=== PATIENT | female | born 1980 | race Caucasian/White ===

== ENCOUNTER 2022-09-18 19:33 | Outpatient (CLI) | payer OTHER, MEDICAID, SELFPAY ==
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
--- OUTSIDE RECORDS SUMMARY | 2022-10-21 08:45 | XMS_ITS | Encounter Summary ---
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 [place] [address] Mago Swift, Lead Systems Mgr Skewer Up - 08/05/21 [facility] Clinical Leela Jarvis, [facility] Pharmacist 07/26/22 05/15/[address] [place], [place] [phone] Marvin Miranda MD Gastroenterology 09/21/22 500 [facility] [address] [place] [address] Clari Ruiz Assigned MTM 09/17/22 Jocelyn [facility] Pharmacist [address] [facility] [address] [place] [address] documented as of this encounter
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
--- OUTSIDE RECORDS SUMMARY | 2022-10-21 08:46 | XMS_ITS | Encounter Summary ---
:1980 Author Organization [place] Address [address] [place] [address] Care Team Providers Name Role Phone Aydee Burton DOCUMENT MANAGEMENT ANALYST ALUMINUM SIDING INSTALLER Primary Care Provider Aydee Burton DOCUMENT MANAGEMENT ANALYST ALUMINUM SIDING INSTALLER Unavailable [phone] Louisa Hood DOCUMENT MANAGEMENT ANALYST ALUMINUM SIDING INSTALLER Unavailable [phone] Angel Hannah MD Unavailable Lesly Celaya MD Unavailable Tawana Patel MA Unavailable Unavailable Ramses Mcpherson MD Unavailable [phone] Obdulio Barrera MD Unavailable Obdulio Barrera MD Unavailable Lesvia Stanley EP Unavailable Marilia Deluna PhD Unavailable Niyah Decker [facility] Unavailable Lesvia Stanley Unavailable Delia Avila [facility] Unavailable [phone] Jamison Mago Terri [facility] Unavailable Leela Jarvis [facility] Unavailable Niyah Decker [facility] Unavailable Reason for Visit Reason Onset Date Comments Symptoms 09/15/2022 Face and neck pain Encounter Details Date Type Department Care Team Description 09/15/[address] [facility] Pain Julio Ponce MD Symptoms (Face [place] [address] [place] neck pain) [address] [place] [address] [address] [place] [address] [phone] Social History Tobacco Use Types Packs/Day Years [...] How often do you attend catholic or christianity services? 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/2021 7:53 PM DIE MOUNTER COVID-19 Exposure Response Date Recorded In the [...] removal While on the phone with this typewriter repairer pt was informed that she could be [...] to meet with staff. Rachel Russell RN Locomotive Lubricating Systems Clerk [facility] Telephone Encounter - Oliver Alfredo - 09/15/2022 12:53 PM CDT [facility] Call Center Phone Message May a detailed [...] can do. Please call Pt back at [phone] [facility] to advise. Action Taken: Message routed to: Other: [facility] Pain Travel Screening: Not Applicable documented in this encounter Plan of Treatment Upcoming Encounters Date Type Specialty Care Team Description 10/21/2022 Office Visit Pulmonology Obdulio Barrera MD [address] [id number] (Wo rk) 10/25/2022 PRE VISIT ENT Charo Burton MD Previsit [address] [place] [address] [phone] (Wo rk) 10/25/2022 Office Visit ENT Charo Burton MD [address] [place] [address] [phone] (Wo rk) 10/25/2022 Office Visit ENT Provider, Ent Dysphonia Opinion Polls Survey Worker 10/25/2022 Virtual Visit Pain & Palliative Care [place] Del[place] [address] [place], [place] [address] 10/28/2022 Appointment Speech Therapy Anabel Chew, TYPEWRITER REPAIRER [address] 126915 (Wo rk) 11/17/2022 Appointment Speech Therapy Anabel Chew, TYPEWRITER REPAIRER [address] [phone] (Wo rk) 12/01/2022 Office Visit Pain & [place] [address] [place], [place] [address] (Wo rk) 12/23/2022 Office Visit Neurology Colby Yeung MD [address] [place] [address] (Wo rk) documented as of this encounter Goals Goal Patient Goal Associated Recent Patient-Stated? Author Type Problems Progress Attend Speciality Care Plan Establish Care 50% Claudia Tee rn, Appointments (10/10/2022 Mago Murray, (PEST CONTROL SERVICE TECHNICIAN, 9:29 AM DIE MOUNTER) [facility] Psychiatry, Counseling, and the Sleep Clinic) Note: Formatting of this note is differe nt from the original. Barriers: Appointment availability. Strengths: Recognition of need, Care Water Pollution Control Inspector rdination involvement. Patient expressed understanding of goal: [...] Celaya MD [facility] Surgery [facility] To address painful lumps in my abdomin [...] (10/10/2022 Mago Prieto well-managed. self-managed 9:29 AM DIE MOUNTER) MARISA Murray W Note: Formatting of this [...] documented as of this encounter Care Teams Control Systems Developer Relationship Specialty Start Date End Date Aydee Burton, PCP - General Nurse Practitioner - 05/17/21 DOCUMENT MANAGEMENT ANALYST ALUMINUM SIDING INSTALLER Family [address] [place] [address] [phone] Aydee Burton, Assigned PCP 04/28/21 DOCUMENT MANAGEMENT ANALYST ALUMINUM SIDING INSTALLER [address] [place] [address] 094052 Louisa Hood, Assigned Neuroscience 07/11/21 DOCUMENT MANAGEMENT ANALYST ALUMINUM SIDING INSTALLER Provider 500 [place], [place] [address] [place], Assigned Sleep 08/01/21 Angel Turcios, Provider [address] [place], [place] [phone] Lesly Celaya MD Assigned Surgical 09/05/21 [address] Provider [place], [place] [address] Tawana Patel MA [facility] 09/30/21 Worker Ramses Mcpherson Assigned OBGYN 11/07/21 MD Onesimo Provider [address] [place], [place] [phone] Obdulio Barrera MD Critical Care 01/24/22 MD 420 [facility] 276 [place], [place] [address] Obdulio Barrera, Assigned Pulmonology 02/06/22 MD Provider 420 [facility] 276 [place], [place] [address] Lesvia Stanley, GHADA Cardiac Rehabilitation 03/03/22 03/03/23 [facility] Therapist [address] [place] [address] Marilia Deluna, PhD Assigned Behavioral 02/20/22 [address] [facility] [place] [address] Niyah Decker, [facility] Pharmacist Pharmacist 03/07/22 420 [facility] 812 [place], [place] [address] Lesvia Stanley, GHADA Cardiac Rehabilitation 03/17/22 03/17/23 [facility] Therapist [address] [address] Delia Avila, Pharmacist Pharmacist 06/07/22 [facility] [address] [place], [place] [address] Mago Swift, [facility] Lead Locomotive Lubricating Systems Clerk Boring Mill Operator - 08/05/21 Clinical Leela Jarvis, [facility] Pharmacist 07/26/22 05/15/23 [address] [facility] [address] [place] [id number] Niyah Decker, [facility] Assigned MTM 08/10/22 09/16/[address] [place] [address] 812 [place] [address] documented as of this encounter
--- OUTSIDE RECORDS SUMMARY | 2022-10-21 08:46 | XMS_ITS | Encounter Summary ---
:1980 Author Organization [place] Address [address] [place] [address] Care Team Providers Name Role Phone Aydee Burton FULL STACK PYTHON DEVELOPER ELECTRICAL SOLDERER Primary Care Provider Aydee Burton FULL STACK PYTHON DEVELOPER ELECTRICAL SOLDERER Unavailable [phone] Louisa Hood FULL STACK PYTHON DEVELOPER ELECTRICAL SOLDERER Unavailable [phone] Angel Hannah MD Unavailable Lesly Celaya MD Unavailable Tawana Patel MA Unavailable Unavailable Ramses Mcpherson MD Unavailable Obdulio Barrera MD Unavailable [phone] Obdulio Barrera MD Unavailable [phone] Lesvia Stanley EP Unavailable Marilia Deluna PhD Unavailable Niyah Decker [facility] Unavailable Lesvia Stanley Unavailable Delia Avila [facility] Unavailable [phone] Mago Swift [facility] Unavailable SimonaLeela [facility] Unavailable Clari Ruiz [facility] Unavailable Reason for Visit Reason Onset Date Comments Appointment 09/19/2022 Encounter Details Date Type Department Care Team Description 09/19/2022 Telephone [facility] Aydee Burton, Appointment [place] FULL STACK PYTHON DEVELOPER ELECTRICAL SOLDERER [address] [address] [place] [address] [phone] Social History Tobacco Use Types Packs/Day Years [...] How often do you attend baptism or congregation services? Never 08/05/2021 Do you [...] at Date Recorded Female 11/09/2021 7:53 PM COOK CHILI COVID-19 Exposure Response Date Recorded In the last 10 days, have you been in contact with No / Unsu re 09/18/2022 11:02 PM COOK CHILI someone who was confirmed or suspected to have Coronavirus/COVID-19? documented as of this encounter Miscellaneous Notes Telephone Encounter - Che Torres - 09/19/2022 5:13 PM CST Called patient and appt made for 09/20 at 9:30with Aydee Torres Slot Shift Supervisor CHILI Telephone Encounter - Aydee Burton APRN CNP - 09/19/2022 3:45 PM COOK CHILI Images from the original note were not included. Okay to use tomorrows approval only. Please schedule and make patient aware. TARA Spivey- CHILI Telephone Encounter - Mayda Stephens RN - [...] Please advise when to work in, thanks. CHILI Telephone Encounter - Shireen Purvis - 09/19/2022 [...] we send this information to you in MyChart or would you prefer to receive a phone call?: Patient would prefer a phone call Okay to leave a detailed message?: Yes at Cell number on file: Telephone Information: Call taken on 09/19/2022 at 2:19 PM by Shireen Purvis CHILI documented in this encounter Plan of Treatment Upcoming Encounters Date Type Specialty Care Team Description 10/21/2022 Office Visit Pulmonology Obdulio Barrera MD [address] [place] [address] [phone] (Wo rk) 10/25/2022 PRE VISIT ENT Charo Burton MD Previsit [address] [place] [address] [phone] (Wo rk) 10/25/2022 Office Visit Charo Carter MD [address] [place] [address] (Wo rk) 10/25/2022 Office Visit ENT Provider, Ent Dysphonia Ammonia Solution Preparer 10/25/2022 Virtual Visit Pain & Palliative Care Marilia Deluna[place] PhD [address] [place], [place] [address] 10/28/2022 Appointment Speech Therapy Anabel Chew, MARKETING TECHNOLOGIST [address] 7[address]65 (Wo rk) 11/17/2022 Appointment Speech Therapy Anabel Chew, MARKETING TECHNOLOGIST [address] [address] (Wo rk) 12/01/2022 Office Visit Pain & [place] [address] [place], [place] [address] (Wo rk) 12/23/2022 Office Visit Neurology Colby Yeung MD [address] [place] [address] (Wo rk) documented as of this encounter Goals Goal Patient Goal Associated Recent Patient-Stated? Author Type Problems Progress Attend Speciality Care Plan Establish Care 50% Claudia Tee rn, Appointments (10/10/2022 Mago Murray, (PIN STICKER, 9:29 AM COOK CHILI) [facility] Psychiatry, Counseling, and the Sleep Clinic) Note: Formatting of this note is differe nt from the original. Barriers: Appointment availability. Strengths: Recognition of need, Care Plier Worker rdination involvement. Patient expressed understanding of goal: [...] on: 08/16/2022 9:45 AM Lesly Celaya MD [facility] Surgery [facility] To address painful lumps in [...] (10/10/2022 Mago Prieto well-managed. self-managed 9:29 AM COOK CHILI) M, LICS W Note: Formatting of this [...] documented as of this encounter Care Teams Intervention Manager Relationship Specialty Start Date End Date Aydee Burton, PCP - General Nurse Practitioner - 05/17/21 FULL STACK PYTHON DEVELOPER ELECTRICAL SOLDERER Family [address] [place], [place] [address] Aydee Burton, Assigned PCP 04/28/21 FULL STACK PYTHON DEVELOPER ELECTRICAL SOLDERER [address] [place], [place] [address] Louisa Hood, Assigned Neuroscience 07/11/21 FULL STACK PYTHON DEVELOPER ELECTRICAL SOLDERER Provider 500 [place], [place] [phone] [place], Assigned Sleep 08/01/21 Angel Turcios, Provider [address] [place], [place] [phone] Lesly Celaya MD Assigned Surgical 09/05/21 [address] [facility] Provider [place], [place] [address] Tawana Patel MA [facility] 09/30/21 Worker Ramses Mcpherson Assigned OBGYN 11/07/21 MD Onesimo Provider [address] [facility] [place] [place] [phone] Obdulio Barrera MD Critical Care 01/24/22 420 [facility] 276 [place], [place] [address] Obdulio Barrera, Assigned Pulmonology 02/06/22 MD Provider 420 [facility] 276 [place], [place] [address] Lesvia Stanley, GHADA Cardiac Rehabilitation 03/03/22 03/03/23 [facility] Therapist [address] [place] [address] Marilia Deluna, PhD Assigned Behavioral 02/20/22 [address] [facility] [place] [address] Niyah Decker, [facility] Pharmacist Pharmacist 03/07/22 420 [facility] 812 [place], [place] [address] Lesvia Stanley, GHADA Cardiac Rehabilitation 03/17/22 03/17/23 [facility] Therapist [address] [place] [place] [address] Delia Avila, Pharmacist Pharmacist 06/07/22 [facility] 909 [place], [place] [address] Mago Swift [facility] Lead Electronic Assembly Senior Oracle Developer - 08/05/21 Clinical Leela Jarvis [facility] Pharmacist 07/26/22 05/15/23 3[address] [facility] [address] [place] [address] Clari Ruiz Assigned MTM 09/17/22 Jocelyn [facility] Pharmacist [address] [place] [address] documented as of this encounter
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
--- OUTSIDE RECORDS SUMMARY | 2022-10-21 08:46 | XMS_ITS | Encounter Summary ---
:1980 Author Organization [place] Address [address] [place] [address] Care Team Providers Name Role Phone Aydee Burton GOLD STAMPER DEVELOPMENT SPECIALIST Primary Care Provider Aydee Burton GOLD STAMPER DEVELOPMENT SPECIALIST Unavailable [phone] Louisa Hood GOLD STAMPER DEVELOPMENT SPECIALIST Unavailable [phone] Angel Hannah MD Unavailable Lesly Celaya MD Unavailable Tawana Patel MA Unavailable Unavailable Ramses Mcpherson MD Unavailable Obdulio Barrera MD Unavailable Obdulio Barrera MD Unavailable [phone] Lesvia Stanley EP Unavailable Marilia Deluna PhD Unavailable Niyah Decker [facility] Unavailable Lesvia Stanley Unavailable AustinOhDelia Mel [facility] Unavailable [phone] JamisonMago [facility] Unavailable Leela Jarvis [facility] Unavailable Niyah Decker [facility] Unavailable Encounter Details Date Type Department [...] How often do you attend jew or adventism services? Never 08/05/2021 Do you [...] at Date Recorded Female 11/09/2021 7:53 PM NEIGHBORHOOD PLANNER COVID-19 Exposure Response Date Recorded In the last 10 days, have you been in contact with No / Unsu re 09/15/2022 11:46 AM CDT someone who was confirmed or suspected to have Coronavirus/COVID-19? documented as of this encounter Plan of Treatment Upcoming Encounters Date Type Specialty Care Team Description 10/21/2022 Office Visit Pulmonology Obdulio Barrera MD 420 [facility] 276 [place], [place] [address] (Wo rk) 10/25/2022 PRE VISIT ENT Charo Burton MD Previsit [address] [place] [address] (Wo rk) 10/25/2022 Office Visit ENT Charo Burton MD [address] [place] [address] (Wo rk) 10/25/2022 Office Visit ENT Provider, Ent Dysphonia Stabber 10/25/2022 Virtual Visit Pain & Palliative Care [place] [address] [place], [place] [address] 10/28/2022 Appointment Speech Therapy Anabel Chew, PLASTIC SURGERY TECHNICIAN [address] 638895 (Wo rk) 11/17/2022 Appointment Speech Therapy Anabel Chew, PLASTIC SURGERY TECHNICIAN [address] 198[address] (Wo rk) 12/01/2022 Office Visit Pain & [place] [address] [place], [place] [address] (Wo rk) 12/23/2022 Office Visit Neurology Colby Yeung MD [address] [place] [address] (Wo rk) documented as of this encounter Goals Goal Patient Goal Associated Recent Patient-Stated? Author Type Problems Progress Attend Speciality Care Plan Establish Care 50% No Randal rn, Appointments (10/10/2022 Mago Murray, (JOB PLACEMENT COUNSELOR, 9:29 AM NEIGHBORHOOD PLANNER) [facility] Psychiatry, Counseling, and the Sleep Clinic) Note: Formatting of this note is differe nt from the original. Barriers: Appointment availability. Strengths: Recognition of need, Care Shelver rdination involvement. Patient expressed understanding of goal: [...] Celaya MD [facility] To address painful lumps in my abdomin [...] No Mago Swift well-managed. self-managed 9:29 AM NEIGHBORHOOD PLANNER) M, MARISA W Note: Formatting of this [...] documented as of this encounter Care Teams Sexer Relationship Specialty Start Date End Date Aydee Burton, PCP - General Nurse Practitioner - 05/17/21 GOLD STAMPER DEVELOPMENT SPECIALIST Family [address] [place], [place] [phone] Aydee Burton, Assigned PCP 04/28/21 GOLD STAMPER DEVELOPMENT SPECIALIST [address] [place], [place] [phone] Louisa Hood, Assigned Neuroscience 07/11/21 GOLD STAMPER DEVELOPMENT SPECIALIST Provider [address] [place], [place] [phone] [place], Assigned Sleep 08/01/21 Angel Turcios, Provider [address] [place], [place] [phone] Lesly Celaya MD Assigned Surgical 09/05/21 [address] [place] [place] [address] Tawana Patel MA [facility] 09/30/21 Worker Ramses Mcpherson Assigned OBGYN 11/07/21 MD Onesimo Provider [address] [place] [address] Obdulio Barrera MD Critical Care 01/24/22 420 [facility] 276 [place], [place] [phone] Obdulio Barrera, Assigned Pulmonology 02/06/22 MD Provider 420 [facility] 276 [place], [place] [address] Lesvia Stanley, GHADA Cardiac Rehabilitation 03/03/22 03/03/23 [facility] Therapist [address] [address] Marilia Deluna, PhD Assigned Behavioral 02/20/22 [address] [facility] [place] [place] [address] Niyah Decker, [facility] Pharmacist Pharmacist 03/07/[address] [place] [address] 812 [place], [place] [address] Lesvia Stanley, GHADA Cardiac Rehabilitation 03/17/22 03/17/23 [facility] Therapist [address] [address] Delia Avila, Pharmacist Pharmacist 06/07/22 [facility] [address] [place] [address]4225 Mago Swift, [facility] Lead Labor Operator Nuclear Physician - 08/05/21 Clinical Leela Jarvis [facility] Pharmacist 07/26/22 05/15/[address] [place] [address] [address] [place] [phone] Niyah Decker, [facility] Assigned MTM 08/10/22 09/16/22 420 [facility] 812 Pharmacist [place], [place] [address] documented as of this encounter
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
--- OUTSIDE RECORDS SUMMARY | 2022-10-21 08:46 | XMS_ITS | Encounter Summary ---
:1980 Author Organization [facility] Address [address] [place] [address] Care Team Providers Name Role Phone Aydee Burton ELECTRIC TRACK SWITCH MAINTAINER SQL APPLICATION DEVELOPER Primary Care Provider Aydee Burton ELECTRIC TRACK SWITCH MAINTAINER SQL APPLICATION DEVELOPER Unavailable [phone] Louisa Hood ELECTRIC TRACK SWITCH MAINTAINER SQL APPLICATION DEVELOPER Unavailable [phone] Angel Hannah MD Unavailable Lesly Celaya MD Unavailable Tawana Patel MA Unavailable Unavailable Ramses Mcpherson MD Unavailable [phone] Obdulio Barrera MD Unavailable [phone] Obdulio Barrera MD Unavailable [phone] Lesvia Stanley EP Unavailable Marilia Deluna PhD Unavailable Niyah Decker [facility] Unavailable Lesvia Stanley Unavailable Delia Avila [facility] Unavailable [phone] Mago Swift [facility] Unavailable Leela Jarvis [facility] Unavailable Niyah Decker [facility] Unavailable Reason for Visit Reason Onset Date Comments Facial Pain 09/15/2022 Encounter Details Date Type Department Care Team Description 09/15/2022 Telephone [facility] Aydee Burton Delfina lynda, Facial Pain [place] ELECTRIC TRACK SWITCH MAINTAINER SQL APPLICATION DEVELOPER [address] [facility] [address] [address] [place] [address] [phone] Social History Tobacco Use Types Packs/Day Years [...] How often do you attend rastafarian or druze services? Never 08/05/2021 Do you [...] at Date Recorded Female 11/09/2021 7:53 PM AWS CONSULTANT COVID-19 Exposure Response Date Recorded In the last 10 days, have you been in contact with No / Unsu re 09/15/2022 11:46 AM CDT someone who was confirmed or suspected to have Coronavirus/COVID-19? documented as of this encounter Miscellaneous Notes Telephone Encounter - Mayda Stephens RN - 09/15/2022 12:41 PM CDT Patient calling back. Currently at [facility] and states the wait is 4 hrs. She will contact neuro and/or pain clinic for their recommendation. Telephone Encounter - Aydee Burton APRN CNP - 09/15/2022 11:04 AM CDT Images from the original note were not included. Agree with advise. TARA Spivey-NICOLE Telephone Encounter - Ciara Montejo RN - [...] works for 45 minutes Advised can go for severe pain Advised can call pain clinic and or neurology for advise too Declined to set up an in person appointment at this time. E visit-advised provider Ciara Mg RN [facility] Triage documented in this encounter Plan of Treatment Upcoming Encounters Date Type Specialty Care Team Description 10/21/2022 Office Visit Pulmonology Obdulio Barrera MD [address] [place] [phone] (Wo rk) 10/25/2022 PRE VISIT ENT Cahro Burton MD Previsit [address] [place] [address] (Wo rk) 10/25/2022 Office Visit ENT Charo Burton MD [address] [place] [phone] (Wo rk) 10/25/2022 Office Visit ENT Provider, Ent Dysphonia Automobile Mechanic Supervisor 10/25/2022 Virtual Visit Pain & Palliative Care Marilia Del[place] [address] [place], [place] [address] 10/28/2022 Appointment Speech Therapy Anabel Chew, CLERICAL TRANSCRIBER [address] [address] (Wo rk) 11/17/2022 Appointment Speech Therapy Anabel Chew, CLERICAL TRANSCRIBER [address] [phone] (Wo rk) 12/01/2022 Office Visit Pain & [place] [address] [place], [place] [address] (Wo rk) 12/23/2022 Office Visit Neurology Colby Yeung MD [address] [place] [phone] (Wo rk) documented as of this encounter Goals Goal Patient Goal Associated Recent Patient-Stated? Author Type Problems Progress Attend Speciality Care Plan Establish Care 50% Claudia Tee rn, Appointments (10/10/2022 Mago Murray, (LENS SILVERER, 9:29 AM AWS CONSULTANT) [facility] Psychiatry, Counseling, and the Sleep Clinic) Note: Formatting of this note is differe nt from the original. Barriers: Appointment availability. Strengths: Recognition of need, Care Tanning Consultant rdination involvement. Patient expressed understanding of [...] Lesly Celaya MD [facility] Surgery [facility] To address [...] (10/10/2022 Mago Prieto well-managed. self-managed 9:29 AM AWS CONSULTANT) M, LICS W Note: Formatting of this [...] documented as of this encounter Care Teams Magnetometer Operator Relationship Specialty Start Date End Date Aydee Burton, PCP - General Nurse Practitioner - 05/17/21 ELECTRIC TRACK SWITCH MAINTAINER SQL APPLICATION DEVELOPER Family [address] [place] [id number] Aydee Burton, Assigned PCP 04/28/21 ELECTRIC TRACK SWITCH MAINTAINER SQL APPLICATION DEVELOPER [address] [place] [phone] Louisa Hood, Assigned Neuroscience 07/11/21 ELECTRIC TRACK SWITCH MAINTAINER SQL APPLICATION DEVELOPER Provider [address] [place], [place] [address] [place], Assigned Sleep 08/01/21 Angel Turcios, Provider [address] [address] Lesly Celaya MD Assigned Surgical 09/05/21 [address] Provider [place], [place] [phone] Tawana Patel MA [facility] 09/30/21 Worker Ramses Mcpherson Assigned OBGYN 11/07/21 MD Onesimo Provider [address] [place] [address] Obdulio Barrera MD Critical Care 01/24/[address] [place] [address] [address] [place], [place] [address] Obdulio Barrera, Assigned Pulmonology 02/06/22 MD Provider [address] [place] [address] 276 [place], [place] [address] Lesvia Stanley, GHADA Cardiac Rehabilitation 03/03/22 03/03/23 [facility] Therapist [address] [address] Marilia Deluna, PhD Assigned Behavioral 02/20/22 [address] [facility] [place] [address] Niyah Decker, [facility] Pharmacist Pharmacist 03/07/[address] [place] [address] [address] [place] [address] Lesvia Stanley, GHADA Cardiac Rehabilitation 03/17/22 03/17/23 [facility] Therapist [address] [address] Delia Avila, Pharmacist Pharmacist 06/07/22 [facility] [address] [place], [place] [address] Mago Swift, [facility] Lead Mems Integration Engineer Blueprint Maker - 08/05/21 Clinical Leela Jarvis, [facility] Pharmacist 07/26/22 05/15/[address] [facility] [address] [place] [phone] Niyah Decker, [facility] Assigned MTM 08/10/22 09/16/[address] [place] [address] 81 [place] [address] documented as of this encounter
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
--- OUTSIDE RECORDS SUMMARY | 2022-10-21 08:46 | XMS_ITS | Encounter Summary ---
:1980 Author Organization [place] Address [address] [place] [address] Care Team Providers Name Role Phone Aydee Burton THERAPEUTIC MENTOR HUMAN RESOURCES TRAINEE Primary Care Provider Aydee Burton THERAPEUTIC MENTOR HUMAN RESOURCES TRAINEE Unavailable [phone] Louisa Hood THERAPEUTIC MENTOR HUMAN RESOURCES TRAINEE Unavailable [phone] Angel Hannah MD Unavailable Lesly Celaya MD Unavailable Tawana Patel MA Unavailable Unavailable Ramses Mcpherson MD Unavailable [phone] Obdulio Barrera MD Unavailable [phone] Obdulio Barrera MD Unavailable [phone] Lesvia Stanley EP Unavailable Marilia Deluna PhD Unavailable Niyah Decker [facility] Unavailable Lesvia Stanley Unavailable Delia Avila [facility] Unavailable [phone] Mago Swift [facility] Unavailable SimonaLeela [facility] Unavailable Clari Ruiz [facility] Unavailable [phone] Encounter Details Date Type Department Care Team [...] How often do you attend tenriism or roman catholic services? Never 08/05/2021 Do [...] at Date Recorded Female 11/09/2021 7:53 PM COLLEGE ADMISSIONS COUNSELOR COVID-19 Exposure Response Date Recorded In the last 10 days, have you been in contact with No / Unsu re 09/18/2022 11:02 PM COLLEGE ADMISSIONS COUNSELOR someone who was confirmed or suspected to have Coronavirus/COVID-19? documented as of this encounter Plan of Treatment Upcoming Encounters Date Type Specialty Care Team Description 10/21/2022 Office Visit Pulmonology Obdulio Barrera MD 420 [facility] 276 [place], [place] [address] (Wo rk) 10/25/2022 PRE VISIT ENT Charo Burton MD Previsit [address] [place] [address] (Wo rk) 10/25/2022 Office Visit ENT Charo Burton MD [address] [place] [address] (Wo rk) 10/25/2022 Office Visit ENT Provider, Ent Dysphonia Call Centre Supervisor 10/25/2022 Virtual Visit Pain & Palliative Care [place] [address] [place], [place] [address] 10/28/2022 Appointment Speech Therapy Anabel Chew, RETAIL AND RESTAURANT [address] [address]23985 (Wo rk) 11/17/2022 Appointment Speech Therapy Anabel Chew, RETAIL AND RESTAURANT [address] [address] (Wo rk) 12/01/2022 Office Visit Pain & [place] [address] [place], [place] [address] (Wo rk) 12/23/2022 Office Visit Neurology Colby Yeung MD [address] [place] [address] (Wo rk) documented as of this encounter Goals Goal Patient Goal Associated Recent Patient-Stated? Author Type Problems Progress Attend Speciality Care Plan Establish Care 50% No Randal rn, Appointments (10/10/2022 Mago Murray, (PARTS CATALOGUER, 9:29 AM COLLEGE ADMISSIONS COUNSELOR) [facility] Psychiatry, Counseling, and the Sleep Clinic) Note: Formatting of this note is differe nt from the original. Barriers: Appointment availability. Strengths: Recognition of need, Care Fit Model rdination involvement. Patient expressed understanding of goal: [...] Lesly Celaya MD [facility] To address painful lumps in my abdomin [...] No Mago Swift well-managed. self-managed 9:29 AM COLLEGE ADMISSIONS COUNSELOR) M, MARISA W Note: Formatting of this [...] documented as of this encounter Care Teams Branch Customer Service Representative Relationship Specialty Start Date End Date Aydee Burton, PCP - General Nurse Practitioner - 05/17/21 THERAPEUTIC MENTOR HUMAN RESOURCES TRAINEE Family [address] [place], [place] [phone] Aydee Burton, Assigned PCP 04/28/21 THERAPEUTIC MENTOR HUMAN RESOURCES TRAINEE [address] [place], [place] [phone] Louisa Hood, Assigned Neuroscience 07/11/21 THERAPEUTIC MENTOR HUMAN RESOURCES TRAINEE Provider [address] [place], [place] [phone] [place], Assigned Sleep 08/01/21 Angel Turcios, Provider [address] [facility] [address] [place], [place] [phone] Lesly Celaya MD Assigned Surgical 09/05/21 [address] [place] [address] Tawana Patel MA [facility] 09/30/21 Worker Ramses Mcpherson Assigned OBGYN 11/07/21 MD Onesimo Provider [address] [place] [address] Obdulio Barrera MD Critical Care 01/24/22 420 [facility] [address] [place], [place] [phone] Obdulio Barrera, Assigned Pulmonology 02/06/22 MD Provider 420 [facility] [address] [place], [place] [address] Lesvia Stanley, GHADA Cardiac Rehabilitation 03/03/22 03/03/23 [facility] Therapist [address] [place] [address] Marilia Deluna, PhD Assigned Behavioral 02/20/22 [address] [facility] Health Provider [place], [place] [phone] Niyah Decker, [facility] Pharmacist Pharmacist 03/07/22 420 [facility] [address] [place], [place] [address] Lesvia Stanley, GHADA Cardiac Rehabilitation 03/17/22 03/17/23 [facility] Therapist [address] [address] Delia Avila, Pharmacist Pharmacist 06/07/22 [facility] [address] [place], [place] [address] Mago Swift, [facility] Lead Business Analyst Intern Cable Systems Installer - 08/05/21 Clinical Leela Jarvis [facility] Pharmacist 07/26/22 05/15/23 [address] [facility] [address] [place], [place] [phone] Clari Ruiz Assigned [place] 09/17/22 Jocelyn [facility] Pharmacist [address] [place], [place] [address] documented as of this encounter
--- OUTSIDE RECORDS SUMMARY | 2022-10-21 08:46 | XMS_ITS | Encounter Summary ---
:1980 Author Organization [place] Address [address] [place] [address] Care Team Providers Name Role Phone Aydee Burton LEAD DATA ENTRY OPERATOR TENNIS NET MAKER Primary Care Provider Aydee Burton LEAD DATA ENTRY OPERATOR TENNIS NET MAKER Unavailable [phone] Louisa Hood LEAD DATA ENTRY OPERATOR TENNIS NET MAKER Unavailable [phone] Angel Hannah MD Unavailable Lesly Celaya MD Unavailable Tawana Patel MA Unavailable Unavailable Ramses Mcpherson MD Unavailable [phone] Obdulio Barrera MD Unavailable [phone] Obdulio Barrera MD Unavailable [phone] Lesvia Stanley EP Unavailable Marilia Deluna PhD Unavailable Niyah Decker [facility] Unavailable Lesvia Stanley Unavailable Delia Avila [facility] Unavailable [phone] JamisonMago [facility] Unavailable Leela Jarvis [facility] Unavailable Niyah Decker [facility] Unavailable Reason for Visit Diagnostic Imaging XR (Routine) - Pending Review Specialty Diagnoses / Procedures Referred By Contact Refer red To Contact Diagnoses Neck pain Jocelyn Thompson Procedures XR Cervical Spine 12/16 Views MD Rachel [address] [place], [place] [address] Referral ID Status Reason Start Date Expiration Date Visits V isits Requested Authorized [id number] Pending 09/15/2022 09/15/2023 1 1 Review Encounter Details Date Type Department Care Team Description 09/15/2022 Ancillary Procedure [facility] Jay, Ne[facility] pain [facility] [place] Jocelyn Ramos, [address] [facility] [place], [place] [address] [address] [place], [place] [phone] (Wo rk) Social History Tobacco Use Types [...] often do you attend jehovah's witness or druze services? Never 08/05/2021 Do you [...] at Date Recorded Female 11/09/2021 7:53 PM INTER COM INSTALLER COVID-19 Exposure Response Date Recorded In the last 10 days, have you been in contact with No / Unsu re 09/15/2022 11:46 AM CDT someone who was confirmed or suspected to have Coronavirus/COVID-19? documented as of this encounter Plan of Treatment Upcoming Encounters Date Type Specialty Care Team Description 10/21/2022 Office Visit Pulmonology [place], Obdulio Bailey MD 420 [facility] [address] [place], [place] [address] (Wo rk) 10/25/2022 PRE VISIT ENT Charo Burton MD Previsit [address] [place] [address] [phone] (Wo rk) 10/25/2022 Office Visit Charo Carter MD [address] [place] [address] [phone] (Wo rk) 10/25/2022 Office Visit ENT Provider, Jeannette Ent Dysphonia Truck Despatcher 10/25/2022 Virtual Visit Pain & [place]iative [place] [address] [place], [place] [address] 10/28/2022 Appointment Speech Therapy Anabel Chew, CABLE INSTALLER REPAIRER HELPER [facility] [address] [place] [address] 396 [place] [address] (Wo rk) 11/17/2022 Appointment Speech Therapy Anabel Chew, CABLE INSTALLER REPAIRER HELPER [address] [place], [place] [address] (Wo rk) 12/01/2022 Office Visit Pain & [place] [address] [place], [place] [address] (Wo rk) 12/23/2022 Office Visit Neurology Colby Yeung MD [address] [place] [address] (Wo rk) documented as of this encounter Goals Goal Patient Goal Associated Recent Patient-Stated? Author Type Problems Progress Attend Speciality Care Plan Establish Care 50% No Randal rn, Appointments (10/10/2022 Mago Murray, (AIRPORT MAINTENANCE CHIEF, 9:29 AM INTER COM INSTALLER) [facility] Psychiatry, Counseling, and the Sleep Clinic) Note: Formatting of this note is differe nt from the original. Barriers: Appointment availability. Strengths: Recognition of need, Care Customs Appraiser rdination involvement. Patient expressed understanding of goal: [...] on: 08/16/2022 9:45 AM Lesly Celaya MD [facility] [place] To address painful lumps in my abdomin [...] No Mago Swift well-managed. self-managed 9:29 AM INTER COM INSTALLER) M, LICS W Note: Formatting of this [...] EXAM: XR CERVICAL SPINE 2/3 VIEWS LOCATION: [facility] DATE/TIME: 09/15/2022 4:54 PM INDICATION: Chronic neck pain, s p fall last evening. ??Rule out fracture. COMPARISON: None. TECHNIQUE: CR Cervical Spine. Procedure Note Obdulio Ahmadi MD - 09/15/2022Forma tting of this note might be different from the original. EXAM: XR CERVICAL SPINE 2/3 VIEWS LOCATION: [facility] DATE/TIME: 09/15/2022 4:54 PM INDICATION: [...] encounter Visit Diagnoses Diagnosis Neck pain Cervicalgia documented in this encounter Additional Health Concerns Problem Noted Date Establish Care 07/05/2022 Chronic Pain is not self-managed 07/05/2022 Assessment Noted Time PHQ-9 Depression Total Score: 17 09/02/2022 2:19 PM CD T documented as of this encounter Care Teams Employee'S Representative Relationship Specialty Start Date End Date Aydee Burton, PCP - General Nurse Practitioner - 05/17/21 LEAD DATA ENTRY OPERATOR TENNIS NET MAKER Family [address] [place] [address] [phone] Aydee Burton, Assigned PCP 04/28/21 LEAD DATA ENTRY OPERATOR TENNIS NET MAKER [address] [place] [address] Louisa Hood, Assigned Neuroscience 07/11/21 LEAD DATA ENTRY OPERATOR TENNIS NET MAKER Provider [address] [place], [place] [phone] [place], Assigned Sleep 08/01/21 Angel Turcios, Provider [address] [place], [place] [address] Lesly Celaya MD Assigned Surgical 09/05/21 [address] Provider [place], [place] [phone] Tawana Patel MA [facility] 09/30/21 Worker Ramses Mcpherson Assigned OBGYN 11/07/21 MD Onesimo Provider [address] [place], [place] [address] Obdulio Barrera MD Critical Care 01/24/[address] [place] [address] 276 [place], [place] [address] Obdulio Barrera, Assigned Pulmonology 02/06/22 MD Provider [address] [place] [address] 276 [place], [place] [address] Lesvia Stanley, GHADA Cardiac Rehabilitation 03/03/22 03/03/23 [facility] Therapist [address] [place] [place] [address] Mariila Deluna, PhD Assigned Behavioral 02/20/22 [address] [facility] [place] [address] Niyah Decker, [facility] Pharmacist Pharmacist 03/07/[address] [place] [address] [address] [place], [place] [phone] Lesvia Stanley, GHADA Cardiac Rehabilitation 03/17/22 03/17/23 [facility] Therapist [address] [place] [phone] Delia Avila, Pharmacist Pharmacist 06/07/22 [facility] 909 [place], [place] [address] Mago Swift [facility] Lead Soda Fountain Operator Canary Breeder - 08/05/21 Clinical Leela Jarvis [facility] Pharmacist 07/26/22 05/15/23 [address] [facility] [address] Niyah Decker, [facility] Assigned MTM 08/10/22 09/16/22 420 [facility] 812 [place] [address] documented as of this encounter
--- OUTSIDE RECORDS SUMMARY | 2022-10-21 08:46 | XMS_ITS | Encounter Summary ---
:1980 Author Organization [place] Address [address] [place] [address] Care Team Providers Name Role Phone Aydee Burton YARD DRIVER GRADES 1 THROUGH 6 TEACHER Primary Care Provider Aydee Burton YARD DRIVER GRADES 1 THROUGH 6 TEACHER Unavailable [phone] Louisa Hood YARD DRIVER GRADES 1 THROUGH 6 TEACHER Unavailable [phone] Angel Hannah MD Unavailable Lesly Celaya MD Unavailable Tawana Patel MA Unavailable Unavailable Ramses Mcpherson MD Unavailable [phone] Obdulio Barrera MD Unavailable [phone] Obdulio Barrera MD Unavailable [phone] Lesvia Stanley EP Unavailable Marilia Deluna PhD Unavailable Niyah Decker [facility] Unavailable Lesvia Stanley Unavailable MandDelia virgen [facility] Unavailable [phone] [facility] Unavailable SimonaLeela [facility] Unavailable Niyah Decker [facility] Unavailable Reason for Referral Diagnostic Imaging XR (Routine) - Pending Review Specialty Diagnoses / Procedures Referred By Contact Refer red To Contact Diagnoses Neck pain Jocelyn Thompson Procedures XR Cervical Spine 2/3 Views MD Rachel [address] [place], [place] [address] Referral ID Status Reason Start Date Expiration Date Visits V isits Requested Authorized [id number] Pending 09/15/2022 09/15/2023 1 1 Review Reason [...] Department Care Team Description 09/15/2022 Office Visit [facility] Jay, Left f acial pain (Primary Dx); Urgent Care [facility] Jocelyn Ramos, Paresthesias; [address] DAVE HERMAN MD Neck pain [place], [place] [address] [address] [place], [place] [phone] Social History Tobacco Use Types Packs/Day Years [...] How often do you attend uatsdin or quaker services? Never 08/05/2021 Do you [...] at Date Recorded Female 11/09/2021 7:53 PM SHALE MINER COVID-19 Exposure Response Date Recorded In the [...] noted in Patient Instructions. 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 The scar from the previous left [...] seen. Final Radiology report was reviewed in [facility], which reads as follows: IMPRESSION: No [...] 10/21/2022 Office Visit Pulmonology Obdulio Barrera MD [address] [place] [address] (Wo rk) 10/25/2022 PRE VISIT ENT Charo Burton MD Previsit [address] [place] [address] 209155 (Wo rk) 10/25/2022 Office Visit ENT Charo Burton MD [address] [place] [phone] (Wo rk) 10/25/2022 Office Visit ENT Provider, Ent Dysphonia Agricultural Service Technician 10/25/2022 Virtual Visit Pain & Palliative Care Marilia Del[place], [place] [address] [place], [place] [address] 10/28/2022 Appointment Speech Therapy Anabel Chew, FILM REPRODUCER [address] [address] (Wo rk) 11/17/2022 Appointment Speech Therapy Anabel Chew FILM REPRODUCER [address] [phone] (Wo rk) 12/01/2022 Office Visit Pain & [place] [address] [place], [place] [address] (Wo rk) 12/23/2022 Office Visit Neurology Colby Yeung MD [address] [place] [address] (Wo rk) documented as of this encounter Goals Goal Patient Goal Associated Recent Patient-Stated? Author Type Problems Progress Attend Speciality Care Plan Establish Care 50% Claudia Tee rn, Appointments (10/10/2022 Mago Murray, (POSTAL CLERK, 9:29 AM SHALE MINER) [facility] Psychiatry, Counseling, and the Sleep Clinic) Note: Formatting of this note is differe nt from the original. Barriers: Appointment availability. Strengths: Recognition of need, Care Party Demonstrator rdination involvement. Patient expressed understanding of goal: [...] on: 08/16/2022 9:45 AM Lesly Celaya MD [facility] To address painful lumps in my [...] No Mago Swift well-managed. self-managed 9:29 AM SHALE MINER) MMARISA W Note: Formatting of this note [...] EXAM: XR CERVICAL SPINE 2/3 VIEWS LOCATION: [facility] DATE/TIME: 09/15/2022 4:54 PM INDICATION: Chronic neck pain, s p fall last evening. ??Rule out fracture. COMPARISON: None. TECHNIQUE: CR Cervical Spine. Procedure Note Obdulio Ahmadi MD - 09/15/2022Forma tting of this note might be different from the original. EXAM: XR CERVICAL SPINE 2/3 VIEWS LOCATION: [facility] DATE/TIME: 09/15/2022 4:54 PM INDICATION: Chronic neck [...] sensation Neck pain Cervicalgia Neck pain Cervicalgia documented in this encounter Additional Health Concerns Problem Noted Date Establish Care 07/05/2022 Chronic Pain is not self-managed 07/05/2022 Assessment Noted Time PHQ-9 Depression Total Score: 17 09/02/2022 2:19 PM CD T documented as of this encounter Care Teams Department Operations Manager Relationship Specialty Start Date End Date Aydee Burton, PCP - General Nurse Practitioner - 05/17/21 YARD DRIVER GRADES 1 THROUGH 6 TEACHER Family [address] [place], [place] [phone] Aydee Burton, Assigned PCP 04/28/21 YARD DRIVER GRADES 1 THROUGH 6 TEACHER [address] [place], [place] [phone] Louisa Hood, Assigned Neuroscience 07/11/21 YARD DRIVER GRADES 1 THROUGH 6 TEACHER Provider 500 [place] [address] [place], Assigned Sleep 08/01/21 Angel Turcios, Provider 606 [facility] [address] [facility] 106 [place], [place] [phone] Lesly Celaya MD Assigned Surgical 09/05/21 [address] Provider [place], [place] [phone] [facility] 09/30/21 Worker Ramses Mcpherson Assigned OBGYN 11/07/21 MD Onesimo Provider [address] [place] [address] Obdulio Barrera MD Critical Care 01/24/[address] [place] [phone] Obdulio Barrera, Assigned Pulmonology 02/06/[address] 3[address] Lesvia Stanley EP Cardiac Rehabilitation 03/03/22 03/03/23 [facility] Therapist [address] [address] Marilia Deluna, PhD Assigned Behavioral 02/20/22 [address] [facility] Health Provider [address] [place] [address] Niyah Decker, [facility] Pharmacist Pharmacist 03/07/22 420 [facility] 812 [place], [place] [address] Lesvia Stanley, GHADA Cardiac Rehabilitation 03/17/22 03/17/23 [facility] Therapist [address] [id number] Delia Avila, Pharmacist Pharmacist 06/07/22 [facility] 909 [place], [place] [address] Mago Swift [facility] Lead Tailor Apprentice Compliance Investigator - 08/05/21 Clinical Leela Jarvis [facility] Pharmacist 07/26/22 05/15/23 3305 [facility] [address] [place] [phone] Niyah Decker, [facility] Assigned MTM 08/10/22 09/16/22 420 [facility] 812 Pharmacist [place], [place] [address] documented as of this encounter
--- OUTSIDE RECORDS SUMMARY | 2022-10-21 08:46 | XMS_ITS | Encounter Summary ---
:1980 Author Organization [place] Address [address] [place] [address] Care Team Providers Name Role Phone Aydee Burton BOAT HOIST OPERATOR ELECTRIC ORGAN ASSEMBLER Primary Care Provider Aydee Burton BOAT HOIST OPERATOR ELECTRIC ORGAN ASSEMBLER Unavailable [phone] Louisa Hood BOAT HOIST OPERATOR ELECTRIC ORGAN ASSEMBLER Unavailable [phone] Angel Hannah MD Unavailable Lesly Celaya MD Unavailable Tawana Patel MA Unavailable Unavailable Ramsse Mcpherson MD Unavailable [phone] Obdulio Barrera MD Unavailable [phone] Obdulio Barrera MD Unavailable [phone] Lesvia Stanley EP Unavailable Marilia Deluna PhD Unavailable Niyah Decker [facility] Unavailable Lesvia Stanley Unavailable Austin Delia Mel [facility] Unavailable [phone] JamisonKikiMago Terri [facility] Unavailable Leela Jarvis [facility] Unavailable Niyah Decker [facility] Unavailable Reason for Visit Reason Comments Other Entered automatically based on patient selection in [employer]. Encounter Details Date Type Department Care Team Description 09/15/2022 E-Visit [facility] Aydee Burton Other (Ent ered Clinic [facility], BOAT HOIST OPERATOR ELECTRIC ORGAN ASSEMBLER automatically based on [address] [place] [address] [place], [place] [phone] (Wo rk) [address] [phone] Social History Tobacco Use Types Packs/Day Years [...] How often do you attend amish or latter day services? Never 08/05/2021 Do [...] Date Recorded Female 11/09/2021 7:53 PM DIRECTOR OF BUSINESS SERVICES COVID-19 Exposure Response Date Recorded In the [...] Visit Pulmonology Obdulio Barrera MD [address] [phone] (Wo rk) 10/25/2022 PRE VISIT ENT Charo Burton MD Previsit [address]09 [place], [place] [phone] (Wo rk) 10/25/2022 Office Visit ENT Charo Burton MD [address] [place], [place] [address] (Wo rk) 10/25/2022 Office Visit ENT Provider, Ent Dysphonia Chicken Boner 10/25/2022 Virtual Visit Pain & Palliative Care [place] [address] [place], [place] [address] 10/28/2022 Appointment Speech Therapy Anabel Chew, BACK PADDER [address] [phone] (Wo rk) 11/17/2022 Appointment Speech Therapy Anabel Chew, BACK PADDER [address] [address] (Wo rk) 12/01/2022 Office Visit Pain & [place] [address] [place], [place] [address] (Wo rk) 12/23/2022 Office Visit Neurology Colby Yeung MD [address] [place] [address] (Wo rk) documented as of this encounter Goals Goal Patient Goal Associated Recent Patient-Stated? Author Type Problems Progress Attend Speciality Care Plan Establish Care 50% No Randal rn, Appointments (10/10/2022 Mago Murray (WELT SOLE LAYER, 9:29 AM DIRECTOR OF BUSINESS SERVICES) [facility] Psychiatry, Counseling, and the Sleep Clinic) Note: Formatting of this note is differe nt from the original. Barriers: Appointment availability. Strengths: Recognition of need, Care Landscape Designer rdination involvement. Patient expressed understanding of goal: [...] on: 08/16/2022 9:45 AM Lesly Celaya MD [facility] To address painful lumps in my abdomin [...] Mago Swift well-managed. self-managed 9:29 AM DIRECTOR OF BUSINESS SERVICES) M, MARISA W Note: Formatting of this [...] Diagnoses Diagnosis Fall, initial encounter - Primary documented in this encounter Additional Health Concerns Problem Noted Date Establish Care 07/05/2022 Chronic Pain is not self-managed 07/05/2022 Assessment Noted Time PHQ-9 Depression Total Score: 17 09/02/2022 2:19 PM CD T documented as of this encounter Care Teams Merchandise Support Associate Relationship Specialty Start Date End Date Aydee Burton, PCP - General Nurse Practitioner - 05/17/21 BOAT HOIST OPERATOR ELECTRIC ORGAN ASSEMBLER Family [address] [place], [place] [phone] Aydee Burton, Assigned PCP 04/28/21 BOAT HOIST OPERATOR ELECTRIC ORGAN ASSEMBLER [address] [place], [place] [phone] Louisa Hood, Assigned Neuroscience 07/11/21 BOAT HOIST OPERATOR ELECTRIC ORGAN ASSEMBLER Provider 500 [place] [address] [place], Assigned Sleep 08/01/21 Angel Turcios, Provider [address] [place], [place] [phone] Lesly Celaya MD Assigned Surgical 09/05/21 [address] [place] [place] [address] Tawana Patel [facility] 09/30/21 Worker Ramses Mcpherson Assigned OBGYN 11/07/21 MD Onesimo Provider [address] [place], [place] [phone] Obdulio Barrera MD Critical Care 01/24/[address] [address] Obdulio Barrera, Assigned Pulmonology 02/06/22 Provider [address] 8659[address] Lesvia Stanley EP Cardiac Rehabilitation 03/03/22 03/03/23 [facility] Therapist [address] [address] Marilia Deluna, PhD Assigned Behavioral 02/20/22 [address] [facility] Health Provider [facility] [place] [address] Niyah Decker, [facility] Pharmacist Pharmacist 03/07/22 420 [facility] 812 [place], [place] [address] Lesvia Stanley EP Cardiac Rehabilitation 03/17/22 03/17/23 [facility] Therapist [address] [address] Delia Avila, Pharmacist Pharmacist 06/07/22 [facility] 909 [place], [place] [address] Mago Swift, [facility] Lead Agricultural Produce Commission Agent Box Printer - 08/05/21 Clinical Leela Jarvis, [facility] Pharmacist 07/26/22 05/15/23 [address] [facility] [place] [address] Niyah Decker, [facility] Assigned MTM 08/10/22 09/16/22 420 [facility] 812 Pharmacist [place], [place] [phone] documented as of this encounter
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
--- OUTSIDE RECORDS SUMMARY | 2022-10-21 08:47 | XMS_ITS | Encounter Summary ---
:1980 Author Organization [place] Address [address] [place] [address] Care Team Providers Name Role Phone Aydee Burton ENERGY DERIVATIVES TRADER SHIRT SORTER Primary Care Provider Aydee Burton ENERGY DERIVATIVES TRADER SHIRT SORTER Unavailable [phone] Louisa Hood ENERGY DERIVATIVES TRADER SHIRT SORTER Unavailable [phone] Angel Hannah MD Unavailable Lesly Celaya MD Unavailable Tawana Patel MA Unavailable Unavailable Ramses Mcpherson MD Unavailable [phone] Obdulio Barrera MD Unavailable [phone] Obdulio Barrera MD Unavailable [phone] Lesvia Stanley EP Unavailable Marilia Deluna PhD Unavailable Niyah Decker [facility] Unavailable Lesvia Stanley Unavailable Delia Avila [facility] Unavailable [phone] JamisonMago [facility] Unavailable Leela Jarvis [facility] Unavailable Niyah Decker [facility] Unavailable Reason for Visit Reason Onset Date Comments Refill Request 09/06/2022 pregabalin (LYRICA) 50 MG capsule Encounter Details Date Type Department Care Team Description 09/06/2022 Refill [facility] Julio Vargas MD Refill Request Management [facility] [id number] [place] [address] (pregabalin (LYRICA) 50 [address] [place] [address] MG capsule) [address] [place] [address] [phone] Social History Tobacco Use Types Packs/Day Years [...] How often do you attend anabaptist or buddhist services? 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/2021 7:53 PM RN REHABILITATION COVID-19 Exposure Response Date Recorded In the last 10 days, have you been in contact with No / Unsu re 09/05/2022 3:01 PM CDT someone who was confirmed or suspected to have Coronavirus/COVID-19? documented as of this encounter Miscellaneous Notes Telephone Encounter - Claeb Dewey MD - 09/06/2022 1:00 PM CDT Script Eprescribed to pharmacy [place] Prescription Monitoring Program checked Signed Prescriptions: Disp [...] Next appt scheduled for none E-prescribe to: [facility] [address] [place] [id number] [address] Will facilitate refill. documented in this encounter Plan of Treatment Upcoming Encounters Date Type Specialty Care Team Description 10/21/2022 Office Visit Pulmonology Obdulio Barrera MD [address] [address] (Wo rk) 10/25/2022 PRE VISIT ENT Charo Burton MD Previsit [address] [place] [address] (Wo rk) 10/25/2022 Office Visit ENT Charo Burton MD 909 [place], [place] [address] (Wo rk) 10/25/2022 Office Visit ENT Provider, Jeannette Ent Dysphonia Phosphoric Acid Operator 10/25/2022 Virtual Visit Pain & Palliative [place] [address] [place], [place] [address] 10/28/2022 Appointment Speech Therapy Anabel Chew, NET DEVELOPER PROGRAMMER [address] [phone] (Wo rk) 11/17/2022 Appointment Speech Therapy Anabel Chew, NET DEVELOPER PROGRAMMER [address] [address]455 (Wo rk) 12/01/2022 Office Visit Pain & [place] [address] [place], [place] [address] (Wo rk) 12/23/2022 Office Visit Neurology Colby Yeung MD [address] [place], [place] [address] (Wo rk) documented as of this encounter Goals Goal Patient Goal Associated Recent Patient-Stated? Author Type Problems Progress Attend Speciality Care Plan Establish Care 50% No Randal rn, Appointments (10/10/2022 Mago Murray, (BANDER HAND, 9:29 AM RN REHABILITATION) [facility] Psychiatry, Counseling, and the Sleep Clinic) Note: Formatting of this note is differe nt from the original. Barriers: Appointment availability. Strengths: Recognition of need, Care Skip Locator rdination involvement. Patient expressed understanding of goal: [...] Lesly Celaya MD [facility] To address painful lumps in my abdomin [...] No Mago Swift well-managed. self-managed 9:29 AM RN REHABILITATION) M, MARISA W Note: Formatting of this [...] documented as of this encounter Care Teams Electronic Resources Librarian Relationship Specialty Start Date End Date Aydee Burton, PCP - General Nurse Practitioner - 05/17/21 ENERGY DERIVATIVES TRADER SHIRT SORTER Family [address] [place] [address] Aydee Burton, Assigned PCP 04/28/21 ENERGY DERIVATIVES TRADER SHIRT SORTER [address] [place] [address] Louisa Hood, Assigned Neuroscience 07/11/21 ENERGY DERIVATIVES TRADER SHIRT SORTER Provider [address] [place] [address] [place], Assigned Sleep 08/01/21 Angel Turcios, Provider [address] [place], [place] [phone] Lesly Celaya MD Assigned Surgical 09/05/21 [address] [facility] Provider [place], [place] [phone] Tawana Patel [facility] 09/30/21 Worker Ramses Mcpherson Assigned OBGYN 11/07/21 MD Onesimo Provider [address] [place], [place] [phone] Obdulio Barrera MD Critical Care 01/24/[address] [place] [phone] Obdulio Brarera, Assigned Pulmonology 02/06/[address] [place] [phone] Lesvia Stanley EP Cardiac Rehabilitation 03/03/22 03/03/23 [facility] Therapist [address] [place] [id number] Marilia Deluna, PhD Assigned Behavioral 02/20/22 [address] [facility] [place] [place] [address] Niyah Decker, [facility] Pharmacist Pharmacist 03/07/22 420 [facility] 812 [place], [place] [address] Lesvia Stanley EP Cardiac Rehabilitation 03/17/22 03/17/23 [facility] Therapist [address] [place] [place] [address] Delia Avila, Pharmacist Pharmacist 06/07/22 [facility] [address] [place], [place] [address] Mago Swift, [facility] Lead Bessemer Converter Operator River Driver - 08/05/21 Clinical Leela Jarvis [facility] Pharmacist 07/26/22 05/15/[address] [facility] [address] [place] [phone] Niyah Decker, [facility] Assigned MTM 08/10/22 09/16/22 420 [facility] 812 Pharmacist [place], [place] [address] documented as of this encounter
--- OUTSIDE RECORDS SUMMARY | 2022-10-21 08:47 | XMS_ITS | Encounter Summary ---
:1980 Author Organization [place] Address [address] [place] [address] Care Team Providers Name Role Phone Aydee Burton SALES SUPPORT ADMINISTRATOR BUDGET CONSULTANT Primary Care Provider Aydee Burton SALES SUPPORT ADMINISTRATOR BUDGET CONSULTANT Unavailable [phone] Louisa Hood SALES SUPPORT ADMINISTRATOR BUDGET CONSULTANT Unavailable [phone] Angel Hannah MD Unavailable Lesly Celaya MD Unavailable Tawana Patel MA Unavailable Unavailable Ramses Mcpherson MD Unavailable [phone] Obdulio Barrera MD Unavailable [phone] Obdulio Barrera MD Unavailable [phone] Lesvia Stanley EP Unavailable Marilia Deluna PhD Unavailable Niyah Decker [facility] Unavailable Lesvia Stanley Unavailable AustinOhDelia Mel [facility] Unavailable [phone] JamisonMago [facility] Unavailable Leela Jarvis [facility] Unavailable Niyah Decker [facility] Unavailable Encounter Details Date Type [...] How often do you attend rastafari or adventist services? 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/2021 7:53 PM SOFTWARE SALES COVID-19 Exposure Response Date Recorded In the last 10 days, have you been in contact with No / Unsu re 09/02/2022 2:09 PM CDT someone who was confirmed or suspected to have Coronavirus/COVID-19? documented as of this encounter Plan of Treatment Upcoming Encounters Date Type Specialty Care Team Description 10/21/2022 Office Visit Pulmonology Obdulio Barrera MD 420 [facility] [address] [place], [place] [address] (Wo rk) 10/25/2022 PRE VISIT ENT Charo Burton MD Previsit [address] [place] [address] (Wo rk) 10/25/2022 Office Visit ENT Charo Burton MD [address] [place] [address] (Wo rk) 10/25/2022 Office Visit ENT Provider, Ent Dysphonia Covered Buckle Assembler 10/25/2022 Virtual Visit Pain & Palliative [place] [address] [place], [place] [address] 10/28/2022 Appointment Speech Therapy Anabel Chew, DEVULCANIZER CHARGER [address] [phone] (Wo rk) 11/17/2022 Appointment Speech Therapy Anabel Chew, DEVULCANIZER CHARGER [address] [phone] (Wo rk) 12/01/2022 Office Visit Pain & [place] [address] [place], [place] [address] (Wo rk) 12/23/2022 Office Visit Neurology Colby Yeung MD [address] [place] [address] (Wo rk) documented as of this encounter Goals Goal Patient Goal Associated Recent Patient-Stated? Author Type Problems Progress Attend Speciality Care Plan Establish Care 50% No Randal rn, Appointments (10/10/2022 Mago Murray, (CLINICAL EXERCISE PHYSIOLOGIST, 9:29 AM SOFTWARE SALES) [facility] Psychiatry, Counseling, and the Sleep Clinic) Note: Formatting of this note is differe nt from the original. Barriers: Appointment availability. Strengths: Recognition of need, Care Cloth Printer rdination involvement. Patient expressed understanding of goal: [...] on: 08/16/2022 9:45 AM Lesly Celaya MD [facility] To address painful lumps in my abdomin [...] No Mago Swift well-managed. self-managed 9:29 AM SOFTWARE SALES) M, MARISA W Note: Formatting of this [...] documented as of this encounter Care Teams Chainsaw Mechanic Relationship Specialty Start Date End Date Aydee Burton, PCP - General Nurse Practitioner - 05/17/21 SALES SUPPORT ADMINISTRATOR BUDGET CONSULTANT Family [address] [place], [place] [phone] Aydee Burton, Assigned PCP 04/28/21 SALES SUPPORT ADMINISTRATOR BUDGET CONSULTANT [address] [place], [place] [phone] Louisa Hood, Assigned Neuroscience 07/11/21 SALES SUPPORT ADMINISTRATOR BUDGET CONSULTANT Provider [address] [place], [place] [phone] [place], Assigned Sleep 08/01/21 Angel Turcios, Provider [address] [place], [place] [phone] Lesly Celaya MD Assigned Surgical 09/05/21 [address] [place] [place] [address] Tawana Patel MA [facility] 09/30/21 Worker Ramses Mcpherson Assigned OBGYN 11/07/21 MD Onesimo Provider [address] [place] [address] Obdulio Barrera MD Critical Care 01/24/22 420 [facility] [address] [place], [place] [phone] Obdulio Barrera, Assigned Pulmonology 02/06/22 MD Provider 420 [facility] [address] [place], [place] [address] Lesvia Stanley, GHADA Cardiac Rehabilitation 03/03/22 03/03/23 [facility] Therapist [address] [id number] Marilia Deluna, PhD Assigned Behavioral 02/20/22 [address] [facility] [place] [place] [address] Niyah Decker, [facility] Pharmacist Pharmacist 03/07/[address] [place] [address] [address] [place], [place] [address] Lesvia [place], GHADA Cardiac Rehabilitation 03/17/22 03/17/23 [facility] Therapist [address] [address] Delia Avila, Pharmacist Pharmacist 06/07/22 [facility] [address] [place] [phone] Mago Swift, [facility] Lead Operations Support Professionals Senior Bioinformatics Specialist - 08/05/21 Clinical Leela Jarvis [facility] Pharmacist 07/26/22 05/15/[address] [place] [address] [address] [place] [phone] Niyah Decker, [facility] Assigned MTM 08/10/22 09/16/22 420 [facility] 812 Pharmacist [place], [place] [address] documented as of this encounter
--- OUTSIDE RECORDS SUMMARY | 2022-10-21 08:47 | XMS_ITS | Encounter Summary ---
:1980 Author Organization [place] Address [address] [place] [address] Care Team Providers Name Role Phone Aydee Burton WINDOW SHADE RING COVERER SETTER UP Primary Care Provider Aydee Burton WINDOW SHADE RING COVERER SETTER UP Unavailable [phone] Louisa Hood WINDOW SHADE RING COVERER SETTER UP Unavailable [phone] Angel Hannah MD Unavailable Lesly Celaya MD Unavailable Tawana Patel MA Unavailable Unavailable Ramses Mcpherson MD Unavailable [phone] Obdulio Barrera MD Unavailable [phone] Obdulio Barrera MD Unavailable [phone] Lesvia Stanley EP Unavailable Marilia Deluna PhD Unavailable Niyah Decker [facility] Unavailable Lesvia Stanley Unavailable AustinOhDelia Mel [facility] Unavailable [phone] JamisonMago [facility] Unavailable Leela Jarvis [facility] Unavailable Niyah Decker [facility] Unavailable Encounter Details Date Type [...] How often do you attend catholic or scientology services? 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/2021 7:53 PM ODD JOB LABORER COVID-19 Exposure Response Date Recorded In the last 10 days, have you been in contact with No / Unsu re 09/12/2022 2:14 PM CDT someone who was confirmed or suspected to have Coronavirus/COVID-19? documented as of this encounter Plan of Treatment Upcoming Encounters Date Type Specialty Care Team Description 10/21/2022 Office Visit Pulmonology Obdulio Barrera MD 420 [facility] 276 [place], [place] [address] (Wo rk) 10/25/2022 PRE VISIT ENT Charo Burton MD Previsit [address] [place] [address] (Wo rk) 10/25/2022 Office Visit ENT Charo Burton MD [address] [place] [address] (Wo rk) 10/25/2022 Office Visit ENT Provider, Ent Dysphonia Credit Union Teller 10/25/2022 Virtual Visit Pain & Palliative Care [place] [address] [place], [place] [address] 10/28/2022 Appointment Speech Therapy Anabel Chew, FOOD CONSULTANT [address] [address] (Wo rk) 11/17/2022 Appointment Speech Therapy Anabel Chew, FOOD CONSULTANT [address] [address]8035 (Wo rk) 12/01/2022 Office Visit Pain & [place] [address] [place], [place] [address] (Wo rk) 12/23/2022 Office Visit Neurology Colby Yeung MD [address] [place] [address] (Wo rk) documented as of this encounter Goals Goal Patient Goal Associated Recent Patient-Stated? Author Type Problems Progress Attend Speciality Care Plan Establish Care 50% No Randal rn, Appointments (10/10/2022 Mago Murray, (MERCHANDISE FLOW TEAM MEMBER, 9:29 AM ODD JOB LABORER) [facility] Psychiatry, Counseling, and the Sleep Clinic) Note: Formatting of this note is differe nt from the original. Barriers: Appointment availability. Strengths: Recognition of need, Care Administrative Support Coordinator rdination involvement. Patient expressed understanding of goal: [...] on: 08/16/2022 9:45 AM Lesly Celaya MD [facility] [place] To address painful lumps in my abdomin [...] No Mago Swift well-managed. self-managed 9:29 AM ODD JOB LABORER) M, MARISA W Note: Formatting of this [...] documented as of this encounter Care Teams Intern Brand Relationship Specialty Start Date End Date Aydee Burton, PCP - General Nurse Practitioner - 05/17/21 WINDOW SHADE RING COVERER SETTER UP Family [address] [place], [place] [phone] Aydee Burton, Assigned PCP 04/28/21 WINDOW SHADE RING COVERER SETTER UP [address] [place], [place] [phone] Louisa Hood, Assigned Neuroscience 07/11/21 WINDOW SHADE RING COVERER SETTER UP Provider [address] [place], [place] [phone] [place], Assigned Sleep 08/01/21 Angel Turcios, Provider [address] [place], [place] [phone] Lesly Celaya MD Assigned Surgical 09/05/21 [address] [place] [address] Tawana Patel MA [facility] 09/30/21 Worker Ramses Mcpherson Assigned OBGYN 11/07/21 MD Onesimo Provider [address] [place] [address] Obdulio Barrera MD Critical Care 01/24/22 420 [facility] 276 [place], [place] [phone] Obdulio Barrera, Assigned Pulmonology 02/06/22 MD Provider 420 [facility] [address] [place], [place] [address] Lesvia Stanley, GHADA Cardiac Rehabilitation 03/03/22 03/03/23 [facility] Therapist [address] [id number] Marilia Deluna, PhD Assigned Behavioral 02/20/22 [address] [facility] [place] [address] Niyah Decker, [facility] Pharmacist Pharmacist 03/07/[address] [place] [address] 812 [place], [place] [address] Lesvia Stanley, GHADA Cardiac Rehabilitation 03/17/22 03/17/23 [facility] Therapist [address] [address] Delia Avila, Pharmacist Pharmacist 06/07/22 [facility] [address] [place] [phone] Mago Swift, [facility] Lead Fittings Finisher Punchboard Assembler - 08/05/21 Clinical Leela Jarvis [facility] Pharmacist 07/26/22 05/15/[address] [place] [address] [address] [place] [phone] Niyah Decker, [facility] Assigned MTM 08/10/22 09/16/22 420 [facility] 812 Pharmacist [place], [place] [address] documented as of this encounter
--- OUTSIDE RECORDS SUMMARY | 2022-10-21 08:47 | XMS_ITS | Encounter Summary ---
:1980 Author Organization [place] Address [address] [place] [address] Care Team Providers Name Role Phone Aydee Burton EVP BANQUET FOOD SERVER Primary Care Provider Aydee Burton EVP BANQUET FOOD SERVER Unavailable [phone] Louisa Hood EVP BANQUET FOOD SERVER Unavailable [phone] Angel Hannah MD Unavailable Lesly Celaya MD Unavailable Tawana Patel MA Unavailable Unavailable Ramses Mcpherson MD Unavailable Obdulio Barrera MD Unavailable [phone] Obdulio Barrera MD Unavailable [phone] Lesvia Stanley EP Unavailable Marilia Deluna PhD Unavailable Niyah Decker [facility] Unavailable Lesvia Stanley Unavailable Delia Avila Mel [facility] Unavailable [phone] JamisonKikiMago M [facility] Unavailable Leela Jarvis [facility] Unavailable Niyah Decker [facility] Unavailable Reason for Visit Reason Comments Letter for School/Work Encounter Details Date Type Department Care Team Description 09/02/2022 Office Visit [facility] Aydee Burton Esophageal yeast infection (H) (Primary Dx); Clinic [place] VanessaELADIO BANQUET FOOD SERVER Laryngitis [address] [address] [phone] Social History Tobacco Use Types Packs/Day Years [...] How often do you attend amish or temple services? Never 08/05/2021 Do you [...] at Date Recorded Female 11/09/2021 7:53 PM SPECIFICATION WRITER COVID-19 Exposure Response Date Recorded In the last 10 days, have you been in contact with No / Unsu re 09/27/2022 8:03 AM SPECIFICATION WRITER someone who was confirmed or suspected to [...] 2:28 PM CDT documented in this encounter Progress Notes Aydee Burton APRN CNP - 09/02/2022 2:30 PM CDT Assessment & Plan Esophageal yeast infection (H) Laryngitis Unable to restrict hours.Pulmonary may be able to weigh in on her diagnosis and if it should restrict her hours. Would recommend reaching out to HR about reduction of hours. Marta verbalizes understanding of plan of care and is in agreement. Return in about 4 weeks (around 09/30/2022) for Recheck. Aydee Burton APRN CNP [facility] Marta is a 42 year old, presenting for the following health issues: Letter for School/Work History of Present Illness Reason for visit: Note possible restrictions She eats 0-1 servings of fruits and vegetables daily.She consumes 2 sweetened beverage(s) daily.She exercises with enough effort to increase her heart rate 9 or less minutes per day. She exercises withenough effort to increase her heart rate 3 or less days per week. She is taking medications regularly. Today's PHQ-9 PHQ-9 Total Score: 17 PHQ-9 Q9 Thoughts of better off /self-harm past 2 weeks : Not at all How difficult have these problems made it for you to do your work, take care of things at home, or get along with other people: Very difficult Asthma Follow-Up Was ACT completed today? Yes ACT Total Scores 09/02/2022 ACT TOTAL SCORE (Goal Greater than or Equal to 20) 8 In the past 12 months, how many times did you visit the emergency room for your asthma without beingadmitted to the hospital? 2 In the past 12 months, how many times were you hospitalized overnight because of your asthma? 0 ?? How many days per week do you miss taking your asthma controller medication? 0 ?? Please describe any recent triggers for your asthma: Walking, talking, chemiclas. ?? Have you had any Emergency Room Visits, Urgent Care Visits, or Hospital Admissions since your last office visit? No Has appt with ENT 10/2022 Has appt for vocal cords - 09/12/2022 sawmill or timber yard worker will only continue to work with her if she has note to work 20 hours less Review of Systems Constitutional, HEENT, cardiovascular, pulmonary, GI, , musculoskeletal, neuro, skin, endocrine and psych systems are negative, except as otherwise noted in the HPI. Objective BP 126/81 (BP Location: Right arm, Patient Position: Chair, Cuff Size: Adult Regular) Pulse 90 Temp 97.3 ??F (36.3 ??C) (Tympanic) Ht 1.651 m (5' 5) Wt 94.8 kg (209 lb) LMP 12/11/2021 (ExactDate) SpO2 97% BMI 34.78 kg/m?? Body mass index is 34.78 kg/m??. Physical Exam GENERAL: healthy, alert and no distress RESP: lungs clear to auscultation - no rales, rhonchi or wheezes CV: regular rate and rhythm, normal S1 S2, no S3 or S4, no murmur, click or rub, no peripheral edemaand peripheral pulses strong ABDOMEN: soft, nontender, no hepatosplenomegaly, no masses and bowel sounds normal PSYCH: mentation appears normal, affect normal/bright IFICATION WRITER documented in this encounter Plan of Treatment Upcoming Encounters Date Type Specialty Care Team Description 10/21/2022 Office Visit Pulmonology Obdulio Barrera MD [address] [facility] [address] [place] [address] (Wo rk) 10/25/2022 PRE VISIT ENT Charo Burton MD Previsit [address] [place], [place] [phone] (Wo rk) 10/25/2022 Office Visit ENT Charo Burton MD [address] [place] [address] (Wo rk) 10/25/2022 Office Visit ENT Provider, Jeannette Ent Dysphonia Radiographer Technologist 10/25/2022 Virtual Visit Pain & [place]iative [place] [address] [place], [place] [address] 10/28/2022 Appointment Speech Therapy Anabel Chew, ROLL CHANGER [address] [place], [place] [phone] (Wo rk) 11/17/2022 Appointment Speech Therapy Anabel Chew, ROLL CHANGER [address] [place], [place] [address] (Wo rk) 12/01/2022 Office Visit Pain & [place] [address] [place], [place] [address] (Wo rk) 12/23/2022 Office Visit Neurology Colby Yeung MD [address] [place] [address] (Wo rk) documented as of this encounter Goals Goal Patient Goal Associated Recent Patient-Stated? Author Type Problems Progress Attend Speciality Care Plan Establish Care 50% No Randal rn, Appointments (10/10/2022 Mago Murray, (MONITORING ENGINEER, 9:29 AM SPECIFICATION WRITER) [facility] Psychiatry, Counseling, and the Sleep Clinic) Note: Formatting of this note is differe nt from the original. Barriers: Appointment availability. Strengths: Recognition of need, Care Rigging Loft Mechanic rdination involvement. Patient expressed understanding of [...] Celaya MD [facility] [place] To address painful lumps in my abdomin [...] (10/10/2022 Mago Prieto well-managed. self-managed 9:29 AM SPECIFICATION WRITER) M, MARISA W Note: Formatting of this [...] Acute laryngitis, without mention of obs truction documented in this encounter Additional Health Concerns Problem Noted Date Establish Care 07/05/2022 Chronic Pain is not self-managed 07/05/2022 Assessment Noted Time PHQ-9 Depression Total Score: 17 09/02/2022 2:19 PM CD T documented as of this encounter Care Teams Gauge Maker Relationship Specialty Start Date End Date Aydee Burton, PCP - General Nurse Practitioner - 05/17/21 EVP BANQUET FOOD SERVER Family [address] [place], [place] [phone] Aydee Burton, Assigned PCP 04/28/21 EVP BANQUET FOOD SERVER [address] [place], [place] [phone] Louisa Hood, Assigned Neuroscience 07/11/21 EVP BANQUET FOOD SERVER Provider [address] [place], [place] [phone] [place], Assigned Sleep 08/01/21 Angel Tucrios, Provider [address] [place], [place] [phone] Lesly Celaya MD Assigned Surgical 09/05/21 [address] Provider [place], [place] [phone] Tawana Patel MA [facility] 09/30/21 Worker Ramses Mcpherson Assigned OBGYN 11/07/21 MD Onesimo Provider [address] [place], [place] [phone] Obdulio Barrera MD Critical Care 01/24/22 [address] [facility] [address] [place] [address] Obdulio Barrera, Assigned Pulmonology 02/06/22 MD Provider [address] [facility] [address] [place] [address] Lesvia Stanley, EP Cardiac Rehabilitation 03/03/22 03/03/23 [facility] Therapist [address] [place] [address] Marilia Deluna, PhD Assigned Behavioral 02/20/22 [address] [facility] [place] [address] Niyah Decker, [facility] Pharmacist Pharmacist 03/07/22 [address] [facility] [address] [place], [place] [address] Lesvia Stanley, EP Cardiac Rehabilitation 03/17/22 03/17/23 [facility] Therapist [address] [place] [address] Delia Avila, Pharmacist Pharmacist 06/07/22 [facility] [address] [place], [place] [phone] Mago Swift [facility] Lead Anesthesia Resident Mutual Fund Accountant - 08/05/21 Clinical Leela Jarvis [facility] Pharmacist 07/26/22 05/15/[address] [facility] [address] [address] [place] [phone] Niyah Decker, [facility] Assigned MTM 08/10/22 09/16/22 [address] [facility] [address] Pharmacist [place], [place] [phone] documented as of this encounter
--- OUTSIDE RECORDS SUMMARY | 2022-10-21 08:47 | XMS_ITS | Encounter Summary ---
:1980 Author Organization [place] Address [address] [place] [address] Care Team Providers Name Role Phone Aydee Burton GROUND SUPPORT EQUIPMENT ASSEMBLER POLISHER IMPLANT Primary Care Provider Aydee Burton GROUND SUPPORT EQUIPMENT ASSEMBLER POLISHER IMPLANT Unavailable [phone] Louisa Hood GROUND SUPPORT EQUIPMENT ASSEMBLER POLISHER IMPLANT Unavailable [phone] Angel Hannah MD Unavailable Lesly Celaya MD Unavailable Tawana Patel MA Unavailable Unavailable Ramses Mcpherson MD Unavailable [phone] Obdulio Barrera MD Unavailable [phone] Obdulio Barrera MD Unavailable [phone] Lesvia Stanley EP Unavailable Marilia Deluna PhD Unavailable Niyah Decker [facility] Unavailable Lesvia Stanley Unavailable AustinOhDelia Mel [facility] Unavailable [phone] JamisonMago [facility] Unavailable Simona Leela [facility] Unavailable LoriNiyah grossman [facility] Unavailable Reason for Referral Rehab Therapy Integrated Services (Routine: Next available opening) - Authorized Specialty Diagnoses / Procedures Referred By Contact Refer red To Contact Diagnoses Severe persistent asthma without complication Vocal cord dysfunction Obdulio Barrera [facility] [address] [place] [phone] [place] [id number] Referral ID Status Reason Start Date Expiration Date Visits V isits Requested Authorized [id number] Authorized 09/05/2022 11/12/2022 365 365 Reason for Visit Rehab Therapy Integrated Services (Routine: Next available opening) - Authorized Specialty Diagnoses / Procedures Referred By Contact Refer red To Contact Diagnoses Severe persistent asthma without complication Vocal cord dysfunction Obdulio Barrera [facility] [address] [place] [phone] [place] [address] Referral ID Status Reason Start Date Expiration Date Visits V isits Requested Authorized [id number] Authorized 09/05/2022 11/12/2022 365 365 Encounter Details Date Type Department Care Team Description 09/12/2022 [facility] Obdulio Jason MD [address] [address] Vocal cord dysfunction (Primary Dx); Encounter Rehabilitation Anabel Chew, INSTRUMENT MAKER [address] [phone] Severe persistent asthma without complic ation Services [address] [place] [address] Social History Tobacco Use Types Packs/Day Years [...] er 08/05/2021 How often do you attend yarsani or yazdanism services? Never 08/05/2021 Do you belong to any clubs or organizations such as yarsani N o 08/05/2021 groups, unions, fraternal or [...] at Date Recorded Female 11/09/2021 7:53 PM STUDENT SUCCESS ADVISOR COVID-19 Exposure Response Date Recorded In [...] of breath) documented as of this encounter Progress Notes Anabel Chew, INSTRUMENT MAKER - 09/12/2022 11:59 PM CDT Images from the original note were not included. Speech-Language Pathology Department VOICE, BREATHING, AND COUGH EVALUATION [facility] Aj [place]more 09/12/22 6445 General Information Type Of Visit Initial Start [...] with plan of care Yes Patient Education INSTRUMENT MAKER provided education regarding evaluation findings and proposed POC. Therapy initiated today. Educational Assessment Barriers to Learning No barriers Preferred Learning Style Listening;Reading;Demonstration;Pictures / Video Voice Goals Voice Goals 1;2;3;4 Voice Goal 1 Goal Identifier Breathing Goal Description Patient will learn, implement, and demonstrate optimal laryngeal respiratory mechanics at rest and in light exertion (e.g. walking) with 90% accy given min cues from INSTRUMENT MAKER, in order to promote improved breathing comfort and reduced vocal cord dysfunction. Target Date 12/11/22 Voice Goal 2 Goal Identifier Voice quality Goal Description In a 20-minute speech task, patient will demonstrate roughness, breathiness, and strain that do not exceed a level of 3 out of 10, 80% of the time by INSTRUMENT MAKER judgment, so that patient is able to meet her voice quality demands. Target Date 12/11/22 Voice Goal 3 Goal Identifier Cough/Hygiene Goal Description Patient will learn, demonstrate, and implement use of at least 3 vocal hygiene strategies (e.g. hydration, alternative cough techniques, breathing techniques to arrest cough, management of triggers), given no-min cues from INSTRUMENT MAKER to promote reduced laryngeal irritation and chronic cough. Target Date 12/11/22 Voice Goal 4 Goal Identifier Massage Goal Description Patient will learn, demonstrate, and implement use of circumlaryngeal massage exercises independently 1-2x per day,in order to promote reduced laryngeal discomfort, tension, and hypersensitivity. Target Date 12/11/22 Total Session Time Voice Minutes (63009) 30 Total Evaluation Time 45 Therapy Certification Certification date from 09/12/22 Certification date to 12/11/22 Medical Diagnosis Vocal cord dysfunction Thank you for the referral of this patient. Anabel Chew B.A. (crow), M.A., [facility]-INSTRUMENT MAKER Speech-Language Pathologist [facility] Certificate of Vocology [facility] [phone] Anabel Chew, INSTRUMENT MAKER - 09/12/2022 11:59 PM CDT Images from the original note were not included. [facility] OUTPATIENT SPEECH LANGUAGE PATHOLOGY VOICE EVALUATION PLAN OF TREATMENT FOR OUTPATIENT REHABILITATION (COMPLETE FOR INITIAL CLAIMS ONLY) Patient's Last Name, First Name, M.I. Date of : 1980 Marta Hill A Provider???s Name: [facility] Onset Date: 07/13/2022 (order date) Start of [...] with 90% accy given min cues from INSTRUMENT MAKER, in order topromote improved breathing comfort and reduced vocal cord dysfunction. Target Date: 12/11/22 2. Goal Identifier: Voice quality Goal Description: In a 20-minute speech task, patient will demonstrate roughness, breathiness, and strain that do not exceed a level of 3 out of 10, 80% of the time by INSTRUMENT MAKER judgment, so that patient isable to meet her voice quality demands. Target Date: 12/11/22 3. Goal Identifier: Cough/Hygiene Goal Description: Patient will learn, demonstrate, and implement use of at least 3 vocal hygiene strategies (e.g. hydration, alternative cough techniques, breathing techniques to arrest cough, management of triggers), given no-min cues from INSTRUMENT MAKER to promote reduced laryngeal irritation and chronic cough. Target Date: 12/11/22 4. Goal Identifier: Massage Goal Description: Patient will learn, demonstrate, and implement use of circumlaryngeal massage exercises independently 1-2x per day,in order to promote reduced laryngeal discomfort, tension, and hypersensitivity. Target Date: 12/11/22 Frequency and Duration: 1x/week for 6 weeks with 2-3 monthly follow-ups pending progress Anabel Chew, INSTRUMENT MAKER I CERTIFY THE NEED FOR THESE SERVICES FURNISHED UNDER THIS PLAN OF TREATMENT AND WHILE UNDER MY CARE (Physician co-signature of this document indicates review and certification of the therapy plan). Certification Date From: 09/12/22 Certification Date To: 12/11/22 Referring Provider: Obdulio Barrera MD Initial Assessment See [facility] Evaluation Start of Care Associated attestation - Obdulio Barrera MD - 09/14/2022 7:57 AM CDT Attestation: Physician Attestation I agree with the information in this note. Obdulio Barrera MD documented in this encounter Plan of Treatment Upcoming Encounters Date Type Specialty Care Team Description 10/21/2022 Office Visit Pulmonology Obdulio Barrera MD [address] [facility] [address] [place] [address] (Wo rk) 10/25/2022 PRE VISIT ENT Charo Burton MD Previsit [address] [place] [address] (Wo rk) 10/25/2022 Office Visit Charo Carter MD [address] [place] [phone] (Wo rk) 10/25/2022 Office Visit ENT Provider, Jeannette Ent Dysphonia Milk Tanker Driver 10/25/2022 Virtual Visit Pain & [place] [address] [place], [place] [address] 10/28/2022 Appointment Speech Therapy Anabel Chew, INSTRUMENT MAKER [address] [place] [address] (Wo rk) 11/17/2022 Appointment Speech Therapy Anabel Chew, INSTRUMENT MAKER [address] [place], [place] [address] (Wo rk) 12/01/2022 Office Visit Pain & [place] [address] [place], [place] [address] (Wo rk) 12/23/2022 Office Visit Neurology Colby Yeung MD [address] [place], [place] [address] (Wo rk) Scheduled Referrals Name Type Priority Associated Diagnoses Order S chedule Speech Therapy Referral Routine: Next Severe persistent 1 Occur rences Referral available opening asthma without starting 09/12/2022 complication until 09/12/2022 Vocal cord dysfunction documented as of this encounter Goals Goal Patient Goal Associated Recent Patient-Stated? Author Type Problems Progress Attend Speciality Care Plan Establish Care 50% No Karene rn, Appointments (10/10/2022 Mago Murray, (PER DIEM PHYSICAL THERAPIST, 9:29 AM STUDENT SUCCESS ADVISOR) [facility] Psychiatry, Counseling, and the Sleep Clinic) Note: Formatting of this note is differe nt from the original. Barriers: Appointment availability. Strengths: Recognition of need, Care Primer Inserting Machine Operator rdination involvement. Patient expressed understanding [...] Celaya MD [facility] Surgery [facility] To address painful lumps in [...] Chronic Pain is not 40% (10/10/2022 No JamisonMago well-managed. self-managed 9:29 AM STUDENT SUCCESS ADVISOR) M, LICS W Note: Formatting of this [...] cords Severe persistent asthma without complic ation documented in this encounter Additional Health Concerns Problem Noted Date Establish Care 07/05/2022 Chronic Pain is not self-managed 07/05/2022 Assessment Noted Time PHQ-9 Depression Total Score: 17 09/02/2022 2:19 PM CD T documented as of this encounter Care Teams Electric Deicer Inspector Relationship Specialty Start Date End Date Aydee Burton, PCP - General Nurse Practitioner - 05/17/21 GROUND SUPPORT EQUIPMENT ASSEMBLER [place] Family [address] [place], [place] [phone] Aydee Burton, Assigned PCP 04/28/21 GROUND SUPPORT EQUIPMENT ASSEMBLER [facility] [address] [place], [place] [address] Louisa Hood, Assigned Neuroscience 07/11/21 GROUND SUPPORT EQUIPMENT ASSEMBLER POLISHER IMPLANT Provider [address] [place] [address] [place], Assigned Sleep 08/01/21 Angel Turcios, Provider [address] [place] [address] Lesly Celaya MD Assigned Surgical 09/05/21 [address] [place] [address] Tawana Patel MA [facility] 09/30/21 Worker Ramses Mcpherson Assigned OBGYN 11/07/21 MD Onesimo Provider [address] [place] [address] Obdulio Barrera MD Critical Care 01/24/22 [address] [facility] [address] [place] [address] Obdulio Barrera, Assigned Pulmonology 02/06/22 Provider [address] [facility] [address] [place], [place] [phone] Lesvia Stanley EP Cardiac Rehabilitation 03/03/22 03/03/23 [facility] Therapist [address] [facility] [facility] [address] [place], [place] [address] Marilia Deluna, PhD Assigned Behavioral 02/20/22 [address] [facility] Provider [place], [place] [address] Niyah Decker, [facility] Pharmacist Pharmacist 03/07/22 420 [facility] 8[address] [place], [place] [address] Lesvia Stanley, GHADA Cardiac Rehabilitation 03/17/22 03/17/23 [facility] Therapist [address] [place] [address] Delia Avila, Pharmacist Pharmacist 06/07/22 [facility] [address] [place] [address] Mago Swift, [facility] Lead Buzzle Buffer Water And Fire Technician - 08/05/21 Clinical Leela Jarvis, [facility] Pharmacist 07/26/22 05/15/23 [address] [facility] [place] [address] Niyah Decker, [facility] Assigned MTM 08/10/22 09/16/22 420 [facility] 812 [place] [address] documented as of this encounter
--- OUTSIDE RECORDS SUMMARY | 2022-10-21 08:47 | XMS_ITS | Encounter Summary ---
:1980 Author Organization [place] Address [address] [place] [address] Care Team Providers Name Role Phone Aydee Burton CAUSTIC STRENGTH INSPECTOR ELECTROMEDICAL EQUIPMENT TECHNICIAN Primary Care Provider Aydee Burton CAUSTIC STRENGTH INSPECTOR ELECTROMEDICAL EQUIPMENT TECHNICIAN Unavailable [phone] Louisa Hood CAUSTIC STRENGTH INSPECTOR ELECTROMEDICAL EQUIPMENT TECHNICIAN Unavailable [phone] Angel Hannah MD Unavailable Lesly Celaya MD Unavailable Tawana Patel MA Unavailable Unavailable Ramses Mcpherson MD Unavailable Obdulio Barrera MD Unavailable [phone] Obdulio Barrera MD Unavailable [phone] Lesvia Stanley EP Unavailable Marilia Deluna PhD Unavailable Niyah Decker [facility] Unavailable Lesvia Stanley Unavailable AustinOhDelia Mel [facility] Unavailable [phone] JamisonMago [facility] Unavailable Leela Jarvis [facility] Unavailable Niyah Decker [facility] Unavailable Encounter Details Date [...] How often do you attend uatsdin or religion services? Never 08/05/2021 Do you [...] at Date Recorded Female 11/09/2021 7:53 PM LUMBER STACKER OPERATOR COVID-19 Exposure Response Date Recorded In the last 10 days, have you been in contact with No / Unsu re 08/25/2022 2:42 PM CDT someone who was confirmed or suspected to have Coronavirus/COVID-19? documented as of this encounter Plan of Treatment Upcoming Encounters Date Type Specialty Care Team Description 10/21/2022 Office Visit Pulmonology Obdulio Barrera MD 420 [facility] [address] [place], [place] [address] (Wo rk) 10/25/2022 PRE VISIT ENT Charo Burton MD Previsit [address] [place] [address] (Wo rk) 10/25/2022 Office Visit ENT Charo Burton MD [address] [place] [address] (Wo rk) 10/25/2022 Office Visit ENT Provider, Ent Dysphonia Dyno Technician 10/25/2022 Virtual Visit Pain & Palliative [place] [address] [place], [place] [address] 10/28/2022 Appointment Speech Therapy Anabel Chew, SENIOR USER EXPERIENCE ARCHITECT [address] [id number] (Wo rk) 11/17/2022 Appointment Speech Therapy Anabel Chew, SENIOR USER EXPERIENCE ARCHITECT [address] [address] (Wo rk) 12/01/2022 Office Visit Pain & [place] [address] [place], [place] [address] (Wo rk) 12/23/2022 Office Visit Neurology Colby Yeung MD [address] [place] [address] (Wo rk) documented as of this encounter Goals Goal Patient Goal Associated Recent Patient-Stated? Author Type Problems Progress Attend Speciality Care Plan Establish Care 50% No Randal rn, Appointments (10/10/2022 Mago Murray, (HOME APPLIANCE INSTALLER, 9:29 AM LUMBER STACKER OPERATOR) [facility] Psychiatry, Counseling, and the Sleep Clinic) Note: Formatting of this note is differe nt from the original. Barriers: Appointment availability. Strengths: Recognition of need, Care Senior Escrow Officer rdination involvement. Patient expressed understanding of goal: [...] Lesly Celaya MD [facility] To address painful lumps in my abdomin [...] No Mago Swift well-managed. self-managed 9:29 AM LUMBER STACKER OPERATOR) M, MARISA W Note: Formatting of [...] documented as of this encounter Care Teams Christian Science Practitioner Relationship Specialty Start Date End Date Aydee Burton, PCP - General Nurse Practitioner - 05/17/21 CAUSTIC STRENGTH INSPECTOR ELECTROMEDICAL EQUIPMENT TECHNICIAN Family [address] [place], [place] [phone] Aydee Burton, Assigned PCP 04/28/21 CAUSTIC STRENGTH INSPECTOR ELECTROMEDICAL EQUIPMENT TECHNICIAN [address] [place], [place] [phone] Louisa Hood, Assigned Neuroscience 07/11/21 CAUSTIC STRENGTH INSPECTOR ELECTROMEDICAL EQUIPMENT TECHNICIAN Provider 500 [place], [place] [phone] [place], Assigned Sleep 08/01/21 Angel Turcios, Provider [address] [place], [place] [phone] Lesly Celaya MD Assigned Surgical 09/05/21 [address] [place] [address] Tawana Patel MA [facility] 09/30/21 Worker Ramses Mcpherson Assigned OBGYN 11/07/21 MD Onesimo Provider [address] [place] [address] Obdulio Barrera MD Critical Care 01/24/22 420 [facility] [address] [place], [place] [phone] Obdulio Barrera, Assigned Pulmonology 02/06/22 MD Provider [address] [facility] [address] [place], [place] [address] Lesvia Stanley, GHADA Cardiac Rehabilitation 03/03/22 03/03/23 [facility] Therapist [address] [id number] Marilia Deluna, PhD Assigned Behavioral 02/20/22 [address] [facility] [place] [address] Niyah Decker, [facility] Pharmacist Pharmacist 03/07/[address] [place] [address] 8[address] [place], [place] [address] Lesvia Stanley, GHADA Cardiac Rehabilitation 03/17/22 03/17/23 [facility] Therapist [address] [address] Delia Avila, Pharmacist Pharmacist 06/07/22 [facility] [address] [place] [phone] Mago Swift, [facility] Lead Bullet Swaging Machine Operator Jewelsmith - 08/05/21 Clinical Leela Jarvis [facility] Pharmacist 07/26/22 05/15/[address] [place] [address] [address] [place] [id number] Niyah Decker, [facility] Assigned MTM 08/10/22 09/16/22 420 [facility] 812 Pharmacist [place], [place] [address] documented as of this encounter
--- OUTSIDE RECORDS SUMMARY | 2022-10-21 08:47 | XMS_ITS | Encounter Summary ---
:1980 Author Organization [place] Address [address] [place] [address] Care Team Providers Name Role Phone Aydee Burton IT SOLUTIONS SALES CONSULTANT BANK SECRECY ACT OFFICER Primary Care Provider Aydee Burton IT SOLUTIONS SALES CONSULTANT BANK SECRECY ACT OFFICER Unavailable [phone] Louisa Hood IT SOLUTIONS SALES CONSULTANT BANK SECRECY ACT OFFICER Unavailable [phone] Angel Hannah MD Unavailable Lesly Celaya MD Unavailable Tawana Patel MA Unavailable Unavailable Ramses cMpherson MD Unavailable [phone] Obdulio Barrera MD Unavailable [phone] Obdulio Barrera MD Unavailable [phone] Lesvia Stanley EP Unavailable Marilia Deluna PhD Unavailable Niyah Decker [facility] Unavailable Lesvia Stanley Unavailable AustinOhDelia Mel [facility] Unavailable [phone] JamisonMago [facility] Unavailable Simona Leela [facility] Unavailable Niyah Decker [facility] Unavailable Reason for Visit Rehab Therapy Physical Therapy (Routine: Next available opening) - Pending Review Specialty Diagnoses / Procedures Referred By Contact Refer red To Contact Diagnoses Tension headache Cervicogenic headache Cervicalgia Colby Yeung MD [address] [place] [address] Referral ID Status Reason Start Date Expiration Date Visits V isits Requested Authorized [id number] Pending 06/30/2022 06/30/2023 1 1 Review Encounter Details Date Type Department Care Team Description 08/25/2022 Therapy Visit [facility] Melanie Reardon in (Primary Rehabilitation Services Una Murray, PT Dx) [facility] [address] [address] [address] [place] [address] (Work) [phone] Social History Tobacco Use Types Packs/Day Years [...] How often do you attend catholic or caodaism services? Never 08/05/2021 Do you [...] at Date Recorded Female 11/09/2021 7:53 PM PATTERN STORAGE CLERK COVID-19 Exposure Response Date Recorded In the last 10 days, have you been in contact with No / Unsu re 08/25/2022 2:42 PM CDT someone who was confirmed or suspected to have Coronavirus/COVID-19? documented as of this encounter Plan of Treatment Upcoming Encounters Date Type Specialty Care Team Description 10/21/2022 Office Visit Pulmonology Obdulio Barrera MD 420 [facility] [place] [address] [place] [address] (Wo rk) 10/25/2022 PRE VISIT ENT Charo Burton MD Previsit [address] [place] [phone] (Wo rk) 10/25/2022 Office Visit Charo Caretr MD [address] [place] [phone] (Wo rk) 10/25/2022 Office Visit ENT Provider, Jeannette Ent Dysphonia Economics Analyst 10/25/2022 Virtual Visit Pain & Palliative [place] [address] [place], [place] [address] 10/28/2022 Appointment Speech Therapy Anabel Chew, MARINE ELECTRONICS TECHNICIAN [facility] 516 [facility] [place] [address] [place], [place] [phone] (Wo rk) 11/17/2022 Appointment Speech Therapy Anabel Chew, MARINE ELECTRONICS TECHNICIAN [place] [address] [facility] [address] [place], [place] [address] (Wo rk) 12/01/2022 Office Visit Pain & [place] [address] [place], [place] [address] (Wo rk) 12/23/2022 Office Visit Neurology Colby Yeung MD [address] [place] [address] (Wo rk) documented as of this encounter Goals Goal Patient Goal Associated Recent Patient-Stated? Author Type Problems Progress Attend Speciality Care Plan Establish Care 50% No Randal rn, Appointments (10/10/2022 Mago Murray, (PILLOW AGENT, 9:29 AM PATTERN STORAGE CLERK) [facility] Psychiatry, Counseling, and the Sleep Clinic) Note: Formatting of this note is differe nt from the original. Barriers: Appointment availability. Strengths: Recognition of need, Care Quality Nurse rdination involvement. Patient expressed understanding of [...] Celaya MD [facility] Surgery [facility] To address painful lumps [...] No Mago Swift well-managed. self-managed 9:29 AM PATTERN STORAGE CLERK) MARISA Murray Note: Formatting of this note [...] Priority Date/Time Associated Diagnosis Comme nts ND MANUAL THERAPY, EA Routine 08/25/2022 3:18 PM CDT Neck pain 15 MIN documented in this encounter Visit Diagnoses Diagnosis Neck pain - Primary Cervicalgia documented in this encounter Additional Health Concerns Problem Noted Date Establish Care 07/05/2022 Chronic Pain is not self-managed 07/05/2022 Assessment Noted Time PHQ-9 Depression Total Score: 16 06/24/2022 9:31 AM CD T documented as of this encounter Care Teams Grinder Set Up Operator Internal Relationship Specialty Start Date End Date Aydee Burton, PCP - General Nurse Practitioner - 05/17/21 IT SOLUTIONS SALES CONSULTANT BANK SECRECY ACT OFFICER Family [address] [place], [place] [address] Aydee Burton, Assigned PCP 04/28/21 IT SOLUTIONS SALES CONSULTANT BANK SECRECY ACT OFFICER [address] [place], [place] [phone] Louisa Hood, Assigned Neuroscience 07/11/21 IT SOLUTIONS SALES CONSULTANT BANK SECRECY ACT OFFICER Provider 500 [place] [address] [place], Assigned Sleep 08/01/21 Angel Trucios, Provider [address] [place] [address] Lesly Celaya MD Assigned Surgical 09/05/21 [address] Provider [place], [place] [address] Tawana Patel MA [facility] 09/30/21 Worker Ramses Mcpherson Assigned OBGYN 11/07/21 MD Onesimo Provider [address] [place], [place] [address] Obdulio Barrera MD Critical Care 01/24/[address] [place] [address] 276 [place], [place] [address] Obdulio Barrera, Assigned Pulmonology 02/06/22 [place] Provider [address] [place] [address] 276 [place], [place] [address] Lesvia Stanley, GHADA Cardiac Rehabilitation 03/03/22 03/03/23 [facility] Therapist [address] [place] [phone] Marilia Deluna, PhD Assigned Behavioral 02/20/22 [address] [facility] Provider [place], [place] [address] Niyah Decker, [facility] Pharmacist Pharmacist 03/07/[address] [place] [address] 8[address] [place], [place] [address] Lesvia Stanley, GHADA Cardiac Rehabilitation 03/17/22 03/17/23 [facility] Therapist [address] [id number] Delia Avila, Pharmacist Pharmacist 06/07/[address] [facility] 909 [place], [place] [address] Mago Swift, [facility] Lead Instrument Assembler Sales Promoter - 08/05/21 Clinical Leela Javris, [facility] Pharmacist 07/26/22 05/15/23 [address] [facility] [address] [place] [id number] Niyah Decker, [facility] Assigned MTM 08/10/22 09/16/22 420 [facility] 812 Pharmacist [place], [place] [address] documented as of this encounter
--- OUTSIDE RECORDS SUMMARY | 2022-10-21 08:47 | XMS_ITS | Encounter Summary ---
:1980 Author Organization [place] Address [address] [place] [address] Care Team Providers Name Role Phone Aydee Burton ENCODING CLERK COAL AND ASH SUPERVISOR Primary Care Provider Aydee Burton ENCODING CLERK COAL AND ASH SUPERVISOR Unavailable [phone] Louisa Hood ENCODING CLERK COAL AND ASH SUPERVISOR Unavailable [phone] Angel Hannah MD Unavailable Lesly Celaya MD Unavailable Tawana Patel MA Unavailable Unavailable Ramses Mcpherson MD Unavailable [phone] Obdulio Barrera MD Unavailable [phone] Obdulio Barrera MD Unavailable [phone] Lesvia Stanley EP Unavailable Marilia Deluna PhD Unavailable Niyah Decker [facility] Unavailable Lesvia Stanley Unavailable AustinOhDelia Mel [facility] Unavailable [phone] JamisonMago [facility] Unavailable Simona Leela [facility] Unavailable Niyah Decker [facility] Unavailable Reason for Visit Rehab Therapy Physical Therapy (Routine: Next available opening) - Pending Review Specialty Diagnoses / Procedures Referred By Contact Refer red To Contact Diagnoses Tension headache Cervicogenic headache Cervicalgia Colby Yeung MD [address] [place] [address] Referral ID Status Reason Start Date Expiration Date Visits V isits Requested Authorized [id number] Pending 06/30/2022 06/30/2023 1 1 Review Encounter Details Date Type Department Care Team Description 09/13/2022 Therapy Visit [facility] Melanie Reardon in (Primary Rehabilitation Services Una Murray, PT Dx) [place] [facility] [address] [address] [address] [place] [address] (Work) [phone] Social History Tobacco Use Types Packs/Day Years [...] How often do you attend jewish or sikh services? Never 08/05/2021 Do you [...] Pulmonology Obdulio Barrera MD 420 [facility] 276 [place] [address] (Wo rk) 10/25/2022 PRE VISIT ENT Charo Burton MD Previsit [address] [place] [phone] (Wo rk) 10/25/2022 Office Visit Charo Carter MD [address] [place] [phone] (Wo rk) 10/25/2022 Office Visit ENT Provider, Jeannette Ent Dysphonia Pharmacy Technician 10/25/2022 Virtual Visit Pain & Palliative [place] [address] [place], [place] [address] 10/28/2022 Appointment Speech Therapy Anabel Chew, SQL DATA ARCHITECT [facility] 516 [facility] [address] [place], [place] [address] (Wo rk) 11/17/2022 Appointment Speech Therapy Anabel Chew, SQL DATA ARCHITECT [place] [address] [facility] [address] [place], [place] [address] (Wo rk) 12/01/2022 Office Visit Pain & [place] [address] [place], [place] [address] (Wo rk) 12/23/2022 Office Visit Neurology Colby Yeung MD [address] [place] [address] (Wo rk) documented as of this encounter Goals Goal Patient Goal Associated Recent Patient-Stated? Author Type Problems Progress Attend Speciality Care Plan Establish Care 50% No Randal rn, Appointments (10/10/2022 Mago Murray, (WATER POLLUTION SCIENTIST, 9:29 AM PULMONARY DISEASE SPECIALIST) [facility] Psychiatry, Counseling, and the Sleep Clinic) Note: Formatting of this note is differe nt from the original. Barriers: Appointment availability. Strengths: Recognition of need, Care [facility] Owner rdination involvement. Patient expressed understanding of goal: [...] Celaya MD [facility] Surgery [facility] To address painful lumps in my [...] No Mago Swift well-managed. self-managed 9:29 AM PULMONARY DISEASE SPECIALIST) MARISA Murray Note: Formatting of this note [...] Name Priority Date/Time Associated Diagnosis Comme nts IN MANUAL THERAPY, EA 15 Routine 09/14/2022 8:13 AM CDT Neck p ain MIN IN THERAPEUTIC Routine 09/14/2022 8:13 AM CDT Neck pain EXERCISES. EA 15 MIN documented in this encounter Visit Diagnoses Diagnosis Neck pain - Primary Cervicalgia documented in this encounter Additional Health Concerns Problem Noted Date Establish Care 07/05/2022 Chronic Pain is not self-managed 07/05/2022 Assessment Noted Time PHQ-9 Depression Total Score: 17 09/02/2022 2:19 PM CD T documented as of this encounter Care Teams Crop Roller Relationship Specialty Start Date End Date Aydee Burton, PCP - General Nurse Practitioner - 05/17/21 ENCODING CLERK COAL AND ASH SUPERVISOR Family [address] [place], [place] [address] Aydee Burton, Assigned PCP 04/28/21 ENCODING CLERK COAL AND ASH SUPERVISOR [address] [place], [place] [address] Louisa Hood, Assigned Neuroscience 07/11/21 ENCODING CLERK COAL AND ASH SUPERVISOR Provider [address] [place] [address] [place], Assigned Sleep 08/01/21 Angel Turcios, Provider [address] [place], [place] [address] Lesly Celaya MD Assigned Surgical 09/05/[address] Provider [place], [place] [address] Tawana Patel MA [facility] 09/30/21 Worker Ramses Mcpherson Assigned OBGYN 11/07/21 MD Onesimo Provider [address] [place] [address] Obdulio Barrera MD Critical Care 01/24/22 MD 420 [facility] [address] [place], [place] [address] Obdulio Barrera, Assigned Pulmonology 02/06/22 Provider 420 [facility] [address] [place], [place] [address] Lesvia Stanley, GHADA Cardiac Rehabilitation 03/03/22 03/03/23 [facility] Therapist [address] [facility] [place], [place] [address] Marilia Deluna, PhD Assigned Behavioral 02/20/22 [address] [facility] Provider [place], [place] [address] Niyah Decker, [facility] Pharmacist Pharmacist 03/07/[address] [place] [address] 812 [place], [place] [address] Lesvia Stanley, GHADA Cardiac Rehabilitation 03/17/22 03/17/23 [facility] Therapist [address] [address] Delia Avila, Pharmacist Pharmacist 06/07/22 [facility] [address] [place], [place] [phone] Mago Swift, [facility] Lead Accountant Tax Placement Coordinator - 08/05/21 Clinical Leela Jarvis, [facility] Pharmacist 07/26/22 05/15/23 [address] [facility] [address] [place] [phone] Niyah Decker, [facility] Assigned MTM 08/10/22 09/16/22 420 [facility] 812 [place] [address] documented as of this encounter
--- OUTSIDE RECORDS SUMMARY | 2022-10-21 08:47 | XMS_ITS | Encounter Summary ---
:1980 Author Organization [place] Address [address] [place] [address] Care Team Providers Name Role Phone Aydee Burton TOMATO PULPER OPERATOR LAMINATION TECHNICIAN Primary Care Provider Aydee Burton TOMATO PULPER OPERATOR LAMINATION TECHNICIAN Unavailable [phone] Louisa Hood TOMATO PULPER OPERATOR LAMINATION TECHNICIAN Unavailable [phone] Angel Hannah MD Unavailable Lesly Celaya MD Unavailable Tawana Patel MA Unavailable Unavailable Ramses Mcpherson MD Unavailable [phone] Obdulio Barrera MD Unavailable [phone] Obdulio Barrera MD Unavailable Lesvia Stanley EP Unavailable Marilia Deluna PhD Unavailable Niyah Decker [facility] Unavailable Lesvia Stanley Unavailable Delia Avila Mel [facility] Unavailable [phone] JamisonKikiMago Terri [facility] Unavailable Leela Jarvis [facility] Unavailable Niyah Decker [facility] Unavailable Encounter Details Date Type Department Care Team Description 08/29/2022 Virtual Visit [facility] Marilia Deluna, Jeremie onic pain syndrome (Primary Dx); Pain Management PhD Neuropathic pain; [place] [address] [address] Cervicogenic headache; [address] [place] [address] [place], [place] Cervical radiculopathy [address] [address] [place] [address] Social History Tobacco Use Types [...] How often do you attend rastafarian or congregation services? Never 08/05/2021 Do you [...] at Date Recorded Female 11/09/2021 7:53 PM PEDIATRIC UROLOGIST COVID-19 Exposure Response Date Recorded In the [...] video visit. Patient is currently in the [facility]? yes Patient would like the video invitation sent by: Text to cell phone: [phone]} Video Start Time: 2:00 PM Video Stop [...] won't approved for surgery - working with [facility] - discussed engaging in grounding prior [...] we ask that you call us at [phone] at least24 hours in advance to cancel.This [...] services. Mode of Communication: Video Conference via Usermind As the provider I attest to compliance with applicable laws and regulations related to telemedicine. Marilia Deluna PsyD LP Licensed Psychologist Outpatient Clinic Therapist [facility] Pain Management documented in this encounter Plan of Treatment Upcoming Encounters Date Type Specialty Care Team Description 10/21/2022 Office Visit Pulmonology Obdulio Barrera MD [address] [address] (Estefanía casanova) 10/25/2022 PRE VISIT Charo Carter MD Previsit 909 [place], [place] [address] (Wo rk) 10/25/2022 Office Visit Charo Carter MD 909 [place] [address] (Wo rk) 10/25/2022 Office Visit ENT Provider, Jeannette Ent Dysphonia Accredited Pharmacy Technician 10/25/2022 Virtual Visit Pain & Palliative Care Marilia Deluna, PhD [address] [place], [place] [address] 10/28/2022 Appointment Speech Therapy Anabel Chew, TEA BAG PACKER [address] 750035 (Wo rk) 11/17/2022 Appointment Speech Therapy Anabel Chew, CELINE [address] [address] (Wo rk) 12/01/2022 Office Visit Pain [place] [address] [place], [place] [address] (Wo rk) 12/23/2022 Office Visit Neurology Colby Yeung MD [address] [place], [place] [address] (Wo rk) documented as of this encounter Goals Goal Patient Goal Associated Recent Patient-Stated? Author Type Problems Progress Attend Speciality Care Plan Establish Care 50% No Randal rn, Appointments (10/10/2022 Mago Murray, (GRAPHICS COORDINATOR, 9:29 AM PEDIATRIC UROLOGIST) [facility] Psychiatry, Counseling, and the Sleep Clinic) Note: Formatting of this note is differe nt from the original. Barriers: Appointment availability. Strengths: Recognition of need, Care Manager Rn rdination involvement. Patient expressed understanding of [...] on: 08/16/2022 9:45 AM Lesly Celaya MD [facility] [place] To address painful lumps in my abdomin [...] No Mago Swift well-managed. self-managed 9:29 AM PEDIATRIC UROLOGIST) M, MARISA W Note: Formatting of this [...] Name Priority Date/Time Associated Diagnosis Comme nts [place] [facility] Routine 08/29/2022 3:05 PM Chronic [...] as of this encounter Care Teams Painter Assistant Relationship Specialty Start Date End Date Aydee Burton, PCP - General Nurse Practitioner - 05/17/21 TOMATO PULPER OPERATOR LAMINATION TECHNICIAN Family [address] [place], [place] [phone] Aydee Burton, Assigned PCP 04/28/21 TOMATO PULPER OPERATOR LAMINATION TECHNICIAN [address] [place] [address] Louisa Hood, Assigned Neuroscience 07/11/21 TOMATO PULPER OPERATOR LAMINATION TECHNICIAN Provider 500 [place], [place] [phone] [place], Assigned Sleep 08/01/21 Angel Turcios, Provider [address] [place], [place] [address] Lesly Celaya MD Assigned Surgical 09/05/21 [address] Provider [place], [place] [address] Tawana Patel MA [facility] 09/30/21 Worker Ramses Mcpherson Assigned OBGYN 11/07/21 MD Ones[facility] Provider [address] [place], [place] [phone] Obdulio Barrera MD Critical Care 01/24/[address] [place] [address]15 Obdulio Barrera, Assigned Pulmonology 02/06/[address] [phone] Lesvia Stanley, EP Cardiac Rehabilitation 03/03/22 03/03/23 [facility] Therapist [address] [id number] Marilia Deluna, PhD Assigned Behavioral 02/20/22 [address] [facility] Health Provider [place], [place] 38[address] Niyah Decker, [facility] Pharmacist Pharmacist 03/07/22 420 [facility] 812 [place], [place] [address] Lesvia Stanley, GHADA Cardiac Rehabilitation 03/17/22 03/17/23 [facility] Therapist [address] [id number] Delia Avila, Pharmacist Pharmacist 06/07/22 [facility] 909 [place], [place] [address] Mago Swift, [facility] Lead Cafeteria Cook Industrial Maintenance Instructor - 08/05/21 Clinical Leela Jarvis [facility] Pharmacist 07/26/22 05/15/23 3305 [facility] [place] [id number] Niyah Decker, [facility] Assigned MTM 08/10/22 09/16/22 420 [facility] 812 [place] [address] documented as of this encounter
--- OUTSIDE RECORDS SUMMARY | 2022-10-21 08:47 | XMS_ITS | Encounter Summary ---
:1980 Author Organization [place] Address [address] [place] [address] Care Team Providers Name Role Phone Aydee Burton PASTORAL ASSISTANT REGRINDER OPERATOR Primary Care Provider Aydee Burton PASTORAL ASSISTANT REGRINDER OPERATOR Unavailable [phone] Louisa Hood PASTORAL ASSISTANT REGRINDER OPERATOR Unavailable [phone] Angel Hannah MD Unavailable Lesly Celaya MD Unavailable Tawana Patel MA Unavailable Unavailable Ramses Mcpherson MD Unavailable [phone] Obdulio Barrera MD Unavailable [phone] Obdulio Barrera MD Unavailable [phone] Lesvia Stanley EP Unavailable Marilia Deluna PhD Unavailable Niyah Decker [facility] Unavailable Lesvia Stanley Unavailable AustinOhDelia Mel [facility] Unavailable [phone] JamisonMago [facility] Unavailable Leela Jarvis [facility] Unavailable Niyah Decker [facility] Unavailable Encounter Details Date Type Department Care [...] How often do you attend adventism or lutheran services? Never 08/05/2021 Do you [...] at Date Recorded Female 11/09/2021 7:53 PM TELEPHONE OPERATOR COVID-19 Exposure Response Date Recorded In the last 10 days, have you been in contact with No / Unsu re 08/26/2022 9:44 AM CDT someone who was confirmed or suspected to have Coronavirus/COVID-19? documented as of this encounter Plan of Treatment Upcoming Encounters Date Type Specialty Care Team Description 10/21/2022 Office Visit Pulmonology Obdulio Barrera MD 420 [facility] 276 [place], [place] [address] (Wo rk) 10/25/2022 PRE VISIT ENT Charo Burton MD Previsit [address] [place] [address] (Wo rk) 10/25/2022 Office Visit ENT Charo Burton MD [address] [place] [address] (Wo rk) 10/25/2022 Office Visit ENT Provider, Ent Dysphonia Wood Mill Supervisor 10/25/2022 Virtual Visit Pain & Palliative Care Marilia Deluna, PhD [address] [place], [place] [address] 10/28/2022 Appointment Speech Therapy Anabel Chew, DIRECTOR OF FUNDRAISING [address] [address] (Wo rk) 11/17/2022 Appointment Speech Therapy Anabel Chew, DIRECTOR OF FUNDRAISING [address] 256025 (Wo rk) 12/01/2022 Office Visit Pain & [place] [address] [place], [place] [address] (Wo rk) 12/23/2022 Office Visit Neurology Colby Yeung MD [address] [place] [address] (Wo rk) documented as of this encounter Goals Goal Patient Goal Associated Recent Patient-Stated? Author Type Problems Progress Attend Speciality Care Plan Establish Care 50% No Randal rn, Appointments (10/10/2022 Mago Murray, (METAL FURRER, 9:29 AM TELEPHONE OPERATOR) [facility] Psychiatry, Counseling, and the Sleep Clinic) Note: Formatting of this note is differe nt from the original. Barriers: Appointment availability. Strengths: Recognition of need, Care Overhead Line Worker rdination involvement. Patient expressed understanding of [...] MD [facility] [place] To address painful lumps in my abdomin [...] No Mago Swift well-managed. self-managed 9:29 AM TELEPHONE OPERATOR) M, MARISA W Note: Formatting of [...] documented as of this encounter Care Teams Fabric Worker Relationship Specialty Start Date End Date Aydee Burton, PCP - General Nurse Practitioner - 05/17/21 PASTORAL ASSISTANT REGRINDER OPERATOR Family [address] [place], [place] [phone] Aydee Burton, Assigned PCP 04/28/21 PASTORAL ASSISTANT REGRINDER OPERATOR [address] [place], [place] [phone] Louisa Hood, Assigned Neuroscience 07/11/21 PASTORAL ASSISTANT REGRINDER OPERATOR Provider 500 [place], [place] [phone] [place], Assigned Sleep 08/01/21 Angel Turcios, Provider [address] [place], [place] [phone] Lesly Celaya MD Assigned Surgical 09/05/21 [address] [place] [address] Tawana Patel MA [facility] 09/30/21 Worker Ramses Mcpherson Assigned OBGYN 11/07/21 MD [place] Provider [address] [place] [address] Obdulio Barrera MD Critical Care 01/24/22 420 [facility] 276 [place], [place] [phone] Obdulio Barrera, Assigned Pulmonology 02/06/22 MD Provider 420 [facility] [address] [place], [place] [address] Lesvia Stanley, GHADA Cardiac Rehabilitation 03/03/22 03/03/23 [facility] Therapist [address] [address] Marilia Deluna, PhD Assigned Behavioral 02/20/22 [address] [facility] Health [place] [address] Niyah Decker, [facility] Pharmacist Pharmacist 03/07/[address] [place] [address] 812 [place], [place] [address] Lesvia Stanley, GHADA Cardiac Rehabilitation 03/17/22 03/17/23 [facility] Therapist [address] [address] Delia Avila, Pharmacist Pharmacist 06/07/22 [facility] [address] [place] [address] Mago Swift, [facility] Lead Ukrainian Folk Arts Instructor Solution Lead - 08/05/21 Clinical Leela Jarvis [facility] Pharmacist 07/26/22 05/15/[address] [place] [address] [address] [place] [phone] Niyah Decker, [facility] Assigned MTM 08/10/22 09/16/22 420 [facility] 812 Pharmacist [place], [place] [address] documented as of this encounter
--- OUTSIDE RECORDS SUMMARY | 2022-10-21 08:47 | XMS_ITS | Encounter Summary ---
:1980 Author Organization [place] Address [address] [place] [address] Care Team Providers Name Role Phone Aydee Burton CROP AND SOIL SCIENTIST TRENCH PIPE LAYER Primary Care Provider Aydee Burton CROP AND SOIL SCIENTIST TRENCH PIPE LAYER Unavailable [phone] Louisa Hood CROP AND SOIL SCIENTIST TRENCH PIPE LAYER Unavailable [phone] Angel Hannah MD Unavailable Lesly Celaya MD Unavailable Tawana Patel MA Unavailable Unavailable Ramses Mcpherson MD Unavailable [phone] Obdulio Barrera MD Unavailable [phone] Obdulio Barrera MD Unavailable Lesvia Stanley EP Unavailable Marilia Deluna PhD Unavailable Niyah Decker [facility] Unavailable Lesvia Stanley Unavailable AustinOhDelia Mel [facility] Unavailable [phone] JamisonMago [facility] Unavailable Leela Jarvis [facility] Unavailable Niyah Decker [facility] Unavailable Encounter Details Date [...] How often do you attend gnosticism or yarsani services? 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/2021 7:53 PM DATA CAPTURE CLERK COVID-19 Exposure Response Date Recorded In the last 10 days, have you been in contact with No / Unsu re 09/05/2022 3:01 PM CDT someone who was confirmed or suspected to have Coronavirus/COVID-19? documented as of this encounter Plan of Treatment Upcoming Encounters Date Type Specialty Care Team Description 10/21/2022 Office Visit Pulmonology Obdulio Barrera MD 420 [facility] 276 [place], [place] [address] (Wo rk) 10/25/2022 PRE VISIT ENT Charo Burton MD Previsit [address] [place] [address] (Wo rk) 10/25/2022 Office Visit ENT Charo Burton MD [address] [place] [address] (Wo rk) 10/25/2022 Office Visit ENT Provider, Ent Dysphonia Hammer Smith 10/25/2022 Virtual Visit Pain & Palliative Care [place] [address] [place], [place] [address] 10/28/2022 Appointment Speech Therapy Anabel Chew, RF TEST TECHNICIAN [address] [address] (Wo rk) 11/17/2022 Appointment Speech Therapy Anabel Chew, RF TEST TECHNICIAN [address] [address]3365 (Wo rk) 12/01/2022 Office Visit Pain & [place] [address] [place], [place] [address] (Wo rk) 12/23/2022 Office Visit Neurology Colby Yeung MD [address] [place] [address] (Wo rk) documented as of this encounter Goals Goal Patient Goal Associated Recent Patient-Stated? Author Type Problems Progress Attend Speciality Care Plan Establish Care 50% No Randal rn, Appointments (10/10/2022 Mago Murray, (WATER TEAM LEADER, 9:29 AM DATA CAPTURE CLERK) [facility] Psychiatry, Counseling, and the Sleep Clinic) Note: Formatting of this note is differe nt from the original. Barriers: Appointment availability. Strengths: Recognition of need, Care Internal Combustion Engine Inspector rdination involvement. Patient expressed understanding of [...] Lesly Celaya MD [facility] [place] To address painful lumps in my abdomin [...] No Mago Swift well-managed. self-managed 9:29 AM DATA CAPTURE CLERK) M, MARISA W Note: Formatting of this [...] as of this encounter Care Teams Service Station Helper Relationship Specialty Start Date End Date Aydee Burton, PCP - General Nurse Practitioner - 05/17/21 CROP AND SOIL SCIENTIST TRENCH PIPE LAYER Family [address] [place], [place] [phone] Aydee Burton, Assigned PCP 04/28/21 CROP AND SOIL SCIENTIST TRENCH PIPE LAYER [address] [place], [place] [phone] Louisa Hood, Assigned Neuroscience 07/11/21 CROP AND SOIL SCIENTIST TRENCH PIPE LAYER Provider [address] [place], [place] [phone] [place], Assigned Sleep 08/01/21 Angel Turcios, Provider [address] [place], [place] [phone] Lesly Celaya MD Assigned Surgical 09/05/21 [address] [place] [address] Tawana Patel MA [facility] 09/30/21 Worker Ramses Mcpherson Assigned OBGYN 11/07/21 MD Onesimo Provider [address] [place] [address] Obdulio Barrera MD Critical Care 01/24/22 420 [facility] 276 [place], [place] [phone] Obdulio Barrera, Assigned Pulmonology 02/06/22 MD Provider 420 [facility] 276 [place], [place] [address] Lesvia Stanley, GHADA Cardiac Rehabilitation 03/03/22 03/03/23 [facility] Therapist [address] [address] Marilia Deluna, PhD Assigned Behavioral 02/20/22 [address] [facility] [place] [place] [address] Niyah Decker, [facility] Pharmacist Pharmacist 03/07/[address] [place] [address] 812 [place], [place] [address] Lesvia Stanley, GHADA Cardiac Rehabilitation 03/17/22 03/17/23 [facility] Therapist [address] [address] Delia Avila, Pharmacist Pharmacist 06/07/22 [facility] [address] [place] [phone] Mago Swift, [facility] Lead Rip Sawyer Feather Drying Machine Operator - 08/05/21 Clinical Leela Jarvis [facility] Pharmacist 07/26/22 05/15/[address] [place] [address] [address] [place] [phone] Niyah Decker, [facility] Assigned MTM 08/10/22 09/16/22 420 [facility] 812 Pharmacist [place], [place] [address] documented as of this encounter
--- OUTSIDE RECORDS SUMMARY | 2022-10-21 08:47 | XMS_ITS | Encounter Summary ---
:1980 Author Organization [place] Address [address] [place] [address] Care Team Providers Name Role Phone Aydee Burton HOMICIDE SQUAD LIEUTENANT AUTOMOTIVE PARTS CLERK Primary Care Provider Aydee Burton HOMICIDE SQUAD LIEUTENANT AUTOMOTIVE PARTS CLERK Unavailable [phone] Louisa Hood HOMICIDE SQUAD LIEUTENANT AUTOMOTIVE PARTS CLERK Unavailable [phone] Angel Hannah MD Unavailable Lesly Celaya MD Unavailable Tawana Patel MA Unavailable Unavailable Ramses Mcpherson MD Unavailable [phone] Obdulio Barrera MD Unavailable [phone] Obdulio Barrera MD Unavailable [phone] Lesvia Stanley EP Unavailable Marilia Deluna PhD Unavailable Niyah Decker [facility] Unavailable Lesvia Stanley Unavailable AustinOhDelia Mel [facility] Unavailable [phone] [facility] Unavailable Simona Leela [facility] Unavailable Niyah Decker [facility] Unavailable Reason for Visit Rehab Therapy Physical Therapy (Routine: Next available opening) - Pending Review Specialty Diagnoses / Procedures Referred By Contact Refer red To Contact Diagnoses Tension headache Cervicogenic headache Cervicalgia Colby Yeung MD [address] [place] [address] Referral ID Status Reason Start Date Expiration Date Visits V isits Requested Authorized [id number] Pending 06/30/2022 06/30/2023 1 1 Review Encounter Details Date Type Department Care Team Description 09/05/2022 Therapy Visit [facility] Melanie Reardon in (Primary Rehabilitation Services Una Murray, PT Dx) [place] [facility] [address] [address] [address] [place] [address] (Work) [phone] Social History Tobacco Use Types Packs/Day Years [...] How often do you attend mandaen or yazdanism services? Never 08/05/2021 Do you [...] at Date Recorded Female 11/09/2021 7:53 PM INPATIENT SERVICES RN COVID-19 Exposure Response Date Recorded In the last 10 days, have you been in contact with No / Unsu re 09/05/2022 3:01 PM CDT someone who was confirmed or suspected to have Coronavirus/COVID-19? documented as of this encounter Progress Notes Una Reardon, PT - 09/06/2022 7:53 AM CDT Images from the original note were not included. [facility] OUTPATIENT Physical Therapy ORTHOPEDIC EVALUATION PLAN OF TREATMENT FOR OUTPATIENT REHABILITATION (COMPLETE FOR INITIAL CLAIMS ONLY) Patient's Last Name, First Name, M.I. Date of : 1980 Marta [place] A Provider???s Name: [facility] Start of Care Date: 07/11/22 Onset [...] note. MD Callie Iyer-Una Carr, PT - 09/05/2022 3:10 PM CDT PROGRESS [...] Visit Pulmonology Obdulio Barrera MD [address] [address] (Wo rk) 10/25/2022 PRE VISIT ENT Charo Burton MD Previsit [address] [place] [address] (Wo rk) 10/25/2022 Office Visit ENT Charo Burton MD 909 [place], [place] [address] (Wo rk) 10/25/2022 Office Visit ENT Provider, Ent Dysphonia Technologies Division Chair 10/25/2022 Virtual Visit Pain & Palliative Care [place] [address] [place], [place] [address] 10/28/2022 Appointment Speech Therapy Anabel Chew, SITE SAFETY COORDINATOR [address] [address] (Wo rk) 11/17/2022 Appointment Speech Therapy Anabel Chew SITE SAFETY COORDINATOR [address] [address]3865 (Wo rk) 12/01/2022 Office Visit Pain & [place] [address] [place], [place] [address] (Wo rk) 12/23/2022 Office Visit Neurology Colby Yeung MD [address] [place], [place] [address] (Wo rk) documented as of this encounter Goals Goal Patient Goal Associated Recent Patient-Stated? Author Type Problems Progress Attend Speciality Care Plan Establish Care 50% Claudia Tee rn, Appointments (10/10/2022 Mago Murray, (CABIN CLEANING SUPERVISOR, 9:29 AM INPATIENT SERVICES RN) [facility] Psychiatry, Counseling, and the Sleep Clinic) Note: Formatting of this note is differe nt from the original. Barriers: Appointment availability. Strengths: Recognition of need, Care Groutman rdination involvement. Patient expressed understanding of goal: [...] Lesly Celaya MD [facility] [place] To address painful lumps in my abdomin [...] (10/10/2022 Mago Prieto well-managed. self-managed 9:29 AM INPATIENT SERVICES RN) Terri, MARISA W Note: Formatting of this [...] Name Priority Date/Time Associated Diagnosis Comme nts [place] MANUAL THERAPY, EA Routine 09/06/2022 7:54 AM CDT Neck pain 15 MIN documented in this encounter Visit Diagnoses Diagnosis Neck pain - Primary Cervicalgia documented in this encounter Additional Health Concerns Problem Noted Date Establish Care 07/05/2022 Chronic Pain is not self-managed 07/05/2022 Assessment Noted Time PHQ-9 Depression Total Score: 17 09/02/2022 2:19 PM CD T documented as of this encounter Care Teams Unit Manager Rn Relationship Specialty Start Date End Date Aydee Burton, PCP - General Nurse Practitioner - 05/17/21 HOMICIDE SQUAD LIEUTENANT AUTOMOTIVE PARTS CLERK Family [address] [place], [place] [address] Aydee Burton, Assigned PCP 04/28/21 HOMICIDE SQUAD LIEUTENANT AUTOMOTIVE PARTS CLERK [address] [place], [place] [address] Louisa Hood, Assigned Neuroscience 07/11/21 HOMICIDE SQUAD LIEUTENANT AUTOMOTIVE PARTS CLERK Provider [address] [place], [place] [address] [place], Assigned Sleep 08/01/21 Angel Turcios, Provider [address] [place], [place] [address] Lesly Celaya MD Assigned Surgical 09/05/21 [address] [place] [place] [address] Tawana Patel MA [facility] 09/30/21 Worker Ramses Mcpherson Assigned OBGYN 11/07/21 MD Onesimo Provider [address] [place], [place] [address] Obdulio Barrera MD Critical Care 01/24/22 420 [facility] 276 [place], [place] [address] Obdulio Barrera, Assigned Pulmonology 02/06/22 [place] Provider [address] [place] [address] Lesvia Stanley, EP Cardiac Rehabilitation 03/03/22 03/03/23 [facility] Therapist 6401 [facility] [place], [place] [address] Marilia Deluna, PhD Assigned Behavioral 02/20/22 [address] [facility] [address] Niyah Decker, [facility] Pharmacist Pharmacist 03/07/[address] [place] [address] 812 [place], [place] [address] Lesvia Stanley, EP Cardiac Rehabilitation 03/17/22 03/17/23 [facility] Therapist [address] [place] [phone] Delia Avila, Pharmacist Pharmacist 06/07/22 [facility] 909 [place], [place] [address] Mago Swift, [facility] Lead Bogger Operator Three Knife Trimmer - 08/05/21 Clinical Leela Jarvis RPH Pharmacist 07/26/22 05/15/23 8635 [facility] [place] [address] Niyah Decker [facility] Assigned MTM 08/10/22 09/16/22 420 [facility] 812 Pharmacist [place] [id number] documented as of this encounter
--- OUTSIDE RECORDS SUMMARY | 2022-10-21 08:47 | XMS_ITS | Encounter Summary ---
:1980 Author Organization [facility] Address [address] [place] [address] Care Team Providers Name Role Phone Aydee Burton DIGITAL MARKETING CONSULTANT BACK LINE COOK Primary Care Provider Aydee Burton DIGITAL MARKETING CONSULTANT BACK LINE COOK Unavailable [phone] Louisa Hood DIGITAL MARKETING CONSULTANT BACK LINE COOK Unavailable [phone] Angel Hannah MD Unavailable Lesly Celaya MD Unavailable Tawana Patel MA Unavailable Unavailable Ramses Mcpherson MD Unavailable [phone] Obdulio Barrera MD Unavailable [phone] Obdulio Barrera MD Unavailable [phone] Lesvia Stanley EP Unavailable Marilia Deluna PhD Unavailable Niyah Decker [facility] Unavailable Lesvia Stanley Unavailable AutsinOhDelia Mel [facility] Unavailable [phone] JamisonMago [facility] Unavailable Leela Jarvis [facility] Unavailable Niyah Decker [facility] Unavailable Encounter Details Date Type Department Care Team Description 08/26/2022 Virtual Visit [facility] Aydee Burton (P rimary Dx); [facility] ELADIO Mendez BACK LINE COOK Esophageal yeast infection (H) [address] [phone] [phone] Social History Tobacco Use Types Packs/Day Years [...] Date Recorded Female 11/09/2021 7:53 PM OFFICE MOVER COVID-19 Exposure Response Date Recorded In the last 10 days, have you been in contact with No / Unsu re 08/26/2022 9:44 AM CDT someone who was confirmed or suspected to have Coronavirus/COVID-19? documented as of this encounter Progress Notes Aydee Burton APRN CNP - 08/26/2022 3:30 PM CDT Images from the original note were not included. Marta is a 42 year old who is being evaluated via a billable video visit. How would you like to obtain your AVS? MyChart If the video visit is dropped, the invitation should be resent by: Text to cell phone: [phone] Will anyone else be joining your video [...] Recheck as needed. Aydee Burton APRN CNP [facility] Marta is a 42 year old, presenting for the following health issues: No chief complaint on file. HPI Concern - Thrush Onset: x4 days - at least Description: has had thrush in past from prednisone-completed yesterday prescribed by marksmanship instructor - mouths isn't that bad but can [...] Barrera MD 420 [facility] [address] [place], [place] [address] (Wo rk) 10/25/2022 PRE VISIT Charo Carter MD Previsit [address] [place] [address] [phone] (Wo rk) 10/25/2022 Office Visit Charo Carter MD [address] [place] [address] [phone] (Estefanía rk) 10/25/2022 Office Visit ENT Provider, Jeannette Ent Dysphonia Ore Crushing Dust Collector 10/25/2022 Virtual Visit [facility] Palliative [place] [address] [place], [place] [address] 10/28/2022 Appointment Speech Therapy Anabel Chew, CORNER BLOCK CUTTER [address] [place], [place] [address] (Wo rk) 11/17/2022 Appointment Speech Therapy Anabel Chew, CORNER BLOCK CUTTER [address] [place], [place] [address] (Wo rk) 12/01/2022 Office Visit Pain & [place] [address] [place], [place] [address] (Wo rk) 12/23/2022 Office Visit Neurology Colby Yeung MD [address] [place] [address] (Wo rk) documented as of this encounter Goals Goal Patient Goal Associated Recent Patient-Stated? Author Type Problems Progress Attend Speciality Care Plan Establish Care 50% No Randal rn, Appointments (10/10/2022 Mago Murray, (EXECUTIVE COACH, 9:29 AM OFFICE MOVER) [facility] Psychiatry, Counseling, and the Sleep Clinic) Note: Formatting of this note is differe nt from the original. Barriers: Appointment availability. Strengths: Recognition of need, Care Check And Transfer Beader rdination involvement. Patient expressed understanding of goal: [...] on: 08/16/2022 9:45 AM Lesly Celaya MD [facility] Surgery [facility] To address painful lumps in my [...] No Mago Swift well-managed. self-managed 9:29 AM OFFICE MOVER) MARISA Murray Note: Formatting of this note [...] yeast infection (H) Candidiasis of the esophagus documented in this encounter Additional Health Concerns Problem Noted Date Establish Care 07/05/2022 Chronic Pain is not self-managed 07/05/2022 Assessment Noted Time PHQ-9 Depression Total Score: 16 06/24/2022 9:31 AM CD T documented as of this encounter Care Teams Cotton Grader Relationship Specialty Start Date End Date Aydee Burton, PCP - General Nurse Practitioner - 05/17/21 DIGITAL MARKETING CONSULTANT BACK LINE COOK Family [address] [place], [place] [address] Aydee Burton, Assigned PCP 04/28/21 DIGITAL MARKETING CONSULTANT BACK LINE COOK [address] [place] [address] [id number] Louisa Hood, Assigned Neuroscience 07/11/21 DIGITAL MARKETING CONSULTANT BACK LINE COOK Provider [address] [place] [address] [phone] [place], Assigned Sleep 08/01/21 Angel Turcios, Provider [address] [place], [place] [address] Lesly Celaya MD Assigned Surgical 09/05/21 [address] Provider [place], [place] [phone] Tawana Patel MA [facility] 09/30/21 Worker Ramses Mcpherson Assigned OBGYN 11/07/21 MD Onesimo Provider [address] [place], [place] [address]67 Obdulio Barrera MD Critical Care 01/24/[address] [place] [address] [address] [place], [place] [address] Obdulio Barrera, Assigned Pulmonology 02/06/22 MD Provider [address] [place] [address] [address] [place], [place] [address] Lesvia Stanley, GHADA Cardiac Rehabilitation 03/03/22 03/03/23 [facility] Therapist [address] [place] [id number] Marilia Deluna, PhD Assigned Behavioral 02/20/22 [address] [facility] [place] [address] Niyah Decker, [facility] Pharmacist Pharmacist 03/07/[address] [place] [address] [address] [place], [place] [address] Lesvia Stanley, GHADA Cardiac Rehabilitation 03/17/22 03/17/23 [facility] Therapist [address] [id number] Delia Avila, Pharmacist Pharmacist 06/07/22 [facility] [address] [place] [address] Mago Swift, [facility] Lead Funeral Assistant Awning Craftsman - 08/05/21 Clinical Leela Jarvis, [facility] Pharmacist 07/26/22 05/15/23 [facility]5 [facility] [address] [place] [phone] Niyah Decker, [facility] Assigned MTM 08/10/22 09/16/22 420 [facility] [address]12 [place] [address] documented as of this encounter
--- OUTSIDE RECORDS SUMMARY | 2022-10-21 08:48 | XMS_ITS | Encounter Summary ---
:1980 Author Organization [facility] Address [address] [place] [address] Care Team Providers Name Role Phone Aydee Burton WATER TAXI BOAT MATE TEAM PRIMARY CARE PHYSICIAN Primary Care Provider Aydee Burton WATER TAXI BOAT MATE TEAM PRIMARY CARE PHYSICIAN Unavailable [phone] Louisa Hood WATER TAXI BOAT MATE TEAM PRIMARY CARE PHYSICIAN Unavailable [phone] Angel Hannah MD Unavailable Lesly Celaya MD Unavailable Tawana Patel MA Unavailable Unavailable Ramses Mcpherson MD Unavailable [phone] Obdulio Barrera MD Unavailable [phone] Obdulio Barrera MD Unavailable [phone] Lesvia Stanley EP Unavailable Marilia Deluna PhD Unavailable Niyah Decker [facility] Unavailable Lesvia Stanley Unavailable [place], Delia Mel [facility] Unavailable [phone] Mago Swift [facility] Unavailable SimonaLeela [facility] Unavailable Reason for Visit Rehab Therapy Physical Therapy (Routine: Next available opening) - Pending Review Specialty Diagnoses / Procedures Referred By Contact Refer red To Contact Diagnoses Tension headache Cervicogenic headache Cervicalgia Colby Yeung MD [address] [place] [address] Referral ID Status Reason Start Date Expiration Date Visits V isits Requested Authorized [id number] Pending 06/30/2022 06/30/2023 1 1 Review Encounter Details Date Type Department Care Team Description 08/04/2022 Therapy Visit [facility] DavidMelanie Tang in (Primary Rehabilitation Services Una Murray, PT Dx) [facility] [address] [place] [phone] [address] [place] [address] (Work) [phone] Social History Tobacco Use Types Packs/Day Years [...] How often do you attend holiness or hindu services? 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/2021 7:53 PM MANAGER OF BUSINESS COVID-19 Exposure Response Date Recorded In the last 10 days, have you been in contact with No / Unsu re 08/04/2022 2:27 PM CDT someone who was confirmed or suspected to have Coronavirus/COVID-19? documented as of this encounter Plan of Treatment Upcoming Encounters Date Type Specialty Care Team Description 10/21/2022 Office Visit Pulmonology Obdulio Barrera MD 420 [facility] [address] [place] [address] (Wo rk) 10/25/2022 PRE VISIT ENT Charo Burton MD Previsit [address] [place] [address] (Wo rk) 10/25/2022 Office Visit Charo Carter MD [address] [place] [address] [phone] (Wo rk) 10/25/2022 Office Visit ENT Provider, Jeannette Ent Dysphonia Environmental Engineering Assistant 10/25/2022 Virtual Visit Pain & [place]iative [place] [address] [place], [place] [address] 10/28/2022 Appointment Speech Therapy Anabel Chew, CELINE [address] [place] [address] (Wo rk) 11/17/2022 Appointment Speech Therapy Anabel Chew SLP [address] [place], [place] [address] (Wo rk) 12/01/2022 Office Visit Pain & [place] [address] [place], [place] [address] (Wo rk) 12/23/2022 Office Visit Neurology Colby Yeung MD [address] [place] [address] (Wo rk) documented as of this encounter Goals Goal Patient Goal Associated Recent Patient-Stated? Author Type Problems Progress Attend Speciality Care Plan Establish Care 50% No Randal rn, Appointments (10/10/2022 Mago Murray, (SOLAR POOL HEATING INSTALLER, 9:29 AM MANAGER OF BUSINESS) [facility] Psychiatry, Counseling, and the Sleep Clinic) Note: Formatting of this note is differe nt from the original. Barriers: Appointment availability. Strengths: Recognition of need, Care Pig Casting Machine Operator rdination involvement. Patient expressed understanding [...] AM Lesly Celaya MD [facility] Surgery [facility] To address painful lumps in [...] No Mago Swift well-managed. self-managed 9:29 AM MANAGER OF BUSINESS) M, LICS W Note: Formatting of this [...] documented as of this encounter Care Teams Violin Tutor Relationship Specialty Start Date End Date Aydee Burton, PCP - General Nurse Practitioner - 05/17/21 WATER TAXI BOAT MATE TEAM PRIMARY CARE PHYSICIAN Family [address] [place], [place] [phone] Aydee Burton, Assigned PCP 04/28/21 WATER TAXI BOAT MATE TEAM PRIMARY CARE PHYSICIAN [address] [place], [place] [phone] Louisa Hood, Assigned Neuroscience 07/11/21 WATER TAXI BOAT MATE TEAM PRIMARY CARE PHYSICIAN Provider [address] [place] [address] [place], Assigned Sleep 08/01/21 Angel Turcios, Provider [address] [place] [address] Lesly Celaya MD Assigned Surgical 09/05/21 [address] [facility] Provider [place], [place] [address] Tawana Patel [facility] 09/30/21 Worker Ramses Mcpherson Assigned OBGYN 11/07/21 MD Onesimo Provider [address] [place], [place] [address] Obdulio Barrera MD Critical Care 01/24/[address] [place] [address] 276 [place], [place] [address] Obdulio Barrera, Assigned Pulmonology 02/06/22 MD Provider [address] [place] [address] [phone] Lesvia Stanley, GHADA Cardiac Rehabilitation 03/03/22 03/03/23 [facility] Therapist [address] [id number] Marilia Deluna, PhD Assigned Behavioral 02/20/22 [address] [facility] Provider [place], [place] [address] Niyah Decker, [facility] Pharmacist Pharmacist 03/07/[address] [place] [address] 812 [place], [place] [address] Lesvia Stanley, GHADA Cardiac Rehabilitation 03/17/22 03/17/23 [facility] Therapist [address] [address] Delia Avila, Pharmacist Pharmacist 06/07/22 [facility] [address] [place], [place] [address] Mago Swift, [facility] Lead Substation Electrician Sex Therapist - 08/05/21 Clinical Leela Jarvis, [facility] Pharmacist 07/26/22 05/15/23 33[address] [facility] [place] [phone] documented as of this encounter
--- OUTSIDE RECORDS SUMMARY | 2022-10-21 08:48 | XMS_ITS | Encounter Summary ---
:1980 Author Organization [facility] Address [address] [place] [address] Care Team Providers Name Role Phone Aydee Burton DIGITAL RECRUITER E M ASSEMBLER Primary Care Provider Aydee Burton DIGITAL RECRUITER E M ASSEMBLER Unavailable [phone] Louisa Hood DIGITAL RECRUITER E M ASSEMBLER Unavailable [phone] Angel Hannah MD Unavailable Lesly Celaya MD Unavailable Tawana Patel MA Unavailable Unavailable Ramses Mcpherson MD Unavailable [phone] Obdulio Barrera MD Unavailable [phone] Obdulio Barrera MD Unavailable [phone] Lesvia Stanley EP Unavailable Marilia Deluna PhD Unavailable Niyah Decker [facility] Unavailable Lesvia Stanley Unavailable Delia Avila [facility] Unavailable [phone] JamisonKikiMago Terri [facility] Unavailable Leela Jarvis [facility] Unavailable Niyah Decker [facility] Unavailable Reason for Visit Reason Comments Pain Encounter Details Date Type Department Care Team Description 08/10/2022 Office Visit [facility] Caleb Dewey MD Chronic pain syndrome (Primary Dx); Pain Management [address] [address] [employer] Neuropathic pain; [place], [place] Myofascial pain syndrome [address] [address] [address] [place] [address] [phone] Social History Tobacco Use Types Packs/Day Years [...] er 08/05/2021 How often do you attend restoration or church services? Never 08/05/2021 Do you belong to any clubs or organizations such as restoration N o 08/05/2021 groups, unions, fraternal or [...] at Date Recorded Female 11/09/2021 7:53 PM CLEANING SUPERVISOR COVID-19 Exposure Response Date Recorded In [...] Cleaning CMA - 08/10/2022 1:30 PM CDT [facility] Post Procedure [...] (Monday through Monday 8 am-4:30 pm) at [phone] or the Provider Line after hours at [phone]: documented in this encounter Progress Notes Caleb Dewey MD - 08/10/2022 1:30 PM CDT Images from the original note were not included. [facility] Date of visit: 08/10/2022 [...] and causing headaches. - Still interested in housekeeper child care - She saw neurology in June who [...] left elbow (work comp) Dr. Linder at [facility]. She has severe asthma and may not be a candidate to have her screws taken out. She is seeing her outside residential sales professional later this monthand hopes to be cleared for surgery. - General Manager In Training is Dr. Barrera through [facility]. - Lives in [facility] [place] 30 minutes. - Kids are 20, 18, 15, 13, 11 and 10 years old and she is . This went through in 2019 and she has shared custody 50:50. PR GENERAL MANAGER REVIEWED TODAY: LYRICA 25MG #50 07/20/2022 GABAPENTIN [...] 2021 BOTOX injections many years ago at [facility] - made SHETH's worse IMAGING: MRI CERVICAL [...] has been diagnosed with occipital neuralgia at [facility] years ago. She has established care with Neurology for her headaches (Dr. Yeung) Previously went to [facility] and has tried botox in the past [...] DEWEY MD Pain Management & Addiction Medicine [facility] - Procedure Note Date [...] Care Team Description 10/21/2022 Office Visit Pulmonology MeherrinObdulio moyer MD 420 [facility] 276 [place], [place] [address] (Wo rk) 10/25/2022 PRE VISIT ENT Charo Burton MD Previsit [address] [place] [address] [phone] (Wo rk) 10/25/2022 Office Visit ENT Charo Burton MD [address] [place] [address] [phone] (Wo rk) 10/25/2022 Office Visit ENT Provider, Ent Dysphonia Van Driver 10/25/2022 Virtual Visit Pain & Palliative [place] [address] [place], [place] [address] 10/28/2022 Appointment Speech Therapy Anabel Chew, REAL ESTATE DEVELOPMENT MANAGER [address] [place], [place] [address] (Wo rk) 11/17/2022 Appointment Speech Therapy Anabel Chew, REAL ESTATE DEVELOPMENT MANAGER [address] [place], [place] [phone] (Wo rk) 12/01/2022 Office Visit Pain & [place] [address] [place], [place] [address] (Wo rk) 12/23/2022 Office Visit Neurology Colby Yeung MD [address] [place] [address] (Wo rk) documented as of this encounter Goals Goal Patient Goal Associated Recent Patient-Stated? Author Type Problems Progress Attend Speciality Care Plan Establish Care 50% No Randal rn, Appointments (10/10/2022 Mago Murray, (NEGATIVE RETOUCHER, 9:29 AM CLEANING SUPERVISOR) [facility] Psychiatry, Counseling, and the Sleep Clinic) Note: Formatting of this note is differe nt from the original. Barriers: Appointment availability. Strengths: Recognition of need, Care Regional Sales Executive rdination involvement. Patient expressed understanding of goal: [...] Lesly Celaya MD [facility] Surgery [facility] To address painful lumps in my [...] No Mago Swift well-managed. self-managed 9:29 AM CLEANING SUPERVISOR) MARISA Murray Note: Formatting of this note [...] Myofascial pain syndrome Mylagia and myositis, unspecified documented in this encounter Administered Medications Inactive [...] documented as of this encounter Care Teams Netbackup Administrator Relationship Specialty Start Date End Date Aydee Burton, PCP - General Nurse Practitioner - 05/17/21 DIGITAL RECRUITER E M ASSEMBLER Family [address] [place], [place] [phone] Aydee Burton, Assigned PCP 04/28/21 DIGITAL RECRUITER E M ASSEMBLER [address] [place], [place] [address] Louisa Hood, Assigned Neuroscience 07/11/21 DIGITAL RECRUITER E M ASSEMBLER Provider [address] [place], [place] [phone] [place], Assigned Sleep 08/01/21 Angel Turcios, Provider [address] [place], [place] [phone] Lesly Celaya MD Assigned Surgical 09/05/21 [address] Provider [place], [place] [phone] Tawana Patel MA [facility] 09/30/21 Worker Ramses Mcpherson Assigned OBGYN 11/07/21 MD Onesimo Provider [address] [place], [place] [address] Obdulio Barrera MD Critical Care 01/24/[address] [place] [address] 276 [place] [address] Obdulio Barrera, Assigned Pulmonology 02/06/22 MD Provider [address] [place] [address] 304685 Lesvia Stanley, GHADA Cardiac Rehabilitation 03/03/22 03/03/23 [facility] Therapist [address] [place], [place] [address] Marilia Deluna, PhD Assigned Behavioral 02/20/22 [address] [facility] Provider [place], [place] [address] Niyah Decker, [facility] Pharmacist Pharmacist 03/07/[address] [place] [address] 812 [place], [place] [address] Lesvia Stanley, GHADA Cardiac Rehabilitation 03/17/22 03/17/23 [facility] Therapist [address] [place] [address] Delia Avila, Pharmacist Pharmacist 06/07/[address] [address] Mago Swift, [facility] Lead Canary Raiser Inside Finisher - 08/05/21 Clinical Leela Jarvis, [facility] Pharmacist 07/26/22 05/15/23 [address] [facility] [address] [place] [address] Niyah Decker, [facility] Assigned MTM 08/10/22 09/16/22 420 [facility] 812 [place] [address] documented as of this encounter
--- OUTSIDE RECORDS SUMMARY | 2022-10-21 08:48 | XMS_ITS | Encounter Summary ---
:1980 Author Organization [place] Address [address] [place] [address] Care Team Providers Name Role Phone Aydee Burton INTERNET MARKETING STRATEGIST SPRING COILER Primary Care Provider Aydee Burton INTERNET MARKETING STRATEGIST SPRING COILER Unavailable [phone] Louisa Hood INTERNET MARKETING STRATEGIST SPRING COILER Unavailable [phone] Angel Hannah MD Unavailable Lesly Celaya MD Unavailable Tawana Patel MA Unavailable Unavailable Ramses Mcpherson MD Unavailable [phone] Obdulio Barrera MD Unavailable [phone] Obdulio Barrera MD Unavailable [phone] Lesvia Stanley EP Unavailable Marilia Deluna PhD Unavailable Niyah Decker [facility] Unavailable Lesvia Stanley Unavailable AustinOhDelia Mel [facility] Unavailable [phone] JamisonMago [facility] Unavailable Leela Jarvis [facility] Unavailable Niyah Decker [facility] Unavailable Encounter Details Date Type [...] Date Recorded Female 11/09/2021 7:53 PM MANAGER SOLAR COVID-19 Exposure Response Date Recorded In the last 10 days, have you been in contact with No / Unsu re 08/10/2022 1:17 PM CDT someone who was confirmed or suspected to have Coronavirus/COVID-19? documented as of this encounter Plan of Treatment Upcoming Encounters Date Type Specialty Care Team Description 10/21/2022 Office Visit Pulmonology Obdulio Barrera MD 420 [facility] [address] [place], [place] [phone] (Wo rk) 10/25/2022 PRE VISIT ENT Charo Burton MD Previsit [address] [place] [address] (Wo rk) 10/25/2022 Office Visit ENT Charo Burton MD [address] [place] [address] (Wo rk) 10/25/2022 Office Visit ENT Provider, Ent Dysphonia Meter Shop Superintendent 10/25/2022 Virtual Visit Pain & Palliative [place] [address] [place], [place] [address] 10/28/2022 Appointment Speech Therapy Anabel Chew, STICK ROLLER [address] [address]97135 (Wo rk) 11/17/2022 Appointment Speech Therapy Anabel Chew, STICK ROLLER [address] [id number] (Wo rk) 12/01/2022 Office Visit Pain & [place] [address] [place], [place] [address] (Wo rk) 12/23/2022 Office Visit Neurology Colby Yeung MD [address] [place] [address] (Wo rk) documented as of this encounter Goals Goal Patient Goal Associated Recent Patient-Stated? Author Type Problems Progress Attend Speciality Care Plan Establish Care 50% No Randal rn, Appointments (10/10/2022 Mago Murray, (MENTAL HEALTH CLINICIAN, 9:29 AM MANAGER SOLAR) [facility] Psychiatry, Counseling, and the Sleep Clinic) Note: Formatting of this note is differe nt from the original. Barriers: Appointment availability. Strengths: Recognition of need, Care Glycerin Operator rdination involvement. Patient expressed understanding of [...] Celaya MD [facility] [place] To address painful lumps in my abdomin [...] Mago Swift well-managed. self-managed 9:29 AM MANAGER SOLAR) M, MARISA W Note: Formatting of this [...] documented as of this encounter Care Teams Wood Hacker Relationship Specialty Start Date End Date Aydee Burton, PCP - General Nurse Practitioner - 05/17/21 INTERNET MARKETING STRATEGIST SPRING COILER Family [address] [place], [place] [phone] Aydee Burton, Assigned PCP 04/28/21 INTERNET MARKETING STRATEGIST SPRING COILER [address] [place], [place] [phone] Louisa Hood, Assigned Neuroscience 07/11/21 INTERNET MARKETING STRATEGIST SPRING COILER Provider [address] [place], [place] [phone] [place], Assigned Sleep 08/01/21 Angel Turcios, Provider [address] [place], [place] [phone] Lesly Celaya MD Assigned Surgical 09/05/21 [address] [place] [address] Tawana Patel MA [facility] Health 09/30/21 Worker Ramses Mcpherson Assigned OBGYN 11/07/21 MD Onesimo Provider [address] [place] [address] Obdulio Barrera MD Critical Care 01/24/22 420 [facility] [address] [place], [place] [phone] Obdulio Barrera, Assigned Pulmonology 02/06/22 MD Provider 420 [facility] [address] [place], [place] [address] Lesvia Stanley, GHADA Cardiac Rehabilitation 03/03/22 03/03/23 [facility] Therapist [address] [id number] Marilia Deluna, PhD Assigned Behavioral 02/20/22 [address] [facility] [place] [address] Niyah Decker, [facility] Pharmacist Pharmacist 03/07/[address] [place] [address] 8[address] [place], [place] 2[address] Lesvia Stanley, GHADA Cardiac Rehabilitation 03/17/22 03/17/23 [facility] Therapist [address] [address] Delia Avila, Pharmacist Pharmacist 06/07/22 [facility] [address] [place] [address]15 Mago Swift, [facility] Lead Event Marketing Coordinator Tourist Agent - 08/05/21 Clinical Leela Jarvis [facility] Pharmacist 07/26/22 05/15/[address] [place] [address] [address] [place] [phone] Niyah Decker, [facility] Assigned MTM 08/10/22 09/16/22 420 [facility] 812 Pharmacist [place], [place] [address] documented as of this encounter
--- OUTSIDE RECORDS SUMMARY | 2022-10-21 08:48 | XMS_ITS | Encounter Summary ---
:1980 Author Organization [place] Address [address] [place] [address] Care Team Providers Name Role Phone Aydee Burton ASP NET PROGRAMMER DIRECTOR EXTERNAL COMMUNICATIONS Primary Care Provider Aydee Burton ASP NET PROGRAMMER DIRECTOR EXTERNAL COMMUNICATIONS Unavailable [phone] Louisa Hood ASP NET PROGRAMMER DIRECTOR EXTERNAL COMMUNICATIONS Unavailable [phone] Angel Hannah MD Unavailable Lesly Celaya MD Unavailable Tawana Patel MA Unavailable Unavailable Ramses Mcpherson MD Unavailable [phone] Obdulio Barrera MD Unavailable [phone] Obdulio Barrera MD Unavailable Lesvia Stanley EP Unavailable Marilia Deluna PhD Unavailable Niyah Decker [facility] Unavailable Lesvia Stanley Unavailable AustinOhDelia Mel [facility] Unavailable [phone] JamisonMago [facility] Unavailable Leela Jarvis [facility] Unavailable Niyah Decker [facility] Unavailable Encounter Details Date Type [...] How often do you attend gnosticist or muslim services? Never 08/05/2021 Do you [...] at Date Recorded Female 11/09/2021 7:53 PM PARTS SPECIALIST COVID-19 Exposure Response Date Recorded In the last 10 days, have you been in contact with No / Unsu re 08/12/2022 2:34 PM CDT someone who was confirmed or suspected to have Coronavirus/COVID-19? documented as of this encounter Plan of Treatment Upcoming Encounters Date Type Specialty Care Team Description 10/21/2022 Office Visit Pulmonology Obdulio Barrera MD 420 [facility] 276 [place], [place] [address] (Wo rk) 10/25/2022 PRE VISIT ENT Charo Burton MD Previsit [address] [place] [address] (Wo rk) 10/25/2022 Office Visit ENT Charo Burton MD [address] [place] [address] (Wo rk) 10/25/2022 Office Visit ENT Provider, Ent Dysphonia Sales Development Representative 10/25/2022 Virtual Visit Pain & Palliative Care [place] [address] [place], [place] [address] 10/28/2022 Appointment Speech Therapy Anabel Chew, BAD CLOTH CHECKER [address] [address] (Wo rk) 11/17/2022 Appointment Speech Therapy Anabel Chew, BAD CLOTH CHECKER [address] [address] (Wo rk) 12/01/2022 Office Visit Pain & [place] [address] [place], [place] [address] (Wo rk) 12/23/2022 Office Visit Neurology Colby Yeung MD [address] [place] [address] (Wo rk) documented as of this encounter Goals Goal Patient Goal Associated Recent Patient-Stated? Author Type Problems Progress Attend Speciality Care Plan Establish Care 50% No Randal rn, Appointments (10/10/2022 Mago Murray, (COMPONENT LAB TECH, 9:29 AM PARTS SPECIALIST) [facility] Psychiatry, Counseling, and the Sleep Clinic) Note: Formatting of this note is differe nt from the original. Barriers: Appointment availability. Strengths: Recognition of need, Care Upkeep Mechanic rdination involvement. Patient expressed understanding of [...] 08/16/2022 9:45 AM Lesly Celaya MD [facility] [place] To address painful lumps in my abdomin [...] No Mago Swift well-managed. self-managed 9:29 AM PARTS SPECIALIST) M, MARISA W Note: Formatting of this [...] documented as of this encounter Care Teams Railroad Crossing Protection Maintainer Relationship Specialty Start Date End Date Aydee Burton, PCP - General Nurse Practitioner - 05/17/21 ASP NET PROGRAMMER DIRECTOR EXTERNAL COMMUNICATIONS Family [address] [place], [place] [phone] Aydee Burton, Assigned PCP 04/28/21 ASP NET PROGRAMMER DIRECTOR EXTERNAL COMMUNICATIONS [address] [place], [place] [phone] Louisa Hood, Assigned Neuroscience 07/11/21 ASP NET PROGRAMMER DIRECTOR EXTERNAL COMMUNICATIONS Provider [address] [place], [place] [phone] [place], Assigned Sleep 08/01/21 Angel Turcios, Provider [address] [place], [place] [phone] Lesly Celaya MD Assigned Surgical 09/05/21 [address] [place] [address] Tawana Patel MA [facility] 09/30/21 Worker Ramses Mcpherson Assigned OBGYN 11/07/21 MD Onesimo Provider [address] [place] [address] Obdulio Barrera MD Critical Care 01/24/22 420 [facility] [address] [place], [place] [phone] Obdulio Barrera, Assigned Pulmonology 02/06/22 MD Provider 420 [facility] [address] [place], [place] [address] Lesvia Stanley, GHADA Cardiac Rehabilitation 03/03/22 03/03/23 [facility] Therapist [address] [id number] Marilia Deluna, PhD Assigned Behavioral 02/20/22 [address] [facility] [place] [place] [address] Niyah Decker, [facility] Pharmacist Pharmacist 03/07/[address] [place] [address] 812 [place], [place] [address] Lesvia Stanley, GHADA Cardiac Rehabilitation 03/17/22 03/17/23 [facility] Therapist [address] [address] Delia Avila, Pharmacist Pharmacist 06/07/22 [facility] [address] [place] [phone] Mago Swift, [facility] Lead Skinner Pelts Brick Catcher - 08/05/21 Clinical Leela Jarvis [facility] Pharmacist 07/26/22 05/15/[address] [place] [address] [address] [place] [phone] Niyah Decker, [facility] Assigned MTM 08/10/22 09/16/22 420 [facility] 812 Pharmacist [place], [place] [phone] documented as of this encounter
--- OUTSIDE RECORDS SUMMARY | 2022-10-21 08:48 | XMS_ITS | Encounter Summary ---
:1980 Author Organization [place] Address [address] [place] [address] Care Team Providers Name Role Phone Aydee Burton LONG WALL MINING MACHINE TENDER SIGNAL TECHNICIAN Primary Care Provider [phone] Aydee Burton LONG WALL MINING MACHINE TENDER SIGNAL TECHNICIAN Unavailable [phone] Louisa Hood LONG WALL MINING MACHINE TENDER SIGNAL TECHNICIAN Unavailable [phone] Angel Hannah MD Unavailable Lesly Celaya MD Unavailable Tawana Patel MA Unavailable Unavailable Ramses Mcpherson MD Unavailable [phone] Obdulio Barrera MD Unavailable [phone] Obdulio Barrera MD Unavailable [phone] Lesvia Stanley EP Unavailable Marilia Deluna PhD Unavailable Niyah Decker [facility] Unavailable Lesvia Stanley Unavailable Austin, Delia Mel [facility] Unavailable [phone] JamisonMago [facility] Unavailable Leela Jarvis [facility] Unavailable Niyah Decker [facility] Unavailable Reason for Visit Reason Comments Follow Up Review EEG- headaches and sp ell of altered cognition Encounter Details Date Type Department Care Team Description 08/16/[address] [facility] Anjana, Tension bernardo delgado (Primary Dx); Neurology Clinics - Colby lyn occipital neuralgia; Damari Carbajal MD Spell of altered cognition; [address] [facility] Kylie Cervicalgia [facility], [address] [place] [address] [place] [address] [phone] Social History Tobacco Use Types Packs/Day Years [...] How often do you attend catholic or sabianist services? 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/2021 7:53 PM WATER RESOURCE MANAGER COVID-19 Exposure Response Date Recorded In [...] NOTE DATE OF VISIT: 08/16/2022 CLINIC LOCATION: [facility] PATIENT NAME: Marta Hill DATE of : [...] activities per the note. Colby Yeung MD [facility] Neurology (Chart documentation was completed in part with [employer] voice-recognition software. Even though reviewed, some grammatical, spelling, and word errors may remain.) Belinda Ellis - 08/16/2022 11:30 AM CDT Marta Hill [...] MD 420 [facility] 276 [place], [place] [address] (Wo rk) 10/25/2022 PRE VISIT ENT Charo Burton MD Previsit [address] [place] [phone] (Wo rk) 10/25/2022 Office Visit ENT Charo Burton MD [address] [place] [phone] (Wo rk) 10/25/2022 Office Visit ENT Provider, Ent Dysphonia Pastry Chef 10/25/2022 Virtual Visit Pain & Palliative [place] [address] [place], [place] [address] 10/28/2022 Appointment Speech Therapy Anabel Chew, MUNICIPAL MAINTENANCE WORKER [address] [address] (Wo rk) 11/17/2022 Appointment Speech Therapy Anabel Chew, CELINE [address] [address]406[address] (Wo rk) 12/01/2022 Office Visit Pain [place] [address] [place], [place] [address] (Wo rk) 12/23/2022 Office Visit Neurology Colby Yeung MD [address] [place], [place] [address] (Wo rk) documented as of this encounter Goals Goal Patient Goal Associated Recent Patient-Stated? Author Type Problems Progress Attend Speciality Care Plan Establish Care 50% Claudia Tee rn, Appointments (10/10/2022 Mago Murray, (DIESEL ENGINEER, 9:29 AM WATER RESOURCE MANAGER) [facility] Psychiatry, Counseling, and the Sleep Clinic) Note: Formatting of this note is differe nt from the original. Barriers: Appointment availability. Strengths: Recognition of need, Care Wallpaper Printer rdination involvement. Patient expressed understanding of [...] 08/16/2022 9:45 AM Lesly Celaya MD [facility] Surgery [facility] To address [...] (10/10/2022 Mago Prieto well-managed. self-managed 9:29 AM WATER RESOURCE MANAGER) MARISA Murray W Note: Formatting of this [...] signs and symptoms involving cogni tion Cervicalgia documented in this encounter Additional Health Concerns Problem Noted Date Establish Care 07/05/2022 Chronic Pain is not self-managed 07/05/2022 Assessment Noted Time PHQ-9 Depression Total Score: 16 06/24/2022 9:31 AM CD T documented as of this encounter Care Teams Research And Evaluation Manager Relationship Specialty Start Date End Date Aydee Burton, PCP - General Nurse Practitioner - 05/17/21 LONG WALL MINING MACHINE TENDER SIGNAL TECHNICIAN Family [address] [place], [place] [address] Aydee Burton, Assigned PCP 04/28/21 LONG WALL MINING MACHINE TENDER SIGNAL TECHNICIAN [address] [place], [place] 5[address] Louisa Hood, Assigned Neuroscience 07/11/21 LONG WALL MINING MACHINE TENDER SIGNAL TECHNICIAN Provider [address] [place], [place] [address] [place], Assigned Sleep 08/01/21 Angel Turcios, Provider [address] [place], [place] [address] Lesly Celaya MD Assigned Surgical 09/05/21 [address] Provider [place], [place] [phone] Tawana Patel MA [facility] Health 09/30/21 Worker Ramses Mcpherson Assigned OBGYN 11/07/21 MD Onesimo Provider [address] [place], [place] [address] Obdulio Barrera MD Critical Care 01/24/[address] [place] [address] 276 [place] [address] Obdulio Barrera, Assigned Pulmonology 02/06/22 MD Provider [address] [place] [address]145 Lesvia Stanley, GHADA Cardiac Rehabilitation 03/03/22 03/03/23 [facility] Therapist [address] [place], [place] [address] Marilia Deluna, PhD Assigned Behavioral 02/20/[address] [facility] Provider [place], [place] [address] Niyah Decker, [facility] Pharmacist Pharmacist 03/07/[address] [place] [address] 812 [place], [place] [address] Lesvia Stanley, GHADA Cardiac Rehabilitation 03/17/22 03/17/23 [facility] Therapist [address] [place] [address] Delia Avila, Pharmacist Pharmacist 06/07/[address] [address] Mago Swift, [facility] Lead Speeder Tender Sociology Adjunct Instructor - 08/05/21 Clinical Leela Jarvis, [facility] Pharmacist 07/26/22 05/15/23 [address] [facility] [place] [address] Niyah Decker, [facility] Assigned MTM 08/10/22 09/16/22 420 [facility] 812 [place] [address] documented as of this encounter
--- OUTSIDE RECORDS SUMMARY | 2022-10-21 08:48 | XMS_ITS | Encounter Summary ---
:1980 Author Organization [place] Address [address] [place] [address] Care Team Providers Name Role Phone Aydee Burton EXPEDITER CLASSROOM ASSISTANT Primary Care Provider Aydee Burton EXPEDITER CLASSROOM ASSISTANT Unavailable [phone] Louisa Hood EXPEDITER CLASSROOM ASSISTANT Unavailable [phone] Angel Hannah MD Unavailable Lesly Celaya MD Unavailable Tawana Patel MA Unavailable Unavailable Ramses Mcpherson MD Unavailable [phone] Obdulio Barrera MD Unavailable [phone] Obdulio Barrera MD Unavailable [phone] Lesvia Stanley EP Unavailable Marilia Deluna PhD Unavailable Niyah Decker [facility] Unavailable Lesvia Stanley Unavailable Austin Delia Mel [facility] Unavailable JamisonMago [facility] Unavailable Simona Leela [facility] Unavailable Encounter Details Date Type Department Care Team Description 08/05/2022 Virtual Visit [facility] Marilia Deluna, Chr onic pain syndrome (Primary Dx); Pain Management PhD Cervicogenic headache; [place] [id number] [place] [address] Cervical radiculopathy; [address] [place], [place] Neuropathic pain [address] [address] [place] [address] Social History Tobacco Use Types [...] How often do you attend adventism or bahai services? Never 08/05/2021 Do you [...] at Date Recorded Female 11/09/2021 7:53 PM DISC PAD PLATE FILLER COVID-19 Exposure Response Date Recorded In the [...] visit? Yes Patient is currently in the [facility]? yes Patient would like the video invitation sent by: Text to cell phone: [phone]} Video Start Time: 2:30 PM Additional provider [...] at other housing options with assistance of dialysis social worker - son broke his arm - engaging in stretching, sleeping a lot to address stress, cry - discussed increase use of heat even while at work for cervical pain ASSESSMENT: Mrata reports increased stress related to finances and work, which tends to increase her pain. She has been primarily coping with this increased pain by sleeping, which we discussed is not a inspecting and testing lead hand viable plan to manage her pain pro-actively. [...] we ask that you call us at [phone] at least24 hours in advance to cancel.This will allow us to offer the appointment time to another patient. ?? Multiple missed appointments may lead to dismissal from the clinic. Video-Visit Details Type of service: Video Visit Video End Time (time video stopped): 3:10 PM Originating Location (pt. Location): Home Distant Location (provider location): [facility] Mode of Communication: Video Conference via Claude Deluna PsyD LP Licensed Psychologist Outpatient Clinic Therapist [facility] Pain Management documented in this encounter Plan of Treatment Upcoming Encounters Date Type Specialty Care Team Description 10/21/2022 Office Visit Pulmonology Obdulio Barrera MD [address] [address] (Estefanía casanova) 10/25/2022 PRE VISIT ENT Charo Burton MD Previsit [address] [place] [address] (Estefanía casanova) 10/25/2022 Office Visit ENT Charo Burton MD [address] [place], [place] [address] (Wo rk) 10/25/2022 Office Visit ENT Provider, Jeannette Ent Dysphonia Heat Welder Plastics 10/25/2022 Virtual Visit Pain & Palliative Care [place] [address] [place], [place] [address] 10/28/2022 Appointment Speech Therapy Anabel Chew, PAYROLL COORDINATOR [address] [address] (Wo rk) 11/17/2022 Appointment Speech Therapy Anabel Chew, PAYROLL COORDINATOR [address] [address] (Wo rk) 12/01/2022 Office Visit Pain & [place] [address] [place], [place] [address] (Wo rk) 12/23/2022 Office Visit Neurology Colby Yeung MD [address] [place], [place] [address] (Wo rk) documented as of this encounter Goals Goal Patient Goal Associated Recent Patient-Stated? Author Type Problems Progress Attend Speciality Care Plan Establish Care 50% No Randal rn, Appointments (10/10/2022 Mago Murray, (CMM TECHNICIAN, 9:29 AM DISC PAD PLATE FILLER) [facility] Psychiatry, Counseling, and the Sleep Clinic) Note: Formatting of this note is differe nt from the original. Barriers: Appointment availability. Strengths: Recognition of need, Care Crematory Attendant rdination involvement. Patient expressed understanding of [...] on: 08/16/2022 9:45 AM Lesly Celaya MD [facility] Surgery Clinic [place] To address painful lumps in my abdomin [...] No Mago Swift well-managed. self-managed 9:29 AM DISC PAD PLATE FILLER) MMARISA W Note: Formatting of this note [...] Priority Date/Time Associated Diagnosis Comme nts [facility] Routine 08/05/2022 3:12 PM CDT [...] documented as of this encounter Care Teams Locomotive Firer Relationship Specialty Start Date End Date Aydee Burton, PCP - General Nurse Practitioner - 05/17/21 EXPEDITER CLASSROOM ASSISTANT Family [address] [place] [phone] Aydee Burton, Assigned PCP 04/28/21 EXPEDITER CLASSROOM ASSISTANT [address] [place] [address] Louisa Hood, Assigned Neuroscience 07/11/21 EXPEDITER CLASSROOM ASSISTANT Provider [address] [place], [place] [phone] [place], Assigned Sleep 08/01/21 Angel Turcios, Provider [address] [place], [place] [phone] Lesly Celaya MD Assigned Surgical 09/05/21 [address] [place] [place] [address] Tawana Patel MA [facility] Health 09/30/21 Worker Ramses Mcpherson Assigned OBGYN 11/07/21 MD Onesimo Provider [address] [place] [address] Obdulio Barrera MD Critical Care 01/24/[address] [place] [address] Obdulio Barrera, Assigned Pulmonology 02/06/[address] [place] [address] Lesvia Stanley, GHADA Cardiac Rehabilitation 03/03/22 03/03/23 [facility] Therapist [address] [place] [address] Marilia Deluna, PhD Assigned Behavioral 02/20/22 [address] [facility] [place] [address] Niyah Decker, [facility] Pharmacist Pharmacist 03/07/22 420 [facility] 812 [place], [place] [address] Lesvia Stanley, GHADA Cardiac Rehabilitation 03/17/22 03/17/23 [facility] Therapist [address] [address] Delia Avila, Pharmacist Pharmacist 06/07/22 [facility] 909 [place], [place] [address] Mago Swift, [facility] Lead Aeronautics Commission Director Poultry Veterinarian - 08/05/21 Clinical Leela Jarvis, [facility] Pharmacist 07/26/22 05/15/[address] [place] [address] [place] [id number] documented as of this encounter
--- OUTSIDE RECORDS SUMMARY | 2022-10-21 08:48 | XMS_ITS | Encounter Summary ---
:1980 Author Organization [place] Address [address] [place] [address] Care Team Providers Name Role Phone Aydee Burton SHEAR OPERATOR HAT STEAMER Primary Care Provider Aydee Burton SHEAR OPERATOR HAT STEAMER Unavailable [phone] Louisa Hood SHEAR OPERATOR HAT STEAMER Unavailable [phone] Angel Hannah MD Unavailable Lesly Celaya MD Unavailable Tawana Patel MA Unavailable Unavailable Ramses Mcpherson MD Unavailable Obdulio Barrera MD Unavailable [phone] Obdulio Barrera MD Unavailable [phone] Lesvia Stanley EP Unavailable Marilia Deluna PhD Unavailable Niyah Decker [facility] Unavailable Lesvia Stanley Unavailable AustinOhDelia Mel [facility] Unavailable [phone] JamisonMago [facility] Unavailable Leela Jarvis [facility] Unavailable Niyah Decker [facility] [...] How often do you attend islam or congregation services? Never 08/05/2021 Do you [...] at Date Recorded Female 11/09/2021 7:53 PM WEAPONS DESIGNER COVID-19 Exposure Response Date Recorded In the last 10 days, have you been in contact with No / Unsu re 08/16/2022 11:19 AM CDT someone who was confirmed or suspected to have Coronavirus/COVID-19? documented as of this encounter Plan of Treatment Upcoming Encounters Date Type Specialty Care Team Description 10/21/2022 Office Visit Pulmonology Obdulio Barrera MD 420 [facility] 276 [place], [place] [address] (Wo rk) 10/25/2022 PRE VISIT ENT Charo Burton MD Previsit [address] [place] [address] (Wo rk) 10/25/2022 Office Visit ENT Charo Burton MD [address] [place] [address] (Wo rk) 10/25/2022 Office Visit ENT Provider, Ent Dysphonia Modeling Analyst 10/25/2022 Virtual Visit Pain & Palliative [place] [address] [place], [place] [address] 10/28/2022 Appointment Speech Therapy Anabel Chew, MOLD MACHINE OPERATOR [address] 7[address]605 (Wo rk) 11/17/2022 Appointment Speech Therapy Anabel Chew, MOLD MACHINE OPERATOR [address] 845895 (Wo rk) 12/01/2022 Office Visit Pain & [place] [address] [place], [place] [address] (Wo rk) 12/23/2022 Office Visit Neurology Colby Yeung MD [address] [place] [address] (Wo rk) documented as of this encounter Goals Goal Patient Goal Associated Recent Patient-Stated? Author Type Problems Progress Attend Speciality Care Plan Establish Care 50% No Randal rn, Appointments (10/10/2022 Mago Murray, (AUTOMATION CONTROL TECHNICIAN, 9:29 AM WEAPONS DESIGNER) [facility] Psychiatry, Counseling, and the Sleep Clinic) Note: Formatting of this note is differe nt from the original. Barriers: Appointment availability. Strengths: Recognition of need, Care Internal Controls Manager rdination involvement. Patient expressed understanding of [...] [facility] [place] To address painful lumps in my abdomin [...] No Mago Swift well-managed. self-managed 9:29 AM WEAPONS DESIGNER) M, MARISA W Note: Formatting of this [...] as of this encounter Care Teams Chemical Research Worker Relationship Specialty Start Date End Date Aydee Burton, PCP - General Nurse Practitioner - 05/17/21 SHEAR OPERATOR HAT STEAMER Family [address] [place], [place] [phone] Aydee Burton, Assigned PCP 04/28/21 SHEAR OPERATOR HAT STEAMER [address] [place], [place] [phone] Louisa Hood, Assigned Neuroscience 07/11/21 SHEAR OPERATOR HAT STEAMER Provider [address] [place], [place] [phone] [place], Assigned Sleep 08/01/21 Angel Turcios, Provider [address] [place], [place] [phone] Lesly Celaya MD Assigned Surgical 09/05/21 [address] [place] [place] [address] Tawana Patel MA [facility] Health 09/30/21 Worker Ramses Mcpherson Assigned OBGYN 11/07/21 MD Onesimo Provider [address] [place] [address] Obdulio Barrera MD Critical Care 01/24/22 420 [facility] 276 [place], [place] [phone] Obdulio Barrera, Assigned Pulmonology 02/06/22 MD Provider 420 [facility] 276 [place], [place] [address] Lesvia Stanley, GHADA Cardiac Rehabilitation 03/03/22 03/03/23 [facility] Therapist [address] [address] Marilia Deluna, PhD Assigned Behavioral 02/20/22 [address] [facility] [place] [place] [address] Niyah Decker, [facility] Pharmacist Pharmacist 03/07/[address] [place] [address] 812 [place], [place] [address] Lesvia Stanley, GHADA Cardiac Rehabilitation 03/17/22 03/17/23 [facility] Therapist [address] [address] Delia Avila, Pharmacist Pharmacist 06/07/22 [facility] [address] [place] [address] Mago Swift, [facility] Lead Road Sign Installer Fish Bailer - 08/05/21 Clinical Leela Jarvis [facility] Pharmacist 07/26/22 05/15/[address] [place] [address] [address] [place] [phone] Niyah Decker, [facility] Assigned MTM 08/10/22 09/16/22 420 [facility] 812 Pharmacist [place], [place] [address] documented as of this encounter
--- OUTSIDE RECORDS SUMMARY | 2022-10-21 08:48 | XMS_ITS | Encounter Summary ---
:1980 Author Organization [place] Address [address] [place] [address] Care Team Providers Name Role Phone Aydee Burton AREA DEVELOPMENT CONSULTANT WELDING MACHINE OPERATOR GAS METAL ARC Primary Care Provider Aydee Burton AREA DEVELOPMENT CONSULTANT WELDING MACHINE OPERATOR GAS [employer]AL AR[employer] Unavailable [phone] Louisa Hood AREA DEVELOPMENT CONSULTANT WELDING MACHINE OPERATOR [employer] Unavailable [phone] Angel Hannah MD Unavailable Lesly Celaya MD Unavailable Tawana Patel MA Unavailable Unavailable Ramses Mcpherson MD Unavailable [phone] Obdulio Barrera MD Unavailable [phone] Obdulio Barrera MD Unavailable Lesvia Stanley EP Unavailable Marilia Deluna PhD Unavailable Niyah Decker [facility] Unavailable Lesvia Stanley Unavailable Delia Avila [facility] Unavailable [phone] Jamison Mago M [facility] Unavailable Leela Jarvis [facility] Unavailable Niyah Decker [facility] Unavailable Reason for Visit Reason Comments Consult Several lipomas on abd Encounter Details Date Type Department Care Team Description 08/16[facility] subcutaneous tissue [address] (Primary Dx) [address] [facility] [address] [place], [place] [phone] Social History Tobacco Use Types Packs/Day [...] How often do you attend judaism or shinto services? Never 08/05/2021 Do you [...] at Date Recorded Female 11/09/2021 7:53 PM GRADE AND CENTER MARKER COVID-19 Exposure Response Date Recorded In [...] GENITOURINARY SURGERY Tubal ligation and ablasion ??? COMPUGRAPH OPERATOR SURGERY not sure tubal ligation and [...] MD 420 [facility] 276 [place] [address] (Estefanía rk) 10/25/2022 PRE VISIT Charo Carter MD Previsit [address] [place] [address] (Estefanía casanova) 10/25/2022 Office Visit Charo Carter MD [address] [place] [phone] (Estefanía casanova) 10/25/2022 Office Visit ENT Provider, Jeannette Ent Dysphonia Drill Sergeant 10/25/2022 Virtual Visit Pain & Palliative Care Marilia Deluna[place] PhD [address] [place], [place] [address] 10/28/2022 Appointment Speech Therapy Anabel Chew, CLUSTER BORE OPERATOR [address] [place] [address] (Wo rk) 11/17/2022 Appointment Speech Therapy Anabel Chew, CLUSTER BORE OPERATOR [address] [place] [address] (Wo rk) 12/01/2022 Office Visit Pain & [place] [address] [place], [place] [address] (Wo rk) 12/23/2022 Office Visit Neurology Colby Yeung MD [address] [place] [place] [address] (Wo rk) documented as of this encounter Goals Goal Patient Goal Associated Recent Patient-Stated? Author Type Problems Progress Attend Speciality Care Plan Establish Care 50% No Randal rn, Appointments (10/10/2022 Mago Murray, (HANDLE BAR ASSEMBLER, 9:29 AM GRADE AND CENTER MARKER) [facility] Psychiatry, Counseling, and the Sleep Clinic) Note: Formatting of this note is differe nt from the original. Barriers: Appointment availability. Strengths: Recognition of need, Care Timber Skidder rdination involvement. Patient expressed understanding of goal: [...] on: 08/16/2022 9:45 AM Lesly Celaya MD [facility] Surgery [facility] To address painful lumps in [...] No Mago Swift well-managed. self-managed 9:29 AM GRADE AND CENTER MARKER) MARISA Murray W Note: Formatting of this [...] documented as of this encounter Care Teams Intellectual Property Legal Assistant Relationship Specialty Start Date End Date Aydee Burton, PCP - General Nurse Practitioner - 05/17/21 AREA DEVELOPMENT CONSULTANT WELDING MACHINE OPERATOR GAS METAL ARC Family [address] [place], [place] [address] Aydee Burton, Assigned PCP 04/28/21 AREA DEVELOPMENT CONSULTANT WELDING MACHINE OPERATOR GAS METAL ARC [address] [place], [place] [address] Louisa Hood, Assigned Neuroscience 07/11/21 AREA DEVELOPMENT CONSULTANT WELDING MACHINE OPERATOR GAS METAL ARC Provider 500 [place], [place] [address] [place], Assigned Sleep 08/01/21 Angel Turcios, Provider [address] [place], [place] [address] Lesly Cealya MD Assigned Surgical 09/05/21 [address] Provider [place], [place] [address] Tawana Patel MA [facility] 09/30/21 Worker Ramses Mcpherson Assigned OBGYN 11/07/21 MD Onesimo Provider [address] [place], [place] [address] Obdulio Barrera MD Critical Care 01/24/[address] [place] [address] 276 [place], [place] [address] Obdulio Barrera, Assigned Pulmonology 02/06/22 MD Provider [address] [place] [address]25[address] Lesvia Stanley, GHADA Cardiac Rehabilitation 03/03/22 03/03/23 [facility] Therapist [address] [place] [address] Marilia Deluna, PhD Assigned Behavioral 02/20/[address] [facility] [place] [address] Niyah Decker, [facility] Pharmacist Pharmacist 03/07/[address] [place] [address] 812 [place], [place] [address] Lesvia Stanley, GHADA Cardiac Rehabilitation 03/17/22 03/17/23 [facility] Therapist [address] [phone] Delia Avila, Pharmacist Pharmacist 06/07/22 [facility] 909 [place] [address] Mago Swift, [facility] Lead Stunt Man Purification Operator - 08/05/21 Clinical Leela Jarvis, [facility] Pharmacist 07/26/22 05/15/23 [address] [facility] [address] [phone] Niyah Decker, [facility] Assigned MTM 08/10/22 09/16/22 420 [facility] 812 Pharmacist [place], [place] [phone] documented as of this encounter
--- OUTSIDE RECORDS SUMMARY | 2022-10-21 08:48 | XMS_ITS | Encounter Summary ---
:1980 Author Organization [place] Address [address] [place] [address] Care Team Providers Name Role Phone Aydee Burton SUPERVISOR METER SHOP ELECTRICAL ACCESSORIES I ASSEMBLER Primary Care Provider [phone] Aydee Burton SUPERVISOR METER SHOP ELECTRICAL ACCESSORIES I ASSEMBLER Unavailable [phone] Louisa Hood SUPERVISOR METER SHOP ELECTRICAL ACCESSORIES I ASSEMBLER Unavailable [phone] Angel Hannah MD Unavailable Lesly Celaya MD Unavailable Tawana Patel MA Unavailable Unavailable Ramses Mcpherson MD Unavailable Obdulio Barrera MD Unavailable [phone] Obdulio Barrera MD Unavailable [phone] Lesvia Stanley EP Unavailable Marilia Deluna PhD Unavailable Niyah Decker [facility] Unavailable Lesvia Stanley Unavailable AustinOhDelia Mel [facility] Unavailable [phone] JamisonMago [facility] Unavailable Simona Leela [facility] Unavailable Niyah Decker [facility] Unavailable Reason for Visit Rehab Therapy Physical Therapy (Routine: Next available opening) - Pending Review Specialty Diagnoses / Procedures Referred By Contact Refer red To Contact Diagnoses Tension headache Cervicogenic headache Cervicalgia Colby Yeung MD [address] [place] [address] Referral ID Status Reason Start Date Expiration Date Visits V isits Requested Authorized [id number] Pending 06/30/2022 06/30/2023 1 1 Review Encounter Details Date Type Department Care Team Description 08/12/2022 Therapy Visit [facility] Melanie Reardon in (Primary Rehabilitation Services Una Murray, PT Dx) [place] [facility] [address] [address] [address] [place] [address] (Work) [phone] Social History Tobacco Use Types Packs/Day Years [...] often do you attend jehovah's witness or shinto services? 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/2021 7:53 PM COLLEGE COACH COVID-19 Exposure Response Date Recorded In the last 10 days, have you been in contact with No / Unsu re 08/12/2022 2:34 PM CDT someone who was confirmed or suspected to have Coronavirus/COVID-19? documented as of this encounter Plan of Treatment Upcoming Encounters Date Type Specialty Care Team Description 10/21/2022 Office Visit Pulmonology Obdulio Barrera MD 420 [facility] 276 [place] [address] (Wo rk) 10/25/2022 PRE VISIT ENT Charo Burton MD Previsit [address] [place] [address] [phone] (Wo rk) 10/25/2022 Office Visit Charo Carter MD [address] [place] [phone] (Wo rk) 10/25/2022 Office Visit ENT Provider, Jeannette Ent Dysphonia Helpdesk Manager 10/25/2022 Virtual Visit Pain & Palliative [place] [address] [place], [place] [address] 10/28/2022 Appointment Speech Therapy Anabel Chew, GEODETIC TECHNICIAN [facility] 516 [facility] 396 [place], [place] [address] (Wo rk) 11/17/2022 Appointment Speech Therapy Anabel Chew, GEODETIC TECHNICIAN [place] [phone] [facility] 396 [place], [place] [address] (Wo rk) 12/01/2022 Office Visit Pain & [place] [address] [place], [place] [address] (Wo rk) 12/23/2022 Office Visit Neurology Colby Yeung MD [address] [place] [address] (Wo rk) documented as of this encounter Goals Goal Patient Goal Associated Recent Patient-Stated? Author Type Problems Progress Attend Speciality Care Plan Establish Care 50% No Randal rn, Appointments (10/10/2022 Mago Murray, (SPRINKLER FITTER APPRENTICE, 9:29 AM COLLEGE COACH) [facility] Psychiatry, Counseling, and the Sleep Clinic) Note: Formatting of this note is differe nt from the original. Barriers: Appointment availability. Strengths: Recognition of need, Care Computer Operations Specialist rdination involvement. Patient expressed understanding of [...] on: 08/16/2022 9:45 AM Lesly Celaya MD [facility] Surgery [facility] To address painful lumps in my [...] Mago Swift well-managed. self-managed 9:29 AM COLLEGE COACH) MARISA Murray Note: Formatting of this note [...] nts [place] MANUAL THERAPY, EA 15 Routine 08/12/2022 3:05 PM CDT Neck p ain MIN [place] THERAPEUTIC Routine 08/12/2022 3:05 PM CDT Neck [...] as of this encounter Care Teams Enterprise Application Developer Relationship Specialty Start Date End Date Aydee Burton, PCP - General Nurse Practitioner - 05/17/21 SUPERVISOR METER SHOP ELECTRICAL ACCESSORIES I ASSEMBLER Family [address] [place], [place] [address] Aydee Burton, Assigned PCP 04/28/21 SUPERVISOR METER SHOP [facility] 4151 [place], [place] [address] Louisa Hood, Assigned Neuroscience 07/11/21 SUPERVISOR METER SHOP ELECTRICAL ACCESSORIES I ASSEMBLER Provider 500 [facility] [place] [address] [place], Assigned Sleep 08/01/21 Angel Turcios, Provider [address] [place], [place] [address] Lesly Celaya MD Assigned Surgical 09/05/[address] Provider [place], [place] [address] Tawana Patel MA [facility] 09/30/21 Worker Ramses Mcpherson Assigned OBGYN 11/07/21 MD Onesimo Provider [address] [place] [address] Obdulio Barrera MD Critical Care 01/24/22 MD 420 [facility] 276 [place], [place] [address] Obdulio Barrera, Assigned Pulmonology 02/06/22 Provider 420 [facility] 276 [place], [place] [address] Lesvia Stanley, GHADA Cardiac Rehabilitation 03/03/22 03/03/23 [facility] Therapist [address] [facility] [place], [place] [address] Marilia Deluna, PhD Assigned Behavioral 02/20/22 [address] [facility] Provider [place], [place] [address] Niyah Decker, [facility] Pharmacist Pharmacist 03/07/[address] [place] [address] 812 [place], [place] [address] Lesvia Stanley, GHADA Cardiac Rehabilitation 03/17/22 03/17/23 [facility] Therapist [address] [address] Delia Avila, Pharmacist Pharmacist 06/07/22 [facility] 909 [place], [place] [phone] Mago Swift, [facility] Lead Building Dismantler Sales Operations Assistant - 08/05/21 Clinical Leela Jarvis, [facility] Pharmacist 07/26/22 05/15/23 3305 [facility] [address] [phone] Niyah Decker, [facility] Assigned MTM 08/10/22 09/16/22 420 [facility] 812 [place] [address] documented as of this encounter
--- OUTSIDE RECORDS SUMMARY | 2022-10-21 08:48 | XMS_ITS | Encounter Summary ---
:1980 Author Organization [place] Address [address] [place] [address] Care Team Providers Name Role Phone Aydee Nam CHEMISTRY INSTRUCTOR FEED PREPARATION OPERATOR Primary Care Provider Aydee Nam CHEMISTRY INSTRUCTOR FEED PREPARATION OPERATOR Unavailable [phone] Louisa Hood CHEMISTRY INSTRUCTOR FEED PREPARATION OPERATOR Unavailable [phone] Angel Hannah MD Unavailable Lesly Celaya MD Unavailable Tawana Patel MA Unavailable Unavailable Ramses Mcpherson MD Unavailable [phone] Obdulio Barrera MD Unavailable [phone] Obdulio Barrera MD Unavailable Lesvia Stnaley EP Unavailable Marilia Deluna PhD Unavailable Niyah Decker [facility] Unavailable Lesvia Stanley Unavailable MandDelia virgen [facility] Unavailable [phone] JamisonMago [facility] Unavailable Rubens Jarvisaela [facility] Unavailable Niyah Decker [facility] Unavailable Reason for Visit Reason Onset Date Comments Schedule Surgery 08/16/2022 EXCISION MASSES BACK , ABDOMEN, RIGHT LOWER EXTREMITY MAC PT INS TOT HAVE H&P WITH DR NAM 60 MIN REQ PA ASSIST S NMS Encounter Details Date Type Department Care Team Description 08/16/2022 Telephone [facility] Maggy Celaya MD Schedule Surgery Surgery Clinic [address] (EXCISION MASSES BACK, [place] [address] ABDOMEN, RIGHT LOWER [address] EXTREMITY MAC PT INS [address] TOT HAVE H&P [place] IHSAN Grey 60 [place] [address] ASSIST JLS NMS ) [phone] Social History Tobacco Use Types Packs/Day Years [...] How often do you attend mandaeism or muslim services? Never 08/05/2021 Do you [...] at Date Recorded Female 11/09/2021 7:53 PM HOGSHEAD STRIPPER COVID-19 Exposure Response Date Recorded In [...] 10/21/2022 Office Visit Pulmonology Obdulio Barrera MD [address] [place] [address] (Wo rk) 10/25/2022 PRE VISIT Charo Carter MD Previsit [address] [place] [address] (Estefanía rk) 10/25/2022 Office Visit Charo Carter MD [address] [place] [address] (Wo rk) 10/25/2022 Office Visit ENT Provider, Jeannette Ent Dysphonia Casserole Preparer 10/25/2022 Virtual Visit Pain & Palliative Care [place] [address] [place], [place] [address] 10/28/2022 Appointment Speech Therapy Anabel Chew, HOUSESMITH [address] [address] (Wo rk) 11/17/2022 Appointment Speech Therapy Anabel Chew, CELINE [address] [phone] (Wo rk) 12/01/2022 Office Visit Pain & [place] [address] [place], [place] [address] (Wo rk) 12/23/2022 Office Visit Neurology Colby Yeung MD [address] [place], [place] [address] (Wo rk) documented as of this encounter Goals Goal Patient Goal Associated Recent Patient-Stated? Author Type Problems Progress Attend Speciality Care Plan Establish Care 50% No Randal rn, Appointments (10/10/2022 Mago Murray, (HEAD SAWYER AUTOMATIC, 9:29 AM HOGSHEAD STRIPPER) [facility] Psychiatry, Counseling, and the Sleep Clinic) Note: Formatting of this note is differe nt from the original. Barriers: Appointment availability. Strengths: Recognition of need, Care Clerical Supervisor rdination involvement. Patient expressed understanding of [...] [facility] [place] To address painful lumps in my abdomin [...] No Mago Swift well-managed. self-managed 9:29 AM HOGSHEAD STRIPPER) MARISA Murray W Note: Formatting of this [...] documented as of this encounter Care Teams Gang Vibrator Operator Relationship Specialty Start Date End Date Aydee Nam, PCP - General Nurse Practitioner - 05/17/21 CHEMISTRY INSTRUCTOR [facility] Family [address] [place] [address] Aydee Nam, Assigned PCP 04/28/21 CHEMISTRY INSTRUCTOR FEED PREPARATION OPERATOR [address] [place], [place] [address] ErwinLouisa Grisel, Assigned Neuroscience 07/11/21 CHEMISTRY INSTRUCTOR FEED PREPARATION OPERATOR Provider 500 [place], [place] [phone] [place], Assigned Sleep 08/01/21 Angel Turcios, Provider [address] [facility] 106 [place], [place] [phone] Lesly Celaya MD Assigned Surgical 09/05/21 [address] [facility] Provider [place], [place] [phone] Tawana Patel [facility] 09/30/21 Worker Ramses Mcpherson Assigned OBGYN 11/07/21 MD Onesimo Provider [address] [place], [place] [phone] Obdulio Barrera MD Critical Care 01/24/[address] [place] [address]39[address] Obdulio Barrera, Assigned Pulmonology 02/06/[address] [place] [address] Lesvia Stanley EP Cardiac Rehabilitation 03/03/22 03/03/23 [facility] Therapist [address] [place] [address] Marilia Deluna, PhD Assigned Behavioral 02/20/22 [address] [facility] [address] Niyah Decker, [facility] Pharmacist Pharmacist 03/07/22 420 [facility] 812 [place], [place] [address] Lesvia Stanley, GHADA Cardiac Rehabilitation 03/17/22 03/17/23 [facility] Therapist [address] [place] [place] [address] Delia Avila, Pharmacist Pharmacist 06/07/22 [facility] 909 [place], [place] [address] Mago Swift, [facility] Lead Press Operator Heavy Duty Rn Case Management - 08/05/21 Clinical Leela Jarvis [facility] Pharmacist 07/26/22 05/15/23 3305 [facility] [address] [phone] Niyah Decker, [facility] Assigned MTM 08/10/22 09/16/22 420 [facility] 812 Pharmacist [place], [place] [address] documented as of this encounter
--- OUTSIDE RECORDS SUMMARY | 2022-10-21 08:48 | XMS_ITS | Encounter Summary ---
:1980 Author Organization [place] Address [address] [place] [address] Care Team Providers Name Role Phone Aydee Burton CHIEF INTERNAL AUDITOR KNOWLEDGE MANAGEMENT ADVISOR Primary Care Provider Aydee Burton CHIEF INTERNAL AUDITOR KNOWLEDGE MANAGEMENT ADVISOR Unavailable [phone] Louisa Hood CHIEF INTERNAL AUDITOR KNOWLEDGE MANAGEMENT ADVISOR Unavailable [phone] Angel Hannah MD Unavailable Lesly Celaya MD Unavailable Tawana Patel MA Unavailable Unavailable Ramses Mcpherson MD Unavailable [phone] Obdulio Barrera MD Unavailable [phone] Obdulio Barrera MD Unavailable [phone] Lesvia Stanley EP Unavailable Marilia Deluna PhD Unavailable Niyah Decker [facility] Unavailable Lesvia Stanley Unavailable AustinOhDelia Mel [facility] Unavailable [phone] JamisonMago [facility] Unavailable SimonaLeela [facility] Unavailable Niyah Decker [facility] Unavailable Marvin Miranda MD Unavailable Marvin Miranda MD Unavailable Joseph Clari Banks [facility] Unavailable [phone] Reason for Visit Reason Onset Date Comments Refill Request 08/11/2022 ondansetron (ZOFRAN ODT) 4 MG ODT tab Encounter Details Date Type Department Care Team Description 08/11/2022 Refill [facility] BurtonAydeelotte, Refill Request [facility] KNOWLEDGE MANAGEMENT ADVISOR (ondansetron (ZOFRAN [address] [place] [address] ODT) 4 MG ODT tab ) [place] [address] [place], [place] [phone] (Wo rk) [id number] [phone] Social History Tobacco Use Types Packs/Day Years [...] How often do you attend yazidism or yarsanism services? Never 08/05/2021 Do you [...] at Date Recorded Female 11/09/2021 7:53 PM TRANSIT PROOF MACHINE OPERATOR COVID-19 Exposure Response Date Recorded In the last 10 days, have you been in contact with No / Unsu re 08/12/2022 2:34 PM CDT someone who was confirmed or suspected to have Coronavirus/COVID-19? documented as of this encounter Miscellaneous Notes Telephone Encounter - Keren Dong RN - 08/12/2022 8:55 AM CDT Prescription approved per [facility] Refill Protocol. Keren Dong RN documented in this encounter Plan of Treatment Upcoming Encounters Date Type Specialty Care Team Description 10/21/2022 Office Visit Pulmonology Obdulio Barrera MD [address] [place] [address] [phone] (Wo rk) 10/25/2022 PRE VISIT ENT Charo Burton MD Previsit [address] [place] [address] [phone] (Wo rk) 10/25/2022 Office Visit Charo Carter MD [address] [place] [address] [phone] (Estefanía casanova) 10/25/2022 Office Visit ENT Provider, Jeannette Ent Dysphonia Lead Quality Technician 10/25/2022 Virtual Visit Pain & Palliative Care Marilia Deluna, PhD [address] [place], [place] [address] 10/28/2022 Appointment Speech Therapy Anabel Chew SLP [address] [phone] (Wo rk) 11/17/2022 Appointment Speech Therapy Anabel Chew SLP [address] 939555 (Wo rk) 12/01/2022 Office Visit Pain & [place] [address] [place], [place] [address] (Wo rk) 12/23/2022 Office Visit Neurology Colby Yeung MD [address] [place], [place] [address] (Wo rk) documented as of this encounter Goals Goal Patient Goal Associated Recent Patient-Stated? Author Type Problems Progress Attend Speciality Care Plan Establish Care 50% No Randal rn, Appointments (10/10/2022 Mago Murray, (COMMODITY DIRECTOR, 9:29 AM TRANSIT PROOF MACHINE OPERATOR) [facility] Psychiatry, Counseling, and the Sleep Clinic) Note: Formatting of this note is differe nt from the original. Barriers: Appointment availability. Strengths: Recognition of need, Care Local Superintendent rdination involvement. Patient expressed understanding of [...] on: 08/16/2022 9:45 AM Lesly Celaya MD [facility] Surgery [facility] To address [...] No Mago Swift well-managed. 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 documented in this encounter Additional Health Concerns Problem Noted Date Establish Care 07/05/2022 Chronic Pain is not self-managed 07/05/2022 Assessment Noted Time PHQ-9 Depression Total Score: 16 06/24/2022 9:31 AM CD T documented as of this encounter Care Teams Desizing Pad Operator Relationship Specialty Start Date End Date Aydee Burton PCP - General Nurse Practitioner - 05/17/21 ELADIO Mendez KNOWLEDGE MANAGEMENT ADVISOR Family [address] [place], [place] [phone] Aydee Burton Assigned PCP 04/28/21 ELADIO Mendez KNOWLEDGE MANAGEMENT ADVISOR [address] [place], [place] 0[address] Louisa Hood Assigned Neuroscience 07/11/21 ELADIO Recinos KNOWLEDGE MANAGEMENT ADVISOR Provider [address] [facility] [place] [address] [place], Assigned Sleep 08/01/21 Angel Turcios, Provider [address] [place] [address] Lesly Celaya MD Assigned Surgical 09/05/21 [address] [place] [address] T[facility]ana PatelCommunity Health 09/30/21 MA Worker Ramses Mcpherson Assigned OBGYN 11/07/21 MD Onesimo Provider [address] [place] [address] Obdulio Barrera MD Critical Care 01/24/22 MD Leo 420 [facility] 276 [place] [address] Obdulio Barrera Assigned Pulmonology 02/06/22 MD Leo Provider 420 [facility] 276 [place], [place] [address] Lesvia Stanley, Cardiac Rehabilitation 03/03/22 03/03/23 EP Therapist [facility] [address] [facility] [address] [id number] Marilia Deluna, Assigned Behavioral 02/20/22 [facility] Health Provider [address] [place] [phone] Niyah Decker, [facility] Pharmacist Pharmacist 03/07/[address] [place] [address] [address] [place], [place] [address] Lesvia Stanley, Cardiac Rehabilitation 03/17/22 03/17/23 EP Therapist [facility] [address] [phone] Delia Avila Pharmacist Pharmacist 06/07/22 Mel [facility] [address] [place], [place] [address] Mago Swift, Lead Darkroom Worker Meter Reading Clerk - 08/05/21 [facility] Clinical Leela Jarvis, [facility] Pharmacist 07/26/22 05/15/[address] [facility] [address] [place] [phone] Niyah Decker [facility] Assigned MTM 08/10/22 09/16/22 [address] [facility] Pharmacist [address] [place], [place] [address] Marvin Miranda MD Gastroenterology 09/21/[address] [place], [place] [phone] Marvin Miranda, Assigned 10/01/22 Gastroenterology [address] [facility] Provider [address] [place], [place] [address] Clari Ruiz Assigned MTM 09/17/22 Jocelyn [facility] Pharmacist [address] [place] [address] documented as of this encounter
--- OUTSIDE RECORDS SUMMARY | 2022-10-21 08:48 | XMS_ITS | Encounter Summary ---
:1980 Author Organization [place] Address [address] [place] [address] Care Team Providers Name Role Phone Aydee Burton INSTRUMENT CHECKER TROPHY ASSEMBLER Primary Care Provider Aydee Burton INSTRUMENT CHECKER TROPHY ASSEMBLER Unavailable [phone] Louisa Hood INSTRUMENT CHECKER TROPHY ASSEMBLER Unavailable [phone] Angel Hannah MD Unavailable Lesly Celaya MD Unavailable Tawana Patel MA Unavailable Unavailable Ramses Mcpherson MD Unavailable [phone] Obdulio Barrera MD Unavailable [phone] Obdulio Barrera MD Unavailable [phone] Lesvia Stanley EP Unavailable Marilia Deluna PhD Unavailable Niyah Decker [facility] Unavailable Lesvia Stanley Unavailable MandDelia virgen [facility] Unavailable [phone] Mago Swift [facility] Unavailable SimonaLeela [facility] Unavailable Encounter Details Date [...] How often do you attend christianity or restoration services? Never 08/05/2021 Do you [...] at Date Recorded Female 11/09/2021 7:53 PM POT LINING SUPERVISOR COVID-19 Exposure Response Date Recorded In the last 10 days, have you been in contact with No / Unsu re 08/01/2022 1:04 PM CDT someone who was confirmed or suspected to have Coronavirus/COVID-19? documented as of this encounter Plan of Treatment Upcoming Encounters Date Type Specialty Care Team Description 10/21/2022 Office Visit Pulmonology Obdulio Barrera MD 420 [facility] 276 [place], [place] [address] (Wo rk) 10/25/2022 PRE VISIT ENT Charo Burton MD Previsit [address] [place] [address] [phone] (Wo rk) 10/25/2022 Office Visit ENT Charo Burton MD [address] [place] [address] [phone] (Wo rk) 10/25/2022 Office Visit ENT Provider, Ent Dysphonia Bounty Trapper 10/25/2022 Virtual Visit Pain & Palliative [place] [address] [place], [place] [address] 10/28/2022 Appointment Speech Therapy Anabel Chew, TECHNICAL PROJECT COORDINATOR [address] [place], [place] [address] (Wo rk) 11/17/2022 Appointment Speech Therapy Anabel Chew, TECHNICAL PROJECT COORDINATOR [address] [place], [place] [address] (Wo rk) 12/01/2022 Office Visit Pain & [place] [address] [place], [place] [address] (Wo rk) 12/23/2022 Office Visit Neurology Colby Yeung MD [address] [place] [address] (Wo rk) documented as of this encounter Goals Goal Patient Goal Associated Recent Patient-Stated? Author Type Problems Progress Attend Speciality Care Plan Establish Care 50% No Randal rn, Appointments (10/10/2022 Mago Murray, (DANCE MASTER, 9:29 AM POT LINING SUPERVISOR) SOCIAL WORK LECTURER Psychiatry, Counseling, and the Sleep Clinic) Note: Formatting of this note is differe nt from the original. Barriers: Appointment availability. Strengths: Recognition of need, Care Engineering Drawings Checker rdination involvement. Patient expressed understanding of goal: [...] Celaya MD [facility] Surgery [facility] To address painful lumps in [...] No Mago Swift well-managed. self-managed 9:29 AM POT LINING SUPERVISOR) MARISA Murray Note: Formatting of this [...] as of this encounter Care Teams Rn Cardiac Relationship Specialty Start Date End Date Aydee Burton, PCP - General Nurse Practitioner - 05/17/21 INSTRUMENT CHECKER TROPHY ASSEMBLER Family [address] [place] [address] [phone] Aydee Burton, Assigned PCP 04/28/21 INSTRUMENT CHECKER TROPHY ASSEMBLER [address] [place] [address] Louisa Hood, Assigned Neuroscience 07/11/21 INSTRUMENT CHECKER TROPHY ASSEMBLER Provider [address] [place], [place] [phone] [place], Assigned Sleep 08/01/21 Angel Turcios, Provider [address] [place], [place] [phone] Lesly Celaya MD Assigned Surgical 09/05/21 [address] [place] [address] Tawana Patel MA [facility] Health 09/30/21 Worker Ramses Mcpherson Assigned OBGYN 11/07/21 MD Onesimo Provider [address] [place] [address] Obdulio Barrera MD Critical Care 01/24/[address] [place] [address] 276 [place], [place] [address] Obdulio Barrera, Assigned Pulmonology 02/06/22 MD Provider 420 [facility] 276 [place] [address] Lesvia Stanley, GHADA Cardiac Rehabilitation 03/03/22 03/03/23 [facility] Therapist [address] [id number] Marilia Deluna, PhD Assigned Behavioral 02/20/22 [address] [facility] [place] [address] Niyah Decker, [facility] Pharmacist Pharmacist 03/07/22 420 [facility] 812 [place], [place] [address] Lesvia Stanley, GHADA Cardiac Rehabilitation 03/17/22 03/17/23 [facility] Therapist [address] [phone] Delia Avila, Pharmacist Pharmacist 06/07/22 [facility] 909 [place], [place] [address] Mago Swift, [facility] Lead Waxing Machine Operator Netting Inspector - 08/05/21 Clinical Leela Jarvis, [facility] Pharmacist 07/26/22 05/15/23 [address] [facility] [address] [place] [phone] documented as of this encounter
--- OUTSIDE RECORDS SUMMARY | 2022-10-21 08:48 | XMS_ITS | Encounter Summary ---
:1980 Author Organization [place] Address [address] [place] [address] Care Team Providers Name Role Phone Aydee Burton SENIOR COMPENSATION CONSULTANT ELASTIC TAPE INSERTER Primary Care Provider Aydee Burton SENIOR COMPENSATION CONSULTANT ELASTIC TAPE INSERTER Unavailable [phone] Louisa Hood SENIOR COMPENSATION CONSULTANT ELASTIC TAPE INSERTER Unavailable [phone] Angel Hannah MD Unavailable Lesly Celaya MD Unavailable Tawana Patel MA Unavailable Unavailable Ramses Mcpherson MD Unavailable [phone] Obdulio Barrera MD Unavailable [phone] Obdulio Barrera MD Unavailable [phone] Lesvia Stanley EP Unavailable Marilia Deluna PhD Unavailable Niyah Decker [facility] Unavailable Lesvia Stanley Unavailable AustinOhDelia Mel [facility] Unavailable [phone] JamisonMago [facility] Unavailable Leela Jarvis [facility] Unavailable Niyah Decker [facility] Unavailable Encounter Details Date Type [...] How often do you attend alevism or adventism services? Never 08/05/2021 Do you [...] at Date Recorded Female 11/09/2021 7:53 PM UTILIZATION REVIEW RN COVID-19 Exposure Response Date Recorded In the last 10 days, have you been in contact Unable to asse ss 08/15/2022 8:31 AM CDT with someone who was confirmed or suspected to have Coronavirus/COVID-19? documented as of this encounter Plan of Treatment Upcoming Encounters Date Type Specialty Care Team Description 10/21/2022 Office Visit Pulmonology Obdulio Barrera MD 420 [facility] 276 [place], [place] [address] (Wo rk) 10/25/2022 PRE VISIT ENT Charo Burton MD Previsit [address] [place] [address] (Wo rk) 10/25/2022 Office Visit ENT Charo Burton MD [address] [place] [address] (Wo rk) 10/25/2022 Office Visit ENT Provider, Ent Dysphonia Mobile Home Installer 10/25/2022 Virtual Visit Pain & Palliative [place] [address] [place], [place] [address] 10/28/2022 Appointment Speech Therapy Anabel Chew, MANAGER DIABETES [address] [phone] (Wo rk) 11/17/2022 Appointment Speech Therapy Anabel Chew, MANAGER DIABETES [address] 349345 (Wo rk) 12/01/2022 Office Visit Pain & [place] [address] [place], [place] [address] (Wo rk) 12/23/2022 Office Visit Neurology Colby Yeung MD [address] [place] [address] (Wo rk) documented as of this encounter Goals Goal Patient Goal Associated Recent Patient-Stated? Author Type Problems Progress Attend Speciality Care Plan Establish Care 50% No Randal rn, Appointments (10/10/2022 Mago Murray, (GEAR HOBBER SET UP OPERATOR, 9:29 AM UTILIZATION REVIEW RN) [facility] Psychiatry, Counseling, and the Sleep Clinic) Note: Formatting of this note is differe nt from the original. Barriers: Appointment availability. Strengths: Recognition of need, Care Bonding And Composite Fabricator rdination involvement. Patient expressed understanding of goal: [...] MD [facility] To address painful lumps in my abdomin [...] No Mago Swift well-managed. self-managed 9:29 AM UTILIZATION REVIEW RN) MMARISA W Note: Formatting of this note [...] documented as of this encounter Care Teams Rail Transportation Operator Relationship Specialty Start Date End Date Aydee Burton, PCP - General Nurse Practitioner - 05/17/21 SENIOR COMPENSATION CONSULTANT ELASTIC TAPE INSERTER Family [address] [place] [address] Aydee Burton, Assigned PCP 04/28/21 SENIOR COMPENSATION CONSULTANT ELASTIC TAPE INSERTER [address] [place], [place] [phone] Louisa Hood, Assigned Neuroscience 07/11/21 SENIOR COMPENSATION CONSULTANT ELASTIC TAPE INSERTER Provider [address] [place], [place] [phone] [place], Assigned Sleep 08/01/21 Angel Turcios, Provider [address] [place], [place] [phone] Lesly Celaya MD Assigned Surgical 09/05/21 [address] [place] [address] Tawaan Patel MA [facility] Health 09/30/21 Worker Ramses Mcpherson Assigned OBGYN 11/07/21 MD Onesimo Provider [address] [place] [address] Obdulio Barrera MD Critical Care 01/24/22 420 [facility] 276 [place], [place] [phone] Obdulio Barrera, Assigned Pulmonology 02/06/22 MD Provider 420 [facility] 276 [place], [place] [address] Lesvia Stanley, GHADA Cardiac Rehabilitation 03/03/22 03/03/23 [facility] Therapist [address] [place] [address] Marilia Deluna, PhD Assigned Behavioral 02/20/22 [address] [facility] Health Provider [place], [place] 6[address] Niyah Decker, [facility] Pharmacist Pharmacist 03/07/[address] [place] [address] 812 [place], [place] [address] Lesvia Stanley, GHADA Cardiac Rehabilitation 03/17/22 03/17/23 [facility] Therapist [address] [address] Delia Avila, Pharmacist Pharmacist 06/07/22 [facility] [address] [place] [address] [phone] Mago Swift, [facility] Lead Com Writer Waxer - 08/05/21 Clinical Leela Jarvis [facility] Pharmacist 07/26/22 05/15/[address] [place] [address] [address] [place], [place] [phone] Niyah Decker, [facility] Assigned MTM 08/10/22 09/16/22 420 [facility] 812 Pharmacist [place], [place] [address] documented as of this encounter
--- OUTSIDE RECORDS SUMMARY | 2022-10-21 08:48 | XMS_ITS | Encounter Summary ---
:1980 Author Organization [place] Address [address] [place] [address] Care Team Providers Name Role Phone Aydee Burton TALENT SOURCER TRAINING ADMINISTRATOR Primary Care Provider [phone] Aydee Burton TALENT SOURCER TRAINING ADMINISTRATOR Unavailable [phone] Louisa Hood TALENT SOURCER TRAINING ADMINISTRATOR Unavailable [phone] Angel Hannah MD Unavailable Lesly Celaya MD Unavailable Tawana Patel MA Unavailable Unavailable Ramses Mcpherson MD Unavailable [phone] Obdulio Barrera MD Unavailable [phone] Obdulio Barrera MD Unavailable [phone] Lesvia Stanley EP Unavailable Marilia Deluna PhD Unavailable Niyah Decker [facility] Unavailable Lesvia Stanley Unavailable MandDelia virgen [facility] Unavailable [phone] Mago Swift [facility] Unavailable SimonaLeela [facility] Unavailable Encounter Details Date Type [...] How often do you attend rastafarian or quaker services? Never 08/05/2021 Do you [...] at Date Recorded Female 11/09/2021 7:53 PM TACKING STITCH REMOVER COVID-19 Exposure Response Date Recorded In the last 10 days, have you been in contact with No / Unsu re 08/04/2022 2:27 PM CDT someone who was confirmed or suspected to have Coronavirus/COVID-19? documented as of this encounter Plan of Treatment Upcoming Encounters Date Type Specialty Care Team Description 10/21/2022 Office Visit Pulmonology Obdulio Barrera MD 420 [facility] 276 [place], [place] [address] (Wo rk) 10/25/2022 PRE VISIT ENT Charo Burton MD Previsit [address] [place] [address] [phone] (Wo rk) 10/25/2022 Office Visit ENT Charo Burton MD [address] [place] [address] [phone] (Wo rk) 10/25/2022 Office Visit ENT Provider, Ent Dysphonia Industry Analyst 10/25/2022 Virtual Visit Pain & Palliative [place] [address] [place], [place] [address] 10/28/2022 Appointment Speech Therapy Anabel Chew, MARKETING REPORTING ANALYST [address] [place], [place] [address] (Wo rk) 11/17/2022 Appointment Speech Therapy Anabel Chew, MARKETING REPORTING ANALYST [address] [place], [place] [address] (Wo rk) 12/01/2022 Office Visit Pain & [place] [address] [place], [place] [address] (Wo rk) 12/23/2022 Office Visit Neurology Colby Yeung MD [address] [place] [address] (Wo rk) documented as of this encounter Goals Goal Patient Goal Associated Recent Patient-Stated? Author Type Problems Progress Attend Speciality Care Plan Establish Care 50% No Randal rn, Appointments (10/10/2022 Mago Murray, (ARCH CUSHION SKIVING MACHINE OPERATOR, 9:29 AM TACKING STITCH REMOVER) ENVIRONMENTAL HEALTH AND SAFETY LEADER Psychiatry, Counseling, and the Sleep Clinic) Note: Formatting of this note is differe nt from the original. Barriers: Appointment availability. Strengths: Recognition of need, Care Program Counselor rdination involvement. Patient expressed understanding of goal: [...] on: 08/16/2022 9:45 AM Lesly Celaya MD [facility] Surgery [facility] To address painful lumps in [...] No Mago Swift well-managed. self-managed 9:29 AM TACKING STITCH REMOVER) MARISA Murray Note: Formatting of this note [...] documented as of this encounter Care Teams Chronometer Tester Relationship Specialty Start Date End Date Aydee Burton, PCP - General Nurse Practitioner - 05/17/21 TALENT SOURCER TRAINING ADMINISTRATOR Family [address] [place] [address] [phone] Aydee Burton, Assigned PCP 04/28/21 TALENT SOURCER TRAINING ADMINISTRATOR [address] [place] [address] Louisa Hood, Assigned Neuroscience 07/11/21 TALENT SOURCER TRAINING ADMINISTRATOR Provider [address] [place], [place] [phone] [place], Assigned Sleep 08/01/21 Angel Turcios, Provider [address] [place], [place] [phone] Lesly Celaya MD Assigned Surgical 09/05/21 [address] [place] [place] [address] Tawana Patel MA [facility] Health 09/30/21 Worker Ramses Mcpherson Assigned OBGYN 11/07/21 MD Onesimo Provider [address] [place] [address] Obdulio Barrera MD Critical Care 01/24/[address] [place] [address] 276 [place], [place] [address] Obdulio Barrera, Assigned Pulmonology 02/06/22 MD Provider 420 [facility] 276 [place] [address] Lesvia Stanley, GHADA Cardiac Rehabilitation 03/03/22 03/03/23 [facility] Therapist [address] [id number] Marilia Deluna, PhD Assigned Behavioral 02/20/22 [address] [facility] [place] [address] Niyah Decker, [facility] Pharmacist Pharmacist 03/07/22 420 [facility] 812 [place], [place] [address] Lesvia Stanley, GHADA Cardiac Rehabilitation 03/17/22 03/17/23 [facility] Therapist [address] [phone] Delia Avila, Pharmacist Pharmacist 06/07/22 [facility] 909 [place], [place] [address] Mago Swift, [facility] Lead Jukebox Coin Collector Manager Wound Care - 08/05/21 Clinical Leela Jarvis, [facility] Pharmacist 07/26/22 05/15/23 3[address] [facility] [address] [place] [phone] documented as of this encounter
--- OUTSIDE RECORDS SUMMARY | 2022-10-21 08:49 | XMS_ITS | Encounter Summary ---
:1980 Author Organization [place] Address [address] [place] [address] Care Team Providers Name Role Phone Aydee Burton CLINICAL LABORATORY MANAGER SECOND HAND PAPER MACHINE Primary Care Provider Aydee Burton CLINICAL LABORATORY MANAGER SECOND HAND PAPER MACHINE Unavailable [phone] Louisa Hood CLINICAL LABORATORY MANAGER SECOND HAND PAPER MACHINE Unavailable [phone] Angel Hannah MD Unavailable Lesly Celaya MD Unavailable Tawana Patel MA Unavailable Unavailable Ramses Mcpherson MD Unavailable [phone] Obdulio Barrera MD Unavailable [phone] Obdulio Barrera MD Unavailable [phone] Lesvia Stanley EP Unavailable Marilia Deluna PhD Unavailable Niyah Decker [facility] Unavailable Lesvia Stanley Unavailable Delia Avila [facility] Unavailable [phone] [facility] Unavailable Niyah Decker [facility] Unavailable Encounter Details Date Type Department Care Team Description 07/14/2022 Virtual Visit [facility] Marilia Deluna, Chr onic pain syndrome (Primary Dx); Pain Management PhD Cervicogenic headache; [place] [address] [address] Cervical radiculopathy; [address] [place], [place] Neuropathic pain [address] [address] [place] [address] Social History Tobacco Use Types [...] How often do you attend spiritism or yarsanism services? Never 08/05/2021 Do you [...] at Date Recorded Female 11/09/2021 7:53 PM SPACE SCIENCES DIRECTOR COVID-19 Exposure Response Date Recorded In [...] visit? Yes Patient is currently in the [facility]? yes Patient would like the video invitation sent by: Text to cell phone: [phone]} Video Start Time: 1:58 PM Additional provider [...] you to have breathing issues, working with electric appliance installer on this. Your stress level is [...] - referred to speech therapy again from electric appliance installer - co-worker with significant anxiety - otherwise work is ok - discussed [facility] as a resource for ex suing for custody and child support - frustrated about ex's current and past behaviors, being told by spanish literature professor you had to 'drop' MARCELO and PRASAD [...] [facility] for their law clinic - download Solavista mulu We believe regular attendance is miranda to your success in our program! ?? Any time you are unable to keep your appointment we ask that you call us at [phone] at least24 hours in advance to cancel.This will allow us to offer the appointment time to another patient. ?? Multiple missed appointments may lead to dismissal from the clinic. Video-Visit Details Type of service: Video Visit Video End Time (time video stopped): 2:41 PM Originating Location (pt. Location): Home Distant Location (provider location): [facility] Mode of Communication: Video Conference via Discovery Machine Marilia Deluna PsyD LP Licensed Psychologist Outpatient Clinic Therapist [facility] Pain [facility] documented in this encounter Plan of Treatment Upcoming Encounters Date Type Specialty Care Team Description 10/21/2022 Office Visit Pulmonology Obdulio Barrera MD [address] [place] [phone] (Estefanía rk) 10/25/2022 PRE VISIT Charo Carter MD Previsit [address] [place] [address] (Estefanía casanova) 10/25/2022 Office Visit Charo Carter MD [address] [place] [address] (Wo rk) 10/25/2022 Office Visit ENT Provider, Jeannette Ent Dysphonia Office Professional 10/25/2022 Virtual Visit Pain & Palliative [place] [address] [place], [place] [address] 10/28/2022 Appointment Speech Therapy Anabel Chew, STAFF TECHNOLOGIST [address] [id number] (Wo rk) 11/17/2022 Appointment Speech Therapy Anabel Chew, CELINE [address] 9435[address] (Wo rk) 12/01/2022 Office Visit Pain & [place] [address] [place], [place] [address] (Wo rk) 12/23/2022 Office Visit Neurology Colby Yeung MD [address] [place], [place] [address] (Wo rk) documented as of this encounter Goals Goal Patient Goal Associated Recent Patient-Stated? Author Type Problems Progress Attend Speciality Care Plan Establish Care 50% No Randal rn, Appointments (10/10/2022 Mago Murray, (BOTTOM BRUSHER, 9:29 AM SPACE SCIENCES DIRECTOR) [facility] Psychiatry, Counseling, and the Sleep Clinic) Note: Formatting of this note is differe nt from the original. Barriers: Appointment availability. Strengths: Recognition of need, Care Final Finisher Forging Dies rdination involvement. Patient expressed understanding of goal: [...] Lesly Celaya MD [facility] [place] To address painful lumps in my abdomin [...] No Mago Swift well-managed. self-managed 9:29 AM SPACE SCIENCES DIRECTOR) MARISA Murray W Note: Formatting of this [...] Name Priority Date/Time Associated Diagnosis Comme nts [place] [facility] Routine 07/14/2022 2:42 PM CDT Chroni c pain syndrome INTERVENTION, Cervicogenic hea mohsen INDIVIDUAL, INITIAL 30 Cervical radiculopathy MINS Neuropathic [...] as of this encounter Care Teams General Machine Operator Relationship Specialty Start Date End Date Aydee Burton, PCP - General Nurse Practitioner - 05/17/21 CLINICAL LABORATORY MANAGER SECOND HAND PAPER MACHINE Family [address] [place] [address] [phone] Aydee Burton, Assigned PCP 04/28/21 CLINICAL LABORATORY MANAGER SECOND HAND PAPER MACHINE [address] [place], [place] [phone] Louisa Hood, Assigned Neuroscience 07/11/21 CLINICAL LABORATORY MANAGER SECOND HAND PAPER MACHINE Provider 500 [place], [place] [address] [place], Assigned Sleep 08/01/21 Angel Turcios, Provider [address] [place], [place] [address] Lesly Celaya MD Assigned Surgical 09/05/21 [address] Provider [place], [place] [phone] [facility] 09/30/21 Worker Ramses Mcpherson Assigned OBGYN 11/07/21 MD Onesimo Provider [address] [place], [place] [phone] Obdulio Barrera MD Critical Care 01/24/[address] [place] [address] Obdulio Barrera, Assigned Pulmonology 02/06/22 MD Provider [address] [phone] Lesvia Stanley, EP Cardiac Rehabilitation 03/03/22 03/03/23 [facility] Therapist [address] [id number] Marilia Deluna, PhD Assigned Behavioral 02/20/22 [address] [facility] Provider [place], [place] [address] Niyah Decker, [facility] Pharmacist Pharmacist 03/07/22 420 [facility] 812 [place] [address] Lesvia Stanley, GHADA Cardiac Rehabilitation 03/17/22 03/17/23 [facility] Therapist [address] [id number] Delia Avila, Pharmacist Pharmacist 06/07/22 [facility] [address] [place] [address] Mago Swift, [facility] Lead Electrical Tester Battery Team Leader - 08/05/21 Clinical Niyah Decker, [facility] Assigned MTM 06/25/22 07/29/22 420 [facility] 812 [place] [address] documented as of this encounter
--- OUTSIDE RECORDS SUMMARY | 2022-10-21 08:49 | XMS_ITS | Encounter Summary ---
:1980 Author Organization [place] Address [address] [place] [address] Care Team Providers Name Role Phone Aydee Burton RELAY SHOP TESTER TECHNICAL INSPECTOR Primary Care Provider [phone] Aydee Burton RELAY SHOP TESTER TECHNICAL INSPECTOR Unavailable [phone] Louisa Hood RELAY SHOP TESTER TECHNICAL INSPECTOR Unavailable [phone] Angel Hannah MD Unavailable Lesly Celaya MD Unavailable Tawana Patel MA Unavailable Unavailable Ramses Mcpherson MD Unavailable [phone] Obdulio Barrera MD Unavailable [phone] Obdulio Barrera MD Unavailable [phone] Lesvia Stanley EP Unavailable Marilia Deluna PhD Unavailable Niyah Decker [facility] Unavailable Lesvia Stanley Unavailable Austin Delia Mel [facility] Unavailable [phone] Mago Swift [facility] Unavailable Simona Leela [facility] Unavailable Encounter Details Date Type Department Care Team Description 08/01/2022 Ancillary M Physicians Mikal Collier of altered Procedure Epilepsy Care EEG Colby cognition 5739 MD Gurwinder Li [address] [facility] [address] [place] [address] [place] [address] (Work) [phone] Social History Tobacco Use Types Packs/Day Years [...] How often do you attend taoist or nondenominational services? Never 08/05/2021 Do you [...] at Date Recorded Female 11/09/2021 7:53 PM PEAT SHREDDER TENDER COVID-19 Exposure Response Date Recorded In the last 10 days, have you been in contact with No / Unsu re 08/01/2022 1:04 PM CDT someone who was confirmed or suspected to have Coronavirus/COVID-19? documented as of this encounter Plan of Treatment Upcoming Encounters Date Type Specialty Care Team Description 10/21/2022 Office Visit Pulmonology Obdulio Barrera MD [address] [address] (Wo rk) 10/25/2022 PRE VISIT ENT Charo Burton MD Previsit [address] [place] [address] (Wo rk) 10/25/2022 Office Visit ENT Charo Burton MD [address] [place] [address] (Wo rk) 10/25/2022 Office Visit ENT Provider, Ent Dysphonia Hat Former 10/25/2022 Virtual Visit Pain & Palliative [place] [address] [place], [place] [address] 10/28/2022 Appointment Speech Therapy Anabel Chew, BLUEPRINTING AND PHOTOCOPY SUPERVISOR [address] [phone] (Wo rk) 11/17/2022 Appointment Speech Therapy Anabel Chew, BLUEPRINTING AND PHOTOCOPY SUPERVISOR [address] [phone] (Wo rk) 12/01/2022 Office Visit Pain & [place] [address] [place], [place] [address] (Wo rk) 12/23/2022 Office Visit Neurology Colby Yeung MD [address] [place] [address] (Wo rk) documented as of this encounter Goals Goal Patient Goal Associated Recent Patient-Stated? Author Type Problems Progress Attend Speciality Care Plan Establish Care 50% Claudia Tee rn, Appointments (10/10/2022 Mago Murray, (PINKED EDGE 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, 9:29 AM PEAT SHREDDER TENDER) [facility] Psychiatry, Counseling, and the Sleep Clinic) Note: Formatting of this note is differe nt from the original. Barriers: Appointment availability. Strengths: Recognition of need, Care Assembler Hydraulic Backhoe rdination involvement. Patient expressed understanding of goal: [...] Lesly Celaya MD [facility] [place] To address painful lumps in my abdomin [...] No Mago Swift well-managed. self-managed 9:29 AM PEAT SHREDDER TENDER) M, MARISA W Note: Formatting of this [...] EEG Video 2-12 hrs Continuous Monitoring Result [facility] EEG #[id number] (Out-Patient Vi vitaliy-EEG Monitoring) Name: ? Marta [...] monitoring was utilized and periodically reviewed by environmental health technologist and the physician for electroclinical correl [...] Other signs and symptoms involving cogni tion documented in this encounter Additional Health Concerns Problem Noted Date Establish Care 07/05/2022 Chronic Pain is not self-managed 07/05/2022 Assessment Noted Time PHQ-9 Depression Total Score: 16 06/24/2022 9:31 AM CD T documented as of this encounter Care Teams Manager Field Sales Relationship Specialty Start Date End Date Aydee Burton, PCP - General Nurse Practitioner - 05/17/21 RELAY SHOP TESTER [facility] [address] [place] [address] [phone] Aydee Burton, Assigned PCP 04/28/21 RELAY SHOP TESTER [address] 573832 Louisa Hood, Assigned Neuroscience 07/11/21 RELAY SHOP TESTER TECHNICAL INSPECTOR Provider 500 [place], [place] [address] [place], Assigned Sleep 08/01/21 Angel Turcios, Provider [address] [place], [place] [address] Lesly Celaya MD Assigned Surgical 09/05/21 [address] Provider [place], [place] [phone] Tawana Patel MA [facility] 09/30/21 Worker Ramses Mcpherson Assigned OBGYN 11/07/21 MD Onesimo Provider [address] [place], [place] [address] Obdulio Barrera MD Critical Care 01/24/[address] [place] [address] Obdulio Barrera, Assigned Pulmonology 02/06/[address] [address] Lesvia Stanley, GHADA Cardiac Rehabilitation 03/03/22 03/03/23 [facility] Therapist [address] [place] [place] [address] Marilia Deluna, PhD Assigned Behavioral 02/20/22 [address] [facility] [place] [address] Niyah Decker, [facility] Pharmacist Pharmacist 03/07/[address] [place] [address] 812 [place] [address] Lesvia Stanley EP Cardiac Rehabilitation 03/17/22 03/17/23 [facility] Therapist [address] [address] Delia Avila, Pharmacist Pharmacist 06/07/22 [facility] 909 [place] [address] Mago Swift, [facility] Lead Teacher Industrial Arts Strand Forming Machine Operator - 08/05/21 Clinical Leela Jarvis, [facility] Pharmacist 07/26/22 05/15/23 [address] [facility] [place] [address] documented as of this encounter
--- OUTSIDE RECORDS SUMMARY | 2022-10-21 08:49 | XMS_ITS | Encounter Summary ---
:1980 Author Organization [place] Address [address] [place] [address] Care Team Providers Name Role Phone Aydee Burton MILL OILER FOOD MIXER Primary Care Provider [phone] Aydee Burton MILL OILER FOOD MIXER Unavailable [phone] Louisa Hood MILL OILER FOOD MIXER Unavailable [phone] Angel Hannah MD Unavailable Lesly Celaya MD Unavailable Tawana Patel MA Unavailable Unavailable Ramses Mcpherson MD Unavailable [phone] Obdulio Barrera MD Unavailable [phone] Obdulio Barrera MD Unavailable [phone] Lesvia Stanley EP Unavailable Marilia Deluna PhD Unavailable Niyah Decker [facility] Unavailable Lesvia Stanley Unavailable Austin Delia Mel [facility] Unavailable [phone] JamisonMago [facility] Unavailable Niyah Decker [facility] Unavailable Leela Jarvis [facility] Unavailable Encounter Details [...] How often do you attend yarsani or buddhism services? 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/2021 7:53 PM MANUFACTURING COST ESTIMATOR COVID-19 Exposure Response Date Recorded In the last 10 days, have you been in contact with No / Unsu re 07/28/2022 2:27 PM CDT someone who was confirmed or suspected to have Coronavirus/COVID-19? documented as of this encounter Plan of Treatment Upcoming Encounters Date Type Specialty Care Team Description 10/21/2022 Office Visit Pulmonology Obdulio Barrera MD 420 [facility] 276 [place], [place] [address] (Wo rk) 10/25/2022 PRE VISIT ENT Charo Burton MD Previsit [address] [place] [address] (Wo rk) 10/25/2022 Office Visit ENT Chrao Burton MD [address] [place] [address] (Wo rk) 10/25/2022 Office Visit ENT Provider, Ent Dysphonia Inside Sales Assistant 10/25/2022 Virtual Visit Pain & Palliative [place] [address] [place], [place] [address] 10/28/2022 Appointment Speech Therapy Anabel Chew, MANAGER APPLICATION DEVELOPMENT [address] [address] (Wo rk) 11/17/2022 Appointment Speech Therapy Anabel Chew, MANAGER APPLICATION DEVELOPMENT [address] 156525 (Wo rk) 12/01/2022 Office Visit Pain & [place] [address] [place], [place] [address] (Wo rk) 12/23/2022 Office Visit Neurology Colby Yeung MD [address] [place] [address] (Wo rk) documented as of this encounter Goals Goal Patient Goal Associated Recent Patient-Stated? Author Type Problems Progress Attend Speciality Care Plan Establish Care 50% No Randal rn, Appointments (10/10/2022 Mago Murray, (WELDING ENGINEER, 9:29 AM MANUFACTURING COST ESTIMATOR) [facility] Psychiatry, Counseling, and the Sleep Clinic) Note: Formatting of this note is differe nt from the original. Barriers: Appointment availability. Strengths: Recognition of need, Care Radio Station Audio Engineer rdination involvement. Patient expressed understanding of [...] 9:45 AM Lesly Celaya MD [facility] [place] To address painful lumps in my abdomin [...] No Mago Swift well-managed. self-managed 9:29 AM MANUFACTURING COST ESTIMATOR) M, MARISA W Note: Formatting of this [...] documented as of this encounter Care Teams Banker Mason Relationship Specialty Start Date End Date Aydee Burton, PCP - General Nurse Practitioner - 05/17/21 MILL OILER FOOD MIXER Family [address] [place], [place] [phone] Aydee Burton, Assigned PCP 04/28/21 MILL OILER FOOD MIXER [address] [place], [place] [phone] Louisa Hood, Assigned Neuroscience 07/11/21 MILL OILER FOOD MIXER Provider [address] [place], [place] [phone] [place], Assigned Sleep 08/01/21 Angel Turcios, Provider [address] [place], [place] [phone] Lesly Celaya MD Assigned Surgical 09/05/21 [address] [place] [address] Tawana Patel MA [facility] 09/30/21 Worker Ramses Mcpherson Assigned OBGYN 11/07/21 MD Onesimo Provider [address] [place] [address] Obdulio Barrera MD Critical Care 01/24/22 420 [facility] 276 [place], [place] [phone] Obdulio Barrera, Assigned Pulmonology 02/06/22 MD Provider 420 [facility] 276 [place], [place] [address] Lesvia Stanley, GHADA Cardiac Rehabilitation 03/03/22 03/03/23 [facility] Therapist [address] [place] [address] Marilia Deluna, PhD Assigned Behavioral 02/20/22 [address] [facility] [place] [address] Niyah Decker, [facility] Pharmacist Pharmacist 03/07/[address] [place] [address] 812 [place], [place] [address] Lesvia Stanley, GHADA Cardiac Rehabilitation 03/17/22 03/17/23 [facility] Therapist [address] [address] Delia Avila, Pharmacist Pharmacist 06/07/22 [facility] 909 [place], [place] [address] Mago Swift, [facility] Lead Bullet Lubricating Machine Operator Hide Mill Man - 08/05/21 Clinical Niyah Decker, [facility] Assigned MTM 06/25/22 07/29/22 420 [facility] 812 Pharmacist [place], [place] [address] Leela Jarvis [facility] Pharmacist 07/26/22 05/15/23 3305 [facility] [place] [phone] documented as of this encounter
--- OUTSIDE RECORDS SUMMARY | 2022-10-21 08:49 | XMS_ITS | Encounter Summary ---
:1980 Author Organization [place] Address [address] [place] [address] Care Team Providers Name Role Phone Aydee Burton SLICE PLUG CUTTER OPERATOR DATA COMMUNICATIONS TECHNICIAN Primary Care Provider Aydee Burton SLICE PLUG CUTTER OPERATOR DATA COMMUNICATIONS TECHNICIAN Unavailable [phone] Louisa Hood SLICE PLUG CUTTER OPERATOR DATA COMMUNICATIONS TECHNICIAN Unavailable [phone] Angel Hannah MD Unavailable Lesly Celaya MD Unavailable Tawana Patel MA Unavailable Unavailable Ramses Mcpherson MD Unavailable [phone] Obdulio Barrera MD Unavailable [phone] Obdulio Barrera MD Unavailable [phone] Lesvia Stanley EP Unavailable Marilia Deluna PhD Unavailable Niyah Decker [facility] Unavailable Lesvia Stanley Unavailable Delia Avila [facility] Unavailable [phone] Mago Swift [facility] Unavailable Niyah Decker [facility] Unavailable Encounter Details Date Type [...] How often do you attend mandaeism or synagogue services? 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/2021 7:53 PM MANAGER WEALTH MANAGEMENT COVID-19 Exposure Response Date Recorded In the last 10 days, have you been in contact with No / Unsu re 07/06/2022 11:58 AM CDT someone who was confirmed or suspected to have Coronavirus/COVID-19? documented as of this encounter Plan of Treatment Upcoming Encounters Date Type Specialty Care Team Description 10/21/2022 Office Visit Pulmonology Obdulio Barrera MD 420 [facility] 276 [place], [place] [address] (Wo rk) 10/25/2022 PRE VISIT ENT Charo Burton MD Previsit 909 [place], [place] [address] (Wo rk) 10/25/2022 Office Visit ENT Charo Burton MD [address] [place] [address] (Wo rk) 10/25/2022 Office Visit ENT Provider, Ent Dysphonia Type Copyist 10/25/2022 Virtual Visit Pain & Palliative Care [place] [address] [place], [place] [address] 10/28/2022 Appointment Speech Therapy Anabel Chew, BRICK DROPPER [address] [place], [place] [address] (Wo rk) 11/17/2022 Appointment Speech Therapy Anabel Chew, BRICK DROPPER [address] [place], [place] [address] (Wo rk) 12/01/2022 Office Visit Pain & [place] [address] [place], [place] [address] (Wo rk) 12/23/2022 Office Visit Neurology Colby Yeung MD [address] [place] [address] (Wo rk) documented as of this encounter Goals Goal Patient Goal Associated Recent Patient-Stated? Author Type Problems Progress Attend Speciality Care Plan Establish Care 50% No Karene rn, Appointments (10/10/2022 Mago Murray, (EDUCATION DEPARTMENT CHAIR, 9:29 AM MANAGER WEALTH MANAGEMENT) [facility] Psychiatry, Counseling, and the Sleep Clinic) Note: Formatting of this note is differe nt from the original. Barriers: Appointment availability. Strengths: Recognition of need, Care Sludge Mill Operator rdination involvement. Patient expressed understanding [...] Celaya MD [facility] Surgery [facility] To address painful lumps in my abdomin [...] Mago Swift well-managed. self-managed 9:29 AM MANAGER WEALTH MANAGEMENT) MARISA Murray W Note: Formatting of [...] documented as of this encounter Care Teams System Configuration Specialist Relationship Specialty Start Date End Date Aydee Burton, PCP - General Nurse Practitioner - 05/17/21 SLICE PLUG CUTTER OPERATOR DATA COMMUNICATIONS TECHNICIAN Family [address] [place] [address] [phone] Aydee Burton, Assigned PCP 04/28/21 SLICE PLUG CUTTER OPERATOR DATA COMMUNICATIONS TECHNICIAN [address] [place] [address] [phone] Louisa Hood, Assigned Neuroscience 07/11/21 SLICE PLUG CUTTER OPERATOR DATA COMMUNICATIONS TECHNICIAN Provider [address] [place], [place] [phone] [place], Assigned Sleep 08/01/21 Angel Turcios, Provider [address] [place], [place] [phone] Lesly Celaya MD Assigned Surgical 09/05/21 [address] Provider [place], [place] [address] Tawana Patel MA [facility] 09/30/21 Worker Ramses Mcpherson Assigned OBGYN 11/07/21 MD Onesimo Provider [address] [place] [address] Obdulio Barrera MD Critical Care 01/24/[address] [place] [address] [facility] 276 [place], [place] [address] Obdulio Barrera, Assigned Pulmonology 02/06/22 MD Provider 420 [facility] 276 [place], [place] [address] Lesvia Stanley, GHADA Cardiac Rehabilitation 03/03/22 03/03/23 [facility] Therapist [address] [place] [address] Marilia Deluna, PhD Assigned Behavioral 02/20/22 [address] [facility] [place] [address] Niyah Decker, [facility] Pharmacist Pharmacist 03/07/[address] [place] [address] 812 [place] [address] Lesvia Stanley, GHADA Cardiac Rehabilitation 03/17/22 03/17/23 [facility] Therapist [address] [place] MT [address] Delia Avila, Pharmacist Pharmacist 06/07/22 [facility] 909 [place] [address] Mago Swift, [facility] Lead 3D Designer Medical Assembly - 08/05/21 Clinical Niyah Decker, [facility] Assigned MTM 06/25/22 07/29/[address] [place] [address] 812 [place] [address] documented as of this encounter
--- OUTSIDE RECORDS SUMMARY | 2022-10-21 08:49 | XMS_ITS | Encounter Summary ---
:1980 Author Organization [place] Address [address] [place] [address] Care Team Providers Name Role Phone Aydee Burton BAILIFF INSIDE PHONE SALES Primary Care Provider [phone] Aydee Burton BAILIFF INSIDE PHONE SALES Unavailable [phone] Louisa Hood BAILIFF INSIDE PHONE SALES Unavailable [phone] Angel Hannah MD Unavailable Lesly Celaya MD Unavailable Tawana Patel MA Unavailable Unavailable Ramses Mcpherson MD Unavailable [phone] Obdulio Barrera MD Unavailable [phone] Obdulio Barrera MD Unavailable Lesvia Stanley EP Unavailable Marilia Deluna PhD Unavailable Niyah Decker [facility] Unavailable Lesvia Stanley Unavailable Delia Avila Mel [facility] Unavailable [phone] Mago Swift [facility] Unavailable BrianneNiyah [facility] Unavailable Reason for Referral Diagnostic Imaging MRI (Routine) - Closed Specialty Diagnoses / Procedures Referred By Contact Refer red To Contact Diagnoses Cervical radiculopathy Madalyn Ponce MD Procedures MR Cervical Spine w/o Contrast [address] [place] [address] Referral ID Status Reason Start Date Expiration Date Visits Requ ested Visits Authorized [id number] Closed 06/23/2022 06/23/2023 1 1 Reason for Visit Diagnostic Imaging MRI (Routine) - Closed Specialty Diagnoses / Procedures Referred By Contact Refer red To Contact Diagnoses Cervical radiculopathy Madalyn Ponce MD Procedures MR Cervical Spine w/o Contrast [address] [place] [address] Referral ID Status Reason Start Date Expiration Date Visits Requ ested Visits Authorized [id number] Closed 06/23/2022 06/23/2023 1 1 Encounter Details Date Type Department Care Team Description 07/08/2022 Hospital Encounter [facility] Madalyn Mustafa, Cervical [place] [facility] radiculopathy [address] [place] [address] [place] [address] [place] [phone] Social History Tobacco Use Types Packs/Day Years [...] How often do you attend mormon or judaism services? Never 08/05/2021 Do you [...] at Date Recorded Female 11/09/2021 7:53 PM AUTOMOTIVE CONSULTANT COVID-19 Exposure Response Date Recorded In [...] THEN 1 ONCE DAILY FOR 9 DAYS methocarbamol (ROBAXIN) Take 1-1.5 tablets 90 tablet 1 07/12/202109/23/2022 500 MG (500-750 mg) by mouth tabletIndications: [...] by mouth 2 times Neuropathic pain daily tiotropium (SPIRIVA) 18 Inhale 1 capsule (18 30 capsule 3 10/11/2022 MCG inhaled mcg) into the lungs capsuleIndications: SOB daily (shortness of breath) documented as of this encounter Plan of Treatment Upcoming Encounters Date Type Specialty Care Team Description 10/21/2022 Office Visit Pulmonology Obdulio Barrera MD [address] [place] [address] (Wo rk) 10/25/2022 PRE VISIT Charo Carter MD Previsit [address] [place] [address] (Wo rk) 10/25/2022 Office Visit Charo Carter MD [address] [place] [address] (Wo rk) 10/25/2022 Office Visit ENT Provider, Jeannette Ent Dysphonia Fill Plant Operator 10/25/2022 Virtual Visit Pain & Palliative Care Marilia Deluna[place] PhD [address] [place], [place] [address] 10/28/2022 Appointment Speech Therapy Anabel Chew, PLASTICS NURSE [address] [address] (Wo rk) 11/17/2022 Appointment Speech Therapy Anabel Chew, PLASTICS NURSE [address] [address]04[address] (Wo rk) 12/01/2022 Office Visit Pain & [place] [address] [place], [place] [address] (Wo rk) 12/23/2022 Office Visit Neurology Colby Yeung MD [address] [place], [place] [address] (Wo rk) documented as of this encounter Goals Goal Patient Goal Associated Recent Patient-Stated? Author Type Problems Progress Attend Speciality Care Plan Establish Care 50% No Randal rn, Appointments (10/10/2022 Mago Murray, (SUPERVISOR TESTING, 9:29 AM AUTOMOTIVE CONSULTANT) [facility] Psychiatry, Counseling, and the Sleep Clinic) Note: Formatting of this note is differe nt from the original. Barriers: Appointment availability. Strengths: Recognition of need, Care Supervisor Communications And Signals rdination involvement. Patient expressed understanding of goal: [...] Celaya MD [facility] [place] To address painful lumps in my abdomin [...] No Mago Swift well-managed. self-managed 9:29 AM AUTOMOTIVE CONSULTANT) MMARISA W Note: Formatting of this [...] EXAM: MR CERVICAL SPINE W/O CONTRAST LOCATION: [facility] SPITAL DATE/TIME: 07/08/2022 7:24 PM INDICATION: ??Cervical [...] EXAM: MR CERVICAL SPINE W/O CONTRAST LOCATION: [facility] SPITAL DATE/TIME: 07/08/2022 7:24 PM INDICATION: Cervical [...] documented as of this encounter Care Teams Global Compensation Manager Relationship Specialty Start Date End Date Aydee Burton, PCP - General Nurse Practitioner - 05/17/21 BAILIFF [facility] Family [address] [place], [place] [address] Aydee Burton, Assigned PCP 04/28/21 BAILIFF INSIDE PHONE SALES [address] [place] [address] Louisa Hood, Assigned Neuroscience 07/11/21 BAILIFF INSIDE PHONE SALES Provider [address] [place], [place] [phone] [place], Assigned Sleep 08/01/21 Angel Turcios, Provider [address] [place], [place] [address] Lesly Celaya MD Assigned Surgical 09/05/21 [address] [facility] Provider [place], [place] [phone] Tawana Patel Counts include 234 beds at the [facility] 09/30/21 Worker Ramses Mcpherson Assigned OBGYN 11/07/21 MD Onesimo Provider [address] [place] [address] Obdulio Barrera MD Critical Care 01/24/[address] [place] [address] 276 [place], [place] [address] Obdulio Barrera, Assigned Pulmonology 02/06/22 Provider [address] [facility] [address] [place], [place] [address] Lesvia Stanley EP Cardiac Rehabilitation 03/03/22 03/03/23 [facility]OSP Therapist [address] [address] Marilia eDluna, PhD Assigned Behavioral 02/20/22 [address] [facility] [place] [address] Niyah Decker, [facility] Pharmacist Pharmacist 03/07/22 420 [facility] 812 [place] [address] Lesvia Stanley, GHADA Cardiac Rehabilitation 03/17/22 03/17/23 [facility]OS[facility] Therapist [address] [place] [place] [address] Delia Avila, Pharmacist Pharmacist 06/07/22 [facility] [address] [place] [address] Mago Swift [facility] Lead Veneer Stapler Community Service Technician - 08/05/21 Clinical Niyah Decker, [facility] Assigned MTM 06/25/22 07/29/[address] [place] [address] 812 [place] [address] documented as of this encounter
--- OUTSIDE RECORDS SUMMARY | 2022-10-21 08:49 | XMS_ITS | Encounter Summary ---
:1980 Author Organization [place] Address [address] [place] [address] Care Team Providers Name Role Phone Aydee Burton HIGH PRESSURE CLEANER LINE AND FRAME POLER Primary Care Provider Aydee Burton HIGH PRESSURE CLEANER LINE AND FRAME POLER Unavailable [phone] Louisa Hood HIGH PRESSURE CLEANER LINE AND FRAME POLER Unavailable [phone] Angel Hannah MD Unavailable Lesly Celaya MD Unavailable Tawana Patel MA Unavailable Unavailable Ramses Mcpherson MD Unavailable [phone] Obdulio Barrera MD Unavailable [phone] Obdulio Barrera MD Unavailable [phone] Lesvia Stanley EP Unavailable Marilia Deluna PhD Unavailable Niyah Decker [facility] Unavailable Lesvia Stanley Unavailable Delia Avila [facility] Unavailable [phone] JamisonMago [facility] Unavailable Niyah Decker [facility] Unavailable Leela Jarvis [facility] Unavailable Reason for Visit Rehab Therapy Physical Therapy (Routine: Next available opening) - Pending Review Specialty Diagnoses / Procedures Referred By Contact Refer red To Contact Diagnoses Tension headache Cervicogenic headache Cervicalgia Colby Yeung MD [address] [address] Referral ID Status Reason Start Date Expiration Date Visits V isits Requested Authorized [id number] Pending 06/30/2022 06/30/2023 1 1 Review Encounter Details Date Type Department Care Team Description 07/28/[address] [facility] Melanie Reardon in (Primary Rehabilitation Services Una Murray, PT Dx) [facility] [address] [address] [address] [place] [address] (Work) [phone] Social History Tobacco Use Types Packs/Day Years [...] How often do you attend samaritan or yazidism services? Never 08/05/2021 Do you belong to [...] at Date Recorded Female 11/09/2021 7:53 PM PROJECT COACH COVID-19 Exposure Response Date Recorded In the last 10 days, have you been in contact with No / Unsu re 07/28/2022 2:27 PM CDT someone who was confirmed or suspected to have Coronavirus/COVID-19? documented as of this encounter Plan of Treatment Upcoming Encounters Date Type Specialty Care Team Description 10/21/2022 Office Visit Pulmonology Obdulio Barrera MD 420 [facility] 276 [place] [address] (Wo rk) 10/25/2022 PRE VISIT ENT Charo Burton MD Previsit [address] [place] [phone] (Wo rk) 10/25/2022 Office Visit Charo Carter MD [address] [place] [phone] (Wo rk) 10/25/2022 Office Visit ENT Provider, Jeannette Ent Dysphonia Carpenter Supervisor Wooden Ship 10/25/2022 Virtual Visit Pain & Palliative [place] [address] [place], [place] [address] 10/28/2022 Appointment Speech Therapy Anabel Chew, AIRPLANE FUELER [facility] 516 [facility] [address] [place], [place] [address] (Wo rk) 11/17/2022 Appointment Speech Therapy Anabel Chew, AIRPLANE FUELER [place] [address] [facility] [address] [place], [place] [address] (Wo rk) 12/01/2022 Office Visit Pain & [place] [address] [place], [place] [address] (Wo rk) 12/23/2022 Office Visit Neurology Colby Yeung MD [address] [place] [address] (Wo rk) documented as of this encounter Goals Goal Patient Goal Associated Recent Patient-Stated? Author Type Problems Progress Attend Speciality Care Plan Establish Care 50% No Randal rn, Appointments (10/10/2022 Mago Murray, (CLOTH LAYER, 9:29 AM PROJECT COACH) [facility] Psychiatry, Counseling, and the Sleep Clinic) Note: Formatting of this note is differe nt from the original. Barriers: Appointment availability. Strengths: Recognition of need, Care Patent Attorney rdination involvement. Patient expressed understanding of goal: [...] Celaya MD [facility] Surgery [facility] To address [...] No Mago Swift well-managed. self-managed 9:29 AM PROJECT COACH) MARISA Murray Note: Formatting of this [...] Name Priority Date/Time Associated Diagnosis Comme nts CO MANUAL THERAPY, EA 15 Routine 07/29/2022 8:03 AM CDT Neck p ain MIN CO THERAPEUTIC Routine 07/29/2022 8:03 AM CDT Neck pain EXERCISES. EA 15 MIN documented in this encounter Visit Diagnoses Diagnosis Neck pain - Primary Cervicalgia documented in this encounter Additional Health Concerns Problem Noted Date Establish Care 07/05/2022 Chronic Pain is not self-managed 07/05/2022 Assessment Noted Time PHQ-9 Depression Total Score: 16 06/24/2022 9:31 AM CD T documented as of this encounter Care Teams Local Bulk Driver Relationship Specialty Start Date End Date Aydee Burton, PCP - General Nurse Practitioner - 05/17/21 HIGH PRESSURE CLEANER LINE AND FRAME POLER Family [address] [place], [place] [address] Aydee Burton, Assigned PCP 04/28/21 HIGH PRESSURE CLEANER [facility] [address] [place], [place] [address] Louisa Hood, Assigned Neuroscience 07/11/21 HIGH PRESSURE CLEANER LINE AND FRAME POLER Provider 500 [facility] [place] [place] [address] [place], Assigned Sleep 08/01/21 Angel Turcios, Provider [address] [place], [place] [address] Lesly Celaya MD Assigned Surgical 09/05/[address] Provider [place], [place] [address] Tawana Patel MA [facility] 09/30/21 Worker Ramses Mcpherson Assigned OBGYN 11/07/21 MD Onesimo Provider [address] [place] [address] Obdulio Barrera MD Critical Care 01/24/22 MD 420 [facility] 276 [place], [place] [address] Obdulio Barrera, Assigned Pulmonology 02/06/22 Provider 420 [facility] 276 [place], [place] [address] Lesvia Stanley, GHADA Cardiac Rehabilitation 03/03/22 03/03/23 [facility] HOSP Therapist [address] [facility] [place], [place] [address] Marilia Deluna, PhD Assigned Behavioral 02/20/22 [address] [facility] Provider [place], [place] [address] Niyah Decker, [facility] Pharmacist Pharmacist 03/07/[address] [place] [address] 812 [place], [place] [address] Lesvia Stanley, GHADA Cardiac Rehabilitation 03/17/22 03/17/23 [facility] HOSP Therapist [address] [address] Delia Avila, Pharmacist Pharmacist 06/07/22 [facility] 909 [place], [place] [address] Mago Swift, [facility] Lead Shank Breaker Field Investigator - 08/05/21 Clinical Niyah Decker, [facility] Assigned MTM 06/25/22 07/29/22 420 [facility] 812 [place] [address] Leela Jarvis, [facility] Pharmacist 07/26/22 05/15/23 [address] [facility] [place] [id number] documented as of this encounter
--- OUTSIDE RECORDS SUMMARY | 2022-10-21 08:49 | XMS_ITS | Encounter Summary ---
:1980 Author Organization [place] Address [address] [place] [address] Care Team Providers Name Role Phone Aydee Burton GEOSPATIAL SCIENTIST CLOTH ROLL WINDER Primary Care Provider Aydee Burton GEOSPATIAL SCIENTIST CLOTH ROLL WINDER Unavailable [phone] Louisa Hood GEOSPATIAL SCIENTIST CLOTH ROLL WINDER Unavailable [phone] Angel Hannah MD Unavailable Lesly Celaya MD Unavailable Tawana Patel MA Unavailable Unavailable Ramses Mcpherson MD Unavailable [phone] Obdulio Barrera MD Unavailable [phone] Obdulio Barrera MD Unavailable [phone] Lesvia Stanley EP Unavailable Marilia Deluna PhD Unavailable Niyah Decker [facility] Unavailable Lesvia Stanley Unavailable Delia Avila [facility] Unavailable [phone] Mago Swift [facility] Unavailable Niyah Decker [facility] Unavailable Reason for Referral Rehab Therapy Integrated Services (Routine: Next available opening) - Authorized Specialty Diagnoses / Procedures Referred By Contact Refer red To Contact Diagnoses Severe persistent asthma without complication Vocal cord dysfunction Obdulio Barrera, [facility] [place] [phone] [place], [place] [address] Referral ID Status Reason Start Date Expiration Date Visits V isits Requested Authorized [id number] Authorized 09/05/2022 11/12/2022 365 365 Reason for Visit Reason Comments Follow Up Moderate persistent asthma w ithout complication Encounter Details Date Type Department Care Team Description 07/13/[facility]22 [facility] ers[facility] without complication (Primary Dx); Specialty Clinic MD Leo Vocal cord dysfunction [address] [place] [address] [phone] Social History Tobacco Use Types Packs/Day Years [...] How often do you attend buddhist or restorationist services? Never 08/05/2021 Do you [...] at Date Recorded Female 11/09/2021 7:53 PM ELECTRICIAN'S HELPER COVID-19 Exposure Response Date Recorded In [...] through Care Everywhere. Vocal Cord Dysfunction (VCD) (Surinamese)documented in this encounter Progress Notes Obdulio Barrera MD - 07/13/2022 3:30 PM CDT Pulmonary Clinic Note Date of Service: 07/13/2022 Chief Complaint Patient presents with ??? Follow Up Moderate persistent asthma without complication A/P: 42F being seen for severe persistent asthma. Remains symptomatic despite maximal inhaler therapy. ACT 8. Today, symptoms more c/w vocal cord dysfunction. [place] VCD Index 7. - speech therapy referral [...] GENITOURINARY SURGERY Tubal ligation and ablasion ??? HOTEL SUPPLIES SALESPERSON SURGERY not sure tubal ligation and ablasion [...] Other Topics Concern ??? Parent/sibling w/ CABG, [place] or angioplasty before 65F 55M? No Social [...] with Friends and Family: Never ??? Attends Buddhism Services: Never ??? Active Member of Clubs [...] MD Pulmonary and Critical Care Medicine [facility] documented in this encounter Nursing Notes Crista [...] Obdulio Barrera MD 420 [facility] 276 [place], [place] [address] (Wo rk) 10/25/2022 PRE VISIT ENT Charo Burton MD Previsit [address] [place] [phone] (Wo rk) 10/25/2022 Office Visit Charo Carter MD [address] [place] [address] (Wo rk) 10/25/2022 Office Visit ENT Provider, Ent Dysphonia Automatic Clipper 10/25/2022 Virtual Visit Pain & Palliative [place] [address] [place], [place] [address] 10/28/2022 Appointment Speech Therapy Anabel Chew, CELINE [address] [place] [address] (Wo rk) 11/17/2022 Appointment Speech Therapy Anabel Chew, PSYCHIATRY INSTRUCTOR [place] 466946 [facility] 396 [place], [place] [address] (Wo rk) 12/01/2022 Office Visit Pain & [place] [address] [address] [place], [place] [address] (Wo rk) 12/23/2022 Office Visit Neurology Colby Yeung MD [address] [place] [address] (Wo rk) Scheduled Referrals Name Type Priority [...] No Karene rn, Appointments (10/10/2022 Mago Murray, (SALES SUPPORT ADVISOR, 9:29 AM ELECTRICIAN'S HELPER) [facility] Psychiatry, Counseling, and the Sleep Clinic) Note: Formatting of this note is differe nt from the original. Barriers: Appointment availability. Strengths: Recognition of need, Care Technician'S Helper rdination involvement. Patient expressed understanding of [...] Celaya MD [facility] Surgery [facility] To address [...] No Mago Swift well-managed. self-managed 9:29 AM ELECTRICIAN'S HELPER) M, MARISA W Note: Formatting of this [...] cord dysfunction Other diseases of vocal cords documented in this encounter Additional Health Concerns Problem Noted Date Establish Care 07/05/2022 Chronic Pain is not self-managed 07/05/2022 Assessment Noted Time PHQ-9 Depression Total Score: 16 06/24/2022 9:31 AM CD T documented as of this encounter Care Teams Card Setter Relationship Specialty Start Date End Date Aydee Burton, PCP - General Nurse Practitioner - 05/17/21 GEOSPATIAL SCIENTIST CLOTH ROLL WINDER Family [address] [place], [place] [address] Aydee Burton, Assigned PCP 04/28/21 GEOSPATIAL SCIENTIST CLOTH ROLL WINDER [address] [place], [place] [address] Louisa Hood, Assigned Neuroscience 07/11/21 GEOSPATIAL SCIENTIST CLOTH ROLL WINDER Provider [address] [place], [place] [address] [place], Assigned Sleep 08/01/21 Angel Turcios, Provider [address] [place], [place] [address] Lesly Celaya MD Assigned Surgical 09/05/[address] [facility] Provider [place], [place] [address] Tawana Patel MA [facility] 09/30/21 Worker Ramses Mcpherson Assigned OBGYN 11/07/21 MD Onesimo Provider [address] [place], [place] [address] Obdulio Barrera MD Critical Care 01/24/[address] [place] [address] 276 [place], [place] [address] Obdulio Barrera, Assigned Pulmonology 02/06/[address] [place] [address] 276 [place], [place] [address] Lesvia Stanley, GHADA Cardiac Rehabilitation 03/03/22 03/03/23 [facility] HOSP Therapist [address] [address] Marilia Deluna, PhD Assigned Behavioral 02/20/22 [address] [facility] Provider [place], [place] [address] Niyah Decker, [facility] Pharmacist Pharmacist 03/07/22 420 [facility] 812 [place], [place] [address] Lesvia Stanley EP Cardiac Rehabilitation 03/17/22 03/17/23 [facility] HOSP Therapist [address] [address] Delia Avila, Pharmacist Pharmacist 06/07/22 [facility] 909 [place] [address] Mago Swift, [facility] Lead Supervisor Steffen House Bottom Sander - 08/05/21 Clinical Niyah Decker, [facility] Assigned MTM 06/25/22 07/29/22 420 [facility] 812 [place] [address] documented as of this encounter
--- OUTSIDE RECORDS SUMMARY | 2022-10-21 08:49 | XMS_ITS | Encounter Summary ---
:1980 Author Organization [facility] Address [address] [place] [address] Care Team Providers Name Role Phone Aydee Burton COAL EQUIPMENT OPERATOR ANESTHESIOLOGIST AND CRITICAL CARE Primary Care Provider Aydee Burton COAL EQUIPMENT OPERATOR ANESTHESIOLOGIST AND CRITICAL CARE Unavailable [phone] Louisa Hood COAL EQUIPMENT OPERATOR ANESTHESIOLOGIST AND CRITICAL CARE Unavailable [phone] Angel Hannah MD Unavailable Lesly Celaya MD Unavailable Tawana Patel MA Unavailable Unavailable Ramses Mcpherson MD Unavailable [phone] Obdulio Barrera MD Unavailable [phone] Obdulio Barrera MD Unavailable [phone] Lesvia Stanley EP Unavailable Marilia Deluna PhD Unavailable Niyah Decker [facility] Unavailable Lesvia Stanley Unavailable Delia Avila [facility] Unavailable [phone] Mago Swift [facility] Unavailable Niyah Decker [facility] Unavailable Reason for Visit Reason Onset Date Comments Refill Request 07/12/2022 pregabalin (LYRICA) 25 MG capsule Encounter Details Date Type Department Care Team Description 07/12/2022 [facility] Julio Vargas MD Refill Request Management Center [id number] KEAV[place] (pregabalin (LYRICA) [address] [place] [address] MG capsule) [place] [address] [place] [address] Social History Tobacco Use Types [...] How often do you attend mandaeism or christian services? 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/2021 7:53 PM OIL RAG WASHER COVID-19 Exposure Response Date Recorded In the last 10 days, have you been in contact with No / Unsu re 07/11/2022 12:53 PM CDT someone who was confirmed or suspected to have Coronavirus/COVID-19? documented as of this encounter Miscellaneous Notes Telephone Encounter - Caleb Dewey MD - 07/12/2022 11:26 AM CDT Script Eprescribed to pharmacy [place] Prescription Monitoring Program checked Signed Prescriptions: Disp Refills pregabalin (LYRICA) 25 MG capsule 60 cap*0 Sig: Take 1 capsule (25 mg) by mouth 2 times daily Authorizing Provider: CALEB DEWEY MD Telephone Encounter - Paula Ray CMA - 07/12/2022 9:50 AM CDT Received fax request from [facility] [address] [place] [address] [place] [address] pharmacy requesting refill(s) for pregabalin (LYRICA) 25 MG capsule Last refilled on 06/23/2022 Pt last seen on 06/23/2022 Next appt scheduled for None Will facilitate refill. Paula Cruz MA [facility] documented in this encounter Plan of Treatment Upcoming Encounters Date Type Specialty Care Team Description 10/21/2022 Office Visit Pulmonology Obdulio Barrera MD [address] [address] (Wo rk) 10/25/2022 PRE VISIT ENT Charo Burton MD Previsit [address] [place] [address] (Wo rk) 10/25/2022 Office Visit ENT Charo Burton MD [address] [place], [place] [address] (Wo rk) 10/25/2022 Office Visit ENT Provider, Jeannette Ent Dysphonia Edge Trimmer 10/25/2022 Virtual Visit Pain & Palliative Care [place] Deluna[place] PhD [address] [place], [place] [address] 10/28/2022 Appointment Speech Therapy Anabel Chew, MEAT AND SEAFOOD CLERK [address] [address]605 (Wo rk) 11/17/2022 Appointment Speech Therapy Anabel Chew, MEAT AND SEAFOOD CLERK [address] [phone] (Wo rk) 12/01/2022 Office Visit Pain & [place] [address] [place], [place] [address] (Wo rk) 12/23/2022 Office Visit Neurology Colby Yeung MD [address] [place], [place] [address] (Wo rk) documented as of this encounter Goals Goal Patient Goal Associated Recent Patient-Stated? Author Type Problems Progress Attend Speciality Care Plan Establish Care 50% Claudia Tee rn, Appointments (10/10/2022 Mago Murray, (ALL PURPOSE CLERK, 9:29 AM OIL RAG WASHER) [facility] Psychiatry, Counseling, and the Sleep Clinic) Note: Formatting of this note is differe nt from the original. Barriers: Appointment availability. Strengths: Recognition of need, Care Painter Plate rdination involvement. Patient expressed understanding of goal: Yes Action steps to achieve this goal: 1. I will attend necessary OBGYN appoint ments (completed) 2. I will have a sleep study done (compl eted) 3. I understand the CHW will request a s james dentist referral from PCP (completed) 4. I will schedule sleep dentist appoint ment when referral placed 5.I will continue going to psychiatry ap pointments for counseling and medication adjustments, in progress/ongoing. 6. I will attend my appointment on: 08/16/2022 9:45 AM Lesly Celaya MD [facility] [place] To address painful lumps in my abdomin [...] No Mago Swift well-managed. self-managed 9:29 AM OIL RAG WASHER) MMARISA W Note: Formatting of this note [...] documented as of this encounter Care Teams Laboratory Animal Facility Supervisor Relationship Specialty Start Date End Date Aydee Burton, PCP - General Nurse Practitioner - 05/17/21 COAL EQUIPMENT OPERATOR ANESTHESIOLOGIST AND CRITICAL CARE Family [address] [place], [place] [phone] Aydee Burton, Assigned PCP 04/28/21 COAL EQUIPMENT OPERATOR ANESTHESIOLOGIST AND CRITICAL CARE [address] [place], [place] [phone] Louisa Hood, Assigned Neuroscience 07/11/21 COAL EQUIPMENT OPERATOR ANESTHESIOLOGIST AND CRITICAL CARE Provider [address] [place], [place] [address] [place], Assigned Sleep 08/01/21 Angel Turcios, Provider [address] [place] [address] 106 [place], [place] [address] Lesly Celaya MD Assigned Surgical 09/05/21 [address] [facility] Provider [place], [place] [address] [facility] 09/30/21 Worker Ramses Mcpherson Assigned OBGYN 11/07/21 MD On[facility] Provider [address] [place], [place] [address] Obdulio Barrera MD Critical Care 01/24/[address] [place] [phone] Obdulio Barrera, Assigned Pulmonology 02/06/[address] [place] [phone] Lesvia Stanley EP Cardiac Rehabilitation 03/03/22 03/03/23 [facility] Therapist [address] [id number] Marilia Deluna, PhD Assigned Behavioral 02/20/22 [address] [facility] [place] [place] [address] Niyah Decker, [facility] Pharmacist Pharmacist 03/07/22 420 [facility] [address]12 [place] [address] Lesvia Stanley EP Cardiac Rehabilitation 03/17/22 03/17/23 [facility] Therapist [address] [place] [id number] Delia Avila, Pharmacist Pharmacist 06/07/22 [facility] [address] [place] [address] Mago Swift, [facility] Lead Sheet Taker Tentering Machine Off Bearer - 08/05/21 Clinical Niyah Decker, [facility] Assigned MTM 06/25/22 07/29/22 420 [facility] 812 [place] [address] documented as of this encounter
--- OUTSIDE RECORDS SUMMARY | 2022-10-21 08:49 | XMS_ITS | Encounter Summary ---
:1980 Author Organization [facility] Address [address] [place] [address] Care Team Providers Name Role Phone Aydee Burton LODE MINER BLASTING MANAGER PRIVATE Primary Care Provider Aydee Burton LODE MINER BLASTING MANAGER PRIVATE Unavailable [phone] Louisa Hood LODE MINER BLASTING MANAGER PRIVATE Unavailable [phone] Angel Hannah MD Unavailable Lesly Celaya MD Unavailable Tawana Patel MA Unavailable Unavailable Ramses Mcpherson MD Unavailable [phone] Obdulio Barrera MD Unavailable [phone] Obdulio Barrera MD Unavailable [phone] Lesvia Stanley EP Unavailable Marilia Deluna PhD Unavailable Niyah Decker [facility] Unavailable Lesvia Stanley Unavailable Delia Avila [facility] Unavailable [phone] Mago Swift [facility] Unavailable Niyah Decker [facility] Unavailable Encounter Details Date Type Department [...] often do you attend roman catholic or scientologist services? Never 08/05/2021 Do you [...] at Date Recorded Female 11/09/2021 7:53 PM FREELANCE DIGITAL PROJECT MANAGER COVID-19 Exposure Response Date Recorded In the last 10 days, have you been in contact with No / Unsu re 07/13/2022 3:24 PM CDT someone who was confirmed or suspected to have Coronavirus/COVID-19? documented as of this encounter Plan of Treatment Upcoming Encounters Date Type Specialty Care Team Description 10/21/2022 Office Visit Pulmonology Obdulio Barrera MD 420 [facility] 276 [place], [place] [address] (Wo rk) 10/25/2022 PRE VISIT ENT Charo Burton MD Previsit 909 [place], [place] [address] (Wo rk) 10/25/2022 Office Visit ENT Charo Burton MD [address] [place] [phone] (Wo rk) 10/25/2022 Office Visit ENT Provider, Ent Dysphonia Design Studio Consultant 10/25/2022 Virtual Visit Pain & Palliative [place] [address] [place], [place] [address] 10/28/2022 Appointment Speech Therapy Anabel Chew, SAWDUST DRIER [address] [place], [place] [address] (Wo rk) 11/17/2022 Appointment Speech Therapy Anabel Chew, SAWDUST DRIER [address] [place], [place] [address] (Wo rk) 12/01/2022 Office Visit Pain [place] [address] [place], [place] [address] (Wo rk) 12/23/2022 Office Visit Neurology Colby Yeung MD [address] [place] [address] (Wo rk) documented as of this encounter Goals Goal Patient Goal Associated Recent Patient-Stated? Author Type Problems Progress Attend Speciality Care Plan Establish Care 50% No Karene rn, Appointments (10/10/2022 Mago Murray, (ACCOUNT DEVELOPMENT EXECUTIVE, 9:29 AM FREELANCE DIGITAL PROJECT MANAGER) [facility] Psychiatry, Counseling, and the Sleep Clinic) Note: Formatting of this note is differe nt from the original. Barriers: Appointment availability. Strengths: Recognition of need, Care Lodge Officer rdination involvement. Patient expressed understanding of [...] on: 08/16/2022 9:45 AM Lesly Celaya MD [facility] To address painful lumps in my abdomin [...] No Mago Swift well-managed. self-managed 9:29 AM FREELANCE DIGITAL PROJECT MANAGER) MARISA Murray W Note: Formatting of [...] documented as of this encounter Care Teams Stone Spreader Operator Relationship Specialty Start Date End Date Aydee Burton, PCP - General Nurse Practitioner - 05/17/21 LODE MINER BLASTING MANAGER PRIVATE Family [address] [place] [address]42 Aydee Burton, Assigned PCP 04/28/21 LODE MINER BLASTING MANAGER PRIVATE [address] [place] [phone] Louisa Hood, Assigned Neuroscience 07/11/21 LODE MINER BLASTING MANAGER PRIVATE Provider [address] [place], [place] [phone] [place], Assigned Sleep 08/01/21 Angel Turcios, Provider [address] [place], [place] [phone] Lesly Celaya MD Assigned Surgical 09/05/21 [address] Provider [place], [place] [address] Tawana Patel MA [facility] 09/30/21 Worker Ramses Mcpherson Assigned OBGYN 11/07/21 MD [facility] Provider [address] [place] [address] Obdulio Barrera MD Critical Care 01/24/[address] [place] [address] [facility] [address] [place], [place] [address] Obdulio Barrera, Assigned Pulmonology 02/06/22 MD Provider 420 [facility] [address] [place], [place] [address] Lesvia Stanley, GHADA Cardiac Rehabilitation 03/03/22 03/03/23 [facility] Therapist [address] [place] [address] Marilia Deluna, PhD Assigned Behavioral 02/20/22 [address] [facility] [place] [address] Niyah Decker, [facility] Pharmacist Pharmacist 03/07/[address] [place] [address] 812 [place] [address] Lesvia Stanley, GHADA Cardiac Rehabilitation 03/17/22 03/17/23 [facility] Therapist [address] [place] [address] Delia Avila, Pharmacist Pharmacist 06/07/22 [facility] 909 [place] [address] Mago Swift, [facility] Lead Dietary Manager Customs Officer - 08/05/21 Clinical Niyah Decker, [facility] Assigned MTM 06/25/22 07/29/[address] [place] [address] 812 [place] [address] documented as of this encounter
--- OUTSIDE RECORDS SUMMARY | 2022-10-21 08:49 | XMS_ITS | Encounter Summary ---
:1980 Author Organization [facility] Address [address] [place] [address] Care Team Providers Name Role Phone Aydee Burton BUSINESS TRANSFORMATION MANAGER SAND MILL OPERATOR FACING SAND Primary Care Provider Aydee Burton BUSINESS TRANSFORMATION MANAGER SAND MILL OPERATOR FACING SAND Unavailable [phone] Louisa Hood BUSINESS TRANSFORMATION MANAGER SAND MILL OPERATOR FACING SAND Unavailable [phone] Angel Hannah MD Unavailable Lesly Celaya MD Unavailable Tawana Patel MA Unavailable Unavailable Ramses Mcpherson MD Unavailable [phone] Obdulio Barrera MD Unavailable [phone] Obdulio Barrera MD Unavailable [phone] Lesvia Stanley EP Unavailable Marilia Deluna PhD Unavailable Niyah Decker [facility] Unavailable Lesvia Stanley Unavailable Delia Avila [facility] Unavailable [phone] Mago Swift [facility] Unavailable Niyah Decker [facility] How often do you attend quaker or denominational services? Never 08/05/2021 Do you [...] at Date Recorded Female 11/09/2021 7:53 PM BOX BLANK MACHINE OPERATOR HELPER COVID-19 Exposure Response Date Recorded In the last 10 days, have you been in contact with No / Unsu re 07/11/2022 12:53 PM CDT someone who was confirmed or suspected to have Coronavirus/COVID-19? documented as of this encounter Plan of Treatment Upcoming Encounters Date Type Specialty Care Team Description 10/21/2022 Office Visit Pulmonology Obdulio Barrera MD 420 [facility] 276 [place], [place] [address] (Wo rk) 10/25/2022 PRE VISIT ENT Charo Burton MD Previsit [address] [place], [place] [address] (Wo rk) 10/25/2022 Office Visit ENT Charo Burton MD [address] [place] [phone] (Wo rk) 10/25/2022 Office Visit ENT Provider, Ent Dysphonia Hoe Runner 10/25/2022 Virtual Visit Pain & Palliative Care [place] [address] [place], [place] [address] 10/28/2022 Appointment Speech Therapy Anabel Chew, DINING ROOM HELPER [address] [place], [place] [address] (Wo rk) 11/17/2022 Appointment Speech Therapy Anabel Chew, DINING ROOM HELPER [address] [place], [place] [address] (Wo rk) 12/01/2022 Office Visit Pain & [place] [address] [place], [place] [address] (Wo rk) 12/23/2022 Office Visit Neurology Colby Yeung MD [address] [place] [address] (Wo rk) documented as of this encounter Goals Goal Patient Goal Associated Recent Patient-Stated? Author Type Problems Progress Attend Speciality Care Plan Establish Care 50% No Karene rn, Appointments (10/10/2022 Mago Murray, (COMMUNITY HEALTH WORKER, 9:29 AM BOX BLANK MACHINE OPERATOR HELPER) [facility] Psychiatry, Counseling, and the Sleep Clinic) Note: Formatting of this note is differe nt from the original. Barriers: Appointment availability. Strengths: Recognition of need, Care Instrument/Control Technician rdination involvement. Patient expressed understanding of [...] AM Lesly Celaya MD [facility] To address painful lumps in my [...] No Mago Swift well-managed. self-managed 9:29 AM BOX BLANK MACHINE OPERATOR HELPER) MARISA Murray W Note: Formatting of this [...] documented as of this encounter Care Teams Hoe Runner Relationship Specialty Start Date End Date Aydee Burton, PCP - General Nurse Practitioner - 05/17/21 BUSINESS TRANSFORMATION MANAGER SAND MILL OPERATOR FACING SAND Family [address] [place] [phone] Aydee Burton, Assigned PCP 04/28/21 BUSINESS TRANSFORMATION MANAGER SAND MILL OPERATOR FACING SAND [address] [place] [phone] Louisa Hood, Assigned Neuroscience 07/11/21 BUSINESS TRANSFORMATION MANAGER SAND MILL OPERATOR FACING SAND Provider 500 [place], [place] [phone] [place], Assigned Sleep 08/01/21 Angel Turcios, Provider [address] [place], [place] [phone] Lesly Celaya MD Assigned Surgical 09/05/21 [address] Provider [place], [place] [address] Tawana Patel MA [facility] 09/30/21 Worker Ramses Mcpherson Assigned OBGYN 11/07/21 MD Onesimo Provider [address] [place] [address] Obdulio Barrera MD Critical Care 01/24/[address] [place] [address] [facility] [address] [place], [place] [address] Obdulio Barrera, Assigned Pulmonology 02/06/22 MD Provider 420 [facility] 276 [place], [place] [address] Lsevia Stanley, GHADA Cardiac Rehabilitation 03/03/22 03/03/23 [facility] Therapist [address] [address] Marilia Deluna, PhD Assigned Behavioral 02/20/22 [address] [facility] [place] [address] Niyah Decker, [facility] Pharmacist Pharmacist 03/07/[address] [place] [address] 812 [place] [address] Lesvia Stanley, GHADA Cardiac Rehabilitation 03/17/22 03/17/23 [facility] Therapist [address] [place] [address] Delia Avila, Pharmacist Pharmacist 06/07/22 [facility] 9[address] [place] [address] Mago Swift, [facility] Lead Stencil Machine Operator Wind Farm Support Specialist - 08/05/21 Clinical Niyah Decker, [facility] Assigned MTM 06/25/22 07/29/[address] [place] [address] 812 [place] [address] documented as of this encounter
--- OUTSIDE RECORDS SUMMARY | 2022-10-21 08:49 | XMS_ITS | Encounter Summary ---
:1980 Author Organization [place] [facility] Address [address] [place] [address] Care Team Providers Name Role Phone Aydee Burton CHOIR DIRECTOR FIELD SPEC Primary Care Provider Aydee Burton CHOIR DIRECTOR FIELD SPEC Unavailable [phone] Louisa Hood CHOIR DIRECTOR FIELD SPEC Unavailable [phone] Angel Hannah MD Unavailable Lesly Celaya MD Unavailable Tawana Patel MA Unavailable Unavailable Ramses Mcpherson MD Unavailable [phone] Obdulio Barrera MD Unavailable [phone] Obdulio Barrera MD Unavailable [phone] Lesvia Stanley EP Unavailable Marilia Deluna PhD Unavailable Niyah Decker [facility] Unavailable Lesvia Stanley Unavailable Delia Avila [facility] Unavailable [phone] JamisonWinstone Terri [facility] Unavailable Niyah Decker [facility] Unavailable Reason for Visit Rehab Therapy Physical Therapy (Routine: Next available opening) - Pending Review Specialty Diagnoses / Procedures Referred By Contact Refer red To Contact Diagnoses Tension headache Cervicogenic headache Cervicalgia Colby Yeung MD [address] [address] Referral ID Status Reason Start Date Expiration Date Visits V isits Requested Authorized [id number] Pending 06/30/2022 06/30/2023 1 1 Review Encounter Details Date Type Department Care Team Description 07/11/[address] [facility] Bennett Yeung MD [address] [id number] Tension headache; Rehabilitation Services Una Reardon, PT [address] [place] [address] Cervicogenic headache; [facility] Cervica lgia; [facility] Neck pain [address] [facility] [address] [place], [place] [phone] Social History Tobacco Use Types Packs/Day Years [...] How often do you attend islam or yarsanism services? Never 08/05/2021 Do you [...] Recorded Female 11/09/2021 7:53 PM DIRECTOR OF MEDICAL EDUCATION COVID-19 Exposure Response Date Recorded In the last 10 days, have you been in contact with No / Unsu re 07/11/2022 12:53 PM CDT someone who was confirmed or suspected to have Coronavirus/COVID-19? documented as of this encounter Progress Notes Una Reardon, PT - 07/12/2022 8:07 AM CDT Images from the original note were not included. [facility] OUTPATIENT Physical Therapy ORTHOPEDIC EVALUATION PLAN OF TREATMENT FOR OUTPATIENT REHABILITATION (COMPLETE FOR INITIAL CLAIMS ONLY) Patient's Last Name, First Name, M.I. Date of : 1980 Marta Hill A Provider???s Name: [facility] Start of Care Date: 07/11/22 Onset [...] MD Alexys Iyer Shannon M, PT - 07/11/2022 1:10 PM CDT Physical Therapy Initial Evaluation Subjective: The history is provided by the patient. No world language teacher was used. Therapist Generated HPI Evaluation Problem [...] medication and sleep medication. 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: Computer [...] Sheet for this information) Short term and terminal worker goals: (See Goal Flow Sheet for this [...] Office Visit Pulmonology Obdulio Barrera MD [address] [place] [address] [phone] (Wo rk) 10/25/2022 PRE VISIT ENT Charo Burton MD Previsit [address] [place] [address] [phone] (Wo rk) 10/25/2022 Office Visit ENT Charo Burton MD [address] [place] [address] [phone] (Wo rk) 10/25/2022 Office Visit ENT Provider, Ent Dysphonia Good Humor Vendor 10/25/2022 Virtual Visit Pain & [place]iative [place] [address] [place], [place] [address] 10/28/2022 Appointment Speech Therapy Anabel Chew, FIELD SUPPORT REP [address] [phone] (Wo rk) 11/17/2022 Appointment Speech Therapy Anabel Chew, FIELD SUPPORT REP [address] [phone] (Wo rk) 12/01/2022 Office Visit Pain & [place] [address] [place], [place] [address] (Wo rk) 12/23/2022 Office Visit Neurology Colby Yeung MD [address] [place] [phone] (Wo rk) documented as of this encounter Goals Goal Patient Goal Associated Recent Patient-Stated? Author Type Problems Progress Attend Speciality Care Plan Establish Care 50% Claudia Tee rn, Appointments (10/10/2022 Mago Murray, (MINI BACCARAT DEALER, 9:29 AM DIRECTOR OF MEDICAL EDUCATION) [facility] Psychiatry, Counseling, and the Sleep Clinic) Note: Formatting of this note is differe nt from the original. Barriers: Appointment availability. Strengths: Recognition of need, Care Steel Post Installer Supervisor rdination involvement. Patient expressed understanding of [...] 08/16/2022 9:45 [address] [facility] [place] To address painful lumps in my abdomin [...] (10/10/2022 Mago Prieto well-managed. self-managed 9:29 AM DIRECTOR OF MEDICAL EDUCATION) MARISA Murray W Note: Formatting of this [...] Priority Date/Time Associated Diagnosis Comme nts [place] MANUAL THERAPY, EA Routine 07/12/2022 8:06 AM CDT Ten maria eugenia headache 15 MIN Cervicogenic hea dache Cervicalgia Neck pain documented in this encounter Visit Diagnoses Diagnosis Tension headache Cervicogenic headache Headache Cervicalgia Neck pain Cervicalgia documented in this encounter Additional Health Concerns Problem Noted Date Establish Care 07/05/2022 Chronic Pain is not self-managed 07/05/2022 Assessment Noted Time PHQ-9 Depression Total Score: 16 06/24/2022 9:31 AM CD T documented as of this encounter Care Teams Heat Treat Furnace Operator Relationship Specialty Start Date End Date Aydee Burton, PCP - General Nurse Practitioner - 05/17/21 CHOIR DIRECTOR FIELD SPEC Family [address] [place] [address] [phone] Aydee Burton, Assigned PCP 04/28/21 CHOIR DIRECTOR FIELD SPEC [address] [place] [address] [phone] Louisa Hood, Assigned Neuroscience 07/11/21 CHOIR DIRECTOR FIELD SPEC Provider [address] [place], [place] [address] [place], Assigned Sleep 08/01/21 Angel Turcios, Provider [address] [place], [place] [address] Lesly Celaya MD Assigned Surgical 09/05/21 [address] Provider [place], [place] [address] Tawana Patel MA [facility] 09/30/21 Worker Ramses Mcpherson Assigned OBGYN 11/07/21 MD Onesimo Provider [address] [place] [address] Obdulio Barrera MD Critical Care 01/24/[address] [place] [address] 276 [place] [address] Obdulio Barrera, Assigned Pulmonology 02/06/22 MD Provider [address] [place] [address] 276 [place], [place] [phone] Lesvia Stanley, [facility] Cardiac Rehabilitation 03/03/22 03/03/23 [facility] Therapist [address] [place] [phone] Marilia Deluna, PhD Assigned Behavioral 02/20/22 [address] [facility] [place] [place] [address] Niyah Decker, [facility] Pharmacist Pharmacist 03/07/[address] [place] [address] 812 [place], [place] [phone] Lesvia Stanley, [facility] Cardiac Rehabilitation 03/17/22 03/17/23 [facility] Therapist [address] [place] [id number] Delia Avila, Pharmacist Pharmacist 06/07/22 [facility] [address] [place] [address] [phone] Mago Swift, [facility] Lead Anatomy Teacher Commercial Front Load Driver - 08/05/21 Clinical Niyah Dekcer, [facility] Assigned MTM 06/25/22 07/29/22 420 [facility] 812 [place] [address] documented as of this encounter
--- OUTSIDE RECORDS SUMMARY | 2022-10-21 08:49 | XMS_ITS | Encounter Summary ---
:1980 Author Organization [facility] Address [address] [place] [address] Care Team Providers Name Role Phone Aydee Burton STEAM HOIST OPERATOR LUG BREAKER AND WIRE PULLER Primary Care Provider [phone] Aydee Burton STEAM HOIST OPERATOR LUG BREAKER AND WIRE PULLER Unavailable [phone] Louisa Hood STEAM HOIST OPERATOR LUG BREAKER AND WIRE PULLER Unavailable [phone] Angel Hannah MD Unavailable Lesly Celaya MD Unavailable Tawana Patel MA Unavailable Unavailable Ramses Mcpherson MD Unavailable [phone] Obdulio Barrera MD Unavailable [phone] Obdulio Barrera MD Unavailable [phone] Lesvia Stanley EP Unavailable Marilia Deluna PhD Unavailable Niyah Decker [facility] Unavailable Lesvia Stanley Unavailable Delia Avila [facility] Unavailable [phone] Mago Swift [facility] Unavailable Niyah Decker [facility] Unavailable Encounter Details Date Type Department Care [...] How often do you attend taoism or orthodoxy services? Never 08/05/2021 Do you [...] at Date Recorded Female 11/09/2021 7:53 PM ELECTRIC REFRIGERATOR PREPARER COVID-19 Exposure Response Date Recorded In the last 10 days, have you been in contact with No / Unsu re 07/08/2022 6:34 PM CDT someone who was confirmed or suspected to have Coronavirus/COVID-19? documented as of this encounter Plan of Treatment Upcoming Encounters Date Type Specialty Care Team Description 10/21/2022 Office Visit Pulmonology Obdulio Barrera MD 420 [facility] 276 [place], [place] [address] (Wo rk) 10/25/2022 PRE VISIT ENT Charo Burton MD Previsit [address] [place], [place] [phone] (Wo rk) 10/25/2022 Office Visit ENT Charo Burton MD [address] [place] [address] [phone] (Wo rk) 10/25/2022 Office Visit ENT Provider, Ent Dysphonia [employer] Flatbed Driver 10/25/2022 Virtual Visit Pain & Palliative Care [place] [address] [place], [place] [address] 10/28/2022 Appointment Speech Therapy Anabel Chew, DRY PAN CHARGER [address] [place], [place] [address] (Wo rk) 11/17/2022 Appointment Speech Therapy Anabel Chew, DRY PAN CHARGER [address] [place], [place] [address] (Wo rk) 12/01/2022 Office Visit Pain & [place] [address] [place], [place] [address] (Wo rk) 12/23/2022 Office Visit Neurology Colby Yeung MD [address] [place] [address] (Wo rk) documented as of this encounter Goals Goal Patient Goal Associated Recent Patient-Stated? Author Type Problems Progress Attend Speciality Care Plan Establish Care 50% No Karene rn, Appointments (10/10/2022 Mago Murray, (OFFICE MACHINE SERVICER, 9:29 AM ELECTRIC REFRIGERATOR PREPARER) [facility] Psychiatry, Counseling, and the Sleep Clinic) Note: Formatting of this note is differe nt from the original. Barriers: Appointment availability. Strengths: Recognition of need, Care Presser First rdination involvement. Patient expressed understanding of goal: [...] on: 08/16/2022 9:45 AM Lesly Celaya MD [facility] Surgery [facility] To address painful lumps in [...] No Mago Swift well-managed. self-managed 9:29 AM ELECTRIC REFRIGERATOR PREPARER) MARISA Murray W Note: Formatting of this [...] documented as of this encounter Care Teams Partner Integration Planner Relationship Specialty Start Date End Date Aydee Burton, PCP - General Nurse Practitioner - 05/17/21 STEAM HOIST OPERATOR LUG BREAKER AND WIRE PULLER Family [address] [place] [address] [phone] Aydee Burton, Assigned PCP 04/28/21 STEAM HOIST OPERATOR LUG BREAKER AND WIRE PULLER [address] [place] [address] [phone] Louisa Hood, Assigned Neuroscience 07/11/21 STEAM HOIST OPERATOR LUG BREAKER AND WIRE PULLER Provider [address] [place], [place] [phone] [place], Assigned Sleep 08/01/21 Angel Turcios, Provider [address] [place], [place] [phone] Lesly Celaya MD Assigned Surgical 09/05/21 [address] Provider [place], [place] [address] Tawana Patel MA [facility] 09/30/21 Worker Ramses Mcpherson Assigned OBGYN 11/07/21 MD Onesimo Provider [address] [place] [address] Obdulio Barrera MD Critical Care 01/24/[address] [place] [address] [facility] [address] [place], [place] [address] Obdulio Barrera, Assigned Pulmonology 02/06/22 MD Provider 420 [facility] 276 [place], [place] [address] Lesvia Stanley, GHADA Cardiac Rehabilitation 03/03/22 03/03/23 [facility] Therapist [address] [place] [address] Marilia Deluna, PhD Assigned Behavioral 02/20/22 [address] [facility] [place] [address] Niyah Decker, [facility] Pharmacist Pharmacist 03/07/[address] [place] [address] 812 [place] [address] Lesvia Stanley, GHADA Cardiac Rehabilitation 03/17/22 03/17/23 [facility] Therapist [address] [place] [address] Delia Avila, Pharmacist Pharmacist 06/07/22 [facility] 9[address] [place] [address] Mago Swift, [facility] Lead Nursery Laborer Laborer Poultry Hatchery - 08/05/21 Clinical Niyah Decker, [facility] Assigned MTM 06/25/22 07/29/[address] [place] [address] 812 [place] [address] documented as of this encounter
--- OUTSIDE RECORDS SUMMARY | 2022-10-21 08:50 | XMS_ITS | Encounter Summary ---
:1980 Author Organization [facility] Address [address] [place] [address] Care Team Providers Name Role Phone Aydee Burton BARIATRIC PROGRAM COORDINATOR MANAGER GYN Primary Care Provider Aydee Burton BARIATRIC PROGRAM COORDINATOR MANAGER GYN Unavailable [phone] Louisa Hood BARIATRIC PROGRAM COORDINATOR MANAGER GYN Unavailable [phone] Angel Hannah MD Unavailable Lesly Celaya MD Unavailable Tawana Patel MA Unavailable Unavailable Ramses Mcpherson MD Unavailable [phone] Obdulio Barrera MD Unavailable [phone] Obdulio Barrera MD Unavailable [phone] Lesvia Stanley EP Unavailable Mrailia Deluna PhD Unavailable Niyah Decker [facility] Unavailable Lesvia Stanley Unavailable Delia Avila [facility] Unavailable [phone] Mago Swift [facility] Unavailable Brianne Niyah Vania [facility] Unavailable Reason for Referral Rehab Therapy Physical Therapy (Routine: Next available opening) - Pending Review Specialty Diagnoses / Procedures Referred By Contact Refer red To Contact Diagnoses Tension headache Cervicogenic headache Cervicalgia Colby Yeung MD [address] [address] Referral ID Status Reason Start Date Expiration Date Visits V isits Requested Authorized [id number] Pending 06/30/2022 06/30/2023 1 1 Review Reason for Visit Reason Comments Consult Patient has headaches that g o into face/jaw Consultation (Routine: Next available opening) - Closed Specialty Diagnoses / Procedures Referred By Contact Refer red To Contact Diagnoses Bilateral occipital neuralgia Chronic tension-type headache, not intractable Chronic myofascial pain Lucas Anaya [facility] MD Romel [address] [place] [address] [place] [phone] Referral ID Status Reason Start Date Expiration Date Visits Requ ested Visits Authorized [id number] Closed 02/24/2022 02/24/2023 1 1 Encounter Details Date Type Department Care Team Description 06/30/2022 Office Visit [facility] [place] [address] [address] [phone] Tension headache (Primary Dx); Neurology Clinics - Colby Yeung MD [address] [id number] Bilateral occipital neuralgia; [place] Chronic myofascial pain; 6545 [facility] Cervicoge yannick headache; [facility] [address] Cervicalgia; [address] [address] Spell of altered cognition [phone] Social History Tobacco Use Types Packs/Day Years [...] How often do you attend religious or scientology services? Never 08/05/2021 Do you [...] at Date Recorded Female 11/09/2021 7:53 PM THIRD HAND COVID-19 Exposure Response Date Recorded In [...] CONSULTATION DATE OF VISIT: 06/30/2022 CLINIC LOCATION: [facility] PATIENT NAME: Marta Hill DATE of [...] and quetiapine. According to available notes from [facility], the patient was followed by multifactorial headache disorder in [phone]. Brain MRI at that time demonstrated non-specific T2 hyperintensities with wide differential. Botox injections were tried. She was also treated with topiramate, sertraline, tizanidine, and occipital nerve blocks. Reports several concussion during her teenage years without sequelae. Denies history of seizures or THUMB SEWER infections. Family history is positive for stroke, [...] additional abnormalities. According to scanned report from [facility] (10/25/2021), EMG of left upper [...] 2. Bilateral occipital neuralgia M54.81 Adult Neurology Photocopier Technician Referral 3. Chronic myofascial pain M79.18 Adult Neurology Photocopier Technician Referral G89.29 4. Cervicogenic headache G44.86 Physical [...] activities per the note. Colby Yeung MD [facility] Neurology (Chart documentation was completed in part with [employer] voice-recognition software. Even though reviewed, some grammatical, [...] Pulmonology Obdulio Barrera MD 420 [facility] 276 [place], [place] [address] (Wo rk) 10/25/2022 PRE VISIT ENT Charo Burton MD Previsit [address] [place] [address] [phone] (Wo rk) 10/25/2022 Office Visit ENT Charo Burton MD [address] [place] [address] [phone] (Wo rk) 10/25/2022 Office Visit ENT Provider, Ent Dysphonia Produce Laborer 10/25/2022 Virtual Visit Pain & Palliative [place] [address] [place], [place] [address] 10/28/2022 Appointment Speech Therapy Anabel Chew, POWER TOOL REPAIR TECHNICIAN [address] [place], [place] [address] (Wo rk) 11/17/2022 Appointment Speech Therapy Anabel Chew, POWER TOOL REPAIR TECHNICIAN [address] [place], [place] [address] (Wo rk) 12/01/2022 Office Visit Pain & [place] [address] [place], [place] [address] (Wo rk) 12/23/2022 Office Visit Neurology Colby Yeung MD [address] [place] [address] (Wo rk) Scheduled Referrals Name Type Priority [...] hrs Continuous Monitoring Result [facility] EEG #[id number] (Out-Patient Vi vitaliy-EEG Monitoring) Name: ? Marta [...] monitoring was utilized and periodically reviewed by process safety engineering technologist and the physician for electroclinical correl [...] as of this encounter Care Teams Mortgage Banker Relationship Specialty Start Date End Date Aydee Burton, PCP - General Nurse Practitioner - 05/17/21 BARIATRIC PROGRAM COORDINATOR MANAGER GYN Family [address] [place], [place] [address] Aydee Burton, Assigned PCP 04/28/21 BARIATRIC PROGRAM COORDINATOR MANAGER GYN [address] [place], [place] [address] Louisa Hood, Assigned Neuroscience 07/11/21 BARIATRIC PROGRAM COORDINATOR MANAGER GYN Provider [address] [place], [place] [phone] [place], Assigned Sleep 08/01/21 Angel Turcios, Provider [address] [phone] Lesly Celaya MD Assigned Surgical 09/05/21 [address] [facility] Provider [place], [place] [address] Tawana Patel MA [facility] 09/30/21 Worker Ramses Mcpherson Assigned OBGYN 11/07/21 MD Onesimo Provider [address] [place], [place] [phone] Obdulio Barrera MD Critical Care 01/24/[address] [place] [address] 276 [place], [place] [address] Obdulio Barrera, Assigned Pulmonology 02/06/22 MD Provider [address] [place] [address] [phone] Lesvia Stanley, GHADA Cardiac Rehabilitation 03/03/22 03/03/23 [facility] Therapist [address] [place] [phone] Marilia Deluna, PhD Assigned Behavioral 02/20/22 [address] [facility] Provider [place], [place] [address] Niyah Decker, [facility] Pharmacist Pharmacist 03/07/[address] [place] [address] 812 [place], [place] [address] Lesvia Stanley, EP Cardiac Rehabilitation 03/17/22 03/17/23 [facility] Therapist [address] [address] Delia Avila, Pharmacist Pharmacist 06/07/[address] [phone] Mago Swift, [facility] Lead Dope Edger [facility] Customer Service - 08/05/21 Clinical Niyah Decker, [facility] Assigned [place] 06/25/22 07/29/[address] [place] [address] 812 [place] [address] documented as of this encounter
--- OUTSIDE RECORDS SUMMARY | 2022-10-21 08:50 | XMS_ITS | Encounter Summary ---
:1980 Author Organization [place] Address [address] [place] [address] Care Team Providers Name Role Phone Aydee Burton PATTERN WEAVER CEMENTER MACHINE JOINER Primary Care Provider Aydee Burton PATTERN WEAVER CEMENTER MACHINE JOINER Unavailable [phone] Louisa Hood PATTERN WEAVER CEMENTER MACHINE JOINER Unavailable [phone] Angel Hannah MD Unavailable Lesly Celaya MD Unavailable Tawana Patel MA Unavailable Unavailable Ramses Mcpherson MD Unavailable [phone] Obdulio Barrera MD Unavailable [phone] Obdulio Barrera MD Unavailable [phone] Lesvia Stanley Unavailable Marilia Deluna PhD Unavailable Niyah Decker [facility] Unavailable Lesvia Stanley Unavailable Niyah Warner RN Unavailable Delia Avilazabeth [facility] Unavailable [phone] Delia Avila [facility] Unavailable [phone] [facility] Unavailable Encounter Details Date [...] How often do you attend yazdanism or advent services? Never 08/05/2021 Do you [...] at Date Recorded Female 11/09/2021 7:53 PM POWDER CARRIER COVID-19 Exposure Response Date Recorded In the last 10 days, have you been in contact with No / Unsu re 06/23/2022 11:31 AM CDT someone who was confirmed or suspected to have Coronavirus/COVID-19? documented as of this encounter Plan of Treatment Upcoming Encounters Date Type Specialty Care Team Description 10/21/2022 Office Visit Pulmonology Obdulio Barrera MD 420 [facility] [address] [place], [place] [address] (Wo rk) 10/25/2022 PRE VISIT ENT Charo Burton MD Previsit 909 [place], [place] [phone] (Wo rk) 10/25/2022 Office Visit ENT Charo Burton MD [address]09 [place], [place] [phone] (Wo rk) 10/25/2022 Office Visit ENT Provider, Ent Dysphonia Real Estate Firm Manager 10/25/2022 Virtual Visit Pain & Palliative [place] [address] [place], [place] [address] 10/28/2022 Appointment Speech Therapy Anabel Chew, TEACHER HEARING IMPAIRED [address] [place], [place] [address] (Wo rk) 11/17/2022 Appointment Speech Therapy Anabel Chew, TEACHER HEARING IMPAIRED [address] [place], [place] [address] (Wo rk) 12/01/2022 Office Visit Pain & [place] [address] [place], [place] [address] (Wo rk) 12/23/2022 Office Visit Neurology Colby Yeung MD [address] [place] [place] [phone] (Wo rk) documented as of this encounter Visit Diagnoses Not on filedocumented in this encounter Additional Health Concerns Assessment Noted Time PHQ-9 Depression Total Score: 19 06/14/2022 3:18 PM CD T documented as of this encounter Care Teams Phosphorus Processing Supervisor Relationship Specialty Start Date End Date Aydee Burton, PCP - General Nurse Practitioner - 05/17/21 PATTERN WEAVER CEMENTER MACHINE JOINER Family [address] [place], [place] [phone] Aydee Burton, Assigned PCP 04/28/21 PATTERN WEAVER CEMENTER MACHINE JOINER [address] [place], [place] [phone] Louisa Hood, Assigned Neuroscience 07/11/21 PATTERN WEAVER CEMENTER MACHINE JOINER Provider 500 [place] [address] [place], Assigned Sleep 08/01/21 Angel Turcios, Provider [address] [place], [place] [phone] Lesly Celaya MD Assigned Surgical 09/05/21 [address] [place] [address] Tawana Patel [facility] 09/30/21 Worker Ramses Mcpherson Assigned OBGYN 11/07/21 MD Onesimo Provider [address] [place], [place] [phone] Obdulio Barrera MD Critical Care 01/24/[address] 4[address] Obdulio Barrera, Assigned Pulmonology 02/06/[address] [address] Lesvia Stanley EP Cardiac Rehabilitation 03/03/22 03/03/23 [facility] Therapist [address] [place] [address] Marilia Deluna, PhD Assigned Behavioral 02/20/22 [address] [facility] [place] [place] [address] Niyah Decker, [facility] Pharmacist Pharmacist 03/07/[address] [place] [address] 812 [place], [place] [address] Lesvia Stanley, GHADA Cardiac Rehabilitation 03/17/22 03/17/23 [facility] Therapist [address] [place] [address] Niyah Warner, Lead Dungeon Master Primary Care - CC 06/27/22 RN Delia Avila, Pharmacist Pharmacist 06/07/[address] [phone] Delia Avila, Assigned [place] 06/11/2206/24 [facility] Pharmacist [address] [place] [address] [phone] Mago Swift, [facility] Lead Dungeon Master Paediatric Thoracic Physician - 08/05/21 Clinical documented as of this encounter
--- OUTSIDE RECORDS SUMMARY | 2022-10-21 08:50 | XMS_ITS | Encounter Summary ---
:1980 Author Organization [place] Address [address] [place] [address] Care Team Providers Name Role Phone Aydee Burton TRACTOR CRANE OPERATOR RESIDENTIAL CARE OFFICER Primary Care Provider Aydee Burton TRACTOR CRANE OPERATOR RESIDENTIAL CARE OFFICER Unavailable [phone] Louisa Hood TRACTOR CRANE OPERATOR RESIDENTIAL CARE OFFICER Unavailable [phone] Angel Hannah MD Unavailable Lesly Celaya MD Unavailable Tawana Patel MA Unavailable Unavailable Ramses Mcpherson MD Unavailable Obdulio Barrera MD Unavailable [phone] Obdulio Barrear MD Unavailable [phone] Lesvia Stanley EP Unavailable Marilia Deluna PhD Unavailable Niyah Decker [facility] Unavailable Lesvia Stanley Unavailable AustinOhDelia Mel [facility] Unavailable [phone] Mago Swift [facility] Unavailable Niyah Decker [facility] Unavailable Leela Jarvis [facility] Unavailable Niyah Decker [facility] Unavailable Marvin Miranda MD Unavailable Marvin Miranda MD Unavailable JosephClari jay [facility] Unavailable [phone] Encounter Details Date Type Department Care Team Description 07/05/2022 [facility] Aydee Burton APRN [facility] 4151 [facility] [address] [place] [address] [place], [place] [address]272 (Wo rk) Social History Tobacco Use Types [...] How often do you attend islam or scientologist services? 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/2021 7:53 PM SALES PROCESS MANAGER COVID-19 Exposure Response Date Recorded In the last 10 days, have you been in contact with No / Unsu re 07/08/2022 6:34 PM CDT someone who was confirmed or suspected to have Coronavirus/COVID-19? documented as of this encounter Miscellaneous Notes Telephone Encounter - Ciara Montejo RN - 07/08/2022 10:21 AM CDT Refill approved per [facility] refill protocol. Ciara Mg RN [facility] Triage documented in this encounter Plan of Treatment Upcoming Encounters Date Type Specialty Care Team Description 10/21/2022 Office Visit Pulmonology Obdulio Barrera MD [address] 6[address] (Wo rk) 10/25/2022 PRE VISIT ENT Charo Burton MD Previsit [address] [place] [phone] (Wo rk) 10/25/2022 Office Visit Charo Carter MD [address] [place] [phone] (Estefanía casanova) 10/25/2022 Office Visit ENT Provider, Jeannette Ent Dysphonia Field Mechanic 10/25/2022 Virtual Visit Pain & Palliative [place] [address] [place], [place] [address] 10/28/2022 Appointment Speech Therapy Anabel Chew, PRESENTATION TEAM MEMBER [address] [address]65[address] (Wo rk) 11/17/2022 Appointment Speech Therapy Anabel Chew, CELINE [address] [address] (Wo rk) 12/01/2022 Office Visit Pain & [place] [address] [place], [place] [address] (Wo rk) 12/23/2022 Office Visit Neurology Colby Yeung MD [address] [place], [place] [address] (Wo rk) documented as of this encounter Goals Goal Patient Goal Associated Recent Patient-Stated? Author Type Problems Progress Attend Speciality Care Plan Establish Care 50% No Randal rn, Appointments (10/10/2022 Mago Murray, (RESIDENCY COORDINATOR, 9:29 AM SALES PROCESS MANAGER) [facility] Psychiatry, Counseling, and the Sleep Clinic) Note: Formatting of this note is differe nt from the original. Barriers: Appointment availability. Strengths: Recognition of need, Care Angle Shearer rdination involvement. Patient expressed understanding of goal: [...] Celaya MD [facility] To address painful lumps in my abdomin [...] Chronic Pain is not 40% (10/10/2022 No Jamison, Mago well-managed. self-managed 9:29 AM SALES PROCESS MANAGER) M, LICS W Note: Formatting of [...] documented as of this encounter Care Teams Assistant Professor Of Marine Biology Relationship Specialty Start Date End Date Aydee Burton PCP - General Nurse Practitioner - 05/17/21 ELADIO Mendez RESIDENTIAL CARE OFFICER Family [address] [place], [place] [phone] Aydee Burton Assigned PCP 04/28/21 ELADIO Mendez RESIDENTIAL CARE OFFICER [address] [place], [place] [address] Louisa Hood Assigned Neuroscience 07/11/21 ELADIO Recinos RESIDENTIAL CARE OFFICER Provider 500 [place], [place] [address] [place], Assigned Sleep 08/01/21 Angel Turcios, Provider [address] [place], [place] [address] Lesly Celaya MD Assigned Surgical 09/05/21 [address] [place], [place] [address] [facility] 09/30[facility]21 MA Worker Ramses Mcpherson Assigned OBGYN 11/07/21 MD Onesimo Provider [address] [place], [place] [phone] Obdulio Barrera MD Critical Care 01/24/22 MD Leo 420 [facility] [address] [place], [place] [address] Obdulio Barrera Assigned Pulmonology 02/06/22 MD Leo Provider [address] 29230[address] Lesvia Stanley, Cardiac Rehabilitation 03/03/22 03/03/23 EP Therapist [employer] [address] [address] Marilia Deluna, Assigned Behavioral 02/20/22 PhD Health Provider [address] [place] [address] Niyah Decker, [facility] Pharmacist Pharmacist 03/07/[address] [place] [address] 812 [place], [place] [address] Lesvia Stanley, Cardiac Rehabilitation 03/17/22 03/17/23 EP Therapist [facility] [address] [place] [address] Delia Avila Pharmacist Pharmacist 06/07/22 JORDAN Leal 909 [facility] [place] 3[address]45 Mago Swift, Lead Rail Washer Vp Cardiovascular Service Line - 08/05/21 [facility] Clinical Niyah Decker, [facility] Assigned MTM 06/25/22 07/29/22 420 [facility] Pharmacist [address] [place], [place] [address] Leela Jarvis [facility] Pharmacist 07/26/22 05/15/[address] [facility] [address] [place] [phone] Niyah Decker [facility] Assigned MTM 08/10/22 09/16/22 420 [facility] Pharmacist [address] [place], [place] [address] Marvin Miranda MD Gastroenterology 09/21/[address] [place] [address] J 1-301 [place], [place] [phone] Marvin Miranda, Assigned 10/01/22 Gastroenterology 516 [facility] Provider [address] [place], [place] [address] Clari Ruiz Assigned MTM 09/17/22 Jocelyn [facility] Pharmacist [address] [place] [address] documented as of this encounter
--- OUTSIDE RECORDS SUMMARY | 2022-10-21 08:50 | XMS_ITS | Encounter Summary ---
:1980 Author Organization [place] Address [address] [place] [address] Care Team Providers Name Role Phone Aydee Burton MICROSOFT CRM DEVELOPER ALL SOURCE ANALYST Primary Care Provider Aydee Burton MICROSOFT CRM DEVELOPER ALL SOURCE ANALYST Unavailable [phone] Louisa Hood MICROSOFT CRM DEVELOPER ALL SOURCE ANALYST Unavailable [phone] Angel Hannah MD Unavailable Lesly Celaya MD Unavailable Tawana Patel MA Unavailable Unavailable Ramses Mcpherson MD Unavailable [phone] Obdulio Barrera MD Unavailable [phone] Obdulio Barrera MD Unavailable [phone] Lesvia Stanley EP Unavailable Marilia Deluna PhD Unavailable Niyah Decker [facility] Unavailable Lsevia Stanley Unavailable Delia Avila [facility] Unavailable [phone] Mago Swift [facility] Unavailable Niyah Decker [facility] Unavailable Encounter Details Date Type Department Care [...] How often do you attend mandaen or religion services? 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 COVID-19 Exposure Response Date Recorded In the [...] [facility] 276 [place], [place] [address] (Wo rk) 10/25/2022 PRE VISIT ENT Charo Burton MD Previsit 909 [place], [place] [address]85 (Wo rk) 10/25/2022 Office Visit ENT Charo Burton MD [address] [place] [phone] (Wo rk) 10/25/2022 Office Visit ENT Provider, Ent Dysphonia Clinical Care Coordinator 10/25/2022 Virtual Visit Pain & Palliative Care [place] [address] [place], [place] [address] 10/28/2022 Appointment Speech Therapy Anabel Chew, TOBACCO STEMMER [address] [place], [place] [address] (Wo rk) 11/17/2022 Appointment Speech Therapy Anabel Chew, TOBACCO STEMMER [address] [place], [place] [address] (Wo rk) 12/01/2022 Office Visit Pain [place] [address] [place], [place] [address] (Wo rk) 12/23/2022 Office Visit Neurology Colby Yeung MD [address] [place] [address] (Wo rk) documented as of this encounter Visit Diagnoses Not on filedocumented in this encounter Additional Health Concerns Assessment Noted Time PHQ-9 Depression Total Score: 16 06/24/2022 9:31 AM CD T documented as of this encounter Care Teams Cosmetologist Relationship Specialty Start Date End Date Aydee Burton, PCP - General Nurse Practitioner - 05/17/21 MICROSOFT CRM DEVELOPER ALL SOURCE ANALYST Family [address] [place] [address] Aydee Burton, Assigned PCP 04/28/21 MICROSOFT CRM DEVELOPER ALL SOURCE ANALYST [address] [place] [address] Louisa Hood, Assigned Neuroscience 07/11/21 MICROSOFT CRM DEVELOPER ALL SOURCE ANALYST Provider [address] [place], [place] [phone] [place], Assigned Sleep 08/01/21 Angel Turcios, Provider [address] [facility] [address] [facility] 106 [place], [place] [phone] Lesly Celaya MD Assigned Surgical 09/05/21 [address] Provider [place], [place] [phone] Tawana Patel [facility] 09/30/21 Worker Ramses Mcpherson Assigned OBGYN 11/07/21 MD Onesimo Provider [address] [place] [address] Obdulio Barrera MD Critical Care 01/24/[address] [place] [phone] Obdulio Barrera, Assigned Pulmonology 02/06/22 Provider [address] [address] Lesvia Stanley EP Cardiac Rehabilitation 03/03/22 03/03/23 [facility] Therapist [address] [phone] Marilia Deluna, PhD Assigned Behavioral 02/20/22 [address] [facility] Health Provider [place], [place] 4[address] Niyah Decker, [facility] Pharmacist Pharmacist 03/07/22 420 [facility] 812 [place] [address] Lesvia Stanley EP Cardiac Rehabilitation 03/17/22 03/17/23 [facility] Therapist [address] [place] [address] Delia Avila, Pharmacist Pharmacist 06/07/22 [facility] [address] [place] [address] Mago Swift, [facility] Lead Boat Dock Operator Electric Golf Cart Repairers - 08/05/21 Clinical Niyah Decker, [facility] Assigned MTM 06/25/22 07/29/22 420 [facility] 812 [place] [address] documented as of this encounter
--- OUTSIDE RECORDS SUMMARY | 2022-10-21 08:50 | XMS_ITS | Encounter Summary ---
:1980 Author Organization [place] Address [address] [place] [address] Care Team Providers Name Role Phone Aydee Burton ABRADING MACHINE TENDER INTEGRATION MANAGER Primary Care Provider Aydee Burton ABRADING MACHINE TENDER INTEGRATION MANAGER Unavailable [phone] Louisa Hood ABRADING MACHINE TENDER INTEGRATION MANAGER Unavailable [phone] Angel Hannah MD Unavailable Lesly Celaya MD Unavailable Tawana Patel MA Unavailable Unavailable Ramses Mcpherson MD Unavailable [phone] Obdulio Barrera MD Unavailable [phone] Obdulio Barrera MD Unavailable [phone] Lesvia Stanley Unavailable Marilia Deluna PhD Unavailable Niyah Decker [facility] Unavailable Lesvia Stanley Unavailable Niyah Warner RN Unavailable Delia Avila [facility] Unavailable [phone] Delia Avila [facility] Unavailable [phone] Mago Swift [facility] Unavailable Reason for Referral Diagnostic Imaging Ultrasound (Routine) - Pending Review Specialty Diagnoses / Procedures Referred By Contact Refer red To Contact Diagnoses Enlarged thyroid Aydee Burton APRN Procedures US Thyroid INTEGRATION MANAGER [address] [place] [address] Referral ID Status Reason Start Date Expiration Date Visits V isits Requested Authorized [id number] Pending 06/14/2022 06/14/2023 1 1 Review Reason for Visit Diagnostic Imaging Ultrasound (Routine) - Pending Review Specialty Diagnoses / Procedures Referred By Contact Refer red To Contact Diagnoses Enlarged thyroid Aydee Burton APRN Procedures US Thyroid INTEGRATION MANAGER [address] [place] [address] Referral ID Status Reason Start Date Expiration Date Visits V isits Requested Authorized [id number] Pending 06/14/2022 06/14/2023 1 1 Review Encounter Details Date Type Department Care Team Description 06/16/2022 Hospital Encounter [facility] Aydee Burton rged thyroid [facility] ELADIO Mendez INTEGRATION MANAGER [address] [place] [address] [place], [place] [phone] (Wo rk) Social History Tobacco Use Types [...] How often do you attend yazidism or synagogue services? 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 COVID-19 Exposure Response Date Recorded In [...] mouth At capsuleIndications: Bedtime Bilateral occipital neuralgia methocarbamol Take 1-1.5 tablets 90 tablet 1 05/14/202209/2022 (ROBAXIN) 500 MG (500-750 mg) by mouth tabletIndications: 3 times daily as Chronic myofascial needed for muscle pain, Trigger point of spasms shoulder region, unspecified laterality omeprazole (PRILOSEC) Take 1 capsule (20 60 capsule 1 202106/24/[address] mg) by mouth 2 times capsuleIndications: daily Chronic cough ondansetron (ZOFRAN Take 1 tablet (4 mg) 20 tablet 0 202107/08/2022 ODT) 4 MG ODT by mouth every 8 tabIndications: S/P hours as needed for laparoscopic nausea hysterectomy tiotropium (SPIRIVA) Inhale 1 capsule (18 30 capsule 3 06/0610/11/2022 18 MCG inhaled mcg) into the lungs capsuleIndications: daily SOB (shortness of breath) documented as of this encounter Miscellaneous Notes Result Encounter Note - Aydee Burton APRN INTEGRATION MANAGER - 06/16/2022 11:59 PM CDT Dear Marta, [...] due on 06/11/2022 Please call us at [phone] (or use [employer]) to address the above recommendations if needed. Thank you for choosing [facility]. It was an honor and a privilege to participate in your care. Healthy regards, Aydee Burton, COTTON OPENER [facility] documented in this encounter Plan of Treatment Upcoming Encounters Date Type Specialty Care Team Description 10/21/2022 Office Visit Pulmonology Obdulio Barrera MD [address] [address] (Wo rk) 10/25/2022 PRE VISIT ENT Charo Burton MD Previsit [address] [place] [phone] (Wo rk) 10/25/2022 Office Visit ENT Charo Burton MD [address] [place] [address] [phone] (Wo rk) 10/25/2022 Office Visit ENT Provider, Ent Dysphonia Finance Consultant 10/25/2022 Virtual Visit Pain & Palliative [place] [address] [place], [place] [address] 10/28/2022 Appointment Speech Therapy Anabel Chew, ENGLISH AS A SECOND LANGUAGE TEACHER [address] [address] (Wo rk) 11/17/2022 Appointment Speech Therapy Anabel Chew, ENGLISH AS A SECOND LANGUAGE TEACHER [address] [address]307[address] (Wo rk) 12/01/2022 Office Visit Pain [place] [address] [place], [place] [address] (Wo rk) 12/23/2022 Office Visit Neurology Colby Yeung MD [address] [place] 68[address] (wo rk) documented as of this encounter Procedures Procedure [...] Reyes et al. Journal of t he [employer] [place] [employer] 2017. Volume 14 (2017), Issue 5, 480-735. Narrative 06/16/2022 9:41 PM CDT EXAM: US THYROID LOCATION: [facility] DATE/TIME: 06/16/2022 5:03 PM INDICATION: Thyroid gland [...] from the original. EXAM: US THYROID LOCATION: [facility] DATE/TIME: 06/16/2022 5:03 PM INDICATION: Thyroid gland [...] Reyes et al. Journal of t he [employer] [place] [employer] 2017. Volume 14 (2017), Issue 5, [phone]. Aydee Burton ABRADING MACHINE TENDER INTEGRATION MANAGER IMG US ORDERABLES documented in this encounter Visit Diagnoses Diagnosis Enlarged thyroid Goiter, unspecified documented in this encounter Additional Health Concerns Assessment Noted Time PHQ-9 Depression Total Score: 19 06/14/2022 3:18 PM CD T documented as of this encounter Care Teams Fundraising Director Relationship Specialty Start Date End Date Aydee Burton, PCP - General Nurse Practitioner - 05/17/21 ABRADING MACHINE TENDER INTEGRATION MANAGER Family [address] [place] [address] [phone] Aydee Burton, Assigned PCP 04/28/21 ABRADING MACHINE TENDER INTEGRATION MANAGER [address] [place] [address] [phone] Louisa Hood, Assigned Neuroscience 07/11/21 ABRADING MACHINE TENDER INTEGRATION MANAGER Provider [address] [place], [place] [phone] [place], Assigned Sleep 08/01/21 Angel Turcios, Provider [address] [place], [place] [address] Lesly Celaya MD Assigned Surgical 09/05/21 [address] Provider [place], [place] [phone] Tawana Patel MA [facility] 09/30/21 Worker Ramses Mcpherson Assigned OBGYN 11/07/21 MD Onesimo Provider [address] [place], [place] [phone] Obdulio Barrera MD Critical Care 01/24/[address] [place] [address] 276 [place] [address] Obdulio Barrera, Assigned Pulmonology 02/06/22 MD Provider [address] [place] [address] 276 [place] [address] Lesvia Stanley, EP Cardiac Rehabilitation 03/03/22 03/03/23 [facility] Therapist [address] [place] [address] Marilia Deluna, PhD Assigned Behavioral 02/20/22 [address] [facility] [address] Niyah Decker, [facility] Pharmacist Pharmacist 03/07/[address] [place] [address] 812 [place], [place] [address] Lesvia Stanley, EP Cardiac Rehabilitation 03/17/22 03/17/23 [facility] Therapist [address] [place], [place] [address] Niyah Warner, Lead Billiard Parlor Manager Primary Care - CC 06/27/22 RN Delia Avila, Pharmacist Pharmacist 06/07/[address] [address] Delia Avila, Assigned MTM 06/11/2206/24 [facility] Pharmacist [address] [place] [address] [phone] Mago Swift, [facility] Lead Billiard Parlor Manager Metal Fitter - 08/05/21 Clinical documented as of this encounter
--- OUTSIDE RECORDS SUMMARY | 2022-10-21 08:50 | XMS_ITS | Encounter Summary ---
:1980 Author Organization [facility] Address [address] [place] [address] Care Team Providers Name Role Phone Aydee Burton HEEL SORTER INK JET OPERATOR Primary Care Provider Aydee Burton HEEL SORTER INK JET OPERATOR Unavailable [phone] Louisa Hood HEEL SORTER INK JET OPERATOR Unavailable [phone] Angel Hannah MD Unavailable Lesly Celaya MD Unavailable Tawana Patel MA Unavailable Unavailable Ramses Mcpherson MD Unavailable [phone] Obdulio Barrera MD Unavailable [phone] Obdulio Barrera MD Unavailable [phone] Lesvia Stanley Unavailable Marilia Deluna PhD Unavailable Niyah Decker [facility] Unavailable Lesvia Stanley Unavailable Niayh Warner RN Unavailable DaniiDelia virgen [facility] Unavailable [phone] Delia Avila [facility] Unavailable [phone] JamisonMago [facility] Unavailable Reason for Referral Diagnostic Imaging MRI (Routine) - Closed Specialty Diagnoses / Procedures Referred By Contact Refer red To Contact Diagnoses Cervical radiculopathy Caleb Dewey MD Procedures MR Cervical Spine w/o Contrast [address] [place] [address] Referral ID Status Reason Start Date Expiration Date Visits Requ ested Visits Authorized [id number] Closed 06/23/2022 06/23/2023 1 1 Reason for Visit Reason Comments Pain Encounter Details Date Type Department Care Team Description 06/23/2022 Office Visit [facility] Caleb Dewey, Chroni c pain syndrome (Primary Dx); Pain Management Cervicogenic headache; [place] [address] [place] Cervical radiculopathy; [address] [place], [place] Neuropathic pain [address] [address] [place], [place] [address] Social History Tobacco Use Types Packs/Day Years [...] How often do you attend yarsani or zoroastrianism services? Never 08/05/2021 Do you [...] at Date Recorded Female 11/09/2021 7:53 PM PULMONOLOGY PHYSICIAN COVID-19 Exposure Response Date Recorded In [...] documented in this encounter Patient Instructions Patient InstructionsCaleb Dewey MD - 06/23/2022 11:30 AM CDT Discontinue Gabapentin and start Lyrica 25mg twice a day. This is less sedating and has less side effects. Discuss decreasing your seroquel with your psychiatrist. Go to the neurologist. We could discuss doing a radiofrequency ablation based on what the neurologist says. I ordered a neck MRI Call to schedule this. [facility] locations: [facility] Call: [phone] 08/10/2022 @ 1:30PM follow up appointment. I will call you with the results of the MRI before this. Caleb Dewey MD documented in this encounter Progress Notes Caleb Dewey MD - 06/23/2022 11:30 AM CDT Images from the original note were not included. [facility] Date of visit: 06/23/2022 [...] out. - Her insurance will not cover vision care associate but she is thinking about calling her insurance to ask where she can go. - She had PT for her neck here in the past and it was helpful at the time. - She has an appointment to see a neurologist at the [facility] for her headaches and has this scheduled for next week. - She fell at work and broke her left elbow (work comp) Dr. Linder at [facility]. She has severe asthma and may not be a candidate to have her screws taken out. She is seeing her resource protection specialist later this monthand hopes to be cleared for surgery. - Administrative Appeals Tribunal Member is Dr. Barrera through [facility]. - Entire head hurts, neck and jaw, [...] gets sedated on it. - Lives [place] minutes. - Kids are 20, 18, 15, 13, 11 and 10 years old and she is . This went through in 2019 and she has shared custody 50:50. [place] COOLER DELIVERER REVIEWED TODAY: YES Gabapentin 300mg #240 05/15/2022 [...] 2021 BOTOX injections many years ago at [facility] IMAGING: NONE LABS: NONE Medications: Current Outpatient [...] has been diagnosed with occipital neuralgia at [facility] years ago. Currently they are experiencing [...] a new neurologist - previously went to [facility] and has tried botox in the past [...] Office Visit Pulmonology Obdulio Barrera MD [address] [place] [address] (Estefanía rk) 10/25/2022 PRE VISIT Charo Carter MD Previsit [address] [place] [address] (Estefanía casanova) 10/25/2022 Office Visit Charo Carter MD [address] [place] [address] [phone] (Estefanía casanova) 10/25/2022 Office Visit ENT Provider, Jeannette Ent Dysphonia Endocrinologist 10/25/2022 Virtual Visit Pain & [place]iative [place] [address] [place], [place] [address] 10/28/2022 Appointment Speech Therapy Anabel Chew, CELINE [address] [phone] (Wo rk) 11/17/2022 Appointment Speech Therapy Anabel Chew SLP [address] 166775 (Wo rk) 12/01/2022 Office Visit Pain & [place] [address] [place], [place] [address] (Wo rk) 12/23/2022 Office Visit Neurology Colby Yeung MD [address] [place], [place] [address] (Wo rk) documented as of this encounter Results MR [...] EXAM: MR CERVICAL SPINE W/O CONTRAST [facility] DATE/TIME: 07/08/2022 7:24 PM INDICATION: ??Cervical radiculopathy [...] EXAM: MR CERVICAL SPINE W/O CONTRAST LOCATION: [facility] DATE/TIME: 07/08/2022 7:24 PM INDICATION: Cervical radiculopathy [...] Assessment Noted Time PHQ-9 Depression Total Score: 06/14/2022 3:18 PM CD T documented as of this encounter Care Teams Security Professionals Relationship Specialty Start Date End Date Aydee Burton, PCP - General Nurse Practitioner - 05/17/21 HEEL SORTER INK JET OPERATOR Family [address] [place], [place] [address] Aydee Burton, Assigned PCP 04/28/21 HEEL SORTER INK JET OPERATOR [address] [place], [place] [address] Louisa Hood, Assigned Neuroscience 07/11/21 HEEL SORTER INK JET OPERATOR Provider [address] [place] [address] [place], Assigned Sleep 08/01/21 Angel Turcios, Provider [address] [place] [address] Lesly Celaya MD Assigned Surgical 09/05/21 [address] [facility] [place] [place] [address] Tawana Patel MA [facility] 09/30/21 Worker Ramses Mcpherson Assigned OBGYN 11/07/21 MD Onesimo Provider [address] [place], [place] [address] Obdulio Barrera MD Critical Care 01/24/[address] [place] [address] 276 [place], [place] [address] Obdulio Barrera, Assigned Pulmonology 02/06/22 MD Provider [address] [place] [address] 276 [place], [place] [address] Lesvia Stanley, GHADA Cardiac Rehabilitation 03/03/22 03/03/23 [facility] Therapist [address] [place] [place] [id number] Marilia Deluna, PhD Assigned Behavioral 02/20/22 [address] [facility] Provider [place], [place] [address] Niyah Decker, [facility] Pharmacist Pharmacist 03/07/[address] [place] [address] 812 [place], [place] [address] Lesvia Stanley, GHADA Cardiac Rehabilitation 03/17/22 03/17/23 [facility] Therapist [address] [place] [address] Niyah Warner, Lead Cabinet Installer Primary Care - CC 06/27/22 RN Delia Avila, Pharmacist Pharmacist 06/07/[address] [address] Delia Avila, Assigned MTM 06/11/2206/24 [facility] Pharmacist [address] [place] [address] Mago Swift [facility] Lead Cabinet Installer Resident Programs Assistant - 08/05/21 Clinical documented as of this encounter
--- OUTSIDE RECORDS SUMMARY | 2022-10-21 08:50 | XMS_ITS | Encounter Summary ---
:1980 Author Organization [facility] Address [address] [place] [address] Care Team Providers Name Role Phone Aydee Burton BEE WORKER MARKETING SERVICES COORDINATOR Primary Care Provider Aydee Burton BEE WORKER MARKETING SERVICES COORDINATOR Unavailable [phone] Louisa Hood BEE WORKER MARKETING SERVICES COORDINATOR Unavailable [phone] Angel Hannah MD Unavailable Lesly Celaya MD Unavailable Tawana Patel MA Unavailable Unavailable Ramses Mcpherson MD Unavailable [phone] Obdulio Barrera MD Unavailable [phone] Obdulio Barrera MD Unavailable [phone] Lesvia Stanley EP Unavailable Marilia Deluna PhD Unavailable Niyah Decker [facility] Unavailable Lesvia Stanley Unavailable Delia Avila [facility] Unavailable [phone] Mago Swift Terri [facility] Unavailable Niyah Decker [facility] Unavailable Reason for Visit Auth/Cert Specialty Diagnoses / Procedures Referred By Contact Refer red To Contact Gastroenterology Diagnoses Gastroesophageal reflux disease without esophagitis Nauseated Chronic cough Laryngitis Gastroesophageal reflux disease without esophagitis [K21.9] Nauseated [R11.0] Chronic cough [R05.3] Laryngitis [J04.0] Rh Endoscopy Procedures HC UGI ENDOSCOPY DIAG W OR W/O BRUSH/WASH ESOPHAGOGASTRODUODENOSCOPY (EGD) () [address] [place] [address] Phone: Fax: Referral ID Status Reason Start Date Expiration Date Visits Requ ested Visits Authorized [id number] 1 1 Encounter Details Date Type Department Care Team Description 07/06/2022 Hospital Encounter [facility] Tim Perez , Endoscopy Noy BIRD [address] [place], [place] GASTROINTESTINAL [address] [address] [phone] [place], [place] [phone] (Wo rk) Social History Tobacco Use Types [...] How often do you attend latter-day or pentecostal services? 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 methocarbamol (ROBAXIN) Take 1-1.5 tablets 90 tablet 1 12/202109/23/2022 500 MG (500-750 mg) by mouth tabletIndications: [...] GENITOURINARY SURGERY Tubal ligation and ablasion ??? FITNESS SALES ASSOCIATE SURGERY not sure tubal ligation and [...] dyspnea or wheezing 02/09/22 Aydee Burton APRN MARKETING SERVICES COORDINATOR albuterol (PROVENTIL) (2.5 MG/3ML) 0.083% neb solution Take 1 vial (2.5 mg) by nebulization every 6 hours as needed for shortness of breath / dyspnea or wheezing 01/19/22 Aydee Burton APRN MARKETING SERVICES COORDINATOR budesonide-formoterol (SYMBICORT) 160-4.5 MCG/ACT Inhaler Inhale 2 [...] mouth daily And a 200mg Total dose vo605rb daily 02/13/22 Aydee Burton APRN CNP lamoTRIgine [...] Visit Pulmonology Obdulio Barrera MD [address] [address] (Wo rk) 10/25/2022 PRE VISIT ENT Charo Burton MD Previsit [address] [place] [address] (Wo rk) 10/25/2022 Office Visit ENT Charo Burton MD [address] [place] [address] (Wo rk) 10/25/2022 Office Visit ENT Provider, Ent Dysphonia Python Consultant 10/25/2022 Virtual Visit Pain & [place]iative [place] [address] [place], [place] [address] 10/28/2022 Appointment Speech Therapy Anabel Chew, TEACHING PASTOR [address] [phone] (Wo rk) 11/17/2022 Appointment Speech Therapy Anabel Chew, TEACHING PASTOR [address] [address]32[address] (Wo rk) 12/01/2022 Office Visit Pain & [place] [address] [place], [place] [address] (Wo rk) 12/23/2022 Office Visit Neurology Colby Yeung MD [address] [place] [address] (Wo rk) documented as of this encounter Procedures [...] Code Phon e Number [facility] [place] [address] Diag. Lab 500 [facility], Room D297 UPPER GI ENDOSCOPY (07/06/2022 12:31 PM CDT) Component Value Ref Test Analysis Performed At [facility] gist Range Method Time Signature Upper GI [facility] RADIOLOGY Endoscopy RESULTS Patient Name: Marta Hill ? Procedure Date: 07/06 12:31 PM ? Account Num ericka: [id number] Date of : 1980 ?Admit Type: Out patient Age: 42 ? Gender: Female Attending MD: TIM FRANCISCO MD ?? Total Sedation Time: 4_minutes continuous bedside 1:1 Instrument Name: 207- Gastroscope ? Procedure: ?Upper GI endoscopy Indications: ?Chronic cough Providers: ?TIM PEREZ MD ([facility]) Referring MD: ? Medicines: ?Midazolam 2 mg [...] # [id number], Endora # ?207, SN # [id number] was introduced through the mouth, ?and advanced [...] Procedure Code(s): ? --- Professional --- ? 35017, Esophagogastroduodenoscopy, flexible, transora l; diagnostic, ? including collection of specimen(s) by brushing or wa shing, when ? performed (separate procedure) CPT copyright 2020 [employer]. All rights reserved. The codes documented in this report are prelimin julian and upon e commerce retailer review may be revised to meet current compliance requirements. Electronically signed by Tim Perez MD TIM PEREZ MD 07/06/2022 12:56:43 PM I was physically present for the entire viewing portion of t he exam. TIM PEREZ MD Number of Addenda: 0 Note Initiated On: 07/06/2022 12:31 PM MRN: ?[id number] Procedure Date: ? 07/06/2022 12:31:55 PM Total [...] mL (1 spray), Mouth/Throat, ONCE PRN, moderate pain (4-6), Starting on Mon07/06/22 at 1212, For 1 dose, [place] throat with 1 spray 5 minutes prior [...] mcg, Intravenous, EVERY 5 MIN PRN, severe pain (7-10), If inadequate response may repeat every 3 [...] on Mon07/06/22 at 1212, For 1 dose, [place] throat with 1 spray 5 minutes prior [...] after each naloxone dose. Consider transfer to [facility] if patient respiratory parameters hav e not [...] documented as of this encounter Care Teams Steamboat Inspector Relationship Specialty Start Date End Date Aydee Burton, PCP - General Nurse Practitioner - 05/17/21 BEE WORKER MARKETING SERVICES COORDINATOR Family [address] [place] [address] Aydee Burton, Assigned PCP 04/28/21 BEE WORKER MARKETING SERVICES COORDINATOR [address] [place] [address] Louisa Hood, Assigned Neuroscience 07/11/21 BEE WORKER MARKETING SERVICES COORDINATOR Provider [address] [place] [address] [place], Assigned Sleep 08/01/21 Angel Turcios, Provider [address] [place] [address] Lesly Celaya MD Assigned Surgical 09/05/21 [address] Provider [place], [place] [phone] Tawana Patel MA [facility] 09/30/21 Worker Ramses Mcpherson Assigned OBGYN 11/07/21 MD Onesimo Provider [address] [place] [address] Obdulio Barrera MD Critical Care 01/24/22 420 [facility] [address] [place] [address] Obdulio Barrera, Assigned Pulmonology 02/06/22 MD Provider [address] [facility] [address] [place] [address] Lesvia Stanley, GHADA Cardiac Rehabilitation 03/03/22 03/03/23 [facility] Therapist [address] [place] [address] Marilia Deluna, PhD Assigned Behavioral 02/20/22 [address] [facility] [place] [place] [address] Niyah Decker, [facility] Pharmacist Pharmacist 03/07/22 420 [facility] [address] [place], [place] [address] Lesvia Stanley, GHADA Cardiac Rehabilitation 03/17/22 03/17/23 [facility] Therapist [address] [place] [address] Delia Avila, Pharmacist Pharmacist 06/07/22 [facility] [address] [place] [phone] Mago Swift, [facility] Lead Internal Communications Specialist Personal Care Home Administrator - 08/05/21 Clinical Niyah Decker, [facility] Assigned MTM 06/25/22 07/29/22 420 [facility] [address] [place] [address] documented as of this encounter
--- OUTSIDE RECORDS SUMMARY | 2022-10-21 08:50 | XMS_ITS | Encounter Summary ---
:1980 Author Organization [facility] Address [address] [place] [address] Care Team Providers Name Role Phone Aydee Burton SAMPLE MAKER ORIGINAL DOCUMENTATION BILLING CLERK Primary Care Provider Aydee Burton SAMPLE MAKER ORIGINAL DOCUMENTATION BILLING CLERK Unavailable [phone] Louisa Hood SAMPLE MAKER ORIGINAL DOCUMENTATION BILLING CLERK Unavailable [phone] Angel Hannah MD Unavailable Lesly Celaya MD Unavailable Tawana Patel MA Unavailable Unavailable Ramses Mcpherson MD Unavailable Obdulio Barrera MD Unavailable [phone] Obdulio Barrera MD Unavailable [phone] Lesvia Stanley EP Unavailable Marilia Deluna PhD Unavailable Niyah Decker [facility] Unavailable Lesvia Stanley Unavailable Delia Avila [facility] Unavailable [phone] Mago Swift [facility] Unavailable Niyah Decker [facility] Unavailable Encounter Details Date Type Department Care Team Description 06/30/2022 Lab M [facility] Prior Screening for hyperlipidemia [facility] [address] [facility] [place] [address] Social History Tobacco Use [...] How often do you attend mosque or christianity services? 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 Please call us at [phone] (or use NakedRoom) to address the above recommendations if needed. Thank you for choosing [facility]. It was an honor and a privilege to participate in your care. Healthy regards, TARA Spivey [employer] documented in this encounter Plan of Treatment Upcoming Encounters Date Type Specialty Care Team Description 10/21/2022 Office Visit Pulmonology Obdulio Barrera MD [address] [place] [address] [phone] (sEtefanía casanova) 10/25/2022 PRE VISIT Charo Carter MD Previsit [address] [place] [address] [phone] (Estefanía casanova) 10/25/2022 Office Visit Charo Carter MD [address] [place] [address] [phone] (Estefanía casanova) 10/25/2022 Office Visit ENT Provider, Jeannette Ent Dysphonia Butt Welder 10/25/2022 Virtual Visit Pain & Palliative [place] [address] [place], [place] [address] 10/28/2022 Appointment Speech Therapy Anabel Chew, BASS VIOL REPAIRER [address] 152575 (Wo rk) 11/17/2022 Appointment Speech Therapy Anabel Chew SLP [address] [phone] (Wo rk) 12/01/2022 Office Visit Pain & [place] [address] [place], [place] [address] (Wo rk) 12/23/2022 Office Visit Neurology Colby Yeung MD [address] [place] [address] (Wo rk) documented as of this encounter Procedures Procedure Name Priority Date/Time Associated Diagnosis Comme nts LIPID REFLEX TO Routine 06/30/2022 10:52 Screening for Results for this DIRECT LDL PANEL AM CDT hyperlipidemia procedure are in the results section. documented in this encounter Results (ABNORMAL) Lipid panel reflex to direct LDL Fasting (06/30/2022 10:52 AM CDT) [facility] gist Method Time Signature Cholesterol 193 <200 [...] to 22 0 mg/dL Aydee Burton APRN DOCUMENTATION BILLING CLERK LAB - BLOOD ORDERABLES Performing Organization Address City/State/ZIP Code Phon e Number [facility] [place], [place] [phone] [facility] [phone] [place] [address] Lab (no room number, 1st floor of clinic) [facility] [place], [place] [phone] [facility] [phone] [address] Lab (no room number, 1st floor of clinic) documented in this encounter Visit Diagnoses Diagnosis Screening for hyperlipidemia Screening for lipoid disorders documented in this encounter Additional Health Concerns Assessment Noted Time PHQ-9 Depression Total Score: 16 06/24/2022 9:31 AM CD T documented as of this encounter Care Teams Marine Underwriter Relationship Specialty Start Date End Date Aydee Burton, PCP - General Nurse Practitioner - 05/17/21 SAMPLE MAKER ORIGINAL DOCUMENTATION BILLING CLERK Family [address] [place] [address] Aydee Burton, Assigned PCP 04/28/21 SAMPLE MAKER ORIGINAL DOCUMENTATION BILLING CLERK [address] [place], [place] [address] Louisa Hood, Assigned Neuroscience 07/11/21 SAMPLE MAKER ORIGINAL DOCUMENTATION BILLING CLERK Provider [address] [place], [place] [address] [place], Assigned Sleep 08/01/21 Angel Turcios, Provider [address] [place], [place] [address] Lesly Celaya MD Assigned Surgical 09/05/21 [address] [facility] Provider [place], [place] [address] Tawana Patel [facility] 09/30/21 Worker Ramses Mcpherson Assigned OBGYN 11/07/21 MD Onesimo Provider [address] [place], [place] [address] Obdulio Barrera MD Critical Care 01/24/[address] [place] [address] [phone] Obdulio Barrera, Assigned Pulmonology 02/06/[address] [place] [address] [phone] Lesvia Stanley EP Cardiac Rehabilitation 03/03/22 03/03/23 [facility] Therapist [address] [address] Marilia Deluna, PhD Assigned Behavioral 02/20/22 [address] [facility] Provider [place], [place] [phone] Niyah Decker, [facility] Pharmacist Pharmacist 03/07/22 420 [facility] 812 [place] [address] Lesvia Stanley EP Cardiac Rehabilitation 03/17/22 03/17/23 [facility] Therapist [address] [place] [id number] Delia Avila, Pharmacist Pharmacist 06/07/22 [facility] 9[address] [place] [address] Mago Swift, [facility] Lead Tube Bender Hand Sales Planning Coordinator - 08/05/21 Clinical Niyah Decker, [facility] Assigned MTM 06/25/22 07/29/22 420 [facility] 812 [place] [address] documented as of this encounter
--- OUTSIDE RECORDS SUMMARY | 2022-10-21 08:50 | XMS_ITS | Encounter Summary ---
:1980 Author Organization [facility] Address [address] [place] [address] Care Team Providers Name Role Phone Aydee Burton FUEL CELL REPAIRER LASTING MACHINE OPERATOR Primary Care Provider Aydee Burton FUEL CELL REPAIRER LASTING MACHINE OPERATOR Unavailable [phone] Louisa Hood FUEL CELL REPAIRER LASTING MACHINE OPERATOR Unavailable [phone] Angel Hannah MD Unavailable Lesly Celaya MD Unavailable Tawana Patel MA Unavailable Unavailable Ramses Mcpherson MD Unavailable [phone] Obdulio Barrera MD Unavailable [phone] Obdulio Barrera MD Unavailable [phone] Lesvia Stanley EP Unavailable Marilia Deluna PhD Unavailable Niyah Decker [facility] Unavailable Lesvia Stanley Unavailable Delia Avila [facility] Unavailable [phone] Mago Swift [facility] Unavailable Niyah Decker [facility] Unavailable Reason for Visit Auth/Cert Specialty Diagnoses / Procedures Referred By Contact Refer red To Contact Gastroenterology Diagnoses Gastroesophageal reflux disease without esophagitis Nauseated Chronic cough Laryngitis Gastroesophageal reflux disease without esophagitis [K21.9] Nauseated [R11.0] Chronic cough [R05.3] Laryngitis [J04.0] Rh Endoscopy Procedures HC UGI ENDOSCOPY DIAG W OR W/O BRUSH/WASH ESOPHAGOGASTRODUODENOSCOPY (EGD) (Fv) [address] [place] [address] Phone: Fax: Referral ID Status Reason Start Date Expiration Date Visits Requ ested Visits Authorized [id number] 1 1 Encounter Details Date Type Department Care Team Description 07/06/2022 Surgery [facility], ESOPHAGOGA STRODUODENOSCOPY (EGD) Endoscopy Tim Golden MD (Fv) with brushing using cytology [place] [employer] brush [address] [place] [address] [place], [place] [address] Surgery Details Date/Time Status Location OR Service [...] How often do you attend zoroastrian or mormon services? 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 STALLION MANAGER SURGERY not sure tubal ligation and [...] mouth daily And a 200mg Total dose [id number] daily 02/13/22 Aydee Burton APRN CNP lamoTRIgine [...] Barrera MD 420 [facility] [address] [place], [place] [address] (Wo rk) 10/25/2022 PRE VISIT ENT Charo Burton MD Previsit [address] [place] [phone] (Wo rk) 10/25/2022 Office Visit Charo Carter MD [address] [place] [address] [phone] (Wo rk) 10/25/2022 Office Visit ENT Provider, Jeannette Ent Dysphonia Billing Supervisor 10/25/2022 Virtual Visit Pain & Palliative [place] [address] [place], [place] [address] 10/28/2022 Appointment Speech Therapy Anabel Chew, GLAZIER METAL FURNITURE [address] [place], [place] [address] (Wo rk) 11/17/2022 Appointment Speech Therapy Anabel Chew, GLAZIER METAL FURNITURE [facility] [address] [facility] [address] [place], [place] [address] (Wo rk) 12/01/2022 Office Visit Pain & [place] [address] [place], [place] [address] (Wo rk) 12/23/2022 Office Visit Neurology Colby Yeung MD [address] [address] (Wo rk) documented as of this [...] Code Phon e Number [facility] [place] [address] Diag. Lab 500 [facility], Room D297 UPPER GI ENDOSCOPY (07/06/2022 12:31 PM CDT) Component Value Ref Test Analysis Performed At [facility] Range Method Time Signature Upper GI [facility] RADIOLOGY Endoscopy RESULTS Patient Name: Marta Hill ? Procedure Date: 07/06 12:31 PM ? Account Num ericka: [id number] Date of : 1980 ?Admit Type: Out patient Age: 42 ? Gender: Female Attending MD: TIM FRANCISCO MD ?? Total Sedation Time: 4_minutes continuous bedside 1:1 Instrument Name: 207- Gastroscope ? Procedure: ?Upper GI endoscopy Indications: ?Chronic cough Providers: ?TIM PEREZ MD (Doc tor) Referring MD: ? Medicines: ?Midazolam 2 mg [...] # [id number], Endora # ?207, SN # [id number] was introduced through the mouth, ?and advanced [...] Procedure Code(s): ? --- Professional --- ? 06914, Esophagogastroduodenoscopy, flexible, transora l; diagnostic, ? including collection of specimen(s) by brushing or wa shing, when ? performed (separate procedure) CPT copyright 2020 [employer]. All rights reserved. The codes documented in this report are prelimin julian and upon supervisor frame sample and pattern review may be revised to meet current compliance requirements. Electronically signed by Tim Perez MD TIM PEREZ MD 07/06/2022 12:56:43 PM I was physically present for the entire viewing portion of t he exam. TIM PEREZ MD Number of Addenda: 0 Note Initiated On: 07/06/2022 12:31 PM MRN: ?[id number] Procedure Date: ? 07/06/2022 12:31:55 PM Total [...] of obs truction documented in this encounter Administered Medications Inactive [...] on Mon07/06/22 at 1212, For 1 dose, [place] throat with 1 spray 5 minutes prior [...] pain, with VAD insertion, S tarting on 07/06/22 at 1226, Apply at least 30 minutes [...] mild pain with VAD insertion, Starting on 07/06/22 at 1226, MAX dose 1 mL subcutane ous OR intradermal along the side of the vein in divided doses as needed for VAD insertion. Do NOT give if patient has a history of allergy to any local anesthet ic or any caimla product. Do NOT use both lidocaine intradermal/subcutaneous [...] 3 mL 1230 (Canceled Entry - Provider: Alba Generic Provider - [...] on Mon07/06/22 at 1212, For 1 dose, [place] throat with 1 spray 5 minutes prior [...] mcg 1244 (Given - Provider: Tatiana Malhotra, AMINAH) 50-100 mcg, Intravenous, EVERY 5 MIN PRN [...] after each naloxone dose. Consider transfer to [facility] if patient respiratory parameters hav [...] as of this encounter Care Teams Machine Builder Relationship Specialty Start Date End Date Aydee Burton, PCP - General Nurse Practitioner - 05/17/21 FUEL CELL REPAIRER LASTING MACHINE OPERATOR Family [address] [place] [address]79122 Aydee Burton, Assigned PCP 04/28/21 FUEL CELL REPAIRER LASTING MACHINE OPERATOR [address] [place], [place] [address] Louisa Hood, Assigned Neuroscience 07/11/21 FUEL CELL REPAIRER LASTING MACHINE OPERATOR Provider [address] [place], [place] [phone] [place], Assigned Sleep 08/01/21 Angel Turcios, Provider [address] [facility] [address] [place], [place] [phone] Lesly Celaya MD Assigned Surgical 09/05/21 [address] [facility] Provider [place], [place] [address] Tawana Patel MA [facility] 09/30/21 Worker Ramses Mcpherson Assigned OBGYN 11/07/21 MD Onesimo Provider [address] [place], [place] [phone] Obdulio Barrera MD Critical Care 01/24/[address] [place] [address] [address] [place] [address] Obdulio Barrera, Assigned Pulmonology 02/06/22 MD Provider [address] [place] [address] Lesvia Stanley, GHADA Cardiac Rehabilitation 03/03/22 03/03/23 [facility] Therapist [address] [place] [address] Marilia Deluna, PhD Assigned Behavioral 02/20/22 [address] [facility] Provider [place], [place] [phone] Niyah Decker, [facility] Pharmacist Pharmacist 03/07/[address] [place] [address] [address] [place], [place] [address] Lesvia Stanley, GHADA Cardiac Rehabilitation 03/17/22 03/17/23 [facility] Therapist [address] [address] Delia Avila, Pharmacist Pharmacist 06/07/22 [facility] [address] [place] [phone] Mago Swift, [facility] Lead Sap Business Intelligence Consultant Pattern Keeper - 08/05/21 Clinical Niyah Decker, [facility] Assigned [place] 06/25/22 07/29/[address] [place] [address] [address] [place] [address] documented as of this encounter
--- OUTSIDE RECORDS SUMMARY | 2022-10-21 08:50 | XMS_ITS | Encounter Summary ---
:1980 Author Organization [facility] Address [address] [place] [address] Care Team Providers Name Role Phone Aydee Burton ASSURANCE SENIOR PAINTER ORDNANCE Primary Care Provider [phone] Aydee Burton ASSURANCE SENIOR PAINTER ORDNANCE Unavailable [phone] Louisa Hood ASSURANCE SENIOR PAINTER ORDNANCE Unavailable [phone] Angel Hannah MD Unavailable Lesly Celaya MD Unavailable Taawna Patel MA Unavailable Unavailable Ramses Mcpherson MD Unavailable [phone] Obdulio Barrera MD Unavailable [phone] Obdulio Barrera MD Unavailable [phone] Lesvia Stanley Unavailable Marilia Deluna PhD Unavailable Niyah Decker [facility] Unavailable Lesvia Stanley Unavailable Niyah Warner RN Unavailable Delia Avilazabeth [facility] Unavailable [phone] Delia Avila [facility] Unavailable [phone] JamisonMago Terri [facility] Unavailable Encounter Details Date [...] How often do you attend pentecostal or bahai services? 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 documented as of this encounter Plan of Treatment Upcoming Encounters Date Type Specialty Care Team Description 10/21/2022 Office Visit Pulmonology Obdulio Barrera MD 420 [facility] 276 [place], [place] [address] (Wo rk) 10/25/2022 PRE VISIT ENT Charo Burton MD Previsit [address] [place], [place] [phone] (Wo rk) 10/25/2022 Office Visit ENT Charo Burton MD [address] [place], [place] [phone] (Wo rk) 10/25/2022 Office Visit ENT Provider, Ent Dysphonia Juvenile Detention Officer 10/25/2022 Virtual Visit Pain & Palliative [place] [address] [place], [place] [address] 10/28/2022 Appointment Speech Therapy Anabel Chew, PRODUCTION MAINTENANCE MECHANIC [address] [place], [place] [address] (Wo rk) 11/17/2022 Appointment Speech Therapy Anabel Chew, PRODUCTION MAINTENANCE MECHANIC [address] [place], [place] [address] (Wo rk) 12/01/2022 Office Visit Pain & [place] [address] [place], [place] [address] (Wo rk) 12/23/2022 Office Visit Neurology Colby Yeung MD [address] [place] [phone] (Wo rk) documented as of this encounter Visit Diagnoses Not on filedocumented in this encounter Additional Health Concerns Assessment Noted Time PHQ-9 Depression Total Score: 19 06/14/2022 3:18 PM CD T documented as of this encounter Care Teams Peer Health Promoter Relationship Specialty Start Date End Date Aydee Burton, PCP - General Nurse Practitioner - 05/17/21 ASSURANCE SENIOR PAINTER ORDNANCE Family [address] [place], [place] [phone] Aydee Burton, Assigned PCP 04/28/21 ASSURANCE SENIOR PAINTER ORDNANCE [address] [place], [place] [phone] Louisa Hood, Assigned Neuroscience 07/11/21 ASSURANCE SENIOR PAINTER ORDNANCE Provider 500 [place] [address] [place], Assigned Sleep 08/01/21 Angel Turcios, Provider [address] [facility] [address] [place], [place] [phone] Lesly Celaya MD Assigned Surgical 09/05/21 [address] [place] [address] Tawana Patel [facility] 09/30/21 Worker Ramses Mcpherson Assigned OBGYN 11/07/21 MD Onesimo Provider [address] [place], [place] [phone] Obdulio Barrera MD Critical Care 01/24/[address] [address] bOdulio Barrera, Assigned Pulmonology 02/06/[address] [address] Lesvia Stanley EP Cardiac Rehabilitation 03/03/22 03/03/23 [facility] Therapist [address] [place] [address] Marilia Deluna, PhD Assigned Behavioral 02/20/22 [address] [facility] [place] [place] [address] Niyah Decker, [facility] Pharmacist Pharmacist 03/07/[address] [place] [address] 812 [place], [place] [address] Lesvia Stanley, GHADA Cardiac Rehabilitation 03/17/22 03/17/23 [facility] Therapist [address] [place] [address] Niyah Warner, Lead Cane Loader Primary Care - CC 06/27/22 RN Delia Avila, Pharmacist Pharmacist 06/07/[address] [phone] Delia Avila, Assigned [place] 06/11/2206/24 [facility] Pharmacist [address] [place] [phone] Mago Swift, [facility] Lead Cane Loader Sales Promotion Coordinator - 08/05/21 Clinical documented as of this encounter
--- OUTSIDE RECORDS SUMMARY | 2022-10-21 08:50 | XMS_ITS | Encounter Summary ---
:1980 Author Organization [facility] Address [address] [place] [address] Care Team Providers Name Role Phone Aydee Burton ACTIVITY COORDINATOR CONSERVATION POLICY ANALYST Primary Care Provider [phone] Aydee Burton ACTIVITY COORDINATOR CONSERVATION POLICY ANALYST Unavailable [phone] Louisa Hood ACTIVITY COORDINATOR CONSERVATION POLICY ANALYST Unavailable [phone] Angel Hannah MD Unavailable Lesly Celaya MD Unavailable Tawana Patel MA Unavailable Unavailable Ramses Mcpherson MD Unavailable [phone] Obdulio Barrera MD Unavailable [phone] Obdulio Barrera MD Unavailable [phone] Lesvia Stanley Unavailable Marilia Deluna PhD Unavailable Niyah Decker [facility] Unavailable Lesvia Stanley Unavailable Niyah Warner RN Unavailable Delia Avilazabeth [facility] Unavailable [phone] Delia Avila [facility] Unavailable [phone] JamisonMago Terri [facility] Unavailable Encounter Details Date Type [...] How often do you attend druze or shinto services? 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 documented as of this encounter Plan of Treatment Upcoming Encounters Date Type Specialty Care Team Description 10/21/2022 Office Visit Pulmonology Obdulio Barrera MD 420 [facility] 276 [place], [place] [address] (Wo rk) 10/25/2022 PRE VISIT ENT Charo Burton MD Previsit [address] [place], [place] [phone] (Wo rk) 10/25/2022 Office Visit ENT Charo Burton MD [address] [place], [place] [phone] (Wo rk) 10/25/2022 Office Visit ENT Provider, Ent Dysphonia Customer Response Representative 10/25/2022 Virtual Visit Pain & Palliative Care Marilia Deluna, PhD [address] [place], [place] [address] 10/28/2022 Appointment Speech Therapy Anabel Chew, MEDICINE TECH [address] [place], [place] [address] (Wo rk) 11/17/2022 Appointment Speech Therapy Anabel Chew, MEDICINE TECH [address] [place], [place] [address] (Wo rk) 12/01/2022 Office Visit Pain & [place] [address] [place], [place] [address] (Wo rk) 12/23/2022 Office Visit Neurology Colby Yeung MD [address] [place] [phone] (Wo rk) documented as of this encounter Visit Diagnoses Not on filedocumented in this encounter Additional Health Concerns Assessment Noted Time PHQ-9 Depression Total Score: 16 06/24/2022 9:31 AM CD T documented as of this encounter Care Teams Shirring Tender Relationship Specialty Start Date End Date Aydee Burton, PCP - General Nurse Practitioner - 05/17/21 ACTIVITY COORDINATOR CONSERVATION POLICY ANALYST Family [address] [place], [place] [address] Aydee Burton, Assigned PCP 04/28/21 ACTIVITY COORDINATOR CONSERVATION POLICY ANALYST [address] [place] [phone] Louisa Hood, Assigned Neuroscience 07/11/21 ACTIVITY COORDINATOR CONSERVATION POLICY ANALYST Provider [address] [place], [place] [phone] [place], Assigned Sleep 08/01/21 Angel Turcios, Provider [address] [place], [place] [phone] Lesly Celaya MD Assigned Surgical 09/05/21 [address] [place] [address] Tawana Patel [facility] 09/30/21 Worker Ramses Mcpherson Assigned OBGYN 11/07/21 MD Onesimo Provider [address] [place], [place] [phone] Obdulio Barrera MD Critical Care 01/24/[address] [address] Obdulio Barrera, Assigned Pulmonology 02/06/[address] [address] Lesvia Stanley EP Cardiac Rehabilitation 03/03/22 03/03/23 [facility] Therapist [address] [place] [address] Marilia Deluna, PhD Assigned Behavioral 02/20/22 [address] [facility] [place] [place] [address] Niyah Decker, [facility] Pharmacist Pharmacist 03/07/[address] [place] [address] 812 [place], [place] [address] Lesvia Stanley, GHADA Cardiac Rehabilitation 03/17/22 03/17/23 [facility] Therapist [address] [place] [address] Niyah Warner, Lead Admissions Director Primary Care - CC 06/27/22 RN Delia Avila, Pharmacist Pharmacist 06/07/[address] [phone] Delia Avila, Assigned [place] 06/11/2206/24 [facility] Pharmacist [address] [place] [phone] Mago Swift, [facility] Lead Admissions Director Molding Room Supervisor - 08/05/21 Clinical documented as of this encounter
--- OUTSIDE RECORDS SUMMARY | 2022-10-21 08:50 | XMS_ITS | Encounter Summary ---
:1980 Author Organization [place] Address [address] [place] [address] Care Team Providers Name Role Phone Aydee Burton SHUTTLE VENEERING SUPERVISOR OFFICE SPEC Primary Care Provider [phone] Aydee Burton SHUTTLE VENEERING SUPERVISOR OFFICE SPEC Unavailable [phone] Louisa Hood SHUTTLE VENEERING SUPERVISOR OFFICE SPEC Unavailable [phone] Angel Hannah MD Unavailable Lesly Celaya MD Unavailable Tawana Patel MA Unavailable Unavailable Ramses Mcpherson MD Unavailable [phone] Obdulio Barrera MD Unavailable [phone] Obdulio Barrera MD Unavailable [phone] Lesvia Stanley Unavailable Marilia Deluna PhD Unavailable Niyah Decker [facility] Unavailable Lesvia Stanley Unavailable Niyah Warner RN Unavailable Delia Avila [facility] Unavailable [phone] Delia Avila [facility] Unavailable [phone] JamisonMago Terri [facility] Unavailable Reason for Referral Consultation (Routine: [...] steatosis Aydee Burton [facility] ELADIO KOO [address] [place] [address] [address] [place] [address] [place] [address] Fax: Referral ID Status Reason Start Date Expiration Date Visits V isits Requested Authorized [id number] Referral NOT 06/24/2022 06/24/2023 1 1 Required Reason for Visit Reason Comments Physical Encounter Details Date Type Department Care Team Description 06/24/2022 Office Visit [facility] Aydee Burton Routine ge neral medical examination at a health care facility (Primary Dx); [facility] Point[facility]iall Mendez APRN Chronic cough; [facility] OFFICE SPEC Epigastric pain; [address] [facility] Class 1 obesity with serious comorbidity and body mass index (BMI) of 33.0 to 33.9 in adult, unspecified obesity type; [facility] Gastroesophageal reflux disease without esophagitis; [address] [place], [place] SOB (shortness of breath); [phone] [address] Hepatic steatosis; [phone] Screening for h yperlipidemia (Work) Social History [...] How often do you attend bahai or pentecostalism services? 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 Haylee Monroy with all [facility] services. Occipital appt neurology June 30. Next appt with Dr. Morales zaldivar 07/13/22 Omeprazole Question Answer Service: Upper Endoscopy Upper Endoscopy Type: EGD Sedation Screening: No Medical Concerns Affecting Sedation Reason for Upper Endoscopy: chronic cough(ENT and Pulmonology workup already done), GERD symptoms Preferred Location: [facility] Scheduling Instructions: [facility] will call you to coordinate your care as prescribed by the provider. ??If you don???t hear from a industrial sales representative within 2 business days, please [...] the importance of driving while alert, to tree puller if drowsy, or nap before getting [...] work is in process Labs reviewed in [facility] BP Readings from Last 3 Encounters: [...] GENITOURINARY SURGERY Tubal ligation and ablasion ??? QUALITY SYSTEM MANAGER SURGERY not sure tubal ligation and [...] normal/bright Diagnostic Test Results: Labs reviewed in [facility] ASSESSMENT/PLAN: Marta was seen today for physical. Diagnoses and all orders for this visit: Routine general medical examination at a [facility] facility Well woman exam with breast exam [...] ICSI Preventive Guidelines Dietary Guidelines for Americans, 2009 USDA's MyPlate ASA Prophylaxis Lung CA Screening Aydee Burton APRN CNP [facility] [place] Answers for HPI/ROS submitted by the patient [...] Office Visit Pulmonology Obdulio Barrera MD [address] [phone] (Wo rk) 10/25/2022 PRE VISIT ENT Charo Burton MD Previsit [address] [place] [address] [phone] (Wo rk) 10/25/2022 Office Visit Charo Carter MD [address] [place] [address] [phone] (Wo rk) 10/25/2022 Office Visit ENT Provider, Ent Dysphonia Truck Driver'S Offsider 10/25/2022 Virtual Visit Pain & Palliative [place] [address] [place], [place] [address] 10/28/2022 Appointment Speech Therapy Anabel Chew SLP [address] [address] (Wo rk) 11/17/2022 Appointment Speech Therapy Anabel Chew SLP [address] [place] [phone] (Wo rk) 12/01/2022 Office Visit Pain [place] [address] [facility] [place], [place] [address] (Wo rk) 12/23/2022 Office Visit Neurology Colby Yeung MD [address] [place] [address] (Wo rk) Scheduled Referrals Name Type Priority [...] direct LDL Fasting (06/30/2022 10:52 AM CDT) [facility] gist Method Time Signature Cholesterol 193 [...] equal to 22 0 mg/dL Aydee Burton SHUTTLE VENEERING SUPERVISOR OFFICE SPEC LAB - BLOOD ORDERABLES Performing Organization Address City/State/ZIP Code Phon e Number [facility] [place], [place] [phone] [facility] [phone] [place] [address] Lab (no room number, 1st floor of clinic) [facility] [place], [place] [phone] [place] [id number] [address] Lab (no room number, 1st floor [...] documented as of this encounter Care Teams Make Ready Mechanic Relationship Specialty Start Date End Date Aydee Burton, PCP - General Nurse Practitioner - 05/17/21 SHUTTLE VENEERING SUPERVISOR OFFICE SPEC Family [address] [place] [address] [phone] Aydee Burton, Assigned PCP 04/28/21 SHUTTLE VENEERING SUPERVISOR OFFICE SPEC [address] [place], [place] [phone] Louisa Hood, Assigned Neuroscience 07/11/21 SHUTTLE VENEERING SUPERVISOR OFFICE SPEC Provider 500 [place], [place] [phone] [place], Assigned Sleep 08/01/21 Angel Turcios, Provider [address] [place], [place] [address] Lesly Celaya MD Assigned Surgical 09/05/21 [address] [facility] Provider [place], [place] [phone] Tawana Patel [facility] 09/30/21 Worker Ramses Mcpherson Assigned OBGYN 11/07/21 MD Onesimo Provider [address] [place], [place] [phone] Obdulio Barrera MD Critical Care 01/24/[address] [place] [address] 286215 Obdulio Barrera, Assigned Pulmonology 02/06/[address] 947[address] Lesvia Stanley EP Cardiac Rehabilitation 03/03/22 03/03/23 [facility] Therapist [address] [place] [address] Marilia Deluna, PhD Assigned Behavioral 02/20/22 [address] [facility] [place] [address] Niyah Decker, [facility] Pharmacist Pharmacist 03/07/[address] [place] [address] 812 [place], [place] [address] Lesvia Stanley, GHADA Cardiac Rehabilitation 03/17/22 03/17/23 [facility] Therapist [address] [place] [address] Niyah Warner, Lead Plastic Extruding Machine Operator Primary Care - CC 06/27/22 RN Delia Avila, Pharmacist Pharmacist 06/07/[address] 5057[address] Delia Avila, Assigned MTM 06/11/2206/24 [facility] Pharmacist [address] [place] [address] 330375 Mago Swift, [facility] Lead Plastic Extruding Machine Operator Material Loader - 08/05/21 Clinical documented as of this encounter
--- OUTSIDE RECORDS SUMMARY | 2022-10-21 08:51 | XMS_ITS | Encounter Summary ---
:1980 Author Organization [place] Address [address] [place] [address] Care Team Providers Name Role Phone Aydee Burton RN OTOLARYNGOLOGY FLOOR MANAGER Primary Care Provider Aydee Burton RN OTOLARYNGOLOGY FLOOR MANAGER Unavailable [phone] Louisa Hood RN OTOLARYNGOLOGY FLOOR MANAGER Unavailable Angel Hannah MD Unavailable Lesly Celaya MD Unavailable Tawana Patel MA Unavailable Unavailable Ramses Mcpherson MD Unavailable [phone] Obdulio Barrera MD Unavailable [phone] Obdulio Barrera MD Unavailable [phone] Lesvia Stanley Unavailable Marilia Deluna PhD Unavailable Niyah Decker [facility] Unavailable Clari Poole [facility] Unavailable FietekLesvia Esther EP Unavailable Niyah Warner RN Unavailable Delia Avila [facility] Unavailable [phone] Delia Avila [facility] Unavailable [phone] Mago Swift [facility] Unavailable Niyah Decker [facility] Unavailable EvertonLeela davis [facility] Unavailable Niyah Decker [facility] Unavailable Reason for Visit Reason Onset Date Comments Refill Request 06/13/2022 Encounter Details Date Type Department Care Team Description 06/13/2022 Refill [facility] Aydee Burton, Refill Request [address] [address] [place], [place] [phone] [phone] Social History Tobacco Use Types Packs/Day Years [...] How often do you attend evangelical or denominational services? 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 COVID-19 Exposure Response Date Recorded [...] has upcoming appointment 06/14/22 Ciara Mg RN [facility] Triage documented in this encounter Plan of Treatment Upcoming Encounters Date Type Specialty Care Team Description 10/21/2022 Office Visit Pulmonology Obdulio Barrera MD [address] [place] [address] [phone] (Estefanía casanova) 10/25/2022 PRE VISIT ENT Charo Burton MD Previsit [address] [place] [address] [phone] (Estefanía casanova) 10/25/2022 Office Visit Charo Carter MD [address] [place] [address] [phone] (Estefanía casanova) 10/25/2022 Office Visit ENT Provider, Jeannette Ent Dysphonia Cell Tuber Hand 10/25/2022 Virtual Visit Pain & Palliative Care [place] [address] [place], [place] [address] 10/28/2022 Appointment Speech Therapy Anabel Chew, MANAGER ACUTE [address] [phone] (Wo rk) 11/17/2022 Appointment Speech Therapy Anabel Chew MANAGER ACUTE [address] 301725 (Wo rk) 12/01/2022 Office Visit Pain & [place] [address] [place], [place] [address] (Wo rk) 12/23/2022 Office Visit Neurology Colby Yeung MD [address] [place], [place] [address] (Wo rk) documented as of this encounter Visit Diagnoses Diagnosis Bilateral occipital neuralgia Other syndromes affecting cervical regio n documented in this encounter Additional Health Concerns Assessment Noted Time PHQ-9 Depression Total Score: 19 05/27/2022 1:35 PM CD T documented as of this encounter Care Teams Cement Kiln Operator Relationship Specialty Start Date End Date Aydee Burton, PCP - General Nurse Practitioner - 05/17/21 RN OTOLARYNGOLOGY FLOOR MANAGER Family [address] [place] [address] 229322 Aydee Burton, Assigned PCP 04/28/21 RN OTOLARYNGOLOGY FLOOR MANAGER [address] [place] [address] [phone] Louisa Hood, Assigned Neuroscience 07/11/21 RN OTOLARYNGOLOGY FLOOR MANAGER Provider [address] [place] [address] [phone] [place] Assigned Sleep 08/01/21 Angel Turcios, Provider [address] [place], [place] [address] Lesly Celaya MD Assigned Surgical 09/05/21 [address] [facility] [facility] Provider [place], [place] [address] Tawana Patel MA [facility] 09/30/21 Worker Ramses Mcpherson Assigned OBGYN 11/07/21 MD Onesimo Provider [address] [place] [address] Obdulio Barrera MD Critical Care 01/24/[address] [place] [address] 276 [place], [place] 5[address] Obdulio Barrera, Assigned Pulmonology 02/06/22 MD Provider [address] [place] [address] 276 [place], [place] 249605 Lesvia Stanley EP Cardiac Rehabilitation 03/03/22 03/03/23 [facility] Therapist [address] [place], [place] [address] Marilia Deluna, PhD Assigned Behavioral 02/20/22 [address] [facility] Provider [place], [place] [address] Niyah Decker, [facility] Pharmacist Pharmacist 03/07/22 [address] [facility] [address] [place], [place] [phone] Clari Poole, Pharmacist Pharmacist 03/07/22 06/15/22 [facility] [address] [facility] [place] [address] Lesvia Stanley, EP Cardiac Rehabilitation 03/17/22 03/17/23 [facility] Therapist [address] [address] Niyah Warner, Lead Application Development Team Lead Primary Care - CC 06/27/22 RN Delia Avila, Pharmacist Pharmacist 06/07/[address] [phone] Delia Avila, Assigned MTM 06/11/2206/24 [facility] Pharmacist [address] [place] [address] Mago Swift, [facility] Lead Application Development Team Lead Oyster Unloader - 08/05/21 Clinical Niyah Deckre, [facility] Assigned MTM 06/25/22 07/29/22 [address] [facility] 8[address] Pharmacist [place], [place] [address] Leela Jarvis [facility] Pharmacist 07/26/22 05/15/23 [facility] [place] [phone] Niyah Decker, [facility] Assigned MTM 08/10/22 09/16/22 [address] [facility] [address] Pharmacist [place], [place] [phone] documented as of this encounter
--- OUTSIDE RECORDS SUMMARY | 2022-10-21 08:51 | XMS_ITS | Encounter Summary ---
:1980 Author Organization [place] Address [address] [place] [address] Care Team Providers Name Role Phone Aydee Burton ENTREPRENEUR CHILD WATCH ATTENDANT Primary Care Provider Aydee Burton ENTREPRENEUR CHILD WATCH ATTENDANT Unavailable [phone] Louisa Hood ENTREPRENEUR CHILD WATCH ATTENDANT Unavailable [phone] Angel Hannah MD Unavailable Lesly Celaya MD Unavailable Tawana Patel MA Unavailable Unavailable Ramses Mcpherson MD Unavailable [phone] Obdulio Barrera MD Unavailable [phone] Obdulio Barrera MD Unavailable [phone] Lesvia Stanley Unavailable Marilia Deluna PhD Unavailable Niyah Decker [facility] Unavailable Clari Poole [facility] Unavailable Lesvia Stanley EP Unavailable Niyah Warner RN Unavailable Oh Avilakaylee Leal [facility] Unavailable [phone] Delia Avila [facility] Unavailable [phone] [facility] Unavailable Reason for Referral Diagnostic Imaging Ultrasound (Routine) - Pending Review Specialty Diagnoses / Procedures Referred By Contact Refer red To Contact Diagnoses Enlarged thyroid Aydee Burton APRN Procedures US Thyroid CHILD WATCH ATTENDANT [address] [place] [address] Referral ID Status Reason Start Date Expiration Date Visits V isits Requested Authorized [id number] Pending 06/14/2022 06/14/2023 1 1 Review Diagnostic Procedure Outpatient (Routine: Next available opening) - Closed Specialty Diagnoses / Procedures Referred By Contact Refer red To Contact Gastroenterology Diagnoses Gastroesophageal reflux disease without esophagitis Nauseated Chronic cough Laryngitis Aydee Burton APRN CHILD WATCH ATTENDANT [address] [place] [address] Referral ID Status Reason Start Date Expiration Date Visits Requ ested Visits Authorized [id number] Closed 06/14/2022 06/14/2023 1 1 Reason for Visit Reason Comments Chest Pain Encounter Details Date Type Department Care Team Description [facility]/14[facility]2022 [facility] , unspecified type (Primary Dx); [facility] [place] SOB (shortness of breath); [address] [facility] HANANE Palpitations; [place] [address] [place] [address] Gastroesophageal reflux dise ase without esophagitis; [place], [place] SE Nauseated; [address] [place], [place] Chronic cough; [phone] [address] Laryngitis; [phone] Epigastric pain ; (Work) Enlarged thyroid Social [...] How often do you attend episcopalian or anabaptist services? Never 08/05/2021 Do you [...] at Date Recorded Female 11/09/2021 7:53 PM ACCIDENT EXAMINER COVID-19 Exposure Response Date Recorded In [...] sent through Care Everywhere. Chest Pain, Noncardiac (Nepali)GERD (Adult) (Nepali)documented in this encounter Progress Notes Aydee Burton [...] without esophagitis Continue omeprazole. - Adult GI Infant Toddler Lead Teacher Referral - Procedure Only Nauseated - Adult GI Infant Toddler Lead Teacher Referral - Procedure Only - Helicobacter pylori Antigen Stool - Helicobacter pylori Antigen Stool Chronic cough Laryngitis - Adult GI Infant Toddler Lead Teacher Referral - Procedure Only Epigastric pain - Helicobacter pylori Antigen Stool - Helicobacter pylori Antigen Stool Enlarged thyroid - US Thyroid Return in about 10 days (around 06/24/2022) for Wellness exam fasting labs. Aydee Burton APRN CNP [facility] Marta is a 42 year old presenting [...] due on 06/11/2022 Please call us at [phone] (or use [employer]) to address the above recommendations if needed. Thank you for choosing [facility]. It was an honor and a privilege to participate in your care. Healthy regards, TARA Spivey [employer] [place] documented in this encounter Plan of Treatment Upcoming Encounters Date Type Specialty Care Team Description 10/21/2022 Office Visit Pulmonology Obdulio Barrera MD [address] [place] [address] 032885 (Estefanía rk) 10/25/2022 PRE VISIT Charo Carter MD Previsit [address] [place] [address] 014805 (Estefanía rk) 10/25/2022 Office Visit Charo Carter MD [address] [place] [address] [phone] (Estefanía casanova) 10/25/2022 Office Visit ENT Provider, Jeannette Ent Dysphonia Career Development Facilitator 10/25/2022 Virtual Visit Pain & Palliative Care [place] [address] [place], [place] [address] 10/28/2022 Appointment Speech Therapy Anabel Chew, CELINE [address] 748225 (Wo rk) 11/17/2022 Appointment Speech Therapy Anabel Chew SLP [address] 673235 (Wo rk) 12/01/2022 Office Visit Pain & [place] [address] [place], [place] [address] (Wo rk) 12/23/2022 Office Visit Neurology Colby Yeung MD [address] [place] [address] (Wo rk) Scheduled Referrals Name Type Priority Associated Diagnoses Order S chedule Adult GI Infant Toddler Lead Teacher Referral Routine: Next Gastroesophageal refl ux Expected: [...] Reyes. et al. Journal of t he [employer] 2017. Volume 14 (2017), Issue 5, 443-150. Narrative 06/16/2022 9:41 PM CDT EXAM: US THYROID LOCATION: [facility] DATE/TIME: 06/16/2022 5:03 PM INDICATION: Thyroid gland [...] from the original. EXAM: US THYROID LOCATION: [facility] DATE/TIME: 06/16/2022 5:03 PM INDICATION: Thyroid gland [...] Reyes. et al. Journal of t he [employer] 2017. Volume 14 (2017), Issue 5, 431-021. Aydee Burton APRN CHILD WATCH ATTENDANT IMG US ORDERABLES Helicobacter pylori Antigen Stool (06/16/2022 4:08 PM CDT) [employer] Method Time Signature Helicobacter Negative Negative 06/20/2022 [facility] pylori Antigen 12:24 PM CDT CORE/PROT/EN [...] / CDT PM CDT Unknown Aydee Burton APRN CHILD WATCH ATTENDANT LAB - STOOLS ORDERABLES Performing Organization Address City/State/ZIP Code Phon e Number [facility] CORE/PROT/ENDO Specialty [place], [place] [address] Core/Prot/Endo [address] [facility] [address] Building, Room 3-580 EKG 12-lead complete w/read - Clinics (06/14/2022) Narrative This result has an attachment that is no t available. Aydee Burton APRN CHILD WATCH ATTENDANT ECG ORDERABLES documented in this encounter Visit Diagnoses Diagnosis Chest pain, unspecified type - Primary SOB (shortness of breath) Shortness of breath Palpitations Gastroesophageal reflux disease without esophagitis Esophageal reflux Nauseated Nausea alone Chronic cough Cough Laryngitis Acute laryngitis, without mention of obs truction Epigastric pain Abdominal pain, epigastric Enlarged thyroid Goiter, unspecified Enlarged thyroid Goiter, unspecified documented in this encounter Additional Health Concerns Assessment Noted Time PHQ-9 Depression Total Score: 19 06/14/2022 3:18 PM CD T documented as of this encounter Care Teams Railway Traction Line Worker Relationship Specialty Start Date End Date Aydee Burton, PCP - General Nurse Practitioner - 05/17/21 ENTREPRENEUR CHILD WATCH ATTENDANT Family [address] [place], [place] [address] Aydee Burton, Assigned PCP 04/28/21 ENTREPRENEUR CHILD WATCH ATTENDANT [address] [place], [place] 811[address] Louisa Hood, Assigned Neuroscience 07/11/21 ENTREPRENEUR CHILD WATCH ATTENDANT Provider [address] [place] [address] [place], Assigned Sleep 08/01/21 Angel Turcios, Provider [address] [place] [address] Lesly Celaya MD Assigned Surgical 09/05/21 [address] [facility] Provider [place], [place] [address] Tawana Patel MA [facility] 09/30/21 Worker Ramses Mcpherson Assigned OBGYN 11/07/21 MD Onesimo Provider [address] [place] [address] Obdulio Barrera MD Critical Care 01/24/[address] [place] [address] 276 [place] [address] Obdulio Barrera, Assigned Pulmonology 02/06/22 MD Provider 420 [facility] 276 [place] [address] Lesvia Stanley EP Cardiac Rehabilitation 03/03/22 03/03/23 [facility] Therapist [address] [place], [place] [address] Marilia Deluna, PhD Assigned Behavioral 02/20/22 [address] [facility] Provider [place], [place] [address] Niyah Decker, [facility] Pharmacist Pharmacist 03/07/22 420 [facility] 812 [place] [address] Clari Poole, Pharmacist Pharmacist 03/07/22 06/15/22 [facility] [address] [facility] [address] [place] [phone] Lesvia Stanley, GHADA Cardiac Rehabilitation 03/17/22 03/17/23 [facility] Therapist [address] [address] Niyah Warner, Lead Motor Vehicles Supervisor Primary Care - CC 06/27/22 RN Delia Avila, Pharmacist Pharmacist 06/07/[address] [address] Delia Avila, Assigned MTM 06/11/2206/24 [facility] Pharmacist [address] [place] [address] [facility] Lead Motor Vehicles Supervisor Terminal Worker - 08/05/21 Clinical documented as of this encounter
--- OUTSIDE RECORDS SUMMARY | 2022-10-21 08:51 | XMS_ITS | Encounter Summary ---
:1980 Author Organization [place] Address [address] [place] [address] Care Team Providers Name Role Phone Aydee Burton COST ACCOUNTING ANALYST LOOP SEWER Primary Care Provider Aydee Burton COST ACCOUNTING ANALYST LOOP SEWER Unavailable [phone] Louisa Hood COST ACCOUNTING ANALYST LOOP SEWER Unavailable [phone] Clari Ruiz [facility] Unavailable Angel Hannah MD Unavailable Lesly Celaya MD Unavailable Tawana Patel MA Unavailable Unavailable Ramses Mcpherson MD Unavailable [phone] Obdulio Barrera MD Unavailable [phone] Obdulio Barrera MD Unavailable [phone] Lesvia Stanley Unavailable Marilia Deluna PhD Unavailable Niyah Decker [facility] Unavailable Virgilio Clari Murray [facility] Unavailable Lesvia Stanley EP Unavailable Niyah Warner RN Unavailable Niyah Decker [facility] Unavailable JamisonMago Terri [facility] Unavailable Encounter Details Date Type Department Care Team Description 06/06/[address] [facility] Marilia Deluna, NO SHOW (Primary Dx) Pain Management PhD [address] [place] [address] [address] [address] [place] [address] Social History Tobacco Use Types [...] often do you attend latter day or episcopal services? Never 08/05/2021 Do you [...] at Date Recorded Female 11/09/2021 7:53 PM LIFT MANAGER COVID-19 Exposure Response Date Recorded In [...] to connect with her. Marilia Deluna PsyD Licensed Psychologist Outpatient Clinic Therapist [facility] documented in this encounter Plan of Treatment Upcoming Encounters Date Type Specialty Care Team Description 10/21/2022 Office Visit Pulmonology Obdulio Barrera MD [address] [place] [phone] (Estefanía rk) 10/25/2022 PRE VISIT ENT Charo Burton MD Previsit [address] [place] [phone] (Wo rk) 10/25/2022 Office Visit Charo Carter MD [address] [place] [phone] (Estefanía casanova) 10/25/2022 Office Visit ENT Provider, Jeannette Ent Dysphonia Early Childhood Worker 10/25/2022 Virtual Visit Pain & Palliative Care [place] [address] [place], [place] [address] 10/28/2022 Appointment Speech Therapy Anabel Chew, NAV[employer] AIRSPACE OFFICER [address] [place], [place] [address] (Wo rk) 11/17/2022 Appointment Speech Therapy Anabel Chew, NAVY AIRSP[employer] OFFICER [address] [phone] (Wo rk) 12/01/2022 Office Visit Pain [place] [address] [place], [place] [address] (Wo rk) 12/23/2022 Office Visit Neurology Colby Yeung MD [address] [place] [phone] (Wo rk) documented as of this encounter Visit Diagnoses Diagnosis NO SHOW - Primary documented in this encounter Additional Health Concerns Assessment Noted Time PHQ-9 Depression Total Score: 05/27/2022 1:35 PM CD T documented as of this encounter Care Teams Transfer Table Operator Helper Relationship Specialty Start Date End Date Aydee Burotn, PCP - General Nurse Practitioner - 05/17/21 COST ACCOUNTING ANALYST LOOP SEWER Family [address] [place] [address] [phone] Aydee Burton, Assigned PCP 04/28/21 COST ACCOUNTING ANALYST LOOP SEWER [address] [place] [place] [address] [phone] Louisa Hood, Assigned Neuroscience 07/11/21 COST ACCOUNTING ANALYST LOOP SEWER Provider [address] [place], [place] [phone] Clari Ruiz Pharmacist Pharmacist 08/06/21 06/07/22 Jocelyn [facility] [address] [place], [place] [address] [place], Assigned Sleep 08/01/21 Angel Turcios, Provider [address] [place], [place] [address] Lesly Celaya MD Assigned Surgical 09/05/21 [address] Provider [place], [place] [address] Tawana Patel MA [facility] 09/30/21 Worker Ramses Mcpherson Assigned OBGYN 11/07/21 MD Onesimo Provider [address] [place] [address] Obdulio Barrera MD Critical Care 01/24/[address] [place] [address] 276 [place] [address] Obdulio Barrera, Assigned Pulmonology 02/06/22 MD Provider [address] [place] [address] 276 [place], [place] [address] Lesvia Stanley, GHADA Cardiac Rehabilitation 03/03/22 03/03/23 [facility] Therapist [address] [place], [place] [address] Marilia Deluna, PhD Assigned Behavioral 02/20/22 [address] [facility] Provider [place], [place] [address] Niyah Decker, [facility] Pharmacist Pharmacist 03/07/22 420 [facility] 812 [place], [place] [phone] Clari Poole, Pharmacist Pharmacist 03/07/22 06/15/22 [facility] [address] [facility] [address] [place] [phone] Lesvia Stanley, GHADA Cardiac Rehabilitation 03/17/22 03/17/23 [facility] Therapist [address] [place] [id number] Niyah Warner, Lead Glassware Finisher Primary Care - CC 06/27/22 RN Niyah Decker, [facility] Assigned MTM 05/28/22 06/10/[address] [place] [address] 812 Pharmacist [place], [place] [phone] Mago Swift, [facility] Lead Glassware Finisher Helicopter Officer - 08/05/21 Clinical documented as of this encounter
--- OUTSIDE RECORDS SUMMARY | 2022-10-21 08:51 | XMS_ITS | Encounter Summary ---
:1980 Author Organization [place] Address [address] [place] [address] Care Team Providers Name Role Phone Aydee Burton ENTERPRISE ACCOUNT EXECUTIVE TRUSS ASSEMBLER Primary Care Provider Aydee Burton ENTERPRISE ACCOUNT EXECUTIVE TRUSS ASSEMBLER Unavailable [phone] Louisa Hood ENTERPRISE ACCOUNT EXECUTIVE TRUSS ASSEMBLER Unavailable [phone] Angel Hannah MD Unavailable Lesly Celaya MD Unavailable Tawana Patel MA Unavailable Unavailable Ramses Mcpherson MD Unavailable [phone] Obdulio Barrera MD Unavailable Obdulio Barrera MD Unavailable [phone] Lesvia Stanley Unavailable Marilia Deluna PhD Unavailable Niyah Decker [facility] Unavailable Lesvia Stanley Unavailable Niyah Warner RN Unavailable Delia Avila [facility] Unavailable [phone] Delia Avila [facility] Unavailable [phone] Mago Swift [facility] Unavailable Reason for Visit Reason Comments Medication Therapy Management Encounter Details Date Type Department Care Team Description 06/16/2022 Virtual Visit [facility] Niyah Decker, Rober teral occipital neuralgia (Primary Dx); Clinic [facility] Major depressive disorder, remission sta tus unspecified, unspecified whether recurrent; 303 [facility] 420 [facility] [place] (ge neralized anxiety disorder); [facility] 812 PTSD (post-traumatic stress disorder); [address] [place], [place] Severe asthma, unspecified w hether complicated, unspecified whether persistent; [place] [address] [facility] [phone] Social History Tobacco Use Types Packs/Day [...] How often do you attend denominational or jain services? Never 08/05/2021 Do you [...] at Date Recorded Female 11/09/2021 7:53 PM TRADE SALES ASSISTANT COVID-19 Exposure Response Date Recorded In [...] may receive an email or textmessage from [facility] [employer] with a link to a survey related to your ???clinical pharmacist. To schedule another MTM appointment, please call the clinic directly or you may call the MTM scheduling line at [phone] or toll-free at . My Clinical Pharmacist's contact information: Please feel free to contact me with any questions or concerns you have. Niyah Decker , Pharm D [phone] (phone) Medication Therapy Management Pharmacist documented in [...] includes age and gender (Yulia et al., NEJM, DOI: 10.1056/RLYBtx7318760) 05/17/2021 >90 >60 mL/min/[1.73_m2] Final Comment: Non [...] patient's provider(s). The patient was sent via [employer] a summary of these recommendations. Niyah Decker , Pharm D [phone] (phone) Medication Therapy Management Pharmacist Telemedicine Visit Details Type of service: Telephone visit Start Time: 300pm End Time: 330pm Originating Location (patient location): [place] Distant Location (provider location): [facility] Medication Therapy Recommendations Bilateral occipital neuralgia Current Medication: gabapentin (NEURONTIN) 300 MG capsule Rationale: Undesirable effect - Adverse medication event - Safety Recommendation: Change Medication Status: Accepted per CPA documented in this encounter Plan of Treatment Upcoming Encounters Date Type Specialty Care Team Description 10/21/2022 Office Visit Pulmonology Obdulio Barrera MD [address] [place] [address] (Wo rk) 10/25/2022 PRE VISIT ENT Charo Burton MD Previsit [address] [place] [phone] (Wo rk) 10/25/2022 Office Visit ENT Charo Burton MD [address] [place] [address] (Wo rk) 10/25/2022 Office Visit ENT Provider, Ent Dysphonia Manager Quality 10/25/2022 Virtual Visit Pain & Palliative [place] [address] [place], [place] [address] 10/28/2022 Appointment Speech Therapy Anabel Chew, TALENT DEVELOPMENT CONSULTANT [address] [address] (Wo rk) 11/17/2022 Appointment Speech Therapy Anabel Chew, TALENT DEVELOPMENT CONSULTANT [address] [address] (Wo rk) 12/01/2022 Office Visit Pain & [place] [address] [place], [place] [address] (Wo rk) 12/23/2022 Office Visit Neurology Colby Yeung MD [address] [place] [phone] (Wo rk) documented as of this encounter Visit Diagnoses Diagnosis Bilateral occipital neuralgia - Primary Other syndromes affecting cervical regio n Major depressive disorder, remission sta tus unspecified, unspecified whether recurrent [place] (generalized anxiety disorder) Generalized anxiety disorder PTSD (post-traumatic stress disorder) Posttraumatic stress disorder Severe asthma, unspecified whether compl icated, unspecified whether persistent Nausea Nausea alone documented in this encounter Additional Health Concerns Assessment Noted Time PHQ-9 Depression Total Score: 19 06/14/2022 3:18 PM CD T documented as of this encounter Care Teams University President Relationship Specialty Start Date End Date Aydee Burton, PCP - General Nurse Practitioner - 05/17/21 ENTERPRISE ACCOUNT EXECUTIVE TRUSS ASSEMBLER Family [address] [place] [address] Aydee Burton, Assigned PCP 04/28/21 ENTERPRISE ACCOUNT EXECUTIVE TRUSS ASSEMBLER [address] [place] [address] Louisa Hood, Assigned Neuroscience 07/11/21 ENTERPRISE ACCOUNT EXECUTIVE TRUSS ASSEMBLER Provider [address] [place], [place] [phone] [place], Assigned Sleep 08/01/21 Angel Turcios, Provider [address] [place], [place] [phone] Lesly Celaya MD Assigned Surgical 09/05/21 [address] Provider [place], [place] [phone] Tawana Patel MA Pending [facility] 09/30/21 Worker Ramses Mcpherson Assigned OBGYN 11/07/21 MD Onesimo Provider [address] [place], [place] [phone] Obdulio Barrera MD Critical Care 01/24/[address] [place] [phone] Obdulio Barrera, Assigned Pulmonology 02/06/[address] [phone] Lesvia Stanley EP Cardiac Rehabilitation 03/03/22 03/03/23 [facility] Therapist [address] [address] Marilia Deluna, PhD Assigned Behavioral 02/20/22 [address] [facility] Health Provider [place], [place] [address] Niyah Decker, [facility] Pharmacist Pharmacist 03/07/[address] [place] [address] 812 [place], [place] [phone] Lesvia Stanley, GHADA Cardiac Rehabilitation 03/17/22 03/17/23 [facility] Therapist [address] [place] [place] [address] Niyah Warner, Lead Gas Desulfurizer Primary Care - CC 06/27/22 RN Delia Avila, Pharmacist Pharmacist 06/07/[address] [phone] Delai Avila, Assigned MTM 06/11/2206/24 [facility] Pharmacist [address] [place] [address] Mago Switf, [facility] Lead Gas Desulfurizer Intervention Manager - 08/05/21 Clinical documented as of this encounter
--- OUTSIDE RECORDS SUMMARY | 2022-10-21 08:51 | XMS_ITS | Encounter Summary ---
:1980 Author Organization [place] Address [address] [place] [address] Care Team Providers Name Role Phone Aydee Burton WASH TUB MACHINE OPERATOR OSTOMY RN Primary Care Provider Aydee Burton WASH TUB MACHINE OPERATOR OSTOMY RN Unavailable [phone] Louisa Hood WASH TUB MACHINE OPERATOR OSTOMY RN Unavailable [phone] Clari Ruiz [facility] Unavailable Angel Hannah MD Unavailable Lesly Celaya MD Unavailable Tawana Patel MA Unavailable Unavailable Ramses Mcpherson MD Unavailable [phone] Obdulio Barrera MD Unavailable [phone] Obdulio Barrera MD Unavailable [phone] Lesvia Stanley Unavailable Marilia Deluna PhD Unavailable Niyah Decker [facility] Unavailable WedClari bhakta [facility] Unavailable KandiLesvia moon Esther Unavailable Clari Ruiz Jocelyn [facility] Unavailable IsraNiyah carter RN Unavailable Mago Swift [facility] Unavailable Encounter Details Date Type [...] How often do you attend shinto or rastafari services? Never 08/05/2021 Do you [...] at Date Recorded Female 11/09/2021 7:53 PM PRINTING SCREEN ASSEMBLER COVID-19 Exposure Response Date Recorded In the last 10 days, have you been in contact with No / Unsu re 05/25/2022 10:05 AM CDT someone who was confirmed or suspected to have Coronavirus/COVID-19? documented as of this encounter Plan of Treatment Upcoming Encounters Date Type Specialty Care Team Description 10/21/2022 Office Visit Pulmonology Obdulio Barrera MD [address] [place] [address] [phone] (Wo rk) 10/25/2022 PRE VISIT ENT Charo Burton MD Previsit [address] [place] [address] [phone] (Wo rk) 10/25/2022 Office Visit ENT Charo Burton MD [address] [place] [address] [phone] (Wo rk) 10/25/2022 Office Visit ENT Provider, Ent Dysphonia Ticker Maintainer 10/25/2022 Virtual Visit Pain & Palliative Care [place] [address] [place], [place] [address] 10/28/2022 Appointment Speech Therapy Anabel Chew, HORSE BREEDER [address] [phone] (Wo rk) 11/17/2022 Appointment Speech Therapy Anabel hCew, HORSE BREEDER [address] [phone] (Wo rk) 12/01/2022 Office Visit Pain & [place] [address] [place], [place] [address] (Wo rk) 12/23/2022 Office Visit Neurology Colby Yeung MD [address] [phone] (Wo rk) documented as of this encounter Visit Diagnoses Not on filedocumented in this encounter Additional Health Concerns Assessment Noted Time PHQ-9 Depression Total Score: 20 05/19/2022 9:02 AM CD T documented as of this encounter Care Teams Fruit Grader Relationship Specialty Start Date End Date Aydee Burton, PCP - General Nurse Practitioner - 05/17/21 WASH TUB MACHINE OPERATOR OSTOMY RN Family [address] [place], [place] [phone] Aydee Burton, Assigned PCP 04/28/21 WASH TUB MACHINE OPERATOR OSTOMY RN [address] [place], [place] [address] Louisa Hood, Assigned Neuroscience 07/11/21 WASH TUB MACHINE OPERATOR OSTOMY RN Provider 500 [place], [place] [phone] Clari Ruiz Pharmacist Pharmacist 08/06/21 [facility]/07/22 [facility] [address] [place], [place] [address] [place], Assigned Sleep 08/01/21 Angel Turcios, Provider [address] [place], [place] [address] Lesly Celaya MD Assigned Surgical 09/05/21 [address] Provider [place], [place] [phone] Tawana Patel MA [facility] 09/30/21 Worker Ramses Mcpherson Assigned OBGYN 11/07/21 MD Onesimo Provider [address] [place] [address] Obdulio Barrera MD Critical Care 01/24/22 420 [facility] 276 [place], [place] [address] Obdulio Barrera, Assigned Pulmonology 02/06/22 MD Provider 420 [facility] 276 [place] [address] Lesvia Stanley, GHADA Cardiac Rehabilitation 03/03/22 03/03/23 [facility] Therapist [address] [place], [place] [address] Marilia Deluna, PhD Assigned Behavioral 02/20/22 [address] [facility] [place] [address] Niyah Decker, [facility] Pharmacist Pharmacist 03/07/22 420 [facility] 812 [place], [place] [phone] Clari Poole, Pharmacist Pharmacist 03/07/22 06/15/22 [facility] [address] [facility] [address] [place] [phone] Lesvia Stanley, GHADA Cardiac Rehabilitation 03/17/22 03/17/23 [facility] Therapist [address] [place], [place] [address] Clari Ruiz Assigned [place] [facility] 04/09/22 05/27/22 Jocelyn [facility] Pharmacist [address] [place], [place] [address] Niyah Warner, Lead Plasma Cutting Machine Operator Primary Care - CC 06/27/22 RN Mago Swift, [facility] Lead Plasma Cutting Machine Operator Certified Fire Investigator - 08/05/21 Clinical documented as of this encounter
--- OUTSIDE RECORDS SUMMARY | 2022-10-21 08:51 | XMS_ITS | Encounter Summary ---
:1980 Author Organization [place] Address [address] [place] [address] Care Team Providers Name Role Phone Aydee Burton BEEF SPECIALIST MECHANICAL DRAWING TEACHER Primary Care Provider Aydee Burton BEEF SPECIALIST MECHANICAL DRAWING TEACHER Unavailable [phone] Louisa Hood BEEF SPECIALIST MECHANICAL DRAWING TEACHER Unavailable [phone] Clari Ruiz [facility] Unavailable Angel Hannah MD Unavailable Lesly Celaya MD Unavailable Tawana Patel MA Unavailable Unavailable Ramses Mcpherson MD Unavailable [phone] Obdulio Barrera MD Unavailable [phone] Obdulio Barrera MD Unavailable [phone] Lesvia Stanley Unavailable Marilia Deluna PhD Unavailable Niyah Decker [facility] Unavailable Clari Poole [facility] Unavailable Jaden Lesvia Esther EP Unavailable Niyah Warner RN Unavailable Delia Avila [facility] Unavailable [phone] Niyah Decker [facility] Unavailable JamisonMago Terri [facility] Unavailable Reason for Visit Reason Comments Medication Therapy Management Med Therapy Management (Urgent: 3-5 Days) - Closed Specialty Diagnoses / Procedures Referred By Contact Refer red To Contact Pharmacist Diagnoses Fatigue, unspecified type Aydee Burton APRN MECHANICAL DRAWING TEACHER [address] [place] [address] Referral ID Status Reason Start Date Expiration Date Visits Requ ested Visits Authorized [id number] Closed 05/27/2022 05/27/2023 1 1 Encounter Details Date Type Department Care Team Description 06/07/2022 Virtual Visit [facility] Aydee Burton Ch, APRN MECHANICAL DRAWING TEACHER [address] [place] [address] Major depressive disorder, remission sta tus unspecified, unspecified whether recurrent (Primary Dx); Clinic Delia Morris, [facility] [address] [place], [place] [phone] [place] (generalized anxiety disorder); [address] [place] [address] PTSD (pos t-traumatic stress disorder); DRIVE Pain; [place], [place] Severe asth ma, unspecified whether complicated, unspecified [...] How often do you attend scientology or yazidism services? 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 documented as of this encounter Patient Instructions Patient InstructionsMandt, Delia Leal, [facility] - 06/07/2022 1:30 PM CDT Recommendations from [...] may receive an email or textmessage from [facility] [employer] with a link to a survey related to your ???clinical pharmacist. To schedule another MTM appointment, please call the clinic directly or you may call the MTM scheduling line at [phone] or toll-free at . My Clinical Pharmacist's contact information: Please feel free to contact me with any questions or concerns you have. Delia Avila, PharmD, BCACP Medication Therapy Management Provider [email or web address] documented in this encounter Progress Notes Delia [...] increase when she is already taking several IT SERVICE CONTINUITY SUPERVISOR active medications. Facial Neuralgia/Elbow Pain/Hand Stiffness/Neck and [...] and gender (Yulia et al., NEJM, DOI: 10.1056/[id number]) 05/17/2021 >90 >60 mL/min/[1.73_m2] Final Comment: Non [...] patient's provider(s). The patient was sent via [employer] a summary of these recommendations. Delia Avila, PharmD, BCACP Medication Therapy Management Provider [email or web address] Telemedicine Visit Details Type of service: Telephone visit Start Time: 1:30 PM End Time: 2:17 PM Originating Location (patient location): Home Distant Location (provider location): [facility] Medication Therapy Recommendations No medication therapy recommendations to display documented in this encounter Plan of Treatment Upcoming Encounters Date Type Specialty Care Team Description 10/21/2022 Office Visit Pulmonology Obdulio Barrera MD [address] [phone] (Wo rk) 10/25/2022 PRE VISIT ENT Charo Burton MD Previsit [address] [place] [address] (Wo rk) 10/25/2022 Office Visit ENT Charo Burton MD [address] [place], [place] [address] (Wo rk) 10/25/2022 Office Visit ENT Provider, Ent Dysphonia Resource Manager Forester 10/25/2022 Virtual Visit Pain & Palliative [place] [address] [place], [place] [address] 10/28/2022 Appointment Speech Therapy Anabel Chew, ENERGY CONTROL OFFICER [address] [phone] (Wo rk) 11/17/2022 Appointment Speech Therapy Anabel Chew SLP [address] [phone] (Wo rk) 12/01/2022 Office Visit Pain [place] [address] [place], [place] [address] (Wo rk) 12/23/2022 Office Visit Neurology Colby Yeung MD [address] [facility] [address] (Wo rk) Scheduled Referrals Name Type [...] unspecified whether compl icated, unspecified whether persistent documented in this encounter Additional Health Concerns Assessment Noted Time PHQ-9 Depression Total Score: 19 05/27/2022 1:35 PM CD T documented as of this encounter Care Teams Apartment Hotel Manager Relationship Specialty Start Date End Date Aydee Burton, PCP - General Nurse Practitioner - 05/17/21 BEEF SPECIALIST MECHANICAL DRAWING TEACHER Family [address] [place], [place] [phone] Aydee Burton, Assigned PCP 04/28/21 BEEF SPECIALIST MECHANICAL DRAWING TEACHER [address] [place] [phone] Louisa Hood, Assigned Neuroscience 07/11/21 BEEF SPECIALIST MECHANICAL DRAWING TEACHER Provider [address] [place] [address] Clari Ruiz Pharmacist Pharmacist 08/06/21 06/07/22 Jocelyn [facility] [address] [facility] [address] [place] [address] [place], Assigned Sleep 08/01/21 Angel Turcios, Provider [address] [place] [address] Lesly Celaya MD Assigned Surgical 09/05/21 [address] [facility] [place] [address] Tawana Patel MA [facility] 09/30/21 Worker Ramses Mcpherson Assigned OBGYN 11/07/21 MD Onesimo Provider [address] [place], [place] [address] Obdulio Barrera MD Critical Care 01/24/22 420 [facility] [address] [place], [place] [address] Obdulio Barrera, Assigned Pulmonology 02/06/22 MD Provider [address] [address] Lesvia Stanley, GHADA Cardiac Rehabilitation 03/03/22 03/03/23 [facility] Therapist [address] [place] [phone] Marilia Deluna, PhD Assigned Behavioral 02/20/22 [address] [facility] [place] [address] Niyah Decker, [facility] Pharmacist Pharmacist 03/07/22 420 [facility] 812 [place], [place] [address] Clari Poole, Pharmacist Pharmacist 03/07/22 06/15/22 [facility] [address] [facility] [place] [address] Lesvia Stanley, GHADA Cardiac Rehabilitation 03/17/22 03/17/23 [facility] Therapist [address] [place] [address] Niyah Warner, Lead Customs Collector Primary Care - CC 06/27/22 RN Delia Avila, Pharmacist Pharmacist 06/07/22 [facility] [address] [place] [address] Niyah Dceker, [facility] Assigned MTM 05/28/22 06/10/[address] [place] [address] 812 [place] [address] Mago Swift, [facility] Lead Customs Collector Mobile Security Architect - 08/05/21 Clinical documented as of this encounter
--- OUTSIDE RECORDS SUMMARY | 2022-10-21 08:51 | XMS_ITS | Encounter Summary ---
:1980 Author Organization [facility] Address [address] [place] [address] Care Team Providers Name Role Phone Aydee Burton INDUSTRIAL MACHINERY MECHANIC SENIOR PARALEGAL Primary Care Provider Aydee Burton INDUSTRIAL MACHINERY MECHANIC SENIOR PARALEGAL Unavailable [phone] Louisa Hood INDUSTRIAL MACHINERY MECHANIC SENIOR PARALEGAL Unavailable [phone] Clari Ruiz [facility] Unavailable Angel Hannah MD Unavailable Lesly Celaya MD Unavailable Tawana Patel MA Unavailable Unavailable Ramses Mcpherson MD Unavailable [phone] Obdulio Barrera MD Unavailable [phone] Obdulio Barrera MD Unavailable [phone] Lesvia Stanley Unavailable Marilia Deluna PhD Unavailable Niyah Decker [facility] Unavailable WedClari bhakta [facility] Unavailable KandiLesvia moon Esther Unavailable Clari Ruiz Jocelyn [facility] Unavailable IsraNiyah carter RN Unavailable Mago Swift [facility] Unavailable Encounter Details Date Type [...] How often do you attend congregational or restorationism services? 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 documented as of this encounter Plan of Treatment Upcoming Encounters Date Type Specialty Care Team Description 10/21/2022 Office Visit Pulmonology Obdulio Barrera MD [address] [place] [phone] (Wo rk) 10/25/2022 PRE VISIT ENT Charo Burton MD Previsit [address] [place] [phone] (Wo rk) 10/25/2022 Office Visit ENT Charo Burton MD [address] [place] [phone] (Wo rk) 10/25/2022 Office Visit ENT Provider, Ent Dysphonia Pit Crew Support Worker 10/25/2022 Virtual Visit Pain & Palliative [place] [address] [place], [place] [address] 10/28/2022 Appointment Speech Therapy Anabel Chew, ACADEMIC SUPPORT CENTER DIRECTOR [address] [phone] (Wo rk) 11/17/2022 Appointment Speech Therapy Anabel Chew, ACADEMIC SUPPORT CENTER DIRECTOR [address] [phone] (Wo rk) 12/01/2022 Office Visit Pain & [place] [address] [place], [place] [address] (Wo rk) 12/23/2022 Office Visit Neurology Colby Yeung MD [address] [phone] (Wo rk) documented as of this encounter Visit Diagnoses Not on filedocumented in this encounter Additional Health Concerns Assessment Noted Time PHQ-9 Depression Total Score: 19 05/27/2022 1:35 PM CD T documented as of this encounter Care Teams Voltage Inspector Relationship Specialty Start Date End Date Aydee Burton, PCP - General Nurse Practitioner - 05/17/21 INDUSTRIAL MACHINERY MECHANIC SENIOR PARALEGAL Family [address] [place], [place] [phone] Aydee Burton, Assigned PCP 04/28/21 INDUSTRIAL MACHINERY MECHANIC SENIOR PARALEGAL [address] [place], [place] [address] Louisa Hood, Assigned Neuroscience 07/11/21 INDUSTRIAL MACHINERY MECHANIC SENIOR PARALEGAL Provider [address] [place], [place] [address] Clari Ruiz Pharmacist Pharmacist 08/06/21 06/07/22 [facility] [address] [place], [place] [address] [place], Assigned Sleep 08/01/21 Angel Turcios, Provider [address] [place], [place] [address] Lesly Celaya MD Assigned Surgical 09/05/21 [address] Provider [place], [place] [phone] Tawana Patel MA [facility] Health 09/30/21 Worker Ramses Mcpherson Assigned OBGYN 11/07/21 MD Onesimo Provider [address] [place] [address] Obdulio Barrera MD Critical Care 01/24/22 420 [facility] [address] [place], [place] [address] Obdulio Barrera, Assigned Pulmonology 02/06/22 MD Provider 420 [facility] [address] [place] [address] Lesvia Stanley, GHADA Cardiac Rehabilitation 03/03/22 03/03/23 [facility] Therapist [address] [place], [place] [address] Marilia Deluna, PhD Assigned Behavioral 02/20/22 [address] [facility] [place] [address] Niyah Decker, [facility] Pharmacist Pharmacist 03/07/22 420 [facility] [address]12 [place], [place] [address] Clari Poole, Pharmacist Pharmacist 03/07/22 06/15/22 [facility] [address] [facility] [address] [place] [phone] Lesvia Stanley, GHADA Cardiac Rehabilitation 03/17/22 03/17/23 [facility] Therapist [address] [place], [place] [address] Clari Ruiz Assigned [facility] 04/09/22 05/27/22 Jocelyn [facility] Pharmacist [address] [place], [place] [address] Niyah Warner, Lead Fitting Room Supervisor Primary Care - CC 06/27/22 RN Mago Swift, [facility] Lead Fitting Room Supervisor Director Of Restaurant - 08/05/21 Clinical documented as of this encounter
--- OUTSIDE RECORDS SUMMARY | 2022-10-21 08:51 | XMS_ITS | Encounter Summary ---
:1980 Author Organization [place] Address [address] [place] [address] Care Team Providers Name Role Phone Aydee Burton TRIMMER AND BORER MACHINE OPERATOR INTERMEDIATE ACCOUNTANT Primary Care Provider Aydee Burton TRIMMER AND BORER MACHINE OPERATOR INTERMEDIATE ACCOUNTANT Unavailable [phone] Louisa Hood TRIMMER AND BORER MACHINE OPERATOR INTERMEDIATE ACCOUNTANT Unavailable [phone] Clari Ruiz [facility] Unavailable [phone] Angel Hannah MD Unavailable Lesly Celaya MD Unavailable Tawana Patel MA Unavailable Unavailable Ramses Mcpherson MD Unavailable [phone] Obdulio Barrera MD Unavailable [phone] Obdulio Barrera MD Unavailable [phone] Lesvia Stanley Unavailable Marilia Deluna PhD Unavailable Niyah Decker [facility] Unavailable Clari Poole [facility] Unavailable JadenLesvia Esther EP Unavailable Niyah Warner RN Unavailable Niyah Decker [facility] Unavailable Mago Swift [facility] Unavailable Reason for Visit Reason Onset Date Comments Refill Request 06/06/2022 [facility] Inhaler Encounter Details Date Type Department Care Team Description 06/06/2022 Refill M [facility] Obdulio Barrera Refill R equest ([facility] Jaquan fidencio Bailey MD Inhaler) [address] [place] [address] [place], [place] [phone] (Wo rk) Social History Tobacco Use Types [...] often do you attend jehovah's witness or jew services? Never 08/05/2021 Do you [...] at Date Recorded Female 11/09/2021 7:53 PM THEATRICAL PERFORMER COVID-19 Exposure Response Date Recorded In the [...] 90 days) Jun 07, 2022 1:30 PM [facility] with Delia Avila RPH [facility] ([facility] ) 8[address] [facility] [phone] Jun 23, 2022 11:30 AM Return Visit with Madalyn Ponce MD [facility] [place] ([facility] ) [address] [facility] 300 [facility] [address] Jun 24, 2022 9:50 AM (Arrive by 9:30 AM) Annual Wellness Visit with Aydee Burton APRN CNP [facility] ([facility] ) [address] [place] [address] [phone] Jul 13, 2022 3:30 PM Return Visit with Obdulio Barrera MD [facility] [place] ([facility] ) [address] [place] [phone] ??? benzonatate (TESSALON) 200 MG capsule 30 [...] PM MTM New with Delia Avila RPH [facility] ([facility] ) 8[address] [facility] [phone] Jun 23, 2022 11:30 AM Return Visit with Madalyn Ponce MD [facility] [place] ([facility] ) [address] [facility] 300 [facility] [address] Jun 24, 2022 9:50 AM (Arrive by 9:30 AM) Annual Wellness Visit with Aydee Burton APRN CNP [facility] ([facility] ) [address] [place] [phone] Jul 13, 2022 3:30 PM Return Visit with Obdulio Barrera MD [facility] [place] ([facility] ) [address] [place] [phone] Requested Prescriptions Pending Prescriptions Disp Refills ??? tiotropium (SPIRIVA) 18 MCG inhaled capsule 30 capsule 3 Sig: Inhale 1 capsule (18 mcg) into the lungs daily There is no refill protocol information for this order documented in this encounter Plan of Treatment Upcoming Encounters Date Type Specialty Care Team Description 10/21/2022 Office Visit Pulmonology Obdulio Barrera MD 420 [facility] 276 [place], [place] [address] (Wo rk) 10/25/2022 PRE VISIT ENT Charo Burton MD Previsit [address] [place], [place] [address] (Wo rk) 10/25/2022 Office Visit ENT Charo Burton MD [address] [place] [phone] (Wo rk) 10/25/2022 Office Visit ENT Provider, Ent Dysphonia Per Diem Physical Therapist 10/25/2022 Virtual Visit Pain & Palliative Care [place] [address] [place], [place] [address] 10/28/2022 Appointment Speech Therapy Anabel Chew, MACHINE TECHNICIAN [address] [place], [place] [address] (Wo rk) 11/17/2022 Appointment Speech Therapy Anabel Chew, MACHINE TECHNICIAN [address] [place], [place] [address] (Wo rk) 12/01/2022 Office Visit Pain & [place] [address] [place], [place] [address] (Wo rk) 12/23/2022 Office Visit Neurology Colby Yeung MD [address] [place] [address] (Wo rk) documented as of this encounter Visit Diagnoses Diagnosis SOB (shortness of breath) Shortness of breath Moderate persistent asthma without compl ication Unspecified asthma documented in this encounter Additional Health Concerns Assessment Noted Time PHQ-9 Depression Total Score: 19 05/27/2022 1:35 PM CD T documented as of this encounter Care Teams Control Panel Builder Relationship Specialty Start Date End Date Aydee Burton, PCP - General Nurse Practitioner - 05/17/21 TRIMMER AND BORER MACHINE OPERATOR INTERMEDIATE ACCOUNTANT Family [address] [place], [place] [phone] Aydee Burton, Assigned PCP 04/28/21 TRIMMER AND BORER MACHINE OPERATOR INTERMEDIATE ACCOUNTANT [address] [place], [place] [phone] Louisa Hood, Assigned Neuroscience 07/11/21 TRIMMER AND BORER MACHINE OPERATOR INTERMEDIATE ACCOUNTANT Provider [address] [place] [address] Clari Ruiz Pharmacist Pharmacist 08/06/21 06/07/22 [facility] [address] [place], [place] [phone] [place], Assigned Sleep 08/01/21 Angel Turcios, Provider [address] [place], [place] [address] Lesly Celaya MD Assigned Surgical 09/05/21 [address] Provider [place], [place] [address] Tawana Patel MA [facility] 09/30/21 Worker Ramses Mcpherson Assigned OBGYN 11/07/21 MD Onesimo Provider [address] [place], [place] [phone] Obdulio Barrera MD Critical Care 01/24/[address] [place] [address] Obdulio Barrera, Assigned Pulmonology 02/06/22 MD Provider [address] [place] [address] Lesvia Stanley, GHADA Cardiac Rehabilitation 03/03/22 03/03/23 [facility] Therapist [address] [place] [address] Marilia Deluna, PhD Assigned Behavioral 02/20/22 [address] [facility] [place] [address] Niyah Decker, [facility] Pharmacist Pharmacist 03/07/22 420 [facility] 812 [place] [address] Clari Poole, Pharmacist Pharmacist 03/07/22 06/15/22 [facility] 3[address] [facility] [address] [place] [address] Lesvia Stanley, GHADA Cardiac Rehabilitation 03/17/22 03/17/23 [facility] Therapist [address] [place] [address] Niyah Warner, Lead Email Marketer Primary Care - CC 06/27/22 RN Niyah Decker, [facility] Assigned MTM 05/28/22 06/10/22 420 [facility] 812 [place] [address] Mago Swift, [facility] Lead Email Marketer Personnel Interviewer - 08/05/21 Clinical documented as of this encounter
--- OUTSIDE RECORDS SUMMARY | 2022-10-21 08:51 | XMS_ITS | Encounter Summary ---
:1980 Author Organization [facility] Address [address] [place] [address] Care Team Providers Name Role Phone Aydee Burton BAKER PIE FISHING TOOL SUPERVISOR Primary Care Provider Aydee Burton BAKER PIE FISHING TOOL SUPERVISOR Unavailable [phone] Louisa Hood BAKER PIE FISHING TOOL SUPERVISOR Unavailable [phone] [facility] Ruiz [facility] Unavailable [phone] Angel Hannah MD Unavailable Lesly Celaya MD Unavailable Tawana Patel MA Unavailable Unavailable Ramses Mcpherson MD Unavailable [phone] Obdulio Barrera MD Unavailable [phone] Obdulio Barrera MD Unavailable Lesvia Stanley Unavailable Marilia Deluna PhD Unavailable Niyah Decker [facility] Unavailable Clari Poole [facility] Unavailable Lesvia Stanleyn EP Unavailable Clari Ruiz Jocelyn [facility] Unavailable Niyah Warner RN Unavailable Mago Swift [facility] Unavailable Reason for Referral Med Therapy Management (Urgent: 3-5 Days) - Closed Specialty Diagnoses / Procedures Referred By Contact Refer red To Contact Pharmacist Diagnoses Fatigue, unspecified type Aydee Burton APRN FISHING TOOL SUPERVISOR [address] [place] [address] Referral ID Status Reason Start Date Expiration Date Visits Requ ested Visits Authorized [id number] Closed 05/27/2022 05/27/2023 1 1 Reason for Visit Reason Comments ER F/U Encounter Details Date Type Department Care Team Description 05/27/2022 Office Visit [facility] Aydee Burton u nspecified type (Primary Dx); Clinic CharlotteNiall Mendez APRN CNP Bilateral occipital neuralgia; [address] Facial pain; [address] Need for pneumococcal vaccination [place], [place] [address] [phone] Social History Tobacco Use Types Packs/Day Years [...] How often do you attend scientologist or confucianism services? 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 Montelukast Oral Tablet 10 mg (Taiwanese)documented in this encounter Progress Notes Aydee Burton, ELADIO FISHING TOOL SUPERVISOR - 05/27/2022 1:50 PM CDT Images from the original note were not included. Assessment & Plan Fatigue, unspecified type Has had thorough work-up specific cause has been found. This is felt likely to be multifactorial. Has multiple medications that I feel contribute to this. She has completed [employer] testing has psych appointment coming up. She [...] Wellness exam fasting labs. Aydee Burton APRN [facility] Marta is a 42 year old, presenting for the following health issues: ER F/U HPI ED/UC Followup: Facility: [facility] ED Date of visit: 05/25/2022 Reason for [...] management appts in June. 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 Left work yesterday. [...] Office Visit Pulmonology Obdulio Barrera MD [address] [phone] (Wo rk) 10/25/2022 PRE VISIT ENT Charo Burton MD Previsit [address] [place] [phone] (Wo rk) 10/25/2022 Office Visit ENT Charo Burton MD [address] [place] [address] [phone] (Wo rk) 10/25/2022 Office Visit ENT Provider, Ent Dysphonia Program Evaluator 10/25/2022 Virtual Visit Pain & Palliative [place] [address] [place], [place] [address] 10/28/2022 Appointment Speech Therapy Anabel Chew SLP [address] [phone] (Wo rk) 11/17/2022 Appointment Speech Therapy Anabel Chew SLP [address] [phone] (Wo rk) 12/01/2022 Office Visit Pain & [place] [address] [place], [place] [address] (Wo rk) 12/23/2022 Office Visit Neurology Colby Yeung MD [address], [place] [phone] (Wo rk) Scheduled Referrals Name Type Priority [...] 11:29 AM CDT Unknown Aydee Burton APRN FISHING TOOL SUPERVISOR LAB - BLOOD ORDERABLES Performing Organization Address City/State/[place] [address] Care Lab [address] Lab (1st floor, no room number) [...] 11:29 AM CDT Unknown Aydee Burton APRN FISHING TOOL SUPERVISOR LAB - BLOOD ORDERABLES Performing Organization Address City/[facility]/[place] [phone] Care Lab [address] Lab (1st floor, no room number) Ferritin (05/25/2022 11:23 AM CDT) P athologist Signature Ferritin 15 12 - 150 05/27/2022 [facility] ng/mL 2:59 PM CDT Specimen Anatomical Collection Method / Collection Time Recei edil Time (Source) Location / Volume Laterality Blood STRUCTURE OF RIGHT Venipuncture / 05/25/2022 11:23 UPPER LIMB / Unknown AM CDT 11:29 AM CDT Unknown Aydee Burton APRN FISHING TOOL SUPERVISOR LAB - BLOOD ORDERABLES Performing Organization Address City/State/ZIP Code [place] [address] Care Lab [address] Lab (1st floor, no room number) [...] intake, and treatment affect the concentration of 58-oenkksw-Mxcsvat D. Values may decrease during winter months [...] e Number [facility] CORE/PROT/ENDO UM Specialty [place], [place] [address] Core/Prot/Endo [address] [facility] [address] Building, Room 3-580 TSH with [...] CDT 11:29 AM CDT Unknown Aydee Burton BAKER PIE FISHING TOOL SUPERVISOR LAB - BLOOD ORDERABLES Performing Organization Address City/State/ZIP Code [place] [phone] Care Lab [address] Lab (1st floor, no room number) documented in this encounter Visit Diagnoses Diagnosis Fatigue, unspecified type - Primary Bilateral occipital neuralgia Other syndromes affecting cervical regio n Facial pain Headache Need for pneumococcal vaccination Need for prophylactic vaccination agains t streptococcus pneumoniae (pneumococcus) documented in this encounter Additional Health Concerns Assessment Noted Time PHQ-9 Depression Total Score: 19 05/27/2022 1:35 PM CD T documented as of this encounter Care Teams Political Research Scientist Relationship Specialty Start Date End Date Aydee Burton, PCP - General Nurse Practitioner - 05/17/21 BAKER PIE FISHING TOOL SUPERVISOR Family [address] [place], [place] [phone] Aydee Burton, Assigned PCP 04/28/21 BAKER PIE FISHING TOOL SUPERVISOR [address] [place], [place] [address] Louisa Hood, Assigned Neuroscience 07/11/21 BAKER PIE FISHING TOOL SUPERVISOR Provider [address] [place] [address] Clari Ruiz Pharmacist Pharmacist 08/06/21 06/07/[address] [phone] [place], Assigned Sleep 08/01/21 Angel Turcios, Provider [address] [place], [place] [address] Lesly Celaya MD Assigned Surgical 09/05/21 [address] [facility] Provider [place], [place] 29[address] Tawana Patel MA [facility] 09/30/21 Worker Ramses Mcpherson Assigned OBGYN 11/07/21 MD Onesimo Provider [address] [place], [place] [phone] Obdulio Barrera MD Critical Care 01/24/[address] [place] [address] 276 [place], [place] [address] Obdulio Barrera, Assigned Pulmonology 02/06/22 MD Provider [address] [place] [address] 276 [place], [place] [address] Lesvia Stanley, GHADA Cardiac Rehabilitation 03/03/22 03/03/23 [facility] Therapist [address] [place], [place] [address] Marilia Deluna, PhD Assigned Behavioral 02/20/22 [address] [facility] Provider [place], [place] 832[address] Niyah Decker, [facility] Pharmacist Pharmacist 03/07/22 [address] [facility] [address] [place], [place] [address] Clari Poole, Pharmacist Pharmacist 03/07/22 06/15/22 [facility] [address] [facility] [address] [place], [place] [phone] Lesvia Stanley, GHADA Cardiac Rehabilitation 03/17/22 03/17/23 [facility] Therapist [address] [phone] Clari Ruiz Assigned [place] 04/09/22 05/27/22 Jocelyn [facility] Pharmacist [address] [place] [address] Niyah Warner, Lead Wharf Labourer Primary Care - CC 06/27/22 RN Mago Swift, [facility] Lead Wharf Labourer Svp Group Director - 08/05/21 Clinical documented as of this encounter
--- OUTSIDE RECORDS SUMMARY | 2022-10-21 08:51 | XMS_ITS | Encounter Summary ---
:1980 Author Organization [facility] Address [address] [place] [address] Care Team Providers Name Role Phone Aydee Burton DISTRIBUTION AGENT CARD SERVICES SPECIALIST Primary Care Provider [phone] Aydee Burton DISTRIBUTION AGENT CARD SERVICES SPECIALIST Unavailable [phone] Louisa Hood DISTRIBUTION AGENT CARD SERVICES SPECIALIST Unavailable Angel Hannah MD Unavailable Lesly Celaya MD Unavailable Tawana Patel MA Unavailable Unavailable Ramses Mcpherson MD Unavailable [phone] Obdulio Barrera MD Unavailable [phone] Obdulio Barrera MD Unavailable [phone] Lesvia Stanley Unavailable Marilia Deluna PhD Unavailable Niyah Decker [facility] Unavailable Clari Poole [facility] Unavailable Lesvia Stanley EP Unavailable Niyah Warner RN Unavailable Delia Avila [facility] Unavailable [phone] Niyah Decker [facility] Unavailable Jamison Mago M [facility] Unavailable Encounter Details Date Type Department Care Team Description 06/08/2022 Virtual Visit [facility] Marilia Deluna Bil ateral occipital neuralgia (Primary Dx); Pain Management PhD Upper back pain; [place] [id number] [place] [address] Chronic tension-type headache, not intra ctable [address] [place], [place] [address] [address] [place] [address] Social History Tobacco Use Types [...] How often do you attend christianity or jehovah's witness services? 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 COVID-19 Exposure Response Date Recorded In [...] invitation sent by: Text to cell phone: .[phone]} Video Start Time: 3:00 PM Additional provider [...] care with Madalyn Ponce MD since Lucas Anaya has left clinic - work tends to be primary trigger, stress can also trigger increased pain - struggling with avoidance of engaging in tasks like going through bills and paying them - encouraged to ask [facility] to determine if you might benefit from additional support services such as [employer] worker - 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 ?? Any time you are unable to keep your appointment we ask that you call us at [phone] at least24 hours in advance to cancel.This will allow us to offer the appointment time to another patient. ?? Multiple missed appointments may lead to dismissal from the clinic. Video-Visit Details Type of service: Video Visit Video End Time (time video stopped): 3:40 PM Originating Location (pt. Location): Home Distant Location (provider location): [facility] Mode of Communication: Video Conference via Claude Deluna PsyD LP Licensed Psychologist Outpatient Clinic Therapist [facility] Pain Management documented in this encounter Plan of Treatment Upcoming Encounters Date Type Specialty Care Team Description 10/21/2022 Office Visit Pulmonology Obdulio Barrera MD [address] [place] [phone] (Wo rk) 10/25/2022 PRE VISIT ENT Charo Burton MD Previsit [address] [place] [address] [phone] (Wo rk) 10/25/2022 Office Visit ENT Charo Burton MD [address] [place] [address] [phone] (Wo rk) 10/25/2022 Office Visit ENT Provider, Ent Dysphonia Auto Transport Driver 10/25/2022 Virtual Visit Pain & Palliative [place] [address] [place], [place] [address] 10/28/2022 Appointment Speech Therapy Anabel Chew, MAINTENANCE JOURNEYMAN [address] [phone] (Wo rk) 11/17/2022 Appointment Speech Therapy Anabel Chew, MAINTENANCE JOURNEYMAN [address] [phone] (Wo rk) 12/01/2022 Office Visit Pain & [place] [address] [place], [place] [address] (Wo rk) 12/23/2022 Office Visit Neurology Colby Yeung MD [address] [address] (Wo rk) documented as of this encounter Procedures Procedure Name Priority Date/Time Associated Diagnosis Comme nts [place] [facility] Routine 06/08/2022 3:45 PM CDT Bilateral oc cipital INTERVENTION, neuralgia INDIVIDUAL, INITIAL 30 Upper krystal k pain MINS Chronic tension-type headache, not intractable documented in this encounter Visit Diagnoses Diagnosis Bilateral occipital neuralgia - Primary Other syndromes affecting cervical regio n Upper back pain Pain in thoracic spine Chronic tension-type headache, not intra ctable Chronic tension type headache documented in this encounter Additional Health Concerns Assessment Noted Time PHQ-9 Depression Total Score: 19 05/27/2022 1:35 PM CD T documented as of this encounter Care Teams Director Critical Care Relationship Specialty Start Date End Date Aydee Burton, PCP - General Nurse Practitioner - 05/17/21 DISTRIBUTION AGENT CARD SERVICES SPECIALIST Family [address] [place], [place] [phone] Aydee Burton, Assigned PCP 04/28/21 DISTRIBUTION AGENT CARD SERVICES SPECIALIST [address] [place], [place] 7700[address] Louisa Hood, Assigned Neuroscience 07/11/21 DISTRIBUTION AGENT CARD SERVICES SPECIALIST Provider [address] [place], [place] [address] [place], Assigned Sleep 08/01/21 Angel Turcios, Provider [address] [place], [place] [address] Lesly Celaya MD Assigned Surgical 09/05/21 [address] Provider [place], [place] [phone] Tawana Patel MA [facility] 09/30/21 Worker Ramses Mcpherson Assigned OBGYN 11/07/21 MD Onesimo Provider [address] [place], [place] [phone] Obdulio Barrera MD Critical Care 01/24/[address] [place] [address] [phone] Obdulio Barrera, Assigned Pulmonology 02/06/22 MD Provider [address] [place] [address] [phone] Lesvia Stanley, EP Cardiac Rehabilitation 03/03/22 03/03/23 [facility] Therapist [address] [address] Marilia Deluna, PhD Assigned Behavioral 02/20/22 [address] [facility] [place] [address] Niyah Decker, [facility] Pharmacist Pharmacist 03/07/22 420 [facility] [address] [place], [place] [address] Clari Poole, Pharmacist Pharmacist 03/07/22 06/15/22 [facility] [address] [facility] [place] [address] Lesvia Stanley, GHADA Cardiac Rehabilitation 03/17/22 03/17/23 [facility] Therapist [address] [address] Niyah Warner, Lead Siene Maker Primary Care - CC 06/27/22 RN Delia Avila, Pharmacist Pharmacist 06/07/22 [facility] [address] [place] [address] Niyah Decker, [facility] Assigned MTM 05/28/22 06/10/[address] [place] [address] 812 [place] [address] Mago Swift, [facility] Lead Siene Maker Online Marketing Coordinator - 08/05/21 Clinical documented as of this encounter
--- OUTSIDE RECORDS SUMMARY | 2022-10-21 08:51 | XMS_ITS | Encounter Summary ---
:1980 Author Organization [facility] Address [address] [place] [address] Care Team Providers Name Role Phone Aydee Burton INSTRUCTIONAL DESIGN SPECIALIST HOSPITAL AIDE Primary Care Provider Aydee Burton INSTRUCTIONAL DESIGN SPECIALIST HOSPITAL AIDE Unavailable [phone] Louisa Hood INSTRUCTIONAL DESIGN SPECIALIST HOSPITAL AIDE Unavailable Angel Hannah MD Unavailable Lesly Celaya MD Unavailable Tawana Patel MA Unavailable Unavailable Ramses Mcpherson MD Unavailable [phone] Obdulio Barrera MD Unavailable [phone] Obdulio Barrera MD Unavailable [phone] Lesvia Stanley Unavailable Marilia Deluna PhD Unavailable Niyah Decker [facility] Unavailable Clari Poole [facility] Unavailable Lesvia Stanley EP Unavailable Niyah Warner RN Unavailable Delia Avila [facility] Unavailable [phone] Delia Avila [facility] Unavailable [phone] JamisonMago Terri [facility] Unavailable Encounter Details Date Type [...] How often do you attend moravian or nondenominational services? 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 documented as of this encounter Plan of Treatment Upcoming Encounters Date Type Specialty Care Team Description 10/21/2022 Office Visit Pulmonology Obdulio Barrera MD [address] [place] [address] [phone] (Wo rk) 10/25/2022 PRE VISIT ENT Charo Burton MD Previsit [address] [place] [address] [phone] (Wo rk) 10/25/2022 Office Visit ENT Charo Burton MD [address] [place] [address] [phone] (Wo rk) 10/25/2022 Office Visit ENT Provider, Ent Dysphonia Service Desk Lead 10/25/2022 Virtual Visit Pain & Palliative Care [place] [address] [place], [place] [address] 10/28/2022 Appointment Speech Therapy Anabel Chew, EXPERIENCE SPECIALIST [address] [phone] (Wo rk) 11/17/2022 Appointment Speech Therapy Anabel Chew EXPERIENCE SPECIALIST [address] [phone] (Wo rk) 12/01/2022 Office Visit Pain [place] [address] [place], [place] [address] (Wo rk) 12/23/2022 Office Visit Neurology Colby Yeung MD [address] [place] [phone] (Wo rk) documented as of this encounter Visit Diagnoses Not on filedocumented in this encounter Additional Health Concerns Assessment Noted Time PHQ-9 Depression Total Score: 19 06/14/2022 3:18 PM CD T documented as of this encounter Care Teams Venue Coordinator Relationship Specialty Start Date End Date Aydee Burton, PCP - General Nurse Practitioner - 05/17/21 INSTRUCTIONAL DESIGN SPECIALIST HOSPITAL AIDE Family [address] [place], [place] [phone] Aydee Burton, Assigned PCP 04/28/21 INSTRUCTIONAL DESIGN SPECIALIST HOSPITAL AIDE [address] [place], [place] [address] Louisa Hood, Assigned Neuroscience 07/11/21 INSTRUCTIONAL DESIGN SPECIALIST HOSPITAL AIDE Provider [address] [place], [place] [address] [place], Assigned Sleep 08/01/21 Angel Turcios, Provider [address] [place], [place] [address] Lesly Celaya MD Assigned Surgical 09/05/21 [address] [facility] Provider [place], [place] [phone] Tawana Patel [facility] 09/30/21 Worker Ramses Mcpherson Assigned OBGYN 11/07/21 MD Onesimo Provider [address] [place], [place] [address] Obdulio Barrera MD Critical Care 01/24/[address] [place] [address] [phone] Obdulio Barrera, Assigned Pulmonology 02/06/22 MD Provider [address] [address] Lesvia Stanley, EP Cardiac Rehabilitation 03/03/22 03/03/23 [facility] Therapist [address] [address] Marilia Deluna, PhD Assigned Behavioral 02/20/22 [address] [facility] [place] [address] Niyah Decker, [facility] Pharmacist Pharmacist 03/07/[address] [place] [address] 8[address] [place] [address] Clari Poole, Pharmacist Pharmacist 03/07/22 06/15/22 [facility] [address] [facility] [address] Lesvia Stanley, EP Cardiac Rehabilitation 03/17/22 03/17/23 [facility] Therapist [address] [address] Niyah Warner, Lead Process Manufacturing Engineer Primary Care - CC 06/27/22 RN Delia Avila, Pharmacist Pharmacist 06/07/[address] 314665 Delia Avila, Assigned [place] 06/11/2206/24 [facility] Pharmacist [address] [place] [address] [phone] Mago Swift, [facility] Lead Process Manufacturing Engineer Receptionist Nurse - 08/05/21 Clinical documented as of this encounter
--- OUTSIDE RECORDS SUMMARY | 2022-10-21 08:51 | XMS_ITS | Encounter Summary ---
:1980 Author Organization [facility] Address [address] [place] [address] Care Team Providers Name Role Phone Aydee Burton ROLL FORMING MACHINE SET UP OPERATOR VEST PRESSER Primary Care Provider Aydee Burton ROLL FORMING MACHINE SET UP OPERATOR VEST PRESSER Unavailable [phone] Louisa Hood ROLL FORMING MACHINE SET UP OPERATOR VEST PRESSER Unavailable [phone] Clari Ruiz [facility] Unavailable Angel Hannah MD Unavailable Lesly Celaya MD Unavailable Tawana Patel MA Unavailable Unavailable Ramses Mcpherson MD Unavailable [phone] Obdulio Barrera MD Unavailable [phone] Obdulio Barrera MD Unavailable [phone] Lesvia Stanley Unavailable Marilia Deluna PhD Unavailable Niyah Decker [facility] Unavailable Clari Poole [facility] Unavailable Lesvia Stanley EP Unavailable JosephClari jay [facility] Unavailable [phone] Niyah Warner RN Unavailable Mago Swift [facility] Unavailable Reason for Referral Diagnostic Imaging MRI (Routine) - Closed Specialty Diagnoses / Procedures Referred By Contact Refer red To Contact Radiology. Diagnoses Facial pain Raphael Ernst DO Sh Mri Procedures MR Brain w/o & w Contrast [address] [facility] [address] [place] [address] [place] [phone] Referral ID Status Reason Start Date Expiration Date Visits Requ ested Visits Authorized [id number] Closed 05/19/2022 05/19/2023 1 1 Reason for Visit Diagnostic Imaging MRI (Routine) - Closed Specialty Diagnoses / Procedures Referred By Contact Refer red To Contact Radiology. Diagnoses Facial pain Raphael Ernst DO Sh Mri Procedures MR Brain w/o & w Contrast [address] [facility] [address] [place] [address] [place] [phone] Referral ID Status Reason Start Date Expiration Date Visits Requ ested Visits Authorized [id number] Closed 05/19/2022 05/19/2023 1 1 Encounter Details Date Type Department Care Team Description 05/27/[address] [facility] Surendra Ernst DO Facial pain [facility] [address] [facility] [address] [place] [address] [place] [phone] Social History Tobacco Use Types Packs/Day Years [...] How often do you attend sikhism or mandaen services? 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 COVID-19 Exposure Response Date Recorded In [...] mg) 90 mL 07/2022 (2.5 MG/3ML) 0.083% by nebulization every [...] 2 times daily capsuleIndications: Bilateral occipital neuralgia methocarbamol Take 1-1.5 tablets [...] Obdulio Barrera MD 420 [facility] 276 [place], [place] [address] (Wo rk) 10/25/2022 PRE VISIT ENT Charo Burton MD Previsit [address] [place] [phone] (Wo rk) 10/25/2022 Office Visit ENT Charo Burton MD [address] [place] [phone] (Wo rk) 10/25/2022 Office Visit ENT Provider, Ent Dysphonia Catalyst Operator 10/25/2022 Virtual Visit Pain & [place]iative [place] [address] [place], [place] [address] 10/28/2022 Appointment Speech Therapy Anabel Chew, RESIN PAINTER [address] [address] (Wo rk) 11/17/2022 Appointment Speech Therapy Anabel Chew, RESIN PAINTER [address] [address] (Wo rk) 12/01/2022 Office Visit Pain & [place] [address] [place], [place] [address] (Wo rk) 12/23/2022 Office Visit Neurology Colby Yeung MD [address] [place] [address] (Wo rk) documented [...] microvessel ischemic disease. KG RECINOS MD Raphael Ernst DO IMG MRI ORDERABLES documented in this encounter Visit Diagnoses Diagnosis Facial pain Headache documented in this encounter Administered Medications Inactive [...] documented as of this encounter Care Teams Environmental Analyst Relationship Specialty Start Date End Date Aydee Burton, PCP - General Nurse Practitioner - 05/17/21 ROLL FORMING MACHINE SET UP OPERATOR VEST PRESSER Family [address] [place], [place] [address] Aydee Burton, Assigned PCP 04/28/21 ROLL FORMING MACHINE SET UP OPERATOR VEST PRESSER [address] [place], [place] [address] Louisa Hood, Assigned Neuroscience 07/11/21 ROLL FORMING MACHINE SET UP OPERATOR VEST PRESSER Provider 500 [place], [place] [address] Clari Ruiz Pharmacist Pharmacist 08/06/21 06/07/22 Jocelyn [facility] [address] [id number] [place], [place] [phone] [place], Assigned Sleep 08/01/21 Angel Turcios, Provider [address] [place] [address] Lesly Celaya MD Assigned Surgical 09/05/21 [address] [facility] Provider [place], [place] [address] Tawana Patel MA [facility] 09/30/21 Worker Ramses Mcpherson Assigned OBGYN 11/07/21 MD Onesimo Provider [address] [place] [address] Obdulio Barrera MD Critical Care 01/24/[address] [place] [address] 276 [place] [address] Obdulio Barrera, Assigned Pulmonology 02/06/22 MD Provider [address] [facility] 276 [place], [place] [address] Lesvia Stanley EP Cardiac Rehabilitation 03/03/22 03/03/23 [facility] Therapist [address] [place], [place] [address] Marilia Deluna, PhD Assigned Behavioral 02/20/22 [address] [facility] Provider [place], [place] [address] Niyah Decker, [facility] Pharmacist Pharmacist 03/07/22 420 [facility] [address] [place], [place] [phone] Clari Poole, Pharmacist Pharmacist 03/07/22 06/15/22 [facility] [address] [facility] [address] [place] [phone] Lesvia Stanley, GHADA Cardiac Rehabilitation 03/17/22 03/17/23 [facility] Therapist [address] [place] [address] Clari Ruiz Assigned [place] 04/09/22 05/27/22 Jocelyn [facility] Pharmacist [address] [place] [address] [place], [place] [address] Niyah Warner, Lead Traffic Recorder Primary Care - CC 06/27/22 RN Mago Swift, [facility] Lead Traffic Recorder Ops Manager - 08/05/21 Clinical documented as of this encounter
--- OUTSIDE RECORDS SUMMARY | 2022-10-21 08:52 | XMS_ITS | Encounter Summary ---
:1980 Author Organization [facility] Address [address] [place] [address] Care Team Providers Name Role Phone Aydee Burton TWIST MAKER COMMUNICATIONS ATTENDANT Primary Care Provider Aydee Burton TWIST MAKER COMMUNICATIONS ATTENDANT Unavailable [phone] Louisa Hood TWIST MAKER COMMUNICATIONS ATTENDANT Unavailable [phone] Clari Ruiz [facility] Unavailable Angel Hannah MD Unavailable Lesly Celaya MD Unavailable Tawana Patel MA Unavailable Unavailable Ramses Mcpherson MD Unavailable [phone] Obdulio Barrera MD Unavailable [phone] Obdulio Barrera MD Unavailable [phone] Lesvia Stanley Unavailable Marilia Deluna PhD Unavailable Niyah Decker [facility] Unavailable VirgilioClari [facility] Unavailable KandiLesvia moon Esther EP Unavailable Clari Ruiz [facility] Unavailable Niyah Warner RN Unavailable JamisonMago Terri [facility] Unavailable Reason for Visit Reason Comments Medication Therapy Management Encounter Details Date Type Department Care Team Description 05/24/2022 Virtual Visit M [facility] Niyah Decker, Pain (Primary Dx); Clinic [facility] Major depressive disorder, remission sta tus unspecified, unspecified whether recurrent; 303 [facility] 420 [facility] [place] (ge neralized anxiety disorder); [facility] 812 PTSD (post-traumatic stress disorder); [address] [place], [place] Severe asthma, unspecified w hether complicated, unspecified whether persistent; [place] [address] Non-seasonal allergic rhinitis due to po llen [...] at Date Recorded Female 11/09/2021 7:53 PM 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 To schedule another MTM appointment, please call the clinic directly or you may call the MTM scheduling line at [phone] or toll-free at . My Clinical Pharmacist's contact information: Please feel free to contact me with any questions or concerns you have. Niyah Decker , Pharm D [phone] (phone) Medication Therapy Management Pharmacist documented in [...] follow-up visit. Today's visit is a follow-up [facility] visit from 03/07/22. Reason for visit: medication [...] this clinic on 03/11) [facility] ([phone]) Genesight Testing completed 04/02/22 by Lory Nunez [...] the weekend when she was outside at [employer]. Follows with pulmonology (Dr. Barrera). Last visit [...] patient's provider(s). The patient was sent via [employer] a summary of these recommendations. Niyah Decker , Pharm D [phone] (phone) Medication Therapy Management Pharmacist Telemedicine Visit Details Type of service: Telephone visit Start Time: 1200pm End Time: 1220pm Originating Location (patient location): Home Distant Location (provider location): [facility] Medication Therapy Recommendations No medication therapy recommendations to display documented in this encounter Plan of Treatment Upcoming Encounters Date Type Specialty Care Team Description 10/21/2022 Office Visit Pulmonology Obdulio Barrera MD [address] [place] [address] (Wo rk) 10/25/2022 PRE VISIT ENT Charo Burton MD Previsit [address] [place] [address] [phone] (Wo rk) 10/25/2022 Office Visit ENT Charo Burton MD [address] [place] [phone] (Wo rk) 10/25/2022 Office Visit ENT Provider, Ent Dysphonia Pricing Strategist 10/25/2022 Virtual Visit Pain & [place] [address] [place], [place] [address] 10/28/2022 Appointment Speech Therapy Anabel Chew, INVENTORY CONTROL CLERK [address] [address] (Wo rk) 11/17/2022 Appointment Speech Therapy Anabel Chew, INVENTORY CONTROL CLERK [address] [address] (Wo rk) 12/01/2022 Office Visit Pain & [place] [address] [place], [place] [address] (Wo rk) 12/23/2022 Office Visit Neurology Colby Yeung MD [address] [place] [address] (Wo rk) documented as of this encounter Visit Diagnoses Diagnosis Pain - Primary Generalized pain Major depressive disorder, remission sta tus unspecified, unspecified whether recurrent [place] (generalized anxiety disorder) Generalized anxiety disorder PTSD (post-traumatic stress disorder) Posttraumatic stress disorder Severe asthma, unspecified whether compl icated, unspecified whether persistent Non-seasonal allergic rhinitis due to po llen documented in this encounter Additional Health Concerns Assessment Noted Time PHQ-9 Depression Total Score: 20 05/19/2022 9:02 AM CD T documented as of this encounter Care Teams Waste Water Treatment Plant Operator Relationship Specialty Start Date End Date Aydee Burton, PCP - General Nurse Practitioner - 05/17/21 TWIST MAKER COMMUNICATIONS ATTENDANT Family [address] [place], [place] [phone] Aydee Burton, Assigned PCP 04/28/21 TWIST MAKER COMMUNICATIONS ATTENDANT [address] [place] [address] Louisa Hood, Assigned Neuroscience 07/11/21 TWIST MAKER COMMUNICATIONS ATTENDANT Provider 500 [place] [address] Clari Ruiz Pharmacist Pharmacist 08/06/21 06/07/22 [facility] [address] [place], [place] [address] [place], Assigned Sleep 08/01/21 Angel Turcios, Provider [address] [place], [place] [address] Lesly Celaya MD Assigned Surgical 09/05/21 [address] Provider [place], [place] [phone] Amanda [facility] 09/30/21 Worker Ramses Mcpherson Assigned OBGYN 11/07/21 MD Onesimo Provider [address] [place] [address] Obdulio Barrera MD Critical Care 01/24/[address] [place] [address] Obdulio Barrera, Assigned Pulmonology 02/06/22 MD Provider [address] [address] Lesvia Stanley, GHADA Cardiac Rehabilitation 03/03/22 03/03/23 [facility] Therapist [address] [place] [address] Marilia Deluna, PhD Assigned Behavioral 02/20/22 [address] [facility] [place] [place] [address] Niyah Decker, [facility] Pharmacist Pharmacist 03/07/22 420 [place] [facility] 812 [place] [address] Clari Poole, Pharmacist Pharmacist 03/07/22 06/15/22 [facility] [address] [facility] [place] [address] Lesvia Stanley, GHADA Cardiac Rehabilitation 03/17/22 03/17/23 [facility] Therapist [address] [place] [address] Clari Ruiz Assigned MT 04/09/22 05/27/22 Jocelyn [facility] Pharmacist [address] [place], [place] [address] Niyah Warner, Lead Fuse Cutter Primary Care - CC 06/27/22 RN Mago Swift, [facility] Lead Fuse Cutter Senior Javascript Engineer - 08/05/21 Clinical documented as of this encounter
--- OUTSIDE RECORDS SUMMARY | 2022-10-21 08:52 | XMS_ITS | Encounter Summary ---
:1980 Author Organization [place] Address [address] [place] [address] Care Team Providers Name Role Phone Aydee Burton PRICE CLERK COMPREHENSIVE OPHTHALMOLOGIST Primary Care Provider Aydee Burton PRICE CLERK COMPREHENSIVE OPHTHALMOLOGIST Unavailable [phone] Louisa Hood PRICE CLERK COMPREHENSIVE OPHTHALMOLOGIST Unavailable [phone] Se Levy [facility] Unavailable Unavailable Clari Ruiz [facility] Unavailable [phone] Angel Hannah MD Unavailable Lesly Celaya MD Unavailable Tawana Patel MA Unavailable Unavailable Ramses Mcpherson MD Unavailable [phone] Obdulio Barrera MD Unavailable [phone] Obdulio Barrera MD Unavailable [phone] Lesvia Stanley Unavailable Marilia Deluna PhD Unavailable Niyah Decker [facility] Unavailable DelmiClari bhakta [facility] Unavailable JadenLesvian Unavailable Joseph Clari Jocelyn [facility] Unavailable [phone] Niyah Warner RN Unavailable Mago Swift [facility] Unavailable Encounter Details Date Type Department Care Team Description 05/11/2022 Virtual Visit [facility] Marilia Deluna Bil ateral occipital neuralgia (Primary Dx); Pain Management PhD Upper back pain; [address] Chronic tension-type headache, not intra ctable [address] [place], [place] [address] [address] [place] [address] Social History Tobacco Use [...] How often do you attend moravian or episcopal services? 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 ?? Any time you are unable to keep your appointment we ask that you call us at [phone] at [phone] hours in advance to cancel.This will allow us to offer the appointment time to another patient. ?? Multiple missed appointments may lead to dismissal from the clinic. Video-Visit Details Type of service: Video Visit Video End Time (time video stopped): 8:24 AM Originating Location (pt. Location): Home Distant Location (provider location): [facility] Mode of Communication: Video Conference via Claude Deluna PsyD LP Licensed Psychologist Outpatient Clinic Therapist [facility] Pain Management documented in this encounter Plan of Treatment Upcoming Encounters Date Type Specialty Care Team Description 10/21/2022 Office Visit Pulmonology Obdulio Barrera MD 420 [facility] 276 [place], [place] [address] (Wo rk) 10/25/2022 PRE VISIT ENT Charo Burton MD Previsit [address] [place] [phone] (Wo rk) 10/25/2022 Office Visit ENT Charo Burton MD [address] [place] [phone] (Wo rk) 10/25/2022 Office Visit ENT Provider, Ent Dysphonia Vocational Adviser 10/25/2022 Virtual Visit Pain & Palliative Care [place] [address] [place], [place] [address] 10/28/2022 Appointment Speech Therapy Anabel Chew, MERCHANDISING DIRECTOR [address] [place], [place] [address] (Wo rk) 11/17/2022 Appointment Speech Therapy Anabel Chew, MERCHANDISING DIRECTOR [address] [address] (Wo rk) 12/01/2022 Office Visit Pain & [place] [address] [place], [place] [address] (Wo rk) 12/23/2022 Office Visit Neurology Colby Yeung MD [address] [place] [address] (Wo rk) documented as of this encounter Procedures Procedure Name Priority Date/Time Associated Diagnosis Comme nts [facility] Routine 05/11/2022 8:28 AM CDT [...] documented as of this encounter Care Teams Pipe Foreman Relationship Specialty Start Date End Date Aydee Burton, PCP - General Nurse Practitioner - 05/17/21 PRICE CLERK COMPREHENSIVE OPHTHALMOLOGIST Family [address] [place], [place] [phone] Aydee Burton, Assigned PCP 04/28/21 PRICE CLERK COMPREHENSIVE OPHTHALMOLOGIST [address] [place], [place] [phone] Louisa Hood, Assigned Neuroscience 07/11/21 PRICE CLERK COMPREHENSIVE OPHTHALMOLOGIST Provider [address] [place], [place] [phone] Se Levy, Lead Manager Ccu 08/05/21 05/12/22 Clari Francois Pharmacist Pharmacist 08/06/21 06/07/22 [facility] [address] [place], [place] [address] Tone Hannah Sleep 08/01/21 Angel Turcios Provider [address] [place], [place] [address] Lesly Celaya MD Assigned Surgical 09/05/21 [address] [place] [address] Tawana Patel MA [facility] 09/30/21 Worker Ramses Mcpherson Assigned OBGYN 11/07/21 MD Onesimo Provider [address] [place] [address] Obdulio Barrera MD Critical Care 01/24/[address] [place] [address] 276 [place], [place] [address] Obdulio Barrera, Assigned Pulmonology 02/06/22 MD Provider [address] [place] [address] 276 [place], [place] [address] Lesvia Stanley, GHADA Cardiac Rehabilitation 03/03/22 03/03/23 [facility] Therapist [address] [address] Marilia Deluna, PhD Assigned Behavioral 02/20/22 [address] [facility] Provider [place], [place] [address] Niyah Decker, [facility] Pharmacist Pharmacist 03/07/[address] [place] [address] 812 [place] [address] Clari Poole, Pharmacist Pharmacist 03/07/22 06/15/22 [facility] [address] [place] [address] Lesvia Stanley, GHADA Cardiac Rehabilitation 03/17/22 03/17/23 [facility] Therapist [address] [address] [address] Clari Ruiz Assigned MTM 04/09/22 05/27/22 Jocelyn [facility] Pharmacist [address] [facility] [address] [place], [place] [phone] Niyah Warner, Lead Manager Ccu Primary Care - CC 06/27/22 RN Mago Swift, [facility] Lead Manager Ccu Audit Tech - 08/05/21 Clinical documented as of this encounter
--- OUTSIDE RECORDS SUMMARY | 2022-10-21 08:52 | XMS_ITS | Encounter Summary ---
:1980 Author Organization [place] Address [address] [place] [address] Care Team Providers Name Role Phone Aydee Burton PER DIEM NURSE COLLECTION ADMINISTRATOR Primary Care Provider Aydee Burton PER DIEM NURSE COLLECTION ADMINISTRATOR Unavailable [phone] Louisa Hood PER DIEM NURSE COLLECTION ADMINISTRATOR Unavailable [phone] Se Levy [facility] Unavailable Unavailable Clari Ruiz [facility] Unavailable [phone] Angel Hannah MD Unavailable Lesly Celaya MD Unavailable Tawana Patel MA Unavailable Unavailable Ramses Mcpherson MD Unavailable [phone] Obdulio Barrera MD Unavailable [phone] Obdulio Barrera MD Unavailable [phone] Lesvia Stanley Unavailable Marilia Deluna PhD Unavailable Niyah Decker [facility] Unavailable Clari Poole [facility] Unavailable JadenLesvia Unavailable Clari Ruiz [facility] Unavailable [phone] Mago Swift [facility] Unavailable Encounter Details Date Type Department [...] How often do you attend methodist or moravian services? 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 documented as of this encounter Plan of Treatment Upcoming Encounters Date Type Specialty Care Team Description 10/21/2022 Office Visit Pulmonology Obdulio Barrera MD [address] [phone] (Wo rk) 10/25/2022 PRE VISIT ENT Charo Burton MD Previsit 909 [place] [address] (Wo rk) 10/25/2022 Office Visit ENT Charo Burton MD [address] [place] [address] (Wo rk) 10/25/2022 Office Visit ENT Provider, Ent Dysphonia Materials Inspector 10/25/2022 Virtual Visit Pain & Palliative Care Marilia Deluna[place] PhD [address] [place], [place] [address] 10/28/2022 Appointment Speech Therapy Anabel Chew, MACHINE FEATHEREDGER AND REDUCER [address] [phone] (Wo rk) 11/17/2022 Appointment Speech Therapy Anabel Chew, MACHINE FEATHEREDGER AND REDUCER [address] [phone] (Wo rk) 12/01/2022 Office Visit Pain & [place] [address] [place], [place] [address] (Wo rk) 12/23/2022 Office Visit Neurology Colby Yeung MD [address] [place] [address] (Wo rk) documented as of this encounter Visit Diagnoses Not on filedocumented in this encounter Additional Health Concerns Assessment Noted Time PHQ-9 Depression Total Score: 16 03/25/2022 7:29 AM CD T documented as of this encounter Care Teams Professional Application Designer Relationship Specialty Start Date End Date Aydee Burton, PCP - General Nurse Practitioner - 05/17/21 PER DIEM NURSE COLLECTION ADMINISTRATOR Family [address] [place], [place] [phone] Aydee Burton, Assigned PCP 04/28/21 PER DIEM NURSE COLLECTION ADMINISTRATOR [address] [place], [place] [phone] Louisa Hood, Assigned Neuroscience 07/11/21 PER DIEM NURSE COLLECTION ADMINISTRATOR Provider [address] [place] [address] Se Levy, Lead Launderer Hand 08/05/21 05/12/22 Clari Francois Pharmacist Pharmacist 08/06/21 06/07/22 [facility] [address] [place] [address] [place], Assigned Sleep 08/01/21 Angel Turcios, Provider [address] [place] [address] Lesly Celaya MD Assigned Surgical 09/05/21 [address] [place] [address] Tawana Patel MA [facility] 09/30/21 Worker Ramses Mcpherson Assigned OBGYN 11/07/21 MD Onesimo Provider [address] [place] [address] Obdulio Barrear MD Critical Care 01/24/22 420 [facility] [address] [place], [place] [phone] Obdulio Barrera, Assigned Pulmonology 02/06/22 MD Provider 420 [facility] 276 [place], [place] [address] Lesvia Stanley, GHADA Cardiac Rehabilitation 03/03/22 03/03/23 [facility] Therapist [address] [place] [place] [address] Marilia Deluna, PhD Assigned Behavioral 02/20/22 [address] [facility] [place] [address] Niyah Decker, [facility] Pharmacist Pharmacist 03/07/22 420 [facility] 812 [place], [place] [address] Clari Poole, Pharmacist Pharmacist 03/07/22 06/15/22 [facility] [address] [facility] [address] [place] [phone] Lesvia Stanley, GHADA Cardiac Rehabilitation 03/17/22 03/17/23 [facility] Therapist [address] [address]96[address] Clari Ruiz Assigned MT 04/09/22 05/27/22 Jocelyn [facility] Pharmacist [address] [place], [place] [phone] Mago Swift, [facility] Lead Launderer Hand Cooperage Shop Supervisor - 08/05/21 Clinical documented as of this encounter
--- OUTSIDE RECORDS SUMMARY | 2022-10-21 08:52 | XMS_ITS | Encounter Summary ---
:1980 Author Organization [place] Address [address] [place] [address] Care Team Providers Name Role Phone Aydee Burton BIOCHEMISTRY PROFESSOR ANIMAL HUSBANDRY WORKER Primary Care Provider Aydee Burton BIOCHEMISTRY PROFESSOR ANIMAL HUSBANDRY WORKER Unavailable [phone] Louisa Hood BIOCHEMISTRY PROFESSOR ANIMAL HUSBANDRY WORKER Unavailable [phone] Se Levy [facility] Unavailable Unavailable Clari Ruiz [facility] Unavailable [phone] Angel Hannah MD Unavailable Lesly Celaya MD Unavailable Tawana Patel MA Unavailable Unavailable Ramses Mcpherson MD Unavailable [phone] Obdulio Barrera MD Unavailable [phone] Obdulio Barrera MD Unavailable [phone] Lesvia Stanley Unavailable Marilia Deluna PhD Unavailable Niyah Decker [facility] Unavailable Clari Poole [facility] Unavailable Lesvia Stanley Unavailable JosephClari jay [facility] Unavailable Niyah Warner RN Unavailable MandDelia virgen [facility] Unavailable [phone] Mandt, [place] [facility] Unavailable [phone] SchweiNiyah gleason [facility] Unavailable Mago Swift [facility] Unavailable Schweivictorino Niyah Caro [facility] Unavailable EvertonLeela davis [facility] Unavailable SchwNiyah gleason [facility] Unavailable Marvin Miranda MD Unavailable Marvin Miranda MD Unavailable JosephClari [facility] Unavailable Reason for Visit Reason Onset Date Comments Refill Request 05/12/2022 omeprazole (PRILOSEC ) [address] capsule Encounter Details Date Type Department Care Team Description 05/12/2022 [facility] Aydee Burton, Refill Request [facility] ELADIO ANIMAL HUSBANDRY WORKER (omeprazole (PRILOSEC) [address] [place] [address] capsule ) [place] [address] [place], [place] [phone] (Wo rk) [address] [phone] Social History Tobacco Use Types Packs/Day Years [...] How often do you attend tenriism or restoration services? 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 documented as of this encounter Miscellaneous Notes Telephone Encounter - Ciara Montejo RN - 05/13/2022 3:35 PM CDT Refill approved per [facility] refill protocol. Ciara Mg RN [facility] Triage documented in this encounter Plan of Treatment Upcoming Encounters Date Type Specialty Care Team Description 10/21/2022 Office Visit Pulmonology Obdulio Barrera MD [address] [place] [address] (Wo rk) 10/25/2022 PRE VISIT ENT Charo Burton MD Previsit [address] [place], [place] [address] (Wo rk) 10/25/2022 Office Visit ENT Charo Burton MD [address] [place] [phone] (Wo rk) 10/25/2022 Office Visit ENT Provider, Ent Dysphonia Furniture Detailer 10/25/2022 Virtual Visit Pain & Palliative [place] [address] [place], [place] [address] 10/28/2022 Appointment Speech Therapy Anabel Chew, CLAY MOLDER [address] 6[address] (Wo rk) 11/17/2022 Appointment Speech Therapy Anabel Chew, CLAY MOLDER [address] [phone] (Wo rk) 12/01/2022 Office Visit Pain & [place] [address] [place], [place] [address] (Wo rk) 12/23/2022 Office Visit Neurology Colby Yeung MD [address] [place] [address] (Wo rk) documented as of this encounter Visit Diagnoses Diagnosis Chronic cough Cough documented in this encounter Additional Health Concerns Assessment Noted Time PHQ-9 Depression Total Score: 16 03/25/2022 7:29 AM CD T documented as of this encounter Care Teams Corrections Sergeant Relationship Specialty Start Date End Date Aydee Burton PCP - General Nurse Practitioner - 05/17/21 ELADIO Mendez ANIMAL HUSBANDRY WORKER Family [address] [place] [phone] Aydee Burton Assigned PCP 04/28/21 ELADIO Mendez ANIMAL HUSBANDRY WORKER [address] [place] [address] Louisa Hood Assigned Neuroscience 07/11/21 ELADIO Recinos ANIMAL HUSBANDRY WORKER Provider 500 [place] [address] Se Levy, Lead Pizza Driver 08/05/21 05/12/22 Clari Francois Pharmacist Pharmacist 08/06/21 06/07/22 [facility] [address] [place] [address] [place], Assigned Sleep 08/01/21 Angel Turcios, Provider [address] [place] [address] Lesly Celaya MD Assigned Surgical 09/05/21 [address] [place] [place] [address] Tawana Patel, [facility] 09/30/21 MA Worker Ramses Mcpherson Assigned OBGYN 11/07/21 MD Onesimo Provider [address] [place] [address] Obdulio Barrera MD Critical Care 01/24/22 MD Leo [address] [address] Obdulio Barrera Assigned Pulmonology 02/06/22 MD Leo Provider 420 [facility] 276 [place] [address] Lesvia Stanley, Cardiac Rehabilitation 03/03/22 03/03/23 EP Therapist [place] [address] [place] [address] Marilia Deluna, Assigned Behavioral 02/20/22 [facility] Health Provider [address] [place] [address] Niyah Decker, [facility] Pharmacist Pharmacist 03/07/22 420 [facility] 812 [place] [address] Clari Poole, Pharmacist Pharmacist 03/07/22 06/15/22 [facility] [address] [facility] [place] [address] Lesvia Stanley, Cardiac Rehabilitation 03/17/22 03/17/23 EP Therapist [facility] [address] [place] [address] Clari Ruiz Assigned MTM 04/09/22 05/27/22 Jocelyn [facility] Pharmacist [address] [place] [address] Niyah Warner, Lead Pizza Driver Primary Care - CC 06/27/22 RN Delia Avila Pharmacist Pharmacist 06/07/22 Mel [facility] 909 [place], [place] [phone] Delia Avila Assigned MTM 06/11/22 06/24/22 Mel [facility] Pharmacist [address] [place] [address] Niyah Decker, [facility] Assigned MTM 05/28/22 06/10/22 420 [facility] Pharmacist 812 [place] [address] Mago Swift, Lead Pizza Driver Cook Helper Fruit - 08/05/21 [facility] Clinical Niyah Decker [facility] Assigned MTM 06/25/22 07/29/22 420 [facility] Pharmacist 812 [place] [address] Leela Jarvis [facility] Pharmacist 07/26/22 05/15/23 [address] [facility] [address] [place] [id number] Niyah Decker [facility] Assigned MTM 08/10/22 09/16/22 420 [facility] Pharmacist [address] [place] [address] Marvin Miranda MD Gastroenterology 09/21/[address] [place] [address] [address] [place], [place] [phone] Marvin Miranda, Assigned 10/01/22 Gastroenterology 516 [facility] Provider [address] [place], [place] [address] Clari Ruiz Assigned MT 09/17/22 Jocelyn [facility] Pharmacist [address] [place] [address] documented as of this encounter
--- OUTSIDE RECORDS SUMMARY | 2022-10-21 08:52 | XMS_ITS | Encounter Summary ---
:1980 Author Organization [place] Address [address] [place] [address] Care Team Providers Name Role Phone Aydee Burton WAREHOUSE INSULATION WORKER FIXING MACHINE OPERATOR Primary Care Provider Aydee Burton WAREHOUSE INSULATION WORKER FIXING MACHINE OPERATOR Unavailable [phone] Louisa Hood WAREHOUSE INSULATION WORKER FIXING MACHINE OPERATOR Unavailable [phone] Clari Ruiz [facility] Unavailable Angel Hannah MD Unavailable Lesly Celaya MD Unavailable Tawana Patel MA Unavailable Unavailable Ramses Mcpherson MD Unavailable [phone] Obdulio Barrera MD Unavailable [phone] Obdulio Barrera MD Unavailable [phone] Lesvia Stanley Unavailable Marilia Deluna PhD Unavailable Niyah Decker [facility] Unavailable WedClari bhakat [facility] Unavailable KandiLesvia moon Esther Unavailable Clari Ruiz Jocelyn [facility] Unavailable IsraNiyah carter RN Unavailable Mago Swift [facility] Unavailable Encounter Details Date Type Department [...] How often do you attend orthodox or congregation services? 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 documented as of this encounter Plan of Treatment Upcoming Encounters Date Type Specialty Care Team Description 10/21/2022 Office Visit Pulmonology Obdulio Barrera MD [address] [place] [phone] (Wo rk) 10/25/2022 PRE VISIT ENT Charo Burton MD Previsit [address] [place] [address] [phone] (Wo rk) 10/25/2022 Office Visit ENT Charo Burton MD [address] [place] [phone] (Wo rk) 10/25/2022 Office Visit ENT Provider, Ent Dysphonia Pals Nurse 10/25/2022 Virtual Visit Pain & Palliative Care [place] [address] [place], [place] [address] 10/28/2022 Appointment Speech Therapy Anabel Chew, HAZARDOUS MATERIALS HANDLER [address] [phone] (Wo rk) 11/17/2022 Appointment Speech Therapy Anabel Chew, HAZARDOUS MATERIALS HANDLER [address] [phone] (Wo rk) 12/01/2022 Office Visit Pain & [place] [address] [place], [place] [address] (Wo rk) 12/23/2022 Office Visit Neurology Colby Yeung MD [address] [phone] (Wo rk) documented as of this encounter Visit Diagnoses Not on filedocumented in this encounter Additional Health Concerns Assessment Noted Time PHQ-9 Depression Total Score: 20 05/19/2022 9:02 AM CD T documented as of this encounter Care Teams Senior Data Mining Analyst Relationship Specialty Start Date End Date Aydee Burton, PCP - General Nurse Practitioner - 05/17/21 WAREHOUSE INSULATION WORKER FIXING MACHINE OPERATOR Family [address] [place], [place] [phone] Aydee Burton, Assigned PCP 04/28/21 WAREHOUSE INSULATION WORKER FIXING MACHINE OPERATOR [address] [place], [place] [address] Louisa Hood, Assigned Neuroscience 07/11/21 WAREHOUSE INSULATION WORKER FIXING MACHINE OPERATOR Provider [address] [place], [place] [address] Clari Ruiz Pharmacist Pharmacist 08/06/21 06/07/22 [facility] [address] [place], [place] [address] [place], Assigned Sleep 08/01/21 Angel Turcios, Provider [address] [place], [place] [address] Lesly Celaya MD Assigned Surgical 09/05/21 [address] Provider [place], [place] [phone] Tawana Patel MA [facility] 09/30/21 Worker Ramses Mcpherson Assigned OBGYN 11/07/21 MD Onesimo Provider [address] [place] [address] Obdulio Barrera MD Critical Care 01/24/22 420 [facility] 276 [place], [place] [address] Obdulio Barrera, Assigned Pulmonology 02/06/22 MD Provider 420 [facility] 276 [place] [address] Lesvia Stanley, GHADA Cardiac Rehabilitation 03/03/22 03/03/23 [facility] Therapist [address] [place], [place] [address] Marilia Deluna, PhD Assigned Behavioral 02/20/22 [address] [facility] [place] [place] [address] Niyah Decker, [facility] Pharmacist Pharmacist 03/07/22 420 [facility] 812 [place], [place] [address] Clari Poole, Pharmacist Pharmacist 03/07/22 06/15/22 [facility] [address] [facility] [address] [place] [phone] Lesvia Stanley, GHADA Cardiac Rehabilitation 03/17/22 03/17/23 [facility] Therapist [address] [place], [place] [address] Clari Ruiz Assigned [facility] 04/09/22 05/27/22 Jocelyn [facility] Pharmacist [address] [place], [place] [address] Niyah Warner, Lead Electronic Imaging System Operator Primary Care - CC 06/27/22 RN Mago Swift, [facility] Lead Electronic Imaging System Operator Security System Analyst - 08/05/21 Clinical documented as of this encounter
--- OUTSIDE RECORDS SUMMARY | 2022-10-21 08:52 | XMS_ITS | Encounter Summary ---
:1980 Author Organization [place] Address [address] [place] [address] Care Team Providers Name Role Phone Aydee Burton WHARF TENDER HEAD MACHINE III COREMAKER Primary Care Provider [phone] Aydee Burton WHARF TENDER HEAD MACHINE III COREMAKER Unavailable [phone] Louisa Hood WHARF TENDER HEAD MACHINE III COREMAKER Unavailable [phone] Se Levy [facility] Unavailable Unavailable Clari Ruiz [facility] Unavailable [phone] Angel Hannah MD Unavailable Lesly Celaya MD Unavailable Tawana Patel MA Unavailable Unavailable Ramses Mcpherson MD Unavailable [phone] Obdulio Barrera MD Unavailable [phone] Obdulio Barrera MD Unavailable [phone] Lesvia Stanley Unavailable Marilia Deluna PhD Unavailable Niyah Decker [facility] Unavailable Clari Poole [facility] Unavailable JadenLesvia Esther Unavailable JosephClari jay [facility] Unavailable [phone] Mago Swift [facility] Unavailable Reason for Visit Rehab Therapy Cardiac Therapy (Routine: Next available opening) - Authorized Specialty Diagnoses / Procedures Referred By Contact Refer red To Contact CARDIAC REHAB Diagnoses Asthma SOB (shortness of breath) [address] [place] [address] Phone: Referral ID Status Reason Start Date Expiration Date Visits V isits Requested Authorized [id number] Authorized 11/13/2021 11/12/2022 365 365 Encounter Details Date Type Department Care Team Description 05/03/[address] [facility] HollyEzequiel MD 420 [facility] 276 [place] [address] Cardiac and Pulmonary 1, Rh Pulmonary Rehab Rehabilitation [address] [place] [address] Social History Tobacco Use Types [...] often do you attend oriental orthodox or islam services? 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 COVID-19 Exposure Response Date Recorded In the [...] Take 1 capsule (400 120 capsule 0 06/ 05/19/2022 400 MG mg) by mouth 4 [...] Office Visit Pulmonology Obdulio Barrera MD [address] [place] [address] [phone] (Wo rk) 10/25/2022 PRE VISIT Charo Carter MD Previsit [address] [place] [address] (Wo rk) 10/25/2022 Office Visit Charo Carter MD [address] [place] [address] [phone] (Estefanía rk) 10/25/2022 Office Visit ENT Provider, Jeannette Ent Dysphonia Chief Environmental Commitment Officer 10/25/2022 Virtual Visit Pain & Palliative [place] [address] [place], [place] [address] 10/28/2022 Appointment Speech Therapy Anabel Chew, CONSUMER AFFAIRS DIRECTOR [address] [phone] (Wo rk) 11/17/2022 Appointment Speech Therapy Anabel Chew, CONSUMER AFFAIRS DIRECTOR [address] [phone] (Wo rk) 12/01/2022 Office Visit Pain & [place] [address] [place], [place] [address] (Wo rk) 12/23/2022 Office Visit Neurology Colby Yeung MD [address] [place], [place] [address] (Wo rk) documented as of this encounter Visit Diagnoses Not on filedocumented in this encounter Additional Health Concerns Assessment Noted Time PHQ-9 Depression Total Score: 16 03/25/2022 7:29 AM CD T documented as of this encounter Care Teams Transportation Lead Relationship Specialty Start Date End Date Aydee Burton, PCP - General Nurse Practitioner - 05/17/21 WHARF TENDER HEAD MACHINE III COREMAKER Family [address] [place] [phone] Aydee Burton, Assigned PCP 04/28/21 WHARF TENDER HEAD MACHINE III COREMAKER [address] [place] [address] [phone] Louisa Hood, Assigned Neuroscience 07/11/21 WHARF TENDER HEAD MACHINE III COREMAKER Provider [address] [place] [phone] Se Levy, Lead Hedge Fund Manager 08/05/21 05/12/22 Clari Francois Pharmacist Pharmacist 08/06/21 06/07/22 JORDAN Banks [address] [place] [address] [place], Assigned Sleep 08/01/21 Angel Turcios, Provider [address] [place] [address] Lesly Celaya MD Assigned Surgical 09/05/21 [address] [facility] [address] Tawana Patel Critical access hospital 09/30/21 Worker Ramses Mcpherson Assigned OBGYN 11/07/21 MD Onesimo Provider [address] [place] [address] Obdulio Barrera MD Critical Care 01/24/[address] [place] [address] 276 [place] [address] Obdulio Barrera, Assigned Pulmonology 02/06/[address] [place] [address] 276 [place] [address] Lesvia Stanley EP Cardiac Rehabilitation 03/03/22 03/03/23 [facility] Therapist [address] [place] [place] [id number] Marilia Deluna, PhD Assigned Behavioral 02/20/22 [address] [facility] Provider [place], [place] [phone] Niyah Decker, [facility] Pharmacist Pharmacist 03/07/[address] [facility] [address] [place], [place] [address] Clari Poole, Pharmacist Pharmacist 03/07/22 06/15/22 [facility] 6[address] [facility] [address] [place] [phone] Lesvia Stanley EP Cardiac Rehabilitation 03/17/22 03/17/23 [facility] Therapist [address] [address] Clari Ruiz Assigned MTM 04/09/22 05/27/22 Jocelyn [facility] Pharmacist [address] [facility] [address] [place], [place] [phone] Mago Swift, [facility] Lead Hedge Fund Manager Jewelry Engraver - 08/05/21 Clinical documented as of this encounter
--- OUTSIDE RECORDS SUMMARY | 2022-10-21 08:52 | XMS_ITS | Encounter Summary ---
:1980 Author Organization [facility] Address [address] [place] [address] Care Team Providers Name Role Phone Aydee Burton METER/RELAY CRAFTSMAN BOOKIE Primary Care Provider [phone] Aydee Burton METER/RELAY CRAFTSMAN BOOKIE Unavailable [phone] Louisa Hood METER/RELAY CRAFTSMAN BOOKIE Unavailable [phone] Clari Ruiz [facility] Unavailable [phone] Angel Hannah MD Unavailable Lesly Celaya MD Unavailable Tawana Patel MA Unavailable Unavailable Ramses Mcpherson MD Unavailable [phone] Obdulio Barrera MD Unavailable [phone] Obdulio Barrera MD Unavailable [phone] Lesvia Stanley Unavailable Marilia Deluna PhD Unavailable Niyah Decker [facility] Unavailable Clari Poole [facility] Unavailable KandiLesvia moon Esther EP Unavailable JosephDuaneClari Jocelyn [facility] Unavailable IsraNiyah carter RN Unavailable Mago Swift [facility] Unavailable Reason for Visit Reason Comments Fatigue Loss of Consciousness Encounter Details Date Type Department Care Team Description 05/25/[address] [facility] Vasu Spencer MD Syncope, unspecified syncope type; [facility] Emergency Dep EMERGENCY PHYSICIANS Excessive sleepiness; [address] Shortness of breath; [place], [place] [address] Chest pain, unspecified type; [id number] [address] Fatigue, unspecified type; [phone] [place] [address] Facial pain [phone] (Wo rk) Social History Tobacco Use Types [...] How often do you attend faith or bahai services? 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 Rate 102 bpm. OK interval 178 ms. QRS duration 86 ms. QT/QTc 334/435 ms. P-R-T axes 41 51 48. Imaging: XR Chest 2 Views Preliminary Result IMPRESSION: There are no acute infiltrates. The cardiac silhouette is not enlarged. Pulmonary vasculature is unremarkable. Leadless window and door installer 3 to 7 Days (Results Pending) Report [...] Result Encounter Note - Aydee Burton APRN BOOKIE - 05/25/2022 2:28 PM CDT Dear Marta, [...] due on 06/11/2022 Please call us at [phone] (or use Slanissue) to address the above recommendations if needed. Thank you for choosing [facility]. It was an honor and a privilege to participate in your care. Healthy regards, TARA Spivey [facility] documented in this encounter Plan of Treatment Upcoming Encounters Date Type Specialty Care Team Description 10/21/2022 Office Visit Pulmonology Obdulio Barrera MD [address] [place] [phone] (Wo rk) 10/25/2022 PRE VISIT ENT Charo Burton MD Previsit [address] [place] [address] (Wo rk) 10/25/2022 Office Visit ENT Charo Burton MD [address] [place], [place] [phone] (Wo rk) 10/25/2022 Office Visit ENT Provider, Ent Dysphonia Day Camp Counselor 10/25/2022 Virtual Visit Pain & [place] [address] [place], [place] [address] 10/28/2022 Appointment Speech Therapy Anabel Chew, GIS SPECIALIST [address] [phone] (Wo rk) 11/17/2022 Appointment Speech Therapy Anabel Chew, GIS SPECIALIST [address] [phone] (Wo rk) 12/01/2022 Office Visit Pain & [place] [address] [place], [place] [address] (Wo rk) 12/23/2022 Office Visit Neurology Colby Yeung MD [address] [place] [address] (Wo rk) Scheduled Orders Name Type Priority Associated Diagnoses Order S chedule EKG 12-lead, tracing EKG STAT One Yeyo webster for 1 Occurrences only starting 2021 until 05/25/2022 documented as of this encounter Procedures Procedure Name Priority Date/Time Associated Comments Diagnosis LEADLESS SEX THERAPIST STAT 05/25/2022 1:24 APPLICATION AND PM CDT [...] section. documented in this encounter Results LEADLESS SEX THERAPIST APPLICATION AND INTERPRETATION 3 TO 7 DAY [...] intake, and treatment affect the concentration of 10-zbpxlwm-Vofcrmr D. Values may decrease during winter months [...] by LCMSMS test VITD23. Aydee Burton APRN BOOKIE LAB - BLOOD ORDERABLES Performing Organization Address City/State/ZIP Code Phon e Number SPECIALTY CORE/PROT/ENDO Specialty [place], [place] [address] Core/Prot/Endo [address] [facility] [address] Building, Room 3-580 Iron and [...] 11:29 AM CDT Unknown Aydee Burton APRN BOOKIE LAB - BLOOD ORDERABLES Performing Organization Address City/State/ZIP Code Phon [place] [address] Care Lab [address] Lab (1st floor, no room number) Ferritin (05/25/2022 11:23 AM CDT) P athologist Signature Ferritin 15 12 - 150 05/27/2022 [facility] ng/mL 2:59 PM CDT Specimen Anatomical Collection Method / Collection Time Recei edil Time (Source) Location / Volume Laterality Blood STRUCTURE OF RIGHT Venipuncture / 05/25/2022 11:23 UPPER LIMB / Unknown AM CDT 11:29 AM CDT Unknown Aydee Burton APRN BOOKIE LAB - BLOOD ORDERABLES Performing Organization Address City/State/ZIP Code [place] [address] Care Lab [address] Lab (1st floor, no room number) [...] 11:29 AM CDT Unknown Aydee Burton APRN BOOKIE LAB - BLOOD ORDERABLES Performing Organization Address City/[facility]/ZIP Code [place] [address] Care Lab [address] Lab (1st floor, no room number) [...] 11:29 AM CDT Unknown Aydee Burton APRN BOOKIE LAB - BLOOD ORDERABLES Performing Organization Address City/State/ZIP Code [place] [address] Care Lab [address] Lab (1st floor, no room number) [...] City/State/ZIP Code [place] [address] Care Lab [address] Lab (1st floor, no room number) [...] City/State/ZIP Code Phon [place] [phone] Care Lab [address] [facility] Lab (1st floor, no room number) D [...] LAB - BLOOD ORDERABLES Performing Organization Address City/[facility]/ZIP Code [place] [address] Care Lab [address] Lab (1st floor, no room number) Troponin I (05/25/2022 11:23 AM CDT) P athologist Signature Troponin I High <3 <54 ng/L 05/25/2022 LABORATORY Sensitivity 11:58 AM CDT Comment: This Troponin-I result was obta ined using a Siemens Dimension [place] High Sensitivity Troponin-I assay (TNIH). Eff ective 10/05/21, nine labs/sites in the [facility] switched from a Siemens [place] Contemporary Troponin I assay (CTNI) to a Siemens [place] High-Sensitivity Troponi n I assay (TNIH). Specimen Anatomical Collection Method / Collection Time Recei edil Time (Source) Location / Volume Laterality Blood STRUCTURE OF RIGHT Venipuncture / 05/25/2022 11:23 UPPER LIMB / Unknown AM CDT 11:29 AM CDT Unknown Chalo Spencer MD LAB - BLOOD ORDERABLES Performing Organization Address City/[facility]/ZIP Code [place] [address] Care Lab [address] Lab (1st floor, no room number) [...] and gender (Yulia et al., NEJM, DOI: 10.1056/[id number]) Specimen Anatomical Collection Method / Collection Time Recei edil Time (Source) Location / Volume Laterality Blood STRUCTURE OF RIGHT Venipuncture / 05/25/2022 11:23 UPPER LIMB / Unknown AM CDT 11:29 AM CDT Unknown Chalo Spencer MD LAB - BLOOD ORDERABLES Performing Organization Address City/State/ZIP Code [place] [address] Care [address] Lab (1st floor, no room number) EKG 12 lead (05/25/2022 10:25 AM CDT) Component Value Ref Range Test Analysis Performed Pathologis t Method Time At Signature Systolic Blood mmHg RADIOLOGY Pressure RESULTS Diastolic Blood mmHg RADIOLOGY Pressure RESULTS Ventricular Rate 102 BPM RADIOLOGY RESULTS Atrial Rate 102 BPM RADIOLOGY RESULTS OK Interval 178 ms RADIOLOGY RESULTS QRS Duration 86 ms RADIOLOGY RESULTS QT 334 ms RADIOLOGY RESULTS QTc 435 ms RADIOLOGY RESULTS P [place] 41 degrees RADIOLOGY RESULTS R AXIS 51 degrees RADIOLOGY RESULTS T [place] 48 degrees RADIOLOGY RESULTS Interpretation Sinus tachycardia RADIOLO GY ECG Otherwise normal ECG RESULTS When compared with ECG of 21-JAN-2022 09:41, No significant change was found Confirmed by - EMERGENCY RODNEY Murray PHYSICIAN ([id number]), book or script editor FRAN HORTON ([id number]) on 05/25/2022 12:46:20 PM Specimen Anatomical Collection [...] type Fatigue, unspecified type Facial pain Headache documented in this encounter [...] 1142 (New Bag - Provider: Minnie Richard, AMINAH)1423 (Stopped - Provider: Minnie Richard, RN) Intravenous, [...] documented as of this encounter Care Teams Group Home Counselor Relationship Specialty Start Date End Date Aydee Burton, PCP - General Nurse Practitioner - 05/17/21 METER/RELAY CRAFTSMAN BOOKIE Family [address] [place] [address] [phone] Aydee Burton, Assigned PCP 04/28/21 METER/RELAY CRAFTSMAN BOOKIE [address] [place] [address] [phone] Louisa Hood, Assigned Neuroscience 07/11/21 METER/RELAY CRAFTSMAN BOOKIE Provider [address] [place], [place] [phone] Clari Ruiz Pharmacist Pharmacist 08/06/21 06/07/22 [facility] [address] [place], [place] [phone] [place], Assigned Sleep 08/01/21 Angel Turcios, Provider [address] [place] [address] Lesly Celaya MD Assigned Surgical 09/05/21 [address] Provider [place], [place] [address] Tawana Patel MA [facility] 09/30/21 Worker Ramses Mcpherson Assigned OBGYN 11/07/21 MD Teagan Provider [address] [place], [place] [phone] Obdulio Barrera MD Critical Care 01/24/22 420 [facility] [address] [place] [address] Obdulio Barrera, Assigned Pulmonology 02/06/22 MD Provider 420 [facility] 276 [place] [address] Lesvia Stanley, GHADA Cardiac Rehabilitation 03/03/22 03/03/23 [facility] Therapist [address] [place] [address] Marilia Deluna, PhD Assigned Behavioral 02/20/[address] [facility] [place] [address] Niyah Decker, [facility] Pharmacist Pharmacist 03/07/22 420 [facility] [address] [place], [place] [address] Clari Poole, Pharmacist Pharmacist 03/07/22 06/15/22 [facility] [address] [facility] [place] [address] Lesvia Stanley, GHADA Cardiac Rehabilitation 03/17/22 03/17/23 [facility] Therapist [address] [place], [place] [address] Clari Ruiz Assigned MTM 04/09/22 05/27/22 Jocelyn [facility] Pharmacist [address] [place], [place] [address] Niyah Warner, Lead Informatics Spec Primary Care - CC 06/27/22 RN Mago Swift, [facility] Lead Informatics Spec Senior Information Security Engineer - 08/05/21 Clinical documented as of this encounter
--- OUTSIDE RECORDS SUMMARY | 2022-10-21 08:52 | XMS_ITS | Encounter Summary ---
:1980 Author Organization [place] Address [address] [place] [address] Care Team Providers Name Role Phone Aydee Burton ORCHESTRATOR ELECTRIC KNIFE OPERATOR Primary Care Provider Aydee Burton ORCHESTRATOR ELECTRIC KNIFE OPERATOR Unavailable [phone] Louisa Hood ORCHESTRATOR ELECTRIC KNIFE OPERATOR Unavailable [phone] Se Levy [facility] Unavailable Unavailable Clari Ruiz [facility] Unavailable [phone] Angel Hannah MD Unavailable Lesly Celaya MD Unavailable Tawana Patel MA Unavailable Unavailable Ramses Mcpherson MD Unavailable [phone] Obdulio Barrera MD Unavailable [phone] Obdulio Barrera MD Unavailable [phone] Lesvia Stanley Unavailable Marilia Deluna PhD Unavailable Niyah Decker [facility] Unavailable Clari Poole [facility] Unavailable JadenLesvia Esther Unavailable Clari Ruiz [facility] Unavailable [phone] Mago Swift [facility] Unavailable Reason for Visit Rehab Therapy Cardiac Therapy (Routine: Next available opening) - Authorized Specialty Diagnoses / Procedures Referred By Contact Refer red To Contact CARDIAC REHAB Diagnoses Asthma SOB (shortness of breath) [address] [address] Phone: Referral ID Status Reason Start Date Expiration Date Visits V isits Requested Authorized [id number] Authorized 11/13/2021 11/12/2022 365 365 Encounter Details Date Type Department Care Team Description 04/28/2022 Hospital Encounter [facility] HollyEzequiel MD 420 [facility] [address] [place] [address] Cardiac and Pulmonary 1, Rh Pulmonary Rehab Rehabilitation [address] [place] [address] Social History Tobacco Use Types [...] How often do you attend gnosticist or holiness services? 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 COVID-19 Exposure Response Date Recorded [...] Visit Pulmonology Obdulio Barrera MD [address] [address] (Wo rk) 10/25/2022 PRE VISIT Charo Carter MD Previsit [address] [place] [address] (Wo rk) 10/25/2022 Office Visit Charo Carter MD [address] [place] [address] (Wo rk) 10/25/2022 Office Visit ENT Provider, Jeannette Ent Dysphonia Continuous Improvement Manager 10/25/2022 Virtual Visit Pain & Palliative [place] [address] [place], [place] [address] 10/28/2022 Appointment Speech Therapy Anabel Chew, INSIDE WIRER [address] [address]64525 (Wo rk) 11/17/2022 Appointment Speech Therapy Anabel Chew, INSIDE WIRER [address] [address] (Wo rk) 12/01/2022 Office Visit Pain & [place] [address] [place], [place] [address] (Wo rk) 12/23/2022 Office Visit Neurology Colby Yeung MD [address] [place] [address]327[address] (Wo rk) documented as of this encounter Visit Diagnoses Not on filedocumented in this encounter Additional Health Concerns Assessment Noted Time PHQ-9 Depression Total Score: 16 03/25/2022 7:29 AM CD T documented as of this encounter Care Teams Stage Manager Relationship Specialty Start Date End Date Aydee Burton, PCP - General Nurse Practitioner - 05/17/21 ORCHESTRATOR ELECTRIC KNIFE OPERATOR Family [address] [place], [place] [address] Aydee Burton, Assigned PCP 04/28/21 ORCHESTRATOR ELECTRIC KNIFE OPERATOR [address] [place], [place] [phone] Louisa Hood, Assigned Neuroscience 07/11/21 ORCHESTRATOR ELECTRIC KNIFE OPERATOR Provider [address] [place], [place] [address] Se Levy, Lead Conveyor Line Battery Charger 08/05/21 05/12/22 Clari Francois Pharmacist Pharmacist 08/06/21 06/07/22 Jocelyn, [facility] [address] [place], [place] [phone] [place], Assigned Sleep 08/01/21 Angel Turcios, Provider [address] [place] [address] Lesly Celaya MD Assigned Surgical 09/05/21 [address] [facility] Provider [place], [place] [phone] Tawana Patel [facility] 09/30/21 Worker Ramses Mcpherson Assigned OBGYN 11/07/21 MD Onesimo Provider [address] [place] [address] Obdulio Barrera MD Critical Care 01/24/[address] [place] [address] Obdulio Barrera, Assigned Pulmonology 02/06/[address] [place] [address] Lesvia Stanley EP Cardiac Rehabilitation 03/03/22 03/03/23 [facility] Therapist [address] [address] Marilia Deluna, PhD Assigned Behavioral 02/20/22 [address] [facility] Provider [place], [place] [phone] Niyah Decker, [facility] Pharmacist Pharmacist 03/07/22 [address] [facility] [address] [place] [address] Clari Poole, Pharmacist Pharmacist 03/07/22 06/15/22 [facility] [address] [facility] [place] [address] Lesvia Stanley EP Cardiac Rehabilitation 03/17/22 03/17/23 [facility] Therapist [address] [address] Clari Ruiz Assigned MT 04/09/22 05/27/22 Jocelyn [facility] Pharmacist [address] [place], [place] [phone] Mago Swift, [facility] Lead Conveyor Line Battery Charger Automation Tech - 08/05/21 Clinical documented as of this encounter
--- OUTSIDE RECORDS SUMMARY | 2022-10-21 08:52 | XMS_ITS | Encounter Summary ---
:1980 Author Organization [place] Address [address] [place] [address] Care Team Providers Name Role Phone Aydee Burton WELDER APPRENTICE ARC ROOFING APPLICATOR Primary Care Provider Aydee Burton WELDER APPRENTICE ARC ROOFING APPLICATOR Unavailable [phone] Louisa Hood WELDER APPRENTICE ARC ROOFING APPLICATOR Unavailable [phone] Se Levy [facility] Unavailable Unavailable Clari Ruiz [facility] Unavailable [phone] Angel Hannah MD Unavailable Lesly Celaya MD Unavailable Tawana Patel MA Unavailable Unavailable Ramses Mcpherson MD Unavailable [phone] Obdulio Barrera MD Unavailable Obdulio Barrera MD Unavailable Lesvia Stanley Unavailable Marilia Deluna PhD Unavailable Niyah Decker [facility] Unavailable Clari Poole [facility] Unavailable JadenLesvia Unavailable Clari Ruiz [facility] Unavailable Mago Swift [facility] Unavailable Encounter Details Date Type [...] How often do you attend religion or muslim services? 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 documented as of this encounter Plan of Treatment Upcoming Encounters Date Type Specialty Care Team Description 10/21/2022 Office Visit Pulmonology Obdulio Barrera MD [address] [phone] (Wo rk) 10/25/2022 PRE VISIT ENT Charo Burton MD Previsit [address] [place] [address] (Wo rk) 10/25/2022 Office Visit ENT Charo Burton MD [address] [place] [address] (Wo rk) 10/25/2022 Office Visit ENT Provider, Ent Dysphonia Fraud Representative 10/25/2022 Virtual Visit Pain & Palliative Care [place] [address] [place], [place] [address] 10/28/2022 Appointment Speech Therapy Anabel Chew, SAFE EXPERT [address] [phone] (Wo rk) 11/17/2022 Appointment Speech Therapy Anabel Chew, SAFE EXPERT [address] [phone] (Wo rk) 12/01/2022 Office Visit Pain & [place] [address] [place], [place] [address] (Wo rk) 12/23/2022 Office Visit Neurology Colby Yeung MD [address] [place] [address] (Wo rk) documented as of this encounter Visit Diagnoses Not on filedocumented in this encounter Additional Health Concerns Assessment Noted Time PHQ-9 Depression Total Score: 16 03/25/2022 7:29 AM CD T documented as of this encounter Care Teams Multifocal Button Inspector Relationship Specialty Start Date End Date Aydee Burton, PCP - General Nurse Practitioner - 05/17/21 WELDER APPRENTICE ARC ROOFING APPLICATOR Family [address] [place], [place] [address] Aydee Burton, Assigned PCP 04/28/21 WELDER APPRENTICE ARC ROOFING APPLICATOR [address] [place], [place] [phone] Louisa Hood, Assigned Neuroscience 07/11/21 WELDER APPRENTICE ARC ROOFING APPLICATOR Provider [address] [place] [address] Se Levy, Lead Police Captain Senior 08/05/21 05/12/22 Clari Francois Pharmacist Pharmacist 08/06/21 06/07/22 [facility] [address] [place] [address] [place], Assigned Sleep 08/01/21 Angel Turcios, Provider [address] [place] [address] Lesly Celaya MD Assigned Surgical 09/05/21 [address] [place] [address] Tawana Patel MA [facility] Health 09/30/21 Worker Ramses Mcpherson Assigned OBGYN 11/07/21 MD Onesimo Provider [address] [place] [address] Obdulio Barrera MD Critical Care 01/24/22 420 [facility] 276 [place], [place] [phone] Obdulio Barrera, Assigned Pulmonology 02/06/22 MD Provider 420 [facility] [address] [place], [place] [address] Lesvia Stanley, GHADA Cardiac Rehabilitation 03/03/22 03/03/23 [facility] Therapist [address] [place] [place] [address] Marilia Deluna, PhD Assigned Behavioral 02/20/22 [address] [facility] [place] [address] Niyah Decker, [facility] Pharmacist Pharmacist 03/07/22 420 [facility] [address] [place], [place] [address] Clari Poole, Pharmacist Pharmacist 03/07/22 06/15/22 [facility] [address] [facility] [address] [place] [phone] Lesvia Stanley, GHADA Cardiac Rehabilitation 03/17/22 03/17/23 [facility] Therapist [address] [address] Clari Ruiz Assigned MT 04/09/22 05/27/22 Jocelyn [facility] Pharmacist [address] [place], [place] [phone] Mago Swift, [facility] Lead Police Captain Senior Clinical Education Consultant - 08/05/21 Clinical documented as of this encounter
--- OUTSIDE RECORDS SUMMARY | 2022-10-21 08:52 | XMS_ITS | Encounter Summary ---
:1980 Author Organization [place] Address [address] [place] [address] Care Team Providers Name Role Phone Aydee Burton CHANNEL EXECUTIVE SKIDDER DRIVER Primary Care Provider Aydee Burton CHANNEL EXECUTIVE SKIDDER DRIVER Unavailable [phone] Louisa Hood CHANNEL EXECUTIVE SKIDDER DRIVER Unavailable [phone] Se Levy [facility] Unavailable Unavailable Clari Ruiz [facility] Unavailable [phone] Angel Hannah MD Unavailable Lesly Celaya MD Unavailable Tawana Patel MA Unavailable Unavailable Ramses Mcpherson MD Unavailable [phone] Obdulio Barrera MD Unavailable [phone] Obdulio Barrera MD Unavailable [phone] Lesvia Stanley Unavailable Marilia Deluna PhD Unavailable Niyah Decker [facility] Unavailable Clari Poole [facility] Unavailable JadenLesvia Esther Unavailable JosephClari jay [facility] Unavailable [phone] Mago Swift [facility] Unavailable Reason for Visit Rehab Therapy Cardiac Therapy (Routine: Next available opening) - Authorized Specialty Diagnoses / Procedures Referred By Contact Refer red To Contact CARDIAC REHAB Diagnoses Asthma SOB (shortness of breath) [address] [place] [address] Phone: Referral ID Status Reason Start Date Expiration Date Visits V isits Requested Authorized [id number] Authorized 11/13/2021 11/12/2022 365 365 Encounter Details Date Type Department Care Team Description 04/26/2022 Hospital Encounter [facility] HollyEzequiel MD 420 [facility] [address] [place] [address] Cardiac and Pulmonary 1, Rh Pulmonary Rehab Rehabilitation [address] [place] [address] Social History Tobacco Use Types [...] How often do you attend sabianist or yazidi services? 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 COVID-19 Exposure Response Date Recorded In the [...] Office Visit Pulmonology Obdulio Barrera MD [address] [address] (Wo rk) 10/25/2022 PRE VISIT ENT Charo Burton MD Previsit [address] [place] [address] (Wo rk) 10/25/2022 Office Visit Charo Carter MD [address] [place] [address] (Estefanía rk) 10/25/2022 Office Visit ENT Provider, Ent Dysphonia Marine Farmer 10/25/2022 Virtual Visit Pain & Palliative [place] [address] [place], [place] [address] 10/28/2022 Appointment Speech Therapy Anabel Chew, LUBE ATTENDANT [address] [id number] (Wo rk) 11/17/2022 Appointment Speech Therapy Anabel Chew, LUBE ATTENDANT [address] [id number] (Wo rk) 12/01/2022 Office Visit Pain & [place] [address] [place], [place] [address] (Wo rk) 12/23/2022 Office Visit Neurology Colby Yeung MD [address] [place] [phone] (Wo rk) documented as of this encounter Visit Diagnoses Not on filedocumented in this encounter Additional Health Concerns Assessment Noted Time PHQ-9 Depression Total Score: 16 03/25/2022 7:29 AM CD T documented as of this encounter Care Teams Isolation Washer Relationship Specialty Start Date End Date Aydee Burton, PCP - General Nurse Practitioner - 05/17/21 CHANNEL EXECUTIVE SKIDDER DRIVER Family [address] [place] [address] Aydee Burton, Assigned PCP 04/28/21 CHANNEL EXECUTIVE [address] [phone] Louisa Hood, Assigned Neuroscience 07/11/21 CHANNEL EXECUTIVE SKIDDER DRIVER Provider [address] [place] [address] [phone] Se Levy, Lead Speech Therapy Assistant 08/05/21 05/12/22 [facility] Clari Ruiz Pharmacist Pharmacist 08/06/21 06/07/22 Jocelyn [facility] [address] [place] [address] [place], Assigned Sleep 08/01/21 Angel Turcios, Provider [address] [place] [address] Lesly Celaya MD Assigned Surgical 09/05/21 [address] [facility] [place] [address] Tawana Patel MA [facility] 09/30/21 Worker Ramses Mcpherson Assigned OBGYN 11/07/21 MD Onesimo Provider [address] [place] [address] Obdulio Barrera MD Critical Care 01/24/22 420 [facility] [address] [place] [address] Obdulio Barrera, Tone Pulmonology 02/06/22 MD Provider 420 [facility] [address] [place] [address] Lesvia Stanley, GHADA Cardiac Rehabilitation 03/03/22 03/03/23 [facility] Therapist [address] [place], [place] [address] Marilia Deluna, PhD Assigned Behavioral 02/20/22 [address] [facility] Provider [place], [place] [phone] Niyah Decker, [facility] Pharmacist Pharmacist 03/07/22 420 [facility] [address]12 [place], [place] [phone] Clari Poole, Pharmacist Pharmacist 03/07/22 06/15/22 [facility] [address] [facility] [address] [place] [phone] Lesvia Stanley EP Cardiac Rehabilitation 03/17/22 03/17/23 [facility] Therapist [address] [id number] Clari Ruiz Assigned MTM 04/09/22 05/27/22 Jocelyn [facility] Pharmacist [address] [place] [address] Mago Swift, [facility] Lead Speech Therapy Assistant Dean Of Faculty - 08/05/21 Clinical documented as of this encounter
--- OUTSIDE RECORDS SUMMARY | 2022-10-21 08:52 | XMS_ITS | Encounter Summary ---
:1980 Author Organization [place] Address [address] [place] [address] Care Team Providers Name Role Phone Aydee Burton PSYCHOLOGICAL STRESS EVALUATOR DIRECTOR CONTENT MARKETING Primary Care Provider Aydee Burton PSYCHOLOGICAL STRESS EVALUATOR DIRECTOR CONTENT MARKETING Unavailable [phone] Louisa Hood PSYCHOLOGICAL STRESS EVALUATOR DIRECTOR CONTENT MARKETING Unavailable [phone] Se Levy [facility] Unavailable Unavailable Clari Ruiz [facility] Unavailable [phone] Angel Hannah MD Unavailable Lesly Celaya MD Unavailable Tawana Patel MA Unavailable Unavailable Ramses Mcpherson MD Unavailable [phone] Obdulio Barrera MD Unavailable [phone] Obdulio Barrera MD Unavailable [phone] Lesvia Stanley Unavailable Marilia Deluna PhD Unavailable Niyah Decker [facility] Unavailable Clari Poole [facility] Unavailable JadenLesvia Unavailable Clari Ruiz [facility] Unavailable [phone] Mago Swift [facility] Unavailable Encounter Details Date Type [...] How often do you attend quaker or christian services? 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 documented as of this encounter Plan of Treatment Upcoming Encounters Date Type Specialty Care Team Description 10/21/2022 Office Visit Pulmonology Obdulio Barrera MD [address] [phone] (Wo rk) 10/25/2022 PRE VISIT ENT Charo Burton MD Previsit 909 [place] [address] (Wo rk) 10/25/2022 Office Visit ENT Charo Burton MD [address] [place] [address] (Wo rk) 10/25/2022 Office Visit ENT Provider, Ent Dysphonia Insole Rasper 10/25/2022 Virtual Visit Pain & Palliative Care [place] [address] [place], [place] [address] 10/28/2022 Appointment Speech Therapy Anabel Chew, BACK END WEB DEVELOPER [address] [phone] (Wo rk) 11/17/2022 Appointment Speech Therapy Anabel Chew, BACK END WEB DEVELOPER [address] [phone] (Wo rk) 12/01/2022 Office Visit Pain & [place] [address] [place], [place] [address] (Wo rk) 12/23/2022 Office Visit Neurology Colby Yeung MD [address] [place] [id number] (Wo rk) documented as of this encounter Visit Diagnoses Not on filedocumented in this encounter Additional Health Concerns Assessment Noted Time PHQ-9 Depression Total Score: 16 03/25/2022 7:29 AM CD T documented as of this encounter Care Teams Customer Engagement Manager Relationship Specialty Start Date End Date Aydee Burton, PCP - General Nurse Practitioner - 05/17/21 PSYCHOLOGICAL STRESS EVALUATOR DIRECTOR CONTENT MARKETING Family [address] [place], [place] [address] Aydee Burton, Assigned PCP 04/28/21 PSYCHOLOGICAL STRESS EVALUATOR DIRECTOR CONTENT MARKETING [address] [place], [place] [phone] Louisa Hood, Assigned Neuroscience 07/11/21 PSYCHOLOGICAL STRESS EVALUATOR DIRECTOR CONTENT MARKETING Provider [address] [place] [address] Se Levy, Lead Diesel Maintenance Electrician 08/05/21 05/12/22 Clari Francois Pharmacist Pharmacist 08/06/21 06/07/22 [facility] [address] [place] [address] [place], Assigned Sleep 08/01/21 Angel Turcios, Provider [address] [place] [address] Lesly Celaya MD Assigned Surgical 09/05/21 [address] [place] [address] Tawana Patel MA [facility] 09/30/21 Worker Ramses Mcpherson Assigned OBGYN 11/07/21 MD Onesimo Provider [address] [place] [address] Obdulio Barrera MD Critical Care 01/24/22 420 [facility] [address] [place], [place] [phone] Obdulio Barrera, Assigned Pulmonology 02/06/22 MD Provider 420 [facility] [address] [place], [place] [address] Lesvia Stanley, GHADA Cardiac Rehabilitation 03/03/22 03/03/23 [facility] Therapist [address] [place] [id number] Marilia Deluna, PhD Assigned Behavioral 02/20/22 [address] [facility] [place] [address] Niyah Decker, [facility] Pharmacist Pharmacist 03/07/22 420 [facility] [address]12 [place], [place] [address] Clari Poole, Pharmacist Pharmacist 03/07/22 06/15/[address] [facility] [address] [facility] [address] [place] [id number] Lesvia Stanley, GHADA Cardiac Rehabilitation 03/17/22 03/17/23 [facility] Therapist [address] [address] Clari Ruiz Assigned [place] 04/09/22 05/27/[address] [facility] Pharmacist [address] [place], [place] [phone] Mago Swift, [facility] Lead Diesel Maintenance Electrician El Teacher - 08/05/21 Clinical documented as of this encounter
--- OUTSIDE RECORDS SUMMARY | 2022-10-21 08:52 | XMS_ITS | Encounter Summary ---
:1980 Author Organization [place] Address [address] [place] [address] Care Team Providers Name Role Phone Aydee Burton PULMONOLOGIST INTENSIVIST FAMILY PRESERVATION OFFICER Primary Care Provider [phone] Aydee Burton PULMONOLOGIST INTENSIVIST FAMILY PRESERVATION OFFICER Unavailable [phone] Louisa Hood PULMONOLOGIST INTENSIVIST FAMILY PRESERVATION OFFICER Unavailable [phone] Clari Ruiz [facility] Unavailable [phone] Angel Hannah MD Unavailable Lesly Celaya MD Unavailable Tawana Patel MA Unavailable Unavailable Ramses Mcpherson MD Unavailable [phone] Obdulio Barrera MD Unavailable [phone] Obdulio Barrera MD Unavailable [phone] Lesvia Stanley Unavailable Marilia Deluna PhD Unavailable Niyah Decker [facility] Unavailable Clari Poole [facility] Unavailable Lesvia Stanleyn EP Unavailable JosephClari [facility] Unavailable Niyah Warner RN Unavailable Mago Swift [facility] Unavailable Reason for Referral Diagnostic Imaging MRI (Routine) - Closed Specialty Diagnoses / Procedures Referred By Contact Refer red To Contact Radiology. Diagnoses Facial pain Raphael Ernst DO Sh Mri Procedures MR Brain w/o & w Contrast [address] [place] [address]. [place] [address] [place] [id number] Referral ID Status Reason Start Date Expiration Date Visits Requ ested Visits Authorized [id number] Closed 05/19/2022 05/19/2023 1 1 Reason for Visit Reason Comments Neck Pain Encounter Details Date Type Department Care Team Description 05/19/[address] [facility] Raphael Ernst DO Facial pain ([facility] [address] [facility]) [address] [place] [address] [place], [place] [phone] (Wo rk) [address] [phone] Social History Tobacco Use Types Packs/Day Years [...] How often do you attend yazidi or lutheran services? Never 08/05/2021 Do you [...] at Date Recorded Female 11/09/2021 7:53 PM ENDOSCOPY SUPPORT SPECIALIST COVID-19 Exposure Response Date Recorded In [...] Ernst DO - 05/19/2022 9:10 AM CDT [facility] Radiology should be contacting you [...] if symptoms not improving. Raphael Ernst DO [facility] Marta is a 42 year [...] Office Visit Pulmonology Obdulio Barrera MD [address] [place] [address] (Estefanía casanova) 10/25/2022 PRE VISIT Charo Carter MD Previsit [address] [place] [address] (Estefanía casanova) 10/25/2022 Office Visit Charo Carter MD [address] [place] [address] (Wo rk) 10/25/2022 Office Visit ENT Provider, Jeannette Ent Dysphonia Fire Engine Pump Operator 10/25/2022 Virtual Visit Pain & Palliative Care Marilia Deluna, PhD [address] [place], [place] [address] 10/28/2022 Appointment Speech Therapy Anabel Chew, CELINE [address] [address] (Wo rk) 11/17/2022 Appointment Speech Therapy Anabel Chew SLP [address] [phone] (Wo rk) 12/01/2022 Office Visit Pain & [place] [address] [place], [place] [address] (Wo rk) 12/23/2022 Office Visit Neurology Colby Yeung MD [address] [place], [place] [address] (Wo rk) documented as of this encounter [...] ischemic disease. KG RECINOS MD Raphael Bang Sujata BHAT IMG MRI ORDERABLES documented in this encounter Visit Diagnoses Diagnosis Facial pain - Primary Headache Facial pain Headache documented in this encounter Additional Health Concerns Assessment Noted Time PHQ-9 Depression Total Score: 20 05/19/2022 9:02 AM CD T documented as of this encounter Care Teams Turbine Assembler Relationship Specialty Start Date End Date Aydee Burton, PCP - General Nurse Practitioner - 05/17/21 PULMONOLOGIST INTENSIVIST FAMILY PRESERVATION OFFICER Family [address] [place] [phone] Aydee Burton, Assigned PCP 04/28/21 PULMONOLOGIST INTENSIVIST FAMILY PRESERVATION OFFICER [address] [place] [phone] Louisa Hood, Assigned Neuroscience 07/11/21 PULMONOLOGIST INTENSIVIST FAMILY PRESERVATION OFFICER Provider [address] [place], [place] [phone] Clari Ruiz Pharmacist Pharmacist 08/06/21 06/07/22 [facility] [address] [place] [address] [place], Assigned Sleep 08/01/21 Angel Turcios, Provider [address] [place], [place] [phone] Lesly Celaya MD Assigned Surgical 09/05/21 [address] Provider [place], [place] [address] Tawana Patel MA [facility] 09/30/21 Worker Ramses Mcpherson Assigned OBGYN 11/07/21 MD Onesimo Provider [address] [place], [place] [address] Obdulio Barrera MD Critical Care 01/24/22 MD 420 [facility] [address] [place] [address] Obdulio Barrera, Assigned Pulmonology 02/06/22 MD Provider 420 [facility] [address] [place] [address] Lesvia Stanley, EP Cardiac Rehabilitation 03/03/22 03/03/23 [facility] Therapist [address] [place], [place] [address] Marilia Deluna, PhD Assigned Behavioral 02/20/22 [address] [facility] [place] [address] Niyah Decker, [facility] Pharmacist Pharmacist 03/07/22 420 [facility] 8[address] [place], [place] [address] Clari Poole, Pharmacist Pharmacist 03/07/22 06/15/22 [facility] [address] [facility] [place] [address] Lesvia Stanley, GHADA Cardiac Rehabilitation 03/17/22 03/17/23 [facility] Therapist [address] [place], [place] [address] Clari Ruiz Assigned MTM 04/09/22 05/27/22 Jocelyn [facility] Pharmacist [address] [place], [place] [phone] Niyah Warner, Lead Carton And Can Supply Supervisor Primary Care - CC 06/27/22 RN Mago Swift, [facility] Lead Carton And Can Supply Supervisor Drawing Supervisor - 08/05/21 Clinical documented as of this encounter
--- OUTSIDE RECORDS SUMMARY | 2022-10-21 08:53 | XMS_ITS | Encounter Summary ---
:1980 Author Organization [place] Address [address] [place] [address] Care Team Providers Name Role Phone Aydee Burton CHEMISTRY TEACHER COMMERCIAL CREDIT OFFICER Primary Care Provider Aydee Burton CHEMISTRY TEACHER COMMERCIAL CREDIT OFFICER Unavailable [phone] Louisa Hood CHEMISTRY TEACHER COMMERCIAL CREDIT OFFICER Unavailable [phone] Se Levy [facility] Unavailable Unavailable Clari Ruiz [facility] Unavailable [phone] Angel Hannah MD Unavailable Lesly Celaya MD Unavailable Tawana Patel MA Unavailable Unavailable Ramses Mcpherson MD Unavailable [phone] Obdulio Barrera MD Unavailable [phone] Obdulio Barrera MD Unavailable Lesvia Stanley Unavailable Marilia Deluna PhD Unavailable Niyah Decker [facility] Unavailable Clari Poole [facility] Unavailable KandiLesvia moon Unavailable Clari Ruiz [facility] Unavailable [phone] Mago Swift [facility] Unavailable Reason for Visit Reason Onset Date Comments Transfer Note 04/21/2022 Encounter Details Date Type Department Care Team Description 04/21/2022 Telephone [facility] Lucas Grigsby Transfer [place] [address] [address] [facility] [address] [place] [address] [place] [address] [phone] Social History Tobacco Use Types Packs/Day Years [...] How often do you attend sikh or taoism services? Never 08/05/2021 Do you [...] at Date Recorded Female 11/09/2021 7:53 PM BLENDER MACHINE OPERATOR COVID-19 Exposure Response Date Recorded [...] follow up with Dr Kris HDEZ, RN Roofer Helper Vinyl Coating [facility] Pain Management documented in this encounter Plan of Treatment Upcoming Encounters Date Type Specialty Care Team Description 10/21/2022 Office Visit Pulmonology LibertyObdulio moyer MD 420 [facility] 276 [place] [address] (Wo rk) 10/25/2022 PRE VISIT ENT Charo Burton MD Previsit [address] [place] [phone] (Wo rk) 10/25/2022 Office Visit Charo Carter MD [address] [place] [phone] (Wo rk) 10/25/2022 Office Visit ENT Provider, Jeannette Ent Dysphonia Oxyhydrogen Welder 10/25/2022 Virtual Visit Pain & Palliative Care [place] [address] [place], [place] [address] 10/28/2022 Appointment Speech Therapy Anabel Chew SLP [address] [place] [address] (Wo rk) 11/17/2022 Appointment Speech Therapy Anabel Chew, FLOOR LAYER [facility] [address] [facility] 396 [place] [address] (Wo rk) 12/01/2022 Office Visit Pain & [place] [address] [facility] [place], [place] [address] (Wo rk) 12/23/2022 Office Visit Neurology Colby Yeung MD [address] [place] [address] (Wo rk) documented as of this encounter Visit Diagnoses Not on filedocumented in this encounter Additional Health Concerns Assessment Noted Time PHQ-9 Depression Total Score: 16 03/25/2022 7:29 AM CD T documented as of this encounter Care Teams Caustic Plant Worker Relationship Specialty Start Date End Date Aydee Burton, PCP - General Nurse Practitioner - 05/17/21 CHEMISTRY TEACHER COMMERCIAL CREDIT OFFICER Family [address] [place] [address] Aydee Burton, Assigned PCP 04/28/21 CHEMISTRY TEACHER COMMERCIAL CREDIT OFFICER [address] [place] [address] Louisa Hood, Assigned Neuroscience 07/11/21 CHEMISTRY TEACHER COMMERCIAL CREDIT OFFICER Provider 500 [place] [address] Se Levy, Lead Roofer Helper Vinyl Coating 08/05/21 05/12/22 Clari Francois Pharmacist Pharmacist 08/06/21 06/07/22 Jocelyn [facility] [address] [place] [address] [place], Assigned Sleep 08/01/21 Angel Turcios, Provider [address] [place] [address] Lesly Celaya MD Assigned Surgical 09/05/21 [address] [facility] Provider [place], [place] [address] Tawana Patel MA [facility] 09/30/21 Worker Ramses Mcpherson Assigned OBGYN 11/07/21 MD Onesimo Provider [address] [place], [place] [phone] Obdulio Barrera MD Critical Care 01/24/[address] [place] [address] 276 [place] [address] Obdulio Barrera, Assigned Pulmonology 02/06/22 MD Provider [address] [place] [address] 276 [place], [place] [address] Lesvia Stanley, GHADA Cardiac Rehabilitation 03/03/22 03/03/23 [facility] Therapist [address] [address] Marilia Deluna, PhD Assigned Behavioral 02/20/22 [address] [facility] Provider [place], [place] [address] Niyah Decker, [facility] Pharmacist Pharmacist 03/07/22 420 [facility] 812 [place], [place] [address] Clari Poole, Pharmacist Pharmacist 03/07/22 06/15/22 [facility] 3[address] [facility] [address] [place] [phone] Lesvia Stanley, GHADA Cardiac Rehabilitation 03/17/22 03/17/23 [facility] Therapist [address] [phone] Clari Ruiz Assigned MTM 04/09/22 05/27/22 Jocelyn [facility] Pharmacist [address] [id number] [place] [address] Mago Swift, [facility] Lead Roofer Helper Vinyl Coating Promotions Director - 08/05/21 Clinical documented as of this encounter
--- OUTSIDE RECORDS SUMMARY | 2022-10-21 08:53 | XMS_ITS | Encounter Summary ---
:1980 Author Organization [place] Address [address] [place] [address] Care Team Providers Name Role Phone Aydee Burton MAID SUPERVISOR SALESFORCE BUSINESS ANALYST Primary Care Provider Aydee Burton MAID SUPERVISOR SALESFORCE BUSINESS ANALYST Unavailable [phone] Louisa Hood MAID SUPERVISOR SALESFORCE BUSINESS ANALYST Unavailable [phone] Se Levy [facility] Unavailable Unavailable Clari Ruiz [facility] Unavailable [phone] Angel Hannah MD Unavailable Lesly Celaya MD Unavailable Tawana Patel MA Unavailable Unavailable Ramses Mcpherson MD Unavailable [phone] Obdulio Barrera MD Unavailable [phone] Obdulio Barrera MD Unavailable [phone] Lesvia Stanley Unavailable Marilia Deluna PhD Unavailable Niyah Decker [facility] Unavailable Clari Poole [facility] Unavailable JadenLesvia Unavailable Clari Ruiz [facility] Unavailable Mago Swift [facility] Unavailable Encounter Details Date Type Department [...] How often do you attend evangelical or sikh services? Never 08/05/2021 Do you [...] at Date Recorded Female 11/09/2021 7:53 PM ENAMEL DRIER COVID-19 Exposure Response Date Recorded In the last 10 days, have you been in contact with No / Unsu re 04/12/2022 12:57 PM CDT someone who was confirmed or suspected to have Coronavirus/COVID-19? documented as of this encounter Plan of Treatment Upcoming Encounters Date Type Specialty Care Team Description 10/21/2022 Office Visit Pulmonology Obdulio Barrera MD [address] [phone] (Wo rk) 10/25/2022 PRE VISIT ENT Charo Burton MD Previsit 909 [place] [address] (Wo rk) 10/25/2022 Office Visit ENT Charo Burton MD [address] [place] [address] (Wo rk) 10/25/2022 Office Visit ENT Provider, Ent Dysphonia Accounting Manager Assistant Controller 10/25/2022 Virtual Visit Pain & Palliative [place] [address] [place], [place] [address] 10/28/2022 Appointment Speech Therapy Anabel Chew, NURSE EPIDEMIOLOGIST [address] [phone] (Wo rk) 11/17/2022 Appointment Speech Therapy Anabel Chew, NURSE EPIDEMIOLOGIST [address] [phone] (Wo rk) 12/01/2022 Office Visit Pain & [place] [address] [place], [place] [address] (Wo rk) 12/23/2022 Office Visit Neurology Colby Yeung MD [address] [place] [address] (Wo rk) documented as of this encounter Visit Diagnoses Not on filedocumented in this encounter Additional Health Concerns Assessment Noted Time PHQ-9 Depression Total Score: 16 03/25/2022 7:29 AM CD T documented as of this encounter Care Teams Data Operations Manager Relationship Specialty Start Date End Date Aydee Burton, PCP - General Nurse Practitioner - 05/17/21 MAID SUPERVISOR SALESFORCE BUSINESS ANALYST Family [address] [place], [place] [address] Aydee Burton, Assigned PCP 04/28/21 MAID SUPERVISOR SALESFORCE BUSINESS ANALYST [address] [place], [place] [phone] Louisa Hood, Assigned Neuroscience 07/11/21 MAID SUPERVISOR SALESFORCE BUSINESS ANALYST Provider [address] [place] [address] Se Levy, Lead Medical Insurance Claims Specialist 08/05/21 05/12/22 Clari Francois Pharmacist Pharmacist 08/06/21 06/07/22 [facility] [address] [place] [address] [place], Assigned Sleep 08/01/21 Angel Turcios, Provider [address] [place] [address] Lesly Celaya MD Assigned Surgical 09/05/21 [address] [place] [address] Tawana Patel MA [facility] 09/30/21 Worker Ramses Mcpherson Assigned OBGYN 11/07/21 MD Onesimo Provider [address] [place] [address] Obdulio Barrera MD Critical Care 01/24/22 420 [facility] [address] [place], [place] [phone] Obdulio Barrera, Assigned Pulmonology 02/06/22 MD Provider 420 [facility] [address] [place], [place] [address] Lesvia Stanley, GHADA Cardiac Rehabilitation 03/03/22 03/03/23 [facility] Therapist [address] [place] [address] Marilia Deluna, PhD Assigned Behavioral 02/20/22 [address] [facility] [place] [address] Niyah Decker, [facility] Pharmacist Pharmacist 03/07/22 420 [facility] [address] [place], [place] [address] Clari Poole, Pharmacist Pharmacist 03/07/22 06/15/22 [facility] [address] [place] [phone] Lesvia Stanley, GHADA Cardiac Rehabilitation 03/17/22 03/17/23 [facility] Therapist [address] [address] Clari Ruiz Assigned MT 04/09/22 05/27/22 Jocelyn [facility] Pharmacist [address] [place], [place] [phone] Mago Swift, [facility] Lead Medical Insurance Claims Specialist Sheet Combining Operator - 08/05/21 Clinical documented as of this encounter
--- OUTSIDE RECORDS SUMMARY | 2022-10-21 08:53 | XMS_ITS | Encounter Summary ---
:1980 Author Organization [place] Address [address] [place] [address] Care Team Providers Name Role Phone Aydee Burton COMMUNICATIONS PROJECT MANAGER FITNESS SALES CONSULTANT Primary Care Provider Aydee Burton COMMUNICATIONS PROJECT MANAGER FITNESS SALES CONSULTANT Unavailable [phone] Louisa Hood COMMUNICATIONS PROJECT MANAGER FITNESS SALES CONSULTANT Unavailable [phone] Se Levy [facility] Unavailable Unavailable Clari Ruiz [facility] Unavailable [phone] Angel Hannah MD Unavailable Lesly Celaya MD Unavailable Tawana Patel MA Unavailable Unavailable Ramses Mcpherson MD Unavailable [phone] Obdulio Barrera MD Unavailable [phone] Obdulio Barrera MD Unavailable [phone] Lesvia Stanley Unavailable Marilia Deluna PhD Unavailable Niyah Decker [facility] Unavailable Clari Poole [facility] Unavailable Lesvia Stanley Unavailable Clari Ruiz [facility] Unavailable Mago Swift [facility] Unavailable Reason for Referral Diagnostic Imaging CT Scan (Routine) - Closed Specialty Diagnoses / Procedures Referred By Contact Refer red To Contact Diagnoses Other chronic sinusitis Shant Macias MD Procedures CT Sinus w/o Contrast [facility] [place] [address] [place] [address] [place] [address] Referral ID Status Reason Start Date Expiration Date Visits Requ ested Visits Authorized [id number] Closed 03/31/2022 03/31/2023 1 1 Reason for Visit Diagnostic Imaging CT Scan (Routine) - Closed Specialty Diagnoses / Procedures Referred By Contact Refer red To Contact Diagnoses Other chronic sinusitis Shant Macias MD Procedures CT Sinus w/o Contrast [facility] [address] [address] Referral ID Status Reason Start Date Expiration Date Visits Requ ested Visits Authorized [id number] Closed 03/31/2022 03/31/2023 1 1 Encounter Details Date Type Department Care Team Description 04/15/2022 Hospital Encounter [facility] Shant Macias, Matthew chronic [facility] sinusitis [address] [facility] [id number] [address] [facility] [phone] [address] Social History Tobacco Use Types Packs/Day Years [...] How often do you attend mormonism or hindu services? Never 08/05/2021 Do you [...] at Date Recorded Female 11/09/2021 7:53 PM ENGINEERING SPECIALIST COVID-19 Exposure Response Date Recorded In [...] Care Team Description 10/21/2022 Office Visit Pulmonology HollyObdulio moyer MD 420 [facility] 276 [place] [address] (Wo rk) 10/25/2022 PRE VISIT ENT Charo Burton MD Previsit [address] [place] [phone] (Wo rk) 10/25/2022 Office Visit ENT Charo Burton MD [address] [place] [phone] (Wo rk) 10/25/2022 Office Visit ENT Provider, Ent Dysphonia Gas Engineer 10/25/2022 Virtual Visit Pain & Palliative [place] [address] [place], [place] [address] 10/28/2022 Appointment Speech Therapy Anabel Chew, MIDDLE SCHOOL TUTOR [address] [place], [place] [address] (Wo rk) 11/17/2022 Appointment Speech Therapy Anabel Chew, MIDDLE SCHOOL TUTOR [address] [place], [place] [phone] (Wo rk) 12/01/2022 Office Visit Pain & [place] [address] [place], [place] [address] (Wo rk) 12/23/2022 Office Visit Neurology Colby Yeung MD [address] [address] (Wo rk) documented as [...] c and in the mid orbital plane. Carroll and height of the fovea ethmoidali s: [...] and nasopharynx are unremarkable. Procedure Note Calderon Nicholas MD - 04/15/2022Formatt ing of this note [...] c and in the mid orbital plane. Carroll and height of the fovea ethmoidali s: [...] encounter Visit Diagnoses Diagnosis Other chronic sinusitis documented in this encounter Additional Health Concerns Assessment Noted Time PHQ-9 Depression Total Score: 16 03/25/2022 7:29 AM CD T documented as of this encounter Care Teams Processing Tech Relationship Specialty Start Date End Date Aydee Burton, PCP - General Nurse Practitioner - 05/17/21 COMMUNICATIONS PROJECT MANAGER FITNESS SALES CONSULTANT Family [address] [place] [address] Aydee Burton, Assigned PCP 04/28/21 COMMUNICATIONS PROJECT MANAGER FITNESS SALES CONSULTANT [address] [place], [place] [address] Louisa Hood, Assigned Neuroscience 07/11/21 COMMUNICATIONS PROJECT MANAGER FITNESS SALES CONSULTANT Provider [address] [place], [place] [address] Se Levy, Lead Urban Gardening Specialist 08/05/21 05/12/22 LUNCHROOM MONITORClari Ordonez Pharmacist Pharmacist 08/06/21 06/07/22 [facility] [address] [place], [place] [address] [place], Assigned Sleep 08/01/21 Angel Turcios, Provider [address] [place], [place] [address] Lesly Celaya MD Assigned Surgical 09/05/21 [address] [facility] Provider [place], [place] [address] Tawana Patel [facility] 09/30/21 Worker Ramses Mcpherson Assigned OBGYN 11/07/21 MD Onesimo Provider [address] [place], [place] [address] Obdulio Barrera MD Critical Care 01/24/[address] [place] [address]3625 Obdulio Barrera, Assigned Pulmonology 02/06/[address] [place] [phone] Lesvia Stanley EP Cardiac Rehabilitation 03/03/22 03/03/23 [facility] Therapist [address] [place] [address] Marilia Deluna, PhD Assigned Behavioral 02/20/22 [address] [facility] Health Provider [place], [place] [phone] Niyah Decker, [facility] Pharmacist Pharmacist 03/07/22 420 [facility] [address] [place], [place] [address] Clari Poole, Pharmacist Pharmacist 03/07/22 06/15/22 [facility] [address] [place] [address] Lesvia Stanley, GHADA Cardiac Rehabilitation 03/17/22 03/17/23 [facility] Therapist [address] [place] [address] Clari Ruiz Assigned MT 04/09/22 05/27/22 Jocelyn [facility] Pharmacist [address] [place] [address] Mago Swift, [facility] Lead Urban Gardening Specialist Casing Machine Operator - 08/05/21 Clinical documented as of this encounter
--- OUTSIDE RECORDS SUMMARY | 2022-10-21 08:53 | XMS_ITS | Encounter Summary ---
:1980 Author Organization [place] Address [address] [place] [address] Care Team Providers Name Role Phone Aydee Burton BUSINESS LEADER PRESS WRITER Primary Care Provider Aydee Burton BUSINESS LEADER PRESS WRITER Unavailable [phone] Louisa Hood BUSINESS LEADER PRESS WRITER Unavailable [phone] Se Levy [facility] Unavailable Unavailable Clari Ruiz [facility] Unavailable [phone] Angel Hannah MD Unavailable Lesly Celaya MD Unavailable Tawana Patel MA Unavailable Unavailable Ramses Mcpherson MD Unavailable [phone] Obdulio Barrera MD Unavailable [phone] Obdulio Barrera MD Unavailable [phone] Lesvia Stanley Unavailable Marilia Deluna PhD Unavailable Niyah Decker [facility] Unavailable Clari Poole [facility] Unavailable JadenLesvia Unavailable Clari Ruiz [facility] Unavailable [phone] Mago Swift [facility] Unavailable Encounter Details Date Type [...] How often do you attend advent or buddhism services? Never 08/05/2021 Do you [...] at Date Recorded Female 11/09/2021 7:53 PM FIREBRICK LAYER COVID-19 Exposure Response Date Recorded In the last 10 days, have you been in contact with No / Unsu re 04/20/2022 9:12 AM CDT someone who was confirmed or suspected to have Coronavirus/COVID-19? documented as of this encounter Plan of Treatment Upcoming Encounters Date Type Specialty Care Team Description 10/21/2022 Office Visit Pulmonology Obdulio Barrera MD [address] [phone] (Wo rk) 10/25/2022 PRE VISIT ENT Charo Burton MD Previsit 909 [place] [address] (Wo rk) 10/25/2022 Office Visit ENT Charo Burton MD [address] [place] [address] (Wo rk) 10/25/2022 Office Visit ENT Provider, Ent Dysphonia Instrument/Control Technician 10/25/2022 Virtual Visit Pain & Palliative Care [place] [address] [place], [place] [address] 10/28/2022 Appointment Speech Therapy Anabel Chew, TENSION MACHINE OPERATOR [address] [phone] (Wo rk) 11/17/2022 Appointment Speech Therapy Anabel Chew, TENSION MACHINE OPERATOR [address] [phone] (Wo rk) 12/01/2022 Office Visit Pain & [place] [address] [place], [place] [address] (Wo rk) 12/23/2022 Office Visit Neurology Colby Yeung MD [address] [place] [address] (Wo rk) documented as of this encounter Visit Diagnoses Not on filedocumented in this encounter Additional Health Concerns Assessment Noted Time PHQ-9 Depression Total Score: 16 03/25/2022 7:29 AM CD T documented as of this encounter Care Teams Supervisor Gate Services Relationship Specialty Start Date End Date Aydee Burton, PCP - General Nurse Practitioner - 05/17/21 BUSINESS LEADER PRESS WRITER Family [address] [place], [place] [address] Aydee Burton, Assigned PCP 04/28/21 BUSINESS LEADER PRESS WRITER [address] [place], [place] [phone] Louisa Hood, Assigned Neuroscience 07/11/21 BUSINESS LEADER PRESS WRITER Provider 500 [place] [address] Se Levy, Lead Dealer Sales Rep 08/05/21 05/12/22 Clari Francois Pharmacist Pharmacist 08/06/21 06/07/22 [facility] [address] [place] [address] [place], Assigned Sleep 08/01/21 Angel Turcios, Provider [address] [place] [address] Lesly Celaya MD Assigned Surgical 09/05/21 [address] [place] [address] Tawana Patel MA [facility] 09/30/21 Worker Ramses Mcpherson Assigned OBGYN 11/07/21 MD Onesimo Provider [address] [place] [address] Obdulio Barrera MD Critical Care 01/24/22 420 [facility] [address] [place], [place] [phone] Obdulio Barrera, Assigned Pulmonology 02/06/22 MD Provider 420 [facility] 276 [place], [place] [address] Lesvia Stanley, GHADA Cardiac Rehabilitation 03/03/22 03/03/23 [facility] Therapist [address] [place] [place] [address] Marilia Deluna, PhD Assigned Behavioral 02/20/22 [address] [facility] [place] [place] [address] Niyah Decker, [facility] Pharmacist Pharmacist 03/07/22 420 [facility] 812 [place], [place] [address] Clari Poole, Pharmacist Pharmacist 03/07/22 06/15/22 [facility] [address] [facility] [address] [facility] [address] [place] [phone] Lesvia Stanley, GHADA Cardiac Rehabilitation 03/17/22 03/17/23 [facility] Therapist [address] [address] Clari Ruiz Assigned MT 04/09/22 05/27/22 Jocelyn [facility] Pharmacist [address] [place], [place] [phone] Mago Swift, [facility] Lead Dealer Sales Rep Steeler - 08/05/21 Clinical documented as of this encounter
--- OUTSIDE RECORDS SUMMARY | 2022-10-21 08:53 | XMS_ITS | Encounter Summary ---
:1980 Author Organization [place] Address [address] [place] [address] Care Team Providers Name Role Phone Aydee Burton DATA SME DOG BOARDER Primary Care Provider Aydee Burton DATA SME DOG BOARDER Unavailable [phone] Louisa Hood DATA SME DOG BOARDER Unavailable [phone] Se Levy [facility] Unavailable Unavailable Clari Ruiz [facility] Unavailable [phone] Angel Hannah MD Unavailable Lesly Celaya MD Unavailable Tawana Patel MA Unavailable Unavailable Ramses Mcpherson MD Unavailable [phone] Obdulio Barrera MD Unavailable [phone] Obdulio Barrera MD Unavailable [phone] Lesvia Stanley Unavailable Marilia Deluna PhD Unavailable Niyah Decker [facility] Unavailable Clari Poole [facility] Unavailable JadenLesvia Unavailable Clari Ruiz [facility] Unavailable Mago Swift [facility] Unavailable Encounter Details Date Type Department [...] How often do you attend mormon or pentecostal services? 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/2021 7:53 PM SAP GATHERER COVID-19 Exposure Response Date Recorded In the last 10 days, have you been in contact Unable to asse ss 04/25/2022 1:12 PM CDT with someone who was confirmed or suspected to have Coronavirus/COVID-19? documented as of this encounter Plan of Treatment Upcoming Encounters Date Type Specialty Care Team Description 10/21/2022 Office Visit Pulmonology Obdulio Barrera MD [address] [place] [address] (Wo rk) 10/25/2022 PRE VISIT ENT Charo Burton MD Previsit [address] [place] [address] (Wo rk) 10/25/2022 Office Visit ENT Charo Burton MD [address] [place] [address] (Wo rk) 10/25/2022 Office Visit ENT Provider, Ent Dysphonia Stay Cutter 10/25/2022 Virtual Visit Pain & Palliative Care [place] [address] [place], [place] [address] 10/28/2022 Appointment Speech Therapy Anabel Chew, ATHLETIC COACH [address] [phone] (Wo rk) 11/17/2022 Appointment Speech Therapy Anabel Chew, ATHLETIC COACH [address] [phone] (Wo rk) 12/01/2022 Office Visit Pain & [place] [address] [place], [place] [address] (Wo rk) 12/23/2022 Office Visit Neurology Colby Yeung MD [address] [place] [address] (Wo rk) documented as of this encounter Visit Diagnoses Not on filedocumented in this encounter Additional Health Concerns Assessment Noted Time PHQ-9 Depression Total Score: 16 03/25/2022 7:29 AM CD T documented as of this encounter Care Teams Pastry Chef Relationship Specialty Start Date End Date Aydee Burton, PCP - General Nurse Practitioner - 05/17/21 DATA SME DOG BOARDER Family [address] [place], [place] [address] Aydee Burton, Assigned PCP 04/28/21 DATA SME DOG BOARDER [address] [place], [place] [phone] Louisa Hood, Assigned Neuroscience 07/11/21 DATA SME DOG BOARDER Provider 500 [place] [address] Se Levy, Lead Operator Lights 08/05/21 05/12/22 Clari Francois Pharmacist Pharmacist 08/06/21 06/07/22 [facility] [address] [place], [place] [phone] [place], Assigned Sleep 08/01/21 Angel Turcios, Provider [address] [place], [place] [phone] Lesly Celaya MD Assigned Surgical 09/05/21 [address] [place] [place] [address] Tawana Patel MA [facility] Health 09/30/21 Worker Ramses Mcpherson Assigned OBGYN 11/07/21 MD Onesimo Provider [address] [place] [address] Obdulio Barrera MD Critical Care 01/24/22 420 [facility] [address] [place], [place] [phone] Obdulio Barrera, Assigned Pulmonology 02/06/22 MD Provider 420 [facility] [address] [place], [place] [address] Lesvia Stanley, GHADA Cardiac Rehabilitation 03/03/22 03/03/23 [facility] Therapist [address] [id number] Marilia Deluna, PhD Assigned Behavioral 02/20/22 [address] [facility] [place] [address] Niyah Decker, [facility] Pharmacist Pharmacist 03/07/22 420 [facility] 812 [place] [address] Clari Poole, Pharmacist Pharmacist 03/07/22 06/15/22 [facility] [address] [facility] [address] [place] [phone] Lesvia Stanley, GHADA Cardiac Rehabilitation 03/17/22 03/17/23 [facility] Therapist [address] [address] Clari Ruiz Assigned MT 04/09/22 05/27/22 Jocelyn [facility] Pharmacist [address] [place], [place] [phone] Mago Swift, [facility] Lead Operator Lights Sap Bi Developer - 08/05/21 Clinical documented as of this encounter
--- OUTSIDE RECORDS SUMMARY | 2022-10-21 08:53 | XMS_ITS | Encounter Summary ---
:1980 Author Organization [facility] Address [address] [place] [address] Care Team Providers Name Role Phone Aydee Burton AUXILIARY EQUIPMENT TENDER PARTS SALES REPRESENTATIVE Primary Care Provider Aydee Burton AUXILIARY EQUIPMENT TENDER PARTS SALES REPRESENTATIVE Unavailable [phone] Louisa Hood AUXILIARY EQUIPMENT TENDER PARTS SALES REPRESENTATIVE Unavailable [phone] Se Levy [facility] Unavailable Unavailable Clari Ruiz [facility] Unavailable [phone] Angel Hannah MD Unavailable Lesly Celaya MD Unavailable Tawana Patel MA Unavailable Unavailable Ramses Mcpherson MD Unavailable [phone] Obdulio Barrera MD Unavailable [phone] Obdulio Barrera MD Unavailable [phone] Lesvia Stanley Unavailable Marilia Deluna PhD Unavailable Niyah Decker [facility] Unavailable Clari Poole [facility] Unavailable JadenLesvia Esther Unavailable Clari Ruiz [facility] Unavailable Mago Swift [facility] Unavailable Reason for Visit Rehab Therapy Cardiac Therapy (Routine: Next available opening) - Authorized Specialty Diagnoses / Procedures Referred By Contact Refer red To Contact CARDIAC REHAB Diagnoses Asthma SOB (shortness of breath) [address] [place] [address] Phone: Referral ID Status Reason Start Date Expiration Date Visits V isits Requested Authorized [id number] Authorized 11/13/2021 11/12/2022 365 365 Encounter Details Date Type Department Care Team Description 04/20/2022 Hospital Encounter [facility] Ezequiel Barrera MD 420 [facility] 276 [place] [address] Cardiac and Pulmonary 2, Rh Pulmonary Rehab Rehabilitation [address] [place] [address] Social History Tobacco Use Types [...] How often do you attend baptism or mormonism services? 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 COVID-19 Exposure Response Date Recorded [...] Visit Pulmonology Obdulio Barrera MD [address] [address] (Wo rk) 10/25/2022 PRE VISIT ENT Charo Burton MD Previsit [address] [place] [address] (Wo rk) 10/25/2022 Office Visit Charo Carter MD [address] [place] [address] (Estefanía rk) 10/25/2022 Office Visit ENT Provider, Ent Dysphonia Industrial Maintenance [employer] 10/25/2022 Virtual Visit Pain & Palliative Care Marilia Deluna, PhD [address] [place], [place] [address] 10/28/2022 Appointment Speech Therapy Anabel Chew, IMPORTER OR EXPORTER [address] 049725 (Wo rk) 11/17/2022 Appointment Speech Therapy Anabel Chew, IMPORTER OR EXPORTER [address] [phone] (Wo rk) 12/01/2022 Office Visit Pain & [place] [address] [place], [place] [address] (Wo rk) 12/23/2022 Office Visit Neurology Colby Yeung MD [address] [place] [place] 6[address]15 (Wo rk) documented as of this encounter Visit Diagnoses Not on filedocumented in this encounter Additional Health Concerns Assessment Noted Time PHQ-9 Depression Total Score: 16 03/25/2022 7:29 AM CD T documented as of this encounter Care Teams Stripper Cutter Machine Relationship Specialty Start Date End Date Aydee Burton, PCP - General Nurse Practitioner - 05/17/21 AUXILIARY EQUIPMENT TENDER PARTS SALES REPRESENTATIVE Family [address] [place] [address] [phone] Aydee Burton, Assigned PCP 04/28/21 AUXILIARY EQUIPMENT TENDER [address] [phone] Louisa Hood, Assigned Neuroscience 07/11/21 AUXILIARY EQUIPMENT TENDER PARTS SALES REPRESENTATIVE Provider [address] [place] [address] [phone] Se Levy, Lead Crew Foreman 08/05/21 05/12/22 [facility] Clari Ruiz Pharmacist Pharmacist 08/06/21 06/07/22 Jocelyn [facility] [address] [facility] [address] [place] [address] [place], Assigned Sleep 08/01/21 Angel Turcios, Provider [address] [place] [address] Lesly Celaya MD Assigned Surgical 09/05/21 [address] [facility] [place] [address] Tawana Patel MA [facility] 09/30/21 Worker Ramses Mcpherson Assigned OBGYN 11/07/21 MD Onesimo Provider [address] [place] [address] Obdulio Barrera MD Critical Care 01/24/22 420 [facility] 276 [place] [address] Obdulio Barrera, Tone Pulmonology 02/06/22 MD Provider 420 [facility] [address] [place] [address] Lesvia Stanley, GHADA Cardiac Rehabilitation 03/03/22 03/03/23 [facility] Therapist [address] [place], [place] [address] Marilia Deluna, PhD Assigned Behavioral 02/20/22 [address] [facility] Provider [place], [place] [phone] Niyah Decker, [facility] Pharmacist Pharmacist 03/07/22 420 [facility] 812 [place], [place] [phone] Clari Poole, Pharmacist Pharmacist 03/07/22 06/15/22 [facility] 0938 [facility] [place] [phone] Lesvia Stanley EP Cardiac Rehabilitation 03/17/22 03/17/23 [facility] Therapist [address] [id number] Clari Ruiz Assigned MTM 04/09/22 05/27/22 Jocelyn [facility] Pharmacist [address] [place] [address] Mago Swift, [employer] Lead Crew Foreman Long Chain Dyeing Machine Operator - 08/05/21 Clinical documented as of this encounter
--- OUTSIDE RECORDS SUMMARY | 2022-10-21 08:53 | XMS_ITS | Encounter Summary ---
:1980 Author Organization [facility] Address [address] [place] [address] Care Team Providers Name Role Phone Aydee Burton FELLING BUCKING SUPERVISOR SALES REPRESENTATIVE WIRE ROPE Primary Care Provider Aydee Burton FELLING BUCKING SUPERVISOR SALES REPRESENTATIVE [employer] Unavailable [phone] Louisa Hood FELLING BUCKING SUPERVISOR SALES REPRESENTATIVE W[employer]OPE Unavailable [phone] Se Levy [facility] Unavailable Unavailable Clari Ruiz [facility] Unavailable [phone] Angel Hannah MD Unavailable Lesly Celaya MD Unavailable Tawana Patel MA Unavailable Unavailable Ramses Mcpherson MD Unavailable [phone] Obdulio Barrera MD Unavailable Obdulio Barrera MD Unavailable [phone] Lesvia Stanley Unavailable Marilia Deluna PhD Unavailable Niyah Decker [facility] Unavailable Clari Poole [facility] Unavailable JadenLesvia Esther Unavailable JosephClari jay [facility] Unavailable Mago Swift [facility] Unavailable Reason for Visit Rehab Therapy Cardiac Therapy (Routine: Next available opening) - Authorized Specialty Diagnoses / Procedures Referred By Contact Refer red To Contact CARDIAC REHAB Diagnoses Asthma SOB (shortness of breath) [address] [place] [address] Phone: Referral ID Status Reason Start Date Expiration Date Visits V isits Requested Authorized [id number] Authorized 11/13/2021 11/12/2022 365 365 Encounter Details Date Type Department Care Team Description 04/12/2022 Hospital Encounter [facility] HollyEzequiel MD 420 [facility] 276 [place] [address] Cardiac and Pulmonary 1, Rh Pulmonary Rehab Rehabilitation [address] [place] [address] Social History Tobacco Use Types [...] How often do you attend mormon or holiness services? 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 COVID-19 Exposure Response Date Recorded In [...] Office Visit Pulmonology Obdulio Barrera MD [address] [address] (Wo rk) 10/25/2022 PRE VISIT ENT Charo Burton MD Previsit [address] [place] [address] (Wo rk) 10/25/2022 Office Visit Charo Carter MD [address] [place] [address] (Estefanía rk) 10/25/2022 Office Visit ENT Provider, Ent Dysphonia Rolling Machine Tender 10/25/2022 Virtual Visit Pain & Palliative Care [place] [address] [place], [place] [address] 10/28/2022 Appointment Speech Therapy Anabel Chew, TONGUER [address] [id number] (Wo rk) 11/17/2022 Appointment Speech Therapy Anabel Chew, TONGUER [address] 225665 (Wo rk) 12/01/2022 Office Visit Pain & [place] [address] [place], [place] [address] (Wo rk) 12/23/2022 Office Visit Neurology Colby Yeung MD [address] [place] [address]135 (Wo rk) documented as of this encounter Visit Diagnoses Not on filedocumented in this encounter Additional Health Concerns Assessment Noted Time PHQ-9 Depression Total Score: 16 03/25/2022 7:29 AM CD T documented as of this encounter Care Teams Process Designer Relationship Specialty Start Date End Date Aydee Burton, PCP - General Nurse Practitioner - 05/17/21 FELLING BUCKING SUPERVISOR SALES REPRESENTATIVE WIRE ROPE Family [address] [place] [phone] Aydee Burton, Assigned PCP 04/28/21 FELLING BUCKING SUPERVISOR [address] [phone] Louisa Hood, Assigned Neuroscience 07/11/21 FELLING BUCKING SUPERVISOR SALES REPRESENTATIVE WIRE ROPE Provider [address] [place] [address] [phone] Se Levy, Lead Supervisor Beam Department 08/05/21 05/12/22 [facility] Clari Ruiz Pharmacist Pharmacist 08/06/21 06/07/22 Jocelyn [facility] [address] [place] [address] [place], Assigned Sleep 08/01/21 Angel Turcios, Provider [address] [place] [address] Lesly Celaya MD Assigned Surgical 09/05/21 [address] [facility] [place] [address] Tawana Patel MA [facility] 09/30/21 Worker Ramses Mcpherson Assigned OBGYN 11/07/21 MD Onesimo Provider [address] [place] [address] Obdulio Barrera MD Critical Care 01/24/22 420 [facility] 276 [place] [address] Obdulio Barrera, Tone Pulmonology 02/06/22 MD Provider 420 [facility] 276 [place] [address] Lesvia Stanley, GHADA Cardiac Rehabilitation 03/03/22 03/03/23 [facility] Therapist [address] [place], [place] [address] Marilia Deluna, PhD Assigned Behavioral 02/20/22 [address] [facility] Provider [place], [place] [phone] Niyah Decker, [facility] Pharmacist Pharmacist 03/07/22 420 [facility] 812 [place], [place] [phone] Clari Poole, Pharmacist Pharmacist 03/07/22 06/15/22 [facility] 5782 [facility] [address] [place] [phone] Lesvia Stanley EP Cardiac Rehabilitation 03/17/22 03/17/23 [facility] Therapist [address] [id number] Clari Ruiz Assigned MTM 04/09/22 05/27/22 Jocelyn [facility] Pharmacist [address] [place] [address] Mago Swift, [facility] Lead Supervisor Beam Department Hoop Punch Operator Helper - 08/05/21 Clinical documented as of this encounter
--- OUTSIDE RECORDS SUMMARY | 2022-10-21 08:53 | XMS_ITS | Encounter Summary ---
:1980 Author Organization [facility] Address [address] [place] [address] Care Team Providers Name Role Phone Aydee Burton PROCEDURE TECH BUSINESS INFORMATION MANAGER Primary Care Provider [phone] Aydee Burton PROCEDURE TECH BUSINESS INFORMATION MANAGER Unavailable [phone] Louisa Hood PROCEDURE TECH BUSINESS INFORMATION MANAGER Unavailable [phone] Se Levy [facility] Unavailable Unavailable Clari Ruiz [facility] Unavailable [phone] Angel Hannah MD Unavailable Lesly Celaya MD Unavailable Tawana Patel MA Unavailable Unavailable Ramses Mcpherson MD Unavailable [phone] Obdulio Barrera MD Unavailable [phone] Obdulio Barrera MD Unavailable [phone] Lesvia Stanley Unavailable Marilia Deluna PhD Unavailable Niyah Decker [facility] Unavailable Clari Poole [facility] Unavailable JadenLesvia Unavailable Clari Ruiz [facility] Unavailable [phone] aMgo Swift [facility] Unavailable Encounter Details Date Type [...] How often do you attend rastafari or druze services? Never 08/05/2021 Do you [...] at Date Recorded Female 11/09/2021 7:53 PM WHEEL LACER AND TRUER COVID-19 Exposure Response Date Recorded In the last 10 days, have you been in contact with No / Unsu re 04/14/2022 12:12 PM CDT someone who was confirmed or suspected to have Coronavirus/COVID-19? documented as of this encounter Plan of Treatment Upcoming Encounters Date Type Specialty Care Team Description 10/21/2022 Office Visit Pulmonology Obdulio Barrera MD [address] [phone] (Wo rk) 10/25/2022 PRE VISIT ENT Charo Burton MD Previsit 909 [place] [address] (Wo rk) 10/25/2022 Office Visit ENT Charo Burton MD [address] [place] [address] (Wo rk) 10/25/2022 Office Visit ENT Provider, Ent Dysphonia Handkerchief Folder 10/25/2022 Virtual Visit Pain & Palliative Care Marilia Deluna, [place] [address] [place], [place] [address] 10/28/2022 Appointment Speech Therapy Anabel Chew, PERSONNEL PSYCHOLOGIST [address] [phone] (Wo rk) 11/17/2022 Appointment Speech Therapy Anabel Chew, PERSONNEL PSYCHOLOGIST [address] [phone] (Wo rk) 12/01/2022 Office Visit Pain & [place] [address] [place], [place] [address] (Wo rk) 12/23/2022 Office Visit Neurology Colby Yeung MD [address] [place] [address] (Wo rk) documented as of this encounter Visit Diagnoses Not on filedocumented in this encounter Additional Health Concerns Assessment Noted Time PHQ-9 Depression Total Score: 16 03/25/2022 7:29 AM CD T documented as of this encounter Care Teams Water Purifier Relationship Specialty Start Date End Date Aydee Burton, PCP - General Nurse Practitioner - 05/17/21 PROCEDURE TECH BUSINESS INFORMATION MANAGER Family [address] [place], [place] [phone] Aydee Burton, Assigned PCP 04/28/21 PROCEDURE TECH BUSINESS INFORMATION MANAGER [address] [place], [place] [phone] Louisa Hood, Assigned Neuroscience 07/11/21 PROCEDURE TECH BUSINESS INFORMATION MANAGER Provider 500 [place] [address] Se Levy, Lead Turfgrass Management Professor 08/05/21 05/12/22 Clari Francois Pharmacist Pharmacist 08/06/21 [facility]/07/22 [facility] [address] [place] [address] [place], Assigned Sleep 08/01/21 Angel Turcios, Provider [address] [place] [address] Lesly Celaya MD Assigned Surgical 09/05/21 [address] [place] [address] Tawana Patel MA [facility] 09/30/21 Worker Ramses Mcpherson Assigned OBGYN 11/07/21 MD Onesimo Provider [address] [place] [address] Obdulio Barrera MD Critical Care 01/24/22 420 [facility] 276 [place], [place] [phone] Obdulio Barrera, Assigned Pulmonology 02/06/22 MD Provider 420 [facility] 276 [place], [place] [address] Lesvia Stanley, GHADA Cardiac Rehabilitation 03/03/22 03/03/23 [facility] Therapist [address] [place] [phone] Marilia Deluna, PhD Assigned Behavioral 02/20/22 [address] [facility] [place] [place] [address] Niyah Decker, [facility] Pharmacist Pharmacist 03/07/22 420 [facility] 812 [place], [place] [address] Clari Poole, Pharmacist Pharmacist 03/07/22 06/15/22 [facility] [address] [place] [phone] Lesvia Stanley, GHADA Cardiac Rehabilitation 03/17/22 03/17/23 [facility] Therapist [address] [address] Clari Ruiz Assigned MT 04/09/22 05/27/22 Jocelyn [facility] Pharmacist [address] [place], [place] [phone] Mago Swift, [facility] Lead Turfgrass Management Professor Metal Tank Builder - 08/05/21 Clinical documented as of this encounter
--- OUTSIDE RECORDS SUMMARY | 2022-10-21 08:53 | XMS_ITS | Encounter Summary ---
:1980 Author Organization [place] Address [address] [place] [address] Care Team Providers Name Role Phone Aydee Burton PALLET SORTER MAINTENANCE DEPARTMENT MANAGER Primary Care Provider Aydee Burton PALLET SORTER MAINTENANCE DEPARTMENT MANAGER Unavailable [phone] Louisa Hood PALLET SORTER MAINTENANCE DEPARTMENT MANAGER Unavailable [phone] Se Levy [facility] Unavailable Unavailable Clari Ruiz [facility] Unavailable [phone] Angel Hannah MD Unavailable Lesly Celaya MD Unavailable Tawana Patel MA Unavailable Unavailable Ramses Mcpherson MD Unavailable [phone] Obdulio Barrera MD Unavailable [phone] Obdulio Barrera MD Unavailable [phone] Lesvia Stanley Unavailable Marilia Deluna PhD Unavailable Niyah Decker [facility] Unavailable Clari Poole [facility] Unavailable JadenLesvia Unavailable Clari Ruiz [facility] Unavailable Mago Swift [facility] Unavailable Encounter Details Date [...] at Date Recorded Female 11/09/2021 7:53 PM FOLDED 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 documented as of this encounter Plan of Treatment Upcoming Encounters Date Type Specialty Care Team Description 10/21/2022 Office Visit Pulmonology Obdulio Barrera MD [address] [phone] (Wo rk) 10/25/2022 PRE VISIT ENT Charo Burton MD Previsit 909 [place] [address] (Wo rk) 10/25/2022 Office Visit ENT Charo Burton MD [address] [place] [address] (Wo rk) 10/25/2022 Office Visit ENT Provider, Ent Dysphonia Cutter Apprentice Hand 10/25/2022 Virtual Visit Pain & Palliative Care Marilia Deluna, PhD [address] [place], [place] [address] 10/28/2022 Appointment Speech Therapy Anabel Chew, DIANETIC COUNSELOR [address] [phone] (Wo rk) 11/17/2022 Appointment Speech Therapy Anabel Chew, DIANETIC COUNSELOR [address] [phone] (Wo rk) 12/01/2022 Office Visit Pain & [place] [address] [place], [place] [address] (Wo rk) 12/23/2022 Office Visit Neurology Colby Yeung MD [address] [place] [address] (Wo rk) documented as of this encounter Visit Diagnoses Not on filedocumented in this encounter Additional Health Concerns Assessment Noted Time PHQ-9 Depression Total Score: 16 03/25/2022 7:29 AM CD T documented as of this encounter Care Teams Gum Machine Filler Relationship Specialty Start Date End Date Aydee Burton, PCP - General Nurse Practitioner - 05/17/21 PALLET SORTER MAINTENANCE DEPARTMENT MANAGER Family [address] [place], [place] [address]992 Aydee Burton, Assigned PCP 04/28/21 PALLET SORTER MAINTENANCE DEPARTMENT MANAGER [address] [place], [place] [phone] Louisa Hood, Assigned Neuroscience 07/11/21 PALLET SORTER MAINTENANCE DEPARTMENT MANAGER Provider 500 [place] [address] Se Levy, Lead Control Clerk 08/05/21 05/12/22 Clari Francois Pharmacist Pharmacist 08/06/21 06/07/22 [facility] [address] [place] [address] [place], Assigned Sleep 08/01/21 Angel Turcios, Provider [address] [place] [address] Lesly Celaya MD Assigned Surgical 09/05/21 [address] [place] [address] Tawana Patel MA [facility] 09/30/21 Worker Ramses Mcpherson Assigned OBGYN 11/07/21 MD Onesimo Provider [address] [place] [address] Obdulio Barrera MD Critical Care 01/24/22 420 [facility] 276 [place], [place] [phone] Obdulio Barrera, Assigned Pulmonology 02/06/22 MD Provider 420 [facility] 276 [place], [place] [address] Lesvia Stanley, GHADA Cardiac Rehabilitation 03/03/22 03/03/23 [facility] Therapist [address] [place] [address] Marilia Deluna, PhD Assigned Behavioral 02/20/22 [address] [facility] [place] [address] Niyah Decker, [facility] Pharmacist Pharmacist 03/07/22 420 [facility] 812 [place], [place] [address] Clari Poole, Pharmacist Pharmacist 03/07/22 06/15/22 [facility] [address] [place] [phone] Lesvia Stanley, GHADA Cardiac Rehabilitation 03/17/22 03/17/23 [facility] Therapist [address] [phone] Clari Ruiz Assigned MT 04/09/22 05/27/22 Jocelyn [facility] Pharmacist [address] [place], [place] [phone] Mago Swift, [facility] Lead Control Clerk Cyber Incident Responder - 08/05/21 Clinical documented as of this encounter
--- OUTSIDE RECORDS SUMMARY | 2022-10-21 08:53 | XMS_ITS | Encounter Summary ---
:1980 Author Organization [facility] Address [address] [place] [address] Care Team Providers Name Role Phone Aydee Burton CHEMICAL SUPERVISOR QUALITY TECHNICIAN Primary Care Provider Aydee Burton CHEMICAL SUPERVISOR QUALITY TECHNICIAN Unavailable [phone] Louisa Hood CHEMICAL SUPERVISOR QUALITY TECHNICIAN Unavailable [phone] Se Levy [facility] Unavailable Unavailable Clari Ruiz [facility] Unavailable [phone] Angel Hannah MD Unavailable Lesly Celaya MD Unavailable Tawana Patel MA Unavailable Unavailable Ramses Mcpherson MD Unavailable [phone] Obdulio Barrera MD Unavailable [phone] Obdulio Barrera MD Unavailable [phone] Lesvia Stanley Unavailable Marilia Deluna PhD Unavailable Niyah Decker [facility] Unavailable Clari Poole [facility] Unavailable JadenLesvia Esther Unavailable JosephClari jay [facility] Unavailable [phone] Mago Swift [facility] Unavailable Reason for Visit Rehab Therapy Cardiac Therapy (Routine: Next available opening) - Authorized Specialty Diagnoses / Procedures Referred By Contact Refer red To Contact CARDIAC REHAB Diagnoses Asthma SOB (shortness of breath) [address] [place] [address] Phone: Referral ID Status Reason Start Date Expiration Date Visits V isits Requested Authorized [id number] Authorized 11/13/2021 11/12/2022 365 365 Encounter Details Date Type Department Care Team Description 04/14/2022 Hospital Encounter [facility] HollyEzequiel MD 420 [facility] 276 [place] [address] Cardiac and Pulmonary 1, Rh Pulmonary Rehab Rehabilitation [address] [place] [address] Social History Tobacco Use Types [...] How often do you attend christian or mandaeism services? 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 COVID-19 Exposure Response Date Recorded In [...] Visit Pulmonology Obdulio Barrera MD [address] [address] (Wo rk) 10/25/2022 PRE VISIT ENT Charo Burton MD Previsit [address] [place] [address] (Wo rk) 10/25/2022 Office Visit Charo Carter MD [address] [place] [address] (Estefanía rk) 10/25/2022 Office Visit ENT Provider, Ent Dysphonia Radiologic Technology Program Director 10/25/2022 Virtual Visit Pain & Palliative Care [place] [address] [place], [place] [address] 10/28/2022 Appointment Speech Therapy Anabel Chew, BODY MAKE UP ARTIST [address] 828215 (Wo rk) 11/17/2022 Appointment Speech Therapy Anabel Chew, BODY MAKE UP ARTIST [address] 109895 (Wo rk) 12/01/2022 Office Visit Pain & [place] [address] [place], [place] [address] (Wo rk) 12/23/2022 Office Visit Neurology Colby Yeung MD [address] [place] 520155 (Wo rk) documented as of this encounter Visit Diagnoses Not on filedocumented in this encounter Additional Health Concerns Assessment Noted Time PHQ-9 Depression Total Score: 16 03/25/2022 7:29 AM CD T documented as of this encounter Care Teams Machine Setter Supervisor Relationship Specialty Start Date End Date Aydee Burton, PCP - General Nurse Practitioner - 05/17/21 CHEMICAL SUPERVISOR QUALITY TECHNICIAN Family [address] [place] [address] [phone] Aydee Burton, Assigned PCP 04/28/21 CHEMICAL SUPERVISOR [address] [phone] Louisa Hood, Assigned Neuroscience 07/11/21 CHEMICAL SUPERVISOR QUALITY TECHNICIAN Provider [address] [place] [address] [phone] Se Levy, Lead Auto Dealership Porter 08/05/21 05/12/22 [facility] Clari Ruiz Pharmacist Pharmacist 08/06/21 06/07/22 Jocelyn [facility] [address] [place] [address] [place], Assigned Sleep 08/01/21 Angel Turcios, Provider [address] [place] [address] Lesly Celaya MD Assigned Surgical 09/05/21 [address] [facility] [place] [address] Tawana Patel MA [facility] 09/30/21 Worker Ramses Mcpherson Assigned OBGYN 11/07/21 MD Onesimo Provider [address] [place] [address] Obdulio Barrera MD Critical Care 01/24/22 420 [facility] [address] [place] [address] Obdulio Barrera, Tone Pulmonology 02/06/22 MD Provider 420 [facility] [address] [place] [address] Lesvia Stanley, GHADA Cardiac Rehabilitation 03/03/22 03/03/23 [facility] Therapist [address] [place], [place] [address] Marilia Deluna, PhD Assigned Behavioral 02/20/22 [address] [facility] Provider [place], [place] [phone] Niyah Decker, [facility] Pharmacist Pharmacist 03/07/22 420 [facility] 812 [place], [place] [phone] Clari Poole, Pharmacist Pharmacist 03/07/22 06/15/22 [facility] 29[address] [facility] [place] [phone] Lesvia Stanley EP Cardiac Rehabilitation 03/17/22 03/17/23 [facility] Therapist [address] [id number] Clari Ruiz Assigned MTM 04/09/22 05/27/22 Jocelyn [facility] Pharmacist [address] [place] [address] Mago Swift, [facility] Lead Auto Dealership Porter Nuclear Weapons Mechanical Specialist - 08/05/21 Clinical documented as of this encounter
--- OUTSIDE RECORDS SUMMARY | 2022-10-21 08:53 | XMS_ITS | Encounter Summary ---
:1980 Author Organization [place] Address [address] [place] [address] Care Team Providers Name Role Phone Aydee Burton DATA CONTROL ASSISTANT ULTRASONIC HAND SOLDERER Primary Care Provider [phone] Aydee Burton DATA CONTROL ASSISTANT ULTRASONIC HAND SOLDERER Unavailable [phone] Louisa Hood DATA CONTROL ASSISTANT ULTRASONIC HAND SOLDERER Unavailable [phone] Se Levy [facility] Unavailable Unavailable Clari Ruiz [facility] Unavailable [phone] Angel Hannah MD Unavailable Lesly Celaya MD Unavailable Tawana Patel MA Unavailable Unavailable Ramses Mcpherson MD Unavailable [phone] Obdulio Barrera MD Unavailable [phone] Obdulio Barrera MD Unavailable [phone] Lesvia Stanley Unavailable Marilia Deluna PhD Unavailable Niyah Decker [facility] Unavailable Clari Poole [facility] Unavailable JadenCarlitoswalter Santana Unavailable JamisonMago [facility] Unavailable Reason for Visit Rehab Therapy Cardiac Therapy (Routine: Next available opening) - Authorized Specialty Diagnoses / Procedures Referred By Contact Refer red To Contact CARDIAC REHAB Diagnoses Asthma SOB (shortness of breath) [facility] [address] [facility] [place] [address] Phone: Referral ID Status Reason Start Date Expiration Date Visits V isits Requested Authorized [id number] Authorized 11/13/2021 11/12/2022 365 365 Encounter Details Date Type Department Care Team Description 04/07/2022 [facility] 420 [facility] 276 [place] [address] Cardiac and Pulmonary 1, Rh Pulmonary Rehab Rehabilitation [address] [place] [address] Social History Tobacco Use Types [...] How often do you attend jain or hindu services? Never 08/05/2021 Do you [...] at Date Recorded Female 11/09/2021 7:53 PM BASIN OPERATOR COVID-19 Exposure Response Date Recorded In [...] Office Visit Pulmonology Obdulio Barrera MD [address] [address] (Wo rk) 10/25/2022 PRE VISIT ENT Charo Burton MD Previsit [address] [place] [phone] (Estefanía rk) 10/25/2022 Office Visit Charo Carter MD [address] [place] [address] [phone] (Estefanía casanova) 10/25/2022 Office Visit ENT Provider, Ent Dysphonia Retail Event And Sales Assistant 10/25/2022 Virtual Visit Pain & Palliative Care Marilia Deluna[place] PhD [address] [place], [place] [address] 10/28/2022 Appointment Speech Therapy Anabel Chew, MANAGER OF SELECTION AND ASSESSMENT [address] [address] (Wo rk) 11/17/2022 Appointment Speech Therapy Anabel Chew, MANAGER OF SELECTION AND ASSESSMENT [address] [phone] (Wo rk) 12/01/2022 Office Visit Pain & [place] [address] [place], [place] [address] (Wo rk) 12/23/2022 Office Visit Neurology Colby Yeung MD [address] [place] 219985 (Wo rk) documented as of this encounter Visit Diagnoses Not on filedocumented in this encounter Additional Health Concerns Assessment Noted Time PHQ-9 Depression Total Score: 16 03/25/2022 7:29 AM CD T documented as of this encounter Care Teams Lobby Concierge Relationship Specialty Start Date End Date Aydee Burton, PCP - General Nurse Practitioner - 05/17/21 DATA CONTROL ASSISTANT ULTRASONIC HAND SOLDERER Family [address] [place] [address] 850642 Aydee Burton, Assigned PCP 04/28/21 DATA CONTROL ASSISTANT ULTRASONIC HAND SOLDERER [address] [place] [address] [phone] Louisa Hood, Assigned Neuroscience 07/11/21 DATA CONTROL ASSISTANT ULTRASONIC HAND SOLDERER Provider [address] [place] [address] [phone] Se Levy, Lead Net Mender 08/05/21 05/12/22 FOOD SERVICE REPRESENTATIVE Clari Ruiz Pharmacist Pharmacist 08/06/21 06/07/22 Jocelyn [facility] [address] [place] [address] [place], Assigned Sleep 08/01/21 Angel Turcios, Provider [address] [place] [address] Lesly Celaya MD Assigned Surgical 09/05/[address] Provider [place], [place] [phone] Tawana Patel MA [facility] 09/30/21 Worker Ramses Mcpherson Assigned OBGYN 11/07/21 MD Onesimo Provider [address] [place] [address] Obdulio Barrera MD Critical Care 01/24/[address] [place] [address] 276 [place] [address] Obdulio Barrera, Assigned Pulmonology 02/06/22 MD Provider [address] [place] [address] 276 [place], [place] 40[address] Lesvia Stanley, GHADA Cardiac Rehabilitation 03/03/22 03/03/23 [facility] Therapist [address] [facility] [facility] [facility] [address] [place], [place] [address] Marilia Deluna, PhD Assigned Behavioral 02/20/22 [address] [facility] [place] [address] Niyah Decker, [facility] Pharmacist Pharmacist 03/07/22 420 [facility] 812 [place], [place] [phone] Clari Poole, Pharmacist Pharmacist 03/07/22 06/15/22 [facility] [address] [facility] [address] [place], [place] [address] Lesvia Stanley EP Cardiac Rehabilitation 03/17/22 03/17/23 [facility] Therapist [address] [address] Mago Swift, MAJOR CASE DETECTIVE Lead Net Mender Expanded Duty Dental Assistant - 08/05/21 Clinical documented as of this encounter
--- OUTSIDE RECORDS SUMMARY | 2022-10-21 08:53 | XMS_ITS | Encounter Summary ---
:1980 Author Organization [place] Address [address] [place] [address] Care Team Providers Name Role Phone Aydee Burton CHANGE LEAD LOCKSMITH Primary Care Provider [phone] yAdee Burton CHANGE LEAD LOCKSMITH Unavailable [phone] Louisa Hood CHANGE LEAD LOCKSMITH Unavailable [phone] Se Levy [facility] Unavailable Unavailable Clari Ruiz [facility] Unavailable [phone] Angel Hannah MD Unavailable Lesly Celaya MD Unavailable Tawana Patel MA Unavailable Unavailable Ramses Mcpherson MD Unavailable [phone] Obdulio Barrera MD Unavailable [phone] Obdulio Barrera MD Unavailable [phone] Lesvia Stanley Unavailable Marilia Deluna PhD Unavailable Niyah Decker [facility] Unavailable Clari Poole [facility] Unavailable JadenCarlitoswalter Santana Unavailable JamisonMago [facility] Unavailable Encounter Details Date Type [...] often do you attend roman catholic or jain services? Never 08/05/2021 Do you [...] at Date Recorded Female 11/09/2021 7:53 PM POOL LIFEGUARD COVID-19 Exposure Response Date Recorded In the last 10 days, have you been in contact with No / Unsu re 04/07/2022 12:43 PM CDT someone who was confirmed or suspected to have Coronavirus/COVID-19? documented as of this encounter Plan of Treatment Upcoming Encounters Date Type Specialty Care Team Description 10/21/2022 Office Visit Pulmonology Obdulio Barrera MD [address] [phone] (Wo rk) 10/25/2022 PRE VISIT ENT Charo Burton MD Previsit [address] [place] [address] [phone] (Wo rk) 10/25/2022 Office Visit ENT Charo Burton MD [address] [place] [address] [phone] (Wo rk) 10/25/2022 Office Visit ENT Provider, Ent Dysphonia Cloud Security Architect 10/25/2022 Virtual Visit Pain & Palliative [place] [address] [place], [place] [address] 10/28/2022 Appointment Speech Therapy Anabel Chew, PLANT PACKER [address] [phone] (Wo rk) 11/17/2022 Appointment Speech Therapy Anabel Chew, PLANT PACKER [address] [address] (Wo rk) 12/01/2022 Office Visit Pain & [place] [address] [place], [place] [address] (Wo rk) 12/23/2022 Office Visit Neurology Colby Yeung MD [address] [address] [address] (Wo rk) documented as of this encounter Visit Diagnoses Not on filedocumented in this encounter Additional Health Concerns Assessment Noted Time PHQ-9 Depression Total Score: 16 03/25/2022 7:29 AM CD T documented as of this encounter Care Teams Music Promoter Relationship Specialty Start Date End Date Aydee Burton, PCP - General Nurse Practitioner - 05/17/21 CHANGE LEAD LOCKSMITH Family [address] [place], [place] [phone] Aydee Burton, Assigned PCP 04/28/21 CHANGE LEAD LOCKSMITH [address] [place], [place] [phone] Louisa Hood, Assigned Neuroscience 07/11/21 CHANGE LEAD LOCKSMITH Provider [address] [place], [place] [phone] Se Levy, Lead Marshmallow Runner 08/05/21 05/12/22 Clari Francois Pharmacist Pharmacist 08/06/21 [facility]/07[facility] [address] [place], [place] [phone] [place], Assigned Sleep 08/01/21 Angel Turcios, Provider [address] [place], [place] [address] Lesly Celaya MD Assigned Surgical 09/05/21 [address] Provider [place], [place] [address] Tawana Patel MA [facility] 09/30/21 Worker Ramses Mcpherson Assigned OBGYN 11/07/21 MD Onesimo Provider [address] [place] [address] Obdulio Barrera MD Critical Care 01/24/[address] [place] [phone] Obdulio Barrera, Assigned Pulmonology 02/06/[address] [address] Lesvia Stanley, GHADA Cardiac Rehabilitation 03/03/22 03/03/23 [facility] Therapist [address] [address] Marilia Deluna, PhD Assigned Behavioral 02/20/22 [address] [facility] [place] [place] [address] Niyah Decker, [facility] Pharmacist Pharmacist 03/07/22 420 [facility] 812 [place] [address] Clari Poole, Pharmacist Pharmacist 03/07/22 06/15/22 [facility] [address] [facility] [place] [address] Lesvia Stanley, GHADA Cardiac Rehabilitation 03/17/22 03/17/23 [facility] Therapist [address] [address] Mago Swift DIRECTOR SURFACE TRANSPORTATION Lead Marshmallow Runner Floor Worker - 08/05/21 Clinical documented as of this encounter
--- OUTSIDE RECORDS SUMMARY | 2022-10-21 08:54 | XMS_ITS | Encounter Summary ---
:1980 Author Organization [place] Address [address] [place] [address] Care Team Providers Name Role Phone Aydee Burton SIEBEL ADMINISTRATOR ADVERTISING ASSOCIATE Primary Care Provider Aydee Burton SIEBEL ADMINISTRATOR ADVERTISING ASSOCIATE Unavailable [phone] Louisa Hood SIEBEL ADMINISTRATOR ADVERTISING ASSOCIATE Unavailable [phone] Se Levy [facility] Unavailable Unavailable Clari Ruiz [facility] Unavailable [phone] Angel Hannah MD Unavailable Lesly Celaya MD Unavailable Tawana Patel MA Unavailable Unavailable Ramses Mcpherson MD Unavailable [phone] Obdulio Barrera MD Unavailable [phone] Obdulio Barrera MD Unavailable [phone] Lesvia Stanley Unavailable Marilia Deluna PhD Unavailable Niyah Decker [facility] Unavailable DelmiClari bhakta [facility] Unavailable Betheaeswalter Satnana Unavailable JosephClari [facility] Unavailable JamisonMago [facility] Unavailable Encounter Details Date Type Department Care Team Description 04/07/2022 Virtual Visit [facility] Marilia Deluna Bil ateral occipital neuralgia (Primary Dx); Pain Management PhD Upper back pain; [place] [phone] [place] [address] Chronic tension-type headache, not intra ctable [address] [place], [place] [address] [address] [place] [address] Social History Tobacco Use Types [...] How often do you attend restorationist or jainism services? 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/2021 7:53 PM FILM LIBRARY CLERK COVID-19 Exposure Response Date Recorded In the last 10 days, have you been in contact with No / Unsu re 04/28/2022 10:30 AM CDT someone who was confirmed or suspected to have Coronavirus/COVID-19? documented as of this encounter Progress Notes Marilia Deluna - 04/07/2022 3:00 PM CDT [place] [...] invitation sent by: Text to cell phone: .[phone]} Video Start Time: 3:00 PM Additional provider [...] we ask that you call us at [phone] at [phone] hours in advance to cancel.This will allow us to offer the appointment time to another patient. ?? Multiple missed appointments may lead to dismissal from the clinic. Video-Visit Details Type of service: Video Visit Video End Time (time video stopped): 3:41 PM Originating Location (pt. Location): Home Distant Location (provider location): [facility] Mode of Communication: Video Conference via [facility] Marilia Deluna PsyD LP Licensed Psychologist Outpatient Clinic Therapist [facility] Pain Management documented in this encounter Plan of Treatment Upcoming Encounters Date Type Specialty Care Team Description 10/21/2022 Office Visit Pulmonology Obdulio Barrera MD [address] [place] [address] (Estefanía casanova) 10/25/2022 PRE VISIT Charo Carter MD Previsit [address] [place] [address] (Estefanía casanova) 10/25/2022 Office Visit Charo Carter MD [address] [place] [address] [phone] (Estefanía casanova) 10/25/2022 Office Visit ENT Provider, Jeannette Ent Dysphonia Cathode Ray Tube Assembler 10/25/2022 Virtual Visit Pain & Palliative Care [place] [address] [place], [place] [address] 10/28/2022 Appointment Speech Therapy Anabel Chew, FUR PULLER [address] [phone] (Wo rk) 11/17/2022 Appointment Speech Therapy Anabel Chew FUR PULLER [address] 403255 (Wo rk) 12/01/2022 Office Visit Pain & [place] [address] [place], [place] [address] (Wo rk) 12/23/2022 Office Visit Neurology Colby Yeung MD [address] [place] [address] (Wo rk) documented as of this encounter Procedures Procedure Name Priority Date/Time Associated Diagnosis Comme nts [facility] Routine 04/07/2022 3:45 PM CDT [...] documented as of this encounter Care Teams Graining Operator Relationship Specialty Start Date End Date Aydee Burton, PCP - General Nurse Practitioner - 05/17/21 SIEBEL ADMINISTRATOR ADVERTISING ASSOCIATE Family [address] [place] [address] [phone] Aydee Burton, Assigned PCP 04/28/21 SIEBEL ADMINISTRATOR [address] [phone] Louisa Hood, Assigned Neuroscience 07/11/21 SIEBEL ADMINISTRATOR ADVERTISING ASSOCIATE Provider 500 [place] [address] Se Levy, Lead Director Regulatory Compliance 08/05/21 05/12/22 CHARTER BOAT OPERATORClari Ordonez Pharmacist Pharmacist 08/06/21 06/07/22 Jocelyn, [facility] [address] [place] [address] [place], Assigned Sleep 08/01/21 Angel Turcios, Provider [address] [place] [address] Lesly Celaya MD Assigned Surgical 09/05/21 [address] [facility] [place] [address] Tawana Patel [facility] 09/30/21 Worker Ramses Mcpherson Assigned OBGYN 11/07/21 MD Onesimo Provider [address] [place] [address] Obdulio Barrera MD Critical Care 01/24/[address] [place] [address] Obdulio Barrera, Assigned Pulmonology 02/06/[address] [place] [address] [phone] Lesvia Stanley EP Cardiac Rehabilitation 03/03/22 03/03/23 [facility] Therapist [address] [place] [address] Marilia Deluna, PhD Assigned Behavioral 02/20/22 [address] [facility] [place] [address] Niyah Decker, [facility] Pharmacist Pharmacist 03/07/22 420 [facility] 812 [place], [place] [phone] Clari Poole, Pharmacist Pharmacist 03/07/22 06/15/22 [facility] [address] [facility] [address] [place] [phone] Lesvia Stanley EP Cardiac Rehabilitation 03/17/22 03/17/23 [facility] Therapist [address] [place] [address] Clari Ruiz Assigned [place] 04/09/22 05/27/22 Jocelyn [facility] Pharmacist [address] [place], [place] [address] Mago Swift, [facility] Lead Director Regulatory Compliance Field Investigator - 08/05/21 Clinical documented as of this encounter
--- OUTSIDE RECORDS SUMMARY | 2022-10-21 08:54 | XMS_ITS | Encounter Summary ---
:1980 Author Organization [place] Address [address] [place] [address] Care Team Providers Name Role Phone Aydee Burton PHP WORDPRESS DEVELOPER ACCOUNTANT COST Primary Care Provider Aydee Burton PHP WORDPRESS DEVELOPER ACCOUNTANT COST Unavailable [phone] Louisa Hood PHP WORDPRESS DEVELOPER ACCOUNTANT COST Unavailable [phone] Se Levy [facility] Unavailable Unavailable Clari Ruiz [facility] Unavailable [phone] Angel Hannah MD Unavailable Lesly Celaya MD Unavailable Tawana Patel MA Unavailable Unavailable Ramses Mcpherson MD Unavailable [phone] Obdulio Barrera MD Unavailable [phone] Obdulio Barrera MD Unavailable [phone] Lesvia Stanley Unavailable Marilia Deluna PhD Unavailable Niyah Decker [facility] Unavailable Clari Poole [facility] Unavailable JadenCarlitoswalter Santana Unavailable JamisonMago [facility] Unavailable Reason for Visit Reason Comments Lab Only Encounter Details Date Type Department Care Team Description 04/05/2022 Allied Health/Nurse [facility] Lab Only (/) Visit [address] [phone] Social History Tobacco Use Types Packs/Day [...] How often do you attend sikhism or sabianist services? Never 08/05/2021 Do you [...] at Date Recorded Female 11/09/2021 7:53 PM BELT BUILDER HELPER COVID-19 Exposure Response Date Recorded In [...] obtained, sent to lab. Jasson Luo RN [facility] Triage documented in this encounter Miscellaneous Notes Result Encounter Note - Aydee Burton APRN CNP - 04/05/2022 2:00 PM CDT Neg pertussis in another note. TARA [facility] documented in this encounter Plan of Treatment Upcoming Encounters Date Type Specialty Care Team Description 10/21/2022 Office Visit Pulmonology Obdulio Barrera MD [address] [address] (Estefanía casanova) 10/25/2022 PRE VISIT ENT Charo Burton MD Previsit 9 [place], [place] [address]65 (Estefanía casanova) 10/25/2022 Office Visit Charo Carter MD [address] [place] [address] [phone] (Estefanía casanova) 10/25/2022 Office Visit ENT Provider, Jeannette Ent Dysphonia Assistant Track Coach 10/25/2022 Virtual Visit Pain & Palliative [place] [address] [place], [place] [address] 10/28/2022 Appointment Speech Therapy Anabel Chew, RESEARCH PROGRAM MANAGER [address] [address] (Wo rk) 11/17/2022 Appointment Speech Therapy Anabel Chew, RESEARCH PROGRAM MANAGER [address] [phone] (Wo rk) 12/01/2022 Office Visit Pain & [place] [address] [place], [place] [address] (Wo rk) 12/23/2022 Office Visit Neurology Colby Yeung MD [address] [place] [address] (Wo rk) documented as of this encounter Procedures Procedure Name Priority Date/Time Associated Comments Diagnosis BORDETELLA PERTUSSIS Routine 04/05/2022 2:09 PM Chronic cough Results for this PARAPERTUSSIS, PCR CDT procedure are in the results section. documented in this encounter Results B. pertussis/parapertussis PCR-HVAC MECHANICAL ENGINEER (04/05/2022 2:09 PM CDT) [facility] Method Time Signature Bordetella Not Detected [...] LABORATORY - 04/06/2022 10:34 AM CDT [employer] Molecular Simplexa (TM) Bor detella Direct assay is a FDA-approved, real-time PCR test for the qualitative d etection and differentiation of Bordetella pertussis and Bordetella parapertussis i n nasopharyngeal swabs. Testing is performed by the Infect[facility] of [facility]. This test is used for clinical purposes. It should no t be regarded as investigational or for research. This laboratory is certified u nder the Clinical Laboratory Improvement Amendments of 1988 (CLIA-88) as qualifie d to perform high complexity clinical laboratory testing. Aydee Burton PHP WORDPRESS DEVELOPER ACCOUNTANT COST LAB - MICRO GENERAL PRASHANTH CORDERO Performing Organization Address City/State/ZIP Code Phon e Number [facility] [place] [address] Diag. Lab [address] [facility], Room [address]297 documented in this encounter Visit Diagnoses Diagnosis Chronic cough Cough documented in this encounter Additional Health Concerns Infection Onset Date Last Indicated Resolved Time Rule Out Pertussis 04/05/2022 04/05/2022 04/06/2022 10 :34 AM CDT Assessment Noted Time PHQ-9 Depression Total Score: 16 03/25/2022 7:29 AM CD T documented as of this encounter Care Teams Marketing Analytics Manager Relationship Specialty Start Date End Date Aydee Burton, PCP - General Nurse Practitioner - 05/17/21 PHP WORDPRESS DEVELOPER ACCOUNTANT COST Family [address] [place], [place] [address] Aydee Burton, Assigned PCP 04/28/21 PHP WORDPRESS DEVELOPER ACCOUNTANT COST [address] [place] [address] Louisa Hood, Assigned Neuroscience 07/11/21 PHP WORDPRESS DEVELOPER ACCOUNTANT COST Provider 500 [place] [address] Se Levy, Lead Official Court Reporter 08/05/21 05/12/22 Clari Francois Pharmacist Pharmacist 08/06/21 06/07/22 JORDAN Banks [address] [place], [place] [address] [place], Assigned Sleep 08/01/21 Angel Turcios, Provider [address] [place], [place] [address] Lesly Celaya MD Assigned Surgical 09/05/21 [address] [facility] Provider [place], [place] [address] Tawana Patel [facility] 09/30/21 Worker Ramses Mcpherson Assigned OBGYN 11/07/21 MD Onesimo Provider [address] [place], [place] [address] Obdulio Barrera MD Critical Care 01/24/[address] [place] [address] 276 [place], [place] [address]285 Obdulio Barrera, Assigned Pulmonology 02/06/22 MD Provider [address] [place] [address] 276 [place] [address] Lesvia Stanley, GHADA Cardiac Rehabilitation 03/03/22 03/03/23 [facility] Therapist [address] [facility] [facility] [address] [place], [place] [address] Marilia Deluna, PhD Assigned Behavioral 02/20/22 [address] [facility] Provider [place], [place] [phone] Niyah Decker, [facility] Pharmacist Pharmacist 03/07/22 420 [facility] 812 [place], [place] [address] Clari Poole, Pharmacist Pharmacist 03/07/22 06/15/22 [facility] [address] [facility] [facility] [address] [place], [place] [phone] Lesvia Stanley EP Cardiac Rehabilitation 03/17/22 03/17/23 [facility] Therapist [address] [address] Mago Swift, [facility] Lead Official Court Reporter Phosphoric Acid Supervisor - 08/05/21 Clinical documented as of this encounter
--- OUTSIDE RECORDS SUMMARY | 2022-10-21 08:54 | XMS_ITS | Encounter Summary ---
:1980 Author Organization [place] Address [address] [place] [address] Care Team Providers Name Role Phone Aydee Burton SERVER SERVICE ASSISTANT TRAINING AND DEVELOPMENT DIRECTOR Primary Care Provider Aydee Burton SERVER SERVICE ASSISTANT TRAINING AND DEVELOPMENT DIRECTOR Unavailable [phone] Louisa Hood SERVER SERVICE ASSISTANT TRAINING AND DEVELOPMENT DIRECTOR Unavailable [phone] Se Levy [facility] Unavailable Unavailable Clari Ruiz [facility] Unavailable [phone] Angel Hannah MD Unavailable Lesly Celaya MD Unavailable Tawana Patel MA Unavailable Unavailable Ramses Mcpherson MD Unavailable [phone] Obdulio Barrera MD Unavailable [phone] Obdulio Barrera MD Unavailable [phone] Lesvia Stanley Unavailable Marilia Deluna PhD Unavailable Niyah Decker [facility] Unavailable Clari Poole [facility] Unavailable JadenCarlitoswalter Santana Unavailable JamisonMago [facility] Unavailable Reason for Visit Rehab Therapy Cardiac Therapy (Routine: Next available opening) - Authorized Specialty Diagnoses / Procedures Referred By Contact Refer red To Contact CARDIAC REHAB Diagnoses Asthma SOB (shortness of breath) [facility] [address] [facility] [place] [address] Phone: Referral ID Status Reason Start Date Expiration Date Visits V isits Requested Authorized [id number] Authorized 11/13/2021 11/12/2022 365 365 Encounter Details Date Type Department Care Team Description 03/31[facility]2022 [facility] 420 [facility] 276 [place] [address] Cardiac and Pulmonary 1, Rh Pulmonary Rehab Rehabilitation [address] [place] [address] Social History Tobacco Use Types [...] often do you attend roman catholic or congregational services? 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 fluticasone (FLONASE) [place] 2 sprays into 18.2 mL 0 03/0804/05/2022 [...] Office Visit Pulmonology Obdulio Barrera MD [address] 6[address] (Wo rk) 10/25/2022 PRE VISIT ENT Charo Burton MD Previsit [address] [place] [phone] (Wo rk) 10/25/2022 Office Visit Charo Carter MD [address] [place] [phone] (Estefanía rk) 10/25/2022 Office Visit ENT Provider, Jeannette Ent Dysphonia Pickler Helper 10/25/2022 Virtual Visit Pain & [place]iative [place] [address] [place], [place] [address] 10/28/2022 Appointment Speech Therapy Anabel Chew, ORGANIZATIONAL EFFECTIVENESS CONSULTANT [address] [address] (Wo rk) 11/17/2022 Appointment Speech Therapy Anabel Chew, ORGANIZATIONAL EFFECTIVENESS CONSULTANT [address] [address] (Wo rk) 12/01/2022 Office Visit Pain & [place] [address] [place], [place] [address] (Wo rk) 12/23/2022 Office Visit Neurology Colby Yeung MD [address] [place] [address] (Wo rk) documented as of this encounter Visit Diagnoses Not on filedocumented in this encounter Additional Health Concerns Assessment Noted Time PHQ-9 Depression Total Score: 16 03/25/2022 7:29 AM CD T documented as of this encounter Care Teams Caterer'S Aide Relationship Specialty Start Date End Date Aydee Burton, PCP - General Nurse Practitioner - 05/17/21 SERVER SERVICE ASSISTANT TRAINING AND DEVELOPMENT DIRECTOR Family [address] [place] [phone] Aydee Burton, Assigned PCP 04/28/21 SERVER SERVICE ASSISTANT TRAINING AND DEVELOPMENT DIRECTOR [address] [place] [phone] Louisa Hood, Assigned Neuroscience 07/11/21 SERVER SERVICE ASSISTANT TRAINING AND DEVELOPMENT DIRECTOR Provider [address] [place] [address] [phone] Se Levy, Lead Vehicle Assembler 08/05/21 05/12/22 Clari Francois Pharmacist Pharmacist 08/06/21 06/07/22 Jocelyn [facility] [address] [place] [address] [place], Assigned Sleep 08/01/21 Angel Turcios, Provider [address] [place] [address] Lesly Celaya MD Assigned Surgical 09/05/21 [address] [place] [address] Tawana Patel MA [facility] 09/30/21 Worker Ramses Mcpherson Assigned OBGYN 11/07/21 MD Onesimo Provider [address] [place] [address] Obdulio Barrera MD Critical Care 01/24/[address] [place] [address] 276 [place] [address] Obdulio Barrera, Assigned Pulmonology 02/06/22 MD Provider [address] [place] [address] 276 [place], [place] [address] Lesvia Stanley EP Cardiac Rehabilitation 03/03/22 03/03/23 [facility] Therapist [address] [facility] [address] [place], [place] [address] Marilia Deluna, PhD Assigned Behavioral 02/20/22 [address] [facility] Provider [place], [place] [phone] Niyah Decker, [facility] Pharmacist Pharmacist 03/07/22 420 [facility] 812 [place], [place] [phone] lCari Poole, Pharmacist Pharmacist 03/07/22 06/15/22 [facility] [address] [facility] [address] [place] [address] Lesvia Stanley EP Cardiac Rehabilitation 03/17/22 03/17/23 [facility] Therapist [address] [address] Mago Swift [employer] Lead Vehicle Assembler Tire Shop Manager - 08/05/21 Clinical documented as of this encounter
--- OUTSIDE RECORDS SUMMARY | 2022-10-21 08:54 | XMS_ITS | Encounter Summary ---
:1980 Author Organization [place] Address [address] [place] [address] Care Team Providers Name Role Phone Aydee Burton TICKET COLLECTOR OR USHER TELEPHONE CLERK Primary Care Provider Aydee Burton TICKET COLLECTOR OR USHER TELEPHONE CLERK Unavailable [phone] Louisa Hood TICKET COLLECTOR OR USHER TELEPHONE CLERK Unavailable [phone] Se Levy [facility] Unavailable Unavailable Clari Ruiz [facility] Unavailable [phone] Angel Hannah MD Unavailable Lesly Celaya MD Unavailable Tawana Patel MA Unavailable Unavailable Ramses Mcpherson MD Unavailable [phone] Obdulio Barrera MD Unavailable [phone] Obdulio Barrera MD Unavailable [phone] Lesvia Stanley Unavailable Marilia Deluna PhD Unavailable Niyah Decker [facility] Unavailable Clari Poole [facility] Unavailable KandiLesvia moonn Unavailable JamisonMago [facility] Unavailable Reason for Visit Reason Comments acp Encounter Details Date Type Department Care Team Description 04/04/2022 Documentation Only Honoring Choices Luly Mcintyre [facility] [address] [facility] [address] [place] [phone] Social History Tobacco Use Types Packs/Day Years [...] How often do you attend advent or latter day services? Never 08/05/2021 Do [...] at Date Recorded Female 11/09/2021 7:53 PM EIGHT SECTION BLOWER COVID-19 Exposure Response Date Recorded In the last 10 days, have you been in contact with No / Unsu re 03/31/2022 11:55 AM CDT someone who was confirmed or suspected to have Coronavirus/COVID-19? documented as of this encounter Plan of Treatment Upcoming Encounters Date Type Specialty Care Team Description 10/21/2022 Office Visit Pulmonology Obdulio Barrera MD [address] [place] [phone] (Wo rk) 10/25/2022 PRE VISIT ENT Charo Burton MD Previsit [address] [place] [phone] (Wo rk) 10/25/2022 Office Visit ENT Charo Burton MD [address] [place] [address] (Wo rk) 10/25/2022 Office Visit ENT Provider, Ent Dysphonia Pad Extraction Tender 10/25/2022 Virtual Visit Pain & Palliative Care Marilia Del[place] [address] [place], [place] [address] 10/28/2022 Appointment Speech Therapy Anabel Chew, AGRICULTURAL EQUIPMENT DESIGN ENGINEER [address] [phone] (Wo rk) 11/17/2022 Appointment Speech Therapy Anabel Chew, AGRICULTURAL EQUIPMENT DESIGN ENGINEER [address] [phone] (Wo rk) 12/01/2022 Office Visit Pain & [place] [address] [place], [place] [address] (Wo rk) 12/23/2022 Office Visit Neurology Colby Yeung MD [address] [place] [address] (Wo rk) documented as of this encounter Visit Diagnoses Not on filedocumented in this encounter Additional Health Concerns Assessment Noted Time PHQ-9 Depression Total Score: 16 03/25/2022 7:29 AM CD T documented as of this encounter Care Teams Reed Cleaner Relationship Specialty Start Date End Date Aydee Burton, PCP - General Nurse Practitioner - 05/17/21 TICKET COLLECTOR OR USHER TELEPHONE CLERK Family [address] [place] [address] Aydee Burton, Assigned PCP 04/28/21 TICKET COLLECTOR OR USHER TELEPHONE CLERK [address] [place] [address] Louisa Hood, Assigned Neuroscience 07/11/21 TICKET COLLECTOR OR USHER TELEPHONE CLERK Provider 500 [place], [place] [phone] Se Levy, Lead Concrete Pipe Maker 08/05/21 05/12/22 Clari Francois Pharmacist Pharmacist 08/06/21 06/07/22 Jcoelyn, [facility] [address] [place], [place] [phone] [place], Tone Sleep 08/01/21 Angel Turcios, Provider [address] [place], [place] [address] Lesly Celaya MD Assigned Surgical 09/05/21 [address] Provider [place], [place] [phone] Tawana Patel MA [facility] 09/30/21 Worker Ramses Mcpherson Assigned OBGYN 11/07/21 MD Onesimo Provider [address] [place] [address] Obdulio Barrera MD Critical Care 01/24/22 420 [facility] 276 [place], [place] [phone] Obdulio Barrera, Assigned Pulmonology 02/06/22 MD Provider 420 [facility] 276 [place] [address] Lesvia Stanley, GHADA Cardiac Rehabilitation 03/03/22 03/03/23 [facility] Therapist [address] [id number] Marilia Deluna, PhD Assigned Behavioral 02/20/22 [address] [facility] [place] [address] Niyah Decker, [facility] Pharmacist Pharmacist 03/07/22 420 [facility] 812 [place] [address] Clari Poole, Pharmacist Pharmacist 03/07/22 06/15/22 [facility] [address] [place] [address] [place] [address] Lesvia Stanley, GHADA Cardiac Rehabilitation 03/17/22 03/17/23 [facility] Therapist [address] [address] Mago Swift, [facility] Lead Concrete Pipe Maker Child And Family Counselor - 08/05/21 Clinical documented as of this encounter
--- OUTSIDE RECORDS SUMMARY | 2022-10-21 08:54 | XMS_ITS | Encounter Summary ---
:1980 Author Organization [place] Address [address] [place] [address] Care Team Providers Name Role Phone Aydee Burton TEST CELL TECHNICIAN COMMUNITY DEVELOPMENT DIRECTOR Primary Care Provider Aydee Burton TEST CELL TECHNICIAN COMMUNITY DEVELOPMENT DIRECTOR Unavailable [phone] Louisa Hood TEST CELL TECHNICIAN COMMUNITY DEVELOPMENT DIRECTOR Unavailable [phone] Se Levy [facility] Unavailable Unavailable Clari Ruiz [facility] Unavailable [phone] Angel Hannah MD Unavailable Lesly Celaya MD Unavailable Tawana Patel MA Unavailable Unavailable Ramses Mcpherson MD Unavailable [phone] Obdulio Barrera MD Unavailable [phone] Obdulio Barrera MD Unavailable [phone] Lesvia Stanley Unavailable Marilia Deluna PhD Unavailable Niyah Decker [facility] Unavailable Clari Poole [facility] Unavailable JadenCarlitoswalter Santana Unavailable JamisonMago [facility] Unavailable Encounter Details Date Type Department [...] at Date Recorded Female 11/09/2021 7:53 PM SLITTER CREASER SLOTTER HELPER COVID-19 Exposure Response Date Recorded In the last 10 days, have you been in contact with No / Unsu re 04/05/2022 2:00 PM CDT someone who was confirmed or suspected to have Coronavirus/COVID-19? documented as of this encounter Plan of Treatment Upcoming Encounters Date Type Specialty Care Team Description 10/21/2022 Office Visit Pulmonology Obdulio Barrera MD [address] 928345 (Wo rk) 10/25/2022 PRE VISIT ENT Charo Burton MD Previsit [address] [place] [phone] (Wo rk) 10/25/2022 Office Visit ENT Charo Burton MD [address] [place] [address] [phone] (Wo rk) 10/25/2022 Office Visit ENT Provider, Ent Dysphonia Business Line Controller 10/25/2022 Virtual Visit Pain & Palliative [place] [address] [place], [place] [address] 10/28/2022 Appointment Speech Therapy Anabel Chew, AIR POLLUTION AUDITOR [address] [place], [place] [address] (Wo rk) 11/17/2022 Appointment Speech Therapy Anabel Chew, AIR POLLUTION AUDITOR [address] [address]3765 (Wo rk) 12/01/2022 Office Visit Pain [place] [address] [place], [place] [address] (Wo rk) 12/23/2022 Office Visit Neurology Colby Yeung MD [address] [address] (Wo rk) documented as of this encounter Visit Diagnoses Not on filedocumented in this encounter Additional Health Concerns Infection Onset Date Last Indicated Resolved Time Rule Out Pertussis 04/05/2022 04/05/2022 04/06/2022 10 :34 AM CDT Assessment Noted Time PHQ-9 Depression Total Score: 16 03/25/2022 7:29 AM CD T documented as of this encounter Care Teams Boring Mill Set Up Operator Relationship Specialty Start Date End Date Aydee Burton, PCP - General Nurse Practitioner - 05/17/21 TEST CELL TECHNICIAN COMMUNITY DEVELOPMENT DIRECTOR Family [address] [place], [place] [phone] Aydee Burton, Assigned PCP 04/28/21 TEST CELL TECHNICIAN COMMUNITY DEVELOPMENT DIRECTOR [address] [place], [place] [address] Louisa Hood, Assigned Neuroscience 07/11/21 TEST CELL TECHNICIAN COMMUNITY DEVELOPMENT DIRECTOR Provider 500 [place], [place] [address] Se Levy, Lead Motion Picture Narrator 08/05/21 05/12/22 Clari Francois Pharmacist Pharmacist 08/06/21 [facility]/07/22 [facility] [address] [place], [place] [address] [place], Tone Sleep 08/01/21 Angel Turcios, Provider [address] [place], [place] [phone] Lesly Celaya MD Assigned Surgical 09/05/21 [address] Provider [place], [place] [address] Tawana Patel MA [facility] 09/30/21 Worker Ramses Mcpherson Assigned OBGYN 11/07/21 MD Onesimo Provider [address] [place], [place] [phone] Obdulio Barrera MD Critical Care 01/24/22 420 [facility] 276 [place], [place] [phone] Obdulio Barrera, Assigned Pulmonology 02/06/22 MD Provider 420 [facility] 276 [place], [place] [address] Lesvia Stanley, GHADA Cardiac Rehabilitation 03/03/22 03/03/23 [facility] Therapist [address] [phone] Marilia Deluna, PhD Assigned Behavioral 02/20/22 [address] [facility] [place] [address] Niyah Decker, [facility] Pharmacist Pharmacist 03/07/22 420 [facility] 812 [place] [address] Clari Poole, Pharmacist Pharmacist 03/07/22 06/15/22 [facility] [address] [place] [address] Lesvia Stanley, GHADA Cardiac Rehabilitation 03/17/22 03/17/23 [facility] Therapist [address] [address] Mago Swift, [facility] Lead Motion Picture Narrator Senior Cisco Network Engineer - 08/05/21 Clinical documented as of this encounter
--- OUTSIDE RECORDS SUMMARY | 2022-10-21 08:54 | XMS_ITS | Encounter Summary ---
:1980 Author Organization [place] Address [address] [place] [address] Care Team Providers Name Role Phone Aydee Burton WELDER PRODUCTION LINE GAS HOME LENDING OFFICER Primary Care Provider Aydee Burton WELDER PRODUCTION LINE GAS HOME LENDING OFFICER Unavailable [phone] Louisa Hood WELDER PRODUCTION LINE GAS HOME LENDING OFFICER Unavailable [phone] Se Levy [facility] Unavailable Unavailable Clari Ruiz [facility] Unavailable [phone] Angel Hannah MD Unavailable Lesly Celaya MD Unavailable Tawana Patel MA Unavailable Unavailable Ramses Mcpherson MD Unavailable [phone] Obdulio Barrera MD Unavailable [phone] Obdulio Barrera MD Unavailable [phone] Lesvia Stanley Unavailable Marilia Deluna PhD Unavailable Niyah Decker [facility] Unavailable Clari Poole [facility] Unavailable JadenCarlitoswalter Santana Unavailable JamisonMago CARTHAGE [...] How often do you attend sikhism or advent services? Never 08/05/2021 Do you [...] at Date Recorded Female 11/09/2021 7:53 PM CASE ASSEMBLER COVID-19 Exposure Response Date Recorded In the last 10 days, have you been in contact with No / Unsu re 03/29/2022 2:27 PM CDT someone who was confirmed or suspected to have Coronavirus/COVID-19? documented as of this encounter Plan of Treatment Upcoming Encounters Date Type Specialty Care Team Description 10/21/2022 Office Visit Pulmonology Obdulio Barrera MD [address] [phone] (Wo rk) 10/25/2022 PRE VISIT ENT Charo Burton MD Previsit [address] [place] [address] [id number] (Wo rk) 10/25/2022 Office Visit ENT Charo Burton MD [address] [place] [address] [phone] (Wo rk) 10/25/2022 Office Visit ENT Provider, Ent Dysphonia Cut Off Man 10/25/2022 Virtual Visit Pain & Palliative Care Marilia Deluna, PhD [address] [place], [place] [address] 10/28/2022 Appointment Speech Therapy Anabel Chew, HOOP COILING MACHINE OPERATOR [address] [phone] (Wo rk) 11/17/2022 Appointment Speech Therapy Anabel Chew, HOOP COILING MACHINE OPERATOR [address] [phone] (Wo rk) 12/01/2022 Office Visit Pain & [place] [address] [place], [place] [address] (Wo rk) 12/23/2022 Office Visit Neurology Colby Yeung MD [address] [address] (Wo rk) documented as of this encounter Visit Diagnoses Not on filedocumented in this encounter Additional Health Concerns Assessment Noted Time PHQ-9 Depression Total Score: 16 03/25/2022 7:29 AM CD T documented as of this encounter Care Teams Bank Boss Relationship Specialty Start Date End Date Aydee Burton, PCP - General Nurse Practitioner - 05/17/21 WELDER PRODUCTION LINE GAS HOME LENDING OFFICER Family [address] [place], [place] [phone] Aydee Burton, Assigned PCP 04/28/21 WELDER PRODUCTION LINE GAS HOME LENDING OFFICER [address] [place], [place] [phone] Louisa Hood, Assigned Neuroscience 07/11/21 WELDER PRODUCTION LINE GAS HOME LENDING OFFICER Provider [address] [place], [place] [phone] Se Levy, Lead Herbarium Worker 08/05/21 05/12/22 Clari Francois Pharmacist Pharmacist 08/06/21 06/07/22 [facility] [address] [place], [place] [phone] [place], Assigned Sleep 08/01/21 Angel Turcios, Provider [address] [place], [place] [address] Lesly Celaya MD Assigned Surgical 09/05/21 [address] Provider [place], [place] [address] Tawana Patel MA [facility] 09/30/21 Worker Ramses Mcpherson Assigned OBGYN 11/07/21 MD Onesimo Provider [address] [place] [address] Obdulio Barrera MD Critical Care 01/24/[address] [place] [address] [phone] Obdulio Barrera, Assigned Pulmonology 02/06/[address] [address] Lesvia Stanley, GHADA Cardiac Rehabilitation 03/03/22 03/03/23 [facility] Therapist [address] [phone] Marilia Deluna, PhD Assigned Behavioral 02/20/22 [address] [facility] [place] [address] Niyah Decker, [facility] Pharmacist Pharmacist 03/07/22 420 [facility] [address] [place] [address] Clari Poole, Pharmacist Pharmacist 03/07/22 06/15/[address] [facility] [address] [facility] [place] [address] Lesvia Stanley, GHADA Cardiac Rehabilitation 03/17/22 03/17/23 [facility] Therapist [address] [id number] Mago Swift PEAR PICKER Lead Herbarium Worker Airplane Electrician - 08/05/21 Clinical documented as of this encounter
--- OUTSIDE RECORDS SUMMARY | 2022-10-21 08:54 | XMS_ITS | Encounter Summary ---
:1980 Author Organization [place] Address [address] [place] [address] Care Team Providers Name Role Phone Aydee Burton GRADER PATROL GILL BOX FIXER Primary Care Provider Aydee Burton GRADER PATROL GILL BOX FIXER Unavailable [phone] Louisa Hood GRADER PATROL GILL BOX FIXER Unavailable [phone] Se Levy [facility] Unavailable Unavailable Clari Ruiz [facility] Unavailable [phone] Angel Hannah MD Unavailable Lesly Celaya MD Unavailable Tawana Patel MA Unavailable Unavailable Ramses Mcpherson MD Unavailable [phone] Obdulio Barrera MD Unavailable [phone] Obdulio Barrera MD Unavailable [phone] Lesvia Stanley Unavailable Marilia Deluna PhD Unavailable Niyha Decker [facility] Unavailable Clari Poole [facility] Unavailable JadenLesvia Esther Unavailable Jamison Mago [facility] Unavailable Reason for Visit Reason Onset Date Comments Patient Request for Note/Letter 04/01/2022 Encounter Details Date Type Department Care Team Description [facility] ELADIO Mendez GILL BOX FIXER Note/Letter [address] [address] [place], [place] [phone] (Wo rk) [address] [phone] Social History Tobacco Use Types Packs/Day Years [...] How often do you attend mosque or gnosticist services? 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 Ziyad Frausto Physician Surgeon Telephone Encounter - Aydee Burton APRN CNP - 04/01/2022 10:45 AM CDT Images from the original note were not included. Note done for 8 hours shifts with breaks and lifting restrictions its in her mychart. Please help her set up Follow up virtual is fine 04/08/22. Can I please also get records from her ENT and sheet metal supervisor. MARINO Spivey Telephone Encounter - Ziyad Frausto - 04/01/2022 10:18 AM CDT Reason for [...] Visit Pulmonology Obdulio Barrera MD [address] [phone] (Wo rk) 10/25/2022 PRE VISIT ENT Charo Burton MD Previsit [address] [place] [phone] (Wo rk) 10/25/2022 Office Visit ENT Charo Burton MD [address] [place] [phone] (Wo rk) 10/25/2022 Office Visit ENT Provider, Ent Dysphonia Actuary Manager 10/25/2022 Virtual Visit Pain & Palliative [place] [address] [place], [place] [address] 10/28/2022 Appointment Speech Therapy Anabel Chew, IMCU NURSE [address] [address] (Wo rk) 11/17/2022 Appointment Speech Therapy Anabel Chew, IMCU NURSE [address] [phone] (Wo rk) 12/01/2022 Office Visit Pain & [place] [address] [place], [place] [address] (Wo rk) 12/23/2022 Office Visit Neurology Colby Yeung MD [address] [facility] [address] (Wo rk) documented as of this encounter Visit Diagnoses Not on filedocumented in this encounter Additional Health Concerns Assessment Noted Time PHQ-9 Depression Total Score: 16 03/25/2022 7:29 AM CD T documented as of this encounter Care Teams Underground Utility Locator Relationship Specialty Start Date End Date Aydee Burton, PCP - General Nurse Practitioner - 05/17/21 GRADER PATROL GILL BOX FIXER Family [address] [place] [address] Aydee Burton, Assigned PCP 04/28/21 GRADER PATROL GILL BOX FIXER [address] [place] [address] Louisa Hood, Assigned Neuroscience 07/11/21 GRADER PATROL GILL BOX FIXER Provider [address] [place], [place] [phone] Se Levy, Lead Rotary Drum Dyer 08/05/21 05/12/22 Clari Francois Pharmacist Pharmacist 08/06/21 06/07/22 Jocelyn, [facility] [address] [place] [address] [place], Assigned Sleep 08/01/21 Angel Turcios Provider [address] [place] [address] Lesly Celaya MD Assigned Surgical 09/05/21 [address] Provider [place], [place] [phone] Tawana Patel MA [facility] 09/30/21 Worker Ramses Mcpherson Assigned OBGYN 11/07/21 MD Onesimo Provider [address] [place] [address] Obdulio Barrera MD Critical Care 01/24/[address] [place] [address] 276 [place] [address] Obdulio Barrera, Assigned Pulmonology 02/06/22 MD Provider [address] [place] [address] 276 [place], [place] [address] Lesvia Stanley, GHADA Cardiac Rehabilitation 03/03/22 03/03/23 [facility] Therapist [address] [id number] Marilia Deluna, PhD Assigned Behavioral 02/20/22 [address] [facility] [place] [place] [address] Niyah Decker, [facility] Pharmacist Pharmacist 03/07/[address] [place] [address] 812 [place] [address] Clari Poole, Pharmacist Pharmacist 03/07/22 06/15/22 [facility] [address] [place] [address] Lesvia Stanley, GHADA Cardiac Rehabilitation 03/17/22 03/17/23 [facility] Therapist [address] [phone] Mago Swift, [facility] Lead Rotary Drum Dyer Powder Core Tester - 08/05/21 Clinical documented as of this encounter
--- OUTSIDE RECORDS SUMMARY | 2022-10-21 08:54 | XMS_ITS | Encounter Summary ---
:1980 Author Organization [place] Address [address] [place] [address] Care Team Providers Name Role Phone Aydee Burton HARDWARE DESIGNER FUNDRAISING CONSULTANT Primary Care Provider Aydee Burton HARDWARE DESIGNER FUNDRAISING CONSULTANT Unavailable [phone] Louisa Hood HARDWARE DESIGNER FUNDRAISING CONSULTANT Unavailable [phone] Se Levy [facility] Unavailable Unavailable Clari Ruiz [facility] Unavailable [phone] Angel Hannah MD Unavailable Lesly Celaya MD Unavailable Tawana Patel MA Unavailable Unavailable Ramses Mcpherson MD Unavailable [phone] Obdulio Barrera MD Unavailable [phone] Obdulio Barrera MD Unavailable [phone] Lesvia Stanley Unavailable Marilia Deluna PhD Unavailable Niyah Decker [facility] Unavailable Clari Poole [facility] Unavailable Lesvia Stanley Unavailable JosephClari jay [facility] Unavailable [phone] Israkb Niyah Caro Unavailable Delia Avila Mel [facility] Unavailable [phone] Mandt, Delia Mel RPH Unavailable [phone] Schweivictorino Niyah Caro [facility] Unavailable JamisonMago [facility] Unavailable SchweiNiyah gleason [facility] Unavailable SimonaLeela [facility] Unavailable SchwNiyah grossman [facility] Unavailable Marvin Miranda MD Unavailable Marvin Miranda MD Unavailable Joseph Clari Munguiae [facility] Unavailable Encounter Details Date Type Department Care Team Description 04/04/2022 [facility] Aydee Burton APRN [facility] [address] [place] [address] [address] [place], [place] [address] [place] [address] [phone] (Wo rk) Social History Tobacco Use Types [...] How often do you attend taoist or cheondoism services? 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 documented as of this encounter Miscellaneous Notes Telephone Encounter - Ciara Montejo RN - 04/05/2022 9:54 AM CDT Refill approved/passed per [facility] refill protocol. Ciara Mg RN [facility] Triage documented in this encounter Plan of Treatment Upcoming Encounters Date Type Specialty Care Team Description 10/21/2022 Office Visit Pulmonology Obdulio Barrera MD 420 [facility] 276 [place] [address] (Estefanía casanova) 10/25/2022 PRE VISIT ENT Charo Burton MD Previsit [address] [place] [address] (Wo rk) 10/25/2022 Office Visit ENT Charo Burton MD 909 [place], [place] [phone] (Wo rk) 10/25/2022 Office Visit ENT Provider, Ent Dysphonia Hazardous Material Specialist 10/25/2022 Virtual Visit Pain & Palliative Care [place] [address] [place], [place] [address] 10/28/2022 Appointment Speech Therapy Anabel Chew, UTILITY SPECIALIST [address] 652475 (Wo rk) 11/17/2022 Appointment Speech Therapy Anabel Chew, UTILITY SPECIALIST [address] [phone] (Wo rk) 12/01/2022 Office Visit Pain & [place] [address] [place], [place] [address] (Wo rk) 12/23/2022 Office Visit Neurology Colby Yeung MD [address] [place], [place] [address] (Wo rk) documented as of this encounter [...] documented as of this encounter Care Teams Worm Farmer Relationship Specialty Start Date End Date Aydee Burton PCP - General Nurse Practitioner - 05/17/21 ELADIO Mendez FUNDRAISING CONSULTANT Family [address] [place] [phone] Aydee Burton Assigned PCP 04/28/21 ELADIO Mendez FUNDRAISING CONSULTANT [address] [place], [place] [phone] Louisa Hood Assigned Neuroscience 07/11/21 ELADIO Recinos FUNDRAISING CONSULTANT Provider 500 [place] [address] Se Levy, [place] County Coroner 08/05/21 05/12/22 Clari Francois Pharmacist Pharmacist 08/06/21 06/07/[facility] [address] [place] [address] [place], Assigned Sleep 08/01/21 Angel Turcios, Provider [address] [place] [address] Lesly Celaya MD Assigned Surgical 09/05/21 [address] [place] [address] [facility] 09/30/21 MA Ramses Lazaro Assigned OBGYN 11/07/21 MD Onesimo Provider [address] [place] [address] Obdulio Barrera MD Critical Care 01/24/22 MD Leo [address] [address] Obdulio Barrera Assigned Pulmonology 02/06/22 MD Leo Provider [address] [address] Lesvia Stanley, Cardiac Rehabilitation 03/03/22 03/03/23 EP Therapist [facility] [address] [place] [address] Marilia Deluna, Assigned Behavioral 02/20/22 [facility] Health Provider [address] [place] [address] Niyah Decker, [facility] Pharmacist Pharmacist 03/07/22 420 [facility] 812 [place] [address] Clari Poole, Pharmacist Pharmacist 03/07/22 06/15/22 [facility] [address] [facility] [address] [place], [place] [phone] Lesvia Stanley, Cardiac Rehabilitation 03/17/22 03/17/23 EP Therapist [facility] [address] [place] [address] Clari Ruiz Assigned MTM 04/09/22 05/27/22 Jocelyn [facility] Pharmacist [address] [place] [address] Niyah Warner, [place] Coroner Primary Care - CC 06/27/22 RN Delia Avila Pharmacist Pharmacist 06/07/22 Mel [facility] 9[address] [place] [address] Delia Avila Assigned MTM 06/11/22 06/24/22 Mel [facility] Pharmacist [address] [place] [address] Niyah Decker, [facility] Assigned MTM 05/28/22 06/10/22 420 [facility] Pharmacist [address] [place] [address] Mago Swift, [place] Coroner Clinical Psychiatrist - 08/05/21 [facility] Niyah Decker [facility] Assigned MTM 06/25/22 07/29/22 420 [facility] Pharmacist [address] [place] [address] Leela Jarvis [facility] Pharmacist 07/26/22 05/15/23 [address] [facility] [address] [place] [phone] Niyah Decker [facility] Assigned MTM 08/10/22 09/16/22 420 [facility] Pharmacist [address] [place] [address] Marvin Miranda MD Gastroenterology 09/21/[address] [place] [address] [address] [place] [address] Marvin Miranda, Tone 10/01/22 Gastroenterology [address] [facility] Provider [address] [place], [place] [phone] Clari Ruiz Assigned [place] 09/17/22 Jocelyn [facility] Pharmacist [address] [place] [address] documented as of this encounter
--- OUTSIDE RECORDS SUMMARY | 2022-10-21 08:54 | XMS_ITS | Encounter Summary ---
:1980 Author Organization [place] Address [address] [place] [address] Care Team Providers Name Role Phone Aydee Burton REPAIR SPECIALIST BARREL INSPECTOR Primary Care Provider Aydee Burton REPAIR SPECIALIST BARREL INSPECTOR Unavailable [phone] Louisa Hood REPAIR SPECIALIST BARREL INSPECTOR Unavailable [phone] Se Levy [facility] Unavailable Unavailable Clari Ruiz [facility] Unavailable [phone] Angel Hannah MD Unavailable Lesly Celaya MD Unavailable Tawana Patel MA Unavailable Unavailable Ramses Mcpherson MD Unavailable [phone] Obdulio Barrera MD Unavailable [phone] Obdulio Barrera MD Unavailable [phone] Lesvia Stanley Unavailable Marilia Deluna PhD Unavailable Niyah Decker [facility] Unavailable Clari Poole [facility] Unavailable Lesvia Stanley Unavailable JosephClari jay [facility] Unavailable Israkb Niyah Caro RN Unavailable Delia Avila Mel [facility] Unavailable [phone] Mandt, Delia Mel RPH Unavailable [phone] Schweivictorino Niyah Caro [facility] Unavailable JamisonMago [facility] Unavailable SchwreggieNiyah gleason [facility] Unavailable SimonaLeela [facility] Unavailable SchwNiyah grossman [facility] Unavailable Marvin Miranda MD Unavailable Marvin Miranda MD Unavailable JosephClari [facility] Unavailable [phone] Encounter Details Date Type Department Care Team Description 04/02/2022 External Order [facility] Outside, Provider PTS D (post- traumatic stress disorder); Results [facility] Molecular 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 documented as of this encounter Miscellaneous Notes Result Encounter Note - Lory Nunez PA-C - 04/02/2022 11:59 PM CDT Marta I received your Workables report. I have released to to you [...] hesitate to contact our office via phone ([phone]) or MyChart. Lory Nunez MBA, MS, PAGiovanni [facility] documented in this encounter Plan of Treatment Upcoming Encounters Date Type Specialty Care Team Description 10/21/2022 Office Visit Pulmonology Obdulio Barrera MD [address] [phone] (Wo rk) 10/25/2022 PRE VISIT ENT Charo Burton MD Previsit [address] [place] [address] (Wo rk) 10/25/2022 Office Visit ENT Charo Burton MD [address] [place] [address] [phone] (Wo rk) 10/25/2022 Office Visit ENT Provider, Jeannette Ent Dysphonia Mill Operator Helper 10/25/2022 Virtual Visit Pain & Palliative [place] [address] [place], [place] [address] 10/28/2022 Appointment Speech Therapy Anabel Chew, INFECTION PREVENTIONIST [address] [phone] (Wo rk) 11/17/2022 Appointment Speech Therapy Anabel Chew SLP [address] [phone] (Wo rk) 12/01/2022 Office Visit Pain & [place] [address] [place], [place] [address] (Wo rk) 12/23/2022 Office Visit Neurology Colby Yeung MD [address] [place], [place] [address] (Wo rk) documented as of this encounter [...] MTHFR (04/02/2022) P athologist Signature See Scanned [employer] HEALTH Report Specimen (Source) Anatomical Location Collection Method / Collectio n Time Received Time / Laterality Volume Buccal swab ORAL CAVITY 04/02/2022 STRUCTURE / Unknown Narrative This result has an attachment that is no t available. Lory Nunez PA-C LAB - BODY FLUIDS ORDERABLES Performing Organization Address [facility] e Number [facility] [address] [place] [address] [employer] Psychotropic (04/02/2022) P athologist Signature See Scanned [employer] HEALTH Report Specimen (Source) Anatomical Location Collection Method / Collectio n Time Received Time / Laterality Volume Buccal swab ORAL CAVITY 04/02/2022 STRUCTURE / Unknown Narrative This result has an attachment that is no t available. Lory Nunez PA-C LAB - BODY FLUIDS ORDERABLES Performing Organization Address City/[facility] Code [facility] e Number [employer] [facility] [address] [place] [address] documented in this encounter Visit Diagnoses Diagnosis PTSD (post-traumatic stress disorder) Posttraumatic stress disorder Severe episode of recurrent major depres sive disorder, without psychotic features (H) SHAMEKA (generalized anxiety disorder) Generalized anxiety disorder documented in this encounter Additional Health Concerns Infection Onset Date Last Indicated Resolved Time Rule Out Pertussis 04/05/2022 04/05/2022 04/06/2022 10 :34 AM CDT Assessment Noted Time PHQ-9 Depression Total Score: 16 03/25/2022 7:29 AM CD T documented as of this encounter Care Teams Conditioning Coach Relationship Specialty Start Date End Date Aydee Burton PCP - General Nurse Practitioner - 05/17/21 ELADIO Mendez BARREL INSPECTOR Family [address] [place] [address] [phone] Aydee Burton Assigned PCP 04/28/21 ELADIO Mendez BARREL INSPECTOR [address] [place] [address] [phone] Louisa Hood Assigned Neuroscience 07/11/21 ELADIO Recinos BARREL INSPECTOR Provider [address] [place], [place] [phone] Se Levy, Lead Technical Support Analyst 08/05/21 05/12/22 Clari Francois Pharmacist Pharmacist 08/06/21 06/07/22 Jocelyn, [facility] [address] [place] [address] [place], Assigned Sleep 08/01/21 Angel Turcios Provider [address] [place], [place] [phone] Lesly Celaya MD Assigned Surgical 09/05/21 [address] [place] [address] Tawana PatelFormerly [facility] 09/30/21 MA Worker Ramses Mcpherson Assigned OBGYN 11/07/21 MD Onesimo Provider [address] [place] [address] Obdulio Barrera MD Critical Care 01/24/22 MD Leo 420 [facility] [address] [place], [place] [address] Obdulio Barrera Assigned Pulmonology 02/06/22 MD Leo Provider 420 [facility] [address] [place] [address] Lesvia Stanley, Cardiac Rehabilitation 03/03/22 03/03/23 EP Therapist [facility] [address] [place] [phone] Marilia Deluna, Assigned Behavioral 02/20/22 [facility] Provider [address] [place] [phone] Niyah Decker, [facility] Pharmacist Pharmacist 03/07/[address] [place] [address] [address] [place], [place] [phone] Clari Poole, Pharmacist Pharmacist 03/07/22 06/15/22 [facility] [address] [facility] [address] [place] [phone] Lesvia Stanley, Cardiac Rehabilitation 03/17/22 03/17/23 EP Therapist [facility] [address] [address] Clari Ruiz Assigned MTM 04/09/22 05/27/22 Jocelyn [facility] Pharmacist [address] [place] [address] Niyah Warner, Lead Technical Support Analyst Primary Care - CC 06/27/22 RN Delia Avila Pharmacist Pharmacist 06/07/22 Mel [facility] [address] [place], [place] [address] Delia Avila Assigned MTM 06/11/22 06/24/22 Mel [facility] Pharmacist [address] [place], [place] [address] Niyah Decker, [facility] Assigned MTM 05/28/22 06/10/22 [address] [facility] Pharmacist [address] [place], [place] [address] Mago Swift, Lead Technical Support Analyst Customer Operations Representative - 08/05/21 [facility] Clinical Niyah Decker, [facility] Assigned MTM 06/25/22 07/29/22 [address] [facility] Pharmacist [address] [place], [place] [phone] Leela Jarvis, [facility] Pharmacist 07/26/22 05/15/[address] [facility] [address] [place] [phone] Niyah Decker, [facility] Assigned MTM 08/10/22 09/16/22 [address] [facility] Pharmacist [address] [place], [place] [address] Marvin Miranda MD Gastroenterology 09/21/[address] [place] [address] [address] [place], [place] [address] Marvin Miranda, Assigned 10/01/22 Gastroenterology [address] [facility] Provider [address] [place], [place] [address] Clari Ruiz Assigned MTM 09/17/22 Jocelyn [facility] Pharmacist [address] [place], [place] [address] documented as of this encounter
--- OUTSIDE RECORDS SUMMARY | 2022-10-21 08:54 | XMS_ITS | Encounter Summary ---
:1980 Author Organization [place] Address [address] [place] [address] Care Team Providers Name Role Phone Aydee Burton LEATHERSMITH SPA MANAGER Primary Care Provider Aydee Burton LEATHERSMITH SPA MANAGER Unavailable [phone] Louisa Hood LEATHERSMITH SPA MANAGER Unavailable [phone] Se Levy [facility] Unavailable Unavailable Clari Ruiz [facility] Unavailable [phone] Angel Hannah MD Unavailable Lesly Celaya MD Unavailable Tawana Patel MA Unavailable Unavailable Ramses Mcpherson MD Unavailable [phone] Obdulio Barrera MD Unavailable [phone] Obdulio Barrera MD Unavailable [phone] Lesvia Stanley Unavailable Marilia Deluna PhD Unavailable Niyah Decker [facility] Unavailable Clari Poole [facility] Unavailable JadenCarlitoswalter Santana Unavailable JamisonMago [facility] Unavailable Reason for Visit Rehab Therapy Cardiac Therapy (Routine: Next available opening) - Authorized Specialty Diagnoses / Procedures Referred By Contact Refer red To Contact CARDIAC REHAB Diagnoses Asthma SOB (shortness of breath) [facility] [address] [place] [address] Phone: Referral ID Status Reason Start Date Expiration Date Visits V isits Requested Authorized [id number] Authorized 11/13/2021 11/12/2022 365 365 Encounter Details Date Type Department Care Team Description 03/29/2022 [facility] 420 [facility] [address] [place] [address] Cardiac and Pulmonary 1, Rh Pulmonary Rehab Rehabilitation [address] [place] [address] Social History Tobacco Use Types [...] How often do you attend synagogue or tenriism services? 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 fluticasone (FLONASE) [place] 2 sprays into 18.2 mL 0 03/0804/05/2022 [...] Visit Pulmonology Obdulio Barrera MD [address] [phone] (Wo rk) 10/25/2022 PRE VISIT ENT Charo Burton MD Previsit [address] [place] [address] [phone] (Wo rk) 10/25/2022 Office Visit Charo Carter MD [address] [place] [address] [phone] (Estefanía rk) 10/25/2022 Office Visit ENT Provider, Jeannette Ent Dysphonia Freight Engineer 10/25/2022 Virtual Visit Pain & Palliative Care Marilia Deluna, PhD [address] [place], [place] [address] 10/28/2022 Appointment Speech Therapy Anabel Chew, ORTHODONTIC LABORATORY TECHNICIAN [address] [address] (Wo rk) 11/17/2022 Appointment Speech Therapy Anabel Chew, ORTHODONTIC LABORATORY TECHNICIAN [address] [address] (Wo rk) 12/01/2022 Office Visit Pain & [place] [address] [place], [place] [address] (Wo rk) 12/23/2022 Office Visit Neurology Colby Yeung MD [address] [place] [address] (Wo rk) documented as of this encounter Visit Diagnoses Not on filedocumented in this encounter Additional Health Concerns Assessment Noted Time PHQ-9 Depression Total Score: 16 03/25/2022 7:29 AM CD T documented as of this encounter Care Teams Bisque Brusher Relationship Specialty Start Date End Date Aydee Burton, PCP - General Nurse Practitioner - 05/17/21 LEATHERSMITH SPA MANAGER Family [address] [place] [phone] Aydee Burton, Assigned PCP 04/28/21 LEATHERSMITH SPA MANAGER [address] [place] [address]772 Louisa Hood, Assigned Neuroscience 07/11/21 LEATHERSMITH SPA MANAGER Provider [address] [place] [address]175 Se Levy, Lead Warehouse Shipper 08/05/21 05/12/22 Clari Francois Pharmacist Pharmacist 08/06/21 06/07/22 Jocelyn [facility] [address] [place] [address] [place], Assigned Sleep 08/01/21 Angel Turcios, Provider [address] [place] [address] Lesly Celaya MD Assigned Surgical 09/05/21 [address] [place] [place] [address] Tawana Patel MA [facility] 09/30/21 Worker Ramses Mcpherson Assigned OBGYN 11/07/21 MD Onesimo Provider [address] [place] [address] Obdulio Barrera MD Critical Care 01/24/[address] [place] [address] 276 [place] [address] Obdulio Barrera, Assigned Pulmonology 02/06/22 MD Provider [address] [place] [address] 276 [place], [place] [address] Lesvia Stanley EP Cardiac Rehabilitation 03/03/22 03/03/23 [facility] Therapist [address] [place], [place] [address] Marilia Deluna, PhD Assigned Behavioral 02/20/22 [address] [facility] Provider [place], [place] [phone] Niyah Decker, [facility] Pharmacist Pharmacist 03/07/22 420 [facility] [address] [place], [place] [phone] Clari Poole, Pharmacist Pharmacist 03/07/22 06/15/22 [facility] [address] [facility] [place] [address] Lesvia Stanley EP Cardiac Rehabilitation 03/17/22 03/17/23 [facility] Therapist [address] [address] Mago Swift SENIOR POWER SCHEDULER Lead Warehouse Shipper Center Manager - 08/05/21 Clinical documented as of this encounter
--- OUTSIDE RECORDS SUMMARY | 2022-10-21 08:54 | XMS_ITS | Encounter Summary ---
:1980 Author Organization [place] Address [address] [place] [address] Care Team Providers Name Role Phone Aydee Burton THEATRICAL VARIETY AGENT LOOM FIXER Primary Care Provider Aydee Burton THEATRICAL VARIETY AGENT LOOM FIXER Unavailable [phone] Louisa Hood THEATRICAL VARIETY AGENT LOOM FIXER Unavailable [phone] Se Levy [facility] Unavailable Unavailable Clari Ruiz [facility] Unavailable [phone] Angel Hannah MD Unavailable Lesly Celaya MD Unavailable Tawana Patel MA Unavailable Unavailable Ramses Mcpherson MD Unavailable [phone] Obdulio Barrera MD Unavailable [phone] Obdulio Barrera MD Unavailable [phone] Lesvia Stanley Unavailable Marilia Deluna PhD Unavailable Niyah Decker [facility] Unavailable Clari Poole [facility] Unavailable Lesvia Stanley Unavailable JosephClari jay [facility] Unavailable IsraNiyah carter RN Unavailable Daniiparam Delia Leal [facility] Unavailable [phone] Mandt, Delia Mel RPH Unavailable SchweiNiyah gleason [facility] Unavailable JamisonMago [facility] Unavailable Schweivictorino Niyah Caro [facility] Unavailable EvertonLeela davis [facility] Unavailable SchwNiyah gleason [facility] Unavailable Marvin Miranda MD Unavailable Marvin Miranda MD Unavailable Joseph Clari Munguiae [facility] Unavailable Reason for Visit Reason Comments Medication Refill Encounter Details Date Type Department Care Team Description 04/03/2022 Refill [facility] [place] Medication Refill [place] Iftikhar Alfred MD [address] [facility] [address] [facility] [address] [place] [address] [place], [place] [phone] (Wo rk) Social History Tobacco Use Types [...] How often do you attend buddhist or mormonism services? 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 CUTTER COVID-19 Exposure Response Date Recorded In [...] sickness script on 03/08/2022 Amparo Fay RN [facility] documented in this encounter Plan of Treatment Upcoming Encounters Date Type Specialty Care Team Description 10/21/2022 Office Visit Pulmonology Obdulio Barrera MD [address] [place] [address] [phone] (Wo rk) 10/25/2022 PRE VISIT ENT Charo Burton MD Previsit [address] [place] [address] (Wo rk) 10/25/2022 Office Visit ENT Charo Burton MD [address] [place] [address] (Wo rk) 10/25/2022 Office Visit ENT Provider, Ent Dysphonia Learning Design Specialist 10/25/2022 Virtual Visit Pain & Palliative Care [place] [address] [place], [place] [address] 10/28/2022 Appointment Speech Therapy Anabel Chew, CARDIAC NURSE PRACTITIONER [address] [address] (Wo rk) 11/17/2022 Appointment Speech Therapy Anabel Chew, CARDIAC NURSE PRACTITIONER [address] 8[address] (Wo rk) 12/01/2022 Office Visit Pain & [place] [address] [place], [place] [address] (Wo rk) 12/23/2022 Office Visit Neurology Colby Yeung MD [address] [place] [address] (Wo rk) documented [...] documented as of this encounter Care Teams Hat Forming Machine Operator Relationship Specialty Start Date End Date Aydee Burton PCP - General Nurse Practitioner - 05/17/21 ELADIO Mendez LOOM FIXER Family [address] [place], [place] [phone] Aydee Burton Assigned PCP 04/28/21 ELADIO Mendez LOOM FIXER [address] [place], [place] [phone] Louisa Hood Assigned Neuroscience 07/11/21 ELADIO Recinos LOOM FIXER Provider [address] [place], [place] [phone] Se Levy, Lead Brick Yard Hand 08/05/21 05/12/22 Clari Francois Pharmacist Pharmacist 08/06/21 [facility]/07[facility]22 [facility] [address] [place] [address] [place], Assigned Sleep 08/01/21 Angel Turcios, Provider [address] [place] [address] Lesly Celaya MD Assigned Surgical 09/05/21 [address] Provider [place], [place] [phone] Tawana PatelFormerly [facility] 09/30/21 MA Ramses Lazaro Assigned OBGYN 11/07/21 MD Onesimo Provider [address] [place], [place] [phone] Obdulio Barrera MD Critical Care 01/24/22 MD Leo [address] [address] Obdulio Barrera Assigned Pulmonology 02/06/22 MD Leo Provider [address] [address] Lesvia Stanley, Cardiac Rehabilitation 03/03/22 03/03/23 EP Therapist [facility] [address] [place] [address] Marilia Deluna, Assigned Behavioral 02/20/22 [facility] Provider [address] [place] [address] Niyah Decker, [facility] Pharmacist Pharmacist 03/07/22 420 [facility] [address] [place] [address] Clari Poole, Pharmacist Pharmacist 03/07/22 06/15/22 [facility] [address] [facility] [address] [place] [phone] Lesvia Stanley, Cardiac Rehabilitation 03/17/22 03/17/23 EP Therapist [facility] [address] [address] Clari Ruiz Assigned MTM 04/09/22 05/27/22 Jocelyn [facility] Pharmacist [address] [place], [place] [address] Niyah Warner, Lead Brick Yard Hand Primary Care - CC 06/27/22 RN Delia Avila Pharmacist Pharmacist 06/07/22 Mel [facility] [address] [place] [address] Delia Avila Assigned MTM 06/11/22 06/24/22 Mel [facility] Pharmacist [address] [place] [address] Niyah Decker, [facility] Assigned MTM 05/28/22 06/10/22 420 [facility] Pharmacist [address] [place] [address] Mago Swift, Lead Brick Yard Hand Direct Care Supervisor - 08/05/21 [facility] Clinical Niyah Decker, [facility] Assigned MTM 06/25/22 07/29/22 420 [facility] Pharmacist [address] [place], [place] [address] Leela Jarvis [facility] Pharmacist 07/26/22 05/15/23 [address] [facility] [address] [place] [phone] Niyah Decker [facility] Assigned MTM 08/10/22 09/16/22 420 [facility] Pharmacist [address] [place], [place] [address] Marvin Miranda MD Gastroenterology 09/21/[address] [place], [place] [phone] Marvin Miranda, Assigned 10/01/22 Gastroenterology [address] [facility] Provider [address] [place], [place] [address] Clari Ruiz Assigned MTM 09/17/22 Jocelyn [facility] Pharmacist [address] [place], [place] [phone] documented as of this encounter
--- OUTSIDE RECORDS SUMMARY | 2022-10-21 08:54 | XMS_ITS | Encounter Summary ---
:1980 Author Organization [place] Address [address] [place] [address] Care Team Providers Name Role Phone Aydee Burton FORENSIC STRUCTURAL ENGINEER PREPARATION OPERATOR Primary Care Provider Aydee Burton FORENSIC STRUCTURAL ENGINEER PREPARATION OPERATOR Unavailable [phone] Louisa Hood FORENSIC STRUCTURAL ENGINEER PREPARATION OPERATOR Unavailable [phone] Se Levy [facility] Unavailable Unavailable Clari Ruiz [facility] Unavailable [phone] Angel Hannah MD Unavailable Lesly Celaya MD Unavailable Tawana Patel MA Unavailable Unavailable Ramses Mcpherson MD Unavailable [phone] Obdulio Barrera MD Unavailable [phone] Obdulio Barrera MD Unavailable [phone] Lesvia Stanley Unavailable Marilia Deluna PhD Unavailable Niyah Decker [facility] Unavailable Clari Poole [facility] Unavailable JadenCarlitoswalter Santana Unavailable JamisonMago [facility] Unavailable Encounter Details Date Type Department Care [...] How often do you attend samaritan or christian services? 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 documented as of this encounter Plan of Treatment Upcoming Encounters Date Type Specialty Care Team Description 10/21/2022 Office Visit Pulmonology Obdulio Barrera MD [address] [phone] (Wo rk) 10/25/2022 PRE VISIT ENT Charo Burton MD Previsit [address] [place] [address] [phone] (Wo rk) 10/25/2022 Office Visit ENT Charo Burton MD [address] [place] [address] [phone] (Wo rk) 10/25/2022 Office Visit ENT Provider, Ent Dysphonia Customer Service Trainer 10/25/2022 Virtual Visit Pain & [place] [address] [place], [place] [address] 10/28/2022 Appointment Speech Therapy Anabel Chew, MARKETING PLANNER [address] [phone] (Wo rk) 11/17/2022 Appointment Speech Therapy Anabel Chew, MARKETING PLANNER [address] [phone] (Wo rk) 12/01/2022 Office Visit Pain & [place] [address] [place], [place] [address] (Wo rk) 12/23/2022 Office Visit Neurology Colby Yeung MD [address] [address] (Wo rk) documented as of this encounter Visit Diagnoses Not on filedocumented in this encounter Additional Health Concerns Assessment Noted Time PHQ-9 Depression Total Score: 16 03/25/2022 7:29 AM CD T documented as of this encounter Care Teams Sales Agent Casualty Insurance Relationship Specialty Start Date End Date Aydee Burton, PCP - General Nurse Practitioner - 05/17/21 FORENSIC STRUCTURAL ENGINEER PREPARATION OPERATOR Family [address] [place], [place] [phone] Aydee Burton, Assigned PCP 04/28/21 FORENSIC STRUCTURAL ENGINEER PREPARATION OPERATOR [address] [place], [place] [phone] Louisa Hood, Assigned Neuroscience 07/11/21 FORENSIC STRUCTURAL ENGINEER PREPARATION OPERATOR Provider 500 [place], [place] [phone] Se Levy, Lead Embedded Systems Software Developer 08/05/21 05/12/22 Clari Francois Pharmacist Pharmacist 08/06/21 06/07/22 [facility] [address] [place], [place] [phone] [place], Assigned Sleep 08/01/21 Angel Trucios, Provider [address] [place], [place] [address] Lesly Celaya MD Assigned Surgical 09/05/21 [address] Provider [place], [place] [address] Tawana Patel MA [facility] 09/30/21 Worker Ramses Mcpherson Assigned OBGYN 11/07/21 MD Onesimo Provider [address] [place] [address] Obdulio Barrera MD Critical Care 01/24/[address] [place] [address] 877195 Obdulio Barrera, Assigned Pulmonology 02/06/[address] [address] Lesvia Stanley, GHADA Cardiac Rehabilitation 03/03/22 03/03/23 [facility] Therapist [address] [id number] Marilia Deluna, PhD Assigned Behavioral 02/20/22 [address] [facility] [place] [address] Niyah Decker, [facility] Pharmacist Pharmacist 03/07/22 420 [facility] 812 [place] [address] Clari Poole, Pharmacist Pharmacist 03/07/22 06/15/22 [facility] [address] [facility] [place] [address] Lesvia Stanley, GHADA Cardiac Rehabilitation 03/17/22 03/17/23 [facility] Therapist [address] [id number] Mago Swift MEDIC TECHNICIAN Lead Embedded Systems Software Developer Toolroom Machinist - 08/05/21 Clinical documented as of this encounter
--- OUTSIDE RECORDS SUMMARY | 2022-10-21 08:54 | XMS_ITS | Encounter Summary ---
:1980 Author Organization [place] Address [address] [place] [address] Care Team Providers Name Role Phone Aydee Burton BRANCH CONTROLLER MAINTENANCE DATA ANALYST Primary Care Provider Aydee Burton BRANCH CONTROLLER MAINTENANCE DATA ANALYST Unavailable [phone] Louisa Hood BRANCH CONTROLLER MAINTENANCE DATA ANALYST Unavailable [phone] Se Levy [facility] Unavailable Unavailable Clari Ruiz [facility] Unavailable [phone] Angel Hannah MD Unavailable Lesly Celaya MD Unavailable Tawana Patel MA Unavailable Unavailable Ramses Mcpherson MD Unavailable [phone] Obdulio Barrera MD Unavailable [phone] Obdulio Barrera MD Unavailable Lesvia Stanley Unavailable Marilia Deluna PhD Unavailable Niyah Decker [facility] Unavailable Clari Poole [facility] Unavailable JadenCarlitoswalter Santana Unavailable JamisonMago [facility] Unavailable Reason for Visit Rehab Therapy Cardiac Therapy (Routine: Next available opening) - Authorized Specialty Diagnoses / Procedures Referred By Contact Refer red To Contact CARDIAC REHAB Diagnoses Asthma SOB (shortness of breath) [facility] [address] [facility] [place] [address] Phone: Referral ID Status Reason Start Date Expiration Date Visits V isits Requested Authorized [id number] Authorized 11/13/2021 11/12/2022 365 365 Encounter Details Date Type Department Care Team Description 04/05/2022 [facility] 420 [facility] [address] [place] [address] Cardiac and Pulmonary 1, Rh Pulmonary Rehab Rehabilitation [address] [place] [address] Social History Tobacco Use Types [...] How often do you attend pentecostal or episcopal services? Never 08/05/2021 Do you [...] at Date Recorded Female 11/09/2021 7:53 PM ROUND CUTTER OPERATOR COVID-19 Exposure Response Date Recorded In [...] Visit Pulmonology Obdulio Barrera MD [address] [address] (Wo rk) 10/25/2022 PRE VISIT ENT Charo Burton MD Previsit [address] [place] [address] [phone] (Estefanía rk) 10/25/2022 Office Visit Charo Carter MD [address] [place] [address] [phone] (Estefanía casanova) 10/25/2022 Office Visit ENT Provider, Ent Dysphonia Media Law Faculty Member 10/25/2022 Virtual Visit Pain & Palliative [place] [address] [place], [place] [address] 10/28/2022 Appointment Speech Therapy Anabel Chew, SUPERVISOR DENTURE DEPARTMENT [address] [phone] (Wo rk) 11/17/2022 Appointment Speech Therapy Anabel Chew, SUPERVISOR DENTURE DEPARTMENT [address] 128215 (Wo rk) 12/01/2022 Office Visit Pain & [place] [address] [place], [place] [address] (Wo rk) 12/23/2022 Office Visit Neurology Colby Yeung MD [address] [place] [phone] (Wo rk) documented as of this encounter Visit Diagnoses Not on filedocumented in this encounter Additional Health Concerns Infection Onset Date Last Indicated Resolved Time Rule Out Pertussis 04/05/2022 04/05/2022 04/06/2022 10 :34 AM CDT Assessment Noted Time PHQ-9 Depression Total Score: 16 03/25/2022 7:29 AM CD T documented as of this encounter Care Teams Second Facing Baster Relationship Specialty Start Date End Date Aydee Burton, PCP - General Nurse Practitioner - 05/17/21 BRANCH CONTROLLER MAINTENANCE DATA ANALYST Family [address] [place] [address] [phone] Aydee Burton, Assigned PCP 04/28/21 BRANCH CONTROLLER MAINTENANCE DATA ANALYST [address] [place] [address] [phone] Louisa Hood, Assigned Neuroscience 07/11/21 BRANCH CONTROLLER MAINTENANCE DATA ANALYST Provider [address] [place] [address] [phone] Se Levy, Lead Cold Meat Chef 08/05/21 05/12/22 WEB PRESS ROLL TENDERClari Ordonez Pharmacist Pharmacist 08/06/21 06/07/22 JORDAN Banks [address] [place] [address] [place], Assigned Sleep 08/01/21 Angel Turcios, Provider [address] [place] [address] Lesly Celaya MD Assigned Surgical 09/05/21 [address] [facility] [place] [place] [address] Tawana Patel [facility] 09/30/21 Worker Ramses Mcpherson Assigned OBGYN 11/07/21 MD Onesimo Provider [address] [place] [address] Obdulio Barrera MD Critical Care 01/24/[address] [place] [address] 276 [place] [address] Obdulio Barrera, Assigned Pulmonology 02/06/[address] [place] [address] 276 [place] [address] Lesvia Stanley EP Cardiac Rehabilitation 03/03/22 03/03/23 [facility] Therapist [address] [place] [phone] Marilia Deluna, PhD Assigned Behavioral 02/20/22 [address] [facility] Provider [place], [place] [phone] Niyah Decker, [facility] Pharmacist Pharmacist 03/07/22 420 [facility] 812 [place] [address] Clari Poole, Pharmacist Pharmacist 03/07/22 06/15/22 [facility] [address] [facility] [address] [place] [phone] Lesvia Stanley EP Cardiac Rehabilitation 03/17/22 03/17/23 [facility] Therapist [address] [phone] Mago Swift, [facility] Lead Cold Meat Chef Radiographer - 08/05/21 Clinical documented as of this encounter
--- OUTSIDE RECORDS SUMMARY | 2022-10-21 08:55 | XMS_ITS | Encounter Summary ---
:1980 Author Organization [place] Address [address] [place] [address] Care Team Providers Name Role Phone Aydee Burton HAMMER HEATER TITLE INSURANCE AGENT Primary Care Provider [phone] Aydee Burton HAMMER HEATER TITLE INSURANCE AGENT Unavailable [phone] Louisa Hood HAMMER HEATER TITLE INSURANCE AGENT Unavailable [phone] Se Levy [facility] Unavailable Unavailable Clari Ruiz [facility] Unavailable [phone] Angel Hannah MD Unavailable Lesly Celaya MD Unavailable Tawana Patel MA Unavailable Unavailable Ramses Mcpherson MD Unavailable [phone] Obdulio Barrera MD Unavailable Obdulio Barrera MD Unavailable [phone] Lesvia Stanley Unavailable Marilia Deluna PhD Unavailable Niyah Decker [facility] Unavailable Clari Poole [facility] Unavailable JadenLesvia Esther Unavailable JamisonMago [facility] Unavailable Reason for Visit Reason Comments Follow Up Encounter Details Date Type Department Care Team Description 03/25/2022 Office Visit [facility] Aydee Burton [facility] co ugh (Primary Dx); [facility] ELADIO Mendez TITLE INSURANCE AGENT Bronchospasm; 4151 [facility] [address] [place] [address] [phone] Social History Tobacco Use Types Packs/Day Years [...] How often do you attend shinto or orthodox services? 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 Aydee Burton APRN CNP [facility] Marta is a 42 year old [...] She is taking medications regularly. Currently from [place] - more severe asthma attacks - inhaler not helping. Wake from an asthma attack a few times last week. Worse when talks and/or walks. Could not stop coughing after walking back from field where daughter was playing softball to car. Bartender Server appt today - can only do injections but are $7000 each. Wants pt to see Gift Officer and ENT first. Letter from work that needs to be completed, will get printed or send in [employer]. Allergy next week march 29. March 31 [...] Barrera MD 420 [facility] 276 [place], [place] [phone] (Wo rk) 10/25/2022 PRE VISIT ENT Charo Burton MD Previsit [address] [place] [address] [phone] (Wo rk) 10/25/2022 Office Visit ENT Charo Burton MD [address] [place] [address] [phone] (Wo rk) 10/25/2022 Office Visit ENT Provider, Ent Dysphonia Manager Business Continuity 10/25/2022 Virtual Visit Pain & Palliative [place] [address] [place], [place] [address] 10/28/2022 Appointment Speech Therapy Anabel Chew, MILITARY ANALYST [address] [phone] (Wo rk) 11/17/2022 Appointment Speech Therapy Anabel Chew SLP [address] [phone] (Wo rk) 12/01/2022 Office Visit Pain & [place] [address] [place], [place] [address] (Wo rk) 12/23/2022 Office Visit Neurology Colby Yeung MD [address] [phone] (Wo rk) documented as of this encounter Visit Diagnoses Diagnosis Chronic cough - Primary Cough Bronchospasm Acute bronchospasm Hoarseness Dysphonia documented in this encounter Additional Health Concerns Assessment Noted Time PHQ-9 Depression Total Score: 16 03/25/2022 7:29 AM CD T documented as of this encounter Care Teams Software Development Leader Relationship Specialty Start Date End Date Aydee Burton, PCP - General Nurse Practitioner - 05/17/21 HAMMER HEATER TITLE INSURANCE AGENT Family [address] [place] [address] Aydee Burton, Assigned PCP 04/28/21 HAMMER HEATER TITLE INSURANCE AGENT [address] [place] [address] [phone] Louisa Hood, Assigned Neuroscience 07/11/21 HAMMER HEATER TITLE INSURANCE AGENT Provider 500 [place] [address] Se Levy, Lead Property Staff Accountant 08/05/21 05/12/22 Clari Francois Pharmacist Pharmacist 08/06/21 06/07/22 [facility] [address] [place], [place] [phone] [place], Assigned Sleep 08/01/21 Angel Turcios, Provider [address] [place] [address] Lesly Celaya MD Assigned Surgical 09/05/[address] Provider [place], [place] [phone] Tawana Patel MA [facility] 09/30/21 Worker Ramses Mcpherson Assigned OBGYN 11/07/21 MD Onesimo Provider [address] [place], [place] [address] Obdulio Barrera MD Critical Care 01/24/[address] [place] [address] 276 [place], [place] [address] Obdulio Barrera, Assigned Pulmonology 02/06/22 MD Provider 420 [facility] 276 [place], [place] [address] Lesvia Stanley, GHADA Cardiac Rehabilitation 03/03/22 03/03/23 [facility] Therapist [address] [place] [address] Marilia Deluna, PhD Assigned Behavioral 02/20/22 [address] [facility] [place] [place] [address] Niyah Decker, [facility] Pharmacist Pharmacist 03/07/22 420 [facility] 812 [place] [address] Clari Poole, Pharmacist Pharmacist 03/07/22 06/15/22 [facility] [address] [facility] [address] [place] [phone] Lesvia Stanley, GHADA Cardiac Rehabilitation 03/17/22 03/17/23 [facility] Therapist [address] [place] [phone] Mago Swift, [facility] Lead Property Staff Accountant South Asian History Professor - 08/05/21 Clinical documented as of this encounter
--- OUTSIDE RECORDS SUMMARY | 2022-10-21 08:55 | XMS_ITS | Encounter Summary ---
:1980 Author Organization [place] Address [address] [place] [address] Care Team Providers Name Role Phone Aydee Burton AMUSEMENT PARK RIDE MECHANIC GUEST HOUSE MANAGER Primary Care Provider [phone] Aydee Burton AMUSEMENT PARK RIDE MECHANIC GUEST HOUSE MANAGER Unavailable [phone] Louisa Hood AMUSEMENT PARK RIDE MECHANIC GUEST HOUSE MANAGER Unavailable [phone] Se Levy [facility] Unavailable Unavailable Clari Ruiz [facility] Unavailable [phone] Angel Hannah MD Unavailable Lesly Celaya MD Unavailable Tawana Patel MA Unavailable Unavailable Ramses Mcpherson MD Unavailable [phone] Obdulio Barrera MD Unavailable [phone] Obdulio Barrera MD Unavailable [phone] Lesvia Stanley Unavailable Marilia Deluna PhD Unavailable Niyah Decker [facility] Unavailable Clari Poole [facility] Unavailable JadenCarlitoswalter Santana Unavailable JamisonMago [facility] [...] How often do you attend anabaptist or jain services? 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 documented as of this encounter Plan of Treatment Upcoming Encounters Date Type Specialty Care Team Description 10/21/2022 Office Visit Pulmonology Obdulio Barrera MD [address] [phone] (Wo rk) 10/25/2022 PRE VISIT ENT Charo Burton MD Previsit [address] [place] [address] [phone] (Wo rk) 10/25/2022 Office Visit ENT Charo Burton MD [address] [place] [address] [phone] (Wo rk) 10/25/2022 Office Visit ENT Provider, Ent Dysphonia Farm Planner 10/25/2022 Virtual Visit Pain & Palliative [place] [address] [place], [place] [address] 10/28/2022 Appointment Speech Therapy Anabel Chew, BREAD JOCKEY [address] [phone] (Wo rk) 11/17/2022 Appointment Speech Therapy Anabel Chew, BREAD JOCKEY [address] 614385 (Wo rk) 12/01/2022 Office Visit Pain & [place] [address] [place], [place] [address] (Wo rk) 12/23/2022 Office Visit Neurology Colby Yeung MD [address] [address] (Wo rk) documented as of this encounter Visit Diagnoses Not on filedocumented in this encounter Additional Health Concerns Assessment Noted Time PHQ-9 Depression Total Score: 16 03/19/2022 7:03 AM CD T documented as of this encounter Care Teams Reinforcing Iron And Rebar Workers Relationship Specialty Start Date End Date Aydee Burton, PCP - General Nurse Practitioner - 05/17/21 AMUSEMENT PARK RIDE MECHANIC GUEST HOUSE MANAGER Family [address] [place], [place] [phone] Aydee Burton, Assigned PCP 04/28/21 AMUSEMENT PARK RIDE MECHANIC GUEST HOUSE MANAGER [address] [place], [place] [phone] Louisa Hood, Assigned Neuroscience 07/11/21 AMUSEMENT PARK RIDE MECHANIC GUEST HOUSE MANAGER Provider 500 [place], [place] [phone] Se Levy, Lead Supervisor Operations 08/05/21 05/12/22 Clari Francois Pharmacist Pharmacist 08/06/21 [facility]/07/22 [facility] [address] [place], [place] [phone] [place], Assigned Sleep 08/01/21 Angel Turcios, Provider [address] [place], [place] [address] Lesly Celaya MD Assigned Surgical 09/05/21 [address] Provider [place], [place] [address] Tawana Patel MA [facility] 09/30/21 Worker Ramses Mcpherson Assigned OBGYN 11/07/21 MD Onesimo Provider [address] [place] [address] Obdulio Barrera MD Critical Care 01/24/[address] [place] [address] 012085 Obdulio Barrera, Assigned Pulmonology 02/06/[address] [address] Lesvia Stanley, GHADA Cardiac Rehabilitation 03/03/22 03/03/23 [facility] Therapist [address] [phone] Marilia Deluna, PhD Assigned Behavioral 02/20/22 [address] [facility] [place] [address] Niyah Decker, [facility] Pharmacist Pharmacist 03/07/22 420 [facility] 812 [place] [address] Clari Poole, Pharmacist Pharmacist 03/07/22 06/15/22 [facility] [address] [facility] [address] Lesvia Stanley, GHADA Cardiac Rehabilitation 03/17/22 03/17/23 [facility] Therapist [address] [address] Mago Swift TILT TRAY DRIVER Lead Supervisor Operations Transliterator - 08/05/21 Clinical documented as of this encounter
--- OUTSIDE RECORDS SUMMARY | 2022-10-21 08:55 | XMS_ITS | Encounter Summary ---
:1980 Author Organization [place] Address [address] [place] [address] Care Team Providers Name Role Phone Aydee Burton DAM OPERATOR LAYAWAY CLERK Primary Care Provider Aydee Burton DAM OPERATOR LAYAWAY CLERK Unavailable [phone] Louisa Hood DAM OPERATOR LAYAWAY CLERK Unavailable [phone] Se Levy [facility] Unavailable Unavailable Clari Riuz [facility] Unavailable [phone] Angel Hannah MD Unavailable Lesly Celaya MD Unavailable Tawana Patel MA Unavailable Unavailable Ramses Mcpherson MD Unavailable [phone] Obdulio Barrera MD Unavailable [phone] Obdulio Barrera MD Unavailable [phone] Lesvia Stanley Unavailable Marilia Deluna PhD Unavailable Niyah Decker [facility] Unavailable Clari Poole [facility] Unavailable Lesvia Stanley Unavailable JamisonMago [facility] Unavailable Encounter Details Date Type Department Care Team Description 03/24/2022 Hospital Encounter [facility] rupali Bailey MD 420 [facility] 276 [place] [address] Cardiac and Pulmonary 2, Rh Pulmonary Rehab Rehabilitation [address] [place] [address] Social History Tobacco Use Types [...] How often do you attend orthodoxy or druze services? 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 COVID-19 Exposure Response Date Recorded In [...] persistent cough asthma without complication fluticasone (FLONASE) Carmen 2 sprays into 18.2 mL 0 03/0804/05/2022 [...] Barrera MD 420 [facility] 276 [place] [address] (Wo rk) 10/25/2022 PRE VISIT ENT Charo Burton MD Previsit [address] [place] [address] (Wo rk) 10/25/2022 Office Visit ENT Charo Burton MD [address] [place] [address] (Wo rk) 10/25/2022 Office Visit ENT Provider, Ent Dysphonia Manager Solar 10/25/2022 Virtual Visit Pain & Palliative Care Marilia Deluna, PhD [address] [place], [place] [address] 10/28/2022 Appointment Speech Therapy Anabel Chew, [address] [phone] (Wo rk) 11/17/2022 Appointment Speech Therapy Anabel Chew, [address] 678695 (Wo rk) 12/01/2022 Office Visit Pain & [place] [address] [place], [place] [address] (Wo rk) 12/23/2022 Office Visit Neurology Colby Yeung MD [address] 516265 (Wo rk) documented as of this encounter Visit Diagnoses Not on filedocumented in this encounter Additional Health Concerns Assessment Noted Time PHQ-9 Depression Total Score: 16 03/19/2022 7:03 AM CD T documented as of this encounter Care Teams High School History Teacher Relationship Specialty Start Date End Date Aydee Burton, PCP - General Nurse Practitioner - 05/17/21 DAM OPERATOR LAYAWAY CLERK Family [address] [place] [address] [phone] Aydee Burton, Assigned PCP 04/28/21 DAM OPERATOR LAYAWAY CLERK [address] [place] [address] [phone] Louisa Hood, Assigned Neuroscience 07/11/21 DAM OPERATOR LAYAWAY CLERK Provider [address] [place], [place] [phone] Se Levy, Lead Category Development Analyst 08/05/21 05/12/22 Clari Francois Pharmacist Pharmacist 08/06/21 06/07/22 [facility] [address] [place], [place] [address] [place], Assigned Sleep 08/01/21 Angel Turcios, Provider [address] [place], [place] [address] Lesly Celaya MD Assigned Surgical 09/05/21 [address] Provider [place], [place] [phone] Tawana Patel MA [facility] Health 09/30/21 Worker Ramses Mcpherson Assigned OBGYN 11/07/21 MD Onesimo Provider [address] [place], [place] [phone] Obdulio Barrera MD Critical Care 01/24/[address] [place] [address] 276 [place], [place] [address] Obdulio Barrera, Assigned Pulmonology 02/06/22 MD Provider [address] [place] [address] 276 [place] [address] Lesvia Stanley, GHADA Cardiac Rehabilitation 03/03/22 03/03/23 [facility] Therapist [address] [place] [address] Marilia Deluna, PhD Assigned Behavioral 02/20/22 8[address] [facility] [place] [address] Niyah Decker, [facility] Pharmacist Pharmacist 03/07/[address] [place] [address] 812 [place], [place] [address] Clari Poole, Pharmacist Pharmacist 03/07/22 06/15/22 [facility] [address] [place] [address] Lesvia Stanley, GHADA Cardiac Rehabilitation 03/17/22 03/17/23 [facility] Therapist [address] [place] [address] Mago Swift, [facility] Lead Category Development Analyst Sole Buffer - 08/05/21 Clinical documented as of this encounter
--- OUTSIDE RECORDS SUMMARY | 2022-10-21 08:55 | XMS_ITS | Encounter Summary ---
:1980 Author Organization [place] Address [address] [place] [address] Care Team Providers Name Role Phone Aydee Burton TRAIN EXAMINER MARINE TECHNICIAN Primary Care Provider Aydee Burton TRAIN EXAMINER MARINE TECHNICIAN Unavailable [phone] Louisa Hood TRAIN EXAMINER MARINE TECHNICIAN Unavailable [phone] Se Levy [facility] Unavailable Unavailable Clari Ruiz [facility] Unavailable [phone] Angel Hannah MD Unavailable Lesly Celaya MD Unavailable Tawana Patel MA Unavailable Unavailable Ramses Mcpherson MD Unavailable [phone] Obdulio Barrera MD Unavailable [phone] Obdulio Barrera MD Unavailable [phone] Lesvia Stanley Unavailable Marilia Deluna PhD Unavailable Niyah Decker [facility] Unavailable Clari Poole [facility] Unavailable JadenCarlitoswalter Santana Unavailable JamisonMago [facility] Unavailable Encounter Details Date Type [...] How often do you attend mu-ism or yarsani services? 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 documented as of this encounter Plan of Treatment Upcoming Encounters Date Type Specialty Care Team Description 10/21/2022 Office Visit Pulmonology Obdulio Barrera MD [address] [phone] (Wo rk) 10/25/2022 PRE VISIT ENT Charo Burton MD Previsit [address] [place] [address] [phone] (Wo rk) 10/25/2022 Office Visit ENT Charo Burton MD [address] [place] [address] 243405 (Wo rk) 10/25/2022 Office Visit ENT Provider, Ent Dysphonia Sales Promotion Coordinator 10/25/2022 Virtual Visit Pain & Palliative Care Marilia Deluna, PhD [address] [place], [place] [address] 10/28/2022 Appointment Speech Therapy Anabel Chew, ENGINEERING DIRECTOR [address] 605525 (Wo rk) 11/17/2022 Appointment Speech Therapy Anabel Chew, ENGINEERING DIRECTOR [address] 348445 (Wo rk) 12/01/2022 Office Visit Pain & [place] [address] [place], [place] [address] (Wo rk) 12/23/2022 Office Visit Neurology Colby Yeung MD [address] [address] (Wo rk) documented as of this encounter Visit Diagnoses Not on filedocumented in this encounter Additional Health Concerns Assessment Noted Time PHQ-9 Depression Total Score: 16 03/25/2022 7:29 AM CD T documented as of this encounter Care Teams Patternmaker Grader Relationship Specialty Start Date End Date Aydee Burton, PCP - General Nurse Practitioner - 05/17/21 TRAIN EXAMINER MARINE TECHNICIAN Family [address] [place], [place] [phone] Aydee Burton, Assigned PCP 04/28/21 TRAIN EXAMINER MARINE TECHNICIAN [address] [place], [place] [phone] Louisa Hood, Assigned Neuroscience 07/11/21 TRAIN EXAMINER MARINE TECHNICIAN Provider 500 [place], [place] [phone] Se Levy, Lead Cherry Grower 08/05/21 05/12/22 Clari Francois Pharmacist Pharmacist 08/06/21 06/07/22 [facility] [address] [place], [place] [phone] Cam[place], Assigned Sleep 08/01/21 Angel Turcios, Provider [address] [place], [place] [address] Lesly Celaya MD Assigned Surgical 09/05/21 [address] Provider [place], [place] [address] Tawana Patel MA [facility] 09/30/21 Worker Ramses Mcpherson Assigned OBGYN 11/07/21 MD Onesimo Provider [address] [place] [address] Obdulio Barrera MD Critical Care 01/24/[address] [place] [phone] Obdulio Barrera, Assigned Pulmonology 02/06/22 Provider [address] [address] Lesvia Stanley, GHADA Cardiac Rehabilitation 03/03/22 03/03/23 [facility] Therapist [address] [phone] Marilia Deluna, PhD Assigned Behavioral 02/20/22 [address] [facility] [place] [address] Niyah Decker, [facility] Pharmacist Pharmacist 03/07/22 420 [facility] 812 [place] [address] Clari Poole, Pharmacist Pharmacist 03/07/22 06/15/22 [facility] [address] [place] [address] Lesvia Stanley, GHADA Cardiac Rehabilitation 03/17/22 03/17/23 [facility] Therapist [address] [address] Mago Swift LABOR OPERATOR Lead Cherry Grower Air Control/Anti Air Warfare Officer - 08/05/21 Clinical documented as of this encounter
--- OUTSIDE RECORDS SUMMARY | 2022-10-21 08:55 | XMS_ITS | Encounter Summary ---
:1980 Author Organization [place] Address [address] [place] [address] Care Team Providers Name Role Phone Aydee Burton EQUIPMENT OR MACHINERY CLEANER PUBLIC SPEAKING PROFESSOR Primary Care Provider [phone] Aydee Burton EQUIPMENT OR MACHINERY CLEANER PUBLIC SPEAKING PROFESSOR Unavailable [phone] Louisa Hood EQUIPMENT OR MACHINERY CLEANER PUBLIC SPEAKING PROFESSOR Unavailable [phone] Se Levy [facility] Unavailable Unavailable Clari Ruiz [facility] Unavailable [phone] Angel Hannah MD Unavailable Lesly Celaya MD Unavailable Tawana Patel MA Unavailable Unavailable Ramses Mcpherson MD Unavailable [phone] Obdulio Barrera MD Unavailable [phone] Obdulio Barrera MD Unavailable [phone] Lesvia Stanley Unavailable Marilia Deluna PhD Unavailable Niyah Decker [facility] Unavailable Clari Poole [facility] Unavailable Lesvia Stanley Unavailable JamisonWinstone Terri [facility] Unavailable Reason for Visit Reason Comments Follow Up Encounter Details Date Type Department Care Team Description 03/[facility]22 [facility] MD Leo asthma without Cierra [address] complication (Primary [address] [facility] [address]x) [address] [place] [address] [phone] Social History Tobacco Use Types Packs/Day Years [...] How often do you attend caodaism or mosque services? 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 I question if there is something else going on besides asthma. Your lungs sound clear and your tests are all normal. I would like you to keep your appointments with ENT and allergy before committing ourselves to further asthma treatment. documented in this encounter Progress Notes Obdulio Barrera MD - 03/25/2022 8:00 AM CDT [...] GENITOURINARY SURGERY Tubal ligation and ablasion ??? CARPENTER'S ASSISTANT SURGERY not sure tubal ligation and [...] Other Topics Concern ??? Parent/sibling w/ CABG, [place] or angioplasty before 65F 55M? No Social [...] with Friends and Family: Never ??? Attends Evangelical Services: Never ??? Active Member of Clubs [...] MD Pulmonary and Critical Care Medicine [facility] documented in this encounter Nursing Crista Reynolds [...] 10/21/2022 Office Visit Pulmonology Obdulio Barrera MD [address] [place] [address] [phone] (Wo rk) 10/25/2022 PRE VISIT ENT Charo Burton MD Previsit [address] [place] [address] 274135 (Wo rk) 10/25/2022 Office Visit ENT Charo Burton MD [address] [place] [address] 808605 (Wo rk) 10/25/2022 Office Visit ENT Provider, Jeannette Ent Dysphonia Medical Office Coordinator 10/25/2022 Virtual Visit Pain & Palliative Care Marilia Del[place] PhD [address] [address] [place], [place] [address] 10/28/2022 Appointment Speech Therapy Anabel Chew, ASSISTANT WINEMAKER [address] 257005 (Wo rk) 11/17/2022 Appointment Speech Therapy Anabel Chew, ASSISTANT WINEMAKER [address] 804305 (Wo rk) 12/01/2022 Office Visit Pain & [place] [address] [place], [place] [address] (Wo rk) 12/23/2022 Office Visit Neurology Colby Yeung MD [address] [facility] [place] [place], [place] [address] (Wo rk) documented as of this encounter Visit Diagnoses Diagnosis Moderate persistent asthma without compl ication - Primary Unspecified asthma documented in this encounter Additional Health Concerns Assessment Noted Time PHQ-9 Depression Total Score: 16 03/25/2022 7:29 AM CD T documented as of this encounter Care Teams Food Service Worker Relationship Specialty Start Date End Date Aydee Burton, PCP - General Nurse Practitioner - 05/17/21 EQUIPMENT OR MACHINERY CLEANER PUBLIC SPEAKING PROFESSOR Family [address] [place] [address] Aydee Burton, Assigned PCP 04/28/21 EQUIPMENT OR MACHINERY CLEANER PUBLIC SPEAKING PROFESSOR [address] [place] [address] [phone] Louisa Hood, Assigned Neuroscience 07/11/21 EQUIPMENT OR MACHINERY CLEANER PUBLIC SPEAKING PROFESSOR Provider [address] [place] [phone] Se Levy, Lead Recooperer 08/05/21 05/12/22 Clari Francois Pharmacist Pharmacist 08/06/21 06/07/22 Jocelyn [facility] [address] [facility] [address] [place] [address] [place], Assigned Sleep 08/01/21 Angel Turcios, Provider [address] [place] [address] Lesly Celaya MD Assigned Surgical 09/05/[address] Provider [place], [place] [phone] Tawana Patel MA [facility] Health 09/30/21 Worker Ramses Mcpherson Assigned OBGYN 11/07/21 MD Onesimo Provider [address] [place] [address] Obdulio Barrera MD Critical Care 01/24/[address] [place] [address] 276 [place], [place] [address] Obdulio Barrera, Assigned Pulmonology 02/06/22 MD Provider [address] [address] Lesvia Stanley, GHADA Cardiac Rehabilitation 03/03/22 03/03/23 [facility] Therapist [address] [address] Marilia Deluna, PhD Assigned Behavioral 02/20/22 [address] [facility] [place] [place] [address] Niyah Decker, [facility] Pharmacist Pharmacist 03/07/22 420 [facility] 812 [place] [address] Clari Poole, Pharmacist Pharmacist 03/07/22 06/15/22 [facility] [address] [facility] [address] [place] [phone] Lesvia Stanley, GHADA Cardiac Rehabilitation 03/17/22 03/17/23 [facility] Therapist [address] [phone] Mago Swift, [facility] Lead Recooperer Shale Planer Operator Helper - 08/05/21 Clinical documented as of this encounter
--- OUTSIDE RECORDS SUMMARY | 2022-10-21 08:55 | XMS_ITS | Encounter Summary ---
:1980 Author Organization [place] Address [address] [place] [address] Care Team Providers Name Role Phone Aydee Burton FIRST ASSISTANT HYDROGENATION STILL OPERATOR Primary Care Provider Aydee Burton FIRST ASSISTANT HYDROGENATION STILL OPERATOR Unavailable [phone] Louisa Hood FIRST ASSISTANT HYDROGENATION STILL OPERATOR Unavailable [phone] Se Levy [facility] Unavailable Unavailable Clari Ruiz [facility] Unavailable [phone] Angel Hannah MD Unavailable Lesly Celaya MD Unavailable Tawana Patel MA Unavailable Unavailable Ramses Mcpherson MD Unavailable [phone] Obdulio Barrera MD Unavailable [phone] Obdulio Barrera MD Unavailable [phone] Lesvia Stanley Unavailable Marilia Deluna PhD Unavailable Niyah Decker [facility] Unavailable Clari Poole [facility] Unavailable Lesvia Stanley Unavailable JosephClari jay [facility] Unavailable Israkb Niyah Vania RN Unavailable Austin Delia Mel [facility] Unavailable [phone] Mandt, Delia Mel RPH Unavailable [phone] Schweivictorino Niyah Caro [facility] Unavailable JamisonMago [facility] Unavailable SchweiNiyah gleason [facility] Unavailable EvertonLeela davis [facility] Unavailable SchwNiyah gleason [facility] Unavailable Marvin Miranda MD Unavailable Marvin Miranda MD Unavailable Joseph Clari Munguiae [facility] Unavailable [phone] Reason for Visit Reason Onset Date Comments Call Back 03/23/2022 URGENT Encounter Details Date Type Department Care Team Description 03/23/2022 [facility]phone [facility] Call Anam k ([facility]GENT ) [facility] Jaquan fidencio Bailey MD [address] [place] [address] [place] [address] (Wo rk) Social History Tobacco Use Types [...] How often do you attend anabaptism or taoism services? Never 08/05/2021 Do you [...] at Date Recorded Female 11/09/2021 7:53 PM LAB REP COVID-19 Exposure Response Date Recorded In the last 10 days, have you been in contact with No / Unsu re 03/25/2022 9:33 AM CDT someone who was confirmed or suspected to have Coronavirus/COVID-19? documented as of this encounter Miscellaneous Notes Telephone Encounter - Ninoska Cm - 03/23/2022 8:34 AM CDT Health Call Center Phone Message May a detailed [...] MD 420 [facility] 276 [place], [place] [address] (Wo rk) 10/25/2022 PRE VISIT ENT Charo Burton MD Previsit [address] [place] [address] [phone] (Wo rk) 10/25/2022 Office Visit ENT Charo Burton MD [address] [place] [address] [phone] (Wo rk) 10/25/2022 Office Visit ENT Provider, Jeannette Ent Dysphonia Family Law Paralegal 10/25/2022 Virtual Visit Pain & Palliative Care [place] [address] [place], [place] [address] 10/28/2022 Appointment Speech Therapy Anabel Chew, PHLEBOTOMY TECHNICIAN [address] [place], [place] [address] (Wo rk) 11/17/2022 Appointment Speech Therapy Anabel Chew, PHLEBOTOMY TECHNICIAN [address] 499615 (Wo rk) 12/01/2022 Office Visit Pain & [place] [address] [place], [place] [address] (Wo rk) 12/23/2022 Office Visit Neurology Colby Yeung MD [address] [address] (Wo rk) documented as of this encounter Visit Diagnoses Not on filedocumented in this encounter Additional Health Concerns Infection Onset Date Last Indicated Resolved Time Rule Out Pertussis 04/05/2022 04/05/2022 04/06/2022 10 :34 AM CDT Assessment Noted Time PHQ-9 Depression Total Score: 16 03/19/2022 7:03 AM CD T documented as of this encounter Care Teams Beer Brewer Relationship Specialty Start Date End Date Aydee Burton PCP - General Nurse Practitioner - 05/17/21 ELADIO Mendez HYDROGENATION STILL OPERATOR Family [address] [place], [place] [phone] Aydee Burton Assigned PCP 04/28/21 ELADIO Mendez HYDROGENATION STILL OPERATOR 4151 [place] [address] Louisa Hood Assigned Neuroscience 07/11/21 ELADIO Recinos HYDROGENATION STILL OPERATOR Provider 500 [place] [address] Se Levy, Lead Packer 08/05/21 05/12/22 Clari Francois Pharmacist Pharmacist 08/06/21 06/07/22 [facility] [address] [place] [address] [place], Assigned Sleep 08/01/21 Angel Turcios, Provider [address] [place] [address] Lesly Celaya MD Assigned Surgical 09/05/21 [address] [place] [place] [address] [facility] 09/30/21 Ramses Brewster Assigned OBGYN 11/07/21 MD Onesimo Provider [address] [place] [address] Obdulio Barrera MD Critical Care 01/24/22 MD Leo 420 [facility] [address] [place], [place] [phone] Obdulio Barrera Assigned Pulmonology 02/06/22 MD Leo Provider 420 [facility] 276 [place], [place] [address] Lesvia Stanley, Cardiac Rehabilitation 03/03/22 03/03/23 EP Therapist [facility] [address] [place] [address] Marilia Deluna, Assigned Behavioral 02/20/22 [facility] Health Provider [address] [place], [place] [address] Niyah Decker, [facility] Pharmacist Pharmacist 03/07/22 420 [facility] 812 [place] [address] Clari Poole, Pharmacist Pharmacist 03/07/22 06/15/22 [facility] [address] [facility] [address] [place] [phone] Lesvia Stanley, Cardiac Rehabilitation 03/17/22 03/17/23 EP Therapist [facility] [address] [place] [place] [address] Clari Ruiz Assigned MTM 04/09/22 05/27/22 Jocelyn [facility] Pharmacist [address] [place] [address] Niyah Warner, Lead Packer Primary Care - CC 06/27/22 RN Delia Avila Pharmacist Pharmacist 06/07/22 Mel [facility] 909 [place] [address] Delia Avila Assigned MTM 06/11/22 06/24/22 Mel [facility] Pharmacist 9[address] [place] [address] Niyah Decker, [facility] Assigned MTM 05/28/22 06/10/22 420 [facility] Pharmacist 812 [place], [place] [phone] Mago Swift, Lead Packer Instructional Technology Specialist - 08/05/21 [facility] Clinical Niyah Decker [facility] Assigned MTM 06/25/22 07/29/22 420 [facility] Pharmacist 812 [place] [address] Leela Jarvis [facility] Pharmacist 07/26/22 05/15/23 [address] [facility] [address] [place] [phone] Niyah Decker [facility] Assigned MTM 08/10/22 09/16/22 420 [facility] Pharmacist 812 [place], [place] [address] Marvin Miranda MD Gastroenterology 09/21/[address] [place], [place] [address] Marvin Miranda, Assigned 10/01/22 Gastroenterology [address] [facility] Provider [address] [place], [place] [address] Clari Ruiz Assigned MTM 09/17/22 Jocelyn [facility] Pharmacist [address] [facility] [address] [place], [place] [address] documented as of this encounter
--- OUTSIDE RECORDS SUMMARY | 2022-10-21 08:55 | XMS_ITS | Encounter Summary ---
:1980 Author Organization [facility] Address [address] [place] [address] Care Team Providers Name Role Phone Aydee Burton MODEL TECHNICIAN RIGHT OF WAY SUPERVISOR Primary Care Provider [phone] Aydee Burton MODEL TECHNICIAN RIGHT OF WAY SUPERVISOR Unavailable [phone] Louisa Hood MODEL TECHNICIAN RIGHT OF WAY SUPERVISOR Unavailable [phone] Se Levy [facility] Unavailable Unavailable Clari Ruiz [facility] Unavailable [phone] Angel Hannah MD Unavailable Lesly Celaya MD Unavailable Tawana Patel MA Unavailable Unavailable Ramses Mcpherson MD Unavailable [phone] Obdulio Barrera MD Unavailable Obdulio Barrera MD Unavailable [phone] Lesvia Stanley Unavailable Marilia Deluna PhD Unavailable Niyah Decker [facility] Unavailable Clari Poole [facility] Unavailable JadenLesvia Esther Unavailable Jamison Mago M [facility] Unavailable Reason for Visit Reason Onset Date Comments Patient Request for Note/Letter 03/16/2022 Encounter Details Date Type Department Care Team Description 03/16/2022 [facility]phone [facility] Re [facility] for [facility] [place] ELADIO Mendez RIGHT OF WAY SUPERVISOR Note/Letter [address] [address] [place], [place] [phone] (Wo rk) [address] [phone] Social History Tobacco Use Types Packs/Day Years [...] How often do you attend islam or restorationism services? 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 HR sent it to her cosmetic manager. She talked with her cosmetic manager yesterday, Monday. She said she has to go back and talk to HR. Lathing Supervisor said she has to go over work [...] to review and advise. Abril Castaneda RN [place] Triage Telephone Encounter - Aydee Burton APRN CNP - 03/16/2022 12:57 PM CDT Images from [...] she wants to discuss further. Aydee Burton, TARA-NICOLE Telephone Encounter - Ziyad Frausto - 03/16/2022 [...] 10/21/2022 Office Visit Pulmonology Obdulio Barrera MD [address] [place] [address] (Estefanía casanova) 10/25/2022 PRE VISIT ENT Charo Butron MD Previsit [address] [place] [address] (Estefanía casanova) 10/25/2022 Office Visit Charo Carter MD [address] [place] [address] (Estefanía casanova) 10/25/2022 Office Visit ENT Provider, Jeannette Ent Dysphonia Clinical Systems Analyst 10/25/2022 Virtual Visit Pain & Palliative [place] [address] [place], [place] [address] 10/28/2022 Appointment Speech Therapy Anabel Chew, AWNING HANGER SUPERVISOR [address] [phone] (Wo rk) 11/17/2022 Appointment Speech Therapy Anabel Chew, AWNING HANGER SUPERVISOR [address] [phone] (Wo rk) 12/01/2022 Office Visit Pain & [place] [address] [place], [place] [address] (Wo rk) 12/23/2022 Office Visit Neurology Colby Yeung MD [address] [place] [address]215 (Wo rk) documented as of this encounter Visit Diagnoses Not on filedocumented in this encounter Additional Health Concerns Assessment Noted Time PHQ-9 Depression Total Score: 20 03/02/2022 7:02 AM CD T documented as of this encounter Care Teams Dental Resident Relationship Specialty Start Date End Date Aydee Burton, PCP - General Nurse Practitioner - 05/17/21 MODEL TECHNICIAN RIGHT OF WAY SUPERVISOR Family [address] [place] [address] 246502 Aydee Burton, Assigned PCP 04/28/21 MODEL TECHNICIAN RIGHT OF WAY SUPERVISOR [address] [place] [address] 817452 Louisa Hood, Assigned Neuroscience 07/11/21 MODEL TECHNICIAN RIGHT OF WAY SUPERVISOR Provider [address] [place] [address] Se Levy, Lead Family Service Assistant 08/05/21 05/12/22 Clari Francois Pharmacist Pharmacist 08/06/21 06/07/22 Jocelyn [facility] [address] [place], [place] [address] [place], Assigned Sleep 08/01/21 Angel Turcios, Provider [address] [place], [place] [address] Lesly Celaya MD Assigned Surgical 09/05/21 [address] [facility] Provider [place], [place] [address] Tawana Patel MA [facility] 09/30/21 Worker Ramses Mcpherson Assigned OBGYN 11/07/21 MD Onesimo Provider [address] [place] [phone] Obdulio Barrera MD Critical Care 01/24/[address] [place] [address] 276 [place], [place] [address] Obdulio Barrera, Assigned Pulmonology 02/06/22 MD Provider [address] [place] [address] 276 [place] [address] Lesvia Stanley EP Cardiac Rehabilitation 03/03/22 03/03/23 [facility] Therapist [address] [place] [place] [address] Marilia Deluna, PhD Assigned Behavioral 02/20/22 [address] [facility] Health Provider [place], [place] [address] Niyah Decker, [facility] Pharmacist Pharmacist 03/07/22 420 [facility] 812 [place], [place] [address] Clari Poole, Pharmacist Pharmacist 03/07/22 06/15/22 [facility] [address] [place] [address] Lesvia Stanley EP Cardiac Rehabilitation 03/17/22 03/17/23 [facility] Therapist [address] [address] Mago Swift CLERK TELEGRAPH SERVICE Lead Family Service Assistant Livestock Broker - 08/05/21 Clinical documented as of this encounter
--- OUTSIDE RECORDS SUMMARY | 2022-10-21 08:55 | XMS_ITS | Encounter Summary ---
:1980 Author Organization [facility] Address [address] [place] [address] Care Team Providers Name Role Phone Aydee Burton BROODMARE FOREMAN GOLF RANGE ATTENDANT Primary Care Provider Aydee Burton BROODMARE FOREMAN GOLF RANGE ATTENDANT Unavailable [phone] Louisa Hood BROODMARE FOREMAN GOLF RANGE ATTENDANT Unavailable [phone] Se Levy [facility] Unavailable Unavailable Clari Ruiz [facility] Unavailable [phone] Angel Hannah MD Unavailable Lesly Celaya MD Unavailable Tawana Patel MA Unavailable Unavailable Ramses Mcpherson MD Unavailable [phone] Obdulio Barrera MD Unavailable [phone] Obdulio Barrera MD Unavailable [phone] Lesvia Stanley Unavailable Marilia Deluna PhD Unavailable Niyah Decker [facility] Unavailable Clari Poole [facility] Unavailable StarlaLesvia mas Unavailable JamisonMago [facility] Unavailable Reason for Visit Reason Comments gene sight testing Encounter Details Date Type Department Care Team Description 03/29/2022 Virtual Visit [facility] Lory Nunez P TSD (post- traumatic stress disorder) (Primary Dx); [facility] PA-C Severe episode of recurrent major depres sive disorder, without psychotic features (H); [address] [place] [address] (g eneralized anxiety disorder) [place], [place] [id number] [phone] Social History Tobacco Use Types Packs/Day Years [...] How often do you attend nondenominational or adventism services? 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 Lory Nunez PA-C [facility] Arturo Lozano is a 42 year old who [...] -seesher every 3 months: Monsurat ???Haylee?? Ngozi-Ritu HENDRICKS, GOLF RANGE ATTENDANT, PMHNP-[facility], [place] [address] FAX: Review of Systems Constitutional, HEENT, cardiovascular, [...] (pt. Location): Home Distant Location (provider location): [facility] Platform used for Video Visit: Synerscope documented in this encounter Plan of Treatment Upcoming Encounters Date Type Specialty Care Team Description 10/21/2022 Office Visit Pulmonology Obdulio Barrera MD [address] [phone] (Wo rk) 10/25/2022 PRE VISIT ENT Charo Burton MD Previsit [address] [place] [address] (Wo rk) 10/25/2022 Office Visit ENT Charo Burton MD [address] [place] [address] [phone] (Wo rk) 10/25/2022 Office Visit ENT Provider, Ent Dysphonia Expeditionary Fighting Vehicle Crewman 10/25/2022 Virtual Visit Pain & Palliative [place] [address] [place], [place] [address] 10/28/2022 Appointment Speech Therapy Anabel Chew, UTILITY LINEMAN [address] 733085 (Wo rk) 11/17/2022 Appointment Speech Therapy Anabel Chew, UTILITY LINEMAN [address] 725925 (Wo rk) 12/01/2022 Office Visit Pain & [place] [address] [place], [place] [address] (Wo rk) 12/23/2022 Office Visit Neurology Colby Yeung MD [address] 759845 (Wo rk) documented as of this encounter Results [facility] Psychotropic (04/02/2022) P athologist Signature See Scanned [facility] Report Specimen (Source) Anatomical Location Collection Method / Collectio n Time Received Time / Laterality Volume Buccal swab ORAL CAVITY 04/02/2022 STRUCTURE / Unknown Narrative This result has an attachment that is no t available. Lory TANNER-Ynes LAB - BODY FLUIDS ORDERABLES Performing Organization Address City/State/ZIP Code Phon e Number [facility] [address] [place] [address] (ABNORMAL) [facility] MTHFR (04/02/2022) P athologist Signature See Scanned [facility] Report Specimen (Source) Anatomical Location Collection Method / Collectio n Time Received Time / Laterality Volume Buccal swab ORAL CAVITY 04/02/2022 STRUCTURE / Unknown Narrative This result has an attachment that is no t available. Lory Nunez PA-C LAB - BODY FLUIDS ORDERABLES Performing Organization Address City/[facility]/ZIP Code Phon e Number [facility] [address] [place] [address] documented in this encounter Visit Diagnoses Diagnosis PTSD (post-traumatic stress disorder) - Primary Posttraumatic stress disorder Severe episode of recurrent major depres sive disorder, without psychotic features (H) [place] (generalized anxiety disorder) Generalized anxiety disorder documented in this encounter Additional Health Concerns Assessment Noted Time PHQ-9 Depression Total Score: 16 03/25/2022 7:29 AM CD T documented as of this encounter Care Teams Websphere Commerce Developer Relationship Specialty Start Date End Date Aydee Burton, PCP - General Nurse Practitioner - 05/17/21 BROODMARE FOREMAN GOLF RANGE ATTENDANT Family [address] [place] [address] [phone] Aydee Burton, Assigned PCP 04/28/21 BROODMARE FOREMAN [address] [phone] Louisa Hood, Assigned Neuroscience 07/11/21 BROODMARE FOREMAN GOLF RANGE ATTENDANT Provider [address] [place] [address] Se Levy, Lead Nurse Practitioner Per Diem 08/05/21 05/12/22 [facility] Clari Ruiz Pharmacist Pharmacist 08/06/21 06/07/22 [facility] [address] [place] [address] [place], Assigned Sleep 08/01/21 Angel Turcios, Provider [address] [place] [address] Lesly Celaya MD Assigned Surgical 09/05/21 [address] [facility] [place] [address] Tawana Patel [facility] 09/30/21 Worker Ramses Mcpherson Assigned OBGYN 11/07/21 MD Onesimo Provider [address] [place] [address] Obdulio Barrera MD Critical Care 01/24/[address] [place] [address] 276 [place] [address] Obdulio Barrera, Assigned Pulmonology 02/06/22 Provider 420 [facility] 276 [place] [address] Lesvia Stanley EP Cardiac Rehabilitation 03/03/22 03/03/23 [facility] Therapist [address] [address]54[address] Marilia Deluna, PhD Assigned Behavioral 02/20/22 [address] [facility] [place] [address] Niyah Decker, [facility] Pharmacist Pharmacist 03/07/22 420 [facility] 812 [place], [place] [address] Clari Poole, Pharmacist Pharmacist 03/07/22 06/15/22 [facility] [address] [facility] [address] [place] [phone] Lesvia Stanley EP Cardiac Rehabilitation 03/17/22 03/17/23 [facility] Therapist [address] [address] Mago Swift, [facility] Lead Nurse Practitioner Per Diem Customer Data Technician - 08/05/21 Clinical documented as of this encounter
--- OUTSIDE RECORDS SUMMARY | 2022-10-21 08:55 | XMS_ITS | Encounter Summary ---
:1980 Author Organization [facility] Address [address] [place] [address] Care Team Providers Name Role Phone Aydee Burton CHARGE WEIGHER DISPOSAL MAN Primary Care Provider Aydee Burton CHARGE WEIGHER DISPOSAL MAN Unavailable [phone] Louisa Hood CHARGE WEIGHER DISPOSAL MAN Unavailable [phone] Se Levy [facility] Unavailable Unavailable Clari Ruiz [facility] Unavailable [phone] Angel Hannah MD Unavailable Lesly Celaya MD Unavailable Tawana Patel MA Unavailable Unavailable Ramses Mcpherson MD Unavailable [phone] Obdulio Barrera MD Unavailable [phone] Obdulio Barrera MD Unavailable [phone] Lesvia Stanley Unavailable Marilia Deluna PhD Unavailable Niyah Decker [facility] Unavailable Clari Poole [facility] Unavailable JamisonMago [facility] Unavailable Encounter Details Date Type Department Care [...] How often do you attend holiness or adventist services? 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 documented as of this encounter Plan of Treatment Upcoming Encounters Date Type Specialty Care Team Description 10/21/2022 Office Visit Pulmonology Obdulio Barrera MD 420 [facility] 276 [place], [place] [address]285 (Wo rk) 10/25/2022 PRE VISIT ENT Charo Burton MD Previsit [address] [place] [address] 147055 (Wo rk) 10/25/2022 Office Visit ENT Charo Burton MD [address] [place] [address] 195875 (Wo rk) 10/25/2022 Office Visit ENT Provider, Ent Dysphonia Baking Powder Mixer 10/25/2022 Virtual Visit Pain & Palliative Care [place] [address] [place], [place] [address] 10/28/2022 Appointment Speech Therapy Anabel Chew, TOP STEEP TENDER [address] [place], [place] [address] (Wo rk) 11/17/2022 Appointment Speech Therapy Anabel Chew, TOP STEEP TENDER [address] [place], [place] [phone] (Wo rk) 12/01/2022 Office Visit Pain & [place] [address] [place], [place] [address] (Wo rk) 12/23/2022 Office Visit Neurology Colby Yeung MD [address] [place] [address] (Wo rk) documented as of this encounter Visit Diagnoses Not on filedocumented in this encounter Additional Health Concerns Assessment Noted Time PHQ-9 Depression Total Score: 20 03/02/2022 7:02 AM CD T documented as of this encounter Care Teams Policy Analyst Relationship Specialty Start Date End Date Aydee Burton, PCP - General Nurse Practitioner - 05/17/21 CHARGE WEIGHER DISPOSAL MAN Family [address] [place], [place] [phone] Aydee Burton, Assigned PCP 04/28/21 CHARGE WEIGHER DISPOSAL MAN [address] [place], [place] [phone] Louisa Hood, Assigned Neuroscience 07/11/21 CHARGE WEIGHER DISPOSAL MAN Provider 500 [place], [place] [phone] Se Levy, Lead Lay Out Machine Operator 08/05/21 05/12/22 Clari Francois Pharmacist Pharmacist 08/06/21 06/07/22 [facility] [address] [place], [place] [phone] [place], Assigned Sleep 08/01/21 nAgel Turcios, Provider [address] [place], [place] [address] Lesly Celaya MD Assigned Surgical 09/05/21 [address] Provider [place], [place] [phone] Tawana Patel MA [facility] 09/30/21 Worker Ramses Mcpherson Assigned OBGYN 11/07/21 MD Onesimo Provider [address] [place], [place] [phone] Obdulio Barrera MD Critical Care 01/24/[address] [place] [phone] Obdulio Barrera, Assigned Pulmonology 02/06/22 MD Provider [address] [place] [address] [phone] Lesvia Stanley, GHADA Cardiac Rehabilitation 03/03/22 03/03/23 [facility] Therapist [address] [address] Marilia Deluna, PhD Assigned Behavioral 02/20/22 [address] [facility] Health Provider [place], [place] [phone] Niyah Decker, [facility] Pharmacist Pharmacist 03/07/22 420 [facility] 812 [place], [place] [address] Clari Poole, Pharmacist Pharmacist 03/07/22 06/15/22 [facility] [address] [facility] [address] [place] [phone] Mago Swift, [facility] Lead Lay Out Machine Operator Fire Alarm Technician - 08/05/21 Clinical documented as of this encounter
--- OUTSIDE RECORDS SUMMARY | 2022-10-21 08:55 | XMS_ITS | Encounter Summary ---
:1980 Author Organization [facility] Address [address] [place] [address] Care Team Providers Name Role Phone Aydee Burton ONCOLOGY ACCOUNT SPECIALIST ENVIRONMENTAL MARKETING REPRESENTATIVE Primary Care Provider Aydee Burton ONCOLOGY ACCOUNT SPECIALIST ENVIRONMENTAL MARKETING REPRESENTATIVE Unavailable [phone] Louisa Hood ONCOLOGY ACCOUNT SPECIALIST ENVIRONMENTAL MARKETING REPRESENTATIVE Unavailable [phone] Se Levy [facility] Unavailable Unavailable Clari Ruiz [facility] Unavailable [phone] Angel Hannah MD Unavailable Lesly Celaya MD Unavailable Tawana Patel MA Unavailable Unavailable Ramses Mcpherson MD Unavailable [phone] Obdulio Barrera MD Unavailable [phone] Obdulio Barrera MD Unavailable Lesvia Stanley Unavailable Marilia Deluna PhD Unavailable Niyah Decker [facility] Unavailable Clari Poole [facility] Unavailable JadenCarlitoswalter Santana Unavailable JamisonMago [facility] Unavailable Encounter Details Date [...] at Date Recorded Female 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 documented as of this encounter Plan of Treatment Upcoming Encounters Date Type Specialty Care Team Description 10/21/2022 Office Visit Pulmonology Obdulio Barrera MD [address] [address] (Wo rk) 10/25/2022 PRE VISIT ENT Charo Burton MD Previsit [address] [place] [address] [phone] (Wo rk) 10/25/2022 Office Visit ENT Charo Burton MD [address] [place] [address] [phone] (Wo rk) 10/25/2022 Office Visit ENT Provider, Ent Dysphonia Traffic Control Technician 10/25/2022 Virtual Visit Pain & Palliative [place] [address] [place], [place] [address] 10/28/2022 Appointment Speech Therapy Anabel Chew, SIZING SPRAYER [address] 235085 (Wo rk) 11/17/2022 Appointment Speech Therapy Anabel Chew, SIZING SPRAYER [address] 575985 (Wo rk) 12/01/2022 Office Visit Pain & [place] [address] [place], [place] [address] (Wo rk) 12/23/2022 Office Visit Neurology Colby Yeung MD [address] [address] (Wo rk) documented as of this encounter Visit Diagnoses Not on filedocumented in this encounter Additional Health Concerns Assessment Noted Time PHQ-9 Depression Total Score: 16 03/19/2022 7:03 AM CD T documented as of this encounter Care Teams Project Eng Relationship Specialty Start Date End Date Aydee Burton, PCP - General Nurse Practitioner - 05/17/21 ONCOLOGY ACCOUNT SPECIALIST ENVIRONMENTAL MARKETING REPRESENTATIVE Family [address] [place], [place] [phone] Aydee Burton, Assigned PCP 04/28/21 ONCOLOGY ACCOUNT SPECIALIST ENVIRONMENTAL MARKETING REPRESENTATIVE [address] [place], [place] [phone] Louisa Hood, Assigned Neuroscience 07/11/21 ONCOLOGY ACCOUNT SPECIALIST ENVIRONMENTAL MARKETING REPRESENTATIVE Provider [address] [place], [place] [phone] Se Levy, Lead Afterschool 08/05/21 05/12/22 Clari Francois Pharmacist Pharmacist 08/06/21 06/07/22 [facility] [address] [place], [place] [phone] [place], Assigned Sleep 08/01/21 Angel Turcios, Provider [address] [place], [place] [address] Lesly Celaya MD Assigned Surgical 09/05/21 [address] Provider [place], [place] [address] Tawana Patel MA [facility] 09/30/21 Worker Ramses Mcpherson Assigned OBGYN 11/07/21 MD Onesimo Provider [address] [place] [address] Obdulio Barrera MD Critical Care 01/24/[address] [place] [address] [phone] Obdulio Barrera, Assigned Pulmonology 02/06/[address] [address] Lesvia Stanley, GHADA Cardiac Rehabilitation 03/03/22 03/03/23 [facility] Therapist [address] [address]99[address] Marilia Deluna, PhD Assigned Behavioral 02/20/22 [address] [facility] [place] [place] [address] Niyah Decker, [facility] Pharmacist Pharmacist 03/07/22 420 [facility] 812 [place] [address] Clari Poole, Pharmacist Pharmacist 03/07/22 06/15/22 [facility] [address] [place] [address] Lesvia Stanley, GHADA Cardiac Rehabilitation 03/17/22 03/17/23 [facility] Therapist [address] [phone] Mago Swift COMMERCIAL PAINTER Lead Afterschool Percussion Teacher - 08/05/21 Clinical documented as of this encounter
--- OUTSIDE RECORDS SUMMARY | 2022-10-21 08:55 | XMS_ITS | Encounter Summary ---
:1980 Author Organization [place] Address [address] [place] [address] Care Team Providers Name Role Phone Aydee Burton FLANGING ROLL OPERATOR FIRE ADJUSTER Primary Care Provider Aydee Burton FLANGING ROLL OPERATOR FIRE ADJUSTER Unavailable [phone] Louisa Hood FLANGING ROLL OPERATOR FIRE ADJUSTER Unavailable [phone] Se Levy [facility] Unavailable Unavailable Clari Ruiz [facility] Unavailable [phone] Angel Hannah MD Unavailable Lesly Celaya MD Unavailable Tawana Patel MA Unavailable Unavailable Ramses Mcpherson MD Unavailable [phone] Obdulio Barrera MD Unavailable [phone] Obdulio Barrera MD Unavailable [phone] Lesvia Stanley Unavailable Marilia Deluna PhD Unavailable Niyah Decker [facility] Unavailable Clari Poole [facility] Unavailable Mago Swift [facility] Unavailable Reason for Referral Diagnostic Imaging Mammo (Routine) - Pending Review Specialty Diagnoses / Procedures Referred By Contact Refer red To Contact Diagnoses Abnormal CT scan, chest Breast nodule Aydee Burton APRN Procedures MA Post Procedure Right FIRE ADJUSTER [address] [place] [address] Referral ID Status Reason Start Date Expiration Date Visits V isits Requested Authorized [id number] Pending 03/10/2022 03/10/2023 1 1 Review Reason for Visit Diagnostic Imaging Mammo (Routine) - Pending Review Specialty Diagnoses / Procedures Referred By Contact Refer red To Contact Diagnoses Abnormal CT scan, chest Breast nodule Aydee Burton APRN Procedures MA Post Procedure Right FIRE ADJUSTER [facility] [place] [address] Referral ID Status Reason Start Date Expiration Date Visits V isits Requested Authorized [id number] Pending 03/10/2022 03/10/2023 1 1 Review Encounter Details Date Type Department Care Team Description 03/15/2022 Hospital Encounter [facility] Aydee Burton rmbianca CT scan, chest; [facility] ELADIO Mendez Breast [facility] FIRE ADJUSTER [address], [address] [place] [address] [phone] Social History Tobacco Use Types Packs/Day Years [...] How often do you attend methodist or voodoo services? 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 Results pending. TARA Spivey [facility] TARA Spivey [facility] documented in this encounter Plan of Treatment Upcoming Encounters Date Type Specialty Care Team Description 10/21/2022 Office Visit Pulmonology Obdulio Barrera MD [address] [facility] [address] [place] [address] (Estefanía casanova) 10/25/2022 PRE VISIT ENT Charo Burton MD Previsit [address] [place] [address] (Estefanía casanova) 10/25/2022 Office Visit ENT Charo Burton MD 909 [place], [place] [address] (Wo rk) 10/25/2022 Office Visit ENT Provider, Ent Dysphonia Solid Waste Facility Operator 10/25/2022 Virtual Visit Pain & Palliative [place] [address] [place], [place] [address] 10/28/2022 Appointment Speech Therapy Anabel Chew, PHARMACY INFORMATICS MANAGER [address] [address] (Wo rk) 11/17/2022 Appointment Speech Therapy Anabel Chew, PHARMACY INFORMATICS MANAGER [address] 775655 (Wo rk) 12/01/2022 Office Visit Pain & [place] [address] [place], [place] [address] (Wo rk) 12/23/2022 Office Visit Neurology Colby Yeung MD [address] [place], [place] [address] (Wo rk) documented as of this encounter [...] RIGHT breast. JEREL DAN MD Aydee Burton FLANGING ROLL OPERATOR FIRE ADJUSTER IMG MAMMOGRAPHY ORDERABL ES documented in this encounter Visit Diagnoses Diagnosis Abnormal CT scan, chest Nonspecific (abnormal) findings on radio logical and other examination of other intrathoracic organs Breast nodule Other (abnormal) findings on radiologica l examination of breast documented in this encounter Additional Health Concerns Assessment Noted Time PHQ-9 Depression Total Score: 20 03/02/2022 7:02 AM CD T documented as of this encounter Care Teams Rehabilitation Case Coordinator Relationship Specialty Start Date End Date Aydee Burton, PCP - General Nurse Practitioner - 05/17/21 FLANGING ROLL OPERATOR FIRE ADJUSTER Family [address] [place] [address] Aydee Burton, Assigned PCP 04/28/21 FLANGING ROLL OPERATOR FIRE ADJUSTER [address] [place] [address] Louisa Hood, Assigned Neuroscience 07/11/21 FLANGING ROLL OPERATOR FIRE ADJUSTER Provider 500 [place] [address] Se Levy, Lead Supervisor Properties 08/05/21 05/12/22 Clari Francois Pharmacist Pharmacist 08/06/21 06/07/22 Jocelyn, [facility] [address] [place] [address] [place], Tone Sleep 08/01/21 Angel Turcios, Provider [address] [place] [address] Lesly Celaya MD Assigned Surgical 09/05/21 [address] [place] [address] Tawana Patel MA [facility] 09/30/21 Worker Ramses Mcpherson Assigned OBGYN 11/07/21 MD Onesimo Provider [address] [place] [address] Obdulio Barrera MD Critical Care 01/24/22 [address] [facility] [address] [place] [address] Obdulio Barrera, Assigned Pulmonology 02/06/22 MD Provider [address] [facility] [address] [place] [address] Lesvia Stanley, GHADA Cardiac Rehabilitation 03/03/22 03/03/23 [facility] Therapist [address] [place] [address] Marilia Deluna, PhD Assigned Behavioral 02/20/22 [address] [facility] [place] [address] Niyah Decker, [facility] Pharmacist Pharmacist 03/07/22 420 [facility] 812 [place] [address] Clari Poole, Pharmacist Pharmacist 03/07/22 06/15/22 [facility] [address] [place] [address] [place] [address] Mago Swift, [facility] Lead Supervisor Properties Oyster Washer - 08/05/21 Clinical documented as of this encounter
--- OUTSIDE RECORDS SUMMARY | 2022-10-21 08:55 | XMS_ITS | Encounter Summary ---
:1980 Author Organization [place] Address [address] [place] [address] Care Team Providers Name Role Phone Aydee Burton BALLPOINT PEN ASSEMBLY MACHINE OPERATOR GEOGRAPHIC INFORMATION SCIENTIST Primary Care Provider Aydee Burton BALLPOINT PEN ASSEMBLY MACHINE OPERATOR GEOGRAPHIC INFORMATION SCIENTIST Unavailable [phone] Louisa Hood BALLPOINT PEN ASSEMBLY MACHINE OPERATOR GEOGRAPHIC INFORMATION SCIENTIST Unavailable [phone] Se Levy [facility] Unavailable Unavailable Clari Ruiz [facility] Unavailable [phone] Angel Hannah MD Unavailable Lesly Celaya MD Unavailable Tawana Patel MA Unavailable Unavailable Ramses Mcpherson MD Unavailable [phone] Obdulio Barrera MD Unavailable [phone] Obdulio Barrera MD Unavailable [phone] Lesvia Stanley Unavailable Marilia Deluna PhD Unavailable Niyah Decker [facility] Unavailable Clari Poole [facility] Unavailable Mago Swift [facility] Unavailable Reason for Visit Reason Onset Date Comments Path Results 03/16/2022 03/15/2022 Right Breas t Biopsy Encounter Details Date Type Department Care Team Description 03/16/2022 Telephone [facility] Robles, Zaynab Mo, Path R esults (03/15/2022 [facility] Breast Dafne Oquendo Right Breast Biopsy) [address] [facility], [address] [place] [address] Social History Tobacco Use Types [...] How often do you attend jewish or adventist services? 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 [facility] Marta Hill [id number] F, 1980 Surgical Pathology Report (Final result) [id number] Authorizing Provider: Aydee Burton APRN CNP Ordering Provider: Aydee Burton APRN CNP Ordering Location: [facility] Collected: 03/15/2022 08:22 AM Pathologist: Alea Chong MD Received: 03/15/2022 10:50 AM . Specimens A Breast, Right . . Final Diagnosis Right breast, 1.1 cm mass, 1:00, 6 cm from nipple, ultrasound guided needoe core biopsies: - Fibroadenoma and normal breast tissue. - Negative for atypia and malignancy. Zaynab Arboleda RN BSN Procedure Nurse [facility] [phone] documented in this encounter Plan of Treatment Upcoming Encounters Date Type Specialty Care Team Description 10/21/2022 Office Visit Pulmonology Obdulio Barrera MD [address] [place] [address] [phone] (Wo rk) 10/25/2022 PRE VISIT ENT Charo Burton MD Previsit [address] [place], [place] [address] (Wo rk) 10/25/2022 Office Visit ENT Charo Burton MD [address] [place], [place] [address] (Wo rk) 10/25/2022 Office Visit ENT Provider, Ent Dysphonia Auto Air Conditioning Apprentice 10/25/2022 Virtual Visit Pain & Palliative Care [place] [address] [place], [place] [address] 10/28/2022 Appointment Speech Therapy Anabel Chew, HANDSTITCHING MACHINE ARMHOLE FELLER [address] 644955 (Wo rk) 11/17/2022 Appointment Speech Therapy Anabel Chew, HANDSTITCHING MACHINE ARMHOLE FELLER [address] 227565 (Wo rk) 12/01/2022 Office Visit Pain & [place] [address] [place], [place] [address] (Wo rk) 12/23/2022 Office Visit Neurology Colby Yeung MD [address] [place] [address] (Wo rk) documented as of this encounter Visit Diagnoses Not on filedocumented in this encounter Additional Health Concerns Assessment Noted Time PHQ-9 Depression Total Score: 20 03/02/2022 7:02 AM CD T documented as of this encounter Care Teams Commercial Litigation Paralegal Relationship Specialty Start Date End Date Aydee Burton, PCP - General Nurse Practitioner - 05/17/21 BALLPOINT PEN ASSEMBLY MACHINE OPERATOR GEOGRAPHIC INFORMATION SCIENTIST Family [address] [place] [address] Aydee Burton, Assigned PCP 04/28/21 BALLPOINT PEN ASSEMBLY MACHINE OPERATOR GEOGRAPHIC INFORMATION SCIENTIST [address] [place], [place] [phone] ErwinLouisa Grisel, Assigned Neuroscience 07/11/21 BALLPOINT PEN ASSEMBLY MACHINE OPERATOR GEOGRAPHIC INFORMATION SCIENTIST Provider [address] [place], [place] [phone] Se Levy, Lead Embedded Firmware Engineer 08/05/21 05/12/22 Clari Francois Pharmacist Pharmacist 08/06/21 06/07/22 [facility] [address] [place] [address] [place], Assigned Sleep 08/01/21 Angel Turcios, Provider [address] [place] [address] Lesly Celaya MD Assigned Surgical 09/05/21 [address] [place] [place] [address] Tawana Patel [facility] 09/30/21 Worker Ramses Mcpherson Assigned OBGYN 11/07/21 MD Onesimo Provider [address] [place], [place] [phone] Obdulio Barrera MD Critical Care 01/24/[address] [address] Obdulio Barrera, Assigned Pulmonology 02/06/[address] 859995 Lesvia Stanley EP Cardiac Rehabilitation 03/03/22 03/03/23 [facility] Therapist [address] [place] [address] Marilia Deluna, PhD Assigned Behavioral 02/20/22 [address] [facility] [place] [address] Niyah Decker, [facility] Pharmacist Pharmacist 03/07/22 [address] [facility] 812 [place], [place] [phone] Clari Poole, Pharmacist Pharmacist 03/07/22 06/15/22 [facility] [address] [facility] [address] [place] [place] [phone] Mago Swift, [facility] Lead Embedded Firmware Engineer Oven Drier Tender - 08/05/21 Clinical documented as of this encounter
--- OUTSIDE RECORDS SUMMARY | 2022-10-21 08:55 | XMS_ITS | Encounter Summary ---
:1980 Author Organization [place] Address [address] [place] [address] Care Team Providers Name Role Phone Aydee Burton TIE LOADER SITE PROMOTION AGENT Primary Care Provider Aydee Burton TIE LOADER SITE PROMOTION AGENT Unavailable [phone] Louisa Hood TIE LOADER SITE PROMOTION AGENT Unavailable [phone] Se Levy [facility] Unavailable Unavailable Clari Ruiz [facility] Unavailable [phone] Angel Hannah MD Unavailable Lesly Celaya MD Unavailable Tawana Patel MA Unavailable Unavailable Ramses Mcpherson MD Unavailable [phone] Obdulio Barrera MD Unavailable [phone] Obdulio Barrera MD Unavailable [phone] Lesvia Stanley Unavailable Marilia Deluna PhD Unavailable Niyah Decker [facility] Unavailable Clari Poole [facility] Unavailable JadenCarlitoswalter Santana Unavailable JamisonMago [facility] Unavailable Encounter Details Date Type [...] How often do you attend mormonism or sikh services? 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 documented as of this encounter Plan of Treatment Upcoming Encounters Date Type Specialty Care Team Description 10/21/2022 Office Visit Pulmonology Obdulio Barrera MD [address] [phone] (Wo rk) 10/25/2022 PRE VISIT ENT Charo Burton MD Previsit [address] [place] [address]915 (Wo rk) 10/25/2022 Office Visit ENT Charo Burton MD [address] [place] [address] 688195 (Wo rk) 10/25/2022 Office Visit ENT Provider, Ent Dysphonia Civil Design Technician 10/25/2022 Virtual Visit Pain & Palliative Care Marilia Deluna, PhD [address] [place], [place] [address] 10/28/2022 Appointment Speech Therapy Anabel Chew, LINER MAN [address] 463295 (Wo rk) 11/17/2022 Appointment Speech Therapy Anabel Chew, LINER MAN [address] [address] (Wo rk) 12/01/2022 Office Visit Pain & [place] [address] [place], [place] [address] (Wo rk) 12/23/2022 Office Visit Neurology Colby Yeung MD [address] [address] (Wo rk) documented as of this encounter Visit Diagnoses Not on filedocumented in this encounter Additional Health Concerns Assessment Noted Time PHQ-9 Depression Total Score: 16 03/19/2022 7:03 AM CD T documented as of this encounter Care Teams Photogrammetric Compilation Specialist Relationship Specialty Start Date End Date Aydee Burton, PCP - General Nurse Practitioner - 05/17/21 TIE LOADER SITE PROMOTION AGENT Family [address] [place], [place] [phone] Aydee Burton, Assigned PCP 04/28/21 TIE LOADER SITE PROMOTION AGENT [address] [place], [place] [phone] Louisa Hood, Assigned Neuroscience 07/11/21 TIE LOADER SITE PROMOTION AGENT Provider [address] [place], [place] [phone] Se Levy, Lead Concrete Engineering Technician 08/05/21 05/12/22 Clari Francois Pharmacist Pharmacist 08/06/21 06/07/22 [facility] [address] [place], [place] [phone] [place], Assigned Sleep 08/01/21 Angel Turcios, Provider [address] [place], [place] [address] Lesly Celaya MD Assigned Surgical 09/05/21 [address] Provider [place], [place] [address] Tawana Patel MA [facility] 09/30/21 Worker Ramses Mcpherson Assigned OBGYN 11/07/21 MD Onesimo Provider [address] [place] [address] Obdulio Barrera MD Critical Care 01/24/[address] [place] [address] Obdulio Barrera, Assigned Pulmonology 02/06/[address] [address] Lesvia Stanley, GHADA Cardiac Rehabilitation 03/03/22 03/03/23 [facility] Therapist [address] [address] Marilia Deluna, PhD Assigned Behavioral 02/20/22 [address] [facility] [place] [place] [address] Niyah Decker, [facility] Pharmacist Pharmacist 03/07/22 420 [facility] [address] [place] [address] Clari Poole, Pharmacist Pharmacist 03/07/22 06/15/22 [facility] [address] [place] [address] Lesvia Stanley, GHADA Cardiac Rehabilitation 03/17/22 03/17/23 [facility] Therapist [address] [address] Mago Swift DIGGING MACHINE OPERATOR Lead Concrete Engineering Technician Sales Development Specialist - 08/05/21 Clinical documented as of this encounter
--- OUTSIDE RECORDS SUMMARY | 2022-10-21 08:55 | XMS_ITS | Encounter Summary ---
:1980 Author Organization [place] Address [address] [place] [address] Care Team Providers Name Role Phone Aydee Burton DRY LUMBER GRADER FLAKE MILLER WHEAT AND OATS Primary Care Provider Aydee Burton DRY LUMBER GRADER [employer] Unavailable [phone] Louisa Hood DRY LUMBER GRADER [employer] Unavailable [phone] Se Levy [facility] Unavailable Unavailable Clari Ruiz [facility] Unavailable [phone] Angel Hannah MD Unavailable Lesly Celaya MD Unavailable Tawana Patel MA Unavailable Unavailable Ramses Mcpherson MD Unavailable [phone] Obdulio Barrera MD Unavailable [phone] Obdulio Barrera MD Unavailable [phone] Lesvia Stanley Unavailable Marilia Deluna PhD Unavailable Niyah Decker [facility] Unavailable Clari Poole [facility] Unavailable Lesvia Stanley Unavailable Mago Swift [facility] Unavailable Reason for Referral Consultation (Routine: Next available opening) - Referral NOT Required Specialty Diagnoses / Procedures Referred By Contact Refer red To Contact Allergy Diagnoses Chronic cough Bronchospasm Chest tightness Aydee Burton, [facility] DRY LUMBER GRADER [employer] of [address] [address] [place] [address] [place] [phone] Phone: Referral ID Status Reason Start Date Expiration Date Visits V isits Requested Authorized [id number] Referral NOT 03/18/2022 03/18/2023 1 1 Required Consultation (Priority: 1-2 Weeks) - Referral NOT Required Specialty Diagnoses / Procedures Referred By Contact Refer red To Contact Otolaryngology Diagnoses Chronic cough Aydee Burton, [facility] ELADIO [employer] [facility] of [address] [place] [address] [address] [place] [address]13517 Phone: Referral ID Status Reason Start Date Expiration Date Visits V isits Requested Authorized [id number] Referral NOT 03/18/2022 03/18/2023 1 1 Required Reason for Visit Reason Comments needs letter to return to work Encounter Details Date Type Department Care Team Description 03/18/2022 [facility] SOB (shor tness of breath) (Primary Dx); [facility] ELADIO Mendez CNP Chronic cough; [address] [place] [address] ospa; [facility] Chest pain, unspecified type; [place], [place] [address] Chest tightness [phone] Social History Tobacco Use Types Packs/Day Years [...] How often do you attend orthodoxy or methodist services? 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 documented as of this encounter Patient Instructions Patient InstructionsAydee Burton APRN [employer] - 03/18/2022 4:57 PM CDT Laryngopharyngeal reflux [...] Comment: Your provider has referred you to: [facility]: [facility] [email or web address] [facility] [address] [address] AttachmentsThe following attachments cannot be sent through Care Everywhere. Cough, Chronic, Uncertain Cause (Adult) (Bengali)documented in this encounter Progress Notes Aydee Burton [...] omeprazole. ENT to rule out laryngeal issue. Tower Control Operator for consult on allergies contributing; recommend getting [...] weeks (around 04/01/2022) for Recheck. Aydee Burton APRN [facility] Marta is a 42 year [...] She is taking medications regularly. 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 Location): Home Distant Location (provider location): [facility] Platform used for Video Visit: Becka documented in this encounter Plan of Treatment Upcoming Encounters Date Type Specialty Care Team Description 10/21/2022 Office Visit Pulmonology Obdulio Barrera MD [address] [place] [address]265 (Estefanía casanova) 10/25/2022 PRE VISIT ENT Charo Burton MD Previsit [address] [place] [address] [phone] (Estefanía casanova) 10/25/2022 Office Visit Charo Carter MD [address] [place] [address] [phone] (Estefanía casanova) 10/25/2022 Office Visit ENT Provider, Jeannette Ent Dysphonia Delivery Manager 10/25/2022 Virtual Visit Pain & Palliative Care [place] [address] [place], [place] [address] 10/28/2022 Appointment Speech Therapy Anabel Chew, FORCE DISPATCHER [address] [address] (Wo rk) 11/17/2022 Appointment Speech Therapy Anabel Chew SLP [address] [address] (Wo rk) 12/01/2022 Office Visit Pain [place] [address] [place], [place] [address] (Wo rk) 12/23/2022 Office Visit Neurology Colby Yeung MD [address] [place], [place] [address] (Wo rk) Scheduled Referrals Name Type Priority [...] unspecified type Chest tightness Other chest pain documented in this encounter Additional Health Concerns Assessment Noted Time PHQ-9 Depression Total Score: 16 03/19/2022 7:03 AM CD T documented as of this encounter Care Teams Centrifugal Spinner Relationship Specialty Start Date End Date Aydee Burton, PCP - General Nurse Practitioner - 05/17/21 DRY LUMBER GRADER [employer] Family [address] [place], [place] [address] Aydee Burton, Assigned PCP 04/28/21 DRY LUMBER GRADER [employer] [address] [place], [place] [address]852 Louisa Hood, Assigned Neuroscience 07/11/21 DRY LUMBER GRADER [employer] Provider [address] [place], [place] [address] Se Levy, Lead Windscreen Fitter 08/05/21 05/12/22 Clari Francois Pharmacist Pharmacist 08/06/21 06/07/22 Jocelyn, [facility] [address] [place] [address] [place], Assigned Sleep 08/01/21 Angel Turcios, Provider [address] [place] [address] Lesly Celaya MD Assigned Surgical 09/05/21 [address] [facility] Provider [place], [place] [phone] Tawana Patel [facility] 09/30/21 Worker Ramses Mcpherson Assigned OBGYN 11/07/21 MD Onesimo Provider [address] [place] [address] Obdulio Barrera MD Critical Care 01/24/[address] [place] [address]45[address] Obdulio Barrera, Assigned Pulmonology 02/06/[address] [place] [address] 652785 Lesvia Stanley EP Cardiac Rehabilitation 03/03/22 03/03/23 [facility] Therapist [address] [place] [address] Marilia Deluna, PhD Assigned Behavioral 02/20/22 [address] [facility] Provider [place], [place] [phone] Niyah Decker, [facility] Pharmacist Pharmacist 03/07/22 [address] [facility] [address] [place] [address] Clari Poole, Pharmacist Pharmacist 03/07/22 06/15/22 [facility] [address] [place] [address] Lesvia Stanley EP Cardiac Rehabilitation 03/17/22 03/17/23 [facility] Therapist [address] [address] Mago Swift, [facility] Lead Windscreen Fitter Rehabilitation Services Aide - 08/05/21 Clinical documented as of this encounter
--- OUTSIDE RECORDS SUMMARY | 2022-10-21 08:56 | XMS_ITS | Encounter Summary ---
:1980 Author Organization [place] Address [address] [place] [address] Care Team Providers Name Role Phone Aydee Burton RESIDENTIAL SUPERVISOR RUG DRYING MACHINE OPERATOR Primary Care Provider Aydee Burton RESIDENTIAL SUPERVISOR RUG DRYING MACHINE OPERATOR Unavailable [phone] Louisa Hood RESIDENTIAL SUPERVISOR RUG DRYING MACHINE OPERATOR Unavailable [phone] Se Levy [facility] Unavailable Unavailable Clari Ruiz [facility] Unavailable [phone] Angel Hannah MD Unavailable Lesly Celaya MD Unavailable Tawana Patel MA Unavailable Unavailable Ramses Mcpherson MD Unavailable [phone] Obdulio Barrera MD Unavailable [phone] Obdulio Barrera MD Unavailable [phone] Lesvia Stanley Unavailable Marilia Deluna PhD Unavailable Niyah Decker [facility] Unavailable Clari Poole [facility] Unavailable Mago Swift [facility] Unavailable Reason for Referral Diagnostic Imaging Mammo (Routine) - Pending Review Specialty Diagnoses / Procedures Referred By Contact Refer red To Contact Diagnoses Abnormal CT scan, chest Breast nodule Aydee Burton APRN Procedures MA Diagnostic with Implants Bilateral w/Matias RUG DRYING MACHINE OPERATOR [address] [place] [id number] Referral ID Status Reason Start Date Expiration Date Visits V isits Requested Authorized [id number] Pending 03/08/2022 03/08/2023 1 1 Review Reason for Visit Diagnostic Imaging Mammo (Routine) - Pending Review Specialty Diagnoses / Procedures Referred By Contact Refer red To Contact Diagnoses Abnormal CT scan, chest Breast nodule Aydee Burton APRN Procedures MA Diagnostic with Implants Bilateral w/Matias RUG DRYING MACHINE OPERATOR [facility] [place] [address] Referral ID Status Reason Start Date Expiration Date Visits V isits Requested Authorized [id number] Pending 03/08/2022 03/08/2023 1 1 Review Encounter Details Date Type Department Care Team Description 03/10/2022 Hospital Encounter [facility] Aydee Burton rmbianca CT scan, chest; [facility] ELADIO Mendez Breast n [facility] RUG DRYING MACHINE OPERATOR [address] [place] [address], [address] [place] [address] [phone] Social History Tobacco Use Types Packs/Day Years [...] How often do you attend hoahaoism or adventism services? 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 TARA Spivey [facility] Result Encounter Note - Aydee Burton APRN CNP - 03/10/2022 6:03 PM CDT Needs biopsy. Will discuss in clinic tomorrow. TARA Spivey documented in this encounter Plan of Treatment Upcoming Encounters Date Type Specialty Care Team Description 10/21/2022 Office Visit Pulmonology Obdulio Barrera MD [address] [place] [phone] (Wo rk) 10/25/2022 PRE VISIT ENT Charo Burton MD Previsit [address] [place] [address] [phone] (Wo rk) 10/25/2022 Office Visit Charo Carter MD [address] [place] [address] [phone] (Wo rk) 10/25/2022 Office Visit ENT Provider, Ent Dysphonia International Flight Attendant 10/25/2022 Virtual Visit Pain & Palliative Care [place] [address] [place], [place] [address] 10/28/2022 Appointment Speech Therapy Anabel Chew, DRIVER LICENSE TECHNICIAN [address] 875415 (Wo rk) 11/17/2022 Appointment Speech Therapy Anabel Chew, DRIVER LICENSE TECHNICIAN [address] [phone] (Wo rk) 12/01/2022 Office Visit Pain & [place] [address] [place], [place] [address] (Wo rk) 12/23/2022 Office Visit Neurology Colby Yeung MD [address] [place], [place] [address] (Wo rk) documented as of this encounter [...] the mammographic and CT findings. Aydee Burton APRN, CNP IM MAMMOGRAPHY ORDERABL ES documented in this encounter [...] documented as of this encounter Care Teams Personal Care Service Provider Relationship Specialty Start Date End Date Aydee Burton, PCP - General Nurse Practitioner - 05/17/21 ELADIO KOO [facility] [address] [place], [place] [address] Aydee Burton, Assigned PCP 04/28/21 ELADIO KOO [address] [place], [place] 8523[address] Louisa Hood, Assigned Neuroscience 07/11/21 RESIDENTIAL SUPERVISOR RUG DRYING MACHINE OPERATOR Provider 500 [place], [place] 6506[address] Se Levy, Lead Linux Programmer 08/05/21 05/12/22 Clari Francois Pharmacist Pharmacist 08/06/21 06/07/22 [facility] [address] [place], [place] [phone] [place], Assigned Sleep 08/01/21 Angel Turcios, Provider [address] [place] [address] Lesly Celaya MD Assigned Surgical 09/05/21 [address] [facility] [place], [place] [phone] [facility] 09/30/21 Worker Ramses Mcpherson Assigned OBGYN 11/07/21 MD Onesimo Provider [address] [place] [address] Obdulio Barrera MD Critical Care 01/24/[address] [place] [address] Obdulio Barrera, Assigned Pulmonology 02/06/[address] [address] Lesvia Stanley EP Cardiac Rehabilitation 03/03/22 03/03/23 [facility] Therapist [address] [place] [address] [phone] Marilia Deluna, PhD Assigned Behavioral 02/20/22 [address] [facility] Health Provider [place], [place] 64[address] Niyah Decker, [facility] Pharmacist Pharmacist 03/07/22 [address] [facility] [address] [place], [place] [phone] Clari Poole, Pharmacist Pharmacist 03/07/22 06/15/22 [facility] [address] [facility] [place] [address] Mago Swift, [facility] Lead Linux Programmer Cupola Patcher Helper - 08/05/21 Clinical documented as of this encounter
--- OUTSIDE RECORDS SUMMARY | 2022-10-21 08:56 | XMS_ITS | Encounter Summary ---
:1980 Author Organization [place] Address [address] [place] [address] Care Team Providers Name Role Phone Aydee Burton WALKING DRAGLINE OPERATOR BROADCAST ENGINEER Primary Care Provider Aydee Burton WALKING DRAGLINE OPERATOR BROADCAST ENGINEER Unavailable [phone] Louisa Hood WALKING DRAGLINE OPERATOR BROADCAST ENGINEER Unavailable [phone] Se Levy [facility] Unavailable Unavailable Clari Ruiz [facility] Unavailable [phone] Angel Hannah MD Unavailable Lesly Celaya MD Unavailable Tawana Patel MA Unavailable Unavailable Ramses Mcpherson MD Unavailable [phone] Obdulio Barrera MD Unavailable [phone] Obdulio Barrera MD Unavailable [phone] Lesvia Stanley Unavailable Marilia Deluna PhD Unavailable Niyah Decker [facility] Unavailable Clari Poole [facility] Unavailable JamisonMago Terri [facility] Unavailable Reason for Visit Reason Comments Musculoskeletal Problem Encounter Details Date Type Department Care Team Description 03/11/2022 Office Visit [facility] Burton Aydee Christina (Melody galdamez Dx); Clinic [place] ELADIO Mendez BROADCAST ENGINEER Anxiety; [address] [place] [address] [place] [place] [place], [place] [address] [phone] Social History Tobacco Use Types Packs/Day Years [...] How often do you attend scientologist or sabianism services? 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 Trigeminal Neuralgia (Czech)Rib Contusion or Minor Fracture (Czech) documented in this encounter Progress Notes Aydee [...] 03/25/2022) for genesight testing needed with Lory Nunez-Tim ; follow up with virtual MondayMarch 18. . Aydee Burton APRN CNP [facility] Marta is a 42 [...] Therapies tried and outcome: None Works at [employer]. Seen at [facility]. Ribs fractured on recent imaging from coughing. 03/15/22 will have Right Breast biopsy based on CT results. Wants to Quit job. Job cant help her do light duty. Seeing pulmonology. Asthma but PFTS normal. Air trapping on imaging. She is sleep eating has been referred to [facility]; they recommend GENSIGHT she needs this with [...] Office Visit Pulmonology Obdulio Barrera MD [address] [place] [address] [phone] (Wo rk) 10/25/2022 PRE VISIT Charo Carter MD Previsit 9 [place], [place] 504645 (Wo rk) 10/25/2022 Office Visit Charo Carter MD [address] [place] [address] [phone] (Wo rk) 10/25/2022 Office Visit ENT Provider, Ent Dysphonia Airconditioning Engineer 10/25/2022 Virtual Visit Pain & Palliative Care Marilia Deluna, PhD [address] [place], [place] [address] 10/28/2022 Appointment Speech Therapy Anabel Chew, CELINE [address] [phone] (Wo rk) 11/17/2022 Appointment Speech Therapy Anabel Chew SLP [address] 580595 (Wo rk) 12/01/2022 Office Visit Pain & [place] [address] [place], [place] [address] (Wo rk) 12/23/2022 Office Visit Neurology Colby Yeung MD [address] [facility] 06[address]95 (Wo rk) documented as of this encounter Visit Diagnoses Diagnosis Cough - Primary Anxiety Anxiety state, unspecified Polypharmacy Issue of repeat prescriptions documented in this encounter Additional Health Concerns Assessment Noted Time PHQ-9 Depression Total Score: 20 03/02/2022 7:02 AM CD T documented as of this encounter Care Teams Cement Mixer Driver Relationship Specialty Start Date End Date Aydee Burton, PCP - General Nurse Practitioner - 05/17/21 WALKING DRAGLINE OPERATOR BROADCAST ENGINEER Family [address] [place] [address] Aydee Burton, Assigned PCP 04/28/21 WALKING DRAGLINE OPERATOR BROADCAST ENGINEER [address] [place] [address] Louisa Hood, Assigned Neuroscience 07/11/21 WALKING DRAGLINE OPERATOR BROADCAST ENGINEER Provider [address] [place] [address] Se Levy, Lead Fiscal Clerk 08/05/21 05/12/22 Clari Francois Pharmacist Pharmacist 08/06/21 06/07/22 Jocelyn [facility] [address] [place] [address] [place], Assigned Sleep 08/01/21 Angel Turcios, Provider [address] [place] [address] Lesly Celaya MD Assigned Surgical 09/05/21 [address] [facility] [place] [place] [address] Tawana Patel MA [facility] 09/30/21 Worker Ramses Mcpherson Assigned OBGYN 11/07/21 MD Onesimo Provider [address] [place], [place] [address] Obdulio Barrera MD Critical Care 01/24/22 420 [facility] 276 [place], [place] [address] Obdulio Barrera, Assigned Pulmonology 02/06/22 MD Provider 420 [facility] 276 [place], [place] [address] Lesvia Stanley, GHADA Cardiac Rehabilitation 03/03/22 03/03/23 [facility] H[facility] Therapist [address] [place] [place] [address] Marilia Deluna, PhD Assigned Behavioral 02/20/22 [address] [facility] [place] [address] Niyah Decker, [facility] Pharmacist Pharmacist 03/07/22 420 [facility] 812 [place], [place] [address] Clari Poole, Pharmacist Pharmacist 03/07/22 06/15/22 [facility] [address] [address] Mago Swift, [facility] Lead Fiscal Clerk Teaching Manager - 08/05/21 Clinical documented as of this encounter
--- OUTSIDE RECORDS SUMMARY | 2022-10-21 08:56 | XMS_ITS | Encounter Summary ---
:1980 Author Organization [place] Address [address] [place] [address] Care Team Providers Name Role Phone Aydee Burton RESIDENTIAL MENTAL HEALTH WORKER SENIOR WEALTH ADVISOR Primary Care Provider [phone] Aydee Burton RESIDENTIAL MENTAL HEALTH WORKER SENIOR WEALTH ADVISOR Unavailable [phone] Louisa Hood RESIDENTIAL MENTAL HEALTH WORKER SENIOR WEALTH ADVISOR Unavailable [phone] Se Levy [facility] Unavailable Unavailable Clari Ruiz [facility] Unavailable [phone] Angel Hannah MD Unavailable Lesly Celaya MD Unavailable Tawana Patel MA Unavailable Unavailable Ramses Mcpherson MD Unavailable [phone] Obdulio Barrera MD Unavailable [phone] Obdulio Barrera MD Unavailable Lesvia Stanley Unavailable Marilia Deluna PhD Unavailable Niyah Decker [facility] Unavailable Clari Poole [facility] Unavailable Mago Swift [facility] Unavailable Reason for Referral Diagnostic Imaging Ultrasound (Routine) - Pending Review Specialty Diagnoses / Procedures Referred By Contact Refer red To Contact Diagnoses Abnormal CT scan, chest Breast nodule Aydee Burton APRN Procedures US Breast Right Limited 1-3 Quadrants SENIOR WEALTH ADVISOR [address] [place] [address] Referral ID Status Reason Start Date Expiration Date Visits V isits Requested Authorized [id number] Pending 03/08/2022 03/08/2023 1 1 Review Reason for Visit Diagnostic Imaging Ultrasound (Routine) - Pending Review Specialty Diagnoses / Procedures Referred By Contact Refer red To Contact Diagnoses Abnormal CT scan, chest Breast nodule Aydee Burton APRN Procedures US Breast Right Limited 1-3 Quadrants SENIOR WEALTH ADVISOR [address] [place] [address] Referral ID Status Reason Start Date Expiration Date Visits V isits Requested Authorized [id number] Pending 03/08/2022 03/08/2023 1 1 Review Encounter Details Date Type Department Care Team Description 03/10/2022 Hospital Encounter [facility] Aydee Burton rmbianca CT scan, chest; [facility] ELADIO Mendez Breast n [facility] SENIOR WEALTH ADVISOR [address], [address] [place] [address] [phone] Social History Tobacco Use Types Packs/Day Years [...] How often do you attend episcopalian or alevism services? 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/2021 7:53 PM BOX ESTIMATOR COVID-19 Exposure Response Date Recorded In [...] MG CHEW chewable daily tablet fluticasone (FLONASE) [place] 2 sprays into 18.2 mL 0 03/0804/05/2022 [...] Will discuss in clinic tomorrow. TARA Spivey [facility] documented in this encounter Plan of Treatment Upcoming Encounters Date Type Specialty Care Team Description 10/21/2022 Office Visit Pulmonology Obdulio Barrera MD [address] [place] [address] [phone] (Wo rk) 10/25/2022 PRE VISIT Charo Carter MD Previsit [address] [place] [address] (Wo rk) 10/25/2022 Office Visit Charo Carter MD [address] [place] [address] [phone] (Estefanía rk) 10/25/2022 Office Visit ENT Provider, Ent Dysphonia Peripatologist 10/25/2022 Virtual Visit Pain & Palliative Care [place] [address] [place], [place] [address] 10/28/2022 Appointment Speech Therapy Anabel Chew, BRICK TENDER [address] [phone] (Wo rk) 11/17/2022 Appointment Speech Therapy Anabel Chew, BRICK TENDER [address] 822165 (Wo rk) 12/01/2022 Office Visit Pain & [place] [address] [place], [place] [address] (Wo rk) 12/23/2022 Office Visit Neurology Colby Yeung MD [address] [place], [place] [address] (Wo rk) documented as of this encounter Procedures Procedure Name Priority Date/Time Associated Diagnosis Comme nts US BREAST RIGHT Routine 03/10/2022 3:38 PM [...] the mammographic and CT findings. Aydee Burton RESIDENTIAL MENTAL HEALTH WORKER SENIOR WEALTH ADVISOR IMG US ORDERABLES documented in this encounter [...] documented as of this encounter Care Teams Librarian Assistant Relationship Specialty Start Date End Date Aydee Burton, PCP - General Nurse Practitioner - 05/17/21 RESIDENTIAL MENTAL HEALTH WORKER SENIOR WEALTH ADVISOR Family [address] [place], [place] [address] Aydee Burton, Assigned PCP 04/28/21 RESIDENTIAL MENTAL HEALTH WORKER SENIOR WEALTH ADVISOR [address] [place], [place] 2[address] Louisa Hood, Assigned Neuroscience 07/11/21 RESIDENTIAL MENTAL HEALTH WORKER SENIOR WEALTH ADVISOR Provider 500 [place] [address] Se Levy, Lead Inspector And Hand Packager 08/05/21 05/12/22 RUSTIC FENCE BUILDER Clari Ruiz Pharmacist Pharmacist 08/06/21 06/07/22 Jocelyn [facility] [address] [place] [address] [place], Assigned Sleep 08/01/21 Angel Turcios, Provider [address] [place] [address] Lesly Celaya MD Assigned Surgical 09/05/21 [address] [facility] Provider [place], [place] [phone] Tawana Patel MA [facility] 09/30/21 Worker Ramses Mcpherson Assigned OBGYN 11/07/21 MD Onesimo Provider [address] [place] [address] Obdulio Barrera MD Critical Care 01/24/[address] [place] [address] 276 [place], [place] [address] Obdulio Barrera, Assigned Pulmonology 02/06/22 MD Provider [address] [place] [address] 276 [place] [address] Lesvia Stanley, GHADA Cardiac Rehabilitation 03/03/22 03/03/23 [facility] Therapist [address] [facility] [facility] [address] [place], [place] [address] Marilia Deluna, PhD Assigned Behavioral 02/20/22 [address] [facility] [place] [address] Niyah Decker, [facility] Pharmacist Pharmacist 03/07/22 420 [facility] 812 [place], [place] [phone] Clari Poole, Pharmacist Pharmacist 03/07/22 06/15/22 [facility] [address] [facility] [address] [place], [place] [address] [facility] Lead Inspector And Hand Packager Onsite Case Manager - 08/05/21 Clinical documented as of this encounter
--- OUTSIDE RECORDS SUMMARY | 2022-10-21 08:56 | XMS_ITS | Encounter Summary ---
:1980 Author Organization [place] Address [address] [place] [address] Care Team Providers Name Role Phone Aydee Burton AGRICULTURAL ENGINEERING TECHNICIANS BRAKE LINING FINISHER ASBESTOS Primary Care Provider [phone] Aydee Burton AGRICULTURAL ENGINEERING TECHNICIANS BRAKE LINING FINISHER ASBESTOS Unavailable [phone] Louisa Hood AGRICULTURAL ENGINEERING TECHNICIANS BRAKE LINING FINISHER ASBESTOS Unavailable [phone] Se Levy [facility] Unavailable Unavailable Clari Ruiz [facility] Unavailable [phone] Angel Hannah MD Unavailable Lesly Celaya MD Unavailable Tawana Patel MA Unavailable Unavailable Ramses Mcpherson MD Unavailable [phone] Obdulio Barrera MD Unavailable [phone] Obdulio Barrera MD Unavailable Lesvia Stanley Unavailable Marilia Deluna PhD Unavailable Niyah Decker [facility] Unavailable Clari Poole [facility] Unavailable Jamison Mago M [facility] Unavailable Reason for Visit Reason Comments Follow Up Encounter Details Date Type Department Care Team Description [facility] MD Leo asthma without [place] [address] complication (Primary [address] [facility] [address]) [address] [place], [place] [address] [phone] Social History Tobacco Use Types Packs/Day Years [...] How often do you attend islam or nondenominational services? Never 08/05/2021 Do you [...] at Date Recorded Female 11/09/2021 7:53 PM DISTILLERY WORKER COVID-19 Exposure Response Date Recorded In [...] GENITOURINARY SURGERY Tubal ligation and ablasion ??? WAITER/WAITRESS CABIN CLASS SURGERY not sure tubal ligation and ablasion [...] with Friends and Family: Never ??? Attends Christianity Services: Never ??? Active Member of Clubs [...] Barrera MD Pulmonary and Critical Care Medicine [facility] documented in this encounter Nursing Notes Crista [...] 10/21/2022 Office Visit Pulmonology Obdulio Barrera MD [address] [place] [address] [phone] (Wo rk) 10/25/2022 PRE VISIT ENT Charo Burton MD Previsit [address] [place] [address] [phone] (Wo rk) 10/25/2022 Office Visit ENT Charo Burton MD [address] [place] [address] [phone] (Wo rk) 10/25/2022 Office Visit ENT Provider, Ent Dysphonia Survey Coordinator 10/25/2022 Virtual Visit Pain & Palliative Care Marilia Deluna, PhD [address] [place], [place] [address] 10/28/2022 Appointment Speech Therapy Anabel Chew, CONSTRUCTION SCHEDULER [address] [phone] (Wo rk) 11/17/2022 Appointment Speech Therapy Anabel Chew, CONSTRUCTION SCHEDULER [address] [phone] (Wo rk) 12/01/2022 Office Visit Pain & [place] [address] [place], [place] [address] (Wo rk) 12/23/2022 Office Visit Neurology Colby Yeung MD [address] [place] [address] 965395 (Wo rk) documented as of this encounter Visit Diagnoses Diagnosis Moderate persistent asthma without compl ication - Primary Unspecified asthma documented in this encounter Additional Health Concerns Assessment Noted Time PHQ-9 Depression Total Score: 20 03/02/2022 7:02 AM CD T documented as of this encounter Care Teams Circuits Engineer Relationship Specialty Start Date End Date Aydee Burton, PCP - General Nurse Practitioner - 05/17/21 AGRICULTURAL ENGINEERING TECHNICIANS BRAKE LINING FINISHER ASBESTOS Family [address] [place], [place] [phone] Aydee Burton, Assigned PCP 04/28/21 AGRICULTURAL ENGINEERING TECHNICIANS BRAKE LINING FINISHER ASBESTOS [address] [place], [place] [phone] Louisa Hood, Assigned Neuroscience 07/11/21 AGRICULTURAL ENGINEERING TECHNICIANS BRAKE LINING FINISHER ASBESTOS Provider 500 [place], [place] [address] Se Levy, Lead Sander Hand 08/05/21 05/12/22 Clari Francois Pharmacist Pharmacist 08/06/21 06/07/22 [facility] [address] [place], [place] [address] [place], Tone Sleep 08/01/21 Angel Turcios, Provider [address] [place], [place] [address] Lesly Celaya MD Assigned Surgical 09/05/21 [address] Provider [place], [place] [phone] Tawana Patel MA [facility] 09/30/21 Worker Ramses Mcpherson Assigned OBGYN 11/07/21 MD Onesimo Provider [address] [place], [place] [phone] Obdulio Barrera MD Critical Care 01/24/22 420 [facility] 276 [place], [place] [phone] Obdulio Barrera, Assigned Pulmonology 02/06/22 MD Provider 420 [facility] 276 [place], [place] [address] Lesvia Stanley, GHADA Cardiac Rehabilitation 03/03/22 03/03/23 [facility] Therapist [address] [place] [place] [address] Marilia Deluna, PhD Assigned Behavioral 02/20/22 [address] [facility] [place] [place] [address] Niyah Decker, [facility] Pharmacist Pharmacist 03/07/22 420 [facility] 812 [place] [address] Clari Poole, Pharmacist Pharmacist 03/07/22 06/15/22 [facility] [address] [place] [address] [place] [address] Mago Swift, [facility] Lead Sander Hand Mechanical Engineering Teacher - 08/05/21 Clinical documented as of this encounter
--- OUTSIDE RECORDS SUMMARY | 2022-10-21 08:56 | XMS_ITS | Encounter Summary ---
:1980 Author Organization [place] Address [address] [place] [place] [address] Care Team Providers Name Role Phone Ayede Burton CONVEYOR INSTALLER WALL ATTENDANT Primary Care Provider Aydee Burton CONVEYOR INSTALLER WALL ATTENDANT Unavailable [phone] Louisa Hood CONVEYOR INSTALLER WALL ATTENDANT Unavailable [phone] Se Levy [facility] Unavailable Unavailable Clari Ruiz [facility] Unavailable [phone] Angel Hannah MD Unavailable Lesly Celaya MD Unavailable Tawana Patel MA Unavailable Unavailable Ramses Mcpherson MD Unavailable [phone] Obdulio Barrera MD Unavailable [phone] Obdulio Barrera MD Unavailable [phone] Lesvia Stanley Unavailable Marilia Deluna PhD Unavailable Niyah Decker [facility] Unavailable Clari Poole [facility] Unavailable Mago Swift [facility] Unavailable Reason for Referral Diagnostic Imaging Ultrasound (Routine) - Pending Review Specialty Diagnoses / Procedures Referred By Contact Refer red To Contact Diagnoses Abnormal CT scan, chest Breast nodule Aydee Burton APRN Procedures US Breast Biopsy Core Needle Right WALL ATTENDANT [address] [place] [address] Referral ID Status Reason Start Date Expiration Date Visits V isits Requested Authorized [id number] Pending 03/10/2022 03/10/2023 1 1 Review Reason for Visit Diagnostic Imaging Ultrasound (Routine) - Pending Review Specialty Diagnoses / Procedures Referred By Contact Refer red To Contact Diagnoses Abnormal CT scan, chest Breast nodule Aydee Burton APRN Procedures US Breast Biopsy Core Needle Right WALL ATTENDANT [address] [place] [address] Referral ID Status Reason Start Date Expiration Date Visits V isits Requested Authorized [id number] Pending 03/10/2022 03/10/2023 1 1 Review Encounter Details Date Type Department Care Team Description 03/15/2022 Hospital Encounter [facility] Aydee Burton rmbianca CT scan, chest; [facility] ELADIO Mendez [facility] WALL ATTENDANT [address], [address] [place] [address] [phone] Social History Tobacco Use Types Packs/Day Years [...] How often do you attend holiness or rastafari services? Never 08/05/2021 Do you [...] at Date Recorded Female 11/09/2021 7:53 PM BURNER SHAFT COVID-19 Exposure Response Date Recorded In the [...] your health care provider. Copyright ?? 2009 [employer]. All rights reserved. Clinically reviewed by Lesly Bello RN, BSN, CN-BN. cocone [id number] - REV 11/01. documented in this encounter [...] persistent cough asthma without complication fluticasone (FLONASE) Deweese 2 sprays into 18.2 mL 0 03/0804/05/2022 [...] Result Encounter Note - Aydee Burton APRN WALL ATTENDANT - 03/15/2022 1:44 PM CDT IMPRESSION: Uncomplicated ultrasound guided core needle biopsy of the RIGHT breast. Results pending. TARA Spivey [facility] Result Encounter Note - Aydee Burton APRN CNP - 03/15/2022 8:00 AM CDT Dear Marta, Here is a summary of your recent test results: Good to see normal pathology on your breast. You certainly deserve some good news. Please call us at [phone] (or use Skills Matter) to address the above recommendations if needed. Thank you for choosing [facility]. It was an honor and a privilege to participate in your care. Healthy regards, TARA Spivey [facility] documented in this encounter Plan of Treatment Upcoming Encounters Date Type Specialty Care Team Description 10/21/2022 Office Visit Pulmonology Obdulio Barrera MD 420 [facility] 276 [place], [place] [address] (Wo rk) 10/25/2022 PRE VISIT ENT Charo Burton MD Previsit [address] [place] [address] [phone] (Wo rk) 10/25/2022 Office Visit Charo Caretr MD [address] [place] [phone] (Wo rk) 10/25/2022 Office Visit ENT Provider, Jeannette Ent Dysphonia Chemical Equipment Controller 10/25/2022 Virtual Visit Pain & Palliative Care [place] [address] [place], [place] [address] 10/28/2022 Appointment Speech Therapy Anabel Chew, VP OF PRODUCT [facility] [address] [facility] 396 [place] [address] (Wo rk) 11/17/2022 Appointment Speech Therapy Anabel Chew, VP OF PRODUCT [facility] 516 [facility] 396 [place], [place] [address] (Wo rk) 12/01/2022 Office Visit Pain & [place] [address] [place], [place] [address] (Wo rk) 12/23/2022 Office Visit Neurology Colby Yeung MD [address] [place], [place] [address] (Wo rk) documented as of this encounter [...] mammogram demonstrates clip deployment. Aydee Burton APRN WALL ATTENDANT [facility] ORDERABLES Surgical Pathology Exam (03/15/2022 8:22 AM CDT) Component Value Ref Test Analysis Performed At [facility] gist Range Method Time Signature Case Report Surgical Pathology Report ? Case: [id number] ? 03/16/2022 Authorizing Provider: ??Erick varma, Aydee Mendez, ? Collected: ? 03/15/2022 08:22 AM ? 2:38 PM LABORATOR Y ? ELADIO WALL ATTENDANT ? CDT Ordering Location: ? [facility] [place] ?Received: ?03/15/2022 10:50 AM ? [facility] ? Pathologist: ? Alea Chong MD ? [...] CDT Time collected: 821 Time in formalin: 08 Microscopic Microscopic examination is performed. 03/16/2022 Description 2:38 PM LABORATORY CDT Performing The technical 03/16/2022 Labs component of this 2:38 PM LABORATORY testing was CDT completed at [facility] Laboratory Case Images 03/16/2022 2:38 PM LABORATORY CDT Specimen Anatomical Collection Method Collection Time Receive d Time (Source) Location / / Volume Laterality Biopsy RIGHT BREAST 03/15/2022 8:22 AM STRUCTURE / CDT 10:50 AM CDT Unknown Comment: Right breast ultrasound core bi opsy, 1:00, 6.0 cm from nipple, 1.1 cm size. Low suspicion. Possible fibroadenoma or hamartoma Performed by Dr. Jerel Dan. Aydee Burton APRN WALL ATTENDANT LAB - [facility] Performing Organization Address City/State/ZIP Code [place] [address] [phone] Care Lab [address] 1st floor, Room 20B documented in this encounter Visit Diagnoses Diagnosis Abnormal CT scan, chest Nonspecific (abnormal) findings on radio logical and other examination of other intrathoracic organs Breast nodule Other (abnormal) findings on radiologica l examination of breast documented in this encounter Administered Medications Inactive [...] documented as of this encounter Care Teams Time Clock Mechanic Relationship Specialty Start Date End Date Aydee Burton, PCP - General Nurse Practitioner - 05/17/21 CONVEYOR INSTALLER WALL ATTENDANT Family [address] [place], [place] [phone] Aydee Burton, Assigned PCP 04/28/21 CONVEYOR INSTALLER WALL ATTENDANT [address] [place], [place] [address] Louisa Hood, Assigned Neuroscience 07/11/21 CONVEYOR INSTALLER WALL ATTENDANT Provider [address] [place], [place] 46[address] Se Levy, Lead Chassis Mechanic 08/05/21 05/12/22 Clari Francois Pharmacist Pharmacist 08/06/21 06/07/22 Jocelyn [facility] [address] [place] [address] [place], Assigned Sleep 08/01/21 Angel Turcios, Provider [address] [place] [address] Lesly Celaya MD Assigned Surgical 09/05/21 [address] [facility] [place] [address] Tawana Patel [facility] 09/30/21 Worker Ramses Mcpherson Assigned OBGYN 11/07/21 MD Onesimo Provider [address] [place] [address] Obdulio Barrera MD Critical Care 01/24/[address] [place] [address] [phone] Obdulio Barrera, Assigned Pulmonology 02/06/[address] [place] [address] 142625 Lesvia Stanley EP Cardiac Rehabilitation 03/03/22 03/03/23 [facility] Therapist [address] [address] Marilia Deluna, PhD Assigned Behavioral 02/20/22 [address] [facility] Provider [place], [place] [phone] Niyah Decker, [facility] Pharmacist Pharmacist 03/07/22 420 [facility] 812 [place], [place] [address] Clari Poole, Pharmacist Pharmacist 03/07/22 06/15/22 [facility] [address] [facility] [place] [address] Mago Swift, [facility] Lead Chassis Mechanic Spotter - 08/05/21 Clinical documented as of this encounter
--- OUTSIDE RECORDS SUMMARY | 2022-10-21 08:56 | XMS_ITS | Encounter Summary ---
:1980 Author Organization [place] Address [address] [place] [address] Care Team Providers Name Role Phone Aydee Burton FOREIGN LANGUAGE PROFESSOR RESIDENT CARE SPEC Primary Care Provider Aydee Burton FOREIGN LANGUAGE PROFESSOR RESIDENT CARE SPEC Unavailable [phone] Louisa Hood FOREIGN LANGUAGE PROFESSOR RESIDENT CARE SPEC Unavailable [phone] Se Levy [facility] Unavailable Unavailable Clari Ruiz [facility] Unavailable [phone] Angel Hannah MD Unavailable Lesly Celaya MD Unavailable Tawana Patel MA Unavailable Unavailable Ramses Mcpherson MD Unavailable [phone] Obdulio Barrera MD Unavailable [phone] Obdulio Barrera MD Unavailable [phone] Lesvia Stanley Unavailable Marilia Deluna PhD Unavailable Niyah Decker [facility] Unavailable Clari Poole [facility] Unavailable Mago Swift [facility] Unavailable Reason for Referral Diagnostic Imaging Ultrasound (Routine) - Pending Review Specialty Diagnoses / Procedures Referred By Contact Refer red To Contact Diagnoses Leg swelling Nelson Mcintyre Procedures US Lower Extremity Venous Duplex Bilateral MD Tima [address] [place] [address] Referral ID Status Reason Start Date Expiration Date Visits V isits Requested Authorized [id number] Pending 03/08/2022 03/08/2023 1 1 Review Reason for Visit Diagnostic Imaging Ultrasound (Routine) - Pending Review Specialty Diagnoses / Procedures Referred By Contact Refer red To Contact Diagnoses Leg swelling Nelson Mcintyre Procedures US Lower Extremity Venous Duplex Bilateral MD Tima [address] [place] [address] Referral ID Status Reason Start Date Expiration Date Visits V isits Requested Authorized [id number] Pending 03/08/2022 03/08/2023 1 1 Review Encounter Details Date Type Department Care Team Description 03/08/2022 Hospital Encounter [facility] Francisco JavierNelson Leg swelling [facility] Iftikhar Alfred MD [address] [facility] [address] [facility] 150 [address] [place] [address] [phone] (Wo rk) Social History Tobacco Use Types [...] often do you attend latter day or taoist services? Never 08/05/2021 Do you [...] at Date Recorded Female 11/09/2021 7:53 PM PERSONNEL REPRESENTATIVE COVID-19 Exposure Response Date Recorded In [...] MG CHEW chewable daily tablet fluticasone (FLONASE) Silex 2 sprays into 18.2 mL 0 03/0804/05/2022 [...] Barrera MD 420 [facility] 276 [place], [place] [address] (Wo rk) 10/25/2022 PRE VISIT ENT Charo Burton MD Previsit [address] [place] [phone] (Wo rk) 10/25/2022 Office Visit Charo Carter MD [address] [place] [address] [phone] (Wo rk) 10/25/2022 Office Visit ENT Provider, Ent Dysphonia Manager Strategic [employer]iances 10/25/2022 Virtual Visit Pain & Palliative Care [place] [address] [place], [place] [address] 10/28/2022 Appointment Speech Therapy Anabel Chew, [facility] 516 [facility] 396 [place], [place] [address] (Wo rk) 11/17/2022 Appointment Speech Therapy Anabel Chew, BUS COMPANY MANAGER [place] [phone] [facility] 396 [place], [place] [address] (Wo rk) 12/01/2022 Office Visit Pain & [place] [address] [place], [place] [address] (Wo rk) 12/23/2022 Office Visit Neurology Colby Yeung MD [address] [place] [address] (Wo rk) documented as of this encounter [...] US LOWER EXTREMITY VENOUS DUPLEX BILATERAL LOCATION: [facility] DATE/TIME: 03/08/2022 4:22 PM INDICATION: b [...] LOWER EXTREMITY VENOUS DUPLEX B ILATERAL LOCATION: [facility] DATE/TIME: 03/08/2022 4:22 PM INDICATION: b [...] Diagnoses Diagnosis Leg swelling Swelling of limb documented in this encounter Additional Health Concerns Infection Onset Date Last Indicated Resolved Time Rule Out COVID-19 03/08/2022 03/08/2022 03/08/2022 4:1 9 PM CDT Rule Out Pertussis 03/08/2022 03/08/2022 03/09/2022 9: 56 AM CDT Assessment Noted Time PHQ-9 Depression Total Score: 20 03/02/2022 7:02 AM CD T documented as of this encounter Care Teams Candy Packer Relationship Specialty Start Date End Date Aydee Burton, PCP - General Nurse Practitioner - 05/17/21 FOREIGN LANGUAGE PROFESSOR RESIDENT CARE SPEC Family [address] [place] [phone] Aydee Burton, Assigned PCP 04/28/21 FOREIGN LANGUAGE PROFESSOR RESIDENT CARE SPEC [address] [place] [address] [phone] Louisa Hood, Assigned Neuroscience 07/11/21 FOREIGN LANGUAGE PROFESSOR RESIDENT CARE SPEC Provider [address] [place] [address] Se Levy, Lead Circular Knife Machine Cutter 08/05/21 05/12/22 [facility] Clari Ruiz Pharmacist Pharmacist 08/06/21 06/07/22 Jocelyn [facility] [address] [place] [address] [place], Assigned Sleep 08/01/21 Angel Turcios, Provider [address] [place] [address] Lesly Celaya MD Assigned Surgical 09/05/21 [address] [place] [address] Tawana Patel [facility] 09/30/21 Worker Ramses Mcpherson Assigned OBGYN 11/07/21 MD Onesimo Provider [address] [place] [address] Obdulio Barrera MD Critical Care 01/24/[address] [place] [address] 276 [place] [address] Obdulio Barrera, Tone Pulmonology 02/06/22 MD Provider [address] [place] [address] 276 [place] [address] Lesvia Stanley EP Cardiac Rehabilitation 03/03/22 03/03/23 [facility] Therapist [address] [place] [address] Marilia Deluna, PhD Assigned Behavioral 02/20/22 [address] [facility] Provider [place], [place] [phone] Niyah Decker, [facility] Pharmacist Pharmacist 03/07/22 420 [facility] 812 [place] [address] Clari Poole, Pharmacist Pharmacist 03/07/22 06/15/22 [facility] [address] [facility] [address] [place], [place] [address] Mago Swift, [facility] Lead Circular Knife Machine Cutter Milker Machine - 08/05/21 Clinical documented as of this encounter
--- OUTSIDE RECORDS SUMMARY | 2022-10-21 08:56 | XMS_ITS | Encounter Summary ---
:1980 Author Organization [place] Address [address] [place] [address] Care Team Providers Name Role Phone Aydee Burton LEASE BUYER HAND ICER Primary Care Provider [phone] Aydee Burton LEASE BUYER HAND ICER Unavailable [phone] Louisa Hood LEASE BUYER HAND ICER Unavailable [phone] Se Levy [facility] Unavailable Unavailable Clari Ruiz [facility] Unavailable [phone] Angel Hannah MD Unavailable Lesly Celaya MD Unavailable Tawana Patel MA Unavailable Unavailable Ramses Mcpherson MD Unavailable [phone] Obdulio Barrera MD Unavailable [phone] Obdulio Barrera MD Unavailable [phone] Lesvia Stanley Unavailable Marilia Deluna PhD Unavailable Niyah Decker [facility] Unavailable Clari Poole [facility] Unavailable JamisonMago [facility] Unavailable Encounter Details Date [...] How often do you attend bahai or evangelical services? Never 08/05/2021 Do you [...] at Date Recorded Female 11/09/2021 7:53 PM FROG SHAKER COVID-19 Exposure Response Date Recorded In the [...] [facility] 276 [place], [place] [phone] (Wo rk) 10/25/2022 PRE VISIT ENT Charo Burton MD Previsit [address] [place] [address] [phone] (Wo rk) 10/25/2022 Office Visit ENT Charo Burton MD [address] [place] [address] [phone] (Wo rk) 10/25/2022 Office Visit ENT Provider, Ent Dysphonia Crane Helper 10/25/2022 Virtual Visit Pain & Palliative Care [place]ilia Del[place] [address] [place], [place] [address] 10/28/2022 Appointment Speech Therapy Anabel Chew, WARD ATTENDANT [address] [place], [place] [address] (Wo rk) 11/17/2022 Appointment Speech Therapy Anabel Chew, WARD ATTENDANT [address] [place], [place] [phone] (Wo rk) 12/01/2022 Office Visit Pain & [place] [address] [place], [place] [address] (Wo rk) 12/23/2022 Office Visit Neurology Colby Yeung MD [address] [place] [address] (Wo rk) documented as of this encounter Visit Diagnoses Not on filedocumented in this encounter Additional Health Concerns Assessment Noted Time PHQ-9 Depression Total Score: 20 03/02/2022 7:02 AM CD T documented as of this encounter Care Teams Baling Press Operator Relationship Specialty Start Date End Date Aydee Burton, PCP - General Nurse Practitioner - 05/17/21 LEASE BUYER HAND ICER Family [address] [place], [place] [phone] Aydee Burton, Assigned PCP 04/28/21 LEASE BUYER HAND ICER [address] [place], [place] [phone] Louisa Hood, Assigned Neuroscience 07/11/21 LEASE BUYER HAND ICER Provider 500 [place], [place] [phone] Se Levy, Lead Neighborhood Conservation Officer 08/05/21 05/12/22 Clari Francois Pharmacist Pharmacist 08/06/21 06/07/22 [facility] [address] [place], [place] [phone] [place], Assigned Sleep 08/01/21 Angel Turcios, Provider [address] [place], [place] [address] Lesly Celaya MD Assigned Surgical 09/05/21 [address] Provider [place], [place] [phone] Tawana Patel MA [facility] 09/30/21 Worker Ramses Mcpherson Assigned OBGYN 11/07/21 MD Onesimo Provider [address] [place], [place] [phone] Obdulio Barrera MD Critical Care 01/24/[address] [place] [address] [phone] Obdulio Barrera, Assigned Pulmonology 02/06/22 MD Provider [address] [place] [address] [phone] Lesvia Stanley, GHADA Cardiac Rehabilitation 03/03/22 03/03/23 [facility] Therapist [address] [phone] Marilia Deluna, PhD Assigned Behavioral 02/20/22 [address] [facility] Health Provider [place], [place] [phone] Niyah Decker, [facility] Pharmacist Pharmacist 03/07/22 420 [facility] 812 [place], [place] [address] Clari Poole, Pharmacist Pharmacist 03/07/22 06/15/22 [facility] [address] [facility] [address] [place] [phone] Mago Swift, [facility] Lead Neighborhood Conservation Officer Gypsum Block Setter - 08/05/21 Clinical documented as of this encounter
--- OUTSIDE RECORDS SUMMARY | 2022-10-21 08:56 | XMS_ITS | Encounter Summary ---
:1980 Author Organization [place] Address [address] [place] [address] Care Team Providers Name Role Phone Aydee Burton FAMILY AND CONSUMER EDUCATION TEACHER MEDIA DIRECTOR Primary Care Provider Aydee Burton FAMILY AND CONSUMER EDUCATION TEACHER MEDIA DIRECTOR Unavailable [phone] Louisa Hood FAMILY AND CONSUMER EDUCATION TEACHER MEDIA DIRECTOR Unavailable [phone] Se Levy [facility] Unavailable Unavailable Clari Ruiz [facility] Unavailable [phone] Angel Hannah MD Unavailable Lesly Celaya MD Unavailable Tawana Patel MA Unavailable Unavailable Ramses Mcpherson MD Unavailable [phone] Obdulio Barrera MD Unavailable [phone] Obdulio Barrera MD Unavailable [phone] Lesvia Stanley Unavailable Marilia Deluna PhD Unavailable Niyah Decker [facility] Unavailable Clari Poole [facility] Unavailable JamisonMago [facility] Unavailable Encounter Details Date Type [...] How often do you attend amish or jehovah's witness services? Never 08/05/2021 Do [...] at Date Recorded Female 11/09/2021 7:53 PM NET MVC DEVELOPER COVID-19 Exposure Response Date Recorded In the last 10 days, have you been in contact with No / Unsu re 03/11/2022 2:13 PM CDT someone who was confirmed or suspected to have Coronavirus/COVID-19? documented as of this encounter Plan of Treatment Upcoming Encounters Date Type Specialty Care Team Description 10/21/2022 Office Visit Pulmonology Obdulio Barrera MD 420 [facility] 276 [place], [place] [address] (Wo rk) 10/25/2022 PRE VISIT ENT Charo Burton MD Previsit [address] [place] [address] [phone] (Wo rk) 10/25/2022 Office Visit ENT Charo Burton MD [address] [place] [address] [phone] (Wo rk) 10/25/2022 Office Visit ENT Provider, Ent Dysphonia Leather Staker 10/25/2022 Virtual Visit Pain & Palliative Care [place] [address] [place], [place] [address] 10/28/2022 Appointment Speech Therapy Aanbel Chew, SLAB INSTALLER [address] [place], [place] [address] (Wo rk) 11/17/2022 Appointment Speech Therapy Anabel Chew, SLAB INSTALLER [address] [place], [place] [phone] (Wo rk) 12/01/2022 Office Visit Pain & [place] [address] [place], [place] [address] (Wo rk) 12/23/2022 Office Visit Neurology Colby Yeung MD [address] [place] [address] (Wo rk) documented as of this encounter Visit Diagnoses Not on filedocumented in this encounter Additional Health Concerns Assessment Noted Time PHQ-9 Depression Total Score: 20 03/02/2022 7:02 AM CD T documented as of this encounter Care Teams Commercial Decorator Relationship Specialty Start Date End Date Aydee Burton, PCP - General Nurse Practitioner - 05/17/21 FAMILY AND CONSUMER EDUCATION TEACHER MEDIA DIRECTOR Family [address] [place], [place] [phone] Aydee Burton, Assigned PCP 04/28/21 FAMILY AND CONSUMER EDUCATION TEACHER MEDIA DIRECTOR [address] [place], [place] [phone] Louisa Hood, Assigned Neuroscience 07/11/21 FAMILY AND CONSUMER EDUCATION TEACHER MEDIA DIRECTOR Provider 500 [place], [place] [phone] Se Levy, Lead Director Of Career Resources 08/05/21 05/12/22 Clari Francois Pharmacist Pharmacist 08/06/21 06/07/22 [facility] [address] [place], [place] [phone] [place], Assigned Sleep 08/01/21 Angel Turcios, Provider [address] [place], [place] [address] Lesly Celaya MD Assigned Surgical 09/05/21 [address] Provider [place], [place] [phone] Tawana Patel MA [facility] 09/30/21 Worker Ramses Mcpherson Assigned OBGYN 11/07/21 MD Onesimo Provider [address] [place], [place] [phone] Obdulio Barrear MD Critical Care 01/24/[address] [place] [address] [phone] Obdulio Barrera, Assigned Pulmonology 02/06/22 MD Provider [address] [place] [address] [phone] Lesvia Stanley, GHADA Cardiac Rehabilitation 03/03/22 03/03/23 [facility] Therapist [address] [address] Marilia Deluna, PhD Assigned Behavioral 02/20/22 [address] [facility] Health Provider [place], [place] [phone] Niyah Decker, [facility] Pharmacist Pharmacist 03/07/22 420 [facility] 812 [place], [place] [phone] Clari Poole, Pharmacist Pharmacist 03/07/22 06/15/22 [facility] [address] [facility] [address] [place] [phone] Mago Swift, [facility] Lead Director Of Career Resources Mechanical Developer Prover - 08/05/21 Clinical documented as of this encounter
--- OUTSIDE RECORDS SUMMARY | 2022-10-21 08:56 | XMS_ITS | Encounter Summary ---
:1980 Author Organization [facility] Address [address] [place] [address] Care Team Providers Name Role Phone Aydee Burton ON SITE PROPERTY MANAGER SENIOR IT SPECIALIST Primary Care Provider Aydee Burton ON SITE PROPERTY MANAGER SENIOR IT SPECIALIST Unavailable [phone] Louisa Hood ON SITE PROPERTY MANAGER SENIOR IT SPECIALIST Unavailable [phone] Se Levy [facility] Unavailable Unavailable Clari Ruiz [facility] Unavailable [phone] Angel Hannah MD Unavailable Lesly Celaya MD Unavailable Tawana Patel MA Unavailable Unavailable Ramses Mcpherson MD Unavailable [phone] Kirk Barrera MD Unavailable [phone] Kirk Barrera MD Unavailable [phone] Lesvia Stanley Unavailable Marilia Deluna PhD Unavailable Niyah Decker [facility] Unavailable Clari Poole [facility] Unavailable Mago Swift [facility] Unavailable Reason for Referral Diagnostic Imaging CT Scan (Routine) - Closed Specialty Diagnoses / Procedures Referred By Contact Refer red To Contact Diagnoses SOB (shortness of breath) Nelson Mcintyre Procedures CT Chest Pulmonary Embolism w Jennifer Alfred MD [address] [place] [address] Referral ID Status Reason Start Date Expiration Date Visits Requ ested Visits Authorized [id number] Closed 03/08/2022 03/08/2023 1 1 Reason for Visit Diagnostic Imaging CT Scan (Routine) - Closed Specialty Diagnoses / Procedures Referred By Contact Refer red To Contact Diagnoses SOB (shortness of breath) Nelson Mcintyre Procedures CT Chest Pulmonary Embolism w Jennifer Alfred MD [address] [place] [address] Referral ID Status Reason Start Date Expiration Date Visits Requ ested Visits Authorized [id number] Closed 03/08/2022 03/08/2023 1 1 Encounter Details Date Type Department Care Team Description 03/08/2022 Hospital Encounter [facility] Nelson Mcintyre SOB (shortness of [place] [facility] vince Caballero) [address] MD [place], [place] [address] [address] [facility] [address] [place] [id number] Social History Tobacco Use Types Packs/Day Years [...] How often do you attend mosque or restorationist services? Never 08/05/2021 Do you [...] at Date Recorded Female 11/09/2021 7:53 PM GRANTS ADMINISTRATOR COVID-19 Exposure Response Date Recorded In [...] Care Team Description 10/21/2022 Office Visit Pulmonology Kirk Barrera MD 420 [facility] [address] [place], [place] [address] (Wo rk) 10/25/2022 PRE VISIT ENT Charo Burton MD Previsit [address] [place] [phone] (Wo rk) 10/25/2022 Office Visit ENT Charo Burton MD [address] [place] [phone] (Wo rk) 10/25/2022 Office Visit ENT Provider, Ent Dysphonia [facility] 10/25/2022 Virtual Visit Pain & Palliative [place] [address] [place], [place] [address] 10/28/2022 Appointment Speech Therapy Anabel Chew, CELINE [address] [phone] (Wo rk) 11/17/2022 Appointment Speech Therapy Anabel Chew SLP [address] [phone] (Wo rk) 12/01/2022 Office Visit Pain & [place] [address] [place], [place] [address] (Wo rk) 12/23/2022 Office Visit Neurology Colby Yeung MD [address] [address] (Wo rk) documented as of this encounter [...] 3D MIP reconstructions were performed by the invasive cardiovascular technologist. Dose reduction techniques were used. CONTRAST: [...] 3D MIP reconstructions were performed by the invasive cardiovascular technologist. Dose reduction techniques were used. CONTRAST: [...] Shortness of breath documented in this encounter Administered Medications Inactive [...] documented as of this encounter Care Teams Special Librarian Relationship Specialty Start Date End Date Aydee Burton, PCP - General Nurse Practitioner - 05/17/21 ON SITE PROPERTY MANAGER SENIOR IT SPECIALIST Family [address] [place], [place] [address] Aydee Burton, Assigned PCP 04/28/21 ON SITE PROPERTY MANAGER SENIOR IT SPECIALIST [address] [place] [address] [phone] Louisa Hood, Assigned Neuroscience 07/11/21 ON SITE PROPERTY MANAGER SENIOR IT SPECIALIST Provider [address] [place], [place] [address] Se Levy, Lead C Programmer 08/05/21 05/12/22 Clari Francois Pharmacist Pharmacist 08/06/21 06/07/22 JORDAN Banks [address] [place] [phone] [place], Assigned Sleep 08/01/21 Angel Turcios, Provider [address] [place] [address] Lesly Celaya MD Assigned Surgical 09/05/21 [address] [facility] Provider [place], [place] [phone] Tawana Patel MA [facility] 09/30/21 Worker Ramses Mcpherson Assigned OBGYN 11/07/21 MD Onesimo Provider [address] [place] [address] Kirk Barrera MD Critical Care 01/24/22 MD 420 [facility] [address] [place] [address] Kirk Barrera, Assigned Pulmonology 02/06/22 MD Provider 420 [facility] [address] [place] [address] Lesvia Stanley, GHADA Cardiac Rehabilitation 03/03/22 03/03/23 [facility] Therapist [address] [place], [place] [address] Marilia Deluna, PhD Assigned Behavioral 02/20/22 [address] [facility] Provider [place], [place] 1[address] Niyah Decker, [facility] Pharmacist Pharmacist 03/07/22 420 [facility] [address] [place], [place] [phone] Clari Poole, Pharmacist Pharmacist 03/07/22 06/15/22 [facility] [address] [facility] [address] [place], [place] [id number] Mago Swift, [facility] Lead C Programmer Law Enforcement Officer - 08/05/21 Clinical documented as of this encounter
--- OUTSIDE RECORDS SUMMARY | 2022-10-21 08:57 | XMS_ITS | Encounter Summary ---
:1980 Author Organization [facility] Address [address] [place] [address] Care Team Providers Name Role Phone Aydee Burton COMPUTER NETWORK AND SYSTEMS ENGINEER GEOLOGICAL SAMPLE TESTER Primary Care Provider Aydee Burton COMPUTER NETWORK AND SYSTEMS ENGINEER GEOLOGICAL SAMPLE TESTER Unavailable [phone] Louisa Hood COMPUTER NETWORK AND SYSTEMS ENGINEER GEOLOGICAL SAMPLE TESTER Unavailable [phone] Se Levy [facility] Unavailable Unavailable Clari Ruiz [facility] Unavailable [phone] Angel Hannah MD Unavailable Lesly Celaya MD Unavailable Tawana Patel MA Unavailable Unavailable Ramses Mcpherson MD Unavailable [phone] Obdulio Barrera MD Unavailable [phone] Obdulio Barrera MD Unavailable [phone] Lesvia Stanley Unavailable Marilia Deluna PhD Unavailable Niyah Decker [facility] Unavailable Clari Poole [facility] Unavailable Mago Swift [facility] Unavailable Reason for Visit Reason Comments Medication Therapy Management Med Therapy Management (Routine: Next available opening) - Closed Specialty Diagnoses / Procedures Referred By Contact Refer red To Contact Pharmacist Diagnoses Sleep walking and eating Polypharmacy Aydee Burton APRN GEOLOGICAL SAMPLE TESTER [address] [place] [address] Referral ID Status Reason Start Date Expiration Date Visits Requ ested Visits Authorized [id number] Closed 03/01/2022 03/01/2023 1 1 Encounter Details Date Type Department Care Team Description 03/07/[address] [facility] Aydee Burton Ch, APRN GEOLOGICAL SAMPLE TESTER [address] [place], [place] [phone] Major depressive disorder, remission sta tus unspecified, unspecified whether recurrent (Primary Dx); [facility] Clari Poole, [facility] [address] [facility] [address] [place] [id number] [place] (generalized anxiety disorder); [address] [facility] PTSD (post -traumatic stress disorder); [address] Asthma; [address] Pain; [place], [place] Takes dietary supplements; [phone] Severe asthma, unspecified w hether complicated, unspecified whether persistent [phone] Social History Tobacco Use Types Packs/Day Years [...] How often do you attend pentecostal or jehovah's witness services? Never 08/05/2021 Do [...] at Date Recorded Female 11/09/2021 7:53 PM NAILHEAD SETTER COVID-19 Exposure Response Date Recorded In [...] encounter Patient Instructions Patient InstructionsWeClari dejesus, [facility] - 03/07/2022 10:38 AM CDT Recommendations from [...] may receive an email or textmessage from [employer] with a link to a survey related to your ???clinical pharmacist. To schedule another MTM appointment, please call the clinic directly or you may call the MTM scheduling line at [phone] or toll-free at . My Clinical Pharmacist's contact information: Please feel free to contact me with any questions or concerns you have. Clari Poole PharmD Medication Therapy Management Resident Pager: [phone] documented in this encounter Progress Notes Clari [...] affording medications. The patient fills medications at [facility]: NO, fills medications at [facility]. Depression/Anxiety/PTSD: Current medications include: bupropion XL 300 [...] this [facility] on [facility]/11[facility] ([phone]) PHQ 06/27/2021 01/24/2022 03/01/2022 PHQ-9 Total Score [...] persistent. 3. Referrals: neurology headache clinic at [facility]. 4. Medication Management:? Gabapentin 400mg QID ?? [...] Poole, PharmD Medication Therapy Management Resident Pager: [phone] Medication Therapy Recommendations Asthma Current Medication: budesonide-formoterol (SYMBICORT) 160-4.5 MCG/ACT Inhaler Rationale: Synergistic therapy - Needs additional medication therapy - Indication Recommendation: Start Medication - montelukast 10 MG tablet Status: Contact Provider - Awaiting Response documented in this encounter Plan of Treatment Upcoming Encounters Date Type Specialty Care Team Description 10/21/2022 Office Visit Pulmonology Obdulio Barrera MD [address] [phone] (Wo rk) 10/25/2022 PRE VISIT ENT Charo Burton MD Previsit [address] [place], [place] [phone] (Wo rk) 10/25/2022 Office Visit Charo Carter MD [address] [place], [place] [address] (Wo rk) 10/25/2022 Office Visit ENT Provider, Ent Dysphonia Case Assistant 10/25/2022 Virtual Visit Pain & Palliative [place] [address] [place], [place] [address] 10/28/2022 Appointment Speech Therapy Anabel Chew, CELINE [address] [address] (Wo rk) 11/17/2022 Appointment Speech Therapy Anabel Chew SLP [address] 3365[address] (Wo rk) 12/01/2022 Office Visit Pain & [place] [address] [place], [place] [address] (Wo rk) 12/23/2022 Office Visit Neurology Colby Yeung MD [address] [place] [address] (Wo rk) Scheduled Referrals Name Type Priority [...] documented as of this encounter Care Teams Ivf Embryologist Relationship Specialty Start Date End Date Aydee Burton, PCP - General Nurse Practitioner - 05/17/21 COMPUTER NETWORK AND SYSTEMS ENGINEER GEOLOGICAL SAMPLE TESTER Family [address] [place] [phone] Aydee Burton, Assigned PCP 04/28/21 COMPUTER NETWORK AND SYSTEMS ENGINEER GEOLOGICAL SAMPLE TESTER [address] [place] [address] Louisa Hood, Assigned Neuroscience 07/11/21 COMPUTER NETWORK AND SYSTEMS ENGINEER GEOLOGICAL SAMPLE TESTER Provider [address] [place] [address] Se Levy, Lead Enterprise Application Analyst 08/05/21 05/12/22 Clari Francois Pharmacist Pharmacist 08/06/21 06/07/[address] [place], [place] [address] [place], Assigned Sleep 08/01/21 Angel Turcios, Provider [address] [place], [place] [address] Lesly Celaya MD Assigned Surgical 09/05/21 [address] [facility] Provider [place], [place] [address] Tawana Patel MA [facility] 09/30/21 Worker Ramses Mcpherson Assigned OBGYN 11/07/21 MD Onesimo Provider [address] [place], [place] [address] Obdulio Barrera MD Critical Care 01/24/[address] [place] [address] 276 [place], [place] [address] Obdulio Barrera, Assigned Pulmonology 02/06/22 MD Provider [address] [place] [address] 276 [place], [place] [address] Lesvia Stanley, GHADA Cardiac Rehabilitation 03/03/22 03/03/23 [facility] Therapist [address] [place], [place] [address] Marilia Deluna, PhD Assigned Behavioral 02/20/22 [address] [facility] Provider [place], [place] [address] Niyah Decker, [facility] Pharmacist Pharmacist 03/07/22 420 [facility] [address] [place], [place] [address] Clari Poole, Pharmacist Pharmacist 03/07/22 06/15/22 [facility] [address] [facility] [address] [place], [place] [phone] Mago Swift, [facility] Lead Enterprise Application Analyst Automotive Customer Experience Advisor - 08/05/21 Clinical documented as of this encounter
--- OUTSIDE RECORDS SUMMARY | 2022-10-21 08:57 | XMS_ITS | Encounter Summary ---
:1980 Author Organization [facility] Address [address] [place] [address] Care Team Providers Name Role Phone Aydee Burton CHAIN BUILDER LOOM CONTROL SUPERVISOR ANODIZING Primary Care Provider Aydee Burton CHAIN BUILDER LOOM CONTROL SUPERVISOR ANODIZING Unavailable [phone] Louisa Hood CHAIN BUILDER LOOM CONTROL SUPERVISOR ANODIZING Unavailable [phone] Se Levy [facility] Unavailable Unavailable Clari Ruiz [facility] Unavailable [phone] Angel Hannah MD Unavailable Lesly Celaya MD Unavailable Tawana Patel MA Unavailable Unavailable Ramses Mcpherson MD Unavailable [phone] Obdulio Barrera MD Unavailable [phone] Obdulio Barrera MD Unavailable Lesvia Stanley Unavailable Marilia Deluna PhD Unavailable Niyah Decker [facility] Unavailable Clari Poole [facility] Unavailable [facility] Unavailable Encounter Details Date Type Department [...] How often do you attend restorationist or buddhism services? Never 08/05/2021 Do you [...] at Date Recorded Female 11/09/2021 7:[address] MANAGER COVID-19 Exposure Response Date Recorded In the last 10 days, have you been in contact with No / Unsu re 03/08/2022 2:16 PM CDT someone who was confirmed or suspected to have Coronavirus/COVID-19? documented as of this encounter Plan of Treatment Upcoming Encounters Date Type Specialty Care Team Description 10/21/2022 Office Visit Pulmonology Obdulio Barrera MD 420 [facility] [address] [place], [place] [address] (Wo rk) 10/25/2022 PRE VISIT ENT Charo Burton MD Previsit [address] [place] [address] [phone] (Wo rk) 10/25/2022 Office Visit ENT Charo Burton MD [address] [place] [phone] (Wo rk) 10/25/2022 Office Visit ENT Provider, Ent Dysphonia Clerical Supervisor 10/25/2022 Virtual Visit Pain & [place] [address] [place], [place] [address] 10/28/2022 Appointment Speech Therapy Anabel Chew, FEATHER RENOVATOR [address] [place], [place] [address] (Wo rk) 11/17/2022 Appointment Speech Therapy Anabel Chew, FEATHER RENOVATOR [address] [place], [place] [phone] (Wo rk) 12/01/2022 Office Visit Pain & [place] [address] [place], [place] [address] (Wo rk) 12/23/2022 Office Visit Neurology Colby Yeung MD [address] [address] (Wo rk) documented as of this encounter Visit Diagnoses Not on filedocumented in this encounter Additional Health Concerns Infection Onset Date Last Indicated Resolved Time Rule Out COVID-19 03/08/2022 03/08/2022 03/08/2022 4:1 9 PM CDT Rule Out Pertussis 03/08/2022 03/08/202203/0903/09/2022 9: 56 AM CDT Assessment Noted Time PHQ-9 Depression Total Score: 20 03/02/2022 7:02 AM CD T documented as of this encounter Care Teams Mast Maker Relationship Specialty Start Date End Date Aydee Burton, PCP - General Nurse Practitioner - 05/17/21 CHAIN BUILDER LOOM CONTROL SUPERVISOR ANODIZING Family [address] [place], [place] [phone] Aydee Burton, Assigned PCP 04/28/21 CHAIN BUILDER LOOM CONTROL SUPERVISOR ANODIZING [address] [place], [place] [phone] Louisa Hood, Assigned Neuroscience 07/11/21 CHAIN BUILDER LOOM CONTROL SUPERVISOR ANODIZING Provider [address] [place], [place] [phone] Se Levy, Lead Wildlife Refuge Manager 08/05/21 05/12/22 Clari Francois Pharmacist Pharmacist 08/06/21 06/07/22 Jocelyn, [facility] [address] [place] [address] [place], Assigned Sleep 08/01/21 Angel Turcios, Provider [address] [place], [place] [phone] Lesly Celaya MD Assigned Surgical 09/05/21 [address] Provider [place], [place] [phone] Tawana Patel MA [facility] 09/30/21 Worker Ramses Mcpherson Assigned OBGYN 11/07/21 MD Onesimo Provider [address] [place], [place] [phone] Obdulio Barrera MD Critical Care 01/24/22 420 [facility] [address] [place], [place] [phone] Obdulio Barrera, Assigned Pulmonology 02/06/22 MD Provider 420 [facility] [address] [place], [place] [address] Lesvia Stanley, GHADA Cardiac Rehabilitation 03/03/22 03/03/23 [facility] Therapist [address] [place] [address] Marilia Deluna, PhD Assigned Behavioral 02/20/22 [address] [facility] Health Provider [place], [place] [address] Niyah Decker, [facility] Pharmacist Pharmacist 03/07/22 420 [facility] [address] [place] [address] Clari Poole, Pharmacist Pharmacist 03/07/22 06/15/22 [facility] [address] [facility] [place] [address] Mago Swift, [facility] Lead Wildlife Refuge Manager Visual C Developer - 08/05/21 Clinical documented as of this encounter
--- OUTSIDE RECORDS SUMMARY | 2022-10-21 08:57 | XMS_ITS | Encounter Summary ---
:1980 Author Organization [place] Address [address] [place] [address] Care Team Providers Name Role Phone Aydee Burton DEBURRING MACHINE OPERATOR MEAT LUGGER Primary Care Provider Aydee Burton DEBURRING MACHINE OPERATOR MEAT LUGGER Unavailable [phone] Louisa Hood DEBURRING MACHINE OPERATOR MEAT LUGGER Unavailable [phone] Se Levy [facility] Unavailable Unavailable Clari Ruiz [facility] Unavailable [phone] Angel Hannah MD Unavailable Lesly Celaya MD Unavailable Tawana Patel MA Unavailable Unavailable Ramses Mcpherson MD Unavailable [phone] Kirk Barrera MD Unavailable [phone] Kirk Barrera MD Unavailable [phone] Lesvia Stanley Unavailable Marilia Deluna PhD Unavailable Niyah Decker [facility] Unavailable Clari Poole [facility] Unavailable Mago Swift [facility] Unavailable Reason for Referral Diagnostic Imaging Ultrasound (Routine) - Pending Review Specialty Diagnoses / Procedures Referred By Contact Refer red To Contact Diagnoses Leg swelling Nelson Mcintyre Procedures US Lower Extremity Venous Duplex Bilateral MD Tima [address] [facility] [address] [place] [address] Referral ID Status Reason Start Date Expiration Date Visits V isits Requested Authorized [id number] Pending 03/08/2022 03/08/2023 [address] Scan (Routine) - Closed Specialty Diagnoses / Procedures Referred By Contact Refer red To Contact Diagnoses SOB (shortness of breath) Nelson Mcintyre Procedures CT Chest Pulmonary Embolism w Contrast MD Tima [address] [place] [address] Referral ID Status Reason Start Date Expiration Date Visits Requ ested Visits Authorized [id number] Closed 03/08/2022 03/08/2023 1 1 Reason for Visit Reason Comments Shortness of Breath Since Hysterectomy on 022 Edema Bilateral ankle swelling X 6 days Consultation (Routine) - Closed Specialty Diagnoses / Procedures Referred By Contact Refer red To Contact Diagnoses SOB (shortness of breath) Leg swelling Discoloration of skin of multiple sites of lower extremity Lory Nunez PA-C [address] [address] Phone: Referral ID Status Reason Start Date Expiration Date Visits Requ ested Visits Authorized [id number] Closed 03/08/2022 03/08/2023 1 1 Encounter Details Date Type Department Care Team Description 03/08/2022 Office Visit [facility] Nelson Mcintyre nodule (Primary Dx); Clinic Alexander Iftikhar Alfred MD SOB (shortness of breath); [address] [facility] [address] Leg swelling; [address] Discoloration of skin of multiple sites of lower extremity; [facility], [place] [address] Severe episode of recurrent major depres sive [...] often do you attend roman catholic or yazdanism services? 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/2021 7:53 PM TIMBER CUTTER COVID-19 Exposure Response Date Recorded In [...] documented in this encounter Patient Instructions Patient InstructionsJohnNelson tomlin MD - 03/08/2022 4:57 PM CDT Advise [...] - D dimer, quantitative - B. pertussis/parapertussis PCR-SECURITY INSTALLATION SALES TECHNICIAN - ipratropium - albuterol 0.5 mg/2.5 mg/3 [...] - fluticasone (FLONASE) 50 MCG/ACT nasal spray; [place] 2 sprays into both nostrils daily - [...] No follow-ups on file. Nelson Mcintyre [facility] is a 42 year old who presents for the following health issues HPI Shortness of Breath/Breathing Problem Onset/Duration: X 2 months Progression of Symptoms: worsening Accompanying Signs & Symptoms: SOB at rest: no SOB with activity: YES Pain with inspiration: no Cough: YES- non productive [place] tinged sputum: no Sweating: no Nausea/vomiting: YES- [...] US LOWER EXTREMITY VENOUS DUPLEX BILATERAL LOCATION: [facility] DATE/TIME: 03/08/2022 4:22 PM INDICATION: b [...] 3D MIP reconstructions were performed by the cytogenetics technologist. Dose reduction techniques were used. CONTRAST: [...] the Xpert Xpress CoV2/Flu/RSV Assay on the Mayi Zhaopin GeneXpert Instrument. This test should be ordered [...] management. This test was validated by the [facility]. These laboratories are certified under the Clinical [...] Intrp See Note (A) Negative B. pertussis/parapertussis PCR-SECURITY INSTALLATION SALES TECHNICIAN Status: Normal Specimen: Nasopharyngeal; Swab Result Value Ref Range Bordetella pertussis DNA Not Detected Not Detected Bordetella parapertussis DNA Not Detected Not Detected Narrative The HelioVolt Simplexa (TM) Bordetella Direct assay is a FDA-approved, real-time PCR test for the qualitative detection and differentiation of Bordetella pertussis and Bordetella parapertussis in nasopharyngeal swabs. Testing is performed by the Infectious Diseases Diagnostic Laboratory of [facility]. This test is used for [...] Status --------- ------ CBC with platelets and d...[[id number]] Abnormal Final result Please view results for these tests on the individual orders. documented in this encounter Plan of Treatment Upcoming Encounters Date Type Specialty Care Team Description 10/21/2022 Office Visit Pulmonology Kirk Barrera MD [address] [address] (Wo edilberto) 10/25/2022 PRE VISIT ENT Charo Burton MD Previsit [address] [place] [address] (Wo rk) 10/25/2022 Office Visit ENT Charo Burton MD [address] [place], [place] [address] (Wo rk) 10/25/2022 Office Visit ENT Provider, Jeannette Ent Dysphonia Supervisor Train Operations 10/25/2022 Virtual Visit Pain & Palliative [place] [address] [place], [place] [address] 10/28/2022 Appointment Speech Therapy Anabel Chew, HEALTHCARE ANALYST [address] [phone] (Wo rk) 11/17/2022 Appointment Speech Therapy Anabel Chew, HEALTHCARE ANALYST [address] [phone] (Wo rk) 12/01/2022 Office Visit Pain & [place] [address] [place], [place] [address] (Wo rk) 12/23/2022 Office Visit Neurology Colby Yeung MD [address] [place] [address] (Wo rk) documented as of [...] US LOWER EXTREMITY VENOUS DUPLEX BILATERAL LOCATION: [facility] DATE/TIME: 03/08/2022 4:22 PM INDICATION: b [...] LOWER EXTREMITY VENOUS DUPLEX B ILATERAL LOCATION: [facility] DATE/TIME: 03/08/2022 4:22 PM INDICATION: b [...] 3D MIP reconstructions were performed by the cytogenetics technologist. Dose reduction techniques were used. CONTRAST: [...] 3D MIP reconstructions were performed by the cytogenetics technologist. Dose reduction techniques were used. CONTRAST: [...] ANTIBODY, IGG IMMUNOBLOT (03/08/2022 3:16 PM CDT) [facility] Method Time Signature B pertussis Positive 03/11/2022 [...] to multiple species of Bordetella. Performed By: [facility] [address] [place] [address] Laser/Electro Optics Technician: Florence Naranjo MD Specimen Anatomical Collection Method / Collection Time Recei edil Time (Source) Location / Volume Laterality Blood VENOUS LINE / Venipuncture / 03/08/2022 3:16 2 3:59 Unknown Unknown PM CDT PM CDT Nelson Mcintyre MD LAB - BLOOD ORDERAB LES Performing Organization Address City/State/ZIP Code Phon e Number [place], [place] [phone] [address] [facility] [address] (ABNORMAL) Bordetalla pertussis Randy IgG with Reflex (03/08/2022 3:16 PM CDT) athologist Signature B. pertussis 4.23 (H) <=1.04 IV 03/10/2022 SpineGuard Ab, IgG by 1:24 PM CDT TAMELA [...] and its performa nce characteristics determined by [facility]. It has not been cleared or approved by the US Food and Drug Adminis tration. This test was performed in a CLIA certified labora tory and is intended for clinical purposes. Performed By: [facility] [address] [place] [address] Laser/Electro Optics Technician: Florence Naranjo MD Specimen Anatomical Collection Method / Collection Time Recei edil Time (Source) Location / Volume Laterality Blood VENOUS LINE / Venipuncture / 03/08/2022 3:16 2 3:59 Unknown Unknown PM CDT PM CDT Nelson Mcintyre MD LAB - BLOOD ORDERAB LES Performing Organization Address City/[facility]/ZIP Code Phon e Number [place], [place] [phone] [address] [facility] [address] (ABNORMAL) CK total (03/08/2022 3:08 PM CDT) [...] - BLOOD ORDERAB LES Performing Organization Address City/[facility]/ZIP Code Ph[place] [address] Care [address] Lab (1st floor, no room number) [...] Address City/State/ZIP Code [place] [address] Care Lab [address] Lab (1st floor, no room number) [...] - BLOOD ORDERAB LES Performing Organization Address City/[facility]/ZIP Code [place] [phone] Care Lab [address] Lab (1st floor, no room number) Asymptomatic Influenza A/B & SARS-CoV2 (COVID-19) Virus PCR Multiplex Nasopharyngeal (23:08 PM CDT) Analysis Performed At [facility] Time Signature Influenza A Negative Negative 03/08/2022 LABORATORY PCR 5:39 PM CDT Influenza B Negative Negative 03/08/2022 LABORATORY PCR 5:39 PM CDT RSV PCR [...] the Xpert Xpress CoV2/Flu/RSV Assay on the FantáxicoXpert Instrument. This test should be ordered for [...] management. This test was validated by the [facility]. These laboratories are certified under the Clinical Laboratory Improvement Amendments of 198 8 (CLIA-88) as qualified to perform high complexity laboratory testing. Nelson Mcintyre MD LAB - MICRO GENERAL ORDERABLES Performing Organization Address City/State/ZIP Code [place] [address] Care Lab [address] [facility] Lab (1st floor, no room number) (ABNORMAL) CBC with platelets and differential (03/08/2022 3:08 PM CDT) [facility] gist Method Time Signature WBC Count 5.9 4.0 - 03/08/2022 [facility] 11.0 4:07 PM CDT 10e3/uL RBC Count 4.20 3.80 - 03/08/2022 [facility] 5.20 4:07 PM CDT 10e6/uL Hemoglobin 12.6 11.7 - 03/08/2022 [facility] 15.7 g/dL 4:07 PM CDT Hematocrit 40.7 35.0 - 03/08/2022 [facility] 47.0 % 4:07 PM CDT MCV 97 78 - 100 03/08/2022 [facility] fL 4:07 PM CDT MCH 30.0 26.5 - 03/08/2022 [facility] 33.0 pg 4:07 PM CDT MCHC [...] City/State/ZIP Code [place] [address] Care Lab [address] Lab (1st floor, no room number) B. pertussis/parapertussis PCR-SECURITY INSTALLATION SALES TECHNICIAN (03/08/2022 3:08 PM CDT) [facility] Method Time Signature Bordetella Not Detected Not [...] - 03/09/2022 9:56 AM C DT The pushd Molecular Simplexa (TM) Bor detella Direct assay is a FDA-approved, real-time PCR test for the qualitative d etection and differentiation of Bordetella pertussis and Bordetella parapertussis i n nasopharyngeal swabs. Testing is performed by the Infectious Diseases Diagnostic La boratory of [facility]. This test is used for clinical [...] e Number [facility] LABORATORY [facility] [place] [phone] Diag. Lab [address] [facility], Room D297 (ABNORMAL) D dimer, quantitative (03/08/2022 3:08 PM CDT) Data Elite Method Time Signature D-Dimer 0.77 (H) 0.00 - 03/08/2022 LABORATORY Quantitative 0.50 4:19 PM CDT ug/mL FEU Specimen Anatomical Collection Method / Collection Time Recei edil Time (Source) Location / Volume Laterality Blood VENOUS LINE / Venipuncture / 03/08/2022 3:08 2 3:59 Unknown Unknown PM CDT PM CDT Narrative LABORATORY - 03/08/2022 4:19 PM CDT This [...] Address City/State/ZIP Code [place] [address] Care Lab [address] Lab (1st floor, no room number) Troponin I (03/08/2022 3:08 PM CDT) athologist Signature Troponin I High <3 <54 ng/L 03/08/2022 LABORATORY Sensitivity 4:26 PM CDT Comment: This Troponin-I result was obta ined using a Siemens Dimension [place] High Sensitivity Troponin-I assay (TNIH). Eff ective 10/05/21, nine labs/sites in the [facility] switched from a Siemens [place] Contemporary Troponin I assay (CTNI) to a Siemens [place] High-Sensitivity Troponi n I assay (TNIH). Specimen Anatomical Collection Method / Collection Time Recei edil Time (Source) Location / Volume Laterality Blood VENOUS LINE / Venipuncture / 03/08/2022 3:08 2 3:59 Unknown Unknown PM CDT PM CDT Nelson Mcintyre MD LAB - BLOOD ORDERAB LES Performing Organization Address City/State/ZIP [place] [address] Care Lab [address] Lab (1st floor, no room number) BNP-N terminal pro (03/08/2022 3:08 PM CDT) athologist Signature N Terminal Pro 48 0 - 125 03/08/2022 LABORATORY BNP Outpatient pg/mL 4:26 PM CDT [...] Address City/State/ZIP Code [place] [phone] Care Lab [address] Lab (1st floor, no room number) [...] ALT 40 0 - 50 U/L 03/08/2022 [facility] 4:24 PM CDT Protein Total 7.1 6.8 - 8.8 03/08/2022 [facility] g/dL 4:24 PM CDT Albumin 3.8 3.4 - 5.0 03/08/2022 [facility] g/dL 4:24 PM CDT Bilirubin Total 0.6 0.2 - 1.3 03/08/2022 [facility] LAB[facility]ORY mg/dL 4:24 PM CDT GFR Estimate >90 >60 03/08/2022 LABORATORY mL/min/1.7 4:24 PM CDT 3m2 Comment: Effective November 02, 2021 eGF Rcr in adults is calculated using the 2020 CKD-EPI creatinine equation which includ es age and gender (Yulia et al., NEJM, DOI: 10.1056/XHXNlg2459423) Specimen Anatomical Collection Method / Collection Time Recei edil Time (Source) Location / Volume Laterality Blood VENOUS LINE / Venipuncture / 03/08/2022 3:08 2 3:59 Unknown Unknown PM CDT PM CDT Nelson Mcintyre MD LAB - BLOOD ORDERAB LES Performing Organization Address City/State/ZIP Code [place] [phone] Care Lab [address] Lab (1st floor, no room number) [...] of breath Leg swelling Swelling of limb documented in this encounter Administered Medications Inactive [...] documented as of this encounter Care Teams Menswear Salesperson Relationship Specialty Start Date End Date Aydee Burton, PCP - General Nurse Practitioner - 05/17/21 DEBURRING MACHINE OPERATOR MEAT LUGGER Family [address] [place] [address] 664372 Aydee Burton, Assigned PCP 04/28/21 DEBURRING MACHINE OPERATOR MEAT LUGGER [address] [place] [address] [phone] Louisa Hood, Assigned Neuroscience 07/11/21 DEBURRING MACHINE OPERATOR MEAT LUGGER Provider [address] [place] [phone] Se Levy, Lead Hearing Health Technician 08/05/21 05/12/22 Clari Francois Pharmacist Pharmacist 08/06/21 06/07/22 Jcoelyn [facility] [address] [place] [address] [place], Assigned Sleep 08/01/21 Angel Turcios, Provider [address] [place] [address] Lesly Celaya MD Assigned Surgical 09/05/21 [address] [place] [address] Tawana Patel MA [facility] 09/30/21 Worker Ramses Mcpherson Assigned OBGYN 11/07/21 MD Onesimo Provider [address] [place] [address] Kirk Barrera MD Critical Care 01/24/[address] [place] [address] 276 [place], [place] [address] Kirk Barrera, Assigned Pulmonology 02/06/22 MD Provider [address] [place] [address] 276 [place], [place] [phone] Lesvia Stanley EP Cardiac Rehabilitation 03/03/22 03/03/23 [facility] Therapist [address] [facility] [facility] [address] [place], [place] [address] Marilia Deluna, PhD Assigned Behavioral 02/20/22 [address] [facility] Provider [place], [place] [phone] Niyah Decker, [facility] Pharmacist Pharmacist 03/07/22 [address] [facility] [address] [place], [place] [phone] Clari Poole, Pharmacist Pharmacist 03/07/22 06/15/22 [facility] [address] [facility] [address] [place], [place] [address] Mago Swift, [facility] Lead Hearing Health Technician Summer Camp Counselor - 08/05/21 Clinical documented as of this encounter
--- OUTSIDE RECORDS SUMMARY | 2022-10-21 08:57 | XMS_ITS | Encounter Summary ---
:1980 Author Organization [facility] Address [address] [place] [address] Care Team Providers Name Role Phone Aydee Burton TIRE CENTER SUPERVISOR WINDOW SHADE CUTTER Primary Care Provider Aydee Burton TIRE CENTER SUPERVISOR WINDOW SHADE CUTTER Unavailable [phone] Louisa Hood TIRE CENTER SUPERVISOR WINDOW SHADE CUTTER Unavailable [phone] Se Levy [employer] PLANT GRINDER Unavailable Unavailable Clari Ruiz [facility] Unavailable [phone] Angel Hannah MD Unavailable Lesly Celaya MD Unavailable Tawana Patel MA Unavailable Unavailable Ramses Mcpherson MD Unavailable [phone] Obdulio Barrera MD Unavailable [phone] Obdulio Barrera MD Unavailable [phone] Marilia Deluna PhD Unavailable Mago Swift TORCH CUTTER Unavailable Reason for Referral Consultation (Routine: Next available opening) - Closed Specialty Diagnoses / Procedures Referred By Contact Refer red To Contact Diagnoses Bilateral occipital neuralgia Chronic tension-type headache, not intractable Chronic myofascial pain Lucas Anaya [facility] MD Romel [address] [place] [address] [place] [phone] Referral ID Status Reason Start Date Expiration Date Visits Requ ested Visits Authorized [id number] Closed 02/24/2022 02/24/2023 1 1 Encounter Details Date Type Department Care Team Description 02/24/2022 Office Visit [facility] Lucas Anaya Bilwalter teral occipital neuralgia (Primary Dx); Pain Management MD Romel Chronic tension-type headache, not intra ctable; [place] [id number] [place] [address] Chronic myofascial pain [address] [place] [address] [address] [place], [place] [address] [phone] Social History Tobacco Use Types Packs/Day Years [...] How often do you attend temple or adventism services? 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/2021 7:53 PM PRODUCTION AIDE COVID-19 Exposure Response Date Recorded In [...] a referral to the neurology clinic at [facility] to evaluate and treat your headaches. If this is scheduled out far, then call the number below and we can do the occipital injections and trigger point injections to help with your pain until you see them. Continue working with Marilia. No medication changes today. Take gabapentin 400mg four times daily as ordered. Take Lucas shea DO [facility] Clinic Number: [phone] Call with any questions about your care and for scheduling assistance. Calls are returned Monday through Monday between 8 AM and 4:30 PM. We usually get back to you within2 business days depending on the issue/request. If we are prescribing your medications: For opioid medication refills, call the clinic or send a Glocalhart message 7 days in advance. Please include: Name of requested medication Name of the pharmacy. For non-opioid medications, call your pharmacy directly to request a refill. Please allow 3-4 days to be processed. Per [place] State Law: All controlled substance prescriptions must [...] Anaya MD - 02/24/2022 1:30 PM CDT [facility] Date of visit: 02/24/22 Assessment: Marta Hill is a 42 year old with past medical history including: PTSD, Anxiety, Depression, who presents for evaluation and treatment of the following chronic pain conditions: ?? 1. Chronic headaches: Marta has had a long standing history of chronic neck pain and headaches and has been diagnosed with occipital neuralgia at [facility] years ago. Currently they are experiencing [...] persistent. 5. Referrals: neurology headache clinic at [facility]. 6. Medication Management: 1. Gabapentin 400mg QID 2. Continue duloxetine 120mg qhs 3. Methocarbamol 500-750mg TID prn. 4. Advised not to take more than 1 type of nsaid during the same day. 7. Further procedures recommended: TPI and bilateral ONB can be repeated every 3+ months. 8. Follow up: 2 months. Lucas Anaya DO [facility] Pain Management Chief complaint: Interval history: Marta [...] years ago - made headaches worse - [facility] 6. Alternative Therapies: Chiropractic: hasn't tried Acupuncture: [...] professionals Time spent documenting clinical information in [facility] Lucas Anaya DO [facility] documented in this encounter Nursing Notes Ashleigh Martinez - 02/24/2022 1:30 PM CDT PEG Score 11/10/2021 12/14/2021 02/24/2022 PEG Total Score 7 7 7.33 documented in this encounter Plan of Treatment Upcoming Encounters Date Type Specialty Care Team Description 10/21/2022 Office Visit Pulmonology BedfordObdulio MD [address] [phone] (Wo rk) 10/25/2022 PRE VISIT ENT Charo Burton MD Previsit [address] [place] [phone] (Wo rk) 10/25/2022 Office Visit ENT Charo Burton MD [address] [place] [phone] (Wo rk) 10/25/2022 Office Visit ENT Provider, Ent Dysphonia Weight And Test Bar Clerk 10/25/2022 Virtual Visit Pain & Palliative [place] [address] [place], [place] [address] 10/28/2022 Appointment Speech Therapy Anabel Chew, WOODEN BARREL MECHANIC [address] [place], [place] [address] (Wo rk) 11/17/2022 Appointment Speech Therapy Anabel Chew, WOODEN BARREL MECHANIC [address] [place], [place] [address] (Wo rk) 12/01/2022 Office Visit Pain & [place] [address] [place], [place] [address] (Wo rk) 12/23/2022 Office Visit Neurology Colby Yeung MD [address] [place] [address] (Wo rk) Scheduled Referrals Name Type Priority Associated Diagnoses Order S chedule Adult Neurology Referral Routine: Next Bilateral occipital Expe cted: Cane Flume Watcher Referral available opening neuralgia 02/24/2022 Chronic tension-type (Approx imate), headache, not Expires: intractable 02/24/2023 Chronic myofascial pain documented as of this encounter Visit Diagnoses Diagnosis Bilateral occipital neuralgia - Primary Other syndromes affecting cervical regio n Chronic tension-type headache, not intra ctable Chronic tension type headache Chronic myofascial pain Mylagia and myositis, unspecified documented in this encounter Additional Health Concerns Assessment Noted Time PHQ-9 Depression Total Score: 15 2022 7:02 AM CD T documented as of this encounter Care Teams Manager Work Relationship Specialty Start Date End Date Aydee Burton, PCP - General Nurse Practitioner - 05/17/21 TIRE CENTER SUPERVISOR WINDOW SHADE CUTTER Family [address] [place] [address] [phone] Aydee Burton, Assigned PCP 04/28/21 TIRE CENTER SUPERVISOR WINDOW SHADE CUTTER [address] [place] [address] [phone] Louisa Hood, Assigned Neuroscience 07/11/21 TIRE CENTER SUPERVISOR WINDOW SHADE CUTTER Provider [address] [place], [place] [phone] Se Levy, Lead Benefits Clerk 08/05/21 05/12/22 Clari Francois Pharmacist Pharmacist 08/06/21 06/07/[address] [facility] [address] [place], [place] [phone] [place], Assigned Sleep 08/01/21 Angel Turcios, Provider [address] [place], [place] [phone] Lesly Celaya MD Assigned Surgical 09/05/21 [address] [place] [address] [place] [address] Tawana Patel MA [facility] 09/30/21 Worker Ramses Mcpherson Assigned OBGYN 11/07/21 MD Onesimo Provider [address] [place] [address] Obdulio Barrera MD Critical Care 01/24/[address] [phone] Obdulio Barrera, Assigned Pulmonology 02/06/22 MD Provider [address] [place] [address] [phone] Marilia Deluna, PhD Assigned Behavioral 02/20/22 [address] [facility] [place] [address] Mago Swift TORCH CUTTER Lead Benefits Clerk Ground Crew Linesman - 08/05/21 Clinical documented as of this encounter
--- OUTSIDE RECORDS SUMMARY | 2022-10-21 08:57 | XMS_ITS | Encounter Summary ---
:1980 Author Organization [place] Address [address] [place] [address] Care Team Providers Name Role Phone Aydee Nam CYTOGENETICS LABORATORY MANAGER MEDICINE ASSISTANT Primary Care Provider Aydee Nam CYTOGENETICS LABORATORY MANAGER MEDICINE ASSISTANT Unavailable [phone] Louisa Hood CYTOGENETICS LABORATORY MANAGER MEDICINE ASSISTANT Unavailable [phone] Se Levy [facility] Unavailable Unavailable Clari Ruiz [facility] Unavailable [phone] Angel Hannah MD Unavailable Lesly Celaya MD Unavailable Tawana Patel MA Unavailable Unavailable Ramses Mcpherson MD Unavailable [phone] Obdulio Barrera MD Unavailable [phone] Obdulio Barrera MD Unavailable [phone] Lesvia Stanley Unavailable Marilia Deluna PhD Unavailable Niyah Decker [facility] Unavailable Clari Poole [facility] Unavailable Mago Swift [facility] Unavailable Reason for Referral Diagnostic Imaging Ultrasound (Routine) - Pending Review Specialty Diagnoses / Procedures Referred By Contact Refer red To Contact Diagnoses Abnormal CT scan, chest Breast nodule Aydee Nam APRN Procedures US Breast Right Limited 1-3 Quadrants MEDICINE ASSISTANT [address] [place] [address] Referral ID Status Reason Start Date Expiration Date Visits V isits Requested Authorized [id number] Pending 03/08/2022 03/08/2023 1 1 Review Diagnostic Imaging Mammo (Routine) - Pending Review Specialty Diagnoses / Procedures Referred By Contact Refer red To Contact Diagnoses Abnormal CT scan, chest Breast nodule Aydee Nam APRN Procedures MA Diagnostic with Implants Bilateral w/Matias MEDICINE ASSISTANT [address] [place] [address] Referral ID Status Reason Start Date Expiration Date Visits V isits Requested Authorized [id number] Pending 03/08/2022 03/08/2023 1 1 Review Reason for Visit Reason Onset Date Comments Appointment 03/08/2022 SWOLLEN ANKLES AND B RUISING Encounter Details Date Type Department Care Team Description 03/08/2022 Telephone [facility] Roundup ELADIO Mendez CNP ANKLES AND BRUISING) [address] [place] [address] [place], [place] [phone] (Wo rk) [address] [phone] Social History Tobacco Use Types Packs/Day Years [...] How often do you attend alevism or temple services? Never 08/05/2021 Do you [...] at Date Recorded Female 11/09/2021 7:53 PM CHIN STRAP SEWER COVID-19 Exposure Response Date Recorded In the [...] be seen in ER. Abril Castaneda RN [facility] Telephone Encounter - Aydee Nam APRN CNP - 03/10/2022 12:11 PM CDT Images from the original note were not included. Will see her tomorrow in clinic unless she feels worsening red flags symptoms go to Ed. TARA Spivey- Telephone Encounter - Carolyn Alejandro RN - 03/09/2022 2:26 PM CDT Called # Telephone Information: Advised pt on the information below Pt stated that the chest pain (tightness in the chest) is worse today because she was walking in the[employer] store - she feels SOB the inhaler is not working for her ( albuterol) - she gets SOB very easily - when she moves around a tiny bit or cough she is SOB - pts mouth is very dry too. Coughing is non productive Carolyn Alejandro RN, BSN Roundup Triage Telephone Encounter - Jasson Neal RN - 03/08/2022 5:55 PM CDT Attempt # 1 Called # [phone] Left a non detailed VM to call back at and ask for any available Triage Nurse. Jasson Neal RN [facility] - Roundup Triage Telephone Encounter - Aydee Nam APRN CNP - 03/08/2022 5:43 PM CDT Images from the original note were not included. Please call patient's I see on her CT scan at the [facility] today she has broken ribs; also has [...] Nurse Triage with Huddle - provider name: AL,ACTING INSTRUCTOR - pt shoudl be seen sooner to r/greg eckert LP,PA-c stated she could see pt virtually at 120 pm . Called # Telephone Information: Advised pt on the information below Patient stated an understanding and agreed with plan. Carolyn Alejandro RN, BSN Roundup Triage Telephone Encounter - Carolyn Alejandro RN [...] PCP for review Carolyn Alejandro RN, BSN [facility] Triage Telephone Encounter - Ziyad Frausto - 03/08/2022 12:00 PM CDT Appointment scheduled for 03/11/22 to see Aydee Nam, transferred to triage team to see if there's anything patient should be doing in the meantime prior to appointment. Ziyad Frausto Rubber Factory Worker Telephone Encounter - Aydee Nam APRN CNP [...] 10/21/2022 Office Visit Pulmonology Obdulio Barrera MD [address] [place] [address] [phone] (Wo rk) 10/25/2022 PRE VISIT ENT Charo Burton MD Previsit [address] [place] [address] (Wo rk) 10/25/2022 Office Visit Charo Carter MD [address] [place] [address] [phone] (Wo rk) 10/25/2022 Office Visit ENT Provider, Jeannette Ent Dysphonia Solar Electric Practitioner 10/25/2022 Virtual Visit Pain & Palliative Care [place] [address] [place], [place] [address] 10/28/2022 Appointment Speech Therapy Anabel Chew SLP [address] 985495 (Wo rk) 11/17/2022 Appointment Speech Therapy Anabel Chew, CELINE [address] [phone] (Wo rk) 12/01/2022 Office Visit Pain & [place] [address] [facility] [place] [address] (Wo rk) 12/23/2022 Office Visit Neurology Colby Yeung MD [address] [place] [address] (Wo rk) documented as of this encounter Results US [...] the mammographic and CT findings. Aydee Nam CYTOGENETICS LABORATORY MANAGER MEDICINE ASSISTANT IMG US ORDERABLES MA Diagnostic with Implants [...] mammographic and CT findings. Aydee Nam APRN MEDICINE ASSISTANT IMG MAMMOGRAPHY ORDERABL ES documented in this [...] documented as of this encounter Care Teams Hr Intern Relationship Specialty Start Date End Date Aydee Nam, PCP - General Nurse Practitioner - 05/17/21 CYTOGENETICS LABORATORY MANAGER MEDICINE ASSISTANT Family [address] [place] [address] [phone] Aydee Nam, Assigned PCP 04/28/21 CYTOGENETICS LABORATORY MANAGER MEDICINE ASSISTANT [address] [place], [place] [phone] Louisa Hood, Assigned Neuroscience 07/11/21 CYTOGENETICS LABORATORY MANAGER MEDICINE ASSISTANT Provider [address] [place], [place] [phone] Se Levy, Lead Smoke Chaser 08/05/21 05/12/22 Clari Francois Pharmacist Pharmacist 08/06/21 06/07/22 [facility] [address] [place] [address] [place], Assigned Sleep 08/01/21 Angel Turcios, Provider [address] [place], [place] [phone] Lesly Celaya MD Assigned Surgical 09/05/21 [address] Provider [place], [place] [address] Tawana Patel MA [facility] 09/30/21 Worker Ramses Mcpherson Assigned OBGYN 11/07/21 MD Onesimo Provider [address] [place], [place] [address] Obdulio Barrera MD Critical Care 01/24/22 MD Dang [facility] [address] [place] [address] Obdulio Barrera, Assigned Pulmonology 02/06/22 MD Provider 420 [facility] [address] [place] [address] Lesvia Stanley, GHADA Cardiac Rehabilitation 03/03/22 03/03/23 [facility] Therapist [address] [place] [address] Marilia Deluna, PhD Assigned Behavioral 02/20/22 [address] [facility] [place] [address] Niyah Decker, [facility] Pharmacist Pharmacist 03/07/22 420 [facility] [address]12 [place], [place] [address] Clari Poole, Pharmacist Pharmacist 03/07/22 06/15/[address] [facility] [address] [facility] [place] [address] Mago Swift, [facility] Lead Smoke Chaser Cake Cutter Machine - 08/05/21 Clinical documented as of this encounter
--- OUTSIDE RECORDS SUMMARY | 2022-10-21 08:57 | XMS_ITS | Encounter Summary ---
:1980 Author Organization [place] Address [address] [place] [address] Care Team Providers Name Role Phone Aydee Burton BILLET SAWYER EVAPORATIVE COOLER INSTALLER Primary Care Provider Aydee Burton BILLET SAWYER EVAPORATIVE COOLER INSTALLER Unavailable [phone] Louisa Hood BILLET SAWYER EVAPORATIVE COOLER INSTALLER Unavailable [phone] Se Levy [facility] Unavailable Unavailable Clari Ruiz [facility] Unavailable [phone] Angel Hannah MD Unavailable Lesly Celaya MD Unavailable Tawana Patel MA Unavailable Unavailable Ramses Mcpherson MD Unavailable [phone] Obdulio Barrera MD Unavailable Obdulio Barrera MD Unavailable [phone] Lesvia Stanley Unavailable Marilia Deluna PhD Unavailable Niyah Decker [facility] Unavailable DelmiClari bhakta [facility] Unavailable Mago Swift [facility] Unavailable Encounter Details Date Type Department Care Team Description 03/08/2022 Virtual Visit [facility] Marilia Deluna Bil ateral occipital neuralgia (Primary Dx); Pain Management PhD Upper back pain; [address] Chronic tension-type headache, not intra ctable [address] [place], [place] [address] [address] [place] [address] Social History Tobacco Use Types [...] How often do you attend mosque or anabaptism services? Never 08/05/2021 Do you [...] at Date Recorded Female 11/09/2021 7:53 PM ULTRASOUND TESTER COVID-19 Exposure Response Date Recorded In the last 10 days, have you been in contact with No / Unsu re 03/07/2022 9:39 AM CDT someone who was confirmed or suspected to have Coronavirus/COVID-19? documented as of this encounter Progress Notes MikieCeciMarilia B - 03/08/2022 11:00 AM CDT [place]a [place] [...] invitation sent by: Text to cell phone: .[phone]} Video Start Time: 11:00 AM Additional provider [...] to review current medications - referred to key cutter and wants to discuss medications with psychiatrist [...] we ask that you call us at [phone] at least24 hours in advance to cancel.This will allow us to offer the appointment time to another patient. ?? Multiple missed appointments may lead to dismissal from the clinic. Video-Visit Details Type of service: Video Visit Video End Time (time video stopped): 11:48 AM Originating Location (pt. Location): Home Distant Location (provider location): [facility] Mode of Communication: Video Conference via [employer] Marilia Deluna PsyD LP Licensed Psychologist Outpatient Clinic Therapist [facility] Pain Management documented in this encounter Plan of Treatment Upcoming Encounters Date Type Specialty Care Team Description 10/21/2022 Office Visit Pulmonology Obdulio Barrera MD [address] 764335 (Estefanía casanova) 10/25/2022 PRE VISIT Charo Carter MD Previsit [address] [place] [address] [phone] (Estefanía casanova) 10/25/2022 Office Visit Charo Carter MD [address] [place] [address] [phone] (Estefanía casanova) 10/25/2022 Office Visit ENT Provider, Jeannette Ent Dysphonia Microsoft Dynamics Consultant 10/25/2022 Virtual Visit Pain & Palliative Care Marilia Deluna, PhD [address] [place], [place] [address] 10/28/2022 Appointment Speech Therapy Anabel Chew, ARMHOLE BASTER HAND [address] 6[address] (Wo rk) 11/17/2022 Appointment Speech Therapy Anabel Chew, ARMHOLE BASTER HAND [address] 436365 (Wo rk) 12/01/2022 Office Visit Pain & [place] [address] [place], [place] [address] (Wo rk) 12/23/2022 Office Visit Neurology Colby Yeung MD [address] [place] [address] (Wo rk) documented as of this encounter Procedures Procedure Name Priority Date/Time Associated Diagnosis Comme [facility] [place] [facility] BEHAVIOR Routine 03/08/2022 11:57 AM Bilateral [...] documented as of this encounter Care Teams Sheeter Operator Relationship Specialty Start Date End Date Aydee Burton, PCP - General Nurse Practitioner - 05/17/21 BILLET SAWYER EVAPORATIVE COOLER INSTALLER Family [address] [place] [phone] Aydee Burton, Assigned PCP 04/28/21 BILLET SAWYER [address] 940272 Louisa Hood, Assigned Neuroscience 07/11/21 BILLET SAWYER EVAPORATIVE COOLER INSTALLER Provider [address] [place] [address] Se Levy, Lead Pocket Secretary Assembler 08/05/21 05/12/22 [facility] Clari Ruiz Pharmacist Pharmacist 08/06/21 06/07/22 [facility] [address] [place] [address] [place], Assigned Sleep 08/01/21 Angel Turcios, Provider [address] [place] [address] Lesly Celaya MD Assigned Surgical 09/05/21 [address] [place] [address] Tawana Patel [facility] 09/30/21 Worker Ramses Mcpherson Assigned OBGYN 11/07/21 MD Onesimo Provider [address] [place] [address] Obdulio Barrera MD Critical Care 01/24/[address] [place] [address] 276 [place] [address] Obdulio Barrera, Assigned Pulmonology 02/06/22 Provider 420 [facility] 276 [place] [address] Lesvia Stanley EP Cardiac Rehabilitation 03/03/22 03/03/23 [facility] Therapist [address] [phone] Marilia Deluna, PhD Assigned Behavioral 02/20/22 [address] [place] [address] Niyah Decker, [facility] Pharmacist Pharmacist 03/07/22 420 [facility] 812 [place], [place] [address] Clari Poole, Pharmacist Pharmacist 03/07/22 06/15/22 [facility] 330 [facility] [place] [phone] Mago Swift, [facility] Lead Pocket Secretary Assembler Cable Testers Helper - 08/05/21 Clinical documented as of this encounter
--- OUTSIDE RECORDS SUMMARY | 2022-10-21 08:57 | XMS_ITS | Encounter Summary ---
:1980 Author Organization [place] Address [address] [place] [address] Care Team Providers Name Role Phone Aydee Burton EVENT DECORATOR SALES FLOOR TEAM MEMBER Primary Care Provider Aydee Burton EVENT DECORATOR SALES FLOOR TEAM MEMBER Unavailable [phone] Louisa Hood EVENT DECORATOR SALES FLOOR TEAM MEMBER Unavailable [phone] Se Levy COAL SAMPLER Unavailable Unavailable Clari Ruiz [facility] Unavailable [phone] Angel Hannah MD Unavailable Lesly Celaya MD Unavailable Tawana Patel MA Unavailable Unavailable Ramses Mcpherson MD Unavailable [phone] Obdulio Barrera MD Unavailable [phone] Obdulio Barrera MD Unavailable [phone] Marilia Deluna PhD Unavailable Mago Swift DIESEL ENGINE INSPECTOR Unavailable Reason for Referral Med Therapy Management (Routine: Next available opening) - Closed Specialty Diagnoses / Procedures Referred By Contact Refer red To Contact Pharmacist Diagnoses Sleep walking and eating Polypharmacy Aydee Burton APRN CNP [address] [place] [address] Referral ID Status Reason Start Date Expiration Date Visits Requ ested Visits Authorized [id number] Closed 03/01/2022 03/01/2023 1 1 Reason for Visit Reason Comments Asthma Encounter Details Date Type Department Care Team Description 03/01/2022 Office Visit [facility] Aydee Burton Sleep walk ing and eating (Primary Dx); Clinic [facility] ELADIO Mendez CNP Polypharmacy; 4151 [facility] 4151 [facility] jul[facility] air trapping; [address] SOB (shortness of breath); [place], [place] [address] Chest pain, unspecified type; [phone] Bronchospasm; [phone] Encounter for completion of form with patient [...] How often do you attend jainism or quaker services? Never 08/05/2021 Do you [...] at Date Recorded Female 11/09/2021 7:53 PM RELIGIOUS RITUAL SLAUGHTERER COVID-19 Exposure Response Date Recorded In the [...] be sent through Care Everywhere. Bronchospasm (Adult) (Croatian)Pneumococcal Vaccination (Croatian)documented in this encounter Progress Notes Aydee Burton, ELADIO SALES FLOOR TEAM MEMBER - 03/01/2022 9:50 AM CDT Images from [...] Recheck with pulmonology . Aydee Burton APRN CNP [facility] Marta is a 42 year old [...] regularly. Clinic Care Coordination - 02/25/2022 -- [facility] x9 months - Has been waking in [...] work and fell, landing forward on elbows. Pitkin a snap. c/o tinging in left hand, [...] for 4 hours a day by this RETAIL DISTRICT MANAGER. Gave her 2 weeks notice at her [...] Barrera MD 420 [facility] 276 [place] [address] (Wo rk) 10/25/2022 PRE VISIT ENT Charo Burton MD Previsit [address] [place] [address] [phone] (Wo rk) 10/25/2022 Office Visit Charo Carter MD [address] [place] [address] [phone] (Wo rk) 10/25/2022 Office Visit ENT Provider, Ent Dysphonia Insurance Writer 10/25/2022 Virtual Visit Pain & Palliative Care [place] [address] [place], [place] [address] 10/28/2022 Appointment Speech Therapy Anabel Chew, CHIN STRAP CUTTER [address] [place], [place] [address] (Wo rk) 11/17/2022 Appointment Speech Therapy Anabel Chew, CHIN STRAP CUTTER [address] [place], [place] 8[address]25 (Wo rk) 12/01/2022 Office Visit Pain & [place] [address] [place], [place] [address] (Wo rk) 12/23/2022 Office Visit Neurology Colby Yeung MD [address] [place] [address] (Wo rk) Scheduled Referrals Name Type [...] for completion of form with oriana montejo documented in this encounter Additional Health Concerns Assessment Noted Time PHQ-9 Depression Total Score: 20 03/02/2022 7:02 AM CD T documented as of this encounter Care Teams Stock Chaser Relationship Specialty Start Date End Date Aydee Burton, PCP - General Nurse Practitioner - 05/17/21 EVENT DECORATOR SALES FLOOR TEAM MEMBER Family [address] [place], [place] [phone] Aydee Burton, Assigned PCP 04/28/21 EVENT DECORATOR SALES FLOOR TEAM MEMBER [address] [place] [address] Louisa Hood, Assigned Neuroscience 07/11/21 EVENT DECORATOR SALES FLOOR TEAM MEMBER Provider 500 [place], [place] [phone] Se Levy, Lead Specialty Development Consultant 08/05/21 05/12/22 Clari Francois Pharmacist Pharmacist 08/06/21 06/07/22 [facility] [address] [place], [place] [phone] [place], Assigned Sleep 08/01/21 Angel Turcios, Provider [address] [place], [place] [phone] Lesly Celaya MD Assigned Surgical 09/05/21 [address] Provider [place], [place] [address] Tawana Patel MA [facility] 09/30/21 Worker Ramses Mcpherson Assigned OBGYN 11/07/21 MD Onesimo Provider [address] [place], [place] [address] Obdulio Barrera MD Critical Care 01/24/[address] [address] Obdulio Barrera, Assigned Pulmonology 02/06/22 MD Provider [address] [place] [address] Marilia Deluna, PhD Assigned Behavioral 02/20/22 [address] [facility] Health Provider [place], [place] 6[address] Mago Swift DIESEL ENGINE INSPECTOR Lead Specialty Development Consultant Director Of Teacher Education - 08/05/21 Clinical documented as of this encounter
--- OUTSIDE RECORDS SUMMARY | 2022-10-21 08:57 | XMS_ITS | Encounter Summary ---
:1980 Author Organization [place] Address [address] [place] [address] Care Team Providers Name Role Phone Aydee Burton FIELD SAMPLING TECHNICIAN EXECUTIVE SALES MANAGER Primary Care Provider Aydee Burton FIELD SAMPLING TECHNICIAN EXECUTIVE SALES MANAGER Unavailable [phone] Louisa Hood FIELD SAMPLING TECHNICIAN EXECUTIVE SALES MANAGER Unavailable [phone] Se Levy SOLUTIONS DEVELOPER Unavailable Unavailable Clari Ruiz [facility] Unavailable [phone] Angel Hannah MD Unavailable Lesly Celaya MD Unavailable Tawana Patel MA Unavailable Unavailable Ramses Mcpherson MD Unavailable [phone] Obdulio Barrera MD Unavailable [phone] Obdulio Barrera MD Unavailable [phone] Lesvia Stanley Unavailable Marilia Deluna PhD Unavailable Mago Swift SHELTERED WORKSHOP WORKER Unavailable Reason for Referral Rehab Therapy Cardiac Therapy (Routine: Next available opening) - Authorized Specialty Diagnoses / Procedures Referred By Contact Refer red To Contact CARDIAC REHAB Diagnoses Asthma SOB (shortness of breath) [address] [address] Phone: Referral ID Status Reason Start Date Expiration Date Visits V isits Requested Authorized [id number] Authorized 11/13/2021 11/12/2022 365 365 Reason for Visit Rehab Therapy Cardiac Therapy (Routine: Next available opening) - Authorized Specialty Diagnoses / Procedures Referred By Contact Refer red To Contact CARDIAC REHAB Diagnoses Asthma SOB (shortness of breath) [address] [address] Phone: Referral ID Status Reason Start Date Expiration Date Visits V isits Requested Authorized [id number] Authorized 11/13/2021 11/12/2022 365 365 Encounter Details Date Type Department Care Team Description 03/03/2022 [facility] Obdulio Jason MD [address] [phone] Asthma; Encounter Cardiac and Pulmonary 1, Rh Pulmonary Rehab SOB (shortness of breath) Rehabilitation [address] [place] [address] Social History Tobacco Use Types [...] Date Recorded Female 11/09/2021 7:53 PM WATER SUPPLY ENGINEER COVID-19 Exposure Response Date Recorded In [...] [facility] 276 [place], [place] [phone] (Wo rk) 10/25/2022 PRE VISIT ENT Charo Burton MD Previsit [address] [place], [place] [phone] (Wo rk) 10/25/2022 Office Visit ENT Charo Burton MD [address] [place], [place] [phone] (Wo rk) 10/25/2022 Office Visit ENT Provider, Ent Dysphonia Answering Service Operator 10/25/2022 Virtual Visit Pain & Palliative [place] [address] [place], [place] [address] 10/28/2022 Appointment Speech Therapy Anabel Chew, BELLMAN DRIVER [address] [address]99[address] (Wo rk) 11/17/2022 Appointment Speech Therapy Anabel Chew, BELLMAN DRIVER [address] [phone] (Wo rk) 12/01/2022 Office Visit Pain & [place] [address] [place], [place] [address] (Wo rk) 12/23/2022 Office Visit Neurology Colby Yeung MD [address] [address] (Wo rk) Scheduled Referrals Name Type Priority [...] documented as of this encounter Care Teams Inseamer Relationship Specialty Start Date End Date Aydee Burton, PCP - General Nurse Practitioner - 05/17/21 FIELD SAMPLING TECHNICIAN EXECUTIVE SALES MANAGER Family [address] [place], [place] [address] Aydee Burton, Assigned PCP 04/28/21 FIELD SAMPLING TECHNICIAN EXECUTIVE SALES MANAGER [address] [place], [place] 9[address] Louisa Hood, Assigned Neuroscience 07/11/21 FIELD SAMPLING TECHNICIAN EXECUTIVE SALES MANAGER Provider [address] [place] [address] [phone] Se Levy, Lead Linux Vmware Administrator 08/05/21 05/12/22 Clari Francois Pharmacist Pharmacist 08/06/21 06/07/22 Jocelyn [facility] [address] 5425[address] [place], Assigned Sleep 08/01/21 Angel Turcios, Provider [address] [place], [place] [address] Lesly Celaya MD Assigned Surgical 09/05/21 [address] [facility] Provider [place], [place] 4[address] Tawana Patel MA [facility] 09/30/21 Worker Ramses Mcpherson Assigned OBGYN 11/07/21 MD Onesimo Provider [address] [place], [place] 4[address] Obdulio Barrera MD Critical Care 01/24/[address] [place] [address] 276 [place], [place] [address] Obdulio Barrera, Assigned Pulmonology 02/06/22 [place] Provider [address] [place] [address] 492565 Lesvia Stanley, GHADA Cardiac Rehabilitation 03/03/22 03/03/23 [facility] Therapist [address] [place] [address] Marilia Deluna, PhD Assigned Behavioral 02/20/22 [address] [facility] Provider [place], [place] [address] Mago Swift [facility] Lead Linux Vmware Administrator Senior Service Technician - 08/05/21 Clinical documented as of this encounter
--- OUTSIDE RECORDS SUMMARY | 2022-10-21 08:57 | XMS_ITS | Encounter Summary ---
:1980 Author Organization [place] Address [address] [place] [address] Care Team Providers Name Role Phone Aydee Burton MARBLE HELPER ELECTRICAL PLUMBING SUPERVISOR Primary Care Provider Aydee Burton MARBLE HELPER ELECTRICAL PLUMBING SUPERVISOR Unavailable [phone] Louisa Hood MARBLE HELPER ELECTRICAL PLUMBING SUPERVISOR Unavailable [phone] Se Levy EMBOSSER APPRENTICE Unavailable Unavailable Clari Ruiz [facility] Unavailable [phone] Angel Hannah MD Unavailable Lesly Celaya MD Unavailable Tawana Patel MA Unavailable Unavailable Ramses Mcpherson MD Unavailable [phone] Obdulio Barrera MD Unavailable [phone] Obdulio Barrera MD Unavailable [phone] Marilia Deluna PhD Unavailable Mago Swift COVERING MACHINE TENDER Unavailable Encounter Details Date Type Department Care [...] How often do you attend muslim or uatsdin services? 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/2021 7:53 PM PATIENT TRANSPORTATION DRIVER COVID-19 Exposure Response Date Recorded In the last 10 days, have you been in contact with No / Unsu re 02/24/2022 1:26 PM CDT someone who was confirmed or suspected to have Coronavirus/COVID-19? documented as of this encounter Plan of Treatment Upcoming Encounters Date Type Specialty Care Team Description 10/21/2022 Office Visit Pulmonology Obdulio Barrera MD [address] [address] (Wo rk) 10/25/2022 PRE VISIT ENT Charo Burton MD Previsit [address] [place] [address] (Wo rk) 10/25/2022 Office Visit ENT Charo Burton MD 909 [place], [place] 0[address]15 (Wo rk) 10/25/2022 Office Visit ENT Provider, Ent Dysphonia Job Recruiter 10/25/2022 Virtual Visit Pain & Palliative Care [place]una[place] [address] [place], [place] [address] 10/28/2022 Appointment Speech Therapy Anabel Chew, FURNITURE SPRAYER [address] [place], [place] [address] (Wo rk) 11/17/2022 Appointment Speech Therapy Anabel Chew, FURNITURE SPRAYER [address] [place], [place] [address]25 (Wo rk) 12/01/2022 Office Visit Pain & [place] [address] [place], [place] [address] (Wo rk) 12/23/2022 Office Visit Neurology Colby Yeung MD [address] [place] [address] (Wo rk) documented as of this encounter Visit Diagnoses Not on filedocumented in this encounter Additional Health Concerns Assessment Noted Time PHQ-9 Depression Total Score: 15 2022 7:02 AM CD T documented as of this encounter Care Teams Repairer Kiln Car Relationship Specialty Start Date End Date Aydee Burton, PCP - General Nurse Practitioner - 05/17/21 MARBLE HELPER [facility] [address] [place] [address] Aydee Burton, Assigned PCP 04/28/21 MARBLE HELPER ELECTRICAL PLUMBING SUPERVISOR [address] [place], [place] 114462 Louisa Hood, Assigned Neuroscience 07/11/21 MARBLE HELPER ELECTRICAL PLUMBING SUPERVISOR Provider 500 [place] [address] Se Levy, Lead Billing Assistant 08/05/21 05/12/22 EMBOSSER APPRENTICEClari Ordonez Pharmacist Pharmacist 08/06/21 06/07/22 Jocelyn, [facility] [address] [place], [place] [address] [place], Assigned Sleep 08/01/21 Angel Turcios, Provider [address] [place], [place] [address] Lesly Celaya MD Assigned Surgical 09/05/21 [address] [facility] Provider [place], [place] [address] Tawana Patel MA [facility] 09/30/21 Worker Ramses Mcpherson Assigned OBGYN 11/07/21 MD Onesimo Provider [address] [place], [place] [address] Obdulio Barrera MD Critical Care 01/24/[address] [place] [address] 736935 Obdulio Barrera, Assigned Pulmonology 02/06/[address] [phone] Marilia Deluna, PhD Assigned Behavioral 02/20/22 [address] [facility] Provider [place], [place] [phone] Mago Swift [facility] Lead Billing Assistant Saddle Cutter - 08/05/21 Clinical documented as of this encounter
--- OUTSIDE RECORDS SUMMARY | 2022-10-21 08:57 | XMS_ITS | Encounter Summary ---
:1980 Author Organization [facility] Address [address] [place] [address] Care Team Providers Name Role Phone Aydee Burton FUND DIRECTOR SUPERVISOR BIT AND SHANK DEPARTMENT Primary Care Provider Aydee Burton FUND DIRECTOR SUPERVISOR BIT AND SHANK DEPARTMENT Unavailable [phone] Louisa Hood FUND DIRECTOR SUPERVISOR BIT AND SHANK DEPARTMENT Unavailable [phone] Se Levy [facility] Unavailable Unavailable Clari Ruiz [facility] Unavailable [phone] Angel Hannah MD Unavailable Lesly Celaya MD Unavailable Tawana Patel MA Unavailable Unavailable Ramses Mcpherson MD Unavailable [phone] Obdulio Barrera MD Unavailable Obdulio Barrera MD Unavailable [phone] Lesvia Stanley Unavailable Marilia Deluna PhD Unavailable Niyah Decker [facility] Unavailable Clari Poole [facility] Unavailable Jamison Mago Terri [facility] Unavailable Reason for Referral Consultation (Routine) - Closed Specialty Diagnoses / Procedures Referred By Contact Refer red To Contact Diagnoses SOB (shortness of breath) Leg swelling Discoloration of skin of multiple sites of lower extremity Lory Nunez PA-C [address] [place] [address] [place] [address] Phone: Referral ID Status Reason Start Date Expiration Date Visits Requ ested Visits Authorized [id number] Closed 03/08/2022 03/08/2023 1 1 Reason for Visit Reason Comments Leg Swelling Encounter Details Date Type Department Care Team Description 03/08/2022 Virtual Visit [facility] Lory Nunez SOB (ayana rtness of breath) (Primary Dx); [facility] [place] [facility] Richardson Leg swelling; [address] [place] [address] Discol oration of skin of multiple sites of lower extremity; [address] Severe episode of recurrent major depres sive disorder, without psychotic features (H) [place] [address] [phone] (Wo rk) Social History Tobacco Use Types [...] How often do you attend mormonism or druze services? Never 08/05/2021 Do you [...] at Date Recorded Female 11/09/2021 7:53 PM HEMMER AUTOMATIC COVID-19 Exposure Response Date Recorded In [...] dropped, the invitation should be resent by: [phone] Will anyone else be joining your video [...] (on 03/08/2022) for ADS. Lory Nunez PA-C [facility] Marta is a 42 year old who presents for the following health issues HPI ?? Patient reports ankle swelling that started , 03/03/2022. There is some pitting that she [...] (pt. Location): Home Distant Location (provider location): [facility] Platform used for Video Visit: Mango DSP documented in this encounter Plan of Treatment Upcoming Encounters Date Type Specialty Care Team Description 10/21/2022 Office Visit Pulmonology Obdulio Barrera MD [address] [place] [address] [phone] (Wo rk) 10/25/2022 PRE VISIT ENT Charo Burton MD Previsit [address] [place] [address] [phone] (Wo rk) 10/25/2022 Office Visit Charo Carter MD [address] [place] [address] [phone] (Wo rk) 10/25/2022 Office Visit ENT Provider, Ent Dysphonia Filling Station Equipment Mechanic 10/25/2022 Virtual Visit Pain & Palliative Care Marilia Deluna, PhD [address] [place], [place] [address] 10/28/2022 Appointment Speech Therapy Anabel Chew, CELINE [address] [address] (Wo rk) 11/17/2022 Appointment Speech Therapy Anabel Chew SLP [address] [address] (Wo rk) 12/01/2022 Office Visit Pain & [place] [address] [place], [place] [address] (Wo rk) 12/23/2022 Office Visit Neurology Colby Yeung MD [address] [address] (Wo rk) Scheduled Referrals Name Type [...] depres sive disorder, without psychotic features (H) documented in this encounter Additional Health Concerns Assessment Noted Time PHQ-9 Depression Total Score: 20 03/02/2022 7:02 AM CD T documented as of this encounter Care Teams Head Stock Operator Relationship Specialty Start Date End Date Aydee Burton, PCP - General Nurse Practitioner - 05/17/21 FUND DIRECTOR SUPERVISOR BIT AND SHANK DEPARTMENT Family [address] [place] [address]26102 Aydee Burton, Assigned PCP 04/28/21 FUND DIRECTOR SUPERVISOR BIT AND SHANK DEPARTMENT [address] [place] [address] 120692 Louisa Hood, Assigned Neuroscience 07/11/21 FUND DIRECTOR SUPERVISOR BIT AND SHANK DEPARTMENT Provider 500 [place], [place] 3812[address] Se Levy, Lead Medical Technician 08/05/21 05/12/22 Clari Francois Pharmacist Pharmacist 08/06/21 06/07/22 Jocelyn [facility] [address] [place], [place] [address] [place], Assigned Sleep 08/01/21 Angel Turcios, Provider [address] [place], [place] [address] Lesly Celaya MD Assigned Surgical 09/05/21 [address] [facility] Provider [place], [place] [address] Tawana Patel MA [facility] 09/30/21 Worker Ramses Mcpherson Assigned OBGYN 11/07/21 MD Onesimo Provider [address] [place], [place] [phone] Obdulio Barrera MD Critical Care 01/24/22 420 [facility] 276 [place], [place] [address]385 Obdulio Barrera, Assigned Pulmonology 02/06/22 MD Provider [address] [place] [address] 276 [place], [place] [phone] Lesvia Stanley EP Cardiac Rehabilitation 03/03/22 03/03/23 [facility] Therapist [address] [facility] [place] [address] Marilia Deluna, PhD Assigned Behavioral 02/20/22 [address] [facility] Health Provider [place], [place] [phone] Niyah Decker, [facility] Pharmacist Pharmacist 03/07/22 420 [facility] 812 [place], [place] [address] Clari Poole, Pharmacist Pharmacist 03/07/22 06/15/22 [facility] [address] [facility] [place] [address] Mago Swift, [facility] Lead Medical Technician Complex Manager - 08/05/21 Clinical documented as of this encounter
--- OUTSIDE RECORDS SUMMARY | 2022-10-21 08:57 | XMS_ITS | Encounter Summary ---
:1980 Author Organization [place] Address [address] [place] [address] Care Team Providers Name Role Phone Aydee Burton PSYCHOLOGICAL TESTS SALES AGENT TRANSLATOR INTERPRETER Primary Care Provider Aydee Burton PSYCHOLOGICAL TESTS SALES AGENT TRANSLATOR INTERPRETER Unavailable [phone] Louisa Hood PSYCHOLOGICAL TESTS SALES AGENT TRANSLATOR INTERPRETER Unavailable [phone] Se Levy [facility] Unavailable Unavailable Clari Ruiz [facility] Unavailable [phone] Angel Hannah MD Unavailable Lesly Celaya MD Unavailable Tawana Patel MA Unavailable Unavailable Ramses Mcpherson MD Unavailable [phone] Obdulio Barrera MD Unavailable [phone] Obdulio Barrera MD Unavailable [phone] Lesvia Stanley Unavailable Marilia Deluna PhD Unavailable Niyah Decker [facility] Unavailable Clari Poole [facility] Unavailable JamisonMago [facility] Unavailable Encounter Details Date Type Department Care Team Description 03/07/[address] [facility] Aydee Burton APRN [facility] 4[address] [facility] et S. E. [address]151 [place], [place] [address] [place] [address] [phone] (Wo rk) Social History Tobacco Use Types [...] often do you attend oriental orthodox or caodaism services? Never 08/05/2021 Do you [...] at Date Recorded Female 11/09/2021 7:53 PM PRIVATE ADVISOR COVID-19 Exposure Response Date Recorded In the last 10 days, have you been in contact with No / Unsu re 03/07/2022 9:39 AM CDT someone who was confirmed or suspected to have Coronavirus/COVID-19? documented as of this encounter Miscellaneous Notes Telephone Encounter - Jazmyn Alatorre RN - 03/08/2022 12:58 PM CDT Prescription approved per [facility] Refill Protocol. Jazmyn Griffiths RN, BSN documented in this encounter Plan of Treatment Upcoming Encounters Date Type Specialty Care Team Description 10/21/2022 Office Visit Pulmonology Obdulio Barrera MD [address] [place] [address] [phone] (Wo rk) 10/25/2022 PRE VISIT ENT Charo Burton MD Previsit [address] [place] [address] [phone] (Wo rk) 10/25/2022 Office Visit Charo Carter MD [address] [place] [address] (Wo rk) 10/25/2022 Office Visit ENT Provider, Jeannette Ent Dysphonia Asphalt Screed Operator 10/25/2022 Virtual Visit Pain & Palliative Care [place], [place] [address] [place], [place] [address] 10/28/2022 Appointment Speech Therapy Anabel Chew, SNOW PLOW OPERATOR [address] [address] (Wo rk) 11/17/2022 Appointment Speech Therapy Anabel Chew, SNOW PLOW OPERATOR [address] 236335 (Wo rk) 12/01/2022 Office Visit Pain & [place] [address] [place], [place] [address] (Wo rk) 12/23/2022 Office Visit Neurology Colby Yeung MD [address] [place] [phone] (Wo rk) documented as of this encounter Visit Diagnoses Diagnosis S/P laparoscopic hysterectomy 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 documented in this encounter Additional Health Concerns Assessment Noted Time PHQ-9 Depression Total Score: 03/02/2022 7:02 AM CD T documented as of this encounter Care Teams Bee Keeper Relationship Specialty Start Date End Date Aydee Burton, PCP - General Nurse Practitioner - 05/17/21 PSYCHOLOGICAL TESTS SALES AGENT TRANSLATOR INTERPRETER Family [address] [place] [address] Aydee Burton, Assigned PCP 04/28/21 PSYCHOLOGICAL TESTS SALES AGENT TRANSLATOR INTERPRETER 4151 [place], [place] [phone] Louisa Hood, Assigned Neuroscience 07/11/21 PSYCHOLOGICAL TESTS SALES AGENT TRANSLATOR INTERPRETER Provider 500 [place], [place] [phone] Se Levy, Lead Payment Analyst 08/05/21 05/12/22 AIR QUALITY MANAGERClari Ordonez Pharmacist Pharmacist 08/06/21 06/07/22 Jocelyn [facility] [address] [place], [place] [phone] [place], Assigned Sleep 08/01/21 Angel Turcios, Provider [address] [place] [address] Lesly Celaya MD Assigned Surgical 09/05/[address] [place] [place] [address] Tawana Patel MA [facility] 09/30/21 Worker Ramses Mcpherson Assigned OBGYN 11/07/21 MD Onesimo Provider [address] [place] [address] Obdulio Barrera MD Critical Care 01/24/22 MD 420 [facility] 276 [place], [place] [address] Obdulio Barrera, Assigned Pulmonology 02/06/22 MD Provider [address] 9254[address] Lesvia Stanley EP Cardiac Rehabilitation 03/03/22 03/03/23 [facility] Therapist [address] [place], [place] [address] Marilia Deluna, PhD Assigned Behavioral 02/20/22 [address] [facility] [place] [address] Niyah Decker, [facility] Pharmacist Pharmacist 03/07/22 420 [facility] 812 [place] [address] Clari Poole, Pharmacist Pharmacist 03/07/22 06/15/22 [facility] [address] [facility] [place] [address] Mago Swift, [facility] Lead Payment Analyst Supervisor Dental Laboratory - 08/05/21 Clinical documented as of this encounter
--- OUTSIDE RECORDS SUMMARY | 2022-10-21 08:57 | XMS_ITS | Encounter Summary ---
:1980 Author Organization [place] Address [address] [place] [address] Care Team Providers Name Role Phone Aydee Burton COLORING ROOM WORKER GREEN TIRE INSPECTOR Primary Care Provider Aydee Burton COLORING ROOM WORKER GREEN TIRE INSPECTOR Unavailable [phone] Louisa Hood COLORING ROOM WORKER GREEN TIRE INSPECTOR Unavailable [phone] Se Levy MANAGER RECRUITING Unavailable Unavailable Clari Ruiz [facility] Unavailable [phone] Angel Hannah MD Unavailable Lesly Celaya MD Unavailable Tawana Patel MA Unavailable Unavailable Ramses Mcpherson MD Unavailable [phone] Obdulio Barrera MD Unavailable [phone] Obdulio Barrera MD Unavailable [phone] Marilia Deluna PhD Unavailable Mago Swift BOILING OFF WINDER Unavailable Encounter Details Date Type Department Care [...] How often do you attend mandaeism or methodist services? 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/2021 7:53 PM SENIOR BACKUP ADMINISTRATOR COVID-19 Exposure Response Date Recorded In the last 10 days, have you been in contact with No / Unsu re 02/24/2022 1:26 PM CDT someone who was confirmed or suspected to have Coronavirus/COVID-19? documented as of this encounter Plan of Treatment Upcoming Encounters Date Type Specialty Care Team Description 10/21/2022 Office Visit Pulmonology Obdulio Barrera MD [address] [address] (Wo rk) 10/25/2022 PRE VISIT ENT Charo Burton MD Previsit [address] [place] [address] (Wo rk) 10/25/2022 Office Visit ENT Charo Burton MD 909 [place], [place] [address]305 (Wo rk) 10/25/2022 Office Visit ENT Provider, Ent Dysphonia Hull Sorter 10/25/2022 Virtual Visit Pain & Palliative Care [place] [address] [place], [place] [address] 10/28/2022 Appointment Speech Therapy Anabel Chew, SUCTION PLATE CARRIER CLEANER [address] [place], [place] [address]385 (Wo rk) 11/17/2022 Appointment Speech Therapy Anabel Chew, SUCTION PLATE CARRIER CLEANER [address] [place], [place] [address]95 (Wo rk) 12/01/2022 Office Visit Pain & [place] [address] [place], [place] [address] (Wo rk) 12/23/2022 Office Visit Neurology Colby Yeung MD [address] [place] 311655 (Wo rk) documented as of this encounter Visit Diagnoses Not on filedocumented in this encounter Additional Health Concerns Assessment Noted Time PHQ-9 Depression Total Score: 15 2022 7:02 AM CD T documented as of this encounter Care Teams Cnc Field Service Engineer Relationship Specialty Start Date End Date Aydee Burton, PCP - General Nurse Practitioner - 05/17/21 COLORING ROOM WORKER [facility] [address] [place] [address] Aydee Burton, Assigned PCP 04/28/21 COLORING ROOM WORKER GREEN TIRE INSPECTOR 4151 [place], [place] 17[address] Louisa Hood, Assigned Neuroscience 07/11/21 COLORING ROOM WORKER GREEN TIRE INSPECTOR Provider 500 [place] [address] Se Levy, Lead Fleet Director 08/05/21 05/12/22 MANAGER RECRUITINGClari Ordonez Pharmacist Pharmacist 08/06/21 06/07/22 Jocelyn, [facility] [address] [place], [place] [address] [place], Assigned Sleep 08/01/21 Angel Turcios, Provider [address] [place], [place] [address] Lesly Celaya MD Assigned Surgical 09/05/21 [address] [facility] Provider [place], [place] [address] Tawana Patel MA [facility] 09/30/21 Worker Ramses Mcpherson Assigned OBGYN 11/07/21 MD Onesimo Provider [address] [place], [place] [address] Obdulio Barrera MD Critical Care 01/24/[address] [place] [address] 804245 Obdulio Barrera, Assigned Pulmonology 02/06/[address] [phone] Marilia Deluna, PhD Assigned Behavioral 02/20/22 [address] [facility] Provider [place], [place] [phone] Mago Swift [facility] Lead Fleet Director Chief Operations Officer - 08/05/21 Clinical documented as of this encounter
--- OUTSIDE RECORDS SUMMARY | 2022-10-21 08:57 | XMS_ITS | Encounter Summary ---
:1980 Author Organization [place] Address [address] [place] [address] Care Team Providers Name Role Phone Aydee Burton UTILIZATION MANAGEMENT NURSE FOREPART RASPER Primary Care Provider [phone] Aydee Burton UTILIZATION MANAGEMENT NURSE FOREPART RASPER Unavailable [phone] Louisa Hood UTILIZATION MANAGEMENT NURSE FOREPART RASPER Unavailable [phone] Se Levy TOWER HOIST OPERATOR Unavailable Unavailable Clari Ruiz [facility] Unavailable [phone] Angel Hannah MD Unavailable Lesly Celaya MD Unavailable Tawana Patel MA Unavailable Unavailable Ramses Mcpherson MD Unavailable [phone] Obdulio Barrera MD Unavailable [phone] Obdulio Barrera MD Unavailable Lesvia Stanley Unavailable Marilia Deluna PhD Unavailable Mago Swift FIGURINE MAKER Unavailable Encounter Details Date Type Department [...] How often do you attend spiritism or buddhism services? Never 08/05/2021 Do you [...] at Date Recorded Female 11/09/2021 7:53 PM GLOBAL MANAGER COVID-19 Exposure Response Date Recorded In the last 10 days, have you been in contact with No / Unsu re 03/03/2022 3:55 PM CDT someone who was confirmed or suspected to have Coronavirus/COVID-19? documented as of this encounter Plan of Treatment Upcoming Encounters Date Type Specialty Care Team Description 10/21/2022 Office Visit Pulmonology Obdulio Barrera MD [address] [place] [address] 184645 (Wo rk) 10/25/2022 PRE VISIT ENT Charo Burton MD Previsit [address] [place] [address] [phone] (Wo rk) 10/25/2022 Office Visit ENT Charo Burton MD [address] [place] [address] (Wo rk) 10/25/2022 Office Visit ENT Provider, Ent Dysphonia Sales Agent Insurance 10/25/2022 Virtual Visit Pain & Palliative Care [place] [address] [place], [place] [address] 10/28/2022 Appointment Speech Therapy Anabel Chew, LICENSED MASTER SOCIAL WORKER [address] [address] (Wo rk) 11/17/2022 Appointment Speech Therapy Anabel Chew, LICENSED MASTER SOCIAL WORKER [address] [address] (Wo rk) 12/01/2022 Office Visit [place] [address] [place], [place] [address] (Wo rk) 12/23/2022 Office Visit Neurology Colby Yeung MD [address] [place] 366235 (Wo rk) documented as of this encounter Visit Diagnoses Not on filedocumented in this encounter Additional Health Concerns Assessment Noted Time PHQ-9 Depression Total Score: 20 03/02/2022 7:02 AM CD T documented as of this encounter Care Teams Reporting Specialist Relationship Specialty Start Date End Date Aydee Burton, PCP - General Nurse Practitioner - 05/17/21 UTILIZATION MANAGEMENT NURSE FOREPART RASPER Family [address] [place] [address] 676692 Aydee Burton, Assigned PCP 04/28/21 UTILIZATION MANAGEMENT NURSE FOREPART RASPER [address]151 [place], [place] 05[address] [place] Louisa Recinos, Assigned Neuroscience 07/11/21 UTILIZATION MANAGEMENT NURSE FOREPART RASPER Provider [address] [place], [place] [phone] Se Levy, Lead Brokerage Coordinator 08/05/21 05/12/22 TOWER HOIST OPERATORClari Ordonez Pharmacist Pharmacist 08/06/21 [facility]/07/[facility] [address] [place] [address] [place], Assigned Sleep 08/01/21 Angel Turcios, Provider [address] [place] [address] Lesly Celaya MD Assigned Surgical 09/05/21 [address] [place] Provider [place], [place] [phone] Tawana Patel [facility] 09/30/21 Worker Ramses Mcpherson Assigned OBGYN 11/07/21 MD Onesimo Provider [address] [place], [place] [phone] Obdulio Barrera MD Critical Care 01/24/[address] [address] Obdulio Barrera, Assigned Pulmonology 02/06/[address] 6447[address] Lesvia Stanley EP Cardiac Rehabilitation 03/03/22 03/03/23 [facility] Therapist [address] [address] Marilia Deluna, PhD Assigned Behavioral 02/20/22 [address] [facility] Health Provider [place] 593727 Mago Swift, [facility] Lead Brokerage Coordinator Flyer Maker - 08/05/21 Clinical documented as of this encounter
--- OUTSIDE RECORDS SUMMARY | 2022-10-21 08:57 | XMS_ITS | Encounter Summary ---
:1980 Author Organization [facility] Address [address] [place] [place] [address] Care Team Providers Name Role Phone Aydee Burton BLOCKER HAND PROGRESSIVE ASSEMBLER AND FITTER Primary Care Provider [phone] Aydee Burton BLOCKER HAND PROGRESSIVE ASSEMBLER AND FITTER Unavailable [phone] Louisa Hood BLOCKER HAND PROGRESSIVE ASSEMBLER AND FITTER Unavailable [phone] Se Levy [facility] Unavailable Unavailable Clari Ruiz [facility] Unavailable [phone] Angel Hannah MD Unavailable Lesly Celaya MD Unavailable Tawana Patel MA Unavailable Unavailable Ramses Mcpherson MD Unavailable [phone] Obdulio Barrera MD Unavailable [phone] Obdulio Barrera MD Unavailable Lesvia Stanley Unavailable Marilia Deluna PhD Unavailable Niyah Decker [facility] Unavailable Clari Poole [facility] Unavailable JamisonMago [facility] Unavailable Encounter Details Date Type [...] How often do you attend jain or spiritism services? Never 08/05/2021 Do you [...] at Date Recorded Female 11/09/2021 7:53 PM AUTO ENGINE MECHANIC COVID-19 Exposure Response Date Recorded In the last 10 days, have you been in contact with No / Unsu re 03/07/2022 9:39 AM CDT someone who was confirmed or suspected to have Coronavirus/COVID-19? documented as of this encounter Plan of Treatment Upcoming Encounters Date Type Specialty Care Team Description 10/21/2022 Office Visit Pulmonology Obdulio Barrera MD 420 [facility] [place] 276 [place], [place] [address] (Wo rk) 10/25/2022 PRE VISIT ENT Charo Burton MD Previsit [address] [place] [address] (Wo rk) 10/25/2022 Office Visit ENT Charo Burton MD [address] [place] [address] [phone] (Wo rk) 10/25/2022 Office Visit ENT Provider, Ent Dysphonia Ice Skating Coach 10/25/2022 Virtual Visit Pain & Palliative [place] [address] [place], [place] [address] 10/28/2022 Appointment Speech Therapy Anabel Chew, LEAD SYSTEMS ARCHITECT [address] [place], [place] [address] (Wo rk) 11/17/2022 Appointment Speech Therapy Anabel Chew, LEAD SYSTEMS ARCHITECT [address] [place], [place] [phone] (Wo rk) 12/01/2022 Office Visit Pain [place] [address] [place], [place] [address] (Wo rk) 12/23/2022 Office Visit Neurology Colby Yeung MD [address] [place] [address] (Wo rk) documented as of this encounter Visit Diagnoses Not on filedocumented in this encounter Additional Health Concerns Assessment Noted Time PHQ-9 Depression Total Score: 20 03/02/2022 7:02 AM CD T documented as of this encounter Care Teams Field Engineer Relationship Specialty Start Date End Date Aydee Burton, PCP - General Nurse Practitioner - 05/17/21 BLOCKER HAND PROGRESSIVE ASSEMBLER AND FITTER Family [address] [place], [place] [phone] Aydee Burton, Assigned PCP 04/28/21 BLOCKER HAND PROGRESSIVE ASSEMBLER AND FITTER [address] [place], [place] [phone] Louisa Hood, Assigned Neuroscience 07/11/21 BLOCKER HAND PROGRESSIVE ASSEMBLER AND FITTER Provider 500 [place], [place] [phone] Se Levy, Lead Tax Services Specialist 08/05/21 05/12/22 Clari Francois Pharmacist Pharmacist 08/06/21 06/07/22 [facility] [address] [place], [place] [phone] [place], Assigned Sleep 08/01/21 Angel Turcios, Provider [address] [place], [place] [address] Lesly Celaya MD Assigned Surgical 09/05/21 [address] Provider [place], [place] [phone] Tawana Patel MA [facility] Health 09/30/21 Worker Ramses Mcpherson Assigned OBGYN 11/07/21 MD Onesimo Provider [address] [place], [place] [phone] Obdulio Barrera MD Critical Care 01/24/[address] [place] [phone] Obdulio Barrera, Assigned Pulmonology 02/06/22 MD Provider [address] [place] [address] [phone] Lesvia Stanley, GHADA Cardiac Rehabilitation 03/03/22 03/03/23 [facility] Therapist [address] [phone] Marilia Deluna, PhD Assigned Behavioral 02/20/22 [address] [facility] Health Provider [place], [place] [phone] Niyah Decker, [facility] Pharmacist Pharmacist 03/07/22 420 [facility] 812 [place], [place] [address] Clari Poole, Pharmacist Pharmacist 03/07/22 06/15/22 [facility] [address] [address] [place] [phone] Mago Swift, [facility] Lead Tax Services Specialist Delinquent Notice Machine Operator - 08/05/21 Clinical documented as of this encounter
--- OUTSIDE RECORDS SUMMARY | 2022-10-21 08:57 | XMS_ITS | Encounter Summary ---
:1980 Author Organization [facility] Address [address] [place] [address] Care Team Providers Name Role Phone Aydee Burton GUIDEMAN PLUMBING HARDWARE ASSEMBLER Primary Care Provider [phone] Aydee Burton GUIDEMAN PLUMBING HARDWARE ASSEMBLER Unavailable [phone] Louisa Hood GUIDEMAN PLUMBING HARDWARE ASSEMBLER Unavailable [phone] Se Levy MIXING TANK OPERATOR Unavailable Unavailable Clari Ruiz [facility] Unavailable [phone] Angel Hannah MD Unavailable Lesly Celaya MD Unavailable Tawana Patel MA Unavailable Unavailable Ramses Mcpherson MD Unavailable [phone] Obdulio Barrera MD Unavailable [phone] Obdulio Barrera MD Unavailable [phone] Marilia Deluna PhD Unavailable Mago Swift VICE PRESIDENT BIOSTATISTICS Unavailable Encounter Details Date Type Department Care [...] How often do you attend adventist or voodoo services? Never 08/05/2021 Do you [...] at Date Recorded Female 11/09/2021 7:53 PM HEALTHCARE ASSOCIATE COVID-19 Exposure Response Date Recorded In the last 10 days, have you been in contact with No / Unsu re 03/01/2022 9:33 AM CDT someone who was confirmed or suspected to have Coronavirus/COVID-19? documented as of this encounter Plan of Treatment Upcoming Encounters Date Type Specialty Care Team Description 10/21/2022 Office Visit Pulmonology Obdulio Barrera MD [address] [address] (Wo rk) 10/25/2022 PRE VISIT ENT Charo Burton MD Previsit [address] [place] [phone] (Wo rk) 10/25/2022 Office Visit ENT Charo Burton MD 909 [place], [place] [address] (Wo rk) 10/25/2022 Office Visit ENT Provider, Ent Dysphonia Motors Assembler 10/25/2022 Virtual Visit Pain & Palliative [place] [address] [place], [place] [address] 10/28/2022 Appointment Speech Therapy Anabel Chew, FOOD TRADES ASSISTANTS [address] [place], [place] [address] (Wo rk) 11/17/2022 Appointment Speech Therapy Anaebl Chew, FOOD TRADES ASSISTANTS [address] [place], [place] [address] (Wo rk) 12/01/2022 Office Visit Pain & [place] [address] [place], [place] [address] (Wo rk) 12/23/2022 Office Visit Neurology Colby Yeung MD [address] [place] [address] (Wo rk) documented as of this encounter Visit Diagnoses Not on filedocumented in this encounter Additional Health Concerns Assessment Noted Time PHQ-9 Depression Total Score: 20 03/02/2022 7:02 AM CD T documented as of this encounter Care Teams Healthcare Specialist Relationship Specialty Start Date End Date Aydee Burton, PCP - General Nurse Practitioner - 05/17/21 GUIDEMAN [facility] [address] [place] [address] Aydee Burton, Assigned PCP 04/28/21 GUIDEMAN PLUMBING HARDWARE ASSEMBLER [address] [place], [place] [address] Louisa Hood, Assigned Neuroscience 07/11/21 GUIDEMAN PLUMBING HARDWARE ASSEMBLER Provider 500 [place] [address] Se Levy, Lead Biological Technician 08/05/21 05/12/22 MIXING TANK OPERATORClari Ordonez Pharmacist Pharmacist 08/06/21 06/07/22 Jocelyn, [facility] [address] [place], [place] [address] [place], Assigned Sleep 08/01/21 Angel Turcios, Provider [address] [place], [place] [address] Lesly Celaya MD Assigned Surgical 09/05/21 [address] [facility] Provider [place], [place] [address] Tawana Patel MA [facility] 09/30/21 Worker Ramses Mcpherson Assigned OBGYN 11/07/21 MD Onesimo Provider [address] [place], [place] [address] Obdulio Barrera MD Critical Care 01/24/[address] [place] [address] Obdulio Barrera, Assigned Pulmonology 02/06/[address] [phone] Marilia Deluna, PhD Assigned Behavioral 02/20/22 [address] [facility] Provider [place], [place] [phone] aMgo Swift [facility] Lead Biological Technician Transformer Mechanic - 08/05/21 Clinical documented as of this encounter
--- OUTSIDE RECORDS SUMMARY | 2022-10-21 08:58 | XMS_ITS | Encounter Summary ---
:1980 Author Organization [place] Address [address] [place] [address] Care Team Providers Name Role Phone Aydee Burton GUEST ASSOCIATE EGG CANDLER Primary Care Provider Aydee Burton GUEST ASSOCIATE EGG CANDLER Unavailable [phone] Louisa Hood GUEST ASSOCIATE EGG CANDLER Unavailable [phone] Se Levy TROUBLE CLERK Unavailable Unavailable Clari Ruiz [facility] Unavailable [phone] Angel Hannah MD Unavailable Lesly Celaya MD Unavailable Tawana Patel MA Unavailable Unavailable Ramses Mcpherson MD Unavailable [phone] Obdulio Barrera MD Unavailable [phone] Obdulio Barrera MD Unavailable [phone] Mago Swift NURSE COORDINATOR Unavailable Encounter Details Date Type Department Care [...] How often do you attend confucianism or protestant services? Never 08/05/2021 Do you [...] at Date Recorded Female 11/09/2021 7:53 PM COURTESY BOOTH CASHIER COVID-19 Exposure Response Date Recorded In the last month, have you been in contact with No / Unsure 02/18/2022 6:44 PM CDT someone who was confirmed or suspected to have Coronavirus / COVID-19? documented as of this encounter Plan of Treatment Upcoming Encounters Date Type Specialty Care Team Description 10/21/2022 Office Visit Pulmonology Obdulio Barrera MD [address] [address] (Wo rk) 10/25/2022 PRE VISIT ENT Charo Burton MD Previsit [address] [place] [address] (Estefanía rk) 10/25/2022 Office Visit ENT Charo Burton MD 909 [place], [place] [address] (Wo rk) 10/25/2022 Office Visit ENT Provider, Ent Dysphonia Doll Wig Maker 10/25/2022 Virtual Visit Pain & [place]iative [place] [address] [place], [place] [address] 10/28/2022 Appointment Speech Therapy Anabel Chew, SANITARY CHEMIST [address] [phone] (Wo rk) 11/17/2022 Appointment Speech Therapy Anabel Chew, SANITARY CHEMIST [address] [address] (Wo rk) 12/01/2022 Office Visit Pain & [place] [address] [place], [place] [address] (Wo rk) 12/23/2022 Office Visit Neurology Colby Yeung MD [address] [place] [phone] (Wo rk) documented as of this encounter Visit Diagnoses Not on filedocumented in this encounter Additional Health Concerns Assessment Noted Time PHQ-9 Depression Total Score: 15 2022 7:02 AM CD T documented as of this encounter Care Teams Director Distribution Relationship Specialty Start Date End Date Aydee Burton, PCP - General Nurse Practitioner - 05/17/21 GUEST ASSOCIATE EGG CANDLER Family [address] [place] [phone] Aydee Burton, Assigned PCP 04/28/21 GUEST ASSOCIATE [address] [address] ErwinLouisa, Assigned Neuroscience 07/11/21 GUEST ASSOCIATE EGG CANDLER Provider 500 [place], [place] [phone] Se Levy, Lead Modeling And Simulation Analyst 08/05/21 05/12/22 TROUBLE CLERK Clari Ruiz Pharmacist Pharmacist 08/06/21 06/07/22 [facility] [address] [place], [place] [phone] [place], Assigned Sleep 08/01/21 Angel Turcios, Provider [address] [place], [place] [address] Lesly Celaya MD Assigned Surgical 09/05/21 [address] Provider [place], [place] [address] Tawana Patel MA [facility] 09/30/21 Worker Ramses Mcpherson Assigned OBGYN 11/07/21 MD Onesimo Provider [address] [place], [place] [address] Obdulio Barrera MD Critical Care 01/24/[address] [place] [address] Obdulio Barrera, Assigned Pulmonology 02/06/22 Provider [address] [address] Mago Swift, [facility] Lead Modeling And Simulation Analyst Yard Operator - 08/05/21 Clinical documented as of this encounter
--- OUTSIDE RECORDS SUMMARY | 2022-10-21 08:58 | XMS_ITS | Encounter Summary ---
:1980 Author Organization [facility] Address [address] [place] [address] Care Team Providers Name Role Phone Aydee Burton COMMERCIAL ANALYST CONTROL SYSTEMS DESIGNER Primary Care Provider Aydee Burton COMMERCIAL ANALYST CONTROL SYSTEMS DESIGNER Unavailable [phone] Louisa Hood COMMERCIAL ANALYST CONTROL SYSTEMS DESIGNER Unavailable [phone] Se Levy [facility] Unavailable Unavailable Clari Ruiz [facility] Unavailable [phone] Angel Hannah MD Unavailable Lesly Celaya MD Unavailable Tawana Patel MA Unavailable Unavailable Ramses Mcpherson MD Unavailable [phone] Obdulio Barrera MD Unavailable [phone] Obdulio Barrera MD Unavailable [phone] Lesvia Stanley Unavailable Marilia Deluna PhD Unavailable Niyah Decker [facility] Unavailable Clari Poole [facility] Unavailable JadenLesvia Esther Unavailable JamisonMago [facility] Unavailable Reason for Visit Reason Onset Date Comments Refill Request 02/09/2022 Albuterol Inhaler Encounter Details Date Type Department Care Team Description 02/09/2022 Refill [facility] Aydee Burton, Refill Request Clinic Organ COMMERCIAL ANALYST CONTROL SYSTEMS DESIGNER (Albuterol Inhaler ) [address] [place] [address] [place], [place] [phone] (Wo rk) [address] [phone] Social History Tobacco Use Types Packs/Day Years [...] How often do you attend mandaen or jainism services? Never 08/05/2021 Do you [...] at Date Recorded Female 11/09/2021 7:53 PM DIGITAL MEASUREMENT ADVISOR COVID-19 Exposure Response Date Recorded In the last 10 days, have you been in contact with No / Unsu re 03/15/2022 8:01 AM CDT someone who was confirmed or suspected to have Coronavirus/COVID-19? documented as of this encounter Miscellaneous Notes Telephone Encounter - Keren Dong RN - 02/09/2022 3:06 PM CDT Routing refill request to provider for review/approval because: Act Keren Dong RN Telephone Encounter - Ziyad Frausto - 02/09/2022 8:56 AM CDT Reason for Call: Medication or medication refill: Do you use a [facility]? Name of the pharmacy and phone number for the current request: [facility] ([facility] Name of the medication requested: Albuterol Inhaler [...] Visit Pulmonology Obdulio Barrera MD [address] [address] (Wo edilberto) 10/25/2022 PRE VISIT ENT Charo Burton MD Previsit [address] [place] [address] (Estefanía casanova) 10/25/2022 Office Visit ENT Charo Burton MD 909 [place], [place] [address] (Wo rk) 10/25/2022 Office Visit ENT Provider, Ent Dysphonia [employer] Worker 10/25/2022 Virtual Visit Pain & Palliative [place] [address] [place], [place] [address] 10/28/2022 Appointment Speech Therapy Anabel Chew, CHILDREN'S PROGRAM COORDINATOR [address] [address] (Wo rk) 11/17/2022 Appointment Speech Therapy Anabel Chew, CHILDREN'S PROGRAM COORDINATOR [address] 6[address]85 (Wo rk) 12/01/2022 Office Visit Pain & [place] [address] [place], [place] [address] (Wo rk) 12/23/2022 Office Visit Neurology Colby Yeung MD [address] [place], [place] [address] (Wo rk) documented as of this encounter Visit Diagnoses Diagnosis Reduced chest expansion on inspiration Other symptoms involving respiratory sys tem and chest Wheezing documented in this encounter Additional Health Concerns Infection Onset Date Last Indicated Resolved Time Rule Out COVID-19 03/08/2022 03/08/2022 03/08/2022 4:1 9 PM CDT Rule Out Pertussis 03/08/2022 03/08/2022 03/09/2022 9: 56 AM CDT Assessment Noted Time PHQ-9 Depression Total Score: 15 2022 7:02 AM CD T documented as of this encounter Care Teams Audit Practice Intern Relationship Specialty Start Date End Date Aydee Burton, PCP - General Nurse Practitioner - 05/17/21 COMMERCIAL ANALYST CONTROL SYSTEMS DESIGNER Family [address] [place], [place] [phone] Aydee Burton, Assigned PCP 04/28/21 COMMERCIAL ANALYST CONTROL SYSTEMS DESIGNER [address] [place], [place] [phone] Louisa Hood, Assigned Neuroscience 07/11/21 COMMERCIAL ANALYST CONTROL SYSTEMS DESIGNER Provider 500 [place], [place] [address] Se Levy, Lead General Teller 08/05/21 05/12/22 Clari Francois Pharmacist Pharmacist 08/06/21 06/07/22 [facility] [address] [place], [place] [phone] [place], Assigned Sleep 08/01/21 Angel Turcios, Provider [address] [place], [place] [phone] Lesly Celaya MD Assigned Surgical 09/05/21 [address] Provider [place], [place] [phone] Amanda [facility]ly [facility] 09/30/21 Worker Ramses Mcpherson Assigned OBGYN 11/07/21 MD Onesimo Provider [address] [place], [place] [phone] Obdulio Barrera MD Critical Care 01/24/[address] [place] [address] Obdulio Barrera, Tone Pulmonology 02/06/22 MD Provider [address] [address] Lesvia Stanley, GHADA Cardiac Rehabilitation 03/03/22 03/03/23 [facility] The[facility] [address] [address] Marilia Deluna, PhD Assigned Behavioral 02/20/22 [address] [facility] [place] [place] [address] Niyah Decker, [facility] Pharmacist Pharmacist 03/07/22 420 [facility] 812 [place] [address] Clari Poole, Pharmacist Pharmacist 03/07/22 06/15/22 [facility] 3305 [facility] [address] [place] [address] Lesvia Stanley, GHADA Cardiac Rehabilitation 03/17/22 03/17/23 [facility] Therapist [address] [address] Mago Swift, [facility] Lead General Teller Shaper Hand - 08/05/21 Clinical documented as of this encounter
--- OUTSIDE RECORDS SUMMARY | 2022-10-21 08:58 | XMS_ITS | Encounter Summary ---
:1980 Author Organization [place] Address [address] [place] [address] Care Team Providers Name Role Phone Aydee Burton BOTTLE HOUSE QUALITY CONTROL TECHNICIAN RUBBER GASKET INSPECTOR TRIMMER Primary Care Provider Aydee Burton BOTTLE HOUSE QUALITY CONTROL TECHNICIAN RUBBER GASKET INSPECTOR TRIMMER Unavailable [phone] Louisa Hood BOTTLE HOUSE QUALITY CONTROL TECHNICIAN RUBBER GASKET INSPECTOR TRIMMER Unavailable [phone] Se Levy [employer] Unavailable Unavailable Clari Ruiz [facility] Unavailable [phone] Angel Hannah MD Unavailable Lesly Celaya MD Unavailable Tawana Patel MA Unavailable Unavailable Ramses Mcpherson MD Unavailable [phone] Obdulio Barrera MD Unavailable [phone] Mago Swift ZIGZAG STITCHER Unavailable Encounter Details Date Type Department Care [...] How often do you attend lutheran or pentecostal services? Never 08/05/2021 Do you [...] at Date Recorded Female 11/09/2021 7:53 PM CHICKEN BUYER COVID-19 Exposure Response Date Recorded In the last month, have you been in contact with No / Unsure 01/31/2022 7:56 AM CDT someone who was confirmed or suspected to have Coronavirus / COVID-19? documented as of this encounter Plan of Treatment Upcoming Encounters Date Type Specialty Care Team Description 10/21/2022 Office Visit Pulmonology Obdulio Barrera MD [address] [address] (Wo rk) 10/25/2022 PRE VISIT Charo Carter MD Previsit [address] [place] [address] (Wo rk) 10/25/2022 Office Visit Charo Carter MD 9 [place] [address] (Wo rk) 10/25/2022 Office Visit ENT Provider, Jeannette Ent Dysphonia Pacu Nurse 10/25/2022 Virtual Visit Pain & [place]iative [place] [address] [place], [place] [address] 10/28/2022 Appointment Speech Therapy Anabel Chew, SOCK AND STOCKING IRONER [address] [phone] (Wo rk) 11/17/2022 Appointment Speech Therapy Anabel Chew, SOCK AND STOCKING IRONER [address] [address] (Wo rk) 12/01/2022 Office Visit Pain [place] [address] [place], [place] [address] (Wo rk) 12/23/2022 Office Visit Neurology Colby Yeung MD [address] [place] [address] (Wo rk) documented as of this encounter Visit Diagnoses Not on filedocumented in this encounter Additional Health Concerns Assessment Noted Time PHQ-9 Depression Total Score: 15 2022 7:02 AM CD T documented as of this encounter Care Teams Emergency Management Program Specialist Relationship Specialty Start Date End Date Aydee Burton, PCP - General Nurse Practitioner - 05/17/21 BOTTLE HOUSE QUALITY CONTROL TECHNICIAN RUBBER GASKET INSPECTOR TRIMMER Family [address] [place] [phone] Aydee Burton, Assigned PCP 04/28/21 BOTTLE HOUSE QUALITY CONTROL TECHNICIAN [facility] [address] [place] [phone] Louisa Hood, Assigned Neuroscience 07/11/21 BOTTLE HOUSE QUALITY CONTROL TECHNICIAN RUBBER GASKET INSPECTOR TRIMMER Provider [address] [place] [address] Se Levy, Lead Bobj Developer 08/05/21 05/12/22 [facility] Clari Ruiz Pharmacist Pharmacist 08/06/21 06/07/22 Jocelyn, [facility] [address] [place] [address] [place], Assigned Sleep 08/01/21 Angel Turcios, Provider [address] [place] [address] Lesly Celaya MD Assigned Surgical 09/05/21 [address] Provider [place], [place] [phone] Tawana Patel MA [facility] 09/30/21 Worker Ramses Mcpherson Assigned OBGYN 11/07/21 MD Onesimo Provider [address] [place] [address] Obdulio Barrera MD Critical Care 01/24/22 420 [facility] 276 [place], [place] [phone] Mago Swift, [facility] Lead Bobj Developer Mri Ct Tech - 08/05/21 Clinical documented as of this encounter
--- OUTSIDE RECORDS SUMMARY | 2022-10-21 08:58 | XMS_ITS | Encounter Summary ---
:1980 Author Organization [place] Address [address] [place] [address] Care Team Providers Name Role Phone Aydee Burton MACHINIST HELPER MARINE CUSTOMER SERVICER Primary Care Provider Aydee Burton MACHINIST HELPER MARINE CUSTOMER SERVICER Unavailable [phone] Louisa Hood MACHINIST HELPER MARINE CUSTOMER SERVICER Unavailable [phone] Se Levy FIELD ADJUSTER Unavailable Unavailable Clari Ruiz [facility] Unavailable Angel Hannah MD Unavailable Lesly Celaya MD Unavailable Tawana Patel MA Unavailable Unavailable Ramses Mcpherson MD Unavailable [phone] Obdulio Barrera MD Unavailable [phone] Mago Swift MERCHANDISE EXECUTIVE Unavailable Encounter Details Date Type Department Care Team Description 01/31/2022 Lab [facility] Laboratory Cough [address] [place] [address] Social History Tobacco Use Types Packs/Day Years [...] How often do you attend denominational or oriental orthodox services? Never 08/05/2021 Do [...] at Date Recorded Female 11/09/2021 7:53 PM AR MANAGER COVID-19 Exposure Response Date Recorded In the last month, have you been in contact with No / Unsure 01/31/2022 7:56 AM CDT someone who was confirmed or suspected to have Coronavirus / COVID-19? documented as of this encounter Plan of Treatment Upcoming Encounters Date Type Specialty Care Team Description 10/21/2022 Office Visit Pulmonology Obdulio Barrera MD [address] [address] (Wo rk) 10/25/2022 PRE VISIT ENT Charo Burton MD Previsit [address] [place] [address] (Wo rk) 10/25/2022 Office Visit ENT Charo Burton MD 909 [place], [place] [address] (Wo rk) 10/25/2022 Office Visit ENT Provider, Ent Dysphonia Dining Room Tables Set Up Attendant 10/25/2022 Virtual Visit Pain & [place] [address] [place], [place] [address] 10/28/2022 Appointment Speech Therapy Anabel Chew, MACHINE CAPTAIN [address] [place], [place] [id number] (Wo rk) 11/17/2022 Appointment Speech Therapy Anabel Chew, MACHINE CAPTAIN [address] [place], [place] [address] (Wo rk) 12/01/2022 Office Visit Pain & [place] [address] [place], [place] [address] (Wo rk) 12/23/2022 Office Visit Neurology Colby Yeung MD [address] [place] [phone] (Wo rk) documented as of this encounter [...] Urine or CSF (01/31/2022 5:20 PM CDT) [facility] Method Time Signature Streptococcus Negative Negative NIKOLAS [...] Code Phon e Number [facility] [place] [address] Diag. Lab 500 [facility], Room D297 Legionella pneumophila antigen urine (01/31/2022 5:20 PM CDT) [facility] Method Time Signature Legionella Negative Negative NIKOLAS [...] Code Phon e Number [facility] [place] [address] Diag. Lab 500 [facility], Room D297 Blastomyces Agn Quant EIA Blood (01/31/2022 4:45 PM CDT) [facility] Dataminr Method Time Signature See Scanned BLASTOMYCES AGN [...] MICRO GENERAL ORDERABL ES Performing Organization Address City/[facility]/ZIP Code Phon e Number [facility] [address] [place] [place] [address] [address] Histoplasma capsulatum antigen (01/31/2022 4:45 PM CDT) [facility] Dat[facility]r Method Time Signature See Scanned HISTOPLASMA 02/04/2022 [...] Address City/State/ZIP Code Phon e Number [facility] [address] [place] [address] [address] 1,3 Beta D glucan fungitell (01/31/2022 4:45 PM CDT) [facility] Method Time Signature (1,3)-Lbaq-M-Csmrw <31 pg/mL 02/02/2022 [facility] n 1:42 PM CDT B-D GLUCAN Negative Negative 02/02/2022 [facility] INTERPRETATION 1:42 PM CDT (1,3) Comment: [...] cus, which produce very low levels of (1,3)-zhem-F-btimfn. This test will not detect the zygomycetes, such as Absidia, Mucor, and Rhizopus, which are not known to produce (1,3)-eoqe-D-dzngut. In addition, the ye ast phase of Blastomyces dermatitidis produces little (1,3)-scce-J-mrxogb and may not be detec mike by the assay. Performed By: [facility] [address] [place] [address] Machine Captain: Florence Naranjo MD Specimen Anatomical Collection Method / Collection Time Recei edil Time (Source) Location / Volume Laterality Blood STRUCTURE OF RIGHT Venipuncture / 01/31/2022 4:45 03/2 11/2021 4:45 UPPER LIMB / Unknown PM CDT PM CDT Unknown Obdulio Barrera MD LAB - BLOOD ORDERABLES Performing Organization Address City/State/ZIP Code Phon e Number [facility] [place], [place] [phone] [address] [facility] [address] Aspergillus Galactomannan Antigen (01/31/2022 4:45 PM CDT) [facility] Method Time Signature Aspergillus 0.04 02/04/2022 [facility] Galactomannan 12:04 AM CDT Index Aspergillus Negative Negative 02/04/2022 [facility] Galact AG 12:04 AM CDT Comment: [...] serial sampling is recommended . Performed By: [facility] [address] [place] [address] Machine Captain: Florence Naranjo MD Specimen Anatomical Collection Method / Collection Time Recei edil Time (Source) Location / Volume Laterality Blood STRUCTURE OF RIGHT Venipuncture / 01/31/2022 4:45 03/2 11/2021 4:45 UPPER LIMB / Unknown PM CDT PM CDT Unknown Obdulio Barrera MD LAB - MICRO GENERAL ORDERABL ES Performing Organization Address City/State/[facility] Code Phon e Number [facility] [place] [phone] [address] [facility] [address] Hypersensitivity Pneumonitis 2 (01/31/2022 4:45 PM CDT) [facility] Method Time Signature Aspergillus None None 02/08/2022 [facility] flavus Ab Detected Detected 3:08 PM CDT Comment: Performed By: [facility] [address] [place] [address] A fumigatus #2 Ab None Detected None Detected 02/08/2022 3:0 8 PM CDT [facility] Comment: Performed By: [facility] [address] [place] [address] A fumigatus #3 Ab None Detected None Detected 02/08/2022 3:0 8 PM CDT [facility] Comment: Performed By: [facility] [address] [place] [address] Saccharo viridis Ab None Detected None Detected 02/08/2022 3:08 PM CDT [facility] Comment: Performed By: [facility] [address] [place] [address] Thermo candidus Ab None Detected None Detected 02/08/2022 3:08 PM CDT [facility] Comment: Testing includes antibodies directed at Aspergillus flavus, Aspergillus fumigatus #2, Aspergillus fu migatus #3, Saccharomonospora viridis, and Thermoact inomyces candidus. Performed By: [facility] [address] [place], [place] [id number] Specimen Anatomical Collection Method / Collection Time Recei edil Time (Source) Location / Volume Laterality Blood STRUCTURE OF RIGHT Venipuncture / 01/31/2022 4:45 03/2 11/2021 4:45 UPPER LIMB / Unknown PM CDT PM CDT Unknown Obdulio Barrera MD LAB - BLOOD ORDERABLES Performing Organization Address City/State/ZIP Code Phon e Number [place], [place] [phone] [place] [address] Hypersensitivity pneumonitis (01/31/2022 4:45 PM CDT) [facility] gist Method Time Signature Aspergillus None None 02/08/2022 [facility] Fumagatis 1 Detected Detected 3:07 PM CDT Antibody Comment: Performed By: [facility] [address] [place] [address] Aspergillus Fumagatis None Detected None Detected 02/08/2022 3:07 PM [facility] 6 Antibody CDT Comment: Performed By: [facility] [address] [place] [address] Aureo Pullulans None Detected None Detected 02/08/2022 3:07 PM CDT [facility] Comment: Performed By: [facility] [address] [place] [address] [place] serum None Detected None Detected 02/08/2022 3:07 PM CDT [facility] Comment: Performed By: [facility] [address] [place] [address] Micropolyspora Faeni None Detected None Detected 3:07 PM CDT [facility] Comment: Performed By: [facility] [address] [place] [address] Thermoact Vulgaris 1 See Note None Detected 02/08/2022 3:07 PM CDT [facility] Comment: Testing includes antibodies directed at Aureobasidium pullulans, Aspergillus fumigatus #1, Asp ergillus fumigatus #6, Micropolyspora faeni, [place] Serum a nd Thermoactinomyces vulgaris #1. Thermoactinomyces vulgaris #1 testing no t performed due to unsatisfactory reagent performance. A cr edit will be issued for this component. Performed By: [facility] [address] [place] [address] Specimen Anatomical Collection Method / Collection Time Recei edil Time (Source) Location / Volume Laterality Blood STRUCTURE OF RIGHT Venipuncture / 01/31/2022 4:45 03/2 11/2021 4:45 UPPER LIMB / Unknown PM CDT PM CDT Unknown Obdulio Barrera MD LAB - BLOOD ORDERABLES Performing Organization Address City/State/ZIP Code Phon e Number [facility] [place], [place] [phone] 500 [facility] [address] documented in this encounter Visit Diagnoses Diagnosis Cough documented in this encounter Additional Health Concerns Assessment Noted Time PHQ-9 Depression Total Score: 15 2022 7:02 AM CD T documented as of this encounter Care Teams Poultry Cleaner Relationship Specialty Start Date End Date Aydee Burton, PCP - General Nurse Practitioner - 05/17/21 MACHINIST HELPER MARINE CUSTOMER SERVICER Family [address] [place], [place] [phone] Aydee Burton, Assigned PCP 04/28/21 MACHINIST HELPER MARINE CUSTOMER SERVICER [address] [place], [place] [phone] Louisa Hood, Assigned Neuroscience 07/11/21 MACHINIST HELPER MARINE CUSTOMER SERVICER Provider 500 [place], [place] [phone] Se Levy, Lead Family Practice Nurse Practitioner 08/05/21 05/12/22 Clari Francois Pharmacist Pharmacist 08/06/21 06/07/22 Jocelyn [facility] [address] [place], [place] [phone] [place], Assigned Sleep 08/01/21 Angel Turcios, Provider [address] [place], [place] [phone] Lesly Celaya MD Assigned Surgical 09/05/21 [address] [place] [address] Tawana Patel MA [facility] 09/30/21 Worker Ramses Mcpherson Assigned OBGYN 11/07/21 MD Onesimo Provider [address] [place], [place] [address] Obdulio Barrera MD Critical Care 01/24/22 420 [facility] [address] [place], [place] [address] Mago Swift [facility] Lead Family Practice Nurse Practitioner Machinery Rigger - 08/05/21 Clinical documented as of this encounter
--- OUTSIDE RECORDS SUMMARY | 2022-10-21 08:58 | XMS_ITS | Encounter Summary ---
:1980 Author Organization [facility] Address [address] [place] [address] Care Team Providers Name Role Phone Aydee Burton BALL ENDER WINDROWER OPERATOR Primary Care Provider Aydee Burton BALL ENDER WINDROWER OPERATOR Unavailable [phone] Louisa Hood BALL ENDER WINDROWER OPERATOR Unavailable [phone] Se Levy DOCUMENTATION NURSE Unavailable Unavailable Clari Ruiz [facility] Unavailable [phone] Angel Hannah MD Unavailable Lesly Celaya MD Unavailable Tawana Patel MA Unavailable Unavailable Ramses Mcpherson MD Unavailable [phone] Obdulio Barrera MD Unavailable [phone] Obdulio Barrera MD Unavailable [phone] Mago Swift INTERACTIVE MEDIA DESIGNER Unavailable Encounter Details Date Type Department Care [...] How often do you attend judaism or gnosticist services? Never 08/05/2021 Do you [...] at Date Recorded Female 11/09/2021 7:53 PM CERAMIC TILE SETTER COVID-19 Exposure Response Date Recorded In the last month, have you been in contact Unable to assess 02/08/2022 5:05 PM CDT with someone who was confirmed or suspected to have Coronavirus / COVID-19? documented as of this encounter Plan of Treatment Upcoming Encounters Date Type Specialty Care Team Description 10/21/2022 Office Visit Pulmonology Obdulio Barrera MD [address] [address] (Wo rk) 10/25/2022 PRE VISIT ENT Charo Burton MD Previsit 909 [place] [address] (Wo rk) 10/25/2022 Office Visit ENT Charo Burton MD [address] [place], [place] [address] (Wo rk) 10/25/2022 Office Visit ENT Provider, Jeannette Ent Dysphonia Account Assistant 10/25/2022 Virtual Visit Pain & [place] [address] [place], [place] [address] 10/28/2022 Appointment Speech Therapy Anabel Chew, OIL SCOUT [address] [address] (Wo rk) 11/17/2022 Appointment Speech Therapy Anabel Chew, OIL SCOUT [address] [phone] (Wo rk) 12/01/2022 Office Visit Pain & [place] [address] [place], [place] [address] (Wo rk) 12/23/2022 Office Visit Neurology Colby Yeung MD [address] [place] [address] (Wo rk) documented as of this encounter Visit Diagnoses Not on filedocumented in this encounter Additional Health Concerns Assessment Noted Time PHQ-9 Depression Total Score: 15 2022 7:02 AM CD T documented as of this encounter Care Teams Welder Boilermaker Relationship Specialty Start Date End Date Aydee Burton, PCP - General Nurse Practitioner - 05/17/21 BALL ENDER WINDROWER OPERATOR Family [address] [place] [phone] Aydee Burton, Assigned PCP 04/28/21 B[address] ENDER [address] [phone] Louisa Hood, Assigned Neuroscience 07/11/21 BALL ENDER WINDROWER OPERATOR Provider [address] [place], [place] [address] Se Levy, Lead Satin Finisher 08/05/21 05/12/22 DOCUMENTATION NURSE Clari Ruiz Pharmacist Pharmacist 08/06/21 06/07/22 [facility] [address] [place], [place] [phone] [place], Assigned Sleep 08/01/21 Angel Turcios, Provider [address] [place], [place] [address] Lesly Celaya MD Assigned Surgical 09/05/21 [address] Provider [place], [place] [address] Tawana Patel MA [facility] 09/30/21 Worker Ramses Mcpherson Assigned OBGYN 11/07/21 MD Onesimo Provider [address] [place], [place] [address] Obdulio Barrera MD Critical Care 01/24/[address] [place] [address] Obdulio Barrera, Assigned Pulmonology 02/06/[address] [phone] Mago Swift, [facility] Lead Satin Finisher Roulette Dealer - 08/05/21 Clinical documented as of this encounter
--- OUTSIDE RECORDS SUMMARY | 2022-10-21 08:58 | XMS_ITS | Encounter Summary ---
:1980 Author Organization [place] Address [address] [place] [address] Care Team Providers Name Role Phone Aydee Burton METAL MODEL MAKER DIRECTOR SALES Primary Care Provider Aydee Burton METAL MODEL MAKER DIRECTOR SALES Unavailable [phone] Louisa Hood METAL MODEL MAKER DIRECTOR SALES Unavailable [phone] Se Levy [facility] Unavailable Unavailable Clari Ruiz [facility] Unavailable [phone] Angel Hannah MD Unavailable Lesly Celaya MD Unavailable Tawana Patel MA Unavailable Unavailable Ramses Mcpherson MD Unavailable [phone] Obdulio Barrera MD Unavailable [phone] Obdulio Barrera MD Unavailable [phone] Lesvia Stanley Unavailable Marilia Deluna PhD Unavailable Niyah Decker [facility] Unavailable Clari Poole [facility] Unavailable Lesvia Stanley Unavailable JosephClari jay [facility] Unavailable [phone] Israkb Niyah Caro Unavailable Delia Avila Mel [facility] Unavailable [phone] Mandt, Delia Mel RPH Unavailable [phone] Schweivictorino Niyah Caro [facility] Unavailable JamisonMago [facility] Unavailable SchweiNiyah gleason [facility] Unavailable SimonaLeela [facility] Unavailable SchwNiyah grossman [facility] Unavailable Marvin Miranda MD Unavailable Marvin Miranda MD Unavailable Joseph Clari Munguiae [facility] Unavailable [phone] Encounter Details Date Type Department Care Team Description 02/07/2022 [facility] Aydee Burton APRN [facility] [address] [place] [address] [address] [place], [place] [address] [place] [address] [phone] (Wo rk) Social History Tobacco Use Types [...] How often do you attend restorationist or nondenominational services? Never 08/05/2021 Do you [...] at Date Recorded Female 11/09/2021 7:53 PM PRETZEL TWISTING MACHINE OPERATOR COVID-19 Exposure Response Date Recorded [...] Barrera MD 420 [facility] [address] [place] [address] (Wo rk) 10/25/2022 PRE VISIT ENT Charo Burton MD Previsit [address] [place] [address] (Wo rk) 10/25/2022 Office Visit ENT Charo Burton MD [address] [place], [place] [address] (Wo rk) 10/25/2022 Office Visit ENT Provider, Jeannette Ent Dysphonia Roller Embosser 10/25/2022 Virtual Visit Pain & [place] [address] [place], [place] [address] 10/28/2022 Appointment Speech Therapy Anabel Chew, PUBLISHING SYSTEMS ANALYST [address] [address] (Wo rk) 11/17/2022 Appointment Speech Therapy Anabel Chew, PUBLISHING SYSTEMS ANALYST [address] [address] (Wo rk) 12/01/2022 Office Visit Pain & [place] [address] [place], [place] [address] (Wo rk) 12/23/2022 Office Visit Neurology Colby Yeung MD [address] [place], [place] [address] (Wo rk) documented as of this encounter [...] documented as of this encounter Care Teams Snowboard Instructor Relationship Specialty Start Date End Date Aydee Burton PCP - General Nurse Practitioner - 05/17/21 ELADIO Mendez DIRECTOR SALES Family [address] [place], [place] [phone] Aydee Burton Assigned PCP 04/28/21 ELADIO Mendez DIRECTOR SALES [address] [place] [address] Louisa Hood Assigned Neuroscience 07/11/21 ELADIO Recinos DIRECTOR SALES Provider 500 [place] [address] Se Levy, Lead Sandwich And Drink Cart Operator 08/05/21 05/12/22 CERAMICS INSTRUCTORClari Ordonez Pharmacist Pharmacist 08/06/21 06/07/22 [facility] [address] [place] [address] [place], Assigned Sleep 08/01/21 Angel Turcios Provider [address] [place] [address] Lesly Celaya MD Assigned Surgical 09/05/21 [address] Provider [place], [place] [phone] [facility] 09/30/21 MA Worker Ramses Mcpherson Assigned OBGYN 11/07/21 MD Onesimo Provider [address] [place] [address] Obdulio Barrera MD Critical Care 01/24/22 MD Leo 420 [facility] [address] [place], [place] [phone] Obdulio Barrera Assigned Pulmonology 02/06/22 MD Leo Provider 420 [facility] [address] [place], [place] [address] Lesvia Stanley, Cardiac Rehabilitation 03/03/22 03/03/23 EP Therapist [facility] [address] [place], [place] [address] Marilia Deluna, Assigned Behavioral 02/20/22 [facility] Health Provider [address] [place] [address] Niyah Decker, [facility] Pharmacist Pharmacist 03/07/22 420 [facility] [address] [place] [address] Clari Poole, Pharmacist Pharmacist 03/07/22 06/15/22 [facility] [address] [facility] [address] [place] [phone] Lesvia Stanley, Cardiac Rehabilitation 03/17/22 03/17/23 EP Therapist [facility] [address] [place] [address] Clari Ruiz Assigned MTM 04/09/22 05/27/22 Jocelyn [facility] Pharmacist [address] [place], [place] [phone] Niyah Warner, Lead Sandwich And Drink Cart Operator Primary Care - CC 06/27/22 RN Delia Avila Pharmacist Pharmacist 06/07/22 Mel [facility] [address] [place] [address] Delia Avila Assigned MTM 06/11/22 06/24/22 Mel [facility] Pharmacist [address] [place] [address] Niyah Decker, [facility] Assigned MTM 05/28/22 06/10/22 420 [facility] Pharmacist [address] [place] [address] Mago Swift, Lead Sandwich And Drink Cart Operator Gate Mortiser Operator - 08/05/21 [facility] Clinical Niyah Decker, [facility] Assigned MTM 06/25/22 07/29/22 420 [facility] Pharmacist [address] [place] [address] Leela Jarvis [facility] Pharmacist 07/26/22 05/15/23 [address] [facility] [address] [place] [phone] Niyah Decker, [facility] Assigned MTM 08/10/22 09/16/22 420 [facility] Pharmacist [address] [place] [address] Marvin Miranda MD Gastroenterology 09/21/22 500 [facility] [address] [place], [place] [address] Marvin Miranda, Assigned 10/01/22 Gastroenterology [address] [facility] Provider [address] [place], [place] [address] Clari Ruiz Assigned MTM 09/17/22 Jocelyn [facility] Pharmacist [address] [place], [place] [address] documented as of this encounter
--- OUTSIDE RECORDS SUMMARY | 2022-10-21 08:58 | XMS_ITS | Encounter Summary ---
:1980 Author Organization [place] Address [address] [place] [address] Care Team Providers Name Role Phone Aydee Burton LATEX SPOOLER PROPOSAL DEVELOPMENT MANAGER Primary Care Provider [phone] Aydee Burton LATEX SPOOLER PROPOSAL DEVELOPMENT MANAGER Unavailable [phone] Louisa Hood LATEX SPOOLER PROPOSAL DEVELOPMENT MANAGER Unavailable [phone] Se Levy LITIGATION SUPPORT ANALYST Unavailable Unavailable Clari Ruiz [facility] Unavailable [phone] Angel Hannah MD Unavailable Lesly Celaya MD Unavailable Tawana Patel MA Unavailable Unavailable Ramses Mcpherson MD Unavailable [phone] Obdulio Barrera MD Unavailable [phone] Obdulio Barrera MD Unavailable [phone] Mago Swift RN [facility] Unavailable Encounter Details Date Type Department Care [...] How often do you attend tenriism or jewish services? Never 08/05/2021 Do you [...] at Date Recorded Female 11/09/2021 7:53 PM CRIB CLERK COVID-19 Exposure Response Date Recorded In the last month, have you been in contact with No / Unsure 02/15/2022 10:52 AM CDT someone who was confirmed or suspected to have Coronavirus / COVID-19? documented as of this encounter Plan of Treatment Upcoming Encounters Date Type Specialty Care Team Description 10/21/2022 Office Visit Pulmonology Obdulio Barrera MD [address] [address] (Wo rk) 10/25/2022 PRE VISIT ENT Charo Burton MD Previsit [address] [place] [address] (Estefanía rk) 10/25/2022 Office Visit ENT Charo Burton MD 909 [place], [place] [address]85 (Wo rk) 10/25/2022 Office Visit ENT Provider, Ent Dysphonia Property Custodian 10/25/2022 Virtual Visit Pain & [place] [address] [place], [place] [address] 10/28/2022 Appointment Speech Therapy Anabel Chew, SHOP TEACHER [address] 319385 (Wo rk) 11/17/2022 Appointment Speech Therapy Anabel Chew, SHOP TEACHER [address] 503215 (Wo rk) 12/01/2022 Office Visit Pain & [place] [address] [place], [place] [address] (Wo rk) 12/23/2022 Office Visit Neurology Colby Yeung MD [address] [place] [id number] (Wo rk) documented as of this encounter Visit Diagnoses Not on filedocumented in this encounter Additional Health Concerns Assessment Noted Time PHQ-9 Depression Total Score: 15 2022 7:02 AM CD T documented as of this encounter Care Teams Security And Privacy Consultant Relationship Specialty Start Date End Date Aydee Burton, PCP - General Nurse Practitioner - 05/17/21 LATEX SPOOLER PROPOSAL DEVELOPMENT MANAGER Family [address] [place] [address] [phone] Aydee Burton, Assigned PCP 04/28/21 LATEX SPOOLER [address] [address] ErwinLouisa, Assigned Neuroscience 07/11/21 LATEX SPOOLER PROPOSAL DEVELOPMENT MANAGER Provider 500 [place], [place] [phone] Se Levy, Lead Washer Hand 08/05/21 05/12/22 LITIGATION SUPPORT ANALYST Clari Ruiz Pharmacist Pharmacist 08/06/21 06/07/22 [facility] [address] [place], [place] [phone] [place], Assigned Sleep 08/01/21 Angel Turcios, Provider [address] [place], [place] [address] Lesly Celaya MD Assigned Surgical 09/05/21 [address] Provider [place], [place] 30[address] Tawana Patel MA [facility] 09/30/21 Worker Ramses Mcpherson Assigned OBGYN 11/07/21 MD Onesimo Provider [address] [place], [place] 4[address] Obdulio Barrera MD Critical Care 01/24/[address] [place] [address] [phone] Obdulio Barrera, Assigned Pulmonology 02/06/[address] 648[address] Mago Swift, [facility] Lead Washer Hand Multi Spindle Operator - 08/05/21 Clinical documented as of this encounter
--- OUTSIDE RECORDS SUMMARY | 2022-10-21 08:58 | XMS_ITS | Encounter Summary ---
:1980 Author Organization [place] Address [address] [place] [address] Care Team Providers Name Role Phone Aydee Burton DIET THERAPIST HEAD COUNSELOR Primary Care Provider Aydee Burton DIET THERAPIST HEAD COUNSELOR Unavailable [phone] Louisa Hood DIET THERAPIST HEAD COUNSELOR Unavailable [phone] Se Levy [facility] Unavailable Unavailable Clari Ruiz [facility] Unavailable [phone] Angel Hannah MD Unavailable Lesly Celaya MD Unavailable Tawana Patel MA Unavailable Unavailable Ramses Mcpherson MD Unavailable [phone] Obdulio Barrera MD Unavailable [phone] Obdulio Barrera MD Unavailable [phone] Lesvia Stanley Unavailable Marilia Deluna PhD Unavailable Niyah Decker [facility] Unavailable Clari Poole [facility] Unavailable Lesvia Stanley Unavailable JosephClari jay [facility] Unavailable [phone] Israkb Niyah Caro Unavailable Delia Avila Mel [facility] Unavailable [phone] Mandt, Delia Mel RPH Unavailable [phone] Schweivictorino Niyah Caro [facility] Unavailable JamisonMago [facility] Unavailable SchweiNiyah gleason [facility] Unavailable SimonaLeela [facility] Unavailable SchwNiyah grossman [facility] Unavailable Marvin Miranda MD Unavailable Marvin Miranda MD Unavailable Joseph Clari Munguiae [facility] Unavailable [phone] Encounter Details Date Type Department Care Team Description 02/22/2022 [facility] Aydee Burton APRN [facility] [address] [place] [address] [address] [place], [place] [address] [place] [address] [phone] (Wo rk) Social History Tobacco Use Types [...] How often do you attend methodist or sikhism services? Never 08/05/2021 Do you [...] at Date Recorded Female 11/09/2021 7:53 PM SAUSAGE CANNER COVID-19 Exposure Response Date Recorded In the [...] PM Return Visit with Lucas Anaya MD [facility] ([facility] ) [address] [address] Feb 25, 2022 2:30 PM (Arrive by 2:10 PM) Provider Visit with Aydee Burton APRN CNP [facility] ([facility] ) [address] [place] [phone] Feb 28, 2022 1:00 PM (Arrive by 12:40 PM) Provider Visit with Nadeem Mahmood MD [facility] ([facility] ) [facility] Evette Cortezvard [facility] [phone] Mar 11, 2022 10:00 AM Return Visit with Obdulio Barrera MD [facility] ([facility] ) [address] [place] [phone] May 11, 2022 3:00 PM Return Visit with Obdulio Barrera MD [facility] ([facility] ) [address] [place] [phone] CSA -- Patient Level: CSA: None found at the patient level. Routing refill request to provider for review/approval because: Drug not on the [facility] refill protocol Carolyn Alejandro RN, BSN [facility] Triage documented in this encounter Plan of Treatment Upcoming Encounters Date Type Specialty Care Team Description 10/21/2022 Office Visit Pulmonology Obdulio Barrera MD [address] [place] [address] [phone] (Estefanía rk) 10/25/2022 PRE VISIT Charo Carter MD Previsit [address] [place] [address] 872255 (Estefanía rk) 10/25/2022 Office Visit Charo Carter MD [address] [place] [address]505 (Wo rk) 10/25/2022 Office Visit ENT Provider, Jeannette Ent Dysphonia Education Trainer 10/25/2022 Virtual Visit Pain & [place]iative [place] [address] [place], [place] [address] 10/28/2022 Appointment Speech Therapy Anabel Chew, OPERATIONS VOCATIONAL INSTRUCTOR [address] 917805 (Wo rk) 11/17/2022 Appointment Speech Therapy Anabel Chew, OPERATIONS VOCATIONAL INSTRUCTOR [address] 690605 (Wo rk) 12/01/2022 Office Visit Pain & [place] [address] [place], [place] [address] (Wo rk) 12/23/2022 Office Visit Neurology Colby Yeung MD [address] [place] [id number] (Wo rk) documented as of this encounter [...] documented as of this encounter Care Teams Parachute/Combatant Diver Officer Relationship Specialty Start Date End Date Aydee Burton PCP - General Nurse Practitioner - 05/17/21 ELADIO Mendez HEAD COUNSELOR Family [address] [place] [address] [phone] Aydee Burton Assigned PCP 04/28/21 ELADIO Mendez HEAD COUNSELOR 4[address] [place] [address] Louisa Hood Assigned Neuroscience 07/11/21 ELADIO Recinos HEAD COUNSELOR Provider 500 [place] [address] Se Levy, Lead Geodetic Surveyor Technologist 08/05/21 05/12/22 GOLF COURSE SUPERINTENDENTClari Ordonez Pharmacist Pharmacist 08/06/21 06/07/22 [facility] [address] [place] [address] [place], Assigned Sleep 08/01/21 Angel Turcios, Provider [address] [place] [address] Lesly Celaya MD Assigned Surgical 09/05/21 [address] [place] [address] [facility] 09/30/21 MA Worker Ramses Mcpherson Assigned OBGYN 11/07/21 MD Onesimo Provider [address] [place] [address] Obdulio Barrera MD Critical Care 01/24/22 MD Leo [address] [address] Obdulio Barrera Assigned Pulmonology 02/06/22 MD Leo Provider 420 [facility] 276 [place] [address] Lesvia Stanley, Cardiac Rehabilitation 03/03/22 03/03/23 EP Therapist [facility] [address] [place] [address] Marilia Deluna, Assigned Behavioral 02/20/22 [facility] Provider [address] [place] [id number] Niyah Decker, [facility] Pharmacist Pharmacist 03/07/22 420 [facility] 812 [place] [address] Calri Poole, Pharmacist Pharmacist 03/07/22 06/15/22 [facility] [address] [facility] [place] [address] Lesvia Stanley, Cardiac Rehabilitation 03/17/22 03/17/23 EP Therapist [facility] [address] [place] [address] Clari Ruiz Assigned MTM 04/09/22 05/27/22 Jocelyn [facility] Pharmacist [address] [place] [address] Niyah Warner, Lead Geodetic Surveyor Technologist Primary Care - CC 06/27/22 RN Delia Avila Pharmacist Pharmacist 06/07/22 Mel [facility] 909 [place] [address] Delia Avila Assigned MTM 06/11/22 06/24/22 Mel [facility] Pharmacist 909 [place] [address] Niyah Decker, [facility] Assigned MTM 05/28/22 06/10/22 420 [facility] Pharmacist 812 [place] [address] Mago Swift, Lead Geodetic Surveyor Technologist Cutter Head Sharpener - 08/05/21 [facility] Niyah Decker [facility] Assigned MTM 06/25/22 07/29/22 420 [facility] Pharmacist 812 [place] [address] Leela Jarvis [facility] Pharmacist 07/26/22 05/15/[address] [facility] [address] [place] [id number] Niyah Decker [facility] Assigned MTM 08/10/22 09/16/22 420 [facility] Pharmacist 812 [place] [address] Marvin Miranda MD Gastroenterology 09/21/[address] [place] [address] [address] [place] [address] Marvin Miranda, Tone 10/01/22 Gastroenterology 516 [facility] Provider [address] [place], [place] [phone] Clari Ruiz Assigned [place] 09/17/22 Jocelyn [facility] Pharmacist [address] [place] [address] documented as of this encounter
--- OUTSIDE RECORDS SUMMARY | 2022-10-21 08:58 | XMS_ITS | Encounter Summary ---
:1980 Author Organization [place] Address [address] [place] [address] Care Team Providers Name Role Phone Aydee Burton DRAWING SUPERVISOR MACHINE SHORTHAND REPORTER Primary Care Provider Aydee Burton DRAWING SUPERVISOR MACHINE SHORTHAND REPORTER Unavailable [phone] Louisa Hood DRAWING SUPERVISOR MACHINE SHORTHAND REPORTER Unavailable [phone] Se Levy CLIENT HR MANAGER Unavailable Unavailable Clari Ruiz [facility] Unavailable [phone] Angel Hannah MD Unavailable Lesly Celaya MD Unavailable Tawana Patel MA Unavailable Unavailable Ramses Mcpherson MD Unavailable [phone] Obdulio Barrera MD Unavailable [phone] Obdulio Barrera MD Unavailable [phone] Mago Swift GLASS NOVELTY MAKER Unavailable Encounter Details Date Type Department [...] How often do you attend anabaptist or confucianist services? 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/2021 7:53 PM SUPERVISOR INSECTICIDE COVID-19 Exposure Response Date Recorded In the last month, have you been in contact Unable to assess 02/10/2022 11:30 AM CDT with someone who was confirmed or suspected to have Coronavirus / COVID-19? documented as of this encounter Plan of Treatment Upcoming Encounters Date Type Specialty Care Team Description 10/21/2022 Office Visit Pulmonology Obdulio Barrera MD [address] [address] (Wo rk) 10/25/2022 PRE VISIT ENT Charo Burton MD Previsit 909 [place] [address] (Wo rk) 10/25/2022 Office Visit ENT Charo Burton MD 909 [place], [place] 363285 (Wo rk) 10/25/2022 Office Visit ENT Provider, Jeannette Ent Dysphonia Product Development Assistant 10/25/2022 Virtual Visit Pain & [place] [address] [place], [place] [address] 10/28/2022 Appointment Speech Therapy Anabel Chew, BACKUP OPERATOR [address] 921515 (Wo rk) 11/17/2022 Appointment Speech Therapy Anabel Chew, BACKUP OPERATOR [address] 553315 (Wo rk) 12/01/2022 Office Visit Pain & [place] [address] [place], [place] [address] (Wo rk) 12/23/2022 Office Visit Neurology Colby Yeung MD [address] [place] [address]85 (Wo rk) documented as of this encounter Visit Diagnoses Not on filedocumented in this encounter Additional Health Concerns Assessment Noted Time PHQ-9 Depression Total Score: 15 2022 7:02 AM CD T documented as of this encounter Care Teams Master Hearth Technician Relationship Specialty Start Date End Date Aydee Burton, PCP - General Nurse Practitioner - 05/17/21 DRAWING SUPERVISOR MACHINE SHORTHAND REPORTER Family [address] [place] [address] [phone] Aydee Burton, Assigned PCP 04/28/21 DRAWING SUPERVISOR [address] [phone] Louisa Hood, Assigned Neuroscience 07/11/21 DRAWING SUPERVISOR MACHINE SHORTHAND REPORTER Provider 500 [place], [place] 588065 Se Lvey, Lead Managing Manager 08/05/21 05/12/22 CLIENT HR MANAGER Clari Ruiz Pharmacist Pharmacist 08/06/21 06/07/22 [facility] [address] [place], [place] [address] [place], Assigned Sleep 08/01/21 Angel Turcios, Provider [address] [place], [place] [address] Lesly Celaya MD Assigned Surgical 09/05/21 [address] Provider [place], [place] 4[address] Tawana Patel MA [facility] 09/30/21 Worker Ramses Mcpherson Assigned OBGYN 11/07/21 MD Onesimo Provider [address] [place], [place] [address] Obdulio Barrera MD Critical Care 01/24/[address] [place] [address] Obdulio Barrera, Assigned Pulmonology 02/06/[address] 053[address] Mago Swift, [facility] Lead Managing Manager Extrusion Operator - 08/05/21 Clinical documented as of this encounter
--- OUTSIDE RECORDS SUMMARY | 2022-10-21 08:58 | XMS_ITS | Encounter Summary ---
:1980 Author Organization [place] Address [address] [place] [address] Care Team Providers Name Role Phone Aydee Burton PEDIATRICS TEACHER METALLURGICAL TESTER Primary Care Provider Aydee Burton PEDIATRICS TEACHER METALLURGICAL TESTER Unavailable [phone] Louisa Hood PEDIATRICS TEACHER METALLURGICAL TESTER Unavailable [phone] Se Levy TRANSFORMER MOLDER Unavailable Unavailable Clari Ruiz [facility] Unavailable [phone] Angel Hannah MD Unavailable Lesly Celaya MD Unavailable Tawana Patel MA Unavailable Unavailable Ramses Mcpherson MD Unavailable [phone] Obdulio Barrera MD Unavailable [phone] Mago Swift HIM CLERK Unavailable Reason for Visit Reason Comments Mouth/Lip Problem 42 yo F presents with the fo llowing complaint nurse line instructedPt to be seen for thrush onset T-1 worsening Encounter Details Date Type Department Care Team Description 02/05/2022 Office Visit [facility] Nancy Scherer, Hannah h (Primary Dx) Urgent Care Lu webster PA-C [address] [address] [facility] [phone] [place] [address] [place], [place] [address] Social History Tobacco Use Types Packs/Day Years [...] How often do you attend synagogue or restoration services? Never 08/05/2021 Do you [...] at Date Recorded Female 11/09/2021 7:53 PM SHOOTER'S HELPER COVID-19 Exposure Response Date Recorded In [...] 10/21/2022 Office Visit Pulmonology Obdulio Barrera MD [address] [place] [address] (Wo rk) 10/25/2022 PRE VISIT ENT Charo Burton MD Previsit [address] [place] [address] [phone] (Wo rk) 10/25/2022 Office Visit ENT Charo Burton MD [address] [place] [address] 788415 (Wo rk) 10/25/2022 Office Visit ENT Provider, Ent Dysphonia Slag Motor Operator 10/25/2022 Virtual Visit Pain & Palliative [place] [address] [place], [place] [address] 10/28/2022 Appointment Speech Therapy Anabel Chew, LICENSED SOCIAL WORKER [address] 096565 (Wo rk) 11/17/2022 Appointment Speech Therapy Anabel Chew, LICENSED SOCIAL WORKER [address] 446875 (Wo rk) 12/01/2022 Office Visit Pain & [place] [address] [place], [place] [address] (Wo rk) 12/23/2022 Office Visit Neurology Colby Yeung MD [address] [place] 465315 (Wo rk) documented as of this encounter Visit Diagnoses Diagnosis Thrush - Primary Candidiasis of mouth documented in this encounter Additional Health Concerns Assessment Noted Time PHQ-9 Depression Total Score: 15 2022 7:02 AM CD T documented as of this encounter Care Teams Beef Splitter Relationship Specialty Start Date End Date Aydee Burton, PCP - General Nurse Practitioner - 05/17/21 PEDIATRICS TEACHER METALLURGICAL TESTER Family [address] [place], [place] [address] Aydee Burton, Assigned PCP 04/28/21 PEDIATRICS TEACHER METALLURGICAL TESTER [address] [place], [place] [address] Louisa Hood, Assigned Neuroscience 07/11/21 PEDIATRICS TEACHER METALLURGICAL TESTER Provider 500 [place], [place] 498905 Se Levy, Lead Director Child 08/05/21 05/12/22 TRANSFORMER MOLDER Clari Ruiz Pharmacist Pharmacist 08/06/21 06/07/22 [facility] [address] [place], [place] [phone] [place], Assigned Sleep 08/01/21 Angel Turcios, Provider [address] [place], [place] [address] Lesly Celaya MD Assigned Surgical 09/05/21 [address] Provider [place], [place] [address] Tawana Patel [facility] 09/30/21 Worker Ramses Mcpherson Assigned OBGYN 11/07/21 MD Onesimo Provider [address] [place], [place] [address] Obdulio Barrera MD Critical Care 01/24/22 420 [facility] 276 [place], [place] [address] Mago Swift, [facility] Lead Director Child Chief Internal Auditor - 08/05/21 Clinical documented as of this encounter
--- OUTSIDE RECORDS SUMMARY | 2022-10-21 08:58 | XMS_ITS | Encounter Summary ---
:1980 Author Organization [place] Address [address] [place] [address] Care Team Providers Name Role Phone Aydee Burton TOURIST GUIDE WAREHOUSE ORDER PICKER Primary Care Provider [phone] Aydee Burton TOURIST GUIDE WAREHOUSE ORDER PICKER Unavailable [phone] Louisa Hood TOURIST GUIDE WAREHOUSE ORDER PICKER Unavailable [phone] Se Levy COMPANY MARKER Unavailable Unavailable Clari Ruiz [facility] Unavailable [phone] Angel Hannah MD Unavailable Lesly Celaya MD Unavailable Tawana Patel MA Unavailable Unavailable Ramses Mcpherson MD Unavailable [phone] Obdulio Barrera MD Unavailable [phone] Mago Swift LABOR UNION BUSINESS REPRESENTATIVE Unavailable Encounter Details Date Type Department [...] How often do you attend lutheran or restorationist services? Never 08/05/2021 Do you [...] at Date Recorded Female 11/09/2021 7:53 PM PHERESIS NURSE COVID-19 Exposure Response Date Recorded In the last month, have you been in contact with No / Unsure 02/05/2022 12:58 PM CDT someone who was confirmed or suspected to have Coronavirus / COVID-19? documented as of this encounter Plan of Treatment Upcoming Encounters Date Type Specialty Care Team Description 10/21/2022 Office Visit Pulmonology Obdulio Barrera MD [address] [address] (Wo rk) 10/25/2022 PRE VISIT Charo Carter MD Previsit 909 [place] [address] (Wo rk) 10/25/2022 Office Visit Charo Carter MD 9 [place] [address] (Wo rk) 10/25/2022 Office Visit ENT Provider, Jeannette Ent Dysphonia Community Outreach Specialist 10/25/2022 Virtual Visit Pain & [place]iative [place] [address] [place], [place] [address] 10/28/2022 Appointment Speech Therapy Anabel Chew, PHARMACEUTICAL PROCESS ENGINEER [address] 707[address] (Wo rk) 11/17/2022 Appointment Speech Therapy Anabel Chew, PHARMACEUTICAL PROCESS ENGINEER [address] 093825 (Wo rk) 12/01/2022 Office Visit [place] & [place] [address] [place], [place] [address] (Wo rk) 12/23/2022 Office Visit Neurology Colby Yeung MD [address] [place] [address]955 (Wo rk) documented as of this encounter Visit Diagnoses Not on filedocumented in this encounter Additional Health Concerns Assessment Noted Time PHQ-9 Depression Total Score: 15 2022 7:02 AM CD T documented as of this encounter Care Teams Class B Truck Driver Relationship Specialty Start Date End Date Aydee Burton, PCP - General Nurse Practitioner - 05/17/21 TOURIST GUIDE WAREHOUSE ORDER PICKER Family [address] [place] [address] [phone] Aydee Burton, Assigned PCP 04/28/21 TOURIST GUIDE [facility] [address] [place] [address] [phone] Louisa Hood, Assigned Neuroscience 07/11/21 TOURIST GUIDE WAREHOUSE ORDER PICKER Provider [address] [place] [address] Se Levy, Lead Intelligence Director 08/05/21 05/12/22 [facility] Clari Ruiz Pharmacist Pharmacist 08/06/21 06/07/22 Jocelyn, [facility] [address] [place] [address] [place], Assigned Sleep 08/01/21 Angel Turcios, Provider [address] [place] [address] Lesly Celaya MD Assigned Surgical 09/05/21 [address] Provider [place], [place] [phone] Tawana Patel MA [facility] 09/30/21 Worker Ramses Mcpherson Assigned OBGYN 11/07/21 MD Onesimo Provider [address] [place] [address] Obdulio Barrera MD Critical Care 01/24/22 420 [facility] 276 [place], [place] [phone] Mago Swift, [facility] Lead Intelligence Director Epidemiologist - 08/05/21 Clinical documented as of this encounter
--- OUTSIDE RECORDS SUMMARY | 2022-10-21 08:58 | XMS_ITS | Encounter Summary ---
:1980 Author Organization [facility] Address [address] [place] [address] Care Team Providers Name Role Phone Aydee Burton NATURAL RESOURCES ENGINEER FOOD CHECKER Primary Care Provider Aydee Burton NATURAL RESOURCES ENGINEER FOOD CHECKER Unavailable [phone] Louisa Hood NATURAL RESOURCES ENGINEER FOOD CHECKER Unavailable [phone] Se Levy STITCHING MACHINE SETTER Unavailable Unavailable Clari Ruiz [facility] Unavailable [phone] Angel Hannah MD Unavailable Lesly Celaya MD Unavailable Tawana Patel MA Unavailable Unavailable Ramses Mcpherson MD Unavailable [phone] Obdulio Barrera MD Unavailable [phone] Obdulio Barrera MD Unavailable [phone] Mago Swift GAS LINE SERVICER Unavailable Reason for Visit Pain Consult (Routine: Next available opening) - Closed Specialty Diagnoses / Procedures Referred By Contact Refer red To Contact Diagnoses Bilateral occipital neuralgia Upper back pain Chronic tension-type headache, not intractable Lucas Anaya [facility] MD [facility] [address] [place] [address] [place] [address] Phone: Referral ID Status Reason Start Date Expiration Date Visits Requ ested Visits Authorized [id number] Closed 11/10/2021 11/10/2022 1 1 Encounter Details Date Type Department Care Team Description 02/15/2022 [facility] Bil ateral occipital neuralgia; Pain Management PhD Upper back pain; [place] [address] Chronic tension-type headache, not intra ctable [address] [place], [place] [address] [address] [place] [id number] [phone] Social History Tobacco Use Types Packs/Day Years [...] How often do you attend hindu or confucianism services? 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/2021 7:53 PM IT CONSULTING MANAGER COVID-19 Exposure Response Date Recorded In [...] part of the evaluation process at the [facility]. PAIN DIAGNOSES per pain [...] their head. They were previously seen at [facility] and diagnosed with occipital neuralgia. They've also have a long standing history of upper back and neck pain which is worsened with repeated activity. ?? This has been going on for years and started worsening about a year ago. These symptoms have worsened since their left upper extremity injury. ?? 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 If they're at the [employer], then their arm pain starts toflare-up. ? [...] working SOCIAL HISTORY: Patient currently resides: in [place] with 4 children Patient child/aria: 8, one [...] about use, or ever had an eye punch molder) were asked of the patient to determine [...] a virtual health and behavioral evaluation (billed 73144). The limits ofconfidentiality and mandated reporting requirements were discussed. Time spent with patient: 41 minutes in virtual patient contact for a psychological diagnostic assessment and pain evaluation. Video-Visit Details Type of service: Video Visit Video End Time (time video stopped): 1:41 PM Originating Location (pt. Location): Home Distant Location (provider location): [facility] Mode of Communication: Video Conference via [facility] Marilia Deluna PsyD LP Licensed Psychologist Outpatient Clinic Therapist [facility] Pain Management documented in this encounter Plan of Treatment Upcoming Encounters Date Type Specialty Care Team Description 10/21/2022 Office Visit Pulmonology HollyObdulio moyer MD [address] [place] [address] (Wo rk) 10/25/2022 PRE VISIT ENT Charo Burton MD Previsit [address] [place] [address] [phone] (Wo rk) 10/25/2022 Office Visit ENT Charo Burton MD [address] [place] [address] 105755 (Wo rk) 10/25/2022 Office Visit ENT Provider, Ent Dysphonia Weaving Supervisor 10/25/2022 Virtual Visit Pain & [place]iative [place] [address] [place], [place] [address] 10/28/2022 Appointment Speech Therapy Anabel Chew, ICT PROGRAMMER [address] [phone] (Wo rk) 11/17/2022 Appointment Speech Therapy Anabel Chew, ICT PROGRAMMER [address] 686395 (Wo rk) 12/01/2022 Office Visit Pain & [place] [address] [place], [place] [address] (Wo rk) 12/23/2022 Office Visit Neurology Colby Yeung MD [address] [place] [address]85 (Wo rk) documented as of this encounter Procedures Procedure Name Priority Date/Time Associated Diagnosis Comme nts [facility] Routine 02/15/2022 1:45 PM CDT [...] documented as of this encounter Care Teams Cost Estimating Engineer Relationship Specialty Start Date End Date Aydee Burton, PCP - General Nurse Practitioner - 05/17/21 NATURAL RESOURCES ENGINEER FOOD CHECKER Family [address] [place], [place] [phone] Aydee Burton, Assigned PCP 04/28/21 NATURAL RESOURCES ENGINEER FOOD CHECKER [address] [place] [address] Louisa Hood, Assigned Neuroscience 07/11/21 NATURAL RESOURCES ENGINEER FOOD CHECKER Provider [address] [place], [place] [phone] Se Levy, Lead Line Production Cook 08/05/21 05/12/22 STITCHING MACHINE SETTERClari Ordonez Pharmacist Pharmacist 08/06/21 06/07/22 Jocelyn, [facility] [address] [place] [address] [place], Tone Sleep 08/01/21 Angel Turcios, Provider [address] [place] [address] Lesly Celaya MD Assigned Surgical 09/05/21 [address] Provider [place], [place] [phone] Tawana Patel MA [facility] 09/30/21 Worker Ramses Mcpherson Assigned OBGYN 11/07/21 MD Onesimo Provider [address] [place], [place] [phone] Obdulio Barrera MD Critical Care 01/24/[address] [id number] Obdulio Barrera, Assigned Pulmonology 02/06/22 MD Provider [address] 162695 Mago Swift, [facility] Lead Line Production Cook Drying Machine Receiver - 08/05/21 Clinical documented as of this encounter
--- OUTSIDE RECORDS SUMMARY | 2022-10-21 08:58 | XMS_ITS | Encounter Summary ---
:1980 Author Organization [facility] Address [address] [place] [address] Care Team Providers Name Role Phone Aydee Burton AUTOMATIC MOLD SANDER CATEGORY DIRECTOR Primary Care Provider [phone] Aydee Burton AUTOMATIC MOLD SANDER CATEGORY DIRECTOR Unavailable [phone] Louisa Hood AUTOMATIC MOLD SANDER CATEGORY DIRECTOR Unavailable [phone] Se Levy [facility] Unavailable Unavailable Clari Ruiz [facility] Unavailable [phone] Angel Hannah MD Unavailable Lesly Celaya MD Unavailable Tawana Patel MA Unavailable Unavailable Ramses Mcpherson MD Unavailable [phone] Obdulio Barrera MD Unavailable [phone] Obdulio Barrera MD Unavailable [phone] Lesvia Stanley Unavailable Marilia Deluna PhD Unavailable Niyah Decker [facility] Unavailable Clari Poole [facility] Unavailable Lesvia Stanley Unavailable JosephClari jay [facility] Unavailable Israkb Niyah Caor RN Unavailable Austin Delia Mel [facility] Unavailable [phone] Mandt, Delia Mel RPH Unavailable [phone] Schweivictorino Niyah Caro [facility] Unavailable JamisonMago [facility] Unavailable SchweiNiyah gleason [facility] Unavailable EvertonLeela davis [facility] Unavailable SchwNiyah grossman [facility] Unavailable Marvin Miranda MD Unavailable Marvin Miranda MD Unavailable JosephClari [facility] Unavailable [phone] Reason for Visit Reason Onset Date Comments Refill Request 02/12/2022 Encounter Details Date Type Department Care Team Description 02/12/2022 [facility] Aydee Burton, Refill Request [address] [address] [place], [place] [phone] (Wo rk) [address] [phone] Social History Tobacco Use Types Packs/Day Years [...] How often do you attend voodoo or christianity services? 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/2021 7:53 PM ASSOCIATE DEAN OF WOMEN COVID-19 Exposure Response Date Recorded In the [...] provider's last note. Carolyn Alejandro RN, BSN [facility] Triage documented in this encounter Plan of Treatment Upcoming Encounters Date Type Specialty Care Team Description 10/21/2022 Office Visit Pulmonology Obdulio Barrera MD [address] [place] [address] (Wo rk) 10/25/2022 PRE VISIT ENT Charo Burton MD Previsit [address] [place] [address] 636365 (Wo rk) 10/25/2022 Office Visit ENT Charo Burton MD [address] [place] [address] [phone] (Wo rk) 10/25/2022 Office Visit ENT Provider, Ent Dysphonia Predatory Animal Trapper 10/25/2022 Virtual Visit Pain & [place]iative [place] [address] [place], [place] [address] 10/28/2022 Appointment Speech Therapy Anabel Chew, INTERNATIONAL TRADE SPECIALIST [address] 018845 (Wo rk) 11/17/2022 Appointment Speech Therapy Anabel Chew, INTERNATIONAL TRADE SPECIALIST [address] 345075 (Wo rk) 12/01/2022 Office Visit Pain & [place] [address] [place], [place] [address] (Wo rk) 12/23/2022 Office Visit Neurology Colby Yeung MD [address] [place] 6[address]15 (Wo rk) documented as of this encounter Visit Diagnoses Diagnosis PTSD (post-traumatic stress disorder) - Primary Posttraumatic stress disorder Chest pain, unspecified type Chest tightness Other chest pain Anxiety Anxiety state, unspecified documented in this encounter Additional Health [...] documented as of this encounter Care Teams Brim And Crown Presser Relationship Specialty Start Date End Date Aydee Burton PCP - General Nurse Practitioner - 05/17/21 ELADIO Mendez CATEGORY DIRECTOR Family [address] [place] [address] [phone] Aydee Burton Assigned PCP 04/28/21 ELADIO Mendez CATEGORY DIRECTOR [address] [place] [address] [phone] Louisa Hood Assigned Neuroscience 07/11/21 ELADIO Recinos CATEGORY DIRECTOR Provider [address] [place], [place] [phone] Se Levy, Lead Credit Rating Checker 08/05/21 05/12/22 Clari Francois Pharmacist Pharmacist 08/06/21 06/07/22 [facility] [address] [place] [address] [place], Assigned Sleep 08/01/21 Angel Turcios, Provider [address] [place] [address] Lesly Celaya MD Assigned Surgical 09/05/21 [address] [place] [address] [facility] 09/30/21 MA Worker Ramses Mcpherson Assigned OBGYN 11/07/21 MD Onesimo Provider [address] [place] [address] Obdulio Barrera MD Critical Care 01/24/22 MD Leo 420 [facility] [address] [place], [place] [address] Obdulio Barrera Assigned Pulmonology 02/06/22 MD Leo Provider 420 [facility] [address] [place], [place] [address] Lesvia Stanley, Cardiac Rehabilitation 03/03/22 03/03/23 EP Therapist [facility] [address] [place] [address] Marilia Deluna, Assigned Behavioral 02/20/22 [facility] Provider [address] [place] [address] Niyah Decker, [facility] Pharmacist Pharmacist 03/07/22 420 [facility] [address] [place], [place] [address] Clari Poole, Pharmacist Pharmacist 03/07/22 06/15/22 [facility] [address] [facility] [address] [place] [phone] Lesvia Stanley, Cardiac Rehabilitation 03/17/22 03/17/23 EP Therapist [facility] [address] [place] [place] [address] Clari Ruiz Assigned MTM 04/09/22 05/27/22 Jocelyn [facility] Pharmacist [address] [place] [address] Niyah Warner, Lead Credit Rating Checker Primary Care - CC 06/27/22 RN Delia Avila Pharmacist Pharmacist 06/07/22 Mel [facility] [address] [place] [address] Delia Avila Assigned MTM 06/11/22 06/24/22 Mel [facility] Pharmacist [address] [place], [place] [address] Niyah Decker, [facility] Assigned MTM 05/28/22 06/10/22 420 [facility] Pharmacist [address] [place], [place] [address] Mago Swift, Lead Credit Rating Checker Opto Mechanical Engineer - 08/05/21 [facility] Clinical Niyah Decker, [facility] Assigned MTM 06/25/22 07/29/22 420 [facility] Pharmacist [address] [place], [place] [address] Leela Jarvis, [facility] Pharmacist 07/26/22 05/15/23 [address] [facility] [address] [place] [phone] Niyah Decker, [facility] Assigned MTM 08/10/22 09/16/22 420 [facility] Pharmacist [address] [place], [place] [address] Marvin Miranda MD Gastroenterology 09/21/[address] [place] [address] [address] [place], [place] [address] Marvin Miranda, Assigned 10/01/22 Gastroenterology [address] [facility] Provider [address] [place], [place] [address] Clari Ruiz Assigned MTM 09/17/22 Jocelyn [facility] Pharmacist [address] [place], [place] [phone] documented as of this encounter
--- OUTSIDE RECORDS SUMMARY | 2022-10-21 08:59 | XMS_ITS | Encounter Summary ---
:1980 Author Organization [facility] Address [address] [place] [address] Care Team Providers Name Role Phone Aydee Burton ACCOUNT RELATIONSHIP MANAGER REJOGGER Primary Care Provider [phone] Aydee Burton ACCOUNT RELATIONSHIP MANAGER REJOGGER Unavailable [phone] Louisa Hood ACCOUNT RELATIONSHIP MANAGER REJOGGER Unavailable [phone] Se Levy SENIOR PROJECT MANAGER ENGINEERING Unavailable Unavailable Clari Ruiz [facility] Unavailable [phone] Angel Hannah MD Unavailable Lesly Celaya MD Unavailable Tawana Patel MA Unavailable Unavailable Ramses Mcpherson MD Unavailable [phone] Mago Swift ELECTRIC MOTOR MECHANIC Unavailable Reason for Referral CV Testing (Routine) - Closed Specialty Diagnoses / Procedures Referred By Contact Refer red To Contact Diagnoses Chest pain, unspecified type Wheezing Pulmonary air trapping Aydee Burton APRN Procedures Leadless repair manager 8 to 14 Days ZZHC EXT ECG > 48HR TO 21 DAY RCRD W/CONECT INTL RCRD ZZC EXT ECG > 48HR TO 21 DAY REVIEW AND INTERPRETATN NY EXT ECG > 48HR TO 21 DAY RCRD W/CONECT INTL RCRD REJOGGER NY EXT ECG > 48HR TO 21 DAY REVIEW AND INTERPRETATN HC EXT ECG > 48HR TO 21 DAY RCRD W/CONECT INTL RCRD [address] [place] [address] Referral ID Status Reason Start Date Expiration Date Visits Requ ested Visits Authorized [id number] Closed 01/19/2022 01/19/2023 1 1 GY PROJECT MANAGER Reason for Visit CV Testing (Routine) - Closed Specialty Diagnoses / Procedures Referred By Contact Refer red To Contact Diagnoses Chest pain, unspecified type Wheezing Pulmonary air trapping Aydee Burton APRN Procedures Leadless repair manager 8 to 14 Days ZZHC EXT ECG > 48HR TO 21 DAY RCRD W/CONECT INTL RCRD ZZC EXT ECG > 48HR TO 21 DAY REVIEW AND INTERPRETATN NY EXT ECG > 48HR TO 21 DAY RCRD W/CONECT INTL RCRD REJOGGER NY EXT ECG > 48HR TO 21 DAY REVIEW AND INTERPRETATN HC EXT ECG > 48HR TO 21 DAY RCRD W/CONECT INTL RCRD [address] [place] [address] Referral ID Status Reason Start Date Expiration Date Visits Requ ested Visits Authorized [id number] Closed 01/19/2022 01/19/2023 1 1 Encounter Details Date Type Department Care Team Description 01/20/2022 Hospital Encounter [facility] Aydee Burton Ches t pain, unspecified type; [facility] ELADIO Mendez Wheezing; Heart Care REJOGGER Pulmonary air trapping [address] [place] [address] [place] [address] [address] [place] [address] [phone] Social History Tobacco Use Types Packs/Day Years [...] How often do you attend tenriism or holiness services? Never 08/05/2021 Do you [...] at Date Recorded Female 11/09/2021 7:53 PM ENERGY PROJECT MANAGER COVID-19 Exposure Response Date Recorded In the last month, have you been in contact with No / Unsure 01/20/2022 1:55 PM ENERGY PROJECT MANAGER someone who was confirmed or suspected [...] by mouth 0 60 MG capsule daily QUEtiapine (SEROQUEL) Take 100 mg by [...] 90 tablet 1 03/0 12/202105/14/2022 500 MG (500-750 mg) by mouth tabletIndications: 3 times daily as Chronic myofascial needed for muscle pain, Trigger point of spasms shoulder region, unspecified laterality ondansetron Take 1 tablet (4 mg) 12 tablet 0 01/14/202211/2021 (ZOFRAN-ODT) 4 MG ODT by mouth every 8 hours tabIndications: S/P as needed for nausea laparoscopic hysterectomy predniSONE (DELTASONE) Take two tablets (= 10 tablet 0 /0 02/202201/24/2022 20 MG tablet 40mg) each day for 5 (five) days documented as of this encounter Progress Notes Carolyn Khan - 01/20/2022 2:14 PM CST Ziopatch was applied for 14 days. Written and verbal instructions were given. GY PROJECT MANAGER documented in this encounter Miscellaneous Notes Result Encounter Note - Aydee Burton APRN CNP - 01/20/2022 11:59 PM CST Dear Marta, Here is a summary of your recent test results: Great news. You have a normal library monitor. For additional lab test information, [email or web address] is an excellent reference. In addition, here is a list of due or overdue Health Maintenance reminders: There are no preventive care reminders to display for this patient. Please call us at [phone] (or use [place]) to address the above recommendations if needed. Thank you for choosing [facility]. It was an honor and a privilege to participate in your care. Healthy regards, TARA Spivey [facility] documented in this encounter Plan of Treatment Upcoming Encounters Date Type Specialty Care Team Description 10/21/2022 Office Visit Pulmonology AustinObdulio moyer MD [address] [address] (Wo rk) 10/25/2022 PRE VISIT ENT Charo Burton MD Previsit [address] [place] [address] (Wo rk) 10/25/2022 Office Visit Charo Carter MD [address] [place] [address]605 (Wo rk) 10/25/2022 Office Visit ENT Provider, Ent Dysphonia Security Compliance Specialist 10/25/2022 Virtual Visit Pain & [place]iative [place] [address] [place], [place] [address] 10/28/2022 Appointment Speech Therapy Anabel Chew, DENTAL AIDE [address] [place], [place] [address] (Wo rk) 11/17/2022 Appointment Speech Therapy Anabel Chew, DENTAL AIDE [address] [place], [place] [address] (Wo rk) 12/01/2022 Office Visit Pain & [place] [address] [place], [place] [address] (Wo rk) 12/23/2022 Office Visit Neurology Colby Yeung MD [address] [place] [address] (Wo rk) documented as of this encounter Procedures Procedure Name Priority Date/Time Associated Diagnosis Comme nts LEADLESS FOREIGN LANGUAGE TEACHER Routine 01/20/2022 2:14 PM Chest pain, R esults for this APPLICATION AND ENERGY PROJECT MANAGER unspecified type procedure are in INTERP 8 TO 14 DAYS Wheezing the results Pulmonary air section. trapping documented in this encounter Results LEADLESS FOREIGN LANGUAGE TEACHER APPLICATION AND INTERP 8 TO 14 DAYS (01/20/2022 2:14 PM ENERGY PROJECT MANAGER) Anatomical Region Laterality Modality Other Specimen (Source) Anatomical Location Collection Method / Collectio n Time Received Time / Laterality Volume Narrative This result has an attachment that is no t available. Aydee Burton ACCOUNT RELATIONSHIP MANAGER REJOGGER [facility] PRASHANTH CORDERO documented in this encounter Visit Diagnoses Diagnosis Chest pain, unspecified type Wheezing Pulmonary air trapping documented in this encounter Additional Health Concerns Assessment Noted Time PHQ-9 Depression Total Score: 22 06/28/2021 7:03 AM CD T documented as of this encounter Care Teams Bread Supervisor Relationship Specialty Start Date End Date Aydee Burton, PCP - General Nurse Practitioner - 05/17/21 ACCOUNT RELATIONSHIP MANAGER REJOGGER Family [address] [place], [place] [phone] Aydee Burton, Assigned PCP 04/28/21 ACCOUNT RELATIONSHIP MANAGER REJOGGER [address] [place] [phone] Louisa Hood, Assigned Neuroscience 07/11/21 ACCOUNT RELATIONSHIP MANAGER REJOGGER Provider [address] [place] [address] Se Levy, Lead Community Relations Officer 08/05/21 05/12/22 Clari Francois Pharmacist Pharmacist 08/06/21 06/07/22 Jocelyn [facility] [address] [place], [place] [phone] [place], Assigned Sleep 08/01/21 Angel Turcios, Provider [address] [place] [address] Lesly Celaya MD Assigned Surgical 09/05/21 [address] Provider [place] [employer], [place] [phone] Tawana Patel MA [facility] 09/30/21 Worker Ramses Mcpherson Assigned OBGYN 11/07/21 MD Onesimo Provider [facility] [address] Mago Swift, [facility] Lead Community Relations Officer Silo Worker - 08/05/21 Clinical documented as of this encounter
--- OUTSIDE RECORDS SUMMARY | 2022-10-21 08:59 | XMS_ITS | Encounter Summary ---
:1980 Author Organization [facility] Address [address] [place] [address] Care Team Providers Name Role Phone Aydee Burton FORM TAMPER OPERATOR CLINICAL QUALITY RN Primary Care Provider Aydee Burton FORM TAMPER OPERATOR CLINICAL QUALITY RN Unavailable [phone] Louisa Hood FORM TAMPER OPERATOR CLINICAL QUALITY RN Unavailable [phone] Se Levy GED INSTRUCTOR Unavailable Unavailable Clari Ruiz [facility] Unavailable [phone] Angel Hannah MD Unavailable Lesly Celaya MD Unavailable Tawana Patel MA Unavailable Unavailable Ramses Mcpherson MD Unavailable [phone] Obdulio Barrera MD Unavailable [phone] Mago Swift DEMONSTRATOR KNITTING Unavailable Encounter Details Date Type Department Care Team Description 01/31/2022 Allied Health/Nurse [facility] SOB (shortness of Visit Specialty Clinic Jaquan na breath) [address] [facility] [address] [place] [address] Social History Tobacco Use Types [...] How often do you attend jain or advent services? 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/2021 7:53 PM BOX STAMPER COVID-19 Exposure Response Date Recorded In the last month, have you been in contact with No / Unsure 01/31/2022 7:56 AM CDT someone who was confirmed or suspected to have Coronavirus / COVID-19? documented as of this encounter Plan of Treatment Upcoming Encounters Date Type Specialty Care Team Description 10/21/2022 Office Visit Pulmonology Obdulio Barrera MD [address] [place] [address] (Wo rk) 10/25/2022 PRE VISIT ENT Charo Burton MD Previsit [address] [place] [address] [phone] (Wo rk) 10/25/2022 Office Visit ENT Charo Burton MD [address] [place], [place] [address] (Wo rk) 10/25/2022 Office Visit ENT Provider, Ent Dysphonia Coordinator Of Placement 10/25/2022 Virtual Visit Pain & [place] [address] [place], [place] [address] 10/28/2022 Appointment Speech Therapy Anabel Chew, SUPERVISOR [employer]SE [address] 518705 (Wo rk) 11/17/2022 Appointment Speech Therapy Anabel Chew, SUPERVISOR MALT HOUSE [address] 705905 (Wo rk) 12/01/2022 Office Visit Pain & [place] [address] [place], [place] [address] (Wo rk) 12/23/2022 Office Visit Neurology Colby Yeung MD [address] [place] [place] [phone] (Wo rk) documented as of this encounter Procedures Procedure Name Priority Date/Time Associated Comments Diagnosis KS DIFFUSING CAPACITY Routine 01/31/2022 8:48 SOB (shortness o f AM CDT breath) KS PLETHYSMOGRAPHY LUNG Routine 01/31/2022 8:48 SOB (shortness of VOLUMES W/WO AIRWAY AM CDT breath) RESIST KS RESPIRATORY FLOW Routine 01/31/2022 8:48 SOB (shortness of VOLUME LOOP AM CDT breath) KS VITAL CAPACITY TOTAL Routine 01/31/2022 8:48 SOB [...] BREEZE PFT FEV1-%Pred-Pre 90 % BREEZE PFT [id number]-Yyiv 82 % BREEZE PFT [id number]-Kzw 84 % BREEZE PFT FEFMax-Pred 7.24 L/sec BREEZE PFT FEFMax-Pre 5.96 L/sec BREEZE PFT FEFMax-%Pred-Pr 82 % BREEZE PFT e [id number]-Veas 3.30 L/sec BREEZE PFT [id number]-Dte 3.50 L/sec BREEZE PFT AAK6835-%Pred-P 105 % BREEZE PFT re ExpTime-Pre 6.35 sec BREEZE PFT FIFMax-Pre 4.33 L/sec BREEZE PFT VC-Pred 3.91 L BREEZE PFT VC-Pre 3.65 L BREEZE PFT VC-%Pred-Pre 93 % BREEZE PFT IC-Pred 3.14 L BREEZE PFT IC-Pre 2.50 L BREEZE PFT IC-%Pred-Pre 79 % BREEZE PFT ERV-Pred 0.77 L BREEZE PFT ERV-Pre 1.15 L BREEZE PFT ERV-%Pred-Pre 149 % BREEZE PFT [id number]-Hnvs 84 % BREEZE PFT [id number]-Epa 84 % BREEZE PFT FRCPleth-Pred 2.78 L [...] BREEZE PFT VA-%Pred-Pre 91 % BREEZE PFT [id number]-Dujv 82 % BREEZE PFT LCN1CVS-Sge 79 % BREEZE PFT Specimen (Source) Anatomical [...] documented as of this encounter Care Teams Steward/Stewardess Third Relationship Specialty Start Date End Date Aydee Burton, PCP - General Nurse Practitioner - 7/5/21 FORM TAMPER OPERATOR CLINICAL QUALITY RN Family [address] [place], [place] [phone] Aydee Burton, Assigned PCP 04/28/21 FORM TAMPER OPERATOR CLINICAL QUALITY RN [address] [place], [place] [phone] Louisa Hood, Assigned Neuroscience 07/11/21 FORM TAMPER OPERATOR CLINICAL QUALITY RN Provider [address] [place], [place] [phone] Se Levy, Lead Human Resources Support Specialist 08/05/21 05/12/22 [facility] Clari Ruiz Pharmacist Pharmacist 08/06/21 06/07/22 Jocelyn, [facility] [address] [place] [address] [place], Assigned Sleep 08/01/21 Angel Turcios, Provider [address] [place], [place] [phone] Lesly Celaya MD Assigned Surgical 09/05/21 [address] [place] [place] [address] Tawana Patel MA [facility] Health 09/30/21 Worker Ramses Mcpherson Assigned OBGYN 11/07/21 MD Onesimo Provider [address] [place] [address] Obdulio Barrera MD Critical Care 01/24/22 420 [facility] 276 [place], [place] [phone] Mago Swift, [facility] Lead Human Resources Support Specialist Technical Support Analyst - 08/05/21 Clinical documented as of this encounter
--- OUTSIDE RECORDS SUMMARY | 2022-10-21 08:59 | XMS_ITS | Encounter Summary ---
:1980 Author Organization [facility] Address [address] [place] [address] Care Team Providers Name Role Phone Aydee Burton SPECIALIZED DEVELOPER COTTON CHOPPER Primary Care Provider [phone] Aydee Burton SPECIALIZED DEVELOPER COTTON CHOPPER Unavailable [phone] Louisa Hood SPECIALIZED DEVELOPER COTTON CHOPPER Unavailable [phone] Se Levy PLASTIC SURGERY COORDINATOR Unavailable Unavailable Clari Ruiz [facility] Unavailable [phone] Angel Hannah MD Unavailable Lesly Celaya MD Unavailable Tawana Patel MA Unavailable Unavailable Ramses Mcpherson MD Unavailable [phone] Mago Swift WOOD BUCKER Unavailable Encounter Details Date Type Department Care [...] How often do you attend mandaen or rastafarian services? Never 08/05/2021 Do you [...] at Date Recorded Female 11/09/2021 7:53 PM WOMEN'S APPAREL SALESPERSON COVID-19 Exposure Response Date Recorded In the last month, have you been in contact with No / Unsure 01/20/2022 1:55 PM WOMEN'S APPAREL SALESPERSON someone who was confirmed or suspected to have Coronavirus / COVID-19? documented as of this encounter Plan of Treatment Upcoming Encounters Date Type Specialty Care Team Description 10/21/2022 Office Visit Pulmonology Obdulio Barrera MD [address] [place] [address] (Wo rk) 10/25/2022 PRE VISIT Charo Carter MD Previsit [address] [place] [address] (Wo rk) 10/25/2022 Office Visit Charo Carter MD [address] [place] [address] (Wo rk) 10/25/2022 Office Visit ENT Provider, Jeannette Ent Dysphonia Backpackers Manager 10/25/2022 Virtual Visit Pain & [place] [address] [place], [place] [address] 10/28/2022 Appointment Speech Therapy Anabel Chew, MOTOR VEHICLE TECHNICIAN [address] [address] (Wo rk) 11/17/2022 Appointment Speech Therapy Anabel Chew, MOTOR VEHICLE TECHNICIAN [address] 322975 (Wo rk) 12/01/2022 Office Visit Pain & [place] [address] [place], [place] [address] (Wo rk) 12/23/2022 Office Visit Neurology Colby Yeung MD [address] [place] [address] (Wo rk) documented as of this encounter Visit Diagnoses Not on filedocumented in this encounter Additional Health Concerns Assessment Noted Time PHQ-9 Depression Total Score: 22 06/28/2021 7:03 AM CD T documented as of this encounter Care Teams Synchronizer Relationship Specialty Start Date End Date Aydee Burton, PCP - General Nurse Practitioner - 05/17/21 SPECIALIZED DEVELOPER COTTON CHOPPER Family [address] [place], [place] [phone] Aydee Burton, Assigned PCP 04/28/21 SPECIALIZED DEVELOPER COTTON CHOPPER [address] [place], [place] [phone] Louisa Hood, Assigned Neuroscience 07/11/21 SPECIALIZED DEVELOPER COTTON CHOPPER Provider [address] [place] [address] [place] [phone] Se Levy, Lead Coach Cleaner 08/05/21 05/12/22 Clari Francois Pharmacist Pharmacist 08/06/21 06/07/22 Jocelyn, [facility] [address] [place] [address] [place], Assigned Sleep 08/01/21 Angel Turcios, Provider [address] [place], [place] [address] Lesly Celaya MD Assigned Surgical 09/05/21 [address] Provider [place], [place] [address] Tawana Patel MA [facility] Health 09/30/21 Worker Ramses Mcpherson Assigned OBGYN 11/07/21 MD Onesimo Provider [address] [place], [place] [phone] Mago Swift [facility] Lead Coach Cleaner Shipping Order Clerk - 08/05/21 Clinical documented as of this encounter
--- OUTSIDE RECORDS SUMMARY | 2022-10-21 08:59 | XMS_ITS | Encounter Summary ---
:1980 Author Organization [facility] Address [address] [place] [address] Care Team Providers Name Role Phone Aydee Nam LICENSED PLUMBER MANAGER OF DEVELOPMENT Primary Care Provider [phone] Aydee Nam LICENSED PLUMBER MANAGER OF DEVELOPMENT Unavailable [phone] Louisa Hood LICENSED PLUMBER MANAGER OF DEVELOPMENT Unavailable [phone] Se Levy SUPPLY SERVICE WORKER Unavailable Unavailable Clari Ruiz [facility] Unavailable [phone] Angel Hannah MD Unavailable Lesly Celaya MD Unavailable Tawana Patel MA Unavailable Unavailable Ramses Mcpherson MD Unavailable [phone] Obdulio Barrera MD Unavailable [phone] Mago Swift MEDICAL ASSISTING PROGRAM DIRECTOR Unavailable Reason for Referral CV Testing (Priority: 1-2 Weeks) - Closed Specialty Diagnoses / Procedures Referred By Contact Refer red To Contact Diagnoses Chest pain, unspecified type Chest tightness SOB (shortness of breath) Pulmonary air trapping Wheezing Bronchospasm Aydee Nam APRN Procedures Echocardiogram Complete ZZHC TTE W/DOPPLER, COMPLETE ZZHC ECHO COMPLETE W DOPPLER W CONTRAST ZZHC ECHO COMPLETE W DOPPLER W/O CONTRAST ZZHC IV PUSH SINGLE, INITIAL SUBSTANCE ZZHC US GUIDE FOR PERICARDIOCENTESIS MANAGER OF DEVELOPMENT ZZHC ECHO MYOCARD BX ZZC INJECTION, PERFLUTREN LIPID MICROSPHERES, PER ML ZZHC STATISTIC IV PUSH SINGLE INITIAL SUBSTANCE GA ECHO MYOCARD BX GA INJECTION, PERFLUTREN LIPID MICROSPHERES, PER ML GA TTE W/DOPPLER, COMPLETE [address] [place] IV PUSH SINGLE, INITIAL S UBSTANCE GA TTE W/DOPPLER, COMPLETE GA TTE W/DOPPLER, COMPLETE HC US GUIDE FOR PERICARDIOCENTESIS HC ECHO MYOCARD BX HC IV PUSH SINGLE, INITIAL SUBSTANCE HC STATISTIC IV [place] [address] HC ECHO COMPLETE W DOPPLER W CONTRAST HC ECHO COMPLETE W DOPPLER W/O CONTRAST Referral ID Status Reason Start Date Expiration Date Visits Requ ested Visits Authorized [id number] Closed 01/24/2022 01/24/2023 1 1 Reason for Visit Reason Comments Shortness of Breath Encounter Details Date Type Department Care Team Description 01/24/2022 Office Visit [facility] Aydee Nam Chest pain , unspecified type (Primary Dx); [facility] [place] MANAGER OF DEVELOPMENT Chest tightness; [address] [facility] [address] [facility] SOB (s hortness of breath); [address] Pulmonary air trapping; [place] [address] Wheezing; [address] Bronchospasm; [phone] Medicatio n management; Acute bronchiti s with [...] How often do you attend jewish or mu-ism services? Never 08/05/2021 Do you [...] at Date Recorded Female 11/09/2021 7:53 PM PLODDING OPERATOR COVID-19 Exposure Response Date Recorded In [...] encounter Patient Instructions Patient InstructionsAydee Nam, ELADIO MANAGER OF DEVELOPMENT - 01/24/2022 10:50 AM CDT Images from [...] reviewed this educational content on 04/13/2018 ?? [id number] The [employer]. All rights reserved. This information is not [...] reviewed this educational content on 03/13/2018 ?? [phone] [employer], [employer]. All rights reserved. This information is not [...] Recheck with pulm. Aydee Nam APRN CNP [facility] Marta is a 41 year old [...] is taking medications regularly. ED/UC Followup: Facility: [facility] Emergency Dept Date of visit: 01/14/2022 [...] Status --------- ------ CBC with platelets and d...[[id number]] Final result Please view results for these [...] for this patient. Please call us at [phone] (or use Choister) to address the above recommendations if needed. Thank you for choosing [facility]. It was an honor and a privilege to participate in your care. Healthy regards, TARA Spivey [facility] documented in this encounter Plan of Treatment Upcoming Encounters Date Type Specialty Care Team Description 10/21/2022 Office Visit Pulmonology Obdulio Barrera MD [address] [place] [address] [phone] (Wo rk) 10/25/2022 PRE VISIT ENT Charo Burton MD Previsit [address] [place] [address] [phone] (Wo rk) 10/25/2022 Office Visit ENT Charo Burton MD [address] [place] [address] [phone] (Wo rk) 10/25/2022 Office Visit ENT Provider, Ent Dysphonia Log Stacker Operator 10/25/2022 Virtual Visit Pain & [place] [address] [place], [place] [address] 10/28/2022 Appointment Speech Therapy Anabel Chew, LUMBER PLANER [address] 7[address] (Wo rk) 11/17/2022 Appointment Speech Therapy Anabel Chew, LUMBER PLANER [address] 358975 (Wo rk) 12/01/2022 Office Visit Pain & [place] [address] [place], [place] [address] (Wo rk) 12/23/2022 Office Visit Neurology Colby Yeung MD [address] [place] [address] (Wo rk) documented [...] PM CDT Narrative 01/31/2022 4:37 PM CDT [id number]^CYRIL^AYDEE^LILIANA [facility] Echocardiography Laboratory [address] [place] [address] Name: MARTA HAWKINS : 1980 Study Date: 01/31/2022 03:57 PM Age: 42 yrs Gender: Female Patient Location: [facility] Reason For Study: Chest pain, [...] note might be different from the original. [id number]^CYRIL^AYDEE^[facility] Echocardiography Laboratory [address] [place] [address] Name: MARTA HAWKINS : 1980 Study Date: 01/31/2022 03:57 PM Age: 42 yrs Gender: Female Patient Location: [facility] Reason For Study: Chest pain, [...] Davis 0 01/31/2022 04:37 PM Aydee Nam LICENSED PLUMBER MANAGER OF DEVELOPMENT CV ECHO ORDERABLES CBC with platelets and [...] 11:59 AM CDT Unknown Aydee Nam APRN MANAGER OF DEVELOPMENT LAB - BLOOD ORDERABLES Performing Organization Address City/State/ZIP Code Phon e Number [place] [address] [facility] [address] [place] [address] S. E. Lab (no room number, 1st floor of clinic) [place] [address], [phone] [facility] [address] [place] [address] S. E. Lab (no room number, 1st floor of clinic) (ABNORMAL) Comprehensive metabolic panel (BMP + Alb, Alk Phos, ALT, AST, Total. Bili, TP) (01/24/2022 11:59 AM CDT) [facility] gist Method Time Signature Sodium 138 133 - [...] and gender (Yulia et al., NEJ, DOI: 10.1056/[id number]) Specimen Anatomical Collection Method / Collection Time Recei edil Time (Source) Location / Volume Laterality Blood STRUCTURE OF RIGHT Venipuncture / 01/24/2022 11:59 UPPER LIMB / Unknown AM CDT 11:59 AM CDT Unknown Aydee Nam APRN MANAGER OF DEVELOPMENT LAB - BLOOD ORDERABLES Performing Organization Address City/State/ZIP Code Phon e Number [facility] [place], [place] [phone] [facility] [address] [place] [address] Lab (no room number, 1st floor of clinic) [facility] [place], [place] [phone] [facility] [id number] [address] Lab (no room number, 1st floor of clinic) TSH with free T4 reflex (01/24/2022 11:59 AM CDT) P athologist Signature TSH 2.25 0.40 - 4.00 01/24/2022 [facility] mU/L 4:54 PM CDT Specimen Anatomical Collection Method / Collection Time Recei edil Time (Source) Location / Volume Laterality Blood STRUCTURE OF RIGHT Venipuncture / 01/24/2022 11:59 UPPER LIMB / Unknown AM CDT 11:59 AM CDT Unknown Aydee Nam APRN MANAGER OF DEVELOPMENT LAB - BLOOD ORDERABLES Performing Organization Address City/State/ZIP Code Phon e Number [facility] [place], [place] [phone] [facility] [phone] Lab (no room number, 1st floor of clinic) [facility] [place], [place] [phone] [facility] [address] [address] Lab (no room number, 1st floor of clinic) Lamotrigine Level (01/24/2022 11:59 AM CDT) P athologist Signature Lamotrigine 4.6 3.0 - 15.0 01/26/2022 [facility] ug/mL 12:43 AM CDT Comment: INTERPRETIVE INFORMATION: ??Lamotrigine Therapeutic Range: ??3.0-15.0 ug/mL ?Toxic: ??Greater than or equal to 20 ug/mL Pharmacokinetics varies widely, particul becki with co-medications and/or compromised renal function. ??Adverse effects may include dizziness, somnolenc e, nausea and vomiting. Performed By: [employer] [address] [place] [address] Nailhead Setter: Florence Naranjo MD Specimen Anatomical Collection Method / Collection Time Recei edil Time (Source) Location / Volume Laterality Blood STRUCTURE OF RIGHT Venipuncture / 01/24/2022 11:59 UPPER LIMB / Unknown AM CDT 11:59 AM CDT Unknown Aydee Nam APRN MANAGER OF DEVELOPMENT LAB - BLOOD ORDERABLES Performing Organization Address City/State/ZIP Code Phon e Number [facility] [place], [place] [phone] [address] [facility] [address] EKG 12-lead complete w/read - Clinics (01/24/2022 11:30 AM CDT) Narrative This result has an attachment that is no t available. Aydee Nam APRN [facility] ECG ORDERABLES documented in this encounter Visit [...] Pulmonary air trapping Wheezing Bronchospasm Acute bronchospasm documented in this encounter Additional Health Concerns Assessment Noted Time PHQ-9 Depression Total Score: 15 2022 7:02 AM CD T documented as of this encounter Care Teams Well Tender Relationship Specialty Start Date End Date Aydee Nam, PCP - General Nurse Practitioner - 05/17/21 LICENSED PLUMBER MANAGER OF DEVELOPMENT Family [address] [place], [place] [address] Aydee Nam, Assigned PCP 04/28/21 LICENSED PLUMBER MANAGER OF DEVELOPMENT [address] [place], [place] 8[address] Louisa Hood, Assigned Neuroscience 07/11/21 LICENSED PLUMBER MANAGER OF DEVELOPMENT Provider 500 [place], [place] [address] Se Levy, Lead Director Of Contracts 08/05/21 05/12/22 Clari Francois Pharmacist Pharmacist 08/06/21 06/07/22 Jocelyn [facility] 2450 [facility] [address] [place], [place] [phone] [place], Assigned Sleep 08/01/21 Angel Turcios, Provider [address] [place] [address] Lesly Celaya MD Assigned Surgical 09/05/21 [address] Provider [place], [place] [address] Tawana Patel MA [facility] 09/30/21 Worker Ramses Mcpherson Assigned OBGYN 11/07/21 MD Onesimo Provider [address] [place], [place] [address] Obdulio Barrera MD Critical Care 01/24/[address] [place] [address] 276 [place], [place] [address] Mago Swift, [facility] Lead Director Of Contracts Software Writer - 08/05/21 Clinical documented as of this encounter
--- OUTSIDE RECORDS SUMMARY | 2022-10-21 08:59 | XMS_ITS | Encounter Summary ---
:1980 Author Organization [place] Address [address] [place] [address] Care Team Providers Name Role Phone Aydee Burton ASSOCIATE DIRECTOR FINANCE DRYWALL APPLICATION SUPERVISOR Primary Care Provider Aydee Burton ASSOCIATE DIRECTOR FINANCE DRYWALL APPLICATION SUPERVISOR Unavailable [phone] Louisa Hood ASSOCIATE DIRECTOR FINANCE DRYWALL APPLICATION SUPERVISOR Unavailable [phone] Se Levy BEDSPREAD CUTTER Unavailable Unavailable Clari Ruiz [facility] Unavailable [phone] Angel Hannah MD Unavailable Lesly Celaya MD Unavailable Tawana Patel MA Unavailable Unavailable Ramses Mcpherson MD Unavailable [phone] Obdulio Barrera MD Unavailable [phone] Mago Swift LACQUER MAKER Unavailable Reason for Visit Reason Comments Surgical Followup 2nd post Hysterectomy visit - surgery 12/27/21 Encounter Details Date Type Department Care Team Description 2022 Office Visit [facility] Ramses Mcpherson Post op check [facility] MD Onesimo (Primary Dx) Noy [address] [facility] [address] [place] [address] [address] [place] [address] Social History Tobacco Use Types Packs/Day [...] How often do you attend congregational or jew services? Never 08/05/2021 Do you [...] at Date Recorded Female 11/09/2021 7:53 PM BRIMMER BLOCKER COVID-19 Exposure Response Date Recorded In the [...] 10/21/2022 Office Visit Pulmonology Obdulio Barrera MD [address] [place] [address] (Wo rk) 10/25/2022 PRE VISIT Charo Carter MD Previsit [address] [place] [address] (Wo rk) 10/25/2022 Office Visit Charo Carter MD [address] [place] [address] (Wo rk) 10/25/2022 Office Visit ENT Provider, Jeannette Ent Dysphonia Materials Engineer 10/25/2022 Virtual Visit Pain & [place]iative [place] [address] [place], [place] [address] 10/28/2022 Appointment Speech Therapy Anabel Chew, DOOR BUILDER [address] [address] (Wo rk) 11/17/2022 Appointment Speech Therapy Anabel Chew, DOOR BUILDER [address] [address] (Wo rk) 12/01/2022 Office Visit Pain & [place] [address] [place], [place] [address] (Wo rk) 12/23/2022 Office Visit Neurology Colby Yeung MD [address] [place] [address] (Wo rk) documented as of this encounter Visit Diagnoses Diagnosis Postop check - Primary Follow-up examination, following unspeci fied surgery documented in this encounter Additional Health Concerns Assessment Noted Time PHQ-9 Depression Total Score: 15 2022 7:02 AM CD T documented as of this encounter Care Teams Transaction Advisory Services Manager Relationship Specialty Start Date End Date Aydee Burton, PCP - General Nurse Practitioner - 05/17/21 ASSOCIATE DIRECTOR FINANCE DRYWALL APPLICATION SUPERVISOR [facility] [address] [place] [phone] Aydee Burton, Assigned PCP 04/28/21 ASSOCIATE DIRECTOR FINANCE [facility] [address] [place] [address] [phone] Louisa Hood, Assigned Neuroscience 07/11/21 ASSOCIATE DIRECTOR FINANCE DRYWALL APPLICATION SUPERVISOR Provider 500 [place], [place] [phone] Se Levy, Lead Buffing Wheel Former Machine 08/05/21 05/12/22 [facility] Clari Ruiz Pharmacist Pharmacist 08/06/21 06/07/22 Jocelyn [facility] [address] [place] [address] [place], Assigned Sleep 08/01/21 Angel Turcios, Provider [address] [place] [address] Lesly Celaya MD Assigned Surgical 09/05/21 [address] [facility] Provider [place], [place] [phone] Tawana Patel MA [facility] 09/30/21 Worker Ramses Mcpherson Assigned OBGYN 11/07/21 MD Onesimo Provider [address] [place] [address] Obdulio Barrera MD Critical Care 01/24/22 420 [facility] 276 [place] [address] Mago Swift, [facility] Lead Buffing Wheel Former Machine Director Orange - 08/05/21 Clinical documented as of this encounter
--- OUTSIDE RECORDS SUMMARY | 2022-10-21 08:59 | XMS_ITS | Encounter Summary ---
:1980 Author Organization [facility] Address [address] [place] [address] Care Team Providers Name Role Phone Aydee Burton HADOOP ANALYST CONSERVATION POLICY ANALYST Primary Care Provider Aydee Burton HADOOP ANALYST CONSERVATION POLICY ANALYST Unavailable [phone] Louisa Hood HADOOP ANALYST CONSERVATION POLICY ANALYST Unavailable [phone] Se Levy SENIOR ORACLE SOA DEVELOPER Unavailable Unavailable Clari Ruiz [facility] Unavailable [phone] Angel Hannah MD Unavailable Lesly Celaya MD Unavailable Tawana Patel MA Unavailable Unavailable Ramses Mcpherson MD Unavailable [phone] Obdulio Barrera MD Unavailable [phone] Mago Swift RN COMMUNITY Unavailable Encounter Details Date Type Department Care Team Description 01/24/2022 [facility] Only [facility] Obdulio Barrera ([facility] breath) (Primary Dx) Science and Health [address] [place], [place] [address] [place] [id number] [phone] Social History Tobacco Use Types Packs/Day Years [...] How often do you attend scientology or mormonism services? 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/2021 7:53 PM ASSEMBLER METAL FURNITURE COVID-19 Exposure Response Date Recorded In the last month, have you been in contact with No / Unsure 2022 4:00 PM CDT someone who was confirmed or suspected to have Coronavirus / COVID-19? documented as of this encounter Plan of Treatment Upcoming Encounters Date Type Specialty Care Team Description 10/21/2022 Office Visit Pulmonology Obdulio Barrera MD [address] [place] [phone] (Wo rk) 10/25/2022 PRE VISIT ENT Charo Burton MD Previsit [address] [place] [address] [phone] (Wo rk) 10/25/2022 Office Visit Charo Carter MD [address] [place] [phone] (Wo rk) 10/25/2022 Office Visit ENT Provider, Ent Dysphonia Diesel Service Apprentice 10/25/2022 Virtual Visit Pain & [place] [address] [place], [place] [address] 10/28/2022 Appointment Speech Therapy Anabel Chew, AUTOMATIC FURNACE OPERATOR [address] [id number] (Wo rk) 11/17/2022 Appointment Speech Therapy Anabel Chew, AUTOMATIC FURNACE OPERATOR [address] [id number] (Wo rk) 12/01/2022 Office Visit Pain & [place] [address] [place], [place] [address] (Wo rk) 12/23/2022 Office Visit Neurology Colby Yeung MD [address] [place] [phone] (Wo rk) documented as of this encounter Results Pulmonary function test (01/31/2022 7:52 AM CDT) athologist Signature FVC-Pred 3.91 L BREEZE PFT FVC-Pre 3.42 L BREEZE PFT FVC-%Pred-Pre 87 % BREEZE PFT FEV1-Pre 2.88 L BREEZE PFT FEV1-%Pred-Pre 90 % BREEZE PFT [id number] 82 % BREEZE PFT [id number] 84 % BREEZE PFT FEFMax-Pred 7.24 L/sec BREEZE PFT FEFMax-Pre 5.96 L/sec BREEZE PFT FEFMax-%Pred-Pr 82 % BREEZE PFT e [id number] 3.30 L/sec BREEZE PFT [id number] 3.50 L/sec BREEZE PFT EUG6289-%Pred-P 105 % BREEZE PFT re ExpTime-Pre 6.35 sec BREEZE PFT FIFMax-Pre 4.33 L/sec BREEZE PFT VC-Pred 3.91 L BREEZE PFT VC-Pre 3.65 L BREEZE PFT VC-%Pred-Pre 93 % BREEZE PFT IC-Pred 3.14 L BREEZE PFT IC-Pre 2.50 L BREEZE PFT IC-%Pred-Pre 79 % BREEZE PFT ERV-Pred 0.77 L BREEZE PFT ERV-Pre 1.15 L BREEZE PFT ERV-%Pred-Pre 149 % BREEZE PFT [id number] 84 % BREEZE PFT [id number]-Nma 84 % BREEZE PFT FRCPleth-Pred 2.78 L [...] BREEZE PFT VA-%Pred-Pre 91 % BREEZE PFT [id number]-Opcv 82 % BREEZE PFT [id number] 79 % BREEZE PFT Specimen (Source) Anatomical [...] documented as of this encounter Care Teams Upholsterer Limousine And Hearse Relationship Specialty Start Date End Date Aydee Burton, PCP - General Nurse Practitioner - 05/17/21 HADOOP ANALYST CONSERVATION POLICY ANALYST Family [address] [place], [place] [phone] Aydee Burton, Assigned PCP 04/28/21 HADOOP ANALYST [facility] [address] [place], [place] [phone] Louisa Hood, Assigned Neuroscience 07/11/21 HADOOP ANALYST CONSERVATION POLICY ANALYST Provider [address] [place] [address] Se Levy, Lead Master [employer] 08/05/21 05/12/22 [facility] Clari Ruiz Pharmacist Pharmacist 08/06/21 06/07/22 Jocelyn, [facility] [address] [place] [address] [place], Assigned Sleep 08/01/21 Angel Turcios, Provider [address] [place] [address] Lesly Celaya MD Assigned Surgical 09/05/21 [address] [place] [address] Tawana Patel MA [facility] 09/30/21 Worker Ramses Mcpherson Assigned OBGYN 11/07/21 MD Onesimo Provider [address] [place] [address] Obdulio Barrera MD Critical Care 01/24/22 [address] [facility] [address] [place] [address] Mago Swift, [facility] Lead Master [employer] Top Inventory Control Executive - 08/05/21 Clinical documented as of this encounter
--- OUTSIDE RECORDS SUMMARY | 2022-10-21 08:59 | XMS_ITS | Encounter Summary ---
:1980 Author Organization [facility] Address [address] [place] [address] Care Team Providers Name Role Phone Aydee Burton MID LEVEL PROVIDER SOLE BUFFER Primary Care Provider Aydee Burton MID LEVEL PROVIDER SOLE BUFFER Unavailable [phone] Louisa Hood MID LEVEL PROVIDER SOLE BUFFER Unavailable [phone] Se Levy BEAM DYER OPERATOR Unavailable Unavailable Clari Ruiz [facility] Unavailable [phone] Angel Hannah MD Unavailable Lesly Celaya MD Unavailable Tawana Patel MA Unavailable Unavailable Ramses Mcpherson MD Unavailable [phone] Mago Swift LABORER Unavailable Reason for Visit Reason Comments Cough Encounter Details Date Type Department Care Team Description 01/21/2022 Emergency [facility] Raphael Myers MD Cough; [facility] Emergency Dep t EMERGENCY PHYSICIANS Chest pain, unspecified type [address] [place], [place] [address] [address] [address] [place] [address] [place] [address] (Wo rk) Social History Tobacco Use Types [...] How often do you attend orthodox or yazidi services? Never 08/05/2021 Do you [...] at Date Recorded Female 11/09/2021 7:53 PM SIGN BUILDER SUPERVISOR COVID-19 Exposure Response Date Recorded In the last month, have you been in contact with No / Unsure 01/20/2022 1:55 PM SIGN BUILDER SUPERVISOR someone who was confirmed or suspected to have Coronavirus / COVID-19? documented as of this encounter Last Filed Vital Signs Vital Sign Reading Time Taken Comments Blood Pressure 112/66 01/21/2022 11:25 AM SIGN BUILDER SUPERVISOR Pulse 101 01/21/2022 9:09 AM SIGN BUILDER SUPERVISOR Temperature 36.2 ??C (97.2 ??F) 01/21/2022 9:09 AM SIGN BUILDER SUPERVISOR Respiratory Rate 14 01/21/2022 9:09 AM SIGN BUILDER SUPERVISOR Oxygen Saturation 99% 01/21/2022 11:25 AM SIGN BUILDER SUPERVISOR Inhaled Oxygen Concentration - - Weight 94.3 kg (207 lb 14.3 oz) 01/21/2022 9:09 AM SIGN BUILDER SUPERVISOR Height - - Body Mass Index 32.56 01/14/2022 1:07 PM SIGN BUILDER SUPERVISOR documented in this encounter Discharge Instructions AttachmentsThe following attachments cannot be sent through Care Everywhere. Cough, Chronic, Uncertain Cause (Adult) (Armenian)documented in this encounter Medications at Time of [...] chest tightness after breathing treatment. Cough persists BUILDER SUPERVISOR documented in this encounter ED Notes Mary Singh RN - 01/21/2022 9:07 AM CST Pt presents to ED for evaluation of chronic persistent cough. Pt uses Symbicort and Albuterol; the Symbicort provides some relief but wears off quickly. Pt also has a continuous monitor tech on. Thecough is dry, pt denies fevers. Notes pain in her chest from coughing so much, occasional nausea. BUILDER SUPERVISOR Raphael Myers MD - 01/21/2022 9:04 AM [...] prior ECG dated 01/19/22 Rate 90 bpm. IA interval 148. QRS duration 80. QT/QTc 344/420. [...] appointment. We will plan to continue with lbnn-jll-kaemrmy resources and to prescribe Tessalon Perles and recommended honey for this ongoing cough. Return precautions for development of fever, shortness of breath, or difficulty breathing. After all questions answered, discharged home. Diagnosis ICD-10-CM 1. Cough R05.9 2. Chest pain, unspecified type R07.9 Scribe Disclosure: I Kamille Parris, am serving as a scribe at 10:11 AM on 01/21/2022 to document services personally performed by Raphael Myers MD based on my observations and the provider's statements to me. Raphael Myers MD White, Scott, MD 01/21/22 1207 BUILDER SUPERVISOR Jessica Crawford PA-C - 01/21/2022 9:04 AM [...] GENITOURINARY SURGERY Tubal ligation and ablasion ??? GOLD MINER SURGERY not sure tubal ligation and ablasion [...] prior ECG dated 01/19/22 Rate 90 bpm. IA interval 148. QRS duration 80. QT/QTc 344/420. [...] place. Troponin was 3, and according to [facility] pathway for high-sensitivity troponin, patient can be ruled out for myocardial injury. Remainder laboratory evaluation was unremarkable. Chest x-ray was negative for acute pathology or pneumothorax. Patient symptoms improved slightly with a DuoNeb. She states she has a nebulizer, which just arrived at the pharmacy today, which she plans to hand picker. She also has an appointment with the civil engineer land development coming up on the .Advised her to [...] to me. Jessica Crawford PA-C 01/21/22 1157 BUILDER SUPERVISOR Associated attestation - Raphael Myers MD - 01/21/2022 12:09 PM SIGN BUILDER SUPERVISOR Physician Attestation IRaphael, saw and evaluated Marta Hill as part of a shared MID LEVEL PROVIDER/PA visit. I personally reviewed the vital signs, [...] Pulmonology Obdulio Barrera MD [address] [facility] [address] [place], [place] [address] (Wo rk) 10/25/2022 PRE VISIT ENT Charo Burton MD Previsit [address] [place] [phone] (Wo rk) 10/25/2022 Office Visit Charo Carter MD [address] [place] [address] [phone] (Wo rk) 10/25/2022 Office Visit ENT Provider, Ent Dysphonia Ehr Trainer 10/25/2022 Virtual Visit Pain & [place] [address] [place], [place] [address] 10/28/2022 Appointment Speech Therapy Anabel Chew, PEANUT SEPARATOR [address] [phone] (Wo rk) 11/17/2022 Appointment Speech Therapy Anabel Chew, PEANUT SEPARATOR [address] [phone] (Wo rk) 12/01/2022 Office Visit Pain & [place] [address] [place], [place] [address] (Wo rk) 12/23/2022 Office Visit Neurology Colby Yeung MD [address] [address] (Wo rk) documented as of this encounter Procedures Procedure Name Priority Date/Time Associated Comments Diagnosis XR CHEST 2 VIEWS STAT 01/21/2022 11:10 Results for this AM SIGN BUILDER SUPERVISOR procedure are i n the results section. CBC WITH PLATELETS STAT 01/21/2022 9:52 AM Res ults for this AND DIFFERENTIAL SIGN BUILDER SUPERVISOR procedure a re in the results section. CBC WITH PLATELETS & STAT 01/21/2022 9:52 AM R esults for this DIFFERENTIAL SIGN BUILDER SUPERVISOR procedure are i n the results section. TROPONIN I STAT 01/21/2022 9:52 AM Results f or this SIGN BUILDER SUPERVISOR procedure are i n the results section. BASIC METABOLIC PANEL STAT 01/21/2022 9:52 AM Results for this SIGN BUILDER SUPERVISOR procedure are i n the results section. EKG 12-LEAD, TRACING STAT 01/21/2022 9:41 AM R esults for this ONLY SIGN BUILDER SUPERVISOR procedure are i n the results section. documented in this encounter Results XR Chest 2 Views (01/21/2022 11:10 AM SIGN BUILDER SUPERVISOR) Anatomical Region Laterality Modality Chest Computed Radiography Specimen (Source) Anatomical Location Collection Method / Collectio n Time Received Time / Laterality Volume Impressions 01/21/2022 11:22 AM SIGN BUILDER SUPERVISOR IMPRESSION: Implanted device over the left chest. Clear lungs. No pleural effusion or pneumothorax.. Alanna l heart size. MITZY ALANIS MD Narrative 01/21/2022 11:22 AM SIGN BUILDER SUPERVISOR XR CHEST 2 VW 01/21/2022 11:10 AM [...] with platelets and differential (01/21/2022 9:52 AM SIGN BUILDER SUPERVISOR) [facility] Method Time Signature WBC Count 10.2 4.0 - 01/21/2022 [facility] 11.0 10:06 AM SIGN BUILDER SUPERVISOR 10e3/uL RBC Count 3.98 3.80 - 01/21/2022 [facility] 5.20 10:06 AM SIGN BUILDER SUPERVISOR 10e6/uL Hemoglobin 12.1 11.7 - 01/21/2022 [facility] 15.7 g/dL 10:06 AM SIGN BUILDER SUPERVISOR Hematocrit 38.6 35.0 - 01/21/2022 [facility] 47.0 % 10:06 AM SIGN BUILDER SUPERVISOR MCV 97 78 - 100 01/21/2022 [facility] fL 10:06 AM SIGN BUILDER SUPERVISOR MCH 30.4 26.5 - 01/21/2022 [facility] 33.0 pg 10:06 AM SIGN BUILDER SUPERVISOR MCHC 31.3 (L) 31.5 - 01/21/2022 [facility] 36.5 g/dL 10:06 AM SIGN BUILDER SUPERVISOR RDW 12.8 10.0 - 01/21/2022 [facility] 15.0 % 10:06 AM SIGN BUILDER SUPERVISOR Platelet Count 350 150 - 450 01/21/2022 [facility] 10e3/uL 10:06 AM SIGN BUILDER SUPERVISOR % Neutrophils 63 % 01/21/2022 [facility] 10:06 AM SIGN BUILDER SUPERVISOR % Lymphocytes 24 % 01/21/2022 [facility] 10:06 AM SIGN BUILDER SUPERVISOR % Monocytes 9 % 01/21/2022 [facility] 10:06 AM SIGN BUILDER SUPERVISOR % Eosinophils 2 % 01/21/2022 [facility] 10:06 AM SIGN BUILDER SUPERVISOR % Basophils 1 % 01/21/2022 [facility] 10:06 AM SIGN BUILDER SUPERVISOR % Immature 1 % 01/21/2022 [facility] Granulocytes 10:06 AM SIGN BUILDER SUPERVISOR NRBCs per 100 0 <1 /100 01/21/2022 [facility] WBC 10:06 AM SIGN BUILDER SUPERVISOR Absolute 6.5 1.6 - 8.3 01/21/2022 [facility] Neutrophils 10e3/uL 10:06 AM SIGN BUILDER SUPERVISOR Absolute 2.4 0.8 - 5.3 01/21/2022 [facility] Lymphocytes 10e3/uL 10:06 AM SIGN BUILDER SUPERVISOR Absolute 0.9 0.0 - 1.3 01/21/2022 [facility] Monocytes 10e3/uL 10:06 AM SIGN BUILDER SUPERVISOR Absolute 0.2 0.0 - 0.7 01/21/2022 [facility] Eosinophils 10e3/uL 10:06 AM SIGN BUILDER SUPERVISOR Absolute 0.1 0.0 - 0.2 01/21/2022 [facility] Basophils 10e3/uL 10:06 AM SIGN BUILDER SUPERVISOR Absolute 0.1 <=0.4 01/21/2022 [facility] Immature 10e3/uL 10:06 AM SIGN BUILDER SUPERVISOR Granulocytes Absolute NRBCs 0.0 10e3/uL 01/21/2022 [facility] 10:06 AM SIGN BUILDER SUPERVISOR Specimen Anatomical Collection Method / Collection Time Recei edil Time (Source) Location / Volume Laterality Blood STRUCTURE OF RIGHT Venipuncture / 01/21/2022 9:52 01/11 UPPER LIMB / Unknown AM SIGN BUILDER SUPERVISOR 10:00 AM SIGN BUILDER SUPERVISOR Unknown Jessica Crawford PA-C LAB - BLOOD ORDERABLES Performing Organization Address City/State/ZIP Code Phon [place] [address] [facility] [address] Lab (1st floor, no room number) Basic metabolic panel (01/21/2022 9:52 AM SIGN BUILDER SUPERVISOR) P athologist Signature Sodium 136 133 - 144 01/21/2022 LABORATORY mmol/L 10:29 AM SIGN BUILDER SUPERVISOR Potassium 4.2 3.4 - 5.3 01/21/2022 LABORATORY mmol/L 10:29 AM SIGN BUILDER SUPERVISOR Chloride 101 94 - 109 01/21/2022 LABORATORY mmol/L 10:29 AM SIGN BUILDER SUPERVISOR Carbon Dioxide 30 20 - 32 01/21/2022 LABORATORY (CO2) mmol/L 10:29 AM SIGN BUILDER SUPERVISOR Anion Gap 5 3 - 14 01/21/2022 LABORATORY mmol/L 10:29 AM SIGN BUILDER SUPERVISOR Urea Nitrogen 15 7 - 30 01/21/2022 LABORATORY mg/dL 10:29 AM SIGN BUILDER SUPERVISOR Creatinine 0.76 0.52 - 01/21/2022 LABORATORY 1.04 mg/dL 10:29 AM SIGN BUILDER SUPERVISOR Calcium 8.9 8.5 - 10.1 01/21/2022 LABORATORY mg/dL 10:29 AM SIGN BUILDER SUPERVISOR Glucose 92 70 - 99 01/21/2022 LABORATORY mg/dL 10:29 AM SIGN BUILDER SUPERVISOR GFR Estimate >90 >60 01/21/2022 LABORATORY mL/min/1.7 10:29 AM SIGN BUILDER SUPERVISOR 3m2 Comment: Effective November 02, 2021 eGF Rcr in adults is calculated using the 2020 CKD-EPI creatinine equation which includ es age and gender (Yulia et al., NEJM, DOI: 10.1056/JIACsb5031270) Specimen Anatomical Collection Method / Collection Time Recei edil Time (Source) Location / Volume Laterality Blood STRUCTURE OF RIGHT Venipuncture / 01/21/2022 9:52 01/11 UPPER LIMB / Unknown AM SIGN BUILDER SUPERVISOR 10:00 AM SIGN BUILDER SUPERVISOR Unknown Jessica Crawford PA-C LAB - BLOOD ORDERABLES Performing Organization Address City/State/ZIP Code [place] [address] Care [facility] [address] Lab (1st floor, no room number) Troponin I (01/21/2022 9:52 AM SIGN BUILDER SUPERVISOR) P athologist Signature Troponin I High 3 <54 ng/L 01/21/2022 LABORATORY Sensitivity 10:33 AM SIGN BUILDER SUPERVISOR Comment: This Troponin-I result was obta ined using a Siemens Dimension Krypton High Sensitivity Troponin-I assay (TNIH). Eff ective 10/05/21, nine labs/sites in the [facility] switched from a Siemens Krypton Contemporary Troponin I assay (CTNI) to a Siemens Krypton High-Sensitivity Troponi n I assay (TNIH). Specimen Anatomical Collection Method / Collection Time Recei edil Time (Source) Location / Volume Laterality Blood STRUCTURE OF RIGHT Venipuncture / 01/21/2022 9:52 01/11 UPPER LIMB / Unknown AM SIGN BUILDER SUPERVISOR 10:00 AM SIGN BUILDER SUPERVISOR Unknown Jessica Crawford PA-C LAB - BLOOD ORDERABLES Performing Organization Address City/State/ZIP Code [place] [address] Care [facility] [address] Lab (1st floor, no room number) EKG 12-lead, tracing only (01/21/2022 9:41 AM SIGN BUILDER SUPERVISOR) Component Value Ref Range Test Analysis Performed Pathologis t Method Time At Signature Systolic Blood mmHg RADIOLOGY Pressure RESULTS Diastolic Blood mmHg RADIOLOGY Pressure RESULTS Ventricular Rate 90 BPM RADIOLOGY RESULTS Atrial Rate 90 BPM RADIOLOGY RESULTS IA Interval 148 ms RADIOLOGY RESULTS QRS Duration 80 ms RADIOLOGY RESULTS QT 344 ms RADIOLOGY RESULTS QTc 420 ms RADIOLOGY RESULTS P [place] 31 degrees RADIOLOGY RESULTS R AXIS 31 degrees RADIOLOGY RESULTS T [place] 65 degrees RADIOLOGY RESULTS Interpretation Sinus rhythm RADIOLOGY ECG Normal ECG RESULTS When compared with ECG of 04-NOV-2021 08:52, No significant change was found Specimen Anatomical Collection Method Collection Time Receive d Time (Source) Location / / Volume Laterality 01/21/2022 9:41 AM SIGN BUILDER SUPERVISOR 10:42 AM SIGN BUILDER SUPERVISOR Jessica TANNER-C ECG ORDERABLES Performing Organization Address City/State/ZIP Code Phon e Number RADIOLOGY RESULTS documented in this encounter Visit Diagnoses Diagnosis Cough Chest pain, unspecified type documented in this encounter Administered Medications Inactive Administered Medications - up to 3 most recent administrations Medication Order MAR Action Action Date Dose Rate Site ipratropium - albuterol 0.5 mg/2.5 Given 01/21/2022 9:53 AM SIGN BUILDER SUPERVISOR 6 mLs mg/3 mL (DUONEB) neb solution 6 mL 6 mL, Nebulization, ONCE, On Mon01/21/22 at 0940, For 1 dose documented in this encounter Active and Recently Administered Medications Times are shown in SIGN BUILDER SUPERVISOR. Scheduled Medication Order 01/19/2022 01/20/2022 01/21/2022 ipratropium - albuterol 0.5 mg/2.5 mg/3 mL (DUONEB) neb solution 6 mL (COMPLETED) 0953 (Given - Provid er: Nancy Elder RN) 6 mL, Nebulization, ONCE, On Mon01/21/22 at 0940, For 1 dose documented in this encounter Additional Health Concerns Assessment Noted Time PHQ-9 Depression Total Score: 22 06/28/2021 7:03 AM CD T documented as of this encounter Care Teams Safe And Vault Installer Relationship Specialty Start Date End Date Aydee Burton, PCP - General Nurse Practitioner - 05/17/21 MID LEVEL PROVIDER SOLE BUFFER Family [address] [place], [place] [phone] Aydee Burton, Assigned PCP 04/28/21 MID LEVEL PROVIDER SOLE BUFFER [address] [place], [place] [address] Louisa Hood, Assigned Neuroscience 07/11/21 MID LEVEL PROVIDER SOLE BUFFER Provider [address] [place], [place] [phone] Se Levy, Lead Light Technician 08/05/21 05/12/22 Clari Francois Pharmacist Pharmacist 08/06/21 06/07/22 JORDAN Banks [address] [address] [place], Assigned Sleep 08/01/21 Angel Turcios, Provider [address] [place], [place] [address] Lesly Celaya MD Assigned Surgical 09/05/21 [address] Provider [place], [place] [phone] Tawana Patel MA [facility] 09/30/21 Worker Ramses Mcpherson Assigned OBGYN 11/07/21 MD Onesimo Provider [address] [place] [address] Mago Swift [facility] Lead Light Technician Biological Sciences Professor - 08/05/21 Clinical documented as of this encounter
--- OUTSIDE RECORDS SUMMARY | 2022-10-21 08:59 | XMS_ITS | Encounter Summary ---
:1980 Author Organization [place] Address [address] [facility] [place] [address] Care Team Providers Name Role Phone Aydee Burton INSTALLER TECHNICIAN PSYCHOLOGICAL EXAMINER Primary Care Provider [phone] Aydee Burton INSTALLER TECHNICIAN PSYCHOLOGICAL EXAMINER Unavailable [phone] Louisa Hood INSTALLER TECHNICIAN PSYCHOLOGICAL EXAMINER Unavailable [phone] Se Levy EDUCATION SITE MANAGER Unavailable Unavailable Clari Ruiz [facility] Unavailable [phone] Angel Hannah MD Unavailable Lesly Celaya MD Unavailable Tawana Patel MA Unavailable Unavailable Ramses Mcpherson MD Unavailable [phone] Obdulio Barrera MD Unavailable [phone] Mago Swift SENIOR LEAD PROJECT MANAGER Unavailable Reason for Visit Reason Comments New Patient Cough/ Wheezing Consultation (Priority: 1-2 Weeks) - Closed Specialty Diagnoses / Procedures Referred By Contact Refer red To Contact Pulmonary Disease Diagnoses Cough Wheezing Pulmonary air trapping Aydee Burton [place] [facility] INSTALLER TECHNICIAN PSYCHOLOGICAL EXAMINER [place] [address] [place] [address] [place] [address] [address] [place] [address] Phone: Referral ID Status Reason Start Date Expiration Date Visits Requ ested Visits Authorized [id number] Closed 01/19/2022 01/19/2023 1 1 Encounter Details Date Type Department Care Team Description 01/31/2022 Office Visit [facility] Aydee Burton Ch, ELADIO PSYCHOLOGICAL EXAMINER [address] [place], [place] [address] Cough (Primary Dx); Specialty Clinic Obdulio Barrera MD [address] [facility] [address] [place] [address] Wheezing; [place] Pulmonary air trapping [address] [facility] [address] [place] [address] Social History Tobacco Use Types [...] How often do you attend orthodoxy or yarsani services? 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 RAW HIDE TRIMMER SURGERY not sure tubal ligation and ablasion [...] Other Topics Concern ??? Parent/sibling w/ CABG, PR or angioplasty before 65F 55M? No Social [...] with Friends and Family: Never ??? Attends Sabianism Services: Never ??? Active Member of Clubs [...] Barrera MD Pulmonary and Critical Care Medicine [facility] documented in this encounter Nursing Notes [...] 10/21/2022 Office Visit Pulmonology Obdulio Barrera MD [address] [place] [address] [phone] (Wo rk) 10/25/2022 PRE VISIT ENT Charo Burton MD Previsit [address] [place] [address] [phone] (Wo rk) 10/25/2022 Office Visit Charo Carter MD [address] [place] [address] [phone] (Wo rk) 10/25/2022 Office Visit ENT Provider, Ent Dysphonia Product Demonstrator 10/25/2022 Virtual Visit Pain & Palliative Care Marilia Deluna, PhD [address] [place], [place] [address] 10/28/2022 Appointment Speech Therapy Anabel Chew, WIND FIELD MANAGER [address] 265135 (Wo rk) 11/17/2022 Appointment Speech Therapy Anabel Chew SLP [address] [phone] (Wo rk) 12/01/2022 Office Visit Pain [place] [address] [facility] [place] [address] (Wo rk) 12/23/2022 Office Visit Neurology Colby Yeung MD [address] [phone] (Wo rk) documented as of this encounter Results Strep pneumo Agn Urine or CSF (01/31/2022 5:20 PM CDT) [facility] [employer] Method Time Signature Streptococcus Negative Negative NIKOLAS [...] Code Phon e Number [facility] [place] [address] Diag. Lab [address] [facility], Room D297 Legionella pneumophila antigen urine (01/31/2022 5:20 PM CDT) [facility] Time Signature Legionella Negative Negative NIKOLAS [...] Code Phon e Number [facility] [place] [address] Diag. Lab 500 [facility], Room D297 Blastomyces Agn Quant EIA Blood (01/31/2022 4:45 PM CDT) [facility] [employer] Method Time Signature See Scanned BLASTOMYCES AGN [...] MICRO GENERAL ORDERABL ES Performing Organization Address City/[facility]/ZIP Code Phon e Number [facility] [address] [place] [address] [address] Histoplasma capsulatum antigen (01/31/2022 4:45 PM CDT) [facility] [employer] Method Time Signature See Scanned HISTOPLASMA 02/04/2022 [...] Address City/State/ZIP Code Phon e Number [facility] [address] [place] [address] [address] 1,3 Beta D glucan fungitell (01/31/2022 4:45 PM CDT) [facility] Method Time Signature (1,3)-Kwyg-K-Nadhw <31 pg/mL 02/02/2022 [facility] n 1:42 PM CDT B-D GLUCAN Negative Negative 02/02/2022 [facility] INTERPRETATION 1:42 PM CDT (1,3) Comment: [...] cus, which produce very low levels of (1,3)-oyfx-S-jwaveq. This test will not detect the zygomycetes, such as Absidia, Mucor, and Rhizopus, which are not known to produce (1,3)-cpya-T-ahtnel. In addition, the ye ast phase of Blastomyces dermatitidis produces little (1,3)-dfrw-P-oefjrs and may not be detec mike by the assay. Performed By: [facility] [address] [place] [address] Deburrer Strip: Florence Naranjo MD Specimen Anatomical Collection Method / Collection Time Recei edil Time (Source) Location / Volume Laterality Blood STRUCTURE OF RIGHT Venipuncture / 01/31/2022 4:45 03/2 11/2021 4:45 UPPER LIMB / Unknown PM CDT PM CDT Unknown Obdulio Barrera MD LAB - BLOOD ORDERABLES Performing Organization Address City/State/ZIP Code Phon e Number [place], [place] [phone] [address] [facility] [address] Aspergillus Galactomannan Antigen (01/31/2022 4:45 PM CDT) [facility] Method Time Signature Aspergillus 0.04 02/04/2022 [...] serial sampling is recommended . Performed By: [facility] [address] [place] [address] De[place]rer Strip: Florence Naranjo MD Specimen Anatomical Collection Method / Collection Time Recei edil Time (Source) Location / Volume Laterality Blood STRUCTURE OF RIGHT Venipuncture / 01/31/2022 4:45 03/2 11/2021 4:45 UPPER LIMB / Unknown PM CDT PM CDT Unknown Obdulio Barrera MD LAB - MICRO GENERAL ORDERABL ES Performing Organization Address City/State/[facility] Code Phon e Number [employer] [place], [place] [phone] [address] [facility] [address] Hypersensitivity Pneumonitis 2 (01/31/2022 4:45 PM CDT) [facility] Method Time Signature Aspergillus None None 02/08/2022 [facility] flavus Ab Detected Detected 3:08 PM CDT Comment: Performed By: [facility] [address] [place] [address] A fumigatus #2 Ab None Detected None Detected 02/08/2022 3:0 8 PM CDT [facility] Comment: Performed By: [facility] [address] [place] [address] A fumigatus #3 Ab None Detected None Detected 02/08/2022 3:0 8 PM CDT [facility] Comment: Performed By: [facility] [address] [place] [address] Saccharo viridis Ab None Detected None Detected 02/08/2022 3:08 PM CDT [facility] Comment: Performed By: [facility] [address] [place] [address] Thermo candidus Ab None Detected None Detected 02/08/2022 3:08 PM CDT [facility] Comment: Testing includes antibodies directed at Aspergillus flavus, Aspergillus fumigatus #2, Aspergillus fu migatus #3, Saccharomonospora viridis, and Thermoact inomyces candidus. Performed By: [facility] Laboratory [address] [place], [place] [id number] Specimen Anatomical Collection Method / Collection Time Recei edil Time (Source) Location / Volume Laterality Blood STRUCTURE OF RIGHT Venipuncture / 01/31/2022 4:45 03/2 11/2021 4:45 UPPER LIMB / Unknown PM CDT PM CDT Unknown Obdulio Barrera MD LAB - BLOOD ORDERABLES Performing Organization Address City/State/ZIP Code Phon e Number [place], [place] [phone] [place] [address] Hypersensitivity pneumonitis (01/31/2022 4:45 PM CDT) [facility] gist Method Time Signature Aspergillus None None 02/08/2022 [facility] Fumagatis 1 Detected Detected 3:07 PM CDT Antibody Comment: Performed By: [facility] [address] [place] [address] Aspergillus Fumagatis None Detected None Detected 02/08/2022 3:07 PM [facility] 6 Antibody CDT Comment: Performed By: [facility] [address] [place] [address] Aureo Pullulans None Detected None Detected 02/08/2022 3:07 PM CDT [facility] Comment: Performed By: [facility] [address] [place] [address] [place] serum None Detected None Detected 02/08/2022 3:07 PM CDT [facility] Comment: Performed By: [facility] [address] [place] [address] Micropolyspora Faeni None Detected None Detected 3:07 PM CDT [facility] Comment: Performed By: [facility] [address] [place] [address] Thermoact Vulgaris 1 See Note None Detected 02/08/2022 3:07 PM CDT [facility] Comment: Testing includes antibodies directed at Aureobasidium pullulans, Aspergillus fumigatus #1, Asp ergillus fumigatus #6, Micropolyspora faeni, [place] Serum a nd Thermoactinomyces vulgaris #1. Thermoactinomyces vulgaris #1 testing no t performed due to unsatisfactory reagent performance. A cr edit will be issued for this component. Performed By: [facility] [address] [place] [address] Specimen Anatomical Collection Method / Collection Time Recei edil Time (Source) Location / Volume Laterality Blood STRUCTURE OF RIGHT Venipuncture / 01/31/2022 4:45 03/2 11/2021 4:45 UPPER LIMB / Unknown PM CDT PM CDT Unknown Obdulio Barrera MD LAB - BLOOD ORDERABLES Performing Organization Address City/State/ZIP Code Phon e Number [facility] [place], [place] [phone] [address] [facility] [address] documented in this encounter Visit Diagnoses Diagnosis Cough - Primary Wheezing Pulmonary air trapping documented in this encounter Additional Health Concerns Assessment Noted Time PHQ-9 Depression Total Score: 15 2022 7:02 AM CD T documented as of this encounter Care Teams Child And Family Services Worker Relationship Specialty Start Date End Date Aydee Burton, PCP - General Nurse Practitioner - 05/17/21 INSTALLER TECHNICIAN PSYCHOLOGICAL EXAMINER Family [address] [place] [address] Aydee Burton, Assigned PCP 04/28/21 INSTALLER TECHNICIAN PSYCHOLOGICAL EXAMINER [address] [place] [address] [phone] Louisa Hood, Assigned Neuroscience 07/11/21 INSTALLER TECHNICIAN PSYCHOLOGICAL EXAMINER Provider [address] [place], [place] [phone] Se Levy, Lead Family And Consumer Education Teacher 08/05/21 05/12/22 Clari Francois Pharmacist Pharmacist 08/06/21 06/07/22 Jocelyn Carrie [address] [place] [address] [place], Assigned Sleep 08/01/21 Angel Turcios, Provider [address] [place], [place] [phone] Lesly Celaya MD Assigned Surgical 09/05/21 [address] [place] [place] [address] Tawana Patel MA [facility] 09/30/21 Worker Ramses Mcpherson Assigned OBGYN 11/07/21 MD Onesimo Provider [address] [place], [place] [address] Obdulio Barrera MD Critical Care 01/24/22 [address] [facility] [address] [place], [place] [address] Mago Swift [facility] Lead Family And Consumer Education Teacher Knotter - 08/05/21 Clinical documented as of this encounter
--- OUTSIDE RECORDS SUMMARY | 2022-10-21 08:59 | XMS_ITS | Encounter Summary ---
:1980 Author Organization [place] Address [address] [place] [address] Care Team Providers Name Role Phone Aydee Burton PROCESSING OPERATOR REFERENCE DATA EXPERT Primary Care Provider [phone] Aydee Burton PROCESSING OPERATOR REFERENCE DATA EXPERT Unavailable [phone] Louisa Hood PROCESSING OPERATOR REFERENCE DATA EXPERT Unavailable [phone] Se Levy NET DEVELOPER PROGRAMMER Unavailable Unavailable Clari Ruiz [facility] Unavailable [phone] Angel Hannah MD Unavailable Lesly Celaya MD Unavailable Tawana Patel MA Unavailable Unavailable Ramses Mcpherson MD Unavailable [phone] Obdulio Barrera MD Unavailable [phone] Mago Swift SOAP INSPECTOR Unavailable Encounter Details Date Type Department Care [...] How often do you attend jain or yazdanism services? Never 08/05/2021 Do you [...] at Date Recorded Female 11/09/2021 7:53 PM SLASHER COVID-19 Exposure Response Date Recorded In the last month, have you been in contact with No / Unsure 01/30/2022 1:07 PM CDT someone who was confirmed or suspected to have Coronavirus / COVID-19? documented as of this encounter Plan of Treatment Upcoming Encounters Date Type Specialty Care Team Description 10/21/2022 Office Visit Pulmonology Obdulio Barrera MD [address] [address] (Wo rk) 10/25/2022 PRE VISIT Charo Carter MD Previsit [address] [place] [address] (Wo rk) 10/25/2022 Office Visit Charo Carter MD [address] [place] [address] (Wo rk) 10/25/2022 Office Visit ENT Provider, Jeannette Ent Dysphonia Networking Technology Instructor 10/25/2022 Virtual Visit Pain & [place] [address] [place], [place] [address] 10/28/2022 Appointment Speech Therapy Anabel Chew, YARN TWISTER [address] 464965 (Wo rk) 11/17/2022 Appointment Speech Therapy Anabel Chew, YARN TWISTER [address] [address] (Wo rk) 12/01/2022 Office Visit Pain & [place] [address] [place], [place] [address] (Wo rk) 12/23/2022 Office Visit Neurology Colby Yeung MD [address] [place] [address] (Wo rk) documented as of this encounter Visit Diagnoses Not on filedocumented in this encounter Additional Health Concerns Assessment Noted Time PHQ-9 Depression Total Score: 15 2022 7:02 AM CD T documented as of this encounter Care Teams Getter Operator Relationship Specialty Start Date End Date Aydee Burton, PCP - General Nurse Practitioner - 05/17/21 PROCESSING OPERATOR REFERENCE DATA EXPERT Family [address] [place] [address] [phone] Aydee Burton, Assigned PCP 04/28/21 PROCESSING OPERATOR [facility] [address] [place] [address] [phone] Louisa Hood, Assigned Neuroscience 07/11/21 PROCESSING OPERATOR REFERENCE DATA EXPERT Provider [address] [place] [address] Se Levy, Lead Pain Medicine Physician 08/05/21 05/12/22 [facility] Clari Ruiz Pharmacist Pharmacist 08/06/21 06/07/22 Jocelyn, [facility] [address] [place] [address] [place], Assigned Sleep 08/01/21 Angel Turcios, Provider [address] [place] [address] Lesly Celaya MD Assigned Surgical 09/05/21 [address] Provider [place], [place] [phone] Tawana Patel MA [facility] Health 09/30/21 Worker Ramses Mcpherson Assigned OBGYN 11/07/21 MD Onesimo Provider [address] [place] [address] Obdulio Barrera MD Critical Care 01/24/22 [address] [facility] [address] [place], [place] [phone] Mago Swift, [facility] Lead Pain Medicine Physician Barrel Plater - 08/05/21 Clinical documented as of this encounter
--- OUTSIDE RECORDS SUMMARY | 2022-10-21 08:59 | XMS_ITS | Encounter Summary ---
:1980 Author Organization [place] Address [address] [place] [address] Care Team Providers Name Role Phone Aydee Nam SLABBER LIGHT AUTOMOTIVE SALES ASSOCIATE Primary Care Provider [phone] Aydee Nam SLABBER LIGHT AUTOMOTIVE SALES ASSOCIATE Unavailable [phone] Louisa Hood SLABBER LIGHT AUTOMOTIVE SALES ASSOCIATE Unavailable [phone] Se Levy MOTORCYCLE DELIVERER Unavailable Unavailable Clari Ruiz [facility] Unavailable [phone] Angel Hannah MD Unavailable Lesly Celaya MD Unavailable Tawana Patel MA Unavailable Unavailable Ramses Mcpherson MD Unavailable [phone] Obdulio Barrera MD Unavailable [phone] Mago Swift RAG PRODUCTION WORKER Unavailable Reason for Referral CV Testing (Priority: [...] INITIAL SUBSTANCE ZZHC US GUIDE FOR PERICARDIOCENTESIS AUTOMOTIVE SALES ASSOCIATE ZZHC ECHO MYOCARD BX ZZC INJECTION, PERFLUTREN LIPID MICROSPHERES, PER ML ZZHC STATISTIC IV PUSH SINGLE INITIAL SUBSTANCE NH ECHO MYOCARD BX NH INJECTION, PERFLUTREN LIPID MICROSPHERES, PER ML NH TTE W/DOPPLER, COMPLETE [address] [place] IV PUSH SINGLE, INITIAL S UBSTANCE NH TTE W/DOPPLER, COMPLETE NH TTE W/DOPPLER, COMPLETE HC US GUIDE FOR PERICARDIOCENTESIS HC ECHO MYOCARD BX HC IV PUSH SINGLE, INITIAL SUBSTANCE HC STATISTIC IV PUSH SINGLE INITIAL SUBSTANCE PRIOR IHSAN [place] [address] HC ECHO COMPLETE W DOPPLER W CONTRAST HC ECHO COMPLETE W DOPPLER W/O CONTRAST Referral ID Status Reason Start Date Expiration Date Visits Requ ested Visits Authorized [id number] Closed 01/24/2022 01/24/2023 1 1 Reason for [...] INITIAL SUBSTANCE ZZHC US GUIDE FOR PERICARDIOCENTESIS AUTOMOTIVE SALES ASSOCIATE ZZHC ECHO MYOCARD BX ZZC INJECTION, PERFLUTREN LIPID MICROSPHERES, PER ML ZZHC STATISTIC IV PUSH SINGLE INITIAL SUBSTANCE NH ECHO MYOCARD BX NH INJECTION, PERFLUTREN LIPID MICROSPHERES, PER ML NH TTE W/DOPPLER, COMPLETE [address] NH IV PUSH SINGLE, INITIAL S UBSTANCE NH TTE W/DOPPLER, COMPLETE NH TTE W/DOPPLER, COMPLETE HC US GUIDE FOR PERICARDIOCENTESIS HC ECHO MYOCARD BX HC IV PUSH SINGLE, INITIAL SUBSTANCE HC STATISTIC IV PUSH SINGLE INITIAL [place]ST[place] [address] HC ECHO COMPLETE W DOPPLER W CONTRAST HC ECHO COMPLETE W DOPPLER W/O CONTRAST Referral ID Status Reason Start Date Expiration Date Visits Requ ested Visits Authorized [id number] Closed 01/24/2022 01/24/2023 1 1 Encounter Details Date Type Department Care Team Description 01/31/2022 Hospital Encounter [facility] NamAydee Ches t pain, unspecified type; [facility]IGHT Chest tig htness; [facility] AUTOMOTIVE SALES ASSOCIATE SOB (shortness of breath); [address] [facility] Pulmona ry air trapping; Blvd [address] Wheezing; [place], [place] PRIOR [place], [place] [address] [phone] Social History Tobacco Use Types Packs/Day Years [...] How often do you attend baptism or mandaeism services? 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 Lory Nunez, MS, PHILIPPE (covering for Aydee Nam CNP) [facility] documented in this encounter Plan of Treatment Upcoming Encounters Date Type Specialty Care Team Description 10/21/2022 Office Visit Pulmonology Obdulio Barrera MD [address] [place] [address] [phone] (Estefanía rk) 10/25/2022 PRE VISIT ENT Charo Burton MD Previsit [address] [place] [address] [phone] (Estefanía rk) 10/25/2022 Office Visit Charo Carter MD [address] [place] [address] [phone] (Estefanía casanova) 10/25/2022 Office Visit ENT Provider, Ent Dysphonia Coremaker Apprentice 10/25/2022 Virtual Visit Pain & [place] [address] [place], [place] [address] 10/28/2022 Appointment Speech Therapy Anabel Chew, TABLE GAMES MANAGER [address] [address] (Wo rk) 11/17/2022 Appointment Speech Therapy Anabel Chew TABLE GAMES MANAGER [address] [phone] (Wo rk) 12/01/2022 Office Visit Pain & [place] [address] [place], [place] [address] (Wo rk) 12/23/2022 Office Visit Neurology Colby Yeung MD [address] [place], [place] [address] (Wo rk) documented as of this encounter Procedures Procedure Name Priority Date/Time Associated Diagnosis Comme nts ECHO COMPLETE SEAN 01/31/2022 4:18 PM Chest pain, Results for this CDT unspecified type procedure are in Chest tightness the results SOB (shortness of section. breath) Pulmonary air tr apping Wheezing Bronchospasm documented in this encounter Results ECHO COMPLETE (01/31/2022 4:18 PM CDT) athologist Signature LVEF 60-65% CARDIOLOGY RESULTS Anatomical Region Laterality Modality Echocardiography Specimen (Source) Anatomical Collection Method Collection Time Re ceived Time Location / / Volume Laterality 01/31/2022 3:57 PM CDT Narrative 01/31/2022 4:37 PM CDT [id number]^CYRIL^AYDEE^[facility] Echocardiography Laboratory [address] [place] [address] Name: MARTA HAWKINS : 1980 Study Date: 01/31/2022 03:57 PM Age: 42 yrs Gender: Female Patient Location: [facility] Reason For Study: Chest pain, unspecifie d [...] note might be different from the original. [id number]^CYRIL^AYDEE^[facility] Echocardiography Laboratory [address] [place] [address] Name: MARTA HAWKINS : 1980 Study Date: 01/31/2022 03:57 PM Age: 42 yrs Gender: Female Patient Location: [facility] Reason For Study: Chest pain, unspecifie d type, Chest tightness, SOB (shortness of Ordering Physician: AYDEE NAM Referring Physician: AYDEE NAM Performed By: Margarito Blair RDCS BSA: 2.1 [...] Davis 0 01/31/2022 04:37 PM Aydee Nam SLABBER LIGHT AUTOMOTIVE SALES ASSOCIATE CV ECHO ORDERABLES documented in this encounter Visit Diagnoses Diagnosis Chest pain, unspecified type Chest tightness Other chest pain SOB (shortness of breath) Shortness of breath Pulmonary air trapping Wheezing Bronchospasm Acute bronchospasm documented in this encounter Additional Health Concerns Assessment Noted Time PHQ-9 Depression Total Score: 15 2022 7:02 AM CD T documented as of this encounter Care Teams Manager Resource Relationship Specialty Start Date End Date Aydee Nam, PCP - General Nurse Practitioner - 05/17/21 SLABBER LIGHT AUTOMOTIVE SALES ASSOCIATE Family [address] [place], [place] [phone] Aydee Nam, Assigned PCP 04/28/21 SLABBER LIGHT AUTOMOTIVE SALES ASSOCIATE [address] [place], [place] [phone] Louisa Hood, Assigned Neuroscience 07/11/21 SLABBER LIGHT AUTOMOTIVE SALES ASSOCIATE Provider [address] [place], [place] [phone] Se Levy, Lead Home Appliance Installer 08/05/21 05/12/22 Clari Francois Pharmacist Pharmacist 08/06/21 06/07/22 Jocelyn [facility] [address] [facility] [address] [place], [place] [phone] [place], Assigned Sleep 08/01/21 Angel Turcios, Provider [address] [place] [address] Lesly Celaya MD Assigned Surgical 09/05/21 [address] [place] [address] Tawana [facility]el [facility] 09/30/21 Worker Ramses Mcpherson Assigned OBGYN 11/07/21 MD Onesimo Provider [address] [place], [place] [phone] Obdulio Barrera MD Critical Care 01/24/22 420 [facility] [address] [place], [place] [address] Mago Swift, [facility] Lead Home Appliance Installer Hospital Food Service Worker - 08/05/21 Clinical documented as of this encounter
--- OUTSIDE RECORDS SUMMARY | 2022-10-21 08:59 | XMS_ITS | Encounter Summary ---
:1980 Author Organization [facility] Address [address] [place] [address] Care Team Providers Name Role Phone Aydee Burton FIRER AUTOMATIC STOKER AUDIO ENGINEER Primary Care Provider Aydee Burton FIRER AUTOMATIC STOKER AUDIO ENGINEER Unavailable [phone] Louisa Hood FIRER AUTOMATIC STOKER AUDIO ENGINEER Unavailable [phone] Se Levy MEDICAL OFFICE ADMINISTRATOR Unavailable Unavailable Clari Ruiz [facility] Unavailable [phone] Angel Hannah MD Unavailable Lesly Celaya MD Unavailable Tawana Patel MA Unavailable Unavailable Ramses Mcpherson MD Unavailable [phone] Obdulio Barrera MD Unavailable [phone] Mago Swift AUTO GARAGE MECHANIC Unavailable Encounter Details Date Type Department Care [...] How often do you attend sabianist or christianity services? Never 08/05/2021 Do you [...] Recorded Female 11/09/2021 7:53 PM TRAFFIC SIGNAL SUPERVISOR MAINTENANCE COVID-19 Exposure Response Date Recorded In the last month, have you been in contact with No / Unsure 01/24/2022 10:24 AM CDT someone who was confirmed or suspected to have Coronavirus / COVID-19? documented as of this encounter Plan of Treatment Upcoming Encounters Date Type Specialty Care Team Description 10/21/2022 Office Visit Pulmonology Obdulio Barrera MD [address] [address] (Wo rk) 10/25/2022 PRE VISIT Charo Carter MD Previsit [address] [place] [address] (Wo rk) 10/25/2022 Office Visit Charo Carter MD 9 [place] [address] (Wo rk) 10/25/2022 Office Visit ENT Provider, Jeannette Ent Dysphonia Jacquard Loom Card Changer 10/25/2022 Virtual Visit Pain & [place] [address] [place], [place] [address] 10/28/2022 Appointment Speech Therapy Anabel Chew, SWING DRIVER [address] [id number] (Wo rk) 11/17/2022 Appointment Speech Therapy Anabel Chew, SWING DRIVER [address] [phone] (Wo rk) 12/01/2022 Office Visit Pain & [place] [address] [place], [place] [address] (Wo rk) 12/23/2022 Office Visit Neurology Cobly Yeung MD [address] [place] [address] (Wo rk) documented as of this encounter Visit Diagnoses Not on filedocumented in this encounter Additional Health Concerns Assessment Noted Time PHQ-9 Depression Total Score: 15 2022 7:02 AM CD T documented as of this encounter Care Teams [place] Relationship Specialty Start Date End Date Aydee Burton, PCP - General Nurse Practitioner - 05/17/21 FIRER AUTOMATIC STOKER AUDIO ENGINEER Family [address] [place] [address] [phone] Aydee Burton, Assigned PCP 04/28/21 FIRER AUTOMATIC STOKER [facility] [address] [place] [address] [phone] Louisa Hood, Assigned Neuroscience 07/11/21 FIRER AUTOMATIC STOKER AUDIO ENGINEER Provider [address] [place] [address] Se Levy, Lead Adhesive Bandage Making Operator 08/05/21 05/12/22 [facility] Clari Ruiz Pharmacist Pharmacist 08/06/21 06/07/22 Jocelyn, [facility] [address] [place] [address] [place], Assigned Sleep 08/01/21 Angel Turcios, Provider [address] [place] [address] Lesly Celaya MD Assigned Surgical 09/05/21 [address] Provider [place], [place] [phone] Tawana Patel MA [facility] Health 09/30/21 Worker Ramses Mcpherson Assigned OBGYN 11/07/21 MD Onesimo Provider [address] [place] [address] Obdulio Barrera MD Critical Care 01/24/22 420 [facility] [address] [place], [place] [phone] Mago Swift, [facility] Lead Adhesive Bandage Making Operator Community Marketing Manager - 08/05/21 Clinical documented as of this encounter
--- OUTSIDE RECORDS SUMMARY | 2022-10-21 08:59 | XMS_ITS | Encounter Summary ---
:1980 Author Organization [facility] Address [address] [place] [address] Care Team Providers Name Role Phone Aydee Burton BLADDER TIER TRADING FLOOR OPERATOR Primary Care Provider [phone] Aydee Burton BLADDER TIER TRADING FLOOR OPERATOR Unavailable [phone] Louisa Hood BLADDER TIER TRADING FLOOR OPERATOR Unavailable [phone] Se Levy BRIQUETTE MOLDER Unavailable Unavailable Clari Ruiz [facility] Unavailable [phone] Angel Hannah MD Unavailable Lesly Celaya MD Unavailable Tawana Patel MA Unavailable Unavailable Ramses Mcpherson MD Unavailable [phone] Obdulio Barrera MD Unavailable [phone] Mago Swift RADIOLOGIST DIAGNOSTIC Unavailable Encounter Details Date Type Department Care [...] Date Recorded Female 11/09/2021 7:53 PM OFFICE RN COVID-19 Exposure Response Date Recorded In the last month, have you been in contact with No / Unsure 2022 4:00 PM CDT someone who was confirmed or suspected to have Coronavirus / COVID-19? documented as of this encounter Plan of Treatment Upcoming Encounters Date Type Specialty Care Team Description 10/21/2022 Office Visit Pulmonology Obdulio Barrera MD [address] [address] (Wo rk) 10/25/2022 PRE VISIT Charo Carter MD Previsit [address] [place] [address] (Wo rk) 10/25/2022 Office Visit Charo Carter MD 9 [place] [address] (Wo rk) 10/25/2022 Office Visit ENT Provider, Jeannette Ent Dysphonia Carpet Cleaning Technician 10/25/2022 Virtual Visit Pain & [place] [address] [place], [place] [address] 10/28/2022 Appointment Speech Therapy Anabel Chew, OWNER PROFESSIONAL ENGINEER [address] [address] (Wo rk) 11/17/2022 Appointment Speech Therapy Anabel Chew, OWNER PROFESSIONAL ENGINEER [address] [address] (Wo rk) 12/01/2022 Office Visit Pain & [place] [address] [place], [place] [address] (Wo rk) 12/23/2022 Office Visit Neurology Colby Yeung MD [address] [place] [address] (Wo rk) documented as of this encounter Visit Diagnoses Not on filedocumented in this encounter Additional Health Concerns Assessment Noted Time PHQ-9 Depression Total Score: 15 2022 7:02 AM CD T documented as of this encounter Care Teams Emergency Vehicle Operator Relationship Specialty Start Date End Date Aydee Burton, PCP - General Nurse Practitioner - 05/17/21 BLADDER TIER TRADING FLOOR OPERATOR Family [address] [place] [address] [phone] Aydee Burton, Assigned PCP 04/28/21 BLADDER TIER [facility] [address] [place] [address] [phone] Louisa Hood, Assigned Neuroscience 07/11/21 BLADDER TIER TRADING FLOOR OPERATOR Provider [address] [place] [address] Se Levy, Lead Commercial Crabber 08/05/21 05/12/22 [facility] Clari Ruiz Pharmacist Pharmacist 08/06/21 06/07/22 Jocelyn, [facility] [address] [place] [address] [place], Assigned Sleep 08/01/21 Angel Turcios, Provider [address] [place] [address] Lesly Celaya MD Assigned Surgical 09/05/21 [address] Provider [place], [place] [phone] Tawana Patel MA [facility] Health 09/30/21 Worker Ramses Mcpherson Assigned OBGYN 11/07/21 MD Onesimo Provider [address] [place] [address] Obdulio Barrera MD Critical Care 01/24/22 420 [facility] 276 [place], [place] [phone] Mago Swift, [facility] Lead Commercial Crabber Timber Sizer - 08/05/21 Clinical documented as of this encounter
--- OUTSIDE RECORDS SUMMARY | 2022-10-21 09:00 | XMS_ITS | Encounter Summary ---
:1980 Author Organization [facility] Address [address] [place] [address] Care Team Providers Name Role Phone Aydee Burton CONTROL ROOM AGENT STEP DOWN NURSE Primary Care Provider Aydee Burton CONTROL ROOM AGENT STEP DOWN NURSE Unavailable [phone] Louisa Hood CONTROL ROOM AGENT STEP DOWN NURSE Unavailable [phone] Se Levy AIRPORT SCREENER Unavailable Unavailable Clari Ruiz [facility] Unavailable [phone] Angel Hannah MD Unavailable Lesly Celaya MD Unavailable Tawana Patel MA Unavailable Unavailable Ramses Mcpherson MD Unavailable [phone] Mago Swift SECURITY INSTALLATION SALES TECHNICIAN Unavailable Reason for Visit Reason Onset Date Comments Refill Request 01/10/2022 Encounter Details Date Type Department Care Team Description 01/10/2022 Refill [facility] Aydee Burton, Refill Request [place] CONTROL ROOM AGENT STEP DOWN NURSE [address] [address] [place], [place] [phone] Social History Tobacco Use Types Packs/Day Years [...] How often do you attend restoration or temple services? Never 08/05/2021 Do you [...] at Date Recorded Female 11/09/2021 7:53 PM SHAPING MACHINE TENDER COVID-19 Exposure Response Date Recorded In the last month, have you been in contact with No / Unsure 01/07/2022 2:29 PM SHAPING MACHINE TENDER someone who was confirmed or suspected to have Coronavirus / COVID-19? documented as of this encounter Miscellaneous Notes Telephone Encounter - Aydee Burton, ELADIO STEP DOWN NURSE - 01/11/2022 10:27 PM SHAPING MACHINE TENDER Images from the original note were not included. Prescribed by psych provider. TARA Spivey-BC ING MACHINE TENDER Telephone Encounter - Elizabeth Cancino RN - 01/11/2022 7:07 PM CST Pending Prescriptions: Disp Refills DULoxetine (CYMBALTA) 60 MG capsule Sig: Take 1 capsule (60 mg) by mouth At Bedtime 2 tablets - 120mg total Routing refill request to provider for review/approval because: Medication is reported/historical ING MACHINE TENDER documented in this encounter Plan of Treatment Upcoming Encounters Date Type Specialty Care Team Description 10/21/2022 Office Visit Pulmonology Obdulio Barrera MD [address] [phone] (Wo rk) 10/25/2022 PRE VISIT ENT Charo Burton MD Previsit [address] [place] [address] (Wo rk) 10/25/2022 Office Visit ENT Charo Burton MD [address] [place] [phone] (Wo rk) 10/25/2022 Office Visit ENT Provider, Ent Dysphonia Ice Scraper 10/25/2022 Virtual Visit Pain & Palliative [place] [address] [place], [place] [address] 10/28/2022 Appointment Speech Therapy Anabel Chew, CELINE [address] 765325 (Wo rk) 11/17/2022 Appointment Speech Therapy Anabel Chew SLP [address] [address] (Wo rk) 12/01/2022 Office Visit Pain [place] [address] [facility] [place], [place] [address] (Wo rk) 12/23/2022 Office Visit Neurology Colby Yeung MD [address] [facility] [address] [address] (Wo rk) documented as of this encounter Visit Diagnoses Not on filedocumented in this encounter Additional Health Concerns Assessment Noted Time PHQ-9 Depression Total Score: 06/28/2021 7:03 AM CD T documented as of this encounter Care Teams Bonding Supervisor Relationship Specialty Start Date End Date yAdee Burtno, PCP - General Nurse Practitioner - 05/17/21 CONTROL ROOM AGENT STEP DOWN NURSE Family [address] [place] [address] Aydee Burton, Assigned PCP 04/28/21 CONTROL ROOM AGENT STEP DOWN NURSE [address] [place] [address] Louisa Hood, Assigned Neuroscience 07/11/21 CONTROL ROOM AGENT STEP DOWN NURSE Provider 500 [place], [place] [phone] Se Levy, Lead Emt Dispatcher 08/05/21 05/12/22 Clari Francois Pharmacist Pharmacist 08/06/21 06/07/22 Jocelyn [facility] [address] [place] [address] [place], Assigned Sleep 08/01/21 Angel Turcios, Provider [address] [place] [address] Lesly Celaya MD Assigned Surgical 09/05/[address] [place] [address] Tawana Patel MA [facility] 09/30/21 Worker Ramses Mcpherson 11/07/21 MD Onesimo Provider [address] [place], [place] [address] Mgao Swift [facility] Lead Emt Dispatcher Micro Paleontologist - 08/05/21 Clinical documented as of this encounter
--- OUTSIDE RECORDS SUMMARY | 2022-10-21 09:00 | XMS_ITS | Encounter Summary ---
:1980 Author Organization [facility] Address [address] [place] [address] Care Team Providers Name Role Phone Aydee Burton GRINDER OPERATOR TOOL ACCOUNTING MANAGER CPA Primary Care Provider [phone] Aydee Burton GRINDER OPERATOR TOOL ACCOUNTING MANAGER CPA Unavailable [phone] Louisa Hood GRINDER OPERATOR TOOL ACCOUNTING MANAGER CPA Unavailable [phone] Se Levy RELATIONSHIP MANAGER Unavailable Unavailable lCari Ruiz [facility] Unavailable [phone] Angel Hannah MD Unavailable Lesly Celaya MD Unavailable Tawana Patel MA Unavailable Unavailable Ramses Mcpherson MD Unavailable [phone] Mago Swfit DIETARY AIDE Unavailable Reason for Visit Reason Onset Date Comments Refill Request 01/12/2022 methocarbamol (ROBAX IN) 500 MG tablet Encounter Details Date Type Department Care Team Description 01/12/2022 Refill M [facility] Lucas Anaya Refill Request Management Cindi Urena MD (methocarbamol [address] [place] [address] [address] [facility] (ROBAXIN) 500 MG [address] [place] [address] tablet) [place] [address] [phone] Social History Tobacco Use Types Packs/Day Years [...] How often do you attend anabaptist or orthodoxy services? Never 08/05/2021 Do you [...] at Date Recorded Female 11/09/2021 7:53 PM JEWEL HOLE GAUGER COVID-19 Exposure Response Date Recorded In the last month, have you been in contact with No / Unsure 01/07/2022 2:29 PM JEWEL HOLE GAUGER someone who was confirmed or suspected to have Coronavirus / COVID-19? documented as of this encounter Miscellaneous Notes Telephone Encounter - Lucas Anaya MD - 01/12/2022 10:28 AM JEWEL HOLE GAUGER Methocarbamol refill approved. DO Terri Zheng [facility] L HOLE GAUGER Telephone Encounter - Ashleigh Martinez - 01/12/2022 9:40 AM CST Received fax request from [phone] [facility] [address] Pharmacy requesting refill(s) for methocarbamol (ROBAXIN) 500 MG tablet Last refilled on 12/14/21 Pt last seen on 12/14/21 Next appt scheduled for None Will facilitate refill. GREGORIO Linda [facility] L HOLE GAUGER documented in this encounter Plan of Treatment Upcoming Encounters Date Type Specialty Care Team Description 10/21/2022 Office Visit Pulmonology Obdulio Barrera MD 420 [facility] [address] [place] [address] (Wo rk) 10/25/2022 PRE VISIT ENT Charo Burton MD Previsit [address] [place] [phone] (Wo rk) 10/25/2022 Office Visit Charo Carter MD [address] [place] [address] (Wo rk) 10/25/2022 Office Visit ENT Provider, Jeannette Ent Dysphonia Nutrition Aides Teacher 10/25/2022 Virtual Visit Pain & [place]iative [place] [address] [place], [place] [address] 10/28/2022 Appointment Speech Therapy Anabel Chew, [place] PILOT [address] [place] [address] (Wo rk) 11/17/2022 Appointment Speech Therapy Anabel Chew, CO PILOT [address] [place], [place] [address] (Wo rk) 12/01/2022 Office Visit Pain & [place] [address] [place], [place] [address] (Wo rk) 12/23/2022 Office Visit Neurology Colby Yeung MD [address] [place] [place] [address] (Wo rk) documented as of this encounter Visit Diagnoses Diagnosis Chronic myofascial pain Mylagia and myositis, unspecified Trigger point of shoulder region, unspec ified laterality documented in this encounter Additional Health Concerns Assessment Noted Time PHQ-9 Depression Total Score: 22 06/28/2021 7:03 AM CD T documented as of this encounter Care Teams Layer Out Plate Glass Relationship Specialty Start Date End Date Aydee Burton, PCP - General Nurse Practitioner - 05/17/21 GRINDER OPERATOR TOOL ACCOUNTING MANAGER CPA Family [address] [place] [phone] Aydee Burton, Assigned PCP 04/28/21 GRINDER OPERATOR TOOL ACCOUNTING MANAGER CPA [address] [place] [address] [phone] Louisa Hood, Assigned Neuroscience 07/11/21 GRINDER OPERATOR TOOL ACCOUNTING MANAGER CPA Provider [address] [place], [place] [address] Se Levy, Lead Hospice Nurse 08/05/21 05/12/22 Clari Francois Pharmacist Pharmacist 08/06/21 06/07/22 Jocelyn [facility] [address] [address] [place], Assigned Sleep 08/01/21 Angel Turcios, Provider [address] [place], [place] [phone] Lesly Celaya MD Assigned Surgical 09/05/21 [address] Provider [place], [place] [phone] Tawana Patel MA [facility] 09/30/21 Worker Ramses Mcpherson Assigned OBGYN 11/07/21 MD Onesimo Provider [address] [place], [place] [phone] Mago Swift, [facility] Lead Hospice Nurse Motor And Generator Assembler - 08/05/21 Clinical documented as of this encounter
--- OUTSIDE RECORDS SUMMARY | 2022-10-21 09:00 | XMS_ITS | Encounter Summary ---
:1980 Author Organization [facility] Address [address] [place] [address] Care Team Providers Name Role Phone Aydee Nam SILK CREPE MACHINE OPERATOR HOUSEHOLD COOK Primary Care Provider Aydee Nam SILK CREPE MACHINE OPERATOR HOUSEHOLD COOK Unavailable [phone] Louisa Hood SILK CREPE MACHINE OPERATOR HOUSEHOLD COOK Unavailable [phone] Se Levy COMMUNICATIONS PROGRAMMER Unavailable Unavailable Clari Ruiz [facility] Unavailable [phone] Angel Hannah MD Unavailable Lesly Celaya MD Unavailable Tawana Patel MA Unavailable Unavailable Ramses Mcpherson MD Unavailable [phone] Marleny Maloney Unavailable Unavailable Mago Swift APPRAISER AUDITOR Unavailable Reason for Referral Diagnostic Imaging XR (Routine) - Pending Review Specialty Diagnoses / Procedures Referred By Contact Refer red To Contact Diagnoses Cough Follow-up examination following surgery Reduced chest expansion on inspiration Aydee Nam APRN Procedures XR Chest 2 Views HOUSEHOLD COOK [address] [facility] [place] [address] Referral ID Status Reason Start Date Expiration Date Visits V isits Requested Authorized [id number] Pending 01/14/2022 01/14/2023 1 1 Review SALES REPRESENTATIVE Reason for Visit Reason Comments Pre-Op Exam Encounter Details Date Type Department Care Team Description 01/14/2022 Office Visit [facility] Aydee Nam Preoperati ve examination (Primary Dx); [facility] [place] ELADIO Mendez CNP Left elbow pain; [address] [facility] [address] [facility] [address] related to worker's compensation claim; [place] Follow-up examination following surgery; [place] [address] S/P laparoscopic hysterectomy; [id number] Cough; [phone] Reduced c hest expansion on inspiration; Chest [...] often do you attend oriental orthodox or scientology services? Never 08/05/2021 Do you [...] at Date Recorded Female 11/09/2021 7:53 PM TOUR SALES REPRESENTATIVE COVID-19 Exposure Response Date Recorded In the last month, have you been in contact with No / Unsure 01/14/2022 12:47 PM TOUR SALES REPRESENTATIVE someone who was confirmed or suspected to have Coronavirus / COVID-19? documented as of this encounter Last Filed Vital Signs Vital Sign Reading Time Taken Comments Blood Pressure 102/66 01/14/2022 1:07 PM TOUR SALES REPRESENTATIVE Pulse 103 01/14/2022 1:07 PM TOUR SALES REPRESENTATIVE Temperature 36.1 ??C (96.9 ??F) 01/14/2022 1:07 PM TOUR SALES REPRESENTATIVE Respiratory Rate - - Oxygen Saturation 98% 01/14/2022 1:07 PM TOUR SALES REPRESENTATIVE Inhaled Oxygen Concentration - - Weight 92.1 kg (203 lb) 01/14/2022 1:07 PM TOUR SALES REPRESENTATIVE Height 170.2 cm (5' 7) 01/14/2022 1:07 PM TOUR SALES REPRESENTATIVE Body Mass Index 31.79 01/14/2022 1:07 PM TOUR SALES REPRESENTATIVE documented in this encounter Patient Instructions Patient InstructionsAydee Nam, ELADIO HOUSEHOLD COOK - 01/14/2022 1:10 PM TOUR SALES REPRESENTATIVE Images from the original note were not [...] Swelling, pain or redness in one leg easyfolio last reviewed this educational content on 03/13/2018 ?? [id number] [employer]. All rights reserved. This information is not [...] reviewed this educational content on 04/13/2018 ?? [phone] [employer]. All rights reserved. This information is not [...] list of medicines, including herbal treatments and qurg-wfu-urlkqhb drugs ?? Whether the patient has a [...] having surgery. (If you don't have insurance,call [phone].) ?? Call your clinic if there's any [...] your health care provider. Copyright ?? 2018 [facility]. All rights reserved. Clinically reviewed by Tika Garrett MD. KARALIT [id number] - REV 06/02. SALES REPRESENTATIVE documented in this encounter Progress Notes Aydee Nam APRN CNP - 01/14/2022 1:10 PM CST Images from the original note were not included. [address] [address] Primary Provider: Aydee Nam Pre-op Performing Provider: AYDEE NAM PREOPERATIVE EVALUATION: Today's date: 01/14/2022 Marta Hill is a 41 year old female who presents for a preoperative evaluation. Surgical Information: Surgery/Procedure: Hardware Removal Left Elbow Surgery Location: [facility] Surgeon: Dr Harman Linder Surgery Date: 02/02/2022 Time of Surgery: TBD Where patient plans to recover: At home with family Fax number for surgical facility: [phone] Type of Anesthesia Anticipated: General Assessment & [...] was noted to be positive and this HOUSEKEEPING MANAGER was unable to get stat CT imaging [...] after rule out PE/diagnostic evaluation. Addendum: Elevated O-ndlyd-xlfytqvlhpl CTA is negative for pulmonary embolism. Okay to proceed with upcoming surgery CT. Subjective HPI related to upcoming procedure: Initial surgery was schedule 01/10/22 however 3 days after hysterectomy surgery developed cough, a lot of dry hack coughing; WC injury 12/26/20;Tripped at work and fell, landing forward on elbows. Clinch a snap. c/o tinging in left hand, [...] declined at this time. Preoperative Review of DELIVERY ROOM SUPERVISOR: DELIVERY ROOM SUPERVISOR reviewed - controlled substances reflected in medication [...] GENITOURINARY SURGERY Tubal ligation and ablasion ??? AIR HOLE DRILLER SURGERY not sure tubal ligation and ablasion [...] Range Hold Specimen JIC Extra Green Top ([place] Heparin) Tube Collection Time: 01/14/22 5:17 PM [...] provided to requesting physician. {Provider Resources Preop SmartSet [facility] Preop Guidelines Revised Cardiac Risk Index :48621 SALES REPRESENTATIVE Aydee Nam APRN CNP - 01/14/2022 1:10 [...] preop and EKG to her surgical team. TARA Spivey- SALES REPRESENTATIVE Abril Castaneda RN - 01/14/2022 1:10 PM CST Called and spoke with patient. Advised of Aydee's note. Cleared for surgery. To take psychiatric meds with small sip of water the morning of procedure. Patient stated an understanding and agreed with plan. Faxed pre-op note and EKG Dr. Niyah Allison, Attn: Clemencia. . Abril Castaneda RN [facility] [place] ABRIL CASTANEDA RN on 01/17/2022 at 6:35 PM SALES REPRESENTATIVE documented in this encounter Miscellaneous Notes Result Encounter Note - Aydee Nam APRN CNP - 01/14/2022 1:10 PM TOUR SALES REPRESENTATIVE Note to Staff: please call the patient to explain results. Unfortunately Ddimer is +; stat CT scan with contrast pulmonary embolism rule out now. Please call patient and call imaging to get done at either [facility] or [facility] if not available today she went to see the emergency room. Aydee Nam, DATABASE ENGINEER- SALES REPRESENTATIVE documented in this encounter Plan of Treatment Upcoming Encounters Date Type Specialty Care Team Description 10/21/2022 Office Visit Pulmonology Obdulio Barrera MD [address] [phone] (Wo rk) 10/25/2022 PRE VISIT ENT Charo Burton MD Previsit [address] [place] [address] [phone] (Wo rk) 10/25/2022 Office Visit ENT Charo Burton MD [address] [place] [address] [phone] (Wo rk) 10/25/2022 Office Visit ENT Provider, Ent Dysphonia Home Economics Extension Worker 10/25/2022 Virtual Visit Pain & [place] [address] [place], [place] [address] 10/28/2022 Appointment Speech Therapy Anabel Chew, THEATRE ARTS PROFESSOR [address] 795355 (Wo rk) 11/17/2022 Appointment Speech Therapy Anabel Chew THEATRE ARTS PROFESSOR [address] 765805 (Wo rk) 12/01/2022 Office Visit Pain & [place] [address] [place], [place] [address] (Wo rk) 12/23/2022 Office Visit Neurology Colby Yeung MD [address] [place] [address] (Wo rk) documented as of this encounter Procedures Procedure Name Priority Date/Time Associated Diagnosis Comme nts D DIMER QUANTITATIVE STAT 01/14/2022 1:56 PM S/P laparoscop ic Results for this TOUR SALES REPRESENTATIVE hysterectomy procedure are in Preoperative the results examination section. Cough Follow-up examination following surger y Reduced chest expansion on inspiration Chest pain, unspecified type EKG 12-LEAD COMPLETE Routine 01/14/2022 1:43 PM Cough Results for this W/READ - CLINICS TOUR SALES REPRESENTATIVE Follow-up procedure a re in examination the results following surger y section. Reduced chest expansion on inspiration Chest pain, unspecified type documented in this encounter Results XR Chest 2 Views (01/14/2022 2:27 PM TOUR SALES REPRESENTATIVE) Anatomical Region Laterality Modality Chest Computed Radiography Specimen (Source) Anatomical Location Collection Method / Collectio n Time Received Time / Laterality Volume Impressions 01/14/2022 2:48 PM TOUR SALES REPRESENTATIVE IMPRESSION: There are no acute infiltrates. The cardiac silhouette is not enlarged. Pulmonary vasculature is u nremarkable. TEAGAN LAURENT MD Narrative 01/14/2022 2:48 PM TOUR SALES REPRESENTATIVE CHEST TWO VIEWS 01/14/2022 2:27 PM HISTORY: [...] u nremarkable. TEAGAN LAURENT MD Aydee Nam SILK CREPE MACHINE OPERATOR HOUSEHOLD COOK IMG DIAGNOSTIC IMAGING O RDERABLES (ABNORMAL) D dimer, quantitative (01/14/2022 1:56 PM TOUR SALES REPRESENTATIVE) Patholo gist Method Time Signature D-Dimer 1.33 (H) 0.00 - 01/14/2022 [facility] Quantitative 0.50 3:32 PM TOUR SALES REPRESENTATIVE ug/mL FEU Specimen Anatomical Collection Method / Collection Time Recei edil Time (Source) Location / Volume Laterality Blood STRUCTURE OF RIGHT Venipuncture / 01/14/2022 1:56 03/0 02/2022 1:56 UPPER LIMB / Unknown PM TOUR SALES REPRESENTATIVE PM TOUR SALES REPRESENTATIVE Unknown Narrative [facility] - 01/14/2022 3:32 PM TOUR SALES REPRESENTATIVE This D-dimer assay is intended for use i n conjunction with a clinical pretest probability assessment model to exclude pulmonary embolism (PE) and deep venous thrombosis (DVT) in outpatients suspecte d of PE or DVT. The cut-off value is 0.50 ug/mL FEU. Aydee Nam APRN, CNP LAB - BLOOD ORDERABLES Performing Organization Address City/State/ZIP Code Phon e Number [facility] [place], [place] [phone] [place] [facility] [address] [place] [address] Lab (no room number, 1st floor of clinic) [facility] [place], [place] [phone] [facility] [address] Lab (no room number, 1st floor of clinic) EKG 12-lead complete w/read - Clinics (01/14/2022 1:43 PM TOUR SALES REPRESENTATIVE) Narrative This result has an attachment that is no t available. Aydee Nam APRN HOUSEHOLD COOK ECG ORDERABLES documented in this encounter Visit [...] symptoms involving respiratory sys tem and chest documented in this encounter Additional Health Concerns Infection Onset Date Last Indicated Resolved Time Rule Out COVID-19 01/14/2022 01/14/2022 01/14/2022 6:2 9 PM TOUR SALES REPRESENTATIVE Assessment Noted Time PHQ-9 Depression Total Score: 22 06/28/2021 7:03 AM CD T documented as of this encounter Care Teams Mill Order Scheduler Relationship Specialty Start Date End Date Aydee Nam, PCP - General Nurse Practitioner - 05/17/21 SILK CREPE MACHINE OPERATOR HOUSEHOLD COOK Family [address] [place] [phone] Aydee Nam, Assigned PCP 04/28/21 SILK CREPE MACHINE OPERATOR HOUSEHOLD COOK [address] [place], [place] [phone] Louisa Hood, Assigned Neuroscience 07/11/21 SILK CREPE MACHINE OPERATOR HOUSEHOLD COOK Provider [address] [place] [address] [phone] Se Levy, Lead Weft Straightener 08/05/21 05/12/22 COMMUNICATIONS PROGRAMMERClari Ordonez Pharmacist Pharmacist 08/06/21 06/07/22 [facility] [address] [place], [place] [phone] [place], Assigned Sleep 08/01/21 Angel Turcios, Provider [address] [place] [address] Lesly Celaya MD Assigned Surgical 09/05/21 [address] Provider [place], [place] [address] Tawana Patel MA [facility] Health 09/30/21 Worker Ramses Mcpherson Assigned OBGYN 11/07/21 MD Teagan Provider [address] [place] [address] Marleny Maloney Financial Resource 01/17/22 01/17/22 Worker Mago Swift [facility] Lead Weft Straightener Wood Products Manufacturer - 08/05/21 Clinical documented as of this encounter
--- OUTSIDE RECORDS SUMMARY | 2022-10-21 09:00 | XMS_ITS | Encounter Summary ---
:1980 Author Organization [facility] Address [address] [place] [address] Care Team Providers Name Role Phone Aydee Burton ICE CREAM TRUCK DRIVER FLATBED OWNER OPERATOR Primary Care Provider Aydee Burton ICE CREAM TRUCK DRIVER FLATBED OWNER OPERATOR Unavailable [phone] Louisa Hood ICE CREAM TRUCK DRIVER FLATBED OWNER OPERATOR Unavailable [phone] Se Levy NUTRITION PROGRAM INSTRUCTOR Unavailable Unavailable Clari Ruiz [facility] Unavailable [phone] Angel Hannah MD Unavailable Lesly Celaya MD Unavailable Tawana Patel MA Unavailable Unavailable Ramses Mcpherson MD Unavailable [phone] Mago Swift SPANISH SPEAKING BABYSITTER Unavailable Reason for Visit Reason Comments Surgical Followup Encounter Details Date Type Department Care Team Description 01/07/2022 Office Visit [facility] Ramses Mcpherson Post op check Clinic Sri Echols MD (Primary Dx) [address] [place] [address] [address] [place] [address] [phone] Social History Tobacco Use Types Packs/Day Years [...] How often do you attend advent or hinduism services? Never 08/05/2021 Do you [...] at Date Recorded Female 11/09/2021 7:53 PM GASOLINE PUMP MECHANIC COVID-19 Exposure Response Date Recorded In the last month, have you been in contact with No / Unsure 01/07/2022 2:29 PM GASOLINE PUMP MECHANIC someone who was confirmed or suspected to have Coronavirus / COVID-19? documented as of this encounter Last Filed Vital Signs Vital Sign Reading Time Taken Comments Blood Pressure 112/72 01/07/2022 2:40 PM GASOLINE PUMP MECHANIC Pulse - - Temperature - - Respiratory Rate - - Oxygen Saturation - - Inhaled Oxygen Concentration - - Weight 91.9 kg (202 lb 11.2 oz) 01/07/2022 2:40 PM GASOLINE PUMP MECHANIC Height - - Body Mass Index 31.75 12/28/2021 6:22 AM GASOLINE PUMP MECHANIC documented in this encounter Progress Notes Ramses [...] in 3 week(s) for post op exam Jonah Mcpherson MD LINE PUMP MECHANIC documented in this encounter Nursing Notes Carlene [...] using cuff size regular. Carlene Frazier CMA LINE PUMP MECHANIC documented in this encounter Plan of Treatment Upcoming Encounters Date Type Specialty Care Team Description 10/21/2022 Office Visit Pulmonology Obdulio Barrera MD [address] [facility] [address] [place], [place] [address] (Wo rk) 10/25/2022 PRE VISIT ENT Charo Burton MD Previsit [address] [place] [address] [phone] (Wo rk) 10/25/2022 Office Visit Charo Carter MD [address] [place] [phone] (Wo rk) 10/25/2022 Office Visit ENT Provider, Jeannette Ent Dysphonia Worm Farmer 10/25/2022 Virtual Visit Pain & [place] [address] [place], [place] [address] 10/28/2022 Appointment Speech Therapy Anabel Chew, SENIOR ORACLE ADF DEVELOPER [facility] [address] [facility] [address] [place], [place] [address] (Wo rk) 11/17/2022 Appointment Speech Therapy Anabel Chew, SENIOR ORACLE ADF DEVELOPER [facility] [address] [facility] [address] [place], [place] [phone] (Wo rk) 12/01/2022 Office Visit Pain & [place] [address] [place], [place] [address] (Wo rk) 12/23/2022 Office Visit Neurology Colby Yeung MD [address] [place] [address] (Wo rk) documented as of this encounter Visit Diagnoses Diagnosis Postop check - Primary Follow-up examination, following unspeci fied surgery documented in this encounter Additional Health Concerns Assessment Noted Time PHQ-9 Depression Total Score: 06/28/2021 7:03 AM CD T documented as of this encounter Care Teams Environmental Sampling Technician Relationship Specialty Start Date End Date Aydee Burton, PCP - General Nurse Practitioner - 05/17/21 ICE CREAM TRUCK DRIVER FLATBED OWNER OPERATOR Family [address] [place], [place] [phone] Aydee Burton, Assigned PCP 04/28/21 ICE CREAM TRUCK DRIVER FLATBED OWNER OPERATOR [address] [place], [place] [phone] Louisa Hood, Assigned Neuroscience 07/11/21 ICE CREAM TRUCK DRIVER FLATBED OWNER OPERATOR Provider [address] [place], [place] [phone] Se Levy, Lead Cd Mixer 08/05/21 05/12/22 Clari Francois Pharmacist Pharmacist 08/06/21 06/07/22 Jocelyn [facility] [address] [place], [place] [phone] [place], Assigned Sleep 08/01/21 Angel Turcios, Provider [address] [place] [address] Lesly Celaya MD Assigned Surgical 09/05/21 [address] Provider [place], [place] [address] Tawana Patel MA [facility] 09/30/21 Worker Ramses Mcpherson Assigned OBGYN 11/07/21 MD Onesimo Provider [address] [place], [place] [phone] Mago Swift [facility] Lead Cd Mixer Integrated Circuit Ic Layout Designer - 08/05/21 Clinical documented as of this encounter
--- OUTSIDE RECORDS SUMMARY | 2022-10-21 09:00 | XMS_ITS | Encounter Summary ---
:1980 Author Organization [place] Address [address] [place] [address] Care Team Providers Name Role Phone Aydee Burton AUTO BRAKE MECHANIC CORN DETASSELER Primary Care Provider Aydee Burton AUTO BRAKE MECHANIC CORN DETASSELER Unavailable [phone] Louisa Hood AUTO BRAKE MECHANIC CORN DETASSELER Unavailable [phone] Se Levy FLIGHT RADIO OPERATOR Unavailable Unavailable Clari Ruiz [facility] Unavailable [phone] Angel Hannah MD Unavailable Lesly Celaya MD Unavailable Tawana Patel MA Unavailable Unavailable Ramses Mcpherson MD Unavailable [phone] Mago Swift INDUSTRIAL GAS PRODUCTION OPERATOR Unavailable Encounter Details Date Type Department Care [...] at Date Recorded Female 11/09/2021 7:53 PM INTERIOR WIRER COVID-19 Exposure Response Date Recorded In the last month, have you been in contact with No / Unsure 01/07/2022 2:29 PM INTERIOR WIRER someone who was confirmed or suspected to have Coronavirus / COVID-19? documented as of this encounter Plan of Treatment Upcoming Encounters Date Type Specialty Care Team Description 10/21/2022 Office Visit Pulmonology Obdulio Barrera MD [address] [place] [address] (Wo rk) 10/25/2022 PRE VISIT Charo Carter MD Previsit [address] [place] [address] (Wo rk) 10/25/2022 Office Visit Charo Carter MD [address] [place] [address] (Wo rk) 10/25/2022 Office Visit ENT Provider, Jeannette Ent Dysphonia Employee Adviser 10/25/2022 Virtual Visit Pain & [place] [address] [place], [place] [address] 10/28/2022 Appointment Speech Therapy Anabel Chew, ENTERPRISE SERVICES MANAGER [address] [address] (Wo rk) 11/17/2022 Appointment Speech Therapy Anabel Chew, ENTERPRISE SERVICES MANAGER [address] [address] (Wo rk) 12/01/2022 Office Visit Pain & [place] [address] [place], [place] [address] (Wo rk) 12/23/2022 Office Visit Neurology Colby Yeung MD [address] [place] [address] (Wo rk) documented as of this encounter Visit Diagnoses Not on filedocumented in this encounter Additional Health Concerns Assessment Noted Time PHQ-9 Depression Total Score: 22 06/28/2021 7:03 AM CD T documented as of this encounter Care Teams Programmer Analyst Relationship Specialty Start Date End Date Aydee Burton, PCP - General Nurse Practitioner - 05/17/21 AUTO BRAKE MECHANIC CORN DETASSELER Family [address] [place], [place] [phone] Aydee Burton, Assigned PCP 04/28/21 AUTO BRAKE MECHANIC CORN DETASSELER [address] [place], [place] [phone] Louisa Hood, Assigned Neuroscience 07/11/21 AUTO BRAKE MECHANIC CORN DETASSELER Provider [address] [place] [address] [place] [address] Se Levy, Lead Used Car Lot Attendant 08/05/21 05/12/22 Clari Francois Pharmacist Pharmacist 08/06/21 06/07/22 Jocelyn, [facility] [address] [place] [address] [place], Assigned Sleep 08/01/21 Angel Turcios, Provider [address] [place], [place] [address] Lesly Celaya MD Assigned Surgical 09/05/21 [address] Provider [place], [place] [address] Tawana Patel MA [facility] Health 09/30/21 Worker Ramses Mcpherson Assigned OBGYN 11/07/21 MD Onesimo Provider [address] [place], [place] [phone] Mago Swift [facility] Lead Used Car Lot Attendant Family Coach - 08/05/21 Clinical documented as of this encounter
--- OUTSIDE RECORDS SUMMARY | 2022-10-21 09:00 | XMS_ITS | Encounter Summary ---
:1980 Author Organization [facility] Address [address] [place] [address] Care Team Providers Name Role Phone Aydee Burton APPAREL SALES LEADER CUSTOMER SUPPORT COORDINATOR Primary Care Provider Aydee Burton APPAREL SALES LEADER CUSTOMER SUPPORT COORDINATOR Unavailable [phone] Louisa Hood APPAREL SALES LEADER CUSTOMER SUPPORT COORDINATOR Unavailable [phone] Se Levy OLIVER FILTER OPERATOR Unavailable Unavailable Clari Ruiz [facility] Unavailable [phone] Angel Hannah MD Unavailable Lesly Celaya MD Unavailable Tawana Patel MA Unavailable Unavailable Ramses Mcpherson MD Unavailable [phone] Mago Swift CARTON MAKER Unavailable Reason for Visit Reason Comments Chest Pain Shortness of Breath Encounter Details Date Type Department Care Team Description 01/14/2022 Emergency [facility] Ramses Amezcua hronic cough; [facility] Emergency Dep param Stacy MD Small airways disease [address] [facility], [place] [address] [address] [phone] [address] [place], [place] [phone] (Wo rk) Social History Tobacco Use Types [...] How often do you attend catholic or methodist services? 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/2021 7:53 PM RADIO TALK SHOW HOST COVID-19 Exposure Response Date Recorded In the last month, have you been in contact with No / Unsure 01/14/2022 12:47 PM RADIO TALK SHOW HOST someone who was confirmed or suspected to have Coronavirus / COVID-19? documented as of this encounter Last Filed Vital Signs Vital Sign Reading Time Taken Comments Blood Pressure 128/79 01/14/2022 7:30 PM RADIO TALK SHOW HOST Pulse 78 01/14/2022 7:30 PM RADIO TALK SHOW HOST Temperature 36.1 ??C (97 ??F) 01/14/2022 5:11 PM RADIO TALK SHOW HOST Respiratory Rate 18 01/14/2022 5:11 PM RADIO TALK SHOW HOST Oxygen Saturation 100% 01/14/2022 7:30 PM RADIO TALK SHOW HOST Inhaled Oxygen Concentration - - Weight - - Height - - Body Mass Index - - documented in this encounter Discharge Instructions AttachmentsThe following attachments cannot be sent through Care Everywhere.Lung Problems, Chest and (Swedish)documented in this encounter Medications at Time of [...] mg by mouth 0 MG capsule daily QUEtiapine (SEROQUEL) 100 Take 100 mg by [...] (ROBAXIN) Take 1-1.5 tablets 90 tablet 1 03/12/2021/02/2022 500 MG tabletIndications: (500-750 mg) by Chronic [...] provider's statements to me. Ramses Amezcua MD 01/14/222148 O TALK SHOW HOST documented in this encounter Plan of Treatment Upcoming Encounters Date Type Specialty Care Team Description 10/21/2022 Office Visit Pulmonology Obdulio Barrera MD [address] [facility] [place] [address] [place] [address] (Wo rk) 10/25/2022 PRE VISIT ENT Cahro Burton MD Previsit [address] [place] [address] (Wo rk) 10/25/2022 Office Visit Charo Carter MD [address] [place] [phone] (Estefanía rk) 10/25/2022 Office Visit ENT Provider, Jeannette Ent Dysphonia Track Layer Head 10/25/2022 Virtual Visit Pain & [place]iative [place] [address] [place], [place] [address] 10/28/2022 Appointment Speech Therapy Anabel Chew, FUNCTIONAL DIRECTOR [address] [place] [address] (Wo rk) 11/17/2022 Appointment Speech Therapy Anabel Chew, FUNCTIONAL DIRECTOR [address] [place] [address] (Wo rk) 12/01/2022 Office Visit Pain & [place] [address] [place], [place] [address] (Wo rk) 12/23/2022 Office Visit Neurology Colby Yeung MD [address] [id number] (Wo rk) documented as of this encounter Procedures Procedure Name Priority Date/Time Associated Comments Diagnosis CT CHEST PULMONARY STAT 01/14/2022 6:25 PM Res ults for this EMBOLISM W CONTRAST RADIO TALK SHOW HOST procedur e are in the results section. INFLUENZA A/B & STAT 01/14/2022 5:33 PM Result s for this SARS-COV2 PCR RADIO TALK SHOW HOST procedure are in MULTIPLEX the results section. EXTRA TUBE STAT 01/14/2022 5:17 PM Results f or this RADIO TALK SHOW HOST procedure are i n the results section. EXTRA PURPLE TOP TUBE STAT 01/14/2022 5:17 PM Results for this RADIO TALK SHOW HOST procedure are i n the results section. EXTRA GREEN TOP STAT 01/14/2022 5:17 PM Result s for this (LITHIUM HEPARIN) RADIO TALK SHOW HOST procedure are in TUBE the results section. EXTRA RED TOP TUBE STAT 01/14/2022 5:17 PM Res ults for this RADIO TALK SHOW HOST procedure are i n the results section. EXTRA BLUE TOP TUBE STAT 01/14/2022 5:17 PM Re sults for this RADIO TALK SHOW HOST procedure are i n the results section. CBC WITH PLATELETS STAT 01/14/2022 5:17 PM Res ults for this AND DIFFERENTIAL RADIO TALK SHOW HOST procedure a re in the results section. CBC WITH PLATELETS & STAT 01/14/2022 5:17 PM R esults for this DIFFERENTIAL RADIO TALK SHOW HOST procedure are i n the results section. BASIC METABOLIC PANEL STAT 01/14/2022 5:17 PM Results for this RADIO TALK SHOW HOST procedure are i n the results section. documented in this encounter Results CT Chest Pulmonary Embolism w Contrast (01/14/2022 6:25 PM RADIO TALK SHOW HOST) Anatomical Region Laterality Modality Chest, SUBRAD CT BODY, UMP CT CHEST Comp uted Tomography Specimen (Source) Anatomical Collection Method Collection Time Re ceived Time Location / / Volume Laterality 01/14/2022 6:12 PM RADIO TALK SHOW HOST Impressions 01/14/2022 6:32 PM RADIO TALK SHOW HOST IMPRESSION: 1. ??Mild air trapping often associated with small vessel or small airways disease. Mild fibroatelectasis without effusion or definite infiltrate. 2. ??No pulmonary embolus, aortic aneury sm or dissection. Narrative 01/14/2022 6:32 PM RADIO TALK SHOW HOST EXAM: CT CHEST PULMONARY EMBOLISM W CONTRAST LOCATION: [facility] DATE/TIME: 01/14/2022 6:12 PM INDICATION: PE suspected, [...] CHEST PULMONARY EMBOLISM W CONT RAST LOCATION: [facility] DATE/TIME: 01/14/2022 6:12 PM INDICATION: PE suspected, [...] No pulmonary embolus, aortic aneurysm or dissection. Ramses Amezcua MD IMG CT ORDERABLES Symptomatic; Unknown Influenza A/B & SARS-CoV2 (COVID-19) Virus PCR Multiplex Nasopharyngeal (01/14/2022 5:33 PM RADIO TALK SHOW HOST) Analysis Performed At [facility] Time Signature Influenza A Negative Negative 01/14/2022 LABORATORY PCR 6:29 PM RADIO TALK SHOW HOST Influenza B Negative Negative 01/14/2022 LABORATORY PCR 6:29 PM RADIO TALK SHOW HOST SARS CoV2 PCR Negative Negative 01/14/2022 LABORATORY 6:29 PM RADIO TALK SHOW HOST Comment: NEGATIVE: SARS-CoV-2 (COVID-19) RNA not detected, presumed negative. Specimen Anatomical Location / Collection Method Collection Yeyo e Received Time (Source) Laterality / Volume Swab NASOPHARYNGEAL Non-blood 01/14/2022 5:33 01/14/2022 5:36 STRUCTURE / Unknown Collection / PM RADIO TALK SHOW HOST PM RADIO TALK SHOW HOST Unknown Narrative [facility] - 01/14/2022 6:29 PM RADIO TALK SHOW HOST Testing was performed using the amara SARS-CoV-2 [...] test, if coinfection would change clinical management. [facility] are certified under the Clinical Laboratory Improvement Amendments of 1988 (CLIA-88) as qualified to perform moderate and/or hig h complexity laboratory testing. Ramses Amezcua MD LAB - MICRO GENERAL ORD ERABLES Performing Organization Address City/State/ZIP Code Ph[place] [address] Care Lab [address] Lab (1st floor, no room number) Extra Purple Top Tube (01/14/2022 5:17 PM RADIO TALK SHOW HOST) athologist Signature Hold Specimen [facility] 01/14/2022 LABORATORY 6:46 PM RADIO TALK SHOW HOST Specimen Anatomical Collection Method / Collection Time Recei edil Time (Source) Location / Volume Laterality Blood STRUCTURE OF RIGHT Venipuncture / 01/14/2022 5:17 03/0 02/2022 5:32 UPPER LIMB / Unknown PM RADIO TALK SHOW HOST PM RADIO TALK SHOW HOST Unknown Ramses Amezcua MD LAB - BLOOD ORDERABLES Performing Organization Address City/[facility]/ZIP Code [place] [address] Care Lab [address] Lab (1st floor, no room number) Extra Green Top ([place] Heparin) Tube (01/14/2022 5:17 PM RADIO TALK SHOW HOST) athologist Signature Hold Specimen [facility] 01/14/2022 LABORATORY 6:46 PM RADIO TALK SHOW HOST Specimen Anatomical Collection Method / Collection Time Recei edil Time (Source) Location / Volume Laterality Blood STRUCTURE OF RIGHT Venipuncture / 01/14/2022 5:17 03/0 02/2022 5:32 UPPER LIMB / Unknown PM RADIO TALK SHOW HOST PM RADIO TALK SHOW HOST Unknown Ramses Amezcua MD LAB - BLOOD ORDERABLES Performing Organization Address City/[facility]/[place]IP [place] [address] Care Lab [address] Lab (1st floor, no room number) Extra Red Top Tube (01/14/2022 5:17 PM RADIO TALK SHOW HOST) athologist Signature Hold Specimen [facility] 01/14/2022 [facility] LABORATORY 6:46 PM RADIO TALK SHOW HOST Specimen Anatomical Collection Method / Collection Time Recei edil Time (Source) Location / Volume Laterality Blood STRUCTURE OF RIGHT Venipuncture / 01/14/2022 5:17 03/0 02/2022 5:32 UPPER LIMB / Unknown PM RADIO TALK SHOW HOST PM RADIO TALK SHOW HOST Unknown Ramses Amezcua MD LAB - BLOOD ORDERABLES Performing Organization Address City/State/[place] [address] Care Lab [address] Lab (1st floor, no room number) Extra Blue Top Tube (01/14/2022 5:17 PM RADIO TALK SHOW HOST) athologist Signature Hold Specimen [facility] 01/14/2022 [facility] LABORATORY 6:46 PM RADIO TALK SHOW HOST Specimen Anatomical Collection Method / Collection Time Recei edil Time (Source) Location / Volume Laterality Blood STRUCTURE OF RIGHT Venipuncture / 01/14/2022 5:17 03/0 02/2022 5:32 UPPER LIMB / Unknown PM RADIO TALK SHOW HOST PM RADIO TALK SHOW HOST Unknown Ramses Amezcua MD LAB - BLOOD ORDERABLES Performing Organization Address City/State/[place] [address] Care Lab [address] Lab (1st floor, no room number) (ABNORMAL) CBC with platelets and differential (01/14/2022 5:17 PM RADIO TALK SHOW HOST) [facility] Method Time [facility] WBC Count 5.1 4.0 - 01/14/2022 [facility]AT[facility] 11.0 5:40 PM RADIO TALK SHOW HOST 10e3/uL RBC Count 4.08 3.80 - 01/14/2022 [facility]ORAT[facility] 5.20 5:40 PM RADIO TALK SHOW HOST 10e6/uL Hemoglobin 12.4 11.7 - 01/14/2022 [facility] 15.7 g/dL 5:40 PM RADIO TALK SHOW HOST Hematocrit 40.1 35.0 - 01/14/2022 [facility] 47.0 % 5:40 PM RADIO TALK SHOW HOST MCV 98 78 - 100 01/14/2022 [facility] fL 5:40 PM RADIO TALK SHOW HOST MCH 30.4 26.5 - 01/14/2022 [facility] 33.0 pg 5:40 PM RADIO TALK SHOW HOST MCHC 30.9 (L) 31.5 - 01/14/2022 [facility] 36.5 g/dL 5:40 PM RADIO TALK SHOW HOST RDW 12.3 10.0 - 01/14/2022 [facility] 15.0 % 5:40 PM RADIO TALK SHOW HOST Platelet Count 347 150 - 450 01/14/2022 [facility] 10e3/uL 5:40 PM RADIO TALK SHOW HOST % Neutrophils 69 % 01/14/2022 [facility] 5:40 PM RADIO TALK SHOW HOST % Lymphocytes 13 % 01/14/2022 [facility] 5:40 PM RADIO TALK SHOW HOST % Monocytes 16 % 01/14/2022 [facility] 5:40 PM RADIO TALK SHOW HOST % Eosinophils 0 % 01/14/2022 [facility] 5:40 PM RADIO TALK SHOW HOST % Basophils 1 % 01/14/2022 [facility] 5:40 PM RADIO TALK SHOW HOST % Immature 1 % 01/14/2022 [facility] Granulocytes 5:40 PM RADIO TALK SHOW HOST NRBCs per 100 0 <1 /100 01/14/2022 [facility] WBC 5:40 PM RADIO TALK SHOW HOST Absolute 3.5 1.6 - 8.3 01/14/2022 [facility] Neutrophils 10e3/uL 5:40 PM RADIO TALK SHOW HOST Absolute 0.7 (L) 0.8 - 5.3 01/14/2022 [facility] Lymphocytes 10e3/uL 5:40 PM RADIO TALK SHOW HOST Absolute 0.8 0.0 - 1.3 01/14/2022 [facility] Monocytes 10e3/uL 5:40 PM RADIO TALK SHOW HOST Absolute 0.0 0.0 - 0.7 01/14/2022 [facility] Eosinophils 10e3/uL 5:40 PM RADIO TALK SHOW HOST Absolute 0.1 0.0 - 0.2 01/14/2022 [facility] Basophils 10e3/uL 5:40 PM RADIO TALK SHOW HOST Absolute 0.1 <=0.4 01/14/2022 [facility] Immature 10e3/uL 5:40 PM RADIO TALK SHOW HOST Granulocytes Absolute NRBCs 0.0 10e3/uL 01/14/2022 [facility] 5:40 PM RADIO TALK SHOW HOST Specimen Anatomical Collection Method / Collection Time Recei edil Time (Source) Location / Volume Laterality Blood STRUCTURE OF RIGHT Venipuncture / 01/14/2022 5:17 03/0 02/2022 5:32 UPPER LIMB / Unknown PM RADIO TALK SHOW HOST PM RADIO TALK SHOW HOST Unknown Ramses Amezcua MD LAB - BLOOD ORDERABLES Performing Organization Address City/State/ZIP Code Phon [place] [phone] Care Lab [address] Lab (1st floor, no room number) Basic metabolic panel (01/14/2022 5:17 PM RADIO TALK SHOW HOST) P athologist Signature Sodium 136 133 - 144 01/14/2022 LABORATORY mmol/L 6:09 PM RADIO TALK SHOW HOST Potassium 3.7 3.4 - 5.3 01/14/2022 LABORATORY mmol/L 6:09 PM RADIO TALK SHOW HOST Chloride 102 94 - 109 01/14/2022 LABORATORY mmol/L 6:09 PM RADIO TALK SHOW HOST Carbon Dioxide 31 20 - 32 01/14/2022 LABORATORY (CO2) mmol/L 6:09 PM RADIO TALK SHOW HOST Anion Gap 3 3 - 14 01/14/2022 LABORATORY mmol/L 6:09 PM RADIO TALK SHOW HOST Urea Nitrogen 9 7 - 30 01/14/2022 LABORATORY mg/dL 6:09 PM RADIO TALK SHOW HOST Creatinine 0.63 0.52 - 01/14/2022 LABORATORY 1.04 mg/dL 6:09 PM RADIO TALK SHOW HOST Calcium 9.1 8.5 - 10.1 01/14/2022 LABORATORY mg/dL 6:09 PM RADIO TALK SHOW HOST Glucose 93 70 - 99 01/14/2022 LABORATORY mg/dL 6:09 PM RADIO TALK SHOW HOST GFR Estimate >90 >60 01/14/2022 LABORATORY mL/min/1.7 6:09 PM RADIO TALK SHOW HOST 3m2 Comment: Effective November 02, 2021 eGF Rcr in adults is calculated using the 2020 CKD-EPI creatinine equation which includ es age and gender (Yulia et al., NEJM, DOI: 10.1056/MMNQsb1403162) Specimen Anatomical Collection Method / Collection Time Recei edil Time (Source) Location / Volume Laterality Blood STRUCTURE OF RIGHT Venipuncture / 01/14/2022 5:17 03/0 02/2022 5:32 UPPER LIMB / Unknown PM RADIO TALK SHOW HOST PM RADIO TALK SHOW HOST Unknown Ramses Amezcua MD LAB - BLOOD ORDERABLES Performing Organization Address City/[facility]/ZIP Code Phon [place] [phone] Care Lab [address] Lab (1st floor, no room number) documented in this encounter Visit Diagnoses Diagnosis Chronic cough Cough Small airways disease Other diseases of lung, not elsewhere cl assified documented in this encounter Administered Medications Inactive Administered Medications - up to 3 most recent administrations Medication Order MAR Action Action Date Dose Rate Site iopamidol (ISOVUE-370) solution Given 01/14/2022 6:19 PM RADIO TALK SHOW HOST 80 mLs 500 mL 500 mL, Intravenous, ONCE, On Mon01/14/22 at 1815, For 1 dose predniSONE (DELTASONE) tablet 60 mg Given 01/14/2022 7:31 PM RADIO TALK SHOW HOST 60 mg 60 mg, Oral, ONCE, On Mon01/14/22 at 1920, For 1 dose sodium chloride (PF) 0.9% PF flush 100 m L Given 01/14/2022 6:19 PM RADIO TALK SHOW HOST 90 mLs 100 mL, Intravenous, ONCE, On Mon01/14/22 at 1815, For 1 dose documented in this encounter Active and Recently Administered Medications Times are shown in RADIO TALK SHOW HOST. Scheduled Medication Order 01/12/2022 01/13/2022 01/14/2022 iopamidol [...] COVID-19 01/14/2022 01/14/2022 01/14/2022 6:2 9 PM RADIO TALK SHOW HOST Assessment Noted Time PHQ-9 Depression Total Score: 06/28/2021 7:03 AM CD T documented as of this encounter Care Teams Managing Director Relationship Specialty Start Date End Date Aydee Burton, PCP - General Nurse Practitioner - 05/17/21 APPAREL SALES LEADER [facility] Family [address] [place] [address] [place] [address] Aydee Burton, Assigned PCP 04/28/21 APPAREL SALES LEADER CUSTOMER SUPPORT COORDINATOR [address] [place], [place] [address] Louisa Hood, Assigned Neuroscience 07/11/21 APPAREL SALES LEADER CUSTOMER SUPPORT COORDINATOR Provider [address] [place], [place] [address] Se Levy, Lead Gut Puller 08/05/21 05/12/22 OLIVER FILTER OPERATORClari Ordonez Pharmacist Pharmacist 08/06/21 06/07/22 Jocelyn, [facility] [address] [place], [place] [address] [place], Assigned Sleep 08/01/21 Angel Turcios, Provider [address] [place], [place] [address] Lesly Celaya MD Assigned Surgical 09/05/21 [address] Provider [place], [place] [phone] Tawana Patel MA [facility] Health 09/30/21 Worker Ramses Mcpherson Assigned OBGYN 11/07/21 MD Onesimo Provider [address] [place], [place] [phone] Mago Swift, [facility] Lead Gut Puller Order Entry Administrator - 08/05/21 Clinical documented as of this encounter
--- OUTSIDE RECORDS SUMMARY | 2022-10-21 09:00 | XMS_ITS | Encounter Summary ---
:1980 Author Organization [facility] Address [address] [place] [address] Care Team Providers Name Role Phone Aydee Burton LOFTSMAN GHOST WRITER Primary Care Provider Aydee Burton LOFTSMAN GHOST WRITER Unavailable [phone] Louisa Hood LOFTSMAN GHOST WRITER Unavailable [phone] Se Levy GRINDER MACHINE SETTER Unavailable Unavailable Clari Ruiz [facility] Unavailable [phone] Angel Hannah MD Unavailable Lesly Celaya MD Unavailable Tawana Patel MA Unavailable Unavailable Ramses Mcpherson MD Unavailable [phone] Mago Swift AIRPLANE TESTER Unavailable Encounter Details Date Type Department Care [...] Date Recorded Female 11/09/2021 7:53 PM RESIDENTIAL DOOR INSTALLER COVID-19 Exposure Response Date Recorded In the last month, have you been in contact with No / Unsure 01/19/2022 11:23 AM RESIDENTIAL DOOR INSTALLER someone who was confirmed or suspected to have Coronavirus / COVID-19? documented as of this encounter Plan of Treatment Upcoming Encounters Date Type Specialty Care Team Description 10/21/2022 Office Visit Pulmonology Obdulio Barrera MD [address] [place] [address] (Wo rk) 10/25/2022 PRE VISIT Charo Carter MD Previsit [address] [place] [address] (Wo rk) 10/25/2022 Office Visit Charo Carter MD [address] [place] [address] (Wo rk) 10/25/2022 Office Visit ENT Provider, Jeannette Ent Dysphonia Refractive Surgeon 10/25/2022 Virtual Visit Pain & [place] [address] [place], [place] [address] 10/28/2022 Appointment Speech Therapy Anabel Chew, BRIM STITCHER [address] [phone] (Wo rk) 11/17/2022 Appointment Speech Therapy Anabel Chew, BRIM STITCHER [address] [phone] (Wo rk) 12/01/2022 Office Visit Pain & [place] [address] [place], [place] [address] (Wo rk) 12/23/2022 Office Visit Neurology Colby Yeung MD [address] [place] [address] (Wo rk) documented as of this encounter Visit Diagnoses Not on filedocumented in this encounter Additional Health Concerns Assessment Noted Time PHQ-9 Depression Total Score: 22 06/28/2021 7:03 AM CD T documented as of this encounter Care Teams Baggage Handler Relationship Specialty Start Date End Date Aydee Burton, PCP - General Nurse Practitioner - 05/17/21 LOFTSMAN GHOST WRITER Family [address] [place], [place] [phone] Aydee Burton, Assigned PCP 04/28/21 LOFTSMAN GHOST WRITER [address] [place], [place] [phone] Louisa Hood, Assigned Neuroscience 07/11/21 LOFTSMAN GHOST WRITER Provider [address] [place] [address] [place] [phone] eS Levy, Lead Director Workers Compensation 08/05/21 05/12/22 Clari Francois Pharmacist Pharmacist 08/06/21 06/07/22 Jocelyn, [facility] [address] [place] [address] [place], Assigned Sleep 08/01/21 Angel Turcios, Provider [address] [place], [place] [address] Lesly Celaya MD Assigned Surgical 09/05/21 [address] Provider [place], [place] [address] Tawana Patel MA [facility] Health 09/30/21 Worker Ramses Mcpherson Assigned OBGYN 11/07/21 MD Onesimo Provider [address] [place], [place] [phone] Mago Swift [facility] Lead Director Workers Compensation Customer Support Representative - 08/05/21 Clinical documented as of this encounter
--- OUTSIDE RECORDS SUMMARY | 2022-10-21 09:00 | XMS_ITS | Encounter Summary ---
:1980 Author Organization [place] Address [address] [place] [address] Care Team Providers Name Role Phone Aydee Burton MUSSEL FARMER SALES AGENT BUSINESS SERVICES Primary Care Provider Aydee Burton MUSSEL FARMER SALES AGENT BUSINESS SERVICES Unavailable [phone] Louisa Hood MUSSEL FARMER SALES AGENT BUSINESS SERVICES Unavailable [phone] Se Levy [facility] Unavailable Unavailable Clari Ruiz [facility] Unavailable [phone] Angel Hannah MD Unavailable Lesly Celaya MD Unavailable Tawana Patel MA Unavailable Unavailable Ramses Mcpherson MD Unavailable [phone] Marleny Maloney Unavailable Unavailable Obdulio Barrera MD Unavailable [phone] Obdulio Barrera MD Unavailable [phone] Lesvia Stanley Unavailable Marilia Deluna PhD Unavailable Niyah Decker [facility] Unavailable DlemibriseidaantoineClari [facility] Unavailable JadenLesvia Esther URRUTIA Unavailable Clari Ruiz Jocelyn [facility] Unavailable [phone] Niyah Warner RN Unavailable Delia Avila [facility] Unavailable [phone] Delia Avila [facility] Unavailable [phone] SchwNiyah gleason [facility] Unavailable Jamison Mago Terri [facility] Unavailable SchwNiyah gleason [facility] Unavailable Leela Jarvis [facility] Unavailable SchwNiyah gleason [facility] Unavailable Marvin Miranda MD Unavailable Marvin Miranda MD Unavailable Clari Ruiz [facility] Unavailable Encounter Details Date Type Department [...] get together with friends or relatives? Neel jay 08/05/2021 How often do you attend congregational or methodist services? Never 08/05/2021 Do you [...] at Date Recorded Female 11/09/2021 7:53 PM METERMAN COVID-19 Exposure Response Date Recorded In the last month, have you been in contact with No / Unsure 01/14/2022 12:47 PM METERMAN someone who was confirmed or suspected to have Coronavirus / COVID-19? documented as of this encounter Plan of Treatment Upcoming Encounters Date Type Specialty Care Team Description 10/21/2022 Office Visit Pulmonology Obdulio Barrera MD [address] [facility] [address] [place] [address] (Wo rk) 10/25/2022 PRE VISIT ENT Charo Burton MD Previsit [address] [place] [phone] (Wo rk) 10/25/2022 Office Visit Charo Carter MD [address] [place] [phone] (Wo rk) 10/25/2022 Office Visit ENT Provider, Jeannette Ent Dysphonia Audio Director 10/25/2022 Virtual Visit Pain & [place] [address] [place], [place] [address] 10/28/2022 Appointment Speech Therapy Anabel Chew, NISSAN SALES CONSULTANT [address] [place] [address] (Wo rk) 11/17/2022 Appointment Speech Therapy Anabel Chew, NISSAN SALES CONSULTANT [facility] [address] [facility] [address] [place], [place] [phone] (Wo rk) 12/01/2022 Office Visit Pain [place] [address] [facility] [address] [place], [place] [address] (Wo rk) 12/23/2022 Office Visit Neurology Colby Yeung MD [address] [address] (Wo rk) documented as of this encounter Visit Diagnoses Not on filedocumented in this encounter Additional Health Concerns Infection Onset Date Last Indicated Resolved Time Rule Out COVID-19 01/14/2022 01/14/2022 01/14/2022 6:2 9 PM METERMAN Rule Out COVID-19 03/08/2022 03/08/2022 03/08/2022 4:1 9 PM CDT Rule Out Pertussis 03/08/2022 03/08/2022 03/09/2022 9: 56 AM CDT Rule Out Pertussis 04/05/2022 04/05/2022 04/06/2022 10 :34 AM CDT Assessment Noted Time PHQ-9 Depression Total Score: 22 06/28/2021 7:03 AM CD T documented as of this encounter Care Teams Set Up Mechanic Stamping Machines Relationship Specialty Start Date End Date Aydee Burton PCP - General Nurse Practitioner - 05/17/21 ELADIO Mendez SALES AGENT BUSINESS SERVICES Family [address] [place] [phone] Aydee Burton Assigned PCP 04/28/21 ELADIO Mendez SALES AGENT BUSINESS SERVICES [address] [place], [place] [phone] Louisa Hood Assigned Neuroscience 07/11/21 ELADIO Recinos SALES AGENT BUSINESS SERVICES Provider [address] [place] [address] Se Levy, Lead Internal Control Manager 08/05/21 05/12/22 Clari Francois Pharmacist Pharmacist 08/06/21 06/07/22 Jocelyn, [facility] [address] [place] [address] [place], Assigned Sleep 08/01/21 Angel Turcios, Provider [address] [place] [address] Lesly Celaya MD Assigned Surgical 09/05/21 [address] [place] [address] Tawana Patel, [facility] 09/30/21 MA Worker Ramses Mcpherson Assigned OBGYN 11/07/21 MD Onesimo Provider [address] [place] [address] Marleny Maloney Financial Resource 01/17/22 01/17/22 Worker Obdulio Barrera MD Critical Care 01/24/22 MD Leo [address] [place] [address] Obdulio Barrera Assigned Pulmonology 02/06/22 MD Leo Provider [address] [place] [address] Lesvia Stanley, Cardiac Rehabilitation 03/03/22 03/03/23 EP Therapist [facility] [address] [facility] [place] [address] Marilia Deluna, Assigned Behavioral 02/20/22 [facility] Health Provider [address] [place] [address] Niyah Decker, [facility] Pharmacist Pharmacist 03/07/22 [address] [facility] [address] [place], [place] [phone] Clari Poole, Pharmacist Pharmacist 03/07/22 06/15/22 [facility] [address] [facility] [address] [place], [place] [phone] Lesvia Stanley, Cardiac Rehabilitation 03/17/22 03/17/23 EP Therapist [facility] [address] [facility] [place] [address] [place], [place] [phone] Clari Ruiz Assigned MTM 04/09/22 05/27/22 Jocelyn [facility] Pharmacist [address] [place], [place] [phone] Niyah Warner, Lead Internal Control Manager Primary Care - CC 06/27/22 RN Delia Avila Pharmacist Pharmacist 06/07/22 Mel [facility] [address] [place] [address] Delia Avila Assigned MTM 06/11/22 06/24/22 Mel [facility] Pharmacist [address] [place], [place] [phone] Niyah Decker, [facility] Assigned MTM 05/28/22 06/10/22 420 [facility] Pharmacist [address] [place], [place] [phone] Mago Swift, Lead Internal Control Manager Broker Assistant - 08/05/21 [facility] Clinical Niyah Decker, [facility] Assigned MTM 06/25/22 07/29/22 [address] [facility] Pharmacist [address] [place], [place] [phone] Leela Jarvis, [facility] Pharmacist 07/26/22 05/15/23 [address] [facility] [address] [place] [phone] Niyah Decker [facility] Assigned MTM 08/10/22 09/16/22 [address] [facility] Pharmacist [address] [place], [place] [phone] Marvin Miranda MD Gastroenterology 09/21/22 MD [address] [facility] [address] [place] [address] Marvin Miranda, Assigned 10/01/22 Gastroenterology [address] [facility] Provider [address] [place] [address] Clari Ruiz Assigned MTM 09/17/22 Jocelyn [facility] Pharmacist [address] [place] [address] documented as of this encounter
--- OUTSIDE RECORDS SUMMARY | 2022-10-21 09:00 | XMS_ITS | Encounter Summary ---
:1980 Author Organization [place] Address [address] [place] [address] Care Team Providers Name Role Phone Aydee Burton INVENTORY SPECIALIST ELECTRICAL DRAFTER Primary Care Provider Aydee Burton INVENTORY SPECIALIST ELECTRICAL DRAFTER Unavailable [phone] Louisa Hood INVENTORY SPECIALIST ELECTRICAL DRAFTER Unavailable [phone] Se Levy BILLET INSPECTOR Unavailable Unavailable Clari Ruiz [facility] Unavailable [phone] Angel Hannah MD Unavailable Lesly Celaya MD Unavailable Tawana Patel MA Unavailable Unavailable Ramses Mcpherson MD Unavailable [phone] Obdulio Barrera MD Unavailable [phone] Mago Swift WASTEWATER DESIGN ENGINEER Unavailable Reason for Referral Medication Prior Authorization - Closed Specialty Diagnoses / Procedures Referred By Contact Refer red To Contact Diagnoses Wheezing Pulmonary air trapping Aydee Burton APRN ELECTRICAL DRAFTER [address] [place] [address] Referral ID Status Reason Start Date Expiration Date Visits Requ ested Visits Authorized [id number] Closed 1 1 onsultation (Priority: 1-2 Weeks) - Closed Specialty Diagnoses / Procedures Referred By Contact Refer red To Contact Pulmonary Disease Diagnoses Cough Wheezing Pulmonary air trapping Aydee Burton [facility] INVENTORY SPECIALIST ELECTRICAL DRAFTER [place] [address] [address] [place] [address] Phone: Referral ID Status Reason Start Date Expiration Date Visits Requ ested Visits Authorized [id number] Closed 01/19/2022 01/19/2023 1 1 V Testing (Routine) - Closed Specialty Diagnoses / Procedures Referred By Contact Refer red To Contact Diagnoses Chest pain, unspecified type Wheezing Pulmonary air trapping Aydee Burton APRN Procedures Leadless food general manager 8 to 14 Days ZZHC EXT ECG > 48HR TO 21 DAY RCRD W/CONECT INTL RCRD ZZC EXT ECG > 48HR TO 21 DAY REVIEW AND INTERPRETATN OR EXT ECG > 48HR TO 21 DAY RCRD W/CONECT INTL RCRD ELECTRICAL DRAFTER OR EXT ECG > 48HR TO 21 DAY REVIEW AND INTERPRETATN HC EXT ECG > 48HR TO 21 DAY RCRD W/CONECT INTL RCRD [address] [place] [address] Referral ID Status Reason Start Date Expiration Date Visits Requ ested Visits Authorized [id number] Closed 01/19/2022 01/19/2023 1 1 OGIC NURSE Reason for Visit Reason Comments ER F/U Encounter Details Date Type Department Care Team Description 01/19/2022 Office Visit [facility] Aydee Burton Cough (Meldoy galdamez Dx); [facility] ELADIO Mendez ELECTRICAL DRAFTER Chest pain, unspecified type; [address] [facility] [address] [facility] [address] Wheezi ng; [place] [address] Pulmonary air trapping; [place], [place] [address] Shortness of breath [id number] [phone] Social History Tobacco Use Types Packs/Day Years [...] How often do you attend mandaeism or jewish services? Never 08/05/2021 Do you [...] at Date Recorded Female 11/09/2021 7:53 PM UROLOGIC NURSE COVID-19 Exposure Response Date Recorded In the last month, have you been in contact with No / Unsure 01/31/2022 7:56 AM CDT someone who was confirmed or suspected to have Coronavirus / COVID-19? documented as of this encounter Last Filed Vital Signs Vital Sign Reading Time Taken Comments Blood Pressure 116/76 01/19/2022 11:44 AM UROLOGIC NURSE Pulse 120 01/19/2022 11:44 AM UROLOGIC NURSE Temperature 36.6 ??C (97.9 ??F) 01/19/2022 11:44 AM UROLOGIC NURSE Respiratory Rate - - Oxygen Saturation 95% 01/19/2022 11:44 AM UROLOGIC NURSE Inhaled Oxygen Concentration - - Weight 93.9 kg (207 lb) 01/19/2022 11:44 AM UROLOGIC NURSE Height - - Body Mass Index 32.42 01/14/2022 1:07 PM UROLOGIC NURSE documented in this encounter Patient Instructions Patient InstructionsAydee Burton, ELADIO ELECTRICAL DRAFTER - 01/19/2022 11:50 AM UROLOGIC NURSE Images from the original note were not [...] often with soap and water. Use hand line technician when you can???t wash your hands. Stay [...] better, or get worse ?? New symptoms [email or web address] last reviewed this educational content on 02/11/2019 ?? [id number] [employer]. All rights reserved. This information is not intended as a substitute for professional medical care. Always follow your healthcare professional's instructions. OGIC NURSE documented in this encounter Progress Notes Aydee [...] 12-lead complete w/read - Clinics - Leadless food general manager 8 to 14 Days - budesonide-formoterol (SYMBICORT) 160-4.5 MCG/ACT Inhaler Dispense: 10.2 g; Refill: 11 - albuterol (PROVENTIL) (2.5 MG/3ML) 0.083% neb solution Dispense: 90 mL; Refill: 5 - Nebulizer and Supplies Order for DME - ONLY FOR DME Return in about 5 days (around 01/24/2022) for Recheck. Aydee Burton APRN CNP [facility] Marta is a 41 year old who presents for the following health issues HPI ED/UC Followup: Facility: [facility] Date of visit: 01/14/2022 Reason for [...] Office Visit Pulmonology Obdulio Barrera MD [address] [place] [phone] (Wo rk) 10/25/2022 PRE VISIT Charo Carter MD Previsit [address] [place] [phone] (Wo rk) 10/25/2022 Office Visit Charo Carter MD [address] [place] [phone] (Estefanía casanova) 10/25/2022 Office Visit ENT Provider, Jeannette Ent Dysphonia Package Dyeing Machine Operator 10/25/2022 Virtual Visit Pain & [place] [address] [place], [place] [address] 10/28/2022 Appointment Speech Therapy Anabel Chew, CELINE [address] [phone] (Wo rk) 11/17/2022 Appointment Speech Therapy Anabel Chew SLP [address] [phone] (Wo rk) 12/01/2022 Office Visit Pain & [place] [address] [place], [place] [address] (Wo rk) 12/23/2022 Office Visit Neurology Colby Yeung MD [address] [place], [place] [address] (Wo rk) Scheduled Referrals Name Type Priority [...] . documented in this encounter Results LEADLESS SOLAR/RENEWABLE ENERGY SALES APPLICATION AND INTERP 8 TO 14 DAYS (01/20/2022 2:14 PM UROLOGIC NURSE) Anatomical Region Laterality Modality Other Specimen (Source) Anatomical Location Collection Method / Collectio n Time Received Time / Laterality Volume Narrative This result has an attachment that is no t available. Aydee Burton APRN, CNP [facility] [place] EKG 12-lead complete w/read - Clinics (01/19/2022) Narrative This result has an attachment that is no t available. Aydee Burton APRN, CNP ECG ORDERABLES documented in this encounter Visit Diagnoses Diagnosis Cough - Primary Chest pain, unspecified type Wheezing Pulmonary air trapping Shortness of breath documented in this encounter Additional Health Concerns Assessment Noted Time PHQ-9 Depression Total Score: 22 06/28/2021 7:03 AM CD T documented as of this encounter Care Teams Regional Property Manager Relationship Specialty Start Date End Date Aydee Burton, PCP - General Nurse Practitioner - 05/17/21 INVENTORY SPECIALIST ELECTRICAL DRAFTER Family [address] [place], [place] [phone] Aydee Burton, Assigned PCP 04/28/21 INVENTORY SPECIALIST ELECTRICAL DRAFTER [address] [place], [place] [address] Louisa Hood, Assigned Neuroscience 07/11/21 INVENTORY SPECIALIST ELECTRICAL DRAFTER Provider [address] [place], [place] [phone] Se Levy, Lead Glassworker 08/05/21 05/12/22 Clari Francois Pharmacist Pharmacist 08/06/21 06/07/22 Jocelyn, [facility] [address] [place], [place] [address] [place], Tone Sleep 08/01/21 Angel Turcios, Provider [address] [place], [place] [address] Lesly Celaya MD Assigned Surgical 09/05/21 [address] Provider [place], [place] [phone] Tawana Patel MA [facility] 09/30/21 Worker Ramses Mcpherson Assigned OBGYN 11/07/21 MD Onesimo Provider [address] [place], [place] [phone] Obdulio Barrera MD Critical Care 01/24/22 420 [facility] [address] [place], [place] [phone] Mago Swift, [facility] Lead Glassworker Seismograph Recorder - 08/05/21 Clinical documented as of this encounter
--- OUTSIDE RECORDS SUMMARY | 2022-10-21 09:00 | XMS_ITS | Encounter Summary ---
:1980 Author Organization [facility] Address [address] [place] [address] Care Team Providers Name Role Phone Aydee Burton OFFICE SERVICES MANAGER INSIDE OUTSIDE SALES REPRESENTATIVE Primary Care Provider [phone] Aydee Burton OFFICE SERVICES MANAGER INSIDE OUTSIDE SALES REPRESENTATIVE Unavailable [phone] Louisa Hood OFFICE SERVICES MANAGER INSIDE OUTSIDE SALES REPRESENTATIVE Unavailable [phone] Se Levy BOLT MAKER Unavailable Unavailable Clari Ruiz [facility] Unavailable [phone] Angel Hannah MD Unavailable Lesly Celaya MD Unavailable Tawana Patel MA Unavailable Unavailable Ramses Mcpherson MD Unavailable [phone] Mago Swift CAFE SERVER Unavailable Reason for Visit Auth/Cert Specialty Diagnoses / Procedures Referred By Contact Refer red To Contact Surgery Diagnoses Menorrhagia Dysmenorrhea Dyspareunia in female Menorrhagia [N92.0] Dysmenorrhea [N94.6] Dyspareunia in female [N94.10] Rh Periop Services Procedures Z LAPAROSCOPY W TOT HYSTERECT UTERUS 250 GRAM OR LESS ZZ LAPAROSCOPY TOTAL HYSTERECTOMY UTERUS > 250 GRAM TOTAL LAPAROSCOPIC HYSTERECTOMY [address] [place], [place] [address] Phone: Fax: Referral ID Status Reason Start Date Expiration Date Visits Requ ested Visits Authorized [id number] 1 1 Encounter Details Date Type Department Care Team Description 12/28/2021 Anesthesia Event [facility] Phillip Pereira, DO PeriOp Services [facility] [address] [place] [phone] [facility] [phone] 20 [place], [place] [address] (Wo rk) Anesthesia Record Procedure Summary Procedure Name Responsible Anesthesia Start Anesthesia Stop Anesthesiologist Time Time TOTAL LAPAROSCOPIC Phillip PereiraDO 12/28/21 0731 12/28/21 0934 HYSTERECTOMY WITH BILATERAL [...] 0934 An Stop Electronically s igned by ELADIO Johnson on December 28, 2021 9:34 AM [...] 1357; 10/12/21 1357 by Bilateral; Leg; Leroy Aragoni-strips on AMINAH Gómez mulitple lipomas Incision/Surgical Site 10/12/21; 1357; 10/12/21 1357 by Bilateral; Arm; Leroy Aragon steri-strips on AMINAH Gómez multiple lipoma excision sites Incision/Surgical Site 10/12/21; 1357; 10/12/21 1357 by Bilateral; Back; Leroy Aragon-strip on lipoma AMINAH Gómez excision site Incision/Surgical Site 12/28/21; 0906; 12/28/21 0906 by Vagina; peripad Angle Bustillos RN Incision/Surgical Site 12/28/21; 0906; 12/28/21 0906 by Bilateral; Abdomen; Angle Bustillos steris and bandaids RN x3, 2x2 Peripheral IV 12/28/21; 0634; 20 G; 12/28/21 0634 by 12/28/21 1303 by BD; Left, Posterior; Daniela Miller, Angela Handley, Hand; Chlorhexidine; RN None; Tolerated well ETT Placement Date: 12/28/21 0750 by 12/28/21 0930 b y 12/28/21; Placement Ni Landry Crystal Time: 0750 (created ELADIO Espino BALLISTIC EXPERT ELADIO Espino NA via procedure documentation); Mask Ventilation: 1; Induction Type: Intravenous; Ease of Intubation: Easy; Technique: Direct laryngoscopy; ETT Type: Single; Tube Size: 7 mm; DL Blade Size: Machado 2; Grade View: 1; Adjucts: Stylet; Placement Person: BALLISTIC EXPERT; Attempts: 1; Depth: 22 cm Urethral Catheter 12/28/21; 0757; No; 12/28/21 0757 by 12/28/21 0918 by /GI/MR TEACHER Pelvic Angle Bustillos, Angle Bustillos, Procedure; 16 [...] How often do you attend shinto or roman catholic services? Never 08/05/2021 Do [...] at Date Recorded Female 11/09/2021 7:53 PM GUNSMITH APPRENTICE COVID-19 Exposure Response Date Recorded In the last month, have you been in contact with No / Unsure 12/28/2021 5:49 AM GUNSMITH APPRENTICE someone who was confirmed or suspected to [...] Burton MD December 28, 2021 1:40 PM MITH APPRENTICE Anesthesia Procedure Notes - Ni Landry APRN BALLISTIC EXPERT - 12/28/2021 7:50 AM CSTAssociated Order(s): Airway Airway Patient location during procedure: OR Staff - BALLISTIC EXPERT: Ni Davies APRN BALLISTIC EXPERT Performed By: BALLISTIC EXPERT Consent for Airway Urgency: elective Indications and [...] tape Ease of procedure: easy Dentition: Intact MITH APPRENTICE Anesthesia Preprocedure Evaluation - Phillip Pereira, DO [...] GENITOURINARY SURGERY Tubal ligation and ablasion ??? MR TEACHER SURGERY not sure tubal ligation and ablasion [...] and realistic alternatives discussed. Questions answered and patient/sales representative marine supplies(s) expressed understanding. - Discussed: - Discussed with: Patient Postoperative Care Pain management: IV analgesics, Oral pain medications, Multi-modal analgesia. PONV prophylaxis: Ondansetron (or other 5HT-3), Dexamethasone or Solumedrol Comments: Phillip Preeira DO MITH APPRENTICE documented in this encounter Miscellaneous Notes Anesthesia [...] APRN CRNA December 28, 2021 9:35 AM MITH APPRENTICE documented in this encounter Plan of Treatment Upcoming Encounters Date Type Specialty Care Team Description 10/21/2022 Office Visit Pulmonology Obdulio Barrera MD [address] [facility] [address] [place], [place] [phone] (Wo rk) 10/25/2022 PRE VISIT ENT Charo Burton MD Previsit [address] [place], [place] [phone] (Wo rk) 10/25/2022 Office Visit ENT Charo Burton MD [address] [place], [place] [phone] (Wo rk) 10/25/2022 Office Visit ENT Provider, Jeannette Ent Dysphonia Child Care Team Lead 10/25/2022 Virtual Visit Pain & [place] [address] [place], [place] [address] 10/28/2022 Appointment Speech Therapy Anabel Chew, PSYCHIATRIC CLINICIAN [address] [place], [place] [address] (Wo rk) 11/17/2022 Appointment Speech Therapy Anabel Chew, PSYCHIATRIC CLINICIAN [address] [place], [place] [address] (Wo rk) 12/01/2022 Office Visit Pain & [place] [address] [place], [place] [address] (Wo rk) 12/23/2022 Office Visit Neurology Colby Yeung MD [address] [place] [phone] (Wo rk) documented as of this encounter Procedures Procedure Name Priority Date/Time Associated Comments Diagnosis ANE AIRWAY ETT Routine 12/28/2021 7:50 AM Results for this PERFORMABLE GUNSMITH APPRENTICE procedure are i n the results section. documented in this encounter Results ANE AIRWAY ETT PERFORMABLE (12/28/2021 7:50 AM GUNSMITH APPRENTICE) Narrative Ni Landry APRN BALLISTIC EXPERT - 12/28 7:50 AM GUNSMITH APPRENTICE Ni Davies APRN BALLISTIC EXPERT ? 12/28/2021 ??7:50 AM Airway ? Patient location during procedure : OR Staff - ? BALLISTIC EXPERT: Ni Davies APRN CRNA ? Performed By: BALLISTIC EXPERT Consent for Airway ? Urgency: elective Indications [...] dexamethasone (DECADRON) injection Given 12/28/2021 7:36 AM GUNSMITH APPRENTICE 8 mg Intravenous, PRN, Administer over 1 Minutes, Starting on Mon12/28/21 at 0736, Anesthesia Intra-op fentaNYL (PF) (SUBLIMAZE) injection Given 12/28/2021 7:36 AM GUNSMITH APPRENTICE 100 mcg Intravenous, PRN, Administer over 3-5 Minutes, Starting on Mon12/28/21 at 0736, Anesthesia Intra-op glycopyrrolate (ROBINUL) injection Given 12/28/2021 9:15 AM GUNSMITH APPRENTICE 0.8 mg Intravenous, PRN, Administer over 1-2 Minutes, Starting on Mon12/28/21 at 0736, Anesthesia Intra-op Given 12/28/2021 7:36 AM GUNSMITH APPRENTICE 0.2 mg HYDROmorphone (DILAUDID) injection Given 12/28/2021 8:08 AM GUNSMITH APPRENTICE 1 mg Intravenous, PRN, Starting on Mon12/28/21 at 0808, Anesthesia Intra-op lactated ringers infusion New Bag 12/28/2021 9:23 AM GUNSMITH APPRENTICE Intravenous, CONTINUOUS PRN, Anesthesia Intra-op, Starting on Mon12/28/21 at 0710, Until Mon12/28/21 at 0934 New Bag 12/28/2021 7:10 AM GUNSMITH APPRENTICE lidocaine 1 % injection Given 12/28/2021 7:36 AM GUNSMITH APPRENTICE 30 mg Intravenous, PRN, Starting on Mon12/28/21 at 0736, Anesthesia Intra-op midazolam (VERSED) injection Given 12/28/2021 7:31 AM GUNSMITH APPRENTICE 1 mg Intravenous, Administer over 2 Minutes, PRN, Starting on Mon12/28/21 at 0731, Anesthesia Intra-op neostigmine (PROSTIGMINE) injection Given 12/28/2021 9:15 AM GUNSMITH APPRENTICE 4 mg Intravenous, PRN, Starting on Mon12/28/21 at 0915, Anesthesia Intra-op ondansetron (ZOFRAN) injection Given 12/28/2021 9:17 AM GUNSMITH APPRENTICE 4 mg Intravenous, PRN, Administer over 2-5 Minutes, Starting on Mon12/28/21 at 0917, Anesthesia Intra-op propofol (DIPRIVAN) injection 10 mg/mL v ial Given 12/28/2021 7:36 AM GUNSMITH APPRENTICE 200 mg Intravenous, PRN, Starting on Mon12/28/21 at 0736, Anesthesia Intra-op propofol (DIPRIVAN) injection New Bag 12/28/2021 7:56 AM 50 mc g/kg/min 27.66 mL/hr 10 mg/mL vial GUNSMITH APPRENTICE Intravenous, CONTINUOUS PRN, Starting on Mon12/28/21 at 0756, Anesthesia Intra-op rocuronium injection Given 12/28/2021 7:36 AM GUNSMITH APPRENTICE 40 mg Intravenous, PRN, Starting on Mon12/28/21 at 0736, Anesthesia Intra-op documented in this encounter Additional Health Concerns Assessment Noted Time PHQ-9 Depression Total Score: 06/28/2021 7:03 AM CD T documented as of this encounter Care Teams Feed Elevator Worker Relationship Specialty Start Date End Date Aydee Burton, PCP - General Nurse Practitioner - 05/17/21 OFFICE SERVICES MANAGER INSIDE OUTSIDE SALES REPRESENTATIVE Family [address], [place] [phone] Aydee Burton, Assigned PCP 04/28/21 OFFICE SERVICES MANAGER INSIDE OUTSIDE SALES REPRESENTATIVE [address] [place] [address] Louisa Hood, Assigned Neuroscience 07/11/21 OFFICE SERVICES MANAGER INSIDE OUTSIDE SALES REPRESENTATIVE Provider [address] [place], [place] [phone] Se Levy, Lead Academic Dean 08/05/21 05/12/22 BOLT MAKERClrai Ordonez Pharmacist Pharmacist 08/06/21 06/07/22 Jocelyn, [facility] [address] [place], [place] [phone] [place], Assigned Sleep 08/01/21 Angel Turcios, Provider [address] [place], [place] [phone] Lesly Celaya MD Assigned Surgical 09/05/21 [address] [place] [place] [address] Tawana Patel MA [facility] [place] [facility] Health 09/30/21 Worker Ramses Mcpherson OBValerio 11/07/21 MD Onesimo Provider [address] [place] [address] Mago Swift [facility] Lead Academic Dean Fiberglass Tube Molder - 08/05/21 Clinical documented as of this encounter
--- OUTSIDE RECORDS SUMMARY | 2022-10-21 09:00 | XMS_ITS | Encounter Summary ---
:1980 Author Organization [facility] Address [address] [place] [address] Care Team Providers Name Role Phone Aydee Burton SLIP SHEETER TUBE MOLDER FIBERGLASS Primary Care Provider Aydee Burton SLIP SHEETER TUBE MOLDER FIBERGLASS Unavailable [phone] Louisa Hood SLIP SHEETER TUBE MOLDER FIBERGLASS Unavailable [phone] Se Levy RIVET DRIVER Unavailable Unavailable Clari Ruiz [facility] Unavailable Angel Hannah MD Unavailable Lesly Celaya MD Unavailable Tawana Patel MA Unavailable Unavailable Ramses Mcpherson MD Unavailable [phone] Mago Swift SVP MONETIZATION Unavailable Reason for Visit Diagnostic Imaging XR (Routine) - Pending Review Specialty Diagnoses / Procedures Referred By Contact Refer red To Contact Diagnoses Cough Follow-up examination following surgery Reduced chest expansion on inspiration Aydee Burton APRN Procedures XR Chest 2 Views TUBE MOLDER FIBERGLASS [address] [place] [address] Referral ID Status Reason Start Date Expiration Date Visits V cassidy Requested Authorized [id number] Pending 01/14/2022 01/14/2023 1 1 Review Encounter Details Date Type Department Care Team Description 01/14/2022 Ancillary [facility] Micheal Aydee Cough; Procedure [facility] [place] ELADIO Mendez Follow-up examination follow ing surgery; [address] [place] [address] TUBE MOLDER FIBERGLASS Reduced chest expansion on [facility] [address] [place] [phone] [place], [place] [phone] [id number] Social History Tobacco Use Types Packs/Day Years [...] at Date Recorded Female 11/09/2021 7:53 PM CABLE MOCK UP ASSEMBLER COVID-19 Exposure Response Date Recorded In the last month, have you been in contact with No / Unsure 01/14/2022 12:47 PM CABLE MOCK UP ASSEMBLER someone who was confirmed or suspected to have Coronavirus / COVID-19? documented as of this encounter Miscellaneous Notes Result Encounter Note - Aydee Burton APRN CNP - 01/14/2022 1:45 PM CABLE MOCK UP ASSEMBLER Dear Marta, Here is a summary of your recent test results: Chest xray was normal. For additional lab test information, [email or web address].org is an excellent reference. In addition, here is a list of due or overdue Health Maintenance reminders: There are no preventive care reminders to display for this patient. Please call us at [phone] (or use Surveypal) to address the above recommendations if needed. Thank you for choosing [facility]. It was an honor and a privilege to participate in your care. Healthy regards, TARA Spivey [employer] [place] MOCK UP ASSEMBLER documented in this encounter Plan of Treatment Upcoming Encounters Date Type Specialty Care Team Description 10/21/2022 Office Visit Pulmonology HollyObdulio moyer MD [address] [place] [phone] (Wo rk) 10/25/2022 PRE VISIT ENT Charo Burton MD Previsit [address] [place] [phone] (Wo rk) 10/25/2022 Office Visit Charo Carter MD [address] [place] [phone] (Estefanía casanova) 10/25/2022 Office Visit ENT Provider, Jeannette Ent Dysphonia Postal Supervisor 10/25/2022 Virtual Visit Pain & [place] [address] [place], [place] [address] 10/28/2022 Appointment Speech Therapy Anabel Chew, CELINE [address] [phone] (Wo rk) 11/17/2022 Appointment Speech Therapy Anabel Chew SLP [address] [address] (Wo rk) 12/01/2022 Office Visit Pain & [place] [address] [place], [place] [address] (Wo rk) 12/23/2022 Office Visit Neurology Colby Yeung MD [address] [place], [place] [phone] (Wo rk) documented as of this encounter Procedures Procedure Name Priority Date/Time Associated Diagnosis Comme nts XR CHEST 2 VIEWS Routine 01/14/2022 2:27 PM Cough Results for this CABLE MOCK UP ASSEMBLER Follow-up examination proced ure are in following surger y the results Reduced chest section. expansion on inspiration documented in this encounter Results XR Chest 2 Views (01/14/2022 2:27 PM CABLE MOCK UP ASSEMBLER) Anatomical Region Laterality Modality Chest Computed Radiography Specimen (Source) Anatomical Location Collection Method / Collectio n Time Received Time / Laterality Volume Impressions 01/14/2022 2:48 PM CABLE MOCK UP ASSEMBLER IMPRESSION: There are no acute infiltrates. The cardiac silhouette is not enlarged. Pulmonary vasculature is u nremarkable. TEAGAN LAURENT MD Narrative 01/14/2022 2:48 PM CABLE MOCK UP ASSEMBLER CHEST TWO VIEWS 01/14/2022 2:27 PM HISTORY: Cough; [facility]-up examination [facility] [facility]; Reduced chest expansion on inspiration. COMPARISON: [...] u nremarkable. TEAGAN LAURENT MD Aydee Burton SLIP SHEETER TUBE MOLDER FIBERGLASS IMG DIAGNOSTIC IMAGING O RDERABLES documented in this encounter Visit Diagnoses Diagnosis Cough Follow-up examination following surgery Reduced chest expansion on inspiration Other symptoms involving respiratory sys tem and chest documented in this encounter Additional Health Concerns Assessment Noted Time PHQ-9 Depression Total Score: 22 06/28/2021 7:03 AM CD T documented as of this encounter Care Teams Bench Assembler Battery Relationship Specialty Start Date End Date Aydee Burton, PCP - General Nurse Practitioner - 05/17/21 SLIP SHEETER TUBE MOLDER FIBERGLASS Family [address] [place] [phone] Aydee Burton, Assigned PCP 04/28/21 SLIP SHEETER TUBE MOLDER FIBERGLASS [address] [place] [phone] Louisa Hood, Assigned Neuroscience 07/11/21 SLIP SHEETER TUBE MOLDER FIBERGLASS Provider [address] [place], [place] [phone] Se Levy, Lead Water Systems Designer 08/05/21 05/12/22 Clari Francois Pharmacist Pharmacist 08/06/21 06/07/22 Jocelyn [facility] [address] [place], [place] [phone] [place], Assigned Sleep 08/01/21 Angel Turcios, Provider [address] [place] [address] Lesly Celaya MD Assigned Surgical 09/05/[address] Provider [place], [place] [phone] Tawana Patel MA [facility] Health 09/30/21 Worker Ramses Mcpherson Assigned OBGYN 11/07/21 MD Teagan Provider [facility] [place] [address] Mago Swift, [facility] Lead Water Systems Designer Applied Statistician - 08/05/21 Clinical documented as of this encounter
--- OUTSIDE RECORDS SUMMARY | 2022-10-21 09:00 | XMS_ITS | Encounter Summary ---
:1980 Author Organization [facility] Address [address] [place] [address] Care Team Providers Name Role Phone Aydee Burton CLOUD SYSTEMS ADMINISTRATOR BOARD LINER OPERATOR Primary Care Provider Aydee Burton CLOUD SYSTEMS ADMINISTRATOR BOARD LINER OPERATOR Unavailable [phone] Louisa Hood CLOUD SYSTEMS ADMINISTRATOR BOARD LINER OPERATOR Unavailable [phone] Se Levy DRUG DEPARTMENT WORKER Unavailable Unavailable Clari Ruiz [facility] Unavailable [phone] Angel Hannah MD Unavailable Lesly Celaya MD Unavailable Tawana Patel MA Unavailable Unavailable Ramses Mcpherson MD Unavailable [phone] Mago Swift COILED TUBING OPERATOR Unavailable Encounter Details Date Type Department [...] at Date Recorded Female 11/09/2021 7:53 PM CLIENT MANAGER COVID-19 Exposure Response Date Recorded In the last month, have you been in contact with No / Unsure 01/14/2022 12:47 PM CLIENT MANAGER someone who was confirmed or suspected to have Coronavirus / COVID-19? documented as of this encounter Plan of Treatment Upcoming Encounters Date Type Specialty Care Team Description 10/21/2022 Office Visit Pulmonology Obdulio Barrera MD [address] [place] [phone] (Wo rk) 10/25/2022 PRE VISIT Charo Carter MD Previsit [address] [place] [address] (Wo rk) 10/25/2022 Office Visit Charo Carter MD [address] [place] [address] (Wo rk) 10/25/2022 Office Visit ENT Provider, Jeannette Ent Dysphonia Plastic Eye Technician 10/25/2022 Virtual Visit Pain & [place] [address] [place], [place] [address] 10/28/2022 Appointment Speech Therapy Anabel Chew, GLASS ARTIST [address] [phone] (Wo rk) 11/17/2022 Appointment Speech Therapy Anabel Chew, GLASS ARTIST [address] [phone] (Wo rk) 12/01/2022 Office Visit Pain & [place] [address] [place], [place] [address] (Wo rk) 12/23/2022 Office Visit Neurology Colby Yeung MD [address] [place] [phone] (Wo rk) documented as of this encounter Visit Diagnoses Not on filedocumented in this encounter Additional Health Concerns Infection Onset Date Last Indicated Resolved Time Rule Out COVID-19 01/14/2022 01/14/2022 01/14/2022 6:2 9 PM CLIENT MANAGER Assessment Noted Time PHQ-9 Depression Total Score: 22 06/28/2021 7:03 AM CD T documented as of this encounter Care Teams Commodity Analyst Relationship Specialty Start Date End Date Aydee Burton, PCP - General Nurse Practitioner - 05/17/21 CLOUD SYSTEMS ADMINISTRATOR BOARD LINER OPERATOR [facility] [address] [place] [phone] Aydee Burton, Assigned PCP 04/28/21 CLOUD SYSTEMS ADMINISTRATOR [address] [phone] Louisa Hood, Assigned Neuroscience 07/11/21 CLOUD SYSTEMS ADMINISTRATOR BOARD LINER OPERATOR Provider [address] [place], [place] [phone] Se Levy, Lead Admin Asst 08/05/21 05/12/22 DRUG DEPARTMENT WORKER Clari Ruiz Pharmacist Pharmacist 08/06/21 06/07/22 [facility] [address] [place] [address] [place], Assigned Sleep 08/01/21 Angel Turcios, Provider [address] [place] [address] Lesly Celaya MD Assigned Surgical 09/05/21 [address] Provider [place], [place] [phone] Tawana Patel MA [facility] Health 09/30/21 Worker Ramses Mcpherson Assigned OBGYN 11/07/21 MD Onesimo Provider [address] [place], [place] [phone] Mago Swift, [facility] Lead Admin Asst Armature Coil Winder - 08/05/21 Clinical documented as of this encounter
--- OUTSIDE RECORDS SUMMARY | 2022-10-21 09:00 | XMS_ITS | Encounter Summary ---
:1980 Author Organization [facility] Address [address] [place] [address] Care Team Providers Name Role Phone Aydee Burton LEAD TANK MECHANIC EDUCATION RN Primary Care Provider [phone] Aydee Burton LEAD TANK MECHANIC EDUCATION RN Unavailable [phone] Louisa Hood LEAD TANK MECHANIC EDUCATION RN Unavailable [phone] Se Levy LIGHT INDUSTRIAL Unavailable Unavailable Clari Ruiz [facility] Unavailable [phone] Angel Hannah MD Unavailable Lesly Celaya MD Unavailable Tawana Patel MA Unavailable Unavailable Ramses Mcpherson MD Unavailable [phone] Mago Swift INFORMATION ANALYST Unavailable Reason for Visit Reason Onset Date Comments Forms 01/05/2022 Encounter Details Date Type Department Care Team Description 01/05/2022 Telephone [facility] Lor Mcpherson Forms Clinic [facility] [address] [place] [address] [place], [place] [phone] Social History Tobacco Use Types Packs/Day Years [...] How often do you attend quaker or zoroastrianism services? Never 08/05/2021 Do you [...] at Date Recorded Female 11/09/2021 7:53 PM RESEARCH INVESTIGATOR COVID-19 Exposure Response Date Recorded In the last month, have you been in contact with No / Unsure 01/07/2022 2:29 PM RESEARCH INVESTIGATOR someone who was confirmed or suspected to have Coronavirus / COVID-19? documented as of this encounter Miscellaneous Notes Telephone Encounter - Karin Carlene F, PUBLIC SCHOOL TEACHER - 01/07/2022 5:12 PM CST Forms completed and faxed. Copy sent to scan and original in the Sri fax bin Carlene Frazier CMA ARCH INVESTIGATOR Telephone Encounter - Carlene Frazier CMA - 01/07/2022 11:30 AM CST Form started and placed on Dr. Mcpherson's [place] desk for completion and signature Carlene Frazier CMA ARCH INVESTIGATOR Telephone Encounter - Fatou Daniel - 01/05/2022 2:24 PM CST Form received from: [employer] Form requesting following info/need: FMLA [place] needed?: No Location of form: Fatou's desk When completed the route for return: ARCH INVESTIGATOR documented in this encounter Plan of Treatment Upcoming Encounters Date Type Specialty Care Team Description 10/21/2022 Office Visit Pulmonology Obdulio Barrera MD [address] [facility] [address] [place] [address] (Wo rk) 10/25/2022 PRE VISIT ENT Charo Burton MD Previsit [address] [place] [place], [place] [id number] (Wo rk) 10/25/2022 Office Visit Charo Carter MD [address] [place], [place] [phone] (Wo rk) 10/25/2022 Office Visit ENT Provider, Jeannette Ent Dysphonia Neon Glass Blower 10/25/2022 Virtual Visit Pain & Palliative [place] [address] [place], [place] [address] 10/28/2022 Appointment Speech Therapy Anabel Chew, RESIDENTIAL SOLAR CONSULTANT [address] [place], [place] [phone] (Wo rk) 11/17/2022 Appointment Speech Therapy Anabel Chew, RESIDENTIAL SOLAR CONSULTANT [facility] [address] [facility] [address] [place], [place] [address] (Wo rk) 12/01/2022 Office Visit Pain & [place] [address] [place], [place] [address] (Wo rk) 12/23/2022 Office Visit Neurology Colby Yeung MD [address] [place] [address] (Wo rk) documented as of this encounter Visit Diagnoses Not on filedocumented in this encounter Additional Health Concerns Assessment Noted Time PHQ-9 Depression Total Score: 22 06/28/2021 7:03 AM CD T documented as of this encounter Care Teams Tripe Finisher Relationship Specialty Start Date End Date Aydee Burton, PCP - General Nurse Practitioner - 05/17/21 LEAD TANK MECHANIC EDUCATION RN Family [address] [place] [address] [id number] Aydee Burton, Assigned PCP 04/28/21 LEAD TANK MECHANIC EDUCATION RN [address] [place], [place] [phone] Louisa Hood, Assigned Neuroscience 07/11/21 LEAD TANK MECHANIC EDUCATION RN Provider [address] [place], [place] [address] Se Levy, Lead Straddle Bug 08/05/21 05/12/22 Clari Francois Pharmacist Pharmacist 08/06/21 06/07/22 Jocelyn [facility] [address] [place], [place] [phone] [place], Assigned Sleep 08/01/21 Angel Turcios, Provider [address] [place], [place] [address] Lesly Celaya MD Assigned Surgical 09/05/21 [address] Provider [place], [place] [phone] Tawana Patel MA [facility] 09/30/21 Worker Ramses Mcpherson Assigned OBGYN 11/07/21 MD Onesimo Provider [address] [place] [address] [facility] Lead Straddle Bug Nailing Machine Operator Automatic - 08/05/21 Clinical documented as of this encounter
--- OUTSIDE RECORDS SUMMARY | 2022-10-21 09:01 | XMS_ITS | Encounter Summary ---
:1980 Author Organization [facility] Address [address] [place] [address] Care Team Providers Name Role Phone Aydee Burton PLAYER MANAGER INJECTOR ASSEMBLER Primary Care Provider [phone] Aydee Burton PLAYER MANAGER INJECTOR ASSEMBLER Unavailable [phone] Louisa Hood PLAYER MANAGER INJECTOR ASSEMBLER Unavailable [phone] Se Levy LOOM CHECKER Unavailable Unavailable Clari Ruiz [facility] Unavailable [phone] Angel Hannah MD Unavailable Lesly Celaya MD Unavailable Tawana Patel MA Unavailable Unavailable Ramses Mcpherson MD Unavailable [phone] Mago Swift PARKING LOT SPOTTER Unavailable Reason for Visit Reason Comments Pain Encounter Details Date Type Department Care Team Description 12/14/2021 Office Visit [facility] Lucas Anaya yannick myofascial pain (Primary Dx); Pain Management MD Romel Trigger point of shoulder region, unspec ified laterality [place] [address] [address] [address] [id number] [place] [address] [phone] Social History Tobacco Use Types Packs/Day Years [...] How often do you attend jew or yazidism services? Never 08/05/2021 Do you [...] at Date Recorded Female 11/09/2021 7:53 PM BUSINESS PROCESS REPRESENTATIVE COVID-19 Exposure Response Date Recorded In the last month, have you been in contact with No / Unsure 12/14/2021 2:40 PM BUSINESS PROCESS REPRESENTATIVE someone who was confirmed or suspected to have Coronavirus / COVID-19? documented as of this encounter Last Filed Vital Signs Vital Sign Reading Time Taken Comments Blood Pressure 124/72 12/14/2021 2:45 PM BUSINESS PROCESS REPRESENTATIVE Pulse 97 12/14/2021 2:45 PM BUSINESS PROCESS REPRESENTATIVE Temperature - - Respiratory Rate - - Oxygen Saturation 99% 12/14/2021 2:45 PM BUSINESS PROCESS REPRESENTATIVE Inhaled Oxygen Concentration - - Weight - - Height - - Body Mass Index - - documented in this encounter Patient Instructions Patient InstructionsPacharo, Tatiana CaroGREGORIO - 12/14/2021 2:30 PM CST 1. Reduce [...] completed we can place a referral to [facility] for word hardening physical therapy. Take care, Lucas Anaya, [facility] Number: [phone] ??? Call with any questions about your care and for scheduling assistance. ??? Calls are returned Monday through Monday between 8 AM and 4:30 PM. We usually get back to you within 2 business days depending on the issue/request. If we are prescribing your medications: ?? For opioid medication refills, call the clinic or send a [employer] Mobile message 7 days in advance. Please include: ?? Name of requested medication ?? Name of the pharmacy. ?? For non-opioid medications, call your pharmacy directly to request a refill. Please allow 3-4 days to be processed. ?? Per [place] State Law: ?? All controlled substance prescriptions [...] may lead to dismissal from the clinic. NESS PROCESS REPRESENTATIVE documented in this encounter Progress Notes Lucas Anaya MD - 12/14/2021 2:30 PM CST [facility] Date of visit: 12/14/2021 Assessment: Marta Hill is a 41 year old with past medical history including: PTSD, Anxiety, Depression, who presents for evaluation and treatment of the following chronic pain conditions: ?? 1. Chronic headaches: Marta has had a long standing history of chronic neck pain and headaches and has been diagnosed with occipital neuralgia at [facility] years ago. Currently they are experiencing daily [...] Psychologist: Pain phd referral placed, scheduled for [facility]. 1. Therapy can help reduce physical and [...] every 3+ months. 7. Release of information: [facility] 8. Follow up: 2 months. Lucas Anaya [facility] Chief complaint: Chief Complaint Patient [...] years ago - made headaches worse - [facility] 6. Alternative Therapies: Chiropractic: hasn't tried [...] professionals Time spent documenting clinical information in [facility] DO Yany Pulliam Pain Management 12/14/2021 NESS PROCESS REPRESENTATIVE documented in this encounter Plan of Treatment Upcoming Encounters Date Type Specialty Care Team Description 10/21/2022 Office Visit Pulmonology HollyObdulio moyer MD [address] [place] [phone] (Wo rk) 10/25/2022 PRE VISIT ENT Charo Burton MD Previsit [address] [place] [phone] (Wo rk) 10/25/2022 Office Visit Charo Carter MD [address] [place] [phone] (Wo rk) 10/25/2022 Office Visit ENT Provider, Ent Dysphonia Delicatessen Manager 10/25/2022 Virtual Visit Pain & [place]iative [place] [address] [place], [place] [address] 10/28/2022 Appointment Speech Therapy Anabel Chew SLP [address] [address] (Wo rk) 11/17/2022 Appointment Speech Therapy Anabel Chew SLP [address] [phone] (Wo rk) 12/01/2022 Office Visit Pain [place] [address] [place], [place] [address] (Wo rk) 12/23/2022 Office Visit Neurology Colby Yeung MD [address] [place], [place] [address] (Wo rk) documented as of this encounter Visit Diagnoses Diagnosis Chronic myofascial pain - Primary Mylagia and myositis, unspecified Trigger point of shoulder region, unspec ified laterality documented in this encounter Additional Health Concerns Assessment Noted Time PHQ-9 Depression Total Score: 06/28/2021 7:03 AM CD T documented as of this encounter Care Teams Flatwork Ironer Relationship Specialty Start Date End Date Aydee Burton, PCP - General Nurse Practitioner - 05/17/21 PLAYER MANAGER INJECTOR ASSEMBLER Family [address] [place] [address] Aydee Burton, Assigned PCP 04/28/21 PLAYER MANAGER INJECTOR ASSEMBLER [address] [place] [address] Louisa Hood, Assigned Neuroscience 07/11/21 PLAYER MANAGER INJECTOR ASSEMBLER Provider [address] [place] [address] Se Levy, Lead Chemical Analyst 08/05/21 05/12/22 Clari Francois Pharmacist Pharmacist 08/06/21 06/07/22 Jocelyn [facility] [address] [place] [address] [place], Assigned Sleep 08/01/21 Angel Turcios, Provider [address] [place], [place] [phone] Lesly Celaya MD Assigned Surgical 09/05/21 [address] [place] [place] [address] Tawana Patel MA [facility] 09/30/21 Worker Ramses Mcpherson Assigned OBGYN 11/07/21 MD Onesimo Provider [address] [place] [address] Mago Swift [facility] Lead Chemical Analyst Machine Stoppage Frequency Checker - 08/05/21 Clinical documented as of this encounter
--- OUTSIDE RECORDS SUMMARY | 2022-10-21 09:01 | XMS_ITS | Encounter Summary ---
:1980 Author Organization [facility] Address [address] [place] [address] Care Team Providers Name Role Phone Aydee Burton PORTABLE GRINDING MACHINE OPERATOR BOARD FILLER Primary Care Provider Aydee Burton PORTABLE GRINDING MACHINE OPERATOR BOARD FILLER Unavailable [phone] Louisa Hood PORTABLE GRINDING MACHINE OPERATOR BOARD FILLER Unavailable [phone] Se Levy CONCRETE MIXING PLANT SUPERINTENDENT Unavailable Unavailable Clari Ruiz [facility] Unavailable [phone] Angel Hannah MD Unavailable Lesly Celaya MD Unavailable Tawana Patel MA Unavailable Unavailable Yakov Muniz MD Unavailable [phone] Mago Swift HAND CLERICAL VERIFIER Unavailable Reason for Visit Auth/Cert Specialty Diagnoses / Procedures Referred By Contact Refer red To Contact Surgery Diagnoses Menorrhagia Dysmenorrhea Dyspareunia in female Menorrhagia [N92.0] Dysmenorrhea [N94.6] Dyspareunia in female [N94.10] Rh Periop Services Procedures ZZC LAPAROSCOPY W TOT HYSTERECT UTERUS 250 GRAM OR LESS ZZC LAPAROSCOPY TOTAL HYSTERECTOMY UTERUS > 250 GRAM TOTAL LAPAROSCOPIC HYSTERECTOMY [address] [place], [place] [address] Phone: Fax: Referral ID Status Reason Start Date Expiration Date Visits Requ ested Visits Authorized [id number] 1 1 Encounter Details Date Type Department Care Team Description 12/28/2021 [facility] Yakov Muniz S/P laparoscopic Encounter Pasquale Echols MD hysterectomy PreOP/PostOP [address] (Primary Dx) [address] [place], [place] [address] [address] [place], [place] [phone] (Wo rk) [address] [phone] Social History Tobacco Use Types Packs/Day Years [...] How often do you attend jain or cheondoism services? 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/2021 7:53 PM WELDING SYSTEMS AND EQUIPMENT REPAIRER COVID-19 Exposure Response Date Recorded In the last month, have you been in contact with No / Unsure 12/28/2021 5:49 AM WELDING SYSTEMS AND EQUIPMENT REPAIRER someone who was confirmed or suspected to have Coronavirus / COVID-19? documented as of this encounter Last Filed Vital Signs Vital Sign Reading Time Taken Comments Blood Pressure 122/82 12/28/2021 12:40 PM WELDING SYSTEMS AND EQUIPMENT REPAIRER Pulse 96 12/28/2021 12:40 PM WELDING SYSTEMS AND EQUIPMENT REPAIRER Temperature 36.3 ??C (97.4 ??F) 12/28/2021 12:40 PM WELDING SYSTEMS AND EQUIPMENT REPAIRER Respiratory Rate 15 12/28/2021 12:40 PM WELDING SYSTEMS AND EQUIPMENT REPAIRER Oxygen Saturation 92% 12/28/2021 12:40 PM WELDING SYSTEMS AND EQUIPMENT REPAIRER Inhaled Oxygen Concentration - - Weight 92.2 kg (203 lb 4.8 oz) 12/28/2021 6:22 AM WELDING SYSTEMS AND EQUIPMENT REPAIRER Height 170.2 cm (5' 7) 12/28/2021 6:22 AM WELDING SYSTEMS AND EQUIPMENT REPAIRER Body Mass Index 31.84 12/28/2021 6:22 AM WELDING SYSTEMS AND EQUIPMENT REPAIRER documented in this encounter Discharge Instructions Discharge InstructionsAngela Ramos RN - 12/28/2021 11:36 AM WELDING SYSTEMS AND EQUIPMENT REPAIRER GENERAL ANESTHESIA OR SEDATION ADULT DISCHARGE INSTRUCTIONS [...] DR. YAKOV MUNIZ M.D. CLINIC PHONE NUMBER: [phone]. WILBURN LITURGICAL MUSIC DIRECTOR ING SYSTEMS AND EQUIPMENT REPAIRER documented in this encounter Medications at Time [...] mg by mouth 0 MG capsule daily vitamin D3 Take 1 tablet by 0 (CHOLECALCIFEROL) 50 mcg mouth daily (2000 units) tablet kmbiyhme-etlvbdgvh-ufjxim Place 3 drops into 10 mL 0 12/31/2021 ortisone (CORTISPORIN) the right ear 4 3.5-85449-7 otic times daily for 7 solutionIndications: days [...] the patient. There are no significant changes ING SYSTEMS AND EQUIPMENT REPAIRER Source Note - Nasim Milton MD - 12/24/2021 2:00 PM WELDING SYSTEMS AND EQUIPMENT REPAIRER SUBJECTIVE: Marta Hawkins is a 41 year [...] otitis externa, right (primary encounter diagnosis) Plan: chnvkfqn-scysnvckm-sjfbkryqbwcgss (CORTISPORIN) 3.5-34111-7 otic solution Refrain from using Q-tips in ear canal. Okay for tylenol for discomfort. RX cortisporin otic drops for right otitis externa. Reassurance given that otitis externa infection should not delay upcoming surgery. Follow up with primary provider if no improvement of symptoms in 1 week Nasim Milton MD December 24, 2021 2:28 PM ING SYSTEMS AND EQUIPMENT REPAIRER documented in this encounter Miscellaneous Notes Op Note - Yakov Muniz MD - 12/28/2021 9:54 AM CST Procedure Date: 12/28/2021 PREOPERATIVE DIAGNOSES: 1. Menometrorrhagia. 2. Dysmenorrhea. 3. Dyspareunia. POSTOPERATIVE DIAGNOSES: 1. Menometrorrhagia. 2. Dysmenorrhea. 3. Dyspareunia. PROCEDURE: Total laparoscopic hysterectomy with bilateral salpingectomy. SURGEON: Yakov Green M.D. INSPECTOR CANNED FOOD RECONDITIONING: Rico Osborne M.D. ANESTHESIA: General. INDICATIONS FOR [...] Muniz MD MT: ILANA Name: MARTA HAWKINS Account: [id number] : 1980 Procedure Date: 12/28/2021 Document: [id number] ING SYSTEMS AND EQUIPMENT REPAIRER Brief Op Note - Yakov Muniz MD - 12/28/2021 5:50 AM CST [facility] Brief Operative Note Pre-operative diagnosis: Menorrhagia [...] Filshie clip not seen. Normal upper abdomen ING SYSTEMS AND EQUIPMENT REPAIRER documented in this encounter Plan of Treatment Upcoming Encounters Date Type Specialty Care Team Description 10/21/2022 Office Visit Pulmonology Obdulio Barrera MD [address] [place] [address] [phone] (Wo rk) 10/25/2022 PRE VISIT ENT Charo Burton MD Previsit [address] [place] [address] [phone] (Wo rk) 10/25/2022 Office Visit ENT Charo Burton MD [address] [place] [address] [phone] (Wo rk) 10/25/2022 Office Visit ENT Provider, Ent Dysphonia Idea Worker 10/25/2022 Virtual Visit Pain & [place] [address] [place], [place] [address] 10/28/2022 Appointment Speech Therapy Anabel Chew, WOOL CLEANER [address] [phone] (Wo rk) 11/17/2022 Appointment Speech Therapy Anabel Chew, WOOL CLEANER [address] [address] (Wo rk) 12/01/2022 Office Visit Pain & [place] [address] [place], [place] [address] (Wo rk) 12/23/2022 Office Visit Neurology Colby Yeung MD [address] [place] [phone] (Wo rk) documented as of this encounter Procedures Procedure Name Priority Date/Time Associated Comments Diagnosis SURGICAL PATHOLOGY Routine 12/28/2021 9:11 AM Res ults for this EXAM WELDING SYSTEMS AND EQUIPMENT REPAIRER procedure are i n the results section. HYSTERECTOMY, TOTAL, 12/28/2021 7:33 AM Menorrha quinten LAPAROSCOPIC WELDING SYSTEMS AND EQUIPMENT REPAIRER Dysmenorrhea Dyspareunia in female HEMOGLOBIN STAT 12/28/2021 6:53 AM Results f or this WELDING SYSTEMS AND EQUIPMENT REPAIRER procedure are i n the results section. TYPE AND SCREEN, STAT 12/28/2021 6:35 AM Resul ts for this ADULT WELDING SYSTEMS AND EQUIPMENT REPAIRER procedure are i n the results section. ABO/RH TYPE AND STAT 12/28/2021 6:35 AM Result s for this SCREEN WELDING SYSTEMS AND EQUIPMENT REPAIRER procedure are i n the results section. documented in this encounter Results Surgical Pathology Exam (12/28/2021 9:11 AM WELDING SYSTEMS AND EQUIPMENT REPAIRER) Component Value Ref Test Analysis Performed At [facility] Range Method Time Signature Case Report Surgical Pathology Report ? Case: [id number] ? 12/30/2021 RH Authorizing Provider: ??Yakov Watson, ?? Collected: ? 12/28/2021 09:11 AM ? 6:34 PM LABORATOR Y ? MD ? WELDING SYSTEMS AND EQUIPMENT REPAIRER Ordering Location: ? [facility] ?? Received: ?12/28/2021 09:36 AM ? Main OR ? Pathologist: ? Daria Banuelos MD ? Specimen: ?Uterus, Cervi x, Bilateral Fallopian Tubes, UTERUS, CERVIX, AND BILATERAL FALLOPIAN ? TUBES ? Final Uterus, right fallopian tube , left fallopian tube, total hysterectomy with bilateral salpingectomy: 12/30/2021 RH El ectronically Diagnosis -Secretory pattern endometrium without hyperplasia. 6:34 PM LABORATORY signed by -Adenomyosis. WELDING SYSTEMS AND EQUIPMENT REPAIRER Daria Banuelos, -Multiple intramural uterine leiomyomas (largest 1.2 cm). on 12/30/2021 -Negative for cervical squamous intraepi thelial lesion or glandular dysplasia. at 6:34 PM -Unremarkable bilateral fallopian tubes (status post tubal l igation). -Benign paratubal cysts, bilateral. -Negative for malignancy. Clinical Status post tubal 12/30/2021 RH Information ligation and 6:34 PM LABORATORY status post WELDING SYSTEMS AND EQUIPMENT REPAIRER endometrial ablation in 2018. Persistent menometrorrhagia, dysmenorrhea [...] ligated left fallopian tube with fimbria (5.1 WELDING SYSTEMS AND EQUIPMENT REPAIRER x 0.6 x 0.6 cm). The endome [...] 0.8 cm. No ovarian tissue identified grossly. Production Hardener sections are submitted. Cassette 1: Anterior cervix Cassette 2: Posterior cervix Cassette 3-4 uterine wall with endometrium Cassette 5: Leiomyomas Cassette 6: Area of myometrial induration Cassette 7: Right fallopian tube Cassette 8: Left fallopian tube (FLORES [facility]P) Microscopic Microscopic examination is performed. 12/30/2021 Description 6:34 PM LABORATORY WELDING SYSTEMS AND EQUIPMENT REPAIRER Performing The technical 12/30/2021 Labs component of this 6:34 PM LABORATORY testing was WELDING SYSTEMS AND EQUIPMENT REPAIRER completed at [facility] Laboratory Case Images 12/30/2021 6:34 PM LABORATORY WELDING SYSTEMS AND EQUIPMENT REPAIRER Specimen Anatomical Collection Method Collection Time Receive d Time (Source) Location / / Volume Laterality Tissue UTERUS AND 12/28/2021 9:11 AM 9:36 FALLOPIAN TUBES, WELDING SYSTEMS AND EQUIPMENT REPAIRER AM WELDING SYSTEMS AND EQUIPMENT REPAIRER CS / Unknown Yakov Muniz MD LAB - [facility] JORDAN Performing Organization Address City/State/ZIP Code Phon [place] [address] Care [address] Lab (1st floor, no room number) Hemoglobin (12/28/2021 6:53 AM WELDING SYSTEMS AND EQUIPMENT REPAIRER) athologist Signature Hemoglobin 12.2 11.7 - 15.7 12/28/2021 RH LABORATORY g/dL 7:24 AM WELDING SYSTEMS AND EQUIPMENT REPAIRER Specimen Anatomical Collection Method / Collection Time Recei edil Time (Source) Location / Volume Laterality Blood STRUCTURE OF RIGHT Venipuncture / 12/28/2021 6:53 12/14 7:16 UPPER LIMB / Unknown AM WELDING SYSTEMS AND EQUIPMENT REPAIRER AM WELDING SYSTEMS AND EQUIPMENT REPAIRER Unknown Yakov Muniz MD LAB - BLOOD ORDERABLES Performing Organization Address City/State/ZIP Code [place] [phone] Care Lab [address] [facility] Lab (1st floor, no room number) Adult Type and Screen (12/28/2021 6:35 AM WELDING SYSTEMS AND EQUIPMENT REPAIRER) [facility] Method Time Signature ABO/RH(D) O POS 12/28/2021 RH BLOOD 6:15 AM WELDING SYSTEMS AND EQUIPMENT REPAIRER BANK Antibody Negative Negative 12/28/2021 RH BLOOD Screen 6:15 AM WELDING SYSTEMS AND EQUIPMENT REPAIRER BANK SPECIMEN [id number] 12/28/2021 RH BLOOD EXPIRATION 6:15 AM WELDING SYSTEMS AND EQUIPMENT REPAIRER BANK DATE Specimen Anatomical Collection Method / Collection Time Recei edil Time (Source) Location / Volume Laterality Blood BLOOD SPECIMEN / Venipuncture / 12/28/2021 6:35 2021 7:15 Unknown Unknown AM WELDING SYSTEMS AND EQUIPMENT REPAIRER AM WELDING SYSTEMS AND EQUIPMENT REPAIRER Yakov Muniz MD LAB - BLOOD BANK TEST ORDER Performing Organization Address City/State/ZIP Code Phon e Number BLOOD BANK [address] [place] [address] documented in this encounter Visit Diagnoses Diagnosis S/P laparoscopic hysterectomy - Primary 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 Hold if patient has taken acetaminophen within 4 hours. Maximum acetaminophen dose from all sources = 75 mg/kg/day not to exceed 4 grams/day., Pre-procedure fentaNYL (PF) (SUBLIMAZE) injection 25 m cg Given 12/28/2021 10:08 AM WELDING SYSTEMS AND EQUIPMENT REPAIRER 25 mcg 25 mcg, Intravenous, EVERY 5 [...] HYDROmorphone (DILAUDID)., PACU Given 12/28/2021 9:58 AM WELDING SYSTEMS AND EQUIPMENT REPAIRER 25 mcg fentaNYL (PF) (SUBLIMAZE) injection 25 m cg Given 12/28/2021 11:50 AM WELDING SYSTEMS AND EQUIPMENT REPAIRER 25 mcg 25 mcg, Intravenous, EVERY 15 [...] injection 4 mg Given 12/28/2021 10:40 AM WELDING SYSTEMS AND EQUIPMENT REPAIRER 4 mg 4 mg, Intravenous, EVERY 30 [...] tablet 5 mg Given 12/28/2021 10:22 AM WELDING SYSTEMS AND EQUIPMENT REPAIRER 5 mg 5 mg, Oral, EVERY 4 [...] Left Ear 72 hr patch 1 patch WELDING SYSTEMS AND EQUIPMENT REPAIRER 1 patch, Transdermal, EVERY 72 HOURS, Administer [...] Recently Administered Medications Times are shown in WELDING SYSTEMS AND EQUIPMENT REPAIRER. Scheduled Medication Order 12/26/2021 12/27/2021 12/28/2021 acetaminophen [...] Landry APRN CRNA) Routine, 2 g, Intravenous, PRE-OP/PRE-NV OCEDURE, Starting on Mon12/28/21 at 0606, For [...] 1 patch, Transdermal, EVERY 72 HOURS, Ad accounting coordinator over 72 Hours, First dose on Mon12/28/21 [...] side ef fects. Hold while on IV FACILITIES AND GROUNDS DIRECTOR or with regular IV opioid dosing. prochlorperazine [...] vomiting, Administer over 1-2 Minutes, Starting on 12/28/21 at 0935
This is Step 2 of the nausea and vomiting protocol. If nausea not resolved in 15 minutes, notify Provider.
PACU/Phase II Or prochlorperazine (COMPAZINE) injection 10 mgJump to med 10 mg, Intravenous, EVERY 6 HOURS PRN, n ausea, vomiting, Administer over 1-2 Minutes, Starting on 12/28/21 at 0935
This is Step 2 of the nausea and vomiting protocol. If nausea not resolved in 15 minutes, notify Provider.
PACU/Phase II documented in this encounter Additional Health Concerns Assessment Noted Time PHQ-9 Depression Total Score: 06/28/2021 7:03 AM CD T documented as of this encounter Care Teams Senior Materials Planner Relationship Specialty Start Date End Date Aydee Burton, PCP - General Nurse Practitioner - 05/17/21 PORTABLE GRINDING MACHINE OPERATOR BOARD FILLER Family [address] [place] [address] [phone] Aydee Burton, Assigned PCP 04/28/21 PORTABLE GRINDING MACHINE OPERATOR BOARD FILLER [address] [place] [address] [phone] Louisa Hood, Assigned Neuroscience 07/11/21 PORTABLE GRINDING MACHINE OPERATOR BOARD FILLER Provider [address] [place] [address] [phone] Se Levy, Lead Ems Manager 08/05/21 05/12/22 Clari Francois Pharmacist Pharmacist 08/06/21 06/07/22 Jocelyn [place] [phone] [address] [phone] [place], Assigned Sleep 08/01/21 Angel Turcios, Provider [address] [place], [place] [phone] Lesly Celaya MD Assigned Surgical 09/05/21 [address] [place] [place] [address] Tawana Patel MA [facility] 09/30/21 Worker Yakov Muniz Assigned OBGYN 11/07/21 MD Onesimo Provider [address] [place] [address] Mago Swift, [facility] Lead Ems Manager Epic Willow Analyst - 08/05/21 Clinical documented as of this encounter
--- OUTSIDE RECORDS SUMMARY | 2022-10-21 09:01 | XMS_ITS | Encounter Summary ---
:1980 Author Organization [facility] Address [address] [place] [address] Care Team Providers Name Role Phone Aydee Burton WAFER BATTER MIXER EXCHANGE ARCHITECT Primary Care Provider [phone] Aydee Burton WAFER BATTER MIXER EXCHANGE ARCHITECT Unavailable [phone] Louisa Hood WAFER BATTER MIXER EXCHANGE ARCHITECT Unavailable [phone] Se Levy DOPEMAN Unavailable Unavailable Clari Ruiz [facility] Unavailable [phone] Angel Hannah MD Unavailable Lesly Celaya MD Unavailable Tawana Patel MA Unavailable Unavailable Ramses Mcpherson MD Unavailable [phone] Mago Swift HOUSE SITTER Unavailable Encounter Details Date Type Department Care [...] How often do you attend sikhism or orthodoxy services? Never 08/05/2021 Do you [...] at Date Recorded Female 11/09/2021 7:53 PM ZOOLOGY TEACHER COVID-19 Exposure Response Date Recorded In the last month, have you been in contact with No / Unsure 12/14/2021 2:40 PM ZOOLOGY TEACHER someone who was confirmed or suspected to have Coronavirus / COVID-19? documented as of this encounter Plan of Treatment Upcoming Encounters Date Type Specialty Care Team Description 10/21/2022 Office Visit Pulmonology Obdulio Barrera MD [address] [place] [phone] (Wo rk) 10/25/2022 PRE VISIT Charo Carter MD Previsit [address] [place] [address] (Wo rk) 10/25/2022 Office Visit Charo Carter MD [address] [place] [address] (Wo rk) 10/25/2022 Office Visit ENT Provider, Jenanette Ent Dysphonia Equipment Cleaner And Tester 10/25/2022 Virtual Visit Pain & Palliative [place] [address] [place], [place] [address] 10/28/2022 Appointment Speech Therapy Anabel Chew, SOLAR SALES ENERGY ADVISOR [address] [phone] (Wo rk) 11/17/2022 Appointment Speech Therapy Anabel Chew, SOLAR SALES ENERGY ADVISOR [address] [phone] (Wo rk) 12/01/2022 Office Visit Pain & [place] [address] [place], [place] [address] (Wo rk) 12/23/2022 Office Visit Neurology Colby Yeung MD [address] [place] 124[address] (Wo rk) documented as of this encounter Visit Diagnoses Not on filedocumented in this encounter Additional Health Concerns Assessment Noted Time PHQ-9 Depression Total Score: 22 06/28/2021 7:03 AM CD T documented as of this encounter Care Teams Employment Service Specialist Relationship Specialty Start Date End Date Aydee Burton, PCP - General Nurse Practitioner - 05/17/21 WAFER BATTER MIXER EXCHANGE ARCHITECT Family [address] [place], [place] [phone] Aydee Burton, Assigned PCP 04/28/21 WAFER BATTER MIXER EXCHANGE ARCHITECT [address] [place], [place] [phone] Louisa Hood, Assigned Neuroscience 07/11/21 WAFER BATTER MIXER EXCHANGE ARCHITECT Provider [address] [place] [address] [place] [phone] Se Levy, Lead Technician 08/05/21 05/12/22 Clari Francois Pharmacist Pharmacist 08/06/21 06/07/22 Jocelyn, [facility] [address] [place] [address] [place], Assigned Sleep 08/01/21 Angel Turcios, Provider [address] [place], [place] [phone] Lesly Celaya MD Assigned Surgical 09/05/21 [address] Provider [place], [place] [phone] Tawana Patel MA [facility] 09/30/21 Worker Ramses Mcpherson Assigned OBGYN 11/07/21 MD Onesimo Provider [address] [place], [place] [phone] Mago Swift [facility] Lead Technician Relations Coordinator - 08/05/21 Clinical documented as of this encounter
--- OUTSIDE RECORDS SUMMARY | 2022-10-21 09:01 | XMS_ITS | Encounter Summary ---
:1980 Author Organization [place] Address [address] [place] [address] Care Team Providers Name Role Phone Aydee Burton BANJO REPAIRER CYCLE ANALYST Primary Care Provider Aydee Burton BANJO REPAIRER CYCLE ANALYST Unavailable [phone] Louisa Hood BANJO REPAIRER CYCLE ANALYST Unavailable [phone] Se Levy CLAMP CARRIER OPERATOR Unavailable Unavailable Clari Ruiz [facility] Unavailable [phone] Angel Hannah MD Unavailable Lesly Celaya MD Unavailable Tawana Patel MA Unavailable Unavailable Yakov Muniz MD Unavailable [phone] Mago Swift HEALTH SCIENCES PROGRAM COORDINATOR Unavailable Reason for Visit Auth/Cert Specialty Diagnoses / Procedures Referred By Contact Refer red To Contact Surgery Diagnoses Menorrhagia Dysmenorrhea Dyspareunia in female Menorrhagia [N92.0] Dysmenorrhea [N94.6] Dyspareunia in female [N94.10] Rh Periop Services Procedures ZZC LAPAROSCOPY W TOT HYSTERECT UTERUS 250 GRAM OR LESS ZZC LAPAROSCOPY TOTAL HYSTERECTOMY UTERUS > 250 GRAM TOTAL LAPAROSCOPIC HYSTERECTOMY [address] [place], [place] [address] Phone: Fax: Referral ID Status Reason Start Date Expiration Date Visits Requ ested Visits Authorized [id number] 1 1 Encounter Details Date Type Department Care Team Description 12/28/2021 Surgery [facility] Yakov Muniz L LAPAROSCOPIC [place] PeriOp MD Onesimo HYSTERECTOMY WITH Services [address] BILATERAL SALPINGECTOMY [address] [place] [address] [place], [place] [phone] (Wo rk) [address] [phone] Surgery Details Date/Time Status Location OR Service [...] How often do you attend yarsani or temple services? Never 08/05/2021 Do you [...] at Date Recorded Female 11/09/2021 7:53 PM TRAVEL ACCOMMODATION INSPECTOR COVID-19 Exposure Response Date Recorded In the last month, have you been in contact with No / Unsure 12/28/2021 5:49 AM TRAVEL ACCOMMODATION INSPECTOR someone who was confirmed or suspected to have Coronavirus / COVID-19? documented as of this encounter Last Filed Vital Signs Vital Sign Reading Time Taken Comments Blood Pressure 121/70 12/28/2021 9:30 AM TRAVEL ACCOMMODATION INSPECTOR Pulse 90 12/28/2021 6:22 AM TRAVEL ACCOMMODATION INSPECTOR Temperature 36.2 ??C (97.1 ??F) 12/28/2021 9:30 AM TRAVEL ACCOMMODATION INSPECTOR Respiratory Rate 13 12/28/2021 9:30 AM TRAVEL ACCOMMODATION INSPECTOR Oxygen Saturation 100% 12/28/2021 9:30 AM TRAVEL ACCOMMODATION INSPECTOR Inhaled Oxygen Concentration - - Weight 92.2 kg (203 lb 4.8 oz) 12/28/2021 6:22 AM TRAVEL ACCOMMODATION INSPECTOR Height 170.2 cm (5' 7) 12/28/2021 6:22 AM TRAVEL ACCOMMODATION INSPECTOR Body Mass Index 31.84 12/28/2021 6:22 AM TRAVEL ACCOMMODATION INSPECTOR documented in this encounter Discharge Instructions Discharge InstructionsAngela Ramos RN - 12/28/2021 11:36 AM TRAVEL ACCOMMODATION INSPECTOR GENERAL ANESTHESIA OR SEDATION ADULT DISCHARGE INSTRUCTIONS [...] DR. YAKOV MUNIZ M.D. CLINIC PHONE NUMBER: [phone]. [employer]AD[employer] EL ACCOMMODATION INSPECTOR documented in this encounter Medications at Time [...] 50 mcg mouth daily (2000 units) tablet njaqlzry-agqkxjugd-dxazxy Place 3 drops into 10 mL 0 12/31/2021 ortisone (CORTISPORIN) the right ear 4 3.5-33824-8 otic times daily for 7 solutionIndications: days [...] the patient. There are no significant changes EL ACCOMMODATION INSPECTOR Source Note - Nasim Milton MD - 12/24/2021 2:00 PM TRAVEL ACCOMMODATION INSPECTOR SUBJECTIVE: Marta Hawkins is a 41 year [...] otitis externa, right (primary encounter diagnosis) Plan: dcrwctdz-khsqdjjqm-cfoonjdamjwcmu (CORTISPORIN) 3.5-59783-7 otic solution Refrain from using Q-tips in ear canal. Okay for tylenol for discomfort. RX cortisporin otic drops for right otitis externa. Reassurance given that otitis externa infection should not delay upcoming surgery. Follow up with primary provider if no improvement of symptoms in 1 week Nasim Milton MD December 24, 2021 2:28 PM EL ACCOMMODATION INSPECTOR documented in this encounter Miscellaneous Notes Op Note - Yakov Muniz MD - 12/28/2021 9:54 AM CST Procedure Date: 12/28/2021 PREOPERATIVE DIAGNOSES: 1. Menometrorrhagia. 2. Dysmenorrhea. 3. Dyspareunia. POSTOPERATIVE DIAGNOSES: 1. Menometrorrhagia. 2. Dysmenorrhea. 3. Dyspareunia. PROCEDURE: Total laparoscopic hysterectomy with bilateral salpingectomy. SURGEON: Yakov Green M.D. DIRECTOR OF INFORMATICS: Rico Osborne M.D. ANESTHESIA: General. INDICATIONS FOR [...] MD MT: ILANA Name: MARTA HAWKINS Account: [id number] : 1980 Procedure Date: 12/28/2021 Document: [id number] EL ACCOMMODATION INSPECTOR Brief Op Note - Yakov Muniz MD - 12/28/2021 5:50 AM CST [facility] Brief Operative Note Pre-operative diagnosis: Menorrhagia [N92.0] [...] Filshie clip not seen. Normal upper abdomen EL ACCOMMODATION INSPECTOR documented in this encounter Plan of Treatment Upcoming Encounters Date Type Specialty Care Team Description 10/21/2022 Office Visit Pulmonology Obdulio Barrera MD [address] [place] [address] [phone] (Wo rk) 10/25/2022 PRE VISIT ENT Charo Burton MD Previsit [address] [place] [address] [phone] (Wo rk) 10/25/2022 Office Visit Charo Carter MD [address] [place] [address] [phone] (Wo rk) 10/25/2022 Office Visit ENT Provider, Ent Dysphonia Blowing Weasand 10/25/2022 Virtual Visit Pain & [place] [address] [place], [place] [address] 10/28/2022 Appointment Speech Therapy Anabel Chew, RETURN CHECKER [address] 644625 (Wo rk) 11/17/2022 Appointment Speech Therapy Anabel Chew, CELINE [address] 272555 (Wo rk) 12/01/2022 Office Visit Pain & [place] [address] [place], [place] [address] (Wo rk) 12/23/2022 Office Visit Neurology Colby Yeung MD [address] [place] [address] (Wo rk) documented as of this encounter Procedures Procedure Name Priority Date/Time Associated Comments Diagnosis SURGICAL PATHOLOGY Routine 12/28/2021 9:11 AM Res ults for this EXAM TRAVEL ACCOMMODATION INSPECTOR procedure are i n the results section. HYSTERECTOMY, TOTAL, 12/28/2021 7:33 AM Menorrha quinten LAPAROSCOPIC TRAVEL ACCOMMODATION INSPECTOR Dysmenorrhea Dyspareunia in female HEMOGLOBIN STAT 12/28/2021 6:53 AM Results f or this TRAVEL ACCOMMODATION INSPECTOR procedure are i n the results section. TYPE AND SCREEN, STAT 12/28/2021 6:35 AM Resul ts for this ADULT TRAVEL ACCOMMODATION INSPECTOR procedure are i n the results section. ABO/RH TYPE AND STAT 12/28/2021 6:35 AM Result s for this SCREEN TRAVEL ACCOMMODATION INSPECTOR procedure are i n the results section. documented in this encounter Results Surgical Pathology Exam (12/28/2021 9:11 AM TRAVEL ACCOMMODATION INSPECTOR) Component Value Ref Test Analysis Performed At [facility] Range Method Time Signature Case Report Surgical Pathology Report ? Case: [id number] ? 12/30/2021 RH Authorizing Provider: ??Yakov Watson, ?? Collected: ? 12/28/2021 09:11 AM ? 6:34 PM LABORATOR Y ? MD ? TRAVEL ACCOMMODATION INSPECTOR Ordering Location: ? [facility] ?? Received: ?12/28/2021 09:36 AM ? Main OR ? Pathologist: ? Daria Banuelos MD ? Specimen: ?Uterus, Cervi x, Bilateral Fallopian Tubes, UTERUS, CERVIX, AND BILATERAL FALLOPIAN ? TUBES ? Final Uterus, right fallopian tube , left fallopian tube, total hysterectomy with bilateral salpingectomy: 12/30/2021 RH El ectronically Diagnosis -Secretory pattern endometrium without hyperplasia. 6:34 PM LABORATORY signed by -Adenomyosis. TRAVEL ACCOMMODATION INSPECTOR Daria Banuelos, -Multiple intramural uterine leiomyomas (largest 1.2 cm). on 12/30/2021 -Negative for cervical squamous intraepi thelial lesion or glandular dysplasia. at 6:34 PM -Unremarkable bilateral fallopian tubes (status post tubal l igation). -Benign paratubal cysts, bilateral. -Negative for malignancy. Clinical Status post tubal 12/30/2021 RH Information ligation and 6:34 PM LABORATORY status post TRAVEL ACCOMMODATION INSPECTOR endometrial ablation in 2018. Persistent menometrorrhagia, dysmenorrhea [...] ligated left fallopian tube with fimbria (5.1 TRAVEL ACCOMMODATION INSPECTOR x 0.6 x 0.6 cm). The endome [...] 0.8 cm. No ovarian tissue identified grossly. Hand Launderer sections are submitted. Cassette 1: Anterior cervix Cassette 2: Posterior cervix Cassette 3-4 uterine wall with endometrium Cassette 5: Leiomyomas Cassette 6: Area of myometrial induration Cassette 7: Right fallopian tube Cassette 8: Left fallopian tube (FLORES Shell ASCP) Microscopic Microscopic examination is performed. 12/30/2021 RH Description 6:34 PM LABORATORY TRAVEL ACCOMMODATION INSPECTOR Performing The technical 12/30/2021 RH Labs component of this 6:34 PM LABORATORY testing was TRAVEL ACCOMMODATION INSPECTOR completed at [facility] Laboratory Case Images 12/30/2021 RH 6:34 PM LABORATORY TRAVEL ACCOMMODATION INSPECTOR Specimen Anatomical Collection Method Collection Time Receive d Time (Source) Location / / Volume Laterality Tissue UTERUS AND 12/28/2021 9:11 AM 9:36 FALLOPIAN TUBES, TRAVEL ACCOMMODATION INSPECTOR AM TRAVEL ACCOMMODATION INSPECTOR CS / Unknown Yakov Muniz MD LAB - BEAKER AP Performing Organization Address City/State/ZIP Code [place] [phone] Care Lab [address] Lab (1st floor, no room number) Hemoglobin (12/28/2021 6:53 AM TRAVEL ACCOMMODATION INSPECTOR) P athologist Signature Hemoglobin 12.2 11.7 - 15.7 12/28/2021 RH LABORATORY g/dL 7:24 AM TRAVEL ACCOMMODATION INSPECTOR Specimen Anatomical Collection Method / Collection Time Recei edil Time (Source) Location / Volume Laterality Blood STRUCTURE OF RIGHT Venipuncture / 12/28/2021 6:53 02/03/2022 7:16 UPPER LIMB / Unknown AM TRAVEL ACCOMMODATION INSPECTOR AM TRAVEL ACCOMMODATION INSPECTOR Unknown Yakov Muniz MD LAB - BLOOD ORDERABLES Performing Organization Address City/[facility]/ZIP Code [place] [phone] Care Lab [address] Lab (1st floor, no room number) Adult Type and Screen (12/28/2021 6:35 AM TRAVEL ACCOMMODATION INSPECTOR) Patholo gist Method Time Signature ABO/RH(D) O POS 12/28/2021 RH BLOOD 6:15 AM TRAVEL ACCOMMODATION INSPECTOR BANK Antibody Negative Negative 12/28/2021 RH BLOOD Screen 6:15 AM TRAVEL ACCOMMODATION INSPECTOR BANK SPECIMEN [id number] 12/28/2021 RH BLOOD EXPIRATION 6:15 AM TRAVEL ACCOMMODATION INSPECTOR BANK DATE Specimen Anatomical Collection Method / Collection Time Recei edil Time (Source) Location / Volume Laterality Blood BLOOD SPECIMEN / Venipuncture / 12/28/2021 6:35 2021 7:15 Unknown Unknown AM TRAVEL ACCOMMODATION INSPECTOR AM TRAVEL ACCOMMODATION INSPECTOR Yakov Muniz MD LAB - BLOOD BANK TEST ORDER Performing Organization Address City/[facility]/ZIP Code Phon e Number RH BLOOD BANK [address] [place] [address] documented in this encounter Visit Diagnoses Diagnosis S/P laparoscopic hysterectomy - Primary 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 Hold if patient has taken acetaminophen within 4 hours. Maximum acetaminophen dose from all sources = 75 mg/kg/day not to exceed 4 grams/day., Pre-procedure fentaNYL (PF) (SUBLIMAZE) injection 25 m cg Given 12/28/2021 10:08 AM TRAVEL ACCOMMODATION INSPECTOR 25 mcg 25 mcg, Intravenous, EVERY 5 [...] HYDROmorphone (DILAUDID)., PACU Given 12/28/2021 9:58 AM TRAVEL ACCOMMODATION INSPECTOR 25 mcg fentaNYL (PF) (SUBLIMAZE) injection 25 m cg Given 12/28/2021 11:50 AM TRAVEL ACCOMMODATION INSPECTOR 25 mcg 25 mcg, Intravenous, EVERY 15 [...] injection 4 mg Given 12/28/2021 10:40 AM TRAVEL ACCOMMODATION INSPECTOR 4 mg 4 mg, Intravenous, EVERY 30 [...] tablet 5 mg Given 12/28/2021 10:22 AM TRAVEL ACCOMMODATION INSPECTOR 5 mg 5 mg, Oral, EVERY 4 [...] Left Ear 72 hr patch 1 patch TRAVEL ACCOMMODATION INSPECTOR 1 patch, Transdermal, EVERY 72 HOURS, Administer [...] 0.9% (bag) irrigation Given 12/28/2021 9:09 AM TRAVEL ACCOMMODATION INSPECTOR 2,000 mLs PRN, Starting on Mon12/28/21 at 0909, Intra-procedure documented in this encounter Active and Recently Administered Medications Times are shown in TRAVEL ACCOMMODATION INSPECTOR. Scheduled Medication Order 12/26/2021 12/27/2021 12/28/2021 acetaminophen [...] 730 (Given - Provider: Ni Landry APRN ROLLER PRINTING SUPERVISOR) Routine, 2 g, Intravenous, PRE-OP/PRE-WA OCEDURE, Starting on Mon12/28/21 at 0606, For [...] 1 patch, Transdermal, EVERY 72 HOURS, Ad lead javascript engineer over 72 Hours, First dose on Mon12/28/21 [...] side ef fects. Hold while on IV DIRECTOR DATA ANALYTICS or with regular IV opioid dosing. prochlorperazine [...] of this encounter Care Teams Director Of Web Marketing Relationship Specialty Start Date End Date Aydee Burton, PCP - General Nurse Practitioner - 05/17/21 BANJO REPAIRER [facility] Family [address] [place] [address] Aydee Burton, Assigned PCP 04/28/21 BANJO REPAIRER CYCLE ANALYST [address] [place], [place] [address] ErwinLouisa Grisel, Assigned Neuroscience 07/11/21 BANJO REPAIRER CYCLE ANALYST Provider [address] [place], [place] [address] Se Levy, Lead Case Supervisor 08/05/21 05/12/22 [facility] Clari Ruiz Pharmacist Pharmacist 08/06/21 06/07/22 Jocelyn, [facility] [address] [place] [address] aCmden, Assigned Sleep 08/01/21 Angel Turcios, Provider [address] [place], [place] [address] Lesly Celaya MD Assigned Surgical 09/05/21 [address] Provider [place], [place] [phone] Tawana Patel MA [facility] Health 09/30/21 Worker Yakov Muniz Assigned OBGYN 11/07/21 MD Onesimo Provider [address] [place], [place] [phone] Mago Swift, [facility] Lead Case Supervisor Integrated Logistics Support Manager - 08/05/21 Clinical documented as of this encounter
--- OUTSIDE RECORDS SUMMARY | 2022-10-21 09:01 | XMS_ITS | Encounter Summary ---
:1980 Author Organization [place] Address [address] [place] [address] Care Team Providers Name Role Phone Aydee Burton GAS PROCESSING PLANT OPERATOR APIARIST Primary Care Provider Aydee Burton GAS PROCESSING PLANT OPERATOR APIARIST Unavailable [phone] Louisa Hood GAS PROCESSING PLANT OPERATOR APIARIST Unavailable [phone] Se Levy SHRUB GROWER Unavailable Unavailable Clari Ruiz [facility] Unavailable [phone] Angel Hannah MD Unavailable Lesly Celaya MD Unavailable Tawana Patel MA Unavailable Unavailable aRmses Mcpherson MD Unavailable [phone] Mago Swift FINE ARTIST Unavailable Encounter Details Date Type Department Care [...] at Date Recorded Female 11/09/2021 7:53 PM EVP BUSINESS DEVELOPMENT COVID-19 Exposure Response Date Recorded In the last month, have you been in contact with No / Unsure 12/20/2021 5:04 PM EVP BUSINESS DEVELOPMENT someone who was confirmed or suspected to have Coronavirus / COVID-19? documented as of this encounter Plan of Treatment Upcoming Encounters Date Type Specialty Care Team Description 10/21/2022 Office Visit Pulmonology Odbulio Barrera MD [address] [place] [address] (Wo rk) 10/25/2022 PRE VISIT Charo Carter MD Previsit [address] [place] [address] (Wo rk) 10/25/2022 Office Visit Charo Carter MD [address] [place] [address] (Wo rk) 10/25/2022 Office Visit ENT Provider, Jeannette Ent Dysphonia Physics Faculty Member 10/25/2022 Virtual Visit Pain & [place] [address] [place], [place] [address] 10/28/2022 Appointment Speech Therapy Anabel Chew, PERFORMANCE IMPROVEMENT DIRECTOR [address] [address] (Wo rk) 11/17/2022 Appointment Speech Therapy Anabel Chew, PERFORMANCE IMPROVEMENT DIRECTOR [address] [address]65 (Wo rk) 12/01/2022 Office Visit Pain & [place] [address] [place], [place] [address] (Wo rk) 12/23/2022 Office Visit Neurology Colby Yeung MD [address] [place] [phone] (Wo rk) documented as of this encounter Visit Diagnoses Not on filedocumented in this encounter Additional Health Concerns Assessment Noted Time PHQ-9 Depression Total Score: 22 06/28/2021 7:03 AM CD T documented as of this encounter Care Teams Imaging Specialist Relationship Specialty Start Date End Date Aydee Burton, PCP - General Nurse Practitioner - 05/17/21 GAS PROCESSING PLANT OPERATOR APIARIST Family [address] [place], [place] [phone] Aydee Burton, Assigned PCP 04/28/21 GAS PROCESSING PLANT OPERATOR APIARIST [address] [place], [place] [phone] Louisa Hood, Assigned Neuroscience 07/11/21 GAS PROCESSING PLANT OPERATOR APIARIST Provider [address] [place] [address] [place] [phone] Se Levy, Lead Program Evaluation Consultant 08/05/21 05/12/22 Clari Francois Pharmacist Pharmacist 08/06/21 06/07/22 Jocelyn, [facility] [address] [place] [address] Camden, Assigned Sleep 08/01/21 Angel Turcios, Provider [address] [place], [place] [address] Lesly Celaya MD Assigned Surgical 09/05/21 [address] Provider [place], [place] [address] Tawana Patel MA [facility] 09/30/21 Worker Ramses Mcpherson Assigned OBGYN 11/07/21 MD Onesimo Provider [address] [place], [place] [phone] Mago Swift [facility] Lead Program Evaluation Consultant Gas Turbine Powerplant Mechanic Helper - 08/05/21 Clinical documented as of this encounter
--- OUTSIDE RECORDS SUMMARY | 2022-10-21 09:01 | XMS_ITS | Encounter Summary ---
:1980 Author Organization [facility] Address [address] [place] [address] Care Team Providers Name Role Phone Aydee Burton UNITIZER HEALTH AND SAFETY TRAINER Primary Care Provider Aydee Burton UNITIZER HEALTH AND SAFETY TRAINER Unavailable [phone] Louisa Hood UNITIZER HEALTH AND SAFETY TRAINER Unavailable [phone] Se Levy DISABILITY PROGRAM NAVIGATOR Unavailable Unavailable Clari Ruiz [facility] Unavailable [phone] Angel Hannah MD Unavailable Lesly Celaya MD Unavailable Tawana Patel MA Unavailable Unavailable Ramses Mcpherson MD Unavailable [phone] Mago Swift GROUND PRODUCTS DIRECTOR Unavailable Encounter Details Date Type Department Care [...] How often do you attend methodist or baptism services? Never 08/05/2021 Do you [...] at Date Recorded Female 11/09/2021 7:53 PM TENTMAKER COVID-19 Exposure Response Date Recorded In the last month, have you been in contact with No / Unsure 12/28/2021 5:49 AM TENTMAKER someone who was confirmed or suspected to have Coronavirus / COVID-19? documented as of this encounter Plan of Treatment Upcoming Encounters Date Type Specialty Care Team Description 10/21/2022 Office Visit Pulmonology Obdulio Barrera MD [address] [place] [address] (Wo rk) 10/25/2022 PRE VISIT Charo Carter MD Previsit [address] [place] [address] (Wo rk) 10/25/2022 Office Visit Charo Carter MD [address] [place] [address] (Wo rk) 10/25/2022 Office Visit ENT Provider, Jeannette Ent Dysphonia Hvac/R Service Technician 10/25/2022 Virtual Visit Pain & [place] [address] [place], [place] [address] 10/28/2022 Appointment Speech Therapy Anabel Chew, CURB WORKER [address] [address] (Wo rk) 11/17/2022 Appointment Speech Therapy Anabel Chew, CURB WORKER [address] [phone] (Wo rk) 12/01/2022 Office Visit Pain & [place] [address] [place], [place] [address] (Wo rk) 12/23/2022 Office Visit Neurology Colby Yeung MD [address] [place] [address] (Wo rk) documented as of this encounter Visit Diagnoses Not on filedocumented in this encounter Additional Health Concerns Assessment Noted Time PHQ-9 Depression Total Score: 22 06/28/2021 7:03 AM CD T documented as of this encounter Care Teams Cryogenic Transport Driver Relationship Specialty Start Date End Date Aydee Burton, PCP - General Nurse Practitioner - 05/17/21 UNITIZER HEALTH AND SAFETY TRAINER Family [address] [place], [place] [phone] Aydee Burton, Assigned PCP 04/28/21 UNITIZER HEALTH AND SAFETY TRAINER [address] [place], [place] [phone] Louisa Hood, Assigned Neuroscience 07/11/21 UNITIZER HEALTH AND SAFETY TRAINER Provider [address] [place] [address] [place] [phone] Se Levy, Lead Pellet Preparation Operator 08/05/21 05/12/22 Clari Francois Pharmacist Pharmacist 08/06/21 06/07/22 Jocelyn, [facility] [address] [place] [address] Camden, Assigned Sleep 08/01/21 Angel Turcios, Provider [address] [place], [place] [address] Lesly Celaya MD Assigned Surgical 09/05/21 [address] Provider [place], [place] [phone] Tawana Patel MA [facility] Health 09/30/21 Worker Ramses Mcpherson Assigned OBGYN 11/07/21 MD Onesimo Provider [address] [place], [place] [phone] Mago Swift [facility] Lead Pellet Preparation Operator Expander - 08/05/21 Clinical documented as of this encounter
--- OUTSIDE RECORDS SUMMARY | 2022-10-21 09:01 | XMS_ITS | Encounter Summary ---
:1980 Author Organization [place] Address [address] [place] [address] Care Team Providers Name Role Phone Aydee Burton PROBATION AND PATROL AGENT DRAG OUT WORKER Primary Care Provider [phone] Aydee Burton PROBATION AND PATROL AGENT DRAG OUT WORKER Unavailable [phone] Louisa Hood PROBATION AND PATROL AGENT DRAG OUT WORKER Unavailable [phone] Se Levy SCAFFOLDING HELPER Unavailable Unavailable Clari Ruiz [facility] Unavailable [phone] Angel Hannah MD Unavailable Lesly Celaya MD Unavailable Tawana Patel MA Unavailable Unavailable Ramses Mcpherson MD Unavailable [phone] HOGGER OPERATOR Unavailable Encounter Details Date Type Department [...] How often do you attend sabianism or jainism services? Never 08/05/2021 Do you [...] at Date Recorded Female 11/09/2021 7:53 PM DEVELOPER AUTOMATIC COVID-19 Exposure Response Date Recorded In the last month, have you been in contact with No / Unsure 12/24/2021 1:43 PM DEVELOPER AUTOMATIC someone who was confirmed or suspected to have Coronavirus / COVID-19? documented as of this encounter Plan of Treatment Upcoming Encounters Date Type Specialty Care Team Description 10/21/2022 Office Visit Pulmonology Obdulio Barrera MD [address] [place] [address] (Wo rk) 10/25/2022 PRE VISIT Charo Carter MD Previsit [address] [place] [address] (Wo rk) 10/25/2022 Office Visit Charo Carter MD [address] [place] [address] (Wo rk) 10/25/2022 Office Visit ENT Provider, Jeannette Ent Dysphonia Plunger Scoop Operator 10/25/2022 Virtual Visit Pain & [place] [address] [place], [place] [address] 10/28/2022 Appointment Speech Therapy Anabel Chew, FEEDER TENDER [address] [phone] (Wo rk) 11/17/2022 Appointment Speech Therapy Anabel Chew, FEEDER TENDER [address] [address] (Wo rk) 12/01/2022 Office Visit Pain & [place] [address] [place], [place] [address] (Wo rk) 12/23/2022 Office Visit Neurology Colby Yeung MD [address] [place] [address]35 (Wo rk) documented as of this encounter Visit Diagnoses Not on filedocumented in this encounter Additional Health Concerns Assessment Noted Time PHQ-9 Depression Total Score: 22 06/28/2021 7:03 AM CD T documented as of this encounter Care Teams Doughnut Dough Mixer Relationship Specialty Start Date End Date Aydee Burton, PCP - General Nurse Practitioner - 05/17/21 PROBATION AND PATROL AGENT DRAG OUT WORKER Family [address] [place], [place] [phone] Aydee Burton, Assigned PCP 04/28/21 PROBATION AND PATROL AGENT DRAG OUT WORKER [address] [place], [place] [phone] Louisa Hood, Assigned Neuroscience 07/11/21 PROBATION AND PATROL AGENT DRAG OUT WORKER Provider [address] [place] [address] [place] [address]345 Se Levy, Lead Manager Web Application 08/05/21 05/12/22 Clari Francois Pharmacist Pharmacist 08/06/21 06/07/22 Jocelyn, [facility] [address] [place] [address] [place], Assigned Sleep 08/01/21 Angel Turcios, Provider [address] [place], [place] [address] Lesly Celaya MD Assigned Surgical 09/05/21 [address] Provider [place], [place] [address] Tawana Patel MA [facility] 09/30/21 Worker Ramses Mcpherson Assigned OBGYN 11/07/21 MD Onesimo Provider [address] [place], [place] [phone] Mago Swift [facility] Lead Manager Web Application Debarker Operator - 08/05/21 Clinical documented as of this encounter
--- OUTSIDE RECORDS SUMMARY | 2022-10-21 09:01 | XMS_ITS | Encounter Summary ---
:1980 Author Organization [place] Address [address] [place] [address] Care Team Providers Name Role Phone Aydee Burton PHOTOGRAPHIC EQUIPMENT TECHNICIAN DOCKING SAW OPERATOR Primary Care Provider [phone] Aydee Burton PHOTOGRAPHIC EQUIPMENT TECHNICIAN DOCKING SAW OPERATOR Unavailable [phone] Louisa Hood PHOTOGRAPHIC EQUIPMENT TECHNICIAN DOCKING SAW OPERATOR Unavailable [phone] Se Levy REGISTER OF WILLS Unavailable Unavailable Clari Ruiz [facility] Unavailable [phone] Angel Hannah MD Unavailable Lesly Celaya MD Unavailable Tawana Patel MA Unavailable Unavailable Ramses Mcpherson MD Unavailable [phone] INSTRUMENT ROOM TECHNICIAN Unavailable Encounter Details Date Type Department Care Team Description 12/15/2021 [facility] Ramses Mcphersono unter for [facility] OR MD Onesimo screening for other [address] viral diseases [place], [place] [address] (Primary Dx) [id number] [phone] Social History Tobacco Use Types Packs/Day Years [...] How often do you attend religious or samaritan services? 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/2021 7:53 PM CORPORATE BANKING OFFICER COVID-19 Exposure Response Date Recorded In the last month, have you been in contact with No / Unsure 12/14/2021 2:40 PM CORPORATE BANKING OFFICER someone who was confirmed or suspected to have Coronavirus / COVID-19? documented as of this encounter Plan of Treatment Upcoming Encounters Date Type Specialty Care Team Description 10/21/2022 Office Visit Pulmonology Obdulio Barrera MD [address] [place] [address] (Wo rk) 10/25/2022 PRE VISIT ENT Charo Burton MD Previsit [address] [place] [phone] (Wo rk) 10/25/2022 Office Visit ENT Charo Burton MD [address] [place] [phone] (Wo rk) 10/25/2022 Office Visit ENT Provider, Ent Dysphonia Journal Clerk 10/25/2022 Virtual Visit Pain & [place]iative [place] [address] [place], [place] [address] 10/28/2022 Appointment Speech Therapy Anabel Chew, SURPLUS PROPERTY DISPOSAL AGENT [address] [place], [place] [phone] (Wo rk) 11/17/2022 Appointment Speech Therapy Anabel Chew, SURPLUS PROPERTY DISPOSAL AGENT [address] [place], [place] [address] (Wo rk) 12/01/2022 Office Visit Pain & [place] [address] [place], [place] [address] (Wo rk) 12/23/2022 Office Visit Neurology Colby Yeung MD [address] [place], [place] [phone] (Wo rk) documented as of this encounter Results Asymptomatic COVID-19 Virus (Coronavirus) by PCR Nose (12/24/2021 1:45 PM CORPORATE BANKING OFFICER) [facility] Method Time Signature SARS CoV2 PCR Negative Negative, 12/25/2021 [facility] Testing sent to 11:04 AM LABORATORY reference lab. CORPORATE BANKING OFFICER Results will be returned via unsolicited result Comment: NEGATIVE: SARS-CoV-2 (COVID-19) RNA not detected, presumed negative. Specimen Anatomical Collection Method Collection Time Receive d Time (Source) Location / / Volume Laterality Swab NASAL STRUCTURE / Non-blood 12/24/2021 1:45 PM 12/14 1:45 Unknown Collection / CORPORATE BANKING OFFICER PM CORPORATE BANKING OFFICER Unknown Narrative [facility] - 12/25/2021 11:04 AM CORPORATE BANKING OFFICER Testing was performed using the amara SARS-CoV-2 assay on the amara RetailTower0 System. This test should be ordered for [...] This urbano t was validated by the [facility] Infectious Diseases Diag nostic Laboratory. This laboratory is certified under the [facility] al Laboratory Improvement Amendments of 1988 (CLIA-88) as qualifie d to perform high and/or moderate complexity laboratory testing. Ramses Mcpherson MD LAB - MICRO GENERAL ORDERABL ES Performing Organization Address City/State/ZIP Code Phon e Number [facility] [place] [address] Diag. Lab [address] [facility], Room D297 [facility] Infectious [place], [place] [phone] Diseases Diagnostic [phone], [facility] Lab (IDDL) [address] [facility], Room D297 documented in this encounter Visit Diagnoses Diagnosis Encounter for screening for other viral diseases - Primary documented in this encounter Additional Health Concerns Assessment Noted Time PHQ-9 Depression Total Score: 22 06/28/2021 7:03 AM CD T documented as of this encounter Care Teams Aviation Maintenance Instructor Relationship Specialty Start Date End Date Aydee Burton, PCP - General Nurse Practitioner - 05/17/21 PHOTOGRAPHIC EQUIPMENT TECHNICIAN DOCKING SAW OPERATOR Family [address] [place], [place] [address] Aydee Burton, Assigned PCP 04/28/21 PHOTOGRAPHIC EQUIPMENT TECHNICIAN DOCKING SAW OPERATOR [address] [place], [place] [address] Louisa Hood, Assigned Neuroscience 07/11/21 PHOTOGRAPHIC EQUIPMENT TECHNICIAN DOCKING SAW OPERATOR Provider [address] [place], [place] [address] Se Levy, Lead Seed Buyer 08/05/21 05/12/22 REGISTER OF WILLS Clari Ruiz Pharmacist Pharmacist 08/06/21 06/07/22 Jocelyn, [facility] [address] [place], [place] [phone] [place], Assigned Sleep 08/01/21 Angel Turcios, Provider [address] [place], [place] [address] Lesly Celaya MD Assigned Surgical 09/05/21 [address] Provider [place], [place] [phone] Tawana Patel MA [facility] 09/30/21 Worker Ramses Mcpherson Assigned OBGYN 11/07/21 MD Onesimo Provider [address] [place], [place] [address] Mago Swift, [facility] Lead Seed Buyer Carton Liner - 08/05/21 Clinical documented as of this encounter
--- OUTSIDE RECORDS SUMMARY | 2022-10-21 09:01 | XMS_ITS | Encounter Summary ---
:1980 Author Organization [place] Address [address] [place] [address] Care Team Providers Name Role Phone Aydee Burton BERRY GROWER BOAT DECKHAND Primary Care Provider Aydee Burton BERRY GROWER BOAT DECKHAND Unavailable [phone] Louisa Hood BERRY GROWER [employer]AT DECKHAND Unavailable [phone] Se Levy CLERICAL CAR CHECKER Unavailable Unavailable Clari Ruiz [facility] Unavailable [phone] Angel Hannah MD Unavailable Lesly Celaya MD Unavailable Tawana Patel MA Unavailable Unavailable Ramses Mcpherson MD Unavailable [phone] ENGINE COWLING INSTALLER Unavailable Encounter Details Date Type Department Care [...] er 08/05/2021 How often do you attend baptist or sikh services? Never 08/05/2021 Do you belong to any clubs or organizations such as baptist N o 08/05/2021 groups, unions, fraternal or [...] at Date Recorded Female 11/09/2021 7:53 PM ROR ENGINEER COVID-19 Exposure Response Date Recorded In the last month, have you been in contact with No / Unsure 12/22/2021 11:32 AM ROR ENGINEER someone who was confirmed or suspected to have Coronavirus / COVID-19? documented as of this encounter Plan of Treatment Upcoming Encounters Date Type Specialty Care Team Description 10/21/2022 Office Visit Pulmonology Obdulio Barrera MD [address] [place] [address] (Wo rk) 10/25/2022 PRE VISIT Charo Carter MD Previsit [address] [place] [address] (Wo rk) 10/25/2022 Office Visit Charo Carter MD [address] [place] [address] (Wo rk) 10/25/2022 Office Visit ENT Provider, Jeannette Ent Dysphonia Skip Hoist Engineer 10/25/2022 Virtual Visit Pain & [place] [address] [place], [place] [address] 10/28/2022 Appointment Speech Therapy Anabel Chew, WOOD CRAFTSMAN [address] [phone] (Wo rk) 11/17/2022 Appointment Speech Therapy Anabel Chew, WOOD CRAFTSMAN [address] [address] (Wo rk) 12/01/2022 Office Visit Pain & [place] [address] [place], [place] [address] (Wo rk) 12/23/2022 Office Visit Neurology Colby Yeung MD [address] [place] [address] (Wo rk) documented as of this encounter Visit Diagnoses Not on filedocumented in this encounter Additional Health Concerns Assessment Noted Time PHQ-9 Depression Total Score: 22 06/28/2021 7:03 AM CD T documented as of this encounter Care Teams Wire Wrapper Machine Operator Relationship Specialty Start Date End Date Aydee Burton, PCP - General Nurse Practitioner - 05/17/21 BERRY GROWER BOAT DECKHAND Family [address] [place], [place] [phone] Aydee Burton, Assigned PCP 04/28/21 BERRY GROWER BOAT DECKHAND [address] [place], [place] [phone] Louisa Hood, Assigned Neuroscience 07/11/21 BERRY GROWER BOAT DECKHAND Provider [address] [place] [address] [place] [phone] eS Levy, Lead Staff Educator 08/05/21 05/12/22 Clari Francois Pharmacist Pharmacist 08/06/21 06/07/22 Jocelyn, [facility] [address] [place] [address] [place], Assigned Sleep 08/01/21 Angel Turcios, Provider [address] [place], [place] [address] Lesly Celaya MD Assigned Surgical 09/05/21 [address] Provider [place], [place] [address] Tawana Patel MA [facility] 09/30/21 Worker Ramses Mcpherson Assigned OBGYN 11/07/21 MD Onesimo Provider [address] [place], [place] [phone] Mago Swift [facility] Lead Staff Educator Online Marketing Coordinator - 08/05/21 Clinical documented as of this encounter
--- OUTSIDE RECORDS SUMMARY | 2022-10-21 09:01 | XMS_ITS | Encounter Summary ---
:1980 Author Organization [place] Address [address] [place] [address] Care Team Providers Name Role Phone Aydee Nam APRN MAINTENANCE MACHINIST Primary Care Provider Aydee Nam WEB CONTENT & SOCIAL MEDIA MANAGER MAINTENANCE MACHINIST Unavailable [phone] Louisa Hood WEB CONTENT & SOCIAL MEDIA MANAGER MAINTENANCE MACHINIST Unavailable [phone] Se Levy PHOTOENGRAVING SKETCH MAKER Unavailable Unavailable Clari Ruiz [facility] Unavailable [phone] Angel Hannah MD Unavailable Lesly Celaya MD Unavailable Tawana Patel MA Unavailable Unavailable Ramses Mcpherson MD Unavailable [phone] RADIOLOGIST DIAGNOSTIC Unavailable Reason for Visit Reason Comments Pre-Op Exam Encounter Details Date Type Department Care Team Description 12/22/2021 Office Visit [facility] Aydee Nam Preoperati ve examination (Primary Dx); [facility] [place] ELADIO Mendez CNP Left elbow pain; [address] [place] [address] related to worker's compensation claim [place] [address] [place], [place] [phone] Social History Tobacco Use Types Packs/Day Years [...] How often do you attend cheondoism or nondenominational services? Never 08/05/2021 Do you [...] at Date Recorded Female 11/09/2021 7:53 PM REVENUE CYCLE ADMINISTRATOR COVID-19 Exposure Response Date Recorded In the last month, have you been in contact with No / Unsure 12/22/2021 11:32 AM REVENUE CYCLE ADMINISTRATOR someone who was confirmed or suspected to have Coronavirus / COVID-19? documented as of this encounter Last Filed Vital Signs Vital Sign Reading Time Taken Comments Blood Pressure 118/71 12/22/2021 11:46 AM REVENUE CYCLE ADMINISTRATOR Pulse 117 12/22/2021 11:46 AM REVENUE CYCLE ADMINISTRATOR Temperature 36.4 ??C (97.6 ??F) 12/22/2021 11:46 AM REVENUE CYCLE ADMINISTRATOR Respiratory Rate - - Oxygen Saturation 96% 12/22/2021 11:46 AM REVENUE CYCLE ADMINISTRATOR Inhaled Oxygen Concentration - - Weight 92.1 kg (203 lb) 12/22/2021 11:46 AM REVENUE CYCLE ADMINISTRATOR Height 170.2 cm (5' 7) 12/22/2021 11:46 AM REVENUE CYCLE ADMINISTRATOR Body Mass Index 31.79 12/22/2021 11:46 AM REVENUE CYCLE ADMINISTRATOR documented in this encounter Patient Instructions Patient InstructionsAydee Nam, ELADIO MAINTENANCE MACHINIST - 12/22/2021 11:50 AM REVENUE CYCLE ADMINISTRATOR Preparing for Your Surgery Getting started A [...] list of medicines, including herbal treatments and mwxq-vyj-rjzvlxn drugs ?? Whether the patient has a [...] having surgery. (If you don't have insurance,call [phone].) ?? Call your clinic if there's any [...] your health care provider. Copyright ?? 2018 [facility]. All rights reserved. Clinically reviewed by Tika Garrett MD. Swidjit [id number] - REV 06/02. NUE CYCLE ADMINISTRATOR documented in this encounter Progress Notes Aydee Nam APRN CNP - 12/22/2021 11:50 AM CST Images from the original note were not included. [address] [address] Primary Provider: Aydee Nam Pre-op Performing Provider: AYDEE NAM PREOPERATIVE EVALUATION: Today's date: 12/22/2021 Marta Hill is a 41 year old female who presents for a preoperative evaluation. Surgical Information: Surgery/Procedure: Left elbow - Hardware removed Surgery Location: [facility] Surgeon: Dr Harman Linder Surgery Date: 01/10/2022 Time of Surgery: TBD Where patient plans to recover: At home with family Fax number for surgical facility: [phone] Type of Anesthesia Anticipated: General Assessment & Plan The proposed surgical procedure is considered INTERMEDIATE risk. Preoperative examination Left elbow pain Encounter related to worker's compensation claim Cleared for surgery without concerns. Marta verbalizes understanding of plan of care and is in agreement. - HCG Qual, Urine ([id number]) Possible Sleep Apnea: Borderline plans to get [...] work and fell, landing forward on elbows. [place] a snap. c/o tinging in left hand, [...] or Living Will: Declined Preoperative Review of OIL BURNER SERVICER AND INSTALLER: OIL BURNER SERVICER AND INSTALLER reviewed - controlled substances reflected in medication [...] GENITOURINARY SURGERY Tubal ligation and ablasion ??? GEOLOGICAL ENGINEER SURGERY not sure tubal ligation and [...] the past 24 hour(s)) HCG Qual, Urine ([id number]) Collection Time: 12/22/21 11:48 AM Result Value [...] Signed Electronically by: Aydee Nam APRN CNP NUE CYCLE ADMINISTRATOR Aydee Nam APRN CNP - 12/22/2021 11:50 AM CST Images from the original note were not included. Please fax for upcoming ortho surgery. MAURO SpiveyBC NUE CYCLE ADMINISTRATOR Ziyad Frausto - 12/22/2021 11:50 AM CST Faxed Pre Op to [facility] @ #[phone]. Ziyad Frausto Toe Former NUE CYCLE ADMINISTRATOR documented in this encounter Plan of Treatment Upcoming Encounters Date Type Specialty Care Team Description 10/21/2022 Office Visit Pulmonology Obdulio Barrera MD [address] [facility] [address] [place] [address] (Wo rk) 10/25/2022 PRE VISIT ENT Charo Burton MD Previsit [address] [place], [place] [phone] (Wo rk) 10/25/2022 Office Visit Charo Carter MD [address] [place], [place] [address] (Wo rk) 10/25/2022 Office Visit ENT Provider, Jeannette Ent Dysphonia Hand Splitter 10/25/2022 Virtual Visit Pain & Palliative [place] [address] [place], [place] [address] 10/28/2022 Appointment Speech Therapy Anabel Chew, MACHINE SETTER SUPERVISOR [address] [place], [place] [phone] (Wo rk) 11/17/2022 Appointment Speech Therapy Anabel Chew, MACHINE SETTER SUPERVISOR [address] [place], [place] [address] (Wo rk) 12/01/2022 Office Visit Pain & [place] [address] [place], [place] [address] (Wo rk) 12/23/2022 Office Visit Neurology Colby Yeung MD [address] [address] (Wo rk) documented as of this encounter Procedures Procedure Name Priority Date/Time Associated Diagnosis Comme nts HCG QUALITATIVE Routine 12/22/2021 11:48 Preoperative Results for this URINE AM REVENUE CYCLE ADMINISTRATOR examination procedure are i n the results section. documented in this encounter Results HCG Qual, Urine ([id number]) (12/22/2021 11:48 AM REVENUE CYCLE ADMINISTRATOR) [facility] gist Method Time Signature hCG Urine Negative Negative NIKOLAS 12/22/2021 [facility] Qualitative 12:05 PM REVENUE CYCLE ADMINISTRATOR Comment: This test is for screening purp oses. Results should be interpreted along with the clinical picture. Confirmation testing is available if warranted by ordering [id number], HCG Quantitative . Specimen Anatomical Collection Method Collection Time Receive d Time (Source) Location / / Volume Laterality Urine MID-STREAM URINE Non-blood 12/22/2021 11:48 022 SPECIMEN / Unknown Collection / AM REVENUE CYCLE ADMINISTRATOR 11:56 AM REVENUE CYCLE ADMINISTRATOR Unknown Aydee Nam APRN MAINTENANCE MACHINIST LAB - URINE ORDERABLES Performing Organization Address City/State/ZIP Code Phon [place] [address] [phone] [facility] [address] [place] [address] S. E. Lab (no room number, 1st floor of clinic) [place] [address], [facility] [address] [place] [address] S. E. Lab (no room number, 1st floor of clinic) documented in this encounter Visit Diagnoses Diagnosis Preoperative examination - Primary Preoperative examination, unspecified Left elbow pain Pain in joint, upper arm Encounter related to worker's compensati on claim documented in this encounter Additional Health Concerns Assessment Noted Time PHQ-9 Depression Total Score: 22 06/28/2021 7:03 AM CD T documented as of this encounter Care Teams Video Recorder Mechanic Relationship Specialty Start Date End Date Aydee Nam, PCP - General Nurse Practitioner - 05/17/21 WEB CONTENT & SOCIAL MEDIA MANAGER MAINTENANCE MACHINIST Family [address] [place] [phone] Aydee Nam, Assigned PCP 04/28/21 WEB CONTENT & SOCIAL MEDIA MANAGER MAINTENANCE MACHINIST [address] [place] [address] Louisa Hood, Assigned Neuroscience 07/11/21 WEB CONTENT & SOCIAL MEDIA MANAGER MAINTENANCE MACHINIST Provider [address] [place] [phone] Se Levy, Lead Entry Level Installation Technician 08/05/21 05/12/22 Clari Francois Pharmacist Pharmacist 08/06/21 06/07/22 [facility] [address] [place], [place] [phone] [place], Tone Sleep 08/01/21 Angel Turcios, Provider [address] [place], [place] [address] Lesly Celaya MD Assigned Surgical 09/05/21 [address] Provider [place], [place] [phone] Tawana Patel MA [facility] 09/30/21 Worker Ramses Mcpherson Assigned OBGYN 11/07/21 MD Onesimo Provider [address] [place], [place] [phone] Mago Swift, [facility] Lead Entry Level Installation Technician Jewelry Internship - 08/05/21 Clinical documented as of this encounter
--- OUTSIDE RECORDS SUMMARY | 2022-10-21 09:01 | XMS_ITS | Encounter Summary ---
:1980 Author Organization [place] Address [address] [place] [address] Care Team Providers Name Role Phone Aydee Burton HEAD FILTER PRESS TENDER SOLAR APPLICATIONS DEVELOPMENT ENGINEER Primary Care Provider Aydee Burton HEAD FILTER PRESS TENDER SOLAR APPLICATIONS DEVELOPMENT ENGINEER Unavailable [phone] Louisa Hood HEAD FILTER PRESS TENDER SOLAR APPLICATIONS DEVELOPMENT ENGINEER Unavailable [phone] Se Levy SQL SERVER DBA DEVELOPER Unavailable Unavailable Clari Ruiz [facility] Unavailable [phone] Angel Hannah MD Unavailable Lesly Celaya MD Unavailable Tawana Patel MA Unavailable Unavailable Ramses Mcpherson MD Unavailable [phone] Mago Swift DIRECTOR OF DIRECT MARKETING Unavailable Encounter Details Date Type Department Care Team Description 12/24/2021 [facility] for screening for [facility] other viral diseases [address] [place] [address] Social History Tobacco Use [...] How often do you attend yazidi or cheondoism services? Never 08/05/2021 Do you [...] at Date Recorded Female 11/09/2021 7:53 PM JOURNALISM TEACHER COVID-19 Exposure Response Date Recorded In the last month, have you been in contact with No / Unsure 12/24/2021 1:43 PM JOURNALISM TEACHER someone who was confirmed or suspected to have Coronavirus / COVID-19? documented as of this encounter Plan of Treatment Upcoming Encounters Date Type Specialty Care Team Description 10/21/2022 Office Visit Pulmonology Obdulio Barrera MD [address] [address] (Wo rk) 10/25/2022 PRE VISIT ENT Charo Burton MD Previsit [address] [place] [address] (Wo rk) 10/25/2022 Office Visit ENT Charo Burton MD 909 [place], [place] [address] (Wo rk) 10/25/2022 Office Visit ENT Provider, Jeannette Ent Dysphonia Operating Room Rn 10/25/2022 Virtual Visit Pain & Palliative [place] [address] [place], [place] [address] 10/28/2022 Appointment Speech Therapy Anabel Chew, TECHNICAL WRITER AND EDITOR [address] [phone] (Wo rk) 11/17/2022 Appointment Speech Therapy Anabel Chew, TECHNICAL WRITER AND EDITOR [address] [address] (Wo rk) 12/01/2022 Office Visit Pain & [place] [address] [place], [place] [address] (Wo rk) 12/23/2022 Office Visit Neurology Colby Yeung MD [address] [place], [place] [address] (Wo rk) documented as of this encounter Procedures Procedure Name Priority Date/Time Associated Diagnosis Comme nts COVID-19 VIRUS Routine 12/24/2021 1:45 PM Encounter for Result s for this (CORONAVIRUS) BY JOURNALISM TEACHER screening for other proc edure are in PCR viral diseases the results section. documented in this encounter Results Asymptomatic COVID-19 Virus (Coronavirus) by PCR Nose (12/24/2021 1:45 PM JOURNALISM TEACHER) [facility] Method Time Signature SARS CoV2 PCR Negative Negative, 12/25/2021 [facility] Testing sent to 11:04 AM LABORATORY reference lab. JOURNALISM TEACHER Results will be returned via unsolicited result Comment: NEGATIVE: SARS-CoV-2 (COVID-19) RNA not detected, presumed negative. Specimen Anatomical Collection Method Collection Time Receive d Time (Source) Location / / Volume Laterality Swab NASAL STRUCTURE / Non-blood 12/24/2021 1:45 PM 12/14 1:45 Unknown Collection / JOURNALISM TEACHER PM JOURNALISM TEACHER Unknown Narrative [facility] - 12/25/2021 11:04 AM JOURNALISM TEACHER Testing was performed using the amara SARS-CoV-2 assay on the amara [employer] System. This test should be ordered for [...] This urbano t was validated by the [facility] Infectious Diseases Diag nostic Laboratory. This laboratory is certified under the Clinic al Laboratory Improvement Amendments of 1988 (CLIA-88) as qualifie d to perform high and/or moderate complexity laboratory testing. Ramses Mcpherson MD LAB - MICRO GENERAL ORDERABL ES Performing Organization Address City/State/ZIP Code Phon e Number [facility] [place] [address] Diag. Lab 500 [facility], Room D297 [facility] Infectious [place], [place] [phone] Diseases Diagnostic [id number], [facility] Lab (IDDL) 420 [facility], Room D297 documented in this encounter Visit Diagnoses Diagnosis Encounter for screening for other viral diseases documented in this encounter Additional Health Concerns Assessment Noted Time PHQ-9 Depression Total Score: 22 06/28/2021 7:03 AM CD T documented as of this encounter Care Teams Scout Executive Relationship Specialty Start Date End Date Aydee Burton, PCP - General Nurse Practitioner - 05/17/21 HEAD FILTER PRESS TENDER SOLAR APPLICATIONS DEVELOPMENT ENGINEER Family [address] [place], [place] [address] Aydee Burton, Assigned PCP 04/28/21 HEAD FILTER PRESS TENDER SOLAR APPLICATIONS DEVELOPMENT ENGINEER [address] [place], [place] [address] Louisa Hood, Assigned Neuroscience 07/11/21 HEAD FILTER PRESS TENDER SOLAR APPLICATIONS DEVELOPMENT ENGINEER Provider 500 [place], [place] [address] Se Levy, Lead Data Consultant 08/05/21 05/12/22 SQL SERVER DBA DEVELOPERClari Ordonez Pharmacist Pharmacist 08/06/21 06/07/22 [facility] [address] [place], [place] [address] [place], Assigned Sleep 08/01/21 Angel Turcios, Provider [address] [place], [place] [address] Lesly Celaya MD Assigned Surgical 09/05/21 [address] Provider [place], [place] [address] Tawana Patel MA [facility] 09/30/21 Worker Ramses Mcpherson Assigned OBGYN 11/07/21 MD Onesimo Provider [address] [place], [place] [address] Mago Swift, [facility] Lead Data Consultant Equipment Coordinator - 08/05/21 Clinical documented as of this encounter
--- OUTSIDE RECORDS SUMMARY | 2022-10-21 09:01 | XMS_ITS | Encounter Summary ---
:1980 Author Organization [place] Address [address] [place] [address] Care Team Providers Name Role Phone Aydee Burton SILK SCREEN PRINTING RACKER CORPORATION LAWYER Primary Care Provider [phone] Aydee Burton SILK SCREEN PRINTING RACKER CORPORATION LAWYER Unavailable [phone] Louisa Hood SILK SCREEN PRINTING RACKER CORPORATION LAWYER Unavailable [phone] Se Levy AUTOMATIC MOUNTER Unavailable Unavailable Clari Ruiz [facility] Unavailable [phone] Angel Hannah MD Unavailable Lesly Celaya MD Unavailable Tawana Patel MA Unavailable Unavailable Ramses Mcpherson MD Unavailable [phone] Mago Swift BOILER SHOP SUPERVISOR Unavailable Reason for Visit Reason Onset Date Comments Patient Request 12/23/2021 Encounter Details Date Type Department Care Team Description 12/23/2021 Telephone [facility] Ramses Mcpherson , Patient Request [facility] [place] [address] [place] [address] [address] [place] [address] Social History Tobacco Use Types [...] How often do you attend christian or mandaen services? Never 08/05/2021 Do you [...] at Date Recorded Female 11/09/2021 7:53 PM BAND SPLITTER COVID-19 Exposure Response Date Recorded In the last month, have you been in contact with No / Unsure 12/24/2021 1:43 PM BAND SPLITTER someone who was confirmed or suspected to have Coronavirus / COVID-19? documented as of this encounter Miscellaneous Notes Telephone Encounter - Radha Finney RN - 12/23/2021 3:33 PM CST Images from the original note were not included. Ramses Mcpherson MD [facility] Sales Trader Triage 1 minute ago (3:29 PM) CS Called patient. ??Instructed her to remain very careful regarding COVID precautions until surgery. ??Complete quarantine not required. Dr. Mcpherson Message text SPLITTER Telephone Encounter - Nancy José RN - 12/23/2021 2:09 PM CST Pt calling, stating she has her pre-op covid test tomorrow and was advised to quarantine after this until surgery. She is scheduled to work Fri, Sat, Sun & Mon. She would need a note to quarantine for these daysor else have the OK to not quarantine from you. Nancy José RN SPLITTER documented in this encounter Plan of Treatment Upcoming Encounters Date Type Specialty Care Team Description 10/21/2022 Office Visit Pulmonology Obdulio Barrera MD 420 [facility] [address] [place], [place] [phone] (Wo rk) 10/25/2022 PRE VISIT ENT Charo Burton MD Previsit [address] [place] [phone] (Wo rk) 10/25/2022 Office Visit Charo Carter MD [address] [place] [phone] (Wo rk) 10/25/2022 Office Visit ENT Provider, Jeannette Ent Dysphonia Stunt Double 10/25/2022 Virtual Visit Pain & [place]iative [place] [address] [place], [place] [address] 10/28/2022 Appointment Speech Therapy Anabel Chew, ASSOCIATE TEACHER [facility] 516 [facility] [address] [place], [place] [address] (Wo rk) 11/17/2022 Appointment Speech Therapy Anabel Chew, ASSOCIATE TEACHER [facility] 516 [facility] [address] [place] [address] (Wo rk) 12/01/2022 Office Visit Pain [place] [address] [place], [place] [address] (Wo rk) 12/23/2022 Office Visit Neurology Colby Yeung MD [address] [facility] [place] [address] (Wo rk) documented as of this encounter Visit Diagnoses Not on filedocumented in this encounter Additional Health Concerns Assessment Noted Time PHQ-9 Depression Total Score: 22 06/28/2021 7:03 AM CD T documented as of this encounter Care Teams Automatic Edger Relationship Specialty Start Date End Date Aydee Burton, PCP - General Nurse Practitioner - 05/17/21 SILK SCREEN PRINTING RACKER CORPORATION LAWYER Family [address] [place] [address] Aydee Burton, Assigned PCP 04/28/21 SILK SCREEN PRINTING RACKER CORPORATION LAWYER [address] [place], [place] [phone] Louisa Hood, Assigned Neuroscience 07/11/21 SILK SCREEN PRINTING RACKER CORPORATION LAWYER Provider 500 [place], [place] [phone] Se Levy, Lead First Aid Director 08/05/21 05/12/22 Clari Francois Pharmacist Pharmacist 08/06/21 06/07/22 Jocelyn [facility] 2450 [facility] [address] [place] [address] [place], Assigned Sleep 08/01/21 Angel [place]ios, Provider [address] [place] [address] Lesly Celaya MD Assigned Surgical 09/05/21 [address] Provider [place], [place] [address] Tawana Patel [facility] 09/30/21 Worker Ramses Mcpherson Assigned OBGYN 11/07/21 MD Onesimo Provider [address] [place], [place] [address] Mago Swift [facility] Lead First Aid Director [employer] Consultant - 08/05/21 Clinical documented as of this encounter
--- OUTSIDE RECORDS SUMMARY | 2022-10-21 09:01 | XMS_ITS | Encounter Summary ---
:1980 Author Organization [place] Address [address] [place] [address] Care Team Providers Name Role Phone Aydee Burton ACQUISITIONS LOGISTICS ANALYST CONSUMER PRODUCT ADVISOR Primary Care Provider [phone] Aydee Burton ACQUISITIONS LOGISTICS ANALYST CONSUMER PRODUCT ADVISOR Unavailable [phone] Louisa Hood ACQUISITIONS LOGISTICS ANALYST CONSUMER PRODUCT ADVISOR Unavailable [phone] Se Levy OPTHALMIC TECH Unavailable Unavailable Clari Ruiz [facility] Unavailable [phone] Angel Hannah MD Unavailable Lesly Celaya MD Unavailable Tawana Patel MA Unavailable Unavailable Ramses Mcpherson MD Unavailable [phone] Mago Swift SOFTWARE DEVELOPER MID LEVEL Unavailable Reason for Visit Reason Comments Ear Problem right ear pain x 2 days- hav ing pain Encounter Details Date Type Department Care Team Description 12/24/2021 Office Visit [facility] Nasim Milton M D Infective otitis Urgent Care [facility] e [address] externa, right [address] (Primary Dx) [place], [place] [address] Social History Tobacco Use Types Packs/Day [...] at Date Recorded Female 11/09/2021 7:53 PM BRISTLE MACHINE OPERATOR COVID-19 Exposure Response Date Recorded In the last month, have you been in contact with No / Unsure 12/24/2021 1:43 PM BRISTLE MACHINE OPERATOR someone who was confirmed or suspected to have Coronavirus / COVID-19? documented as of this encounter Last Filed Vital Signs Vital Sign Reading Time Taken Comments Blood Pressure 118/66 12/24/2021 1:52 PM BRISTLE MACHINE OPERATOR Pulse 94 12/24/2021 1:52 PM BRISTLE MACHINE OPERATOR Temperature 36.8 ??C (98.2 ??F) 12/24/2021 1:52 PM BRISTLE MACHINE OPERATOR Respiratory Rate 16 12/24/2021 1:52 PM BRISTLE MACHINE OPERATOR Oxygen Saturation 97% 12/24/2021 1:52 PM BRISTLE MACHINE OPERATOR Inhaled Oxygen Concentration - - Weight 92.5 kg (204 lb) 12/24/2021 1:52 PM BRISTLE MACHINE OPERATOR Height 170.2 cm (5' 7) 12/24/2021 1:52 PM BRISTLE MACHINE OPERATOR Body Mass Index 31.95 12/24/2021 1:52 PM BRISTLE MACHINE OPERATOR documented in this encounter Patient Instructions Patient [...] absorb any drainage. ?? You may use tnlo-aca-quqmawg medicines to control pain as directed by [...] Dry your ears with a towel or chairman & chief executive officer after getting wet. Also, use ear plugs [...] confusion ?? Unusual painful or stiff neck [employer] last reviewed this educational content on 06/13/2020 ?? [id number] The [employer]. All rights reserved. This information is not intended as a substitute for professional medical care. Always follow your healthcare professional's instructions. TLE MACHINE OPERATOR documented in this encounter Progress Notes Nasim [...] otitis externa, right (primary encounter diagnosis) Plan: oqzwkpsl-qenieihlw-rvcnvttwboajyr (CORTISPORIN) 3.5-81468-9 otic solution Refrain from using Q-tips in ear canal. Okay for tylenol for discomfort. RX cortisporin otic drops for right otitis externa. Reassurance given that otitis externa infection should not delay upcoming surgery. Follow up with primary provider if no improvement of symptoms in 1 week Nasim Milton MD December 24, 2021 2:28 PM TLE MACHINE OPERATOR documented in this encounter Plan of Treatment Upcoming Encounters Date Type Specialty Care Team Description 10/21/2022 Office Visit Pulmonology HollyObdulio moyer MD 420 [facility] 276 [place], [place] [address] (Wo rk) 10/25/2022 PRE VISIT ENT Charo Burton MD Previsit [address] [place] [address] (Wo rk) 10/25/2022 Office Visit Charo Carter MD [address] [place] [address] (Wo rk) 10/25/2022 Office Visit ENT Provider, Ent Dysphonia Director Packaging 10/25/2022 Virtual Visit Pain & [place]iative [place] [address] [place], [place] [address] 10/28/2022 Appointment Speech Therapy Anabel Chew, CELINE [address] [place] [address] (Wo rk) 11/17/2022 Appointment Speech Therapy Anabel Chew, LAMP STACK DEVELOPER [facility] 516 [facility] 396 [place], [place] [phone] (Wo rk) 12/01/2022 Office Visit Pain & [place] [address] [address] [place], [place] [address] (Wo rk) 12/23/2022 Office Visit Neurology Colby Yeung MD [address] [facility] [place] [address] (Wo rk) documented as of this encounter Visit Diagnoses Diagnosis Infective otitis externa, right - Primar y documented in this encounter Additional Health Concerns Assessment Noted Time PHQ-9 Depression Total Score: 06/28/2021 7:03 AM CD T documented as of this encounter Care Teams Railroad Watchman Relationship Specialty Start Date End Date Aydee Burton, PCP - General Nurse Practitioner - 05/17/21 ACQUISITIONS LOGISTICS ANALYST CONSUMER PRODUCT ADVISOR Family [address] [place], [place] [phone] Aydee Burton, Assigned PCP 04/28/21 ACQUISITIONS LOGISTICS ANALYST CONSUMER PRODUCT ADVISOR [address] [place], [place] [phone] Louisa Hood, Assigned Neuroscience 07/11/21 ACQUISITIONS LOGISTICS ANALYST CONSUMER PRODUCT ADVISOR Provider [address] [place], [place] [phone] Se Levy, Lead Building Services Engineer 08/05/21 05/12/22 Clari Francois Pharmacist Pharmacist 08/06/21 06/07/22 Jocelyn [facility] [address] [facility] [address] [place] [address] [place], Assigned Sleep 08/01/21 Angel Turcios, Provider [address] [place] [address] Lesly Celaya MD Assigned Surgical 09/05/21 [address] Provider [place], [place] [phone] Tawana Patel MA [facility] 09/30/21 Worker Ramses Mcpherson Assigned OBGYN 11/07/21 MD Onesimo Provider [address] [place], [place] [phone] Mago Swift, [facility] Lead Building Services Engineer Insurance Agency Sales Manager - 08/05/21 Clinical documented as of this encounter
--- OUTSIDE RECORDS SUMMARY | 2022-10-21 09:01 | XMS_ITS | Encounter Summary ---
:1980 Author Organization [place] Address [address] [place] [address] Care Team Providers Name Role Phone Aydee Burton VETERINARY PATHOLOGIST CORPORATE COORDINATOR Primary Care Provider Aydee Burton VETERINARY PATHOLOGIST CORPORATE COORDINATOR Unavailable [phone] Louisa Hood VETERINARY PATHOLOGIST CORPORATE COORDINATOR Unavailable [phone] Se Levy HEAD START TEACHER Unavailable Unavailable Clari Ruiz [facility] Unavailable [phone] Angel Hannah MD Unavailable Lesly Celaya MD Unavailable Tawana Patel MA Unavailable Unavailable Ramses Mcpherson MD Unavailable Mago Swift FINANCIAL REPORTING DIRECTOR Unavailable Encounter Details Date Type Department [...] How often do you attend orthodox or mandaeism services? Never 08/05/2021 Do you [...] at Date Recorded Female 11/09/2021 7:53 PM TABLET MACHINE OPERATOR COVID-19 Exposure Response Date Recorded In the last month, have you been in contact with No / Unsure 12/10/2021 8:26 AM TABLET MACHINE OPERATOR someone who was confirmed or suspected to have Coronavirus / COVID-19? documented as of this encounter Plan of Treatment Upcoming Encounters Date Type Specialty Care Team Description 10/21/2022 Office Visit Pulmonology Obdulio Barrera MD [address] [place] [address] (Wo rk) 10/25/2022 PRE VISIT Charo Carter MD Previsit [address] [place] [address] (Wo rk) 10/25/2022 Office Visit Charo Carter MD [address] [place] [address] (Wo rk) 10/25/2022 Office Visit ENT Provider, Jeannette Ent Dysphonia Mold Press Operator 10/25/2022 Virtual Visit Pain & [place] [address] [place], [place] [address] 10/28/2022 Appointment Speech Therapy Anabel Chew, HIGHWAY PAINTER [address] [address] (Wo rk) 11/17/2022 Appointment Speech Therapy Anabel Chew, HIGHWAY PAINTER [address] [address] (Wo rk) 12/01/2022 Office Visit Pain & [place] [address] [place], [place] [address] (Wo rk) 12/23/2022 Office Visit Neurology Colby Yeung MD [address] [place] [address] (Wo rk) documented as of this encounter Visit Diagnoses Not on filedocumented in this encounter Additional Health Concerns Assessment Noted Time PHQ-9 Depression Total Score: 22 06/28/2021 7:03 AM CD T documented as of this encounter Care Teams Hog Tender Relationship Specialty Start Date End Date Aydee Burton, PCP - General Nurse Practitioner - 05/17/21 VETERINARY PATHOLOGIST CORPORATE COORDINATOR Family [address] [place], [place] [phone] Aydee Burton, Assigned PCP 04/28/21 VETERINARY PATHOLOGIST CORPORATE COORDINATOR [address] [place], [place] [phone] Louisa Hood, Assigned Neuroscience 07/11/21 VETERINARY PATHOLOGIST CORPORATE COORDINATOR Provider [address] [place] [address] [place] [address] Se Levy, Lead Hospice Manager 08/05/21 05/12/22 Clari Francois Pharmacist Pharmacist 08/06/21 06/07/22 Jocelyn, [facility] [address] [place] [address] [place], Assigned Sleep 08/01/21 Angel Turcios, Provider [address] [place], [place] [address] Lesly Celaya MD Assigned Surgical 09/05/21 [address] Provider [place], [place] [address] Tawana Patel MA [facility] Health 09/30/21 Worker Ramses Mcpherson Assigned OBGYN 11/07/21 MD Onesimo Provider [address] [place], [place] [phone] Mago Swift [facility] Lead Hospice Manager Kettle Hand - 08/05/21 Clinical documented as of this encounter
--- OUTSIDE RECORDS SUMMARY | 2022-10-21 09:02 | XMS_ITS | Encounter Summary ---
:1980 Author Organization [place] Address [address] [place] [address] Care Team Providers Name Role Phone Aydee Burton BEEF FARMER BIOCHEMISTRY TECHNOLOGIST Primary Care Provider Aydee Burton BEEF FARMER BIOCHEMISTRY TECHNOLOGIST Unavailable [phone] Louisa Hood BEEF FARMER BIOCHEMISTRY TECHNOLOGIST Unavailable [phone] Se Levy ICT HELP DESK TECHNICIAN Unavailable Unavailable Clari Ruiz [facility] Unavailable [phone] Angel Hannah MD Unavailable Lesly Cleaya MD Unavailable Tawana Patel MA Unavailable Unavailable Ramses Mcpherson MD Unavailable [phone] Mago Swift CASEWORKER PROTECTIVE SERVICES Unavailable Encounter Details Date Type Department [...] How often do you attend mormonism or sikhism services? 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/2021 7:53 PM SOFTWARE QUALITY ASSURANCE ENGINEER COVID-19 Exposure Response Date Recorded In the last month, have you been in contact with No / Unsure 12/01/2021 8:05 AM SOFTWARE QUALITY ASSURANCE ENGINEER someone who was confirmed or suspected to have Coronavirus / COVID-19? documented as of this encounter Plan of Treatment Upcoming Encounters Date Type Specialty Care Team Description 10/21/2022 Office Visit Pulmonology Obdulio Barrera MD [address] [place] [address] (Wo rk) 10/25/2022 PRE VISIT Charo Carter MD Previsit [address] [place] [address] (Wo rk) 10/25/2022 Office Visit Charo Carter MD [address] [place] [address] (Wo rk) 10/25/2022 Office Visit ENT Provider, Jeannette Ent Dysphonia It Network Administrator 10/25/2022 Virtual Visit Pain & Palliative [place] [address] [place], [place] [address] 10/28/2022 Appointment Speech Therapy Anabel Chew, PHOTOCOPYING MACHINE OPERATOR [address] [address] (Wo rk) 11/17/2022 Appointment Speech Therapy Anabel Chew, PHOTOCOPYING MACHINE OPERATOR [address] [address] (Wo rk) 12/01/2022 Office Visit Pain & [place] [address] [place], [place] [address] (Wo rk) 12/23/2022 Office Visit Neurology Colby Yeung MD [address] [place] [address] (Wo rk) documented as of this encounter Visit Diagnoses Not on filedocumented in this encounter Additional Health Concerns Assessment Noted Time PHQ-9 Depression Total Score: 22 06/28/2021 7:03 AM CD T documented as of this encounter Care Teams Immigration Case Worker Relationship Specialty Start Date End Date Aydee Burton, PCP - General Nurse Practitioner - 05/17/21 BEEF FARMER BIOCHEMISTRY TECHNOLOGIST Family [address] [place] [employer], [place] [phone] Aydee Burton, Assigned PCP 04/28/21 BEEF FARMER BIOCHEMISTRY TECHNOLOGIST [address] [place] [employer], [place] [phone] Louisa Hood, Assigned Neuroscience 07/11/21 BEEF FARMER BIOCHEMISTRY TECHNOLOGIST Provider [address] [place] [address] [place] [address] Se Levy, Lead Ceramic Chemist 08/05/21 05/12/22 Clari Francois Pharmacist Pharmacist 08/06/21 06/07/22 Jocelyn, [facility] [address] [place] [address] [place], Assigned Sleep 08/01/21 Angel Turcios, Provider [address] [place], [place] [address] Lesly Celaya MD Assigned Surgical 09/05/21 [address] Provider [place], [place] [address] Tawana Patel MA Counts Include [address] [facility] Health 09/30/21 Worker Ramses Mcpherson Assigned OBGYN 11/07/21 MD Onesimo Provider [address] [place], [place] [phone] Mgao Swift [facility] Lead Ceramic Chemist Hotel Service Manager - 08/05/21 Clinical documented as of this encounter
--- OUTSIDE RECORDS SUMMARY | 2022-10-21 09:02 | XMS_ITS | Encounter Summary ---
:1980 Author Organization [facility] Address [address] [facility] [place] [address] Care Team Providers Name Role Phone Aydee Burton NETWORK SOLUTIONS ARCHITECT PLATER SUPERVISOR Primary Care Provider [phone] Aydee Burton NETWORK SOLUTIONS ARCHITECT PLATER SUPERVISOR Unavailable [phone] Louisa Hood NETWORK SOLUTIONS ARCHITECT PLATER SUPERVISOR Unavailable [phone] Se Levy EMANATIONS ANALYSIS TECHNICIAN Unavailable Unavailable Clari Ruiz [facility] Unavailable [phone] Angel Hannah MD Unavailable Lesly Celaya MD Unavailable Tawana Patel MA Unavailable Unavailable Ramses Mcpherson MD Unavailable [phone] Mago Swift VOICE INTERCEPT TECHNICIAN Unavailable Reason for Referral Consultation (Routine: Next available opening) - Closed Specialty Diagnoses / Procedures Referred By Contact Refer red To Contact Diagnoses Bilateral occipital neuralgia Upper back pain Lucas Anaya [facility] MD Romel [address] [place] [address] AYNY MARSHALL [place] [phone] Referral ID Status Reason Start Date Expiration Date Visits Requ ested Visits Authorized [id number] Closed 11/10/2021 11/10/2022 1 1 Scheduling Instructions Interventional Evaluation: Interventional Injection Only - Type of Injection: trigger point injections and bilateral occipital nerve blocks Radiolo gy? No ain Consult (Routine: Next available opening) - Closed Specialty Diagnoses / Procedures Referred By Contact Refer red To Contact Diagnoses Bilateral occipital neuralgia Upper back pain Chronic tension-type headache, not intractable Lucas Anaya [facility] MD Romel SERVICES [address] [facility] [place] [address] [place] [address] Phone: Referral ID Status Reason Start Date Expiration Date Visits Requ ested Visits Authorized [id number] Closed 11/10/2021 11/10/2022 1 1 Scheduling Instructions Pain Management Provider Services: Ph.D. Evaluation: headaches, chronic upp er back/neck pain, recent elbow fracture/surgery ING STATION ATTENDANT Reason for Visit Reason Comments Pain Consultation (Routine) - Closed Specialty Diagnoses / Procedures Referred By Contact Refer red To Contact Pain Medicine Diagnoses Bilateral occipital neuralgia Aydee Burton M [facility] PAIN NETWORK SOLUTIONS ARCHITECT PLATER SUPERVISOR [facility] [place] [address] [place] [address] [place] [address] [place] [address] Phone: Fax: Referral ID Status Reason Start Date Expiration Date Visits Requ ested Visits Authorized [id number] Closed 09/15/2021 09/15/2022 1 1 Encounter Details Date Type Department Care Team Description 11/10/2021 Office Visit [facility] Lucas Anaya teral occipital neuralgia (Primary Dx); Pain Management MD Romel Upper back pain; [place] [id number] [place] [address] Chronic tension-type headache, not intra ctable [address] [facility] [place] [address] [address] [place] [address] [phone] Social History Tobacco Use Types Packs/Day Years [...] How often do you attend nondenominational or buddhist services? Never 08/05/2021 Do you [...] at Date Recorded Female 11/09/2021 7:53 PM FILLING STATION ATTENDANT COVID-19 Exposure Response Date Recorded In the last month, have you been in contact with No / Unsure 11/10/2021 8:59 AM FILLING STATION ATTENDANT someone who was confirmed or suspected to have Coronavirus / COVID-19? documented as of this encounter Last Filed Vital Signs Vital Sign Reading Time Taken Comments Blood Pressure 120/80 11/10/2021 9:02 AM FILLING STATION ATTENDANT Pulse 110 11/10/2021 9:02 AM FILLING STATION ATTENDANT Temperature - - Respiratory Rate - - Oxygen Saturation 98% 11/10/2021 9:02 AM FILLING STATION ATTENDANT Inhaled Oxygen Concentration - - Weight - - Height - - Body Mass Index - - documented in this encounter Patient Instructions Patient InstructionsViridiana Juarez MA - 11/10/2021 9:00 AM CST 1. [...] schedule. 3. Try the following yoga videos: [email or web address] Clinic Number: [phone] ??? Call with any questions about your care and for scheduling assistance. ??? Calls are returned Monday through Monday between 8 AM and 4:30 PM. We usually get back to you within 2 business days depending on the issue/request. If we are prescribing your medications: ?? For opioid medication refills, call the clinic or send a Neura message 7 days in advance. Please include: ?? Name of requested medication ?? Name of the pharmacy. ?? For non-opioid medications, call your pharmacy directly to request a refill. Please allow 3-4 days to be processed. ?? Per [place] State Law: ?? All controlled substance prescriptions [...] may lead to dismissal from the clinic. ING STATION ATTENDANT documented in this encounter Progress Notes Lucas Anaya MD - 11/10/2021 9:00 AM CST [facility] Consultation Date of visit: 11/09/2021 Assessment: Marta Hill is a 41 year old with past medical history including: PTSD, Anxiety, Depression, who presents for evaluation and treatment of the following chronic pain conditions: 1. Chronic headaches: Marta has had a long standing history of chronic neck pain and headaches and has been diagnosed with occipital neuralgia at [facility] years ago. Currently they are experiencing daily [...] Follow up: 1 month after injections. Lucas Anaya [facility] Pain Management Reason for consultation: Marta Hill is a 41 year old female who is seen in consultation today at the request of her primary care physician, Aydee Burton. Consultation and Evaluation for: chronic pain Review of [place] Prescription Monitoring Program (LESSON INSTRUCTOR): Today I have also reviewed the patient's history of controlled substance use, as provided by [place] licensed pharmacies and prescriber dispensers. Review of Pain Questionnaire: Please see the [facility] Pain Management [place] health questionnaire, which the patient completed and reviewed with me in detail. Review of Electronic Chart: Today I have also reviewed available medical information in the patient's medical record at [facility] ([facility]), including relevant provider notes, laboratory work, and [...] their head. [facility]ipital neuralgia. They've also have a long standing history of upper back and neck pain which is worsened with repeated activity. This has been going on for years and started worsening about a year ago. These symptoms have worsened since their left upper extremity injury. 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 If they're at the [employer], then their arm pain starts toflare-up. Onset: [...] years ago - made headaches worse - [facility] 6. Alternative Therapies: Chiropractic: hasn't tried Acupuncture: hasn't tried Diagnostic tests: CERVICAL SPINE THREE VIEWS 05/17/2021 8:12 AM ?? HISTORY: Neck pain. ?? COMPARISON: None. ?? IMPRESSION: There is some pjoj-[id number] cervical kyphosis centered on the C4-C5 level [...] bilateral legs, arms and trunk; Surgeon: Lesly Cleaya MD; Location: [facility] OR ??? GENITOURINARY SURGERY Tubal ligation and ablasion ??? COAGULANT DIPPER SURGERY not sure tubal ligation and ablasion [...] Rash Social History: Home situation: [place] Occupation/Schooling: works at [employer] Tobacco use: denies Drug use: denies Alcohol [...] professionals Time spent documenting clinical information in [facility] Lucas Anaya DO [facility] ING STATION ATTENDANT documented in this encounter Nursing Notes Viridiana Juarez MA - 11/10/2021 9:00 AM CST PEG Score 11/10/2021 PEG Total Score 7 ISMA Bañuelos [facility] ING STATION ATTENDANT documented in this encounter Plan of Treatment Upcoming Encounters Date Type Specialty Care Team Description 10/21/2022 Office Visit Pulmonology Obdulio Barrera MD [address] [address] (Wo rk) 10/25/2022 PRE VISIT ENT Charo Burton MD Previsit [address] [place], [place] [phone] (Wo rk) 10/25/2022 Office Visit ENT Charo Burton MD [address] [place], [place] [address] (Wo rk) 10/25/2022 Office Visit ENT Provider, Ent Dysphonia Plumber And Tinner 10/25/2022 Virtual Visit Pain & [place] [address] [place], [place] [address] 10/28/2022 Appointment Speech Therapy Anabel Chew, MAILER [address] [phone] (Wo rk) 11/17/2022 Appointment Speech Therapy Anabel Chew, MAILER [address] [phone] (Wo rk) 12/01/2022 Office Visit Pain & [place] [address] [place], [place] [address] (Wo rk) 12/23/2022 Office Visit Neurology Colby Yeung MD [address] [place], [place] [address] (Wo rk) Scheduled Referrals Name Type Priority [...] documented as of this encounter Care Teams Tool Hardener Relationship Specialty Start Date End Date Aydee Burton, PCP - General Nurse Practitioner - 05/17/21 NETWORK SOLUTIONS ARCHITECT PLATER SUPERVISOR Family [address] [place] [address] Aydee Burton, Assigned PCP 04/28/21 NETWORK SOLUTIONS ARCHITECT PLATER SUPERVISOR [address] [place] [address] [phone] Louisa Hood, Assigned Neuroscience 07/11/21 NETWORK SOLUTIONS ARCHITECT PLATER SUPERVISOR Provider [address] [place], [place] [address] Se Levy, Lead Recooperer 08/05/21 05/12/22 EMANATIONS ANALYSIS TECHNICIAN Clari Ruiz Pharmacist Pharmacist 08/06/21 06/07/22 [facility] [address] [place], [place] [address] [place], Assigned Sleep 08/01/21 Angel Turcios, Provider [address] [place], [place] [address] Lesly Celaya MD Assigned Surgical 09/05/21 [address] Provider [place], [place] [phone] Tawana Patel MA [facility] 09/30/21 Worker Ramses Mcpherson Assigned OBGYN 11/07/21 MD Onesimo Provider [address] [place] [address] Mago Swift VOICE INTERCEPT TECHNICIAN Lead Recooperer Pantograph Ii Engraver - 08/05/21 Clinical documented as of this encounter
--- OUTSIDE RECORDS SUMMARY | 2022-10-21 09:02 | XMS_ITS | Encounter Summary ---
:1980 Author Organization [facility] Address [address] [place] [address] Care Team Providers Name Role Phone Aydee Burton TUBE REBUILDER GRINDER BRAKE LINING Primary Care Provider Aydee Burton TUBE REBUILDER GRINDER BRAKE LINING Unavailable [phone] Louisa Hood TUBE REBUILDER GRINDER BRAKE LINING Unavailable [phone] Se Levy FACILITY MECHANIC Unavailable Unavailable Clari Ruiz [facility] Unavailable [phone] Angel Hannah MD Unavailable Lesly Celaya MD Unavailable Tawana Patel MA Unavailable Unavailable Ramses Mcpherson MD Unavailable [phone] Mago Swift RN CLINICAL COORDINATOR Unavailable Reason for Visit Reason Onset Date Comments Procedure 11/11/2021 trigger point inject ions and bilateral occipital nerve blocks Encounter Details Date Type Department Care Team Description 11/11/2021 [facility] Lucas Anaya (trigger Pain Management MD Romel point injections and [place] [address] [address] bilateral occipital [address] [place] [address] nerve blocks) [address] [place] [address] [phone] Social History Tobacco Use Types Packs/Day Years [...] How often do you attend tenriism or methodist services? Never 08/05/2021 Do you [...] at Date Recorded Female 11/09/2021 7:53 PM DRAWING HAND COVID-19 Exposure Response Date Recorded In the last month, have you been in contact with No / Unsure 11/10/2021 8:59 AM DRAWING HAND someone who was confirmed or suspected to [...] that and leave out steroid. Location: ??? [place]: ??? Only schedule on Wednesdays (ultrasound machine NOT available Monday and ) ??? If need to double book, use the 3:30 pm slot ??? [place]: Ultrasound appointments NOT available at this time ??? Julio: ??? [place]: Please send to spool fixer after scheduling to verify U/S availability Does [...] about the timing, send to AMINAH Ortega Director Of Business Continuity [facility] Pain Management ING HAND documented in this encounter Plan of Treatment Upcoming Encounters Date Type Specialty Care Team Description 10/21/2022 Office Visit Pulmonology Obdulio Barrera MD [address] [place] [phone] (Wo rk) 10/25/2022 PRE VISIT ENT Charo Burton MD Previsit [address] [place] [address] [phone] (Wo rk) 10/25/2022 Office Visit ENT Charo Burton MD [address] [place] [phone] (Wo rk) 10/25/2022 Office Visit ENT Provider, Ent Dysphonia Support Specialist 10/25/2022 Virtual Visit Pain & Palliative [place] [address] [place], [place] [address] 10/28/2022 Appointment Speech Therapy Anabel Chew, RADIOLOGY CLERK [address] [address] (Wo rk) 11/17/2022 Appointment Speech Therapy Anabel Chew, RADIOLOGY CLERK [address] [address] (Wo rk) 12/01/2022 Office Visit Pain & [place] [address] [place], [place] [address] (Wo rk) 12/23/2022 Office Visit Neurology Colby Yeung MD [address] [place] [phone] (Wo rk) documented as of this encounter Visit Diagnoses Not on filedocumented in this encounter Additional Health Concerns Assessment Noted Time PHQ-9 Depression Total Score: 22 06/28/2021 7:03 AM CD T documented as of this encounter Care Teams Breakdown Person Relationship Specialty Start Date End Date Aydee Burton, PCP - General Nurse Practitioner - 05/17/21 TUBE REBUILDER GRINDER BRAKE LINING Family [address] [place] [phone] Aydee Burton, Assigned PCP 04/28/21 TUBE REBUILDER GRINDER BRAKE LINING [address] [place], [place] [address] [place] Louisa Recinos, Assigned Neuroscience 07/11/21 TUBE REBUILDER GRINDER BRAKE LINING Provider [address] [place], [place] [address] Se Levy, Lead Special Weapons Unit Officer 08/05/21 05/12/22 [facility] Clari Ruiz Pharmacist Pharmacist 08/06/21 06/07/22 [facility] [address] [place], [place] [phone] [place], Assigned Sleep 08/01/21 Angel Turcios, Provider [address] [place], [place] [address] Lesly Celaya MD Assigned Surgical 09/05/21 [address] Provider [place], [place] [phone] Tawana Patel MA [facility] Health 09/30/21 Worker Ramses Mcpherson Assigned OBGYN 11/07/21 MD Onesimo Provider [address] [place], [place] [phone] Mago Swift, [facility] Lead Special Weapons Unit Officer Marine Habitat Resource Specialist - 08/05/21 Clinical documented as of this encounter
--- OUTSIDE RECORDS SUMMARY | 2022-10-21 09:02 | XMS_ITS | Encounter Summary ---
:1980 Author Organization [place] Address [address] [place] [address] Care Team Providers Name Role Phone Aydee Burton APRN PRECISION INSTRUMENT MAKER Primary Care Provider Aydee Burton APRN PRECISION INSTRUMENT MAKER Unavailable [phone] Louisa Hood TOPOGRAPHICAL DRAFTER PRECISION INSTRUMENT MAKER Unavailable [phone] Se Levy LOCK EXPERT Unavailable Unavailable Clari Ruiz [facility] Unavailable [phone] Angel Hannah MD Unavailable Lesly Celaya MD Unavailable Tawana Patel MA Unavailable Unavailable Ramses Mcpherson MD Unavailable [phone] Mago Swift PLYWOOD FACTORY WORKER Unavailable Reason for Referral CV Cardio consult (Routine: Next available opening) - Referral NOT Required Specialty Diagnoses / Procedures Referred By Contact Refer red To Contact Cardiovascular Disease Diagnoses Shortness of breath Feeling of chest tightness Aydee Burton [facility] Care ELADIO Mendez PRECISION INSTRUMENT MAKER [address] [place] [address] [place] [address] Phone: Fax: Referral ID Status Reason Start Date Expiration Date Visits V isits Requested Authorized [id number] Referral NOT 11/10/2021 11/10/2022 1 1 Required [facility] Encounter Details Date Type Department Care Team Description 11/10/2021 Orders Only [facility] Aydee Burton Shortness of breath (Primary Dx); Clinic [place] ELADIO Mendez CNP Feeling of chest tightness [facility] [address] [address] [phone] Social History Tobacco Use Types Packs/Day Years [...] How often do you attend restorationist or episcopalian services? Never 08/05/2021 Do you [...] at Date Recorded Female 11/09/2021 7:53 PM APPRAISER REAL ESTATE COVID-19 Exposure Response Date Recorded In the last month, have you been in contact with No / Unsure 11/04/2021 11:14 AM APPRAISER REAL ESTATE someone who was confirmed or suspected to have Coronavirus / COVID-19? documented as of this encounter Plan of Treatment Upcoming Encounters Date Type Specialty Care Team Description 10/21/2022 Office Visit Pulmonology Obdulio Barrera MD [address] [place] [address] (Wo rk) 10/25/2022 PRE VISIT ENT Charo Burton MD Previsit [address] [place] [phone] (Wo rk) 10/25/2022 Office Visit ENT Charo Burton MD [address] [place] [phone] (Wo rk) 10/25/2022 Office Visit ENT Provider, Jeannette Ent Dysphonia Sample Clerk 10/25/2022 Virtual Visit Pain & [place]iative [place] [address] [place], [place] [address] 10/28/2022 Appointment Speech Therapy Anabel Chew, EMERGENCY VETERINARY ASSISTANT [address] [address] (Wo rk) 11/17/2022 Appointment Speech Therapy Anabel Chew, EMERGENCY VETERINARY ASSISTANT [address] [address]33115 (Wo rk) 12/01/2022 Office Visit Pain & [place] [address] [place], [place] [address] (Wo rk) 12/23/2022 Office Visit Neurology Colby Yeung MD [address] [place] [address] (Wo rk) Scheduled Orders Name Type Priority Associated Diagnoses Order S chedule Pulmonary Function Test PFT Routine Shortnes s of breath Expected: 11/17/2021 Feeling of chest (Approximat e), tightness Expires: 2021 Scheduled Referrals Name Type Priority Associated Diagnoses Order S chedule Adult Cardiology Referral Routine: Next Shortness of br eath Expected: Eval Referral available opening Feeling of chest 11/10 tightness (Approximate), Expires: 11/10/2022 documented as of this encounter Results General PFT Lab (Please always keep checked) (11/16/2021 3:32 PM APPR[facility] REAL ESTATE) P athologist Signature FVC-Pred 3.93 L [facility] FVC-Pre 3.85 L [facility] FVC-%Pred-Pre 97 % [facility] FEV1-Pre 3.29 L [facility] FEV1-%Pred-Pre 102 % [facility] [id number] 82 % [facility] [id number] 86 % [facility] FEFMax-Pred 7.25 L/sec [facility] FEFMax-Pre 8.70 L/sec [facility] FEFMax-%Pred-Pr 119 % [facility] e [id number] 3.35 L/sec [facility] [id number] 3.84 L/sec [facility] FHN3432-%Pred-P 114 % [facility] re ExpTime-Pre 7.82 sec [facility] FIFMax-Pre 5.59 L/sec [facility] VC-Pred 3.93 L [facility] VC-Pre 3.95 L [facility] VC-%Pred-Pre 100 % [facility] IC-Pred 3.11 L [facility] IC-Pre 2.50 L [facility] IC-%Pred-Pre 80 % [facility] ERV-Pred 0.83 L [facility] ERV-Pre 1.45 L [facility] ERV-%Pred-Pre 175 % [facility] [id number]-Vmbc 84 % [facility] [id number] 85 % [facility] FRCPleth-Pred 2.78 L [...] [facility] VA-%Pred-Pre 89 % [facility] [id number] 82 % [facility] [id number] 83 % [facility] Specimen (Source) Anatomical Collection Method Collection Time Re ceived Time Location / / Volume Laterality 11/16/2021 3:32 PM APPR[facility] Narrative [facility] - 11/23/2021 5:06 PM APPR[facility] The FVC, FEV1, FEV1/FVC ratio and FNO80-03% are within normal limits. ??The inspiratory and expiratory flow rates are within normal limits. ??Lung volumes are within normal limits. ??The diffusing capac ity is normal. ??However, the diffusing capacity was not corrected for the patient's hemoglobin. IMPRESSION: Normal spirometry, diffusing capacity an d lung volumes. ?This interpretation has been electro nically signed: ??RICH COLE 11/23/2021 ??05:01:17 PM? Aydee Burton TOPOGRAPHICAL DRAFTER PRECISION INSTRUMENT MAKER PFT ORDERABLES Performing Organization Address City/State/ZIP Code Phon e Number [facility] documented in this encounter Visit Diagnoses Diagnosis Shortness of breath - Primary Feeling of chest tightness Other chest pain Shortness of breath Feeling of chest tightness Other chest pain documented in this encounter Additional Health Concerns Assessment Noted Time PHQ-9 Depression Total Score: 06/28/2021 7:03 AM CD T documented as of this encounter Care Teams Archives Technician Relationship Specialty Start Date End Date Aydee Burton, PCP - General Nurse Practitioner - 05/17/21 TOPOGRAPHICAL DRAFTER PRECISION INSTRUMENT MAKER Family [address] [place] [address] Aydee Burton, Assigned PCP 04/28/21 TOPOGRAPHICAL DRAFTER PRECISION INSTRUMENT MAKER [address] [place], [place] [phone] Louisa Hood, Assigned Neuroscience 07/11/21 TOPOGRAPHICAL DRAFTER PRECISION INSTRUMENT MAKER Provider [address] [place], [place] [phone] Se Levy, Lead Slope Hoist Operator 08/05/21 05/12/22 Clari Francois Pharmacist Pharmacist 08/06/21 06/07/22 Jocelyn [facility] [address] [place], [place] [address] [place], Tone Sleep 08/01/21 Angel Turcios, Provider [address] [place], [place] [address] Lesly Celaya MD Assigned Surgical 09/05/21 [address] [place] [place] [address] Tawana Patel MA [facility] 09/30/21 Worker Ramses Mcpherson Assigned OBGYN 11/07/21 MD Onesimo Provider [address] [place] [address] Mago Swift, [facility] Lead Slope Hoist Operator Boilermaker Pipe Fitter - 08/05/21 Clinical documented as of this encounter
--- OUTSIDE RECORDS SUMMARY | 2022-10-21 09:02 | XMS_ITS | Encounter Summary ---
:1980 Author Organization [facility] Address [address] [place] [address] Care Team Providers Name Role Phone Aydee Burton HOTEL ROOM ATTENDANT FROZEN FOODS MANAGER Primary Care Provider [phone] Aydee Burton HOTEL ROOM ATTENDANT FROZEN FOODS MANAGER Unavailable [phone] Louisa Hood HOTEL ROOM ATTENDANT FROZEN FOODS MANAGER Unavailable [phone] Se Levy DIRECTOR OF [facility] Unavailable Unavailable Clari Ruiz [facility] Unavailable [phone] Angel Hannah MD Unavailable Lesly Celaya MD Unavailable Tawana Patel MA Unavailable Unavailable Ramses Mcpherson MD Unavailable [phone] Mago Swift FRAMEMAN Unavailable Reason for Visit Reason Onset Date Comments Forms 11/10/2021 Faxed [facility] Forms Encounter Details Date Type Department Care Team Description 11/10/2021 [facility] Lucas Anaya Form s (Faxed [facility] Pain Management MD Romel Forms) [address] [address] [place] [address] [address] [place] [address] [phone] Social History Tobacco Use Types Packs/Day Years [...] at Date Recorded Female 11/09/2021 7:53 PM SECRETARY BOARD OF COMMISSIONERS COVID-19 Exposure Response Date Recorded In the last month, have you been in contact with No / Unsure 11/10/2021 8:59 AM SECRETARY BOARD OF COMMISSIONERS someone who was confirmed or suspected to have Coronavirus / COVID-19? documented as of this encounter Miscellaneous Notes Telephone Encounter - Viridiana Juarez MA - 11/10/2021 12:53 PM CST Faxed [facility] forms, [facility], [place], [facility], Right Fax confirmed. ROIs placed into scanning. Viridiana Juarez MA [facility] ETARY BOARD OF COMMISSIONERS documented in this encounter Plan of Treatment Upcoming Encounters Date Type Specialty Care Team Description 10/21/2022 Office Visit Pulmonology Obdulio Barrera MD [address] [phone] (Wo rk) 10/25/2022 PRE VISIT ENT Charo Burton MD Previsit [address] [place] [address] [phone] (Wo rk) 10/25/2022 Office Visit ENT Charo Burton MD [address] [place] [address] [phone] (Wo rk) 10/25/2022 Office Visit ENT Provider, Ent Dysphonia Nurses Superintendent 10/25/2022 Virtual Visit Pain & [place] [address] [place], [place] [address] 10/28/2022 Appointment Speech Therapy Anabel Chew, CNC MACHINE PROGRAMMER [address] [phone] (Wo rk) 11/17/2022 Appointment Speech Therapy Anabel Chew, CNC MACHINE PROGRAMMER [address] [address]015 (Wo rk) 12/01/2022 Office Visit Pain & [place] [address] [place], [place] [address] (Wo rk) 12/23/2022 Office Visit Neurology Colby Yeung MD [address] [place] [address] (Wo rk) documented as of this encounter Visit Diagnoses Not on filedocumented in this encounter Additional Health Concerns Assessment Noted Time PHQ-9 Depression Total Score: 22 06/28/2021 7:03 AM CD T documented as of this encounter Care Teams Winter Sports Manager Relationship Specialty Start Date End Date Aydee Burton, PCP - General Nurse Practitioner - 05/17/21 HOTEL ROOM ATTENDANT FROZEN FOODS MANAGER Family [address] [place] [address] Aydee Burton, Assigned PCP 04/28/21 HOTEL ROOM ATTENDANT FROZEN FOODS MANAGER [address] [place] [address] Louisa Hood, Assigned Neuroscience 07/11/21 HOTEL ROOM ATTENDANT FROZEN FOODS MANAGER Provider [address] [place], [place] [phone] Se Levy, Lead Sole Stitcher Hand 08/05/21 05/12/22 Clari Francois Pharmacist Pharmacist 08/06/21 06/07/22 Jocelyn, [facility] [address] [place] [address] [place], Assigned Sleep 08/01/21 Angel Turcios, Provider [address] [place], [place] [phone] Lesly Celaya MD Assigned Surgical 09/05/21 [address] Provider [place], [place] [phone] Tawana Patel MA [facility] 09/30/21 Worker Ramses Mcpherson Assigned OBGYN 11/07/21 MD Onesimo Provider [address] [place] [address] [facility] Lead Sole Stitcher Hand Shiatsu Therapist - 08/05/21 Clinical documented as of this encounter
--- OUTSIDE RECORDS SUMMARY | 2022-10-21 09:02 | XMS_ITS | Encounter Summary ---
:1980 Author Organization [place] Address [address] [place] [address] Care Team Providers Name Role Phone Aydee Nam FACILITIES MAINTENANCE TECHNICIAN GLASS TINTER Primary Care Provider [phone] Aydee Nam FACILITIES MAINTENANCE TECHNICIAN GLASS TINTER Unavailable [phone] Louisa Hood FACILITIES MAINTENANCE TECHNICIAN GLASS TINTER Unavailable [phone] Se Levy PRESCRIPTION CLERK Unavailable Unavailable Clari Ruiz [facility] Unavailable [phone] Angel Hannah MD Unavailable Lesly Celaya MD Unavailable Elizabeth Mcintyre CN Unavailable Tawana Patel MA Unavailable Unavailable Mago Swift PHLEBOTOMIST MEDICAL LAB ASSISTANT Unavailable Reason for Visit Reason Comments Abnormal Uterine Bleeding Encounter Details Date Type Department Care Team Description 11/04/2021 Office Visit [facility] Ramses Mcpherson rrhagia with regular cycle (Primary Dx); Clinic Sri Echols MD Dysmenorrhea; [address] [place] [address] Dyspareunia in female; [address] [place] [address] S/P endometrial ablation [address] [place] [address] [phone] Social History Tobacco Use Types Packs/Day Years [...] How often do you attend mormonism or bahai services? Never 08/05/2021 Do you [...] at Date Recorded Female 11/09/2021 7:53 PM INCREMENT MANAGER COVID-19 Exposure Response Date Recorded In the last month, have you been in contact with No / Unsure 11/04/2021 11:14 AM INCREMENT MANAGER someone who was confirmed or suspected to have Coronavirus / COVID-19? documented as of this encounter Last Filed Vital Signs Vital Sign Reading Time Taken Comments Blood Pressure 102/66 11/04/2021 11:25 AM INCREMENT MANAGER Pulse - - Temperature - - Respiratory Rate - - Oxygen Saturation - - Inhaled Oxygen Concentration - - Weight 91.4 kg (201 lb 6.4 oz) 11/04/2021 11:25 AM INCREMENT MANAGER Height - - Body Mass Index 31.54 10/12/2021 11:16 AM INCREMENT MANAGER documented in this encounter Progress Notes Ramses [...] GENITOURINARY SURGERY Tubal ligation and ablasion ??? COVER CREASER SURGERY not sure tubal ligation and ablasion [...] hour(s)) Exercise Stress Test - Adult Narrative [id number] [facility] [id number]^CYRIL^AYDEE^LILIANA [facility] Echocardiography Laboratory [address] [place] [address] Name: MARTA HAWKINS : 1980 Study Date: 11/04/2021 08:30 AM Age: 41 yrs Gender: Female Patient Location: [facility] Reason For Study: Shortness of [...] normal. Stress The patient exercised 7:12. RPP 58081. There was a normal BP response to [...] Menorrhagia with regular cycle N92.0 Kortney-Operative Worksheet COVER CREASER 2. Dysmenorrhea N94.6 Kortney-Operative Worksheet COVER CREASER 3. Dyspareunia in female N94.10 Kortney-Operative Worksheet COVER CREASER 4. S/P endometrial ablation Z98.890 Kortney-Operative Worksheet COVER CREASER Discussed options of management with this 41-year-old [...] in the near future Ramses Mcpherson MD [facility] EMENT MANAGER documented in this encounter Nursing Notes Carlene Frazier, SECURITY GUARDS DISPATCHER - 11/04/2021 11:15 AM CST Chief Complaint [...] using cuff size regular. Carlene Frazier CMA EMENT MANAGER documented in this encounter Plan of Treatment Upcoming Encounters Date Type Specialty Care Team Description 10/21/2022 Office Visit Pulmonology Obdulio Barrera MD [address] [place] [address] [phone] (Wo rk) 10/25/2022 PRE VISIT ENT Charo Burton MD Previsit [address] [place], [place] [address]225 (Wo rk) 10/25/2022 Office Visit ENT Charo Burton MD [address] [place] [address] [phone] (Wo rk) 10/25/2022 Office Visit ENT Provider, Jeannette Ent Dysphonia Resident Inspector 10/25/2022 Virtual Visit Pain & [place] [address] [place], [place] [address] 10/28/2022 Appointment Speech Therapy Anabel Chew, WIRE SAWYER [address] [address] (Wo rk) 11/17/2022 Appointment Speech Therapy Anabel Chew, WIRE SAWYER [address] [phone] (Wo rk) 12/01/2022 Office Visit Pain & [place] [address] [place], [place] [address] (Wo rk) 12/23/2022 Office Visit Neurology Colby Yeung MD [address] [place] [address] (Wo rk) Scheduled Orders Name Type Priority Associated Diagnoses Order S chedule Kortney-Operative Procedures Routine Menorrhagia with Ordered: 11/04/2021 Worksheet COVER CREASER regular cycle Dysmenorrhea Dyspareunia in f emale S/P endometrial ablation documented as of this encounter Visit Diagnoses Diagnosis Menorrhagia with regular cycle - Primary Excessive or frequent menstruation Dysmenorrhea Dyspareunia in female S/P endometrial ablation Other postprocedural status documented in this encounter Additional Health Concerns Assessment Noted Time PHQ-9 Depression Total Score: 06/28/2021 7:03 AM CD T documented as of this encounter Care Teams Director Business Travel Relationship Specialty Start Date End Date Aydee Nam, PCP - General Nurse Practitioner - 05/17/21 FACILITIES MAINTENANCE TECHNICIAN GLASS TINTER Family [address] [place], [place] [phone] Aydee Nam, Assigned PCP 04/28/21 FACILITIES MAINTENANCE TECHNICIAN GLASS TINTER [address] [place], [place] [phone] Louisa Hood, Assigned Neuroscience 07/11/21 FACILITIES MAINTENANCE TECHNICIAN GLASS TINTER Provider [address] [place], [place] [address] Se Levy, Lead Qa Automation Developer 08/05/21 05/12/22 Clari Francois Pharmacist Pharmacist 08/06/21 06/07/22 Jocelyn [facility] [address] [facility] [address] [place] [address] [place], Assigned Sleep 08/01/21 Angel Turcios, Provider [address] [place] [address] Lesly Celaya MD Assigned Surgical 09/05/21 [address] Provider [place], [place] [address] Elizabeth Mcintyre CNM Assigned OBGYN 09/05/21 11/06/21 [id number] [address] Provider [place], [place] [phone] Tawana Patel MA [facility] 09/30/21 Worker Mago Swift LICSW Lead Qa Automation Developer Material Damage Adjuster - 08/05/21 Clinical documented as of this encounter
--- OUTSIDE RECORDS SUMMARY | 2022-10-21 09:02 | XMS_ITS | Encounter Summary ---
:1980 Author Organization [place] Address [address] [place] [address] Care Team Providers Name Role Phone Aydee Burton CHAPLAIN HOE WORKER Primary Care Provider Aydee Burton CHAPLAIN HOE WORKER Unavailable [phone] Louisa Hood CHAPLAIN HOE WORKER Unavailable [phone] Se Levy PAIN MANAGEMENT NURSE PRACTITIONER Unavailable Unavailable Clari Ruiz [facility] Unavailable [phone] Angel Hannah MD Unavailable Lesly Celyaa MD Unavailable Tawana Patel MA Unavailable Unavailable Ramses Mcpherson MD Unavailable [phone] Mago Swift BLACKSMITH HELPER Unavailable Encounter Details Date Type Department [...] How often do you attend uatsdin or hoahaoism services? 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/2021 7:53 PM FOOD CROPS FARM HAND COVID-19 Exposure Response Date Recorded In the last month, have you been in contact with No / Unsure 11/10/2021 8:59 AM FOOD CROPS FARM HAND someone who was confirmed or suspected to have Coronavirus / COVID-19? documented as of this encounter Plan of Treatment Upcoming Encounters Date Type Specialty Care Team Description 10/21/2022 Office Visit Pulmonology Obdulio Barrera MD [address] [place] [address] (Wo rk) 10/25/2022 PRE VISIT Charo Carter MD Previsit [address] [place] [address] (Wo rk) 10/25/2022 Office Visit Charo Carter MD [address] [place] [address] (Wo rk) 10/25/2022 Office Visit ENT Provider, Jeannette Ent Dysphonia Heel Breaster 10/25/2022 Virtual Visit Pain & [place] [address] [place], [place] [address] 10/28/2022 Appointment Speech Therapy Anabel Chew, OUT OF TOWN COLLECTION CLERK [address] 395035 (Wo rk) 11/17/2022 Appointment Speech Therapy Anabel Chew, OUT OF TOWN COLLECTION CLERK [address] [phone] (Wo rk) 12/01/2022 Office Visit Pain & [place] [address] [place], [place] [address] (Wo rk) 12/23/2022 Office Visit Neurology Colby Yeung MD [address] [place] [address] (Wo rk) documented as of this encounter Visit Diagnoses Not on filedocumented in this encounter Additional Health Concerns Assessment Noted Time PHQ-9 Depression Total Score: 22 06/28/2021 7:03 AM CD T documented as of this encounter Care Teams Prestidigitator Relationship Specialty Start Date End Date Aydee Burton, PCP - General Nurse Practitioner - 05/17/21 CHAPLAIN HOE WORKER Family [address] [place], [place] [phone] Aydee Burton, Assigned PCP 04/28/21 CHAPLAIN HOE WORKER [address] [place], [place] [phone] Louisa Hood, Assigned Neuroscience 07/11/21 CHAPLAIN HOE WORKER Provider [address] [place] [address] [place] [phone] Se Levy, Lead Ride Attendant 08/05/21 05/12/22 Clari Francois Pharmacist Pharmacist 08/06/21 06/07/22 Jocelyn, [facility] [address] [place] [address] [place], Assigned Sleep 08/01/21 Angel Turcios, Provider [address] [place], [place] [address] Lesly Celaya MD Assigned Surgical 09/05/21 [address] Provider [place], [place] [address] Tawana Patel MA [facility] 09/30/21 Worker Ramses Mcpherson Assigned OBGYN 11/07/21 MD Onesimo Provider [address] [place], [place] [phone] Mago Swift [facility] Lead Ride Attendant Cut Off Saw Operator Metal - 08/05/21 Clinical documented as of this encounter
--- OUTSIDE RECORDS SUMMARY | 2022-10-21 09:02 | XMS_ITS | Encounter Summary ---
:1980 Author Organization [place] Address [address] [place] [address] Care Team Providers Name Role Phone Aydee Burton ADJUSTER ARBITRATOR SPECIAL FORCES MEDICAL SERGEANT Primary Care Provider Aydee Burton ADJUSTER ARBITRATOR SPECIAL FORCES MEDICAL SERGEANT Unavailable [phone] Louisa Hood ADJUSTER ARBITRATOR SPECIAL FORCES MEDICAL SERGEANT Unavailable [phone] Se Levy HAT MARKER Unavailable Unavailable Clari Ruiz [facility] Unavailable [phone] Angel Hannah MD Unavailable Lesly Celaya MD Unavailable Tawana Patel MA Unavailable Unavailable Ramses Mcpherson MD Unavailable [phone] Mago Swift RISK COMPLIANCE MANAGER Unavailable Encounter Details Date Type Department Care Team Description 11/08/2021 Prep for Procedure [facility] Jero Mcpherson Menorrhagia (Primary Dx); [facility] MD Onesimo Dysmenorrhea; [place] [address] Dyspareunia in female [address] [place], [place] [address] [facility] [address] [place] [address] Social History Tobacco Use Types [...] How often do you attend samaritan or presybeterian services? 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/2021 7:53 PM MANAGER MISSION COVID-19 Exposure Response Date Recorded In the last month, have you been in contact with No / Unsure 11/04/2021 11:14 AM MANAGER MISSION someone who was confirmed or suspected to have Coronavirus / COVID-19? documented as of this encounter Plan of Treatment Upcoming Encounters Date Type Specialty Care Team Description 10/21/2022 Office Visit Pulmonology Obdulio Barrera MD [address] [place] [address] (Wo rk) 10/25/2022 PRE VISIT ENT Charo Burton MD Previsit [address] [place] [phone] (Wo rk) 10/25/2022 Office Visit Charo Carter MD [address] [place] [phone] (Wo rk) 10/25/2022 Office Visit ENT Provider, Ent Dysphonia Clay Stain Mixer 10/25/2022 Virtual Visit Pain & [place] [address] [place], [place] [address] 10/28/2022 Appointment Speech Therapy Anabel Chew, BELL MAKER [address] [phone] (Wo rk) 11/17/2022 Appointment Speech Therapy Anabel Chew, BELL MAKER [address] [address] (Wo rk) 12/01/2022 Office Visit Pain & [place] [address] [place], [place] [address] (Wo rk) 12/23/2022 Office Visit Neurology Colby Yeung MD [address] [place] [address] (Wo rk) documented as of this encounter Visit Diagnoses Diagnosis Menorrhagia - Primary Excessive or frequent menstruation Dysmenorrhea Dyspareunia in female documented in this encounter Additional Health Concerns Assessment Noted Time PHQ-9 Depression Total Score: 22 06/28/2021 7:03 AM CD T documented as of this encounter Care Teams District Administrative Assistant Relationship Specialty Start Date End Date Aydee Burton, PCP - General Nurse Practitioner - 05/17/21 ADJUSTER ARBITRATOR SPECIAL FORCES MEDICAL SERGEANT Family [address] [place], [place] [phone] Aydee Burton, Assigned PCP 04/28/21 ADJUSTER ARBITRATOR SPECIAL FORCES MEDICAL SERGEANT [address] [place], [place] [phone] Louisa Hood, Assigned Neuroscience 07/11/21 ADJUSTER ARBITRATOR SPECIAL FORCES MEDICAL SERGEANT Provider [address] [place], [place] [address] Se Levy, Lead Metal Hanging Supervisor 08/05/21 05/12/22 HAT MARKERClari Ordonez Pharmacist Pharmacist 08/06/21 06/07/22 Jocelyn, [facility] [address] [place], [place] [phone] [place], Assigned Sleep 08/01/21 Angel Turcios, Provider [address] [place], [place] [address] Lesly Celaya MD Assigned Surgical 09/05/21 [address] Provider [place], [place] [address] Tawana Patel MA [facility] 09/30/21 Worker Ramses Mcpherson Assigned OBGYN 11/07/21 MD Onesimo Provider [address] [place], [place] [phone] Mago Swift [facility] Lead Metal Hanging Supervisor Sheet Catcher - 08/05/21 Clinical documented as of this encounter
--- OUTSIDE RECORDS SUMMARY | 2022-10-21 09:02 | XMS_ITS | Encounter Summary ---
:1980 Author Organization [place] Address [address] [place] [address] Care Team Providers Name Role Phone Aydee Burton TAKER OFF DRYING KILN GLASS LOADING EQUIPMENT TENDER Primary Care Provider Aydee Burton TAKER OFF DRYING KILN GLASS LOADING EQUIPMENT TENDER Unavailable [phone] Louisa Hood TAKER OFF DRYING KILN GLASS LOADING EQUIPMENT TENDER Unavailable [phone] Se Levy SCIENCE INTERN Unavailable Unavailable Clari Ruiz [facility] Unavailable [phone] Angel Hannah MD Unavailable Lesly Celaya MD Unavailable Tawana Patel MA Unavailable Unavailable Ramses Mcpherson MD Unavailable [phone] Mago Swift BURN OUT TENDER LACE Unavailable Encounter Details Date Type Department Care [...] How often do you attend muslim or lutheran services? Never 08/05/2021 Do you [...] at Date Recorded Female 11/09/2021 7:53 PM INSOLVENCY PRACTITIONER COVID-19 Exposure Response Date Recorded In the last month, have you been in contact with No / Unsure 11/16/2021 3:28 PM INSOLVENCY PRACTITIONER someone who was confirmed or suspected to have Coronavirus / COVID-19? documented as of this encounter Plan of Treatment Upcoming Encounters Date Type Specialty Care Team Description 10/21/2022 Office Visit Pulmonology Obdulio Barrera MD [address] [place] [address] (Wo rk) 10/25/2022 PRE VISIT Charo Carter MD Previsit [address] [place] [address] (Wo rk) 10/25/2022 Office Visit Charo Carter MD [address] [place] [address] (Wo rk) 10/25/2022 Office Visit ENT Provider, Jeannette Ent Dysphonia Cigar Wrapper Tender Automatic 10/25/2022 Virtual Visit Pain & [place] [address] [place], [place] [address] 10/28/2022 Appointment Speech Therapy Anabel Chew, HYDROLOGY TEACHER [address] [address] (Wo rk) 11/17/2022 Appointment Speech Therapy Anabel Chew, HYDROLOGY TEACHER [address] [address] (Wo rk) 12/01/2022 Office Visit Pain & [place] [address] [place], [place] [address] (Wo rk) 12/23/2022 Office Visit Neurology Colby Yeung MD [address] [place] [address] (Wo rk) documented as of this encounter Visit Diagnoses Not on filedocumented in this encounter Additional Health Concerns Assessment Noted Time PHQ-9 Depression Total Score: 22 06/28/2021 7:03 AM CD T documented as of this encounter Care Teams Spool Worker Relationship Specialty Start Date End Date Aydee Burton, PCP - General Nurse Practitioner - 05/17/21 TAKER OFF DRYING KILN GLASS LOADING EQUIPMENT TENDER Family [address] [place], [place] [phone] Aydee Burton, Assigned PCP 04/28/21 TAKER OFF DRYING KILN GLASS LOADING EQUIPMENT TENDER [address] [place], [place] [phone] Louisa Hood, Assigned Neuroscience 07/11/21 TAKER OFF DRYING KILN GLASS LOADING EQUIPMENT TENDER Provider [address] [place] [address] [place] 633135 Se Levy, Lead Insulation Professional 08/05/21 05/12/22 Clari Francois Pharmacist Pharmacist 08/06/21 06/07/22 Jocelyn, [facility] [address] [place] [address] [place], Assigned Sleep 08/01/21 Angel Turcios, Provider [address] [place], [place] [address] Lesly Celaya MD Assigned Surgical 09/05/21 [address] Provider [place], [place] [address] Tawana Patel MA [facility] 09/30/21 Worker Ramses Mcpherson Assigned OBGYN 11/07/21 MD Onesimo Provider [address] [place], [place] [phone] Mago Swift [facility] Lead Insulation Professional Hydraulic Plumber - 08/05/21 Clinical documented as of this encounter
--- OUTSIDE RECORDS SUMMARY | 2022-10-21 09:02 | XMS_ITS | Encounter Summary ---
:1980 Author Organization [place] Address [address] [place] [address] Care Team Providers Name Role Phone Aydee Burton CHILD CARE LEADER INTERNIST MEDICAL DOCTOR MD Primary Care Provider [phone] Aydee Burton CHILD CARE LEADER INTERNIST MEDICAL DOCTOR MD Unavailable [phone] Louisa Hood CHILD CARE LEADER INTERNIST MEDICAL DOCTOR MD Unavailable [phone] Se Levy HOG OPERATOR Unavailable Unavailable Clari Ruiz [facility] Unavailable [phone] Angel Hannah MD Unavailable Lesly Celaya MD Unavailable Elizabeth Mcintyre CN Unavailable Tawana Patel MA Unavailable Unavailable Mago Swift HATCH TENDER Unavailable Encounter Details Date Type Department [...] How often do you attend sikhism or church services? 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/2021 7:53 PM EVENT TECHNICIAN COVID-19 Exposure Response Date Recorded In the last month, have you been in contact with No / Unsure 11/04/2021 11:14 AM EVENT TECHNICIAN someone who was confirmed or suspected to have Coronavirus / COVID-19? documented as of this encounter Plan of Treatment Upcoming Encounters Date Type Specialty Care Team Description 10/21/2022 Office Visit Pulmonology Obdulio Barrera MD [address] [place] [address] (Wo rk) 10/25/2022 PRE VISIT Charo Carter MD Previsit [address] [place] [address] (Wo rk) 10/25/2022 Office Visit Charo Carter MD [address] [place] [address] (Wo rk) 10/25/2022 Office Visit ENT Provider, Jeannette Ent Dysphonia Lead Front End Developer 10/25/2022 Virtual Visit Pain [place] [address] [place], [place] [address] 10/28/2022 Appointment Speech Therapy Anabel Chew, SURVEY ASSOCIATE [address] [phone] (Wo rk) 11/17/2022 Appointment Speech Therapy Anabel Chew, SURVEY ASSOCIATE [address] [phone] (Wo rk) 12/01/2022 Office Visit Pain & [place] [address] [place], [place] [address] (Wo rk) 12/23/2022 Office Visit Neurology Colby Yeung MD [address] [place] [phone] (Wo rk) documented as of this encounter Visit Diagnoses Not on filedocumented in this encounter Additional Health Concerns Assessment Noted Time PHQ-9 Depression Total Score: 22 06/28/2021 7:03 AM CD T documented as of this encounter Care Teams Groundskeeping Maintenance Relationship Specialty Start Date End Date Aydee Burton, PCP - General Nurse Practitioner - 05/17/21 CHILD CARE LEADER INTERNIST MEDICAL DOCTOR MD Family [address] [place], [place] [phone] Aydee Burton, Assigned PCP 04/28/21 CHILD CARE LEADER INTERNIST MEDICAL DOCTOR MD [address] [place], [place] [phone] Louisa [place], Assigned Neuroscience 07/11/21 CHILD CARE LEADER INTERNIST MEDICAL DOCTOR MD Provider [address] [place] [address] [phone] Se Levy, Lead Digital Account Coordinator 08/05/21 05/12/22 Clari Francois Pharmacist Pharmacist 08/06/21 06/07/22 Jocelyn, [facility] [address] [place] [address] [place], Assigned Sleep 08/01/21 Angel Turcios, Provider [address] [place], [place] [phone] Lesly Celaya MD Assigned Surgical 09/05/[address] Provider [place], [place] [phone] Elizabeth Mcintyre CNM Assigned OBGYN 09/05/21 11/06/[address] Provider [place], [place] [phone] Tawana Patel MA [facility] 09/30/21 Worker Mago Swift LICSW Lead Digital Account Coordinator Kiss Setter Hand - 08/05/21 Clinical documented as of this encounter
--- OUTSIDE RECORDS SUMMARY | 2022-10-21 09:02 | XMS_ITS | Encounter Summary ---
:1980 Author Organization [place] Address [address] [place] [address] Care Team Providers Name Role Phone Aydee Burton INVESTIGATIVE REPORTER SUPERCALENDER OPERATOR HELPER Primary Care Provider Aydee Burton INVESTIGATIVE REPORTER SUPERCALENDER OPERATOR HELPER Unavailable [phone] Louisa Hood INVESTIGATIVE REPORTER SUPERCALENDER OPERATOR HELPER Unavailable [phone] Se Levy CUSTOMER SUPPORT ANALYST Unavailable Unavailable Clari Ruiz [facility] Unavailable [phone] Angel Hannah MD Unavailable Lesly Celaya MD Unavailable Tawana Patel MA Unavailable Unavailable Ramses Mcpherson MD Unavailable [phone] Mago Swift CARE TRANSITIONS MANAGER Unavailable Encounter Details Date Type Department Care Team Description 11/16/2021 [facility] Romel [place] [address] [address] [place] [address] [address] [place] [address] [phone] Social History Tobacco Use Types Packs/Day Years [...] How often do you attend faith or advent services? 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/2021 7:53 PM CAR BLOCKER COVID-19 Exposure Response Date Recorded In the last month, have you been in contact with No / Unsure 11/10/2021 8:59 AM CAR BLOCKER someone who was confirmed or suspected to have Coronavirus / COVID-19? documented as of this encounter Progress Notes Lucas Anaya MD - 11/16/2021 9:44 AM CST Reviewed records from [facility] and [facility] of neurology. They are seen by Dr. Linder at [facility] and may undergo a surgery to remove some hardware from their rightradius. 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 No change to current plan of care. Lucas Anaya DO [facility] Pain Management BLOCKER documented in this encounter Plan of Treatment Upcoming Encounters Date Type Specialty Care Team Description 10/21/2022 Office Visit Pulmonology Obdulio Barrera MD [address] [place] [phone] (Wo rk) 10/25/2022 PRE VISIT ENT Charo Burton MD Previsit [address] [place] [phone] (Wo rk) 10/25/2022 Office Visit ENT Charo Burton MD [address] [place] [address] [phone] (Wo rk) 10/25/2022 Office Visit ENT Provider, Ent Dysphonia Door Closer Mechanic 10/25/2022 Virtual Visit Pain & [place]iative [place] [address] [place], [place] [address] 10/28/2022 Appointment Speech Therapy Anabel Chew, PADDED PRODUCTS FINISHER [address] [address] (Wo rk) 11/17/2022 Appointment Speech Therapy Anabel Chew, PADDED PRODUCTS FINISHER [address] 729205 (Wo rk) 12/01/2022 Office Visit Pain & [place] [address] [place], [place] [address] (Wo rk) 12/23/2022 Office Visit Neurology Colby Yeung MD [address] [address] (Wo rk) documented as of this encounter Visit Diagnoses Not on filedocumented in this encounter Additional Health Concerns Assessment Noted Time PHQ-9 Depression Total Score: 22 06/28/2021 7:03 AM CD T documented as of this encounter Care Teams Podopediatrician Relationship Specialty Start Date End Date Aydee Burton, PCP - General Nurse Practitioner - 05/17/21 INVESTIGATIVE REPORTER SUPERCALENDER OPERATOR HELPER Family [address] [place] [address] Aydee Burton, Assigned PCP 04/28/21 INVESTIGATIVE REPORTER SUPERCALENDER OPERATOR HELPER [address] [place], [place] [phone] Louisa Hood, Assigned Neuroscience 07/11/21 INVESTIGATIVE REPORTER SUPERCALENDER OPERATOR HELPER Provider [address] [place], [place] [phone] Se Levy, Lead Cathodic Protection Technician 08/05/21 05/12/22 Clari Francois Pharmacist Pharmacist 08/06/21 06/07/22 [facility] [address] [place] [address] [place], Assigned Sleep 08/01/21 Angel Turcios, Provider [address] [place] [address] Lesly Celaya MD Assigned Surgical 09/05/21 [address] [place] [place] [address] Tawana Patel MA [facility] 09/30/21 Worker aRmses Mcpherson Assigned OBGYN 11/07/21 MD Onesimo Provider [address] [place] [address] Mago Swift, [facility] Lead Cathodic Protection Technician Clinical Cytogenetics Director - 08/05/21 Clinical documented as of this encounter
--- OUTSIDE RECORDS SUMMARY | 2022-10-21 09:02 | XMS_ITS | Encounter Summary ---
:1980 Author Organization [facility] Address [address] [place] [address] Care Team Providers Name Role Phone Aydee Burton MAIL HANDLER CUSTOMIZER Primary Care Provider [phone] Aydee Burton MAIL HANDLER CUSTOMIZER Unavailable [phone] Louisa Hood MAIL HANDLER CUSTOMIZER Unavailable [phone] Se Levy DRY PLASTERER HELPER Unavailable Unavailable Clari Ruiz [facility] Unavailable [phone] Angel Hannah MD Unavailable Lesly Celaya MD Unavailable Tawana Patel MA Unavailable Unavailable Ramses Mcpherson MD Unavailable [phone] Mago Swift GRAIN SHOVELER Unavailable Reason for Visit Reason Comments Pain Consultation (Routine: Next available opening) - Closed Specialty Diagnoses / Procedures Referred By Contact Refer red To Contact Diagnoses Bilateral occipital neuralgia Upper back pain Lucas Anaya [facility] MD Romel [address] [place] [address] [place] [phone] Referral ID Status Reason Start Date Expiration Date Visits Requ ested Visits Authorized [id number] Closed 11/10/2021 11/10/2022 1 1 Encounter Details Date Type Department Care Team Description 12/01[facility]2021 [facility] Trig barry point of shoulder region, unspecified laterality (Primary Dx); Pain Management MD Romel Bilateral occipital neuralgia; [place] [address] [address] Upper back pain; [address] [place] [address] Chronic myofascial pain [address] [place], [place] [phone] Social History Tobacco Use Types Packs/Day Years [...] How often do you attend anabaptism or sabianist services? Never 08/05/2021 Do you [...] at Date Recorded Female 11/09/2021 7:53 PM COMMAND AND CONTROL SPECIALIST COVID-19 Exposure Response Date Recorded In the last month, have you been in contact with No / Unsure 12/01/2021 8:05 AM COMMAND AND CONTROL SPECIALIST someone who was confirmed or suspected to have Coronavirus / COVID-19? documented as of this encounter Last Filed Vital Signs Vital Sign Reading Time Taken Comments Blood Pressure 129/76 12/01/2021 8:09 AM COMMAND AND CONTROL SPECIALIST Pulse 106 12/01/2021 8:09 AM COMMAND AND CONTROL SPECIALIST Temperature - - Respiratory Rate - - Oxygen Saturation 98% 12/01/2021 8:09 AM COMMAND AND CONTROL SPECIALIST Inhaled Oxygen Concentration - - Weight - - Height - - Body Mass Index - - documented in this encounter Patient Instructions Patient InstructionsViridiana Juarez MA - 12/01/2021 8:00 AM CST [facility] Post Procedure [...] (Monday through Monday 8 am-4:30 pm) at [phone] or the Provider Line after hours at [phone]: AND AND CONTROL SPECIALIST documented in this encounter Progress Notes Lucas Anaya MD - 12/01/2021 8:00 AM CST [facility] - Procedure Note Date of Visit: 12/01/2021 Pre procedure Diagnosis: Bilateral occipital neuralgia & Trigger points/myofascial pain/bagoeadu24.9 Post procedure Diagnosis: Same Procedure performed: Bilatearl occipital nerve block & Trigger Point Injections Anesthesia: none Complications: none Operators: Lucas Anaya DO Indications: Marta iHll is a 41 year old female with [...] the patient was advised to contact the [facility] for any of the following: Fever, chills, or night sweats New onset of pain, numbness, or weakness Any questions/concerns regarding the procedure If unable to contact the Pain Center, the patient was instructed to go to a local Emergency Room forany complications. 2.The patient should follow-up with the referring provider in 4-6 weeks for post-procedure evaluation. Lucas Anaya DO [facility] AND AND CONTROL SPECIALIST documented in this encounter Plan of Treatment Upcoming Encounters Date Type Specialty Care Team Description 10/21/2022 Office Visit Pulmonology Obdulio Barrera MD [address] [place] [address] [phone] (Wo rk) 10/25/2022 PRE VISIT ENT Charo Burton MD Previsit [address] [place] [address] [phone] (Estefanía rk) 10/25/2022 Office Visit Charo Carter MD [address] [place] [address] [phone] (Estefanía casanova) 10/25/2022 Office Visit ENT Provider, Jeannette Ent Dysphonia Cognos Analyst 10/25/2022 Virtual Visit Pain & [place] [address] [place], [place] [address] 10/28/2022 Appointment Speech Therapy Anabel Chew, WOOD LAST MAKER [address] [phone] (Wo rk) 11/17/2022 Appointment Speech Therapy Anabel Chew, CELINE [address] 716295 (Wo rk) 12/01/2022 Office Visit Pain & [place] [address] [place], [place] [address] (Wo rk) 12/23/2022 Office Visit Neurology Colby Yeung MD [address] [place], [place] [phone] (Wo rk) documented as of this encounter [...] bupivacaine (MARCAINE) 0.5% Given 12/01/2021 11:55 AM COMMAND AND CONTROL SPECIALIST 20 mg preservative free injection 20 mg (4 mL), Perineural, ONCE, On Mon12/01/21 at 1200, For 1 dose bupivacaine (MARCAINE) 0.5% preservative Given 12/01/2021 11:57 AM COMMAND AND CONTROL SPECIALIST 22.5 mg free injection 22.5 mg (4.5 mL), Other, ONCE, On Mon12/01/21 at 1200, For 1 dose lidocaine 1 % 4.5 mL Given 12/01/2021 11:57 AM COMMAND AND CONTROL SPECIALIST 4.5 mLs 4.5 mL, Other, ONCE, On Mon12/01/21 at 1200, For 1 dose triamcinolone (KENALOG-40) injection 40 mg Given 12/01/2021 11:55 AM COMMAND AND CONTROL SPECIALIST 40 mg 40 mg, Perineural, ONCE, On Mon12/01/21 at 1200, For 1 dose triamcinolone (KENALOG-40) injection 40 mg Given 12/01/2021 11:58 AM COMMAND AND CONTROL SPECIALIST 40 mg 40 mg, Intramuscular, ONCE, On Mon12/01/21 at 1200, For 1 dose documented in this encounter Additional Health Concerns Assessment Noted Time PHQ-9 Depression Total Score: 06/28/2021 7:03 AM CD T documented as of this encounter Care Teams Customizer Relationship Specialty Start Date End Date Aydee Burton, PCP - General Nurse Practitioner - 05/17/21 MAIL HANDLER CUSTOMIZER Family [address] [place] [address] [phone] Aydee Burton, Assigned PCP 04/28/21 MAIL HANDLER CUSTOMIZER [address] [place] [address] [phone] Louisa Hood, Assigned Neuroscience 07/11/21 MAIL HANDLER CUSTOMIZER Provider [address] [place], [place] [phone] Se Levy, Lead Warehouse Coordinator 08/05/21 05/12/22 Clari Francois Pharmacist Pharmacist 08/06/21 06/07/22 [facility] [address] [place] [address] [place], Assigned Sleep 08/01/21 Angel Turcios, Provider [address] [place], [place] [address] Lesly Celaya MD Assigned Surgical 09/05/21 [address] [place] [place] [address] Tawana Patel MA [facility] 09/30/21 Worker Ramses Mcpherson Assigned OBGYN 11/07/21 MD Onesimo Provider [address] [place] [address] Mago Swift, [facility] Lead Warehouse Coordinator Facer Operator - 08/05/21 Clinical documented as of this encounter
--- OUTSIDE RECORDS SUMMARY | 2022-10-21 09:02 | XMS_ITS | Encounter Summary ---
:1980 Author Organization [place] Address [address] [place] [address] Care Team Providers Name Role Phone Aydee Nam APRN, CNP Primary Care Provider Aydee Nam APRN PROFESSOR OF COMMUNICATION AND WRITING Unavailable [phone] Louisa Hood SUPPLY AIDE PROFESSOR OF COMMUNICATION AND WRITING Unavailable [phone] Se Levy CRECHE ATTENDANT Unavailable Unavailable Clari Ruiz [facility] Unavailable [phone] Angel Hannah MD Unavailable Lesly Celaya MD Unavailable Tawana Patel MA Unavailable Unavailable Ramses Mcpherson MD Unavailable [phone] Mago Swift EXTERMINATOR TERMITE Unavailable Reason for Visit Reason Comments Pre-Op Exam Encounter Details Date Type Department Care Team Description 12/10/2021 Office Visit [facility] Aydee Nam Prejoya gene ral physical exam (Primary Dx); [facility] [place] ELADIO Mendez CNP Uterine leiomyoma, unspecified location; [address] [place], [place] [phone] [place] [address] [facility] with [facility]; [address] Status post endometrial ablation [place], [place], [place] [phone] Social History Tobacco Use Types Packs/Day Years [...] How often do you attend adventism or holiness services? Never 08/05/2021 Do you [...] at Date Recorded Female 11/09/2021 7:53 PM REFUSE AND RECYCLING WORKER COVID-19 Exposure Response Date Recorded In the last month, have you been in contact with No / Unsure 12/10/2021 8:26 AM REFUSE AND RECYCLING WORKER someone who was confirmed or suspected to have Coronavirus / COVID-19? documented as of this encounter Last Filed Vital Signs Vital Sign Reading Time Taken Comments Blood Pressure 114/72 12/10/2021 8:55 AM REFUSE AND RECYCLING WORKER Pulse 107 12/10/2021 8:55 AM REFUSE AND RECYCLING WORKER Temperature 36.3 ??C (97.3 ??F) 12/10/2021 8:55 AM REFUSE AND RECYCLING WORKER Respiratory Rate - - Oxygen Saturation 100% 12/10/2021 8:55 AM REFUSE AND RECYCLING WORKER Inhaled Oxygen Concentration - - Weight 92.5 kg (204 lb) 12/10/2021 8:55 AM REFUSE AND RECYCLING WORKER Height 170.2 cm (5' 7) 12/10/2021 8:55 AM REFUSE AND RECYCLING WORKER Body Mass Index 31.95 12/10/2021 8:55 AM REFUSE AND RECYCLING WORKER documented in this encounter Patient Instructions Patient InstructionsAydee Nam, ELADIO PROFESSOR OF COMMUNICATION AND WRITING - 12/10/2021 8:50 AM REFUSE AND RECYCLING WORKER Preparing for Your Surgery Getting started A [...] list of medicines, including herbal treatments and jpna-jcv-hncujtv drugs ?? Whether the patient has a [...] having surgery. (If you don't have insurance,call [phone].) ?? Call your clinic if there's any [...] your health care provider. Copyright ?? 2018 [facility]. All rights reserved. Clinically reviewed by Tika Garrett MD. mobiTeris [id number] - REV 06/02. SE AND RECYCLING WORKER documented in this encounter Progress Notes Aydee Nam APRN CNP - 12/10/2021 8:50 AM CST Images from the original note were not included. [address] [address] Primary Provider: Aydee Nam Pre-op Performing Provider: AYDEE NAM PREOPERATIVE EVALUATION: Today's date: 12/10/2021 Marta Hill is a 41 year old female who presents for a preoperative evaluation. Surgical Information: Surgery/Procedure: TOTAL LAPAROSCOPIC HYSTERECTOMY Surgery Location: [facility] Surgeon: Dr Ramses Mcpherson Surgery Date: 12/28/2021 Time of Surgery: 7:30a Where patient plans to recover: At home with family Fax number for surgical facility: Note does not need to be faxed, will be available electronically in [facility]. Type of Anesthesia Anticipated: General Assessment & Plan The proposed surgical procedure is considered INTERMEDIATE risk. Preop general physical exam Uterine leiomyoma, unspecified location Menorrhagia with irregular cycle Status post endometrial ablation Cleared for surgery without concerns. Marta verbalizes understanding of plan of care and is in agreement. - HCG Qual, Urine ([id number]) Possible Sleep Apnea: Borderline sleep apnea needs [...] Directive or Living Will: Preoperative Review of RETURNED GOODS SORTER: RETURNED GOODS SORTER reviewed - controlled substances reflected in medication [...] GENITOURINARY SURGERY Tubal ligation and ablasion ??? LEAD RELAY TESTER SURGERY not sure tubal ligation and ablasion [...] the past 24 hour(s)) HCG Qual, Urine ([id number]) Collection Time: 12/10/21 8:43 AM Result Value [...] evaluation report is provided to requesting physician. SE AND RECYCLING WORKER documented in this encounter Miscellaneous Notes Result Encounter Note - Aydee Nam APRN CNP - 12/10/2021 8:50 AM REFUSE AND RECYCLING WORKER Dear Marta, Here is a summary of your recent test results: Urine is negative. Good luck with surgery. For additional lab test information, [email or web address] is an excellent reference. In addition, here is a list of due or overdue Health Maintenance reminders: Depression Assessment due on 12/29/2021 Please call us at [phone] (or use O-film) to address the above recommendations if needed. [facility] you [facility]. It was an honor and a privilege to participate in your care. Brook regardsAydee FNP [facility] SE AND RECYCLING WORKER documented in this encounter Plan of Treatment Upcoming Encounters Date Type Specialty Care Team Description 10/21/2022 Office Visit Pulmonology Obdulio Barrera MD [address] [place] [address] [phone] (Wo rk) 10/25/2022 PRE VISIT ENT Charo Burton MD Previsit [address] [place] [address] [phone] (Wo rk) 10/25/2022 Office Visit Charo Carter MD [address] [place] [address] [phone] (Wo rk) 10/25/2022 Office Visit ENT Provider, Ent Dysphonia Director Selection And Administration 10/25/2022 Virtual Visit [facility] [place] [address] [place], [place] [address] 10/28/2022 Appointment Speech Therapy [place] Chew SLP [address] [phone] (Wo rk) 11/17/2022 Appointment Speech Therapy [place] Chew SLP [address] 642995 (Wo rk) 12/01/2022 Office Visit Pain & [place] [address] [place], [place] [address] (Wo rk) 12/23/2022 Office Visit Neurology Colby Yeung MD [address] [phone] (Wo rk) documented as of this encounter Procedures Procedure Name Priority Date/Time Associated Comments Diagnosis HCG QUALITATIVE URINE Routine 12/10/2021 8:43 AM Preop general Results for this REFUSE AND RECYCLING WORKER physical exam procedure are in the results section. documented in this encounter Results HCG Qual, Urine ([id number]) (12/10/2021 8:43 AM REFUSE AND RECYCLING WORKER) [facility] Method Time Signature hCG Urine Negative Negative NIKOLAS 12/10/2021 [facility] Qualitative 9:14 AM REFUSE AND RECYCLING WORKER Comment: This test is for screening purp oses. Results should be interpreted along with the clinical picture. Confirmation testing is available if warranted by ordering [id number], HCG Quantitative . Specimen Anatomical Collection Method Collection Time Receive d Time (Source) Location / / Volume Laterality Urine MID-STREAM URINE Non-blood 12/10/2021 8:43 AM 12/10 9:08 SPECIMEN / Unknown Collection / REFUSE AND RECYCLING WORKER AM REFUSE AND RECYCLING WORKER Unknown Aydee Nam APRN PROFESSOR OF COMMUNICATION AND WRITING LAB - URINE ORDERABLES Performing Organization Address City/State/ZIP Code Phon e Number [facility] [place] [address] [phone] [facility] [address] [facility] [address] E. Lab (no room number, 1st floor of clinic) [place] [address], [facility] [address] [facility] [address] Lab (no room number, 1st floor of clinic) documented in this encounter Visit Diagnoses Diagnosis Preop general physical exam - Primary Other specified pre-operative examinatio n Uterine leiomyoma, unspecified location Menorrhagia with irregular cycle Excessive or frequent menstruation Status post endometrial ablation Other postprocedural status documented in this encounter Additional Health Concerns Assessment Noted Time PHQ-9 Depression Total Score: 06/28/2021 7:03 AM CD T documented as of this encounter Care Teams Club Licensee Relationship Specialty Start Date End Date Aydee Nam, PCP - General Nurse Practitioner - 05/17/21 SUPPLY AIDE PROFESSOR OF COMMUNICATION AND WRITING Family [address] [place], [place] [address] Aydee Nam, Assigned PCP 04/28/21 SUPPLY AIDE PROFESSOR OF COMMUNICATION AND WRITING [address] [place], [place] [phone] Louisa Hood, Assigned Neuroscience 07/11/21 SUPPLY AIDE PROFESSOR OF COMMUNICATION AND WRITING Provider [address] [place], [place] [address] Se Levy, Lead Trimmer Press Clippings 08/05/21 05/12/22 CRECHE ATTENDANTClari Ordonez Pharmacist Pharmacist 08/06/21 06/07/22 Jocelyn, [facility] [address] [place], [place] [address] [place], Assigned Sleep 08/01/21 Angel Turcios, Provider [address] [place], [place] [phone] Lesly Celaya MD Assigned Surgical 09/05/21 [address] Provider [place], [place] [address] Tawana Patel MA [facility] 09/30/21 Worker Ramses Mcpherson Assigned OBGYN 11/07/21 MD [facility] Provider [address] [place], [place] [phone] Mago Swift [facility] Lead Trimmer Press Clippings Naturopathic Doctor - 08/05/21 Clinical documented as of this encounter
--- OUTSIDE RECORDS SUMMARY | 2022-10-21 09:02 | XMS_ITS | Encounter Summary ---
:1980 Author Organization [place] Address [address] [place] [address] Care Team Providers Name Role Phone Aydee Burton CARBONATOR PHARMACIST INTERN Primary Care Provider Aydee Burton CARBONATOR PHARMACIST INTERN Unavailable [phone] Louisa Hood CARBONATOR PHARMACIST INTERN Unavailable [phone] Se Levy ENERGY CONSERVATION ENGINEER Unavailable Unavailable Clari Ruiz [facility] Unavailable [phone] Angel Hannah MD Unavailable Lesly Celaya MD Unavailable Tawana Patel MA Unavailable Unavailable Ramses Mcpherson MD Unavailable [phone] Mago Swift PRIMER POWDER BLENDER WET Unavailable Reason for Visit (Routine) - Closed Specialty Diagnoses / Procedures Referred By Contact Refer red To Contact Respiratory Therapy Procedures Rh Respiratory Ther PULMONARY FUNCTION [address] [place] [address] Phone: Referral ID Status Reason Start Date Expiration Date Visits Requ ested Visits Authorized [id number] Closed 11/16/2021 11/16/2022 1 1 Encounter Details Date Type Department Care Team Description 11/16/2021 Hospital Encounter [facility] Aydee Burtoness of breath; [facility] ELADIO Mendez of chest tightness Therapy PHARMACIST INTERN [address] [facility] [address] [place], [place] [phone] [address] Social History Tobacco Use Types Packs/Day Years [...] How often do you attend rastafarian or gnosticist services? Never 08/05/2021 Do you [...] at Date Recorded Female 11/09/2021 7:53 PM BMX RIDER COVID-19 Exposure Response Date Recorded In the last month, have you been in contact with No / Unsure 11/16/2021 3:28 PM BMX RIDER someone who was confirmed or suspected to [...] 120 mg by 0 MG capsule mouth daily vitamin D3 Take 1 tablet by [...] 16, 2021.4:48 PM Luis Wu. RT Gera RIDER documented in this encounter Miscellaneous Notes Result [...] for this patient. Please call us at [phone] (or use Frogdice) to address the above recommendations if needed. Thank you for choosing [facility]. It was an honor and a privilege to participate in your care. Healthy regards, TARA Spivey [place] RIDER documented in this encounter Plan of Treatment Upcoming Encounters Date Type Specialty Care Team Description 10/21/2022 Office Visit Pulmonology Obdulio Barrera MD [address] [phone] (Wo rk) 10/25/2022 PRE VISIT ENT Charo Burton MD Previsit [address] [place] [address] (Wo rk) 10/25/2022 Office Visit ENT Charo Burton MD [address] [place] [address] (Wo rk) 10/25/2022 Office Visit ENT Provider, Jeannette Ent Dysphonia Financial Institution Treasurer 10/25/2022 Virtual Visit Pain & [place] [address] [place], [place] [address] 10/28/2022 Appointment Speech Therapy Anb[place] Chew, ASSISTANT FILM EDITOR [address] [phone] (Wo rk) 11/17/2022 Appointment Speech Therapy [place] Cehw, ASSISTANT FILM EDITOR [address] [phone] (Wo rk) 12/01/2022 Office Visit Pain & [place] [address] [place], [place] [address] (Wo rk) 12/23/2022 Office Visit Neurology Colby Yeung MD [address] [address] (Wo rk) Scheduled Orders Name Type Priority Associated Diagnoses Order S chedule Pulmonary Function Test PFT Routine Shortnes s of breath 1 Occurrences starting Feeling of chest 11/16/2021 until tightness 11/16/2021 documented as of this encounter Procedures Procedure Name Priority Date/Time Associated Diagnosis Comme nts PFT GENERAL LAB Routine 11/16/2021 3:32 PM Shortness of breath Results for this TESTING BMX RIDER Feeling of chest procedure a re in tightness the results section. documented in this encounter Results General PFT Lab (Please always keep checked) (11/16/2021 3:32 PM BMX RIDER) P athologist Signature FVC-Pred 3.93 L [facility] FVC-Pre 3.85 L [facility] FVC-%Pred-Pre 97 % [facility] FEV1-Pre 3.29 L [facility] FEV1-%Pred-Pre 102 % [facility] [id number] 82 % [facility] [id number]-Dki 86 % [facility] FEFMax-Pred 7.25 L/sec [facility] FEFMax-Pre 8.70 L/sec [facility] FEFMax-%Pred-Pr 119 % [facility] e [id number] 3.35 L/sec [facility] [id number] 3.84 L/sec [facility] GGR9569-%Pred-P 114 % [facility] re ExpTime-Pre 7.82 sec [facility] FIFMax-Pre 5.59 L/sec [facility] VC-Pred 3.93 L [facility] VC-Pre 3.95 L [facility] VC-%Pred-Pre 100 % [facility] IC-Pred 3.11 L [facility] IC-Pre 2.50 L [facility] IC-%Pred-Pre 80 % [facility] ERV-Pred 0.83 L [facility] ERV-Pre 1.45 L [facility] ERV-%Pred-Pre 175 % [facility] [id number] 84 % [facility] [id number]-Mdo 85 % [facility] FRCPleth-Pred 2.78 L [...] [facility] VA-%Pred-Pre 89 % [facility] [id number]-Fejd 82 % [facility] PQN0HIV-Nqj 83 % [facility] Specimen (Source) Anatomical Collection Method Collection Time Re ceived Time Location / / Volume Laterality 11/16/2021 3:32 PM BMX RIDER Narrative [facility] - 11/23/2021 5:06 PM BMX RIDER The FVC, FEV1, FEV1/FVC ratio and NXY86-86% are within normal limits. ??The inspiratory and expiratory flow rates are within normal limits. ??Lung volumes are within normal limits. ??The diffusing capac ity is normal. ??However, the diffusing capacity was not corrected for the patient's hemoglobin. IMPRESSION: Normal spirometry, diffusing capacity an d lung volumes. ?This interpretation has been electro nically signed: ??RICH COLE 11/23/2021 ??05:01:17 PM? Aydee Burton APRN PHARMACIST INTERN PFT ORDERABLES Performing Organization Address City/State/ZIP Code Phon e Number [facility] documented in this encounter Visit Diagnoses Diagnosis Shortness of breath Feeling of chest tightness Other chest pain documented in this encounter Additional Health Concerns Assessment Noted Time PHQ-9 Depression Total Score: 22 06/28/2021 7:03 AM CD T documented as of this encounter Care Teams Clearance Center Manager Relationship Specialty Start Date End Date Aydee Burton, PCP - General Nurse Practitioner - 05/17/21 CARBONATOR PHARMACIST INTERN Family [address] [place], [place] [phone] Aydee Burton, Assigned PCP 04/28/21 CARBONATOR PHARMACIST INTERN [address] [place], [place] [address] Louisa Hood, Assigned Neuroscience 07/11/21 CARBONATOR PHARMACIST INTERN Provider [address] [place], [place] [address] Se Levy, Lead Wire Worker 08/05/21 05/12/22 ENERGY CONSERVATION ENGINEERClari Ordonez Pharmacist Pharmacist 08/06/21 06/07/22 [facility] [facility] [address] [place], [place] [address] [place], Assigned Sleep 08/01/21 Angel Turcios, Provider [address] [place], [place] [address] Lesly Celaya MD Assigned Surgical 09/05/21 [address] Provider [place], [place] [address] Tawana Patel MA [facility] 09/30/21 Worker Ramses Mcpherson Assigned OBGYN 11/07/21 MD [facility] Provider [address] [place], [place] [phone] Mago Swift, [facility] Lead Wire Worker Pellet Machine Operator - 08/05/21 Clinical documented as of this encounter
--- OUTSIDE RECORDS SUMMARY | 2022-10-21 09:02 | XMS_ITS | Encounter Summary ---
:1980 Author Organization [place] Address [address] [place] [address] Care Team Providers Name Role Phone Aydee Burton AUTOMATIC RIVETING MACHINE OPERATOR ELECTRONIC ENGINEERING DRAFTSPERSON Primary Care Provider [phone] Aydee Burton AUTOMATIC RIVETING MACHINE OPERATOR ELECTRONIC ENGINEERING DRAFTSPERSON Unavailable [phone] Louisa Hood AUTOMATIC RIVETING MACHINE OPERATOR ELECTRONIC ENGINEERING DRAFTSPERSON Unavailable [phone] Se Levy SUPERVISOR METER SHOP Unavailable Unavailable Clari Ruiz [facility] Unavailable [phone] Angel Hannah MD Unavailable Lesly Celaya MD Unavailable Tawana Patel MA Unavailable Unavailable Ramses Mcpherson MD Unavailable [phone] Mago Swift SUPERVISOR TELEPHONE INFORMATION Unavailable Reason for Visit Reason Onset Date Comments Schedule Surgery 11/08/2021 total laparoscopic h ysterectomy Encounter Details Date Type Department Care Team Description 11/08/2021 [facility] MD [facility] (total laparoscopic [place] [address] hysterectomy) [address] [place], [place] [address] [address] [place] [address] Social History Tobacco Use Types [...] How often do you attend synagogue or mandaeism services? Never 08/05/2021 Do you [...] at Date Recorded Female 11/09/2021 7:53 PM EDITING COMPUTER PUBLISHER COVID-19 Exposure Response Date Recorded In the last month, have you been in contact with No / Unsure 11/04/2021 11:14 AM EDITING COMPUTER PUBLISHER someone who was confirmed or suspected to have Coronavirus / COVID-19? documented as of this encounter Miscellaneous Notes Telephone Encounter - Dana Blandon - 11/09/2021 1:59 PM CST Type of surgery: total laparoscopic hysterectomy Location of surgery: [facility] Date and time of surgery: 12/28/21 @ 7:30 am Surgeon: Dr. Mcpherson Pre-Op Appt Date: Patient advised to schedule. Post-Op Appt Date: 01/25/22 Packet sent out: Yes Pre-cert/Authorization completed: No Date: 11/09/21 ING COMPUTER PUBLISHER Telephone Encounter - Dnaa Blandon - 11/08/2021 7:34 AM CST Procedure name(s) - multi select Total laparoscopic hysterectomy Reason for procedure Menorrhagia, dysmenorrhea, dyspareunia Surgeon: [place] Is this a multi surgeon case? Yes [place] or [place] Laterality N/A Request for additional equipment Other (see comments) None Anesthesia General Initiate Pre-op orders for above procedure: Yes, as ordered in Epic Additional orders noted there also Location of Case: [facility] PA Car Scrubber: No Operating room director of staff development requested: No Urgency of Surgery: Routine Surgeon Procedure Time (incision to closure) in minutes (per procedure as applicable) 120 Note: Surgical Case Time Needed (in minutes) Patient Class (for admit prior to surgery, specify number of days in comments): Same day (hospital outpatient) Why can???t this outpatient surgery be done at the [facility] or ASC? Preference H&P To Be Completed By: PCP Motorboat Mechanic Helper needed? No Post-Op Appointment 4 weeks Vendor Needed? No Spinal Cord Monitoring? No Patient has Electronic Implant: No ING COMPUTER PUBLISHER documented in this encounter Plan of Treatment Upcoming Encounters Date Type Specialty Care Team Description 10/21/2022 Office Visit Pulmonology Obdulio Barrera MD [address] [address] (Estefanía casanova) 10/25/2022 PRE VISIT Charo Carter MD Previsit [address] [place], [place] [address] (Estefanía casanova) 10/25/2022 Office Visit ENT Charo Burton MD [address] [place], [place] [address] (Wo rk) 10/25/2022 Office Visit ENT Provider, Jeannette Ent Dysphonia Rotary Driller Prospecting 10/25/2022 Virtual Visit Pain & Palliative [place] [address] [place], [place] [address] 10/28/2022 Appointment Speech Therapy [place] Chew, MEETING COORDINATOR [address] [phone] (Wo rk) 11/17/2022 Appointment Speech Therapy [place] Chew, MEETING COORDINATOR [address] [phone] (Wo rk) 12/01/2022 Office Visit Pain & [place] [address] [place], [place] [address] (Wo rk) 12/23/2022 Office Visit Neurology Colby Yeung MD [address] [place], [place] [address] (Wo rk) documented as of this encounter Visit Diagnoses Not on filedocumented in this encounter Additional Health Concerns Assessment Noted Time PHQ-9 Depression Total Score: 22 06/28/2021 7:03 AM CD T documented as of this encounter Care Teams Manager Balance Relationship Specialty Start Date End Date Aydee Burton, PCP - General Nurse Practitioner - 05/17/21 AUTOMATIC RIVETING MACHINE OPERATOR ELECTRONIC ENGINEERING DRAFTSPERSON Family [address] [place] [phone] Aydee Burton, Assigned PCP 04/28/21 AUTOMATIC RIVETING MACHINE OPERATOR [facility] [address] [place], [place] [phone] Louisa Hood, Assigned Neuroscience 07/11/21 AUTOMATIC RIVETING MACHINE OPERATOR ELECTRONIC ENGINEERING DRAFTSPERSON Provider [address] [place], [place] [phone] Se Levy, Lead Cargo Broker 08/05/21 05/12/22 SUPERVISOR METER SHOP Clari Ruiz Pharmacist Pharmacist 08/06/21 06/07/22 [facility] [address] [place] [address] [place], Assigned Sleep 08/01/21 Angel Turcios, Provider [address] [place] [address] Lesly Celaya MD Assigned Surgical 09/05/21 [address] Provider [place], [place] [phone] Tawana Patel MA [facility] 09/30/21 Worker Ramses Mcpherson Assigned OBGYN 11/07/21 MD [facility] Provider [address] [place] [address] Mago Swift, [facility] Lead Cargo Broker Retail Assistant Store Manager - 08/05/21 Clinical documented as of this encounter
--- OUTSIDE RECORDS SUMMARY | 2022-10-21 09:03 | XMS_ITS | Encounter Summary ---
:1980 Author Organization [place] Address [address] [place] [address] Care Team Providers Name Role Phone Aydee Burton PRODUCTION EXPEDITER WOOD TOOL MAKER Primary Care Provider [phone] Aydee Burton PRODUCTION EXPEDITER WOOD TOOL MAKER Unavailable [phone] Louisa Hood PRODUCTION EXPEDITER WOOD TOOL MAKER Unavailable [phone] Se Levy PREKINDERGARTEN TEACHER Unavailable Unavailable Clari Ruiz [facility] Unavailable [phone] Angel Hannah MD Unavailable Lesly Celaya MD Unavailable Elizabeth Mcintyre CN Unavailable Tawana Patel MA Unavailable Unavailable Mago Swift CHEESEMAKER Unavailable Reason for Visit Auth/Cert Specialty Diagnoses [...] LESION TRUNK/ARM/LEG 2.1-3.0 CM [address] [facility] HC EXC BENIGN SKIN LESION TR UNK/ARM/LEG 3.1-4.0 CM HC EXC BENIGN SKIN LESION TRUNK/ARM/LEG >4 CM HC EXC MALIG SKIN LESION TRUNK/ARM/LEG <=0.5 CM HC EXC MALIG SKIN LESION TRUNK/ARM/LEG 0.6-1.0 CM HC EXC MALIG SKIN LESION TRUNK/ARM/LEG 1.1-2.0 [place] [address] HC EXC MALIG SKIN LESION SUSANA NK/ARM/LEG [...] Expiration Date Visits Requ ested Visits Authorized [id number] 1 1 Encounter Details Date Type Department Care Team Description 10/12/2021 Hospital Encounter [facility] Yomi Lesly, Lipoma of torso [place] PreOP/PostOP (Primary Dx) [address] [facility] [address] [facility] [address] [place], [place] [phone] [id number] Social History Tobacco Use Types Packs/Day Years [...] How often do you attend episcopalian or faith services? Never 08/05/2021 Do you [...] at Date Recorded Female 11/09/2021 7:53 PM FARM SERVICE ADVISER COVID-19 Exposure Response Date Recorded In the last month, have you been in contact with No / Unsure 10/12/2021 10:55 AM FARM SERVICE ADVISER someone who was confirmed or suspected to have Coronavirus / COVID-19? documented as of this encounter Last Filed Vital Signs Vital Sign Reading Time Taken Comments Blood Pressure 133/77 10/12/2021 5:10 PM FARM SERVICE ADVISER Pulse 110 10/12/2021 5:10 PM FARM SERVICE ADVISER Temperature 36.8 ??C (98.2 ??F) 10/12/2021 5:10 PM FARM SERVICE ADVISER Respiratory Rate 10 10/12/2021 5:10 PM FARM SERVICE ADVISER Oxygen Saturation 96% 10/12/2021 5:10 PM FARM SERVICE ADVISER Inhaled Oxygen Concentration - - Weight 93 kg (205 lb) 10/12/2021 11:16 AM FARM SERVICE ADVISER Height 170.2 cm (5' 7) 10/12/2021 11:16 AM FARM SERVICE ADVISER Body Mass Index 32.11 10/12/2021 11:16 AM FARM SERVICE ADVISER documented in this encounter Discharge Instructions Discharge InstructionsAngela Ramos RN - 10/12/2021 5:00 PM FARM SERVICE ADVISER HOME CARE FOLLOWING MINOR SURGERY Rocío Alvarez, [...] the above pain medication only as needed. Vvin-qhj-ivcwnyt anti-inflammatory medications (i.e. Ibuprofen/Advil/Motrin or Naprosyn/Aleve) may [...] to be seen, please call us at [phone]. We are located at: [address] [place] [address], [address]; [place] [address] -CONTACT US IF THE FOLLOWING DEVELOPS: 1. [...] Walk around frequently. You may consider an dksk-siz-mmfxiaw stool-softener. Your Pharmacist can assist you with [...] to discuss with the nurse or physician assistant media planner. # There is a surgeon MANAGER OF CUSTOMER BILLING on weekday evenings and over the weekend [...] STILL NOT ABLE TO URINATE (PASS WATER). SERVICE ADVISER documented in this encounter Medications at Time [...] thigh x 2 Surgeon: Lesly Celaya MD Pad Machine Operator(s): Mario Castellon PA-C and Jonah Mckeon MS3 [...] end of the case. Lesly Celaya MD SERVICE ADVISER documented in this encounter Plan of Treatment Upcoming Encounters Date Type Specialty Care Team Description 10/21/2022 Office Visit Pulmonology Obdulio Barrera MD [address] [address] (Wo rk) 10/25/2022 PRE VISIT Charo Carter MD Previsit [address] [place] [address] (Wo rk) 10/25/2022 Office Visit Charo Carter MD [address] [place] [address] [phone] (Estefanía casanova) 10/25/2022 Office Visit ENT Provider, Jeannette Ent Dysphonia Hris Administrator 10/25/2022 Virtual Visit Pain & [place] [address] [place], [place] [address] 10/28/2022 Appointment Speech Therapy Anabel Chew, FINANCIAL INSTITUTION VICE PRESIDENT [address] [phone] (Wo rk) 11/17/2022 Appointment Speech Therapy Anabel Chew, CELINE [address] [address] (Wo rk) 12/01/2022 Office Visit Pain & [place] [address] [place], [place] [address] (Wo rk) 12/23/2022 Office Visit Neurology Colby Yeung MD [address] [place], [place] [phone] (Wo rk) documented as of this encounter Procedures Procedure Name Priority Date/Time Associated Diagnosis Comme nts SURGICAL PATHOLOGY Routine 10/12/2021 1:55 PM Res ults for this EXAM FARM SERVICE ADVISER procedure are i n the results section. EXCISION, MASS, 10/12/2021 12:55 Lipoma of skin and BACK PM FARM SERVICE ADVISER subcutaneous tissue GLUCOSE BY METER Routine 10/12/2021 11:22 Results for this AM FARM SERVICE ADVISER procedure are i n the results section. documented in this encounter Results Surgical Pathology Exam (10/12/2021 1:55 PM FARM SERVICE ADVISER) Component Value Ref Test Analysis Performed At [facility] Method Time Signature Case Report Surgical Pathology Report ? Case: [id number] ? 10/13/2021 Authorizing Provider: ??Lesly Leon MD ? Collected: ? 10/12/2021 01:55 PM ? 12:09 PM LABORATO RY Ordering Location: ? [facility] ?? Received: ?10/12/2021 03:23 PM ? FARM SERVICE ADVISER ? Main OR ? Pathologist: ? Dhara [...] at 12:09 PM Clinical Soft tissue 10/13/2021 RH Information masses consistent 12:09 PM LABORATORY with lipomas from FARM SERVICE ADVISER bilateral legs, lower arms, and back. Gross [...] Sectioning the specimen reveals grossly unremarkable fat. Capsule Filler sections are submitted in 4 cassettes. FARM SERVICE ADVISER (FLORES Langley) Microscopic Microscopic 10/13/2021 Description examination was 12:09 PM LABORATORY performed. FARM SERVICE ADVISER Performing The technical 10/13/2021 Labs component of this 12:09 PM LABORATORY testing was FARM SERVICE ADVISER completed at [facility] Laboratory Case Images 10/13/2021 12:09 PM LABORATORY FARM SERVICE ADVISER Specimen Anatomical Collection Method Collection Time Receive d Time (Source) Location / / Volume Laterality Tissue STRUCTURE OF LEFT 10/12/2021 1:55 PM 11/3 3:23 THIGH / Unknown FARM SERVICE ADVISER PM FARM SERVICE ADVISER Lesly TALBOT AP Performing Organization Address City/State/ZIP Code [place] [address] Care Lab [address] Lab (1st floor, no room number) Glucose by meter (10/12/2021 11:22 AM FARM SERVICE ADVISER) athologist Signature GLUCOSE BY 92 70 - 99 10/12/2021 LABORATORY METER POCT mg/dL 11:28 AM FARM SERVICE ADVISER POC Specimen Anatomical Collection Method Collection Time Receive d Time (Source) Location / / Volume Laterality Blood BLOOD SPECIMEN / 10/12/2021 11:22 10/12/ 021 Unknown AM FARM SERVICE ADVISER 11:28 AM FARM SERVICE ADVISER Lesly TALBOT POCT Performing Organization Address City/State/ZIP Code Phon [place] [address] Care Lab [address] Lab (1st floor, no room number) documented in this encounter Visit Diagnoses Diagnosis Lipoma of torso - Primary documented in this encounter Administered Medications Inactive Administered Medications - up to 3 most recent administrations Medication Order MAR Action Action Date Dose Rate Site ePHEDrine injection 25 mg Given 10/12/2021 4:10 PM FARM SERVICE ADVISER 25 mg 25 mg, Intramuscular, ONCE, On [...] ringers infusion New Bag 10/12/2021 4:17 PM FARM SERVICE ADVISER 100 mL/hr at 100 mL/hr, Intravenous, CONTINUOUS, Continue until IV catheter is weaned, PACU/Phase II, Starting on Mon10/12/21 at 1530, Until Mon10/12/21 at 1930 meperidine (DEMEROL) injection 12.5 mg 12.5 mg, Intravenous, EVERY 15 MIN PRN, post anesthesia shivering, Starting on Mon10/12/21 at 1529, For 2 doses, PACU/Phase II ondansetron (ZOFRAN) injection 4 mg Given 10/12/2021 3:44 PM FARM SERVICE ADVISER 4 mg 4 mg, Intravenous, EVERY 30 [...] promethazine (PHENERGAN) intraMUSCULAR Given 10/12/2021 4:11 PM FARM SERVICE ADVISER 25 mg injection 25 mg 25 mg, Intramuscular, ONCE, On Mon10/12/21 at 1630, For 1 dose, Preferred route of administration; administer as a deep IM injection. May cause pain at injection site., PACU/Phase II documented in this encounter Active and Recently Administered Medications Times are shown in FARM SERVICE ADVISER. Scheduled Medication Order 10/10/2021 10/11/2021 10/12/2021 bupivacaine 0.25 % - EPINEPHrine 1:200,000 (PF) injection 75 mg 1330 (Canceled Entry - Provider: Orders Generic Provider - Comment: Automatically canceled at discontinue of medication order) 75 mg (30 mL), Intradermal, ONCE, On Mon10/12/21 at 1330, For 1 dose, Intrapartum ePHEDrine injection 25 mg (COMPLETED) 1610 (Given - Provider: Kristy Ramos, AMINAH) 25 mg, Intramuscular, ONCE, On Mon10/12/21 at [...] 1617 ( New Bag - Provider: Florence Pham RN) at 100 mL/hr, Intravenous, CONTINUOUS, C ontinue until IV catheter is weaned, PACU/Phase II, Starting on Mon10/12/21 at 1530, Until Mon10/12/21 at 1930 PRE OP antibiotics NOT needed for this surgical procedure. (CAN ELED) 1312 (Given - Provider: Ni Landry APRN CONDUCTOR YARD) CONTINUOUS, Starting on Mon10/12/21 at 1200, Until [...] Group 1) 1544 (Given - Provider: Kristy Ramos, AMINAH) 4 mg, Intravenous, EVERY 30 MIN PRN, [...] as of this encounter Care Teams Supervisor Screen Printing Relationship Specialty Start Date End Date Aydee Burton, PCP - General Nurse Practitioner - 05/17/21 PRODUCTION EXPEDITER [facility] Family [address] [place] [address] [phone] Aydee Burton, Assigned PCP 04/28/21 PRODUCTION EXPEDITER WOOD TOOL MAKER [address] [place], [place] [address] Erwin Louisa Grisel, Assigned Neuroscience 07/11/21 PRODUCTION EXPEDITER WOOD TOOL MAKER Provider [address] [place], [place] [address] Se Levy, Lead Bill Hiker 08/05/21 05/12/22 PREKINDERGARTEN TEACHERClari Ordonez Pharmacist Pharmacist 08/06/21 06/07/22 [facility] [address] [place], [place] [address] [place], Assigned Sleep 08/01/21 Angel Turcios, Provider [address] [place], [place] [address] Lesly Celaya MD Assigned Surgical 09/05/[address] Provider [place], [place] [phone] Elizabeth Mcintyre CNM Assigned OBGYN 09/05/21 11/06/21 [id number] [facility] [place] [place] [phone] Tawana Patel MA [facility] 09/30/21 Worker Mago Swift [facility] Lead Bill Hiker Produce Specialist - 08/05/21 Clinical documented as of this encounter
--- OUTSIDE RECORDS SUMMARY | 2022-10-21 09:03 | XMS_ITS | Encounter Summary ---
:1980 Author Organization [place] Address [address] [place] [address] Care Team Providers Name Role Phone Aydee Burton E COMMERCE STRATEGIST SCIENTIFIC RESEARCH MANAGER Primary Care Provider [phone] Aydee Burton E COMMERCE STRATEGIST SCIENTIFIC RESEARCH MANAGER Unavailable [phone] Louisa Hood E COMMERCE STRATEGIST SCIENTIFIC RESEARCH MANAGER Unavailable [phone] Se Levy MAINTENANCE ASSOCIATE Unavailable Unavailable Clari Ruiz [facility] Unavailable [phone] Angel Hannah MD Unavailable Lesly Celaya MD Unavailable Elizabeth Mcintyre CN Unavailable Tawana Patel MA Unavailable Unavailable Mago Swift CLARIFYING PLANT OPERATOR Unavailable Encounter Details Date Type Department [...] How often do you attend alevism or tenriism services? Never 08/05/2021 Do you [...] at Date Recorded Female 11/09/2021 7:53 PM ICT PROGRAMMER COVID-19 Exposure Response Date Recorded In the last month, have you been in contact with No / Unsure 10/06/2021 3:19 PM ICT PROGRAMMER someone who was confirmed or suspected to have Coronavirus / COVID-19? documented as of this encounter Plan of Treatment Upcoming Encounters Date Type Specialty Care Team Description 10/21/2022 Office Visit Pulmonology Obdulio Barrera MD [address] [place] [address] (Wo rk) 10/25/2022 PRE VISIT Charo Carter MD Previsit [address] [place] [address] (Wo rk) 10/25/2022 Office Visit Charo Carter MD [address] [place] [address] (Wo rk) 10/25/2022 Office Visit ENT Provider, Jeannette Ent Dysphonia Embossograph Operator 10/25/2022 Virtual Visit Pain & [place] [address] [place], [place] [address] 10/28/2022 Appointment Speech Therapy Anabel Chew, LAB TECHNICIAN [address] [phone] (Wo rk) 11/17/2022 Appointment Speech Therapy Anabel Chew, LAB TECHNICIAN [address] 821015 (Wo rk) 12/01/2022 Office Visit Pain & [place] [address] [place], [place] [address] (Wo rk) 12/23/2022 Office Visit Neurology Colby Yeung MD [address] [place] [phone] (Wo rk) documented as of this encounter Visit Diagnoses Not on filedocumented in this encounter Additional Health Concerns Assessment Noted Time PHQ-9 Depression Total Score: 22 06/28/2021 7:03 AM CD T documented as of this encounter Care Teams Hand Meat Salter Relationship Specialty Start Date End Date Aydee Burton, PCP - General Nurse Practitioner - 05/17/21 E COMMERCE STRATEGIST SCIENTIFIC RESEARCH MANAGER Family [address] [place], [place] [phone] Aydee Burton, Assigned PCP 04/28/21 E COMMERCE STRATEGIST SCIENTIFIC RESEARCH MANAGER [address] [place], [place] [phone] Louisa Hood, Assigned Neuroscience 07/11/21 E COMMERCE STRATEGIST SCIENTIFIC RESEARCH MANAGER Provider [address] [place] [address] [phone] Se Levy, Lead Pole Frame Construction Worker 08/05/21 05/12/22 Clari Francois Pharmacist Pharmacist 08/06/21 06/07/22 Jocelyn, [facility] [address] [place] [address] [place], Assigned Sleep 08/01/21 Angel Turcios, Provider [address] [place], [place] [phone] Lesly Celaya MD Assigned Surgical 09/05/[address] Provider [place], [place] [phone] Elizabeth Mcintyre CNM Assigned OBGYN 09/05/21 11/06/[id number] Provider [place], [place] [phone] Tawana Patel MA [facility] 09/30/21 Worker Mago Swift LICSW Lead Pole Frame Construction Worker Tattooer - 08/05/21 Clinical documented as of this encounter
--- OUTSIDE RECORDS SUMMARY | 2022-10-21 09:03 | XMS_ITS | Encounter Summary ---
:1980 Author Organization [place] Address [address] [place] [address] Care Team Providers Name Role Phone Aydee Burton TOOLING MECHANIC RN MDS COORDINATOR Primary Care Provider [phone] Aydee Burton TOOLING MECHANIC RN MDS COORDINATOR Unavailable [phone] Louisa Hood TOOLING MECHANIC RN MDS COORDINATOR Unavailable [phone] Se Levy INTEGRATION TECHNICIAN Unavailable Unavailable Clari Ruiz [facility] Unavailable [phone] Angel Hannah MD Unavailable Lesly Celaya MD Unavailable Elizabeth Mcintyre CN Unavailable Tawana Patel MA Unavailable Unavailable Mago Swift TOBACCO ROLLER Unavailable Encounter Details Date Type Department Care [...] How often do you attend pentecostalism or pentecostalism services? Never 08/05/2021 Do you [...] at Date Recorded Female 11/09/2021 7:53 PM TECHNICIAN PLANT AND MAINTENANCE COVID-19 Exposure Response Date Recorded In the last month, have you been in contact with No / Unsure 10/08/2021 11:08 AM TECHNICIAN PLANT AND MAINTENANCE someone who was confirmed or suspected to have Coronavirus / COVID-19? documented as of this encounter Plan of Treatment Upcoming Encounters Date Type Specialty Care Team Description 10/21/2022 Office Visit Pulmonology Obdulio Barrera MD [address] [place] [address] (Wo rk) 10/25/2022 PRE VISIT Charo Carter MD Previsit [address] [place] [address] (Wo rk) 10/25/2022 Office Visit Charo Carter MD [address] [place] [address] (Wo rk) 10/25/2022 Office Visit ENT Provider, Jeannette Ent Dysphonia Inclinometer Tester 10/25/2022 Virtual Visit Pain & [place] [address] [place], [place] [address] 10/28/2022 Appointment Speech Therapy Anabel Chew, GLASS CUTTING MACHINE FEEDER [address] [address] (Wo rk) 11/17/2022 Appointment Speech Therapy Anabel Chew, GLASS CUTTING MACHINE FEEDER [address] [phone] (Wo rk) 12/01/2022 Office Visit Pain & [place] [address] [place], [place] [address] (Wo rk) 12/23/2022 Office Visit Neurology Colby Yeung MD [address] [place] [phone] (Wo rk) documented as of this encounter Visit Diagnoses Not on filedocumented in this encounter Additional Health Concerns Assessment Noted Time PHQ-9 Depression Total Score: 22 06/28/2021 7:03 AM CD T documented as of this encounter Care Teams Notcher Relationship Specialty Start Date End Date Aydee Burton, PCP - General Nurse Practitioner - 05/17/21 TOOLING MECHANIC RN MDS COORDINATOR Family [address] [place], [place] [phone] Aydee Burton, Assigned PCP 04/28/21 TOOLING MECHANIC RN MDS COORDINATOR [address] [place], [place] [phone] Louisa Hood, Assigned Neuroscience 07/11/21 TOOLING MECHANIC RN MDS COORDINATOR Provider [address] [place] [phone] Se Levy, Lead Rn Lab 08/05/21 05/12/22 Clari Francois Pharmacist Pharmacist 08/06/21 06/07/22 Jocelyn, [facility] [address] [place] [address] [place], Assigned Sleep 08/01/21 Angel Turcios, Provider [address] [place], [place] [phone] Lesly Celaya MD Assigned Surgical 09/05/[address] Provider [place], [place] [phone] Elizabeth Mcintyre CNM Assigned OBGYN 09/05/21 11/06/[id number] Provider [place], [place] [phone] Tawana Patel MA Community [facility] 09/30/21 Worker Mago Swift LICSW Lead Rn Lab Crab Meat Processor - 08/05/21 Clinical documented as of this encounter
--- OUTSIDE RECORDS SUMMARY | 2022-10-21 09:03 | XMS_ITS | Encounter Summary ---
:1980 Author Organization [place] Address [address] [place] [address] Care Team Providers Name Role Phone Aydee Burton POLICE COMMUNICATIONS DISPATCHER CADASTRAL ENGINEER Primary Care Provider [phone] Aydee Burton POLICE COMMUNICATIONS DISPATCHER CADASTRAL ENGINEER Unavailable [phone] Louisa Hood POLICE COMMUNICATIONS DISPATCHER CADASTRAL ENGINEER Unavailable [phone] Se Levy MOISTURE MACHINE TENDER Unavailable Unavailable Clari Ruiz [facility] Unavailable [phone] Agnel Hannah MD Unavailable Lesly Celaya MD Unavailable Elizabeth Mcintyre CN Unavailable Tawana Patel MA Unavailable Unavailable Mago Swift COOK CHIEF Unavailable Encounter Details Date Type Department Care [...] How often do you attend confucianism or anglican services? Never 08/05/2021 Do you [...] at Date Recorded Female 11/09/2021 7:53 PM PASSENGER REPRESENTATIVE COVID-19 Exposure Response Date Recorded In the last month, have you been in contact with No / Unsure 10/05/2021 8:10 AM PASSENGER REPRESENTATIVE someone who was confirmed or suspected to have Coronavirus / COVID-19? documented as of this encounter Plan of Treatment Upcoming Encounters Date Type Specialty Care Team Description 10/21/2022 Office Visit Pulmonology Obdulio Barrera MD [address] [place] [address] (Wo rk) 10/25/2022 PRE VISIT Charo Carter MD Previsit [address] [place] [address] (Wo rk) 10/25/2022 Office Visit Charo Carter MD [address] [place] [address] (Wo rk) 10/25/2022 Office Visit ENT Provider, Jeannette Ent Dysphonia Coupon Manifest Clerk 10/25/2022 Virtual Visit Pain & [place] [address] [place], [place] [address] 10/28/2022 Appointment Speech Therapy Anabel Chew, CASH CLERK [address] [phone] (Wo rk) 11/17/2022 Appointment Speech Therapy Anabel Chew, CASH CLERK [address] [phone] (Wo rk) 12/01/2022 Office Visit Pain & [place] [address] [place], [place] [address] (Wo rk) 12/23/2022 Office Visit Neurology Colby Yeung MD [address] [place] [address] (Wo rk) documented as of this encounter Visit Diagnoses Not on filedocumented in this encounter Additional Health Concerns Assessment Noted Time PHQ-9 Depression Total Score: 22 06/28/2021 7:03 AM CD T documented as of this encounter Care Teams Division Order Analyst Relationship Specialty Start Date End Date Aydee Burton, PCP - General Nurse Practitioner - 05/17/21 POLICE COMMUNICATIONS DISPATCHER CADASTRAL ENGINEER Family [address] [place], [place] [phone] Aydee Burton, Assigned PCP 04/28/21 POLICE COMMUNICATIONS DISPATCHER CADASTRAL ENGINEER [address] [place], [place] [phone] Louisa Hood, Assigned Neuroscience 07/11/21 POLICE COMMUNICATIONS DISPATCHER CADASTRAL ENGINEER Provider [address] [place] [phone] Se Levy, Lead Credit Control Administrator 08/05/21 05/12/22 Clari Francois Pharmacist Pharmacist 08/06/21 06/07/22 Jocelyn [facility] [address] [place], [place] [phone] [place], Assigned Sleep 08/01/21 Angel Turcios, Provider [address] [place], [place] [phone] Lesly Celaya MD Assigned Surgical 09/05/[address] [place] [address] Elizabeth Mcintyre CNM Assigned OBGYN 09/05/21 11/06/21 [address] [facility] Provider [place], [place] [phone] Tawana Patel MA Community Health 09/30/21 Worker Mago Swift LICSW Lead Credit Control Administrator Mother [place] - 08/05/21 Clinical documented as of this encounter
--- OUTSIDE RECORDS SUMMARY | 2022-10-21 09:03 | XMS_ITS | Encounter Summary ---
:1980 Author Organization [facility] Address [address] [place] [address] Care Team Providers Name Role Phone Aydee Burton COREMAKER SUPERVISOR BENCH HAND Primary Care Provider Aydee Burton COREMAKER SUPERVISOR BENCH HAND Unavailable [phone] Louisa Hood COREMAKER SUPERVISOR BENCH HAND Unavailable [phone] Se Levy [address] 12 TUTOR Unavailable Unavailable Clari Ruiz [facility] Unavailable [phone] Angel Hannah MD Unavailable Lesly Celaya MD Unavailable Elizabeth Mcintyre CN Unavailable Tawana Patel MA Unavailable Unavailable Mago Swift DRESS FINISHER Unavailable Encounter Details Date Type Department Care [...] How often do you attend hinduism or congregational services? 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/2021 7:53 PM CUSTOMER CARE MANAGER COVID-19 Exposure Response Date Recorded In the last month, have you been in contact with No / Unsure 10/12/2021 10:55 AM CUSTOMER CARE MANAGER someone who was confirmed or suspected to have Coronavirus / COVID-19? documented as of this encounter Plan of Treatment Upcoming Encounters Date Type Specialty Care Team Description 10/21/2022 Office Visit Pulmonology Obdulio Barrera MD [address] [place] [address] (Wo rk) 10/25/2022 PRE VISIT Charo Carter MD Previsit [address] [place] [address] (Wo rk) 10/25/2022 Office Visit Charo Carter MD [address] [place] [address] (Wo rk) 10/25/2022 Office Visit ENT Provider, Jeannette Ent Dysphonia Fire Safety Inspector 10/25/2022 Virtual Visit Pain & [place] [address] [place], [place] [address] 10/28/2022 Appointment Speech Therapy Anabel Chew, ENTRY LEVEL ELECTRICIAN [address] [address] (Wo rk) 11/17/2022 Appointment Speech Therapy Anabel Chew, ENTRY LEVEL ELECTRICIAN [address] 779385 (Wo rk) 12/01/2022 Office Visit Pain & [place] [address] [place], [place] [address] (Wo rk) 12/23/2022 Office Visit Neurology Colby Yeung MD [address] [place] [phone] (Wo rk) documented as of this encounter Visit Diagnoses Not on filedocumented in this encounter Additional Health Concerns Assessment Noted Time PHQ-9 Depression Total Score: 22 06/28/2021 7:03 AM CD T documented as of this encounter Care Teams Investment Specialist Relationship Specialty Start Date End Date Aydee Burton, PCP - General Nurse Practitioner - 05/17/21 COREMAKER SUPERVISOR BENCH HAND Family [address] [place], [place] [phone] Aydee Burton, Assigned PCP 04/28/21 COREMAKER SUPERVISOR BENCH HAND [address] [place], [place] [phone] Louisa Hood, Assigned Neuroscience 07/11/21 COREMAKER SUPERVISOR BENCH HAND Provider [address] [place] [address]285 Se Levy, Lead Bleach Tester 08/05/21 05/12/22 Clari Francois Pharmacist Pharmacist 08/06/21 06/07/22 Jocelyn, [facility] [address] [place] [address] [place], Assigned Sleep 08/01/21 Angel Turcios, Provider [address] [place], [place] [phone] Lesly Celaya MD Assigned Surgical 09/05/[address] Provider [place], [place] [phone] Elizabeth Mcintyre CNM Assigned OBGYN 09/05/21 11/06/[address] Provider [place], [place] [phone] Tawana Patel MA [facility] 09/30/21 Worker Mago Swift LICSW Lead Bleach Tester Detail Manager - 08/05/21 Clinical documented as of this encounter
--- OUTSIDE RECORDS SUMMARY | 2022-10-21 09:03 | XMS_ITS | Encounter Summary ---
:1980 Author Organization [facility] Address [address] [place] [address] Care Team Providers Name Role Phone Aydee Burton OCEANOGRAPHIC METEOROLOGIST BUILDING STONECUTTER Primary Care Provider [phone] Aydee Burton OCEANOGRAPHIC METEOROLOGIST BUILDING STONECUTTER Unavailable [phone] Louisa Hood OCEANOGRAPHIC METEOROLOGIST BUILDING STONECUTTER Unavailable [phone] Se Levy AIRCRAFT SKIN BURNISHER Unavailable Unavailable Clari Ruiz [facility] Unavailable [phone] Angel Hannah MD Unavailable Lesly Celaya MD Unavailable Elizabeth Mcintyre CN Unavailable Tawana Patel MA Unavailable Unavailable Mago Swift SPEECH PATHOLOGIST Unavailable Reason for Visit Auth/Cert Specialty Diagnoses [...] LESION TRUNK/ARM/LEG 2.1-3.0 [address] HC EXC BENIGN SKIN LESION TR UNK/ARM/LEG 3.1-4.0 CM HC EXC BENIGN SKIN LESION TRUNK/ARM/LEG >4 CM HC EXC MALIG SKIN LESION TRUNK/ARM/LEG <=0.5 CM HC EXC MALIG SKIN LESION TRUNK/ARM/LEG 0.6-1.0 CM HC EXC MALIG SKIN LESION TRUNK/ARM/LEG 1.1-2.0 [place] [address] HC EXC MALIG SKIN LESION SUSANA NK/ARM/LEG [...] Expiration Date Visits Requ ested Visits Authorized [id number] 1 1 Encounter Details Date Type Department Care Team Description 10/12/2021 Anesthesia Event [facility] Ricardo cortes MD [facility] ANESTHESIA [address] [facility] [address] [place] [address] PeriOp Services Derian Pal APRN [facility] ANESTHESIA [address] [place] [address] [address] [place] [address] Anesthesia Record Procedure Summary Procedure [...] recorded are pre- induction. Ni Davies APRN MARKETING ADMIN 1319 An Induction 1319 MD Present 1321 [...] Electronically s igned by Ni Davies APRN MARKETING ADMIN on Sep 3:20 PM Name Total midazolam [...] 10/12/21 1724 by Left, Dorsal; Hand; Elizabeth Tay, Angela Ramos, None; Tolerated well RN RN ETT Placement Date: 10/12/21 1332 by 10/12/21 1515 b y 10/12/21; Placement Ni Landry LandryNi omalley Time: 1332 (created ELADIO Espino CRNA, APRN CR NA via procedure documentation); Mask Ventilation: 1; Induction Type: Intravenous; Ease of Intubation: Easy; Technique: Direct laryngoscopy; ETT Type: Single; Tube Size: 7 mm; DL Blade Size: Machado 2; Grade View: 1; Adjucts: Stylet; Placement Person: MARKETING ADMIN; Attempts: 1; Depth: 22 cm documented in [...] How often do you attend islam or jewish services? Never 08/05/2021 Do you [...] with No / Unsure 10/12/2021 10:55 AM VIDEO SPECIALIST someone who was confirmed or [...] Mcintyre MD October 12, 2021 4:00 PM O SPECIALIST Anesthesia Procedure Notes - Ni Landry APRN MARKETING ADMIN - 10/12/2021 1:32 PM CSTAssociated Order(s): Airway Airway Patient location during procedure: OR Procedure Start/Stop Times: 10/12/2021 1:21 PM Staff - MARKETING ADMIN: Ni Davies APRN MARKETING ADMIN Performed By: MARKETING ADMIN Consent for Airway Urgency: elective Indications and [...] tape Ease of procedure: easy Dentition: Intact O SPECIALIST Anesthesia Preprocedure Evaluation - Ricardo Mcintyre MD [...] GENITOURINARY SURGERY Tubal ligation and ablasion ??? LEATHER SPONGER SURGERY not sure tubal ligation and ablasion [...] and realistic alternatives discussed. Questions answered and patient/ambulatory services representative(s) expressed understanding. - Discussed: - Discussed with: Patient - Extended Intubation/Ventilatory Support Discussed: No. - Patient is DNR/DNI Status: No Use of blood products discussed: No . Postoperative Care Pain management: IV analgesics. PONV prophylaxis: Ondansetron (or other 5HT-3), Dexamethasone or Solumedrol Comments: Ricardo Mcintyre MD O SPECIALIST documented in this encounter Miscellaneous Notes Anesthesia Care Transfer Note - Ni Landry APRN MARKETING ADMIN - 10/12/2021 3:20 PM CST Patient: Marta Hill Procedure: Procedure(s): [...] APRN CRNA October 12, 2021 3:20 PM O SPECIALIST documented in this encounter Plan of Treatment Upcoming Encounters Date Type Specialty Care Team Description 10/21/2022 Office Visit Pulmonology Obdulio Barrera MD [address] [place] [address] (Wo rk) 10/25/2022 PRE VISIT ENT Charo Burton MD Previsit [address] [place], [place] [address] (Wo rk) 10/25/2022 Office Visit ENT Charo Burton MD [address] [place], [place] [address] (Wo rk) 10/25/2022 Office Visit ENT Provider, Ent Dysphonia Laborer [place] 10/25/2022 Virtual Visit Pain & [place] [address] [place], [place] [address] 10/28/2022 Appointment Speech Therapy Anabel Chew, CAT WAGON OPERATOR [address] [address]50[address] (Wo rk) 11/17/2022 Appointment Speech Therapy Anabel Chew, CAT WAGON OPERATOR [address] 769605 (Wo rk) 12/01/2022 Office Visit Pain & [place] [address] [place], [place] [address] (Wo rk) 12/23/2022 Office Visit Neurology Colby Yeung MD [address] [place], [place] [address] (Wo rk) documented as of this encounter Procedures Procedure Name Priority Date/Time Associated Comments Diagnosis ANE AIRWAY ETT Routine 10/12/2021 1:32 PM Results for this PERFORMABLE VIDEO SPECIALIST procedure are i n the results section. documented in this encounter Results ANE AIRWAY ETT PERFORMABLE (10/12/2021 1:32 PM VIDEO SPECIALIST) Narrative Ni Landry APRN MARKETING ADMIN - 10/12 1:32 PM VIDEO SPECIALIST Ni Davies APRN MARKETING ADMIN ? 10/12/2021 ??1:32 PM Airway ? Patient location during procedure : OR ? Procedure Start/Stop Times: 10/12 1:21 PM Staff - ? MARKETING ADMIN: Ni Davies APRN MARKETING ADMIN ? Performed By: MARKETING ADMIN Consent for Airway ? Urgency: elective Indications [...] easy ? Dentition: Intact Ricardo Mcintyre MD [place] ANESTHESIA documented in this encounter Visit Diagnoses Not on filedocumented in this encounter Administered Medications Inactive Administered Medications - up to 3 most recent administrations Medication Order MAR Action Action Date Dose Rate Site dexamethasone (DECADRON) injection Given 10/12/2021 1:19 PM VIDEO SPECIALIST 4 mg Intravenous, PRN, Administer over 1 Minutes, Starting on Mon10/12/21 at 1319, Anesthesia Intra-op fentaNYL (PF) (SUBLIMAZE) injection Given 10/12/2021 1:19 PM VIDEO SPECIALIST 100 mcg Intravenous, PRN, Administer over 3-5 Minutes, Starting on Mon10/12/21 at 1319, Anesthesia Intra-op HYDROmorphone (DILAUDID) injection Given 10/12/2021 2:56 PM VIDEO SPECIALIST 1 mg Intravenous, PRN, Starting on Mon10/12/21 at 1456, Anesthesia Intra-op ketorolac (TORADOL) injection Given 10/12/2021 2:57 PM VIDEO SPECIALIST 30 mg Intravenous, PRN, Administer over 2 Minutes, Starting on Mon10/12/21 at 1457, Anesthesia Intra-op lactated ringers infusion New Bag 10/12/2021 1:12 PM VIDEO SPECIALIST Intravenous, CONTINUOUS PRN, Anesthesia Intra-op, Starting on Mon10/12/21 at 1312, Until Mon10/12/21 at 1520 lidocaine 1 % injection Given 10/12/2021 1:19 PM VIDEO SPECIALIST 50 mg Intravenous, PRN, Starting on Mon10/12/21 at 1319, Anesthesia Intra-op lidocaine 4 % solution Given 10/12/2021 1:21 PM VIDEO SPECIALIST 4 mLs Topical, PRN, Starting on Mon10/12/21 at 1321, Anesthesia Intra-op midazolam (VERSED) injection Given 10/12/2021 1:09 PM VIDEO SPECIALIST 2 mg Intravenous, Administer over 2 Minutes, PRN, Starting on Mon10/12/21 at 1309, Anesthesia Intra-op ondansetron (ZOFRAN) injection Given 10/12/2021 1:27 PM VIDEO SPECIALIST 4 mg Intravenous, PRN, Administer over 2-5 Minutes, Starting on Mon10/12/21 at 1327, Anesthesia Intra-op PRE OP antibiotics NOT needed for this Given 10/12/2021 1:12 PM VIDEO SPECIALIST 1 each surgical procedure. CONTINUOUS, Starting on Mon10/12/21 at 1200, Until Mon10/12/21 at 1516, PRE OP antibiotics NOT needed for this surgical procedure., Pre-procedure propofol (DIPRIVAN) injection 10 mg/mL v ial Given 10/12/2021 1:19 PM VIDEO SPECIALIST 160 mg Intravenous, PRN, Starting on Mon10/12/21 at 1319, Anesthesia Intra-op rocuronium injection Given 10/12/2021 1:19 PM VIDEO SPECIALIST 50 mg Intravenous, PRN, Starting on Mon10/12/21 at 1319, Anesthesia Intra-op sugammadex (BRIDION) injection Given 10/12/2021 3:10 PM VIDEO SPECIALIST 200 mg Intravenous, PRN, Starting on Mon10/12/21 at 1510, Anesthesia Intra-op documented in this encounter Additional Health Concerns Assessment Noted Time PHQ-9 Depression Total Score: 22 06/28/2021 7:03 AM CD T documented as of this encounter Care Teams Torpedo Man Relationship Specialty Start Date End Date Aydee Burton, PCP - General Nurse Practitioner - 05/17/21 OCEANOGRAPHIC METEOROLOGIST BUILDING STONECUTTER Family [address] [place], [place] [phone] Aydee Burton, Assigned PCP 04/28/21 OCEANOGRAPHIC METEOROLOGIST BUILDING STONECUTTER [address] [place], [place] [phone] Louisa Hood, Assigned Neuroscience 07/11/21 OCEANOGRAPHIC METEOROLOGIST BUILDING STONECUTTER Provider [address] [place], [place] [phone] Se Levy, Lead Stonemason Supervisor 08/05/21 05/12/22 AIRCRAFT SKIN BURNISHERClari Ordonez Pharmacist Pharmacist 08/06/21 06/07/22 Jocelyn, [facility] [address] [place], [place] [phone] [place], Assigned Sleep 08/01/21 Angel Turcios, Provider [address] [place], [place] [phone] Lesly Celaya MD Assigned Surgical 09/05/[address] Provider [place], [place] [phone] Elizabeth Mcintyre CNM Assigned OBGYN 09/05/21 11/06/21 [address] [facility] [place] [address] Tawana Patel MA [facility] Health 09/30/21 Worker Mago Swift SPEECH PATHOLOGIST Lead Stonemason Supervisor Equipment Maintenance Supervisor - 08/05/21 Clinical documented as of this encounter
--- OUTSIDE RECORDS SUMMARY | 2022-10-21 09:03 | XMS_ITS | Encounter Summary ---
:1980 Author Organization [facility] Address [address] [facility] [place] [address] Care Team Providers Name Role Phone Aydee Burton MOTOR CARRIER INSPECTOR SUPERVISOR HYDROCHLORIC AREA Primary Care Provider Aydee Burton MOTOR CARRIER INSPECTOR SUPERVISOR HYDROCHLORIC AREA Unavailable [phone] Louisa Hood MOTOR CARRIER INSPECTOR SUPERVISOR HYDROCHLORIC AREA Unavailable [phone] Se Levy PEACE OFFICER Unavailable Unavailable Clari Ruiz [facility] Unavailable [phone] Angel Hannah MD Unavailable Lesly Celaya MD Unavailable Elizabeth Mcintyre CN Unavailable Tawana Patel MA Unavailable Unavailable Ramses Mcpherson MD Unavailable [phone] Mago Swift ELOCUTION TEACHER Unavailable Encounter Details Date Type Department Care Team Description 10/15/2021 Medical Correspondence [facility] Scan, PAIN MANAGEMENT Health Info Mgmt Non-Provider PATIENT QUE EVARISTO [facility] [address] [place] [phone] Social History Tobacco Use Types Packs/Day Years [...] How often do you attend taoism or judaism services? Never 08/05/2021 Do you [...] at Date Recorded Female 11/09/2021 7:53 PM SENSORY SCIENTIST COVID-19 Exposure Response Date Recorded In the last month, have you been in contact with No / Unsure 01/07/2022 2:29 PM SENSORY SCIENTIST someone who was confirmed or suspected to have Coronavirus / COVID-19? documented as of this encounter Plan of Treatment Upcoming Encounters Date Type Specialty Care Team Description 10/21/2022 Office Visit Pulmonology Obdulio Barerra MD [address] [place] [address] (Wo rk) 10/25/2022 PRE VISIT ENT Charo Burton MD Previsit [address] [place] [address] (Wo rk) 10/25/2022 Office Visit ENT Charo Burton MD [address] [place] [address] (Wo rk) 10/25/2022 Office Visit ENT Provider, Ent Dysphonia Healthcare Advisory Services Manager 10/25/2022 Virtual Visit Pain & [place] [address] [place], [place] [address] 10/28/2022 Appointment Speech Therapy Anabel Chew, SEISMIC INTERPRETER [address] [address] (Wo rk) 11/17/2022 Appointment Speech Therapy Anabel Chew, SEISMIC INTERPRETER [address] [phone] (Wo rk) 12/01/2022 Office Visit Pain & [place] [address] [place], [place] [address] (Wo rk) 12/23/2022 Office Visit Neurology Colby Yeung MD [address] [place], [place] [address] (Wo rk) documented as of this encounter Visit Diagnoses Not on filedocumented in this encounter Additional Health Concerns Assessment Noted Time PHQ-9 Depression Total Score: 22 06/28/2021 7:03 AM CD T documented as of this encounter Care Teams [place] Police Lieutenant Relationship Specialty Start Date End Date Aydee Burton, PCP - General Nurse Practitioner - 05/17/21 MOTOR CARRIER INSPECTOR SUPERVISOR HYDROCHLORIC AREA Family [address] [place] [phone] Aydee Burton, Assigned PCP 04/28/21 MOTOR CARRIER INSPECTOR SUPERVISOR HYDROCHLORIC AREA [address] [place], [place] [address] Louisa Hood, Assigned Neuroscience 07/11/21 MOTOR CARRIER INSPECTOR SUPERVISOR HYDROCHLORIC AREA Provider [address] [place] [address] Se Levy, Lead Reinsurance Claim Analyst 08/05/21 05/12/22 PEACE OFFICERClari Ordonez Pharmacist Pharmacist 08/06/21 06/07/22 Jocelyn, [facility] [address] [place] [address] [place], Assigned Sleep 08/01/21 Angel Turcios, Provider [address] [place], [place] [phone] Lesly Celaya MD Assigned Surgical 09/05/[address] [place] [place] [address] Elizabeth Mcintyre CNM Assigned OBGYN 09/05/21 11/06/[address] Provider [place], [place] [phone] Tawana Patel MA [facility] Health 09/30/21 Worker Ramses Mcpherson Assigned OBGYN 11/07/21 MD Onesimo Provider [address] [place], [place] [address] Mago Swift, [facility] Lead Reinsurance Claim Analyst [employer] Program Coordinator - 08/05/21 Clinical documented as of this encounter
--- OUTSIDE RECORDS SUMMARY | 2022-10-21 09:03 | XMS_ITS | Encounter Summary ---
:1980 Author Organization [facility] Address [address] [place] [address] Care Team Providers Name Role Phone Aydee Burton THEATER TEACHER BLOW UP OPERATOR Primary Care Provider Aydee Burton THEATER TEACHER BLOW UP OPERATOR Unavailable [phone] Louisa Hood THEATER TEACHER BLOW UP OPERATOR Unavailable [phone] Se Levy DIRECTOR OF HOME CARE HOSPICE Unavailable Unavailable Clari Ruiz [facility] Unavailable [phone] Angel Hannah MD Unavailable Lesly Celaya MD Unavailable Elizabeth Mcintyre CN Unavailable Tawana Patel MA Unavailable Unavailable Mago Swift SHUTTLECOCK FEATHER TRIMMER Unavailable Encounter Details Date Type Department Care Team Description 10/27/2021 [facility] Mario Castellon [facility] Noy Machado PA-C [address] [place] [address] [place], [place] [phone] Social History Tobacco Use Types Packs/Day Years [...] How often do you attend yazidism or church services? Never 08/05/2021 Do you [...] at Date Recorded Female 11/09/2021 7:53 PM BLANKING MACHINE OPERATOR COVID-19 Exposure Response Date Recorded In the last month, have you been in contact with No / Unsure 10/12/2021 10:55 AM BLANKING MACHINE OPERATOR someone who was confirmed or suspected to have Coronavirus / COVID-19? documented as of this encounter Miscellaneous Notes Telephone Encounter - Mario Castellon PA-C - 10/27/2021 3:38 PM BLANKING MACHINE OPERATOR [facility] Postoperative Call Note: Marta Kim Nadeempreeti was called for an update regarding her recovery. She underwent a excision of multiple subcutaneous masses by Dr. Celaya on 10/12/21. Today she tells me she is doing [...] send letter to: Primary Care Provider (PCP) KING MACHINE OPERATOR documented in this encounter Plan of Treatment Upcoming Encounters Date Type Specialty Care Team Description 10/21/2022 Office Visit Pulmonology Obdulio Barrera MD [address] [address] (Wo rk) 10/25/2022 PRE VISIT Charo Carter MD Previsit [address] [place], [place] [phone] (Wo rk) 10/25/2022 Office Visit Charo Carter MD [address] [place], [place] [address] (Wo rk) 10/25/2022 Office Visit ENT Provider, Ent Dysphonia Commercial Real Estate Paralegal 10/25/2022 Virtual Visit Pain & Palliative [place] [address] [place], [place] [address] 10/28/2022 Appointment Speech Therapy Anabel Chew, CELINE [address] [address] (Wo rk) 11/17/2022 Appointment Speech Therapy Anabel Chew SLP [address], [place] [address] (Wo rk) 12/01/2022 Office Visit Pain [place] [address] [facility] [address] [place], [place] [address] (Wo rk) 12/23/2022 Office Visit Neurology Colby Yeung MD [address] [facility] [place] [address] (Wo rk) documented as of this encounter Visit Diagnoses Not on filedocumented in this encounter Additional Health Concerns Assessment Noted Time PHQ-9 Depression Total Score: 22 06/28/2021 7:03 AM CD T documented as of this encounter Care Teams Freight Brake Operator Relationship Specialty Start Date End Date Aydee Burton, PCP - General Nurse Practitioner - 05/17/21 THEATER TEACHER BLOW UP OPERATOR Family [address] [place] [address] Aydee Burton, Assigned PCP 04/28/21 THEATER TEACHER BLOW UP OPERATOR [address] [place] [phone] Louisa Hood, Assigned Neuroscience 07/11/21 THEATER TEACHER BLOW UP OPERATOR Provider [address] [place], [place] [phone] Se Levy, Lead New Product Trainer 08/05/21 05/12/22 Clari Francois Pharmacist Pharmacist 08/06/21 06/07/22 JORDAN Banks [address] [facility] [address] [place] [address] [place], Assigned Sleep 08/01/21 Angel Tucrios, Provider [address] [place] [address] Lesly Celaya MD Assigned Surgical 09/05/[address] [place] [place] [address] Elizabeth Mcintyre CNM Assigned OBGYN 09/05/21 11/06/21 [address] [place] [address] Tawana Patel MA [facility] Health 09/30/21 Worker Mago Swift SHUTTLECOCK FEATHER TRIMMER Lead New Product Trainer Automatic Tire Tester - 08/05/21 Clinical documented as of this encounter
--- OUTSIDE RECORDS SUMMARY | 2022-10-21 09:03 | XMS_ITS | Encounter Summary ---
:1980 Author Organization [place] Address [address] [place] [address] Care Team Providers Name Role Phone Aydee Nam VENEER SANDER INFUSION PHARMACIST Primary Care Provider [phone] Aydee Nam VENEER SANDER INFUSION PHARMACIST Unavailable [phone] Louisa Hood VENEER SANDER INFUSION PHARMACIST Unavailable [phone] Se Levy SLIP COVER MAKER Unavailable Unavailable Clari Ruiz [facility] Unavailable [phone] Angel Hannah MD Unavailable Lesly Celaya MD Unavailable Elizabeth Mcintyre [facility] Unavailable Tawana Patel MA Unavailable Unavailable Mago Swift LEAD QUALITY CONTROL TECHNICIAN Unavailable Reason for Referral CV Testing (Routine) - Closed Specialty Diagnoses / Procedures Referred By Contact Refer red To Contact Diagnoses Shortness of breath Feeling of chest tightness Aydee Nam APRN Procedures Exercise Stress Test - Adult INFUSION PHARMACIST [address] [place] [address] Referral ID Status Reason Start Date Expiration Date Visits Requ ested Visits Authorized [id number] Closed 10/05/2021 10/05/2022 1 1 AGING OPERATOR Reason for Visit CV Testing (Routine) - Closed Specialty Diagnoses / Procedures Referred By Contact Refer red To Contact Diagnoses Shortness of breath Feeling of chest tightness Aydee Nam APRN Procedures Exercise Stress Test - Adult INFUSION PHARMACIST [address] [place] [address] Referral ID Status Reason Start Date Expiration Date Visits Requ ested Visits Authorized [id number] Closed 10/05/2021 10/05/2022 1 1 Encounter Details Date Type Department Care Team Description 11/04/2021 Hospital Encounter [facility] Aydee Nam tness of breath; [facility] ELADIO Mendez Feeling o f chest tightness Heart Care INFUSION PHARMACIST [address] [facility] [address] [place], [place] [phone] [address] Social History Tobacco Use Types Packs/Day Years [...] How often do you attend mandaen or jew services? 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/2021 7:53 PM PACKAGING OPERATOR COVID-19 Exposure Response Date Recorded In the last month, have you been in contact with No / Unsure 11/04/2021 11:14 AM PACKAGING OPERATOR someone who was confirmed or suspected [...] missing something. I would have her take mprc-xxa-qbudoxt omeprazole 20 mg daily for 2 weeks [...] probability of severe occlusive coronary artery disease. TARA Spivey-NICOLE AGING OPERATOR documented in this encounter Plan of Treatment Upcoming Encounters Date Type Specialty Care Team Description 10/21/2022 Office Visit Pulmonology Obdulio Barrera MD [address] [address] (Wo rk) 10/25/2022 PRE VISIT ENT Charo Burton MD Previsit [address] [place] [address] (Wo rk) 10/25/2022 Office Visit ENT Charo Burton MD [address] [place], [place] [address]25 (Wo rk) 10/25/2022 Office Visit ENT Provider, Jeannette Ent Dysphonia Furnace Setter 10/25/2022 Virtual Visit Pain & [place] [address] [place], [place] [address] 10/28/2022 Appointment Speech Therapy Anabel Chew, APPLICATION ADMINISTRATOR [address] [id number] (Wo rk) 11/17/2022 Appointment Speech Therapy Anabel Chew, APPLICATION ADMINISTRATOR [address] [address] (Wo rk) 12/01/2022 Office Visit Pain & [place] [address] [place], [place] [address] (Wo rk) 12/23/2022 Office Visit Neurology Colby Yeung MD [address] [place], [place] [address] (Wo rk) documented as of this encounter Procedures Procedure Name Priority Date/Time Associated Diagnosis Comme nts STRESS TEST - ADULT Routine 11/04/2021 8:30 AM Shortness of breath Results for this PACKAGING OPERATOR Feeling of chest procedure a re in tightness the results section. documented in this encounter Results Exercise Stress Test - Adult (11/04/2021 8:30 AM PACKAGING OPERATOR) Anatomical Region Laterality Modality Other Specimen (Source) Anatomical Collection Method Collection Time Re ceived Time Location / / Volume Laterality 11/04/2021 8:30 AM PACKAGING OPERATOR Narrative 11/04/2021 11:51 AM PACKAGING OPERATOR [id number]^CYRIL^AYDEE^LILIANA [facility] Echocardiography Laboratory [address] [place] [address] Name: MARTA HAWKINS : 1980 Study Date: 11/04/2021 08:30 AM Age: 41 yrs Gender: Female Patient Location: [facility] Reason For Study: Shortness of breath, [...] normal. Stress The patient exercised 7:12. RPP [id number]. There was a normal BP response to [...] note might be different from the original. [id number] [facility] [id number]^CYRIL^AYDEE^LILIANA [facility] Echocardiography Laboratory [address] [place] [address] Name: MARTA HAWKINS : 1980 Study Date: 11/04/2021 08:30 AM Age: 41 yrs Gender: Female Patient Location: [facility] Reason For Study: Shortness of breath, [...] normal. Stress The patient exercised 7:12. RPP 22193. There was a normal BP response to [...] MD on 11/04/2021 11:51 AM Aydee Nam VENEER SANDER INFUSION PHARMACIST [facility] PRASHANTH CORDERO documented in this encounter Visit Diagnoses Diagnosis Shortness of breath Feeling of chest tightness Other chest pain documented in this encounter Additional Health Concerns Assessment Noted Time PHQ-9 Depression Total Score: 22 06/28/2021 7:03 AM CD T documented as of this encounter Care Teams Seasoner Relationship Specialty Start Date End Date Aydee Nam, PCP - General Nurse Practitioner - 05/17/21 VENEER SANDER INFUSION PHARMACIST Family [address] [place], [place] [phone] Aydee Nam, Assigned PCP 04/28/21 VENEER SANDER INFUSION PHARMACIST [address] [place] [address] [phone] Louisa Hood, Assigned Neuroscience 07/11/21 VENEER SANDER INFUSION PHARMACIST Provider [address] [place], [place] [phone] Se Levy, Lead Fish Hatchery Inspector 08/05/21 05/12/22 Clari Francois Pharmacist Pharmacist 08/06/21 06/07/22 [facility] [address] [facility] [address] [place], [place] [phone] [place], Assigned Sleep 08/01/21 Angel Turcios, Provider [address] [place], [place] [address] Lesly Celaya MD Assigned Surgical 09/05/[address] [place] [place] [address] Elizabeth Mcintyre CNM Assigned OBGYN 09/05/21 11/06/21 [address] [facility] [place], [place] [phone] Tawana Patel MA [facility] 09/30/21 Worker Mago Swift [facility] Lead Fish Hatchery Inspector Vehicle Glass Technician - 08/05/21 Clinical documented as of this encounter
--- OUTSIDE RECORDS SUMMARY | 2022-10-21 09:03 | XMS_ITS | Encounter Summary ---
:1980 Author Organization [place] Address [address] [place] [address] Care Team Providers Name Role Phone Aydee Nam GIS SCIENTIST JEWELRY MODEL MAKER Primary Care Provider Aydee Nam GIS SCIENTIST JEWELRY MODEL MAKER Unavailable [phone] Louisa Hood GIS SCIENTIST JEWELRY MODEL MAKER Unavailable [phone] Se Levy ASSISTANT COUNSEL Unavailable Unavailable Clari Ruiz [facility] Unavailable [phone] Angel Hannah MD Unavailable Lesly Celaya MD Unavailable Elizabeth Mcintyre CN Unavailable Tawana Patel MA Unavailable Unavailable Mago Swift INVENTORY CONTROL MANAGER Unavailable Reason for Referral CV Testing [...] INITIAL SUBSTANCE ZZHC US GUIDE FOR PERICARDIOCENTESIS JEWELRY MODEL MAKER ZZHC ECHO MYOCARD BX ZZC INJECTION, PERFLUTREN LIPID MICROSPHERES, PER ML [facility] STATISTIC IV PUSH SINGLE INITIAL SUBSTANCE MN ECHO MYOCARD BX [place] INJECTION, PERFLUTREN LIPID MICROSPHERES, PER ML [place] TTE W/DOPPLER, COMPLETE [address] [place] IV PUSH SINGLE, INITIAL S UBSTANCE MN TTE W/DOPPLER, COMPLETE MN TTE W/DOPPLER, COMPLETE HC US GUIDE FOR PERICARDIOCENTESIS HC ECHO MYOCARD BX HC IV PUSH SINGLE, INITIAL SUBSTANCE HC STATISTIC IV PUSH [place] [address] HC ECHO COMPLETE W DOPPLER W CONTRAST HC ECHO COMPLETE W DOPPLER W/O CONTRAST Referral ID Status Reason Start Date Expiration Date Visits Requ ested Visits Authorized [id number] Closed 10/05/2021 10/05/2022 1 1 EYOR LOADER Reason for Visit CV Testing (Routine) - Closed Specialty Diagnoses / Procedures Referred By Contact Refer red To Contact Diagnoses Shortness of breath Feeling of chest tightness Aydee Nam, ELADIO Procedures Echocardiogram Complete ZZHC TTE W/DOPPLER, COMPLETE ZZHC ECHO COMPLETE W DOPPLER W CONTRAST ZZHC ECHO COMPLETE W DOPPLER W/O CONTRAST ZZHC IV PUSH SINGLE, INITIAL SUBSTANCE ZZHC US GUIDE FOR PERICARDIOCENTESIS JEWELRY MODEL MAKER ZZHC ECHO MYOCARD BX ZZC INJECTION, PERFLUTREN LIPID MICROSPHERES, PER ML ZZHC STATISTIC IV PUSH SINGLE INITIAL SUBSTANCE MN ECHO MYOCARD BX MN INJECTION, PERFLUTREN LIPID MICROSPHERES, PER ML [place] TTE W/DOPPLER, COMPLETE [address] [place] IV PUSH SINGLE, INITIAL S UBSTANCE MN TTE W/DOPPLER, COMPLETE MN TTE W/DOPPLER, COMPLETE HC US GUIDE FOR PERICARDIOCENTESIS HC ECHO MYOCARD BX HC IV PUSH SINGLE, INITIAL SUBSTANCE HC STATISTIC IV PUSH SING[place] [address] HC ECHO COMPLETE W DOPPLER W CONTRAST HC ECHO COMPLETE W DOPPLER W/O CONTRAST Referral ID Status Reason Start Date Expiration Date Visits Requ ested Visits Authorized [id number] Closed 10/05/2021 10/05/2022 1 1 Encounter Details Date Type Department Care Team Description 11/04/2021 Hospital Encounter [facility] Aydee Nam tness of breath; [facility] ELADIO Mendez Feeling o f chest tightness Heart Care JEWELRY MODEL MAKER [address] [place] [address] [place] [address] [address] [place] [address] [phone] Social History Tobacco Use Types Packs/Day Years [...] How often do you attend synagogue or church services? Never 08/05/2021 Do you [...] at Date Recorded Female 11/09/2021 7:53 PM CONVEYOR LOADER COVID-19 Exposure Response Date Recorded In the last month, have you been in contact with No / Unsure 11/04/2021 7:37 AM CONVEYOR LOADER someone who was confirmed or suspected to [...] Miscellaneous Notes Result Encounter Note - Aydee Nam, ELADIO JEWELRY MODEL MAKER - 11/04/2021 8:27 AM CONVEYOR LOADER Normal in another encounter. Aydee Nam, TARA-NICOLE EYOR LOADER documented in this encounter Plan of Treatment Upcoming Encounters Date Type Specialty Care Team Description 10/21/2022 Office Visit Pulmonology Obduilo Barrera MD [address] [phone] (Wo rk) 10/25/2022 PRE VISIT ENT Charo Burton MD Previsit [address] [place] [phone] (Wo rk) 10/25/2022 Office Visit ENT Charo Burton MD [address] [place] [address] [phone] (Wo rk) 10/25/2022 Office Visit ENT Provider, Ent Dysphonia Ground Operations Superintendent 10/25/2022 Virtual Visit Pain & [place] [address] [place], [place] [address] 10/28/2022 Appointment Speech Therapy Anabel Chew, PICTURE FRAME MAKER [address] [address] (Wo rk) 11/17/2022 Appointment Speech Therapy Anabel Chew, PICTURE FRAME MAKER [address] [phone] (Wo rk) 12/01/2022 Office Visit Pain & [place] [address] [place], [place] [address] (Wo rk) 12/23/2022 Office Visit Neurology Colby Yeung MD [address] [place] [phone] (Wo rk) documented as of this encounter Procedures Procedure Name Priority Date/Time Associated Diagnosis Comme nts ECHO COMPLETE Routine 11/04/2021 8:23 AM Shortness of breath Results for this CONVEYOR LOADER Feeling of chest procedure a re in the tightness results section . documented in this encounter Results ECHO COMPLETE (11/04/2021 8:23 AM CONVEYOR LOADER) P athologist Signature LVEF 55-60% CARDIOLOGY RESULTS Anatomical Region Laterality Modality Echocardiography Specimen (Source) Anatomical Collection Method Collection Time Re ceived Time Location / / Volume Laterality 11/04/2021 7:45 AM CONVEYOR LOADER Narrative 11/04/2021 9:25 AM CONVEYOR LOADER [id number]^CYRIL^AYDEE^LILIANA [facility] Echocardiography Laboratory [address] [place] [address] Name: MARTA HAWKINS : 1980 Study Date: 11/04/2021 07:45 AM Age: 41 yrs Gender: Female Patient Location: [facility] Reason For Study: Shortness of breath, [...] note might be different from the original. [id number]^CYRIL^AYDEE^LILIANA [facility] Echocardiography Laboratory [address] [place] [address] Name: MARTA HAWKINS : 1980 Study Date: 11/04/2021 07:45 AM Age: 41 yrs Gender: Female Patient Location: [facility] Reason For Study: Shortness of breath, [...] Charlie Barnett 11/04/2021 09:25 AM Aydee Nam GIS SCIENTIST JEWELRY MODEL MAKER CV ECHO ORDERABLES documented in this encounter Visit Diagnoses Diagnosis Shortness of breath Feeling of chest tightness Other chest pain documented in this encounter Additional Health Concerns Assessment Noted Time PHQ-9 Depression Total Score: 22 06/28/2021 7:03 AM CD T documented as of this encounter Care Teams Auto Adjudication Specialist Relationship Specialty Start Date End Date Aydee Nam, PCP - General Nurse Practitioner - 05/17/21 GIS SCIENTIST JEWELRY MODEL MAKER Family [address] [place], [place] [phone] Aydee Nam, Assigned PCP 04/28/21 GIS SCIENTIST JEWELRY MODEL MAKER [address] [place], [place] [phone] Louisa Hood, Assigned Neuroscience 07/11/21 GIS SCIENTIST JEWELRY MODEL MAKER Provider [address] [place], [place] [phone] Se Levy, Lead Working Manager 08/05/21 05/12/22 Clari Francois Pharmacist Pharmacist 08/06/21 06/07/22 [facility] [address] [facility] [address] [place], [place] [phone] [place], Tone Sleep 08/01/21 Angel Turcios, Provider [address] [place], [place] [phone] Lesly Celaya MD Assigned Surgical 09/05/[address] [place] [address] Elizabeth Mcintyer CNM Assigned OBGYN 09/05/21 11/06/21 [address] Provider [place], [place] [phone] Tawana Patel MA [facility] 09/30/21 Worker Mago Swift [facility] Lead Working Manager Automobile Designer - 08/05/21 Clinical documented as of this encounter
--- OUTSIDE RECORDS SUMMARY | 2022-10-21 09:03 | XMS_ITS | Encounter Summary ---
:1980 Author Organization [place] Address [address] [place] [address] Care Team Providers Name Role Phone Aydee Burton SENIOR HRIS ANALYST TRANSPORTATION SUPERINTENDENT Primary Care Provider [phone] Aydee Burton SENIOR HRIS ANALYST TRANSPORTATION SUPERINTENDENT Unavailable [phone] Louisa Hood SENIOR HRIS ANALYST TRANSPORTATION SUPERINTENDENT Unavailable [phone] Se Levy C++ QUANT DEVELOPER Unavailable Unavailable Clari Ruiz [facility] Unavailable [phone] Angel Hannah MD Unavailable Lesly Celaya MD Unavailable Elizabeth Mcintyre CN Unavailable Tawana Patel MA Unavailable Unavailable Mago Swift HYDRAULIC JACK MECHANIC Unavailable Reason for Visit Auth/Cert Specialty Diagnoses [...] SKIN LESION TRUNK/ARM/LEG 2.1-3.[address] HC EXC BENIGN SKIN LESION TR UNK/ARM/LEG 3.1-4.0 CM HC EXC BENIGN SKIN LESION TRUNK/ARM/LEG >4 CM HC EXC MALIG SKIN LESION TRUNK/ARM/LEG <=0.5 CM HC EXC MALIG SKIN LESION TRUNK/ARM/LEG 0.6-1.0 CM HC EXC MALIG SKIN LESION TRUNK/ARM/LEG 1.1-2.0 [place] [address] HC EXC MALIG SKIN LESION SUSANA NK/ARM/LEG [...] Expiration Date Visits Requ ested Visits Authorized [id number] 1 1 Encounter Details Date Type Department Care Team Description 10/12/2021 Surgery [facility] Maggy Celaya MD EXCISION MULTIPLE [facility] [address] LIPOMAS - bilateral [address] [place] [address] legs, arms and trunk [place], [place] [phone] (Wo rk) [address] [phone] Surgery Details Date/Time Status Location OR Service [...] Primary General 1 Mario Castellon PA-C Assisting [facility] Fernando lo 1 documented in this encounter Social History [...] How often do you attend pentecostalism or latter-day services? 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/2021 7:53 PM PRODUCTION LINE COVID-19 Exposure Response Date Recorded In the last month, have you been in contact with No / Unsure 10/12/2021 10:55 AM PRODUCTION LINE someone who was confirmed or suspected to have Coronavirus / COVID-19? documented as of this encounter Last Filed Vital Signs Vital Sign Reading Time Taken Comments Blood Pressure 114/73 10/12/2021 11:16 AM PRODUCTION LINE Pulse 98 10/12/2021 11:16 AM PRODUCTION LINE Temperature 36.5 ??C (97.7 ??F) 10/12/2021 11:16 AM PRODUCTION LINE Respiratory Rate 16 10/12/2021 12:00 PM PRODUCTION LINE Oxygen Saturation 98% 10/12/2021 11:16 AM PRODUCTION LINE Inhaled Oxygen Concentration - - Weight 93 kg (205 lb) 10/12/2021 11:16 AM PRODUCTION LINE Height 170.2 cm (5' 7) 10/12/2021 11:16 AM PRODUCTION LINE Body Mass Index 32.11 10/12/2021 11:16 AM PRODUCTION LINE documented in this encounter Discharge Instructions Discharge Angela Gilliam RN - 10/12/2021 5:00 PM PRODUCTION LINE HOME CARE FOLLOWING [facility]OR SURGERY Rocío Alvarez, [...] the above pain medication only as needed. Bbgv-rps-hqfwsuy anti-inflammatory medications (i.e. Ibuprofen/Advil/Motrin or Naprosyn/Aleve) may [...] to be seen, please call us at [phone]. We are located at: [address] [facility], [address]; [place] [address] -CONTACT US IF THE FOLLOWING DEVELOPS: 1. [...] Walk around frequently. You may consider an siyo-ezo-iimlhdi stool-softener. Your Pharmacist can assist you with [...] to discuss with the nurse or physician court assistant. # There is a surgeon EDUCATIONAL ASSISTANT TEACHER on weekday evenings and over the weekend [...] STILL NOT ABLE TO URINATE (PASS WATER). UCTION LINE documented in this encounter Medications at Time [...] thigh x 2 Surgeon: Lesly Celaya MD [facility](s): Mario Castellon PA-C and Jonah Mckeon MS3 [...] end of the case. Lesly Celaya MD UCTION LINE documented in this encounter Plan of Treatment Upcoming Encounters Date Type Specialty Care Team Description 10/21/2022 Office Visit Pulmonology Obdulio Barrera MD [address] [address] (Estefanía casanova) 10/25/2022 PRE VISIT ENT Charo Burton MD Previsit [address] [place] [address] (Estefanía casanova) 10/25/2022 Office Visit ENT Charo Burton MD [address] [place], [place] [address] (Wo rk) 10/25/2022 Office Visit ENT Provider, Jeannette Ent Dysphonia Plant Operator Helper 10/25/2022 Virtual Visit Pain & [place] [address] [place], [place] [address] 10/28/2022 Appointment Speech Therapy Anabel Chew, DEICER REPAIRER [address] [phone] (Wo rk) 11/17/2022 Appointment Speech Therapy Anabel Chew, DEICER REPAIRER [address] [address] (Wo rk) 12/01/2022 Office Visit Pain & [place] [address] [place], [place] [address] (Wo rk) 12/23/2022 Office Visit Neurology Colby Yeung MD [address] [place], [place] [address] (Wo rk) documented as of this encounter Procedures Procedure Name Priority Date/Time Associated Diagnosis Comme nts SURGICAL PATHOLOGY Routine 10/12/2021 1:55 PM Res ults for this EXAM PRODUCTION LINE procedure are i n the results section. EXCISION, MASS, 10/12/2021 12:55 Lipoma of skin and BACK PM PRODUCTION LINE subcutaneous tissue GLUCOSE BY METER Routine 10/12/2021 11:22 Results for this AM PRODUCTION LINE procedure are i n the results section. documented in this encounter Results Surgical Pathology Exam (10/12/2021 1:55 PM PRODUCTION LINE) Component Value Ref Test Analysis Performed At [facility] Method Time Signature Case Report Surgical Pathology Report ? Case: [id number] ? 10/13/2021 Authorizing Provider: ??Lesly Leon MD ? Collected: ? 10/12/2021 01:55 PM ? 12:09 PM LABORATO RY Ordering Location: ? [facility] ?? Received: ?10/12/2021 03:23 PM ? PRODUCTION LINE ? Main OR ? Pathologist: ? Dhara [...] consistent 12:09 PM LABORATORY with lipomas from PRODUCTION LINE bilateral legs, lower arms, and back. Gross [...] Sectioning the specimen reveals grossly unremarkable fat. Dry Kiln Burner sections are submitted in 4 cassettes. PRODUCTION LINE (FLORES Langley) Microscopic Microscopic 10/13/2021 RH Description examination was 12:09 PM LABORATORY performed. PRODUCTION LINE Performing The technical 10/13/2021 Labs component of this 12:09 PM LABORATORY testing was PRODUCTION LINE completed at [facility] Laboratory Case Images 10/13/2021 RH 12:09 PM LABORATORY PRODUCTION LINE Specimen Anatomical Collection Method Collection Time Receive d Time (Source) Location / / Volume Laterality Tissue STRUCTURE OF LEFT 10/12/2021 1:55 PM 11 3:23 THIGH / Unknown PRODUCTION LINE PM PRODUCTION LINE Lesly TALBOT AP Performing Organization Address City/State/ZIP Code [place] [address] Care Lab [address] Lab (1st floor, no room number) Glucose by meter (10/12/2021 11:22 AM PRODUCTION LINE) athologist Signature GLUCOSE BY 92 70 - 99 10/12/2021 LABORATORY METER POCT mg/dL 11:28 AM PRODUCTION LINE POC Specimen Anatomical Collection Method Collection Time Receive d Time (Source) Location / / Volume Laterality Blood BLOOD SPECIMEN / 10/12/2021 11:22 10/12/ 021 Unknown AM PRODUCTION LINE 11:28 AM PRODUCTION LINE Lesly TALBOT POCT Performing Organization Address City/State/ZIP Code Phon [place] [address] Care Lab [address] Lab (1st floor, no room number) [...] 2:42 PM 30 mLs Operative EPINEPHrine 1:200,000 PRODUCTION LINE Sit e/Surgical Site (PF) injection PRN, Starting on Mon10/12/21 at 1442, Intra-procedure ePHEDrine injection 25 mg Given 10/12/2021 4:10 PM PRODUCTION LINE 25 mg 25 mg, Intramuscular, ONCE, On [...] ringers infusion New Bag 10/12/2021 4:17 PM PRODUCTION LINE 100 mL/hr at 100 mL/hr, Intravenous, CONTINUOUS, Continue until IV catheter is weaned, PACU/Phase II, Starting on Mon10/12/21 at 1530, Until Mon10/12/21 at 1930 meperidine (DEMEROL) injection 12.5 mg 12.5 mg, Intravenous, EVERY 15 MIN PRN, post anesthesia shivering, Starting on Mon10/12/21 at 1529, For 2 doses, PACU/Phase II ondansetron (ZOFRAN) injection 4 mg Given 10/12/2021 3:44 PM PRODUCTION LINE 4 mg 4 mg, Intravenous, EVERY 30 [...] promethazine (PHENERGAN) intraMUSCULAR Given 10/12/2021 4:11 PM PRODUCTION LINE 25 mg injection 25 mg 25 mg, Intramuscular, ONCE, On Mon10/12/21 at 1630, For 1 dose, Preferred route of administration; administer as a deep IM injection. May cause pain at injection site., PACU/Phase II sodium chloride 0.9% Given 10/12/2021 2:42 PM 200 mLs Operative Site/Surgical (bottle) irrigation PRODUCTION LINE Site PRN, Starting on Mon10/12/21 at 1442, Intra-procedure documented in this encounter Active and Recently Administered Medications Times are shown in PRODUCTION LINE. Scheduled Medication Order 10/10/2021 10/11/2021 10/12/2021 bupivacaine [...] (PHENERGAN) intraMUSCULAR injection 25 mg (COMPLETE D) 1611 (Given - Provider: Kristy Ramos RN) 25 [...] documented as of this encounter Care Teams Party Plan Dealer Relationship Specialty Start Date End Date Aydee Burton, PCP - General Nurse Practitioner - 05/17/21 SENIOR HRIS ANALYST TRANSPORTATION SUPERINTENDENT Family [address] [place] [address] [phone] Aydee Burton, Assigned PCP 04/28/21 SENIOR HRIS ANALYST TRANSPORTATION SUPERINTENDENT [address] [place] [address] [phone] Louisa Hood, Assigned Neuroscience 07/11/21 SENIOR HRIS ANALYST TRANSPORTATION SUPERINTENDENT Provider [address] [place], [place] [phone] Se Levy, Lead Program Counselor 08/05/21 05/12/22 Clari Francois Pharmacist Pharmacist 08/06/21 06/07/22 JORDAN Banks [address] [place], [place] [phone] [place], Assigned Sleep 08/01/21 Angel Turcios, Provider [address] [place], [place] [phone] Lesly Celaya MD Assigned Surgical 09/05/21 [address] [place] [place] [address] Elizabeth Mcintyre CNM Assigned OBGYN 09/05/21 11/06/21 [address] [place] [address] Tawana Patel MA [facility] 09/30/21 Worker Mago Swift LICSW Lead Program Counselor Route Manager - 08/05/21 Clinical documented as of this encounter
--- OUTSIDE RECORDS SUMMARY | 2022-10-21 09:03 | XMS_ITS | Encounter Summary ---
:1980 Author Organization [place] Address [address] [place] [address] Care Team Providers Name Role Phone Aydee Burton OVEN HEATER VIDEO PRODUCTION ENGINEER Primary Care Provider [phone] Aydee Burton OVEN HEATER VIDEO PRODUCTION ENGINEER Unavailable [phone] Louisa Hood OVEN HEATER VIDEO PRODUCTION ENGINEER Unavailable [phone] Se Levy CLIENT EVALUATOR Unavailable Unavailable Clari Ruiz [facility] Unavailable Angel Hannah MD Unavailable Lesly Celaya MD Unavailable Elizabeth Mcintyre CN Unavailable Tawana Patel MA Unavailable Unavailable Mago Swift MASS SPECTROSCOPIST Unavailable Reason for Visit Reason Onset Date Comments Imm/Inj 10/08/2021 COVID-19 VACCINE Encounter Details Date Type Department Care Team Description 10/08/2021 Immunization [facility] Hig h priority for 2019-nCoV vaccine (Primary Dx); [place] Encounter for screening for other viral diseases [address] [place] [address] Social History Tobacco Use [...] How often do you attend islam or spiritism services? 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/2021 7:53 PM DIRECTOR OPERATIONS BROADCAST COVID-19 Exposure Response Date Recorded In the last month, have you been in contact with No / Unsure 10/08/2021 11:08 AM DIRECTOR OPERATIONS BROADCAST someone who was confirmed or suspected to have Coronavirus / COVID-19? documented as of this encounter Miscellaneous Notes Addendum Note - Jennifer Medel CMA - 10/08/2021 11:15 AM DIRECTOR OPERATIONS BROADCAST Addended by: JENNIFER MEDEL on: 10/08/2021 11:34 AM Modules accepted: Orders CTOR OPERATIONS BROADCAST documented in this encounter Plan of Treatment Upcoming Encounters Date Type Specialty Care Team Description 10/21/2022 Office Visit Pulmonology Obdulio Barrera MD [address] [facility] [address] [place], [place] [address] (Wo rk) 10/25/2022 PRE VISIT ENT Charo Burton MD Previsit [address] [place], [place] [phone] (Wo rk) 10/25/2022 Office Visit ENT Charo Burton MD [address] [place], [place] [phone] (Wo rk) 10/25/2022 Office Visit ENT Provider, Ent Dysphonia Switcher 10/25/2022 Virtual Visit Pain & [place]iative [place] [address] [place], [place] [address] 10/28/2022 Appointment Speech Therapy Anabel Chew, COMMUNITY EDUCATION SPECIALIST [address] [place], [place] [address] (Wo rk) 11/17/2022 Appointment Speech Therapy Anabel Chew, COMMUNITY EDUCATION SPECIALIST [address] [place], [place] [address] (Wo rk) 12/01/2022 Office Visit Pain [place] [address] [place], [place] [address] (Wo rk) 12/23/2022 Office Visit Neurology Colby Yeung MD [address] [place] [address] (Wo rk) documented as of this encounter Procedures Procedure Name Priority Date/Time Associated Diagnosis Comme nts COVID-19 VIRUS Routine 10/08/2021 11:32 AM Encounter for Resul ts for this (CORONAVIRUS) BY DIRECTOR OPERATIONS BROADCAST screening for other proc edure are in PCR viral diseases the results section. documented in this encounter Results Asymptomatic COVID-19 Virus (Coronavirus) by PCR Nose (10/08/2021 11:32 AM DIRECTOR OPERATIONS BROADCAST) [facility] Method Time Signature SARS CoV2 PCR Negative Negative, 10/09/2021 [facility] Testing sent to 1:16 PM DIRECTOR OPERATIONS BROADCAST LABORATORY reference lab. Results will be returned via unsolicited result Comment: NEGATIVE: SARS-CoV-2 (COVID-19) RNA not detected, presumed negative. Specimen Anatomical Collection Method Collection Time Receive d Time (Source) Location / / Volume Laterality Swab NASAL STRUCTURE / Non-blood 10/08/2021 11:32 2020 Unknown Collection / AM DIRECTOR OPERATIONS BROADCAST 11:48 AM DIRECTOR OPERATIONS BROADCAST Unknown Narrative [facility] - 10/09/2021 1:[address] Testing was performed using the Aptima SARS-CoV-2 Assay on the [employer] Instrument System. Additional in formation about this [...] COVID-19. This test was validated by the [facility]. This lab oratory is certified under the Clinical Laboratory Improvement Amen dments of 1987 (CLIA-88) as qualified to perform high complexity lab oratory testing. Lesly Celaya MD LAB - MICRO GENERAL ORDERABL ES Performing Organization Address City/State/ZIP Code Phon e Number [facility] [place] [place] [address] Diag. Lab [address] [facility], Room [address]297 [facility] Infectious [place], [place] [phone] Diseases Diagnostic [phone], [facility] Lab (IDDL) [address] [facility], Room D297 documented in this encounter Visit Diagnoses Diagnosis High priority for 2019-nCoV vaccine - Pr imary Encounter for screening for other viral diseases documented in this encounter Additional Health Concerns Assessment Noted Time PHQ-9 Depression Total Score: 22 06/28/2021 7:03 AM CD T documented as of this encounter Care Teams Corporate Security Officer Relationship Specialty Start Date End Date Aydee Burton, PCP - General Nurse Practitioner - 05/17/21 OVEN HEATER VIDEO PRODUCTION ENGINEER Family [address] [place] [address] Aydee Burton, Assigned PCP 04/28/21 OVEN HEATER VIDEO PRODUCTION ENGINEER [address] [place] [address] Louisa Hood, Assigned Neuroscience 07/11/21 OVEN HEATER VIDEO PRODUCTION ENGINEER Provider [address] [place], [place] [phone] Se Levy, Lead Research Animal Facility Supervisor 08/05/21 05/12/22 Clari Francois Pharmacist Pharmacist 08/06/21 06/07/22 Jocelyn, [facility] [address] [place], [place] [phone] [place], Assigned Sleep 08/01/21 Angel Turcios, Provider [address] [place], [place] [phone] Lesly Celyaa MD Assigned Surgical 09/05/[address] [place] [address] Elizabeth Mcintyre CNM Assigned OBGYN 09/05/21 11/06/21 [address] [facility] [address] Tawana Patel MA [facility] 09/30/21 Worker Mago Swift LICSW Lead Research Animal Facility Supervisor Gun Synchronizer - 08/05/21 Clinical documented as of this encounter
--- OUTSIDE RECORDS SUMMARY | 2022-10-21 09:04 | XMS_ITS | Encounter Summary ---
:1980 Author Organization [place] Address [address] [place] [address] Care Team Providers Name Role Phone Aydee Burton SQL MANAGER CORPORATE COORDINATOR Primary Care Provider Aydee Burton SQL MANAGER CORPORATE COORDINATOR Unavailable [phone] Louisa Hood SQL MANAGER CORPORATE COORDINATOR Unavailable [phone] Se Levy CRIMINAL DEFENSE LAWYER Unavailable Unavailable Anny Bernabe Unavailable Unavailable Clari Ruiz [facility] Unavailable [phone] Angel Hannah MD Unavailable Mago Swift SLOT SHIFT MANAGER Unavailable Reason for Visit Diagnostic Imaging Ultrasound (Routine) - Closed Specialty Diagnoses / Procedures Referred By Contact Refer red To Contact Diagnoses Menorrhagia with irregular cycle Elizabeth Mcintyre CNM Procedures US Pelvic Complete with Transvaginal [address] [place], [place] [address] Referral ID Status Reason Start Date Expiration Date Visits Requ ested Visits Authorized [id number] Closed 08/30/2021 08/30/2022 1 1 Encounter Details Date Type Department Care Team Description 08/31/2021 Ancillary Procedure [facility] Elizabeth Mcintyre norrhagia with [facility] [place] NYDIA [place] irregular cycle [place] [address] [address] [facility], [address] [place] [id number] Social History Tobacco Use Types Packs/Day Years [...] How often do you attend zoroastrianism or orthodox services? 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/2021 7:53 PM LAUNDRY SUPERVISOR COVID-19 Exposure Response Date Recorded In the last month, have you been in contact with No / Unsure 08/31/2021 9:32 AM CDT someone who was confirmed or suspected to have Coronavirus / COVID-19? documented as of this encounter Plan of Treatment Upcoming Encounters Date Type Specialty Care Team Description 10/21/2022 Office Visit Pulmonology Obdulio Barrera MD [address] [facility] [address] [place], [place] [address] (Wo rk) 10/25/2022 PRE VISIT ENT Charo Burton MD Previsit [address] [place] [address] (Wo rk) 10/25/2022 Office Visit ENT Charo Burton MD [address] [place], [place] [phone] (Wo rk) 10/25/2022 Office Visit ENT Provider, Ent Dysphonia Still Operator Whiskey 10/25/2022 Virtual Visit Pain & [place]iative [place] [address] [place], [place] [address] 10/28/2022 Appointment Speech Therapy Anabel Chew, GROUP HOME PARAPROFESSIONAL [address] [place], [place] [phone] (Wo rk) 11/17/2022 Appointment Speech Therapy Anabel Chew, GROUP HOME PARAPROFESSIONAL [address] [place], [place] [phone] (Wo rk) 12/01/2022 Office Visit Pain & [place] [address] [place], [place] [address] (Wo rk) 12/23/2022 Office Visit Neurology Colby Yeung MD [address] [place] [address] (Wo rk) documented as [...] Laterality Volume Narrative 08/31/2021 3:21 PM CDT [facility] ULTRASOUND - PELVIC IC DESIGN ENGINEER- Transabdominal and Transvaginal ?? Referring MD: Elizabeth [...] Latricia Saavedra, DO ?? Obstetrics and Gynecology [facility] Elizabeth Micntyre CNM IMG US ORDERABLES documented in this encounter Visit Diagnoses Diagnosis Menorrhagia with irregular cycle Excessive or frequent menstruation documented in this encounter Additional Health Concerns Assessment Noted Time PHQ-9 Depression Total Score: 22 06/28/2021 7:03 AM CD T documented as of this encounter Care Teams Wheel Blocker Relationship Specialty Start Date End Date Aydee Burtonlotte, PCP - General Nurse Practitioner - 05/17/21 SQL MANAGER CORPORATE COORDINATOR Family [address] [place], [place] [address] Aydee Burton, Assigned PCP 04/28/21 SQL MANAGER CORPORATE COORDINATOR [address] [place], [place] [phone] Louisa Hood, Assigned Neuroscience 07/11/21 SQL MANAGER CORPORATE COORDINATOR Provider [address] [place], [place] [phone] Se Levy, Lead Ship Carpenter 08/05/21 05/12/22 [facility] 08/05/21 09/30/21 Worker Clari Ruiz Pharmacist Pharmacist 08/06/21 06/07/22 [facility] [address] [place] [address] [place], Assigned Sleep 08/01/21 Angel Turcios, Provider [address] [place] [address] Mago Swift [facility] Lead Ship Carpenter [employer]oe [employer] Caser - 08/05/21 Clinical documented as of this encounter
--- OUTSIDE RECORDS SUMMARY | 2022-10-21 09:04 | XMS_ITS | Encounter Summary ---
:1980 Author Organization [place] Address [address] [place] [address] Care Team Providers Name Role Phone Aydee Burton COLLAR SHAPER OPERATOR ONLINE PRODUCER Primary Care Provider Aydee Burton COLLAR SHAPER OPERATOR ONLINE PRODUCER Unavailable [phone] Louisa Hood COLLAR SHAPER OPERATOR ONLINE PRODUCER Unavailable [phone] Se Levy MACHINE MAINTENANCE REPAIRER Unavailable Unavailable Anny Bernabe Unavailable Unavailable Clari Ruiz [facility] Unavailable [phone] Angel Hannah MD Unavailable Mago Swift AIR CONDITIONING MECHANIC INDUSTRIAL Unavailable Reason for Visit Reason Onset Date Comments Schedule Surgery 08/30/2021 EXCISION MULTIPLE LI POMAS, BILATERAL FOREARMS, BILATERAL THIGH, AND TRUNK MAC PT INST TO HAVE H&P WITH DR CYRIL ROCK PA ASSIST LISA S NMS Encounter Details Date Type Department Care Team Description [facility] [address] ([place] [address] LIPOMAS, BILATERAL [address] FOREARMS, BILATERAL [address] THIGH, AND TRUNK [place], [place] PT INST TO [facility] [place]ICK H&P [address] CYRIL HOLMAN REQ [phone] PA ASSIST JLKylie N MS ) Social History Tobacco Use [...] How often do you attend sikhism or sabianism services? Never 08/05/2021 Do you [...] at Date Recorded Female 11/09/2021 7:53 PM SLOT SHIFT MANAGER COVID-19 Exposure Response Date Recorded In [...] WITH DR CYRIL HOLMAN REQ PA ASSIST JLS NMS documented in this encounter Plan of Treatment Upcoming Encounters Date Type Specialty Care Team Description 10/21/2022 Office Visit Pulmonology Obdulio Barrera MD [address] [place] [phone] (Wo rk) 10/25/2022 PRE VISIT ENT Charo Burton MD Previsit [address] [place], [place] [phone] (Wo rk) 10/25/2022 Office Visit Charo Carter MD [address] [place] [phone] (Wo rk) 10/25/2022 Office Visit ENT Provider, Ent Dysphonia Import/Export Clerk 10/25/2022 Virtual Visit Pain & Palliative [place] [address] [place], [place] [address] 10/28/2022 Appointment Speech Therapy Anabel Chew SLP [address] [phone] (Wo rk) 11/17/2022 Appointment Speech Therapy Anbael Chew SLP [address] [phone] (Wo rk) 12/01/2022 Office Visit Pain & [place] [address] [place], [place] [address] (Wo rk) 12/23/2022 Office Visit Neurology Colby Yeung MD [address] [facility] [place] [address] (Wo rk) documented as of this encounter Visit Diagnoses Not on filedocumented in this encounter Additional Health Concerns Assessment Noted Time PHQ-9 Depression Total Score: 06/28/2021 7:03 AM CD T documented as of this encounter Care Teams Retention Specialist Relationship Specialty Start Date End Date Aydee Burton, PCP - General Nurse Practitioner - 05/17/21 COLLAR SHAPER OPERATOR ONLINE PRODUCER Family [address] [place] [address] Aydee Burton, Assigned PCP 04/28/21 COLLAR SHAPER OPERATOR ONLINE PRODUCER [address] [place] [address] Louisa Hood, Assigned Neuroscience 07/11/21 COLLAR SHAPER OPERATOR ONLINE PRODUCER Provider [address] [place] [address] Se Levy, Lead Sport Shoe Spike Assembler 08/05/21 05/12/22 [facility] 08/05/21 09/30/21 Worker Clari Ruiz Pharmacist Pharmacist 08/06/21 06/07/22 Jocelyn [facility] [address] [place] [address] [place], Assigned Sleep 08/01/21 Angel Turcios, Provider [address] [place] [address] Mago Swift [facility] Lead Sport Shoe Spike Assembler Pvc Monitor - 08/05/21 Clinical documented as of this encounter
--- OUTSIDE RECORDS SUMMARY | 2022-10-21 09:04 | XMS_ITS | Encounter Summary ---
:1980 Author Organization [place] Address [address] [place] [address] Care Team Providers Name Role Phone Aydee Burton FIRE CLAIMS ADJUSTER COATING MIXER SUPERVISOR Primary Care Provider Aydee Burton FIRE CLAIMS ADJUSTER COATING MIXER SUPERVISOR Unavailable [phone] Louisa Hood FIRE CLAIMS ADJUSTER COATING MIXER SUPERVISOR Unavailable [phone] Se Levy HEEL ATTACHER WOOD Unavailable Unavailable Anny Bernabe Unavailable Unavailable Clari Ruiz [facility] Unavailable [phone] Angel Hannah MD Unavailable Lesly Celaya MD Unavailable Elizabeth Mcintyre [facility] Unavailable Mago Swift CLERICAL CAR CHECKER Unavailable Encounter Details Date Type Department Care Team Description 09/09/2021 [facility] Keisha Salcedo MD [address] [place] [address] [place], [place] [phone] (Wo rk) [address] [phone] Social History Tobacco Use Types Packs/Day Years [...] How often do you attend christianity or christian services? 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/2021 7:53 PM ASSISTANT WOMEN'S SOCCER COACH COVID-19 Exposure Response Date Recorded In the last month, have you been in contact with No / Unsure 09/09/2021 8:00 PM CDT someone who was confirmed or suspected to have Coronavirus / COVID-19? documented as of this encounter Procedure Notes Angel Hannah MD - 09/09/2021 11:59 PM CDTAssociated Order(s): LIGHTING FIXTURE INSTALLER COMPREHENSIVE SLEEP Images from the original note were not included. SLEEP STUDY INTERPRETATION DIAGNOSTIC POLYSOMNOGRAPHY REPORT Patient: MARTA HAWKINS Date of : 1980 Study Date: 09/09/2021 Referring Provider: - Ordering Provider: - Indications for Polysomnography: The patient is a 41-year-old Female who is 5' 7 and weighs 200.0 lbs. Her BMI is 31.4, Storden sleepiness scale 20 and neck circumference is [...] G47.9 Periodic Limb Movement Disorder G47.61 09/09/2021 [facility] Sleep Study (200.0 lbs) - AHI 4.8, RDI 5.0, Supine AHI 7.6, REM AHI 4.1, Low O2 83.1%, Time Spent ?88% 0.1 minutes / Time Spent ?89% 0.1 minutes. Electronically Signed By: (Suni Hannah MD), 09/23/21 STANT WOMEN'S SOCCER COACH documented in this encounter Plan of Treatment Upcoming Encounters Date Type Specialty Care Team Description 10/21/2022 Office Visit Pulmonology Obdulio Barrera MD [address] [place] [phone] (Wo rk) 10/25/2022 PRE VISIT ENT Charo Burton MD Previsit [address] [place] [phone] (Wo rk) 10/25/2022 Office Visit Charo Carter MD [address] [place] [phone] (Estefanía casanova) 10/25/2022 Office Visit ENT Provider, Ent Dysphonia Gold Frame Assembler 10/25/2022 Virtual Visit Pain & [place] [address] [place], [place] [address] 10/28/2022 Appointment Speech Therapy Anabel Chew, LIGHTING FIXTURE INSTALLER [address] [phone] (Wo rk) 11/17/2022 Appointment Speech Therapy Anabel Chew LIGHTING FIXTURE INSTALLER [address] [address] (Wo rk) 12/01/2022 Office Visit Pain & [place] [address] [place], [place] [address] (Wo rk) 12/23/2022 Office Visit Neurology Colby Yeung MD [address] [place] [address] (Wo rk) documented as of this encounter Procedures Procedure Name Priority Date/Time Associated Comments Diagnosis LIGHTING FIXTURE INSTALLER COMPREHENSIVE SEAN 09/09/2021 8:02 PM Sleep disturbance Results for this SLEEP CDT procedure are i n the results section. documented in this encounter Visit Diagnoses Not on filedocumented in this encounter Additional Health Concerns Assessment Noted Time PHQ-9 Depression Total Score: 22 06/28/2021 7:03 AM CD T documented as of this encounter Care Teams Aircraft Riveter Relationship Specialty Start Date End Date Aydee Burton, PCP - General Nurse Practitioner - 05/17/21 FIRE CLAIMS ADJUSTER COATING MIXER SUPERVISOR Family [address] [place] [phone] Aydee Burton, Assigned PCP 04/28/21 FIRE CLAIMS ADJUSTER COATING MIXER SUPERVISOR [address] [place], [place] [phone] Louisa Hood, Assigned Neuroscience 07/11/21 FIRE CLAIMS ADJUSTER COATING MIXER SUPERVISOR Provider [address] [place] [phone] Se Levy, Lead Parcel Post Order Clerk 08/05/21 05/12/22 [facility] 08/05/21 09/30/21 Worker Clari Ruiz Pharmacist Pharmacist 08/06/21 06/07/22 [facility] [address] [place] [address] [place], Assigned Sleep 08/01/21 Angel Turcios, Provider [address] [place] [address] Lesly Celaya MD Assigned Surgical 09/05/[address] [place] [address] Elizabeth Mcintyre CNM Assigned OBGYN 09/05/21 11/06/[id number] Provider [place], [place] [phone] Mago Swift CLERICAL CAR CHECKER Lead Parcel Post Order Clerk Commercial Floor Covering Installer - 08/05/21 Clinical documented as of this encounter
--- OUTSIDE RECORDS SUMMARY | 2022-10-21 09:04 | XMS_ITS | Encounter Summary ---
:1980 Author Organization [place] Address [facility] [place] [address] Care Team Providers Name Role Phone Aydee Burton LABORATORY INSPECTOR CONSTRUCTION LABORER Primary Care Provider Aydee Burton LABORATORY INSPECTOR CONSTRUCTION LABORER Unavailable [phone] Louisa Hood LABORATORY INSPECTOR CONSTRUCTION LABORER Unavailable [phone] Se Levy FINAL RAIL CUTTER Unavailable Unavailable Anny Bernabe Unavailable Unavailable Clari Ruiz [facility] Unavailable [phone] Angel Hannah MD Unavailable Mago Swift ECONOMIC HISTORIAN Unavailable Reason for Referral Consultation (Routine) - Closed Specialty Diagnoses / Procedures Referred By Contact Refer red To Contact Internal Medicine Diagnoses Localized skin mass, lump, or swelling Elizabeth Mcintyre CNM [facility] [address] SERVICES [address] [address] [place] [address] Phone: Referral ID Status Reason Start Date Expiration Date Visits Requ ested Visits Authorized [id number] Closed 08/30/2021 08/30/2022 1 1 Consultation (Routine) - Closed Specialty Diagnoses / Procedures Referred By Contact Refer red To Contact Surgery Diagnoses Localized skin mass, lump, or swelling Elizabeth Mcintyre CNM Rh Surgical Consult [address], [place], [place] [address] [address] [place] [address] Phone: Fax: Referral ID Status Reason Start Date Expiration Date Visits Requ ested Visits Authorized [id number] Closed 08/30/2021 08/30/2022 1 1 Diagnostic Imaging Ultrasound (Routine) - Closed Specialty Diagnoses / Procedures Referred By Contact Refer red To Contact Diagnoses Menorrhagia with irregular cycle Elizabeth Mcintyre CNM Procedures US Pelvic Complete with Transvaginal [address] [place], [place] [address] Referral ID Status Reason Start Date Expiration Date Visits Requ ested Visits Authorized [id number] Closed 08/30/2021 08/30/2022 1 1 Reason for Visit Reason Comments Consult c/o painful periods- earlier and longer, fatigue, painful intercourse Encounter Details Date Type Department Care Team Description 08/30/2021 Office Visit [facility] Elizabeth Mcintyre Menor rhagia with irregular cycle (Primary Dx); [facility] CNTerri Localized skin mass, lump, or swelling [place] [address] [place], [place] [address] [address] [place], [place] [phone] (Work) [phone] Social History Tobacco Use Types Packs/Day Years [...] How often do you attend sabianist or bahai services? Never 08/05/2021 Do you [...] at Date Recorded Female 11/09/2021 7:53 PM FURNACE COMBUSTION ANALYST COVID-19 Exposure Response Date Recorded In [...] her menses. Her menses is also painful. [place] has also become painful Patient's last menstrual [...] teen years sinus for bloody noses ??? STAINLESS STEEL FINISHER SURGERY not sure tubal ligation and ablasion [...] Status --------- ------ CBC with Platelets and R...[[id number]] Normal Final result Extra Green Top (Everett...[[id number]] In process Please view results for these [...] Obdulio Barrera MD [address] [facility] [address] [place] [address] (Estefanía casanova) 10/25/2022 PRE VISIT ENT Charo Burton MD Previsit [address] [place] [address] (Estefanía casanova) 10/25/2022 Office Visit ENT Charo Burton MD [address] [place], [place] [phone] (Wo rk) 10/25/2022 Office Visit ENT Provider, Jeannette Ent Dysphonia Sales And Service Change Leader 10/25/2022 Virtual Visit Pain & [place] [address] [place], [place] [address] 10/28/2022 Appointment Speech Therapy Anabel Chew, PROPELLER INSPECTOR [address] [phone] (Wo rk) 11/17/2022 Appointment Speech Therapy Anabel Chew, PROPELLER INSPECTOR [address] [phone] (Wo rk) 12/01/2022 Office Visit Pain & [place] [address] [place], [place] [address] (Wo rk) 12/23/2022 Office Visit Neurology Colby Yeung MD [address] [place], [place] [address] (Wo rk) Scheduled Referrals Name Type Priority [...] Volume Narrative 08/31/2021 3:[address] [facility] ULTRASOUND - PELVIC STAINLESS STEEL FINISHER- Transabdominal and Transvaginal ?? Referring MD: Elizabeth [...] Saavedra, DO ?? Obstetrics and Gynecology [facility] Elizabeth Mcintyre CNM IMG US ORDERABLES Extra Green Top (Everett Heparin) Tube (08/30/2021 12:06 PM CDT) athologist [...] City/State/ZIP Code Ph[place] [address] [facility] [address] [place] [address], [phone] [facility] [address], [address] CBC with Platelets and [...] LAB - BLOOD ORDERABLES Performing Organization Address City/[facility] [place] [address] [phone] [facility] [address] [place] [address], [facility] [address] INR (08/30/2021 12:06 PM CDT) P athologist Signature INR 0.85 0.85 - 1.15 08/30/2021 [facility] 5:37 PM CDT Specimen Anatomical Collection Method / Collection Time Recei edil Time (Source) Location / Volume Laterality Blood STRUCTURE OF RIGHT Venipuncture / 08/30/2021 12:06 UPPER LIMB / Unknown PM CDT 12:03 PM CDT Unknown Elizabeth Mcintyre [facility] LAB - BLOOD ORDERABLES Performing Organization Address City/[facility] Phon e Number [facility] [place], [place] [phone] [place] [facility] [phone] [place] [address] Lab (no room number, 1st floor of clinic) [facility] [place], [place] [phone] [facility] [address] [address] Lab (no room number, 1st [...] PM CDT 12:03 PM CDT Unknown Elizabeth Mcintyre CNM LAB - BLOOD ORDERABLES Performing Organization Address City/State/ZIP Code Phon e Number [facility] [place], [place] [phone] [place] [facility] [address] Lab (no room number, 1st floor of clinic) [facility] [place], [place] [phone] [facility] [place] [phone] [address] Lab (no room number, 1st [...] documented as of this encounter Care Teams Police Booking Officer Relationship Specialty Start Date End Date Aydee Burton, PCP - General Nurse Practitioner - 05/17/21 LABORATORY INSPECTOR CONSTRUCTION LABORER Family [address] [place], [place] [phone] Aydee Burton, Assigned PCP 04/28/21 LABORATORY INSPECTOR CONSTRUCTION LABORER [address] [place], [place] [address] Louisa Hood, Assigned Neuroscience 07/11/21 LABORATORY INSPECTOR CONSTRUCTION LABORER Provider [address] [place] [address] Se Levy, Lead Centrifugal Screen Tender 08/05/21 05/12/22 FINAL RAIL CUTTER Bernabe, [facility] 08/05/21 09/30/21 Worker Clari Ruiz Pharmacist Pharmacist 08/06/21 06/07/22 Jocelyn [facility] [address] [place] [address] [place], Assigned Sleep 08/01/21 Angel Turcios, Provider [address] [place] [address] Mago Swift, [facility] Lead Centrifugal Screen Tender Claims Agent Right Of Way - 08/05/21 Clinical documented as of this encounter
--- OUTSIDE RECORDS SUMMARY | 2022-10-21 09:04 | XMS_ITS | Encounter Summary ---
:1980 Author Organization [place] Address [address] [place] [address] Care Team Providers Name Role Phone Aydee Burton ADVERTISER CATTYMAN Primary Care Provider [phone] Aydee Burton ADVERTISER CATTYMAN Unavailable [phone] Louisa Hood ADVERTISER CATTYMAN Unavailable [phone] Se Levy TELEPHONE INFORMATION CLERK Unavailable Unavailable Anny Bernabe Unavailable Unavailable Clari Ruiz [facility] Unavailable [phone] Angel Hannah MD Unavailable Mago Swift HOSTAGE NEGOTIATOR Unavailable Encounter Details Date Type Department Care [...] How often do you attend mosque or mandaeism services? Never 08/05/2021 Do you [...] at Date Recorded Female 11/09/2021 7:53 PM IMPROVEMENT ENGINEER COVID-19 Exposure Response Date Recorded In the last month, have you been in contact with No / Unsure 08/31/2021 9:32 AM CDT someone who was confirmed or suspected to have Coronavirus / COVID-19? documented as of this encounter Plan of Treatment Upcoming Encounters Date Type Specialty Care Team Description 10/21/2022 Office Visit Pulmonology Obdulio Barrera MD [address] [place] [address] (Estefanía rk) 10/25/2022 PRE VISIT ENT Charo Burton MD Previsit [address] [place] [phone] (Estefanía casanova) 10/25/2022 Office Visit Charo Carter MD [address] [place] [phone] (Estefanía casanova) 10/25/2022 Office Visit ENT Provider, Jeannette Ent Dysphonia Human Resource Manager 10/25/2022 Virtual Visit Pain & [place] [address] [place], [place] [address] 10/28/2022 Appointment Speech Therapy Anabel Chew, DISABILITY SPECIALIST [address] [address] (Wo rk) 11/17/2022 Appointment Speech Therapy Anabel Chew, DISABILITY SPECIALIST [address] [phone] (Wo rk) 12/01/2022 Office Visit Pain [place] [address] [place], [place] [address] (Wo rk) 12/23/2022 Office Visit Neurology Colby Yeung MD [address] [place] [phone] (Wo rk) documented as of this encounter Visit Diagnoses Not on filedocumented in this encounter Additional Health Concerns Assessment Noted Time PHQ-9 Depression Total Score: 22 06/28/2021 7:03 AM CD T documented as of this encounter Care Teams Demand Planner Relationship Specialty Start Date End Date Aydee Burton, PCP - General Nurse Practitioner - 05/17/21 ADVERTISER CATTYMAN Family [address] [place] [phone] Aydee Burton, Assigned PCP 04/28/21 ADVERTISER CATTYMAN [address] [place] [phone] Louisa Hood, Assigned Neuroscience 07/11/21 ADVERTISER CATTYMAN Provider [address] [place] [address] Se Levy, Lead Retread Technician 08/05/21 05/12/22 TELEPHONE INFORMATION [facility] 08/05/21 09/30/21 Worker Clari Ruiz Pharmacist Pharmacist 08/06/21 06/07/[address] [facility] [address] [place] [address] Sethniall, Assigned Sleep 08/01/21 Angel Turcios, Provider [address] [place] [address] Mago Swift, [facility] Lead Retread Technician Forensics Analyst - 08/05/21 Clinical documented as of this encounter
--- OUTSIDE RECORDS SUMMARY | 2022-10-21 09:04 | XMS_ITS | Encounter Summary ---
:1980 Author Organization [place] Address [address] [place] [address] Care Team Providers Name Role Phone yAdee Burton NOVELTY CANDY MAKER TYPESETTERS PRINTER Primary Care Provider Aydee Burton NOVELTY CANDY MAKER TYPESETTERS PRINTER Unavailable [phone] Louisa Hood NOVELTY CANDY MAKER TYPESETTERS PRINTER Unavailable [phone] Se Levy EXECUTIVE SERVICES ADMINISTRATOR Unavailable Unavailable Anny Bernabe Unavailable Unavailable Clari Ruiz [facility] Unavailable [phone] Angel Hannah MD Unavailable Lesly Celaya MD Unavailable Elizabeth Mcintyre [facility] Unavailable Mago Swift SKILL LABOR Unavailable Encounter Details Date Type Department Care Team Description 09/08/2021 [facility] Only [facility] Lesly Celaya Encou nter for Surgery Clinic screening for other [place] [address] [facility] viral diseases [address] [place] [place] [address] [address] [place], [place] [phone] (Wo rk) [address] [phone] Social History Tobacco Use Types Packs/Day Years [...] How often do you attend anabaptism or jew services? Never 08/05/2021 Do you [...] at Date Recorded Female 11/09/2021 7:53 PM CARDIOVASCULAR INVASIVE SPECIALIST COVID-19 Exposure Response Date Recorded In the last month, have you been in contact with No / Unsure 08/31/2021 9:32 AM CDT someone who was confirmed or suspected to have Coronavirus / COVID-19? documented as of this encounter Plan of Treatment Upcoming Encounters Date Type Specialty Care Team Description 10/21/2022 Office Visit Pulmonology Obdulio Barrera MD [address] [place] [address] (Wo rk) 10/25/2022 PRE VISIT ENT Charo Burton MD Previsit [address] [place] [phone] (Wo rk) 10/25/2022 Office Visit Charo Carter MD [address] [place] [phone] (Wo rk) 10/25/2022 Office Visit ENT Provider, Ent Dysphonia Agriculture Internship 10/25/2022 Virtual Visit Pain & [place] [address] [place], [place] [address] 10/28/2022 Appointment Speech Therapy Anabel Chew, SPORTS LEADERSHIP INSTRUCTOR [address] [phone] (Wo rk) 11/17/2022 Appointment Speech Therapy Anabel Chew, SPORTS LEADERSHIP INSTRUCTOR [address] [phone] (Wo rk) 12/01/2022 Office Visit Pain [place] [address] [place], [place] [address] (Wo rk) 12/23/2022 Office Visit Neurology Colby Yeung MD [address] [place] [address] (Wo rk) documented as of this encounter Results Asymptomatic COVID-19 Virus (Coronavirus) by PCR Nose (10/08/2021 11:32 AM CARDIOVASCULAR INVASIVE SPECIALIST) [facility] Method Time Signature SARS CoV2 PCR Negative Negative, 10/09/2021 [facility] Testing sent to 1:16 PM CARDIOVASCULAR INVASIVE SPECIALIST LABORATORY reference lab. Results will be returned via unsolicited result Comment: NEGATIVE: SARS-CoV-2 (COVID-19) RNA not detected, presumed negative. Specimen Anatomical Collection Method Collection Time Receive d Time (Source) Location / / Volume Laterality Swab NASAL STRUCTURE / Non-blood 10/08/2021 11:32 2020 Unknown Collection / AM CARDIOVASCULAR INVASIVE SPECIALIST 11:48 AM CARDIOVASCULAR INVASIVE SPECIALIST Unknown Narrative [facility] - 10/09/2021 1:[address] Testing was performed using the Aptima SARS-CoV-2 Assay on the [employer] Headhunting Instrument System. Additional in formation about this [...] Code Phon e Number [facility] [place] [phone] Diag. Lab [address] [facility], Room D297 [facility] Infectious [place], [place] [phone] Diseases Diagnostic [phone], [facility] Lab (IDDL) [address] [facility], Room D297 documented in this encounter Visit Diagnoses Diagnosis Encounter for screening for other viral diseases documented in this encounter Additional Health Concerns Assessment Noted Time PHQ-9 Depression Total Score: 22 06/28/2021 7:03 AM CD T documented as of this encounter Care Teams Topstitcher Zigzag Relationship Specialty Start Date End Date Aydee Burton, PCP - General Nurse Practitioner - 05/17/21 NOVELTY CANDY MAKER TYPESETTERS PRINTER Family [address] [place] [address] [phone] Aydee Burton, Assigned PCP 04/28/21 NOVELTY CANDY MAKER TYPESETTERS PRINTER [address] [place], [place] [phone] [place] Louisa Recinos, Assigned Neuroscience 07/11/21 NOVELTY CANDY MAKER TYPESETTERS PRINTER Provider [address] [place], [place] [phone] Se Levy, Lead Airport Attendant 08/05/21 05/12/22 [facility] 08/05/21 09/30/21 Worker Clari Ruiz Pharmacist Pharmacist 08/06/21 06/07/22 [facility] [address] [place], [place] [address] [place], Assigned Sleep 08/01/21 Angel Turcios, Provider [address] [place], [place] [address] Lesly Celaya MD Assigned Surgical 09/05/[address] Provider [place], [place] [phone] Elizabeth Mcintyre CNM Assigned OBGYN 09/05/21 11/06/21 [address] [facility] Provider [place], [place] [phone] Mago Swift, [facility] Lead Airport Attendant Advertising Vice President - 08/05/21 Clinical documented as of this encounter
--- OUTSIDE RECORDS SUMMARY | 2022-10-21 09:04 | XMS_ITS | Encounter Summary ---
:1980 Author Organization [facility] Address [address] [place] [address] Care Team Providers Name Role Phone Aydee Nam STAMP ANALYST HELICOPTER PILOT INSTRUCTOR Primary Care Provider [phone] Aydee Nam STAMP ANALYST HELICOPTER PILOT INSTRUCTOR Unavailable [phone] Louisa Hood STAMP ANALYST HELICOPTER PILOT INSTRUCTOR Unavailable [phone] Se Levy MULTIPLE DRILL OPERATOR Unavailable Unavailable Clari Ruiz [facility] Unavailable [phone] Angel Hannah MD Unavailable Lesly Celaya MD Unavailable Elizabeth Mcintyre [facility] Unavailable Tawana Patel MA Unavailable Unavailable Mago Swift SAP BPC ARCHITECT Unavailable Reason for Referral CV Testing (Routine) - Closed Specialty Diagnoses / Procedures Referred By Contact Refer red To Contact Diagnoses Shortness of breath Feeling of chest tightness Aydee Nam APRN Procedures Exercise Stress Test - Adult HELICOPTER PILOT INSTRUCTOR [address] [place] [address] Referral ID Status Reason Start Date Expiration Date Visits Requ ested Visits Authorized [id number] Closed 10/05/2021 10/05/2022 1 1 ICAL DEPENDENCY ATTENDANT CV Testing (Routine) - Closed Specialty Diagnoses / Procedures Referred By Contact Refer red To Contact Diagnoses Shortness of breath Feeling of chest tightness Aydee Nam APRN Procedures Echocardiogram Complete ZZHC TTE W/DOPPLER, COMPLETE ZZHC ECHO COMPLETE W DOPPLER W CONTRAST ZZHC ECHO COMPLETE W DOPPLER W/O CONTRAST ZZHC IV PUSH SINGLE, INITIAL SUBSTANCE ZZHC US GUIDE FOR PERICARDIOCENTESIS HELICOPTER PILOT INSTRUCTOR ZZHC ECHO MYOCARD BX ZZC INJECTION, PERFLUTREN LIPID MICROSPHERES, PER ML ZZHC STATISTIC IV PUSH SINGLE INITIAL SUBSTANCE ID ECHO MYOCARD BX ID INJECTION, PERFLUTREN LIPID MICROSPHERES, PER ML ID TTE W/DOPPLER, COMPLETE [address] ID IV PUSH SINGLE, INITIAL S UBSTANCE ID TTE W/DOPPLER, COMPLETE ID TTE W/DOPPLER, COMPLETE HC US GUIDE FOR PERICARDIOCENTESIS HC ECHO MYOCARD BX HC IV PUSH SINGLE, INITIAL SUBSTANCE HC STATISTIC IV PUSH SINGLE INITIAL SUBSTANCE PRIOR IHSAN AGUSTIN [address] HC ECHO COMPLETE W DOPPLER W CONTRAST HC ECHO COMPLETE W DOPPLER W/O CONTRAST Referral ID Status Reason Start Date Expiration Date Visits Requ ested Visits Authorized [id number] Closed 10/05/2021 10/05/2022 1 1 ICAL DEPENDENCY ATTENDANT Reason for Visit Reason Comments Pre-Op Exam Encounter Details Date Type Department Care Team Description 10/05/2021 [facility] Preoper[facility] ve [facility] (Primary Dx); [facility] [place] APRN CNP Bilateral occipital neuralgia; [address] Lipoma of skin and subcutaneous tissue; [address] Shortness of breath; [place], [place] PRIOR IHSAN AGUSTIN [address] Feeling of chest tightness; [id number] Need for influenza vaccination; [phone] Need for COVID-19 vaccine Social History Tobacco [...] How often do you attend caodaism or hinduism services? 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/2021 7:53 PM CHEMICAL DEPENDENCY ATTENDANT COVID-19 Exposure Response Date Recorded In the last month, have you been in contact with No / Unsure 10/05/2021 8:10 AM CHEMICAL DEPENDENCY ATTENDANT someone who was confirmed or suspected to have Coronavirus / COVID-19? documented as of this encounter Last Filed Vital Signs Vital Sign Reading Time Taken Comments Blood Pressure 116/70 10/05/2021 8:19 AM CHEMICAL DEPENDENCY ATTENDANT Pulse 110 10/05/2021 8:19 AM CHEMICAL DEPENDENCY ATTENDANT Temperature 36.3 ??C (97.4 ??F) 10/05/2021 8:19 AM CHEMICAL DEPENDENCY ATTENDANT Respiratory Rate - - Oxygen Saturation 98% 10/05/2021 8:19 AM CHEMICAL DEPENDENCY ATTENDANT Inhaled Oxygen Concentration - - Weight 92.5 kg (204 lb) 10/05/2021 8:19 AM CHEMICAL DEPENDENCY ATTENDANT Height 170.2 cm (5' 7) 10/05/2021 8:19 AM CHEMICAL DEPENDENCY ATTENDANT Body Mass Index 31.95 10/05/2021 8:19 AM CHEMICAL DEPENDENCY ATTENDANT documented in this encounter Patient Instructions Patient InstructionsCyril Aydee Bridgeste, ELADIO HELICOPTER PILOT INSTRUCTOR - 10/05/2021 8:10 AM CHEMICAL DEPENDENCY ATTENDANT Images from the original note were not [...] color of the skin over the lipoma [employer] last reviewed this educational content on 05/13/2019 ?? [id number] [employer]. All rights reserved. This information is not [...] list of medicines, including herbal treatments and ymwd-flu-vfplzvc drugs ?? Whether the patient has a [...] having surgery. (If you don't have insurance,call [phone].) ?? Call your clinic if there's any [...] your health care provider. Copyright ?? 2018 [facility]. All rights reserved. Clinically reviewed by Tika Garrett MD. [employer] [id number] - REV 03/02. ICAL DEPENDENCY ATTENDANT documented in this encounter Progress Notes Aydee Nam APRN CNP - 10/05/2021 8:10 AM CST Images from the original note were not included. [address] [address] Primary Provider: Aydee Nam Pre-op Performing Provider: AYDEE NAM PREOPERATIVE EVALUATION: Today's date: 10/05/2021 Marta Hawkins is a 41 year old female who presents for a preoperative evaluation. Surgical Information: Surgery/Procedure: EXCISION MULTIPLE LIPOMAS - bilateral legs, arms and trunk Surgery Location: [facility] Surgeon: Dr Lesly Celaya Surgery Date: 10/12/2021 Time of Surgery: 1:00pm Where patient plans to recover: At home with family Fax number for surgical facility: Note does not need to be faxed, will be available electronically in [facility]. Type of Anesthesia Anticipated: General Assessment & Plan The proposed surgical procedure is considered INTERMEDIATE risk. Preoperative examination Lipoma of skin and subcutaneous tissue Cleared for surgery without concerns. - HCG Qual, Urine ([id number]) Bilateral occipital neuralgia Shortness of breath Feeling [...] to patient to review. Preoperative Review of BOILER MECHANIC: BOILER MECHANIC reviewed - controlled substances reflected in medication [...] GENITOURINARY SURGERY Tubal ligation and ablasion ??? SEMICONDUCTOR PROCESSOR SURGERY not sure tubal ligation and ablasion [...] evaluation report is provided to requesting physician. ICAL DEPENDENCY ATTENDANT documented in this encounter Plan of Treatment Upcoming Encounters Date Type Specialty Care Team Description 10/21/2022 Office Visit Pulmonology HollyObdulio moyer MD [address] [facility] [address] [place], [place] [address] (Wo rk) 10/25/2022 PRE VISIT ENT Charo Burton MD Previsit [address] [place] [address] [phone] (Wo rk) 10/25/2022 Office Visit Charo Carter MD [address] [place] [address] [phone] (Wo rk) 10/25/2022 Office Visit ENT Provider, Ent Dysphonia Air Defense Control Officer 10/25/2022 Virtual Visit Pain & [place] [address] [place], [place] [address] 10/28/2022 Appointment Speech Therapy Anabel Chew SLP [address] [place] [address] (Wo rk) 11/17/2022 Appointment Speech Therapy Anabel Chew SLP [place] [id number] [facility] [address] [place], [place] [phone] (Wo rk) 12/01/2022 Office Visit Pain [place] [address] [facility] [address] [place], [place] [address] (Wo rk) 12/23/2022 Office Visit Neurology Colby Yeung MD [address] [place] [place], [place] [address] (Wo rk) documented as of this encounter Procedures Procedure Name Priority Date/Time Associated Diagnosis Comme nts EKG 12-LEAD COMPLETE Routine 10/05/2021 8:48 AM Shortnes s of breath Results for this W/READ - CLINICS CHEMICAL DEPENDENCY ATTENDANT Feeling of chest procedu re are in tightness the results section. HCG QUALITATIVE Routine 10/05/2021 8:21 AM Preoperative Result s for this URINE CHEMICAL DEPENDENCY ATTENDANT examination procedure are i n the results section. documented in this encounter Results Exercise Stress Test - Adult (11/04/2021 8:30 AM CHEMICAL DEPENDENCY ATTENDANT) Anatomical Region Laterality Modality Other Specimen (Source) Anatomical Collection Method Collection Time Re ceived Time Location / / Volume Laterality 11/04/2021 8:30 AM CHEMICAL DEPENDENCY ATTENDANT Narrative 11/04/2021 11:51 AM CHEMICAL DEPENDENCY ATTENDANT [id number]^CYRIL^AYDEE^VANESSA [facility] Echocardiography Laboratory [address] [place] [address] Name: MARTA HAWKINS : 1980 Study Date: 11/04/2021 08:30 AM Age: 41 yrs Gender: Female Patient Location: [facility] Reason For Study: Shortness of breath, [...] normal. Stress The patient exercised 7:12. RPP 09714. There was a normal BP response to [...] note might be different from the original. [id number]^CYRIL^AYDEE^VANESSA [facility] Echocardiography Laboratory [address] [place] [address] Name: MARTA HAWKINS : 1980 Study Date: 11/04/2021 08:30 AM Age: 41 yrs Gender: Female Patient Location: [facility] Reason For Study: Shortness of breath, [...] normal. Stress The patient exercised 7:12. RPP 38424. There was a normal BP response to [...] 3:00 164 134/58Chest Tightness: 4/10 Chest Tightness/pain: /10; Pt. is dizz y. Nelson Stage 3 1:12 169 / Treadmill Score: 3 ( Moderate Risk) RecoveryR 20:00 110 118/82Chest tightnes s: 12/23; FAC: Below Average Stress Duration: 7:12 mm:ss * Recovery Time: 20:00 mm:ss Maximum Stress HR: 169 bpm * METS: 9 Report approved by: Arvin Amezcua MD on 11/04/2021 11:51 AM Aydee Nam STAMP ANALYST HELICOPTER PILOT INSTRUCTOR CV CARDIAC SERVICES [facility] ECHO COMPLETE (11/04/2021 8:23 AM CHEMICAL DEPENDENCY ATTENDANT) P athologist Signature LVEF 55-60% CARDIOLOGY RESULTS Anatomical Region Laterality Modality Echocardiography Specimen (Source) Anatomical Collection Method Collection Time Re ceived Time Location / / Volume Laterality 11/04/2021 7:45 AM CHEMICAL DEPENDENCY ATTENDANT Narrative 11/04/2021 9:25 AM CHEMICAL DEPENDENCY ATTENDANT [id number]^CYRIL^AYDEE^VANESSA [facility] Echocardiography Laboratory [address] [place] [address] Name: MARTA HAWKINS : 1980 Study Date: 11/04/2021 07:45 AM Age: 41 yrs Gender: Female Patient Location: [facility] Reason For Study: Shortness of breath, F [...] note might be different from the original. [id number]^CYRIL^AYDEE^VANESSA [facility] Echocardiography Laboratory [address] [place] [address] Name: MARTA HAWKINS : 1980 Study Date: 11/04/2021 07:45 AM Age: 41 yrs Gender: Female Patient Location: [facility] Reason For Study: Shortness of breath, F [...] approved by: Charlie Barnett 11/04/2021 09:25 AM yAdee Nam APRN, CNP CV ECHO ORDERABLES EKG 12-lead complete w/read - Clinics (10/05/2021 8:48 AM CHEMICAL DEPENDENCY ATTENDANT) Narrative This result has an attachment that is no t available. Aydee Nam APRN HELICOPTER PILOT INSTRUCTOR ECG ORDERABLES HCG Qual, Urine ([id number]) (10/05/2021 8:21 AM CHEMICAL DEPENDENCY ATTENDANT) [facility] Method Time Signature hCG Urine Negative Negative NIKOLAS 10/05/2021 [facility] Qualitative 8:33 AM CHEMICAL DEPENDENCY ATTENDANT Comment: This test is for screening purp oses. Results should be interpreted along with the clinical picture. Confirmation testing is available if warranted by ordering [id number], HCG Quantitative . Specimen Anatomical Collection Method Collection Time Receive d Time (Source) Location / / Volume Laterality Urine MID-STREAM URINE Non-blood 10/05/2021 8:21 AM 10/05 8:26 SPECIMEN / Unknown Collection / CHEMICAL DEPENDENCY ATTENDANT AM CHEMICAL DEPENDENCY ATTENDANT Unknown Aydee Nam APRN HELICOPTER PILOT INSTRUCTOR LAB - URINE ORDERABLES Performing Organization Address City/State/ZIP Code Phon [place] [address] [phone] [facility] [address] [facility] S. E. Lab (no room number, 1st floor of clinic) [place] [address], [facility] Lab [address] [facility] S. E. Lab (no room number, 1st [...] documented as of this encounter Care Teams Risk Assessor Relationship Specialty Start Date End Date Aydee Nam, PCP - General Nurse Practitioner - 05/17/21 STAMP ANALYST HELICOPTER PILOT INSTRUCTOR Family [address] [place] [address] [phone] Aydee Nam, Assigned PCP 04/28/21 STAMP ANALYST HELICOPTER PILOT INSTRUCTOR [address] [place] [address] 477672 Louisa Hood, Assigned Neuroscience 07/11/21 STAMP ANALYST HELICOPTER PILOT INSTRUCTOR Provider [address] [place] [address] [phone] Se Levy, Lead Logistics Program Manager 08/05/21 05/12/22 Clari Francois Pharmacist Pharmacist 08/06/21 06/07/22 Jocelyn, [facility] [address] [place], [place] [phone] aCmden, Tone Sleep 08/01/21 Angel Turcios, Provider [address] [place] [address] Lesly Celaya MD Assigned Surgical 09/05/[address] [place] [address] Elizabeth Mcintyre CNM Assigned OBGYN 09/05/21 11/06/21 [id number] [facility] [place] [address] Tawana Patel MA [facility] 09/30/21 Worker Mago Swift LICSW Lead Logistics Program Manager Basket Maker - 08/05/21 Clinical documented as of this encounter
--- OUTSIDE RECORDS SUMMARY | 2022-10-21 09:04 | XMS_ITS | Encounter Summary ---
:1980 Author Organization [facility] Address [address] [place] [address] Care Team Providers Name Role Phone Aydee Burton MANAGER SIGN VULCANIZER Primary Care Provider Aydee Burton MANAGER SIGN VULCANIZER Unavailable [phone] Louisa Hood MANAGER SIGN VULCANIZER Unavailable [phone] Se Levy TRACK REPAIRER HELPER Unavailable Unavailable Anny Bernabe Unavailable Unavailable Clari Ruiz [facility] Unavailable [phone] Angel Hannah MD Unavailable Lesly Celaya MD Unavailable Elizabeth Mcintyre CN Unavailable Mago Swift NURSING HOME ADMISSIONS DIRECTOR Unavailable Reason for Visit Reason Onset Date Comments Referral 09/17/2021 New Evaluation for C omprehensive Services Encounter Details Date Type Department Care Team Description 09/17/2021 Telephone [facility] Management Referra l (New Pain Management Program, [facility]) [address] [place] [phone] Social History Tobacco Use Types Packs/Day [...] How often do you attend worship or gnosticist services? 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/2021 7:53 PM MANAGER ORACLE RETAIL COVID-19 Exposure Response Date Recorded In the [...] are we to bill for this appointment? [facility] 7. Informed pt of cancellation (48 hour) [...] (e.g. Offensive language/raised voice)? N/A Belinda [address]te[address] Worker [facility] documented in this encounter Plan of Treatment Upcoming Encounters Date Type Specialty Care Team Description 10/21/2022 Office Visit Pulmonology Obdulio Barrera MD [address] [place] [address] [phone] (Estefanía rk) 10/25/2022 PRE VISIT Charo Carter MD Previsit [address] [place] [address] [phone] (Estefanía casanova) 10/25/2022 Office Visit Charo Carter MD [address] [place] [address] [phone] (Estefanía casanova) 10/25/2022 Office Visit ENT Provider, Jeannette Ent Dysphonia Senior Data Warehouse Architect 10/25/2022 Virtual Visit Pain & [place] [address] [place], [place] [address] 10/28/2022 Appointment Speech Therapy Anabel Chew, ZOO DIRECTOR [address] [phone] (Wo rk) 11/17/2022 Appointment Speech Therapy Anabel Chew, ZOO DIRECTOR [address] [phone] (Wo rk) 12/01/2022 Office Visit Pain & [place] [address] [place], [place] [address] (Wo rk) 12/23/2022 Office Visit Neurology Colby Yeung MD [address] [place], [place] [address] (Wo rk) documented as of this encounter Visit Diagnoses Not on filedocumented in this encounter Additional Health Concerns Assessment Noted Time PHQ-9 Depression Total Score: 22 06/28/2021 7:03 AM CD T documented as of this encounter Care Teams Implementation Manager Relationship Specialty Start Date End Date Aydee Burton, PCP - General Nurse Practitioner - 05/17/21 MANAGER SIGN VULCANIZER Family [address] [place] [address] [phone] Aydee Burton, Assigned PCP 04/28/21 MANAGER SIGN VULCANIZER [address] [place] [address] [phone] Louisa Hood, Assigned Neuroscience 07/11/21 MANAGER SIGN VULCANIZER Provider [address] [place] [address] [phone] Se Levy, Lead Industrial Retrofit Designer 08/05/21 05/12/22 [facility] 08/05/21 09/30/21 Worker Clari Ruiz Pharmacist Pharmacist 08/06/21 06/07/22 [facility] [address] [place] [address] [place], Assigned Sleep 08/01/21 Angel Turcios, Provider [address] [place] [address] Lesly Celaya MD Assigned Surgical 09/05/[address] [place] [address] Elizabeth Mcintyre CNM Assigned OBGYN 09/05/21 11/06/21 [id number] [facility] [place] [address] Mago Swift NURSING HOME ADMISSIONS DIRECTOR Lead Industrial Retrofit Designer Print Room Worker - 08/05/21 Clinical documented as of this encounter
--- OUTSIDE RECORDS SUMMARY | 2022-10-21 09:04 | XMS_ITS | Encounter Summary ---
:1980 Author Organization [facility] Address [address] [place] [address] Care Team Providers Name Role Phone yAdee Burton MANAGER WINTER SEE SUPERVISOR Primary Care Provider Aydee Burton MANAGER WINTER SEE SUPERVISOR Unavailable [phone] Louisa Hood MANAGER WINTER SEE SUPERVISOR Unavailable [phone] Se Levy LEAD ASSISTANT MANAGER Unavailable Unavailable Anny Bernabe Unavailable Unavailable Clari Ruiz [facility] Unavailable [phone] Angel Hannah MD Unavailable Mago Swift ARTILLERY OR NAVAL GUNFIRE OBSERVER Unavailable Encounter Details Date Type Department Care Team Description 08/25/2021 [facility] Depre ssion, major, recurrent, moderate (H) (Primary Dx); Mental Health & ARTILLERY OR NAVAL GUNFIRE OBSERVER PTSD (post-traumatic stress disorder) Addiction Sri [address] [facility] [address] [place] IHSAN FIERRO [address] [phone] [address] (Work) IHSAN Fierro [address] [phone] Social History Tobacco Use Types Packs/Day Years [...] often do you attend latter day or sabianism services? 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/2021 7:53 PM SENIOR MICROSOFT CONSULTANT documented as of this encounter Progress Notes Ailsa Soto, ARTILLERY OR NAVAL GUNFIRE OBSERVER - 08/25/2021 12:30 PM CDT [facility] Psychiatry [facility] ([facility]) August 25, 2021 Behavioral Health Clinician Progress Note Patient Name: Marta Nadeempreeti Telemedicine Visit: The patient's condition can be safely assessed and treated via synchronous audioand visual telemedicine encounter. Reason for Telemedicine Visit: Services only offered telehealth Originating Site (Patient Location): Patient's home Distant Site (Provider Location): [facility] Clinics: [place] Consent: The patient/guardian has verbally consented to: the potential risks and benefits of telemedicine (video visit) versus in person care; bill my insurance or make self-payment for services provided; and responsibility for payment of non-covered services. Mode of Communication: Video Conference via [employer] As the provider I attest to compliance with applicable laws and regulations related to telemedicine. Service Type: Individual Service Location: [place] [facility] / Email (patient reached) Session Start Time: [...] to get rid of a hangover? (Eye technical operations manager) 0 CAGE-AID SCORE 0 DATA Extended Session [...] Tx: Scheduled to see [facility] in [place] but they called to reschedule due to [...] date to begin behavior change Motivational Interviewing NE Intervention: Co-Developed Goal: improve sleep, Expressed Empathy/Understanding, [...] or depressed, Anger outbursts. Fausto: No Symptoms. Nocatee more hyper lately but not feel like [...] Associated Psychological Distress excessive bleeding- appt with MIX HOUSE TENDER on 08/30/2021 Assessment: Current Emotional / Mental [...] time, however patient was encouraged to call [place] [phone] should there be a change in any of these risk factors. Appearance: Appropriate Eye Contact: Fair Psychomotor Behavior: Normal Attitude: Cooperative Orientation: All Speech Rate / Production: Normal Volume: Normal Mood: Anxious Depressed Irritable Affect: Labile Thought Content: Clear Thought Form: Coherent Logical Insight: Fair Diagnoses: 1. Depression, major, recurrent, moderate (H) 2. PTSD (post-traumatic stress disorder) Collateral Reports Completed: Communicated with: [facility] psychiatry team Plan: (Homework, other): Patient will call [facility] to schedule with a different therapist and follow up on medical needs. Patient was given information about behavioral services and encouraged to schedule a follow up appointment with the clinic [facility] in conjunction with next [facility] appointment. She was also given information about mental health symptoms and treatment options . CD Recommendations: No indications of CD issues. ONEIDA Ford August 25, 2021 documented in this encounter Plan of Treatment Upcoming Encounters Date Type Specialty Care Team Description 10/21/2022 Office Visit Pulmonology Obdulio Barrera MD [address] [place] [address] (Wo rk) 10/25/2022 PRE VISIT ENT Charo Burton MD Previsit [address] [place] [address] (Wo rk) 10/25/2022 Office Visit ENT Charo Burton MD [address] [place] [address] (Wo rk) 10/25/2022 Office Visit ENT Provider, Ent Dysphonia Drywall Hanger Helper 10/25/2022 Virtual Visit Pain & [place]iative [place] [address] [place], [place] [address] 10/28/2022 Appointment Speech Therapy Anabel Chew, MOTEL MAID [address] [phone] (Wo rk) 11/17/2022 Appointment Speech Therapy Anabel Chew, MOTEL MAID [address] [phone] (Wo rk) 12/01/2022 Office Visit Pain & [place] [address] [place], [place] [address] (Wo rk) 12/23/2022 Office Visit Neurology Colby Yeung MD [address] [place], [place] [phone] (Wo rk) documented as of this encounter Visit Diagnoses Diagnosis Depression, major, recurrent, moderate ( H) - Primary Major depressive disorder, recurrent epi sode, moderate PTSD (post-traumatic stress disorder) Posttraumatic stress disorder documented in this encounter Additional Health Concerns Assessment Noted Time PHQ-9 Depression Total Score: 06/28/2021 7:03 AM CD T documented as of this encounter Care Teams Vp Emerging Media Relationship Specialty Start Date End Date Aydee Burton, PCP - General Nurse Practitioner - 05/17/21 MANAGER WINTER SEE SUPERVISOR Family [address] [place] [address] Aydee Burton, Assigned PCP 04/28/21 MANAGER WINTER SEE SUPERVISOR [address] [place], [place] [phone] Louisa Hood, Assigned Neuroscience 07/11/21 MANAGER WINTER SEE SUPERVISOR Provider [address] [place], [place] [phone] Se Levy, Lead Preventive Maintenance Coordinator 08/05/21 05/12/22 [facility] 08/05/21 09/30/21 Worker Clari Ruiz Pharmacist Pharmacist 08/06/21 06/07/22 Jocelyn [facility] [address] [place], [place] [phone] [place], Assigned Sleep 08/01/21 Angel Turcios, Provider [address] [place] [address] Mago Swift, [facility] Lead Preventive Maintenance Coordinator College Athlete - 08/05/21 Clinical documented as of this encounter
--- OUTSIDE RECORDS SUMMARY | 2022-10-21 09:04 | XMS_ITS | Encounter Summary ---
:1980 Author Organization [facility] Address [address] [place] [address] Care Team Providers Name Role Phone Aydee Burton COMPUTER SERVICE TECHNICIAN SUPERVISOR AUDIT CLERKS Primary Care Provider Aydee Burton COMPUTER SERVICE TECHNICIAN SUPERVISOR AUDIT CLERKS Unavailable [phone] Louisa Hood COMPUTER SERVICE TECHNICIAN SUPERVISOR AUDIT CLERKS Unavailable [phone] Se Levy TRIMMING MACHINE OPERATOR Unavailable Unavailable Anny Bernabe Unavailable Unavailable Clari Ruiz [facility] Unavailable [phone] Angel Hannah MD Unavailable Mago Swift PLANER HAND Unavailable Reason for Visit Reason Comments Consult Several skin masses Encounter Details Date Type Department Care Team Description [facility] subcutaneous tissue [place] [address] (Primary Dx) [address] [facility] [address] [place] [address] [phone] Social History Tobacco Use Types Packs/Day Years [...] How often do you attend hinduism or caodaism services? Never 08/05/2021 Do you [...] at Date Recorded Female 11/09/2021 7:53 PM BEAM DEPARTMENT SUPERVISOR COVID-19 Exposure Response Date Recorded In [...] teen years sinus for bloody noses ??? SENIOR CLINICAL RESEARCH SCIENTIST SURGERY not sure tubal ligation and ablasion [...] Visit Pulmonology Obdulio Barrera MD [address] [phone] (Wo rk) 10/25/2022 PRE VISIT ENT Charo Burton MD Previsit [address] [place] [address] (Wo rk) 10/25/2022 Office Visit ENT Charo Burton MD [address] [place] [address] [phone] (Wo rk) 10/25/2022 Office Visit ENT Provider, Ent Dysphonia Veterinary Virus Serum Inspector 10/25/2022 Virtual Visit Pain & [place] [address] [place], [place] [address] 10/28/2022 Appointment Speech Therapy Anabel Chew SLP [address] [phone] (Wo rk) 11/17/2022 Appointment Speech Therapy Anabel Chew SLP [address] [phone] (Wo rk) 12/01/2022 Office Visit Pain [place] [address] [place], [place] [address] (Wo rk) 12/23/2022 Office Visit Neurology Colby Yeung MD [address] [place], [place] [phone] (Wo rk) documented as of this encounter Visit Diagnoses Diagnosis Lipoma of skin and subcutaneous tissue - Primary Lipoma of other skin and subcutaneous ti ssue documented in this encounter Additional Health Concerns Assessment Noted Time PHQ-9 Depression Total Score: 06/28/2021 7:03 AM CD T documented as of this encounter Care Teams Nuclear Process Engineer Relationship Specialty Start Date End Date Aydee Burton, PCP - General Nurse Practitioner - 05/17/21 COMPUTER SERVICE TECHNICIAN SUPERVISOR AUDIT CLERKS Family [address] [place] [address] Aydee Burton, Assigned PCP 04/28/21 COMPUTER SERVICE TECHNICIAN SUPERVISOR AUDIT CLERKS [address] [place], [place] [phone] Louisa Hood, Assigned Neuroscience 07/11/21 COMPUTER SERVICE TECHNICIAN SUPERVISOR AUDIT CLERKS Provider [address] [place] [address] Se Levy, Lead Can Coverer 08/05/21 05/12/22 [facility] 08/05/21 09/30/21 Worker Clari Ruiz Pharmacist Pharmacist 08/06/21 06/07/22 Jocelyn [facility] [address] [place], [place] [phone] [place], Assigned Sleep 08/01/21 Angel Turcios, Provider [address] [place] [address] Mago Swift PLANER HAND Lead Can Coverer Laser Specialist - 08/05/21 Clinical documented as of this encounter
--- OUTSIDE RECORDS SUMMARY | 2022-10-21 09:04 | XMS_ITS | Encounter Summary ---
:1980 Author Organization [facility] Address [address] [place] [address] Care Team Providers Name Role Phone Aydee Burton ALARM SECURITY OR SURVEILLANCE MONITOR TRANSCRIPTION MANAGER Primary Care Provider [phone] Aydee Burton ALARM SECURITY OR SURVEILLANCE MONITOR TRANSCRIPTION MANAGER Unavailable [phone] Louisa Hood ALARM SECURITY OR SURVEILLANCE MONITOR TRANSCRIPTION MANAGER Unavailable [phone] Se Levy ROLLED GOLD PLATER Unavailable Unavailable Anny Bernabe Unavailable Unavailable Clari Ruiz [facility] Unavailable [phone] Angel Hannah MD Unavailable Mago Swift LAST MODEL MAKER Unavailable Encounter Details Date Type Department [...] How often do you attend mu-ism or mormon services? Never 08/05/2021 Do you [...] at Date Recorded Female 11/09/2021 7:53 PM PHARMACY TECHNICIAN ASSISTANT COVID-19 Exposure Response Date Recorded In the last month, have you been in contact with No / Unsure 08/30/2021 2:54 PM CDT someone who was confirmed or suspected to have Coronavirus / COVID-19? documented as of this encounter Plan of Treatment Upcoming Encounters Date Type Specialty Care Team Description 10/21/2022 Office Visit Pulmonology Obdulio Barrera MD [address] [place] [address] (Estefanía rk) 10/25/2022 PRE VISIT ENT Charo Burton MD Previsit [address] [place] [address] [phone] (Estefanía casanova) 10/25/2022 Office Visit Charo Carter MD [address] [place] [address] [phone] (Estefanía casanova) 10/25/2022 Office Visit ENT Provider, Jeannette Ent Dysphonia Bell Captain 10/25/2022 Virtual Visit Pain & [place]iative [place] [address] [place], [place] [address] 10/28/2022 Appointment Speech Therapy Anabel Chew, SOCIETY EDITOR [address] [address] (Wo rk) 11/17/2022 Appointment Speech Therapy Anabel Chew, SOCIETY EDITOR [address] [address] (Wo rk) 12/01/2022 Office Visit Pain & [place] [address] [place], [place] [address] (Wo rk) 12/23/2022 Office Visit Neurology Colby Yeung MD [address] [place] [address] (Wo rk) documented as of this encounter Visit Diagnoses Not on filedocumented in this encounter Additional Health Concerns Assessment Noted Time PHQ-9 Depression Total Score: 22 06/28/2021 7:03 AM CD T documented as of this encounter Care Teams Printing Assistant Relationship Specialty Start Date End Date Aydee Burton, PCP - General Nurse Practitioner - 05/17/21 ALARM SECURITY OR SURVEILLANCE MONITOR TRANSCRIPTION MANAGER Family [address] [place] [phone] Aydee Burton, Assigned PCP 04/28/21 ALARM SECURITY OR SURVEILLANCE MONITOR TRANSCRIPTION MANAGER [address] [place] [phone] Louisa Hood, Assigned Neuroscience 07/11/21 ALARM SECURITY OR SURVEILLANCE MONITOR TRANSCRIPTION MANAGER Provider [address] [place] [address] Se Levy, Lead Farm Consultant 08/05/21 05/12/22 ROLLED GOLD PLATERYEFRI [facility]/05/21 09/30/21 Worker Clari Ruiz Pharmacist Pharmacist 08/06/21 06/07/22 Jocelyn [facility] [address] [place] [address] Sethniall, Assigned Sleep 08/01/21 Angel Turcios, Provider [address] [place] [address] Mago Swift, [facility] Lead Farm Consultant Saw Maker - 08/05/21 Clinical documented as of this encounter
--- OUTSIDE RECORDS SUMMARY | 2022-10-21 09:04 | XMS_ITS | Encounter Summary ---
:1980 Author Organization [facility] Address [address] [place] [address] Care Team Providers Name Role Phone Aydee Burton APRN REPAIR SERVICE CLERK Primary Care Provider Aydee Burton APRN REPAIR SERVICE CLERK Unavailable [phone] Louisa Hood STEEL FITTER REPAIR SERVICE CLERK Unavailable [phone] Se Levy NUCLEAR PLANT TECHNICAL ADVISOR Unavailable Unavailable Anny Bernabe Unavailable Unavailable Clari Ruiz [facility] Unavailable [phone] Angel Hannah MD Unavailable Mago Swift SHADOW GRAPH WEIGHT OPERATOR Unavailable Reason for Visit Reason Comments MH Follow Up Mental Health Outpatient (Routine) - Closed Specialty Diagnoses / Procedures Referred By Contact Refer red To Contact Diagnoses Anxiety Depression, unspecified depression type PTSD (post-traumatic stress disorder) Aydee Burton APRN REPAIR SERVICE CLERK [address] [place] [address] Referral ID Status Reason Start Date Expiration Date Visits Requ ested Visits Authorized [id number] Closed 05/17/2021 05/17/2022 1 1 Encounter Details Date Type Department Care Team Description 08/25/2021 [facility] [place] PTSD ( post-traumatic stress disorder) (Primary Dx); Mental Health & ELADIO Recinos CNP [place] (generalized anxiety disorder); Addiction Bern [address] [facility] Severe episode of recurrent major depres sive disorder, without psychotic features (H) Clinic [place], [place] [address] [address] [address] [place] [address] (Work) [phone] Social History Tobacco Use Types Packs/Day Years [...] How often do you attend mosque or jainism services? Never 08/05/2021 Do you [...] at Date Recorded Female 11/09/2021 7:53 PM UX ARCHITECT documented as of this encounter Progress Notes Louisa Hood, ELADIO REPAIR SERVICE CLERK - 08/25/2021 1:00 PM CDT Images from [...] be resent by: Text to cell phone: [phone] Will anyone else be joining your video visit? No Location of [place]: [place] If not at home address below, please ask where they are in case of an emergency situation arises during the appointment. [address] [facility] [address] Telemedicine Visit: The patient's condition can be [...] payment of non-covered services. Mode of Communication: Judys Book platform As the provider I attest to compliance with applicable laws and regulations related to telemedicine. IDENTIFICATION Marta Hill is a 41 year old female who prefers to be called: Marta Referred by: Aydee Burton APRN [facility] Therapist: was with [facility] and now transitioning to [facility] Patient attended the phone/video session alone. Last seen for outpatient psychiatry Return Visit on . FOLLOWING PLAN PUT INTO PLACE: Has not gotten established with a residential psychiatry as of yet. Primary symptoms continue [...] Will continue to follow until appointment with terminal clerk psychiatry INTERIM HISTORY COMMUNICATIONS FROM PATIENT VIA: None RECORDS AVAILABLE FOR REVIEW: EHR records through [facility] and previous psychiatric progress note. 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 NOTES ABOUT [...] Ackerman, during today's team-based visit: MH update: ok. Down days- not want [...] Tx: Scheduled to see [facility] in [place] but they called to reschedule due to [...] No amnesia. Poor historian, states related to kaiawhina and being tired Fund of Knowledge: appropriate [...] 06/11/2021 11:01 AM by Aydee Burton, ELADIO REPAIR SERVICE CLERK None HIGH RISK MEDICATION: Yes quetiapine CONSULTS/REFERRALS: Recommend therapy. Referral placed for [facility]. Call [facility] at [phone] if you do not hear from them soon. Reports she has not gotten a phone call Coordinate care with therapist as needed MEDICAL: None at this time Coordinate care with PCP (Aydee Burton) as needed FOLLOW UP: residential psychiatry appointment tomorrow PSYCHOEDUCATION: Medication side effects and alternatives reviewed. Health promotion activities recommended and reviewed today. All questions addressed. Education and counseling completed regarding risks and benefits of medications and psychotherapy options. Consent provided by patient/guardian Call the psychiatric nurse line with medication questions or concerns at [phone]. PinPayt may be used to communicate with your provider, but this is not intended to be used for emergencies. LAMOTRIGINE: Discussed risk of rash and instructed to stop taking the drug at the first sign of a rash regardless of its type or severity, and contact the nurse line at [phone] FIRST GENERATION ANTIPSYCHOTIC/ SECOND GENERATION ANTIPSYCHOTIC USE: Atypical need for cardiometabolic monitoring with medication- B/P, weight, blood sugar, cholesterol. Need to monitor for abnormal movements taught Medlineplus.gov is information for patients. It is run by the National Library of Medicine and it contains information about all disorders, diseases and all medications. COMMUNITY RESOURCES: CRISIS NUMBERS: Provided in AVS 07/08/2021 National Suicide Prevention Lifeline: 2-776-929-TALK (836-451-2875) Seventymm/resources for a list of additional resources (SOS) [facility] - [phone] Urgent Care Adult Mental Jhdkfr-[phone] mobile unit/ 05/06 crisis line [facility] -[phone] COPE 05/06 [place] Mobile Team -[phone] (adults)/ [phone] (child) Poison Control Center - OR 915 OR go to nearest ER Crisis Text Line for any crisis 05/06 send this- To: [id number] [facility]) [facility] ER [phone] National Suicide Prevention Lifeline: 622.840.8348 (TTY: 546.539.4312). Call anytime for help. (www.suicidepreventionlifeline.org) National [place] on Mental Illness (www.shantell.org): 599.779.4422 or 616-645-4376. Mental Health Association (www.mentalhealth.org): 299.996.8392 or 560-522-4797. [place] Crisis Text Line: Text [place] to 336918 Suicide LifeLine Chat: suicideB2X Care Solutions.org/chat ADMINISTRATIVE BILLIN min spent interviewing patient, reviewing referral documents, obtaining and reviewing outside records, communication with other health specialists, and preparing this report on today's date Video/Phone Start Time: 12:55 pm Video/Phone End Time: 1:11 pm Patient Status: The patient is being referred to residential community psychiatry care and provider will provide bridging until patient is established with new community provider. Signed: Louisa Hood MSN, STEEL FITTER, [facility] Collaborative Care Psychiatry Service (CCPS) Chart documentation done in part with [employer] Voice Recognition software. Although reviewed after completion, some word and grammatical errors may remain. documented in this encounter Miscellaneous Notes Assessment & Plan Note - Louisa Hood APRN CNP - 08/25/2021 1:08 PM CDTAssociated Problem(s): Behavioral Patient is scheduled for long-term psychiatry tomorrow at 10 AM with [facility], . This provider called that office to confirm the appointment. She will be getting a text or aemail link to join the meeting. No medication changes made as she will discuss with new provider. documented in this encounter Plan of Treatment Upcoming Encounters Date Type Specialty Care Team Description 10/21/2022 Office Visit Pulmonology Obdulio Barrera MD [address] [phone] (Wo rk) 10/25/2022 PRE VISIT ENT Charo Burton MD Previsit [address] [place] [address] (Wo rk) 10/25/2022 Office Visit ENT Charo Burton MD [address] [place], [place] [phone] (Wo rk) 10/25/2022 Office Visit ENT Provider, Ent Dysphonia Lead Handler 10/25/2022 Virtual Visit Pain & [place] [address] [place], [place] [address] 10/28/2022 Appointment Speech Therapy Anabel Chew, ELECTRICAL DESIGNER DRAFTER [address] [address] (Wo rk) 11/17/2022 Appointment Speech Therapy Anabel Chew, ELECTRICAL DESIGNER DRAFTER [address] [phone] (Wo rk) 12/01/2022 Office Visit Pain [place] [address] [place], [place] [address] (Wo rk) 12/23/2022 Office Visit Neurology Colby Yeung MD [address] [place] [phone] (Wo rk) documented as of this encounter [...] documented as of this encounter Care Teams Honing Machine Operator Relationship Specialty Start Date End Date Aydee Burton, PCP - General Nurse Practitioner - 05/17/21 STEEL FITTER REPAIR SERVICE CLERK Family [address] [place], [place] [phone] Aydee Burton, Assigned PCP 04/28/21 STEEL FITTER REPAIR SERVICE CLERK [address] [place], [place] [address] Louisa Hood, Assigned Neuroscience 07/11/21 STEEL FITTER REPAIR SERVICE CLERK Provider [address] [place], [place] 9[address] Se Levy, Lead Contract Clerk Automobile 08/05/21 05/12/22 [facility] 08/05/21 09/30/21 Worker Clari Ruiz Pharmacist Pharmacist 08/06/21 06/07/22 [facility] [address] [place], [place] [phone] [place], Assigned Sleep 08/01/21 Angel Turcios, Provider [address] [place] [address] Mago Swift SHADOW GRAPH WEIGHT OPERATOR Lead Contract Clerk Automobile Metal Finish Inspector - 08/05/21 Clinical documented as of this encounter
--- OUTSIDE RECORDS SUMMARY | 2022-10-21 09:04 | XMS_ITS | Encounter Summary ---
:1980 Author Organization [facility] Address [address] [place] [address] Care Team Providers Name Role Phone Aydee Burton TECHNICAL TRAINING MANAGER PRODUCE SPECIALIST Primary Care Provider [phone] Aydee Burton TECHNICAL TRAINING MANAGER PRODUCE SPECIALIST Unavailable [phone] Louisa Hood TECHNICAL TRAINING MANAGER PRODUCE SPECIALIST Unavailable [phone] Se Levy LEATHER PRODUCTION MACHINE OPERATOR Unavailable Unavailable Anny Bernabe Unavailable Unavailable Clari Ruiz [facility] Unavailable [phone] Angel Hannah MD Unavailable Lesly Celaya MD Unavailable Elizabeth Mcintyre [facility] Unavailable Mago Swift ATOMIC PHYSICS PROFESSOR Unavailable Encounter Details Date Type Department Care [...] How often do you attend sabianism or christian services? Never 08/05/2021 Do you [...] at Date Recorded Female 11/09/2021 7:53 PM ASIC DESIGN ENGINEER COVID-19 Exposure Response Date Recorded In the last month, have you been in contact with No / Unsure 09/09/2021 8:00 PM CDT someone who was confirmed or suspected to have Coronavirus / COVID-19? documented as of this encounter Plan of Treatment Upcoming Encounters Date Type Specialty Care Team Description 10/21/2022 Office Visit Pulmonology Obdulio Barrera MD [address] [place] [address] (Wo rk) 10/25/2022 PRE VISIT Charo Carter MD Previsit [address] [place] [address] (Wo rk) 10/25/2022 Office Visit Charo Carter MD [address] [place] [address] (Estefanía rk) 10/25/2022 Office Visit ENT Provider, Jeannette Ent Dysphonia Director Of Application Development 10/25/2022 Virtual Visit Pain & [place]iative [place] [address] [place], [place] [address] 10/28/2022 Appointment Speech Therapy Anabel Chew, INSTALLATION & MAINTENANCE EXECUTIVE [address] [phone] (Wo rk) 11/17/2022 Appointment Speech Therapy Anabel Chew, INSTALLATION & MAINTENANCE EXECUTIVE [address] [phone] (Wo rk) 12/01/2022 Office Visit Pain [place] [address] [place], [place] [address] (Wo rk) 12/23/2022 Office Visit Neurology Colby Yeung MD [address] [place], [place] [address] (Wo rk) documented as of this encounter Visit Diagnoses Not on filedocumented in this encounter Additional Health Concerns Assessment Noted Time PHQ-9 Depression Total Score: 22 06/28/2021 7:03 AM CD T documented as of this encounter Care Teams Undercollar Maker Relationship Specialty Start Date End Date Aydee Burton, PCP - General Nurse Practitioner - 05/17/21 TECHNICAL TRAINING MANAGER PRODUCE SPECIALIST Family [address] [place] [phone] Aydee Burton, Assigned PCP 04/28/21 TECHNICAL TRAINING MANAGER PRODUCE SPECIALIST [address] [place] [address] [phone] Louisa Hood, Assigned Neuroscience 07/11/21 TECHNICAL TRAINING MANAGER PRODUCE SPECIALIST Provider [address] [place] [address] [phone] Se Levy, Lead Optometry Teacher 08/05/21 05/12/22 [facility] 08/05/21 09/30/21 Worker Clari Ruiz Pharmacist Pharmacist 08/06/21 06/07/22 [facility] [address] [place] [address] [place], Assigned Sleep 08/01/21 Angel Turcios, Provider [address] [place] [address] Lesly Celaya MD Assigned Surgical 09/05/[address] [place] [address] Elizabeth Mcintyre CNM Assigned OBGYN 09/05/21 11/06/[id number] [place] [address] Mago Swift ATOMIC PHYSICS PROFESSOR Lead Optometry Teacher Can Coverer - 08/05/21 Clinical documented as of this encounter
--- OUTSIDE RECORDS SUMMARY | 2022-10-21 09:04 | XMS_ITS | Encounter Summary ---
:1980 Author Organization [place] Address [address] [place] [address] Care Team Providers Name Role Phone Aydee Burton STUDENT DEAN BUSINESS RISK CONSULTANT Primary Care Provider Aydee Burton STUDENT DEAN BUSINESS RISK CONSULTANT Unavailable [phone] Louisa Hood STUDENT DEAN BUSINESS RISK CONSULTANT Unavailable [phone] Se Levy CONTRACT ASSOCIATE Unavailable Unavailable Anny Bernabe Unavailable Unavailable Clari Ruiz [facility] Unavailable Angel Hannah MD Unavailable Lesly Celaya MD Unavailable Elizabeth Mcitnyre [facility] Unavailable Mago Swift BEVERAGE HOST Unavailable Reason for Referral Consultation (Routine) - Closed Specialty Diagnoses / Procedures Referred By Contact Refer red To Contact Diagnoses Snoring Angel Hannah MD [address] [place], [place] [address] Referral ID Status Reason Start Date Expiration Date Visits Requ ested Visits Authorized [id number] Closed 09/24/2021 09/24/2022 1 1 S PICKER Reason for Visit Reason Comments Sleep Study Encounter Details Date Type Department Care Team Description 09/24/2021 Virtual Visit [facility] Latasha Hannah (Primary Sleep Center Angel Turcios, Dx) [place] [address] [facility] [address] [place] [address] [place], [place] [phone] (Wo rk) [address] [phone] Social History Tobacco Use Types Packs/Day Years [...] How often do you attend advent or spiritism services? 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/2021 7:53 PM PARTS PICKER COVID-19 Exposure Response Date Recorded In the [...] is considered obese. More than two-thirds of [place] adults are considered overweight or obese. Being [...] to discuss a diet and exercise plan. S PICKER documented in this encounter Progress Notes Angel Hannah MD - 09/24/2021 1:00 PM CST Images from the original note were not included. Marta is a 41 year old who is being evaluated via a billable video visit. Are you in the [facility] for this visit? Yes How would you like to obtain your AVS? MyChart If the video visit is dropped, the invitation should be resent by: Text to cell phone: [phone] Will anyone else be joining your video visit? No Video-Visit Details Type of service: Video Visit Video Start Time: Start: 09/24/2021 01:09 pm Stop: 09/24/2021 01:25 pm Originating Location (pt. Location): Home Distant Location (provider location): [facility] Platform used for Video Visit: [facility] Sleep clinic follow up visit [...] teen years sinus for bloody noses ??? STEREOPTICIAN SURGERY not sure tubal ligation and ablasion [...] Other Topics Concern ??? Parent/sibling w/ CABG, [place] or angioplasty before 65F 55M? No Social [...] with Friends and Family: Never ??? Attends Zoroastrian Services: Never ??? Active Member of Clubs [...] Ht:5' 7; Wt:200 lb; BMI: 31.3 Kg/m2 [place] Total Score 09/21/2021 Total score - [place] 18 General: No apparent distress, appropriately groomed [...] the importance of driving while alert, to bleach boiler puller if drowsy, or nap before getting [...] activities as noted above. Angel Hannah MD [facility] Floor 1, [address] [place] [address] Appointments: [phone] S PICKER Paula Domínguez CMA - 09/24/2021 1:00 PM CST Dental referral and sleep study report have been mailed to patients home address today. Zzoma pillow order, brochure, and fact sheet have also been mailed to patient Oralia Espinal. GREGORIO, SLEEP MEDICINE, 09/27/2021 8:29 AM S PICKER documented in this encounter Plan of Treatment Upcoming Encounters Date Type Specialty Care Team Description 10/21/2022 Office Visit Pulmonology Obdulio Barrera MD [address] [facility] [place] [address] (Wo rk) 10/25/2022 PRE VISIT ENT Charo Burton MD Previsit [address] [place], [place] [address] (Wo rk) 10/25/2022 Office Visit Charo Carter MD [address] [place] [id number] (Wo rk) 10/25/2022 Office Visit ENT Provider, Jeannette Ent Dysphonia Journeyman Sheet Metal Worker 10/25/2022 Virtual Visit Pain & [place]iative [place] [address] [place], [place] [address] 10/28/2022 Appointment Speech Therapy Anabel Chew, POLISHING MACHINE OPERATOR [facility] [address] [place], [place] [address] (Wo rk) 11/17/2022 Appointment Speech Therapy Anabel Chew, POLISHING MACHINE OPERATOR HELPER [place] [id number] [facility] [address] [place], [place] [address] (Wo rk) 12/01/2022 Office Visit Pain [place] [address] [facility] [address] [place], [place] [address] (Wo rk) 12/23/2022 Office Visit Neurology Colby Yeung MD [address] [place] [address] (Wo rk) Scheduled Referrals Name Type Priority Associated Diagnoses Order S chedule SLEEP DENTAL Referral Routine: Next Snoring Expected: REFERRAL available opening 09/24/2021 (Approximate), Expires: 09/24/2022 documented as of this encounter Visit Diagnoses Diagnosis Snoring - Primary Other dyspnea and respiratory abnormalit y documented in this encounter Additional Health Concerns Assessment Noted Time PHQ-9 Depression Total Score: 22 06/28/2021 7:03 AM CD T documented as of this encounter Care Teams Key Carrier Relationship Specialty Start Date End Date Aydee Burton, PCP - General Nurse Practitioner - 05/17/21 STUDENT DEAN BUSINESS RISK CONSULTANT Family [address] [place] [address] Aydee Burton, Assigned PCP 04/28/21 STUDENT DEAN BUSINESS RISK CONSULTANT [address] [place], [place] [address] Louisa Hood, Assigned Neuroscience 07/11/21 STUDENT DEAN BUSINESS RISK CONSULTANT Provider [address] [place] [address] [id number] Se Levy, Lead Physical Sciences Instructor 08/05/21 05/12/22 [facility] Anny Bernabe [facility] 08/05/21 09/30/21 Worker Clari Ruiz Pharmacist Pharmacist 08/06/21 06/07/22 Jocelyn, [facility] [address] [place] [address] [place], Assigned Sleep 08/01/21 Angel Turcios, Provider [address] [place] [address] Lesly Celaya MD Assigned Surgical 09/05/[address] [place] [address] Elizabeth Mcintyre CNM Assigned OBGYN 09/05/21 11/06/[id number] [place] [address] Mago Swift BEVERAGE HOST Lead Physical Sciences Instructor Principal Clerk Typist - 08/05/21 Clinical documented as of this encounter
--- OUTSIDE RECORDS SUMMARY | 2022-10-21 09:04 | XMS_ITS | Encounter Summary ---
:1980 Author Organization [facility] Address [address] [place] [address] Care Team Providers Name Role Phone Aydee Burton [employer]ONS SERGEANT BASKET MACHINE OPERATOR Primary Care Provider [phone] Aydee Burton [employer] SERGEANT BASKET MACHINE OPERATOR Unavailable [phone] Louisa Hood [employer] SERGEANT BASKET MACHINE OPERATOR Unavailable [phone] Se Levy TEACHER'S ASSISTANT Unavailable Unavailable Anny Bernabe Unavailable Unavailable Clari Ruiz [facility] Unavailable [phone] Angel Hannah MD Unavailable Lesly Celaya MD Unavailable Elizabeth Mcintyre CN Unavailable Mago Swift JAVA TECH Unavailable Reason for Visit Reason Comments Sleep Problem (Routine) - Closed Specialty Diagnoses / Procedures Referred By Contact Refer red To Contact Sleep Medicine Diagnoses PSG/information sent through My Chart Sleep Center Procedures PSG DIAGNOSTIC [address] [facility] [address] [place] [address] Phone: Referral ID Status Reason Start Date Expiration Date Visits Requ ested Visits Authorized [id number] Closed 09/09/2021 09/09/2022 1 1 Encounter Details Date Type Department Care Team Description 09/09/2021 Therapy Visit [facility] Sleep disturbance Cierra [address] [facility] [address] [place] [address] Social History Tobacco Use Types Packs/Day [...] at Date Recorded Female 11/09/2021 7:53 PM CANDY DIPPER HAND COVID-19 Exposure Response Date Recorded In [...] Office Visit Pulmonology Obdulio Barrera MD [address] [place] [id number] (Wo rk) 10/25/2022 PRE VISIT ENT Charo Burton MD Previsit [address] [place] [phone] (Wo rk) 10/25/2022 Office Visit ENT Charo Burton MD [address] [place] [phone] (Wo rk) 10/25/2022 Office Visit ENT Provider, Ent Dysphonia Story Reader 10/25/2022 Virtual Visit Pain & [place] [address] [place], [place] [address] 10/28/2022 Appointment Speech Therapy Anabel Chew, THERMOGRAPH OPERATOR [address] [address] (Wo rk) 11/17/2022 Appointment Speech Therapy Anabel Chew, THERMOGRAPH OPERATOR [address] [address] (Wo rk) 12/01/2022 Office Visit Pain & [place] [address] [place], [place] [address] (Wo rk) 12/23/2022 Office Visit Neurology Colby Yeung MD [address] [place] [address] (Wo rk) documented as of this encounter Procedures Procedure Name Priority Date/Time Associated Comments Diagnosis THERMOGRAPH OPERATOR COMPREHENSIVE SEAN 09/09/2021 8:02 PM Sleep disturbance Results for this SLEEP CDT procedure are i n the results section. documented in this encounter Results Comprehensive Sleep Study (09/09/2021 8:02 PM CDT) Analysis Performed At Patho logist Time Signature THERMOGRAPH OPERATOR Comprehensive [facility] Sleep Specimen (Source) Anatomical Collection Method Collection Time Re ceived Time Location / / Volume Laterality 09/09/2021 8:02 PM CDT Narrative [facility] - 09/24/2021 7:09 AM Angel Davila MD ? 09/23/2021 ??2:15 PM SLEEP STUDY INTERPRETATION DIAGNOSTIC POLYSOMNOGRAPHY REPORT Patient: MARTA HAWKINS Date of : 1980 Study Date: 09/09/2021 Referring Provider: - Ordering Provider: - Indications for Polysomnography: The pat ient is a 41-year-old Female who is 5' 7 and weighs 200.0 lbs . Her BMI is 31.4, Douglass sleepiness scale 20 and neck cir cumference [...] or dental appliance through referral to Sleep Frio istry for control of obstructive events that [...] Periodic Limb Movement Disorder G47.61 ?? 09/09/2021 [facility] Héctor dy (200.0 lbs) - [...] weighs 200.0 lbs. Her BMI is 31.4, Douglass sleepiness scale 20 and neck circumference is [...] G47.9 Periodic Limb Movement Disorder G47.61 09/09/2021 [facility] Héctor dy (200.0 lbs) - [...] Diagnoses Diagnosis Sleep disturbance Sleep disturbance, unspecified documented in this encounter Additional Health Concerns Assessment Noted Time PHQ-9 Depression Total Score: 22 06/28/2021 7:03 AM CD T documented as of this encounter Care Teams Rn First Assistant Relationship Specialty Start Date End Date Aydee Burton, PCP - General Nurse Practitioner - 05/17/21 SPECIAL FORCES WEAPONS SERGEANT [facility] Family [address] [place] [address] Aydee Burton, Assigned PCP 04/28/21 [employer] SERGEANT BASKET MACHINE OPERATOR [address] [place], [place] [phone] [place] Louisa Grisel, Assigned Neuroscience 07/11/21 [employer] SERGEANT BASKET MACHINE OPERATOR Provider [address] [place], [place] [phone] Se Levy, Lead Business Development Recruiter 08/05/21 05/12/22 [facility] 08/05/21 09/30/21 Worker Clari Ruiz Pharmacist Pharmacist 08/06/21 06/07/22 [facility] [address] [facility] [address] [place], [place] [phone] [place], Assigned Sleep 08/01/21 Angle Turcios, Provider [address] [place], [place] [phone] Lesly Celaya MD Assigned Surgical 09/05/[address] Provider [place], [place] [phone] Elizabeth Mcintyre CNM Assigned OBGYN 09/05/21 11/06/21 [address] [facility] Provider [place], [place] [phone] Mago Swift, [facility] Lead Business Development Recruiter Taker Off Drying Kiln - 08/05/21 Clinical documented as of this encounter
--- OUTSIDE RECORDS SUMMARY | 2022-10-21 09:05 | XMS_ITS | Encounter Summary ---
:1980 Author Organization [place] Address [address] [place] [address] Care Team Providers Name Role Phone Aydee Burton APRN, CNP Primary Care Provider [phone] Aydee Burton APRN MANAGER REVIEW Unavailable [phone] Encounter Details Date Type Department Care Team [...] How often do you attend gnosticism or anabaptism services? 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/2021 7:53 PM FIELD HUMAN RESOURCES MANAGER COVID-19 Exposure Response Date Recorded In [...] [facility] [address] [place], [place] [phone] (Wo rk) 10/25/2022 PRE VISIT ENT Charo Burton MD Previsit [address] [place], [place] [phone] (Wo rk) 10/25/2022 Office Visit Charo Carter MD [address] [place], [place] [address] (Wo rk) 10/25/2022 Office Visit ENT Provider, Ent Dysphonia Texturing Machine Fixer 10/25/2022 Virtual Visit Pain & [place] [address] [place], [place] [address] 10/28/2022 Appointment Speech Therapy Anabel Chew, WELL LOGGER [address] [address] (Wo rk) 11/17/2022 Appointment Speech Therapy Anabel Chew WELL LOGGER [place] [address] [place] [address] (Wo rk) 12/01/2022 Office Visit Pain [place] [address] [place], [place] [address] (Wo rk) 12/23/2022 Office Visit Neurology Colby Yeung MD [address] [place] [address] (Wo rk) documented as of this encounter Visit Diagnoses Not on filedocumented in this encounter Additional Health Concerns Assessment Noted Time PHQ-9 Depression Total Score: 22 06/28/2021 7:03 AM CD T documented as of this encounter Care Teams Drill Punch Operator Relationship Specialty Start Date End Date Aydee Burton, PCP - General Nurse Practitioner - 05/17/21 CLINICAL LEADER MANAGER REVIEW [address] [phone] Aydee Burton, Assigned PCP 04/28/21 CLINICAL LEADER [address] [phone] documented as of this encounter
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
--- OUTSIDE RECORDS SUMMARY | 2022-10-21 09:05 | XMS_ITS | Encounter Summary ---
:1980 Author Organization [facility] Address [address] [place] [address] Care Team Providers Name Role Phone Aydee Burton APRN, CNP Primary Care Provider [phone] Aydee Burton APRN COSTUMER Unavailable [phone] Encounter Details Date Type Department Care Team Description 07/08/2021 Virtual Visit [facility] Aydee Burton Ch, APRN COSTUMER [address] [place] [address] Depression, major, recurrent, moderate ( H) (Primary Dx); Mental Health & Carolyn Ackerman LICSW PTSD (post-traumatic stress disorder) Addiction [facility] [address] [place] [address] Social History Tobacco Use Types Packs/Day Years [...] How often do you attend latter-day or methodist services? Never 08/05/2021 Do you [...] Recorded Female 11/09/2021 7:53 PM SOCIAL MEDIA COMMUNITY MANAGER COVID-19 Exposure Response Date Recorded In the last month, have you been in contact with No / Unsure 07/07/2021 3:26 PM CDT someone who was confirmed or suspected to have Coronavirus / COVID-19? documented as of this encounter Progress Notes Carolyn Ackerman, DATA TYPIST - 07/08/2021 7:00 AM CDT PATIENT'S NAME: Marta Hill PREFERRED NAME: Marta PREFERRED PRONOUNS: : 1980 ACCT. NUMBER: [id number] DATE OF SERVICE: 07/08/21 START TIME: 700am [...] services. Mode of Communication: Video Conference via Sy[employer] Education As the provider I attest to compliance with applicable laws and regulations related to telemedicine. Identifying Information: Patient is a 41 year old, . The pronoun use throughout this assessment reflects the patient's chosen pronoun. Patient was referred for an assessment by primary care provider. Patient attended the session alone. Chief Complaint: The reason for seeking services at this time is: switched from [facility] to [facility].Seeing psychiatrist at [facility] Depression and anxiety. Some medications helped with that and pain. Had jail neck and back pain. The problem(s) began [...] Current drug use: no Rating Scales: PHQ-9: [facility] Follow-up to PHQ 05/28/2021 06/11/202106/27/2021 PHQ-9 9. Suicide Ideation past 2 weeks [...] to get rid of a hangover? 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 Depressive disorder as teen and on ??? Diabetes (H) not sure pre a few times ??? Hypertension 2002 only during ??? Uncomplicated asthma not sure from being sick Patient has received mental health services in the past: therapy with [facility] in [place]. Psychiatric Hospitalizations: None. Patient denies a history [...] Acculturation: good, Time Orientation: [place] 12hour clock SOCIAL MEDIA COMMUNITY MANAGER, Social Orientation: unable to assess, Verbal / Non-verbal Communication Style: unremarkable, Locus of Control: unable to assess, Spiritual Beliefs: none, Health Beliefs and the endorsement of OR engagement in Culturally Specific Healing Practices: none and Cultural Bias none. Patient identified their preferred language to be Tanzanian. Patient reported they does not need the assistance of an sign language interpreter or other support involved in treatment. Educational/Occupational History: Patient reported highest education level was associate degree / vocational certificate. The patient did not serve in the . 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 Parent/sibling w/ CABG, SC or angioplasty before 65F 55M? No Social [...] Gatherings with Friends and Family: ??? Attends Islam Services: ??? Active Member of Clubs or [...] Attention/concentration: Good Safety Assessment: Current Safety Concerns: [place] Suicide Severity Rating Scale (Lifetime/Recent) [place] Suicide Severity Rating (Lifetime/Recent) 07/08/2021 1. Wish [...] protection services was NA. 2. Resources/Service Plan: Cream Dumper services are not indicated. Modifications to assist communication are not indicated. Additional disability accommodations are not indicated. 3. Collaboration: Collaboration / coordination of treatment will be initiated with the following support professionals: communicated with Louisa Hood, MSN, CRYSTAL CUTTER, COSTUMER, FMHNP- BC, [place] CCPS 4. Referrals: The following referral(s) will be initiated: Outpatient [facility]. Staff Name/Credentials: Carolyn [facility] July 08, 2021 documented in this encounter Plan of Treatment Upcoming Encounters Date Type Specialty Care Team Description 10/21/2022 Office Visit Pulmonology Obdulio Barrera MD [address] [place] [address] [phone] (Estefanía casanova) 10/25/2022 PRE VISIT Charo Carter MD Previsit [address] [place] [phone] (Estefanía casanova) 10/25/2022 Office Visit Charo Carter MD [address] [place] [address] [phone] (Estefanía casanova) 10/25/2022 Office Visit ENT Provider, Jeannette Ent Dysphonia Heavy Equipment Diesel Mechanic 10/25/2022 Virtual Visit Pain & Palliative [place] [address] [place], [place] [address] 10/28/2022 Appointment Speech Therapy Anabel Chew, LIBRARIAN ASSISTANT [address] [address] (Wo rk) 11/17/2022 Appointment Speech Therapy Anabel Chew, LIBRARIAN ASSISTANT [address] [address] (Wo rk) 12/01/2022 Office Visit Pain [place] [address] [place], [place] [address] (Wo rk) 12/23/2022 Office Visit Neurology Colby Yeung MD [address] [place] [address] (Wo rk) documented as of this encounter Visit Diagnoses Diagnosis Depression, major, recurrent, moderate ( H) - Primary Major depressive disorder, recurrent epi sode, moderate PTSD (post-traumatic stress disorder) Posttraumatic stress disorder documented in this encounter Additional Health Concerns Assessment Noted Time PHQ-9 Depression Total Score: 22 06/28/2021 7:03 AM CD T documented as of this encounter Care Teams Personal Financial Planner Relationship Specialty Start Date End Date Aydee Burton, PCP - General Nurse Practitioner - 05/17/21 CRYSTAL CUTTER [address] [phone] Aydee Burton, Assigned PCP 04/28/21 CRYSTAL CUTTER [address] [phone] documented as of this encounter
--- OUTSIDE RECORDS SUMMARY | 2022-10-21 09:05 | XMS_ITS | Encounter Summary ---
:1980 Author Organization [facility] Address [address] [facility] [place] [address] Care Team Providers Name Role Phone Aydee Burton APRN [facility] Primary Care Provider Aydee Burton APRN [facility] Unavailable [phone] Reason for Visit Rehab Therapy Physical Therapy (Routine) - Closed Specialty Diagnoses / Procedures Referred By Contact Refer red To Contact Diagnoses Neck pain Aydee Burton APRN [place] [phone] [address] [phone] Referral ID Status Reason Start Date Expiration Date Visits Requ ested Visits Authorized [id number] Closed 05/21/2021 05/21/2022 1 1 Encounter Details Date Type Department Care Team Description 07/01/2021 [facility] [address] [address] [place] [address] [place] [address] [phone] Social History Tobacco Use Types Packs/Day Years [...] How often do you attend moravian or oriental orthodox services? Never 08/05/2021 Do [...] is being advanced to more complex exercises. CONCRETE STONE FABRICATING SUPERVISOR/ATC plan: N/A Please refer to the daily flowsheet for treatment today, total treatment time and time spent performing 1:1 timed codes. documented in this encounter Plan of Treatment Upcoming Encounters Date Type Specialty Care Team Description 10/21/2022 Office Visit Pulmonology Obdulio Barrera MD [address] [place] [phone] (Wo rk) 10/25/2022 PRE VISIT ENT Charo Burton MD Previsit [address] [place] [address] (Wo rk) 10/25/2022 Office Visit Charo Carter MD [address] [place] [phone] (Wo rk) 10/25/2022 Office Visit ENT Provider, Ent Dysphonia Fast Food Shift Supervisor 10/25/2022 Virtual Visit Pain & Palliative [place] [address] [place], [place] [address] 10/28/2022 Appointment Speech Therapy Anabel Chew SLP [address] [phone] (Wo rk) 11/17/2022 Appointment Speech Therapy Anabel Chew SLP [address] 934015 (Wo rk) 12/01/2022 Office Visit Pain [place] [address] [address] [place] [place] [address] (Wo rk) 12/23/2022 Office Visit Neurology Colby Yeung MD [address] [place] [phone] (Wo rk) documented as of this encounter Procedures Procedure Name Priority Date/Time Associated Diagnosis Comme nts NC MANUAL THERAPY, EA 15 Routine 07/01/2021 8:47 AM CDT Neck p ain MIN NC THERAPEUTIC Routine 07/01/2021 8:47 AM CDT Neck pain EXERCISES. EA 15 MIN NC ULTRASOUND THERAPY, Routine 07/01/2021 8:47 AM CDT Neck naveen n EA 15 MIN documented in this encounter Visit Diagnoses Diagnosis Neck pain Cervicalgia documented in this encounter Additional Health Concerns Assessment Noted Time PHQ-9 Depression Total Score: 22 06/28/2021 7:03 AM CD T documented as of this encounter Care Teams Printing Screen Assembler Relationship Specialty Start Date End Date Aydee Burton, PCP - General Nurse Practitioner - 05/17/21 QUOTATION CHECKER CRIB TENDER [address] [phone] Aydee Burton, Assigned PCP 04/28/21 QUOTATION CHECKER CRIB TENDER [address] [place] [address] [phone] documented as of this encounter
--- OUTSIDE RECORDS SUMMARY | 2022-10-21 09:05 | XMS_ITS | Encounter Summary ---
:1980 Author Organization [place] Address [address] [facility] [place] [address] Care Team Providers Name Role Phone Aydee Burton ASSOCIATE DIRECTOR OF BIOSTATISTICS DENTAL THERAPIST Primary Care Provider Aydee Burton ASSOCIATE DIRECTOR OF BIOSTATISTICS DENTAL THERAPIST Unavailable [phone] Louisa Hood ASSOCIATE DIRECTOR OF BIOSTATISTICS DENTAL THERAPIST Unavailable [phone] Se Levy BITUMEN PLANT OPERATOR Unavailable Unavailable Anny Bernabe Unavailable Unavailable Clari Ruiz [facility] Unavailable [phone] Angel Hannah MD Unavailable Lesly Celaya MD Unavailable Elizabeth Mcintyre Unavailable Tawana Patel MA Unavailable Unavailable Mago Swift FINISHED CLOTH EXAMINER Unavailable Reason for Visit Rehab Therapy Physical Therapy (Routine) - Closed Specialty Diagnoses / Procedures Referred By Contact Refer red To Contact Diagnoses Neck pain Aydee Burton APRN [facility] DENTAL THERAPIST [address] [place] [address] [place] [phone] Referral ID Status Reason Start Date Expiration Date Visits Requ ested Visits Authorized [id number] Closed 05/21/2021 05/21/2022 1 1 Encounter Details Date Type Department Care Team Description 07/07/[address] [address] [place] [address] [address] [place] [address] [place] [address] [phone] Social History Tobacco Use Types Packs/Day Years [...] How often do you attend hindu or jewish services? 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/2021 7:53 PM MEDICAL SCIENCE LIAISON COVID-19 Exposure Response Date Recorded In the last month, have you been in contact with No / Unsure 10/12/2021 10:55 AM MEDICAL SCIENCE LIAISON someone who was confirmed or suspected to [...] and time spent performing 1:1 timed codes. CAL SCIENCE LIAISON documented in this encounter Plan of Treatment Upcoming Encounters Date Type Specialty Care Team Description 10/21/2022 Office Visit Pulmonology Obdulio Barrera MD [address] [phone] (Wo rk) 10/25/2022 PRE VISIT ENT Charo Burton MD Previsit 909 [place] [address] (Wo rk) 10/25/2022 Office Visit ENT Charo Burton MD 9 [place] [address] (Wo rk) 10/25/2022 Office Visit ENT Provider, Ent Dysphonia Solid Glass Rod Dowel Machine Operator 10/25/2022 Virtual Visit Pain & Palliative [place] [address] [place], [place] [address] 10/28/2022 Appointment Speech Therapy Anabel Chew, ETHANOL MAINTENANCE MECHANIC [address] [phone] (Wo rk) 11/17/2022 Appointment Speech Therapy Anabel Chew, ETHANOL MAINTENANCE MECHANIC [address] [phone] (Wo rk) 12/01/2022 Office Visit Pain [place] [address] [place], [place] [address] (Wo rk) 12/23/2022 Office Visit Neurology Colby Yeung MD [address] [place], [place] [address] (Wo rk) documented as of this encounter Procedures Procedure Name Priority Date/Time Associated Diagnosis Comme nts KS MANUAL THERAPY, EA 15 Routine 07/07/2021 4:43 PM CDT Neck p ain MIN KS THERAPEUTIC Routine 07/07/2021 4:43 PM CDT Neck pain EXERCISES. EA 15 MIN KS ULTRASOUND THERAPY, Routine 07/07/2021 4:43 PM CDT Neck naveen n EA 15 MIN documented in this encounter Visit Diagnoses Diagnosis Neck pain Cervicalgia documented in this encounter Additional Health Concerns Assessment Noted Time PHQ-9 Depression Total Score: 22 06/28/2021 7:03 AM CD T documented as of this encounter Care Teams Staff Research Associate Relationship Specialty Start Date End Date Aydee Burton, PCP - General Nurse Practitioner - 05/17/21 ASSOCIATE DIRECTOR OF BIOSTATISTICS DENTAL THERAPIST Family [address] [place], [place] [phone] Aydee Burton, Assigned PCP 04/28/21 ASSOCIATE DIRECTOR OF BIOSTATISTICS DENTAL THERAPIST [address] [place] [address] Louisa Hood, Assigned Neuroscience 07/11/21 ASSOCIATE DIRECTOR OF BIOSTATISTICS DENTAL THERAPIST Provider [address] [place] [address] Se Levy, Lead Asset Availability Leader 08/05/21 05/12/22 [facility] 08/05/21 09/30/21 Worker Clari Ruiz Pharmacist Pharmacist 08/06/21 06/07/22 [facility] [address] [facility] [address] [place], [place] [phone] [place], Assigned Sleep 08/01/21 Angel Turcios, Provider [address] [place], [place] [phone] Lesly Celaya MD Assigned Surgical 09/05/[address] [place] [address] Elizabeth Mcintyre CNM Assigned OBGYN 09/05/21 11/06/21 [address] [facility] [place] [place] [address] Tawana Patel MA [facility] 09/30/21 Worker Mago Swift [facility] Lead Asset Availability Leader Cloth Calender - 08/05/21 Clinical documented as of this encounter
--- OUTSIDE RECORDS SUMMARY | 2022-10-21 09:05 | XMS_ITS | Encounter Summary ---
:1980 Author Organization [place] Address [address] [facility] [place] [address] Care Team Providers Name Role Phone Aydee Burton APRN [facility] Primary Care Provider [phone] Aydee Burton APRN [facility] Unavailable [phone] Reason for Visit Rehab Therapy Physical Therapy (Routine) - Closed Specialty Diagnoses / Procedures Referred By Contact Refer red To Contact Diagnoses Neck pain Aydee Burton APRN [address] [phone] Referral ID Status Reason Start Date Expiration Date Visits Requ ested Visits Authorized [id number] Closed 05/21/2021 05/21/2022 1 1 Encounter Details Date Type Department Care Team Description 06/24/2021 Therapy Visit [facility] Jyotsna Ramos, PT Neck pain Rehabilitation Services [facility] [address] [address] [place], [place] [phone] Social History Tobacco Use Types Packs/Day Years [...] How often do you attend jew or advent services? Never 08/05/2021 Do you [...] at Date Recorded Female 11/09/2021 7:53 PM OLD COIN DEALER COVID-19 Exposure Response Date Recorded In the last month, have you been in contact with No / Unsure 06/24/2021 8:08 AM CDT someone who was confirmed or suspected to have Coronavirus / COVID-19? documented as of this encounter Plan of Treatment Upcoming Encounters Date Type Specialty Care Team Description 10/21/2022 Office Visit Pulmonology Obdulio Barrera MD [address] [address] (Wo rk) 10/25/2022 PRE VISIT ENT Charo Burton MD Previsit [address] [place] [address] (Wo rk) 10/25/2022 Office Visit ENT Charo Burton MD 909 [place], [place] [address] (Wo rk) 10/25/2022 Office Visit ENT Provider, Jeannette Ent Dysphonia Tire Assembler 10/25/2022 Virtual Visit Pain & [place]iative [place] [address] [place], [place] [address] 10/28/2022 Appointment Speech Therapy Anabel Chew, NAVAL MARINE ENGINEER [address] [phone] (Wo rk) 11/17/2022 Appointment Speech Therapy Anabel Chew, NAVAL MARINE ENGINEER [address] [address] (Wo rk) 12/01/2022 Office Visit Pain & [place] [address] [place], [place] [address] (Wo rk) 12/23/2022 Office Visit Neurology Colby Yeung MD [address] [place], [place] [address] (Wo rk) documented as of this encounter Procedures Procedure Name Priority Date/Time Associated Diagnosis Comme nts MS MANUAL THERAPY, EA 15 Routine 06/24/2021 9:08 AM CDT Neck p ain MIN MS THERAPEUTIC Routine 06/24/2021 9:08 AM CDT Neck pain EXERCISES. EA 15 MIN MS ULTRASOUND THERAPY, Routine 06/24/2021 9:08 AM CDT Neck naveen n EA 15 MIN documented in this encounter Visit Diagnoses Diagnosis Neck pain Cervicalgia documented in this encounter Additional Health Concerns Assessment Noted Time PHQ-9 Depression Total Score: 17 06/12/2021 7:02 AM CD T documented as of this encounter Care Teams Allergy Specialist Relationship Specialty Start Date End Date Aydee Burton, PCP - General Nurse Practitioner - 05/17/21 HEAT TREAT FURNACE OPERATOR TOOTH CUTTER CLUTCH Family [address] [facility], [place] [address] Aydee Burton, Assigned PCP 04/28/21 HEAT TREAT FURNACE OPERATOR TOOTH CUTTER CLUTCH [address] [facility], [place] [id number] documented as of this encounter
--- OUTSIDE RECORDS SUMMARY | 2022-10-21 09:05 | XMS_ITS | Encounter Summary ---
:1980 Author Organization [place] Address [address] [place] [address] Care Team Providers Name Role Phone Aydee Burton APRN, CNP Primary Care Provider [phone] Aydee Burton APRN WOMEN'S SOCCER COACH Unavailable [phone] Encounter Details Date Type Department Care Team [...] How often do you attend latter-day or tenriism services? Never 08/05/2021 Do you [...] at Date Recorded Female 11/09/2021 7:53 PM STUDY ASSISTANT COVID-19 Exposure Response Date Recorded In the last month, have you been in contact with No / Unsure 07/01/2021 7:56 AM CDT someone who was confirmed or suspected to have Coronavirus / COVID-19? documented as of this encounter Plan of Treatment Upcoming Encounters Date Type Specialty Care Team Description 10/21/2022 Office Visit Pulmonology Obdulio Barrera MD 420 [facility] 276 [place], [place] [phone] (Wo rk) 10/25/2022 PRE VISIT ENT Charo Burton MD Previsit 909 [place], [place] [phone] (Wo rk) 10/25/2022 Office Visit Charo Carter MD [address] [place], [place] [address] (Wo rk) 10/25/2022 Office Visit ENT Provider, Jeannette Ent Dysphonia Lead Die Molder 10/25/2022 Virtual Visit Pain & [place]iative [place] [address] [place], [place] [address] 10/28/2022 Appointment Speech Therapy Anabel Chew, BIOLOGY ADJUNCT INSTRUCTOR [address] [address] (Wo rk) 11/17/2022 Appointment Speech Therapy Anabel Chew SLP [place] [address] [place] [address] (Wo rk) 12/01/2022 Office Visit Pain & [place] [address] [place], [place] [address] (Wo rk) 12/23/2022 Office Visit Neurology Colby Yeung MD [address] [place] [address] (Wo rk) documented as of this encounter Visit Diagnoses Not on filedocumented in this encounter Additional Health Concerns Assessment Noted Time PHQ-9 Depression Total Score: 22 06/28/2021 7:03 AM CD T documented as of this encounter Care Teams Kitchen Operator Relationship Specialty Start Date End Date Aydee Burton, PCP - General Nurse Practitioner - 05/17/21 CORRECTIONAL FACILITY NURSE WOMEN'S SOCCER COACH [address] [address] Aydee Burton, Assigned PCP 04/28/21 CORRECTIONAL FACILITY NURSE [address] [phone] documented as of this encounter
--- OUTSIDE RECORDS SUMMARY | 2022-10-21 09:05 | XMS_ITS | Encounter Summary ---
:1980 Author Organization [place] Address [address] [place] [address] Care Team Providers Name Role Phone Aydee Burton FLOOR LAYER TILE PROBATION AGENT Primary Care Provider [phone] Aydee Burton FLOOR LAYER TILE PROBATION AGENT Unavailable [phone] Louisa Hood FLOOR LAYER TILE PROBATION AGENT Unavailable [phone] Angel Hannah MD Unavailable Encounter Details Date Type Department Care Team Description 08/03/2021 Virtual Visit [facility] Cristobal Ackerman n, major, recurrent, moderate (H) (Primary Dx); Mental Health & [facility] Leon PTSD (po st-traumatic stress disorder) [facility] [address] [place] [address] Social History Tobacco Use Types Packs/Day Years [...] How often do you attend uatsdin or advent services? Never 08/05/2021 Do you [...] at Date Recorded Female 11/09/2021 7:53 PM COACH MECHANIC COVID-19 Exposure Response Date Recorded In the last month, have you been in contact with No / Unsure 07/07/2021 3:26 PM CDT someone who was confirmed or suspected to have Coronavirus / COVID-19? documented as of this encounter Progress Notes Carolyn Ackerman, DEPARTURE CLERK - 08/03/2021 7:00 AM CDT Collaborative Care [...] services. Mode of Communication: Video Conference via [employer] As the provider I attest to compliance with applicable laws and regulations related to telemedicine. Service Type: Individual Service Location: [facility] / Email (patient reached) Session Start Time: 700am Session End Time: 717am Session Length: 16 - 37 Attendees: Client Visit Activities (Refresh list every visit): [facility] Only Diagnostic Assessment Date: 07/08/2021 [...] to get rid of a hangover? (Eye case reviewer) 0 CAGE-AID SCORE 0 DATA Extended Session [...] date to begin behavior change Motivational Interviewing DC Intervention: Co-Developed Goal: improve sleep, Expressed Empathy/Understanding, [...] time, however patient was encouraged to call [place] [address] should there be a change in any [...] a follow up appointment with the clinic [facility] in conjunction with next [facility] appointment. She was also given information about mental health symptoms and treatment options . CD Recommendations: No indications of CD issues. Carolyn Ackerman [facility] Carrasquillo August 03, 2021 documented in this encounter Plan of Treatment Upcoming Encounters Date Type Specialty Care Team Description 10/21/2022 Office Visit Pulmonology Obdulio Barrera MD [address] [facility] [address] [place], [place] [address] (Wo rk) 10/25/2022 PRE VISIT Charo Carter MD Previsit [address] [place] [phone] (Wo rk) 10/25/2022 Office Visit Charo Carter MD [address] [place] [phone] (Wo rk) 10/25/2022 Office Visit ENT Provider, Jeannette Ent Dysphonia Cashier Gambling 10/25/2022 Virtual Visit Pain & [place]iative [place] [address] [place], [place] [address] 10/28/2022 Appointment Speech Therapy Anabel Chew, CLIENT BUSINESS MANAGER [facility] [address] [facility] [address] [place], [place] [address] (Wo rk) 11/17/2022 Appointment Speech Therapy Anabel Chew, CLIENT BUSINESS MANAGER [facility] [address] [facility] [address] [place], [place] [address] (Wo rk) 12/01/2022 Office Visit Pain & [place] [address] [place], [place] [address] (Wo rk) 12/23/2022 Office Visit Neurology Colby Yeung MD [address] [facility] [place] [address] (Wo rk) documented as of this encounter Visit Diagnoses Diagnosis Depression, major, recurrent, moderate ( H) - Primary Major depressive disorder, recurrent epi sode, moderate PTSD (post-traumatic stress disorder) Posttraumatic stress disorder documented in this encounter Additional Health Concerns Assessment Noted Time PHQ-9 Depression Total Score: 22 06/28/2021 7:03 AM CD T documented as of this encounter Care Teams Hospital Cleaning Specialist Relationship Specialty Start Date End Date Aydee Burton, PCP - General Nurse Practitioner - 05/17/21 FLOOR LAYER TILE PROBATION AGENT Family [address] [place] [phone] Aydee Burton, Assigned PCP 04/28/21 FLOOR LAYER TILE PROBATION AGENT [address] [place] [address] Louisa Hood, Assigned Neuroscience 07/11/21 FLOOR LAYER TILE PROBATION AGENT Provider [address] [place], [place] [phone] [place], Assigned Sleep 08/01/21 Angel Turcios, Provider [address] [place], [place] [address] documented as of this encounter
--- OUTSIDE RECORDS SUMMARY | 2022-10-21 09:05 | XMS_ITS | Encounter Summary ---
:1980 Author Organization [place] Address [address] [facility] [place] [address] Care Team Providers Name Role Phone Aydee Burton APRN FROG FARMER Primary Care Provider [phone] Aydee Burton APRN FROG FARMER Unavailable [phone] Louisa Hood APRN FROG FARMER Unavailable [phone] Se Levy CUSTOM PROTECTION OFFICER Unavailable Unavailable Anny Bernabe Unavailable Unavailable Clari Ruiz [facility] Unavailable [phone] Angel Hannah MD Unavailable Lesly Celaya MD Unavailable Elizabeth Mcintyre CN Unavailable Mago Swift DIRECTOR OF SALES Unavailable Reason for Visit Reason Comments Medication Therapy Management Med Therapy Management (Routine) - Closed Specialty Diagnoses / Procedures Referred By Contact Refer red To Contact Pharmacist Diagnoses Hepatic steatosis PTSD (post-traumatic stress disorder) SHAMEKA (generalized anxiety disorder) Severe episode of recurrent major depressive disorder, without psychotic features (H) Other fatigue Louisa Hood APRN FROG FARMER [address] [facility] [address] [place] [address] Referral ID Status Reason Start Date Expiration Date Visits Requ ested Visits Authorized [id number] Closed 08/03/2021 08/03/2022 1 1 Encounter Details Date Type Department Care Team Description 08/06/2021 Virtual Visit [facility] Ana Hood APRN FROG FARMER [address] [place], [place] [address] MDD (major depressive disorder) (Primary Dx); Mental Health & Clari Ruiz, [facility] [address] [place] [address] SHAMEKA (generalized anxiety disorder); Addiction Services PTSD (post-traumatic stress disorder); [address] [place] [address] Hepatic steat osis; Avenue Hyperlipidemia LDL goal <100 ; [address]; [place], [place] Takes dietar y supplements [phone] Social [...] How often do you attend restorationist or temple services? 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/2021 7:53 PM SUPERVISOR BELT AND LINK ASSEMBLY COVID-19 Exposure Response Date Recorded In the last month, have you been in contact with No / Unsure 09/09/2021 8:00 PM CDT someone who was confirmed or suspected to have Coronavirus / COVID-19? documented as of this encounter Patient Instructions Patient InstructionsClari Ruiz, [facility] - 08/06/2021 9:00 AM CDT Recommendations from [...] may call the MTM scheduling line at [phone] or toll-free at . My Clinical Pharmacist's contact information: Please feel free to contact me with any questions or concerns you have. Clari Ruiz, PharmD, BCPP Medication Therapy Management Pharmacist [facility] documented in this encounter Progress Notes Clari Ruiz Jocelyn, JORDAN - 08/06/2021 9:00 AM CDT Medication Therapy Management (MTM) Encounter ASSESSMENT: Medication Adherence/Access: No issues identified MDD, SHAMEKA, PTSD: Symptoms are suboptimally controlled and patient's [...] vitamin D level within normal limits. PLAN: Finishing Area Supervisor to connect with Louisa Hood about a [...] established care with Louisa Hood APRN via [facility] collaborative care psychiatry in June 2021. She plans to transition to a community psychiatrist at [facility] - has an appointment scheduled on . She was previously seen at [facility]. Marta reports she has been on Cymbalta [...] has a sleep study scheduled 09/09/2021 through [facility]. She is unsure how helpful her current [...] has fatty liver; diagnosis originally came from [facility] in March/April 2021. She is not sure [...] was told she has fatty liver in March/April and cristianoe cut down on her use [...] referring provider. The patient was sent via Covocative a summary of these recommendations. Clari Ruiz, PharmD, BCPP Medication Therapy Management Pharmacist [facility] Telemedicine Visit Details Type of service: Telephone visit Start Time: 9:00 AM End Time: 10:00 AM Originating Location (patient location): Home Distant Location (provider location): [facility] MENTAL HEALTH & ADDICTION SERVICES Medication Therapy Recommendations No medication therapy recommendations to display documented in this encounter Plan of Treatment Upcoming Encounters Date Type Specialty Care Team Description 10/21/2022 Office Visit Pulmonology Obdulio Barrera MD [address] [place] [phone] (Estefanía casanova) 10/25/2022 PRE VISIT Charo Carter MD Previsit [address] [place] [phone] (Estefanía casanova) 10/25/2022 Office Visit Charo Carter MD [address] [place] [phone] (Estefanía casanova) 10/25/2022 Office Visit ENT Provider, Ent Dysphonia University Teacher 10/25/2022 Virtual Visit Pain & [place]iative [place] [address] [place], [place] [address] 10/28/2022 Appointment Speech Therapy Anabel Chew, WATER POLLUTION SCIENTIST [address] [address] (Wo rk) 11/17/2022 Appointment Speech Therapy Anabel Chew, WATER POLLUTION SCIENTIST [address] [address] (Wo rk) 12/01/2022 Office Visit [place] & [place] [address] [place], [place] [address] (Wo rk) 12/23/2022 Office Visit Neurology Colby Yeung MD [address] [place] [address] (Wo rk) documented as of this encounter Visit Diagnoses Diagnosis MDD (major depressive disorder) - Primar y Major depressive disorder, single episod e, unspecified SHAMEKA (generalized anxiety disorder) Generalized anxiety disorder PTSD (post-traumatic stress disorder) Posttraumatic stress disorder Hepatic steatosis Other chronic nonalcoholic liver disease Hyperlipidemia LDL goal <100 Other and unspecified hyperlipidemia Pain Generalized pain Takes dietary supplements documented in this encounter Additional Health Concerns Assessment Noted Time PHQ-9 Depression Total Score: 22 06/28/2021 7:03 AM CD T documented as of this encounter Care Teams Big Data Developer Relationship Specialty Start Date End Date Aydee Burton, PCP - General Nurse Practitioner - 05/17/21 FLORAL MERCHANDISER FROG FARMER Family [address] [place], [place] [address] Aydee Burton, Assigned PCP 04/28/21 FLORAL MERCHANDISER FROG FARMER [address] [place], [place] [address] Louisa Hood, Assigned Neuroscience 07/11/21 FLORAL MERCHANDISER FROG FARMER Provider [address] [place], [place] [phone] Se Levy, Lead Factory Maintenance Manager 08/05/21 05/12/22 [facility] 08/05/21 09/30/21 Worker Clari Ruiz Pharmacist Pharmacist 08/06/21 06/07/22 [facility] [address] [place] [address] [place], Assigned Sleep 08/01/21 Angel Turcios, Provider [address] [place] [address] Lesly Celaya MD Assigned Surgical 09/05/[address] [place] [address] Elizabeth Mcintyre CNM Assigned OBGYN 09/05/21 11/06/[id number] [place] [address] Mago Swift, [facility] Lead Factory Maintenance Manager Sewing Teacher - 08/05/21 Clinical documented as of this encounter
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
--- OUTSIDE RECORDS SUMMARY | 2022-10-21 09:05 | XMS_ITS | Encounter Summary ---
:1980 Author Organization [facility] Address [address] [place] [address] Care Team Providers Name Role Phone Aydee Burton APRN, CNP Primary Care Provider [phone] Aydee Burton APRN GUSSET MAKER Unavailable [phone] Encounter Details Date Type Department Care Team [...] How often do you attend denominational or sabianist services? Never 08/05/2021 Do you [...] at Date Recorded Female 11/09/2021 7:53 PM BALLAST CLEANING OPERATOR COVID-19 Exposure Response Date Recorded In the last month, have you been in contact with No / Unsure 06/30/2021 11:09 AM CDT someone who was confirmed or suspected to have Coronavirus / COVID-19? documented as of this encounter Plan of Treatment Upcoming Encounters Date Type Specialty Care Team Description 10/21/2022 Office Visit Pulmonology Obdulio Barrera MD [address] [facility] [address] [place], [place] [phone] (Wo rk) 10/25/2022 PRE VISIT ENT Charo Burton MD Previsit [address] [place], [place] [phone] (Wo rk) 10/25/2022 Office Visit Charo Carter MD [address] [place], [place] [phone] (Wo rk) 10/25/2022 Office Visit ENT Provider, Ent Dysphonia Leather Goods Sales Representative 10/25/2022 Virtual Visit Pain & [place] [address] [place], [place] [address] 10/28/2022 Appointment Speech Therapy Anabel Chew, VP SECURITY [address] [address] (Wo rk) 11/17/2022 Appointment Speech Therapy Anabel Chew SLP [place] [address] [place] [address] (Wo rk) 12/01/2022 Office Visit Pain & [place] [address] [place] [place], [place] [address] (Wo rk) 12/23/2022 Office Visit Neurology Colby Yeung MD [address] [place] [address] (Wo rk) documented as of this encounter Visit Diagnoses Not on filedocumented in this encounter Additional Health Concerns Assessment Noted Time PHQ-9 Depression Total Score: 22 06/28/2021 7:03 AM CD T documented as of this encounter Care Teams Neurology Hospitalist Relationship Specialty Start Date End Date Aydee Burton, PCP - General Nurse Practitioner - 05/17/21 HIRED HAND GUSSET MAKER [address] [phone] Aydee Burton, Assigned PCP 04/28/[address] [phone] documented as of this encounter
--- OUTSIDE RECORDS SUMMARY | 2022-10-21 09:05 | XMS_ITS | Encounter Summary ---
:1980 Author Organization [facility] Address [address] [place] [address] Care Team Providers Name Role Phone Aydee Burton APRN, CNP Primary Care Provider [phone] Aydee Burton APRN ANALYTICS SENIOR MANAGER Unavailable [phone] Reason for Referral Mental Health Outpatient (Routine) - Closed Specialty Diagnoses / Procedures Referred By Contact Refer red To Contact Diagnoses Major depression in complete remission (H) Carolyn Ackerman LICSW Referral ID Status Reason Start Date Expiration Date Visits Requ ested Visits Authorized [id number] Closed 07/08/2021 07/08/2022 1 1 Encounter Details Date Type Department Care Team Description 07/08/2021 [facility] complete remission (H) Addiction [facility] (Primary Dx) [address] [place] [address] Social History Tobacco Use Types Packs/Day Years [...] How often do you attend scientologist or evangelical services? Never 08/05/2021 Do you [...] at Date Recorded Female 11/09/2021 7:53 PM BOOTMAKER COVID-19 Exposure Response Date Recorded In the last month, have you been in contact with No / Unsure 07/07/2021 3:26 PM CDT someone who was confirmed or suspected to have Coronavirus / COVID-19? documented as of this encounter Plan of Treatment Upcoming Encounters Date Type Specialty Care Team Description 10/21/2022 Office Visit Pulmonology Obdulio Barrera MD [address] [place] [address] (Wo rk) 10/25/2022 PRE VISIT Charo Carter MD Previsit [address] [place] [address] (Wo rk) 10/25/2022 Office Visit Charo Carter MD [address] [place] [address] (Wo rk) 10/25/2022 Office Visit ENT Provider, Jeannette Ent Dysphonia Business Planner 10/25/2022 Virtual Visit Pain & [place] [address] [place], [place] [address] 10/28/2022 Appointment Speech Therapy Anabel Chew, NEEDLE LOOM WEAVER [address] [phone] (Wo rk) 11/17/2022 Appointment Speech Therapy Anabel Chew, NEEDLE LOOM WEAVER [address] [address] (Wo rk) 12/01/2022 Office Visit Pain & [place] [address] [place], [place] [address] (Wo rk) 12/23/2022 Office Visit Neurology Colby Yeung MD [address] [place], [place] [phone] (Wo rk) Scheduled Referrals Name Type Priority Associated Diagnoses Order S [facility] REFERRAL - Referral Routine Major depression in Expected: 07/08/2021 Adult; Outpatient complete remission (H) (Approximate), Treatment; Expires: 2021 Individual/Couples/Famil y/Group Therapy/Health Psychology; [facility] ; We will contact you to schedule the appointment or please call with any questions documented as of this encounter Visit Diagnoses Diagnosis Major depression in complete remission ( H) - Primary Major depressive disorder, single episod e in full remission documented in this encounter Additional Health Concerns Assessment Noted Time PHQ-9 Depression Total Score: 22 06/28/2021 7:03 AM CD T documented as of this encounter Care Teams Scrum Product Owner Relationship Specialty Start Date End Date Aydee Burton, PCP - General Nurse Practitioner - 05/17/21 PIPE THREADER ANALYTICS SENIOR MANAGER Family [address] [place] [address] [place] [address] Aydee Burton, Assigned PCP 04/28/21 PIPE THREADER ANALYTICS SENIOR MANAGER [address] [facility] [place], [place] [address] documented as of this encounter
--- OUTSIDE RECORDS SUMMARY | 2022-10-21 09:05 | XMS_ITS | Encounter Summary ---
:1980 Author Organization [facility] Address [address] [place] [address] Care Team Providers Name Role Phone Aydee Burton APRN, CNP Primary Care Provider Aydee Burton APRN AUTOMOTIVE SOFTWARE ENGINEER Unavailable [phone] Encounter Details Date Type Department Care Team [...] How often do you attend baptist or evangelical services? Never 08/05/2021 Do you [...] at Date Recorded Female 11/09/2021 7:53 PM INFANT LEAD TEACHER COVID-19 Exposure Response Date Recorded In the last month, have you been in contact with No / Unsure 06/24/2021 8:08 AM CDT someone who was confirmed or suspected to have Coronavirus / COVID-19? documented as of this encounter Plan of Treatment Upcoming Encounters Date Type Specialty Care Team Description 10/21/2022 Office Visit Pulmonology Obdulio Barrera MD [address] [facility] [address] [place], [place] [phone] (Wo rk) 10/25/2022 PRE VISIT ENT Charo Burton MD Previsit [address] [place], [place] [phone] (Wo rk) 10/25/2022 Office Visit Charo Carter MD [address] [place], [place] [phone] (Wo rk) 10/25/2022 Office Visit ENT Provider, Ent Dysphonia Tilesetter 10/25/2022 Virtual Visit Pain & [place] [address] [place], [place] [address] 10/28/2022 Appointment Speech Therapy Anabel Chew, PHOTOGRAPHIC DEVELOPER AND PRINTER [address] [address] (Wo rk) 11/17/2022 Appointment Speech Therapy Anabel Chew PHOTOGRAPHIC DEVELOPER AND PRINTER [place] [address] [place] [address] (Wo rk) 12/01/2022 Office Visit Pain & [place] [address] [address] [place], [place] [address] (Wo rk) 12/23/2022 Office Visit Neurology Colby Yeung MD [address] [place] [address] (Wo rk) documented as of this encounter Visit Diagnoses Not on filedocumented in this encounter Additional Health Concerns Assessment Noted Time PHQ-9 Depression Total Score: 17 06/12/2021 7:02 AM CD T documented as of this encounter Care Teams Warehouse Operations Manager Relationship Specialty Start Date End Date Aydee Burton, PCP - General Nurse Practitioner - 05/17/21 PRIVATE INVESTIGATOR AUTOMOTIVE SOFTWARE ENGINEER [address] [phone] Aydee Burton, Assigned PCP 04/28/[address] [phone] documented as of this encounter
--- OUTSIDE RECORDS SUMMARY | 2022-10-21 09:05 | XMS_ITS | Encounter Summary ---
:1980 Author Organization [facility] Address [address] [place] [address] Care Team Providers Name Role Phone Aydee Burton MANAGED CARE NURSE FIRESTOPPER INSTALLER Primary Care Provider Aydee Burton MANAGED CARE NURSE FIRESTOPPER INSTALLER Unavailable [phone] Louisa Hood MANAGED CARE NURSE FIRESTOPPER INSTALLER Unavailable [phone] Angel Hannah MD Unavailable Reason for Visit Consultation (Routine) - Closed Specialty Diagnoses / Procedures Referred By Contact Refer red To Contact Sleep Medicine Diagnoses Gasping for breath Aydee Burton, Sleep Clinic MANAGED CARE NURSE FIRESTOPPER INSTALLER [address] [phone] Fax: Referral ID Status Reason Start Date Expiration Date Visits Requ ested Visits Authorized [id number] Closed 06/13/2021 06/13/2022 1 1 Encounter Details Date Type Department Care Team Description 07/28/2021 Virtual Visit [facility] Aydee Burton Ch, APRN FIRESTOPPER INSTALLER [address] [place], [place] [phone] Sleep disturbance (Primary Dx); Sleep Center Angel Hannah MD [address] [place], [place] [address] Gasping for breath [place] [address] [place] [phone] Social History Tobacco Use Types Packs/Day [...] at Date Recorded Female 11/09/2021 7:53 PM SUBMERSIBLE PILOT COVID-19 Exposure Response Date Recorded In the [...] video for the device you are using: -supervisor operations/drop off device- https://www.Molecule Synth.com/watch?v=yGGFBdELGhk -Disposable device sent out require phone/computer application- https://www.Molecule Synth.com/watch?v=BCce_vbiwxE Frequently asked questions: 1. What is Obstructive [...] mild sleep apnea. Belt type body positioner http://Victor.[employer] Electronic reminder http://nightshifttherapy.com/ http://www.Var[employer]ity Development [employer].com.au/ Oral Appliance What is oral appliance therapy? [...] to visit the Web site of the [place] [employer] -Oral devices [...] devices are custom-made by a dental device arboriculture instructor after a mold is made of the [...] medicine Specific training is available through the [place] [employer] for dentists interested in working in the field of sleep. To find a dentist who is educated in the field of sleep and the use of oral appliances, near you, visit the Web site of the [place] [employer]. References 1. Jessica et al. Objectively measured vs self-reported compliance during oral appliance therapyfor sleep-disordered breathing. Chest 2013; 144(5): 1446-0402. 2. Elvi et al. Objective measurement of compliance during oral appliance therapy for sleep-disordered breathing. Thorax 2013; 68(1): 91-96. 3. Bailey, et al. Mandibular advancement devices in 620 men and women with LEONORA and snoring: tolerability and predictors of treatment success. Chest 2004; 125: 7797-1107. 4. Martín et al. Oral appliances for snoring and LEONORA: a review. Sleep 2006; 29: 244-262. 5. Jocelyne et al. Oral appliance treatment for LEONORA: an update. J Clin Sleep Med 2014; 10(2): 215-227. 6. Rakesh et al. Predictors of OSAH treatment outcome. J [place] Res 2007; 86: 8929-9840. Weight Loss: Weight loss is a long-term [...] is considered obese. More than two-thirds of [place] adults are considered overweight or obese. Being [...] employer, local community center, or hamzah club. Surgery: Surgery for [...] adults: a systematic review and meta-analysis. SLEEP 2010;33(10):3047-4863. Kevin Cuenca. Hypopharyngeal surgery in obstructive sleep apnea: an evidence-based medicine review. Arch Otolaryngol Head Neck Surg. 2005;132(2):206-13. 3. Chris YH1, Megan Y, Rory ROSSANA. The efficacy of anatomically based multilevel surgery for obstructive sleep apnea. Otolaryngol Head Neck Surg. 2002;129(4):327-35. 4. Kevin Cuenca, Karla Kim. Hypopharyngeal Surgery in Obstructive Sleep Apnea: An Evidence-Based Medicine Review. Arch Otolaryngol Head Neck Surg. 2005;132(2):206-13. 5. Strollo PJ et al. Upper-Airway Stimulation for Obstructive [...] you can purchase through online resources including [employer], soon after awakening for 30 to 60 [...] should be resent by: Text to cell phone:[phone] Will anyone else be joining your video visit? No If patient encounters technical issues they should call [phone] :[id number]} Video-Visit Details ?? Type of service:?? Video Visit Video start: 07/28/2021 01:15 pm Video Stop: 07/28/2021 02:00 pm Originating Location (pt. Location):??Home ?? Distant Location (provider location): [facility] Sleep [facility] ?? Platform used for Video Visit: [facility] Sleep Consultation Note Date [...] still unrefreshed after naps. SLEEP SCALES: Patient's [place] Sleepiness score 20/24 Insomnia severity index:13 Restless [...] out dreams. 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 Parent/sibling w/ CABG, ID or angioplasty before 65F 55M? No Social [...] Gatherings with Friends and Family: ??? Attends Christianity Services: ??? Active Member of Clubs or [...] or weight on file to calculate BMI. [place] Total Score 07/28/2021 Total score - [place] 20 General: No apparent distress, appropriately groomed [...] requesting the accommodation has been generated in [facility]. Recommended to follow regular sleep schedule [...] the importance of driving while alert, to lug breaker and wire puller if drowsy, or nap before getting into the vehicle if sleepy. Plan is to communicate results of sleep study in 1 week. CC: yAdee Burton The above note was dictated using [...] activities as noted above. Angel Hannah MD [address] [address] Dept: [phone] documented in this encounter Plan of Treatment Upcoming Encounters Date Type Specialty Care Team Description 10/21/2022 Office Visit Pulmonology Obdulio Barrera MD [address] [place] [phone] (Wo rk) 10/25/2022 PRE VISIT ENT Charo Burton MD Previsit [address] [place] [address] (Wo rk) 10/25/2022 Office Visit ENT Charo Burton MD [address] [place] [address] [phone] (Wo rk) 10/25/2022 Office Visit ENT Provider, Ent Dysphonia System Specialist 10/25/2022 Virtual Visit Pain & [place] [address] [place], [place] [address] 10/28/2022 Appointment Speech Therapy Anabel Chew, CLAIMS DIRECTOR [address] [phone] (Wo rk) 11/17/2022 Appointment Speech Therapy Anabel Chew, CLAIMS DIRECTOR [address] 670235 (Wo rk) 12/01/2022 Office Visit Pain & [place] [address] [place], [place] [address] (Wo rk) 12/23/2022 Office Visit Neurology Colby Yeung MD [address] [place] [address] (Wo rk) documented as of this encounter Results Comprehensive Sleep Study (09/09/2021 8:02 PM CDT) Analysis Performed At Patho logist Time Signature CLAIMS DIRECTOR Comprehensive [facility] Sleep Specimen (Source) Anatomical Collection Method Collection Time Re ceived Time Location / / Volume Laterality 09/09/2021 8:02 PM CDT Narrative [facility] - 09/24/2021 7:09 AM SUBMERSIBLE PILOT Angel Hannah MD ? 09/23/2021 ??2:15 PM SLEEP STUDY INTERPRETATION DIAGNOSTIC POLYSOMNOGRAPHY REPORT Patient: MARTA HAWKINS Date of : 1980 Study Date: 09/09/2021 Referring Provider: - Ordering Provider: - Indications for Polysomnography: The pat ient is a 41-year-old Female who is 5' 7 and weighs 200.0 lbs . Her BMI is 31.4, [place] sleepiness scale 20 and neck cir cumference [...] or dental appliance through referral to Sleep [facility] [place] [facility] for control of obstructive events that [...] Periodic Limb Movement Disorder G47.61 ?? 09/09/2021 [facility] Héctor dy (200.0 lbs) - AHI 4.8, RDI 5.0, Supine AHI 7.6, REM AHI 4.1, Lo w O2 83.1%, Time Spent ?88% 0.1 minutes / Time Spent ?89% 0.1 m inutes. Electronically Signed By: (Suni smith MD), 09/23/21 ?? Procedure Note PusalaAngel mccormack MD - 09/09/2021 11:59 PM CDT Images from the original note were not i ncluded. SLEEP STUDY INTERPRETATION DIAGNOSTIC POLYSOMNOGRAPHY REPORT Patient: MARTA HAWKINS Date of : 1980 Study Date: 09/09/2021 Referring Provider: - Ordering Provider: - Indications for Polysomnography: The pat ienat is a 41-year-old Female who is 5' 7 and weighs 200.0 lbs. Her BMI is 31.4, [place] sleepiness scale 20 and neck circumference is [...] G47.9 Periodic Limb Movement Disorder G47.61 09/09/2021 [facility] Héctor dy (200.0 lbs) - AHI 4.8, RDI 5.0, Supine AHI 7.6, REM AHI 4.1, Low O2 83.1%, Time Spent ?88% 0.1 minutes / Time Spent ?89% 0.1 minutes. Electronically Signed By: (Suni smith MD), 09/23/21 Angel Hannah MD PROCEDURES Performing Organization Address City/State/ZIP Code Phon e Number [facility] PFT documented in this encounter Visit Diagnoses Diagnosis Sleep disturbance - Primary Sleep disturbance, unspecified Gasping for breath Sleep disturbance Sleep disturbance, unspecified documented in this encounter Additional Health Concerns Assessment Noted Time PHQ-9 Depression Total Score: 22 06/28/2021 7:03 AM CD T documented as of this encounter Care Teams Surgical Services Manager Relationship Specialty Start Date End Date Aydee Burton, PCP - General Nurse Practitioner - 05/17/21 MANAGED CARE NURSE FIRESTOPPER INSTALLER Family [address] [place] [address] Aydee Burton, Assigned PCP 04/28/21 MANAGED CARE NURSE FIRESTOPPER INSTALLER [address] [place], [place] [address] Louisa Hood, Assigned Neuroscience 07/11/21 MANAGED CARE NURSE FIRESTOPPER INSTALLER Provider [address] [place], [place] [address] [place], Assigned Sleep 08/01/21 Angel Turcios, Provider [address] [place], [place] [address] documented as of this encounter
--- OUTSIDE RECORDS SUMMARY | 2022-10-21 09:06 | XMS_ITS | Encounter Summary ---
:1980 Author Organization [facility] Address [address] [place] [address] Care Team Providers Name Role Phone Aydee Burton APRN, CNP Primary Care Provider [phone] Aydee Burton APRN AERIAL INSTALLER Unavailable [phone] Reason for Visit Reason Comments UTI With Low back pain Encounter Details Date Type Department Care Team Description 05/28/2021 Office Visit [facility] Brigid Noriega MD Dysuria (Primary Dx); Clinic [place] [address] [place] [address] Urinary tract infection without hematuri a, site unspecified [address] [place], [place] [phone] Social History Tobacco Use Types Packs/Day [...] How often do you attend baptism or adventist services? 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/2021 7:53 PM PRODUCTION ENGINEER COVID-19 Exposure Response Date Recorded In [...] hematuria, site unspecified - patient [facility] Started on ciprofloxacin Feeling better [...] pcp for depression . [facility]ie[facility] is a 41 year old who [...] Ibuprofen. Pt Had UA and Culture done [facility], we do not have the results. Was [...] Visit Pulmonology Obdulio Barrera MD [address] [address] (Wo rk) 10/25/2022 PRE VISIT Charo Carter MD Previsit [address] [place] [address] (Wo rk) 10/25/2022 Office Visit Charo Carter MD [address] [place] [address] [phone] (Estefanía casanova) 10/25/2022 Office Visit ENT Provider, Jeannette Ent Dysphonia Proteomics Scientist 10/25/2022 Virtual Visit Pain & [place] [address] [place], [place] [address] 10/28/2022 Appointment Speech Therapy Anabel Chew, RAG CUTTING MACHINE TENDER [address] [place], [place] [address] (Wo rk) 11/17/2022 Appointment Speech Therapy Anabel Chew, CELINE [address] [phone] (Wo rk) 12/01/2022 Office Visit Pain & [place] [address] [place], [place] [address] (Wo rk) 12/23/2022 Office Visit Neurology Colby Yeung MD [address] [place], [place] [address] (Wo rk) documented as of this encounter [...] - lab collect (05/28/2021 3:13 PM CDT) athologist Signature Culture No Growth NIKOLAS 05/29/2021 [...] Code Phon e Number [facility] [place] [phone] Diag. Lab [address] [facility], Room D297 [facility] Infectious [place], [place] [phone] Diseases Diagnostic [id number], [facility] Lab (IDDL) [address] [facility], Room D297 (ABNORMAL) Urine Microscopic Exam (05/28/2021 2:10 PM CDT) [facility] Method Time Signature Bacteria Urine Moderate (A) None Seen NIKOLAS 05/28/2021 [facility] RY /HPF 2:36 PM CDT RBC Urine 0-2 0-2 /HPF NIKOLAS 05/28/2021 [facility] /HPF 2:36 PM CDT WBC Urine 0-5 0-5 /HPF NIKOLAS 05/28/2021 [facility] /HPF 2:36 PM CDT Squamous Few (A) None Seen NIKOLAS 05/28/2021 LABORATORY Epithelials /LPF 2:36 PM CDT Urine Specimen Anatomical Collection Method Collection Time Receive d Time (Source) Location / / Volume Laterality Urine MID-STREAM URINE Non-blood 05/28/2021 2:10 PM 05/28 2:10 SPECIMEN / Unknown Collection / CDT PM CDT Unknown Brigid Noriega MD LAB - URINE ORDERABLES Performing Organization Address City/State/ZIP Code Phon [place] [address] Lab [address] [facility] Lab (no room number, 1st floor of clinic) [place] [address], [facility] [address] [facility] Lab (no room number, 1st floor of clinic) (ABNORMAL) UA with Microscopic - lab collect (05/28/2021 2:10 PM CDT) [facility] Method Time Signature Color Urine Yellow Colorless, 05/28/2021 LABORATORY Straw, 2:35 PM CDT Light Yellow, Yellow Appearance Urine Clear Clear 05/28/2021 LV LABORATOR Y 2:35 PM CDT Glucose Urine Negative Negative 05/28/2021 LABORATORY mg/dL 2:35 PM CDT Bilirubin Urine Negative Negative 05/28/2021 [facility] 2:35 PM CDT Ketones Urine Negative Negative 05/28/2021 LABORATORY mg/dL 2:35 PM CDT Specific [place] <=1.005 1.003 - 05/28/2021 [facility] LABORATOR Y Urine 1.035 2:35 PM CDT Blood Urine Trace (A) Negative 05/28/2021 [facility] 2:35 PM CDT pH Urine 5.0 5.0 - 7.0 05/28/2021 [facility] 2:35 PM CDT Protein Albumin 30 (A) Negative 05/28/2021 [facility] Urine mg/dL 2:35 PM CDT Urobilinogen 0.2 0.2, 1.0 05/28/2021 [facility] Urine E.U./dL 2:35 PM CDT Nitrite Urine Positive Negative 05/28/2021 LABORATORY (A) 2:35 PM CDT Leukocyte Negative Negative 05/28/2021 [facility] Esterase Urine 2:35 PM CDT Specimen Anatomical Collection Method Collection Time Receive d Time (Source) Location / / Volume Laterality Urine MID-STREAM URINE Non-blood 05/28/2021 2:10 PM 05/28 2:10 SPECIMEN / Unknown Collection / CDT PM CDT Unknown Brigid Noriega MD LAB - URINE ORDERABLES Performing Organization Address City/State/ZIP Code Phon [place] Number [place] [address] Lab [address] [facility] Lab (no room number, 1st floor of clinic) [place] [address], [phone] [facility] [address] [facility] Lab (no room number, 1st floor of clinic) documented in this encounter Visit Diagnoses Diagnosis Dysuria - Primary Urinary tract infection without hematuri a, site unspecified documented in this encounter Additional Health Concerns Assessment Noted Time PHQ-9 Depression Total Score: 16 05/28/2021 2:58 PM CD T documented as of this encounter Care Teams Wafer Production Lead Worker Relationship Specialty Start Date End Date Aydee Burton, PCP - General Nurse Practitioner - 05/17/21 MANAGEMENT AND BUDGET ANALYST AERIAL INSTALLER Family [address] [place] [address] Aydee Burton, Assigned PCP 04/28/21 MANAGEMENT AND BUDGET ANALYST AERIAL INSTALLER [address] [place] [address] documented as of this encounter
--- OUTSIDE RECORDS SUMMARY | 2022-10-21 09:06 | XMS_ITS | Encounter Summary ---
:1980 Author Organization [facility] Address [address] [place] [address] Care Team Providers Name Role Phone Aydee Burton APRN, CNP Primary Care Provider [phone] Aydee Burton APRN AUTOMOTIVE STARTER REPAIRER Unavailable [phone] Encounter Details Date Type Department Care Team [...] How often do you attend hindu or jain services? Never 08/05/2021 Do you [...] at Date Recorded Female 11/09/2021 7:53 PM RETAIL DELIVERY DRIVER COVID-19 Exposure Response Date Recorded In the last month, have you been in contact with No / Unsure 06/03/2021 8:33 AM CDT someone who was confirmed or suspected to have Coronavirus / COVID-19? documented as of this encounter Plan of Treatment Upcoming Encounters Date Type Specialty Care Team Description 10/21/2022 Office Visit Pulmonology Obdulio Barrera MD 420 [facility] [address] [place], [place] [phone] (Wo rk) 10/25/2022 PRE VISIT ENT Charo Burton MD Previsit [address] [place], [place] [phone] (Wo rk) 10/25/2022 Office Visit Charo Carter MD [address] [place], [place] [phone] (Wo rk) 10/25/2022 Office Visit ENT Provider, Ent Dysphonia Social Media Executive 10/25/2022 Virtual Visit Pain & [place] [address] [place], [place] [address] 10/28/2022 Appointment Speech Therapy Anabel Chew, PSYCHIATRIC TECH [address] [address] (Wo rk) 11/17/2022 Appointment Speech Therapy Anabel Chew SLP [place] [address] [place] [address] (Wo rk) 12/01/2022 Office Visit Pain [place] [address] [place], [place] [address] (Wo rk) 12/23/2022 Office Visit Neurology Colby Yeung MD [address] [place] [address] (Wo rk) documented as of this encounter Visit Diagnoses Not on filedocumented in this encounter Additional Health Concerns Assessment Noted Time PHQ-9 Depression Total Score: 16 05/28/2021 2:58 PM CD T documented as of this encounter Care Teams Waiter/Waitress Take Out Relationship Specialty Start Date End Date Aydee Burton, PCP - General Nurse Practitioner - 05/17/21 TELECOMMUNICATIONS PROFESSIONAL AUTOMOTIVE STARTER REPAIRER [address] [address] Aydee Burton, Assigned PCP 04/28/21 TELECOMMUNICATIONS PROFESSIONAL [address] [phone] documented as of this encounter
--- OUTSIDE RECORDS SUMMARY | 2022-10-21 09:06 | XMS_ITS | Encounter Summary ---
:1980 Author Organization [facility] Address [address] [place] [address] Care Team Providers Name Role Phone Aydee Burton APRN, CNP Primary Care Provider [phone] Aydee Burton APRN AMUSEMENT CENTRE MANAGER Unavailable [phone] Reason for Referral Diagnostic Imaging Ultrasound (Routine) - Closed Specialty Diagnoses / Procedures Referred By Contact Refer red To Contact Diagnoses Elevated LFTs Aydee Burton APRN Procedures US Abdomen Limited AMUSEMENT CENTRE MANAGER [address] [place] [address] Referral ID Status Reason Start Date Expiration Date Visits Requ ested Visits Authorized [id number] Closed 05/21/2021 05/21/2022 1 1 Reason for Visit Diagnostic Imaging Ultrasound (Routine) - Closed Specialty Diagnoses / Procedures Referred By Contact Refer red To Contact Diagnoses Elevated LFTs Aydee Burton APRN Procedures US Abdomen Limited AMUSEMENT CENTRE MANAGER [address] [place] [address] Referral ID Status Reason Start Date Expiration Date Visits Requ ested Visits Authorized [id number] Closed 05/21/2021 05/21/2022 1 1 Encounter Details Date Type Department Care Team Description 06/04/2021 Hospital Encounter [facility] VanessaFARHAN howellN [facility] Center Imaging [address] [facility] [address] [facility] [address] [place] [address] [place], [place] [phone] (Wo rk) [address] [phone] Social History Tobacco Use Types Packs/Day Years [...] How often do you attend shinto or sabianism services? Never 08/05/2021 Do you [...] at Date Recorded Female 11/09/2021 7:53 PM COLD ROLLING COORDINATOR COVID-19 Exposure Response Date Recorded In [...] Office Visit Pulmonology Obdulio Barrera MD [address] [address] (Wo rk) 10/25/2022 PRE VISIT Charo Carter MD Previsit [address] [place] [address] (Wo rk) 10/25/2022 Office Visit Charo Carter MD [address] [place] [address] (Wo rk) 10/25/2022 Office Visit ENT Provider, Jeannette Ent Dysphonia List Of [employer] Job Ideas 10/25/2022 Virtual Visit Pain & [place] [address] [place], [place] [address] 10/28/2022 Appointment Speech Therapy Anabel Chew, GROCERY STORE CLERK [address] [address] (Wo rk) 11/17/2022 Appointment Speech Therapy Anabel Chew, GROCERY STORE CLERK [address] [address] (Wo rk) 12/01/2022 Office Visit Pain & [place] [address] [place], [place] [address] (Wo rk) 12/23/2022 Office Visit Neurology Colby Yeung MD [address] [place], [place] [address] (Wo rk) documented as of this encounter [...] or sonographic evidence of acute cholecystitis. TIA HANEY MD Narrative 06/04/2021 9:35 AM CDT US [...] ??Not specifically assess ed. Procedure Note Tia Haney MD - 06/04/2021Forma tting of this note [...] or sonographic evidence of acute cholecystitis. TIA HANEY MD Aydee Burton APRN AMUSEMENT CENTRE MANAGER IMG US ORDERABLES documented in this encounter Visit Diagnoses Diagnosis Elevated LFTs Other abnormal blood chemistry documented in this encounter Additional Health Concerns Assessment Noted Time PHQ-9 Depression Total Score: 16 05/28/2021 2:58 PM CD T documented as of this encounter Care Teams Drop Hammer Setter Up Relationship Specialty Start Date End Date Aydee Burton, PCP - General Nurse Practitioner - 05/17/21 MILL HOUSE SUPERVISOR AMUSEMENT CENTRE MANAGER Family [address] [place] [phone] Aydee Burton, Assigned PCP 04/28/21 MILL HOUSE SUPERVISOR [facility] [address] [place], [place] [address] documented as of this encounter
--- OUTSIDE RECORDS SUMMARY | 2022-10-21 09:06 | XMS_ITS | Encounter Summary ---
:1980 Author Organization [facility] Address [address] [place] [address] Care Team Providers Name Role Phone Aydee Burton APRN, CNP Primary Care Provider [phone] Aydee Burton APRN INSPECTOR PLUG SEAM Unavailable [phone] Encounter Details Date Type Department Care Team [...] How often do you attend yarsanism or anglican services? Never 08/05/2021 Do you [...] at Date Recorded Female 11/09/2021 7:53 PM BLACK ASH BURNER OPERATOR COVID-19 Exposure Response Date Recorded In the last month, have you been in contact with No / Unsure 06/15/2021 8:06 AM CDT someone who was confirmed or suspected to have Coronavirus / COVID-19? documented as of this encounter Plan of Treatment Upcoming Encounters Date Type Specialty Care Team Description 10/21/2022 Office Visit Pulmonology Obdulio Barrera MD 420 [facility] 276 [place], [place] [phone] (Wo rk) 10/25/2022 PRE VISIT ENT Charo Burton MD Previsit 909 [place], [place] [phone] (Wo rk) 10/25/2022 Office Visit Charo Carter MD [address]09 [place], [place] [address]05 (Wo rk) 10/25/2022 Office Visit ENT Provider, Jeannette Ent Dysphonia Laser Machine Operator 10/25/2022 Virtual Visit Pain & Palliative [place] [address] [place], [place] [address] 10/28/2022 Appointment Speech Therapy Anabel Chew, PROMOTIONS REPRESENTATIVE [address] [address] (Wo rk) 11/17/2022 Appointment Speech Therapy Anabel Chew SLP [place] [address] [place] [address] (Wo rk) 12/01/2022 Office Visit Pain & [place] [address] [place], [place] [address] (Wo rk) 12/23/2022 Office Visit Neurology Colby Yeung MD [address] [place] [address] (Wo rk) documented as of this encounter Visit Diagnoses Not on filedocumented in this encounter Additional Health Concerns Assessment Noted Time PHQ-9 Depression Total Score: 17 06/12/2021 7:02 AM CD T documented as of this encounter Care Teams Liability Claims Representative Relationship Specialty Start Date End Date Aydee Burton, PCP - General Nurse Practitioner - 05/17/21 GEAR HOBBER INSPECTOR PLUG SEAM [address] [id number] Aydee Burton, Assigned PCP 04/28/[address] [phone] documented as of this encounter
--- OUTSIDE RECORDS SUMMARY | 2022-10-21 09:06 | XMS_ITS | Encounter Summary ---
:1980 Author Organization [facility] Address [address] [place] [address] Care Team Providers Name Role Phone Aydee Burton APRN, CNP Primary Care Provider Aydee Burton APRN PERMANENT WAVER Unavailable [phone] Reason for Visit Diagnostic Imaging XR (Routine) - Closed Specialty Diagnoses / Procedures Referred By Contact Refer red To Contact Diagnoses Night sweats Aydee Burton APRN Procedures XR Chest 2 Views [facility] [address] [place] [address] Referral ID Status Reason Start Date Expiration Date Visits Requ ested Visits Authorized [id number] Closed 06/11/2021 06/11/2022 1 1 Encounter Details Date Type Department Care Team Description 06/11/2021 Ancillary Procedure [facility] Aydee Burton ht sweats Clinic [place] ELADIO Mendez PERMANENT WAVER [address] [facility] [address] [place] [address] [address] [place], [place] [phone] Social History Tobacco Use Types Packs/Day Years [...] often do you attend roman catholic or anabaptist services? Never 08/05/2021 Do you [...] at Date Recorded Female 11/09/2021 7:53 PM DEPUTY SHERIFF CUSTODY COVID-19 Exposure Response Date Recorded In the last month, have you been in contact with No / Unsure 06/11/2021 10:20 AM CDT someone who was confirmed or suspected to have Coronavirus / COVID-19? documented as of this encounter Miscellaneous Notes Result Encounter Note - Aydee Burton, DIGITAL MEDIA SALES CONSULTANT PERMANENT WAVER - 06/11/2021 11:35 AM CDT Dear Marta, Here is a summary of your recent test results: Great news your chest xray was normal For additional lab test information, labtestsonline.[email or web address] is an excellent reference. In addition, here is a list of due or overdue Health Maintenance reminders: Please call us at [phone] (or use MyChart) to address the above recommendations if needed. [facility] It was an honor and a privilege to participate in your care. Healthy regards, Aydee Burton, TARA Terri [facility] Spenser Tierney documented in this encounter Plan of Treatment Upcoming Encounters Date Type Specialty Care Team Description 10/21/2022 Office Visit Pulmonology Obdulio Barrera MD [address] [phone] (Wo rk) 10/25/2022 PRE VISIT ENT Charo Burton MD Previsit [address] [place] [phone] (Wo rk) 10/25/2022 Office Visit ENT Charo Burton MD [address] [place] [phone] (Wo rk) 10/25/2022 Office Visit ENT Provider, Ent Dysphonia Call Out Operator 10/25/2022 Virtual Visit Pain & Palliative [place] [address] [place], [place] [address] 10/28/2022 Appointment Speech Therapy Anabel Chew, MANAGER HEMATOLOGY [address] [address] (Wo rk) 11/17/2022 Appointment Speech Therapy Anabel Chew, MANAGER HEMATOLOGY [address] [address] (Wo rk) 12/01/2022 Office Visit Pain & [place] [address] [place], [place] [address] (Wo rk) 12/23/2022 Office Visit Neurology Colby Yeung MD [address] [place], [place] [address] (Wo rk) documented as of this encounter [...] chest abnormality. JAH CLINE MD SYSTEM ID: [id number] Narrative 06/11/2021 12:52 PM CDT CHEST TWO [...] chest abnormality. JAH CLINE MD SYSTEM ID: [id number] Aydee Burton APRN PERMANENT WAVER IMG DIAGNOSTIC IMAGING O RDERABLES documented in this encounter Visit Diagnoses Diagnosis Night sweats Generalized hyperhidrosis documented in this encounter Additional Health Concerns Assessment Noted Time PHQ-9 Depression Total Score: 17 06/12/2021 7:02 AM CD T documented as of this encounter Care Teams Supervisor Filter Assembly Relationship Specialty Start Date End Date Aydee Burton, PCP - General Nurse Practitioner - 05/17/21 DIGITAL MEDIA SALES CONSULTANT PERMANENT WAVER Family [address] [place] [phone] Aydee Burton, Assigned PCP 04/28/21 DIGITAL MEDIA SALES CONSULTANT PERMANENT WAVER [address] [place] [address] documented as of this encounter
--- OUTSIDE RECORDS SUMMARY | 2022-10-21 09:06 | XMS_ITS | Encounter Summary ---
:1980 Author Organization [facility] Address [address] [place] [address] Care Team Providers Name Role Phone Aydee Burton APRN, CNP Primary Care Provider [phone] Aydee Burton APRN ACID EXTRACTOR Unavailable [phone] Encounter Details Date Type Department Care Team [...] How often do you attend sikh or mandaen services? Never 08/05/2021 Do you [...] at Date Recorded Female 11/09/2021 7:53 PM FRICTION PAINT MACHINE TENDER COVID-19 Exposure Response Date Recorded In the last month, have you been in contact with No / Unsure 06/17/2021 8:39 AM CDT someone who was confirmed or suspected to have Coronavirus / COVID-19? documented as of this encounter Plan of Treatment Upcoming Encounters Date Type Specialty Care Team Description 10/21/2022 Office Visit Pulmonology Obduilo Barrera MD 420 [facility] 276 [place], [place] [phone] (Wo rk) 10/25/2022 PRE VISIT ENT Charo Burton MD Previsit [address]09 [place], [place] [phone] (Wo rk) 10/25/2022 Office Visit Charo Carter MD [address] [place], [place] [address] (Wo rk) 10/25/2022 Office Visit ENT Provider, Ent Dysphonia Bricklayer Tender 10/25/2022 Virtual Visit Pain & Palliative [place] [address] [place], [place] [address] 10/28/2022 Appointment Speech Therapy Anabel Chew, MID LEVEL JAVA DEVELOPER [address] [address] (Wo rk) 11/17/2022 Appointment Speech Therapy Anabel Chew SLP [place] [address] [place] [address] (Wo rk) 12/01/2022 Office Visit Pain & [place] [address] [place], [place] [address] (Wo rk) 12/23/2022 Office Visit Neurology Colby Yeung MD [address] [place] [address] (Wo rk) documented as of this encounter Visit Diagnoses Not on filedocumented in this encounter Additional Health Concerns Assessment Noted Time PHQ-9 Depression Total Score: 17 06/12/2021 7:02 AM CD T documented as of this encounter Care Teams Pastry Mixer Relationship Specialty Start Date End Date Aydee Burton, PCP - General Nurse Practitioner - 05/17/21 POULTRY HATCHERY MANAGER ACID EXTRACTOR [address] [phone] Aydee Burton, Assigned PCP 04/28/21 POULTRY HATCHERY MANAGER [address] [phone] documented as of this encounter
--- OUTSIDE RECORDS SUMMARY | 2022-10-21 09:06 | XMS_ITS | Encounter Summary ---
:1980 Author Organization [facility] Address [address] [place] [address] Care Team Providers Name Role Phone Aydee Burton APRN, CNP Primary Care Provider [phone] Aydee Burton APRN DENTURE LABORATORY TECHNICIAN Unavailable [phone] Encounter Details Date Type Department Care Team [...] How often do you attend moravian or presybeterian services? Never 08/05/2021 Do you [...] at Date Recorded Female 11/09/2021 7:53 PM DITCH TENDER COVID-19 Exposure Response Date Recorded In the last month, have you been in contact with No / Unsure 06/10/2021 8:39 AM CDT someone who was confirmed or suspected to have Coronavirus / COVID-19? documented as of this encounter Plan of Treatment Upcoming Encounters Date Type Specialty Care Team Description 10/21/2022 Office Visit Pulmonology Obdulio Barrera MD 420 [facility] 276 [place], [place] [phone] (Wo rk) 10/25/2022 PRE VISIT ENT Charo Burton MD Previsit [address]09 [place], [place] [phone] (Wo rk) 10/25/2022 Office Visit Charo Carter MD [address] [place], [place] [address] (Wo rk) 10/25/2022 Office Visit ENT Provider, Ent Dysphonia Asset Management Coordinator 10/25/2022 Virtual Visit Pain & Palliative [place] [address] [place], [place] [address] 10/28/2022 Appointment Speech Therapy Anabel Chew, APPAREL PATTERNMAKER [address] [address] (Wo rk) 11/17/2022 Appointment Speech Therapy Anabel Chew SLP [place] [address] [place] [address] (Wo rk) 12/01/2022 Office Visit Pain & [place] [address] [place], [place] [address] (Wo rk) 12/23/2022 Office Visit Neurology Colby Yeung MD [address] [place] [id number] (Wo rk) documented as of this encounter Visit Diagnoses Not on filedocumented in this encounter Additional Health Concerns Assessment Noted Time PHQ-9 Depression Total Score: 16 05/28/2021 2:58 PM CD T documented as of this encounter Care Teams Feed Mill Lab Technician Relationship Specialty Start Date End Date Aydee Burton, PCP - General Nurse Practitioner - 05/17/21 ANHYDROUS AMMONIA PRODUCTION SUPERVISOR DENTURE LABORATORY TECHNICIAN [address] [phone] Aydee Burton, Assigned PCP 04/28/21 ANHYDROUS AMMONIA PRODUCTION SUPERVISOR [address] [phone] documented as of this encounter
--- OUTSIDE RECORDS SUMMARY | 2022-10-21 09:06 | XMS_ITS | Encounter Summary ---
:1980 Author Organization [facility] Address [address] [place] [address] Care Team Providers Name Role Phone Aydee Burton APRN, CNP Primary Care Provider [phone] Aydee Burton APRN INSTRUMENT PERSON Unavailable [phone] Reason for Visit Reason Onset Date Comments Medication Problem 06/11/2021 duloxetine Encounter Details Date Type Department Care Team Description [facility], Medication Problem Clinic [place] ELADIO KOO (duloxetine) [address] [place] [address] [place], [place] [phone] (Wo rk) [address] [phone] Social History Tobacco Use Types Packs/Day Years [...] Date Recorded Female 11/09/2021 7:53 PM SUPERVISOR FLOOR ASSEMBLY COVID-19 Exposure Response Date Recorded In [...] script if ok. See original message from [facility] with verification. Court Alford RN Telephone Encounter - Aydee Burton APRN CNP - 06/13/2021 10:40 AM CDT Images from the original note were not included. 2 scripts sent one for 60 mg one for 30 mg. TARA Spivey- Telephone Encounter - Mayda Stephens RN - 06/11/2021 2:35 PM CDT Received call from Jacqueline @ [facility] regarding Duloxetine 30mg prescription. States insurance will not cover 3 tab daily. Jacqueline is suggesting e-scribing 2 prescriptions: One vey55dn and one for 60mg. Last office visit 06-11-21 Please advise, thanks. Addendum Note - Court Mcmullen RN - 06/11/2021 2:34 PM CDT Addended by: COURT MCMULLEN on: 06/14/2021 01:24 PM Modules accepted: Orders documented in this encounter Plan of Treatment Upcoming Encounters Date Type Specialty Care Team Description 10/21/2022 Office Visit Pulmonology Obdulio Barrera MD [address] [place] [address] (Wo edilberto) 10/25/2022 PRE VISIT ENT Charo Burton MD Previsit [address] [place] [address] (Wo rk) 10/25/2022 Office Visit ENT Charo Burton MD 909 [place], [place] [address] (Wo rk) 10/25/2022 Office Visit ENT Provider, Jeannette Ent Dysphonia Test Specialist 10/25/2022 Virtual Visit Pain & [place]iative [place] [address] [place], [place] [address] 10/28/2022 Appointment Speech Therapy Anabel Chew, CANE SPLICER [address] [phone] (Wo rk) 11/17/2022 Appointment Speech Therapy Anabel Chew, CANE SPLICER [address] [address]88715 (Wo rk) 12/01/2022 Office Visit [place] [address] [place], [place] [address] (Wo rk) 12/23/2022 Office Visit Neurology Colby Yeung MD [address] [place], [place] [address] (Wo rk) documented as of this encounter Visit Diagnoses Diagnosis Bilateral occipital neuralgia Other syndromes affecting cervical regio n documented in this encounter Additional Health Concerns Assessment Noted Time PHQ-9 Depression Total Score: 17 06/12/2021 7:02 AM CD T documented as of this encounter Care Teams Resin Painter Relationship Specialty Start Date End Date Aydee Burton, PCP - General Nurse Practitioner - 05/17/21 TAR POT WORKER [address] [phone] Aydee Burton, Assigned PCP 04/28/21 TAR POT WORKER INSTRUMENT PERSON 4151 [place] [address] documented as of this encounter
--- OUTSIDE RECORDS SUMMARY | 2022-10-21 09:06 | XMS_ITS | Encounter Summary ---
:1980 Author Organization [facility] Address [address] [place] [address] Care Team Providers Name Role Phone Aydee Burton APRN, CNP Primary Care Provider [phone] Aydee Burton APRN, CNP Unavailable [phone] Reason for Referral Consultation (Routine) - Closed Specialty Diagnoses / Procedures Referred By Contact Refer red To Contact oil and gas exploration technician Diagnoses Pelvic pain in female Rv Family Practice Ri Manager Convention [address] [facility] [address] [facility] [place] [address] [place] [address] [place] [address] Phone: Fax: Referral ID Status Reason Start Date Expiration Date Visits Requ ested Visits Authorized [id number] Closed 06/16/2021 06/16/2022 1 1 Encounter Details Date Type Department Care Team Description 06/16/[address] [facility] Jasson Neal, Pelv ic pain in female Clinic Prior Tierney RN (Primary Dx) 4[address] [place] [address] Social History Tobacco Use Types [...] How often do you attend shinto or bahai services? Never 08/05/2021 Do you [...] Barrera MD 420 [facility] 276 [place] [address] (Wo rk) 10/25/2022 PRE VISIT ENT Charo Burton MD Previsit [address] [place] [phone] (Wo rk) 10/25/2022 Office Visit ENT Charo Burton MD 909 [place], [place] [address]35 (Wo rk) 10/25/2022 Office Visit ENT Provider, Ent Dysphonia Dehydrogenation Supervisor 10/25/2022 Virtual Visit Pain & [place]iative [place] [address] [place], [place] [address] 10/28/2022 Appointment Speech Therapy Anabel Chew, PSYCHOLOGICAL AIDE [address] [phone] (Wo rk) 11/17/2022 Appointment Speech Therapy Anabel Chew, PSYCHOLOGICAL AIDE [address] [address]8565 (Wo rk) 12/01/2022 Office Visit [place] [address] [place], [place] [address] (Wo rk) 12/23/2022 Office Visit Neurology Colby Yeung MD [address] [place], [place] [address] (Wo rk) Scheduled Referrals Name Type Priority Associated Diagnoses Order S chedule Manager Convention Referral Referral Routine Pelvic pain in female Exp ected: 06/16/2021 (Approximate), Expires: 06/16/2022 documented as of this encounter Visit Diagnoses Diagnosis Pelvic pain in female - Primary Unspecified symptom associated with fema le genital organs documented in this encounter Additional Health Concerns Assessment Noted Time PHQ-9 Depression Total Score: 17 06/12/2021 7:02 AM CD T documented as of this encounter Care Teams Induction Coordination Power Engineer Relationship Specialty Start Date End Date Aydee Burton, PCP - General Nurse Practitioner - 05/17/21 CELLOPHANE TESTER CORNER BLOCK CUTTER [facility] 6[address] [place], [place] [address] Aydee Burton, Assigned PCP 04/28/21 CELLOPHANE TESTER CORNER BLOCK CUTTER [address] [place], [place] [phone] documented as of this encounter
--- OUTSIDE RECORDS SUMMARY | 2022-10-21 09:06 | XMS_ITS | Encounter Summary ---
:1980 Author Organization [place] Address [address] [place] [address] Care Team Providers Name Role Phone Aydee Burton APRN, CNP Primary Care Provider [phone] Aydee Burton APRN CHEMIST WATER PURIFICATION Unavailable [phone] Encounter Details Date Type Department Care Team [...] How often do you attend protestant or denominational services? 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/2021 7:53 PM OFFICE SERVICES MANAGER COVID-19 Exposure Response Date Recorded In the last month, have you been in contact with No / Unsure 05/28/2021 12:01 PM CDT someone who was confirmed or suspected to have Coronavirus / COVID-19? documented as of this encounter Plan of Treatment Upcoming Encounters Date Type Specialty Care Team Description 10/21/2022 Office Visit Pulmonology Obdulio Barrera MD 420 [facility] 276 [place], [place] [phone] (Wo rk) 10/25/2022 PRE VISIT ENT Charo Burton MD Previsit [address]09 [place], [place] [phone] (Wo rk) 10/25/2022 Office Visit Charo Carter MD [address]09 [place], [place] [address]295 (Wo rk) 10/25/2022 Office Visit ENT Provider, Ent Dysphonia Vp Analytics 10/25/2022 Virtual Visit Pain & Palliative [place] [address] [place], [place] [address] 10/28/2022 Appointment Speech Therapy Anabel Chew, TRAINING DEVELOPER [address] [address] (Wo rk) 11/17/2022 Appointment Speech Therapy Anabel Chew TRAINING DEVELOPER [place] [address] [place] [address] (Wo rk) 12/01/2022 Office Visit Pain & [place] [address] [address] [place], [place] [address] (Wo rk) 12/23/2022 Office Visit Neurology Colby Yeung MD [address] [place] [address] (Wo rk) documented as of this encounter Visit Diagnoses Not on filedocumented in this encounter Additional Health Concerns Assessment Noted Time PHQ-9 Depression Total Score: 16 05/28/2021 2:58 PM CD T documented as of this encounter Care Teams Engineering Designer Relationship Specialty Start Date End Date Aydee Burton, PCP - General Nurse Practitioner - 05/17/21 ELECTRIC SHOVEL OPERATOR CHEMIST WATER PURIFICATION [address] [phone] Aydee Burton, Assigned PCP 04/28/21 ELECTRIC SHOVEL OPERATOR [address] [phone] documented as of this encounter
--- OUTSIDE RECORDS SUMMARY | 2022-10-21 09:06 | XMS_ITS | Encounter Summary ---
:1980 Author Organization [place] Address [address] [facility] [place] [address] Care Team Providers Name Role Phone Aydee Burton APRN ANTHROPOLOGY PROFESSOR Primary Care Provider Aydee Burton APRN [facility] Unavailable [phone] Reason for Visit Rehab Therapy Physical Therapy (Routine) - Closed Specialty Diagnoses / Procedures Referred By Contact Refer red To Contact Diagnoses Neck pain Aydee Burton APRN [place] [phone] [address] [phone] Referral ID Status Reason Start Date Expiration Date Visits Requ ested Visits Authorized [id number] Closed 05/21/2021 05/21/2022 1 1 Encounter Details Date Type Department Care Team Description 06/17/2021 Therapy Visit [facility] Aydee Burton Ch, APRN [address] [phone] Neck pain Rehabilitation Services Davy Ramos, PT [facility] [address] [place] [address] [place] [phone] [place] [phone] Social History Tobacco Use Types [...] How often do you attend restoration or hoahaoism services? 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/2021 7:53 PM FLOOR COVERING CONTRACTOR COVID-19 Exposure Response Date Recorded In the last month, have you been in contact with No / Unsure 06/17/2021 8:39 AM CDT someone who was confirmed or suspected to have Coronavirus / COVID-19? documented as of this encounter Plan of Treatment Upcoming Encounters Date Type Specialty Care Team Description 10/21/2022 Office Visit Pulmonology Obdulio Barrera MD [address] [place] [address] (Wo rk) 10/25/2022 PRE VISIT ENT Charo Burton MD Previsit [address] [place] [phone] (Wo rk) 10/25/2022 Office Visit ENT Charo Burton MD [address] [place] [phone] (Wo rk) 10/25/2022 Office Visit ENT Provider, Ent Dysphonia Receivables Specialist 10/25/2022 Virtual Visit Pain & Palliative [place] [address] [place], [place] [address] 10/28/2022 Appointment Speech Therapy Anabel Chew, DIRECTOR OF CATERING [address] [address]3735 (Wo rk) 11/17/2022 Appointment Speech Therapy Anabel Chew, DIRECTOR OF CATERING [address] [phone] (Wo rk) 12/01/2022 Office Visit [facility] [place] [address] [place], [place] [address] (Wo rk) 12/23/2022 Office Visit Neurology Colby Yeung MD [address] [place] [address]23[address] (Wo rk) documented as of this encounter Procedures Procedure Name Priority Date/Time Associated Diagnosis Comme nts IA MANUAL THERAPY, EA 15 Routine 06/17/2021 12:31 PM Neck pain MIN CDT IA THERAPEUTIC Routine 06/17/2021 12:31 PM Neck pain EXERCISES. EA 15 MIN CDT IA ULTRASOUND THERAPY, Routine 06/17/2021 12:31 PM Neck pain EA 15 MIN CDT documented in this encounter Visit Diagnoses Diagnosis Neck pain Cervicalgia documented in this encounter Additional Health Concerns Assessment Noted Time PHQ-9 Depression Total Score: 17 06/12/2021 7:02 AM CD T documented as of this encounter Care Teams Television Antenna Installer Relationship Specialty Start Date End Date Aydee Burton, PCP - General Nurse Practitioner - 05/17/21 TRANSPORTATION ENGINEER [address] [phone] Aydee Burotn, Assigned PCP 04/28/21 TRANSPORTATION ENGINEER [address] [address] documented as of this encounter
--- OUTSIDE RECORDS SUMMARY | 2022-10-21 09:06 | XMS_ITS | Encounter Summary ---
:1980 Author Organization [facility] Address [address] [place] [address] Care Team Providers Name Role Phone Aydee Burton APRN, CNP Primary Care Provider Aydee Burton APRN FOOD ORDER EXPEDITER Unavailable [phone] Encounter Details Date Type Department Care Team [...] How often do you attend anabaptism or restorationism services? 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/2021 7:53 PM KEYBOARD SPECIALIST COVID-19 Exposure Response Date Recorded In the last month, have you been in contact with No / Unsure 06/11/2021 10:20 AM CDT someone who was confirmed or suspected to have Coronavirus / COVID-19? documented as of this encounter Plan of Treatment Upcoming Encounters Date Type Specialty Care Team Description 10/21/2022 Office Visit Pulmonology Obdulio Barrera MD [address] [facility] [address] [place], [place] [phone] (Wo rk) 10/25/2022 PRE VISIT ENT Charo Burton MD Previsit [address] [place], [place] [phone] (Wo rk) 10/25/2022 Office Visit Charo Carter MD [address] [place] [address] (Wo rk) 10/25/2022 Office Visit ENT Provider, Jeannette Ent Dysphonia Portal Developer 10/25/2022 Virtual Visit Pain & [place] [address] [place], [place] [address] 10/28/2022 Appointment Speech Therapy Anabel Chew, EDITOR INDEX [address] [address] (Wo rk) 11/17/2022 Appointment Speech Therapy Anabel Chew SLP [place] [address] [place] [address] (Wo rk) 12/01/2022 Office Visit Pain & [place] [address] [address] [place], [place] [address] (Wo rk) 12/23/2022 Office Visit Neurology Colby Yeung MD [address] [place] [address] (Wo rk) documented as of this encounter Visit Diagnoses Not on filedocumented in this encounter Additional Health Concerns Assessment Noted Time PHQ-9 Depression Total Score: 17 06/12/2021 7:02 AM CD T documented as of this encounter Care Teams Kiss Mixer Relationship Specialty Start Date End Date Aydee Burton, PCP - General Nurse Practitioner - 05/17/21 LIGHTING DIRECTOR FOOD ORDER EXPEDITER [address] [phone] Aydee Burton, Assigned PCP 04/28/21 LIGHT[address] DIRECT[address] [phone] documented as of this encounter
--- OUTSIDE RECORDS SUMMARY | 2022-10-21 09:06 | XMS_ITS | Encounter Summary ---
:1980 Author Organization [place] Address [address] [facility] [place] [address] Care Team Providers Name Role Phone Aydee Burton APRN, CNP Primary Care Provider [phone] Aydee Burton APRN [facility] Unavailable [phone] Reason for Visit Rehab Therapy Physical Therapy (Routine) - Closed Specialty Diagnoses / Procedures Referred By Contact Refer red To Contact Diagnoses Neck pain Aydee Burton APRN [address] [phone] Referral ID Status Reason Start Date Expiration Date Visits Requ ested Visits Authorized [id number] Closed 05/21/2021 05/21/2022 1 1 Encounter Details Date Type Department Care Team Description 06/03/2021 Therapy Visit [facility] Aydee Burton Ch, APRN [address] [phone] Neck pain [place] [address] [address] [place] [address] [place] [address] [place] [address] Social History Tobacco Use [...] How often do you attend hinduism or church services? 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 No cisco network architect was used. Patient Health History [place] [...] medication, anti anxiety, vitamins. 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 Primary job tasks include: Computer work, lifting/carrying, [...] Sheet for this information) Short term and shelter goals: (See Goal Flow Sheet for this [...] Visit Pulmonology Obdulio Barrera MD [address] [phone] (Wo rk) 10/25/2022 PRE VISIT ENT Charo Burton MD Previsit [address] [place] [phone] (Wo rk) 10/25/2022 Office Visit ENT Charo Burton MD [address] [place] [phone] (Wo rk) 10/25/2022 Office Visit ENT Provider, Ent Dysphonia Dial Buffer 10/25/2022 Virtual Visit Pain & [place] [address] [place], [place] [address] 10/28/2022 Appointment Speech Therapy Anabel Chew, MARKETING RESEARCH INTERN [address] [phone] (Wo rk) 11/17/2022 Appointment Speech Therapy Anabel Chew MARKETING RESEARCH INTERN [address] [phone] (Wo rk) 12/01/2022 Office Visit Pain & [place] [address] [place], [place] [address] (Wo rk) 12/23/2022 Office Visit Neurology Colby Yeung MD [address] [phone] (Wo rk) documented as of this encounter Procedures Procedure Name Priority Date/Time Associated Diagnosis Comme nts [place] THERAPEUTIC Routine 06/03/2021 12:31 PM Neck pain EXERCISES. EA 15 MIN CDT documented in this encounter Visit Diagnoses Diagnosis Neck pain Cervicalgia documented in this encounter Additional Health Concerns Assessment Noted Time PHQ-9 Depression Total Score: 16 05/28/2021 2:58 PM CD T documented as of this encounter Care Teams Cabin Worker Relationship Specialty Start Date End Date Aydee Burton, PCP - General Nurse Practitioner - 05/17/21 RIVETER PNEUMATIC AIRWORTHINESS SAFETY INSPECTOR [facility] [address] [place] [phone] Aydee Burton, Assigned PCP 04/28/21 RIVETER PNEUMATIC AIRWORTHINESS SAFETY INSPECTOR [address] [place] [phone] documented as of this encounter
--- OUTSIDE RECORDS SUMMARY | 2022-10-21 09:06 | XMS_ITS | Encounter Summary ---
:1980 Author Organization [place] Address [address] [place] [address] Care Team Providers Name Role Phone Aydee Burton APRN, CNP Primary Care Provider Aydee Burton APRN MEDIA PRODUCTION OPERATOR Unavailable [phone] Reason for Visit Diagnostic Imaging Ultrasound (Routine) - Closed Specialty Diagnoses / Procedures Referred By Contact Refer red To Contact Diagnoses Pelvic pain in female Aydee Burton, Procedures US Pelvic Complete with Transvaginal ELADIO MEDIA PRODUCTION OPERATOR [address] [place] [address] Referral ID Status Reason Start Date Expiration Date Visits Requ ested Visits Authorized [id number] Closed 06/11/2021 06/11/2022 1 1 Encounter Details Date Type Department Care Team Description 06/15/2021 Ancillary [facility] Aydee Burton n in Procedure [facility] [place] ELADIO Mendez female [place] MEDIA PRODUCTION OPERATOR [address] [place] [id number] Social History Tobacco Use Types Packs/Day Years [...] How often do you attend muslim or pentecostalism services? 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 documented as of this encounter Miscellaneous Notes Result Encounter Note - Aydee Burton, ELADIO MEDIA PRODUCTION OPERATOR - 06/15/2021 8:20 AM CDT Dear Marta, [...] for this patient. Please call us at [phone] (or use [facility]) to address the above recommendations if needed. Thank you for choosing [facility]. It was an honor and a privilege to participate in your care. Healthy regards, TARA Spivey [facility] documented in this encounter Plan of Treatment Upcoming Encounters Date Type Specialty Care Team Description 10/21/2022 Office Visit Pulmonology Obdulio Barrera MD [address] [place] [phone] (Wo rk) 10/25/2022 PRE VISIT ENT Charo Burton MD Previsit [address] [place] [address] (Wo rk) 10/25/2022 Office Visit ENT Charo Burton MD [address] [place] [phone] (Wo rk) 10/25/2022 Office Visit ENT Provider, Jeannette Ent Dysphonia Cake Icer 10/25/2022 Virtual Visit [place] [address] [place], [place] [address] 10/28/2022 Appointment Speech Therapy Anabel Chew FEATHEREDGE MACHINE OPERATOR [address] [phone] (Wo rk) 11/17/2022 Appointment Speech Therapy Anabel Chew SLP [address] [phone] (Wo rk) 12/01/2022 Office Visit [place] [address] [place], [place] [address] (Wo rk) 12/23/2022 Office Visit Neurology Colby Yeung MD [address] [place] [phone] (Wo rk) documented as of this encounter [...] Laterality Volume Narrative 06/15/2021 9:58 AM CDT [facility] ULTRASOUND - PELVIC STUCCO MASON- Transabdominal and Transvaginal ?? Referring MD: Aydee [...] study. Katharina Moreno MD Obstetrics and Gynecology [facility] Aydee Burton DRILLER HAND MEDIA PRODUCTION OPERATOR [facility] ORDERABLES documented in this encounter Visit Diagnoses Diagnosis Pelvic pain in female Unspecified symptom associated with fema le genital organs documented in this encounter Additional Health Concerns Assessment Noted Time PHQ-9 Depression Total Score: 17 06/12/2021 7:02 AM CD T documented as of this encounter Care Teams Support Services Manager Relationship Specialty Start Date End Date Aydee Burton, PCP - General Nurse Practitioner - 05/17/21 DRILLER HANDValerio KOO [facility] [address] [place] [phone] Aydee Burton, Assigned PCP 04/28/[address]RILLER [address] [phone] documented as of this encounter
--- OUTSIDE RECORDS SUMMARY | 2022-10-21 09:06 | XMS_ITS | Encounter Summary ---
:1980 Author Organization [facility] Address [address] [place] [address] Care Team Providers Name Role Phone Aydee Burton APRN, CNP Primary Care Provider [phone] Aydee Burton APRN, CNP Unavailable [phone] Reason for Referral Consultation (Routine) - Closed Specialty Diagnoses / Procedures Referred By Contact Refer red To Contact Sleep Medicine Diagnoses Gasping for breath Aydee Burton, Sleep Clinic [place]CHANGE [place] [address] [address] [employer] [address] [phone] Fax: Referral ID Status Reason Start Date Expiration Date Visits Requ ested Visits Authorized [id number] Closed 06/13/2021 06/13/2022 1 1 Diagnostic Imaging Ultrasound (Routine) - Closed Specialty Diagnoses / Procedures Referred By Contact Refer red To Contact Diagnoses Pelvic pain in female Aydee Burton, Procedures US Pelvic Complete with Transvaginal EXCHANGE SPECIALIST EQUIPMENT MAINTENANCE SUPERINTENDENT [address] [place] [address] Referral ID Status Reason Start Date Expiration Date Visits Requ ested Visits Authorized [id number] Closed 06/11/2021 06/11/2022 1 1 iagnostic Imaging XR (Routine) - Closed Specialty Diagnoses / Procedures Referred By Contact Refer red To Contact Diagnoses Night sweats Aydee Burton APRN Procedures XR Chest 2 Views EQUIPMENT MAINTENANCE SUPERINTENDENT [address] [place] [address] Referral ID Status Reason Start Date Expiration Date Visits Requ ested Visits Authorized [id number] Closed 06/11/2021 06/11/2022 1 1 Reason for Visit Reason Comments Physical Encounter Details Date Type Department Care Team Description 06/11/2021 Office Visit [facility] Aydee Burton Routine ge neral medical examination at a health care facility (Primary Dx); [facility] [place] ELADIO Mendez CNP PTSD (post-traumatic stress disorder); [facility] [address] pisode of recurrent major depressive disorder (H) - on lamictal; [address] [place] Bilateral o ccipital neuralgia; [phone] Elevated LFTs; [phone] (Wo rk) Neck pain; Night swe ats; [...] How often do you attend judaism or scientology services? Never 08/05/2021 Do you [...] at Date Recorded Female 11/09/2021 7:53 PM CONCILIATOR COVID-19 Exposure Response Date Recorded In the [...] in this encounter Patient Instructions Patient InstructionsVicente Contreras, GREGORIO - 06/11/2021 10:30 AM CDT Images from [...] about depression and suicide prevention: ?? National [place] of Mental Health 717-851-8504rlt.[facility] hospital[facility].nih.gov ?? National Suicide Prevention Lifeline 442-096-8934 (748-627-JVKQ) www.suicidepreventionlifeline.org ?? National [place] on Mental Illness 427-676-6120duq.shantell.org ?? Mental Health Cqhfkof633-028-7645yht.hiha.org ?? National Suicide Fjuedau888-010-5586 (800-SUICIDE) Jhonathan last reviewed this educational content on 03/13/2020 ?? 1967-6107 The myShavingClub.com, [employer]. All rights reserved. This information is not [...] clinical psychologist, psychiatric or licensed clinical social psychologist, marriageand family counselor, or clergy. If you don't know how to contact such professionals and there is animmediate risk, call 911. Tell them you need help for a person who is thinking about suicide. Resources ?? National Suicide Prevention Xsntzjlw822-398-1293 (762-370-KDXJ)www.suicidepreventionlifeline.org ?? National Suicide Mzyyymb729-852-1957 (800-SUICIDE) ?? National [place] of Mental Rpguer905-803-9977kck.[facility].nih.gov ?? National [place] on Mental Aooisez255-778-9987bvx.shantell.org ?? Mental Health Skgzsrx987-212-3815ivo.hiha.org Jhonathan last reviewed this educational content on 11/13/2019 ?? 4210-9155 The myShavingClub.com, [employer]. All rights reserved. This information is not intended as a substitute for professional medical care. Always follow your healthcare professional's instructions. [facility] [address] [facility] [address], [address] [place] [address] New & Current Clients documented in this [...] 6 Additional concerns today: Yes Recheck from [facility] 06/01/2021 - she is doing every [...] work is in process Labs reviewed in EPIC BP Readings from Last 3 Encounters: 06/11/21 [...] teen years sinus for bloody noses ??? CHURCH WARDEN SURGERY not sure tubal ligation and ablasion [...] time. She is waiting to get into [facility]. Longstanding history of occipital pain. Takes [...] ultrasound also completed. IMPRESSION: There is some qjif-sx-tjhoaqex cervical kyphosis centered on the C4-C5 level [...] normal/bright Diagnostic Test Results: Labs reviewed in [facility] ASSESSMENT/PLAN: Marta was seen today for physical. [...] input and medication management. Referral placed to [facility] and has appointment for them already however not until the end of June. Did discuss [facility] as an option. Number provided to reach o mi for an appointment with them. Emergency room [...] lab collect; Future - HCG Qual, Urine ([id number]); Future - UA Macro with Reflex to Micro and Culture - lab collect - HCG Qual, Urine ([id number]) - Urine Microscopic - OFFICE/OUTPT VISIT,EST,LEVL V [...] USDA's MyPlate ASA Prophylaxis Lung CA Screening TARA Spivey-[facility] documented in this encounter Miscellaneous Notes Result Encounter Note - Aydee Burton APRN CNP - 06/11/2021 10:30 AM CDT Results placed in telephone encounter and routed to triage. TARA Spivey [facility] documented in this encounter Plan of Treatment Upcoming Encounters Date Type Specialty Care Team Description 10/21/2022 Office Visit Pulmonology Obdulio Barrera MD [address] [place] [address] [phone] (Wo rk) 10/25/2022 PRE VISIT ENT Charo Burton MD Previsit [address] [place] [phone] (Wo rk) 10/25/2022 Office Visit ENT Charo Burton MD [address] [place] [address] [phone] (Wo rk) 10/25/2022 Office Visit ENT Provider, Ent Dysphonia Mold Puller 10/25/2022 Virtual Visit Pain & Palliative [place] [address] [place], [place] [address] 10/28/2022 Appointment Speech Therapy Anabel Chew, FLAT IRONER [address] [phone] (Wo rk) 11/17/2022 Appointment Speech Therapy Anabel Chew, FLAT IRONER [address] [phone] (Wo rk) 12/01/2022 Office Visit Pain & [place] [address] [place], [place] [address] (Wo rk) 12/23/2022 Office Visit Neurology Colby Yeung MD [address] [place] [address] (Wo rk) Scheduled Referrals Name Type [...] Laterality Volume Narrative 06/15/2021 9:58 AM CDT [facility] ULTRASOUND - PELVIC CHURCH WARDEN- Transabdominal and Transvaginal ?? Referring MD: Aydee [...] study. Katharina Moreno MD Obstetrics and Gynecology [facility] Aydee Burton EXCHANGE SPECIALIST EQUIPMENT MAINTENANCE SUPERINTENDENT IM US ORDERABLES XR Chest 2 Views (06/11/2021 12:02 PM CDT) Anatomical Region Laterality Modality Chest Computed Radiography Specimen (Source) Anatomical Location Collection Method / Collectio n Time Received Time / Laterality Volume Impressions 06/11/2021 12:52 PM CDT IMPRESSION: No radiographic evidence of acute chest abnormality. JAH CLINE MD SYSTEM ID: ??[id number] Narrative 06/11/2021 12:52 PM CDT CHEST TWO [...] chest abnormality. JAH CLINE MD SYSTEM ID: [id number] Aydee Burton APRN, CNP IMG DIAGNOSTIC IMAGING [...] City/State/ZIP Code Phon e Number RV LABORATORY [facility] [place] [address] [phone] [facility] [address] [place] [address] S. E. Lab (no room number, 1st floor of clinic) [place] [address], [facility] [address] [place] [address] S. E. Lab (no room number, 1st [...] AM CDT 11:50 AM CDT Unknown Aydee uBrton APRN EQUIPMENT MAINTENANCE SUPERINTENDENT LAB - BLOOD ORDERABLES Performing Organization Address City/State/ZIP Code Phon e Number OX LABORATORY [place], [place] [phone] [place] [facility] [phone] [place] [address] Lab (no room number, 1st floor of clinic) [facility] [place], [place] [phone] [place] [phone] [address] Lab (no room number, 1st floor of clinic) Vitamin D Deficiency (06/11/2021 11:50 AM CDT) athologist Signature Vitamin D, 32 20 - 75 06/13/2021 [facility] Total ug/L 10:05 AM CDT SPECIALTY CORE (25-Hydroxy) Specimen Anatomical Collection Method / Collection Time Recei edil Time (Source) Location / Volume Laterality Blood STRUCTURE OF RIGHT Venipuncture / 06/11/2021 11:50 UPPER LIMB / Unknown AM CDT 11:50 AM CDT Unknown Narrative [facility] SPECIALTY CORE - 06/13/2021 10:0 5 AM CDT Season, race, dietary intake, and treatment affect the concentration of 44-amlfcup-Jdtfcfd D. Values may decrease during winter months [...] City/State/ZIP Code Ph[place] [address] CORE/PROT/ENDO Core/Prot/Endo [address] [facility] Building, Room 3-580 [facility] SPECIALTY CORE [facility] [place]ty [place] Lab [address], [facility] [address] [facility], Room L271-5 (ABNORMAL) GGT (06/11/2021 11:50 AM [...] LAB - BLOOD ORDERABLES Performing Organization Address City/[facility]/ZIP Code Phon e Number [facility] LABORATORY [place], [place] [phone] [place] [facility] [phone] [place] [address] Lab (no room number, 1st floor of clinic) [facility] [place], [place] [phone] [facility] [phone] [address] Lab (no room number, 1st floor [...] 11:50 AM CDT Unknown Aydee Burton APRN EQUIPMENT MAINTENANCE SUPERINTENDENT LAB - BLOOD ORDERABLES Performing Organization Address City/[facility] Phon e Number OX LABORATORY [place] [phone] [place] [facility] [phone] [place] [address] Lab (no room number, 1st floor of clinic) [facility] [place], [place] [phone] [facility] [address] Lab (no room number, 1st floor of clinic) HCG Qual, Urine ([id number]) (06/11/2021 11:50 AM CDT) [facility] Method Time Signature hCG Urine Negative Negative NIKOLAS 06/11/2021 [facility] Qualitative 12:01 PM CDT Comment: This test is for screening purp oses. Results should be interpreted along with the clinical picture. Confirmation testing is available if warranted by ordering [id number], HCG Quantitative . Specimen Anatomical Collection Method Collection Time Receive d Time (Source) Location / / Volume Laterality Urine MID-STREAM URINE Non-blood 06/11/2021 11:50 021 SPECIMEN / Unknown Collection / AM CDT 11:50 AM CDT Unknown Aydee Burton APRN EQUIPMENT MAINTENANCE SUPERINTENDENT LAB - URINE ORDERABLES Performing Organization Address City/State/[facility] Phon e Number RV LABORATORY [facility] [address] [facility] [address] [facility] S. E. Lab (no room number, 1st floor of clinic) [place] [address], [facility] [address] [facility] S. E. Lab (no room number, 1st floor of clinic) (ABNORMAL) UA Macro with Reflex to Micro and Culture - lab collect (06/11/2021 11:50 AM CDT) [facility] gist Method Time Signature Color Urine Yellow Colorless, 06/11/2021 [facility] Straw, Light 12:04 PM Yellow, CDT Yellow Appearance Urine Clear Clear 06/11/2021 RV LABORATOR Y 12:04 PM CDT Glucose Urine Negative Negative 06/11/2021 [facility] mg/dL 12:04 PM CDT Bilirubin Urine Negative Negative 06/11/2021 [facility] 12:04 PM CDT Ketones Urine Negative Negative 06/11/2021 [facility] mg/dL 12:04 PM CDT Specific [place] 1.025 1.003 - 06/11/2021 RV LABORATOR Y [...] 11:50 AM CDT Unknown Aydee Burton APRN EQUIPMENT MAINTENANCE SUPERINTENDENT LAB - URINE ORDERABLES Performing Organization Address City/State/ZIP Code Phon e Number RV LABORATORY [facility] [place] [address] [phone] [facility] [address] [facility] S. E. Lab (no room number, 1st floor of clinic) [place] [address], [facility] [address] [facility] S. E. Lab (no room number, 1st floor of clinic) HPV High Risk Types DNA Cervical (06/11/2021 11:07 AM CDT) [facility] Method Time Signature Other HR HPV Negative Negative 06/17/2021 [facility] 7:06 AM MOLECULAR CDT DIAGNOSTICS HPV16 DNA Negative Negative 06/17/2021 [facility] 7:06 AM MOLECULAR CDT DIAGNOSTICS HPV18 DNA Negative Negative 06/17/2021 [facility] 7:06 AM MOLECULAR CDT DIAGNOSTICS FINAL This patient's sample is negative for HPV DNA. 06/17/2021 [facility] DIAGNOS[facility] 7:06 AM MOLECULAR CDT DIAGNOSTICS This test was developed and its performance characteristics determined by the [facility], Molecular Diagnostics Laboratory. It has not been cleared or approved by the FDA. [facility] laboratory is regulated un andrés CLIA as [...] Organization Address City/State/ZIP Code Phon e Number [facility] DIAGNOSTICS [place], [place] [phone] Diagnostics [phone] [facility] [address] Building, Room 3580 [place], [place] [phone] DIAGNOSTICS Diagnostics Lab [address], [facility] [address] [facility], Room D210 HPV Hold (Lab Only) (06/11/2021 11:07 AM CDT) Specimen Anatomical Collection Method Collection Time Receive d Time (Source) Location / / Volume Laterality Brushing CERVIX UTERI Non-blood 06/11/2021 11:07 06/16/2021 8:51 STRUCTURE / Collection / AM CDT AM CDT Unknown Unknown Aydee Burton APRN, CNP LAB - BEAKER AP Performing Organization Address City/[facility]/ZIP Code Phon e Number [facility] [phone] Diagnostics [address] [facility] [address] Building, Room 3-580 Pap imaged thin layer screen with HPV - recommended age 30 - 65 years (06/11/2021 11:07 AM CDT) Component Value Ref Test Analysis Performed At [facility] Range Method Time Signature Interpretation Negative for 06/15/2021 [facility] E lectronically Intraepithelial 3:53 PM LABORATORY sig shi by Lesion or CDT Poventud Malignancy (NILM) Fu Mary mathur C T (ASCP) on 06/15/2021 a t 3:53 PM Specimen Satisfactory for 06/15/2021 [facility] Adequacy evaluation, 3:53 PM LABORATORY endocervical/crain CDT sformation zone component present Clinical none[ablation 06/15/2021 [facility] Information 3:53 PM LABORATORY CDT LMP/Menopause 06/08/2021 06/15/2021 [facility] Date 3:53 PM LABORATORY CDT Reflex Testing Yes regardless of 06/15/2021 [facility] result 3:53 PM LABORATORY CDT Previous No 06/15/2021 [facility] Abnormal? 3:53 PM LABORATORY CDT Performing Labs The technical 06/15/2021 [facility] component of this 3:53 PM LABORATORY testing was CDT completed at [facility] Laboratory Specimen Anatomical Collection Method Collection Time Receive d Time (Source) Location / / Volume Laterality Brushing CERVIX UTERI 06/11/2021 11:07 06/11/2021 STRUCTURE / AM CDT 11:26 AM CDT Unknown Aydee Burton APRN, CNP LAB - DAHIANA JORDAN Performing Organization Address City/State/ZIP Code Phon e Number SPECIALTY [place] [phone] [address] [facility] [address] Building, Room 3-580 [facility] LABORATORY [address] [place] [address], [facility] documented in this encounter Visit [...] documented as of this encounter Care Teams Application Integration Specialist Relationship Specialty Start Date End Date Aydee Burton, PCP - General Nurse Practitioner - 05/17/21 EXCHANGE SPECIALIST EQUIPMENT MAINTENANCE SUPERINTENDENT [address] [phone] Aydee Burton, Assigned PCP 04/28/[address] [phone] documented as of this encounter
--- OUTSIDE RECORDS SUMMARY | 2022-10-21 09:06 | XMS_ITS | Encounter Summary ---
:1980 Author Organization [facility] Address [address] [place] [address] Care Team Providers Name Role Phone Aydee Burton APRN SUPERVISOR PAYROLL Primary Care Provider [phone] Aydee Burton APRN SUPERVISOR PAYROLL Unavailable [phone] Reason for Visit Reason Onset Date Comments Refill Request 06/14/2021 Encounter Details Date Type Department Care Team Description 06/14/2021 Telephone [facility] Aydee Burton, Refill Request [place] APRN SUPERVISOR PAYROLL [address] [place] [address] [place] [phone] Social History Tobacco Use Types Packs/Day Years [...] How often do you attend gnosticist or zoroastrianism services? 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 documented as of this encounter Miscellaneous Notes Telephone Encounter - Aydee Burton APRN CNP - 06/14/2021 9:15 AM CDT Images from the original note were not included. Already addressed. MAURO Spivey Telephone Encounter - Carolyn Alejandro RN - 06/14/2021 9:11 AM CDT [facility] calling - stating pt was given a script for Cymbalta and was told t take 3 - 30 mg tabs daily - insurance will not cover it Can the script be changed to 60 mg and then a 30 mg tab ? Please review and advise Thank you Carolyn Alejandro RN, BSN [facility] documented in this encounter Plan of Treatment Upcoming Encounters Date Type Specialty Care Team Description 10/21/2022 Office Visit Pulmonology Obdulio Barrera MD [address] [place] [address] [phone] (Wo rk) 10/25/2022 PRE VISIT ENT Charo Burton MD Previsit [address] [place] [address] [phone] (Wo rk) 10/25/2022 Office Visit ENT Charo Burton MD [address] [place] [address] [phone] (Wo rk) 10/25/2022 Office Visit ENT Provider, Ent Dysphonia Orthopedic Designer 10/25/2022 Virtual Visit Pain & [place] [address] [place], [place] [address] 10/28/2022 Appointment Speech Therapy Anabel Chew, [facility] [address] [phone] (Wo rk) 11/17/2022 Appointment Speech Therapy Anabel Chew [facility] [address] [phone] (Wo rk) 12/01/2022 Office Visit Pain & [place] [address] [place], [place] [address] (Wo rk) 12/23/2022 Office Visit Neurology Colby Yeung MD [address] [place] [id number] (Wo rk) documented as of this encounter Visit Diagnoses Not on filedocumented in this encounter Additional Health Concerns Assessment Noted Time PHQ-9 Depression Total Score: 17 06/12/2021 7:02 AM CD T documented as of this encounter Care Teams Snubber Relationship Specialty Start Date End Date Aydee Burton, PCP - General Nurse Practitioner - 05/17/21 NEEDLE PUNCH MACHINE OPERATOR SUPERVISOR PAYROLL [facility] [address] [place] [address] [phone] Aydee Burton, Assigned PCP 04/28/21 NEEDLE PUNCH MACHINE OPERATOR [address] [phone] documented as of this encounter
--- OUTSIDE RECORDS SUMMARY | 2022-10-21 09:06 | XMS_ITS | Encounter Summary ---
:1980 Author Organization [facility] Address [address] [facility] [place] [address] Care Team Providers Name Role Phone Aydee Burton APRN, CNP Primary Care Provider Aydee Burton APRN [facility] Unavailable [phone] Reason for Visit Rehab Therapy Physical Therapy (Routine) - Closed Specialty Diagnoses / Procedures Referred By Contact Refer red To Contact Diagnoses Neck pain Aydee Burton APRN [place] [phone] [address] [phone] Referral ID Status Reason Start Date Expiration Date Visits Requ ested Visits Authorized [id number] Closed 05/21/2021 05/21/2022 1 1 Encounter Details Date Type Department Care Team Description 06/10/2021 Therapy Visit [facility] Aydee Burton Ch, APRN [address] [phone] Neck pain [place] [address] [address] [place] [address] [place] [address] [place] [address] Social History Tobacco Use [...] How often do you attend anabaptism or rastafarian services? 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 documented as of this encounter Plan of Treatment Upcoming Encounters Date Type Specialty Care Team Description 10/21/2022 Office Visit Pulmonology Obdulio Barrera MD [address] [place] [phone] (Wo rk) 10/25/2022 PRE VISIT ENT Charo Burton MD Previsit [address] [place], [place] [phone] (Wo rk) 10/25/2022 Office Visit ENT Charo Burton MD [address] [place], [place] 573805 (Wo rk) 10/25/2022 Office Visit ENT Provider, Ent Dysphonia Deputy Court Clerk 10/25/2022 Virtual Visit Pain & [place]iative [place] [address] [place], [place] [address] 10/28/2022 Appointment Speech Therapy Anabel Chew, SHOWER SCREEN INSTALLER [address] [place], [place] [phone] (Wo rk) 11/17/2022 Appointment Speech Therapy Anabel Chew, SHOWER SCREEN INSTALLER [address] [place], [place] 301155 (Wo rk) 12/01/2022 Office Visit Pain & [place] [address] [place], [place] [address] (Wo rk) 12/23/2022 Office Visit Neurology Colby Yeung MD [address] [place] [phone] (Wo rk) documented as of this encounter Procedures Procedure Name Priority Date/Time Associated Diagnosis Comme nts AL THERAPEUTIC Routine 06/10/2021 9:10 AM CDT Neck pain EXERCISES. EA 15 MIN AL ELECTRIC STIMULATION Routine 06/10/2021 9:10 AM CDT Neck pa in THERAPY AL HOT OR COLD PACKS Routine 06/10/2021 9:10 AM CDT Neck pain THERAPY documented in this encounter Visit Diagnoses Diagnosis Neck pain Cervicalgia documented in this encounter Additional Health Concerns Assessment Noted Time PHQ-9 Depression Total Score: 16 05/28/2021 2:58 PM CD T documented as of this encounter Care Teams Practice Support Specialist Relationship Specialty Start Date End Date Aydee Burton, PCP - General Nurse Practitioner - 05/17/21 MUCK HAULER MYCOLOGY TEACHER [facility] [address] [place] [address] [phone] Aydee Burton, Assigned PCP 04/28/21 MUCK HAULER MYCOLOGY TEACHER [address] [place] [address] [phone] documented as of this encounter
--- OUTSIDE RECORDS SUMMARY | 2022-10-21 09:07 | XMS_ITS | Encounter Summary ---
:1980 Author Organization [facility] Address [address] [facility] [place] [address] Care Team Providers Name Role Phone Aydee Nam APRN, CNP Primary Care Provider [phone] Aydee Nam APRN, CNP Unavailable [phone] Reason for Referral Mental Health Outpatient (Routine) - Closed Specialty Diagnoses / Procedures Referred By Contact Refer red To Contact Diagnoses Anxiety Depression, unspecified depression type PTSD (post-traumatic stress disorder) Aydee Nam APRN ACID CORRECTION HAND [address] [place] [address] Referral ID Status Reason Start Date Expiration Date Visits Requ ested Visits Authorized [id number] Closed 05/17/2021 05/17/2022 1 1 Diagnostic Imaging XR (Routine) - Closed Specialty Diagnoses / Procedures Referred By Contact Refer red To Contact Diagnoses Neck pain Aydee Nam APRN Procedures XR Cervical Spine 2/3 Views AC[facility] CORRECTION HAND [address] [place] [address] Referral ID Status Reason Start Date Expiration Date Visits Requ ested Visits Authorized [id number] Closed 05/17/2021 05/17/2022 1 1 Reason for Visit Reason Comments thyroid Encounter Details Date Type Department Care Team Description 05/17/2021 Office Visit [facility] Aydee Nam Abnormal t hyroid ultrasound (Primary Dx); [place] Excessive sweating; [address] [facility] [address] [facility] Other fatigue; [address] Neck pain; [place], [place], [place] [address] Palpitations; [address] Anxiety; [phone] Depressio n, unspecified depression type; PTSD (post-trau [...] How often do you attend mosque or amish services? 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 - XR Cervical Spine 3 Views Palpitations Normal EKG consider Zio patch monitoring if labs are normal or if symptoms persist - EKG 12-lead complete w/read - Clinics Anxiety Depression, unspecified depression type PTSD (post-traumatic stress disorder) Moving care from [facility] to [facility]. Needs new psych provider for medication management as well as psychology for counseling. - MENTAL HEALTH REFERRAL - Adult; Psychiatry; Psychiatry and Psychotherapy (Individual/Couple/FamilyTherapy); Collaborative Care Psychiatry Service and [facility] Counseling ; No - Patient must be [...] for Wellness exam fasting labs. Aydee Nam, BILINGUAL RESEARCH INTERVIEWER-BC [facility] Marta is a 41 year old [...] tried and outcome: None [facility] Reports multiple concerns: She is having left [...] She requests a psych provider within the [facility] system for her psych medications. No concern [...] Placed in a telephone encounter. TARA Spivey [facility] Addendum Note - Aydee Nam APRN CNP - 05/17/2021 7:00 AM CDT Addended by: AYDEE NAM on: 05/20/2021 09:27 AM Modules accepted: Orders documented in this encounter Plan of Treatment Upcoming Encounters Date Type Specialty Care Team Description 10/21/2022 Office Visit Pulmonology Obdulio Barrera MD [address] [address] (Wo rk) 10/25/2022 PRE VISIT Charo Carter MD Previsit [address] [place], [place] [address] (Wo rk) 10/25/2022 Office Visit Charo Carter MD [address] [place] [address] (Wo rk) 10/25/2022 Office Visit ENT Provider, Ent Dysphonia Felt Pad Cutter 10/25/2022 Virtual Visit [facility] [place] [address] [place], [place] [address] 10/28/2022 Appointment Speech Therapy Anabel Chew, BUSINESS ETHICS PROFESSOR [address] [address] (Wo rk) 11/17/2022 Appointment Speech Therapy Anabel Chew, BUSINESS ETHICS PROFESSOR [address] [id number] (Wo rk) 12/01/2022 Office Visit Pain & [place] [address] [place], [place] [address] (Wo rk) 12/23/2022 Office Visit Neurology Colby Yeung MD [address] [place], [place] [address] (Wo rk) Scheduled Referrals Name Type Priority Associated Diagnoses Order S [facility] REFERRAL - Referral Routine Anxiety Ordered: 05/17/2021 Adult; Psychiatry; Depression, unspecifie d Psychiatry and depression type Psychotherapy PTSD (post-traumatic (Individual/Couple/Family stress disorder ) Therapy); Collaborative Care Psychiatry Service and [facility] Counseling ; No - Patient must be [...] 9:24 AM CDT IMPRESSION: There is some adsd-rn-qgrpafrw cervical kyphosis centered on the C4-C5 level which could be positi onal or due to some muscle spasm. Posterior alignment is otherwise normal. Vertebral body heights are maintained. Soft tissues are unremar kable. ARON CAPPS MD SYSTEM ID: ??[id number] Narrative 05/17/2021 9:24 AM CDT CERVICAL SPINE THREE VIEWS ??05/17/2021 8:12 AM HISTORY: Neck pain. COMPARISON: None. Procedure Note Aron Capps MD - 05/17/2021Form atting of this note might be different from the original. CERVICAL SPINE THREE VIEWS 05/17/2021 8:12 AM HISTORY: Neck pain. COMPARISON: None. IMPRESSION: There is some qquf-py-jzvell te cervical kyphosis centered on the C4-C5 level which could be positi onal or due to some muscle spasm. Posterior alignment is otherwise normal. Vertebral body heights are maintained. Soft tissues are unremar kable. ARON CAPPS MD SYSTEM ID: [id number] Aydee Nam APRN, CNP IMG DIAGNOSTIC IMAGING O RDERABLES (ABNORMAL) GGT (05/17/2021 8:03 AM CDT) athologist Signature GGT 207 (H) 0 - 40 U/L 05/20/2021 [facility] 10:55 AM CDT [facility] Specimen Anatomical Collection Method Collection Time Receive d Time (Source) Location / / Volume Laterality 05/17/2021 8:03 AM 8:04 CDT AM CDT Aydee Nam APRN, CNP LAB - BLOOD ORDERABLES Performing Organization Address City/State/ZIP Code Phon e Number [facility] [address] [place], [place] [id number] [place] [address] Hepatitis C antibody (05/17/2021 8:03 AM CDT) [facility] Method Time Signature Hepatitis C Nonreactive NR^Nonrea 05/17/2021 [facility] ctive 5:49 PM CDT [facility] Comment: Assay performance characteristics have n ot been established for newborns, infants, and children Specimen Anatomical Collection Method Collection Time Receive d Time (Source) Location / / Volume Laterality Blood 05/17/2021 8:03 AM 8:04 CDT AM CDT Aydee Vanessa Nam VIDEO SOFTWARE ENGINEER ACID CORRECTION HAND LAB - BLOOD ORDERABLES Performing Organization Address City/State/ZIP Code Phon e Number [facility] [address] [place], [place] [id number] [place] [address] HIV Antigen Antibody Combo (05/17/2021 8:03 AM CDT) [facility] g[facility] Method Time Signature HIV Antigen Nonreactive NR^Nonrea 05/17/2021 [facility] ctive 5:49 PM CDT [facility] Comment: HIV-1 p24 Ag & HIV-1/HIV-2 Ab N ot Detected Specimen Anatomical Collection Method Collection Time Receive d Time (Source) Location / / Volume Laterality Blood 05/17/2021 8:03 AM 8:04 CDT AM CDT Aydee Nam APRN ACID CORRECTION HAND LAB - BLOOD ORDERABLES Performing Organization Address City/[facility]/ZIP Code Phon e Number [facility] [address] [place] [address] [facility] Iron and iron binding capacity (05/17/2021 8:03 AM CDT) athologist Signature Iron 89 35 - 180 05/17/2021 [facility] ug/dL 1:31 PM CDT [facility] Iron Binding 361 240 - 430 05/17/2021 [facility] Cap ug/dL 1:[address] [facility] Iron Saturation 25 15 - 46 % 05/17/2021 [facility] 1:[address] [facility] Specimen Anatomical Collection Method Collection Time Receive d Time (Source) Location / / Volume Laterality Blood 05/17/2021 8:03 AM 8:04 CDT AM CDT Aydee Nam APRN ACID CORRECTION HAND LAB - BLOOD ORDERABLES Performing Organization Address City/State/ZIP Code Phon e Number [facility] [address] [address] [phone] [facility] [address] [place], [place] [address] [facility] [address] [address], [place] [phone] Ferritin (05/17/2021 8:03 AM CDT) P athologist Signature Ferritin 24 12 - 150 05/17/2021 [facility] ng/mL 1:35 PM CDT [facility] Specimen Anatomical Collection Method Collection Time Receive d Time (Source) Location / / Volume Laterality Blood 05/17/2021 8:03 AM 8:04 CDT AM CDT Aydee Nam APRN ACID CORRECTION HAND LAB - BLOOD ORDERABLES Performing Organization Address City/[facility]/ZIP Code Phon e Number [facility] [address] [place] [address] Lamotrigine Level (05/17/2021 8:03 AM CDT) athologist Signature Lamotrigine 2.6 2.5 - 15.0 05/19/2021 [place] Level ug/mL 8:46 PM CDT [facility] Comment: (Note) INTERPRETIVE INFORMATION: ??Lamotrigine Therapeutic Range: ??2.5-15.0 ug/mL ? Toxic: ??Not well establ ished Pharmacokinetics varies widely, particul becki with co-medications and/or compromised renal function. ??Adverse effects may include dizziness, somnolenc e, nausea and vomiting. Performed By: [employer] [address] [place] [id number] Garment Manufacturer: Florence Naranjo MD Specimen Anatomical Collection Method Collection Time Receive d Time (Source) Location / / Volume Laterality Blood 05/17/2021 8:03 AM 8:04 CDT AM CDT Aydee Nam APRN ACID CORRECTION HAND LAB - BLOOD ORDERABLES Performing Organization Address City/[facility]/ZIP Code Phon e Number [facility] [address] [place], [place] [address] (ABNORMAL) Vitamin D Deficiency (05/17/2021 8:03 AM CDT) athologist Signature Vitamin D 17 (L) 20 - 75 05/17/2021 [facility] Deficiency ug/L 5:49 PM CDT [facility] Comment: Season, race, dietary intake, and treatm ent affect the concentration of 01-gsivynl-Gizvnae D. Values may decreas e during winter [...] 8:04 CDT AM CDT Aydee Nam APRN ACID CORRECTION HAND LAB - BLOOD ORDERABLES Performing Organization Address City/State/ZIP Code Phon e Number [facility] [address] (ABNORMAL) Comprehensive metabolic panel (BMP + Alb, Alk Phos, ALT, AST, Total. Bili, TP) (05/17/2021 8:03 AM CDT) athologist Signature Sodium 139 133 - 144 05/17/2021 [facility] mmol/L 1:06 PM T [facility] Potassium 3.6 3.4 - 5.3 05/17/2021 [facility] mmol/L 1:06 PM T [facility] Chloride 107 94 - 109 05/17/2021 [facility] mmol/L 1:06 PM T [facility] Carbon Dioxide 26 20 - 32 05/17/2021 [place] [facility] mmol/L 1:26 PM T [facility] Anion Gap 6 3 - 14 05/17/2021 [facility] mmol/L 1:26 PM T [facility] Glucose 95 70 - 99 05/17/2021 [facility] mg/dL 1:26 PM T [facility] Comment: Fasting specimen Urea Nitrogen 12 7 - 30 mg/dL 05/17/2021 1:26 PM T [facility] Creatinine 0.77 0.52 - 1.04 mg/dL 05/17/2021 1:26 PM CD T [facility] GFR Estimate >90 >60 05/17/2021 1:26 PM CDT [facility] mL/min/{1.73_m2} [facility] Comment: Non GFR Calc Starting 10/30/2018, serum creatinine ba sed estimated GFR (eGFR) will be calculated using the Chronic Kidney Dise [facility] Epidemiology Collaboration (CKD-EPI) equation. GFR Estimate If >90 >60 mL/min/{1.73_m2} 05/17/2021 1: [address] [facility] Black T [facility] Comment: GFR Calc Starting 10/30/2018, serum creatinine ba sed estimated GFR (eGFR) will be calculated using the Chronic Kidney Dise [facility] Epidemiology Collaboration (CKD-EPI) equation. Calcium 8.8 8.5 - 10.1 05/17/2021 1:26 PM [place] [facility] mg/dL [facility] Bilirubin Total 0.5 0.2 - 1.3 05/17/2021 1:33 PM [facility] [place] mg/dL [facility] Albumin 3.6 3.4 - 5.0 g/dL 05/17/2021 1:33 PM [facility] EW [facility] Protein Total 6.9 6.8 - 8.8 g/dL 05/17/2021 1:[address] [facility] Alkaline Phosphatase 112 40 - 150 U/L 05/17/2021 1:33 PM [facility] ALT 136 (H) 0 - 50 U/L 05/17/2021 1:33 PM [facility] AST 47 (H) 0 - 45 U/L 05/17/2021 1:33 PM [facility] Specimen Anatomical Collection Method Collection Time Receive d Time (Source) Location / / Volume Laterality Blood 05/17/2021 8:03 AM 8:04 CDT AM CDT Aydee Nam APRN ACID CORRECTION HAND LAB - BLOOD ORDERABLES Performing Organization Address City/State/ZIP Code Phon e Number [facility] [address] [address] [facility] [address] [place], [place] [address] [facility] [address] [place] [address], [place] [phone] (ABNORMAL) Lipid panel reflex to direct LDL Fasting (05/17/2021 8:03 AM CDT) P athologist Signature Cholesterol 251 (H) <200 mg/dL 05/17/2021 [place] 1:[address] [facility] Comment: Desirable: <200 mg/dl Triglycerides 141 <150 mg/dL 05/17/2021 1:35 PM CDT [facility] Comment: Fasting specimen HDL Cholesterol 65 >49 mg/dL 05/17/2021 1:34 PM [facility] LDL Cholesterol 158 (H) <100 mg/dL 05/17/2021 1:35 PM [facility] Comment: Above desirable: ??100-129 mg/dl Borderline High: ??130-159 mg/dL High: ? 160-189 mg/dL Very high: ? >189 mg/dl Non HDL Cholesterol 186 (H) <130 mg/dL 05/17/2021 1:34 PM [facility] Comment: Above Desirable: ??130-159 mg/dl Borderline high: ??160-189 mg/dl High: ? 190-219 mg/dl Very high: ? >219 mg/dl Specimen Anatomical Collection Method Collection Time Receive d Time (Source) Location / / Volume Laterality Blood 05/17/2021 8:03 AM 8:04 CDT AM CDT Aydee Nam VIDEO SOFTWARE ENGINEER ACID CORRECTION HAND LAB - BLOOD ORDERABLES Performing Organization Address City/State/ZIP Code Phon e Number [facility] [address] [place], [place] [address] [facility] [address] [place] [address], [place] [phone] TSH with free T4 reflex (05/17/2021 8:03 AM CDT) athologist Signature TSH 1.65 0.40 - 4.00 05/17/2021 [facility] mU/L 1:40 PM CDT [facility] Specimen Anatomical Collection Method Collection Time Receive d Time (Source) Location / / Volume Laterality Blood 05/17/2021 8:03 AM 1 8:04 CDT AM CDT Aydee Nam APRN, CNP LAB - BLOOD ORDERABLES Performing Organization Address City/State/ZIP Code Phon e Number [facility] [address] [place] [address] ESR: Erythrocyte sedimentation rate (05/17/2021 8:03 AM CDT) athologist Signature Sed Rate 9 0 - 20 mm/h 05/17/2021 [place] 8:17 AM CDT [facility] Specimen Anatomical Collection Method Collection Time Receive d Time (Source) Location / / Volume Laterality Blood 05/17/2021 8:03 AM 1 8:04 CDT AM CDT Aydee Nam APRN, CNP LAB - BLOOD ORDERABLES Performing Organization Address City/[facility]/ZIP Code Phon e Number [address] 55 [facility] [phone] CRP, inflammation (05/17/2021 8:03 AM CDT) Analysis Performed At Patho logist Time Signature CRP Inflammation <2.9 0.0 - 8.0 05/17/2021 [place] [facility] F mg/L 2:17 PM CDT [facility] Specimen Anatomical Collection Method Collection Time Receive d Time (Source) Location / / Volume Laterality Blood 05/17/2021 8:03 AM 8:04 CDT AM CDT Aydee Nam APRN, CNP LAB - BLOOD ORDERABLES Performing Organization Address City/[facility]/ZIP Code Phon e Number [address] [address] [facility] CBC with platelets and differential (05/17/2021 8:03 AM CDT) Patholo gist Method Time Signature WBC 5.2 4.0 - 05/17/2021 [facility] 11.0 8:14 AM CDT [facility] 10e9/L [place] RBC Count 4.10 3.8 - 5.2 05/17/2021 [facility] 10e12/L 8:14 AM CDT [facility] [place] Hemoglobin 12.9 11.7 - 05/17/2021 [facility] 15.7 g/dL 8:14 AM CDT [facility] [place] Hematocrit 38.7 35.0 - 05/17/2021 [facility] 47.0 % 8:14 AM CDT [facility] [place] MCV 94 78 - 100 05/17/2021 [facility] fl 8:14 AM CDT [facility] [place] MCH 31.5 26.5 - 05/17/2021 [facility] 33.0 pg 8:14 AM CDT [facility] [place] MCHC 33.3 31.5 - 05/17/2021 [facility] 36.5 g/dL 8:14 AM CDT [facility] [place] RDW 12.3 10.0 - 05/17/2021 [facility] 15.0 % 8:14 AM CDT [facility] [place] Platelet Count 277 150 - 450 05/17/2021 [facility] 10e9/L 8:14 AM CDT [facility] [place] % Neutrophils 61.1 % 05/17/2021 [facility] 8:14 AM CDT [facility] [place] % Lymphocytes 26.2 % 05/17/2021 [facility] 8:14 AM CDT [facility] [place] % Monocytes 10.0 % 05/17/2021 [facility] 8:14 AM CDT [facility] [place] % Eosinophils 1.9 % 05/17/2021 [facility] 8:14 AM CDT [facility] [place] % Basophils 0.8 % 05/17/2021 [facility] 8:14 AM CDT [facility] [place] Absolute 3.2 1.6 - 8.3 05/17/2021 [facility] Neutrophil 10e9/L 8:14 AM CDT [facility] [place] Absolute 1.4 0.8 - 5.3 05/17/2021 [facility] Lymphocytes 10e9/L 8:14 AM CDT [facility] [place] Absolute 0.5 0.0 - 1.3 05/17/2021 [facility] Monocytes 10e9/L 8:14 AM CDT [facility] [place] Absolute 0.1 0.0 - 0.7 05/17/2021 [facility] Eosinophils 10e9/L 8:14 AM CDT [facility] [place] Absolute 0.0 0.0 - 0.2 05/17/2021 [facility] Basophils 10e9/L 8:14 AM CDT [facility] [place] Diff Method Automated 05/17/2021 [place] Method 8:14 AM CDT [facility] [place] Specimen Anatomical Collection Method Collection Time Receive d Time (Source) Location / / Volume Laterality Blood 05/17/2021 8:03 AM 8:04 CDT AM CDT Aydee Nam APRN, CNP LAB - BLOOD ORDERABLES Performing Organization Address City/State/ZIP Code Phon e Number [facility] [place] [address] [place] [address] EKG 12-lead complete w/read - [...] Other abnormal blood chemistry Neck pain Cervicalgia documented in this encounter Care Teams Monument Mason Relationship Specialty Start Date End Date Aydee Nam, PCP - General Nurse Practitioner - 05/17/21 [place] KOO [address] [address] Aydee Nam, Assigned PCP 04/28/21 ELADIO KOO [address] [place] [phone] documented as of this encounter
--- OUTSIDE RECORDS SUMMARY | 2022-10-21 09:07 | XMS_ITS | Encounter Summary ---
:1980 Author Organization [facility] Address [address] [facility] [place] [address] Care Team Providers Name Role Phone Aydee Burton DESIGN MAINTENANCE ENGINEER HEEL NAILING MACHINE OPERATOR Primary Care Provider [phone] Aydee Burton DESIGN MAINTENANCE ENGINEER HEEL NAILING MACHINE OPERATOR Unavailable [phone] Louisa Hood DESIGN MAINTENANCE ENGINEER HEEL NAILING MACHINE OPERATOR Unavailable [phone] Se Levy ACCOUNT ASSISTANT Unavailable Unavailable Anny Bernabe Unavailable Unavailable Clari Ruiz [facility] Unavailable [phone] Angel Hannah MD Unavailable Mago Swift LIBRARY SERVICES ASSISTANT Unavailable Encounter Details Date Type Department Care Team Description 05/04/2021 Medical Correspondence [facility] Scan, CLINIC REFERRAL Health Info Mgmt Non-Provider [facility] [address] [place] [address] Social History Tobacco Use Types [...] How often do you attend rastafari or scientologist services? Never 08/05/2021 Do you [...] at Date Recorded Female 11/09/2021 7:53 PM HURL SHAKER COVID-19 Exposure Response Date Recorded In the last month, have you been in contact with No / Unsure 07/07/2021 3:26 PM CDT someone who was confirmed or suspected to have Coronavirus / COVID-19? documented as of this encounter Plan of Treatment Upcoming Encounters Date Type Specialty Care Team Description 10/21/2022 Office Visit Pulmonology Obdulio Barrera MD [address] [place] [address] (Wo rk) 10/25/2022 PRE VISIT ENT Charo Burton MD Previsit [address] [place] [address] (Estefanía rk) 10/25/2022 Office Visit Charo Carter MD [address] [place] [address] (Estefanía casanova) 10/25/2022 Office Visit ENT Provider, Ent Dysphonia Resin Filterer 10/25/2022 Virtual Visit Pain & [place] [address] [place], [place] [address] 10/28/2022 Appointment Speech Therapy Anabel Chew, AGGREGATE CONVEYOR OPERATOR [address] [address] (Wo rk) 11/17/2022 Appointment Speech Therapy Anabel Chew, AGGREGATE CONVEYOR OPERATOR [address] [phone] (Wo rk) 12/01/2022 Office Visit Pain & [place] [address] [place], [place] [address] (Wo rk) 12/23/2022 Office Visit Neurology Colby Yeung MD [address] [place] [address] (Wo rk) documented as of this encounter Visit Diagnoses Not on filedocumented in this encounter Care Teams Mailing Clerk Relationship Specialty Start Date End Date Aydee Burton, PCP - General Nurse Practitioner - 05/17/21 DESIGN MAINTENANCE ENGINEER HEEL NAILING MACHINE OPERATOR Family [address] [place], [place] [address] Aydee Burton, Assigned PCP 04/28/21 DESIGN MAINTENANCE ENGINEER HEEL NAILING MACHINE OPERATOR [address] [place], [place] [phone] Louisa Hood, Assigned Neuroscience 07/11/21 DESIGN MAINTENANCE ENGINEER HEEL NAILING MACHINE OPERATOR Provider [address] [place] [phone] Se Levy, Lead Automobile Glass Technician 08/05/21 05/12/22 [facility] 08/05/21 09/30/21 Worker Clari Ruiz Pharmacist Pharmacist 08/06/21 06/07/22 Jocelyn [facility] [address] [place] [address] [place], Assigned Sleep 08/01/21 Angel Turcios, Provider [address] [place] [address] Mago Swift, [facility] Lead Automobile Glass Technician Manager Wastewater - 08/05/21 Clinical documented as of this encounter
--- OUTSIDE RECORDS SUMMARY | 2022-10-21 09:07 | XMS_ITS | Encounter Summary ---
:1980 Author Organization [place] Address [address] [place] [address] Care Team Providers Name Role Phone Aydee Burton NETWORK PROGRAMMER INDUSTRIAL TWISTING MACHINE OPERATOR Primary Care Provider Aydee Burton NETWORK PROGRAMMER INDUSTRIAL TWISTING MACHINE OPERATOR Unavailable [phone] Louisa Hood NETWORK PROGRAMMER INDUSTRIAL TWISTING MACHINE OPERATOR Unavailable [phone] Se Levy [facility] Unavailable Unavailable Anny Bernabe Unavailable Unavailable Clari Ruiz [facility] Unavailable [phone] Angle Hannah MD Unavailable Lesly Celaya MD Unavailable Elizabeth Mcintyre [facility] Unavailable Tawana Patel MA Unavailable Unavailable Ramses Mcpherson MD Unavailable [phone] Marleny Maloney Unavailable Unavailable Obdulio Barrera MD Unavailable Obdulio Barrera MD Unavailable [phone] Lesvia Stanley Unavailable Marilia Deluna PhD Unavailable Niyah Decker [facility] Unavailable Clari Poole [facility] Unavailable Lesvia Stanleyn Unavailable Clari Ruiz [facility] Unavailable [phone] Niyah Warner Unavailable Delia Avila [facility] Unavailable [phone] Delia Avila [facility] Unavailable [phone] SchwNiyah grossman [facility] Unavailable Jamison[facility]ago [facility] Unavailable Niyah Decker [facility] Unavailable Simona Leela [facility] Unavailable [facility] Unavailable Marvin Miranda MD Unavailable Marvin Miranda MD Unavailable Clari Ruiz [facility] Unavailable Encounter Details Date Type Department Care Team Description 01/21/2021 External Order [facility] Outside, Provide r Results Molecular Diagnostic s [address] [place] [phone] Social History Tobacco Use Types Packs/Day Years [...] How often do you attend hoahaoism or synagogue services? 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/2021 7:53 PM SUPPLY CHAIN DIRECTOR documented as of this encounter Plan of Treatment Upcoming Encounters Date Type Specialty Care Team Description 10/21/2022 Office Visit Pulmonology Obdulio Barrera MD 420 [facility] [address] [place], [place] [address] (Wo rk) 10/25/2022 PRE VISIT ENT Charo Burton MD Previsit [address] [place], [place] [address] (Wo rk) 10/25/2022 Office Visit Charo Carter MD [address] [place] [address] (Wo rk) 10/25/2022 Office Visit ENT Provider, Jeannette Ent Dysphonia Special Loan Officer 10/25/2022 Virtual Visit Pain & Palliative [place] [address] [place], [place] [address] 10/28/2022 Appointment Speech Therapy Anabel Chew, CELINE [address] [address] (Wo rk) 11/17/2022 Appointment Speech Therapy Anabel Chew SLP [place] [address] [place], [place] [address] (Wo rk) 12/01/2022 Office Visit Pain & [place] [address] [place], [place] [address] (Wo rk) 12/23/2022 Office Visit Neurology Colby Yeung MD [address] [place] [address] (Wo rk) documented as of this encounter Visit Diagnoses Not on filedocumented in this encounter Additional Health Concerns Infection Onset Date Last Indicated Resolved Time Rule Out COVID-19 01/14/2022 01/14/2022 01/14/2022 6:2 9 PM SUPPLY CHAIN DIRECTOR Rule Out COVID-19 03/08/2022 03/08/2022 03/08/2022 4:1 9 PM CDT Rule Out Pertussis 03/08/2022 03/08/2022 03/09/2022 9: 56 AM CDT Rule Out Pertussis 04/05/2022 04/05/2022 04/06/2022 10 :34 AM CDT documented as of this encounter Care Teams Solar Energy Systems Engineer Relationship Specialty Start Date End Date Aydee Burton PCP - General Nurse Practitioner - 05/17/21 ELADIO Mendez INDUSTRIAL TWISTING MACHINE OPERATOR Family [address] [place], [place] [address] Aydee Burton Assigned PCP 04/28/21 ELADIO Mendez INDUSTRIAL TWISTING MACHINE OPERATOR [address] [place], [place] [address] Louisa Hood Assigned Neuroscience 07/11/21 ELADIO Recinos INDUSTRIAL TWISTING MACHINE OPERATOR Provider [address] [place], [place] [address] Se Levy, Lead Brain Picker 08/05/21 05/12/22 [facility] Anny Bernabe [facility] 08/05/21 09/30/21 Worker Clari Ruiz Pharmacist Pharmacist 08/06/21 06/07/22 Jocelyn [facility] [address] [place] [address] [place], Assigned Sleep 08/01/21 Angel Turcios, Provider [address] [place], [place] [phone] Lesly Celaya MD Assigned Surgical 09/05/[address] [place] [address] Elizabeth Mcintyre CNM Assigned OBGYN 09/05/21 11/06/21 [address] [facility] S Provider [place], [place] [phone] [facility] 09/[facility]21 MA Worker Ramses Mcpherson Assigned OBGYN 11/07/21 MD Onesimo Provider [address] [place] [address] Marleny Maloney Financial Resource 01/17/22 01/17/22 Worker Obdulio Barrera MD Critical Care 01/24/22 MD Leo [address] [address] Obdulio Barrera Assigned Pulmonology 02/06/22 MD Leo Provider 420 [facility] 276 [place] [address] Lesvia Stanley, Cardiac Rehabilitation 03/03/22 03/03/23 EP Therapist [facility] [address] [place] [phone] Marilia Deluna, Assigned Behavioral 02/20/22 PhD Health Provider [address] [place] [address] Niyah Decker, [facility] Pharmacist Pharmacist 03/07/22 420 [facility] [address] [place], [place] [phone] Clari Poole, Pharmacist Pharmacist 03/07/22 06/15/22 [facility] [address] [facility] [place] [address] Lesvia Stanley, Cardiac Rehabilitation 03/17/22 03/17/23 EP Therapist [facility] [address] [facility] [place] [address] Clari Ruiz Assigned MTM 04/09/22 05/27/22 Jocelyn [facility] Pharmacist [address] [place] [address] Niyah Warner, Lead Brain Picker Primary Care - CC 06/27/22 RN Delia Avila Pharmacist Pharmacist 06/07/22 Mel [facility] [address] [place] [address] Delia Avila Assigned MTM 06/11/22 06/24/22 Mel [facility] Pharmacist [address] [place] [phone] Niyah Decker, [facility] Assigned MTM 05/28/22 06/10/22 420 [facility] Pharmacist [address] [place] [address] Mago Swift, Lead Brain Picker Bakery Worker - 08/05/21 [facility] Clinical Niyah Decker, [facility] Assigned MTM 06/25/22 07/29/22 420 [facility] Pharmacist [address] [place] [address] Leela Jarvis, [facility] Pharmacist 07/26/22 05/15/23 [address] [facility] [address] [place] [id number] Niyah Decker [facility] Assigned MTM 08/10/22 09/16/22 420 [facility] Pharmacist [address] [place], [place] [phone] Marvin Miranda MD Gastroenterology 09/21/[address] [facility] [address] [place], [place] [phone] Marvin Miranda, Assigned 10/01/22 Gastroenterology 516 [facility] Provider [address] [place], [place] [phone] Clari Ruiz Assigned [place] 09/17/22 Jocelyn [facility] Pharmacist [address] [place] [address] documented as of this encounter
--- OUTSIDE RECORDS SUMMARY | 2022-10-21 09:07 | XMS_ITS | Encounter Summary ---
:1980 Author Organization [place] Address [address] [place] [address] Care Team Providers Name Role Phone Aydee Burton APRN FITNESS TEACHER Primary Care Provider [phone] Aydee Burton APRN FITNESS TEACHER Unavailable [phone] Reason for Visit Reason Comments UTI Encounter Details Date Type Department Care Team Description 05/26/2021 Virtual Visit [facility] Arvin Wheeler turtle mountain cystitis without hematuria (Primary Dx); Clinic OlmitoVamsi Hidalgo MD Candidiasis of vagina [address] [place] [address] [place] [phone] Social History Tobacco Use Types Packs/Day Years [...] How often do you attend restoration or protestant services? Never 08/05/2021 Do you [...] at Date Recorded Female 11/09/2021 7:53 PM SAMPLER AND TEST PREPARER COVID-19 Exposure Response Date Recorded In [...] be resent by: Text to cell phone: [phone] Will anyone else be joining your video visit? No Video Start Time: 2:43pm Assessment & Plan Acute cystitis without hematuria Encouraged her to contact [facility] lab to get results of culture and [...] fail to improve. Arvin Wheeler Jr, MD [facility] Arturo Lozano is a 41 year old who presents for the following health issues HPI ED/UC Followup: Facility: [facility] Date of visit: 05/24/2021 Reason [...] (pt. Location): Home Distant Location (provider location): [facility] Platform used for Video Visit: Becka documented in this encounter Plan of Treatment Upcoming Encounters Date Type Specialty Care Team Description 10/21/2022 Office Visit Pulmonology Obdulio Barrera MD 420 [facility] 276 [place], [place] [address] (Wo rk) 10/25/2022 PRE VISIT ENT Charo Burton MD Previsit [address] [place] [phone] (Wo rk) 10/25/2022 Office Visit ENT Charo Burton MD [address] [place] [phone] (Wo rk) 10/25/2022 Office Visit ENT Provider, Ent Dysphonia Carpenter Mate 10/25/2022 Virtual Visit Pain & Palliative [place] [address] [place], [place] [address] 10/28/2022 Appointment Speech Therapy Anabel Chew, KNUCKLER [address] [place], [place] [address] (Wo rk) 11/17/2022 Appointment Speech Therapy Anabel Chew, KNUCKLER [address] [place], [place] [address] (Wo rk) 12/01/2022 Office Visit Pain & [place] [address] [place], [place] [address] (Wo rk) 12/23/2022 Office Visit Neurology Colby Yeung MD [address] [place] [address] (Wo rk) documented as of this encounter Visit Diagnoses Diagnosis Acute cystitis without hematuria - Prima ry Acute cystitis Candidiasis of vagina Candidiasis of vulva and vagina documented in this encounter Care Teams Emergency Room Tech Relationship Specialty Start Date End Date Aydee Burton, PCP - General Nurse Practitioner - 05/17/21 WEIGH AND CHARGE WORKER FITNESS TEACHER [facility] [address] [place], [place] [address] Aydee Burton, Assigned PCP 04/28/21 WEIGH AND CHARGE WORKER FITNESS TEACHER [address] [place], [place] [address] documented as of this encounter
--- OUTSIDE RECORDS SUMMARY | 2022-10-21 09:07 | XMS_ITS | Encounter Summary ---
:1980 Author Organization [place] Address [address] [place] [address] Care Team Providers Name Role Phone Aydee Burton APRN, CNP Primary Care Provider [phone] Aydee Butron APRN CHIEF COUNSEL Unavailable [phone] Encounter Details Date Type Department Care Team [...] at Date Recorded Female 11/09/2021 7:53 PM COMPLIANCE SPECIALIST COVID-19 Exposure Response Date Recorded In the last month, have you been in contact with No / Unsure 05/17/2021 7:03 AM CDT someone who was confirmed or suspected to have Coronavirus / COVID-19? documented as of this encounter Plan of Treatment Upcoming Encounters Date Type Specialty Care Team Description 10/21/2022 Office Visit Pulmonology Obdulio Barrera MD [address] [place] [address] [phone] (Wo rk) 10/25/2022 PRE VISIT ENT Charo Burton MD Previsit [address] [place] [phone] (Wo rk) 10/25/2022 Office Visit Charo Carter MD [address] [place] [address] [phone] (Wo rk) 10/25/2022 Office Visit ENT Provider, Ent Dysphonia Landing Worker 10/25/2022 Virtual Visit Pain & Palliative [place] [address] [place], [place] [address] 10/28/2022 Appointment Speech Therapy Anabel Chew, LIGHT RAIL TRANSIT OPERATOR [address] [address] (Wo rk) 11/17/2022 Appointment Speech Therapy Anabel Chew SLP [address] [address]37[address] (Wo rk) 12/01/2022 Office Visit [place] [address] [place] [address]ce Argu[place] [address] (Wo rk) 12/23/2022 Office Visit Neurology Colby Yeung MD [address] [place] [phone] (Wo rk) documented as of this encounter Visit Diagnoses Not on filedocumented in this encounter Care Teams Stoneworking Sander Relationship Specialty Start Date End Date Aydee Burton, PCP - General Nurse Practitioner - 05/17/21 ATHLETE MANAGER CHIEF COUNSEL Family [address] [place] [address] [phone] Aydee Burton, Assigned PCP 04/28/21 ATHLETE MANAGER CHIEF COUNSEL [address] [place], [place] [phone] documented as of this encounter
--- OUTSIDE RECORDS SUMMARY | 2022-10-21 09:07 | XMS_ITS | Encounter Summary ---
:1980 Author Organization [place] Address [address] [place] [address] Care Team Providers Name Role Phone Aydee Burton APRN, CNP Primary Care Provider [phone] Aydee Burton APRN GLASS CUTTER HAND Unavailable [phone] Reason for Referral Rehab Therapy Physical Therapy (Routine) - Closed Specialty Diagnoses / Procedures Referred By Contact Refer red To Contact Diagnoses Neck pain Aydee Burton APRN [address] [phone] Referral ID Status Reason Start Date Expiration Date Visits Requ ested Visits Authorized [id number] Closed 05/21/2021 05/21/2022 1 1 Reason for Visit Reason Onset Date Comments Patient Request 05/21/2021 Encounter Details Date Type Department Care Team Description 05/21/2021 Telephone [facility] Aydee Burton, Patient Request [place] ELADIO GLASS CUTTER HAND [address] [place] [address] [place], [place] [phone] (Wo rk) [address] [phone] Social History Tobacco Use Types Packs/Day Years [...] How often do you attend confucianism or jain services? Never 08/05/2021 Do you [...] at Date Recorded Female 11/09/2021 7:53 PM PATCHER COVID-19 Exposure Response Date Recorded In the [...] set up for 06/11. Abril Castaneda RN [facility] Telephone Encounter - Aydee Burton APRN CNP - 05/21/2021 1:24 PM CDT Images from the original note were not included. I think its reasonable to start PT. Will send referral for PT. They should be calling her. If you have not heard from the scheduling office within 2 business days, please call [phone] for all locations, There is a OTC [...] ultrasound and recommendations. Also copied to her [employer] account Pt verbalizes understanding. Pt was asking [...] 10/21/2022 Office Visit Pulmonology HollyObdulio moyer MD [address] [place] [address] (Wo rk) 10/25/2022 PRE VISIT ENT Charo Burton MD Previsit [address] [place] [address] [phone] (Wo rk) 10/25/2022 Office Visit ENT Charo Burton MD [address] [place] [address] 979605 (Wo rk) 10/25/2022 Office Visit ENT Provider, Ent Dysphonia Automation Manager 10/25/2022 Virtual Visit Pain & [place]iative [place] [address] [place], [place] [address] 10/28/2022 Appointment Speech Therapy Anabel Chew, LACE AND TEXTILES RESTORER [address] [phone] (Wo rk) 11/17/2022 Appointment Speech Therapy Anabel Chew, LACE AND TEXTILES RESTORER [address] [phone] (Wo rk) 12/01/2022 Office Visit Pain & [place] [address] [place], [place] [address] (Wo rk) 12/23/2022 Office Visit Neurology Colby Yeung MD [address] [place] 59[address] (Wo rk) Scheduled Referrals Name Type Priority Associated Diagnoses Order S chedule PHYSICAL THERAPY Referral Routine Neck pain Expected: 0 05/21/2021, REFERRAL Expires: 2021 documented as of this encounter Visit Diagnoses Diagnosis Neck pain - Primary Cervicalgia documented in this encounter Care Teams Stone Gang Sawyer Relationship Specialty Start Date End Date Aydee Burton, PCP - General Nurse Practitioner - 05/17/21FebN GLASS CUTTER HAND [facility] [address] [place], [place] [address] Aydee Burton, Assigned PCP 04/28/21 DRUM LOADER AND UNLOADER GLASS CUTTER HAND [address] [place], [place] [address] documented as of this encounter
--- OUTSIDE RECORDS SUMMARY | 2022-10-21 09:07 | XMS_ITS | Encounter Summary ---
:1980 Author Organization [place] Address [address] [facility] [place] [address] Care Team Providers Name Role Phone Aydee Burton REAL ESTATE TRANSACTION COORDINATOR SPECIAL CRIMES INVESTIGATOR Primary Care Provider [phone] Aydee Burton REAL ESTATE TRANSACTION COORDINATOR SPECIAL CRIMES INVESTIGATOR Unavailable [phone] Louisa Hood REAL ESTATE TRANSACTION COORDINATOR SPECIAL CRIMES INVESTIGATOR Unavailable [phone] Se Levy CERTIFIED MEDICAL CODING SPECIALIST Unavailable Unavailable Anny Bernabe Unavailable Unavailable Clari Ruiz [facility] Unavailable [phone] Angel Hannah MD Unavailable Mago Swift [employer] Unavailable Encounter Details Date Type Department Care Team Description 12/14/2020 Medical Correspondence [facility] Scan, CLINIC REFERRAL Health Info Mgmt Non-Provider [facility] [place] [facility] [address] [place] [address] Social History Tobacco Use Types [...] How often do you attend yarsani or hinduism services? Never 08/05/2021 Do you [...] at Date Recorded Female 11/09/2021 7:53 PM CAMP RECREATION SPECIALIST COVID-19 Exposure Response Date Recorded In the last month, have you been in contact with No / Unsure 07/07/2021 3:26 PM CDT someone who was confirmed or suspected to have Coronavirus / COVID-19? documented as of this encounter Plan of Treatment Upcoming Encounters Date Type Specialty Care Team Description 10/21/2022 Office Visit Pulmonology Obdulio Barrera MD [address] [place] [address] (Wo rk) 10/25/2022 PRE VISIT ENT Charo Burton MD Previsit [address] [place] [address] (Estefanía rk) 10/25/2022 Office Visit Charo Carter MD [address] [place] [address] (Estefanía casanova) 10/25/2022 Office Visit ENT Provider, Ent Dysphonia Marketing Traffic Manager 10/25/2022 Virtual Visit Pain & [place]iative [place] [address] [place], [place] [address] 10/28/2022 Appointment Speech Therapy Anabel Chew, NATIONAL PARK TOUR GUIDE [address] [address] (Wo rk) 11/17/2022 Appointment Speech Therapy Anabel Chew, NATIONAL PARK TOUR GUIDE [address] [address] (Wo rk) 12/01/2022 Office Visit Pain & [place] [address] [place], [place] [address] (Wo rk) 12/23/2022 Office Visit Neurology Colby Yeung MD [address] [place] [address] (Wo rk) documented as of this encounter Visit Diagnoses Not on filedocumented in this encounter Care Teams Beef Grinder Relationship Specialty Start Date End Date Aydee Burton, PCP - General Nurse Practitioner - 05/17/21 REAL ESTATE TRANSACTION COORDINATOR SPECIAL CRIMES INVESTIGATOR Family [address] [place], [place] [address] Aydee Burton, Assigned PCP 04/28/21 REAL ESTATE TRANSACTION COORDINATOR SPECIAL CRIMES INVESTIGATOR [address] [place], [place] [address] Louisa Hood, Assigned Neuroscience 07/11/21 REAL ESTATE TRANSACTION COORDINATOR SPECIAL CRIMES INVESTIGATOR Provider [address] [place] [address] Se Levy, Lead Casino Operations Supervisor 08/05/21 05/12/22 [facility] 08/05/21 09/30/21 Worker Clari Ruiz Pharmacist Pharmacist 08/06/21 06/07/22 Jocelyn [facility] [address] [place] [address] [place], Assigned Sleep 08/01/21 Angel Turcios, Provider [address] [place] [address] Mago Swift, [facility] Lead Casino Operations Supervisor Educational Specialist - 08/05/21 Clinical documented as of this encounter
--- OUTSIDE RECORDS SUMMARY | 2022-10-21 09:07 | XMS_ITS | Encounter Summary ---
:1980 Author Organization [place] Address [address] [place] [address] Care Team Providers Name Role Phone Aydee Burton APRN, CNP Primary Care Provider [phone] Aydee Burton APRN FIXED ROUTE BUS OPERATOR Unavailable [phone] Encounter Details Date Type Department Care Team [...] How often do you attend yarsanism or orthodox services? Never 08/05/2021 Do you [...] at Date Recorded Female 11/09/2021 7:53 PM SOLUTIONS ARCHITECT COVID-19 Exposure Response Date Recorded In the last month, have you been in contact with No / Unsure 05/24/2021 8:25 PM CDT someone who was confirmed or suspected to have Coronavirus / COVID-19? documented as of this encounter Plan of Treatment Upcoming Encounters Date Type Specialty Care Team Description 10/21/2022 Office Visit Pulmonology Obdulio Barrera MD [address] [place] [address] [phone] (Wo rk) 10/25/2022 PRE VISIT ENT Charo Burton MD Previsit [address] [place] [address] [phone] (Wo rk) 10/25/2022 Office Visit Charo Carter MD [address] [place] [address] [phone] (Wo rk) 10/25/2022 Office Visit ENT Provider, Ent Dysphonia Logistics Analytics Manager 10/25/2022 Virtual Visit Pain & Palliative [place] [address] [place], [place] [address] 10/28/2022 Appointment Speech Therapy Anabel Chew, STITCH CLEANER [address] [phone] (Wo rk) 11/17/2022 Appointment Speech Therapy Anabel Chew SLP [address] 044385 (Wo rk) 12/01/2022 Office Visit Pain [place] [address] [place] Bry[address] Argueta [place] [address] (Wo rk) 12/23/2022 Office Visit Neurology Colby Yeung MD [address] [place] [phone] (Wo rk) documented as of this encounter Visit Diagnoses Not on filedocumented in this encounter Care Teams Fire Extinguisher Inspector Relationship Specialty Start Date End Date Aydee Burton, PCP - General Nurse Practitioner - 05/17/21 CYANIDE POT TENDER FIXED ROUTE BUS OPERATOR Family [address] [place] [address] [phone] Aydee Burton, Assigned PCP 04/28/21 CYANIDE POT TENDER FIXED ROUTE BUS OPERATOR [address] [place], [place] [phone] documented as of this encounter
--- OUTSIDE RECORDS SUMMARY | 2022-10-21 09:07 | XMS_ITS | Encounter Summary ---
:1980 Author Organization [facility] Address [address] [place] [address] Care Team Providers Name Role Phone Aydee Burton APRN [facility] Primary Care Provider Aydee Burton APRN INSURANCE FOLLOW UP SPECIALIST Unavailable [phone] Reason for Visit Diagnostic Imaging XR (Routine) - Closed Specialty Diagnoses / Procedures Referred By Contact Refer red To Contact Diagnoses Neck pain Aydee Burton APRN Procedures XR Cervical Spine 2/3 Views [facility] [address] [place] [address] Referral ID Status Reason Start Date Expiration Date Visits Requ ested Visits Authorized [id number] Closed 05/17/2021 05/17/2022 1 1 Encounter Details Date Type Department Care Team Description 05/17/2021 Ancillary Procedure [facility] Aydee [facility] [place] ELADIO Mendez [facility] [address] [facility] [address] [place] [address] [place], [place] [phone] (Wo rk) [phone] Social History Tobacco Use Types Packs/Day Years [...] How often do you attend bahai or orthodoxy services? 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 documented as of this encounter Miscellaneous Notes Result Encounter Note - Aydee Burton, ELADIO INSURANCE FOLLOW UP SPECIALIST - 05/17/2021 7:45 AM CDT Dear Marta, [...] physical therapy for your neck or an materials specialist if you would like just let me know. For additional lab test information, [email or web address] is an excellent reference. In addition, here is a list of due or overdue Health Maintenance reminders: Preventive Care Visit Never done ANNUAL REVIEW OF HM ORDERS Never done Discuss Advance Care Planning Never done Depression Action Plan Never done Depression Assessment Never done PAP Smear Never done Diptheria Tetanus Pertussis (DTAP/TDAP/TD) Vaccine(1 - Tdap) Never done Please call us at [phone] (or use [employer]) to address the above recommendations if needed. Thank you for choosing [facility]. It was an honor and a privilege to participate in your care. Brook regardsAydee FNP [facility] documented in this encounter Plan of Treatment Upcoming Encounters Date Type Specialty Care Team Description 10/21/2022 Office Visit Pulmonology Obdulio Barrera MD [address] [place] [phone] (Wo rk) 10/25/2022 PRE VISIT ENT Charo Burton MD Previsit [address] [place] [address] (Wo rk) 10/25/2022 Office Visit Charo Carter MD [address] [place], [place] [phone] (Wo rk) 10/25/2022 Office Visit ENT Provider, Ent Dysphonia Sound Effects Supervisor 10/25/2022 Virtual Visit Pain & Palliative Care [place] Deluna, PhD [address] [place], [place] [address] 10/28/2022 Appointment Speech Therapy Anabel Chew, ENVIRONMENTAL MARKETER [address] [phone] (Wo rk) 11/17/2022 Appointment Speech Therapy Anabel Chew ENVIRONMENTAL MARKETER [address] [id number] (Wo rk) 12/01/2022 Office Visit [place] [address] [facility] [place], [place] [address] (Wo rk) 12/23/2022 Office Visit Neurology Colby Yeung MD [address] [place] [phone] (Wo rk) documented as of this encounter [...] 9:24 AM CDT IMPRESSION: There is some huyj-kd-iqrakwxf cervical kyphosis centered on the C4-C5 level which could be positi onal or due to some muscle spasm. Posterior alignment is otherwise normal. Vertebral body heights are maintained. Soft tissues are unremar kable. ARON ALICEA MD SYSTEM ID: ??[id number] Narrative 05/17/2021 9:24 AM CDT CERVICAL SPINE THREE VIEWS ??05/17/2021 8:12 AM HISTORY: Neck pain. COMPARISON: None. Procedure Note Aron Alicea MD - 05/17/2021Form atting of this note might be different from the original. CERVICAL SPINE THREE VIEWS 05/17/2021 8:12 AM HISTORY: Neck pain. COMPARISON: None. IMPRESSION: There is some hgwk-sm-njwcap te cervical kyphosis centered on the C4-C5 level which could be positi onal or due to some muscle spasm. Posterior alignment is otherwise normal. Vertebral body heights are maintained. Soft tissues are unremar kable. ARON ALICEA MD SYSTEM ID: [id number] Aydee Burton RAMP FLIGHT ATTENDANT INSURANCE FOLLOW UP SPECIALIST IMG DIAGNOSTIC IMAGING O RDERABLES documented in this encounter Visit Diagnoses Diagnosis Neck pain Cervicalgia documented in this encounter Care Teams Research Professional Relationship Specialty Start Date End Date Aydee Burton, PCP - General Nurse Practitioner - 05/17/21 RAMP FLIGHT ATTENDANTValerio KOO [facility] [address] [place], [place] [phone] Aydee Burton, Assigned PCP 04/28/21 ELADIO KOO [address] [place] [address] [phone] documented as of this encounter
== END 2022-09-18 19:34 | disposition home or self-care (01) ==
PROVIDERS: Visit Provider Family Medicine
DX: S29.9XXA Unspecified injury of thorax, initial encounter (principal); V40.0XXA Car driver injured in collision with pedestrian or animal in nontraffic accident, initial encounter; Y92.410 Unspecified street and highway as the place of occurrence of the external cause
CPT/HCPCS: A0425; A0427

== ENCOUNTER 2022-09-21 02:50 | Emergency (ER) | payer OTHER, MEDICAID, SELFPAY ==
[2022-09-21 03:03] VITALS: BP 115/78; PULSE 105; RESP 18; TEMP 36.7; O2SAT 99; BMI 34.3
[2022-09-21] MEDS: predniSONE 10 MG TABLET 40 MG PO (03:39)
[2022-09-21 03:43] VITALS: BP 118/79; PULSE 98; RESP 18; TEMP 36.7; O2SAT 99
[2022-09-21 03:45] VITALS: BP 118/79; PULSE 98; RESP 18; TEMP 36.7
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
--- OUTSIDE RECORDS SUMMARY | 2022-09-21 03:56 | XMS_ITS | Encounter Summary ---
:1980 Author Organization [place] Address [address] [place] [address] Care Team Providers Name Role Phone Aydee Burton INTEGRITY ASSESSOR COMMUNITY RESOURCE OFFICER Primary Care Provider [phone] Aydee Burton APRN COMMUNITY RESOURCE OFFICER Unavailable [phone] Louisa Hood INTEGRITY ASSESSOR COMMUNITY RESOURCE OFFICER Unavailable [phone] Angel Hannah MD Unavailable Lesly Celaya MD Unavailable Tawana Patel MA Unavailable Unavailable Ramses Mcpherson MD Unavailable [phone] Obdulio Barrera MD Unavailable [phone] Obdulio Barrera MD Unavailable [phone] Lesvia Stanley Unavailable Marilia Deluna PhD Unavailable Niyah Decker [facility] Unavailable Lesvia Stanley Unavailable Delia Avila [facility] Unavailable [phone] Mago Swift [facility] Unavailable SimonaLeela [facility] Unavailable AvelinoNiyah gleason [facility] Unavailable Reason for Referral Diagnostic Imaging XR (Routine) - Pending Review Specialty Diagnoses / Procedures Referred By Contact Refer red To Contact Diagnoses Neck pain Jocelyn Thompson Procedures XR Cervical Spine 2/3 Views MD Rachel [address] [place], [place] [address] Referral ID Status Reason Start Date Expiration Date Visits V isits Requested Authorized [id number] Pending 09/15/2022 09/15/2023 1 1 Review Reason for Visit Reason Comments Urgent Care X2 Days facial pain left coty e, patient has a hx of occipital neurologia and takes medication for thi s however the meds is not helping with pain the last few days, having he adaches frontal, eye pain, neck pain left side worse, left ear painTak ing muscle relaxer's and ibuprofen Encounter Details Date Type Department Care Team Description 09/15/2022 Office Visit [facility] Jay, Left f acial pain (Primary Dx); Urgent Care [facility] eleanor Ramos, Paresthesias; [address] DAVE HERMAN MD Neck pain [place], [place] [address] [place] [phone] [place], [place] [phone] Social History Tobacco Use Types Packs/Day Years [...] er 08/05/2021 How often do you attend anabaptist or pentecostalism services? Never 08/05/2021 Do you belong to any clubs or organizations such as anabaptist N o 08/05/2021 groups, unions, fraternal or [...] place to sleep or slept in a correction (including now)? Sex Assigned at Date Recorded Female 11/09/2021 7:53 PM ENVELOPE STAMPING MACHINE OPERATOR COVID-19 Exposure Response Date Recorded In the last 10 days, have you been in contact with No / Unsu re 09/15/2022 11:46 AM CDT someone who was confirmed or suspected to have Coronavirus/COVID-19? documented as of this encounter Last Filed Vital Signs Vital Sign Reading Time Taken Comments Blood Pressure 106/72 09/15/2022 2:45 PM CDT Pulse 100 09/15/2022 2:45 PM CDT Temperature 36.8 ??C (98.2 ??F) 09/15/2022 2:45 PM CDT Respiratory Rate - - Oxygen Saturation 99% 09/15/2022 2:45 PM CDT Inhaled Oxygen Concentration - - Weight 93 kg (205 lb) 09/15/2022 2:45 PM CDT Height - - Body Mass Index 34.11 09/02/2022 2:28 PM CDT documented in this encounter Patient Instructions Patient InstructionsJocelyn Thompson MD - 09/15/2022 12:20 PM CDT Follow-up with your Neurology and pain management specialists, as discussed. Follow-up in the ER immediately if severe/worsening pain or other severe/emergent symptoms, as discussed. documented in this encounter Progress Notes Jocelyn Thompson MD - 09/15/2022 12:20 PM CDT Assessment & Plan Marta was seen today for urgent care. Diagnoses and all orders for this visit: Left facial pain. Chronic, with a known history of occipital neuralgia. Doubt cardiac etiology, given the stable vitals and benign EKG. - EKG 12-lead complete w/read - Clinics Paresthesias. The patient has chronic paresthesias involving her left hand (ulnar nerve distribution), likely secondary to her previous radial head fracture and ORIF. Doubt cardiac etiology, as noted above. - EKG 12-lead complete w/read - Clinics Neck pain. Neck pain is chronic, noted to be stable/unchanged. Patient is post fall last evening. C-Spine x-ray showed evidence of strain, but it was negative for fracture. - XR Cervical Spine 2/3 Views; Future Discussed risks and benefits of treatment strategies. -Patient declines further evaluation through an ER, as her pain is chronic/improving. -Discussed worsening/emergent symptoms that would warrant further evaluation through an ER. Patient Instructions ??? Follow-up with your Neurology and pain management specialists, as discussed. ??? Follow-up in the ER immediately if severe/worsening pain or other severe/emergent symptoms, as discussed. Return for Follow up, as noted in Patient Instructions. Jocelyn Thompson MD [facility] [place] Arturo Lozano is a 42 year old female who presents to clinic today for the following health issues: Chief Complaint Patient presents with ??? Urgent Care X2 Days facial pain left side, patient has a hx of occipital neurologia and takes medication for this however the meds is not helping with pain the last few days, having headaches frontal, eye pain, neck pain left side worse, left ear pain Taking muscle relaxer's and ibuprofen HPI - Facial Pain and Left Arm Numbness The patient is a 42-year-old female, with a known history of bilateral occipital neuralgia, cervicogenic headache, and ORIF of a left radial head fracture. Patient reports chronic pain involving her left face and neck, followed by Neurology and Pain Management. Pain involving her left face and neck worsened after Physical Therapy earlier this week. Patient states that her pain is typically intermittent, but her pain has been constant the past 3 days. Pain was 10/10 severity a few hours ago, at whichtime she was advised to go to the ER for evaluation. Pain is currently 6-7/10 severity after taking 2 doses of her muscle relaxer and Ibuprofen. Patient describes feeling anxious and irritated, with a mild sense of shortness of breath. Patient has had intermittent, similar shortness of breath in thepast. Patient incidentally states that she fell down approximately 5 stairs after she took her nighttime medications last night. Patient does not think that her chronic neck pain has worsened, but she reports paresthesias involving her left third through fifth fingers (resolved), which she has had intermittently since her left radial head fracture and subsequent ORIF. Patient denies closed head injury, loss of consciousness, severe headache, or syncope. She thinks that she simply slipped last evening, falling backwards onto her butt, elbows, and back. Treatments Tried: Patient current is taking Lyrica, which I am tolerating better than Gabapentin. Patient states that Gabapentin makes her tired. Patient has remained on Seroquel 100 mg (post recent conversation with [facility] pharmacy), as higher doses of Seroquel have caused sedation and weird dreams in the past. Patient was advised to call Neurology and the Pain Clinic earlier today (per chart review), based onher recent symptoms. Review of Systems Constitutional: Negative for chills and fever. Eyes: Negative for visual disturbance. Respiratory: Negative for cough. Cardiovascular: Negative for chest pain and peripheral edema. Denies risk for , post hysterectomy 12/2021. Objective BP 106/72 Pulse 100 Temp 98.2 ??F (36.8 ??C) (Tympanic) Wt 93 kg (205 lb) LMP 12/11/2021 (Exact Date) SpO2 99% BMI 34.11 kg/m?? Physical Exam GENERAL APPEARANCE: Awake, alert, and in no acute distress. PSYCHIATRIC: Appropriate, occasionally tearful affect. Smiles at times prior to discharge. HEENT: Sclera anicteric. No conjunctivitis. PERRLA. Extraocular movements are intact. Bilateral TM'sand canals are within normal limits. No obvious nasal congestion. No erythema, edema, or exudates ofthe oral mucosa or posterior pharynx. Mucous membranes moist. No trismus. NECK/SHOULDER: Full range of motion. No thyromegaly or mass. No lymphadenopathy. No midline tenderness, but there is mild tenderness to palpation noted involving the left cervical paraspinal muscles (extends to involve the left posterior shoulder), with evidence of muscle spasm. This reproduces her pain. 5/5 strength x4 rotator cuff muscles. HEART: Normal S1, S2. Regular rate and rhythm. No murmurs, rubs, or gallops. LUNGS: No respiratory distress. No wheezes, rales, or rhonchi. ABDOMEN: Not distended. EXTREMITIES: Full range of motion and 5/5 strength x4 extremities, including rotator cuff and semiconductor packages platemaker strength. The scar from the previous left elbow ORIF is well-healed. NEUROLOGIC: Gait within normal limits. No facial droop or acute neurologic deficits. Reflexes 2/5 and symmetric. Radian, median, and ulnar nerves intact. SKIN: No rash or diaphoresis. EKG: Sinus Rhythm, with ventricular rate [address]/T wave changes. No changes, as compared with the 06/14/2022 study. C-Spine X-ray: Reviewed by provider. Cervical strain noted, but no acute fractures seen. Final Radiology report was reviewed in [facility], which reads as follows: IMPRESSION: No fracture. Mild reversal of the normal cervical lordosis. Otherwise unremarkable vertebral heights and alignment. Normal disc spaces and facets for age. Normal extraspinal structures. URGENT CARE COURSE: -Limitations of Urgent Care evaluation were discussed. -An EKG and C-Spine X-ray were obtained and reviewed by provider. -Follow-up was discussed prior to patient discharge. documented in this encounter Plan of Treatment Upcoming Encounters Date Type Specialty Care Team Description 09/26/2022 Appointment Speech Therapy HollyObdulio moyer MD [address] [address] Anabel Chew, CELINE [address] [place] [address] 09/27/2022 Therapy Visit Physical Therapy Luisana Watkins, PT [address] [place] [address] 09/29/2022 Virtual Visit Pain & Palliative Marilia Deluna, Care PhD [address] [place], [place] [address] 09/30/2022 Office Visit Family Practice Aydee Burton, INTEGRITY ASSESSOR COMMUNITY RESOURCE OFFICER [address] [place], [place] [address] 10/03/2022 Therapy Visit Physical Therapy Una Reardon, PT [address] [place] [phone] 10/10/2022 Hospital Encounter Surgery Lesly Celaya MD [address] [place], [place] [phone] 10/10/2022 Office Visit Surgery Lesly Celaya MD [address] [place], [place] [phone] Ninoska Flowers PA-Ynes [address] [place] [address] 10/10/2022 Surgery Surgery Lesly Celaya, EXCISION, MASSES - MD back, abdomen, [address] right lower [facility] [place] [address] 10/11/2022 Virtual Visit Clari Su, [facility] [address] [phone] [place], [place] [phone] 10/14/2022 Appointment Speech Therapy Anabel Chew, ASSISTANT FRONT OFFICE MANAGER [address] [place] [address] 10/21/2022 Office Visit Pulmonology Obdulio Barrera MD 420 [facility] 276 [place] [address] 10/25/2022 PRE VISIT ENT Charo Burton MD Previsit [address] [place] [address] 10/25/2022 Office Visit ENT Charo Burton MD [address] [place] [address]99025 10/25/2022 Office Visit ENT Provider, 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 Ball Machine Operator 10/28/2022 Appointment Speech Therapy Anabel Chew SLP [address] [address] 11/17/2022 Appointment Speech Therapy Anabel Chew SLP [address] [address] 12/23/2022 Office Visit Neurology Colby Yeung MD [address] [place] [address] Scheduled Procedures Name Priority Associated Diagnoses Date/Time EXCISION, MASS, TORSO Lipoma of skin and subcuta neous 10/10/2022 7:30 AM ENVELOPE STAMPING MACHINE OPERATOR tissue documented as of this encounter Goals Goal Patient Goal Associated Recent Patient-Stated? Author Type Problems Progress Attend Speciality Care Plan Establish Care 50% No Randal rn, Appointments (08/29/2022 Mago Gleason, (PARAGLIDING INSTRUCTOR, 3:24 PM CDT) [facility] Psychiatry, Counseling, and the Sleep Clinic) Note: Formatting of this note is differe nt from the original. Barriers: Appointment availability. Strengths: Recognition of need, Care Mds Rn rdination involvement. Patient expressed understanding of goal: [...] Celaya MD [facility] [place] To address painful lumps in my abdomin [...] Mago Swift well-managed. self-managed 3:14 PM CDT) MARISA Gleason W Note: Formatting of this note might [...] on 08/29/2022 documented as of this encounter Procedures Procedure Name Priority Date/Time Associated Diagnosis Comme nts EKG 12-LEAD Routine 09/15/2022 4:16 PM Left facial p ain Results for this COMPLETE W/READ - CDT Paresthesias procedure are in CLINICS the results section. documented in this encounter Results XR Cervical Spine 2/3 Views (09/15/2022 4:54 [...] EXAM: XR CERVICAL SPINE 2/3 VIEWS LOCATION: [facility] DATE/TIME: 09/15/2022 4:54 PM INDICATION: Chronic neck pain, s p fall last evening. ??Rule out fracture. COMPARISON: None. TECHNIQUE: CR Cervical Spine. Procedure Note Obdulio Ahmadi MD - 09/15/2022Forma tting of this note might be different from the original. EXAM: XR CERVICAL SPINE 2/3 VIEWS LOCATION: [facility] DATE/TIME: 09/15/2022 4:54 PM INDICATION: Chronic neck [...] t available. Jocelyn Thompson MD ECG ORDERABLES documented in this encounter Visit Diagnoses Diagnosis Left facial pain - Primary Headache Paresthesias Disturbance of skin sensation Neck pain Cervicalgia Neck pain Cervicalgia Lipoma of skin and subcutaneous tissue Lipoma of other skin and subcutaneous ti ssue documented in this encounter Additional Health Concerns Problem Noted Date Establish Care 07/05/2022 Chronic Pain is not self-managed 07/05/2022 Assessment Noted Time PHQ-9 Depression Total Score: 17 09/02/2022 2:11 PM CD T documented as of this encounter Care Teams Transformer Maker Relationship Specialty Start Date End Date Aydee Burton, PCP - General Nurse Practitioner - 05/17/21 INTEGRITY ASSESSOR COMMUNITY RESOURCE OFFICER Family [address] [place], [place] [phone] Aydee Burton, Assigned PCP 04/28/21 INTEGRITY ASSESSOR COMMUNITY RESOURCE OFFICER [address] [place], [place] [phone] Louisa Hood, Assigned Neuroscience 07/11/21 INTEGRITY ASSESSOR COMMUNITY RESOURCE OFFICER Provider [address] [place], [place] [address] [place], Assigned Sleep 08/01/21 Angel Turcios, Provider [address] [place], [place] [phone] Lesly Celaya MD Assigned Surgical 09/05/21 [address] Provider [place], [place] [phone] Tawana Patel [facility] 09/30/21 Worker Ramses Mcpherson Assigned OBGYN 11/07/21 MD Onesimo Provider [address] [place] [place], [place] [address] Obdulio Barrera MD Critical Care 01/24/[address] [place] [address] [phone] Obdulio Barrera, Assigned Pulmonology 02/06/22 MD Provider [address] [phone] Lesvia Stanley, EP Cardiac Rehabilitation 03/03/22 03/03/23 [facility] Therapist [address] [address] Marilia Deluna, PhD Assigned Behavioral 02/20/22 [address] [facility] [place] [address] Niyah Decker, [facility] Pharmacist Pharmacist 03/07/22 420 [facility] 812 [place], [place] [address] Lesvia Stanley, EP Cardiac Rehabilitation 03/17/22 03/17/23 [facility] Therapist [address] [phone] Delia Avila, Pharmacist Pharmacist 06/07/22 [facility] [address] [place], [place] [phone] Mago Swift, [facility] Lead Lead Consultant Job Counselor - 08/05/21 Clinical Leela Jarvis [facility] Pharmacist 07/26/22 05/15/23 3[address] [facility] [address] [phone] Niyah Decker, [facility] Assigned MTM 08/10/22 420 [facility] 812 Pharmacist [place], [place] [phone] documented as of this encounter
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
--- OUTSIDE RECORDS SUMMARY | 2022-09-21 03:56 | XMS_ITS | Encounter Summary ---
:1980 Author Organization [facility] Address [address] [place] [address] Care Team Providers Name Role Phone Aydee Burton FUNDRAISING SALE REPRESENTATIVE SUPPLY CHAIN TECHNICIAN Primary Care Provider [phone] Aydee Burton APRN SUPPLY CHAIN TECHNICIAN Unavailable [phone] Louisa Hood FUNDRAISING SALE REPRESENTATIVE SUPPLY CHAIN TECHNICIAN Unavailable [phone] Angel Hannah MD Unavailable Lesly Celaya MD Unavailable Tawana Patel MA Unavailable Unavailable Ramses Mcpherson MD Unavailable [phone] Obdulio Barrera MD Unavailable [phone] Obdulio Barrera MD Unavailable [phone] Lesvia Stanley Unavailable Marilia Deluna PhD Unavailable Niyah Decker [facility] Unavailable Lesvia Stanley Unavailable Delia Avila [facility] Unavailable [phone] JamisonMago [facility] Unavailable Leela Jarvis [facility] Unavailable Niyah Decker [facility] Unavailable Encounter Details Date Type Department Care Team Description 09/15/2022 Travel Social History Tobacco Use Types Packs/Day [...] er 08/05/2021 How often do you attend taoism or christian services? Never 08/05/2021 Do you belong to any clubs or organizations such as taoism N o 08/05/2021 groups, unions, fraternal or [...] place to sleep or slept in a fdc (including now)? Sex Assigned at Date Recorded Female 11/09/2021 7:53 PM CREDIT CONTROL ASSISTANT COVID-19 Exposure Response Date Recorded In the last 10 days, have you been in contact with No / Unsu re 09/15/2022 11:46 AM CDT someone who was confirmed or suspected to have Coronavirus/COVID-19? documented as of this encounter Plan of Treatment Upcoming Encounters Date Type Specialty Care Team Description 09/26/2022 Appointment Speech Therapy Obdulio Barrera MD [address] [facility] [address] [place], [place] [address] Anabel Chew, TRAPEZE PERFORMER [facility] [address] [facility] [address] [place] [address] 09/27/2022 Therapy Visit Physical Therapy Luisana Watkins, PT [address] [place] [address] 09/29/2022 Virtual Visit Pain & Palliative Marilia Deluna, [facility] PhD [address] [place] [address] 09/30/2022 Office Visit Family Practice Aydee Burton, FUNDRAISING SALE REPRESENTATIVE SUPPLY CHAIN TECHNICIAN [address] [place] [phone] 10/03/2022 Therapy Visit Physical Therapy Una Reardon, PT [address] [place] [phone] 10/10/2022 Hospital Encounter Surgery Lesly Celaya MD [address] [place], [place] [address] 10/10/2022 Office Visit Surgery Lesly Celaya MD [address] [place], [place] [address] Ninoska Flowers PA-Ynes [address] [facility] 300 [place] [address] 10/10/2022 Surgery Surgery Lesly Celaya, EXCISION, MASSES - back, abdomen, [address] right lower [facility] extremity [place], [place] [phone] 10/11/2022 Virtual Visit Clari Su, [facility] [address] [place] [address] 10/14/2022 Appointment Speech Therapy Anabel Chew, TRAPEZE PERFORMER [address] [address] 10/21/2022 Office Visit Pulmonology Obdulio Barrera MD [address] [facility] [address] [place], [place] [address] 10/25/2022 PRE VISIT ENT Charo Burton MD Previsit [address] [place] [address] 10/25/2022 Office Visit ENT Charo Burton MD 9 [place], [place] [address] 10/25/2022 Office Visit ENT Provider, 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 Therapeutic Recreation Specialist 10/28/2022 Appointment Speech Therapy Anabel Chew, TRAPEZE PERFORMER [address] [address] 11/17/2022 Appointment Speech Therapy Anabel Chew SLP [address] [address]7565 12/23/2022 Office Visit Neurology Colby Yeung MD [address] [address] Scheduled Procedures Name Priority Associated Diagnoses Date/Time EXCISION, MASS, TORSO Lipoma of skin and subcuta neous 10/10/2022 7:30 AM CREDIT CONTROL ASSISTANT tissue documented as of this encounter Goals Goal Patient Goal Associated Recent Patient-Stated? Author Type Problems Progress Attend Speciality Care Plan Establish Care 50% Claudia Tee rn, Appointments (08/29/2022 Mago Murray, (DRAW FRAME RUNNER, 3:24 PM CDT) [facility] Psychiatry, Counseling, and the Sleep Clinic) Note: Formatting of this note is differe nt from the original. Barriers: Appointment availability. Strengths: Recognition of need, Care Jig Borer rdination involvement. Patient expressed understanding of goal: [...] on: 08/16/2022 9:45 AM Lesly Celaya MD [facility] [place] To address painful lumps in my abdomin [...] documented as of this encounter Care Teams Outbound Telemarketing Representative Relationship Specialty Start Date End Date Aydee Burton, PCP - General Nurse Practitioner - 05/17/21 FUNDRAISING SALE REPRESENTATIVE SUPPLY CHAIN TECHNICIAN Family [address] [place], [place] [phone] Aydee Burton, Assigned PCP 04/28/21 FUNDRAISING SALE REPRESENTATIVE SUPPLY CHAIN TECHNICIAN [address] [place] [address] Louisa Hood, Assigned Neuroscience 07/11/21 FUNDRAISING SALE REPRESENTATIVE SUPPLY CHAIN TECHNICIAN Provider [address] [place], [place] [phone] [place], Assigned Sleep 08/01/21 Angel Turcios, Provider [address] [place], [place] [phone] Lesly Celyaa MD Assigned Surgical 09/05/21 [address] Provider [place], [place] [phone] Tawana Patel MA [facility] 09/30/21 Worker Ramses Mcpherson Assigned OBGYN 11/07/21 MD Onesimo Provider [address] [place], [place] [phone] Obdulio Barrera MD Critical Care 01/24/22 [address] [facility] [address] [place], [place] [phone] Obdulio Barrera, Assigned Pulmonology 02/06/22 MD Provider [address] [facility] [address] [place], [place] [address] Lsevia Stanley, GHADA Cardiac Rehabilitation 03/03/22 03/03/23 [facility] Therapist [address] [place] [address] Marilia Deluna, PhD Assigned Behavioral 02/20/22 [address] [facility] Health Provider [place], [place] [address] Niyah Decker, [facility] Pharmacist Pharmacist 03/07/[address] [place] [address] 8[address] [place], [place] [address] Lesvia Stanley, GHADA Cardiac Rehabilitation 03/17/22 03/17/23 [facility] Therapist [address] [place] [address] Delia Avila, Pharmacist Pharmacist 06/07/22 [facility] [address] [place] [phone] Mago Swift, [facility] Lead Supervisor Alum Plant Machine Packager - 08/05/21 Clinical Leela Jarvis [facility] Pharmacist 07/26/22 05/15/[address] [facility] [address] [place], [place] [phone] Niyah Decker, [facility] Assigned MTM 08/10/22 420 [facility] 8[address] Pharmacist [place], [place] [address] documented as of this encounter
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
--- OUTSIDE RECORDS SUMMARY | 2022-09-21 03:56 | XMS_ITS | Encounter Summary ---
:1980 Author Organization [place] Address [address] [place] [address] Care Team Providers Name Role Phone Aydee Burton ORTHOTIST OR PROSTHETIST FOOD SERVICE TECHNICIAN Primary Care Provider Aydee Burton APRN FOOD SERVICE TECHNICIAN Unavailable [phone] Louisa Hood ORTHOTIST OR PROSTHETIST FOOD SERVICE TECHNICIAN Unavailable [phone] Angel Hannah MD Unavailable Lesly Celaya MD Unavailable Tawana Patel MA Unavailable Unavailable Ramses Mcpherson MD Unavailable [phone] Obdulio Barrera MD Unavailable [phone] Obdulio Barrera MD Unavailable Lesvia Stanley Unavailable Marilia Deluna PhD Unavailable Niyah Decker [facility] Unavailable Lesvia Stanley Unavailable Delia Avila [facility] Unavailable [phone] JamisonMago [facility] Unavailable Leela Jarvis [facility] Unavailable Niyah Decker [facility] Unavailable Reason for Visit Reason Onset Date Comments Symptoms 09/15/2022 Face and neck pain Encounter Details Date Type Department Care Team Description 09/15/2022 Telephone [facility] Pain Julio Ponce MD Symptoms (Face [facility] [address] neck pain) [address] [place] [employer] [place] [address] [address] [place] [address] [phone] Social History Tobacco Use Types Packs/Day Years [...] er 08/05/2021 How often do you attend evangelical or muslim services? Never 08/05/2021 Do you belong to any clubs or organizations such as evangelical N o 08/05/2021 groups, unions, fraternal or [...] place to sleep or slept in a long term (including now)? Sex Assigned at Date Recorded Female 11/09/2021 7:53 PM TILE SPRAYER COVID-19 Exposure Response Date Recorded In the last 10 days, have you been in contact with No / Unsu re 09/15/2022 11:46 AM CDT someone who was confirmed or suspected to have Coronavirus/COVID-19? documented as of this encounter Miscellaneous Notes Telephone Encounter - Rachel Conley RN - 09/15/2022 3:30 PM CDT Routing to provider as radha TRUJILLO to close if no further action needed Pt is at now waiting to be seen States face, neck and shoulder hurts to the touch - stronger and all the time Ususally take IBU, tylenol, aleve, robaxin. Heat is usual complementary therapy with stretching, this has not been effective. N/t in hand.arm. Intermittent but denies Unsure of weakness or CMS in extremity but is unsure as it is the arm with fx and awaiting OR for pin removal While on the phone with this selling underwriter pt was informed that she could be seen. Pt advised that d/t length of sx and her inability to manage pain at home with escalation of sx over last 24+ our office would advise that she continue care in UC as we cannot provide immediate resolution of this issue and likely would be able to. Pt agreeable to POC for UC visit and ended call to meet with staff. Rachel Russell RN Animal Impersonator [facility] Telephone Encounter - Oliver Alfredo - 09/15/2022 12:53 PM CDT [facility] Call Center Phone Message May a detailed message be left on voicemail: yes Reason for Call: Symptoms or Concerns If patient has red-flag symptoms, warm transfer to triage line Current symptom or concern: Face and Neck Pain Symptoms have been present for: 3 day(s) Has patient previously been seen for this? Yes By Dr. Ponce Are there any new or worsening symptoms? Yes: Pt is currently at ER and was told there is a 4 hour wait. She was advised to call the Pain clinic to see iof there was something can do. Please call Pt back at [phone] [facility] to advise. Action Taken: Message routed to: Other: [facility] Travel Screening: Not Applicable documented in this encounter Plan of Treatment Upcoming Encounters Date Type Specialty Care Team Description 09/26/2022 Appointment Speech Therapy Obdulio Barrera MD 420 [facility] 276 [place], [place] [address] Anabel Chew, GRINDER OPERATOR [address] [place], [place] [address] 09/27/2022 Therapy Visit Physical Therapy Luisana [place], PT [address] [place] [address] 09/29/2022 Virtual Visit Pain & Palliative Marilia Deluna, Care PhD [address] [place] [address] 09/30/2022 Office Visit Family Practice Aydee Burton, ORTHOTIST OR PROSTHETIST FOOD SERVICE TECHNICIAN [address] [place] [address] 10/03/2022 Therapy Visit Physical Therapy Una Reardon, PT [address] [place] [address] 10/10/2022 Hospital Encounter Surgery Lesly Celaya MD [address] [facility] [place] [place] [address] 10/10/2022 Office Visit Surgery Lesly Celaya MD [address] [place], [place] [phone] Ninoska Flowers PA-C [address] [place] [address] 10/10/2022 Surgery Surgery Lesly Celaya, EXCISION, MASSES - MD back, abdomen, [address] [place] [address] 10/11/2022 Virtual Visit Clari Su, [facility] [address] [id number] [place] [address] 10/14/2022 Appointment Speech Therapy Anabel Chew, GRINDER OPERATOR [address] [address] 10/21/2022 Office Visit Pulmonology Obdulio Barrera MD [address] [phone] 10/25/2022 PRE VISIT ENT Charo Burton MD Previsit [address] [place] [address] 10/25/2022 Office Visit ENT Charo Burton MD [address] [place] [address] 10/25/2022 Office Visit ENT Provider, 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 Fleet Service Clerk 10/28/2022 Appointment Speech Therapy Anabel Chew, GRINDER OPERATOR [address] 6[address] 11/17/2022 Appointment Speech Therapy Anabel Chew, GRINDER OPERATOR [address] [address] 12/23/2022 Office Visit Neurology Colby Yeung MD [address] [place], [place] [address] Scheduled Procedures Name Priority Associated Diagnoses Date/Time EXCISION, MASS, TORSO Lipoma of skin and subcuta neous 10/10/2022 7:30 AM TILE SPRAYER tissue documented as of this encounter Goals Goal Patient Goal Associated Recent Patient-Stated? Author Type Problems Progress Attend Speciality Care Plan Establish Care 50% Claudia Tee rn, Appointments (08/29/2022 Mago [place], (PROMOTIONS EXECUTIVE PRODUCER, 3:24 PM CDT) [facility] Psychiatry, Counseling, and the Sleep Clinic) Note: Formatting of this note is differe nt from the original. Barriers: Appointment availability. Strengths: Recognition of need, Care Out Of Town Collection Clerk rdination involvement. Patient expressed understanding of goal: [...] on: 08/16/2022 9:45 AM Lesly Celaya MD [facility] Surgery Clinic [place] To address painful lumps in my abdomin [...] documented as of this encounter Care Teams Media Theorist And Author Of Relationship Specialty Start Date End Date Aydee Burton, PCP - General Nurse Practitioner - 05/17/21 ORTHOTIST OR PROSTHETIST FOOD SERVICE TECHNICIAN Family [address] [place], [place] [address] Aydee Burton, Assigned PCP 04/28/21 ORTHOTIST OR PROSTHETIST FOOD SERVICE TECHNICIAN [address] [place] [address] Louisa Hood, Assigned Neuroscience 07/11/21 ORTHOTIST OR PROSTHETIST FOOD SERVICE TECHNICIAN Provider [address] [place], [place] [address] [place], Assigned Sleep 08/01/21 Angel Turcios, Provider [address] [place], [place] [phone] Lesly Celaya MD Assigned Surgical 09/05/21 [address] Provider [place], [place] [phone] Tawana Patel MA [facility] 09/30/21 Worker Ramses Mcpherson Assigned OBGYN 11/07/21 MD Onesimo Provider [address] [place], [place] [phone] Obdulio Barrera MD Critical Care 01/24/22 MD 420 [facility] 276 [place], [place] [address] Obdulio Barrera, Assigned Pulmonology 02/06/22 MD Provider 420 [facility] 276 [place], [place] [address] Lesvia Stanley, GHADA Cardiac Rehabilitation 03/03/22 03/03/23 [facility] Therapist [address] [place] [address] Marilia Deluna, PhD Assigned Behavioral 02/20/22 [address] [facility] [place] [address] Niyah Decker, [facility] Pharmacist Pharmacist 03/07/22 420 [facility] 812 [place], [place] [address] Lesvia Stanley, GHADA Cardiac Rehabilitation 03/17/22 03/17/23 [facility] Therapist [address] [id number] Delia Avila, Pharmacist Pharmacist 06/07/22 [facility] [address] [place], [place] [address] Mago Swift, [facility] Lead Animal Impersonator Maintenance And Custodian Supervisor - 08/05/21 Clinical Leela Jarvis, [facility] Pharmacist 07/26/22 05/15/23 [facility]5 [facility] [place] [phone] Niyah Decker, [facility] Assigned MTM 08/10/[address] [place] [address] 812 Pharmacist [place] [phone] documented as of this encounter
--- OUTSIDE RECORDS SUMMARY | 2022-09-21 03:56 | XMS_ITS | Encounter Summary ---
:1980 Author Organization [place] Address [address] [place] [address] Care Team Providers Name Role Phone Aydee Burton CARBURETOR REBUILDER CAREER COUNSELOR Primary Care Provider [phone] Aydee Burton APRN CAREER COUNSELOR Unavailable [phone] Louisa Hood CARBURETOR REBUILDER CAREER COUNSELOR Unavailable [phone] Angel Hannah MD Unavailable Lesly Celaya MD Unavailable Tawana Patel MA Unavailable Unavailable Ramses Mcpherson MD Unavailable [phone] Obdulio Barrera MD Unavailable [phone] Obdulio Barrera MD Unavailable [phone] Lesvia Stanley Unavailable Marilia Deluna PhD Unavailable Niyah Decker [facility] Unavailable Lesvia Stanley Unavailable Delia Avila [facility] Unavailable [phone] JamisonWinstone Terri [facility] Unavailable Leela Jarvis [facility] Unavailable Niyah Decker [facility] Unavailable Reason for Visit Reason Comments Other Entered automatically based on patient selection in [place]. Encounter Details Date Type Department Care Team Description 09/15/2022 E-Visit M [facility] Aydee Burton Other (Ent ered Clinic [facility], CARBURETOR REBUILDER CAREER COUNSELOR automatically based on 4151 [facility] [address] [place] [address] [place] [address] [place], [place] [phone] (Wo rk) [address] [phone] Social History Tobacco Use Types Packs/Day Years [...] How often do you attend taoism or pentecostal services? Never 08/05/2021 Do you belong to [...] place to sleep or slept in a longterm (including now)? Sex Assigned at Date Recorded Female 11/09/2021 7:53 PM FIRST SAMPLER COVID-19 Exposure Response Date Recorded In the last 10 days, have you been in contact with No / Unsu re 09/15/2022 11:46 AM CDT someone who was confirmed or suspected to have Coronavirus/COVID-19? documented as of this encounter Patient Instructions Patient InstructionsLaAydee kent APRN CNP - 09/15/2022 12:10 PM CDT Images from the original note were not included. Marta, Thank you for choosing us for your care. I am not in clinic today and I have no openings tomorrow. Anything that is described as severe and with your recent fall you need higher level care than the clinic can provide. Based on the information provided, I believe you need to be seen immediately. Please go the emergency department as soon as possible with a ride or call 911 if appropriate because you may need imaging. You will not be charged for this eVisit. MARINO Spivey documented in this encounter Miscellaneous Notes Telephone Encounter - Aydee Burton APRN CNP - 09/15/2022 1:59 PM CDT Images from the original note were not included. Provider E-Visit time total (minutes): Red flag symptoms ED recommended. MARINO Spivey documented in this encounter Plan of Treatment Upcoming Encounters Date Type Specialty Care Team Description 09/26/2022 Appointment Speech Therapy Obdulio Barrera MD 420 [facility] 276 [place], [place] [address] Anabel Chew, ASSEMBLER CARDS AND ANNOUNCEMENTS [facility] 516 [facility] 396 [place], [place] [address] 09/27/2022 Therapy Visit Physical Therapy Luisana Watkins, PT [address] [place] [address] 09/29/2022 Virtual Visit Pain & Palliative Marilia Deluna, [facility] PhD [address] [place], [place] [address] 09/30/2022 Office Visit Family Practice Aydee Burton, CARBURETOR REBUILDER CAREER COUNSELOR [address] [place], [place] [phone] 10/03/2022 Therapy Visit Physical Therapy Una Reardon, PT [address] [place] [address] 10/10/2022 Hospital Encounter Surgery Lesly Celaya MD [address] [place] [address] 10/10/2022 Office Visit Surgery Lesly Celaya MD [address] [place] [address] Ninoska Flowers, FLORES-Ynes [address] [place] [address] 10/10/2022 Surgery Surgery Lesly Celaya, EXCISION, MASSES - MD back, abdomen, [address] [place] [address] 10/11/2022 Virtual Visit Clari Su, [facility] [address] [id number] [place] [address] 10/14/2022 Appointment Speech Therapy Anabel Chew, ASSEMBLER CARDS AND ANNOUNCEMENTS [facility] 516 [facility] 396 [place] [address] 10/21/2022 Office Visit Pulmonology Obdulio Barrera MD 420 [facility] 276 [place] [address] 10/25/2022 PRE VISIT ENT Charo Burton MD Previsit [address] [place], [place] [address] 10/25/2022 Office Visit ENT Charo Burton MD [address] [place], [place] [address] 10/25/2022 Office Visit ENT Provider, Jeannette 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 Remote Control Assembler 10/28/2022 Appointment Speech Therapy Anabel Chew, ASSEMBLER CARDS AND ANNOUNCEMENTS [address] [place] [address] 11/17/2022 Appointment Speech Therapy Anabel Chew, ASSEMBLER CARDS AND ANNOUNCEMENTS [address] [place] [address] 12/23/2022 Office Visit Neurology Colby Yeung MD [address] [place] [place] [address] Scheduled Procedures Name Priority Associated Diagnoses Date/Time EXCISION, MASS, TORSO Lipoma of skin and subcuta neous 10/10/2022 7:30 AM FIRST SAMPLER tissue documented as of this encounter Goals Goal Patient Goal Associated Recent Patient-Stated? Author Type Problems Progress Attend Speciality Care Plan Establish Care 50% Claudia Tee rn, Appointments (08/29/2022 Mago [place], (BANQUET ATTENDANT, 3:24 PM CDT) [facility] Psychiatry, Counseling, and the Sleep Clinic) Note: Formatting of this note is differe nt from the original. Barriers: Appointment availability. Strengths: Recognition of need, Care Oncology Consultant rdination involvement. Patient expressed understanding of goal: Yes Action steps to achieve this goal: 1. I will attend necessary OBGYN appoint ments (completed) 2. I will have a sleep study done (compl eted) 3. I understand the [facility] will request a serena lee dentist referral from PCP (completed) 4. I will schedule sleep dentist appoint ment when referral placed 5.I will continue going to psychiatry ap pointments for counseling and medication adjustments, in progress/ongoing. 6. I will attend my appointment on: 08/16/2022 9:45 AM Lesly Celaya MD [facility] [place] To address painful lumps in my abdomin [...] Swift well-managed. self-managed 3:14 PM CDT) M, LICS W Note: Formatting of this note might [...] as of this encounter Visit Diagnoses Diagnosis Fall, initial encounter - Primary Lipoma of skin and subcutaneous tissue Lipoma of other skin and subcutaneous ti ssue documented in this encounter Additional Health Concerns Problem Noted Date Establish Care 07/05/2022 Chronic Pain is not self-managed 07/05/2022 Assessment Noted Time PHQ-9 Depression Total Score: 17 09/02/2022 2:11 PM CD T documented as of this encounter Care Teams President And Chief Operating Officer Relationship Specialty Start Date End Date Aydee Burton, PCP - General Nurse Practitioner - 05/17/21 CARBURETOR REBUILDER CAREER COUNSELOR Family [address] [place], [place] [phone] Aydee Burton, Assigned PCP 04/28/21 CARBURETOR REBUILDER CAREER COUNSELOR [address] [place], [place] [phone] Louisa Hood, Assigned Neuroscience 07/11/21 CARBURETOR REBUILDER CAREER COUNSELOR Provider [address] [place], [place] [phone] [place], Assigned Sleep 08/01/21 Angel Turcios, Provider [address] [place], [place] [address] Lesly Celaya MD Assigned Surgical 09/05/21 [address] Provider [place], [place] [phone] Tawana Patel [facility] 09/30/21 Worker Ramses Mcpherson Assigned OBGYN 11/07/21 MD Onesimo Provider [address] [place], [place] [phone] Obdulio Barrera MD Critical Care 01/24/[address] [place] [address] Obdulio Barrera, Assigned Pulmonology 02/06/22 MD Provider [address] [address] Lesvia Stanley, EP Cardiac Rehabilitation 03/03/22 03/03/23 [facility] Therapist [address] [address] [address] Marilia Deluna, PhD Assigned Behavioral 02/20/22 [address] [facility] Health [place] [address] Niyah Decker, [facility] Pharmacist Pharmacist 03/07/22 420 [facility] 812 [place], [place] [address] Lesvia Stanlye, GHADA Cardiac Rehabilitation 03/17/22 03/17/23 [facility] Therapist [address] [address] [address] Delia Avila, Pharmacist Pharmacist 06/07/22 [facility] 909 [place], [place] [address] Mago Swift, [facility] Lead Apparel Trimmings Sales Representative Hand Compositor - 08/05/21 Clinical Leela Jarvis [facility] Pharmacist 07/26/22 05/15/23 3305 [facility] [place] [phone] Niyah Decker, [facility] Assigned MTM 08/10/22 420 [facility] 812 Pharmacist [place], [place] [address] documented as of this encounter
--- OUTSIDE RECORDS SUMMARY | 2022-09-21 03:56 | XMS_ITS | Encounter Summary ---
:1980 Author Organization [facility] Address [address] [place] [address] Care Team Providers Name Role Phone Aydee Burton PACKAGER AGRICULTURAL LENDER Primary Care Provider [phone] Aydee Burton APRN AGRICULTURAL LENDER Unavailable [phone] Louisa Hood PACKAGER AGRICULTURAL LENDER Unavailable [phone] Angel Hannah MD Unavailable Lesly Celaya MD Unavailable Tawana Patel MA Unavailable Unavailable Ramses Mcpherson MD Unavailable [phone] Obdulio Barrera MD Unavailable [phone] Obdulio Barrera MD Unavailable [phone] Lesvia Stanley Unavailable Marilia Deluna PhD Unavailable Niyah Decker [facility] Unavailable Lesvia Stanley Unavailable Delia Avila [facility] Unavailable [phone] JamisonMago [facility] Unavailable Leela Jarvis [facility] Unavailable Niyah Decker Vania [facility] Unavailable Reason for Visit Diagnostic Imaging XR (Routine) - Pending Review Specialty Diagnoses / Procedures Referred By Contact Refer red To Contact Diagnoses Neck pain Jocelyn Thompson Procedures XR Cervical Spine 2 Views MD Rachel [address] [place], [place] [address] Referral ID Status Reason Start Date Expiration Date Visits V isits Requested Authorized [id number] Pending 09/15/2022 09/15/2023 1 1 Review Encounter Details Date Type Department Care Team Description 09/15/2022 Ancillary Procedure [facility] Jay, Neck pain [facility] [place] Jocelyn Ramos, [address] [place], [place] [address] [place] [phone] [place], [place] [phone] (Wo rk) Social History Tobacco Use Types Packs/Day Years [...] er 08/05/2021 How often do you attend zoroastrianism or roman catholic services? Never 08/05/2021 Do you belong to any clubs or organizations such as zoroastrianism N o 08/05/2021 groups, unions, fraternal or [...] at Date Recorded Female 11/09/2021 7:53 PM WEBLOGIC ADMINISTRATOR COVID-19 Exposure Response Date Recorded In the last 10 days, have you been in contact with No / Unsu re 09/15/2022 11:46 AM CDT someone who was confirmed or suspected to have Coronavirus/COVID-19? documented as of this encounter Plan of Treatment Upcoming Encounters Date Type Specialty Care Team Description 09/26/2022 Appointment Speech Therapy Obdulio Barrera MD [address] [facility] [address] [place], [place] [address] Anabel Chew, REMOTE RECRUITER [address] [place], [place] [address] 09/27/2022 Therapy Visit Physical Therapy Luisana Watkins, PT [address] [place] [address] 09/29/2022 Virtual Visit Pain & Palliative Marilia Deluna, [facility] PhD [address] [place], [place] [address] 09/30/2022 Office Visit Family Practice Aydee Burton, PACKAGER AGRICULTURAL LENDER [address] [place] [address] 10/03/2022 Therapy Visit Physical Therapy Una Reardon, PT [address] [place] [phone] 10/10/2022 Hospital Encounter Surgery Lesly Celaya MD [address] [place], [place] [address] 10/10/2022 Office Visit Surgery Lesly Celaya MD [address] [place], [place] [address] Ninoska Flowers, PA-C [address] [place], [place] [phone] 10/10/2022 Surgery Surgery Lesly Celaya, EXCISION, MASSES - MD back, abdomen, [address] extremity [place], [place] [phone] 10/11/2022 Virtual Visit Pharm Bryce Ruiz, Clari Banks, [address] [address] 10/14/2022 Appointment Speech Therapy Anabel Chew, REMOTE RECRUITER [address] [address] 10/21/2022 Office Visit Pulmonology Obdulio Barrera MD [address] [place] [address] [address] [place], [place] [phone] 10/25/2022 PRE VISIT ENT Charo Burton MD Previsit [address] [place], [place] [phone] 10/25/2022 Office Visit Charo Carter MD [address] [place], [place] [phone] 10/25/2022 Office Visit ENT Provider, 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 Dispatch Coordinator 10/28/2022 Appointment Speech Therapy Anabel Chew, REMOTE RECRUITER [address] [place] [address] 11/17/2022 Appointment Speech Therapy Anabel Chew, REMOTE RECRUITER [address] [address] 12/23/2022 Office Visit Neurology Colby Yeung MD [address] [place] [address] Scheduled Procedures Name Priority Associated Diagnoses Date/Time EXCISION, MASS, TORSO Lipoma of skin and subcuta neous 10/10/2022 7:30 AM WEBLOGIC ADMINISTRATOR tissue documented as of this encounter Goals Goal Patient Goal Associated Recent Patient-Stated? Author Type Problems Progress Attend Speciality Care Plan Establish Care 50% No Randal rn, Appointments (08/29/2022 Mago Murray, (HIGHWAY ENGINEERING TECHNICIAN, 3:24 PM CDT) [facility] Psychiatry, Counseling, and the Sleep Clinic) Note: Formatting of this note is differe nt from the original. Barriers: Appointment availability. Strengths: Recognition of need, Care President Ceo & Founder rdination involvement. Patient expressed understanding of goal: [...] on: 08/16/2022 9:45 AM Lesly Celaya MD [facility] [place] To address painful lumps in my abdomin [...] [place] well-managed. self-managed 3:14 PM CDT) MARISA Murray W Note: Formatting of this note might [...] Name Priority Date/Time Associated Diagnosis Comme nts XR CERVICAL SPINE STAT 09/15/2022 4:54 PM Neck pain Resu lts for this 2/3 VIEWS CDT procedure are i n the results section. documented in this encounter [...] EXAM: XR CERVICAL SPINE 2/3 VIEWS LOCATION: [facility] DATE/TIME: 09/15/2022 4:54 PM INDICATION: Chronic neck pain, s p fall last evening. ??Rule out fracture. COMPARISON: None. TECHNIQUE: CR Cervical Spine. Procedure Note Obdulio Ahmadi MD - 09/15/2022Forma tting of this note might be different from the original. EXAM: XR CERVICAL SPINE 2/3 VIEWS LOCATION: [facility] DATE/TIME: 09/15/2022 4:54 PM INDICATION: Chronic neck pain, s p fall last evening. Rule out fracture. COMPARISON: None. TECHNIQUE: CR Cervical Spine. IMPRESSION: No fracture. Mild reversal o f the normal cervical lordosis. Otherwise unremarkable vertebral heights and alignment. Normal disc spaces and facets for age. Normal extraspinal structures. Jocelyn Thompson MD IMG DIAGNOSTIC IM AGING ORDERABLES documented in this encounter Visit Diagnoses Diagnosis Neck pain Cervicalgia Lipoma of skin and subcutaneous tissue Lipoma of other skin and subcutaneous ti ssue documented in this encounter Additional Health Concerns Problem Noted Date Establish Care 07/05/2022 Chronic Pain is not self-managed 07/05/2022 Assessment Noted Time PHQ-9 Depression Total Score: 17 09/02/2022 2:11 PM CD T documented as of this encounter Care Teams Spool Sander Relationship Specialty Start Date End Date Aydee Burton, PCP - General Nurse Practitioner - 05/17/21 PACKAGER AGRICULTURAL LENDER Family [address] [place], [place] [address] Aydee Burton, Assigned PCP 04/28/21 PACKAGER AGRICULTURAL LENDER [address] [place], [place] [address] Louisa Hood, Assigned Neuroscience 07/11/21 PACKAGER AGRICULTURAL LENDER Provider [address] [place], [place] [address] [place], Assigned Sleep 08/01/21 Angel Turcios, Provider [address] [facility] [address] [place], [place] [phone] Lesly Celaya MD Assigned Surgical 09/05/[address] Provider [place], [place] [phone] Tawana Patel MA [facility] Health 09/30/21 Worker Ramses Mcpherson Assigned OBGYN 11/07/21 MD Onesimo Provider [address] [place], [place] [phone] Obdulio Barrera MD Critical Care 01/24/22 MD [address] [facility] [address] [place], [place] [address] Obdulio Barrera, Assigned Pulmonology 02/06/22 MD Provider [address] [facility] [address] [place] [address] Lesvia Stanley, [facility] Cardiac Rehabilitation 03/03/22 03/03/23 [facility] HOSP Therapist [address] [place] [address] Marilia Deluna, PhD Assigned Behavioral 02/20/22 [address] [facility] [place] [address] Niyah Decker, [facility] Pharmacist Pharmacist 03/07/22 [address] [facility] [address] [place], [place] [address] Lesvia Stanley, [facility] Cardiac Rehabilitation 03/17/22 03/17/23 [facility] HOSP Therapist [address] [place] [id number] Delia Avila, Pharmacist Pharmacist 06/07/22 [facility] [address] [place], [place] [address] Mago Swift [facility] Lead House Worker Wellness Nurse Rn - 08/05/21 Clinical Leela Jarvis, [facility] Pharmacist 07/26/22 05/15/23 [address] [facility] [place] [phone] Niyah Decker, [facility] Assigned MT 08/10/[address] [place] [address] 812 Pharmacist [place] [phone] documented as of this encounter
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
--- OUTSIDE RECORDS SUMMARY | 2022-09-21 03:57 | XMS_ITS | Encounter Summary ---
:1980 Author Organization [place] Address [address] [place] [address] Care Team Providers Name Role Phone Aydee Burton MEDICAL CONSULTANT PATCHING MACHINE OPERATOR Primary Care Provider [phone] Aydee Burton APRN PATCHING MACHINE OPERATOR Unavailable [phone] Louisa Hood MEDICAL CONSULTANT PATCHING MACHINE OPERATOR Unavailable [phone] Angel Hannah MD Unavailable Lesly Celaya MD Unavailable Tawana Patel MA Unavailable Unavailable Ramess Mcpherson MD Unavailable [phone] Obdulio Barrera MD Unavailable [phone] Obdulio Barrera MD Unavailable [phone] Lesvia Stanley Unavailable Marilia Deluna PhD Unavailable Niyah Decker [facility] Unavailable Lesvia Stanley Unavailable Delia Avila [facility] Unavailable [phone] Mago Swift [facility] Unavailable Leela Jarvis [facility] Unavailable Niyah Decker Vania [facility] Unavailable Reason for Visit Rehab Therapy Physical Therapy (Routine: Next available opening) - Pending Review Specialty Diagnoses / Procedures Referred By Contact Refer red To Contact Diagnoses Tension headache Cervicogenic headache Cervicalgia Colby Yeung MD [address] [place] [address] Referral ID Status Reason Start Date Expiration Date Visits V isits Requested Authorized [id number] Pending 06/30/2022 06/30/2023 1 1 Review Encounter Details Date Type Department Care Team Description 09/13/2022 [facility] Una Murray, PT Dx[facility] [address] [address] [address] [place] [address] (Work) [phone] Social History Tobacco Use Types Packs/Day Years [...] How often do you attend episcopalian or anabaptism services? Never 08/05/2021 Do you belong to [...] at Date Recorded Female 11/09/2021 7:53 PM LEVEL VIAL INSPECTOR COVID-19 Exposure Response Date Recorded In the last 10 days, have you been in contact with No / Unsu re 09/12/2022 2:14 PM CDT someone who was confirmed or suspected to have Coronavirus/COVID-19? documented as of this encounter Plan of Treatment Upcoming Encounters Date Type Specialty Care Team Description 09/26/2022 Appointment Speech Therapy Obdulio Barrera MD 420 [facility] 276 [place], [place] [address] Anabel Chew, FOOD ASSEMBLER KITCHEN [address] [place], [place] [address] 09/27/2022 Therapy Visit Physical Therapy Luisana Watkins, PT 2155 [place] [address] 09/29/2022 Virtual Visit Pain & Palliative Marilia Deluna, Care PhD [address] [place] [address] 09/30/2022 Office Visit Family Practice Aydee Burton, MEDICAL CONSULTANT PATCHING MACHINE OPERATOR [address] [place] [address] [phone] 10/03/2022 Therapy Visit Physical Therapy Una Reardon, PT 2155 [place] [phone] 10/10/2022 Hospital Encounter Surgery Lesly Celaya MD [address] [place], [place] [address] 10/10/2022 Office Visit Surgery Lesly Celaya MD [address] [place], [place] [address] Ninoska Flowers PA-C [address] [place], [place] [address] 10/10/2022 Surgery Surgery Lesly Celaya, EXCISION, MASSES - MD back, abdomen, [address] extremity [place], [place] [phone] 10/11/2022 Virtual Visit Pharm Bryce Ruiz, Clari Banks, [address] [address] 10/14/2022 Appointment Speech Therapy Anabel Chew, FOOD ASSEMBLER KITCHEN [facility] 516 [facility] 396 [place], [place] [address] 10/21/2022 Office Visit Pulmonology Obdulio Barrera MD 420 [facility] 276 [place], [place] [address] 10/25/2022 PRE VISIT ENT Charo Burton MD Previsit [address] [place] [address] [phone] 10/25/2022 Office Visit Charo Carter MD [address] [place] [phone] 10/25/2022 Office Visit ENT Provider, 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 Flight Operation Coordinator 10/28/2022 Appointment Speech Therapy Anabel Chew SLP [address] [place] [address] 11/17/2022 Appointment Speech Therapy Anabel Chew SLP [address] [address] 12/23/2022 Office Visit Neurology Colby Yeung MD [address] [place] [address] Scheduled Procedures Name Priority Associated Diagnoses Date/Time EXCISION, MASS, TORSO Lipoma of skin and subcuta neous 10/10/2022 7:30 AM LEVEL VIAL INSPECTOR tissue documented as of this encounter Goals Goal Patient Goal Associated Recent Patient-Stated? Author Type Problems Progress Attend Speciality Care Plan Establish Care 50% No Randal rn, Appointments (08/29/2022 Mago Murray, (BOND TRADER, 3:24 PM CDT) [facility] Psychiatry, Counseling, and the Sleep Clinic) Note: Formatting of this note is differe nt from the original. Barriers: Appointment availability. Strengths: Recognition of need, Care Petroleum Engineer rdination involvement. Patient expressed understanding of goal: [...] on: 08/16/2022 9:45 AM Lesly Celaya MD [facility] Surgery [facility] To address painful lumps in my abdomin [...] Name Priority Date/Time Associated Diagnosis Comme nts MT MANUAL THERAPY, EA 15 Routine 09/14/2022 8:13 AM CDT Neck p ain MIN MT THERAPEUTIC Routine 09/14/2022 8:13 AM CDT Neck pain EXERCISES. EA 15 MIN documented in this encounter Visit Diagnoses Diagnosis Neck pain - Primary Cervicalgia Lipoma of skin and subcutaneous tissue Lipoma of other skin and subcutaneous ti ssue documented in this encounter Additional Health Concerns Problem Noted Date Establish Care 07/05/2022 Chronic Pain is not self-managed 07/05/2022 Assessment Noted Time PHQ-9 Depression Total Score: 17 09/02/2022 2:11 PM CD T documented as of this encounter Care Teams Digital Technician Relationship Specialty Start Date End Date Aydee Burton, PCP - General Nurse Practitioner - 05/17/21 MEDICAL CONSULTANT PATCHING MACHINE OPERATOR [facility] [address] [place] [address] Aydee Burton, Assigned PCP 04/28/21 MEDICAL CONSULTANT PATCHING MACHINE OPERATOR [address] [place], [place] [phone] Louisa Hood, Assigned Neuroscience 07/11/21 MEDICAL CONSULTANT PATCHING MACHINE OPERATOR Provider 500 [place], [place] [address] [place], Assigned Sleep 08/01/21 Angel Turcios, Provider [address] [place], [place] [address] Lesly Celaya MD Assigned Surgical 09/05/21 [address] [facility] Provider [place], [place] [address] Tawana Patel [facility] 09/30/21 Worker Ramses Mcpherson Assigned OBGYN 11/07/21 MD Onesimo Provider [address] [place], [place] [address] Obdulio Barrera MD Critical Care 01/24/[address] [place] [address] 276 [place] [address] Obdulio Barrera, Assigned Pulmonology 02/06/[address] [place] [address] 276 [place], [place] [address] Lesvia Stanley EP Cardiac Rehabilitation 03/03/22 03/03/23 [facility] HOSP Therapist [address] [place] [address] Marilia Deluna, PhD Assigned Behavioral 02/20/22 [address] [facility] Provider [place], [place] [address] Niyah Decker, [facility] Pharmacist Pharmacist 03/07/[address] [place] [address] 812 [place] [address] Lesvia Stanley EP Cardiac Rehabilitation 03/17/22 03/17/23 [facility] Therapist [address] [id number] Delia Avila, Pharmacist Pharmacist 06/07/22 [facility] 909 [place] [address] Mago Swift, [facility] Lead Pasteurizer Roustabout Head - 08/05/21 Clinical Leela Jarvis [facility] Pharmacist 07/26/22 05/15/23 [address] [facility] [address] [place] [id number] Niyah Decker, [facility] Assigned MTM 08/10/22 420 [facility] 812 [place] [address] documented as of this encounter
--- OUTSIDE RECORDS SUMMARY | 2022-09-21 03:57 | XMS_ITS | Encounter Summary ---
:1980 Author Organization [place] Address [address] [place] [address] Care Team Providers Name Role Phone Aydee Burton MECHANICAL ENGINEERING TECHNOLOGIST INLAYER Primary Care Provider Aydee Burton APRN INLAYER Unavailable [phone] Louisa Hood MECHANICAL ENGINEERING TECHNOLOGIST INLAYER Unavailable [phone] Angel Hannah MD Unavailable Lesly Celaya MD Unavailable Tawana Patel MA Unavailable Unavailable Ramses Mcpherson MD Unavailable [phone] Obdulio Barrera MD Unavailable [phone] Obdulio Barrera MD Unavailable [phone] Lesvia Stanley Unavailable Marilia Deluna PhD Unavailable Niyah Decker [facility] Unavailable Lesvia Stanley Unavailable Delia Avila [facility] Unavailable [phone] JamisonMago [facility] Unavailable Leela Jarvis [facility] Unavailable Niyah Decker [facility] Unavailable Encounter Details Date Type Department Care Team Description 08/26/2022 Travel Social History Tobacco Use Types Packs/Day [...] er 08/05/2021 How often do you attend protestant or lutheran services? Never 08/05/2021 Do you belong to any clubs or organizations such as protestant N o 08/05/2021 groups, unions, fraternal or [...] place to sleep or slept in a mcc (including now)? Sex Assigned at Date Recorded Female 11/09/2021 7:53 PM ARBORIST CLIMBER COVID-19 Exposure Response Date Recorded In the last 10 days, have you been in contact with No / Unsu re 08/26/2022 9:44 AM CDT someone who was confirmed or suspected to have Coronavirus/COVID-19? documented as of this encounter Plan of Treatment Upcoming Encounters Date Type Specialty Care Team Description 09/26/2022 Appointment Speech Therapy Obdulio Barrera MD 420 [facility] 276 [place], [place] [address] Anabel Chew, GROUND SERVICES INSTRUCTOR [facility] 516 [facility] 396 [place] [address] 09/27/2022 Therapy Visit Physical Therapy Luisana Watkins, PT 2155 [place] [address] 09/29/2022 Virtual Visit Pain & Palliative Marilia Deluna, [facility] PhD [address] [place] [address] 09/30/2022 Office Visit Family Practice Aydee Burton, MECHANICAL ENGINEERING TECHNOLOGIST INLAYER [address] [place] [address] [phone] 10/03/2022 Therapy Visit Physical Therapy Una Reardon, PT 2[address] [place] [phone] 10/10/2022 Hospital Encounter Surgery Lesly Celaya MD [address] [place], [place] [address] 10/10/2022 Office Visit Surgery Lesly Celaya MD [address] [place], [place] [address] Ninoska Flowers PA-Ynes [address] [facility] 300 [place] [address] 10/10/2022 Surgery Surgery Lesly Celaya, EXCISION, MASSES - back, abdomen, [address] right lower [facility] extremity [place], [place] [phone] 10/11/2022 Virtual Visit Clari Su, [facility] [address] [place] [address] 10/14/2022 Appointment Speech Therapy Anabel Chew, GROUND SERVICES INSTRUCTOR [address] [address] 10/21/2022 Office Visit Pulmonology Obdulio Barrera MD 420 [facility] 276 [place], [place] [address] 10/25/2022 PRE VISIT ENT Charo Burton MD Previsit [address] [place] [address] [phone] 10/25/2022 Office Visit ENT Charo Burton MD 9 [place], [place] [address] 10/25/2022 Office Visit ENT Provider, 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 Global Regulatory Affairs Manager 10/28/2022 Appointment Speech Therapy Anabel Chew, GROUND SERVICES INSTRUCTOR [address] 6135[address] 11/17/2022 Appointment Speech Therapy Anabel Chew SLP [address] 9[address]605 12/23/2022 Office Visit Neurology Colby Yeung MD [address] [address] Scheduled Procedures Name Priority Associated Diagnoses Date/Time EXCISION, MASS, TORSO Lipoma of skin and subcuta neous 10/10/2022 7:30 AM ARBORIST CLIMBER tissue documented as of this encounter Goals Goal Patient Goal Associated Recent Patient-Stated? Author Type Problems Progress Attend Speciality Care Plan Establish Care 50% Claudia Tee rn, Appointments (08/29/2022 Mago Murray, (CLINICAL OPERATIONS LEADER, 3:24 PM CDT) [facility] Psychiatry, Counseling, and the Sleep Clinic) Note: Formatting of this note is differe nt from the original. Barriers: Appointment availability. Strengths: Recognition of need, Care Pulp Mill Team Leader rdination involvement. Patient expressed understanding of goal: [...] on: 08/16/2022 9:45 AM Lesly Celaya MD [facility] [place] To address painful lumps in my abdomin [...] Assessment Noted Time PHQ-9 Depression Total Score: 16 06/24/2022 9:31 AM CD T documented as of this encounter Care Teams Structures Mechanic Relationship Specialty Start Date End Date Aydee Burton, PCP - General Nurse Practitioner - 05/17/21 MECHANICAL ENGINEERING TECHNOLOGIST INLAYER Family [address] [place], [place] [phone] Aydee Burton, Assigned PCP 04/28/21 MECHANICAL ENGINEERING TECHNOLOGIST INLAYER [address] [place] [address] Louisa Hood, Assigned Neuroscience 07/11/21 MECHANICAL ENGINEERING TECHNOLOGIST INLAYER Provider [address] [place], [place] [phone] [place], Assigned Sleep 08/01/21 Angel Turcios, Provider [address] [place], [place] [phone] Lesly Celaya MD Assigned Surgical 09/05/21 [address] Provider [place], [place] [phone] Tawana Patel MA [facility] 09/30/21 Worker Ramses Mcpherson Assigned OBGYN 11/07/21 MD Onesimo Provider [address] [place], [place] [phone] Obdulio Barrera MD Critical Care 01/24/22 420 [facility] 276 [place], [place] [phone] Obdulio Barrera, Assigned Pulmonology 02/06/22 MD Provider 420 [facility] 276 [place], [place] [address] Lesvia Stanley, GHADA Cardiac Rehabilitation 03/03/22 03/03/23 [facility] Therapist [address] [place] [address] Marilia Deluna, PhD Assigned Behavioral 02/20/22 [address] [facility] Provider [place], [place] [address] Niyah Decker, [facility] Pharmacist Pharmacist 03/07/[address] [place] [address] 812 [place], [place] [address] Lesvia Stanley, GHADA Cardiac Rehabilitation 03/17/22 03/17/23 [facility] Therapist [address] [place] [address] Delia Avila, Pharmacist Pharmacist 06/07/22 [facility] [address] [place] [address] Mago Swift, [facility] Lead Flatwork Assembler Cyber Forensic Specialist - 08/05/21 Clinical Leela Jarvis [facility] Pharmacist 07/26/22 05/15/23 [address] [facility] [address] [place], [place] [phone] Niyah Decker, [facility] Assigned MTM 08/10/22 420 [facility] 812 Pharmacist [place], [place] [address] documented as of this encounter
--- OUTSIDE RECORDS SUMMARY | 2022-09-21 03:57 | XMS_ITS | Encounter Summary ---
:1980 Author Organization [place] Address [address] [place] [address] Care Team Providers Name Role Phone Aydee Burton CHARGING MANIPULATOR METALLOGRAPHER Primary Care Provider [phone] Aydee Burton APRN METALLOGRAPHER Unavailable [phone] Louisa Hood CHARGING MANIPULATOR METALLOGRAPHER Unavailable [phone] Angel Hannah MD Unavailable Lesly Celaya MD Unavailable Tawana Patel MA Unavailable Unavailable Ramses Mcpherson MD Unavailable [phone] Obdulio Barrera MD Unavailable [phone] Obdulio Barrera MD Unavailable [phone] Lesvia Stanley Unavailable Marilia Deluna PhD Unavailable Niyah Decker [facility] Unavailable Lesvia Stanley Unavailable Delia Avila [facility] Unavailable [phone] JamisonMago [facility] Unavailable Leela Jarvis [facility] Unavailable Niyah Decker [facility] Unavailable Encounter Details Date Type Department Care Team Description 09/12/2022 Travel Social History Tobacco Use Types Packs/Day [...] er 08/05/2021 How often do you attend tenriism or gnosticism services? Never 08/05/2021 Do you belong to any clubs or organizations such as tenriism N o 08/05/2021 groups, unions, fraternal or [...] place to sleep or slept in a senior care (including now)? Sex Assigned at Date Recorded Female 11/09/2021 7:53 PM LOAN INTERVIEWER COVID-19 Exposure Response Date Recorded In the last 10 days, have you been in contact with No / Unsu re 09/12/2022 2:14 PM CDT someone who was confirmed or suspected to have Coronavirus/COVID-19? documented as of this encounter Plan of Treatment Upcoming Encounters Date Type Specialty Care Team Description 09/26/2022 Appointment Speech Therapy Obdulio Barrera MD 420 [facility] 276 [place], [place] [address] Anabel Chew, ADMINISTRATIVE SUPPORT ASSOC [facility] 516 [facility] 396 [place] [address] 09/27/2022 Therapy Visit Physical Therapy Luisana Watkins, PT 2[address] [place] [address] 09/29/2022 Virtual Visit Pain & Palliative Marilia Deluna, [facility] PhD [address] [place] [address] 09/30/2022 Office Visit Family Practice Aydee Burton, CHARGING MANIPULATOR METALLOGRAPHER [address] [place] [address] [phone] 10/03/2022 Therapy Visit Physical Therapy Una Reardon, PT 2155 [place] [phone] 10/10/2022 Hospital Encounter Surgery Lesly Celaya MD [address] [place], [place] [address] 10/10/2022 Office Visit Surgery Lesly Celaya MD [address] [place], [place] [address] Ninoska Flowers PA-Ynes [address] [facility] 300 [place] [address] 10/10/2022 Surgery Surgery Lesly Celaya, EXCISION, MASSES - back, abdomen, [address] right lower [facility] extremity [place], [place] [phone] 10/11/2022 Virtual Visit Clari Su, [facility] [address] [place] [address] 10/14/2022 Appointment Speech Therapy Anabel Chew, ADMINISTRATIVE SUPPORT ASSOC [address] [address] 10/21/2022 Office Visit Pulmonology Obdulio Barrera MD 420 [facility] 276 [place], [place] [address] 10/25/2022 PRE VISIT ENT Charo Burton MD Previsit [address] [place] [address] 10/25/2022 Office Visit ENT Charo Burton MD 9 [place], [place] [address] 10/25/2022 Office Visit ENT Provider, 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 Cigar Wrapper Tender Automatic 10/28/2022 Appointment Speech Therapy Anabel Chew, ADMINISTRATIVE SUPPORT ASSOC [address] [address] 11/17/2022 Appointment Speech Therapy Anabel Chew SLP [address] 651865 12/23/2022 Office Visit Neurology Colby Yeung MD [address] [address] Scheduled Procedures Name Priority Associated Diagnoses Date/Time EXCISION, MASS, TORSO Lipoma of skin and subcuta neous 10/10/2022 7:30 AM LOAN INTERVIEWER tissue documented as of this encounter Goals Goal Patient Goal Associated Recent Patient-Stated? Author Type Problems Progress Attend Speciality Care Plan Establish Care 50% Claudia Tee rn, Appointments (08/29/2022 Mago Murray, (PAYROLL SERVICES ANALYST, 3:24 PM CDT) [facility] Psychiatry, Counseling, and the Sleep Clinic) Note: Formatting of this note is differe nt from the original. Barriers: Appointment availability. Strengths: Recognition of need, Care Tool Engine Lathe Set Up Operator rdination involvement. Patient expressed understanding of [...] on: 08/16/2022 9:45 AM Lesly Celaya MD [facility] [place] To address painful lumps in my abdomin [...] documented as of this encounter Care Teams Aboriginal Liaison Officer Relationship Specialty Start Date End Date Aydee Burton, PCP - General Nurse Practitioner - 05/17/21 CHARGING MANIPULATOR METALLOGRAPHER Family [address] [place], [place] [phone] Aydee Burton, Assigned PCP 04/28/21 CHARGING MANIPULATOR METALLOGRAPHER 4[address] [place] [address] Louisa Hood, Assigned Neuroscience 07/11/21 CHARGING MANIPULATOR METALLOGRAPHER Provider 500 [place], [place] [phone] [place], Assigned Sleep 08/01/21 Angel Turcios, Provider [address] [place], [place] [phone] Lesly Celaya MD Assigned Surgical 09/05/21 [address] Provider [place], [place] [phone] Tawana Patel MA [facility] 09/30/21 Worker Ramses Mcpherson Assigned OBGYN 11/07/21 MD Onesimo Provider [address] [place], [place] [phone] Obdulio Barrera MD Critical Care 01/24/22 420 [facility] 276 [place], [place] [phone] Obdulio Barrera, Assigned Pulmonology 02/06/22 MD Provider 420 [facility] 276 [place], [place] [address] Lesvia Stanley, [facility] Cardiac Rehabilitation 03/03/22 03/03/23 [facility] Therapist [address] [place] [address] Marilia Deluna, PhD Assigned Behavioral 02/20/22 [address] [facility] Health Provider [place], [place] [address] Niyah Decker, [facility] Pharmacist Pharmacist 03/07/[address] [place] [address] 812 [place], [place] [address] Lesvia Stanley, GHADA Cardiac Rehabilitation 03/17/22 03/17/23 [facility] Therapist [address] [place] [address] Delia Avila, Pharmacist Pharmacist 06/07/22 [facility] [address] [place] [phone] Mago Swift, [facility] Lead Sfdc Architect Oxyacetylene Welder - 08/05/21 Clinical Leela Jarvis [facility] Pharmacist 07/26/22 05/15/23 [address] [facility] [address] [place], [place] [phone] Niyah Decker, [facility] Assigned MTM 08/10/22 420 [facility] 812 Pharmacist [place], [place] [address] documented as of this encounter
--- OUTSIDE RECORDS SUMMARY | 2022-09-21 03:57 | XMS_ITS | Encounter Summary ---
:1980 Author Organization [facility] Address [address] [place] [address] Care Team Providers Name Role Phone Aydee Burton MACHINE GUIDE BASE WINDER STOCKING INSPECTOR Primary Care Provider [phone] Aydee Burton APRN STOCKING INSPECTOR Unavailable [phone] Louisa Hood MACHINE GUIDE BASE WINDER STOCKING INSPECTOR Unavailable [phone] Angel Hannah MD Unavailable Lesly Celaya MD Unavailable Tawana Patel MA Unavailable Unavailable Ramses Mcpherson MD Unavailable [phone] Obdulio Barrera MD Unavailable [phone] Obdulio Barrera MD Unavailable Lesvia Stanley Unavailable Marilia Deluna PhD Unavailable Niyah Decker [facility] Unavailable Lesvia Stanley Unavailable Delia Avila [facility] Unavailable [phone] JamisonMago [facility] Unavailable Leela Jarvis [facility] Unavailable Niyah Decker [facility] Unavailable Encounter Details Date Type Department Care Team Description 09/02/2022 Travel Social History Tobacco Use Types Packs/Day [...] er 08/05/2021 How often do you attend yazdanism or episcopal services? Never 08/05/2021 Do you belong to any clubs or organizations such as yazdanism N o 08/05/2021 groups, unions, fraternal or [...] place to sleep or slept in a fci (including now)? Sex Assigned at Date Recorded Female 11/09/2021 7:53 PM IT SECURITY ADMINISTRATOR COVID-19 Exposure Response Date Recorded In the last 10 days, have you been in contact with No / Unsu re 09/02/2022 2:09 PM CDT someone who was confirmed or suspected to have Coronavirus/COVID-19? documented as of this encounter Plan of Treatment Upcoming Encounters Date Type Specialty Care Team Description 09/26/2022 Appointment Speech Therapy Obdulio Barrrea MD 420 [facility] 276 [place], [place] [address] Anabel Chew, POURED PIPE MAKER [facility] 516 [facility] 396 [place] [address] 09/27/2022 Therapy Visit Physical Therapy Luisana Watkins, PT [address] [place] [address] 09/29/2022 Virtual Visit Pain & Palliative Marilia Deluna, [facility] PhD [address] [place] [address] 09/30/2022 Office Visit Family Practice Aydee Burton, MACHINE GUIDE BASE WINDER STOCKING INSPECTOR [address] [place] [phone] 10/03/2022 Therapy Visit Physical Therapy Una Reardon, PT [address] [place] [phone] 10/10/2022 Hospital Encounter Surgery Lesly Celaya MD [address] [place], [place] [address] 10/10/2022 Office Visit Surgery Lesly Celaya MD [address] [place], [place] [address] Ninoska Flowers PA-Ynes [address] [facility] [address] [place] [address] 10/10/2022 Surgery Surgery Lesly Celaya, EXCISION, MASSES - back, abdomen, [address] right lower [facility] extremity [place], [place] [phone] 10/11/2022 Virtual Visit Clari Su, [facility] [address] [place] [address] [place] [address] 10/14/2022 Appointment Speech Therapy Anabel Chew, POURED PIPE MAKER [address] [address] 10/21/2022 Office Visit Pulmonology Obdulio Barrera MD 420 [facility] 276 [place], [place] [address] 10/25/2022 PRE VISIT ENT Charo Burton MD Previsit [address] [place] [id number] 10/25/2022 Office Visit ENT Charo Burton MD 9 [place], [place] [address] 10/25/2022 Office Visit ENT Provider, 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 Jigmaker 10/28/2022 Appointment Speech Therapy Anabel Chew, POURED PIPE MAKER [address] [address] 11/17/2022 Appointment Speech Therapy Anabel Chew SLP [address] [address] 12/23/2022 Office Visit Neurology Colby Yeung MD [address] [address] Scheduled Procedures Name Priority Associated Diagnoses Date/Time EXCISION, MASS, TORSO Lipoma of skin and subcuta neous 10/10/2022 7:30 AM IT SECURITY ADMINISTRATOR tissue documented as of this encounter Goals Goal Patient Goal Associated Recent Patient-Stated? Author Type Problems Progress Attend Speciality Care Plan Establish Care 50% Claudia Tee rn, Appointments (08/29/2022 Mago Murray, (PIG MACHINE SUPERVISOR, 3:24 PM CDT) [facility] Psychiatry, Counseling, and the Sleep Clinic) Note: Formatting of this note is differe nt from the original. Barriers: Appointment availability. Strengths: Recognition of need, Care Campground Caretaker rdination involvement. Patient expressed understanding of goal: [...] 08/16/2022 9:45 AM Lesly Celaya MD [facility] [place] To address painful lumps in my abdomin [...] documented as of this encounter Care Teams Knockdown Man Relationship Specialty Start Date End Date Aydee Burton, PCP - General Nurse Practitioner - 05/17/21 MACHINE GUIDE BASE WINDER STOCKING INSPECTOR Family [address] [place], [place] [phone] Aydee Burton, Assigned PCP 04/28/21 MACHINE GUIDE BASE WINDER STOCKING INSPECTOR [address] [place] [address] Louisa Hood, Assigned Neuroscience 07/11/21 MACHINE GUIDE BASE WINDER STOCKING INSPECTOR Provider [address] [place], [place] [phone] [place], Assigned Sleep 08/01/21 Angel Turcios, Provider [address] [place], [place] [phone] Lesly Celaya MD Assigned Surgical 09/05/21 [address] Provider [place], [place] [phone] Tawana Patel MA [facility] 09/30/21 Worker Ramses Mcpherson Assigned OBGYN 11/07/21 MD Onesimo Provider [address] [place], [place] [phone] Obdulio Barrera MD Critical Care 01/24/22 420 [facility] 276 [place], [place] [phone] Obdulio Barrera, Assigned Pulmonology 02/06/22 MD Provider 420 [facility] 276 [place], [place] [address] Lesvia Stanley, [facility] Cardiac Rehabilitation 03/03/22 03/03/23 [facility] Therapist [address] [place] [address] Marilia Deluna, PhD Assigned Behavioral 02/20/22 [address] [facility] Health Provider [place], [place] [address] Niyah Decker, [facility] Pharmacist Pharmacist 03/07/[address] [place] [address] [address] [place], [place] [address] Lesvia Stanley, [facility]ADA Cardiac Rehabilitation 03/17/22 03/17/23 [facility] Therapist [address] [place] [address] Delia Avila, Pharmacist Pharmacist 06/07/22 [facility] [address] [place] [phone] Mago Swift, [facility] Lead Cement Or Concrete Finishing Supervisor Faucets Assembler - 08/05/21 Clinical Leela Jarvis [facility] Pharmacist 07/26/22 05/15/23 [address] [facility] [address] [place], [place] [phone] Niyah Decker, [facility] Assigned MTM 08/10/22 420 [facility] 812 Pharmacist [place], [place] [address] documented as of this encounter
--- OUTSIDE RECORDS SUMMARY | 2022-09-21 03:57 | XMS_ITS | Encounter Summary ---
:1980 Author Organization [place] Address [address] [place] [address] Care Team Providers Name Role Phone Aydee Burton MOTORSPORTS TECHNICIAN NUCLEAR SPECTROSCOPIST Primary Care Provider [phone] Aydee Burton APRN NUCLEAR SPECTROSCOPIST Unavailable [phone] Louisa Hood MOTORSPORTS TECHNICIAN NUCLEAR SPECTROSCOPIST Unavailable [phone] Angel Hannah MD Unavailable Lesly Celaya MD Unavailable Tawana Patel MA Unavailable Unavailable Ramses Mcpherson MD Unavailable [phone] Obdulio Barrera MD Unavailable [phone] Obdulio Barrera MD Unavailable [phone] Lesvia Stanley Unavailable Marilia Deluna PhD Unavailable Niyah Decker [facility] Unavailable Lesvia Stanley Unavailable Delia Avila [facility] Unavailable [phone] JamisonWinstone Terri [facility] Unavailable Leela Jarvis [facility] Unavailable Niyah Decker [facility] Unavailable Reason for Visit Reason Comments Letter for School/Work Encounter Details Date Type Department Care Team Description 09/02/2022 Office Visit [facility] Aydee Burton Esophageal yeast infection (H) (Primary Dx); Clinic Avella ELADIO Mendez NUCLEAR SPECTROSCOPIST Laryngitis [address] [facility] [address] [place] [address] 5 5365 [phone] Social History Tobacco Use Types Packs/Day Years [...] er 08/05/2021 How often do you attend sabianist or jew services? 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 documented as of this encounter Last Filed Vital Signs Vital Sign Reading Time Taken Comments Blood Pressure 126/81 09/02/2022 2:28 PM CDT Pulse 90 09/02/2022 2:28 PM CDT Temperature 36.3 ??C (97.3 ??F) 09/02/2022 2:28 PM CDT Respiratory Rate - - Oxygen Saturation 97% 09/02/2022 2:28 PM CDT Inhaled Oxygen Concentration - - Weight 94.8 kg (209 lb) 09/02/2022 2:28 PM CDT Height 165.1 cm (5' 5) 09/02/2022 2:28 PM CDT Body Mass Index 34.78 09/02/2022 2:28 PM CDT documented in this encounter Plan of Treatment Upcoming Encounters Date Type Specialty Care Team Description 09/26/2022 Appointment Speech Therapy Obdulio Barrera MD 420 [facility] 276 [place] [address] Anabel Chew, VISCOSITY WORKER [facility] 516 [facility] 396 [place], [place] [address] 09/27/2022 Therapy Visit Physical Therapy Luisana Watkins, PT [address] [place] [address] 09/29/2022 Virtual Visit Pain & Palliative Marilia Deluna Care PhD [address] [place], [place] [address] 09/30/2022 Office Visit Family Practice Aydee Burton, MOTORSPORTS TECHNICIAN NUCLEAR SPECTROSCOPIST [address] [place] [address] 10/03/2022 Therapy Visit Physical Therapy Una Reardon, PT [address] [place] [address] 10/10/2022 Hospital Encounter Surgery Lesly Celaya MD [address] [place] [address] 10/10/2022 Office Visit Surgery Lesly Celaya MD [address] [place] [address] Ninoska Flowers PA-C [address] [place] [address] 10/10/2022 Surgery Surgery Lesly Celaya, EXCISION, MASSES - MD back, abdomen, [address] [place] [address] 10/11/2022 Virtual Visit Pharm Clari Stoll, [address] [phone] 10/14/2022 Appointment Speech Therapy Anabel Chew, VISCOSITY WORKER [facility] 516 [facility] 396 [place], [place] [address] 10/21/2022 Office Visit Pulmonology Obdulio Barrera MD 420 [facility] 276 [place] [address] 10/25/2022 PRE VISIT Charo Carter MD Previsit [address] [place], [place] [address] 10/25/2022 Office Visit Charo Carter MD [address] [place] [address] 10/25/2022 Office Visit ENT Provider, Jeannette 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 Bottle Label Inspector 10/28/2022 Appointment Speech Therapy Anabel Chew, CELINE [address] [address] 11/17/2022 Appointment Speech Therapy Anabel Chew SLP [address] [address] 12/23/2022 Office Visit Neurology Colby Yeung MD [address] [place], [place] [address] Scheduled Procedures Name Priority Associated Diagnoses Date/Time EXCISION, MASS, TORSO Lipoma of skin and subcuta neous 10/10/2022 7:30 AM FLIGHT ATTENDANT RAMP tissue documented as of this encounter Goals Goal Patient Goal Associated Recent Patient-Stated? Author Type Problems Progress Attend Speciality Care Plan Establish Care 50% No Randal rn, Appointments (08/29/2022 Mago Murray (FACETOR, 3:24 PM CDT) [facility] Psychiatry, Counseling, and the Sleep Clinic) Note: Formatting of this note is differe nt from the original. Barriers: Appointment availability. Strengths: Recognition of need, Care Casting Machine Operator Helper rdination involvement. Patient expressed understanding of [...] as of this encounter Visit Diagnoses Diagnosis Esophageal yeast infection (H) - Primary Candidiasis of the esophagus Laryngitis Acute laryngitis, without mention of obs truction Lipoma of skin and subcutaneous tissue Lipoma of other skin and subcutaneous ti ssue documented in this encounter Additional Health Concerns Problem Noted Date Establish Care 07/05/2022 Chronic Pain is not self-managed 07/05/2022 Assessment Noted Time PHQ-9 Depression Total Score: 17 09/02/2022 2:11 PM CD T documented as of this encounter Care Teams Sample Steamer Relationship Specialty Start Date End Date Aydee Burton, PCP - General Nurse Practitioner - 05/17/21 MOTORSPORTS TECHNICIAN [facility] Family [address] [place] [address] Aydee Burton, Assigned PCP 04/28/21 MOTORSPORTS TECHNICIAN NUCLEAR SPECTROSCOPIST [address] [place], [place] [address] Louisa Hood, Assigned Neuroscience 07/11/21 MOTORSPORTS TECHNICIAN NUCLEAR SPECTROSCOPIST Provider 500 [place], [place] [address] [place], Assigned Sleep 08/01/21 Angel Turcios, Provider [address] [facility] 106 [place], [place] [address] Lesly Celaya MD Assigned Surgical 09/05/21 [address] [facility] Provider [place], [place] [address] Tawana Patel [facility] 09/30/21 Worker Ramses Mcpherson Assigned OBGYN 11/07/21 MD Onesimo Provider [address] [place], [place] [address] Obdulio Barrera MD Critical Care 01/24/[address] [place] [phone] Obdulio Barrera, Assigned Pulmonology 02/06/[address] [place] [address] Lesvia Stanley, GHADA Cardiac Rehabilitation 03/03/22 03/03/23 [facility] Therapist [address] [place] [address] Marilia Deluna, PhD Assigned Behavioral 02/20/22 [address] [facility] Provider [place], [place] [phone] Niyah Decker, [facility] Pharmacist Pharmacist 03/07/22 420 [facility] 812 [place], [place] [address] Lesvia Stanley EP Cardiac Rehabilitation 03/17/22 03/17/23 [facility] Therapist [address] [place] [address] Delia Avila, Pharmacist Pharmacist 06/07/22 [facility] 9[address] [place], [place] [address] Mago Swift, [facility] Lead Recruiter Specialist Emergency Medical Dispatcher - 08/05/21 Clinical Leela Jarvis [facility] Pharmacist 07/26/22 05/15/23 [address] [facility] [place] [address] Niyah Decker, [facility] Assigned MTM 08/10/22 420 [facility] 812 Pharmacist [place], [place] [address] documented as of this encounter
--- OUTSIDE RECORDS SUMMARY | 2022-09-21 03:57 | XMS_ITS | Encounter Summary ---
:1980 Author Organization [place] Address [address] [place] [address] Care Team Providers Name Role Phone Aydee Burton ELECTRICAL ELECTRONICS ENGINEERS RADIOSONDE SPECIALIST Primary Care Provider [phone] Aydee Burton APRN RADIOSONDE SPECIALIST Unavailable [phone] Louisa Hood [employer] E[employer]RON[employer] ENGINEERS RADIOSONDE SPECIALIST Unavailable [phone] Angel Hannah MD Unavailable Lesly eClaya MD Unavailable Tawana Patel MA Unavailable Unavailable Ramses Mcpherson MD Unavailable [phone] Obdulio Barrera MD Unavailable [phone] Obdulio Barrera MD Unavailable [phone] Lesvia Stanley Unavailable Marilia Deluna PhD Unavailable Niyah Decker [facility] Unavailable Lesvia Stanley Unavailable Delia Avila [facility] Unavailable [phone] Jamison Mago Terri [facility] Unavailable Leela Jarvis [facility] Unavailable Niyah Decker [facility] Unavailable Reason for Visit Reason Comments Medication Therapy Management Encounter Details Date Type Department Care Team Description 09/14/2022 Virtual Visit [facility] Clari Ruiz Kelvin or depressive disorder, remission status unspecified, unspecified whether recurrent (Primary Dx); Mental [facility] Jocelyn [facility] SHAMEKA (generalized anxiety disorder); Addiction Services [address] [place] [address] PTSD (post-traumatic stress disorder); [address] [place] [address] F2 Bilateral occipital neuralgia; [place], [place] Pain F275 [address]A [facility] [id number] [place] [id number] Social History Tobacco Use Types Packs/Day Years [...] er 08/05/2021 How often do you attend restorationism or anabaptism services? Never 08/05/2021 Do you belong to any clubs or organizations such as restorationism N o 08/05/2021 groups, unions, fraternal or [...] place to sleep or slept in a fpc (including now)? Sex Assigned at Date Recorded Female 11/09/2021 7:53 PM BONE COOKING OPERATOR COVID-19 Exposure Response Date Recorded In the last 10 days, have you been in contact with No / Unsu re 09/15/2022 11:46 AM CDT someone who was confirmed or suspected to have Coronavirus/COVID-19? documented as of this encounter Patient Instructions Patient InstructionsClari Ruiz RPH - 09/14/2022 2:00 PM CDT Recommendations from today's MTM visit: 1. Send message to pain doctor about possibility of increasing dose of Lyrica to help better manage head/neck pain and reduce flares. You can try taking Lyrica with food to see if that helps with nausea/stomach pain, and if dose is increased make note of any changes to symptoms. 2. Consider taking 1.5 tablets of quetiapine 100mg for a total dose of 150mg at bedtime to see if this helps with sleep without causing excessive daytime sleepiness. Follow-up: Video visit scheduled for 10/11/22 at 1:00 PM to touch base on any medication changes andhave a more in-depth discussion about psychiatry medications and sleep. It was great speaking with you today. I value your experience and would be very thankful for your time in providing feedback in our clinic survey. In the next few days, you may receive an email or textmessage from [employer] with a link to a survey related to your ???clinical pharmacist. To schedule another MTM appointment, please call the clinic directly or you may call the MTM scheduling line at [phone] or toll-free at . My Clinical Pharmacist's contact information: Please feel free to contact me with any questions or concerns you have. Clari Ruiz, PharmD, BCPP Medication Therapy Management Pharmacist [facility] documented in this encounter Progress Notes Clari Ruiz RPH - 09/14/2022 2:00 PM CDT Medication Therapy Management (MTM) Encounter ASSESSMENT: Medication Adherence/Access: No issues identified. PTSD, Anxiety, Depression: Patient is having some increased anxiety and difficulty sleeping - current increase in psychosocial stressors are contributing. We discussed the the option to take 150mg quetiapine at night to see if she tolerates this dose and has improved sleep quality. Will discuss options for sleep medications further at follow-up visit (did not have time to review past med trials today). ?? Facial Neuralgia/Elbow Pain/Hand Stiffness/Neck and Shoulder Pain: Patient still having significant breakthroughs of neck/facial pain despite current medication regimen and physical therapy. She does see a pain doctor who prescribed her Lyrica 50mg TID. Patient will send message to provider about possibly increasing dose of Lyrica to help manage symptoms. Is having nausea and will try taking Lyrica with food to see if she notices any changes. Patient was also educated to monitor for changes to nausea symptoms if dose of Lyrica is increased by pain doctor. ?? PLAN: 1. Send message to pain doctor about possibility of increasing dose of Lyrica to help better manage head/neck pain and reduce flares. You can try taking Lyrica with food to see if that helps with nausea/stomach pain, and if dose is increased make note of any changes to symptoms. 2. Consider taking 1.5 tablets of quetiapine 100mg for a total dose of 150mg at bedtime to see if this helps with sleep without causing excessive daytime sleepiness. Follow-up: Video visit scheduled for 10/11/22 at 1:00 PM to touch base on any medication changes andhave a more in-depth discussion about psychiatry medications and sleep. SUBJECTIVE/OBJECTIVE: Marta Hill is a 42 year old female contacted via secure video for a follow-up visit. Today's visit is a follow-up MTM visit from a primary care MTM appointment with Niyah Decker in June 2022. Reason for visit: Evaluate current medication regimen and come up with plan to help reduce pain/anxiety symptoms. Allergies/ADRs: Reviewed in chart Past Medical History: Reviewed in chart Tobacco: She reports that she has never smoked. She has never used smokeless tobacco. Alcohol: not evaluated at today's appointment. Medication Adherence/Access: no issues reported PTSD, Anxiety, Depression: Current Medications: Duloxetine 120mg nightly Bupropion XL 300mg daily Lamotrigine 300mg nightly at bedtime Quetiapine 100mg nightly at bedtime (prescribed 200mg, but patient is only taking 100mg) Patient has been relatively stable on current medications with the exception of some increasing anxiety. The patient stated that anxiety and stress is related to current life circumstances (custody talavera with ex-). She also experiences some paranoia when her anxiety is high. She is attending weekly therapy sessions through [facility] and is being followed by an outside psychiatrist.The only recent medication change mentioned by the patient was reducing Quetiapine to 100mg nightly due to excessive daytime sleepiness when taking 200mg nightly. Today, the patient had some difficulty concentrating due to a pain flare and use of a muscle relaxant to manage pain symptoms. She asked about possible options for helping with sleep. Since switching to 100mg quetiapine every night she has seen an improvement in daytime energy levels but has caused issues with falling and staying asleep. Facial Neuralgia/Elbow Pain/Hand Stiffness/Neck and Shoulder Pain: Current Medications: Methocarbamol 500-750mg TID prn (1-2 times weekly) Lyrica 50mg TID (new - started 08/10/22 by pain provider) OTC ibuprofen/acetaminophen PRN breakthrough pain Patient has had chronic headaches with stiff neck and shoulders for many years, which progressed to facial pain that imaging suggested is not trigeminal neuralgia. Is being followed by a neurologist and pain doctor. She is also attending weekly physical therapy sessions. PT appointments usually help manage facial/neck pain for a few days before symptoms return. The patient's pain doctor switched her from gabapentin to Lyrica 50mg TID. Since this switch, the patient has not had ongoing difficulty with daytime fatigue and felt that Lyrica was doing a better job of managing pain compared to gabapentin. She is also prescribed methocarbamol prn which she takes 1-2 a week but tries to avoid taking whenever possible due to it causing excessive fatigue. She also takes ibuprofen/acetaminophen OTC as needed for pain but tries to avoid it whenever possible. Today, the patient reports extreme pain after they tried a new exercise at her PT appointment yesterday. She has taken ibuprofen, acetaminophen, and methocarbamol without relief. She also reports nausea and stomach pain and was wondering if this could be due to Lyrica and/or stress and anxiety. I spent 38 minutes with this patient today. A copy of the visit note was provided to the patient's provider(s). The patient was sent via [employer] a summary of these recommendations. Clari Whitten, PharmD IV student Clari Ruiz PharmD, [facility] Medication Therapy Management Pharmacist [facility] Telemedicine Visit Details Type of service: Video Conference via [employer] Start Time: 2:02 PM End Time: 2:40 PM Originating Location (pt. Location): Home Distant Location (provider location): Off-site Provider has received verbal consent for a visit from the patient? Yes Medication Therapy Recommendations Bilateral occipital neuralgia Current Medication: pregabalin (LYRICA) 50 MG capsule Rationale: Dose too low - Dosage too low - Effectiveness Recommendation: Increase Dose - Lyrica 100 MG Caps Status: Contact Provider - Awaiting Response SHAMEKA (generalized anxiety disorder) Current Medication: QUEtiapine (SEROQUEL) 100 MG tablet Rationale: Dose too low - Dosage too low - Effectiveness Recommendation: Increase Dose - SEROquel 100 MG Tabs Status: Patient Agreed - Adherence/Education Note: 150mg nightly documented in this encounter Plan of Treatment Upcoming Encounters Date Type Specialty Care Team Description 09/26/2022 Appointment Speech Therapy Obdulio Barrera MD [address] [facility] [address] [place], [place] [phone] Anabel Chew, ENGRAVED ROLLER INSPECTOR [place] [id number] [facility] [address] [place] [address] 09/27/2022 Therapy Visit Physical Therapy Luisana Watkins, PT [address] [place] [address] 09/29/2022 Virtual Visit Pain & Palliative Marilia Deluna, Ronald PhD [address] [place] [address] 09/30/2022 Office Visit Family Practice Aydee Burton, [employer] ENGINEERS RADIOSONDE SPECIALIST [address] [place], [place] [phone] 10/03/2022 Therapy Visit Physical Therapy Una Reardon, PT [address] [place] [phone] 10/10/2022 Hospital Encounter Surgery Lesly Celaya MD [address] [place], [place] [phone] 10/10/2022 Office Visit Surgery Lesly Celaya MD [address] [place] [address] Ninoska Flowers, PA-C [address] [place] [address] 10/10/2022 Surgery Surgery Lesly Celaya, EXCISION, MASSES - MD back, abdomen, [address] right [place] [address] 10/11/2022 Virtual Visit Clari Su, [facility] [address] [address] 10/14/2022 Appointment Speech Therapy Anabel Chew, ENGRAVED ROLLER INSPECTOR [facility] [address] [facility] [address] [place] [address] 10/21/2022 Office Visit Pulmonology Obdulio Barrera MD [address] [facility] [address] [place], [place] [phone] 10/25/2022 PRE VISIT ENT hCaro Burton MD Previsit [address] [place] [address] 10/25/2022 Office Visit ENT Charo Burton MD [address] [place] [address] 10/25/2022 Office Visit ENT Provider, Jeannette 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 Candlemaker 10/28/2022 Appointment Speech Therapy Anabel Chew, CELINE [address] [address] 11/17/2022 Appointment Speech Therapy Anabel Chew SLP [address] [address] 12/23/2022 Office Visit Neurology Colby Yeung MD [address] [place] [address] Scheduled Procedures Name Priority Associated Diagnoses Date/Time EXCISION, MASS, TORSO Lipoma of skin and subcuta neous 10/10/2022 7:30 AM BONE COOKING OPERATOR tissue documented as of this encounter Goals Goal Patient Goal Associated Recent Patient-Stated? Author Type Problems Progress Attend Speciality Care Plan Establish Care 50% No Karene rn, Appointments (08/29/2022 Mago Murray (METAL SANDER, 3:24 PM CDT) [facility] Psychiatry, Counseling, and the Sleep Clinic) Note: Formatting of this note is differe nt from the original. Barriers: Appointment availability. Strengths: Recognition of need, Care High Frequency Mill Operator rdination involvement. Patient expressed understanding of [...] on: 08/16/2022 9:45 AM Lesly Celaya MD [facility] [place] To address painful lumps in my abdomin [...] as of this encounter Visit Diagnoses Diagnosis Major depressive disorder, remission sta tus unspecified, unspecified whether recurrent - Primary SHAMEKA (generalized anxiety disorder) Generalized anxiety disorder PTSD (post-traumatic stress disorder) Posttraumatic stress disorder Bilateral occipital neuralgia Other syndromes affecting cervical regio n Pain Generalized pain Lipoma of skin and subcutaneous tissue Lipoma of other skin and subcutaneous ti ssue documented in this encounter Additional Health Concerns Problem Noted Date Establish Care 07/05/2022 Chronic Pain is not self-managed 07/05/2022 Assessment Noted Time PHQ-9 Depression Total Score: 17 09/02/2022 2:11 PM CD T documented as of this encounter Care Teams Vp Integrity Relationship Specialty Start Date End Date Aydee Burton, PCP - General Nurse Practitioner - 05/17/21 [employer] E[employer] ENG[employer]ERS RADIOSONDE SPECIALIST Family [address] [place], [place] [phone] Aydee Burton, Assigned PCP 04/28/21 [employer] ELECTRON[employer] ENGINEERS RADIOSONDE SPECIALIST [address] [place], [place] [phone] Louisa Hood, Assigned Neuroscience 07/11/21 ELECT[employer]ICAL ELECTRONICS ENGINEERS RADIOSONDE SPECIALIST Provider [address] [place] [address] [place], Assigned Sleep 08/01/21 Angel Turcios, Provider [address] [facility] [address] [facility] [address] [place], [place] [phone] Lesly Celaya MD Assigned Surgical 09/05/21 [address] Provider [place], [place] [phone] [facility]21 Worker Ramses Mcpherson Assigned OBGYN 11/07/21 MD Onesimo Provider [address] [place] [address] Obdulio Barrera MD Critical Care 01/24/[address] [place] [phone] Obdulio Barrera, Assigned Pulmonology 02/06/[address] [place] [phone] Lesvia Stanley EP Cardiac Rehabilitation 03/03/22 03/03/23 [facility] Therapist [address] [id number] Marilia Deluna, PhD Assigned Behavioral 02/20/22 [address] [facility] Health Provider [place] [address] Niyah Decker, [facility] Pharmacist Pharmacist 03/07/22 [address] [facility] [address] [place], [place] [phone] Lesvia Stanley, GHADA Cardiac Rehabilitation 03/17/22 03/17/23 [facility] Therapist [address] [place] [address] Delia Avila, Pharmacist Pharmacist 06/07/22 [facility] [address] [place], [place] [phone] Mago Swift [facility] Lead Sales Office Manager Fish Stringer Assembler - 08/05/21 Clinical Leela Jarvis, [facility] Pharmacist 07/26/22 05/15/23 [address] [facility] [place] [phone] Niyah Decker, [facility] Assigned MTM 08/10/22 [address] [facility] [address] Pharmacist [place], [place] [phone] documented as of this encounter
--- OUTSIDE RECORDS SUMMARY | 2022-09-21 03:57 | XMS_ITS | Encounter Summary ---
:1980 Author Organization [place] Address [address] [place] [address] Care Team Providers Name Role Phone Aydee Burton HOUSE DESIGNER CLINICAL SYSTEMS EDUCATOR Primary Care Provider [phone] Aydee Burton APRN CLINICAL SYSTEMS EDUCATOR Unavailable [phone] Louisa Hood HOUSE DESIGNER CLINICAL SYSTEMS EDUCATOR Unavailable [phone] Angel Hannah MD Unavailable Lesly Celaya MD Unavailable Tawana Patel MA Unavailable Unavailable Ramses Mcpherson MD Unavailable [phone] Obdulio Barrera MD Unavailable [phone] Obdulio Barrera MD Unavailable [phone] Lesvia Stanley Unavailable Marilia Deluna PhD Unavailable Niyah Decker [facility] Unavailable Lesvia Stanley Unavailable Delia Avila [facility] Unavailable [phone] Mago Swift [facility] Unavailable Leela Jarvis [facility] Unavailable Niyah Decker Vania [facility] Unavailable Reason for Visit Reason Onset Date Comments Refill Request 09/06/2022 pregabalin (LYRICA) 50 MG capsule Encounter Details Date Type Department Care Team Description 09/06/2022 Refill [facility] Julio Vargas MD Refill Request Management [facility] e [address] [place]IO (pregabalin (LYRICA) 50 [address] [place] [address] MG capsule) [address] [place] [address] [phone] Social History Tobacco Use Types Packs/Day Years [...] er 08/05/2021 How often do you attend jew or uatsdin services? Never 08/05/2021 Do you belong to any clubs or organizations such as jew N o 08/05/2021 groups, unions, fraternal or [...] at Date Recorded Female 11/09/2021 7:53 PM NEW GRAD RN COVID-19 Exposure Response Date Recorded In the last 10 days, have you been in contact with No / Unsu re 09/05/2022 3:01 PM CDT someone who was confirmed or suspected to have Coronavirus/COVID-19? documented as of this encounter Miscellaneous Notes Telephone Encounter - Caleb Dweey MD - 09/06/2022 1:00 PM CDT Script Eprescribed to pharmacy [place] Prescription Monitoring Program checked Signed Prescriptions: Disp Refills pregabalin (LYRICA) 50 MG capsule 90 cap*0 Sig: Take 1 capsule (50 mg) by mouth 3 times daily Authorizing Provider: CALEB DEWEY MD Telephone Encounter - Tatiana Cleaning CMA - 09/06/2022 11:47 AM CDT Received fax from pharmacy requesting refill(s) for pregabalin (LYRICA) 50 MG capsule Last refilled on 08/10/22 Pt last seen on 08/10/22 Next appt scheduled for none E-prescribe to: [facility] [address] [place] [id number] [place] [address] VIRGIL Will facilitate refill. documented in this encounter Plan of Treatment Upcoming Encounters Date Type Specialty Care Team Description 09/26/2022 Appointment Speech Therapy Obdulio Barrera MD 420 [facility] 276 [place] [address] Anabel Chew, RADIO MACHINIST [facility] 516 [facility] 396 [place], [place] [address] 09/27/2022 Therapy Visit Physical Therapy Luisana Watkins, PT [address] [place] [address] 09/29/2022 Virtual Visit Pain & Palliative Marilia Deluna, [facility] PhD [address] [place], [place] [address] 09/30/2022 Office Visit Family Practice Aydee Burtonlotte, HOUSE DESIGNER CLINICAL SYSTEMS EDUCATOR [address] [place], [place] [phone] 10/03/2022 Therapy Visit Physical Therapy Una Reardon, PT [address] [place] [address] 10/10/2022 Hospital Encounter Surgery Lesly Celaya MD [address] [place], [place] [phone] 10/10/2022 Office Visit Surgery Lesly Celaya MD [address] [place], [place] [phone] Ninoska Flowers PA-Ynes [address] [facility] 300 [place] [address] 10/10/2022 Surgery Surgery Lesly Celaya, EXCISION, MASSES - MD back, abdomen, [address] right lower [facility] [place] [address] 10/11/2022 Virtual Visit Clari Su, [facility] [address] [facility] [address] [place] [address] 10/14/2022 Appointment Speech Therapy Anabel Chew, RADIO MACHINIST [facility] 516 [facility] 396 [place], [place] [phone] 10/21/2022 Office Visit Pulmonology Obdulio Barrera MD 420 [facility] 276 [place], [place] [address] 10/25/2022 PRE VISIT ENT Charo Burton MD Previsit 9 [place], [place] [address] 10/25/2022 Office Visit ENT Charo Burton MD [address] [place], [place] [address] 10/25/2022 Office Visit ENT Provider, 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 Personal Insurance Advisor 10/28/2022 Appointment Speech Therapy Anabel Chew, RADIO MACHINIST [address] [place] [address] 11/17/2022 Appointment Speech Therapy Anabel Chew RADIO MACHINIST [address] [place] [address] 12/23/2022 Office Visit Neurology Colby Yeung MD [address] [place] [address] Scheduled Procedures Name Priority Associated Diagnoses Date/Time EXCISION, MASS, TORSO Lipoma of skin and subcuta neous 10/10/2022 7:30 AM NEW GRAD RN tissue documented as of this encounter Goals Goal Patient Goal Associated Recent Patient-Stated? Author Type Problems Progress Attend Speciality Care Plan Establish Care 50% No Randal rn, Appointments (08/29/2022 Mago Murray (CIRCULATING PROCESS INSPECTOR, 3:24 PM CDT) [facility] Psychiatry, Counseling, and the Sleep Clinic) Note: Formatting of this note is differe nt from the original. Barriers: Appointment availability. Strengths: Recognition of need, Care Wine Sales Representative rdination involvement. Patient expressed understanding of goal: Yes Action steps to achieve this goal: 1. I will attend necessary OBGYN appoint ments (completed) 2. I will have a sleep study done (compl eted) 3. I understand the [facility] will request a s jamesp dentist referral from PCP (completed) 4. I will schedule sleep dentist appoint ment when referral placed 5.I will continue going to psychiatry ap pointments for counseling and medication adjustments, in progress/ongoing. 6. I will attend my appointment on: 08/16/2022 9:45 AM Lesly Celaya MD [facility] Surgery [facility] To address painful lumps in my [...] as of this encounter Visit Diagnoses Diagnosis Neuropathic pain Neuralgia, neuritis, and radiculitis, un specified Lipoma of skin and subcutaneous tissue Lipoma of other skin and subcutaneous ti ssue documented in this encounter Additional Health Concerns Problem Noted Date Establish Care 07/05/2022 Chronic Pain is not self-managed 07/05/2022 Assessment Noted Time PHQ-9 Depression Total Score: 17 09/02/2022 2:11 PM CD T documented as of this encounter Care Teams Diesel Powerplant Mechanic Relationship Specialty Start Date End Date Aydee Burton, PCP - General Nurse Practitioner - 05/17/21 HOUSE DESIGNER CLINICAL SYSTEMS EDUCATOR Family [address] [place], [place] [phone] Aydee Burton, Assigned PCP 04/28/21 HOUSE DESIGNER CLINICAL SYSTEMS EDUCATOR [address] [place], [place] [address] Louisa Hood, Assigned Neuroscience 07/11/21 HOUSE DESIGNER CLINICAL SYSTEMS EDUCATOR Provider [address] [place], [place] [phone] [place], Assigned Sleep 08/01/21 Angel Turcios, Provider [address] [place], [place] [address] Lesly Celaya MD Assigned Surgical 09/05/21 [address] [place] [place] [address] Tawana Patel [facility] 09/30/21 Worker Ramses Mcpherson Assigned OBGYN 11/07/21 MD Onesimo Provider [address] [place], [place] [phone] Obdulio Barrera MD Critical Care 01/24/[address] [place] [address] Obdulio Barrera, Assigned Pulmonology 02/06/[address] [address] Lesvia Stanley, EP Cardiac Rehabilitation 03/03/22 03/03/23 [facility] Therapist [address] [id number] Marilia Deluna, PhD Assigned Behavioral 02/20/22 [address] [facility] [place] [address] Niyah Decker, [facility] Pharmacist Pharmacist 03/07/22 420 [facility] 812 [place], [place] [address] Lesvia Stanley, EP Cardiac Rehabilitation 03/17/22 03/17/23 [facility] Therapist [address] [address] Delia Avila, Pharmacist Pharmacist 06/07/22 [facility] 909 [place], [place] [phone] Mago Swift, [facility] Lead Physician Surgeon Barge Pilot - 08/05/21 Clinical Leela Jarvis [facility] Pharmacist 07/26/22 05/15/23 [address] [facility] [place] [address] Niyah Decker, [facility] Assigned MTM 08/10/22 420 [facility] 812 Pharmacist [place], [place] [address] documented as of this encounter
--- OUTSIDE RECORDS SUMMARY | 2022-09-21 03:57 | XMS_ITS | Encounter Summary ---
:1980 Author Organization [place] Address [address] [place] [address] Care Team Providers Name Role Phone Aydee Burton DIESEL TECHNOLOGY INSTRUCTOR DISTILLING DEPARTMENT SUPERVISOR Primary Care Provider Aydee Burton APRN DISTILLING DEPARTMENT SUPERVISOR Unavailable [phone] Louisa Hood DIESEL TECHNOLOGY INSTRUCTOR DISTILLING DEPARTMENT SUPERVISOR Unavailable [phone] Angel Hannah MD Unavailable Lesly Celaya MD Unavailable Tawana Patel MA Unavailable Unavailable Ramses Mcpherson MD Unavailable [phone] Obdulio Barrera MD Unavailable [phone] Obdulio Barrera MD Unavailable [phone] Lesvia Stanley Unavailable Marilia Deluna PhD Unavailable Niyah Decker [facility] Unavailable Lesvia Stanley Unavailable Delia Avila [facility] Unavailable [phone] Mago Swift [facility] Unavailable Leela Jarvis [facility] Unavailable Niyah Decker Vania [facility] Unavailable Reason for Visit Rehab Therapy Physical Therapy (Routine: Next available opening) - Pending Review Specialty Diagnoses / Procedures Referred By Contact Refer red To Contact Diagnoses Tension headache Cervicogenic headache Cervicalgia Colby Yeung MD [address] [place] [address] Referral ID Status Reason Start Date Expiration Date Visits V isits Requested Authorized [id number] Pending 06/30/2022 06/30/2023 1 1 Review Encounter Details Date Type Department Care Team Description 09/05/[address] [facility] Una Murray, PT Dx[facility] [address] [address] [address] [place] [address] (Work) [phone] Social History Tobacco Use Types Packs/Day Years [...] er 08/05/2021 How often do you attend rastafari or congregational services? Never 08/05/2021 Do you belong to any clubs or organizations such as rastafari N o 08/05/2021 groups, unions, fraternal or [...] at Date Recorded Female 11/09/2021 7:53 PM TELEVISION SPECIALIST COVID-19 Exposure Response Date Recorded In the last 10 days, have you been in contact with No / Unsu re 09/05/2022 3:01 PM CDT someone who was confirmed or suspected to have Coronavirus/COVID-19? documented as of this encounter Progress Notes Una Reardon, PT - 09/06/2022 7:53 AM CDT Images from the original note were not included. [facility] OUTPATIENT Physical Therapy ORTHOPEDIC EVALUATION PLAN OF TREATMENT FOR OUTPATIENT REHABILITATION (COMPLETE FOR INITIAL CLAIMS ONLY) Patient's Last Name, First Name, M.I. Date of : 1980 Marta Hill A Provider???s Name: [facility] Start of Care Date: 07/11/22 Onset Date: 06/30/22 (MD order) Treatment Diagnosis: Neck Pain/Headaches Medical Diagnosis: Neck pain Goals: 09/06/22 [address] Goals listed below are for Neck/Headahces Goal #1 Goal #1 sleeping Previous Functional Level No restrictions Current Functional Level 3-5 hours without sleep per night STG Target Performance 2-3 hours without sleep per night Rationale to establish restorative sleep pattern Due Date 08/09/22 Date Goal Met 08/12/22 LTG Target Performance 1-2 hours without sleep per night Rationale to establish restorative sleep pattern Due Date 11/01/22 If goal not met, why? goal progressing Therapy Frequency: 1x/week Predicted Duration of Therapy Intervention: 8 weeks CALLIE CARR, PT I CERTIFY THE NEED FOR THESE SERVICES FURNISHED UNDER THIS PLAN OF TREATMENT AND WHILE UNDER MY CARE (Physician attestation of this document indicates review and certification of the therapy plan). Certification Date From: 09/05/22 Certification Date To: 11/01/22 Referring Provider: Colby Carbajal * Initial Assessment See Epic Evaluation SOC Date: 07/11/22 Associated attestation - Colby Yeung MD - 09/06/2022 8:46 AM CDT Physician Attestation I agree with the information in this note. MD Alexys Iyer Shannon M, PT - 09/05/2022 3:10 PM CDT PROGRESS REPORT Progress reporting period is from IE to 09/05/22. SUBJECTIVE Subjective: the pt has attended 6 visits of PT for treatment of her chronic neck pain and headaches.She reports some mild improvement with PT interventions and stretches often throughout the day. THe patient does continue to note that stress strongly conributes to her pain and she has a lot of external stressors in her life. Current Pain level: 5/10. Previous pain level was 7/10 . Changes in function: Yes (See Goal flowsheet attached for changes in current functional level) Adverse reaction to treatment or activity: None OBJECTIVE Changes noted in objective findings: Yes Objective: Cervical AROM: min limited extension and rotation, all others WNL, UE strength WNL, tender to subocciptls, UT, middle trap. ASSESSMENT/PLAN Updated problem list and treatment plan: Diagnosis 1: Neck Pain/headahces2 Pain - hot/cold therapy, US, electric stimulation, manual therapy and home program Decreased strength - therapeutic exercise and therapeutic activities Impaired posture - neuro re-education STG/LTGs have been met or progress has been made towards goals: Yes (See Goal flow sheet completed today.) Assessment of Progress: The patient's condition is improving. Self Management Plans: Patient has been instructed in a home treatment program. I have re-evaluated this patient and find that the nature, scope, duration and intensity of the therapy is appropriate for the medical condition of the patient. Marta continues to require the following intervention to meet STG and LTG's: PT Recommendations: This patient would benefit from continued therapy. Frequency: 1 X week, once daily Duration: for 8 weeks Please refer to the daily flowsheet for treatment today, total treatment time and time spent performing 1:1 timed codes. documented in this encounter Plan of Treatment Upcoming Encounters Date Type Specialty Care Team Description 09/26/2022 Appointment Speech Therapy Obdulio Barrera MD 420 [facility] 276 [place], [place] [address] Anabel Chew, THIRD LOADER [place] [address] [facility] 396 [place] [address] 09/27/2022 Therapy Visit Physical Therapy Luisana Watkins, PT 2[address] [place] [address] 09/29/2022 Virtual Visit Pain & Palliative Marilia Deluna, Care PhD [address] [place], [place] [address] 09/30/2022 Office Visit Family Practice Aydee Burton, DIESEL TECHNOLOGY INSTRUCTOR [facility] 4[address] [place], [place] [address] 10/03/2022 Therapy Visit Physical Therapy Una Reardon, PT [address] [place] [phone] 10/10/2022 Hospital Encounter Surgery Lesly Celaya MD [address] [place], [place] [address] 10/10/2022 Office Visit Surgery Lesly Celaya MD [address] [place], [place] [phone] Ninoska Flowers, FLORES-C [address] [place], [place] [address] 10/10/2022 Surgery Surgery Lesly Celaya, EXCISION, MASSES - MD back, abdomen, [address] extremity [place], [place] [address] 10/11/2022 Virtual Visit Pharm Clari Stoll, [facility] [address] [phone] [place], [place] [address] 10/14/2022 Appointment Speech Therapy Anabel Cehw, THIRD LOADER [address] [address] 10/21/2022 Office Visit Pulmonology Obdulio Barrera MD 420 [facility] 276 [place], [place] [address] 10/25/2022 PRE VISIT ENT Charo Burton MD Previsit [address] [place] [address] 10/25/2022 Office Visit Charo Carter MD [address] [place] [phone] 10/25/2022 Office Visit ENT Provider, 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 Volunteer Patient Representative 10/28/2022 Appointment Speech Therapy Anabel Chew, THIRD LOADER [address] [phone] 11/17/2022 Appointment Speech Therapy Anabel Chew, THIRD LOADER [address] [address] 12/23/2022 Office Visit Neurology Colby Yeung MD [address] [place], [place] [address] Scheduled Procedures Name Priority Associated Diagnoses Date/Time EXCISION, MASS, TORSO Lipoma of skin and subcuta neous 10/10/2022 7:30 AM TELEVISION SPECIALIST tissue documented as of this encounter Goals Goal Patient Goal Associated Recent Patient-Stated? Author Type Problems Progress Attend Speciality Care Plan Establish Care 50% Claudia Tee rn, Appointments (08/29/2022 Mago Murray, (FLOUR WORKER, 3:24 PM CDT) [facility] Psychiatry, Counseling, and the Sleep Clinic) Note: Formatting of this note is differe nt from the original. Barriers: Appointment availability. Strengths: Recognition of need, Care Gm rdination involvement. Patient expressed understanding of goal: [...] Lesly Celaya MD [facility] Carmen To address painful lumps in my abdomin [...] Mago Swift well-managed. self-managed 3:14 PM CDT) Terri, MARISA [...] Name Priority Date/Time Associated Diagnosis Comme nts NE MANUAL THERAPY, EA Routine 09/06/2022 7:54 AM CDT Neck pain 15 MIN documented in this encounter Visit [...] documented as of this encounter Care Teams Mems Engineer Relationship Specialty Start Date End Date Aydee Burton, PCP - General Nurse Practitioner - 05/17/21 DIESEL TECHNOLOGY INSTRUCTOR DISTILLING DEPARTMENT SUPERVISOR Family [address] [place], [place] [address] Aydee Burton, Assigned PCP 04/28/21 DIESEL TECHNOLOGY INSTRUCTOR DISTILLING DEPARTMENT SUPERVISOR [address] [place], [place] [address] Louisa Hood, Assigned Neuroscience 07/11/21 DIESEL TECHNOLOGY INSTRUCTOR DISTILLING DEPARTMENT SUPERVISOR Provider [address] [place], [place] [phone] [place], Assigned Sleep 08/01/21 Angel Turcios, Provider [address] [phone] Lesly Celaya MD Assigned Surgical 09/05/21 [address] [facility] Provider [place], [place] [address] Tawana Patel MA [facility] 09/30/21 Worker Ramses Mcpherson Assigned OBGYN 11/07/21 MD Onesimo Provider [address] [place], [place] [address] Obdulio Barrera MD Critical Care 01/24/[address] [place] [address] 276 [place], [place] [address] Obdulio Barrera, Assigned Pulmonology 02/06/22 [place] Provider [address] [place] [address] Lesvia Stanley, GHADA Cardiac Rehabilitation 03/03/22 03/03/23 [facility] Therapist [address] [address] Marilia Deluna, PhD Assigned Behavioral 02/20/22 [address] [facility] Provider [place], [place] [address] Niyah Decker, [facility] Pharmacist Pharmacist 03/07/[address] [place] [address] 8[address] [place], [place] [address] Lesvia Stanley, GHADA Cardiac Rehabilitation 03/17/22 03/17/23 [facility] Therapist [address] [address] Delia Avila, Pharmacist Pharmacist 06/07/[address] [address] Mago Swift, [facility] Lead Molding Line Operator Licensed Practical Nurse Clinic Nurse - 08/05/21 Clinical Lelea Jarvis RPH Pharmacist 07/26/22 05/15/23 47[address] [facility] [place] [phone] Niyah Decker [facility] Assigned [place] 08/10/22 420 [facility] 812 [place] [address] documented as of this encounter
--- OUTSIDE RECORDS SUMMARY | 2022-09-21 03:57 | XMS_ITS | Encounter Summary ---
:1980 Author Organization [facility] Address [address] [place] [address] Care Team Providers Name Role Phone Aydee Burton PATIENT OBSERVER INSTRUCTOR MODELING Primary Care Provider [phone] Aydee Burton APRN INSTRUCTOR MODELING Unavailable [phone] Louisa oHod PATIENT OBSERVER INSTRUCTOR MODELING Unavailable [phone] Angel Hannah MD Unavailable Lesly Celaya MD Unavailable Tawana Patel MA Unavailable Unavailable Ramses Mcpherson MD Unavailable [phone] Obdulio Barrera MD Unavailable Obdulio Barrera MD Unavailable [phone] Lesvia Stanley Unavailable Marilia Deluna PhD Unavailable Niyah Decker [facility] Unavailable Lesvia Stanley Unavailable Delia Avila [facility] Unavailable [phone] JamisonWinstone Terri [facility] Unavailable Leela Jarvis [facility] Unavailable Niyah Decker [facility] Unavailable Encounter Details Date Type Department Care Team Description 08/29/2022 Virtual Visit [facility] Marilia Deluna, Jeremie onic pain syndrome (Primary Dx); Pain Management PhD Neuropathic pain; [place] [address] Cervicogenic headache; [address] [place], [place] Cervical radiculopathy [address] [address] [place] [address] Social History Tobacco Use Types Packs/Day Years [...] er 08/05/2021 How often do you attend mu-ism or anabaptist services? Never 08/05/2021 Do you belong to any clubs or organizations such as mu-ism N o 08/05/2021 groups, unions, fraternal or [...] place to sleep or slept in a half-way (including now)? Sex Assigned at Date Recorded Female 11/09/2021 7:53 PM ACCESS REGISTRAR COVID-19 Exposure Response Date Recorded In the last 10 days, have you been in contact with No / Unsu re 08/26/2022 9:44 AM CDT someone who was confirmed or suspected to have Coronavirus/COVID-19? documented as of this encounter Progress Notes Marilia Deluna, PhD - 08/29/2022 2:00 PM CDT Marta Hill is a 42 year old female who is being evaluated via a billable video visit. Patient is currently in the [facility]? yes Patient would like the video invitation sent by: Text to cell phone: [phone]} Video Start Time: 2:00 PM Video Stop Time: 2:54 PM Additional provider notes: Pain Diagnoses per pain provider: Chronic pain syndrome ?? Cervicogenic headache ?? Cervical radiculopathy ?? Neuropathic pain DATA: During today's visit you reported the following: Your pain is largely unchanged, injections haven't been as helpful as you'd have liked. Your mood is more anxious - find it coming out as irritability with others. Your activity level is unchanged. Your stress level is quite high yet - co-parenting and ex requesting custody change, finances, housing. Your sleep is still quite high. You reported engaging in self-care for your pain 1-2 times per day. You identified that you would like to focus on the following or had questions regarding the following issues or concerns, and we discussed the following: - still looking for new place to live yet - struggling to find affordable housing, have to vacate current housing by 09/11 unless you can pay full amount - had injections in neck, not as lasting as you'd hoped - ongoing PT for neck - ongoing stress with co-parenting and ex-'s request to change custody arrangement - saw surgeon for lipomas on stomach - PCP won't approved for surgery - working with [facility] - discussed engaging in grounding prior to tomorrow's court hearing with ex- - also discussedengaging in self-soothing and comfort after as well - frustrated boyfriend doesn't help with rent or contribute financially - discussed using writing to externalize anxious thoughts, try brain dump before bed ASSESSMENT: Marta's pain is largely unchanged despite cervical injections since her last visit. She seems to have awareness of how her ongoing high stress level is likely contributing to her pain levels. PLAN: Your next appointment is scheduled for 09/29 at 3:00 AM. Assignment/Objectives /interventions for next session: - call to find out when you need return with Madalyn Ponce MD - engage in self-care before and after court hearing We believe regular attendance is miranda to your success in our program! ?? Any time you are unable to keep your appointment we ask that you call us at [phone] at least24 hours in advance to cancel.This will allow us to offer the appointment time to another patient. ?? Multiple missed appointments may lead to dismissal from the clinic. Telemedicine Visit: The patient's condition can be safely assessed and treated via synchronous audioand visual telemedicine encounter. Reason for Telemedicine Visit: Services only offered telehealth Originating Site (Patient Location): Patient's home Distant Site (Provider Location): Provider Remote Setting- Home Office Consent: The patient/guardian has verbally consented to: the potential risks and benefits of telemedicine (video visit) versus in person care; bill my insurance or make self-payment for services provided; and responsibility for payment of non-covered services. Mode of Communication: Video Conference via [place] As the provider I attest to compliance with applicable laws and regulations related to telemedicine. Marilia Deluna PsyD LP Licensed Psychologist Outpatient Clinic Therapist [facility] Pain Management documented in this encounter Plan of Treatment Upcoming Encounters Date Type Specialty Care Team Description 09/26/2022 Appointment Speech Therapy Obdulio Barrera MD [address] [facility] 276 [place] [address] Anabel Chew, VICE PRESIDENT QUALITY [address] [place] [address] 09/27/2022 Therapy Visit Physical Therapy Luisana Watkins, PT [address] [place] [address] 09/29/2022 Virtual Visit Pain & Palliative Marilia Deluna, [facility] PhD [address] [place], [place] [address] 09/30/2022 Office Visit Family Practice Aydee Burton, PATIENT OBSERVER INSTRUCTOR MODELING [address] [place], [place] [address] 10/03/2022 Therapy Visit Physical Therapy Una Reardon, PT [address] [place] [phone] 10/10/2022 Hospital Encounter Surgery Lesly Celaya MD [address] [place] [address] 10/10/2022 Office Visit Surgery Lesly Celaya MD [address] [place] [address] Ninoska Flowers, PA-C [address] [place] [address] 10/10/2022 Surgery Surgery Lesly Celaya, EXCISION, MASSES - MD back, abdomen, [address] right lower [facility] [place] [address] 10/11/2022 Virtual Visit Clari Su, [facility] [address] [id number] [place] [address] 10/14/2022 Appointment Speech Therapy Anabel Chew, VICE PRESIDENT QUALITY [facility] [address] [facility] 396 [place] [address] 10/21/2022 Office Visit Pulmonology Obdulio Barrera MD [address] [address] 10/25/2022 PRE VISIT ENT Charo Burton MD Previsit [address] [place] [address] 10/25/2022 Office Visit Charo Carter MD [address] [place] [address] 10/25/2022 Office Visit ENT Provider, Jeannette 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 Mash Grinder 10/28/2022 Appointment Speech Therapy Anabel Chew, VICE PRESIDENT QUALITY [address] [address] 11/17/2022 Appointment Speech Therapy Anabel Chew VICE PRESIDENT QUALITY [address] [address] 12/23/2022 Office Visit Neurology Colby Yeung MD [address] [place], [place] [address] Scheduled Procedures Name Priority Associated Diagnoses Date/Time EXCISION, MASS, TORSO Lipoma of skin and subcuta neous 10/10/2022 7:30 AM ACCESS REGISTRAR tissue documented as of this encounter Goals Goal Patient Goal Associated Recent Patient-Stated? Author Type Problems Progress Attend Speciality Care Plan Establish Care 50% No Randal rn, Appointments (08/29/2022 Mago Murray, (WORKFORCE SERVICES REPRESENTATIVE, 3:24 PM CDT) [facility] Psychiatry, Counseling, and the Sleep Clinic) Note: Formatting of this note is differe nt from the original. Barriers: Appointment availability. Strengths: Recognition of need, Care Circle Saw Operator rdination involvement. Patient expressed understanding of [...] on: 08/16/2022 9:45 AM Lesly Celaya MD [facility] [place] To address painful lumps in my abdomin [...] Name Priority Date/Time Associated Diagnosis Comme nts [place] [facility] Routine 08/29/2022 3:05 PM Chronic pa in syndrome INTERVENTION, CDT Neuropathic pain INDIVIDUAL, INITIAL Cervicogenic headache 30 MINS Cervical radiculopathy documented in this encounter Visit Diagnoses Diagnosis Chronic pain syndrome - Primary Neuropathic pain Neuralgia, neuritis, and radiculitis, un specified Cervicogenic headache Headache Cervical radiculopathy Brachial neuritis or radiculitis nos Lipoma of skin and subcutaneous tissue Lipoma of other skin and subcutaneous ti ssue documented in this encounter Additional Health Concerns Problem Noted Date Establish Care 07/05/2022 Chronic Pain is not self-managed 07/05/2022 Assessment Noted Time PHQ-9 Depression Total Score: 16 06/24/2022 9:31 AM CD T documented as of this encounter Care Teams Tank Stave Assembler Relationship Specialty Start Date End Date Aydee Burton, PCP - General Nurse Practitioner - 05/17/21 PATIENT OBSERVER INSTRUCTOR MODELING Family [address] [place], [place] [phone] Aydee Burton, Assigned PCP 04/28/21 PATIENT OBSERVER INSTRUCTOR MODELING [address] [place] [phone] Louisa Hood, Assigned Neuroscience 07/11/21 PATIENT OBSERVER INSTRUCTOR MODELING Provider [address] [place], [place] [phone] [place], Assigned Sleep 08/01/21 Angel Turcios, Provider [address] [place], [place] [phone] Lesly Celaya MD Assigned Surgical 09/05/21 [address] [place] [place] [address] Tawana Patel MA [facility] Health 09/30/21 Worker Ramses Mcpherson Assigned OBGYN 11/07/21 MD Onesimo Provider [address] [place] [address] Obdulio Barrera MD Critical Care 01/24/22 [address] [facility] 276 [place] [address] Obdulio Barrera, Assigned Pulmonology 02/06/22 MD Provider 420 [facility] 276 [place], [place] [address] Lesvia Stanley, EP Cardiac Rehabilitation 03/03/22 03/03/23 [facility] Therapist [address] [place] [phone] Marilia Deluna, PhD Assigned Behavioral 02/20/22 [address] [facility] [place] [address] Niyah Decker, [facility] Pharmacist Pharmacist 03/07/[address] [place] [address] [address] [place], [place] [address] Lesvia Stanley, GHADA Cardiac Rehabilitation 03/17/22 03/17/23 [facility] Therapist [address] [address] Delia Avlia, Pharmacist Pharmacist 06/07/22 [facility] [address] [place], [place] [address] Mago Swift, [facility] Lead [employer]one Chocolate Dipper Revenue Coordinator - 08/05/21 Clinical Leela Jarvis [facility] Pharmacist 07/26/22 05/15/[address] [place] [address] [place] [address] Niyah Decker, [facility] Assigned MTM 08/10/22 420 [facility] 812 Pharmacist [place], [place] [phone] documented as of this encounter
--- OUTSIDE RECORDS SUMMARY | 2022-09-21 03:57 | XMS_ITS | Encounter Summary ---
:1980 Author Organization [place] Address [address] [place] [address] Care Team Providers Name Role Phone Aydee Burton DIRECTOR REGULATORY AFFAIRS TELEPHONIC CASE MANAGER Primary Care Provider Aydee Burton APRN TELEPHONIC CASE MANAGER Unavailable [phone] Louisa Hood DIRECTOR REGULATORY AFFAIRS TELEPHONIC CASE MANAGER Unavailable [phone] Angel Hannah MD Unavailable Lesly Celaya MD Unavailable Tawana Patel MA Unavailable Unavailable Ramses Mcpherson MD Unavailable [phone] Obdulio Barrera MD Unavailable [phone] Obdulio Barrera MD Unavailable [phone] Lesvia Stanley Unavailable Marilia Deluna PhD Unavailable Niyah Decker [facility] Unavailable Lesvia Stanley Unavailable Delia Avila [facility] Unavailable [phone] JamisonMago [facility] Unavailable Leela Jarvis [facility] Unavailable Niyah Decker [facility] Unavailable Encounter Details Date Type Department Care Team Description 09/05/2022 Travel Social History Tobacco Use Types Packs/Day [...] er 08/05/2021 How often do you attend religion or shinto services? Never 08/05/2021 Do you belong to any clubs or organizations such as religion N o 08/05/2021 groups, unions, fraternal or [...] place to sleep or slept in a chcf (including now)? Sex Assigned at Date Recorded Female 11/09/2021 7:53 PM SAP ADMINISTRATOR COVID-19 Exposure Response Date Recorded In the last 10 days, have you been in contact with No / Unsu re 09/05/2022 3:01 PM CDT someone who was confirmed or suspected to have Coronavirus/COVID-19? documented as of this encounter Plan of Treatment Upcoming Encounters Date Type Specialty Care Team Description 09/26/2022 Appointment Speech Therapy Obdulio Barrera MD 420 [facility] 276 [place], [place] [address] Anabel Chew, PUG MACHINE OPERATOR [facility] 516 [facility] 396 [place] [address] 09/27/2022 Therapy Visit Physical Therapy Luisana Watkins, PT [address] [place] [address] 09/29/2022 Virtual Visit Pain & Palliative Marilia Deluna, [facility] PhD [address] [place] [address] 09/30/2022 Office Visit Family Practice Aydee Burton, DIRECTOR REGULATORY AFFAIRS TELEPHONIC CASE MANAGER [address] [place] [phone] 10/03/2022 Therapy Visit Physical Therapy Una Reardon, PT [address] [place] [phone] 10/10/2022 Hospital Encounter Surgery Lesly Celaya MD [address] [place], [place] [address] 10/10/2022 Office Visit Surgery Lesly Celaya MD [address] [place], [place] [address] Ninoska Flowers PA-Ynes [address] [facility] 300 [place] [address] 10/10/2022 Surgery Surgery Lesly Celaya, EXCISION, MASSES - back, abdomen, [address] right lower [facility] extremity [place], [place] [phone] 10/11/2022 Virtual Visit Clari Su, [facility] [address] [place] [address] 10/14/2022 Appointment Speech Therapy Anabel Chew, PUG MACHINE OPERATOR [address] [address] 10/21/2022 Office Visit Pulmonology Obdulio Barrera MD 420 [facility] 276 [place], [place] [address] 10/25/2022 PRE VISIT ENT Charo Burton MD Previsit [address] [place] [address] 10/25/2022 Office Visit ENT Charo Burton MD [address] [place], [place] [address] 10/25/2022 Office Visit ENT Provider, 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 Preboarder 10/28/2022 Appointment Speech Therapy Anabel Chew, PUG MACHINE OPERATOR [address] [address] 11/17/2022 Appointment Speech Therapy Anabel Chew SLP [address] [address] 12/23/2022 Office Visit Neurology Colby Yueng MD [address] [address] Scheduled Procedures Name Priority Associated Diagnoses Date/Time EXCISION, MASS, TORSO Lipoma of skin and subcuta neous 10/10/2022 7:30 AM SAP ADMINISTRATOR tissue documented as of this encounter Goals Goal Patient Goal Associated Recent Patient-Stated? Author Type Problems Progress Attend Speciality Care Plan Establish Care 50% Claudia Tee rn, Appointments (08/29/2022 Mago Murray, (LEATHER CRAFTER, 3:24 PM CDT) [facility] Psychiatry, Counseling, and the Sleep Clinic) Note: Formatting of this note is differe nt from the original. Barriers: Appointment availability. Strengths: Recognition of need, Care Database Management Specialist rdination involvement. Patient expressed understanding of goal: [...] on: 08/16/2022 9:45 AM Lesly Celaya MD [facility] Surgery [facility] [place] To address painful lumps in my abdomin [...] documented as of this encounter Care Teams Construction Plant Operator Relationship Specialty Start Date End Date Aydee Burton, PCP - General Nurse Practitioner - 05/17/21 DIRECTOR REGULATORY AFFAIRS TELEPHONIC CASE MANAGER Family [address] [place], [place] [phone] Aydee Burton, Assigned PCP 04/28/21 DIRECTOR REGULATORY AFFAIRS TELEPHONIC CASE MANAGER [address] [place] [address] Louisa Hood, Assigned Neuroscience 07/11/21 DIRECTOR REGULATORY AFFAIRS TELEPHONIC CASE MANAGER Provider [address] [place], [place] [phone] [place], Assigned Sleep 08/01/21 Angel Turcios, Provider [address] [place], [place] [phone] Lesly Celaya MD Assigned Surgical 09/05/21 [address] Provider [place], [place] [phone] Tawana Patel MA [facility] Health 09/30/21 Worker Ramses Mcpherson Assigned OBGYN 11/07/21 MD Onesimo Provider [address] [place], [place] [phone] Obdulio Barrera MD Critical Care 01/24/22 420 [facility] 276 [place], [place] [phone] Obdulio Barrera, Assigned Pulmonology 02/06/22 MD Provider 420 [facility] 276 [place], [place] [address] Lesvia Stanley, GHADA Cardiac Rehabilitation 03/03/22 03/03/23 [facility] Therapist [address] [place] [phone] Marilia Deluna, PhD Assigned Behavioral 02/20/22 [address] [facility] Health Provider [place], [place] [address] Niyah Decker, [facility] Pharmacist Pharmacist 03/07/[address] [place] [address] [address] [place], [place] [address] Lesvia Stanley, GHADA Cardiac Rehabilitation 03/17/22 03/17/23 [facility] Therapist [address] [place] [address] Delia Avila, Pharmacist Pharmacist 06/07/22 [facility] [address] [place] [address] Mago Swift, [facility] Lead Whiskey Regauger Rolling Machine Operator Automatic - 08/05/21 Clinical Leela Jarvis [facility] Pharmacist 07/26/22 05/15/[address] [facility] [address] [place], [place] [phone] Niyah Decker, [facility] Assigned MTM 08/10/22 420 [facility] [address]12 Pharmacist [place], [place] [address] documented as of this encounter
--- OUTSIDE RECORDS SUMMARY | 2022-09-21 03:57 | XMS_ITS | Encounter Summary ---
:1980 Author Organization [facility] Address [address] [place] [address] Care Team Providers Name Role Phone Aydee Burton ADVANCED REGISTERED NURSE PSYCHIATRIC NURSE PRACTITIONER Primary Care Provider Aydee Burton APRN PSYCHIATRIC NURSE PRACTITIONER Unavailable [phone] Louisa Hood ADVANCED REGISTERED NURSE PSYCHIATRIC NURSE PRACTITIONER Unavailable [phone] Angel Hannah MD Unavailable Lesly Celaya MD Unavailable Tawana Patel MA Unavailable Unavailable Ramses Mcpherosn MD Unavailable Obdulio Barrera MD Unavailable [phone] Obdulio Barrera MD Unavailable [phone] Lesvia Stanley Unavailable Marilia Deluna PhD Unavailable Niyah Decker [facility] Unavailable Lesvia Stanley Unavailable Delia Avila [facility] Unavailable [phone] Mago Swift [facility] Unavailable Simona Leela [facility] Unavailable BrianneNiyah [facility] Unavailable Reason for Referral Rehab Therapy Integrated Services (Routine: Next available opening) - Authorized Specialty Diagnoses / Procedures Referred By Contact Refer red To Contact Diagnoses Severe persistent asthma without complication Vocal cord dysfunction Obdulio Barrera [facility] [address] [place] [phone] [place] [id number] Referral ID Status Reason Start Date Expiration Date Visits V isits Requested Authorized [id number] Authorized 09/05/2022 11/12/2022 365 365 Reason for Visit Rehab Therapy Integrated Services (Routine: Next available opening) - Authorized Specialty Diagnoses / Procedures Referred By Contact Refer red To Contact Diagnoses Severe persistent asthma without complication Vocal cord dysfunction Obdulio Barrera [facility] RACHEL BIRD [address] [place] [phone] [place] [address] Referral ID Status Reason Start Date Expiration Date Visits V isits Requested Authorized [id number] Authorized 09/05/2022 11/12/2022 365 365 Encounter Details Date Type Department Care Team Description 09/12/2022 [facility] Obdulio Jason MD [address] [place] [id number] Vocal cord dysfunction (Primary Dx); Encounter Rehabilitation Anabel Chew, ZIGZAG ELASTIC ATTACHER [facility] [address] [place] [phone] Severe persistent asthma without complic ation Services [address] [place] [phone] Social History Tobacco Use Types Packs/Day Years [...] er 08/05/2021 How often do you attend buddhism or anabaptism services? Never 08/05/2021 Do you belong to any clubs or organizations such as buddhism N o 08/05/2021 groups, unions, fraternal or [...] at Date Recorded Female 11/09/2021 7:53 PM PANEL BEATER COVID-19 Exposure Response Date Recorded In the last 10 days, have you been in contact with No / Unsu re 09/12/2022 2:14 PM CDT someone who was confirmed or suspected to have Coronavirus/COVID-19? documented as of this encounter Medications at Time of Discharge [...] Take 1 vial (2.5 mg) 90 mL 07/2022 (2.5 MG/3ML) 0.083% neb by nebulization every solutionIndications: 6 hours as needed for Wheezing, Pulmonary air shortness of breath / trapping, Shortness of dyspnea or wheezing breath benzonatate (TESSALON) Take 1 capsule (100 90 capsule 1 05/2022 100 MG mg) by mouth 3 times capsuleIndications: daily as needed for Cough cough budesonide-formoterol Inhale 2 puffs into 10.2 g 01/19 (SYMBICORT) 160-4.5 the lungs 2 times [...] (FLONASE) Use 2 spray(s) in 16 g 022 50 MCG/ACT nasal each nostril once sprayIndications: SOB daily (shortness of breath) ibuprofen Take 200 mg by mouth 0 (ADVIL/MOTRIN) 200 MG daily 400mg - Daily capsule for pain ipratropium - albuterol Take 1 vial (3 mLs) 540 mL 0.5 mg/2.5 mg/3 mL by nebulization every [...] 100 mg by mouth 30 tablet 2 02/2022 100 MG tablet as needed QUEtiapine [...] infection (H) documented as of this encounter Progress Notes Anabel Chew, ZIGZAG ELASTIC ATTACHER - 09/12/2022 11:59 PM CDT Images from the original note were not included. Speech-Language Pathology Department VOICE, BREATHING, AND COUGH EVALUATION [facility] 09/12/22 1430 General Information Type Of Visit Initial Start Of Care Date 09/12/22 Referring Physician Obdulio Barrera MD (Pulmonology) Orders Evaluate And Treat Medical Diagnosis Vocal cord dysfunction, Severe persistent asthma without complication Onset Of Illness/injury Or Date Of Surgery 07/13/22 (order date) Precautions/Limitations no known precautions/limitations Hearing WFL for 1:1 conversation Surgical/Medical history reviewed Yes Pertinent History Of Current Problem 42yo female with severe persistent asthma with ongoing symptomsdespite maximal inhaler therapy presenting for evaluation of vocal cord dysfunction. Pt reports SOB,chest tightness, and coughing with exertion. She reports a sensation of difficulty with both inhalation and exhalation, noting that it feels like she can't get enough air in, and she is unable to push all the air back out. Walking and bending over will trigger her symptoms, but they can also be triggered by strong odors (e.g. cleaning products). She uses her rescue inhaler about 4x/day, but it does not completely resolve her symptoms. Her nebulizer also helps, but not completely. She reports that her voice goes funky when she talks, noting that she sounds weird but doesn't lose her voice completely. Her throat will start to hurt with talking, and she will also cough more if she talks a lot. The cough is dry and can come in fits that last for a long time. Drinking water and cough drops help withthe cough, but the benefits don't last for very long. Her throat always feels dry despite frequent water intake. She reports occasional dysphagia, noting things will go down wrong or get stuck in her throat, especially if a coughing fit starts while she is eating. She is taking mediation for reflux, but does not have any distinct symptoms other than hoarseness and cough. Most recent PFTs in November 2021 were normal. CXR in January was clear. PMH also significant for sleep apnea. Please see chart for additional PMH. Prior Level of Functioning No previous problems. Patient Role/employment History Employed General Observations Pt reports that today is a typical voice day, noting that her voice can sound worse than it does today. Patient/family Goals To reduce the cough as much as possible, to have comfortable breathing, to improve her voice as much as possible Evaluation Results Voice Observations COUGH/THROAT CLEAR: Intermittent brief, dry coughs. Often quiet but occasionally forceful. Locus of cough sounds consistent with upper airway. VISIBLE TENSION: Neck. PALPATION OF THYROHYOID REGION: Firm musculature with reduced thyrohyoid space and reported tenderness R>L. Pt also reporting mild tenderness of the R SCM. Voice Profile during conversation, 1 min monologue and paragraph reading Voice Quality Raspy;Hoarse;Airy Voice quality comments SPEECH: Consistent mild-moderate strain, consistent mild breathiness, and frequent intermittent mild-moderate roughness. THERAPY PROBES: Improved voice quality with semi-occludedvocal tract and diaphragmatic engagement probes. Voice quality severity rating continuum (1=Severe, 7=WNL) 5 (CAPE-V Overall Severity: 39/100) Breath control Tight;Irregular Breath Control comments REST: Pt demonstrating excessive thoracic muscle use pattern with neck involvement on cued deep inspiration. SPEECH: Inspirations for speech are shallow with poor respiratory/phonatory coordination. PROVOCATION: Pt reporting throat discomfort and a squeezing sensation in the throat with /hi/- sniff provocation probe, but no stridor is observed. EXERTION: Pt walked in the mathews for 1 minute, reporting mild SOB and tightness in the chest, as well as demonstrating shallow inspirations with a paucity of ribcage expansion. THERAPY PROBES: Pt reporting improved breathing comfort with nasal breathing (inhalation and exhalation) techniques. Breath control severity rating continuum (1=Severe, 7=WNL) 5 Voice Use / Effort Pinched / squeezed larynx;Contraction of neck muscles;Throat push Voice Use / Effort comments Pt rates her current phonatory effort for speech as 2/10 (10 is maximum phonation), noting that effort can increase the more she talks. She notes that even now, talking makes her chest feel tight. Voice use / Effort severity rating continuum (1=Severe, 7=WNL) 5 Fundamental frequency (Hz) 207.65 Hz (Centered around Ab3) Pitch /Frequency Description WNL Pitch / Frequency severity rating continuum (1=Severe, 7=WNL) 7 Volume Too quiet Volume comments Volume for conversational speech is mildly reduced but still adequate for the setting (1:1 conversation in quiet room). A whisper is normal. Soft phonation is rough. Loud phonation is mildly breathy and reduced in volume increase. Volume severity rating continuum (1=Severe, 7=WNL) 6 Neuromuscular Control WNL Neuromuscular Control severity rating continuum (1=Severe, 7=WNL) 7 Resonance Other (Laryngeal pharyngeal focus resonance) Resonance severity rating continuum (1=Severe, 7=WNL) 5 Comments Mild-moderately poor laryngeal respiratory mechanics, chronic dry cough, and dysphonia characterized by roughness, breathiness, strain, poor respiratory/phonatory coordination, reduced pitch range, reduced volume, and increased phonatory effort with tight laryngeal musculature and neck involvement during phonation. Adduction /Abduction Function Laryngeal diadokinetic speed (WNL) Laryngeal diadokinetic strength (Strained) Laryngeal diadokinetic consistency Regular Adduction / Abduction function scale Age 11 - 65, norm per sec: 5+ Vibratory Function of Vocal Folds Prolonged 'ah' at mid pitch (sec) 7.6 seconds at A3 with consistent mild breathiness and intermittent mild roughness and pitch instability Vibratory Function of Vocal Folds Scale Females 20 - 80 yrs: 10 - 22 secs Vibratory Function of Vocal Folds Comments Reduced in duration and quality Function of Lengtheners / Shorteners (CT and TA Muscles) Pitch glides Limited range (Lowest: F#3; Highest: E5) Videostroboscopy / Endoscopy Other observations Has not been completed General Therapy Interventions Planned Therapy Interventions Voice Voice Breath flow to sound flow;Throat clearing elimination plan;Relaxed breath sequence techniques;Voice quality/pitch or volume tasks;Resonant voice techniques;Larynx movement/coordination Impressions and Recommendations Communication Diagnosis Dysphonia, Irritable larynx syndrome Summary Ms. Hill presents with mild-moderately poor laryngeal respiratory mechanics, chronic dry cough, and dysphonia characterized by roughness, breathiness, strain, poor respiratory/phonatory coordination, reduced pitch range, reduced volume, and increased phonatory effort with tight laryngeal mus culature and neck involvement during phonation. Based on today's evaluation, there is likely components of vocal cord dysfunction, laryngeal hypersensitivity, and hyperfunction and/or imbalance in function of the intrinsic and extrinsic laryngeal musculature contributing to her breathing, cough, and voice symptoms, although laryngoscopy with ENT is needed for differential diagnosis of her symptoms. Recommendations A course of skilled speech therapy is recommended to train improved laryngeal respiratory mechanics to reduce vocal cord dysfunction, as well as optimize vocal technique, improve voice quality, and promote reduced laryngeal effort, fatigue, discomfort, irritation, and hypersensitivity,so that patient is able to meet her vocal demands and to improve overall quality of life. Laryngoscopy with ENT will be recommended if pt does not demonstrate adequate improvement with a trial course of skilled speech therapy. Frequency and Duration 1x/week for 6 weeks with 2-3 monthly follow-ups pending progress Prognosis Good with intervention Risks and Benefits of Treatment have been explained. Yes Patient & /or Caregiver in agreement with plan of care Yes Patient Education ZIGZAG ELASTIC ATTACHER provided education regarding evaluation findings and proposed POC. Therapy initiated today. Educational Assessment Barriers to Learning No barriers Preferred Learning Style Listening;Reading;Demonstration;Pictures / Video Voice Goals Voice Goals 1;2;3;4 Voice Goal 1 Goal Identifier Breathing Goal Description Patient will learn, implement, and demonstrate optimal laryngeal respiratory mechanics at rest and in light exertion (e.g. walking) with 90% accy given min cues from ZIGZAG ELASTIC ATTACHER, in order to promote improved breathing comfort and reduced vocal cord dysfunction. Target Date 12/11/22 Voice Goal 2 Goal Identifier Voice quality Goal Description In a 20-minute speech task, patient will demonstrate roughness, breathiness, and strain that do not exceed a level of 3 out of 10, 80% of the time by ZIGZAG ELASTIC ATTACHER judgment, so that patient is able to meet her voice quality demands. Target Date 12/11/22 Voice Goal 3 Goal Identifier Cough/Hygiene Goal Description Patient will learn, demonstrate, and implement use of at least 3 vocal hygiene strategies (e.g. hydration, alternative cough techniques, breathing techniques to arrest cough, management of triggers), given no-min cues from ZIGZAG ELASTIC ATTACHER to promote reduced laryngeal irritation and chronic cough. Target Date 12/11/22 Voice Goal 4 Goal Identifier Massage Goal Description Patient will learn, demonstrate, and implement use of circumlaryngeal massage exercises independently 1-2x per day,in order to promote reduced laryngeal discomfort, tension, and hypersensitivity. Target Date 12/11/22 Total Session Time Voice Minutes (53596) 30 Total Evaluation Time 45 Therapy Certification Certification date from 09/12/22 Certification date to 12/11/22 Medical Diagnosis Vocal cord dysfunction Thank you for the referral of this patient. Anabel Chew B.A. (Saqib desouza, [facility]ZIGZAG ELASTIC ATTACHER Speech-Language Pathologist [facility] Certificate of Vocology [facility] [phone] Anabel Chew SLP - 09/12/2022 11:59 PM CDT Images from the original note were not included. [facility] OUTPATIENT SPEECH LANGUAGE PATHOLOGY VOICE EVALUATION PLAN OF TREATMENT FOR OUTPATIENT REHABILITATION (COMPLETE FOR INITIAL CLAIMS ONLY) Patient's Last Name, First Name, M.I. Date of : 1980 Marta Hill A Provider???s Name: [facility] Onset Date: 07/13/2022 (order date) Start of Care Date: 09/12/2022 Type: ___PT __OT _X_SLP Medical Diagnosis: Vocal cord dysfunction Speech Language Pathology Diagnosis: Dysphonia, Irritable larynx syndrome Visits from SOC: 1 _ Plan of Treatment/Functional Goals: Voice Goals 1. Goal Identifier: Breathing Goal Description: Patient will learn, implement, and demonstrate optimal laryngeal respiratory mechanics at rest and in light exertion (e.g. walking) with 90% accy given min cues from ZIGZAG ELASTIC ATTACHER, in order topromote improved breathing comfort and reduced vocal cord dysfunction. Target Date: 12/11/22 2. Goal Identifier: Voice quality Goal Description: In a 20-minute speech task, patient will demonstrate roughness, breathiness, and strain that do not exceed a level of 3 out of 10, 80% of the time by ZIGZAG ELASTIC ATTACHER judgment, so that patient isable to meet her voice quality demands. Target Date: 12/11/22 3. Goal Identifier: Cough/Hygiene Goal Description: Patient will learn, demonstrate, and implement use of at least 3 vocal hygiene strategies (e.g. hydration, alternative cough techniques, breathing techniques to arrest cough, management of triggers), given no-min cues from ZIGZAG ELASTIC ATTACHER to promote reduced laryngeal irritation and chronic cough. Target Date: 12/11/22 4. Goal Identifier: Massage Goal Description: Patient will learn, demonstrate, and implement use of circumlaryngeal massage exercises independently 1-2x per day,in order to promote reduced laryngeal discomfort, tension, and hypersensitivity. Target Date: 12/11/22 Frequency and Duration: 1x/week for 6 weeks with 2-3 monthly follow-ups pending progress Anabel Chew, ZIGZAG ELASTIC ATTACHER I CERTIFY THE NEED FOR THESE SERVICES FURNISHED UNDER THIS PLAN OF TREATMENT AND WHILE UNDER MY CARE (Physician co-signature of this document indicates review and certification of the therapy plan). Certification Date From: 09/12/22 Certification Date To: 12/11/22 Referring Provider: Obdulio Barrera MD Initial Assessment See Epic Evaluation Start of Care Associated attestation - Obdulio Barrera MD - 09/14/2022 7:57 AM CDT Attestation: Physician Attestation I agree with the information in this note. Obdulio Barrera MD documented in this encounter Plan of Treatment Upcoming Encounters Date Type Specialty Care Team Description 09/26/2022 Appointment Speech Therapy Obdulio Barrera MD [address] [facility] [address] [place], [place] [address] Anabel Chew ZIGZAG ELASTIC ATTACHER [place] [id number] [facility] [address] [place], [place] [address] 09/27/2022 Therapy Visit Physical Therapy Luisana Watkins, PT [address] [place] [address] 09/29/2022 Virtual Visit Pain & Palliative Marilia Deluna, [facility] PhD [address] [place] [address] 09/30/2022 Office Visit Family Practice Aydee Burton, ADVANCED REGISTERED NURSE PSYCHIATRIC NURSE PRACTITIONER [address] [place], [place] [phone] 10/03/2022 Therapy Visit Physical Therapy Una Reardon, PT [address] [place] [phone] 10/10/2022 Hospital Encounter Surgery Lesly Celaya MD [address] [place], [place] [phone] 10/10/2022 Office Visit Surgery Lesly Celaya MD [address] [place], [place] [address] Ninoska Flowers PA-C [address] [place], [place] [phone] 10/10/2022 Surgery Surgery Lesly Celaya, EXCISION, MASSES - MD back, abdomen, [address] extremity [place], [place] [phone] 10/11/2022 Virtual Visit Pharm Clari Stoll, [address] [phone] 10/14/2022 Appointment Speech Therapy Anabel Chew, ZIGZAG ELASTIC ATTACHER [address] [place], [place] [address] 10/21/2022 Office Visit Pulmonology Obdulio Barrera MD [address] [facility] [address] [place], [place] [phone] 10/25/2022 PRE VISIT ENT Charo Burton MD Previsit [address] [place], [place] [address] 10/25/2022 Office Visit Charo Carter MD [address] [place] [phone] 10/25/2022 Office Visit ENT Provider, 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 Express Clerk 10/28/2022 Appointment Speech Therapy Anabel Chew, ZIGZAG ELASTIC ATTACHER [address] [address] 11/17/2022 Appointment Speech Therapy Anabel Chew, ZIGZAG ELASTIC ATTACHER [address] [address] 12/23/2022 Office Visit Neurology Colby Yeung MD [address] [place] [address] Scheduled Procedures Name Priority Associated Diagnoses Date/Time EXCISION, MASS, TORSO Lipoma of skin and subcuta neous 10/10/2022 7:30 AM PANEL BEATER tissue Scheduled Referrals Name Type Priority Associated Diagnoses Order S chedule Speech Therapy Referral Routine: Next Severe persistent 1 Occur rences Referral available opening asthma without starting 09/12/2022 complication until 09/12/2022 Vocal cord dysfunction documented as of this encounter Goals Goal Patient Goal Associated Recent Patient-Stated? Author Type Problems Progress Attend Speciality Care Plan Establish Care 50% No Karene rn, Appointments (08/29/2022 Mago Murray (IT ENGINEER, 3:24 PM CDT) [facility] Psychiatry, Counseling, and the Sleep Clinic) Note: Formatting of this note is differe nt from the original. Barriers: Appointment availability. Strengths: Recognition of need, Care Stoker Erector And Servicer rdination involvement. Patient expressed understanding of goal: [...] on: 08/16/2022 9:45 AM Lesly Celaya MD [facility] [place] To address painful lumps in my abdomin [...] as of this encounter Visit Diagnoses Diagnosis Vocal cord dysfunction - Primary Other diseases of vocal cords Severe persistent asthma without complic ation Lipoma of skin and subcutaneous tissue Lipoma of other skin and subcutaneous ti ssue documented in this encounter Additional Health Concerns Problem Noted Date Establish Care 07/05/2022 Chronic Pain is not self-managed 07/05/2022 Assessment Noted Time PHQ-9 Depression Total Score: 17 09/02/2022 2:11 PM CD T documented as of this encounter Care Teams Textile Engraver Relationship Specialty Start Date End Date Aydee Butron, PCP - General Nurse Practitioner - 05/17/21 ADVANCED REGISTERED NURSE PSYCHIATRIC NURSE PRACTITIONER Family [address] [place], [place] [address] Aydee Burton, Assigned PCP 04/28/21 ADVANCED REGISTERED NURSE [facility] [address] [place], [place] [phone] Louisa Hood, Assigned Neuroscience 07/11/21 ADVANCED REGISTERED NURSE PSYCHIATRIC NURSE PRACTITIONER Provider [address] [place] [address] [place], Assigned Sleep 08/01/21 Angel Turcios, Provider [address] [place] [address] Lesly Celaya MD Assigned Surgical 09/05/[address] [facility] [place] [address] Tawana Patel [facility] 09/30/21 Worker Ramses Mcpherson Assigned OBGYN 11/07/21 MD On[place] Provider [address] [place] [address] Obdulio Barrera MD Critical Care 01/24/22 MD [address] [facility] [address] [place] [address] Obdulio Barrera, Assigned Pulmonology 02/06/22 Provider [address] [facility] [address] [place], [place] [phone] Lesvia Stanley, GHADA Cardiac Rehabilitation 03/03/22 03/03/23 [facility] Therapist [address] [place], [place] [phone] Marilia Deluna, PhD Assigned Behavioral 02/20/22 [address] [facility] Provider [place], [place] [address] Niyah Decker, [facility] Pharmacist Pharmacist 03/07/22 [address] [facility] [address] [place], [place] [address] Lesvia Stanley, GHADA Cardiac Rehabilitation 03/17/22 03/17/23 [facility] Therapist [address] [address] Delia Avila, Pharmacist Pharmacist 06/07/22 [facility] [address] [place] [address] Mago Swift [facility] Lead Insurance Examining Clerk Tablet Coater - 08/05/21 Clinical Leela Jarvis [facility] Pharmacist 07/26/22 05/15/23 [address] [facility] [place] [address] Niyah Decker, [facility] Assigned MTM 08/10/22 [address] [facility] [address] Pharmacist [place], [place] [phone] documented as of this encounter
--- OUTSIDE RECORDS SUMMARY | 2022-09-21 03:57 | XMS_ITS | Encounter Summary ---
:1980 Author Organization [facility] Address [address] [place] [address] Care Team Providers Name Role Phone Aydee Burton LAMP SHADE ASSEMBLER ASSOCIATE PROFESSOR OF MEDIA ARTS Primary Care Provider [phone] Aydee Burton APRN ASSOCIATE PROFESSOR OF MEDIA ARTS Unavailable [phone] Louisa Hood LAMP SHADE ASSEMBLER ASSOCIATE PROFESSOR OF MEDIA ARTS Unavailable [phone] Angel Hannah MD Unavailable Lesly Celaya MD Unavailable Tawana Patel MA Unavailable Unavailable Ramses Mcpherson MD Unavailable [phone] Obdulio Barrera MD Unavailable [phone] Obdulio Barrera MD Unavailable [phone] Lesvia Stanley Unavailable Marilia Deluna PhD Unavailable Niyah Decker [facility] Unavailable Lesvia Stanley Unavailable Delia Avila [facility] Unavailable [phone] JamisonMago [facility] Unavailable Leela Jarvis [facility] Unavailable Niyah Decker [facility] Unavailable Reason for Visit Reason Onset Date Comments Facial Pain 09/15/2022 Encounter Details Date Type Department Care Team Description 09/15/2022 Telephone M [facility] Aydee Burton, Facial Pain Bro[place] LAMP SHADE ASSEMBLER ASSOCIATE PROFESSOR OF MEDIA ARTS 4151 [facility] [address] [address] [place] [address] [phone] Social History Tobacco Use Types Packs/Day Years [...] How often do you attend muslim or muslim services? Never 08/05/2021 Do you [...] place to sleep or slept in a halfway (including now)? Sex Assigned at Date Recorded Female 11/09/2021 7:53 PM CLINICAL NURSING COORDINATOR COVID-19 Exposure Response Date Recorded In the last 10 days, have you been in contact with No / Unsu re 09/15/2022 11:46 AM CDT someone who was confirmed or suspected to have Coronavirus/COVID-19? documented as of this encounter Miscellaneous Notes Telephone Encounter - Mayda Stephens RN - 09/15/2022 12:41 PM CDT Patient calling back. Currently at [facility] urgent care and states the wait is 4 hrs. She will contact neuro and/or pain clinic for their recommendation. Telephone Encounter - Aydee Burton APRN CNP - 09/15/2022 11:04 AM CDT Images from the original note were not included. Agree with advise. TARA Spivey- Telephone Encounter - Ciara Montejo RN - 09/15/2022 9:47 AM CDT Patient calling about left sided facial and neck pain I am looking for something to help Ongoing for years but worse the last 2 days. Prior injections but they don't help after a month Pain management -every 3 months 08/29/22 Neurologist Facial pain-moderate to severe stabbing and burning that is constant No swelling on face or eye No skin color changes on face No numbness or tingling Neck pain-moderate stabbing and burning that is constant a little headache today forehead on the left side Denied cold symptoms or any other symptoms. Can eat and drink well. Taking Ibuprofen, Tylenol, robaxin and other scheduled meds . not sure how often she has taken Last ibuprofen at 8 am Per patient Robaxin works for 45 minutes Advised can go UC for severe pain Advised can call pain clinic and or neurology for advise too Declined to set up an in person appointment at this time. E visit-advised provider Ciara Mg RN [facility] Triage documented in this encounter Plan of Treatment Upcoming Encounters Date Type Specialty Care Team Description 09/26/2022 Appointment Speech Therapy Obdulio Barrera MD 420 [facility] 276 [place], [place] [address] Anabel Chew, POLICE LIEUTENANT [address] [place] 367876 [facility] 396 [place] [address] 09/27/2022 Therapy Visit Physical Therapy Luisana Watkins, PT 2155 [place] [address] 09/29/2022 Virtual Visit Pain & Palliative Marilia Deluna, [facility] PhD [address] [place] [address] 09/30/2022 Office Visit Family Practice Aydee Burton, LAMP SHADE ASSEMBLER ASSOCIATE PROFESSOR OF MEDIA ARTS 4151 [place], [place] [address]992 10/03/2022 Therapy Visit Physical Therapy Una Reardon, PT 2155 [place] [phone] 10/10/2022 Hospital Encounter Surgery Lesly Celaya MD [address] [place], [place] [address] 10/10/2022 Office Visit Surgery Lesly Celaya MD [address] [place] [address] Ninoska Flowers PA-C [address] [facility] 300 [place], [place] [phone] 10/10/2022 Surgery Surgery Lesly Celaya, EXCISION, MASSES - MD back, abdomen, [address] extremity [place], [place] [address] 10/11/2022 Virtual Visit Clari Su, [facility] [address] [place] [id number] [place] [address] 10/14/2022 Appointment Speech Therapy Anabel Chew, POLICE LIEUTENANT PATROL [address] 537685 10/21/2022 Office Visit Pulmonology Obdulio Barrera MD [address] [address]46[address] 10/25/2022 PRE VISIT ENT Charo Burton MD Previsit [address] [place] [address] 10/25/2022 Office Visit ENT Charo Burton MD [address] [place] [address] 814215 10/25/2022 Office Visit ENT Provider, 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 Telemetry Monitor 10/28/2022 Appointment Speech Therapy Anabel Chew SLP [address] 742525 11/17/2022 Appointment Speech Therapy Anabel Chew SLP [address] 405855 12/23/2022 Office Visit Neurology Colby Yeung MD [address] [place] [address] Scheduled Procedures Name Priority Associated Diagnoses Date/Time EXCISION, MASS, TORSO Lipoma of skin and subcuta neous 10/10/2022 7:30 AM CLINICAL NURSING COORDINATOR tissue documented as of this encounter Goals Goal Patient Goal Associated Recent Patient-Stated? Author Type Problems Progress Attend Speciality Care Plan Establish Care 50% Claudia Tee rn, Appointments (08/29/2022 Mago Murray, (ROOF PLUMBER, 3:24 PM CDT) [facility] Psychiatry, Counseling, and the Sleep Clinic) Note: Formatting of this note is differe nt from the original. Barriers: Appointment availability. Strengths: Recognition of need, Care Agricultural Economics Professor rdination involvement. Patient expressed understanding of goal: [...] on: 08/16/2022 9:45 AM Lesly Celaya MD [facility] [place] To address painful lumps in my abdomin [...] documented as of this encounter Care Teams Tobacco Checkout Clerk Relationship Specialty Start Date End Date Aydee Burton, PCP - General Nurse Practitioner - 05/17/21 LAMP SHADE ASSEMBLER ASSOCIATE PROFESSOR OF MEDIA ARTS Family [address] [place] [address] [phone] Aydee Burton, Assigned PCP 04/28/21 LAMP SHADE ASSEMBLER ASSOCIATE PROFESSOR OF MEDIA ARTS [address] [place], [place] [address] Louisa Hood, Assigned Neuroscience 07/11/21 LAMP SHADE ASSEMBLER ASSOCIATE PROFESSOR OF MEDIA ARTS Provider [address] [place], [place] [address] [place], Assigned Sleep 08/01/21 Angel Turcios, Provider [address] [place], [place] [address] Lesly Celaya MD Assigned Surgical 09/05/21 [address] Provider [place], [place] [phone] Tawana Patel MA [facility] 09/30/21 Worker Ramses Mcpherson Assigned OBGYN 11/07/21 MD Onesimo Provider [address] [place] [address] Obdulio Barrera MD Critical Care 01/24/[address] [place] [address] 276 [place], [place] [address]955 Obdulio Barrera, Assigned Pulmonology 02/06/22 MD Provider [address] [place] [address] 276 [place], [place] [address] Lesvia Stanley, GHADA Cardiac Rehabilitation 03/03/22 03/03/23 [facility] Therapist [address] [place] [address] Marilia eDluna, PhD Assigned Behavioral 02/20/22 [address] [facility] [place] [address] Niyah Decker, [facility] Pharmacist Pharmacist 03/07/[address] [place] [address] 812 [place] [address] Lesvia Stanley, GHADA Cardiac Rehabilitation 03/17/22 03/17/23 [facility] Therapist [address] [id number] Delia Avila, Pharmacist Pharmacist 06/07/[address] [facility] 909 [place], [place] [address] Mago Swift, [facility] Lead Hot Strip Mill Supervisor Wax Ball Knock Out Worker - 08/05/21 Clinical Leela Jarvis [facility] Pharmacist 07/26/22 05/15/23 [address] [facility] [place] [address] Niyah Decker, [facility] Assigned MTM 08/10/[address] [place] [address] 812 [place] [address] documented as of this encounter
--- OUTSIDE RECORDS SUMMARY | 2022-09-21 03:58 | XMS_ITS | Encounter Summary ---
:1980 Author Organization [facility] Address [address] [place] [address] Care Team Providers Name Role Phone Aydee Burton HOUSE SHORER NURSE QUALITY Primary Care Provider [phone] Aydee Burton APRN NURSE QUALITY Unavailable [phone] Louisa Hood HOUSE SHORER NURSE QUALITY Unavailable [phone] Angel Hannah MD Unavailable Lesly Celaya MD Unavailable Tawana Patel MA Unavailable Unavailable Ramses Mcpherson MD Unavailable [phone] Obdulio Barrera MD Unavailable [phone] Obdulio Barrera MD Unavailable [phone] Lesvia Stanley Unavailable Marilia Deluna PhD Unavailable Niyah Decker [facility] Unavailable Lesvia Stanley Unavailable Delia Avila [facility] Unavailable [phone] JamisonMago [facility] Unavailable Leela Jarvis [facility] Unavailable Niyah Decker [facility] Unavailable Encounter Details Date Type Department Care Team Description 08/25/2022 Travel Social History Tobacco Use Types Packs/Day [...] er 08/05/2021 How often do you attend baptism or jewish services? Never 08/05/2021 Do you belong to any clubs or organizations such as baptism N o 08/05/2021 groups, unions, fraternal or [...] at Date Recorded Female 11/09/2021 7:53 PM VAMP MARKER COVID-19 Exposure Response Date Recorded In the last 10 days, have you been in contact with No / Unsu re 08/25/2022 2:42 PM CDT someone who was confirmed or suspected to have Coronavirus/COVID-19? documented as of this encounter Plan of Treatment Upcoming Encounters Date Type Specialty Care Team Description 09/26/2022 Appointment Speech Therapy Obdulio Barrera MD 420 [facility] 276 [place], [place] [address] Anabel Chew, LINUX UNIX SYSTEM ADMINISTRATOR [facility] 516 [facility] 396 [place] [address] 09/27/2022 Therapy Visit Physical Therapy Luisana Watkins, PT 2[address] [place] [address] 09/29/2022 Virtual Visit Pain & Palliative Marilia Deluna, [facility] PhD [address] [place] [address] 09/30/2022 Office Visit Family Practice Aydee Burton, HOUSE SHORER NURSE QUALITY [address] [place] [address] [phone] 10/03/2022 Therapy Visit Physical Therapy Una Reardon, PT [address] [place] [phone] 10/10/2022 Hospital Encounter Surgery Lesly Celaya MD [address] [place], [place] [address] 10/10/2022 Office Visit Surgery Lesly Celaya MD [address] [place], [place] [address] Ninoska Flowers PA-Ynes [address] [facility] 300 [place] [address] 10/10/2022 Surgery Surgery Lesly Celaya, EXCISION, MASSES - back, abdomen, [address] right lower [facility] extremity [place], [place] [phone] 10/11/2022 Virtual Visit Clari Su, [facility] [address] [place] [address] 10/14/2022 Appointment Speech Therapy Anabel Chew, LINUX UNIX SYSTEM ADMINISTRATOR [address] [address] 10/21/2022 Office Visit Pulmonology Obdulio Barrera MD 420 [facility] 276 [place], [place] [address] 10/25/2022 PRE VISIT ENT Charo Burton MD Previsit [address] [place] [address]8905 10/25/2022 Office Visit ENT Charo Burton MD 9 [place], [place] [address] 10/25/2022 Office Visit ENT Provider, 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 Overedge Sewer 10/28/2022 Appointment Speech Therapy Anabel Chew, LINUX UNIX SYSTEM ADMINISTRATOR [address] 9858[address] 11/17/2022 Appointment Speech Therapy Anabel Chew SLP [address] 153445 12/23/2022 Office Visit Neurology Colby Yeung MD [address] [address] Scheduled Procedures Name Priority Associated Diagnoses Date/Time EXCISION, MASS, TORSO Lipoma of skin and subcuta neous 10/10/2022 7:30 AM VAMP MARKER tissue documented as of this encounter Goals Goal Patient Goal Associated Recent Patient-Stated? Author Type Problems Progress Attend Speciality Care Plan Establish Care 50% Claudia Tee rn, Appointments (08/29/2022 Mago Murray, (COMMERCIAL LEASING MANAGER, 3:24 PM CDT) [facility] Psychiatry, Counseling, and the Sleep Clinic) Note: Formatting of this note is differe nt from the original. Barriers: Appointment availability. Strengths: Recognition of need, Care Foundry Hand rdination involvement. Patient expressed understanding of goal: [...] on: 08/16/2022 9:45 AM Lesly Celaya MD [facility] [place] To address painful lumps in my abdomin [...] documented as of this encounter Care Teams Pool Installer Relationship Specialty Start Date End Date Aydee Burton, PCP - General Nurse Practitioner - 05/17/21 HOUSE SHORER NURSE QUALITY Family [address] [place], [place] [phone] Aydee Burton, Assigned PCP 04/28/21 HOUSE SHORER NURSE QUALITY 4[address] [place] [address] Louisa Hood, Assigned Neuroscience 07/11/21 HOUSE SHORER NURSE QUALITY Provider [address] [place], [place] [phone] [place], Assigned Sleep 08/01/21 Angel Turcios, Provider [address] [place], [place] [phone] Lesly Celaya MD Assigned Surgical 09/05/21 [address] Provider [place], [place] [phone] Tawana Patel MA [facility] 09/30/21 Worker Ramses Mcpherson Assigned OBGYN 11/07/21 MD Onesimo Provider [address] [place], [place] [phone] Obdulio Barrera MD Critical Care 01/24/22 420 [facility] 276 [place], [place] [phone] Obdulio Barrera, Assigned Pulmonology 02/06/22 MD Provider 420 [facility] 276 [place], [place] [address] Lesvia Stanley, GHADA Cardiac Rehabilitation 03/03/22 03/03/23 [facility] Therapist [address] [place] [address] Marilia Deluna, PhD Assigned Behavioral 02/20/22 [address] [facility] Health Provider [place], [place] [address] Niyah Decker, [facility] Pharmacist Pharmacist 03/07/[address] [place] [address] 812 [place], [place] [address] Lesvia Stanley, GHADA Cardiac Rehabilitation 03/17/22 03/17/23 [facility] Therapist [address] [place] [address] Delia Avila, Pharmacist Pharmacist 06/07/22 [facility] [address] [place] [address] 364705 Mago Swift, [facility] Lead Marking Room Supervisor Slot Floor Person - 08/05/21 Clinical Leela Jarvis [facility] Pharmacist 07/26/22 05/15/23 [address] [facility] [address] [place], [place] [phone] Niyah Decker, [facility] Assigned MTM 08/10/22 420 [facility] 812 Pharmacist [place], [place] [address] documented as of this encounter
--- OUTSIDE RECORDS SUMMARY | 2022-09-21 03:58 | XMS_ITS | Encounter Summary ---
:1980 Author Organization [facility] Address [address] [place] [address] Care Team Providers Name Role Phone Aydee Burton RESIDENT INSPECTOR OPTOMETRIC TECHNICIAN Primary Care Provider [phone] Ayede Burton APRN OPTOMETRIC TECHNICIAN Unavailable [phone] Louisa Hood RESIDENT INSPECTOR OPTOMETRIC TECHNICIAN Unavailable [phone] Angel Hannah MD Unavailable Lesly Celaya MD Unavailable Tawana Patel MA Unavailable Unavailable Ramses Mcpherson MD Unavailable Obdulio Barrera MD Unavailable [phone] Obdulio Barrera MD Unavailable [phone] Lesvia Stanley Unavailable Marilia Deluna PhD Unavailable Niyah Decker [facility] Unavailable Lesvia Stanley Unavailable Delia Avila [facility] Unavailable [phone] JamisonMago [facility] Unavailable Leela Jarvis [facility] Unavailable Niyah Decker [facility] Unavailable Encounter Details Date Type Department Care Team Description 08/15/2022 Travel Social History Tobacco Use Types Packs/Day [...] How often do you attend sabianist or lutheran services? Never 08/05/2021 Do you [...] place to sleep or slept in a alf (including now)? Sex Assigned at Date Recorded Female 11/09/2021 7:53 PM STAND GRINDER COVID-19 Exposure Response Date Recorded In the last 10 days, have you been in contact Unable to asse ss 08/15/2022 8:31 AM CDT with someone who was confirmed or suspected to have Coronavirus/COVID-19? documented as of this encounter Plan of Treatment Upcoming Encounters Date Type Specialty Care Team Description 09/26/2022 Appointment Speech Therapy Obdulio Barrera MD 420 [facility] 276 [place], [place] [address] Anabel Chew, DAYCARE PROVIDER [place] [phone] [facility] 396 [place] [address] 09/27/2022 Therapy Visit Physical Therapy Luisana Watkins, PT [address] [place] [address] 09/29/2022 Virtual Visit Pain & Palliative Marilia Deluna, [facility] PhD [address] [place] [address] 09/30/2022 Office Visit Family Practice Aydee Burton, RESIDENT INSPECTOR OPTOMETRIC TECHNICIAN [address] [place] [address] [phone] 10/03/2022 Therapy Visit Physical Therapy Una Reardon, PT [address] [place] [phone] 10/10/2022 Hospital Encounter Surgery Lesly Celaya MD [address] [place], [place] [address] 10/10/2022 Office Visit Surgery Lesly Celaya MD [address] [place], [place] [address] Ninoska Flowers PA-Ynes [address] [facility] 300 [place] [address] 10/10/2022 Surgery Surgery Lesly Celaya, EXCISION, MASSES - MD back, abdomen, [address] right lower [facility] extremity [place], [place] [phone] 10/11/2022 Virtual Visit Clari Su, [facility] [address] [place] [address] 10/14/2022 Appointment Speech Therapy Anabel Chew, DAYCARE PROVIDER [address] [address] 10/21/2022 Office Visit Pulmonology Obdulio Barrera MD [address] 6837[address] 10/25/2022 PRE VISIT ENT Charo Burton MD Previsit [address] [place] [address]84885 10/25/2022 Office Visit ENT Charo Burton MD 909 [place], [place] [address] 10/25/2022 Office Visit ENT Provider, 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 Coal Crusher Operator 10/28/2022 Appointment Speech Therapy Anabel Chew, CELINE [address] 2815[address] 11/17/2022 Appointment Speech Therapy Anabel Chew, DAYCARE PROVIDER [address] [address]30[address] 12/23/2022 Office Visit Neurology Colby Yeung MD [address] [address] Scheduled Procedures Name Priority Associated Diagnoses Date/Time EXCISION, MASS, TORSO Lipoma of skin and subcuta neous 10/10/2022 7:30 AM STAND GRINDER tissue documented as of this encounter Goals Goal Patient Goal Associated Recent Patient-Stated? Author Type Problems Progress Attend Speciality Care Plan Establish Care 50% Claudia Tee rn, Appointments (08/29/2022 Mago Murray, (SENIOR MAINTENANCE MECHANIC, 3:24 PM CDT) [facility] Psychiatry, Counseling, and the Sleep Clinic) Note: Formatting of this note is differe nt from the original. Barriers: Appointment availability. Strengths: Recognition of need, Care Lead Warehouse Associate rdination involvement. Patient expressed understanding of goal: [...] on: 08/16/2022 9:45 AM Lesly Celaya MD [facility] Surgery [facility] [place] To address painful lumps in my abdomin [...] documented as of this encounter Care Teams Mold Yard Supervisor Relationship Specialty Start Date End Date Aydee Burton, PCP - General Nurse Practitioner - 05/17/21 RESIDENT INSPECTOR OPTOMETRIC TECHNICIAN Family [address] [place], [place] [phone] Aydee Burton, Assigned PCP 04/28/21 RESIDENT INSPECTOR OPTOMETRIC TECHNICIAN [address] [place] [address] Louisa Hood, Assigned Neuroscience 07/11/21 RESIDENT INSPECTOR OPTOMETRIC TECHNICIAN Provider 500 [place], [place] [phone] [place], Assigned Sleep 08/01/21 Angel Turcios, Provider [address] [place], [place] [phone] Lesly Celaya MD Assigned Surgical 09/05/21 [address] Provider [place], [place] [phone] Tawana Patel MA Community Health 09/30/21 Worker Ramses Mcpherson Assigned OBGYN 11/07/21 MD Onesimo Provider [address] [place], [place] [phone] Obdulio Barrera MD Critical Care 01/24/22 420 [facility] 276 [place] [address] Obdulio Barrera, Assigned Pulmonology 02/06/22 MD Provider 420 [facility] 276 [place], [place] [address] Lesvia Stanley, GHADA Cardiac Rehabilitation 03/03/22 03/03/23 [facility] Therapist [address] [address] Marilia Deluna, PhD Assigned Behavioral 02/20/22 [address] [facility] [address] Niyah Decker, [facility] Pharmacist Pharmacist 03/07/[address] [place] [address] 812 [place], [place] [address]285 Lesvia Stanley, GHADA Cardiac Rehabilitation 03/17/22 03/17/23 [facility] Therapist [address] [place] [address] Delia Avila, Pharmacist Pharmacist 06/07/22 [facility] [address] [place] [address] Mago Swift, [facility] Lead Gum Machine Operator Training Developer - 08/05/21 Clinical Leela Jarvis [facility] Pharmacist 07/26/22 05/15/[address] [facility]5 [facility] [address] [place], [place] [phone] Niyah Decker, [facility] Assigned MTM 08/10/22 420 [facility] 812 Pharmacist [place], [place] [address] documented as of this encounter
--- OUTSIDE RECORDS SUMMARY | 2022-09-21 03:58 | XMS_ITS | Encounter Summary ---
:1980 Author Organization [facility] Address [address] [place] [address] Care Team Providers Name Role Phone Aydee Burton SENIOR WRITER FERTILIZING MACHINE OPERATOR Primary Care Provider Aydee Burton APRN FERTILIZING MACHINE OPERATOR Unavailable [phone] Louisa Hood SENIOR WRITER FERTILIZING MACHINE OPERATOR Unavailable [phone] Angel Hannah MD Unavailable Lesly Celaya MD Unavailable Tawana Patel MA Unavailable Unavailable Ramses Mcpherson MD Unavailable [phone] Obdulio Barrera MD Unavailable [phone] Obdulio Barrera MD Unavailable [phone] Lesvia Stanley Unavailable Marilia Deluna PhD Unavailable Niyah Decker [facility] Unavailable Lesvia Stanley Unavailable Delia Avila [facility] Unavailable [phone] Mago Swift [facility] Unavailable Leela Jarvis [facility] Unavailable Niyah Decker Vania [facility] Unavailable Reason for Visit Rehab Therapy Physical Therapy (Routine: Next available opening) - Pending Review Specialty Diagnoses / Procedures Referred By Contact Refer red To Contact Diagnoses Tension headache Cervicogenic headache Cervicalgia Colby Yeung MD [address] [place] [address] Referral ID Status Reason Start Date Expiration Date Visits V isits Requested Authorized [id number] Pending 06/30/2022 06/30/2023 1 1 Review Encounter Details Date Type Department Care Team Description 08/12/2022 [facility] Una Murray, PT Dx[facility] [address] [address] [address] [place] [address] (Work) [phone] Social History Tobacco Use Types Packs/Day Years [...] er 08/05/2021 How often do you attend pentecostalism or jew services? Never 08/05/2021 Do you belong to any clubs or organizations such as pentecostalism N o 08/05/2021 groups, unions, fraternal or [...] at Date Recorded Female 11/09/2021 7:53 PM CONGRESSIONAL ASSISTANT COVID-19 Exposure Response Date Recorded In the last 10 days, have you been in contact with No / Unsu re 08/12/2022 2:34 PM CDT someone who was confirmed or suspected to have Coronavirus/COVID-19? documented as of this encounter Plan of Treatment Upcoming Encounters Date Type Specialty Care Team Description 09/26/2022 Appointment Speech Therapy Obdulio Barrera MD 420 [facility] 276 [place], [place] [address] Anabel Chew, AUDIO RECORDING ENGINEER [address] [place], [place] [address] 09/27/2022 Therapy Visit Physical Therapy Luisana Watkins, PT 2155 [place] [address] 09/29/2022 Virtual Visit Pain & Palliative Marilia Deluna, Care PhD [address] [place] [address] 09/30/2022 Office Visit Family Practice Aydee Burton, SENIOR WRITER FERTILIZING MACHINE OPERATOR [address] [place] [address] [id number] 10/03/2022 Therapy Visit Physical Therapy Una Reardon, PT 2155 [place] [phone] 10/10/2022 Hospital Encounter Surgery Lesly Celaya MD [address] [place], [place] [address] 10/10/2022 Office Visit Surgery Lesly Celaya MD [address] [place], [place] [address] Ninoska Flowers PA-C [address] [place], [place] [address] 10/10/2022 Surgery Surgery Lesly Celaya, EXCISION, MASSES - MD back, abdomen, [address] extremity [place], [place] [phone] 10/11/2022 Virtual Visit Pharm Bryce Ruiz, Clari Banks, [address] 9[address] 10/14/2022 Appointment Speech Therapy Anabel Chew, AUDIO RECORDING ENGINEER [facility] 516 [facility] 396 [place], [place] [address] 10/21/2022 Office Visit Pulmonology Obdulio Barrera MD 420 [facility] 276 [place], [place] [address] 10/25/2022 PRE VISIT ENT Charo Burton MD Previsit [address] [place] [address] [phone] 10/25/2022 Office Visit Charo Carter MD [address] [place] [phone] 10/25/2022 Office Visit ENT Provider, 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 Waterway Traffic Checker 10/28/2022 Appointment Speech Therapy Anabel Chew SLP [address] [place] [address] 11/17/2022 Appointment Speech Therapy Anabel Chew SLP [address] [address] 12/23/2022 Office Visit Neurology Colby Yeung MD [address] [place] [address] Scheduled Procedures Name Priority Associated Diagnoses Date/Time EXCISION, MASS, TORSO Lipoma of skin and subcuta neous 10/10/2022 7:30 AM CONGRESSIONAL ASSISTANT tissue documented as of this encounter Goals Goal Patient Goal Associated Recent Patient-Stated? Author Type Problems Progress Attend Speciality Care Plan Establish Care 50% No Randal rn, Appointments (08/29/2022 Mago Murray, (CONVEYOR SYSTEM DISPATCHER, 3:24 PM CDT) [facility] Psychiatry, Counseling, and the Sleep Clinic) Note: Formatting of this note is differe nt from the original. Barriers: Appointment availability. Strengths: Recognition of need, Care Trim And Burr Operator rdination involvement. Patient expressed understanding of [...] on: 08/16/2022 9:45 AM Lesly Celaya MD [facility] Surgery [facility] To address painful lumps in my [...] Name Priority Date/Time Associated Diagnosis Comme nts WI MANUAL THERAPY, EA 15 Routine 08/12/2022 3:05 PM CDT Neck p ain MIN WI THERAPEUTIC Routine 08/12/2022 3:05 PM CDT Neck pain EXERCISES. EA 15 MIN [...] documented as of this encounter Care Teams Director Of Physical Therapy Relationship Specialty Start Date End Date Aydee Burton, PCP - General Nurse Practitioner - 05/17/21 SENIOR WRITER [facility] 3361 [place] [address] Aydee Burton, Assigned PCP 04/28/21 SENIOR WRITER [facility] 8[address] [place], [place] [address] Louisa Hood, Assigned Neuroscience 07/11/21 SENIOR WRITER FERTILIZING MACHINE OPERATOR Provider 500 [place], [place] [address] [place], Assigned Sleep 08/01/21 Angel Turcios, Provider [address] [place], [place] [address] Lesly Celaya MD Assigned Surgical 09/05/21 [address] [facility] Provider [place], [place] [address] Tawana Patel [facility] 09/30/21 Worker Ramses Mcpherson Assigned OBGYN 11/07/21 MD Onesimo Provider [address] [place], [place] [address] Obdulio Barrera MD Critical Care 01/24/[address] [place] [address] 276 [place] [address] Obdulio Barrera, Assigned Pulmonology 02/06/[address] [place] [address] 276 [place], [place] [address] Lesvia Stanley EP Cardiac Rehabilitation 03/03/22 03/03/23 [facility] Therapist [address] [place] [place] [address] Marilia Deluna, PhD Assigned Behavioral 02/20/22 [address] [facility] Provider [place], [place] [address] Niyah Decker, [facility] Pharmacist Pharmacist 03/07/[address] [place] [address] 812 [place] [address] Lesvia Stanley EP Cardiac Rehabilitation 03/17/22 03/17/23 [facility] Therapist [address] [phone] Delia Avila, Pharmacist Pharmacist 06/07/22 [facility] 909 [place] [address] Mago Swift, [facility] Lead Senior Information Security Analyst Spike Maker - 08/05/21 Clinical Leela Jarvis [facility] Pharmacist 07/26/22 05/15/23 [address] [facility] [address] [place] [phone] Niyah Decker, [facility] Assigned MTM 08/10/22 420 [facility] 812 [place] [address] documented as of this encounter
--- OUTSIDE RECORDS SUMMARY | 2022-09-21 03:58 | XMS_ITS | Encounter Summary ---
:1980 Author Organization [facility] Address [address] [place] [address] Care Team Providers Name Role Phone Aydee Burton HUC ULTRASONIC HAND SOLDERER Primary Care Provider Aydee Burton APRN ULTRASONIC HAND SOLDERER Unavailable [phone] Louisa Hood HUC ULTRASONIC HAND SOLDERER Unavailable [phone] Angel Hannah MD Unavailable Lesly Celaya MD Unavailable Tawana Patel MA Unavailable Unavailable Ramses Mcpherson MD Unavailable [phone] Obdulio Barrera MD Unavailable [phone] Obdulio Barrera MD Unavailable [phone] Lesvia Stanley Unavailable Marilia Deluna PhD Unavailable Niyah Decker [facility] Unavailable Lesvia Stanley Unavailable Delia Avila [facility] Unavailable [phone] JamisonMago [facility] Unavailable Leela Jarvis [facility] Unavailable Niyah Decker [facility] Unavailable Encounter Details Date Type Department Care Team Description 08/10/2022 Travel Social History Tobacco Use Types Packs/Day [...] er 08/05/2021 How often do you attend denominational or catholic services? Never 08/05/2021 Do you belong to any clubs or organizations such as denominational N o 08/05/2021 groups, unions, fraternal or [...] place to sleep or slept in a care home (including now)? Sex Assigned at Date Recorded Female 11/09/2021 7:53 PM REMOTE SENSING ADVISOR COVID-19 Exposure Response Date Recorded In the last 10 days, have you been in contact with No / Unsu re 08/10/2022 1:17 PM CDT someone who was confirmed or suspected to have Coronavirus/COVID-19? documented as of this encounter Plan of Treatment Upcoming Encounters Date Type Specialty Care Team Description 09/26/2022 Appointment Speech Therapy Obdulio Barrera MD 420 [facility] 276 [place], [place] [address] Anabel Chew, DEPUTY BUILDING GUARD [facility] 516 [facility] 396 [place] [address] 09/27/2022 Therapy Visit Physical Therapy Luisana Watkins, PT 2155 [place] [address] 09/29/2022 Virtual Visit Pain & Palliative Marilia Deluna, [facility] PhD [address] [place] [address] 09/30/2022 Office Visit Family Practice Aydee Burton, HUC ULTRASONIC HAND SOLDERER [address] [place] [address] [phone] 10/03/2022 Therapy Visit Physical Therapy Una Reardon, PT 2155 [place] [phone] 10/10/2022 Hospital Encounter Surgery Lesly Celaya MD [address] [place], [place] [address] 10/10/2022 Office Visit Surgery Lesly Celaya MD [address] [place], [place] [address] Ninoska Flowers PA-Ynes [address] [facility] 300 [place] [address] 10/10/2022 Surgery Surgery Lesly Celaya, EXCISION, MASSES - back, abdomen, [address] right lower [facility] extremity [place], [place] [phone] 10/11/2022 Virtual Visit Clari Su, [facility] [address] [place] [address] 10/14/2022 Appointment Speech Therapy Anabel Chew, DEPUTY BUILDING GUARD [address] [address] 10/21/2022 Office Visit Pulmonology Obdulio Barrera MD 420 [facility] 276 [place], [place] [address] 10/25/2022 PRE VISIT ENT Charo Burton MD Previsit [address] [place] [address]34395 10/25/2022 Office Visit ENT Charo Burton MD 9 [place], [place] [address] 10/25/2022 Office Visit ENT Provider, 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 Supervisor [facility] 10/28/2022 Appointment Speech Therapy Anabel Chew, DEPUTY BUILDING GUARD [address] 8[address]65 11/17/2022 Appointment Speech Therapy Anabel Chew SLP [address] 432035 12/23/2022 Office Visit Neurology Colby Yeung MD [address] [address] Scheduled Procedures Name Priority Associated Diagnoses Date/Time EXCISION, MASS, TORSO Lipoma of skin and subcuta neous 10/10/2022 7:30 AM REMOTE SENSING ADVISOR tissue documented as of this encounter Goals Goal Patient Goal Associated Recent Patient-Stated? Author Type Problems Progress Attend Speciality Care Plan Establish Care 50% Claudia Tee rn, Appointments (08/29/2022 Mago Murray, (COLLATERAL ANALYST, 3:24 PM CDT) [facility] Psychiatry, Counseling, and the Sleep Clinic) Note: Formatting of this note is differe nt from the original. Barriers: Appointment availability. Strengths: Recognition of need, Care Detail Drafter rdination involvement. Patient expressed understanding of goal: [...] 08/16/2022 9:45 AM Lesly Celaya MD [facility] To address painful lumps in my abdomin [...] documented as of this encounter Care Teams Quarter Inspector Relationship Specialty Start Date End Date Aydee Burton, PCP - General Nurse Practitioner - 05/17/21 HUC ULTRASONIC HAND SOLDERER Family [address] [place], [place] [phone] Aydee Burton, Assigned PCP 04/28/21 HUC ULTRASONIC HAND SOLDERER 4[address] [place] [address] Louisa Hood, Assigned Neuroscience 07/11/21 HUC ULTRASONIC HAND SOLDERER Provider 500 [place], [place] [phone] [place], Assigned Sleep 08/01/21 Angel Turcios, Provider [address] [place], [place] [phone] Lesly Celaya MD Assigned Surgical 09/05/21 [address] Provider [place], [place] [phone] Tawana Patel MA [facility] 09/30/21 Worker Ramses Mcpherson Assigned OBGYN 11/07/21 MD Onesimo Provider [address] [place], [place] [phone] Obdulio Barrera MD Critical Care 01/24/22 420 [facility] 276 [place], [place] [phone] Obdulio Barrera, Assigned Pulmonology 02/06/22 MD Provider 420 [facility] 276 [place], [place] [address] Lesvia Stanley, GHADA Cardiac Rehabilitation 03/03/22 03/03/23 [facility] Therapist [address] [place] [address] Marilia Deluna, PhD Assigned Behavioral 02/20/22 [address] [facility] Health Provider [place], [place] [address] Niyah Decker, [facility] Pharmacist Pharmacist 03/07/[address] [place] [address] 812 [place], [place] [address] Lesvia Stanley, GHADA Cardiac Rehabilitation 03/17/22 03/17/23 [facility] Therapist [address] [place] [address] Delia Avila, Pharmacist Pharmacist 06/07/22 [facility] [address] [place] [address] Mago Swift, [facility] Lead Security Investigator Auto Bench Mechanic - 08/05/21 Clinical Leela Jarvis [facility] Pharmacist 07/26/22 05/15/23 [address] [facility] [address] [place], [place] [phone] Niyah Decker, [facility] Assigned MTM 08/10/22 420 [facility] 812 Pharmacist [place], [place] [address] documented as of this encounter
--- OUTSIDE RECORDS SUMMARY | 2022-09-21 03:58 | XMS_ITS | Encounter Summary ---
:1980 Author Organization [facility] Address [address] [place] [address] Care Team Providers Name Role Phone Aydee Burton DYE COLORIST FORMULATOR GAMBLING SUPERVISOR Primary Care Provider [phone] Aydee Burton APRN GAMBLING SUPERVISOR Unavailable [phone] Louisa Hood DYE COLORIST FORMULATOR GAMBLING SUPERVISOR Unavailable [phone] Angel Hannah MD Unavailable Lesly Celaya MD Unavailable Tawana Patel MA Unavailable Unavailable Ramses Mcpherson MD Unavailable [phone] Obdulio Barrera MD Unavailable [phone] Obdulio Barrera MD Unavailable [phone] Lesvia Stanley Unavailable Marilia Deluna PhD Unavailable Niyah Decker [facility] Unavailable Lesvia Stanley Unavailable Delia Avila [facility] Unavailable [phone] Mago Swift [facility] Unavailable Leela Jarvis [facility] Unavailable Niyah Decker Vania [facility] Unavailable Encounter Details Date Type Department Care Team Description 08/26/2022 Virtual Visit [facility] Aydee Burton (P rimary Dx); [facility] [place] ELADIO Mendez GAMBLING SUPERVISOR Esophageal yeast infection (H) [facility] [address] 5 [phone] Social History Tobacco Use Types Packs/Day Years [...] er 08/05/2021 How often do you attend sabianism or anglican services? Never 08/05/2021 Do you belong to any clubs or organizations such as sabianism N o 08/05/2021 groups, unions, fraternal or [...] at Date Recorded Female 11/09/2021 7:53 PM SEWING MACHINE BOBBIN WINDER COVID-19 Exposure Response Date Recorded In the last 10 days, have you been in contact with No / Unsu re 08/26/2022 9:44 AM CDT someone who was confirmed or suspected to have Coronavirus/COVID-19? documented as of this encounter Progress Notes Aydee Burton, ELADIO KOO - 08/26/2022 3:30 PM CDT Images from the original note were not included. Marta is a 42 year old who is being evaluated via a billable video visit. How would you like to obtain your AVS? MyChart If the video visit is dropped, the invitation should be resent by: Text to cell phone: [phone] Will anyone else be joining your video visit? No Assessment & Plan Thrush Esophageal yeast infection (H) Will treat with another round of oral fluconazole. Labs for liver next time clinic. Follow up with GI if unable to clear. Marta verbalizes understanding of plan of care and is in agreement. - fluconazole (DIFLUCAN) 200 MG tablet Dispense: 15 tablet; Refill: 0 Return in about 1 week (around 09/02/2022) for Recheck as needed. Aydee Burton APRN CNP [facility] Marta is a 42 year old, presenting for the following health issues: No chief complaint on file. HPI Concern - Thrush Onset: x4 days - at least Description: has had thrush in past from prednisone-completed yesterday prescribed by seasonal greenery bundler - mouths isn't that bad but can feel in in her throat Intensity: moderate Progression of Symptoms: Better in mouth - worse in throat Accompanying Signs & Symptoms: chunks in mouth and throat, coughing Previous history of similar problem: yes Precipitating factors: Worsened by: can get to where cannot talk, when talks more Alleviating factors: Improved by: drinking a lot - cough drops Therapies tried and outcome: see above Asthma flare pulmonology 40 mg X 5 days Upper endoscopy noted esophageal kirk. Review of Systems Constitutional, HEENT, cardiovascular, pulmonary, GI, , musculoskeletal, neuro, skin, endocrine and psych systems are negative, except as otherwise noted in the HPI. Objective Vitals: No vitals were obtained today due to virtual visit. Physical Exam GENERAL: Healthy, alert and no distress EYES: Eyes grossly normal to inspection. No discharge or erythema, or obvious scleral/conjunctival abnormalities. RESP: No audible wheeze, cough, or visible cyanosis. No visible retractions or increased work of breathing. SKIN: Visible skin clear. No significant rash, abnormal pigmentation or lesions. NEURO: Cranial nerves grossly intact. Mentation and speech appropriate for age. PSYCH: Mentation appears normal, affect normal/bright, judgement and insight intact, normal speech and appearance well-groomed. Video-Visit Details Video Start Time: 3:32 PM Type of service: Video Visit Video End Time:3:41 PM Originating Location (pt. Location): Home Distant Location (provider location): On-site Platform used for Video Visit: Becka documented in this encounter Plan of Treatment Upcoming Encounters Date Type Specialty Care Team Description 09/26/2022 Appointment Speech Therapy Obdulio Barrera MD 420 [facility] 276 [place] [address] Anabel Chew, PHILOSOPHY INSTRUCTOR [address] [place] [address] 09/27/2022 Therapy Visit Physical Therapy Luisana Watkins, PT 2155 [place] [address] 09/29/2022 Virtual Visit Pain & Palliative Marilia Deluna Care PhD [address] [place] [address] 09/30/2022 Office Visit Family Practice Aydee Burton APRN GAMBLING SUPERVISOR [address] [place] [address] 10/03/2022 Therapy Visit Physical Therapy Una Reardon, PT 2151 [place] [phone] 10/10/2022 Hospital Encounter Surgery Lesly Celaya MD [address] [place], [place] [address] 10/10/2022 Office Visit Surgery Lesly Celaya MD [address] [place], [place] [phone] Ninoska Flowers PA-C [address] [place] [address] 10/10/2022 Surgery Surgery Lesly Celaya, EXCISION, MASSES - MD back, abdomen, [address] [place] [address] 10/11/2022 Virtual Visit Pharm Clari Stoll, [facility] [address] [place] [address]1982 [place], [place] [address] 10/14/2022 Appointment Speech Therapy Anabel Chew, PHILOSOPHY INSTRUCTOR [facility] 516 [facility] 396 [place], [place] [address] 10/21/2022 Office Visit Pulmonology Obdulio Barrera MD 420 [facility] 276 [place], [place] [address] 10/25/2022 PRE VISIT ENT Charo Burton MD Previsit 909 [place], [place] [phone] 10/25/2022 Office Visit Charo Crater MD 909 [place], [place] [address] 10/25/2022 Office Visit ENT Provider, 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 Lace And Textiles Restorer 10/28/2022 Appointment Speech Therapy Anabel Chew SLP [address] [address] 11/17/2022 Appointment Speech Therapy Anabel Chew SLP [address] [address] 12/23/2022 Office Visit Neurology Colby Yeung MD [address] [address] Scheduled Procedures Name Priority Associated Diagnoses Date/Time EXCISION, MASS, TORSO Lipoma of skin and subcuta neous 10/10/2022 7:30 AM SEWING MACHINE BOBBIN WINDER tissue documented as of this encounter Goals Goal Patient Goal Associated Recent Patient-Stated? Author Type Problems Progress Attend Speciality Care Plan Establish Care 50% No Randal rn, Appointments (08/29/2022 Mago Murray, (ACCOUNTING SYSTEMS ANALYST, 3:24 PM CDT) [facility] Psychiatry, Counseling, and the Sleep Clinic) Note: Formatting of this note is differe nt from the original. Barriers: Appointment availability. Strengths: Recognition of need, Care Manager Non Profit rdination involvement. Patient expressed understanding of goal: [...] on: 08/16/2022 9:45 AM Lesly Celaya MD [facility] Surgery [facility] To address painful lumps in my [...] Chronic Pain is not 30% (07/05/2022 No JamisonMago cortes well-managed. self-managed 3:14 PM CDT) M, LICS [...] as of this encounter Visit Diagnoses Diagnosis Thrush - Primary Candidiasis of mouth Esophageal yeast infection (H) Candidiasis of the esophagus Lipoma of skin and subcutaneous tissue Lipoma of other skin and subcutaneous ti ssue documented in this encounter Additional Health Concerns Problem Noted Date Establish Care 07/05/2022 Chronic Pain is not self-managed 07/05/2022 Assessment Noted Time PHQ-9 Depression Total Score: 16 06/24/2022 9:31 AM CD T documented as of this encounter Care Teams Manufacturing Production Manager Relationship Specialty Start Date End Date Aydee Burton, PCP - General Nurse Practitioner - 05/17/21 DYE COLORIST FORMULATOR GAMBLING SUPERVISOR Family [address] [place] [address] [phone] Aydee Burton, Assigned PCP 04/28/21 DYE COLORIST FORMULATOR [facility] [address] [place] [address] 646752 Louisa Hood, Assigned Neuroscience 07/11/21 DYE COLORIST FORMULATOR GAMBLING SUPERVISOR Provider [address] [place] [address] [place], Assigned Sleep 08/01/21 Angel Turcios, Provider [address] [place] [address] Lesly Celaya MD Assigned Surgical 09/05/[address] Provider [place], [place] [phone] Tawana Patel MA [facility] 09/30/21 Worker Ramses Mcpherson Assigned OBGYN 11/07/21 MD Onesimo Provider [address] [place] [address] Obdulio Barrera MD Critical Care 01/24/22 420 [facility] 276 [place] [address] Obdulio Barrera, Assigned Pulmonology 02/06/22 Provider 420 [facility] 276 [place], [place] [address] Lesvia Stanley, GHADA Cardiac Rehabilitation 03/03/22 03/03/23 [facility] Therapist [address] [place], [place] [address] Marilia Deluna, PhD Assigned Behavioral 02/20/22 [address] [facility] Provider [place], [place] [phone] Niyah Decker, [facility] Pharmacist Pharmacist 03/07/22 420 [facility] 812 [place], [place] [phone] Lesvia Stanley, GHADA Cardiac Rehabilitation 03/17/22 03/17/23 [facility] Therapist [address] [place] [address] Delia Avila, Pharmacist Pharmacist 06/07/22 [facility] 909 [place], [place] [address] Mago Swift, [facility] Lead Separator Tender Front Line Supervisor - 08/05/21 Clinical Leela Jarvis, [facility] Pharmacist 07/26/22 05/15/23 3[address] [facility] [address] [place] [phone] Niyah Decker, [facility] Assigned MTM 08/10/22 420 [facility] 812 Pharmacist [place], [place] [address] documented as of this encounter
--- OUTSIDE RECORDS SUMMARY | 2022-09-21 03:58 | XMS_ITS | Encounter Summary ---
:1980 Author Organization [facility] Address [address] [place] [address] Care Team Providers Name Role Phone Aydee Nam BATHHOUSE KEEPER SPLICER OPERATOR Primary Care Provider Aydee Nam APRN SPLICER OPERATOR Unavailable [phone] Louisa Hood BATHHOUSE KEEPER SPLICER OPERATOR Unavailable [phone] Angel Hannah MD Unavailable Lesly Celaya MD Unavailable Tawana Patel MA Unavailable Unavailable Ramses Mcpherson MD Unavailable [phone] Obdulio Barrera MD Unavailable [phone] Obdulio Barrera MD Unavailable [phone] Lesvia Stanley Unavailable Marilia Deluna PhD Unavailable Niyah Decker [facility] Unavailable Lesvia Stanley Unavailable Delia Avila [facility] Unavailable [phone] JamisonMago cortes [facility] Unavailable Leela Jarvis [facility] Unavailable Brianne Niyah Caro [facility] Unavailable Reason for Visit Reason Onset Date Comments Schedule Surgery 08/16/2022 EXCISION MASSES BACK , ABDOMEN, RIGHT LOWER EXTREMITY MAC PT INS TOT HAVE H&P WITH DR NAM 60 MIN REQ PA ASSIST JLS NMS Encounter Details Date Type Department Care Team Description 08/16/2022 Telephone [facility] Maggy Celaya MD Schedule Surgery Surgery Clinic [address] (EXCISION MASSES BACK, [place] [address] ABDOMEN, RIGHT LOWER [address] EXTREMITY MAC PT INS [address] TOT HAVE H&P [place] IHSAN Grey 60 [place] [id number] ASSIST JLS NMS ) [phone] Social History Tobacco Use Types Packs/Day Years [...] er 08/05/2021 How often do you attend roman catholic or mandaeism services? 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 documented as of this encounter Miscellaneous Notes Telephone Encounter - Oralia Conway CMA - 08/16/2022 10:41 AM CDT Type of surgery: EXCISION MASSES BACK, ABDOMEN, RIGHT LOWER EXTREMITY Location of surgery: [facility] Date and time of surgery: 10/10/2022 @ 7:30 AM Surgeon: Lesly Celaya MD Pre-Op Appt Date: PATIENT TO SCHEDULE Post-Op Appt Date: PATIENT TO SCHEDULE Packet sent out: Yes Pre-cert/Authorization completed: Not Applicable Date: 08/16/2022 EXCISION MASSES BACK, ABDOMEN, RIGHT LOWER EXTREMITY MAC PT INS TOT HAVE H&P WITH DR NAM 60 MIN REQ PA ASSIST JLS NMS documented in this encounter Plan of Treatment Upcoming Encounters Date Type Specialty Care Team Description 09/26/2022 Appointment Speech Therapy Obdulio Barrera MD [address] [facility] 276 [place], [place] [address] Anabel Chew, FISH HATCHERY ASSISTANT [address] [place], [place] [address] 09/27/2022 Therapy Visit Physical Therapy Luisana Watkins, PT [address] [place] [address] 09/29/2022 Virtual Visit Pain & Palliative Marilia Deluna, Care PhD [address] [facility] [address] 09/30/2022 Office Visit Family Practice Aydee Nam, BATHHOUSE KEEPER SPLICER OPERATOR [address] [place], [place] [phone] 10/03/2022 Therapy Visit Physical Therapy David-Una Tang, PT [address] [place] [address] 10/10/2022 Hospital Encounter Surgery Lesly Celaya MD [address] [place] [address] 10/10/2022 Office Visit Surgery Lesly Celaya MD [address] [place] [address] Ninoska Flowers PA-Ynes [address] [place] [address] 10/10/2022 Surgery Surgery Lesly Celaya, EXCISION, MASSES - MD back, abdomen, [address] [place] [address] 10/11/2022 Virtual Visit Clari Su, [facility] [address] [id number] [place], [place] [address] 10/14/2022 Appointment Speech Therapy Anabel Chew, FISH HATCHERY ASSISTANT [facility] [address] [facility] 396 [place], [place] [address] 10/21/2022 Office Visit Pulmonology Obdulio Barrera MD [address] [facility] 276 [place] [address] 10/25/2022 PRE VISIT ENT Charo Burton MD Previsit [address] [place], [place] [address] 10/25/2022 Office Visit ENT Charo Burton MD [address] [place], [place] [address] 10/25/2022 Office Visit ENT Provider, Jeannette 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 Cradle Slide Maker 10/28/2022 Appointment Speech Therapy Anabel Chew, FISH HATCHERY ASSISTANT [address] [address] 11/17/2022 Appointment Speech Therapy Anabel Chew, FISH HATCHERY ASSISTANT [address] [address] 12/23/2022 Office Visit Neurology Colby Yeung MD [address] [place] [address] Scheduled Procedures Name Priority Associated Diagnoses Date/Time EXCISION, MASS, TORSO Lipoma of skin and subcuta neous 10/10/2022 7:30 AM FLYER BUILDER tissue documented as of this encounter Goals Goal Patient Goal Associated Recent Patient-Stated? Author Type Problems Progress Attend Speciality Care Plan Establish Care 50% No Randal rn, Appointments (08/29/2022 Mago Murray, (CELL PLASTERER, 3:24 PM CDT) [facility] Psychiatry, Counseling, and the Sleep Clinic) Note: Formatting of this note is differe nt from the original. Barriers: Appointment availability. Strengths: Recognition of need, Care Fishery Division Chief rdination involvement. Patient expressed understanding of goal: [...] on: 08/16/2022 9:45 AM Lesly Celaya MD [facility] [place] To address painful lumps in my abdomin [...] documented as of this encounter Care Teams Onshore Diver Relationship Specialty Start Date End Date Aydee Nam, PCP - General Nurse Practitioner - 05/17/21 BATHHOUSE KEEPER [facility] Family [address] [place] [address] [place] [address] Aydee Nam, Assigned PCP 04/28/21 BATHHOUSE KEEPER SPLICER OPERATOR [address] [place], [place] [phone] Louisa Hood, Assigned Neuroscience 07/11/21 BATHHOUSE KEEPER SPLICER OPERATOR Provider [address] [place], [place] [phone] [place], Assigned Sleep 08/01/21 Angel Turcios, Provider [address] [facility] [address] [place], [place] [phone] Lesly Celaya MD Assigned Surgical 09/05/21 [address] Provider [place], [place] [phone] Tawana Patel MA [facility] 09/30/21 Worker Ramses Mcpherson Assigned OBGYN 11/07/21 MD Onesimo Provider [address] [place], [place] [phone] Obdulio Barrera MD Critical Care 01/24/[address] [place] [address] Obdulio Barrera, Assigned Pulmonology 02/06/[address] [address] Lesvia Stanley EP Cardiac Rehabilitation 03/03/22 03/03/23 [facility] Therapist [address] [place] [address] Marilia Deluna, PhD Assigned Behavioral 02/20/22 [address] [facility] [place] [place] [address] Niyah Decker, [facility] Pharmacist Pharmacist 03/07/[address] [place] [address] 8[address] [place], [place] [address] Lesvia Stanley, GHADA Cardiac Rehabilitation 03/17/22 03/17/23 [facility] Therapist [address] [place] [address] Delia Avila, Pharmacist Pharmacist 06/07/22 [facility] [address] [place], [place] [phone] Mago Swift, [facility] Lead Dosier Operator Health Education Teacher - 08/05/21 Clinical Leela Jarvis [facility] Pharmacist 07/26/22 05/15/23 [facility] [place] [address] Niyah Decker, [facility] Assigned MTM 08/10/[address] [place] [address] 812 Pharmacist [place], [place] [address] documented as of this encounter
--- OUTSIDE RECORDS SUMMARY | 2022-09-21 03:58 | XMS_ITS | Encounter Summary ---
:1980 Author Organization [facility] Address [address] [place] [address] Care Team Providers Name Role Phone Aydee Burton BUSINESS SOLUTIONS ANALYST MASS COMMUNICATIONS INSTRUCTOR Primary Care Provider [phone] Aydee Burton APRN MASS COMMUNICATIONS INSTRUCTOR Unavailable [phone] Louisa Hood BUSINESS SOLUTIONS ANALYST MASS COMMUNICATIONS INSTRUCTOR Unavailable [phone] Angel Hannah MD Unavailable Lesly Celaya MD Unavailable Tawana Patel MA Unavailable Unavailable Ramses Mcpherson MD Unavailable [phone] Obdulio Barrera MD Unavailable [phone] Obdulio Barrera MD Unavailable [phone] Lesvia Stanley Unavailable Marilia Deluna PhD Unavailable Niyah Decker [facility] Unavailable Lesvia Stanley Unavailable Delia Avila [facility] Unavailable [phone] JamisonKikiMago Terri [facility] Unavailable Leela Jarvis [facility] Unavailable Niyah Decker [facility] Unavailable Reason for Visit Reason Comments Consult Several lipomas on abd Encounter Details Date Type Department Care Team Description 08/16[facility]2022 [facility] subcutaneous tissue [place] [address] (Primary Dx) [address] [facility] [address] [place], [place] [phone] Social History Tobacco Use Types Packs/Day Years Used Date Smoking Tobacco: Never Smokeless Tobacco: Never Tobacco Cessation: Counseling Given: Yes Alcohol Use Standard Drinks/Week Comments Not Currently [...] How often do you attend taoism or protestant services? 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 documented as of this encounter Last Filed Vital Signs Vital Sign Reading Time Taken Comments Blood Pressure 124/76 08/16/2022 9:43 AM CDT Pulse 110 08/16/2022 9:43 AM CDT Temperature - - Respiratory Rate 16 08/16/2022 9:43 AM CDT Oxygen Saturation 97% 08/16/2022 9:43 AM CDT Inhaled Oxygen Concentration - - Weight 92.5 kg (204 lb) 08/16/2022 9:43 AM CDT Height 165.1 cm (5' 5) 08/16/2022 9:43 AM CDT Body Mass Index 33.95 08/16/2022 9:43 AM CDT documented in this encounter Progress Notes Lesly Celaya MD - 08/16/2022 9:45 AM CDT Assessment: Marta Hill is a 42 year old female with multiple painful lipomas. 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 Due to her lung disease I recommended avoiding general anesthesia. She elects to proceed with excision and will schedule at her convenience. Most bothersome lipomas are located on her right back, anterior abdomen, right anterior thigh We have discussed surgery in detail, including benefits, alternatives, complications, incision, scar, infection, anesthesia, bleeding, lifting and activity limits after surgery. All questions have beenanswered to the best of my ability. Time off work: 2 days Time with restricted activity 1 weeks 30 minutes spent on the date of the encounter doing chart review, history and exam, documentation and further activities as noted above HPI: Marta Hill is a 42 year old female who presents today in consultation for lump on her abdomen, right back and right thigh. I performed multiple lipoma excisions from her bilateral upper extremities, bilateral lower extremities and back 1 year ago. She did well after that procedure, no problemsand minimal pain. Now she is noting more painful lipomas on her abdominal wall, right back over her rib cage and rightanterior thigh. They hurt more when she is leaning on those areas. She has developed debilitating asthma after her hysterectomy in December and is currently seeing pulmonology. She had to change her job and she cannot be as active as she would like due to her symptoms. They are discussing starting a biologic at this point. She also mentions she was worked up for a right breast lump which on my review of her chart was a small fibroadenoma. It does not bother her. I recommended against excision at this point. PMH: Past Medical History: Diagnosis Date ??? Arthritis 2021. Start of ? Embow? Neck? Depressive disorder as teen and on ??? Hypertension 2002 only during ??? Sleep apnea Borderline 4.8 per testing. (<5) Takes longer to wake up. ??? Uncomplicated asthma not sure from being sick PSH: Past Surgical History: Procedure Laterality Date ??? BREAST SURGERY Breast Augmuntation ??? COSMETIC SURGERY not sure breast augmentation ??? ENT SURGERY teen years sinus for bloody noses ??? ESOPHAGOSCOPY, GASTROSCOPY, DUODENOSCOPY (EGD), COMBINED Left 07/06/2022 Procedure: ESOPHAGOGASTRODUODENOSCOPY (EGD) () with brushing using cytology brush; Surgeon: Marvin Villarreal MD; Location: [facility] ??? EXCISE MASS BACK N/A 10/12/2021 Procedure: EXCISION MULTIPLE LIPOMAS - bilateral legs, arms and trunk; Surgeon: Lesly Celaya MD; Location: [facility] OR ??? GENITOURINARY SURGERY Tubal ligation and ablasion ??? EDUCATION AND TRAINING MANAGER SURGERY not sure tubal ligation and ablasion ? ? HEAD & NECK SURGERY Sinus ??? LAPAROSCOPIC HYSTERECTOMY TOTAL Bilateral 12/28/2021 Procedure: TOTAL LAPAROSCOPIC HYSTERECTOMY WITH BILATERAL SALPINGECTOMY; Surgeon: Ramses Mcpherson MD; Location: [facility] OR ??? ORTHOPEDIC SURGERY 2020 radial head fracture 3 screws, left elbow ??? RADIOFREQUENCY ABLATION, UTERINE 2018 Allergies: Allergies Allergen Reactions ??? Amoxicillin Rash Home Medications: Current Outpatient Medications Medication Sig Dispense Refill ??? acetaminophen (TYLENOL) 500 MG tablet Take 500-1,000 mg by mouth every 6 hours as needed for mild pain ??? albuterol (PROAIR HFA/PROVENTIL HFA/VENTOLIN HFA) 108 (90 Base) MCG/ACT inhaler Inhale 2 puffs into the lungs every 4 hours as needed for shortness of breath / dyspnea or wheezing 18 g 11 ??? albuterol (PROVENTIL) (2.5 MG/3ML) 0.083% neb solution Take 1 vial (2.5 mg) by nebulization every 6 hours as needed for shortness of breath / dyspnea or wheezing 90 mL 5 ??? benzonatate (TESSALON) 100 MG capsule Take 1 capsule (100 mg) by mouth 3 times daily as needed for cough 90 capsule 1 ??? budesonide-formoterol (SYMBICORT) 160-4.5 MCG/ACT Inhaler Inhale 2 puffs into the lungs 2 times daily 10.2 g 11 ??? buPROPion (WELLBUTRIN XL) 300 MG 24 hr tablet Take 1 tablet (300 mg) by mouth daily (Patient taking differently: Take 300 mg by mouth every morning) 30 tablet 2 ??? DULoxetine (CYMBALTA) 60 MG capsule Take 60 mg by mouth At Bedtime 2 tablets - 120mg total ??? fluconazole (DIFLUCAN) 100 MG tablet TAKE 2 TABLETS BY MOUTH NOW THEN 1 ONCE DAILY FOR 9 DAYS ??? fluticasone (FLONASE) 50 MCG/ACT nasal spray Use 2 spray(s) in each nostril once daily 16 g 11 ??? ibuprofen (ADVIL/MOTRIN) 200 MG capsule Take 200 mg by mouth daily 400mg - Daily for pain ??? ipratropium - albuterol 0.5 mg/2.5 mg/3 mL (DUONEB) 0.5-2.5 (3) MG/3ML neb solution Take 1 vial (3 mLs) by nebulization every 4 hours as needed for shortness of breath / dyspnea or wheezing 540 mL 5 ??? lamoTRIgine (LAMICTAL) 100 MG tablet Take 1 tablet (100 mg) by mouth daily And a 200mg Total dose in 300mg daily 90 tablet 1 ??? lamoTRIgine (LAMICTAL) 200 MG tablet Take 1 tablet (200 mg) by mouth daily With a 100 mg to total 300mg daily 90 tablet 1 ??? methocarbamol (ROBAXIN) 500 MG tablet Take 1-1.5 tablets (500-750 mg) by mouth 3 times daily as needed for muscle spasms 90 tablet 1 ??? naproxen sodium 220 MG capsule Take 220 mg by mouth daily 1-2 tablet daily ??? omeprazole (PRILOSEC) [address] capsule Take 1 capsule (20 mg) by mouth daily (Patient taking differently: Take 20 mg by mouth daily Take 1 cap by mouth 2 times daily) 90 capsule 0 ??? ondansetron (ZOFRAN ODT) 4 MG ODT tab Take 1 tablet (4 mg) by mouth every 8 hours as needed for nausea 20 tablet 3 ??? pregabalin (LYRICA) 50 MG capsule Take 1 capsule (50 mg) by mouth 3 times daily 90 capsule 0 ??? QUEtiapine (SEROQUEL) 100 MG tablet Take 100 mg by mouth as needed 30 tablet 2 ??? QUEtiapine (SEROQUEL) 200 MG tablet Take 200 mg by mouth At Bedtime ??? tiotropium (SPIRIVA) 18 MCG inhaled capsule Inhale 1 capsule (18 mcg) into the lungs daily 30 capsule 3 ??? vitamin D3 (CHOLECALCIFEROL) 50 mcg (2000 units) tablet Take 1 tablet by mouth daily Social History: Social History Tobacco Use ??? Smoking status: Never Smoker ??? Smokeless tobacco: Never Used Vaping Use ??? Vaping Use: Never used Substance Use Topics ??? Alcohol use: Not Currently Comment: None for 1.5 personal choice. Family hx. ??? Drug use: Not Currently Family History: Family History Problem Relation Age of Onset ??? Depression Mother ??? Anxiety Disorder Mother ??? Substance Abuse Mother ??? Asthma Mother ??? Hypertension Father ??? Cerebrovascular Disease Father ??? Depression Father ??? Anxiety Disorder Father ??? Substance Abuse Father ??? Asthma Father ??? Deep Vein Thrombosis (DVT) Father ??? Cerebrovascular Disease Maternal Grandmother ??? Diabetes Paternal Grandfather ??? Depression Paternal Grandfather ??? Depression Sister ??? Anxiety Disorder Sister ??? Substance Abuse Sister ??? Asthma Sister ??? Asthma Son ??? Asthma Son ??? Depression Daughter ??? Anxiety Disorder Daughter ??? Depression Daughter ??? Anxiety Disorder Daughter ??? Asthma Daughter ??? Anxiety Disorder Daughter ??? Colon Cancer No family hx of ROS: The 10 point review of systems is negative other than noted in the HPI and above. PE: BP 124/76 Pulse 110 Resp 16 Ht 1.651 m (5' 5) Wt 92.5 kg (204 lb) LMP 12/11/2021 (Exact Date) SpO2 97% BMI 33.95 kg/m?? General appearance: well-nourished, no apparent distress. Resp: Mild dyspnea when she is getting up and down to the exam table Skin: Abdominal wall: Small lipoma felt in the right lateral abdominal wall Back: 2 to 3 cm lipoma in the right flank over the lower rib cage Right leg: Multiple small lipomas over the right anterior thigh in close proximity Lesly Celaya MD Please route or send letter to: Primary Care Provider (PCP) documented in this encounter Plan of Treatment Upcoming Encounters Date Type Specialty Care Team Description 09/26/2022 Appointment Speech Therapy Obdulio Barrera MD [address] [place] [address] [address] [place], [place] [address] Anabel Chew, FLAT LOCK OPERATOR [address] [place], [place] [address] 09/27/2022 Therapy Visit Physical Therapy Luisana Watkins, PT [address] [place] [address] 09/29/2022 Virtual Visit Pain & Palliative Marilai Deluna Care PhD [address] [place] [address] 09/30/2022 Office Visit Family Practice Aydee Burton, ELADIO MASS COMMUNICATIONS INSTRUCTOR [address] [place], [place] [phone] 10/03/2022 Therapy Visit Physical Therapy Una Reardon, PT [address] [place] [address] 10/10/2022 Hospital Encounter Surgery Lesly Celaya MD [address] [place], [place] [address] 10/10/2022 Office Visit Surgery Lesly Celaya MD [address] [place], [place] [phone] Ninoska Flowers PA-C [address] [place] [address] 10/10/2022 Surgery Surgery Lesly Celaya, EXCISION, MASSES - back, abdomen, [address] [place] [address] 10/11/2022 Virtual Visit Pharm Clari Stoll, [facility] [address] [phone] [place], [place] [address] 10/14/2022 Appointment Speech Therapy Anabel Chew, FLAT LOCK OPERATOR [facility] [address] [facility] [address] [place], [place] [address] 10/21/2022 Office Visit Pulmonology Obdulio Barrera MD 420 [facility] [address] [place], [place] [address] 10/25/2022 PRE VISIT ENT Charo Burton MD Previsit [address] [place] [address] 10/25/2022 Office Visit Charo Carter MD [address] [place] [id number] 10/25/2022 Office Visit ENT Provider, 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 Education Administrator 10/28/2022 Appointment Speech Therapy Anabel Chew SLP [address] [address] 11/17/2022 Appointment Speech Therapy Anabel Chew SLP [address] [address] 12/23/2022 Office Visit Neurology Colby Yeung MD [address] [phone] Scheduled Procedures Name Priority Associated Diagnoses Date/Time EXCISION, MASS, TORSO Lipoma of skin and subcuta neous 10/10/2022 7:30 AM [employer] SALES CONSULTANT tissue documented as of this encounter Goals Goal Patient Goal Associated Recent Patient-Stated? Author Type Problems Progress Attend Speciality Care Plan Establish Care 50% No Randal rn, Appointments (08/29/2022 Mago Murray, (STRUCTURAL STEEL PAINTER, 3:24 PM CDT) [facility] Psychiatry, Counseling, and the Sleep Clinic) Note: Formatting of this note is differe nt from the original. Barriers: Appointment availability. Strengths: Recognition of need, Care Applications Engineering Manager rdination involvement. Patient expressed understanding of goal: [...] my appointment on: 08/16/2022 9:45 AM Lesly eClaya MD [facility] Surgery [facility] To address painful lumps in my abdomin [...] as of this encounter Visit Diagnoses Diagnosis Lipoma of skin and subcutaneous tissue - Primary Lipoma of other skin and subcutaneous ti ssue Lipoma of skin and subcutaneous tissue Lipoma of other skin and subcutaneous ti ssue documented in this encounter Additional Health Concerns Problem Noted Date Establish Care 07/05/2022 Chronic Pain is not self-managed 07/05/2022 Assessment Noted Time PHQ-9 Depression Total Score: 16 06/24/2022 9:31 AM CD T documented as of this encounter Care Teams Conveyor Mechanic Relationship Specialty Start Date End Date Aydee Burton, PCP - General Nurse Practitioner - 05/17/21 BUSINESS SOLUTIONS ANALYST MASS COMMUNICATIONS INSTRUCTOR Family [address] [place] [phone] Aydee Burton, Assigned PCP 04/28/21 BUSINESS SOLUTIONS ANALYST [facility] [address] [place], [place] [address] Louisa Hood, Assigned Neuroscience 07/11/21 BUSINESS SOLUTIONS ANALYST MASS COMMUNICATIONS INSTRUCTOR Provider [address] [place] [address] [place], Assigned Sleep 08/01/21 Angel Turcios, Provider [address] [place] [address] Lesly Celaya MD Assigned Surgical 09/05/21 [address] [place] [address] Tawana Patel [facility] 09/30/21 Worker Ramses Mcpherson Assigned OBGYN 11/07/21 MD Onesimo Provider [address] [place] [address] Obdulio Barrera MD Critical Care 01/24/22 420 [facility] [address] [place] [address] Obdulio Barrera, Assigned Pulmonology 02/06/22 Provider 420 [facility] [address] [place], [place] [address] Lesvia Stanley EP Cardiac Rehabilitation 03/03/22 03/03/23 [facility] Therapist [address] [facility] [address] [place], [place] [address] Marilia Deluna, PhD Assigned Behavioral 02/20/22 [address] [facility] Provider [place], [place] [address] Niyah Decker, [facility] Pharmacist Pharmacist 03/07/22 420 [facility] [address] [place], [place] [phone] Lesvia Stanley, EP Cardiac Rehabilitation 03/17/22 03/17/23 [facility] Therapist [address] [address] Delia Avila, Pharmacist Pharmacist 06/07/[address] [facility] [address] [place], [place] [phone] Mago Swift [facility] Lead Bottom Filler [place] Rafting Guide - 08/05/21 Clinical Leela Jarvis, [facility] Pharmacist 07/26/22 05/15/23 [address] [facility] [address] [place] [phone] Niyah Decker, [facility] Assigned MTM 08/10/22 420 [facility] 812 Pharmacist [place], [place] [phone] documented as of this encounter
--- OUTSIDE RECORDS SUMMARY | 2022-09-21 03:58 | XMS_ITS | Encounter Summary ---
:1980 Author Organization [facility] Address [address] [place] [address] Care Team Providers Name Role Phone Aydee Burton REGULATORY SUBMISSIONS SPECIALIST REGIONAL CLIMATE CHANGE ANALYST Primary Care Provider Aydee Burton APRN REGIONAL CLIMATE CHANGE ANALYST Unavailable [phone] Louisa Hood REGULATORY SUBMISSIONS SPECIALIST REGIONAL CLIMATE CHANGE ANALYST Unavailable [phone] Angel Hannah MD Unavailable Lesly Celaya MD Unavailable Tawana Patel MA Unavailable Unavailable Ramses Mcpherson MD Unavailable [phone] Obdulio Barrera MD Unavailable [phone] Obdulio Barrera MD Unavailable [phone] Lesvia Stanley Unavailable Marilia Deluna PhD Unavailable Niyah Decker [facility] Unavailable Lesvia Stanley Unavailable Delia Avila [facility] Unavailable [phone] JamisonMago [facility] Unavailable Leela Jarvis [facility] Unavailable Niyah Decker [facility] Unavailable Encounter Details Date Type Department Care Team Description 08/12/2022 Travel Social History Tobacco Use Types Packs/Day [...] er 08/05/2021 How often do you attend rastafarian or scientologist services? Never 08/05/2021 Do you belong to any clubs or organizations such as rastafarian N o 08/05/2021 groups, unions, fraternal or [...] at Date Recorded Female 11/09/2021 7:53 PM COMMUNICATION CONSULTANT COVID-19 Exposure Response Date Recorded In the last 10 days, have you been in contact with No / Unsu re 08/12/2022 2:34 PM CDT someone who was confirmed or suspected to have Coronavirus/COVID-19? documented as of this encounter Plan of Treatment Upcoming Encounters Date Type Specialty Care Team Description 09/26/2022 Appointment Speech Therapy Obdulio Barrera MD 420 [facility] 276 [place], [place] [address] Anabel Chew, MOTOR AND GENERATOR ASSEMBLER [facility] 516 [facility] 396 [place] [address] 09/27/2022 Therapy Visit Physical Therapy Luisana Watkins, PT 2155 [place] [address] 09/29/2022 Virtual Visit Pain & Palliative Marilia Deluna, [facility] PhD [address] [place] [address] 09/30/2022 Office Visit Family Practice Aydee Burton, REGULATORY SUBMISSIONS SPECIALIST REGIONAL CLIMATE CHANGE ANALYST [address] [place] [address] [phone] 10/03/2022 Therapy Visit Physical Therapy Una Reardon, PT 2155 [place] [phone] 10/10/2022 Hospital Encounter Surgery Lesly Celaya MD [address] [place], [place] [address] 10/10/2022 Office Visit Surgery Lesly Celaya MD [address] [place], [place] [address] Ninoska Flowers PA-Ynes [address] [facility] 300 [place] [address] 10/10/2022 Surgery Surgery Lesly Celaya, EXCISION, MASSES - back, abdomen, [address] right lower [facility] extremity [place], [place] [phone] 10/11/2022 Virtual Visit Clari Su, [facility] [address] [place] [address] 10/14/2022 Appointment Speech Therapy Anabel Chew, MOTOR AND GENERATOR ASSEMBLER [address] [address] 10/21/2022 Office Visit Pulmonology Obdulio Barrera MD 420 [facility] 276 [place], [place] [address] 10/25/2022 PRE VISIT ENT Charo Burton MD Previsit [address] [place] [address] [phone] 10/25/2022 Office Visit ENT Charo Burton MD 9 [place], [place] [address] 10/25/2022 Office Visit ENT Provider, 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 Head And Neck Surgeon 10/28/2022 Appointment Speech Therapy Anabel Chew, MOTOR AND GENERATOR ASSEMBLER [address] 742835 11/17/2022 Appointment Speech Therapy Anabel Chew SLP [address] 714235 12/23/2022 Office Visit Neurology Colby Yeung MD [address] [address] Scheduled Procedures Name Priority Associated Diagnoses Date/Time EXCISION, MASS, TORSO Lipoma of skin and subcuta neous 10/10/2022 7:30 AM COMMUNICATION CONSULTANT tissue documented as of this encounter Goals Goal Patient Goal Associated Recent Patient-Stated? Author Type Problems Progress Attend Speciality Care Plan Establish Care 50% Claudia Tee rn, Appointments (08/29/2022 Mago Murray, (AUTO POLISHER, 3:24 PM CDT) [facility] Psychiatry, Counseling, and the Sleep Clinic) Note: Formatting of this note is differe nt from the original. Barriers: Appointment availability. Strengths: Recognition of need, Care Aircraft Armament Mechanic rdination involvement. Patient expressed understanding of goal: [...] on: 08/16/2022 9:45 AM Lesly Celaya MD [facility] [place] To address painful lumps in my abdomin [...] documented as of this encounter Care Teams Student Support Counselor Relationship Specialty Start Date End Date Aydee Burton, PCP - General Nurse Practitioner - 05/17/21 REGULATORY SUBMISSIONS SPECIALIST REGIONAL CLIMATE CHANGE ANALYST Family [address] [place], [place] [phone] Aydee Burton, Assigned PCP 04/28/21 REGULATORY SUBMISSIONS SPECIALIST REGIONAL CLIMATE CHANGE ANALYST [address] [place] [address] Louisa Hood, Assigned Neuroscience 07/11/21 REGULATORY SUBMISSIONS SPECIALIST REGIONAL CLIMATE CHANGE ANALYST Provider 500 [place], [place] [phone] [place], Assigned Sleep 08/01/21 Angel Turcios, Provider [address] [place], [place] [phone] Lesly Celaya MD Assigned Surgical 09/05/21 [address] Provider [place], [place] [phone] Tawana Patel MA Community Health 09/30/21 Worker Ramses Mcpherson Assigned OBGYN 11/07/21 MD Onesimo Provider [address] [place], [place] [phone] Obdulio Barrera MD Critical Care 01/24/22 420 [facility] 276 [place], [place] [phone] Obdulio Barrera, Assigned Pulmonology 02/06/22 MD Provider 420 [facility] 276 [place], [place] [address] Lesvia Stanley, GHADA Cardiac Rehabilitation 03/03/22 03/03/23 [facility] Therapist [address] [place] [address] Marilia Deluna, PhD Assigned Behavioral 02/20/22 [address] [facility] Health Provider [place], [place] [address] Niyah Decker, [facility] Pharmacist Pharmacist 03/07/[address] [place] [address] 812 [place], [place] [address] Lesvia Stanley, GHADA Cardiac Rehabilitation 03/17/22 03/17/23 [facility] Therapist [address] [place] [address] Delia Avila, Pharmacist Pharmacist 06/07/22 [facility] [address] [place] [address]455 Mago Swift, [facility] Lead Fuse Maker Lead Manufacturing Engineering Tech - 08/05/21 Clinical Leela Jarvis [facility] Pharmacist 07/26/22 05/15/[address] [facility] [address] [place], [place] [phone] Niyah Decker, [facility] Assigned MTM 08/10/22 420 [facility] 812 Pharmacist [place], [place] [address] documented as of this encounter
--- OUTSIDE RECORDS SUMMARY | 2022-09-21 03:58 | XMS_ITS | Encounter Summary ---
:1980 Author Organization [place] Address [address] [place] [address] Care Team Providers Name Role Phone Aydee Burton DIET CLERK FEATHER CUTTING MACHINE FEEDER Primary Care Provider Aydee Burton APRN FEATHER CUTTING MACHINE FEEDER Unavailable [phone] Louisa Hood DIET CLERK FEATHER CUTTING MACHINE FEEDER Unavailable [phone] Angel Hannah MD Unavailable Lesly Celaya MD Unavailable Tawana Patel MA Unavailable Unavailable Ramses Mcpherson MD Unavailable [phone] Obdulio Barrera MD Unavailable [phone] Obdulio Barrera MD Unavailable [phone] Lesvia Stanley Unavailable Marilia Deluna PhD Unavailable Niyah Decker [facility] Unavailable Lesvia Stanley Unavailable Delia Avila [facility] Unavailable [phone] JamisonMago [facility] Unavailable Leela Jarvis [facility] Unavailable Niyah Decker [facility] Unavailable Encounter Details Date Type Department Care Team Description 08/16/2022 Travel Social History Tobacco Use Types Packs/Day [...] How often do you attend protestant or yazdanism services? Never 08/05/2021 Do you belong to [...] place to sleep or slept in a long-term (including now)? Sex Assigned at Date Recorded Female 11/09/2021 7:53 PM WHEAT CLEANER COVID-19 Exposure Response Date Recorded In the last 10 days, have you been in contact with No / Unsu re 08/16/2022 11:19 AM CDT someone who was confirmed or suspected to have Coronavirus/COVID-19? documented as of this encounter Plan of Treatment Upcoming Encounters Date Type Specialty Care Team Description 09/26/2022 Appointment Speech Therapy Obdulio Barrera MD 420 [facility] 276 [place], [place] [address] Anabel Chew, CERTIFIED NURSING ASSISTANT INSTRUCTOR [facility] 516 [facility] 396 [place] [address] 09/27/2022 Therapy Visit Physical Therapy Luisana Watkins, PT 2[address] [place] [address] 09/29/2022 Virtual Visit Pain & Palliative Marilia Deluna, [facility] PhD [address] [place] [address] 09/30/2022 Office Visit Family Practice Aydee Burton, DIET CLERK FEATHER CUTTING MACHINE FEEDER [address] [place] [address] [phone] 10/03/2022 Therapy Visit Physical Therapy Una Reardon, PT 2155 [place] [phone] 10/10/2022 Hospital Encounter Surgery Lesly Celaya MD [address] [place], [place] [address] 10/10/2022 Office Visit Surgery Lesly Celaya MD [address] [place], [place] [address] Ninoska Flowers PA-Ynes [address] [facility] 300 [place] [address] 10/10/2022 Surgery Surgery Lesly Celaya, EXCISION, MASSES - back, abdomen, [address] right lower [facility] extremity [place], [place] [phone] 10/11/2022 Virtual Visit Clari Su, [facility] [address] [place] [address] 10/14/2022 Appointment Speech Therapy Anabel Chew, CERTIFIED NURSING ASSISTANT INSTRUCTOR [address] [address] 10/21/2022 Office Visit Pulmonology Obdulio Barrera MD 420 [facility] 276 [place], [place] [address] 10/25/2022 PRE VISIT ENT Charo Burton MD Previsit [address] [place] [address]75 10/25/2022 Office Visit ENT Charo Burton MD 9 [place], [place] [address] 10/25/2022 Office Visit ENT Provider, 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 Ferryboat Ticket Taker 10/28/2022 Appointment Speech Therapy Anabel Chew, CERTIFIED NURSING ASSISTANT INSTRUCTOR [address] 886[address] 11/17/2022 Appointment Speech Therapy Anabel Chew SLP [address] [address]2445 12/23/2022 Office Visit Neurology Colby Yeung MD [address] [address] Scheduled Procedures Name Priority Associated Diagnoses Date/Time EXCISION, MASS, TORSO Lipoma of skin and subcuta neous 10/10/2022 7:30 AM WHEAT CLEANER tissue documented as of this encounter Goals Goal Patient Goal Associated Recent Patient-Stated? Author Type Problems Progress Attend Speciality Care Plan Establish Care 50% Claudia Tee rn, Appointments (08/29/2022 Mago Murray, (ORACLE TECHNICAL ARCHITECT, 3:24 PM CDT) [facility] Psychiatry, Counseling, and the Sleep Clinic) Note: Formatting of this note is differe nt from the original. Barriers: Appointment availability. Strengths: Recognition of need, Care Cna Gna rdination involvement. Patient expressed understanding of goal: [...] Lesly Celaya MD [facility] [place] To address painful lumps in my abdomin [...] documented as of this encounter Care Teams Shared Services Representative Relationship Specialty Start Date End Date Aydee Burton, PCP - General Nurse Practitioner - 05/17/21 DIET CLERK FEATHER CUTTING MACHINE FEEDER Family [address] [place], [place] [phone] Aydee Burton, Assigned PCP 04/28/21 DIET CLERK FEATHER CUTTING MACHINE FEEDER 4[address] [place] [address] Louisa Hood, Assigned Neuroscience 07/11/21 DIET CLERK FEATHER CUTTING MACHINE FEEDER Provider 500 [place], [place] [phone] [place], Assigned Sleep 08/01/21 Angel Turcios, Provider [address] [place], [place] [phone] Lesly Celaya MD Assigned Surgical 09/05/21 [address] Provider [place], [place] [phone] Tawana Patel MA Community Health 09/30/21 Worker Ramses Mcpherson Assigned OBGYN 11/07/21 MD Onesimo Provider [address] [place], [place] [phone] Obdulio Barrera MD Critical Care 01/24/22 420 [facility] 276 [place], [place] [phone] Obdulio Barrera, Assigned Pulmonology 02/06/22 MD Provider 420 [facility] 276 [place], [place] [address] Lesvia Stanley, GHADA Cardiac Rehabilitation 03/03/22 03/03/23 [facility] Therapist [address] [place] [address] Marilia Deluna, PhD Assigned Behavioral 02/20/22 [address] [facility] Health Provider [place], [place] [address] Niyah Decker, [facility] Pharmacist Pharmacist 03/07/[address] [place] [address] 812 [place], [place] [address] Lesvia Stanley, GHADA Cardiac Rehabilitation 03/17/22 03/17/23 [facility] Therapist [address] [place] [address] Delia Avila, Pharmacist Pharmacist 06/07/22 [facility] [address] [place] [address]605 Mago Swift, [facility] Lead Hauling Contractor Waredresser - 08/05/21 Clinical Leela Jarvis [facility] Pharmacist 07/26/22 05/15/[address] [facility] [address] [place], [place] [phone] Niyah Decker, [facility] Assigned MTM 08/10/22 420 [facility] 812 Pharmacist [place], [place] [address] documented as of this encounter
--- OUTSIDE RECORDS SUMMARY | 2022-09-21 03:58 | XMS_ITS | Encounter Summary ---
:1980 Author Organization [place] Address [address] [place] [address] Care Team Providers Name Role Phone Aydee Burton SANDSTONE SPLITTER WILDLIFE POLICY PROFESSIONAL Primary Care Provider [phone] Aydee Burton APRN WILDLIFE POLICY PROFESSIONAL Unavailable [phone] Louisa Hood SANDSTONE SPLITTER WILDLIFE POLICY PROFESSIONAL Unavailable [phone] Angel Hannah MD Unavailable Lesly Celaya MD Unavailable Tawana Patel MA Unavailable Unavailable Ramses Mcpherson MD Unavailable [phone] Obdulio Barrera MD Unavailable [phone] Obdulio Barrera MD Unavailable [phone] Lesvia Stanley Unavailable Marilia Deluna PhD Unavailable Niyah Decker [facility] Unavailable Lesvia Stanley Unavailable Delia Avila [facility] Unavailable [phone] Mago Swift [facility] Unavailable Leela Jarvis [facility] Unavailable Niyah Decker Vania [facility] Unavailable Reason for Visit Rehab Therapy Physical Therapy (Routine: Next available opening) - Pending Review Specialty Diagnoses / Procedures Referred By Contact Refer red To Contact Diagnoses Tension headache Cervicogenic headache Cervicalgia Colby Yeung MD [address] [place] [address] Referral ID Status Reason Start Date Expiration Date Visits V isits Requested Authorized [id number] Pending 06/30/2022 06/30/2023 1 1 Review Encounter Details Date Type Department Care Team Description 08/25/2022 [facility] Una Murray, PT Dx[facility] [address] [address] [address] [place] [address] (Work) [phone] Social History Tobacco Use Types Packs/Day Years [...] er 08/05/2021 How often do you attend samaritan or islam services? Never 08/05/2021 Do you belong to any clubs or organizations such as samaritan N o 08/05/2021 groups, unions, fraternal or [...] at Date Recorded Female 11/09/2021 7:53 PM CUSTOMER SERVICE TECHNICIAN COVID-19 Exposure Response Date Recorded In the last 10 days, have you been in contact with No / Unsu re 08/25/2022 2:42 PM CDT someone who was confirmed or suspected to have Coronavirus/COVID-19? documented as of this encounter Plan of Treatment Upcoming Encounters Date Type Specialty Care Team Description 09/26/2022 Appointment Speech Therapy Obdulio Barrera MD 420 [facility] 276 [place], [place] [address] Anabel Chew, TILE APPLICATOR [address] [place], [place] [address] 09/27/2022 Therapy Visit Physical Therapy Luisana Watkins, PT 2155 [place] [address] 09/29/2022 Virtual Visit Pain & Palliative Marilia Deluna, Care PhD [address] [place] [address] 09/30/2022 Office Visit Family Practice Aydee Burton, SANDSTONE SPLITTER WILDLIFE POLICY PROFESSIONAL [address] [place] [address] [phone] 10/03/2022 Therapy Visit Physical Therapy Una Reardon, PT 2[address] [place] [phone] 10/10/2022 Hospital Encounter Surgery Lesly Celaya MD [address] [place], [place] [address] 10/10/2022 Office Visit Surgery Lesly Celaya MD [address] [place], [place] [address] Ninoska Flowers PA-C [address] [place], [place] [address] 10/10/2022 Surgery Surgery Lesly Celaya, EXCISION, MASSES - MD back, abdomen, [address] extremity [place], [place] [phone] 10/11/2022 Virtual Visit Pharm Bryce Ruiz, Clari Banks, [address] [address] 10/14/2022 Appointment Speech Therapy Anabel Chew, TILE APPLICATOR [facility] 516 [facility] 396 [place], [place] [address] 10/21/2022 Office Visit Pulmonology Obdulio Barrera MD 420 [facility] 276 [place], [place] [address] 10/25/2022 PRE VISIT ENT Charo Burton MD Previsit [address] [place] [phone] 10/25/2022 Office Visit Charo Carter MD [address] [place] [address] 10/25/2022 Office Visit ENT Provider, 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 Bobbin Presser 10/28/2022 Appointment Speech Therapy Anabel Chew SLP [address] [place] [address] 11/17/2022 Appointment Speech Therapy Anabel Chew SLP [address] [address] 12/23/2022 Office Visit Neurology Colby Yeung MD [address] [place] [address] Scheduled Procedures Name Priority Associated Diagnoses Date/Time EXCISION, MASS, TORSO Lipoma of skin and subcuta neous 10/10/2022 7:30 AM CUSTOMER SERVICE TECHNICIAN tissue documented as of this encounter Goals Goal Patient Goal Associated Recent Patient-Stated? Author Type Problems Progress Attend Speciality Care Plan Establish Care 50% No Randal rn, Appointments (08/29/2022 Mago Murray, (DYSLEXIA TEACHER, 3:24 PM CDT) [facility] Psychiatry, Counseling, and the Sleep Clinic) Note: Formatting of this note is differe nt from the original. Barriers: Appointment availability. Strengths: Recognition of need, Care Marketing Ambassador rdination involvement. Patient expressed understanding of goal: [...] Lesly Celaya MD [facility] Surgery [facility] To address painful lumps in my abdomin [...] Name Priority Date/Time Associated Diagnosis Comme nts [place] MANUAL THERAPY, EA Routine 08/25/2022 3:18 PM CDT Neck pain 15 MIN documented in [...] as of this encounter Care Teams Sample Maker Original Relationship Specialty Start Date End Date Aydee Burton, PCP - General Nurse Practitioner - 05/17/21 SANDSTONE SPLITTER WILDLIFE POLICY PROFESSIONAL Family [address] [place] [address]992 Aydee Burton, Assigned PCP 04/28/21 SANDSTONE SPLITTER [facility] 0529 [place], [place] [address] Louisa Hood, Assigned Neuroscience 07/11/21 SANDSTONE SPLITTER WILDLIFE POLICY PROFESSIONAL Provider 500 [place] [address] [place], Assigned Sleep 08/01/21 Angel Turcios, Provider [address] [place] [address] Lesly Celaya MD Assigned Surgical 09/05/21 [address] [place] [address] Tawana Patel MA [facility] 09/30/21 Worker Ramses Mcpherson Assigned OBGYN 11/07/21 MD Onesimo Provider [address] [place] [address] Obdulio Barrera MD Critical Care 01/24/22 420 [facility] 276 [place] [address] Obdulio Barrera, Assigned Pulmonology 02/06/22 Provider 420 [facility] 276 [place], [place] [address] Lesvia Stanley, GHADA Cardiac Rehabilitation 03/03/22 03/03/23 [facility] Therapist [address] [facility] [address] [place], [place] [address] Marilia Deluna, PhD Assigned Behavioral 02/20/22 [address] [facility] Provider [place], [place] [address] Niyah Decker, [facility] Pharmacist Pharmacist 03/07/22 420 [facility] 812 [place], [place] [address] Lesvia Stanley, GHADA Cardiac Rehabilitation 03/17/22 03/17/23 [facility] Therapist [address] [phone] Delia Avila, Pharmacist Pharmacist 06/07/22 [facility] 909 [place] [address] Mago Swift, [facility] Lead Lay Up Operator Assayer - 08/05/21 Clinical Leela Jarvis, [facility] Pharmacist 07/26/22 05/15/23 3[address] [facility] [address] [place] [address] Niyah Decker, [facility] Assigned MTM 08/10/22 420 [facility] 812 [place] [address] documented as of this encounter
--- OUTSIDE RECORDS SUMMARY | 2022-09-21 03:58 | XMS_ITS | Encounter Summary ---
:1980 Author Organization [place] Address [address] [place] [address] Care Team Providers Name Role Phone Aydee Burton UPHOLSTERY CLEANER PLASTIC SURGERY MANAGER Primary Care Provider Aydee Burton APRN PLASTIC SURGERY MANAGER Unavailable [phone] Louisa Hood UPHOLSTERY CLEANER PLASTIC SURGERY MANAGER Unavailable [phone] Angel Hannah MD Unavailable Lesly Celaya MD Unavailable Tawana Patel MA Unavailable Unavailable Ramses Mcpherson MD Unavailable [phone] Obdulio Barrera MD Unavailable [phone] Obdulio Barrera MD Unavailable [phone] Lesvia Stanley Unavailable Marilia Deluna PhD Unavailable Niyah Decker [facility] Unavailable Lesvia Stanley Unavailable Delia Avila [facility] Unavailable [phone] JamisonMago [facility] Unavailable Leela Jarvis [facility] Unavailable Niyah Decker [facility] Unavailable Reason for Visit Reason Onset Date Comments Refill Request 08/11/2022 ondansetron (ZOFRAN ODT) 4 MG ODT tab Encounter Details Date Type Department Care Team Description [facility] [place] UPHOLSTERY CLEANER PLASTIC SURGERY MANAGER (ondansetron (ZOFRAN [address] ODT) 4 MG ODT tab ) [place] [address] [place], [place] [phone] (Wo rk) [id number] [phone] Social History Tobacco Use Types Packs/Day Years [...] er 08/05/2021 How often do you attend jehovah's witness or buddhist services? Never 08/05/2021 Do you belong to any clubs or organizations such as jehovah's witness N o 08/05/2021 groups, unions, fraternal or [...] place to sleep or slept in a jail (including now)? Sex Assigned at Date Recorded Female 11/09/2021 7:53 PM SPINNING MACHINE TENDER COVID-19 Exposure Response Date Recorded In the last 10 days, have you been in contact with No / Unsu re 08/12/2022 2:34 PM CDT someone who was confirmed or suspected to have Coronavirus/COVID-19? documented as of this encounter Miscellaneous Notes Telephone Encounter - Keren Dong RN - 08/12/2022 8:55 AM CDT Prescription approved per [facility] Refill Protocol. Keren Dong RN documented in this encounter Plan of Treatment Upcoming Encounters Date Type Specialty Care Team Description 09/26/2022 Appointment Speech Therapy Obdulio Barrera MD [address] [facility] [address] [place] [address] Anabel Chew, TECHNICAL INSTRUCTOR COURSE DEVELOPER [address] [place], [place] [address] 09/27/2022 Therapy Visit Physical Therapy Luisana Watkins, PT [address] [place] [address] 09/29/2022 Virtual Visit Pain & Palliative Marilia Deluna, Care PhD [address] [place] [address] 09/30/2022 Office Visit Family Practice Aydee Burton, ELADIO PLASTIC SURGERY MANAGER [address] [place] [address] [phone] 10/03/2022 Therapy Visit Physical Therapy Una Reardon, PT [address] [place] [phone] 10/10/2022 Hospital Encounter Surgery Lesly Celaya MD [address] [place], [place] [address] 10/10/2022 Office Visit Surgery Lesly Celaya MD [address] [place], [place] [address] Ninoska Flowers, FLORES-C [address] [place], [place] [address] 10/10/2022 Surgery Surgery Lesly Celaya, EXCISION, MASSES - MD back, abdomen, [address] extremity [place], [place] [phone] 10/11/2022 Virtual Visit Pharm Clari Stoll, [address] [address] 10/14/2022 Appointment Speech Therapy Anabel Chew, TECHNICAL INSTRUCTOR COURSE DEVELOPER [facility] [address] [facility] [address] [place], [place] [address] 10/21/2022 Office Visit Pulmonology Obdulio Barrera MD [address] [facility] [address] [place], [place] [address] 10/25/2022 PRE VISIT ENT Charo Burton MD Previsit [address] [place] [address] [phone] 10/25/2022 Office Visit Charo Carter MD [address] [place], [place] [address] 10/25/2022 Office Visit ENT Provider, Jeannette 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 Logistics Director 10/28/2022 Appointment Speech Therapy Anabel Chew SLP [address] [place] [address] 11/17/2022 Appointment Speech Therapy Anabel Chew SLP [address] [place] [address] 12/23/2022 Office Visit Neurology Colby Yeung MD [address] [place] [address] Scheduled Procedures Name Priority Associated Diagnoses Date/Time EXCISION, MASS, TORSO Lipoma of skin and subcuta neous 10/10/2022 7:30 AM SPINNING MACHINE TENDER tissue documented as of this encounter Goals Goal Patient Goal Associated Recent Patient-Stated? Author Type Problems Progress Attend Speciality Care Plan Establish Care 50% No Randal rn, Appointments (08/29/2022 Mago Murray, (ACID CORRECTION HAND, 3:24 PM CDT) [facility] Psychiatry, Counseling, and the Sleep Clinic) Note: Formatting of this note is differe nt from the original. Barriers: Appointment availability. Strengths: Recognition of need, Care Tank Charger rdination involvement. 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 Lipoma of skin and subcutaneous tissue Lipoma of other skin and subcutaneous ti ssue documented in this encounter Additional Health Concerns Problem Noted Date Establish Care 07/05/2022 Chronic Pain is not self-managed 07/05/2022 Assessment Noted Time PHQ-9 Depression Total Score: 16 06/24/2022 9:31 AM CD T documented as of this encounter Care Teams Rn Pain Management Relationship Specialty Start Date End Date Aydee Burton, PCP - General Nurse Practitioner - 05/17/21 UPHOLSTERY CLEANER PLASTIC SURGERY MANAGER Family [address] [place], [place] [phone] Aydee Burton, Assigned PCP 04/28/21 UPHOLSTERY CLEANER PLASTIC SURGERY MANAGER [address] [place], [place] [phone] Louisa Hood, Assigned Neuroscience 07/11/21 UPHOLSTERY CLEANER PLASTIC SURGERY MANAGER Provider [address] [place], [place] [address] [place], Assigned Sleep 08/01/21 Angel Turcios, Provider [address] [place] [address] Lesly Celaya MD Assigned Surgical 09/05/21 [address] [facility] [place] [address] [facility] Worker Ramses Mcpherson Assigned OBGYN 11/07/21 MD Onesimo Provider [address] [place], [place] [address] Obdulio Barrera MD Critical Care 01/24/[address] [place] [address] 276 [place], [place] [address] Obdulio Barrera, Assigned Pulmonology 02/06/[address] [place] [address] 276 [place], [place] [address] Lesvia Stanley, GHADA Cardiac Rehabilitation 03/03/22 03/03/23 [facility] HOSP Therapist [address] [address] Marilia Deluna, PhD Assigned Behavioral 02/20/[address] [facility] Provider [place], [place] [address] Niyah Decker, [facility] Pharmacist Pharmacist 03/07/[address] [place] [address] 8[address] [place], [place] [address] Lesvia Stanley, GHADA Cardiac Rehabilitation 03/17/22 03/17/23 [facility] HOSP Therapist [address] [address] Delia Avila, Pharmacist Pharmacist 06/07/22 [facility] [address] [place], [place] [address] Mago Swift [facility] Lead Plumber Cub Furnace Charging Machine Operator - 08/05/21 Clinical Leela Jarvis, [facility] Pharmacist 07/26/22 05/15/[address] [facility] [place] [address] Niyah Decker, [facility] Assigned MTM 08/10/22 [address] [facility] [address] Pharmacist [place], [place] [address] documented as of this encounter
--- OUTSIDE RECORDS SUMMARY | 2022-09-21 03:58 | XMS_ITS | Encounter Summary ---
:1980 Author Organization [place] Address [address] [place] [address] Care Team Providers Name Role Phone Aydee Burton EMERGENCY DOCTOR PRESS TENDER STAR SIGNAL Primary Care Provider [phone] Aydee Burton APRN PRESS TENDER STAR SIGNAL Unavailable [phone] Louisa Hood EMERGENCY DOCTOR PRESS TENDER STAR SIGNAL Unavailable [phone] Angel Hannah MD Unavailable Lesly Celaya MD Unavailable Tawana Patel MA Unavailable Unavailable Ramses Mcpherson MD Unavailable [phone] Obdulio Barrera MD Unavailable [phone] Obdulio Barrera MD Unavailable [phone] Lesvia Stanley Unavailable Marilia Deluna PhD Unavailable Niyah Decker [facility] Unavailable Lesvia Stanley Unavailable Delia Avila [facility] Unavailable [phone] JamisonMago [facility] Unavailable Leela Jarvis [facility] Unavailable Niyah Decker Vania [facility] Unavailable Reason for Visit Reason Comments Follow Up Review EEG- headaches and sp ell of altered cognition Encounter Details Date Type Department Care Team Description 08/16/2022 Office Visit [facility] Anjana, Tension he adache (Primary Dx); Neurology Clinics - Colby lyn occipital neuralgia; Damari Carbajal MD Speivn of altered cognition; [address] [facility] [address] Cervicalgia [facility], [address] [place] [address] [place] [address] [phone] Social History Tobacco Use Types Packs/Day Years [...] er 08/05/2021 How often do you attend nondenominational or confucianist services? Never 08/05/2021 Do you belong to any clubs or organizations such as nondenominational N o 08/05/2021 groups, unions, fraternal or [...] at Date Recorded Female 11/09/2021 7:53 PM HARDBOARD SUPERVISOR COVID-19 Exposure Response Date Recorded In the last 10 days, have you been in contact with No / Unsu re 08/16/2022 11:19 AM CDT someone who was confirmed or suspected to have Coronavirus/COVID-19? documented as of this encounter Last Filed Vital Signs Vital Sign Reading Time Taken Comments Blood Pressure 124/76 08/16/2022 11:37 AM CDT Pulse 110 08/16/2022 11:37 AM CDT Temperature - - Respiratory Rate - - Oxygen Saturation 97% 08/16/2022 11:37 AM CDT Inhaled Oxygen Concentration - - Weight 93.3 kg (205 lb 9.6 oz) 08/16/2022 11:37 AM CDT Height 165.1 cm (5' 5) 08/16/2022 11:37 AM CDT Body Mass Index 34.21 08/16/2022 11:37 AM CDT documented in this encounter Patient Instructions Patient InstructionsColby Yeung MD - 08/16/2022 11:30 AM CDT AFTER VISIT SUMMARY (AVS): At today's visit we thoroughly discussed current symptoms, evaluation results, diagnosis, available treatment options, and the plan. We decided not to make any medication changes. Please continue the current dose of Lyrica along withphysical therapy. Please keep the headache diary and bring it to the next follow-up visit or upload via My Chart. Next follow-up appointment is in the next 4 months or earlier if needed. Please do not hesitate to call me with any questions or concerns. Thanks. documented in this encounter Progress Notes Colby Yeung MD - 08/16/2022 11:30 AM CDT ESTABLISHED PATIENT NEUROLOGY NOTE DATE OF VISIT: 08/16/2022 CLINIC LOCATION: [facility] PATIENT NAME: Marta Hill DATE of : 1980 REASON FOR VISIT: Chief Complaint Patient presents with ??? Follow Up Review EEG- headaches and spell of altered cognition SUBJECTIVE: HISTORY OF PRESENT ILLNESS: Patient is here to follow up regarding multifactorial headache disorder,cervicalgia, and spells of altered cognition. Please refer to my initial note from 06/30/2022 for further information. Since the last visit, the patient reports headache improvement after switching to Lyrica. Her dose was increased to 50 mg 3 times per day by her pain clinic provider at the end of July. She also received trigger point injections at that time, which were quite helpful. She feels that physical therapy helps a lot, but the effect is only lasting for 2 to 3 days. She denies interval development of new focal neurological symptoms. Cervical spine MRI from 07/08/2022 was negative for significant central or foraminal stenosis. Disc-osteophyte complex at C6-C7 was noted. Images were personally reviewed and independently interpreted. 3-hour video/EEG from 08/01/2022 was normal. EXAM: Physical Exam: Vitals: BP 124/76 (BP Location: Right arm, Patient Position: Sitting, Cuff Size: Adult Regular) Pulse 110 Ht 1.651 m (5' 5) Wt 93.3 kg (205 lb 9.6 oz) LMP 12/11/2021 (Exact Date) SpO2 97% BMI 34.21 kg/m?? General: pt is in NAD, cooperative. Skin: normal turgor, moist mucous membranes, no lesions/rashes noticed. HEENT: ATNC, white sclera, normal conjunctiva. Respiratory: Symmetric lung excursion, no accessory respiratory muscle use. Abdomen: Non distended. Neurological: awake, cooperative, follows commands, no exam changes compared to the initial visit. ASSESSMENT AND PLAN: Assessment: 42 year old female patient presents for follow-up of left cervical pain, radiating to shoulder and hand along with bifrontotemporal headaches and episodes of blanking out. Regarding her neck pain, cervical spine MRI was negative for neuroforaminal narrowing or central canal stenosis. She feels that physical therapy is helpful. We discussed that Lyrica dose could be increased in the future if necessary, but I would recommend continuing the same dose for now since it was just increased recently. We also previously discussed option of the left occipital nerve block with steroid after imaging is completed. The patient is already established with our pain clinic and recently received trigger point injections, which were helpful. We will keep in mind occipital nerve block as a future option if pain worsens in the future. For blanking out spells, EEG was negative. Would suggest evaluation with sleep specialist. Diagnoses: ICD-10-CM 1. Tension headache G44.209 2. Bilateral occipital neuralgia M54.81 3. Spell of altered cognition R41.89 Plan: At today's visit we thoroughly discussed current symptoms, evaluation results, diagnosis, available treatment options, and the plan. We decided not to make any medication changes. I recommended to continue the current dose of Lyrica along with physical therapy. I advised the patient to keep the headache diary and bring it to the next follow-up visit or upload via My Chart. Next follow-up appointment is in the next 4 months or earlier if needed. Total Time: 21 minutes spent on the date of the encounter doing chart review, history and exam, documentation and further activities per the note. Colby Yeung MD [facility] Neu[facility] (Chart documentation was completed in part with Peerby voice-recognition software. Even though reviewed, some grammatical, spelling, and word errors may remain.) Belinda Ellis Valerio - 08/16/2022 11:30 AM CDT Marta Hill is a 42 year old female who presents for: Chief Complaint Patient presents with ??? Follow Up Review EEG- headaches and spell of altered cognition Initial Vitals: BP 124/76 (BP Location: Right arm, Patient Position: Sitting, Cuff Size: Adult Regular) Pulse 110 Ht 1.651 m (5' 5) Wt 93.3 kg (205 lb 9.6 oz) LMP 12/11/2021 (Exact Date) SpO2 97% BMI 34.21 kg/m?? Estimated body mass index is 34.21 kg/m?? as calculated from the following: Height as of this encounter: 1.651 m (5' 5). Weight as of this encounter: 93.3 kg (205 lb 9.6 oz).. Body surface area is 2.07 meters squared. BPcompleted using cuff size: peggy Ellis documented in this encounter Plan of Treatment Upcoming Encounters Date Type Specialty Care Team Description 09/26/2022 Appointment Speech Therapy Obdulio Barrera MD [address] [facility] [address] [place], [place] [address] Anabel Chew, CONSULTING PSYCHOLOGIST [address] [place] [address] 09/27/2022 Therapy Visit Physical Therapy Luisana Watkins, PT [address] [place] [address] 09/29/2022 Virtual Visit Pain & Palliative Marilia Deluna, Care PhD [address] [place] [address] 09/30/2022 Office Visit Family Practice Aydee Burton, ELADIO [facility] [address] [place] [phone] 10/03/2022 Therapy Visit Physical Therapy Una Reardon, PT [address] [place] [phone] 10/10/2022 Hospital Encounter Surgery Lesly Celaya MD [address] [facility] [place] [place] [address] 10/10/2022 Office Visit Surgery Lesly Celaya MD [address] [place], [place] [address] Ninoska Flowers PA-C [address] [place] [address] 10/10/2022 Surgery Surgery Lesly Celaya, EXCISION, MASSES - MD back, abdomen, [address] [place] [address] 10/11/2022 Virtual Visit Pharm Clari Stoll, [facility] [address] [id number] [place] [address] 10/14/2022 Appointment Speech Therapy Anabel Chew, CONSULTING PSYCHOLOGIST [address] [address] 10/21/2022 Office Visit Pulmonology Obdulio Barrera MD [address] [place] [address] 10/25/2022 PRE VISIT ENT Charo Burton MD Previsit [address] [place] [phone] 10/25/2022 Office Visit Charo Carter MD [address] [place] [address] 10/25/2022 Office Visit ENT Provider, 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 Tester/Lift Trucker 10/28/2022 Appointment Speech Therapy Anabel Chew, CONSULTING PSYCHOLOGIST [address] [address] 11/17/2022 Appointment Speech Therapy Anabel Chew, CONSULTING PSYCHOLOGIST [address] [address] 12/23/2022 Office Visit Neurology Colby Yeung MD [address] [place], [place] [address] Scheduled Procedures Name Priority Associated Diagnoses Date/Time EXCISION, MASS, TORSO Lipoma of skin and subcuta neous 10/10/2022 7:30 AM HARDBOARD SUPERVISOR tissue documented as of this encounter Goals Goal Patient Goal Associated Recent Patient-Stated? Author Type Problems Progress Attend Speciality Care Plan Establish Care 50% Claudia Tee rn, Appointments (08/29/2022 Mago Murray, (ORCHARD MANAGER, 3:24 PM CDT) [facility] Psychiatry, Counseling, and the Sleep Clinic) Note: Formatting of this note is differe nt from the original. Barriers: Appointment availability. Strengths: Recognition of need, Care Unionmelt Operator rdination involvement. Patient expressed understanding of [...] Lesly Celaya MD [facility] [place] To address painful lumps in my abdomin [...] Mago Prieto well-managed. self-managed 3:14 PM CDT) MARISA Murray [...] as of this encounter Visit Diagnoses Diagnosis Tension headache - Primary Bilateral occipital neuralgia Other syndromes affecting cervical regio n Spell of altered cognition Other signs and symptoms involving cogni tion Cervicalgia Lipoma of skin and subcutaneous tissue Lipoma of other skin and subcutaneous ti ssue documented in this encounter Additional Health Concerns Problem Noted Date Establish Care 07/05/2022 Chronic Pain is not self-managed 07/05/2022 Assessment Noted Time PHQ-9 Depression Total Score: 16 06/24/2022 9:31 AM CD T documented as of this encounter Care Teams Bakery Products Checker Relationship Specialty Start Date End Date Aydee Burton, PCP - General Nurse Practitioner - 05/17/21 EMERGENCY DOCTOR PRESS TENDER STAR SIGNAL Family [address] [place], [place] [address] Aydee Burton, Assigned PCP 04/28/21 EMERGENCY DOCTOR PRESS TENDER STAR SIGNAL [address] [place] [address] Louisa Hood, Assigned Neuroscience 07/11/21 EMERGENCY DOCTOR PRESS TENDER STAR SIGNAL Provider [address] [place], [place] [phone] [place], Assigned Sleep 08/01/21 Angel Turcios, Provider [address] [place], [place] [phone] Lesly Celaya MD Assigned Surgical 09/05/21 [address] [facility] Provider [place], [place] [address] Tawana Patel MA [facility] 09/30/21 Worker Ramses Mcpherson Assigned OBGYN 11/07/21 MD Onesimo Provider [address] [place], [place] [phone] Obdulio Barrera MD Critical Care 01/24/22 [address] [facility] [address] [place], [place] [address] Obdulio Barrera, Assigned Pulmonology 02/06/22 MD Provider [address] [place] [phone] Lesvia Stanley, GHADA Cardiac Rehabilitation 03/03/22 03/03/23 [facility] HOSP Therapist [address] [place], [place] [address] Marilia Deluna, PhD Assigned Behavioral 02/20/22 [address] [facility] [place] [address] Niyah Decker, [facility] Pharmacist Pharmacist 03/07/22 [address] [facility] [address] [place], [place] [address] Lesvia Stanley, GHADA Cardiac Rehabilitation 03/17/22 03/17/23 [facility] HOSP Therapist [address] [place] [address] Delia Avila, Pharmacist Pharmacist 06/07/22 [facility] [address] [place], [place] [address] Mago Swift, [facility] Lead Clinical Team Lead Gear Shaper Set Up Operator - 08/05/21 Clinical Leela Jarvis RPH Pharmacist 07/26/22 05/15/23 [address] [facility] [place] [address] Niyah Decker RPH Assigned [place] 08/10/22 [address] [facility] [address] Pharmacist [place] [address] documented as of this encounter
--- OUTSIDE RECORDS SUMMARY | 2022-09-21 03:59 | XMS_ITS | Encounter Summary ---
:1980 Author Organization [place] Address [address] [place] [address] Care Team Providers Name Role Phone Aydee Burton RETAIL BUSINESS ANALYST CAD DEVELOPER Primary Care Provider [phone] Aydee Burton APRN CAD DEVELOPER Unavailable [phone] Louisa Hood RETAIL BUSINESS ANALYST CAD DEVELOPER Unavailable [phone] Angel Hannah MD Unavailable Lesly Celaya MD Unavailable Tawana Patel MA Unavailable Unavailable Ramses Mcpherson MD Unavailable [phone] Obdulio Barrera MD Unavailable [phone] Obdulio Barrera MD Unavailable Lesvia Stanley Unavailable Marilia Deluna PhD Unavailable Niyah Decker [facility] Unavailable Lesvia Stanley Unavailable Delia Avila [facility] Unavailable [phone] JamisonKikiMago Terri [facility] Unavailable Niyah Decker [facility] Unavailable Reason for Referral Rehab Therapy Integrated Services (Routine: Next available opening) - Authorized Specialty Diagnoses / Procedures Referred By Contact Refer red To Contact Diagnoses Severe persistent asthma without complication Vocal cord dysfunction Obdulio Barrera, YANY [facility] [place] [phone] [place], [place] [address] Referral ID Status Reason Start Date Expiration Date Visits V isits Requested Authorized [id number] Authorized 09/05/2022 11/12/2022 365 365 Reason for Visit Reason Comments Follow Up Moderate persistent asthma w ithout complication Encounter Details Date Type Department Care Team Description 07/13/2022 Office Visit [facility] Obdulio Jason p ersistent asthma without complication (Primary Dx); Specialty Clinic MD Leo Vocal cord dysfunction [address] [place] [address] [phone] Social History Tobacco Use Types Packs/Day Years [...] er 08/05/2021 How often do you attend catholic or buddhist services? 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 documented as of this encounter Last Filed Vital Signs Vital Sign Reading Time Taken Comments Blood Pressure 115/77 07/13/2022 3:26 PM CDT Pulse 118 07/13/2022 3:26 PM CDT Temperature - - Respiratory Rate - - Oxygen Saturation 98% 07/13/2022 3:26 PM CDT Inhaled Oxygen Concentration - - Weight 92.5 kg (204 lb) 07/13/2022 3:26 PM CDT Height - - Body Mass Index 33.95 07/06/2022 12:29 PM CDT documented in this encounter Patient Instructions AttachmentsThe following attachments cannot be sent through Care Everywhere. Vocal Cord Dysfunction (VCD) (Yemeni)documented in this encounter Progress Notes Obdulio Barrera MD - 07/13/2022 3:30 PM CDT Pulmonary Clinic Note Date of Service: 07/13/2022 Chief Complaint Patient presents with ??? Follow Up Moderate persistent asthma without complication A/P: 42F being seen for severe persistent asthma. Remains symptomatic despite maximal inhaler therapy. ACT 8. Today, symptoms more c/w vocal cord dysfunction. [place] VCD Index 7. - speech therapy referral - continue LAMA (Spiriva) - continue ICS-LABA (Symbicort) - continue prn albuterol - if remains significantly symptomatic despite speech therapy will start biologic therapy History: 42F seen for f/u asthma. Last seen 03/2022. She is prescribed LAMA (Spiriva), ICS-LABA (Symbicort), and albuterol. Has been up and down over the summer. COLE w/ fast walking and stairs. Associated chest tightness. Coughs daily, typically dry. Waking up at night w/ cough. Wakes up SOB. Using Spiriva and Symbicort. Using albuterol ~3x/day, which helps. Triggered by odors. No definitive throat tightness. Has hoarseness. No wheezing. Smoking:??never Hot tub exposure:??no? Recent travel:??no? Hx of incarceration:??no? Bird exposure:??no? Animal exposure:??bats and mice found in their home over the past year? Inhalation exposure:??dust and potential mold? 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 BP 115/77 (BP Location: Left arm, Patient Position: Sitting, Cuff Size: Adult Regular) Pulse 118 Wt 92.5 kg (204 lb) LMP 12/11/2021 (Exact Date) SpO2 98% BMI 33.95 kg/m?? Gen: well-appearing HEENT: Mallampati I Card: RRR Pulm: clear bilaterally Abd: soft MSK: no edema Skin: no obvious rash Psych: normal affect Neuro: alert and oriented Labs: Personally reviewed Abs eos (01/2022) - 300 Imaging/Studies: Personally reviewed CTPE (02/2022) - no acute abnormality, no PE CXR (01/2022) - clear CTPE (01/2022) - mild air-trapping, mild fibroatelectasis, no PE ?? PFTs (11/2021) - normal pulmonary function ?? TTE (10/2021) - EF 55-60% Past Medical History: Diagnosis Date ??? Arthritis 2021. Start of ? Embow? Neck? Depressive disorder as teen and on ??? Hypertension 2002 only during ??? Sleep apnea Borderline 4.8 per testing. (<5) Takes longer to wake up. ??? Uncomplicated asthma not sure from being sick Past Surgical History: Procedure Laterality Date ??? BREAST SURGERY Breast Augmuntation ??? COSMETIC SURGERY not sure breast augmentation ??? ENT SURGERY teen years sinus for bloody noses ??? ESOPHAGOSCOPY, GASTROSCOPY, DUODENOSCOPY (EGD), COMBINED Left 07/06/2022 Procedure: ESOPHAGOGASTRODUODENOSCOPY (EGD) (Fv) with brushing using cytology brush; Surgeon: Marvin Villarreal MD; Location: [facility] ??? EXCISE MASS BACK N/A 10/12/2021 Procedure: EXCISION MULTIPLE LIPOMAS - bilateral legs, arms and trunk; Surgeon: Lesly Celaya MD; Location: [facility] OR ??? GENITOURINARY SURGERY Tubal ligation and ablasion ??? INSOLE CEMENTER SURGERY not sure tubal ligation and ablasion ? ? HEAD & NECK SURGERY Sinus ??? LAPAROSCOPIC HYSTERECTOMY TOTAL Bilateral 12/28/2021 Procedure: TOTAL LAPAROSCOPIC HYSTERECTOMY WITH BILATERAL SALPINGECTOMY; Surgeon: Ramses Mcpherson MD; Location: [facility] OR ??? ORTHOPEDIC SURGERY 2020 radial head fracture 3 screws, left elbow ??? RADIOFREQUENCY ABLATION, UTERINE 2018 Family History Problem Relation Age of Onset [...] ??? Colon Cancer No family hx of Social History Socioeconomic History ??? Marital status: Spouse name: Not on file ??? Number of children: Not on file ??? Years of education: Not on file ??? Highest education level: Not on file Occupational History ??? Not on file Tobacco Use ??? Smoking status: Never Smoker ??? Smokeless tobacco: Never Used Vaping Use ??? Vaping Use: Never used Substance and Sexual Activity ??? Alcohol use: Not Currently Comment: None for 1.5 personal choice. Family hx. ??? Drug use: Not Currently ??? Sexual activity: Yes Partners: Male control/protection: Female Surgical Other Topics Concern ??? Parent/sibling w/ CABG, NH or angioplasty before 65F 55M? No Social History Narrative ??? Not on file Social Determinants of Health Financial Resource Strain: High Risk ??? Difficulty of Paying Living Expenses: Very hard Food Insecurity: Food Insecurity Present ??? Worried About Running Out of Food in the Last Year: Sometimes true ??? Ran Out of Food in the Last Year: Sometimes true Transportation Needs: Unmet Transportation Needs ??? Lack of Transportation (Medical): Yes ??? Lack of Transportation (Non-Medical): Yes Physical Activity: Insufficiently Active ??? Days of Exercise per Week: 6 days ??? Minutes of Exercise per Session: 20 min Stress: Stress Concern Present ??? Feeling of Stress : Very much Social Connections: Socially Isolated ??? Frequency of Communication with Friends and Family: Once a week ??? Frequency of Social Gatherings with Friends and Family: Never ??? Attends Druze Services: Never ??? Active Member of Clubs or Organizations: No ??? Attends Club or Organization Meetings: Not on file ??? Marital Status: Intimate Partner Violence: Not on file Housing Stability: High Risk ??? Unable to Pay for Housing in the Last Year: Yes ??? Number of Places Lived in the Last Year: 1 ??? Unstable Housing in the Last Year: No 35 minutes spent reviewing chart, reviewing test results, talking with and examining patient, formulating plan, and documentation on the day of the encounter. Obdulio Barrera MD Pulmonary and Critical Care Medicine [facility] documented in this encounter Nursing Notes Crista Holden - 07/13/2022 3:30 PM CDT Chief Complaint Patient presents with ??? Follow Up Moderate persistent asthma without complication Vitals: 07/13/22 1526 BP: 115/77 BP Location: Left arm Patient Position: Sitting Cuff Size: Adult Regular Pulse: 118 SpO2: 98% Weight: 92.5 kg (204 lb) Body mass index is 33.95 kg/m??. CARLOS ALBERTO Cox documented in this encounter Plan of Treatment Upcoming Encounters Date Type Specialty Care Team Description 09/26/2022 Appointment Speech Therapy Obdulio Barrera MD [address] [facility] 276 [place], [place] [address] Anabel Chew, CHEMISTRY ACCOUNT MANAGER [address] [place], [place] [address] 09/27/2022 Therapy Visit Physical Therapy Luisana Watkins, PT [address] [place] [address] 09/29/2022 Virtual Visit Pain & Palliative Marilia Deluna, [facility] PhD [address] [place], [place] [address] 09/30/2022 Office Visit Family Practice Aydee Burton, RETAIL BUSINESS ANALYST CAD DEVELOPER [address] [place], [place] [phone] 10/03/2022 Therapy Visit Physical Therapy Una Reardon, PT [address] [place] [phone] 10/10/2022 Hospital Encounter Surgery Lesly Celaya MD [address] [place], [place] [address] 10/10/2022 Office Visit Surgery Lesly Celaya MD [address] [place], [place] [address] Ninoska Flowers, PA-C [address] [place], [place] [address] 10/10/2022 Surgery Surgery Lesly Celaya, EXCISION, MASSES - MD back, abdomen, [address] extremity [place], [place] [phone] 10/11/2022 Virtual Visit Pharm Bryce Ruiz, Clari Banks, [address] [phone] 10/14/2022 Appointment Speech Therapy Anabel Chew, CHEMISTRY ACCOUNT MANAGER [address] [address] 10/21/2022 Office Visit Pulmonology Obdulio Barrera MD [address] [place] [phone] 10/25/2022 PRE VISIT ENT Charo Burton MD Previsit [address] [place] [phone] 10/25/2022 Office Visit Charo Carter MD [address] [place] [address] 10/25/2022 Office Visit ENT Provider, 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 Nursing Technician 10/28/2022 Appointment Speech Therapy Anabel Chew, CHEMISTRY ACCOUNT MANAGER [address] [address] 11/17/2022 Appointment Speech Therapy Anabel Chew, CHEMISTRY ACCOUNT MANAGER [address] [place] [address] 12/23/2022 Office Visit Neurology Colby Yeung MD [address] [place] [address] Scheduled Procedures Name Priority Associated Diagnoses Date/Time EXCISION, MASS, TORSO Lipoma of skin and subcuta neous 10/10/2022 7:30 AM STERILE PRODUCTS PROCESSOR tissue Scheduled Referrals Name Type Priority Associated Diagnoses Order S chedule Speech Therapy Referral Routine: Next Severe persistent Expecte d: Referral available opening asthma without 07/13/20 22 complication (Approximate), Vocal cord Expires: dysfunction 07/13/2023 documented as of this encounter Goals Goal Patient Goal Associated Recent Patient-Stated? Author Type Problems Progress Attend Speciality Care Plan Establish Care 50% No Karene rn, Appointments (08/29/2022 Mago Murray (BUILD MANAGER, 3:24 PM CDT) [facility] Psychiatry, Counseling, and the Sleep Clinic) Note: Formatting of this note is differe nt from the original. Barriers: Appointment availability. Strengths: Recognition of need, Care Dialysis Biomed Technician rdination involvement. Patient expressed understanding of goal: [...] on: 08/16/2022 9:45 AM Lesly Celaya MD [facility] Surgery [facility] To address painful lumps in my [...] as of this encounter Visit Diagnoses Diagnosis Severe persistent asthma without complic ation - Primary Vocal cord dysfunction Other diseases of vocal cords Lipoma of skin and subcutaneous tissue Lipoma of other skin and subcutaneous ti ssue documented in this encounter Additional Health Concerns Problem Noted Date Establish Care 07/05/2022 Chronic Pain is not self-managed 07/05/2022 Assessment Noted Time PHQ-9 Depression Total Score: 16 06/24/2022 9:31 AM CD T documented as of this encounter Care Teams General Clerk Relationship Specialty Start Date End Date Aydee Burton, PCP - General Nurse Practitioner - 05/17/21 RETAIL BUSINESS ANALYST CAD DEVELOPER Family [address] [place], [place] [address] Aydee Burton, Assigned PCP 04/28/21 RETAIL BUSINESS ANALYST [facility] [address] [place] [address] Louisa Hood, Assigned Neuroscience 07/11/21 RETAIL BUSINESS ANALYST CAD DEVELOPER Provider [address] [place] [address] [place], Assigned Sleep 08/01/21 Angel Turcios, Provider [address] [place] [address] Lesly Celaya MD Assigned Surgical 09/05/21 [address] [facility] [address] Tawana Patel [facility] 09/30/21 Worker Ramses Mcpherson Assigned OBGYN 11/07/21 MD Onesimo Provider [address] [place] [address] Obdulio Barrera MD Critical Care 01/24/22 MD [address] [facility] 276 [place] [address] Obdulio Barrera, Assigned Pulmonology 02/06/22 Provider [address] [facility] 276 [place], [place] [address] Lesvia Stanley, GHADA Cardiac Rehabilitation 03/03/22 03/03/23 [facility] Therapist [address] [place], [place] [address] Marilia Deluna, PhD Assigned Behavioral 02/20/22 [address] [facility] Provider [place], [place] [address] Niyah Decker, [facility] Pharmacist Pharmacist 03/07/22 [address] [facility] 8[address] [place], [place] [address] Lesvia Stanley, GHADA Cardiac Rehabilitation 03/17/22 03/17/23 [facility] Therapist [address] [phone] Delia Avila, Pharmacist Pharmacist 06/07/22 [facility] [address] [place] [address] Mago Swift, [facility] Lead Director Investment Banking Service Engine Repairer - 08/05/21 Clinical Niyah Decker, [facility] Assigned MTM 06/25/22 07/29/22 [address] [facility] 812 [place] [address] documented as of this encounter
--- OUTSIDE RECORDS SUMMARY | 2022-09-21 03:59 | XMS_ITS | Encounter Summary ---
:1980 Author Organization [place] Address [address] [place] [address] Care Team Providers Name Role Phone Aydee Burton INFRASTRUCTURE TECHNICIAN DIRECTOR WOMEN Primary Care Provider Aydee Burton APRN DIRECTOR WOMEN Unavailable [phone] Louisa Hood INFRASTRUCTURE TECHNICIAN DIRECTOR WOMEN Unavailable [phone] Angel Hannah MD Unavailable Lesly Celaya MD Unavailable Tawana Patel MA Unavailable Unavailable Ramses Mcpherson MD Unavailable [phone] Obdulio Barrera MD Unavailable [phone] Obdulio Barrera MD Unavailable [phone] Lesvia Stanley Unavailable Marilia Deluna PhD Unavailable Niyah Decker [facility] Unavailable Lesvia Stanley Unavailable Delia Avila [facility] Unavailable [phone] Mago Swift [facility] Unavailable SimonaLeela [facility] Unavailable Encounter Details Date Type Department Care Team Description 08/01/2022 Ancillary M Physicians DAVID Yeung, Mikal of altered Procedure Epilepsy Care EEG Colby cognition 5795 MD Gurwinder Li [address] [facility] [address] [place] [address] [place] [address] (Work) [phone] Social History Tobacco Use Types Packs/Day Years [...] er 08/05/2021 How often do you attend gnosticist or anabaptism services? Never 08/05/2021 Do you belong to any clubs or organizations such as gnosticist N o 08/05/2021 groups, unions, fraternal or [...] at Date Recorded Female 11/09/2021 7:53 PM HISTORY INSTRUCTOR COVID-19 Exposure Response Date Recorded In the last 10 days, have you been in contact with No / Unsu re 08/01/2022 1:04 PM CDT someone who was confirmed or suspected to have Coronavirus/COVID-19? documented as of this encounter Plan of Treatment Upcoming Encounters Date Type Specialty Care Team Description 09/26/2022 Appointment Speech Therapy Obdulio Barrera MD [address] [facility] [address] [place], [place] [address] Anabel Chew, BURNER TENDER [place] [address] [facility] [address] [place], [place] [address] 09/27/2022 Therapy Visit Physical Therapy Luisana Watkins, PT [address] [place] [address] 09/29/2022 Virtual Visit Pain & Palliative Marilia Deluna, [facility] PhD [address] [place], [place] [address] 09/30/2022 Office Visit Family Practice Aydee Burton, INFRASTRUCTURE TECHNICIAN DIRECTOR WOMEN [address] [place] [address] 10/03/2022 Therapy Visit Physical Therapy Una Reardon, PT [address] [place] [address] 10/10/2022 Hospital Encounter Surgery Lesly Celaya MD [address] [place], [place] [phone] 10/10/2022 Office Visit Surgery Lesly Celaya MD [address] [place] [address] Ninoska Flowers PA-C [address] [facility] 300 [place] [address] 10/10/2022 Surgery Surgery Lesly Celaya, EXCISION, MASSES - MD back, abdomen, [address] [place] [address] 10/11/2022 Virtual Visit Clari Su, [facility] [address] [place] [phone] [place], [place] [address] 10/14/2022 Appointment Speech Therapy Anabel Chew, BURNER TENDER [address] [address] 10/21/2022 Office Visit Pulmonology Obdulio Barrera MD [address] [address] 10/25/2022 PRE VISIT ENT Charo Burton MD Previsit [address] [place], [place] [address] 10/25/2022 Office Visit ENT Charo Burton MD [address] [place] [address] 10/25/2022 Office Visit ENT Provider, 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 Shot Hole Driller 10/28/2022 Appointment Speech Therapy Anabel Chew SLP [address] [address] 11/17/2022 Appointment Speech Therapy Anabel Chew SLP [address] [address] 12/23/2022 Office Visit Neurology Colby Yeung MD [address] [place] [address] Scheduled Procedures Name Priority Associated Diagnoses Date/Time EXCISION, MASS, TORSO Lipoma of skin and subcuta neous 10/10/2022 7:30 AM HISTORY INSTRUCTOR tissue documented as of this encounter Goals Goal Patient Goal Associated Recent Patient-Stated? Author Type Problems Progress Attend Speciality Care Plan Establish Care 50% Claudia Tee rn, Appointments (08/29/2022 Mago Murray, (DEBURR TECHNICIAN, 3:24 PM CDT) [facility] Psychiatry, Counseling, and the Sleep Clinic) Note: Formatting of this note is differe nt from the original. Barriers: Appointment availability. Strengths: Recognition of need, Care Healthcare Corporate Account Director rdination involvement. Patient expressed understanding of goal: [...] on: 08/16/2022 9:45 AM Lesly Celaya MD [facility] [place] To address painful lumps in my abdomin [...] Procedure Name Priority Date/Time Associated Comments Diagnosis EEG VIDEO 2-12 HRS Routine 08/01/2022 4:39 PM Spell of altered Results for this CONTINUOUS CDT cognition procedure are i n MONITORING the results section. documented in this encounter Results EEG Video 2-12 hrs Continuous Monitoring (08/01/2022 4:39 PM CDT) Specimen (Source) Anatomical Location Collection Method / Collectio n Time Received Time / Laterality Volume Narrative [facility] - 08/01/2022 8:18 PM CDT EEG Video 2-12 hrs Continuous Monitoring Result [facility] EEG #[id number] (Out-Patient Vi vitaliy-EEG Monitoring) Name: ? Marta [...] monitoring was utilized and periodically reviewed by glass technologist and the physician for electroclinical correl [...] Castro M.D., Professor of Neur ology Colby Yeung MD IMG EEG ORDERABLES Performing Organization Address City/State/ZIP Code Phon e Number [id number] documented in this encounter Visit Diagnoses Diagnosis Spell of altered cognition Other signs and symptoms involving cogni tion Lipoma of skin and subcutaneous tissue Lipoma of other skin and subcutaneous ti ssue documented in this encounter Additional Health Concerns Problem Noted Date Establish Care 07/05/2022 Chronic Pain is not self-managed 07/05/2022 Assessment Noted Time PHQ-9 Depression Total Score: 16 06/24/2022 9:31 AM CD T documented as of this encounter Care Teams Hazardous Materials Tanker Driver Relationship Specialty Start Date End Date Aydee Burton, PCP - General Nurse Practitioner - 05/17/21 INFRASTRUCTURE TECHNICIAN DIRECTOR WOMEN Family [address] [place] [address] Aydee Burton, Assigned PCP 04/28/21 INFRASTRUCTURE TECHNICIAN DIRECTOR WOMEN [address] [place], [place] [phone] ErwinLouisa Grisel, Assigned Neuroscience 07/11/21 INFRASTRUCTURE TECHNICIAN DIRECTOR WOMEN Provider [address] [place], [place] [address] [place], Assigned Sleep 08/01/21 Angel Turcios, Provider [address] [place], [place] [phone] Lesly Celaya MD Assigned Surgical 09/05/21 [address] [facility] Provider [place], [place] [phone] Tawana Patel [facility] 09/30/21 Worker Ramses Mcpherson Assigned OBGYN 11/07/21 MD Onesiom Provider [address] [place], [place] [phone] Obdulio Barrera MD Critical Care 01/24/[address] [place] [address] Obdulio Barrera, Assigned Pulmonology 02/06/[address] [address] Lesvia Stanley EP Cardiac Rehabilitation 03/03/22 03/03/23 [facility] Therapist [address] [place] [address] Marilia Deluna, PhD Assigned Behavioral 02/20/22 [address] [facility] Provider [place], [place] [phone] Niyah Decker, [facility] Pharmacist Pharmacist 03/07/22 420 [facility] 812 [place], [place] [phone] Lesvia Stanley EP Cardiac Rehabilitation 03/17/22 03/17/23 [facility] Therapist [address] [place] [phone] Delia Avila, Pharmacist Pharmacist 06/07/22 [facility] [address] [place], [place] [phone] Mago Swift, [facility] Lead Final Expense Agent Vp Sales - 08/05/21 Clinical Leela Jarvis, [facility] Pharmacist 07/26/22 05/15/23 [address] [facility] [place] [phone] documented as of this encounter
--- OUTSIDE RECORDS SUMMARY | 2022-09-21 03:59 | XMS_ITS | Encounter Summary ---
:1980 Author Organization [facility] Address [address] [place] [address] Care Team Providers Name Role Phone Aydee Burton ANIMAL SHELTER WORKER STUDIO POTTER Primary Care Provider Aydee Burton APRN STUDIO POTTER Unavailable [phone] Louisa Hood ANIMAL SHELTER WORKER STUDIO POTTER Unavailable [phone] Angel Hannah MD Unavailable Lesly Celaya MD Unavailable Tawana Patel MA Unavailable Unavailable Ramses Mcpherson MD Unavailable [phone] Obdulio Barrera MD Unavailable [phone] Obdulio Barrera MD Unavailable [phone] Lesvia Stanley Unavailable Marilia Deluna PhD Unavailable Niyah Decker [facility] Unavailable Lesvia Stanley Unavailable Delia Avila [facility] Unavailable [phone] Mago Swift [facility] Unavailable Niyah Decker [facility] Unavailable Encounter Details Date Type Department Care Team Description 07/11/2022 Travel Social History Tobacco Use Types Packs/Day [...] er 08/05/2021 How often do you attend presybeterian or catholic services? Never 08/05/2021 Do you belong to any clubs or organizations such as presybeterian N o 08/05/2021 groups, unions, fraternal or [...] at Date Recorded Female 11/09/2021 7:53 PM RECORDING CLERK COVID-19 Exposure Response Date Recorded In the last 10 days, have you been in contact with No / Unsu re 07/11/2022 12:53 PM CDT someone who was confirmed or suspected to have Coronavirus/COVID-19? documented as of this encounter Plan of Treatment Upcoming Encounters Date Type Specialty Care Team Description 09/26/2022 Appointment Speech Obdulio Medina MD 420 [facility] [address] [place] [address] Anabel Chew, DRY YARD WORKER [place] 263156 [facility] [address] [place] [address] 09/27/2022 Therapy Visit Physical Therapy Luisana Watkins, PT [address] [place] [address] 09/29/2022 Virtual Visit Pain & Palliative Marilia Deluna, Care PhD [address] [place] [address] 09/30/2022 Office Visit Family Practice Aydee Burton, ANIMAL SHELTER WORKER [facility] [address] [place] [address] 10/03/2022 Therapy Visit Physical Therapy Una Reardon, PT [address] [place] [phone] 10/10/2022 Hospital Encounter Surgery Lesly Celaya MD [address] [place], [place] [address] 10/10/2022 Office Visit Surgery Lesly Celaya MD [address] [place] [address] Ninoska Flowers PA-C [address] [place] [address] 10/10/2022 Surgery Surgery Lesly Celaya, EXCISION, MASSES - MD back, abdomen, [address] right lower BL extremity [place], [place] [address] 10/11/2022 Virtual Visit Cara Ruiz, Clari Banks, [facility] [address] [place] [address] 10/14/2022 Appointment Speech Therapy Anabel Chew, DRY YARD WORKER [address] [address] 10/21/2022 Office Visit Pulmonology Obdulio Barrera MD [address] [address] 10/25/2022 PRE VISIT ENT Charo Burton MD Previsit [address] [place] [address] 10/25/2022 Office Visit ENT Charo Burton MD [address] [place], [place] [address] 10/25/2022 Office Visit ENT Provider, 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 Clinical Pharmacy Technician 10/28/2022 Appointment Speech Therapy Anabel Chew, DRY YARD WORKER [address] [address] 11/17/2022 Appointment Speech Therapy Anabel Chew DRY YARD WORKER [address] [address] 12/23/2022 Office Visit Neurology Colby Yeung MD [address] [address] Scheduled Procedures Name Priority Associated Diagnoses Date/Time EXCISION, MASS, TORSO Lipoma of skin and subcuta neous 10/10/2022 7:30 AM RECORDING CLERK tissue documented as of this encounter Goals Goal Patient Goal Associated Recent Patient-Stated? Author Type Problems Progress Attend Speciality Care Plan Establish Care 50% No Ahe rn, Appointments (08/29/2022 Mago Murray, (COST ENGINEER, 3:24 PM CDT) [facility] Psychiatry, Counseling, and the Sleep Clinic) Note: Formatting of this note is differe nt from the original. Barriers: Appointment availability. Strengths: Recognition of need, Care Platform Material Handling Supervisor rdination involvement. Patient expressed understanding of goal: [...] [facility] [place] To address painful lumps in my abdomin [...] documented as of this encounter Care Teams Profile Saw Operator Relationship Specialty Start Date End Date Aydee Burton, PCP - General Nurse Practitioner - 05/17/21 ANIMAL SHELTER WORKER STUDIO POTTER Family [address] [place], [place] [id number] Aydee Burton, Assigned PCP 04/28/21 ANIMAL SHELTER WORKER STUDIO POTTER [address] [place], [place] [phone] Louisa Hood, Assigned Neuroscience 07/11/21 ANIMAL SHELTER WORKER STUDIO POTTER Provider [address] [place], [place] [phone] [place], Assigned Sleep 08/01/21 Angel Turcios, Provider [address] [place], [place] [phone] Lesly Celaya MD Assigned Surgical 09/05/21 [address] [place] [address] Tawana Patel MA [facility] Health 09/30/21 Worker Ramses Mcpherson Assigned OBGYN 11/07/21 MD Onesimo Provider [address] [place] [address] Obdulio Barrera MD Critical Care 01/24/22 420 [facility] [address] [place], [place] [phone] Obdulio Barrera, Assigned Pulmonology 02/06/22 MD Provider 420 [facility] [address] [place], [place] [address] Lesvia Stanley, EP Cardiac Rehabilitation 03/03/22 03/03/23 [facility] Therapist [address] [place] [phone] Marilia Deluna, PhD Assigned Behavioral 02/20/22 [address] [facility] [place] [address] Niyah Decker, [facility] Pharmacist Pharmacist 03/07/[address] [place] [address] 8[address] [place], [place] [address] Lesvia Stanley, GHADA Cardiac Rehabilitation 03/17/22 03/17/23 [facility] Therapist [address] [place] [address] Delia Avila, Pharmacist Pharmacist 06/07/22 [facility] [address] [place] [address] Mago Swift, [facility] Lead Pumpman Environmental Web Crawler - 08/05/21 Clinical Niyah Decker, [facility] Assigned MTM 06/25/22 07/29/[address] [place] [address] 812 [place] [address] documented as of this encounter
--- OUTSIDE RECORDS SUMMARY | 2022-09-21 03:59 | XMS_ITS | Encounter Summary ---
:1980 Author Organization [facility] Address [address] [place] [address] Care Team Providers Name Role Phone Aydee Burton DECALER SOCIAL SERVICES SPECIALIST Primary Care Provider Aydee Burton APRN SOCIAL SERVICES SPECIALIST Unavailable [phone] Louisa Hood DECALER SOCIAL SERVICES SPECIALIST Unavailable [phone] Angel Hannah MD Unavailable Lesly Celaya MD Unavailable Tawana Patel MA Unavailable Unavailable Ramses Mcpherson MD Unavailable [phone] Obdulio Barrera MD Unavailable [phone] Obdulio Barrera MD Unavailable [phone] Lesvia Stanley Unavailable Marilia Deluna PhD Unavailable Niyah Decker [facility] Unavailable Lesvia Stanley Unavailable Delia Avila [facility] Unavailable [phone] Mago Swift [facility] Unavailable Niyah Decker [facility] Unavailable Encounter Details Date Type Department Care Team Description 07/14/2022 Virtual Visit [facility] Marilia Deluna, Chr onic pain syndrome (Primary Dx); Pain Management PhD Cervicogenic headache; [place] [address] [address] Cervical radiculopathy; [address] [place], [place] Neuropathic pain [address] [address] [place] [address] Social History Tobacco Use Types [...] er 08/05/2021 How often do you attend christian or shinto services? Never 08/05/2021 Do you belong to any clubs or organizations such as christian N o 08/05/2021 groups, unions, fraternal or [...] at Date Recorded Female 11/09/2021 7:53 PM PHYSICAL GEOGRAPHER COVID-19 Exposure Response Date Recorded In the last 10 days, have you been in contact with No / Unsu re 07/13/2022 3:24 PM CDT someone who was confirmed or suspected to have Coronavirus/COVID-19? documented as of this encounter Progress Notes Marilia Deluna, PhD - 07/14/2022 2:00 PM CDT Marta Hill is a 42 year old female who is being evaluated via a billable video visit. The patient has been notified of following: This video visit will be conducted via a call between you and your physician/provider. We have found that certain health care needs can be provided without the need for an in-person physical exam. This service lets us provide the care you need with a video conversation. Video visits are billed at different rates depending on your insurance coverage. Please reach out toyour insurance provider with any questions. If during the course of the call the physician/provider feels a video visit is not appropriate, you will not be charged for this service. Patient has given verbal consent for Video visit? Yes Patient is currently in the [facility]? yes Patient would like the video invitation sent by: Text to cell phone: [phone]} Video Start Time: 1:58 PM Additional provider notes: Pain Diagnoses per pain provider: Chronic pain syndrome Cervicogenic headache Cervical radiculopathy Neuropathic pain DATA: During today's visit you reported the following: Your pain is worsening a bit. Your mood is variable, more sadness and anxiety lately - ex is fighting over parenting/custoy and child support. Your activity level is about the same - too much activity can cause you to have breathing issues, working with organ installer on this. Your stress level is worse - ex suing for custody and to stop child support. Your sleep is mildly improved, adjusting to new work schedule. You reported engaging inself-care for your pain 1-2 times daily - stretching, resting. You identified that you would like to focus on the following or had questions regarding the following issues or concerns, and we discussed the following: - saw Madalyn Ponce MD for the first time - transition to lyrica - not as sedating as gabapentin - referred to speech therapy again from organ installer - co-worker with significant anxiety - otherwise work is ok - discussed [place] as a resource for ex suing for custody and child support - frustrated about ex's current and past behaviors, being told by looseleaf binder coverer you had to 'drop' MARCELO and PRASAD to meet divorce decree - son reconnected with you - last connection in 2017, off to basic training - [employer] ASSESSMENT: Stress continues to be high, which is likely contributing to her pain. Seems to be doinga better job of incorporating more regular self-care. PLAN: Your next appointment is scheduled for 08/05 at 2:30 PM. Assignment/Objectives /interventions for next session: - contact [facility] for their law clinic - download [employer] mulu We believe regular attendance is miranda to your success in our program! ?? Any time you are unable to keep your appointment we ask that you call us at [phone] at least24 hours in advance to cancel.This will allow us to offer the appointment time to another patient. ?? Multiple missed appointments may lead to dismissal from the clinic. Video-Visit Details Type of service: Video Visit Video End Time (time video stopped): 2:41 PM Originating Location (pt. Location): Home Distant Location (provider location): [facility] Mode of Communication: Video Conference [facility] Marilia Deluna PsyD LP Licensed Psychologist Outpatient Clinic Therapist [facility] Pain Management documented in this encounter Plan of Treatment Upcoming Encounters Date Type Specialty Care Team Description 09/26/2022 Appointment Speech Therapy Obdulio Barrera MD 420 [facility] [address] [place], [place] [address] Anabel Chew, NUCLEAR RADIOLOGIST [facility] 516 [facility] [address] [place], [place] [address] 09/27/2022 Therapy Visit Physical Therapy Luisana Watkins, PT [address] [place] [address] 09/29/2022 Virtual Visit Pain & Palliative Marilia Deluna, Care PhD [address] [facility] [place] [address] 09/30/2022 Office Visit Family Practice Aydee Burton, DECALER SOCIAL SERVICES SPECIALIST [address] [place], [place] [phone] 10/03/2022 Therapy Visit Physical Therapy David-Una Tang, PT [address] [place] [address] 10/10/2022 Hospital Encounter Surgery Lesly Celaya MD [address] [place] [address] 10/10/2022 Office Visit Surgery Lesly Celaya MD [address] [place] [address] Ninoska Flowers PA-Ynes [address] [place] [address] 10/10/2022 Surgery Surgery Lesly Celaya, EXCISION, MASSES - MD back, abdomen, [address] [place] [address] 10/11/2022 Virtual Visit Clari Su, [facility] [address] [address] 10/14/2022 Appointment Speech Therapy Anabel Chew, NUCLEAR RADIOLOGIST [facility] 516 [facility] [address] [place], [place] [address] 10/21/2022 Office Visit Pulmonology Obdulio Barrera MD 420 [facility] [address] [place] [address] 10/25/2022 PRE VISIT ENT Charo Burton MD Previsit [address] [place], [place] [address] 10/25/2022 Office Visit ENT Charo Burton MD [address] [place] [address] 10/25/2022 Office Visit ENT Provider, 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 Art Specialist 10/28/2022 Appointment Speech Therapy Anabel Chew, NUCLEAR RADIOLOGIST [address] [address] 11/17/2022 Appointment Speech Therapy Anabel Chew, NUCLEAR RADIOLOGIST [address] [address] 12/23/2022 Office Visit Neurology Colby Yeung MD [address] [place] [address] Scheduled Procedures Name Priority Associated Diagnoses Date/Time EXCISION, MASS, TORSO Lipoma of skin and subcuta neous 10/10/2022 7:30 AM PHYSICAL GEOGRAPHER tissue documented as of this encounter Goals Goal Patient Goal Associated Recent Patient-Stated? Author Type Problems Progress Attend Speciality Care Plan Establish Care 50% No Randal rn, Appointments (08/29/2022 Mago Murray, (COAL FEEDER OPERATOR, 3:24 PM CDT) [facility] Psychiatry, Counseling, and the Sleep Clinic) Note: Formatting of this note is differe nt from the original. Barriers: Appointment availability. Strengths: Recognition of need, Care Domestic Maid rdination involvement. Patient expressed understanding of goal: [...] on: 08/16/2022 9:45 AM Lesly Celaya MD [facility] Surgery Clinic [place] To address painful lumps in my abdomin [...] Name Priority Date/Time Associated Diagnosis Comme nts [facility] Routine 07/14/2022 2:42 PM CDT Chroni c pain syndrome INTERVENTION, Cervicogenic hea dache INDIVIDUAL, INITIAL 30 Cervical radiculopathy MINS Neuropathic pain documented in this encounter Visit Diagnoses Diagnosis Chronic pain syndrome - Primary Cervicogenic headache Headache Cervical radiculopathy Brachial neuritis or radiculitis nos Neuropathic pain Neuralgia, neuritis, and radiculitis, un specified Lipoma of skin and subcutaneous tissue Lipoma of other skin and subcutaneous ti ssue documented in this encounter Additional Health Concerns Problem Noted Date Establish Care 07/05/2022 Chronic Pain is not self-managed 07/05/2022 Assessment Noted Time PHQ-9 Depression Total Score: 16 06/24/2022 9:31 AM CD T documented as of this encounter Care Teams Service Person Relationship Specialty Start Date End Date Aydee Burton, PCP - General Nurse Practitioner - 05/17/21 DECALER SOCIAL SERVICES SPECIALIST Family [address] [place] [id number] Aydee Burton, Assigned PCP 04/28/21 DECALER SOCIAL SERVICES SPECIALIST [address] [place] [address] Louisa Hood, Assigned Neuroscience 07/11/21 DECALER SOCIAL SERVICES SPECIALIST Provider [address] [place], [place] [phone] [place], Assigned Sleep 08/01/21 Angel Turcios, Provider [address] [place], [place] [phone] Lesly Celaya MD Assigned Surgical 09/05/21 [address] Provider [place], [place] [phone] Tawana Patel MA [facility] 09/30/21 Worker Ramses Mcpherson Assigned OBGYN 11/07/21 MD Onesimo Provider [address] [place] [address] Obdulio Barrera MD Critical Care 01/24/[address] [place] [address] 276 [place], [place] [address] Obdulio Barrera, Assigned Pulmonology 02/06/22 MD Provider 420 [facility] 276 [place], [place] [address] Lesvia Stanley, GHADA Cardiac Rehabilitation 03/03/22 03/03/23 [facility] Therapist [address] [place] [address] Marilia Deluna, PhD Assigned Behavioral 02/20/22 [address] [facility] [place] [address] Niyah Decker, [facility] Pharmacist Pharmacist 03/07/[address] [place] [address] 8[address] [place] [address] Lesvia Stanley, GHADA Cardiac Rehabilitation 03/17/22 03/17/23 [facility] Therapist [address] [place] [address] Delia Avila, Pharmacist Pharmacist 06/07/22 [facility] [address] [place] [address] Mago Swift, [facility] Lead Ash Worker Supervisor Telephone Answering Service - 08/05/21 Clinical Niyah Decker, [facility] Assigned MTM 06/25/22 07/29/[address] [place] [address] 812 Pharmacist [place], [place] [phone] documented as of this encounter
--- OUTSIDE RECORDS SUMMARY | 2022-09-21 03:59 | XMS_ITS | Encounter Summary ---
:1980 Author Organization [facility] Address [address] [place] [address] Care Team Providers Name Role Phone Aydee Burton PETROLEUM REFINING EQUIPMENT OPERATOR GRADUATE TEACHING ASSISTANT Primary Care Provider [phone] Aydee Burton APRN GRADUATE TEACHING ASSISTANT Unavailable [phone] Louisa Hood PETROLEUM REFINING EQUIPMENT OPERATOR GRADUATE TEACHING ASSISTANT Unavailable [phone] Angel Hannah MD Unavailable Lesly Celaya MD Unavailable Tawana Patel MA Unavailable Unavailable Ramses Mcpherson MD Unavailable [phone] Obdulio Barrera MD Unavailable [phone] Obdulio Barrera MD Unavailable Lesvia Stanley Unavailable Marilia Deluna PhD Unavailable Niyah Decker [facility] Unavailable Lesvia Stanley Unavailable Delia Avila [facility] Unavailable [phone] Mago Swift [facility] Unavailable SimonaLeela [facility] Unavailable Reason for Visit Rehab Therapy Physical Therapy (Routine: Next available opening) - Pending Review Specialty Diagnoses / Procedures Referred By Contact Refer red To Contact Diagnoses Tension headache Cervicogenic headache Cervicalgia Colby Yeung MD [address] [place] [address] Referral ID Status Reason Start Date Expiration Date Visits V isits Requested Authorized [id number] Pending 06/30/2022 06/30/2023 1 1 Review Encounter Details Date Type Department Care Team Description 08/04/2022 [facility] Una Murray, PT Dx) [place] [facility] [address] [place] [phone] [address] [place] [address] (Work) [phone] Social History Tobacco Use Types Packs/Day Years [...] er 08/05/2021 How often do you attend congregation or buddhism services? Never 08/05/2021 Do you belong to any clubs or organizations such as congregation N o 08/05/2021 groups, unions, fraternal or [...] at Date Recorded Female 11/09/2021 7:53 PM TAKE AWAY WORKER COVID-19 Exposure Response Date Recorded In the last 10 days, have you been in contact with No / Unsu re 08/04/2022 2:27 PM CDT someone who was confirmed or suspected to have Coronavirus/COVID-19? documented as of this encounter Plan of Treatment Upcoming Encounters Date Type Specialty Care Team Description 09/26/2022 Appointment Speech Therapy Obdulio Barrera MD 420 [facility] 276 [place], [place] [address] Anabel Chew, ELECTRICAL & INSTRUMENTATION SUPERVISOR [place] [id number] [facility] [address] [place], [place] [address] 09/27/2022 Therapy Visit Physical Therapy Luisana Watkins, PT [address] [place] [address] 09/29/2022 Virtual Visit Pain & Palliative Marilia Deluna, [facility] PhD [address] [place], [place] [address] 09/30/2022 Office Visit Family Practice Aydee Burton, PETROLEUM REFINING EQUIPMENT OPERATOR GRADUATE TEACHING ASSISTANT [address] [place], [place] [address] 10/03/2022 Therapy Visit Physical Therapy Una Reardon, PT 2155 [place] [phone] 10/10/2022 Hospital Encounter Surgery Lesly Celaya MD [address] [place], [place] [address] 10/10/2022 Office Visit Surgery Lesly Celaya MD [address] [place], [place] [address] Ninoska Flowers PA-C [address] [place] [address] 10/10/2022 Surgery Surgery Lesly Celaya, EXCISION, MASSES - MD back, abdomen, [address] [place] [address] 10/11/2022 Virtual Visit Pharm Clari Stoll, [address] [address]25[address] 10/14/2022 Appointment Speech Therapy Anabel Chew, ELECTRICAL & INSTRUMENTATION SUPERVISOR [address] [address] 10/21/2022 Office Visit Pulmonology Obdulio Barrera MD [address] [place] [address] 276 [place], [place] [address] 10/25/2022 PRE VISIT Charo Carter MD Previsit [address] [place] [phone] 10/25/2022 Office Visit Charo Carter MD [address] [place] [address] 10/25/2022 Office Visit ENT Provider, 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 Adjustment Supervisor 10/28/2022 Appointment Speech Therapy Anabel Chew, ELECTRICAL & INSTRUMENTATION SUPERVISOR [address] [address] 11/17/2022 Appointment Speech Therapy Anabel Chew, ELECTRICAL & INSTRUMENTATION SUPERVISOR [address] [place] [address] 12/23/2022 Office Visit Neurology Colby Yeung MD [address] [place] [address] Scheduled Procedures Name Priority Associated Diagnoses Date/Time EXCISION, MASS, TORSO Lipoma of skin and subcuta neous 10/10/2022 7:30 AM TAKE AWAY WORKER tissue documented as of this encounter Goals Goal Patient Goal Associated Recent Patient-Stated? Author Type Problems Progress Attend Speciality Care Plan Establish Care 50% No Randal rn, Appointments (08/29/2022 Mago Murray, (AUTOMATIC NAILING MACHINE OPERATOR, 3:24 PM CDT) [facility] Psychiatry, Counseling, and the Sleep Clinic) Note: Formatting of this note is differe nt from the original. Barriers: Appointment availability. Strengths: Recognition of need, Care Internal Medicine Nurse Practitioner rdination involvement. Patient expressed understanding of goal: [...] Lesly Celaya MD [facility] [place] To address painful lumps in my abdomin [...] well-managed. self-managed 3:14 PM CDT) MARISA Murray Note: Formatting of this note might be [...] Name Priority Date/Time Associated Diagnosis Comme nts AK MANUAL THERAPY, EA 15 Routine 08/04/2022 3:12 PM CDT Neck p ain MIN [place] THERAPEUTIC Routine 08/04/2022 3:12 PM CDT Neck pain EXERCISES. EA 15 [...] documented as of this encounter Care Teams Fuel Island Attendant Relationship Specialty Start Date End Date Aydee Burton, PCP - General Nurse Practitioner - 05/17/21 PETROLEUM REFINING EQUIPMENT OPERATOR [facility] [address] [place] [id number] Aydee Burton, Assigned PCP 04/28/21 PETROLEUM REFINING EQUIPMENT OPERATOR [facility] [address] [place], [place] [address] Louisa Hood, Assigned Neuroscience 07/11/21 PETROLEUM REFINING EQUIPMENT OPERATOR GRADUATE TEACHING ASSISTANT Provider 500 [place] [address] [place], Assigned Sleep 08/01/21 Angel Turcios, Provider [address] [place] [address] Lesly Celaya MD Assigned Surgical 09/05/21 [address] [place] [address] Tawana Patel [facility] 09/30/21 Worker Ramses Mcpherson Assigned OBGYN 11/07/21 MD Onesimo Provider [address] [place] [address] Obdulio Barrera MD Critical Care 01/24/22 420 [facility] 276 [place] [address] Obdulio Barrera, Assigned Pulmonology 02/06/22 Provider 420 [facility] [address] [place], [place] [address] Lesvia Stanley, [facility]ADA Cardiac Rehabilitation 03/03/22 03/03/23 [facility] Therapist [address] [place] [id number] Marilia Deluna, PhD Assigned Behavioral 02/20/[address] [facility] Provider [place], [place] [address] Niyah Decker, [facility] Pharmacist Pharmacist 03/07/22 420 [facility] [address] [place], [place] [address] Lesvia Stanley, [facility] Cardiac Rehabilitation 03/17/22 03/17/23 [facility] Therapist [address] [address] Delia Avila, Pharmacist Pharmacist 06/07/22 [facility] [address] [place], [place] [address] Mago Swift [facility] Lead Sand Caster Apprentice Roundhouse Supervisor - 08/05/21 Clinical Leela Jarvis, [facility] Pharmacist 07/26/22 05/15/23 3305 [facility] [place] [id number] documented as of this encounter
--- OUTSIDE RECORDS SUMMARY | 2022-09-21 03:59 | XMS_ITS | Encounter Summary ---
:1980 Author Organization [facility] Address [address] [place] [address] Care Team Providers Name Role Phone Aydee Burton REVIEW MANAGER WEBBING WEAVER Primary Care Provider Aydee Burton APRN WEBBING WEAVER Unavailable [phone] Louisa Hood REVIEW MANAGER WEBBING WEAVER Unavailable [phone] Angel Hannah MD Unavailable Lesly Celaya MD Unavailable Tawana Patel MA Unavailable Unavailable Ramses Mcpherson MD Unavailable [phone] Obdulio Barrera MD Unavailable [phone] Obdulio Barrera MD Unavailable [phone] Lesvia Stanley Unavailable Marilia Deluna PhD Unavailable Niyah Decker [facility] Unavailable Lesvia Stanley Unavailable Delia Avila [facility] Unavailable [phone] Mago Swift [facility] Unavailable EvertonLeela davis [facility] Unavailable Encounter Details Date Type Department Care Team Description 08/01/2022 Travel Social History Tobacco Use Types Packs/Day [...] How often do you attend catholic or hinduism services? Never 08/05/2021 Do you belong to [...] at Date Recorded Female 11/09/2021 7:53 PM ROUTE DRIVER COVID-19 Exposure Response Date Recorded In the last 10 days, have you been in contact with No / Unsu re 08/01/2022 1:04 PM CDT someone who was confirmed or suspected to have Coronavirus/COVID-19? documented as of this encounter Plan of Treatment Upcoming Encounters Date Type Specialty Care Team Description 09/26/2022 Appointment Speech Therapy Obdulio Barrera MD 420 [facility] 276 [place] [address] Anabel Chew, DAYCARE PROVIDER [address] [place] [address] 09/27/2022 Therapy Visit Physical Therapy Luisana Watkins, PT [address] [place] [address] 09/29/2022 Virtual Visit Pain & Palliative Marilia Deluna, Care PhD [address] [place] [address] 09/30/2022 Office Visit Family Practice Aydee Burton, REVIEW MANAGER WEBBING WEAVER [address] [place] [address] 10/03/2022 Therapy Visit Physical Therapy Una Reardon, PT [address] [place] [phone] 10/10/2022 Hospital Encounter Surgery Lesly Celaya MD [address] [place], [place] [address] 10/10/2022 Office Visit Surgery Lesly Celaya MD [address] [place], [place] [phone] Ninoska Flowers PA-C [address] [place] [address] 10/10/2022 Surgery Surgery Lesly Celaya, EXCISION, MASSES - MD back, abdomen, [address] extremity [place], [place] [address] 10/11/2022 Virtual Visit Clari Su, [address] [place] [address] 10/14/2022 Appointment Speech Therapy Anabel Chew, DAYCARE PROVIDER [address] [address] 10/21/2022 Office Visit Pulmonology Obdulio Barrera MD [address] [address]37[address] 10/25/2022 PRE VISIT ENT Charo Burton MD Previsit [address] [place] [address] 10/25/2022 Office Visit ENT Charo Burton MD [address] [place], [place] [address] 10/25/2022 Office Visit ENT Provider, 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 Electrical Technology Instructor 10/28/2022 Appointment Speech Therapy Anabel Chew, DAYCARE PROVIDER [address] 6[address] 11/17/2022 Appointment Speech Therapy Anabel Chew, DAYCARE PROVIDER [address] [address] 12/23/2022 Office Visit Neurology Colby Yeung MD [address] [id number] Scheduled Procedures Name Priority Associated Diagnoses Date/Time EXCISION, MASS, TORSO Lipoma of skin and subcuta neous 10/10/2022 7:30 AM ROUTE DRIVER tissue documented as of this encounter Goals Goal Patient Goal Associated Recent Patient-Stated? Author Type Problems Progress Attend Speciality Care Plan Establish Care 50% No Ahe rn, Appointments (08/29/2022 Mago Murray, (AUTOMOBILE ACCESSORIES SALESPERSON, 3:24 PM CDT) [facility] Psychiatry, Counseling, and the Sleep Clinic) Note: Formatting of this note is differe nt from the original. Barriers: Appointment availability. Strengths: Recognition of need, Care Cisco Network Architect rdination involvement. Patient expressed understanding of goal: [...] MD [facility] [place] To address painful lumps in my abdomin [...] as of this encounter Care Teams General Laborer Relationship Specialty Start Date End Date Aydee Burton, PCP - General Nurse Practitioner - 05/17/21 REVIEW MANAGER WEBBING WEAVER Family [address] [place], [place] [phone] Aydee Burton, Assigned PCP 04/28/21 REVIEW MANAGER WEBBING WEAVER [address] [place], [place] [phone] Louisa Hood, Assigned Neuroscience 07/11/21 REVIEW MANAGER WEBBING WEAVER Provider [address] [place], [place] [phone] [place], Assigned Sleep 08/01/21 Angel Turcios, Provider [address] [place], [place] [phone] Lesly Celaya MD Assigned Surgical 09/05/21 [address] [place] [address] Tawana Patel MA [facility] Health 09/30/21 Worker Ramses Mcpherson Assigned OBGYN 11/07/21 MD Onesimo Provider [address] [place] [address] Obdulio Barrera MD Critical Care 01/24/22 420 [facility] [address] [place] [address] Obdulio Barrera, Assigned Pulmonology 02/06/22 MD Provider 420 [facility] [address] [place], [place] [address] Lesvia Stanley, GHADA Cardiac Rehabilitation 03/03/22 03/03/23 [facility] Therapist [address] [id number] Marilia Deluna, PhD Assigned Behavioral 02/20/22 [address] [facility] [place] [address] Niyah Decker, [facility] Pharmacist Pharmacist 03/07/22 420 [facility] 812 [place] [address] Lesvia Stanley, GHADA Cardiac Rehabilitation 03/17/22 03/17/23 [facility] Therapist [address] [id number] Delia Avila, Pharmacist Pharmacist 06/07/[address] [facility] [address] [place] [id number] Mago Swift, [facility] Lead Engine Lathe Operator Dramatic Agent - 08/05/21 Clinical Leela Jarvis, [facility] Pharmacist 07/26/22 05/15/23 3305 [facility] [place] [address] documented as of this encounter
--- OUTSIDE RECORDS SUMMARY | 2022-09-21 03:59 | XMS_ITS | Encounter Summary ---
:1980 Author Organization [facility] Address [address] [place] [address] Care Team Providers Name Role Phone Aydee Burton YARN POLISHING MACHINE OPERATOR GRAIN PICKER Primary Care Provider Aydee Burton APRN GRAIN PICKER Unavailable [phone] Louisa Hood YARN POLISHING MACHINE OPERATOR GRAIN PICKER Unavailable [phone] Angel Hannah MD Unavailable Lesly Celaya MD Unavailable Tawana Patel MA Unavailable Unavailable Ramses Mcpherson MD Unavailable [phone] Obdulio Barrera MD Unavailable [phone] Obdulio Barrera MD Unavailable [phone] Lesvia Stanley Unavailable Marilia Deluna PhD Unavailable Niyah Decker [facility] Unavailable Lesvia Stanley Unavailable Dleia Avila [facility] Unavailable [phone] JamisonMago [facility] Unavailable Niyah Decker Vania [facility] Unavailable SimonaLeela [facility] Unavailable Reason for Visit Rehab Therapy Physical Therapy (Routine: Next available opening) - Pending Review Specialty Diagnoses / Procedures Referred By Contact Refer red To Contact Diagnoses Tension headache Cervicogenic headache Cervicalgia Colby Yeung MD [address] [place] [address] Referral ID Status Reason Start Date Expiration Date Visits V isits Requested Authorized [id number] Pending 06/30/2022 06/30/2023 1 1 Review Encounter Details Date Type Department Care Team Description 07/28/2022 [facility] Una Murray, PT Dx) [place] [facility] [address] [address] [address] [place] [address] (Work) [phone] Social History Tobacco Use Types Packs/Day Years [...] er 08/05/2021 How often do you attend mormon or yazidi services? Never 08/05/2021 Do you belong to any clubs or organizations such as mormon N o 08/05/2021 groups, unions, fraternal or [...] place to sleep or slept in a usp (including now)? Sex Assigned at Date Recorded Female 11/09/2021 7:53 PM FLAME CUTTER COVID-19 Exposure Response Date Recorded In the last 10 days, have you been in contact with No / Unsu re 07/28/2022 2:27 PM CDT someone who was confirmed or suspected to have Coronavirus/COVID-19? documented as of this encounter Plan of Treatment Upcoming Encounters Date Type Specialty Care Team Description 09/26/2022 Appointment Speech Therapy Obdulio Barrera MD 420 [facility] 276 [place], [place] [address] Anabel Chew, EDI CONSULTANT [address] [place], [place] [address] 09/27/2022 Therapy Visit Physical Therapy Luisana Watkins, PT [address] [place] [address] 09/29/2022 Virtual Visit Pain & Palliative Marilia Deluna, Care PhD [address] [place] [address] 09/30/2022 Office Visit Family Practice Aydee Burton, YARN POLISHING MACHINE OPERATOR GRAIN PICKER [address] [place] [phone] 10/03/2022 Therapy Visit Physical Therapy Una Reardon, PT 2[address] [place] [phone] 10/10/2022 Hospital Encounter Surgery Lesly Celaya MD [address] [place], [place] [address] 10/10/2022 Office Visit Surgery Lesly Celaya MD [address] [place], [place] [address] Ninoska Flowers PA-C [address] [place], [place] [address] 10/10/2022 Surgery Surgery Lesly Celaya, EXCISION, MASSES - MD back, abdomen, [address] extremity [place], [place] [address] 10/11/2022 Virtual Visit Pharm Bryce Ruiz, Clari Banks, [address] [address] 10/14/2022 Appointment Speech Therapy Anabel Chew, EDI CONSULTANT [facility] 516 [facility] 396 [place], [place] [address] 10/21/2022 Office Visit Pulmonology Obdulio Barrera MD 420 [facility] 276 [place], [place] [address] 10/25/2022 PRE VISIT ENT Charo Burton MD Previsit [address] [place] [phone] 10/25/2022 Office Visit Charo Carter MD [address] [place] [address]005 10/25/2022 Office Visit ENT Provider, 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 Morgue Librarian 10/28/2022 Appointment Speech Therapy Anabel Chew SLP [address] [place] [address] 11/17/2022 Appointment Speech Therapy Anabel Chew SLP [address] [address] 12/23/2022 Office Visit Neurology Colby Yeung MD [address] [place] [address] Scheduled Procedures Name Priority Associated Diagnoses Date/Time EXCISION, MASS, TORSO Lipoma of skin and subcuta neous 10/10/2022 7:30 AM FLAME CUTTER tissue documented as of this encounter Goals Goal Patient Goal Associated Recent Patient-Stated? Author Type Problems Progress Attend Speciality Care Plan Establish Care 50% No Randal rn, Appointments (08/29/2022 Mago Murray, (DIRECTOR OF RELIGIOUS LIFE, 3:24 PM CDT) [facility] Psychiatry, Counseling, and the Sleep Clinic) Note: Formatting of this note is differe nt from the original. Barriers: Appointment availability. Strengths: Recognition of need, Care Casting Agent rdination involvement. Patient expressed understanding of goal: [...] 08/16/2022 9:45 AM Lesly Celaya [address] [facility] Surgery [facility] To address painful lumps in my [...] Name Priority Date/Time Associated Diagnosis Comme nts [place] MANUAL THERAPY, EA 15 Routine 07/29/2022 8:03 AM CDT Neck p ain MIN [place] THERAPEUTIC Routine 07/29/2022 8:03 AM CDT Neck pain EXERCISES. EA 15 [...] documented as of this encounter Care Teams Cloth Presser Relationship Specialty Start Date End Date Aydee Burton, PCP - General Nurse Practitioner - 05/17/21 YARN POLISHING MACHINE OPERATOR GRAIN PICKER [facility] 4394 [place] [address] Aydee Burton, Assigned PCP 04/28/21 YARN POLISHING MACHINE OPERATOR [facility] 4256 [place], [place] [address] Louisa Hood, Assigned Neuroscience 07/11/21 YARN POLISHING MACHINE OPERATOR GRAIN PICKER Provider [address] [place], [place] [address] [place], Assigned Sleep 08/01/21 Angel Turcios, Provider [address] [place], [place] [address] Lesly Celaya MD Assigned Surgical 09/05/21 [address] [facility] Provider [place], [place] [address] Tawana Patel [facility] 09/30/21 Worker Ramses Mcpherson Assigned OBGYN 11/07/21 MD Onesimo Provider [address] [place], [place] [address] Obdulio Barrera MD Critical Care 01/24/[address] [place] [address] 276 [place] [address] Obdulio Barrera, Assigned Pulmonology 02/06/[address] [place] [address] 276 [place], [place] [address] Lesvia Stanley EP Cardiac Rehabilitation 03/03/22 03/03/23 [facility] Therapist [address] [place] [place] [place] [address] Marilia Deluna, PhD Assigned Behavioral 02/20/22 [address] [facility] Provider [place], [place] [address] Niyah Decker, [facility] Pharmacist Pharmacist 03/07/[address] [place] [address] 812 [place], [place] [address] Lesvia Stanley, GHADA Cardiac Rehabilitation 03/17/22 03/17/23 [facility] Therapist [address] [id number] Delia Avila, Pharmacist Pharmacist 06/07/22 [facility] 909 [place], [place] [address] Mago Swift, [facility] Lead Transition Assistant Electric Motor Tester Assembler - 08/05/21 Clinical Niyah Decker, [facility] Assigned MTM 06/25/22 07/29/22 420 [facility] 812 Pharmacist [place], [place] [address] Leela Jarvis [facility] Pharmacist 07/26/22 05/15/[address] [place] [address] [place] [id number] documented as of this encounter
--- OUTSIDE RECORDS SUMMARY | 2022-09-21 03:59 | XMS_ITS | Encounter Summary ---
:1980 Author Organization [place] Address [address] [place] [address] Care Team Providers Name Role Phone Aydee Burton KILN BURNER COREMAKER SUPERVISOR Primary Care Provider Aydee Burton APRN COREMAKER SUPERVISOR Unavailable [phone] Louisa Hood KILN BURNER COREMAKER SUPERVISOR Unavailable [phone] Angel Hannah MD Unavailable Lesly Celaya MD Unavailable Tawana Patel MA Unavailable Unavailable Ramses Mcpherson MD Unavailable [phone] Obdulio Barrera MD Unavailable Obdulio Barrera MD Unavailable [phone] Lesvia Stanley Unavailable Marilia Deluna PhD Unavailable Niyah Decker [facility] Unavailable Lesvia Stanley Unavailable Delia Avila [facility] Unavailable [phone] JamisonMago [facility] Unavailable Niyah Decker [facility] Unavailable SimonaLeela [facility] Unavailable Encounter Details Date Type Department Care Team Description 07/28/2022 Travel Social History Tobacco Use Types Packs/Day [...] er 08/05/2021 How often do you attend mormonism or muslim services? Never 08/05/2021 Do you belong to any clubs or organizations such as mormonism N o 08/05/2021 groups, unions, fraternal or [...] at Date Recorded Female 11/09/2021 7:53 PM MILITARY LOGISTICS SPECIALIST COVID-19 Exposure Response Date Recorded In [...] [facility] [address] [place], [place] [address] Anabel Chew, BIOFUELS RESEARCH SCIENTIST [facility] 516 [facility] [address] [place] [address] 09/27/2022 Therapy Visit Physical Therapy Luisana Watkins, PT [address] [place] [address] 09/29/2022 Virtual Visit Pain & Palliative Marilia Deluna, [facility] PhD [address] [place] [address] 09/30/2022 Office Visit Family Practice Aydee Burton, KILN BURNER COREMAKER SUPERVISOR [address] [place] [address] [id number] 10/03/2022 Therapy Visit Physical Therapy Una Reardon, PT [address] [place] [phone] 10/10/2022 Hospital Encounter Surgery Lesly Celaya MD [address] [place], [place] [address] 10/10/2022 Office Visit Surgery Lesly Celaya MD [address] [place], [place] [address] Ninoska Flowers PA-Ynes [address] [facility] [address] [place] [address] 10/10/2022 Surgery Surgery Lesly Celaya, EXCISION, MASSES - back, abdomen, [address] right lower [facility] extremity [place], [place] [phone] 10/11/2022 Virtual Visit Clari Su, [facility] [address] [place] [address] 10/14/2022 Appointment Speech Therapy Anabel Chew, BIOFUELS RESEARCH SCIENTIST [address] [address] 10/21/2022 Office Visit Pulmonology Obdulio Barrera MD 420 [facility] [address] [place], [place] [address] 10/25/2022 PRE VISIT ENT Charo Burton MD Previsit [address] [place] [address] 10/25/2022 Office Visit ENT Charo Burton MD [address] [place], [place] [address] 10/25/2022 Office Visit ENT Provider, 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 Insulation Machine Operator 10/28/2022 Appointment Speech Therapy Anabel Chew, BIOFUELS RESEARCH SCIENTIST [address] [id number] 11/17/2022 Appointment Speech Therapy Anabel Chew SLP [address] 8[address]255 12/23/2022 Office Visit Neurology Colby Yeung MD [address] [address] Scheduled Procedures Name Priority Associated Diagnoses Date/Time EXCISION, MASS, TORSO Lipoma of skin and subcuta neous 10/10/2022 7:30 AM MILITARY LOGISTICS SPECIALIST tissue documented as of this encounter Goals Goal Patient Goal Associated Recent Patient-Stated? Author Type Problems Progress Attend Speciality Care Plan Establish Care 50% Claudia Tee rn, Appointments (08/29/2022 Mago Murray, (PACKAGING LINE OPERATOR, 3:24 PM CDT) [facility] Psychiatry, Counseling, and the Sleep Clinic) Note: Formatting of this note is differe nt from the original. Barriers: Appointment availability. Strengths: Recognition of need, Care Track Repair Laborer rdination involvement. Patient expressed understanding of goal: [...] on: 08/16/2022 9:45 AM Lesly Celaya MD [facility] [place] To address painful lumps in my abdomin [...] documented as of this encounter Care Teams Sign Designer Relationship Specialty Start Date End Date Aydee Burton, PCP - General Nurse Practitioner - 05/17/21 KILN BURNER COREMAKER SUPERVISOR Family [address] [place], [place] [phone] Aydee Burton, Assigned PCP 04/28/21 KILN BURNER COREMAKER SUPERVISOR [address] [place] [address] Louisa Hood, Assigned Neuroscience 07/11/21 KILN BURNER COREMAKER SUPERVISOR Provider [address] [place], [place] [phone] [place], Assigned Sleep 08/01/21 Angel Turcios, Provider [address] [place], [place] [phone] Lesly Celaya MD Assigned Surgical 09/05/21 [address] Provider [place], [place] [phone] Tawana Patel MA [facility] 09/30/21 Worker Ramses Mcpherson Assigned OBGYN 11/07/21 MD Onesimo Provider [address] [place], [place] [phone] Obdulio Barrera MD Critical Care 01/24/22 420 [facility] [address] [place], [place] [phone] Obdulio Barrera, Assigned Pulmonology 02/06/22 MD Provider 420 [facility] [address] [place], [place] [address] Lesvia Stanley, GHADA Cardiac Rehabilitation 03/03/22 03/03/23 [facility] Therapist [address] [place] [place] [address] Marilia Deluna, PhD Assigned Behavioral 02/20/22 [address] [facility] [place] [place] [address] Niyah Decker, [facility] Pharmacist Pharmacist 03/07/22 420 [facility] [address] [place] [address] Lesvia Stanley, GHADA Cardiac Rehabilitation 03/17/22 03/17/23 [facility] Therapist [address] [place] [address] Delia Avila, Pharmacist Pharmacist 06/07/22 [facility] [address] [place], [place] [address] Mago Swift, [facility] Lead Joint Filler Tool Room Supervisor - 08/05/21 Clinical Niyah Decker, [facility] Assigned MTM 06/25/22 07/29/22 420 [facility] 812 Pharmacist [place], [place] [address] Leela Jarvis [facility] Pharmacist 07/26/22 05/15/23 [address] [facility] [place] [address] documented as of this encounter
--- OUTSIDE RECORDS SUMMARY | 2022-09-21 03:59 | XMS_ITS | Encounter Summary ---
:1980 Author Organization [place] Address [address] [place] [address] Care Team Providers Name Role Phone Aydee Burton ASSOCIATE CIVIL ENGINEER SHELLFISH CHECKER Primary Care Provider [phone] Aydee Burton APRN SHELLFISH CHECKER Unavailable [phone] Louisa Hood ASSOCIATE CIVIL ENGINEER SHELLFISH CHECKER Unavailable [phone] Angel Hannah MD Unavailable Lesly Celaya MD Unavailable Tawana Patel MA Unavailable Unavailable Ramses Mcpherson MD Unavailable [phone] Obdulio Barrera MD Unavailable [phone] Obdulio Barrera MD Unavailable [phone] Lesvia Stanley Unavailable Marilia Deluna PhD Unavailable Niyah Decker [facility] Unavailable Lesvia Stanley Unavailable Delia Avila [facility] Unavailable [phone] Mago Swift [facility] Unavailable Niyah Decker [facility] Unavailable Encounter Details Date Type Department Care Team Description 07/13/2022 Travel Social History Tobacco Use Types Packs/Day [...] How often do you attend presybeterian or restorationism services? Never 08/05/2021 Do you belong to [...] at Date Recorded Female 11/09/2021 7:53 PM STEEL ERECTOR COVID-19 Exposure Response Date Recorded In the last 10 days, have you been in contact with No / Unsu re 07/13/2022 3:24 PM CDT someone who was confirmed or suspected to have Coronavirus/COVID-19? documented as of this encounter Plan of Treatment Upcoming Encounters Date Type Specialty Care Team Description 09/26/2022 Appointment Speech Obdulio Medina MD 420 [facility] 276 [place] [address] Anabel Chew, SENIOR HEALTH CONSULTANT [place] [address] [facility] [address] [place] [address] 09/27/2022 Therapy Visit Physical Therapy Luisana Watkins, PT [address] [place] [address] 09/29/2022 Virtual Visit Pain & Palliative Marilia Deluna, Care PhD [address] [place] [address] 09/30/2022 Office Visit Family Practice Aydee Burton, ASSOCIATE CIVIL ENGINEER [facility] [address] [place] [address] 10/03/2022 Therapy Visit Physical Therapy Una Reardon, PT [address] [place] [phone] 10/10/2022 Hospital Encounter Surgery Lesly Celaya MD [address] [place], [place] [address] 10/10/2022 Office Visit Surgery Lesly Celaya MD [address] [place] [address] Ninoska Flowers PA-C [address] [place] [address] 10/10/2022 Surgery Surgery Lesly Celaya, EXCISION, MASSES - MD back, abdomen, [address] right lower [address] extremity [place], [place] [address] 10/11/2022 Virtual Visit Cara Ruiz, Clari Banks, [facility] [address] [place] [address] 10/14/2022 Appointment Speech Therapy Anabel Chew, SENIOR HEALTH CONSULTANT [address] [address] 10/21/2022 Office Visit Pulmonology Obdulio Barrera MD [address] [address] 10/25/2022 PRE VISIT ENT Charo Burton MD Previsit [address] [place] [address] 10/25/2022 Office Visit ENT Charo Burton MD [address] [place], [place] [address] 10/25/2022 Office Visit ENT Provider, 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 Office Clerk Routine 10/28/2022 Appointment Speech Therapy Anabel Chew, SENIOR HEALTH CONSULTANT [address] 3[address] 11/17/2022 Appointment Speech Therapy Anabel Chew SENIOR HEALTH CONSULTANT [address] [address] 12/23/2022 Office Visit Neurology Colby Yeung MD [address] [address] Scheduled Procedures Name Priority Associated Diagnoses Date/Time EXCISION, MASS, TORSO Lipoma of skin and subcuta neous 10/10/2022 7:30 AM STEEL ERECTOR tissue documented as of this encounter Goals Goal Patient Goal Associated Recent Patient-Stated? Author Type Problems Progress Attend Speciality Care Plan Establish Care 50% No Ahe rn, Appointments (08/29/2022 Mago Murray, (STORY TELLER, 3:24 PM CDT) [facility] Psychiatry, Counseling, and the Sleep Clinic) Note: Formatting of this note is differe nt from the original. Barriers: Appointment availability. Strengths: Recognition of need, Care Latent Print Examiner rdination involvement. Patient expressed understanding of [...] on: 08/16/2022 9:45 AM Lesly Celaya MD [facility] [place] To address painful lumps in my abdomin [...] documented as of this encounter Care Teams Simulation Software Engineer Relationship Specialty Start Date End Date Aydee Burton, PCP - General Nurse Practitioner - 05/17/21 ASSOCIATE CIVIL ENGINEER SHELLFISH CHECKER Family [address] [place], [place] [phone] Aydee Burton, Assigned PCP 04/28/21 ASSOCIATE CIVIL ENGINEER SHELLFISH CHECKER [address] [place], [place] [phone] Louisa Hood, Assigned Neuroscience 07/11/21 ASSOCIATE CIVIL ENGINEER SHELLFISH CHECKER Provider [address] [place], [place] [phone] [place], Assigned Sleep 08/01/21 Angel Turcios, Provider [address] [place], [place] [phone] Lesly Celaya MD Assigned Surgical 09/05/21 [address] [place] [place] [address] Tawana Patel MA [facility] Health 09/30/21 Worker Ramses Mcpherson Assigned OBGYN 11/07/21 MD Onesimo Provider [address] [place] [address] Obdulio Barrera MD Critical Care 01/24/22 420 [facility] 276 [place], [place] [phone] Obdulio Barrera, Assigned Pulmonology 02/06/22 MD Provider 420 [facility] [address] [place], [place] [address] Lesvia Stanley, EP Cardiac Rehabilitation 03/03/22 03/03/23 [facility] Therapist [address] [place] [address] Marilia Deluna, PhD Assigned Behavioral 02/20/22 [address] [facility] [place] [address] Niyah Decker, [facility] Pharmacist Pharmacist 03/07/[address] [place] [address] [address] [place], [place] [address] Lesvia Stanley, GHDAA Cardiac Rehabilitation 03/17/22 03/17/23 [facility] Therapist [address] [place] [address] Delia Avila, Pharmacist Pharmacist 06/07/22 [facility] [address] [place] [address] Mago Swift, [facility] Lead Dehydrogenation Operator Inventory Control Clerk - 08/05/21 Clinical Niyah Decker, [facility] Assigned MTM 06/25/22 07/29/[address] [place] [address] 812 [place] [address] documented as of this encounter
--- OUTSIDE RECORDS SUMMARY | 2022-09-21 03:59 | XMS_ITS | Encounter Summary ---
:1980 Author Organization [facility] Address [address] [place] [address] Care Team Providers Name Role Phone Aydee Burton ELEVATOR OPERATOR SERVICE CONTROLLER INSTRUCTOR Primary Care Provider [phone] Aydee Burton APRN CONTROLLER INSTRUCTOR Unavailable [phone] Louisa Hood ELEVATOR OPERATOR SERVICE CONTROLLER INSTRUCTOR Unavailable [phone] Angel Hannah MD Unavailable Lesly Celaya MD Unavailable Tawana Patel MA Unavailable Unavailable Ramses Mcpherson MD Unavailable [phone] Obdulio Barrera MD Unavailable [phone] Obdulio Barrera MD Unavailable [phone] Lesvia Stanley Unavailable Marilia Deluna PhD Unavailable Niyah Decker [facility] Unavailable Lesvia Stanley Unavailable Delia Avila [facility] Unavailable [phone] JamisonMago [facility] Unavailable Leela Jarvis [facility] Unavailable Niyah Decker [facility] Unavailable Reason for Visit Reason Comments Pain Encounter Details Date Type Department Care Team Description 08/10/2022 Office Visit [facility] Caleb Dewey MD Chronic pain syndrome (Primary Dx); Pain Management [address] Neuropathic pain; [place], [place] Myofascial pain syndrome [address] [address] [address] [place] [address] [phone] Social History Tobacco Use Types Packs/Day Years [...] er 08/05/2021 How often do you attend alevism or denominational services? 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 documented as of this encounter Last Filed Vital Signs Vital Sign Reading Time Taken Comments Blood Pressure 135/81 08/10/2022 1:24 PM CDT Pulse 110 08/10/2022 1:24 PM CDT Temperature - - Respiratory Rate - - Oxygen Saturation 97% 08/10/2022 1:24 PM CDT Inhaled Oxygen Concentration - - Weight - - Height - - Body Mass Index - - documented in this encounter Patient Instructions Patient InstructionsTatiana Cleaning CMA - 08/10/2022 1:30 PM CDT [facility] Post Procedure Instructions Today you had: trigger point injections Medications used: bupivicaine kenolog Go to the emergency room if you develop any shortness of breath Monitor the injection sites for signs and symptoms of infection-fever, chills, redness, swelling, warmth, or drainage to areas. You may have soreness at injection sites for up to 24 hours. It may take up to 14 days for the steroid medication to start working although you may feel the effect as early as a few days after the procedure. You may apply ice to the painful areas to help minimize the discomfort of the needle pokes. Do not apply heat to sites for at least 12 hours. You may use anti-inflammatory medications or Tylenol for pain control if necessary Pain Clinic phone number during work hours (Monday through Monday 8 am-4:30 pm) at [phone] or the Provider Line after hours at [phone]: documented in this encounter Progress Notes Caleb Dewey MD - 08/10/2022 1:30 PM CDT Images from the original note were not included. [facility] Date of visit: 08/10/2022 Chief complaint: Chief Complaint Patient presents with ??? Pain Interval history: Marta Hill is a 42 year old female last seen by DR ANAYA for FOLLOW UP on 02/24/2022. Her INITIAL CONSULT with me was on 06/23/2022. Today is her second FOLLOW UP. Since her last visit, Marta Hill reports: - Transfer of care for previous patient of Dr. Anaya. - Here to discuss recent cervical MRI and injection options - She started PT a few weeks ago and has gone multiple times. She does feel a little better for a few days after PT, attributing this to massage and passive stretching. - Pain is primarily in her neck and back of her head. Her neck feels tight and she cannot straightenher head out. - Recently her pain is wrapping around the front of her head and causing headaches. - Still interested in child day care provider - She saw neurology in June who proposed occipital nerve blocks pending cervical MRI - Last had b/l occipital never blocks on 12/01/2021 and this helped with neck and head pain a little for a couple weeks. - She tried botox injections but this worsened her pain - She has tapered off of Gabapentin and started lyrica. - Lyrica is reducing her pain but is causing GI upset, although this is tollerable - She fell at work and broke her left elbow (work comp) Dr. Linder at [facility]. She has severe asthma and may not be a candidate to have her screws taken out. She is seeing her core cleaner later this monthand hopes to be cleared for surgery. - Curtain Fitter is Dr. Barrera through [facility]. - Lives in [facility] [place] of [facility] [place]. - Kids are 20, 18, 15, 13, 11 and 10 years old and she is . This went through in 2019 and she has shared custody 50:50. 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 INJECTIONS/SURGERY: Occipital nerve blocks 12/01/2021 trigger point injection Nov 2021 BOTOX injections many years ago at [facility] - made SHETH's worse IMAGING: MRI CERVICAL SPINE 07/08/2022: FINDINGS: Alignment: Reversal of normal lordosis. Vertebral height: No acute fracture. Cervical vertebral body heights are maintained. Marrow signal: Normal. Spinal cord: No abnormal signal. Extraspinal: No extraspinal abnormality. ?? Craniovertebral junction: Normal. ?? C1-2: Normal ?? C2-3: Normal height of disc. Desiccated disc. No disc herniation. No uncovertebral hypertrophy. Normal facet joints. No central spinal stenosis, no right foramen stenosis, no left foramen stenosis. ?? C3-4: Slight loss of disc height. Desiccated disc. No disc herniation. No uncovertebral hypertrophy.Normal facet joints. No central spinal stenosis, no right foramen stenosis, no left foramen stenosis. ?? C4-5: Slight loss of disc height. Desiccated disc. No disc herniation. No uncovertebral hypertrophy.Normal facet joints. No central spinal stenosis, no right foramen stenosis, no left foramen stenosis. ?? C5-6: Slight loss of disc height. Desiccated disc. No disc herniation. No uncovertebral hypertrophy.Normal facet joints. No central spinal stenosis, no right foramen stenosis, no left foramen stenosis. ?? C6-7: Normal height of disc. Desiccated disc. Shallow disc osteophyte complex. No uncovertebral hypertrophy. Normal facet joints. No central spinal stenosis, no right foramen stenosis, no left foramen stenosis. ?? C7-T1: Normal height of disc. Normal disc signal. No disc herniation. No uncovertebral hypertrophy. Normal facet joints. No central spinal stenosis, no right foramen stenosis, no left foramen stenosis. IMPRESSION: 1. No significant central or foraminal stenosis. 2. Slight disc osteophyte complex at C6-C7. LABS: NONE Medications: Current Outpatient Medications Medication Sig Dispense [...] hours as needed for nausea 20 tablet 0 ??? pregabalin (LYRICA) 25 MG capsule Take 1 capsule (25 mg) by mouth 2 times daily 60 capsule 0 ??? QUEtiapine (SEROQUEL) 100 MG [...] tablet Take 1 tablet by mouth daily Review of Systems: ROS: Constitutional, neuro, ENT, endocrine, pulmonary, cardiac, gastrointestinal, genitourinary, musculoskeletal, integument and psychiatric systems are negative, except as otherwise noted. Physical Exam: Last menstrual period 12/11/2021, not currently . GENERAL: Healthy, alert and no distress EYES: Eyes grossly normal to inspection. No discharge or erythema, or obvious scleral/conjunctival abnormalities. RESP: No audible wheeze, cough, or visible cyanosis. No visible retractions or increased work of breathing. SKIN: Visible skin clear. No significant rash, abnormal pigmentation or lesions. NEURO: Cranial nerves grossly intact. Mentation and speech appropriate for age. 5/5 strength in bilateral upper extremities Trigger point at left upper trap sends pain down her left arm to forearm. PSYCH: Mentation appears normal, affect normal/bright, judgement and insight intact, normal speech and appearance well-groomed. ASSESSMENT/PLAN: Marta Hill is a 42 year old female has a past medical history of asthma and mental health history significant for PTSD, depression and anxity. Marta Hill is a 42 year old female is being seen at the pain clinic for chronic facial pain, neck pain and headaches. Her neck pain has been radiating down her left upper extremity and is reproducible when palpating a left upper trapezius trigger point. She is interested in trigger point injections today. 1. Chronic pain syndrome LEFT ARM PAIN: She sustained a radial head fracture of the left elbow in dec 2020 and are scheduled for surgery to have screws removed. Needs pulmonary clearance first secondary to asthma. Mental Health - the patient's mental health concerns, specifically??anxiety, stress, depression, affect her experience of pain and contribute to her clinically significant distress. Recommend continuedclose follow up with psychiatry. HEADACHES: Marta has had a long standing history of chronic neck pain and headaches and has been diagnosed with occipital neuralgia at [facility] years ago. She has established care with Neurology for her headaches (Dr. Yeung) Previously went to [facility] and has tried botox in the past without success. CHRONIC NECK PAIN: She continues to have severe neck pain with radiation down left arm primarily. These symptoms have also been present for years and exacerbate her headaches.Trigger points identified primarily at left upper trapezius. - MR Cervical Spine w/o Contrast was performed on 07/08/22 and reviewed today. 2. Neuropathic pain She has been taking Lyrica 25 mg twice a day and has experienced pain relief. She has some GI upset but it is tolerable to her. We will increase Lyrica to 50 mg TID. 3. Myofascial pain syndrome TRIGGER POINT INJECTIONS WERE DONE TODAY (see note below) - MARCAINE 0.5% TPI - triamcinolone (KENALOG-40) injection 40 mg MEDICATIONS: Orders Placed This Encounter Medications ??? pregabalin (LYRICA) 50 MG capsule Sig: Take 1 capsule (50 mg) by mouth 3 times daily Dispense: 90 capsule Refill: 0 ??? MARCAINE 0.5% TPI ??? triamcinolone (KENALOG-40) injection 40 mg FOLLOW UP: Every 3 months BILLING TIME DOCUMENTATION: The total TIME spent on this patient on the date of the encounter/appointment was 49 minutes. TOTAL TIME includes: Time spent preparing to see the patient (reviewing records and tests) - 2 min Time spent face to face (or over the phone) with the patient - 36 min Time spent ordering tests, medications, procedures and referrals - 1 min Time spent Referring and communicating with other healthcare professionals - 0 min Time spent documenting clinical information in Epic - 10 min The patient's assessment and plan was discussed with my attending physician Dr. Dewey. Juan Carlos Murphy DO Pain medicine fellow CALEB DEWEY MD Pain Management & Addiction Medicine [facility] - Procedure Note Date of Visit: 08/10/2022 Pre procedure Diagnosis: myofascial pain/myositis 60.9 Post procedure Diagnosis: Same Procedure performed: trigger point injections Complications: none Operators: Caleb Dewey MD Indications: Marta Hill is a 42 year old female with a history of left sided neck pain. Exam shows myofascial pain of the muscle groups listed below and they have tried conservative treatment including PT and medications. Options/alternatives, benefits and risks were discussed with the patient including bleeding, infection, tissue trauma and pnuemothorax. Questions were answered to her satisfaction and she agrees to proceed. Voluntary informed consent was obtained and signed. Vitals allergies and medications were reviewed. Procedure: After getting informed consent, a Pause for the Cause was performed. Trigger points were identified by patient, and marked when appropriate. The area was prepped with Chloroprep. Using clean technique, injections were completed using a 25G, 1.5 inch needle. After negative aspiration, injection was completed. A total of 6 locations were injected. When possible, tissue was retracted from the chest wall to avoid lung injury. Muscle groups injected: LEFT Trapezius LEFT Splenius Capitis LEFT levator scapulae LEFT cervical paraspinals Injection solution contained: 9ml of 0.5% bupivacaine & 40mg kenolog. Hemostasis was achieved, the area was cleaned, and bandaids were placed when appropriate. The patient tolerated the procedure well. Breath sounds were normal. Follow-up includes: -f/u with the referring provider -repeat as needed CALEB DEWEY MD Pain Management & Addiction Medicine documented in this encounter Plan of Treatment Upcoming Encounters Date Type Specialty Care Team Description 09/26/2022 Appointment Speech Therapy Obdulio Barrera MD [address] [place] [address] Anabel Chew, GM VIDEO [facility] [address] [facility] [address] [place], [place] [phone] 09/27/2022 Therapy Visit Physical Therapy Luisana Watkins, PT [address] [place] [address] 09/29/2022 Virtual Visit Pain & Palliative Marilia Deluna, [facility] PhD [address] [place] [address] 09/30/2022 Office Visit Family Practice Adyee Burton, ELEVATOR OPERATOR SERVICE CONTROLLER INSTRUCTOR [address] [place] [address] 10/03/2022 Therapy Visit Physical Therapy Una Reardon, PT [address] [place] [address] 10/10/2022 Hospital Encounter Surgery Lesly Celaya MD [address] [place] [address] 10/10/2022 Office Visit Surgery Lesly Celaya MD [address] [place] [address] Ninoska Flowers PA-C [address] [place] [address] 10/10/2022 Surgery Surgery Lesly Celaya, EXCISION, MASSES - MD back, abdomen, [address] right lower [facility] [place] [address] 10/11/2022 Virtual Visit Clari Su, [place] [id number] [address] [address] 10/14/2022 Appointment Speech Therapy Anabel Chew, GM [facility]IDEO [address] [id number] 10/21/2022 Office Visit Pulmonology Obdulio Barrera MD [address] 784[address] 10/25/2022 PRE VISIT ENT Charo Burton MD Previsit [address] [place] [id number] 10/25/2022 Office Visit ENT Charo Burton MD [address] [place], [place] [address] 10/25/2022 Office Visit ENT Provider, 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 10/28/2022 Appointment Speech Therapy Anabel Chew, GM [facility] [address] [id number] 11/17/2022 Appointment Speech Therapy Anabel Chew GM [facility] [address] [phone] 12/23/2022 Office Visit Neurology Colby Yeung MD [address] [place] [address] Scheduled Procedures Name Priority Associated Diagnoses Date/Time EXCISION, MASS, TORSO Lipoma of skin and subcuta neous 10/10/2022 7:30 AM RESIDENTIAL AIDE tissue documented as of this encounter Goals Goal Patient Goal Associated Recent Patient-Stated? Author Type Problems Progress Attend Speciality Care Plan Establish Care 50% No Randal rn, Appointments (08/29/2022 Mago Murray, (SUPERVISOR PAINTING DEPARTMENT, 3:24 PM CDT) [facility] Psychiatry, Counseling, and the Sleep Clinic) Note: Formatting of this note is differe nt from the original. Barriers: Appointment availability. Strengths: Recognition of need, Care Meter Reader Chief rdination involvement. Patient expressed understanding of [...] on: 08/16/2022 9:45 AM Lesly Celaya MD [facility] Surgery [facility] To address painful lumps in my abdomin [...] Swift well-managed. self-managed 3:14 PM CDT) [facility] Note: Formatting of this note might [...] as of this encounter Visit Diagnoses Diagnosis Chronic pain syndrome - Primary Neuropathic pain Neuralgia, neuritis, and radiculitis, un specified Myofascial pain syndrome Mylagia and myositis, unspecified Lipoma of skin and subcutaneous tissue Lipoma of other skin and subcutaneous ti ssue documented in this encounter Administered Medications Inactive Administered Medications - up to 3 most recent administrations Medication Order MAR Action Action Date Dose Rate Site MARCAINE 0.5% TPI Given 08/10/2022 2:52 PM CDT 50 mg 50 mg (10 mL), Intradermal, ONCE, On Mon08/10/22 at 1500, For 1 dose, trigger point injection triamcinolone (KENALOG-40) injection 40 mg Given 08/10/2022 2:51 PM CDT 40 mg 40 mg, Intramuscular, ONCE, On Mon08/10/22 at 1500, For 1 dose, trigger point injection documented in this encounter Additional Health Concerns Problem Noted Date Establish Care 07/05/2022 Chronic Pain is not self-managed 07/05/2022 Assessment Noted Time PHQ-9 Depression Total Score: 16 06/24/2022 9:31 AM CD T documented as of this encounter Care Teams Nursing Agency Manager Relationship Specialty Start Date End Date Aydee Burton, PCP - General Nurse Practitioner - 05/17/21 ELEVATOR OPERATOR SERVICE CONTROLLER INSTRUCTOR Family [address] [place] [address] [id number] Aydee Burton, Assigned PCP 04/28/21 ELEVATOR OPERATOR SERVICE CONTROLLER INSTRUCTOR [address] [place] [address] [id number] Louisa Hood, Assigned Neuroscience 07/11/21 ELEVATOR OPERATOR SERVICE CONTROLLER INSTRUCTOR Provider [address] [place], [place] [phone] [place], Assigned Sleep 08/01/21 Angel Turcios, Provider [address] [place], [place] [phone] Lesly Celaya MD Assigned Surgical 09/05/21 [address] [facility] Provider [place], [place] [address] Tawana Patel MA [facility] 09/30/21 Worker Ramses Mcpherson Assigned OBGYN 11/07/21 MD Onesimo Provider [address] [place], [place] [phone] Obdulio Barrera MD Critical Care 01/24/22 [address] [facility] [address] [place], [place] [address] Obdulio Barrera, Assigned Pulmonology 02/06/22 MD Provider [address] [place] [id number] Lesvia Stanley, GHADA Cardiac Rehabilitation 03/03/22 03/03/23 [facility] Therapist [address] [place], [place] [address] Marilia Deluna, PhD Assigned Behavioral 02/20/22 [address] [facility] [place] [place] [address] Niyah Decker, [facility] Pharmacist Pharmacist 03/07/22 420 [facility] [address] [place], [place] [phone] Lesvia Stanley, GHADA Cardiac Rehabilitation 03/17/22 03/17/23 [facility] Therapist [address] [place] [address] Delia Avila, Pharmacist Pharmacist 06/07/22 [facility] [address] [place], [place] [address] Mago Swift, [facility] Lead External Grinder Floor Care Specialist - 08/05/21 Clinical Leela Jarvis RPH Pharmacist 07/26/22 05/15/[address] [facility] [place] [address] Niyah Decker RPH Assigned [place] 08/10/22 420 [facility] [address] Pharmacist [place] [address] documented as of this encounter
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
--- OUTSIDE RECORDS SUMMARY | 2022-09-21 03:59 | XMS_ITS | Encounter Summary ---
:1980 Author Organization [place] Address [address] [place] [address] Care Team Providers Name Role Phone Aydee Burton MARBLE MASON CHIEF ELECTRICIAN Primary Care Provider Aydee Burton APRN CHIEF ELECTRICIAN Unavailable [phone] Louisa Hood MARBLE MASON CHIEF ELECTRICIAN Unavailable [phone] Angel Hannah MD Unavailable Lesly Celaya MD Unavailable Tawana Patel MA Unavailable Unavailable Ramses Mcpherson MD Unavailable [phone] Obdulio Barrera MD Unavailable [phone] Obdulio Barrera MD Unavailable [phone] Lesvia Stanley Unavailable Marilia Deluna PhD Unavailable Niyah Decker [facility] Unavailable Lesvia Stanley Unavailable Delia Avila [facility] Unavailable [phone] Mago Swift [facility] Unavailable EvertonLeela davis [facility] Unavailable Encounter Details Date Type Department Care Team Description 08/04/2022 Travel Social History Tobacco Use Types Packs/Day [...] How often do you attend protestant or mu-ism services? Never 08/05/2021 Do you belong to [...] place to sleep or slept in a residential (including now)? Sex Assigned at Date Recorded Female 11/09/2021 7:53 PM DAIRY FEED MIXING OPERATOR COVID-19 Exposure Response Date Recorded In the last 10 days, have you been in contact with No / Unsu re 08/04/2022 2:27 PM CDT someone who was confirmed or suspected to have Coronavirus/COVID-19? documented as of this encounter Plan of Treatment Upcoming Encounters Date Type Specialty Care Team Description 09/26/2022 Appointment Speech Therapy Obdulio Barrera MD 420 [facility] 276 [place] [address] Anabel Chew, PIANO CASE MAKER [address] [place] [address] 09/27/2022 Therapy Visit Physical Therapy Luisana Watkins, PT [address] [place] [address] 09/29/2022 Virtual Visit Pain & Palliative Marilia Deluna, Care PhD [address] [place] [address] 09/30/2022 Office Visit Family Practice Aydee Burton, MARBLE MASON CHIEF ELECTRICIAN [address] [place] [address] 10/03/2022 Therapy Visit Physical Therapy Una Reardon, PT [address] [place] [phone] 10/10/2022 Hospital Encounter Surgery Lesly Celaya MD [address] [place], [place] [address] 10/10/2022 Office Visit Surgery Lesly Celaya MD [address] [place], [place] [phone] Ninoska Flowers PA-C [address] [place] [address] 10/10/2022 Surgery Surgery Lesly Celaya, EXCISION, MASSES - MD back, abdomen, [address] right lower [address] extremity [place], [place] [address] 10/11/2022 Virtual Visit Clari Su, [address] [place] [address] 10/14/2022 Appointment Speech Therapy Anabel Chew, PIANO CASE MAKER [address] [address] 10/21/2022 Office Visit Pulmonology Obdulio Barrera MD [address] [address] 10/25/2022 PRE VISIT ENT Charo Burton MD Previsit [address] [place] [address] 10/25/2022 Office Visit ENT Charo Burton MD [address] [place], [place] [address] 10/25/2022 Office Visit ENT Provider, 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 Digital Associate Media Director 10/28/2022 Appointment Speech Therapy Anabel Chew, PIANO CASE MAKER [address] [address] 11/17/2022 Appointment Speech Therapy Anabel Chew, PIANO CASE MAKER [address] [address] 12/23/2022 Office Visit Neurology Colby Yeung MD [address] [address] Scheduled Procedures Name Priority Associated Diagnoses Date/Time EXCISION, MASS, TORSO Lipoma of skin and subcuta neous 10/10/2022 7:30 AM DAIRY FEED MIXING OPERATOR tissue documented as of this encounter Goals Goal Patient Goal Associated Recent Patient-Stated? Author Type Problems Progress Attend Speciality Care Plan Establish Care 50% No Ahe rn, Appointments (08/29/2022 Mago Murray, (HOSPITAL CHIEF EXECUTIVE OFFICER, 3:24 PM CDT) [facility] Psychiatry, Counseling, and the Sleep Clinic) Note: Formatting of this note is differe nt from the original. Barriers: Appointment availability. Strengths: Recognition of need, Care Permit Technician rdination involvement. Patient expressed understanding of [...] on: 08/16/2022 9:45 AM Lesly Celaya MD [facility] [place] To address painful lumps in my abdomin [...] documented as of this encounter Care Teams Geophysical Laboratory Chief Relationship Specialty Start Date End Date Aydee Burton, PCP - General Nurse Practitioner - 05/17/21 MARBLE MASON CHIEF ELECTRICIAN Family [address] [place], [place] [phone] Aydee Burton, Assigned PCP 04/28/21 MARBLE MASON CHIEF ELECTRICIAN [address] [place], [place] [phone] Louisa Hood, Assigned Neuroscience 07/11/21 MARBLE MASON CHIEF ELECTRICIAN Provider [address] [place], [place] [phone] [place], Assigned Sleep 08/01/21 Angel Turcios, Provider [address] [place], [place] [phone] Lesly Celaya MD Assigned Surgical 09/05/21 [address] [place] [address] Tawana Patel MA [facility] Health 09/30/21 Worker Ramses Mcpherson Assigned OBGYN 11/07/21 MD Onesimo Provider [address] [place] [address] Obdulio Barrera MD Critical Care 01/24/22 420 [facility] [address] [place] [address] Obdulio Barrera, Assigned Pulmonology 02/06/22 MD Provider 420 [facility] 276 [place], [place] [address] Lesvia Stanley, GHADA Cardiac Rehabilitation 03/03/22 03/03/23 [facility] Therapist [address] [id number] Marilia Deluna, PhD Assigned Behavioral 02/20/22 [address] [facility] [place] [address] Niyah Decker, [facility] Pharmacist Pharmacist 03/07/22 420 [facility] 812 [place] [address] Lesvia Stanley, GHADA Cardiac Rehabilitation 03/17/22 03/17/23 [facility] Therapist [address] [id number] Delia Avila, Pharmacist Pharmacist 06/07/22 [facility] [address] [place] [address] Mago Swift, [facility] Lead Sales Assistant Coal Bagger - 08/05/21 Clinical Leela Jarvis, [facility] Pharmacist 07/26/22 05/15/23 [address] [facility] [place] [address] documented as of this encounter
--- OUTSIDE RECORDS SUMMARY | 2022-09-21 03:59 | XMS_ITS | Encounter Summary ---
:1980 Author Organization [place] Address [address] [place] [address] Care Team Providers Name Role Phone Aydee Burton JIG MAKER TRAINS DISPATCHER SUPERVISOR Primary Care Provider [phone] Aydee Burton APRN TRAINS DISPATCHER SUPERVISOR Unavailable [phone] Louisa Hood JIG MAKER TRAINS DISPATCHER SUPERVISOR Unavailable [phone] Angel Hannah MD Unavailable Lesly Celaya MD Unavailable Tawana Patel MA Unavailable Unavailable Ramses Mcpherson MD Unavailable [phone] Obdulio Barrera MD Unavailable [phone] Obdulio Barrera MD Unavailable [phone] Lesvia Stanley Unavailable Marilia Deluna PhD Unavailable Niyah Decker [facility] Unavailable Lesvia Stanley Unavailable Delia Avila [facility] Unavailable [phone] Jamison Mago Terri [facility] Unavailable Niyah Decker [facility] Unavailable Reason for Visit Reason Onset Date Comments Refill Request 07/12/2022 pregabalin (LYRICA) 25 MG capsule Encounter Details Date Type Department Care Team Description 07/12/2022 Refill [facility] Julio Vargas MD Refill Request Management [facility] [id number] [place] [address] (pregabalin (LYRICA) [address] [place] [address] MG capsule) [place] [address] [place] [address] Social History Tobacco Use Types Packs/Day Years [...] er 08/05/2021 How often do you attend pentecostal or anabaptism services? Never 08/05/2021 Do you belong to any clubs or organizations such as pentecostal N o 08/05/2021 groups, unions, fraternal or [...] at Date Recorded Female 11/09/2021 7:53 PM CELL BIOLOGY SCIENTIST COVID-19 Exposure Response Date Recorded In the last 10 days, have you been in contact with No / Unsu re 07/11/2022 12:53 PM CDT someone who was confirmed or suspected to have Coronavirus/COVID-19? documented as of this encounter Miscellaneous Notes Telephone Encounter - Caleb Dewey MD - 07/12/2022 11:26 AM CDT Script Epres[place] to pharmacy [place] Prescription Monitoring Program checked Signed Prescriptions: Disp Refills pregabalin (LYRICA) 25 MG capsule 60 cap*0 Sig: Take 1 capsule (25 mg) by mouth 2 times daily Authorizing Provider: CALEB DEWEY MD Telephone Encounter - Paula Ray CMA - 07/12/2022 9:50 AM CDT Received fax request from [facility] [address] [place] [address] [place]?? pharmacy requesting refill(s) for pregabalin (LYRICA) 25 MG capsule Last refilled on 06/23/2022 Pt last seen on 06/23/2022 Next appt scheduled for None Will facilitate refill. Paula Cruz MA [facility] documented in this encounter Plan of Treatment Upcoming Encounters Date Type Specialty Care Team Description 09/26/2022 Appointment Speech Therapy Obdulio Barrera MD 420 [facility] 276 [place] [address] Anabel Chew, CASING WORKER [facility] 516 [facility] 396 [place], [place] [address] 09/27/2022 Therapy Visit Physical Therapy Luisana Watkins, PT [address] [place] [address] 09/29/2022 Virtual Visit Pain & Palliative Marilia Deluna, [facility] PhD [address] [place] [address] 09/30/2022 Office Visit Family Practice Aydee Burton, JIG MAKER TRAINS DISPATCHER SUPERVISOR [address] [place], [place] [address] 10/03/2022 Therapy Visit Physical Therapy Una Reardon, PT [address] [place] [phone] 10/10/2022 Hospital Encounter Surgery Lesly Celaya MD [address] [place], [place] [address] 10/10/2022 Office Visit Surgery Lesly Celaya MD [address] [place], [place] [address] Ninoska Flowers, PA-C [address] [facility] [address] [place] [address] 10/10/2022 Surgery Surgery Lesly Celaya, EXCISION, MASSES - MD back, abdomen, [address] right lower [facility] [address] 10/11/2022 Virtual Visit Clari Su, [facility] 24[address] [facility] [address] [place], [place] [address] 10/14/2022 Appointment Speech Therapy Anabel Chew, CASING WORKER [facility] 516 [facility] 396 [place], [place] [address] 10/21/2022 Office Visit Pulmonology Obdulio Barrera MD 420 [facility] 276 [place] [address] 10/25/2022 PRE VISIT ENT Charo Burton MD Previsit [address] [place] [address] 10/25/2022 Office Visit ENT Charo Burton MD [address] [place] [address] 10/25/2022 Office Visit ENT Provider, Jeannette 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 Swimming Teacher 10/28/2022 Appointment Speech Therapy Anabel Chew, CASING WORKER [address] [address] 11/17/2022 Appointment Speech Therapy Anabel Chew CASING WORKER [address] [address] 12/23/2022 Office Visit Neurology Colby Yeung MD [address] [place] [address] Scheduled Procedures Name Priority Associated Diagnoses Date/Time EXCISION, MASS, TORSO Lipoma of skin and subcuta neous 10/10/2022 7:30 AM CELL BIOLOGY SCIENTIST tissue documented as of this encounter Goals Goal Patient Goal Associated Recent Patient-Stated? Author Type Problems Progress Attend Speciality Care Plan Establish Care 50% No Karene rn, Appointments (08/29/2022 Mago Murray (SUPERVISOR METER REPAIR SHOP, 3:24 PM CDT) [facility] Psychiatry, Counseling, and the Sleep Clinic) Note: Formatting of this note is differe nt from the original. Barriers: Appointment availability. Strengths: Recognition of need, Care Criminal Intelligence Specialist rdination involvement. Patient expressed understanding of [...] Lesly Celaya MD [facility] [place] To address painful lumps in my abdomin [...] documented as of this encounter Care Teams Flying Squad Salesperson Relationship Specialty Start Date End Date Aydee Burton, PCP - General Nurse Practitioner - 05/17/21 JIG MAKER TRAINS DISPATCHER SUPERVISOR Family [address] [place], [place] [address] Aydee Burton, Assigned PCP 04/28/21 JIG MAKER TRAINS DISPATCHER SUPERVISOR [address] [place], [place] [phone] Louisa Hood, Assigned Neuroscience 07/11/21 JIG MAKER TRAINS DISPATCHER SUPERVISOR Provider 500 [place] [address] [place], Assigned Sleep 08/01/21 Angel Turcios, Provider [address] [place], [place] [phone] Lesly Celaya MD Assigned Surgical 09/05/21 [address] [place] [address] Tawana Patel [facility] 09/30/21 Worker Ramses Mcpherson Assigned OBGYN 11/07/21 MD Onesimo Provider [address] [place] [address] Obdulio Barrera MD Critical Care 01/24/[address] [phone] Obdulio Barrera, Assigned Pulmonology 02/06/22 MD Provider [address] [address] Lesvia Stanley EP Cardiac Rehabilitation 03/03/22 03/03/23 [facility] Therapist [address] [address] Marilia Deluna, PhD Assigned Behavioral 02/20/22 [address] [facility] [place] [address] Niyah Decker, [facility] Pharmacist Pharmacist 03/07/22 420 [facility] 812 [place] [address] Lesvia Stanley, GHADA Cardiac Rehabilitation 03/17/22 03/17/23 [facility] Therapist [address] [id number] Delia Avila, Pharmacist Pharmacist 06/07/22 [facility] 909 [place] [address] Mago Swift, [facility] Lead Recruitment Specialist Test Fixture Assembler - 08/05/21 Clinical Niyah Decker, [facility] Assigned MTM 06/25/22 07/29/[address] [place] [address] 81 [place] [address] documented as of this encounter
--- OUTSIDE RECORDS SUMMARY | 2022-09-21 04:00 | XMS_ITS | Encounter Summary ---
:1980 Author Organization Deal Address [address] [place] [address] Care Team Providers Name Role Phone Aydee Burton CLINIC MANAGER FOUNDRY MANAGER Primary Care Provider Aydee Burton APRN FOUNDRY MANAGER Unavailable [phone] Louisa Hood CLINIC MANAGER FOUNDRY MANAGER Unavailable [phone] Angel Hannah MD Unavailable Lesly Celaya MD Unavailable Tawana Patel MA Unavailable Unavailable Ramses Mcpherson MD Unavailable [phone] Obdulio Barrera MD Unavailable [phone] Obdulio Barrera MD Unavailable [phone] Lesvia Stanley Unavailable Marilia Deluna PhD Unavailable Niyah Decker [facility] Unavailable Lesvia Stanley Unavailable Delia Avila [facility] Unavailable [phone] Mago Swift [facility] Unavailable Niyah Decker [facility] Unavailable Encounter Details Date Type Department Care Team Description 07/06/2022 Travel Social History Tobacco Use Types Packs/Day [...] How often do you attend sabianist or anabaptist services? 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/2021 7:53 PM CELL INSPECTOR COVID-19 Exposure Response Date Recorded In the last 10 days, have you been in contact with No / Unsu re 07/06/2022 11:58 AM CDT someone who was confirmed or suspected to have Coronavirus/COVID-19? documented as of this encounter Plan of Treatment Upcoming Encounters Date Type Specialty Care Team Description 09/26/2022 Appointment Speech Obdulio Medina MD [address] [facility] [address] [place] [address] Anabel Chew, CONCRETE BOOM PUMP OPERATOR [place] [id number] [facility] [address] [place] [address] 09/27/2022 Therapy Visit Physical Therapy Luisana Watkins, PT [address] [place] [address] 09/29/2022 Virtual Visit Pain & Palliative Marilia Deluna, Care PhD [address] [place] [address] 09/30/2022 Office Visit Family Practice Aydee Burton, CLINIC MANAGER [facility] [address] [place] [address] 10/03/2022 Therapy Visit Physical Therapy Una Reardon, PT [address] [place] [phone] 10/10/2022 Hospital Encounter Surgery Lesly Celaya MD [address] [place], [place] [phone] 10/10/2022 Office Visit Surgery Lesly Celaya MD [address] [place] [address] Ninoska Flowers PA-C [address] [place] [address] 10/10/2022 Surgery Surgery Lesly Celaya, EXCISION, MASSES - MD back, abdomen, [address] right lower BL extremity [place], [place] [address]187 10/11/2022 Virtual Visit Cara Ruiz, Clari Banks, [facility] [address] [place] [address] 10/14/2022 Appointment Speech Therapy Anabel Chew, CONCRETE BOOM PUMP OPERATOR [address] [address] 10/21/2022 Office Visit Pulmonology Obdulio Barrera MD [address] [address] 10/25/2022 PRE VISIT ENT Charo Burton MD Previsit [address] [place] [address]35 10/25/2022 Office Visit ENT Charo Burton MD [address] [place], [place] [address]70[address] 10/25/2022 Office Visit ENT Provider, 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 Cytology Laboratory Manager 10/28/2022 Appointment Speech Therapy Anabel Chew, CONCRETE BOOM PUMP OPERATOR [address] [phone] 11/17/2022 Appointment Speech Therapy Anabel Chew CONCRETE BOOM PUMP OPERATOR [address] [address] 12/23/2022 Office Visit Neurology Colby Yeung MD [address] [address]53005 Scheduled Procedures Name Priority Associated Diagnoses Date/Time EXCISION, MASS, TORSO Lipoma of skin and subcuta neous 10/10/2022 7:30 AM CELL INSPECTOR tissue documented as of this encounter Goals Goal Patient Goal Associated Recent Patient-Stated? Author Type Problems Progress Attend Speciality Care Plan Establish Care 50% No Ahe rn, Appointments (08/29/2022 Mago Murray, (CASTING MACHINE ADJUSTER, 3:24 PM CDT) [facility] Psychiatry, Counseling, and the Sleep Clinic) Note: Formatting of this note is differe nt from the original. Barriers: Appointment availability. Strengths: Recognition of need, Care Topstitcher Zigzag rdination involvement. Patient expressed understanding of goal: [...] on: 08/16/2022 9:45 AM Lesly Celaya MD [facility] [place] To address painful lumps in my abdomin [...] documented as of this encounter Care Teams Corn Miller Relationship Specialty Start Date End Date Aydee Burton, PCP - General Nurse Practitioner - 05/17/21 CLINIC MANAGER FOUNDRY MANAGER Family [address] [place], [place] [phone] Aydee Burton, Assigned PCP 04/28/21 CLINIC MANAGER FOUNDRY MANAGER [address] [place], [place] [phone] Louisa Hood, Assigned Neuroscience 07/11/21 CLINIC MANAGER FOUNDRY MANAGER Provider [address] [place], [place] [phone] [place], Assigned Sleep 08/01/21 Angel Turcios, Provider [address] [place], [place] [phone] Lesly Celaya MD Assigned Surgical 09/05/21 [address] [place] [address] Tawana Patel MA [facility] 09/30/21 Worker Ramses Mcpherson Assigned OBGYN 11/07/21 MD Onesimo Provider [address] [place] [address] Obdulio Barrera MD Critical Care 01/24/22 [address] [facility] [address] [place], [place] [phone] Obdulio Barrera, Assigned Pulmonology 02/06/22 MD Provider [address] [facility] [address] [place], [place] [address] Lesvia Stanley, EP Cardiac Rehabilitation 03/03/22 03/03/23 [facility] Therapist [address] [place] [place] [phone] Marilia Deluna, PhD Assigned Behavioral 02/20/22 [address] [facility] [place] [address] Niyah Decker, [facility] Pharmacist Pharmacist 03/07/[address] [place] [address] [address] [place], [place] [phone] Lesvia Stanley, GHADA Cardiac Rehabilitation 03/17/22 03/17/23 [facility] Therapist [address] [place] [address] Delia Avila, Pharmacist Pharmacist 06/07/22 [facility] [address] [place] [address] Mago Swift, [facility] Lead Campus Receptionist Echocardiograph Technician - 08/05/21 Clinical Niyah Decker, [facility] Assigned MTM 06/25/22 07/29/[address] [place] [address] 812 [place] [address] documented as of this encounter
--- OUTSIDE RECORDS SUMMARY | 2022-09-21 04:00 | XMS_ITS | Encounter Summary ---
:1980 Author Organization [employer] Address [address] [place] [address] Care Team Providers Name Role Phone Aydee Burton COPY MACHINE OPERATOR ENGINE HEAD REPAIRER Primary Care Provider Aydee Burton APRN ENGINE HEAD REPAIRER Unavailable [phone] Louisa Hood COPY MACHINE OPERATOR ENGINE HEAD REPAIRER Unavailable [phone] Angel Hannah MD Unavailable Lesly Celaya MD Unavailable Tawana Patel MA Unavailable Unavailable Ramses Mcpherson MD Unavailable Obdulio Barrera MD Unavailable [phone] Obdulio Barrera MD Unavailable [phone] Lesvia Stanley Unavailable Marilia Deluna PhD Unavailable Niyah Decker [facility] Unavailable Lesvia Stanley Unavailable Delia Avila [facility] Unavailable [phone] [facility] Unavailable Niyah Decker [facility] Unavailable Leela Jarvis [facility] Unavailable Niyah Decker [facility] Unavailable Encounter Details Date Type Department Care Team Description 07/05/2022 [facility] APRN [facility] [address] [facility] [address] [address] [address] [place] [address] [place], [place] [phone] (Wo rk) Social History Tobacco Use Types [...] How often do you attend sabianist or adventist services? Never 08/05/2021 Do you belong to [...] at Date Recorded Female 11/09/2021 7:53 PM GROUP THERAPY COUNSELOR COVID-19 Exposure Response Date Recorded In the last 10 days, have you been in contact with No / Unsu re 07/08/2022 6:34 PM CDT someone who was confirmed or suspected to have Coronavirus/COVID-19? documented as of this encounter Miscellaneous Notes Telephone Encounter - Ciara Montejo RN - 07/08/2022 10:21 AM CDT Refill approved per [facility] refill protocol. Ciara Mg RN [facility] Triage documented in this encounter Plan of Treatment Upcoming Encounters Date Type Specialty Care Team Description 09/26/2022 Appointment Speech Therapy Obdulio Barrera MD [address] [facility] [address] [place], [place] [phone] Anabel Chew, PETAL SHAPER HAND [facility] [address] [facility] [address] [place], [place] [address] 09/27/2022 Therapy Visit Physical Therapy Luisana Watkins, PT [address] [place] [address] 09/29/2022 Virtual Visit Pain & Palliative Marilia Deluna, [facility] PhD [address] [place], [place] [address] 09/30/2022 Office Visit Family Practice Aydee Burton, COPY MACHINE OPERATOR ENGINE HEAD REPAIRER [address] [place], [place] [phone] 10/03/2022 Therapy Visit Physical Therapy Una Reardon, PT [address] [place] [phone] 10/10/2022 Hospital Encounter Surgery Lesly Celaya MD [address] [place], [place] [address] 10/10/2022 Office Visit Surgery Lesly Celaya MD [address] [place], [place] [address] Ninoska Flowers, PA-C [address] [place], [place] [address] 10/10/2022 Surgery Surgery Lesly Celaya, EXCISION, MASSES - MD back, abdomen, [address] extremity [place], [place] [phone] 10/11/2022 Virtual Visit Pharm Bryce Ruiz, Clari Banks, [address] [address] 10/14/2022 Appointment Speech Therapy Anabel Chew, PETAL SHAPER HAND [address] [address] 10/21/2022 Office Visit Pulmonology Obdulio Barrera MD [address] [place] [address] 10/25/2022 PRE VISIT ENT Charo Burton MD Previsit [address] [place] [phone] 10/25/2022 Office Visit Charo Carter MD [address] [place] [address] 10/25/2022 Office Visit ENT Provider, 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 Rework Operator 10/28/2022 Appointment Speech Therapy Anabel Chew, PETAL SHAPER HAND [address] [address] 11/17/2022 Appointment Speech Therapy Anabel Chew, PETAL SHAPER HAND [address] [place] [address] 12/23/2022 Office Visit Neurology Colby Yeung MD [address] [place] [address] Scheduled Procedures Name Priority Associated Diagnoses Date/Time EXCISION, MASS, TORSO Lipoma of skin and subcuta neous 10/10/2022 7:30 AM GROUP THERAPY COUNSELOR tissue documented as of this encounter Goals Goal Patient Goal Associated Recent Patient-Stated? Author Type Problems Progress Attend Speciality Care Plan Establish Care 50% No Karene rn, Appointments (08/29/2022 Mago Murray, (SYSTEM PROGRAMMER, 3:24 PM CDT) [facility] Psychiatry, Counseling, and the Sleep Clinic) Note: Formatting of this note is differe nt from the original. Barriers: Appointment availability. Strengths: Recognition of need, Care Mill Supervisor rdination involvement. Patient expressed understanding of [...] 08/16/2022 9:45 AM Lesly Celaya MD [facility] [place] To address painful lumps in my abdomin [...] go to PT for neck and back nvaeen n. 4. I will schedule a preoperative [...] documented as of this encounter Care Teams Tunnel Kiln Repairer Relationship Specialty Start Date End Date Aydee Burton, PCP - General Nurse Practitioner - 05/17/21 COPY MACHINE OPERATOR ENGINE HEAD REPAIRER Family [address] [place] [phone] Aydee Burton, Assigned PCP 04/28/21 COPY MACHINE OPERATOR [address] 906[address] Louisa Hood, Assigned Neuroscience 07/11/21 COPY MACHINE OPERATOR ENGINE HEAD REPAIRER Provider [address] [place] [phone] [place], Assigned Sleep 08/01/21 Angel Turcios, Provider [address] [place] [address] Lesly Celaya MD Assigned Surgical 09/05/21 [address] [facility] Provider [place], [place] [address] Tawana Patel MA [facility] 09/30/21 Worker Ramses Mcpherson Assigned OBGYN 11/07/21 MD Onesimo Provider [address] [place] [address] Obdulio Barrera MD Critical Care 01/24/[address] [place] [address] 276 [place], [place] [address] Obdulio Barrera, Assigned Pulmonology 02/06/22 MD Provider [address] [place] [address] 276 [place], [place] [address]425 Lesvia Stanley, GHADA Cardiac Rehabilitation 03/03/22 03/03/23 [facility] Therapist [address] [phone] Marilia Deluna, PhD Assigned Behavioral 02/20/22 [address] [facility] [place] [address] Niyah Decker, [facility] Pharmacist Pharmacist 03/07/[address] [place] [address] 8[address] [place], [place] [phone] Lesvia Stanley, GHADA Cardiac Rehabilitation 03/17/22 03/17/23 [facility] Therapist [address] [phone] Delia Avila, Pharmacist Pharmacist 06/07/22 [facility] [address] [place], [place] [address] Mago Swift, [facility] Lead Warehouse Record Clerk Deburring Machine Operator - 08/05/21 Clinical Niyah Decker, [facility] Assigned MTM 06/25/22 07/29/22 420 [facility] [address] Pharmacist [place], [place] [phone] Leela Jarvis [facility] Pharmacist 07/26/22 05/15/23 [address] [facility] [address] [place] [phone] Niyah Decker, [facility] Assigned MTM 08/10/22 420 [facility] [address] Pharmacist [place], [place] [phone] documented as of this encounter
--- OUTSIDE RECORDS SUMMARY | 2022-09-21 04:00 | XMS_ITS | Encounter Summary ---
:1980 Author Organization [facility] Address [address] [place] [address] Care Team Providers Name Role Phone Aydee Burton PROCESS DESIGN CHEMICAL ENGINEER ANESTHESIOLOGY TEACHER Primary Care Provider Aydee Burton APRN ANESTHESIOLOGY TEACHER Unavailable [phone] Louisa Hood PROCESS DESIGN CHEMICAL ENGINEER ANESTHESIOLOGY TEACHER Unavailable [phone] Angel Hannah MD Unavailable Lesly Celaya MD Unavailable Tawana Patel MA Unavailable Unavailable Ramses Mcpherson MD Unavailable [phone] Obdulio Barrera MD Unavailable [phone] Obdulio Barrera MD Unavailable [phone] Lesvia Stanley Unavailable Marilia Deluna PhD Unavailable Niyah Decker [facility] Unavailable Lesvia Stanley Unavailable Delia Avila [facility] Unavailable [phone] JamisonMago [facility] Unavailable Niyah Decker [facility] Unavailable Reason for Visit Rehab Therapy Physical Therapy (Routine: Next available opening) - Pending Review Specialty Diagnoses / Procedures Referred By Contact Refer red To Contact Diagnoses Tension headache Cervicogenic headache Cervicalgia Colby Yeugn MD [address] [address] Referral ID Status Reason Start Date Expiration Date Visits V isits Requested Authorized [id number] Pending 06/30/2022 06/30/2023 1 1 Review Encounter Details Date Type Department Care Team Description 07/11/2022 Therapy Visit [facility] Bennett Yeung MD [address] [address] Tension headache; Rehabilitation Services Una Reardon, PT [address] [place] [address] Cervicogenic headache; [place] [facility] Cervica lgia; [facility] Neck pain [address] [facility] [address] [place] [address] Social History Tobacco Use Types [...] How often do you attend tenriism or sabianist services? Never 08/05/2021 Do you [...] place to sleep or slept in a detention (including now)? Sex Assigned at Date Recorded Female 11/09/2021 7:53 PM [employer] COVID-19 Exposure Response Date Recorded In the last 10 days, have you been in contact with No / Unsu re 07/11/2022 12:53 PM CDT someone who was confirmed or suspected to have Coronavirus/COVID-19? documented as of this encounter Progress Notes Una Reardon, PT - 07/12/2022 8:07 AM CDT Images from the original note were not included. [facility] OUTPATIENT Physical Therapy ORTHOPEDIC EVALUATION PLAN OF TREATMENT FOR OUTPATIENT REHABILITATION (COMPLETE FOR INITIAL CLAIMS ONLY) Patient's Last Name, First Name, M.I. Date of : 1980 Marta Hill A Provider???s Name: [facility] Start of Care Date: 07/11/22 Onset Date: 06/30/22 (MD order) Type: _X__PT ___OT Medical Diagnosis: Encounter Diagnoses Name Primary? Tension headache Cervicogenic headache Cervicalgia Neck pain Treatment Diagnosis: Neck Pain/Headaches Goals: 07/12/22 0500 [address] Part Goals listed below are for Neck/Headahces Goal #1 Goal #1 sleeping Previous Functional Level No restrictions Current Functional Level 3-5 hours without sleep per night STG Target Performance 2-3 hours without sleep per night Rationale to establish restorative sleep pattern Due Date 08/09/22 LTG Target Performance 1-2 hours without sleep per night Rationale to establish restorative sleep pattern Due Date 09/06/22 Therapy Frequency: 1x/week Predicted Duration of Therapy Intervention: 8 weeks CALLIE CARR, PT I CERTIFY THE NEED FOR THESE SERVICES FURNISHED UNDER THIS PLAN OF TREATMENT AND WHILE UNDER MY CARE (Physician attestation of this document indicates review and certification of the therapy plan). Certification Date From: 07/11/22 Certification Date To: 09/05/22 Referring Provider: Colby Carbajal * Initial Assessment See Epic Evaluation SOC Date: 07/11/22 Associated attestation - Colby Yeung MD - 07/12/2022 8:28 AM CDT Physician Attestation I agree with the information in this note. MD Callie Iyer-Una Carr, PT - 07/11/2022 1:10 PM CDT Physical Therapy Initial Evaluation Subjective: The history is provided by the patient. No print and pattern designer was used. Therapist Generated HPI Evaluation Problem details: The patient reports to therapy with a chief complaint of neck, shoulder and headahce pain. She reports onset of pain 10 years ago that ebs and flows throughout the years. She reports that she has tried numerous things including injections, botox, medications, PT in the past with overall minimal change in symptoms. She reports that she feels hopeless about her pain sometimes and feelsbroken She reports difficulty with work tasks, home care and self care tasks due to her significant pain. December of 2020 fell at work and landed on her left arm and thinks that this contributes to her pain. Also reports a hx of L shoulder pain where she fell and landed on the arm. . Type of problem: Cervical spine and thoracic spine. This is a chronic condition. Condition occurred with: Insidious onset. Patient reports pain: Upper cervical spine, cervical left side and upper thoracic. Pain is described as aching, burning, sharp and shooting and is constant. Pain radiates to: Head, face, shoulder left and upper arm left. Pain is the same all the time. Since onset symptoms are unchanged. Associated symptoms: Headache, loss of motion/stiffness, loss of strength, fatigue, numbness and TMJ. Symptoms are exacerbated by carrying, looking up or down, stress, lying down, certain positions, change of position, driving, rotating head, lifting and sitting and relieved by heat. Special tests included: X-ray and MRI. Previous treatment includes physical therapy. There was mild improvement following previous treatment. Restrictions due to condition include: Working in normal job without restrictions. Barriers include: None as reported by patient. Patient Health History Marta Hill being seen for neck pain/shoulder/upper back and face. Problem began: 07/11/2012. Problem occurred: not sure Pain is reported as 2/10 on pain scale. Pertinent medical history includes: asthma, depression, history of fractures, mental illness, migraines/headaches, numbness/tingling and overweight. Red flags: Chest pain. Other medical allergies details: amoxiicillan . Surgeries include: Orthopedic surgery. Other surgery history details: left elbow, breast augmentation, sinus, lump removal, hysterextomy, tubal ligation . Current medications: Anti-depressants, anti-inflammatory, muscle relaxants, pain medication and sleep medication. 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 Primary job tasks include: Computer work, lifting/carrying, prolonged standing and repetitive tasks. Objective: System Cervical/Thoracic Evaluation AROM: AROM Cervical: Flexion: Min limited P+ Extension: Min limited stiff on L side Rotation: Left: mod limited Right: mod limited Side Bend: Left: mod limited P+ L side Right: Mod limited P+ L side Headaches: cervical Cervical Myotomes: C1-2 (Neck Flex): Left: 5 C3 (neck side bend): Left: 5 C4 (shrug): Left: 5 C5 (Deltoid): Left: 5- C6 (Biceps): Left: 5- C7 (Triceps): Left: 5- C8 (Thumb Ext): Left: 5 T1 (Intrinsics): Left: 5- Neural Tension: Left side: Ulnar and Median positive. Right side: Ulnar and Median positive. Cervical Dermatomes: normal Cervical Palpation: Tenderness present at Left: Sternocleidomstoid; Scalenes; Rhomboids; Upper Trap; Levator; Erector Spinae; Facet and Suboccipitals Cervical Stability/Joint Clearing: normal General ROS Trialed suboccipital release-increases TMJ pain Trialed cervical manual traction-increases neck soreness Trialed STM to L UT, mild improvement in symptoms. Assessment/Plan: Patient is a 42 year old female with cervical complaints. Patient has the following significant findings with corresponding treatment plan. Diagnosis 1: Neck Pain/Headaches Pain - hot/cold therapy, US, electric stimulation, mechanical traction, manual therapy and home program Decreased strength - therapeutic exercise and therapeutic activities Inflammation - cold therapy Impaired muscle performance - neuro re-education Decreased function - therapeutic activities Impaired posture - neuro re-education Therapy Evaluation Codes: 1) History comprised of: Personal factors that impact the plan of care: Anxiety, Coping style, Overall behavior pattern, Past/current experiences, Social history/culture, Time since onset of symptoms and Work status. Comorbidity factors that impact the plan of care are: Asthma, Depression, Mental illness, Migraines/headaches, Numbness/tingling and Overweight. Medications impacting care: Anti-depressant, Anti-inflammatory, Muscle relaxant, Pain and Sleep. 2) Examination of Body Systems comprised of: Body structures and functions that impact the plan of care: Cervical spine, Shoulder and Thoracic Spine. Activity limitations that impact the plan of care are: Bending, Cooking, Driving, Dressing, Grasping, Lifting, Reading/Computer work, Sitting, Squatting/kneeling, Stairs, Standing and Walking. 3) Clinical presentation characteristics are: Evolving/Changing. 4) Decision-Making Moderate complexity using standardized patient assessment instrument and/or measureable assessment of functional outcome. Cumulative Therapy Evaluation is: Moderate complexity. Previous and current functional limitations: (See Goal Flow Sheet for this information) Short term and exterminator helper termite goals: (See Goal Flow Sheet for this information) Communication ability: Patient appears to be able to clearly communicate and understand verbal and written communication and follow directions correctly. Treatment Explanation - The following has been discussed with the patient: RX ordered/plan of care Anticipated outcomes Possible risks and side effects This patient would benefit from PT intervention to resume normal activities. Rehab potential is good. Frequency: 1 X week, once daily Duration: for 8 weeks Discharge Plan: Achieve all LTG. Independent in home treatment program. Reach maximal therapeutic benefit. Please refer to the daily flowsheet for treatment today, total treatment time and time spent performing 1:1 timed codes. documented in this encounter Plan of Treatment Upcoming Encounters Date Type Specialty Care Team Description 09/26/2022 Appointment Speech Therapy Obdulio Barrera MD [address] [facility] [address] [place], [place] [address] Anabel Chew, TELEVISION REPORTER [facility] [address] [place], [place] [address] 09/27/2022 Therapy Visit Physical Therapy Luisana Watkins, PT [address] [place] [address] 09/29/2022 Virtual Visit Pain & Palliative Marilia Deluna, [facility] PhD [address] [place] [address] 09/30/2022 Office Visit Family Practice Aydee Burton, PROCESS DESIGN CHEMICAL ENGINEER ANESTHESIOLOGY TEACHER [address] [place] [phone] 10/03/2022 Therapy Visit Physical Therapy Una Reardon, PT [address] [place] [address] 10/10/2022 Hospital Encounter Surgery Lesly Celaya MD [address] [place], [place] [phone] 10/10/2022 Office Visit Surgery Lesly Celaya MD [address] [place], [place] [phone] Ninoska Flowers PA-C [address] [place], [place] [phone] 10/10/2022 Surgery Surgery Lesly Celaya, EXCISION, MASSES - MD back, abdomen, [address] extremity [place], [place] [address] 10/11/2022 Virtual Visit Clari Su, [facility] [address] [place] [address] 10/14/2022 Appointment Speech Therapy Anabel Chew, TELEVISION REPORTER [address] [phone] 10/21/2022 Office Visit Pulmonology Obdulio Barrera MD [address] [phone] 10/25/2022 PRE VISIT ENT Charo Burton MD Previsit [address] [place], [place] [address] 10/25/2022 Office Visit ENT Charo Burton MD [address] [place], [place] [address] 10/25/2022 Office Visit ENT Provider, 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 Loan Administrator 10/28/2022 Appointment Speech Therapy Anabel Chew, CELINE [address] [phone] 11/17/2022 Appointment Speech Therapy Anabel Chew SLP [address] [address] 12/23/2022 Office Visit Neurology Colby Yeung MD [address] [address] Scheduled Procedures Name Priority Associated Diagnoses Date/Time EXCISION, MASS, TORSO Lipoma of skin and subcuta neous 10/10/2022 7:30 AM FOOD P[employer]TER tissue documented as of this encounter Goals Goal Patient Goal Associated Recent Patient-Stated? Author Type Problems Progress Attend Speciality Care Plan Establish Care 50% Claudia Tee rn, Appointments (08/29/2022 Mago Murray, (PLC TECHNICIAN, 3:24 PM CDT) [facility] Psychiatry, Counseling, and the Sleep Clinic) Note: Formatting of this note is differe nt from the original. Barriers: Appointment availability. Strengths: Recognition of need, Care Wooden Boat Builder rdination involvement. Patient expressed understanding of goal: [...] on: 08/16/2022 9:45 AM Lesly Celaya MD [facility] To address painful lumps in my abdomin ( completed) 08/29/2022: Pt does not think she will g et cleared to have lumps removed due to breathing problems. 7. I will continue working with speech param rodriguez, appointment on 09/12/2022. 8. I will continue following up with ENT to address breathing problems. Updated by CHW on 08/29/2022 Patients pain will be Care Plan Chronic Pain is not 30% (07/05/2022 Mago Prieto well-managed. self-managed 3:14 PM CDT) Terri, [facility] Note: Formatting of this note [...] Diagnosis Comme nts WI MANUAL THERAPY, EA Routine 07/12/2022 8:06 AM CDT Ten maria eugenia headache 15 MIN Cervicogenic hea dache Cervicalgia Neck pain documented in this encounter Visit Diagnoses Diagnosis Tension headache Cervicogenic headache Headache Cervicalgia Neck pain Cervicalgia Lipoma of skin and subcutaneous tissue Lipoma of other skin and subcutaneous ti ssue documented in this encounter Additional Health Concerns Problem Noted Date Establish Care 07/05/2022 Chronic Pain is not self-managed 07/05/2022 Assessment Noted Time PHQ-9 Depression Total Score: 16 06/24/2022 9:31 AM CD T documented as of this encounter Care Teams Power Plant Superintendent Relationship Specialty Start Date End Date Aydee Burton, PCP - General Nurse Practitioner - 05/17/21 PROCESS DESIGN CHEMICAL ENGINEER ANESTHESIOLOGY TEACHER Family [address] [place], [place] [address] Aydee Burton, Assigned PCP 04/28/21 PROCESS DESIGN CHEMICAL ENGINEER ANESTHESIOLOGY TEACHER [address] [place] [id number] Louisa Hood, Assigned Neuroscience 07/11/21 PROCESS DESIGN CHEMICAL ENGINEER ANESTHESIOLOGY TEACHER Provider [address] [place], [place] [address] [place], Assigned Sleep 08/01/21 Angel Turcios, Provider [address] [facility] [address] [place] [address] Lesly Celaya MD Assigned Surgical 09/05/[address] Provider [place], [place] [phone] Tawana Patel MA [facility] 09/30/21 Worker Ramses Mcpherson Assigned OBGYN 11/07/21 MD Onesimo Provider [address] [place], [place] [phone] Obdulio Barrera MD Critical Care 01/24/[address] [place] [address] [address] [place], [place] [address] Obdulio Barrera, Assigned Pulmonology 02/06/22 MD Provider [address] [facility] [address] [place], [place] [phone] Lesvia Stanley, EP Cardiac Rehabilitation 03/03/22 03/03/23 [facility] Therapist [address] [place] [address] Marilia Deluna, PhD Assigned Behavioral 02/20/22 [address] [facility] [place] [address] Niyah Decker, [facility] Pharmacist Pharmacist 03/07/[address] [place] [address] [address] [place] [address] Lesvia Stanley, EP Cardiac Rehabilitation 03/17/22 03/17/23 [facility] Therapist [address] [address] Delia Avila, Pharmacist Pharmacist 06/07/22 [facility] [address] [place] [phone] Mago Swift [facility] Lead Periodicals Library Assistant Form Block Maker - 08/05/21 Clinical Niyah Decker, [facility] Assigned MTM 06/25/22 07/29/[address] [place] [address] [address] [place] [address] documented as of this encounter
--- OUTSIDE RECORDS SUMMARY | 2022-09-21 04:00 | XMS_ITS | Encounter Summary ---
:1980 Author Organization [facility] Address [address] [place] [address] Care Team Providers Name Role Phone Aydee Burton CHIEF METEOROLOGIST BALCONY WORKER Primary Care Provider Aydee Burton APRN BALCONY WORKER Unavailable [phone] Louisa Hood CHIEF METEOROLOGIST BALCONY WORKER Unavailable [phone] Angel Hannah MD Unavailable Lesly Celaya MD Unavailable Tawana Patel MA Unavailable Unavailable Ramses Mcpherson MD Unavailable [phone] Obdulio Barrera MD Unavailable [phone] Obdulio Barrera MD Unavailable [phone] Lesvia Stanley Unavailable Marilia Deluna PhD Unavailable Niyah Decker [facility] Unavailable Lesvia Stanley Unavailable Delia Avila [facility] Unavailable [phone] Mago Swift [facility] Unavailable Niyah Decker Vania [facility] Unavailable Reason for Visit Auth/Cert Specialty Diagnoses / Procedures Referred By Contact Refer red To Contact Gastroenterology Diagnoses Gastroesophageal reflux disease without esophagitis Nauseated Chronic cough Laryngitis Gastroesophageal reflux disease without esophagitis [K21.9] Nauseated [R11.0] Chronic cough [R05.3] Laryngitis [J04.0] Endoscopy Procedures UGI ENDOSCOPY DIAG W OR W/O BRUSH/WASH ESOPHAGOGASTRODUODENOSCOPY (EGD) (Fv) [address] [place] [address] Phone: Fax: Referral ID Status Reason Start Date Expiration Date Visits Requ ested Visits Authorized [id number] 1 1 Encounter Details Date Type Department Care Team Description 07/06/2022 Surgery [facility] Cherelle, ESOPHAGOGA STRODUODENOSCOPY (EGD) Endoscopy Tim Golden MD (Fv) with brushing using cytology [place] [facility] brush [address] [facility] [id number] [facility] [phone] [place], [place] [id number] Surgery Details Date/Time Status Location OR Service Patient Class Case Case Trauma Class Type Case? 07/06/22 1:00 Posted GI GI A Gastroenterology Outpatient PM Panel 1 Procedure LRB Anes Op Region Wound Class Commen ts ESOPHAGOGASTRODUODENOSCOPY Left Moderate Mouth II-Clean (EGD) (Fv) with brushing using Sedation Conta minated cytology brush Surgeon Surgeon Role Service Panel Tim Perez MD Primary Gastroenterology 1 Special Needs EGD prep sent mail/e-mail documented in this encounter Social History Tobacco Use Types Packs/Day Years [...] er 08/05/2021 How often do you attend congregational or uatsdin services? Never 08/05/2021 Do you belong to any clubs or organizations such as congregational N o 08/05/2021 groups, unions, fraternal or [...] at Date Recorded Female 11/09/2021 7:53 PM FILM PROCESSOR COVID-19 Exposure Response Date Recorded In the last 10 days, have you been in contact with No / Unsu re 07/06/2022 11:58 AM CDT someone who was confirmed or suspected to have Coronavirus/COVID-19? documented as of this encounter Last Filed Vital Signs Vital Sign Reading Time Taken Comments Blood Pressure 123/86 07/06/2022 1:30 PM CDT Pulse 94 07/06/2022 1:30 PM CDT Temperature 36.8 ??C (98.2 ??F) 07/06/2022 12:29 PM CDT Respiratory Rate 16 07/06/2022 1:30 PM CDT Oxygen Saturation 97% 07/06/2022 1:30 PM CDT Inhaled Oxygen Concentration - - Weight 92.5 kg (204 lb) 07/06/2022 12:29 PM CDT Height 165.1 cm (5' 5) 07/06/2022 12:29 PM CDT Body Mass Index 33.95 07/06/2022 12:29 PM CDT documented in this encounter Discharge Instructions Discharge InstructionsAnabel Deng RN - 07/06/2022 1:10 PM CDT The patient has received a copy of the Provation report the doctor has written and discharge instructions have been discussed with the patient and responsible adult. All questions were addressed and answered prior to patient discharge. documented in this encounter Medications at Time of Discharge Medication Sig Dispensed Refills Start Date End Date acetaminophen (TYLENOL) Take 500-1,000 mg by 0 500 MG tablet mouth every 6 hours as needed for mild pain albuterol (PROAIR Inhale 2 puffs into 18 g 2 HFA/PROVENTIL the lungs every 4 HFA/VENTOLIN [...] trapping, Shortness of dyspnea or wheezing breath budesonide-formoterol Inhale 2 puffs into 10.2 g [...] mouth daily capsuleIndications: Chronic cough, Epigastric pain QUEtiapine (SEROQUEL) Take 100 mg by mouth [...] 50 mouth daily mcg (2000 units) tablet clotrimazole (MYCELEX) Place 1 lozenge (10 70 lozenge 0 03/1308/26/2022 10 MG mg) inside cheek 5 lozengeIndications: times daily for 14 Thrush days Take for 7-14 days; use 2 days after symptoms resolve. ondansetron (ZOFRAN Take 1 tablet (4 mg) 20 tablet 0 202108/12/2022 ODT) 4 MG ODT by mouth every 8 tabIndications: S/P hours as needed for laparoscopic nausea hysterectomy ondansetron (ZOFRAN Take 1 tablet (4 mg) 20 tablet 0 202107/08/2022 ODT) 4 MG ODT by mouth every 8 tabIndications: S/P hours as needed for laparoscopic nausea hysterectomy pregabalin (LYRICA) 25 Take 1 capsule (25 60 capsule 0 06/2307/12/2022 MG capsuleIndications: mg) by mouth 2 times Neuropathic pain daily documented as of this encounter H&P Notes Tim Perez MD - 07/06/2022 12:14 PM CDT Pre-Endoscopy History and Physical Marta Hill Date of : 1980 Age: [age] year old Date of Procedure: 07/06/2022 Primary care provider: Aydee Burton Type of Endoscopy: Gastroscopy with possible biopsy, possible dilation Reason for Procedure: reflux Type of Anesthesia Anticipated: Conscious Sedation HPI: Marta is a 42 year old female who will be undergoing the above procedure. A history and physical has been performed. The patient's medications and allergies have been reviewed. The risks and benefits of the procedure and the sedation options and risks were discussed with thepatient. All questions were answered and informed consent was obtained. She denies a personal or family history of anesthesia complications or bleeding disorders. Patient Active Problem List Diagnosis ??? PTSD (post-traumatic stress disorder) ??? Breast implant status ??? Bilateral occipital neuralgia ??? Hepatic steatosis ??? SHAMEKA (generalized anxiety disorder) ??? Severe episode of recurrent major depressive disorder, without psychotic features (H) ??? Bilateral carpal tunnel syndrome ??? Cervicogenic headache ??? Left elbow fracture ??? Normal delivery ??? Supervision of with grand multiparity ??? SOB (shortness of breath) ??? Chest tightness Past Medical History: Diagnosis Date ??? Arthritis [...] teen years sinus for bloody noses ??? EXCISE MASS BACK N/A 10/12/2021 Procedure: EXCISION MULTIPLE LIPOMAS - bilateral legs, arms and trunk; Surgeon: Lesly Celaya MD; Location: [facility] OR ??? GENITOURINARY SURGERY Tubal ligation and ablasion ??? APARTMENT COORDINATOR SURGERY not sure tubal ligation and ablasion ? ? HEAD & NECK SURGERY Sinus ??? LAPAROSCOPIC HYSTERECTOMY TOTAL Bilateral 12/28/2021 Procedure: TOTAL LAPAROSCOPIC HYSTERECTOMY WITH BILATERAL SALPINGECTOMY; Surgeon: Ramses Mcpherson MD; Location: [facility] OR ??? ORTHOPEDIC SURGERY 2020 radial head fracture 3 screws, left elbow ??? RADIOFREQUENCY ABLATION, UTERINE 2018 Social History Tobacco Use ??? Smoking status: Never Smoker ??? Smokeless tobacco: Never Used Substance Use Topics ??? Alcohol use: Not Currently Comment: None for 1.5 personal choice. Family hx. Family History Problem Relation Age of Onset [...] ??? Colon Cancer No family hx of Prior to Admission medications Medication Sig Start Date End Date Taking? Authorizing Provider acetaminophen (TYLENOL) 500 MG tablet Take 500-1,000 mg by mouth every 6 hours as needed for mild pain Reported, Patient albuterol (PROAIR HFA/PROVENTIL HFA/VENTOLIN HFA) 108 (90 Base) MCG/ACT inhaler Inhale 2 puffs into the lungs every 4 hours as needed for shortness of breath / dyspnea or wheezing 02/09/22 Aydee Burton APRN CNP albuterol (PROVENTIL) (2.5 MG/3ML) 0.083% neb solution Take 1 vial (2.5 mg) by nebulization every 6 hours as needed for shortness of breath / dyspnea or wheezing 01/19/22 Aydee Burton APRN CNP budesonide-formoterol (SYMBICORT) 160-4.5 MCG/ACT Inhaler Inhale 2 puffs into the lungs 2 times daily 01/19/22 Aydee Burton APRN CNP buPROPion (WELLBUTRIN XL) 300 MG 24 hr tablet Take 1 tablet (300 mg) by mouth daily Patient taking differently: Take 300 mg by mouth every morning 07/08/21 Louisa Hood APRN CNP DULoxetine (CYMBALTA) 60 MG capsule Take 60 mg by mouth At Bedtime 2 tablets - 120mg total Reported,Patient fluticasone (FLONASE) 50 MCG/ACT nasal spray Use 2 spray(s) in each nostril once daily 04/05/22 Aydee Burton APRN CNP ibuprofen (ADVIL/MOTRIN) 200 MG capsule Take 200 mg by mouth daily 400mg - Daily for pain Reported, Patient ipratropium - albuterol 0.5 mg/2.5 mg/3 mL (DUONEB) 0.5-2.5 (3) MG/3ML neb solution Take 1 vial (3 mLs) by nebulization every 4 hours as needed for shortness of breath / dyspnea or wheezing 02/03/22 Aydee Burton APRN CNP lamoTRIgine (LAMICTAL) 100 MG tablet Take 1 tablet (100 mg) by mouth daily And a 200mg Total dose ep509zc daily 02/13/22 Aydee Burton APRN CNP lamoTRIgine (LAMICTAL) 200 MG tablet Take 1 tablet (200 mg) by mouth daily With a 100 mg to total 300mg daily 02/13/22 Aydee Burton APRN CNP methocarbamol (ROBAXIN) 500 MG tablet Take 1-1.5 tablets (500-750 mg) by mouth 3 times daily as needed for muscle spasms 05/14/22 Aydee Burton APRN CNP naproxen sodium 220 MG capsule Take 220 mg by mouth daily 1-2 tablet daily Reported, Patient omeprazole (PRILOSEC) [address] capsule Take 1 capsule (20 mg) by mouth daily Patient taking differently: Take 20 mg by mouth daily Take 1 cap by mouth 2 times daily 06/24/22 Aydee Burton APRN CNP ondansetron (ZOFRAN ODT) 4 MG ODT tab Take 1 tablet (4 mg) by mouth every 8 hours as needed for nausea 04/05/22 Aydee Burton APRN CNP pregabalin (LYRICA) 25 MG capsule Take 1 capsule (25 mg) by mouth 2 times daily 06/23/22 Madalyn Ponce MD QUEtiapine (SEROQUEL) 100 MG tablet Take 100 mg by mouth as needed 01/14/22 Aydee Burton APRN CNP QUEtiapine (SEROQUEL) 200 MG tablet Take 200 mg by mouth At Bedtime Reported, Patient tiotropium (SPIRIVA) 18 MCG inhaled capsule Inhale 1 capsule (18 mcg) into the lungs daily 06/06/22 Obdulio Barrera MD vitamin D3 (CHOLECALCIFEROL) 50 mcg (2000 units) tablet Take 1 tablet by mouth daily Reported, Patient Allergies Allergen Reactions ??? Amoxicillin Rash REVIEW OF SYSTEMS: 5 point ROS negative except as noted above in HPI, including Gen., Resp., CV, GI & system review. PHYSICAL EXAM: [facility] 12/11/2021 (Exact Date) Estimated body mass index is 33.97 kg/m?? as calculated from the following: Height as of 06/30/22: 1.651 m (5' 5). Weight as of 06/30/22: 92.6 kg (204 lb 2.3 oz). GENERAL APPEARANCE: alert, and oriented MENTAL STATUS: alert AIRWAY EXAM: Mallampatti Class I (visualization of the soft palate, fauces, uvula, anterior and posterior pillars) RESP: lungs clear to auscultation - no rales, rhonchi or wheezes CV: regular rates and rhythm DIAGNOSTICS: Not indicated IMPRESSION ASA Class 2 - Mild systemic disease PLAN: Plan for Gastroscopy with possible biopsy, possible dilation. We discussed the risks, benefits and alternatives and the patient wished to proceed. The above has been forwarded to the consulting provider. Signed Electronically by: Tim Perez MD July 06, 2022 documented in this encounter Miscellaneous Notes Result Encounter Note - Tim Perez MD - 07/06/2022 1:43 PM CDT Pt informed of result and rx ordered. documented in this encounter Plan of Treatment Upcoming Encounters Date Type Specialty Care Team Description 09/26/2022 Appointment Speech Therapy Obdulio Barrera MD [address] [facility] [address] [place], [place] [phone] Anabel Chew, CENTRALIZED TRAFFIC CONTROL OPERATOR [address] [place], [place] [address] 09/27/2022 Therapy Visit Physical Therapy Luisana Watkins, PT [address] [place] [address] 09/29/2022 Virtual Visit Pain & Palliative Marilia Deluna, [facility] PhD [address] [place], [place] [address] 09/30/2022 Office Visit Family Practice Aydee Burton, CHIEF METEOROLOGIST BALCONY WORKER [address] [place], [place] [phone] 10/03/2022 Therapy Visit Physical Therapy Una Reardon, PT [address] [place] [phone] 10/10/2022 Hospital Encounter Surgery Lesly Celaya MD [address] [place], [place] [address] 10/10/2022 Office Visit Surgery Lesly Celaya MD [address] [place], [place] [phone] Ninoska Flowers, PA-C [address] [place], [place] [phone] 10/10/2022 Surgery Surgery Lesly Celaya, EXCISION, MASSES - MD back, abdomen, [address] [place] [address] 10/11/2022 Virtual Visit Pharm Clari Stoll, [address] [phone] 10/14/2022 Appointment Speech Therapy Anabel Chew, CENTRALIZED TRAFFIC CONTROL OPERATOR [address] [address] 10/21/2022 Office Visit Pulmonology Obdulio Barrera MD [address] [place] [address] [address] [place], [place] [phone] 10/25/2022 PRE VISIT ENT Charo Burton MD Previsit [address] [place] [id number] 10/25/2022 Office Visit Charo Carter MD [address] [place] [address] 10/25/2022 Office Visit ENT Provider, 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 Head Coach 10/28/2022 Appointment Speech Therapy Anabel Chew, CENTRALIZED TRAFFIC CONTROL OPERATOR [address] [address] 11/17/2022 Appointment Speech Therapy Anabel Chew, CENTRALIZED TRAFFIC CONTROL OPERATOR [address] [place] [address] 12/23/2022 Office Visit Neurology Colby Yeung MD [address] [place] [address] Scheduled Procedures Name Priority Associated Diagnoses Date/Time EXCISION, MASS, TORSO Lipoma of skin and subcuta neous 10/10/2022 7:30 AM FILM PROCESSOR tissue documented as of this encounter Procedures Procedure Name Priority Date/Time Associated Diagnosis Comme nts FUNGAL OR YEAST CULTURE Routine 07/06/2022 Resu lts for ROUTINE 12:53 PM CDT this procedure are in the results section. ESOPHAGOGASTRODUODENOSCOPY 07/06/2022 Gastroesophage al (EGD) 12:34 PM CDT reflux disease without esophagi tis Nauseated Chronic cough Laryngitis Special Needs EGD prep sent mail/e-mail , UPPER GI ENDOSCOPY Routine 07/06/2022 12:31 PM CDT documented in this encounter Results (ABNORMAL) Fungal or Yeast Culture Routine (07/06/2022 [...] Code Phon e Number [facility] [place] [phone] Diag. Lab [address] [facility], Room D297 UPPER GI ENDOSCOPY (07/06/2022 12:31 PM CDT) Component Value Ref Test Analysis Performed At [facility] Range Method Time Signature Upper GI [facility] RADIOLOGY Endoscopy RESULTS Patient Name: Marta Hill ? Procedure Date: 07/06 12:31 PM ? Account Num ericka: [id number] Date of : 1980 ?Admit Type: Out patient Age: 42 ? Gender: Female Attending MD: TIM FRANCISCO MD ?? Total Sedation Time: 4_minutes continuous bedside 1:1 Instrument Name: 207- Gastroscope ? Procedure: ?Upper GI endoscopy Indications: ?Chronic cough Providers: ?TIM PEREZ MD (Doc [facility]) Referring MD: ? Medicines: ?Midazolam 2 [...] # [id number], [place] # ?207, SN # [id number] was introduced through the mouth, ?and advanced [...] Procedure Code(s): ? --- Professional --- ? 42175, Esophagogastroduodenoscopy, flexible, transora l; diagnostic, ? including collection of specimen(s) by brushing or wa shing, when ? performed (separate procedure) CPT copyright 2020 [employer]. All rights reserved. The codes documented in this report are prelimin julian and upon nurse infection control review may be revised to meet current compliance requirements. Electronically signed by Tim Perez MD TIM PEREZ MD 07/06/2022 12:56:43 PM I was physically present for the entire viewing portion of t he exam. TIM PEREZ MD Number of Addenda: 0 Note Initiated On: 07/06/2022 12:31 PM MRN: ?[id number] Procedure Date: ? 07/06/2022 12:31:55 PM Total Procedure Duration: 0 hours 3 minutes 21 seconds Estimated Blood Loss: ? Scope In: 12:45:37 PM Scope Out: 12:48:58 PM Specimen (Source) Anatomical Collection Method Collection Time Re ceived Time Location / / Volume Laterality 07/06/2022 12:31 PM CDT Tim Perez MD PROCEDURES Performing Organization Address City/State/ZIP Code Phon e Number RADIOLOGY RESULTS documented in this encounter Visit Diagnoses Diagnosis Gastroesophageal reflux disease without esophagitis Esophageal reflux Nauseated Nausea alone Chronic cough Cough Laryngitis Acute laryngitis, without mention of obs truction Lipoma of skin and subcutaneous tissue Lipoma of other skin and subcutaneous ti ssue documented in this encounter Administered Medications Inactive Administered Medications - up to 3 most recent administrations Medication Order MAR Action Action Date Dose Rate Site 0.9% sodium chloride BOLUS Intravenous, 500 mL, ONCE PRN, at 500 mL/hr, Administe r over 1 Hours, other, hypotension, Starting on Mon07/06/22 at 1212, For 1 do se, Intra-procedure atropine injection 1 mg 1 mg, Intravenous, ONCE PRN, other, Srinivas ycardia, Starting on Mon07/06/22 at 1212, For 1 dose, Intra-procedure benzocaine 20% (HURRICAINE/TOPEX) 20 % Given 07/06/2022 12:46 PM CDT 0.5 mLs spray 0.5 mL 0.5 mL (1 spray), Mouth/Throat, ONCE PRN, moderate pain, Starting on Mon07/06/22 at 1212, For 1 dose, [place] throat with 1 spray 5 minutes prior to procedure., Intra-procedure diphenhydrAMINE (BENADRYL) injection 25- 50 mg 25-50 mg, Intravenous, ONCE PRN, other, for sedations, dose per provider direction., Administer over 1-2 Minutes, Starting on W ed 07/06/22 at 1212, For 1 dose, Intra-procedure EPINEPHrine (Anaphylaxis) (ADRENALIN) in jection (vial) 0.1 mg 0.1 mg, Submucosal, ONCE PRN, bleeding, Starting on d 07/06/22 at 1212, For 1 dose, RN to dilute 1 mL (1 mg) of EPINEP Hrine with 9 mL of 0.9% sodium chloride to equal a 0.1 mg/mL concentration. Inject 1 mL (0.1 mg) into submucosa via a sclerotherapy injection needle. Not for direct undilut ed intravenous injection (1mg/ml = 1:1000). Protect from light., Intra-procedur e fentaNYL (PF) (SUBLIMAZE) injection 50-100 Given 07/06 12:44 PM CDT 100 mcg mcg 50-100 mcg, Intravenous, EVERY 5 MIN PRN, severe pain, If inadequate response may repeat every 3 min PRN severe pain; when verbally requested by provider., Starting on Mon07/06/22 at 1212, Doses can be exceeded under direct oversight of patient by physician., Intra-procedure flumazenil (ROMAZICON) injection 0.2 mg 0.2 mg, Intravenous, EVERY 1 MIN PRN, benzodiazepine r eversal, If inadequate response after 45 seconds, may repeat 0. 2 mg IV every 1 minute PRN over sedation., Administer over 1 Minutes, Starting on W ed 07/06/22 at 1212, Give over 15 seconds. Maximum total dose of 1 mg. Continue mon itoring until discharge criteria met for a minimum of 2 hours. Irritant. Use with caution in kareen ents on benzodiazepine therapy., Intra-procedure flumazenil (ROMAZICON) injection 0.2 mg 0.2 mg, Intravenous, EVERY 1 MIN PRN, benzodiazepine r eversal, over sedation, Administer over 1 Minutes, Starting on W ed 07/06/22 at 1310, For 12 hours, Give over 15 seconds. If inadequate response after 45 seconds, may repeat up to a MAX total dose of 1 mg. Continue monitoring until discharge criteria are met for a minimum of 2 hours Irritant. Use with caution in patients on brock odiazepine therapy. glucagon injection 0.5 mg 0.5 mg, Intravenous, ONCE PRN, other, gi motility, Starting on 07/06/22 at 1212, For 1 dose, Intra-procedure lidocaine (LMX4) kit Topical, EVERY 1 HOUR PRN, pain, with VAD insertion, S tarting on Mon07/06/22 at 1226, Apply at least 30 minutes prior to VAD insertion in divided doses as needed for size of site for insertion. MAX Dose: 2.5 g (?? of 5 g tube) Do NOT give if patient has a history of allergy to any local anesthetic or any camila product. Do NOT use both lidocaine intradermal/subcu taneous injection and the lidocaine cream on the same site., Pre-procedure lidocaine 1 % 0.1-1 mL 0.1-1 mL, Other, EVERY 1 HOUR PRN, mild pain with VAD insertion, Starting on Mon07/06/22 at 1226, MAX dose 1 mL subcutane ous OR intradermal along the side of the vein in divided doses as needed for VAD insertion. Do NOT give if patient has a history of allergy to any local anesthet ic or any camila product. Do NOT use both lidocaine intradermal/subcutaneous injec tion and the lidocaine cream on the same site., Pre-procedure midazolam (VERSED) injection 0.5-2 mg Given 07/06/2022 12:44 PM CDT 2 mg 0.5-2 mg, Intravenous, EVERY 4 MIN PRN, sedation, If inadequate response may repeat every 4 minutes PRN sedation until desired response; when verbally requested by provider., Starting on Mon07/06/22 at 1212, Doses can be exceeded under direct oversight of patient by physician. This drug may cause significant respiratory depression. Monitor respiratory status and vital signs carefully for 1 hour after each dose., Intra-procedure naloxone (NARCAN) injection 0.2 mg 0.2 mg, Intravenous, EVERY 2 MIN PRN, op ioid reversal, Starting on Mon07/06/22 at 1212, Administer intravenous route when available and notify provider when administered. For unintended sedation or respiratory depression if all of the below criteria are met: ~ respiratory rate LES S than or EQUAL to 8. ~SaO2 less than 92% and or/end-tidal CO2 is greater than 50. ~ the patient is receiving an opioid, has unintended sedations assessed as RASS (-3), and is cur rently not on mechanical ventilation. RASS scale moderate (-3) is movement or eye opening to voice but no eye contact. Patient Monitoring Once the patient has demonstrated a response to the naloxone, continue to monitor respiratory rate, depth, oxygen saturation and end-tidal CO2 (if available) every 15 mi nutes x 2, then every 30 minutes x 2, then every 1 hour x 1 after each naloxone dose. Consider tr ansfer to ICU if patient respiratory parameters have not improved after 4 naloxone doses., Intra-procedure naloxone (NARCAN) injection 0.2 mg 0.2 mg, Intramuscular, EVERY 2 MIN PRN, opioid reversal, Starting on Mon07/06/22 at 1212, Administer intramuscular if an int ravenous route is not available and notify provider when administered. For unintend ed sedation or respiratory depression if all of the below criteria are met: ~ respiratory rate LESS than or EQUAL to 8. ~SaO2 less than 92% and or/end-tidal CO2 is greater th an 50. ~ the patient is receiving an opioid, has unintended sedations assessed as RASS (-3), and is currently not on mechanical ventilation. RASS scale moderate (-3) is movement or eye opening to voice but no eye contact. Patient Monitoring Once the patient has demonstrated a response to the naloxone, continue to m onitor respiratory rate, depth, oxygen saturation and end-tidal CO2 (if availab le) every 15 minutes x 2, then every 30 minutes x 2, then every 1 hour x 1 after each naloxone dose. Consider transfer to ICU if patient respiratory parameters have not improved after 4 naloxone doses., Intra-procedure naloxone (NARCAN) injection 0.4 mg 0.4 mg, Intravenous, EVERY 2 MIN PRN, op ioid reversal, Starting on Mon07/06/22 at 1212, Administer intravenous route when available and notify provider when administered. For unintended sedation or respiratory depression if all of the below criteria are met: ~ respiratory rate LES S than or EQUAL to 8. ~ SaO2 less than 92% and or/end-tidal CO2 is greater than 50. ~ the patient is receiving an opioid, has unintended sedation assessed as RASS (-4 ) or (-5) and patient is currently not on mechanical ventilation. RASS scale (-4) is deep sedation with no response to voice but movement or eye opening to physical stimulation. R ASS scale (-5) is unarousable. Patient Monitoring Once the patient has demonstrated a response to the naloxone, continue to monitor respiratory rate, depth, oxygen saturation and end-tidal CO2 (if available) every 15 mi nutes x 2, then every 30 minutes x 2, then every 1 hour x 1 after each naloxone dose. Consider tr ansfer to ICU if patient respiratory parameters have not improved after 4 naloxone doses., Intra-procedure naloxone (NARCAN) injection 0.4 mg 0.4 mg, Intramuscular, EVERY 2 MIN PRN, opioid reversal, Starting on Mon07/06/22 at 1212, Administer intramuscular if an int ravenous route is not available and notify provider when administered. For unintend ed sedation or respiratory depression if all of the below criteria are met: ~ res piratory rate LESS than or EQUAL to 8. ~ SaO2 less than 92% and or/end-tidal CO2 is greater magnus n 50. ~ the patient is receiving an opioid, has unintended sedation assessed as RASS (-4) or (-5) and patient is currently not on mechanical ventilation. RA SS scale (-4) is deep sedation with no response to voice but movement or eye opening to physical stimulation. RASS scale (-5) is unarousa ble. Patient Monitoring Once the patient has demonstrated a response to the nalox one, continue to monitor respiratory rate, depth, oxygen saturation and end-tidal CO2 (if availab le) every 15 minutes x 2, then every 30 minutes x 2, then every 1 hour x 1 after each naloxone dose. Consider transfer to ICU if patient respiratory parameters have not improved after 4 naloxone doses., Intra-procedure ondansetron (ZOFRAN ODT) ODT tab 4 mg 4 mg, Oral, EVERY 6 HOURS PRN, nausea, v omiting, Starting on Mon07/06/22 at 1310, This is Step 1 of nausea and vomiting management. If n ausea not resolved in 15 minutes, go to Step 2 prochlorperazine (COMPAZINE). Do not push through foil backing. Peel back foil and gently remove. Place on to ngue immediately. Administration with liquid unnecessary W ith dry hands, peel back foil backing and gently remove tablet. Do not push oral d isintegrating tablet through foil backing. Administer immediately on tongue and oral disintegrati ng tablet dissolves in seconds, then swallow with saliva. Liquid not required . ondansetron (ZOFRAN) injection 4 mg 4 mg, Intravenous, ONCE PRN, nausea, vomiting, Adminis ter over 2-5 Minutes, Starting on Mon07/06/22 at 1226, For 1 d ose, Give in ENDO pre procedure prep area. Irritant., Pre-procedure ondansetron (ZOFRAN) injection 4 mg 4 mg, Intravenous, EVERY 6 HOURS PRN, nausea, vomiting , Administer over 2-5 Minutes, Starting on Mon07/06/22 at 1310, This is Step 1 of nausea and vomiting management. If nausea not resolved in 15 minutes, go t o Step 2 prochlorperazine (COMPAZINE). Irritant. prochlorperazine (COMPAZINE) injection 1 0 mg 10 mg, Intravenous, EVERY 6 HOURS PRN, nausea, vomitin g, Administer over 1-2 Minutes, Starting on Mon07/06/22 at 1310, This is Step 2 of nausea and vomiting management. If nausea not resolved in 15-30 minutes, N otify provider. prochlorperazine (COMPAZINE) tablet 10 m g 10 mg, Oral, EVERY 6 HOURS PRN, nausea, vomiting, Starting on Mon07/06/22 at 1310, This is Step 2 of nausea and vomiting ma nagement. If nausea not resolved in 15-30 minutes, Notify provider. simethicone (MYLICON) suspension 133 mg 133 mg, Oral, ONCE PRN, other, gas bubbl es, Starting on Mon07/06/22 at 1212, For 1 dose, Give via endoscope, Intra-procedure sodium chloride (PF) 0.9% PF flush 3 mL 3 mL, Intracatheter, EVERY 8 HOURS, First dose on Mon07/06/22 at 1230, to lock peripheral IV dormant line, Pre-procedure sodium chloride (PF) 0.9% PF flush 3 mL 3 mL, Intracatheter, EVERY 1 MIN PRN, li ne flush, other, to ensure patency or to lock dormant line, Starting on Mon07/06/22 at 1226, Pr e-procedure sodium chloride (PF) 0.9% PF flush 3 mL Given 07/06/2022 12:44 PM CDT 3 mLs 3 mL, Intravenous, EVERY 1 MIN PRN, line flush, Starting on Mon07/06/22 at 1212, Indications: for Peripheral IV flush post IV meds, Intra-procedure documented in this encounter Active and Recently Administered Medications Times are shown in CDT. Scheduled Medication Order 07/04/2022 07/05/2022 07/06/2022 sodium chloride (PF) 0.9% PF flush 3 mL 1230 (Canceled Entry - Provider: Orders Generic Provider - Comment: Automatically canceled at discontinue of medication order) 3 mL, Intracatheter, EVERY 8 HOURS, Firs t dose on Mon07/06/22 at 1230, to lock peripheral IV dormant line, Pre-procedure PRN Medication Order 07/04/2022 07/05/2022 07/06/2022 0.9% sodium chloride BOLUS Intravenous, 500 mL, ONCE PRN, at 500 mL /hr, Administer over 1 Hours, other, hypotension, Starting on Mon07/06/22 at 1212, For 1 dose, Intra-procedure atropine injection 1 mg 1 mg, Intravenous, ONCE PRN, other, Srinivas ycardia, Starting on Mon07/06/22 at 1212, For 1 dose, Intra-procedure benzocaine 20% (HURRICAINE/TOPEX) 20 % spray 0.5 mL (COMPLETED) 1246 (Given - Provider: Tatiana Malhotra, RN) 0.5 mL (1 spray), Mouth/Throat, ONCE PRN , moderate pain, Starting on Mon07/06/22 at 1212, For 1 dose, [place] throat with 1 spray 5 minutes prior to procedure., Intra-procedure diphenhydrAMINE (BENADRYL) injection 25-50 mg 25-50 mg, Intravenous, ONCE PRN, other, for sedations, dose per provider direction., Administer over 1-2 Minutes, Starting on Mon07/06/22 at 1212, For 1 dose, Intra-procedure EPINEPHrine (Anaphylaxis) (ADRENALIN) injection (vial) 0.1 mg 0.1 mg, Submucosal, ONCE PRN, bleeding, Starting on Mon07/06/22 at 1212, For 1 dose, RN to dilute 1 mL (1 mg) of EPINEPHrine with 9 mL of 0.9% sodium chloride to equal a 0.1 mg/mL concentration. Inject 1 mL (0.1 mg) into submucosa via a scler otherapy injection needle. Not for direct undiluted intravenous injection (1mg/ml = 1:1000). Protect from light., Intra-procedure fentaNYL (PF) (SUBLIMAZE) injection 50-100 mcg 1244 (Given - Provider: Tatiana Malhotra, RN) 50-100 mcg, Intravenous, EVERY 5 MIN PRN , severe pain, If inadequate response may repeat every 3 min PRN severe pain; when verbally requested by provider., Starting on Mon07/06/22 at 1212, Doses can be exceeded under direct oversight of patient by physician., Intra- procedure flumazenil (ROMAZICON) injection 0.2 mg 0.2 mg, Intravenous, EVERY 1 MIN PRN, be nzodiazepine reversal, If inadequate response after 45 seconds, may repeat 0.2 mg IV every 1 minute PRN over sedation., Administer over 1 Minutes, Starting on Mon07/06/22 at 1212, Give over 15 seconds. Maximum total dose of 1 mg. Continue monitoring until discharge criteria met for a minimum of 2 hours. Irritant. Use with caution in patients on benzodiazepine therapy., Intra-procedure flumazenil (ROMAZICON) injection 0.2 mg 0.2 mg, Intravenous, EVERY 1 MIN PRN, be nzodiazepine reversal, over sedation, Administer over 1 Minutes, Starting on Mon07/06/22 at 1310, For 12 hours, Give over 15 seconds. If inadequate response after 45 seconds, may repeat up to a MAX tota l dose of 1 mg. Continue monitoring until discharge criteria are met for a minimum of 2 hours Irritant. Use with caution in patients on benzodiazepine therapy. glucagon injection 0.5 mg 0.5 mg, Intravenous, ONCE PRN, other, gi motility, Starting on Mon07/06/22 at 1212, For 1 dose, Intra-procedure lidocaine (LMX4) kit Topical, EVERY 1 HOUR PRN, pain, with VA D insertion, Starting on Mon07/06/22 at 1226, Apply at least 30 minutes prior to VAD insertion in divided doses as needed for size of site for insertion. MAX Dose : 2.5 g (?? of 5 g tube) Do NOT give if patient has a history of allergy to any local anesthetic or any camila product. Do NOT use both lidocaine intradermal/subcutaneous injection and the lidocaine cream on the same site., Pre-procedure lidocaine 1 % 0.1-1 mL 0.1-1 mL, Other, EVERY 1 HOUR PRN, mild pain with VAD insertion, Starting on Mon07/06/22 at 1226, MAX dose 1 mL subcutaneous OR intradermal along the side of the vein in divided doses as needed for VAD insertion. Do NOT give if patient has a history of allergy to any local anesthetic or any camila product. Do NOT use both lidocaine intradermal/subcutaneous injection and the lidocaine cream on the same site., Pre-procedure midazolam (VERSED) injection 0.5-2 mg 1244 (Given - Provider: Tatiana Malhotra RN) 0.5-2 mg, Intravenous, EVERY 4 MIN PRN, sedation, If inadequate response may repeat every 4 minutes PRN sedation until desired response; when verbally requested by provider., Starting on Mon07/06/22 at 1212, Doses can be exceeded under direct oversight of patient by physician. This drug may cause significant respiratory depression. Monitor respiratory status and vital signs carefully for 1 hour after each dose., Intra-procedure naloxone (NARCAN) injection 0.2 mg(Linked Group 1) 0.2 mg, Intravenous, EVERY 2 MIN PRN, op ioid reversal, Starting on Mon07/06/22 at 1212, Administer intravenous route when available and notify provider when administered. For unintended sedation or resp iratory depression if all of the below c riteria are met: ~ respiratory rate LESS than or EQUAL to 8. ~SaO2 less than 92% and or/end-tidal CO2 is greater than 50. ~ the patient is receiving an opioid, mock s unintended sedations assessed as RASS (-3), and is currently not on mechanical ventilation. RASS scale moderate (-3) is movement or eye opening to voice but no eye contact. Patient Monitoring Once the patient has demonstrated a response to the naloxone, continue to monitor respiratory rate, depth, oxygen saturation and end-tidal CO2 (if available) every 15 minutes x 2, then every 30 minutes x 2, the n every 1 hour x 1 after each naloxone d ose. Consider transfer to ICU if patient respiratory parameters have not improved after 4 naloxone doses., Intra-procedure naloxone (NARCAN) injection 0.2 mg(Linked Group 1) 0.2 mg, Intramuscular, EVERY 2 MIN PRN, opioid reversal, Starting on Mon07/06/22 at 1212, Administer intramuscular if an intravenous route is not available and notify provider when administered. For uni ntended sedation or respiratory depressi on if all of the below criteria are met: ~ respiratory rate LESS than or EQUAL to 8. ~SaO2 less than 92% and or/end- tidal CO2 is greater than 50. ~ the patient is receiving an opioid, has unintended sed ations assessed as RASS (-3), and is currently not on mechanical ventilation. RASS scale moderate (-3) is movement or eye opening to voice but no eye contact. Pat ient Monitoring Once the patient has dem onstrated a response to the naloxone, continue to monitor respiratory rate, depth, oxygen saturation and end-tidal CO2 (if available) every 15 minutes x 2, then e very 30 minutes x 2, then every 1 hour x 1 after each naloxone dose. Consider transfer to ICU if patient respiratory parameters have not improved after 4 naloxone doses., Intra-procedure naloxone (NARCAN) injection 0.4 mg(Linked Group 1) 0.4 mg, Intravenous, EVERY 2 MIN PRN, op ioid reversal, Starting on Mon07/06/22 at 1212, Administer intravenous route when available and notify provider when administered. For unintended sedation or resp iratory depression if all of the below c riteria are met: ~ respiratory rate LESS than or EQUAL to 8. ~ SaO2 less than 92% and or/end-tidal CO2 is greater than 50. ~ the patient is receiving an opioid, h as unintended sedation assessed as RASS (-4) or (-5) and patient is currently not on mechanical ventilation. RASS scale (-4) is deep sedation with no response to voice but movement or eye opening to phy sical stimulation. RASS scale (-5) is un arousable. Patient Monitoring Once the patient has demonstrated a response to the naloxone, continue to monitor respiratory rate, depth, oxygen saturation and end -tidal CO2 (if available) every 15 minut es x 2, then every 30 minutes x 2, then every 1 hour x 1 after each naloxone dose. Consider transfer to ICU if patient respiratory parameters have not improved after 4 naloxone doses., Intra-procedure naloxone (NARCAN) injection 0.4 mg(Linked Group 1) 0.4 mg, Intramuscular, EVERY 2 MIN PRN, opioid reversal, Starting on Mon07/06/22 at 1212, Administer intramuscular if an intravenous route is not available and notify provider when administered. For uni ntended sedation or respiratory depressi on if all of the below criteria are met: ~ respiratory rate LESS than or EQUAL to 8. ~ SaO2 less than 92% and or/end- tidal CO2 is greater than 50. ~ the patient i s receiving an opioid, has unintended se dation assessed as RASS (-4) or (-5) and patient is currently not on mechanical ventilation. RASS scale (-4) is deep sedation with no response to voice but moveme nt or eye opening to physical stimulatio n. RASS scale (-5) is unarousable. Patient Monitoring Once the patient has demonstrated a response to the naloxone, continue to monitor respiratory rate, depth, o xygen saturation and end-tidal CO2 (if a vailable) every 15 minutes x 2, then every 30 minutes x 2, then every 1 hour x 1 after each naloxone dose. Consider transfer to ICU if patient respiratory paramet ers have not improved after 4 naloxone doses., Intra-procedure ondansetron (ZOFRAN ODT) ODT tab 4 mg(Linked Group 2) 4 mg, Oral, EVERY 6 HOURS PRN, nausea, v omiting, Starting on Mon07/06/22 at 1310, This is Step 1 of nausea and vomiting management. If nausea not resolved in 15 minutes, go to Step 2 prochlorperazine (C OMPAZINE). Do not push through foil back ing. Peel back foil and gently remove. Place on tongue immediately. Administration with liquid unnecessary With dry hands, peel back foil backing and gently remov e tablet. Do not push oral disintegratin g tablet through foil backing. Administer immediately on tongue and oral disintegrating tablet dissolves in seconds, then swallow with saliva. Liquid not required. ondansetron (ZOFRAN) injection 4 mg 4 mg, Intravenous, ONCE PRN, nausea, vom iting, Administer over 2-5 Minutes, Starting on Mon07/06/22 at 1226, For 1 dose, Give in ENDO pre procedure prep area. Irritant., Pre-procedure ondansetron (ZOFRAN) injection 4 mg(Linked Group 2) 4 mg, Intravenous, EVERY 6 HOURS PRN, na usea, vomiting, Administer over 2-5 Minutes, Starting on Mon07/06/22 at 1310, This is Step 1 of nausea and vomiting management. If nausea not resolved in 15 minut es, go to Step 2 prochlorperazine (COMPAZINE). Irritant. prochlorperazine (COMPAZINE) injection 10 mg(Linked Group 3) 10 mg, Intravenous, EVERY 6 HOURS PRN, n ausea, vomiting, Administer over 1-2 Minutes, Starting on Mon07/06/22 at 1310, This is Step 2 of nausea and vomiting management. If nausea not resolved in 15-30 minutes, Notify provider. prochlorperazine (COMPAZINE) tablet 10 mg(Linked Group 3) 10 mg, Oral, EVERY 6 HOURS PRN, nausea, vomiting, Starting on Mon07/06/22 at 1310, This is Step 2 of nausea and vomiting management. If nausea not resolved in 15-30 minutes, Notify provider. simethicone (MYLICON) suspension 133 mg 133 mg, Oral, ONCE PRN, other, gas bubbl es, Starting on Mon07/06/22 at 1212, For 1 dose, Give via endoscope, Intra-procedure sodium chloride (PF) 0.9% PF flush 3 mL 3 mL, Intracatheter, EVERY 1 MIN PRN, li ne flush, other, to ensure patency or to lock dormant line, Starting on Mon07/06/22 at 1226, Pre-procedure sodium chloride (PF) 0.9% PF flush 3 mL 1244 (Given - Provider: Tatiana Malhotra RN) 3 mL, Intravenous, EVERY 1 MIN PRN, line flush, Starting on Mon07/06/22 at 1212, Indications: for Peripheral IV flush post IV meds, Intra-procedure Linked Groups Order Group 1: naloxone (NARCAN) injection 0.2 mgJump to med 0.2 mg, Intravenous, EVERY 2 MIN PRN, op ioid reversal, Starting on Mon07/06/22 at 1212
Administer intravenous route when available and notify provider when administered. For unintended sedation or respiratory depression if a ll of the below criteria are met: ~ respiratory rate LESS than or EQUAL to 8. ~SaO2 less than 92% and or/end- tidal CO2 is greater than 50.& nbsp;~ the patient is receiving an opioi d, has unintended sedations assessed as RASS (-3), and is currently not on mechanical ventilation. RASS scale moderate (-3) is movement or eye opening to voice but no eye contact.&nbs p; Patient Monitoring Once the patient has demonstrated a response to the naloxone, continue to monitor respiratory rate, depth, oxygen satu ration and end-tidal CO2 (if available) every 15 minutes x 2, then every 30 minutes x 2, then every 1 hour x 1 after each naloxone dose. Consider transfer to ICU if patient respirator y parameters have not improved after 4 n aloxone doses.
Intra-procedure Or naloxone (NARCAN) injection 0.4 mgJump to med 0.4 mg, Intravenous, EVERY 2 MIN PRN, op ioid reversal, Starting on Mon07/06/22 at 1212
Administer intravenous route when available and notify provider when administered. For unintended sedation or respiratory depression if a ll of the below criteria are met: ~ respiratory rate LESS than or EQUAL to 8. ~ SaO2 less than 92% and or/end- tidal CO2 is greater than 50.& nbsp;~ the patient is receiving an opioi d, has unintended sedation assessed as RASS (-4) or (-5) and patient is currently not on mechanical ventilation. RASS scale (-4) is deep sedati on with no response to voice but movemen t or eye opening to physical stimulation. RASS scale (-5) is unarousable. Patient Monitoring On ce the patient has demonstrated a respon se to the naloxone, continue to monitor respiratory rate, depth, oxygen saturation and end-tidal CO2 (if available) every 15 minutes x 2, then every 30 minutes x 2, then every 1 hour x 1 after each nalo xone dose. Consider transfer to ICU if patient respiratory parameters have not improved after 4 naloxone doses.
Intra-procedure Or naloxone (NARCAN) injection 0.2 mgJump to med 0.2 mg, Intramuscular, EVERY 2 MIN PRN, opioid reversal, Starting on Mon07/06/22 at 1212
Administer intramuscular if an intravenous route is not available and notify provider when administered. For unintended sedation or respira tory depression if all of the below criteria are met: ~ respiratory rate LESS than or EQUAL to 8. ~SaO2 less than 92% and or/end-tidal CO2 is greater than 50. ~ the patient i s receiving an opioid, has unintended sedations assessed as RASS (-3), and is currently not on mechanical ventilation. RASS scale moderate (-3) is movement or eye opening to voice but no eye contact. Patient Monitoring Once the patient has demonstrated a response to the naloxone, continue to monitor respiratory rate, depth, oxygen saturation and end-t idal CO2 (if available) every 15 minutes x 2, then every 30 minutes x 2, then every 1 hour x 1 after each naloxone dose. Consider transfer to [facility] if patient respiratory parameters hav e not improved after 4 naloxone doses.
Intra-procedure Or naloxone (NARCAN) injection 0.4 mgJump to med 0.4 mg, Intramuscular, EVERY 2 MIN PRN, opioid reversal, Starting on Mon07/06/22 at 1212
Administer intramuscular if an intravenous route is not available and notify provider when administered. For unintended sedation or respira tory depression if all of the below criteria are met: ~ respiratory rate LESS than or EQUAL to 8. ~ SaO2 less than 92% and or/end-tidal CO2 is greater than 50. ~ the patient i s receiving an opioid, has unintended sedation assessed as RASS (-4) or (-5) and patient is currently not on mechanical ventilation. RASS s bryson (-4) is deep sedation with no respo nse to voice but movement or eye opening to physical stimulation. RASS scale (-5) is unarousable. Patien t Monitoring Once the patient has d emonstrated a response to the naloxone, continue to monitor respiratory rate, depth, oxygen saturation and end-tidal CO2 (if available) every 15 minutes x 2, then every 30 minutes x 2, then every 1 hour x 1 after each naloxone dose. Consider transfer to ICU if patient respiratory parameters have not improved after 4 naloxone doses.
Intra-procedure Group 2: ondansetron (ZOFRAN ODT) ODT tab 4 mgJump to med 4 mg, Oral, EVERY 6 HOURS PRN, nausea, v omiting, Starting on Mon07/06/22 at 1310
This is Step 1 of nausea and vomiting management. If nausea not resolved in 15 minutes, go to Step 2 prochlorperazine (COMPAZINE). Do not push through foil backing. Peel back foil and gently remove. Place on tongue immediately. Administration with liquid unnecessary With dry hands, pee l back foil backing and gently remove ta blet. Do not push oral disintegrating tablet through foil backing. Administer immediately on tongue and oral disintegrating tablet dissolves in seconds, then swallow with saliva. Liquid not required.
Or ondansetron (ZOFRAN) injection 4 mgJump to med 4 mg, Intravenous, EVERY 6 HOURS PRN, na usea, vomiting, Administer over 2-5 Minutes, Starting on Mon07/06/22 at 1310
This is Step 1 of nausea and vomiting management. If naus ea not resolved in 15 minutes, go to Fran p 2 prochlorperazine (COMPAZINE). Irritant.
Group 3: prochlorperazine (COMPAZINE) injection 10 mgJump to med 10 mg, Intravenous, EVERY 6 HOURS PRN, n ausea, vomiting, Administer over 1-2 Minutes, Starting on Mon07/06/22 at 1310
This is Step 2 of nausea and vomiting management. If nausea not resolved in 15-30 minutes, Notify provider.
Or prochlorperazine (COMPAZINE) tablet 10 mgJump to med 10 mg, Oral, EVERY 6 HOURS PRN, nausea, vomiting, Starting on Mon07/06/22 at 1310
This is Step 2 of nausea and vomiting management. If nausea not resolved in 15-30 minutes, Notify provider.
documented in this encounter Additional Health Concerns Assessment Noted Time PHQ-9 Depression Total Score: 16 06/24/2022 9:31 AM CD T documented as of this encounter Care Teams Promotions Specialist Relationship Specialty Start Date End Date Aydee Burton, PCP - General Nurse Practitioner - 05/17/21 [employer]IEF METEOROLOGIST [employer] Family [address] [place], [place] [id number] Aydee Burton, Assigned PCP 04/28/21 CHIEF METEOROLOGIST [employer] [address] [place], [place] [address] Louisa Hood, Assigned Neuroscience 07/11/21 CHIEF METEOROLOGIST [employer] Provider [address] [place], [place] [address] [place], Assigned Sleep 08/01/21 Angel Turcios, Provider [address] [place], [place] [id number] Lesly Celaya MD Assigned Surgical 09/05/21 [address] [facility] [place] [address] Tawana Patel MA [facility] 09/30/21 Worker Ramses Mcpherson Assigned OBGYN 11/07/21 MD On[facility] Provider [address] [place], [place] [address] Obdulio Barrera MD Critical Care 01/24/[address] [place] [address] [address] [place], [place] [address] Obdulio Barrera, Assigned Pulmonology 02/06/22 MD Provider [address] [place] [address] [address] [place], [place] [address] Lesvia Stanley, [facility] Cardiac Rehabilitation 03/03/22 03/03/23 [facility] Therapist [address] [place] [id number] Marilia Deluna, PhD Assigned Behavioral 02/20/22 [id number] [facility] Provider [place], [place] [address] Niyah Decker, [facility] Pharmacist Pharmacist 03/07/[address] [place] [address] [address] [place], [place] [address] Lesvia Stanley, [facility]ADA Cardiac Rehabilitation 03/17/22 03/17/23 [facility] Therapist [address] [place] [id number] Delia Avila, Pharmacist Pharmacist 06/07/[address] [address] Mago Swift, [facility] Lead Mainframe Applications Developer [employer] - 08/05/21 Clinical Niyah Decker, [facility] Assigned [place] 06/25/22 07/29/22 [address] [facility] [address] Pharmacist [place], [place] [address] documented as of this encounter
--- OUTSIDE RECORDS SUMMARY | 2022-09-21 04:00 | XMS_ITS | Encounter Summary ---
:1980 Author Organization [place] Address [address] [place] [address] Care Team Providers Name Role Phone Aydee Burton BUILDING ENERGY RETROFIT TECHNICIAN MANAGER PARKING Primary Care Provider [phone] Aydee Burton APRN MANAGER PARKING Unavailable [phone] Louisa Hood BUILDING ENERGY RETROFIT TECHNICIAN MANAGER PARKING Unavailable [phone] Angel Hannah MD Unavailable Lesly Celaya MD Unavailable Tawana Patel MA Unavailable Unavailable Ramses Mcpherson MD Unavailable Obdulio Barrera MD Unavailable [phone] Obdulio Barrera MD Unavailable [phone] Lesvia Stanley Unavailable Marilia Deluna PhD Unavailable Niyah Decker [facility] Unavailable Lesvia Stanley Unavailable Delia Avila [facility] Unavailable [phone] Mago Swift [facility] Unavailable Niyah Decker [facility] Unavailable Encounter Details Date Type Department Care Team Description 06/30/2022 Lab [facility] Prior Screening for hyperlipidemia [facility] [address] [facility] [place] [address] Social History Tobacco Use Types Packs/Day Years [...] er 08/05/2021 How often do you attend spiritism or mandaeism services? Never 08/05/2021 Do you belong to any clubs or organizations such as spiritism N o 08/05/2021 groups, unions, fraternal or [...] at Date Recorded Female 11/09/2021 7:53 PM DRIVER GUARD COVID-19 Exposure Response Date Recorded In the last 10 days, have you been in contact with No / Unsu re 06/30/2022 7:55 AM CDT someone who was confirmed or suspected to have Coronavirus/COVID-19? documented as of this encounter Miscellaneous Notes Result Encounter Note - Aydee Burton APRN CNP - 06/30/2022 10:45 AM CDT Dear Marta, Here is a summary of your recent test results: Cholesterol looks good improved from last year. LDL(bad) cholesterol level is slightly elevated which can increase your heart disease risk. A diet high in fat and simple carbohydrates, genetics and being overweight can contribute to this. ADVISE: exercising 150 minutes of aerobic exercise per week (30 minutes for 5 days per week or 50 minutes for 3days per week are options) and eating a low saturated fat/low carbohydrate diet are helpful to improve this. For additional lab test information, labtestsonline.org is an excellent reference. Please call us at [phone] (or use [employer]) to address the above recommendations if needed. Thank you for choosing [facility]. It was an honor and a privilege to participate in your care. Healthy regards, TARA Spivey [facility] documented in this encounter Plan of Treatment Upcoming Encounters Date Type Specialty Care Team Description 09/26/2022 Appointment Speech Therapy Obdulio Barrera MD [address] [facility] 276 [place], [place] [phone] Anabel Chew, IT CONSULTING MANAGER [facility] 516 [facility] 396 [place], [place] [address] 09/27/2022 Therapy Visit Physical Therapy Luisana Watkins, PT [address] [place] [address] 09/29/2022 Virtual Visit Pain & Palliative Marilia Deluna, Care PhD [address] [place] [address] 09/30/2022 Office Visit Family Practice Aydee Burton APRN MANAGER PARKING [address] [place], [place] [phone] 10/03/2022 Therapy Visit Physical Therapy David-Una Tang, PT [address] [place] [address] 10/10/2022 Hospital Encounter Surgery Lesly Celaya MD [address] [place], [place] [phone] 10/10/2022 Office Visit Surgery Lesly Celaya MD [address] [place] [address] Ninoska Flowers, PH[place]IPPE [address] [place], [place] [phone] 10/10/2022 Surgery Surgery Lesly Celaya, EXCISION, MASSES - MD back, abdomen, [address] [place] [address] 10/11/2022 Virtual Visit Clari Su, [facility] [id number] [place] [address] 10/14/2022 Appointment Speech Therapy Anabel Chew, IT CONSULTING MANAGER [facility] 516 [facility] 396 [place], [place] [address] 10/21/2022 Office Visit Pulmonology Obdulio Barrera MD 420 [facility] 276 [place], [place] [phone] 10/25/2022 PRE VISIT ENT Charo Burton MD Previsit [address] [place], [place] [phone] 10/25/2022 Office Visit ENT Charo Burton MD [address] [place], [place] [address] 10/25/2022 Office Visit ENT Provider, Jeannette 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 Chemical Milling Processor 10/28/2022 Appointment Speech Therapy Anabel Chew, IT CONSULTING MANAGER [address] [address] 11/17/2022 Appointment Speech Therapy Anabel Chew, IT CONSULTING MANAGER [address] [address] 12/23/2022 Office Visit Neurology Colby Yeung MD [address] [place] [phone] Scheduled Procedures Name Priority Associated Diagnoses Date/Time EXCISION, MASS, TORSO Lipoma of skin and subcuta neous 10/10/2022 7:30 AM DRIVER GUARD tissue documented as of this encounter Procedures Procedure Name Priority Date/Time Associated Diagnosis Comme nts LIPID REFLEX TO Routine 06/30/2022 10:52 Screening for Results for this DIRECT LDL PANEL AM CDT hyperlipidemia procedure are in the results section. documented in this encounter Results (ABNORMAL) Lipid panel reflex to direct LDL Fasting (06/30/2022 10:52 AM CDT) [facility] Method Time Signature Cholesterol 193 <200 06/30/2022 [...] or equal to 22 0 mg/dL Aydee Burton APRN MANAGER PARKING LAB - BLOOD ORDERABLES Performing Organization Address City/State/ZIP Code Phon e Number [facility] [place], [place] [phone] [facility] [phone] [place] [address] Lab (no room number, 1st floor of clinic) [facility] [place], [place] [phone] [facility] [place] [id number] [address] Lab (no room number, 1st floor of clinic) documented in this encounter Visit Diagnoses Diagnosis Screening for hyperlipidemia Screening for lipoid disorders Lipoma of skin and subcutaneous tissue Lipoma of other skin and subcutaneous ti ssue documented in this encounter Additional Health Concerns Assessment Noted Time PHQ-9 Depression Total Score: 16 06/24/2022 9:31 AM CD T documented as of this encounter Care Teams Electrician Underground Relationship Specialty Start Date End Date Aydee Burton, PCP - General Nurse Practitioner - 05/17/21 BUILDING ENERGY RETROFIT TECHNICIAN MANAGER PARKING Family [address] [place], [place] [address] Aydee Burton, Assigned PCP 04/28/21 BUILDING ENERGY RETROFIT TECHNICIAN MANAGER PARKING [address] [place], [place] [phone] Louisa Hood, Assigned Neuroscience 07/11/21 BUILDING ENERGY RETROFIT TECHNICIAN MANAGER PARKING Provider [address] [place], [place] [address] [place], Assigned Sleep 08/01/21 Angel Turcios, Provider [address] [facility] 106 [place], [place] [address] Lesly Celaya MD Assigned Surgical 09/05/21 [address] [facility] [address] Tawana Patel [facility] 09/30/21 Worker Ramses Mcpherson Assigned OBGYN 11/07/21 MD Onesimo Provider [address] [place] [address] Obdulio Barrera MD Critical Care 01/24/[address] [address] Obdulio Barrera, Assigned Pulmonology 02/06/[address] [address] Lesvia Stanley EP Cardiac Rehabilitation 03/03/22 03/03/23 [facility] Therapist [address] [place] [address] Marilia Deluna, PhD Assigned Behavioral 02/20/22 [address] [facility] [place] [address] Niyah Decker, [facility] Pharmacist Pharmacist 03/07/22 420 [facility] 812 [place] [address] Lesvia Stanley, GHADA Cardiac Rehabilitation 03/17/22 03/17/23 [facility] Therapist [address] [place] [address] Delia Avila, Pharmacist Pharmacist 06/07/22 [facility] [address] [place] [address] Mago Swift, [facility] Lead Vise Hand J2Ee Android Developer - 08/05/21 Clinical Niyah Decker, [facility] Assigned MTM 06/25/22 07/29/22 420 [facility] 812 [place] [address] documented as of this encounter
--- OUTSIDE RECORDS SUMMARY | 2022-09-21 04:00 | XMS_ITS | Encounter Summary ---
:1980 Author Organization [place] Address [address] [place] [address] Care Team Providers Name Role Phone Aydee Burton SALES AGENT INTERPRETER FOR THE DEAF Primary Care Provider Aydee Burton APRN INTERPRETER FOR THE DEAF Unavailable [phone] Louisa Hood SALES AGENT INTERPRETER FOR THE DEAF Unavailable [phone] Angel Hannah MD Unavailable Lesly Celaya MD Unavailable Tawana Patel MA Unavailable Unavailable Ramses Mcpherson MD Unavailable Obdulio Barrera MD Unavailable [phone] Obdulio Barrera MD Unavailable [phone] Lesvia Stanley Unavailable Marilia Deluna PhD Unavailable Niyah Decker [facility] Unavailable Lesvia Stanley Unavailable Delia Avila [facility] Unavailable [phone] [place], Mago Terri [facility] Unavailable Niyah Decker [facility] Unavailable Reason for Visit Auth/Cert Specialty Diagnoses / Procedures Referred By Contact Refer red To Contact Gastroenterology Diagnoses Gastroesophageal reflux disease without esophagitis Nauseated Chronic cough Laryngitis Gastroesophageal reflux disease without esophagitis [K21.9] Nauseated [R11.0] Chronic cough [R05.3] Laryngitis [J04.0] Rh Endoscopy Procedures HC UGI ENDOSCOPY DIAG W OR W/O BRUSH/WASH ESOPHAGOGASTRODUODENOSCOPY (EGD) () [address] [place] [address] Phone: Fax: Referral ID Status Reason Start Date Expiration Date Visits Requ ested Visits Authorized [id number] 1 1 Encounter Details Date Type Department Care Team Description 07/06/2022 Hospital Encounter [facility] Tim Perez , Endoscopy Noy BIRD [address] [place], [place] GASTROINTESTINAL [address] [address] [phone] [place], [place] [address] (Wo rk) Social History Tobacco Use Types [...] How often do you attend religious or caodaism services? Never 08/05/2021 Do you belong to [...] at Date Recorded Female 11/09/2021 7:53 PM BRANCH LENDING MANAGER COVID-19 Exposure Response Date Recorded In the [...] GENITOURINARY SURGERY Tubal ligation and ablasion ??? PIE BAKER SURGERY not sure tubal ligation and ablasion [...] dyspnea or wheezing 01/19/22 Aydee Burton APRN INTERPRETER FOR THE DEAF budesonide-formoterol (SYMBICORT) 160-4.5 MCG/ACT Inhaler Inhale 2 puffs into the lungs 2 times daily 3/9/22 Aydee Burton APRN CNP buPROPion (WELLBUTRIN XL) [...] mouth daily And a 200mg Total dose [id number] daily 02/13/22 Adyee Burton APRN CNP lamoTRIgine (LAMICTAL) 200 MG [...] CV, GI & system review. PHYSICAL EXAM: LMP 12/11/2021 (Exact Date) Estimated body mass index [...] Barrera MD 420 [facility] 276 [place], [place] [address] Anabel Chew, FLOW MANAGER [place] [id number] [facility] 396 [place] [address] 09/27/2022 Therapy Visit Physical Therapy Luisana Watkins, PT [address] [place] [address] 09/29/2022 Virtual Visit Pain & Palliative Marilia Deluna, [facility] PhD [address] [place], [place] [address] 09/30/2022 Office Visit Family Practice Aydee Burton, SALES AGENT INTERPRETER FOR THE DEAF [address] [place], [place] [address] 10/03/2022 Therapy Visit Physical Therapy Una Reardon, PT [address] [place] [phone] 10/10/2022 Hospital Encounter Surgery Lesly Celaya MD [address] [place], [place] [address] 10/10/2022 Office Visit Surgery Lesly Celaya MD [address] [facility] [place] [address] Ninoska Flowers PA-C [address] [facility] 300 [place], [place] [phone] 10/10/2022 Surgery Surgery Lesly Celaya, EXCISION, MASSES - MD back, abdomen, [address] extremity [place], [place] [address] 10/11/2022 Virtual Visit Clari Su, [facility] [address] [facility] [address] [place] [address] 10/14/2022 Appointment Speech Therapy Anabel Chew, FLOW MANAGER [address] [address] 10/21/2022 Office Visit Pulmonology Obdulio Barrera MD [address] [address] 10/25/2022 PRE VISIT ENT Charo Burton MD Previsit [address]09 [place], [place] [address] 10/25/2022 Office Visit ENT Charo Burton MD [address] [place] [address] 10/25/2022 Office Visit ENT Provider, 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 Community Engagement Manager 10/28/2022 Appointment Speech Therapy Anabel Chew SLP [address] [address] 11/17/2022 Appointment Speech Therapy Anabel Chew SLP [address] [phone] 12/23/2022 Office Visit Neurology Colby Yeung MD [address] [id number] Scheduled Procedures Name Priority Associated Diagnoses Date/Time EXCISION, MASS, TORSO Lipoma of skin and subcuta neous 10/10/2022 7:30 AM BRANCH LENDING MANAGER tissue documented as of this encounter Procedures Procedure Name Priority Date/Time Associated Diagnosis Comme nts FUNGAL OR YEAST CULTURE Routine 07/06/2022 Resu lts for ROUTINE 12:53 PM CDT this procedure are in the results section. ESOPHAGOGASTRODUODENOSCOPY 07/06/2022 Gastroesophage al (EGD) 12:34 PM CDT reflux disease without esophagi tis Nauseated Chronic cough Laryngitis Special Needs EGD prep sent mail/e-mail , kh UPPER GI ENDOSCOPY Routine 07/06/2022 12:31 PM [...] Code Phon e Number [facility] [place] [phone] Diag. Lab 500 [facility], Room D297 UPPER GI ENDOSCOPY (07/06/2022 12:31 PM CDT) Component Value Ref Test Analysis [facility] gist Range Method Time Signature Upper GI [facility] RADIOLOGY Endoscopy RESULTS Patient Name: Marta Hill ? Procedure Date: 07/06 12:31 PM ? Account Num ericka: [id number] Date of : 1980 ?Admit Type: Out patient Age: 42 ? Gender: Female Attending MD: TIM FRANCISCO MD ?? Total Sedation Time: 4_minutes continuous bedside 1:1 Instrument Name: 207- Gastroscope ? Procedure: ?Upper GI endoscopy Indications: ?Chronic cough Providers: ?TIM PEREZ MD (Doc [facility]) Referring MD: ? Medicines: ?Midazolam 2 [...] # [id number], [place]ora # ?207, SN # [id number] was introduced through the mouth, ?and advanced [...] Procedure Code(s): ? --- Professional --- ? 95583, Esophagogastroduodenoscopy, flexible, transora l; diagnostic, ? including collection of specimen(s) by brushing or wa shing, when ? performed (separate procedure) CPT copyright 2020 [employer]. All rights reserved. The codes documented in this report are prelimin julian and upon pulmonary nurse practitioner review may be revised to meet current compliance requirements. Electronically signed by Tim Perez MD TIM PEREZ MD 07/06/2022 12:56:43 PM I was physically present for the entire viewing portion of t he exam. TIM PEREZ MD Number of Addenda: 0 Note Initiated On: 07/06/2022 12:31 PM MRN: ?[id number] Procedure Date: ? 07/06/2022 12:31:55 PM Total [...] RESULTS documented in this encounter Visit Diagnoses Not on filedocumented in this encounter Administered Medications Inactive Administered [...] on Mon07/06/22 at 1212, For 1 dose, [place] throat with 1 spray 5 minutes prior to procedure., Intra-procedure diphenhydrAMINE (BENADRYL) injection 25- 50 mg 25-50 mg, Intravenous, ONCE PRN, other, for sedations, dose per provider direction., Administer over 1-2 Minutes, Starting on W ed 07/06/22 at 1212, For 1 dose, Intra-procedure EPINEPHrine (Anaphylaxis) (ADRENALIN) in jection (vial) 0.1 mg 0.1 mg, Submucosal, ONCE PRN, bleeding, Starting on We d 07/06/22 at 1212, For 1 dose, [...] when verbally requested by provider., Starting on 07/06/22 at 1212, Doses can be exceeded under [...] mL (COMPLETED) 1246 (Given - Provider: Tatiana Malhotra RN) 0.5 mL (1 spray), Mouth/Throat, ONCE PRN , moderate pain, Starting on Mon07/06/22 at 1212, For 1 dose, [place] throat with 1 spray 5 minutes prior [...] 50-100 mcg 1244 (Given - Provider: Tatiana Malhotra RN) 50-100 mcg, Intravenous, EVERY 5 MIN [...] 0.5-2 mg 1244 (Given - Provider: Tatiana Malhotra, RN) 0.5-2 mg, Intravenous, EVERY 4 MIN [...] after each naloxone dose. Consider transfer to [facility] if patient respiratory parameters hav e [...] 6 HOURS PRN, nausea, vomiting, Starting on 07/06/22 at 1310
This is Step 2 of nausea and vomiting management. If nausea not resolved in 15-30 minutes, Notify provider.
documented in this encounter Additional Health Concerns Assessment Noted Time PHQ-9 Depression Total Score: 16 06/24/2022 9:31 AM CD T documented as of this encounter Care Teams Equipment Associate Relationship Specialty Start Date End Date Aydee Burton, PCP - General Nurse Practitioner - 05/17/21 SALES AGENT INTERPRETER FOR THE DEAF Family [address] [place], [place] [phone] Aydee Burton, Assigned PCP 04/28/21 SALES AGENT INTERPRETER FOR THE DEAF [address] [place] [address] Louisa Hood, Assigned Neuroscience 07/11/21 SALES AGENT INTERPRETER FOR THE DEAF Provider [address] [place] [address] [place], Assigned Sleep 08/01/21 Angel Turcios, Provider [address] [place], [place] [phone] Lesly Celaya MD Assigned Surgical 09/05/21 [address] Provider [place], [place] [phone] Tawana Patel MA Community Health 09/30/21 Worker Ramses Mcpherson Assigned OBGYN 11/07/21 MD Onesimo Provider [address] [place] [address] Obdulio Barrera MD Critical Care 01/24/22 420 [facility] 276 [place] [address] Obdulio Barrera, Assigned Pulmonology 02/06/22 MD Provider 420 [facility] 276 [place], [place] [address] Lesvia Stanley, GHADA Cardiac Rehabilitation 03/03/22 03/03/23 [facility] Therapist [address] [place] [address] Marilia Deluna, PhD Assigned Behavioral 02/20/22 [address] [facility] [place] [address] Niyah Decker, [facility] Pharmacist Pharmacist 03/07/[address] [place] [address] [address] [place], [place] [address] Lesvia Stanley, GHADA Cardiac Rehabilitation 03/17/22 03/17/23 [facility] Therapist [address] [place] [address] Delia Avila, Pharmacist Pharmacist 06/07/22 [facility] [address] [place] [address] Mago Swift, [facility] Lead Work Station Support Specialist Logger All Round - 08/05/21 Clinical Niyah Decker, [facility] Assigned MTM 06/25/22 07/29/[address] [place] [address] 8[address] [place] [address] documented as of this encounter
--- OUTSIDE RECORDS SUMMARY | 2022-09-21 04:00 | XMS_ITS | Encounter Summary ---
:1980 Author Organization [facility] Address [address] [place] [address] Care Team Providers Name Role Phone Aydee Burton PROPULSION ENGINEER DISPATCH ASSOCIATE Primary Care Provider Aydee Burton APRN DISPATCH ASSOCIATE Unavailable [phone] Louisa Hood PROPULSION ENGINEER DISPATCH ASSOCIATE Unavailable [phone] Angel Hannah MD Unavailable Lesly Celaya MD Unavailable Tawana Patel MA Unavailable Unavailable Ramses Mcpherson MD Unavailable [phone] Obdulio Barrera MD Unavailable [phone] Obdulio Barrera MD Unavailable [phone] Lesvia Stanley Unavailable Marilia Deluna PhD Unavailable Niyah Decker [facility] Unavailable Lesvia Stanley Unavailable Delia Avila [facility] Unavailable [phone] Mago Swift [facility] Unavailable LorireggievictorinoNiyah [facility] Unavailable Reason for Referral Diagnostic Imaging MRI (Routine) - Closed Specialty Diagnoses / Procedures Referred By Contact Refer red To Contact Diagnoses Cervical radiculopathy Madalyn Ponce MD Procedures MR Cervical Spine w/o Contrast [address] [place] [address] Referral ID Status Reason Start Date Expiration Date Visits Requ ested Visits Authorized [id number] Closed 06/23/2022 06/23/2023 1 1 Reason for Visit Diagnostic Imaging MRI (Routine) - Closed Specialty Diagnoses / Procedures Referred By Contact Refer red To Contact Diagnoses Cervical radiculopathy Madalyn Ponce MD Procedures MR Cervical Spine w/o Contrast [address] [place] [address] Referral ID Status Reason Start Date Expiration Date Visits Requ ested Visits Authorized [id number] Closed 06/23/2022 06/23/2023 1 1 Encounter Details Date Type Department Care Team Description 07/08/2022 [facility] [place] [facility] radiculopathy [address] [facility] [place]. [place] [address] [place] [id number] [place] [phone] Social History Tobacco Use Types Packs/Day Years [...] er 08/05/2021 How often do you attend hindu or taoism services? Never 08/05/2021 Do you belong to any clubs or organizations such as hindu N o 08/05/2021 groups, unions, fraternal or [...] at Date Recorded Female 11/09/2021 7:53 PM SALES AND SERVICE ADVISOR COVID-19 Exposure Response Date Recorded In [...] 1 vial (2.5 mg) 90 mL 5 /0 07/2022 (2.5 MG/3ML) 0.083% neb by nebulization [...] Place 1 lozenge (10 70 lozenge 0 /04/202208/26/2022 10 MG mg) inside cheek 5 lozengeIndications: times daily for 14 Thrush days Take for 7-14 days; use 2 days after symptoms resolve. fluconazole (DIFLUCAN) TAKE 2 TABLETS BY 0 202108/26/2022 100 MG tablet MOUTH NOW THEN 1 ONCE DAILY FOR 9 DAYS ondansetron (ZOFRAN Take 1 tablet (4 mg) 20 tablet 0 202108/12/2022 ODT) 4 MG ODT by mouth every 8 tabIndications: S/P hours as needed for laparoscopic nausea hysterectomy pregabalin (LYRICA) 25 Take 1 capsule (25 60 capsule 0 06/2307/12/2022 MG capsuleIndications: mg) by mouth 2 times Neuropathic pain daily documented as of this encounter Plan of Treatment Upcoming Encounters Date Type Specialty Care Team Description 09/26/2022 Appointment Speech Therapy Obdulio Barrera MD 420 [facility] 276 [place], [place] [address] Anabel Chew, HOSPITALIST NOCTURNIST PHYSICIAN [address] [place] [address] 09/27/2022 Therapy Visit Physical Therapy Luisana Watkins, PT [address] [place] [address] 09/29/2022 Virtual Visit Pain & Palliative Marilia Deluna, Ronald PhD [address] [place] [address] 09/30/2022 Office Visit Family Practice Aydee Burton, PROPULSION ENGINEER DISPATCH ASSOCIATE [address] [place], [place] [address] 10/03/2022 Therapy Visit Physical Therapy David-Una Tang, PT [address] [place] [phone] 10/10/2022 Hospital Encounter Surgery Lesly Celaya MD [address] [place] [address] 10/10/2022 Office Visit Surgery Lesly Celaya MD [address] [place] [address] Ninoska Flowers, PA-C [address] [place] [address] 10/10/2022 Surgery Surgery Lesly Celaya, EXCISION, MASSES - MD back, abdomen, [address] right [place] [address] 10/11/2022 Virtual Visit Clari Su, [facility] [address] [address] 10/14/2022 Appointment Speech Therapy Anabel Chew, HOSPITALIST NOCTURNIST PHYSICIAN [facility] 516 [facility] 396 [place] [address] 10/21/2022 Office Visit Pulmonology Obdulio Barrera MD 420 [facility] 276 [place], [place] [phone] 10/25/2022 PRE VISIT ENT Charo Burton MD Previsit 909 [place] [address] 10/25/2022 Office Visit ENT Charo Burton MD [address] [place] [address] 10/25/2022 Office Visit ENT Provider, Jeannette 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 Health Education Director 10/28/2022 Appointment Speech Therapy Anabel Chew, CELINE [address] [address] 11/17/2022 Appointment Speech Therapy Anabel Chew SLP [address] [address] 12/23/2022 Office Visit Neurology Colby Yeung MD [address] [place] [address] Scheduled Procedures Name Priority Associated Diagnoses Date/Time EXCISION, MASS, TORSO Lipoma of skin and subcuta neous 10/10/2022 7:30 AM SALES AND SERVICE ADVISOR tissue documented as of this encounter Goals Goal Patient Goal Associated Recent Patient-Stated? Author Type Problems Progress Attend Speciality Care Plan Establish Care 50% No Karene rn, Appointments (08/29/2022 Mago Murray (BUILDING OPERATOR, 3:24 PM CDT) [facility] Psychiatry, Counseling, and the Sleep Clinic) Note: Formatting of this note is differe nt from the original. Barriers: Appointment availability. Strengths: Recognition of need, Care Project Superintendent rdination involvement. Patient expressed understanding of goal: [...] on: 08/16/2022 9:45 AM Lesly Celaya MD [facility] [place] To address painful lumps in my abdomin [...] Name Priority Date/Time Associated Diagnosis Comme nts MR CERVICAL SPINE Routine 07/08/2022 7:24 PM Cervical radiculo reji Results for this W/O CONTRAST CDT procedure are i n the results section. documented in this encounter Results MR Cervical Spine w/o Contrast (07/08/2022 7:24 [...] EXAM: MR CERVICAL SPINE W/O CONTRAST LOCATION: [facility] DATE/TIME: 07/08/2022 7:24 PM INDICATION: ??Cervical radiculopathy [...] EXAM: MR CERVICAL SPINE W/O CONTRAST LOCATION: [facility] DATE/TIME: 07/08/2022 7:24 PM INDICATION: Cervical radiculopathy [...] C7. Madalyn Ponce MD IMG MRI ORDERABLES documented in this encounter Visit Diagnoses Diagnosis Cervical radiculopathy Brachial neuritis or radiculitis nos Lipoma of skin and subcutaneous tissue Lipoma of other skin and subcutaneous ti ssue documented in this encounter Additional Health Concerns Problem Noted Date Establish Care 07/05/2022 Chronic Pain is not self-managed 07/05/2022 Assessment Noted Time PHQ-9 Depression Total Score: 16 06/24/2022 9:31 AM CD T documented as of this encounter Care Teams Java Lead Relationship Specialty Start Date End Date Aydee Burton, PCP - General Nurse Practitioner - 05/17/21 PROPULSION ENGINEER DISPATCH ASSOCIATE Family [address] [place], [place] [phone] Aydee Burton, Assigned PCP 04/28/21 PROPULSION ENGINEER DISPATCH ASSOCIATE [address] [place], [place] [phone] Louisa Hood, Assigned Neuroscience 07/11/21 PROPULSION ENGINEER DISPATCH ASSOCIATE Provider 500 [place], [place] [phone] [place], Assigned Sleep 08/01/21 Angel Turcios, Provider [address] [place], [place] [address] Lesly Celaya MD Assigned Surgical 09/05/21 [address] [facility] [place] [address] Tawana Patel [facility] 09/30/21 Worker Ramses Mcpherson Assigned OBGYN 11/07/21 MD Onesimo Provider [address] [place], [place] [phone] Obdulio Barrera MD Critical Care 01/24/[address] [place] [address] Obdulio Barrera, Assigned Pulmonology 02/06/22 Provider [address] [address] Lesvia Stanley EP Cardiac Rehabilitation 03/03/22 03/03/23 [facility] Therapist [address] [id number] Marilia Deluna, PhD Assigned Behavioral 02/20/22 [address] [facility] Health Provider [place], [place] [address] Niyah Decker, [facility] Pharmacist Pharmacist 03/07/22 420 [facility] 812 [place], [place] [phone] Lesvia Stanley EP Cardiac Rehabilitation 03/17/22 03/17/23 [facility] Therapist [address] [place] [address] Delia Avila, Pharmacist Pharmacist 06/07/22 [facility] [address] [place] [address] Mago Swift, [facility] Lead Conditioning Yard Supervisor Orthopedic Technician - 08/05/21 Clinical Niyah Decker, [facility] Assigned MTM 06/25/22 07/29/22 420 [facility] 812 [place] [address] documented as of this encounter
--- OUTSIDE RECORDS SUMMARY | 2022-09-21 04:00 | XMS_ITS | Encounter Summary ---
:1980 Author Organization [facility] Address [address] [place] [address] Care Team Providers Name Role Phone Aydee Burton CASTING ROOM HELPER HOSPITAL MORTICIAN Primary Care Provider [phone] Aydee Burton APRN HOSPITAL MORTICIAN Unavailable [phone] Louisa Hood CASTING ROOM HELPER HOSPITAL MORTICIAN Unavailable [phone] Angel Hannah MD Unavailable Lesly Celaya MD Unavailable Tawana Patel MA Unavailable Unavailable Ramses Mcpherson MD Unavailable [phone] Obdulio Barrera MD Unavailable [phone] Obdulio Barrera MD Unavailable [phone] Lesvia Stanley Unavailable Marilia Deluna PhD Unavailable Niyah Decker [facility] Unavailable Lesvia Stanley Unavailable Delia Avila [facility] Unavailable [phone] Mago Swift [facility] Unavailable Niyah Decker [facility] Unavailable Encounter Details Date Type Department Care Team Description 07/08/2022 Travel Social History Tobacco Use Types Packs/Day [...] er 08/05/2021 How often do you attend gnosticism or yazidi services? Never 08/05/2021 Do you belong to any clubs or organizations such as gnosticism N o 08/05/2021 groups, unions, fraternal or [...] at Date Recorded Female 11/09/2021 7:53 PM EVENT EXECUTIVE COVID-19 Exposure Response Date Recorded In the last 10 days, have you been in contact with No / Unsu re 07/08/2022 6:34 PM CDT someone who was confirmed or suspected to have Coronavirus/COVID-19? documented as of this encounter Plan of Treatment Upcoming Encounters Date Type Specialty Care Team Description 09/26/2022 Appointment Speech Obdulio Medina MD 420 [facility] [address] [place] [address] Anabel Chew, BOOT MAKER [place] [address] [facility] [address] [place] [address] 09/27/2022 Therapy Visit Physical Therapy Luisana Watkins, PT [address] [place] [address] 09/29/2022 Virtual Visit Pain & Palliative Marilia Deluna, Care PhD [address] [place] [address] 09/30/2022 Office Visit Family Practice Aydee Burton, CASTING ROOM HELPER [facility] [address] [place] [address] 10/03/2022 Therapy Visit Physical Therapy Una Reardon, PT [address] [place] [phone] 10/10/2022 Hospital Encounter Surgery Lesly Celaya MD [address] [place], [place] [address] 10/10/2022 Office Visit Surgery Lesly Celaya MD [address] [place] [address] Ninoska Flowers PA-C [address] [place] [address] 10/10/2022 Surgery Surgery Lesly Celaya, EXCISION, MASSES - MD back, abdomen, [address] right lower BL extremity [place], [place] [address] 10/11/2022 Virtual Visit Cara Ruiz, Clari Banks, [facility] [address] [place] [address] 10/14/2022 Appointment Speech Therapy Anabel Chew, BOOT MAKER [address] [address] 10/21/2022 Office Visit Pulmonology Obdulio Barrera MD [address] 8[address] 10/25/2022 PRE VISIT ENT Charo Burton MD Previsit [address] [place] [address] 10/25/2022 Office Visit ENT Charo Burton MD [address] [place], [place] [address] 10/25/2022 Office Visit ENT Provider, 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 Waste Machine Offbearer 10/28/2022 Appointment Speech Therapy Anabel Chew, BOOT MAKER [address] [phone] 11/17/2022 Appointment Speech Therapy Anabel Chew BOOT MAKER [address] [address] 12/23/2022 Office Visit Neurology Colby Yeung MD [address] 729245 Scheduled Procedures Name Priority Associated Diagnoses Date/Time EXCISION, MASS, TORSO Lipoma of skin and subcuta neous 10/10/2022 7:30 AM EVENT EXECUTIVE tissue documented as of this encounter Goals Goal Patient Goal Associated Recent Patient-Stated? Author Type Problems Progress Attend Speciality Care Plan Establish Care 50% No Ahe rn, Appointments (08/29/2022 Mago Murray, (GUITAR TECHNICIAN, 3:24 PM CDT) [facility] Psychiatry, Counseling, and the Sleep Clinic) Note: Formatting of this note is differe nt from the original. Barriers: Appointment availability. Strengths: Recognition of need, Care Community Affairs Director rdination involvement. Patient expressed understanding of [...] 08/16/2022 9:45 AM Lesly Celaya MD [facility] [place] To address painful lumps in my abdomin [...] documented as of this encounter Care Teams Information Specialist Relationship Specialty Start Date End Date Aydee Burton, PCP - General Nurse Practitioner - 05/17/21 CASTING ROOM HELPER HOSPITAL MORTICIAN Family [address] [place], [place] [phone] Aydee Burton, Assigned PCP 04/28/21 CASTING ROOM HELPER HOSPITAL MORTICIAN [address] [place], [place] [phone] Louisa Hood, Assigned Neuroscience 07/11/21 CASTING ROOM HELPER HOSPITAL MORTICIAN Provider [address] [place], [place] [phone] [place], Assigned Sleep 08/01/21 Angel Turcios, Provider [address] [place], [place] [phone] Lesly Celaya MD Assigned Surgical 09/05/21 [address] [place] [place] [address] Tawana Patel MA [facility] 09/30/21 Worker Ramses Mcpherson Assigned OBGYN 11/07/21 MD Onesimo Provider [address] [place] [address] Obdulio Barrera MD Critical Care 01/24/22 420 [facility] [address] [place], [place] [phone] Obdulio Barrera, Assigned Pulmonology 02/06/22 MD Provider 420 [facility] [address] [place], [place] [address] Lesvia Stanley, EP Cardiac Rehabilitation 03/03/22 03/03/23 [facility] Therapist [address] [place] [address] Marliia Deluna, PhD Assigned Behavioral 02/20/22 [address] [facility] [place] [place] [address] Niyah Decker, [facility] Pharmacist Pharmacist 03/07/[address] [place] [address] 812 [place], [place] [address] Lesvia Stanley, GHADA Cardiac Rehabilitation 03/17/22 03/17/23 [facility] Therapist [address] [place] [address] Delia Avila, Pharmacist Pharmacist 06/07/22 [facility] [address] [place] [address] Mago Swift, [facility] Lead Gun Fitter Eyeglass Maker - 08/05/21 Clinical Niyah Decker, [facility] Assigned MTM 06/25/22 07/29/[address] [place] [address] 812 [place] [address] documented as of this encounter
--- OUTSIDE RECORDS SUMMARY | 2022-09-21 04:00 | XMS_ITS | Encounter Summary ---
:1980 Author Organization [facility] [place] Address [address] [place] [address] Care Team Providers Name Role Phone Aydee Burton WOOD CALKER GENDER STUDIES PROFESSOR Primary Care Provider [phone] Aydee Burton APRN GENDER STUDIES PROFESSOR Unavailable [phone] Louisa Hood WOOD CALKER GENDER STUDIES PROFESSOR Unavailable [phone] Angel Hannah MD Unavailable Lesly Celaya MD Unavailable Tawana Patel MA Unavailable Unavailable Ramses Mcpherson MD Unavailable [phone] Obdulio Barrera MD Unavailable [phone] Obdulio Barrera MD Unavailable [phone] Lesvia Stanley Unavailable Marilia Deluna PhD Unavailable Niyah Decker [facility] Unavailable Lesvia Stanley Unavailable Delia Avila [facility] Unavailable [phone] Mago Swift [facility] Unavailable Niyah Decker [facility] Unavailable Encounter Details Date Type Department Care Team Description 06/30/2022 Travel Social History Tobacco Use Types Packs/Day [...] er 08/05/2021 How often do you attend zoroastrian or druze services? Never 08/05/2021 Do you belong to any clubs or organizations such as zoroastrian N o 08/05/2021 groups, unions, fraternal or [...] at Date Recorded Female 11/09/2021 7:53 PM REPORTING DEVELOPER COVID-19 Exposure Response Date Recorded In the last 10 days, have you been in contact with No / Unsu re 06/30/2022 7:55 AM CDT someone who was confirmed or suspected to have Coronavirus/COVID-19? documented as of this encounter Plan of Treatment Upcoming Encounters Date Type Specialty Care Team Description 09/26/2022 Appointment Speech Obdulio Medina MD 420 [facility] 276 [place] [address] Anabel Chew, INSURANCE CLAIM REPRESENTATIVE [place] [address] [facility] 396 [place] [address] 09/27/2022 Therapy Visit Physical Therapy Luisana Watkins, PT [address] [place] [address] 09/29/2022 Virtual Visit Pain & Palliative Marilia Deluna, Care PhD [address] [place] [address] 09/30/2022 Office Visit Family Practice Aydee Burton, WOOD CALKER [facility] [address] [place] [address] 10/03/2022 Therapy Visit Physical Therapy Una Reardon, PT [address] [place] [phone] 10/10/2022 Hospital Encounter Surgery Lesly Celyaa MD [address] [place], [place] [address] 10/10/2022 Office Visit Surgery Lesly Celaya MD [address] [place] [address] Ninoska Flowers PA-C [address] [place] [address] 10/10/2022 Surgery Surgery Lesly Celaya, EXCISION, MASSES - MD back, abdomen, [address] right lower BL extremity [place], [place] [address] 10/11/2022 Virtual Visit Cara Ruiz, Clari Banks, [facility] [address] [place] [address] 10/14/2022 Appointment Speech Therapy Anabel Chew, INSURANCE CLAIM REPRESENTATIVE [address] [address] 10/21/2022 Office Visit Pulmonology Obdulio Barrera MD [address] [address] 10/25/2022 PRE VISIT ENT Charo Burton MD Previsit [address] [place] [address]29815 10/25/2022 Office Visit ENT Charo Burton MD 909 [place], [place] [address] 10/25/2022 Office Visit ENT Provider, 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 Entry Level Project Engineer 10/28/2022 Appointment Speech Therapy Anabel Chew, INSURANCE CLAIM REPRESENTATIVE [address] [address] 11/17/2022 Appointment Speech Therapy Anabel Chew, INSURANCE CLAIM REPRESENTATIVE [address] [address] 12/23/2022 Office Visit Neurology Colby Yeung MD [address] [id number] Scheduled Procedures Name Priority Associated Diagnoses Date/Time EXCISION, MASS, TORSO Lipoma of skin and subcuta neous 10/10/2022 7:30 AM REPORTING DEVELOPER tissue documented as of this encounter Visit Diagnoses Not on filedocumented in this encounter Additional Health Concerns Assessment Noted Time PHQ-9 Depression Total Score: 16 06/24/2022 9:31 AM CD T documented as of this encounter Care Teams Curtain Supervisor Relationship Specialty Start Date End Date Aydee Burton, PCP - General Nurse Practitioner - 05/17/21 WOOD CALKER GENDER STUDIES PROFESSOR Family [address] [place] [address]42 Aydee Burton, Assigned PCP 04/28/21 WOOD CALKER GENDER STUDIES PROFESSOR [address] [place], [place] [phone] Louisa Hood, Assigned Neuroscience 07/11/21 WOOD CALKER GENDER STUDIES PROFESSOR Provider 500 [place] [address] [place], Assigned Sleep 08/01/21 Angel Turcios, Provider [address] [place] [address] Lesly Celaya MD Assigned Surgical 09/05/21 [address] [place] [address] Tawana Patel [facility] 09/30/21 Worker Ramses Mcpherson Assigned OBGYN 11/07/21 MD Onesimo Provider [address] [place] [address] Obdulio Barrera MD Critical Care 01/24/[address] [place] [address] Obdulio Barrera, Assigned Pulmonology 02/06/22 Provider [address] [address] Lesvia Stanley EP Cardiac Rehabilitation 03/03/22 03/03/23 [facility] [address] [place] [address] Marilia Deluna, PhD Assigned Behavioral 02/20/22 [address] [facility] [place] [address] Niyah Decker, [facility] Pharmacist Pharmacist 03/07/22 420 [facility] 812 [place] [address] Lesvia Stanley EP Cardiac Rehabilitation 03/17/22 03/17/23 [facility] Therapist [address] [id number] Delia Avila, Pharmacist Pharmacist 06/07/22 [facility] [address] [place] [address] Mago Swift, [facility] Lead Map Maker Shell Press Operator - 08/05/21 Clinical Niyah Decker, [facility] Assigned MTM 06/25/22 07/29/22 420 [facility] 812 [place] [address] documented as of this encounter
--- OUTSIDE RECORDS SUMMARY | 2022-09-21 04:01 | XMS_ITS | Encounter Summary ---
:1980 Author Organization [facility] Address [address] [place] [address] Care Team Providers Name Role Phone Aydee Burton STEEL LAYOUT WORKER RIVET SPINNER Primary Care Provider Aydee Burton APRN RIVET SPINNER Unavailable [phone] Louisa Hood STEEL LAYOUT WORKER RIVET SPINNER Unavailable [phone] Angel Hannah MD Unavailable Lesly Celaya MD Unavailable Tawana Patel MA Unavailable Unavailable Ramses Mcpherson MD Unavailable [phone] Obdulio Barrera MD Unavailable [phone] Obdulio Barrera MD Unavailable [phone] Lesvia Stanley Unavailable Marilia Deluna PhD Unavailable [facility] Decker [facility] Unavailable Lesvia Stanley Unavailable Niyah Warner RN Unavailable Delia Avila [facility] Unavailable [phone] Delia Avila [facility] Unavailable [phone] JamisonMago [facility] Unavailable Encounter Details Date Type Department Care Team Description 06/24/2022 Travel Social History Tobacco Use Types Packs/Day [...] How often do you attend restorationism or sikh services? Never 08/05/2021 Do you belong to [...] at Date Recorded Female 11/09/2021 7:53 PM PHOTORESIST PRINTER COVID-19 Exposure Response Date Recorded In the last 10 days, have you been in contact with No / Unsu re 06/24/2022 9:26 AM CDT someone who was confirmed or suspected to have Coronavirus/COVID-19? documented as of this encounter Plan of Treatment Upcoming Encounters Date Type Specialty Care Team Description 09/26/2022 Appointment Speech Therapy Obdulio Barrera MD [address] [facility] [address] [place], [place] [address] Anabel Chew, RN FIRST ASSISTANT [facility] [address] [facility] [address] [place] [address] 09/27/2022 Therapy Visit Physical Therapy Luisana Watkins, PT [address] [place] [address] 09/29/2022 Virtual Visit Pain & Palliative Marilia Deluna, [facility] PhD [address] [place], [place] [address] 09/30/2022 Office Visit Family Practice Aydee Burton, STEEL LAYOUT WORKER RIVET SPINNER [address] [place] [address] [id number] 10/03/2022 Therapy Visit Physical Therapy Una Reardon, PT [address] [place] [address] 10/10/2022 Hospital Encounter Surgery Lesly Celaya MD [address] [place], [place] [address] 10/10/2022 Office Visit Surgery Lesly Celaya MD [address] [place], [place] [address] Ninoska Flowers PA-C [address] [facility] [address] [place] [address] 10/10/2022 Surgery Surgery Lesly Celaya, EXCISION, MASSES - MD back, abdomen, [address] right lower [facility] extremity [place], [place] [id number] 10/11/2022 Virtual Visit Clari Su, [facility] [address] [place] [address] 10/14/2022 Appointment Speech Therapy Anabel Chew, RN FIRST ASSISTANT [address] [address] 10/21/2022 Office Visit Pulmonology Obdulio Barrera MD [address] [address] 10/25/2022 PRE VISIT ENT Charo Burton MD Previsit 9 [place], [place] [address] 10/25/2022 Office Visit ENT Charo Burton MD [address] [place], [place] [address] 10/25/2022 Office Visit ENT Provider, 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 Screw Machine Setter 10/28/2022 Appointment Speech Therapy Anabel Chew, CELINE [address] [address] 11/17/2022 Appointment Speech Therapy Anabel Chew SLP [address] [address] 12/23/2022 Office Visit Neurology Colby Yeung MD [address] [id number] Scheduled Procedures Name Priority Associated Diagnoses Date/Time EXCISION, MASS, TORSO Lipoma of skin and subcuta neous 10/10/2022 7:30 AM PHOTORESIST PRINTER tissue documented as of this encounter Visit Diagnoses Not on filedocumented in this encounter Additional Health Concerns Assessment Noted Time PHQ-9 Depression Total Score: 16 06/24/2022 9:31 AM CD T documented as of this encounter Care Teams Senior Education Specialist Relationship Specialty Start Date End Date Aydee Burton, PCP - General Nurse Practitioner - 05/17/21 STEEL LAYOUT WORKER RIVET SPINNER Family [address] [place], [place] [phone] Aydee Burton, Assigned PCP 04/28/21 STEEL LAYOUT WORKER RIVET SPINNER [address] [place], [place] [address] Louisa Hood, Assigned Neuroscience 07/11/21 STEEL LAYOUT WORKER RIVET SPINNER Provider [address] [place], [place] [address] [place], Assigned Sleep 08/01/21 Angel Turcios, Provider [address] [place], [place] [address] Lesly Celaya MD Assigned Surgical 09/05/21 [address] Provider [place], [place] [phone] Tawana Patel [facility] 09/30/21 Worker Ramses Mcpherson Assigned OBGYN 11/07/21 MD Onesimo Provider [address] [place], [place] [address] Obdulio Barrera MD Critical Care 01/24/[address] [place] [address] [phone] Obdulio Barrera, Assigned Pulmonology 02/06/22 MD Provider [address] [phone] Lesvia Stanley, EP Cardiac Rehabilitation 03/03/22 03/03/23 [facility] Therapist [address] [id number] Marilia Deluna, PhD Assigned Behavioral 02/20/22 [address] [facility] Health Provider [place], [place] [address] Niyah Decker, [facility] Pharmacist Pharmacist 03/07/[address] [place] [address] 8[address] [place], [place] [address] Lesvia Stanley, EP Cardiac Rehabilitation 03/17/22 03/17/23 [facility] Therapist [address] [id number] Niyah Warner, Lead Helper Driver Primary Care - CC 06/27/22 RN Delia Avila, Pharmacist Pharmacist 06/07/[address] [address] Delia Avila, Assigned [place] 06/11/2206/24 [facility] Pharmacist [address] [place] [address] Mago Swift, [facility] Lead Helper Driver Leather Belt Shaper - 08/05/21 Clinical documented as of this encounter
--- OUTSIDE RECORDS SUMMARY | 2022-09-21 04:01 | XMS_ITS | Encounter Summary ---
:1980 Author Organization [facility] Address [address] [place] [address] Care Team Providers Name Role Phone Aydee Burton DAIRY FEED WORKER SERVICE RESTORER EMERGENCY Primary Care Provider Aydee Burton APRN SERVICE RESTORER EMERGENCY Unavailable [phone] Louisa Hood DAIRY FEED WORKER SERVICE RESTORER EMERGENCY Unavailable [phone] Angel Hannah MD Unavailable Lesly Celaya MD Unavailable Tawana Patel MA Unavailable Unavailable Ramses Mcpherson MD Unavailable Obdulio Barrera MD Unavailable [phone] Obdulio Barrera MD Unavailable [phone] Lesvia Stanley Unavailable Marilia Deluna PhD Unavailable Niyah Decker [facility] Unavailable Lesvia Stanley Unavailable Niyah Warner RN Unavailable Delia Avila [facility] Unavailable [phone] Delia Avila [facility] Unavailable [phone] JamisonMago [facility] Unavailable Encounter Details Date Type Department Care Team Description 06/16/2022 Travel Social History Tobacco Use Types Packs/Day [...] er 08/05/2021 How often do you attend taoist or mandaen services? Never 08/05/2021 Do you belong to any clubs or organizations such as taoist N o 08/05/2021 groups, unions, fraternal or [...] at Date Recorded Female 11/09/2021 7:53 PM TIMBER ESTIMATOR COVID-19 Exposure Response Date Recorded In the last 10 days, have you been in contact with No / Unsu re 06/16/2022 4:05 PM CDT someone who was confirmed or suspected to have Coronavirus/COVID-19? documented as of this encounter Plan of Treatment Upcoming Encounters Date Type Specialty Care Team Description 09/26/2022 Appointment Speech Therapy Obdulio Barrera MD 420 [facility] 276 [place], [place] [address] Anabel Chew, CHARGER TESTER [facility] 516 [facility] 396 [place] [address] 09/27/2022 Therapy Visit Physical Therapy Luisana Watkins, PT [address] [place] [address] 09/29/2022 Virtual Visit Pain & Palliative Marilia Deluna, [facility] PhD [address] [place], [place] [address] 09/30/2022 Office Visit Family Practice Aydee Burton, DAIRY FEED WORKER SERVICE RESTORER EMERGENCY [address] [place] [phone] 10/03/2022 Therapy Visit Physical Therapy Una Reardon, PT [address] [place] [address] 10/10/2022 Hospital Encounter Surgery Lesly Celaya MD [address] [place], [place] [address] 10/10/2022 Office Visit Surgery Lesly Celaya MD [address] [place], [place] [address] Ninoska Flowers PA-C [address] [facility] 300 [place] [address] 10/10/2022 Surgery Surgery Lesly Celaya, EXCISION, MASSES - MD back, abdomen, [address] right lower [facility] extremity [place], [place] [phone] 10/11/2022 Virtual Visit Clari Su, [facility] [address] [place] [address] 10/14/2022 Appointment Speech Therapy Anabel Chew, CHARGER TESTER [address] [address] 10/21/2022 Office Visit Pulmonology Obdulio Barrera MD [address] [address] 10/25/2022 PRE VISIT ENT Charo Burton MD Previsit 9 [place], [place] [address] 10/25/2022 Office Visit ENT Charo Burton MD [address] [place], [place] [address] 10/25/2022 Office Visit ENT Provider, 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 Narcotics And Vice Detective 10/28/2022 Appointment Speech Therapy Anabel Chew, CELINE [address] [address] 11/17/2022 Appointment Speech Therapy Anabel Chew SLP [address] [address] 12/23/2022 Office Visit Neurology Colby Yeung MD [address] [id number] Scheduled Procedures Name Priority Associated Diagnoses Date/Time EXCISION, MASS, TORSO Lipoma of skin and subcuta neous 10/10/2022 7:30 AM TIMBER ESTIMATOR tissue documented as of this encounter Visit Diagnoses Not on filedocumented in this encounter Additional Health Concerns Assessment Noted Time PHQ-9 Depression Total Score: 19 06/14/2022 3:18 PM CD T documented as of this encounter Care Teams Collet Making Machine Operator Relationship Specialty Start Date End Date Aydee Burton, PCP - General Nurse Practitioner - 05/17/21 DAIRY FEED WORKER SERVICE RESTORER EMERGENCY Family [address] [place], [place] [phone] Aydee Burton, Assigned PCP 04/28/21 DAIRY FEED WORKER SERVICE RESTORER EMERGENCY [address] [place], [place] [phone] Louisa Hood, Assigned Neuroscience 07/11/21 DAIRY FEED WORKER SERVICE RESTORER EMERGENCY Provider [address] [place], [place] [address] [place], Assigned Sleep 08/01/21 Angel Turcios, Provider [address] [place], [place] [address] Lesly Celaya MD Assigned Surgical 09/05/21 [address] Provider [place], [place] [address] Tawana Patel Critical access hospital 09/30/21 Worker Ramses Mcpherson Assigned OBGYN 11/07/21 MD Onesimo Provider [address] [place], [place] [address] Obdulio Barrera MD Critical Care 01/24/[address] [place] [id number] Obdulio Barrera, Assigned Pulmonology 02/06/22 MD Provider [address] [phone] Lesvia Stanley, EP Cardiac Rehabilitation 03/03/22 03/03/23 [facility] Therapist [address] [id number] Marilia Deluna, PhD Assigned Behavioral 02/20/22 [address] [facility] Health Provider [place], [place] [address] Niyah Decker, [facility] Pharmacist Pharmacist 03/07/[address] [place] [address] 812 [place], [place] [address] Lesvia Stanley, EP Cardiac Rehabilitation 03/17/22 03/17/23 [facility] Therapist [address] [id number] Niyah Warner, Lead Senior Stereo Compiler Team Lead Primary Care - CC 06/27/22 RN Delia Avila, Pharmacist Pharmacist 06/07/[address] [address] Delia Avila, Assigned [place] 06/11/2206/24 [facility] Pharmacist [address] [place] [address] Mago Swift, [facility] Lead Senior Stereo Compiler Team Lead Regional Marketing Director - 08/05/21 Clinical documented as of this encounter
--- OUTSIDE RECORDS SUMMARY | 2022-09-21 04:01 | XMS_ITS | Encounter Summary ---
:1980 Author Organization [facility] Address [address] [place] [address] Care Team Providers Name Role Phone Aydee Burton SENIOR HEALTH PHYSICS TECHNICIAN SIGNS CLEANER Primary Care Provider Aydee Burton APRN SIGNS CLEANER Unavailable [phone] Louisa Hood SENIOR HEALTH PHYSICS TECHNICIAN SIGNS CLEANER Unavailable [phone] Angel Hannah MD Unavailable Lesly Celaya MD Unavailable Tawana Patel MA Unavailable Unavailable Ramses Mcpherson MD Unavailable [phone] Obdulio Barrera MD Unavailable [phone] Obdulio Barrera MD Unavailable [phone] Lesvia Stanley Unavailable Marilia Deluna PhD Unavailable Niyah Decker [facility] Unavailable Clari Poole [facility] Unavailable Lesvia Stanley EP Unavailable Niyah Warner RN Unavailable Delia Avila [facility] Unavailable [phone] Delia Avila [facility] Unavailable [phone] Mago Swift [facility] Unavailable Reason for Referral Diagnostic Imaging Ultrasound (Routine) - Pending Review Specialty Diagnoses / Procedures Referred By Contact Refer red To Contact Diagnoses Enlarged thyroid Aydee Burton APRN Procedures US Thyroid SIGNS CLEANER [address] [place] [address] Referral ID Status Reason Start Date Expiration Date Visits V isits Requested Authorized [id number] Pending 06/14/2022 06/14/2023 1 1 Review Diagnostic Procedure Outpatient (Routine: Next available opening) - Closed Specialty Diagnoses / Procedures Referred By Contact Refer red To Contact Gastroenterology Diagnoses Gastroesophageal reflux disease without esophagitis Nauseated Chronic cough Laryngitis Aydee Burton APRN SIGNS CLEANER [address] [place] [address] Referral ID Status Reason Start Date Expiration Date Visits Requ ested Visits Authorized [id number] Closed 06/14/2022 06/14/2023 1 1 Reason for Visit Reason Comments Chest Pain Encounter Details Date Type Department Care Team Description 06/14/2022 Office Visit [facility] Aydee Burton Chest pain , unspecified type (Primary Dx); [facility] [place] SOB (shortness of breath); [facility] HANANE Palpitations; [address] [place] [address] Gastroesophageal reflux dise ase without esophagitis; [place], [place] Nauseated; [id number] [place], [place] Chronic cough; [phone] Laryngitis; [phone] Epigastric pain ; (Work) Enlarged thyroid Social History Tobacco Use Types Packs/Day Years [...] er 08/05/2021 How often do you attend shinto or druze services? 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 documented as of this encounter Last Filed Vital Signs Vital Sign Reading Time Taken Comments Blood Pressure 110/88 06/14/2022 3:05 PM CDT Pulse 115 06/14/2022 3:05 PM CDT Temperature 36.9 ??C (98.4 ??F) 06/14/2022 3:05 PM CDT Respiratory Rate - - Oxygen Saturation 98% 06/14/2022 3:05 PM CDT Inhaled Oxygen Concentration - - Weight 95.3 kg (210 lb) 06/14/2022 3:05 PM CDT Height 170.2 cm (5' 7) 06/14/2022 3:05 PM CDT Body Mass Index 32.89 06/14/2022 3:05 PM CDT documented in this encounter Patient Instructions AttachmentsThe following attachments cannot be sent through Care Everywhere. Chest Pain, Noncardiac ([place])GERD (Adult) ([place])documented in this encounter Progress Notes Aydee Burton APRN CNP - 06/14/2022 3:10 PM CDT Images from the original note were not included. Assessment & Plan Chest pain, unspecified type SOB (shortness of breath) Palpitations Long standing no changes. Reassuring exam no higher level of care felt to be needed. EKG unchanged. Continue to monitor. Treat GERD; upper endoscopy. I still feel like part of her symptoms could be coming from polypharmacy. She has had some improvement with decreasing the amount of gabapentin a day. She has met with [facility] multiple times. They have notprovided recommendations as many medications are prescribed by psych provider. She has psych provider follow-up in the upcoming months. Red flag symptoms discussed and if these occur present to the emergency room or call 911. Follow up for physical. Marta verbalizes understanding of plan of care and is in agreement. - EKG 12-lead complete w/read - Clinics Gastroesophageal reflux disease without esophagitis Continue omeprazole. - Adult GI Lithograph Printer Referral - Procedure Only Nauseated - Adult GI Lithograph Printer Referral - Procedure Only - Helicobacter pylori Antigen Stool - Helicobacter pylori Antigen Stool Chronic cough Laryngitis - Adult GI Lithograph Printer Referral - Procedure Only Epigastric pain - Helicobacter pylori Antigen Stool - Helicobacter pylori Antigen Stool Enlarged thyroid - US Thyroid Return in about 10 days (around 06/24/2022) for Wellness exam fasting labs. Aydee Burton APRN CNP [facility] Marta is a 42 year old presenting for the following health issues: No chief complaint on file. History of Present Illness Reason for visit: Chest discomfort/fluttering/pressure/out of breath Symptom onset: 3-7 days ago Symptoms include: See above plus more coughing Symptom intensity: Moderate Symptom progression: Worsening Had these symptoms before: Yes Has tried/received treatment for these symptoms: Yes Previous treatment was successful: Yes Prior treatment description: Meds. Still taking What makes it worse: Exercise. Walking fast. Stairs. Bending. Getting up. Etc What makes it better: Rest She eats 2-3 servings of fruits and vegetables daily.She consumes 2 sweetened beverage(s) daily.She exercises with enough effort to increase her heart rate 9 or less minutes per day. She exercises withenough effort to increase her heart rate 7 days per week. She is taking medications regularly. Today's PHQ-9 PHQ-9 Total Score: 19 PHQ-9 Q9 Thoughts of better off /self-harm past 2 weeks : Not at all How difficult have these problems made it for you to do your work, take care of things at home, or get along with other people: Somewhat difficult Today's SHAMEKA-7 Score: 7 Longstanding array of symptoms. Multiple work ups labs, imaging, pulmonology ENT. 06/01/22 date of onset of symptoms. SOB Saws [facility] they don't want to do any Med choices-discussed with Marta they wonder about ? Implant illness due to all her symptoms. Review of Systems Constitutional, HEENT, cardiovascular, pulmonary, GI, , musculoskeletal, neuro, skin, endocrine and psych systems are negative, except as otherwise noted in the HPI. Objective LMP 12/11/2021 (Exact Date) There is no height or weight on file to calculate BMI. Physical Exam GENERAL: healthy, alert and no distress EYES: Eyes grossly normal to inspection, PERRL and conjunctivae and sclerae normal HENT: ear canals and TM's normal, nose and mouth without ulcers or lesions NECK: no adenopathy, no asymmetry, masses, or scars and thyroid non tender to palpation ? Enlarged versus habitus. RESP: lungs clear to auscultation - no rales, rhonchi or wheezes CV: regular rate and rhythm, normal S1 S2, no S3 or S4, no murmur, click or rub, no peripheral edemaand peripheral pulses strong ABDOMEN: soft, nontender, no hepatosplenomegaly, no masses and bowel sounds normal MS: no gross musculoskeletal defects noted, no edema SKIN: no suspicious lesions or rashes NEURO: Normal strength and tone, mentation intact and speech normal PSYCH: mentation appears normal, affect normal/bright Results for orders placed or performed in visit on 06/14/22 Helicobacter pylori Antigen Stool Status: Normal Result Value Ref Range Helicobacter pylori Antigen Stool Negative Negative documented in this encounter Miscellaneous Notes Result Encounter Note - Aydee Burton APRN CNP - 06/14/2022 3:10 PM CDT Dear Marta, Here is a summary of your recent test results: Hpylori bacteria is negative. For additional lab test information, labtestsonline.org is an excellent reference. In addition, here is a list of due or overdue Health Maintenance reminders: Asthma Action Plan - yearly Never done Preventive Care Visit due on 06/11/2022 Please call us at [phone] (or use eeden) to address the above recommendations if needed. Thank you for choosing [facility]. It was an honor and a privilege to participate in your care. Healthy regards, TARA Spivey [facility] documented in this encounter Plan of Treatment Upcoming Encounters Date Type Specialty Care Team Description 09/26/2022 Appointment Speech Therapy Obdulio Barrera MD [address] [facility] [address] [place], [place] [phone] Aanbel Chew, GOVERNMENT RELATIONS MANAGER [facility] [address] [facility] [address] [place], [place] [phone] 09/27/2022 Therapy Visit Physical Therapy Luisana Watkins, PT [address] [place] [address] 09/29/2022 Virtual Visit Pain & Palliative Marilia Deluna, Ronald PhD [address] [place] [address] 09/30/2022 Office Visit Family Practice Aydee Burton APRN SIGNS CLEANER [address] [place] [address] 10/03/2022 Therapy Visit Physical Therapy Una Reardon, PT [address] [place] [phone] 10/10/2022 Hospital Encounter Surgery Lesly Celaya MD [address] [place], [place] [id number] 10/10/2022 Office Visit Surgery Lesly Celaya MD [address] [place] [address] Ninoska Flowers, PA-C [address] [place] [address] 10/10/2022 Surgery Surgery Lesly Celaya, EXCISION, MASSES - MD back, abdomen, [address] [place] [address] 10/11/2022 Virtual Visit Clari Su, [facility] [address] [id number] [place], [place] [address] 10/14/2022 Appointment Speech Therapy Anabel Chew, GOVERNMENT RELATIONS MANAGER [facility] [address] [facility] [address] [place], [place] [address] 10/21/2022 Office Visit Pulmonology Obdulio Barrera MD [address] [facility] [address] [place], [place] [address] 10/25/2022 PRE VISIT ENT Charo Burton MD Previsit [address] [place] [address] 10/25/2022 Office Visit ENT Charo Burton MD [address] [place], [place] [address] 10/25/2022 Office Visit ENT Provider, Jeannette 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 E Commerce Marketing Manager 10/28/2022 Appointment Speech Therapy Anabel Chew, CELINE [address] [address] 11/17/2022 Appointment Speech Therapy Anabel Chew SLP [address] [id number] 12/23/2022 Office Visit Neurology Colby Yeung MD [address] [place] [address] Scheduled Procedures Name Priority Associated Diagnoses Date/Time EXCISION, MASS, TORSO Lipoma of skin and subcuta neous 10/10/2022 7:30 AM PRINTED [employer]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 EKG 12-LEAD COMPLETE Routine 06/14/2022 Chest pain, Results for this W/READ - CLINICS unspecified type procedu re are in the results section. documented in this encounter Results US Thyroid (06/16/2022 5:27 PM CDT) Anatomical Region Laterality Modality Head Ultrasound Specimen (Source) Anatomical Collection Method Collection Time Re ceived Time Location / / Volume Laterality 06/16/2022 5:03 PM CDT Impressions 06/16/2022 9:41 PM CDT IMPRESSION: Unremarkable thyroid ultrasound examination. No evidence for thyroid gland enlargement. No thyroid masses. Nodules are characterized per ACR Thyroid Imaging, Reporting and Data System (TI-RADS): White Paper of the ACR TI-RADS Committee Ton Reyes et al. Journal of t he [place] [employer] 2017. Volume 14 (2017), Issue 5, 800-470. Narrative 06/16/2022 9:41 PM CDT EXAM: US THYROID LOCATION: [facility] DATE/TIME: 06/16/2022 5:03 PM INDICATION: Thyroid gland enlargement. COMPARISON: None. TECHNIQUE: Thyroid ultrasound. FINDINGS: RIGHT lobe: 5.4 x 1.4 x 1.5 cm. Homogene ous echotexture. Isthmus: 1 mm. LEFT lobe: 5.1 x 1.2 x 1.5 cm. Homogeneo us echotexture. NODULES: No discrete thyroid nodules or masses are identified. Tiny benign right thyroid cyst. Procedure Note Obdulio Carter MD - 06/16/2022Forma tting of this note might be different from the original. EXAM: US THYROID LOCATION: [facility] DATE/TIME: 06/16/2022 5:03 PM INDICATION: Thyroid gland enlargement. COMPARISON: None. TECHNIQUE: Thyroid ultrasound. FINDINGS: RIGHT lobe: 5.4 x 1.4 x 1.5 cm. Homogene ous echotexture. Isthmus: 1 mm. LEFT lobe: 5.1 x 1.2 x 1.5 cm. Homogeneo us echotexture. NODULES: No discrete thyroid nodules or masses are identified. Tiny benign right thyroid cyst. IMPRESSION: Unremarkable thyroid ultraso und examination. No evidence for thyroid gland enlargement. No thyroid masses. Nodules are characterized per ACR Thyroid Imaging, Reporting and Data System (TI-RADS): White Paper of the ACR TI-RADS Committee Ton Reyes. et al. Journal of t he [place] [employer] 2017. Volume 14 (2017), Issue 5, 289-066. Aydee Burton SENIOR HEALTH PHYSICS TECHNICIAN SIGNS CLEANER IMG US ORDERABLES Helicobacter pylori Antigen Stool (06/16/2022 4:08 PM CDT) Patholo gist Method Time Signature Helicobacter Negative Negative 06/20/2022 SPECIALTY pylori Antigen 12:24 PM CDT CORE/PROT/EN D Stool O Comment: Negative for Helicobacter pylor i antigen by enzyme immunoassay. A negative result indicates the absence of H. pylor i antigen or that the level of antigen is below the level of detection. Specimen Anatomical Collection Method Collection Time Receive d Time (Source) Location / / Volume Laterality Stool RECTAL CONTENTS / Non-blood 06/16/2022 4:08 PM 08/0 02/2022 4:08 Unknown Collection / CDT PM CDT Unknown Aydee Burton APRN, CNP LAB - STOOLS ORDERABLES Performing Organization Address City/State/ZIP Code Phon e Number [facility] CORE/PROT/ENDO Specialty [place], [place] [address] Core/Prot/Endo [address] [facility] [address] Building, Room 3-580 EKG 12-lead complete w/read - Clinics (06/14/2022) Narrative This result has an attachment that is no t available. Aydee Burton APRN [facility] ECG ORDERABLES documented in this encounter Visit Diagnoses Diagnosis Chest pain, unspecified type - Primary SOB (shortness of breath) Shortness of breath Palpitations Gastroesophageal reflux disease without esophagitis Esophageal reflux Nauseated Nausea alone Chronic cough Cough Laryngitis Acute laryngitis, without mention of obs truction Epigastric pain Abdominal pain, epigastric Enlarged thyroid Goiter, unspecified Enlarged thyroid Goiter, unspecified Lipoma of skin and subcutaneous tissue Lipoma of other skin and subcutaneous ti ssue documented in this encounter Additional Health Concerns Assessment Noted Time PHQ-9 Depression Total Score: 19 06/14/2022 3:18 PM CD T documented as of this encounter Care Teams Alum Operator Relationship Specialty Start Date End Date Aydee Burton, PCP - General Nurse Practitioner - 05/17/21 SENIOR HEALTH PHYSICS TECHNICIAN [place]NA[place] Family [address] [place], [place] [address] Aydee Burton, Assigned PCP 04/28/21 SENIOR HEALTH PHYSICS TECHNICIAN SIGNS CLEANER [address] [place], [place] [address] Louisa Hood, Assigned Neuroscience 07/11/21 SENIOR HEALTH PHYSICS TECHNICIAN SIGNS CLEANER Provider [address] [place] [address] [place], Assigned Sleep 08/01/21 Angel Turcios, Provider [address] [place], [place] [address] Lesly Celaya MD Assigned Surgical 09/05/21 [address] [facility] Provider [place], [place] [address] Tawana Patel MA [facility] 09/30/21 Worker Ramses Mcpherson Assigned OBGYN 11/07/21 MD Onesimo Provider [address] [place] [address] Obdulio Barrera MD Critical Care 01/24/22 MD [address] [facility] [address] [place], [place] [address] Obdulio Barrera, Assigned Pulmonology 02/06/22 Provider [address] [facility] [address] [place], [place] [address] Lesvia Stanley, GHADA Cardiac Rehabilitation 03/03/22 03/03/23 [facility] Therapist [address] [facility] [address] [place], [place] [address] Marilia Deluna, PhD Assigned Behavioral 02/20/22 [address] [facility] Provider [place], [place] [phone] Niyah Decker, [facility] Pharmacist Pharmacist 03/07/22 [address] [facility] [address] [place], [place] [address] Clari Poole, Pharmacist Pharmacist 03/07/22 06/15/22 [facility] [address] [facility] [address] [place], [place] [address] Lesvia Stanley EP Cardiac Rehabilitation 03/17/22 03/17/23 [facility] Therapist [address] [place] [address] Niyah Warner, Lead Chuck Wagon Cook Primary Care - CC 06/27/22 RN Delia Avila, Pharmacist Pharmacist 06/07/22 [facility] [address] [place] [address] Delia Avila, Assigned MTM 06/11/2206/24 [facility] Pharmacist [address] [place] [address] Mago Swift [facility] Lead Chuck Wagon Cook Film Casting Operator - 08/05/21 Clinical documented as of this encounter
--- OUTSIDE RECORDS SUMMARY | 2022-09-21 04:01 | XMS_ITS | Encounter Summary ---
:1980 Author Organization [place] Address [address] [place] [address] Care Team Providers Name Role Phone Aydee Burton [employer] Primary Care Provider [phone] Aydee Burton APRN [employer] Unavailable [phone] Louisa Hood [employer] Unavailable [phone] Angel Hannah MD Unavailable Lesly Celaya MD Unavailable Tawana Patel MA Unavailable Unavailable Ramses Mcpherson MD Unavailable [phone] Obdulio Barrera MD Unavailable [phone] Obdulio Barrera MD Unavailable [phone] Lesvia Stanley Unavailable Marilia Deluna PhD Unavailable Niyah Decker [facility] Unavailable Lesvia Stanley Unavailable Delia Avila [facility] Unavailable [phone] Mago Swift [facility] Unavailable BrianneNiyah [facility] Unavailable Reason for Referral Rehab Therapy Physical Therapy (Routine: Next available opening) - Pending Review Specialty Diagnoses / Procedures Referred By Contact Refer red To Contact Diagnoses Tension headache Cervicogenic headache Cervicalgia Colby Yeung MD [address] [address] Referral ID Status Reason Start Date Expiration Date Visits V isits Requested Authorized [id number] Pending 06/30/2022 06/30/2023 1 1 Review Reason for Visit Reason Comments Consult Patient has headaches that g o into face/jaw Consultation (Routine: Next available opening) - Closed Specialty Diagnoses / Procedures Referred By Contact Refer red To Contact Diagnoses Bilateral occipital neuralgia Chronic tension-type headache, not intractable Chronic myofascial pain Lucas Anaya [facility] MD Romel [address] [place] [address] [place] [phone] Referral ID Status Reason Start Date Expiration Date Visits Requ ested Visits Authorized [id number] Closed 02/24/2022 02/24/2023 1 1 Encounter Details Date Type Department Care Team Description 06/30/2022 Office Visit [facility] [place] [address] [address] [id number] Tension headache (Primary Dx); Neurology Clinics - Colby Yeung MD [address] [id number] Bilateral occipital neuralgia; [place] Chronic myofascial pain; [address] [facility] Cervicoge yannick headache; [facility], [address] Cervicalgia; [place], [place] [phone] Spell of altered cognition [phone] Social History Tobacco Use Types Packs/Day Years [...] er 08/05/2021 How often do you attend sikh or buddhist services? Never 08/05/2021 Do you belong to any clubs or organizations such as sikh N o 08/05/2021 groups, unions, fraternal or [...] place to sleep or slept in a snf (including now)? 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 documented as of this encounter Last Filed Vital Signs Vital Sign Reading Time Taken Comments Blood Pressure 126/81 06/30/2022 8:07 AM CDT Pulse 99 06/30/2022 8:07 AM CDT Temperature - - Respiratory Rate - - Oxygen Saturation 97% 06/30/2022 8:07 AM CDT Inhaled Oxygen Concentration - - Weight 92.6 kg (204 lb 2.3 oz) 06/30/2022 8:07 AM CDT Height 165.1 cm (5' 5) 06/30/2022 8:07 AM CDT Body Mass Index 33.97 06/30/2022 8:07 AM CDT documented in this encounter Patient Instructions Patient InstructionsColby Yeung MD - 06/30/2022 8:00 AM CDT AFTER VISIT SUMMARY (AVS): At today's visit we thoroughly discussed various diagnostic possibilities for your symptoms, necessary evaluation, and the plan, which includes: Orders Placed This Encounter Procedures Physical Therapy Referral EEG Video 2-12 hrs Continuous Monitoring I totally agree with ordered by your pain specialist cervical spine MRI to investigate for the causeof your cervicogenic headaches. I also believe that you would benefit from left lesser occipital nerve block with steroid that could be arranged after cervical spine MRI is done. I placed an order for physical therapy to help your symptoms. We also discussed available treatment options and decided to see for a few weeks on how Lyrica at the present dose works. Dose could be increased in the future if necessary. Regarding blanking out episodes, will start with EEG. If negative would suggest follow-up with sleepspecialist. Additional recommendations after the work-up. Next follow-up appointment is in the next 4 weeks or earlier if needed. Please do not hesitate to call me with any questions or concerns. Thanks. documented in this encounter Progress Notes Colby Yeung MD - 06/30/2022 8:00 AM CDT INITIAL NEUROLOGY CONSULTATION DATE OF VISIT: 06/30/2022 CLINIC LOCATION: [facility] PATIENT NAME: Marta Hill DATE of : 1980 REASON FOR VISIT: Chief Complaint Patient presents with ??? Consult Patient has headaches that go into face/jaw HISTORY OF PRESENT ILLNESS: Ms. Marta Hill is 42 year old right handed female patient with past medical history of PTSD,depression, anxiety, bilateral occipital neuralgia, and sleep apnea, who was seen today for headachemanagement. Per patient's report and chart review, she was diagnosed with bilateral occipital neuralgia and tension headaches. Symptoms started many years ago. She complains of headaches, face and neck pain and also sensation of blanking out with body jerks. Currently face/neck/head pain occurs every day. She thinks that it originates from her left side of the neck. She has almost constant neck pain that could increase up to 10/10 at times and radiates to her left shoulder and left side of the head. Neck also feels tight. Bilateral frontotemporal pressure2-3/10 headache is daily without additional associated symptoms. She also reports daily blank out episodes that lead to muscle jerking that wakes her up. They lastseconds per her estimate. She believes that she was diagnosed with obstructive sleep apnea in the past. Feels tired and blanking out every day. Denies additional focal neurological symptoms. Tender point injections and occipital nerve blocks were partially effective. Currently she is on combination of Cymbalta 120 mg daily and 25 mg of Lyrica twice daily. Unsure if the latter is helpful, but only took it for few days. In addition, she is taking lamotrigine, Wellbutrin, and quetiapine. According to available notes from [facility], the patient was followed by multifactorial headache disorder in [phone]. Brain MRI at that time demonstrated non-specific T2 hyperintensities with wide differential. Botox injections were tried. She was also treated with topiramate, sertraline, tizanidine, and occipital nerve blocks. Reports several concussion during her teenage years without sequelae. 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 Family history is positive for stroke, seizures, and migraine/headache. Brain MRI with and without contrast from 05/27/2022 demonstrated mild non- specific mild changes, feltto be due to chronic microvascular ischemic disease, without other abnormalities. Images were personally reviewed and independently interpreted. According to Care Everywhere, brain MRI without contrast from 03/11/2019 demonstrated few scattered small foci of T2 hyperintensities without additional abnormalities. 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 PAST MEDICAL/SURGICAL HISTORY: I personally reviewed patient's past medical and surgical history with the patient at today's visit. MEDICATIONS: I personally reviewed patient's medications and allergies with the patient at today's visit. ALLERGIES: Allergies Allergen Reactions ??? Amoxicillin Rash EXAM: VITAL SIGNS: BP 126/81 (BP Location: Left arm, Patient Position: Sitting, Cuff Size: Adult Regular) Pulse 99 Ht 1.651 m (5' 5) Wt 92.6 kg (204 lb 2.3 oz) LMP 12/11/2021 (Exact Date) SpO2 97% BMI 33.97 kg/m?? Mini-Cog Assessment: Mini Cog Assessment Clock Draw Score: 2 Normal 3 Item Recall: 3 objects recalled Mini Cog Total Score: 5 Administered by: : Belinda Nath General: pt is in NAD, cooperative. Skin: normal turgor, moist mucous membranes, no lesions/rashes noticed. HEENT: ATNC, EOMI, PERRL, white sclera, normal conjunctiva, no nystagmus or ptosis. No carotid bruits bilaterally. Respiratory: lung sounds clear to auscultation bilaterally, no crackles, wheezes, rhonchi. Symmetriclung excursion, no accessory respiratory muscle use. Cardiovascular: normal S1/S2, no murmurs/rubs/gallops. Abdomen: Not distended. : deferred. Neurological: Mental: alert, follows commands, Mini Cog Total Score: 5/5 with 3/3 on memory recall, no aphasia or dysarthria. Fund of knowledge is appropriate for age. Cranial Nerves: CN II: visual acuity - able to accurately count fingers with each eye. Visual ch intact, fundi: discs sharp, no papilledema and normal vessels bilaterally. CN III, IV, : EOM intact, pupils equal and reactive CN V: facial sensation nl CN VII: face symmetric, no facial droop CN VIII: hearing normal CN IX: palate elevation symmetric, uvula at midline CN XI SCM normal, shoulder shrug nl CN XII: tongue midline Motor: Strength: 5/5 in all major groups of all extremities. Normal tone. No abnormal movements. No pronator drift b/l. Reflexes: Triceps, biceps, brachioradialis, patellar, and achilles reflexes normal and symmetric. Noclonus noted. Toes are down-going b/l. Sensory: light touch, pinprick, and vibration intact. Romberg: negative. Coordination: FNF and heel-lake tests intact b/l. Gait: Normal, able to tandem walk without difficulty. There is tenderness to palpation over the left lesser occipital nerve. DATA: LABS/EEG/IMAGING/OTHER STUDIES: I reviewed pertinent medical records, as detailed in the history of present illness. ASSESSMENT AND PLAN: ASSESSMENT: Marta Hill is a 42 year old female patient with listed above past medical history, who presents with quite severe left cervical pain radiating to her shoulder and head along with bifrontotemporal headaches and episodes of blanking out. We had a detailed discussion with the patient regarding her presenting complaints. The neurological exam today is non-focal. She has tenderness to palpation over the left lesser occipital nerve. We discussed that her clinical presentation is likely multifactorial and consistent with cervicalgia/cervicogenic headaches, left lesser occipital neuralgia, and tension headaches. It would be helpful to see what her cervical spine MRI demonstrates (ordered by her pain specialist and scheduled to be done tomorrow). She does not appreciate significant effect from Lyrica, but only took it for few days.We decided to give it more time before further adjustment of the dose. Regarding blanking out episodes, will start with EEG to evaluate for interictal epileptiform discharges/possibility of seizures. If negative would suggest follow-up with sleep specialist because these episodes might be due to not adequately treated obstructive sleep apnea. DIAGNOSES: ICD-10-CM 1. Tension headache G44.209 Physical Therapy Referral 2. Bilateral occipital neuralgia M54.81 Adult Neurology Leather Belt Maker Referral 3. Chronic myofascial pain M79.18 Adult Neurology Leather Belt Maker Referral G89.29 4. Cervicogenic headache G44.86 Physical Therapy Referral 5. Cervicalgia M54.2 Physical Therapy Referral 6. Spell of altered cognition R41.89 EEG Video 2-12 hrs Continuous Monitoring PLAN: At today's visit we thoroughly discussed various diagnostic possibilities for patient's symptoms, necessary evaluation, and the plan, which includes: Orders Placed This Encounter Procedures ??? Physical Therapy Referral ??? EEG Video 2-12 hrs Continuous Monitoring I totally agree with ordered by her pain specialist cervical spine MRI to investigate for the cause of her cervicogenic headaches. I also believe that she would benefit from left lesser occipital nerveblock with steroid that could be arranged after cervical spine MRI is done. I placed an order for physical therapy to help her symptoms. We also discussed available treatment options and decided to see for a few weeks on how Lyrica at the present dose works. Dose could be increased in the future if necessary. Additional recommendations after the work-up. Next follow-up appointment is in the next 4 weeks or earlier if needed. Total Time: 75 minutes spent on the date of the encounter doing chart review, history and exam, documentation and further activities per the note. Colby Yeung MD [facility] Neurology (Chart documentation was completed in part with [employer] voice-recognition software. Even though reviewed, some grammatical, spelling, and word errors may remain.) Belinda Ellis - 06/30/2022 8:00 AM CDT Marta Hill is a 42 year old female who presents for: Chief Complaint Patient presents with ??? Consult Patient has headaches that go into face/jaw Initial Vitals: BP 126/81 (BP Location: Left arm, Patient Position: Sitting, Cuff Size: Adult Regular) Pulse 99 Ht 1.651 m (5' 5) Wt 92.6 kg (204 lb 2.3 oz) LMP 12/11/2021 (Exact Date) SpO2 97% BMI 33.97 kg/m?? Estimated body mass index is 33.97 kg/m?? as calculated from the following: Height as of this encounter: 1.651 m (5' 5). Weight as of this encounter: 92.6 kg (204 lb 2.3 oz).. Body surface area is 2.06 meters squared. BPcompleted using cuff size: regular Belinda Ellis documented in this encounter Plan of Treatment Upcoming Encounters Date Type Specialty Care Team Description 09/26/2022 Appointment Speech Therapy Obdulio Barrera MD [address] [address] Anabel Chew, BANDER HAND [address] [place] [address] 09/27/2022 Therapy Visit Physical Therapy Luisana Watkins, PT [address] [place] [address] 09/29/2022 Virtual Visit Pain & Palliative Marilia Deluna, Care PhD [address] [place] [address] 09/30/2022 Office Visit Family Practice Aydee Burton, [employer] [address] [place] [id number] 10/03/2022 Therapy Visit Physical Therapy Una Reardon, PT [address] [place] [phone] 10/10/2022 Hospital Encounter Surgery Lesly Celaya MD [address] [place], [place] [phone] 10/10/2022 Office Visit Surgery Lesly Celaya MD [address] [place] [address] Ninoska Flowers PA-C [address] [place] [address] 10/10/2022 Surgery Surgery Lesly Celaya, EXCISION, MASSES - MD back, abdomen, [address] right lower BL extremity [place], [place] [address] 10/11/2022 Virtual Visit Cara RuizClrai, [facility] [address] [place] [address] 10/14/2022 Appointment Speech Therapy Anabel Chew, BANDER HAND [address] [address] 10/21/2022 Office Visit Pulmonology Obdulio Barrera MD [address] 983[address] 10/25/2022 PRE VISIT ENT Charo Burton MD Previsit [address] [place] [address] [phone] 10/25/2022 Office Visit ENT Charo Burton MD [address] [place], [place] [address] 10/25/2022 Office Visit ENT Provider, 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 10/28/2022 Appointment Speech Therapy Anabel Chew, BANDER HAND [address] [address] 11/17/2022 Appointment Speech Therapy Anabel Cehw, BANDER HAND [address] [address] 12/23/2022 Office Visit Neurology Colby Yeung MD [address] [id number] Scheduled Procedures Name Priority Associated Diagnoses Date/Time EXCISION, MASS, TORSO Lipoma of skin and subcuta neous 10/10/2022 7:30 AM 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 Scheduled Referrals Name Type Priority Associated Diagnoses Order S chedule Physical Therapy Referral Routine: Next Tension headach e Expected: Referral available opening Cervicogenic 06/30/2022 headache (Approximate), Cervicalgia Expires: 06/30/2023 documented as of this encounter Results EEG Video 2-12 hrs Continuous Monitoring (08/01/2022 4:39 PM CDT) Specimen (Source) Anatomical Location Collection Method / Collectio n Time Received Time / Laterality Volume Narrative [facility] - 08/01/2022 8:18 PM CDT EEG Video 2-12 hrs Continuous Monitoring Result [facility] EEG #[id number] (Out-Patient Vi vitaliy-EEG Monitoring) Name: ? Marta [...] monitoring was utilized and periodically reviewed by computed tomography technologist and the physician for electroclinical correl [...] neuralgia Other syndromes affecting cervical regio n Chronic myofascial pain Mylagia and myositis, unspecified Cervicogenic headache Headache Cervicalgia Spell of altered cognition Other signs and symptoms involving cogni tion Spell of altered cognition Other signs and symptoms involving cogni tion Lipoma of skin and subcutaneous tissue Lipoma of other skin and subcutaneous ti ssue documented in this encounter Additional Health Concerns Assessment Noted Time PHQ-9 Depression Total Score: 16 06/24/2022 9:31 AM CD T documented as of this encounter Care Teams Compensation/Benefits Specialist Relationship Specialty Start Date End Date Aydee Burton, PCP - General Nurse Practitioner - 05/17/21 [employer] Family [address] [place] [address] [phone] Aydee Burton, Assigned PCP 04/28/21 [employer] [address] [place], [place] [address] Louisa Hood, Assigned Neuroscience 07/11/21 [employer] Provider [address] [place], [place] [address] [place], Assigned Sleep 08/01/21 Angel Turcios, Provider [address] [place], [place] [address] Lesly Celaya MD Assigned Surgical 09/05/21 [address] [facility] [place] [address] Tawana Patel MA [facility] 09/30/21 Worker Ramses Mcpherson Assigned OBGYN 11/07/21 MD Onesimo Provider [address] [place], [place] [phone] Obdulio Barrera MD Critical Care 01/24/[address] [place] [address] [address] [place], [place] [address] Obdulio Barrera, Assigned Pulmonology 02/06/22 MD Provider [address] [place] [address] [address] [place], [place] [address] Lesvia Stanley, GHADA Cardiac Rehabilitation 03/03/22 03/03/23 [facility] Therapist [address] [place], [place] [address] Marilia Deluna, PhD Assigned Behavioral 02/20/22 [address] [facility] Provider [place], [place] [phone] Niyah Decker, [facility] Pharmacist Pharmacist 03/07/[address] [place] [address] [address] [place], [place] [address] Lesvia Stanley, GHADA Cardiac Rehabilitation 03/17/22 03/17/23 [facility] Therapist [address] [place], [place] [phone] Delia Avila, Pharmacist Pharmacist 7/26/22 [facility] [address] [place] [address] Mago Swift [facility] Lead [employer] Support Group Manager - 08/05/21 Clinical Niyah Decker, [facility] Assigned MTM 06/25/22 07/29/22 [address] [facility] [address] Pharmacist [place], [place] [address] documented as of this encounter
--- OUTSIDE RECORDS SUMMARY | 2022-09-21 04:01 | XMS_ITS | Encounter Summary ---
:1980 Author Organization [facility] Address [address] [place] [address] Care Team Providers Name Role Phone Aydee Burton HEALTH POLICY MANAGER JAVA ENGINEER Primary Care Provider Aydee Burton APRN JAVA ENGINEER Unavailable [phone] Louisa Hood HEALTH POLICY MANAGER JAVA ENGINEER Unavailable [phone] Angel Hannah MD Unavailable Lesly Celaya MD Unavailable Tawana Patel MA Unavailable Unavailable Ramses Mcpherson MD Unavailable [phone] Obdulio Barrera MD Unavailable [phone] Obdulio Barrera MD Unavailable [phone] Lesvia Stanley Unavailable Marilia Deluna PhD Unavailable Niyah Decker [facility] Unavailable Lesvia Stanley Unavailable Niyah Warner RN Unavailable Delia Avila [facility] Unavailable [phone] Delia Avila [facility] Unavailable [phone] Mago Swift [facility] Unavailable Reason for Referral Diagnostic Imaging Ultrasound (Routine) - Pending Review Specialty Diagnoses / Procedures Referred By Contact Refer red To Contact Diagnoses Enlarged thyroid Aydee Burton APRN Procedures US Thyroid JAVA ENGINEER [address] [place] [address] Referral ID Status Reason Start Date Expiration Date Visits V isits Requested Authorized [id number] Pending 06/14/2022 06/14/2023 1 1 Review Reason for Visit Diagnostic Imaging Ultrasound (Routine) - Pending Review Specialty Diagnoses / Procedures Referred By Contact Refer red To Contact Diagnoses Enlarged thyroid Aydee Burton APRN Procedures US Thyroid JAVA ENGINEER [address] [place] [address] Referral ID Status Reason Start Date Expiration Date Visits V isits Requested Authorized [id number] Pending 06/14/2022 06/14/2023 1 1 Review Encounter Details Date Type Department Care Team Description 06/16/2022 Hospital Encounter [facility] Aydee Burton rged thyroid [facility] ELADIO Mendez JAVA ENGINEER [address] [place] [address] [place], [place] [phone] (Wo rk) Social History Tobacco Use Types [...] How often do you attend denominational or hinduism services? 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 documented as of this encounter Medications at Time of Discharge Medication Sig Dispensed Refills Start Date End Date acetaminophen Take 500-1,000 mg by 0 (TYLENOL) 500 MG mouth every 6 hours tablet as needed for mild pain albuterol (PROAIR Inhale 2 puffs into 18 g 11 2 HFA/PROVENTIL the lungs every 4 HFA/VENTOLIN HFA) 108 hours as needed for (90 Base) MCG/ACT shortness of breath / inhalerIndications: dyspnea or wheezing Reduced chest expansion on inspiration, Wheezing albuterol (PROVENTIL) Take 1 vial (2.5 mg) 90 mL 5 03/0 07/2022 (2.5 MG/3ML) 0.083% by nebulization every neb 6 hours as needed for solutionIndications: shortness of breath / Wheezing, Pulmonary dyspnea or wheezing air trapping, Shortness of breath budesonide-formoterol Inhale 2 puffs into 10.2 [...] once sprayIndications: SOB daily (shortness of breath) ipratropium - Take 1 vial (3 mLs) 540 mL 5 02/03/2022 albuterol 0.5 mg/2.5 by nebulization every mg/3 mL (DUONEB) 4 hours as needed for 0.5-2.5 (3) MG/3ML neb shortness of breath / solutionIndications: dyspnea or wheezing Chest tightness, SOB (shortness of breath) lamoTRIgine (LAMICTAL) Take 1 tablet (100 90 tablet 1 02/13 100 MG mg) by mouth daily tabletIndications: And a 200mg Total PTSD (post-traumatic dose in 300mg daily stress disorder), Anxiety lamoTRIgine (LAMICTAL) Take 1 tablet (200 90 tablet 1 02/13 200 MG mg) by mouth daily tabletIndications: With a 100 mg to PTSD (post-traumatic total 300mg daily stress disorder), Anxiety methocarbamol Take 1-1.5 tablets 90 tablet 1 05/14/2022 (ROBAXIN) 500 MG (500-750 mg) by mouth tabletIndications: 3 times daily as Chronic myofascial needed for muscle pain, Trigger point of spasms shoulder region, unspecified laterality QUEtiapine (SEROQUEL) Take 100 mg by mouth 30 tablet 2 02/2022 100 MG tablet as needed QUEtiapine (SEROQUEL) Take 200 mg by mouth 0 200 MG tablet At Bedtime tiotropium (SPIRIVA) Inhale 1 capsule (18 30 capsule 3 06/06 18 MCG inhaled mcg) into the lungs capsuleIndications: daily SOB (shortness of breath) vitamin D3 Take 1 tablet by 0 (CHOLECALCIFEROL) 50 mouth daily mcg (2000 units) tablet clotrimazole (MYCELEX) Place 1 lozenge (10 70 lozenge 0 03/1308/26/2022 10 MG mg) inside cheek 5 lozengeIndications: times daily for 14 Thrush days Take for 7-14 days; use 2 days after symptoms resolve. gabapentin (NEURONTIN) Take 200 mg every 60 Units 3 202106/23/2022 100 MG capsule morning. (In addition to 300 mg capsules (1 capsule) at bedtime) gabapentin (NEURONTIN) Take 1 capsule (300 240 capsule 0 02/202206/24/2022 300 MG mg) by mouth At capsuleIndications: Bedtime Bilateral occipital neuralgia omeprazole (PRILOSEC) Take 1 capsule (20 60 capsule 1 202106/24/[address] mg) by mouth 2 times capsuleIndications: daily Chronic cough ondansetron (ZOFRAN Take 1 tablet (4 mg) 20 tablet 0 202107/08/2022 ODT) 4 MG ODT by mouth every 8 tabIndications: S/P hours as needed for laparoscopic nausea hysterectomy documented as of this encounter Miscellaneous Notes Result Encounter Note - Aydee Burton APRN CNP - 06/16/2022 11:59 PM CDT Dear Marta, Here is a summary of your recent test results: Great news thyroid gland is normal on ultrasound. For additional lab test information, labtestsonline.org is an excellent reference. In addition, here is a list of due or overdue Health Maintenance reminders: Asthma Action Plan - yearly Never done Preventive Care Visit due on 06/11/2022 Please call us at [phone] (or use [employer]) to address the above recommendations if needed. Thank you for choosing [facility]. It was an honor and a privilege to participate in your care. Healthy regards, Aydee Burton, TARA [facility] documented in this encounter Plan of Treatment Upcoming Encounters Date Type Specialty Care Team Description 09/26/2022 Appointment Speech Therapy Obdulio Barrera MD [address] [facility] [address] [place], [place] [address] Anabel Chew, LEARNING PROGRAM MANAGER [place] [id number] [facility] [place] [address] [place] [address] 09/27/2022 Therapy Visit Physical Therapy Luisana Watkins, PT [address] [place] [address] 09/29/2022 Virtual Visit Pain & Palliative Marilia Deluna, Care PhD [address] [place] [address] 09/30/2022 Office Visit Family Practice Aydee Burton APRN JAVA ENGINEER [address] [place] [id number] 10/03/2022 Therapy Visit Physical Therapy Una Reardon, PT [address] [place] [phone] 10/10/2022 Hospital Encounter Surgery Lesly Celaya MD [address] [place], [place] [address] 10/10/2022 Office Visit Surgery Lesly Celaya MD [address] [place], [place] [phone] Ninoska Flowers PA-C [address] [place] [id number] 10/10/2022 Surgery Surgery Yomi, Lesly, EXCISION, MASSES - MD back, abdomen, [address] extremity [place], [place] [address] 10/11/2022 Virtual Visit Pharm Clari Stoll, [facility] [address] [place] [address] 10/14/2022 Appointment Speech Therapy Anabel Chew, LEARNING PROGRAM MANAGER [address] 9467[address] 10/21/2022 Office Visit Pulmonology Obdulio Barrera MD [address] [address] 10/25/2022 PRE VISIT ENT Charo Burton MD Previsit [address] [place], [place] [address] 10/25/2022 Office Visit ENT Charo Burton MD [address] [place], [place] [address] 10/25/2022 Office Visit ENT Provider, Jeannette 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 Welding Machine Operator Electro Gas 10/28/2022 Appointment Speech Therapy Anabel Chew SLP [address] 25[address] 11/17/2022 Appointment Speech Therapy Anabel Chew SLP [address] 2835[address] 12/23/2022 Office Visit Neurology Colby Yeung MD [address] [place] [phone] Scheduled Procedures Name Priority Associated Diagnoses Date/Time EXCISION, MASS, TORSO Lipoma of skin and subcuta neous 10/10/2022 7:30 AM TAILOR GARMENT FITTER tissue documented as of this encounter Procedures Procedure Name Priority Date/Time Associated Diagnosis Comme nts US THYROID Routine 06/16/2022 5:27 PM Enlarged thyroid Resul ts for this CDT procedure are i n the results section . documented in this encounter Results US Thyroid [...] Reyes et al. Journal of t he [employer] 2017. Volume 14 (2017), Issue 5, 365-536. Narrative 06/16/2022 9:41 PM CDT EXAM: US THYROID LOCATION: [facility] DATE/TIME: 06/16/2022 5:03 PM INDICATION: Thyroid gland [...] from the original. EXAM: US THYROID LOCATION: [facility] DATE/TIME: 06/16/2022 5:03 PM INDICATION: Thyroid gland [...] Reyes et al. Journal of t he [employer] 2017. Volume 14 (2017), Issue 5, [id number]. Aydee Burton HEALTH POLICY MANAGER JAVA ENGINEER IMG US ORDERABLES documented in this encounter Visit Diagnoses Diagnosis Enlarged thyroid Goiter, unspecified Lipoma of skin and subcutaneous tissue Lipoma of other skin and subcutaneous ti ssue documented in this encounter Additional Health Concerns Assessment Noted Time PHQ-9 Depression Total Score: 19 06/14/2022 3:18 PM CD T documented as of this encounter Care Teams Recreation Professor Relationship Specialty Start Date End Date Aydee Burton, PCP - General Nurse Practitioner - 05/17/21 HEALTH POLICY MANAGER JAVA ENGINEER Family [address] [place], [place] [phone] Aydee Burton, Assigned PCP 04/28/21 HEALTH POLICY MANAGER JAVA ENGINEER [address] [place], [place] [phone] Louisa Hood, Assigned Neuroscience 07/11/21 HEALTH POLICY MANAGER JAVA ENGINEER Provider [address] [place], [place] [address] [place], Assigned Sleep 08/01/21 Angel Turcios Provider [address] [place], [place] [address] Lesly Celaya MD Assigned Surgical 09/05/21 [address] Provider [place], [place] [phone] Tawana Patel MA [facility] 09/30/21 Worker Ramses Mcpherson Assigned OBGYN 11/07/21 MD Onesimo Provider [address] [place] [address] Obdulio Barrera MD Critical Care 01/24/[address] [place] [address] [address] [place], [place] [address] Obdulio Barrera, Assigned Pulmonology 02/06/22 MD Provider [address] [place] [address] [id number] Lesvia Stanley, GHADA Card[facility] 03/03/22 03/03/23 [facility] Therapist [address] [place] [id number] Marilia Deluna, PhD Assigned Behavioral 02/20/22 [address] [facility] [place] [address] Niyah Decker, [facility] Pharmacist Pharmacist 03/07/[address] [place] [address] [address] [place], [place] [address] Lesvia Stanley, GHADA Cardiac Rehabilitation 03/17/22 03/17/23 [facility] Therapist [address] [place] [address] Niyah Warner, Lead Manager Vehicle Primary Care - CC 06/27/22 RN Delia Avial, Pharmacist Pharmacist 06/07/[address] [phone] Delia Avila, Assigned MTM 06/11/2206/24 [facility] Pharmacist [address] [place] [address] Mago Swift [facility] Lead Manager Vehicle Photography And Prints Curator - 08/05/21 Clinical documented as of this encounter
--- OUTSIDE RECORDS SUMMARY | 2022-09-21 04:01 | XMS_ITS | Encounter Summary ---
:1980 Author Organization [facility] Address [address] [place] [address] Care Team Providers Name Role Phone Aydee Burton MANAGER TRANSITION CREDIT AND COLLECTIONS ANALYST Primary Care Provider [phone] Aydee Burton APRN CREDIT AND COLLECTIONS ANALYST Unavailable [phone] Louisa Hood MANAGER TRANSITION CREDIT AND COLLECTIONS ANALYST Unavailable [phone] Angel Hannah MD Unavailable Lesly Celaya MD Unavailable Tawana Patel MA Unavailable Unavailable Ramses Mcpherson MD Unavailable [phone] Obdulio Barrera MD Unavailable [phone] Obdulio Barrera MD Unavailable [phone] Lesvia Stanley Unavailable Marilia Deluna PhD Unavailable Niyah Decker [facility] Unavailable Clari Poole [facility] Unavailable Lesvia Stanley EP Unavailable Niyah Warner RN Unavailable Delia Avila [facility] Unavailable [phone] Delia Avila [facility] Unavailable [phone] [facility] Unavailable Encounter Details Date Type Department Care Team Description 06/14/2022 Travel Social History Tobacco Use Types Packs/Day [...] er 08/05/2021 How often do you attend orthodoxy or alevism services? 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 documented as of this encounter Plan of Treatment Upcoming Encounters Date Type Specialty Care Team Description 09/26/2022 Appointment Speech Therapy Obdulio Barrera MD [address] [facility] [address] [place], [place] [address] Anabel Chew, HOSTESS CASHIER [facility] [address] [facility] [address] [place], [place] [address] 09/27/2022 Therapy Visit Physical Therapy Luisana Watkins, PT [address] [place] [address] 09/29/2022 Virtual Visit Pain & Palliative Marilia Deluna, [facility] PhD [address] [place], [place] [address] 09/30/2022 Office Visit Family Practice Aydee Burton, MANAGER TRANSITION CREDIT AND COLLECTIONS ANALYST [address] [place] [phone] 10/03/2022 Therapy Visit Physical Therapy Una Reardon, PT [address] [place] [address] 10/10/2022 Hospital Encounter Surgery Lesly Celaya MD [address] [place], [place] [phone] 10/10/2022 Office Visit Surgery Lesly Celaya MD [address] [place], [place] [phone] Ninoska Flowers PA-C [address] [place] [address] 10/10/2022 Surgery Surgery Lesly Celaya, EXCISION, MASSES - MD back, abdomen, [address] extremity [place], [place] [address] 10/11/2022 Virtual Visit Clari Su, [facility] [address] [place] [address] 10/14/2022 Appointment Speech Therapy Anabel Chew, HOSTESS CASHIER [address] [address] 10/21/2022 Office Visit Pulmonology Obdulio Barrera MD [address] [address] 10/25/2022 PRE VISIT ENT Charo Burton MD Previsit [address] [place], [place] [address] 10/25/2022 Office Visit ENT Charo Burton MD [address] [place], [place] [address] 10/25/2022 Office Visit ENT Provider, 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 Weight Calculator 10/28/2022 Appointment Speech Therapy Anabel Chew, CELINE [address] [address] 11/17/2022 Appointment Speech Therapy Anabel Chew SLP [address] [address]45 12/23/2022 Office Visit Neurology Colby Yeung MD [address] [place] [address] Scheduled Procedures Name Priority Associated Diagnoses Date/Time EXCISION, MASS, TORSO Lipoma of skin and subcuta neous 10/10/2022 7:[address] LIGHT REPAIRER HELPER tissue documented as of this encounter Visit Diagnoses Not on filedocumented in this encounter Additional Health Concerns Assessment Noted Time PHQ-9 Depression Total Score: 19 06/14/2022 3:18 PM CD T documented as of this encounter Care Teams Irrigation Teacher Relationship Specialty Start Date End Date Aydee Burton, PCP - General Nurse Practitioner - 05/17/21 MANAGER TRANSITION CREDIT AND COLLECTIONS ANALYST Family [address] [place], [place] [phone] Aydee Burton, Assigned PCP 04/28/21 MANAGER TRANSITION CREDIT AND COLLECTIONS ANALYST [address] [place] [address] oLuisa Hood, Assigned Neuroscience 07/11/21 MANAGER TRANSITION CREDIT AND COLLECTIONS ANALYST Provider [address] [place], [place] [phone] [place], Assigned Sleep 08/01/21 Angel Turcios, Provider [address] [place], [place] [address] Lesly Celaya MD Assigned Surgical 09/05/21 [address] Provider [place], [place] [address] Tawana Patel MA [facility] 09/30/21 Worker Ramses Mcpherson Assigned OBGYN 11/07/21 MD Onesimo Provider [address] [place], [place] [phone] Obdulio Barrera MD Critical Care 01/24/[address] [place] [address] [phone] Obdulio Barrera, Assigned Pulmonology 02/06/22 MD Provider [address] [phone] Lesvia Stanley, GHADA Cardiac Rehabilitation 03/03/22 03/03/23 [facility] Therapist [address] [place] [address] Marilia Deluna, PhD Assigned Behavioral 02/20/22 [address] [facility] [place] [place] [address] Niyah Decker, [facility] Pharmacist Pharmacist 03/07/22 [address] [facility] [address] [place], [place] [address] Clari Poole, Pharmacist Pharmacist 03/07/22 06/15/22 [facility] [address] [facility] [address] Lesvia Stanley, GHADA Cardiac Rehabilitation 03/17/22 03/17/23 [facility] Therapist [address] [place] [address] Niyah Warner, Lead Bale Stacker Primary Care - CC 06/27/22 RN Delia Avila, Pharmacist Pharmacist 06/07/[address] [phone] Delia Avila, Assigned MTM 06/11/2206/24 [facility] Pharmacist [address] [place] [address] [phone] Mago Swift, [facility] Lead Bale Stacker Process Controls Technician - 08/05/21 Clinical documented as of this encounter
--- OUTSIDE RECORDS SUMMARY | 2022-09-21 04:01 | XMS_ITS | Encounter Summary ---
:1980 Author Organization [place] Address [address] [place] [address] Care Team Providers Name Role Phone Aydee Burton GEAR LAPPER FISCAL SPECIALIST Primary Care Provider Aydee Burton APRN FISCAL SPECIALIST Unavailable [phone] Louisa Hood GEAR LAPPER FISCAL SPECIALIST Unavailable [phone] Angel Hannah MD Unavailable Lesly Celaya MD Unavailable Tawana Patel MA Unavailable Unavailable Ramses Mcpherson MD Unavailable [phone] Obdulio Barrera MD Unavailable [phone] Obdulio Barrera MD Unavailable [phone] Lesvia Stanley Unavailable Marilia Deluna PhD Unavailable Niyah Decker [facility] Unavailable Clari Poole [facility] Unavailable Lesvia Stanley EP Unavailable Niyah Warner RN Unavailable Delia Avila [facility] Unavailable [phone] Niyah Decker [facility] Unavailable Mago Swift [facility] Unavailable Encounter Details Date Type Department Care Team Description 06/08/2022 Virtual Visit [facility] Marilia Deluna Bil ateral occipital neuralgia (Primary Dx); Pain Management PhD Upper back pain; [place] [id number] [place] [address] Chronic tension-type headache, not intra ctable [address] [place], [place] [address] [address] [place] [address] Social History Tobacco Use Types [...] at Date Recorded Female 11/09/2021 7:53 PM [employer]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 documented as of this encounter Progress Notes Marilia Deluna - 06/08/2022 3:00 PM CDT Marta Hill is a 42 [...] verbal consent for Video visit? Yes Patient would like the video invitation sent by: Text to cell phone: .[phone]} Video Start Time: 3:00 PM Additional provider notes: Pain Diagnoses per pain provider: Bilateral occipital neuralgia ?? Upper back pain ?? Chronic tension-type headache, not intractable? DATA: During today's visit you reported the following: Your shoulder and head/face pain is worse, having increased headaches. Your mood is 'not too bad,' still a little down with getting self back on track. Your activity level is stable. Feel that cough is more stable/less of a concern. Your stress level is higher than you'd like - ex- filed for adjustment to child support, finances. Your sleep is still poor - struggling with sticking to sleep routine, self-described 'night owl' which doesn'twork given your new work schedule. You reported engaging in self-care for your pain infrequently. You identified that you would like to focus on the following or had questions regarding the following issues or concerns, and we discussed the following: - discussed missed appointment on Monday and attendance policy - encouraged to keep number handy to call to cancel prior to appointment start - have appointment to establish care with Madalyn Ponce MD since Lucas JaclynDO has left clinic - work tends to be primary trigger, stress can also trigger increased pain - struggling with avoidance of engaging in tasks like going through bills and paying them - encouraged to ask [facility] to determine if you might benefit from additional support services such as [employer] worker - softball season 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 Work duties continue to be a trigger for pain, as does emotional distress specifically related to co-parenting issues. PLAN: Your next appointment is scheduled for 07/14 at 2:00 PM. Assignment/Objectives /interventions for next session: - consider putting the clinic number in your phone so you have ready access to it - [phone] - keep written list of skills as you use them, we will build on them next time We believe regular attendance is miranda to your success in our program! ?? Any time you are unable to keep your appointment we ask that you call us at [phone] at least24 hours in advance to cancel.This will allow us to offer the appointment time to another patient. ?? Multiple missed appointments may lead to dismissal from the clinic. Video-Visit Details Type of service: Video Visit Video End Time (time video stopped): 3:40 PM Originating Location (pt. Location): Home Distant Location (provider location): [facility] Mode of Communication: Video Conference via Claude Deluna PsyD LP Licensed Psychologist Outpatient Clinic Therapist [facility] Pain Management documented in this encounter Plan of Treatment Upcoming Encounters Date Type Specialty Care Team Description 09/26/2022 Appointment Speech Therapy Obdulio Barrera MD [address] [place] [id number] Anabel Chew, FLYING I INSTRUCTOR [facility] [address] [facility] [address] [place] [address] 09/27/2022 Therapy Visit Physical Therapy Luisana Watkins, PT [address] [place] [address] 09/29/2022 Virtual Visit Pain & Palliative Marilia Deluna, [facility] PhD [address] [place], [place] [id number] 09/30/2022 Office Visit Family Practice Aydee Burton, GEAR LAPPER FISCAL SPECIALIST [address] [place] [address] 10/03/2022 Therapy Visit Physical Therapy Una Reardon, PT [address] [place] [address] 10/10/2022 Hospital Encounter Surgery Lesly Celaya MD [address] [place], [place] [id number] 10/10/2022 Office Visit Surgery Lesly Celaya MD [address] [place] [address] Ninoska Flowers, PA-Ynes [address] [facility] [address] [place] [address] 10/10/2022 Surgery Surgery Lesly Celaya, EXCISION, MASSES - MD back, abdomen, [address] right lower [facility] [place] [address] 10/11/2022 Virtual Visit Clari Su, [facility] [address] [facility] [address] [place], [place] [address] 10/14/2022 Appointment Speech Therapy Anabel Chew, FLYING I INSTRUCTOR [address] [address] 10/21/2022 Office Visit Pulmonology Obdulio Barrera MD [address] [facility] [address] [place] [address] 10/25/2022 PRE VISIT ENT Charo Burton MD Previsit [address] [place] [address] 10/25/2022 Office Visit ENT Charo Burton MD [address] [place] [id number] 10/25/2022 Office Visit ENT Provider, 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 Manager [employer] 10/28/2022 Appointment Speech Therapy Anabel Chew, FLYING I INSTRUCTOR [address] [address] 11/17/2022 Appointment Speech Therapy Anabel Chew, FLYING I INSTRUCTOR [address] [address] 12/23/2022 Office Visit Neurology Colby Yeung MD [address] [place] [address] Scheduled Procedures Name Priority Associated Diagnoses Date/Time EXCISION, MASS, TORSO Lipoma of skin and subcuta neous 10/10/2022 7:30 AM 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 documented as of this encounter Procedures Procedure Name Priority Date/Time Associated Diagnosis Comme nts CT [facility]HAVIOR Routine 06/08/2022 3:45 PM CDT Bilateral oc cipital INTERVENTION, neuralgia INDIVIDUAL, INITIAL 30 Upper krystal k pain MINS Chronic tension-type headache, not intractable documented in this encounter Visit Diagnoses Diagnosis Bilateral occipital neuralgia - Primary Other syndromes affecting cervical regio n Upper back pain Pain in thoracic spine Chronic tension-type headache, not intra ctable Chronic tension type headache Lipoma of skin and subcutaneous tissue Lipoma of other skin and subcutaneous ti ssue documented in this encounter Additional Health Concerns Assessment Noted Time PHQ-9 Depression Total Score: 19 05/27/2022 1:35 PM CD T documented as of this encounter Care Teams Tubular Stock Glass Bulb Machine Former Relationship Specialty Start Date End Date Aydee Burton, PCP - General Nurse Practitioner - 05/17/21 GEAR LAPPER FISCAL SPECIALIST Family [address] [place] [phone] Aydee Burton, Assigned PCP 04/28/21 GEAR LAPPER FISCAL SPECIALIST [address] [place] [address] [phone] Louisa Hood, Assigned Neuroscience 07/11/21 GEAR LAPPER FISCAL SPECIALIST Provider [address] [place] [address] [place], Assigned Sleep 08/01/21 Angel Turcios, Provider [address] [facility] [address] [place] [address] Lesly Celaya MD Assigned Surgical 09/05/21 [address] [place] [address] Tawana Patel MA [facility] 09/30/21 Worker Ramses Mcpherson Assigned OBGYN 11/07/21 MD Onesimo Provider [address] [place] [address] Obdulio Barrera MD Critical Care 01/24/22 [address] [facility] [address] [place] [address] Obdulio Barrera, Assigned Pulmonology 02/06/22 MD Provider [address] [facility] [address] [place], [place] [phone] Lesvia Stanley, [facility] Cardiac Rehabilitation 03/03/22 03/03/23 [facility] Therapist [address] [place] [address] Marilia Deluna, PhD Assigned Behavioral 02/20/22 [address] [facility] [place] [address] Niyah Decker, [facility] Pharmacist Pharmacist 03/07/[address] [place] [address] [address] [place], [place] [address] Clari Poole, Pharmacist Pharmacist 03/07/22 06/15/22 [facility] [address] [facility] [address] [place] [id number] Lesvia Stanley, GHADA Cardiac Rehabilitation 03/17/22 03/17/23 [facility] Therapist [address] [place] [address] Niyah Warner, Lead Cupola Melter Primary Care - CC 06/27/22 RN Delia Avila, Pharmacist Pharmacist 06/07/22 [facility] [address] [place], [place] [address] Niyah Decker, [facility] Assigned MTM 05/28/22 06/10/22 [address] [facility] [address] [place] [address] Mago Swift, [facility] Lead Cupola Melter Junior Media Buyer - 08/05/21 Clinical documented as of this encounter
--- OUTSIDE RECORDS SUMMARY | 2022-09-21 04:01 | XMS_ITS | Encounter Summary ---
:1980 Author Organization [facility] Address [address] [place] [address] Care Team Providers Name Role Phone Aydee Burton DESKTOP SUPPORT MANAGER SLIMER Primary Care Provider [phone] Aydee Burton APRN SLIMER Unavailable [phone] Louisa Hood DESKTOP SUPPORT MANAGER SLIMER Unavailable [phone] Angel Hannah MD Unavailable Lesly Celaya MD Unavailable Tawana Patel MA Unavailable Unavailable Ramses Mcpherson MD Unavailable [phone] Obdulio Barrera MD Unavailable [phone] Obdulio Barrera MD Unavailable [phone] Lesvia Stanley Unavailable Marilia Deluna PhD Unavailable Niyah Decker [facility] Unavailable Lesvia Stanley Unavailable Niyah Warner RN Unavailable Delia Avila [facility] Unavailable [phone] Oh Avilaidi Mel [facility] Unavailable [phone] Mago Swift [facility] Unavailable Reason for Visit Reason Comments Medication Therapy Management Encounter Details Date Type Department Care Team Description 06/16/2022 Virtual Visit [facility] Niyah Decker Bila terbianca occipital neuralgia (Primary Dx); Clinic [facility] Major depressive disorder, remission sta tus unspecified, unspecified whether recurrent; [address] SHAMEKA (ge neralized anxiety disorder); [facility] 812 PTSD (post-traumatic stress disorder); [address] [place], [place] Severe asthma, unspecified w hether complicated, unspecified whether persistent; [place] [address] [facility] [id number] Social History Tobacco Use Types Packs/Day Years [...] often do you attend roman catholic or christian services? Never 08/05/2021 Do you [...] at Date Recorded Female 11/09/2021 7:53 PM FINAL FINISHER COVID-19 Exposure Response Date Recorded In the last 10 days, have you been in contact with No / Unsu re 06/14/2022 2:50 PM CDT someone who was confirmed or suspected to have Coronavirus/COVID-19? documented as of this encounter Patient Instructions Patient InstructionsNiyah Decker RPH - 06/16/2022 3:00 PM CDT Recommendations from today's MTM visit: 1. Reduce Gabapentin 200 mg every morning to see if this improves your daytime tiredness and sleeping episodes. If not change in your pain but you continue to have the tiredness during the day you can decrease to 100 mg every morning. Continue taking gabapentin 300 mg before bedtime. Follow-up: Return in about 3 weeks (around 07/07/2022) for Medication Therapy Management. It was great speaking with you today. I value your experience and would be very thankful for your time in providing feedback in our clinic survey. In the next few days, you may receive an email or textmessage from [employer] with a link to a survey related to your ???clinical pharmacist. To schedule another MTM appointment, please call the clinic directly or you may call the MTM scheduling line at [phone] or toll-free at . My Clinical Pharmacist's contact information: Please feel free to contact me with any questions or concerns you have. Niyah Decker , Pharm D [phone] (phone) Medication Therapy Management Pharmacist documented in this encounter Progress Notes Niyah Decker RPH - 06/16/2022 3:00 PM CDT Medication Therapy Management (MTM) Encounter ASSESSMENT: Medication Adherence/Access: No issues identified PTSD with Anxiety/Depression: Discussed that high dose quetiapine may be contributing to daytime fatigue. A bit hesitant to change since she has a lot of stress in her life right now. Will follow-up with psychiatry as planned in Jul and discuss possible dose reduction at that time. Per [employer] report she is ultrarapid metabolizer of 2B6; bupropion is a substrate of 2B6 so she may get more benefit from higher doses. Facial Neuralgia/Elbow Pain/Hand Stiffness/Neck and Shoulder Pain: continues to have daytime fatigue/sncope episodes. Will reduce gabapentin to 200 mg every morning and continue with 300 mg at bedtime. Follow-up with Neurology as planned. Asthma: ACT not at goal. Having to use her rescue inhaler more frequently since discontinue montelukast, however her mood seems to have improved since discontinuing. Discussed changing to Spiriva Respimat to see if that was better tolerated but she didn't feel like she needed the change at this time. Follow-up with ENT as planned PLAN: 1. Gabapentin 200 mg every morning Follow-up: Return in about 3 weeks (around 07/07/2022) for Medication Therapy Management. SUBJECTIVE/OBJECTIVE: Marta Hill is a 42 year old female called for a follow-up visit. Today's visit is a follow-up MTM visit from 06/07/22 with Delia Avila. Reason for visit: medication follow-up Allergies/ADRs: Reviewed in chart Tobacco: She reports that she has never smoked. She has never used smokeless tobacco. Alcohol: not currently using Medication Adherence/Access: no issues reported PTSD with Anxiety/Depression: Patient is currently taking duloxetine 120mg in the evening, bupropionXL 300mg daily, lamotrigine 300mg at bedtime, and quetiapine 200mg at bed (not taking additional doses of quetiapine during the day for at least the past couple weeks as she gets too sleepy) and gabapentin as below. Going to bed earlier and trying to get more sleep. Able to sleep with meds. Feels more rested lately. Patient has had [employer] testing performed with Niyah and reviewed the results with Aydee Burton CNP. She is wondering based on the results whether her bupropion should be increased to help with her mood and fatigue. Followed by psychiatrist; follow-up scheduled in Jul. PHQ 03/18/2022 05/19/2022 05/27/2022 PHQ-9 Total Score 16 20 19 Q9: Thoughts of better off /self-harm past 2 weeks Not at all Not at all Not at all F/U: Thoughts of suicide or self-harm - - - F/U: Self harm-plan - - - F/U: Self-harm action - - - F/U: Safety concerns - - - Facial Neuralgia/Elbow Pain/Hand Stiffness/Neck and Shoulder Pain: Patient has had chronic headacheswith stiff neck and shoulders for many years, which progressed to facial pain that imaging suggestedis not trigeminal neuralgia. She is establishing with a new neurologist within the system 06/30. Had a flare yesterday, first one in some time. Not completely resolved but better today. Heat packs help with symptoms. Syncope/black outs still happening but not as often. Was happening more on higher doses of gabapentin. Not as tired now. Taking gabapentin 300 mg twice daily and during the day if needed; trying not totake during the day. Hasn't taken methocarbamol for a while. Tries to avoid taking during the day. Has had Botox injections for facial pain and it made her pain much worse. She recalls having a different kind of injections many years ago when she just had chronic headache (thinks it was two injections in one procedure) and those helped some, hasn't looked into this recently. Has not tried pregabalin that she recalls. Pt reports her breast implants have been in place since approx 2004. This was addressed at recent primary care provider who is looking into this more as possible cause of symptoms. Asthma: Current medications: ICS/LABA- Symbicort 2 puff(s) twice daily LAMA- Spiriva Handihaler 1 puff(s) once daily Short-Acting Bronchodilator: Albuterol MDI, Ipratropium/Albuterol Nebs - needed albuterol twice daily at work; nebs before bed every other day. Rinses medication after using. Uses spacer with the Symbicort. She also has benzonatate that she uses occasionally for cough. Patient reports an increase in dry mouth and possibly general thirst since starting Spiriva (dry mouth started 2 months or so ago). Patient stopped Singulair 4 days ago as her provider had suggested that it might possibly be contributing to some of her anger/irritability. She has not noted a difference yet. Patient reports the following symptoms: none. ACT Total Scores 03/07/2022 ACT TOTAL SCORE (Goal Greater than or Equal to 20) 6 In the past 12 months, how many times did you visit the emergency room for your asthma without beingadmitted to the hospital? 2 In the past 12 months, how many times were you hospitalized overnight because of your asthma? 0 Last Comprehensive Metabolic Panel: Sodium Date Value Ref Range Status 05/25/2022 139 133 - 144 mmol/L Final 05/17/2021 139 133 - 144 mmol/L Final Potassium Date Value Ref Range Status 05/25/2022 3.5 3.4 - 5.3 mmol/L Final 05/17/2021 3.6 3.4 - 5.3 mmol/L Final Chloride Date Value Ref Range Status 05/25/2022 106 94 - 109 mmol/L Final 05/17/2021 107 94 - 109 mmol/L Final Carbon Dioxide Date Value Ref Range Status 05/17/2021 26 20 - 32 mmol/L Final Carbon Dioxide (CO2) Date Value Ref Range Status 05/25/2022 31 20 - 32 mmol/L Final Anion Gap Date Value Ref Range Status 05/25/2022 2 (L) 3 - 14 mmol/L Final 05/17/2021 6 3 - 14 mmol/L Final Glucose Date Value Ref Range Status 05/25/2022 89 70 - 99 mg/dL Final 05/17/2021 95 70 - 99 mg/dL Final Comment: Fasting specimen Urea Nitrogen Date Value Ref Range Status 05/25/2022 14 7 - 30 mg/dL Final 05/17/2021 12 7 - 30 mg/dL Final Creatinine Date Value Ref Range Status 05/25/2022 0.62 0.52 - 1.04 mg/dL Final 05/17/2021 0.77 0.52 - 1.04 mg/dL Final GFR Estimate Date Value Ref Range Status 05/25/2022 >90 >60 mL/min/1.73m2 Final Comment: Effective November 02, 2021 eGFRcr in adults is calculated using the 2020 CKD- EPI creatinine equation which includes age and gender (Yulia johnson al., NEJM, DOI: 10.1056/OYSEpv4530264) 05/17/2021 >90 >60 mL/min/[1.73_m2] Final Comment: Non GFR Calc Starting 10/30/2018, serum creatinine based estimated GFR (eGFR) will be calculated using the Chronic Kidney Disease Epidemiology Collaboration (CKD-EPI) equation. Calcium Date Value Ref Range Status 05/25/2022 8.4 (L) 8.5 - 10.1 mg/dL Final 05/17/2021 8.8 8.5 - 10.1 mg/dL Final Nausea: Current medications include: Prilosec (omeprazole) 20 mg twice daily (recently increased from once daily). Increased to see if this would help with nausea/cough. Has ondansetron to take as needed; needing a few times per week. Helps sometimes. Referred to ENT - has not heard yet to schedule. Today's Vitals: LMP 12/11/2021 (Exact Date) Post Discharge Medication Reconciliation Status: discharge medications reconciled, continue medications without change. I spent 30 minutes with this patient today. All changes were made via collaborative practice agreement with Aydee Burton APRN CNP. A copy of the visit note was provided to the patient's provider(s). The patient was sent via untapt a summary of these recommendations. Niyah Decker , Pharm D [phone] (phone) Medication Therapy Management Pharmacist Telemedicine Visit Details Type of service: Telephone visit Start Time: 300pm End Time: 330pm Originating Location (patient location): [place] Distant Location (provider location): [facility] Medication Therapy Recommendations Bilateral occipital neuralgia Current Medication: gabapentin (NEURONTIN) 300 MG capsule Rationale: Undesirable effect - Adverse medication event - Safety Recommendation: Change Medication Status: Accepted per CPA documented in this encounter Plan of Treatment Upcoming Encounters Date Type Specialty Care Team Description 09/26/2022 Appointment Speech Therapy Obdulio Barrera MD [address] [facility] [address] [place] [address] Anabel Chew, GREIGE MENDER [address] [place] [address] 09/27/2022 Therapy Visit Physical Therapy Luisana Watkins, PT [address] [place] [address] 09/29/2022 Virtual Visit Pain & Palliative Marilia Deluna, [facility] PhD [address] [place], [place] [address] 09/30/2022 Office Visit Family Practice Aydee Burton, DESKTOP SUPPORT MANAGER SLIMER [address] [place], [place] [address] 10/03/2022 Therapy Visit Physical Therapy Una Reardon, PT [address] [place] [phone] 10/10/2022 Hospital Encounter Surgery Lesly Celaya MD [address] [place], [place] [phone] 10/10/2022 Office Visit Surgery Lesly Celaya MD [address] [place] [address] Ninoska Flowers, PA-C [address] [place] [address] 10/10/2022 Surgery Surgery Lesly Celaya, EXCISION, MASSES - back, abdomen, [address] right lower [facility] [place] [address] 10/11/2022 Virtual Visit Clari uS, [facility] [address] [id number] [place], [place] [address] 10/14/2022 Appointment Speech Therapy Anabel Chew, GREIGE MENDER [facility] [address] [facility] [address] [place] [address] 10/21/2022 Office Visit Pulmonology Obdulio Barrera MD [address] [facility] [address] [place] [address] 10/25/2022 PRE VISIT ENT Charo Burton MD Previsit [address] [place] [address] 10/25/2022 Office Visit ENT Charo Burton MD [address] [place] [address]245 10/25/2022 Office Visit ENT Provider, Jeannette 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 Bench Grinder 10/28/2022 Appointment Speech Therapy Anabel Chew, GREIGE MENDER [address] [address] 11/17/2022 Appointment Speech Therapy Anabel Chew, GREIGE MENDER [address] [address]69[address] 12/23/2022 Office Visit Neurology Colby Yeung MD [address] [place] [address] Scheduled Procedures Name Priority Associated Diagnoses Date/Time EXCISION, MASS, TORSO Lipoma of skin and subcuta neous 10/10/2022 7:30 AM FINAL FINISHER tissue documented as of this encounter Visit Diagnoses Diagnosis Bilateral occipital neuralgia - Primary Other syndromes affecting cervical regio n Major depressive disorder, remission sta tus unspecified, unspecified whether recurrent SHAMEKA (generalized anxiety disorder) Generalized anxiety disorder PTSD (post-traumatic stress disorder) Posttraumatic stress disorder Severe asthma, unspecified whether compl icated, unspecified whether persistent Nausea Nausea alone Lipoma of skin and subcutaneous tissue Lipoma of other skin and subcutaneous ti ssue documented in this encounter Additional Health Concerns Assessment Noted Time PHQ-9 Depression Total Score: 19 06/14/2022 3:18 PM CD T documented as of this encounter Care Teams Quenching Machine Operator Relationship Specialty Start Date End Date Aydee Burton, PCP - General Nurse Practitioner - 05/17/21 DESKTOP SUPPORT MANAGER SLIMER Family [address] [place], [place] [phone] Aydee Burton, Assigned PCP 04/28/21 DESKTOP SUPPORT MANAGER SLIMER [address] [place], [place] [address] Louisa Hood, Assigned Neuroscience 07/11/21 DESKTOP SUPPORT MANAGER SLIMER Provider [address] [place], [place] [address] [place], Assigned Sleep 08/01/21 Angel Turcios, Provider [address] [place], [place] [address] Lesly Celaya MD Assigned Surgical 09/05/21 [address] Provider [place], [place] [phone] Tawana Patel [facility] 09/30/21 Worker Ramses Mcpherson Assigned OBGYN 11/07/21 MD Onesimo Provider [address] [place], [place] [address] Obdulio Barrera MD Critical Care 01/24/[address] [place] [phone] Obdulio Barrera, Assigned Pulmonology 02/06/22 MD Provider [address] [phone] Lesvia Stanley, EP Cardiac Rehabilitation 03/03/22 03/03/23 [facility] Therapist [address] [id number] Marilia Deluna, PhD Assigned Behavioral 02/20/22 [address] [facility] [place] [address] Niyah Decker, [facility] Pharmacist Pharmacist 03/07/[address] [place] [address] 8[address] [place], [place] [address] Lesvia Stanley, EP Cardiac Rehabilitation 03/17/22 03/17/23 [facility] Therapist [address] [address] Niyah Warner, Lead Order Tracer Primary Care - CC 06/27/22 RN Delia Avila, Pharmacist Pharmacist 06/07/[address] [address] Delia Avila, Assigned [place] 06/11/2206/24 [facility] Pharmacist [address] [place] [phone] Mago Swift, [facility] Lead Order Tracer Fish Skinning Machine Feeder - 08/05/21 Clinical documented as of this encounter
--- OUTSIDE RECORDS SUMMARY | 2022-09-21 04:01 | XMS_ITS | Encounter Summary ---
:1980 Author Organization [facility] Address [address] [place] [address] Care Team Providers Name Role Phone Aydee Burton MAGAZINE REPAIRER WAISTLINE JOINER OVERLOCK Primary Care Provider Aydee Burton APRN WAISTLINE JOINER OVERLOCK Unavailable [phone] Louisa Hood MAGAZINE REPAIRER WAISTLINE JOINER OVERLOCK Unavailable [phone] Angel Hannah MD Unavailable Lesly Celaya MD Unavailable Tawana Patel MA Unavailable Unavailable Ramses Mcpherson MD Unavailable [phone] Obdulio Barrera MD Unavailable [phone] Obdulio Barrera MD Unavailable [phone] Lesvia Stanley Unavailable Marilia Deluna PhD Unavailable Niyah Decker [facility] Unavailable Clari Poole [facility] Unavailable Lesvia Stanley EP Unavailable Niyah Warner RN Unavailable DaniiparamOhDeliakaylee Leal [facility] Unavailable [phone] DaniiparamDelia [facility] Unavailable [phone] Mago Swift [facility] Unavailable Niyah Decker [facility] Unavailable EvertonLeela davis [facility] Unavailable SchwNiyah grossman [facility] Unavailable Reason for Visit Reason Onset Date Comments Refill Request 06/13/2022 Encounter Details Date Type Department Care Team Description 06/13/2022 Refill M [facility] Aydee Burton, Refill Request [address] [address] [place], [place] [phone] [phone] Social History Tobacco Use Types Packs/Day Years [...] How often do you attend religious or pentecostal services? Never 08/05/2021 Do you [...] at Date Recorded Female 11/09/2021 7:53 PM ROOF TILER COVID-19 Exposure Response Date Recorded In the last 10 days, have you been in contact with No / Unsu re 08/16/2022 11:19 AM CDT someone who was confirmed or suspected to have Coronavirus/COVID-19? documented as of this encounter Miscellaneous Notes Telephone Encounter - Ciara Montejo RN - 06/13/2022 5:08 PM CDT Refused-too soon-has 60 days worth Disp Refills Start End AARON gabapentin (NEURONTIN) 300 MG capsule 240 capsule 0 05/27/2022 Patient has upcoming appointment 06/14/22 Ciara Mg RN [facility] Triage documented in this encounter Plan of Treatment Upcoming Encounters Date Type Specialty Care Team Description 09/26/2022 Appointment Speech Therapy Obdulio Barrera MD [address] [facility] [address] [place] [address] Anabel Chew, ROAD TRAFFIC CONTROLLER [facility] [address] [place] [address] 396 [place], [place] [address] 09/27/2022 Therapy Visit Physical Therapy Luisana Watkins, PT [address] [place] [address] 09/29/2022 Virtual Visit Pain & Palliative Marilia Deluna, Care PhD [address] [place], [place] [address] 09/30/2022 Office Visit Family Practice Aydee Burton, MAGAZINE REPAIRER WAISTLINE JOINER OVERLOCK [address] [place] [address] 10/03/2022 Therapy Visit Physical Therapy Una Reardon, PT [address] [place] [phone] 10/10/2022 Hospital Encounter Surgery Lesly Celaya MD [address] [place], [place] [phone] 10/10/2022 Office Visit Surgery Lesly Celaya MD [address] [place] [address] Ninoska Flowers, PA-C [address] [place] [address] 10/10/2022 Surgery Surgery Lesly Celaya, EXCISION, MASSES - MD back, abdomen, [address] right [place] [address] 10/11/2022 Virtual Visit Clari Su, [facility] [address] [phone] [place], [place] [address] 10/14/2022 Appointment Speech Therapy Anabel Chew, ROAD TRAFFIC CONTROLLER [facility] [address] [facility] 396 [place], [place] [address] 10/21/2022 Office Visit Pulmonology Obdulio Barrera MD 420 [facility] 276 [place], [place] [address] 10/25/2022 PRE VISIT ENT Charo Burton MD Previsit [address] [place] [address] 10/25/2022 Office Visit ENT Charo Burton MD [address] [place], [place] [address] 10/25/2022 Office Visit ENT Provider, Jeannette 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 Mobile Disc Jockey 10/28/2022 Appointment Speech Therapy Anabel Chew, ROAD TRAFFIC CONTROLLER [address] [address] 11/17/2022 Appointment Speech Therapy Anabel Chew, ROAD TRAFFIC CONTROLLER [address] [address] 12/23/2022 Office Visit Neurology Colby Yeung MD [address] [place] [place] [address] Scheduled Procedures Name Priority Associated Diagnoses Date/Time EXCISION, MASS, TORSO Lipoma of skin and subcuta neous 10/10/2022 7:30 AM ROOF TILER tissue documented as of this encounter Visit Diagnoses Diagnosis Bilateral occipital neuralgia Other syndromes affecting cervical regio n Lipoma of skin and subcutaneous tissue Lipoma of other skin and subcutaneous ti ssue documented in this encounter Additional Health Concerns Assessment Noted Time PHQ-9 Depression Total Score: 19 05/27/2022 1:35 PM CD T documented as of this encounter Care Teams Public Aid Eligibility Assistant Relationship Specialty Start Date End Date Aydee Burton, PCP - General Nurse Practitioner - 05/17/21 MAGAZINE REPAIRER WAISTLINE JOINER OVERLOCK Family [address] [place], [place] [phone] Aydee Burton, Assigned PCP 04/28/21 MAGAZINE REPAIRER WAISTLINE JOINER OVERLOCK [address] [place], [place] [phone] Louisa Hood, Assigned Neuroscience 07/11/21 MAGAZINE REPAIRER WAISTLINE JOINER OVERLOCK Provider [address] [place], [place] [address] [place], Assigned Sleep 08/01/21 Angel Turcios, Provider [address] [place], [place] [address] Lesly Celaya MD Assigned Surgical 09/05/21 [address] [facility] [place] [address] Tawana Patel MA [facility] 09/30/21 Worker Ramses Mcpherson Assigned OBGYN 11/07/21 MD Onesimo Provider [address] [place], [place] [address] Obdulio Barrera MD Critical Care 01/24/22 420 [facility] 276 [place], [place] [address] Obdulio Barrera, Assigned Pulmonology 02/06/22 Provider 420 [facility] [address] [place], [place] [address] Lesvia Stanley EP Cardiac Rehabilitation 03/03/22 03/03/23 [facility] Therapist [address] [place] [place] [place] [address] Marilia Deluna, PhD Assigned Behavioral 02/20/22 [address] [facility] Provider [place], [place] [address] Niyah Decker, [facility] Pharmacist Pharmacist 03/07/22 420 [facility] [address] [place], [place] [address] Clari Poole, Pharmacist Pharmacist 03/07/22 06/15/22 [facility] [address] [facility] [place] [address] Lesvia Stanley, GHADA Cardiac Rehabilitation 03/17/22 03/17/23 [facility] Therapist [address] [place], [place] [address] Niyah Warner, Lead Farm General Manager Primary Care - CC 06/27/22 RN Delia Avila, Pharmacist Pharmacist 06/07/[address] [address] Delia Avila, Assigned MTM 06/11/2206/24 [facility] Pharmacist [address] [place] [phone] Mago Swift [facility] Lead Farm General Manager Sql Developer Dba - 08/05/21 Clinical Niyah Decker, [facility] Assigned MTM 06/25/22 07/29/22 420 [facility] [address] Pharmacist [place], [place] [address] Leela Jarvis [facility] Pharmacist 07/26/22 05/15/23 [address] [facility] [place] [address] Niyah Decker, [facility] Assigned MTM 08/10/22 420 [facility] [address]12 [place] [address] documented as of this encounter
--- OUTSIDE RECORDS SUMMARY | 2022-09-21 04:01 | XMS_ITS | Encounter Summary ---
:1980 Author Organization [facility] Address [address] [place] [address] Care Team Providers Name Role Phone Aydee Burton ASSISTANT CURATOR CHALK MACHINE OPERATOR Primary Care Provider Aydee Burton APRN CHALK MACHINE OPERATOR Unavailable [phone] Louisa Hood ASSISTANT CURATOR CHALK MACHINE OPERATOR Unavailable [phone] Angel Hannah MD Unavailable Lesly Celaya MD Unavailable Tawana Patel MA Unavailable Unavailable Ramses Mcpherson MD Unavailable [phone] Obdulio Barrera MD Unavailable [phone] Obdulio Barrera MD Unavailable [phone] Lesvia Stanley Unavailable Marilia Deluna PhD Unavailable Niyah Decker [facility] Unavailable Lesvia Stanley Unavailable Niyah Warner RN Unavailable Delia Avila [facility] Unavailable [phone] Delia Avila [facility] Unavailable [phone] Mago Swift [facility] Unavailable Reason for Referral Diagnostic Imaging MRI (Routine) - Closed Specialty Diagnoses / Procedures Referred By Contact Refer red To Contact Diagnoses Cervical radiculopathy Caleb Dewey MD Procedures MR Cervical Spine w/o Contrast [address] [place] [address] Referral ID Status Reason Start Date Expiration Date Visits Requ ested Visits Authorized [id number] Closed 06/23/2022 06/23/2023 1 1 Reason for Visit Reason Comments Pain Encounter Details Date Type Department Care Team Description 06/23/2022 Office Visit [facility] Caleb Dewey, Chroni c pain syndrome (Primary Dx); Pain Management Cervicogenic headache; [place] [address] Cervical radiculopathy; [address] [place], [place] Neuropathic pain [address] [address] [place], [place] [phone] Social History Tobacco Use Types Packs/Day Years [...] How often do you attend religious or orthodox services? Never 08/05/2021 Do you belong to [...] at Date Recorded Female 11/09/2021 7:53 PM RN CARDIAC REHAB COVID-19 Exposure Response Date Recorded In the last 10 days, have you been in contact with No / Unsu re 06/23/2022 11:31 AM CDT someone who was confirmed or suspected to have Coronavirus/COVID-19? documented as of this encounter Last Filed Vital Signs Vital Sign Reading Time Taken Comments Blood Pressure 111/72 06/23/2022 11:36 AM CDT Pulse 101 06/23/2022 11:36 AM CDT Temperature - - Respiratory Rate - - Oxygen Saturation 97% 06/23/2022 11:36 AM CDT Inhaled Oxygen Concentration - - Weight 95.3 kg (210 lb 1.6 oz) 06/23/2022 11:36 AM CDT Height - - Body Mass Index 32.91 06/14/2022 3:05 PM CDT documented in this encounter Patient Instructions Patient InstructionsCaelb Dewey MD - 06/23/2022 11:30 AM CDT Discontinue Gabapentin and start Lyrica 25mg twice a day. This is less sedating and has less side effects. Discuss decreasing your seroquel with your psychiatrist. Go to the neurologist. We could discuss doing a radiofrequency ablation based on what the neurologist says. I ordered a neck MRI Call to schedule this. [facility] IMAGING: [facility] locations: [facility] Call: [phone] 08/10/2022 @ 1:30PM follow up appointment. I will call you with the results of the MRI before this. Caleb Dewey MD documented in this encounter Progress Notes Caleb Dewey MD - 06/23/2022 11:30 AM CDT Images from the original note were not included. [facility] Date of visit: 06/23/2022 Chief complaint: Chief Complaint Patient presents with ??? Pain Interval history: Marta Hill is a 42 year old female last seen by DR ANAYA for FOLLOW UP on 02/24/2022. Last FOLLOW UP with me - today is the INITIAL CONSULT. Since her last visit, Marta Hill reports: - Transfer of care appointment for previous patient of Dr. Anaya. - Pain is primarily in her neck and back of her head. Her neck feels tight and she cannot straightenher head out. 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 - She had PT for her neck here in the past and it was helpful at the time. - She has an appointment to see a neurologist at the [facility] for her headaches and has this scheduled for next week. - She fell at work and broke her left elbow (work comp) Dr. Linder at [facility]. She has severe asthma and may not be a candidate to have her screws taken out. She is seeing her shop director later this monthand hopes to be cleared for surgery. - Imaging Nurse is Dr. Barrera through [facility]. - Entire head hurts, neck and jaw, left arm and right knee - Pain in face is a burning sharp pain. Nothing makes this better and she cannot tolerate it. ??- Last had b/l occipital never blocks on 12/01/2021 and this helped with neck and head pain a little for a couple weeks. - She is trying to decrease her Gabapentin because she gets sedated on it. - Lives in [place] [facility] [place] minutes. - Kids are 20, 18, 15, 13, 11 and 10 years old and she is . This went through in 2019 and she has shared custody 50:[address]. [place] [address] INTERPRETER REVIEWED TODAY: YES Gabapentin 300mg #240 05/15/2022 MEDICATIONS FOR PAIN: WELLBUTRIN XL 300MG DAILY CYMBALTA 60MG BID LAMICTAL 300MG DAILY SEROQUEL 200MG AT BEDTIME AND 100MG PRN GABAPENTIN 300MG AM AND 300MG AT BEDTIME ZOFRAN 4MG PRN ROBAXIN 500-750mg TID PRN - stopped taking this because of anger management. INJECTIONS/SURGERY: Occipital nerve blocks 12/01/2021 trigger point injection Nov 2021 BOTOX injections many years ago at [facility] - made SHETH's worse IMAGING: NONE LABS: NONE Medications: Current Outpatient Medications Medication [...] dyspnea or wheezing 90 mL 5 ??? budesonide-formoterol (SYMBICORT) 160-4.5 MCG/ACT Inhaler Inhale [...] Bedtime 2 tablets - 120mg total ??? fluticasone (FLONASE) 50 MCG/ACT nasal spray Use 2 spray(s) in each nostril once daily 16 g 11 ??? gabapentin (NEURONTIN) 100 MG capsule Take 200 mg every morning. (In addition to 300 mg capsules(1 capsule) at bedtime) 60 Units 3 ??? gabapentin (NEURONTIN) 300 MG capsule Take 1 capsule (300 mg) by mouth At Bedtime 240 capsule 0 ??? ipratropium - albuterol 0.5 mg/2.5 mg/3 [...] for muscle spasms 90 tablet 1 ??? omeprazole (PRILOSEC) [address] capsule Take 1 capsule (20 mg) by mouth 2 times daily (Patient taking differently: Take 20 mg by mouth daily) 60 capsule 1 ??? ondansetron (ZOFRAN ODT) 4 MG ODT tab Take 1 tablet (4 mg) by mouth every 8 hours as needed for nausea 20 tablet 0 ??? QUEtiapine (SEROQUEL) 100 MG tablet [...] negative, except as otherwise noted. Physical Exam: Blood pressure 111/72, pulse 101, weight 95.3 kg (210 lb 1.6 oz), last menstrual period 12/11/2021, SpO2 97 %, not currently . GENERAL: Healthy, alert and [...] chronic facial pain, neck pain and headaches. 1. Chronic pain syndrome Left arm pain: She sustained a radial head fracture of the left elbow in dec 2020 and are scheduled for surgery to have screws removed. Need pulmonary clearance first secondary to asthma. Mental Health - the patient's mental health concerns, specifically??anxiety, stress, depression, affect her experience of pain and contribute to her clinically significant distress. Recommend continuedclose follow up with psychiatry. Recommend that she discuss decreasing Seroquel with her psychiatrist. She is overly sedated all day.This was originally started secondary to anger outbursts and has been helpful in reducing these, however, she also stopped taking robaxin at the same time and that may have been a contributing factor. 2. Cervicogenic headache Marta has had a long standing history of chronic neck pain and headaches and has been diagnosed with occipital neuralgia at [facility] years ago. Currently they are experiencing daily holocephalicheadaches with mixed features of occipital neuralgia and tension type headaches that flare-up with activity, specifically at work. They are neurologically intact on exam with exception of mildly reduced sensation in the left hand compared to the right. TPI/ONB completed with only mild improvement in symptoms. Recommend establishing care with a new neurologist - previously went to [facility] and has tried botox in the past without success. 3. Cervical radiculopathy She continues to have severe neck pain with radiation to her shoulders bilaterally. These symptoms have also been present for years and exacerbate her headaches. On exam their cervical ROM is mildly reduced in side bending and rotation to the right. They have trigger points in the periscapular muscleswhich are worse on the right side as well. TPI completed with only mild improvement. Recommending she get a MRI to consider injection options including possibly VITALY vs medial branch block to RFA. I will call her with the results. - MR Cervical Spine w/o Contrast; Future 4. Neuropathic pain Discontinue Gabapentin and start low dose lyrica. I am hoping there will be less sedation with this medication. - pregabalin (LYRICA) 25 MG capsule; Take 1 capsule (25 mg) by mouth 2 times daily Dispense: 60 capsule; Refill: 0 ?? MEDICATIONS: Orders Placed This Encounter Medications ??? pregabalin (LYRICA) 25 MG capsule Sig: Take 1 capsule (25 mg) by mouth 2 times daily Dispense: 60 capsule Refill: 0 FOLLOW UP: 08/10/2022 @ 1:30PM BILLING TIME DOCUMENTATION: The total TIME spent on this patient on the date of the encounter/appointment was 64 minutes. TOTAL TIME includes: Time spent preparing to see the patient (reviewing records and tests) - 4 min Time spent face to face (or over the phone) with the patient - 46 min Time spent ordering tests, medications, procedures and referrals - 2 min Time spent Referring and communicating with other healthcare professionals - 0 min Time spent documenting clinical information in Epic - 12 min CALEB DEWEY MD Pain Management & Addiction Medicine documented in this encounter Plan of Treatment Upcoming Encounters Date Type Specialty Care Team Description 09/26/2022 Appointment Speech Therapy Obdulio Barrera MD 420 [facility] 276 [place], [place] [address] Anabel Chew, GREEN JOBS TRAINER [place] 7[address] [facility] [address] [place], [place] [address] 09/27/2022 Therapy Visit Physical Therapy Luisana Watkins, PT [address] [place] [address] 09/29/2022 Virtual Visit Pain & Palliative Marilia Deluna Care PhD [address] [place], [place] [address] 09/30/2022 Office Visit Family Practice Aydee Burton, ASSISTANT CURATOR [facility] [address] [place] [address] 10/03/2022 Therapy Visit Physical Therapy Una Reardon, PT [address] [place] [address] 10/10/2022 Hospital Encounter Surgery Lesly Celaya MD [address] [place] [address] 10/10/2022 Office Visit Surgery Lesly Celaya MD [address] [place] [address] Ninoska Flowers, PHILIPPE [address] [place], [place] [phone] 10/10/2022 Surgery Surgery Lesly Celaya, EXCISION, MASSES - MD back, abdomen, [address] extremity [place], [place] [phone] 10/11/2022 Virtual Visit Clari Su, [facility] [address] [id number] [place], [place] [address] 10/14/2022 Appointment Speech Therapy Anabel Chew, GREEN JOBS TRAINER [facility] 516 [facility] 396 [place], [place] [address] 10/21/2022 Office Visit Pulmonology Obdulio Barrera MD 420 [facility] [address] [place], [place] [phone] 10/25/2022 PRE VISIT ENT Charo Burton MD Previsit [address] [place], [place] [phone] 10/25/2022 Office Visit ENT Charo Burton MD [address] [place] [address] 10/25/2022 Office Visit ENT Provider, Jeannette 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 Color Corrector 10/28/2022 Appointment Speech Therapy Anabel Chew, GREEN JOBS TRAINER [address] [address] 11/17/2022 Appointment Speech Therapy Anabel Chew, GREEN JOBS TRAINER [address] [address] 12/23/2022 Office Visit Neurology Colby Yeung MD [address] [place] [address] Scheduled Procedures Name Priority Associated Diagnoses Date/Time EXCISION, MASS, TORSO Lipoma of skin and subcuta neous 10/10/2022 7:30 AM RN CARDIAC REHAB tissue documented as of this encounter Results MR Cervical Spine w/o [...] MR CERVICAL SPINE W/O CONTRAST LOCATION: [facility] DATE/TIME: 07/08/2022 7:24 PM INDICATION: [...] MR CERVICAL SPINE W/O CONTRAST LOCATION: [facility] DATE/TIME: 07/08/2022 7:24 PM INDICATION: [...] Slight disc osteophyte complex at C6- C7. Caleb Dewey MD IMG MRI ORDERABLES documented in this encounter Visit Diagnoses Diagnosis Chronic pain syndrome - Primary Cervicogenic headache Headache Cervical radiculopathy Brachial neuritis or radiculitis nos Neuropathic pain Neuralgia, neuritis, and radiculitis, un specified Cervical radiculopathy Brachial neuritis or radiculitis nos Lipoma of skin and subcutaneous tissue Lipoma of other skin and subcutaneous ti ssue documented in this encounter Additional Health Concerns Assessment Noted Time PHQ-9 Depression Total Score: 19 06/14/2022 3:18 PM CD T documented as of this encounter Care Teams Bridge/Structure Inspection Team Leader Relationship Specialty Start Date End Date Aydee Burton, PCP - General Nurse Practitioner - 05/17/21 ASSISTANT CURATOR CHALK MACHINE OPERATOR Family [address] [place] [address]002 Aydee Burton, Assigned PCP 04/28/21 ASSISTANT CURATOR CHALK MACHINE OPERATOR [address] [place] [id number] Louisa Hood, Assigned Neuroscience 07/11/21 ASSISTANT CURATOR CHALK MACHINE OPERATOR Provider [address] [place] [address] [place], Assigned Sleep 08/01/21 Angel Turcios, Provider [address] [place], [place] [address] Lesly Celaya MD Assigned Surgical 09/05/21 [address] Provider [place], [place] [address] Tawana Patel MA [facility] 09/30/21 Worker Ramses Mcpherson Assigned OBGYN 11/07/21 MD Onesimo Provider [address] [place], [place] [phone] Obdulio Barrera MD Critical Care 01/24/[address] [place] [address] 276 [place], [place] [address] Obdulio Barrera, Assigned Pulmonology 02/06/22 MD Provider [address] [place] [address] 276 [place], [place] [address] Lesvia Stanley, GHADA Cardiac Rehabilitation 03/03/22 03/03/23 [facility] Therapist [address] [place] [place] [address] Marilia Deluna, PhD Assigned Behavioral 02/20/22 [address] [facility] [place] [address] Niyah Decker, [facility] Pharmacist Pharmacist 03/07/[address] [place] [address] [address] [place], [place] [address] Lesvia Stanley, GHADA Cardiac Rehabilitation 03/17/22 03/17/23 [facility] Therapist [address] [address] Niyah Warner, Lead Home Hospice Aide Primary Care - CC 06/27/22 RN Delia Avila, Pharmacist Pharmacist 06/07/[address] [address] Delia Avila, Assigned [place] 06/11/2206/24 [facility] Pharmacist [address] [place] [address] Mago Swift, [facility] Lead Home Hospice Aide On Site Services Specialist - 08/05/21 Clinical documented as of this encounter
--- OUTSIDE RECORDS SUMMARY | 2022-09-21 04:01 | XMS_ITS | Encounter Summary ---
:1980 Author Organization [facility] Address [address] [place] [address] Care Team Providers Name Role Phone Aydee Burton STATION DETECTIVE LOSS PREVENTION OFFICER Primary Care Provider Aydee Burton APRN LOSS PREVENTION OFFICER Unavailable [phone] Louisa Hood STATION DETECTIVE LOSS PREVENTION OFFICER Unavailable [phone] Angel Hannah MD Unavailable Lesly Celaya MD Unavailable Tawana Patel MA Unavailable Unavailable Ramses Mcpherson MD Unavailable [phone] Obdulio Barrera MD Unavailable [phone] Obdulio Barrera MD Unavailable [phone] Lesvia Stanley Unavailable Marilia Deluna PhD Unavailable Niyah Decker [facility] Unavailable Lesvia Stanley Unavailable Niyah Warner RN Unavailable Delia Avila [facility] Unavailable [phone] Delia Avila [facility] Unavailable [phone] JamisonMago [facility] Unavailable Encounter Details Date Type Department Care Team Description 06/23/2022 Travel Social History Tobacco Use Types Packs/Day [...] How often do you attend muslim or latter-day services? Never 08/05/2021 Do you belong to [...] at Date Recorded Female 11/09/2021 7:53 PM SCIENCE AND OPERATIONS OFFICER COVID-19 Exposure Response Date Recorded In the last 10 days, have you been in contact with No / Unsu re 06/23/2022 11:31 AM CDT someone who was confirmed or suspected to have Coronavirus/COVID-19? documented as of this encounter Plan of Treatment Upcoming Encounters Date Type Specialty Care Team Description 09/26/2022 Appointment Speech Therapy Obdulio Barrera MD 420 [facility] 276 [place], [place] [address] Anabel Chew, CREDIT RISK MODELER [facility] 516 [facility] 396 [place] [address] 09/27/2022 Therapy Visit Physical Therapy Luisana Watkins, PT [address] [place] [address] 09/29/2022 Virtual Visit Pain & Palliative Marilia Deluna, [facility] PhD [address] [place], [place] [address] 09/30/2022 Office Visit Family Practice Aydee Burton, STATION DETECTIVE LOSS PREVENTION OFFICER [address] [place] [phone] 10/03/2022 Therapy Visit Physical Therapy Una Reardon, PT [address] [place] [address] 10/10/2022 Hospital Encounter Surgery Lesly Celaya MD [address] [place], [place] [address] 10/10/2022 Office Visit Surgery Lesly Celaya MD [address] [place], [place] [address] Ninoska Flowers PA-C [address] [facility] [address] [place] [address] 10/10/2022 Surgery Surgery Lesly Celaya, EXCISION, MASSES - MD back, abdomen, [address] lower [facility] extremity [place], [place] [phone] 10/11/2022 Virtual Visit Clari Su, [facility] [address] [place] [address] 10/14/2022 Appointment Speech Therapy Anabel Chew, CREDIT RISK MODELER [address] [address] 10/21/2022 Office Visit Pulmonology Obdulio Barrera MD [address] [address] 10/25/2022 PRE VISIT ENT Charo Burton MD Previsit 9 [place], [place] [address] 10/25/2022 Office Visit ENT Charo Burton MD [address] [place], [place] [address] 10/25/2022 Office Visit ENT Provider, 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 [employer] Art Teacher 10/28/2022 Appointment Speech Therapy Anabel Chew, CELINE [address] [address] 11/17/2022 Appointment Speech Therapy Anabel Chew SLP [address] [address] 12/23/2022 Office Visit Neurology Colby Yeung MD [address] [address] Scheduled Procedures Name Priority Associated Diagnoses Date/Time EXCISION, MASS, TORSO Lipoma of skin and subcuta neous 10/10/2022 7:30 AM SCIENCE AND OPERATIONS OFFICER tissue documented as of this encounter Visit Diagnoses Not on filedocumented in this encounter Additional Health Concerns Assessment Noted Time PHQ-9 Depression Total Score: 19 06/14/2022 3:18 PM CD T documented as of this encounter Care Teams Scientific Manager Relationship Specialty Start Date End Date Aydee Burton, PCP - General Nurse Practitioner - 05/17/21 STATION DETECTIVE LOSS PREVENTION OFFICER Family [address] [place], [place] [phone] Aydee Burton, Assigned PCP 04/28/21 STATION DETECTIVE LOSS PREVENTION OFFICER [address] [place], [place] [phone] Louisa Hood, Assigned Neuroscience 07/11/21 STATION DETECTIVE LOSS PREVENTION OFFICER Provider [address] [place], [place] [address] [place], Assigned Sleep 08/01/21 Angel Turcios, Provider [address] [place], [place] [address] Lesly Celaya MD Assigned Surgical 09/05/21 [address] Provider [place], [place] [address] Tawana Patel [facility] 09/30/21 Worker Ramses Mcpherson Assigned OBGYN 11/07/21 MD Onesimo Provider [address] [place], [place] [address] Obdulio Barrera MD Critical Care 01/24/[address] [place] [phone] Obdulio Barrera, Assigned Pulmonology 02/06/22 MD Provider [address] [id number] Lesvia Stanley, EP Cardiac Rehabilitation 03/03/22 03/03/23 [facility] Therapist [address] [address] Marilia Deluna, PhD Assigned Behavioral 02/20/22 [address] [facility] Health Provider [place], [place] [address] Niyah Decker, [facility] Pharmacist Pharmacist 03/07/[address] [place] [address] 8[address] [place], [place] [address] Lesvia Stanley, EP Cardiac Rehabilitation 03/17/22 03/17/23 [facility] Therapist [address] [address] Niyah Warner, Lead Product Development Scientist Primary Care - CC 06/27/22 RN Delia Avila, Pharmacist Pharmacist 06/07/[address] [address] Delia Avila, Assigned MT 06/11/2206/24 [facility] Pharmacist [address] [place] [address] Mago Swift, [facility] Lead Product Development Scientist Purse Framer - 08/05/21 Clinical documented as of this encounter
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
--- OUTSIDE RECORDS SUMMARY | 2022-09-21 04:02 | XMS_ITS | Encounter Summary ---
:1980 Author Organization [employer] Address [address] [place] [address] Care Team Providers Name Role Phone Aydee Burton RENAL MEDICINE SPECIALIST VACUUM CLEANER REPAIRER Primary Care Provider Aydee Burton APRN VACUUM CLEANER REPAIRER Unavailable [phone] Louisa Hood RENAL MEDICINE SPECIALIST VACUUM CLEANER REPAIRER Unavailable [phone] Clari Ruiz [facility] Unavailable Angel Hannah MD Unavailable Lesly Celaya MD Unavailable Tawana Patel MA Unavailable Unavailable Ramses Mcpherson MD Unavailable [phone] Obdulio Barrera MD Unavailable [phone] Obdulio Barrera MD Unavailable [phone] Lesvia Stanley Unavailable Marilia Deluna PhD Unavailable Niyah Decker [facility] Unavailable Clari Poole [facility] Unavailable Lesvia Stanleyn EP Unavailable Joseph Clari Jocelyn [facility] Unavailable [phone] Niyah Warner RN Unavailable JamisonMago [facility] Unavailable Encounter Details Date Type Department Care Team Description 05/25/2022 Travel Social History Tobacco Use Types Packs/Day [...] How often do you attend alevism or spiritism services? Never 08/05/2021 Do you belong to [...] at Date Recorded Female 11/09/2021 7:53 PM DEPORTATION EXAMINER COVID-19 Exposure Response Date Recorded In the last 10 days, have you been in contact with No / Unsu re 05/25/2022 10:05 AM CDT someone who was confirmed or suspected to have Coronavirus/COVID-19? documented as of this encounter Plan of Treatment Upcoming Encounters Date Type Specialty Care Team Description 09/26/2022 Appointment Speech Therapy Obdulio Barrera MD 420 [facility] [address] [place], [place] [address] Anabel Chew, SHOPFITTER [facility] [address] [facility] [address] [place], [place] [address] 09/27/2022 Therapy Visit Physical Therapy Luisana Watkins, PT [address] [place] [address] 09/29/2022 Virtual Visit Pain & Palliative Marilia Deluna, [facility] PhD [address] [place], [place] [address] 09/30/2022 Office Visit Family Practice Aydee Burton, RENAL MEDICINE SPECIALIST VACUUM CLEANER REPAIRER [address] [place] [id number] 10/03/2022 Therapy Visit Physical Therapy Una Reardon, PT [address] [place] [address] 10/10/2022 Hospital Encounter Surgery Lesly Celaya MD [address] [place], [place] [phone] 10/10/2022 Office Visit Surgery Lesly Celaya MD [address] [place], [place] [phone] Ninoska Flowers PA-C [address] [facility] [address] [place] [address] 10/10/2022 Surgery Surgery Lesly Celaya, EXCISION, MASSES - MD back, abdomen, [address] right lower [facility] extremity [place], [place] [address] 10/11/2022 Virtual Visit Pharm Clari Stoll, [facility] [address] [place] [address] 10/14/2022 Appointment Speech Therapy Anabel Chew, SHOPFITTER [address] [address] 10/21/2022 Office Visit Pulmonology Obdulio Barrera MD [address] [address] 10/25/2022 PRE VISIT ENT Charo Burton MD Previsit [address] [place], [place] [address] 10/25/2022 Office Visit ENT Charo Burton MD [address] [place], [place] [address] 10/25/2022 Office Visit ENT Provider, 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 Materials Manager 10/28/2022 Appointment Speech Therapy Anabel Chew, CELINE [address] [address] 11/17/2022 Appointment Speech Therapy Anabel Chew SLP [address] [address] 12/23/2022 Office Visit Neurology Colby Yeung MD [address] [place] [address] Scheduled Procedures Name Priority Associated Diagnoses Date/Time EXCISION, MASS, TORSO Lipoma of skin and subcuta neous 10/10/2022 7:30 AM DEPORTATION EXAMINER tissue documented as of this encounter Visit Diagnoses Not on filedocumented in this encounter Additional Health Concerns Assessment Noted Time PHQ-9 Depression Total Score: 20 05/19/2022 9:02 AM CD T documented as of this encounter Care Teams Hand Buffer Relationship Specialty Start Date End Date Aydee Burton, PCP - General Nurse Practitioner - 05/17/21 RENAL MEDICINE SPECIALIST VACUUM CLEANER REPAIRER Family [address] [place], [place] [phone] Aydee Burton, Assigned PCP 04/28/21 RENAL MEDICINE SPECIALIST VACUUM CLEANER REPAIRER [address] [place] [address] Louisa Hood, Assigned Neuroscience 07/11/21 RENAL MEDICINE SPECIALIST VACUUM CLEANER REPAIRER Provider [address] [place], [place] [phone] Clari Ruiz Pharmacist Pharmacist 08/06/21 06/07/22 [facility] [address] [place], [place] [address] [place], Assigned Sleep 08/01/21 Angel Turcios, Provider [address] [place], [place] [address] Lesly Celaya MD Assigned Surgical 09/05/21 [address] Provider [place], [place] [phone] Tawana Patel MA [facility] 09/30/21 Worker Ramses Mcpherson Assigned OBGYN 11/07/21 MD Onesimo Provider [address] [place], [place] [phone] Obdulio Barrera MD Critical Care 01/24/22 420 [facility] [address] [place], [place] [phone] Obdulio Barrera, Assigned Pulmonology 02/06/22 MD Provider 420 [facility] 276 [place], [place] [address] Lesvia Stanley, [facility] 03/03/22 03/03/23 [facility] Therapist [address] [place] [address] Marilia Deluna, PhD Assigned Behavioral 02/20/22 [address] [facility] [place] [address] Niyah Decker, [facility] Pharmacist Pharmacist 03/07/22 420 [facility] [address] [place] [address] Clari Poole, Pharmacist Pharmacist 03/07/22 06/15/22 [facility] [address] [facility] [place] [address] Lesvia Stanley, [facility] Cardiac Rehabilitation 03/17/22 03/17/23 [facility] Therapist [address] [address] Clari Ruiz Assigned [place] 04/09/22 05/27/22 Jocelyn [facility] Pharmacist [address] [place] [address] Niyah Warner, Lead Control Integration Engineer Primary Care - CC 06/27/22 RN Mago Swift, [facility] Lead Control Integration Engineer Commercial Litigation Attorney - 08/05/21 Clinical documented as of this encounter
--- OUTSIDE RECORDS SUMMARY | 2022-09-21 04:02 | XMS_ITS | Encounter Summary ---
:1980 Author Organization [employer] Address [address] [place] [address] Care Team Providers Name Role Phone Aydee Burton REPAIRER ART OBJECTS STERILE TECHNICIAN Primary Care Provider Aydee Burton APRN STERILE TECHNICIAN Unavailable [phone] Louisa Hood REPAIRER ART OBJECTS STERILE TECHNICIAN Unavailable [phone] Clari Ruiz [facility] Unavailable [phone] Angel Hannah MD Unavailable Lesly Celaya MD Unavailable Tawana Patel MA Unavailable Unavailable Ramses Mcpherson MD Unavailable [phone] Obdulio Barrera MD Unavailable [phone] Obdulio Barrera MD Unavailable [phone] Lesvia Stanley Unavailable Marilia Deluna PhD Unavailable Niyah Decker [facility] Unavailable Clari Poole [facility] Unavailable StarlaLesvia masn EP Unavailable Joseph Clari Jocelyn [facility] Unavailable [phone] Niyah Warner RN Unavailable JamisonMago [facility] Unavailable Encounter Details Date Type Department Care Team Description 05/27/2022 Travel Social History Tobacco Use Types Packs/Day [...] How often do you attend mu-ism or baptism services? Never 08/05/2021 Do you belong to [...] at Date Recorded Female 11/09/2021 7:53 PM INSURANCE EXAMINER COVID-19 Exposure Response Date Recorded In the last 10 days, have you been in contact with No / Unsu re 05/27/2022 6:09 AM CDT someone who was confirmed or suspected to have Coronavirus/COVID-19? documented as of this encounter Plan of Treatment Upcoming Encounters Date Type Specialty Care Team Description 09/26/2022 Appointment Speech Therapy Obdulio Barrera MD 420 [facility] 276 [place], [place] [address] Anabel Chew, HAT BLOCKER [facility] 516 [facility] 396 [place], [place] [address] 09/27/2022 Therapy Visit Physical Therapy Luisana Watkins, PT [address] [place] [address] 09/29/2022 Virtual Visit Pain & Palliative Marilia Deluna, [facility] PhD [address] [place], [place] [address] 09/30/2022 Office Visit Family Practice Aydee Burton, REPAIRER ART OBJECTS STERILE TECHNICIAN [address] [place] [phone] 10/03/2022 Therapy Visit Physical Therapy Una Reardon, PT [address] [place] [address] 10/10/2022 Hospital Encounter Surgery Lesly Celaya MD [address] [place], [place] [phone] 10/10/2022 Office Visit Surgery Lesly Celaya MD [address] [place], [place] [phone] Ninoska Flowers PA-C [address] [facility] [address] [place] [address] 10/10/2022 Surgery Surgery Lesly Celaya, EXCISION, MASSES - MD back, abdomen, [address] right lower [facility] extremity [place], [place] [address] 10/11/2022 Virtual Visit Pharm Clari Stoll, [facility] [address] [place] [address] 10/14/2022 Appointment Speech Therapy Anabel Chew, HAT BLOCKER [address] [address] 10/21/2022 Office Visit Pulmonology Obdulio Barrera MD [address] [address] 10/25/2022 PRE VISIT ENT Charo Burton MD Previsit [address] [place], [place] [address] 10/25/2022 Office Visit ENT Charo Burton MD [address] [place], [place] [address] 10/25/2022 Office Visit ENT Provider, 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 Lithographic Press Operator Apprentice 10/28/2022 Appointment Speech Therapy Anabel Chew, CELINE [address] [address] 11/17/2022 Appointment Speech Therapy Anabel Chew SLP [address] [address] 12/23/2022 Office Visit Neurology Colby Yeung MD [address] [place] [address] Scheduled Procedures Name Priority Associated Diagnoses Date/Time EXCISION, MASS, TORSO Lipoma of skin and subcuta neous 10/10/2022 7:30 AM INSURANCE EXAMINER tissue documented as of this encounter Visit Diagnoses Not on filedocumented in this encounter Additional Health Concerns Assessment Noted Time PHQ-9 Depression Total Score: 05/27/2022 1:35 PM CD T documented as of this encounter Care Teams Fiber Optics Engineer Relationship Specialty Start Date End Date Aydee Burton, PCP - General Nurse Practitioner - 05/17/21 REPAIRER ART OBJECTS STERILE TECHNICIAN Family [address] [place], [place] [phone] Aydee Burton, Assigned PCP 04/28/21 REPAIRER ART OBJECTS STERILE TECHNICIAN [address] [place] [address] Louisa Hood, Assigned Neuroscience 07/11/21 REPAIRER ART OBJECTS STERILE TECHNICIAN Provider [address] [place], [place] [phone] Clari Ruiz Pharmacist Pharmacist 08/06/21 06/07/22 [facility] [address] [place], [place] [address] [place], Assigned Sleep 08/01/21 Angel Turcios, Provider [address] [place], [place] [address] Lesly Celaya MD Assigned Surgical 09/05/21 [address] Provider [place], [place] [phone] Tawana Patel MA [facility] 09/30/21 Worker Ramses Mcpherson Assigned OBGYN 11/07/21 MD Onesimo Provider [address] [place], [place] [phone] Obdulio Barrera MD Critical Care 01/24/22 420 [facility] [address] [place], [place] [phone] Obdulio Barrera, Assigned Pulmonology 02/06/22 MD Provider 420 [facility] 276 [place], [place] [address] Lesvia Stanley, GHADA Cardiac Rehabilitation 03/03/22 03/03/23 [facility] Therapist [address] [place] [address] aMrilia Deluna, PhD Assigned Behavioral 02/20/22 [address] [facility] [place] [address] Niyah Decker, [facility] Pharmacist Pharmacist 03/07/22 420 [facility] [address] [place] [address] Clari Poole, Pharmacist Pharmacist 03/07/22 06/15/22 [facility] [address] [facility] [address] Lesvia Stanley, GHADA Cardiac Rehabilitation 03/17/22 03/17/23 [facility] Therapist [address] [address] Clari Ruiz Assigned [place] 04/09/22 05/27/22 Jocelyn [facility] Pharmacist [address] [place] [address] Niyah Warner, Lead County Manager Primary Care - CC 06/27/22 RN Mago Swift, [facility] Lead County Manager Publication Editor - 08/05/21 Clinical documented as of this encounter
--- OUTSIDE RECORDS SUMMARY | 2022-09-21 04:02 | XMS_ITS | Encounter Summary ---
:1980 Author Organization [facility] Address [address] [place] [address] Care Team Providers Name Role Phone Adyee Burton TILE ERECTOR CONFECTIONERY MAKER Primary Care Provider Aydee Burton APRN CONFECTIONERY MAKER Unavailable [phone] Louisa Hood TILE ERECTOR CONFECTIONERY MAKER Unavailable [phone] Clari Ruiz [facility] Unavailable [phone] Angel Hannah MD Unavailable Lesly Celaya MD Unavailable Tawana Patel MA Unavailable Unavailable Ramses Mcpherson MD Unavailable [phone] Obdulio Barrera MD Unavailable [phone] Obdulio Barrera MD Unavailable [phone] Lesvia Stanley Unavailable Marilia Deluna PhD Unavailable Niyah Decker [facility] Unavailable Clari Poole [facility] Unavailable Lesvia Stanley EP Unavailable Clari Ruiz [facility] Unavailable [phone] TimmyNiyah Vania RN Unavailable Mago Swift [facility] Unavailable Reason for Referral Diagnostic Imaging MRI (Routine) - Closed Specialty Diagnoses / Procedures Referred By Contact Refer red To Contact Radiology. Diagnoses Facial pain Raphael Ernst DO Sh Mri Procedures MR Brain w/o & w Contrast [address] [facility] [address] [place] [address] [place] [phone] Referral ID Status Reason Start Date Expiration Date Visits Requ ested Visits Authorized [id number] Closed 05/19/2022 05/19/2023 1 1 Reason for Visit Diagnostic Imaging MRI (Routine) - Closed Specialty Diagnoses / Procedures Referred By Contact Refer red To Contact Radiology. Diagnoses Facial pain Raphael Ernst DO Mri Procedures MR Brain w/o & w Contrast [address] [facility] [address] [facility] [place] [address] [place] [phone] Referral ID Status Reason Start Date Expiration Date Visits Requ ested Visits Authorized [id number] Closed 05/19/2022 05/19/2023 1 1 Encounter Details Date Type Department Care Team Description 05/27/2022 Hospital Encounter [facility] Surendra Ernst DO Facial pain [facility] [address] [facility] [address] [place] [address] [place] [id number] [phone] Social History Tobacco Use Types Packs/Day Years [...] er 08/05/2021 How often do you attend moravian or taoism services? Never 08/05/2021 Do you belong to any clubs or organizations such as moravian N o 08/05/2021 groups, unions, fraternal or [...] at Date Recorded Female 11/09/2021 7:53 PM [employer] COVID-19 Exposure Response Date Recorded In the [...] 1 vial (2.5 mg) 90 mL 5 0 07/2022 (2.5 MG/3ML) 0.083% by nebulization every [...] Take 1 vial (3 mLs) 540 mL 02/03/2022 albuterol 0.5 mg/2.5 by nebulization every [...] 100 mg by mouth 30 tablet 2 03/02/2022 100 MG tablet as needed QUEtiapine (SEROQUEL) Take 200 mg by mouth 0 200 MG tablet At Bedtime vitamin D3 Take 1 tablet by 0 (CHOLECALCIFEROL) 50 mouth daily mcg (2000 units) tablet ascorbic acid (VITAMIN Take 750 mg by mouth 0 06/16/2022 C) 250 MG CHEW daily chewable tablet benzonatate (TESSALON) Take 1 capsule (200 30 capsule 4 02/1206/06/2022 200 MG mg) by mouth 3 times capsuleIndications: daily as needed for Moderate persistent cough asthma without complication clotrimazole (MYCELEX) Place 1 lozenge (10 70 lozenge 0 03/1308/26/2022 10 MG mg) inside cheek 5 lozengeIndications: times daily for 14 Thrush days Take for 7-14 days; use 2 days after symptoms resolve. gabapentin (NEURONTIN) Take 300 mg by mouth 240 capsule 0 06/16/2022 300 MG 2 times daily capsuleIndications: Bilateral occipital neuralgia omeprazole (PRILOSEC) Take 1 capsule (20 60 capsule 1 202106/24/[address] mg) by mouth 2 times capsuleIndications: daily Chronic cough ondansetron (ZOFRAN Take 1 tablet (4 mg) 20 tablet 0 202107/08/2022 ODT) 4 MG ODT by mouth every 8 tabIndications: S/P hours as needed for laparoscopic nausea hysterectomy tiotropium (SPIRIVA) Inhale 1 capsule (18 30 capsule 3 02/0906/06/2022 18 MCG inhaled mcg) into the lungs capsuleIndications: daily SOB (shortness of breath) documented as of this encounter Plan of Treatment Upcoming Encounters Date Type Specialty Care Team Description 09/26/2022 Appointment Speech Therapy Obdulio Barrera MD [address] [facility] [address] [place] [address] Anabel Chew, DEMURRAGE AGENT [facility] [address] [facility] [address] [place] [address] 09/27/2022 Therapy Visit Physical Therapy Luisana Watkins, PT [address] [place] [address] 09/29/2022 Virtual Visit Pain & Palliative Marilia Deluna, [facility] [address] [place], [place] [phone] 09/30/2022 Office Visit Family Practice Aydee Burton, TILE ERECTOR CONFECTIONERY MAKER [address] [place], [place] [address] 10/03/2022 Therapy Visit Physical Therapy Una Reardon, PT [address] [place] [phone] 10/10/2022 Hospital Encounter Surgery Lesly Celaya MD [address] [place] [address] 10/10/2022 Office Visit Surgery Lesly Celaya MD [address] [place] [address] Ninoska Flowers, PA-C [address] [place] [address] 10/10/2022 Surgery Surgery Lesly Celaya, EXCISION, MASSES - back, abdomen, [address] [place] [address] 10/11/2022 Virtual Visit Clari Su, [facility] [id number] [place] [address] 10/14/2022 Appointment Speech Therapy Anabel Chew, DEMURRAGE AGENT [facility] [address] [facility] [address] [place] [address] 10/21/2022 Office Visit Pulmonology Obdulio Barrera MD [address] [facility] [address] [place] [address] 10/25/2022 PRE VISIT ENT Charo Burton MD Previsit [address] [place] [phone] 10/25/2022 Office Visit ENT Charo Burton MD [address] [place] [id number] 10/25/2022 Office Visit ENT Provider, Jeannette 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 Project Buyer 10/28/2022 Appointment Speech Therapy Anabel Chew, DEMURRAGE AGENT [address] [place] [address] 11/17/2022 Appointment Speech Therapy Anabel Chew, DEMURRAGE AGENT [address] [place] [address] 12/23/2022 Office Visit Neurology Colby Yeung MD [address] [place] [address] Scheduled Procedures Name Priority Associated Diagnoses Date/Time EXCISION, MASS, TORSO Lipoma of skin and subcuta neous 10/10/2022 7:30 AM [employer] tissue documented as of this encounter Procedures Procedure Name Priority Date/Time Associated Diagnosis Comme nts MR BRAIN W/O & W Routine 05/27/2022 7:24 AM Facial pain Resul ts for this CONTRAST CDT procedure are i n the results section. documented in this encounter Results MR Brain w/o & w Contrast (05/27/2022 7:24 AM CDT) Anatomical Region Laterality Modality Head, SUBRAD MR NEURO, UMP MR NEURO, RAD MR Magnetic Resonance Specimen (Source) Anatomical Location Collection Method / Collectio n Time Received Time / Laterality Volume Impressions 05/27/2022 10:00 AM CDT IMPRESSION: ?? 1. Normal MR appearance of the visualize d trigeminal nerves in their cisternal segments and within Meckel's c ave. 2. No acute infarct, mass, hemorrhage, o r herniation. 3. Mild nonspecific white matter changes most likely due to chronic microvessel ischemic disease. KG RECINOS MD Narrative 05/27/2022 10:00 AM CDT MRI BRAIN WITHOUT AND WITH CONTRAST May 27, 2022 7:24 AM HISTORY: Right-sided facial pain, near m andible and up to right eye, triggered by eyeglasses, talking, brushi ng teeth, evaluating for trigeminal neuralgia. Facial pain. TECHNIQUE: Multiplanar, multisequence MR I of the brain without and with 10 mL Gadavist. COMPARISON: None. FINDINGS: No abnormal signal or enhancem ent along the cisternal course of the trigeminal nerves. Meckel's cave are clear bilaterally without abnormal enhancement or mass. No signifi cant compression along the cisternal course of the trigeminal nerve . There is no evidence of acute infarct, h emorrhage, mass, or herniation. Mild patchy periventricular white matter T2 hyperintensities which are nonspecific, but likely related to chronic microvascular ischemic disease. Ventricu lar size within normal limits without hydrocephalus. There are no gado linium enhancing lesions. The facial structures appear normal. The arteries at the base of the brain and the dural venous sinuses appea r patent. Procedure Note Kg Recinos MD - 05/27/2022 MRI BRAIN WITHOUT AND WITH CONTRAST May 27, 2022 7:24 AM HISTORY: Right-sided facial pain, near m andible and up to right eye, triggered by eyeglasses, talking, brushi ng teeth, evaluating for trigeminal neuralgia. Facial pain. TECHNIQUE: Multiplanar, multisequence MR I of the brain without and with 10 mL Gadavist. COMPARISON: None. FINDINGS: No abnormal signal or enhancem ent along the cisternal course of the trigeminal nerves. Meckel's cave are clear bilaterally without abnormal enhancement or mass. No signifi cant compression along the cisternal course of the trigeminal nerve . There is no evidence of acute infarct, h emorrhage, mass, or herniation. Mild patchy periventricular white matter T2 hyperintensities which are nonspecific, but likely related to chronic microvascular ischemic disease. Ventricu lar size within normal limits without hydrocephalus. There are no gado linium enhancing lesions. The facial structures appear normal. The arteries at the base of the brain and the dural venous sinuses appea r patent. IMPRESSION: 1. Normal MR appearance of the visualize d trigeminal nerves in their cisternal segments and within Meckel's c ave. 2. No acute infarct, mass, hemorrhage, o r herniation. 3. Mild nonspecific white matter changes most likely due to chronic microvessel ischemic disease. KG RECINOS MD Raphael VEGA MRI ORDERABLES documented in this encounter Visit Diagnoses Diagnosis Facial pain Headache Lipoma of skin and subcutaneous tissue Lipoma of other skin and subcutaneous ti ssue documented in this encounter Administered Medications Inactive Administered Medications - up to 3 most recent administrations Medication Order MAR Action Action Date Dose Rate Site gadobutrol (GADAVIST) injection 10 Given 05/27/2022 7:23 AM CDT 10 mLs mL 10 mL, Intravenous, ONCE, On Mon05/27/22 at 0700, For 1 dose, Supplied by, and administered by MRI. documented in this encounter Additional Health Concerns Assessment Noted Time PHQ-9 Depression Total Score: 19 05/27/2022 1:35 PM CD T documented as of this encounter Care Teams Wall Insulation Sprayer Relationship Specialty Start Date End Date Aydee Burton, PCP - General Nurse Practitioner - 05/17/21 TILE ERECTOR CONFECTIONERY MAKER Family [address] [place] [id number] Aydee Burton, Assigned PCP 04/28/21 TILE ERECTOR CONFECTIONERY MAKER [address] [place], [place] [phone] Lousia Hood, Assigned Neuroscience 07/11/21 TILE ERECTOR CONFECTIONERY MAKER Provider [address] [place] [phone] Clari Ruiz Pharmacist Pharmacist 08/06/21 06/07/22 Jocelyn [facility] [address] [place], [place] [phone] [place], Assigned Sleep 08/01/21 Angel Turcios, Provider [address] [place] [address] Lesly Celaya MD Assigned Surgical 09/05/21 [address] [facility] Provider [place], [place] [phone] Tawana Patel MA [facility] 09/30/21 Worker Ramses Mcpherson Assigned OBGYN 11/07/21 MD Onesimo Provider [address] [place] [address] Obdulio Barrera MD Critical Care 01/24/22 MD [address] [facility] [address] [place] [address] Obdulio Barrera, Assigned Pulmonology 02/06/22 MD Provider [address] [place] [address] [address] [place], [place] [address] Lesvia Stanley, GHADA Cardiac Rehabilitation 03/03/22 03/03/23 [facility] Therapist [address] [facility] [address] [place], [place] [phone] Marilia Deluna, PhD Assigned Behavioral 02/20/22 [address] [facility] [place] [address] Niyah Decker, [facility] Pharmacist Pharmacist 03/07/22 [address] [facility] [address] [place], [place] [phone] Clari Poole, Pharmacist Pharmacist 03/07/22 06/15/22 [facility] [address] [facility] [place] [address] Lesvia Stanley EP Cardiac Rehabilitation 03/17/22 03/17/23 [facility] Therapist [address] [place] [address] Clari Ruiz Assigned [place] 04/09/22 05/27/22 [facility] [address] [place], [place] [address] Niyah Warner, [employer] Worker Primary Care - CC 06/27/22 RN Mago Swift, [facility] [employer] Worker [employer] Tech - 08/05/21 Clinical documented as of this encounter
--- OUTSIDE RECORDS SUMMARY | 2022-09-21 04:02 | XMS_ITS | Encounter Summary ---
:1980 Author Organization [place] Address [address] [place] [address] Care Team Providers Name Role Phone Aydee Burton STOCK PULLER COREMAKER HELPER Primary Care Provider Aydee Burton APRN COREMAKER HELPER Unavailable [phone] Louisa Hood STOCK PULLER COREMAKER HELPER Unavailable [phone] Clari Ruiz [facility] Unavailable [phone] Angel Hannah MD Unavailable Lesly Celaya MD Unavailable Tawana Patel MA Unavailable Unavailable Ramses Mcpherson MD Unavailable [phone] Obdulio Barrera MD Unavailable Obdulio Barrera MD Unavailable [phone] Lesvia Stanley Unavailable Marilia Deluna PhD Unavailable Niyah Decker [facility] Unavailable Clari Poole [facility] Unavailable Lesvia Stanley Esther Unavailable Niyah Warner RN Unavailable Delia Avila [facility] Unavailable [phone] Niyah Decker [facility] Unavailable JamisonMago Terri [facility] Unavailable Reason for Visit Reason Comments Medication Therapy Management Med Therapy Management (Urgent: 3-5 Days) - Closed Specialty Diagnoses / Procedures Referred By Contact Refer red To Contact Pharmacist Diagnoses Fatigue, unspecified type Aydee Burton APRN COREMAKER HELPER [address] [place] [address] Referral ID Status Reason Start Date Expiration Date Visits Requ ested Visits Authorized [id number] Closed 05/27/2022 05/27/2023 1 1 Encounter Details Date Type Department Care Team Description 06/07/2022 Virtual Visit [facility] Aydee Burton Ch, APRN COREMAKER HELPER [address] [place] [address] Major depressive disorder, remission sta tus unspecified, unspecified whether recurrent (Primary Dx); Clinic [facility]ia Lopez, [facility] [address] [place], [place] [id number] SHAMEKA (generalized anxiety disorder); [address] [place] [address] PTSD (pos t-traumatic stress disorder); DR[facility]; [place], [place] Severe asth ma, unspecified whether complicated, unspecified whether persistent [id number] Social History Tobacco Use Types Packs/Day Years [...] er 08/05/2021 How often do you attend worship or mormonism services? Never 08/05/2021 Do you belong to any clubs or organizations such as worship N o 08/05/2021 groups, unions, fraternal or [...] at Date Recorded Female 11/09/2021 7:53 PM GAS PLANT SPECIALIST COVID-19 Exposure Response Date Recorded In the last 10 days, have you been in contact with No / Unsu re 05/27/2022 6:09 AM CDT someone who was confirmed or suspected to have Coronavirus/COVID-19? documented as of this encounter Patient Instructions Patient InstructionsMandt, Delia Leal, [facility] - 06/07/2022 1:30 PM CDT Recommendations from today's MTM visit: 1. Talk to Niyah Decker PharmD or your doctor about switching to Spiriva Respimat or another option for your dry mouth. 2. Talk to Niyah about Genesight results and increasing bupropion. 3. Talk to your provider about whether they think your implants may be at all contributing to your health issues. Follow-up: Return in 9 days (on 06/16/2022) for phone visit. (With Niyah Decker PharmD) It was great speaking with you today. I value your experience and would be very thankful for your time in providing feedback in our clinic survey. In the next few days, you may receive an email or textmessage from [facility] [employer] with a link to a survey related to your ???clinical pharmacist. To schedule another MTM appointment, please call the clinic directly or you may call the MTM scheduling line at [phone] or toll-free at . My Clinical Pharmacist's contact information: Please feel free to contact me with any questions or concerns you have. Delia Avila, PharmD, BCACP Medication Therapy Management Provider [email or web address] documented in this encounter Progress Notes Delia Avila RPH - 06/07/2022 1:30 PM CDT Medication Therapy Management (MTM) Encounter ASSESSMENT: Medication Adherence/Access: No issues identified PTSD with Anxiety/Depression: Patient may benefit from following up with Niyah Decker as already scheduled to discuss her question about bupropion dosing, as I am less familiar with Genesight and am hesitant to increase when she is already taking several SPANNER OPERATOR active medications. Facial Neuralgia/Elbow Pain/Hand Stiffness/Neck and Shoulder Pain: Patient overall appears to be avoiding as-needed dosing of meds that are most likely to make her drowsy. She is taking her gabapentin,which definitely appears to be a culprit for her fatigue but may not be substituted easily, as Lyrica is just as likely to cause fatigue and she is already taking duloxetine. Patient may benefit for now from trying to limit gabapentin as much as possible but continuing to take as needed for her facialpain until she sees neurology in 3 weeks. Though it is unlikely, I suggested the patient discuss with her provider whether her implants may atall be contributing to fatigue, mood, and joint pain issues. Asthma: Though mostly stable, patient may benefit from discussion with Niyah or kayley as to whether switching to Spiriva Respimat or other LAMA with lower reported incidence of dry mouth. We did discussthat the risk of Singulair causing mood disturbance is well documented but low- patient to stay off for now. PLAN: 1. Talk to Niyah or your doctor about switching to Spiriva Respimat or another option for your dry mouth. 2. Talk to Niyah about Genesight results and increasing bupropion. 3. Talk to your provider about whether they think your implants may be at all contributing to your health issues. Follow-up: Return in 9 days (on 06/16/2022) for phone visit. (With Niyah Decker PharmD) SUBJECTIVE/OBJECTIVE: Marta Hill is a 42 year old female called for an initial visit. She was referred to me from Aydee Burton CNP. Noted on the call today that the patient has been seeing Niyah Decker PharmD, so willhave her see Niyah next time. Reason for visit: Re-referred for somnolence. Patient reports she is having difficulty staying awakeat work when taking her medications as prescribed. Allergies/ADRs: Reviewed in chart Past Medical History: Reviewed in chart Tobacco: She reports that she has never smoked. She has never used smokeless tobacco. Alcohol: not currently using (none for years) Medication Adherence/Access: Patient uses pill box(es). Per patient, misses medication 0 times per week. PTSD with Anxiety/Depression: Patient is currently taking duloxetine 120mg in the evening, bupropionXL 300mg daily, lamotrigine 300mg daily, and quetiapine 200mg at bed (not taking additional doses ofquetiapine during the day for at least the past couple weeks as she gets too sleepy) and gabapentin as below. Patient has had Genesight testing performed with Niyah and reviewed the results with Aydee Burton CNP. She is wondering based on the results whether her bupropion should be increased to help with her mood and fatigue. PHQ 03/18/2022 05/19/2022 05/27/2022 PHQ-9 Total Score [...] a new neurologist within the system 06/30. Currently is having a flare and her neck and shoulders can't relax. Patient is taking gabapentin 300 or 400mg somewhat interchangeably (has a bottle of each) three to four times daily, as well as acetaminophen as needed. Feeling better in terms of fatigue when she takes less gabapentin, but her neuralgia pain gets worse. Hasn't taken methocarbamol in a week due to falling asleep at work. Takes Zofran 3 to 4 times weekly because she hurts so bad she gets nauseous. Has had Botox injections for facial pain [...] breast implants have been in place since 2004. Asthma: Current medications: ICS/LABA- Symbicort 2 puff(s) twice daily LAMA- Spiriva Handihaler 1 puff(s) once daily Short-Acting Bronchodilator: Albuterol MDI, Ipratropium/Albuterol Nebs. She also has benzonatate that she uses [...] equation which includes age and gender (Yulia et al., NEJ, DOI: 10.1056/HZWMrf4725395) 05/17/2021 >90 >60 mL/min/[1.73_m2] Final Comment: Non GFR Calc Starting 10/30/2018, serum creatinine based estimated GFR (eGFR) will be calculated using the Chronic Kidney Disease Epidemiology Collaboration (CKD-EPI) equation. Calcium Date Value Ref Range Status 05/25/2022 8.4 (L) 8.5 - 10.1 mg/dL Final 05/17/2021 8.8 8.5 - 10.1 mg/dL Final I spent 47 minutes with this patient today. All changes were made via collaborative practice agreement with Aydee Burton CNP. A copy of the visit note was provided to the patient's provider(s). The patient was sent via [employer] a summary of these recommendations. Delia Avila, CaraD, BCACP Medication Therapy Management Provider [email or web address] Telemedicine Visit Details Type of service: Telephone visit Start Time: 1:30 PM End Time: 2:17 PM Originating Location (patient location): Home Distant Location (provider location): [facility] Medication Therapy Recommendations No medication therapy recommendations to display documented in this encounter Plan of Treatment Upcoming Encounters Date Type Specialty Care Team Description 09/26/2022 Appointment Speech Therapy Obdulio Barrera MD [address] [facility] [address] [place], [place] [phone] Anabel Chew, CHEMISTRY INSTRUCTOR [facility] [address] [facility] [address] [place] [address] 09/27/2022 Therapy Visit Physical Therapy Luisana Watkins, PT [address] [place] [address] 09/29/2022 Virtual Visit Pain & Palliative Marilia Deluna, Care PhD [address] [place] [address] 09/30/2022 Office Visit Family Practice Aydee Burton, STOCK PULLER [facility] [address] [place], [place] [address] 10/03/2022 Therapy Visit Physical Therapy Una Reardon, PT [address] [place] [phone] 10/10/2022 Hospital Encounter Surgery Lesly Celaya MD [address] [place], [place] [address] 10/10/2022 Office Visit Surgery Lesly Celaya MD [address] [place], [place] [phone] Ninoska Flowers, FLORES-C [address] [place], [place] [phone] 10/10/2022 Surgery Surgery Lesly Celaya, EXCISION, MASSES - MD back, abdomen, [address] extremity [place], [place] [phone] 10/11/2022 Virtual Visit Pharm Clari Stoll, [facility] [address] [id number] [place], [place] [address] 10/14/2022 Appointment Speech Therapy Anabel Chew, CHEMISTRY INSTRUCTOR [address] [phone] 10/21/2022 Office Visit Pulmonology Obdulio Barrera MD [address] [facility] [address] [place], [place] [address] 10/25/2022 PRE VISIT ENT Charo Burton MD Previsit [address] [place] [phone] 10/25/2022 Office Visit Charo Carter MD [address] [place] [address] [phone] 10/25/2022 Office Visit ENT Provider, 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 Technical Support Agent 10/28/2022 Appointment Speech Therapy Anabel Chew, CHEMISTRY INSTRUCTOR [address] [address] 11/17/2022 Appointment Speech Therapy Anabel Chew, CHEMISTRY INSTRUCTOR [address] [address] 12/23/2022 Office Visit Neurology Colby Yeung MD [address] [facility] [place] [id number] Scheduled Procedures Name Priority Associated Diagnoses Date/Time EXCISION, MASS, TORSO Lipoma of skin and subcuta neous 10/10/2022 7:30 AM GAS PLANT SPECIALIST tissue Scheduled Referrals Name Type Priority Associated Diagnoses Order S chedule Med Therapy Referral Urgent: 3-5 Days Fatigue, unspecified Ord ered: Management Referral type 05/27/20 documented as of this encounter Visit Diagnoses Diagnosis Major depressive disorder, remission sta tus unspecified, unspecified whether recurrent - Primary SHAMEKA (generalized anxiety disorder) Generalized anxiety disorder PTSD (post-traumatic stress disorder) Posttraumatic stress disorder Pain Generalized pain Severe asthma, unspecified whether compl icated, unspecified whether persistent Lipoma of skin and subcutaneous tissue Lipoma of other skin and subcutaneous ti ssue documented in this encounter Additional Health Concerns Assessment Noted Time PHQ-9 Depression Total Score: 19 05/27/2022 1:35 PM CD T documented as of this encounter Care Teams Wire Temperer Relationship Specialty Start Date End Date Aydee Burton, PCP - General Nurse Practitioner - 05/17/21 STOCK PULLER COREMAKER HELPER Family [address] [place] [id number] Aydee Burton, Assigned PCP 04/28/21 STOCK PULLER COREMAKER HELPER [address] [place] [id number] Louisa Hood, Assigned Neuroscience 07/11/21 STOCK PULLER COREMAKER HELPER Provider [address] [place], [place] [phone] Clari Ruiz Pharmacist Pharmacist 08/06/21 06/07/22 Jocelyn [facility] [address] [place], [place] [address] [place], Assigned Sleep 08/01/21 Angel Turcios, Provider [address] [place] [address] Lesly Celaya MD Assigned Surgical 09/05/21 [address] [facility] [place] [address] Tawana Patel MA [facility] 09/30/21 Worker Ramses Mcpherson Assigned OBGYN 11/07/21 MD Onesimo Provider [address] [place], [place] [address] Obdulio Barrera MD Critical Care 01/24/[address] [place] [address] [address] [place], [place] [address] Obdulio Barrera, Assigned Pulmonology 02/06/22 MD Provider [address] [place] [address] [address] [place], [place] [address] Lesvia Stanley, GHADA Cardiac Rehabilitation 03/03/22 03/03/23 [facility] Therapist [address] [place] [id number] Marilia Deluna, PhD Assigned Behavioral 02/20/[address] [facility] Provider [place], [place] [address] Niyah Decker, [facility] Pharmacist Pharmacist 03/07/22 [address] [facility] [address] [place], [place] [phone] Clari Poole, Pharmacist Pharmacist 03/07/22 06/15/22 [facility] [address] [facility] [place] [place] [phone] Lesvia Stanley, GHADA Cardiac Rehabilitation 03/17/22 03/17/23 [facility] Therapist [address] [address] Niyah Warner, Lead Girl Friday Primary Care - CC 06/27/22 RN Delia Avila, Pharmacist Pharmacist 06/07/22 [facility] [address] [place] [address] Niyah Decker, [facility] Assigned MTM 05/28/22 06/10/[address] [place] [address] [address] [place] [address] Mago Swift, [facility] Lead Girl Friday Information Receptionist - 08/05/21 Clinical documented as of this encounter
--- OUTSIDE RECORDS SUMMARY | 2022-09-21 04:02 | XMS_ITS | Encounter Summary ---
:1980 Author Organization [facility] Address [address] [place] [address] Care Team Providers Name Role Phone Aydee Burton [employer] Primary Care Provider Aydee Burton APRN [employer] Unavailable [phone] Louisa Hood [employer] Unavailable [phone] Clari Ruiz [facility] Unavailable Angel Hananh MD Unavailable Lesly Celaya MD Unavailable Tawana Patel MA Unavailable Unavailable Ramses Mcpherson MD Unavailable [phone] Obdulio Barrera MD Unavailable Obdulio Barrera MD Unavailable [phone] Lesvia Stanley Unavailable Marilia Deluna PhD Unavailable Niyah Decker [facility] Unavailable Clari Poole [facility] Unavailable Lesvia Stanley EP Unavailable JosephClari [facility] Unavailable Niyah Warner RN Unavailable JamisonMago [facility] Unavailable Reason for Referral Med Therapy Management (Urgent: 3-5 Days) - Closed Specialty Diagnoses / Procedures Referred By Contact Refer red To Contact Pharmacist Diagnoses Fatigue, unspecified type Aydee Burton APRN [employer] [address] [facility] [place] [address] Referral ID Status Reason Start Date Expiration Date Visits Requ ested Visits Authorized [id number] Closed 05/27/2022 05/27/2023 1 1 Reason for Visit Reason Comments ER F/U Encounter Details Date Type Department Care Team Description 05/27/2022 Office Visit [facility] Aydee Burton, u nspecified type (Primary Dx); [facility] [place] ELADIO Mendez CNP Bilateral occipital neuralgia; [address] [place] [address] Facial pain; [address] Need for pneumococcal vaccination [place] [phone] Social History Tobacco Use Types Packs/Day Years [...] er 08/05/2021 How often do you attend holiness or mosque services? Never 08/05/2021 Do you belong to any clubs or organizations such as holiness N o 08/05/2021 groups, unions, fraternal or [...] place to sleep or slept in a assisted (including now)? Sex Assigned at Date Recorded Female 11/09/2021 7:53 PM [facility] COVID-19 Exposure Response Date Recorded In the last 10 days, have you been in contact with No / Unsu re 06/16/2022 4:05 PM CDT someone who was confirmed or suspected to have Coronavirus/COVID-19? documented as of this encounter Last Filed Vital Signs Vital Sign Reading Time Taken Comments Blood Pressure 112/65 05/27/2022 1:56 PM CDT Pulse 115 05/27/2022 1:56 PM CDT Temperature 36.2 ??C (97.1 ??F) 05/27/2022 1:56 PM CDT Respiratory Rate - - Oxygen Saturation 96% 05/27/2022 1:56 PM CDT Inhaled Oxygen Concentration - - Weight 96.6 kg (213 lb) 05/27/2022 1:56 PM CDT Height 170.2 cm (5' 7) 05/27/2022 1:56 PM CDT Body Mass Index 33.36 05/27/2022 1:56 PM CDT documented in this encounter Patient Instructions AttachmentsThe following attachments cannot be sent through Care Everywhere. Montelukast Oral Tablet 10 mg (Montserratian)documented in this encounter Progress Notes Aydee Burton, ELADIO [employer] - 05/27/2022 1:50 PM CDT Images from the original note were not included. Assessment & Plan Fatigue, unspecified type Has had thorough work-up specific cause has been found. This is felt likely to be multifactorial. Has multiple medications that I feel contribute to this. She has completed GeneSight testing has psych appointment coming up. She is to continue to work with MTM to discuss med changes to minimize sleepiness. Symptoms improved since decreasing gabapentin. Red flag symptoms discussed and if these occur present to the emergency room or call 911. Marta verbalizes understanding of plan of care and is in agreement. - REVIEW OF HEALTH MAINTENANCE PROTOCOL ORDERS - TSH with free T4 reflex - Vitamin D Deficiency - Ferritin - Iron and iron binding capacity - Med Therapy Management Referral Bilateral occipital neuralgia Has upcoming neuro appt. Continue gabapentin but not too much that it causes symptoms of fatigue and other side effects. - gabapentin (NEURONTIN) 300 MG capsule Dispense: 240 capsule; Refill: 0 Near syncope Does not appear to be having had true syncope ED work-up was normal. MRI this morning was normal. Red flag symptoms discussed and if these occur present to the emergency room or call 911. Marta verbalizes understanding of plan of care and is in agreement. Need for pneumococcal vaccination - PNEUMOCOCCAL 20 VALENT CONJUGATE (PREVNAR 20) Return in about 4 weeks (around 06/24/2022) for Wellness exam fasting labs. Aydee Burton APRN [facility] Marta is a 42 year old, presenting for the following health issues: ER F/U HPI ED/UC Followup: Facility: [facility] ED Date of visit: 05/25/2022 Reason for visit: ?Syncope, unspecified syncope type, Excessive sleepiness, Shortness of breath, Chest pain, unspecified type Current Status: Had Brainn MRI this morning. Face pain is off and on. Sent home from work due to crying from the pain. Chest gets tight off and on - muggy weather is worse -- using rescue inhaler, does neb at night. Has been seen for fatigued in past. Has gotten worse in last 2-3 weeks. Also said to reduce dosage of Gabapentin - has decreased to 1 capsule 4x daily instead of 2 caps 4x daily - has seemed to help a little. Feels nauseated when so exhausted. Has seen allergy and ENT. ENT said symptoms are laryngitis. Sees pulm. Allergy to gerbils has hamsters at home. Sleep study Neuro and pain management appts in June. New job at [employer] in [employer] it is set hours. Left work yesterday. Review of Systems Constitutional, HEENT, cardiovascular, pulmonary, GI, , musculoskeletal, neuro, skin, endocrine and psych systems are negative, except as otherwise noted in the HPI. Objective BP 112/65 (BP Location: Right arm, Patient Position: Chair, Cuff Size: Adult Large) Pulse 115 Temp 97.1 ??F (36.2 ??C) (Tympanic) Ht 1.702 m (5' 7) Wt 96.6 kg (213 lb) LMP 12/11/2021 (Exact Date) SpO2 96% No BMI 33.36 kg/m?? Body mass index is 33.36 kg/m??. Physical Exam GENERAL: healthy, alert and no distress RESP: lungs clear to auscultation - no rales, rhonchi or wheezes CV: regular rate and rhythm, normal S1 S2, no S3 or S4, no murmur, click or rub, no peripheral edemaand peripheral pulses strong NEURO: Normal strength and tone, mentation intact and speech normal PSYCH: mentation appears normal, affect normal/bright Results for orders placed or performed during the hospital encounter of 05/27/22 MR Brain w/o & w Contrast Status: None Narrative MRI BRAIN WITHOUT AND WITH CONTRAST May 27, 2022 7:24 AM HISTORY: Right-sided facial pain, near mandible and up to right eye, triggered by eyeglasses, talking, brushing teeth, evaluating for trigeminal neuralgia. Facial pain. TECHNIQUE: Multiplanar, multisequence MRI of the brain without and with 10 mL Gadavist. COMPARISON: None. FINDINGS: No abnormal signal or enhancement along the cisternal course of the trigeminal nerves. Meckel's cave are clear bilaterally without abnormal enhancement or mass. No significant compression along the cisternal course of the trigeminal nerve. There is no evidence of acute infarct, hemorrhage, mass, or herniation. Mild patchy periventricular white matter T2 hyperintensities which are nonspecific, but likely related to chronic microvascular ischemic disease. Ventricular size within normal limits without hydrocephalus. There are no gadolinium enhancing lesions. The facial structures appear normal. The arteries at the base of the brain and the dural venous sinuses appear patent. Impression IMPRESSION: 1. Normal MR appearance of the visualized trigeminal nerves in their cisternal segments and within Meckel's cave. 2. No acute infarct, mass, hemorrhage, or herniation. 3. Mild nonspecific white matter changes most likely due to chronic microvessel ischemic disease. KG MIGUEL MD documented in this encounter Plan of Treatment Upcoming Encounters Date Type Specialty Care Team Description 09/26/2022 Appointment Speech Therapy Obdulio Barrera MD [address] [facility] [address] [place], [place] [address] Anabel Chew, AUTOMOTIVE [employer] ADMINISTRATOR [place] [id number] [facility] [address] [place], [place] [address] 09/27/2022 Therapy Visit Physical Therapy Luisana Watkins, PT [address] [place] [address] 09/29/2022 Virtual Visit Pain & Palliative Marilia Deluna, Care PhD [address] [place] [address] 09/30/2022 Office Visit Family Practice Aydee Burton APRN [employer] [address] [place] [id number] 10/03/2022 Therapy Visit Physical Therapy Una Reardon, PT [address] [place] [address] 10/10/2022 Hospital Encounter Surgery Lesly Celaya MD [address] [place], [place] [phone] 10/10/2022 Office Visit Surgery Lesly Celaya MD [address] [place], [place] [address] Ninoska Flowers PA-C [address] [place], [place] [phone] 10/10/2022 Surgery Surgery Lesly Celaya, EXCISION, MASSES - MD back, abdomen, [address] [place] [address] 10/11/2022 Virtual Visit Clari Su, [facility] [address] [id number] [place] [address] 10/14/2022 Appointment Speech Therapy Anabel Chew, [employer]OT[employer] WARRANTY ADMINISTRATOR [address] [id number] 10/21/2022 Office Visit Pulmonology Obdulio Barrera MD [address] [place] [address] 10/25/2022 PRE VISIT ENT Charo Burton MD Previsit [address] [place] [address] 10/25/2022 Office Visit ENT Charo Burton MD [address] [place] [phone] 10/25/2022 Office Visit ENT Provider, 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 Blade Aligner 10/28/2022 Appointment Speech Therapy Anabel Chew, [employer] ADMINISTRATOR [address] [phone] 11/17/2022 Appointment Speech Therapy Anabel Chew, [employer]OTIVE WARRANTY ADMINISTRATOR [address] [id number] 12/23/2022 Office Visit Neurology Colby Yeung, MD [address] [place], [place] [address] Scheduled Procedures Name Priority Associated Diagnoses Date/Time EXCISION, MASS, TORSO Lipoma of skin and subcuta neous 10/10/2022 7:30 AM [employer] tissue Scheduled Referrals Name Type Priority Associated Diagnoses Order S chedule Med Therapy Referral Urgent: 3-5 Days Fatigue, unspecified Ord ered: Management Referral type 05/27/20 22 documented as of this encounter Results CRP, inflammation (05/25/2022 11:23 AM CDT) Analysis Performed At Patho logist Time Signature CRP Inflammation <2.9 0.0 - 8.0 05/27/2022 [facility] Y mg/L 2:55 PM CDT Specimen Anatomical Collection Method / Collection Time Recei edil Time (Source) Location / Volume Laterality Blood STRUCTURE OF RIGHT Venipuncture / 05/25/2022 11:23 UPPER LIMB / Unknown AM CDT 11:29 AM CDT Unknown Aydee Burton APRN, CNP LAB - BLOOD ORDERABLES Performing Organization Address City/State/ZIP [place] [address] [facility] [address] Lab (1st floor, no room number) Iron and iron binding capacity (05/25/2022 11:23 AM CDT) P athologist Signature Iron 71 35 - 180 05/27/2022 [facility] ug/dL 2:56 PM CDT Iron Binding 373 240 - 430 05/27/2022 [facility] Capacity ug/dL 2:56 PM CDT Iron Sat Index 19 15 - 46 % 05/27/2022 [facility] 2:56 PM CDT Specimen Anatomical Collection Method / Collection Time Recei edil Time (Source) Location / Volume Laterality Blood STRUCTURE OF RIGHT Venipuncture / 05/25/2022 11:23 UPPER LIMB / Unknown AM CDT 11:29 AM CDT Unknown Aydee Burton APRN [employer] LAB - BLOOD ORDERABLES Performing Organization Address City/State/ZIP [place] [address] [facility] [address] Lab (1st floor, no room number) Ferritin (05/25/2022 11:23 AM CDT) athologist Signature Ferritin 15 12 - 150 05/27/2022 [facility] ng/mL 2:59 PM CDT Specimen Anatomical Collection Method / Collection Time Recei edil Time (Source) Location / Volume Laterality Blood STRUCTURE OF RIGHT Venipuncture / 05/25/2022 11:23 UPPER LIMB / Unknown AM CDT 11:29 AM CDT Unknown Aydee Burton APRN, CNP LAB - BLOOD ORDERABLES Performing Organization Address City/State/[place] [address] [facility] [address] Lab (1st floor, no room number) Vitamin D Deficiency (05/25/2022 11:23 AM CDT) athologist Signature Vitamin D, 43 20 - 75 05/30/2022 [facility] Total ug/L 11:14 AM CDT CORE/PROT/ENDO (25-Hydroxy) Specimen Anatomical Collection Method / Collection Time Recei edil Time (Source) Location / Volume Laterality Blood STRUCTURE OF RIGHT Venipuncture / 05/25/2022 11:23 UPPER LIMB / Unknown AM CDT 11:29 AM CDT Unknown Narrative [facility] CORE/PROT/ENDO - 05/30/2022 11:14 AM CDT Season, race, dietary intake, and treatment affect the concentration of 15-hhahcwh-Bsaupxx D. Values may decrease during winter months and in crease during summer months. Values 20- 29 ug/L may indicate Vitamin D insufficiency and values <20 ug/L may indicate Vitamin D deficiency. Vitamin D determination is routinely per formed by an immunoassay specific for 25 hydroxyvitamin D3. ??If an individual is on vitamin D2(ergocalciferol) supplementation, please specify 25 [place] vitamin D2 and D3 level determination by LCMSMS test VITD23. Aydee Burton APRN, CNP LAB - BLOOD ORDERABLES Performing Organization Address City/State/ZIP Code Phon e Number [facility] CORE/PROT/ENDO [facility] [place] [address] Core/Prot/Endo [address] [facility] [address] Building, Room 3-580 TSH with free T4 reflex (05/25/2022 11:23 AM CDT) P athologist Signature TSH 1.41 0.40 - 4.00 05/27/2022 [facility] mU/L 2:41 PM CDT Specimen Anatomical Collection Method / Collection Time Recei edli Time (Source) Location / Volume Laterality Blood STRUCTURE OF RIGHT Venipuncture / 05/25/2022 11:23 UPPER LIMB / Unknown AM CDT 11:29 AM CDT Unknown Aydee Burton [employer] LAB - BLOOD ORDERABLES Performing Organization Address City/[facility]/ZIP Code [place] [address] [facility] [address] Lab (1st floor, no room number) documented in this encounter Visit Diagnoses Diagnosis Fatigue, unspecified type - Primary Bilateral occipital neuralgia Other syndromes affecting cervical regio n Facial pain Headache Need for pneumococcal vaccination Need for prophylactic vaccination agains t streptococcus pneumoniae (pneumococcus) Lipoma of skin and subcutaneous tissue Lipoma of other skin and subcutaneous ti ssue documented in this encounter Additional Health Concerns Assessment Noted Time PHQ-9 Depression Total Score: 19 05/27/2022 1:35 PM CD T documented as of this encounter Care Teams Painter Ordnance Relationship Specialty Start Date End Date Aydee Burton, PCP - General Nurse Practitioner - 05/17/21 [employer] Family [address] [place], [place] [phone] Aydee Burton, Assigned PCP 04/28/21 [employer] [address] [place], [place] [phone] Louisa Hood, Assigned Neuroscience 07/11/21 [employer] Provider [address] [place], [place] [phone] Clari Ruiz Pharmacist Pharmacist 08/06/21 06/07/22 Jocelyn [facility] [address] [place] [address] [place], Assigned Sleep 08/01/21 Angel Turcios, Provider [address] [place] [address] Lesly Celaya MD Assigned Surgical 09/05/21 [address] [place] [address] Tawana Patel MA [facility] 09/30/21 Worker Ramses Mcpherson Assigned OBGYN 11/07/21 MD Onesimo Provider [address] [place] [address] Obdulio Barrera MD Critical Care 01/24/22 [address] [facility] [address] [place] [address] Obdulio Barrera, Assigned Pulmonology 02/06/[address] [place] [address] [address] [place], [place] [phone] Lesvia Stanley, GHADA Cardiac Rehabilitation 03/03/22 03/03/23 [facility] HOSP Therapist [address] [place], [place] [address] Marilia Deluna, PhD Assigned Behavioral 02/20/22 [id number] [facility] Provider [place], [place] [phone] Niyah Decker, [facility] Pharmacist Pharmacist 03/07/22 [address] [facility] [address] [place], [place] [phone] Clari Poole, Pharmacist Pharmacist 03/07/22 06/15/22 [facility] [address] [facility] [address] [place], [place] [phone] Lesvia Stanley EP Cardiac Rehabilitation 03/17/22 03/17/23 [facility]OS[facility] Therapist [address] [place], [place] [phone] Clari Ruiz Assigned MTM 04/09/22 05/27/22 Jocelyn [facility] Pharmacist [address] [place] [address] Niyah Warner, Lead Clinical Manager Home Care Primary Care - CC 06/27/22 RN Mago Swift, [facility] Lead Clinical Manager Home Care Mold Dresser - 08/05/21 Clinical documented as of this encounter
--- OUTSIDE RECORDS SUMMARY | 2022-09-21 04:02 | XMS_ITS | Encounter Summary ---
:1980 Author Organization [facility] Address [address] [place] [address] Care Team Providers Name Role Phone Aydee Burton DIGITAL TECHNICIAN RESIDENCE HALL DIRECTOR Primary Care Provider Ayede Burton APRN RESIDENCE HALL DIRECTOR Unavailable [phone] Louisa Hood DIGITAL TECHNICIAN RESIDENCE HALL DIRECTOR Unavailable [phone] Clari Ruiz [facility] Unavailable [phone] Angel Hannah MD Unavailable Lesly Celaya MD Unavailable Tawana Patel MA Unavailable Unavailable Ramses Mcpherson MD Unavailable [phone] Obdulio Barrera MD Unavailable [phone] Obdulio Barrera MD Unavailable [phone] Lesvia Stanley Unavailable Marilia Deluna PhD Unavailable Niyah Decker [facility] Unavailable Clari Poole [facility] Unavailable Lesvia Stanleyn EP Unavailable Niyah Warner RN Unavailable Niyah Decker [facility] Unavailable JamisonMago [facility] Unavailable Reason for Visit Reason Onset Date Comments Refill Request 06/06/2022 [facility] Inhaler Encounter Details Date Type Department Care Team Description 06/06/[address] [facility] Obdulio Barrera Refill R equest ([facility] Jaquan fidencio Bailey MD Inhaler) [address] [facility] [address] [place] [address] [place] [address] [phone] (Wo rk) Social History Tobacco Use Types [...] How often do you attend pentecostalism or tenriism services? Never 08/05/2021 Do you belong to [...] at Date Recorded Female 11/09/2021 7:53 PM DISTRIBUTION TECHNICIAN COVID-19 Exposure Response Date Recorded In the last 10 days, have you been in contact with No / Unsu re 05/27/2022 6:09 AM CDT someone who was confirmed or suspected to have Coronavirus/COVID-19? documented as of this encounter Miscellaneous Notes Telephone Encounter - Crista Holden - 06/06/2022 9:02 AM CDT Last Written Prescription Date: 03/11/2022 Last Fill Quantity: 30 Capsule, # refills: 4 Last office visit: 03/25/2022 with prescribing provider: Dr. Barrera Future Office Visit: Next 5 appointments (look out 90 days) Jun 07, 2022 1:30 PM MTM New with Delia Avila RPH [facility] ([facility] ) [address] [place] [phone] Jun 23, 2022 11:30 AM Return Visit with Madalyn Ponce MD [facility] [place] ([facility] ) [address] [facility] 300 [facility] [address] Jun 24, 2022 9:50 AM (Arrive by 9:30 AM) Annual Wellness Visit with Aydee Burton APRN CNP [facility] ([facility] ) [address] [place] [phone] Jul 13, 2022 3:30 PM Return Visit with Obdulio Barrera MD [facility] [place] ([facility] ) [address] [phone] ??? benzonatate (TESSALON) 200 MG capsule 30 capsule 4 Sig: Take 1 capsule (200 mg) by mouth 3 times daily as needed for cough There is no refill protocol information for this order Telephone Encounter - Crista Holden - 06/06/2022 8:50 AM CDT Last Written Prescription Date: 02/09/2022 Last Fill Quantity: 30 capsule, # refills: 3 Last office visit: 03/25/2022 with prescribing provider: Dr. Barrera Future Office Visit: Next 5 appointments (look out 90 days) Jun 07, 2022 1:30 PM MTM New with Delia Avila RPH [facility] ([facility] ) [address] [facility] [phone] Jun 23, 2022 11:30 AM Return Visit with Madalyn Ponce MD [facility] [place] ([facility] ) [address] [place] [address] Jun 24, 2022 9:50 AM (Arrive by 9:30 AM) Annual Wellness Visit with Aydee Burton APRN CNP [facility] ([facility] ) [address] [place] [phone] Jul 13, 2022 3:30 PM Return Visit with Obdulio Barrera MD [facility] [place] ([facility] ) [address] [place] [phone] Requested Prescriptions Pending Prescriptions Disp Refills ??? tiotropium (SPIRIVA) 18 MCG inhaled capsule 30 capsule 3 Sig: Inhale 1 capsule (18 mcg) into the lungs daily There is no refill protocol information for this order documented in this encounter Plan of Treatment Upcoming Encounters Date Type Specialty Care Team Description 09/26/2022 Appointment Speech Therapy Obdulio Barrera MD 420 [facility] 276 [place] [address] Anabel Chew, MC [address] [place] 793136 [facility] 396 [place] [address] 09/27/2022 Therapy Visit Physical Therapy Luisana Watkins, PT [address] [place] [address] 09/29/2022 Virtual Visit Pain & Palliative Marilia Deluna, Care PhD [address] [place] [address] 09/30/2022 Office Visit Family Practice Aydee Burton, DIGITAL TECHNICIAN [facility] [address] [place] [address] 10/03/2022 Therapy Visit Physical Therapy Una Reardon, PT [address] [place] [phone] 10/10/2022 Hospital Encounter Surgery Lesly Celaya MD [address] [place], [place] [address] 10/10/2022 Office Visit Surgery Lesly Celaya MD [address] [place] [address] Ninoska Flowers PA-C [address] [place] [address] 10/10/2022 Surgery Surgery Lesly Celaya, EXCISION, MASSES - MD back, abdomen, [address] right lower BL extremity [place], [place] [phone] 10/11/2022 Virtual Visit Clari Su, [facility] [address] [place] [address] 10/14/2022 Appointment Speech Therapy Anabel Chew, MC [address] [address] 10/21/2022 Office Visit Pulmonology Obdulio Barrera MD [address] [phone] 10/25/2022 PRE VISIT ENT Charo Burton MD Previsit [address] [place] [address] [phone] 10/25/2022 Office Visit ENT Charo Burton MD 909 [place], [place] [address] 10/25/2022 Office Visit ENT Provider, 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 Electoral Officer 10/28/2022 Appointment Speech Therapy Anabel Chew, MC [address] 852935 11/17/2022 Appointment Speech Therapy Anabel Chew, MC [address] [phone] 12/23/2022 Office Visit Neurology Colby Yeung MD [address] [place] [phone] Scheduled Procedures Name Priority Associated Diagnoses Date/Time EXCISION, MASS, TORSO Lipoma of skin and subcuta neous 10/10/2022 7:30 AM DISTRIBUTION TECHNICIAN tissue documented as of this encounter Visit Diagnoses Diagnosis SOB (shortness of breath) Shortness of breath Moderate persistent asthma without compl ication Unspecified asthma Lipoma of skin and subcutaneous tissue Lipoma of other skin and subcutaneous ti ssue documented in this encounter Additional Health Concerns Assessment Noted Time PHQ-9 Depression Total Score: 19 05/27/2022 1:35 PM CD T documented as of this encounter Care Teams Buck Swamper Relationship Specialty Start Date End Date Aydee Burton, PCP - General Nurse Practitioner - 05/17/21 DIGITAL TECHNICIAN RESIDENCE HALL DIRECTOR Family [address] [place], [place] [phone] Aydee Burton, Assigned PCP 04/28/21 DIGITAL TECHNICIAN RESIDENCE HALL DIRECTOR [address] [place] [address] Louisa Hood, Assigned Neuroscience 07/11/21 DIGITAL TECHNICIAN RESIDENCE HALL DIRECTOR Provider [address] [place], [place] [phone] Clari Ruiz Pharmacist Pharmacist 08/06/21 06/07/22 [facility] [address] [place], [place] [phone] [place], Assigned Sleep 08/01/21 Angel Turcios, Provider [address] [place], [place] [address] Lesly Celaya MD Assigned Surgical 09/05/21 [address] Provider [place], [place] [phone] Tawana Patel MA [facility] Health 09/30/21 Worker Ramses Mcpherson Assigned OBGYN 11/07/21 MD Onesimo Provider [address] [place], [place] [phone] Obdulio Barrera MD Critical Care 01/24/22 420 [facility] 276 [place], [place] [phone] Obdulio Barrera, Assigned Pulmonology 02/06/22 MD Provider 420 [facility] 276 [place], [place] [address] Lesvia Stanley, GHADA Cardiac Rehabilitation 03/03/22 03/03/23 [facility] Therapist [address] [place] [address] Marilia Deluna, PhD Assigned Behavioral 02/20/22 [address] [facility] [place] [place] [address] Niyah Decker, [facility] Pharmacist Pharmacist 03/07/22 420 [facility] 812 [place], [place] [address] Clari Poole, Pharmacist Pharmacist 03/07/22 06/15/22 [facility] [address] [facility] [place] [address] Lesvia Stanley, GHADA Cardiac Rehabilitation 03/17/22 03/17/23 [facility] Therapist [address] [place] [address] Niyah Warner, Lead Cop Breaker Primary Care - CC 06/27/22 RN Niyah Decker, [facility] Assigned MTM 05/28/22 06/10/22 420 [facility] 812 [place] [address] Mago Swift, [facility] Lead Cop Breaker Pretzel Packer - 08/05/21 Clinical documented as of this encounter
--- OUTSIDE RECORDS SUMMARY | 2022-09-21 04:02 | XMS_ITS | Encounter Summary ---
:1980 Author Organization [facility] Address [address] [place] [address] Care Team Providers Name Role Phone Aydee Burton AIR BRAKE OPERATOR POWDER ROOM ATTENDANT Primary Care Provider Aydee Burton APRN POWDER ROOM ATTENDANT Unavailable [phone] Louisa Hood AIR BRAKE OPERATOR POWDER ROOM ATTENDANT Unavailable [phone] Clari Ruiz [facility] Unavailable [phone] Angel Hannah MD Unavailable Lesly Celaya MD Unavailable Tawana Patel MA Unavailable Unavailable Ramses Mcpherson MD Unavailable [phone] Obdulio Barrera MD Unavailable [phone] Obdulio Barrera MD Unavailable [phone] Lesvia Stanley Unavailable Marilia Deluna PhD Unavailable Niyah Decker [facility] Unavailable Clari Poole [facility] Unavailable KandiLesvia moonn EP Unavailable Niyah Warner RN Unavailable Niyah Decker [facility] Unavailable Mago Swift [facility] Unavailable Encounter Details Date Type Department Care Team Description 06/06/2022 Virtual Visit [facility] Marilia Deluna, NO SHOW (Primary Dx) Pain Management PhD [address] [address] [address] [place], [place] [address] [address] [place] [address] Social History Tobacco Use Types [...] How often do you attend rastafarian or restorationism services? Never 08/05/2021 Do you [...] at Date Recorded Female 11/09/2021 7:53 PM TRAFFIC SIGNAL MECHANIC COVID-19 Exposure Response Date Recorded In the last 10 days, have you been in contact with No / Unsu re 05/27/2022 6:09 AM CDT someone who was confirmed or suspected to have Coronavirus/COVID-19? documented as of this encounter Progress Notes Marilia Deluna - 06/06/2022 3:00 PM CDT Attempted to reach patient x3 via text and x3 via telephone. Finally reached patient at 3:23 PM whenshe answered the telephone after 4th attempt. Patient called central scheduling to cancel appointment at 3:02 PM, when we connected requested to have telephone visit instead while driving home. Discussed we cannot have an appointment while she is driving, and that it appears she made an appointment for 06/08 at 3:00 while attempts were being made to connect with her. Marilia Deluna PsyD LP Licensed Psychologist Outpatient Clinic Therapist [facility] documented in this encounter Plan of Treatment Upcoming Encounters Date Type Specialty Care Team Description 09/26/2022 Appointment Speech Therapy Obdulio Barrera MD 420 [facility] 276 [place] [address] Anabel Chew, PACU NURSE [facility] 516 [facility] 396 [place], [place] [address] 09/27/2022 Therapy Visit Physical Therapy Luisana Watkins, PT [address] [place] [address] 09/29/2022 Virtual Visit Pain & Palliative Marilia Deluna, [facility] PhD [address] [place], [place] [address] 09/30/2022 Office Visit Family Practice Aydee Burton, ELADIO POWDER ROOM ATTENDANT [address] [place] [address]78652 10/03/2022 Therapy Visit Physical Therapy Una Reardon, PT [address] [place] [address] 10/10/2022 Hospital Encounter Surgery Lesly Celaya MD [address] [place], [place] [phone] 10/10/2022 Office Visit Surgery Lesly Celaya MD [address] [place], [place] [phone] Ninoska Flowers PA-C [address] [place] [address] 10/10/2022 Surgery Surgery Lesly Celaya, EXCISION, MASSES - MD back, abdomen, [address] extremity [place], [place] [phone] 10/11/2022 Virtual Visit Pharm Clari Stoll, [place] [id number] [address] [address] 10/14/2022 Appointment Speech Therapy Anabel Chew, PACU NURSE [facility] 516 [facility] 396 [place] [address] 10/21/2022 Office Visit Pulmonology Obdulio Barrera MD 420 [facility] 276 [place] [address] 10/25/2022 PRE VISIT Charo Carter MD Previsit [address]09 [place] [address] 10/25/2022 Office Visit Charo Carter MD [address] [place] [address] 10/25/2022 Office Visit ENT Provider, Jeannette 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 Geriatric Physical Therapist 10/28/2022 Appointment Speech Therapy Anabel Chew, CELINE [address] [address] 11/17/2022 Appointment Speech Therapy Anabel Chew PACU NURSE [address] [address] 12/23/2022 Office Visit Neurology Colby Yeung MD [address] [place] [place] [address] Scheduled Procedures Name Priority Associated Diagnoses Date/Time EXCISION, MASS, TORSO Lipoma of skin and subcuta neous 10/10/2022 7:30 AM TRAFFIC SIGNAL MECHANIC tissue documented as of this encounter Visit Diagnoses Diagnosis NO SHOW - Primary Lipoma of skin and subcutaneous tissue Lipoma of other skin and subcutaneous ti ssue documented in this encounter Additional Health Concerns Assessment Noted Time PHQ-9 Depression Total Score: 19 05/27/2022 1:35 PM CD T documented as of this encounter Care Teams Messenger Floorperson Relationship Specialty Start Date End Date Aydee Burton, PCP - General Nurse Practitioner - 05/17/21 AIR BRAKE OPERATOR POWDER ROOM ATTENDANT Family [address] [place] [address] [phone] Aydee Burton, Assigned PCP 04/28/21 AIR BRAKE OPERATOR POWDER ROOM ATTENDANT [address] [place] [address] [phone] Louisa Hood, Assigned Neuroscience 07/11/21 AIR BRAKE OPERATOR POWDER ROOM ATTENDANT Provider [address] [place] [id number] Joseph, Clari Pharmacist Pharmacist 08/06/21 06/07/22 Jocelyn [facility] [address] [place], [place] [address] [place], Assigned Sleep 08/01/21 Angel Turcios, Provider [address] [place], [place] [address] Lesly Celaya MD Assigned Surgical 09/05/21 [address] [facility] Provider [place], [place] [address] Tawana Patel MA [facility] 09/30/21 Worker Ramses Mcpherson Assigned OBGYN 11/07/21 MD Onesimo Provider [address] [place], [place] [address] Obdulio Barrera MD Critical Care 01/24/[address] [place] [address] 276 [place], [place] [address] Obdulio Barrera, Assigned Pulmonology 02/06/22 MD Provider [address] [place] [address] 276 [place], [place] [phone] Lesvia Stanley EP Cardiac Rehabilitation 03/03/22 03/03/23 [facility] Therapist [address] [place] [address] Marilia Deluna, PhD Assigned Behavioral 02/20/22 [address] [facility] Health Provider [place], [place] [phone] Niyah Decker, [facility] Pharmacist Pharmacist 03/07/22 420 [facility] 812 [place], [place] [address] Clari Poole, Pharmacist Pharmacist 03/07/22 06/15/22 [facility] [address] [place] [address] Lesvia Stanley EP Cardiac Rehabilitation 03/17/22 03/17/23 [facility] Therapist [address] [place] [address] Niyah Warner, Lead Manager Marketing Primary Care - CC 06/27/22 RN Niyah Decker, [facility] Assigned MTM 05/28/22 06/10/22 420 [facility] 812 Pharmacist [place], [place] [address] Mago Swift, [facility] Lead Manager Marketing Landscape Contractor - 08/05/21 Clinical documented as of this encounter
--- OUTSIDE RECORDS SUMMARY | 2022-09-21 04:02 | XMS_ITS | Encounter Summary ---
:1980 Author Organization [facility] Address [address] [place] [address] Care Team Providers Name Role Phone Aydee Burton FORENSIC SPECIALIST KEY ACCOUNT COORDINATOR Primary Care Provider Aydee Burton APRN KEY ACCOUNT COORDINATOR Unavailable [phone] Louisa Hood FORENSIC SPECIALIST KEY ACCOUNT COORDINATOR Unavailable [phone] Clari Ruiz [facility] Unavailable Angel Hannah MD Unavailable Lesly Celaya MD Unavailable Tawana Patel MA Unavailable Unavailable Ramses Mcpherson MD Unavailable [phone] Obdulio Barrera MD Unavailable [phone] Obdulio Barrera MD Unavailable [phone] Lesvia Stanley Unavailable Marilia Deluna PhD Unavailable Niyah Decker [facility] Unavailable Clari Poole [facility] Unavailable Lesvia Stanleyn EP Unavailable Clari Ruiz [facility] Unavailable [phone] Niyah Warner RN Unavailable Mago Swift [facility] Unavailable Reason for Visit Reason Comments Medication Therapy Management Encounter Details Date Type Department Care Team Description 05/24/2022 Virtual Visit [facility] Niyah Decker, Pain (Primary Dx); Clinic [facility] Major depressive disorder, remission sta tus unspecified, unspecified whether recurrent; [address] [place] [address] [place] (ge neralized anxiety disorder); [facility] 812 PTSD (post-traumatic stress disorder); [address] [place], [place] Severe asthma, unspecified w hether complicated, unspecified whether persistent; [place] [address] Non-seasonal allergic rhinitis due to [place]len [address] Social History Tobacco Use Types Packs/Day Years [...] er 08/05/2021 How often do you attend orthodox or alevism services? Never 08/05/2021 Do you belong to any clubs or organizations such as orthodox N o 08/05/2021 groups, unions, fraternal or [...] at Date Recorded Female 11/09/2021 7:53 PM LEATHER FINISHER COVID-19 Exposure Response Date Recorded In the last 10 days, have you been in contact with No / Unsu re 05/19/2022 8:48 AM CDT someone who was confirmed or suspected to have Coronavirus/COVID-19? documented as of this encounter Patient Instructions Patient InstructionsNiyah Decker RPH - 05/24/2022 12:00 PM CDT Recommendations from today's MTM visit: 1. Share Genesight results with psychiatrist 2. Follow-up with MRI as scheduled Follow-up: Return in about 3 months (around 08/24/2022) for Medication Therapy Management. It was great speaking with you today. I value your experience and would be very thankful for your time in providing feedback in our clinic survey. In the next few days, you may receive an email or textmessage from [employer] with a link to a survey related to your ???clinical pharmacist. To schedule another MTM appointment, please call the clinic directly or you may call the MTM scheduling line at [phone] or toll-free at . My Clinical Pharmacist's contact information: Please feel free to contact me with any questions or concerns you have. Niyah Decker , Pharm D [phone] (phone) Medication Therapy Management Pharmacist documented in this encounter Progress Notes Niyah Decker RPH - 05/24/2022 12:00 PM CDT Medication Therapy Management (MTM) Encounter ASSESSMENT: Medication Adherence/Access: No issues identified Facial pain: follow-up with MRI as scheduled Depression/Anxiety/PTSD: Stable, will share Genesight results with psychiatrist. Asthma/Allergies: Improved. Continue with current regimen. PLAN: 1. Share Genesight results with psychiatrist 2. Follow-up with MRI as scheduled Follow-up: Return in about 3 months (around 08/24/2022) for Medication Therapy Management. SUBJECTIVE/OBJECTIVE: Marta Hill is a 42 year old female called for a follow-up visit. Today's visit is a follow-up MTM visit from 03/07/22. Reason for visit: medication review Allergies/ADRs: Reviewed in chart Tobacco: She reports that she has never smoked. She has never used smokeless tobacco. Alcohol: not currently using Medication Adherence/Access: no issues reported, uses pill box Facial pain: Taking gabapentin 600 mg four times daily and methocarbamol as needed (usually QAM and QPM and during the day when needed). Regimen helping a little. Still has flares but not constant. She does fall asleep frequently throughout the day; describes like black outs which has changed from past episodes. Scheduled for MRI this week and pain management visit scheduled. Depression/Anxiety/PTSD: Current medications include: bupropion XL 300 mg daily, duloxetine 120 mg daily, lamotrigine 300 mg qPM, quetiapine 200 mg nightly and 100 mg as needed. Therapies tried and failed: Prozac, sertraline, escitalopram, Abilify (per patient) Sees psychiatrist: Carly Monroy (provider is leaving this clinic on 03/11) [phone] Genesight Testing completed 04/02/22 by Lory Nunez - reviewed results with Lory. PHQ 03/18/2022 03/18/2022 05/19/2022 PHQ-9 Total Score 16 16 20 Q9: Thoughts of better off /self-harm past 2 weeks Not at all Not at all Not at all F/U: Thoughts of suicide or self-harm - - - F/U: Self harm-plan - - - F/U: Self-harm action - - - F/U: Safety concerns - - - Asthma/Allergies: Current asthma medications: albuterol inhaler as needed (4+ times daily), albuterol neb solution as needed (doesn't use), Duoneb as needed (at bedtime), Symbicort 2 puffs twice daily,Spiriva 1 puff daily, Flonase 2 sprays daily and montelukast 10 mg daily. Will use benzonatate as needed. Cough seems to be getting better. Symptoms flared over the weekend when she was outside [place]. Follows with pulmonology (Dr. Barrera). Last visit 01/31/22. Air-trapping seen on CT. Normal PFTs. In part, this seems related to asthma. At this time, I would continue ICS-LABA, given that she just recently started, and prn albuterol. May consider step-up therapy if still not responding in the coming weeks. ACT Total Scores 03/07/2022 ACT TOTAL SCORE (Goal Greater than or Equal to 20) 6 In the past 12 months, how many times did you visit the emergency room for your asthma without beingadmitted to the hospital? 2 In the past 12 months, how many times were you hospitalized overnight because of your asthma? 0 Today's Vitals: LMP 12/11/2021 (Exact Date) I spent 20 minutes with this patient today. All changes were made via collaborative practice agreement with Aydee Burton APRN CNP. A copy of the visit note was provided to the patient's provider(s). The patient was sent via [employer] a summary of these recommendations. Niyah Decker , Pharm D [phone] (phone) Medication Therapy Management Pharmacist Telemedicine Visit Details Type of service: Telephone visit Start Time: 1200pm End Time: 1220pm Originating Location (patient location): Home Distant Location (provider location): [facility] Medication Therapy Recommendations No medication therapy recommendations to display documented in this encounter Plan of Treatment Upcoming Encounters Date Type Specialty Care Team Description 09/26/2022 Appointment Speech Therapy Obdulio Barrera MD [address] [facility] [address] [place] [address] Anabel Chew, UNIT MANAGER [employer]VENIENCE [employer]ORES [address] [place] [address] 09/27/2022 Therapy Visit Physical Therapy Luisana Watkins, PT [address] [place] [address] 09/29/2022 Virtual Visit Pain & Palliative Marilia Deluna, [facility] PhD [address] [place] [address] 09/30/2022 Office Visit Family Practice Aydee Burton, FORENSIC SPECIALIST KEY ACCOUNT COORDINATOR [address] [place], [place] [address] 10/03/2022 Therapy Visit Physical Therapy Una Reardon, PT [address] [place] [phone] 10/10/2022 Hospital Encounter Surgery Lesly Celaya MD [address] [place], [place] [address] 10/10/2022 Office Visit Surgery Lesly Celaya MD [address] [place] [address] Ninoska Flowers, PA-C [address] [facility] [address] [place] [address] 10/10/2022 Surgery Surgery Lesly Celaya, EXCISION, MASSES - back, abdomen, [address] right lower [facility] [place] [address] 10/11/2022 Virtual Visit Clari Su, [facility] [address] [facility] [address] [place] [address] 10/14/2022 Appointment Speech Therapy Anabel Chew, UNIT MANAGER CONVENIENCE STORES [facility] [address] [facility] [address] [place] [address] 10/21/2022 Office Visit Pulmonology Obdulio Barrera MD [address] [facility] [address] [place] [address] 10/25/2022 PRE VISIT ENT Charo Burton MD Previsit [address] [place] [address] 10/25/2022 Office Visit ENT Charo Burton MD [address] [place] [address] 10/25/2022 Office Visit ENT Provider, Jeannette 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 Non Destructive Evaluation Specialist 10/28/2022 Appointment Speech Therapy Anabel Chew, UNIT MANAGER [employer] [address] [address] 11/17/2022 Appointment Speech Therapy Anabel Chew, UNIT MANAGER [employer] [address] [address] 12/23/2022 Office Visit Neurology Colby Yeung MD [address] [place] [phone] Scheduled Procedures Name Priority Associated Diagnoses Date/Time EXCISION, MASS, TORSO Lipoma of skin and subcuta neous 10/10/2022 7:30 AM LEATHER FINISHER tissue documented as of this encounter Visit Diagnoses Diagnosis Pain - Primary Generalized pain Major depressive disorder, remission sta tus unspecified, unspecified whether recurrent SHAMEKA (generalized anxiety disorder) Generalized anxiety disorder PTSD (post-traumatic stress disorder) Posttraumatic stress disorder Severe asthma, unspecified whether compl icated, unspecified whether persistent Non-seasonal allergic rhinitis due to po llen Lipoma of skin and subcutaneous tissue Lipoma of other skin and subcutaneous ti ssue documented in this encounter Additional Health Concerns Assessment Noted Time PHQ-9 Depression Total Score: 20 05/19/2022 9:02 AM CD T documented as of this encounter Care Teams Stroboroma Operator Relationship Specialty Start Date End Date Aydee Burton, PCP - General Nurse Practitioner - 05/17/21 FORENSIC SPECIALIST KEY ACCOUNT COORDINATOR Family [address] [place], [place] [id number] Aydee Burton, Assigned PCP 04/28/21 FORENSIC SPECIALIST KEY ACCOUNT COORDINATOR [address] [place], [place] [address] Louisa Hood, Assigned Neuroscience 07/11/21 FORENSIC SPECIALIST KEY ACCOUNT COORDINATOR Provider [address] [place], [place] [address] Clari Ruiz Pharmacist Pharmacist 08/06/21 06/07/22 [facility] [address] [place], [place] [address] [place], Assigned Sleep 08/01/21 Angel Turcios, Provider [address] [place], [place] [address] Lesly Celaya MD Assigned Surgical 09/05/21 [address] [place] [address] Tawana Patel MA [facility] 09/30/21 Worker Ramses Mcpherson Assigned OBGYN 11/07/21 MD Onesimo Provider [address] [place] [address] Obdulio Barrera MD Critical Care 01/24/22 [address] [facility] [address] [place], [place] [phone] Obdulio Barrera, Assigned Pulmonology 02/06/22 MD Provider [address] [facility] [address] [place], [place] [address] Lesvia Stanley, [facility] Cardiac Rehabilitation 03/03/22 03/03/23 [facility] Therapist [address] [place] [address] Marilia Deluna, PhD Assigned Behavioral 02/20/22 [address] [facility] [place] [place] [address] Niyah Decker, [facility] Pharmacist Pharmacist 03/07/22 [address] [facility] [address] [place] [address] Clari Poole, Pharmacist Pharmacist 03/07/22 06/15/22 [facility] [address] [facility] [place] [address] Lesvia Stanley, [facility] Cardiac Rehabilitation 03/17/22 03/17/23 [facility] Therapist [address] [place] [address] Clari Ruiz Assigned MT 04/09/22 05/27/22 Jocelyn [facility] Pharmacist [address] [place], [place] [address] Niyah Warner, Lead Ladies Suit Operator Primary Care - CC 06/27/22 RN Mago Swift, [facility] Lead Ladies Suit Operator Oil Sales And Service Rep - 08/05/21 Clinical documented as of this encounter
--- OUTSIDE RECORDS SUMMARY | 2022-09-21 04:02 | XMS_ITS | Encounter Summary ---
:1980 Author Organization [facility] Address [address] [place] [address] Care Team Providers Name Role Phone Aydee Burton LINING MACHINE OPERATOR MULTIMEDIA TEACHER Primary Care Provider Aydee Burton APRN MULTIMEDIA TEACHER Unavailable [phone] Louisa Hood LINING MACHINE OPERATOR MULTIMEDIA TEACHER Unavailable [phone] Clari Ruiz [facility] Unavailable Angel Hannah MD Unavailable Lesly Celaya MD Unavailable Tawana Patel MA Unavailable Unavailable Ramses Mcpherson MD Unavailable [phone] Obdulio Barrera MD Unavailable [phone] Obdulio Barrera MD Unavailable [phone] Lesvia Stanley Unavailable Marilia Deluna PhD Unavailable Niyah Decker [facility] Unavailable Clari Poole [facility] Unavailable Lesvia Stanleyn EP Unavailable Joseph Clari Jocelyn [facility] Unavailable [phone] Niyah Warner RN Unavailable JamisonMago [facility] Unavailable Encounter Details Date Type Department Care Team Description 05/19/2022 Travel Social History Tobacco Use Types Packs/Day [...] er 08/05/2021 How often do you attend judaism or anabaptism services? Never 08/05/2021 Do you belong to any clubs or organizations such as judaism N o 08/05/2021 groups, unions, fraternal or [...] at Date Recorded Female 11/09/2021 7:53 PM FLUME RIDE OPERATOR COVID-19 Exposure Response Date Recorded In the last 10 days, have you been in contact with No / Unsu re 05/19/2022 8:48 AM CDT someone who was confirmed or suspected to have Coronavirus/COVID-19? documented as of this encounter Plan of Treatment Upcoming Encounters Date Type Specialty Care Team Description 09/26/2022 Appointment Speech Therapy Obdulio Barrera MD [address] [facility] 276 [place], [place] [address] Anabel Chew, CARVING MACHINE OPERATOR [facility] [address] [facility] 396 [place], [place] [address] 09/27/2022 Therapy Visit Physical Therapy Luisana Watkins, PT [address] [place] [address] 09/29/2022 Virtual Visit Pain & Palliative Marilia Deluna, [facility] PhD [address] [place], [place] [address] 09/30/2022 Office Visit Family Practice Aydee Burton, LINING MACHINE OPERATOR MULTIMEDIA TEACHER [address] [place] [id number] 10/03/2022 Therapy Visit Physical Therapy Una Reardon, PT [address] [place] [address] 10/10/2022 Hospital Encounter Surgery Lesly Celaya MD [address] [place], [place] [phone] 10/10/2022 Office Visit Surgery Lesly Celaya MD [address] [place], [place] [phone] Ninoska Flowers PA-C [address] [facility] [address] [place] [address] 10/10/2022 Surgery Surgery Lesly Celaya, EXCISION, MASSES - MD back, abdomen, [address] right lower [facility] extremity [place], [place] [address] 10/11/2022 Virtual Visit Pharm Clari Stoll, [facility] [address] [place] [address] 10/14/2022 Appointment Speech Therapy Anabel Chew, CARVING MACHINE OPERATOR [address] [address] 10/21/2022 Office Visit Pulmonology Obdulio Barrera MD [address] [address] 10/25/2022 PRE VISIT ENT Charo Burton MD Previsit [address] [place], [place] [address] 10/25/2022 Office Visit ENT Charo Burton MD [address] [place], [place] [address] 10/25/2022 Office Visit ENT Provider, 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 Cream Maker 10/28/2022 Appointment Speech Therapy Anabel Chew, CELINE [address] [address] 11/17/2022 Appointment Speech Therapy Anabel Chew SLP [address] [address] 12/23/2022 Office Visit Neurology Colby Yeung MD [address] [place] [address] Scheduled Procedures Name Priority Associated Diagnoses Date/Time EXCISION, MASS, TORSO Lipoma of skin and subcuta neous 10/10/2022 7:30 AM FLUME RIDE OPERATOR tissue documented as of this encounter Visit Diagnoses Not on filedocumented in this encounter Additional Health Concerns Assessment Noted Time PHQ-9 Depression Total Score: 20 05/19/2022 9:02 AM CD T documented as of this encounter Care Teams Chemists Relationship Specialty Start Date End Date Aydee Burton, PCP - General Nurse Practitioner - 05/17/21 LINING MACHINE OPERATOR MULTIMEDIA TEACHER Family [address] [place], [place] [phone] Aydee Burton, Assigned PCP 04/28/21 LINING MACHINE OPERATOR MULTIMEDIA TEACHER [address] [place] [address] Louisa Hood, Assigned Neuroscience 07/11/21 LINING MACHINE OPERATOR MULTIMEDIA TEACHER Provider [address] [place], [place] [phone] Clari Ruiz Pharmacist Pharmacist 08/06/21 [facility]/07/[facility] [address] [place], [place] [address] [place], Assigned Sleep 08/01/21 Angel Turcios, Provider [address] [place], [place] [address] Lesly Celaya MD Assigned Surgical 09/05/21 [address] Provider [place], [place] [phone] Tawana Patel MA [facility] 09/30/21 Worker Ramses Mcpherson Assigned OBGYN 11/07/21 MD Onesimo Provider [address] [place], [place] [phone] Obdulio Barrera MD Critical Care 01/24/22 [address] [facility] [address] [place], [place] [phone] Obdulio Barrera, Assigned Pulmonology 02/06/22 MD Provider 420 [facility] 276 [place], [place] [address] Lesvia Stanley, GHADA Cardiac Rehabilitation 03/03/22 03/03/23 [facility] Therapist [address] [place] [address] Marilia Deluna, PhD Assigned Behavioral 02/20/22 [address] [facility] [place] [place] [address] Niyah Decker, [facility] Pharmacist Pharmacist 03/07/22 420 [facility] [address] [place] [address] Clari Poole, Pharmacist Pharmacist 03/07/22 06/15/22 [facility] [address] [place] [address] Lesvia Stanley, GHADA Cardiac Rehabilitation 03/17/22 03/17/23 [facility] Therapist [address] [address] Clari Ruiz Assigned MT 04/09/22 05/27/22 Jocelyn [facility] Pharmacist [address] [place] [address] Niyah Warner, Lead Information Assurance Officer Primary Care - CC 06/27/22 RN Mago Swift, [facility] Lead Information Assurance Officer Endocrinology Teacher - 08/05/21 Clinical documented as of this encounter
--- OUTSIDE RECORDS SUMMARY | 2022-09-21 04:02 | XMS_ITS | Encounter Summary ---
:1980 Author Organization [facility] Address [address] [place] [address] Care Team Providers Name Role Phone Aydee Burton TINTER PHOTOGRAPH HOT PIPE GAUGER Primary Care Provider Aydee Burton APRN HOT PIPE GAUGER Unavailable [phone] Louisa Hood TINTER PHOTOGRAPH HOT PIPE GAUGER Unavailable [phone] Clari Ruiz [facility] Unavailable [phone] Angel Hannah MD Unavailable Lesly Celaya MD Unavailable Tawana Patel MA Unavailable Unavailable Ramses Mcpherson MD Unavailable Obdulio Barrera MD Unavailable [phone] Obdulio Barrera MD Unavailable [phone] Lesvia Stanley Unavailable Marilia Deluna PhD Unavailable Niyah Decker [facility] Unavailable Clari Poole [facility] Unavailable KandiLesvia moonn EP Unavailable Joseph Clari Jocelyn [facility] Unavailable Niyah Warner RN Unavailable Jamison Mago M [facility] Unavailable Reason for Visit Reason Comments Fatigue Loss of Consciousness Encounter Details Date Type Department Care Team Description 05/25/2022 Emergency [facility] Vasu Spencer MD Syncope, unspecified syncope type; [facility] Emergency Dep t [facility] Excessive sleepiness; [address] [place] Shortness of breath; [place], [place] [address] [facility] Chest pain, unspecified type; [id number] [address] Fatigue, unspecified type; [phone] [place] [address] Facial pain [phone] (Wo rk) Social History Tobacco Use Types [...] How often do you attend mu-ism or jehovah's witness services? Never 08/05/2021 Do you belong to [...] at Date Recorded Female 11/09/2021 7:53 PM REGULAR SENIOR CARE PROVIDER COVID-19 Exposure Response Date Recorded In the last 10 days, have you been in contact with No / Unsu re 05/25/2022 10:05 AM CDT someone who was confirmed or suspected to have Coronavirus/COVID-19? documented as of this encounter Last Filed Vital Signs Vital Sign Reading Time Taken Comments Blood Pressure 126/76 05/25/2022 2:20 PM CDT Pulse 88 05/25/2022 2:25 PM CDT Temperature 37.1 ??C (98.7 ??F) 05/25/2022 10:11 AM CDT Respiratory Rate 13 05/25/2022 12:15 PM CDT Oxygen Saturation 96% 05/25/2022 2:25 PM CDT Inhaled Oxygen Concentration - - Weight - - Height - - Body Mass Index - - documented in this encounter Discharge Instructions Discharge InstructionsChalo Spencer MD - 05/25/2022 1:23 PM CDT Discharge Instructions Syncope Syncope (fainting) is a sudden, short loss of consciousness (passing out spell). People will usuallyfall to the ground when they faint or slump over if seated. People may also shake when this happens,and it can sometimes be difficult to tell the difference between syncope and a seizure. At this time, your provider does not find a reason to suspect that your fainting spell is a sign of anything dangerous or life-threatening. However, sometimes the signs of serious illness do not show up right away. Generally, every Emergency Department visit should have a follow-up clinic visit with either a primary or a specialty clinic/provider. Please follow-up as instructed by your emergency provider today. Return to the Emergency Department if: You faint again. You have any significant bleeding. You have chest pain or a fast or irregular heartbeat. You feel short of breath. You cough up any blood. You have abdominal (belly) pain or unusual back pain. You have ongoing vomiting (throwing up) or diarrhea (loose stools). You have a black or tarry bowel movement, or blood in the stool or in your vomit. You have a fever over 101??F. You lose feeling or cannot move a part of your body or cannot talk normally. You are confused, have a headache, cannot see well, or have a seizure. DO NOT DRIVE. CALL 911 INSTEAD! What can I do to help myself? Follow any specific instructions that your provider discussed with you. If you feel light-headed, make sure to sit down right away, even if you have to sit on the floor. Follow up with your regular medical provider as discussed for further management. This may include lowering your blood pressure medications, insulin or other diabetic medications, checking your blood sugar more frequently, and drinking more fluids, taking medicines for vomiting or diarrhea or getting up slower. If you were given a prescription for [...] is anything that worries you. Discharge Instructions Chest Pain You have been seen today for chest pain or discomfort. At this time, your provider has found no signs that your chest pain is due to a serious or life- threatening condition, (or you have declined more testing and/or admission to the hospital). However, sometimes there is a serious problem that does not show up right away. Your evaluation today may not be complete and you may need further testing and evaluation. Generally, every Emergency Department visit should have a follow-up clinic visit with either a primary or a specialty clinic/provider. Please follow-up as instructed by your emergency provider today. Return to the Emergency Department if: Your chest pain changes, gets worse, starts to happen more often, or comes with less activity. You are newly short of breath. You get very weak or tired. You pass out or faint. You have any new symptoms, like fever, cough, numb legs, or you cough up blood. You have anything else that worries you. Until you follow-up with your regular provider, please do the following: If you have questions, contact your regular provider. Follow-up with your regular provider/clinic as directed; this is very important. If you were given a prescription for [...] if there is anything that worries you. documented in this encounter Medications at Time [...] 90 mL 5 07/2022 (2.5 MG/3ML) 0.083% by nebulization every [...] days after symptoms resolve. gabapentin (NEURONTIN) Take 2 capsules (600 240 capsule 0 05/27/2022 300 MG mg) by mouth 4 times capsuleIndications: daily Bilateral occipital neuralgia montelukast Take 1 tablet (10 mg) 30 tablet 4 03/11/2022 (SINGULAIR) 10 MG by mouth every tabletIndications: evening Moderate persistent asthma without complication omeprazole (PRILOSEC) Take 1 capsule (20 60 [...] of breath) documented as of this encounter ED Notes Ailyn Liriano RN - 05/25/2022 10:07 AM CDT Pt states that for the last week she has been generally fatigued. She states that she is having episodes of loss of consciousness lasting under a minute. She estimates this happens at least 5x/day. Pt has had a cough as well. When pt loses consciousness she says she is usually sitting down and has never fallen and hit her head when this happens. ABC intact. Chalo Spencer MD - 05/25/2022 10:05 AM CDT History Chief Complaint: Fatigue and Loss of Consciousness The history is provided by the patient. Marta Hill is a 42 year old female with history of occipital neuralgia, PTSD and anxiety whopresents with fatigue and loss of consciousness. The patient reports for the last week she has experienced a loss of consciousness when sitting, and that her vision is black for a few seconds after walking up. She does not fall over when these episodes occur. She claims that she experiences this several times a day. She also reports new increased fatigue. In addition she reports a cough, a worsening of asthma, and that she experiences chest tightness and coughing when walking. No vomiting or diarrhea. No fever. No vision changes, headache or numbness/weakness in her arms and legs. No new chest painand palpitations. Patient adds that she has recently increased her gabapentin dose from 400 mg q.i.d. to 600 mg q.i.d. Review of Systems Constitutional: Positive for fatigue. Negative for fever. Eyes: Negative for visual disturbance. Respiratory: Positive for cough and chest tightness. Cardiovascular: Negative for chest pain and palpitations. Gastrointestinal: Negative for diarrhea, nausea and vomiting. Neurological: Positive for syncope. Negative for weakness, numbness and headaches. All other systems reviewed and are negative. Allergies: Amoxicillin Medications: albuterol Benzonatate SYMBICORT WELLBUTRIN XL CYMBALTA Gabapentin Duoneb LAMICTAL ROBAXIN SINGULAIR omeprazole Zofran Seroquel Spiriva Past Medical History: PTSD Occipital neuralgia Anxiety Past Surgical History: Breast augmentation ENT surgery Genitourinary surgery Hysterectomy Orthopedic surgery Family History: Mother: Depression, anxiety, substance abuse, asthma. Father: Hypertension, cerebrovascular disease, depression,, substance abuse, asthma, DVT. Sister: Depression, anxiety, substance abuse, asthma. Social History: Patient presents to the ED alone. She arrived at the ED via private vehicle. Physical Exam Patient Vitals for the past 24 hrs: BP Temp Temp src Pulse Resp SpO2 05/25/22 1215 113/67 -- -- 86 13 97 % 05/25/22 1200 119/73 -- -- 89 13 98 % 05/25/22 1145 126/79 -- -- 89 21 94 % 05/25/22 1130 124/81 -- -- 90 14 96 % 05/25/22 1120 122/76 -- -- -- -- -- 05/25/22 1011 124/77 98.7 ??F (37.1 ??C) Temporal 107 16 99 % Physical Exam VS: Reviewed per above HENT: Mucous membranes moist, no nuchal rigidity EYES: sclera anicteric CV: Rate as noted, regular rhythm. RESP: Effort normal. Breath sounds are normal bilaterally. GI: no tenderness/rebound/guarding, not distended. NEURO: GCS 15, cranial nerves II through XII are intact, 5 out of 5 strength in all 4 extremities, sensation is intact light touch in all 4 extremities MSK: No deformity of the extremities SKIN: Warm and dry Emergency Department Course ECG ECG taken at 1025, ECG read at 1025 Sinus tachycardia No significant change as compared to prior, dated 03/08/2022. Rate 102 bpm. AZ interval 178 ms. QRS duration 86 ms. QT/QTc 334/435 ms. P-R-T axes 41 51 48. Imaging: XR Chest 2 Views Preliminary Result IMPRESSION: There are no acute infiltrates. The cardiac silhouette is not enlarged. Pulmonary vasculature is unremarkable. Leadless operating theatre technician 3 to 7 Days (Results Pending) Report per radiology Laboratory: Labs Ordered and Resulted from Time of ED Arrival to Time of ED Departure BASIC METABOLIC PANEL - Abnormal Result Value Sodium 139 Potassium 3.5 Chloride 106 Carbon Dioxide (CO2) 31 Anion Gap 2 (*) Urea Nitrogen 14 Creatinine 0.62 Calcium 8.4 (*) Glucose 89 GFR Estimate >90 CBC WITH PLATELETS AND DIFFERENTIAL - Abnormal WBC Count 6.5 RBC Count 4.15 Hemoglobin 12.1 Hematocrit 40.0 MCV 96 MCH 29.2 MCHC 30.3 (*) RDW 13.7 Platelet Count 283 % Neutrophils 68 % Lymphocytes 22 % Monocytes 8 % Eosinophils 1 % Basophils 1 % Immature Granulocytes 0 NRBCs per 100 WBC 0 Absolute Neutrophils 4.4 Absolute Lymphocytes 1.4 Absolute Monocytes 0.5 Absolute Eosinophils 0.1 Absolute Basophils 0.1 Absolute Immature Granulocytes 0.0 Absolute NRBCs 0.0 TROPONIN I - Normal Troponin I High Sensitivity <3 D DIMER QUANTITATIVE - Normal D-Dimer Quantitative 0.44 Emergency Department Course: Reviewed: I reviewed nursing notes, vitals, past medical history and Care Everywhere Assessments: 1100 I obtained history and examined the patient as noted above. 1315 I rechecked the patient and explained findings and prepared for discharge. Interventions: 1142 NS, 1 L, IV Disposition: The patient was discharged to home. Impression & Plan Medical Decision Making: Patient presents to the ER for evaluation of frequent episodes of syncope versus falling asleep overthe past week. On arrival vital signs are reassuring. No focal neurodeficits. EKG is sinus rhythm without ischemic change. No dysrhythmia on telemetry monitoring. Plan for outpatient Zio patch testing.Also consider that increasing gabapentin dose that she has been taking for unspecified facial pain might be contributing to her sleepiness and syncope. Discussed trying lower dose. Patient did mention some shortness of breath and chest pain. EKG and troponin do not suggest ACS. With lower pretest probability and negative D- dimer, lower suspicion for PE. Chest x-ray is clear. Encouraged ongoing primary care follow. Return precautions discussed prior to discharge. Diagnosis: ICD-10-CM 1. Syncope, unspecified syncope type R55 2. Excessive sleepiness G47.10 3. Shortness of breath R06.02 4. Chest pain, unspecified type R07.9 Scribe Disclosure: Zac Russell & Lor Mcintyre, am serving as a scribe at 10:49 AM on 05/25/2022 to document services personally performed by Chalo Spencer MD based on my observations and the provider's statements to me. Chalo Spencer MD 05/25/22 1527 documented in this encounter Miscellaneous Notes Result Encounter Note - Aydee Burton APRN HOT PIPE GAUGER - 05/25/2022 2:28 PM CDT Dear Marta, Here is a summary of your recent test results: Iron levels and Vitamin D look good. Lets get you talking with MTM (pharmacy) about medication interactions. For additional lab test information, labtestsonline.org is an excellent reference. In addition, here is a list of due or overdue Health Maintenance reminders: Asthma Action Plan - yearly Never done Preventive Care Visit due on 06/11/2022 Please call us at [phone] (or use [facility]) to address the above recommendations if needed. Thank you for choosing [facility]. It was an honor and a privilege to participate in your care. Healthy regards, TARA Spivey [facility] documented in this encounter Plan of Treatment Upcoming Encounters Date Type Specialty Care Team Description 09/26/2022 Appointment Speech Therapy Obdulio Barrera MD [address] [facility] [address] [place], [place] [id number] Anabel Chew, CERTIFIED MAINTENANCE WELDER [facility] [address] [facility] [address] [place] [address] 09/27/2022 Therapy Visit Physical Therapy Luisana Watkins, PT [address] [place] [address] 09/29/2022 Virtual Visit Pain & Palliative Marilia Deluna, [facility] [place] [address] [place] [address] 09/30/2022 Office Visit Family Practice Aydee Burton, ELADIO HOT PIPE GAUGER [address] [place], [place] [address] 10/03/2022 Therapy Visit Physical Therapy Una Reardon, PT [address] [place] [phone] 10/10/2022 Hospital Encounter Surgery Lesly Celaya MD [address] [facility] [place] [place] [phone] 10/10/2022 Office Visit Surgery Lesly Celaya MD [address] [place] [address] Ninoska Flowers PA-C [address] [facility] [address] [place], [place] [phone] 10/10/2022 Surgery Surgery Lesly Celaya, EXCISION, MASSES - MD back, abdomen, [address] extremity [place], [place] [address] 10/11/2022 Virtual Visit Clari Su, [facility] [address] [id number] [place] [address] 10/14/2022 Appointment Speech Therapy Anabel Chew, CERTIFIED MAINTENANCE WELDER [address] [phone] 10/21/2022 Office Visit Pulmonology Obdulio Barrera MD [address] [address] 10/25/2022 PRE VISIT ENT Charo Burton MD Previsit [address] [place] [phone] 10/25/2022 Office Visit ENT Charo Burton MD [address] [place] [id number] 10/25/2022 Office Visit ENT Provider, 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 Light Coil Winder 10/28/2022 Appointment Speech Therapy Anabel Chew SLP [address] 7[address]155 11/17/2022 Appointment Speech Therapy Anabel Chew SLP [address] [phone] 12/23/2022 Office Visit Neurology Colby Yeung MD [address] [place] [id number] Scheduled Orders Name Type Priority Associated Diagnoses Order S chedule EKG 12-lead, tracing EKG STAT One Yeyo webster for 1 Occurrences only starting 2021 until 05/25/2022 Scheduled Procedures Name Priority Associated Diagnoses Date/Time EXCISION, MASS, TORSO Lipoma of skin and subcuta neous 10/10/2022 7:30 AM REGULAR SENIOR CARE PROVIDER tissue documented as of this encounter Procedures Procedure Name Priority Date/Time Associated Comments Diagnosis LEADLESS PHOTOGRAPHS CURATOR STAT 05/25/2022 1:24 APPLICATION AND PM CDT INTERPRETATION 3 TO 7 DAY XR CHEST 2 VIEWS STAT 05/25/2022 12:55 Results for this PM CDT procedure are i n the results section. EXTRA TUBE STAT 05/25/2022 11:23 Results for this AM CDT procedure are i n the results section. EXTRA RED TOP TUBE STAT 05/25/2022 11:23 Resul ts for this AM CDT procedure are i n the results section. CBC WITH PLATELETS AND STAT 05/25/2022 11:23 R esults for this DIFFERENTIAL AM CDT procedure are i n the results section. CBC WITH PLATELETS & STAT 05/25/2022 11:23 Res ults for this DIFFERENTIAL AM CDT procedure are i n the results section. VITAMIN D DEFICIENCY Add-On 05/25/2022 11:23 Fatigue, Res ults for this SCREENING AM CDT unspecified type procedure a re in the results section. TSH WITH FREE T4 REFLEX Add-On 05/25/2022 11:23 Fatigue, Results for this AM CDT unspecified type procedure a re in the results section. TROPONIN I STAT 05/25/2022 11:23 Results for this AM CDT procedure are i n the results section. IRON AND IRON BINDING Add-On 05/25/2022 11:23 Fatigue, Re sults for this CAPACITY AM CDT unspecified type procedure a re in the results section. FERRITIN Add-On 05/25/2022 11:23 Fatigue, Results for this AM CDT unspecified type procedure a re in the results section. D DIMER QUANTITATIVE STAT 05/25/2022 11:23 Res ults for this AM CDT procedure are i n the results section. CRP INFLAMMATION Add-On 05/25/2022 11:23 Facial pain Results for this AM CDT procedure are i n the results section. BASIC METABOLIC PANEL STAT 05/25/2022 11:23 Re sults for this AM CDT procedure are i n the results section. EKG 12-LEAD, TRACING STAT 05/25/2022 10:25 Res ults for this ONLY AM CDT procedure are i n the results section. documented in this encounter Results LEADLESS PHOTOGRAPHS CURATOR APPLICATION AND INTERPRETATION 3 TO 7 DAY (05/25/2022 1:24 PM CDT) Anatomical Region Laterality Modality Other Specimen (Source) Anatomical Location Collection Method / Collectio n Time Received Time / Laterality Volume Narrative This result has an attachment that is no t available. Chalo Spencer MD CV CARDIAC SERVICES ORDERABL ES XR Chest 2 Views (05/25/2022 12:55 PM CDT) Anatomical Region Laterality Modality Chest Computed Radiography Specimen (Source) Anatomical Location Collection Method / Collectio n Time Received Time / Laterality Volume Impressions 05/25/2022 1:59 PM CDT IMPRESSION: ??There are no acute infiltrates. The cardiac silhouette is not enlarged. Pulmonary vasculature is u nremarkable. TEAGAN LAURENT MD Narrative 05/25/2022 1:59 PM CDT CHEST TWO VIEWS ??05/25/2022 12:55 PM HISTORY: ??Short of breath, cough. COMPARISON: January 21, 2022 Procedure Note Teagan Laurent MD - 05/25/2022Fo rmatting of this note might be different from the original. CHEST TWO VIEWS 05/25/2022 12:55 PM HISTORY: Short of breath, cough. COMPARISON: January 21, 2022 IMPRESSION: There are no acute infiltrat es. The cardiac silhouette is not enlarged. Pulmonary vasculature is u nremarkable. TEAGAN LAURENT MD Chalo Spencer MD IMG DIAGNOSTIC IMAGING ORDER TIA Vitamin D Deficiency (05/25/2022 11:23 AM CDT) P athologist Signature Vitamin D, 43 20 - 75 05/30/2022 [facility] Total ug/L 11:14 AM CDT CORE/PROT/ENDO (25-Hydroxy) Specimen Anatomical Collection Method / Collection Time Recei edil Time (Source) Location / Volume Laterality Blood STRUCTURE OF RIGHT Venipuncture / 05/25/2022 11:23 UPPER LIMB / Unknown AM CDT 11:29 AM CDT Unknown Narrative SPECIALTY CORE/PROT/ENDO - 05/30/2022 11:14 AM CDT Season, race, dietary intake, and treatment affect the concentration of 44-ubqzlra-Vudhxes D. Values may decrease during winter months [...] determination by LCMSMS test VITD23. Aydee Burton APRN HOT PIPE GAUGER LAB - BLOOD ORDERABLES Performing Organization Address City/State/ZIP Code Phon e Number SPECIALTY CORE/PROT/ENDO Specialty [place], [place] [address] Core/Prot/Endo [address] [facility] [address] Building, Room 3-580 Iron and iron binding capacity (05/25/2022 11:23 AM CDT) athologist Signature Iron 71 35 - 180 [...] Address City/State/ZIP Code [place] [phone] Care Lab [address] Lab (1st floor, no room number) Ferritin (05/25/2022 11:23 AM CDT) athologist Signature Ferritin 15 12 - 150 05/27/2022 [facility] ng/mL 2:59 PM CDT Specimen Anatomical Collection Method / Collection Time Recei edil Time (Source) Location / Volume Laterality Blood STRUCTURE OF RIGHT Venipuncture / 05/25/2022 11:23 UPPER LIMB / Unknown AM CDT 11:29 AM CDT Unknown Aydee Burton APRN HOT PIPE GAUGER LAB - BLOOD ORDERABLES Performing Organization Address City/State/[place] [phone] Care Lab [address] Lab (1st floor, no room number) CRP, inflammation (05/25/2022 11:23 AM CDT) Analysis [...] LAB - BLOOD ORDERABLES Performing Organization Address City/[facility]/[place]IP [place] [phone] Care Lab [address] Lab (1st floor, no room number) TSH with free T4 reflex (05/25/2022 11:23 [...] Organization Address City/State/[place] [address] Care Lab [address] Lab (1st floor, no room number) Extra Red Top Tube (05/25/2022 11:23 AM CDT) P athologist Signature Hold Specimen JIC 05/25/2022 [facility] 12:34 PM CDT Specimen Anatomical Collection Method / Collection Time Recei edil Time (Source) Location / Volume Laterality Blood STRUCTURE OF RIGHT Venipuncture / 05/25/2022 11:23 UPPER LIMB / Unknown AM CDT 11:29 AM CDT Unknown Chalo Spencer MD LAB - BLOOD ORDERABLES Performing Organization Address City/State/ZIP Code Phon [place] [address] Care Lab [address] Lab (1st floor, no room number) (ABNORMAL) CBC with platelets and differential (05/25/2022 11:23 AM CDT) Patholo gist Method Time Signature WBC Count 6.5 4.0 - 05/25/2022 [facility] 11.0 11:46 AM CDT 10e3/uL RBC Count 4.15 3.80 - 05/25/2022 [facility] 5.20 11:46 AM CDT 10e6/uL Hemoglobin 12.1 11.7 - 05/25/2022 [facility] 15.7 g/dL 11:46 AM CDT Hematocrit 40.0 35.0 - 05/25/2022 [facility] 47.0 % 11:46 AM CDT MCV 96 78 - 100 05/25/2022 [facility] fL 11:46 AM CDT MCH 29.2 26.5 - 05/25/2022 [facility] 33.0 pg 11:46 AM CDT MCHC 30.3 (L) 31.5 - 05/25/2022 [facility] 36.5 g/dL 11:46 AM CDT RDW 13.7 10.0 - 05/25/2022 [facility] 15.0 % 11:46 AM CDT Platelet Count 283 150 - 450 05/25/2022 [facility] 10e3/uL 11:46 AM CDT % Neutrophils 68 % 05/25/2022 [facility] 11:46 AM CDT % Lymphocytes 22 % 05/25/2022 [facility] 11:46 AM CDT % Monocytes 8 % 05/25/2022 [facility] 11:46 AM CDT % Eosinophils 1 % 05/25/2022 [facility] 11:46 AM CDT % Basophils 1 % 05/25/2022 [facility] 11:46 AM CDT % Immature 0 % 05/25/2022 [facility] Granulocytes 11:46 AM CDT NRBCs per 100 0 <1 /100 05/25/2022 [facility] WBC 11:46 AM CDT Absolute 4.4 1.6 - 8.3 05/25/2022 [facility] Neutrophils 10e3/uL 11:46 AM CDT Absolute 1.4 0.8 - 5.3 05/25/2022 [facility] Lymphocytes 10e3/uL 11:46 AM CDT Absolute 0.5 0.0 - 1.3 05/25/2022 [facility] Monocytes 10e3/uL 11:46 AM CDT Absolute 0.1 0.0 - 0.7 05/25/2022 [facility] Eosinophils 10e3/uL 11:46 AM CDT Absolute 0.1 0.0 - 0.2 05/25/2022 [facility] Basophils 10e3/uL 11:46 AM CDT Absolute 0.0 <=0.4 05/25/2022 [facility] Immature 10e3/uL 11:46 AM CDT Granulocytes Absolute NRBCs 0.0 10e3/uL 05/25/2022 [facility] 11:46 AM CDT Specimen Anatomical Collection Method / Collection Time Recei edil Time (Source) Location / Volume Laterality Blood STRUCTURE OF RIGHT Venipuncture / 05/25/2022 11:23 UPPER LIMB / Unknown AM CDT 11:45 AM CDT Unknown Chalo Spencer MD LAB - BLOOD ORDERABLES Performing Organization Address City/State/ZIP Code Phon [place] [address] Care Lab [address] Lab (1st floor, no room number) D dimer quantitative (05/25/2022 11:23 AM CDT) Analysis Performed At Patho logist Time Signature D-Dimer 0.44 0.00 - 05/25/2022 [facility] Quantitative 0.50 ug/mL 12:17 PM CDT FEU Specimen Anatomical Collection Method / Collection Time Recei edil Time (Source) Location / Volume Laterality Blood STRUCTURE OF RIGHT Venipuncture / 05/25/2022 11:23 UPPER LIMB / Unknown AM CDT 11:29 AM CDT Unknown Narrative [facility] - 05/25/2022 12:17 PM CDT This D-dimer assay is intended for use i n conjunction with a clinical pretest probability assessment model to exclude pulmonary embolism (PE) and deep venous thrombosis (DVT) in outpatients suspecte d of PE or DVT. The cut-off value is 0.50 ug/mL FEU. Chalo Spencer MD LAB - BLOOD ORDERABLES Performing Organization Address City/[facility]/ZIP Code Ph[place] [address] Care Lab [address] Lab (1st floor, no room number) Troponin I (05/25/2022 11:23 AM CDT) P athologist Signature Troponin I High <3 <54 ng/L 05/25/2022 [facility] LABORATORY Sensitivity 11:58 AM CDT Comment: This Troponin-I result was obta ined using a Siemens Dimension [place] High Sensitivity Troponin-I assay (TNIH). Eff ective 10/05/21, nine labs/sites in the [facility] switched from a Siemens [place] Contemporary Troponin I assay (CTNI) to a Siemens [place] High-Sensitivity Troponi n I assay (TNIH). Specimen Anatomical Collection Method / Collection Time Recei edil Time (Source) Location / Volume Laterality Blood STRUCTURE OF RIGHT Venipuncture / 05/25/2022 11:23 UPPER LIMB / Unknown AM CDT 11:29 AM CDT Unknown Chalo Spencer MD LAB - BLOOD ORDERABLES Performing Organization Address City/[facility]/ZIP Code [place] [address] Care Lab [address] Lab (1st floor, no room number) (ABNORMAL) Basic metabolic panel (05/25/2022 11:23 AM CDT) Analysis Performed At Patho logist Time Signature Sodium 139 133 - 144 05/25/2022 LABORATORY mmol/L 11:55 AM CDT Potassium 3.5 3.4 - 5.3 05/25/2022 LABORATORY mmol/L 11:55 AM CDT Chloride 106 94 - 109 05/25/2022 LABORATORY mmol/L 11:55 AM CDT Carbon Dioxide 31 20 - 32 05/25/2022 LABORATORY (CO2) mmol/L 11:55 AM CDT Anion Gap 2 (L) 3 - 14 05/25/2022 LABORATORY mmol/L 11:55 AM CDT Urea Nitrogen 14 7 - 30 05/25/2022 LABORATORY mg/dL 11:55 AM CDT Creatinine 0.62 0.52 - 05/25/2022 LABORATORY 1.04 mg/dL 11:55 AM CDT Calcium 8.4 (L) 8.5 - 10.1 05/25/2022 LABORATORY mg/dL 11:55 AM CDT Glucose 89 70 - 99 05/25/2022 LABORATORY mg/dL 11:55 AM CDT GFR Estimate >90 >60 05/25/2022 LABORATORY mL/min/1.7 11:55 AM CDT 3m2 Comment: Effective November 02, 2021 eGF Rcr in adults is calculated using the 2020 CKD-EPI creatinine equation which includ es age and gender (Yulia et al., NEJM, DOI: 10.1056/MOUDpe4925075) Specimen Anatomical Collection Method / Collection Time Recei edil Time (Source) Location / Volume Laterality Blood STRUCTURE OF RIGHT Venipuncture / 05/25/2022 11:23 UPPER LIMB / Unknown AM CDT 11:29 AM CDT Unknown Chalo Spencer MD LAB - BLOOD ORDERABLES Performing Organization Address City/State/ZIP Code [place] [phone] Care Lab [address] Lab (1st floor, no room number) EKG 12 lead (05/25/2022 10:25 AM CDT) Component Value Ref Range Test Analysis Performed Pathologis t Method Time At Signature Systolic Blood mmHg RADIOLOGY Pressure RESULTS Diastolic Blood mmHg RADIOLOGY Pressure RESULTS Ventricular Rate 102 BPM RADIOLOGY RESULTS Atrial Rate 102 BPM RADIOLOGY RESULTS [place] Interval 178 ms RADIOLOGY RESULTS QRS Duration 86 ms RADIOLOGY RESULTS QT 334 ms RADIOLOGY RESULTS QTc 435 ms RADIOLOGY RESULTS [place] 41 degrees RADIOLOGY RESULTS R AXIS 51 degrees RADIOLOGY RESULTS T [place] 48 degrees RADIOLOGY RESULTS Interpretation Sinus tachycardia RADIOLO GY ECG Otherwise normal ECG RESULTS When compared with ECG of 21-JAN-2022 09:41, No significant change was found Confirmed by - EMERGENCY RODNEY Murray PHYSICIAN ([id number]), editor greeting card FRAN HORTON (1961) on 05/25/2022 12:46:20 PM Specimen Anatomical Collection Method Collection Time Receive d Time (Source) Location / / Volume Laterality 05/25/2022 10:25 05/25/2022 AM CDT 12:46 PM CDT Margarito Hope MD ECG ORDERABLES Performing Organization Address City/State/ZIP Code Phon e Number RADIOLOGY RESULTS documented in this encounter Visit Diagnoses Diagnosis Syncope, unspecified syncope type Excessive sleepiness Hypersomnia, unspecified Shortness of breath Chest pain, unspecified type Fatigue, unspecified type Facial pain Headache Lipoma of skin and subcutaneous tissue Lipoma of other skin and subcutaneous ti ssue documented in this encounter Administered Medications Inactive Administered Medications - up to 3 most recent administrations Medication Order MAR Action Action Date Dose Rate Site 0.9% sodium chloride BOLUS New Bag 05/25/2022 11:42 AM 1,000 mLs 1000 mL/hr Intravenous, 1,000 mL, CDT ONCE, at 1,000 mL/hr, Administer over 1 Hours, On Mon05/25/22 at 1050, For 1 dose sodium chloride 0.9% infusion at 125 mL/hr, Intravenous, CONTINUOUS, A dminister after the bolus., Starting on Mon05/25/22 at 1150, Until Mon05/25/22 at 1628 documented in this encounter Active and Recently Administered Medications Times are shown in CDT. Scheduled Medication Order 05/23/2022 05/24/2022 05/25/2022 0.9% sodium chloride BOLUS (COMPLETED) 1142 (New Bag - Provider: Minnie Richard, RN)1423 (Stopped - Provider: Minnie Richard, RN) Intravenous, 1,000 mL, ONCE, at 1,000 mL /hr, Administer over 1 Hours, On Mon05/25/22 at 1050, For 1 dose Continuous Medication Order 05/23/2022 05/24/2022 05/25/2022 sodium chloride 0.9% infusion 11 50 (Canceled Entry - Provider: Orders Generic Provider - Comment: Automatically canceled at discontinue of medication order) at 125 mL/hr, Intravenous, CONTINUOUS, A dminister after the bolus., Starting on Mon05/25/22 at 1150, Until Mon05/25/22 at 1628 documented in this encounter Additional Health Concerns Assessment Noted Time PHQ-9 Depression Total Score: 20 05/19/2022 9:02 AM CD T documented as of this encounter Care Teams Copier Technician Relationship Specialty Start Date End Date Aydee Burton, PCP - General Nurse Practitioner - 05/17/21 TINTER PHOTOGRAPH HOT PIPE GAUGER Family [address] [place] [address] [phone] Aydee Burton, Assigned PCP 04/28/21 TINTER PHOTOGRAPH HOT PIPE GAUGER [address] [place], [place] [phone] Louisa Hood, Assigned Neuroscience 07/11/21 TINTER PHOTOGRAPH HOT PIPE GAUGER Provider [address] [place], [place] [phone] Clari Ruiz Pharmacist Pharmacist 08/06/21 06/07/22 Jocelyn, [facility] [address] [place], [place] [address] [place], Assigned Sleep 08/01/21 Angel Turcios, Provider [address] [place], [place] [phone] Lesly Celaya MD Assigned Surgical 09/05/21 [address] [place] [place] [address] Tawana Patel MA [facility] Health 09/30/21 Worker Ramses Mcpherson Assigned OBGYN 11/07/21 MD Teagan Provider [address] [place] [address] Obdulio Barrera MD Critical Care 01/24/[address] [place] [address] [address] [place], [place] [phone] Obdulio Barrera, Assigned Pulmonology 02/06/22 MD Provider [address] [place] [address] [address] [place], [place] [address] Lesvia Stanley, EP Cardiac Rehabilitation 03/03/22 03/03/23 [facility] Therapist [address] [place] [id number] Marilia Deluna, PhD Assigned Behavioral 02/20/22 [address] [facility] [place] [address] Niyah Decker, [facility] Pharmacist Pharmacist 03/07/[address] [place] [address] [address] [place] [address] Clari Poole, Pharmacist Pharmacist 03/07/22 06/15/22 [facility] [address] [address] Lesvia Stanley, GHADA Cardiac Rehabilitation 03/17/22 03/17/23 [facility] Therapist [address] [id number] Clari Ruiz Assigned MTM 04/09/22 05/27/22 Jocelyn [facility] Pharmacist [address] [place], [place] [phone] Niyah Warner, Lead Adjunct English Instructor Primary Care - CC 06/27/22 RN Mago Swift, [facility] Lead Adjunct English Instructor Agronomy Manager - 08/05/21 Clinical documented as of this encounter
--- OUTSIDE RECORDS SUMMARY | 2022-09-21 04:03 | XMS_ITS | Encounter Summary ---
:1980 Author Organization [place] Address [address] [place] [address] Care Team Providers Name Role Phone Aydee Burton INTERNAL MEDICINE VETERINARY TECHNICIAN AUTOMATIC FOLDER SEAMER Primary Care Provider [phone] Aydee Burton INTERNAL MEDICINE VETERINARY TECHNICIAN AUTOMATIC FOLDER SEAMER Unavailable [phone] Louisa Hood INTERNAL MEDICINE VETERINARY TECHNICIAN AUTOMATIC FOLDER SEAMER Unavailable [phone] Se Levy [facility] Unavailable Unavailable Clari Ruiz [facility] Unavailable Angel Hannah MD Unavailable Lesly Celaya MD Unavailable Tawana Patel MA Unavailable Unavailable Ramses Mcpherson MD Unavailable [phone] Obdulio Barrera MD Unavailable [phone] Obdulio Barrera MD Unavailable [phone] Lesvia Stanley Unavailable Marilia Deluna PhD Unavailable Niyah Decker [facility] Unavailable Clari Poole [facility] Unavailable Lesvia Stanley Unavailable JosephClari jay [facility] Unavailable [phone] [facility] Unavailable Reason for Visit Rehab Therapy Cardiac Therapy (Routine: Next available opening) - Authorized Specialty Diagnoses / Procedures Referred By Contact Refer red To Contact CARDIAC REHAB Diagnoses Asthma SOB (shortness of breath) [place] [id number] [facility] [place] [address] Phone: Referral ID Status Reason Start Date Expiration Date Visits V isits Requested Authorized [id number] Authorized 11/13/2021 11/12/2022 365 365 Encounter Details Date Type Department Care Team Description 04/26/2022 Hospital Encounter [facility] Ezequiel Barrera MD [address] [facility] 276 [place] [address] Cardiac and Pulmonary 1, Rh Pulmonary Rehab Rehabilitation [address] [place] [address] Social History Tobacco Use Types Packs/Day Years [...] How often do you attend baptism or congregational services? Never 08/05/2021 Do you [...] place to sleep or slept in a group home (including now)? 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 WELDER COVID-19 Exposure Response Date Recorded In the last 10 days, have you been in contact with No / Unsu re 04/26/2022 12:17 PM CDT someone who was confirmed or [...] mL 5 03/0 07/2022 (2.5 MG/3ML) 0.083% neb by nebulization [...] SOB daily (shortness of breath) ipratropium - albuterol Take 1 vial (3 [...] (post-traumatic stress total 300mg daily disorder), Anxiety QUEtiapine (SEROQUEL) Take 100 mg by mouth 30 tablet 2 02/2022 100 MG tablet as needed QUEtiapine (SEROQUEL) Take 200 mg by mouth 0 200 MG tablet At Bedtime vitamin D3 Take 1 tablet by 0 (CHOLECALCIFEROL) 50 mouth daily mcg (2000 units) tablet ascorbic acid (VITAMIN Take 750 mg by mouth 0 06/16/2022 C) 250 MG CHEW chewable daily tablet benzonatate (TESSALON) Take 1 capsule (200 30 capsule 4 02/1206/06/2022 200 MG mg) by mouth 3 times capsuleIndications: daily as needed for Moderate persistent cough asthma without complication clindamycin (CLEOCIN) TAKE 1 CAPSULE BY 0 022 05/14/2022 300 MG capsule MOUTH THREE TIMES DAILY UNTIL GONE clotrimazole (MYCELEX) Place 1 lozenge (10 70 lozenge 0 03/1308/26/2022 10 MG mg) inside cheek 5 lozengeIndications: times daily for 14 Thrush days Take for 7-14 days; use 2 days after symptoms resolve. gabapentin (NEURONTIN) 4 times daily 0 12/14/2021 04/29/2022 400 MG capsule ibuprofen TAKE 1 TABLET BY 0 03/26/2022 05/14/20 22 (ADVIL/MOTRIN) 800 MG MOUTH EVERY 8 HOURS tablet FOR PAIN methocarbamol (ROBAXIN) Take 1-1.5 tablets 90 tablet 1 /12/202105/14/2022 500 MG (500-750 mg) by mouth tabletIndications: 3 times daily as Chronic myofascial needed for muscle pain, Trigger point of spasms shoulder region, unspecified laterality montelukast (SINGULAIR) Take 1 tablet (10 mg) 30 tablet 4 0 03/11/2022 05/27/2022 10 MG by mouth every tabletIndications: evening Moderate persistent asthma without complication omeprazole (PRILOSEC) Take 1 capsule (20 60 capsule 1 202105/13/[address] mg) by mouth 2 times capsuleIndications: daily Chronic cough ondansetron (ZOFRAN Take 1 tablet (4 mg) 20 tablet 0 202107/08/2022 ODT) 4 MG ODT by mouth every 8 tabIndications: S/P hours as needed for laparoscopic nausea hysterectomy tiotropium (SPIRIVA) 18 Inhale 1 capsule (18 30 capsule 3 06/06/2022 MCG inhaled mcg) into the lungs capsuleIndications: SOB daily (shortness of breath) documented as of this encounter Plan of Treatment Upcoming Encounters Date Type Specialty Care Team Description 09/26/2022 Appointment Speech Therapy Obdulio Barrera MD [address] [facility] [address] [place], [place] [phone] Anabel Chew, BOX BENDER [place] [id number] [facility] [address] [place], [place] [address] 09/27/2022 Therapy Visit Physical Therapy Luisana Watkins, PT [address] [place] [address] 09/29/2022 Virtual Visit Pain & Palliative Marilia Deluna Care PhD [address] [place] [address] 09/30/2022 Office Visit Family Practice Burton Aydee Mendez, INTERNAL MEDICINE VETERINARY TECHNICIAN AUTOMATIC FOLDER SEAMER [address] [place], [place] [phone] 10/03/2022 Therapy Visit Physical Therapy David-Una Tang, PT [address] [place] [address] 10/10/2022 Hospital Encounter Surgery Lesly Celaya MD [address] [place] [address] 10/10/2022 Office Visit Surgery Lesly Celaya MD [address] [place] [address] Ninoska Flowers PA-Ynes [address] [place] [address] 10/10/2022 Surgery Surgery Lesly Celaya, EXCISION, MASSES - MD back, abdomen, [address] [place] [address] 10/11/2022 Virtual Visit Pharm Clari Stoll, [address] [phone] 10/14/2022 Appointment Speech Therapy Anabel Chew, BOX BENDER [facility] [address] [facility] [address] [place] [address] 10/21/2022 Office Visit Pulmonology Obdulio Barrera MD [address] [facility] [address] [place], [place] [address] 10/25/2022 PRE VISIT ENT Charo Burton MD Previsit [address] [place] [address] 10/25/2022 Office Visit ENT Charo Burton MD [address] [place] [address] 10/25/2022 Office Visit ENT Provider, 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 Manager Internal 10/28/2022 Appointment Speech Therapy Anabel Chew, BOX BENDER [address] [address] 11/17/2022 Appointment Speech Therapy Anabel Chew, BOX BENDER [address] [address] 12/23/2022 Office Visit Neurology Colby Yeung MD [address] [place] [address] Scheduled Procedures Name Priority Associated Diagnoses Date/Time EXCISION, MASS, TORSO Lipoma of skin and subcuta neous 10/10/2022 7:30 AM ELECTRON BEAM WELDER tissue documented as of this encounter Visit Diagnoses Not on filedocumented in this encounter Additional Health Concerns Assessment Noted Time PHQ-9 Depression Total Score: 16 03/25/2022 7:29 AM CD T documented as of this encounter Care Teams Artist'S Representative Relationship Specialty Start Date End Date Aydee Burton, PCP - General Nurse Practitioner - 05/17/21 INTERNAL MEDICINE VETERINARY TECHNICIAN AUTOMATIC FOLDER SEAMER Family [address] [place] [phone] Aydee Burton, Assigned PCP 04/28/21 INTERNAL MEDICINE VETERINARY TECHNICIAN AUTOMATIC FOLDER SEAMER [address] [place] [phone] Louisa Hood, Assigned Neuroscience 07/11/21 INTERNAL MEDICINE VETERINARY TECHNICIAN AUTOMATIC FOLDER SEAMER Provider [address] [place], [place] [address] Se Levy, Lead Multiple Knife Edge Trimmer Operator 08/05/21 05/12/22 Clari Francois Pharmacist Pharmacist 08/06/21 06/07/22 Jocelyn [facility] [address] [place] [address] [place], Assigned Sleep 08/01/21 Angel Turcios, Provider [address] [place] [address] Lesly Celaya MD Assigned Surgical 09/05/21 [address] [facility] [address] Tawana Patel [facility] 09/30/21 Worker Ramses Mcpherson Assigned OBGYN 11/07/21 MD Onesimo Provider [address] [place] [address] Obdulio Barrera MD Critical Care 01/24/[address] [place] [phone] Obdulio Barrera, Tone Pulmonology 02/06/[address] [place] [address] Lesvia Stanley EP Cardiac Rehabilitation 03/03/22 03/03/23 [facility] Therapist [address] [address] Marilia Deluna, PhD Assigned Behavioral 02/20/22 [address] [facility] Provider [place], [place] [phone] Niyah Decker, [facility] Pharmacist Pharmacist 03/07/[address] [address] [place] [address] Clari Poole, Pharmacist Pharmacist 03/07/22 06/15/22 [facility] [address] [facility] [address] [place] [address] Lesvia Stanley EP Cardiac Rehabilitation 03/17/22 03/17/23 [facility] Therapist [address] [place] [place] [phone] Clari Ruiz Assigned [facility] 04/09/22 05/27/22 Jocelyn [facility] Pharmacist [address] [place], [place] [phone] Mago Swift, [facility] Lead Multiple Knife Edge Trimmer Operator Program Management Manager - 08/05/21 Clinical documented as of this encounter
--- OUTSIDE RECORDS SUMMARY | 2022-09-21 04:03 | XMS_ITS | Encounter Summary ---
:1980 Author Organization [place] Address [address] [place] [address] Care Team Providers Name Role Phone Aydee Burton BRICKLAYER APPRENTICE ALLIGATOR SHEAR OPERATOR Primary Care Provider [phone] Aydee Burton APRN ALLIGATOR SHEAR OPERATOR Unavailable [phone] Louisa Hood BRICKLAYER APPRENTICE ALLIGATOR SHEAR OPERATOR Unavailable [phone] Clari Ruiz [facility] Unavailable Angel Hannah MD Unavailable Lesly Celaya MD Unavailable Tawana Patel MA Unavailable Unavailable Ramses Mcpherson MD Unavailable [phone] Obdulio Barrera MD Unavailable [phone] Obdulio Barrera MD Unavailable [phone] Lesvia Stanley Unavailable Marilia Deluna PhD Unavailable Niyah Decker [facility] Unavailable Clrai Poole [facility] Unavailable Lesvia Stanley EP Unavailable JosephDuaneClari Jocelyn [facility] Unavailable Niyah Warner RN Unavailable JamisonMago [facility] Unavailable Reason for Referral Diagnostic Imaging MRI (Routine) - Closed Specialty Diagnoses / Procedures Referred By Contact Refer red To Contact Radiology. Diagnoses Facial pain Raphael Ernst DO Mri Procedures MR Brain w/o & w Contrast [address] [place] [address] [place] [address] Referral ID Status Reason Start Date Expiration Date Visits Requ ested Visits Authorized [id number] Closed 05/19/2022 05/19/2023 1 1 Reason for Visit Reason Comments Neck Pain Encounter Details Date Type Department Care Team Description 05/19/2022 Office Visit [facility] Raphael Ernst DO Facial pain (Primary Clinic [address]) [address] [facility] [place] [address] [place], [place] [phone] (Wo rk) [id number] [phone] Social History Tobacco Use Types Packs/Day Years [...] er 08/05/2021 How often do you attend jain or sabianism services? 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 documented as of this encounter Last Filed Vital Signs Vital Sign Reading Time Taken Comments Blood Pressure 122/74 05/19/2022 9:17 AM CDT Pulse 111 05/19/2022 9:17 AM CDT Temperature 36.3 ??C (97.4 ??F) 05/19/2022 9:17 AM CDT Respiratory Rate 18 05/19/2022 9:17 AM CDT Oxygen Saturation 100% 05/19/2022 9:17 AM CDT Inhaled Oxygen Concentration - - Weight 96.6 kg (213 lb) 05/19/2022 9:17 AM CDT Height 170.2 cm (5' 7) 05/19/2022 9:17 AM CDT Body Mass Index 33.36 05/19/2022 9:17 AM CDT documented in this encounter Patient Instructions Patient InstructionsRaphael Ernst DO - 05/19/2022 9:10 AM CDT [facility] Radiology should be contacting you to schedule your MRI. If they do not contact you, you can call to make an appointment. documented in this encounter Progress Notes Raphael Ernst DO - 05/19/2022 9:10 AM CDT Assessment & Plan Facial pain: Given location of facial pain limited to region of trigeminal nerve along with triggers, consider trigeminal neuralgia. She will try increasing methocarbamol to 1.5 mg TID or 1 mg QID to see if this gives her more relief. She has more fatigue if increasing gabapentin. Will proceed with brain MRI for further evaluation. She also has appointment scheduled with neurology on 06/30/2022. - MR Brain w/o & w Contrast; Future Return in about 8 days (around 05/27/2022) for follow up if symptoms not improving. Raphael Ernst DO [facility] Marta is a 42 year old presenting for the following health issues: Neck Pain History of Present Illness Reason for visit: Face neck and head pain She eats 0-1 servings of fruits and vegetables daily.She consumes 4 sweetened beverage(s) daily.She exercises with enough effort to increase her heart rate 9 or less minutes per day. She exercises withenough effort to increase her heart rate 3 or less days per week. She is taking medications regularly. Today's PHQ-9 PHQ-9 Total Score: 20 PHQ-9 Q9 Thoughts of better off /self-harm past 2 weeks : Not at all Today's SHAMEKA-7 Score: 14 Pain History: When did you first notice your pain? - Acute Pain Have you seen anyone else for your pain? Not recently Where in your body do you have pain? Neck Pain Onset/Duration: long time, but recently gotten worse- last couple of weeks Description: Location: right side- mostly Radiation: into head and into her eye Intensity: moderate Progression of Symptoms: Improving due to taking medication which help alleviates pain but gets worse throughout the day Accompanying Signs & Symptoms: Burning, tingling, prickly sensation in arm(s): No Numbness in arm(s): No Weakness in arm(s): No Fever: No Headache: YES Nausea and/or vomiting: YES- nausea when pain is extreme History: Trauma: YES- fall at work Previous neck pain: YES Previous surgery or injections: YES- its been a while Previous Imaging (MRI,X ray): No Precipitating or alleviating factors: None Does movement impact the pain: YES- if she chew, brushes teeth or talks Therapies tried and outcome: gabapentin, tylenol/ibuprofen/excederin and muscle relaxer's, heat She states she has been feeling this pain for quite a long time (?years). THe pain starts in the right jaw and goes up towards her right jaw. Pain can last all day. Her pain is worse when having to talk or after brushing her teeth. Wearing eyeglasses also causes more pain. Describes the pain as a burni ng/stabbing pain. Has a sister with trigeminal neuralgia. Review of Systems Constitutional, HEENT, cardiovascular, pulmonary, gi and gu systems are negative, except as otherwise noted. Objective BP 122/74 Pulse 111 Temp 97.4 ??F (36.3 ??C) Resp 18 Ht 1.702 m (5' 7) Wt 96.6 kg (213 lb) LMP 12/11/2021 (Exact Date) SpO2 100% BMI 33.36 kg/m?? Body mass index is 33.36 kg/m??. Physical Exam GENERAL: healthy, alert and no distress PSYCH: mentation appears normal, affect normal/bright NEURO: CN II-XII grossly intact . .. documented in this encounter Plan of Treatment Upcoming Encounters Date Type Specialty Care Team Description 09/26/2022 Appointment Speech Therapy Obdulio Barrera MD [address] [facility] 276 [place], [place] [phone] Anabel Chew, INTERNATIONAL FIRST OFFICER [address] [place], [place] [address] 09/27/2022 Therapy Visit Physical Therapy Luisana Watkins, PT 2155 [place] [address] 09/29/2022 Virtual Visit Pain & Palliative Marilia Deluna Care PhD [address] [facility] [place] [address] 09/30/2022 Office Visit Family Practice Aydee Burton, BRICKLAYER APPRENTICE ALLIGATOR SHEAR OPERATOR 4[address] [place], [place] [phone] 10/03/2022 Therapy Visit Physical Therapy David-Una Tang, PT 2[address] [place] [address] 10/10/2022 Hospital Encounter Surgery Lesly Celaya MD [address] [place] [address] 10/10/2022 Office Visit Surgery Lesly Celaya MD [address] [place] [address] Ninoska Flowers PA-Ynes [address] [place] [address] 10/10/2022 Surgery Surgery Lesly Celaya, EXCISION, MASSES - MD back, abdomen, [address] [place] [address] 10/11/2022 Virtual Visit Pharm Clari Stoll, [facility] [address] [phone] [place], [place] [address] 10/14/2022 Appointment Speech Therapy Anabel Chew, INTERNATIONAL FIRST OFFICER [facility] [address] [facility] 396 [place] [address] 10/21/2022 Office Visit Pulmonology Obdulio Barrera MD [address] [facility] 276 [place] [address] 10/25/2022 PRE VISIT ENT Charo Burton MD Previsit 909 [place], [place] [address] 10/25/2022 Office Visit ENT Charo Burton MD [address] [place] [address]87425 10/25/2022 Office Visit ENT Provider, 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 Machinist Supervisor 10/28/2022 Appointment Speech Therapy Anabel Chew, INTERNATIONAL FIRST OFFICER [address] [address] 11/17/2022 Appointment Speech Therapy Anabel Chew INTERNATIONAL FIRST OFFICER [address] [address] 12/23/2022 Office Visit Neurology Colby Yeung MD [address] [place] [id number] Scheduled Procedures Name Priority Associated Diagnoses Date/Time EXCISION, MASS, TORSO Lipoma of skin and subcuta neous 10/10/2022 7:30 AM REAL ESTATE SALESPERSON tissue documented as of this encounter Results MR Brain w/o & [...] microvessel ischemic disease. KG RECINOS MD Raphael Bang Eastonrobyn BHAT IMRubia MRI ORDERABLES documented in this encounter Visit Diagnoses Diagnosis Facial pain - Primary Headache Facial pain Headache Lipoma of skin and subcutaneous tissue Lipoma of other skin and subcutaneous ti ssue documented in this encounter Additional Health Concerns Assessment Noted Time PHQ-9 Depression Total Score: 20 05/19/2022 9:02 AM CD T documented as of this encounter Care Teams Orchard Hand Relationship Specialty Start Date End Date Aydee Burton, PCP - General Nurse Practitioner - 05/17/21 BRICKLAYER APPRENTICE ALLIGATOR SHEAR OPERATOR Family [address] [place] [address] [phone] Aydee Burton, Assigned PCP 04/28/21 BRICKLAYER APPRENTICE ALLIGATOR SHEAR OPERATOR [address] [place] [address] [phone] Louisa Hood, Assigned Neuroscience 07/11/21 BRICKLAYER APPRENTICE ALLIGATOR SHEAR OPERATOR Provider [address] [place], [place] [phone] Clari Ruiz Pharmacist Pharmacist 08/06/21 06/07/22 Jocelyn, [facility] [address] [place], [place] [phone] [place], Assigned Sleep 08/01/21 Angel Turcios, Provider [address] [place], [place] [phone] Lesly Celaya MD Assigned Surgical 09/05/21 [address] [place] [address] Tawana Patel MA [facility] 09/30/21 Worker Ramses Mcpherson Assigned OBGYN 11/07/21 MD Onesimo Provider [address] [place] [address] Obdulio Barrera MD Critical Care 01/24/[address] [place] [address] 276 [place], [place] [address] Obdulio Barrera, Assigned Pulmonology 02/06/22 MD Provider [address] [place] [address] 276 [place], [place] [address] Lesvia Stanley, EP Cardiac Rehabilitation 03/03/22 03/03/23 [facility]OSP Therapist [address] [place] [address] Marilia Deluna, PhD Assigned Behavioral 02/20/22 [address] [facility] [place] [address] Niyah Decker, [facility] Pharmacist Pharmacist 03/07/[address] [place] [address] 812 [place] [address] Clari Poole, Pharmacist Pharmacist 03/07/22 06/15/22 [facility] [address] [facility] [place] [address] Lesvia Stanley, GHADA Cardiac Rehabilitation 03/17/22 03/17/23 [facility] Therapist [address] [id number] Clari Ruiz Assigned MTM 04/09/22 05/27/22 Jocelyn [facility] Pharmacist [address] [place], [place] [address] Niyah Warner, Lead Nuclear Medical Technologist Primary Care - CC 06/27/22 RN Mago Swift, [facility] Lead Nuclear Medical Technologist Accounts Receivable Accountant - 08/05/21 Clinical documented as of this encounter
--- OUTSIDE RECORDS SUMMARY | 2022-09-21 04:03 | XMS_ITS | Encounter Summary ---
:1980 Author Organization [place] Address [address] [place] [address] Care Team Providers Name Role Phone Aydee Burton STEEL POST INSTALLER SUPERVISOR HAND HARDENER Primary Care Provider [phone] Aydee Burton STEEL POST INSTALLER SUPERVISOR HAND HARDENER Unavailable [phone] Louisa Hood STEEL POST INSTALLER SUPERVISOR HAND HARDENER Unavailable [phone] Se Levy [facility] Unavailable Unavailable Clari Ruiz [facility] Unavailable Angel Hannah MD Unavailable Lesly Celaya MD Unavailable Tawana Patel MA Unavailable Unavailable Ramses Mcpherson MD Unavailable [phone] Obdulio Barrera MD Unavailable [phone] Obdulio Barrera MD Unavailable [phone] Lesvia Stanley Unavailable Marilia Deluna PhD Unavailable Niyah Decker [facility] Unavailable Clari Poole [facility] Unavailable Lesvia Stanley EP Unavailable JosephClari [facility] Unavailable [phone] TimmyNiyah RN Unavailable Delia Avila [facility] Unavailable [phone] [place], Delia Leal [facility] Unavailable [phone] SchwNiyah grossman [facility] Unavailable Mago Swift [facility] Unavailable LorireggieNiyah gleason [facility] Unavailable EvertonLeela davis [facility] Unavailable BrianneNiyah Vania [facility] Unavailable Reason for Visit Reason Onset Date Comments Refill Request 05/12/2022 omeprazole (PRILOSEC ) [address] capsule Encounter Details Date Type Department Care Team Description 05/12/2022 Refill [facility] Aydee Burton, Refill Request Clinic [place] STEEL POST INSTALLER SUPERVISOR HANANE (omeprazole (PRILOSEC) [address] [place] [address] capsule ) [place] [address] [place], [place] [phone] (Wo rk) [id number] [phone] Social History Tobacco Use Types Packs/Day Years [...] How often do you attend rastafari or latter day services? 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 documented as of this encounter Miscellaneous Notes Telephone Encounter - Ciara Montejo RN - 05/13/2022 3:35 PM CDT Refill approved per [facility] refill protocol. Ciara Mg RN [facility] Triage documented in this encounter Plan of Treatment Upcoming Encounters Date Type Specialty Care Team Description 09/26/2022 Appointment Speech Therapy Obdulio Barrera MD [address] [facility] 276 [place] [address] Anabel Chew SLP [facility] [address] [facility] 396 [place] [address] 09/27/2022 Therapy Visit Physical Therapy Luisana Watkins, PT [address] [place] [address] 09/29/2022 Virtual Visit Pain & Palliative Marilia Deluna, [facility] PhD [address] [facility] [place] [address] 09/30/2022 Office Visit Family Practice Aydee Burtonlotte, STEEL POST INSTALLER SUPERVISOR HAND HARDENER [address] [place], [place] [address] 10/03/2022 Therapy Visit Physical Therapy Una Reardon, PT [address] [place] [phone] 10/10/2022 Hospital Encounter Surgery Lesly Celaya MD [address] [place], [place] [address] 10/10/2022 Office Visit Surgery Lesly Celaya MD [address] [place], [place] [address] Ninoska Flowers PA-Ynes [address] [facility] 300 [place] [address] 10/10/2022 Surgery Surgery Lesly Celaya, EXCISION, MASSES - MD back, abdomen, [address] right lower [facility] [place] [address] 10/11/2022 Virtual Visit Clari Su, [facility] [address] [phone] [place], [place] [address] 10/14/2022 Appointment Speech Therapy Anabel Chew, MICROFILM PROCESSOR [facility] [address] [facility] 396 [place], [place] [address] 10/21/2022 Office Visit Pulmonology Obdulio Barrera MD [address] [facility] 276 [place] [address] 10/25/2022 PRE VISIT ENT Charo Burton MD Previsit [address] [place] [address] 10/25/2022 Office Visit ENT Charo Burton MD [address] [place] [address] 10/25/2022 Office Visit ENT Provider, Jeannette 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 Supervisor Stone 10/28/2022 Appointment Speech Therapy Anabel Chew, MICROFILM PROCESSOR [address] [address] 11/17/2022 Appointment Speech Therapy Anabel Chew, MICROFILM PROCESSOR [address] [address] 12/23/2022 Office Visit Neurology Colby Yeung MD [address] [place] [address] Scheduled Procedures Name Priority Associated Diagnoses Date/Time EXCISION, MASS, TORSO Lipoma of skin and subcuta neous 10/10/2022 7:30 AM SUPERVISOR REINFORCED STEEL PLACING tissue documented as of this encounter Visit Diagnoses Diagnosis Chronic cough Cough Lipoma of skin and subcutaneous tissue Lipoma of other skin and subcutaneous ti ssue documented in this encounter Additional Health Concerns Assessment Noted Time PHQ-9 Depression Total Score: 16 03/25/2022 7:29 AM CD T documented as of this encounter Care Teams [place] Hydraulic Press Operator Relationship Specialty Start Date End Date Aydee Burton, PCP - General Nurse Practitioner - 05/17/21 STEEL POST INSTALLER SUPERVISOR HAND HARDENER Family [address] [place] [address] Aydee Burton, Assigned PCP 04/28/21 STEEL POST INSTALLER SUPERVISOR HAND HARDENER [address] [place], [place] [phone] Louisa Hood, Assigned Neuroscience 07/11/21 STEEL POST INSTALLER SUPERVISOR HAND HARDENER Provider 500 [place], [place] [address] Se Levy, Lead Software Clerk 08/05/21 05/12/22 SPINNER HANDClari Ordonez Pharmacist Pharmacist 08/06/21 06/07/22 Jocelyn, [facility] [address] [place] [address] [place], Assigned Sleep 08/01/21 Angel Turcios, Provider [address] [place] [address] Lesly Celaya MD Assigned Surgical 09/05/21 [address] [facility] Provider [place], [place] [address] Tawana Patel MA [facility] 09/30/21 Worker Ramses Mcpherson Assigned OBGYN 11/07/21 MD Onesimo Provider [address] [place], [place] [phone] Obdulio Barrera MD Critical Care 01/24/[address] [place] [address] Obdulio Barrera, Tone Pulmonology 02/06/[address] [phone] Lesvia Stanley EP Cardiac Rehabilitation 03/03/22 03/03/23 [facility] Therapist [address] [id number] Marilia Deluna, PhD Assigned Behavioral 02/20/22 [address] [facility] Health Provider [place], [place] [address] Niyah Decker, [facility] Pharmacist Pharmacist 03/07/22 420 [facility] 812 [place] [address] Clari Poole, Pharmacist Pharmacist 03/07/22 06/15/22 [facility] [address] [facility] [address] [place], [place] [phone] Lesvia Stanley EP Cardiac Rehabilitation 03/17/22 03/17/23 [facility] Therapist [address] [facility] [place], [place] [address] Clari Ruiz Assigned MTM 04/09/22 05/27/22 Jocelyn [facility] Pharmacist [address] [place], [place] [phone] Niyah Warner, Lead Software Clerk Primary Care - CC 06/27/22 RN Deila Avila, Pharmacist Pharmacist 06/07/22 [facility] 909 [place] [address] Delia Avila, Assigned MTM 06/11/2206/24 [facility] Pharmacist 9[address] [place], [place] [address] Niyah Decker, [facility] Assigned MTM 05/28/22 06/10/22 420 [facility] 812 [place] [address] Mago Swift, [facility] Lead Software Clerk Disaster Recovery Analyst - 08/05/21 Clinical Niyah Decker, [facility] Assigned MTM 06/25/22 07/29/22 420 [facility] 812 Pharmacist [place], [place] [address] Leela Jarvis RPH Pharmacist 07/26/22 05/15/[address] [facility] [address] [place] [phone] Niyah Decker RP Assigned [facility] 08/10/22 420 [facility] 812 [place] [address] documented as of this encounter
--- OUTSIDE RECORDS SUMMARY | 2022-09-21 04:03 | XMS_ITS | Encounter Summary ---
:1980 Author Organization [place] Address [address] [place] [address] Care Team Providers Name Role Phone Aydee Burton CLUB ROOM ATTENDANT WASTE SPECIALIST Primary Care Provider [phone] Aydee Burton CLUB ROOM ATTENDANT WASTE SPECIALIST Unavailable [phone] Louisa Hood CLUB ROOM ATTENDANT WASTE SPECIALIST Unavailable [phone] Se Levy [facility] Unavailable Unavailable Clari Ruiz [facility] Unavailable Angel Hannah MD Unavailable Lesly Celaya MD Unavailable Tawana Patel MA Unavailable Unavailable Ramses Mcpherson MD Unavailable [phone] Obdulio Barrera MD Unavailable [phone] Obdulio Barrera MD Unavailable [phone] Lesvia Stanley Unavailable Marilia Deluna PhD Unavailable Niyah Decker [facility] Unavailable Clari Poole [facility] Unavailable Lesvia Stanley Unavailable Clari Ruiz [facility] Unavailable [phone] Mago Swift [facility] Unavailable Encounter Details Date Type Department Care Team Description 05/03/2022 Travel Social History Tobacco Use Types Packs/Day [...] How often do you attend denominational or pentecostalism services? Never 08/05/2021 Do you [...] place to sleep or slept in a mcfp (including now)? Sex Assigned at Date Recorded Female 11/09/2021 7:53 PM DADO OPERATOR COVID-19 Exposure Response Date Recorded In the last 10 days, have you been in contact with No / Unsu re 05/03/2022 10:27 AM CDT someone who was confirmed or suspected to have Coronavirus/COVID-19? documented as of this encounter Plan of Treatment Upcoming Encounters Date Type Specialty Care Team Description 09/26/2022 Appointment Speech Therapy Obdulio Barrera MD 420 [facility] 276 [place], [place] [address]275 Anabel Chew, LOCAL TELEPHONE OPERATOR [place] 068386 [facility] 396 [place] [address] 09/27/2022 Therapy Visit Physical Therapy Luisana Watkins, PT [address] [place] [address] 09/29/2022 Virtual Visit Pain & Palliative Marilia Deluna, [facility] PhD [address] [place], [place] [address] 09/30/2022 Office Visit Family Practice Aydee Burton, CLUB ROOM ATTENDANT WASTE SPECIALIST [address] [place] [address] [id number] 10/03/2022 Therapy Visit Physical Therapy Una Reardon, PT [address] [place] [address] 10/10/2022 Hospital Encounter Surgery Lesly Celaya MD [address] [place], [place] [phone] 10/10/2022 Office Visit Surgery Lesly Celaya MD [address] [place] [address] Ninoska Flowers PA-C [address] [facility] 300 [place] [address] 10/10/2022 Surgery Surgery Lesly Celaya, EXCISION, MASSES - MD back, abdomen, [address] right lower [facility] [place] [address] 10/11/2022 Virtual Visit Clari Su, [facility] [address] [place], [place] [address] 10/14/2022 Appointment Speech Therapy Anabel Chew, LOCAL TELEPHONE OPERATOR [address] [address] 10/21/2022 Office Visit Pulmonology Obdulio Barrera MD [address] [address] 10/25/2022 PRE VISIT ENT Charo Burton MD Previsit [address]09 [place], [place] [address] 10/25/2022 Office Visit ENT Charo Burton MD [address] [place], [place] [address] 10/25/2022 Office Visit ENT Provider, 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 Wirer Helper 10/28/2022 Appointment Speech Therapy Anabel Chew, CELINE [address] [address] 11/17/2022 Appointment Speech Therapy Anabel Chew SLP [address] 579245 12/23/2022 Office Visit Neurology Colby Yeung MD [address] [address] Scheduled Procedures Name Priority Associated Diagnoses Date/Time EXCISION, MASS, TORSO Lipoma of skin and subcuta neous 10/10/2022 7:30 AM DADO OPERATOR tissue documented as of this encounter Visit Diagnoses Not on filedocumented in this encounter Additional Health Concerns Assessment Noted Time PHQ-9 Depression Total Score: 16 03/25/2022 7:29 AM CD T documented as of this encounter Care Teams Manager Simulation Relationship Specialty Start Date End Date Aydee Burton, PCP - General Nurse Practitioner - 05/17/21 CLUB ROOM ATTENDANT WASTE SPECIALIST Family [address] [place] [address] Aydee Burton, Assigned PCP 04/28/21 CLUB ROOM ATTENDANT WASTE SPECIALIST [address] [place] [address] Louisa Hood, Assigned Neuroscience 07/11/21 CLUB ROOM ATTENDANT WASTE SPECIALIST Provider 500 [place], [place] [phone] Se Levy, Lead Supervisor Fish Processing 08/05/21 05/12/22 Clari Francois Pharmacist Pharmacist 08/06/21 06/07/22 Jocelyn, [facility] [address] [place] [address] [place], Tone Sleep 08/01/21 Angel Turcios, Provider [address] [place], [place] [address] Lesly Celaya MD Assigned Surgical 09/05/21 [address] [place] [address] Tawana Patel MA [facility] Health 09/30/21 Worker Ramses Mcpherson Assigned OBGYN 11/07/21 MD Onesimo Provider [address] [place] [address] Obdulio Barrera MD Critical Care 01/24/22 420 [facility] 276 [place] [address] Obdulio Barrera, Assigned Pulmonology 02/06/22 MD Provider 420 [facility] 276 [place], [place] [address] Lesvia Stanley, [facility] Cardiac Rehabilitation 03/03/22 03/03/23 [facility] Therapist [address] [place] [address] Marilia Deluna, PhD Assigned Behavioral 02/20/22 [address] [facility] [place] [address] Niyah Decker, [facility] Pharmacist Pharmacist 03/07/22 420 [facility] 812 [place] [address] Clari Poole, Pharmacist Pharmacist 03/07/22 06/15/22 [facility] [address] [place] [address] Lesvia Stanley, [facility] Cardiac Rehabilitation 03/17/22 03/17/23 [facility] Therapist [address] [address] Clari Ruiz Assigned [place] 04/09/22 05/27/22 Jocelyn [facility] Pharmacist [address] [place], [place] [address] Mago Swift, [facility] Lead Supervisor Fish Processing Hair Preparer - 08/05/21 Clinical documented as of this encounter
--- OUTSIDE RECORDS SUMMARY | 2022-09-21 04:03 | XMS_ITS | Encounter Summary ---
:1980 Author Organization [place] Address [address] [place] [address] Care Team Providers Name Role Phone Aydee Burton DIGITAL CARTOGRAPHIC TECHNICIAN EARLY CHILDHOOD TEACHER ASSISTANT Primary Care Provider [phone] Aydee Burton DIGITAL CARTOGRAPHIC TECHNICIAN EARLY CHILDHOOD TEACHER ASSISTANT Unavailable [phone] Louisa Hood DIGITAL CARTOGRAPHIC TECHNICIAN EARLY CHILDHOOD TEACHER ASSISTANT Unavailable [phone] Se Levy [facility] Unavailable Unavailable Clari Ruiz [facility] Unavailable Angel Hannah MD Unavailable Lesly Celaya MD Unavailable Tawana Patel MA Unavailable Unavailable Ramses Mcpherson MD Unavailable [phone] Obdulio Barrera MD Unavailable [phone] Obdulio Barrera MD Unavailable [phone] Lesvia Stanley Unavailable Marilia Deluna PhD Unavailable Niyah Decker [facility] Unavailable Clari Poole [facility] Unavailable Lesvia Stanleyn EP Unavailable Clari Ruiz [facility] Unavailable [phone] TimmyNiyah Vania RN Unavailable JamisonMago Terir [facility] Unavailable Encounter Details Date Type Department Care Team Description 05/11/2022 Virtual Visit [facility] Marilia Deluna Bil ateral occipital neuralgia (Primary Dx); Pain Management PhD Upper back pain; [place] [id number] [place] [address] Chronic tension-type headache, not intra ctable [address] [place], [place] [address] [address] [place] [address] Social History Tobacco Use Types [...] How often do you attend judaism or jainism services? Never 08/05/2021 Do you belong to [...] at Date Recorded Female 11/09/2021 7:53 PM CONTROL SYSTEMS DRAFTING OFFICER COVID-19 Exposure Response Date Recorded In the last 10 days, have you been in contact with No / Unsu re 05/03/2022 10:27 AM CDT someone who was confirmed or suspected to have Coronavirus/COVID-19? documented as of this encounter Progress Notes Marilia Deluna - 05/11/2022 8:00 AM CDT Marta [place] is a [...] invitation sent by: Text to cell phone: .[phone]} Video Start Time: 8:01 AM Additional provider notes: Pain Diagnoses per pain provider: Bilateral occipital neuralgia ?? Upper back pain ?? Chronic tension-type headache, not intractable? 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 Your mood is still angry - primary trigger is co-parenting with ex-.Your activity level is fairly stable, feel your chest hurts more and you are coughing more, busy at new position. Your stress level is variable - primary trigger tends to be relationship, 15 year old 'tends to try to irritate other children'. 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 You reported engaging in self-care for your pain 1-2 times daily. 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 She has since started a new job, despite not receiving specific clearance that she had been waiting on to returnto [employer]; she reports her new shift has been difficult to adjust to and as a result, she is sleeping poorly. She struggled to stay awake for today's visit, starting out laying in bed however was amenable to sitting up for visit. We discussed importance of following up with pain provider regularly, and that she is overdue for a follow up. It is likely that her poor sleep and increased activity related to work has negatively impacted her pain. Ended appointment early as patient was struggling tokeep her eyes open due to fatigue. PLAN: Your next appointment is scheduled for 06/06 at 3:00 PM. Assignment/Objectives /interventions for next session: - schedule follow up with Madalyn Ponce MD - this is overdue [phone] - try to increase self-cares throughout the day - do not wait until end of work shift or until pain is high We believe regular attendance is miranda to your success in our program! ?? Any time you are unable to keep your appointment we ask that you call us at [phone] at least24 hours in advance to cancel.This will allow us to offer the appointment time to another patient. ?? Multiple missed appointments may lead to dismissal from the clinic. Video-Visit Details Type of service: Video Visit Video End Time (time video stopped): 8:24 AM Originating Location (pt. Location): Home Distant Location (provider location): [facility] Mode of Communication: Video Conference via Claude Deluna PsyD LP Licensed Psychologist Outpatient Clinic Therapist [facility] Pain Management documented in this encounter Plan of Treatment Upcoming Encounters Date Type Specialty Care Team Description 09/26/2022 Appointment Speech Therapy Obdulio Barrera MD 420 [facility] 276 [place], [place] [address] Anabel Chew, CANAL BOAT OPERATOR [facility] 516 [facility] 396 [place] [address] 09/27/2022 Therapy Visit Physical Therapy Luisana Watkins, PT [address] [place] [address] 09/29/2022 Virtual Visit Pain & Palliative Marilia eDluna, Care PhD [address] [place] [address] 09/30/2022 Office Visit Family Practice Aydee Burton, DIGITAL CARTOGRAPHIC TECHNICIAN EARLY CHILDHOOD TEACHER ASSISTANT [address] [place], [place] [phone] 10/03/2022 Therapy Visit Physical Therapy Una Reardon, PT [address] [place] [phone] 10/10/2022 Hospital Encounter Surgery Lesly Celaya MD [address] [place], [place] [address] 10/10/2022 Office Visit Surgery Lesly Celaya MD [address] [place], [place] [address] Ninoska Flowers PA-Ynes [address] [facility] 300 [place] [address] 10/10/2022 Surgery Surgery Lesly Celaya, EXCISION, MASSES - MD back, abdomen, [address] right lower [facility] extremity [place], [place] [phone] 10/11/2022 Virtual Visit Clari Su, [facility] [address] [place] [address] 10/14/2022 Appointment Speech Therapy Anabel Chew, CANAL BOAT OPERATOR [address] [address] 10/21/2022 Office Visit Pulmonology Obdulio Barrera MD 420 [facility] [address] [place], [place] [address] 10/25/2022 PRE VISIT ENT Charo Burton MD Previsit [address] [place] [address] 10/25/2022 Office Visit ENT Charo Burton MD 909 [place], [place] [address] 10/25/2022 Office Visit ENT Provider, 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 Latent Fingerprint Examiner 10/28/2022 Appointment Speech Therapy Anabel Chew, CANAL BOAT OPERATOR [address] [address] 11/17/2022 Appointment Speech Therapy Anabel Chew, CANAL BOAT OPERATOR [address] [address] 12/23/2022 Office Visit Neurology Colby Yeung MD [address] [address] Scheduled Procedures Name Priority Associated Diagnoses Date/Time EXCISION, MASS, TORSO Lipoma of skin and subcuta neous 10/10/2022 7:30 AM CONTROL SYSTEMS DRAFTING OFFICER tissue documented as of this encounter Procedures Procedure Name Priority Date/Time Associated Diagnosis Comme nts [place] [facility] Routine 05/11/2022 8:28 AM CDT Bilateral oc cipital INTERVENTION, neuralgia INDIVIDUAL, [...] as of this encounter Care Teams Irrigation Tax Assessor Collector Relationship Specialty Start Date End Date Aydee Burton, PCP - General Nurse Practitioner - 05/17/21 DIGITAL CARTOGRAPHIC TECHNICIAN EARLY CHILDHOOD TEACHER ASSISTANT Family [address] [place] [phone] Aydee Burton, Assigned PCP 04/28/21 DIGITAL CARTOGRAPHIC TECHNICIAN EARLY CHILDHOOD TEACHER ASSISTANT [address] [place] [phone] Louisa Hood, Assigned Neuroscience 07/11/21 DIGITAL CARTOGRAPHIC TECHNICIAN EARLY CHILDHOOD TEACHER ASSISTANT Provider [address] [place] [phone] Se Levy, Lead Entry Level Manager 08/05/21 05/12/22 PHARMACY TECH CUSTOMER SERVICEClari Ordonez Pharmacist Pharmacist 08/06/21 06/07/22 Jocelyn [facility] [address] [place], [place] [phone] [place], Assigned Sleep 08/01/21 Angel Turcios, Provider [address] [place] [address] Lesly Celaya MD Assigned Surgical 09/05/21 [address] Provider [place], [place] [phone] Tawana Patel MA [facility] 09/30/21 Worker Ramses Mcpherson Assigned OBGYN 11/07/21 MD Onesimo Provider [address] [place], [place] [phone] Obdulio Barrera MD Critical Care 01/24/22 MD 420 [facility] [address] [place], [place] [address] Obdulio Barrera, Assigned Pulmonology 02/06/22 Provider 420 [facility] [address] [place], [place] [address] Lesvia Stanley, GHADA Cardiac Rehabilitation 03/03/22 03/03/23 [facility] Therapist [address] [place] [address] Marilia Deluna, PhD Assigned Behavioral 02/20/22 [address] [facility] [place] [address] Niyah Decker, [facility] Pharmacist Pharmacist 03/07/22 420 [facility] 812 [place], [place] [address] Clari Poole, Pharmacist Pharmacist 03/07/22 06/15/22 [facility] [address] [facility] [address] [place] [phone] Lesvia Stanley, GHADA Cardiac Rehabilitation 03/17/22 03/17/23 [facility] Therapist [address] [address] Clari Ruiz Assigned MTM 04/09/22 05/27/22 Jocelyn [facility] Pharmacist [address] [place], [place] [address] Niyah Warner, Lead Entry Level Manager Primary Care - CC 06/27/22 RN Mago Swift [facility] Lead Entry Level Manager Center Administrator - 08/05/21 Clinical documented as of this encounter
--- OUTSIDE RECORDS SUMMARY | 2022-09-21 04:03 | XMS_ITS | Encounter Summary ---
:1980 Author Organization [place] Address [address] [place] [address] Care Team Providers Name Role Phone Aydee Burton SONG AND DANCE PERFORMER WASHER BLANKET Primary Care Provider [phone] Aydee Burton SONG AND DANCE PERFORMER WASHER BLANKET Unavailable [phone] Louisa Hood SONG AND DANCE PERFORMER WASHER BLANKET Unavailable [phone] Se Levy [facility] Unavailable Unavailable Clari Ruiz [facility] Unavailable Angel Hannah MD Unavailable Lesly Celaya MD Unavailable Tawana Patel MA Unavailable Unavailable Ramses Mcpherson MD Unavailable [phone] Obdulio Barrera MD Unavailable [phone] Obdulio Barrera MD Unavailable Lesvia Stanley Unavailable Marilia Deluna PhD Unavailable Niyah Decker [facility] Unavailable Clari Poole [facility] Unavailable Lesvia Stanley Unavailable JosephClari jay [facility] Unavailable [phone] Mago Swift [facility] Unavailable Reason for Visit Reason Onset Date Comments Transfer Note 04/21/2022 Encounter Details Date Type Department Care Team Description 04/21/2022 Telephone [facility] Lucas Grigsby [place] [address] [address] [facility] [address] [place] [address] [place], [place] [phone] Social History Tobacco Use Types Packs/Day Years [...] er 08/05/2021 How often do you attend jewish or restoration services? Never 08/05/2021 Do you belong to any clubs or organizations such as jewish N o 08/05/2021 groups, unions, fraternal or [...] at Date Recorded Female 11/09/2021 7:53 PM ICE SELLER COVID-19 Exposure Response Date Recorded In the last 10 days, have you been in contact with No / Unsu re 04/20/2022 9:12 AM CDT someone who was confirmed or suspected to have Coronavirus/COVID-19? documented as of this encounter Miscellaneous Notes Telephone Encounter - Shireen Corbin RN - 04/21/2022 9:21 AM CDT Transfer plan: Pt to follow up with Dr Kris HDEZ, RN Checker Loader [facility] Pain Management documented in this encounter Plan of Treatment Upcoming Encounters Date Type Specialty Care Team Description 09/26/2022 Appointment Speech Therapy Obdulio Barrera MD 420 [facility] 276 [place], [place] [address] Anabel Chew, WELLNESS SPA MANAGER [facility] 516 [facility] 396 [place], [place] [address] 09/27/2022 Therapy Visit Physical Therapy Luisana Watkins, PT 2[address] [place] [address] 09/29/2022 Virtual Visit Pain & Palliative Marilia Deluna, [facility] PhD [address] [place] [address] 09/30/2022 Office Visit Family Practice Aydee Burton, SONG AND DANCE PERFORMER WASHER BLANKET [address] [place], [place] [phone] 10/03/2022 Therapy Visit Physical Therapy Una Reardon, PT [address] [place] [phone] 10/10/2022 Hospital Encounter Surgery Lesly Celaya MD [address] [place], [place] [address] 10/10/2022 Office Visit Surgery Lesly Celaya MD [address] [place], [place] [address] Ninoska Flowers PA-C [address] [place], [place] [phone] 10/10/2022 Surgery Surgery Lesly Celaya, EXCISION, MASSES - MD back, abdomen, [address] extremity [place], [place] [phone] 10/11/2022 Virtual Visit Pharm Clari Stoll, [address] [address] 10/14/2022 Appointment Speech Therapy Anabel Chew, WELLNESS SPA MANAGER [address] [place], [place] [address] 10/21/2022 Office Visit Pulmonology Obdulio Barrera MD 420 [facility] 276 [place], [place] [address] 10/25/2022 PRE VISIT ENT Charo Burton MD Previsit [address] [place] [address] 10/25/2022 Office Visit Charo Carter MD [address] [place] [address] 10/25/2022 Office Visit ENT Provider, 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 Residential Team Leader 10/28/2022 Appointment Speech Therapy Anabel Chew, WELLNESS SPA MANAGER [address] [place] [address] 11/17/2022 Appointment Speech Therapy Anabel Chew, WELLNESS SPA MANAGER [address] [address] 12/23/2022 Office Visit Neurology Colby Yeung MD [address] [place] [address] Scheduled Procedures Name Priority Associated Diagnoses Date/Time EXCISION, MASS, TORSO Lipoma of skin and subcuta neous 10/10/2022 7:30 AM ICE SELLER tissue documented as of this encounter Visit Diagnoses Not on filedocumented in this encounter Additional Health Concerns Assessment Noted Time PHQ-9 Depression Total Score: 16 03/25/2022 7:29 AM CD T documented as of this encounter Care Teams Microbiological Lab Technician Relationship Specialty Start Date End Date Aydee Burton, PCP - General Nurse Practitioner - 05/17/21 SONG AND DANCE PERFORMER WASHER BLANKET Family [address] [place], [place] [phone] Aydee Burton, Assigned PCP 04/28/21 SONG AND DANCE PERFORMER WASHER BLANKET [address] [place], [place] [address] Louisa Hood, Assigned Neuroscience 07/11/21 SONG AND DANCE PERFORMER WASHER BLANKET Provider [address], [place] [address] Se Levy, Lead Checker Loader 08/05/21 05/12/22 Clari Francois Pharmacist Pharmacist 08/06/21 06/07/22 Jocelyn [facility] [address] [facility] [address] [place], [place] [address] [place], Assigned Sleep 08/01/21 Angel Turcios, Provider [address] [place], [place] [address] Lesly Celaya MD Assigned Surgical 09/05/21 [address] [facility] [place] [address] Tawana Patel MA [facility] 09/30/21 Worker Ramses Mcpherson Assigned OBGYN 11/07/21 MD Onesimo Provider [address] [place], [place] [address] Obdulio Barrera MD Critical Care 01/24/[address] [place] [address] 276 [place], [place] [address] Obdulio Barrera, Assigned Pulmonology 02/06/[address] [place] [address] 276 [place], [place] [address] Lesvia Stanley, GHADA Cardiac Rehabilitation 03/03/22 03/03/23 [facility] Therapist [address] [place] [address] Marilia Deluna, PhD Assigned Behavioral 02/20/22 [address] [facility] Provider [place], [place] [address] Niyah Decker, [facility] Pharmacist Pharmacist 03/07/22 420 [facility] 812 [place], [place] [phone] Clari Poole, Pharmacist Pharmacist 03/07/22 06/15/22 [facility] [address] [address] [address] [place] [phone] Lesvia Stanley, GHADA Cardiac Rehabilitation 03/17/22 03/17/23 [facility] Therapist [address] [place] [address] Clari Ruiz Assigned MTM 04/09/22 05/27/22 Jocelyn [facility] Pharmacist [address] [place], [place] [address] Mago Swift, [facility] Lead Checker Loader Warehouse General Laborer - 08/05/21 Clinical documented as of this encounter
--- OUTSIDE RECORDS SUMMARY | 2022-09-21 04:03 | XMS_ITS | Encounter Summary ---
:1980 Author Organization [facility] Address [address] [place] [address] Care Team Providers Name Role Phone Aydee Burton MANAGER COST BOWLING ALLEY REFINISHER Primary Care Provider [phone] Aydee Burton MANAGER COST BOWLING ALLEY REFINISHER Unavailable [phone] Louisa Hood MANAGER COST BOWLING ALLEY REFINISHER Unavailable [phone] Se Levy [facility] Unavailable Unavailable Clari Ruiz [facility] Unavailable [phone] Angel Hannah MD Unavailable Lesly Celaya MD Unavailable Tawana Patel MA Unavailable Unavailable Ramses Mcpherson MD Unavailable [phone] Obdulio Barrera MD Unavailable [phone] Obdulio Barrera MD Unavailable [phone] Lesvia Stanley Unavailable Marilia Deluna PhD Unavailable Niyah Decker [facility] Unavailable Clari Poole [facility] Unavailable Lesvia Stanley Unavailable Clari Ruiz [facility] Unavailable [phone] Mago Swift [facility] Unavailable Encounter Details Date Type Department Care Team Description 04/26/2022 Travel Social History Tobacco Use Types Packs/Day [...] How often do you attend mormon or presybeterian services? Never 08/05/2021 Do you belong to [...] at Date Recorded Female 11/09/2021 7:53 PM IRRIGATION SERVICE TECHNICIAN COVID-19 Exposure Response Date Recorded [...] MD 420 [facility] 276 [place], [place] [address] Anabel Chew, MARKETING PERFORMANCE ANALYST [place] [id number] [facility] 396 [place] [address] 09/27/2022 Therapy Visit Physical Therapy Luisana Watkins, PT [address] [place] [address] 09/29/2022 Virtual Visit Pain & Palliative Marilia Deluna, [facility] PhD [address] [place], [place] [address] 09/30/2022 Office Visit Family Practice Aydee Burton, MANAGER COST BOWLING ALLEY REFINISHER [address] [place] [address] [id number] 10/03/2022 Therapy Visit Physical Therapy Una Reardon, PT [address] [place] [address] 10/10/2022 Hospital Encounter Surgery Lesly Celaya MD [address] [place], [place] [phone] 10/10/2022 Office Visit Surgery Lesly Celaya MD [address] [place] [address] Ninoska Flowers PA-C [address] [facility] 300 [place] [address] 10/10/2022 Surgery Surgery Lesly Celaya, EXCISION, MASSES - MD back, abdomen, [address] right lower [facility] [place] [address] 10/11/2022 Virtual Visit Clari Su, [facility] [address] [place], [place] [address] 10/14/2022 Appointment Speech Therapy Anabel Chew, MARKETING PERFORMANCE ANALYST [address] [address]27[address] 10/21/2022 Office Visit Pulmonology Obdulio Barrera MD [address] 932695 10/25/2022 PRE VISIT ENT Charo Burton MD Previsit 909 [place], [place] [address] 10/25/2022 Office Visit ENT Charo Burton MD [address] [place], [place] [address]365 10/25/2022 Office Visit ENT Provider, 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 Lead Sustainability Specialist 10/28/2022 Appointment Speech Therapy Anabel Chew, CELINE [address] 864245 11/17/2022 Appointment Speech Therapy Anabel Chew SLP [address] 922[address] 12/23/2022 Office Visit Neurology Colby Yeung MD [address] [address]68[address] Scheduled Procedures Name Priority Associated Diagnoses Date/Time EXCISION, MASS, TORSO Lipoma of skin and subcuta neous 10/10/2022 7:30 AM IRRIGATION SERVICE TECHNICIAN tissue documented as of this encounter Visit Diagnoses Not on filedocumented in this encounter Additional Health Concerns Assessment Noted Time PHQ-9 Depression Total Score: 16 03/25/2022 7:29 AM CD T documented as of this encounter Care Teams Job Training Specialist Relationship Specialty Start Date End Date Aydee Burton, PCP - General Nurse Practitioner - 05/17/21 MANAGER COST BOWLING ALLEY REFINISHER Family [address] [place] [address] Aydee Burton, Assigned PCP 04/28/21 MANAGER COST BOWLING ALLEY REFINISHER [address] [place] [address] Louisa Hood, Assigned Neuroscience 07/11/21 MANAGER COST BOWLING ALLEY REFINISHER Provider 500 [place], [place] [phone] Se Levy, Lead Chief I Dispatcher 08/05/21 05/12/22 Clari Francois Pharmacist Pharmacist 08/06/21 06/07/22 Jocelyn, [facility] [address] [place] [address] [place], Tone Sleep 08/01/21 Angel Turcios, Provider [address] [place], [place] [address] Lesly Celaya MD Assigned Surgical 09/05/21 [address] [place] [address] Tawana Patel MA [facility] 09/30/21 Worker Ramses Mcpherson Assigned OBGYN 11/07/21 MD Onesimo Provider [address] [place] [address] Obdulio Barrera MD Critical Care 01/24/22 420 [facility] [address] [place] [address] Obdulio Barrera, Assigned Pulmonology 02/06/22 MD Provider 420 [facility] 276 [place], [place] [address] Lesvia Stanley, GHADA Cardiac Rehabilitation 03/03/22 03/03/23 [facility] Therapist [address] [place] [address] Marilia Deluna, PhD Assigned Behavioral 02/20/22 [address] [facility] [place] [address] Niyah Decker, [facility] Pharmacist Pharmacist 03/07/22 420 [facility] 812 [place] [address] Clari Poole, Pharmacist Pharmacist 03/07/22 06/15/22 [facility] [address] [facility] [place] [address] Lesvia Stanley, GHADA Cardiac Rehabilitation 03/17/22 03/17/23 [facility] Therapist [address] [address] Clari Ruiz Assigned MT 04/09/22 05/27/22 Jocelyn [facility] Pharmacist [address] [place], [place] [address] Mago Swift, [facility] Lead Chief I Dispatcher Tube Drawing Supervisor - 08/05/21 Clinical documented as of this encounter
--- OUTSIDE RECORDS SUMMARY | 2022-09-21 04:03 | XMS_ITS | Encounter Summary ---
:1980 Author Organization [facility] Address [address] [place] [address] Care Team Providers Name Role Phone Aydee Burton BULK SEALER FLIGHT OPERATIONS INSPECTOR Primary Care Provider [phone] Aydee Burton BULK SEALER FLIGHT OPERATIONS INSPECTOR Unavailable [phone] Louisa Hood BULK SEALER FLIGHT OPERATIONS INSPECTOR Unavailable [phone] Se Levy [facility] Unavailable Unavailable Clari Ruiz [facility] Unavailable Angel Hannah MD Unavailable Lesly Celaya MD Unavailable Tawana Patel MA Unavailable Unavailable Ramses Mcpherson MD Unavailable [phone] Obdulio Barrera MD Unavailable [phone] Obdulio Barrera MD Unavailable [phone] Lesvia Stanley Unavailable Marilia Deluna PhD Unavailable Niyah Decker [facility] Unavailable Clari Poole [facility] Unavailable Lesvia Stanley Unavailable JosephClari jay [facility] Unavailable [phone] Mago Swift [facility] Unavailable Reason for Visit Rehab Therapy Cardiac Therapy (Routine: Next available opening) - Authorized Specialty Diagnoses / Procedures Referred By Contact Refer red To Contact CARDIAC REHAB Diagnoses Asthma SOB (shortness of breath) [place] [id number] [facility] [address] Phone: Referral ID Status Reason Start Date Expiration Date Visits V isits Requested Authorized [id number] Authorized 11/13/2021 11/12/2022 365 365 Encounter Details Date Type Department Care Team Description 05/03/2022 Hospital Encounter [facility] Ezequiel Barrera MD 420 [facility] 276 [place] [address] Cardiac and Pulmonary 1, Rh Pulmonary Rehab Rehabilitation [address] [place] [address] Social History Tobacco Use Types [...] How often do you attend restorationism or zoroastrian services? 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 gabapentin (NEURONTIN) Take 1 capsule (400 120 capsule 0 05/19/2022 400 MG mg) by mouth 4 times capsuleIndications: daily Neuropathic pain ibuprofen TAKE 1 TABLET BY 0 03/26/2022 05/14/20 22 (ADVIL/MOTRIN) 800 MG MOUTH EVERY 8 HOURS tablet FOR PAIN methocarbamol Take 1-1.5 tablets 90 tablet 1 01/12/202212/2021 (ROBAXIN) 500 MG (500-750 mg) by mouth tabletIndications: 3 times daily as Chronic myofascial needed for muscle pain, Trigger point of spasms shoulder region, unspecified laterality montelukast Take 1 tablet (10 mg) 30 [...] Barrera MD 420 [facility] 276 [place], [place] [address] Anabel Chew, MASSAGE THERAPY INSTRUCTOR [address] [place], [place] [address] 09/27/2022 Therapy Visit Physical Therapy Luisana Watkins, PT [address] [place] [address] 09/29/2022 Virtual Visit Pain & Palliative Marilia Deluna, Care PhD [address] [place] [address] 09/30/2022 Office Visit Family Practice Aydee Burton, BULK SEALER FLIGHT OPERATIONS INSPECTOR [address] [place], [place] [phone] 10/03/2022 Therapy Visit Physical Therapy Una Reardon, PT [address] [place] [address] 10/10/2022 Hospital Encounter Surgery Lesly Celaya MD [address] [place] [address] 10/10/2022 Office Visit Surgery Lesly Celaya MD [address] [place] [address] Ninoska Flowers, PA-C [address] [place], [place] [phone] 10/10/2022 Surgery Surgery Lesly Celaya, EXCISION, MASSES - MD back, abdomen, [address] extremity [place], [place] [phone] 10/11/2022 Virtual Visit Clari Su, [facility] [address] [place] [id number] [place], [place] [address] 10/14/2022 Appointment Speech Therapy Aanbel Chew, MASSAGE THERAPY INSTRUCTOR [facility] 516 [facility] 396 [place] [address] 10/21/2022 Office Visit Pulmonology Obdulio Barrera MD 420 [facility] 276 [place] [address] 10/25/2022 PRE VISIT ENT Charo Burton MD Previsit 909 [place], [place] [address] 10/25/2022 Office Visit ENT Charo Burton MD 9[address] [place] [address] 10/25/2022 Office Visit ENT Provider, 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 Freight Car Cleaner 10/28/2022 Appointment Speech Therapy Anabel Chew, MASSAGE THERAPY INSTRUCTOR [address] [address] 11/17/2022 Appointment Speech Therapy Anabel Chew, MASSAGE THERAPY INSTRUCTOR [address] [address] 12/23/2022 Office Visit Neurology Colby Yeung MD [address] [place] [address] Scheduled Procedures Name Priority Associated Diagnoses Date/Time EXCISION, MASS, TORSO Lipoma of skin and subcuta neous 10/10/2022 7:30 AM DEVELOPMENTAL BEHAVIORAL PHYSICIAN tissue documented as of this encounter Visit Diagnoses Not on filedocumented in this encounter Additional Health Concerns Assessment Noted Time PHQ-9 Depression Total Score: 16 03/25/2022 7:29 AM CD T documented as of this encounter Care Teams Classification Clerk Relationship Specialty Start Date End Date Aydee Burton, PCP - General Nurse Practitioner - 05/17/21 BULK SEALER FLIGHT OPERATIONS INSPECTOR Family [address] [place] [address] Aydee Burton, Assigned PCP 04/28/21 BULK SEALER FLIGHT OPERATIONS INSPECTOR [address] [place], [place] [phone] Louisa Hood, Assigned Neuroscience 07/11/21 BULK SEALER FLIGHT OPERATIONS INSPECTOR Provider 500 [place] [address] Se Levy, Lead Game Room Attendant 08/05/21 05/12/22 STORAGE CONSULTANTClari Ordonez Pharmacist Pharmacist 08/06/21 06/07/22 Jocelyn, [facility] [address] [place] [address] [place], Assigned Sleep 08/01/21 Angel Turcios, Provider [address] [place] [address] Lesly Celaya MD Assigned Surgical 09/05/21 [address] [facility] [place] [address] Tawana Patel MA [facility] 09/30/21 Worker Ramses Mcpherson Assigned OBGYN 11/07/21 MD Onesimo Provider [address] [place] [address] Obdulio Barrera MD Critical Care 01/24/[address] [place] [address] Obdulio Barrera, Assigned Pulmonology 02/06/[address] [place] [address] [id number] Lesvia Stanley EP Cardiac Rehabilitation 03/03/22 03/03/23 [facility] Therapist [address] [place] [address] Marilia Deluna, PhD Assigned Behavioral 02/20/22 [address] [facility] Provider [place], [place] [phone] Niyah Decker, [facility] Pharmacist Pharmacist 03/07/22 [address] [facility] 812 [place] [address] Clari Poole, Pharmacist Pharmacist 03/07/22 06/15/22 [facility] [address] [place] [address] Lesvia Stanley EP Cardiac Rehabilitation 03/17/22 03/17/23 [facility] Therapist [address] [place] [address] Clari Ruiz Assigned MTM 04/09/22 05/27/22 Jocelyn [facility] Pharmacist [address] [place], [place] [address] Mago Swift [facility] Lead Game Room Attendant Journeyman Powerhouse Operator - 08/05/21 Clinical documented as of this encounter
--- OUTSIDE RECORDS SUMMARY | 2022-09-21 04:03 | XMS_ITS | Encounter Summary ---
:1980 Author Organization [place] Address [address] [place] [address] Care Team Providers Name Role Phone Aydee Burton CEMENT CAR DUMPER OCCUPATIONAL THERAPIST ASSISTANT Primary Care Provider [phone] Aydee Burton CEMENT CAR DUMPER OCCUPATIONAL THERAPIST ASSISTANT Unavailable [phone] Louisa Hood CEMENT CAR DUMPER OCCUPATIONAL THERAPIST ASSISTANT Unavailable [phone] Se Levy [facility] Unavailable Unavailable Clari Ruiz [facility] Unavailable Angel Hannah MD Unavailable Lesly Celaya MD Unavailable Tawana Patel MA Unavailable Unavailable Ramses Mcpherson MD Unavailable [phone] Obdulio Barrera MD Unavailable [phone] Obdulio Barrera MD Unavailable [phone] Lesvia Stanley Unavailable Marilia Deluna PhD Unavailable Niyah Decker [facility] Unavailable Clari Poole [facility] Unavailable Lesvia Stanley Unavailable Clari Ruiz [facility] Unavailable Mago Swift [facility] Unavailable Encounter Details Date Type Department Care Team Description 04/20/2022 Travel Social History Tobacco Use Types Packs/Day [...] How often do you attend holiness or adventism services? Never 08/05/2021 Do you belong to [...] at Date Recorded Female 11/09/2021 7:53 PM [employer] COVID-19 Exposure Response Date Recorded In the last 10 days, have you been in contact with No / Unsu re 04/20/2022 9:12 AM CDT someone who was confirmed or suspected to have Coronavirus/COVID-19? documented as of this encounter Plan of Treatment Upcoming Encounters Date Type Specialty Care Team Description 09/26/2022 Appointment Speech Therapy Obdulio Barrera MD 420 [facility] 276 [place], [place] [address] Anabel Chew, DETENTION SERGEANT [place] 0685[address] [facility] 396 [place] [address] 09/27/2022 Therapy Visit Physical Therapy Luisana Watkins, PT [address] [place] [address] 09/29/2022 Virtual Visit Pain & Palliative Marilia Deluna, [facility] PhD [address] [place], [place] [address] 09/30/2022 Office Visit Family Practice Aydee Burton, CEMENT CAR DUMPER OCCUPATIONAL THERAPIST ASSISTANT [address] [place] [phone] 10/03/2022 Therapy Visit Physical Therapy Uan Reardon, PT [address] [place] [address] 10/10/2022 Hospital Encounter Surgery Lesly Celaya MD [address] [place], [place] [address] 10/10/2022 Office Visit Surgery Lesly Celaya MD [address] [place] [address] Ninoska Flowers PA-C [address] [facility] [address] [place] [address] 10/10/2022 Surgery Surgery Lesly Celaya, EXCISION, MASSES - MD back, abdomen, [address] right lower [facility] [address] 10/11/2022 Virtual Visit Clari Su, [facility] [address] [place], [place] [address] 10/14/2022 Appointment Speech Therapy Anabel Chew, DETENTION SERGEANT [address] 644[address] 10/21/2022 Office Visit Pulmonology Obdulio Barrera MD [address] [address] 10/25/2022 PRE VISIT ENT Charo Burton MD Previsit 909 [place], [place] [address] 10/25/2022 Office Visit ENT Charo Burton MD [address] [place], [place] [address] 10/25/2022 Office Visit ENT Provider, 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 Manual Arts Therapist 10/28/2022 Appointment Speech Therapy Anabel Chew, CELINE [address] 2365[address] 11/17/2022 Appointment Speech Therapy Anabel Chew SLP [address] 732425 12/23/2022 Office Visit Neurology Colby Yeung MD [address] [address] Scheduled Procedures Name Priority Associated Diagnoses Date/Time EXCISION, MASS, TORSO Lipoma of skin and subcuta neous 10/10/2022 7:30 AM [employer] tissue documented as of this encounter Visit Diagnoses Not on filedocumented in this encounter Additional Health Concerns Assessment Noted Time PHQ-9 Depression Total Score: 16 03/25/2022 7:29 AM CD T documented as of this encounter Care Teams Brick Kiln Burner Relationship Specialty Start Date End Date Aydee Burton, PCP - General Nurse Practitioner - 05/17/21 CEMENT CAR DUMPER OCCUPATIONAL THERAPIST ASSISTANT Family [address] [place] [address] Aydee Burton, Assigned PCP 04/28/21 CEMENT CAR DUMPER OCCUPATIONAL THERAPIST ASSISTANT [address] [place] [address] Louisa Hood, Assigned Neuroscience 07/11/21 CEMENT CAR DUMPER OCCUPATIONAL THERAPIST ASSISTANT Provider 500 [place], [place] [phone] Se Levy, Lead Nickel Plant Operator 08/05/21 05/12/22 Clari Francois Pharmacist Pharmacist 08/06/21 06/07/22 Jocelyn, [facility] [address] [place] [address] [place], Tone Sleep 08/01/21 Angel Turcios, Provider [address] [place], [place] [address] Lesly Celaya MD Assigned Surgical 09/05/21 [address] [place] [address] Tawana Patel MA [facility] 09/30/21 Worker Ramses Mcpherson Assigned OBGYN 11/07/21 MD Onesimo Provider [address] [place] [address] Obdulio Barrera MD Critical Care 01/24/22 420 [facility] [address] [place] [address] Obdulio Barrera, Assigned Pulmonology 02/06/22 MD Provider 420 [facility] [address] [place], [place] [address] Lesvia Stanley, GHADA Cardiac Rehabilitation 03/03/22 03/03/23 [facility] Therapist [address] [place] [address] Marilia Deluna, PhD Assigned Behavioral 02/20/22 [address] [facility] [place] [address] Niyah Decker, [facility] Pharmacist Pharmacist 03/07/22 420 [facility] 812 [place] [address] Clari Poole, Pharmacist Pharmacist 03/07/22 06/15/22 [facility] [address] [place] [address] Lesvia Stanley, GHADA Cardiac Rehabilitation 03/17/22 03/17/23 [facility] Therapist [address] [address] Clari Ruiz Assigned MT 04/09/22 05/27/22 Jocelyn [facility] Pharmacist [address] [place], [place] [address] Mago Swift, [facility] Lead Nickel Plant Operator Supervisor Telephone Information - 08/05/21 Clinical documented as of this encounter
--- OUTSIDE RECORDS SUMMARY | 2022-09-21 04:03 | XMS_ITS | Encounter Summary ---
:1980 Author Organization [place] Address [address] [place] [address] Care Team Providers Name Role Phone Aydee Burton TRANSPORT ENGINEER CISO Primary Care Provider [phone] Aydee Burton TRANSPORT ENGINEER CISO Unavailable [phone] Louisa Hood TRANSPORT ENGINEER CISO Unavailable [phone] Se Levy [facility] Unavailable Unavailable Clari Ruiz [facility] Unavailable Angel Hannah MD Unavailable Lesly Celaya MD Unavailable Tawana Patel MA Unavailable Unavailable Ramses Mcpherson MD Unavailable [phone] Obdulio Barrera MD Unavailable [phone] Obdulio Barrera MD Unavailable [phone] Lesvia Stanley Unavailable Marilia Deluna PhD Unavailable Niyah Decker [facility] Unavailable Clari Poole [facility] Unavailable Lesvia Stanley Unavailable Clari Ruiz [facility] Unavailable [phone] Mago Swift [facility] Unavailable Encounter Details Date Type Department Care Team Description 04/28/2022 Travel Social History Tobacco Use Types Packs/Day [...] How often do you attend muslim or adventist services? Never 08/05/2021 Do you [...] at Date Recorded Female 11/09/2021 7:53 PM COMMERCIAL SALES MANAGER COVID-19 Exposure Response Date Recorded In the last 10 days, have you been in contact with No / Unsu re 04/28/2022 10:30 AM CDT someone who was confirmed or suspected to have Coronavirus/COVID-19? documented as of this encounter Plan of Treatment Upcoming Encounters Date Type Specialty Care Team Description 09/26/2022 Appointment Speech Therapy Obdulio Barrera MD 420 [facility] 276 [place], [place] [address] Anabel Chew, CHANNEL REBUILDER [place] [id number] [facility] 396 [place] [address] 09/27/2022 Therapy Visit Physical Therapy Luisana Watkins, PT 2[address] [place] [address] 09/29/2022 Virtual Visit Pain & Palliative Marilia Deluna, [facility] PhD [address] [place], [place] [address] 09/30/2022 Office Visit Family Practice Aydee Burton, TRANSPORT ENGINEER CISO [address] [place] [address] [phone] 10/03/2022 Therapy Visit Physical Therapy Una Reardon, PT [address] [place] [address] 10/10/2022 Hospital Encounter Surgery Lesly Celaya MD [address] [place], [place] [address] 10/10/2022 Office Visit Surgery Lesly Celaya MD [address] [place] [address] Ninoska Flowers PA-C [address] [facility] [address] [place] [address] 10/10/2022 Surgery Surgery Lesly Celaya, EXCISION, MASSES - MD back, abdomen, [address] right lower [facility] [place] [address] 10/11/2022 Virtual Visit Clari Su, [facility] [address] [place], [place] [address] 10/14/2022 Appointment Speech Therapy Anabel Chew, CHANNEL REBUILDER [address] 8394[address] 10/21/2022 Office Visit Pulmonology Obdulio Barrera MD [address] 5849[address] 10/25/2022 PRE VISIT ENT Charo Burton MD Previsit [address] [place], [place] [address] 10/25/2022 Office Visit ENT Charo Burton MD [address] [place], [place] [address] 10/25/2022 Office Visit ENT Provider, 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 Trimming Assembler 10/28/2022 Appointment Speech Therapy Anabel Chew, CELINE [address] 919415 11/17/2022 Appointment Speech Therapy Anabel Chew SLP [address] 823205 12/23/2022 Office Visit Neurology Colby Yeung MD [address] [place] [address]8555 Scheduled Procedures Name Priority Associated Diagnoses Date/Time EXCISION, MASS, TORSO Lipoma of skin and subcuta neous 10/10/2022 7:30 AM COMMERCIAL SALES MANAGER tissue documented as of this encounter Visit Diagnoses Not on filedocumented in this encounter Additional Health Concerns Assessment Noted Time PHQ-9 Depression Total Score: 16 03/25/2022 7:29 AM CD T documented as of this encounter Care Teams Still Tender Relationship Specialty Start Date End Date Aydee Burton, PCP - General Nurse Practitioner - 05/17/21 TRANSPORT ENGINEER CISO Family [address] [place] [address] Aydee Burton, Assigned PCP 04/28/21 TRANSPORT ENGINEER CISO [address] [place] [address] Louisa Hood, Assigned Neuroscience 07/11/21 TRANSPORT ENGINEER CISO Provider 500 [place], [place] [id number] Se Levy, Lead Burn Center Nurse 08/05/21 05/12/22 Clari Francois Pharmacist Pharmacist 08/06/21 06/07/22 Jocelyn, [facility] [address] [place] [address] [place], Tone Sleep 08/01/21 Angel Turcios, Provider [address] [place], [place] [address] Lesly Celaya MD Assigned Surgical 09/05/21 [address] [place] [address] Tawana Patel MA [facility] 09/30/21 Worker Ramses Mcpherson Assigned OBGYN 11/07/21 MD Onesimo Provider [address] [place] [address] Obdulio Barrera MD Critical Care 01/24/22 420 [facility] [address] [place] [address] Obdulio Barrera, Assigned Pulmonology 02/06/22 MD Provider 420 [facility] [address] [place], [place] [address] Lesvia Stanley, GHADA Cardiac Rehabilitation 03/03/22 03/03/23 [facility] Therapist [address] [place] [address] Marilia Deluna, PhD Assigned Behavioral 02/20/22 [address] [facility] [place] [address] Niyah Decker, [facility] Pharmacist Pharmacist 03/07/22 420 [facility] 812 [place] [address] Clari Poole, Pharmacist Pharmacist 03/07/22 06/15/[address] [facility] [address] [facility] [place] [address] Lesvia Stanley, GHADA Cardiac Rehabilitation 03/17/22 03/17/23 [facility] Therapist [address] [address] Clari Ruiz Assigned [place] 04/09/22 05/27/22 Jocelyn [facility] Pharmacist [address] [place], [place] [address] Mago Swift, [facility] Lead Burn Center Nurse Type Copyist - 08/05/21 Clinical documented as of this encounter
--- OUTSIDE RECORDS SUMMARY | 2022-09-21 04:03 | XMS_ITS | Encounter Summary ---
:1980 Author Organization [place] Address [address] [place] [address] Care Team Providers Name Role Phone Aydee Burton TAPROOM ATTENDANT CORRECTIONAL SUPERVISING COOK Primary Care Provider [phone] Aydee Burton TAPROOM ATTENDANT CORRECTIONAL SUPERVISING COOK Unavailable [phone] Louisa Hood TAPROOM ATTENDANT CORRECTIONAL SUPERVISING COOK Unavailable [phone] Se Levy [facility] Unavailable Unavailable Clari Ruiz [facility] Unavailable [phone] Angle Hannah MD Unavailable Lesly Celaya MD Unavailable Tawana Patel MA Unavailable Unavailable Ramses Mcpherson MD Unavailable [phone] Obdulio Barrera MD Unavailable [phone] Obdulio Barrera MD Unavailable [phone] Lesvia Stanley Unavailable Marilia Deluna PhD Unavailable Niyah Decker [facility] Unavailable Clari Poole [facility] Unavailable Lesvia Stanley Unavailable Clari Ruiz [facility] Unavailable [phone] Mago Swift [facility] Unavailable Encounter Details Date Type Department Care Team Description 04/25/2022 Travel Social History Tobacco Use Types Packs/Day [...] er 08/05/2021 How often do you attend mandaen or zoroastrianism services? Never 08/05/2021 Do you belong to any clubs or organizations such as mandaen N o 08/05/2021 groups, unions, fraternal or [...] place to sleep or slept in a nursing home (including now)? Sex Assigned at Date Recorded Female 11/09/2021 7:53 PM SUPPLY TECH COVID-19 Exposure Response Date Recorded In the last 10 days, have you been in contact Unable to asse ss 04/25/2022 1:12 PM CDT with someone who was confirmed or suspected to have Coronavirus/COVID-19? documented as of this encounter Plan of Treatment Upcoming Encounters Date Type Specialty Care Team Description 09/26/2022 Appointment Speech Therapy Obdulio Barrera MD 420 [facility] 276 [place], [place] [address] Anabel Chew, WOOD FENCE INSTALLER [facility] 516 [facility] 396 [place] [address] 09/27/2022 Therapy Visit Physical Therapy Luisana Watkins, PT [address] [place] [address] 09/29/2022 Virtual Visit Pain & Palliative Marilia Deluna, [facility] PhD [address] [place], [place] [address] 09/30/2022 Office Visit Family Practice Aydee Burton, TAPROOM ATTENDANT CORRECTIONAL SUPERVISING COOK [address] [place] [phone] 10/03/2022 Therapy Visit Physical Therapy Una Reardon, PT [address] [place] [address] 10/10/2022 Hospital Encounter Surgery Lesly Celaya MD [address] [place] [address] 10/10/2022 Office Visit Surgery Lesly Celaya MD [address] [place] [address] Ninoska Flowers PA-C [address] [facility] 300 [place] [address] 10/10/2022 Surgery Surgery Lesly Celaya, EXCISION, MASSES - MD back, abdomen, [address] right lower [facility] [place] [address] 10/11/2022 Virtual Visit Clari Su, [facility] 2450 [facility] [address] [place], [place] [address] 10/14/2022 Appointment Speech Therapy Anabel Chew, WOOD FENCE INSTALLER [address] 945405 10/21/2022 Office Visit Pulmonology Obdulio Barrera MD [address] 96[address] 10/25/2022 PRE VISIT ENT Charo Burton MD Previsit 909 [place], [place] [address] 10/25/2022 Office Visit ENT Charo Burton MD 909 [place], [place] [address] 10/25/2022 Office Visit ENT Provider, 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 Veterinary Technician Instructor 10/28/2022 Appointment Speech Therapy Anabel Chew, CELINE [address] [address] 11/17/2022 Appointment Speech Therapy Anabel Chew SLP [address] [address] 12/23/2022 Office Visit Neurology Colby Yeung MD [address] [place] [address] Scheduled Procedures Name Priority Associated Diagnoses Date/Time EXCISION, MASS, TORSO Lipoma of skin and subcuta neous 10/10/2022 7:30 AM SUPPLY TECH tissue documented as of this encounter Visit Diagnoses Not on filedocumented in this encounter Additional Health Concerns Assessment Noted Time PHQ-9 Depression Total Score: 16 03/25/2022 7:29 AM CD T documented as of this encounter Care Teams Machine Setter Supervisor Relationship Specialty Start Date End Date Aydee Burton, PCP - General Nurse Practitioner - 05/17/21 TAPROOM ATTENDANT CORRECTIONAL SUPERVISING COOK Family [address] [place] [address] Aydee Burton, Assigned PCP 04/28/21 TAPROOM ATTENDANT CORRECTIONAL SUPERVISING COOK [address] [place] [address] Louisa Hood, Assigned Neuroscience 07/11/21 TAPROOM ATTENDANT CORRECTIONAL SUPERVISING COOK Provider 500 [place] [address] Se Levy, Lead Shake Feeder 08/05/21 05/12/22 Clari Francois Pharmacist Pharmacist 08/06/21 06/07/22 Jocelyn, [facility] [address] [facility] [address] [place] [address] [place], Tone Sleep 08/01/21 Angel Turcios, Provider [address] [place] [address] Lesly Celaya MD Assigned Surgical 09/05/21 [address] [place] [address] Tawana Patel MA [facility] Health 09/30/21 Worker Ramses Mcpherson Assigned OBGYN 11/07/21 MD Onesimo Provider [address] [place] [address] Obdulio Barrera MD Critical Care 01/24/22 420 [facility] 276 [place] [address] Obdulio Barrera, Assigned Pulmonology 02/06/22 MD Provider 420 [facility] 276 [place], [place] [address] Lesvia Stanley, GHADA Cardiac Rehabilitation 03/03/22 03/03/23 [facility] Therapist [address] [place] [address] Marilia Deluna, PhD Assigned Behavioral 02/20/22 [address] [facility] [place] [address] Niyah Decker, [facility] Pharmacist Pharmacist 03/07/22 420 [facility] 812 [place] [address] Clari Poole, Pharmacist Pharmacist 03/07/22 06/15/22 [facility] [address] [facility] [place] [address] Lesvia Stanley, GHADA Cardiac Rehabilitation 03/17/22 03/17/23 [facility] Therapist [address] [address] Clari Ruiz Assigned MT 04/09/22 05/27/22 Jocleyn [facility] Pharmacist [address] [place], [place] [address] Mago Switf, [facility] Lead Shake Feeder Breaker Machine Tender - 08/05/21 Clinical documented as of this encounter
--- OUTSIDE RECORDS SUMMARY | 2022-09-21 04:03 | XMS_ITS | Encounter Summary ---
:1980 Author Organization [place] Address [address] [place] [address] Care Team Providers Name Role Phone Aydee Burton ROOM ATTENDANT OWNER/OPERATOR Primary Care Provider [phone] Aydee Burton ROOM ATTENDANT OWNER/OPERATOR Unavailable [phone] Louisa Hood ROOM ATTENDANT OWNER/OPERATOR Unavailable [phone] Se Levy [facility] Unavailable Unavailable Clari Ruiz [facility] Unavailable Angel Hannah MD Unavailable Lesly Celaya MD Unavailable Tawana Patel MA Unavailable Unavailable Ramses Mcpherson MD Unavailable [phone] Obdulio Barrera MD Unavailable [phone] Obdulio Barrera MD Unavailable [phone] Lesvia Stanley Unavailable Marilia Deluna PhD Unavailable Niyah Decker [facility] Unavailable Clari Poole [facility] Unavailable Lesvia Stanley Unavailable JosephClari jay [facility] Unavailable Mago Swift [facility] Unavailable Reason for Visit Rehab Therapy Cardiac Therapy (Routine: Next available opening) - Authorized Specialty Diagnoses / Procedures Referred By Contact Refer red To Contact CARDIAC REHAB Diagnoses Asthma SOB (shortness of breath) [place] [id number] [facility] [place] [address] Phone: Referral ID Status Reason Start Date Expiration Date Visits V isits Requested Authorized [id number] Authorized 11/13/2021 11/12/2022 365 365 Encounter Details Date Type Department Care Team Description 04/28/2022 Hospital Encounter [facility] Ezequiel Barrera MD 420 [facility] 276 [place] [address] Cardiac and Pulmonary 1, Rh Pulmonary Rehab Rehabilitation [address] [place] [address] Social History Tobacco Use Types [...] How often do you attend zoroastrianism or muslim services? Never 08/05/2021 Do you [...] place to sleep or slept in a penitentiary (including now)? Sex Assigned at Date Recorded Female 11/09/2021 7:53 PM BACON STRINGER COVID-19 Exposure Response Date Recorded In the [...] mouth 4 times capsuleIndications: daily Neuropathic pain gabapentin (NEURONTIN) 4 times daily 0 12/14/2021 [...] Obdulio Barrera MD 420 [facility] 276 [place], [place] [address] Anabel Chew, IRON WORKER FOREMAN [place] 128056 [facility] 396 [place], [place] [address] 09/27/2022 Therapy Visit Physical Therapy Luisana Watkins, PT [address] [place] [address] 09/29/2022 Virtual Visit Pain & Palliative Mikie, Marilia B, [facility] PhD [address] [place], [place] [address] 09/30/2022 Office Visit Family Practice Aydee Burton, ROOM ATTENDANT OWNER/OPERATOR [address] [place], [place] [address] 10/03/2022 Therapy Visit Physical Therapy Una Reardon, PT [address] [place] [address] 10/10/2022 Hospital Encounter Surgery Lesly Celaya MD [address] [place] [address] 10/10/2022 Office Visit Surgery Lesly Celaya MD [address] [place] [address] Ninoska Flowers, PA-C [address] [place] [address] 10/10/2022 Surgery Surgery Lesly Celaya, EXCISION, MASSES - MD back, abdomen, [address] right lower [facility] [place] [address] 10/11/2022 Virtual Visit Clari Su, [facility] [address] [place] [id number] [place], [place] [address] 10/14/2022 Appointment Speech Therapy Anabel Chew, IRON WORKER FOREMAN [facility] 516 [facility] 396 [place] [address] 10/21/2022 Office Visit Pulmonology Obdulio Barrera MD 420 [facility] 276 [place] [address] 10/25/2022 PRE VISIT ENT Charo Burton MD Previsit [address] [place] [address] 10/25/2022 Office Visit ENT Charo Burton MD [address] [place] [address] 10/25/2022 Office Visit ENT Provider, 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 Director Of Global Marketing 10/28/2022 Appointment Speech Therapy Anabel Chew, IRON WORKER FOREMAN [address] 4183[address] 11/17/2022 Appointment Speech Therapy Anabel Chew IRON WORKER FOREMAN [address] [address]64[address] 12/23/2022 Office Visit Neurology Colby Yeung MD [address] [place] [place] [address] Scheduled Procedures Name Priority Associated Diagnoses Date/Time EXCISION, MASS, TORSO Lipoma of skin and subcuta neous 10/10/2022 7:30 AM BACON STRINGER tissue documented as of this encounter Visit Diagnoses Not on filedocumented in this encounter Additional Health Concerns Assessment Noted Time PHQ-9 Depression Total Score: 16 03/25/2022 7:29 AM CD T documented as of this encounter Care Teams Clay Modeler Relationship Specialty Start Date End Date Aydee Burton, PCP - General Nurse Practitioner - 05/17/21 ROOM ATTENDANT OWNER/OPERATOR [facility] [address] [place] [address] [phone] Aydee Burton, Assigned PCP 04/28/21 ROOM ATTENDANT [address] [phone] Louisa Hood, Assigned Neuroscience 07/11/21 ROOM ATTENDANT OWNER/OPERATOR Provider 500 [place] [address] Se Levy, Lead Pressing Department Supervisor 08/05/21 05/12/22 Clari Francois Pharmacist Pharmacist 08/06/21 [facility]/07[facility] [address] [place] [address] [place], Assigned Sleep 08/01/21 Angel Turcios, Provider [address] [place] [address] Lesly Celaya MD Assigned Surgical 09/05/21 [address] [facility] [place] [address] Tawana Patel [facility] 09/30/21 Worker Ramses Mcpherson Assigned OBGYN 11/07/21 MD Onesimo Provider [address] [place] [address] Obdulio Barrera MD Critical Care 01/24/[address] [place] [address] Obdulio Barrera, Assigned Pulmonology 02/06/22 Provider 420 [facility] 276 [place] [address] Lesvia Stanley EP Cardiac Rehabilitation 03/03/22 03/03/23 [facility] Therapist [address] [place] [place] [address] Marilia Deluna, PhD Assigned Behavioral 02/20/22 [address] [facility] [place] [place] [address] Niyah Decker, [facility] Pharmacist Pharmacist 03/07/22 420 [facility] 812 [place], [place] [phone] Clari Poole, Pharmacist Pharmacist 03/07/22 06/15/22 [facility] [address] [facility] [address] [place] [phone] Lesvia Stanley EP Cardiac Rehabilitation 03/17/22 03/17/23 [facility] Therapist [address] [place] [address] Clari Ruiz Assigned MT 04/09/22 05/27/22 Jocelyn [facility] Pharmacist [address] [place] [address] Mago Swift, [facility] Lead Pressing Department Supervisor Pmp Certified Project Manager - 08/05/21 Clinical documented as of this encounter
--- OUTSIDE RECORDS SUMMARY | 2022-09-21 04:04 | XMS_ITS | Encounter Summary ---
:1980 Author Organization [place] Address [address] [place] [address] Care Team Providers Name Role Phone Aydee Burton BUFFING WHEEL PRESSER FIREWALL ENGINEER Primary Care Provider [phone] Aydee Burton BUFFING WHEEL PRESSER FIREWALL ENGINEER Unavailable [phone] Louisa Hood BUFFING WHEEL PRESSER FIREWALL ENGINEER Unavailable [phone] Se Levy [facility] Unavailable Unavailable Clari Ruiz [facility] Unavailable [phone] Angel Hannah MD Unavailable Lesly Celaya MD Unavailable Tawana Patel MA Unavailable Unavailable Ramses Mcpherson MD Unavailable [phone] Obdulio Barrera MD Unavailable [phone] Obdulio Barrera MD Unavailable [phone] Lesvia Stanley Unavailable Marilia Deluna PhD Unavailable Niyah Decker [facility] Unavailable Clari Poole [facility] Unavailable Lesvia Stanley Unavailable Clari Ruiz [facility] Unavailable [phone] Mago Swift [facility] Unavailable Encounter Details Date Type Department Care Team Description 04/15/2022 Travel Social History Tobacco Use Types Packs/Day [...] er 08/05/2021 How often do you attend islam or episcopalian services? Never 08/05/2021 Do you belong to any clubs or organizations such as islam N o 08/05/2021 groups, unions, fraternal or [...] at Date Recorded Female 11/09/2021 7:53 PM OUTREACH REPRESENTATIVE COVID-19 Exposure Response Date Recorded In the last 10 days, have you been in contact with No / Unsu re 04/15/2022 8:42 AM CDT someone who was confirmed or suspected to have Coronavirus/COVID-19? documented as of this encounter Plan of Treatment Upcoming Encounters Date Type Specialty Care Team Description 09/26/2022 Appointment Speech Therapy Obdulio Barrera MD 420 [facility] [address] [place], [place] [address] Anabel Chew, WOVEN LABEL DESIGNER [place] 596016 [facility] [address] [place] [address] 09/27/2022 Therapy Visit Physical Therapy Luisana Watkins, PT [address] [place] [address] 09/29/2022 Virtual Visit Pain & Palliative Marilia Deluna, [facility] PhD [address] [place], [place] [address] 09/30/2022 Office Visit Family Practice Aydee Burton, BUFFING WHEEL PRESSER FIREWALL ENGINEER [address] [place] [address] [id number] 10/03/2022 Therapy Visit Physical Therapy Una Reardon, PT [address] [place] [address] 10/10/2022 Hospital Encounter Surgery Lesly Celaya MD [address] [place], [place] [phone] 10/10/2022 Office Visit Surgery Lesly Celaya MD [address] [place] [address] Ninoska Flowers PA-C [address] [facility] [address] [place] [address] 10/10/2022 Surgery Surgery Lesly Celaya, EXCISION, MASSES - MD back, abdomen, [address] right lower [facility] [place] [address] 10/11/2022 Virtual Visit Clari Su, [facility] [address] [place], [place] [address] 10/14/2022 Appointment Speech Therapy Anabel Chew, WOVEN LABEL DESIGNER [address] [address]13[address] 10/21/2022 Office Visit Pulmonology Obdulio Barrera MD [address] 687[address] 10/25/2022 PRE VISIT ENT Charo Burton MD Previsit [address] [place], [place] [address] 10/25/2022 Office Visit ENT Charo Burton MD [address] [place], [place] [address] 10/25/2022 Office Visit ENT Provider, 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 Art Educator 10/28/2022 Appointment Speech Therapy Anabel Chew, CELINE [address] 5539[address] 11/17/2022 Appointment Speech Therapy Anabel Chew SLP [address] 691045 12/23/2022 Office Visit Neurology Colby Yeung MD [address] [place] [address]395 Scheduled Procedures Name Priority Associated Diagnoses Date/Time EXCISION, MASS, TORSO Lipoma of skin and subcuta neous 10/10/2022 7:30 AM OUTREACH REPRESENTATIVE tissue documented as of this encounter Visit Diagnoses Not on filedocumented in this encounter Additional Health Concerns Assessment Noted Time PHQ-9 Depression Total Score: 16 03/25/2022 7:29 AM CD T documented as of this encounter Care Teams Boat Oar Maker Relationship Specialty Start Date End Date Aydee Burton, PCP - General Nurse Practitioner - 05/17/21 BUFFING WHEEL PRESSER FIREWALL ENGINEER Family [address] [place] [address] Aydee Burton, Assigned PCP 04/28/21 BUFFING WHEEL PRESSER FIREWALL ENGINEER [address] [place] [address] Louisa Hood, Assigned Neuroscience 07/11/21 BUFFING WHEEL PRESSER FIREWALL ENGINEER Provider [address] [place], [place] [phone] Se Levy, Lead Veterinary Epidemiologist 08/05/21 05/12/22 Clari Francois Pharmacist Pharmacist 08/06/21 06/07/22 Jocelyn, [facility] [address] [place] [address] [place], Tone Sleep 08/01/21 Angel Turcios, Provider [address] [place], [place] [address] Lesyl Celaya MD Assigned Surgical 09/05/21 [address] [place] [place] [address] Tawana Patel MA [facility] 09/30/21 Worker Ramses Mcpherson Assigned OBGYN 11/07/21 MD Onesimo Provider [address] [place] [address] Obdulio Barrera MD Critical Care 01/24/22 420 [facility] [address] [place] [address] Obdulio Barrera, Assigned Pulmonology 02/06/22 MD Provider 420 [facility] [address] [place], [place] [address] Lesvia Stanley, GHAAD Cardiac Rehabilitation 03/03/22 03/03/23 [facility] Therapist [address] [place] [address] Marilia Deluna, PhD Assigned Behavioral 02/20/22 [address] [facility] [place] [address] Niyah Decker, [facility] Pharmacist Pharmacist 03/07/22 420 [facility] 8[address] [place] [address] Clari Poole, Pharmacist Pharmacist 03/07/22 06/15/22 [facility] [address] [facility] [place] [address] Lesvia Stanley, GHADA Cardiac Rehabilitation 03/17/22 03/17/23 [facility] Therapist [address] [address] Clari Ruiz Assigned [place] 04/09/22 05/27/22 Jocelyn [facility] Pharmacist [address] [place], [place] [address] Mago Swift, [facility] Lead Veterinary Epidemiologist Grievance And Appeals Coordinator - 08/05/21 Clinical documented as of this encounter
--- OUTSIDE RECORDS SUMMARY | 2022-09-21 04:04 | XMS_ITS | Encounter Summary ---
:1980 Author Organization [place] Address [address] [place] [address] Care Team Providers Name Role Phone Aydee Burton LIFE GUARD COUNCILLOR ABORIGINAL LAND COUNCIL Primary Care Provider [phone] Aydee Burton LIFE GUARD COUNCILLOR [employer]NC[employer] Unavailable [phone] Louisa Hood LIFE GUARD COUNCILLOR [employer] Unavailable [phone] Se Levy [facility] Unavailable Unavailable Clari Ruiz [facility] Unavailable Angel Hannah MD Unavailable Lesly Celaya MD Unavailable Tawana Patel MA Unavailable Unavailable Ramses Mcpherson MD Unavailable [phone] Obdulio Barrera MD Unavailable Obdulio Barrera MD Unavailable [phone] Lesvia Stanley Unavailable Marilia Deluna PhD Unavailable Niyah Decker [facility] Unavailable Clari Poole [facility] Unavailable Lesvia Stanley Unavailable Clari Ruiz [facility] Unavailable [phone] [facility] Unavailable Encounter Details Date Type Department Care Team Description 04/12/2022 Travel Social History Tobacco Use Types Packs/Day [...] er 08/05/2021 How often do you attend latter day or jainism services? Never 08/05/2021 Do you belong to any clubs or organizations such as latter day N o 08/05/2021 groups, unions, fraternal or [...] at Date Recorded Female 11/09/2021 7:53 PM CHEMICAL TREATMENT PLANT TECHNICIAN COVID-19 Exposure Response Date Recorded In the last 10 days, have you been in contact with No / Unsu re 04/12/2022 12:57 PM CDT someone who was confirmed or suspected to have Coronavirus/COVID-19? documented as of this encounter Plan of Treatment Upcoming Encounters Date Type Specialty Care Team Description 09/26/2022 Appointment Speech Therapy Obdulio Barrera MD 420 [facility] [address] [place], [place] [address] Anabel Chew, DUMPER BULK SYSTEM [place] 603566 [facility] [address] [place] [address] 09/27/2022 Therapy Visit Physical Therapy Luisana Watkins, PT [address] [place] [address] 09/29/2022 Virtual Visit Pain & Palliative Marilia Deluna, [facility] PhD [address] [place], [place] [address] 09/30/2022 Office Visit Family Practice Aydee Burton, LIFE GUARD COUNCILLOR [employer] [place] [employer] [address] [place] [phone] 10/03/2022 Therapy Visit Physical Therapy Una Reardon, PT [address] [place] [address] 10/10/2022 Hospital Encounter Surgery Lesly Celaya MD [address] [place], [place] [phone] 10/10/2022 Office Visit Surgery Lesly Celaya MD [address] [place] [address] Ninoska Folwers PA-C [address] [facility] [address] [place] [address] 10/10/2022 Surgery Surgery Lesly Celaya, EXCISION, MASSES - MD back, abdomen, [address] right lower [facility] [place] [place] [address] 10/11/2022 Virtual Visit Clari Su, [facility] [address] [place], [place] [address] 10/14/2022 Appointment Speech Therapy Anabel Chew, DUMPER BULK SYSTEM [address] 4510[address] 10/21/2022 Office Visit Pulmonology Obdulio Barrera MD [address] 1477[address] 10/25/2022 PRE VISIT ENT Charo Burton MD Previsit [address] [place], [place] [address] 10/25/2022 Office Visit ENT Charo Burton MD [address] [place], [place] [address] 10/25/2022 Office Visit ENT Provider, 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 Nursing Director 10/28/2022 Appointment Speech Therapy Anabel Chew, CELINE [address] [address]307[address] 11/17/2022 Appointment Speech Therapy Anabel Chew SLP [address] [address] 12/23/2022 Office Visit Neurology Colby Yeung MD [address] [address]98645 Scheduled Procedures Name Priority Associated Diagnoses Date/Time EXCISION, MASS, TORSO Lipoma of skin and subcuta neous 10/10/2022 7:30 AM CHEMICAL TREATMENT PLANT TECHNICIAN tissue documented as of this encounter Visit Diagnoses Not on filedocumented in this encounter Additional Health Concerns Assessment Noted Time PHQ-9 Depression Total Score: 16 03/25/2022 7:29 AM CD T documented as of this encounter Care Teams Netsuite Consultant Relationship Specialty Start Date End Date Aydee Burton, PCP - General Nurse Practitioner - 05/17/21 LIFE GUARD COUNCILLOR [employer]IGIN[employer] LAND COUNCIL Family [address] [place] [address] Aydee Burton, Assigned PCP 04/28/21 LIFE GUARD COUNCILLOR AB[employer]IGINAL LAND COUNCIL [address] [place] [address] Louisa Hood, Assigned Neuroscience 07/11/21 LIFE GUARD COUNCILLOR ABORIGINAL LAND COUNCIL Provider [address] [place], [place] [phone] Se Levy, Lead Bolt Cutter 08/05/21 05/12/22 Clari Francois Pharmacist Pharmacist 08/06/21 06/07/22 Jocelyn, [facility] [address] [place] [address] [place], Tone Sleep 08/01/21 Angel Turcios, Provider [address] [place], [place] [address] Lesly Celaya MD Assigned Surgical 09/05/21 [address] [place] [address] Tawana Patel MA [facility] 09/30/21 Worker Ramses Mcpherson Assigned OBGYN 11/07/21 MD Onesimo Provider [address] [place] [address] Obdulio Barrera MD Critical Care 01/24/22 420 [facility] [address] [place] [address] Obdulio Barrera, Assigned Pulmonology 02/06/22 MD Provider 420 [facility] 276 [place], [place] [address] Lesvia Stanley, GHADA Cardiac Rehabilitation 03/03/22 03/03/23 [facility] Therapist [address] [place] [place] [address] Marilia Deluna, PhD Assigned Behavioral 02/20/22 [address] [facility] [place] [address] Niyah Decker, [facility] Pharmacist Pharmacist 03/07/22 420 [facility] 812 [place] [address] Clari Poole, Pharmacist Pharmacist 03/07/22 06/15/22 [facility] [address] [facility] [place] [address] Lesvia Stanley, GHADA Cardiac Rehabilitation 03/17/22 03/17/23 [facility] Therapist [address] [address] Clari Ruiz Assigned [place] 04/09/22 05/27/22 Jocelyn [facility] Pharmacist [address] [place], [place] [address] Mago Swift, [facility] Lead Bolt Cutter Sander Wooden Pencils - 08/05/21 Clinical documented as of this encounter
--- OUTSIDE RECORDS SUMMARY | 2022-09-21 04:04 | XMS_ITS | Encounter Summary ---
:1980 Author Organization [place] Address [address] [place] [address] Care Team Providers Name Role Phone Aydee Burton CARPENTER MATE ANESTHESIA RESIDENT Primary Care Provider [phone] Aydee Burton CARPENTER MATE ANESTHESIA RESIDENT Unavailable [phone] Louisa Hood CARPENTER MATE ANESTHESIA RESIDENT Unavailable [phone] Se Levy [facility] Unavailable Unavailable Clari Ruiz [facility] Unavailable [phone] Angel Hannah MD Unavailable Lesly Celaya MD Unavailable Tawana Patel MA Unavailable Unavailable Ramses Mcpherson MD Unavailable [phone] Obdulio Barrera MD Unavailable [phone] Obdulio Barrera MD Unavailable [phone] Lesvia Stanley Unavailable Marilia Deluna PhD Unavailable Niyah Decker [facility] Unavailable Clari Poole [facility] Unavailable Lesvia Stanley Unavailable JosephClari jay [facility] Unavailable Mago Swift [facility] Unavailable Reason for Visit Rehab Therapy Cardiac Therapy (Routine: Next available opening) - Authorized Specialty Diagnoses / Procedures Referred By Contact Refer red To Contact CARDIAC REHAB Diagnoses Asthma SOB (shortness of breath) [place] [address] [facility] [place] [address] Phone: Referral ID Status Reason Start Date Expiration Date Visits V isits Requested Authorized [id number] Authorized 11/13/2021 11/12/2022 365 365 Encounter Details Date Type Department Care Team Description 04/20/2022 Hospital Encounter [facility] Ezequiel Barrera MD 420 [facility] 276 [place] [address] Cardiac and Pulmonary 2, Rh Pulmonary Rehab Rehabilitation [address] [place] [address] Social History Tobacco Use Types [...] How often do you attend scientologist or baptism services? Never 08/05/2021 Do you [...] Female 11/09/2021 7:53 PM SALES AND SERVICE ASSOCIATE COVID-19 Exposure Response Date Recorded In the [...] Barrera MD 420 [facility] 276 [place], [place] [address] Anabel Chew, ACCOUNTING SYSTEMS MANAGER [place] 608[address] [facility] 396 [place], [place] [address] 09/27/2022 Therapy Visit Physical Therapy Luisana Watkins, PT [address] [place] [address] 09/29/2022 Virtual Visit Pain & Palliative Marilia Deluna Care PhD [address] [place] [address] 09/30/2022 Office Visit Family Practice Burton Aydee Mendez, CARPENTER MATE ANESTHESIA RESIDENT [address] [place], [place] [phone] 10/03/2022 Therapy Visit Physical Therapy David-Una Tang, PT [address] [place] [address] 10/10/2022 Hospital Encounter Surgery Lesly Celaya MD [address] [place] [address] 10/10/2022 Office Visit Surgery Lesly Celaya MD [address] [place] [address] Ninoska Flowers PA-Ynes [address] [place] [address] 10/10/2022 Surgery Surgery Lesly Celaya, EXCISION, MASSES - MD back, abdomen, [address] [place] [address] 10/11/2022 Virtual Visit Pharm Clari Stoll, [address] [address] 10/14/2022 Appointment Speech Therapy Anabel Chew, ACCOUNTING SYSTEMS MANAGER [facility] 516 [facility] 396 [place] [address] 10/21/2022 Office Visit Pulmonology Obdulio Barrera MD 420 [facility] 276 [place], [place] [address] 10/25/2022 PRE VISIT ENT Charo Burton MD Previsit 909 [place] [address] 10/25/2022 Office Visit ENT Charo Burton MD 9[address] [place] [address] 10/25/2022 Office Visit ENT Provider, 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 Compound Filler 10/28/2022 Appointment Speech Therapy Anabel Chew, ACCOUNTING SYSTEMS MANAGER [address] [address] 11/17/2022 Appointment Speech Therapy Anabel Chew, ACCOUNTING SYSTEMS MANAGER [address] [address] 12/23/2022 Office Visit Neurology Colby Yeung MD [address] [place] [address] Scheduled Procedures Name Priority Associated Diagnoses Date/Time EXCISION, MASS, TORSO Lipoma of skin and subcuta neous 10/10/2022 7:30 AM SALES AND SERVICE ASSOCIATE tissue documented as of this encounter Visit Diagnoses Not on filedocumented in this encounter Additional Health Concerns Assessment Noted Time PHQ-9 Depression Total Score: 16 03/25/2022 7:29 AM CD T documented as of this encounter Care Teams Printer Repair Technician Relationship Specialty Start Date End Date Aydee Burton, PCP - General Nurse Practitioner - 05/17/21 CARPENTER MATE ANESTHESIA RESIDENT Family [address] [place] [address] [phone] Aydee Burton, Assigned PCP 04/28/21 CARPENTER MATE ANESTHESIA RESIDENT [address] [place] [address] [phone] Louisa Hood, Assigned Neuroscience 07/11/21 CARPENTER MATE ANESTHESIA RESIDENT Provider [address] [place], [place] [address] Se Levy, Lead Harmonica Maker 08/05/21 05/12/22 Clari Francois Pharmacist Pharmacist 08/06/21 06/07/22 Jocelyn [facility] [address] [place] [address] [place], Assigned Sleep 08/01/21 Angel Turcios, Provider [address] [place] [address] Lesly Celaya MD Assigned Surgical 09/05/21 [address] [facility] [place] [address] Tawana Patel [facility] 09/30/21 Worker Ramses Mcpherson Assigned OBGYN 11/07/21 MD Onesimo Provider [address] [place] [address] Obdulio Barrera MD Critical Care 01/24/[address] [place] [address] [id number] Obdulio Barrera, Tone Pulmonology 02/06/[address] [place] [phone] Lesvia Stanley EP Cardiac Rehabilitation 03/03/22 03/03/23 [facility] Therapist [address] [address] Marilia Deluna, PhD Assigned Behavioral 02/20/22 [address] [facility] Provider [place], [place] [phone] Niyah Decker, [facility] Pharmacist Pharmacist 03/07/22 [address] [place] [facility] 8[address] [place] [address] Clari Poole, Pharmacist Pharmacist 03/07/22 06/15/22 [facility] [address] [facility] [place] [address] Lesvia Stanley EP Cardiac Rehabilitation 03/17/22 03/17/23 [facility] Therapist [address] [place] [address] Clari Ruiz Assigned [facility] 04/09/22 05/27/22 Jocelyn [facility] Pharmacist [address] [place], [place] [phone] Mago Swift, [facility] Lead Harmonica Maker Pediatric Speech Therapist - 08/05/21 Clinical documented as of this encounter
--- OUTSIDE RECORDS SUMMARY | 2022-09-21 04:04 | XMS_ITS | Encounter Summary ---
:1980 Author Organization [facility] Address [address] [place] [address] Care Team Providers Name Role Phone Aydee Burton TOW TRUCK DISPATCHER RETORT UNLOADER Primary Care Provider [phone] Aydee Burton TOW TRUCK DISPATCHER RETORT UNLOADER Unavailable [phone] Louisa Hood TOW TRUCK DISPATCHER RETORT UNLOADER Unavailable [phone] Se Levy [facility] Unavailable Unavailable Clari Ruiz [facility] Unavailable Angel Hannah MD Unavailable Lesly Celaya MD Unavailable Tawana Patel MA Unavailable Unavailable Ramses Mcpherson MD Unavailable [phone] Obdulio Barrera MD Unavailable [phone] Obdulio Barrera MD Unavailable [phone] Lesvia Stanley Unavailable Marilia Deluna PhD Unavailable Niyah Decker [facility] Unavailable Clari Poole [facility] Unavailable Lesvia Stnaley Unavailable Clari Ruiz [facility] Unavailable [phone] Mago Swift [facility] Unavailable Reason for Referral Diagnostic Imaging CT Scan (Routine) - Closed Specialty Diagnoses / Procedures Referred By Contact Refer red To Contact Diagnoses Other chronic sinusitis Shant Macias MD Procedures CT Sinus w/o Contrast [facility] [address] [place] [place] [address] [place] [address] Referral ID Status Reason Start Date Expiration Date Visits Requ ested Visits Authorized [id number] Closed 03/31/2022 03/31/2023 1 1 Reason for Visit Diagnostic Imaging CT Scan (Routine) - Closed Specialty Diagnoses / Procedures Referred By Contact Refer red To Contact Diagnoses Other chronic sinusitis Shant Macias MD Procedures CT Sinus w/o Contrast [facility] [address] [place] [id number] Referral ID Status Reason Start Date Expiration Date Visits Requ ested Visits Authorized [id number] Closed 03/31/2022 03/31/2023 1 1 Encounter Details Date Type Department Care Team Description 04/15/2022 Hospital Encounter [facility] Shant Macias Other chronic [facility] sinusitis [address] [facility] [id number] [phone] [place] [address] Social History Tobacco Use Types Packs/Day Years [...] er 08/05/2021 How often do you attend hoahaoism or hoahaoism services? Never 08/05/2021 Do you belong to any clubs or organizations such as hoahaoism N o 08/05/2021 groups, unions, fraternal or [...] at Date Recorded Female 11/09/2021 7:53 PM PRODUCTION CONTROL EXPEDITER COVID-19 Exposure Response Date Recorded In the [...] (ROBAXIN) Take 1-1.5 tablets 90 tablet 1 12/202105/14/2022 500 MG (500-750 mg) by mouth tabletIndications: [...] Obdulio Barrera MD 420 [facility] 276 [place] [address] Anabel Chew, PHARMACY TECHNICIAN PER [place] [address] [place] [address] 09/27/2022 Therapy Visit Physical Therapy Luisana Watkins, PT 2155 [place] [address] 09/29/2022 Virtual Visit Pain & Palliative Marilia Deluna, Care PhD [address] [place] [address] 09/30/2022 Office Visit Family Practice Aydee Burton, TOW TRUCK DISPATCHER RETORT UNLOADER [address] [place] [address] 10/03/2022 Therapy Visit Physical Therapy Una Reardon, PT 2154 [place] [phone] 10/10/2022 Hospital Encounter Surgery Lesly Celaya MD [address] [place], [place] [address] 10/10/2022 Office Visit Surgery Lesly Celaya MD [address] [place], [place] [phone] Ninoska Flowers PA-C [address] [place] [address] 10/10/2022 Surgery Surgery Lesly Celaya, EXCISION, MASSES - MD back, abdomen, [address] right lower [address] extremity [place], [place] [address] 10/11/2022 Virtual Visit Clari Su, [address] [place] [address] 10/14/2022 Appointment Speech Therapy Anabel Chew, PHARMACY TECHNICIAN PER [place] [address] [address] 10/21/2022 Office Visit Pulmonology Obdulio Barrera MD [address] [address] 10/25/2022 PRE VISIT ENT Charo Burton MD Previsit [address] [place] [address]96125 10/25/2022 Office Visit ENT Charo Burton MD 909 [place], [place] [address] 10/25/2022 Office Visit ENT Provider, 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 Epic Cupid Analyst 10/28/2022 Appointment Speech Therapy Anabel Chew, PHARMACY TECHNICIAN [address] [address] 11/17/2022 Appointment Speech Therapy Anabel Chew, PHARMACY TECHNICIAN [address] [address] 12/23/2022 Office Visit Neurology Colby Yeung MD [address] [address] Scheduled Procedures Name Priority Associated Diagnoses Date/Time EXCISION, MASS, TORSO Lipoma of skin and subcuta neous 10/10/2022 7:30 AM PRODUCTION CONTROL EXPEDITER tissue documented as of this encounter Procedures Procedure Name Priority Date/Time Associated Diagnosis Comme nts CT SINUS W/O Routine 04/15/2022 9:04 AM Other chronic Results for this CONTRAST CDT sinusitis procedure are i n the results section. documented in this encounter Results CT Sinus w/o Contrast (04/15/2022 9:04 AM CDT) Anatomical Region Laterality Modality Sinus, SUBRAD CT NEURO, SUBRAD CT NEURO, UMP CT NEURO, Computed Tomography RAD CT Specimen (Source) Anatomical Location Collection Method / Collectio n Time Received Time / Laterality Volume Impressions 04/15/2022 9:10 AM CDT IMPRESSION: 1. ??Postsurgical changes right uncinect rosey and antrostomy. The antrostomy is widely patent. 2. ??Otherwise negative paranasal sinus CT without evidence of mucosal thickening, obstruction, or air-fluid le vels. CALDERON NICHOLAS MD Narrative 04/15/2022 9:[address] SINUS W/O CONTRAST 04/15/2022 9:04 AM INDICATION: Other chronic sinusitis TECHNIQUE: CT scan of the sinuses withou t contrast. Dose reduction techniques were used. CONTRAST: None. COMPARISON: None FINDINGS: Postsurgical changes right uncinectomy a nd antrostomy. The antrostomy is widely patent. The frontal, ethmoid, maxillary, and sphenoid sinuses are pneumatized and well aerated without evidence of mucosal thickening, obstruction, or air-fluid le vels. The nasal frontal recesses, ostomy units, and sphenoethmoi rosalina recesses are patent. No mucoperiosteal reaction. No amanda bullo sa or Lina cells. The nasal septum is midline. Anatomical Considerations: Height of the cribriform plate: Symmetri c and in the mid orbital plane. Lanier and height of the fovea ethmoidali s: Asymmetric with the left superior the right by 6 mm. Notch for the anterior ethmoid artery: S ymmetric bilaterally without evidence of osseous injury. Foramen rotundum: Intact bilaterally wit hout evidence of dehiscence. Vidian canals: Intact bilaterally withou t evidence of dehiscence. Carotid Canals: Intact bilaterally witho ut evidence of venous sinus. The sphenoid septum attaches to the left carotid canal. Visualized mastoid air cells and middle ears are well aerated bilaterally. Visualized intracranial contents, orbits and nasopharynx are unremarkable. Procedure Note Calderon Nciholas MD - 04/15/2022Formatt ing of this note might be different from the original. CT SINUS W/O CONTRAST 04/15/2022 9:04 AM INDICATION: Other chronic sinusitis TECHNIQUE: CT scan of the sinuses withou t contrast. Dose reduction techniques were used. CONTRAST: None. COMPARISON: None FINDINGS: Postsurgical changes right uncinectomy a nd antrostomy. The antrostomy is widely patent. The frontal, ethmoid, maxillary, and sphenoid sinuses are pneumatized and well aerated without evidence of mucosal thickening, obstruction, or air-fluid le vels. The nasal frontal recesses, ostomy units, and sphenoethmoi rosalina recesses are patent. No mucoperiosteal reaction. No amanda bullo sa or Lina cells. The nasal septum is midline. Anatomical Considerations: Height of the cribriform plate: Symmetri c and in the mid orbital plane. Lanier and height of the fovea ethmoidali s: Asymmetric with the left superior the right by 6 mm. Notch for the anterior ethmoid artery: S ymmetric bilaterally without evidence of osseous injury. Foramen rotundum: Intact bilaterally wit hout evidence of dehiscence. Vidian canals: Intact bilaterally withou t evidence of dehiscence. Carotid Canals: Intact bilaterally witho ut evidence of venous sinus. The sphenoid septum attaches to the left carotid canal. Visualized mastoid air cells and middle ears are well aerated bilaterally. Visualized intracranial contents, orbits and nasopharynx are unremarkable. IMPRESSION: 1. Postsurgical changes right uncinectom y and antrostomy. The antrostomy is widely patent. 2. Otherwise negative paranasal sinus CT without evidence of mucosal thickening, obstruction, or air-fluid le vels. CALDERON NICHOLAS MD Shant Macias MD IMG CT ORDERABLES documented in this encounter Visit Diagnoses Diagnosis Other chronic sinusitis Lipoma of skin and subcutaneous tissue Lipoma of other skin and subcutaneous ti ssue documented in this encounter Additional Health Concerns Assessment Noted Time PHQ-9 Depression Total Score: 16 03/25/2022 7:29 AM CD T documented as of this encounter Care Teams Feller Operator Relationship Specialty Start Date End Date Aydee Burton, PCP - General Nurse Practitioner - 05/17/21 TOW TRUCK DISPATCHER RETORT UNLOADER Family [address] [place], [place] [address] Aydee Burton, Assigned PCP 04/28/21 TOW TRUCK DISPATCHER RETORT UNLOADER [address] [place], [place] [phone] Louisa Hood, Assigned Neuroscience 07/11/21 TOW TRUCK DISPATCHER RETORT UNLOADER Provider 500 [place], [place] [phone] Se Levy, Lead Multimedia Artist 08/05/21 05/12/22 Clari Francois Pharmacist Pharmacist 08/06/21 06/07/22 Jocelyn [facility] [address] [place], [place] [phone] [place], Assigned Sleep 08/01/21 Angel Turcios, Provider [address] [place], [place] [address] Lesly Celaya MD Assigned Surgical 09/05/21 [address] Provider [place], [place] [phone] Tawana Patel MA [facility] 09/30/21 Worker Ramses Mcpherson Assigned OBGYN 11/07/21 MD Onesimo Provider [address] [place], [place] [address] Obdulio Barrera MD Critical Care 01/24/[address] [place] [phone] Obdulio Barrera, Tone Pulmonology 02/06/22 [address] [phone] Lesvia Stanley, EP Cardiac Rehabilitation 03/03/22 03/03/23 [facility] Therapist [address] [address]12[address] Marilia Deluna, PhD Assigned Behavioral 02/20/22 [address] [facility] Health Provider [place], [place] 842267 Niyah Decker, [facility] Pharmacist Pharmacist 03/07/22 420 [facility] 812 [place], [place] [address] Clari Poole, Pharmacist Pharmacist 03/07/22 06/15/22 [facility] [address] [place] [address] Lesvia Stanley, GHADA Cardiac Rehabilitation 03/17/22 03/17/23 [facility] Therapist [address] [address] Clari Ruiz Assigned [place] 04/09/22 05/27/22 Jocelyn [facility] Pharmacist [address] [place], [place] [address] Mago Swift, [facility] Lead Multimedia Artist Cable Armorer Operator - 08/05/21 Clinical documented as of this encounter
--- OUTSIDE RECORDS SUMMARY | 2022-09-21 04:04 | XMS_ITS | Encounter Summary ---
:1980 Author Organization [facility] Address [address] [place] [address] Care Team Providers Name Role Phone Aydee Burton SKI LIFT OPERATOR SALES SERVICE ASSISTANT Primary Care Provider [phone] Aydee Burton SKI LIFT OPERATOR SALES SERVICE ASSISTANT Unavailable [phone] Louisa Hood SKI LIFT OPERATOR SALES SERVICE ASSISTANT Unavailable [phone] Se Levy [facility] Unavailable Unavailable Clari Ruiz [facility] Unavailable Angel Hannah MD Unavailable Lesly Celaya MD Unavailable Tawana Patel MA Unavailable Unavailable Ramses Mcpherson MD Unavailable [phone] Obdulio Barrera MD Unavailable [phone] Obdulio Barrera MD Unavailable [phone] Lesvia Stanley Unavailable Marilia Deluna PhD Unavailable Niyah Decker [facility] Unavailable Clari Poole [facility] Unavailable Lesvia Stanley Unavailable Clari Ruiz [facility] Unavailable Mago Swift [facility] Unavailable Encounter Details Date Type Department Care Team Description 04/14/2022 Travel Social History Tobacco Use Types Packs/Day [...] How often do you attend muslim or gnosticism services? Never 08/05/2021 Do you [...] in contact with No / Unsu re 04/14/2022 12:12 PM CDT someone who was confirmed or suspected to have Coronavirus/COVID-19? documented as of this encounter Plan of Treatment Upcoming Encounters Date Type Specialty Care Team Description 09/26/2022 Appointment Speech Therapy Obdulio Barrera MD 420 [facility] 276 [place], [place] [phone] Anabel Chew, HOSPICE ADMINISTRATOR [place] 127016 [facility] 396 [place] [address] 09/27/2022 Therapy Visit Physical Therapy Luisana Watkins, PT [address] [place] [address] 09/29/2022 Virtual Visit Pain & Palliative Marilia Deluna, [facility] PhD [address] [place], [place] [address] 09/30/2022 Office Visit Family Practice Aydee Burton, SKI LIFT OPERATOR SALES SERVICE ASSISTANT [address] [place] [phone] 10/03/2022 Therapy Visit Physical Therapy Una Reardon, PT [address] [place] [address] 10/10/2022 Hospital Encounter Surgery Lesly Celaya MD [address] [place], [place] [phone] 10/10/2022 Office Visit Surgery Lesly Celaya MD [address] [place] [address] Ninoska Flowers PA-C [address] [facility] 300 [place] [address] 10/10/2022 Surgery Surgery Lesly Celaya, EXCISION, MASSES - MD back, abdomen, [address] right lower [facility] [place] [address] 10/11/2022 Virtual Visit Clari Su, [facility] [address] [place] [address] [address] [place], [place] [address] 10/14/2022 Appointment Speech Therapy Anabel Chew, HOSPICE ADMINISTRATOR [address] [address] 10/21/2022 Office Visit Pulmonology Obdulio Barrera MD [address] 6364[address] 10/25/2022 PRE VISIT ENT Charo Burton MD Previsit [address] [place], [place] [address]65 10/25/2022 Office Visit ENT Charo Burton MD [address] [place], [place] [address]275 10/25/2022 Office Visit ENT Provider, 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 Tractor Mechanic Apprentice 10/28/2022 Appointment Speech Therapy Anabel Chew, CELINE [address] 720055 11/17/2022 Appointment Speech Therapy Anabel Chew SLP [address] 923105 12/23/2022 Office Visit Neurology Colby Yeung MD [address] [address]38[address] Scheduled Procedures Name Priority Associated Diagnoses Date/Time EXCISION, MASS, TORSO Lipoma of skin and subcuta neous 10/10/2022 7:30 AM INSURANCE EXAMINER tissue documented as of this encounter Visit Diagnoses Not on filedocumented in this encounter Additional Health Concerns Assessment Noted Time PHQ-9 Depression Total Score: 16 03/25/2022 7:29 AM CD T documented as of this encounter Care Teams Bulk Filler Relationship Specialty Start Date End Date Aydee Burton, PCP - General Nurse Practitioner - 05/17/21 SKI LIFT OPERATOR SALES SERVICE ASSISTANT Family [address] [place] [address] Aydee Burton, Assigned PCP 04/28/21 SKI LIFT OPERATOR SALES SERVICE ASSISTANT [address] [place] [address] Louisa Hood, Assigned Neuroscience 07/11/21 SKI LIFT OPERATOR SALES SERVICE ASSISTANT Provider [address] [place], [place] [phone] Se Levy, Lead Contact Center Professional 08/05/21 05/12/22 Clari Francois Pharmacist Pharmacist 08/06/21 06/07/22 Jocelyn, [facility] [address] [place] [address] [place], Tone Sleep 08/01/21 Angel Turcios, Provider [address] [place], [place] [address] Lesly Celaya MD Assigned Surgical 09/05/21 [address] [place] [address] Tawana Patel MA [facility] 09/30/21 Worker Ramses Mcpherson Assigned OBGYN 11/07/21 MD Onesimo Provider [address] [place] [address] Obdulio Barrera MD Critical Care 01/24/22 420 [facility] [address] [place] [address] Obdulio Barrera, Assigned Pulmonology 02/06/22 MD Provider 420 [facility] [address] [place], [place] [address] Lesvia Stanley, GHADA Cardiac Rehabilitation 03/03/22 03/03/23 [facility] Therapist [address] [place] [place] [address] Marilia Deluna, PhD Assigned Behavioral 02/20/22 [address] [facility] [place] [address] Niyah Decker, [facility] Pharmacist Pharmacist 03/07/22 420 [facility] 812 [place] [address] Clari Poole, Pharmacist Pharmacist 03/07/22 06/15/22 [facility] [address] [place] [address] Lesvia Stanley, GHADA Cardiac Rehabilitation 03/17/22 03/17/23 [facility] Therapist [address] [address] Clari Ruiz Assigned [place] 04/09/22 05/27/22 Jocelyn [facility] Pharmacist [address] [place], [place] [address] Mago Swift, [facility] Lead Contact Center Professional Regulatory Affairs Consultant - 08/05/21 Clinical documented as of this encounter
--- OUTSIDE RECORDS SUMMARY | 2022-09-21 04:04 | XMS_ITS | Encounter Summary ---
:1980 Author Organization [facility] Address [address] [place] [address] Care Team Providers Name Role Phone Aydee Burton TOWER FOREMAN BRADLEY LINEBACKER CREWMEMBER Primary Care Provider [phone] Aydee Burton TOWER FOREMAN BRADLEY LINEBACKER CREWMEMBER Unavailable [phone] Louisa Hood TOWER FOREMAN BRADLEY LINEBACKER CREWMEMBER Unavailable [phone] Se Levy [facility] Unavailable Unavailable Clari Ruiz [facility] Unavailable Angel Hannah MD Unavailable Lesly Celaya MD Unavailable Tawana Patel MA Unavailable Unavailable Ramses Mcpherson MD Unavailable [phone] Obdulio Barrera MD Unavailable [phone] Obdulio Barrera MD Unavailable [phone] Lesvia Stanley Unavailable Marilia Deluna PhD Unavailable Niyah Decker [facility] Unavailable Clari Poole [facility] Unavailable Lesvia Stanley Unavailable JosephClari jay [facility] Unavailable [phone] Mago Swift [facility] Unavailable Reason for Visit Rehab Therapy Cardiac Therapy (Routine: Next available opening) - Authorized Specialty Diagnoses / Procedures Referred By Contact Refer red To Contact CARDIAC REHAB Diagnoses Asthma SOB (shortness of breath) [place] 698100 [facility] [place] [address] Phone: Referral ID Status Reason Start Date Expiration Date Visits V isits Requested Authorized [id number] Authorized 11/13/2021 11/12/2022 365 365 Encounter Details Date Type Department Care Team Description 04/12/2022 Hospital Encounter [facility] Ezequiel Barrera MD 420 [facility] 276 [place] [address] Cardiac and Pulmonary 1, Rh Pulmonary Rehab Rehabilitation [address] [place] [address] Social History Tobacco Use Types [...] er 08/05/2021 How often do you attend uatsdin or restorationist services? Never 08/05/2021 Do you belong to any clubs or organizations such as uatsdin N o 08/05/2021 groups, unions, fraternal or [...] at Date Recorded Female 11/09/2021 7:53 PM BUILDING CONSTRUCTION CONTRACTOR COVID-19 Exposure Response Date Recorded In the [...] MD 420 [facility] 276 [place], [place] [address] Anabel Chew, TOE FORMER [place] 265316 [facility] 396 [place], [place] [address] 09/27/2022 Therapy Visit Physical Therapy Luisana Watkins, PT [address] [place] [address] 09/29/2022 Virtual Visit Pain & Palliative Marilia Deluna Care PhD [address] [place] [address] 09/30/2022 Office Visit Family Practice Burton Aydee Mendez, TOWER FOREMAN BRADLEY LINEBACKER CREWMEMBER [address] [place], [place] [phone] 10/03/2022 Therapy Visit Physical Therapy David-Una Tang, PT [address] [place] [address] 10/10/2022 Hospital Encounter Surgery Lesly Celaya MD [address] [place] [address] 10/10/2022 Office Visit Surgery Lesly Celaya MD [address] [place] [address] Ninoska Flowers PA-Ynes [address] [place] [address] 10/10/2022 Surgery Surgery Lesly Celaya, EXCISION, MASSES - MD back, abdomen, [address] right [place] [address] 10/11/2022 Virtual Visit Pharm Clari Stoll, [address] 9[address] 10/14/2022 Appointment Speech Therapy Anabel Chew, TOE FORMER [facility] 516 [facility] 396 [place] [address] 10/21/2022 Office Visit Pulmonology Obdulio Barrera MD 420 [facility] 276 [place], [place] [address] 10/25/2022 PRE VISIT ENT Charo Burton MD Previsit 909 [place] [address] 10/25/2022 Office Visit ENT Charo Burton MD 909 [place] [address] 10/25/2022 Office Visit ENT Provider, 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 Cake Decorator 10/28/2022 Appointment Speech Therapy Anabel Chew, TOE FORMER [address] [address] 11/17/2022 Appointment Speech Therapy Anabel Chew, TOE FORMER [address] [address] 12/23/2022 Office Visit Neurology Colby Yeung MD [address] [place] [address] Scheduled Procedures Name Priority Associated Diagnoses Date/Time EXCISION, MASS, TORSO Lipoma of skin and subcuta neous 10/10/2022 7:30 AM BUILDING CONSTRUCTION CONTRACTOR tissue documented as of this encounter Visit Diagnoses Not on filedocumented in this encounter Additional Health Concerns Assessment Noted Time PHQ-9 Depression Total Score: 16 03/25/2022 7:29 AM CD T documented as of this encounter Care Teams Ships Equipment Engineer Relationship Specialty Start Date End Date Aydee Burton, PCP - General Nurse Practitioner - 05/17/21 TOWER FOREMAN BRADLEY LINEBACKER CREWMEMBER Family [address] [place] [address] [phone] Aydee Burton, Assigned PCP 04/28/21 TOWER FOREMAN BRADLEY LINEBACKER CREWMEMBER [address] [place] [phone] Louisa Hood, Assigned Neuroscience 07/11/21 TOWER FOREMAN BRADLEY LINEBACKER CREWMEMBER Provider 500 [place], [place] 239185 Se Levy, Lead Personal Computer Network Engineer 08/05/21 05/12/22 Clari Francois Pharmacist Pharmacist 08/06/21 06/07/22 Jocelyn [facility] [address] [place] [address] [place], Assigned Sleep 08/01/21 Angel Turcios, Provider [address] [place] [address] Lesly Celaya MD Assigned Surgical 09/05/21 [address] [facility] [place] [address] Tawana Patel [facility] 09/30/21 Worker Ramses Mcpherson Assigned OBGYN 11/07/21 MD Onesimo Provider [address] [place] [address] Obdulio Barrera MD Critical Care 01/24/[address] [place] [address] [phone] Obdulio Barrera, Tone Pulmonology 02/06/[address] [place] [address] Lesvia Stanley EP Cardiac Rehabilitation 03/03/22 03/03/23 [facility] Therapist [address] [address] Marilia Deluna, PhD Assigned Behavioral 02/20/22 [address] [facility] Provider [place], [place] [phone] Niyah Decker, [facility] Pharmacist Pharmacist 03/07/22 [address] [facility] 812 [place] [address] Clari Poole, Pharmacist Pharmacist 03/07/22 06/15/22 [facility] [address] [facility] [address] [place] [address] Lesvia Stanley EP Cardiac Rehabilitation 03/17/22 03/17/23 [facility] Therapist [address] [place] [place] [address] Clari Ruiz Assigned [facility] 04/09/22 05/27/22 Jocelyn [facility] Pharmacist [address] [place], [place] [phone] Mago Swift, [facility] Lead Personal Computer Network Engineer Second Worker - 08/05/21 Clinical documented as of this encounter
--- OUTSIDE RECORDS SUMMARY | 2022-09-21 04:04 | XMS_ITS | Encounter Summary ---
:1980 Author Organization [facility] Address [address] [place] [address] Care Team Providers Name Role Phone Aydee Burton NON CATEGORICAL PRESCHOOL TEACHER OIL WELL GUN PERFORATOR OPERATOR Primary Care Provider [phone] Aydee Burton NON CATEGORICAL PRESCHOOL TEACHER OIL WELL GUN PERFORATOR OPERATOR Unavailable [phone] Louisa Hood NON CATEGORICAL PRESCHOOL TEACHER OIL WELL GUN PERFORATOR OPERATOR Unavailable [phone] Se Levy [facility] Unavailable Unavailable Clari Ruiz [facility] Unavailable [phone] Angel Hannah MD Unavailable Lesly Celaya MD Unavailable Tawana Patel MA Unavailable Unavailable Ramses Mcpherson MD Unavailable [phone] Obdulio Barrera MD Unavailable [phone] Obdulio Barrera MD Unavailable [phone] Lesvia Stanley Unavailable Marilia Deluna PhD Unavailable Niyah Decker [facility] Unavailable Clari Poole [facility] Unavailable Lesvia Stanley Unavailable JosephClari jay [facility] Unavailable Mago Swift [facility] Unavailable Reason for Visit Rehab Therapy Cardiac Therapy (Routine: Next available opening) - Authorized Specialty Diagnoses / Procedures Referred By Contact Refer red To Contact CARDIAC REHAB Diagnoses Asthma SOB (shortness of breath) [place] [id number] [facility] [place] [address] Phone: Referral ID Status Reason Start Date Expiration Date Visits V isits Requested Authorized [id number] Authorized 11/13/2021 11/12/2022 365 365 Encounter Details Date Type Department Care Team Description 04/14/2022 Hospital Encounter [facility] Ezequiel Barrera MD 420 [facility] 276 [place] [address] Cardiac and Pulmonary 1, Rh Pulmonary Rehab Rehabilitation [address] [place] [address] Social History Tobacco Use Types [...] er 08/05/2021 How often do you attend cheondoism or baptism services? Never 08/05/2021 Do you belong to any clubs or organizations such as cheondoism N o 08/05/2021 groups, unions, fraternal or [...] at Date Recorded Female 11/09/2021 7:53 PM TECHNOLOGY TRAINER COVID-19 Exposure Response Date Recorded In the [...] Barrera MD 420 [facility] [address] [place], [place] [address] Anabel Chew, THERAPEUTIC RECREATION SPECIALIST [place] [id number] [facility] 396 [place], [place] [address] 09/27/2022 Therapy Visit Physical Therapy Luisana Watkins, PT [address] [place] [address] 09/29/2022 Virtual Visit Pain & Palliative Marilia Deluna Care PhD [address] [place] [address] 09/30/2022 Office Visit Family Practice Burton Aydee Mendez, NON CATEGORICAL PRESCHOOL TEACHER OIL WELL GUN PERFORATOR OPERATOR [address] [place], [place] [phone] 10/03/2022 Therapy Visit Physical Therapy David-Una Tang, PT [address] [place] [address] 10/10/2022 Hospital Encounter Surgery Lesly Celaya MD [address] [place] [address] 10/10/2022 Office Visit Surgery Lesly Celaya MD [address] [place] [address] Ninoska Flowers PA-Ynes [address] [place] [address] 10/10/2022 Surgery Surgery Lesly Celaya, EXCISION, MASSES - MD back, abdomen, [address] [place] [address] 10/11/2022 Virtual Visit Pharm Clari Stoll, [address] [address] 10/14/2022 Appointment Speech Therapy Anabel Chew, THERAPEUTIC RECREATION SPECIALIST [facility] [address] [facility] 396 [place] [address] 10/21/2022 Office Visit Pulmonology Obdulio Barrera MD 420 [facility] 276 [place], [place] [address] 10/25/2022 PRE VISIT ENT Charo Burton MD Previsit 909 [place] [address] 10/25/2022 Office Visit ENT Charo Burton MD [address] [place] [address] 10/25/2022 Office Visit ENT Provider, 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 Sr. Consultant 10/28/2022 Appointment Speech Therapy Anabel Chew, THERAPEUTIC RECREATION SPECIALIST [address] [address] 11/17/2022 Appointment Speech Therapy Anabel Chew, THERAPEUTIC RECREATION SPECIALIST [address] [address] 12/23/2022 Office Visit Neurology Colby Yeung MD [address] [place] [address] Scheduled Procedures Name Priority Associated Diagnoses Date/Time EXCISION, MASS, TORSO Lipoma of skin and subcuta neous 10/10/2022 7:30 AM TECHNOLOGY TRAINER tissue documented as of this encounter Visit Diagnoses Not on filedocumented in this encounter Additional Health Concerns Assessment Noted Time PHQ-9 Depression Total Score: 16 03/25/2022 7:29 AM CD T documented as of this encounter Care Teams Interventional Sale Consultant Relationship Specialty Start Date End Date Aydee Burton, PCP - General Nurse Practitioner - 05/17/21 NON CATEGORICAL PRESCHOOL TEACHER OIL WELL GUN PERFORATOR OPERATOR Family [address] [place] [address] [phone] Aydee Burton, Assigned PCP 04/28/21 NON CATEGORICAL PRESCHOOL TEACHER OIL WELL GUN PERFORATOR OPERATOR [address] [place] [address] [phone] Louisa Hood, Assigned Neuroscience 07/11/21 NON CATEGORICAL PRESCHOOL TEACHER OIL WELL GUN PERFORATOR OPERATOR Provider [address] [place], [place] 2184[address] Se Levy, Lead Manager Of Manufacturing 08/05/21 05/12/22 Clari Francois Pharmacist Pharmacist 08/06/21 06/07/22 Jocelyn [facility] [address] [place] [address] [place], Assigned Sleep 08/01/21 Angel Turcios, Provider [address] [place] [address] Lesly Celaya MD Assigned Surgical 09/05/21 [address] [facility] [place] [address] Tawana Patel [facility] 09/30/21 Worker Ramses Mcpherson Assigned OBGYN 11/07/21 MD Onesimo Provider [address] [place] [address] Obdulio Barrera MD Critical Care 01/24/[address] [place] [address] [phone] Obdulio Barrera, Tone Pulmonology 02/06/[address] [place] [address] [id number] Lesvia Stanley EP Cardiac Rehabilitation 03/03/22 03/03/23 [facility] Therapist [address] [address] Marilia Deluna, PhD Assigned Behavioral 02/20/22 [address] [facility] Provider [place], [place] [phone] Niyah Decker, [facility] Pharmacist Pharmacist 03/07/22 [address] [place] [address] [facility] 812 [place] [address] Clari Poole, Pharmacist Pharmacist 03/07/22 06/15/22 [facility] [address] [facility] [place] [address] Lesvia Stanley EP Cardiac Rehabilitation 03/17/22 03/17/23 [facility] Therapist [address] [place] [phone] Clari Ruiz Assigned [facility] 04/09/22 05/27/22 Jocelyn [facility] Pharmacist [address] [place], [place] [phone] Mago Swift, [facility] Lead Manager Of Manufacturing Asphalt Tamper - 08/05/21 Clinical documented as of this encounter
--- OUTSIDE RECORDS SUMMARY | 2022-09-21 04:04 | XMS_ITS | Encounter Summary ---
:1980 Author Organization [facility] Address [address] [place] [address] Care Team Providers Name Role Phone Aydee Burton RN REGISTRY TRADING ANALYST Primary Care Provider [phone] Adyee Burton RN REGISTRY TRADING ANALYST Unavailable [phone] Louisa Hood RN REGISTRY TRADING ANALYST Unavailable [phone] Se Levy [facility] Unavailable Unavailable Clari Ruiz [facility] Unavailable Angel Hannah MD Unavailable Lesly Celaya MD Unavailable Tawana Patel MA Unavailable Unavailable Ramses Mcpherson MD Unavailable [phone] Obdulio Barrera MD Unavailable [phone] Obdulio Barrera MD Unavailable [phone] Lesvia Stanley Unavailable Marilia Deluna PhD Unavailable Niyah Decker [facility] Unavailable Clari Poole [facility] Unavailable Lesvia Stanley EP Unavailable JamisonMago [facility] Unavailable Reason for Visit Rehab Therapy Cardiac Therapy (Routine: Next available opening) - Authorized Specialty Diagnoses / Procedures Referred By Contact Refer red To Contact CARDIAC REHAB Diagnoses Asthma SOB (shortness of breath) [address] [place] [address] Phone: Referral ID Status Reason Start Date Expiration Date Visits V isits Requested Authorized [id number] Authorized 11/13/2021 11/12/2022 365 365 Encounter Details Date Type Department Care Team Description 04/07/2022 Hospital Encounter [facility] Ezequiel Barrera MD 420 [facility] 276 [place] [address] Cardiac and Pulmonary 1, Rh Pulmonary Rehab Rehabilitation [address] [place] [address] Social History Tobacco Use Types [...] er 08/05/2021 How often do you attend mandaeism or adventism services? Never 08/05/2021 Do you belong to any clubs or organizations such as mandaeism N o 08/05/2021 groups, unions, fraternal or [...] Date Recorded Female 11/09/2021 7:53 PM FLIGHT READINESS TECHNICIAN COVID-19 Exposure Response Date Recorded In the last 10 days, have you been in contact with No / Unsu re 04/07/2022 12:43 PM CDT someone who was confirmed or [...] Obdulio Barrera MD 420 [facility] 276 [place], [place] [address] Anabel Chew, WEIGHT TESTER [address] [place], [place] [address] 09/27/2022 Therapy Visit Physical Therapy Luisana Watkins, PT [address] [place] [address] 09/29/2022 Virtual Visit Pain & Palliative Marilia Deluna, Ronald PhD [address] [place] [address] 09/30/2022 Office Visit Family Practice Aydee Burton, RN REGISTRY TRADING ANALYST [address] [place] [address] 10/03/2022 Therapy Visit Physical Therapy David-Una Tang, PT [address] [place] [phone] 10/10/2022 Hospital Encounter Surgery Lesly Celaya MD [address] [place], [place] [phone] 10/10/2022 Office Visit Surgery Lesly Celaya MD [address] [place] [address] Ninoska Flowers, PA-C [address] [place] [address] 10/10/2022 Surgery Surgery Lesly Celaya, EXCISION, MASSES - back, abdomen, [address] [place] [address] 10/11/2022 Virtual Visit Clari Su, [facility] [address] [place] [phone] [place], [place] [address] 10/14/2022 Appointment Speech Therapy Anabel Chew, WEIGHT TESTER [facility] 516 [facility] 396 [place], [place] [address] 10/21/2022 Office Visit Pulmonology Obdulio Barrera MD 420 [facility] 276 [place], [place] [address] 10/25/2022 PRE VISIT ENT Charo Burton MD Previsit 909 [place] [address] 10/25/2022 Office Visit ENT Charo Burton MD [address]09 [place], [place] [address] 10/25/2022 Office Visit ENT Provider, Jeannette 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 Marketing Proposal Coordinator 10/28/2022 Appointment Speech Therapy Anabel Chew, WEIGHT TESTER [address] [address] 11/17/2022 Appointment Speech Therapy Anabel Chew, WEIGHT TESTER [address] 86[address] 12/23/2022 Office Visit Neurology Colby Yeung MD [address] [place] [address]87[address] Scheduled Procedures Name Priority Associated Diagnoses Date/Time EXCISION, MASS, TORSO Lipoma of skin and subcuta neous 10/10/2022 7:30 AM FLIGHT READINESS TECHNICIAN tissue documented as of this encounter Visit Diagnoses Not on filedocumented in this encounter Additional Health Concerns Assessment Noted Time PHQ-9 Depression Total Score: 16 03/25/2022 7:29 AM CD T documented as of this encounter Care Teams Field Service Analyst Relationship Specialty Start Date End Date Aydee Burton, PCP - General Nurse Practitioner - 05/17/21 RN REGISTRY TRADING ANALYST Family [address] [place] [phone] Aydee Burton, Assigned PCP 04/28/21 RN REGISTRY TRADING ANALYST [address] [place] [address] [phone] Louisa Hood, Assigned Neuroscience 07/11/21 RN REGISTRY TRADING ANALYST Provider [address] [place] [address] [id number] Se Levy, Lead Testing Tech 08/05/21 05/12/22 Clari Francois Pharmacist Pharmacist 08/06/21 06/07/22 Jocelyn [facility] [address] [place] [address] [place], Assigned Sleep 08/01/21 Angel Turcios, Provider [address] [place] [address] Lesly Celaya MD Assigned Surgical 09/05/21 [address] [facility] [place] [address] Tawana Patel [facility] 09/30/21 Worker Ramses Mcpherson Assigned OBGYN 11/07/21 MD Onesimo Provider [address] [place] [address] Obdulio Barrera MD Critical Care 01/24/[address] [place] [address] 276 [place] [address] Obdulio Barrera, Assigned Pulmonology 02/06/[address] [place] [address] 276 [place] [address] Lesvia Stanley EP Cardiac Rehabilitation 03/03/22 03/03/23 [facility] Therapist [address] [place] [phone] Marilia Deluna, PhD Assigned Behavioral 02/20/22 [address] [facility] Provider [place], [place] [phone] Niyah Decker, [facility] Pharmacist Pharmacist 03/07/22 420 [facility] 812 [place] [address] Clari Poole, Pharmacist Pharmacist 03/07/22 06/15/22 [facility] [address] [facility] [place] [phone] Lesvia Stanley EP Cardiac Rehabilitation 03/17/22 03/17/23 [facility] Therapist [address] [address] Mago Swift, SPORTS ATHLETIC TRAINER Lead Testing Tech Fourdrinier Tender - 08/05/21 Clinical documented as of this encounter
--- OUTSIDE RECORDS SUMMARY | 2022-09-21 04:04 | XMS_ITS | Encounter Summary ---
:1980 Author Organization [facility] Address [address] [place] [address] Care Team Providers Name Role Phone Aydee Burton MANAGER ERP PATENT CLERK Primary Care Provider [phone] Aydee Burton MANAGER ERP PATENT CLERK Unavailable [phone] Louisa Hood MANAGER ERP PATENT CLERK Unavailable [phone] Se Levy [facility] Unavailable Unavailable Clari Ruiz [facility] Unavailable Angel Hannah MD Unavailable Lesly Celaya MD Unavailable Tawana Patel MA Unavailable Unavailable Ramses Mcpherson MD Unavailable [phone] Obdulio Barrera MD Unavailable [phone] Obdulio Barrera MD Unavailable [phone] Lesvia Stanley Unavailable Marilia Deluna PhD Unavailable Niyah Decker [facility] Unavailable Clari Poole [facility] Unavailable Lesvia Stanley Unavailable JamisonMago [facility] Unavailable Encounter Details Date Type Department Care Team Description 04/07/2022 Travel Social History Tobacco Use Types Packs/Day [...] er 08/05/2021 How often do you attend adventism or confucianist services? Never 08/05/2021 Do you belong to any clubs or organizations such as adventism N o 08/05/2021 groups, unions, fraternal or [...] at Date Recorded Female 11/09/2021 7:53 PM J2EE PROGRAMMER COVID-19 Exposure Response Date Recorded In the last 10 days, have you been in contact with No / Unsu re 04/07/2022 12:43 PM CDT someone who was confirmed or suspected to have Coronavirus/COVID-19? documented as of this encounter Plan of Treatment Upcoming Encounters Date Type Specialty Care Team Description 09/26/2022 Appointment Speech Therapy Obdulio Barrera MD 420 [facility] 276 [place] [address] Anabel Chew, SKILLED NURSING FACILITY COUNSELOR [facility] 516 [facility] 396 [place] [address] 09/27/2022 Therapy Visit Physical Therapy Luisana Waktins, PT [address] [place] [address] 09/29/2022 Virtual Visit Pain & Palliative Marilia Deluna, Care PhD [address] [place] [address] 09/30/2022 Office Visit Family Practice Aydee Burton, MANAGER ERP [facility] [address] [place] [address] [phone] 10/03/2022 Therapy Visit Physical Therapy Una Reardon, PT 2[address] [place] [phone] 10/10/2022 Hospital Encounter Surgery Lesly Celaya MD [address] [place], [place] [address] 10/10/2022 Office Visit Surgery Lesly Celaya MD [address] [place] [address] Ninoska Flowers PA-C [address] [place] [address] 10/10/2022 Surgery Surgery Lesly Celaya, EXCISION, MASSES - MD back, abdomen, [address] extremity [place], [place] [phone] 10/11/2022 Virtual Visit Clari Su, [facility] [address] [place] [address] 10/14/2022 Appointment Speech Therapy Anabel Chew, SKILLED NURSING FACILITY COUNSELOR [address] [address] 10/21/2022 Office Visit Pulmonology Obdulio Barrera MD [address] [address] 10/25/2022 PRE VISIT ENT Charo Burton MD Previsit 9 [place], [place] [address] 10/25/2022 Office Visit ENT Charo Burton MD 909 [place], [place] [address] 10/25/2022 Office Visit ENT Provider, 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 Plate Hanger 10/28/2022 Appointment Speech Therapy Anabel Chew, SKILLED NURSING FACILITY COUNSELOR [address] [address] 11/17/2022 Appointment Speech Therapy Anabel Chew, SKILLED NURSING FACILITY COUNSELOR [address] [address] 12/23/2022 Office Visit Neurology Colby Yeung MD [address] [place] [address] Scheduled Procedures Name Priority Associated Diagnoses Date/Time EXCISION, MASS, TORSO Lipoma of skin and subcuta neous 10/10/2022 7:30 AM J2EE PROGRAMMER tissue documented as of this encounter Visit Diagnoses Not on filedocumented in this encounter Additional Health Concerns Assessment Noted Time PHQ-9 Depression Total Score: 16 03/25/2022 7:29 AM CD T documented as of this encounter Care Teams Drum Drier Operator Relationship Specialty Start Date End Date Aydee Burton, PCP - General Nurse Practitioner - 05/17/21 MANAGER ERP PATENT CLERK Family [address] [employer], [place] [phone] Aydee Burton, Assigned PCP 04/28/21 MANAGER ERP PATENT CLERK [address] [employer], [place] [phone] Louisa Hood, Assigned Neuroscience 07/11/21 MANAGER ERP PATENT CLERK Provider 500 [place] [address] Se Levy, Lead Cook Barbecue 08/05/21 05/12/22 Clari Francois Pharmacist Pharmacist 08/06/21 06/07/22 Jocelyn, [facility] [address] [place], [place] [phone] [place], Assigned Sleep 08/01/21 Angel Turcios, Provider [address] [place], [place] [phone] Lesly Celaya MD Assigned Surgical 09/05/21 [address] [place] [address] Tawana Patel MA [facility] 09/30/21 Worker Ramses Mcpherson Assigned OBGYN 11/07/21 MD Onesimo Provider [address] [place] [address] Obdulio Barrera MD Critical Care 01/24/22 420 [facility] [address] [place] [address] Obdulio Barrera, Assigned Pulmonology 02/06/22 MD Provider 420 [facility] 276 [place], [place] [address] Lesvia Stanley, GHADA Cardiac Rehabilitation 03/03/22 03/03/23 [facility] Therapist [address] [id number] Marilia Deluna, PhD Assigned Behavioral 02/20/22 [address] [facility] [place] [address] Niyah Decker, [facility] Pharmacist Pharmacist 03/07/22 420 [facility] 812 [place] [address] Clari Poole, Pharmacist Pharmacist 03/07/22 06/15/22 [facility] [address] [facility] [address] [place] [phone] Lesvia Stanley, GHADA Cardiac Rehabilitation 03/17/22 03/17/23 [facility] Therapist [address] [address] Mago Swift, [facility] Lead Cook Barbecue Quality Assurance Associate - 08/05/21 Clinical documented as of this encounter
--- OUTSIDE RECORDS SUMMARY | 2022-09-21 04:04 | XMS_ITS | Encounter Summary ---
:1980 Author Organization [place] Address [address] [place] [address] Care Team Providers Name Role Phone Aydee Burton FIELD SAMPLING TECHNICIAN STORE CASHIER Primary Care Provider [phone] Aydee Burton FIELD SAMPLING TECHNICIAN STORE CASHIER Unavailable [phone] Louisa Hood FIELD SAMPLING TECHNICIAN STORE CASHIER Unavailable [phone] Se Levy [facility] Unavailable Unavailable Clari Ruiz [facility] Unavailable Angel Hannah MD Unavailable Lesly Celaya MD Unavailable Tawana Patel MA Unavailable Unavailable Ramses Mcpherson MD Unavailable [phone] Obdulio Barrera MD Unavailable [phone] Obdulio Barrera MD Unavailable [phone] Lesvia Stanley Unavailable Marilia Deluna PhD Unavailable Niyah Decker [facility] Unavailable Clari Poole [facility] Unavailable Lesvia Stanley Unavailable Clari Ruiz Jocelyn [facility] Unavailable [phone] Mago Swift [facility] Unavailable Encounter Details Date Type Department Care Team Description 04/07/2022 Virtual Visit [facility] Marilia Deluna Bil ateral occipital neuralgia (Primary Dx); Pain Management PhD Upper back pain; [address] Chronic tension-type headache, not intra ctable [address] [place], [place] [address] [address] [place] [address] Social History Tobacco Use Types [...] er 08/05/2021 How often do you attend buddhist or cheondoism services? 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 documented as of this encounter Progress Notes MikieCeciMarilia B - 04/07/2022 3:00 PM CDT Marta Hill is a [...] invitation sent by: Text to cell phone: .[phone]} Video Start Time: 3:00 PM Additional provider notes: Pain Diagnoses per pain provider: Bilateral occipital neuralgia ?? Upper back pain ?? Chronic tension-type headache, not intractable DATA: During today's visit you reported the following: Your headache pain is variable - at times unable to engage in activities due to pain. Shoulders and neck have continued to be painful. Your mood is still occasionally angry - tend to isolate then which leads to feeling down. Your activity level remains stable. Your stress level is much higher - finances, no answer for speech concerns, knee 'crunches' and is painful. Your need for sleep is greatly increased. You reported engaging in self-care foryour pain 1-2 times daily. You identified that you would like to focus on the following or had questions regarding the following issues or concerns, and we discussed the following: - frustrated no answer yet about speech since hysterectomy - still unable to return to work due to pulmonary issues and lifting issues - work needs workability weekly - currently on JOSELYN - worry thoughts about future - continuing to navigate co-parenting with ex- which can be frustrating ASSESSMENT: Continues to work on pacing activity, recognizing this is a learning curve given how persistent pulmonary issues are interfering. Pain continues to be variable, which is likely contributingto occasional anger or irritability. PLAN: Your next appointment is scheduled for 05/11 at 8:00 AM. Assignment/Objectives /interventions for next session: - keep pacing activity We believe regular attendance is miranda to your success in our program! ?? Any time you are unable to keep your appointment we ask that you call us at [phone] at least24 hours in advance to cancel.This will allow us to offer the appointment time to another patient. ?? Multiple missed appointments may lead to dismissal from the clinic. Video-Visit Details Type of service: Video Visit Video End Time (time video stopped): 3:41 PM Originating Location (pt. Location): Home Distant Location (provider location): [facility] Mode of Communication: Video Conference via [facility] Marilia Deluna PsyD LP Licensed Psychologist Outpatient Clinic Therapist [facility] Pain Management documented in this encounter Plan of Treatment Upcoming Encounters Date Type Specialty Care Team Description 09/26/2022 Appointment Speech Therapy Obdulio Barrera MD [address] [facility] [address] [place], [place] [address] Anabel Chew, CAMPAIGN ANALYST [facility] [address] [facility] 396 [place] [address] 09/27/2022 Therapy Visit Physical Therapy Luisana Watkins, PT [address] [place] [address] 09/29/2022 Virtual Visit Pain & Palliative Marilia Deluna, Care PhD [address] [place], [place] [address] 09/30/2022 Office Visit Family Practice Aydee Burton, FIELD SAMPLING TECHNICIAN STORE CASHIER [address] [place], [place] [phone] 10/03/2022 Therapy Visit Physical Therapy Una Reardon, PT [address] [place] [address] 10/10/2022 Hospital Encounter Surgery Lesly Celaya MD [address] [place] [address] 10/10/2022 Office Visit Surgery Lesly Celaya MD [address] [place] [address] Ninoska Flowers, PA-C [address] [place] [address] 10/10/2022 Surgery Surgery Lesly Celaya, EXCISION, MASSES - MD back, abdomen, [address] [place] [address] 10/11/2022 Virtual Visit Clari Su, [place] [id number] [address] [address] 10/14/2022 Appointment Speech Therapy Anabel Chew, CAMPAIGN ANALYST [facility] [address] [facility] 396 [place], [place] [address] 10/21/2022 Office Visit Pulmonology Obdulio Barrera MD [address] [facility] 276 [place], [place] [address] 10/25/2022 PRE VISIT Charo Carter MD Previsit 909 [place], [place] [address] 10/25/2022 Office Visit Charo Catrer MD [address]09 [place] [address] 10/25/2022 Office Visit ENT Provider, Jeannette 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 Ambulance Driver 10/28/2022 Appointment Speech Therapy Anabel Chew, CAMPAIGN ANALYST [address] [address] 11/17/2022 Appointment Speech Therapy Anabel Chew CAMPAIGN ANALYST [address] [address] 12/23/2022 Office Visit Neurology Colby Yeung MD [address] [place] [address] Scheduled Procedures Name Priority Associated Diagnoses Date/Time EXCISION, MASS, TORSO Lipoma of skin and subcuta neous 10/10/2022 7:30 AM FAST FOOD WORKER tissue documented as of this encounter Procedures Procedure Name Priority Date/Time Associated Diagnosis Comme nts [facility] Routine 04/07/2022 3:45 PM CDT Bilateral oc cipital INTERVENTION, [...] documented as of this encounter Care Teams Plant And Maintenance Technician Relationship Specialty Start Date End Date Aydee Burton, PCP - General Nurse Practitioner - 05/17/21 FIELD SAMPLING TECHNICIAN STORE CASHIER Family [address] [place] [address] Aydee Burton, Assigned PCP 04/28/21 FIELD SAMPLING TECHNICIAN STORE CASHIER [address] [place], [place] [address] Louisa Hood, Assigned Neuroscience 07/11/21 FIELD SAMPLING TECHNICIAN STORE CASHIER Provider [address] [place], [place] [address] Se Levy, Lead Education Specialist 08/05/21 05/12/22 CNC LATHE MACHINE OPERATORClari Ordonez Pharmacist Pharmacist 08/06/21 06/07/22 [facility] [address] [place], [place] [address] [place], Assigned Sleep 08/01/21 Angel Turcios, Provider [address] [place], [place] [address] Lesly Cleaya MD Assigned Surgical 09/05/21 [address] [facility] Provider [place], [place] [address] Tawana Patel [facility] 09/30/21 Worker Ramses Mcpherson Assigned OBGYN 11/07/21 MD Onesimo Provider [address] [place], [place] [address] Obdulio Barrera MD Critical Care 01/24/[address] [place] [address] Obdulio Barrera, Assigned Pulmonology 02/06/[address] [place] [id number] Lesvia Stanley EP Cardiac Rehabilitation 03/03/22 03/03/23 [facility] Therapist [address] [place] [address] Marilia Deluna, PhD Assigned Behavioral 02/20/22 [address] [facility] Health Provider [place], [place] [phone] Niyah Decker, [facility] Pharmacist Pharmacist 03/07/22 [address] [facility] 812 [place], [place] [address] Clari Poole, Pharmacist Pharmacist 03/07/22 06/15/22 [facility] [address] [facility] [place] [address] Lesvia Stanley, GHADA Cardiac Rehabilitation 03/17/22 03/17/23 [facility] Therapist [address] [place] [address] Clari Ruiz Assigned [place] 04/09/22 05/27/22 Jocelyn [facility] Pharmacist [address] [place] [address] Mago Swift, [facility] Lead Education Specialist Embedded Developer - 08/05/21 Clinical documented as of this encounter
--- OUTSIDE RECORDS SUMMARY | 2022-09-21 04:05 | XMS_ITS | Encounter Summary ---
:1980 Author Organization [facility] Address [address] [place] [address] Care Team Providers Name Role Phone Aydee Burton LACE PINNER SORTER UPHOLSTERY PARTS Primary Care Provider [phone] Aydee Burton LACE PINNER S[employer]TER [employer]PH[employer]ST[employer]S Unavailable [phone] Louisa Hood [employer]ACE PINNER [employer] Unavailable [phone] Se Levy [facility] Unavailable Unavailable Clari Ruiz [facility] Unavailable Angel Hannah MD Unavailable Lesly Celaya MD Unavailable Tawana Patel MA Unavailable Unavailable Ramses Mcpherson MD Unavailable [phone] Obdulio Barrera MD Unavailable [phone] Obdulio Barrera MD Unavailable Lesvia Stanley Unavailable Marilia Deluna PhD Unavailable Niyah Decker [facility] Unavailable Clari Poole [facility] Unavailable Lesvia Stanley EP Unavailable Jamison Mago Terri [facility] Unavailable Reason for Visit Reason Onset Date Comments Patient Request for Note/Letter 04/01/2022 Encounter Details Date Type Department Care Team Description 04/01/2022 [facility]phone [facility] [place] ELADIO Mendez CNP Note/Letter [address] [facility] [address] [place] [address] [place], [place] [phone] (Wo rk) [address] [phone] Social History Tobacco Use Types Packs/Day Years [...] er 08/05/2021 How often do you attend jainism or sabianism services? 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 documented as of this encounter Miscellaneous Notes Telephone Encounter - Ziyad Frausto - 04/01/2022 11:22 AM CDT Patient has been notified that letter has been completed. Contacted ENT to retreive medical records for patient. Ziyad Frausto Plastic Machine Operator Telephone Encounter - Aydee Burton APRN CNP - 04/01/2022 10:45 AM CDT Images from the original note were not included. Note done for 8 hours shifts with breaks and lifting restrictions its in her mychart. Please help her set up Follow up virtual is fine 04/08/22. Can I please also get records from her ENT and production control supervisor. MARINO Spivey Telephone Encounter - SandeepZiyad johnson - 04/01/2022 10:18 AM CDT Reason for Call: Other Letter Detailed comments: Patient calling requesting another letter for work. She states she will need it as she's still not back at work and wont be. She's unsure of what the specifics are that need to be listed, but it could be similar to the last note only date change. She did see ENT on 03/31/22 and the allergen on 03/29/22. She's waiting to be scheduled for the CT of her sinuses as they think she might possibly have laryngitis. She needs the letter sent in by 04/04/22. Patient is aware Aydee is not in office and this may or may not be able to be completed by another colleague in the meantime. Please advise. Phone Number Patient can be reached at: Cell number on file: Telephone Information: Best Time: Any Can we leave a detailed message on this number? YES Call taken on 04/01/2022 at 10:19 AM by Ziyad Frausto documented in this encounter Plan of Treatment Upcoming Encounters Date Type Specialty Care Team Description 09/26/2022 Appointment Speech Therapy Obdulio Barrera MD [address] [facility] 276 [place], [place] [address] Anabel Chew, ROTARY DRUM TANNER [address] [place], [place] [address] 09/27/2022 Therapy Visit Physical Therapy Luisana Watkins, PT [address] [place] [address] 09/29/2022 Virtual Visit Pain & Palliative Marilia Deluna, Care PhD [address] [place] [address] 09/30/2022 Office Visit Family Practice Aydee Burton, LACE PINNER SORTER UPHOLSTERY PARTS [address] [place], [place] [phone] 10/03/2022 Therapy Visit Physical Therapy Una Reardon, PT [address] [place] [address] 10/10/2022 Hospital Encounter Surgery Lesly Celaya MD [address] [place], [place] [address] 10/10/2022 Office Visit Surgery Lesly Celaya MD [address] [place], [place] [address] Kulas, Ninoska Felicitas, PA-C [address] [place] [address] 10/10/2022 Surgery Surgery Lesly Celaya, EXCISION, MASSES - MD back, abdomen, [address] [place] [address] 10/11/2022 Virtual Visit Clari Su, [facility] [address] [address] 10/14/2022 Appointment Speech Therapy Anabel Chew, ROTARY DRUM TANNER [address] [address] 10/21/2022 Office Visit Pulmonology Obdulio Barrera MD [address] [phone] 10/25/2022 PRE VISIT ENT Charo Burton MD Previsit [address]09 [place], [place] [address] 10/25/2022 Office Visit ENT Charo Burton MD [address] [place], [place] [address] 10/25/2022 Office Visit ENT Provider, 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 Cloth Folder Hand 10/28/2022 Appointment Speech Therapy Anabel Chew, ROTARY DRUM TANNER [address] [address] 11/17/2022 Appointment Speech Therapy Anabel Chew, ROTARY DRUM TANNER [address] [address] 12/23/2022 Office Visit Neurology Colby Yeung MD [address] [place], [place] [address] Scheduled Procedures Name Priority Associated Diagnoses Date/Time EXCISION, MASS, TORSO Lipoma of skin and subcuta neous 10/10/2022 7:30 AM FUEL OIL CLERK tissue documented as of this encounter Visit Diagnoses Not on filedocumented in this encounter Additional Health Concerns Assessment Noted Time PHQ-9 Depression Total Score: 16 03/25/2022 7:29 AM CD T documented as of this encounter Care Teams Orthotist Prosthetist Relationship Specialty Start Date End Date Aydee Burton, PCP - General Nurse Practitioner - 05/17/21 LACE PINNER SORTER UPHOLSTERY PARTS Family [address] [place] [address] Aydee Burton, Assigned PCP 04/28/21 LACE PINNER [employer]OR[employer]PHOL[employer]S [address] [place] [address] Louisa Hood, Assigned Neuroscience 07/11/21 LACE [employer] Provider 500 [place] [address] Se Levy, Lead Hris Specialist 08/05/21 05/12/22 Clari Francois Pharmacist Pharmacist 08/06/21 06/07/22 Jocelyn [facility] [address] [place] [address] [place], Assigned Sleep 08/01/21 Angel Turcios, Provider [address] [place] [address] Lesly Celaya MD Assigned Surgical 09/05/21 [address] Provider [place], [place] [phone] Tawana Patel MA [facility] 09/30/21 Worker Ramses Mcpherson Assigned OBGYN 11/07/21 MD Onesimo Provider [address] [place], [place] [address] Obdulio Brarera MD Critical Care 01/24/[address] [place] [address] 276 [place], [place] [address] Obdulio Barrera, Assigned Pulmonology 02/06/22 MD Provider [address] [place] [address] 276 [place], [place] [address] Lesvia Stanely, GHADA Cardiac Rehabilitation 03/03/22 03/03/23 [facility] Therapist [address] [place] [address] Marilia Deluna, PhD Assigned Behavioral 02/20/22 [address] [facility] [place] [address] Niyah Decker, [facility] Pharmacist Pharmacist 03/07/[address] [place] [address] 8[address] [place], [place] [address] Clari Poole, Pharmacist Pharmacist 03/07/22 06/15/22 [facility] [address] [facility] [address] [place] [phone] Lesvia Stanley, GHADA Cardiac Rehabilitation 03/17/22 03/17/23 [facility] Therapist [address] [place] [address] Mago Swift, [facility] Lead Hris Specialist Productivity Engineer - 08/05/21 Clinical documented as of this encounter
--- OUTSIDE RECORDS SUMMARY | 2022-09-21 04:05 | XMS_ITS | Encounter Summary ---
:1980 Author Organization [facility] Address [address] [place] [address] Care Team Providers Name Role Phone Aydee Burton TRAILER ASSEMBLER MOLD WORKER Primary Care Provider [phone] Aydee Burton TRAILER ASSEMBLER MOLD WORKER Unavailable [phone] Louisa Hood TRAILER ASSEMBLER MOLD WORKER Unavailable [phone] Se Levy [facility] Unavailable Unavailable Clari Ruiz [facility] Unavailable Angel Hannah MD Unavailable Lesly Celaya MD Unavailable Tawana Patel MA Unavailable Unavailable Ramses Mcpherson MD Unavailable [phone] Obdulio Barrera MD Unavailable [phone] Obdulio Barrera MD Unavailable [phone] Lesvia Stanley Unavailable Marilia Deluna PhD Unavailable Niyah Decker [facility] Unavailable Clari Poole [facility] Unavailable Lesvia Stanley EP Unavailable JosephClari jay [facility] Unavailable TimmyNiyah RN Unavailable Delia Avila [facility] Unavailable [phone] [place], Delia Leal [facility] Unavailable [phone] Niyah Decker [facility] Unavailable Mago Swift [facility] Unavailable Lorireggievictorino Niyah Vania [facility] Unavailable Leela Jarvis [facility] Unavailable SchwreggievictorinoNiyah Vania [facility] Unavailable Reason for Visit Reason Comments Medication Refill Encounter Details Date Type Department Care Team Description 04/03/2022 Refill [facility] Medication Refill Clayton Iftikhar Alfred MD [address] [facility] [address] [facility] [address] [place] [address] [place], [place] [address]235 (Wo rk) Social History Tobacco Use Types [...] you get together with friends or relatives? Neel er 08/05/2021 How often do you attend orthodox or spiritism services? Never 08/05/2021 Do you [...] at Date Recorded Female 11/09/2021 7:53 PM DELIVERY MGR COVID-19 Exposure Response Date Recorded In the last 10 days, have you been in contact with No / Unsu re 04/05/2022 2:00 PM CDT someone who was confirmed or suspected to have Coronavirus/COVID-19? documented as of this encounter Miscellaneous Notes Telephone Encounter - Amparo Fay RN - 04/05/2022 2:21 PM CDT Routing refill request to provider for review/approval because: Refill request from acute sickness script on 03/08/2022 Amparo Fay RN [facility] documented in this encounter Plan of Treatment Upcoming Encounters Date Type Specialty Care Team Description 09/26/2022 Appointment Speech Therapy Obdulio Barrera MD [address] [facility] 276 [place] [address] Anabel Chew, AURICULAR DETOXIFICATION SPECIALIST [place] 814056 [facility] 396 [place] [address] 09/27/2022 Therapy Visit Physical Therapy Luisana Watkins, PT [address] [place] [address] 09/29/2022 Virtual Visit Pain & Palliative Marilia Deluna, [facility] PhD [address] [place] [address] 09/30/2022 Office Visit Family Practice Aydee Burton, TRAILER ASSEMBLER MOLD WORKER [address] [place], [place] [address]142 10/03/2022 Therapy Visit Physical Therapy David-Una Tang, PT [address] [place] [address] 10/10/2022 Hospital Encounter Surgery Lesly Celaya MD [address] [place] [address] 10/10/2022 Office Visit Surgery Lesly Celaya MD [address] [place] [address] Ninoska Flowers PA-C [address] [place] [address] 10/10/2022 Surgery Surgery Lesly Celaya, EXCISION, MASSES - back, abdomen, [address] right lower [facility] [place] [address] 10/11/2022 Virtual Visit Clari Su, [facility] [address] [id number] [place], [place] [address]24 10/14/2022 Appointment Speech Therapy Anabel Chew, AURICULAR DETOXIFICATION SPECIALIST [place] 814056 [facility] 396 [place] [address] 10/21/2022 Office Visit Pulmonology Obdulio Barrera MD [address] [facility] 276 [place] [address] 10/25/2022 PRE VISIT ENT Charo Burton MD Previsit [address] [place] [address] 933895 10/25/2022 Office Visit ENT Charo Burton MD [address] [place] [address] 165565 10/25/2022 Office Visit ENT Provider, 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 Wire Photo Operator 10/28/2022 Appointment Speech Therapy Anabel Chew, AURICULAR DETOXIFICATION SPECIALIST [address] [address] 11/17/2022 Appointment Speech Therapy Anabel Chew AURICULAR DETOXIFICATION SPECIALIST [address] 882215 12/23/2022 Office Visit Neurology Colby Yeung MD [address] [place] [address] Scheduled Procedures Name Priority Associated Diagnoses Date/Time EXCISION, MASS, TORSO Lipoma of skin and subcuta neous 10/10/2022 7:30 AM DELIVERY MGR tissue documented as of this encounter Visit Diagnoses Diagnosis SOB (shortness of breath) Shortness of breath Lipoma of skin and subcutaneous tissue Lipoma of other skin and subcutaneous ti ssue documented in this encounter Additional Health Concerns Infection Onset Date Last Indicated Resolved Time Rule Out Pertussis 04/05/2022 04/05/2022 04/06/2022 10 :34 AM CDT Assessment Noted Time PHQ-9 Depression Total Score: 16 03/25/2022 7:29 AM CD T documented as of this encounter Care Teams Stable Hand Relationship Specialty Start Date End Date Aydee Burton, PCP - General Nurse Practitioner - 05/17/21 TRAILER ASSEMBLER MOLD WORKER Family [address] [place] [address] Aydee Burton, Assigned PCP 04/28/21 TRAILER ASSEMBLER MOLD WORKER [address] [place], [place] [phone] Louisa Hood Grisel, Assigned Neuroscience 07/11/21 TRAILER ASSEMBLER MOLD WORKER Provider [address] [place], [place] [phone] Se Levy, Lead Us Customs And Border Officer 08/05/21 05/12/22 [facility] Clari Ruiz Pharmacist Pharmacist 08/06/21 06/07/22 [facility] [address] [place], [place] [phone] [place], Assigned Sleep 08/01/21 Angel Turcios, Provider [address] [place] [address] Lesly Celaya MD Assigned Surgical 09/05/21 [address] Provider [place], [place] [phone] Tawana Patel MA Count Includes [facility] 09/30/21 Worker Ramses Mcpherson Assigned OBGYN 11/07/21 MD Onesimo Provider [address] [place], [place] [phone] Obdulio Barrera MD Critical Care 01/24/[address] [phone] Obdulio Barrera, Tone Pulmonology 02/06/[address] 092235 Lesvia Stanley EP Cardiac Rehabilitation 03/03/22 03/03/23 [facility] Therapist [address] [place] [address] Marilia Deluna, PhD Assigned Behavioral 02/20/22 [address] [facility] [place] [address] Niyah Decker, [facility] Pharmacist Pharmacist 03/07/22 420 [facility] 812 [place] [address] Clari Poole, Pharmacist Pharmacist 03/07/22 06/15/22 [facility] [address] [facility] [address] [place], [place] [phone] Lesvia Stanley EP Cardiac Rehabilitation 03/17/22 03/17/23 [facility] Therapist [address] [place] 155065 Clari Ruiz Assigned MTM 04/09/22 05/27/22 Jocelyn [facility] Pharmacist [address] [place] [address] Niyah Warner, Lead Us Customs And Border Officer Primary Care - CC 06/27/22 RN Delia Avila, Pharmacist Pharmacist 06/07/22 [facility] 909 [place] [address] Delia Avila, Assigned MTM 06/11/2206/24 [facility] Pharmacist 909 [place] [address] Niyah Decker, [facility] Assigned MTM 05/28/22 06/10/22 420 [facility] 812 [place] [address] Mago Swift, [facility] Lead Us Customs And Border Officer Creative Perfumer - 08/05/21 Clinical Niyah Decker [facility] Assigned MTM 06/25/22 07/29/22 420 [facility] 812 [place] [address] Leela Jarvis [facility] Pharmacist 07/26/22 05/15/23 [address] [facility] [place] [address] Niyah Decker [facility] Assigned MTM 08/10/22 420 [facility] 812 [place] [address] documented as of this encounter
--- OUTSIDE RECORDS SUMMARY | 2022-09-21 04:05 | XMS_ITS | Encounter Summary ---
:1980 Author Organization [facility] Address [address] [place] [address] Care Team Providers Name Role Phone Aydee Burton PLANT HEALTH CARE TECHNICIAN MANAGER OF SALES Primary Care Provider [phone] Aydee Burton PLANT HEALTH CARE TECHNICIAN MANAGER OF SALES Unavailable [phone] Louisa Hood PLANT HEALTH CARE TECHNICIAN MANAGER OF SALES Unavailable [phone] Se Levy [facility] Unavailable Unavailable Clari Ruiz [facility] Unavailable [phone] Angel Hannah MD Unavailable Lesly Celaya MD Unavailable Tawana Patel MA Unavailable Unavailable Ramses Mcpherson MD Unavailable [phone] Obdulio Barrera MD Unavailable [phone] Obdulio Barrera MD Unavailable [phone] Lesvia Stanley Unavailable Marilia Deluna PhD Unavailable Niyah Decker [facility] Unavailable Clari Poole [facility] Unavailable Lesvia Stanley EP Unavailable Mago Swift [facility] Unavailable Reason for Visit Reason Comments acp Encounter Details Date Type Department Care Team Description 04/04/2022 Documentation Only Honoring Choices Luly [facility] [address] [facility] [address] [place] [address] Social History Tobacco Use Types Packs/Day Years [...] er 08/05/2021 How often do you attend confucianist or yarsanism services? Never 08/05/2021 Do you belong to any clubs or organizations such as confucianist N o 08/05/2021 groups, unions, fraternal or [...] at Date Recorded Female 11/09/2021 7:53 PM DROSSER COVID-19 Exposure Response Date Recorded In the last 10 days, have you been in contact with No / Unsu re 03/31/2022 11:55 AM CDT someone who was confirmed or suspected to have Coronavirus/COVID-19? documented as of this encounter Plan of Treatment Upcoming Encounters Date Type Specialty Care Team Description 09/26/2022 Appointment Speech Therapy Obdulio Barrera MD 420 [facility] 276 [place], [place] [address] Anabel Chew, SANFORIZING MACHINE OPERATOR [place] [phone] [facility] 396 [place], [place] [address]215 09/27/2022 Therapy Visit Physical Therapy Luisana Watkins, PT [address] [place] [address] 09/29/2022 Virtual Visit Pain & Palliative Marilia Deluna, Care PhD [address] [place], [place] 252067 09/30/2022 Office Visit Family Practice Aydee Burton, PL[employer] HE[employer] C[employer] TECHNICIAN MANAGER OF SALES [address] [place] [address] 158762 10/03/2022 Therapy Visit Physical Therapy Una Reardon, PT [address] [place] [address] 10/10/2022 Hospital Encounter Surgery Lesly Celaya MD [address] [place] [address] 10/10/2022 Office Visit Surgery Lesly Celaya MD [address] [place] [address] Ninoska Flowers PA-C [address] [facility] 300 [place], [place] [phone] 10/10/2022 Surgery Surgery Lesly Celaya, EXCISION, MASSES - MD back, abdomen, [address] [place] [address] 10/11/2022 Virtual Visit Clari Su, [facility] [address] [place] [address] 10/14/2022 Appointment Speech Therapy Anabel Chew, SANFORIZING MACHINE OPERATOR [address] [address] 10/21/2022 Office Visit Pulmonology Obdulio Barrera MD 420 [facility] 276 [place], [place] [address] 10/25/2022 PRE VISIT ENT Charo Burton MD Previsit [address] [place], [place] [address]35 10/25/2022 Office Visit ENT Charo Burton MD [address] [place], [place] 9[address]85 10/25/2022 Office Visit ENT Provider, 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 Sizing Machine Operator 10/28/2022 Appointment Speech Therapy Anabel Chew SLP [address] 424715 11/17/2022 Appointment Speech Therapy Anabel Chew SLP [address] 629165 12/23/2022 Office Visit Neurology Colby Yeung MD [address] [place] 969385 Scheduled Procedures Name Priority Associated Diagnoses Date/Time EXCISION, MASS, TORSO Lipoma of skin and subcuta neous 10/10/2022 7:30 AM DROSSER tissue documented as of this encounter Visit Diagnoses Not on filedocumented in this encounter Additional Health Concerns Assessment Noted Time PHQ-9 Depression Total Score: 16 03/25/2022 7:29 AM CD T documented as of this encounter Care Teams Pouring Crane Operator Relationship Specialty Start Date End Date Aydee Burton, PCP - General Nurse Practitioner - 05/17/21 PLANT HEALTH CARE TECHNICIAN MANAGER OF SALES Family [address] [place] [address] [phone] Aydee Burton, Assigned PCP 04/28/21 PLANT HEALTH CARE TECHNICIAN MANAGER OF SALES [address] [place] [address] Louisa Hood, Assigned Neuroscience 07/11/21 PLANT HEALTH CARE TECHNICIAN MANAGER OF SALES Provider [address] [place], [place] [phone] Se Levy, Lead Lead Recreation Assistant 08/05/21 05/12/22 Clari Francois Pharmacist Pharmacist 08/06/21 06/07/22 [facility] [address] [place], [place] [phone] [place], Assigned Sleep 08/01/21 Angel Turcios, Provider [address] [place], [place] [address] Lesly Celaya MD Assigned Surgical 09/05/21 [address] Provider [place], [place] [phone] Tawana Patel MA [facility] 09/30/21 Worker Ramses Mcpherson Assigned OBGYN 11/07/21 MD Onesimo Provider [address] [place], [place] [phone] Obdulio Barrera MD Critical Care 01/24/22 420 [facility] 276 [place], [place] 7[address] Obdulio Barrera, Assigned Pulmonology 02/06/22 MD Provider [address] [place] [address] 276 [place] [address] Lesvia Stanley, GHADA Cardiac Rehabilitation 03/03/22 03/03/23 [facility]OSP Therapist [address] [place] [address] Marilia Deluna, PhD Assigned Behavioral 02/20/22 [address] [facility] [place] [place] [address] Niyah Decker, [facility] Pharmacist Pharmacist 03/07/[address] [place] [address] 812 [place], [place] [address] Clari Poole, Pharmacist Pharmacist 03/07/22 06/15/22 [facility] [address] [facility] [address] [place], [place] [phone] Lesvia Stanley, GHADA Cardiac Rehabilitation 03/17/22 03/17/23 [facility] Therapist [address] [place] [address] Mago Swift, [facility] Lead Lead Recreation Assistant Channel Marketing Coordinator - 08/05/21 Clinical documented as of this encounter
--- OUTSIDE RECORDS SUMMARY | 2022-09-21 04:05 | XMS_ITS | Encounter Summary ---
:1980 Author Organization [facility] Address [address] [place] [address] Care Team Providers Name Role Phone Aydee Butron UPSET OPERATOR CHEMIST INTERNSHIP Primary Care Provider [phone] Aydee Burton UPSET OPERATOR CHEMIST INTERNSHIP Unavailable [phone] Louisa Hood UPSET OPERATOR CHEMI[employer] INTERNSHIP Unavailable [phone] Se Levy [facility] Unavailable Unavailable Clari Ruiz [facility] Unavailable [phone] Angel Hannah MD Unavailable Lesly Celaya MD Unavailable Tawana Patel MA Unavailable Unavailable Ramses Mcpherson MD Unavailable [phone] Obdulio Barrera MD Unavailable [phone] Obdulio Barrera MD Unavailable [phone] Lesvia Stanley Unavailable Marilia Deluna PhD Unavailable Niyah Decker [facility] Unavailable Clari Poole [facility] Unavailable Lesvia Stanley EP Unavailable JamisonMago [facility] Unavailable Reason for Visit Rehab Therapy Cardiac Therapy (Routine: Next available opening) - Authorized Specialty Diagnoses / Procedures Referred By Contact Refer red To Contact CARDIAC REHAB Diagnoses Asthma SOB (shortness of breath) [address] [address] Phone: Referral ID Status Reason Start Date Expiration Date Visits V isits Requested Authorized [id number] Authorized 11/13/2021 11/12/2022 365 365 Encounter Details Date Type Department Care Team Description 03/31/2022 Hospital Encounter [facility] Ezequiel Barrera MD 420 [facility] 276 [place] [address] Cardiac and Pulmonary 1, Rh Pulmonary Rehab Rehabilitation [address] [place] [address] Social History Tobacco Use Types [...] How often do you attend jew or protestant services? Never 08/05/2021 Do you [...] at Date Recorded Female 11/09/2021 7:53 PM ENTRY LEVEL PROGRAMMER COVID-19 Exposure Response Date Recorded In [...] (PROAIR Inhale 2 puffs into 18 g HFA/PROVENTIL the lungs every 4 HFA/VENTOLIN HFA) [...] At Bedtime 2 tablets - 120mg total ipratropium - albuterol Take 1 vial (3 [...] days; use 2 days after symptoms resolve. fluticasone (FLONASE) Reading 2 sprays into 18.2 mL 0 03/0804/05/2022 50 MCG/ACT nasal both nostrils daily sprayIndications: SOB (shortness of breath) gabapentin (NEURONTIN) 4 times daily 0 12/14/2021 [...] 2 times capsuleIndications: daily Chronic cough ondansetron Take 1 tablet (4 mg) 20 tablet 0 03/08/2022 (ZOFRAN-ODT) 4 MG ODT by mouth every 8 [...] Obdulio Barrera MD 420 [facility] 276 [place] [address] Anabel Chew, POMOLOGIST [place] 971636 [facility] 396 [place], [place] [address] 09/27/2022 Therapy Visit Physical Therapy Luisana Watkins, PT [address] [place] [address] 09/29/2022 Virtual Visit Pain & Palliative Marilia Deluna, Care PhD [address] [place] [address] 09/30/2022 Office Visit Family Practice Aydee Burton, UPSET OPERATOR CHEMIST INTERNSHIP 4[address] [place], [place] [address] 10/03/2022 Therapy Visit Physical Therapy David-Una Tang, PT [address] [place] [phone] 10/10/2022 Hospital Encounter Surgery Lesly Celaya MD [address] [place], [place] [address] 10/10/2022 Office Visit Surgery Lesly Celaya MD [address] [place] [address] Ninoska Flowers, FLORES-Ynes [address] [place] [address] 10/10/2022 Surgery Surgery Lesly Celaya, EXCISION, MASSES - MD back, abdomen, [address] right [place] [address] 10/11/2022 Virtual Visit Clari Su, [facility] [address] [phone] [place], [place] [address] 10/14/2022 Appointment Speech Therapy Anabel Chew, POMOLOGIST [facility] 516 [facility] 396 [place], [place] [address] 10/21/2022 Office Visit Pulmonology Obdulio Barrera MD 420 [facility] 276 [place], [place] [address] 10/25/2022 PRE VISIT ENT Charo Burton MD Previsit 909 [place] [address] 10/25/2022 Office Visit ENT Charo Burton MD 909 [place], [place] [address] 10/25/2022 Office Visit ENT Provider, Jeannette 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 Field Services Director 10/28/2022 Appointment Speech Therapy Anabel Chew, POMOLOGIST [address] [address] 11/17/2022 Appointment Speech Therapy Anabel Chew, POMOLOGIST [address] [address] 12/23/2022 Office Visit Neurology Colby Yeung MD [address] [place] [place] [address] Scheduled Procedures Name Priority Associated Diagnoses Date/Time EXCISION, MASS, TORSO Lipoma of skin and subcuta neous 10/10/2022 7:30 AM ENTRY LEVEL PROGRAMMER tissue documented as of this encounter Visit Diagnoses Not on filedocumented in this encounter Additional Health Concerns Assessment Noted Time PHQ-9 Depression Total Score: 16 03/25/2022 7:29 AM CD T documented as of this encounter Care Teams Head Screen Worker Relationship Specialty Start Date End Date Aydee Burton, PCP - General Nurse Practitioner - 05/17/21 UPSET OPERATOR CHEMIST INTERNSHIP Family [address] [place] [address] [phone] Aydee Burton, Assigned PCP 04/28/21 UPSET OPERATOR CHEMIST INTERNSHIP [address] [place] [address] [phone] Louisa Hood, Assigned Neuroscience 07/11/21 UPSET OPERATOR CHEMIST INTERNSHIP Provider [address] [place] [address] 136235 Se Levy, Lead Market Manager 08/05/21 05/12/22 Clari Francois Pharmacist Pharmacist 08/06/21 06/07/22 JORDAN Banks [address] [place] [address] [place], Assigned Sleep 08/01/21 Angel Turcios, Provider [address] [place] [address] Lesly Celaya MD Assigned Surgical 09/05/[address] [facility] [place] [address] [facility] 09/30/21 Worker Ramses Mcpherson Assigned OBGYN 11/07/21 MD Onesimo Provider [address] [place] [address] Obdulio Barrera MD Critical Care 01/24/[address] [place] [address] Obdulio Barrera, Assigned Pulmonology 02/06/22 MD Provider [address] [place] [address] Lesvia Stanley, GHADA Cardiac Rehabilitation 03/03/22 03/03/23 [facility] Therapist [address] [place] [place] [address] Marilia Deluna, PhD Assigned Behavioral 02/20/22 [address] [facility] [place] [address] Niyah Decker, [facility] Pharmacist Pharmacist 03/07/22 420 [facility] 812 [place] [address] Clari Poole, Pharmacist Pharmacist 03/07/22 06/15/22 [facility] 2825 [facility] [place] [phone] Lesvia Stanley EP Cardiac Rehabilitation 03/17/22 03/17/23 [facility] Therapist [address] [address] Mago Swift, CENTRAL OFFICE REPAIRER Lead Market Manager Business Excellence Leader - 08/05/21 Clinical documented as of this encounter
--- OUTSIDE RECORDS SUMMARY | 2022-09-21 04:05 | XMS_ITS | Encounter Summary ---
:1980 Author Organization [place] Address [address] [place] [address] Care Team Providers Name Role Phone Aydee Burton UTILITY REPAIRER VARNISH MAKER Primary Care Provider [phone] Aydee Burton UTILITY REPAIRER VARNISH MAKER Unavailable [phone] Louisa Hood UTILITY REPAIRER VARNISH MAKER Unavailable [phone] Se Levy [facility] Unavailable Unavailable Clari Ruiz [facility] Unavailable Angel Hannah MD Unavailable Lesly Celaya MD Unavailable Tawana Patel MA Unavailable Unavailable Ramses Mcpherson MD Unavailable [phone] Obdulio Barrera MD Unavailable [phone] Obdulio Barrera MD Unavailable [phone] Lesvia Stanley Unavailable Marilia Deluna PhD Unavailable Niyah Decker [facility] Unavailable Clari Poole [facility] Unavailable Lesvia Stanley EP Unavailable JosephClari [facility] Unavailable TimmyNiyah RN Unavailable Delia Avila [facility] Unavailable [place], Delia Leal [facility] Unavailable [phone] Schwreggievictorino Niyah Caro [facility] Unavailable Mago Swift [facility] Unavailable Niyah Decker [facility] Unavailable EvertonLeela davis [facility] Unavailable SchwNiyah grossman [facility] Unavailable Encounter Details Date Type Department Care Team Description 04/04/2022 [facility] Aydee Burton APRN [facility] [address] [facility] [address] [address] [address] [place] [address] [place], [place] [phone] (Wo rk) Social History Tobacco Use Types [...] er 08/05/2021 How often do you attend oriental orthodox or rastafari services? Never 08/05/2021 Do you belong to any clubs or organizations such as oriental orthodox N o 08/05/2021 groups, unions, fraternal [...] at Date Recorded Female 11/09/2021 7:53 PM COMMUNICATIONS TOWER CLIMBER COVID-19 Exposure Response Date Recorded In the last 10 days, have you been in contact with No / Unsu re 04/07/2022 12:43 PM CDT someone who was confirmed or suspected to have Coronavirus/COVID-19? documented as of this encounter Miscellaneous Notes Telephone Encounter - Ciara Montejo RN - 04/05/2022 9:54 AM CDT Refill approved/passed per [facility] refill protocol. Ciara Mg RN [facility] Triage documented in this encounter Plan of Treatment Upcoming Encounters Date Type Specialty Care Team Description 09/26/2022 Appointment Speech Therapy Obdulio Barrera MD 420 [facility] 276 [place] [address] Anabel Chew, GROUND SERVICES INSTRUCTOR [facility] 516 [facility] 396 [place], [place] [address] 09/27/2022 Therapy Visit Physical Therapy Luisana Watkins, PT [address] [place] [address] 09/29/2022 Virtual Visit Pain & Palliative Marilia Deluna, Care PhD [address] [place] [address] 09/30/2022 Office Visit Family Practice Micheal Aydee Mendez, UTILITY REPAIRER VARNISH MAKER [address] [place] [address] 10/03/2022 Therapy Visit Physical Therapy Una Reardon, PT [address] [place] [address] 10/10/2022 Hospital Encounter Surgery Lesly Celaya MD [address] [place] [address] 10/10/2022 Office Visit Surgery Lesly Celaya MD [address] [place] [address] Ninoska Flowers PA-Ynes [address] [place] [address] 10/10/2022 Surgery Surgery Lesly Celaya, EXCISION, MASSES - MD back, abdomen, [address] [place] [address] 10/11/2022 Virtual Visit Clari Su, [facility] [address] [id number] [place], [place] [address] 10/14/2022 Appointment Speech Therapy Anabel Chew, GROUND SERVICES INSTRUCTOR [facility] 516 [facility] [address] [place], [place] [address] 10/21/2022 Office Visit Pulmonology Obdulio Barrera MD 420 [facility] [address] [place], [place] [address] 10/25/2022 PRE VISIT ENT Charo Burton MD Previsit [address] [place] [address] 10/25/2022 Office Visit Charo Carter MD [address] [place] [address] 10/25/2022 Office Visit ENT Provider, 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 Handy Worker 10/28/2022 Appointment Speech Therapy Anabel Chew, GROUND SERVICES INSTRUCTOR [address] [address] 11/17/2022 Appointment Speech Therapy Anabel Chew, GROUND SERVICES INSTRUCTOR [address] [address] 12/23/2022 Office Visit Neurology Colby Yeung MD [address] [place] [place] [address] Scheduled Procedures Name Priority Associated Diagnoses Date/Time EXCISION, MASS, TORSO Lipoma of skin and subcuta neous 10/10/2022 7:30 AM COMMUNICATIONS TOWER CLIMBER tissue documented as of this encounter Visit [...] as of this encounter Care Teams Manager Bar Relationship Specialty Start Date End Date Aydee Burton, PCP - General Nurse Practitioner - 05/17/21 UTILITY REPAIRER VARNISH MAKER Family [address] [place] [address]192 Aydee Burton, Assigned PCP 04/28/21 UTILITY REPAIRER VARNISH MAKER [address] [place], [place] [phone] Louisa Hood, Assigned Neuroscience 07/11/21 UTILITY REPAIRER VARNISH MAKER Provider 500 [place], [place] [address] Se Levy, Lead Cardiopulmonary Technologist Chief 08/05/21 05/12/22 PROGRAM PROFESSIONALClari Ordonez Pharmacist Pharmacist 08/06/21 06/07/22 Jocelyn, [facility] [address] [place] [address] [place], Assigned Sleep 08/01/21 Angel Turcios, Provider [address] [place] [address] Lesly Celaya MD Assigned Surgical 09/05/21 [address] [facility] Provider [place], [place] [address] Tawana Patel [facility] 09/30/21 Worker Ramses Mcpherson Assigned OBGYN 11/07/21 MD Onesimo Provider [address] [place], [place] [phone] Obdulio Barrera MD Critical Care 01/24/[address] 779915 Obdulio Barrera, Tone Pulmonology 02/06/[address] [place] [phone] Lesvia Stanley EP Cardiac Rehabilitation 03/03/22 03/03/23 [facility] Therapist [address] [address] Marilia Deluna, PhD Assigned Behavioral 02/20/22 12[address] [facility] [place] [address] Niyah Decker, [facility] Pharmacist Pharmacist 03/07/22 420 [facility] 812 [place], [place] [phone] Clari Poole, Pharmacist Pharmacist 03/07/22 06/15/22 [facility] [address] [facility] [place] [address] Lesvia Stanley EP Cardiac Rehabilitation 03/17/22 03/17/23 [facility] Therapist [address] [facility] [place] [address] Clari Ruiz Assigned MTM 04/09/22 05/27/22 Jocelyn [facility] Pharmacist [address] [place], [place] [address] Niyah Warner, Lead Cardiopulmonary Technologist Chief Primary Care - CC 06/27/22 RN Delia Avila, Pharmacist Pharmacist 06/07/22 [facility] 909 [place] [address] Delia Avila, Assigned MTM 06/11/2206/24 [facility] Pharmacist [address] [place] [id number] Niyah Decker, [facility] Assigned MTM 05/28/22 06/10/22 420 [facility] 812 Pharmacist [place], [place] [phone] Mago Swift, [facility] Lead Cardiopulmonary Technologist Chief Mangle Roller - 08/05/21 Clinical Niyah Decker, [facility] Assigned MTM 06/25/22 07/29/22 420 [facility] 812 Pharmacist [place], [place] [address] Leela Jarvis RPH Pharmacist 07/26/22 05/15/23 48[address] [facility] [address] [place] [phone] Niyah Decker [facility] Assigned MT 08/10/22 420 [facility] 812 [place] [address] documented as of this encounter
--- OUTSIDE RECORDS SUMMARY | 2022-09-21 04:05 | XMS_ITS | Encounter Summary ---
:1980 Author Organization [place] Address [address] [place] [address] Care Team Providers Name Role Phone Aydee Burton DRY TRANSFER WORKER FORESTRY AID Primary Care Provider [phone] Aydee Burton DRY TRANSFER WORKER [employer] Unavailable [phone] Louisa Hood DRY TRANSFER WORKER [employer] Unavailable [phone] Se Levy [facility] Unavailable Unavailable Clari Ruiz [facility] Unavailable [phone] Angel Hannah MD Unavailable Lesly Celaya MD Unavailable Tawana Patel MA Unavailable Unavailable Ramses Mcpherson MD Unavailable [phone] Obdulio Barrera MD Unavailable [phone] Obdulio Barrera MD Unavailable [phone] Lesvia Stanley Unavailable Marilia Deluna PhD Unavailable Niyah Decker [facility] Unavailable Clari Poole [facility] Unavailable Lesvia Stanley Unavailable JamisonMago [facility] Unavailable Encounter Details Date Type Department Care Team Description 03/31/2022 Travel Social History Tobacco Use Types Packs/Day [...] How often do you attend congregation or rastafari services? Never 08/05/2021 Do you [...] at Date Recorded Female 11/09/2021 7:53 PM SOCIAL MEDIA INTERN COVID-19 Exposure Response Date Recorded In the last 10 days, have you been in contact with No / Unsu re 03/31/2022 11:55 AM CDT someone who was confirmed or suspected to have Coronavirus/COVID-19? documented as of this encounter Plan of Treatment Upcoming Encounters Date Type Specialty Care Team Description 09/26/2022 Appointment Speech Therapy Obdulio Barrera MD 420 [facility] 276 [place] [address] Anabel Chew, ACCOUNT MANAGEMENT SPECIALIST [facility] 516 [facility] 396 [place] [address] 09/27/2022 Therapy Visit Physical Therapy Luisana Watkins, PT 2155 [place] [address] 09/29/2022 Virtual Visit Pain & Palliative Marilia Deluna, Care PhD [address] [place] [address] 09/30/2022 Office Visit Family Practice Aydee Burton, DRY TRANSFER WORKER [facility] [address] [place] [phone] 10/03/2022 Therapy Visit Physical Therapy Una Reardon, PT 2[address] [place] [phone] 10/10/2022 Hospital Encounter Surgery Lesly Celaya MD [address] [place], [place] [address] 10/10/2022 Office Visit Surgery Lesly Celaya MD [address] [place] [address] Ninoska Flowers PA-C [address] [place] [address] 10/10/2022 Surgery Surgery Lesly Celaya, EXCISION, MASSES - MD back, abdomen, [address] right lower BL extremity [place], [place] [phone] 10/11/2022 Virtual Visit Clari Su, [facility] [address] [place] [address] 10/14/2022 Appointment Speech Therapy Anabel Chew, ACCOUNT MANAGEMENT SPECIALIST [address] [address] 10/21/2022 Office Visit Pulmonology Obdulio Barrera MD [address] [address] 10/25/2022 PRE VISIT ENT Charo Burton MD Previsit 9 [place], [place] [address] 10/25/2022 Office Visit ENT Charo Burton MD [address]09 [place], [place] [address] 10/25/2022 Office Visit ENT Provider, 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 Metal Mockup Maker 10/28/2022 Appointment Speech Therapy Anabel Chew, ACCOUNT MANAGEMENT SPECIALIST [address] 5358[address] 11/17/2022 Appointment Speech Therapy Anabel Chew, ACCOUNT MANAGEMENT SPECIALIST [address] [address] 12/23/2022 Office Visit Neurology Colby Yeung MD [address] [place] [address]135 Scheduled Procedures Name Priority Associated Diagnoses Date/Time EXCISION, MASS, TORSO Lipoma of skin and subcuta neous 10/10/2022 7:30 AM SOCIAL MEDIA INTERN tissue documented as of this encounter Visit Diagnoses Not on filedocumented in this encounter Additional Health Concerns Assessment Noted Time PHQ-9 Depression Total Score: 16 03/25/2022 7:29 AM CD T documented as of this encounter Care Teams Shingle Catcher Relationship Specialty Start Date End Date Aydee Burton, PCP - General Nurse Practitioner - 05/17/21 DRY TRANSFER WORKER [employer]Y A[employer] Family [address] [place], [place] [phone] Aydee Burton, Assigned PCP 04/28/21 DRY TRANSFER WORKER [employer] [address] [place], [place] [phone] Louisa Hood, Assigned Neuroscience 07/11/21 DRY TRANSFER WORKER [employer] A[employer] Provider 500 [place] [address] Se Levy, Lead Editor Farm Journal 08/05/21 05/12/22 Clari Francois Pharmacist Pharmacist 08/06/21 06/07/22 Jocelyn, [facility] [address] [place], [place] [phone] [place], Assigned Sleep 08/01/21 Angel Turcios, Provider [address] [place], [place] [phone] Lesly Celaya MD Assigned Surgical 09/05/21 [address] [place] [place] [address] Tawana Patel MA Community Health 09/30/21 Worker Ramses Mcpherson Assigned OBGYN 11/07/21 MD Onesimo Provider [address] [place] [address] Obdulio Barrera MD Critical Care 01/24/22 420 [facility] 276 [place] [address] Obdulio Barrera, Assigned Pulmonology 02/06/22 MD Provider 420 [facility] 276 [place], [place] [address] Lesvia Stanley, GHADA Cardiac Rehabilitation 03/03/22 03/03/23 [facility] Therapist [address] [id number] Marilia Deluna, PhD Assigned Behavioral 02/20/22 [address] [facility] [place] [place] [address] Niyah Decker, [facility] Pharmacist Pharmacist 03/07/22 420 [facility] 812 [place] [address] Clari Poole, Pharmacist Pharmacist 03/07/22 06/15/22 [facility] [address] [facility] [address] [place] [phone] Lesvia Stanley, GHADA Cardiac Rehabilitation 03/17/22 03/17/23 [facility] Therapist [address] [phone] Mago Swift, [facility] Lead Editor Farm Journal Hand Finisher - 08/05/21 Clinical documented as of this encounter
--- OUTSIDE RECORDS SUMMARY | 2022-09-21 04:05 | XMS_ITS | Encounter Summary ---
:1980 Author Organization [place] Address [address] [place] [address] Care Team Providers Name Role Phone Aydee Burton BANQUET KITCHEN SUPERVISOR ROD FILLER Primary Care Provider [phone] Aydee Burton BANQUET KITCHEN SUPERVISOR ROD FILLER Unavailable [phone] Louisa Hood BANQUET KITCHEN SUPERVISOR ROD FILLER Unavailable [phone] Se Levy [facility] Unavailable Unavailable Clari Ruiz [facility] Unavailable [phone] Angel Hannah MD Unavailable Lesly Celaya MD Unavailable Tawana Patel MA Unavailable Unavailable Ramses Mcpherson MD Unavailable [phone] Obdulio Barrera MD Unavailable Obdulio Barrera MD Unavailable [phone] Lesvia Stanley Unavailable Marilia Deluna PhD Unavailable Niyah Decker [facility] Unavailable Clari Poole [facility] Unavailable Lesvia Stanley Unavailable JamisonMago [facility] Unavailable Encounter Details Date Type Department Care Team Description 03/29/2022 Travel Social History Tobacco Use Types Packs/Day [...] How often do you attend sabianist or sabianism services? Never 08/05/2021 Do you [...] at Date Recorded Female 11/09/2021 7:53 PM LEADERSHIP DEVELOPMENT INSTRUCTOR COVID-19 Exposure Response Date Recorded In the last 10 days, have you been in contact with No / Unsu re 03/29/2022 2:27 PM CDT someone who was confirmed or suspected to have Coronavirus/COVID-19? documented as of this encounter Plan of Treatment Upcoming Encounters Date Type Specialty Care Team Description 09/26/2022 Appointment Speech Therapy Obdulio Barrera MD 420 [facility] 276 [place] [address] Anabel Chew, MANAGER DATA [facility] 516 [facility] 396 [place] [address] 09/27/2022 Therapy Visit Physical Therapy Luisana Watkins, PT 2[address] [place] [address] 09/29/2022 Virtual Visit Pain & Palliative Marilia Deluna, Care PhD [address] [place] [address] 09/30/2022 Office Visit Family Practice Aydee Burton, BANQUET KITCHEN SUPERVISOR [facility] [address] [place] [phone] 10/03/2022 Therapy Visit Physical Therapy Una Reardon, PT 2[address] [place] [phone] 10/10/2022 Hospital Encounter Surgery Lesly Celaya MD [address] [place], [place] [address] 10/10/2022 Office Visit Surgery Lesly Celaya MD [address] [place] [address] Ninoska Flowers PA-C [address] [place] [address] 10/10/2022 Surgery Surgery Lesly Celaya, EXCISION, MASSES - MD back, abdomen, [address] right lower BL extremity [place], [place] [phone] 10/11/2022 Virtual Visit Clari Su, [facility] [address] [place] [address] 10/14/2022 Appointment Speech Therapy Anabel Chew, MANAGER DATA [address] [address] 10/21/2022 Office Visit Pulmonology Obdulio Barrera MD [address] [address] 10/25/2022 PRE VISIT ENT Charo Burton MD Previsit 9 [place], [place] [address] 10/25/2022 Office Visit ENT Charo Burton MD 909 [place], [place] [address] 10/25/2022 Office Visit ENT Provider, 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 Pie Maker 10/28/2022 Appointment Speech Therapy Anabel Chew, MANAGER DATA [address] [address] 11/17/2022 Appointment Speech Therapy Anabel Chew, MANAGER DATA [address] [address]32[address] 12/23/2022 Office Visit Neurology Colby Yeung MD [address] [place] [address] Scheduled Procedures Name Priority Associated Diagnoses Date/Time EXCISION, MASS, TORSO Lipoma of skin and subcuta neous 10/10/2022 7:30 AM LEADERSHIP DEVELOPMENT INSTRUCTOR tissue documented as of this encounter Visit Diagnoses Not on filedocumented in this encounter Additional Health Concerns Assessment Noted Time PHQ-9 Depression Total Score: 16 03/25/2022 7:29 AM CD T documented as of this encounter Care Teams Vegetable Tier Relationship Specialty Start Date End Date Aydee Burton, PCP - General Nurse Practitioner - 05/17/21 BANQUET KITCHEN SUPERVISOR ROD FILLER Family [address] [place], [place] [phone] Aydee Burton, Assigned PCP 04/28/21 BANQUET KITCHEN SUPERVISOR ROD FILLER [address] [place], [place] [phone] Louisa Hood, Assigned Neuroscience 07/11/21 BANQUET KITCHEN SUPERVISOR ROD FILLER Provider 500 [place] [address] Se Levy, Lead Poke In 08/05/21 05/12/22 Clari Francois Pharmacist Pharmacist 08/06/21 06/07/22 Jocelyn, [facility] [address] [place], [place] [phone] [place], Assigned Sleep 08/01/21 Angel Turcios, Provider [address] [place], [place] [phone] Lesly Celaya MD Assigned Surgical 09/05/21 [address] [place] [address] Tawana Patel MA Community Health 09/30/21 Worker Ramses Mcpherson Assigned OBGYN 11/07/21 MD Onesimo Provider [address] [place] [address] Obdulio Barrera MD Critical Care 01/24/22 420 [facility] [address] [place] [address] Obdulio Barrera, Assigned Pulmonology 02/06/22 MD Provider 420 [facility] 276 [place], [place] [address] Lesvia Stanley, GHADA Cardiac Rehabilitation 03/03/22 03/03/23 [facility] Therapist [address] [id number] Marilia Deluna, PhD Assigned Behavioral 02/20/22 [address] [facility] [place] [address] Niyah Decker, [facility] Pharmacist Pharmacist 03/07/22 420 [facility] 812 [place] [address] Clari Poole, Pharmacist Pharmacist 03/07/22 06/15/22 [facility] [address] [facility] [address] [place] [phone] Lesvia Stanley, GHADA Cardiac Rehabilitation 03/17/22 03/17/23 [facility] Therapist [address] [id number] Mago Swift, [facility] Lead Poke In Airframe Technician - 08/05/21 Clinical documented as of this encounter
--- OUTSIDE RECORDS SUMMARY | 2022-09-21 04:05 | XMS_ITS | Encounter Summary ---
:1980 Author Organization [place] Address [address] [place] [address] Care Team Providers Name Role Phone Aydee Burton RUBBER WORKER CATTLE DIPPER Primary Care Provider [phone] Aydee Burton RUBBER WORKER CATTLE DIPPER Unavailable [phone] Louisa Hood RUBBER WORKER CATTLE DIPPER Unavailable [phone] Se Levy [facility] Unavailable Unavailable Clari Ruiz [facility] Unavailable [phone] Angel Hannah MD Unavailable Lesly Celaya MD Unavailable Tawana Patel MA Unavailable Unavailable Ramses Mcpherson MD Unavailable [phone] Obdulio Barrera MD Unavailable [phone] Obdulio Barrera MD Unavailable Lesvia Stanley Unavailable Marilia Deluna PhD Unavailable Niyah Decker [facility] Unavailable Clari Poole [facility] Unavailable Lesvia Stanley EP Unavailable JamisonMago [facility] Unavailable Reason for Visit Rehab Therapy Cardiac Therapy (Routine: Next available opening) - Authorized Specialty Diagnoses / Procedures Referred By Contact Refer red To Contact CARDIAC REHAB Diagnoses Asthma SOB (shortness of breath) [address] [place] [address] Phone: Referral ID Status Reason Start Date Expiration Date Visits V isits Requested Authorized [id number] Authorized 11/13/2021 11/12/2022 365 365 Encounter Details Date Type Department Care Team Description 04/05/2022 Hospital Encounter [facility] Ezequiel Barrera MD [address] [facility] 276 [place] [address] Cardiac and Pulmonary 1, Rh Pulmonary Rehab Rehabilitation [address] [place] [address] Social History Tobacco Use Types [...] How often do you attend shinto or baptist services? Never 08/05/2021 Do you belong to [...] at Date Recorded Female 11/09/2021 7:53 PM OIL BAY TECHNICIAN COVID-19 Exposure Response Date Recorded In [...] Obdulio Barrera MD [address] [facility] 276 [place], [place] [address] Anabel Chew, FIELD CANE SCALE CLERK [address] [place], [place] [address] 09/27/2022 Therapy Visit Physical Therapy Luisana Watkins, PT [address] [place] [address] 09/29/2022 Virtual Visit Pain & Palliative Marilia Deluna, Ronald PhD [address] [place] [address] 09/30/2022 Office Visit Family Practice Aydee Burton, RUBBER WORKER CATTLE DIPPER [address] [place] [address] 10/03/2022 Therapy Visit Physical Therapy David-Una Tang, PT [address] [place] [phone] 10/10/2022 Hospital Encounter Surgery Lesly Celaya MD [address] [place], [place] [phone] 10/10/2022 Office Visit Surgery Lesly Celaya MD [address] [place] [address] Ninoska Flowers, PA-C [address] [place] [address] 10/10/2022 Surgery Surgery Lesly Celaya, EXCISION, MASSES - back, abdomen, [address] [place] [address] 10/11/2022 Virtual Visit Clari Su, [facility] [address] [id number] [place], [place] [address] 10/14/2022 Appointment Speech Therapy Anabel Chew, FIELD CANE SCALE CLERK [facility] [address] [facility] 396 [place], [place] [address] 10/21/2022 Office Visit Pulmonology Obdulio Barrera MD [address] [facility] 276 [place], [place] [address] 10/25/2022 PRE VISIT ENT Charo Burton MD Previsit 909 [place] [address] 10/25/2022 Office Visit ENT Charo Burton MD [address] [place], [place] [address] 10/25/2022 Office Visit ENT Provider, Jeannette 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 Skating Carhop 10/28/2022 Appointment Speech Therapy Anabel Chew, FIELD CANE SCALE CLERK [address] [address] 11/17/2022 Appointment Speech Therapy Anabel Chew, FIELD CANE SCALE CLERK [address] 2[address] 12/23/2022 Office Visit Neurology Colby Yeung MD [address] [place] [address] Scheduled Procedures Name Priority Associated Diagnoses Date/Time EXCISION, MASS, TORSO Lipoma of skin and subcuta neous 10/10/2022 7:30 AM OIL BAY TECHNICIAN tissue documented as of this encounter Visit Diagnoses Not on filedocumented in this encounter Additional Health Concerns Infection Onset Date Last Indicated Resolved Time Rule Out Pertussis 04/05/2022 04/05/2022 04/06/2022 10 :34 AM CDT Assessment Noted Time PHQ-9 Depression Total Score: 16 03/25/2022 7:29 AM CD T documented as of this encounter Care Teams Tire Design Engineer Relationship Specialty Start Date End Date Aydee Burton, PCP - General Nurse Practitioner - 05/17/21 RUBBER WORKER CATTLE DIPPER Family [address] [place], [place] [phone] Aydee Burton, Assigned PCP 04/28/21 RUBBER WORKER CATTLE DIPPER [address] [place], [place] [phone] Louisa Hood, Assigned Neuroscience 07/11/21 RUBBER WORKER CATTLE DIPPER Provider 500 [place] [address] Se Levy, Lead Community Dietitian 08/05/21 05/12/22 Clari Francois Pharmacist Pharmacist 08/06/21 06/07/22 Jocelyn, [facility] [address] [place] [address] [place], Assigned Sleep 08/01/21 Angel Turcios, Provider [address] [place] [address] Lesly Celaya MD Assigned Surgical 09/05/21 [address] [facility] [place] [place] [address] Tawana Patel MA [facility] 09/30/21 Worker Ramses Mcpherson Assigned OBGYN 11/07/21 MD Onesimo Provider [address] [place] [address] Obdulio Barrera MD Critical Care 01/24/[address] [place] [address] Obdulio Barrera, Assigned Pulmonology 02/06/[address] [place] [address] [phone] Lesvia Stanley EP Cardiac Rehabilitation 03/03/22 03/03/23 [facility] Therapist [address] [place] [id number] Marilia Deluna, PhD Assigned Behavioral 02/20/22 [address] [facility] Provider [place], [place] [phone] Niyah Decker, [facility] Pharmacist Pharmacist 03/07/22 420 [facility] 812 [place] [address] Clari Poole, Pharmacist Pharmacist 03/07/22 06/15/22 [facility] [address] [facility] [place] [address] Lesvia Stanley EP Cardiac Rehabilitation 03/17/22 03/17/23 [facility] Therapist [address] [place] [address] Mago Swift, [facility] Lead Community Dietitian Safety Person - 08/05/21 Clinical documented as of this encounter
--- OUTSIDE RECORDS SUMMARY | 2022-09-21 04:05 | XMS_ITS | Encounter Summary ---
:1980 Author Organization [place] Address [address] [place] [address] Care Team Providers Name Role Phone Aydee Burton LOGISTICS TECH CONSULTING GROUP ANALYST Primary Care Provider [phone] Aydee Burton LOGISTICS TECH CONSULTING GROUP ANALYST Unavailable [phone] Louisa Hood LOGISTICS TECH CONSULTING GROUP ANALYST Unavailable [phone] Se Levy [facility] Unavailable Unavailable Clari Ruiz [facility] Unavailable [phone] Angel Hannah MD Unavailable Lesly Celaya MD Unavailable Tawana Patel MA Unavailable Unavailable Ramses Mcpherson MD Unavailable [phone] Obdulio Barrera MD Unavailable Obdulio Barrera MD Unavailable [phone] Lesvia Stanley Unavailable Marilia Deluna PhD Unavailable Niyah Decker [facility] Unavailable Clari Poole [facility] Unavailable Lesvia Stanley EP Unavailable JosephClari [facility] Unavailable TimmyNiyah Vania RN Unavailable Delia Avila [facility] Unavailable [phone] [place], Delia Griffithzabeth [facility] Unavailable [phone] Brianne Niyah Caro [facility] Unavailable JamisonMago 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 Never 08/05/2021 Do you belong to any clubs or organizations such as druze N o 08/05/2021 groups, unions, fraternal or [...] at Date Recorded Female 11/09/2021 7:53 PM PLASTIC CUTTER COVID-19 Exposure Response Date Recorded In the last 10 days, have you been in contact with No / Unsu re 04/05/2022 2:00 PM CDT someone who was confirmed or suspected to have Coronavirus/COVID-19? documented as of this encounter Miscellaneous Notes Result Encounter Note - Lory Nunez PA-C - 04/02/2022 11:59 PM CDT Marta I received your [employer] report. I have released to to you via their website so you should be receiving a secure link in your email. Additionally, we will mail you a color copy of this report and fax a copy to your psychiatrist. Ultimately your current duloxetine and lamotrigine are in your green use as directed column and your current Wellbutrin is in your red column with specific recommendations that a higher dosage may berequired. You are on a moderate dosage at 300 mg so I would encourage you to discuss any possible dosage adjustments with your psychiatrist. 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 I would recommend that you start taking a folic acid supplement daily of 400 mcg. You can achievethis by taking a folic acid supplement or simply by replacing a multivitamin with a vitamin. If you have any questions please do not hesitate to contact our office via phone ([phone]) or Cytodynhart. Lory Nunez MBA, MS, PA-C [facility] documented in this encounter Plan of Treatment Upcoming Encounters Date Type Specialty Care Team Description 09/26/2022 Appointment Speech Therapy Obdulio Barrera MD 420 [facility] 276 [place], [place] [address] Anabel Chew, FLIGHT ENGINEER PERFORMANCE QUALIFIED [facility] 516 [facility] 396 [place] [address] 09/27/2022 Therapy Visit Physical Therapy Luisana Watkins, PT [address] [place] [address] 09/29/2022 Virtual Visit Pain & Palliative Marilia Deluna, [facility] PhD [address] [place] [address] 09/30/2022 Office Visit Family Practice Aydee Burton, LOGISTICS TECH CONSULTING GROUP ANALYST 4[address] [place], [place] [address] 10/03/2022 Therapy Visit Physical Therapy Una Reardon, PT [address] [place] [phone] 10/10/2022 Hospital Encounter Surgery Lesly Celaya MD [address] [place], [place] [address] 10/10/2022 Office Visit Surgery Lesly Celaya MD [address] [place] [address] Ninoska Flowers PA-C [address] [phone] 10/10/2022 Surgery Surgery Lesly Celaya, EXCISION, MASSES - MD back, abdomen, [address] extremity [place], [place] [address] 10/11/2022 Virtual Visit Clari Su, [facility] [address] [id number] [place] [address] 10/14/2022 Appointment Speech Therapy Anabel Chew, FLIGHT ENGINEER PERFORMANCE QUALIFIED [address] [address] 10/21/2022 Office Visit Pulmonology Obdulio Barrera MD [address] [address] 10/25/2022 PRE VISIT ENT Charo Burton MD Previsit [address] [place] [address] 10/25/2022 Office Visit ENT Charo Burton MD [address] [place] [address] 10/25/2022 Office Visit ENT Provider, 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 Algebra Tutor 10/28/2022 Appointment Speech Therapy Anabel Chew SLP [address] [address] 11/17/2022 Appointment Speech Therapy Anabel Chew SLP [address] [address] 12/23/2022 Office Visit Neurology Colby Yeung MD [address] [place] [address] (work) Scheduled Procedures Name Priority Associated Diagnoses Date/Time EXCISION, MASS, TORSO Lipoma of skin and subcuta neous 10/10/2022 7:30 AM PLASTIC CUTTER tissue documented as of this encounter Procedures Procedure Name Priority Date/Time Associated Diagnosis Comme nts GENESIGHT PSYCHOTROPIC Routine 04/02/2022 PTSD (post-traumat ic Results for this stress disorder) procedure are in the Severe episode of results se ction. recurrent major depressive disorder, without psychotic features (H) SHAMEKA (generalized anxiety disorder) GENESIGHT MTHFR Routine 04/02/2022 PTSD (post-traumatic Resu lts for this stress disorder) procedure are in the Severe episode of results se ction. recurrent major depressive disorder, without psychotic features (H) SHAMEKA (generalized anxiety disorder) documented in this encounter Results (ABNORMAL) [facility] MTHFR (04/02/2022) P athologist Signature See Scanned [facility] Report Specimen (Source) Anatomical Location Collection Method / Collectio n Time Received Time / Laterality Volume Buccal swab ORAL CAVITY 04/02/2022 STRUCTURE / Unknown Narrative This result has an attachment that is no t available. Lory Nunez PA-C LAB - BODY FLUIDS ORDERABLES Performing Organization Address City/[facility]/ZIP Code Phon e Number [employer] [address] [place] [address] [facility] Psychotropic (04/02/2022) P athologist Signature See Scanned [facility] Report Specimen (Source) Anatomical Location Collection Method / Collectio n Time Received Time / Laterality Volume Buccal swab ORAL CAVITY 04/02/2022 STRUCTURE / Unknown Narrative This result has an attachment that is no t available. Lory Nunez PA-C LAB - BODY FLUIDS ORDERABLES Performing Organization Address City/[facility]/ZIP Code Phon e Number [employer] [address] [place] [address] documented in this encounter Visit Diagnoses Diagnosis PTSD (post-traumatic stress disorder) Posttraumatic stress disorder Severe episode of recurrent major depres sive disorder, without psychotic features (H) SHAMEKA (generalized anxiety disorder) Generalized anxiety disorder Lipoma of skin and subcutaneous tissue Lipoma of other skin and subcutaneous ti ssue documented in this encounter Additional Health Concerns Infection Onset Date Last Indicated Resolved Time Rule Out Pertussis 04/05/2022 04/05/2022 04/06/2022 10 :34 AM CDT Assessment Noted Time PHQ-9 Depression Total Score: 16 03/25/2022 7:29 AM CD T documented as of this encounter Care Teams Traffic Or System Dispatcher Relationship Specialty Start Date End Date Aydee Burton, PCP - General Nurse Practitioner - 05/17/21 LOGISTICS TECH CONSULTING GROUP ANALYST Family [address] [place] [phone] Aydee Burton, Assigned PCP 04/28/21 LOGISTICS TECH CONSULTING GROUP ANALYST [address] [place] [address] Louisa Hood, Assigned Neuroscience 07/11/21 LOGISTICS TECH CONSULTING GROUP ANALYST Provider [address] [place], [place] [phone] Se Levy, Lead Practice Management Consultant 08/05/21 05/12/22 Clari Francois Pharmacist Pharmacist 08/06/21 06/07/22 [facility] [address] [place], [place] [phone] [place], Assigned Sleep 08/01/21 Angel Turcios, Provider [address] [place], [place] [phone] Lesly Celaya MD Assigned Surgical 09/05/21 [address] Provider [place], [place] [phone] Tawana Patel MA [facility] 09/30/21 Worker Ramses Mcpherson Assigned OBGYN 11/07/21 MD Onesimo Provider [address] [place], [place] [phone] Obdulio Barrera MD Critical Care 01/24/22 420 [facility] 276 [place], [place] [address] Obdulio Barrera, Assigned Pulmonology 02/06/22 MD Provider 420 [facility] 276 [place], [place] [address] Lesvia Stanley, GHADA Cardiac Rehabilitation 03/03/22 03/03/23 [facility] Therapist [address] [place], [place] [address] Marilia Deluna, PhD Assigned Behavioral 02/20/22 [address] [facility] Health Provider [place], [place] [address] Niyah Decker, [facility] Pharmacist Pharmacist 03/07/[address] [place] [address] 8[address] [place], [place] [address] Clari Poole, Pharmacist Pharmacist 03/07/22 06/15/22 [facility] [address] [facility] [address] [place], [place] [phone] Lesvia Stanley, GHADA Cardiac Rehabilitation 03/17/22 03/17/23 [facility] Therapist [address] [place], [place] [address] Clari Ruiz Assigned MTM 04/09/22 05/27/22 Jocelyn [facility] Pharmacist [address] [place], [place] [address] Niyha Warner, Lead Practice Management Consultant Primary Care - CC 06/27/22 RN Delia Avila, Pharmacist Pharmacist 06/07/22 [facility] [address] [place], [place] [phone] Delia Avila, Assigned MTM 06/11/2206/24 [facility] Pharmacist [address] [facility] [address] [place], [place] [address] Niyah Decker, [facility] Assigned MTM 05/28/22 06/10/22 420 [facility] 812 Pharmacist [place], [place] [phone] Mago Swift, [facility] Lead Practice Management Consultant Hydrology Professor - 08/05/21 Clinical Niyah Decker, [facility] Assigned MTM 06/25/22 07/29/22 420 [facility] 812 [place] [address] Leela Jarvis, [facility] Pharmacist 07/26/22 05/15/23 [address] [facility] [place]AN [place] [phone] Niyah Decker [facility] Assigned [place] 08/10/22 420 [facility] 812 Pharmacist [place], [place] [phone] documented as of this encounter
--- OUTSIDE RECORDS SUMMARY | 2022-09-21 04:05 | XMS_ITS | Encounter Summary ---
:1980 Author Organization [place] Address [address] [place] [address] Care Team Providers Name Role Phone Aydee Burton DEALER ACCOUNT MANAGER WARE CLEANER Primary Care Provider [phone] Aydee Burton DEALER ACCOUNT MANAGER WARE CLEANER Unavailable [phone] Louisa Hood DEALER ACCOUNT MANAGER WARE CLEANER Unavailable [phone] Se Levy [facility] Unavailable Unavailable Clari Ruiz [facility] Unavailable Angel Hannah MD Unavailable Lesly Celaya MD Unavailable Tawana Patel MA Unavailable Unavailable Ramses Mcpherson MD Unavailable [phone] Obdulio Barrera MD Unavailable [phone] Obdulio Barrera MD Unavailable [phone] Lesvia Stanley Unavailable Marilia Deluna PhD Unavailable Niyah Decker [facility] Unavailable Clari Poole [facility] Unavailable Lesvia Stanley Unavailable JamisonMago [facility] Unavailable Encounter Details Date Type Department Care Team Description 04/05/2022 Travel Social History Tobacco Use Types Packs/Day [...] How often do you attend holiness or gnosticism services? Never 08/05/2021 Do you [...] at Date Recorded Female 11/09/2021 7:53 PM TUTORING MANAGER COVID-19 Exposure Response Date Recorded In the last 10 days, have you been in contact with No / Unsu re 04/05/2022 2:00 PM CDT someone who was confirmed or suspected to have Coronavirus/COVID-19? documented as of this encounter Plan of Treatment Upcoming Encounters Date Type Specialty Care Team Description 09/26/2022 Appointment Speech Therapy Obdulio Barrera MD 420 [facility] 276 [place] [address] Anabel Chew, WASH TUB MACHINE OPERATOR [facility] 516 [facility] 396 [place] [address] 09/27/2022 Therapy Visit Physical Therapy Luisana Watkins, PT 2[address] [place] [address] 09/29/2022 Virtual Visit Pain & Palliative Marilia Deluna, Care PhD [address] [place] [address] 09/30/2022 Office Visit Family Practice Aydee Burton, DEALER ACCOUNT MANAGER [facility] [address] [place] [phone] 10/03/2022 Therapy Visit Physical Therapy Una Reardon, PT 2[address] [place] [phone] 10/10/2022 Hospital Encounter Surgery Lesly Celaya MD [address] [place], [place] [address] 10/10/2022 Office Visit Surgery Lesly Celaya MD [address] [place] [address] Ninoska Flowers PA-C [address] [place] [address] 10/10/2022 Surgery Surgery Lesly Celaya, EXCISION, MASSES - MD back, abdomen, [address] right lower [address] extremity [place], [place] [phone] 10/11/2022 Virtual Visit Clari Su, [facility] [address] [place] [address] 10/14/2022 Appointment Speech Therapy Anabel Chew, WASH TUB MACHINE OPERATOR [address] [address] 10/21/2022 Office Visit Pulmonology Obdulio Barrera MD [address] [address] 10/25/2022 PRE VISIT ENT Charo Burton MD Previsit [address] [place], [place] [address] 10/25/2022 Office Visit ENT Charo Burton MD [address] [place], [place] [address] 10/25/2022 Office Visit ENT Provider, 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 Patternmaker Pressure Cast 10/28/2022 Appointment Speech Therapy Anabel Chew, WASH TUB MACHINE OPERATOR [address] [address] 11/17/2022 Appointment Speech Therapy Anabel Chew, WASH TUB MACHINE OPERATOR [address] [address]38[address] 12/23/2022 Office Visit Neurology Colby Yeung MD [address] [place] [address] Scheduled Procedures Name Priority Associated Diagnoses Date/Time EXCISION, MASS, TORSO Lipoma of skin and subcuta neous 10/10/2022 7:30 AM TUTORING MANAGER tissue documented as of this encounter Visit Diagnoses Not on filedocumented in this encounter Additional Health Concerns Infection Onset Date Last Indicated Resolved Time Rule Out Pertussis 04/05/2022 04/05/2022 04/06/2022 10 :34 AM CDT Assessment Noted Time PHQ-9 Depression Total Score: 16 03/25/2022 7:29 AM CD T documented as of this encounter Care Teams Bullet Slug Casting Machine Operator Relationship Specialty Start Date End Date Aydee Burton, PCP - General Nurse Practitioner - 05/17/21 DEALER ACCOUNT MANAGER WARE CLEANER Family [address] [place] [address] Aydee Burton, Assigned PCP 04/28/21 DEALER ACCOUNT MANAGER WARE CLEANER [address] [place] [address] Louisa Hood, Assigned Neuroscience 07/11/21 DEALER ACCOUNT MANAGER WARE CLEANER Provider 500 [place], [place] [phone] Se Levy, Lead Order Worker 08/05/21 05/12/22 Clari Francois Pharmacist Pharmacist 08/06/21 06/07/22 Jocelyn, [facility] [address] [place] [address] [place], Assigned Sleep 08/01/21 Angel Turcios, Provider [address] [place] [address] Lesly Celaya MD Assigned Surgical 09/05/21 [address] Provider [place], [place] [address] Tawana Patel MA [facility] 09/30/21 Worker Ramses Mcpherson Assigned OBGYN 11/07/21 MD Onesimo Provider [address] [place], [place] [phone] Obdulio Barrera MD Critical Care 01/24/22 420 [facility] 276 [place] [address] Obdulio Barrera, Assigned Pulmonology 02/06/22 MD Provider [address] [place] [address] 276 [place] [address] Lesvia Stanley, GHADA Cardiac Rehabilitation 03/03/22 03/03/23 [facility] Therapist [address] [place] [address] Marilia Deluna, PhD Assigned Behavioral 02/20/22 [address] [facility] [place] [address] Niyah Decker, [facility] Pharmacist Pharmacist 03/07/22 420 [facility] 812 [place] [address] Clari Poole, Pharmacist Pharmacist 03/07/22 06/15/22 [facility] [address] [place] [address] Lesvia Stanley, GHADA Cardiac Rehabilitation 03/17/22 03/17/23 [facility] Therapist [address] [place] [address] Mago Swift, [facility] Lead Order Worker Changeover Operator - 08/05/21 Clinical documented as of this encounter
--- OUTSIDE RECORDS SUMMARY | 2022-09-21 04:05 | XMS_ITS | Encounter Summary ---
:1980 Author Organization [facility] Address [address] [place] [address] Care Team Providers Name Role Phone Aydee Burton JEWELSMITH COKE HANDLING SUPERVISOR Primary Care Provider [phone] Aydee Burton JEWELSMITH COKE HANDLING SUPERVISOR Unavailable [phone] Louisa Hood JEWELSMITH COKE HANDLING SUPERVISOR Unavailable [phone] Se Levy [facility] Unavailable Unavailable Clari Ruiz [facility] Unavailable [phone] Angel Hannah MD Unavailable Lesly Celaya MD Unavailable Tawana Patel MA Unavailable Unavailable Ramses Mcpherson MD Unavailable [phone] Obdulio Barrera MD Unavailable [phone] Obdulio Barrera MD Unavailable [phone] Lesvia Stanley Unavailable Marilia Deluna PhD Unavailable Niyah Dekcer [facility] Unavailable Clari Poole [facility] Unavailable Lesvia Stanley EP Unavailable JamisonMago [facility] Unavailable Reason for Visit Reason Comments Lab Only Encounter Details Date Type Department Care Team Description 04/05/2022 Allied Health/Nurse [facility] Lab Only (/) Visit [address] [address] Social History Tobacco Use Types [...] often do you attend roman catholic or gnosticist services? Never 08/05/2021 Do you belong to [...] at Date Recorded Female 11/09/2021 7:53 PM FIELD ARTILLERY FIRE CONTROL MAN COVID-19 Exposure Response Date Recorded In the last 10 days, have you been in contact with No / Unsu re 04/05/2022 2:00 PM CDT someone who was confirmed or suspected to have Coronavirus/COVID-19? documented as of this encounter Progress Notes Jasson Neal RN - 04/05/2022 2:00 PM CDT Pt coming in for Pertussis PCR testing. Advised of testing procedure. Patient stated an understanding and agreed with plan. Specimen obtained, sent to lab. Jasson Luo RN [facility] Triage documented in this encounter Miscellaneous Notes Result Encounter Note - Aydee Burton APRN COKE HANDLING SUPERVISOR - 04/05/2022 2:00 PM CDT Neg pertussis in another note. TARA Spivey [facility] documented in this encounter Plan of Treatment Upcoming Encounters Date Type Specialty Care Team Description 09/26/2022 Appointment Speech Therapy Obdulio Barrera MD 420 [facility] 276 [place], [place] [address] Anabel Chew, WHOLESALE LOAN PROCESSOR [facility] [address] [facility] 396 [place], [place] [address] 09/27/2022 Therapy Visit Physical Therapy Luisana Watkins, PT [address] [place] [address] 09/29/2022 Virtual Visit Pain & Palliative Marilia Deluna, Care PhD [address] [place], [place] [address] 09/30/2022 Office Visit Family Practice Aydee Burton APRN COKE HANDLING SUPERVISOR [address] [place] [id number] 10/03/2022 Therapy Visit Physical Therapy Una Reardon, PT [address] [facility] [place] [phone] 10/10/2022 Hospital Encounter Surgery Lesly Celaya MD [address] [place] [address] 10/10/2022 Office Visit Surgery Lesly Celaya MD [address] [place], [place] [address] Ninoska Flowers, FLORES-Ynes [address] [place] [address] 10/10/2022 Surgery Surgery Lesly Celaya, EXCISION, MASSES - MD back, abdomen, [address] [place] [address] 10/11/2022 Virtual Visit Pharm Clari Stoll, [facility] [address] [id number] [place], [place] [address] 10/14/2022 Appointment Speech Therapy Anabel Chew, WHOLESALE LOAN PROCESSOR [facility] [address] [facility] 396 [place], [place] [address] 10/21/2022 Office Visit Pulmonology Obdulio Barrera MD 420 [facility] 276 [place] [address] 10/25/2022 PRE VISIT Charo Carter MD Previsit 909 [place] [address] 10/25/2022 Office Visit Charo Carter MD [address] [place], [place] [phone] 10/25/2022 Office Visit ENT Provider, Jeannette 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 Kiln Loader 10/28/2022 Appointment Speech Therapy Anabel Chew, CELINE [address] [address] 11/17/2022 Appointment Speech Therapy Anabel Chew SLP [address] [address] 12/23/2022 Office Visit Neurology Colby Yeung MD [address] [place] [phone] Scheduled Procedures Name Priority Associated Diagnoses Date/Time EXCISION, MASS, TORSO Lipoma of skin and subcuta neous 10/10/2022 7:30 AM FIELD ARTILLERY FIRE CONTROL MAN tissue documented as of this encounter Procedures Procedure Name Priority Date/Time Associated Comments Diagnosis BORDETELLA PERTUSSIS Routine 04/05/2022 2:09 PM Chronic cough Results for this PARAPERTUSSIS, PCR CDT procedure are in the results section. documented in this encounter Results B. pertussis/parapertussis PCR-MANAGER OF PRODUCT (04/05/2022 2:09 PM CDT) [facility] Method Time Signature Bordetella Not Detected Not Detected 04/06/2022 [facility] pertussis DNA 10:34 AM LABORATORY CDT Comment: A negative result does not rule out the presence of PCR inhibitors or Bordetella pertussis DNA in concentratio ns below the limit of detection of the assay. Bordetella Not Detected Not Detected 04/06/2022 10:34 [facility] parapertussis DNA AM CDT Comment: A negative result does not rule out the presence of PCR inhibitors or Bordetella parapertussis DNA in concentr ations below the limit of detection for the assay. Specimen Anatomical Location / Collection Method Collection Yeyo e Received Time (Source) Laterality / Volume Swab NASOPHARYNGEAL Non-blood 04/05/2022 2:09 04/05/2022 2:29 STRUCTURE / Unknown Collection / PM CDT PM CDT Unknown Narrative [facility] - 04/06/2022 10:34 AM CDT The Dia[employer]orin Molecular Simplexa (TM) Bor detella Direct assay is a FDA-approved, real-time PCR test for the qualitative d etection and differentiation of Bordetella pertussis and Bordetella parapertussis i n nasopharyngeal swabs. Testing is performed by the [facility]. This test is used for clinical purposes. It should no t be regarded as investigational or for research. This laboratory is certified u nder the Clinical Laboratory Improvement Amendments of 1988 (CLIA-88) as qualifie d to perform high complexity clinical laboratory testing. Aydee Burton APRN, CNP LAB - [facility] Performing Organization Address City/State/ZIP Code Phon e Number [facility] [place] [place] [address] [facility], Room D297 documented in this encounter Visit Diagnoses Diagnosis Chronic cough [...] documented as of this encounter Care Teams Configuration Specialist Relationship Specialty Start Date End Date Aydee Burton, PCP - General Nurse Practitioner - 05/17/21 JEWELSMITH COKE HANDLING SUPERVISOR Family [address] [place] [id number] Aydee Burton, Assigned PCP 04/28/[address] [phone] Louisa Hood, Assigned Neuroscience 07/11/21 JEWELSMITH COKE HANDLING SUPERVISOR Provider [address] [place] [address] Se Levy, Lead Printing Plate Clerk 08/05/21 05/12/22 [facility] Clari Ruiz Pharmacist Pharmacist 08/06/21 06/07/22 Jocelyn [facility] [address] [place], [place] [phone] [place], Assigned Sleep 08/01/21 Angel Turcios, Provider [address] [place] [address] Lesly Celaya MD Assigned Surgical 09/05/21 [address] [facility] [place] [address] Tawana Patel [facility] 09/30/21 Worker Ramses Mcpherson Assigned OBGYN 11/07/21 MD Onesimo Provider [address] [place] [address] Obdulio Barrera MD Critical Care 01/24/22 MD 420 [facility] 276 [place] [address] Obdulio Barrera, Tone Pulmonology 02/06/22 Provider 420 [facility] 276 [place] [address] Lesvia Stanley, GHADA Cardiac Rehabilitation 03/03/22 03/03/23 [facility]OS[facility] Therapist [address] [place], [place] [address] Marilia Deluna, PhD Assigned Behavioral 02/20/22 [address] [facility] Provider [place], [place] [phone] Niyah Decker, [facility] Pharmacist Pharmacist 03/07/22 420 [facility] 812 [place], [place] [phone] Clari Poole, Pharmacist Pharmacist 03/07/22 06/15/22 [facility] [address] [facility] [place] [address] Lesvia Stanley EP Cardiac Rehabilitation 03/17/22 03/17/23 [facility] Therapist [address] [place] [address] Mago Swift, [facility] Lead Printing Plate Clerk Newspaper Peddler - 08/05/21 Clinical documented as of this encounter
--- OUTSIDE RECORDS SUMMARY | 2022-09-21 04:06 | XMS_ITS | Encounter Summary ---
:1980 Author Organization [place] Address [address] [place] [address] Care Team Providers Name Role Phone Aydee Burton ASSOCIATE PROFESSOR OF FORESTRY TAXI CAB DRIVER Primary Care Provider [phone] Aydee Burton ASSOCIATE PROFESSOR OF FORESTRY TAXI CAB DRIVER Unavailable [phone] Louisa Hood ASSOCIATE PROFESSOR OF FORESTRY TAXI CAB DRIVER Unavailable [phone] Se Levy [facility] Unavailable Unavailable Clari Ruiz [facility] Unavailable Angel Hannah MD Unavailable Lesly Celaya MD Unavailable Tawana Patel MA Unavailable Unavailable Ramsse Mcpherson MD Unavailable [phone] Obdulio Barrera MD Unavailable [phone] Obdulio Barrera MD Unavailable [phone] Lesvia Stanley Unavailable Marilia Deluna PhD Unavailable Niyah Decker [facility] Unavailable Clari Poole [facility] Unavailable Lesvia Stanley EP Unavailable Jamison Mago Terri [facility] Unavailable Reason for Visit Reason Onset Date Comments Patient Request for Note/Letter 03/16/2022 Encounter Details Date Type Department Care Team Description 03/16[facility]2022 [facility] [place] ELADIO Mendez CNP Note/Letter [address] [facility] [address] [place] [address] [place], [place] [phone] (Wo rk) [address] [phone] Social History Tobacco Use Types Packs/Day Years [...] at Date Recorded Female 11/09/2021 7:53 PM CHILD PSYCHOLOGIST COVID-19 Exposure Response Date Recorded In the last 10 days, have you been in contact with No / Unsu re 03/31/2022 11:55 AM CDT someone who was confirmed or suspected to have Coronavirus/COVID-19? documented as of this encounter Miscellaneous Notes Telephone Encounter - Abril Castaneda RN - 03/17/2022 1:05 PM CDT Called and spoke with patient. She gave them the letter with light duty restrictions this week. HR sent it to her manager fund. She talked with her manager fund yesterday, Monday. She said she has to go back and talk to HR. Category Manager said she has to go over work duties, 'are you going to be able to do this'. The way that you sound, wouldn'tbe good at the register. Wants a letter in case she doesn't hear back. Patient stated they way it was sounding, they would probably not let her go back to work because she has to do a lot of walking around, a lot of lifting. Put patient back on Aydee's schedule for tomorrow for video visit to follow-up. If patient hears back tomorrow, she will let us know. Routing to provider to review and advise. Abril Castaneda RN [place] Triage Telephone Encounter - Aydee Burton APRN TAXI CAB DRIVER - 03/16/2022 12:57 PM CDT Images from the original note were not included. She has cancelled her appt with me this Monday. I cant keep writing her notes to be out of work. I would like her to go to work and for the last 3 weeks I have provided a note to start with limitedwork days 4 hour days 3 days a week. She has not gone back yet which is not my recommendation. Please clarify is it work not letting her back? 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 Please route back to me. She can also go back on my schedule on Monday if she wants to discuss further. Aydee Burton, BREAKFAST BAR ATTENDANT- Telephone Encounter - Ziyad Frausto - 03/16/2022 10:59 AM CDT Reason for Call: Other Updated Letter Detailed comments: Patient calling stating that her work has still not given her the permission to return to work, so she's requesting an extension on the recent letter to excuse her from work until the end of next week. Scheduled follow up appointment for 03/25/22 per patient as she stated that Aydee would like to touch base with her. Please advise. Phone Number Patient can be reached at: Cell number on file: Telephone Information: Best Time: Any Can we leave a detailed message on this number? YES Call taken on 03/16/2022 at 10:59 AM by Ziyad Frausto documented in this encounter Plan of Treatment Upcoming Encounters Date Type Specialty Care Team Description 09/26/2022 Appointment Speech Therapy Obdulio Barrera MD 420 [facility] 276 [place], [place] [address] Anabel Chew, SKINNER PELTS [address] [place], [place] [address] 09/27/2022 Therapy Visit Physical Therapy Luisana Watkins, PT [address] [place] [address] 09/29/2022 Virtual Visit Pain & Palliative Marilia Deluna, Ronald PhD [address] [place] [address] 09/30/2022 Office Visit Family Practice Aydee Burton APRN TAXI CAB DRIVER [address] [place], [place] [phone] 10/03/2022 Therapy Visit Physical Therapy Una Reardon, PT [address] [place] [address] 10/10/2022 Hospital Encounter Surgery Lesly Celaya MD [address] [place], [place] [phone] 10/10/2022 Office Visit Surgery Lesly Celaya MD [address] [place] [address] Ninoska Flowers, PA-C [address] [place], [place] [phone] 10/10/2022 Surgery Surgery Lesly Cealya, EXCISION, MASSES - MD back, abdomen, [address] extremity [place], [place] [phone] 10/11/2022 Virtual Visit Pharm Clari Stoll, [facility] [address] [phone] [place], [place] [address] 10/14/2022 Appointment Speech Therapy Anabel Chew, SKINNER PELTS [facility] 516 [facility] 396 [place], [place] [address] 10/21/2022 Office Visit Pulmonology Obdulio Barrera MD 420 [facility] 276 [place] [address] 10/25/2022 PRE VISIT Charo Carter MD Previsit [address] [place], [place] [address] 10/25/2022 Office Visit Charo Carter MD [address] [place], [place] [address] 10/25/2022 Office Visit ENT Provider, 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 Belt Maker 10/28/2022 Appointment Speech Therapy Anabel Chew, SKINNER PELTS [address] [address] 11/17/2022 Appointment Speech Therapy Anabel Chew, SKINNER PELTS [address] [address] 12/23/2022 Office Visit Neurology Colby Yeung MD [address] [place] [place] [address] Scheduled Procedures Name Priority Associated Diagnoses Date/Time EXCISION, MASS, TORSO Lipoma of skin and subcuta neous 10/10/2022 7:30 AM CHILD PSYCHOLOGIST tissue documented as of this encounter Visit Diagnoses Not on filedocumented in this encounter Additional Health Concerns Assessment Noted Time PHQ-9 Depression Total Score: 20 03/02/2022 7:02 AM CD T documented as of this encounter Care Teams Passenger Service Manager Relationship Specialty Start Date End Date Aydee Burton, PCP - General Nurse Practitioner - 05/17/21 ASSOCIATE PROFESSOR OF FORESTRY TAXI CAB DRIVER Family [address] [place] [phone] Aydee Burton, Assigned PCP 04/28/21 ASSOCIATE PROFESSOR OF FORESTRY TAXI CAB DRIVER [address] [place] [phone] Louisa Hood, Assigned Neuroscience 07/11/21 ASSOCIATE PROFESSOR OF FORESTRY TAXI CAB DRIVER Provider [address] [place] [phone] Se Levy, Lead Drone Pilot 08/05/21 05/12/22 Clari Francois Pharmacist Pharmacist 08/06/21 06/07/22 Jocelyn [facility] [address] [place] [address] [place], Assigned Sleep 08/01/21 Angel Turcios, Provider [address] [place] [address] Lesly Celaya MD Assigned Surgical 09/05/21 [address] [place] [address] aTwana Patel MA [facility] 09/30/21 Worker Ramses Mcpherson Assigned OBGYN 11/07/21 MD Onesimo Provider [address] [place] [address] Obdulio Barrera MD Critical Care 01/24/22 420 [facility] 276 [place] [address] Obdulio Barrera, Assigned Pulmonology 02/06/[address] [place] [address] 276 [place], [place] [address] Lesvia Stanley, GHADA Cardiac Rehabilitation 03/03/22 03/03/23 [facility] Therapist [address] [place], [place] [address] Marilia Deluna, PhD Assigned Behavioral 02/20/22 [address] [facility] Provider [place], [place] [phone] Niyah Decker, [facility] Pharmacist Pharmacist 03/07/22 420 [facility] 812 [place], [place] [phone] Clari Poole, Pharmacist Pharmacist 03/07/22 06/15/22 [facility] [address] [facility] [place] [address] Lesvia Stanley EP Cardiac Rehabilitation 03/17/22 03/17/23 [facility] Therapist [address] [address] Mago Swift, BUILDING SERVICES TECHNICIAN Lead Drone Pilot Manufacturing Supervisor - 08/05/21 Clinical documented as of this encounter
--- OUTSIDE RECORDS SUMMARY | 2022-09-21 04:06 | XMS_ITS | Encounter Summary ---
:1980 Author Organization [place] Address [address] [place] [address] Care Team Providers Name Role Phone Aydee Burton ENERGY INFRASTRUCTURE ENGINEER PANTOGRAPHER Primary Care Provider [phone] Aydee Burton ENERGY INFRASTRUCTURE ENGINEER PANTOGRAPHER Unavailable [phone] Louisa Hood ENERGY INFRASTRUCTURE ENGINEER PANTOGRAPHER Unavailable [phone] Se Levy [facility] Unavailable Unavailable Clari Ruiz [facility] Unavailable Angel Hannah MD Unavailable Lesly Celaya MD Unavailable Tawana Patel MA Unavailable Unavailable Ramses Mcpherson MD Unavailable [phone] Obdulio Barrera MD Unavailable [phone] Obdulio Barrera MD Unavailable [phone] Lesvia Stanley Unavailable Marilia Deluna PhD Unavailable Niyah Decker [facility] Unavailable Clari Poole [facility] Unavailable Mago Swift [facility] Unavailable Reason for Visit Reason Onset Date Comments Path Results 03/16/2022 03/15/2022 Right Breas t Biopsy Encounter Details Date Type Department Care Team Description 03/16/2022 Telephone M [facility] Robles, Zaynab K, Path R esults (03/15/2022 [facility] Silvia bowling RN Right Breast Biopsy) [address] [facility], [address] [place] [address] Social History Tobacco Use Types Packs/Day Years [...] How often do you attend shinto or holiness services? Never 08/05/2021 Do you belong to [...] at Date Recorded Female 11/09/2021 7:[address] REPORTER COVID-19 Exposure Response Date Recorded In the last 10 days, have you been in contact with No / Unsu re 03/15/2022 8:01 AM CDT someone who was confirmed or suspected to have Coronavirus/COVID-19? documented as of this encounter Miscellaneous Notes Telephone Encounter - Zaynab Arboleda RN - 03/16/2022 3:06 PM CDT After review by Breast Center Radiologist, Dr. Agustín AlmonteMarta was called, verified, and given her 03/15/2022 Right Breast Biopsy results (Fibroadenoma) and recommended Follow up (Annual Screening Mammograms). Patient denies any concerns with the biopsy site. Ordering provider was informed ofthe results and follow up plan. I encouraged her to contact her doctor with any further breast concerns. Patient verbalized understanding and agrees with the plan of care. [facility] Marta Hill [id number] F, 1980 Surgical Pathology Report (Final result) [id number] Authorizing Provider: Aydee Burton APRN CNP Ordering Provider: Aydee Burton APRN CNP Ordering Location: [facility] Collected: 03/15/2022 08:22 AM Pathologist: Alea Chong MD Received: 03/15/2022 10:50 AM . Specimens A Breast, Right . . Final Diagnosis Right breast, 1.1 cm mass, 1:00, 6 cm from nipple, ultrasound guided needoe core biopsies: - Fibroadenoma and normal breast tissue. - Negative for atypia and malignancy. Zaynab Arboleda RN BSN Procedure Nurse [facility] [phone] documented in this encounter Plan of Treatment Upcoming Encounters Date Type Specialty Care Team Description 09/26/2022 Appointment Speech Therapy Obdulio Barrera MD 420 [facility] 276 [place] [address] Anabel Chew, SALES TRAINEE [facility] [address] [place] [address] 396 [place] [address] 09/27/2022 Therapy Visit Physical Therapy Luisana Watkins, PT 2[address] [place] [address] 09/29/2022 Virtual Visit Pain & Palliative Marilia Deluna, Care PhD [address] [place], [place] [address] 09/30/2022 Office Visit Family Practice Aydee Burton, ENERGY INFRASTRUCTURE ENGINEER PANTOGRAPHER [address] [place], [place] [address] 10/03/2022 Therapy Visit Physical Therapy Una Reardon, PT [address] [place] [phone] 10/10/2022 Hospital Encounter Surgery Lesly Celaya MD [address] [place], [place] [phone] 10/10/2022 Office Visit Surgery Lesly Celaya MD [address] [place] [address] Ninoska Flowers, FLORES-Ynes [address] [facility] 300 [place] [address] 10/10/2022 Surgery Surgery Lesly Celaya, EXCISION, MASSES - MD back, abdomen, [address] right lower [facility] [place] [address] 10/11/2022 Virtual Visit Clari Su, [facility] [address] [facility] [address] [place], [place] [address] 10/14/2022 Appointment Speech Therapy Anabel Chew, SALES TRAINEE [address] [place] [address] 10/21/2022 Office Visit Pulmonology Obdulio Barrera MD 420 [facility] 276 [place] [address] 10/25/2022 PRE VISIT ENT Charo Burton MD Previsit [address] [place] [address] 10/25/2022 Office Visit ENT Charo Burton MD [address] [place] [address] 10/25/2022 Office Visit ENT Provider, 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 Security Rover 10/28/2022 Appointment Speech Therapy Anabel Chew SLP [address] [address] 11/17/2022 Appointment Speech Therapy Anabel Chew SLP [address] [address] 12/23/2022 Office Visit Neurology Colby Yeung MD [address] [place] [address] Scheduled Procedures Name Priority Associated Diagnoses Date/Time EXCISION, MASS, TORSO Lipoma of skin and subcuta neous 10/10/2022 7:[address] REPORTER tissue documented as of this encounter Visit Diagnoses Not on filedocumented in this encounter Additional Health Concerns Assessment Noted Time PHQ-9 Depression Total Score: 20 03/02/2022 7:02 AM CD T documented as of this encounter Care Teams Air Conditioning Equipment Mechanic Relationship Specialty Start Date End Date Aydee Burton, PCP - General Nurse Practitioner - 05/17/21 ENERGY INFRASTRUCTURE ENGINEER PANTOGRAPHER Family [address] [place], [place] [address] Aydee Burton, Assigned PCP 04/28/21 ENERGY INFRASTRUCTURE ENGINEER PANTOGRAPHER [address] [place], [place] [address] Louisa Hood, Assigned Neuroscience 07/11/21 ENERGY INFRASTRUCTURE ENGINEER PANTOGRAPHER Provider 500 [place], [place] [address] Se Levy, Lead Short Piece Handler 08/05/21 05/12/22 Clari Francois Pharmacist Pharmacist 08/06/21 06/07/22 [facility] [address] [place], [place] [phone] [place], Assigned Sleep 08/01/21 Angel Turcios, Provider [address] [place], [place] [address] Lesly Celaya MD Assigned Surgical 09/05/21 [address] Provider [place], [place] [phone] Tawana Patel [facility] 09/30/21 Worker Ramses Mcpherson Assigned OBGYN 11/07/21 MD Onesimo Provider [address] [place], [place] [phone] Obdulio Barrera MD Critical Care 01/24/[address] [place] [phone] Obdulio Barrera, Tone Pulmonology 02/06/22 MD Provider [address] [place] [phone] Lesvia Stanley, GHADA Cardiac Rehabilitation 03/03/22 03/03/23 [facility] Therapist [address] [address] Marilia Deluna, PhD Assigned Behavioral 02/20/22 [address] [facility] Health Provider [place], [place] [phone] Niyah Decker, [facility] Pharmacist Pharmacist 03/07/22 420 [facility] 812 [place], [place] [phone] Clari Poole, Pharmacist Pharmacist 03/07/22 06/15/22 [facility] [address] [facility] [address] [place] [phone] Mago Swift, [facility] Lead Short Piece Handler Irrigationist Designer - 08/05/21 Clinical documented as of this encounter
--- OUTSIDE RECORDS SUMMARY | 2022-09-21 04:06 | XMS_ITS | Encounter Summary ---
:1980 Author Organization [place] Address [address] [place] [address] Care Team Providers Name Role Phone Aydee Burton FUEL ASSEMBLER CAPACITOR TESTER Primary Care Provider [phone] Aydee Burton FUEL ASSEMBLER CAPACITOR TESTER Unavailable [phone] Louisa Hood FUEL ASSEMBLER CAPACITOR TESTER Unavailable [phone] Se Levy [facility] Unavailable Unavailable Clari Ruiz [facility] Unavailable Angel Hannah MD Unavailable Lesly Celaya MD Unavailable Tawana Patel MA Unavailable Unavailable Ramses Mcpherson MD Unavailable [phone] Obdulio Barrera MD Unavailable [phone] Obdulio Barrera MD Unavailable [phone] Lesvia Stanley Unavailable Marilia Deluna PhD Unavailable Niyah Decker [facility] Unavailable Clari Poole [facility] Unavailable Lesvia Stanley Unavailable JamisonMago [facility] Unavailable Encounter Details Date Type Department Care Team Description 03/22/2022 Travel Social History Tobacco Use Types Packs/Day [...] How often do you attend baptism or latter-day services? Never 08/05/2021 Do you [...] at Date Recorded Female 11/09/2021 7:53 PM INDUSTRIAL SAFETY AND HEALTH MANAGER COVID-19 Exposure Response Date Recorded In the last 10 days, have you been in contact with No / Unsu re 03/22/2022 10:31 AM CDT someone who was confirmed or suspected to have Coronavirus/COVID-19? documented as of this encounter Plan of Treatment Upcoming Encounters Date Type Specialty Care Team Description 09/26/2022 Appointment Speech Therapy Obdulio Barrera MD 420 [facility] 276 [place] [address] Anabel Chew, INSPECTOR COATED FABRICS [facility] 516 [facility] 396 [place] [address] 09/27/2022 Therapy Visit Physical Therapy Luisana Watkins, PT [address] [place] [address] 09/29/2022 Virtual Visit Pain & Palliative Marilia Deluna, Care PhD [address] [place] [address] 09/30/2022 Office Visit Family Practice Aydee Burton, FUEL ASSEMBLER [facility] [address] [place] [phone] 10/03/2022 Therapy Visit Physical Therapy Una Reardon, PT [address] [place] [phone] 10/10/2022 Hospital Encounter Surgery Lesly Celaya MD [address] [place], [place] [address] 10/10/2022 Office Visit Surgery Lesly Celaya MD [address] [place] [address] Ninoska Flowers PA-C [address] [place] [address] 10/10/2022 Surgery Surgery Lesly Celaya, EXCISION, MASSES - MD back, abdomen, [address] right lower [address] extremity [place], [place] [phone] 10/11/2022 Virtual Visit Clari Su, [facility] [address] [place] [address] 10/14/2022 Appointment Speech Therapy Anabel Chew, INSPECTOR COATED FABRICS [address] [address] 10/21/2022 Office Visit Pulmonology Obdulio Barrera MD [address] [address] 10/25/2022 PRE VISIT ENT Charo Burton MD Previsit 9 [place], [place] [address] 10/25/2022 Office Visit ENT Charo Burton MD 9[address] [place], [place] [address] 10/25/2022 Office Visit ENT Provider, 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 Sweet Dough Mixer 10/28/2022 Appointment Speech Therapy Anabel Chew, INSPECTOR COATED FABRICS [address] [address] 11/17/2022 Appointment Speech Therapy Anabel Chew, INSPECTOR COATED FABRICS [address] [address] 12/23/2022 Office Visit Neurology Colby Yeung MD [address] [place] [place] [address] Scheduled Procedures Name Priority Associated Diagnoses Date/Time EXCISION, MASS, TORSO Lipoma of skin and subcuta neous 10/10/2022 7:30 AM INDUSTRIAL SAFETY AND HEALTH MANAGER tissue documented as of this encounter Visit Diagnoses Not on filedocumented in this encounter Additional Health Concerns Assessment Noted Time PHQ-9 Depression Total Score: 16 03/19/2022 7:03 AM CD T documented as of this encounter Care Teams Layer Out Plate Glass Relationship Specialty Start Date End Date Aydee Burton, PCP - General Nurse Practitioner - 05/17/21 FUEL ASSEMBLER CAPACITOR TESTER Family [address] [place], [place] [phone] Aydee Burton, Assigned PCP 04/28/21 FUEL ASSEMBLER CAPACITOR TESTER [address] [place], [place] [phone] Louisa Hood, Assigned Neuroscience 07/11/21 FUEL ASSEMBLER CAPACITOR TESTER Provider 500 [place] [address] Se Levy, Lead Family Consumer Science Teacher 08/05/21 05/12/22 Clari Francois Pharmacist Pharmacist 08/06/21 06/07/22 Jocelyn, [facility] [address] [place], [place] [phone] [place], Assigned Sleep 08/01/21 Angel Turcios, Provider [address] [place], [place] [phone] Lesly Celaya MD Assigned Surgical 09/05/21 [address] [place] [address] Tawana Patel MA [facility] 09/30/21 Worker Ramses Mcpherson Assigned OBGYN 11/07/21 MD Onesimo Provider [address] [place] [address] Obdulio Barrera MD Critical Care 01/24/22 420 [facility] 276 [place] [address] Obdulio Barrera, Assigned Pulmonology 02/06/22 MD Provider 420 [facility] 276 [place], [place] [address] Lesvia Stanley, GHADA Cardiac Rehabilitation 03/03/22 03/03/23 [facility] Therapist [address] [address] Marilia Deluna, PhD Assigned Behavioral 02/20/22 [address] [facility] [place] [place] [address] Niyah Decker, [facility] Pharmacist Pharmacist 03/07/22 420 [facility] 812 [place] [address] Clari Poole, Pharmacist Pharmacist 03/07/22 06/15/22 [facility] [address] [facility] [address] [place] [phone] Lesvia Stanley, GHADA Cardiac Rehabilitation 03/17/22 03/17/23 [facility] Therapist [address] [address] Mago Swift, [facility] Lead Family Consumer Science Teacher Stained Glass Painter - 08/05/21 Clinical documented as of this encounter
--- OUTSIDE RECORDS SUMMARY | 2022-09-21 04:06 | XMS_ITS | Encounter Summary ---
:1980 Author Organization [place] Address [address] [place] [address] Care Team Providers Name Role Phone Aydee Burton DIAL EQUIPMENT ENGINEER PAVING CREW FOREMAN Primary Care Provider [phone] Aydee Burton DIAL EQUIPMENT ENGINEER PAVING CREW FOREMAN Unavailable [phone] Louisa Hood DIAL EQUIPMENT ENGINEER PAVING CREW FOREMAN Unavailable [phone] Se Levy [facility] Unavailable Unavailable Clari Ruiz [facility] Unavailable [phone] Angel Hannah MD Unavailable Lesly Celaya MD Unavailable Tawana Patel MA Unavailable Unavailable Ramses Mcpherson MD Unavailable [phone] Obdulio Barrera MD Unavailable [phone] Obdulio Barrera MD Unavailable [phone] Lesvia Stanley Unavailable Marilia Deluna PhD Unavailable Niyah Decker [facility] Unavailable Clari Poole [facility] Unavailable Lesvia Stanley EP Unavailable JosephClari [facility] Unavailable TimmyNiyah RN Unavailable Delia Avila [facility] Unavailable [phone] [place], [place] Mel [facility] Unavailable [phone] Lorireggievictorino Niyah Caro [facility] Unavailable Mago Swift [facility] Unavailable Niyah Decker [facility] Unavailable EvertonLeela davis [facility] Unavailable SchwNiyah grossman [facility] Unavailable Reason for Visit Reason Onset Date Comments Call Back 03/23/2022 URGENT Encounter Details Date Type Department Care Team Description 03/23/2022 Telephone [facility] Obdulio Barrera Call Anam k (URGENT ) Specialty Clinic Jaquan fidencio Bailey MD [address] [facility] [address] [place] [address] [address] [facility] [address] [place] [address] [place] [address] [phone] (Wo rk) Social History Tobacco Use Types [...] often do you attend roman catholic or amish services? Never 08/05/2021 Do you belong to [...] at Date Recorded Female 11/09/2021 7:53 PM PRODUCT ACCOUNTANT COVID-19 Exposure Response Date Recorded In the last 10 days, have you been in contact with No / Unsu re 03/25/2022 9:33 AM CDT someone who was confirmed or suspected to have Coronavirus/COVID-19? documented as of this encounter Miscellaneous Notes Telephone Encounter - Ninoska Cm - 03/23/2022 8:34 AM CDT [facility] Call Center Phone Message May a detailed message be left on voicemail: yes Reason for Call: Other: Per pt is wondering if she can be seen sooner with due to her recent astma attacks. Per pt is still taking her medications but it still hard to breath and coughing every other couple of seconds. Please call pt back thank you! Action Taken: Message routed to: [facility] PULM Travel Screening: Not Applicable documented in this encounter Plan of Treatment Upcoming Encounters Date Type Specialty Care Team Description 09/26/2022 Appointment Speech Therapy Obdulio Barrera MD 420 [facility] 276 [place] [address] Anabel Chew, AIDS NURSE [place] 112[address]76 [facility] 396 [place], [place] [address] 09/27/2022 Therapy Visit Physical Therapy Luisana Watkins, PT [address] [place] [address] 09/29/2022 Virtual Visit Pain & Palliative Marilia Deluna, [facility] PhD [address] [place], [place] [address] 09/30/2022 Office Visit Family Practice Aydee Burton, DIAL EQUIPMENT ENGINEER PAVING CREW FOREMAN [address] [place], [place] [phone] 10/03/2022 Therapy Visit Physical Therapy Una Reardon, PT 2[address] [place] [address] 10/10/2022 Hospital Encounter Surgery Lesly Celaya MD [address] [place] [address] 10/10/2022 Office Visit Surgery Lesly Celaya MD [address] [place] [address] Nnioska Flowers, FLORES-Ynes [address] [place] [address] 10/10/2022 Surgery Surgery Lesly Celaya, EXCISION, MASSES - MD back, abdomen, [address] right [place] [address] 10/11/2022 Virtual Visit Clari Su, [facility] [address] [place] [id number] [place] [address] 10/14/2022 Appointment Speech Therapy Anabel Chew, AIDS NURSE [facility] 516 [facility] 396 [place] [address] 10/21/2022 Office Visit Pulmonology Obdulio Barrera MD 420 [facility] 276 [place] [address] 10/25/2022 PRE VISIT ENT Charo Burton MD Previsit [address] [place] [address] 10/25/2022 Office Visit ENT Charo Burton MD [address] [place] [address] 10/25/2022 Office Visit ENT Provider, Jeannette 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 Poiser 10/28/2022 Appointment Speech Therapy Anabel Chew, AIDS NURSE [address] [place] [address] 11/17/2022 Appointment Speech Therapy Anabel Chew, AIDS NURSE [address] [place] [address] 12/23/2022 Office Visit Neurology Colby Yeung MD [address] [address] Scheduled Procedures Name Priority Associated Diagnoses Date/Time EXCISION, MASS, TORSO Lipoma of skin and subcuta neous 10/10/2022 7:30 AM PRODUCT ACCOUNTANT tissue documented as of this encounter Visit Diagnoses Not on filedocumented in this encounter Additional Health Concerns Infection Onset Date Last Indicated Resolved Time Rule Out Pertussis 04/05/2022 04/05/2022 04/06/2022 10 :34 AM CDT Assessment Noted Time PHQ-9 Depression Total Score: 16 03/19/2022 7:03 AM CD T documented as of this encounter Care Teams Photo Mask Pattern Generator Relationship Specialty Start Date End Date Aydee Burton, PCP - General Nurse Practitioner - 05/17/21 DIAL EQUIPMENT ENGINEER PAVING CREW FOREMAN Family [address] [place], [place] [phone] Aydee Burton, Assigned PCP 04/28/21 DIAL EQUIPMENT ENGINEER PAVING CREW FOREMAN [address] [place] [employer] [place], [place] [phone] Louisa Hood, Assigned Neuroscience 07/11/21 DIAL EQUIPMENT ENGINEER PAVING CREW FOREMAN Provider 500 [place], [place] [phone] Se Levy, Lead Bus Transportation Manager 08/05/21 05/12/22 Clari Francois Pharmacist Pharmacist 08/06/21 06/07/22 [facility] [address] [place], [place] [phone] [place], Assigned Sleep 08/01/21 Angel Turcios, Provider [address] [place], [place] [address] Lesly Celaya MD Assigned Surgical 09/05/21 [address] Provider [place], [place] [phone] Tawana Patel MA [facility] 09/30/21 Worker Ramses Mcpherson Assigned OBGYN 11/07/21 MD Onesimo Provider [address] [place], [place] [phone] Obdulio Barrera MD Critical Care 01/24/[address] [place] [address] Obdulio Barrera, Assigned Pulmonology 02/06/22 Provider [address] [phone] Lesvia Stanley, GHADA Cardiac Rehabilitation 03/03/22 03/03/23 [facility] Therapist [address] [place] [address] Marilia Deluna, PhD Assigned Behavioral 02/20/22 [address] [facility] Health Provider [place], [place] [address] Niyah Decker, [facility] Pharmacist Pharmacist 03/07/22 420 [facility] 812 [place] [address] Clari Poole, Pharmacist Pharmacist 03/07/22 06/15/22 [facility] [address] [facility] [place] [address] Lesvia Stanley, GHADA Cardiac Rehabilitation 03/17/22 03/17/23 [facility] Therapist [address] [address] Clari Ruiz Assigned MTM 04/09/22 05/27/22 Jocelyn [facility] Pharmacist [address] [place], [place] [phone] Niyah Warner, Lead Bus Transportation Manager Primary Care - CC 06/27/22 RN Delia Avila, Pharmacist Pharmacist 06/07/22 [facility] [address] [place] [phone] Delia Avila, Assigned MTM 06/11/2206/24 [facility] Pharmacist [address] [place] [address] Niyah Decker, [facility] Assigned MTM 05/28/22 06/10/22 420 [facility] 812 [place] [address] Mago Swift, [facility] Lead Bus Transportation Manager Business Analyst Intern - 08/05/21 Clinical Niyah Decker [facility] Assigned MTM 06/25/22 07/29/22 420 [facility] 812 [place] [address] Leela Jarvis RP Pharmacist 07/26/22 05/15/[address] [place] [address] [address] [place] [phone] Niyah Decker [facility] Assigned MTM 08/10/22 420 [facility] 812 Pharmacist [place], [place] [phone] documented as of this encounter
--- OUTSIDE RECORDS SUMMARY | 2022-09-21 04:06 | XMS_ITS | Encounter Summary ---
:1980 Author Organization [facility] Address [address] [place] [address] Care Team Providers Name Role Phone Aydee Burton GAS COLLECTION SYSTEM OPERATOR MINESWEEPING OFFICER Primary Care Provider [phone] Aydee Burton GAS COLLECTION SYSTEM OPERATOR MINESWEEPING OFFICER Unavailable [phone] Louisa Hood GAS COLLECTION SYSTEM OPERATOR MINESWEEPING OFFICER Unavailable [phone] Se Levy [facility] Unavailable Unavailable Clari Ruiz [facility] Unavailable [phone] Angel Hannah MD Unavailable Lesly Celaya MD Unavailable Tawana Patel MA Unavailable Unavailable Ramses Mcpherson MD Unavailable [phone] Obdulio Barrera MD Unavailable [phone] Obdulio Barrera MD Unavailable [phone] Lesvia Stanley Unavailable Marilia Deluna PhD Unavailable Niyah Decker [facility] Unavailable Clari Poole [facility] Unavailable Lesvia Stanley Unavailable JamisonMago [facility] Unavailable Encounter Details Date Type Department Care Team Description 03/24/2022 Travel Social History Tobacco Use Types Packs/Day [...] How often do you attend sikh or sikh services? Never 08/05/2021 Do you [...] at Date Recorded Female 11/09/2021 7:53 PM BANKING OFFICER COVID-19 Exposure Response Date Recorded In the last 10 days, have you been in contact with No / Unsu re 03/24/2022 9:43 AM CDT someone who was confirmed or suspected to have Coronavirus/COVID-19? documented as of this encounter Plan of Treatment Upcoming Encounters Date Type Specialty Care Team Description 09/26/2022 Appointment Speech Therapy Obdulio Barrera MD 420 [facility] 276 [place] [address] Anabel Chew, TEST INSPECTION ENGINEER [facility] 516 [facility] 396 [place] [address] 09/27/2022 Therapy Visit Physical Therapy Luisana Watkins, PT 2155 [place] [address] 09/29/2022 Virtual Visit Pain & Palliative Marilia Deluna, Care PhD [address] [place] [address] 09/30/2022 Office Visit Family Practice Aydee Burton, GAS COLLECTION SYSTEM OPERATOR [facility] [address] [place] [address] [phone] 10/03/2022 Therapy Visit Physical Therapy Una Reardon, PT [address] [place] [phone] 10/10/2022 Hospital Encounter Surgery Lesly Celaya MD [address] [place], [place] [address] 10/10/2022 Office Visit Surgery Lesly Celaya MD [address] [place] [address] Ninoska Flowers PA-C [address] [place] [address] 10/10/2022 Surgery Surgery Lesly Celaya, EXCISION, MASSES - MD back, abdomen, [address] right lower BL extremity [place], [place] [phone] 10/11/2022 Virtual Visit Clari Su, [facility] [address] [place] [address] 10/14/2022 Appointment Speech Therapy Anabel Chew, TEST INSPECTION ENGINEER [address] [address] 10/21/2022 Office Visit Pulmonology Obdulio Barrera MD [address] [address]27[address] 10/25/2022 PRE VISIT ENT Charo Burton MD Previsit 9 [place], [place] [address] 10/25/2022 Office Visit ENT Charo Burton MD 909 [place], [place] [address] 10/25/2022 Office Visit ENT Provider, 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 Financial Systems Administrator 10/28/2022 Appointment Speech Therapy Anabel Chew, TEST INSPECTION ENGINEER [address] [address] 11/17/2022 Appointment Speech Therapy Anabel Chew, TEST INSPECTION ENGINEER [address] 2218[address] 12/23/2022 Office Visit Neurology Colby Yeung MD [address] [address] Scheduled Procedures Name Priority Associated Diagnoses Date/Time EXCISION, MASS, TORSO Lipoma of skin and subcuta neous 10/10/2022 7:30 AM BANKING OFFICER tissue documented as of this encounter Visit Diagnoses Not on filedocumented in this encounter Additional Health Concerns Assessment Noted Time PHQ-9 Depression Total Score: 16 03/19/2022 7:03 AM CD T documented as of this encounter Care Teams Dental Hygiene Teacher Relationship Specialty Start Date End Date Aydee Burton, PCP - General Nurse Practitioner - 05/17/21 GAS COLLECTION SYSTEM OPERATOR MINESWEEPING OFFICER Family [address] [place], [place] [phone] Aydee Burton, Assigned PCP 04/28/21 GAS COLLECTION SYSTEM OPERATOR MINESWEEPING OFFICER [address] [place], [place] [phone] Louisa Hood, Assigned Neuroscience 07/11/21 GAS COLLECTION SYSTEM OPERATOR MINESWEEPING OFFICER Provider 500 [place] [address] Se Levy, Lead Shift Superintendent 08/05/21 05/12/22 Clari Francois Pharmacist Pharmacist 08/06/21 06/07/22 Jocelyn, [facility] [address] [place], [place] [phone] [place], Assigned Sleep 08/01/21 Angel Turcios, Provider [address] [place], [place] [phone] Lesly Celaya MD Assigned Surgical 09/05/21 [address] [place] [place] [address] Tawana Patel MA Community Health 09/30/21 Worker Ramses Mcpherson Assigned OBGYN 11/07/21 MD Onesimo Provider [address] [place] [address] Obdulio Barrera MD Critical Care 01/24/22 420 [facility] 276 [place] [address] Obdulio Barrera, Assigned Pulmonology 02/06/22 MD Provider 420 [facility] 276 [place], [place] [address] Lesvia Stanley, GHADA Cardiac Rehabilitation 03/03/22 03/03/23 [facility] Therapist [address] [address] Marilia Deluna, PhD Assigned Behavioral 02/20/22 [address] [facility] [place] [place] [address] Niyah Decker, [facility] Pharmacist Pharmacist 03/07/22 420 [facility] 812 [place] [address] Clari Poole, Pharmacist Pharmacist 03/07/22 06/15/22 [facility] [address] [facility] [address] [place] [phone] Lesvia Stanley, GHADA Cardiac Rehabilitation 03/17/22 03/17/23 [facility] Therapist [address] [id number] Mago Swift, [facility] Lead Shift Superintendent Superintendent Track - 08/05/21 Clinical documented as of this encounter
--- OUTSIDE RECORDS SUMMARY | 2022-09-21 04:06 | XMS_ITS | Encounter Summary ---
:1980 Author Organization [place] Address [address] [place] [address] Care Team Providers Name Role Phone Aydee Burton BUS BOY DRAWBRIDGE TENDER Primary Care Provider [phone] Aydee Burton BUS BOY DRAWBRIDGE TENDER Unavailable [phone] Louisa Hood BUS BOY DRAWBRIDGE TENDER Unavailable [phone] Se Levy [facility] Unavailable Unavailable Clari Ruiz [facility] Unavailable [phone] Angel Hannah MD Unavailable Lesly Celaya MD Unavailable Tawana Patel MA Unavailable Unavailable Ramses Mcpherson MD Unavailable [phone] Obdulio Barrera MD Unavailable [phone] Obdulio Barrera MD Unavailable [phone] Lesvia Stanley Unavailable Marilia Deluna PhD Unavailable Niyah Decker [facility] Unavailable Clari Poole [facility] Unavailable Lesvia Stanley Unavailable JamisonMago [facility] Unavailable Encounter Details Date Type Department Care Team Description 03/18/2022 Travel Social History Tobacco Use Types Packs/Day [...] er 08/05/2021 How often do you attend latter-day or jain services? Never 08/05/2021 Do you belong to any clubs or organizations such as latter-day N o 08/05/2021 groups, unions, fraternal or [...] to sleep or slept in a senior living (including now)? Sex Assigned at Date Recorded Female 11/09/2021 7:53 PM COMMUNITY NUTRITION EDUCATOR COVID-19 Exposure Response Date Recorded In the last 10 days, have you been in contact with No / Unsu re 03/15/2022 8:01 AM CDT someone who was confirmed or suspected to have Coronavirus/COVID-19? documented as of this encounter Plan of Treatment Upcoming Encounters Date Type Specialty Care Team Description 09/26/2022 Appointment Speech Therapy Obdulio Barrera MD 420 [facility] 276 [place] [address] Anabel Chew, HEALTH AND FITNESS INSTRUCTOR [facility] 516 [facility] 396 [place] [address] 09/27/2022 Therapy Visit Physical Therapy Luisana Watkins, PT 2155 [place] [address] 09/29/2022 Virtual Visit Pain & Palliative Marilia Deluna, Care PhD [address] [place] [address] 09/30/2022 Office Visit Family Practice Aydee Burton, BUS BOY [facility] [address] [place] [phone] 10/03/2022 Therapy Visit Physical Therapy Una Reardon, PT 2[address] [place] [phone] 10/10/2022 Hospital Encounter Surgery Lesly Celaya MD [address] [place], [place] [address] 10/10/2022 Office Visit Surgery Lesly Celaya MD [address] [place] [address] Ninoska Flowers PA-C [address] [place] [address] 10/10/2022 Surgery Surgery Lesly Celaya, EXCISION, MASSES - MD back, abdomen, [address] right lower BL extremity [place], [place] [phone] 10/11/2022 Virtual Visit Clari Su, [facility] [address] [place] [address] 10/14/2022 Appointment Speech Therapy Anabel Chew, HEALTH AND FITNESS INSTRUCTOR [address] [address] 10/21/2022 Office Visit Pulmonology Obdulio Barrera MD [address] [address] 10/25/2022 PRE VISIT ENT Charo Burton MD Previsit 9 [place], [place] [address] 10/25/2022 Office Visit ENT Charo Burton MD 909 [place], [place] [address] 10/25/2022 Office Visit ENT Provider, 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 Power Plant Electrician 10/28/2022 Appointment Speech Therapy Anabel Chew, HEALTH AND FITNESS INSTRUCTOR [address] [address] 11/17/2022 Appointment Speech Therapy Anabel Chew, HEALTH AND FITNESS INSTRUCTOR [address] [address] 12/23/2022 Office Visit Neurology Colby Yeung MD [address] [place] [place] [address] Scheduled Procedures Name Priority Associated Diagnoses Date/Time EXCISION, MASS, TORSO Lipoma of skin and subcuta neous 10/10/2022 7:30 AM COMMUNITY NUTRITION EDUCATOR tissue documented as of this encounter Visit Diagnoses Not on filedocumented in this encounter Additional Health Concerns Assessment Noted Time PHQ-9 Depression Total Score: 16 03/19/2022 7:03 AM CD T documented as of this encounter Care Teams Finished Goods Inspector Relationship Specialty Start Date End Date Aydee Burton, PCP - General Nurse Practitioner - 05/17/21 BUS BOY DRAWBRIDGE TENDER Family [address] [place], [place] [phone] Aydee Burton, Assigned PCP 04/28/21 BUS BOY DRAWBRIDGE TENDER [address] [place], [place] [phone] Louisa Hood, Assigned Neuroscience 07/11/21 BUS BOY DRAWBRIDGE TENDER Provider 500 [place] [address] Se Levy, Lead Sort Line 08/05/21 05/12/22 Clari Francois Pharmacist Pharmacist 08/06/21 06/07/22 Jocelyn, [facility] [address] [place], [place] [phone] [place], Assigned Sleep 08/01/21 Angel Turcios, Provider [address] [place], [place] [phone] Lesly Celaya MD Assigned Surgical 09/05/21 [address] [place] [address] Tawana Patel MA Community Health 09/30/21 Worker Ramses Mcpherson Assigned OBGYN 11/07/21 MD Onesimo Provider [address] [place] [address] Obdulio Barrera MD Critical Care 01/24/22 420 [facility] [address] [place] [address] Obdulio Barrera, Assigned Pulmonology 02/06/22 MD Provider 420 [facility] 276 [place], [place] [address] Lesvia Stanley, GHADA Cardiac Rehabilitation 03/03/22 03/03/23 [facility] Therapist [address] [id number] Marilia Deluna, PhD Assigned Behavioral 02/20/22 [address] [facility] [place] [address] Niyah Decker, [facility] Pharmacist Pharmacist 03/07/22 420 [facility] 812 [place] [address] Clari Poole, Pharmacist Pharmacist 03/07/22 06/15/22 [facility] [address] [facility] [address] [place] [phone] Lesvia Stanley, GHADA Cardiac Rehabilitation 03/17/22 03/17/23 [facility] Therapist [address] [address] Mago Swift, [facility] Lead Sort Line Bank Compliance Officer - 08/05/21 Clinical documented as of this encounter
--- OUTSIDE RECORDS SUMMARY | 2022-09-21 04:06 | XMS_ITS | Encounter Summary ---
:1980 Author Organization [place] Address [address] [place] [address] Care Team Providers Name Role Phone Aydee Burton SENIOR MANAGER OTR OWNER OPERATOR TRUCK DRIVER Primary Care Provider [phone] Aydee Burton SENIOR MANAGER OTR OWNER OPERATOR TRUCK DRIVER Unavailable [phone] Louisa Hood SENIOR MANAGER OTR OWNER OPERATOR TRUCK DRIVER Unavailable [phone] Se Levy [facility] Unavailable Unavailable Clari Ruiz [facility] Unavailable [phone] Angel Hannah MD Unavailable Lesly Celaya MD Unavailable Tawana Patel MA Unavailable Unavailable Ramses Mcpherson MD Unavailable [phone] Obdulio Barrera MD Unavailable [phone] Obdulio Barrera MD Unavailable [phone] Lesvia Stanley Unavailable Marilia Deluna PhD Unavailable Niyah Decker [facility] Unavailable Clari Poole [facility] Unavailable Lesvia Stanley Unavailable JamisonMago [facility] Unavailable Reason for Visit Reason Comments gene sight testing Encounter Details Date Type Department Care Team Description 03/29/2022 Virtual Visit [facility] Lory Nunez P TSD (post- traumatic stress disorder) (Primary Dx); [facility] [place] PAGloriaC Severe episode of recurrent major depres sive disorder, without psychotic features (H); [facility] [address] [place] [address] SHAMEKA (g eneralized anxiety disorder) [place], [place] [phone] Social History Tobacco Use Types Packs/Day Years [...] How often do you attend orthodox or yarsanism services? Never 08/05/2021 Do you [...] at Date Recorded Female 11/09/2021 7:53 PM BREAST SURGEON COVID-19 Exposure Response Date Recorded In the last 10 days, have you been in contact with No / Unsu re 03/29/2022 2:27 PM CDT someone who was confirmed or suspected to have Coronavirus/COVID-19? documented as of this encounter Progress Notes Lory Nunez PA-C - 03/29/2022 11:00 AM CDT Marta is a 42 year old who is being evaluated via a billable video visit. How would you like to obtain your AVS? MyChart If the video visit is dropped, the invitation should be resent by: Text to cell phone: [phone] Will anyone else be joining your video visit? No Video Start Time: 11:07 AM Assessment & Plan PTSD (post-traumatic stress disorder) Severe episode of recurrent major depressive disorder, without psychotic features (H) SHAMEKA (generalized anxiety disorder) Patient has tried numerous medications for PTSD/depression/anxiety. Is interested to know if augmentation would be beneficial as she does not feel optimized at her current regimen. Detailed discussion regarding GeneSight testing and the benefits and clinical implications that it can provide. All questions answered to the patient satisfaction. The kit will be shipped to her and she will return this. Zaira keep her apprised of the result and fax the results to her psychiatrist upon receipt. - GeneSight MTHFR - GeneSight Psychotropic 35 minutes spent on the date of the encounter doing chart review, history and exam, documentation and further activities per the note BMI: Estimated body mass index is 33.67 kg/m?? as calculated from the following: Height as of 03/25/22: 1.702 m (5' 7). Weight as of 03/25/22: 97.5 kg (215 lb). Weight management plan: Patient was referred to their PCP to discuss a diet and exercise plan. Return in about 1 week (around 04/05/2022) for I will send [employer] update with results when available. Lory Nunez PA-C [facility] Marta is a 42 year old who presents for the following health issues HPI Depression/Anxiety/PTSD: Patient is not meeting PHQ9 goal <5 or GAD7 goal <4. Patient is having several side effects due to mental health medications. Per uptodate, bupropion may be contributing to irritability and hallucinations, quetiapine may be contributing to weight gain and drowsiness, duloxetine may be contributing to irritability, sleep disorders, and drowsiness, and lamotrigine may be contributing to drowsiness, irritability, sleep disorders, and hallucinations. Due to unclear historyof medications tried and significant side effects, would benefit from completing GeneSight testing to determine potentially better treatment options and minimize side effects if possible. ?? Current medications - Wellbutrin XL 300mg - Quetiapine 100mg - Quetiapine 200mg - Lamotrigine 100mg Lamotrigine 200mg - Duloxetine 60mg Gabapentin 400mg QID- Has been on medications that are not effective - does not remember all of them, however Previously tried: Prozac - bad side effects - hypersomnia - depressed Zoloft - not working after a while Follows with psychiatry nurse practitioner and plans to have her continue to manage medication -seesher every 3 months: Monsurat ???Haylee?? Ngozi-Ritu REALN, OTR OWNER OPERATOR TRUCK DRIVER, PMHNP-[place] [address] FAX: Review of Systems Constitutional, HEENT, cardiovascular, pulmonary, GI, , musculoskeletal, neuro, skin, endocrine and psych systems are negative, except as otherwise noted. Objective Vitals: No vitals were obtained today [...] normal speech and appearance well-groomed. Video-Visit Details Type of service: Video Visit Video End Time:11:29 AM Originating Location (pt. Location): Home Distant Location (provider location): [facility] Platform used for Video Visit: Becka documented in this encounter Plan of Treatment Upcoming Encounters Date Type Specialty Care Team Description 09/26/2022 Appointment Speech Therapy Obdulio Barrera MD 420 [facility] 276 [place], [place] [address] Anabel Chew, SOCIAL WELFARE CLERK [facility] 516 [facility] 396 [place], [place] [address] 09/27/2022 Therapy Visit Physical Therapy Luisana Watkins, PT 2[address] [place] [address] 09/29/2022 Virtual Visit Pain & Palliative Marilia Deluna, [facility] PhD [address] [place] [address] 09/30/2022 Office Visit Family Practice Aydee Burton, SENIOR MANAGER OTR OWNER OPERATOR TRUCK DRIVER [address] [place], [place] [phone] 10/03/2022 Therapy Visit Physical Therapy Una eRardon, PT 2[address] [place] [phone] 10/10/2022 Hospital Encounter Surgery Lesly Celaya MD [address] [place], [place] [phone] 10/10/2022 Office Visit Surgery Lesly Celaya MD [address] [place] [address] Ninoska Flowers PA-C [address] [facility] 300 [place] [address] 10/10/2022 Surgery Surgery Lesly Celaya, EXCISION, MASSES - MD back, abdomen, [address] [place] [address] 10/11/2022 Virtual Visit Clari Su, [facility] [address] [place] [phone] [place], [place] [address] 10/14/2022 Appointment Speech Therapy Anabel Chew, SOCIAL WELFARE CLERK [address] [address] 10/21/2022 Office Visit Pulmonology Obdulio Barrera MD [address] [address] 10/25/2022 PRE VISIT ENT Charo Burton MD Previsit 909 [place], [place] [address] 10/25/2022 Office Visit ENT Charo Burton MD [address] [place] [address] 10/25/2022 Office Visit ENT Provider, 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 Deli Worker 10/28/2022 Appointment Speech Therapy Anabel Chew SOCIAL WELFARE CLERK [address] [address] 11/17/2022 Appointment Speech Therapy Anabel Chew SLP [address] [address] 12/23/2022 Office Visit Neurology Colby Yeung MD [address] [place] [address] Scheduled Procedures Name Priority Associated Diagnoses Date/Time EXCISION, MASS, TORSO Lipoma of skin and subcuta neous 10/10/2022 7:30 AM BREAST SURGEON tissue documented as of this encounter Results GeneSight Psychotropic (04/02/2022) P athologist Signature See Scanned [facility] Report Specimen (Source) Anatomical Location Collection Method / Collectio n Time Received Time / Laterality Volume Buccal swab ORAL CAVITY 04/02/2022 STRUCTURE / Unknown Narrative This result has an attachment that is no t available. Lory TANNER-C LAB - BODY FLUIDS ORDERABLES Performing Organization Address City/[facility]/ZIP Code Phon e Number [facility] [address] [place] [address] (ABNORMAL) GeneSight MTHFR (04/02/2022) P athologist Signature See Scanned [facility] Report Specimen (Source) Anatomical Location Collection Method / Collectio n Time Received Time / Laterality Volume Buccal swab ORAL CAVITY 04/02/2022 STRUCTURE / Unknown Narrative This result has an attachment that is no t available. Lory Debra TANNER-C LAB - BODY FLUIDS ORDERABLES Performing Organization Address City/[facility] e Number [facility] [address] [place] [address] documented in this encounter Visit Diagnoses Diagnosis PTSD (post-traumatic stress disorder) - Primary Posttraumatic stress disorder Severe episode of recurrent [...] of this encounter Care Teams Director Of Sustainable Design Relationship Specialty Start Date End Date Aydee Burton, PCP - General Nurse Practitioner - 05/17/21 SENIOR MANAGER OTR OWNER OPERATOR TRUCK DRIVER Family [address] [place] [id number] Aydee Burton, Assigned PCP 04/28/21 SENIOR MANAGER OTR OWNER OPERATOR TRUCK DRIVER [address] [place], [place] [phone] Louisa Hood, Assigned Neuroscience 07/11/21 SENIOR MANAGER OTR OWNER OPERATOR TRUCK DRIVER Provider 500 [place], [place] [address] Se Levy, Lead Painter Helper Sign 08/05/21 05/12/22 TYPE PROOF REPRODUCERClari Ordonez Pharmacist Pharmacist 08/06/21 06/07/22 Jocelyn, [facility] [address] [place] [address] [place], Assigned Sleep 08/01/21 Angel Turcios, Provider [address] [place] [address] Lesly Celaya MD Assigned Surgical 09/05/21 [address] Provider [place], [place] [phone] [facility] 09/30/21 Worker Ramses Mcpherson Assigned OBGYN 11/07/21 MD Onesimo Provider [address] [place] [address] Obdulio Barrera MD Critical Care 01/24/[address] [place] [id number] Obdulio Barrera, Assigned Pulmonology 02/06/[address] [place] [address]605 Lesvia Stanley EP Cardiac Rehabilitation 03/03/22 03/03/23 [facility] Therapist [address] [address] Marilia Deluna, PhD Assigned Behavioral 02/20/22 [address] [facility] [place] [address] Niyah Decker, [facility] Pharmacist Pharmacist 03/07/22 420 [facility] 812 [place], [place] [address] Clari Poole, Pharmacist Pharmacist 03/07/22 06/15/22 [facility] [address] [facility] [address] [address] Lesvia Stanley EP Cardiac Rehabilitation 03/17/22 03/17/23 [facility] Therapist [address] [id number] Mago Swift CIRCULAR GANG SAW OPERATOR Lead Painter Helper Sign Precinct Police Sergeant - 08/05/21 Clinical documented as of this encounter
--- OUTSIDE RECORDS SUMMARY | 2022-09-21 04:06 | XMS_ITS | Encounter Summary ---
:1980 Author Organization [facility] Address [address] [place] [address] Care Team Providers Name Role Phone Aydee Burton MANAGER DISASTER RECOVERY CENTRAL SUPPLY MANAGER Primary Care Provider [phone] Aydee Burton MANAGER DISASTER RECOVERY CENTRAL SUPPLY MANAGER Unavailable [phone] Louisa Hood MANAGER DISASTER RECOVERY CENTRAL SUPPLY MANAGER Unavailable [phone] Se Levy [facility] Unavailable Unavailable Clari Ruiz [facility] Unavailable [phone] Angel Hannah MD Unavailable Lesly Celaya MD Unavailable Tawana Patel MA Unavailable Unavailable Ramses Mcpherson MD Unavailable [phone] Obdulio Barrera MD Unavailable [phone] Obdulio Barrera MD Unavailable [phone] Lesvia Stanley Unavailable Marilia Deluna PhD Unavailable Niyah Decker [facility] Unavailable Clari Poole [facility] Unavailable Lesvia Stanley EP Unavailable JamisonMago [facility] Unavailable Reason for Visit Reason Comments Follow Up Encounter Details Date Type Department Care Team Description 03/25/2022 Office Visit [facility] Aydee Burton Chronic co ugh (Primary Dx); [facility] [place] ELADIO Mendez CENTRAL SUPPLY MANAGER Bronchospasm; [address] [place] [address] 5 [phone] Social History Tobacco Use Types Packs/Day Years [...] How often do you attend hoahaoism or pentecostalism services? Never 08/05/2021 Do you [...] at Date Recorded Female 11/09/2021 7:53 PM TIRE MAN COVID-19 Exposure Response Date Recorded In the last 10 days, have you been in contact with No / Unsu re 04/15/2022 8:42 AM CDT someone who was confirmed or suspected to have Coronavirus/COVID-19? documented as of this encounter Last Filed Vital Signs Vital Sign Reading Time Taken Comments Blood Pressure 128/76 03/25/2022 9:44 AM CDT Pulse 108 03/25/2022 9:44 AM CDT Temperature 36.8 ??C (98.3 ??F) 03/25/2022 9:44 AM CDT Respiratory Rate - - Oxygen Saturation 97% 03/25/2022 9:44 AM CDT Inhaled Oxygen Concentration - - Weight 97.5 kg (215 lb) 03/25/2022 9:44 AM CDT Height 170.2 cm (5' 7) 03/25/2022 9:44 AM CDT Body Mass Index 33.67 03/25/2022 9:44 AM CDT documented in this encounter Progress Notes Aydee Burton APRN CNP - 03/25/2022 9:50 AM CDT Images from the original note were not included. Assessment & Plan Chronic cough Bronchospasm Hoarseness Chronic. Stable. Would encourage her to go back to work in some capacity with restrictions as dictated in her work note. Once we know how she does at work we can adjust accordingly. Follow-up with specialties including pulmonology and ruling out ENT or allergy cause. Marta verbalizes understanding of plan of care and is in agreement. Return in about 4 days (around 03/29/2022) for Recheck. Aydee Burton APRN CNP [facility] Marta is a 42 year old who presents for the following health issues : follow up History of Present Illness Asthma: She presents for follow up of asthma. She has some cough, some wheezing, and some shortness of breath. She is using a relief medication every 4 hours. She does not miss any doses of her controller medication throughout the week.Patient is aware of the following triggers: unaware of any triggers. The patient has not had a visit to the Emergency Room, Urgent Care or Hospital due to asthma sincethe last clinic visit. Mental Health Follow-up: Today's PHQ-9 PHQ-9 Total Score: 16 PHQ-9 Q9 Thoughts of better off /self-harm past 2 weeks : (P) Not at all How difficult have these problems made it for you to do your work, take care of things at home, or get along with other people: Very difficult She eats 2-3 servings of fruits and vegetables daily.She consumes 2 sweetened beverage(s) daily.She exercises with enough effort to increase her heart rate 9 or less minutes per day. She exercises withenough effort to increase her heart rate 5 days per week. She is taking medications regularly. Currently from [facility] - more severe asthma attacks - inhaler not helping. Wake from an asthma attack a few times last week. Worse when talks and/or walks. Could not stop coughing after walking back from field where daughter was playing softball to car. Furniture Sales Associate appt today - can only do injections but are $7000 each. Wants pt to see Certified Credit Counselor and ENT first. Letter from work that needs to be completed, will get printed or send in Rebls. Allergy next week march 29. March 31 ENT. CTPE (02/2022) - no acute abnormality, no PE CXR (01/2022) - clear CTPE (01/2022) - mild air-trapping, mild fibroatelectasis, no PE PFTs (11/2021) - normal pulmonary function TTE (10/2021) - EF 55-60% Review of Systems Constitutional, HEENT, cardiovascular, pulmonary, GI, , musculoskeletal, neuro, skin, endocrine and psych systems are negative, except as otherwise noted in the HPI. Objective BP 128/76 (BP Location: Left arm, Patient Position: Chair, Cuff Size: Adult Large) Pulse 108 Temp 98.3 ??F (36.8 ??C) (Tympanic) Ht 1.702 m (5' 7) Wt 97.5 kg (215 lb) LMP 12/11/2021 (Exact Date) SpO2 97% No BMI 33.67 kg/m?? Body mass index is 33.67 kg/m??. Physical Exam GENERAL: healthy, alert and no distress RESP: lungs clear to auscultation - no rales, rhonchi or wheezes; intermittent dry hacking cough CV: regular rate and rhythm, normal S1 S2, no S3 or S4, no murmur, click or rub, no peripheral edemaand peripheral pulses strong PSYCH: mentation appears normal, affect normal/bright documented in this encounter Plan of Treatment Upcoming Encounters Date Type Specialty Care Team Description 09/26/2022 Appointment Speech Therapy Obdulio Barrera MD [address] [facility] 276 [place], [place] [address] Anabel Chew, QUALITY CONTROL [address] [place] [address] 09/27/2022 Therapy Visit Physical Therapy Luisana Watkins, PT [address] [place] [address] 09/29/2022 Virtual Visit Pain & Palliative Marilia Deluna, Care PhD [address] [place] [address] 09/30/2022 Office Visit Family Practice Aydee Burton APRN CENTRAL SUPPLY MANAGER [address] [place] [phone] 10/03/2022 Therapy Visit Physical Therapy Una Reardon, PT [address] [place] [phone] 10/10/2022 Hospital Encounter Surgery Lesly Celaya MD [address] [facility] [place], [place] [phone] 10/10/2022 Office Visit Surgery Lesly Celaya MD [address] [place], [place] [phone] Ninoska Flowers PA-C [address] [place] [address] 10/10/2022 Surgery Surgery Lesly Celaya, EXCISION, MASSES - MD back, abdomen, [address] right [address] [place] [address] 10/11/2022 Virtual Visit Pharm Clari Stoll, [facility] [address] [phone] [place] [address] 10/14/2022 Appointment Speech Therapy Anabel Chew, QUALITY CONTROL [address] [phone] 10/21/2022 Office Visit Pulmonology Obdulio Barrera MD [address] [place] [phone] 10/25/2022 PRE VISIT ENT Charo Burton MD Previsit [address] [place] [phone] 10/25/2022 Office Visit Charo Carter MD [address] [place] [address] 880505 10/25/2022 Office Visit ENT Provider, 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 Cellophaner 10/28/2022 Appointment Speech Therapy Anabel Chew, QUALITY CONTROL [address] [phone] 11/17/2022 Appointment Speech Therapy Anabel Chew, QUALITY CONTROL [address] [address] 12/23/2022 Office Visit Neurology Colby Yeung MD [address] [place] [address] Scheduled Procedures Name Priority Associated Diagnoses Date/Time EXCISION, MASS, TORSO Lipoma of skin and subcuta neous 10/10/2022 7:30 AM TIRE MAN tissue documented as of this encounter Visit Diagnoses Diagnosis Chronic cough - Primary Cough Bronchospasm Acute bronchospasm Hoarseness Dysphonia Lipoma of skin and subcutaneous tissue Lipoma of other skin and subcutaneous ti ssue documented in this encounter Additional Health Concerns Assessment Noted Time PHQ-9 Depression Total Score: 16 03/25/2022 7:29 AM CD T documented as of this encounter Care Teams Regional Loss Prevention Manager Relationship Specialty Start Date End Date Aydee Burton, PCP - General Nurse Practitioner - 05/17/21 MANAGER DISASTER RECOVERY CENTRAL SUPPLY MANAGER Family [address] [place] [address] Aydee Burton, Assigned PCP 04/28/21 MANAGER DISASTER RECOVERY CENTRAL SUPPLY MANAGER [address] [place] [address] Louisa Hood, Assigned Neuroscience 07/11/21 MANAGER DISASTER RECOVERY CENTRAL SUPPLY MANAGER Provider [address] [place], [place] [phone] Se Levy, Lead Roofing Applicator 08/05/21 05/12/22 Clari Francois Pharmacist Pharmacist 08/06/21 06/07/[address] [facility] [address] [place] [address] [place], Assigned Sleep 08/01/21 Angel Turcios, Provider [address] [place] [address] Lesly Celaya MD Assigned Surgical 09/05/21 [address] [place] [address] Tawana Patel MA [facility] Health 09/30/21 Worker Ramses Mcpherson Assigned OBGYN 11/07/21 MD Onesimo Provider [address] [place], [place] [address] Obdulio Barrera MD Critical Care 01/24/[address] [place] [address] 276 [place], [place] [phone] Obdulio Barrera, Assigned Pulmonology 02/06/22 MD Provider [address] [place] [phone] Lesvia Stanley, GHADA Cardiac Rehabilitation 03/03/22 03/03/23 [facility]OSP Therapist [address] [id number] Marilia Deluna, PhD Assigned Behavioral 02/20/22 [address] [facility] [place] [address] Niyah Decker, [facility] Pharmacist Pharmacist 03/07/22 420 [facility] 812 [place] [address] Clari Poole, Pharmacist Pharmacist 03/07/22 06/15/[address] [facility] [address] [facility] [place] [address] Lesvia Stanley, GHADA Cardiac Rehabilitation 03/17/22 03/17/23 [facility] HOSP Therapist [address] [id number] Mago Swift, [facility] Lead Roofing Applicator Registered Nurse First Assistant - 08/05/21 Clinical documented as of this encounter
--- OUTSIDE RECORDS SUMMARY | 2022-09-21 04:06 | XMS_ITS | Encounter Summary ---
:1980 Author Organization [place] Address [address] [place] [address] Care Team Providers Name Role Phone Aydee Burton OFFICE MACHINE INSPECTOR JEWELRY DIPPER Primary Care Provider [phone] Aydee Burton OFFICE MACHINE INSPECTOR JEWELRY DIPPER Unavailable [phone] Louisa Hood OFFICE MACHINE INSPECTOR JEWELRY DIPPER Unavailable [phone] Se Levy [facility] Unavailable Unavailable Clari Ruiz [facility] Unavailable Angel Hannah MD Unavailable Lesly Celaya MD Unavailable Tawana Patel MA Unavailable Unavailable Ramses Mcpherson MD Unavailable [phone] Obdulio Barrera MD Unavailable [phone] Obdulio Barrera MD Unavailable [phone] Lesvia Stanley Unavailable Marilia Deluna PhD Unavailable Niyah Decker [facility] Unavailable Clari Poole [facility] Unavailable Lesvia Stanley Unavailable JamisonMago [facility] Unavailable Encounter Details Date Type Department Care Team Description 03/25/2022 Travel Social History Tobacco Use Types Packs/Day [...] How often do you attend zoroastrianism or protestant services? Never 08/05/2021 Do you [...] at Date Recorded Female 11/09/2021 7:53 PM CYBER SPECIAL AGENT COVID-19 Exposure Response Date Recorded In the last 10 days, have you been in contact with No / Unsu re 03/25/2022 9:33 AM CDT someone who was confirmed or suspected to have Coronavirus/COVID-19? documented as of this encounter Plan of Treatment Upcoming Encounters Date Type Specialty Care Team Description 09/26/2022 Appointment Speech Therapy Obdulio Barrera MD 420 [facility] 276 [place] [address] Anabel Chew, REHABILITATION SUPERVISOR [facility] [address] [facility] 396 [place] [address] 09/27/2022 Therapy Visit Physical Therapy Luisana Watkins, PT [address] [place] [address] 09/29/2022 Virtual Visit Pain & Palliative Marilia Deluna, Care PhD [address] [place] [address] 09/30/2022 Office Visit Family Practice Aydee Burton, OFFICE MACHINE INSPECTOR [facility] [address] [place] [phone] 10/03/2022 Therapy Visit Physical Therapy Una Reardon, PT [address] [place] [phone] 10/10/2022 Hospital Encounter Surgery Lesly Celaya MD [address] [place], [place] [address] 10/10/2022 Office Visit Surgery Lesly Celaya MD [address] [place] [address] Ninoska Flowers PA-C [address] [place] [address] 10/10/2022 Surgery Surgery Lesly Celaya, EXCISION, MASSES - MD back, abdomen, [address] right lower [address] extremity [place], [place] [phone] 10/11/2022 Virtual Visit Clari Su, [facility] [address] [place] [address] 10/14/2022 Appointment Speech Therapy Anabel Chew, REHABILITATION SUPERVISOR [address] [address] 10/21/2022 Office Visit Pulmonology Obdulio Barrera MD [address] [address] 10/25/2022 PRE VISIT ENT Charo Burton MD Previsit [address] [place], [place] [address] 10/25/2022 Office Visit ENT Charo Burton MD [address] [place], [place] [address] 10/25/2022 Office Visit ENT Provider, 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 Manager Drug 10/28/2022 Appointment Speech Therapy Anabel Chew, REHABILITATION SUPERVISOR [address] [phone] 11/17/2022 Appointment Speech Therapy Anabel Chew, REHABILITATION SUPERVISOR [address] [address]15[address] 12/23/2022 Office Visit Neurology Colby Yeung MD [address] [place] [address] Scheduled Procedures Name Priority Associated Diagnoses Date/Time EXCISION, MASS, TORSO Lipoma of skin and subcuta neous 10/10/2022 7:30 AM CYBER SPECIAL AGENT tissue documented as of this encounter Visit Diagnoses Not on filedocumented in this encounter Additional Health Concerns Assessment Noted Time PHQ-9 Depression Total Score: 16 03/25/2022 7:29 AM CD T documented as of this encounter Care Teams Operator Maintainer Relationship Specialty Start Date End Date Aydee Burton, PCP - General Nurse Practitioner - 05/17/21 OFFICE MACHINE INSPECTOR JEWELRY DIPPER Family [address] [place], [place] [phone] Aydee Burton, Assigned PCP 04/28/21 OFFICE MACHINE INSPECTOR JEWELRY DIPPER [address] [place], [place] [phone] Louisa Hood, Assigned Neuroscience 07/11/21 OFFICE MACHINE INSPECTOR JEWELRY DIPPER Provider 500 [place] [address] Se Levy, Lead Hadoop Engineer 08/05/21 05/12/22 Clari Francois Pharmacist Pharmacist 08/06/21 06/07/22 Jocelyn, [facility] [address] [place], [place] [phone] [place], Assigned Sleep 08/01/21 Angel Turcios, Provider [address] [place], [place] [phone] Lesly Celaya MD Assigned Surgical 09/05/21 [address] [place] [place] [address] Tawana Patel MA Community Health 09/30/21 Worker Ramses Mcpherson Assigned OBGYN 11/07/21 MD Onesimo Provider [address] [place] [address] Obdulio Barrera MD Critical Care 01/24/22 420 [facility] [address] [place] [address] Obdulio Barrera, Assigned Pulmonology 02/06/22 MD Provider 420 [facility] [address] [place], [place] [address] Lesvia Stanley, GHADA Cardiac Rehabilitation 03/03/22 03/03/23 [facility] Therapist [address] [id number] Marilia Deluna, PhD Assigned Behavioral 02/20/22 [address] [facility] [place] [address] Niyah Decker, [facility] Pharmacist Pharmacist 03/07/22 420 [facility] 8[address] [place] [address] Clari Poole, Pharmacist Pharmacist 03/07/22 06/15/22 [facility] [address] [facility] [address] [place] [phone] Lesvia Stanley, GHADA Cardiac Rehabilitation 03/17/22 03/17/23 [facility] Therapist [address] [id number] Mago Swift, [facility] Lead Hadoop Engineer Maintenance Carpenter - 08/05/21 Clinical documented as of this encounter
--- OUTSIDE RECORDS SUMMARY | 2022-09-21 04:06 | XMS_ITS | Encounter Summary ---
:1980 Author Organization [place] Address [address] [place] [address] Care Team Providers Name Role Phone Aydee Burton TRANS ROUTER RADIATION ONCOLOGY NURSE Primary Care Provider [phone] Aydee Burton TRANS ROUTER RADIATION ONCOLOGY NURSE Unavailable [phone] Louisa Hood TRANS ROUTER RADIATION ONCOLOGY NURSE Unavailable [phone] Se Levy [facility] Unavailable Unavailable Clari uRiz [facility] Unavailable Angel Hannah MD Unavailable Lesly Celaya MD Unavailable Tawana Patel MA Unavailable Unavailable Ramses Mcpherson MD Unavailable [phone] Obdulio Barrera MD Unavailable [phone] Obdulio Barrera MD Unavailable [phone] Lesvia Stanley Unavailable Marilia Deluna PhD Unavailable Niyah Decker [facility] Unavailable Clari Poole [facility] Unavailable Lesvia Stanley EP Unavailable Mago Swift Terri [facility] Unavailable Reason for Visit Reason Comments Follow Up Encounter Details Date Type Department Care Team Description 03/25[facility] Moderate persistent Specialty Clinic MD Leo asthma without [place] [address] complication (Primary [address] [facility] [address]) [address] [place] [address] [phone] Social History Tobacco Use Types Packs/Day Years [...] How often do you attend gnosticist or confucianism services? 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 documented as of this encounter Last Filed Vital Signs Vital Sign Reading Time Taken Comments Blood Pressure 122/83 03/25/2022 8:03 AM CDT Pulse 101 03/25/2022 8:03 AM CDT Temperature - - Respiratory Rate - - Oxygen Saturation 98% 03/25/2022 8:03 AM CDT Inhaled Oxygen Concentration - - Weight 98.2 kg (216 lb 8 oz) 03/25/2022 8:03 AM CDT Height 170.2 cm (5' 7) 03/25/2022 8:03 AM CDT Body Mass Index 33.91 03/25/2022 8:03 AM CDT documented in this encounter Patient Instructions Patient InstructionsObdulio Barrera MD - 03/25/2022 8:28 AM CDT For now, continue your inhaler therapy for asthma. I question if there is something else going on besides asthma. Your lungs sound clear and your tests are all normal. I would like you to keep your appointments with ENT and allergy before committing ourselves to further asthma treatment. documented in this encounter Progress Notes Obudlio Barrera MD - 03/25/2022 8:00 AM CDT Pulmonary Clinic Note Date of Service: 03/25/2022 Chief Complaint Patient presents with ??? Follow Up A/P: 42F being seen for f/u asthma. Currently, she is prescribed LAMA, ICS-LABA, prn albuterol, and LTRA.She continues to have persistent cough and COLE. Although she certainly has asthma, at this time I amhesitant to pin her worsening symptoms solely on that. Her lungs have always sounded clear and all tests have been negative. There is a chance that her cough is psychogenic, given negative evaluation and proper asthma treatment. We discussed further evaluation with allergy and ENT (who she already hasappts with) prior to committing her to injectable therapy for asthma. We can reevaluate after those appointments. We discussed the potential for speech therapy in the future for chronic cough. History: 42F seen for f/u asthma. Last seen 03/11/22. She is prescribed montelukast, tiotropium, budesonide-formoterol, prn albuterol/duonebs. COLE and cough have worsened the past 2 weeks. More chest tightness. Hears wheezing. Waking up at night w/ coughing ~2x/week. Nebulizer helps the most, using 3-4x/day. No definitive throat tightness. Has hoarseness, she attributes to coughing. Symptoms at times triggeredby odors, but seem more related to being outdoors. No sick contacts. Sees allergy 03/29 and ENT soon as well. Smoking:??never Hot tub exposure:??no? Recent travel:??no? Hx of incarceration:??no? Bird exposure:??no? Animal exposure:??bats and mice found in their home over the past year? Inhalation exposure:??dust and potential mold? 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 BP 122/83 (BP Location: Left arm, Patient Position: Sitting, Cuff Size: Adult Regular) Pulse 101 Ht 1.702 m (5' 7) Wt 98.2 kg (216 lb 8 oz) LMP 12/11/2021 (Exact Date) SpO2 98% BMI 33.91 kg/m?? Gen: well-appearing HEENT: Mallampati I Card: [...] GENITOURINARY SURGERY Tubal ligation and ablasion ??? COMMUNICATIONS ASSISTANT SURGERY not sure tubal ligation and ablasion [...] ??? Deep Vein Thrombosis (DVT) Father ??? Depression Sister ??? Anxiety Disorder Sister ??? Substance Abuse Sister ??? Asthma Sister ??? Cerebrovascular Disease Maternal Grandmother ??? Diabetes Paternal Grandfather ??? Depression Paternal Grandfather ??? Depression Daughter ??? Anxiety Disorder Daughter ??? Depression Daughter ??? Anxiety Disorder Daughter ??? Asthma Daughter ??? Anxiety Disorder Daughter ??? Asthma Son ??? Asthma Son Social History Socioeconomic History ??? Marital status: [...] Other Topics Concern ??? Parent/sibling w/ CABG, [place] or angioplasty before 65F 55M? No Social [...] with Friends and Family: Never ??? Attends Pentecostalism Services: Never ??? Active Member of Clubs [...] Barrera MD Pulmonary and Critical Care Medicine [facility] documented in this encounter Nursing Crista Reynolds - 03/25/2022 8:00 AM CDT Chief Complaint Patient presents with ??? Follow Up Vitals: 03/25/22 0803 BP: 122/83 BP Location: Left arm Patient Position: Sitting Cuff Size: Adult Regular Pulse: 101 SpO2: 98% Weight: 98.2 kg (216 lb 8 oz) Height: 1.702 m (5' 7) Body mass index is 33.91 kg/m??. CARLOS ALBERTO Cox documented in this encounter Plan of Treatment Upcoming Encounters Date Type Specialty Care Team Description 09/26/2022 Appointment Speech Therapy Obdulio Barrera MD 420 [facility] 276 [place], [place] [address] Anabel Chew, HOG GRADER [place] [id number] [facility] 396 [place], [place] [address] 09/27/2022 Therapy Visit Physical Therapy Luisana Watkins, PT [address] [place] [address] 09/29/2022 Virtual Visit Pain & Palliative Marilia Deluna, [facility] PhD [address] [place], [place] [address] 09/30/2022 Office Visit Family Practice Aydee Burton, TRANS ROUTER RADIATION ONCOLOGY NURSE [address] [place] [address] 654992 10/03/2022 Therapy Visit Physical Therapy Una Reardon, PT 2[address] [place] [phone] 10/10/2022 Hospital Encounter Surgery Lesly Celaya MD [address] [place], [place] [phone] 10/10/2022 Office Visit Surgery Lesly Celaya MD [address] [place], [place] [address] Ninoska Flowers, FLORES-C [address] [facility] 300 [place], [place] [address] 10/10/2022 Surgery Surgery Lesly Celaya, EXCISION, MASSES - MD back, abdomen, [address] right lower [facility] extremity [place], [place] [phone] 10/11/2022 Virtual Visit Pharm Clari Stoll, [facility] [address] 1836[address] 10/14/2022 Appointment Speech Therapy Anabel Chew, HOG GRADER [address] 855505 10/21/2022 Office Visit Pulmonology Obdulio Barrera MD 420 [facility] 276 [place], [place] [address] 10/25/2022 PRE VISIT ENT Charo Burton MD Previsit 9 [place], [place] [address] 10/25/2022 Office Visit Charo Carter MD [address] [place] [address] 420175 10/25/2022 Office Visit ENT Provider, Jeannette 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 Starting Sheet Tank Operator 10/28/2022 Appointment Speech Therapy Anabel Chew, HOG GRADER [address] 659245 11/17/2022 Appointment Speech Therapy Anabel Chew, HOG GRADER [address] 067395 12/23/2022 Office Visit Neurology Colby Yeung MD [address] [phone] Scheduled Procedures Name Priority Associated Diagnoses Date/Time EXCISION, MASS, TORSO Lipoma of skin and subcuta neous 10/10/2022 7:30 AM LANDSCAPE PAINTER tissue documented as of this encounter Visit Diagnoses Diagnosis Moderate persistent asthma without compl ication - Primary Unspecified asthma Lipoma of skin and subcutaneous tissue Lipoma of other skin and subcutaneous ti ssue documented in this encounter Additional Health Concerns Assessment Noted Time PHQ-9 Depression Total Score: 16 03/25/2022 7:29 AM CD T documented as of this encounter Care Teams Engraver Optical Frames Relationship Specialty Start Date End Date Aydee Burton, PCP - General Nurse Practitioner - 05/17/21 TRANS ROUTER RADIATION ONCOLOGY NURSE Family [address] [place] [address] [phone] Aydee Burton, Assigned PCP 04/28/21 TRANS ROUTER RADIATION ONCOLOGY NURSE [address] [place] [address] Louisa Hood, Assigned Neuroscience 07/11/21 TRANS ROUTER RADIATION ONCOLOGY NURSE Provider [address] [place] [address] [phone] Se Levy, Lead Phlebotomy Services Technician 08/05/21 05/12/22 Clari Francois Pharmacist Pharmacist 08/06/21 06/07/22 Jocelyn [facility] [address] [place], [place] [phone] [place], Assigned Sleep 08/01/21 Angel Turcios, Provider [address] [place] [address] Lesly Celaya MD Assigned Surgical 09/05/21 [address] [facility] Provider [place], [place] [address] Tawana Patel MA [facility] 09/30/21 Worker Ramses Mcpherson Assigned OBGYN 11/07/21 MD Onesimo Provider [address] [place], [place] [phone] Obdulio Barrera MD Critical Care 01/24/22 420 [facility] 276 [place], [place] [address] Obdulio Barrera, Assigned Pulmonology 02/06/22 MD Provider 420 [facility] 276 [place], [place] [address] Lesvia Stanley, GHADA Cardiac Rehabilitation 03/03/22 03/03/23 [facility] Therapist [address] [place] [address] Marilia Deluna, PhD Assigned Behavioral 02/20/22 [address] [facility] [place] [address] Niyah Decker, [facility] Pharmacist Pharmacist 03/07/22 420 [facility] 812 [place], [place] [address] Clari Poole, Pharmacist Pharmacist 03/07/22 06/15/22 [facility] [address] [facility] [address] [place] [phone] Lesvia Stanley, GHADA Cardiac Rehabilitation 03/17/22 03/17/23 [facility] Therapist [address] [place] [address] Mago Swift, [facility] Lead Phlebotomy Services Technician Varnishing Unit Operator - 08/05/21 Clinical documented as of this encounter
--- OUTSIDE RECORDS SUMMARY | 2022-09-21 04:06 | XMS_ITS | Encounter Summary ---
:1980 Author Organization [place] Address [address] [place] [address] Care Team Providers Name Role Phone Aydee Burton BATCH OPERATOR APRN Primary Care Provider [phone] Aydee Burton BATCH OPERATOR APRN Unavailable [phone] Louisa Hood BATCH OPERATOR APRN Unavailable [phone] Se Levy [facility] Unavailable Unavailable Clari Ruiz [facility] Unavailable [phone] Angel Hannah MD Unavailable Lesly Celaya MD Unavailable Tawana Patel MA Unavailable Unavailable Ramses Mcpherson MD Unavailable [phone] Obdulio Barrera MD Unavailable [phone] Obdulio Barrera MD Unavailable Lesvia Stnaley Unavailable Marilia Deluna PhD Unavailable Niyah Decker [facility] Unavailable Clari Poole [facility] Unavailable StarlaLesvia mas Esther Unavailable [facility] Unavailable Encounter Details Date Type Department Care Team Description 03/24/2022 [facility] Bailey MD 420 [facility] 276 [place] [address] Cardiac and Pulmonary 2, Rh Pulmonary Rehab Rehabilitation [place] [phone] [place] [address] [address] [place] [address] Social History Tobacco Use Types [...] How often do you attend pentecostal or religion services? 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 COVID-19 Exposure Response Date Recorded In the [...] for Moderate persistent cough asthma without complication fluticasone (FLONASE) [place] 2 sprays into 18.2 mL 0 03/0804/05/2022 50 MCG/ACT nasal both nostrils daily sprayIndications: SOB (shortness of breath) gabapentin (NEURONTIN) 4 times daily 0 12/14/2021 04/29/2022 400 MG capsule methocarbamol (ROBAXIN) Take 1-1.5 tablets 90 tablet [...] MD 420 [facility] 276 [place], [place] [address] Anabel Chew, PROGRAM MANAGER [place] 101126 [facility] 396 [place], [place] [address] 09/27/2022 Therapy Visit Physical Therapy Luisana Watkins, PT [address] [place] [address] 09/29/2022 Virtual Visit Pain & Palliative Marilia Deluna, [facility] PhD [address] [place], [place] [address] 09/30/2022 Office Visit Family Practice Aydee Burton, BATCH OPERATOR APRN [address] [place] [address] 10/03/2022 Therapy Visit Physical Therapy Una Reardon, PT 2[address] [place] [address] 10/10/2022 Hospital Encounter Surgery Lesly Celaya MD [address] [place], [place] [phone] 10/10/2022 Office Visit Surgery Lesly Celaya MD [address] [place] [address] Ninoska Flowers PA-C [address] [facility] 300 [place] [address] 10/10/2022 Surgery Surgery Lesly Celaya, EXCISION, MASSES - MD back, abdomen, [address] [place] [address] 10/11/2022 Virtual Visit Clari Su, [facility] 2450 [facility] [address] [place], [place] [address] 10/14/2022 Appointment Speech Therapy Anabel Chew, PROGRAM MANAGER [address] 325945 10/21/2022 Office Visit Pulmonology Obdulio Barrera MD [address] [address] 10/25/2022 PRE VISIT ENT Charo Burton MD Previsit 909 [place], [place] [address] 10/25/2022 Office Visit ENT Charo Burton MD [address] [place] [address] 10/25/2022 Office Visit ENT Provider, 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 Corncob Pipe Manufacturing Supervisor 10/28/2022 Appointment Speech Therapy Anabel Chew SLP [address] 262725 11/17/2022 Appointment Speech Therapy Anabel Chew SLP [address] 774005 12/23/2022 Office Visit Neurology Colby Yeung MD [address] [address]777 Scheduled Procedures Name Priority Associated Diagnoses Date/Time EXCISION, MASS, TORSO Lipoma of skin and subcuta neous 10/10/2022 7:30 AM LOCKSTITCH SHOULDER JOINER tissue documented as of this encounter Visit Diagnoses Not on filedocumented in this encounter Additional Health Concerns Assessment Noted Time PHQ-9 Depression Total Score: 16 03/19/2022 7:03 AM CD T documented as of this encounter Care Teams Mechanical Cad Designer Relationship Specialty Start Date End Date Aydee Burton, PCP - General Nurse Practitioner - 05/17/21 BATCH OPERATOR APRN Family [address] [place] [address] Aydee Burton, Assigned PCP 04/28/21 BATCH OPERATOR APRN [address] [place], [place] [phone] Louisa Hood, Assigned Neuroscience 07/11/21 BATCH OPERATOR APRN Provider 500 [place], [place] [address] Se Levy, Lead Gaming Commissioner 08/05/21 05/12/22 Clari Francois Pharmacist Pharmacist 08/06/21 06/07/22 Jocelyn, [facility] [address] [place], [place] [phone] [place], Tone Sleep 08/01/21 Angel Turcios Provider [address] [place], [place] [phone] Lesly Celaya MD Assigned Surgical 09/05/21 [address] Provider [place], [place] [phone] Tawana Patel MA [facility] 09/30/21 Worker Ramses Mcpherson Assigned OBGYN 11/07/21 MD Onesimo Provider [address] [place] [address] Obdulio Barrera MD Critical Care 01/24/[address] [place] [address] 276 [place] [address] Obdulio Barrera, Assigned Pulmonology 02/06/22 MD Provider [address] [place] [address] 276 [place] [address] Lesvia Stanley, GHADA Cardiac Rehabilitation 03/03/22 03/03/23 [facility] Therapist [address] [address]9985 Marilia Deluna, PhD Assigned Behavioral 02/20/22 [address] [facility] [place] [place] [address] Niyah Decker, [facility] Pharmacist Pharmacist 03/07/[address] [place] [address] 812 [place] [address] Clari Poole, Pharmacist Pharmacist 03/07/22 06/15/[address] [facility] [address] [facility] [place] [address] Lesvia Stanley, GHADA Cardiac Rehabilitation 03/17/22 03/17/23 [facility] Therapist [address] [address]445 Mago Swift, [facility] Lead Gaming Commissioner Sports Recruiter - 08/05/21 Clinical documented as of this encounter
--- OUTSIDE RECORDS SUMMARY | 2022-09-21 04:06 | XMS_ITS | Encounter Summary ---
:1980 Author Organization [place] Address [address] [place] [address] Care Team Providers Name Role Phone Aydee Burton TRACTOR MECHANIC APPRENTICE DRY HOUSE OPERATOR Primary Care Provider [phone] Aydee Burton TRACTOR MECHANIC APPRENTICE DRY HOUSE OPERATOR Unavailable [phone] Louisa Hood TRACTOR MECHANIC APPRENTICE DRY HOUSE OPERATOR Unavailable [phone] Se Levy [facility] Unavailable Unavailable Clari Ruiz [facility] Unavailable [phone] Angel Hannah MD Unavailable Lesly Celaay MD Unavailable Tawana Patel MA Unavailable Unavailable Ramses Mcpherson MD Unavailable [phone] Obdulio Barrera MD Unavailable Obdulio Barrera MD Unavailable [phone] Lesvia Stanley Unavailable Marilia Deluna PhD Unavailable Niyah Decker [facility] Unavailable Clari Poole [facility] Unavailable Lesvia Stanley EP Unavailable JamisonMago [facility] Unavailable Reason for Visit Rehab Therapy Cardiac Therapy (Routine: Next available opening) - Authorized Specialty Diagnoses / Procedures Referred By Contact Refer red To Contact CARDIAC REHAB Diagnoses Asthma SOB (shortness of breath) [address] [place] [address] Phone: Referral ID Status Reason Start Date Expiration Date Visits V isits Requested Authorized [id number] Authorized 11/13/2021 11/12/2022 365 365 Encounter Details Date Type Department Care Team Description 03/29/2022 Hospital Encounter [facility] Ezequiel Barrera MD 420 [facility] 276 [place] [address] Cardiac and Pulmonary 1, Rh Pulmonary Rehab Rehabilitation [address] [place] [address] Social History Tobacco Use Types [...] often do you attend oriental orthodox or buddhism services? 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 fluticasone (FLONASE) [place] 2 sprays into 18.2 mL 0 03/0804/05/2022 [...] Obdulio Barrera MD 420 [facility] 276 [place] [address] Anabel Chew, TAP OUT OPERATOR [place] [phone] [facility] 396 [place], [place] [address] 09/27/2022 Therapy Visit Physical Therapy Luisana Watkins, PT [address] [place] [address] 09/29/2022 Virtual Visit Pain & Palliative Marilia Deluna, Care PhD 10[address] [place] [address] 09/30/2022 Office Visit Family Practice Aydee Burton, TRACTOR MECHANIC APPRENTICE DRY HOUSE OPERATOR [address] [place], [place] [address] 10/03/2022 Therapy Visit Physical Therapy David-Una Tang, PT [address] [place] [phone] 10/10/2022 Hospital Encounter Surgery Lesly Celaya MD [address] [place], [place] [phone] 10/10/2022 Office Visit Surgery Lesly Celaya MD [address] [place] [address] Ninoska Flowers, FLORES-Ynes [address] [place] [address] 10/10/2022 Surgery Surgery Lelsy Celaya, EXCISION, MASSES - MD back, abdomen, [address] right [place] [address] 10/11/2022 Virtual Visit Clari Su, [facility] [address] [place] [phone] [place], [place] [address] 10/14/2022 Appointment Speech Therapy Anabel Chew, TAP OUT OPERATOR [facility] [place] 516 [facility] 396 [place], [place] [address] 10/21/2022 Office Visit Pulmonology Obdulio Barrera MD 420 [facility] 276 [place], [place] [address] 10/25/2022 PRE VISIT ENT Charo Burton MD Previsit 909 [place] [address] 10/25/2022 Office Visit ENT Charo Burton MD 909 [place], [place] [address] 10/25/2022 Office Visit ENT Provider, Jeannette 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 Online Merchandising Coordinator 10/28/2022 Appointment Speech Therapy Anabel Chew, TAP OUT OPERATOR [address] [address] 11/17/2022 Appointment Speech Therapy Anabel Chew, TAP OUT OPERATOR [address] [address] 12/23/2022 Office Visit Neurology Colby Yeung MD [address] [place] [place] [address] Scheduled Procedures Name Priority Associated Diagnoses Date/Time EXCISION, MASS, TORSO Lipoma of skin and subcuta neous 10/10/2022 7:30 AM CHIEF TECHNOLOGIST tissue documented as of this encounter Visit Diagnoses Not on filedocumented in this encounter Additional Health Concerns Assessment Noted Time PHQ-9 Depression Total Score: 16 03/25/2022 7:29 AM CD T documented as of this encounter Care Teams Dry Cans Back Tender Relationship Specialty Start Date End Date Aydee Burton, PCP - General Nurse Practitioner - 05/17/21 TRACTOR MECHANIC APPRENTICE DRY HOUSE OPERATOR Family [address] [place] [address] 863192 Aydee Burton, Assigned PCP 04/28/21 TRACTOR MECHANIC APPRENTICE DRY HOUSE OPERATOR [address] [place] [address] [phone] Louisa Hood, Assigned Neuroscience 07/11/21 TRACTOR MECHANIC APPRENTICE DRY HOUSE OPERATOR Provider [address] [place] [address] [phone] Se Levy, Lead Returning Officer 08/05/21 05/12/22 Clari Francois Pharmacist Pharmacist 08/06/21 06/07/22 JORDAN Banks [address] [place] [address] [place], Assigned Sleep 08/01/21 Angel Turcios, Provider [address] [place] [address] Lesly Celaya MD Assigned Surgical 09/05/21 [address] [facility] [place] [address] [facility] 09/30/21 Worker Ramses Mcpherson Assigned OBGYN 11/07/21 MD Onesimo Provider [address] [place] [address] Obdulio Barrera MD Critical Care 01/24/[address] [place] [address] Obdulio Barrera, Assigned Pulmonology 02/06/22 MD Provider [address] [place] [address] Lesvia Stanley, GHADA Cardiac Rehabilitation 03/03/22 03/03/23 [facility] Therapist [address] [place] [address] Marilia Deluna, PhD Assigned Behavioral 02/20/22 [address] [facility] [place] [address] Niyah Decker, [facility] Pharmacist Pharmacist 03/07/22 420 [facility] 812 [place] [address] Clari Poole, Pharmacist Pharmacist 03/07/22 06/15/22 [facility] 17[address] [facility] [place] [phone] Lesvia Stanley EP Cardiac Rehabilitation 03/17/22 03/17/23 [facility] Therapist [address] [address] Mago Swift, INSTRUCTIONAL SUPPORT ASSISTANT Lead Returning Officer Jd Edwards Consultant - 08/05/21 Clinical documented as of this encounter
--- OUTSIDE RECORDS SUMMARY | 2022-09-21 04:06 | XMS_ITS | Encounter Summary ---
:1980 Author Organization [facility] Address [address] [place] [address] Care Team Providers Name Role Phone Aydee Burton MUSIC PROFESSOR V BELT BUILDER Primary Care Provider [phone] Aydee Burton MUSIC PROFESSOR V BELT BUILDER Unavailable [phone] Louisa Hood MUSIC PROFESSOR V BELT BUILDER Unavailable [phone] Se Levy [facility] Unavailable Unavailable Clari Ruiz [facility] Unavailable [phone] Angel Hannah MD Unavailable Lesly Celaya MD Unavailable Tawana Patel MA Unavailable Unavailable Ramses Mcpherson MD Unavailable [phone] Obdulio Barrera MD Unavailable [phone] Obdulio Barrera MD Unavailable [phone] Lesvia Stanley Unavailable Marilia Deluna PhD Unavailable Niyah Decker [facility] Unavailable Clari Poole [facility] Unavailable Lesvia Stanley EP Unavailable Mago Swift [facility] Unavailable Reason for Referral Consultation (Routine: Next available opening) - Referral NOT Required Specialty Diagnoses / Procedures Referred By Contact Refer red To Contact Allergy Diagnoses Chronic cough Bronchospasm Chest tightness Aydee Burton, [facility] MUSIC PROFESSOR V BELT BUILDER of [address] [place] [address] [address] [address]23817 Phone: Referral ID Status Reason Start Date Expiration Date Visits V isits Requested Authorized [id number] Referral NOT 03/18/2022 03/18/2023 1 1 Required Consultation (Priority: 1-2 Weeks) - Referral NOT Required Specialty Diagnoses / Procedures Referred By Contact Refer red To Contact Otolaryngology Diagnoses Chronic cough Aydee Burton, [facility] ELADIO V BELT BUILDER [facility] [address] [place] [address] [address] [address] Phone: Referral ID Status Reason Start Date Expiration Date Visits V isits Requested Authorized [id number] Referral NOT 03/18/2022 03/18/2023 1 1 Required Reason for Visit Reason Comments needs letter to return to work Encounter Details Date Type Department Care Team Description 03/18[facility]2022 [facility] (Primary Dx); [facility] [place] ELADIO Mendez CNP Chronic cough; [address] [place] [address] ospasm; [address] Chest pain, unspecified type; [place], [place] [address] Chest tightness [id number] [phone] Social History Tobacco Use Types Packs/Day Years [...] How often do you attend congregation or baptism services? Never 08/05/2021 Do you [...] at Date Recorded Female 11/09/2021 7:53 PM HYDRAULIC BULL RIVETER OPERATOR COVID-19 Exposure Response Date Recorded In the last 10 days, have you been in contact with No / Unsu re 04/07/2022 12:43 PM CDT someone who was confirmed or suspected to have Coronavirus/COVID-19? documented as of this encounter Patient Instructions Patient InstructionsAydee Burton APRN V BELT BUILDER - 03/18/2022 4:57 PM CDT Laryngopharyngeal reflux (LPR) refers to the backflow of gastric contents into the pharynx via the esophagus. Although the concept of LPR was first introduced in the late 1960s and early 1970s through a series of clinical papers and experiments that described a variety of head and neck manifestations of gastroesophageal reflux disease (GERD), the term ???laryngopharyngeal reflux?? was not coined until the . LPR is also felt to play a role in some lower airway disorders such as asthma, pneumonia, and bronchiectasis. Chronic cough - Chronic cough can be triggered by direct effects of the refluxate in the laryngopharynx, though microaspiration into the lungs, or through vagal reflexes, causing airway hyperresponsiveness. Call for appointments with ENT an Allergy. Comment: Your provider has referred you to: [facility]: [facility] [email or web address]/ [facility] 350 [facility] 200 [facility] [address] AttachmentsThe following attachments cannot be sent through Care Everywhere. Cough, Chronic, Uncertain Cause (Adult) (East Timorese)documented in this encounter Progress Notes Aydee Burton APRN CNP - 03/18/2022 4:30 PM CDT Images from the original note were not included. Marta is a 42 year old who is being evaluated via a billable video visit. How would you like to obtain your AVS? MyChart If the video visit is dropped, the invitation should be resent by: Send to e- mail at: Dulce Will anyone else be joining your video visit? No Video Start Time: 4:39 PM Assessment & Plan SOB (shortness of breath) Chronic cough Bronchospasm Chest pain, unspecified type Chest tightness Continue to work with pulmonology and pulm rehab. Her lung concerns are not my area of expertise. Letter to be out of work at this time; likely needs to be management by specialist knowing what is going on with her and timeline to recovery. Restart omeprazole. ENT to rule out laryngeal issue. Food Safety Auditor for consult on allergies contributing; recommend getting rid of hamsters. Red flag symptoms discussed and if these occur present to the emergency room or call 911. Marta verbalizes understanding of plan of care and is in agreement. - Otolaryngology Referral - omeprazole (PRILOSEC) [address] capsule Dispense: 60 capsule; Refill: 1 - Adult Allergy/Asthma Referral BMI: Estimated body mass index is 33.64 kg/m?? as calculated from the following: Height as of 03/11/22: 1.702 m (5' 7). Weight as of 03/11/22: 97.4 kg (214 lb 12.8 oz). Return in about 2 weeks (around 04/01/2022) for Recheck. Aydee Burton MUSIC PROFESSOR [facility] Marta is a 42 year old who presents for the following health issues History of Present Illness Asthma: She presents [...] per week. She is taking medications regularly. Talked to community service manager Monday Needs updated letter for work to return with restrictions. Messaged pulmonary not able to get note there. Does not possible cause ?did get Hamster in September another one 6 weeks after her 12/28/21 surgery. She does all care cleans out cage. Review of Systems Constitutional, HEENT, cardiovascular, pulmonary, GI, , musculoskeletal, neuro, skin, endocrine and psych systems are negative, except as otherwise noted in the HPI. Objective Vitals: No vitals were obtained today due to virtual visit. Physical Exam GENERAL: Healthy, alert and no distress EYES: Eyes grossly normal to inspection. No discharge or erythema, or obvious scleral/conjunctival abnormalities. RESP: No audible wheeze,frequent cough hoarse voice, or visible cyanosis. No visible retractions or increased work of breathing. SKIN: Visible skin clear. No significant rash, abnormal pigmentation or lesions. NEURO: Cranial nerves grossly intact. Mentation and speech appropriate for age. PSYCH: Mentation appears normal, affect normal/bright, judgement and insight intact, normal speech and appearance well-groomed. Video-Visit Details Type of service: Video Visit Video End Time:5:12 PM Originating Location (pt. Location): Home Distant Location (provider location): [facility] Platform used for Video Visit: AmWell documented in this encounter Plan of Treatment Upcoming Encounters Date Type Specialty Care Team Description 09/26/2022 Appointment Speech Therapy Obdulio Barrera MD [address] [facility] [address] [place], [place] [address] Anabel Chew, CONTRACTING OFFICER [facility] [address] [place] [address] 09/27/2022 Therapy Visit Physical Therapy Luisana Watkins, PT 7547 [place] [address] 09/29/2022 Virtual Visit Pain & Palliative Marilia Deluna, [facility] PhD [address] [place] [address] 09/30/2022 Office Visit Family Practice Aydee Burton APRN V BELT BUILDER [address] [place], [place] [address] 10/03/2022 Therapy Visit Physical Therapy Una Reardon, PT [address] [place] [phone] 10/10/2022 Hospital Encounter Surgery Lesly Celaya MD [address] [place], [place] [address] 10/10/2022 Office Visit Surgery Lesly Celaya MD [address] [place], [place] [phone] Ninoska Flowers, FLORES-C [address] [place] [address] 10/10/2022 Surgery Surgery Lesly Celaya, EXCISION, MASSES - MD back, abdomen, [address] right [place] [address] 10/11/2022 Virtual Visit Pharm Clari Stoll, [facility] [address] [address] 10/14/2022 Appointment Speech Therapy Anabel Chew, CONTRACTING OFFICER [facility] [address] [facility] [address] [place], [place] [address] 10/21/2022 Office Visit Pulmonology Obdulio Barrera MD [address] [facility] [address] [place], [place] [address] 10/25/2022 PRE VISIT Charo Carter MD Previsit [address] [place] [id number] 10/25/2022 Office Visit Charo Carter MD [address] [place] [address] [id number] 10/25/2022 Office Visit ENT Provider, Jeannette 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 Detective Private Eye 10/28/2022 Appointment Speech Therapy Anabel Chew, CONTRACTING OFFICER [address] [address] 11/17/2022 Appointment Speech Therapy Anabel Chew, CONTRACTING OFFICER [address] [address] 12/23/2022 Office Visit Neurology Colby Yeung MD [address] [address] Scheduled Procedures Name Priority Associated Diagnoses Date/Time EXCISION, MASS, TORSO Lipoma of skin and subcuta neous 10/10/2022 7:30 AM HYDRAULIC BULL RIVETER OPERATOR tissue Scheduled Referrals Name Type Priority Associated Order Schedule Diagnoses Otolaryngology Referral Referral Priority: 1-2 Chronic cough Or dered: Weeks 03/18/2022 Adult Allergy/Asthma Referral Routine: Next Chronic cou gh Expected: Referral available opening Bronchospasm 03/18/2022 Chest tightness (Approximate ), Expires: 03/18/2023 documented as of this encounter Visit Diagnoses Diagnosis SOB (shortness of breath) - Primary Shortness of breath Chronic cough Cough Bronchospasm Acute bronchospasm Chest pain, unspecified type Chest tightness Other chest pain Lipoma of skin and subcutaneous tissue Lipoma of other skin and subcutaneous ti ssue documented in this encounter Additional Health Concerns Assessment Noted Time PHQ-9 Depression Total Score: 16 03/19/2022 7:03 AM CD T documented as of this encounter Care Teams Chemical Inspector Relationship Specialty Start Date End Date Aydee Burton, PCP - General Nurse Practitioner - 05/17/21 MUSIC PROFESSOR V BELT BUILDER [address] [address] Aydee Burton, Assigned PCP 04/28/21 MUSIC PROFESSOR [address] [place] [address] Louisa Hood, Assigned Neuroscience 07/11/21 MUSIC PROFESSOR V BELT BUILDER Provider [address] [place], [place] [address] Se Levy, Lead Thermoplastic Technician 08/05/21 05/12/22 LPN PRIVATE DUTYClari Ordonez Pharmacist Pharmacist 08/06/21 06/07/22 [facility] [address] [place], [place] [address] [place], Assigned Sleep 08/01/21 Angel Turcios, Provider [address] [place] [address] Lesly Celaya MD Assigned Surgical 09/05/21 [address] [facility] [place] [place] [address] [facility] 09/30/21 Worker Ramses Mcpherson Assigned OBGYN 11/07/21 MD Onesimo Provider [address] [place], [place] [address] Obdulio Barrera MD Critical Care 01/24/[address] [place] [address] Obdulio Barrera, Assigned Pulmonology 02/06/[address] [place] [address] Lesvia Stanley EP Cardiac Rehabilitation 03/03/22 03/03/23 [facility] Therapist [address] [place] [id number] Marilia Deluna, PhD Assigned Behavioral 02/20/22 [address] [facility] Health Provider [place], [place] [address] Niyah Decker, [facility] Pharmacist Pharmacist 03/07/22 420 [facility] 812 [place] [address] Clari Poole, Pharmacist Pharmacist 03/07/22 06/15/22 [facility] [address] [facility] [place] [address] Lesvia Stanley EP Cardiac Rehabilitation 03/17/22 03/17/23 [facility] Therapist [address] [address] Mago Swift OCCUPATIONAL HEALTH AND SAFETY ADVISER Lead Thermoplastic Technician Graphics Editor - 08/05/21 Clinical documented as of this encounter
--- OUTSIDE RECORDS SUMMARY | 2022-09-21 04:07 | XMS_ITS | Encounter Summary ---
:1980 Author Organization [facility] Address [address] [place] [address] Care Team Providers Name Role Phone Aydee Burton FEATHER EDGER PARISH NURSE Primary Care Provider [phone] Aydee Burton FEATHER EDGER PARISH NURSE Unavailable [phone] Louisa Hood FEATHER EDGER PARISH NURSE Unavailable [phone] Se Levy [facility] Unavailable Unavailable Clari Ruiz [facility] Unavailable Angel Hannah MD Unavailable Lesly Celaya MD Unavailable Tawana Patel MA Unavailable Unavailable Ramses Mcpherson MD Unavailable [phone] Obdulio Barrera MD Unavailable [phone] Obdulio Barrera MD Unavailable [phone] Lesvia Stanley Unavailable Marilia Deluna PhD Unavailable Niyah Decker [facility] Unavailable Clari Poole [facility] Unavailable Mago Swift [facility] Unavailable Encounter Details Date Type Department Care Team Description 03/15/2022 Travel Social History Tobacco Use Types Packs/Day [...] How often do you attend anabaptist or restorationism services? Never 08/05/2021 Do you [...] at Date Recorded Female 11/09/2021 7:53 PM CHANCELLOR COVID-19 Exposure Response Date Recorded In the last 10 days, have you been in contact with No / Unsu re 03/15/2022 8:01 AM CDT someone who was confirmed or suspected to have Coronavirus/COVID-19? documented as of this encounter Plan of Treatment Upcoming Encounters Date Type Specialty Care Team Description 09/26/2022 Appointment Speech Therapy Obdulio Barrera MD [address] [place] [address] Anabel Chew, HANDLE FINISHER [facility] 516 [facility] 396 [place], [place] [address] 09/27/2022 Therapy Visit Physical Therapy Luisana Watkins, PT [address] [place] [address] 09/29/2022 Virtual Visit Pain & Palliative Marilia Deluna, [facility] PhD [address] [place] [address] 09/30/2022 Office Visit Family Practice Aydee Burton, FEATHER EDGER PARISH NURSE [address] [place] [address] 10/03/2022 Therapy Visit Physical Therapy Una Reardon, PT [address] [place] [address] 10/10/2022 Hospital Encounter Surgery Lesly Celaya MD [address] [place] [address] 10/10/2022 Office Visit Surgery Lesly Celaya MD [address] [place] [address] Ninoska Flowers PA-C [address] [place] [address] 10/10/2022 Surgery Surgery Lsely Celaya, EXCISION, MASSES - MD back, abdomen, [address] right lower [facility] [place] [address] 10/11/2022 Virtual Visit Clari Su, [place] [address] [address] [address] 10/14/2022 Appointment Speech Therapy Anabel Chew, HANDLE FINISHER [address] [address] 10/21/2022 Office Visit Pulmonology Obdulio Barrera MD [address] [address] 10/25/2022 PRE VISIT ENT Charo Burton MD Previsit [address] [place] [address] 10/25/2022 Office Visit ENT Charo Burtno MD 909 [place], [place] [address] 10/25/2022 Office Visit ENT Provider, 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 Pump Attendant 10/28/2022 Appointment Speech Therapy Anabel Chew, HANDLE FINISHER [address] [address] 11/17/2022 Appointment Speech Therapy Anabel Chew, HANDLE FINISHER [address] 811[address] 12/23/2022 Office Visit Neurology Colby Yeung MD [address] [place] [address] Scheduled Procedures Name Priority Associated Diagnoses Date/Time EXCISION, MASS, TORSO Lipoma of skin and subcuta neous 10/10/2022 7:30 AM CHANCELLOR tissue documented as of this encounter Visit Diagnoses Not on filedocumented in this encounter Additional Health Concerns Assessment Noted Time PHQ-9 Depression Total Score: 20 03/02/2022 7:02 AM CD T documented as of this encounter Care Teams Conditioning Room Worker Relationship Specialty Start Date End Date Aydee Burton, PCP - General Nurse Practitioner - 05/17/21 FEATHER EDGER PARISH NURSE Family [address] [place], [place] [phone] Aydee Burton, Assigned PCP 04/28/21 FEATHER EDGER PARISH NURSE [address] [place], [place] [phone] Louisa Hood, Assigned Neuroscience 07/11/21 FEATHER EDGER PARISH NURSE Provider 500 [place] [address] Se Levy, Lead Motor Vehicle Examiner 08/05/21 05/12/22 Clari Francois Pharmacist Pharmacist 08/06/21 06/07/22 [facility] [address] [place], [place] [phone] [place], Assigned Sleep 08/01/21 Angel Turcios, Provider [address] [place], [place] [address] Lesly Celaya MD Assigned Surgical 09/05/21 [address] Provider [place], [place] [phone] Tawana Patel MA [facility] 09/30/21 Worker Ramses Mcpherson Assigned OBGYN 11/07/21 MD Onesimo Provider [address] [place] [address] Obdulio Barrera MD Critical Care 01/24/[address] [place] [address] Obdulio Barrera, Assigned Pulmonology 02/06/[address] [address] Lesvia Stanley EP Cardiac Rehabilitation 03/03/22 03/03/23 [facility] Therapist [address] [place] [address] Marilia Deluna, PhD Assigned Behavioral 02/20/22 [address] [facility] Health Provider [place], [place] [address] Niyah Decker, [facility] Pharmacist Pharmacist 03/07/22 420 [facility] 812 [place], [place] [address] Clari Poole, Pharmacist Pharmacist 03/07/22 06/15/22 [facility] [address] [facility] [address] [place] [id number] Mago Swift, [facility] Lead Motor Vehicle Examiner Letter Sorting Machine Operator - 08/05/21 Clinical documented as of this encounter
--- OUTSIDE RECORDS SUMMARY | 2022-09-21 04:07 | XMS_ITS | Encounter Summary ---
:1980 Author Organization [facility] Address [address] [place] [address] Care Team Providers Name Role Phone Aydee Burton PUTTY MAKER HOT TAR ROOFER HELPER Primary Care Provider [phone] Aydee Burton PUTTY MAKER HOT TAR ROOFER HELPER Unavailable [phone] Louisa Hood PUTTY MAKER HOT TAR ROOFER HELPER Unavailable [phone] Se Levy [facility] Unavailable Unavailable Clari Ruiz [facility] Unavailable [phone] Angel Hannah MD Unavailable Lesly Celaya MD Unavailable Tawana Patel MA Unavailable Unavailable Ramses Mcpherson MD Unavailable [phone] Obdulio Barrera MD Unavailable [phone] Obdulio Barrera MD Unavailable [phone] Lesvia Stanley Unavailable Marilia Deluna PhD Unavailable Niyah Decker [facility] Unavailable Clari Poole [facility] Unavailable Mago Swift [facility] Unavailable Encounter Details Date Type Department Care Team Description 03/10/2022 Travel Social History Tobacco Use Types Packs/Day [...] How often do you attend mormon or confucianism services? Never 08/05/2021 Do you [...] at Date Recorded Female 11/09/2021 7:53 PM ANGIOGRAPHY NURSE COVID-19 Exposure Response Date Recorded In the last 10 days, have you been in contact with No / Unsu re 03/10/2022 2:45 PM CDT someone who was confirmed or suspected to have Coronavirus/COVID-19? documented as of this encounter Plan of Treatment Upcoming Encounters Date Type Specialty Care Team Description 09/26/2022 Appointment Speech Therapy Obdulio Barrera MD [address] [place] [address] Anabel Chew, CLINICAL RESEARCH TECHNICIAN [facility] 516 [facility] 396 [place], [place] [address] 09/27/2022 Therapy Visit Physical Therapy Luisana Watkins, PT 2[address] [place] [address] 09/29/2022 Virtual Visit Pain & Palliative Marilia Deluna, [facility] PhD [address] [place] [address] 09/30/2022 Office Visit Family Practice Aydee Burton, PUTTY MAKER HOT TAR ROOFER HELPER 4[address] [place] [address] 10/03/2022 Therapy Visit Physical Therapy Una Reardon, PT [address] [place] [address] 10/10/2022 Hospital Encounter Surgery Lesly Celaya MD [address] [place] [address] 10/10/2022 Office Visit Surgery Lesly Celaya MD [address] [place] [address] Ninoska Flowers PA-C [address] [place] [address] 10/10/2022 Surgery Surgery Lesly Celaya, EXCISION, MASSES - MD back, abdomen, [address] right lower [facility] [place] [address] 10/11/2022 Virtual Visit Clari Su, [place] [phone] [address] [address] 10/14/2022 Appointment Speech Therapy Anabel Chew, CLINICAL RESEARCH TECHNICIAN [address] 9807[address] 10/21/2022 Office Visit Pulmonology Obdulio Barrera MD [address] [address] 10/25/2022 PRE VISIT ENT Charo Burton MD Previsit [address] [place] [address] 10/25/2022 Office Visit ENT Charo Burton MD 909 [place], [place] [address] 10/25/2022 Office Visit ENT Provider, 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 Partner Manager 10/28/2022 Appointment Speech Therapy Anabel Chew, CLINICAL RESEARCH TECHNICIAN [address] [address]64[address] 11/17/2022 Appointment Speech Therapy Anabel Chew, CLINICAL RESEARCH TECHNICIAN [address] [address] 12/23/2022 Office Visit Neurology Colby Yeung MD [address] [place] [address] Scheduled Procedures Name Priority Associated Diagnoses Date/Time EXCISION, MASS, TORSO Lipoma of skin and subcuta neous 10/10/2022 7:30 AM ANGIOGRAPHY NURSE tissue documented as of this encounter Visit Diagnoses Not on filedocumented in this encounter Additional Health Concerns Assessment Noted Time PHQ-9 Depression Total Score: 20 03/02/2022 7:02 AM CD T documented as of this encounter Care Teams Greenhouse Worker Relationship Specialty Start Date End Date Aydee Burton, PCP - General Nurse Practitioner - 05/17/21 PUTTY MAKER HOT TAR ROOFER HELPER Family [address] [place], [place] [phone] Aydee Burton, Assigned PCP 04/28/21 PUTTY MAKER HOT TAR ROOFER HELPER [address] [place], [place] [phone] Louisa Hood, Assigned Neuroscience 07/11/21 PUTTY MAKER HOT TAR ROOFER HELPER Provider 500 [place] [address] Se Levy, Lead Respiratory Therapy Assistant 08/05/21 05/12/22 Clari Francois Pharmacist Pharmacist 08/06/21 06/07/22 [facility] [address] [place], [place] [phone] [place], Assigned Sleep 08/01/21 Angel Turcios, Provider [address] [place], [place] [address] Lesly Celaya MD Assigned Surgical 09/05/21 [address] Provider [place], [place] [phone] Tawana Patel MA [facility] 09/30/21 Worker Ramses Mcpherson Assigned OBGYN 11/07/21 MD Onesimo Provider [address] [place] [address] Obdulio Barrera MD Critical Care 01/24/[address] [place] [address] Obdulio Barrera, Assigned Pulmonology 02/06/[address] [address] Lesvia Stanley EP Cardiac Rehabilitation 03/03/22 03/03/23 [facility] Therapist [address] [place] [address] Marilia Deluna, PhD Assigned Behavioral 02/20/22 [address] [facility] Health Provider [place], [place] [address] Niyah Decker, [facility] Pharmacist Pharmacist 03/07/22 420 [facility] 812 [place], [place] [address] Clari Poole, Pharmacist Pharmacist 03/07/22 06/15/22 [facility] [address] [facility] [address] [place] [phone] Mago Swift, [facility] Lead Respiratory Therapy Assistant Tow Driver - 08/05/21 Clinical documented as of this encounter
--- OUTSIDE RECORDS SUMMARY | 2022-09-21 04:07 | XMS_ITS | Encounter Summary ---
:1980 Author Organization [place] Address [address] [place] [address] Care Team Providers Name Role Phone Aydee Burton DOUGH BRAKE MACHINE OPERATOR PROJECT BUYER Primary Care Provider [phone] Aydee Burton DOUGH BRAKE MACHINE OPERATOR PROJECT BUYER Unavailable [phone] Louisa Hood DOUGH BRAKE MACHINE OPERATOR PROJECT BUYER Unavailable [phone] Se Levy [facility] Unavailable Unavailable Clari Ruiz [facility] Unavailable Angel Hannah MD Unavailable Lesly Celaya MD Unavailable Tawana Patel MA Unavailable Unavailable Ramses Mcpherson MD Unavailable [phone] Obdulio Barrera MD Unavailable [phone] Obdulio Barrera MD Unavailable [phone] Lesvia Stanley Unavailable Marilia Deluna PhD Unavailable Niyah Decker [facility] Unavailable Clari Poole [facility] Unavailable Mago Swift [facility] Unavailable Reason for Visit Reason Comments Follow Up Encounter Details Date Type Department Care Team Description 03/11/2022 Office Visit Terri [facility] Obdulio Jason Moderate persistent Specialty Clinic MD Leo asthma without [place] [address] SE complication (Primary [address] [facility] [address]) [address] [place], [place] [phone] [phone] Social History Tobacco Use Types Packs/Day Years [...] How often do you attend jain or rastafarian services? Never 08/05/2021 Do you belong to [...] at Date Recorded Female 11/09/2021 7:53 PM [employer] COVID-19 Exposure Response Date Recorded In the last 10 days, have you been in contact with No / Unsu re 03/11/2022 10:12 AM CDT someone who was confirmed or suspected to have Coronavirus/COVID-19? documented as of this encounter Last Filed Vital Signs Vital Sign Reading Time Taken Comments Blood Pressure 127/75 03/11/2022 10:14 AM CDT Pulse 106 03/11/2022 10:14 AM CDT Temperature - - Respiratory Rate - - Oxygen Saturation 99% 03/11/2022 10:14 AM CDT Inhaled Oxygen Concentration - - Weight 98 kg (216 lb) 03/11/2022 10:14 AM CDT Height 170.2 cm (5' 7) 03/11/2022 10:14 AM CDT Body Mass Index 33.83 03/11/2022 10:14 AM CDT documented in this encounter Patient Instructions Patient InstructionsObdulio Barrera MD - 03/11/2022 10:28 AM CDT I would like you to continue your inhaler regimen with Symbicort, Spiriva, and as needed albuterol. I am adding Singulair to your asthma regimen. If this is not helpful, when I see you back in 2 monthswe will consider injectable biologic therapy. documented in this encounter Progress Notes Obdulio Barrera MD - 03/11/2022 10:00 AM CDT Pulmonary Clinic Note Date of Service: 03/11/2022 Chief Complaint Patient presents with ??? Follow Up A/P: 42F being seen for moderate persistent asthma. Continues to have cough and COLE. On ICS-LABA, LAMA, and prn albuterol. Will continue inhaler therapy. Add montelukast. If she continues to have symptoms, will add biologic therapy w/ dupilumab (anti-IL4R). History: 42F being seen for f/u cough and wheeze. Last seen 01/31/2022. That visit, felt to be in part relatedto asthma. Continued on ICS-LABA that was prescribed by PCP. There was also concern for atypical infection and given empiric levofloxacin x 10d. Tiotropium added after clinic appointment for continued s ymptoms. Continues to have cough. SOB was improving, now worsening again. COLE, no SOB at rest. Not hearing wheezing anymore. No nocturnal symptoms. Using Symbicort and Spiriva. Using albuterol multipletimes per day, which helps some. Denies allergies. Is currently on azithromycin, but not noticing improvement. No post-nasal gtt or GERD. No personal hx of lung disease. Father w/ COPD, but he smokes. ?? Smoking: never Hot tub exposure:??no? Recent travel:??no? Hx of incarceration: no ? Bird exposure: no? Animal exposure: bats and mice found in their home over the past year? Inhalation exposure: dust and potential mold? 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 BP 127/75 (BP Location: Left arm, Patient Position: Sitting, Cuff Size: Adult Regular) Pulse 106 Ht 1.702 m (5' 7) Wt 98 kg (216 lb) LMP 12/11/2021 (Exact Date) SpO2 99% BMI 33.83 kg/m?? Gen: well-appearing HEENT: Mallampati I Card: RRR Pulm: clear biilaterally Abd: soft MSK: no edema Skin: no obvious rash Psych: normal affect Neuro: alert and oriented Labs: Personally reviewed Abs eos (01/2022) - 300 Imaging/Studies: Personally reviewed CXR (01/2022) - clear CTPE (01/2022) - [...] GENITOURINARY SURGERY Tubal ligation and ablasion ??? MANAGER PATHOLOGY SURGERY not sure tubal ligation and ablasion [...] Other Topics Concern ??? Parent/sibling w/ CABG, [place] or angioplasty before 65F 55M? No Social [...] with Friends and Family: Never ??? Attends Rastafari Services: Never ??? Active Member of Clubs [...] Barrera MD Pulmonary and Critical Care Medicine [facility] documented in this encounter Nursing Notes Crista Holden - 03/11/2022 10:00 AM CDT Chief Complaint Patient presents with ??? Follow Up Vitals: 03/11/22 1014 BP: 127/75 BP Location: Left arm Patient Position: Sitting Cuff Size: Adult Regular Pulse: 106 SpO2: 99% Weight: 98 kg (216 lb) Height: 1.702 m (5' 7) Body mass index is 33.83 kg/m??. Crista Holden MA documented in this encounter Plan of Treatment Upcoming Encounters Date Type Specialty Care Team Description 09/26/2022 Appointment Speech Therapy Obdulio Barrera MD [address] [facility] [address] [place], [place] [phone] Anabel Chew, CUPROUS CHLORIDE OPERATOR [facility] [address] [facility] [address] [place], [place] [address] 09/27/2022 Therapy Visit Physical Therapy Luisana Watkins, PT [address] [place] [address] 09/29/2022 Virtual Visit Pain & Palliative Marilia Deluna, [facility] PhD [address] [place], [place] [phone] 09/30/2022 Office Visit Family Practice Aydee Burton, DOUGH BRAKE MACHINE OPERATOR PROJECT BUYER [address] [place] [phone] 10/03/2022 Therapy Visit Physical Therapy Una Reardon, PT [address] [place] [address] 10/10/2022 Hospital Encounter Surgery Lesly Celaya MD [address] [place] [address] 10/10/2022 Office Visit Surgery Lesly Celaya MD [address] [place] [address] Ninoska Flowers PA-C [address] [facility] [address] [place] [address] 10/10/2022 Surgery Surgery Lesly Celaya, EXCISION, MASSES - MD back, abdomen, [address] right lower [facility] [place] [address] 10/11/2022 Virtual Visit Clari Su, [facility] [address] [place] [address] 10/14/2022 Appointment Speech Therapy Anabel Chew, CUPROUS CHLORIDE OPERATOR [address] [address] 10/21/2022 Office Visit Pulmonology Obdulio Barrera MD [address] [facility] [address] [place], [place] [address] 10/25/2022 PRE VISIT ENT Charo Burton MD Previsit [address] [place], [place] [address] 10/25/2022 Office Visit ENT Charo Burton MD [address] [place], [place] [address] 10/25/2022 Office Visit ENT Provider, 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 Rehabilitation Clerk 10/28/2022 Appointment Speech Therapy Anabel Chew, CUPROUS CHLORIDE OPERATOR [address] [address]555 11/17/2022 Appointment Speech Therapy Anabel Chew, CUPROUS CHLORIDE OPERATOR [address] [address] 12/23/2022 Office Visit Neurology Colby Yeung MD [address] [place] [address] Scheduled Procedures Name Priority Associated Diagnoses Date/Time EXCISION, MASS, TORSO Lipoma of skin and subcuta neous 10/10/2022 7:30 AM CORRECTIONAL CORPORAL tissue documented as of this encounter Visit Diagnoses Diagnosis Moderate persistent asthma without compl ication - Primary Unspecified asthma Lipoma of skin and subcutaneous tissue Lipoma of other skin and subcutaneous ti ssue documented in this encounter Additional Health Concerns Assessment Noted Time PHQ-9 Depression Total Score: 20 03/02/2022 7:02 AM CD T documented as of this encounter Care Teams Bank Examiner Relationship Specialty Start Date End Date Aydee Burton, PCP - General Nurse Practitioner - 05/17/21 DOUGH BRAKE MACHINE OPERATOR PROJECT BUYER Family [address] [place] [address] [phone] Aydee Burton, Assigned PCP 04/28/21 DOUGH BRAKE MACHINE OPERATOR PROJECT BUYER [address] [place] [address] [phone] Louisa Hood, Assigned Neuroscience 07/11/21 DOUGH BRAKE MACHINE OPERATOR PROJECT BUYER Provider [address] [place] [address] [phone] Se Levy, Lead System Administration Manager 08/05/21 05/12/22 Clari Francois Pharmacist Pharmacist 08/06/21 06/07/22 [facility] [address] [place], [place] [phone] [place], Assigned Sleep 08/01/21 Angel Turcios Provider [address] [place], [place] [phone] Lesly Celaya MD Assigned Surgical 09/05/21 [address] Provider [place], [place] [phone] Tawana Patel MA [facility] 09/30/21 Worker Ramses Mcpherson Assigned OBGYN 11/07/21 MD Onesimo Provider [address] [place], [place] [phone] Obdulio Barrera MD Critical Care 01/24/22 MD [address] [facility] [address] [place], [place] [address] Obdulio Barrera, Assigned Pulmonology 02/06/22 MD Provider [address] [facility] [address] [place], [place] [address] Lesvia Stanley, GHADA Cardiac Rehabilitation 03/03/22 03/03/23 [facility] Therapist [address] [place] [address] Marilia Deluna, PhD Assigned Behavioral 02/20/22 [address] [facility] [place] [address] Niyah Decker, [facility] Pharmacist Pharmacist 03/07/22 420 [facility] 812 [place] [address] Clari Poole, Pharmacist Pharmacist 03/07/22 06/15/22 [facility] [address] [facility] [address] [place], [place] [phone] Mago Swift, [facility] Lead System Administration Manager Loan Representative - 08/05/21 Clinical documented as of this encounter
--- OUTSIDE RECORDS SUMMARY | 2022-09-21 04:07 | XMS_ITS | Encounter Summary ---
:1980 Author Organization [place] Address [address] [place] [address] Care Team Providers Name Role Phone Aydee Burton MOLD SHOP SUPERVISOR CONSTRUCTION TEACHER Primary Care Provider [phone] Aydee Burton MOLD SHOP SUPERVISOR CONSTRUCTION TEACHER Unavailable [phone] Louisa Hood MOLD SHOP SUPERVISOR CONSTRUCTION TEACHER Unavailable [phone] Se Levy [facility] Unavailable Unavailable Clari Ruiz [facility] Unavailable Angel Hannah MD Unavailable Lesly Celaya MD Unavailable Tawana Patel MA Unavailable Unavailable Ramses Mcpherson MD Unavailable [phone] Obdulio Barrera MD Unavailable [phone] Obdulio Barrera MD Unavailable [phone] Lesvia Stanley Unavailable Marilia Deluna PhD Unavailable Niyah Decker [facility] Unavailable Clari Poole [facility] Unavailable Mago Swift [facility] Unavailable Reason for Visit Reason Comments Musculoskeletal Problem Encounter Details Date Type Department Care Team Description 03/11/2022 Office Visit M [facility] Aydee Burton Christina (Melody galdamez Dx); Clinic Elim ELADIO Mendez CONSTRUCTION TEACHER Anxiety; [address] 5 [phone] Social History Tobacco Use Types Packs/Day Years [...] How often do you attend mormonism or confucianism services? Never 08/05/2021 Do you [...] at Date Recorded Female 11/09/2021 7:53 PM RISK MANAGEMENT ANALYST COVID-19 Exposure Response Date Recorded In the last 10 days, have you been in contact with No / Unsu re 03/24/2022 9:43 AM CDT someone who was confirmed or suspected to have Coronavirus/COVID-19? documented as of this encounter Last Filed Vital Signs Vital Sign Reading Time Taken Comments Blood Pressure 122/76 03/11/2022 2:24 PM CDT Pulse 114 03/11/2022 2:24 PM CDT Temperature 36.4 ??C (97.6 ??F) 03/11/2022 2:24 PM CDT Respiratory Rate 18 03/11/2022 2:24 PM CDT Oxygen Saturation 92% 03/11/2022 2:24 PM CDT Inhaled Oxygen Concentration - - Weight 97.4 kg (214 lb 12.8 oz) 03/11/2022 2:24 PM CDT Height 170.2 cm (5' 7) 03/11/2022 2:24 PM CDT Body Mass Index 33.64 03/11/2022 2:24 PM CDT documented in this encounter Patient Instructions AttachmentsThe following attachments cannot be sent through Care Everywhere. Trigeminal Neuralgia (Kinyarwanda)Rib Contusion or Minor Fracture (Kinyarwanda) documented in this encounter Progress Notes Aydee Burton APRN CNP - 03/11/2022 2:30 PM CDT Images from the original note were not included. Assessment & Plan Cough Stable. Continue follow up with pulm. Note for work restrictions. Form for state completed. Follow up after 1 week of working. Red flag symptoms discussed and if these occur present to the emergency room or call 911Rosalba Lozano verbalizes understanding of plan of care and is in agreement. Anxiety Polypharmacy Awaiting Genesight. Return in about 2 weeks (around 03/25/2022) for genesight testing needed with Lory Nunez-Virtual ; follow up with in virtual MondayMarch 18. . Aydee Burton APRN CNP [facility] Marta is a 42 year old who presents for the following health issues Musculoskeletal Problem Concern - Onset: 03/03/2022 Description: Right and left ankles Intensity: mild Progression of Symptoms: same Accompanying Signs & Symptoms: Gets edema when standing Previous history of similar problem: no Precipitating factors: Worsened by: Standing Alleviating factors: Improved by: Putting feet up Therapies tried and outcome: None Works at [employer]. Seen at [facility]. Ribs fractured on recent imaging from coughing. 03/15/22 will have Right Breast biopsy based on CT results. Wants to Quit job. Job cant help her do light duty. Seeing pulmonology. Asthma but PFTS normal. Air trapping on imaging. She is sleep eating has been referred to [facility]; they recommend GENSIGHT she needs this with my colleague Lory Nunez. IMPRESSION: 1. No acute abnormality in the chest. No evidence for pulmonary embolism. 2. Subacute mildly displaced fractures of the left fourth and fifth ribs anterolaterally and of the right fifth rib anteriorly. 3. Indeterminate 1 cm nodule in the right breast superiorly and medially. Breast malignancy cannot be excluded. Clinical and mammographic correlation is recommended. A/P: 42F being seen for moderate persistent [...] noticing improvement. No post-nasal gtt or GERD. Review of Systems Constitutional, HEENT, cardiovascular, pulmonary, GI, , musculoskeletal, neuro, skin, endocrine and psych systems are negative, except as otherwise noted in the HPI. Objective BP 122/76 Pulse 114 Temp 97.6 ??F (36.4 ??C) (Tympanic) Resp 18 Ht 1.702 m (5' 7) Wt 97.4kg (214 lb 12.8 oz) LMP 12/11/2021 (Exact Date) SpO2 92% BMI 33.64 kg/m?? Body mass index is 33.64 kg/m??. Physical Exam GENERAL: healthy, alert and no distress RESP: lungs clear to auscultation - no rales, rhonchi or wheezes; hacking dry cough CV: regular rate and rhythm, normal S1 S2, no S3 or S4, no murmur, click or rub, no peripheral edemaand peripheral pulses strong PSYCH: mentation appears normal, affect normal/bright documented in this encounter Plan of Treatment Upcoming Encounters Date Type Specialty Care Team Description 09/26/2022 Appointment Speech Therapy Obdulio Barrera MD [address] [facility] [address] [place], [place] [address] Anabel Chew, ENVIRONMENTAL SAFETY SPECIALIST [place] 0085[address] [facility] [address] [place], [place] [address] 09/27/2022 Therapy Visit Physical Therapy Luisana Watkins, PT [address] [place] [address] 09/29/2022 Virtual Visit Pain & Palliative Marilia Deluna, [facility] PhD [address] [place], [place] [address] 09/30/2022 Office Visit Family Practice Aydee Burton APRN CONSTRUCTION TEACHER [address] [place] [address] 10/03/2022 Therapy Visit Physical Therapy Una Reardon, PT [address] [place] [address] 10/10/2022 Hospital Encounter Surgery Lesly Celaya MD [address] [place], [place] [phone] 10/10/2022 Office Visit Surgery Lesly Celaya MD [address] [place], [place] [phone] Ninoska Flowers PA-C [address] [place], [place] [phone] 10/10/2022 Surgery Surgery Lesly Celaya, EXCISION, MASSES - MD back, abdomen, [address] [place] [address] 10/11/2022 Virtual Visit Pharm Bryce Ruiz, Clari Banks, [facility] [address] [address] 10/14/2022 Appointment Speech Therapy Anabel Chew, ENVIRONMENTAL SAFETY SPECIALIST [address] [address] 10/21/2022 Office Visit Pulmonology Obdulio Barrera MD [address] [place] [address] 276 [place], [place] [address] 10/25/2022 PRE VISIT ENT Charo Burton MD Previsit [address] [place] [address] 10/25/2022 Office Visit Charo Carter MD [address] [place] [address] 10/25/2022 Office Visit ENT Provider, 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 Decator Operator 10/28/2022 Appointment Speech Therapy Anabel Chew, ENVIRONMENTAL SAFETY SPECIALIST [address] 9[address] 11/17/2022 Appointment Speech Therapy Anabel Chew, ENVIRONMENTAL SAFETY SPECIALIST [facility] [address] [facility] 396 [place], [place] [phone] 12/23/2022 Office Visit Neurology Colby Yeung MD [address] [facility] [place] [address] Scheduled Procedures Name Priority Associated Diagnoses Date/Time EXCISION, MASS, TORSO Lipoma of skin and subcuta neous 10/10/2022 7:30 AM RISK MANAGEMENT ANALYST tissue documented as of this encounter Visit Diagnoses Diagnosis Cough - Primary Anxiety Anxiety state, unspecified Polypharmacy Issue of repeat prescriptions Lipoma of skin and subcutaneous tissue Lipoma of other skin and subcutaneous ti ssue documented in this encounter Additional Health Concerns Assessment Noted Time PHQ-9 Depression Total Score: 20 03/02/2022 7:02 AM CD T documented as of this encounter Care Teams Collar Starcher Relationship Specialty Start Date End Date Aydee Burton, PCP - General Nurse Practitioner - 05/17/21 MOLD SHOP SUPERVISOR CONSTRUCTION TEACHER Family [address] [place] [address] Aydee Burton, Assigned PCP 04/28/21 MOLD SHOP SUPERVISOR CONSTRUCTION TEACHER [address] [place], [place] [phone] Louisa Hood, Assigned Neuroscience 07/11/21 MOLD SHOP SUPERVISOR CONSTRUCTION TEACHER Provider [address] [place], [place] [address] Se Levy, Lead Distribution Center Administrator 08/05/21 05/12/22 Clari Francois Pharmacist Pharmacist 08/06/21 06/07/22 Jocelyn [facility] [address] [facility] [address] [place], [place] [address] [place], Assigned Sleep 08/01/21 Angel Turcios, Provider [address] [place] [address] Lesly Celaya MD Assigned Surgical 09/05/21 [address] [facility] [place] [address] Tawana Patel MA [facility] 09/30/21 Worker Ramses Mcpherson Assigned OBGYN 11/07/21 MD Onesimo Provider [address] [place], [place] [phone] Obdulio Barrera MD Critical Care 01/24/[address] [place] [address] 276 [place], [place] [address] Obdulio Barrera, Tone Pulmonology 02/06/22 MD Provider [address] [place] [address] 276 [place], [place] [address] Lesvia Stanley EP Cardiac Rehabilitation 03/03/22 03/03/23 [facility] Therapist [address] [place] [address] Marilia Deluna, PhD Assigned Behavioral 02/20/22 [address] [facility] Health Provider [place], [place] [address] Niyah Decker, [facility] Pharmacist Pharmacist 03/07/22 420 [facility] 8[address] [place], [place] [address] Clari Poole, Pharmacist Pharmacist 03/07/22 06/15/22 [facility] [address] [facility] [address] [place], [place] [phone] Mago Swift, [facility] Lead Distribution Center Administrator Family Consumer Scientist - 08/05/21 Clinical documented as of this encounter
--- OUTSIDE RECORDS SUMMARY | 2022-09-21 04:07 | XMS_ITS | Encounter Summary ---
:1980 Author Organization [place] Address [address] [place] [address] Care Team Providers Name Role Phone Aydee Burton BROODMARE FOREMAN POTATO CHIP FRIER Primary Care Provider [phone] Aydee Burton BROODMARE FOREMAN POTATO CHIP FRIER Unavailable [phone] Louisa Hood BROODMARE FOREMAN POTATO CHIP FRIER Unavailable [phone] Se Levy [facility] Unavailable Unavailable Clari Ruiz [facility] Unavailable Angel Hannah MD Unavailable Lesly Celaya MD Unavailable Tawana Patel MA Unavailable Unavailable Ramses Mcpherson MD Unavailable [phone] Obdulio Barrera MD Unavailable [phone] Obdulio Barrera MD Unavailable [phone] Lesvia Stanley Unavailable Marilia Deluna PhD Unavailable Niyah Decker [facility] Unavailable Clari Poole [facility] Unavailable Mago Swift [facility] Unavailable Reason for Referral Diagnostic Imaging Mammo (Routine) - Pending Review Specialty Diagnoses / Procedures Referred By Contact Refer red To Contact Diagnoses Abnormal CT scan, chest Breast nodule Aydee Burton APRN Procedures MA Post Procedure Right POTATO CHIP FRIER [address] [place] [address] Referral ID Status Reason Start Date Expiration Date Visits V isits Requested Authorized [id number] Pending 03/10/2022 03/10/2023 1 1 Review Reason for Visit Diagnostic Imaging Mammo (Routine) - Pending Review Specialty Diagnoses / Procedures Referred By Contact Refer red To Contact Diagnoses Abnormal CT scan, chest Breast nodule Aydee Burton APRN Procedures MA Post Procedure Right POTATO CHIP FRIER [address] [place] [address] Referral ID Status Reason Start Date Expiration Date Visits V isits Requested Authorized [id number] Pending 03/10/2022 03/10/2023 1 1 Review Encounter Details Date Type Department Care Team Description 03/15/2022 Hospital Encounter [facility] Aydee Burton rmbianca CT scan, chest; [facility] ELADIO Mendez Breast [facility] POTATO CHIP FRIER [address] [facility] [address] [place] [address], [address] [place] [address] [phone] Social History Tobacco Use Types Packs/Day Years [...] often do you attend oriental orthodox or confucianist services? 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 COVID-19 Exposure Response Date Recorded In the [...] persistent cough asthma without complication fluticasone (FLONASE) [place] 2 sprays into 18.2 mL 0 03/0804/05/2022 [...] tabletIndications: evening Moderate persistent asthma without complication ondansetron Take 1 tablet (4 mg) 20 tablet 0 03/08/2022 (ZOFRAN-ODT) 4 MG ODT by mouth every 8 tabIndications: S/P hours as needed for laparoscopic nausea hysterectomy tiotropium (SPIRIVA) 18 Inhale 1 capsule (18 30 capsule 3 06/06/2022 MCG inhaled mcg) into the lungs capsuleIndications: SOB daily (shortness of breath) documented as of this encounter Miscellaneous Notes Result Encounter Note - Aydee Burton APRN CNP - 03/15/2022 3:44 PM CDT IMPRESSION: Uncomplicated ultrasound guided core needle biopsy of the RIGHT breast. Results pending. TARA Spivey [facility] TARA Spivey [facility] documented in this encounter Plan of Treatment Upcoming Encounters Date Type Specialty Care Team Description 09/26/2022 Appointment Speech Therapy Obdulio Barrera MD [address] [facility] [address] [place] [address] Anabel Chew, CELINE [facility] [address] [facility] [address] [place] [address] 09/27/2022 Therapy Visit Physical Therapy Luisana Watkins, PT [address] [place] [address] 09/29/2022 Virtual Visit Pain & Palliative Marilia Deluna, [facility] PhD [address] [place] [address] 09/30/2022 Office Visit Family Practice Aydee Burton Vanessa, BROODMARE FOREMAN POTATO CHIP FRIER [address] [place], [place] [address] 10/03/2022 Therapy Visit Physical Therapy Una Reardon, PT [address] [place] [address] 10/10/2022 Hospital Encounter Surgery Lesly Celaya MD [address] [place], [place] [phone] 10/10/2022 Office Visit Surgery Lesly Celaya MD [address] [place] [address] Ninoska Flowers PA-Ynes [address] [place], [place] [phone] 10/10/2022 Surgery Surgery Lesly Celaya, EXCISION, MASSES - MD back, abdomen, [address] right lower BL extremity [place], [place] [phone] 10/11/2022 Virtual Visit Clari Su, [facility] [address] [id number] [place], [place] [address] 10/14/2022 Appointment Speech Therapy Anabel Chew, HYDRAULIC REPAIRER [facility] [address] [facility] 396 [place], [place] [address] 10/21/2022 Office Visit Pulmonology Obdulio Barrera MD [address] [facility] [address] [place], [place] [address] 10/25/2022 PRE VISIT ENT Charo Burton MD Previsit [address] [place] [address] 436785 10/25/2022 Office Visit Charo Carter MD [address] [place] [address] 483235 10/25/2022 Office Visit ENT Provider, 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 Call Worker 10/28/2022 Appointment Speech Therapy Anabel Chew, HYDRAULIC REPAIRER [address] [place], [place] [address] 11/17/2022 Appointment Speech Therapy Anabel Chew, HYDRAULIC REPAIRER [address] [place], [place] [address] 12/23/2022 Office Visit Neurology Colby Yeung MD [address] [place] [address] Scheduled Procedures Name Priority Associated Diagnoses Date/Time EXCISION, MASS, TORSO Lipoma of skin and subcuta neous 10/10/2022 7:30 AM UNION LABORER tissue documented as of this encounter Procedures Procedure Name Priority Date/Time Associated Diagnosis Comme nts MA POST PROCEDURE Routine 03/15/2022 8:[address] scan, Results for this RIGHT CDT chest procedure are in Breast nodule the results section. documented in this encounter Results MA Post Procedure Right (03/15/2022 8:39 AM CDT) Anatomical Region Laterality Modality Breast Right Mammography Specimen (Source) Anatomical Location Collection Method / Collectio n Time Received Time / Laterality Volume Addenda Addendum by Jerel Dan MD on 03/17/2022 8:11 AM CDT Pathology Results: Fibroadenoma. Please see full pathology report for fur ther details. Results are concordant with imaging find ings. Recommendation: Routine annual mammograp hy. JEREL DAN MD Impressions 03/15/2022 8:40 AM CDT IMPRESSION: ?Uncomplicated ultrasound guided core needle biopsy of the RIGHT breast. JEREL DAN MD Narrative 03/15/2022 8:40 AM CDT Ultrasound guided RIGHT breast biopsy. Comparisons: 03/10/2022 FINDINGS: Procedure, risks, benefits and alternatives were discussed with the patient and the patient gave wr itten and verbal consent. Aseptic technique was utilized. 1% lidoc rao was utilized for local anesthesia. Under ultrasound guidance, b iopsy of mass was performed and marker placed as follows and images were archived: Size: 14 gauge core needle biopsy system Number of cores: 3 Position: 1:00 6 cm from the nipple on t he RIGHT. Marker: HydroMark Less than 5 mL blood loss. Pressure was held over this area for approximately 10 minutes. A dressing was placed and care instructions were discussed with the patient. Post biopsy mammogram demonstrates clip deployment. Procedure Note Jerel Dan MD - 03/15/2022 Ultrasound guided RIGHT breast biopsy. Comparisons: 03/10/2022 FINDINGS: Procedure, risks, benefits and alternatives were discussed with the patient and the patient gave wr itten and verbal consent. Aseptic technique was utilized. 1% lidoc rao was utilized for local anesthesia. Under ultrasound guidance, b iopsy of mass was performed and marker placed as follows and images were archived: Size: 14 gauge core needle biopsy system Number of cores: 3 Position: 1:00 6 cm from the nipple on t he RIGHT. Marker: HydroMark Less than 5 mL blood loss. Pressure was held over this area for approximately 10 minutes. A dressing was placed and care instructions were discussed with the patient. Post biopsy mammogram demonstrates clip deployment. IMPRESSION: Uncomplicated ultrasound etienne ded core needle biopsy of the RIGHT breast. JEREL DAN MD Aydee Burton APRN POTATO CHIP FRIER IMG MAMMOGRAPHY ORDERABL ES documented in this encounter Visit Diagnoses Diagnosis Abnormal CT scan, chest Nonspecific (abnormal) findings on radio logical and other examination of other intrathoracic organs Breast nodule Other (abnormal) findings on radiologica l examination of breast Lipoma of skin and subcutaneous tissue Lipoma of other skin and subcutaneous ti ssue documented in this encounter Additional Health Concerns Assessment Noted Time PHQ-9 Depression Total Score: 20 03/02/2022 7:02 AM CD T documented as of this encounter Care Teams Loop Cutter Relationship Specialty Start Date End Date Aydee Burton, PCP - General Nurse Practitioner - 05/17/21 BROODMARE FOREMAN POTATO CHIP FRIER Family [address] [place], [place] [phone] Aydee Burton, Assigned PCP 04/28/21 BROODMARE FOREMAN POTATO CHIP FRIER [address] [place], [place] [phone] Louisa Hood, Assigned Neuroscience 07/11/21 BROODMARE FOREMAN POTATO CHIP FRIER Provider [address] [place], [place] [address] Se Levy, Lead Geriatric Nurse Assistant 08/05/21 05/12/22 Clari Francois Pharmacist Pharmacist 08/06/21 06/07/22 [facility] [address] [place], [place] [address] Tone Hannah Sleep 08/01/21 Angel Turcios Provider [address] [place], [place] [address] Lesly Celaya MD Assigned Surgical 09/05/21 [address] [place] [place] [address] Tawana Patel MA [facility]ly [facility] 09/30/21 Worker Ramses Mcpherson Assigned OBGYN 11/07/21 MD Onesimo Provider [address] [place] [address] Obdulio Barrera MD Critical Care 01/24/[address] [place] [address] 276 [place], [place] [address] Obdulio Barrera, Assigned Pulmonology 02/06/22 MD Provider [address] [place] [address] 276 [place], [place] [address] Lesvia Stanley, GHADA Cardiac Rehabilitation 03/03/22 03/03/23 [facility] Therapist [address] [place] [address] Marilia Deluna, PhD Assigned Behavioral 02/20/22 [address] [facility] [place] [address] Niyah Decker, [facility] Pharmacist Pharmacist 03/07/22 [address] [facility] 8[address] [place] [address] Clari Poole, Pharmacist Pharmacist 03/07/22 06/15/22 [facility] [address] [place] [address] Mago Swift, [facility] Lead Geriatric Nurse Assistant Senior Asic Design Engineer - 08/05/21 Clinical documented as of this encounter
--- OUTSIDE RECORDS SUMMARY | 2022-09-21 04:07 | XMS_ITS | Encounter Summary ---
:1980 Author Organization [place] Address [address] [place] [address] Care Team Providers Name Role Phone Aydee Burton CATHODIC PROTECTION TECHNICIAN NEUROSURGERY PHYSICIAN Primary Care Provider [phone] Aydee Burton CATHODIC PROTECTION TECHNICIAN NEUROSURGERY PHYSICIAN Unavailable [phone] Louisa Hood CATHODIC PROTECTION TECHNICIAN NEUROSURGERY PHYSICIAN Unavailable [phone] Se Levy [facility] Unavailable Unavailable Clari Ruiz [facility] Unavailable [phone] Angel Hannah MD Unavailable Lesly Celaya MD Unavailable Tawana Patel MA Unavailable Unavailable Ramses Mcpherson MD Unavailable [phone] Obdulio Barrera MD Unavailable [phone] Obdulio Barrera MD Unavailable [phone] Lesvia Stanley Unavailable Marilia Deluna PhD Unavailable Niyah Decker [facility] Unavailable Clari Poole [facility] Unavailable Mago Swift [facility] Unavailable Reason for Referral Diagnostic Imaging Mammo (Routine) - Pending Review Specialty Diagnoses / Procedures Referred By Contact Refer red To Contact Diagnoses Abnormal CT scan, chest Breast nodule Aydee Burton APRN Procedures MA Diagnostic with Implants Bilateral w/Matias NEUROSURGERY PHYSICIAN [address] [place] [address] Referral ID Status Reason Start Date Expiration Date Visits V isits Requested Authorized [id number] Pending 03/08/2022 03/08/2023 1 1 Review Reason for Visit Diagnostic Imaging Mammo (Routine) - Pending Review Specialty Diagnoses / Procedures Referred By Contact Refer red To Contact Diagnoses Abnormal CT scan, chest Breast nodule Aydee Burton APRN Procedures MA Diagnostic with Implants Bilateral w/Matias NEUROSURGERY PHYSICIAN [address] [place] [address] Referral ID Status Reason Start Date Expiration Date Visits V isits Requested Authorized [id number] Pending 03/08/2022 03/08/2023 1 1 Review Encounter Details Date Type Department Care Team Description 03/10/2022 Hospital Encounter [facility] Aydee Burton rmbianca CT scan, chest; [facility] ELADIO Mendez Breast [facility] NEUROSURGERY PHYSICIAN [address] [facility] [address] [place] [address], [address] [place] [address] [phone] Social History Tobacco Use Types Packs/Day Years [...] How often do you attend pentecostalism or sabianism services? Never 08/05/2021 Do you [...] at Date Recorded Female 11/09/2021 7:53 PM PRECISION LENS GENERATOR COVID-19 Exposure Response Date Recorded In the [...] 50 mouth daily mcg (2000 units) tablet azithromycin Take 2 tablets (500 6 tablet 0 03/08/202211/2021 (ZITHROMAX) 250 MG mg) by mouth daily tabletIndications: SOB for 1 day, THEN 1 (shortness of breath) tablet (250 mg) daily for 4 days. ascorbic acid (VITAMIN Take 750 mg by mouth 0 06/16/2022 C) 250 MG CHEW chewable daily tablet fluticasone (FLONASE) [place] 2 sprays into 18.2 mL 0 03/0804/05/2022 50 MCG/ACT nasal both nostrils daily sprayIndications: SOB (shortness of breath) gabapentin (NEURONTIN) 4 times daily 0 12/14/2021 04/29/2022 400 MG capsule methocarbamol (ROBAXIN) Take 1-1.5 tablets 90 tablet 1 12/202105/14/2022 500 MG (500-750 mg) by mouth tabletIndications: 3 times daily as Chronic myofascial needed for muscle pain, Trigger point of spasms shoulder region, unspecified laterality ondansetron Take 1 tablet (4 mg) 20 [...] Note - Aydee Burton APRN CNP - 03/10/2022 11:59 PM CDT Biopsy will be of RIGHT breast; radiology to be notified to addend diagnostic mammogram note. TARA Spivey [facility] Result Encounter Note - Aydee Burton APRN CNP - 03/10/2022 6:03 PM CDT Needs biopsy. Will discuss in clinic tomorrow. TARA Spivey documented in this encounter Plan of Treatment Upcoming Encounters Date Type Specialty Care Team Description 09/26/2022 Appointment Speech Therapy Obdulio Barrera MD [address] [place] [address] Anabel Chew, WIRE STITCHER MACHINE [facility] [address] [facility] 396 [place], [place] [address] 09/27/2022 Therapy Visit Physical Therapy Luisana Watkins, PT [address] [place] [address] 09/29/2022 Virtual Visit Pain & Palliative Marilia Deluna, [facility] PhD [address] [place], [place] [phone] 09/30/2022 Office Visit Family Practice Aydee Burton, CATHODIC PROTECTION TECHNICIAN NEUROSURGERY PHYSICIAN [address] [place] [address] 10/03/2022 Therapy Visit Physical Therapy Una Reardon, PT [address] [place] [address] 10/10/2022 Hospital Encounter Surgery Lesly Celaya MD [address] [place] [address] 10/10/2022 Office Visit Surgery Lesly Celaya MD [address] [place] [address] Ninoska Flowers, PA-C [address] [facility] [address] [place] [address] 10/10/2022 Surgery Surgery Lesly Celaya, EXCISION, MASSES - MD back, abdomen, [address] right lower [facility] [place] [address] 10/11/2022 Virtual Visit Clari Su, [facility] [address] [phone] [place], [place] [address] 10/14/2022 Appointment Speech Therapy Anabel Chew, WIRE STITCHER MACHINE [address] [address] 10/21/2022 Office Visit Pulmonology Obdulio Barrera MD [address] [facility] 276 [place] [address] 10/25/2022 PRE VISIT ENT Charo Burton MD Previsit [address] [place] [address]035 10/25/2022 Office Visit ENT Charo Burton MD [address] [place] [address] [phone] 10/25/2022 Office Visit ENT Provider, 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 Electric Cell Tender 10/28/2022 Appointment Speech Therapy Anabel Chew, WIRE STITCHER MACHINE [address] [address] 11/17/2022 Appointment Speech Therapy Anabel Chew WIRE STITCHER MACHINE [address] [address] 12/23/2022 Office Visit Neurology Colby Yeung MD [address] [place] [address] Scheduled Procedures Name Priority Associated Diagnoses Date/Time EXCISION, MASS, TORSO Lipoma of skin and subcuta neous 10/10/2022 7:30 AM PRECISION LENS GENERATOR tissue documented as of this encounter Procedures Procedure Name Priority Date/Time Associated Comments Diagnosis MA DIAGNOSTIC WITH Routine 03/10/2022 3:[address] scan , Results for this IMPLANTS BILATERAL CDT chest procedure are in W/ MATIAS Breast nodule the results section. documented in this encounter Results MA Diagnostic with Implants Bilateral w/Matias (03/10/2022 3:10 PM CDT) Anatomical Region Laterality Modality Breast Bilateral Mammography Specimen (Source) Anatomical Location Collection Method / Collectio n Time Received Time / Laterality Volume Impressions 03/10/2022 3:39 PM CDT IMPRESSION: BI-RADS CATEGORY: 4 - Suspicious Abnormality-Biopsy Should Be Considered. RECOMMENDED FOLLOW-UP: Biopsy. Ultrasound-guided core needle biopsy of the LEFT breast. The patient was given the results of the examination. WILMAR DAN MD Narrative 03/10/2022 3:39 PM CDT Examination: Bilateral digital diagnostic mammography and digital breast tomosynthesis with computer aided detection, and focused ultrasound of the RIGHT breast, 2. Comparison: Chest CT dated 03/08/2022. History: RIGHT breast nodule seen on rec ent chest CT. BREAST DENSITY: Scattered fibroglandular densities Findings: Bilateral mammography with dig ital breast tomosynthesis was performed. Retropectoral silicone implan ts are seen and appear intact. Oval circumscribed mass is seen posterio rly in the upper inner quadrant of the RIGHT breast. No concern ing mammographic/tomographic findings in the LEFT breast. Focussed ultrasound by radiologist and t echnologist of the upper inner quadrant of the RIGHT breast was perform ed. Oval heterogeneously hypoechoic mass with somewhat indistinct margins and posterior acoustic shadowing is seen at 1:00 6 cm from the nipple on the RIGHT. This measures 1.1 x 0.6 x 1.1 cm and acc ounts for the mammographic and CT findings. Aydee Burton CATHODIC PROTECTION TECHNICIAN NEUROSURGERY PHYSICIAN IMG MAMMOGRAPHY ORDERABL ES documented in this [...] as of this encounter Care Teams Tire Repairer Relationship Specialty Start Date End Date Aydee Burton, PCP - General Nurse Practitioner - 05/17/21 CATHODIC PROTECTION TECHNICIANValerio KOO Family [address] [place] [address]8232 Aydee Burton, Assigned PCP 04/28/21 CATHODIC PROTECTION TECHNICIAN NEUROSURGERY PHYSICIAN [address] [place], [place] [address] Erwin Louisa Grisel, Assigned Neuroscience 07/11/21 CATHODIC PROTECTION TECHNICIAN NEUROSURGERY PHYSICIAN Provider [address] [place], [place] [address] Se Levy, Lead Tire Repairer 08/05/21 05/12/22 Clari Francois Pharmacist Pharmacist 08/06/21 06/07/22 [facility] [address] [place], [place] [address] [place], Assigned Sleep 08/01/21 Angel Turcios, Provider [address] [place], [place] [address] Lesly Celaya MD Assigned Surgical 09/05/21 [address] Provider [place], [place] [address] Tawana Patel [facility] 09/30/21 Worker Ramses Mcpherson Assigned OBGYN 11/07/21 MD Onesimo Provider [address] [place], [place] [address] Obdulio Barrera MD Critical Care 01/24/[address] 8[address] Obdulio Barrera, Assigned Pulmonology 02/06/[address] 849[address] Lesvia Stanley EP Cardiac Rehabilitation 03/03/22 03/03/23 [facility] Therapist [address] [place], [place] [address] Marilia Deluna, PhD Assigned Behavioral 02/20/22 [address] [facility] [place] [address] Niyah Decker, [facility] Pharmacist Pharmacist 03/07/22 420 [facility] 8[address] [place], [place] [address] Clari Poole, Pharmacist Pharmacist 03/07/22 06/15/22 [facility] [address] [facility] [place] [id number] Mago Swift, [facility] Lead Tire Repairer Bottom Brusher - 08/05/21 Clinical documented as of this encounter
--- OUTSIDE RECORDS SUMMARY | 2022-09-21 04:07 | XMS_ITS | Encounter Summary ---
:1980 Author Organization [facility] Address [address] [place] [address] Care Team Providers Name Role Phone Aydee Burton AUTOMOTIVE PARTS INTERPRETER PREPARATION PLANT REPAIRER Primary Care Provider [phone] Aydee Burton AUTOMOTIVE PARTS INTERPRETER PREPARATION PLANT REPAIRER Unavailable [phone] Louisa Hood AUTOMOTIVE PARTS INTERPRETER PREPARATION PLANT REPAIRER Unavailable [phone] Se Levy [facility] Unavailable Unavailable Clari Ruiz [facility] Unavailable Angel Hannah MD Unavailable Lesly Celaya MD Unavailable Tawana Patel MA Unavailable Unavailable Ramses Mcpherson MD Unavailable [phone] Obdulio Barrera MD Unavailable [phone] Obdulio Barrera MD Unavailable [phone] Lesvia Stanley Unavailable Marilia Deluna PhD Unavailable Niyah Decker [facility] Unavailable Clari Poole [facility] Unavailable Mago Swift [facility] Unavailable Reason for Referral Diagnostic Imaging Ultrasound (Routine) - Pending Review Specialty Diagnoses / Procedures Referred By Contact Refer red To Contact Diagnoses Leg swelling Francisco Javier Nelson Buitrago Procedures US Lower Extremity Venous Duplex Bilateral MD Tima [address] [place] [address] Referral ID Status Reason Start Date Expiration Date Visits V isits Requested Authorized [id number] Pending 03/08/2022 03/08/2023 1 1 Review Reason for Visit Diagnostic Imaging Ultrasound (Routine) - Pending Review Specialty Diagnoses / Procedures Referred By Contact Refer red To Contact Diagnoses Leg swelling Nelson Mcintyre Procedures US Lower Extremity Venous Duplex Bilateral MD Tima [address] [place] [address] Referral ID Status Reason Start Date Expiration Date Visits V isits Requested Authorized [id number] Pending 03/08/2022 03/08/2023 1 1 Review Encounter Details Date Type Department Care Team Description 03/08/2022 Hospital Encounter [facility] Nelson Mcintyre Leg swelling [facility] Iftikhar Alfred MD [address] [facility] [address] [address] [place] [address] [phone] (Wo rk) Social History Tobacco Use Types [...] How often do you attend spiritism or nondenominational services? Never 08/05/2021 Do you belong to [...] at Date Recorded Female 11/09/2021 7:53 PM OFFICE MACHINES TEACHER COVID-19 Exposure Response Date Recorded In the last 10 days, have you been in contact with No / Unsu re 03/08/2022 2:16 PM CDT someone who was confirmed or [...] MG CHEW chewable daily tablet fluticasone (FLONASE) [place] 2 sprays into 18.2 mL 0 03/0804/05/2022 [...] Obdulio Barrera MD [address] [facility] [address] [place], [place] [address] Anabel Chew, REAL ESTATE CLOSING COORDINATOR [address] [place], [place] [address] 09/27/2022 Therapy Visit Physical Therapy Luisana Watkins, PT [address] [place] [address] 09/29/2022 Virtual Visit Pain & Palliative Marilia Deluna, Care PhD [address] [place] [address] 09/30/2022 Office Visit Family Practice Aydee Burton, AUTOMOTIVE PARTS INTERPRETER PREPARATION PLANT REPAIRER [address] [place], [place] [phone] 10/03/2022 Therapy Visit Physical Therapy Una Reardon, PT [address] [place] [phone] 10/10/2022 Hospital Encounter Surgery Lesly Celaya MD [address] [place], [place] [address] 10/10/2022 Office Visit Surgery Lesly Celaya MD [address] [place], [place] [address] Ninoska Flowers PA-Ynes [address] [place], [place] [address] 10/10/2022 Surgery Surgery Lesly Celaya, EXCISION, MASSES - MD back, abdomen, [address] extremity [place], [place] [phone] 10/11/2022 Virtual Visit Pharm Bryce Ruiz, Clari Banks, [address] [address] 10/14/2022 Appointment Speech Therapy Anabel Chew, REAL ESTATE CLOSING COORDINATOR [facility] [address] [facility] [address] [place], [place] [address] 10/21/2022 Office Visit Pulmonology Obdulio Barrera MD [address] [facility] [address] [place], [place] [address] 10/25/2022 PRE VISIT ENT Charo Burton MD Previsit [address] [place] [phone] 10/25/2022 Office Visit Charo Carter MD [address] [place] [phone] 10/25/2022 Office Visit ENT Provider, 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 Roll Slicing Machine Tender 10/28/2022 Appointment Speech Therapy Anabel Chew, CELINE [address] [place] [address] 11/17/2022 Appointment Speech Therapy Anabel Chew SLP [address] [place] [address] 12/23/2022 Office Visit Neurology Colby Yeung MD [address] [place] [address] Scheduled Procedures Name Priority Associated Diagnoses Date/Time EXCISION, MASS, TORSO Lipoma of skin and subcuta neous 10/10/2022 7:30 AM OFFICE MACHINES TEACHER tissue documented as of this encounter Procedures Procedure Name Priority Date/Time Associated Diagnosis Comme nts US LOWER EXTREMITY STAT 03/08/2022 4:44 PM Leg swelling Res ults for this VENOUS DUPLEX CDT procedure are in BILATERAL the results section. documented in this encounter Results US Lower Extremity Venous Duplex Bilateral (03/08/2022 4:44 PM CDT) Anatomical Region Laterality Modality Vascular, Thigh, Leg Ultrasound Specimen (Source) Anatomical Collection Method Collection Time Re ceived Time Location / / Volume Laterality 03/08/2022 4:22 PM CDT Impressions 03/08/2022 5:25 PM CDT IMPRESSION: 1. ??No deep venous thrombosis in the bi lateral lower extremities. Narrative 03/08/2022 5:25 PM CDT EXAM: US LOWER EXTREMITY VENOUS DUPLEX BILATERAL LOCATION: [facility] DATE/TIME: 03/08/2022 4:22 PM INDICATION: b leg swelling (r>l), varico sities in left leg, ?DVT COMPARISON: None. TECHNIQUE: Venous Duplex ultrasound of b ilateral lower extremities with and without compression, augmentation and duplex. Color flow and spectral Doppler with waveform analysis performed. FINDINGS: Exam includes the common femor al, femoral, popliteal veins as well as segmentally visualized deep calf veins and greater saphenous vein. RIGHT: No deep vein thrombosis. No super ficial thrombophlebitis. No popliteal cyst. LEFT: No deep vein thrombosis. No superf icial thrombophlebitis. No popliteal cyst. Procedure Note Boogie Garcia MD - 03/08/2022Formatti ng of this note might be different from the original. EXAM: US LOWER EXTREMITY VENOUS DUPLEX B ILATERAL LOCATION: [facility] DATE/TIME: 03/08/2022 4:22 PM INDICATION: b leg swelling (r>l), varico sities in left leg, ?DVT COMPARISON: None. TECHNIQUE: Venous Duplex ultrasound of b ilateral lower extremities with and without compression, augmentation and duplex. Color flow and spectral Doppler with waveform analysis performed. FINDINGS: Exam includes the common femor al, femoral, popliteal veins as well as segmentally visualized deep calf veins and greater saphenous vein. RIGHT: No deep vein thrombosis. No super ficial thrombophlebitis. No popliteal cyst. LEFT: No deep vein thrombosis. No superf icial thrombophlebitis. No popliteal cyst. IMPRESSION: 1. No deep venous thrombosis in the bila teral lower extremities. Nelson Mcintyre MD IMG US ORDERABLES documented in this encounter Visit Diagnoses Diagnosis Leg swelling Swelling of limb Lipoma of skin and subcutaneous tissue Lipoma of other skin and subcutaneous ti ssue documented in this encounter Additional Health Concerns Infection Onset Date Last Indicated Resolved Time Rule Out COVID-19 03/08/2022 03/08/2022 03/08/2022 4:1 9 PM CDT Rule Out Pertussis 03/08/2022 03/08/2022 03/09/2022 9: 56 AM CDT Assessment Noted Time PHQ-9 Depression Total Score: 20 03/02/2022 7:02 AM CD T documented as of this encounter Care Teams User Experience Developer Relationship Specialty Start Date End Date Aydee Burton, PCP - General Nurse Practitioner - 05/17/21 AUTOMOTIVE PARTS INTERPRETER PREPARATION PLANT REPAIRER Family [address] [place] [address] [phone] Aydee Burton, Assigned PCP 04/28/21 AUTOMOTIVE PARTS INTERPRETER [facility] [address] [place], [place] [address] Louisa Hood, Assigned Neuroscience 07/11/21 AUTOMOTIVE PARTS INTERPRETER PREPARATION PLANT REPAIRER Provider [address] [place] [address] Se Levy, Lead Operational Risk Manager 08/05/21 05/12/22 FULL TIME PARAMEDICClari Ordonez Pharmacist Pharmacist 08/06/21 06/07/22 Jocelyn [facility] [address] [place] [address] [place], Assigned Sleep 08/01/21 Angel Turcios, Provider [address] [place] [address] Lesly Celaya MD Assigned Surgical 09/05/21 [address] [facility] [place] [address] Tawana Patel [facility] 09/30/21 Worker Ramses Mcpherson Assigned OBGYN 11/07/21 MD Onesimo Provider [address] [place] [address] Obdulio Barrera MD Critical Care 01/24/[address] [place] [address] Obdulio Barrera, Assigned Pulmonology 02/06/[address] [place] [address] Lesvia Stanley EP Cardiac Rehabilitation 03/03/22 03/03/23 [facility] Therapist [address] [id number] Marilia Deluna, PhD Assigned Behavioral 02/20/22 [address] [facility] [place] [address] Niyah Decker, [facility] Pharmacist Pharmacist 03/07/22 [address] [facility] [address] [place] [address] Clari Poole, Pharmacist Pharmacist 03/07/22 06/15/22 [facility] [address] [facility] [address] [address] Mago Swift, [facility] Lead Operational Risk Manager Cooker Operator - 08/05/21 Clinical documented as of this encounter
--- OUTSIDE RECORDS SUMMARY | 2022-09-21 04:07 | XMS_ITS | Encounter Summary ---
:1980 Author Organization [facility] Address [address] [place] [address] Care Team Providers Name Role Phone Aydee Burton NUT THREADER PUBLIC AID ELIGIBILITY ASSISTANT Primary Care Provider [phone] Aydee Burton NUT THREADER PUBLIC AID ELIGIBILITY ASSISTANT Unavailable [phone] Louisa Hood NUT THREADER PUBLIC AID ELIGIBILITY ASSISTANT Unavailable [phone] Se Levy [facility] Unavailable Unavailable Clari Ruiz [facility] Unavailable Angel Hannah MD Unavailable Lesly Celaya MD Unavailable Tawana Patel MA Unavailable Unavailable Ramses Mcpherson MD Unavailable [phone] Obdulio Barrera MD Unavailable Obdulio Barrera MD Unavailable [phone] Lesvia Stanley Unavailable Marilia Deluna PhD Unavailable Niyah Decker [facility] Unavailable Clari Poole [facility] Unavailable Mago Swift [facility] Unavailable Reason for Referral Diagnostic Imaging Ultrasound (Routine) - Pending Review Specialty Diagnoses / Procedures Referred By Contact Refer red To Contact Diagnoses Abnormal CT scan, chest Breast nodule Aydee Burton APRN Procedures US Breast Right Limited 1-3 Quadrants PUBLIC AID ELIGIBILITY ASSISTANT [address] [place] [address] Referral ID Status Reason Start Date Expiration Date Visits V isits Requested Authorized [id number] Pending 03/08/2022 03/08/2023 1 1 Review Reason for Visit Diagnostic Imaging Ultrasound (Routine) - Pending Review Specialty Diagnoses / Procedures Referred By Contact Refer red To Contact Diagnoses Abnormal CT scan, chest Breast nodule Aydee Burton APRN Procedures US Breast Right Limited 1-3 Quadrants PUBLIC AID ELIGIBILITY ASSISTANT [address] [place] [address] Referral ID Status Reason Start Date Expiration Date Visits V isits Requested Authorized [id number] Pending 03/08/2022 03/08/2023 1 1 Review Encounter Details Date Type Department Care Team Description 03/10/2022 Hospital Encounter [facility] Aydee Burton rmal CT scan, chest; [facility] ELADIO Mendez [facility] PUBLIC AID ELIGIBILITY ASSISTANT [address] [facility] [address] [place] [address], [address] [place] [address] [phone] Social History Tobacco Use Types Packs/Day Years [...] How often do you attend denominational or yazdanism services? 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/2021 7:53 PM COMMERCIAL STRIPPER COVID-19 Exposure Response Date Recorded In the [...] MG CHEW chewable daily tablet fluticasone (FLONASE) [place] 2 sprays into 18.2 mL 0 03/0804/05/2022 [...] - Aydee Burton APRN CNP - 03/10/2022 6:02 PM CDT Needs biopsy. Will discuss in clinic tomorrow. TARA Spivey [facility] documented in this encounter Plan of Treatment Upcoming Encounters Date Type Specialty Care Team Description 09/26/2022 Appointment Speech Therapy Obdulio Barrera MD [address] [facility] [address] [place] [address] Anabel Chew, MANAGER EMPLOYEE RELATIONS [facility] [address] [facility] [address] [place] [address] 09/27/2022 Therapy Visit Physical Therapy Luisana Watkins, PT [address] [place] [address] 09/29/2022 Virtual Visit Pain & Palliative Marilia Deluna, Ronald PhD [address] [facility] [place] [place] [address] 09/30/2022 Office Visit Family Practice Aydee Burton, NUT THREADER PUBLIC AID ELIGIBILITY ASSISTANT [address] [place], [place] [phone] 10/03/2022 Therapy Visit Physical Therapy Una [place], PT [address] [place] [address] 10/10/2022 Hospital Encounter Surgery Lesly Celaya MD [address] [place] [address] 10/10/2022 Office Visit Surgery Lesly Celaya MD [address] [place] [address] Ninoska Flowers, FLORES-C [address] [place] [address] 10/10/2022 Surgery Surgery Lesly Celaya, EXCISION, MASSES - back, abdomen, [address] [place] [address] 10/11/2022 Virtual Visit Clari Su, [facility] [address] [id number] [place], [place] [address] 10/14/2022 Appointment Speech Therapy Anabel Chew, MANAGER EMPLOYEE RELATIONS [facility] [address] [facility] [address] [place] [address] 10/21/2022 Office Visit Pulmonology Obdulio Barrera MD [address] [facility] [address] [place], [place] [phone] 10/25/2022 PRE VISIT Charo Carter MD Previsit [address] [place], [place] [address] 10/25/2022 Office Visit Charo Carter MD [address] [place] [address] 10/25/2022 Office Visit ENT Provider, 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 Manager Zone 10/28/2022 Appointment Speech Therapy Anabel Chew, MANAGER EMPLOYEE RELATIONS [address] [phone] 11/17/2022 Appointment Speech Therapy Anabel Chew, MANAGER EMPLOYEE RELATIONS [address] [address] 12/23/2022 Office Visit Neurology Colby Yeung MD [address] [place], [place] [address] Scheduled Procedures Name Priority Associated Diagnoses Date/Time EXCISION, MASS, TORSO Lipoma of skin and subcuta neous 10/10/2022 7:30 AM COMMERCIAL STRIPPER tissue documented as of this encounter Procedures Procedure Name Priority Date/Time Associated Diagnosis Comme [facility] US BREAST RIGHT Routine 03/10/2022 3:[address] scan, R esults for this LIMITED 1-3 CDT chest procedure are in [employer] Breast nodule the results section. documented in this encounter Results US Breast Right Limited 1-3 Quadrants (03/10/2022 3:38 PM CDT) Anatomical Region Laterality Modality Breast Right Ultrasound Specimen (Source) Anatomical Location Collection Method / [...] the mammographic and CT findings. Aydee Burton NUT THREADER PUBLIC AID ELIGIBILITY ASSISTANT IMG US ORDERABLES documented in this encounter [...] documented as of this encounter Care Teams Slate Handler Relationship Specialty Start Date End Date Aydee Burton, PCP - General Nurse Practitioner - 05/17/21 NUT THREADER PUBLIC AID ELIGIBILITY ASSISTANT Family [address] [place], [place] [phone] Aydee Burton, Assigned PCP 04/28/21 NUT THREADER PUBLIC AID ELIGIBILITY ASSISTANT [address] [place], [place] [phone] Louisa Hood, Assigned Neuroscience 07/11/21 NUT THREADER PUBLIC AID ELIGIBILITY ASSISTANT Provider [address] [place] [address] [id number] Se Levy, Lead Hand Shoe Cutter 08/05/21 05/12/22 GEOSPATIAL ENGINEERClari Ordonez Pharmacist Pharmacist 08/06/21 06/07/22 JORDAN Banks [address] [place] [address] [place], Assigned Sleep 08/01/21 Angel Turcios, Provider [address] [place], [place] [address] Lesly Celaya MD Assigned Surgical 09/05/21 [address] [facility] Provider [place], [place] [phone] [facility] 09/30/21 Worker Ramses Mcpherson Assigned OBGYN 11/07/21 MD Onesimo Provider [address] [place], [place] [phone] Obdulio Barrera MD Critical Care 01/24/[address] [place] [address] Obdulio Barrera, Tone Pulmonology 02/06/[address] [place] [address] [phone] Lesvia Stanley EP Cardiac Rehabilitation 03/03/22 03/03/23 [facility] Therapist [address] [place] [address] Marilia Deluna, PhD Assigned Behavioral 02/20/22 [address] [facility] Provider [place], [place] [phone] Niyah Decker, [facility] Pharmacist Pharmacist 03/07/22 [address] [facility] [address] [place] [address] Clari Poole, Pharmacist Pharmacist 03/07/22 06/15/22 [facility] [address] [facility] [place] [address] Mago Swift, [facility] Lead Hand Shoe Cutter Turkey Roll Maker - 08/05/21 Clinical documented as of this encounter
--- OUTSIDE RECORDS SUMMARY | 2022-09-21 04:07 | XMS_ITS | Encounter Summary ---
:1980 Author Organization [facility] Address [address] [place] [address] Care Team Providers Name Role Phone Aydee Burton SUPERVISOR GROWER KENNEL ATTENDANT Primary Care Provider [phone] Aydee Burton SUPERVISOR GROWER KENNEL ATTENDANT Unavailable [phone] Louisa Hood SUPERVISOR GROWER KENNEL ATTENDANT Unavailable [phone] Se Levy [facility] Unavailable Unavailable Clari Ruiz [facility] Unavailable [phone] Angel Hannah MD Unavailable Lesly Celaya MD Unavailable Tawana Patel MA Unavailable Unavailable Ramses Mcpherson MD Unavailable [phone] Obdulio Barrera MD Unavailable [phone] Obdulio Barrera MD Unavailable [phone] Lesvia Stanley Unavailable Marilia Deluna PhD Unavailable Niyah Decker [facility] Unavailable Clari Poole [facility] Unavailable Mago Swift [facility] Unavailable Reason for Referral Diagnostic Imaging Ultrasound (Routine) - Pending Review Specialty Diagnoses / Procedures Referred By Contact Refer red To Contact Diagnoses Abnormal CT scan, chest Breast nodule Aydee Burton APRN Procedures US Breast Biopsy Core Needle Right KENNEL ATTENDANT [address] [place] [address] Referral ID Status Reason Start Date Expiration Date Visits V isits Requested Authorized [id number] Pending 03/10/2022 03/10/2023 1 1 Review Reason for Visit Diagnostic Imaging Ultrasound (Routine) - Pending Review Specialty Diagnoses / Procedures Referred By Contact Refer red To Contact Diagnoses Abnormal CT scan, chest Breast nodule Aydee Burton APRN Procedures US Breast Biopsy Core Needle Right KENNEL ATTENDANT [address] [place] [address] Referral ID Status Reason Start Date Expiration Date Visits V isits Requested Authorized [id number] Pending 03/10/2022 03/10/2023 1 1 Review Encounter Details Date Type Department Care Team Description 03/15/2022 Hospital Encounter [facility] Aydee Burton rmal CT scan, chest; [facility] EALDIO Mendez [facility] KENNEL ATTENDANT [address] [place] [address], [address] [place] [address] [phone] Social History Tobacco Use Types Packs/Day Years [...] How often do you attend rastafarian or yarsani services? 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 documented as of this encounter Discharge Instructions Discharge InstructionsZaynab Arboleda RN - 03/15/2022 8:36 AM CDT After Your Breast Biopsy Bleeding or bruising Slight bruising is normal. If you bleed through the bandage, put direct pressure on the breast for 10 minutes. If the breast begins to swell, or you have a lot of bleeding after 10 minutes of pressure, call the doctor who ordered your exam. Or, go to the emergency room. Bandages Keep your bandage in place until tomorrow morning. Do not get it wet. If you have small pieces of tape on the skin, leave them in place. They will fall off on their own, or you can remove them after 5 days. Activity You may shower the morning after the exam. No heavy activity (lifting, vacuuming) on the day of yourexam. You may go back to normal activity the next day, unless you had a lot of bleeding or pain. Discomfort You may take Tylenol (acetaminophen) today for pain. Tomorrow, you may take an anti-inflammatory medicine (aspirin, ibuprofen, Motrin, Aleve, Advil), unless your doctor tells you not to. Wear your bra overnight to support the breast. You may also use an ice pack: Place it over the area for 15-20 minutes several times a day. Infection Infection is rare. Symptoms include fever, redness, increasing pain and fluid draining from the biopsy site. If you have any of these symptoms, please call the doctor who ordered your exam. Results Results may take up to 5 business days. A nurse or doctor from the Breast Center will call with yourresults. We will also send the results to the doctor who ordered your biopsy. If you have not heard your results in 5 days, please call the Breast Center. Other instructions Call your doctor if: You have bleeding that lasts more than 10 minutes. You have pain that cannot be controlled. You have signs of infection (fever, redness, drainage or other signs). You have not received your results within 5 days. Please call the Breast Center if you have questions or concerns about your biopsy. For informational purposes only. Not to replace the advice of your health care provider. Copyright ?? 2009 [facility] [employer]. All rights reserved. Clinically reviewed by Lesly Bello RN, BSN, CN-BN. [employer] [id number] - REV 11/01. documented in this encounter Medications at Time [...] persistent cough asthma without complication fluticasone (FLONASE) [employer] 2 sprays into 18.2 mL 0 03/0804/05/2022 [...] Result Encounter Note - Aydee Burton APRN KENNEL ATTENDANT - 03/15/2022 1:44 PM CDT IMPRESSION: Uncomplicated ultrasound guided core needle biopsy of the RIGHT breast. Results pending. Aydee C. Burton, [facility] signed by Aydee Burton APRN CNP at 03/15/2022 1:44 PM CDT Result Encounter Note - Aydee Burton APRN CNP - 03/15/2022 8:00 AM CDT Dear Marta, Here is a summary of your recent test results: Good to see normal pathology on your breast. You certainly deserve some good news. Please call us at [phone] (or use [employer]) to address the above recommendations if needed. Thank you for choosing [facility]. It was an honor and a privilege to participate in your care. Healthy regards, [facility] documented in this encounter Plan of Treatment Upcoming Encounters Date Type Specialty Care Team Description 09/26/2022 Appointment Speech Therapy Obdulio Barrera MD [address] [facility] [address] [place], [place] [address] Anabel Chew, CUSTOMER CARE REPRESENTATIVE [facility] [address] [facility] [address] [place], [place] [address] 09/27/2022 Therapy Visit Physical Therapy Luisana Watkins, PT [address] [place] [address] 09/29/2022 Virtual Visit Pain & Palliative Marilia Deluna, Care PhD [address] [place] [address] 09/30/2022 Office Visit Family Practice Aydee Burton APRN KENNEL ATTENDANT [address] [place] [phone] 10/03/2022 Therapy Visit Physical Therapy Una Reardon, PT [address] [place] [phone] 10/10/2022 Hospital Encounter Surgery Lesly Celaya MD [address] [place], [place] [address] 10/10/2022 Office Visit Surgery Lesly Celaya MD [address] [place], [place] [address] Ninoska Flowers, [place] [address] [place], [place] [address] 10/10/2022 Surgery Surgery Lesly Celaya, EXCISION, MASSES - MD back, abdomen, [address] extremity [place], [place] [phone] 10/11/2022 Virtual Visit Pharm Clari Stoll, [address] [address] 10/14/2022 Appointment Speech Therapy Anabel Chew, CUSTOMER CARE REPRESENTATIVE [place] [address] [facility] [place] [address] [place], [place] [address] 10/21/2022 Office Visit Pulmonology Obdulio Barrera MD [address] [facility] [address] [place], [place] [address] 10/25/2022 PRE VISIT ENT Charo Burton MD Previsit [address] [place], [place] [phone] 10/25/2022 Office Visit Charo Carter MD [address] [place], [place] [address] 10/25/2022 Office Visit ENT Provider, 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 Intermodal Truck Driver 10/28/2022 Appointment Speech Therapy Anabel Chew CUSTOMER CARE REPRESENTATIVE [address] [place] [address] 11/17/2022 Appointment Speech Therapy Anabel Chew SLP [address] [address] 12/23/2022 Office Visit Neurology Colby Yeung MD [address] [place], [place] [address] Scheduled Procedures Name Priority Associated Diagnoses Date/Time EXCISION, MASS, TORSO Lipoma of skin and subcuta neous 10/10/2022 7:30 AM SHOTGUN SHELL ASSEMBLY MACHINE OPERATOR tissue documented as of this encounter Procedures Procedure Name Priority Date/Time Associated Diagnosis Comme nts US BREAST BIOPSY Routine 03/15/2022 8:[address] scan, Results for this CORE NEEDLE RIGHT CDT chest procedure are in Breast nodule the results section. SURGICAL PATHOLOGY Routine 03/15/2022 8:[address] scan , Results for this EXAM CDT chest procedure are in Breast nodule the results section. documented in this encounter Results US Breast Biopsy Core Needle Right (03/15/2022 8:32 AM CDT) Anatomical Region Laterality Modality Breast [...] patient. Post biopsy mammogram demonstrates clip deployment. Aydee Burton APRN KENNEL ATTENDANT [facility] ORDERABLES Surgical Pathology Exam (03/15/2022 8:22 AM CDT) Component Value Ref Test Analysis Performed At [facility] Method Time Signature Case Report Surgical Pathology Report ? Case: [id number] ? 03/16/2022 Authorizing Provider: ??Erick varma, Aydee Mendez, ? Collected: ? 03/15/2022 08:22 AM ? 2:38 PM LABORATOR Y ? ELADIO KENNEL ATTENDANT ? CDT Ordering Location: ? [facility] ?Received: ?03/15/2022 10:50 AM ? [facility] ? Pathologist: ? Alea Chong MD ? Specimen: ?Breast, Right ? Final Right breast, 1.1 cm mass, 1 :00, 6 cm from nipple, ultrasound guided needoe core biopsies: 03/16/2022 Electr onically Diagnosis - Fibroadenoma and normal breast tissue. 2:38 PM LABORATORY signed by - Negative for atypia and malignancy. CD T Alea Chong MD on 2021 at 2:38 PM Comment Intradepartmental 03/16/2022 consultation 2:38 PM LABORATORY concurs with the CDT diagnosis. Clinical 42 year old female. 03/16/2022 Information Targeted ultrasound 2:38 PM LABORATO RY of upper inner CDT quadrant of right breast shows a 1.1 x 0.6 x 1.1 cm oval mass at 1:00, 6 cm from nipple. Gross A(1). Breast, Right, : 03/16/2022 Description The specimen is received in formalin labeled with the patient's name, medical record number, and other identifying information and designated right breast ultrasound core biopsy, 1:00, 6.0 cm from nipp 2:38 PM LABORATORY le, 1.1 cm size. It consist s of 3 yellow-bennett fibrofatty breast cores, ranging from 1.7-2.2 cm in length and averaging 0.2 cm in diameter. The specimen is wrapped and entirely submitted in one cassette. CDT Time collected: 821 Time in formalin: 0828 Microscopic Microscopic examination is performed. 03/16/2022 Description 2:38 PM LABORATORY CDT Performing The technical 03/16/2022 Labs component of this 2:38 PM LABORATORY testing was CDT completed at [facility] Laboratory Case Images 03/16/2022 2:38 PM LABORATORY CDT Specimen Anatomical Collection Method Collection Time Receive d Time (Source) Location / / Volume Laterality Biopsy RIGHT BREAST 03/15/2022 8:22 AM 2 STRUCTURE / CDT 10:50 AM CDT Unknown Comment: Right breast ultrasound core bi opsy, 1:00, 6.0 cm from nipple, 1.1 cm size. Low suspicion. Possible fibroadenoma or hamartoma Performed by Dr. Jerel Dan. Aydee Burton APRN, CNP LAB - [facility] Performing Organization Address City/State/ZIP Code [place] [address] [phone] Care [facility] [address] 1st floor, Room 20B documented in this encounter Visit Diagnoses Diagnosis [...] MAR Action Action Date Dose Rate Site lidocaine 1 % 5 mL Given 03/15/2022 8:21 AM CDT 5 mLs 5 mL, Intradermal, ONCE, On Mon03/15/22 at 0830, For 1 dose documented in this encounter Additional Health Concerns Assessment Noted Time PHQ-9 Depression Total Score: 20 03/02/2022 7:02 AM CD T documented as of this encounter Care Teams Supervisory Geographer Relationship Specialty Start Date End Date Aydee Burton, PCP - General Nurse Practitioner - 05/17/21 ELADIO KOO [facility] [address] [place] [address] Aydee Burton, Assigned PCP 04/28/21 SUPERVISOR GROWER KENNEL ATTENDANT [address] [place], [place] [address] Louisa Hood, Assigned Neuroscience 07/11/21 SUPERVISOR GROWER KENNEL ATTENDANT Provider [address] [place], [place] [address] Se Levy, Lead Soil Fertility Extension Specialist 08/05/21 05/12/22 CORPORATE EXECUTIVEClari Ordonez Pharmacist Pharmacist 08/06/21 06/07/[address] [facility] [address] [place], [place] [address] [place], Assigned Sleep 08/01/21 Angel Turcios, Provider [address] [place], [place] [phone] Lesly Celaya MD Assigned Surgical 09/05/21 [address] [facility] Provider [place], [place] [address] [facility] 09/30/21 Worker aRmses Mcpherson Assigned OBGYN 11/07/21 MD Onesimo Provider [address] [place], [place] [address] Obdulio Barrera MD Critical Care 01/24/[address] [place] [address] Obdulio Barrera, Assigned Pulmonology 02/06/[address] [phone] Lesvia Stanley EP Cardiac Rehabilitation 03/03/22 03/03/23 [facility] Therapist [address] [place] [address] Marilia Deluna, PhD Assigned Behavioral 02/20/22 [address] [facility] [place] [address] Niyah Decker, [facility] Pharmacist Pharmacist 03/07/22 [address] [facility] [address] [place], [place] [address] Clari Poole, Pharmacist Pharmacist 03/07/22 06/15/22 [facility] [address] [place] [phone] Mago Swift, [facility] Lead Soil Fertility Extension Specialist Cereal Maker - 08/05/21 Clinical documented as of this encounter
--- OUTSIDE RECORDS SUMMARY | 2022-09-21 04:07 | XMS_ITS | Encounter Summary ---
:1980 Author Organization [facility] Address [address] [place] [address] Care Team Providers Name Role Phone Aydee Burton THREADER OPERATOR DROP BOARD MAN Primary Care Provider [phone] Aydee Burton THREADER OPERATOR DROP BOARD MAN Unavailable [phone] Louisa Hood THREADER OPERATOR DROP BOARD MAN Unavailable [phone] Se Levy [facility] Unavailable Unavailable Clair Ruiz [facility] Unavailable Angel Hannah MD Unavailable Lesly Celaya MD Unavailable Tawana Patel MA Unavailable Unavailable Ramses Mcpherson MD Unavailable [phone] Obdulio Barrera MD Unavailable [phone] Obdulio Barrera MD Unavailable [phone] Lesvia Stanley Unavailable Marilia Deluna PhD Unavailable Niyah Decker [facility] Unavailable Clari Poole [facility] Unavailable Mago Swift [facility] Unavailable Encounter Details Date Type Department Care Team Description 03/11/2022 Travel Social History Tobacco Use Types Packs/Day [...] How often do you attend latter-day or episcopal services? Never 08/05/2021 Do you [...] at Date Recorded Female 11/09/2021 7:53 PM SKIP HOIST OPERATOR COVID-19 Exposure Response Date Recorded In the last 10 days, have you been in contact with No / Unsu re 03/11/2022 2:13 PM CDT someone who was confirmed or suspected to have Coronavirus/COVID-19? documented as of this encounter Plan of Treatment Upcoming Encounters Date Type Specialty Care Team Description 09/26/2022 Appointment Speech Therapy Obdulio Barrera MD [address] [place] [address] Anabel Chew, FAMILY COUNSELOR [facility] [address] [facility] [address] [place], [place] [address] 09/27/2022 Therapy Visit Physical Therapy Luisana Watkins, PT [address] [place] [address] 09/29/2022 Virtual Visit Pain & Palliative Marilia Deluna, [facility] PhD [address] [place] [address] 09/30/2022 Office Visit Family Practice Aydee Burton, THREADER OPERATOR DROP BOARD MAN [address] [place] [address] 10/03/2022 Therapy Visit Physical Therapy Una Reardon, PT [address] [place] [address] 10/10/2022 Hospital Encounter Surgery Lesly Celaya MD [address] [place] [address] 10/10/2022 Office Visit Surgery Lesly Celaya MD [address] [place] [address] Ninoska Flowers PA-C [address] [place] [address] 10/10/2022 Surgery Surgery Lesly Celaya, EXCISION, MASSES - MD back, abdomen, [address] right lower [facility] [place] [address] 10/11/2022 Virtual Visit Clari Su, [place] [phone] [address] [address] 10/14/2022 Appointment Speech Therapy Anabel Chew, FAMILY COUNSELOR [address] [address] 10/21/2022 Office Visit Pulmonology Obdulio Barrera MD [address] [address] 10/25/2022 PRE VISIT ENT Charo Burton MD Previsit [address] [place] [address] 10/25/2022 Office Visit ENT Charo Burton MD [address] [place], [place] [address] 10/25/2022 Office Visit ENT Provider, 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 Senior Enlisted Advisor 10/28/2022 Appointment Speech Therapy Anabel Chew, FAMILY COUNSELOR [address] [address] 11/17/2022 Appointment Speech Therapy Anabel Chew, FAMILY COUNSELOR [address] 3628[address] 12/23/2022 Office Visit Neurology Colby Yeung MD [address] [place] [address] Scheduled Procedures Name Priority Associated Diagnoses Date/Time EXCISION, MASS, TORSO Lipoma of skin and subcuta neous 10/10/2022 7:30 AM SKIP HOIST OPERATOR tissue documented as of this encounter Visit Diagnoses Not on filedocumented in this encounter Additional Health Concerns Assessment Noted Time PHQ-9 Depression Total Score: 20 03/02/2022 7:02 AM CD T documented as of this encounter Care Teams Operator Relationship Specialty Start Date End Date Aydee Burton, PCP - General Nurse Practitioner - 05/17/21 THREADER OPERATOR DROP BOARD MAN Family [address] [place], [place] [phone] Aydee Burton, Assigned PCP 04/28/21 THREADER OPERATOR DROP BOARD MAN [address] [place], [place] [phone] Louisa Hood, Assigned Neuroscience 07/11/21 THREADER OPERATOR DROP BOARD MAN Provider [address] [place] [address] Se Levy, Lead Block Stacker 08/05/21 05/12/22 Clair Francois Pharmacist Pharmacist 08/06/21 06/07/22 [facility] [address] [place], [place] [phone] [place], Assigned Sleep 08/01/21 Angel Turcios, Provider [address] [place], [place] [address] Lesly Celaya MD Assigned Surgical 09/05/21 [address] Provider [place], [place] [phone] Tawana Patel MA [facility] 09/30/21 Worker Ramses Mcpherson Assigned OBGYN 11/07/21 MD Onesimo Provider [address] [place] [address] Obdulio Barrera MD Critical Care 01/24/[address] [place] [address] Obdulio Barrera, Assigned Pulmonology 02/06/[address] [address]99[address] Lesvia Stanley EP Cardiac Rehabilitation 03/03/22 03/03/23 [facility] Therapist [address] [place] [address] Marilia Deluna, PhD Assigned Behavioral 02/20/22 [address] [facility] Health Provider [place], [place] [address] Niyah Decker, [facility] Pharmacist Pharmacist 03/07/22 [address] [facility] [address] [place], [place] [address] Clari Poole, Pharmacist Pharmacist 03/07/22 06/15/22 [facility] [address] [facility] [address] [place] [phone] Mago Swift, [facility] Lead Block Stacker [employer] Senior Sergeant - 08/05/21 Clinical documented as of this encounter
--- OUTSIDE RECORDS SUMMARY | 2022-09-21 04:08 | XMS_ITS | Encounter Summary ---
:1980 Author Organization [place] Address [address] [place] [address] Care Team Providers Name Role Phone Aydee Burton REPROGRAPHICS ASSOCIATE EDUCATION AND TRAINING MANAGER Primary Care Provider [phone] Aydee Burton REPROGRAPHICS ASSOCIATE EDUCATION AND TRAINING MANAGER Unavailable [phone] Louisa Hood REPROGRAPHICS ASSOCIATE EDUCATION AND TRAINING MANAGER Unavailable [phone] Se Levy [facility] Unavailable Unavailable Clari Ruiz [facility] Unavailable Angel Hannah MD Unavailable Lesly Celaya MD Unavailable Tawana Patel MA Unavailable Unavailable Ramses Mcpherson MD Unavailable [phone] Obdulio Barrera MD Unavailable [phone] Obdulio Barrera MD Unavailable [phone] Lesvia Stanley Unavailable Marilia Deluna PhD Unavailable Niyah Decker [facility] Unavailable Clari Poole [facility] Unavailable Mago Swift [facility] Unavailable Encounter Details Date Type Department Care Team Description 03/08/2022 Virtual Visit [facility] Marilia Deluna Bil ateral occipital neuralgia (Primary Dx); Pain Management PhD Upper back pain; [facility] [id number] [place] [address] Chronic tension-type headache, not intra ctable [address] [place], [place] [address] [address] [place] [address] Social History Tobacco Use Types [...] er 08/05/2021 How often do you attend temple or restorationist services? 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 documented as of this encounter Progress Notes Marilia Deluna - 03/08/2022 11:00 AM CDT Marta Hill is a 42 [...] invitation sent by: Text to cell phone: .[phone]} Video Start Time: 11:00 AM Additional provider notes: Pain Diagnoses per pain provider: Bilateral occipital neuralgia ?? Upper back pain ?? Chronic tension-type headache, not intractable DATA: During today's visit you reported the following: Your pain is still fairly high - not feeling there is much that relieves pain. Your mood is 'fine - I'm more cranky and angry'. Your activity level is more stable - actively working on breaking tasks into small chunks of time, then taking breaks. Your stress level is mildly increased - trying to decide about return to work while accepting realityof current health situation. Your sleep is still disrupted by pain. You reported engaging in self-care for your pain 1-2 times daily. You identified that you would like to focus on the following or had questions regarding the following issues or concerns, and we discussed the following: - oriented to follow up and update from most recent visit with Lucas Anaya DO - visit with Pharmacist to review current medications - referred to financial reporting advisor and wants to discuss medications with psychiatrist - explored strategies you are using to manage anger - encouraged to discuss irritability with psychiatrist to see if this might be attributable to increase in Seroquel - radical acceptance - window of tolerance - psychoeducation on sympathetic nervous system response to pain - discussed using ice or cold water on pulse points ASSESSMENT: Oriented to follow up. Seems to be working on incorporating more balanced activity and pacing herself. PLAN: Your next appointment is scheduled for 04/07 at 11:00 AM. Assignment/Objectives /interventions for next session: - continue to pace activity - continue to engage in daily self-care - try using ice or cold water on pulse points when emotions are intensifying We believe regular attendance is miranda to your success in our program! ?? Any time you are unable to keep your appointment we ask that you call us at [phone] at least24 hours in advance to cancel.This will allow us to offer the appointment time to another patient. ?? Multiple missed appointments may lead to dismissal from the clinic. Video-Visit Details Type of service: Video Visit Video End Time (time video stopped): 11:48 AM Originating Location (pt. Location): Home Distant Location (provider location): [facility] Mode of Communication: Video Conference via [employer] Marilia Deluna PsyD LP Licensed Psychologist Outpatient Clinic Therapist [facility] Pain Management documented in this encounter Plan of Treatment Upcoming Encounters Date Type Specialty Care Team Description 09/26/2022 Appointment Speech Therapy Obdulio Barrera MD [address] [facility] [address] [place], [place] [address] Anabel Chew, PAPER [facility] [address] [facility] [address] [place], [place] [address] 09/27/2022 Therapy Visit Physical Therapy Luisana Watkins, PT [address] [place] [address] 09/29/2022 Virtual Visit Pain & Palliative Mariila Deluna, Care PhD [address] [place], [place] [address] 09/30/2022 Office Visit Family Practice Aydee Burton, REPROGRAPHICS ASSOCIATE EDUCATION AND TRAINING MANAGER [address] [place], [place] [address] 10/03/2022 Therapy Visit Physical Therapy David-Una Tang, PT [address] [place] [phone] 10/10/2022 Hospital Encounter Surgery Lesly Celaya MD [address] [place], [place] [phone] 10/10/2022 Office Visit Surgery Lesly Celaya MD [address] [place] [address] Ninoska Flowers, FLORES-Ynes [address] [place] [address] 10/10/2022 Surgery Surgery Lesly Celaya, EXCISION, MASSES - back, abdomen, [address] [place] [address] 10/11/2022 Virtual Visit Clari Su, [facility] [address] [id number] [place], [place] [address] 10/14/2022 Appointment Speech Therapy Anabel Chew, PAPER [facility] [address] [facility] [address] [place], [place] [address] 10/21/2022 Office Visit Pulmonology Obdulio Barrera MD [address] [facility] [address] [place] [address] 10/25/2022 PRE VISIT ENT Charo Burton MD Previsit [address] [place], [place] [phone] 10/25/2022 Office Visit ENT Charo Burton MD [address] [place], [place] [address] 10/25/2022 Office Visit ENT Provider, Jeannette 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 Contact Center Team Lead 10/28/2022 Appointment Speech Therapy Anabel Chew, PAPER [facility] GR[facility] [address] [address] 11/17/2022 Appointment Speech Therapy Anabel Chew, PAPER [facility] GR[facility] [address] [address] 12/23/2022 Office Visit Neurology Colby Yeung MD [address] [id number] Scheduled Procedures Name Priority Associated Diagnoses Date/Time EXCISION, MASS, TORSO Lipoma of skin and subcuta neous 10/10/2022 7:30 AM FLANGING MACHINE OPERATOR tissue documented as of this encounter Procedures Procedure Name Priority Date/Time Associated Diagnosis Comme nts [facility] Routine 03/08/2022 11:57 AM Bilateral occip ital INTERVENTION, CDT neuralgia INDIVIDUAL, INITIAL 30 Upper krystal k [...] documented as of this encounter Care Teams Abalone Diver Relationship Specialty Start Date End Date Aydee Burton, PCP - General Nurse Practitioner - 05/17/21 REPROGRAPHICS ASSOCIATE EDUCATION AND TRAINING MANAGER Family [address] [place] [address] Aydee Burton, Assigned PCP 04/28/21 REPROGRAPHICS ASSOCIATE EDUCATION AND TRAINING MANAGER [address] [place], [place] [phone] Louisa Hood, Assigned Neuroscience 07/11/21 REPROGRAPHICS ASSOCIATE EDUCATION AND TRAINING MANAGER Provider [address] [place], [place] [phone] Se Levy, Lead Tennis Professional 08/05/21 05/12/22 [facility] Clari Ruiz Pharmacist Pharmacist 08/06/21 06/07/22 [facility] [address] [place] [address] [place], Assigned Sleep 08/01/21 Angel Turcios, Provider [address] [place] [address] Lesly Celaya MD Assigned Surgical 09/05/21 [address] Provider [place], [place] [phone] Tawana PatelFormerly [facility] 09/30/21 Worker Ramses Mcpherson Assigned OBGYN 11/07/21 MD Onesimo Provider [address] [place] [address] Obdulio Barrera MD Critical Care 01/24/22 [address] [facility] [address] [place], [place] [address] Obdulio Barrera, Assigned Pulmonology 02/06/22 Provider [address] [facility] [address] [place], [place] [phone] Lesvia Stanley EP Cardiac Rehabilitation 03/03/22 03/03/23 [facility] Therapist [address] [place] [address] Marilia Deluna, PhD Assigned Behavioral 02/20/22 [address] [facility] Health Provider [place] [address] Niyah Decker, [facility] Pharmacist Pharmacist 03/07/22 420 [facility] [address] [place], [place] [address] Clari Poole, Pharmacist Pharmacist 03/07/22 06/15/22 [facility] [address] [facility] [address] [place] [address] Mago Swift, [facility] Lead Tennis Professional R&D Engineer - 08/05/21 Clinical documented as of this encounter
--- OUTSIDE RECORDS SUMMARY | 2022-09-21 04:08 | XMS_ITS | Encounter Summary ---
:1980 Author Organization [place] Address [address] [place] [address] Care Team Providers Name Role Phone Aydee Nam MAP MOUNTER LOG LOADER Primary Care Provider [phone] Aydee Nam MAP MOUNTER LOG LOADER Unavailable [phone] Louisa Hood MAP MOUNTER LOG LOADER Unavailable [phone] Se Levy [facility] Unavailable Unavailable Clari Ruiz [facility] Unavailable Angel Hannah MD Unavailable Lesly Celaya MD Unavailable Tawana Patel MA Unavailable Unavailable Ramses Mcpherson MD Unavailable [phone] Obdulio Barrera MD Unavailable [phone] Obdulio Barrera MD Unavailable [phone] Lesvia Stanley Unavailable Marilia Deluna PhD Unavailable Niyah Decker [facility] Unavailable Clari Poole [facility] Unavailable Mago Swift [facility] Unavailable Reason for Referral Diagnostic Imaging Ultrasound (Routine) - Pending Review Specialty Diagnoses / Procedures Referred By Contact Refer red To Contact Diagnoses Abnormal CT scan, chest Breast nodule Aydee Nam APRN Procedures US Breast Right Limited 1-3 Quadrants LOG LOADER [address] [place] [address] Referral ID Status Reason Start Date Expiration Date Visits V isits Requested Authorized [id number] Pending 03/08/2022 03/08/2023 1 1 Review Diagnostic Imaging Mammo (Routine) - Pending Review Specialty Diagnoses / Procedures Referred By Contact Refer red To Contact Diagnoses Abnormal CT scan, chest Breast nodule Aydee Nam APRN Procedures MA Diagnostic with Implants Bilateral w/Matias LOG LOADER [address] [place] [address] Referral ID Status Reason Start Date Expiration Date Visits V isits Requested Authorized [id number] Pending 03/08/2022 03/08/2023 1 1 Review Reason for Visit Reason Onset Date Comments Appointment 03/08/2022 SWOLLEN ANKLES AND B RUISING Encounter Details Date Type Department Care Team Description [facility] [place] ELADIO Mendez CNP ANKLES AND BRUISING) [address] [place] [address] [place] [address] [place], [place] [phone] (Wo rk) [phone] [phone] Social History Tobacco Use Types Packs/Day Years [...] How often do you attend pentecostal or congregational services? 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 documented as of this encounter Miscellaneous Notes Telephone Encounter - Abril Castaneda RN - 03/10/2022 5:04 PM CDT Left detailed message for patient. Stated if any worsening chest pain or sob at rest to be seen in ER. Abril Castaneda RN [facility] Telephone Encounter - Aydee Nam APRN CNP - 03/10/2022 12:11 PM CDT Images from the original note were not included. Will see her tomorrow in clinic unless she feels worsening red flags symptoms go to Ed. Aydee Nam, CASINO RUNNER-BC Telephone Encounter - Carolyn Alejandro RN - 03/09/2022 2:26 PM CDT Called # Telephone Information: Advised pt on the information below Pt stated that the chest pain (tightness in the chest) is worse today because she was walking in the[employer] store - she feels SOB the inhaler is not working for her ( albuterol) - she gets SOB very easily - when she moves around a tiny bit or cough she is SOB - pts mouth is very dry too. Coughing is non productive Carolyn Alejandro RN, BSN [place] Triage Telephone Encounter - Jasson Neal RN - 03/08/2022 5:55 PM CDT Attempt # 1 Called # [phone] Left a non detailed VM to call back at and ask for any available Triage Nurse. Jasson Neal RN [facility] [place] Triage Telephone Encounter - Aydee Nam APRN CNP - 03/08/2022 5:43 PM CDT Images from the original note were not included. Please call patient's I see on her CT scan at the [facility] today she has broken ribs; also has a possiblenodule in her right breast. I have ordered a urgent diagnostic mammogram and ultrasound of the rightbreast. They should be calling her to set this up soon as possible. She is welcome to keep her appointment with me on Monday to see how things are going. IMPRESSION: 1. No acute abnormality in the chest. No evidence for pulmonary embolism. 2. Subacute mildly displaced fractures of the left fourth and fifth ribs anterolaterally and of the right fifth rib anteriorly. 3. Indeterminate 1 cm nodule in the right breast superiorly and medially. Breast malignancy cannot be excluded. Clinical and mammographic correlation is recommended. MARINO Spivey Telephone Encounter - Aydee Nam APRN CNP - 03/08/2022 12:56 PM CDT Images from the original note were not included. Lory Nunez can do virtual and get her to ADS. Would like stat doppler of legs and some lab. ? MARINO Spivey ?? Telephone Encounter - Carolyn Alejandro RN - 03/08/2022 12:56 PM CDT Message handled by Nurse Triage with [facility] - provider name: AL,SENIOR ANALYST DEVELOPER - pt shoudl be seen sooner to r/oblkristin eckert LP,PA-c stated she could see pt virtually at 120 pm . Called # Telephone Information: Advised pt on the information below Patient stated an understanding and agreed with plan. Carolyn Alejandro RN, BSN [place] Triage Telephone Encounter - Carolyn Alejandro RN - 03/08/2022 12:03 PM CDT Pt calling She stated the ankles just started swelling when she is standing since (03/03/2022) Socks do leave a arjun around the ankle for awhile. The swelling is mainly in the ankle and ankle bones Has some sharp shooting pain on the top part of thigh at times. The tops of feet feel tingly - constant When she puts her feet up she is able to keep the swelling down. Has a slight ache in her head. Does not eat a lot of salt and has been drinking a lot of water. Pt is still working through her asthma - she has SOB and chest tightness of this - she is also coughing but this has been about the same since dec 2021 Denies: recent trauma, no worsening CP or SOB, pain when swollen with walking, blurred vision, new nausea or vomiting. Diet changing Reviewed with pt to elevate legs, reduce salt intake and stay well hydrated Routing to PCP for review Carolyn Alejandro RN, BSN [facility] [place] Triage Telephone Encounter - Ziyad Frausto - 03/08/2022 12:00 PM CDT Appointment scheduled for 03/11/22 to see Aydee Nam, transferred to triage team to see if there's anything patient should be doing in the meantime prior to appointment. Ziyad Frausto Ranch Supervisor Telephone Encounter - Aydee Nam APRN CNP - 03/08/2022 12:00 PM CDT Images from the original note were not included. Triage please triage patient and let me know if she needs urgent Doppler of her right leg which I can order. Otherwise set her up with next available appointment or she can go to urgent care today. TARA Spivey- Telephone Encounter - Nilo Kearns MA - 03/08/2022 11:53 AM CDT Reason for Call: Other appointment and call back Detailed comments: MARTA HAWKINS CALLED TO REQUEST SOONER APPOINTMENT AND REPORT BOTH ANKLES ARE SWOLLEN SINCE LAST WEEK RIGHT LEG HAS VEINS AND BRUISING SHE WOULD LIKE TO KNOW WHAT TO DO , NO APPOINTMENT AVAILABLE UNTIL NEXT WEEK Monday03/14/2022 Phone Number Patient can be reached at: Cell number on file: Telephone Information: Best Time: ANYTIME Can we leave a detailed message on this number? YES Call taken on 03/08/2022 at 11:53 AM by Nilo Kearns MA Addendum Note - Aydee Nam APRN CNP - 03/08/2022 11:52 AM CDT Addended by: AYDEE NAM on: 03/08/2022 05:48 PM Modules accepted: Orders documented in this encounter Plan of Treatment Upcoming Encounters Date Type Specialty Care Team Description 09/26/2022 Appointment Speech Therapy Obdulio Barrera MD [address] [facility] 276 [place], [place] [address] Anabel Chew, INSTITUTION LIBRARIAN [facility] [address] [facility] [address] [place], [place] [address] 09/27/2022 Therapy Visit Physical Therapy Luisana Watkins, PT [address] [place] [address] 09/29/2022 Virtual Visit [facility] [address] [place] [address] 09/30/2022 Office Visit Family Practice Aydee Nam APRN LOG LOADER [address] [place] [address] 10/03/2022 Therapy Visit Physical Therapy Una Reardon, PT [address] [place] [phone] 10/10/2022 Hospital Encounter Surgery Lesly Celaya MD [address] [place] [address] 10/10/2022 Office Visit Surgery Lesly Celaya MD [address] [place], [place] [address] Ninoska Flowers PA-C [address] [place], [place] [address] 10/10/2022 Surgery Surgery Lesly Celaya, EXCISION, MASSES - MD back, abdomen, [address] extremity [place], [place] [phone] 10/11/2022 Virtual Visit Pharm Clari Stoll, [place] [id number] [address] [address] 10/14/2022 Appointment Speech Therapy Anabel Chew, INSTITUTION LIBRARIAN [address] [address] 10/21/2022 Office Visit Pulmonology Obdulio Barrera MD [address] [facility] 276 [place], [place] [address] 10/25/2022 PRE VISIT ENT Charo Burton MD Previsit [address] [place] [address] 10/25/2022 Office Visit Charo Carter MD [address] [place] [address] 10/25/2022 Office Visit ENT Provider, Jeannette 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 Extension Course Coordinator 10/28/2022 Appointment Speech Therapy Anabel Chew, INSTITUTION LIBRARIAN [address] [address] 11/17/2022 Appointment Speech Therapy Anabel Chew, INSTITUTION LIBRARIAN [address] [facility] [address] [place] [address] 12/23/2022 Office Visit Neurology Colby Yeung MD [address] [address] Scheduled Procedures Name Priority Associated Diagnoses Date/Time EXCISION, MASS, TORSO Lipoma of skin and subcuta neous 10/10/2022 7:30 AM MOISTURE MACHINE TENDER tissue documented as of this encounter Results US Breast Right Limited [...] for the mammographic and CT findings. Aydee Nam APRN LOG LOADER IMG US ORDERABLES MA Diagnostic with Implants Bilateral w/Matias (03/10/2022 [...] for the mammographic and CT findings. Aydee Nam APRN, CNP [facility] MAMMOGRAPHY ORDERABL ES documented in this encounter Visit Diagnoses Diagnosis Abnormal CT scan, chest - Primary Nonspecific (abnormal) findings on radio logical and other examination of other intrathoracic organs Breast nodule Other (abnormal) findings on radiologica l examination of breast Abnormal CT scan, chest Nonspecific (abnormal) findings on radio logical and other examination of other intrathoracic organs Breast nodule Other (abnormal) findings on radiologica l examination of breast Abnormal CT scan, chest Nonspecific (abnormal) findings [...] documented as of this encounter Care Teams Tax Services Manager Relationship Specialty Start Date End Date Aydee Nam, PCP - General Nurse Practitioner - 05/17/21 MAP MOUNTER LOG LOADER Family [address] [place] [address] Aydee Nam, Assigned PCP 04/28/21 MAP MOUNTER LOG LOADER [address] [place], [place] [phone] Louisa Hood, Assigned Neuroscience 07/11/21 MAP MOUNTER LOG LOADER Provider [address] [place], [place] [phone] Se Levy, Lead Skirt Clipper 08/05/21 05/12/22 Clari Francois Pharmacist Pharmacist 08/06/21 06/07/22 Jocelyn, [facility] [address] [place], [place] [phone] [place], Assigned Sleep 08/01/21 Angel Turcios Provider [address] [place], [place] [phone] Lesly Celaya MD Assigned Surgical 09/05/21 [address] Provider [place], [place] [phone] Tawana Patel MA [facility] 09/30/21 Worker Ramses Mcpherson Assigned OBGYN 11/07/21 MD Onesimo Provider [address] [place] [address] Obdulio Barrera MD Critical Care 01/24/[address] [place] [address] 276 [place] [address] Obdulio Barrera, Assigned Pulmonology 02/06/22 MD Provider [address] [place] [address] 276 [place], [place] [address] Lesvia Stanley, GHADA Cardiac Rehabilitation 03/03/22 03/03/23 [facility] Therapist [address] [place] [address] Marilia Deluna, PhD Assigned Behavioral 02/20/22 [address] [facility] [place] [place] [address] Niyah Decker, [facility] Pharmacist Pharmacist 03/07/22 420 [facility] 8[address] [place] [address] Clari Poole, Pharmacist Pharmacist 03/07/22 06/15/22 [facility] [address] [facility] [place] [address] Mago Swift, [facility] Lead Skirt Clipper Band Sawmill Operator - 08/05/21 Clinical documented as of this encounter
--- OUTSIDE RECORDS SUMMARY | 2022-09-21 04:08 | XMS_ITS | Encounter Summary ---
:1980 Author Organization [facility] Address [address] [place] [address] Care Team Providers Name Role Phone Aydee Burton PAD MAKING MACHINE OPERATOR BEER COIL CLEANER Primary Care Provider [phone] Aydee Burton PAD MAKING MACHINE OPERATOR BEER COIL CLEANER Unavailable [phone] Louisa Hood PAD MAKING MACHINE OPERATOR BEER COIL CLEANER Unavailable [phone] Se Levy [facility] Unavailable Unavailable Clari Ruiz [facility] Unavailable [phone] Angel Hannah MD Unavailable Lesly Celaya MD Unavailable Tawana Patel MA Unavailable Unavailable Ramses Mcpherson MD Unavailable [phone] Obdulio Barrera MD Unavailable [phone] Obdulio Barrera MD Unavailable [phone] Lesvia Stanley Unavailable Marilia Deluna PhD Unavailable Niyah Decker [facility] Unavailable Clari Poole [facility] Unavailable Mago Swift [facility] Unavailable Reason for Referral Consultation (Routine) - Closed Specialty Diagnoses / Procedures Referred By Contact Refer red To Contact Diagnoses SOB (shortness of breath) Leg swelling Discoloration of skin of multiple sites of lower extremity Lory Nunez PA-C [address] [address] [place] [address] Phone: Referral ID Status Reason Start Date Expiration Date Visits Requ ested Visits Authorized [id number] Closed 03/08/2022 03/08/2023 1 1 Reason for Visit Reason Comments Leg Swelling Encounter Details Date Type Department Care Team Description 03/08/2022 Virtual Visit [facility] Lory Nunez SOB (ayana rtness of breath) (Primary Dx); [facility] PA-[facility] Leg swelling; [address] [place] [address] [place] [address] Discol oration of skin of multiple sites of lower extremity; [place] Severe episode of recurrent major depres sive disorder, without psychotic features (H) [place] [address] [phone] (Wo rk) Social History Tobacco Use Types [...] How often do you attend holiness or druze services? 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 documented as of this encounter Progress Notes Lory Nunez PA-C - 03/08/2022 1:20 PM CDT Marta is a 42 year old who is being evaluated via a billable video visit. How would you like to obtain your AVS? MyChart If the video visit is dropped, the invitation should be resent by: [phone] Will anyone else be joining your video visit? No Video Start Time: 1:24 PM Assessment & Plan SOB (shortness of breath) Leg swelling Discoloration of skin of multiple sites of lower extremity Unclear etiology, broad differential. Could be concerns of deep vein thrombosis versus cardiac etiology, called to acute diagnostic service Center and Dr. Mcintyre graciously accepted patient for evaluation. Patient will proceed there immediately. - Referral to Acute and Diagnostic Services (Day of diagnostic / First order acute) Return today (on 03/08/2022) for ADS. Lory Nunez PA-C [facility] Marta is a 42 year old who presents for the following health issues HPI ?? Patient reports ankle swelling that started 03/03/2022. There is some pitting that she describes as a slight delay in resolution but does last for split-second. If she has tight socks on they do leave a arjun around her ankle for a while. No significant pain in her legs but that the tops of her feet feel tingly . Elevating her legs decreases the swelling. Denies significant salt intake and drinks plenty of water. She noticed yesterday that she had some violaceous coloring to her bilateral lower legs. She states that she always has had easy bruising but this is new. She denies any pain in the areas that are discolored. ?? Pt is still working through her asthma - she has SOB and chest tightness of this - she is also coughing but this has been about the same since dec 2021. Currently on Symbicort 2 puffs twice daily, Spiriva 1 capsule inhaled daily, DuoNeb typically twice daily. Patient had pulmonary function testing on that was normal but comment of erratic effort from the patient making it impossible to evaluate the flow volume loops. CT of the chest was completed for a PE rule out 01/14/2022 that showed mildair trapping and fibroatelectasis without effusion or definitive infiltrate. Additionally, she had an echocardiogram that was essentially normal completed on 01/31/2022. ?? Denies: recent trauma, no worsening CP or SOB, pain when swollen with walking, blurred vision, new nausea or vomiting. Diet changing ?? Patient reports that she did have a dose change in her quetiapine in the recent past but this is theonly change in her chronic daily medications. ?? Review of Systems Constitutional, HEENT, cardiovascular, pulmonary, GI, , musculoskeletal, neuro, skin, endocrine and psych systems are negative, except as otherwise noted. Objective Vitals: No vitals were obtained today due to virtual visit. Physical Exam GENERAL: Healthy, alert and no distress EYES: Eyes grossly normal to inspection. No discharge or erythema, or obvious scleral/conjunctival abnormalities. HENT: Normal cephalic/atraumatic. External ears, nose and mouth without ulcers or lesions. No nasal drainage visible. NECK: No asymmetry, visible masses or scars RESP: No audible wheeze, cough, or visible cyanosis. No visible retractions or increased work of breathing. SKIN: Visible skin clear. No significant rash, abnormal pigmentation or lesions. NEURO: Cranial nerves grossly intact. Mentation and speech appropriate for age. PSYCH: Mentation appears normal, affect normal/bright, judgement and insight intact, normal speech and appearance well-groomed. Video-Visit Details Type of service: Video Visit Video End Time:1:39 PM Originating Location (pt. Location): Home Distant Location (provider location): [facility] Platform used for Video Visit: NinfaLuxim documented in this encounter Plan of Treatment Upcoming Encounters Date Type Specialty Care Team Description 09/26/2022 Appointment Speech Therapy Obdulio Barrera MD 420 [facility] 276 [place] [address] Anabel Chew, CASH ANALYST [facility] [address] [facility] 396 [place] [address] 09/27/2022 Therapy Visit Physical Therapy Luisana Watkins, PT [address] [place] [address] 09/29/2022 Virtual Visit Pain & Palliative Marilia Deluna, Care PhD [address] [place] [address] 09/30/2022 Office Visit Family Practice Aydee Burton, PAD MAKING MACHINE OPERATOR [facility] [address] [place], [place] [address] 10/03/2022 Therapy Visit Physical Therapy Una Reardon, PT [address] [place] [phone] 10/10/2022 Hospital Encounter Surgery Lesly Celaya MD [address] [place], [place] [address] 10/10/2022 Office Visit Surgery Lesly Celaya MD [address] [place], [place] [phone] Ninoska Flowers PA-C [address] [place], [place] [phone] 10/10/2022 Surgery Surgery Lesly Celaya, EXCISION, MASSES - MD back, abdomen, [address] [place] [address] 10/11/2022 Virtual Visit Pharm Clari Stoll, [place] [address] [address] 10/14/2022 Appointment Speech Therapy Anabel Chew, CASH ANALYST [address] [address] 10/21/2022 Office Visit Pulmonology Obdulio Barrera MD [address] [facility] 276 [place], [place] [address] 10/25/2022 PRE VISIT ENT Charo Burton MD Previsit [address] [place], [place] [address] 10/25/2022 Office Visit Charo Carter MD [address] [place], [place] [address] 10/25/2022 Office Visit ENT Provider, Jeannette 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 Wage Hand 10/28/2022 Appointment Speech Therapy Anabel Chew, CASH ANALYST [address] [address] 11/17/2022 Appointment Speech Therapy Anabel Chew, CASH ANALYST [facility] 516 [facility] 396 [place], [place] [address] 12/23/2022 Office Visit Neurology Colby Yeung MD [address] [place] [place] [address] Scheduled Procedures Name Priority Associated Diagnoses Date/Time EXCISION, MASS, TORSO Lipoma of skin and subcuta neous 10/10/2022 7:30 AM HEEL SCOURER tissue Scheduled Referrals Name Type Priority Associated Diagnoses Order S chedule Referral to Acute and Referral Routine SOB (shortness of E xpected: 03/08/2022 Diagnostic Services breath) (Approximate), (Day of diagnostic / Leg swellin g Expires: 03/08/2023 First order acute) Discoloration of skin of multiple sites of lower extremity documented as of this encounter Visit Diagnoses Diagnosis SOB (shortness of breath) - Primary Shortness of breath Leg swelling Swelling of limb Discoloration of skin of multiple sites of lower extremity Other symptoms involving skin and integu mentary tissues Severe episode of recurrent major depres sive disorder, without psychotic features (H) Lipoma of skin and subcutaneous tissue Lipoma of other skin and subcutaneous ti ssue documented in this encounter Additional Health Concerns Assessment Noted Time PHQ-9 Depression Total Score: 20 03/02/2022 7:02 AM CD T documented as of this encounter Care Teams Oracle Manager Relationship Specialty Start Date End Date Aydee Burton, PCP - General Nurse Practitioner - 05/17/21 PAD MAKING MACHINE OPERATOR BEER COIL CLEANER Family [address] [place] [phone] Aydee Burton, Assigned PCP 04/28/21 PAD MAKING MACHINE OPERATOR BEER COIL CLEANER [address] [place] [address]392 Louisa Hood, Assigned Neuroscience 07/11/21 PAD MAKING MACHINE OPERATOR BEER COIL CLEANER [address] [phone] Se Levy, Lead Plywood Layup Line Back Feeder 08/05/21 05/12/22 RELIEF COOKClari Ordonez Pharmacist Pharmacist 08/06/21 06/07/22 Jocelyn [facility] [address] [place], [place] [address] [place], Assigned Sleep 08/01/21 Angel Turcios, Provider [address] [place], [place] [address] Lesly Celaya MD Assigned Surgical 09/05/21 [address] [place] [place] [address] Tawana Patel [facility] 09/30/21 Worker Ramses Mcpherson Assigned OBGYN 11/07/21 MD Onesimo Provider [address] [place], [place] [phone] Obdulio Barrera MD Critical Care 01/24/[address] [place] [address] 276 [place] [address] Obdulio Barrera, Tone Pulmonology 02/06/22 Provider 420 [facility] 276 [place], [place] [phone] Lesvia Stanley EP Cardiac Rehabilitation 03/03/22 03/03/23 [facility] Therapist [address] [place] [address] Marilia Deluna, PhD Assigned Behavioral 02/20/22 [address] [facility] Provider [place], [place] [address] Niyah Decker, [facility] Pharmacist Pharmacist 03/07/22 420 [facility] 812 [place] [address] Clari Poole, Pharmacist Pharmacist 03/07/22 06/15/22 [facility] [address] [facility] [place] [address] Mago Swift, [facility] Lead Plywood Layup Line Back Feeder Maintenance Chief - 08/05/21 Clinical documented as of this encounter
--- OUTSIDE RECORDS SUMMARY | 2022-09-21 04:08 | XMS_ITS | Encounter Summary ---
:1980 Author Organization [facility] Address [address] [place] [address] Care Team Providers Name Role Phone Aydee Burton FINANCIAL BROKERS RISK CONSULTING TREASURY DIRECTOR Primary Care Provider [phone] Aydee Burton FINANCIAL BROKERS RISK CONSULTING TREASURY DIRECTOR Unavailable [phone] Louisa Hood FINANCIAL BROKERS RISK CONSULTING TREASURY DIRECTOR Unavailable [phone] Se Levy [facility] Unavailable Unavailable Clari Ruiz [facility] Unavailable Angel Hannah MD Unavailable Lesly Celaya MD Unavailable Tawana Patel MA Unavailable Unavailable Ramses Mcpherson MD Unavailable [phone] Kirk Barrera MD Unavailable [phone] Kirk Barrera MD Unavailable [phone] Lesvia Stanley Unavailable Marilia Deluna PhD Unavailable Niyah Decker [facility] Unavailable Clari Poole [facility] Unavailable Mago Swift [facility] Unavailable Reason for Referral Diagnostic Imaging CT Scan (Routine) - Closed Specialty Diagnoses / Procedures Referred By Contact Refer red To Contact Diagnoses SOB (shortness of breath) Nelson Mcintyre Procedures CT Chest Pulmonary Embolism w Jennifer Alfred MD [address] [place] [address] Referral ID Status Reason Start Date Expiration Date Visits Requ ested Visits Authorized [id number] Closed 03/08/2022 03/08/2023 1 1 Reason for Visit Diagnostic Imaging CT Scan (Routine) - Closed Specialty Diagnoses / Procedures Referred By Contact Refer red To Contact Diagnoses SOB (shortness of breath) Nelson Mcintyre Procedures CT Chest Pulmonary Embolism w Jennifer Alfred MD [address] [place] [address] Referral ID Status Reason Start Date Expiration Date Visits Requ ested Visits Authorized [id number] Closed 03/08/2022 03/08/2023 1 1 Encounter Details Date Type Department Care Team Description 03/08/2022 Hospital Encounter [facility] Nelson Mcintyre SOB (shortness of [facility] Iftikhar Alfred, breath) [address] Harvey MD [place], [place] [address] [address] [facility] [address] [place] [id number] Social History Tobacco Use Types Packs/Day Years [...] How often do you attend jew or shinto services? 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 COVID-19 Exposure Response Date Recorded In the [...] C) 250 MG CHEW chewable daily tablet gabapentin (NEURONTIN) 4 times daily 0 12/14/2021 [...] Care Team Description 09/26/2022 Appointment Speech Therapy Kirk Barrera MD [address] [place] [address] 276 [place], [place] [address] Anabel Chew, CONSOLE OPERATOR [address] [place], [place] [address] 09/27/2022 Therapy Visit Physical Therapy Luisana Watkins, PT [address] [place] [address] 09/29/2022 Virtual Visit Pain & Palliative Marilia Deluna, Care PhD [address] [place] [address] 09/30/2022 Office Visit Family Practice Aydee Burton, FINANCIAL BROKERS [facility] [address] [place] [phone] 10/03/2022 Therapy Visit Physical Therapy Una Reardon, PT [address] [place] [phone] 10/10/2022 Hospital Encounter Surgery Lesly Celaya MD [address] [facility] [place] [place] [phone] 10/10/2022 Office Visit Surgery Lesly Celaya MD [address] [place], [place] [phone] Ninoska Flowers PA-C [address] [place], [place] [address] 10/10/2022 Surgery Surgery Lesly Celaya, EXCISION, MASSES - MD back, abdomen, [address] extremity [place], [place] [address] 10/11/2022 Virtual Visit Pharm Clari Stoll, [facility] [address] [place] [id number] [place] [address] 10/14/2022 Appointment Speech Therapy Anabel Chew, CONSOLE OPERATOR [address] [address] 10/21/2022 Office Visit Pulmonology Kirk Barrera MD [address] [place] [address] 276 [place], [place] [address] 10/25/2022 PRE VISIT ENT Charo Burton MD Previsit [address] [place] [address] 10/25/2022 Office Visit Charo Carter MD [address] [place] [address] 10/25/2022 Office Visit ENT Provider, 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 Order Analyst 10/28/2022 Appointment Speech Therapy Anabel Chew, CONSOLE OPERATOR [address] 3[address]15 11/17/2022 Appointment Speech Therapy Anabel Chew, CONSOLE OPERATOR [address] [address] 12/23/2022 Office Visit Neurology Colby Yeung MD [address] [place], [place] [address] Scheduled Procedures Name Priority Associated Diagnoses Date/Time EXCISION, MASS, TORSO Lipoma of skin and subcuta neous 10/10/2022 7:30 AM GOLD LEAF GILDER tissue documented as of this encounter Procedures Procedure Name Priority Date/Time Associated Diagnosis Comme nts CT CHEST PULMONARY STAT 03/08/2022 4:17 PM SOB (shortness o f Results for this EMBOLISM W CONTRAST CDT breath) procedur e are in the results section. documented in this encounter Results CT Chest Pulmonary Embolism w Contrast (03/08/2022 4:17 PM CDT) Anatomical Region Laterality Modality Chest, SUBRAD CT BODY, UMP CT CHEST Comp uted Tomography Specimen (Source) Anatomical Location Collection Method / Collectio n Time Received Time / Laterality Volume Impressions 03/08/2022 4:38 PM CDT IMPRESSION: 1. ??No acute abnormality in the chest. No evidence for pulmonary embolism. 2. ??Subacute mildly displaced fractures of the left fourth and fifth ribs anterolaterally and of the right fi fth rib anteriorly. 3. ??Indeterminate 1 cm nodule in the ri ght breast superiorly and medially. Breast malignancy cannot be ex cluded. Clinical and mammographic correlation is recommended. KIRK LORENZANA MD Narrative 03/08/2022 4:[address] CHEST PULMONARY EMBOLISM WITH CONTRAST ??03/08/2022 4:17 PM CLINICAL HISTORY: Shortness of breath. C ough. TECHNIQUE: CT angiogram chest during art erial phase injection IV contrast. 2D and 3D MIP reconstructions were performed by the chief radiologic technologist. Dose reduction techniques were used. CONTRAST: 90 mL Isovue-370 COMPARISON: Chest CT performed 01/14/2022. FINDINGS: ANGIOGRAM CHEST: Pulmonary arteries are normal caliber and negative for pulmonary emboli. Thoracic aorta is negative for dissection. No CT evidence of right heart strain. LUNGS AND PLEURA: No pleural effusions. Scattered small calcified granulomas in both lungs. The lungs are otherwise clear. No lung masses or consolidations. No pneumothora x. MEDIASTINUM/AXILLAE: No lymphadenopathy in the chest. No pericardial effusion. Bilateral breast implants are noted. Indeterminate 1 cm nodule in the right breast superiorly an d medially, unchanged. CORONARY ARTERY CALCIFICATION: None. UPPER ABDOMEN: Limited views of the uppe r abdomen are unremarkable. MUSCULOSKELETAL: Mildly displaced healin g fractures of the left fourth and fifth ribs anterolaterally. There is also a healing mildly displaced fracture of the right fifth ri b anteriorly. These fractures demonstrate mild associated callus forma tion and are likely subacute. These fractures are new since the previo us exam. Procedure Note Kirk Lorenzana MD - 03/08/2022Forma tting of this note might be different from the original. CT CHEST PULMONARY EMBOLISM WITH CONTRAS T 03/08/2022 4:17 PM CLINICAL HISTORY: Shortness of breath. C ough. TECHNIQUE: CT angiogram chest during art erial phase injection IV contrast. 2D and 3D MIP reconstructions were performed by the chief radiologic technologist. Dose reduction techniques were used. CONTRAST: 90 mL Isovue-370 COMPARISON: Chest CT performed 01/14/2022. FINDINGS: ANGIOGRAM CHEST: Pulmonary arteries are normal caliber and negative for pulmonary emboli. Thoracic aorta is negative for dissection. No CT evidence of right heart strain. LUNGS AND PLEURA: No pleural effusions. Scattered small calcified granulomas in both lungs. The lungs are otherwise clear. No lung masses or consolidations. No pneumothora x. MEDIASTINUM/AXILLAE: No lymphadenopathy in the chest. No pericardial effusion. Bilateral breast implants are noted. Indeterminate 1 cm nodule in the right breast superiorly an d medially, unchanged. CORONARY ARTERY CALCIFICATION: None. UPPER ABDOMEN: Limited views of the uppe r abdomen are unremarkable. MUSCULOSKELETAL: Mildly displaced healin g fractures of the left fourth and fifth ribs anterolaterally. There is also a healing mildly displaced fracture of the right fifth ri b anteriorly. These fractures demonstrate mild associated callus forma tion and are likely subacute. These fractures are new since the previo us exam. IMPRESSION: 1. No acute abnormality in the chest. No evidence for pulmonary embolism. 2. Subacute mildly displaced fractures o f the left fourth and fifth ribs anterolaterally and of the right fi fth rib anteriorly. 3. Indeterminate 1 cm nodule in the righ t breast superiorly and medially. Breast malignancy cannot be ex cluded. Clinical and mammographic correlation is recommended. KIRK LORENZANA MD Nelson Mcintyre MD IMG CT ORDERABLES documented in this encounter Visit Diagnoses Diagnosis SOB (shortness of breath) Shortness of breath Lipoma of skin and subcutaneous tissue Lipoma of other skin and subcutaneous ti ssue documented in this encounter Administered Medications Inactive Administered Medications - up to 3 most recent administrations Medication Order MAR Action Action Date Dose Rate Site CT Scan Flush Given 03/08/2022 4:06 PM CDT 96 mLs Intravenous, 100 mL, ONCE, On Mon03/08/22 at 1630, For 1 dose, This entry is for use by Radiology to intermittently used as a flush in patients receiving a CT scan. iopamidol (ISOVUE-370) solution 500 mL Given 03/08/2022 4:04 PM CDT 90 mLs 500 mL, Intravenous, ONCE, On Mon03/08/22 at 1630, For 1 dose documented in this encounter Additional Health Concerns Infection Onset Date Last Indicated Resolved Time Rule Out COVID-19 03/08/2022 03/08/2022 03/08/2022 4:1 9 PM CDT Rule Out Pertussis 03/08/2022 03/08/2022 03/09/2022 9: 56 AM CDT Assessment Noted Time PHQ-9 Depression Total Score: 20 03/02/2022 7:02 AM CD T documented as of this encounter Care Teams Liability Claims Adjuster Relationship Specialty Start Date End Date Aydee Burton, PCP - General Nurse Practitioner - 05/17/21 FINANCIAL BROKERS RISK CONSULTING TREASURY DIRECTOR Family [address] [place] [address]802 Aydee Burton, Assigned PCP 04/28/21 FINANCIAL BROKERS RISK CONSULTING TREASURY DIRECTOR [address] [place], [place] [address] Louisa Hood, Assigned Neuroscience 07/11/21 FINANCIAL BROKERS RISK CONSULTING TREASURY DIRECTOR Provider [address] [place] [address] [id number] Se Levy, Lead Bindery Machine Setter 08/05/21 05/12/22 [facility] Clari Ruiz Pharmacist Pharmacist 08/06/21 06/07/22 Jocelyn [facility] [address] [place] [address] [place], Assigned Sleep 08/01/21 Angel Turcios, Provider [address] [place] [address] Lesly Celaya MD Assigned Surgical 09/05/21 [address] [place] [address] Tawana Patel MA [facility] 09/30/21 Worker Ramses Mcpherson Assigned OBGYN 11/07/21 MD Onesimo Provider [address] [place] [address] Kirk Barrera MD Critical Care 01/24/[address] [place] [address] 276 [place], [place] [phone] Kirk Barrera, Assigned Pulmonology 02/06/22 MD Provider [address] [place] [address] 276 [place], [place] [address] Lesvia Stanley EP Cardiac Rehabilitation 03/03/22 03/03/23 [facility] Therapist [address] [facility] [address] [place], [place] [address] Marilia Deluna, PhD Assigned Behavioral 02/20/22 [address] [facility] Provider [place], [place] [phone] Niyah Decker, [facility] Pharmacist Pharmacist 03/07/22 420 [facility] [address] [place], [place] [phone] Clari Poole, Pharmacist Pharmacist 03/07/22 06/15/22 [facility] [address] [place], [place] [address] Mago Swift [facility] Lead Bindery Machine Setter Supervisor Accounts Receivable - 08/05/21 Clinical documented as of this encounter
--- OUTSIDE RECORDS SUMMARY | 2022-09-21 04:08 | XMS_ITS | Encounter Summary ---
:1980 Author Organization [facility] Address [address] [place] [address] Care Team Providers Name Role Phone Aydee Burton CANCER REGISTRAR ARTIFICIAL TEETH INSPECTOR Primary Care Provider [phone] Aydee Burton CANCER REGISTRAR ARTIFICIAL TEETH INSPECTOR Unavailable [phone] Louisa Hood CANCER REGISTRAR ARTIFICIAL TEETH INSPECTOR Unavailable [phone] Se Levy [facility] Unavailable Unavailable Clari Ruiz [facility] Unavailable Angel Hannah MD Unavailable Lesly Celaya MD Unavailable Tawana Ptael MA Unavailable Unavailable Ramses Mcpherson MD Unavailable [phone] Obdulio Barrera MD Unavailable [phone] Obdulio Barrera MD Unavailable [phone] Lesvia Stanley Unavailable Marilia Deluna PhD Unavailable Niyah Decker [facility] Unavailable Clari Poole [facility] Unavailable Mago Swfit [facility] Unavailable Reason for Visit Reason Comments Medication Therapy Management Med Therapy Management (Routine: Next available opening) - Closed Specialty Diagnoses / Procedures Referred By Contact Refer red To Contact Pharmacist Diagnoses Sleep walking and eating Polypharmacy Aydee Burton APRN ARTIFICIAL TEETH INSPECTOR [address] [place] [address] Referral ID Status Reason Start Date Expiration Date Visits Requ ested Visits Authorized [id number] Closed 03/01/2022 03/01/2023 1 1 Encounter Details Date Type Department Care Team Description 03/07/2022 Office Visit [facility] Aydee Burton Ch, APRN ARTIFICIAL TEETH INSPECTOR [address] [place], [place] [id number] Major depressive disorder, remission sta tus unspecified, unspecified whether recurrent (Primary Dx); Clinic [place] Clari Poole, [facility] [address] [place] [id number] SHAMEKA (generalized anxiety disorder); [address] [facility] PTSD (post -traumatic stress disorder); [address]hma; [address]; [place], [place] Takes dietary supplements; [phone] Severe asthma, unspecified w hether complicated, unspecified whether persistent [phone] Social History Tobacco Use Types Packs/Day Years [...] How often do you attend worship or cheondoism services? Never 08/05/2021 Do you [...] at Date Recorded Female 11/09/2021 7:53 PM GAMBLING COUNSELLOR COVID-19 Exposure Response Date Recorded In the last 10 days, have you been in contact with No / Unsu re 03/08/2022 2:16 PM CDT someone who was confirmed or suspected to have Coronavirus/COVID-19? documented as of this encounter Last Filed Vital Signs Vital Sign Reading Time Taken Comments Blood Pressure 118/62 03/07/2022 10:48 AM CDT Pulse - - Temperature - - Respiratory Rate - - Oxygen Saturation - - Inhaled Oxygen Concentration - - Weight 98.3 kg (216 lb 12.8 oz) 03/07/2022 10:48 AM CDT Height - - Body Mass Index 33.96 03/01/2022 9:50 AM CDT documented in this encounter Patient Instructions Patient InstructionsWeClari dejesus, [facility] - 03/07/2022 10:38 AM CDT Recommendations from today's MTM visit: MTM (medication therapy management) is a service provided by a clinical pharmacist designed to help you get the most of out of your medicines. Today we reviewed what your medicines are for, how to know if they are working, that your medicines are safe and how to make your medicine regimen as easy as possible. I will talk to Dr. Barrera about adding montelukast to help with asthma. I will talk to Dr. Monroy and Dr. Burton about ordering a GeneSight test for you so we can determine what mental health medications are our best options. Follow-up: Return in about 4 weeks (around 04/04/2022) for MTM Pharmacist Visit. It was great speaking with you today. I value your experience and would be very thankful for your time in providing feedback in our clinic survey. In the next few days, you may receive an email or textmessage from [employer] with a link to a survey related to your ???clinical pharmacist. To schedule another MTM appointment, please call the clinic directly or you may call the MTM scheduling line at [phone] or toll-free at . My Clinical Pharmacist's contact information: Please feel free to contact me with any questions or concerns you have. Clari Poole PharmD Medication Therapy Management Resident Pager: [phone] documented in this encounter Progress Notes Clari Poole RPH - 03/07/2022 9:30 AM CDT Medication Therapy Management (MTM) Encounter ASSESSMENT: Medication Adherence/Access: No issues identified Depression/Anxiety/PTSD: Patient is not meeting PHQ9 goal [...] options and minimize side effects if possible. Asthma: Asthma Control Test (ACT) is not > or equal to 20. Patient is still having severe symptoms despite being on all inhaler medication options for 1 month. Per 2019 DREW guidelines, could consider addition of montelukast, azithromycin, or low dose oral corticosteroids. Could also consider phenotypic assessment at next pulmonology appointment to determine if biologics may be a treatment possibility. Would benefit from starting montelukast 10 mg nightly to help decrease symptoms or severity of symptoms. Chronic Pain: Patient is working closely with the pain clinic to manage facial pain. Would benefit from continued follow up with pain management. Supplements: Stable. PLAN: 1. I will talk to Dr. Barrera about adding montelukast to help with asthma. 2. I will talk to Dr. Monroy and Dr. Burton about ordering a GeneSight test for you so we candetermine what mental health medications are our best options. Follow-up: Return in about 4 weeks (around 04/04/2022) for MTM Pharmacist Visit. SUBJECTIVE/OBJECTIVE: Marta Hill is a 42 year old female coming in for an initial visit for 2021. She was referred to me from Aydee Burton. Reason for visit: Sleep eating overnight, weight gain, swollen ankles from mental health medications Out of breath just from walking from one room to the other Allergies/ADRs: Reviewed in chart Past Medical History: Reviewed in chart Tobacco: She reports that she has never smoked. She has never used smokeless tobacco. Alcohol: not currently using Medication Adherence/Access: Patient takes medications directly from bottles. Per patient, misses medication 0-1 times per week. Medication barriers: affording medications. The patient fills medications at [facility]: NO, fills medications at [facility]. Depression/Anxiety/PTSD: Current medications include: bupropion XL 300 mg daily, duloxetine 120 mg daily, lamotrigine 200 mg + 100 mg qPM, quetiapine 200 mg nightly and 100 mg as needed. Reports she ishaving several side effects from medications. States most concerning to her is sleep behaviors. Frequently is up talking on her phone, eating, or walking around in her sleep and does not realize she did anything until she wakes up with her phone or food in her hands. States she is having visual hallucinations of objects on the road that she thinks are there until suddenly her spell ends and the object disappears. Reports she has extreme drowsiness particularly in the morning and finds it difficultto keep her eyes open at times. States her irritability has worsened lately. Notes she has also gained weight in the last few months and had an increased appetite. Doesn't know if the sleep eating has really caused all of the weight gain or not. Therapies tried and failed: Prozac, sertraline, escitalopram, Abilify (per patient) Sees psychiatrist: Carly Monroy (provider is leaving this clinic on 03/11) [facility] ([phone][facility] PHQ 06/27/2021 01/24/2022 03/01/2022 PHQ-9 Total Score 22 15 20 Q9: Thoughts of better off /self-harm past 2 weeks Not at all Not at all Not at all F/U: Thoughts of suicide or self-harm - - - F/U: Self harm-plan - - - F/U: Self-harm action - - - F/U: Safety concerns - - - SHAMEKA-7 SCORE 05/28/2021 06/11/2021 06/27/2021 Total Score - 19 (severe anxiety) 16 (severe anxiety) Total Score 9 19 16 Asthma: Current asthma medications: albuterol inhaler as needed (4+ times daily), albuterol neb solution as needed (doesn't use), Duoneb as needed (2-5 times daily), Symbicort 2 puffs twice daily, Spiriva 1 puff daily. Reports her symptoms are coughing, chest tightness, and fatigue. Has some yellow mucus she coughs up 1-2 times weekly but nothing consistent. Reports she thinks she has had asthma mostof her life but never had any treatment. Remembers having chest tightness with cold weather her whole life. Symptoms really worsened over the last few months and don't seem to be getting any better with current inhalers. Follows with pulmonology (Dr. Barrera). Last visit [...] hospitalized overnight because of your asthma? 0 Chronic pain: Current medications include: acetaminophen 1000 mg four times daily as needed, gabapentin 400 mg four times daily, methocarbamol 500 mg three times daily as needed. Reports she has neck and face pain every day (typically happens later in the day). Neck pain goes into her shoulder and then she feels her face tighten in her cheek and around her ear with a pain and burning sensation. The pain then wraps around her forehead and feels like it is squeezing and burning for hours. Will wrap face with heat pack which helps. States she has pain still with all her medications and the pain lasts for hours. Did have nerve blocks from pain management but they only lasted a couple weeks. Did try botox but it made the pain worse. Has Ondansetron for nausea on hand due to pain. Follows with pain clinic, Dr. Anaya. Last visit 02/24/22. Plan at visit: Clinical Health Pain Psychologist:??Pain phd referral placed. 1. Self Care Recommendations: Gentle progressive exercise that does not increase pain - gradually increase daily walking program. ??Take mini breaks - 5 minutes of mindfullness a couple times a day. Yoga exercises provided. 2. Diagnostic Studies:??consider cervical MRI if neck pain is persistent. 3. Referrals: neurology headache clinic at [facility]. 4. Medication Management:? Gabapentin 400mg QID ?? Continue duloxetine 120mg qhs ?? Methocarbamol 500-750mg TID prn. ?? Advised not to take more than 1 type of nsaid during the same day. 5. Further procedures recommended:??TPI and bilateral ONB can be repeated every 3+ months. 6. Follow up:??2 months. Supplements: Currently taking vitamin C 750 mg daily, vitamin D 2000 units daily. No reported issuesat this time. Today's Vitals: BP 118/62 Wt 216 lb 12.8 oz (98.3 kg) LMP 12/11/2021 (Exact Date) BMI 33.96 kg/m?? I spent 70 minutes with this patient today. I offer these suggestions for consideration by Dr. Burton, Dr. Monroy, and Dr. Barrera. A copy of the visit note was provided to the patient's provider(s). The patient was given a summary of these recommendations. Ms. Hill was seen independently by Dr. Poole. I have reviewed and agree with the resident note and plan of care. Niyah Decker, PharmD Clari Poole, PharmD Medication Therapy Management Resident Pager: [phone] Medication Therapy Recommendations Asthma Current Medication: budesonide-formoterol (SYMBICORT) 160-4.5 MCG/ACT Inhaler Rationale: Synergistic therapy - Needs additional medication therapy - Indication Recommendation: Start Medication - montelukast 10 MG tablet Status: Contact Provider - Awaiting Response Electronically signed by Clari oPole, [facility] at 03/09/2022 12:52 PM CDT documented in this encounter Plan of Treatment Upcoming Encounters Date Type Specialty Care Team Description 09/26/2022 Appointment Speech Therapy Obdulio Barrera MD [address] [facility] [address] [place], [place] [id number] Anabel Chew, TENSILE TESTER [place] [address] [facility] [address] [place], [place] [address] 09/27/2022 Therapy Visit Physical Therapy Luisana Watkins, PT [address] [place] [address] 09/29/2022 Virtual Visit Pain & Palliative Marilia Deluna, [facility] PhD [address] [place], [place] [id number] 09/30/2022 Office Visit Family Practice Aydee Burton, CANCER REGISTRAR ARTIFICIAL TEETH INSPECTOR [address] [place], [place] [phone] 10/03/2022 Therapy Visit Physical Therapy Una Reardon, PT [address] [place] [phone] 10/10/2022 Hospital Encounter Surgery Lesly Celaya MD [address] [place] [phone] 10/10/2022 Office Visit Surgery Lesly Celaya MD [address] [place] [address] Ninoska Flowers, PA-C [address] [place] [address] 10/10/2022 Surgery Surgery Lesly Celaya, EXCISION, MASSES - MD back, abdomen, [address] [place] [address] 10/11/2022 Virtual Visit Clari Su, [place] [id number] [id number] 10/14/2022 Appointment Speech Therapy Anabel Chew, TENSILE TESTER [address] [id number] 10/21/2022 Office Visit Pulmonology Obdulio Barrera MD [address] [facility] [address] [place], [place] [address] 10/25/2022 PRE VISIT ENT Charo Burton MD Previsit [address] [place] [id number] 10/25/2022 Office Visit Charo Carter MD [address] [place] [phone] 10/25/2022 Office Visit ENT Provider, 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 Trichologist 10/28/2022 Appointment Speech Therapy Anabel Chew, TENSILE TESTER [address] [phone] 11/17/2022 Appointment Speech Therapy Anabel Chew, TENSILE TESTER [facility] [address] [facility] [address] [place], [place] [address] 12/23/2022 Office Visit Neurology Colby Yeung MD [address] [place] [id number] Scheduled Procedures Name Priority Associated Diagnoses Date/Time EXCISION, MASS, TORSO Lipoma of skin and subcuta neous 10/10/2022 7:30 AM GAMBLING COUNSELLOR tissue Scheduled Referrals Name Type Priority Associated Diagnoses Order S chedule Med Therapy Referral Routine: Next Sleep walking and Ordered: Management Referral available opening eating 03/01/2022 Polypharmacy documented as of this encounter Visit Diagnoses Diagnosis Major depressive disorder, remission sta tus unspecified, unspecified whether recurrent - Primary SHAMEKA (generalized anxiety disorder) Generalized anxiety disorder PTSD (post-traumatic stress disorder) Posttraumatic stress disorder Asthma Unspecified asthma Pain Generalized pain Takes dietary supplements Severe asthma, unspecified whether compl icated, unspecified whether persistent Lipoma of skin and subcutaneous tissue Lipoma of other skin and subcutaneous ti ssue documented in this encounter Additional Health Concerns Assessment Noted Time PHQ-9 Depression Total Score: 20 03/02/2022 7:02 AM CD T documented as of this encounter Care Teams Helper Metal Hanging Relationship Specialty Start Date End Date Aydee Burton, PCP - General Nurse Practitioner - 05/17/21 CANCER REGISTRAR ARTIFICIAL TEETH INSPECTOR Family [address] [place] [id number] Aydee Burton, Assigned PCP 04/28/21 CANCER REGISTRAR ARTIFICIAL TEETH INSPECTOR [address] [place] [address] [phone] Louisa Hood, Assigned Neuroscience 07/11/21 CANCER REGISTRAR ARTIFICIAL TEETH INSPECTOR Provider [address] [place] [phone] Se Levy, Lead Mainframe Programmer Analyst 08/05/21 05/12/22 [facility] Clari Ruiz Pharmacist Pharmacist 08/06/21 06/07/22 Jocelyn [facility] [address] [place] [address] [place], Assigned Sleep 08/01/21 Angel Turcios, Provider [address] [place] [address] Lesly Celaya MD Assigned Surgical 09/05/21 [address] [facility] [address] Tawana Patel [facility] 09/30/21 Worker Ramses Mcpherson Assigned OBGYN 11/07/21 MD On[place] Provider [address] [place] [address] Obdulio Barrera MD Critical Care 01/24/22 MD [address] [facility] [address] [place] [address] Obdulio Barrera, Assigned Pulmonology 02/06/22 Provider [address] [facility] [address] [place] [address] Lesvia Stanley, GHADA Cardiac Rehabilitation 03/03/22 03/03/23 [facility] HOSP Therapist [address] [place], [place] [address] Marilia Deluna, PhD Assigned Behavioral 02/20/22 [id number] [facility] [place] [address] Niyah Decker, [facility] Pharmacist Pharmacist 03/07/22 [address] [facility] [address] [place] [address] Clari Poole, Pharmacist Pharmacist 03/07/22 06/15/22 [facility] [address] [place], [place] [address] Mago Swift, [facility] Lead Mainframe Programmer Analyst Adjustment Clerk - 08/05/21 Clinical documented as of this encounter
--- OUTSIDE RECORDS SUMMARY | 2022-09-21 04:08 | XMS_ITS | Encounter Summary ---
:1980 Author Organization [facility] Address [address] [place] [address] Care Team Providers Name Role Phone Aydee Burton HORTICULTURE WORKER CLERICAL AIDE TEACHER Primary Care Provider [phone] Aydee Burton APRN CLERICAL AIDE TEACHER Unavailable [phone] Louisa Hood HORTICULTURE WORKER CLERICAL AIDE TEACHER Unavailable [phone] Se Levy MORTGAGE LOAN COUNSELOR Unavailable Unavailable Clari Ruiz [facility] Unavailable [phone] Angel Hannah MD Unavailable Lesly Celaya MD Unavailable Tawana Patel MA Unavailable Unavailable Ramses Mcpherson MD Unavailable [phone] Obdulio Barrera MD Unavailable [phone] Obdulio Barrera MD Unavailable [phone] Lesvia Stanley Unavailable Marilia Deluna PhD Unavailable Mago Swift REPRODUCTION SPECIALIST Unavailable Reason for Referral Rehab Therapy Cardiac Therapy (Routine: Next available opening) - Authorized Specialty Diagnoses / Procedures Referred By Contact Refer red To Contact CARDIAC REHAB Diagnoses Asthma SOB (shortness of breath) [address] [phone] Phone: Referral ID Status Reason Start Date Expiration Date Visits V isits Requested Authorized [id number] Authorized 11/13/2021 11/12/2022 365 365 Reason for Visit Rehab Therapy Cardiac Therapy (Routine: Next available opening) - Authorized Specialty Diagnoses / Procedures Referred By Contact Refer red To Contact CARDIAC REHAB Diagnoses Asthma SOB (shortness of breath) [address] [address] Phone: Referral ID Status Reason Start Date Expiration Date Visits V isits Requested Authorized [id number] Authorized 11/13/2021 11/12/2022 365 365 Encounter Details Date Type Department Care Team Description 03/03/2022 [facility] [place], Obdulio Bailey MD [address] [facility] [address] [place] [address] Asthma; Encounter Cardiac and Pulmonary 1, Rh Pulmonary Rehab SOB (shortness of breath) Rehabilitation [address] [place] [address] Social History Tobacco Use Types [...] How often do you attend anabaptist or zoroastrian services? Never 08/05/2021 Do you [...] at Date Recorded Female 11/09/2021 7:53 PM MICROFILM MACHINE OPERATOR COVID-19 Exposure Response Date Recorded In the last 10 days, have you been in contact with No / Unsu re 03/03/2022 3:55 PM CDT someone who was confirmed or [...] point of spasms shoulder region, unspecified laterality omeprazole (PRILOSEC) Take 1 capsule (20 14 capsule 0 202103/07/[address] mg) by mouth daily capsuleIndications: for 14 days Decrease Chest pain, unspecified down to once daily type, Chest tightness for 2 weeks then stop ondansetron Take 1 tablet (4 mg) 20 tablet 0 02/11/2022 (ZOFRAN-ODT) 4 MG ODT by mouth every [...] Obdulio Barrera MD [address] [facility] [address] [place], [place] [id number] Anabel Chew, CUTTER GRIND TOOL TECHNICIAN [place] [address] [facility] [address] [place] [address] 09/27/2022 Therapy Visit Physical Therapy Luisana Watkins, PT [address] [place] [address] 09/29/2022 Virtual Visit Pain & Palliative Marilia Deluna, Care PhD [address] [place], [place] [address] 09/30/2022 Office Visit Family Practice Aydee Burton, [facility] [address] [place], [place] [address] 10/03/2022 Therapy Visit Physical Therapy Una Reardon, PT [address] [place] [phone] 10/10/2022 Hospital Encounter Surgery Lesly Celaya MD [address] [place], [place] [address] 10/10/2022 Office Visit Surgery Lesly Celaya MD [address] [place], [place] [phone] Ninoska Flowers, FLORES-C [address] [place], [place] [address] 10/10/2022 Surgery Surgery Lesly Celaya, EXCISION, MASSES - MD back, abdomen, [address] extremity [place], [place] [address] 10/11/2022 Virtual Visit Pharm Clari Stoll, [facility] [address] [place] [id number] [place], [place] [phone] 10/14/2022 Appointment Speech Therapy Anabel Chew, CUTTER GRIND TOOL TECHNICIAN [address] [phone] 10/21/2022 Office Visit Pulmonology Obdulio Barrera MD [address] [facility] [address] [place], [place] [address] 10/25/2022 PRE VISIT ENT Charo Burton MD Previsit [address] [place] [address] 10/25/2022 Office Visit Charo Carter MD [address] [place] [phone] 10/25/2022 Office Visit ENT Provider, 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 [facility] 10/28/2022 Appointment Speech Therapy Anabel Chew, CUTTER GRIND TOOL TECHNICIAN [address] [phone] 11/17/2022 Appointment Speech Therapy Anabel Chew, CUTTER GRIND TOOL TECHNICIAN [address] [address] 12/23/2022 Office Visit Neurology Colby Yeung MD [address] [id number] Scheduled Procedures Name Priority Associated Diagnoses Date/Time EXCISION, MASS, TORSO Lipoma of skin and subcuta neous 10/10/2022 7:30 AM MICROFILM MACHINE OPERATOR tissue Scheduled Referrals Name Type Priority Associated Order Schedule Diagnoses Pulmonary Rehab Referral Routine: Next Asthma 1 Occurrences Referral available opening SOB (shortness of start ing 03/03/2022 breath) until 2 documented as of this encounter Procedures Procedure Name Priority Date/Time Associated Diagnosis Comme nts OXIMETRY - HIM SCAN 03/03/2022 12:00 AM CDT documented in this encounter Results OXIMETRY - HIM SCAN (03/03/2022 12:00 AM CDT) Specimen (Source) Anatomical Location Collection Method / Collectio n Time Received Time / Laterality Volume 03/03/2022 Narrative This result has an attachment that is no t available. Provider Outside PFT ORDERABLES documented in this encounter Visit Diagnoses Diagnosis Asthma Unspecified asthma SOB (shortness of breath) Shortness of breath Lipoma of skin and subcutaneous tissue Lipoma of other skin and subcutaneous ti ssue documented in this encounter Additional Health Concerns Assessment Noted Time PHQ-9 Depression Total Score: 20 03/02/2022 7:02 AM CD T documented as of this encounter Care Teams Rubber Tubing Splicer Relationship Specialty Start Date End Date Aydee Burton, PCP - General Nurse Practitioner - 05/17/21 HORTICULTURE WORKER CLERICAL AIDE TEACHER Family [address] [place], [place] [phone] Aydee Burton, Assigned PCP 04/28/21 HORTICULTURE WORKER CLERICAL AIDE TEACHER [address] [place], [place] [address] Louisa Hood, Assigned Neuroscience 07/11/21 HORTICULTURE WORKER CLERICAL AIDE TEACHER Provider [address] [place] [id number] Se Levy, Lead Facility Engineer 08/05/21 05/12/22 [facility] Clari Ruiz Pharmacist Pharmacist 08/06/21 06/07/22 Jocelyn, [facility] [address] [place], [place] [address] [place], Assigned Sleep 08/01/21 Angel Turcios, Provider [address] [place] [address] Lesly Celaya MD Assigned Surgical 09/05/21 [address] [facility] [place] [address] Tawana Patel [facility] 09/30/21 Worker Ramses Mcpherson Assigned OBGYN 11/07/21 MD [place] Provider [address] [place] [address] Obdluio Barrera MD Critical Care 01/24/[address] [address] Obdulio Barrera, Assigned Pulmonology 02/06/[address] [place] [address] Lesvia Stanley, GHADA Cardiac Rehabilitation 03/03/22 03/03/23 [facility] Therapist [address] [place] [id number] Marilia Deluna, PhD Assigned Behavioral 02/20/22 [address] [facility] [place] [address] Mago Swift, [facility] Lead Facility Engineer Office Assistant Receptionist - 08/05/21 Clinical documented as of this encounter
--- OUTSIDE RECORDS SUMMARY | 2022-09-21 04:08 | XMS_ITS | Encounter Summary ---
:1980 Author Organization [facility] Address [address] [place] [address] Care Team Providers Name Role Phone Aydee Burton SUPERVISOR PERSONNEL CLERKS MANAGER OF HUMAN RESOURCES Primary Care Provider [phone] Aydee Burton SUPERVISOR PERSONNEL CLERKS MANAGER OF HUMAN RESOURCES Unavailable [phone] Louisa Hood SUPERVISOR PERSONNEL CLERKS MANAGER OF HUMAN RESOURCES Unavailable [phone] Se Levy [facility] Unavailable Unavailable Clari uRiz [facility] Unavailable Angel Hannah MD Unavailable Lesly Celaya MD Unavailable Tawana Patel MA Unavailable Unavailable Ramses Mcpherson MD Unavailable [phone] Kirk Barrera MD Unavailable [phone] Kirk Barrera MD Unavailable [phone] Lesvia Stanley Unavailable Marilia Deluna PhD Unavailable Niyah Decker [facility] Unavailable Clari Poole [facility] Unavailable Mago Swift [facility] Unavailable Reason for Referral Diagnostic Imaging Ultrasound (Routine) - Pending Review Specialty Diagnoses / Procedures Referred By Contact Refer red To Contact Diagnoses Leg swelling Nelson Mcintyre Procedures US Lower Extremity Venous Duplex Bilateral MD Tima [address] [place] [address] Referral ID Status Reason Start Date Expiration Date Visits V isits Requested Authorized [id number] Pending 03/08/2022 03/08/2023 [address] Scan (Routine) - Closed Specialty Diagnoses / Procedures Referred By Contact Refer red To Contact Diagnoses SOB (shortness of breath) Nelson Mcintyre Procedures CT Chest Pulmonary Embolism w Contrast MD Tima [address] [place] [address] Referral ID Status Reason Start Date Expiration Date Visits Requ ested Visits Authorized [id number] Closed 03/08/2022 03/08/2023 1 1 Reason for Visit Reason Comments Shortness of Breath Since Hysterectomy on 022 Edema Bilateral ankle swelling X 6 days Consultation (Routine) - Closed Specialty Diagnoses / Procedures Referred By Contact Refer red To Contact Diagnoses SOB (shortness of breath) Leg swelling Discoloration of skin of multiple sites of lower extremity Lory Nunez PA-C [facility] [address] [place] [id number] Phone: Referral ID Status Reason Start Date Expiration Date Visits Requ ested Visits Authorized [id number] Closed 03/08/2022 03/08/2023 1 1 Encounter Details Date Type Department Care Team Description 03/08/2022 Office Visit [facility] Nelson Mcintyre nodule (Primary Dx); [facility] Iftikhar Alfred MD SOB (shortness of breath); [address] [facility] [address] Leg swelling; [address] Discoloration of skin of multiple sites of lower extremity; [place] [address] Severe episode of recurrent major depres sive disorder, without psychotic features (H); [id number] Closed fracture of multiple ribs of both sides, initial encounter; Chronic cough Social History Tobacco Use Types Packs/Day Years [...] How often do you attend hoahaoism or buddhist services? Never 08/05/2021 Do you [...] at Date Recorded Female 11/09/2021 7:53 PM [employer] COVID-19 Exposure Response Date Recorded In the last 10 days, have you been in contact with No / Unsu re 03/11/2022 2:13 PM CDT someone who was confirmed or suspected to have Coronavirus/COVID-19? documented as of this encounter Last Filed Vital Signs Vital Sign Reading Time Taken Comments Blood Pressure 123/80 03/08/2022 2:17 PM CDT Pulse 91 03/08/2022 2:17 PM CDT Temperature 36.7 ??C (98.1 ??F) 03/08/2022 2:17 PM CDT Respiratory Rate 18 03/08/2022 2:17 PM CDT Oxygen Saturation 95% 03/08/2022 2:17 PM CDT Inhaled Oxygen Concentration - - Weight 98 kg (216 lb) 03/08/2022 2:17 PM CDT Height - - Body Mass Index 33.83 03/01/2022 9:50 AM CDT documented in this encounter Patient Instructions Patient InstructionsNelson Mcintyre MD - 03/08/2022 4:57 PM CDT Advise z pack for cough - pertussis testing pending If no improvement, advise flonase 2 sprays each nostril for at least 2 weeks to see if cough improves. Continue inhalers and nebulizers as previously prescribed Follow up with pcp in 1 week and contact pulmonary provider tomorrow with update. Rib fractures are present, likely from persistent coughing. There is also a right breast nodule of 1 cm. Advise mammogram and ultrasound through primary care assoon as possible. documented in this encounter Progress Notes Nelson Mcintyre MD - 03/08/2022 2:45 PM CDT Assessment & Plan Severe episode of recurrent major depressive disorder, without psychotic features (H) Breast nodule Closed fracture of multiple ribs of both sides, initial encounter Chronic Cough SOB (shortness of breath) Leg swelling Discoloration of skin of multiple sites of lower extremity No PE, CHF, Pulmonary infiltrates, ACS, no dvt - Referral to Acute and Diagnostic Services (Day of diagnostic / First order acute) - CBC with platelets and differential - Comprehensive metabolic panel - BNP-N terminal pro - Troponin I - CT Chest Pulmonary Embolism w Contrast; Future - D dimer, quantitative - B. pertussis/parapertussis PCR-COMPANY DOCTOR - ipratropium - albuterol 0.5 mg/2.5 mg/3 mL (DUONEB) neb solution 3 mL - EKG 12-lead complete w/read - Clinics - Bordetalla pertussis Randy IgG with Reflex - sodium chloride (PF) 0.9% PF flush 3 mL - Asymptomatic Influenza A/B & SARS-CoV2 (COVID-19) Virus PCR Multiplex Nasopharyngeal - azithromycin (ZITHROMAX) 250 MG tablet; Take 2 tablets (500 mg) by mouth daily for 1 day, THEN 1 tablet (250 mg) daily for 4 days. - fluticasone (FLONASE) 50 MCG/ACT nasal spray; [place] 2 sprays into both nostrils daily - CK total - CRP, inflammation - ESR: Erythrocyte sedimentation rate - B. PERTUSSIS ANTIBODY, IGG IMMUNOBLOT - US Lower Extremity Venous Duplex Bilateral; Future Advise z pack for cough - pertussis testing pending If no improvement, advise flonase 2 sprays each nostril for at least 2 weeks to treat for possible post nasal drip to see if cough improves. Continue ICS-LABA and Tiotropium ?psychogenic component of cough Continue inhalers and nebulizers as previously prescribed Follow up with pcp in 1 week and contact pulmonary provider with update. Rib fractures are present, likely from persistent coughing. They are subacute and healing. There is also a right breast nodule of 1 cm. Advise mammogram and ultrasound through primary care assoon as possible, within the next week. 132 minutes spent on the date of the encounter doing chart review, review of outside records, reviewof test results, interpretation of tests, patient visit, documentation and discussion with other provider(s) See Patient Instructions No follow-ups on file. Nelson Mcintyre MD [facility] HALLE Lozano is a 42 year old who presents for the following health issues HPI Shortness of Breath/Breathing Problem Onset/Duration: X 2 months Progression of Symptoms: worsening Accompanying Signs & Symptoms: SOB at rest: no SOB with activity: YES Pain with inspiration: no Cough: YES- non productive [place] tinged sputum: no Sweating: no Nausea/vomiting: YES- nausea Lightheadedness: YES intermittent Palpitations: YES- intermittent Fever/Chills: no Heartburn: no History: Family history of coagulation disorders: YES- father, DVT's. Maternal Grandmother with multiple clots Tobacco use: no Previous similar symptoms: no Precipitating factors: Related to eating: no Better with burping: no Therapies tried and outcome: Inhalers, Anti Biotics, Steroids, Nebulizer at home. None of these havehelped much. This is a 42 yo female here for ongoing cough over the past several weeks. Is being treated for presumed asthma with ICS-LABA and tiotropium. She now has more COLE without shortness of breath at rest. Occasional wheezing but less now than before. No pleurisy. No fever or chills. No cp. Describes some leg swelling bilaterally that goes down by morning. No obvious pnd or gerd symptoms. No fanny inhibitor.No smoking or vaping. No hx of asthma earlier in life but may have now. Has taken a z pack and levaquin for possible atypical infection although has not had pneumonitis on imaging. No problems sleepingwithout cough or sob then. Using albuterol multiple times per day, which helps some. No allergies. Has recent CT with air trapping but normal PFTs. Neg panel for atypical infection and hypersensitivity pneumonitis. Nl echocardiogram. Review of Systems Constitutional, HEENT, cardiovascular, pulmonary, GI, , musculoskeletal, neuro, skin, endocrine and psych systems are negative, except as otherwise noted. Objective Wt 98 kg (216 lb) LMP 12/11/2021 (Exact Date) BMI 33.83 kg/m?? Body mass index is 33.83 kg/m??. Physical Exam GENERAL: healthy, alert and no distress, coughing throughout visit EYES: Eyes grossly normal to inspection, PERRL [...] or performed during the hospital encounter of 03/08/22 US Lower Extremity Venous Duplex Bilateral Status: None Narrative EXAM: US LOWER EXTREMITY VENOUS DUPLEX BILATERAL LOCATION: [facility] DATE/TIME: 03/08/2022 4:22 PM INDICATION: b leg swelling (r>l), varicosities in left leg, ?DVT COMPARISON: None. TECHNIQUE: Venous Duplex ultrasound of bilateral lower extremities with and without compression, augmentation and duplex. Color flow and spectral Doppler with waveform analysis performed. FINDINGS: Exam includes the common femoral, femoral, popliteal veins as well as segmentally visualized deep calf veins and greater saphenous vein. RIGHT: No deep vein thrombosis. No superficial thrombophlebitis. No popliteal cyst. LEFT: No deep vein thrombosis. No superficial thrombophlebitis. No popliteal cyst. Impression IMPRESSION: 1. No deep venous thrombosis in the bilateral lower extremities. Results for orders placed or performed during the hospital encounter of 03/08/22 CT Chest Pulmonary Embolism w Contrast Status: None Narrative CT CHEST PULMONARY EMBOLISM WITH CONTRAST 03/08/2022 4:17 PM CLINICAL HISTORY: Shortness of breath. Cough. TECHNIQUE: CT angiogram chest during arterial phase injection IV contrast. 2D and 3D MIP reconstructions were performed by the biomedical engineering technologist. Dose reduction techniques were used. CONTRAST: [...] clear. No lung masses or consolidations. No pneumothorax. MEDIASTINUM/AXILLAE: No lymphadenopathy in the chest. No pericardial effusion. Bilateral breast implants are noted. Indeterminate 1 cm nodule in the right breast superiorly and medially, unchanged. CORONARY ARTERY CALCIFICATION: None. UPPER ABDOMEN: Limited views of the upper abdomen are unremarkable. MUSCULOSKELETAL: Mildly displaced healing fractures of the left fourth and fifth ribs anterolaterally. There is also a healing mildly displaced fracture of the right fifth rib anteriorly. These fractures demonstrate mild associated callus formation and are likely subacute. These fractures are new since the previous exam. Impression IMPRESSION: 1. No acute abnormality in the chest. No evidence for pulmonary embolism. 2. Subacute mildly displaced fractures of the left fourth and fifth ribs anterolaterally and of the right fifth rib anteriorly. 3. Indeterminate 1 cm nodule in the right breast superiorly and medially. Breast malignancy cannot be excluded. Clinical and mammographic correlation is recommended. KIRK LORENZANA MD Results for orders placed or performed in visit on 03/08/22 Comprehensive metabolic panel Status: Normal Result Value Ref Range Sodium 139 133 - 144 mmol/L Potassium 3.5 3.4 - 5.3 mmol/L Chloride 104 94 - 109 mmol/L Carbon Dioxide (CO2) 31 20 - 32 mmol/L Anion Gap 4 3 - 14 mmol/L Urea Nitrogen 15 7 - 30 mg/dL Creatinine 0.66 0.52 - 1.04 mg/dL Calcium 9.0 8.5 - 10.1 mg/dL Glucose 95 70 - 99 mg/dL Alkaline Phosphatase 109 40 - 150 U/L AST 24 0 - 45 U/L ALT 40 0 - 50 U/L Protein Total 7.1 6.8 - 8.8 g/dL Albumin 3.8 3.4 - 5.0 g/dL Bilirubin Total 0.6 0.2 - 1.3 mg/dL GFR Estimate >90 >60 mL/min/1.73m2 BNP-N terminal pro Status: Normal Result Value Ref Range N Terminal Pro BNP Outpatient 48 0 - 125 pg/mL Troponin I Status: Normal Result Value Ref Range Troponin I High Sensitivity <3 <54 ng/L D dimer, quantitative Status: Abnormal Result Value Ref Range D-Dimer Quantitative 0.77 (H) 0.00 - 0.50 ug/mL FEU Narrative This D-dimer assay is intended for use in conjunction with a clinical pretest probability assessment model to exclude pulmonary embolism (PE) and deep venous thrombosis (DVT) in outpatients suspected of PE or DVT. The cut-off value is 0.50 ug/mL FEU. CBC with platelets and differential Status: Abnormal Result Value Ref Range WBC Count 5.9 4.0 - 11.0 10e3/uL RBC Count 4.20 3.80 - 5.20 10e6/uL Hemoglobin 12.6 11.7 - 15.7 g/dL Hematocrit 40.7 35.0 - 47.0 % MCV 97 78 - 100 fL MCH 30.0 26.5 - 33.0 pg MCHC 31.0 (L) 31.5 - 36.5 g/dL RDW 13.7 10.0 - 15.0 % Platelet Count 328 150 - 450 10e3/uL % Neutrophils 62 % % Lymphocytes 27 % % Monocytes 9 % % Eosinophils 1 % % Basophils 1 % % Immature Granulocytes 0 % NRBCs per 100 WBC 0 <1 /100 Absolute Neutrophils 3.6 1.6 - 8.3 10e3/uL Absolute Lymphocytes 1.6 0.8 - 5.3 10e3/uL Absolute Monocytes 0.5 0.0 - 1.3 10e3/uL Absolute Eosinophils 0.1 0.0 - 0.7 10e3/uL Absolute Basophils 0.0 0.0 - 0.2 10e3/uL Absolute Immature Granulocytes 0.0 <=0.4 10e3/uL Absolute NRBCs 0.0 10e3/uL [place] pertussis Randy IgG with Reflex Status: Abnormal Result Value Ref Range B. pertussis Ab, IgG by TAMELA 4.23 (H) <=1.04 IV Asymptomatic Influenza A/B & SARS-CoV2 (COVID-19) Virus PCR Multiplex Nasopharyngeal Status: Normal Specimen: Nasopharyngeal; Swab Result Value Ref Range Influenza A PCR Negative Negative Influenza B PCR Negative Negative RSV PCR Negative Negative SARS CoV2 PCR Negative Negative Narrative Testing was performed using the Xpert Xpress CoV2/Flu/RSV Assay on the [employer] ServisXpert Instrument. This test should be ordered for the detection of SARS-CoV-2 and influenza viruses in individuals who meet clinical and/or epidemiological criteria. Test performance is unknown in asymptomatic patients. This test is for in vitro diagnostic use under the FDA EUA for laboratories certified under CLIA toperform high or moderate complexity testing. This test has not been FDA cleared or approved. A negative result does not rule out the presence of PCR inhibitors in the specimen or target RNA in concentration below the limit of detection for the assay. If only one viral target is positive but coinfection with multiple targets is suspected, the sample should be re-tested with another FDA cleared, approved, or authorized test, if coinfection would change clinical management. This test was validated by the [facility]. These laboratories are certified under the Clinical Laboratory Improvement Amendments of 1988 (CLIA-88) as qualified to perform high complexity laboratory testing. CK total Status: Abnormal Result Value Ref Range CK 269 (H) 30 - 225 U/L CRP, inflammation Status: Normal Result Value Ref Range CRP Inflammation <2.9 0.0 - 8.0 mg/L ESR: Erythrocyte sedimentation rate Status: Normal Result Value Ref Range Erythrocyte Sedimentation Rate 8 0 - 20 mm/hr B. PERTUSSIS ANTIBODY, IGG IMMUNOBLOT Status: Abnormal Result Value Ref Range B pertussis IgG Immblot FHA Positive B pertussis IgG Immunoblot PT Equivocal B pertussis IgG Immblot PT100 Negative B pertussis Ab IgG Imblot Intrp See Note (A) Negative B. pertussis/parapertussis PCR-COMPANY DOCTOR Status: Normal Specimen: Nasopharyngeal; Swab Result Value Ref Range Bordetella pertussis DNA Not Detected Not Detected Bordetella parapertussis DNA Not Detected Not Detected Narrative The [employer] Simplexa (TM) Bordetella Direct assay is a FDA-approved, real-time PCR test for the qualitative detection and differentiation of Bordetella pertussis and Bordetella parapertussis in nasopharyngeal swabs. Testing is performed by the [facility]. This test is used for clinical purposes. It should not be regarded as investigational or for research. This laboratory is certified under the Clinical Laboratory Improvement Amendmentsof 1988 (CLIA-88) as qualified to perform high complexity clinical laboratory testing. CBC with platelets and differential Status: Abnormal Narrative The following orders were created for panel order CBC with platelets and differential. Procedure Abnormality Status --------- ------ CBC with platelets and d...[[id number]] Abnormal Final result Please view results for these tests on the individual orders. documented in this encounter Plan of Treatment Upcoming Encounters Date Type Specialty Care Team Description 09/26/2022 Appointment Speech Therapy Kirk Barrera MD [address] [facility] [address] [place] [address] Anabel Chew SLP [facility] [address] [facility] [address] [place] [address] 09/27/2022 Therapy Visit Physical Therapy Luisana Watkins, PT [address] [place] [address] 09/29/2022 Virtual Visit Pain & Palliative Marilia Deluna, [facility] PhD [address] [place] [address] 09/30/2022 Office Visit Family Practice Micheal Aydee Mendez, SUPERVISOR PERSONNEL CLERKS MANAGER OF HUMAN RESOURCES [address] [place], [place] [address] 10/03/2022 Therapy Visit Physical Therapy Una Reardon, PT [address] [place] [address] 10/10/2022 Hospital Encounter Surgery Lesly Celaya MD [address] [place] [address] 10/10/2022 Office Visit Surgery Lesly Celaya MD [address] [place] [address] Ninoska Flowers PA-Ynes [address] [facility] [address] [place] [address] 10/10/2022 Surgery Surgery Lesly Celaya, EXCISION, MASSES - MD back, abdomen, [address] right lower [facility] [place] [address] 10/11/2022 Virtual Visit Clari Su, [facility] [id number] [place], [place] [address] 10/14/2022 Appointment Speech Therapy Anabel Chew, STRATEGY DIRECTOR [facility] [address] [facility] [address] [place], [place] [id number] 10/21/2022 Office Visit Pulmonology Kirk Barrera MD [address] [facility] [address] [place], [place] [address] 10/25/2022 PRE VISIT ENT Charo Burton MD Previsit [address] [place] [id number] 10/25/2022 Office Visit ENT Charo Burton MD [address] [place], [place] [address] 10/25/2022 Office Visit ENT Provider, 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 Configuration Management Advisor 10/28/2022 Appointment Speech Therapy Anabel Chew, STRATEGY DIRECTOR [address] [place], [place] [address] 11/17/2022 Appointment Speech Therapy Anabel Chew, STRATEGY DIRECTOR [address] [place], [place] [address] 12/23/2022 Office Visit Neurology Colby Yeung MD [address] [place] [address] Scheduled Procedures Name Priority Associated Diagnoses Date/Time EXCISION, MASS, TORSO Lipoma of skin and subcuta neous 10/10/2022 7:30 AM [employer] tissue documented as of this encounter Procedures Procedure Name Priority Date/Time Associated Comments Diagnosis B. PERTUSSIS ANTIBODY, Routine 03/08/2022 3:16 PM SOB (shortne ss of Results for this IGG IMMUNOBLOT CDT breath) procedure are in the results section. BORDETALLA PERTUSSIS STAT 03/08/2022 3:16 PM SOB (shortness of Results for this RANDY IGG WITH REFLEX CDT breath) procedur e are in the results section. INFLUENZA A/B & Routine 03/08/2022 3:08 PM SOB (shortness of R esults for this SARS-COV2 PCR CDT breath) procedure are in MULTIPLEX the results section. CBC WITH PLATELETS AND STAT 03/08/2022 3:08 PM SOB (shortne ss of Results for this DIFFERENTIAL CDT breath) procedure are i n the results section. BORDETELLA PERTUSSIS STAT 03/08/2022 3:08 PM SOB (shortness of Results for this PARAPERTUSSIS, PCR CDT breath) procedure are in the results section. CBC WITH PLATELETS & STAT 03/08/2022 3:08 PM SOB (shortness of Results for this DIFFERENTIAL CDT breath) procedure are i n the results section. TROPONIN I STAT 03/08/2022 3:08 PM SOB (shortness of Resu lts for this CDT breath) procedure are i n the results section. N TERMINAL PRO BNP STAT 03/08/2022 3:08 PM SOB (shortness o f Results for this OUTPATIENT CDT breath) procedure are i n the results section. ERYTHROCYTE Add-On 03/08/2022 3:08 PM SOB (shortness of Resu lts for this SEDIMENTATION RATE CDT breath) procedure are in AUTO the results section. D DIMER QUANTITATIVE STAT 03/08/2022 3:08 PM SOB (shortness of Results for this CDT breath) procedure are i n the results section. CRP INFLAMMATION Add-On 03/08/2022 3:08 PM SOB (shortness of Results for this CDT breath) procedure are i n the results section. COMPREHENSIVE STAT 03/08/2022 3:08 PM SOB (shortness of Res ults for this METABOLIC PANEL CDT breath) procedure ar e in the results section. CK TOTAL Add-On 03/08/2022 3:08 PM SOB (shortness of Resu lts for this CDT breath) procedure are i n the results section. EKG 12-LEAD COMPLETE Routine 03/08/2022 SOB (shortness of Re sults for this W/READ - CLINICS breath) procedure a re in the results section. documented in this [...] US LOWER EXTREMITY VENOUS DUPLEX BILATERAL LOCATION: [facility] DATE/TIME: 03/08/2022 4:22 PM INDICATION: b [...] LOWER EXTREMITY VENOUS DUPLEX B ILATERAL LOCATION: [facility] DATE/TIME: 03/08/2022 4:22 PM INDICATION: b [...] extremities. Nelson Mcintyre MD IMG US ORDERABLES CT Chest Pulmonary Embolism w Contrast (03/08/2022 [...] 3D MIP reconstructions were performed by the biomedical engineering technologist. Dose reduction techniques were used. CONTRAST: [...] 3D MIP reconstructions were performed by the biomedical engineering technologist. Dose reduction techniques were used. CONTRAST: [...] MD Nelson Mcintyre MD IMG CT ORDERABLES (ABNORMAL) B. PERTUSSIS ANTIBODY, IGG IMMUNOBLOT (03/08/2022 3:16 PM CDT) [facility] Method Time Signature B pertussis Positive 03/11/2022 [facility] IgG Immblot 11:45 PM CDT FHA B pertussis Equivocal 03/11/2022 [facility] IgG Immunoblot 11:45 PM CDT PT B pertussis Negative 03/11/2022 [facility] IgG Immblot 11:45 PM CDT PT100 B pertussis Ab See Note (A) Negative 03/11/2022 [facility] IgG Imblot 11:45 PM CDT Intrp Comment: IgG antibodies against Bordetella FHA de tected, which may suggest past vaccination to Bordetella p ertussis and/or infection with Bordetella species. ??Que stionable presence of IgG antibodies against Bordetella per tussis PT detected. Recommend retesting in 2-4 weeks. ??PT1 00 (Pertussis toxin 100 IU/ml) detects high concentrations o f pertussis toxin-specific antibodies associated wit h recent infections/vaccinations. ??PT (Pertussis toxin) is specific to Bordetella pertussis. ??FHA (Filament ous hemagglutinin) is an antigen common to multiple species of Bordetella. Performed By: [facility] [address] [place] [address] Merchandise Supervisor: Florence Naranjo MD Specimen Anatomical Collection Method / Collection Time Recei edil Time (Source) Location / Volume Laterality Blood VENOUS LINE / Venipuncture / 03/08/2022 3:16 2 3:59 Unknown Unknown PM CDT PM CDT Nelson Mcintyre MD LAB - BLOOD ORDERAB LES Performing Organization Address City/State/ZIP Code Phon e Number [email or web address] [place], [place] [phone] [address] [facility] [address] (ABNORMAL) B[place]et[place] pertussis Randy IgG with Reflex (03/08/2022 3:16 PM CDT) athologist Signature B. pertussis 4.23 (H) <=1.04 IV 03/10/2022 [facility], IgG by 1:24 PM CDT TAMELA Comment: Bordetella pertussis Immunoblot to foll ow. INTERPRETIVE INFORMATION: B. pertussis A b, IgG ??0.94 IV or less: ?Negative - No s ignificant level of ?detecta ble B. pertussis IgG antibody. ??0.95-1.04 IV: ? Equivocal - Re peat testing in 10-14 ?days ma y be helpful. ??1.05 IV or greater: Positive - IgG an tibody to B. ?pertuss is detected, which may indicate ?a curre nt or recent ?exposur e/immunization to B. pertussis This test was developed and its performa nce characteristics determined by [facility]. It has not been cleared or approved by the [place] Food and Drug Adminis tration. This test was performed in a CLIA certified labora tory and is intended for clinical purposes. Performed By: [facility] [address] [place] [address] Merchandise Supervisor: Florence Naranjo MD Specimen Anatomical Collection Method / Collection Time Recei edil Time (Source) Location / Volume Laterality Blood VENOUS LINE / Venipuncture / 03/08/2022 3:16 2 3:59 Unknown Unknown PM CDT PM CDT Nelson Mcintyre MD LAB - BLOOD ORDERAB LES Performing Organization Address City/[facility]/ZIP Code Phon e Number [place], [place] [phone] [address] [facility] [phone] (ABNORMAL) CK total (03/08/2022 3:08 PM CDT) P athologist Signature CK 269 (H) 30 - 225 03/08/2022 [facility] U/L 9:01 PM CDT Specimen Anatomical Collection Method / Collection Time Recei edil Time (Source) Location / Volume Laterality Blood VENOUS LINE / Venipuncture / 03/08/2022 3:08 2 3:59 Unknown Unknown PM CDT PM CDT Nelson Mcintyre MD LAB - BLOOD ORDERAB LES Performing Organization Address City/[facility]/ZIP Code Phon [place] [phone] Care Lab [address] Lab (1st floor, no room number) ESR: Erythrocyte sedimentation rate (03/08/2022 3:08 PM CDT) Patholo gist Method Time Signature Erythrocyte 8 0 - 20 03/08/2022 [facility] Sedimentation Rate mm/hr 10:21 PM CDT Specimen Anatomical Collection Method / Collection Time Recei edil Time (Source) Location / Volume Laterality Blood VENOUS LINE / Venipuncture / 03/08/2022 3:08 2 3:59 Unknown Unknown PM CDT PM CDT Nelson Mcintyre MD LAB - BLOOD ORDERAB LES Performing Organization Address City/[facility]/ZIP Code [place] [address] Care Lab [address] Lab (1st floor, no room number) CRP, inflammation (03/08/2022 3:08 PM CDT) Analysis Performed At Patho logist Time Signature CRP Inflammation <2.9 0.0 - 8.0 03/08/2022 RH LABORATOR Y mg/L 8:57 PM CDT Specimen Anatomical Collection Method / Collection Time Recei edil Time (Source) Location / Volume Laterality Blood VENOUS LINE / Venipuncture / 03/08/2022 3:08 2 3:59 Unknown Unknown PM CDT PM CDT Nelson Mcintyre MD LAB - BLOOD ORDERAB LES Performing Organization Address City/[facility]/ZIP Code [place] [address] Care Lab [address] Lab (1st floor, no room number) Asymptomatic Influenza A/B & SARS-CoV2 (COVID-19) Virus PCR Multiplex Nasopharyngeal (23:08 PM CDT) Analysis Performed At Path logist Time Signature Influenza A Negative Negative 03/08/2022 LABORATORY PCR 5:39 PM CDT Influenza B Negative Negative 03/08/2022 [facility] PCR 5:39 PM CDT RSV PCR Negative Negative 03/08/2022 LABORATORY 5:39 PM CDT SARS CoV2 PCR Negative Negative 03/08/2022 LABORATORY 5:39 PM CDT Comment: NEGATIVE: SARS-CoV-2 (COVID-19) RNA not detected, presumed negative. Specimen Anatomical Location / Collection Method Collection Yeyo e Received Time (Source) Laterality / Volume Swab NASOPHARYNGEAL Non-blood 03/08/2022 3:08 03/08/2022 4:18 STRUCTURE / Unknown Collection / PM CDT PM CDT Unknown Narrative [facility] - 03/08/2022 5:39 PM CDT Testing was performed using the Xpert Xpress CoV2/Flu/RSV Assay on the [employer] GeneXpert Instrument. This test should be ordered for the detection of SARS-CoV-2 and influenza viruses in individuals who meet clinical and/or epidemiological cri teria. Test performance is unknown in asymptomatic patients. This test is for in vitro diagnostic use under the FDA EUA for laboratories certified under CLIA to p erform high or moderate complexity testi ng. This test has not been FDA cleared or approved. A negative result does not rule out the presence of PCR inhibitors in the specimen or target RNA in concentrat ion below the limit of detection for the assay. If only one viral target is positive but coinfection with multiple targets is suspected, the sample should be re-tested with another FDA cleared, approved , or authorized test, if coinfection wou ld change clinical management. This test was validated by the [facility]. These laboratories are certified under the Clinical Laboratory Improvement Amendments of 198 8 (CLIA-88) as qualified to perform high complexity laboratory testing. Nelson Mcintyre MD LAB - MICRO GENERAL ORDERABLES Performing Organization Address City/State/ZIP Code [place] [phone] Care Lab [address] [facility] Lab (1st floor, no room number) (ABNORMAL) CBC with platelets and differential (03/08/2022 3:08 PM CDT) [facility] gist Method Time Signature WBC Count 5.9 4.0 - 03/08/2022 [facility] 11.0 4:07 PM CDT 10e3/uL RBC Count 4.20 3.80 - 03/08/2022 LABORATORY 5.20 4:07 PM CDT 10e6/uL Hemoglobin 12.6 11.7 - 03/08/2022 [facility] 15.7 g/dL 4:07 PM CDT Hematocrit 40.7 35.0 - 03/08/2022 LABORATORY 47.0 % 4:07 PM CDT MCV 97 78 - 100 03/08/2022 LABORATORY fL 4:07 PM CDT MCH 30.0 26.5 - 03/08/2022 LABORATORY 33.0 pg 4:07 PM CDT MCHC 31.0 (L) 31.5 - 03/08/2022 [facility] 36.5 g/dL 4:07 PM CDT RDW 13.7 10.0 - 03/08/2022 [facility] 15.0 % 4:07 PM CDT Platelet Count 328 150 - 450 03/08/2022 [facility] 10e3/uL 4:07 PM CDT % Neutrophils 62 % 03/08/2022 [facility] 4:07 PM CDT % Lymphocytes 27 % 03/08/2022 [facility] 4:07 PM CDT % Monocytes 9 % 03/08/2022 [facility] 4:07 PM CDT % Eosinophils 1 % 03/08/2022 [facility] 4:07 PM CDT % Basophils 1 % 03/08/2022 [facility] 4:07 PM CDT % Immature 0 % 03/08/2022 [facility] Granulocytes 4:07 PM CDT NRBCs per 100 0 <1 /100 03/08/2022 [facility] WBC 4:07 PM CDT Absolute 3.6 1.6 - 8.3 03/08/2022 [facility] Neutrophils 10e3/uL 4:07 PM CDT Absolute 1.6 0.8 - 5.3 03/08/2022 [facility] Lymphocytes 10e3/uL 4:07 PM CDT Absolute 0.5 0.0 - 1.3 03/08/2022 [facility] Monocytes 10e3/uL 4:07 PM CDT Absolute 0.1 0.0 - 0.7 03/08/2022 [facility] Eosinophils 10e3/uL 4:07 PM CDT Absolute 0.0 0.0 - 0.2 03/08/2022 [facility] Basophils 10e3/uL 4:07 PM CDT Absolute 0.0 <=0.4 03/08/2022 [facility] Immature 10e3/uL 4:07 PM CDT Granulocytes Absolute NRBCs 0.0 10e3/uL 03/08/2022 [facility] 4:07 PM CDT Specimen Anatomical Collection Method / Collection Time Recei edil Time (Source) Location / Volume Laterality Blood VENOUS LINE / Venipuncture / 03/08/2022 3:08 3:59 Unknown Unknown PM CDT PM CDT Nelson Mcintyre MD LAB - BLOOD ORDERAB LES Performing Organization Address City/State/ZIP Code Ph[place] [address] Care Lab [address] [facility] Lab (1st floor, no room number) B. pertussis/parapertussis PCR-COMPANY DOCTOR (03/08/2022 3:08 PM CDT) [facility] [employer]Guide Method Time Signature Bordetella Not Detected Not Detected 03/09/2022 [facility] pertussis DNA 9:56 AM CDT LABORATORY Comment: A negative result does not rule out the presence of PCR inhibitors or Bordetella pertussis DNA in concentratio ns below the limit of detection of the assay. Bordetella Not Detected Not Detected 03/09/2022 9:56 [facility] parapertussis DNA AM CDT Comment: A negative result does not rule out the presence of PCR inhibitors or Bordetella parapertussis DNA in concentr ations below the limit of detection for the assay. Specimen Anatomical Location / Collection Method Collection Yeyo e Received Time (Source) Laterality / Volume Swab NASOPHARYNGEAL Non-blood 03/08/2022 3:08 03/08/2022 3:59 STRUCTURE / Unknown Collection / PM CDT PM CDT Unknown Narrative [facility] - 03/09/2022 9:56 AM C DT The [employer] Molecular Simplexa (TM) Bor detella Direct assay is a FDA-approved, real-time PCR test for the qualitative d etection and differentiation of Bordetella pertussis and Bordetella parapertussis i n nasopharyngeal swabs. Testing is performed by the [facility] of [facility]. This test is used for clinical purposes. It should no t be regarded as investigational or for research. This laboratory is certified u nder the Clinical Laboratory Improvement Amendments of 1988 (CLIA-88) as qualifie d to perform high complexity clinical laboratory testing. Nelson Mcintyre MD LAB - MICRO GENERAL ORDERABLES Performing Organization Address City/State/ZIP Code Phon e Number [facility]ORATORY [facility] [place] [address] Diag. Lab [address] [facility], Room [address]297 (ABNORMAL) D dimer, quantitative (03/08/2022 3:08 PM CDT) [facility] NileGuide Method Time Signature D-Dimer 0.77 (H) 0.00 - 03/08/2022 LABORATORY Quantitative 0.50 4:19 PM CDT ug/mL FEU Specimen Anatomical Collection Method / Collection Time Recei edil Time (Source) Location / Volume Laterality Blood VENOUS LINE / Venipuncture / 03/08/2022 3:08 2 3:59 Unknown Unknown PM CDT PM CDT Narrative [facility] - 03/08/2022 4:19 PM CDT This D-dimer assay is intended for use i n conjunction with a clinical pretest probability assessment model to exclude pulmonary embolism (PE) and deep venous thrombosis (DVT) in outpatients suspecte d of PE or DVT. The cut-off value is 0.50 ug/mL FEU. Nelson Mcintyre MD LAB - BLOOD ORDERAB LES Performing Organization Address City/[facility]/ZIP Code [place] [phone] Care Lab [address] Lab (1st floor, no room number) Troponin I (03/08/2022 3:08 PM CDT) P athologist Signature Troponin I High <3 <54 ng/L 03/08/2022 LABORATORY Sensitivity 4:26 PM CDT Comment: This Troponin-I result was obta ined using a Siemens Dimension Marlin High Sensitivity Troponin-I assay (TNIH). Eff ective 10/05/21, nine labs/sites in the [facility] switched from a Siemens Marlin Contemporary Troponin I assay (CTNI) to a Siemens Marlin High-Sensitivity Troponi n I assay (TNIH). Specimen Anatomical Collection Method / Collection Time Recei edil Time (Source) Location / Volume Laterality Blood VENOUS LINE / Venipuncture / 03/08/2022 3:08 2 3:59 Unknown Unknown PM CDT PM CDT Nelson Mcintyre MD LAB - BLOOD ORDERAB LES Performing Organization Address City/[facility]/ZIP Code [place] [phone] Care Lab [address] Lab (1st floor, no room number) BNP-N terminal pro (03/08/2022 3:08 PM CDT) athologist Signature N Terminal Pro 48 0 - 125 03/08/2022 [facility] BNP Outpatient pg/mL 4:26 PM CDT Comment: Reference range shown and results flagge d as abnormal are for the outpatient, non acute settings. Establishing a baseline value for each individual patient is useful for follow-up. Suggested inpatient cut points for confi rming diagnosis of CHF in an acute setting are: >450 pg/mL (age 18 to less than 50) >900 pg/mL (age 50 to less than 75) >1800 pg/mL (75 yrs and older) An inpatient or emergency department NT- proPBNP <300 pg/mL effectively rules out acute CHF, with 99% negative predictive value. Specimen Anatomical Collection Method / Collection Time Recei edil Time (Source) Location / Volume Laterality Blood VENOUS LINE / Venipuncture / 03/08/2022 3:08 2 3:59 Unknown Unknown PM CDT PM CDT Nelson Mcintyre MD LAB - BLOOD ORDERAB LES Performing Organization Address City/State/ZIP Code [place] [address] Care Lab [address] Lab (1st floor, no room number) Comprehensive metabolic panel (03/08/2022 3:08 PM CDT) athologist Signature Sodium 139 133 - 144 03/08/2022 LABORATORY mmol/L 4:24 PM CDT Potassium 3.5 3.4 - 5.3 03/08/2022 LABORATORY mmol/L 4:24 PM CDT Chloride 104 94 - 109 03/08/2022 LABORATORY mmol/L 4:24 PM CDT Carbon Dioxide 31 20 - 32 03/08/2022 LABORATORY (CO2) mmol/L 4:24 PM CDT Anion Gap 4 3 - 14 03/08/2022 LABORATORY mmol/L 4:24 PM CDT Urea Nitrogen 15 7 - 30 03/08/2022 LABORATORY mg/dL 4:24 PM CDT Creatinine 0.66 0.52 - 03/08/2022 LABORATORY 1.04 mg/dL 4:24 PM CDT Calcium 9.0 8.5 - 10.1 03/08/2022 LABORATORY mg/dL 4:24 PM CDT Glucose 95 70 - 99 03/08/2022 LABORATORY mg/dL 4:24 PM CDT Alkaline 109 40 - 150 03/08/2022 LABORATORY Phosphatase U/L 4:24 PM CDT AST 24 0 - 45 U/L 03/08/2022 [facility] 4:24 PM CDT ALT 40 0 - 50 U/L 03/08/2022 LABORATORY 4:24 PM CDT Protein Total 7.1 6.8 - 8.8 03/08/2022 [facility] g/dL 4:24 PM CDT Albumin 3.8 3.4 - 5.0 03/08/2022 LABORATORY g/dL 4:24 PM CDT Bilirubin Total 0.6 0.2 - 1.3 03/08/2022 LABORATORY mg/dL 4:24 PM CDT GFR Estimate >90 >60 03/08/2022 LABORATORY mL/min/1.7 4:24 PM CDT 3m2 Comment: Effective November 02, 2021 eGF Rcr in adults is calculated using the 2020 CKD-EPI creatinine equation which includ es age and gender (Yulia et al., NEJM, DOI: 10.1056/HOWPmw4618805) Specimen Anatomical Collection Method / Collection Time Recei edil Time (Source) Location / Volume Laterality Blood VENOUS LINE / Venipuncture / 03/08/2022 3:08 2 3:59 Unknown Unknown PM CDT PM CDT Nelson Mcintyre MD LAB - BLOOD ORDERAB LES Performing Organization Address City/State/ZIP Code [place] [address] Care Lab [address] Lab (1st floor, no room number) EKG 12-lead complete w/read - Clinics (03/08/2022) Narrative This result has an attachment that is no t available. Nelson Mcintyre MD ECG ORDERABLES documented in this encounter Visit Diagnoses Diagnosis Breast nodule - Primary Other (abnormal) findings on radiologica l examination of breast SOB (shortness of breath) Shortness of breath Leg swelling Swelling of limb Discoloration of skin of multiple sites of lower extremity Other symptoms involving skin and integu mentary tissues Severe episode of recurrent major depres sive disorder, without psychotic features (H) Closed fracture of multiple ribs of both sides, initial encounter Chronic cough Cough SOB (shortness of breath) Shortness of breath Leg swelling Swelling of limb Lipoma of skin and subcutaneous tissue Lipoma of other skin and subcutaneous ti ssue documented in this encounter Administered Medications Inactive Administered Medications - up to 3 most recent administrations Medication Order MAR Action Action Date Dose Rate Site ipratropium - albuterol 0.5 mg/2.5 Given 03/08/2022 3:32 PM CDT 3 mLs mg/3 mL (DUONEB) neb solution 3 mL 3 mL, Nebulization, ONCE, On Mon03/08/22 at 1530, For 1 dose sodium chloride (PF) 0.9% PF flush 3 mL Given 03/08/2022 3:33 PM CDT 3 mLs 3 mL, Intravenous, EVERY 1 MIN PRN, line flush, post meds or blood draw, Starting on Mon03/08/22 at 1532 Given 03/08/2022 3:31 PM CDT 3 mLs documented in this encounter Additional Health Concerns Infection Onset Date Last Indicated Resolved Time Rule Out COVID-19 03/08/2022 03/08/2022 03/08/2022 4:1 9 PM CDT Rule Out Pertussis 03/08/2022 03/08/2022 03/09/2022 9: 56 AM CDT Assessment Noted Time PHQ-9 Depression Total Score: 20 03/02/2022 7:02 AM CD T documented as of this encounter Care Teams Bag Worker Relationship Specialty Start Date End Date Aydee Burton, PCP - General Nurse Practitioner - 05/17/21 SUPERVISOR PERSONNEL CLERKS MANAGER OF HUMAN RESOURCES Family [address] [place], [place] [phone] Aydee Burton, Assigned PCP 04/28/21 SUPERVISOR PERSONNEL CLERKS MANAGER OF HUMAN RESOURCES [address] [place], [place] [phone] Louisa Hood, Assigned Neuroscience 07/11/21 SUPERVISOR PERSONNEL CLERKS MANAGER OF HUMAN RESOURCES Provider [address] [place] [address] [phone] Se Levy, Lead Fmd Teacher 08/05/21 05/12/22 BENCH GRINDERClari Ordonez Pharmacist Pharmacist 08/06/21 06/07/22 JORDAN Banks [address] [place] [address] [place], Assigned Sleep 08/01/21 Angel Turcios, Provider [address] [place], [place] [phone] Lesly Celaya MD Assigned Surgical 09/05/21 [address] [facility] Provider [place], [place] [phone] [facility] 09/[facility]/21 Worker Ramses Mcpherson Assigned OBGYN 11/07/21 MD Onesimo Provider [address] [place], [place] [phone] Kirk Barrera MD Critical Care 01/24/[address] [place] [address] Kirk Barrera, Tone Pulmonology 02/06/[address] [place] [phone] Lesvia Stanley EP Cardiac Rehabilitation 03/03/22 03/03/23 [facility] Therapist [address] [place] [address] Marilia Deluna, PhD Assigned Behavioral 02/20/22 [address] [facility] Provider [place], [place] [phone] Niyah Decker, [facility] Pharmacist Pharmacist 03/07/22 [address] [facility] [address] [place] [address] Clari Poole, Pharmacist Pharmacist 03/07/22 06/15/22 [facility] [address] [place] [address] Mago Swift, [facility] Lead Fmd Teacher Bench Scientist - 08/05/21 Clinical documented as of this encounter
--- OUTSIDE RECORDS SUMMARY | 2022-09-21 04:08 | XMS_ITS | Encounter Summary ---
:1980 Author Organization [place] Address [address] [place] [address] Care Team Providers Name Role Phone Aydee Burton INSURANCE SPECIAL AGENT NEW ACCOUNTS CLERK Primary Care Provider [phone] Aydee Burton INSURANCE SPECIAL AGENT NEW ACCOUNTS CLERK Unavailable [phone] Louisa Hood INSURANCE SPECIAL AGENT NEW ACCOUNTS CLERK Unavailable [phone] Se Levy [facility] Unavailable Unavailable Clari Ruiz [facility] Unavailable Angel Hannah MD Unavailable Lesly Celaya MD Unavailable Tawana Patel MA Unavailable Unavailable Ramses Mcpherson MD Unavailable [phone] Obdulio Barrera MD Unavailable [phone] Obdulio Barrera MD Unavailable [phone] Lesvia Stanley Unavailable Marilia Deluna PhD Unavailable Niyah Decker [facility] Unavailable Clari Poole [facility] Unavailable Mago Swift [facility] Unavailable Encounter Details Date Type Department Care Team Description 03/07/2022 Travel Social History Tobacco Use Types Packs/Day [...] How often do you attend judaism or advent services? Never 08/05/2021 Do you belong to [...] at Date Recorded Female 11/09/2021 7:53 PM LOG CUT OFF SAWYER COVID-19 Exposure Response Date Recorded In the last 10 days, have you been in contact with No / Unsu re 03/07/2022 9:39 AM CDT someone who was confirmed or suspected to have Coronavirus/COVID-19? documented as of this encounter Plan of Treatment Upcoming Encounters Date Type Specialty Care Team Description 09/26/2022 Appointment Speech Obdulio Medina MD [address] [place] [address] Anabel Chew, BREASTFEEDING EDUCATOR [facility] [address] [facility] [address] [place], [place] [address] 09/27/2022 Therapy Visit Physical Therapy Luisana Watkins, PT [address] [place] [address] 09/29/2022 Virtual Visit Pain & Palliative Marilia Deluna, [facility] PhD [address] [place] [address] 09/30/2022 Office Visit Family Practice Aydee Burton, INSURANCE SPECIAL AGENT NEW ACCOUNTS CLERK [address] [place] [address] 10/03/2022 Therapy Visit Physical Therapy Una Reardon, PT [address] [place] [address] 10/10/2022 Hospital Encounter Surgery Lesly Celaya MD [address] [place] [address] 10/10/2022 Office Visit Surgery Lesly Celaya MD [address] [place] [address] Ninoska Flowers PA-C [address] [place] [address] 10/10/2022 Surgery Surgery Lesly Celaya, EXCISION, MASSES - MD back, abdomen, [address] right lower [facility] [place] [address] 10/11/2022 Virtual Visit Clari Su, [place] [phone] [address] 10/14/2022 Appointment Speech Therapy Anabel Chew, BREASTFEEDING EDUCATOR [address] [address] 10/21/2022 Office Visit Pulmonology Obdulio Barrera MD [address] [address] 10/25/2022 PRE VISIT ENT Charo Burton MD Previsit [address] [place] [address] 10/25/2022 Office Visit ENT Charo Burton MD [address] [place], [place] [address] 10/25/2022 Office Visit ENT Provider, 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 Sheet Sewer 10/28/2022 Appointment Speech Therapy Anabel Chew, BREASTFEEDING EDUCATOR [address] [phone] 11/17/2022 Appointment Speech Therapy Anabel Chew, BREASTFEEDING EDUCATOR [address] 844875 12/23/2022 Office Visit Neurology Colby Yeung MD [address] [place] [id number] Scheduled Procedures Name Priority Associated Diagnoses Date/Time EXCISION, MASS, TORSO Lipoma of skin and subcuta neous 10/10/2022 7:30 AM LOG CUT OFF SAWYER tissue documented as of this encounter Visit Diagnoses Not on filedocumented in this encounter Additional Health Concerns Assessment Noted Time PHQ-9 Depression Total Score: 20 03/02/2022 7:02 AM CD T documented as of this encounter Care Teams Almond Paste Mixer Relationship Specialty Start Date End Date Aydee Burton, PCP - General Nurse Practitioner - 05/17/21 INSURANCE SPECIAL AGENT NEW ACCOUNTS CLERK Family [address] [place], [place] [phone] Aydee Burton, Assigned PCP 04/28/21 INSURANCE SPECIAL AGENT NEW ACCOUNTS CLERK [address] [place], [place] [phone] Louisa Hood, Assigned Neuroscience 07/11/21 INSURANCE SPECIAL AGENT NEW ACCOUNTS CLERK Provider [address] [place] [address] Se Levy, Lead Supervisor Records Change 08/05/21 05/12/22 Clari Francois Pharmacist Pharmacist 08/06/21 06/07/22 JocelynCOX BRANSON [address] [place], [place] [phone] [place], Assigned Sleep 08/01/21 Angel Turcios, Provider [address] [place], [place] [address] Lesly Celaya MD Assigned Surgical 09/05/21 [address] Provider [place], [place] [phone] Tawana Patel MA [facility] 09/30/21 Worker Ramses Mcpherson Assigned OBGYN 11/07/21 MD Onesimo Provider [address] [place] [address] Obdulio Barrera MD Critical Care 01/24/[address] [place] [address] Obdulio Barrera, Assigned Pulmonology 02/06/22 Provider [address] [phone] Lesvia Stanley EP Cardiac Rehabilitation 03/03/22 03/03/23 [facility] Therapist [address] [place] [id number] Marilia Deluna, PhD Assigned Behavioral 02/20/22 [address] [facility] Health Provider [place], [place] [address] Niyah Decker, [facility] Pharmacist Pharmacist 03/07/22 [address] [facility] [address] [place], [place] [address] Clari Poole, Pharmacist Pharmacist 03/07/22 06/15/22 [facility] [address] [facility] [address] [address] [place] [phone] Mago Swift, [facility] Lead Supervisor Records Change [employer] Supervisor - 08/05/21 Clinical documented as of this encounter
--- OUTSIDE RECORDS SUMMARY | 2022-09-21 04:08 | XMS_ITS | Encounter Summary ---
:1980 Author Organization [place] Address [address] [place] [address] Care Team Providers Name Role Phone Aydee Burton STRIKE PLANNING APPLICATIONS STRIP TANK TENDER Primary Care Provider [phone] Aydee Burton STRIKE PLANNING APPLICATIONS STRIP TANK TENDER Unavailable [phone] Louisa Hood STRIKE PLANNING APPLICATIONS STRIP TANK TENDER Unavailable [phone] Se Levy [facility] Unavailable Unavailable Clari Ruiz [facility] Unavailable Angel Hannah MD Unavailable Lesly Celaya MD Unavailable Tawana Patel MA Unavailable Unavailable Ramses Mcpherson MD Unavailable [phone] Obdulio Barrera MD Unavailable [phone] Obdulio Barrera MD Unavailable [phone] Lesvia Stanley Unavailable Marilia Deluna PhD Unavailable Niyah Decker [facility] Unavailable Clari Poole [facility] Unavailable Mago Swift [facility] Unavailable Encounter Details Date Type Department Care Team Description 03/07/2022 Michelle Murray [facility] Aydee Burton APRN [place] STRIP TANK TENDER [address] [facility] [address]151 [place] [address] [place] [address] [phone] (Wo rk) Social History Tobacco Use Types [...] How often do you attend restorationism or religion services? Never 08/05/2021 Do you [...] at Date Recorded Female 11/09/2021 7:53 PM PROTOTYPE CARPENTER COVID-19 Exposure Response Date Recorded In the last 10 days, have you been in contact with No / Unsu re 03/07/2022 9:39 AM CDT someone who was confirmed or suspected to have Coronavirus/COVID-19? documented as of this encounter Miscellaneous Notes Telephone Encounter - Jazmyn Alatorre RN - 03/08/2022 12:58 PM CDT Prescription approved per [facility] Refill Protocol. Jazmyn Griffiths RN, BSN documented in this encounter Plan of Treatment Upcoming Encounters Date Type Specialty Care Team Description 09/26/2022 Appointment Speech Therapy Obdulio Barrera MD 420 [facility] 276 [place], [place] [address] Anabel Chew, SCOOP OPERATOR [place] [phone] [facility] 396 [place], [place] [address]195 09/27/2022 Therapy Visit Physical Therapy Luisana Watkins, PT 2[address] [place] [address] 09/29/2022 Virtual Visit Pain & Palliative [facility] PhD [address] [place], [place] 414407 09/30/2022 Office Visit Family Practice Aydee Burton, STRIKE PLANNING APPLICATIONS STRIP TANK TENDER [address] [place] [address] [phone] 10/03/2022 Therapy Visit Physical Therapy Una Reardon, PT 2155 [place] [address] 10/10/2022 Hospital Encounter Surgery Lesly Celaya MD [address] [place], [place] [address] 10/10/2022 Office Visit Surgery Lesly Celaya MD [address] [place], [place] [address] Ninoska Flowers PA-C [address] [place], [place] [address] 10/10/2022 Surgery Surgery Lesly Celaya, EXCISION, MASSES - MD back, abdomen, [address] extremity [place], [place] [phone] 10/11/2022 Virtual Visit Pharm Clari Stoll, [place] [phone] [address] 620544 10/14/2022 Appointment Speech Therapy Anabel Chew, SCOOP OPERATOR [address] 439[address] 10/21/2022 Office Visit Pulmonology Obdulio Barrera MD 420 [facility] 276 [place], [place] [address] 10/25/2022 PRE VISIT ENT Charo Burton MD Previsit [address] [place] [address] 831345 10/25/2022 Office Visit Charo Carter MD [address] [place] [address] 015395 10/25/2022 Office Visit ENT Provider, 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 Drilling And Production Superintendent 10/28/2022 Appointment Speech Therapy Anabel Chew, SCOOP OPERATOR [address] 079615 11/17/2022 Appointment Speech Therapy Anabel Chew SCOOP OPERATOR [address], [place] [address] 12/23/2022 Office Visit Neurology Colby Yeung MD [address] 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 Lipoma of skin and subcutaneous tissue Lipoma of other skin and subcutaneous ti ssue documented in this encounter Additional Health Concerns Assessment Noted Time PHQ-9 Depression Total Score: 20 03/02/2022 7:02 AM CD T documented as of this encounter Care Teams Configuration Engineer Relationship Specialty Start Date End Date Aydee Burton, PCP - General Nurse Practitioner - 05/17/21 STRIKE PLANNING APPLICATIONS STRIP TANK TENDER Family [address] [place] [address] [phone] Aydee Burton, Assigned PCP 04/28/21 STRIKE PLANNING APPLICATIONS STRIP TANK TENDER [address] [place] [address] [phone] Louisa Hood, Assigned Neuroscience 07/11/21 STRIKE PLANNING APPLICATIONS STRIP TANK TENDER Provider 500 [place], [place] [phone] Se Levy, Lead Quality Control Microbiology Supervisor 08/05/21 05/12/22 Clari Francois Pharmacist Pharmacist 08/06/21 06/07/22 Jocelyn [facility] [facility] F[address] [place], [place] [phone] [place], Assigned Sleep 08/01/21 Angel Turcios, Provider [address] [place], [place] [phone] Lesly Celaya MD Assigned Surgical 09/05/21 [address] [facility] [place] [address] Tawana Patel MA [facility] 09/30/21 Worker Ramses Mcpherson Assigned OBGYN 11/07/21 MD Onesimo Provider [address] [place], [place] [address] Obdulio Barrera MD Critical Care 01/24/22 MD 420 [facility] 276 [place], [place] [phone] Obdulio Barrera, Assigned Pulmonology 02/06/22 MD Provider 420 [facility] 276 [place], [place] 50[address] Lesvia Stanley, GHADA Cardiac Rehabilitation 03/03/22 03/03/23 [facility] Therapist [address] [place], [place] [address] Marilia Deluna, PhD Assigned Behavioral 02/20/22 79[address] [facility] [place] [address] Niyah Decker, [facility] Pharmacist Pharmacist 03/07/22 420 [facility] 812 [place] [address] Clari Poole, Pharmacist Pharmacist 03/07/22 06/15/22 [facility] 3305 [facility] [place] [phone] Mago Swift, [facility] Lead Quality Control Microbiology Supervisor Bobbin Cleaner - 08/05/21 Clinical documented as of this encounter
--- OUTSIDE RECORDS SUMMARY | 2022-09-21 04:08 | XMS_ITS | Encounter Summary ---
:1980 Author Organization [place] Address [address] [facility] [place] [address] Care Team Providers Name Role Phone Aydee Burton HEAD OF HUMAN RESOURCES BEAM MACHINE OPERATOR Primary Care Provider [phone] Aydee Burton APRN BEAM MACHINE OPERATOR Unavailable [phone] Louisa Hood HEAD OF HUMAN RESOURCES BEAM MACHINE OPERATOR Unavailable [phone] Se Levy STRATEGIC MARKETING MANAGER Unavailable Unavailable Clari Ruiz [facility] Unavailable [phone] Angel Hannah MD Unavailable Lesly Celaya MD Unavailable Tawana Patel MA Unavailable Unavailable Ramses Mcpherson MD Unavailable [phone] Obdulio Barrera MD Unavailable [phone] Obdulio Barrera MD Unavailable [phone] Lesvia Stanley Unavailable Marilia Deluna PhD Unavailable Mago Swift BRACELET AND BROOCH MAKER Unavailable Encounter Details Date Type Department Care Team Description 03/03/2022 Travel Social History Tobacco Use Types Packs/Day [...] How often do you attend denominational or shinto services? Never 08/05/2021 Do you [...] at Date Recorded Female 11/09/2021 7:53 PM KNOCKOUT MACHINE OPERATOR COVID-19 Exposure Response Date Recorded In the last 10 days, have you been in contact with No / Unsu re 03/03/2022 3:55 PM CDT someone who was confirmed or suspected to have Coronavirus/COVID-19? documented as of this encounter Plan of Treatment Upcoming Encounters Date Type Specialty Care Team Description 09/26/2022 Appointment Speech Therapy Obdulio Barrera MD 420 [facility] 276 [place] [address] Anabel Chew, LEAD SYSTEMS ENGINEER [place] 907856 [facility] 396 [place] [address] 09/27/2022 Therapy Visit Physical Therapy Luisana Watkins, PT 2155 [place] [address] 09/29/2022 Virtual Visit Pain & Palliative Marilia Deluna, [facility] PhD [address] [place] [address] 09/30/2022 Office Visit Family Practice Aydee Burton, HEAD OF HUMAN RESOURCES BEAM MACHINE OPERATOR [address] [place], [place] [address]82 10/03/2022 Therapy Visit Physical Therapy Una Reardon, PT 2155 [place] [phone] 10/10/2022 Hospital Encounter Surgery eLsly Celaya MD [address] [place], [place] [address] 10/10/2022 Office Visit Surgery Lesly Celaya MD [address] [place] [address] Ninoska Flowers, PA-C [address] [facility] 300 [place] [address] 10/10/2022 Surgery Surgery Lesly Celaya, EXCISION, MASSES - back, abdomen, [address] right lower [facility] extremity [place], [place] [phone] 10/11/2022 Virtual Visit Clari Su, [facility] 8540 [facility] F282 [place] [address] 10/14/2022 Appointment Speech Therapy Anabel Chew, LEAD SYSTEMS ENGINEER [facility] [place] [address] 10/21/2022 Office Visit Pulmonology Obdulio Barrera MD 420 [facility] 276 [place] [address] 10/25/2022 PRE VISIT ENT Charo Burton MD Previsit [address] [place] [address]645 10/25/2022 Office Visit ENT Charo Burton MD [address] [place] [address] 018285 10/25/2022 Office Visit ENT Provider, Jeannette 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 Stem Lead Former 10/28/2022 Appointment Speech Therapy Anabel Chew, LEAD SYSTEMS ENGINEER [address] [address] 11/17/2022 Appointment Speech Therapy Anabel Chew, LEAD SYSTEMS ENGINEER [address] [address] 12/23/2022 Office Visit Neurology Colby Yeung MD [address] [place] [address] Scheduled Procedures Name Priority Associated Diagnoses Date/Time EXCISION, MASS, TORSO Lipoma of skin and subcuta neous 10/10/2022 7:30 AM KNOCKOUT MACHINE OPERATOR tissue documented as of this encounter Visit Diagnoses Not on filedocumented in this encounter Additional Health Concerns Assessment Noted Time PHQ-9 Depression Total Score: 20 03/02/2022 7:02 AM CD T documented as of this encounter Care Teams Psychiatric Social Worker Relationship Specialty Start Date End Date Aydee Burton, PCP - General Nurse Practitioner - 05/17/21 HEAD OF HUMAN RESOURCES BEAM MACHINE OPERATOR Family [address] [place] [address] [phone] Aydee Burton, Assigned PCP 04/28/21 HEAD OF HUMAN RESOURCES BEAM MACHINE OPERATOR [address] [place], [place] [address]152 Louisa Hood, Assigned Neuroscience 07/11/21 HEAD OF HUMAN RESOURCES BEAM MACHINE OPERATOR Provider 500 [place], [place] 715605 Se Levy, Lead Primer Expeditor And Drier 08/05/21 05/12/22 Clari Francois Pharmacist Pharmacist 08/06/21 06/07/22 [facility] [address] [place], [place] [address] [place], Assigned Sleep 08/01/21 Angel Turcios, Provider [address] [place], [place] [address] Lesly Celaya MD Assigned Surgical 09/05/21 [address] Provider [place], [place] [phone] Tawana Patel [facility] 09/30/21 Worker Ramses Mcpherson Assigned OBGYN 11/07/21 MD Onesimo Provider [address] [place], [place] 7[address]67 Obdulio Barrera MD Critical Care 01/24/[address] 227915 Obdulio Barrera, Assigned Pulmonology 02/06/[address] 970315 Lesvia Stanley, GHADA Cardiac Rehabilitation 03/03/22 03/03/23 [facility] Therapist [address] [place] [address] Marilia Deluna, PhD Assigned Behavioral 02/20/22 12[address] [facility] Health Provider [place] 979667 Mago Swift BRACELET AND BROOCH MAKER Lead Primer Expeditor And Drier Information Systems Audit Manager - 08/05/21 Clinical documented as of this encounter
--- OUTSIDE RECORDS SUMMARY | 2022-09-21 04:08 | XMS_ITS | Encounter Summary ---
:1980 Author Organization [place] Address [address] [place] [address] Care Team Providers Name Role Phone Aydee Burton BATHHOUSE KEEPER REGULATORY AND COMPLIANCE TECHNICIAN Primary Care Provider [phone] Aydee Burton BATHHOUSE KEEPER REGULATORY AND COMPLIANCE TECHNICIAN Unavailable [phone] Louisa Hood BATHHOUSE KEEPER REGULATORY AND COMPLIANCE TECHNICIAN Unavailable [phone] Se Levy [facility] Unavailable Unavailable Clari Ruiz [facility] Unavailable Angel Hannah MD Unavailable Lesly Celaya MD Unavailable Tawana Patel MA Unavailable Unavailable Ramses Mcpherson MD Unavailable [phone] Obdulio Barrera MD Unavailable [phone] Obdulio Barrera MD Unavailable [phone] Lesvia Stanley Unavailable Marilia Deluna PhD Unavailable Niyah Decker [facility] Unavailable Clari Poole [facility] Unavailable Mago Swift [facility] Unavailable Encounter Details Date Type Department Care Team Description 03/08/2022 Travel Social History Tobacco Use Types Packs/Day [...] How often do you attend buddhism or caodaism services? Never 08/05/2021 Do you [...] at Date Recorded Female 11/09/2021 7:53 PM ADZING AND BORING MACHINE HELPER COVID-19 Exposure Response Date Recorded In the last 10 days, have you been in contact with No / Unsu re 03/08/2022 2:16 PM CDT someone who was confirmed or suspected to have Coronavirus/COVID-19? documented as of this encounter Plan of Treatment Upcoming Encounters Date Type Specialty Care Team Description 09/26/2022 Appointment Speech Therapy Obdulio Barrera MD [address] [place] [address] Anabel Chew, CLINICAL STAFF RN [facility] 516 [facility] 396 [place], [place] [address] 09/27/2022 Therapy Visit Physical Therapy Luisana Watkins, PT [address] [place] [address] 09/29/2022 Virtual Visit Pain & Palliative Marilia Deluna, [facility] PhD [address] [place] [address] 09/30/2022 Office Visit Family Practice Aydee Burton, BATHHOUSE KEEPER REGULATORY AND COMPLIANCE TECHNICIAN 4151 [place] [address] 10/03/2022 Therapy Visit Physical Therapy Una Reardon, PT 2156 [place] [address] 10/10/2022 Hospital Encounter Surgery Lesly Celaya MD [address] [place] [address] 10/10/2022 Office Visit Surgery Lesly Celaya MD [address] [place] [address] Ninoska Flowers PA-C [address] [place] [address] 10/10/2022 Surgery Surgery Lesly Celaya, EXCISION, MASSES - MD back, abdomen, [address] right lower [facility] [place] [address] 10/11/2022 Virtual Visit Clari Su, [place] [phone] [address] [address] 10/14/2022 Appointment Speech Therapy Anabel Chew, CLINICAL STAFF RN [address] 749705 10/21/2022 Office Visit Pulmonology Obdulio Barrera MD [address] 934805 10/25/2022 PRE VISIT ENT Charo Burton MD Previsit [address] [place] [address] 610385 10/25/2022 Office Visit ENT Charo Burton MD 909 [place], [place] 034845 10/25/2022 Office Visit ENT Provider, 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 Hand Spinner 10/28/2022 Appointment Speech Therapy Anabel Chew, CLINICAL STAFF RN [address] 382585 11/17/2022 Appointment Speech Therapy Anabel Chew, CLINICAL STAFF RN [address] 835275 12/23/2022 Office Visit Neurology Colby Yeung MD [address] [place] [id number] Scheduled Procedures Name Priority Associated Diagnoses Date/Time EXCISION, MASS, TORSO Lipoma of skin and subcuta neous 10/10/2022 7:30 AM ADZING AND BORING MACHINE HELPER tissue documented as of this encounter [...] documented as of this encounter Care Teams Lacing Presser Relationship Specialty Start Date End Date Aydee Burton, PCP - General Nurse Practitioner - 05/17/21 BATHHOUSE KEEPER REGULATORY AND COMPLIANCE TECHNICIAN Family [address] [place] [address] [phone] Aydee Burton, Assigned PCP 04/28/21 BATHHOUSE KEEPER REGULATORY AND COMPLIANCE TECHNICIAN [address] [place] [address] Louisa Hood, Assigned Neuroscience 07/11/21 BATHHOUSE KEEPER REGULATORY AND COMPLIANCE TECHNICIAN Provider 500 [place], [place] [phone] Se Levy, Lead Panel Gluer 08/05/21 05/12/22 Clari Francois Pharmacist Pharmacist 08/06/21 06/07/22 [facility] [address] [place], [place] [phone] [place], Assigned Sleep 08/01/21 Angel Turcios, Provider [address] [place], [place] [phone] Lesly Celaya MD Assigned Surgical 09/05/21 [address] Provider [place], [place] [phone] Tawana Patel MA [facility] 09/30/21 Worker Ramses Mcpherson Assigned OBGYN 11/07/21 MD Onesimo Provider [address] [place], [place] [phone] Obdulio Barrera MD Critical Care 01/24/22 420 [facility] 276 [place], [place] [address] Obdulio Barrera, Assigned Pulmonology 02/06/22 MD Provider 420 [facility] 276 [place], [place] [address]295 Lesvia Stanley, GHADA Cardiac Rehabilitation 03/03/22 03/03/23 [facility] Therapist [address] [place] [place] [id number] Marilia Deluna, PhD Assigned Behavioral 02/20/22 [address] [facility] [place] [address] Niyah Decker, [facility] Pharmacist Pharmacist 03/07/22 420 [facility] 812 [place], [place] [address] Clari Poole, Pharmacist Pharmacist 03/07/22 06/15/22 [facility] [address] [facility] [address] [place] [id number] Mago Swift, [facility] Lead Panel Gluer Office Helper Clerical - 08/05/21 Clinical documented as of this encounter
--- OUTSIDE RECORDS SUMMARY | 2022-09-21 04:09 | XMS_ITS | Encounter Summary ---
:1980 Author Organization [place] Address [address] [facility] [place] [address] Care Team Providers Name Role Phone Aydee Burton GROUP UNDERWRITER DRY WALL NAILER Primary Care Provider [phone] Aydee Burton APRN DRY WALL NAILER Unavailable [phone] Louisa Hood GROUP UNDERWRITER DRY WALL NAILER Unavailable [phone] Se Levy MARKETING DEVELOPMENT SPECIALIST Unavailable Unavailable Clari Ruiz [facility] Unavailable [phone] Angel Hannah MD Unavailable Lesly Celaya MD Unavailable Tawana Patel MA Unavailable Unavailable Ramses Mcpherson MD Unavailable [phone] Obdulio Barrera MD Unavailable [phone] Obdulio Barrera MD Unavailable [phone] Marilia Deluna PhD Unavailable Mago Swift LEAD WAREHOUSE ASSOCIATE Unavailable Encounter Details Date Type Department Care Team Description 02/25/2022 Travel Social History Tobacco Use Types Packs/Day [...] How often do you attend mandaen or confucianist services? Never 08/05/2021 Do you [...] at Date Recorded Female 11/09/2021 7:53 PM DATA DEVELOPER COVID-19 Exposure Response Date Recorded In the last 10 days, have you been in contact with No / Unsu re 02/24/2022 1:26 PM CDT someone who was confirmed or suspected to have Coronavirus/COVID-19? documented as of this encounter Plan of Treatment Upcoming Encounters Date Type Specialty Care Team Description 09/26/2022 Appointment Speech Therapy Obdulio Barrera MD 420 [facility] 276 [place] [address] Anabel Chew SLP [facility] 516 [facility] 396 [place] [address] 09/27/2022 Therapy Visit Physical Therapy Luisana Watkins, PT 2155 [place] [address] 09/29/2022 Virtual Visit Pain & Palliative Marilia Deluna, [facility] PhD [address] [place], [place] 3[address]77 09/30/2022 Office Visit Family Practice Aydee Burton, GROUP UNDERWRITER DRY WALL NAILER 4151 [place] [address] 10/03/2022 Therapy Visit Physical Therapy Una Reardon, PT 2155 [place] [address] 10/10/2022 Hospital Encounter Surgery Lesly Celaya MD [address] [place] [address] 10/10/2022 Office Visit Surgery Lesly Celaya MD [address] [place] [address] Ninoska Flowers, PA-Ynes [address] [place] [address] 10/10/2022 Surgery Surgery Lesly Celaya, EXCISION, MASSES - MD back, abdomen, [address] right lower [place] [address] 10/11/2022 Virtual Visit Clari Su, [facility] [address] [place] [phone] [place], [place] [address] 10/14/2022 Appointment Speech Therapy Anabel Chew, MANAGER CLINICAL APPLICATIONS [facility] 516 [facility] 396 [place], [place] [phone] 10/21/2022 Office Visit Pulmonology Obdulio Barrera MD 420 [facility] 276 [place], [place] [address] 10/25/2022 PRE VISIT ENT Charo Burton MD Previsit [address] [place] [address]72995 10/25/2022 Office Visit ENT Charo Burton MD 909 [place], [place] 4[address] 10/25/2022 Office Visit ENT Provider, 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 Docketing Specialist 10/28/2022 Appointment Speech Therapy Anabel Chew, MANAGER CLINICAL APPLICATIONS [address] [place], [place] [address] 11/17/2022 Appointment Speech Therapy Anabel Chew, MANAGER CLINICAL APPLICATIONS [address] [place], [place] [address] 12/23/2022 Office Visit Neurology Colby Yeung MD [address] [place] [id number] Scheduled Procedures Name Priority Associated Diagnoses Date/Time EXCISION, MASS, TORSO Lipoma of skin and subcuta neous 10/10/2022 7:30 AM DATA DEVELOPER tissue documented as of this encounter Visit Diagnoses Not on filedocumented in this encounter Additional Health Concerns Assessment Noted Time PHQ-9 Depression Total Score: 15 2022 7:02 AM CD T documented as of this encounter Care Teams Cataract Lens Generator Relationship Specialty Start Date End Date Aydee Burton, PCP - General Nurse Practitioner - 05/17/21 GROUP UNDERWRITER DRY WALL NAILER Family [address] [place] [address] [phone] Aydee Burton, Assigned PCP 04/28/21 GROUP UNDERWRITER DRY WALL NAILER 4151 [place], [place] [phone] ErwinLouisa Grisel, Assigned Neuroscience 07/11/21 GROUP UNDERWRITER DRY WALL NAILER Provider 500 [place], [place] [phone] Se Levy, Lead Gill Net Stringer 08/05/21 05/12/22 MARKETING DEVELOPMENT SPECIALISTClari Ordonez Pharmacist Pharmacist 08/06/21 06/07/22 [facility] [address] [place] [address] [place], Assigned Sleep 08/01/21 Angel Turcios, Provider [address] [place] [address] Lesly Celaya MD Assigned Surgical 09/05/21 [address] Provider [place], [place] [phone] Tawana Patel MA [facility] 09/30/21 Worker Ramses Mcpherson Assigned OBGYN 11/07/21 MD Onesimo Provider [address] [place], [place] [phone] Obdulio Barrera MD Critical Care 01/24/22 420 [facility] 276 [place], [place] [phone] Obdulio Barrera, Assigned Pulmonology 02/06/[address] [phone] Marilia Deluna, PhD Assigned Behavioral 02/20/22 [address] [facility] Provider [place], [place] [phone] Mago Swift [facility] Lead Gill Net Stringer Quantitative Manager - 08/05/21 Clinical documented as of this encounter
--- OUTSIDE RECORDS SUMMARY | 2022-09-21 04:09 | XMS_ITS | Encounter Summary ---
:1980 Author Organization [place] Address [address] [facility] [place] [address] Care Team Providers Name Role Phone Aydee Burton HEALTH CLUB ATTENDANT EASTERN PHILOSOPHY PROFESSOR Primary Care Provider [phone] Aydee Burton APRN EASTERN PHILOSOPHY PROFESSOR Unavailable [phone] Louisa Hood HEALTH CLUB ATTENDANT EASTERN PHILOSOPHY PROFESSOR Unavailable [phone] Se Levy OVERAGE SHORTAGE AND DAMAGE CLERK Unavailable Unavailable Clari Ruiz [facility] Unavailable [phone] Angel Hannah MD Unavailable Lesly Celaya MD Unavailable Tawana Patel MA Unavailable Unavailable Ramses Mcpherson MD Unavailable [phone] Obdulio Barrera MD Unavailable [phone] Obdulio Barrera MD Unavailable [phone] Marilia Deluna PhD Unavailable Mago Swift FIRER TUNNEL KILN Unavailable Encounter Details Date Type Department Care Team Description 02/24/2022 Travel Social History Tobacco Use Types Packs/Day [...] How often do you attend moravian or mandaeism services? Never 08/05/2021 Do you [...] at Date Recorded Female 11/09/2021 7:53 PM ACTUARIAL DIRECTOR COVID-19 Exposure Response Date Recorded In the last 10 days, have you been in contact with No / Unsu re 02/24/2022 1:26 PM CDT someone who was confirmed or suspected to have Coronavirus/COVID-19? documented as of this encounter Plan of Treatment Upcoming Encounters Date Type Specialty Care Team Description 09/26/2022 Appointment Speech Therapy Obdulio Barrera MD [address] [facility] [address] [place] [address] [facility] [address] [facility] 396 [place] [address] 09/27/2022 Therapy Visit Physical Therapy Luisana Watkins, PT [address] [place] [address] 09/29/2022 Virtual Visit Pain & Palliative Marilia Deluna, [facility] PhD [address] [place], [place] [address] 09/30/2022 Office Visit Family Practice Aydee Burton, HEALTH CLUB ATTENDANT EASTERN PHILOSOPHY PROFESSOR [address] [place] [address] 10/03/2022 Therapy Visit Physical Therapy Una Reardon, PT [address] [place] [address] 10/10/2022 Hospital Encounter Surgery Lesly Celaya MD [address] [place] [address] 10/10/2022 Office Visit Surgery Lesly Celaya MD [address] [place] [address] Ninoska Floewrs, PA-Ynes [address] [place] [address] 10/10/2022 Surgery Surgery Lesly Celaya, EXCISION, MASSES - MD back, abdomen, [address] right [place] [address] 10/11/2022 Virtual Visit Clari Su, [facility] [address] [id number] [place], [place] [address] 10/14/2022 Appointment Speech Therapy Anabel Chew, MACHINE OR MACHINERY MECHANIC [facility] [address] [facility] 396 [place], [place] [phone] 10/21/2022 Office Visit Pulmonology Obdulio Barrera MD [address] [facility] [address] [place], [place] [address] 10/25/2022 PRE VISIT ENT Cahro Burton MD Previsit [address] [place] [address] 10/25/2022 Office Visit ENT Charo Burton MD [address] [place], [place] [address] 10/25/2022 Office Visit ENT Provider, 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 Geriatric Case Manager 10/28/2022 Appointment Speech Therapy Anabel Chew, MACHINE OR MACHINERY MECHANIC [address] [place], [place] [address] 11/17/2022 Appointment Speech Therapy Anabel Chew, MACHINE OR MACHINERY MECHANIC [address] [place], [place] [address] 12/23/2022 Office Visit Neurology Colby Yeung MD [address] [id number] Scheduled Procedures Name Priority Associated Diagnoses Date/Time EXCISION, MASS, TORSO Lipoma of skin and subcuta neous 10/10/2022 7:30 AM ACTUARIAL DIRECTOR tissue documented as of this encounter Visit Diagnoses Not on filedocumented in this encounter Additional Health Concerns Assessment Noted Time PHQ-9 Depression Total Score: 15 2022 7:02 AM CD T documented as of this encounter Care Teams Word Processing Operator Relationship Specialty Start Date End Date Aydee Burton, PCP - General Nurse Practitioner - 05/17/21 HEALTH CLUB ATTENDANT EASTERN PHILOSOPHY PROFESSOR Family [address] [place] [phone] Aydee Burton, Assigned PCP 04/28/21 HEALTH CLUB ATTENDANT EASTERN PHILOSOPHY PROFESSOR [address] [place], [place] [phone] ErwinLouisa Grisel, Assigned Neuroscience 07/11/21 HEALTH CLUB ATTENDANT EASTERN PHILOSOPHY PROFESSOR Provider [address] [place], [place] [phone] Se Levy, Lead Journeyman Electrician Pv Installer 08/05/21 05/12/22 OVERAGE SHORTAGE AND DAMAGE CLERKClari Ordonez Pharmacist Pharmacist 08/06/21 06/07/22 [facility] [address] [place] [address] [place], Assigned Sleep 08/01/21 Angel Turcios, Provider [address] [place] [address] Lesly Celaya MD Assigned Surgical 09/05/21 [address] Provider [place], [place] [phone] Tawana Patel MA [facility] 09/30/21 Worker Ramses Mcpherson Assigned OBGYN 11/07/21 MD Onesimo Provider [address] [place], [place] [phone] Obdulio Barrera MD Critical Care 01/24/22 [address] [facility] 276 [place], [place] [phone] Obdulio Barrera, Assigned Pulmonology 02/06/[address] [id number] Marilia Deluna, PhD Assigned Behavioral 02/20/22 [address] [facility] Provider [place], [place] [phone] Mago Swift [facility] Lead Journeyman Electrician Pv Installer Direct Care Specialist - 08/05/21 Clinical documented as of this encounter
--- OUTSIDE RECORDS SUMMARY | 2022-09-21 04:09 | XMS_ITS | Encounter Summary ---
:1980 Author Organization [place] Address [address] [place] [address] Care Team Providers Name Role Phone Aydee Burton CLOSING SUPERVISOR COPRA SAMPLER Primary Care Provider [phone] Aydee Burton CLOSING SUPERVISOR COPRA SAMPLER Unavailable [phone] Louisa Hood CLOSING SUPERVISOR COPRA SAMPLER Unavailable [phone] Se Levy [facility] Unavailable Unavailable Clari Ruiz [facility] Unavailable [phone] Angel Hannah MD Unavailable Lesly Celaya MD Unavailable Tawana Patel MA Unavailable Unavailable Ramses Mcpherson MD Unavailable [phone] Obdulio Barrera MD Unavailable [phone] Obdulio Barrera MD Unavailable [phone] Lesvia Stanley Unavailable Marilia Deluna PhD Unavailable Niyah Decker [facility] Unavailable Clari Poole [facility] Unavailable Lesvia Stanley EP Unavailable Mago Swift [facility] Unavailable Reason for Visit Reason Onset Date Comments Refill Request 02/09/2022 Albuterol Inhaler Encounter Details Date Type Department Care Team Description 02/09/2022 Refill [facility] Aydee Burton, Refill Request [facility] [place] CLOSING SUPERVISOR COPRA SAMPLER (Albuterol Inhaler ) [address] [place] [address] [place], [place] [phone] (Wo rk) [address] [phone] Social History Tobacco Use Types Packs/Day Years [...] How often do you attend methodist or temple services? Never 08/05/2021 Do you belong to [...] Date Recorded Female 11/09/2021 7:53 PM FOOD PRODUCTS TESTER COVID-19 Exposure Response Date Recorded In the last 10 days, have you been in contact with No / Unsu re 03/15/2022 8:01 AM CDT someone who was confirmed or suspected to have Coronavirus/COVID-19? documented as of this encounter Miscellaneous Notes Telephone Encounter - Keren Dong RN - 02/09/2022 3:06 PM CDT Routing refill request to provider for review/approval because: Act Keren oDng RN Telephone Encounter - Ziyad Frausto - 02/09/2022 8:56 AM CDT Reason for Call: Medication or medication refill: Do you use a [facility]? Name of the pharmacy and phone [facility] for the [facility] Name of the medication requested: Albuterol Inhaler Other request: Patient calling stating that her inhaler broke this morning as she tried to use it and is in desperate need of a new one. Can we leave a detailed message on this number? YES Phone number patient can be reached at: Cell number on file: Telephone Information: Best Time: Any Call taken on 02/09/2022 at 8:56 AM by Ziyad Frausto documented in this encounter Plan of Treatment Upcoming Encounters Date Type Specialty Care Team Description 09/26/2022 Appointment Speech Therapy Obdulio Barrera MD [address] [facility] [address] [place], [place] [address] Anabel Chew, [address] 8[address] [facility] [address] [place], [place] [address] 09/27/2022 Therapy Visit Physical Therapy Luisana Watkins, PT [address] [place] [address] 09/29/2022 Virtual Visit Pain & Palliative Marilia Deluna, [facility] PhD [address] [place], [place] [address] 09/30/2022 Office Visit Family Practice Micheal Aydee Bridgeste, CLOSING SUPERVISOR COPRA SAMPLER [address] [place], [place] [phone] 10/03/2022 Therapy Visit Physical Therapy Una Reardon, PT [address] [place] [phone] 10/10/2022 Hospital Encounter Surgery Lesly Celaya MD [address] [place], [place] [phone] 10/10/2022 Office Visit Surgery Lesly Celaya MD [address] [place], [place] [phone] Ninoska Flowers PA-Ynes [address] [facility] [address] [place] [address] 10/10/2022 Surgery Surgery Lesly Celaya, EXCISION, MASSES - MD back, abdomen, [address] right lower [facility] extremity [place], [place] [phone] 10/11/2022 Virtual Visit Clari Su, [facility] [address] [facility] [address] [place], [place] [address] 10/14/2022 Appointment Speech Therapy Anabel Chew, LOOM OPERATOR APPRENTICE [facility] [address] [facility] [address] [place], [place] [address] 10/21/2022 Office Visit Pulmonology Obdulio Barrera MD 420 [facility] [address] [place] [address] 10/25/2022 PRE VISIT ENT Charo Burton MD Previsit [address] [place] [address] 10/25/2022 Office Visit ENT Charo Burton MD [address] [place] [address] 10/25/2022 Office Visit ENT Provider, Jeannette 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 Player Manager 10/28/2022 Appointment Speech Therapy Anabel Chew, LOOM OPERATOR APPRENTICE [address] [place] [address] 11/17/2022 Appointment Speech Therapy Anabel Chew, LOOM OPERATOR APPRENTICE [address] [place] [address] 12/23/2022 Office Visit Neurology Colby Yeung MD [address] [place] [address] Scheduled Procedures Name Priority Associated Diagnoses Date/Time EXCISION, MASS, TORSO Lipoma of skin and subcuta neous 10/10/2022 7:30 AM FOOD PRODUCTS TESTER tissue documented as of this encounter Visit Diagnoses Diagnosis Reduced chest expansion on inspiration Other symptoms involving respiratory sys tem and chest Wheezing Lipoma of skin and subcutaneous tissue Lipoma [...] documented as of this encounter Care Teams Shank Sorter Relationship Specialty Start Date End Date Aydee Burton, PCP - General Nurse Practitioner - 05/17/21 CLOSING SUPERVISOR COPRA SAMPLER Family [address] [place], [place] [address] Aydee Burton, Assigned PCP 04/28/21 CLOSING SUPERVISOR COPRA SAMPLER [address] [place], [place] [phone] Louisa Hood, Assigned Neuroscience 07/11/21 CLOSING SUPERVISOR COPRA SAMPLER Provider [address] [place], [place] [phone] Se Levy, Lead Horticultural Services Supervisor 08/05/21 05/12/22 RN ADVANCEDClari Ordonez Pharmacist Pharmacist 08/06/21 06/07/22 [facility] [address] [place], [place] [phone] [place], Assigned Sleep 08/01/21 Angel Turcios, Provider [address] [place] [address] Lesly Celaya MD Assigned Surgical 09/05/21 [address] Provider [place], [place] [address] Tawana Patel MA [facility] 09/30/21 Worker Ramses Mcpherson Assigned OBGYN 11/07/21 MD Onesimo Provider [address] [place] [address] Obdulio Barrera MD Critical Care 01/24/22 [address] [facility] [address] [place], [place] [address] Obdulio Barrera, Assigned Pulmonology 02/06/22 MD Provider 420 [facility] [address] [place] [address] Lesvia Stanley, GHADA Cardiac Rehabilitation 03/03/22 03/03/23 [facility] Therapist [address] [address] Marilia Deluna, PhD Assigned Behavioral 02/20/22 [address] [facility] [place] [address] Niyah Decker, [facility] Pharmacist Pharmacist 03/07/22 [address] [facility] [address] [place] [address] Clari Poole, Pharmacist Pharmacist 03/07/22 06/15/22 [facility] [address] [place] [address] Lesvia Stanley, GHADA Cardiac Rehabilitation 03/17/22 03/17/23 [facility] Therapist [address] [address] Mago Swift, [facility] Lead Horticultural Services Supervisor Energy Sales Broker - 08/05/21 Clinical documented as of this encounter
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
--- OUTSIDE RECORDS SUMMARY | 2022-09-21 04:09 | XMS_ITS | Encounter Summary ---
:1980 Author Organization [place] Address [address] [place] [address] Care Team Providers Name Role Phone Aydee Burton ENGINEER BOOSTER AND EXHAUSTER ASSISTANT COOK Primary Care Provider [phone] Aydee Burton APRN ASSISTANT COOK Unavailable [phone] Louisa Hood ENGINEER BOOSTER AND EXHAUSTER ASSISTANT COOK Unavailable [phone] Se Levy CASKET TRIMMER Unavailable Unavailable Clari Ruiz [facility] Unavailable [phone] Angel Hannah MD Unavailable Lesly Celaya MD Unavailable Tawana Patel MA Unavailable Unavailable Ramses Mcpherson MD Unavailable [phone] Obdulio Barrera MD Unavailable [phone] Obdulio Barrera MD Unavailable [phone] Marilia Deluna PhD Unavailable Mago Swift PRINCIPAL MILITARY ANALYST Unavailable Reason for Referral Consultation (Routine: Next available opening) - Closed Specialty Diagnoses / Procedures Referred By Contact Refer red To Contact Diagnoses Bilateral occipital neuralgia Chronic tension-type headache, not intractable Chronic myofascial pain Lucas Anyaa [facility] MD Romel [address] [place] [address] [place], [place] [phone] Referral ID Status Reason Start Date Expiration Date Visits Requ ested Visits Authorized [id number] Closed 02/24/2022 02/24/2023 1 1 Encounter Details Date Type Department Care Team Description 02/24/2022 Office Visit [facility] Lucas Anaya Bilwalter teral occipital neuralgia (Primary Dx); Pain Management MD Romel Chronic tension-type headache, not intra ctable; [place] [id number] [place] [address] Chronic myofascial pain [address] [place] [address] [address] [place], [place] [id number] [phone] Social History Tobacco Use Types Packs/Day Years [...] How often do you attend religious or quaker services? Never 08/05/2021 Do you belong to [...] at Date Recorded Female 11/09/2021 7:53 PM HEARING AID ASSISTANT COVID-19 Exposure Response Date Recorded In the last 10 days, have you been in contact with No / Unsu re 02/24/2022 1:26 PM CDT someone who was confirmed or suspected to have Coronavirus/COVID-19? documented as of this encounter Last Filed Vital Signs Vital Sign Reading Time Taken Comments Blood Pressure 110/73 02/24/2022 1:36 PM CDT Pulse 111 02/24/2022 1:36 PM CDT Temperature - - Respiratory Rate - - Oxygen Saturation 97% 02/24/2022 1:36 PM CDT Inhaled Oxygen Concentration - - Weight - - Height - - Body Mass Index - - documented in this encounter Patient Instructions Patient InstructionsLucas Anaya MD - 02/24/2022 1:41 PM CDT I ordered a referral to the neurology clinic at [facility] to evaluate and treat your headaches. If this is scheduled out far, then call the number below and we can do the occipital injections and trigger point injections to help with your pain until you see them. Continue working with Marilia. No medication changes today. Take gabapentin 400mg four times daily as ordered. Take Lucas shea DO [facility] Number: [phone] Call with any questions about your care and for scheduling assistance. Calls are returned Monday through Monday between 8 AM and 4:30 PM. We usually get back to you within2 business days depending on the issue/request. If we are prescribing your medications: For opioid medication refills, call the clinic or send a Zscalerhart message 7 days in advance. Please include: Name of requested medication Name of the pharmacy. For non-opioid medications, call your pharmacy directly to request a refill. Please allow 3-4 days to be processed. Per [place] State Law: All controlled substance prescriptions must be filled within 30 days of being written. For those controlled substances allowing refills, pickup must occur within 30 days of last fill. We believe regular attendance is miranda to your success in our program! Any time you are unable to keep your appointment we ask that you call us at least 24 hours in advance to cancel.This will allow us to offer the appointment time to another patient. Multiple missed appointments may lead to dismissal from the clinic. documented in this encounter Progress Notes Lucas Anaya MD - 02/24/2022 1:30 PM CDT [facility] Date of visit: 02/24/22 Assessment: Marta Hill is a 42 year old with past medical history including: PTSD, Anxiety, Depression, who presents for evaluation and treatment of the following chronic pain conditions: ?? 1. Chronic headaches: Marta has had a long standing history of chronic neck pain and headaches and has been diagnosed with occipital neuralgia at [facility] years ago. Currently they are experiencing daily holocephalic headaches with mixed features of occipital neuralgia and tension type headaches that flare-up with activity, specifically at work. They are neurologically intact on exam with exception of mildly reduced sensation in the left hand compared to the right. TPI/ONB completed with moderate improvement. Symptoms worsened again in the past 2-3 weeks. ?? 2. Chronic bilateral upper back and neck pain: These symptoms have also been present for years and exacerbate her headaches. On exam their cervical ROM is mildly reduced in side bending and rotation tothe right. They have trigger points in the periscapular muscles which are worse on the right side aswell. TPI completed with moderate improvement. ?? 3. Left arm pain: They sustained a radial head fracture of the left elbow in dec 2020 and are scheduled for surgery to have screws removed. ?? Mental Health - the patient's mental health concerns, specifically anxiety, stress, depression, affect her experience of pain and contribute to her clinically significant distress. ? Plan: The following recommendations were given to the patient. Diagnosis, treatment options, risks, benefits, and alternatives were discussed, and all questions were answered. The patient expressed understanding of the plan for management. ?? I am recommending a multidisciplinary treatment plan to help this patient better manage her pain. This includes: ?? 1. Physical Therapy: Discussed that working with our chronic pain therapist would be beneficial for their pain but would like to wait until their elbow surgery and hysterectomy are completed. Consider work-hardening PT after completing chronic pain PT. 2. Clinical Health Pain Psychologist: Pain phd referral placed. 1. Therapy can help reduce physical and psychosocial triggers or reinforcers of pain by adapting thoughts, feelings and behaviors to reduce symptoms and increase quality of life. Evidence indicates that the practice of relaxation, meditation, and mindfulness techniques can significantly affect pain levels and overall well being. 3. Self Care Recommendations: Gentle progressive exercise that does not increase pain - gradually increase daily walking program. Take mini breaks - 5 minutes of mindfullness a couple times a day. 1. Yoga exercises provided. 4. Diagnostic Studies: consider cervical MRI if neck pain is persistent. 5. Referrals: neurology headache clinic at [facility]. 6. Medication Management: 1. Gabapentin 400mg QID 2. Continue duloxetine 120mg qhs 3. Methocarbamol 500-750mg TID prn. 4. Advised not to take more than 1 type of nsaid during the same day. 7. Further procedures recommended: TPI and bilateral ONB can be repeated every 3+ months. 8. Follow up: 2 months. DO Terri Zheng [facility] Chief complaint: Interval history: Marta Hill is a 41 year old female last seen by me on December 2021. Since her last visit, Marta Hill reports: - Entire head hurts, neck and jaw, left arm and right knee - Pain in face is a burning sharp pain - Not working trying to go back to but can't go back with out a doctor not clearing her because of her asthma, seeing pulm next week. Diagnosed with asthma after they developed a persistent cough. - Last had b/l occipital never blocks on 12/01/2021 helped with neck and head pain. States that symptoms have returned in the past 2 weeks. - Face pain flares make her cry, having flares everyday. Pain scores: Pain intensity on average is 4 on a scale of 0-10. Pain Treatments: 1. Medications: Current pain medications: -Gabapentin 400mg QID - helps a little -Lamictal -Buproprion 300mg daily -Seroquel -Duloxetine 120mg hs -Ibuprofen 400-600mg q6h prn Previous pain medications: -Voltaren and lidocaine gel - nh 2. Physical Therapy: - helped arm/elbow, no help for neck/face TENS unit: didn't help neck pain 3. Pain psychology: hasn't tried 4. Surgery: -radial head fixation 2020 5. Injections: -TPI and onb in nov 2021 by myself - moderate relief for approx 2 months -They had occipital nerve blocks years ago - helped for a few weeks -Botox injections years ago - made headaches worse - [facility] 6. Alternative Therapies: Chiropractic: hasn't tried Acupuncture: hasn't tried ?? Side Effects: no side effect Medications: Current Outpatient Medications Medication Sig Dispense [...] dyspnea or wheezing 90 mL 5 ??? ascorbic acid (VITAMIN C) 250 MG CHEW chewable tablet Take 750 mg by mouth daily ??? budesonide-formoterol (SYMBICORT) 160-4.5 MCG/ACT Inhaler Inhale [...] Bedtime 2 tablets - 120mg total ??? gabapentin (NEURONTIN) 400 MG capsule 4 times daily ??? ipratropium - albuterol 0.5 mg/2.5 mg/3 [...] 1 capsule (20 mg) by mouth daily for 14 days Decrease down to once daily for 2 weeks then stop 14 capsule 0 ??? ondansetron (ZOFRAN-ODT) 4 MG ODT tab Take 1 tablet (4 mg) by mouth every 8 hours as needed for nausea 20 tablet 0 ??? QUEtiapine (SEROQUEL) 100 MG tablet Take 1 tablet (100 mg) by mouth as needed 30 tablet 2 ??? QUEtiapine (SEROQUEL) 200 MG tablet Take 200 mg by mouth At Bedtime ??? tiotropium (SPIRIVA) 18 MCG inhaled capsule Inhale 1 capsule (18 mcg) into the lungs daily 30 capsule 3 ??? vitamin D3 (CHOLECALCIFEROL) 50 mcg (2000 units) tablet Take 1 tablet by mouth daily ??? benzonatate (TESSALON) 100 MG capsule Take 1 capsule (100 mg) by mouth 3 times daily as needed for cough (Patient not taking: No sig reported) 15 capsule 0 ??? fluconazole (DIFLUCAN) 100 MG tablet 1st day take 200mg, then 100mg for 14 day course. (Patient not taking: Reported on 02/24/2022) 14 tablet 0 Medical History: any changes in medical history since they were last seen? No Review of Systems: The 14 system ROS was reviewed from the intake questionnaire, and is positive for: neck pain, headaches, paresthesias Physical Exam: Blood pressure 110/73, pulse 111, last menstrual period 12/11/2021, SpO2 97 %, not currently . General: NAD, pleasant Gait: Normal MSK exam: Cervical ROM is mildly reduced in ext/rot bilaterally. Pain with ext/rot bilaterally. Painwith cervical paraspinal, trapezius, levator and rhomboid palpation bilaterally. Strength is 5/5 andsymmetric in the upper and lower extremities. I saw and examined the patient with the Pain Fellow/Resident. I have reviewed and agree with the resident's note and plan of care and made changes and corrections directly to the body of the note. TIME SPENT: BY FELLOW/RESIDENT ALONE 25 MIN BY MYSELF WITHOUT THE FELLOW/RESIDENT 20 MIN BILLING TIME DOCUMENTATION: The total TIME spent on this patient on the date of the encounter/appointment was 35 minutes. TOTAL TIME includes: Time spent preparing to see the patient (reviewing records and tests) Time spent face to face (or over the phone) with the patient Time spent ordering tests, medications, procedures and referrals Time spent Referring and communicating with other healthcare professionals Time spent documenting clinical information in [facility] DO Booker Pulliam Pain Management documented in this encounter Nursing Notes Ashleigh Martinez - 02/24/2022 1:30 PM CDT PEG Score 11/10/2021 12/14/2021 02/24/2022 PEG Total Score 7 7 7.33 documented in this encounter Plan of Treatment Upcoming Encounters Date Type Specialty Care Team Description 09/26/2022 Appointment Speech Therapy Obdulio Barrera MD [address] [place] [id number] Anabel Chew, CASH APPLICATIONS COORDINATOR [facility] [address] [facility] [address] [facility] [address] [place], [place] [address] 09/27/2022 Therapy Visit Physical Therapy Luisana Watkins, PT [address] [place] [address] 09/29/2022 Virtual Visit Pain & Palliative Marilia Deluna, [facility] PhD [address] [place] [address] 09/30/2022 Office Visit Family Practice Aydee Burton, ENGINEER BOOSTER AND EXHAUSTER ASSISTANT COOK [address] [place] [address] 10/03/2022 Therapy Visit Physical Therapy Una Reardon, PT [address] [place] [address] 10/10/2022 Hospital Encounter Surgery Lesly Celaya MD [address] [place] [address] 10/10/2022 Office Visit Surgery Lesly Celaya MD [address] [place] [address] Ninoska Flowers PA-C [address] [place] [address] 10/10/2022 Surgery Surgery Lesly Celaya, EXCISION, MASSES - MD back, abdomen, [address] right lower [facility] [address] 10/11/2022 Virtual Visit Clari Su, [facility] [address] [address] 10/14/2022 Appointment Speech Therapy Anabel Chew, CASH APPLICATIONS COORDINATOR [address] [address] 10/21/2022 Office Visit Pulmonology Obdulio Barrera MD 420 [facility] 276 [place], [place] [address] 10/25/2022 PRE VISIT ENT Charo Burton MD Previsit [address] [place] [address] 10/25/2022 Office Visit ENT Charo Burton MD [address] [place] [address]25[address] 10/25/2022 Office Visit ENT Provider, 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 Milk Of Lime Slaker 10/28/2022 Appointment Speech Therapy Anabel Chew, CASH APPLICATIONS COORDINATOR [address] [address] 11/17/2022 Appointment Speech Therapy Anabel Chew, CASH APPLICATIONS COORDINATOR [address] [address] 12/23/2022 Office Visit Neurology Colby Yeung MD [address] [place] [address] Scheduled Procedures Name Priority Associated Diagnoses Date/Time EXCISION, MASS, TORSO Lipoma of skin and subcuta neous 10/10/2022 7:30 AM HEARING AID ASSISTANT tissue Scheduled Referrals Name Type Priority Associated Diagnoses Order S chedule Adult Neurology Referral Routine: Next Bilateral occipital Expe cted: Tool Die Maker Referral available opening neuralgia 02/24/2022 Chronic tension-type (Approx imate), headache, not Expires: intractable 02/24/2023 Chronic myofascial pain documented as of this encounter Visit Diagnoses Diagnosis Bilateral occipital neuralgia - Primary Other syndromes affecting cervical regio n Chronic tension-type headache, not intra ctable Chronic tension type headache Chronic myofascial pain Mylagia and myositis, unspecified Lipoma of skin and subcutaneous tissue Lipoma of other skin and subcutaneous ti ssue documented in this encounter Additional Health Concerns Assessment Noted Time PHQ-9 Depression Total Score: 15 2022 7:02 AM CD T documented as of this encounter Care Teams Tailings Dam Laborer Relationship Specialty Start Date End Date Aydee Burton, PCP - General Nurse Practitioner - 05/17/21 ENGINEER BOOSTER AND EXHAUSTER ASSISTANT COOK Family [address] [place] [address] [phone] Aydee Burton, Assigned PCP 04/28/21 ENGINEER BOOSTER AND EXHAUSTER ASSISTANT COOK [address] [place] [address] [phone] Louisa Hood, Assigned Neuroscience 07/11/21 ENGINEER BOOSTER AND EXHAUSTER ASSISTANT COOK Provider [address] [place] [address] Se Levy, Lead Programming Coordinator 08/05/21 05/12/22 Clari Francois Pharmacist Pharmacist 08/06/21 06/07/22 Jocelyn [facility] [address] [place], [place] [phone] [place], Assigned Sleep 08/01/21 Angel Turcios, Provider [address] [place] [address] Lesly Celaya MD Assigned Surgical 09/05/21 [address] Provider [place], [place] [phone] Tawana Patel MA [facility] 11/18/21 Worker Ramses Mcpherson Assigned OBGYN 11/07/21 MD Onesimo Provider [address] [place], [place] [phone] Obdulio Barrera MD Critical Care 01/24/[address] [address] Obdulio Barrera, Assigned Pulmonology 02/06/22 MD Provider [address] [place] [address] [phone] Marilia Deluna, PhD Assigned Behavioral 02/20/22 [address] [facility] Provider [place], [place] [phone] Mago Swift, [facility] Lead Programming Coordinator Back Sewer - 08/05/21 Clinical documented as of this encounter
--- OUTSIDE RECORDS SUMMARY | 2022-09-21 04:09 | XMS_ITS | Encounter Summary ---
:1980 Author Organization [facility] Address [address] [facility] [place] [address] Care Team Providers Name Role Phone Aydee Burton HORTICULTURE SUPERVISOR INTERNAL AFFAIRS COMMANDER Primary Care Provider [phone] Aydee Burton APRN INTERNAL AFFAIRS COMMANDER Unavailable [phone] Louisa Hood HORTICULTURE SUPERVISOR INTERNAL AFFAIRS COMMANDER Unavailable [phone] Se Levy DERRICK BARGE OPERATOR Unavailable Unavailable Clari Ruiz [facility] Unavailable [phone] Angel Hannah MD Unavailable Lesly Celaya MD Unavailable Tawana Patel MA Unavailable Unavailable Ramses Mcpherson MD Unavailable [phone] Obdulio Barrera MD Unavailable [phone] Obdulio Barrera MD Unavailable [phone] Marilia Deluna PhD Unavailable Mago Swift HOSPITALITY AMBASSADOR Unavailable Encounter Details Date Type Department Care Team Description 03/01/2022 Travel Social History Tobacco Use Types Packs/Day [...] How often do you attend episcopalian or sikh services? Never 08/05/2021 Do you [...] at Date Recorded Female 11/09/2021 7:53 PM STALLION KEEPER COVID-19 Exposure Response Date Recorded In the last 10 days, have you been in contact with No / Unsu re 03/01/2022 9:33 AM CDT someone who was confirmed or suspected to have Coronavirus/COVID-19? documented as of this encounter Plan of Treatment Upcoming Encounters Date Type Specialty Care Team Description 09/26/2022 Appointment Speech Therapy Obdulio Barrera MD 420 [facility] [address] [place] [address] Anabel Chew SLP [facility] 516 [facility] [address] [place] [address] 09/27/2022 Therapy Visit Physical Therapy Luisana Watkins, PT [address] [place] [address] 09/29/2022 Virtual Visit Pain & Palliative Marilia Deluna, [facility] PhD [address] [place], [place] [address] 09/30/2022 Office Visit Family Practice Aydee Burton, HORTICULTURE SUPERVISOR INTERNAL AFFAIRS COMMANDER [address] [place] [address] 10/03/2022 Therapy Visit Physical Therapy Una Reardon, PT [address] [place] [address] 10/10/2022 Hospital Encounter Surgery Lesly Celaya MD [address] [place] [address] 10/10/2022 Office Visit Surgery Lesly Celaya MD [address] [place] [address] Ninoska Flowers, PA-Ynes [address] [place] [address] 10/10/2022 Surgery Surgery Lesly Celaya, EXCISION, MASSES - MD back, abdomen, [address] right [place] [address] 10/11/2022 Virtual Visit Clari Su, [facility] [address] [place] [id number] [place], [place] [address] 10/14/2022 Appointment Speech Therapy Anabel Chew, GRAIN II FARMWORKER [facility] [address] [facility] [address] [place], [place] [phone] 10/21/2022 Office Visit Pulmonology Obdulio Barrera MD 420 [facility] [address] [place], [place] [address] 10/25/2022 PRE VISIT ENT Charo Burton MD Previsit [address] [place] [address]19[address] 10/25/2022 Office Visit ENT hCaro Burton MD [address] [place], [place] [address] 10/25/2022 Office Visit ENT Provider, 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 Signal Wirer 10/28/2022 Appointment Speech Therapy Anabel Chew, GRAIN II FARMWORKER [address] [place], [place] [address] 11/17/2022 Appointment Speech Therapy Anabel Chew, GRAIN II FARMWORKER [address] [place], [place] [address] 12/23/2022 Office Visit Neurology Colby Yeung MD [address] [place] [place] [id number] Scheduled Procedures Name Priority Associated Diagnoses Date/Time EXCISION, MASS, TORSO Lipoma of skin and subcuta neous 10/10/2022 7:30 AM STALLION KEEPER tissue documented as of this encounter Visit Diagnoses Not on filedocumented in this encounter Additional Health Concerns Assessment Noted Time PHQ-9 Depression Total Score: 20 03/02/2022 7:02 AM CD T documented as of this encounter Care Teams Materials Branch Chief Relationship Specialty Start Date End Date Aydee Burton, PCP - General Nurse Practitioner - 05/17/21 HORTICULTURE SUPERVISOR INTERNAL AFFAIRS COMMANDER Family [address] [place] [address] [phone] Aydee Burton, Assigned PCP 04/28/21 HORTICULTURE SUPERVISOR INTERNAL AFFAIRS COMMANDER [address] [place], [place] [phone] ErwinLouisa Grisel, Assigned Neuroscience 07/11/21 HORTICULTURE SUPERVISOR INTERNAL AFFAIRS COMMANDER Provider [address] [place], [place] [phone] Se Levy, Lead Detailer Furniture 08/05/21 05/12/22 DERRICK BARGE OPERATORClari Ordonez Pharmacist Pharmacist 08/06/21 06/07/22 [facility] [address] [place] [address] [place], Assigned Sleep 08/01/21 Angel Turcios, Provider [address] [place] [address] Lesly Celaya MD Assigned Surgical 09/05/21 [address] Provider [place], [place] [phone] Tawana Patel MA [facility] 09/30/21 Worker Ramses Mcpherson Assigned OBGYN 11/07/21 MD Onesimo Provider [address] [place], [place] [phone] Obdulio Barrera MD Critical Care 01/24/22 420 [facility] [address] [place], [place] [phone] Obdulio Barrera, Assigned Pulmonology 02/06/[address] [phone] Marilia Deluna, PhD Assigned Behavioral 02/20/22 [address] [facility] Provider [place], [place] [phone] Mago Swift [facility] Lead Detailer Furniture Project Director - 08/05/21 Clinical documented as of this encounter
--- OUTSIDE RECORDS SUMMARY | 2022-09-21 04:09 | XMS_ITS | Encounter Summary ---
:1980 Author Organization [place] Address [address] [place] [address] Care Team Providers Name Role Phone Aydee Burton SHEET METAL FORMER METALLURGICAL ANALYST Primary Care Provider [phone] Aydee Burton SHEET METAL FORMER METALLURGICAL ANALYST Unavailable [phone] Louisa Hood SHEET METAL FORMER METALLURGICAL ANALYST Unavailable [phone] Se Levy [facility] Unavailable Unavailable Clari Ruiz [facility] Unavailable Angel Hannah MD Unavailable Lesly Celaya MD Unavailable Tawana Patel MA Unavailable Unavailable Ramses Mcpherson MD Unavailable [phone] Obdulio Barrera MD Unavailable [phone] Obdulio Barrera MD Unavailable [phone] Lesvia Stanley Unavailable Marilia Deluna PhD Unavailable Niyah Decker [facility] Unavailable Clari Poole [facility] Unavailable Lesvia Stanley EP Unavailable JosephClari [facility] Unavailable TimmyNiyah RN Unavailable Delia Avila [facility] Unavailable [phone] [place], Delia Leal [facility] Unavailable [phone] SchwreggievictorinoNiyah Vania [facility] Unavailable Mago Swift [facility] Unavailable Niyah Decker [facility] Unavailable EvertonLeela davis [facility] Unavailable BrianneNiyah Vania [facility] Unavailable Reason for Visit Reason Onset Date Comments Refill Request 02/12/2022 Encounter Details Date Type Department Care Team Description 02/12/2022 Devon Martinez [facility] Aydee Burton, Refill Request [address] [address] [place], [place] [phone] (Wo rk) [id number] [phone] Social History Tobacco Use Types Packs/Day Years [...] How often do you attend mandaen or confucianism services? 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 documented as of this encounter Miscellaneous Notes Telephone Encounter - Carolyn Alejandro RN - 02/13/2022 4:58 PM CDT Images from the original note were not included. Routing refill request to provider for review/approval because: Anti-Seizure Meds Protocol ??Failed 02/12/2022 09:03 PM Protocol Details Review Authorizing provider's last note. Carolyn Alejandro RN, BSN [facility] Triage documented in this encounter Plan of Treatment Upcoming Encounters Date Type Specialty Care Team Description 09/26/2022 Appointment Speech Therapy Obdulio Barrera MD 420 [facility] 276 [place], [place] [address] Anabel Chew SLP [facility] 516 [facility] 396 [place], [place] [address]385 09/27/2022 Therapy Visit Physical Therapy Luisana Watkins, PT [address] [place] [address] 09/29/2022 Virtual Visit Pain & Palliative Marilia Deluna, [facility] PhD [address] [place] [address] 09/30/2022 Office Visit Family Practice Micheal Aydee Mendez, SHEET METAL FORMER METALLURGICAL ANALYST [address] [place], [place] [phone] 10/03/2022 Therapy Visit Physical Therapy Una Reardon, PT [address] [place] [address] 10/10/2022 Hospital Encounter Surgery Lesly Celaya MD [address] [place], [place] [phone] 10/10/2022 Office Visit Surgery Lesly Celaya MD [address] [place], [place] [phone] Ninoska Flowesr PA-C [address] [facility] 300 [place] [address] 10/10/2022 Surgery Surgery Lesly Celaya, EXCISION, MASSES - MD back, abdomen, [address] right lower BL extremity [place], [place] [phone] 10/11/2022 Virtual Visit Clari Su, [facility] [address] 7031982 [place] [address] 10/14/2022 Appointment Speech Therapy Anabel Chew, AUTO BRAKE TECHNICIAN [facility] 516 [facility] 396 [place] [address] 10/21/2022 Office Visit Pulmonology Obdulio Barrera MD 420 [facility] 276 [place], [place] [address] 10/25/2022 PRE VISIT ENT Charo Burton MD Previsit 909 [place] [address] 10/25/2022 Office Visit ENT Charo Burton MD 909 [place] [address] 10/25/2022 Office Visit ENT Provider, Jeannette 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 Camp Manager 10/28/2022 Appointment Speech Therapy Anabel Chew, AUTO BRAKE TECHNICIAN [address] [place] [address] 11/17/2022 Appointment Speech Therapy Anabel Chew, AUTO BRAKE TECHNICIAN [address] [place] [address] 12/23/2022 Office Visit Neurology Colby Yeung MD [address] [place] [address] Scheduled Procedures Name Priority Associated Diagnoses Date/Time EXCISION, MASS, TORSO Lipoma of skin and subcuta neous 10/10/2022 7:30 AM MAMMALOGY TEACHER tissue documented as of this encounter Visit Diagnoses Diagnosis PTSD (post-traumatic stress disorder) - Primary Posttraumatic stress disorder Chest pain, unspecified type Chest tightness Other chest pain Anxiety Anxiety state, unspecified Lipoma of skin and subcutaneous tissue Lipoma of other skin and subcutaneous ti ssue documented in this encounter Additional Health Concerns Infection Onset Date Last Indicated Resolved Time Rule Out COVID-19 03/08/2022 03/08/2022 03/08/2022 4:1 9 PM CDT Rule Out Pertussis 03/08/2022 03/08/2022 03/09/2022 9: 56 AM CDT Rule Out Pertussis 04/05/2022 04/05/2022 04/06/2022 10 :34 AM CDT Assessment Noted Time PHQ-9 Depression Total Score: 15 2022 7:02 AM CD T documented as of this encounter Care Teams Gravel Hauler Relationship Specialty Start Date End Date Aydee Burton, PCP - General Nurse Practitioner - 05/17/21 SHEET METAL FORMER METALLURGICAL ANALYST Family [address] [place] [address] [phone] Aydee Burton, Assigned PCP 04/28/21 SHEET METAL FORMER METALLURGICAL ANALYST [address] [place], [place] [phone] Louisa Hood, Assigned Neuroscience 07/11/21 SHEET METAL FORMER METALLURGICAL ANALYST Provider 500 [place], [place] [phone] Se Levy, Lead Distresser 08/05/21 05/12/22 Clari Francois Pharmacist Pharmacist 08/06/21 06/07/22 [facility] [address] [place] [address] [place], Assigned Sleep 08/01/21 Angel Turcios, Provider [address] [place], [place] [phone] Lesly Celaya MD Assigned Surgical 09/05/21 [address] Provider [place], [place] [address] Tawana Patel MA [facility] 09/30/21 Worker Ramses Mcpherson Assigned OBGYN 11/07/21 MD Onesimo Provider [address] [place], [place] 58[address] Obdulio Barrera MD Critical Care 01/24/22 420 [facility] 276 [place], [place] [address] Obdulio Barrera, Assigned Pulmonology 02/06/22 MD Provider 420 [facility] 276 [place], [place] [address] Lesvia Stanley, EP Cardiac Rehabilitation 03/03/22 03/03/23 [facility] Therapist [address] [place], [place] [address] Marilia Deluna, PhD Assigned Behavioral 02/20/22 [address] [facility] Health Provider [place], [place] [address] Niyah Decker, [facility] Pharmacist Pharmacist 03/07/[address] [place] [address] 812 [place], [place] [address]995 Clari Poole, Pharmacist Pharmacist 03/07/22 06/15/22 [facility] [address] [place] [address] Lesvia Stanley, GHADA Cardiac Rehabilitation 03/17/22 03/17/23 [facility] Therapist [address] [place], [place] [address] Clari Ruiz Assigned MTM 04/09/22 05/27/22 Jocelyn [facility] Pharmacist [address] [place] [address] Niyah Warner, Lead Distresser Primary Care - CC 06/27/22 RN Delia Avila, Pharmacist Pharmacist 06/07/22 [facility] 909 [place], [place] [phone] Delia Avila, Assigned MTM 06/11/2206/24 [facility] Pharmacist 909 [facility] [place], [place] [address] Niyah Decker, [facility] Assigned MTM 05/28/22 06/10/22 420 [facility] 812 Pharmacist [place], [place] [address] Mago Swift, [facility] Lead Distresser Crematory Attendant - 08/05/21 Clinical Niyah Decker, [facility] Assigned MTM 06/25/22 07/29/22 420 [facility] 812 [place] [address] Leela Jarvis [facility] Pharmacist 07/26/22 05/15/23 [address] [facility] [place] [phone] Niyah Decker [facility] Assigned MTM 08/10/22 420 [facility] 812 Pharmacist [place], [place] [address]85 documented as of this encounter
--- OUTSIDE RECORDS SUMMARY | 2022-09-21 04:09 | XMS_ITS | Encounter Summary ---
:1980 Author Organization [place] Address [address] [facility] [address] Care Team Providers Name Role Phone Aydee Burton RIB SAWYER ORAL HEALTH THERAPIST Primary Care Provider [phone] Aydee Burton APRN ORAL HEALTH THERAPIST Unavailable [phone] Louisa Hood RIB SAWYER ORAL HEALTH THERAPIST Unavailable [phone] Se Levy HYDRAULIC RIVETER Unavailable Unavailable Clari Ruiz [facility] Unavailable [phone] Angel Hannah MD Unavailable Lesly Celaya MD Unavailable Tawana Patel MA Unavailable Unavailable Ramses Mcpherson MD Unavailable [phone] Obdulio Barrera MD Unavailable [phone] Obdulio Barrera MD Unavailable [phone] Mago Swift [employer] BUTTON PASTER Unavailable Encounter Details Date Type Department Care Team Description 02/18/2022 Travel Social History Tobacco Use Types Packs/Day [...] How often do you attend tenriism or taoist services? Never 08/05/2021 Do you belong to [...] at Date Recorded Female 11/09/2021 7:53 PM DATABASE SPECIALIST COVID-19 Exposure Response Date Recorded In the last month, have you been in contact with No / Unsure 02/18/2022 6:44 PM CDT someone who was confirmed or suspected to have Coronavirus / COVID-19? documented as of this encounter Plan of Treatment Upcoming Encounters Date Type Specialty Care Team Description 09/26/2022 Appointment Speech Therapy Obdulio Barrera MD 420 [facility] 276 [place] [address] Anabel Chew SLP [place] [phone] [facility] 396 [place], [place] [address] 09/27/2022 Therapy Visit Physical Therapy Luisana Watkins, PT [address] [place] [address] 09/29/2022 Virtual Visit Pain & Palliative Marilia Deluna, [facility] PhD [address] [place], [place] [address] 09/30/2022 Office Visit Family Practice Micheal Aydee Bridgeste, RIB SAWYER ORAL HEALTH THERAPIST 4[address] [place], [place] [phone] 10/03/2022 Therapy Visit Physical Therapy Una Reardon, PT [address] [place] [phone] 10/10/2022 Hospital Encounter Surgery Lesly Celaya MD [address] [place], [place] [phone] 10/10/2022 Office Visit Surgery Lesly Celaya MD [address] [place], [place] [phone] Ninoska Flowers PA-Ynes [address] [facility] 300 [place] [address] 10/10/2022 Surgery Surgery Lesly Celaya, EXCISION, MASSES - MD back, abdomen, [address] right lower [facility] extremity [place], [place] [address] 10/11/2022 Virtual Visit Clari Su, [facility] 2450 [facility] F[address] [place], [place] [address] 10/14/2022 Appointment Speech Therapy Anabel Chew, SCUTCHER TENDER [facility] 516 [facility] 396 [place], [place] [address] 10/21/2022 Office Visit Pulmonology Obdulio Barrera MD 420 [facility] 276 [place], [place] [address]395 10/25/2022 PRE VISIT ENT Charo Burton MD Previsit [address] [place] [address] 10/25/2022 Office Visit ENT Charo Burton MD [address] [place] [address] 10/25/2022 Office Visit ENT Provider, Jeannette 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 Police Liaison Officer 10/28/2022 Appointment Speech Therapy Anabel Chew, SCUTCHER TENDER [address] [place] [address] 11/17/2022 Appointment Speech Therapy Anabel Chew, SCUTCHER TENDER [address] [place], [place] [address] 12/23/2022 Office Visit Neurology Colby Yeung MD [address] [place] [address] Scheduled Procedures Name Priority Associated Diagnoses Date/Time EXCISION, MASS, TORSO Lipoma of skin and subcuta neous 10/10/2022 7:30 AM DATABASE SPECIALIST tissue documented as of this encounter Visit Diagnoses Not on filedocumented in this encounter Additional Health Concerns Assessment Noted Time PHQ-9 Depression Total Score: 15 2022 7:02 AM CD T documented as of this encounter Care Teams Consultant Technology Relationship Specialty Start Date End Date Aydee Burton, PCP - General Nurse Practitioner - 05/17/21 RIB SAWYER ORAL HEALTH THERAPIST Family [address] [place] [address] Aydee Burton, Assigned PCP 04/28/21 RIB SAWYER ORAL HEALTH THERAPIST [address] [place], [place] [address] Louisa Hood, Assigned Neuroscience 07/11/21 RIB SAWYER ORAL HEALTH THERAPIST Provider 500 [place] [address] Se Levy, Lead Slubber Runner 08/05/21 05/12/22 HYDRAULIC RIVETERClari Ordonez Pharmacist Pharmacist 08/06/21 06/07/22 Jocelyn, [facility] [address] [place], [place] [address] [place], Assigned Sleep 08/01/21 Angel Turcios, Provider [address] [place], [place] [address] Lesly Celaya MD Assigned Surgical 09/05/21 [address] [facility] [place] [address] Tawana Patel [facility] 09/30/21 Worker Ramses Mcpherson Assigned OBGYN 11/07/21 MD Onesimo Provider [address] [place] [address] Obdulio Barrera MD Critical Care 01/24/[address] [place] [address] Obdulio Barrera, Tone Pulmonology 02/06/[address] [place] [address] [phone] Mago Swift, [facility] Lead Slubber Runner Systems Support Specialist - 08/05/21 Clinical documented as of this encounter
--- OUTSIDE RECORDS SUMMARY | 2022-09-21 04:09 | XMS_ITS | Encounter Summary ---
:1980 Author Organization [place] Address [address] [place] [address] Care Team Providers Name Role Phone Aydee Burton ORACLE FINANCIAL APPLICATION DEVELOPER CURER ACID DRUM Primary Care Provider [phone] Aydee Burton ORACLE FINANCIAL APPLICATION DEVELOPER CURER ACID DRUM Unavailable [phone] Louisa Hood ORACLE FINANCIAL APPLICATION DEVELOPER CURER ACID DRUM Unavailable [phone] Se Levy [facility] Unavailable Unavailable Clari Ruiz [facility] Unavailable Angel Hannah MD Unavailable Lesly Celaya MD Unavailable Tawana Patel MA Unavailable Unavailable Ramses Mcpherson MD Unavailable [phone] Obdulio Barrera MD Unavailable [phone] Obdulio Barrera MD Unavailable [phone] Lesvia Stanley Unavailable Marilia Deluna PhD Unavailable Niyah Decker [facility] Unavailable Clari Poole [facility] Unavailable Lesvia Stanley EP Unavailable JosephClari [facility] Unavailable TimmyNiyah RN Unavailable Delia Avila [facility] Unavailable [phone] [place], Delia Leal [facility] Unavailable [phone] [facility] Unavailable Mago Swift [facility] Unavailable Niyah Decker [facility] Unavailable EvertonLeela davis [facility] Unavailable SchwNiyah grossman [facility] Unavailable Encounter Details Date Type Department Care Team Description 02/22/2022 [facility] Aydee Burton APRN [facility] 4[address] [facility] [address]151 [place] [address] [place], [place] 3[address]12 (Wo rk) Social History Tobacco Use Types [...] How often do you attend yazdanism or yazdanism services? 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 documented as of this encounter Miscellaneous Notes Telephone Encounter - Carolyn Alejandro RN - 02/22/2022 12:51 PM CDT benzonatate (TESSALON) 100 MG capsule 15 capsule 0 01/21/2022 No Sig - Route: Take 1 capsule (100 mg) by mouth 3 times daily as needed for cough - Oral Patient not taking: Reported on 02/05/2022 Sent to pharmacy as: Benzonatate 100 MG Oral Capsule (TESSALON) Class: E-Prescribe Last office visit: 01/24/2022 Future Office Visit: Next 5 appointments (look out 90 days) Feb 24, 2022 1:30 PM Return Visit with Lucas Anaya MD [facility] ([facility] ) [address] [address] Feb 25, 2022 2:30 PM (Arrive by 2:10 PM) Provider Visit with Aydee Burton APRN CNP [facility] ([facility] ) [address] [place] [phone] Feb 28, 2022 1:00 PM (Arrive by 12:40 PM) Provider Visit with Nadeem Mahmood MD [facility] ([facility] ) [address] [address] Mar 11, 2022 10:00 AM Return Visit with Obdulio Barrera MD [facility] ([facility] ) [address] [place] [address] 200 [facility] [phone] May 11, 2022 3:00 PM Return Visit with Obdulio Barrera MD [facility] ([facility] ) [address] [place] [address] 200 [facility] [phone] CSA -- Patient Level: CSA: None found at the patient level. Routing refill request to provider for review/approval because: Drug not on the [facility] refill protocol Carolyn Alejandro RN, BSN [facility] Triage documented in this encounter Plan of Treatment Upcoming Encounters Date Type Specialty Care Team Description 09/26/2022 Appointment Speech Therapy Obdulio Barrera MD 420 [facility] 276 [place], [place] [address] Anabel Chew, STEAM BOX TENDER [facility] 516 [facility] 396 [place], [place] [address] 09/27/2022 Therapy Visit Physical Therapy Luisana Watkins, PT 2155 [place] [address] 09/29/2022 Virtual Visit Pain & Palliative Marilia Deluna, Care PhD [address] [place] [address] 09/30/2022 Office Visit Family Practice Aydee Burton, ORACLE FINANCIAL APPLICATION DEVELOPER CURER ACID DRUM 4151 [place], [place] [address] 10/03/2022 Therapy Visit Physical Therapy David-Una Tang, PT 2[address] [place] [address] 10/10/2022 Hospital Encounter Surgery Lesly Celaya MD [address] [place], [place] [phone] 10/10/2022 Office Visit Surgery Lesly Celaya MD [address] [place] [address] Ninoska Flowers, [place]-C [address] [place], [place] [phone] 10/10/2022 Surgery Surgery Lesly Celaya, EXCISION, MASSES - MD back, abdomen, [address] [place] [address] 10/11/2022 Virtual Visit Pharm Clari Stoll, [facility] [address] [address] 10/14/2022 Appointment Speech Therapy Anabel Chew, STEAM BOX TENDER [facility] 516 [facility] 396 [place], [place] [address] 10/21/2022 Office Visit Pulmonology Obdulio Barrera MD 420 [facility] 276 [place], [place] [phone] 10/25/2022 PRE VISIT ENT Charo Burton MD Previsit 909 [place], [place] [phone] 10/25/2022 Office Visit ENT Charo Burton MD 909 [place], [place] [address] 10/25/2022 Office Visit ENT Provider, Jeannette 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 Animal Rescuer 10/28/2022 Appointment Speech Therapy Anabel Chew, STEAM BOX TENDER [address] [address] 11/17/2022 Appointment Speech Therapy Anabel Chew, STEAM BOX TENDER [address] [address] 12/23/2022 Office Visit Neurology Colby Yeung MD [address] [place] [address] Scheduled Procedures Name Priority Associated Diagnoses Date/Time EXCISION, MASS, TORSO Lipoma of skin and subcuta neous 10/10/2022 7:30 AM PACKAGING SALES CONSULTANT tissue documented as of this encounter Visit [...] documented as of this encounter Care Teams Bricklayer Supervisor Relationship Specialty Start Date End Date Aydee Burton, PCP - General Nurse Practitioner - 05/17/21 ORACLE FINANCIAL APPLICATION DEVELOPER CURER ACID DRUM [facility] [address] [place] [address] Aydee Burton, Assigned PCP 04/28/21 ORACLE FINANCIAL APPLICATION DEVELOPER CURER ACID DRUM 4151 [place], [place] [address] Louisa Hood, Assigned Neuroscience 07/11/21 ORACLE FINANCIAL APPLICATION DEVELOPER CURER ACID DRUM Provider 500 [place], [place] [address] Se Levy, Lead Care Attendant 08/05/21 05/12/22 Clari Francois Pharmacist Pharmacist 08/06/21 06/07/22 [facility] [address] [place], [place] [address] [place], Assigned Sleep 08/01/21 Angel Turcios, Provider [address] [place], [place] [address] Lesly Celaya MD Assigned Surgical 09/05/21 [address] [facility] [place], [place] [address] [facility] 09/30/21 Worker Ramses Mcpherson Assigned OBGYN 11/07/21 MD Onesimo Provider [address] [place], [place] [address] Obdulio Barrera MD Critical Care 01/24/[address] [place] [address] 8[address]95 Obdulio Barrera, Assigned Pulmonology 02/06/[address] [phone] Lesvia Stanley EP Cardiac Rehabilitation 03/03/22 03/03/23 [facility] Therapist [address] [place] [address] Marilia Deluna, PhD Assigned Behavioral 02/20/22 [address] [facility] Health Provider [place], [place] [phone] Niyah Decker, [facility] Pharmacist Pharmacist 03/07/22 420 [facility] 812 [place], [place] [phone] Clari Poole, Pharmacist Pharmacist 03/07/22 06/15/[address] [facility] [address] [facility] [address] [place], [place] [phone] Lesvia Stanley EP Cardiac Rehabilitation 03/17/22 03/17/23 [facility] Therapist [address] [place] [address] Clari Ruiz Assigned MTM 04/09/22 05/27/[address] [facility] Pharmacist [address] [place] [address] Niyah Warner, Lead Care Attendant Primary Care - CC 06/27/22 RN Delia Avila, Pharmacist Pharmacist 06/07/[address] [facility] 909 [place] [address] Delia Avila, Assigned MTM 06/11/2206/[address] [facility] Pharmacist 9 [place], [place] [phone] Niyah Decker, [facility] Assigned MTM 05/28/22 06/10/22 420 [facility] 812 [place] [address] Mago Swift, [facility] Lead Care Attendant Automobile Repossessor - 08/05/21 Clinical Niyah Decker, [facility] Assigned MTM 06/25/22 07/29/22 420 [facility] 812 [place] [address] Leela Jarvis RPH Pharmacist 07/26/22 05/15/23 [address] [facility] [place] [address] [facility] Assigned MTM 08/10/22 420 [facility] 812 [place] [address] documented as of this encounter
--- OUTSIDE RECORDS SUMMARY | 2022-09-21 04:09 | XMS_ITS | Encounter Summary ---
:1980 Author Organization [place] Address [address] [facility] [place] [address] Care Team Providers Name Role Phone Aydee Burton CUSTOMER SALES ADVISOR COMMUNICATIONS COORDINATOR Primary Care Provider [phone] Aydee Burton APRN COMMUNICATIONS COORDINATOR Unavailable [phone] Louisa Hood CUSTOMER SALES ADVISOR COMMUNICATIONS COORDINATOR Unavailable [phone] eS Levy PROGRAM MANAGEMENT ANALYST Unavailable Unavailable Clari Ruiz [facility] Unavailable [phone] Angel Hannah MD Unavailable Lesly Celaya MD Unavailable Tawana Patel MA Unavailable Unavailable Ramses Mcpherson MD Unavailable [phone] Obdulio Barrera MD Unavailable [phone] Obdulio Barrera MD Unavailable [phone] Mago Swift RETAIL BANKING MANAGER Unavailable Encounter Details Date Type Department Care Team Description 02/15/2022 Travel Social History Tobacco Use Types Packs/Day [...] er 08/05/2021 How often do you attend yarsanism or methodist services? Never 08/05/2021 Do you belong to any clubs or organizations such as yarsanism N o 08/05/2021 groups, unions, fraternal or [...] at Date Recorded Female 11/09/2021 7:53 PM THERAPEUTIC CASE MANAGER COVID-19 Exposure Response Date Recorded In the last month, have you been in contact with No / Unsure 02/15/2022 10:52 AM CDT someone who was confirmed or suspected to have Coronavirus / COVID-19? documented as of this encounter Plan of Treatment Upcoming Encounters Date Type Specialty Care Team Description 09/26/2022 Appointment Speech Therapy Obdulio Barrera MD [address] [facility] 276 [place] [address] Anabel Chew SLP [address] [place], [place] [address] 09/27/2022 Therapy Visit Physical Therapy Luisana Watkins, PT [address] [place] [address] 09/29/2022 Virtual Visit Pain & Palliative Marilia Deluna, [facility] PhD [address] [place], [place] [address] 09/30/2022 Office Visit Family Practice Micheal Aydee Bridgeste, CUSTOMER SALES ADVISOR COMMUNICATIONS COORDINATOR [address] [place], [place] [phone] 10/03/2022 Therapy Visit Physical Therapy Una Reardon, PT [address] [place] [phone] 10/10/2022 Hospital Encounter Surgery Lesly Celaya MD [address] [place], [place] [phone] 10/10/2022 Office Visit Surgery Lesly Celaya MD [address] [place], [place] [phone] Ninoska Flowers PA-Ynes [address] [facility] 300 [place] [address] 10/10/2022 Surgery Surgery Lesly Celaya, EXCISION, MASSES - MD back, abdomen, [address] right lower [facility] extremity [place], [place] [phone] 10/11/2022 Virtual Visit Clari Su, [facility] [address] [facility] [address] [place], [place] [address] 10/14/2022 Appointment Speech Therapy Anabel Chew, ENERGY TECHNICIAN [facility] 516 [facility] [address] [place], [place] [address] 10/21/2022 Office Visit Pulmonology Obdulio Barrera MD [address] [facility] 276 [place], [place] [address] 10/25/2022 PRE VISIT ENT Charo Burton MD Previsit [address] [place] [address] 10/25/2022 Office Visit ENT Charo Burton MD [address] [place] [address] 10/25/2022 Office Visit ENT Provider, Jeannette 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 Packing Attendant 10/28/2022 Appointment Speech Therapy Anabel Chew, ENERGY TECHNICIAN [address] [place] [address] 11/17/2022 Appointment Speech Therapy Anabel Chew, ENERGY TECHNICIAN [address] [place], [place] [address] 12/23/2022 Office Visit Neurology Colby Yeung MD [address] [place] [address] Scheduled Procedures Name Priority Associated Diagnoses Date/Time EXCISION, MASS, TORSO Lipoma of skin and subcuta neous 10/10/2022 7:30 AM THERAPEUTIC CASE MANAGER tissue documented as of this encounter Visit Diagnoses Not on filedocumented in this encounter Additional Health Concerns Assessment Noted Time PHQ-9 Depression Total Score: 15 2022 7:02 AM CD T documented as of this encounter Care Teams Senior Accounts Payable Specialist Relationship Specialty Start Date End Date Aydee Burton, PCP - General Nurse Practitioner - 05/17/21 CUSTOMER SALES ADVISOR COMMUNICATIONS COORDINATOR Family [address] [place] [address] 690192 Aydee Burton, Assigned PCP 04/28/21 CUSTOMER SALES ADVISOR COMMUNICATIONS COORDINATOR [address] [place], [place] [address] Louisa Hood, Assigned Neuroscience 07/11/21 CUSTOMER SALES ADVISOR COMMUNICATIONS COORDINATOR Provider 500 [place] [address] Se Levy, Lead Fertilizer Applicator 08/05/21 05/12/22 PROGRAM MANAGEMENT ANALYSTClari Ordonez Pharmacist Pharmacist 08/06/21 06/07/22 Jocelyn, [facility] [address] [place], [place] [address] [place], Assigned Sleep 08/01/21 Angel Turcios, Provider [address] [place], [place] [address] Lesly Celaya MD Assigned Surgical 09/05/21 [address] [facility] [place] [address] Tawana Patel [facility] 09/30/21 Worker Ramses Mcpherson Assigned OBGYN 11/07/21 MD Onesimo Provider [address] [place] [address] Obdulio Barrera MD Critical Care 01/24/[address] [place] [address] Obdulio Barrera, Tone Pulmonology 02/06/[address] [place] [address] Mago Swift, [facility] Lead Fertilizer Applicator Diabetes Education Coordinator - 08/05/21 Clinical documented as of this encounter
--- OUTSIDE RECORDS SUMMARY | 2022-09-21 04:09 | XMS_ITS | Encounter Summary ---
:1980 Author Organization [place] Address [address] [facility] [place] [address] Care Team Providers Name Role Phone Aydee Burton TRAINING AND DEVELOPMENT COORDINATOR NAIL TECHNICIAN Primary Care Provider [phone] Aydee Burton APRN NAIL TECHNICIAN Unavailable [phone] Louisa Hood TRAINING AND DEVELOPMENT COORDINATOR NAIL TECHNICIAN Unavailable [phone] Se Levy CLOTH WINDER Unavailable Unavailable Clari Ruiz [facility] Unavailable [phone] Angel Hannah MD Unavailable Lesly Celaya MD Unavailable Tawana Patel MA Unavailable Unavailable Ramses Mcpherson MD Unavailable [phone] Obdulio Barrera MD Unavailable [phone] Obdulio Barrera MD Unavailable [phone] Mago Swift STORE ADMINISTRATIVE ASSISTANT Unavailable Encounter Details Date Type Department Care Team Description 02/08/2022 Travel Social History Tobacco Use Types Packs/Day [...] How often do you attend advent or temple services? Never 08/05/2021 Do you [...] at Date Recorded Female 11/09/2021 7:53 PM CILNICAL SCIENTIST COVID-19 Exposure Response Date Recorded In the last month, have you been in contact Unable to assess 02/08/2022 5:05 PM CDT with someone who was confirmed or suspected to have Coronavirus / COVID-19? documented as of this encounter Plan of Treatment Upcoming Encounters Date Type Specialty Care Team Description 09/26/2022 Appointment Speech Therapy Obdulio Barrera MD [address] [facility] 276 [place] [address] Anabel Chew SLP [place] 627796 [facility] 396 [place], [place] [address] 09/27/2022 Therapy Visit Physical Therapy Luisana Watkins, PT [address] [place] [address] 09/29/2022 Virtual Visit Pain & Palliative Marilia Deluna, [facility] PhD [address] [place] [address] 09/30/2022 Office Visit Family Practice Aydee Burton Vanessa, TRAINING AND DEVELOPMENT COORDINATOR NAIL TECHNICIAN [address] [place], [place] [phone] 10/03/2022 Therapy Visit Physical Therapy Una Reardon, PT [address] [place] [phone] 10/10/2022 Hospital Encounter Surgery Lesly Celaya MD [address] [place], [place] [phone] 10/10/2022 Office Visit Surgery Lesly Celaya MD [address] [place], [place] [address] Ninoska Flowers, PA-Ynes [address] [facility] 300 [place] [address] 10/10/2022 Surgery Surgery Lesly Celaya, EXCISION, MASSES - MD back, abdomen, [address] right lower [facility] extremity [place], [place] [phone] 10/11/2022 Virtual Visit Clari Su, [facility] [address] [facility] [address] [place], [place] [address] 10/14/2022 Appointment Speech Therapy Anabel Chew, SCRAPE GATHERER [facility] [address] [place], [place] [address] 10/21/2022 Office Visit Pulmonology Obdulio Barrera MD [address] [facility] [address] [place] [address] 10/25/2022 PRE VISIT ENT Charo Burton MD Previsit [address] [place] [address] 10/25/2022 Office Visit ENT Charo Burton MD [address] [place] [address] 582895 10/25/2022 Office Visit ENT Provider, Jeannette 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 Shoe Parts Molder 10/28/2022 Appointment Speech Therapy Anabel Chew, SCRAPE GATHERER [address] [address] 11/17/2022 Appointment Speech Therapy Anabel Chew, SCRAPE GATHERER [address] [address] 12/23/2022 Office Visit Neurology Colby Yeung MD [address] [place] [address] Scheduled Procedures Name Priority Associated Diagnoses Date/Time EXCISION, MASS, TORSO Lipoma of skin and subcuta neous 10/10/2022 7:30 AM CILNICAL SCIENTIST tissue documented as of this encounter Visit Diagnoses Not on filedocumented in this encounter Additional Health Concerns Assessment Noted Time PHQ-9 Depression Total Score: 15 2022 7:02 AM CD T documented as of this encounter Care Teams Boat Diesel Motor Mechanic Relationship Specialty Start Date End Date Aydee Burton, PCP - General Nurse Practitioner - 05/17/21 TRAINING AND DEVELOPMENT COORDINATOR NAIL TECHNICIAN Family [address] [place], [place] [address] Aydee Burton, Assigned PCP 04/28/21 TRAINING AND DEVELOPMENT COORDINATOR NAIL TECHNICIAN [address] [place], [place] [address] Louisa Hood, Assigned Neuroscience 07/11/21 TRAINING AND DEVELOPMENT COORDINATOR NAIL TECHNICIAN Provider 500 [place] [address] Se Levy, Lead Arboriculturist 08/05/21 05/12/22 CLOTH WINDERClari Ordonez Pharmacist Pharmacist 08/06/21 06/07/22 Jocelyn, [facility] [address] [place], [place] [address] [place], Assigned Sleep 08/01/21 Angel Turcios, Provider [address] [place], [place] [address] Lesly Celaya MD Assigned Surgical 09/05/21 [address] [facility] [place] [address] Tawana Patel [facility] 09/30/21 Worker Ramses Mcpherson Assigned OBGYN 11/07/21 MD Onesimo Provider [address] [place] [address] Obdulio Barrera MD Critical Care 01/24/[address] [place] [address] Obdulio Barrera, Assigned Pulmonology 02/06/[address] 9[address] Mago Swift, [facility] Lead Arboriculturist Cushion Cover Inspector - 08/05/21 Clinical documented as of this encounter
--- OUTSIDE RECORDS SUMMARY | 2022-09-21 04:09 | XMS_ITS | Encounter Summary ---
:1980 Author Organization [place] Address [address] [facility] [place] [address] Care Team Providers Name Role Phone Aydee Burton PRINCIPAL PLANNER RN CALL CENTER Primary Care Provider [phone] Aydee Burton APRN RN CALL CENTER Unavailable [phone] Louisa Hood PRINCIPAL PLANNER RN CALL CENTER Unavailable [phone] Se Levy MANAGER STERILE PROCESSING Unavailable Unavailable Clari Ruiz [facility] Unavailable [phone] Angel Hannah MD Unavailable Lesly Celaya MD Unavailable Tawana Patel MA Unavailable Unavailable Ramses Mcpherson MD Unavailable [phone] Obdulio Barrera MD Unavailable [phone] Obdulio Barrera MD Unavailable [phone] Marilia Deluna PhD Unavailable Mago Swift CHART WRITER Unavailable Reason for Referral Med Therapy Management (Routine: Next available opening) - Closed Specialty Diagnoses / Procedures Referred By Contact Refer red To Contact Pharmacist Diagnoses Sleep walking and eating Polypharmacy Aydee Burton APRN CNP [address] [place] [address] Referral ID Status Reason Start Date Expiration Date Visits Requ ested Visits Authorized [id number] Closed 03/01/2022 03/01/2023 1 1 Reason for Visit Reason Comments Asthma Encounter Details Date Type Department Care Team Description 03/01/2022 Office Visit [facility] Aydee Burton Sleep walk ing and eating (Primary Dx); [facility] [place] ELADIO Mendez CNP Polypharmacy; [address] [facility] [address] [place] [address] [facility]; [address] SOB (shortness of breath); [place], [place] [address] Chest pain, unspecified type; [address] Bronchospasm; [phone] Encounter for completion of form with patient Social History Tobacco Use Types Packs/Day Years [...] How often do you attend rastafari or taoist services? Never 08/05/2021 Do you [...] at Date Recorded Female 11/09/2021 7:53 PM ANIMAL SHELTER CLERK COVID-19 Exposure Response Date Recorded In the last 10 days, have you been in contact with No / Unsu re 03/03/2022 3:55 PM CDT someone who was confirmed or suspected to have Coronavirus/COVID-19? documented as of this encounter Last Filed Vital Signs Vital Sign Reading Time Taken Comments Blood Pressure 120/74 03/01/2022 9:50 AM CDT Pulse 112 03/01/2022 9:50 AM CDT Temperature 36.7 ??C (98 ??F) 03/01/2022 9:50 AM CDT Respiratory Rate - - Oxygen Saturation 96% 03/01/2022 9:50 AM CDT Inhaled Oxygen Concentration - - Weight 98.4 kg (217 lb) 03/01/2022 9:50 AM CDT Height 170.2 cm (5' 7) 03/01/2022 9:50 AM CDT Body Mass Index 33.99 03/01/2022 9:50 AM CDT documented in this encounter Patient Instructions AttachmentsThe following attachments cannot be sent through Care Everywhere. Bronchospasm (Adult) (Latvian)Pneumococcal Vaccination (Latvian)documented in this encounter Progress Notes Aydee Burton, ELADIO RN CALL CENTER - 03/01/2022 9:50 AM CDT Images from the original note were not included. Assessment & Plan Sleep walking and eating Polypharmacy New med review. Feel like some of her symptoms could be from a mixture of her medications. Marta verbalizes understanding of plan of care and is in agreement. - Med Therapy Management Referral Pulmonary air trapping SOB (shortness of breath) Chest pain, unspecified type Bronchospasm Stable. Letter for assistance filled out today. Okay to work 3 days a week for 4 hours at her current job. 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 Encourage her to discuss with pulmonology. Further restriction or removal of restrictions based on pulmonary guidance. Marta verbalizes understanding of plan of care and is in agreement. Return in about 2 days (around 03/03/2022) for Recheck with pulmonology . Aydee Burton APRN [facility] Marta is a 42 year old who presents for the following health issues History of Present Illness Mental Health Follow-up: Today's PHQ-9 PHQ-9 Total Score: 20 PHQ-9 Q9 Thoughts of better off /self-harm past 2 weeks : (P) Not at all How difficult have these problems made it for you to do your work, take care of things at home, or get along with other people: Extremely difficult Reason for visit: Work return visit Symptom onset: More than a month Symptom intensity: Moderate Symptom progression: Improving Had these symptoms before: No What makes it worse: Walking stairs eating mask What makes it better: Rest She eats 0-1 servings of fruits and vegetables daily.She consumes 1 sweetened beverage(s) daily.She exercises with enough effort to increase her heart rate 9 or less minutes per day. She exercises withenough effort to increase her heart rate 3 or less days per week. She is taking medications regularly. Clinic Care Coordination - 02/25/2022 -- [facility] x9 months - Has been waking in the middle of the night grabbing food has food on her clothes and choking at times. Paid rent in middle of the which was not due until 04/2022. Will be woken up in the middle of the night if sits up and falls over on bed. 09/09/21 Sleep study Recommendations: ?? Suggest the option of positional therapy during sleep or dental appliance through referral to Sleep Dentistry for control of obstructive events that were noted during supine sleep apnea and/or socially disruptive snoring. ?? Suggest further inquiry about dream enactment behaviors. ?? Advice regarding the risks of drowsy driving. ?? Suggest optimizing sleep schedule and avoiding sleep deprivation. ?? Weight management (if BMI > 30). ?? Pharmacologic therapy should be used for management of restless legs syndrome only if present andclinically indicated and not based on the presence of periodic limb movements alone. Diagnostic Codes: Unspecified Sleep Disturbance G47.9 Periodic Limb Movement Disorder G47.61 Elbow surgery was schedule 01/10/22 however 3 days after hysterectomy surgery developed cough, a lot of dry hack coughing; Elbow is a WC??injury 12/26/20;Tripped at work and fell, landing forward on elbows. [place] a snap. c/o tinging in left hand, especially left 4-5 fingers.Three-view left elbow demons trates a moderately displaced intra-articular fracture head of the left radius. Currently has screws that are loose and having significant left elbow pain. Hasn't been working due to lung capacity. Seeing pulm. Has had multiple visits, imaging, medications started. Sees pulm in 2 days ? pulm rehab. Cleared to work 3 days a week for 4 hours a day by this CAR CH[employer]ER. Gave her 2 weeks notice at her current job. 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 Has paperwork to fill out today for some assistance. Review of Systems Constitutional, HEENT, cardiovascular, pulmonary, GI, , musculoskeletal, neuro, skin, endocrine and psych systems are negative, except as otherwise noted in the HPI. Objective BP 120/74 (BP Location: Left arm, Patient Position: Chair, Cuff Size: Adult Large) Pulse 112 Temp 98 ??F (36.7 ??C) (Tympanic) Ht 1.702 m (5' 7) Wt 98.4 kg (217 lb) LMP 12/11/2021 (Exact Date) SpO2 96% No BMI 33.99 kg/m?? Body mass index is 33.99 kg/m??. Physical Exam GENERAL: healthy, alert and [...] Appointment Speech Therapy Obdulio Barrera MD [address] [address] Anabel Chew, MISSILE INSPECTOR PREFLIGHT [facility] 516 [facility] 396 [place], [place] [address] 09/27/2022 Therapy Visit Physical Therapy Luisana Watkins, PT [address] [place] [address] 09/29/2022 Virtual Visit Pain & Palliative Marilia Deluna, [facility] PhD [address] [place] [address] 09/30/2022 Office Visit Family Practice Aydee Burton, PRINCIPAL PLANNER RN CALL CENTER [address] [place] [address] 10/03/2022 Therapy Visit Physical Therapy Una Reardon, PT [address] [place] [address] 10/10/2022 Hospital Encounter Surgery Lesly Celaya MD [address] [place] [address] 10/10/2022 Office Visit Surgery Lesly Celaya MD [address] [place] [address] Ninoska Flowers PA-Ynes [address] [place] [address] 10/10/2022 Surgery Surgery Lesly Celaya, EXCISION, MASSES - MD back, abdomen, [address] right lower [facility] [place] [address] 10/11/2022 Virtual Visit Clari Su, [facility] [address] [address] 10/14/2022 Appointment Speech Therapy Anabel Chew, MISSILE INSPECTOR PREFLIGHT [address] [address] 10/21/2022 Office Visit Pulmonology Obdulio Barrera MD [address] [address] 10/25/2022 PRE VISIT ENT Charo Burton MD Previsit [address] [place] [address]4585 10/25/2022 Office Visit ENT Charo Burton MD [address] [place] [address] 10/25/2022 Office Visit ENT Provider, 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 Program Host 10/28/2022 Appointment Speech Therapy Anabel Chew, MISSILE INSPECTOR PREFLIGHT [address] [address] 11/17/2022 Appointment Speech Therapy Anabel Chew, MISSILE INSPECTOR PREFLIGHT [address] [address] 12/23/2022 Office Visit Neurology Colby Yeung MD [address] [place] [address] Scheduled Procedures Name Priority Associated Diagnoses Date/Time EXCISION, MASS, TORSO Lipoma of skin and subcuta neous 10/10/2022 7:30 AM ANIMAL SHELTER CLERK tissue Scheduled Referrals Name Type Priority Associated Diagnoses Order S chedule Med Therapy Referral Routine: Next Sleep walking and Ordered: Management Referral available opening eating 03/01/2022 Polypharmacy documented as of this encounter Visit Diagnoses Diagnosis Sleep walking and eating - Primary Sleep arousal disorder Polypharmacy Issue of repeat prescriptions Pulmonary air trapping SOB (shortness of breath) Shortness of breath Chest pain, unspecified type Bronchospasm Acute bronchospasm Encounter for completion of form with oriana montejo Lipoma of skin and subcutaneous tissue Lipoma of other skin and subcutaneous ti ssue documented in this encounter Additional Health Concerns Assessment Noted Time PHQ-9 Depression Total Score: 20 03/02/2022 7:02 AM CD T documented as of this encounter Care Teams Carriage Rider Relationship Specialty Start Date End Date Aydee Burton, PCP - General Nurse Practitioner - 05/17/21 PRINCIPAL PLANNER RN CALL CENTER Family [address] [place] [address] Aydee Burton, Assigned PCP 04/28/21 PRINCIPAL PLANNER RN CALL CENTER [address] [place], [place] [phone] Louisa Hood, Assigned Neuroscience 07/11/21 PRINCIPAL PLANNER RN CALL CENTER Provider 500 [place], [place] [phone] Se Levy, Lead Almond Blancher Operator 08/05/21 05/12/22 Clari Francois Pharmacist Pharmacist 08/06/21 06/07/22 Jocelyn, [facility] [address] [place], [place] [address] [place], Assigned Sleep 08/01/21 Angel Turcios Provider [address] [place], [place] [phone] Lesly Celaya MD Assigned Surgical 09/05/21 [address] [place] [address] Tawana Patel MA [facility] 09/30/21 Worker Ramses Mcpherson Assigned OBGYN 11/07/21 MD Oensimo Provider [address] [place] [address] Obdulio Barrera MD Critical Care 01/24/[address] [place] [address] Obdulio Barrera, Assigned Pulmonology 02/06/22 MD Provider [address] [place] [address] Marilia Deluna, PhD Assigned Behavioral 02/20/22 [address] [facility] Health Provider [place], [place] [address] Mago Swift CHART WRITER Lead Almond Blancher Operator Front Man - 08/05/21 Clinical documented as of this encounter
--- OUTSIDE RECORDS SUMMARY | 2022-09-21 04:09 | XMS_ITS | Encounter Summary ---
:1980 Author Organization [place] Address [address] [facility] [place] [place] [address] Care Team Providers Name Role Phone Aydee Burton SPIRAL WINDING MACHINE HELPER NATURAL GAS INSPECTOR Primary Care Provider [phone] Aydee Burton APRN NATURAL GAS INSPECTOR Unavailable [phone] Louisa Hood SPIRAL WINDING MACHINE HELPER NATURAL GAS INSPECTOR Unavailable [phone] Se Levy ELECTRONIC PARTS SALESPERSON Unavailable Unavailable Clari Ruiz [facility] Unavailable [phone] Angel Hannah MD Unavailable Lesly Celaya MD Unavailable Tawana Patel MA Unavailable Unavailable Ramses Mcpherson MD Unavailable [phone] Obdulio Barrera MD Unavailable [phone] Obdulio Barrera MD Unavailable [phone] Mago Swift FREELANCE PROGRAMMER/APP DEVELOPER Unavailable Encounter Details Date Type Department Care Team Description 02/10/2022 Travel Social History Tobacco Use Types Packs/Day [...] How often do you attend hindu or amish services? Never 08/05/2021 Do you [...] at Date Recorded Female 11/09/2021 7:53 PM WATER PUMPING STATION ENGINEER COVID-19 Exposure Response Date Recorded In the last month, have you been in contact Unable to assess 02/10/2022 11:30 AM CDT with someone who was confirmed or suspected to have Coronavirus / COVID-19? documented as of this encounter Plan of Treatment Upcoming Encounters Date Type Specialty Care Team Description 09/26/2022 Appointment Speech Therapy Obdulio Barrera MD 420 [facility] 276 [place] [address] Anabel Chew SLP [place] 435186 [facility] 396 [place], [place] [address] 09/27/2022 Therapy Visit Physical Therapy Luisana Watkins, PT [address] [place] [address] 09/29/2022 Virtual Visit Pain & Palliative Marilia Deluna, [facility] PhD [address] [place] [address] 09/30/2022 Office Visit Family Practice Aydee Burton Vanessa, SPIRAL WINDING MACHINE HELPER NATURAL GAS INSPECTOR [address] [place], [place] [id number] 10/03/2022 Therapy Visit Physical Therapy Una Reardon, PT [address] [place] [phone] 10/10/2022 Hospital Encounter Surgery Lesly Celaya MD [address] [place], [place] [id number] 10/10/2022 Office Visit Surgery Lesly Celaya MD [address] [place], [place] [address] Nnioska Flowers, PA-Ynes [address] [facility] 300 [place] [address] 10/10/2022 Surgery Surgery Lesly Celaya, EXCISION, MASSES - MD back, abdomen, [address] right lower [facility] extremity [place], [place] [phone] 10/11/2022 Virtual Visit Clari Su, [facility] [address] [facility] [address] [place], [place] [address] 10/14/2022 Appointment Speech Therapy Anabel Chew, REFERENCE AND INSTRUCTION LIBRARIAN [facility] [address] [facility] [address] [place], [place] [address] 10/21/2022 Office Visit Pulmonology Obdulio Barrera MD 420 [facility] 276 [place] [address] 10/25/2022 PRE VISIT ENT Charo Burton MD Previsit [address] [place] [address] 10/25/2022 Office Visit ENT Charo Burton MD [address] [place] [address]75[address] 10/25/2022 Office Visit ENT Provider, Jeannette 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 Client Retention Specialist 10/28/2022 Appointment Speech Therapy Anabel Chew, REFERENCE AND INSTRUCTION LIBRARIAN [address] [address] 11/17/2022 Appointment Speech Therapy Anabel Chew, REFERENCE AND INSTRUCTION LIBRARIAN [address] [address] 12/23/2022 Office Visit Neurology Colby Yeung MD [address] [place] [address] Scheduled Procedures Name Priority Associated Diagnoses Date/Time EXCISION, MASS, TORSO Lipoma of skin and subcuta neous 10/10/2022 7:30 AM WATER PUMPING STATION ENGINEER tissue documented as of this encounter Visit Diagnoses Not on filedocumented in this encounter Additional Health Concerns Assessment Noted Time PHQ-9 Depression Total Score: 15 2022 7:02 AM CD T documented as of this encounter Care Teams Cartography Technician Relationship Specialty Start Date End Date Aydee Burton, PCP - General Nurse Practitioner - 05/17/21 SPIRAL WINDING MACHINE HELPER NATURAL GAS INSPECTOR Family [address] [place], [place] [address] Aydee Burton, Assigned PCP 04/28/21 SPIRAL WINDING MACHINE HELPER NATURAL GAS INSPECTOR [address] [place], [place] [address]292 Louisa Hood, Assigned Neuroscience 07/11/21 SPIRAL WINDING MACHINE HELPER NATURAL GAS INSPECTOR Provider 500 [place] [address] Se Levy, Lead Supervisor Cell Efficiency 08/05/21 05/12/22 ELECTRONIC PARTS SALESPERSONClari Ordonez Pharmacist Pharmacist 08/06/21 06/07/22 Jocelyn, [facility] [address] [place], [place] [address] [place], Assigned Sleep 08/01/21 Angel Turcios, Provider [address] [place], [place] [address] Lesly Celaya MD Assigned Surgical 09/05/21 [address] [facility] [place] [address] Tawana Patel [facility] 09/30/21 Worker Ramses Mcpherson Assigned OBGYN 11/07/21 MD Onesimo Provider [address] [place] [address] Obdulio Barrera MD Critical Care 01/24/[address] [place] [address] 2[address]35 Obdulio Barrera, Assigned Pulmonology 02/06/[address] [address] Mago Swift, [facility] Lead Supervisor Cell Efficiency Ophthalmic Technician - 08/05/21 Clinical documented as of this encounter
--- OUTSIDE RECORDS SUMMARY | 2022-09-21 04:10 | XMS_ITS | Encounter Summary ---
:1980 Author Organization [place] Address [address] [place] [address] Care Team Providers Name Role Phone Aydee Burton PHARMACY AFFAIRS ASSISTANT SQUIRT MACHINE OPERATOR Primary Care Provider Aydee Burton APRN SQUIRT MACHINE OPERATOR Unavailable [phone] Louisa Hood PHARMACY AFFAIRS ASSISTANT SQUIRT MACHINE OPERATOR Unavailable [phone] Se Levy SALES ENABLEMENT LEAD Unavailable Unavailable Clari Ruiz [facility] Unavailable [phone] Angel Hannah MD Unavailable Lesly Celaya MD Unavailable Tawana Patel MA Unavailable Unavailable Ramses Mcpherson MD Unavailable [phone] Obdulio Barrera MD Unavailable [phone] Mago Swift CORRECTIONAL COOK Unavailable Encounter Details Date Type Department Care Team Description 02/05/2022 Travel Social History Tobacco Use Types Packs/Day [...] How often do you attend protestant or zoroastrian services? Never 08/05/2021 Do you [...] at Date Recorded Female 11/09/2021 7:53 PM BLOCK MASON COVID-19 Exposure Response Date Recorded In the last month, have you been in contact with No / Unsure 02/05/2022 12:58 PM CDT someone who was confirmed or suspected to have Coronavirus / COVID-19? documented as of this encounter Plan of Treatment Upcoming Encounters Date Type Specialty Care Team Description 09/26/2022 Appointment Speech Therapy Obdulio Barrera MD 420 [facility] 276 [place], [place] [address] Anabel Chew, SURVEY RODMAN [address] [place], [place] [address] 09/27/2022 Therapy Visit Physical Therapy Luisana Watkins, PT [address] [place] [address] 09/29/2022 Virtual Visit Pain & Palliative Marilia Deluna, [facility] PhD [address] [place] [place], [place] [address] 09/30/2022 Office Visit Family Practice Aydee Burton, PHARMACY AFFAIRS ASSISTANT SQUIRT MACHINE OPERATOR [address] [place], [place] [address] 10/03/2022 Therapy Visit Physical Therapy Una Reardon, PT [address] [place] [phone] 10/10/2022 Hospital Encounter Surgery Lesly Celaya MD [address] [place] [address] 10/10/2022 Office Visit Surgery Lesly Celaya MD [address] [place] [address] Ninoska Flowers, PA-C [address] [place] [address] 10/10/2022 Surgery Surgery Lesly Celaya, EXCISION, MASSES - MD back, abdomen, [address] right lower [facility] [place] [address] 10/11/2022 Virtual Visit Clari Su, [facility] [address] [place] [phone] [place] [address] 10/14/2022 Appointment Speech Therapy Anabel Chew, SURVEY RODMAN [facility] [address] [facility] 396 [place] [address] 10/21/2022 Office Visit Pulmonology Obdulio Barrera MD [address] [address] 10/25/2022 PRE VISIT ENT Charo Burton MD Previsit [address] [place] [address] 10/25/2022 Office Visit ENT Charo Burton MD [address] [place] [address] 10/25/2022 Office Visit ENT Provider, Jeannette 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 Summer Law Clerk 10/28/2022 Appointment Speech Therapy Anabel Chew, SURVEY RODMAN [address] [address] 11/17/2022 Appointment Speech Therapy Anabel Chew, SURVEY RODMAN [address] [address] 12/23/2022 Office Visit Neurology Colby Yeung MD [address] [place] [address] Scheduled Procedures Name Priority Associated Diagnoses Date/Time EXCISION, MASS, TORSO Lipoma of skin and subcuta neous 10/10/2022 7:30 AM BLOCK MASON tissue documented as of this encounter Visit Diagnoses Not on filedocumented in this encounter Additional Health Concerns Assessment Noted Time PHQ-9 Depression Total Score: 15 2022 7:02 AM CD T documented as of this encounter Care Teams Rn Practitioner Relationship Specialty Start Date End Date Aydee Burton, PCP - General Nurse Practitioner - 05/17/21 PHARMACY AFFAIRS ASSISTANT SQUIRT MACHINE OPERATOR Family [address] [place] [phone] Aydee Burton, Assigned PCP 04/28/21 PHARMACY AFFAIRS ASSISTANT [address] [address]48[address] Louisa Hood, Assigned Neuroscience 07/11/21 PHARMACY AFFAIRS ASSISTANT SQUIRT MACHINE OPERATOR Provider 500 [place], [place] [address] Se Levy, Lead Demonstrator [employer] 08/05/21 05/12/22 SALES ENABLEMENT LEAD Clari Ruiz Pharmacist Pharmacist 08/06/21 06/07/22 Jocelyn, [facility] [address] [place], [place] [address] [place], Assigned Sleep 08/01/21 Angel Turcios, Provider [address] [place], [place] [address] Lesly Celaya MD Assigned Surgical 09/05/21 [address] Provider [place], [place] [address] Tawana Patel MA [facility] 09/30/21 Worker Ramses Mcpherson Assigned OBGYN 11/07/21 MD Onesimo Provider [address] [place], [place] [address] Obdulio Barrera MD Critical Care 01/24/22 420 [facility] [address] [place], [place] [address] Mago Swift, CORRECTIONAL COOK Lead Demonstrator [employer] Blending Coordinator - 08/05/21 Clinical documented as of this encounter
--- OUTSIDE RECORDS SUMMARY | 2022-09-21 04:10 | XMS_ITS | Encounter Summary ---
:1980 Author Organization [place] Address [address] [place] [address] Care Team Providers Name Role Phone Aydee Burton SKULL SPLITTER FIFTH HAND Primary Care Provider [phone] Aydee Burton SKULL SPLITTER FIFTH HAND Unavailable [phone] Louisa Hood SKULL SPLITTER FIFTH HAND Unavailable [phone] Se Levy [facility] Unavailable Unavailable Clari Ruiz [facility] Unavailable [phone] Angel Hannah MD Unavailable Lesly Celaya MD Unavailable Tawana Patel MA Unavailable Unavailable Ramses Mcpherson MD Unavailable [phone] Obdulio Barrera MD Unavailable [phone] Obdulio Barrera MD Unavailable [phone] Lesvia Stanley Unavailable Marilia Deluna PhD Unavailable Niyah Decker [facility] Unavailable Clari Poole [facility] Unavailable Lesvia Stanley EP Unavailable JosephClari [facility] Unavailable [phone] TimmyNiyah RN Unavailable Delia Avila [facility] Unavailable [phone] [place], Delia Leal [facility] Unavailable SchwreggievictorinoNiyah Vania [facility] Unavailable Mago Swift [facility] Unavailable Niyah Decker [facility] Unavailable EvertonLeela davis [facility] Unavailable SchwNiyah grossman [facility] Unavailable Encounter Details Date Type Department Care Team Description 02/07/2022 [facility] Aydee Burton APRN [facility] [address] [facility] [address] [place] [address] [place], [place] 228012 (Wo rk) Social History Tobacco Use Types [...] er 08/05/2021 How often do you attend anabaptism or uatsdin services? Never 08/05/2021 Do you belong to any clubs or organizations such as anabaptism N o 08/05/2021 groups, unions, fraternal or [...] at Date Recorded Female 11/09/2021 7:53 PM LAUNDRY MACHINE TENDER COVID-19 Exposure Response Date Recorded In the last month, have you been in contact Unable to assess 02/10/2022 11:30 AM CDT with someone who was confirmed or suspected to have Coronavirus / COVID-19? documented as of this encounter Miscellaneous Notes Telephone Encounter - Jazmyn Alatorre RN - 02/08/2022 9:14 PM CDT Unclear if these medications are suppose to be ongoing based on quantity and diagnosis Jazmyn Griffiths RN, BSN documented in this encounter Plan of Treatment Upcoming Encounters Date Type Specialty Care Team Description 09/26/2022 Appointment Speech Therapy Obdulio Barrera MD 420 [facility] 276 [place] [address] Anabel Chew, ARCHITECTURAL JOB CAPTAIN [place] [id number] [facility] 396 [place], [place] [address] 09/27/2022 Therapy Visit Physical Therapy Luisana Watkins, PT [address] [place] [address] 09/29/2022 Virtual Visit Pain & Palliative Marilia Deluna, Care PhD [address] [place], [place] [address] 09/30/2022 Office Visit Family Practice Micheal Aydee Mendez, SKULL SPLITTER FIFTH HAND [address] [place], [place] [address] 10/03/2022 Therapy Visit Physical Therapy Una Reardon, PT [address] [place] [address] 10/10/2022 Hospital Encounter Surgery Lesly Celaya MD [address] [place] [address] 10/10/2022 Office Visit Surgery Lesly Celaya MD [address] [place], [place] [phone] Ninoska Flowers PA-C [address] [place] [address] 10/10/2022 Surgery Surgery Lesly Celaya, EXCISION, MASSES - MD back, abdomen, [address] [place] [address] 10/11/2022 Virtual Visit Clari Su, [place] [phone] [address] [address] 10/14/2022 Appointment Speech Therapy Anabel Chew, ARCHITECTURAL JOB CAPTAIN [facility] 516 [facility] 396 [place], [place] [address] 10/21/2022 Office Visit Pulmonology Obdulio Barrera MD 420 [facility] 276 [place], [place] [address] 10/25/2022 PRE VISIT ENT Charo Burton MD Previsit [address] [place] [address] 10/25/2022 Office Visit Charo Carter MD [address] [place] [address] 10/25/2022 Office Visit ENT Provider, 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 Document Review Specialist 10/28/2022 Appointment Speech Therapy Anabel Chew, CELINE [address] [address] 11/17/2022 Appointment Speech Therapy Anabel Chew SLP [address] [address] 12/23/2022 Office Visit Neurology Colby Yeung MD [address] [place] [address] Scheduled Procedures Name Priority Associated Diagnoses Date/Time EXCISION, MASS, TORSO Lipoma of skin and subcuta neous 10/10/2022 7:30 AM LAUNDRY MACHINE TENDER tissue documented as of this encounter Visit Diagnoses Diagnosis Chest pain, unspecified type Chest tightness Other chest pain S/P laparoscopic hysterectomy Acquired absence of both [...] documented as of this encounter Care Teams Production Repairer Relationship Specialty Start Date End Date Aydee Burton, PCP - General Nurse Practitioner - 05/17/21 SKULL SPLITTER FIFTH HAND Family [address] [place], [place] [phone] Aydee Burton, Assigned PCP 04/28/21 SKULL SPLITTER FIFTH HAND [address] [place], [place] [phone] Louisa Hood, Assigned Neuroscience 07/11/21 SKULL SPLITTER FIFTH HAND Provider 500 [place], [place] [phone] Se Levy, Lead Dental Insurance Biller 08/05/21 05/12/22 Clari Francois Pharmacist Pharmacist 08/06/21 06/07/22 [facility] [address] [place], [place] [phone] [place], Assigned Sleep 08/01/21 Angel Turcios, Provider [address] [place], [place] [address] Lesly Celaya MD Assigned Surgical 09/05/21 [address] Provider [place], [place] [address] Tawana Patel MA [facility] 09/30/21 Worker Ramses Mcpherson Assigned OBGYN 11/07/21 MD Onesimo Provider [address] [place], [place] [phone] Obdulio Barrera MD Critical Care 01/24/[address] [place] [address] Obdulio Barrera, Assigned Pulmonology 02/06/22 MD Provider [address] [place] [address]045 Lesvia Stanley, [facility] 03/03/22 03/03/23 [facility] Therapist [address] [place] [address] Marilia Deluna, PhD Assigned Behavioral 02/20/22 [address] [facility] Provider [place], [place] [address] Niyah Decker, [facility] Pharmacist Pharmacist 03/07/22 420 [facility] [address] [place] [address] Clari Poole, Pharmacist Pharmacist 03/07/22 06/15/22 [facility] [address] [facility] [address] [place] [phone] Lesvia Stanley, GHADA Cardiac Rehabilitation 03/17/22 03/17/23 [facility] Therapist [address] [place], [place] [address] Clari Ruiz Assigned MTM 04/09/22 05/27/22 Jocelyn [facility] Pharmacist [address] [place], [place] [address] Niyah Warner, Lead Dental Insurance Biller Primary Care - CC 06/27/22 RN Delia Avila, Pharmacist Pharmacist 06/07/22 [facility] [address] [place] [address] Delia Avila, Assigned MTM 06/11/2206/24 [facility] Pharmacist [address] [place] [address] Niyah Decker, [facility] Assigned MTM 05/28/22 06/10/22 420 [facility] 812 [place] [address] Mago Swift, [facility] Lead Dental Insurance Biller Wash Helper - 08/05/21 Clinical Niyah Decker [facility] Assigned MTM 06/25/22 07/29/22 420 [facility] 812 Pharmacist [place], [place] [address] Leela Jarvis RP Pharmacist 07/26/22 05/15/[address] [place] [address] [place] [address] Niyah Decker [facility] Assigned MTM 08/10/22 420 [facility] 812 Pharmacist [place], [place] [address] documented as of this encounter
--- OUTSIDE RECORDS SUMMARY | 2022-09-21 04:10 | XMS_ITS | Encounter Summary ---
:1980 Author Organization [place] Address [address] [place] [address] Care Team Providers Name Role Phone Aydee Burton GENERAL PRODUCTION LABORER PLANISHING PRESS OPERATOR Primary Care Provider Aydee Burton APRN PLANISHING PRESS OPERATOR Unavailable [phone] Louisa Hood GENERAL PRODUCTION LABORER PLANISHING PRESS OPERATOR Unavailable [phone] Se Levy RATING EXAMINER Unavailable Unavailable Clari Ruiz [facility] Unavailable Angel Hannah MD Unavailable Lesly Celaya MD Unavailable Tawana Patel MA Unavailable Unavailable Ramses Mcpherson MD Unavailable [phone] Obdulio Barrera MD Unavailable [phone] Mago Swift SPEECH AND DRAMA TEACHER Unavailable Encounter Details Date Type Department Care Team Description 01/31/2022 Allied Health/Nurse [facility] SOB (shortness of Visit Specialty Clinic Jaquan na breath) [address] [facility] [address] [place] [address] Social History Tobacco Use Types Packs/Day Years [...] How often do you attend confucianist or protestant services? Never 08/05/2021 Do you [...] at Date Recorded Female 11/09/2021 7:53 PM GEM SETTER COVID-19 Exposure Response Date Recorded In the last month, have you been in contact with No / Unsure 01/31/2022 7:56 AM CDT someone who was confirmed or suspected to have Coronavirus / COVID-19? documented as of this encounter Plan of Treatment Upcoming Encounters Date Type Specialty Care Team Description 09/26/2022 Appointment Speech Therapy Obdulio Barrera MD [address] [facility] [address] [place] [address] Anabel Chew, SENIOR ECONOMIST [facility] [address] [facility] [address] [place], [place] [id number] 09/27/2022 Therapy Visit Physical Therapy Luisana Watkins, PT [address] [place] [address] 09/29/2022 Virtual Visit Pain & Palliative Marilia Deluna, [facility] PhD [address] [place], [place] [address] 09/30/2022 Office Visit Family Practice Aydee Burton, GENERAL PRODUCTION LABORER PLANISHING PRESS OPERATOR [address] [place], [place] [id number] 10/03/2022 Therapy Visit Physical Therapy Una Reardon, PT [address] [place] [address] 10/10/2022 Hospital Encounter Surgery Lesly Celaya MD [address] [place] [address] 10/10/2022 Office Visit Surgery Lesly Celaya MD [address] [place] [address] Ninoska Flowers PA-Ynes [address] [place] [address] 10/10/2022 Surgery Surgery Lesly Celaya, EXCISION, MASSES - MD back, abdomen, [address] [place] [address] 10/11/2022 Virtual Visit Clari Su, [facility] [id number] [place] [address] 10/14/2022 Appointment Speech Therapy Anabel Chew, SENIOR ECONOMIST [facility] [address] [facility] [address] [place] [address] 10/21/2022 Office Visit Pulmonology Obdulio Barrera MD [address] [facility] [address] [place], [place] [address] 10/25/2022 PRE VISIT ENT Charo Burton MD Previsit [address] [place], [place] [address] 10/25/2022 Office Visit ENT Charo Burton MD [address] [place], [place] [address] 10/25/2022 Office Visit ENT Provider, 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 Actuary 10/28/2022 Appointment Speech Therapy Anabel Chew, SENIOR ECONOMIST [address] [place] [address] 11/17/2022 Appointment Speech Therapy Anabel Chew, SENIOR ECONOMIST [address] [place] [address] 12/23/2022 Office Visit Neurology Colby Yeung MD [address] [id number] Scheduled Procedures Name Priority Associated Diagnoses Date/Time EXCISION, MASS, TORSO Lipoma of skin and subcuta neous 10/10/2022 7:30 AM GEM SETTER tissue documented as of this encounter Procedures Procedure Name Priority Date/Time Associated Comments Diagnosis MA DIFFUSING CAPACITY Routine 01/31/2022 8:48 SOB (shortness o f AM CDT breath) MA PLETHYSMOGRAPHY LUNG Routine 01/31/2022 8:48 SOB (shortness of VOLUMES W/WO AIRWAY AM CDT breath) RESIST MA RESPIRATORY FLOW Routine 01/31/2022 8:48 SOB (shortness of VOLUME LOOP AM CDT breath) MA VITAL CAPACITY TOTAL Routine 01/31/2022 8:48 SOB (shortness of AM CDT breath) PFT GENERAL LAB TESTING Routine 01/31/2022 7:52 SOB (shortness of Results for this AM CDT breath) procedure are i n the results section. documented in this encounter Results Pulmonary function test (01/31/2022 7:52 AM CDT) P athologist Signature FVC-Pred 3.91 L [facility] FVC-Pre 3.42 L [facility] FVC-%Pred-Pre 87 % [facility] FEV1-Pre 2.88 L [facility] FEV1-%Pred-Pre 90 % [facility] [id number] 82 % [facility] [id number] 84 % [facility] FEFMax-Pred 7.24 L/sec [facility] FEFMax-Pre 5.96 L/sec [facility] FEFMax-%Pred-Pr 82 % [facility] e [id number] 3.30 L/sec [facility] [id number] 3.50 L/sec [facility] [id number]-%Pred-P 105 % [facility] re ExpTime-Pre 6.35 sec [facility] FIFMax-Pre 4.33 L/sec [facility] VC-Pred 3.91 L [facility] VC-Pre 3.65 L [facility] VC-%Pred-Pre 93 % [facility] IC-Pred 3.14 L [facility] IC-Pre 2.50 L [facility] IC-%Pred-Pre 79 % [facility] ERV-Pred 0.77 L [facility] ERV-Pre 1.15 L [facility] ERV-%Pred-Pre 149 % [facility] [id number] 84 % [facility] [id number] 84 % [facility] FRCPleth-Pred 2.78 L [facility] FRCPleth-Pre 2.51 L [facility] FRCPleth-%Pred- 90 % [facility] Pre RVPleth-Pred 1.66 L [facility] RVPleth-Pre 1.36 L [facility] RVPleth-%Pred-P 81 % [facility] re TLCPleth-Pred 5.23 L [facility] TLCPleth-Pre 5.00 L [facility] TLCPleth-%Pred- 95 % [facility] Pre DLCOunc-Pred 23.19 ml/min/mmHg [facility] DLCOunc-Pre 25.30 ml/min/mmHg [facility] DLCOunc-%Pred-P 109 % [facility] re DLCOcor-Pre 26.51 ml/min/mmHg [facility] DLCOcor-%Pred-P 114 % [facility] re VA-Pre 4.84 L [facility] VA-%Pred-Pre 91 % [facility] [id number] 82 % [facility] [id number] 79 % [facility] Specimen (Source) Anatomical Collection Method Collection Time Re ceived Time Location / / Volume Laterality 01/31/2022 7:52 AM CDT Narrative [facility] - 01/31/2022 9:09 PM CDT The FEV1 and FVC are reduced but the FEV1/FVC ratio is normal. ??Patient effort was erratic which makes it impossible to adequately evaluate the flow volume loops. ??The inspiratory flow rates are withi n normal limits. ??Lung volumes are with in normal limits. ??The diffusing capacity is norm al. IMPRESSION: Normal Pulmonary Function Interpret with caution, results appear v alid but don't meet ATS criteria. Compared with testing from 11/16/2021 ther e has been a decrease in the FEV1 and FVC. Mariah vIy MD ?This interpretation has been electro nically signed: ??MARIAH IVY 01/31/2022 ??08:51:48 PM? Obdulio Barrera MD PFT ORDERABLES Performing Organization Address City/State/ZIP Code Phon e Number [facility] documented in this encounter Visit Diagnoses Diagnosis SOB (shortness of breath) Shortness of breath Lipoma of skin and subcutaneous tissue Lipoma of other skin and subcutaneous ti ssue documented in this encounter Additional Health Concerns Assessment Noted Time PHQ-9 Depression Total Score: 15 2022 7:02 AM CD T documented as of this encounter Care Teams Business Line Manager Relationship Specialty Start Date End Date Aydee Burton, PCP - General Nurse Practitioner - 05/17/21 GENERAL PRODUCTION LABORER PLANISHING PRESS OPERATOR Family [address] [place], [place] [phone] Aydee Burton, Assigned PCP 04/28/21 GENERAL PRODUCTION LABORER PLANISHING PRESS OPERATOR [address] [place], [place] [phone] Louisa Hood, Assigned Neuroscience 07/11/21 GENERAL PRODUCTION LABORER PLANISHING PRESS OPERATOR Provider [address] [place] [address] Se Levy, Lead Mechanical Research Engineer 08/05/21 05/12/22 Clari Francois Pharmacist Pharmacist 08/06/21 06/07/22 [facility] [address] [place] [address] [place], Assigned Sleep 08/01/21 Angel Turcios, Provider [address] [place] [address] Lesly Celaya MD Assigned Surgical 09/05/21 [address] [place] [address] Tawana Patel MA [facility] 09/30/21 Worker Ramses Mcpherson Assigned OBGYN 11/07/21 MD Onesimo Provider [address] [place] [address] Obdulio Barrera MD Critical Care 01/24/22 [address] [facility] [address] [place] [address] Mago Swift, [facility] Lead Mechanical Research Engineer Children Counselor - 08/05/21 Clinical documented as of this encounter
--- OUTSIDE RECORDS SUMMARY | 2022-09-21 04:10 | XMS_ITS | Encounter Summary ---
:1980 Author Organization [facility] Address [address] [place] [address] Care Team Providers Name Role Phone Aydee Burton LEAD CARGOMAN PERIPATOLOGIST Primary Care Provider Aydee Burton LEAD CARGOMAN PERIPATOLOGIST Unavailable [phone] Louisa Hood LEAD CARGOMAN PERIPATOLOGIST Unavailable [phone] Se Levy TEMPLATE WORKER Unavailable Unavailable Clari Ruiz [facility] Unavailable Angel Hannah MD Unavailable Lesly Celaya MD Unavailable Tawana Patel MA Unavailable Unavailable Ramses Mcpherson MD Unavailable [phone] Obdulio Barrera MD Unavailable [phone] Mago Swift SKI TECHNICIAN Unavailable Encounter Details Date Type Department Care Team Description 01/31/2022 Lab [facility] Cough [address] [place] [address] Social History Tobacco Use Types Packs/Day Years [...] How often do you attend buddhist or lutheran services? Never 08/05/2021 Do you [...] Recorded Female 11/09/2021 7:53 PM REAL ESTATE MARKETING COORDINATOR COVID-19 Exposure Response Date Recorded In the last month, have you been in contact with No / Unsure 01/31/2022 7:56 AM CDT someone who was confirmed or suspected to have Coronavirus / COVID-19? documented as of this encounter Plan of Treatment Upcoming Encounters Date Type Specialty Care Team Description 09/26/2022 Appointment Speech Therapy Obdulio Barrera MD [address] [facility] [address] [place] [address] Anabel Chew SLP [facility] [address] [facility] [address] [place] [address] 09/27/2022 Therapy Visit Physical Therapy Luisana Watkins, PT [address] [place] [address] 09/29/2022 Virtual Visit Pain & Palliative Marilia Deluna Care PhD [address] [place], [place] [address] 09/30/2022 Office Visit Family Practice Aydee Burton, LEAD CARGOMAN PERIPATOLOGIST [address] [place] [address] 10/03/2022 Therapy Visit Physical Therapy Una Reardon, PT [address] [place] [address] 10/10/2022 Hospital Encounter Surgery Lesly Celaya MD [address] [place] [address] 10/10/2022 Office Visit Surgery Lesly Celaya MD [address] [place] [address] Ninoska Flowers, PA-C [address] [facility] [address] [place] [address] 10/10/2022 Surgery Surgery Lesly Celaya, EXCISION, MASSES - MD back, abdomen, [address] right [place] [address] 10/11/2022 Virtual Visit Clari Su, [facility] [id number] [place], [place] [address] 10/14/2022 Appointment Speech Therapy Anabel Chew, LEAN SIX SIGMA SENIOR SPECIALIST [facility] [address] [facility] [address] [place] [address] 10/21/2022 Office Visit Pulmonology Obdulio Barrera MD [address] [facility] [address] [place], [place] [address] 10/25/2022 PRE VISIT ENT Charo Burton MD Previsit [address] [place] [address] 10/25/2022 Office Visit ENT Charo Burton MD [address] [place], [place] [address] 10/25/2022 Office Visit ENT Provider, 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 Diamond Die Maker 10/28/2022 Appointment Speech Therapy Anabel Chew, LEAN SIX SIGMA SENIOR SPECIALIST [address] [place], [place] [address] 11/17/2022 Appointment Speech Therapy Anabel Chew, LEAN SIX SIGMA SENIOR SPECIALIST [address] [place], [place] [address] 12/23/2022 Office Visit Neurology Colby Yeung MD [address] [place] [address] Scheduled Procedures Name Priority Associated Diagnoses Date/Time EXCISION, MASS, TORSO Lipoma of skin and subcuta neous 10/10/2022 7:30 AM REAL ESTATE MARKETING COORDINATOR tissue documented as of this encounter Procedures Procedure Name Priority Date/Time Associated Comments Diagnosis STREPTOCOCCUS PNEUMONIAE Routine 01/31/2022 5:20 Cough Results for this ANTIGEN PM CDT procedure are i n the results section. LEGIONELLA PNEUMOPHILA Routine 01/31/2022 5:20 Cough Re sults for this URINARY ANTIGEN PM CDT procedure ar e in the results section. HYPERSENSITIVITY Routine 01/31/2022 4:45 Cough Results for this PNEUMONITIS 2 PM CDT procedure are in the results section. BLASTOMYCES AGN QUANT Routine 01/31/2022 4:45 Cough Res ults for this EIA BLOOD PM CDT procedure are i n the results section. 1,3-BETA D GLUCAN Routine 01/31/2022 4:45 Cough Results for this FUNGITELL PM CDT procedure are i n the results section. ASPERGILLUS Routine 01/31/2022 4:45 Cough Results for this GALACTOMANNAN ANTIGEN PM CDT proced ure are in the results section. HYPERSENSITIVITY Routine 01/31/2022 4:45 Cough Results for this PNEUMONITIS PM CDT procedure are i n the results section. HISTOPLASMA CAPSULATUM Routine 01/31/2022 4:45 Cough Re sults for this ANTIGEN PM CDT procedure are i n the results section. documented in this encounter Results Strep pneumo Agn Urine or CSF (01/31/2022 5:20 PM CDT) [facility] [employer] Method Time Signature Streptococcus Negative Negative NIKOLAS 02/01/2022 [facility] pneumoniae 9:02 PM CDT LABORATORY antigen Comment: A negative Streptococcus pneumo niae antigen result does not rule out infection with Streptococcus pneumoniae. Specimen Anatomical Collection Method Collection Time Receive d Time (Source) Location / / Volume Laterality Urine MID-STREAM URINE Non-blood 01/31/2022 5:20 PM 01/31 5:20 SPECIMEN / Unknown Collection / CDT PM CDT Unknown Obdulio Barrera MD LAB - MICRO GENERAL ORDERABL ES Performing Organization Address City/State/ZIP Code Phon e Number [facility] ID[facility] LABORATORY [facility] [place] [address] Diag. Lab [address] [facility], [address] Legionella pneumophila antigen urine (01/31/2022 5:20 PM CDT) [facility] [employer] Method Time Signature Legionella Negative Negative NIKOLAS 02/01/2022 [facility] pneumophila 9:02 PM CDT LABORATORY serogroup 1 urinary antigen Comment: Suggests no recent or current i nfection. Infection due to Legionella cannot be ruled out, since other serogroups and species may cause disease, antigen may not be present in urine in early infection, and the level of antigen present in the urine may be below detectable limits of the te st. Specimen Anatomical Collection Method Collection Time Receive d Time (Source) Location / / Volume Laterality Urine MID-STREAM URINE Non-blood 01/31/2022 5:20 PM 01/31 5:20 SPECIMEN / Unknown Collection / CDT PM CDT Unknown Obdulio Barrera MD LAB - MICRO GENERAL ORDERABL ES Performing Organization Address City/State/ZIP Code Phon e Number [facility] IDD LABORATORY [facility] [place] [place] [address] Diag. Lab [address] [facility], [address] Blastomyces Agn Quant EIA Blood (01/31/2022 4:45 PM CDT) [facility] [employer] Method Time Signature See Scanned BLASTOMYCES AGN 02/04/2022 [facility] Result QUANT EIA 7:16 AM CDT DIAGNOSTICS BLOOD-Scanned Specimen Anatomical Collection Method / Collection Time Recei edil Time (Source) Location / Volume Laterality Blood STRUCTURE OF RIGHT Venipuncture / 01/31/2022 4:45 03/2 11/2021 4:45 UPPER LIMB / Unknown PM CDT PM CDT Unknown Narrative This result has an attachment that is no t available. Obdulio Barrera MD LAB - MICRO GENERAL ORDERABL ES Performing Organization Address City/[facility]/ZIP Code Phon e Number [facility] [address] [place] [address] [address] Histoplasma capsulatum antigen (01/31/2022 4:45 PM CDT) [facility] [employer] Method Time Signature See Scanned HISTOPLASMA 02/04/2022 [facility] Result CAPSULATUM 7:50 AM CDT DIAGNOSTICS ANTIGEN-Scanned Specimen Anatomical Collection Method / Collection Time Recei edil Time (Source) Location / Volume Laterality Blood STRUCTURE OF RIGHT Venipuncture / 01/31/2022 4:45 03/2 11/2021 4:45 UPPER LIMB / Unknown PM CDT PM CDT Unknown Narrative This result has an attachment that is no t available. Obdulio Barrera MD LAB - BLOOD ORDERABLES Performing Organization Address City/State/ZIP Code Phon e Number [facility] [address] [place] [address] [address] 1,3 Beta D glucan fungitell (01/31/2022 4:45 PM CDT) [facility] Method Time Signature (1,3)-Lcyx-D-Nuhcv <31 pg/mL 02/02/2022 [facility] n 1:42 PM CDT B-D GLUCAN Negative Negative 02/02/2022 [facility] INTERPRETATION 1:42 PM CDT (1,3) Comment: INTERPRETIVE INFORMATION: (1,3)-beta-D-g lucan (Fungitell) ??Less than 31 pg/mL .................. . Negative ??31-59 pg/mL ......................... . Negative ??60-79 pg/mL ......................... . Indeterminate ??Greater than or equal to 80 pg/mL ... . Positive The Fungitell test is indicated for pres umptive diagnosis of fungal infection and should be used i n conjunction with other diagnostic procedures. This test d oes not detect certain fungal species such as Cryptococ cus, which produce very low levels of (1,3)-slii-J-rslkjt. This test will not detect the zygomycetes, such as Absidia, Mucor, and Rhizopus, which are not known to produce (1,3)-mjvv-R-ljczww. In addition, the ye ast phase of Blastomyces dermatitidis produces little (1,3)-jhxl-C-ygmvum and may not be detec mike by the assay. Performed By: [facility] [address] [place] [address] Staff Air Tactical Officer: Florence Naranjo MD Specimen Anatomical Collection Method / Collection Time Recei edil Time (Source) Location / Volume Laterality Blood STRUCTURE OF RIGHT Venipuncture / 01/31/2022 4:45 03/2 11/2021 4:45 UPPER LIMB / Unknown PM CDT PM CDT Unknown Obdulio Barrera MD LAB - BLOOD ORDERABLES Performing Organization Address City/State/ZIP Code Phon e Number [id number] [place] [phone] [address] [facility] [address] Aspergillus Galactomannan Antigen (01/31/2022 4:45 PM CDT) [facility] [employer] Method Time Signature Aspergillus 0.04 02/04/2022 [facility] Galactomannan 12:04 AM CDT Index Aspergillus Negative Negative 02/04/2022 [facility] Galact AG 12:04 AM CDT Comment: INTERPRETIVE INFORMATION: Aspergillus Ga lactomannan Antigen by EIA Negative results do not exclude the diag nosis of invasive aspergillosis. A single positive test re sult (index equal to or greater than 0.5) should be clinic ally correlated by testing a separate serum specimen bec ause many agents (e.g. foods, antibiotics) may cross-reac t with the test. If invasive aspergillosis is suspected i n high-risk patients, serial sampling is recommended . Performed By: [facility] [address] [place] [address] Staff Air Tactical Officer: Florence Naranjo MD Specimen Anatomical Collection Method / Collection Time Recei edil Time (Source) Location / Volume Laterality Blood STRUCTURE OF RIGHT Venipuncture / 01/31/2022 4:45 03/2 11/2021 4:45 UPPER LIMB / Unknown PM CDT PM CDT Unknown Obdulio Barrera MD LAB - MICRO GENERAL ORDERABL ES Performing Organization Address City/State/ZIP Code Phon e Number [place], [place] [phone] [place] [address] Hypersensitivity Pneumonitis 2 (01/31/2022 4:45 PM CDT) [facility] Method Time Signature Aspergillus None None 02/08/2022 [facility] [employer] [facility] [employer] flavus Ab Detected Detected 3:08 PM CDT Comment: Performed By: [facility] [address] [place] [address] A fumigatus #2 Ab None Detected None Detected 02/08/2022 3:0 8 PM CDT ID [facility] Comment: Performed By: [facility] [address] [place] [address] A fumigatus #3 Ab None Detected None Detected 02/08/2022 3:0 8 PM CDT ID [facility] [employer] Comment: Performed By: [facility] [address] [place] [address] Saccharo viridis Ab None Detected None Detected 02/08/2022 3:08 PM CDT ID [employer] [facility] [employer] Comment: Performed By: [facility] [address] [place] [id number] Thermo candidus Ab None Detected None Detected 02/08/2022 3:08 PM CDT [facility] Comment: Testing includes antibodies directed at Aspergillus flavus, Aspergillus fumigatus #2, Aspergillus fu migatus #3, Saccharomonospora viridis, and Thermoact inomyces candidus. Performed By: [facility] [address] [place] [address] Specimen Anatomical Collection Method / Collection Time Recei edil Time (Source) Location / Volume Laterality Blood STRUCTURE OF RIGHT Venipuncture / 01/31/2022 4:45 03/2 11/2021 4:45 UPPER LIMB / Unknown PM CDT PM CDT Unknown Obdulio Barrera MD LAB - BLOOD ORDERABLES Performing Organization Address City/State/ZIP Code Phon e Number [place], [place] [phone] [address] [address] Hypersensitivity pneumonitis (01/31/2022 4:45 PM CDT) [facility] Method Time Signature Aspergillus None None 02/08/2022 [facility] Fumagatis 1 Detected Detected 3:07 PM CDT Antibody Comment: Performed By: [facility] [address] [place] [address] Aspergillus Fumagatis None Detected None Detected 02/08/2022 3:07 PM [facility] 6 Antibody CDT Comment: Performed By: [facility] [address] [place] [address] Aureo Pullulans None Detected None Detected 02/08/2022 3:07 PM CDT [facility] Comment: Performed By: [facility] [address] [place] [address] [place] serum None Detected None Detected 02/08/2022 3:07 PM CDT [facility] Comment: Performed By: [facility] [address] [place] [address] Micropolyspora Faeni None Detected None Detected 3:07 PM CDT [facility] Comment: Performed By: [facility] [address] [place] [address] Thermoact Vulgaris 1 See Note None Detected 02/08/2022 3:07 PM CDT [facility] Comment: Testing includes antibodies directed at Aureobasidium pullulans, Aspergillus fumigatus #1, Asp ergillus fumigatus #6, Micropolyspora faeni, [place] Serum a nd Thermoactinomyces vulgaris #1. Thermoactinomyces vulgaris #1 testing no t performed due to unsatisfactory reagent performance. A cr edit will be issued for this component. Performed By: [facility] [address] [place] [address] Specimen Anatomical Collection Method / Collection Time Recei edil Time (Source) Location / Volume Laterality Blood STRUCTURE OF RIGHT Venipuncture / 01/31/2022 4:45 03/2 11/2021 4:45 UPPER LIMB / Unknown PM CDT PM CDT Unknown Obdulio Barrera MD LAB - BLOOD ORDERABLES Performing Organization Address City/State/ZIP Code Phon e Number [facility] [place] [phone] [address] [facility] [address] documented in this encounter Visit Diagnoses Diagnosis Cough Lipoma of skin and subcutaneous tissue Lipoma of other skin and subcutaneous ti ssue documented in this encounter Additional Health Concerns Assessment Noted Time PHQ-9 Depression Total Score: 15 2022 7:02 AM CD T documented as of this encounter Care Teams Lumber Carrier Operator Relationship Specialty Start Date End Date Aydee Burton, PCP - General Nurse Practitioner - 05/17/21 LEAD CARGOMAN PERIPATOLOGIST Family [address] [place], [place] [phone] Aydee Burton, Assigned PCP 04/28/21 LEAD CARGOMAN PERIPATOLOGIST [address] [place], [place] [phone] Louisa Hood, Assigned Neuroscience 07/11/21 LEAD CARGOMAN PERIPATOLOGIST Provider [address] [place], [place] [phone] Se Levy, Lead Theatrical Agent 08/05/21 05/12/22 Clari Francois Pharmacist Pharmacist 08/06/21 06/07/22 Jocelyn [facility] [address] [facility] [address] [place], [place] [phone] [place], Assigned Sleep 08/01/21 Angel Turcios, Provider [address] [place] [address] Lesly Celaya MD Assigned Surgical 09/05/21 [address] Provider [place], [place] [address] Tawana Patel MA [facility] 09/30/21 Worker Ramses Mcpherson Assigned OBGYN 11/07/21 MD [facility] Provider [address] [place], [place] [address] Obdulio Barrera MD Critical Care 01/24/[address] [place] [address] [address] [place], [place] [phone] Mago Swift, [facility] Lead Theatrical Agent Orthotic Assistant - 08/05/21 Clinical documented as of this encounter
--- OUTSIDE RECORDS SUMMARY | 2022-09-21 04:10 | XMS_ITS | Encounter Summary ---
:1980 Author Organization [facility] Address [address] [place] [address] Care Team Providers Name Role Phone Aydee Burton SOLE FILLER SERVICE COUNTER CASHIER Primary Care Provider Aydee Burton APRN SERVICE COUNTER CASHIER Unavailable [phone] Louisa Hood SOLE FILLER SERVICE COUNTER CASHIER Unavailable [phone] Se Levy GYM SUPERVISOR Unavailable Unavailable Clari Ruiz [facility] Unavailable Angel Hannah MD Unavailable Lesly Celaya MD Unavailable Tawana Patel MA Unavailable Unavailable Ramses Mcpherson MD Unavailable [phone] Obdulio Barrera MD Unavailable [phone] Mago Swift MEDICAL GENETICS DIRECTOR Unavailable Reason for Visit Reason Comments Mouth/Lip Problem 42 yo F presents with the fo llowing complaint nurse line instructedPt to be seen for thrush onset T-1 worsening Encounter Details Date Type Department Care Team Description 02/05[facility] Lu webster PA-C [address] [address] [facility] [phone] [place] [address] [place] [address] Social History Tobacco Use Types Packs/Day Years [...] How often do you attend protestant or restorationist services? Never 08/05/2021 Do you [...] at Date Recorded Female 11/09/2021 7:53 PM SEASONAL DRIVER COVID-19 Exposure Response Date Recorded In the last month, have you been in contact with No / Unsure 02/05/2022 12:58 PM CDT someone who was confirmed or suspected to have Coronavirus / COVID-19? documented as of this encounter Last Filed Vital Signs Vital Sign Reading Time Taken Comments Blood Pressure 111/75 02/05/2022 1:08 PM CDT Pulse 94 02/05/2022 1:08 PM CDT Temperature 36.7 ??C (98.1 ??F) 02/05/2022 1:08 PM CDT Respiratory Rate 16 02/05/2022 1:08 PM CDT Oxygen Saturation 99% 02/05/2022 1:08 PM CDT Inhaled Oxygen Concentration - - Weight 96.2 kg (212 lb) 02/05/2022 1:08 PM CDT Height - - Body Mass Index 33.2 01/31/2022 12:56 PM CDT documented in this encounter Progress Notes Nancy Scherer PA-C - 02/05/2022 1:00 PM CDT Assessment & Plan: ICD-10-CM 1. Thrush B37.0 fluconazole (DIFLUCAN) 100 MG tablet Plan/Clinical Decision Making: Patient has been on oral steroids, steroid inhaler, and on 2nd course of antibiotic due to cough andasthma, now has developed thrush. No hx of this in past. Reviewed treatment options. She would like to keep it simple with oral course and also concerned that she is susceptible to vaginal yeast. Can take Diflucan 200mg initially and then 7-14 day course. Can do 7 day course if completely resolved. At the end of the encounter, I discussed results, diagnosis, medications. Discussed red flags for immediate return to clinic/ER, as well as indications for follow up if no improvement. Patient understood and agreed to plan. Patient was stable for discharge. Nancy Scherer PA-C on 02/05/2022 at 1:16 PM Subjective: HPI: Marta is a 42 year old female who presents to clinic today for the following health issues: Chief Complaint Patient presents with ??? Mouth/Lip Problem 42 yo F presents with the following complaint nurse line instructedPt to be seen for thrush onset T-1 worsening HPI Patient complains of thrush. She started feeling irritation, scratching back of tongue yesterday. She has been on recent antibiotics and uses steroid inhaler. Has also been on oral steroids. Tongue is white and uvula white. Patient seeing pulmonology due to exacerbation of asthma with cough, treated with antibiotics. Currently on Levaquin. History obtained from chart review and patient. Review of Systems Constitutional: Negative for fever. HENT: Positive for mouth sores. Negative for congestion. Patient Active Problem List Diagnosis ??? PTSD [...] tightness Past Medical History: Diagnosis Date ??? Depressive disorder as teen and on ??? Hypertension 2002 only during ??? Sleep apnea Borderline 4.8 per testing. (<5) Takes longer to wake up. ??? Uncomplicated asthma not sure from being sick Social History Tobacco Use ??? Smoking status: Never Smoker ??? Smokeless tobacco: Never Used Substance Use Topics ??? Alcohol use: Not Currently Comment: None for 1.5 personal choice. Family hx. Objective: Vitals: 02/05/22 1308 BP: 111/75 Pulse: 94 Resp: 16 Temp: 98.1 ??F (36.7 ??C) SpO2: 99% Weight: 96.2 kg (212 lb) Physical Exam EXAM: Pleasant, alert, appropriate appearance. NAD. Head Exam: Normocephalic, atraumatic. Eye Exam: non icteric/injection. Ear Exam: TMs frank without bulging. Normal canals. Normal pinna. Nose Exam: Normal external nose. OroPharynx Exam: Moist mucous membranes. Erythema with white plaques posterior tongue, uvula and pharynx. Neck/Thyroid Exam: No LAD. Chest/Respiratory Exam: CTAB. Cardiovascular Exam: RRR. No murmur or rubs. Results: No results found for any visits on 02/05/22. documented in this encounter Plan of Treatment Upcoming Encounters Date Type Specialty Care Team Description 09/26/2022 Appointment Speech Therapy Obdulio Barrera MD [address] [place] [address] Anabel Chew, BATCH AND FURNACE OPERATOR [facility] 516 [facility] 396 [place], [place] [address] 09/27/2022 Therapy Visit Physical Therapy Luisana Watkins, PT [address] [place] [address] 09/29/2022 Virtual Visit Pain & Palliative Marilia Deluna, [facility] PhD [address] [place], [place] [address] 09/30/2022 Office Visit Family Practice Aydee Burton, SOLE FILLER SERVICE COUNTER CASHIER [address] [place] [address] 10/03/2022 Therapy Visit Physical Therapy Una Reardon, PT [address] [place] [address] 10/10/2022 Hospital Encounter Surgery Lesly Celaya MD [address] [place] [address] 10/10/2022 Office Visit Surgery Lesly Celaya MD [address] [place] [address] Ninoska Flowers PA-C [address] [place] [address] 10/10/2022 Surgery Surgery Lesly Celaya, EXCISION, MASSES - MD back, abdomen, [address] right lower [facility] [place] [address] 10/11/2022 Virtual Visit Clari Su, [facility] [address] [phone] 10/14/2022 Appointment Speech Therapy Anabel Chew, BATCH AND FURNACE OPERATOR [address] [place], [place] [address] 10/21/2022 Office Visit Pulmonology Obdulio Barrera MD [address] [address] 10/25/2022 PRE VISIT ENT Charo Burton MD Previsit [address] [place] [address] 10/25/2022 Office Visit ENT Charo Burton MD [address] [place] [address] 8[address]105 10/25/2022 Office Visit ENT Provider, 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 Edge Stainer Machine 10/28/2022 Appointment Speech Therapy Anabel Chew, BATCH AND FURNACE OPERATOR [address] [address] 11/17/2022 Appointment Speech Therapy Anabel Chew BATCH AND FURNACE OPERATOR [address] [address] 12/23/2022 Office Visit Neurology Colby Yeung MD [address] [address] Scheduled Procedures Name Priority Associated Diagnoses Date/Time EXCISION, MASS, TORSO Lipoma of skin and subcuta neous 10/10/2022 7:30 AM SEASONAL DRIVER tissue documented as of this encounter Visit Diagnoses Diagnosis Thrush - Primary Candidiasis of mouth Lipoma of skin and subcutaneous tissue Lipoma of other skin and subcutaneous ti ssue documented in this encounter Additional Health Concerns Assessment Noted Time PHQ-9 Depression Total Score: 15 2022 7:02 AM CD T documented as of this encounter Care Teams Manager Studio Relationship Specialty Start Date End Date Aydee Burton, PCP - General Nurse Practitioner - 05/17/21 SOLE FILLER SERVICE COUNTER CASHIER Family [address] [place], [place] [phone] Aydee Burton, Assigned PCP 04/28/21 SOLE FILLER SERVICE COUNTER CASHIER [address] [place], [place] [phone] Louisa Hood, Assigned Neuroscience 07/11/21 SOLE FILLER SERVICE COUNTER CASHIER Provider [address] [place], [place] [phone] Se Levy, Lead Software Validation Engineer 08/05/21 05/12/22 [facility] Clari Ruiz Pharmacist Pharmacist 08/06/21 06/07/22 [facility] [address] [place], [place] [phone] [place], Assigned Sleep 08/01/21 Angel Turcios, Provider [address] [place] [address] Lesly Celaya MD Assigned Surgical 09/05/21 [address] Provider [place], [place] [phone] Tawana Patel MA [facility] Health 09/30/21 Worker Ramses Mcpherson Assigned OBGYN 11/07/21 MD Onesimo Provider [address] [place] [address] Obdulio Barrera MD Critical Care 01/24/22 420 [facility] [address] [place], [place] [address] Mago Swift, [facility] Lead Software Validation Engineer Industrial Relations Manager - 08/05/21 Clinical documented as of this encounter
--- OUTSIDE RECORDS SUMMARY | 2022-09-21 04:10 | XMS_ITS | Encounter Summary ---
:1980 Author Organization [facility] Address [address] [place] [address] Care Team Providers Name Role Phone Aydee Burton APRN TERRAZZO FINISHER Primary Care Provider Aydee Burton APRN TERRAZZO FINISHER Unavailable [phone] Louisa Hood GENERAL INTERN TERRAZZO FINISHER Unavailable [phone] Se Leyv ASSOCIATION EXECUTIVE Unavailable Unavailable Clari Ruiz [facility] Unavailable [phone] Angel Hannah MD Unavailable Lesly Celaya MD Unavailable Tawana Patel MA Unavailable Unavailable Ramses Mcpherson MD Unavailable [phone] Obdulio Barrera MD Unavailable [phone] Mago Swift INSULATION PROFESSIONAL Unavailable Encounter Details Date Type Department Care Team Description 01/24/2022 Orders Only [facility] Obdulio Barrera ([facility]) (Primary Dx) Science and Health [address] [place], [place] [address] [place], [place] [address] [phone] Social History Tobacco Use Types Packs/Day Years [...] How often do you attend pentecostalism or evangelical services? Never 08/05/2021 Do you belong to [...] at Date Recorded Female 11/09/2021 7:53 PM CHARGE AUTHORIZER COVID-19 Exposure Response Date Recorded In the last month, have you been in contact with No / Unsure 2022 4:00 PM CDT someone who was confirmed or suspected to have Coronavirus / COVID-19? documented as of this encounter Plan of Treatment Upcoming Encounters Date Type Specialty Care Team Description 09/26/2022 Appointment Speech Therapy Obdulio Barrera MD [address] [place] [address] Anabel Chew, ROTARY ENGINE ASSEMBLER [facility] 516 [facility] 396 [place], [place] [address] 09/27/2022 Therapy Visit Physical Therapy Luisana Watkins, PT [address] [place] [address] 09/29/2022 Virtual Visit Pain & Palliative Marilia Deluna, [facility] PhD [address] [place], [place] [address] 09/30/2022 Office Visit Family Practice Aydee Burton, GENERAL INTERN TERRAZZO FINISHER [address] [place] [address] 10/03/2022 Therapy Visit Physical Therapy Una Reardon, PT [address] [place] [address] 10/10/2022 Hospital Encounter Surgery Lesly Celaya MD [address] [place] [address] 10/10/2022 Office Visit Surgery Lesly Celaya MD [address] [place] [address] Ninoska Flowers PA-C [address] [place] [address] 10/10/2022 Surgery Surgery Lesly Celaya, EXCISION, MASSES - MD back, abdomen, [address] right lower [facility] [place] [address] 10/11/2022 Virtual Visit Clari Su, [facility] [address] [phone] 10/14/2022 Appointment Speech Therapy Anabel Chew, ROTARY ENGINE ASSEMBLER [address] [place], [place] [address] 10/21/2022 Office Visit Pulmonology Obdulio Barrera MD 420 [facility] 276 [place], [place] [address] 10/25/2022 PRE VISIT ENT Charo Burton MD Previsit [address] [place] [address] 10/25/2022 Office Visit ENT Charo Burton MD [address] [place] [address]67[address] 10/25/2022 Office Visit ENT Provider, 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 Stonework Supervisor 10/28/2022 Appointment Speech Therapy Anabel Chew, ROTARY ENGINE ASSEMBLER [address] [place], [place] [address] 11/17/2022 Appointment Speech Therapy Anabel Chew ROTARY ENGINE ASSEMBLER [address] [address] 12/23/2022 Office Visit Neurology Colby Yeung MD [address] [address] Scheduled Procedures Name Priority Associated Diagnoses Date/Time EXCISION, MASS, TORSO Lipoma of skin and subcuta neous 10/10/2022 7:30 AM CHARGE AUTHORIZER tissue documented as of this encounter Results Pulmonary function test (01/31/2022 7:52 AM CDT) athologist Signature FVC-Pred 3.91 L [facility] PFT FVC-Pre 3.42 L [facility] PFT FVC-%Pred-Pre 87 % [facility] PFT FEV1-Pre 2.88 L [facility] PFT FEV1-%Pred-Pre 90 % [facility] PFT [id number] 82 % [facility] PFT [id number] 84 % [facility] PFT FEFMax-Pred 7.24 L/sec [facility] PFT FEFMax-Pre 5.96 L/sec [facility] PFT FEFMax-%Pred-Pr 82 % [facility] PFT e [id number] 3.30 L/sec [facility] PFT [id number] 3.50 L/sec [facility] PFT [id number]-P 105 % [facility] PFT re ExpTime-Pre 6.35 sec [facility] PFT FIFMax-Pre 4.33 L/sec [facility] PFT VC-Pred 3.91 L [facility] PFT VC-Pre 3.65 L [facility] PFT VC-%Pred-Pre 93 % [facility] PFT IC-Pred 3.14 L [facility] PFT IC-Pre 2.50 L [facility] PFT IC-%Pred-Pre 79 % [facility] PFT ERV-Pred 0.77 L [facility] PFT ERV-Pre 1.15 L [facility] PFT ERV-%Pred-Pre 149 % [facility] PFT [id number] 84 % [facility] PFT [id number] 84 % [facility] PFT FRCPleth-Pred 2.78 L [...] [facility] PFT VA-%Pred-Pre 91 % [facility] PFT [id number] 82 % [facility] PFT [id number] 79 % [facility] PFT Specimen (Source) Anatomical [...] decrease in the FEV1 and FVC. Mariah Ivy MD ?This interpretation has been electro nically signed: ??MARIAH IVY 01/31/2022 ??08:51:48 PM? Obdulio Barrera MD PFT ORDERABLES Performing Organization Address City/State/ZIP Code Phon e Number [facility] PFT documented in this encounter Visit Diagnoses Diagnosis SOB (shortness of breath) - Primary Shortness of breath SOB (shortness of breath) Shortness of breath Lipoma of skin and subcutaneous tissue Lipoma of other skin and subcutaneous ti ssue documented in this encounter Additional Health Concerns Assessment Noted Time PHQ-9 Depression Total Score: 15 2022 7:02 AM CD T documented as of this encounter Care Teams Bale Tie Machine Operator Relationship Specialty Start Date End Date Aydee Burton, PCP - General Nurse Practitioner - 05/17/21 GENERAL INTERN TERRAZZO FINISHER Family [address] [place] [address] Aydee Burton, Assigned PCP 04/28/21 GENERAL INTERN TERRAZZO FINISHER [address] [place], [place] [address] Louisa Hood, Assigned Neuroscience 07/11/21 GENERAL INTERN TERRAZZO FINISHER Provider [address] [place], [place] [address] Se Levy, Lead Young Adult Librarian 08/05/21 05/12/22 ASSOCIATION EXECUTIVEClari Ordonez Pharmacist Pharmacist 08/06/21 06/07/22 Jocelyn, [facility] [address] [place], [place] [phone] [place], Assigned Sleep 08/01/21 Angel Turcios, Provider [address] [place], [place] [address] Lesly Celaya MD Assigned Surgical 09/05/21 [address] [place] [address] Tawana Patel MA [facility] 09/30/21 Worker Ramses Mcpherson Assigned OBGYN 11/07/21 MD Onesimo Provider [address] [place], [place] [address] Obdulio Barrera MD Critical Care 01/24/22 420 [facility] [address] [place], [place] [address] Mago Swift, [facility] Lead Young Adult Librarian Range Manager - 08/05/21 Clinical documented as of this encounter
--- OUTSIDE RECORDS SUMMARY | 2022-09-21 04:10 | XMS_ITS | Encounter Summary ---
:1980 Author Organization [facility] Address [address] [place] [address] Care Team Providers Name Role Phone Aydee Burton RELATIONS MANAGER EDUCATION REPORTER Primary Care Provider [phone] Aydee Burton APRN EDUCATION REPORTER Unavailable [phone] Louisa Hood RELATIONS MANAGER EDUCATION REPORTER Unavailable [phone] Se Levy TRANSPORT COMPANY MANAGER Unavailable Unavailable Clari Ruiz [facility] Unavailable [phone] Angel Hannah MD Unavailable Lesly Celaya MD Unavailable Tawana Patel MA Unavailable Unavailable Ramses Mcpherson MD Unavailable [phone] Obdulio Barrera MD Unavailable [phone] Mago Swift MUSCULOSKELETAL PHYSIOTHERAPIST Unavailable Encounter Details Date Type Department Care Team Description 2022 Travel Social History Tobacco Use Types Packs/Day [...] er 08/05/2021 How often do you attend lutheran or amish services? Never 08/05/2021 Do you belong to any clubs or organizations such as lutheran N o 08/05/2021 groups, unions, fraternal or [...] at Date Recorded Female 11/09/2021 7:53 PM VULCANIZER COVID-19 Exposure Response Date Recorded In the last month, have you been in contact with No / Unsure 2022 4:00 PM CDT someone who was confirmed or suspected to have Coronavirus / COVID-19? documented as of this encounter Plan of Treatment Upcoming Encounters Date Type Specialty Care Team Description 09/26/2022 Appointment Speech Therapy Obdulio Barrera MD 420 [facility] 276 [place], [place] [address] Anabel Chew, SHEET MUSIC SALESPERSON [address] [place], [place] [address] 09/27/2022 Therapy Visit Physical Therapy Luisana Watkins, PT [address] [place] [address] 09/29/2022 Virtual Visit Pain & Palliative Marilia Deluna, [facility] PhD [address] [place], [place] [address] 09/30/2022 Office Visit Family Practice Aydee Burton, RELATIONS MANAGER EDUCATION REPORTER [address] [place], [place] [address] 10/03/2022 Therapy Visit Physical Therapy Una Reardon, PT [address] [place] [phone] 10/10/2022 Hospital Encounter Surgery Lesly Celaya MD [address] [place] [address] 10/10/2022 Office Visit Surgery Lesly Celaya MD [address] [place] [address] Ninoska Flowers, PA-C [address] [place] [address] 10/10/2022 Surgery Surgery Lesly Celaya, EXCISION, MASSES - MD back, abdomen, [address] right lower [facility] [place] [address] 10/11/2022 Virtual Visit Clari Su, [facility] [address] [place] [phone] [place] [address] 10/14/2022 Appointment Speech Therapy Anabel Chew, SHEET MUSIC SALESPERSON [facility] 516 [facility] 396 [place] [address] 10/21/2022 Office Visit Pulmonology Obdulio Barrera MD [address] [address] 10/25/2022 PRE VISIT ENT Charo Burton MD Previsit [address] [place] [address] 10/25/2022 Office Visit ENT Charo Burton MD [address] [place] [address] 10/25/2022 Office Visit ENT Provider, Jeannette 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 Career Guidance Counselor 10/28/2022 Appointment Speech Therapy Anabel Chew, SHEET MUSIC SALESPERSON [address] [address] 11/17/2022 Appointment Speech Therapy Anabel Chew, SHEET MUSIC SALESPERSON [address] [address] 12/23/2022 Office Visit Neurology Colby Yeung MD [address] [address] Scheduled Procedures Name Priority Associated Diagnoses Date/Time EXCISION, MASS, TORSO Lipoma of skin and subcuta neous 10/10/2022 7:30 AM VULCANIZER tissue documented as of this encounter Visit Diagnoses Not on filedocumented in this encounter Additional Health Concerns Assessment Noted Time PHQ-9 Depression Total Score: 15 2022 7:02 AM CD T documented as of this encounter Care Teams Piano Machine Operator Relationship Specialty Start Date End Date Aydee Burton, PCP - General Nurse Practitioner - 05/17/21 RELATIONS MANAGER EDUCATION REPORTER Family [address] [place] [phone] Aydee Burton, Assigned PCP 04/28/21 RELATIONS MANAGER [address] [address] Louisa Hood, Assigned Neuroscience 07/11/21 RELATIONS MANAGER EDUCATION REPORTER Provider [address] [place], [place] [address] Se Levy, Lead Photographer'S Assistant 08/05/21 05/12/22 TRANSPORT COMPANY MANAGER Clari Ruiz Pharmacist Pharmacist 08/06/21 06/07/22 Jocelyn, [facility] [address] [place], [place] [address] [place], Assigned Sleep 08/01/21 Angel Turcios, Provider [address] [place], [place] [address] Lesly Celaya MD Assigned Surgical 09/05/21 [address] Provider [place], [place] [address] Tawana Patel MA [facility] 09/30/21 Worker Ramses Mcpherson Assigned OBGYN 11/07/21 MD Onesimo Provider [address] [place], [place] [address] Obdulio Barrera MD Critical Care 01/24/22 420 [facility] [address] [place], [place] [address] Mago Swift, MUSCULOSKELETAL PHYSIOTHERAPIST Lead Photographer'S Assistant Cemetery Worker - 08/05/21 Clinical documented as of this encounter
--- OUTSIDE RECORDS SUMMARY | 2022-09-21 04:10 | XMS_ITS | Encounter Summary ---
:1980 Author Organization [place] Address [address] [place] [address] Care Team Providers Name Role Phone Aydee Burton BELLHOP BLOW MOLDING MACHINE TENDER Primary Care Provider Aydee Burton APRN BLOW MOLDING MACHINE TENDER Unavailable [phone] Louisa Hood BELLHOP BLOW MOLDING MACHINE TENDER Unavailable [phone] Se Levy ADVERTISING AGENT Unavailable Unavailable Clrai Ruiz [facility] Unavailable [phone] Angel Hannah MD Unavailable Lesly Celaya MD Unavailable Tawana Patel MA Unavailable Unavailable Ramses Mcpherson MD Unavailable [phone] Obdulio Barrera MD Unavailable [phone] Mago Swift GRANULATOR Unavailable Encounter Details Date Type Department Care Team Description 01/30/2022 Travel Social History Tobacco Use Types Packs/Day [...] How often do you attend zoroastrianism or latter-day services? Never 08/05/2021 Do you [...] at Date Recorded Female 11/09/2021 7:53 PM QUAL FIELD MANAGER COVID-19 Exposure Response Date Recorded In the last month, have you been in contact with No / Unsure 01/30/2022 1:07 PM CDT someone who was confirmed or suspected to have Coronavirus / COVID-19? documented as of this encounter Plan of Treatment Upcoming Encounters Date Type Specialty Care Team Description 09/26/2022 Appointment Speech Therapy Obdulio Barrera MD [address] [facility] [address] [place], [place] [address] Anabel Chew, STORE HOST [address] [place], [place] [address] 09/27/2022 Therapy Visit Physical Therapy Luisana Watkins, PT [address] [place] [address] 09/29/2022 Virtual Visit Pain & Palliative Marilia Deluna, [facility] PhD [address] [place], [place] [address] 09/30/2022 Office Visit Family Practice Aydee Burton, BELLHOP BLOW MOLDING MACHINE TENDER [address] [place], [place] [address] 10/03/2022 Therapy Visit Physical Therapy Una Reardon, PT [address] [place] [phone] 10/10/2022 Hospital Encounter Surgery Lesly Celaya MD [address] [place] [address] 10/10/2022 Office Visit Surgery Lesly Celaya MD [address] [place] [address] Ninoska Flowers, PA-C [address] [place] [address] 10/10/2022 Surgery Surgery Lesly Celaya, EXCISION, MASSES - MD back, abdomen, [address] right lower [facility] [place] [address] 10/11/2022 Virtual Visit Clari Su, [facility] [address] 1474382 [place] [address] 10/14/2022 Appointment Speech Therapy Anabel Chew, STORE HOST [facility] [address] [facility] [place] [address] 10/21/2022 Office Visit Pulmonology Obdulio Barrera MD [address] [address] 10/25/2022 PRE VISIT ENT Charo Burton MD Previsit [address] [place] [address] 10/25/2022 Office Visit ENT Charo Burton MD [address] [place] [address] 10/25/2022 Office Visit ENT Provider, Jeannette 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 Dispensary Attendant 10/28/2022 Appointment Speech Therapy Anabel Chew, STORE HOST [address] [address] 11/17/2022 Appointment Speech Therapy Anabel Chew, STORE HOST [address] [address] 12/23/2022 Office Visit Neurology Colby Yeung MD [address] [id number] Scheduled Procedures Name Priority Associated Diagnoses Date/Time EXCISION, MASS, TORSO Lipoma of skin and subcuta neous 10/10/2022 7:30 AM QUAL FIELD MANAGER tissue documented as of this encounter Visit Diagnoses Not on filedocumented in this encounter Additional Health Concerns Assessment Noted Time PHQ-9 Depression Total Score: 15 2022 7:02 AM CD T documented as of this encounter Care Teams Professor Of Special Education Relationship Specialty Start Date End Date Aydee Burton, PCP - General Nurse Practitioner - 05/17/21 BELLHOP BLOW MOLDING MACHINE TENDER Family [address] [place] [phone] Aydee Burton, Assigned PCP 04/28/[address] [address] Louisa Hood, Assigned Neuroscience 07/11/21 BELLHOP BLOW MOLDING MACHINE TENDER Provider 500 [place], [place] [address] Se Levy, Lead Butadiene Converter Operator 08/05/21 05/12/22 ADVERTISING AGENT Clari Ruiz Pharmacist Pharmacist 08/06/21 06/07/22 Jocelyn, [facility] [address] [place], [place] [address] [place], Assigned Sleep 08/01/21 Angel Turcios, Provider [address] [place], [place] [address] Lesly Celaya MD Assigned Surgical 09/05/21 [address] Provider [place], [place] [address] Tawana Patel MA [facility] 09/30/21 Worker Ramses Mcpherson Assigned OBGYN 11/07/21 MD Onesimo Provider [address] [place], [place] [address] Obdulio Barrera MD Critical Care 01/24/22 420 [facility] 276 [place], [place] [address] Mago Swift, GRANULATOR Lead Butadiene Converter Operator Appointment Specialist - 08/05/21 Clinical documented as of this encounter
--- OUTSIDE RECORDS SUMMARY | 2022-09-21 04:10 | XMS_ITS | Encounter Summary ---
:1980 Author Organization [place] Address [address] [place] [address] Care Team Providers Name Role Phone Aydee Burton GRINDER OUTSIDE DIAMETER STRUCTURES ENGINEER Primary Care Provider Aydee Burton GRINDER OUTSIDE DIAMETER STRUCTURES ENGINEER Unavailable [phone] Louisa Hood GRINDER OUTSIDE DIAMETER STRUCTURES ENGINEER Unavailable [phone] Se Levy ART THERAPY CERTIFIED SUPERVISOR Unavailable Unavailable Clari Ruiz [facility] Unavailable [phone] Angel Hannah MD Unavailable Lesly Celaya MD Unavailable Tawana Patel MA Unavailable Unavailable Ramses Mcpherson MD Unavailable [phone] Obdulio Barrera MD Unavailable [phone] Mago Swift UX LEAD Unavailable Reason for Visit Reason Comments New Patient Cough/ Wheezing Consultation (Priority: 1-2 Weeks) - Closed Specialty Diagnoses / Procedures Referred By Contact Refer red To Contact Pulmonary Disease Diagnoses Cough Wheezing Pulmonary air trapping Aydee Burton [facility] GRINDER OUTSIDE DIAMETER STRUCTURES ENGINEER [place] [address] [place] [address] [address] [place] [address] Phone: Referral ID Status Reason Start Date Expiration Date Visits Requ ested Visits Authorized [id number] Closed 01/19/2022 01/19/2023 1 1 Encounter Details Date Type Department Care Team Description 01/31/2022 Office Visit [facility] Aydee Burton Ch, APRN STRUCTURES ENGINEER [address] [place], [place] [address] Cough (Primary Dx); Specialty Clinic Obdulio Barrera MD 420 [facility] 276 [place] [address] Wheezing; [place] [facility] air trapping [address] [facility] [address] [place] [address] Social History Tobacco Use Types Packs/Day [...] How often do you attend catholic or synagogue services? 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 documented as of this encounter Last Filed Vital Signs Vital Sign Reading Time Taken Comments Blood Pressure 110/75 01/31/2022 12:56 PM CDT Pulse 107 01/31/2022 12:56 PM CDT Temperature - - Respiratory Rate - - Oxygen Saturation 99% 01/31/2022 12:56 PM CDT Inhaled Oxygen Concentration - - Weight 95.3 kg (210 lb) 01/31/2022 12:56 PM CDT Height 170.2 cm (5' 7) 01/31/2022 12:56 PM CDT Body Mass Index 32.89 01/31/2022 12:56 PM CDT documented in this encounter Patient Instructions Patient InstructionsThObdulio carlisle MD - 01/31/2022 1:00 PM CDT Thank you for coming to pulmonary clinic. Your pulmonary function tests are normal. Your chest imaging shows air-trapping. Which can be consistent with asthma. I would like you to continue current inhalers. I would like you to get some blood work to look for atypical infection or mold exposure. I willsee you back in 3 months. documented in this encounter Progress Notes Obdulio Barrrea MD - 01/31/2022 1:00 PM CDT Pulmonary Clinic Note Date of Service: 01/31/2022 Chief Complaint Patient presents with ??? New Patient Cough/ Wheezing A/P: 42F being seen for cough and wheeze. Air-trapping seen on CT. Normal PFTs. In part, this seems related to asthma. At this time, I would continue ICS-LABA, given that she just recently started, and prn albuterol. May consider step-up therapy if still not responding in the coming weeks. Additionally, I am concerned about atypical infection. Although CT is normal, so less likely. Regardless, I would like to see lab work-up to look for atypical infection and trial 10d levofloxacin and see if this helps. History: 42F being seen for cough and wheezing. Prescribed budesonide-formoterol by PCP 01/19. Has prn albuterol. Was seen by PCP 01/14 with same and CP. Pt has had recent lap hysterectomy, D- dimer sent and noted to be positive, sent to ED for further eval. CTPE w/o PE, but did show mild air-trapping. Discharged w/ 5d prednisone. Prednisone did not help. Azithromycin will help. Seen back in ED 01/21 for cough. Givenduoneb and discharged w/ benzonatate. Since, gradual improvement. Still coughing, dry. COLE w/ stairs. No SOB at rest. Nebulizer works the best, using twice daily on average. Using Symbicort twice daily. Albuterol ~1-2x/day. Occasionally hears wheeze. Has chest tightness. Has nocturnal cough. Nocturnal SOB. Has hoarseness after prolonged coughing. This happened once previously after an illness, many years ago. She cannot recall being ill prior to this episode. No definite F/C, sick contacts, rhinorrhea, post-nasal gtt, throat tightness, GERD, palpitations, dysphagia, ab pain, N/V, LE edema. No personal hx of lung disease. Father w/ COPD, but he smokes. 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 BP 110/75 (BP Location: Left arm, Patient Position: Sitting, Cuff Size: Adult Large) Pulse 107 Ht 1.702 m (5' 7) Wt 95.3 kg (210 lb) LMP 12/11/2021 (Exact Date) SpO2 99% BMI 32.89 kg/m?? Gen: well-appearing HEENT: Mallampati I Card: RRR Pulm: clear bilaterally Abd: soft MSK: no edema Skin: no obvious rash Psych: normal affect Neuro: alert and oriented Labs: Personally reviewed Abs eos (01/2022) - 300 Imaging/Studies: Personally reviewed CXR (01/2022) - clear CTPE (01/2022) - mild air-trapping, mild fibroatelectasis, no PE PFTs (11/2021) - normal pulmonary function TTE (10/2021) - EF 55-60% Past Medical History: Diagnosis Date ??? Depressive [...] GENITOURINARY SURGERY Tubal ligation and ablasion ??? REDYE HAND SURGERY not sure tubal ligation and ablasion ? ? HEAD & NECK SURGERY Sinus ??? LAPAROSCOPIC HYSTERECTOMY TOTAL Bilateral 12/28/2021 Procedure: TOTAL LAPAROSCOPIC HYSTERECTOMY WITH BILATERAL SALPINGECTOMY; Surgeon: Ramses Mcpherson MD; Location: [facility] OR ??? ORTHOPEDIC SURGERY 2020 radial head fracture 3 screws, left elbow ??? RADIOFREQUENCY ABLATION, UTERINE 2018 Family History Problem Relation Age of Onset ??? Diabetes Paternal Grandfather ??? Depression Paternal Grandfather ??? Hypertension Father ??? Cerebrovascular Disease Father ??? Depression Father ??? Anxiety Disorder Father ??? Substance Abuse Father ??? Asthma Father ??? Cerebrovascular Disease Maternal Grandmother ??? Depression Sister ??? Anxiety Disorder Sister ??? Substance Abuse Sister ??? Asthma Sister ??? Depression Mother ??? Anxiety Disorder Mother ??? Substance Abuse Mother ??? Asthma Mother ??? Depression Daughter ??? Anxiety Disorder Daughter [...] personal choice. Family hx. ??? Drug use: Never ??? Sexual activity: Yes Partners: Male control/protection: [...] with Friends and Family: Never ??? Attends Mu-Ism Services: Never ??? Active Member of Clubs or Organizations: No ??? Attends Club or Organization Meetings: Not on file ??? Marital Status: Intimate Partner Violence: Not on file Housing Stability: High Risk ??? Unable to Pay for Housing in the Last Year: Yes ??? Number of Places Lived in the Last Year: 1 ??? Unstable Housing in the Last Year: No 50 minutes spent reviewing chart, reviewing test results, talking with and examining patient, formulating plan, and documentation on the day of the encounter. Obdulio Barrera MD Pulmonary and Critical Care Medicine [facility] documented in this encounter Nursing Notes Crista Holden - 01/31/2022 1:00 PM CDT Chief Complaint Patient presents with ??? New Patient Cough/ Wheezing Vitals: 01/31/22 1256 BP: 110/75 BP Location: Left arm Patient Position: Sitting Cuff Size: Adult Large Pulse: 107 SpO2: 99% Weight: 95.3 kg (210 lb) Height: 1.702 m (5' 7) Body mass index is 32.89 kg/m??. Crista Holden MA documented in this encounter Plan of Treatment Upcoming Encounters Date Type Specialty Care Team Description 09/26/2022 Appointment Speech Therapy Obdulio Barrera MD [address] [facility] [address] [place], [place] [address] Anabel Chew, PROPERTY MAINTENANCE SUPERVISOR [address] [place] [address] 09/27/2022 Therapy Visit Physical Therapy Luisana Watkins, PT [address] [place] [address] 09/29/2022 Virtual Visit Pain & Palliative Marilia Deluna, [facility] PhD [address] [place] [address] 09/30/2022 Office Visit Family Practice Aydee Burton, GRINDER OUTSIDE DIAMETER STRUCTURES ENGINEER [address] [place] [phone] 10/03/2022 Therapy Visit Physical Therapy Una Reardon, PT [address] [place] [address] 10/10/2022 Hospital Encounter Surgery Lesly Celaya MD [address] [place], [place] [phone] 10/10/2022 Office Visit Surgery Lesly Celaya MD [address] [place], [place] [phone] Ninoska Flowers PA-C [address] [place], [place] [address] 10/10/2022 Surgery Surgery Lesly Celaya, EXCISION, MASSES - MD back, abdomen, [address] extremity [place], [place] [phone] 10/11/2022 Virtual Visit Pharm Clari Stoll, [place] [phone] [address] 10/14/2022 Appointment Speech Therapy Anabel Chew, PROPERTY MAINTENANCE SUPERVISOR [address] [address] 10/21/2022 Office Visit Pulmonology Obdulio Barrera MD [address] [place] [address] 10/25/2022 PRE VISIT ENT Cahro Burton MD Previsit [address] [place] [address] 10/25/2022 Office Visit Charo Carter MD [address] [place] [address] 10/25/2022 Office Visit ENT Provider, Jeannette 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 Hand Cigar Making Supervisor 10/28/2022 Appointment Speech Therapy Anabel Chew, PROPERTY MAINTENANCE SUPERVISOR [address] [address] 11/17/2022 Appointment Speech Therapy Anabel Chew, PROPERTY MAINTENANCE SUPERVISOR [facility] [address] [facility] [address] [place] [address] 12/23/2022 Office Visit Neurology Colby Yeung MD [address] [place] [address] Scheduled Procedures Name Priority Associated Diagnoses Date/Time EXCISION, MASS, TORSO Lipoma of skin and subcuta neous 10/10/2022 7:30 AM USED CAR SALES MANAGER tissue documented as of this encounter Results Strep pneumo Agn Urine or CSF (01/31/2022 5:20 PM CDT) [facility] Method Time Signature Streptococcus Negative Negative NIKOLAS [...] Code Phon e Number [facility] [place] [place] [phone] Diag. Lab [address] [facility], [address]297 Legionella pneumophila antigen urine (01/31/2022 5:20 PM CDT) [facility] Method Time Signature Legionella Negative Negative NIKOLAS [...] may be below detectable limits of the st. Specimen Anatomical Collection Method Collection Time Receive d Time (Source) Location / / Volume Laterality Urine MID-STREAM URINE Non-blood 01/31/2022 5:20 PM 01/31 5:20 SPECIMEN / Unknown Collection / CDT PM CDT Unknown Obdulio Barrera MD LAB - MICRO GENERAL ORDERABL ES Performing Organization Address City/State/ZIP Code Phon e Number [facility] [place] [place] [address] Diag. Lab [address] [facility], Room [address]297 Blastomyces Agn Quant EIA Blood (01/31/2022 4:45 PM CDT) [facility] Method Time Signature See Scanned BLASTOMYCES AGN [...] MICRO GENERAL ORDERABL ES Performing Organization Address City/[facility]/ZIP Code Phon e Number [facility] [address] [place] [address] [address] Histoplasma capsulatum antigen (01/31/2022 4:45 PM CDT) [facility] Method Time Signature See Scanned HISTOPLASMA 02/04/2022 [...] Phon e Number [facility] [address] [place] [address] [address] 1,3 Beta D glucan fungitell (01/31/2022 4:45 PM CDT) [facility] Method Time Signature (1,3)-Pifj-O-Bnzcp <31 pg/mL 02/02/2022 [facility] n 1:42 [...] cus, which produce very low levels of (1,3)-ajch-C-tvxxxc. This test will not detect the zygomycetes, such as Absidia, Mucor, and Rhizopus, which are not known to produce (1,3)-jxhi-T-bbjckt. In addition, the ye ast phase of Blastomyces dermatitidis produces little (1,3)-jawr-B-rlwbst and may not be detec mike by the assay. Performed By: [facility] [address] [place] [address] Marketing Budget Analyst: Florence Naranjo MD Specimen Anatomical Collection Method / Collection Time Recei edil Time (Source) Location / Volume Laterality Blood STRUCTURE OF RIGHT Venipuncture / 01/31/2022 4:45 03/2 11/2021 4:45 UPPER LIMB / Unknown PM CDT PM CDT Unknown Obdulio Barrera MD LAB - BLOOD ORDERABLES Performing Organization Address City/State/ZIP Code Phon e Number [facility] [place], [place] [phone] [address] [facility] [address] Aspergillus Galactomannan Antigen (01/31/2022 4:45 PM CDT) [facility] Method Time Signature Aspergillus 0.04 02/04/2022 [facility] Galactomannan 12:04 AM CDT Index Aspergillus Negative Negative 02/04/2022 [facility] Galact AG 12:04 AM CDT Comment: [...] serial sampling is recommended . Performed By: [facility] [address] [place] [address] Marketing Budget Analyst: Florence Naranjo MD Specimen Anatomical Collection Method / Collection Time Recei edil Time (Source) Location / Volume Laterality Blood STRUCTURE OF RIGHT Venipuncture / 01/31/2022 4:45 03/2 11/2021 4:45 UPPER LIMB / Unknown PM CDT PM CDT Unknown Obdulio Barrera MD LAB - MICRO GENERAL ORDERABL ES Performing Organization Address City/State/ZIP Code Phon e Number [place], [place] [phone] [address] [phone] Hypersensitivity Pneumonitis 2 (01/31/2022 4:45 PM CDT) [facility] Method Time Signature Aspergillus None None 02/08/2022 [facility] flavus Ab Detected Detected 3:08 PM CDT Comment: Performed By: [facility] [address] [place] [address] A fumigatus #2 Ab None Detected None Detected 02/08/2022 3:0 8 PM CDT Stream Comment: Performed By: [facility] [address] [place] [address] A fumigatus #3 Ab None Detected None Detected 02/08/2022 3:0 8 PM CDT Stream Comment: Performed By: [facility] [address] [place] [address] Saccharo viridis Ab None Detected None Detected 02/08/2022 3:08 PM CDT [facility] Comment: Performed By: [facility] [address] [place] [address] Thermo candidus Ab None Detected None Detected 02/08/2022 3:08 PM CDT [facility] Comment: Testing includes antibodies directed at Aspergillus flavus, Aspergillus fumigatus #2, Aspergillus fu migatus #3, Saccharomonospora viridis, and Thermoact inomyces candidus. Performed By: [facility] [address] [place] [address] Specimen Anatomical Collection Method / Collection Time Recei edil Time (Source) Location / Volume Laterality Blood STRUCTURE OF RIGHT Venipuncture / 01/31/2022 4:45 2 11/2021 4:45 UPPER LIMB / Unknown PM CDT PM CDT Unknown Obdulio Barrera MD LAB - BLOOD ORDERABLES Performing Organization Address City/State/ZIP Code Phon e Number [place], [place] [phone] [address] [address] Hypersensitivity pneumonitis (01/31/2022 4:45 PM CDT) [facility] Method Time Signature Aspergillus None None 02/08/2022 [facility] Fumagatis 1 Detected Detected 3:07 PM CDT Antibody Comment: Performed By: [facility] [address] [place] [address] Aspergillus Fumagatis None Detected None Detected 02/08/2022 3:07 PM [facility] 6 Antibody CDT Comment: Performed By: [facility] [address] [place] [address] Aureo Pullulans None Detected None Detected 02/08/2022 3:07 PM CDT [facility] Comment: Performed By: [facility] [address] [place] [address] [place] serum None Detected None Detected 02/08/2022 3:07 PM CDT [facility] Comment: Performed By: [facility] [address] [place] [address] Micropolyspora Faeni None Detected None Detected 3:07 PM CDT [facility] Comment: Performed By: [facility] [address] [place] [address] Thermoact Vulgaris 1 See Note None Detected 02/08/2022 3:07 PM CDT [facility] Comment: Testing includes antibodies directed at Aureobasidium pullulans, Aspergillus fumigatus #1, Asp ergillus fumigatus #6, Micropolyspora faeni, [place] Serum a nd Thermoactinomyces vulgaris #1. Thermoactinomyces vulgaris #1 testing no t performed due to unsatisfactory reagent performance. A cr edit will be issued for this component. Performed By: [facility] [address] [place] [address] Specimen Anatomical Collection Method / Collection Time Recei edil Time (Source) Location / Volume Laterality Blood STRUCTURE OF RIGHT Venipuncture / 01/31/2022 4:45 03/2 11/2021 4:45 UPPER LIMB / Unknown PM CDT PM CDT Unknown Obdulio Barrera MD LAB - BLOOD ORDERABLES Performing Organization Address City/State/ZIP Code Phon e Number [facility] [place], [place] [phone] [address] [facility] [address] documented in this encounter Visit Diagnoses Diagnosis Cough - Primary Wheezing Pulmonary air trapping Lipoma of skin and subcutaneous tissue Lipoma of other skin and subcutaneous ti ssue documented in this encounter Additional Health Concerns Assessment Noted Time PHQ-9 Depression Total Score: 15 2022 7:02 AM CD T documented as of this encounter Care Teams Admissions Officer Relationship Specialty Start Date End Date Aydee Burton, PCP - General Nurse Practitioner - 05/17/21 GRINDER OUTSIDE DIAMETER STRUCTURES ENGINEER Family [address] [place], [place] [phone] Aydee Burton, Assigned PCP 04/28/21 GRINDER OUTSIDE DIAMETER STRUCTURES ENGINEER [address] [place], [place] [phone] Louisa Hood, Assigned Neuroscience 07/11/21 GRINDER OUTSIDE DIAMETER STRUCTURES ENGINEER Provider [address] [place], [place] [address] Se Levy, Lead Lease Administration Analyst 08/05/21 05/12/22 Clari Francois Pharmacist Pharmacist 08/06/21 06/07/22 Jocelyn [facility] [address] [facility] [address] [place], [place] [address] [place], Assigned Sleep 08/01/21 Angel Turcios, Provider [address] [place], [place] [address] Lesly Celaya MD Assigned Surgical 09/05/21 [address] Provider [place], [place] [address] Tawana Patel MA [facility] 09/30/21 Worker Ramses Mcpherson Assigned OBGYN 11/07/21 MD Onesimo Provider [address] [place], [place] [phone] Obdulio Barrera MD Critical Care 01/24/[address] [place] [address] 276 [place], [place] [phone] Mago Swift [facility] Lead Lease Administration Analyst Hospital Plan Administrator - 08/05/21 Clinical documented as of this encounter
--- OUTSIDE RECORDS SUMMARY | 2022-09-21 04:10 | XMS_ITS | Encounter Summary ---
:1980 Author Organization [place] Address [address] [facility] [address] Care Team Providers Name Role Phone Aydee Nam APRN [facility] Primary Care Provider [phone] Aydee Nam APRN [facility] Unavailable [phone] Louisa Hood DIRECTOR DERMATOLOGY [facility] Unavailable [phone] Se Levy BUNG SEWER Unavailable Unavailable Clari Ruiz [facility] Unavailable [phone] Angel Hannah MD Unavailable Lesly Celaya MD Unavailable Tawana Patel MA Unavailable Unavailable Ramses Mcpherson MD Unavailable [phone] Obdulio Barrera MD Unavailable [phone] Mago Swift [employer] OPERATOR Unavailable Reason for Referral CV Testing (Priority: 1-2 Weeks) - Closed Specialty Diagnoses / Procedures Referred By Contact Refer red To Contact Diagnoses Chest pain, unspecified type Chest tightness SOB (shortness of breath) Pulmonary air trapping Wheezing Bronchospasm Nam, Aydee Vanessa, DIRECTOR DERMATOLOGY Procedures Echocardiogram Complete ZZ[facility] TTE W/DOPPLER, COMPLETE [facility] ECHO COMPLETE W DOPPLER W CONTRAST [facility] ECHO COMPLETE W DOPPLER W/O CONTRAST [facility] IV PUSH SINGLE, INITIAL SUBSTANCE ZZ[facility] US GUIDE FOR PERICARDIOCENTESIS [facility] ZZHC ECHO MYOCARD BX ZZC INJECTION, PERFLUTREN LIPID MICROSPHERES, PER ML [facility] STATISTIC IV PUSH SINGLE INITIAL SUBSTANCE AL ECHO MYOCARD BX AL INJECTION, PERFLUTREN LIPID MICROSPHERES, PER ML AL TTE W/DOPPLER, COMPLETE [address] AL IV PUSH SINGLE, INITIAL S UBSTANCE AL TTE W/DOPPLER, COMPLETE AL TTE W/DOPPLER, COMPLETE HC US GUIDE FOR PERICARDIOCENTESIS HC ECHO MYOCARD BX HC IV PUSH SINGLE, INITIAL SUBSTANCE HC STATISTIC IV PUSH SING[place] [address] HC ECHO COMPLETE W DOPPLER W CONTRAST HC ECHO COMPLETE W DOPPLER W/O CONTRAST Referral ID Status Reason Start Date Expiration Date Visits Requ ested Visits Authorized [id number] Closed 01/24/2022 01/24/2023 1 1 Reason for Visit CV Testing (Priority: 1-2 Weeks) - Closed Specialty Diagnoses / Procedures Referred By Contact Refer red To Contact Diagnoses Chest pain, unspecified type Chest tightness SOB (shortness of breath) Pulmonary air trapping Wheezing Bronchospasm Aydee Nam, DIRECTOR DERMATOLOGY Procedures Echocardiogram Complete [facility] TTE W/DOPPLER, COMPLETE ZZ[facility] ECHO COMPLETE W DOPPLER W CONTRAST [facility] ECHO COMPLETE W DOPPLER W/O CONTRAST ZZHC IV PUSH SINGLE, INITIAL SUBSTANCE ZZHC US GUIDE FOR PERICARDIOCENTESIS [facility] ZZHC ECHO MYOCARD BX ZZC INJECTION, PERFLUTREN LIPID MICROSPHERES, PER ML [facility] STATISTIC IV PUSH SINGLE INITIAL SUBSTANCE AL ECHO MYOCARD BX AL INJECTION, PERFLUTREN LIPID MICROSPHERES, PER ML AL TTE W/DOPPLER, COMPLETE [address] AL IV PUSH SINGLE, INITIAL S UBSTANCE AL TTE W/DOPPLER, COMPLETE AL TTE W/DOPPLER, COMPLETE HC US GUIDE FOR PERICARDIOCENTESIS HC ECHO MYOCARD BX HC IV PUSH SINGLE, INITIAL SUBSTANCE HC STATISTIC IV PUSH SING[place] [address] HC ECHO COMPLETE W DOPPLER W CONTRAST HC ECHO COMPLETE W DOPPLER W/O CONTRAST Referral ID Status Reason Start Date Expiration Date Visits Requ ested Visits Authorized [id number] Closed 01/24/2022 01/24/2023 1 1 Encounter Details Date Type Department Care Team Description 01/31/2022 Hospital Encounter [facility] Aydee Nam Ches pain, unspecified type; [facility] Vanessa, DIRECTOR DERMATOLOGY Chest tig htness; [facility] SOB (shortness of breath); [address] [facility] [address] Pulmona ry air trapping; Blvd [address] Wheezing; [place], [place] [id number] [phone] Social History Tobacco Use Types Packs/Day Years [...] How often do you attend gnosticism or congregational services? Never 08/05/2021 Do you [...] at Date Recorded Female 11/09/2021 7:53 PM LION TRAINER COVID-19 Exposure Response Date Recorded In the last month, have you been in contact with No / Unsure 01/31/2022 7:56 AM CDT someone who was confirmed or suspected to have Coronavirus / COVID-19? documented as of this encounter Medications at Time of Discharge Medication Sig Dispensed Refills Start Date End Date acetaminophen (TYLENOL) Take 500-1,000 mg by 0 500 MG tablet mouth every 6 hours as needed for mild pain albuterol (PROVENTIL) Take 1 vial (2.5 mg) [...] wheezing Chest tightness, SOB (shortness of breath) QUEtiapine (SEROQUEL) Take 100 mg by mouth 30 tablet 2 02/2022 100 MG tablet as needed QUEtiapine (SEROQUEL) Take 200 mg by mouth 0 200 MG tablet At Bedtime vitamin D3 Take 1 tablet by 0 (CHOLECALCIFEROL) 50 mouth daily mcg (2000 units) tablet levofloxacin (LEVAQUIN) Take 3 tablets (750 30 tablet 0 02/10/2022 250 MG mg) by mouth daily tabletIndications: for 10 days Cough albuterol (PROAIR Inhale 2 puffs into 18 g 0 2 02/09/2022 HFA/PROVENTIL the lungs every 4 HFA/VENTOLIN HFA) 108 hours as needed for (90 Base) MCG/ACT shortness of breath / inhalerIndications: dyspnea or wheezing Reduced chest expansion on inspiration, Wheezing ascorbic acid (VITAMIN Take 750 mg by mouth 0 06/16/2022 C) 250 MG CHEW chewable daily tablet azithromycin Two tablets first 6 tablet 0 01/24/202202/04 (ZITHROMAX) 250 MG day, then one tablet tabletIndications: daily for four days Chest pain, unspecified type, Chest tightness, SOB (shortness of breath), Pulmonary air trapping, Wheezing, Bronchospasm, Acute bronchitis with symptoms > 10 days benzonatate (TESSALON) Take 1 capsule (100 15 capsule 0 01/1103/01/2022 100 MG capsule mg) by mouth 3 times daily as needed for cough gabapentin (NEURONTIN) 4 times daily 0 12/14/2021 04/29/2022 400 MG capsule ipratropium - albuterol Take 1 vial (3 mLs) 90 mL 3 09/202202/03/2022 0.5 mg/2.5 mg/3 mL by nebulization every (DUONEB) 0.5-2.5 (3) 6 hours as needed for MG/3ML neb shortness of breath / solutionIndications: dyspnea or wheezing Chest tightness, SOB (shortness of breath) lamoTRIgine (LAMICTAL) Take 1 tablet (100 0 01/1402/12/2022 100 MG tablet mg) by mouth daily And a 200mg Total dose in 300mg daily lamoTRIgine (LAMICTAL) Take 1 tablet (200 0 01/1402/12/2022 200 MG tablet mg) by mouth daily With a 100 mg to total 300mg daily methocarbamol (ROBAXIN) Take 1-1.5 tablets 90 tablet 1 12/202105/14/2022 500 MG (500-750 mg) by mouth tabletIndications: 3 times daily as Chronic myofascial needed for muscle pain, Trigger point of spasms shoulder region, unspecified laterality omeprazole (PRILOSEC) Take 1 capsule (20 28 capsule 0 202102/12/[address] mg) by mouth 2 times capsuleIndications: daily for 14 days Chest pain, unspecified type, Chest tightness ondansetron Take 1 tablet (4 mg) 12 tablet 0 01/14/202211/2021 (ZOFRAN-ODT) 4 MG ODT by mouth every 8 tabIndications: S/P hours as needed for laparoscopic nausea hysterectomy documented as of this encounter Miscellaneous Notes Result Encounter Note - Lory Nunez PA-C - 01/31/2022 5:52 PM CDT Marta Here are your recent results. Great news! Your echocardiogram shows normal cardiac function. If you have any questions please do not hesitate to contact our office via phone ([phone]) or MyChart. Lory Nunez, MS, PHILIPPE (covering for Aydee Nam CNP) [facility] documented in this encounter Plan of Treatment Upcoming Encounters Date Type Specialty Care Team Description 09/26/2022 Appointment Speech Therapy Obdulio Barrera MD [address] [facility] [address] [place] [address] Anabel Chew, MEDICAL ASSISTING PROGRAM DIRECTOR [facility] [address] [facility] [address] [place], [place] [address] 09/27/2022 Therapy Visit Physical Therapy Luisana Watkins, PT [address] [place] [address] 09/29/2022 Virtual Visit Pain & Palliative Marilia Deluna, Care PhD [address] [place] [address] 09/30/2022 Office Visit Family Practice Aydee Nam, DIRECTOR DERMATOLOGY [facility] [address] [place] [address] 10/03/2022 Therapy Visit Physical Therapy Una Reardon, PT [address] [place] [phone] 10/10/2022 Hospital Encounter Surgery Lesly Celaya MD [address] [place], [place] [phone] 10/10/2022 Office Visit Surgery Lesly Celaya MD [address] [place] [address] Ninoska Flowers, PA-C [address] [place] [address] 10/10/2022 Surgery Surgery Lesly Celaya, EXCISION, MASSES - MD back, abdomen, [address] [place] [address] 10/11/2022 Virtual Visit Clari Su, [facility] [id number] [place], [place] [address] 10/14/2022 Appointment Speech Therapy Anabel Chew, MEDICAL ASSISTING PROGRAM DIRECTOR [facility] [address] [facility] [address] [place], [place] [address] 10/21/2022 Office Visit Pulmonology Obdulio Barrera MD [address] [facility] [address] [place], [place] [address] 10/25/2022 PRE VISIT ENT Charo Burton MD Previsit [address] [place] [address] 10/25/2022 Office Visit ENT Charo Burton MD [address] [place], [place] [address] 10/25/2022 Office Visit ENT Provider, Jeannette 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 Tobacco Sweeper 10/28/2022 Appointment Speech Therapy Anabel Chew, MEDICAL ASSISTING PROGRAM DIRECTOR [address] [id number] 11/17/2022 Appointment Speech Therapy Anabel Chew, MEDICAL ASSISTING PROGRAM DIRECTOR [address] [address] 12/23/2022 Office Visit Neurology Colby Yeung MD [address] [place] [address] Scheduled Procedures Name Priority Associated Diagnoses Date/Time EXCISION, MASS, TORSO Lipoma of skin and subcuta neous 10/10/2022 7:30 AM LION TRAINER tissue documented as of this encounter Procedures Procedure Name Priority Date/Time Associated Diagnosis Comme nts ECHO COMPLETE SEAN 01/31/2022 4:18 PM Chest pain, Results for this CDT unspecified type procedure are in Chest tightness the results SOB (shortness of section. breath) Pulmonary air tr apping Wheezing Bronchospasm documented in this encounter Results ECHO COMPLETE (01/31/2022 4:18 PM CDT) P athologist Signature LVEF 60-65% CARDIOLOGY RESULTS Anatomical Region Laterality Modality Echocardiography Specimen (Source) Anatomical Collection Method Collection Time Re ceived Time Location / / Volume Laterality 01/31/2022 3:57 PM CDT Narrative 01/31/2022 4:37 PM CDT [id number]^CYRIL^AYDEE^[facility] [address] [place] [address] Name: MARTA HAWKINS : 1980 Study Date: 01/31/2022 03:57 PM Age: 42 yrs Gender: Female Patient Location: [facility] Reason For Study: Chest pain, unspecifie d type, Chest tightness, SOB (shortness of Ordering Physician: AYDEE NAM Referring Physician: AYDEE NAM TE Performed By: Margarito Blair RDCS BSA: 2.1 m2 Height: 67 in Weight: 210 lb HR: 105 BP: 110/75 mmHg Procedure Complete Echo Adult. Note artefact from breast implants in certain views. Interpretation Summary 1. Normal left ventricular size and syst olic function. LVEF 60-65%. 2. No regional wall motion abnormalities . 3. Normal right ventricular size and sys tolic function. 4. No significant valve disease. Left Ventricle The left ventricle is normal in size. Th ere is normal left ventricular wall thickness. Left ventricular systolic fun ction is normal. The visual ejection fraction is 60-65%. Left ventricular juan stolic function is normal. No regional wall motion abnormalities noted. Right Ventricle The right ventricle is normal in size an d function. Atria Normal left atrial size. Right atrial si ze is normal. There is no color Doppler evidence of an atrial shunt. Mitral Valve The mitral valve leaflets appear normal. There is no evidence of stenosis, fluttering, or prolapse. There is trace mitral regurgitation. Tricuspid Valve Normal tricuspid valve. There is trace t ricuspid regurgitation. Right ventricular systolic pressure could not be approximated due to inadequate tricuspid regurgitation. Aortic Valve The aortic valve is trileaflet. No aorti c regurgitation is present. No aortic stenosis is present. Pulmonic Valve The pulmonic valve is not well seen, but is grossly normal. This degree of valvular regurgitation is within normal limits. Vessels The aortic root is normal size. Normal s ize ascending aorta. The inferior vena cava is normal. Pericardium There is no pericardial effusion. Rhythm Sinus rhythm was noted. MMode/2D Measurements & Calculations IVSd: 1.1 cm LVIDd: 4.3 cm LVIDs: 2.7 cm LVPWd: 0.95 cm FS: 37.7 % LV mass(C)d: 143.5 grams LV mass(C)dI: 69.5 grams/m2 Ao root diam: 3.2 cm LA dimension: 4.1 cm asc Aorta Diam: 2.8 cm LA/Ao: 1.3 LVOT diam: 2.1 cm LVOT area: 3.5 cm2 LA Volume (BP): 43.6 ml LA Volume Index (BP): 21.2 ml/m2 RWT: 0.44 Doppler Measurements & Calculations LV V1 max P.6 mmHg LV V1 max: 118.0 cm/sec LV V1 VTI: 22.0 cm SV(LVOT): 76.2 ml SI(LVOT): 36.9 ml/m2 PI end-d idania: 155.0 cm/sec Report approved by: Dr Babatunde Davis 0 01/31/2022 04:37 PM Procedure Note Babatunde Noriega MD - 01/31/2022For matting of this note might be different from the original. [id number]^CYRIL^AYDEE^[facility] [address] [place] [address] Name: MARTA HAWKINS : 1980 Study Date: 01/31/2022 03:57 PM Age: 42 yrs Gender: Female Patient Location: [facility] Reason For Study: Chest pain, unspecifie d type, Chest tightness, SOB (shortness of Ordering Physician: AYDEE NAM Referring Physician: AYDEE NAM TE Performed By: Margarito Blair RDCS BSA: 2.1 m2 Height: 67 in Weight: 210 lb HR: 105 BP: 110/75 mmHg Procedure Complete Echo Adult. Note artefact from breast implants in certain views. Interpretation Summary 1. Normal left ventricular size and syst olic function. LVEF 60-65%. 2. No regional wall motion abnormalities . 3. Normal right ventricular size and sys tolic function. 4. No significant valve disease. Left Ventricle The left ventricle is normal in size. Th ere is normal left ventricular wall thickness. Left ventricular systolic fun ction is normal. The visual ejection fraction is 60-65%. Left ventricular juan stolic function is normal. No regional wall motion abnormalities noted. Right Ventricle The right ventricle is normal in size an d function. Atria Normal left atrial size. Right atrial si ze is normal. There is no color Doppler evidence of an atrial shunt. Mitral Valve The mitral valve leaflets appear normal. There is no evidence of stenosis, fluttering, or prolapse. There is trace mitral regurgitation. Tricuspid Valve Normal tricuspid valve. There is trace t ricuspid regurgitation. Right ventricular systolic pressure could not be approximated due to inadequate tricuspid regurgitation. Aortic Valve The aortic valve is trileaflet. No aorti c regurgitation is present. No aortic stenosis is present. Pulmonic Valve The pulmonic valve is not well seen, but is grossly normal. This degree of valvular regurgitation is within normal limits. Vessels The aortic root is normal size. Normal s ize ascending aorta. The inferior vena cava is normal. Pericardium There is no pericardial effusion. Rhythm Sinus rhythm was noted. MMode/2D Measurements & Calculations IVSd: 1.1 cm LVIDd: 4.3 cm LVIDs: 2.7 cm LVPWd: 0.95 cm FS: 37.7 % LV mass(C)d: 143.5 grams LV mass(C)dI: 69.5 grams/m2 Ao root diam: 3.2 cm LA dimension: 4.1 cm asc Aorta Diam: 2.8 cm LA/Ao: 1.3 LVOT diam: 2.1 cm LVOT area: 3.5 cm2 LA Volume (BP): 43.6 ml LA Volume Index (BP): 21.2 ml/m2 RWT: 0.44 Doppler Measurements & Calculations LV V1 max P.6 mmHg LV V1 max: 118.0 cm/sec LV V1 VTI: 22.0 cm SV(LVOT): 76.2 ml SI(LVOT): 36.9 ml/m2 PI end-d idania: 155.0 cm/sec Report approved by: Dr Babatunde Davis 0 01/31/2022 04:37 PM Aydee Nam DIRECTOR DERMATOLOGY [facility] CV ECHO ORDERABLES documented in this encounter Visit Diagnoses Diagnosis Chest pain, unspecified type Chest tightness Other chest pain SOB (shortness of breath) Shortness of breath Pulmonary air trapping Wheezing Bronchospasm Acute bronchospasm Lipoma of skin and subcutaneous tissue Lipoma of other skin and subcutaneous ti ssue documented in this encounter Additional Health Concerns Assessment Noted Time PHQ-9 Depression Total Score: 15 2022 7:02 AM CD T documented as of this encounter Care Teams Package Sealer Machine Relationship Specialty Start Date End Date Aydee Nam, PCP - General Nurse Practitioner - 05/17/21 DIRECTOR DERMATOLOGY [facility] Family [address] [place], [place] [address] Aydee Nam, Assigned PCP 04/28/21 DIRECTOR DERMATOLOGY [facility] [address] [place], [place] [address] Louisa Hood, Assigned Neuroscience 07/11/21 DIRECTOR DERMATOLOGY [facility] Provider [address] [place] [phone] Se Levy, Lead Production Assembler 08/05/21 05/12/22 Clari Francois Pharmacist Pharmacist 08/06/21 06/07/22 Jocelyn RPH [address] [place] [address], [place] [address] [place], Assigned Sleep 08/01/21 Angel Turcios, Provider [address] [place], [place] [phone] Lesly Celaya MD Assigned Surgical 09/05/21 [address] [place] [address] Tawana Patel MA [facility] 09/30/21 Worker Ramses Mcpherson Assigned OBGYN 11/07/21 MD Onesimo Provider [address] [place], [place] [phone] Obdulio Barrera MD Critical Care 01/24/[address] [place] [address] [address] [place] [address] Mago Swift, [facility] Lead Production Assembler Marketing Associate - 08/05/21 Clinical documented as of this encounter
--- OUTSIDE RECORDS SUMMARY | 2022-09-21 04:10 | XMS_ITS | Encounter Summary ---
:1980 Author Organization [facility] Address [address] [place] [address] Care Team Providers Name Role Phone Aydee Burton THERMAL MOLDER GRAVITY PROSPECTING OBSERVER Primary Care Provider [phone] Aydee Burton APRN GRAVITY PROSPECTING OBSERVER Unavailable [phone] Louisa Hood THERMAL MOLDER GRAVITY PROSPECTING OBSERVER Unavailable [phone] Se Levy GLOBAL IMPLEMENTATION MANAGER Unavailable Unavailable Clari Ruiz [facility] Unavailable [phone] Angel Hannah MD Unavailable Lesly Celaya MD Unavailable Tawana Patel MA Unavailable Unavailable Ramses Mcpherson MD Unavailable [phone] Obdulio Barrera MD Unavailable [phone] Mago Swift MACHINE OVERHAULER Unavailable Reason for Visit Reason Comments Surgical Followup 2nd post Hysterectomy visit - surgery 12/27/21 Encounter Details Date Type Department Care Team Description [facility] [place] (Primary Dx) [place] [address] [place], [place] [address] [address] [place] [address] Social History Tobacco Use Types Packs/Day Years [...] How often do you attend anabaptist or voodoo services? Never 08/05/2021 Do you belong to [...] at Date Recorded Female 11/09/2021 7:53 PM CAR TOP BOLTER COVID-19 Exposure Response Date Recorded In the last month, have you been in contact with No / Unsure 2022 4:00 PM CDT someone who was confirmed or suspected to have Coronavirus / COVID-19? documented as of this encounter Last Filed Vital Signs Vital Sign Reading Time Taken Comments Blood Pressure 104/70 2022 4:06 PM CDT Pulse - - Temperature - - Respiratory Rate - - Oxygen Saturation - - Inhaled Oxygen Concentration - - Weight 93.7 kg (206 lb 9.6 oz) 2022 4:06 PM CDT Height - - Body Mass Index 32.36 01/24/2022 10:44 AM CDT documented in this encounter Progress Notes Ramses Mcpherson MD - 2022 4:00 PM CDT Post Op Follow Up Marta Hill is here for post op follow up visit following TLH/BS on 12/28/21. Procedure was uncomplicated. Final pathology demonstrated Final Diagnosis Uterus, right fallopian tube, left fallopian tube, total hysterectomy with bilateral salpingectomy: -Secretory pattern endometrium without hyperplasia. -Adenomyosis. -Multiple intramural uterine leiomyomas (largest 1.2 cm). -Negative for cervical squamous intraepithelial lesion or glandular dysplasia. -Unremarkable bilateral fallopian tubes (status post tubal ligation). -Benign paratubal cysts, bilateral. -Negative for malignancy. Since surgery patient has had a persistent cough for which she has been evaluated twice in the ED, most recently on 01/21. Pulmonology follow is scheduled for 02/04 Activity, bowel function and bladder function have all returned to normal. EXAM: Abdomen: Abdomen soft, non-tender. BS normal. No masses, organomegaly. Laparoscopy scars CDI : Normal external genitalia without lesions. Vaginal cuff well supported and intact. Sutures remain intact Follow up as needed. Jonah Mcpherson MD documented in this encounter Plan of Treatment Upcoming Encounters Date Type Specialty Care Team Description 09/26/2022 Appointment Speech Therapy Obdulio Barrera MD [address] [facility] [address] [place], [place] [phone] Anabel Chew, [place] 094[address] [facility] [address] [place], [place] [address] 09/27/2022 Therapy Visit Physical Therapy Luisana Watkins, PT [address] [place] [address] 09/29/2022 Virtual Visit Pain & Palliative Marilia Deluna, [facility] PhD [address] [place], [place] [address] 09/30/2022 Office Visit Family Practice Aydee Burton, THERMAL MOLDER GRAVITY PROSPECTING OBSERVER [address] [place], [place] [address] 10/03/2022 Therapy Visit Physical Therapy Una Reardon, PT [address] [place] [address] 10/10/2022 Hospital Encounter Surgery Lesly Celaya MD [address] [place] [address] 10/10/2022 Office Visit Surgery Lesly Celaya MD [address] [place] [address] Ninoska Flowers, PA-C [address] [place] [address] 10/10/2022 Surgery Surgery Lesly Celaya, EXCISION, MASSES - MD back, abdomen, [address] right lower [facility] [address] 10/11/2022 Virtual Visit Clari Su, [facility] [address] [id number] [place], [place] [address] 10/14/2022 Appointment Speech Therapy Anabel Chew, HVAC PROJECT ENGINEER [facility] [address] [facility] [address] [place] [address] 10/21/2022 Office Visit Pulmonology Obdulio Barrera MD [address] [facility] [address] [place] [address] 10/25/2022 PRE VISIT ENT Chaor Burton MD Previsit [address] [place] [id number] 10/25/2022 Office Visit ENT Charo Burton MD [address] [place] [address] 10/25/2022 Office Visit ENT Provider, 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 Commercial Technician 10/28/2022 Appointment Speech Therapy Anabel Chew, HVAC PROJECT ENGINEER [address] [address] 11/17/2022 Appointment Speech Therapy Anabel Chew HVAC PROJECT ENGINEER [address] [address] 12/23/2022 Office Visit Neurology Colby Yeung MD [address] [place] [address] Scheduled Procedures Name Priority Associated Diagnoses Date/Time EXCISION, MASS, TORSO Lipoma of skin and subcuta neous 10/10/2022 7:30 AM CAR TOP BOLTER tissue documented as of this encounter Visit Diagnoses Diagnosis Postop check - Primary Follow-up examination, following unspeci fied surgery Lipoma of skin and subcutaneous tissue Lipoma of other skin and subcutaneous ti ssue documented in this encounter Additional Health Concerns Assessment Noted Time PHQ-9 Depression Total Score: 15 2022 7:02 AM CD T documented as of this encounter Care Teams Relations Manager Relationship Specialty Start Date End Date Aydee Burton, PCP - General Nurse Practitioner - 05/17/21 THERMAL MOLDER GRAVITY PROSPECTING OBSERVER Family [address] [place] [id number] Aydee Burton, Assigned PCP 6/16/21 THERMAL MOLDER GRAVITY PROSPECTING OBSERVER [address] [place], [place] [address] Louisa Hood, Assigned Neuroscience 07/11/21 THERMAL MOLDER GRAVITY PROSPECTING OBSERVER Provider [address] [place], [place] [address] Se Levy, Lead Wire Tester 08/05/21 05/12/22 GLOBAL IMPLEMENTATION MANAGER Clari Ruiz Pharmacist Pharmacist 08/06/21 06/07/22 Jocelyn, [facility] [address] [place], [place] [phone] [place], Assigned Sleep 08/01/21 Angel Turcios, Provider [address] [place], [place] [address] Lesly Celaya MD Assigned Surgical 09/05/21 [address] [place] [address] Tawana Patel MA [facility] 09/30/21 Worker Ramses Mcpherson Assigned OBGYN 11/07/21 MD Onesimo Provider [address] [place], [place] [phone] Obdulio Barrera MD Critical Care 01/24/22 [address] [facility] [address] [place], [place] [address] Mago Swift, [facility] Lead Wire Tester System Administration Manager - 08/05/21 Clinical documented as of this encounter
--- OUTSIDE RECORDS SUMMARY | 2022-09-21 04:10 | XMS_ITS | Encounter Summary ---
:1980 Author Organization [facility] Address [address] [place] [address] Care Team Providers Name Role Phone Aydee Burton TORCH SOLDERER BUDGET COORDINATOR Primary Care Provider Aydee Burton APRN BUDGET COORDINATOR Unavailable [phone] Louisa Hood TORCH SOLDERER BUDGET COORDINATOR Unavailable [phone] Se Levy SENIOR TECH MANUFACTURING ENGINEERING Unavailable Unavailable Clari Ruiz [facility] Unavailable [phone] Angel Hannah MD Unavailable Lesly Celaya MD Unavailable Tawana Patel MA Unavailable Unavailable Ramses Mcpherson MD Unavailable [phone] Obdulio Barrera MD Unavailable [phone] Mago Swift J2EE CONSULTANT Unavailable Encounter Details Date Type Department Care Team Description 01/31/2022 Travel Social History Tobacco Use Types Packs/Day [...] How often do you attend methodist or buddhism services? Never 08/05/2021 Do you [...] at Date Recorded Female 11/09/2021 7:53 PM MOUSE BREEDER COVID-19 Exposure Response Date Recorded In the [...] [facility] [address] [place], [place] [address] Anabel Chew, WEIGHT CHECKER [address] [place], [place] [address] 09/27/2022 Therapy Visit Physical Therapy Luisana Watkins, PT [address] [place] [address] 09/29/2022 Virtual Visit Pain & Palliative Marilia Deluna, [facility] PhD [address] [place], [place] [address] 09/30/2022 Office Visit Family Practice Aydee Burton, TORCH SOLDERER BUDGET COORDINATOR [address] [place], [place] [address] 10/03/2022 Therapy Visit Physical Therapy Una Reardon, PT [address] [place] [phone] 10/10/2022 Hospital Encounter Surgery Lesly Celaya MD [address] [place] [address] 10/10/2022 Office Visit Surgery Lesly Celaya MD [address] [place] [address] Ninoska Flowers, PA-C [address] [place] [address] 10/10/2022 Surgery Surgery Lesly Celaya, EXCISION, MASSES - MD back, abdomen, [address] right lower [facility] [place] [address] 10/11/2022 Virtual Visit Clari Su, [facility] [address] [phone] [place] [address] 10/14/2022 Appointment Speech Therapy Anabel Chew, WEIGHT CHECKER [facility] 516 [facility] [address] [place] [address] 10/21/2022 Office Visit Pulmonology Obdulio Barrera MD [address] [address] 10/25/2022 PRE VISIT ENT Charo Burton MD Previsit [address] [place] [address] 10/25/2022 Office Visit ENT Charo Burton MD [address] [place] [place] [address] 10/25/2022 Office Visit ENT Provider, Jeannette 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 Cow Tester 10/28/2022 Appointment Speech Therapy Anabel Chew, WEIGHT CHECKER [address] [address] 11/17/2022 Appointment Speech Therapy Anabel Chew, WEIGHT CHECKER [address] [address] 12/23/2022 Office Visit Neurology Colby Yeung MD [address] [address] Scheduled Procedures Name Priority Associated Diagnoses Date/Time EXCISION, MASS, TORSO Lipoma of skin and subcuta neous 10/10/2022 7:30 AM MOUSE BREEDER tissue documented as of this encounter Visit Diagnoses Not on filedocumented in this encounter Additional Health Concerns Assessment Noted Time PHQ-9 Depression Total Score: 15 2022 7:02 AM CD T documented as of this encounter Care Teams Injection Molding Machine Offbearer Relationship Specialty Start Date End Date Aydee Burton, PCP - General Nurse Practitioner - 05/17/21 TORCH SOLDERER BUDGET COORDINATOR Family [address] [place] [phone] Aydee Burton, Assigned PCP 04/28/21 TORCH SOLDERER [address] [phone] Louisa Hood, Assigned Neuroscience 07/11/21 TORCH SOLDERER BUDGET COORDINATOR Provider [address] [place], [place] [address] Se Levy, Lead Branding Specialist 08/05/21 05/12/22 SENIOR TECH MANUFACTURING ENGINEERING Clari Ruiz Pharmacist Pharmacist 08/06/21 06/07/22 Jocelyn, [facility] [address] [place], [place] [address] [place], Assigned Sleep 08/01/21 Angel Turcios, Provider [address] [place], [place] [address] Lesly Celaya MD Assigned Surgical 09/05/21 [address] Provider [place], [place] [address] Tawana Patel MA [facility] 09/30/21 Worker Ramses Mcpherson Assigned OBGYN 11/07/21 MD Onesimo Provider [address] [place], [place] [address] Obdulio Barrera MD Critical Care 01/24/22 420 [facility] [address] [place], [place] [address] Mago Swift, J2EE CONSULTANT Lead Branding Specialist Hood Fitter - 08/05/21 Clinical documented as of this encounter
--- OUTSIDE RECORDS SUMMARY | 2022-09-21 04:11 | XMS_ITS | Encounter Summary ---
:1980 Author Organization [place] Address [address] [place] [address] Care Team Providers Name Role Phone Aydee Nam APRN ACCOUNTING MACHINE OPERATOR Primary Care Provider [phone] Aydee Nam APRN ACCOUNTING MACHINE OPERATOR Unavailable [phone] Louisa Hood ORGANIZATIONAL EFFECTIVENESS DIRECTOR ACCOUNTING MACHINE OPERATOR Unavailable [phone] Se Levy BANQUET WAITER/WAITRESS Unavailable Unavailable Clari Ruiz [facility] Unavailable [phone] Angel Hannah MD Unavailable Lesly Celaya MD Unavailable Tawana Patel MA Unavailable Unavailable Ramses Mcpherson MD Unavailable [phone] Obdulio Barrera MD Unavailable [phone] Mago Swift DIRECTOR OF EMPLOYER SERVICES Unavailable Reason for Referral CV Testing (Priority: 1-2 Weeks) - Closed Specialty Diagnoses / Procedures Referred By Contact Refer red To Contact Diagnoses Chest pain, unspecified type Chest tightness SOB (shortness of breath) Pulmonary air trapping Wheezing Bronchospasm Nam, Aydee Vanessa, ORGANIZATIONAL EFFECTIVENESS DIRECTOR Procedures Echocardiogram Complete ZZHC TTE W/DOPPLER, COMPLETE ZZHC ECHO COMPLETE W DOPPLER W CONTRAST ZZHC ECHO COMPLETE W DOPPLER W/O CONTRAST ZZHC IV PUSH SINGLE, INITIAL SUBSTANCE ZZHC US GUIDE FOR PERICARDIOCENTESIS ACCOUNTING MACHINE OPERATOR ZZHC ECHO MYOCARD BX ZZC INJECTION, PERFLUTREN LIPID MICROSPHERES, PER ML ZZHC STATISTIC IV PUSH SINGLE INITIAL SUBSTANCE AK ECHO MYOCARD BX AK INJECTION, PERFLUTREN LIPID MICROSPHERES, PER ML AK TTE W/DOPPLER, COMPLETE [address] AK IV PUSH SINGLE, INITIAL S UBSTANCE AK TTE W/DOPPLER, COMPLETE AK TTE W/DOPPLER, COMPLETE HC US GUIDE FOR PERICARDIOCENTESIS HC ECHO MYOCARD BX HC IV PUSH SINGLE, INITIAL SUBSTANCE HC STATISTIC IV [place]USH [place] [address] HC ECHO COMPLETE W DOPPLER W CONTRAST HC ECHO COMPLETE W DOPPLER W/O CONTRAST Referral ID Status Reason Start Date Expiration Date Visits Requ ested Visits Authorized [id number] Closed 01/24/2022 01/24/2023 1 1 Reason for Visit Reason Comments Shortness of Breath Encounter Details Date Type Department Care Team Description 01/24/2022 Office Visit [facility] Aydee Nam Chest pain , unspecified type (Primary Dx); Clinic ChanaNiall Mendez APRN CNP Chest tightness; [address] [facility] SOB (s hortness of breath); [address] Pulmonary air trapping; [place] [address] Wheezing; [address] Bronchospasm; [phone] Medicatio n management; Acute bronchiti s with symptoms > 10 days; Dizziness Social History Tobacco Use Types Packs/Day Years [...] How often do you attend cheondoism or adventist services? Never 08/05/2021 Do you [...] at Date Recorded Female 11/09/2021 7:53 PM INFORMATION TECHNOLOGY OFFICER COVID-19 Exposure Response Date Recorded In the last month, have you been in contact with No / Unsure 01/31/2022 7:56 AM CDT someone who was confirmed or suspected to have Coronavirus / COVID-19? documented as of this encounter Last Filed Vital Signs Vital Sign Reading Time Taken Comments Blood Pressure 126/70 01/24/2022 10:44 AM CDT Pulse 130 01/24/2022 10:44 AM CDT Temperature 37.1 ??C (98.7 ??F) 01/24/2022 10:44 AM CDT Respiratory Rate - - Oxygen Saturation 96% 01/24/2022 10:44 AM CDT Inhaled Oxygen Concentration - - Weight 93 kg (205 lb) 01/24/2022 10:44 AM CDT Height 170.2 cm (5' 7) 01/24/2022 10:44 AM CDT Body Mass Index 32.11 01/24/2022 10:44 AM CDT documented in this encounter Patient Instructions Patient InstructionsAydee Nam APRN ACCOUNTING MACHINE OPERATOR - 01/24/2022 10:50 AM CDT Images from the original note were not included. Patient Education Bronchospasm (Adult) Bronchospasm occurs when the airways (bronchial tubes) go into spasm and contract. This makes it hard to breathe and causes wheezing (a high-pitched whistling sound). Bronchospasm can also cause frequent coughing without wheezing. Bronchospasm is due to irritation, inflammation, or allergic reaction of the airways. People with asthma get bronchospasm. However, not everyone with bronchospasm has asthma. Being exposed to harmful fumes, a recent case of bronchitis, exercise, or a flare-up of chronic obstructive pulmonary disease (COPD) may cause the airways to spasm. An episode of bronchospasm may last 7 to 14 days. Medicine may be prescribed to relax the airways and prevent wheezing. Antibiotics will be prescribed only if your healthcare provider thinks there is a bacterial infection. Antibiotics do not help a viral infection. Home care ?? Drink lots of water or other fluids (at least 10 glasses a day) during an attack. This will loosen lung secretions and make it easier to breathe. If you have heart or kidney disease, check with yourdoctor before you drink extra fluids. ?? Take prescribed medicine exactly at the times advised. If you take an inhaled medicine to help with breathing, don't use it more than once every 4 hours, unless told to do so. If prescribed an antibiotic or prednisone, take all of the medicine, even if you are feeling better after a few days. ?? Don't smoke. Also avoid being exposed to secondhand smoke. ?? If you were given an inhaler, use it exactly as directed. If you need to use it more often than prescribed, your condition may be getting worse. Contact your healthcare provider. Follow-up care Follow up with your healthcare provider, or as advised. If you are age 65 or older, have a chronic lung disease or condition that affects your immune system, or you smoke, ask your healthcare provider about??getting a pneumococcal vaccine, as well as??a yearly flu shot (influenza vaccine). When to seek medical advice Call your healthcare provider right away if any of these occur: ?? You need to use your inhalers more often than usual ?? Fever of??100.4??F (38??C) or higher, or as directed by your healthcare provider ?? Cough that brings up lots of dark-colored sputum (mucus) ?? You don't get better within 24 hours Call 911 Call 911 if any of these occur: ?? Coughing up bloody sputum (mucus) ?? Chest pain with each breath ?? Increased wheezing or shortness of breath Jhonathan last reviewed this educational content on 04/13/2018 ?? [id number] [employer], [employer]. All rights reserved. This information is not intended as a substitute for professional medical care. Always follow your healthcare professional's instructions. Patient Education Uncertain Causes of Chest Pain Chest pain can happen for a number of reasons. Sometimes the cause can't be determined. If your??condition does not seem serious, and your pain does not appear to be coming from your heart, your healthcare provider may recommend watching it closely. Sometimes the signs of a serious problem take more time to appear. Many problems not related to your heart can cause chest pain. These include: ?? Musculoskeletal. Costochondritis is an inflammation of the tissues around the ribs that can occurfrom trauma or overuse injuries, or a strain of the muscles of the chest wall ?? Respiratory. Pneumonia, collapsed lung (pneumothorax), or inflammation of the lining of the chestand lungs (pleurisy) ?? Gastrointestinal. Esophageal reflux, heartburn, ulcers, or gallbladder disease ?? Anxiety and panic disorders ?? Nerve compression and inflammation ?? Rare miscellaneous problems such as aortic aneurysm (a swelling of the large artery coming out ofthe heart) or pulmonary embolism (a blood clot in the lungs) Home care After your visit, follow these recommendations: ?? Rest today and avoid strenuous activity. ?? Take any prescribed medicine as directed. ?? Be aware of any recurrent chest pain and notice any changes Follow-up care Follow up with your healthcare provider if you do not start to feel better within 24 hours, or as advised. Call 911 Call 911 if any of these occur: ?? A change in the type of pain: if it feels different, becomes more severe, lasts longer, or beginsto spread into your shoulder, arm, neck, jaw or back ?? Shortness of breath or increased pain with breathing ?? Weakness, dizziness, or fainting ?? Rapid heart beat ?? Crushing sensation in your chest When to seek medical advice Call your healthcare provider right away if any of the following occur: ?? Cough with dark colored sputum (phlegm) or blood ?? Fever of 100.4??F??(38??C) or higher, or as directed by your healthcare provider ?? Swelling, pain or redness in one leg [employer] last reviewed this educational content on 03/13/2018 ?? [id number] [employer], [employer]. All rights reserved. This information is not intended as a substitute for professional medical care. Always follow your healthcare professional's instructions. documented in this encounter Progress Notes Aydee Nam APRN CNP - 01/24/2022 10:50 AM CDT Images from the original note were not included. Assessment & Plan Chest pain, unspecified type Chest tightness SOB (shortness of breath) Pulmonary air trapping Wheezing Bronchospasm Acute bronchitis with symptoms > 10 days Dizziness Echo. Zio monitor on. Azithromycin. Prilosec. Dup neb every 4-6 hours. Labs. Pulm appt moved up; will reach out to see what else they recommend. Red flag symptoms discussed and if these occur present to the emergency room or call 911. Marta verbalizes understanding of plan of care and is in agreement. - Echocardiogram Complete - omeprazole (PRILOSEC) [address] capsule Dispense: 28 capsule; Refill: 0 - azithromycin (ZITHROMAX) 250 MG tablet Dispense: 6 tablet; Refill: 0 - CBC with platelets and differential - TSH with free T4 reflex - EKG 12-lead complete w/read - Clinics - CBC with platelets and differential - TSH with free T4 reflex Medication management - Lamotrigine Level - Comprehensive metabolic panel (BMP + Alb, Alk Phos, ALT, AST, Total. Bili, TP) - Lamotrigine Level - Comprehensive metabolic panel (BMP + Alb, Alk Phos, ALT, AST, Total. Bili, TP) Return in about 1 week (around 01/31/2022) for Recheck with pulm. Aydee Nam APRN CNP [facility] Marta is a 41 year old who presents for the following health issues History of Present Illness Mental Health Follow-up: Today's PHQ-9 PHQ-9 Total Score: 15 PHQ-9 Q9 Thoughts of better off /self-harm past 2 weeks : (P) Not at all How difficult have these problems made it for you to do your work, take care of things at home, or get along with other people: Extremely difficult Reason for visit: Cough Symptom onset: 3-4 weeks ago Symptoms include: Dry cough and coughing spells Symptom intensity: Severe Symptom progression: Worsening Had these symptoms before: No What makes it worse: Coughing spells What makes it better: Nebulizer for a short while She eats 0-1 servings of fruits and vegetables daily.She consumes 1 sweetened beverage(s) daily.She exercises with enough effort to increase her heart rate 10 to 19 minutes per day. She exercises with enough effort to increase her heart rate 3 or less days per week. She is taking medications regularly. ED/UC Followup: Facility: [facility] Emergency [facility] Date of visit: 01/14/2022 / 01/21/2022 Reason for visit: Cough, chest pain Current Status: Still coughing - getting worse, feeling very tired-drained, chest still hurts. Decreased appetite, dry mouth. Coughs a little when laying down - worse when stands. Sweats. Shaky and twitches Prescribed Tessalon, inhaler and nebs - minor relief -- neb works best but does not last long Duo neb Q 6 hours. Talking makes worse. Pulm 25th. Zio monitor currently on. Steroids done didn't make her feel better. Review of Systems Constitutional, HEENT, cardiovascular, pulmonary, GI, , musculoskeletal, neuro, skin, endocrine and psych systems are negative, except as otherwise noted in the HPI. Objective BP 126/70 (BP Location: Left arm, Patient Position: Chair, Cuff Size: Adult Large) Pulse (!) 130 Temp 98.7 ??F (37.1 ??C) (Tympanic) Ht 1.702 m (5' 7) Wt 93 kg (205 lb) LMP 12/11/2021 (ExactDate) SpO2 96% No BMI 32.11 kg/m?? Body mass index is 32.11 kg/m??. Physical Exam GENERAL: healthy, alert and no distress RESP: lungs clear to auscultation - no rales, rhonchi; intermittent Exp wheezes CV: regular rate and rhythm, normal [...] orders placed or performed in visit on 01/24/22 Lamotrigine Level Status: None Result Value Ref Range Lamotrigine 4.6 3.0 - 15.0 ug/mL TSH with free T4 reflex Status: Normal Result Value Ref Range TSH 2.25 0.40 - 4.00 mU/L Comprehensive metabolic panel (BMP + Alb, Alk Phos, ALT, AST, Total. Bili, TP) Status: Abnormal Result Value Ref Range Sodium 138 133 - 144 mmol/L Potassium 4.7 3.4 - 5.3 mmol/L Chloride 104 94 - 109 mmol/L Carbon Dioxide (CO2) 27 20 - 32 mmol/L Anion Gap 7 3 - 14 mmol/L Urea Nitrogen 14 7 - 30 mg/dL Creatinine 0.74 0.52 - 1.04 mg/dL Calcium 9.5 8.5 - 10.1 mg/dL Glucose 97 70 - 99 mg/dL Alkaline Phosphatase 113 40 - 150 U/L AST 17 0 - 45 U/L ALT 52 (H) 0 - 50 U/L Protein Total 7.3 6.8 - 8.8 g/dL Albumin 3.3 (L) 3.4 - 5.0 g/dL Bilirubin Total 0.4 0.2 - 1.3 mg/dL GFR Estimate >90 >60 mL/min/1.73m2 CBC with platelets and differential Status: None Result Value Ref Range WBC Count 9.4 4.0 - 11.0 10e3/uL RBC Count 3.92 3.80 - 5.20 10e6/uL Hemoglobin 12.0 11.7 - 15.7 g/dL Hematocrit 37.6 35.0 - 47.0 % MCV 96 78 - 100 fL MCH 30.6 26.5 - 33.0 pg MCHC 31.9 31.5 - 36.5 g/dL RDW 12.7 10.0 - 15.0 % Platelet Count 335 150 - 450 10e3/uL % Neutrophils 64 % % Lymphocytes 21 % % Monocytes 11 % % Eosinophils 3 % % Basophils 1 % % Immature Granulocytes 1 % Absolute Neutrophils 6.0 1.6 - 8.3 10e3/uL Absolute Lymphocytes 1.9 0.8 - 5.3 10e3/uL Absolute Monocytes 1.0 0.0 - 1.3 10e3/uL Absolute Eosinophils 0.3 0.0 - 0.7 10e3/uL Absolute Basophils 0.1 0.0 - 0.2 10e3/uL Absolute Immature Granulocytes 0.1 <=0.4 10e3/uL CBC with platelets and differential Status: None Narrative The following orders were created for panel order CBC with platelets and differential. Procedure Abnormality Status --------- ------ CBC with platelets and d...[[id number]] Final result Please view results for these tests on the individual orders. documented in this encounter Miscellaneous Notes Result Encounter Note - Aydee Nam APRN CNP - 01/24/2022 10:50 AM CDT Dear Marta, Here is a summary of your recent test results: All of your labs are normal. Lamictal level is okay. I am glad to hear you are feeling some improvement. I have talked to pulmonology today and he would like to continue what you are currently doing until he sees you Monday. Hopefully we are close to getting answers for you. Hang in there. For additional lab test information, [email or web address] is an excellent reference. In addition, here is a list of due or overdue Health Maintenance reminders: There are no preventive care reminders to display for this patient. Please call us at [phone] (or use [employer]) to address the above recommendations if needed. Thank you for choosing [facility]. It was an honor and a privilege to participate in your care. Healthy regards, TARA Spivey [facility] documented in this encounter Plan of Treatment Upcoming Encounters Date Type Specialty Care Team Description 09/26/2022 Appointment Speech Therapy Obdulio Barrera MD [address] [facility] [address] [place], [place] [address] Anabel Chew, BLEACH MAKER [place] [address] [facility] [address] [place], [place] [address] 09/27/2022 Therapy Visit Physical Therapy Luisana Watkins, PT [address] [place] [address] 09/29/2022 Virtual Visit Pain & Palliative Marilia Deluna, Care PhD [address] [place] [address] 09/30/2022 Office Visit Family Practice Aydee Nam APRN ACCOUNTING MACHINE OPERATOR [address] [place] [id number] 10/03/2022 Therapy Visit Physical Therapy Una Reardon, PT [address] [place] [address] 10/10/2022 Hospital Encounter Surgery Lesly Celaya MD [address] [place], [place] [id number] 10/10/2022 Office Visit Surgery Lesly Celaya MD [address] [place] [address] Ninoska Flowers PA-C [address] [id number] 10/10/2022 Surgery Surgery Lesly Celaya, EXCISION, MASSES - MD back, abdomen, [address] extremity [place], [place] [address] 10/11/2022 Virtual Visit Pharm Clari Stoll, [facility] [address] [facility] [address] [address] [address] [place] [address] 10/14/2022 Appointment Speech Therapy Anabel Chew, BLEACH MAKER [address] [id number] 10/21/2022 Office Visit Pulmonology Obdulio Barrera MD [address] [address] 10/25/2022 PRE VISIT ENT Charo Burton MD Previsit [address] [place], [place] [address] 10/25/2022 Office Visit ENT Charo Burton MD [address] [place], [place] [address] 10/25/2022 Office Visit ENT Provider, 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 Construction Inspector 10/28/2022 Appointment Speech Therapy Anabel Chew SLP [address] [id number] 11/17/2022 Appointment Speech Therapy Anabel Chew SLP [address] [address] 12/23/2022 Office Visit Neurology Colby Yeung MD [address] [place] [id number] Scheduled Procedures Name Priority Associated Diagnoses Date/Time EXCISION, MASS, TORSO Lipoma of skin and subcuta neous 10/10/2022 7:30 AM INFORMATION TECHNOLOGY OFFICER tissue documented as of this encounter Procedures Procedure Name Priority Date/Time Associated Comments Diagnosis CBC WITH PLATELETS AND Routine 01/24/2022 11:59 SOB (shortness of Results for this DIFFERENTIAL AM CDT breath) procedure are in Dizziness the results section. CBC WITH PLATELETS & Routine 01/24/2022 11:59 SOB (shortness o f Results for this DIFFERENTIAL AM CDT breath) procedure are in Dizziness the results section. LAMOTRIGINE LEVEL Routine 01/24/2022 11:59 Medication Result s for this AM CDT management procedure are i n the results section. TSH WITH FREE T4 Routine 01/24/2022 11:59 SOB (shortness of Re sults for this REFLEX AM CDT breath) procedure are in Dizziness the results section. COMPREHENSIVE Routine 01/24/2022 11:59 Medication Results fo r this METABOLIC PANEL AM CDT management procedure ar e in the results section. EKG 12-LEAD COMPLETE Routine 01/24/2022 11:30 SOB (shortness o f Results for this W/READ - CLINICS AM CDT breath) procedure are in Dizziness the results section. documented in this encounter Results ECHO COMPLETE (01/31/2022 4:18 PM CDT) P athologist Signature LVEF 60-65% CARDIOLOGY RESULTS Anatomical Region Laterality Modality Echocardiography Specimen (Source) Anatomical Collection Method Collection Time Re ceived Time Location / / Volume Laterality 01/31/2022 3:57 PM CDT Narrative 01/31/2022 4:37 PM CDT [id number]^CYRIL^AYDEE^VANESSA [facility] Echocardiography Laboratory [address] [place] [address] Name: MARTA HAWKINS : 1980 Study Date: 01/31/2022 03:57 PM Age: 42 yrs Gender: Female Patient Location: [facility] Reason For Study: Chest pain, unspecifie d type, Chest tightness, SOB (shortness of Ordering Physician: AYDEE NAM E Referring Physician: AYDEE NAM TE Performed By: [...] note might be different from the original. [id number]^CYRIL^AYDEE^[facility] Echocardiography Laboratory [address] [place] [address] Name: MARTA HAWKINS : 1980 Study Date: 01/31/2022 03:57 PM Age: 42 yrs Gender: Female Patient Location: [facility] Reason For Study: Chest pain, unspecifie [...] Babatunde Davis 0 01/31/2022 04:37 PM Aydee Vanessa Nam ORGANIZATIONAL EFFECTIVENESS DIRECTOR ACCOUNTING MACHINE OPERATOR CV ECHO ORDERABLES CBC with platelets and differential (01/24/2022 11:59 AM CDT) Analysis Performed At Patho logist Time Signature WBC Count 9.4 4.0 - 11.0 01/24/2022 [facility] 10e3/uL 12:04 PM CDT RBC Count 3.92 3.80 - 01/24/2022 [facility] 5.20 12:04 PM CDT 10e6/uL Hemoglobin 12.0 11.7 - 01/24/2022 [facility] 15.7 g/dL 12:04 PM CDT Hematocrit 37.6 35.0 - 01/24/2022 [facility] 47.0 % 12:04 PM CDT MCV 96 78 - 100 01/24/2022 [facility] fL 12:04 PM CDT MCH 30.6 26.5 - 01/24/2022 [facility] 33.0 pg 12:04 PM CDT MCHC 31.9 31.5 - 01/24/2022 [facility] 36.5 g/dL 12:04 PM CDT RDW 12.7 10.0 - 01/24/2022 [facility] 15.0 % 12:04 PM CDT Platelet Count 335 150 - 450 01/24/2022 [facility] 10e3/uL 12:04 PM CDT % Neutrophils 64 % 01/24/2022 [facility] 12:04 PM CDT % Lymphocytes 21 % 01/24/2022 [facility] 12:04 PM CDT % Monocytes 11 % 01/24/2022 [facility] 12:04 PM CDT % Eosinophils 3 % 01/24/2022 [facility] 12:04 PM CDT % Basophils 1 % 01/24/2022 [facility] 12:04 PM CDT % Immature 1 % 01/24/2022 [facility] Granulocytes 12:04 PM CDT Absolute 6.0 1.6 - 8.3 01/24/2022 [facility] Neutrophils 10e3/uL 12:04 PM CDT Absolute 1.9 0.8 - 5.3 01/24/2022 [facility] Lymphocytes 10e3/uL 12:04 PM CDT Absolute 1.0 0.0 - 1.3 01/24/2022 [facility] Monocytes 10e3/uL 12:04 PM CDT Absolute 0.3 0.0 - 0.7 01/24/2022 [facility] Eosinophils 10e3/uL 12:04 PM CDT Absolute 0.1 0.0 - 0.2 01/24/2022 [facility] Basophils 10e3/uL 12:04 PM CDT Absolute Immature 0.1 <=0.4 01/24/2022 [facility] RY Granulocytes 10e3/uL 12:04 PM CDT Specimen Anatomical Collection Method / Collection Time Recei edil Time (Source) Location / Volume Laterality Blood STRUCTURE OF RIGHT Venipuncture / 01/24/2022 11:59 UPPER LIMB / Unknown AM CDT 11:59 AM CDT Unknown Aydee Nam ORGANIZATIONAL EFFECTIVENESS DIRECTOR ACCOUNTING MACHINE OPERATOR LAB - BLOOD ORDERABLES Performing Organization Address City/State/ZIP Code Phon e Number [place] [address] [facility] [address] [place] [address] S[address] E. Lab (no room number, 1st floor of clinic) [place] [address], [facility] [address] [place] [address] S. E. Lab (no room number, 1st floor of clinic) (ABNORMAL) Comprehensive metabolic panel (BMP + Alb, Alk Phos, ALT, AST, Total. Bili, TP) (01/24/2022 11:59 AM CDT) [facility] Method Time Signature Sodium 138 133 - 144 01/24/2022 [facility] mmol/L 4:47 PM CDT Potassium 4.7 3.4 - 5.3 01/24/2022 [facility] mmol/L 4:47 PM CDT Chloride 104 94 - 109 01/24/2022 [facility] mmol/L 4:47 PM CDT Carbon Dioxide 27 20 - 32 01/24/2022 [facility] (CO2) mmol/L 4:47 PM CDT Anion Gap 7 3 - 14 01/24/2022 [facility] mmol/L 4:47 PM CDT Urea Nitrogen 14 7 - 30 01/24/2022 [facility] mg/dL 4:47 PM CDT Creatinine 0.74 0.52 - 01/24/2022 [facility] 1.04 mg/dL 4:47 PM CDT Calcium 9.5 8.5 - 10.1 01/24/2022 [facility] mg/dL 4:47 PM CDT Glucose 97 70 - 99 01/24/2022 [facility] mg/dL 4:47 PM CDT Alkaline 113 40 - 150 01/24/2022 [facility] Phosphatase U/L 4:47 PM CDT AST 17 0 - 45 U/L 01/24/2022 [facility] 4:47 PM CDT ALT 52 (H) 0 - 50 U/L 01/24/2022 [facility] 4:47 PM CDT Protein Total 7.3 6.8 - 8.8 01/24/2022 [facility] g/dL 4:47 PM CDT Albumin 3.3 (L) 3.4 - 5.0 01/24/2022 [facility] g/dL 4:47 PM CDT Bilirubin Total 0.4 0.2 - 1.3 01/24/2022 [facility] mg/dL 4:47 PM CDT GFR Estimate >90 >60 01/24/2022 [facility] mL/min/1.7 4:47 PM CDT 3m2 Comment: Effective November 02, 2021 eGF Rcr in adults is calculated using the 2020 CKD-EPI creatinine equation which includ es age and gender (Yulia et al., NEJ, DOI: 10.1056/RTCPyn1307396) Specimen Anatomical Collection Method / Collection Time Recei edil Time (Source) Location / Volume Laterality Blood STRUCTURE OF RIGHT Venipuncture / 01/24/2022 11:59 UPPER LIMB / Unknown AM CDT 11:59 AM CDT Unknown Aydee Nam APRN ACCOUNTING MACHINE OPERATOR LAB - BLOOD ORDERABLES Performing Organization Address City/State/ZIP Code Phon e Number [facility] [place], [place] [phone] [facility] [phone] [place] [address] Lab (no room number, 1st floor of clinic) [facility] [place], [place] [phone] [facility] [address] Lab (no room number, 1st floor of clinic) TSH with free T4 reflex (01/24/2022 11:59 AM CDT) athologist Signature TSH 2.25 0.40 - 4.00 01/24/2022 [facility] mU/L 4:54 PM CDT Specimen Anatomical Collection Method / Collection Time Recei edil Time (Source) Location / Volume Laterality Blood STRUCTURE OF RIGHT Venipuncture / 01/24/2022 11:59 UPPER LIMB / Unknown AM CDT 11:59 AM CDT Unknown Aydee Nam APRN ACCOUNTING MACHINE OPERATOR LAB - BLOOD ORDERABLES Performing Organization Address City/State/ZIP Code Phon e Number [facility] [place], [place] [phone] [facility] [address] [place] [address] Lab (no room number, 1st floor of clinic) [facility] [place], [place] [phone] [facility] [address] Lab (no room number, 1st floor of clinic) Lamotrigine Level (01/24/2022 11:59 AM CDT) athologist Signature Lamotrigine 4.6 3.0 - 15.0 01/26/2022 [facility] ug/mL 12:43 AM CDT Comment: INTERPRETIVE INFORMATION: ??Lamotrigine Therapeutic Range: ??3.0-15.0 ug/mL ?Toxic: ??Greater than or equal to 20 ug/mL Pharmacokinetics varies widely, particul becki with co-medications and/or compromised renal function. ??Adverse effects may include dizziness, somnolenc e, nausea and vomiting. Performed By: [facility] [address] [place] [id number] [employer] S[employer] Operator: Florence Naranjo MD Specimen Anatomical Collection Method / Collection Time Recei edil Time (Source) Location / Volume Laterality Blood STRUCTURE OF RIGHT Venipuncture / 01/24/2022 11:59 UPPER LIMB / Unknown AM CDT 11:59 AM CDT Unknown Aydee Nam [facility] - BLOOD ORDERABLES Performing Organization Address City/State/ZIP Code Phon e Number [facility] [place], [place] [phone] [address] [facility] [phone] EKG 12-lead complete w/read - Clinics (01/24/2022 11:30 AM CDT) Narrative This result has an attachment that is no t available. Aydee Nam ELADIO ACCOUNTING MACHINE OPERATOR ECG ORDERABLES documented in this encounter Visit Diagnoses Diagnosis Chest pain, unspecified type - Primary Chest tightness Other chest pain SOB (shortness of breath) Shortness of breath Pulmonary air trapping Wheezing Bronchospasm Acute bronchospasm Medication management Encounter for other specified aftercare Acute bronchitis with symptoms > 10 days Acute bronchitis Dizziness Dizziness and giddiness Chest pain, unspecified type Chest tightness Other [...] documented as of this encounter Care Teams Sound Recordist Relationship Specialty Start Date End Date Aydee Nam, PCP - General Nurse Practitioner - 05/17/21 ORGANIZATIONAL EFFECTIVENESS DIRECTOR ACCOUNTING MACHINE OPERATOR Family [address] [place], [place] [address] Aydee Nam, Assigned PCP 04/28/21 ORGANIZATIONAL EFFECTIVENESS DIRECTOR ACCOUNTING MACHINE OPERATOR [address] [place], [place] [id number] Louisa Hood, Assigned Neuroscience 07/11/21 ORGANIZATIONAL EFFECTIVENESS DIRECTOR ACCOUNTING MACHINE OPERATOR Provider [address] [place], [place] [phone] Se Levy, Lead Financial Intern 08/05/21 05/12/22 Clari Francois Pharmacist Pharmacist 08/06/21 06/07/[address] [phone] [place], Assigned Sleep 08/01/21 Angel Turcios, Provider [address] [place] [address] Lesly Celaya MD Assigned Surgical 09/05/21 [address] [place] [address] Tawana Patel MA [facility] 09/30/21 Worker Ramses Mcpherson Assigned OBGYN 11/07/21 MD Onesimo Provider [address] [place] [address] Obdulio Barrera MD Critical Care 01/24/[address] [place] [address] [address] [place] [address] Mago Swift, [facility] Lead Financial Intern Nutrition Teacher - 08/05/21 Clinical documented as of this encounter
--- OUTSIDE RECORDS SUMMARY | 2022-09-21 04:11 | XMS_ITS | Encounter Summary ---
:1980 Author Organization [facility] Address [address] [place] [address] Care Team Providers Name Role Phone Aydee Burton CAD APPLICATION SUPPORT SPECIALIST MARIONETTE PERFORMER Primary Care Provider Aydee Burton CAD APPLICATION SUPPORT SPECIALIST MARIONETTE PERFORMER Unavailable [phone] Louisa Hood CAD APPLICATION SUPPORT SPECIALIST MARIONETTE PERFORMER Unavailable [phone] Se Levy CASER UP Unavailable Unavailable Clari Ruiz [facility] Unavailable Angel Hannah MD Unavailable Lesly Celaya MD Unavailable Tawana Patel MA Unavailable Unavailable Ramses Mcpherson MD Unavailable [phone] Mago Swift RADIOLOGICAL METALLURGIST Unavailable Reason for Visit Reason Comments Chest Pain Shortness of Breath Encounter Details Date Type Department Care Team Description 01/14/2022 Emergency [facility] Ramses Amezcua hronic cough; [facility] Emergency Dep param Stacy MD Small airways disease [address] [facility] [address] [address] [place] [phone] [address] [place] [address] (Wo rk) Social History Tobacco Use Types [...] How often do you attend congregational or oriental orthodox services? Never 08/05/2021 Do you belong [...] at Date Recorded Female 11/09/2021 7:53 PM COMPOSING ROOM SUPERVISOR COVID-19 Exposure Response Date Recorded In the last month, have you been in contact with No / Unsure 01/14/2022 12:47 PM COMPOSING ROOM SUPERVISOR someone who was confirmed or suspected to have Coronavirus / COVID-19? documented as of this encounter Last Filed Vital Signs Vital Sign Reading Time Taken Comments Blood Pressure 128/79 01/14/2022 7:30 PM COMPOSING ROOM SUPERVISOR Pulse 78 01/14/2022 7:30 PM COMPOSING ROOM SUPERVISOR Temperature 36.1 ??C (97 ??F) 01/14/2022 5:11 PM COMPOSING ROOM SUPERVISOR Respiratory Rate 18 01/14/2022 5:11 PM COMPOSING ROOM SUPERVISOR Oxygen Saturation 100% 01/14/2022 7:30 PM COMPOSING ROOM SUPERVISOR Inhaled Oxygen Concentration - - Weight - - Height - - Body Mass Index - - documented in this encounter Discharge Instructions AttachmentsThe following attachments cannot be sent through Care Everywhere.Lung Problems, Chest and (Slovenian)documented in this encounter Medications at Time of Discharge Medication Sig Dispensed Refills Start Date End Date acetaminophen (TYLENOL) Take 500-1,000 mg by 0 500 MG tablet mouth every 6 hours as needed for mild pain buPROPion (WELLBUTRIN XL) Take 1 tablet (300 30 tablet 2 300 MG 24 hr mg) by mouth daily tabletIndications: PTSD (post-traumatic stress disorder) DULoxetine (CYMBALTA) 60 Take 120 mg by mouth 0 MG capsule At Bedtime 2 tablets - 120mg total QUEtiapine (SEROQUEL) 100 Take 100 mg by mouth 30 tablet 2 01/14/2022 MG tablet as needed QUEtiapine (SEROQUEL) 200 Take 200 mg by mouth 0 MG tablet At Bedtime vitamin D3 Take 1 tablet by 0 (CHOLECALCIFEROL) 50 mcg mouth daily (2000 units) tablet albuterol (PROAIR Inhale 2 puffs into 18 g 0 2 02/09/2022 HFA/PROVENTIL the lungs every 4 HFA/VENTOLIN HFA) 108 (90 hours as needed for Base) MCG/ACT shortness of breath inhalerIndications: / dyspnea or Reduced chest expansion wheezing on inspiration, Wheezing ascorbic acid (VITAMIN C) Take 750 mg by mouth 0 06/16/2022 250 MG CHEW chewable daily tablet gabapentin (NEURONTIN) 4 times daily 0 12/14/2021 04/29/2022 400 MG capsule lamoTRIgine (LAMICTAL) Take 1 tablet (100 0 01/1402/12/2022 100 MG tablet mg) by mouth daily And a 200mg Total dose in 300mg daily lamoTRIgine (LAMICTAL) Take 1 tablet (200 0 01/1402/12/2022 200 MG tablet mg) by mouth daily With a 100 mg to total 300mg daily methocarbamol (ROBAXIN) Take 1-1.5 tablets 90 tablet 1 03/0 12/202105/14/2022 500 MG tabletIndications: (500-750 mg) by Chronic myofascial pain, mouth 3 times daily Trigger point of shoulder as needed for muscle region, unspecified spasms laterality ondansetron (ZOFRAN-ODT) Take 1 tablet (4 mg) 12 tablet 0 0 01/14/2022 02/11/2022 4 MG ODT tabIndications: by mouth every 8 S/P laparoscopic hours as needed for hysterectomy nausea predniSONE (DELTASONE) 20 Take two tablets (= 10 tablet 0 0 01/14/2022 01/24/2022 MG tablet 40mg) each day for 5 (five) days documented as of this encounter ED Notes Clari Sloan RN - 01/14/2022 5:09 PM CST Pt with hysterectomy a few weeks ago, pt states cough and SOB a week after. Went to clinic and had elevated d.dimer. Sent here to r/o PE. ABC;s intact, alert and oriented X3. Ramses Anne MD - 01/14/2022 5:05 PM CST History Chief Complaint: Shortness of Breath HPI Marta Hill is a 41 year old female who is status post total hysterectomy on 12/28 who presents with shortness of breath. Per chart review, the patient presented to clinic today for shortness of breath and was referred here due to an elevated D-dimer. Per the patient, she developed a cough, mildchest pain, and shortness of breath about a week after her surgery. She also reports chills and diaphoresis yesterday. She also has had wheezing at night. She has a history of asthma during illness. She denies fever and tobacco use. She also denies a family history of lung issues. D Dimer Quantitative 01/14/2022 @ 1356 1.33(H) Review of Systems Constitutional: Positive for chills and diaphoresis. Negative for fever. Respiratory: Positive for cough, shortness of breath and wheezing. Cardiovascular: Positive for chest pain. All other systems reviewed and are negative. Allergies: Amoxicillin Medications: Albuterol Bupropion Duloxetine Gabapentin Lamotrigine Methocarbamol Quetiapine Past Medical History: Depressive disorder Hypertension Sleep apnea Asthma PTSD SHAMEKA Hepatic steatosis Bilateral carpal tunnel syndrome Bilateral occipital neuralgia Past Surgical History: Breast augmentation Sinus surgery for epistaxis Excise multiple lipomas Tubal ligation and ablation Total hysterectomy with bilateral salpingectomy Surgery for radial head fracture Family History: Father: Hypertension, cerebrovascular disease, depression, anxiety disorder, substance abuse, asthma Sister: Depression, anxiety disorder, substance abuse, asthma Mother: Depression, anxiety disorder, substance abuse, asthma Daughter: Depression, anxiety disorder, asthma Son: Asthma Social History: The patient was accompanied to the ER by a friend Tobacco Use: Negative Physical Exam Patient Vitals for the past 24 hrs: BP Temp Temp src Pulse Resp SpO2 01/14/22 1930 128/79 -- -- 78 -- 100 % 01/14/22 1711 (!) 148/89 97 ??F (36.1 ??C) Temporal 105 18 100 % Physical Exam General: Patient is awake, alert and interactive when I enter the room Head: The scalp, face, and head appear normal Eyes: The pupils are equal, round, and reactive to light. Conjunctivae and sclerae are normal Neck: Normal range of motion. CV: Regular rate and rhythm. Peripheral pulses including radial pulses are symmetric. Resp: Lungs are clear without wheezes or rales. No respiratory distress. GI: Abdomen is soft, no rigidity, guarding, or rebound. No distension. No tenderness to palpation inany quadrant. MS: Chest wall is non tender to palpation. No asymmetric leg swelling, calf or thigh tenderness. Skin: No rash or lesions noted. Normal capillary refill noted Neuro: Speech is normal and fluent. Face is symmetric. Moving all extremities. Psych: Normal affect. Appropriate interactions. Emergency Department Course Imaging: CT Chest Pulmonary Embolism w Contrast Final Result IMPRESSION: 1. Mild air trapping often associated with small vessel or small airways disease. Mild fibroatelectasis without effusion or definite infiltrate. 2. No pulmonary embolus, aortic aneurysm or dissection. The above imaging workup was performed. Report per radiology Laboratory: Labs Ordered and Resulted from Time of ED Arrival to Time of ED Departure CBC WITH PLATELETS AND DIFFERENTIAL - Abnormal Result Value WBC Count 5.1 RBC Count 4.08 Hemoglobin 12.4 Hematocrit 40.1 MCV 98 MCH 30.4 MCHC 30.9 (*) RDW 12.3 Platelet Count 347 % Neutrophils 69 % Lymphocytes 13 % Monocytes 16 % Eosinophils 0 % Basophils 1 % Immature Granulocytes 1 NRBCs per 100 WBC 0 Absolute Neutrophils 3.5 Absolute Lymphocytes 0.7 (*) Absolute Monocytes 0.8 Absolute Eosinophils 0.0 Absolute Basophils 0.1 Absolute Immature Granulocytes 0.1 Absolute NRBCs 0.0 BASIC METABOLIC PANEL - Normal Sodium 136 Potassium 3.7 Chloride 102 Carbon Dioxide (CO2) 31 Anion Gap 3 Urea Nitrogen 9 Creatinine 0.63 Calcium 9.1 Glucose 93 GFR Estimate >90 INFLUENZA A/B & SARS-COV2 PCR MULTIPLEX - Normal Influenza A PCR Negative Influenza B PCR Negative SARS CoV2 PCR Negative Emergency Department Course: Reviewed: I reviewed nursing notes, vitals and past medical history Assessments: 1903 I obtained history and examined the patient as noted above. Interventions: Prednisone, 60 mg, Oral Disposition: The patient was discharged to home. Impression & Plan Medical Decision Making: Marta Hill is a 41 year old female with recent history of total hysterectomy on December 28 presents emergency department with ongoing cough and shortness of breath. Upon initial evaluation here she is hemodynamically stable with normal vital signs. She is afebrile. She is oxygenating well on room air. Patient initially presented to outside clinic where she was found to have an elevated D-dimer therefore was sent to the emergency department for further evaluation. CT PE study was obtained which thankfully did not show any signs of clot burden or significant infectious pathology. There was evidence of some possible early small airway disease. In speaking with the patient and her shehas been having worsening cough at night and reports wheezing when she is sleeping. Possiblethat there may be an element of reactive airway disease driving some of her symptoms. She was prescribed a albuterol inhaler at urgent care but I will also add on a short course of prednisone to evaluate if she has some improvement. Advised the patient to follow-up with her primary care physician regardless and return to the emergency department with any new or worsening symptoms. The remainder of the patient's work-up is reassuring and I believe she is safe for outpatient management. Covid-19 Marta Hill was evaluated during a global COVID-19 pandemic, which necessitated considerationthat the patient might be at risk for infection with the SARS-CoV-2 virus that causes COVID-19. Applicable protocols for evaluation were followed during the patient's care. COVID-19 was considered as part of the patient's evaluation. The plan for testing is: a test was obtained during this visit. Diagnosis: ICD-10-CM 1. Chronic cough R05.3 2. 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 Ramses Amezcua MD 01/14/22 [address] RO[address] SUPERVISOR documented in this encounter Plan of Treatment Upcoming Encounters Date Type Specialty Care Team Description 09/26/2022 Appointment Speech Therapy Obdulio Barrera MD [address] [facility] [place] [address] [place], [place] [address] Anabel Chew, MICROFILM OPERATOR [address] [place], [place] [address] 09/27/2022 Therapy Visit Physical Therapy Luisana Watkins, PT [address] [place] [address] 09/29/2022 Virtual Visit Pain & Palliative Marilia Deluna, Care PhD [address] [place], [place] [address] 09/30/2022 Office Visit Family Practice Aydee Burton APRN [facility] [address] [place], [place] [phone] 10/03/2022 Therapy Visit Physical Therapy Una Reardon, PT [address] [place] [phone] 10/10/2022 Hospital Encounter Surgery Lesly Celaya MD [address] [place], [place] [phone] 10/10/2022 Office Visit Surgery eLsly Celaya MD [address] [place], [place] [phone] Ninoska Flowers, FLORES-Ynes [address] [place] [address] 10/10/2022 Surgery Surgery Lesly Celaya, EXCISION, MASSES - MD back, abdomen, [address] extremity [place], [place] [phone] 10/11/2022 Virtual Visit Pharm Clari Stoll, [facility] [id number] [place], [place] [address] 10/14/2022 Appointment Speech Therapy Anabel Chew, MICROFILM OPERATOR [facility] [address] [facility] [place] [address] [place], [place] [address] 10/21/2022 Office Visit Pulmonology Obdulio Barrera MD [address] [facility] [place] [address] [place], [place] [phone] 10/25/2022 PRE VISIT Charo Carter MD Previsit [address] [place] [address] 10/25/2022 Office Visit Charo Carter MD [address] [place] [phone] 10/25/2022 Office Visit ENT Provider, Jeannette 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 Dental Hygiene Administrative Assistant 10/28/2022 Appointment Speech Therapy Anabel Chew, CELINE [address] [address] 11/17/2022 Appointment Speech Therapy Anabel Chew SLP [address] [phone] 12/23/2022 Office Visit Neurology Colby Yeung MD [address] [place] [address] Scheduled Procedures Name Priority Associated Diagnoses Date/Time EXCISION, MASS, TORSO Lipoma of skin and subcuta neous 10/10/2022 7:30 AM COMPOSING ROOM SUPERVISOR tissue documented as of this encounter Procedures Procedure Name Priority Date/Time Associated Comments Diagnosis CT CHEST PULMONARY STAT 01/14/2022 6:25 PM Res ults for this EMBOLISM W CONTRAST COMPOSING ROOM SUPERVISOR procedur e are in the results section. INFLUENZA A/B & STAT 01/14/2022 5:33 PM Result s for this SARS-COV2 PCR COMPOSING ROOM SUPERVISOR procedure are in MULTIPLEX the results section. EXTRA TUBE STAT 01/14/2022 5:17 PM Results f or this COMPOSING ROOM SUPERVISOR procedure are i n the results section. EXTRA PURPLE TOP TUBE STAT 01/14/2022 5:17 PM Results for this COMPOSING ROOM SUPERVISOR procedure are i n the results section. EXTRA GREEN TOP STAT 01/14/2022 5:17 PM Result s for this (LITHIUM HEPARIN) COMPOSING ROOM SUPERVISOR procedure are in TUBE the results section. EXTRA RED TOP TUBE STAT 01/14/2022 5:17 PM Res ults for this COMPOSING ROOM SUPERVISOR procedure are i n the results section. EXTRA BLUE TOP TUBE STAT 01/14/2022 5:17 PM Re sults for this COMPOSING ROOM SUPERVISOR procedure are i n the results section. CBC WITH PLATELETS STAT 01/14/2022 5:17 PM Res ults for this AND DIFFERENTIAL COMPOSING ROOM SUPERVISOR procedure a re in the results section. CBC WITH PLATELETS & STAT 01/14/2022 5:17 PM R esults for this DIFFERENTIAL COMPOSING ROOM SUPERVISOR procedure are i n the results section. BASIC METABOLIC PANEL STAT 01/14/2022 5:17 PM Results for this COMPOSING ROOM SUPERVISOR procedure are i n the results section. documented in this encounter Results CT Chest Pulmonary Embolism w Contrast (01/14/2022 6:25 PM COMPOSING ROOM SUPERVISOR) Anatomical Region Laterality Modality Chest, SUBRAD CT BODY, UMP CT CHEST Comp uted Tomography Specimen (Source) Anatomical Collection Method Collection Time Re ceived Time Location / / Volume Laterality 01/14/2022 6:12 PM COMPOSING ROOM SUPERVISOR Impressions 01/14/2022 6:32 PM COMPOSING ROOM SUPERVISOR IMPRESSION: 1. ??Mild air trapping often associated with small vessel or small airways disease. Mild fibroatelectasis without effusion or definite infiltrate. 2. ??No pulmonary embolus, aortic aneury sm or dissection. Narrative 01/14/2022 6:32 PM COMPOSING ROOM SUPERVISOR EXAM: CT CHEST PULMONARY EMBOLISM W CONTRAST LOCATION: [facility] DATE/TIME: 01/14/2022 6:12 PM INDICATION: PE suspected, low/intermedia te prob, positive D-dimer, shortness of breath, chest pain COMPARISON: None. TECHNIQUE: CT chest pulmonary angiogram during arterial phase injection of IV contrast. Multiplanar reformats and MIP reconstructions were performed. Dose reduction techniques were used. CONTRAST: 80 mL Isovue 370 FINDINGS: ANGIOGRAM CHEST: Pulmonary arteries are normal caliber and negative for pulmonary emboli. Thoracic aorta is negative for dissection. No CT evidence of right heart strain. LUNGS AND PLEURA: Mild air trapping ofte n associated with small vessel or small airways disease. Mild fibroatelectasis with no effusion or definite infiltrate. MEDIASTINUM/AXILLAE: Normal. CORONARY ARTERY CALCIFICATION: None. UPPER ABDOMEN: Normal. MUSCULOSKELETAL: Degenerative disease. B ilateral breast implants. Procedure Note Rajiv Cruz MD - 01/14/2022F ormatting of this note might be different from the original. EXAM: CT CHEST PULMONARY EMBOLISM W CONT RAST LOCATION: [facility] DATE/TIME: 01/14/2022 6:12 PM INDICATION: PE suspected, low/intermedia te prob, positive D-dimer, shortness of breath, chest pain COMPARISON: None. TECHNIQUE: CT chest pulmonary angiogram during arterial phase injection of IV contrast. Multiplanar reformats and MIP reconstructions were performed. Dose reduction techniques were used. CONTRAST: 80 mL Isovue 370 FINDINGS: ANGIOGRAM CHEST: Pulmonary arteries are normal caliber and negative for pulmonary emboli. Thoracic aorta is negative for dissection. No CT evidence of right heart strain. LUNGS AND PLEURA: Mild air trapping ofte n associated with small vessel or small airways disease. Mild fibroatelectasis with no effusion or definite infiltrate. MEDIASTINUM/AXILLAE: Normal. CORONARY ARTERY CALCIFICATION: None. UPPER ABDOMEN: Normal. MUSCULOSKELETAL: Degenerative disease. B ilateral breast implants. IMPRESSION: 1. Mild air trapping often associated wi th small vessel or small airways disease. Mild fibroatelectasis without effusion or definite infiltrate. 2. No pulmonary embolus, aortic aneurysm or dissection. Rmases Amezcua MD IMG CT ORDERABLES Symptomatic; Unknown Influenza A/B & SARS-CoV2 (COVID-19) Virus PCR Multiplex Nasopharyngeal (01/14/2022 5:33 PM COMPOSING ROOM SUPERVISOR) Analysis Performed At Patho logist Time Signature Influenza A Negative Negative 01/14/2022 LABORATORY PCR 6:29 PM COMPOSING ROOM SUPERVISOR Influenza B Negative Negative 01/14/2022 LABORATORY PCR 6:29 PM COMPOSING ROOM SUPERVISOR SARS CoV2 PCR Negative Negative 01/14/2022 LABORATORY 6:29 PM COMPOSING ROOM SUPERVISOR Comment: NEGATIVE: SARS-CoV-2 (COVID-19) RNA not detected, presumed negative. Specimen Anatomical Location / Collection Method Collection Yeyo e Received Time (Source) Laterality / Volume Swab NASOPHARYNGEAL Non-blood 01/14/2022 5:33 01/14/2022 5:36 STRUCTURE / Unknown Collection / PM COMPOSING ROOM SUPERVISOR PM COMPOSING ROOM SUPERVISOR Unknown Narrative [facility] - 01/14/2022 6:29 PM COMPOSING ROOM SUPERVISOR Testing was performed using the amara SARS-CoV-2 & Influenza A/B Assay on the amara Trudy System. This test should be ordered for the detection of SARS-CoV-2 and influenza viruses in individuals who meet clinical and/or epidemiological cri teria. Test performance is unknown in asymptomatic patients. This test is for in vitro diagnostic use under the FDA EUA for laboratories certified under CLIA to p erform moderate and/or high complexity t esting. This test has not been FDA cleared or approved. A negative result does not rule out the presence of PCR inhibitors in the specimen or target RNA in concen tration below the limit of detection for the assay. If only one viral target is positive but coinfection with multiple targets is suspected, the sample should be re-tested with another FDA cleared, appr kwame or authorized test, if coinfection would change clinical management. [facility] are certified under the Clinical Laboratory Improvement Amendments of 1988 (CLIA-88) as qualified to perform moderate and/or hig h complexity laboratory testing. Ramses Amezcua MD LAB - MICRO GENERAL ORD ERABLES Performing Organization Address City/[facility]/ZIP [place] [address] [facility] [address] Lab (1st floor, no room number) Extra Purple Top Tube (01/14/2022 5:17 PM COMPOSING ROOM SUPERVISOR) athologist Signature Hold Specimen JI 01/14/2022 [facility] 6:46 PM COMPOSING ROOM SUPERVISOR Specimen Anatomical Collection Method / Collection Time Recei edil Time (Source) Location / Volume Laterality Blood STRUCTURE OF RIGHT Venipuncture / 01/14/2022 5:17 03/0 02/2022 5:32 UPPER LIMB / Unknown PM COMPOSING ROOM SUPERVISOR PM COMPOSING ROOM SUPERVISOR Unknown Ramses Amezcua MD LAB - BLOOD ORDERABLES Performing Organization Address City/[facility]/ZIP [place] [address] [facility] [address] Lab (1st floor, no room number) Extra Green Top ([place] Heparin) Tube (01/14/2022 5:17 PM COMPOSING ROOM SUPERVISOR) athologist Signature Hold Specimen [facility] 01/14/2022 LABORATORY 6:46 PM COMPOSING ROOM SUPERVISOR Specimen Anatomical Collection Method / Collection Time Recei edil Time (Source) Location / Volume Laterality Blood STRUCTURE OF RIGHT Venipuncture / 01/14/2022 5:17 03/0 02/2022 5:32 UPPER LIMB / Unknown PM COMPOSING ROOM SUPERVISOR PM COMPOSING ROOM SUPERVISOR Unknown Ramses Amezcua MD LAB - BLOOD ORDERABLES Performing Organization Address City/[facility]/ZIP [place] [address] [facility] [address] Lab (1st floor, no room number) Extra Red Top Tube (01/14/2022 5:17 PM COMPOSING ROOM SUPERVISOR) athologist Signature Hold Specimen JI 01/14/2022 [facility] 6:46 PM COMPOSING ROOM SUPERVISOR Specimen Anatomical Collection Method / Collection Time Recei edil Time (Source) Location / Volume Laterality Blood STRUCTURE OF RIGHT Venipuncture / 01/14/2022 5:17 03/0 02/2022 5:32 UPPER LIMB / Unknown PM COMPOSING ROOM SUPERVISOR PM COMPOSING ROOM SUPERVISOR Unknown Ramses Amezcua MD LAB - BLOOD ORDERABLES Performing Organization Address City/State/ZIP Code [place] [address] [facility] [address] Lab (1st floor, no room number) Extra Blue Top Tube (01/14/2022 5:17 PM COMPOSING ROOM SUPERVISOR) athologist Signature Hold Specimen [facility] 01/14/2022 [facility] 6:46 PM COMPOSING ROOM SUPERVISOR Specimen Anatomical Collection Method / Collection Time Recei edil Time (Source) Location / Volume Laterality Blood STRUCTURE OF RIGHT Venipuncture / 01/14/2022 5:17 03/0 02/2022 5:32 UPPER LIMB / Unknown PM COMPOSING ROOM SUPERVISOR PM COMPOSING ROOM SUPERVISOR Unknown Ramses Amezcua MD LAB - BLOOD ORDERABLES Performing Organization Address City/State/ZIP Code [place] [address] [facility] [address] Lab (1st floor, no room number) (ABNORMAL) CBC with platelets and differential (01/14/2022 5:17 PM COMPOSING ROOM SUPERVISOR) Patholo gist Method Time Signature WBC Count 5.1 4.0 - 01/14/2022 [facility] 11.0 5:40 PM COMPOSING ROOM SUPERVISOR 10e3/uL RBC Count 4.08 3.80 - 01/14/2022 [facility] 5.20 5:40 PM COMPOSING ROOM SUPERVISOR 10e6/uL Hemoglobin 12.4 11.7 - 01/14/2022 [facility] 15.7 g/dL 5:40 PM COMPOSING ROOM SUPERVISOR Hematocrit 40.1 35.0 - 01/14/2022 [facility] 47.0 % 5:40 PM COMPOSING ROOM SUPERVISOR MCV 98 78 - 100 01/14/2022 [facility] fL 5:40 PM COMPOSING ROOM SUPERVISOR MCH 30.4 26.5 - 01/14/2022 [facility] 33.0 pg 5:40 PM COMPOSING ROOM SUPERVISOR MCHC 30.9 (L) 31.5 - 01/14/2022 [facility] 36.5 g/dL 5:40 PM COMPOSING ROOM SUPERVISOR RDW 12.3 10.0 - 01/14/2022 [facility] 15.0 % 5:40 PM COMPOSING ROOM SUPERVISOR Platelet Count 347 150 - 450 01/14/2022 [facility] 10e3/uL 5:40 PM COMPOSING ROOM SUPERVISOR % Neutrophils 69 % 01/14/2022 [facility] 5:40 PM COMPOSING ROOM SUPERVISOR % Lymphocytes 13 % 01/14/2022 [facility] 5:40 PM COMPOSING ROOM SUPERVISOR % Monocytes 16 % 01/14/2022 [facility] 5:40 PM COMPOSING ROOM SUPERVISOR % Eosinophils 0 % 01/14/2022 [facility] 5:40 PM COMPOSING ROOM SUPERVISOR % Basophils 1 % 01/14/2022 [facility] 5:40 PM COMPOSING ROOM SUPERVISOR % Immature 1 % 01/14/2022 [facility] Granulocytes 5:40 PM COMPOSING ROOM SUPERVISOR NRBCs per 100 0 <1 /100 01/14/2022 [facility] WBC 5:40 PM COMPOSING ROOM SUPERVISOR Absolute 3.5 1.6 - 8.3 01/14/2022 [facility] Neutrophils 10e3/uL 5:40 PM COMPOSING ROOM SUPERVISOR Absolute 0.7 (L) 0.8 - 5.3 01/14/2022 [facility] Lymphocytes 10e3/uL 5:40 PM COMPOSING ROOM SUPERVISOR Absolute 0.8 0.0 - 1.3 01/14/2022 [facility] Monocytes 10e3/uL 5:40 PM COMPOSING ROOM SUPERVISOR Absolute 0.0 0.0 - 0.7 01/14/2022 [facility] Eosinophils 10e3/uL 5:40 PM COMPOSING ROOM SUPERVISOR Absolute 0.1 0.0 - 0.2 01/14/2022 [facility] Basophils 10e3/uL 5:40 PM COMPOSING ROOM SUPERVISOR Absolute 0.1 <=0.4 01/14/2022 [facility] Immature 10e3/uL 5:40 PM COMPOSING ROOM SUPERVISOR Granulocytes Absolute NRBCs 0.0 10e3/uL 01/14/2022 [facility] 5:40 PM COMPOSING ROOM SUPERVISOR Specimen Anatomical Collection Method / Collection Time Recei edil Time (Source) Location / Volume Laterality Blood STRUCTURE OF RIGHT Venipuncture / 01/14/2022 5:17 03/0 02/2022 5:32 UPPER LIMB / Unknown PM COMPOSING ROOM SUPERVISOR PM COMPOSING ROOM SUPERVISOR Unknown Ramses Amezcua MD LAB - BLOOD ORDERABLES Performing Organization Address City/State/ZIP [place] [address] [facility] [address] Lab (1st floor, no room number) Basic metabolic panel (01/14/2022 5:17 PM COMPOSING ROOM SUPERVISOR) P athologist Signature Sodium 136 133 - 144 01/14/2022 LABORATORY mmol/L 6:09 PM COMPOSING ROOM SUPERVISOR Potassium 3.7 3.4 - 5.3 01/14/2022 LABORATORY mmol/L 6:09 PM COMPOSING ROOM SUPERVISOR Chloride 102 94 - 109 01/14/2022 LABORATORY mmol/L 6:09 PM COMPOSING ROOM SUPERVISOR Carbon Dioxide 31 20 - 32 01/14/2022 LABORATORY (CO2) mmol/L 6:09 PM COMPOSING ROOM SUPERVISOR Anion Gap 3 3 - 14 01/14/2022 LAB[facility]ATORY mmol/L 6:09 PM COMPOSING ROOM SUPERVISOR Urea Nitrogen 9 7 - 30 01/14/2022 LABORATORY mg/dL 6:09 PM COMPOSING ROOM SUPERVISOR Creatinine 0.63 0.52 - 01/14/2022 LABORATORY 1.04 mg/dL 6:09 PM COMPOSING ROOM SUPERVISOR Calcium 9.1 8.5 - 10.1 01/14/2022 LABORATORY mg/dL 6:09 PM COMPOSING ROOM SUPERVISOR Glucose 93 70 - 99 01/14/2022 LABORATORY mg/dL 6:09 PM COMPOSING ROOM SUPERVISOR GFR Estimate >90 >60 01/14/2022 LAB[facility]ATORY mL/min/1.7 6:09 PM COMPOSING ROOM SUPERVISOR 3m2 Comment: Effective November 02, 2021 eGF Rcr in adults is calculated using the 2020 CKD-EPI creatinine equation which includ es age and gender (Yulia et al., NEJM, DOI: 10.1056/FGWIjf4349073) Specimen Anatomical Collection Method / Collection Time Recei edil Time (Source) Location / Volume Laterality Blood STRUCTURE OF RIGHT Venipuncture / 01/14/2022 5:17 03/0 02/2022 5:32 UPPER LIMB / Unknown PM COMPOSING ROOM SUPERVISOR PM COMPOSING ROOM SUPERVISOR Unknown Ramses Amezcua MD LAB - BLOOD ORDERABLES Performing Organization Address City/State/ZIP [place] [address] [facility] [address] Lab (1st floor, no room number) documented in this encounter Visit Diagnoses Diagnosis Chronic cough Cough Small airways disease Other diseases of lung, not elsewhere cl assified Lipoma of skin and subcutaneous tissue Lipoma of other skin and subcutaneous ti ssue documented in this encounter Administered Medications Inactive Administered Medications - up to 3 most recent administrations Medication Order MAR Action Action Date Dose Rate Site iopamidol (ISOVUE-370) solution Given 01/14/2022 6:19 PM COMPOSING ROOM SUPERVISOR 80 mLs 500 mL 500 mL, Intravenous, ONCE, On Mon01/14/22 at 1815, For 1 dose predniSONE (DELTASONE) tablet 60 mg Given 01/14/2022 7:31 PM COMPOSING ROOM SUPERVISOR 60 mg 60 mg, Oral, ONCE, On Mon01/14/22 at 1920, For 1 dose sodium chloride (PF) 0.9% PF flush 100 m L Given 01/14/2022 6:19 PM COMPOSING ROOM SUPERVISOR 90 mLs 100 mL, Intravenous, ONCE, On Mon01/14/22 at 1815, For 1 dose documented in this encounter Active and Recently Administered Medications Times are shown in COMPOSING ROOM SUPERVISOR. Scheduled Medication Order 01/12/2022 01/13/2022 01/14/2022 iopamidol (ISOVUE-370) solution 500 mL (COMPLETED) 1818 (Given - Provider: Diana Bennett) 500 mL, Intravenous, ONCE, On Mon01/14/22 at 1815, For 1 dose predniSONE (DELTASONE) tablet 60 mg (COMPLETED) 1930 (Given - Provider: Jose C Burkett RN) 60 mg, Oral, ONCE, On Mon01/14/22 at 1920, For 1 dose sodium chloride (PF) 0.9% PF flush 100 mL (COMPLETED) 1818 (Given - Provider: Diana Bennett) 100 mL, Intravenous, ONCE, On Mon01/14/22 at 1815, For 1 dose documented in this encounter Additional Health Concerns Infection Onset Date Last Indicated Resolved Time Rule Out COVID-19 01/14/2022 01/14/2022 01/14/2022 6:2 9 PM COMPOSING ROOM SUPERVISOR Assessment Noted Time PHQ-9 Depression Total Score: 06/28/2021 7:03 AM CD T documented as of this encounter Care Teams Human Resources Analyst Relationship Specialty Start Date End Date Aydee Burton, PCP - General Nurse Practitioner - 05/17/21 CAD APPLICATION SUPPORT SPECIALIST MARIONETTE PERFORMER Family [address] [place], [place] [phone] Aydee Burton, Assigned PCP 04/28/21 CAD APPLICATION SUPPORT SPECIALIST MARIONETTE PERFORMER [address] [place], [place] [phone] Louisa Hood, Assigned Neuroscience 07/11/21 CAD APPLICATION SUPPORT SPECIALIST MARIONETTE PERFORMER Provider [address] [place], [place] [phone] Se Levy, Lead Solar Sales Advisor 08/05/21 05/12/22 [place] Clari Ruiz Pharmacist Pharmacist 08/06/21 06/07/22 [facility] [address] [place], [place] [phone] [place], Assigned Sleep 08/01/21 Angel Turcios, Provider [address] [place] [address] Lesly Celaya MD Assigned Surgical 09/05/21 [address] Provider [place], [place] [address] Tawana Patel MA [facility] 09/30/21 Worker Ramses Mcpherson Assigned OBGYN 11/07/21 MD Onesimo Provider [address] [place], [place] [phone] Mago Swift [facility] Lead Solar Sales Advisor Special Education Preschool Teacher - 08/05/21 Clinical documented as of this encounter
--- OUTSIDE RECORDS SUMMARY | 2022-09-21 04:11 | XMS_ITS | Encounter Summary ---
:1980 Author Organization [place] Address [address] [facility] [place] [address] Care Team Providers Name Role Phone Aydee Burton APRN ELECTRO MECHANIC Primary Care Provider [phone] Aydee Burton APRN ELECTRO MECHANIC Unavailable [phone] Louisa Hood BEATER AND PULPER FEEDER ELECTRO MECHANIC Unavailable [phone] Se Levy HAIRSPRING VIBRATOR Unavailable Unavailable Clari Ruiz [facility] Unavailable Angel Hannah MD Unavailable Lesly Celaya MD Unavailable Tawana Patel MA Unavailable Unavailable Ramses Mcpherson MD Unavailable [phone] Obdulio Barrera MD Unavailable [phone] Mago Swift COMPUTER GRAPHIC DESIGNER Unavailable Reason for Referral Medication Prior Authorization - Closed Specialty Diagnoses / Procedures Referred By Contact Refer red To Contact Diagnoses Wheezing Pulmonary air trapping Aydee Burton APRN ELECTRO MECHANIC [address] [place] [address] Referral ID Status Reason Start Date Expiration Date Visits Requ ested Visits Authorized [id number] Closed 1 1 onsultation (Priority: 1-2 Weeks) - Closed Specialty Diagnoses / Procedures Referred By Contact Refer red To Contact Pulmonary Disease Diagnoses Cough Wheezing Pulmonary air trapping Aydee Burton [facility] BEATER AND PULPER FEEDER ELECTRO MECHANIC [place] [address] [address] [place] [address] Phone: Referral ID Status Reason Start Date Expiration Date Visits Requ ested Visits Authorized [id number] Closed 01/19/2022 01/19/2023 1 1 V Testing (Routine) - Closed Specialty Diagnoses / Procedures Referred By Contact Refer red To Contact Diagnoses Chest pain, unspecified type Wheezing Pulmonary air trapping Aydee Burton APRN Procedures Leadless low emission automobile designer 8 to 14 Days ZZHC EXT ECG > 48HR TO 21 DAY RCRD W/CONECT INTL RCRD ZZC EXT ECG > 48HR TO 21 DAY REVIEW AND INTERPRETATN PA EXT ECG > 48HR TO 21 DAY RCRD W/CONECT INTL RCRD ELECTRO MECHANIC PA EXT ECG > 48HR TO 21 DAY REVIEW AND INTERPRETATN HC EXT ECG > 48HR TO 21 DAY RCRD W/CONECT INTL RCRD [address] [place] [address] Referral ID Status Reason Start Date Expiration Date Visits Requ ested Visits Authorized [id number] Closed 01/19/2022 01/19/2023 1 1 GRATION ASSOCIATE Reason for Visit Reason Comments ER F/U Encounter Details Date Type Department Care Team Description 01/19/2022 Office Visit [facility] Aydee Burton (Melody galdamez Dx); Clinic PutnamNiall Mendez BEATER AND PULPER FEEDER ELECTRO MECHANIC Chest pain, unspecified type; [address] [facility] [address] [place]; [address] Pulmonary air trapping; [place], [place] [address] Shortness of breath [phone] Social History Tobacco Use Types Packs/Day Years [...] How often do you attend lutheran or restorationism services? Never 08/05/2021 Do you [...] at Date Recorded Female 11/09/2021 7:53 PM IMMIGRATION ASSOCIATE COVID-19 Exposure Response Date Recorded In the last month, have you been in contact with No / Unsure 01/31/2022 7:56 AM CDT someone who was confirmed or suspected to have Coronavirus / COVID-19? documented as of this encounter Last Filed Vital Signs Vital Sign Reading Time Taken Comments Blood Pressure 116/76 01/19/2022 11:44 AM IMMIGRATION ASSOCIATE Pulse 120 01/19/2022 11:44 AM IMMIGRATION ASSOCIATE Temperature 36.6 ??C (97.9 ??F) 01/19/2022 11:44 AM IMMIGRATION ASSOCIATE Respiratory Rate - - Oxygen Saturation 95% 01/19/2022 11:44 AM IMMIGRATION ASSOCIATE Inhaled Oxygen Concentration - - Weight 93.9 kg (207 lb) 01/19/2022 11:44 AM IMMIGRATION ASSOCIATE Height - - Body Mass Index 32.42 01/14/2022 1:07 PM IMMIGRATION ASSOCIATE documented in this encounter Patient Instructions Patient InstructionsAydee Burton, ELADIO ELECTRO MECHANIC - 01/19/2022 11:50 AM IMMIGRATION ASSOCIATE Images from the original note were not included. Patient Education COPD: Wheezing and Chest Tightness When you have COPD, wheezing, shortness of breath, and chest tightness are common symptoms. Wheezingis a whistling or squeaking sound when you breathe in or out. Chest tightness may feel like it is hard to take a deep breath or it's painful to breathe. It can cause a feeling of shortness of breath. How does COPD cause wheezing and chest tightness? COPD is a condition that keeps your lungs from working as they should. The lungs??? job is to get air in and out of the body. Inside the lungs, air moves through tubes called airways. In healthy airways, air moves in and out easily. With COPD, lungs and airways become damaged. This damage causes the lining of airways to swell and become clogged with mucus. The airways can also collapse. Then air doesnot move in and out of the body normally. This can lead to wheezing and chest tightness. COPD is a term for two main conditions. These are chronic bronchitis and emphysema. In both of theseconditions, the airways and lungs become damaged. The damage is usually due to breathing in irritants over a long period of time. The main irritant that causes COPD is cigarette smoke. Other irritants are pollution, dust, fumes, and chemicals. With chronic bronchitis, the damaged airways make more mucus than normal. Mucus is a thick, sticky fluid. It traps smoke and other harmful irritants breathed in. This helps protect the airways. But toomuch mucus can make the airways narrow. Bronchitis can also cause the airways to swell. The muscles that surround the airways may tighten. These problems cause the airways to narrow even more. This means less air moves in and out of the lungs. Air contains oxygen. This is a gas the body needs to breathe. In healthy lungs, air moves to the airsacs (alveoli). These are bunches of round sacs at the end of the airways. Oxygen passes from the air sacs into the bloodstream. Then it is carried to the rest of the body. As the body uses oxygen, a gas called carbon dioxide is left over. This gas goes back to the air sacs. Then it is breathed out ofthe body. This process is called gas exchange. With emphysema, gas exchange does not work well. This is because the air sacs - become damaged. The airways are also damaged. They are not as stretchy as they should be. They become floppy and may collapse when you breathe out. This traps stale air in the air sacs. Then not as much fresh air can be breathed in. This makes it harder to take a deep breath. Treatment for wheezing and chest tightness There is no cure for COPD. But certain treatments can help wheezing and chest tightness: ?? Bronchodilators. These medicines help open the airways to improve breathing. ?? Combination medicines. These include a bronchodilator and a steroid. Steroids help keep the lining of the airways from getting swollen or inflamed. This helps reduce swelling and mucus production. ?? Antibiotics. A respiratory infection can make COPD symptoms worse. Antibiotics are medicines thathelp treat infections. ?? Pulmonary rehab (rehabilitation). This program teaches ways to ease COPD symptoms. It includes tips on exercising, correct posture, how to conserve energy, and eating right to improve breathing. ?? Oxygen therapy. When the level of oxygen in the blood is too low, your healthcare provider may prescribe oxygen. Or, when lungs can???t get enough oxygen to the blood, you may get extra oxygen. Oxygen can be used some of the time or most of the time. ?? Surgery. This may be done for severe symptoms when other treatments have not helped. Surgery removes the most damaged parts of the lungs. Your healthcare provider will work with you to decide on the best treatment for you. Self-care tips for wheezing and chest tightness There are ways you can get relief from your COPD symptoms: ?? Stop smoking. Cigarette smoking is the main cause of COPD. Stopping smoking is the most importantstep you can take to treat COPD. If you need help stopping smoking, talk with your healthcare provider. ?? Stay away from secondhand smoke and other irritants. Try to stay away from smoke, chemicals, fumes, and dust. Don???t let anyone smoke in your home. Stay indoors on smoggy days. ?? Prevent lung infections. Having COPD increases your risk for flu and pneumonia. Ask your healthcare provider about the flu and pneumonia vaccines. Take steps to prevent colds and other lung infections. ?? Practice correct handwashing. Wash your hands often with soap and water. Use hand core cleaner when you can???t wash your hands. Stay away from crowds during cold and flu season. ?? Do breathing exercises. Learn how to do belly breathing and pursed lip breathing. These two exercises can help you breathe better. Try to do each exercise for 5 to 10 minutes every day. ?? Don???t be afraid to be active. Being active may make you short of breath. Even so, it is good for your lungs. Exercise can strengthen the muscles that help you breathe. Ask your healthcare providerabout safe exercises for you. ?? Eat small meals throughout the day. Your stomach won???t get as full. Then your lungs will have more room to expand. ?? Drink plenty of water. This can make mucus thinner and easier to cough up. Ask your healthcare provider how much water you should drink. When to call your healthcare provider Call your healthcare provider right away if you have any of these problems: ?? Fever of 100.4??F (38??C) or higher, or as directed by your healthcare provider ?? Symptoms that don???t get better, or get worse ?? New symptoms WangYou last reviewed this educational content on 02/11/2019 ?? [id number] The [employer]. All rights reserved. This information is not intended as a substitute for professional medical care. Always follow your healthcare professional's instructions. GRATION ASSOCIATE documented in this encounter Progress Notes Aydee Burton APRN CNP - 01/19/2022 11:50 AM CST Images from the original note were not included. Assessment & Plan Cough Chest pain, unspecified type Wheezing Pulmonary air trapping Shortness of breath EKG stable. Reassuring exam no higher level of care felt to be needed. Continued symptoms; Stable still on steroids. Pulm SEAN. Albuterol nebulizer and start Symbicort. Red flag symptoms discussed and if these occur present to the emergency room or call 911. Marta verbalizes understanding of plan of care and is in agreement. - Adult Pulmonary Medicine Referral - EKG 12-lead complete w/read - Clinics - Leadless low emission automobile designer 8 to 14 Days - budesonide-formoterol (SYMBICORT) 160-4.5 MCG/ACT Inhaler Dispense: 10.2 g; Refill: 11 - albuterol (PROVENTIL) (2.5 MG/3ML) 0.083% neb solution Dispense: 90 mL; Refill: 5 - Nebulizer and Supplies Order for DME - ONLY FOR DME Return in about 5 days (around 01/24/2022) for Recheck. Aydee Burton APRN CNP [facility] Arturo Lozano is a 41 year old who presents for the following health issues HPI ED/UC Followup: Facility: [facility] Date of visit: 01/14/2022 Reason for visit: Chronic cough Shortness of Breath Current Status: still has cough and chest pain. Taking steroids. Cough feels sharp and tight IMPRESSION: 01/14/22 1. Mild air trapping often associated with small vessel or small airways disease. Mild fibroatelectasis without effusion or definite infiltrate. 2. No pulmonary embolus, aortic aneurysm or dissection. IMPRESSION: 11/16/21 Normal spirometry, diffusing capacity and lung volumes. Echo and stress test 11/04/21 Procedure Complete Echo Adult. Interpretation Summary Right ventricular systolic pressure could not be approximated due to inadequate tricuspid regurgitation. IVC diameter <2.1 cm collapsing >50% with sniff suggests a normal RA pressure of 3 mmHg. Normal transthoracic echocardiogram. Procedure Treadmill stress test. Interpretation Summary Pt developed 7/10 chest pain during exercise. No arrhythmia noted. There were no ST segment changes observed with stress. This test indicates a low probability of severe occlusive coronary artery disease. Review of Systems Constitutional, HEENT, cardiovascular, pulmonary, GI, , musculoskeletal, neuro, skin, endocrine and psych systems are negative, except as otherwise noted in the HPI. Objective BP 116/76 Pulse 120 Temp 97.9 ??F (36.6 ??C) Wt 93.9 kg (207 lb) LMP 12/11/2021 (Exact Date) SpO2 95% BMI 32.42 kg/m?? Body mass index is 32.42 kg/m??. Physical Exam GENERAL: healthy, alert and [...] normal PSYCH: mentation appears normal, affect normal/bright documented in this encounter Plan of Treatment Upcoming Encounters Date Type Specialty Care Team Description 09/26/2022 Appointment Speech Therapy Obdulio Barrera MD [address] [facility] [address] [place], [place] [phone] Anabel Chew, 411 DIRECTORY ASSISTANCE OPERATOR [place] [id number] [facility] [address] [place], [place] [address] 09/27/2022 Therapy Visit Physical Therapy Luisana Watkins, PT [address] [place] [address] 09/29/2022 Virtual Visit Pain & Palliative Marilia Deluna Care PhD [address] [place], [place] [address] 09/30/2022 Office Visit Family Practice Aydee Burton APRN ELECTRO MECHANIC [address] [place] [address] 10/03/2022 Therapy Visit Physical Therapy Una Reardon, PT [address] [place] [address] 10/10/2022 Hospital Encounter Surgery Lesly Celaya MD [address] [place] [address] 10/10/2022 Office Visit Surgery Lesly Celaya MD [address] [place] [address] Ninoska Flowers PA-C [address] [place] [address] 10/10/2022 Surgery Surgery Lesly Celaya, EXCISION, MASSES - MD back, abdomen, [address] [place] [address] 10/11/2022 Virtual Visit Clari Su, [place] [phone] [address] [address] 10/14/2022 Appointment Speech Therapy Anabel Chew, 411 DIRECTORY ASSISTANCE OPERATOR [facility] [address] [facility] [address] [place] [address] 10/21/2022 Office Visit Pulmonology Obdulio Barrera MD [address] [facility] [address] [place] [address] 10/25/2022 PRE VISIT Charo Carter MD Previsit [address] [place], [place] [address] 10/25/2022 Office Visit Charo Carter MD [address] [place] [address] 10/25/2022 Office Visit ENT Provider, Jeannette 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 Clinical Specialist 10/28/2022 Appointment Speech Therapy Anabel Chew, CELINE [address] [address] 11/17/2022 Appointment Speech Therapy Anabel Chew SLP [address] [phone] 12/23/2022 Office Visit Neurology Colby Yeung MD [address] [place] [address] Scheduled Procedures Name Priority Associated Diagnoses Date/Time EXCISION, MASS, TORSO Lipoma of skin and subcuta neous 10/10/2022 7:30 AM IMMIGRATION ASSOCIATE tissue Scheduled Referrals Name Type Priority Associated Diagnoses Order S chedule Adult Pulmonary Referral Priority: 1-2 Cough Expected: Medicine Referral Weeks Wheezing 01/19/2022 Pulmonary air (Approximate), trapping Expires: 01/19/2023 documented as of this encounter Procedures Procedure Name Priority Date/Time Associated Diagnosis Comme nts EKG 12-LEAD COMPLETE Routine 01/19/2022 Chest pain, unspecif ied Results for this W/READ - CLINICS type procedure a re in the results section . documented in this encounter Results LEADLESS MINERALOGY TEACHER APPLICATION AND INTERP 8 TO 14 DAYS (01/20/2022 2:14 PM IMMIGRATION ASSOCIATE) Anatomical Region Laterality Modality Other Specimen (Source) Anatomical Location Collection Method / Collectio n Time Received Time / Laterality Volume Narrative This result has an attachment that is no t available. Aydee Burton APRN, CNP [facility] EKG 12-lead complete w/read - Clinics (01/19/2022) Narrative This result has an attachment that is no t available. Aydee Vanessa Burton BEATER AND PULPER FEEDER ELECTRO MECHANIC ECG ORDERABLES documented in this encounter Visit Diagnoses Diagnosis Cough - Primary Chest pain, unspecified type Wheezing Pulmonary air trapping Shortness of breath Lipoma of skin and subcutaneous tissue Lipoma of other skin and subcutaneous ti ssue documented in this encounter Additional Health Concerns Assessment Noted Time PHQ-9 Depression Total Score: 22 06/28/2021 7:03 AM CD T documented as of this encounter Care Teams Exhibit Builder Relationship Specialty Start Date End Date Aydee Burton, PCP - General Nurse Practitioner - 05/17/21 BEATER AND PULPER FEEDER ELECTRO MECHANIC Family [address] [place] [phone] Aydee Burton, Assigned PCP 04/28/21 BEATER AND PULPER FEEDER ELECTRO MECHANIC [address] [place] [phone] Louisa Hood, Assigned Neuroscience 07/11/21 BEATER AND PULPER FEEDER ELECTRO MECHANIC Provider [address] [place] [phone] Se Levy, Lead Quality Assurance Tech 08/05/21 05/12/22 Clari Francois Pharmacist Pharmacist 08/06/21 06/07/22 [facility] [address] [place], [place] [phone] [place], Assigned Sleep 08/01/21 Angel Turcios Provider [address] [place], [place] [phone] Lesly Celaya MD Assigned Surgical 09/05/21 [address] Provider [place], [place] [phone] Tawana Patel MA Pending Sale To [facility] 09/30/21 Worker Ramses Mcpherson Assigned OBGYN 11/07/21 MD Onesimo Provider [address] [place], [place] [phone] Obdulio Barrera MD Critical Care 01/24/[address] [address] Mago Swift, [facility] Lead Quality Assurance Tech Senior Technical Business Analyst - 08/05/21 Clinical documented as of this encounter
--- OUTSIDE RECORDS SUMMARY | 2022-09-21 04:11 | XMS_ITS | Encounter Summary ---
:1980 Author Organization [facility] Address [address] [place] [address] Care Team Providers Name Role Phone Aydee Burton [employer]WRITING INTERNSH[employer] CHANNEL OPENER Primary Care Provider [phone] Aydee Burton [employer]ING [employer] CHANNEL OPENER Unavailable [phone] Louisa Hood [employer] CHANNEL OPENER Unavailable [phone] Se Levy POOL HAND Unavailable Unavailable Clari Ruiz [facility] Unavailable Angel Hannah MD Unavailable Lesly Celaya MD Unavailable Tawana Patel MA Unavailable Unavailable Ramses Mcpherson MD Unavailable [phone] Mago Swift PLANT QUALITY MANAGER Unavailable Reason for Visit Reason Comments Cough Encounter Details Date Type Department Care Team Description 01/21/2022 [facility] Raphael Myers MD Cough; [facility] Emergency Dep t [facility] PHYSIC[facility] Chest pain, unspecified type [address] [place], [place] [address] [facility] [address] [address] [place] [address] [place] [address] (Wo rk) Social History Tobacco Use Types [...] How often do you attend gnosticism or presybeterian services? Never 08/05/2021 Do you [...] at Date Recorded Female 11/09/2021 7:53 PM [employer] COVID-19 Exposure Response Date Recorded In the last month, have you been in contact with No / Unsure 01/20/2022 1:55 PM [employer] someone who was confirmed or suspected to have Coronavirus / COVID-19? documented as of this encounter Last Filed Vital Signs Vital Sign Reading Time Taken Comments Blood Pressure 112/66 01/21/2022 11:25 AM [employer] Pulse 101 01/21/2022 9:09 AM [employer] Temperature 36.2 ??C (97.2 ??F) 01/21/2022 9:09 AM [employer] Respiratory Rate 14 01/21/2022 9:09 AM [employer] Oxygen Saturation 99% 01/21/2022 11:25 AM [employer] Inhaled Oxygen Concentration - - Weight 94.3 kg (207 lb 14.3 oz) 01/21/2022 9:09 AM [employer] Height - - Body Mass Index 32.56 01/14/2022 1:07 PM [employer] documented in this encounter Discharge Instructions AttachmentsThe following attachments cannot be sent through Care Everywhere. Cough, Chronic, Uncertain Cause (Adult) (Serbian)documented in this encounter Medications at Time of [...] 2 tablets - 120mg total QUEtiapine (SEROQUEL) Take 100 mg by mouth 30 tablet 2 02/2022 100 MG tablet as needed QUEtiapine (SEROQUEL) Take 200 mg by mouth 0 200 MG tablet At Bedtime vitamin D3 Take 1 tablet by 0 (CHOLECALCIFEROL) 50 mouth daily mcg (2000 units) tablet albuterol (PROAIR Inhale 2 [...] daily tablet benzonatate (TESSALON) Take 1 capsule (100 15 [...] laterality ondansetron Take 1 tablet (4 mg) 12 tablet 0 01/14/202211/2021 (ZOFRAN-ODT) 4 MG ODT by mouth every 8 tabIndications: S/P hours as needed for laparoscopic nausea hysterectomy predniSONE (DELTASONE) Take two tablets (= 10 tablet 0 02/202201/24/2022 20 MG tablet 40mg) each day for 5 (five) days documented as of this encounter Progress Notes Nancy Elder RN - 01/21/2022 10:18 AM CST Pt reports improvement in chest tightness after breathing treatment. Cough persists [employer] documented in this encounter ED Notes Mary Singh RN - 01/21/2022 9:07 AM CST Pt presents to ED for evaluation of chronic persistent cough. Pt uses Symbicort and Albuterol; the Symbicort provides some relief but wears off quickly. Pt also has a continuous residential monitor on. Thecough is dry, pt denies fevers. Notes pain in her chest from coughing so much, occasional nausea. [employer] Raphael Myers MD - 01/21/2022 9:04 AM CST Emergency Department Attending Supervision Note 01/21/2022 9:33 AM I evaluated this patient in conjunction with Jessica Crawford PA-C Briefly, the patient presented with worsening cough, chest pain, and nausea. She states she had the onset of cough 1 month ago post-op hysterectomy. She was seen in the ED 01/14 and had negative full pulmonary embolism evaluation. She states since being seen in ED she has been using Symbicort and albuterol, but states she does not have long lasting relief of symptoms. She states she also has associatedchest wall pain secondary to cough and nausea. Patient denies fevers. On my exam, BP 112/66 Pulse 101 Temp 97.2 ??F (36.2 ??C) (Temporal) Resp 14 Wt 94.3 kg (207 lb 14.3 oz) LMP 12/11/2021 (Exact Date) SpO2 99% BMI 32.56 kg/m?? General: Alert, appears well-developed and well-nourished. Cooperative. In moderate distress, persistent dry cough. HEENT: Head: Atraumatic Ears: External ears are normal Mouth/Throat: Oropharynx is without erythema or exudate and mucous membranes are moist. Eyes: Conjunctivae normal and EOM are normal. No scleral icterus. CV: Normal rate, regular rhythm, normal heart sounds and radial pulses are 2+ and symmetric. No murmur. Resp: Breath sounds are clear bilaterally, no wheezing. Non-labored, no retractions or accessory muscle use GI: Abdomen is soft, no distension, no tenderness. No rebound or guarding. No CVA tenderness bilaterally MS: Normal range of motion. No edema. Normal strength in all 4 extremities. Back atraumatic. No midline cervical, thoracic, or lumbar tenderness Skin: Warm and dry. No rash or lesions noted. Neuro: Alert. Normal strength. GCS: 15 Psych: Normal mood and affect. Results: Labs Ordered and Resulted from Time of ED Arrival to Time of ED Departure CBC WITH PLATELETS AND DIFFERENTIAL - Abnormal Result Value WBC Count 10.2 RBC Count 3.98 Hemoglobin 12.1 Hematocrit 38.6 MCV 97 MCH 30.4 MCHC 31.3 (*) RDW 12.8 Platelet Count 350 % Neutrophils 63 % Lymphocytes 24 % Monocytes 9 % Eosinophils 2 % Basophils 1 % Immature Granulocytes 1 NRBCs per 100 WBC 0 Absolute Neutrophils 6.5 Absolute Lymphocytes 2.4 Absolute Monocytes 0.9 Absolute Eosinophils 0.2 Absolute Basophils 0.1 Absolute Immature Granulocytes 0.1 Absolute NRBCs 0.0 TROPONIN I - Normal Troponin I High Sensitivity 3 BASIC METABOLIC PANEL - Normal Sodium 136 Potassium 4.2 Chloride 101 Carbon Dioxide (CO2) 30 Anion Gap 5 Urea Nitrogen 15 Creatinine 0.76 Calcium 8.9 Glucose 92 GFR Estimate >90 ECG: ECG taken at 0941, ECG read at 0943 Normal sinus rhythm No significant change as compared to prior ECG dated 01/19/22 Rate 90 bpm. SD interval 148. QRS duration 80. QT/QTc 344/420. P-R-T axes 31 31 65. XR Chest 2 Views Final Result IMPRESSION: Implanted device over the left chest. Clear lungs. No pleural effusion or pneumothorax.. Normal heart size. MITZY ALANIS MD Reading per radiology. MDM: Patient is a 41-year-old female who presents with ongoing cough since a recent hysterectomy in mid December. Patient was evaluated in the emergency department approximately 1 week ago for similar chronic cough since prior hysterectomy. She had a unremarkable work-up performed at that time including CTimaging of the chest which was negative for acute pulmonary embolism. Patient continues to have ongoing dry cough. I do not hear any wheezing and have lower concern for reactive airway disease. Of noteshe did have a course of steroids which did not improve her symptoms last week. I would not do additional steroids at this time is lower concern for reactive airway process. Chest x-ray clear for spontaneous pneumothorax or focal infiltrate. EKG was nonischemic and troponin within normal range and lowconcern for ACS. As patient had recent CT imaging of the chest I do not think that there is new pulmonary embolism and would not work the patient up again for a PE. Ultimately I do think she has a chronic cough of unclear etiology. Patient does have an appointment with pulmonology in the next 2 weeks and should follow closely with this appointment. We will plan to continue with [id number] resources and to prescribe Tessalon Perles and recommended honey for this ongoing cough. Return precautions for development of fever, shortness of breath, or difficulty breathing. After all questions answered, discharged home. Diagnosis ICD-10-CM 1. Cough R05.9 2. Chest pain, unspecified type R07.9 Scribe Disclosure: I, Kamille Nye, am serving as a scribe at 10:11 AM on 01/21/2022 to document services personally performed by Raphael Myers MD based on my observations and the provider's statements to me. Raphael Myers MD White, Scott, MD 01/21/22 1207 [employer] Jessica Crawford PA-C - 01/21/2022 9:04 AM CST History Chief Complaint: Cough HPI Marta Hill is a 41 year old female who presents with cough. Patient reports he has had a cough for a month. She reports it began approximately a week after having a hysterectomy completed. She was evaluated in this department 1 week ago for an elevated D-dimer which was found during an office visit. She had a CT PE study that was negative for PE at that time. CT showed small airway disease. Patient reports she has had worsening of her cough over the last week, and especially over the last few days. She also reports chest pain. She reports her chest pain is worse with cough and deep breaths.She has a Zio patch in place. She had a Symbicort and albuterol inhaler prescribed recently. She called the nurse line last night for worsening of her cough symptoms, she was instructed to attempt to Symbicort inhaler. She reports she took 2 puffs of her Symbicort inhaler last night, with some results. She has attempted albuterol this morning with no results. Last dose at 6:30 AM. She also reports nausea since last night. She has been able to tolerate fluids. No vomiting. She denies fevers, chills, abdominal pain, headaches, numbness, tingling, or visual disturbance. ROS: Review of Systems Constitutional: Negative for chills and fever. HENT: Negative for ear pain, rhinorrhea and sore throat. Eyes: Negative for visual disturbance. Respiratory: Positive for cough and shortness of breath. Cardiovascular: Positive for chest pain. Negative for palpitations and leg swelling. Gastrointestinal: Positive for nausea. Negative for vomiting. Genitourinary: Negative for hematuria. Musculoskeletal: Negative for back pain. Neurological: Negative for syncope and numbness. All other systems reviewed and are negative. Allergies: Amoxicillin Medications: PROVENTIL SYMBICORT WELLBUTRIN CYMBALTA NEURONTIN LAMICTAL ROBAXIN ZOFRAN DELTASONE SEROQUEL Past Medical History: Past Medical History: Diagnosis Date ??? Depressive disorder as teen and on ??? Hypertension 2001 ??? Sleep apnea ??? Uncomplicated asthma not sure Patient Active Problem List Diagnosis ??? PTSD [...] (shortness of breath) ??? Chest tightness Past Surgical History: Past Surgical History: Procedure Laterality Date ??? BREAST SURGERY Breast Augmuntation ??? COSMETIC SURGERY not sure breast augmentation ??? ENT SURGERY teen years sinus for bloody noses ??? EXCISE MASS BACK N/A 10/12/2021 Procedure: EXCISION MULTIPLE LIPOMAS - bilateral legs, arms and trunk; Surgeon: Lesly Celaya MD; Location: [facility] OR ??? GENITOURINARY SURGERY Tubal ligation and ablasion ??? ARCHITECTURAL DESIGN LECTURER SURGERY not sure tubal ligation and ablasion ? ? HEAD & NECK SURGERY Sinus ??? LAPAROSCOPIC HYSTERECTOMY TOTAL Bilateral 12/28/2021 Procedure: TOTAL LAPAROSCOPIC HYSTERECTOMY WITH BILATERAL SALPINGECTOMY; Surgeon: Ramses Mcpherson MD; Location: [facility] OR ??? ORTHOPEDIC SURGERY 2020 radial head fracture 3 screws, left elbow ??? RADIOFREQUENCY ABLATION, UTERINE 2018 Family History: family history includes Anxiety Disorder in her daughter, daughter, daughter, father, mother, and sister; Asthma in her daughter, father, mother, sister, son, and son; Cerebrovascular Disease in her father and maternal grandmother; Depression in her daughter, daughter, father, mother, paternal grandfather, and sister; Diabetes in her paternal grandfather; Hypertension in her father; Substance Abuse in her father, mother, and sister. Social History: reports that she has never smoked. She has never used smokeless tobacco. She reports previous alcohol use. She reports that she does not use drugs. PCP: Aydee Burton Physical Exam Patient Vitals for the past 24 hrs: BP Temp Temp src Pulse Resp SpO2 Weight 01/21/22 1125 112/66 -- -- -- -- 99 % -- 01/21/22 0909 139/85 97.2 ??F (36.2 ??C) Temporal 101 14 99 % 94.3 kg (207 lb 14.3 oz) Physical Exam Vitals: Reviewed, as above. Notable for tachycardia. General: Alert and oriented, in mild distress. Resting on bed. Skin: Warm and well-perfused. No rashes, lesions, or erythema. HEENT: Head: Normocephalic, atraumatic. Facial features symmetric. Eyes: Conjunctiva pink, sclera white. EOMs grossly intact. Mouth and throat: Lips are moist with no chapping, lesions, or edema, Buccal mucosa is pink and moist without lesions. Oropharyngeal mucosa is pink and moist with no erythema, edema, or exudate. Neck: Supple with no lymphadenopathy. Full ROM. Pulmonary: Chest wall expansion symmetric. Coarse, dry cough. No wheezes, rhonchi, or rales on auscultation bilaterally. Cardiovascular: Heart RRR with no murmurs, rubs, or gallops. 2+ radial and tibialis posterior pulsesbilaterally. No peripheral edema. Abdominal: No hernias, lesions, striae, or distension. Bowel sounds present and physiologic. Abdomenis soft and nontender to light and deep palpation in all 4 quadrants with no guarding or rebound. Nomasses or organomegaly. Musculoskeletal: Moves all extremities spontaneously. Psych: Affect appropriate. Answers questions appropriately. Patient appears calm. Emergency Department Course ECG: ECG taken at 0941, ECG read at 0943 Normal sinus rhythm No significant change as compared to prior ECG dated 01/19/22 Rate 90 bpm. SD interval 148. QRS duration 80. QT/QTc 344/420. P-R-T axes 31 31 65. Laboratory: Labs Ordered and Resulted from Time of ED Arrival to Time of ED Departure CBC WITH PLATELETS AND DIFFERENTIAL - Abnormal Result Value WBC Count 10.2 RBC Count 3.98 Hemoglobin 12.1 Hematocrit 38.6 MCV 97 MCH 30.4 MCHC 31.3 (*) RDW 12.8 Platelet Count 350 % Neutrophils 63 % Lymphocytes 24 % Monocytes 9 % Eosinophils 2 % Basophils 1 % Immature Granulocytes 1 NRBCs per 100 WBC 0 Absolute Neutrophils 6.5 Absolute Lymphocytes 2.4 Absolute Monocytes 0.9 Absolute Eosinophils 0.2 Absolute Basophils 0.1 Absolute Immature Granulocytes 0.1 Absolute NRBCs 0.0 TROPONIN I - Normal Troponin I High Sensitivity 3 BASIC METABOLIC PANEL - Normal Sodium 136 Potassium 4.2 Chloride 101 Carbon Dioxide (CO2) 30 Anion Gap 5 Urea Nitrogen 15 Creatinine 0.76 Calcium 8.9 Glucose 92 GFR Estimate >90 Procedures Emergency Department Course: Reviewed: I reviewed nursing notes, vitals and past medical history Assessments: 924 I obtained history and examined the patient as noted above. 1140 I rechecked the patient and explained findings. Interventions: Medications ipratropium - albuterol 0.5 mg/2.5 mg/3 mL (DUONEB) neb solution 6 mL (6 mLs Nebulization Given 01/21/22 0953) Disposition: The patient was discharged to home. Impression & Plan Medical Decision Making: Marta is a 41-year-old female presents for evaluation of cough. Please see HPI and physical exam for full details. Differential diagnosis included ACS, PE, GERD, asthma, viral URI, bronchitis, pneumothorax, and others. Patient was in his department 1 week ago, and she had a negative CT PE study. Atthis point, I do not believe that reevaluation for this pathology is indicated, as her symptoms havenot changed in character. Patient reports chest pain that is worse with cough and deep breaths, and she has a Zio patch in place. Troponin was 3, and according to [facility] pathway for high-sensitivity troponin, patient can be ruled out for myocardial injury. Remainder laboratory evaluation was unremarkable. Chest x-ray was negative for acute pathology or pneumothorax. Patient symptoms improved slightly with a DuoNeb. She states she has a nebulizer, which just arrived at the pharmacy today, which she plans to pickle maker. She also has an appointment with the financial reporting director coming up on the .Advised her to keep this appointment. Provided her with a prescription for Tessalon Perles, and I advised her that honey can also ease her symptoms. Patient exposed understanding of this. Return precautions were discussed in detail, including fevers, worsening symptoms or change in symptoms, hemoptysis, and worsening dizziness. Patient was discharged home in stable condition. Critical Care time: was 0 minutes for this patient excluding procedures. Diagnosis: ICD-10-CM 1. Cough R05.9 2. Chest pain, unspecified type R07.9 Discharge Medications: New Prescriptions BENZONATATE (TESSALON) 100 MG CAPSULE Take 1 capsule (100 mg) by mouth 3 times daily as needed for cough Scribe Disclosure: IKamille, am serving as a scribe at 10:11 AM on 01/21/2022 to document services personally performed by Jessica Crawford PA-C based on my observations and the provider's statements to me. Jessica Crawford PA-C 01/21/22 1157 [employer] Associated attestation - Raphael Myers MD - 01/21/2022 12:09 PM [employer] Physician Attestation IRaphael, saw and evaluated Marta Hill as part of a shared [employer]ING [employer]HIP/PA visit. I personally reviewed the vital signs, medications, labs, and imaging. I personally performed the substantive portion of the medical decision making for this visit - please see the CARROLL's documentation for full details. Saavedra management decisions made by me and carried out under my direction: Please see my separate attestation note Raphael Myers Date of Service (when I saw the patient): 01/21/22 documented in this encounter Plan of Treatment Upcoming Encounters Date Type Specialty Care Team Description 09/26/2022 Appointment Speech Therapy Obdulio Barrera MD [address] [place] [address] [phone] Anabel Chew, STONE FINISHER [facility] [address] [facility] [address] [place], [place] [address] 09/27/2022 Therapy Visit Physical Therapy Luisana Watkins, PT [address] [place] [address] 09/29/2022 Virtual Visit Pain & Palliative Marilia Deluna, Care PhD [address] [place] [address] 09/30/2022 Office Visit Family Practice Aydee Burton, UND[employer]ING [employer] CHANNEL OPENER [address] [place] [id number] 10/03/2022 Therapy Visit Physical Therapy Una Reardon, PT [address] [place] [address] 10/10/2022 Hospital Encounter Surgery Lesly Celaya MD [address] [place], [place] [id number] 10/10/2022 Office Visit Surgery Lesly Celaya MD [address] [place], [place] [id number] Ninoska Flowers PA-C [address] [place] [address] 10/10/2022 Surgery Surgery Lesly Celaya, EXCISION, MASSES - MD back, abdomen, [address] right lower BL extremity [place], [place] [phone] 10/11/2022 Virtual Visit Clari Su, [facility] [address] [place] [address] [address] [place] [address] 10/14/2022 Appointment Speech Therapy Anabel Chew, STONE FINISHER [address] [address] 10/21/2022 Office Visit Pulmonology Obdulio Barrera MD [address] [phone] 10/25/2022 PRE VISIT ENT Charo Burton MD Previsit [address] [place], [place] [phone] 10/25/2022 Office Visit ENT Charo Burton MD [address] [place], [place] [address] 10/25/2022 Office Visit ENT Provider, 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 Blast Furnace Tender 10/28/2022 Appointment Speech Therapy Anabel Chew, STONE FINISHER [address] [address] 11/17/2022 Appointment Speech Therapy Anaebl Chew, STONE FINISHER [address] [address] 12/23/2022 Office Visit Neurology Colby Yeung MD [address] [id number] Scheduled Procedures Name Priority Associated Diagnoses Date/Time EXCISION, MASS, TORSO Lipoma of skin and subcuta neous 10/10/2022 7:30 AM [employer] tissue documented as of this encounter Procedures Procedure Name Priority Date/Time Associated Comments Diagnosis XR CHEST 2 VIEWS STAT 01/21/2022 11:10 Results for this AM [employer] procedure are i n the results section. CBC WITH PLATELETS STAT 01/21/2022 9:52 AM Res ults for this AND DIFFERENTIAL [employer] SCI[employer] procedure a re in the results section. CBC WITH PLATELETS & STAT 01/21/2022 9:52 AM R esults for this DIFFERENTIAL [employer] procedure are i n the results section. TROPONIN I STAT 01/21/2022 9:52 AM Results f or this [employer] procedure are i n the results section. BASIC METABOLIC PANEL STAT 01/21/2022 9:52 AM Results for this [employer] procedure are i n the results section. EKG 12-LEAD, TRACING STAT 01/21/2022 9:41 AM R esults for this ONLY [employer] procedure are i n the results section. documented in this encounter Results XR Chest 2 Views (01/21/2022 11:10 AM PROF[employer]) Anatomical Region Laterality Modality Chest Computed Radiography Specimen (Source) Anatomical Location Collection Method / Collectio n Time Received Time / Laterality Volume Impressions 01/21/2022 11:22 AM [employer] IMPRESSION: Implanted device over the left chest. Clear lungs. No pleural effusion or pneumothorax.. Alanna l heart size. MITZY ALANIS MD Narrative 01/21/2022 11:22 AM PROF[employer] XR CHEST 2 VW 01/21/2022 11:10 AM HISTORY: cough, chest pain COMPARISON: Procedure Note Mitzy Alanis MD - 01/21/2022 XR CHEST 2 VW 01/21/2022 11:10 AM HISTORY: cough, chest pain COMPARISON: IMPRESSION: Implanted device over the le ft chest. Clear lungs. No pleural effusion or pneumothorax.. Alanna l heart size. MITZY ALANIS MD Jessica Crawford PA-C IMG DIAGNOSTIC IMAGING ORDER TIA (ABNORMAL) CBC with platelets and differential (01/21/2022 9:52 AM PROF[employer]) [facility] Method Time Signature WBC Count 10.2 4.0 - 01/21/2022 [facility] 11.0 10:06 AM [employer] 10e3/uL RBC Count 3.98 3.80 - 01/21/2022 [facility] 5.20 10:06 AM PROF[employer] 10e6/uL Hemoglobin 12.1 11.7 - 01/21/2022 [facility] 15.7 g/dL 10:06 AM PROF[employer]ENCE Hematocrit 38.6 35.0 - 01/21/2022 [facility] 47.0 % 10:06 AM PROF[employer]ENCE MCV 97 78 - 100 01/21/2022 [facility] fL 10:06 AM [employer] MCH 30.4 26.5 - 01/21/2022 [facility] 33.0 pg 10:06 AM PROF[employer] MCHC 31.3 (L) 31.5 - 01/21/2022 [facility] 36.5 g/dL 10:06 AM [employer] RDW 12.8 10.0 - 01/21/2022 [facility] 15.0 % 10:06 AM [employer] Platelet Count 350 150 - 450 01/21/2022 [facility] 10e3/uL 10:06 AM [employer] % Neutrophils 63 % 01/21/2022 [facility] 10:06 AM [employer] % Lymphocytes 24 % 01/21/2022 [facility] 10:06 AM [employer] % Monocytes 9 % 01/21/2022 [facility] 10:06 AM [employer] % Eosinophils 2 % 01/21/2022 [facility] 10:06 AM [employer] % Basophils 1 % 01/21/2022 [facility] 10:06 AM [employer] % Immature 1 % 01/21/2022 [facility] Granulocytes 10:06 AM [employer] NRBCs per 100 0 <1 /100 01/21/2022 [facility] WBC 10:06 AM [employer] Absolute 6.5 1.6 - 8.3 01/21/2022 [facility] Neutrophils 10e3/uL 10:06 AM [employer] Absolute 2.4 0.8 - 5.3 01/21/2022 [facility] Lymphocytes 10e3/uL 10:06 AM [employer] Absolute 0.9 0.0 - 1.3 01/21/2022 [facility] Monocytes 10e3/uL 10:06 AM [employer] Absolute 0.2 0.0 - 0.7 01/21/2022 [facility] Eosinophils 10e3/uL 10:06 AM [employer] Absolute 0.1 0.0 - 0.2 01/21/2022 [facility] Basophils 10e3/uL 10:06 AM [employer] Absolute 0.1 <=0.4 01/21/2022 [facility] Immature 10e3/uL 10:06 AM [employer] Granulocytes Absolute NRBCs 0.0 10e3/uL 01/21/2022 [facility] 10:06 AM [employer] Specimen Anatomical Collection Method / Collection Time Recei edil Time (Source) Location / Volume Laterality Blood STRUCTURE OF RIGHT Venipuncture / 01/21/2022 9:52 01/11 UPPER LIMB / Unknown AM [employer] 10:00 AM [employer] Unknown Jessica Crawford PA-C LAB - BLOOD ORDERABLES Performing Organization Address City/State/ZIP Code [place] [address] Care [facility] [address] Lab (1st floor, no room number) Basic metabolic panel (01/21/2022 9:52 AM PROFESSOR OF POULTRY SCIENCE) athologist Signature Sodium 136 133 - 144 01/21/2022 LABORATORY mmol/L 10:29 AM PROFESSOR OF POULTRY SCIENCE Potassium 4.2 3.4 - 5.3 01/21/2022 LABORATORY mmol/L 10:29 AM PROFESSOR OF POULTRY SCIENCE Chloride 101 94 - 109 01/21/2022 LABORATORY mmol/L 10:29 AM PROFESSOR OF POULTRY SCIENCE Carbon Dioxide 30 20 - 32 01/21/2022 LABORATORY (CO2) mmol/L 10:29 AM PROFESSOR OF POULTRY SCIENCE Anion Gap 5 3 - 14 01/21/2022 LABORATORY mmol/L 10:29 AM PROFESSOR OF POULTRY SCIENCE Urea Nitrogen 15 7 - 30 01/21/2022 LABORATORY mg/dL 10:29 AM PROFESSOR OF POULTRY SCIENCE Creatinine 0.76 0.52 - 01/21/2022 LABORATORY 1.04 mg/dL 10:29 AM PROFESSOR OF POULTRY SCIENCE Calcium 8.9 8.5 - 10.1 01/21/2022 LABORATORY mg/dL 10:29 AM PROFESSOR OF POULTRY SCIENCE Glucose 92 70 - 99 01/21/2022 LABORATORY mg/dL 10:29 AM PROFESSOR OF POULTRY SCIENCE GFR Estimate >90 >60 01/21/2022 LABORATORY mL/min/1.7 10:29 AM PROFESSOR OF POULTRY SCIENCE 3m2 Comment: Effective November 02, 2021 eGF Rcr in adults is calculated using the 2020 CKD-EPI creatinine equation which includ es age and gender (Yulia et al., NEJM, DOI: 10.1056/OGENld8693018) Specimen Anatomical Collection Method / Collection Time Recei edil Time (Source) Location / Volume Laterality Blood STRUCTURE OF RIGHT Venipuncture / 01/21/2022 9:52 01/11 UPPER LIMB / Unknown AM PROFESSOR OF POULTRY SCIENCE 10:00 AM PROFESSOR OF POULTRY SCIENCE Unknown Jessica Lopezserena PAEZ LAB - BLOOD ORDERABLES Performing Organization Address City/[facility]/[place] [address] Care [facility] [address] Lab (1st floor, no room number) Troponin I (01/21/2022 9:52 AM PROFESSOR OF POULTRY SCIENCE) P athologist Signature Troponin I High 3 <54 ng/L 01/21/2022 LABORATORY Sensitivity 10:33 AM PROFESSOR OF POULTRY SCIENCE Comment: This Troponin-I result was obta ined using a Siemens Dimension [place] High Sensitivity Troponin-I assay (TNIH). Eff ective 10/05/21, nine labs/sites in the [facility] switched from a Siemens [place] Contemporary Troponin I assay (CTNI) to a Siemens [place] High-Sensitivity Troponi n I assay (TNIH). Specimen Anatomical Collection Method / Collection Time Recei edil Time (Source) Location / Volume Laterality Blood STRUCTURE OF RIGHT Venipuncture / 01/21/2022 9:52 01/11 UPPER LIMB / Unknown AM PROFESSOR OF POULTRY SCIENCE 10:00 AM PROFESSOR OF POULTRY SCIENCE Unknown Jessica Crawford PHILIPPE LAB - BLOOD ORDERABLES Performing Organization Address City/[facility]/[place] [address] Care [facility] [address] Lab (1st floor, no room number) EKG 12-lead, tracing only (01/21/2022 9:41 AM PROFESSOR OF POULTRY SCIENCE) Component Value Ref Range Test Analysis Performed Pathologis t Method Time At Signature Systolic Blood mmHg RADIOLOGY Pressure RESULTS Diastolic Blood mmHg RADIOLOGY Pressure RESULTS Ventricular Rate 90 BPM RADIOLOGY RESULTS Atrial Rate 90 BPM RADIOLOGY RESULTS SD Interval 148 ms RADIOLOGY RESULTS QRS Duration 80 ms RADIOLOGY RESULTS QT 344 ms RADIOLOGY RESULTS QTc 420 ms RADIOLOGY RESULTS P [place] 31 degrees RADIOLOGY RESULTS R AXIS 31 degrees RADIOLOGY RESULTS T [place] 65 degrees RADIOLOGY RESULTS Interpretation Sinus rhythm RADIOLOGY ECG Normal ECG RESULTS When compared with ECG of 04-NOV-2021 08:52, No significant change was found Specimen Anatomical Collection Method Collection Time Receive d Time (Source) Location / / Volume Laterality 01/21/2022 9:41 AM PROFESSOR OF POULTRY SCIENCE 10:42 AM PROFESSOR OF POULTRY SCIENCE Jessica Ty PAEZ ECG ORDERABLES Performing Organization Address City/State/ZIP Code Phon e Number RADIOLOGY RESULTS documented in this encounter Visit Diagnoses Diagnosis Cough Chest pain, unspecified type Lipoma of skin and subcutaneous tissue Lipoma of other skin and subcutaneous ti ssue documented in this encounter Administered Medications Inactive Administered Medications - up to 3 most recent administrations Medication Order MAR Action Action Date Dose Rate Site ipratropium - albuterol 0.5 mg/2.5 Given 01/21/2022 9:53 AM PROFESSOR OF POULTRY SCIENCE 6 mLs mg/3 mL (DUONEB) neb solution 6 mL 6 mL, Nebulization, ONCE, On Mon01/21/22 at 0940, For 1 dose documented in this encounter Active and Recently Administered Medications Times are shown in PROFESSOR OF POULTRY SCIENCE. Scheduled Medication Order 01/19/2022 01/20/2022 01/21/2022 ipratropium - albuterol 0.5 mg/2.5 mg/3 mL (DUONEB) neb solution 6 mL (COMPLETED) 53 (Given - Provid er: Nancy Elder RN) 6 mL, Nebulization, ONCE, On Mon01/21/22 at 0940, For 1 dose documented in this encounter Additional Health Concerns Assessment Noted Time PHQ-9 Depression Total Score: 06/28/2021 7:03 AM CD T documented as of this encounter Care Teams Brancher Relationship Specialty Start Date End Date Aydee Burton, PCP - General Nurse Practitioner - 05/17/21 UNDERWRITING INTERNSHIP CHANNEL OPENER Family [address] [place] [id number] Aydee Burton, Assigned PCP 04/28/21 UNDERWRITING INTERNSHIP CHANNEL OPENER [address] [place] [address]702 Louisa Hood, Assigned Neuroscience 07/11/21 UNDERWRITING INTERNSHIP CHANNEL OPENER Provider [address] [place] [address]955 Se Levy, Lead Anatomic Pathology Assistant 08/05/21 05/12/22 Clari Francois Pharmacist Pharmacist 08/06/21 06/07/22 Jocelyn, [facility] [address] [place], [place] [address] Tone Hannah Sleep 08/01/21 Angel Turcios, Provider [address] [place], [place] [address] Lesly Celaya MD Assigned Surgical 09/05/21 [address] Provider [place], [place] [phone] Tawana Patel MA [facility] 09/30/21 Worker Ramses Mcpherson Assigned OBGYN 11/07/21 MD Onesimo Provider [address] [place], [place] [phone] Mago Swift [facility] Lead Anatomic Pathology Assistant Edi Architect - 08/05/21 Clinical documented as of this encounter
--- OUTSIDE RECORDS SUMMARY | 2022-09-21 04:11 | XMS_ITS | Encounter Summary ---
:1980 Author Organization [place] Address [address] [place] [address] Care Team Providers Name Role Phone Aydee Burton CERTIFIED OPHTHALMIC SURGICAL ASSISTANT GENERATOR MAN Primary Care Provider [phone] Aydee Burton APRN GENERATOR MAN Unavailable [phone] Luoisa Hood CERTIFIED OPHTHALMIC SURGICAL ASSISTANT GENERATOR MAN Unavailable [phone] Se Levy RELAY SHOP SUPERVISOR Unavailable Unavailable Clari Ruiz [facility] Unavailable [phone] Angel Hannah MD Unavailable Lesly Celaya MD Unavailable Tawana Patel MA Unavailable Unavailable Ramses Mcpherson MD Unavailable [phone] Obdulio Barrera MD Unavailable [phone] Mago Swift [employer] WORK[employer] Unavailable Encounter Details Date Type Department Care Team Description 01/24/2022 Travel Social History Tobacco Use Types Packs/Day [...] How often do you attend religion or alevism services? Never 08/05/2021 Do you [...] at Date Recorded Female 11/09/2021 7:53 PM FISHING HAND COVID-19 Exposure Response Date Recorded In the last month, have you been in contact with No / Unsure 01/24/2022 10:24 AM CDT someone who was confirmed or suspected to have Coronavirus / COVID-19? documented as of this encounter Plan of Treatment Upcoming Encounters Date Type Specialty Care Team Description 09/26/2022 Appointment Speech Therapy Obdulio Barrera MD [address] [facility] 276 [place], [place] [phone] Anabel Chew, INTERNATIONAL REPRESENTATIVE [address] [place], [place] [address] 09/27/2022 Therapy Visit Physical Therapy Luisana Watkins, PT [address] [place] [address] 09/29/2022 Virtual Visit Pain & Palliative Marilia Deluna, [facility] PhD [address] [place], [place] [address] 09/30/2022 Office Visit Family Practice Aydee Burton, CERTIFIED OPHTHALMIC SURGICAL ASSISTANT GENERATOR MAN [address] [place], [place] [address] 10/03/2022 Therapy Visit Physical Therapy Una Reardon, PT [address] [place] [phone] 10/10/2022 Hospital Encounter Surgery Lesly Celaya MD [address] [place] [address] 10/10/2022 Office Visit Surgery Lesly Celaya MD [address] [place] [address] Ninoska Flowers, PA-C [address] [place] [address] 10/10/2022 Surgery Surgery Lesly Celaya, EXCISION, MASSES - MD back, abdomen, [address] right lower [facility] [place] [address] 10/11/2022 Virtual Visit Clari Su, [facility] [address] [phone] [place] [address] 10/14/2022 Appointment Speech Therapy Anabel Chew, INTERNATIONAL REPRESENTATIVE [facility] [address] [facility] 396 [place] [address] 10/21/2022 Office Visit Pulmonology Obdulio Barrera MD [address] [address] 10/25/2022 PRE VISIT ENT Charo Burton MD Previsit [address] [place] [address] 10/25/2022 Office Visit ENT Charo Burton MD [address] [place] [address] 10/25/2022 Office Visit ENT Provider, Jeannette 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 Bell Clerk 10/28/2022 Appointment Speech Therapy Anabel Chew, INTERNATIONAL REPRESENTATIVE [address] [address] 11/17/2022 Appointment Speech Therapy Anabel Chew, INTERNATIONAL REPRESENTATIVE [address] [address] 12/23/2022 Office Visit Neurology Colby Yeung MD [address] [phone] Scheduled Procedures Name Priority Associated Diagnoses Date/Time EXCISION, MASS, TORSO Lipoma of skin and subcuta neous 10/10/2022 7:30 AM FISHING HAND tissue documented as of this encounter Visit Diagnoses Not on filedocumented in this encounter Additional Health Concerns Assessment Noted Time PHQ-9 Depression Total Score: 15 2022 7:02 AM CD T documented as of this encounter Care Teams Scarfing Machine Operator Relationship Specialty Start Date End Date Aydee Burton, PCP - General Nurse Practitioner - 05/17/21 CERTIFIED OPHTHALMIC SURGICAL ASSISTANT GENERATOR MAN Family [address] [place] [phone] Aydee Burton, Assigned PCP 04/28/21 CERTIFIED OPHTHALMIC SURGICAL ASSISTANT [address] [phone] Louisa Hood, Assigned Neuroscience 07/11/21 CERTIFIED OPHTHALMIC SURGICAL ASSISTANT GENERATOR MAN Provider [address] [place], [place] 358[address] Se Levy, Lead Photo Print Specialist 08/05/21 05/12/22 RELAY SHOP SUPERVISOR Clari Ruiz Pharmacist Pharmacist 08/06/21 06/07/22 Jocelyn, [facility] [address] [place], [place] [phone] [place], Assigned Sleep 08/01/21 Angel Turcios, Provider [address] [place], [place] [address] Lesly Celaya MD Assigned Surgical 09/05/21 [address] Provider [place], [place] [address] Tawana Patel MA [facility] 09/30/21 Worker aRmses Mcpherson Assigned OBGYN 11/07/21 MD Onesimo Provider [address] [place], [place] [address] Obdulio Barrera MD Critical Care 01/24/22 420 [facility] 276 [place], [place] [address] Mago Swift, [employer] WORK[employer] Lead Photo Print Specialist Surveyor Helper - 08/05/21 Clinical documented as of this encounter
--- OUTSIDE RECORDS SUMMARY | 2022-09-21 04:11 | XMS_ITS | Encounter Summary ---
:1980 Author Organization [place] Address [address] [place] [address] Care Team Providers Name Role Phone Aydee Burton WARDROBE MANAGER MANAGER CORE Primary Care Provider [phone] Aydee Burton APRN MANAGER CORE Unavailable [phone] Louisa Hood WARDROBE MANAGER MANAGER CORE Unavailable [phone] Se Levy TECHNICAL FELLOW Unavailable Unavailable Clari Ruiz [facility] Unavailable Angel Hannah MD Unavailable Lesly Celaya MD Unavailable Tawana Patel MA Unavailable Unavailable Ramses Mcpherson MD Unavailable [phone] Mago Swift EMR ANALYST Unavailable Reason for Visit Diagnostic Imaging XR (Routine) - Pending Review Specialty Diagnoses / Procedures Referred By Contact Refer red To Contact Diagnoses Cough Follow-up examination following surgery Reduced chest expansion on inspiration Aydee Burton APRN Procedures XR Chest 2 Views MANAGER CORE [address] [place] [address] Referral ID Status Reason Start Date Expiration Date Visits V isits Requested Authorized [id number] Pending 01/14/2022 01/14/2023 1 1 Review Encounter Details Date Type Department Care Team Description 01/14/2022 Ancillary [facility] Aydee Burton Cough; Procedure Clinic Galt VanessaELADIO Follow-up examination follow ing surgery; [address] [place] [address] MANAGER CORE Reduced chest expansion on [facility] [address] [facility] [address] [place], [place] [phone] [address] Social History Tobacco Use Types Packs/Day Years [...] How often do you attend jew or judaism services? Never 08/05/2021 Do you belong to [...] at Date Recorded Female 11/09/2021 7:53 PM ADJUNCT SOCIOLOGY PROFESSOR COVID-19 Exposure Response Date Recorded In the last month, have you been in contact with No / Unsure 01/14/2022 12:47 PM ADJUNCT SOCIOLOGY PROFESSOR someone who was confirmed or suspected to have Coronavirus / COVID-19? documented as of this encounter Miscellaneous Notes Result Encounter Note - Aydee Burton APRN CNP - 01/14/2022 1:45 PM ADJUNCT SOCIOLOGY PROFESSOR Dear Marta, Here is a summary of your recent test results: Chest xray was normal. For additional lab test information, labtestsonline.org is an excellent reference. In addition, here is a list of due or overdue Health Maintenance reminders: There are no preventive care reminders to display for this patient. Please call us at [phone] (or use [employer]) to address the above recommendations if needed. Thank you for choosing [facility]. It was an honor and a privilege to participate in your care. Healthy regards, TARA Spivey [facility] NCT SOCIOLOGY PROFESSOR documented in this encounter Plan of Treatment Upcoming Encounters Date Type Specialty Care Team Description 09/26/2022 Appointment Speech Therapy Obdulio Barrera MD [address] [facility] 276 [place], [place] [address] Anabel Chew, BRAKE REPAIRER RAILROAD [facility] [address] [facility] 396 [place], [place] [address] 09/27/2022 Therapy Visit Physical Therapy Luisana Watkins, PT [address] [place] [address] 09/29/2022 Virtual Visit Pain & Palliative Marilia Deluna, Ronald PhD [address] [place] [address] 09/30/2022 Office Visit Family Practice Aydee Burton APRN MANAGER CORE [address] [place], [place] [phone] 10/03/2022 Therapy Visit Physical Therapy Una Reardon, PT [address] [place] [address] 10/10/2022 Hospital Encounter Surgery Lesly Celaya MD [address] [place] [address] 10/10/2022 Office Visit Surgery Lesly Celaya MD [address] [place] [address] Ninoska Flowers, PA-C [address] [place] [address] 10/10/2022 Surgery Surgery Lesly Celaya, EXCISION, MASSES - MD back, abdomen, [address] right [place] [address] 10/11/2022 Virtual Visit Pharm Clari Stoll, [address] [address] 10/14/2022 Appointment Speech Therapy Anabel Chew, BRAKE REPAIRER RAILROAD [facility] [address] [facility] 396 [place], [place] [address] 10/21/2022 Office Visit Pulmonology Obdulio Barrera MD [address] [facility] 276 [place] [address] 10/25/2022 PRE VISIT Charo Carter MD Previsit [address] [place], [place] [address] 10/25/2022 Office Visit Charo Carter MD [address] [place] [address] 10/25/2022 Office Visit ENT Provider, Jeannette 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 Associate Professor Of English 10/28/2022 Appointment Speech Therapy Anabel Chew, CELINE [address] [phone] 11/17/2022 Appointment Speech Therapy Anabel Chew SLP [address] [address] 12/23/2022 Office Visit Neurology Colby Yeung MD [address] [place] [address] Scheduled Procedures Name Priority Associated Diagnoses Date/Time EXCISION, MASS, TORSO Lipoma of skin and subcuta neous 10/10/2022 7:30 AM ADJUNCT SOCIOLOGY PROFESSOR tissue documented as of this encounter Procedures Procedure Name Priority Date/Time Associated Diagnosis Comme nts XR CHEST 2 VIEWS Routine 01/14/2022 2:27 PM Cough Results for this ADJUNCT SOCIOLOGY PROFESSOR Follow-up examination proced ure are in following surger y the results Reduced chest section. expansion on inspiration documented in this encounter Results XR Chest 2 Views (01/14/2022 2:27 PM ADJUNCT SOCIOLOGY PROFESSOR) Anatomical Region Laterality Modality Chest Computed Radiography Specimen (Source) Anatomical Location Collection Method / Collectio n Time Received Time / Laterality Volume Impressions 01/14/2022 2:48 PM ADJUNCT SOCIOLOGY PROFESSOR IMPRESSION: There are no acute infiltrates. The cardiac silhouette is not enlarged. Pulmonary vasculature is u nremarkable. TEAGAN LAURENT MD Narrative 01/14/2022 2:48 PM ADJUNCT SOCIOLOGY PROFESSOR CHEST TWO VIEWS 01/14/2022 2:27 PM HISTORY: Cough; Follow-up examination fo llowing surgery; Reduced chest expansion on inspiration. COMPARISON: June 11, 2021 Procedure Note Teagan Laurent MD - 01/14/2022Fo rmatting of this note might be different from the original. CHEST TWO VIEWS 01/14/2022 2:27 PM HISTORY: Cough; Follow-up examination fo llowing surgery; Reduced chest expansion on inspiration. COMPARISON: June 11, 2021 IMPRESSION: There are no acute infiltrat es. The cardiac silhouette is not enlarged. Pulmonary vasculature is u nremarkable. TEAGAN LAURENT MD Aydee Burton WARDROBE MANAGER MANAGER CORE IMG DIAGNOSTIC IMAGING O RDERABLES documented in this encounter Visit Diagnoses Diagnosis Cough Follow-up examination following surgery Reduced chest expansion on inspiration Other symptoms involving respiratory sys tem and chest Lipoma of skin and subcutaneous tissue Lipoma of other skin and subcutaneous ti ssue documented in this encounter Additional Health Concerns Assessment Noted Time PHQ-9 Depression Total Score: 22 06/28/2021 7:03 AM CD T documented as of this encounter Care Teams Grants Specialist Relationship Specialty Start Date End Date Aydee Burton, PCP - General Nurse Practitioner - 05/17/21 WARDROBE MANAGER MANAGER CORE Family [address] [place], [place] [phone] Aydee Burton, Assigned PCP 04/28/21 WARDROBE MANAGER MANAGER CORE [address] [place], [place] [phone] Louisa Hood, Assigned Neuroscience 07/11/21 WARDROBE MANAGER MANAGER CORE Provider [address] [place], [place] [phone] Se Levy, Lead Plant Breeder 08/05/21 05/12/22 Clari Francois Pharmacist Pharmacist 08/06/21 06/07/22 JORDAN Banks [address] [place] [address] [place], Assigned Sleep 08/01/21 Angel Turcios, Provider [address] [place], [place] [phone] Lesly Celaya MD Assigned Surgical 09/05/21 [address] [place] [place] [address] Tawana Patel MA [facility] 09/30/21 Worker Ramses Mcpherson Assigned OBGYN 11/07/21 MD Teagan Provider [address] [place], [place] [address] Mago Swift, [facility] Lead Plant Breeder Organ Grinder - 08/05/21 Clinical documented as of this encounter
--- OUTSIDE RECORDS SUMMARY | 2022-09-21 04:11 | XMS_ITS | Encounter Summary ---
:1980 Author Organization [facility] Address [address] [place] [address] Care Team Providers Name Role Phone Aydee Burton FIRE PREVENTION CAPTAIN MARKET RESEARCH MANAGER Primary Care Provider [phone] Aydee Burton FIRE PREVENTION CAPTAIN MARKET RESEARCH MANAGER Unavailable [phone] Louisa Hood FIRE PREVENTION CAPTAIN MARKET RESEARCH MANAGER Unavailable [phone] Se Levy INTERIOR DESIGN COORDINATOR Unavailable Unavailable Clari Ruiz [facility] Unavailable [phone] Angel Hannah MD Unavailable Lesly Celaya MD Unavailable Tawana Patel MA Unavailable Unavailable Ramses Mcpherson MD Unavailable [phone] Mago Swift ASSOCIATE DENTIST Unavailable Encounter Details Date Type Department Care Team Description 01/19/2022 Travel Social History Tobacco Use Types Packs/Day [...] er 08/05/2021 How often do you attend caodaism or holiness services? Never 08/05/2021 Do you belong to any clubs or organizations such as caodaism N o 08/05/2021 groups, unions, fraternal or [...] Date Recorded Female 11/09/2021 7:53 PM CHIEF CREATIVE OFFICER COVID-19 Exposure Response Date Recorded In the last month, have you been in contact with No / Unsure 01/19/2022 11:23 AM CHIEF CREATIVE OFFICER someone who was confirmed or suspected to have Coronavirus / COVID-19? documented as of this encounter Plan of Treatment Upcoming Encounters Date Type Specialty Care Team Description 09/26/2022 Appointment Speech Therapy Obdulio Barrera MD 420 [facility] [address] [place], [place] [address] Anabel Chew, VEGETABLE CUTTER [place] [id number] [facility] [address] [place], [place] [address] 09/27/2022 Therapy Visit Physical Therapy Luisana Watkins, PT [address] [place] [address] 09/29/2022 Virtual Visit Pain & Palliative Marilia Deluna Care PhD [address] [place] [address] 09/30/2022 Office Visit Family Practice Aydee Burton, FIRE PREVENTION CAPTAIN MARKET RESEARCH MANAGER [address] [place], [place] [phone] 10/03/2022 Therapy Visit Physical Therapy David-Una Tang, PT [address] [place] [address] 10/10/2022 Hospital Encounter Surgery Lesly Celaya MD [address] [place] [address] 10/10/2022 Office Visit Surgery Lesly Celaya MD [address] [place] [address] Ninoska Flowers PA-Ynes [address] [place] [address] 10/10/2022 Surgery Surgery Lesly Celaya, EXCISION, MASSES - MD back, abdomen, [address] [place] [address] 10/11/2022 Virtual Visit Clari Su, [facility] [address] 2417[address] 10/14/2022 Appointment Speech Therapy Anabel Chew, VEGETABLE CUTTER [facility] 516 [facility] [address] [place], [place] [address] 10/21/2022 Office Visit Pulmonology Obdulio Barrera MD 420 [facility] 276 [place] [address] 10/25/2022 PRE VISIT ENT Charo Burton MD Previsit 909 [place] [address] 10/25/2022 Office Visit ENT Charo Burton MD [address] [place] [address] 10/25/2022 Office Visit ENT Provider, 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 Wool Broker 10/28/2022 Appointment Speech Therapy Aanbel Chew, VEGETABLE CUTTER [address] 8[address] 11/17/2022 Appointment Speech Therapy Anabel Chew, VEGETABLE CUTTER [address] [address] 12/23/2022 Office Visit Neurology Colby Yeung MD [address] [place] [id number] Scheduled Procedures Name Priority Associated Diagnoses Date/Time EXCISION, MASS, TORSO Lipoma of skin and subcuta neous 10/10/2022 7:30 AM CHIEF CREATIVE OFFICER tissue documented as of this encounter Visit Diagnoses Not on filedocumented in this encounter Additional Health Concerns Assessment Noted Time PHQ-9 Depression Total Score: 22 06/28/2021 7:03 AM CD T documented as of this encounter Care Teams Automotive Product Specialist Relationship Specialty Start Date End Date Aydee Burton, PCP - General Nurse Practitioner - 05/17/21 FIRE PREVENTION CAPTAIN MARKET RESEARCH MANAGER Family [address] [place] [address] [phone] Aydee Burton, Assigned PCP 04/28/21 FIRE PREVENTION CAPTAIN [facility] [address] [place], [place] [phone] Louisa Hood, Assigned Neuroscience 07/11/21 FIRE PREVENTION CAPTAIN MARKET RESEARCH MANAGER Provider [address] [place] [address] Se Levy, Lead Entry Level Automotive Technician 08/05/21 05/12/22 [facility] Clari Ruiz Pharmacist Pharmacist 08/06/21 06/07/22 [facility] [address] [place] [address] [place], Assigned Sleep 08/01/21 Angel Turcios, Provider [address] [place] [address] Lesly Celaya MD Assigned Surgical 09/05/21 [address] [place] [address] Tawana Patel MA [facility] 09/30/21 Worker Ramses Mcpherson Assigned OBGYN 11/07/21 MD Onesimo Provider [address] [place] [address] Mago Swift, [facility] Lead Entry Level Automotive Technician Laboratory Worker - 08/05/21 Clinical documented as of this encounter
--- OUTSIDE RECORDS SUMMARY | 2022-09-21 04:11 | XMS_ITS | Encounter Summary ---
:1980 Author Organization [facility] Address [address] [facility] [place] [address] Care Team Providers Name Role Phone Aydee Burton FIELD MAP EDITOR CENTRIFUGAL SCREEN TENDER Primary Care Provider [phone] Aydee Burton FIELD MAP EDITOR CENTRIFUGAL SCREEN TENDER Unavailable [phone] Louisa Hood FIELD MAP EDITOR CENTRIFUGAL SCREEN TENDER Unavailable [phone] Se Levy NETWORK PLANNER Unavailable Unavailable Clari Ruiz [facility] Unavailable [phone] Angel Hannah MD Unavailable Lesly Celaya MD Unavailable Tawana Patel MA Unavailable Unavailable Ramses Mcpherson MD Unavailable [phone] Mago Swift BOSS DYER Unavailable Encounter Details Date Type Department Care Team Description 01/20/2022 Travel Social History Tobacco Use Types Packs/Day [...] How often do you attend sabianist or gnosticist services? Never 08/05/2021 Do you [...] at Date Recorded Female 11/09/2021 7:53 PM MANUFACTURING APPLICATIONS ENGINEER COVID-19 Exposure Response Date Recorded In the last month, have you been in contact with No / Unsure 01/20/2022 1:55 PM MANUFACTURING APPLICATIONS ENGINEER someone who was confirmed or suspected to have Coronavirus / COVID-19? documented as of this encounter Plan of Treatment Upcoming Encounters Date Type Specialty Care Team Description 09/26/2022 Appointment Speech Therapy Obdulio Barrera MD 420 [facility] 276 [place], [place] [address] Anabel Chew, MILLER SUPERVISOR [place] 573556 [facility] 396 [place], [place] [address] 09/27/2022 Therapy Visit Physical Therapy Luisana Watkins, PT [address] [place] [address] 09/29/2022 Virtual Visit Pain & Palliative Marilia Deluna Care PhD [address] [facility] [place] [address] 09/30/2022 Office Visit Family Practice Aydee Burton, FIELD MAP EDITOR CENTRIFUGAL SCREEN TENDER [address] [place], [place] [phone] 10/03/2022 Therapy Visit Physical Therapy David-Una Tang, PT [address] [place] [address] 10/10/2022 Hospital Encounter Surgery Lesly Celaya MD [address] [place] [address] 10/10/2022 Office Visit Surgery Lesly Celaya MD [address] [place] [address] Ninoska Flowers PA-Ynes [address] [place] [address] 10/10/2022 Surgery Surgery Lesly Celaya, EXCISION, MASSES - MD back, abdomen, [address] [place] [address] 10/11/2022 Virtual Visit Clari Su, [facility] [address] [address] 10/14/2022 Appointment Speech Therapy Anabel Chew, MILLER SUPERVISOR [facility] [address] [facility] 396 [place], [place] [address] 10/21/2022 Office Visit Pulmonology Obdulio Barrera MD 420 [facility] 276 [place] [address] 10/25/2022 PRE VISIT ENT Charo Burton MD Previsit 909 [place] [address] 10/25/2022 Office Visit ENT Charo Burton MD 909 [place] [address] 10/25/2022 Office Visit ENT Provider, 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 Primary Grade Teacher 10/28/2022 Appointment Speech Therapy Anabel Chew, MILLER SUPERVISOR [address] 816325 11/17/2022 Appointment Speech Therapy Anabel Chew, MILLER SUPERVISOR [address] 696655 12/23/2022 Office Visit Neurology Colby Yeung MD [address] [place] [address] Scheduled Procedures Name Priority Associated Diagnoses Date/Time EXCISION, MASS, TORSO Lipoma of skin and subcuta neous 10/10/2022 7:30 AM MANUFACTURING APPLICATIONS ENGINEER tissue documented as of this encounter Visit Diagnoses Not on filedocumented in this encounter Additional Health Concerns Assessment Noted Time PHQ-9 Depression Total Score: 22 06/28/2021 7:03 AM CD T documented as of this encounter Care Teams Asset Protection Lead Relationship Specialty Start Date End Date Aydee Burton, PCP - General Nurse Practitioner - 05/17/21 FIELD MAP EDITOR CENTRIFUGAL SCREEN TENDER Family [address] [place] [address] [phone] Aydee Burton, Assigned PCP 04/28/21 FIELD MAP EDITOR [facility] [address] [place], [place] [phone] Louisa Hood, Assigned Neuroscience 07/11/21 FIELD MAP EDITOR CENTRIFUGAL SCREEN TENDER Provider [address] [place] [address] Se Levy, Lead Quality Assurance Monitor Chassis 08/05/21 05/12/22 [facility] Clari Ruiz Pharmacist Pharmacist 08/06/21 06/07/22 [facility] [address] [place] [address] [place], Assigned Sleep 08/01/21 Angel Turcios, Provider [address] [place] [address] Lesly Celaya MD Assigned Surgical 09/05/21 [address] [place] [place] [address] Tawana Patel MA [facility] Health 09/30/21 Worker Ramses Mcpherson Assigned OBGYN 11/07/21 MD Onesimo Provider [address] [place] [address] Mago Swift, [facility] Lead Quality Assurance Monitor Chassis Performance Tester - 08/05/21 Clinical documented as of this encounter
--- OUTSIDE RECORDS SUMMARY | 2022-09-21 04:11 | XMS_ITS | Encounter Summary ---
:1980 Author Organization [place] Address [address] [place] [address] Care Team Providers Name Role Phone Aydee Burton CANCER REGISTRY MANAGER TELEGRAPHIC TYPEWRITER INSTALLER Primary Care Provider [phone] Aydee Burton CANCER REGISTRY MANAGER TELEGRAPHIC TYPEWRITER INSTALLER Unavailable [phone] Louisa Hood CANCER REGISTRY MANAGER TELEGRAPHIC TYPEWRITER INSTALLER Unavailable [phone] Se Levy [facility] Unavailable Unavailable Clari Ruiz [facility] Unavailable [phone] Angel Hannah MD Unavailable Lesly Celaya MD Unavailable Tawana Patel MA Unavailable Unavailable Ramses Mcpherson MD Unavailable [phone] Marleny Maloney Unavailable Unavailable Obdulio Barrera MD Unavailable [phone] Obdulio Barrera MD Unavailable [phone] Lesvia Stanley Unavailable Marilia Deluna PhD Unavailable Niyah Decker [facility] Unavailable VirgilioClari [facility] Unavailable JadenLesvian Unavailable Clari Ruiz Jocelyn [facility] Unavailable [phone] Niyah Warner RN Unavailable Delia Avila [facility] Unavailable [phone] Delia Avila [facility] Unavailable [phone] Niyah Decker [facility] Unavailable Mago Swift [facility] Unavailable Niyah Decker [facility] Unavailable SimonaLeela [facility] Unavailable Niyah Decker [facility] Unavailable Encounter Details Date Type Department Care Team Description 01/14/2022 Documentation Only INTERFACED REPORT Unknown, Provider Social History Tobacco Use Types Packs/Day Years [...] er 08/05/2021 How often do you attend yazidism or yarsani services? Never 08/05/2021 Do you belong to any clubs or organizations such as yazidism N o 08/05/2021 groups, unions, fraternal or [...] Date Recorded Female 11/09/2021 7:53 PM CLINICAL STAFF RN COVID-19 Exposure Response Date Recorded In the last month, have you been in contact with No / Unsure 01/14/2022 12:47 PM CLINICAL STAFF RN someone who was confirmed or suspected to have Coronavirus / COVID-19? documented as of this encounter Plan of Treatment Upcoming Encounters Date Type Specialty Care Team Description 09/26/2022 Appointment Speech Therapy Obdulio Barrera MD 420 [facility] 276 [place], [place] [address] Anabel Chew, FORMING MACHINE UPKEEP MECHANIC HELPER [place] [address]85[address] [facility] 396 [place], [place] [address] 09/27/2022 Therapy Visit Physical Therapy Luisana Watkins, PT [address] [place] [address] 09/29/2022 Virtual Visit Pain & Palliative Marilia Deluna, Care PhD [address] [place], [place] [address] 09/30/2022 Office Visit Family Practice Aydee Burton, CANCER REGISTRY MANAGER TELEGRAPHIC TYPEWRITER INSTALLER [address] [place] [address] [phone] 10/03/2022 Therapy Visit Physical Therapy Una Reardon, PT [address] [place] [address] 10/10/2022 Hospital Encounter Surgery Lesly Celaya MD [address] [place], [place] [address] 10/10/2022 Office Visit Surgery Lesly Celyaa MD [address] [place] [address] Ninoska Flowers PA-C [address] [place] [address] 10/10/2022 Surgery Surgery Lesly Celaya, EXCISION, MASSES - MD back, abdomen, [address] [place] [address] 10/11/2022 Virtual Visit Pharm Bryce Ruiz, Clari Banks, [facility] [address] [address]24[address] 10/14/2022 Appointment Speech Therapy Anabel Chew, FORMING MACHINE UPKEEP MECHANIC HELPER [address] 3734[address] 10/21/2022 Office Visit Pulmonology Obdulio Barrera MD [address] [place] [address] 276 [place], [place] [address] 10/25/2022 PRE VISIT ENT Charo Burton MD Previsit [address] [place] [address] [phone] 10/25/2022 Office Visit Charo Carter MD [address] [place] [address] 438895 10/25/2022 Office Visit ENT Provider, 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 School Librarian 10/28/2022 Appointment Speech Therapy Anabel Chew, FORMING MACHINE UPKEEP MECHANIC HELPER [address] 4687[address] 11/17/2022 Appointment Speech Therapy Anabel Chew, FORMING MACHINE UPKEEP MECHANIC HELPER [facility] 516 [facility] 396 [place], [place] [address] 12/23/2022 Office Visit Neurology Colby Yeung MD [address] [place] [address] Scheduled Procedures Name Priority Associated Diagnoses Date/Time EXCISION, MASS, TORSO Lipoma of skin and subcuta neous 10/10/2022 7:30 AM CLINICAL STAFF RN tissue documented as of this encounter Visit Diagnoses Not on filedocumented in this encounter Additional Health Concerns Infection Onset Date Last Indicated Resolved Time Rule Out COVID-19 01/14/2022 01/14/2022 01/14/2022 6:2 9 PM CLINICAL STAFF RN Rule Out COVID-19 03/08/2022 03/08/2022 03/08/2022 4:1 9 PM CDT Rule Out Pertussis 03/08/2022 03/08/2022 03/09/2022 9: 56 AM CDT Rule Out Pertussis 04/05/2022 04/05/2022 04/06/2022 10 :34 AM CDT Assessment Noted Time PHQ-9 Depression Total Score: 22 06/28/2021 7:03 AM CD T documented as of this encounter Care Teams Chicken Stuffer Relationship Specialty Start Date End Date Aydee Burton, PCP - General Nurse Practitioner - 05/17/21 CANCER REGISTRY MANAGER TELEGRAPHIC TYPEWRITER INSTALLER Family [address] [place] [address] [phone] Aydee Burton, Assigned PCP 04/28/21 CANCER REGISTRY MANAGER TELEGRAPHIC TYPEWRITER INSTALLER [address] [place] [address] [phone] Louisa Hood, Assigned Neuroscience 07/11/21 CANCER REGISTRY MANAGER TELEGRAPHIC TYPEWRITER INSTALLER Provider [address] [place] [address] [phone] Se Levy, Lead Agency Operator 08/05/21 05/12/22 [facility] Clari Ruiz Pharmacist Pharmacist 08/06/21 06/07/22 JORDAN Banks [address] [place], [place] [phone] [place], Assigned Sleep 08/01/21 Angel Turcios, Provider [address] [place] [address] Lesly Celaya MD Assigned Surgical 09/05/21 [address] [place] [address] Tawana Patel [facility] 09/30/21 Worker Ramses Mcpherson Assigned OBGYN 11/07/21 MD Onesimo Provider [address] [place] [address] Marleny Maloney Financial Resource 01/17/22 01/17/22 Worker Obdulio Barrera MD Critical Care 01/24/[address] [place] [address] Obdulio Barrera, Assigned Pulmonology 02/06/22 MD Provider [address] [place] [address] Lesvia Stanley EP Cardiac Rehabilitation 03/03/22 03/03/23 [facility]OSP Therapist [address] [place] [phone] Marilia Deluna, PhD Assigned Behavioral 02/20/22 [address] [facility] Provider [place], [place] [phone] Niyah Decker, [facility] Pharmacist Pharmacist 03/07/[address] [place] [address] 812 [place] [address] Clari Poole, Pharmacist Pharmacist 03/07/22 06/15/22 [facility] [address] [facility] [place] [place] [address] Lesvia Stanley, GHADA Cardiac Rehabilitation 03/17/22 03/17/23 [facility] Therapist [address] [facility] [place] [place] [address] Clari Ruiz Assigned MTM 04/09/22 05/27/22 Jocelyn [facility] Pharmacist [address] [place] [place] [address] Niyah Warner, Lead Agency Operator Primary Care - CC 06/27/22 RN Delia Avila, Pharmacist Pharmacist 06/07/22 [facility] 909 [place] [address] Delia Avila, Assigned MTM 06/11/2206/24 [facility] Pharmacist [address] [place] [address] Niyah Decker, [facility] Assigned MTM 05/28/22 06/10/22 420 [facility] 812 [place] [address] Mago Swift, [facility] Lead Agency Operator Trauma Registrar - 08/05/21 Clinical Niyah Decker, [facility] Assigned MTM 06/25/22 07/29/22 420 [facility] 812 Pharmacist [place], [place] [phone] Leela Jarvis, [facility] Pharmacist 07/26/22 05/15/23 [address] [facility] [place] [address] Niyah Decker, [facility] Assigned MTM 08/10/22 420 [facility] 812 [place] [address] documented as of this encounter
--- OUTSIDE RECORDS SUMMARY | 2022-09-21 04:11 | XMS_ITS | Encounter Summary ---
:1980 Author Organization [facility] Address [address] [place] [address] Care Team Providers Name Role Phone Aydee Burton BOARD HANDLER BLACK PULLER Primary Care Provider [phone] Aydee Burton APRN BLACK PULLER Unavailable [phone] Louisa Hood BOARD HANDLER BLACK PULLER Unavailable [phone] Se Levy CAMPAIGN MANAGEMENT SPECIALIST Unavailable Unavailable Clari Ruiz [facility] Unavailable [phone] Angel Hannah MD Unavailable Lesly Celaya MD Unavailable Tawana Patel MA Unavailable Unavailable Ramses Mcpherson MD Unavailable [phone] Mago Swift PLASTIC AND RECONSTRUCTIVE SURGEON Unavailable Reason for Referral CV Testing (Routine) - Closed Specialty Diagnoses / Procedures Referred By Contact Refer red To Contact Diagnoses Chest pain, unspecified type Wheezing Pulmonary air trapping Aydee Burton APRN Procedures Leadless health and human performance professor 8 to 14 Days ZZHC EXT ECG > 48HR TO 21 DAY RCRD W/CONECT INTL RCRD ZZC EXT ECG > 48HR TO 21 DAY REVIEW AND INTERPRETATN SD EXT ECG > 48HR TO 21 DAY RCRD W/CONECT INTL RCRD BLACK PULLER SD EXT ECG > 48HR TO 21 DAY REVIEW AND INTERPRETATN HC EXT ECG > 48HR TO 21 DAY RCRD W/CONECT INTL RCRD [address] [place] [address] Referral ID Status Reason Start Date Expiration Date Visits Requ ested Visits Authorized [id number] Closed 01/19/2022 01/19/2023 1 1 [facility] PHARMACY TECHNICIAN Reason for Visit CV Testing (Routine) - Closed Specialty Diagnoses / Procedures Referred By Contact Refer red To Contact Diagnoses Chest pain, unspecified type Wheezing Pulmonary air trapping Aydee Burton APRN Procedures Leadless health and human performance professor 8 to 14 Days ZZHC EXT ECG > 48HR TO 21 DAY RCRD W/CONECT INTL RCRD ZZC EXT ECG > 48HR TO 21 DAY REVIEW AND INTERPRETATN SD EXT ECG > 48HR TO 21 DAY RCRD W/CONECT INTL RCRD BLACK PULLER SD EXT ECG > 48HR TO 21 DAY REVIEW AND INTERPRETATN HC EXT ECG > 48HR TO 21 DAY RCRD W/CONECT INTL RCRD [address] [place] [address] Referral ID Status Reason Start Date Expiration Date Visits Requ ested Visits Authorized [id number] Closed 01/19/2022 01/19/2023 1 1 Encounter Details Date Type Department Care Team Description 01/20/2022 Hospital Encounter [facility] Aydee Burton Ches t pain, unspecified type; [facility] ELADIO Mendez Wheezing; Heart Care BLACK PULLER Pulmonary air trapping [address] [place] [address] [phone] Social History Tobacco Use Types Packs/Day Years [...] er 08/05/2021 How often do you attend restorationist or latter-day services? Never 08/05/2021 Do you belong to any clubs or organizations such as restorationist N o 08/05/2021 groups, unions, fraternal or [...] at Date Recorded Female 11/09/2021 7:53 PM [facility] PHARM[employer]Y TECHNICIAN COVID-19 Exposure Response Date Recorded In the last month, have you been in contact with No / Unsure 01/20/2022 1:55 PM D[facility]LOMA PHARMACY TECHNICIAN someone who was confirmed or suspected to [...] trapping buPROPion (WELLBUTRIN Take 1 tablet (300 mg) 30 tablet 2 XL) 300 MG 24 hr by mouth daily tabletIndications: PTSD (post-traumatic stress disorder) DULoxetine (CYMBALTA) Take 120 mg by mouth 0 60 MG capsule At Bedtime 2 tablets - 120mg total QUEtiapine (SEROQUEL) Take 100 mg by mouth 30 tablet 2 02/2022 100 MG tablet as needed QUEtiapine (SEROQUEL) Take 200 mg by mouth 0 200 MG tablet At Bedtime vitamin D3 Take 1 tablet by mouth 0 (CHOLECALCIFEROL) 50 daily mcg (2000 units) tablet albuterol (PROAIR [...] albuterol Take 1 vial (3 mLs) by 90 mL 3 01/21/2022 02/03/2022 0.5 mg/2.5 mg/3 mL nebulization every 6 (DUONEB) 0.5-2.5 (3) hours as needed for MG/3ML neb shortness of breath / solutionIndications: dyspnea or wheezing Chest tightness, SOB (shortness of breath) lamoTRIgine (LAMICTAL) Take 1 tablet (100 mg) 0 0 01/14/2022 02/12/2022 100 MG tablet by mouth daily And a 200mg Total dose in 300mg daily lamoTRIgine (LAMICTAL) Take 1 tablet (200 mg) 0 0 01/14/2022 02/12/2022 200 MG tablet by mouth daily With a 100 mg to total 300mg daily methocarbamol (ROBAXIN) Take 1-1.5 tablets 90 tablet 1 /12/202105/14/2022 500 MG (500-750 mg) by mouth tabletIndications: 3 times daily as Chronic myofascial needed for muscle pain, Trigger point of spasms shoulder region, unspecified laterality ondansetron Take 1 tablet (4 mg) 12 tablet 0 01/14/202211/2021 (ZOFRAN-ODT) 4 MG ODT by mouth every 8 hours tabIndications: S/P as needed for nausea laparoscopic hysterectomy predniSONE (DELTASONE) Take two tablets (= 10 tablet 0 02/202201/24/2022 20 MG tablet 40mg) each day for 5 (five) days documented as of this encounter Progress Notes Carolyn Khan - 01/20/2022 2:14 PM CST Ziopatch was applied for 14 days. Written and verbal instructions were given. [facility]MA PHARMACY TECHNICIAN documented in this encounter Miscellaneous Notes Result Encounter Note - Aydee Burton APRN CNP - 01/20/2022 11:59 PM CST Dear Marta, Here is a summary of your recent test results: Great news. You have a normal hospital monitor. For additional lab test information, [email or web address].org is an excellent reference. In addition, here is a list of due or overdue Health Maintenance reminders: There are no preventive care reminders to display for this patient. Please call us at [phone] (or use [employer]) to address the above recommendations if needed. Thank you for choosing [facility]. It was an honor and a privilege to participate in your care. Healthy regards, TARA Spivey [facility] documented in this encounter Plan of Treatment Upcoming Encounters Date Type Specialty Care Team Description 09/26/2022 Appointment Speech Therapy Obdulio Barrera MD [address] [place] [address] Anabel Chew, MANAGER PRODUCT MARKETING [facility] [address] [facility] [address] [place], [place] [address] 09/27/2022 Therapy Visit Physical Therapy Luisana Watkins, PT [address] [place] [address] 09/29/2022 Virtual Visit Pain & Palliative Marilia Deluna, Care PhD [address] [place] [address] 09/30/2022 Office Visit Family Practice Aydee Burton, BOARD HANDLER [facility] [address] [place], [place] [phone] 10/03/2022 Therapy Visit Physical Therapy Una Reardon, PT [address] [place] [address] 10/10/2022 Hospital Encounter Surgery Lesly Celaya MD [address] [place] [address] 10/10/2022 Office Visit Surgery Lesly Celaya MD [address] [place] [address] Ninoska Flowers PA-C [address] [place] [address] 10/10/2022 Surgery Surgery Lesly Celaya, EXCISION, MASSES - back, abdomen, [address] right lower [facility] [place] [address] 10/11/2022 Virtual Visit Clari Su, [place] [id number] [address] 10/14/2022 Appointment Speech Therapy Anabel Chew, MANAGER PRODUCT MARKETING [address] [address] 10/21/2022 Office Visit Pulmonology Obdulio Barrera MD [address] [address] 10/25/2022 PRE VISIT ENT Charo Burton MD Previsit [address] [place], [place] [address] 10/25/2022 Office Visit ENT Charo Burton MD [address] [place], [place] [address] 10/25/2022 Office Visit ENT Provider, 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 Tabulating Supervisor 10/28/2022 Appointment Speech Therapy Anabel Chew, MANAGER PRODUCT MARKETING [address] [address] 11/17/2022 Appointment Speech Therapy Anabel Chew, MANAGER PRODUCT MARKETING [address] [address] 12/23/2022 Office Visit Neurology Colby Yeung MD [address] [id number] Scheduled Procedures Name Priority Associated Diagnoses Date/Time EXCISION, MASS, TORSO Lipoma of skin and subcuta neous 10/10/2022 7:30 AM [facility] PHARMACY TECHNICIAN tissue documented as of this encounter Procedures Procedure Name Priority Date/Time Associated Diagnosis Comme nts LEADLESS LINUX PROGRAMMER Routine 01/20/2022 2:14 PM Chest pain, R esults for this APPLICATION AND DIPLOMA PHARMACY TECHNICIAN unspecified type procedure are in INTERP 8 TO 14 DAYS Wheezing the results Pulmonary air section. trapping documented in this encounter Results LEADLESS LINUX PROGRAMMER APPLICATION AND INTERP 8 TO 14 DAYS (01/20/2022 2:14 PM DIPLOMA PHARMACY TECHNICIAN) Anatomical Region Laterality Modality Other Specimen (Source) Anatomical Location Collection Method / Collectio n Time Received Time / Laterality Volume Narrative This result has an attachment that is no t available. Aydee Burton BOARD HANDLER BLACK PULLER [facility] PRASHANTH CORDERO documented in this encounter Visit Diagnoses Diagnosis Chest pain, unspecified type Wheezing Pulmonary air trapping Lipoma of skin and subcutaneous tissue Lipoma of other skin and subcutaneous ti ssue documented in this encounter Additional Health Concerns Assessment Noted Time PHQ-9 Depression Total Score: 06/28/2021 7:03 AM CD T documented as of this encounter Care Teams Manual Lathe Operator Relationship Specialty Start Date End Date Aydee Burton, PCP - General Nurse Practitioner - 05/17/21 BOARD HANDLER BLACK PULLER Family [address] [place], [place] [phone] Aydee Burton, Assigned PCP 04/28/21 BOARD HANDLER BLACK PULLER [address] [place], [place] [phone] Louisa Hood, Assigned Neuroscience 07/11/21 BOARD HANDLER BLACK PULLER Provider [address] [place], [place] [phone] Se Levy, Lead Records Assistant 08/05/21 05/12/22 CAMPAIGN MANAGEMENT SPECIALISTClari Ordonez Pharmacist Pharmacist 08/06/21 06/07/22 Jocelyn, [facility] [address] [place], [place] [phone] [place], Assigned Sleep 08/01/21 Angel Turcios, Provider [address] [place], [place] [phone] Lesly Celaya MD Assigned Surgical 09/05/21 [address] [place] [address] Tawana Patel MA [facility] 09/30/21 Worker Ramses Mcpherson [facility]Valerio 11/07/21 MD [facility] Provider [address] [place] [address] Mago Swift [facility] Lead Records Assistant Block Mechanic - 08/05/21 Clinical documented as of this encounter
--- OUTSIDE RECORDS SUMMARY | 2022-09-21 04:12 | XMS_ITS | Encounter Summary ---
:1980 Author Organization [facility] Address [address] [place] [address] Care Team Providers Name Role Phone Aydee Burton IRON SETTER CONTINUOUS PROCESS COFFEE ROASTER Primary Care Provider Aydee Burton IRON SETTER CONTINUOUS PROCESS COFFEE ROASTER Unavailable [phone] Louisa Hood IRON SETTER CONTINUOUS PROCESS COFFEE ROASTER Unavailable [phone] Se Levy CUSTOMER SERVICE TECHNICIAN Unavailable Unavailable Clari Ruiz [facility] Unavailable Angel Hannah MD Unavailable Lesly Celaya MD Unavailable Tawana Patel MA Unavailable Unavailable Yakov Muniz MD Unavailable [phone] Mago Swift [employer] SERVICE TECHNICIAN Unavailable Reason for Visit Auth/Cert Specialty Diagnoses / Procedures Referred By Contact Refer red To Contact Surgery Diagnoses Menorrhagia Dysmenorrhea Dyspareunia in female Menorrhagia [N92.0] Dysmenorrhea [N94.6] Dyspareunia in female [N94.10] Rh Periop Services Procedures ZZC LAPAROSCOPY W TOT HYSTERECT UTERUS 250 GRAM OR LESS ZZC LAPAROSCOPY TOTAL HYSTERECTOMY UTERUS > 250 GRAM TOTAL LAPAROSCOPIC HYSTERECTOMY [address] [place], [place] [address] Phone: Fax: Referral ID Status Reason Start Date Expiration Date Visits Requ ested Visits Authorized [id number] 1 1 Encounter Details Date Type Department Care Team Description 12/28/2021 Surgery [facility] Yakov Muniz L LAPAROSCOPIC [place] PeriOp MD [place] HYSTERECTOMY WITH Services [address] BILATERAL SALPINGECTOMY [address] [place] [address] [place], [place] [phone] (Wo rk) [phone] Surgery Details Date/Time Status Location OR Service Patient Case Case Traum a Class Class Type Case? 12/28/21 7:30 Posted [facility] OR OR 02 Gynecology Same Day AM Surgery Panel 1 Procedure LRB Anes Op Region Wound Class Commen ts TOTAL LAPAROSCOPIC Bilateral General Abdomen II-Clean Contamin ated HYSTERECTOMY WITH BILATERAL SALPINGECTOMY Surgeon Surgeon Role Service Panel Yakov Muniz MD Primary Gynecology 1 Rico Osborne MD Assisting Gynecology 1 documented in this encounter Social History Tobacco [...] How often do you attend protestant or anabaptism services? Never 08/05/2021 Do you [...] at Date Recorded Female 11/09/2021 7:53 PM ANESTHESIOLOGIST AND CRITICAL CARE COVID-19 Exposure Response Date Recorded In the last month, have you been in contact with No / Unsure 12/28/2021 5:49 AM ANESTHESIOLOGIST AND CRITICAL CARE someone who was confirmed or suspected to have Coronavirus / COVID-19? documented as of this encounter Last Filed Vital Signs Vital Sign Reading Time Taken Comments Blood Pressure 121/70 12/28/2021 9:30 AM ANESTHESIOLOGIST AND CRITICAL CARE Pulse 90 12/28/2021 6:22 AM ANESTHESIOLOGIST AND CRITICAL CARE Temperature 36.2 ??C (97.1 ??F) 12/28/2021 9:30 AM ANESTHESIOLOGIST AND CRITICAL CARE Respiratory Rate 13 12/28/2021 9:30 AM ANESTHESIOLOGIST AND CRITICAL CARE Oxygen Saturation 100% 12/28/2021 9:30 AM ANESTHESIOLOGIST AND CRITICAL CARE Inhaled Oxygen Concentration - - Weight 92.2 kg (203 lb 4.8 oz) 12/28/2021 6:22 AM ANESTHESIOLOGIST AND CRITICAL CARE Height 170.2 cm (5' 7) 12/28/2021 6:22 AM ANESTHESIOLOGIST AND CRITICAL CARE Body Mass Index 31.84 12/28/2021 6:22 AM ANESTHESIOLOGIST AND CRITICAL CARE documented in this encounter Discharge Instructions Discharge InstructionsAngela Ramos RN - 12/28/2021 11:36 AM ANESTHESIOLOGIST AND CRITICAL CARE GENERAL ANESTHESIA OR SEDATION ADULT DISCHARGE INSTRUCTIONS SPECIAL PRECAUTIONS FOR 24 HOURS AFTER SURGERY IT IS NOT UNUSUAL TO FEEL LIGHT-HEADED OR FAINT, UP TO 24 HOURS AFTER SURGERY OR WHILE TAKING PAIN MEDICATION. IF YOU HAVE THESE SYMPTOMS; SIT FOR A FEW MINUTES BEFORE STANDING AND HAVE SOMEONE ASSIST YOU WHEN YOU GET UP TO WALK OR USE THE BATHROOM. YOU SHOULD REST AND RELAX FOR THE NEXT 24 HOURS AND YOU MUST MAKE ARRANGEMENTS TO HAVE SOMEONE STAY WITH YOU FOR AT LEAST 24 HOURS AFTER YOUR DISCHARGE. AVOID HAZARDOUS AND STRENUOUS ACTIVITIES. DO NOTMAKE IMPORTANT DECISIONS FOR [address] ANY VEHICLE OR OPERATE MECHANICAL EQUIPMENT FOR 24 HOURS FOLLOWING THE END OF YOUR SURGERY. EVEN THOUGH YOU MAY FEEL NORMAL, YOUR REACTIONS MAY BE AFFECTED BY THE MEDICATION YOU HAVE RECEIVED. DO NOT DRINK ALCOHOLIC BEVERAGES FOR 24 HOURS FOLLOWING YOUR SURGERY. DRINK CLEAR LIQUIDS (APPLE JUICE, ANGIE ADAIR, 7-UP, BROTH, ETC.). PROGRESS TO YOUR REGULAR DIET YOU FEEL ABLE. YOU MAY HAVE A DRY MOUTH, A SORE THROAT, MUSCLES ACHES OR TROUBLE SLEEPING. THESE SHOULD GO AWAY AFTER 24 HOURS. CALL YOUR DOCTOR FOR ANY OF THE FOLLOWING: SIGNS OF INFECTION (FEVER, GROWING TENDERNESS AT THE SURGERY SITE, A LARGE AMOUNT OF DRAINAGE OR BLEEDING, SEVERE PAIN, FOUL-SMELLING DRAINAGE, REDNESS OR SWELLING. IT HAS BEEN OVER 8 TO 10 HOURS SINCE SURGERY AND YOU ARE STILL NOT ABLE TO URINATE (PASS WATER). Maximum acetaminophen (Tylenol) dose from all sources should not exceed 4 grams (4000 mg) per day. Last dose given at 6:30 am, next dose due after 12:30pm. HYSTERECTOMY DISCHARGE INSTRUCTIONS WHAT TO EXPECT THE FIRST 24 HOURS: - You may have ice chips right after surgery. - You may start eating and drinking as soon as you feel ready. This is usually about 2 hours after surgery. We encourage you to drink water or other liquids to stay hydrated. - We will remove your urine catheter in the first 2 hours, if you have one. You will be able to urinate on your own. - We will give you medicine to help with any pain or cramping. You may also ask for medicine for itching, nausea and shivering. - We will instruct you on when to remove your bandage and how to care for your surgical cut (if you have one) at home. - You may begin showering the day after surgery or as directed by your surgeon. - You should be walking at least 3 times a day. AFTER YOU'RE HOME: - Call your surgeon's office with any questions or if you need support. - Rest often. - Drink plenty of water (the amount you normally need to feel hydrated). For many people this is 8 glasses a day. Drinks with caffeine are okay in moderate amounts. - Try to take at least 3 short walks each day or as much as you are able. Slowly increase your activity each day. - It is okay to climb stairs, but use the handrail in case you get dizzy. - Follow your surgeon's advice on when to return to normal activities and to work. - If you were given an incentive spirometer: Try to cough, breathe deeply and use your breathing device (spirometer) every 15 to 30 minutes when awake. This will help prevent breathing problems and fevers. INCISION CARE: - The area around your incision may be numb. This should go away over several months. - Keep the incision dry and covered for the first 24 hours. - Remove your bandage after 24 hours, even if you have some drainage. Leave your skin open to the air. It is okay to cover it during the day if your clothing rubs against it. - If you have steri-strips (small pieces of tape) across the incision, leave them in place. They will fall off on their own. If they are still in place after a week, you can remove them. - Don't use ointments, oils, lotions or creams on your incision unless told to use them. - Avoid nicotine (smoking, vaping) if possible. Nicotine can slow healing. BATHING AND HYGIENE: Once your surgeon says you have shower, please follow these tips: - Shower daily. Gently soap your belly and let the soapy water run over the incision. Don't rub. - Pat to dry. Dry all areas fully, including any folds in the belly area. - You don't need to re-cover the wound. PAIN: It is common to have some pain and cramping when you go home. - Take pain medicine as needed. Do not wait for the pain to become strong before taking pain medicine. - Follow the directions that came with your pain medicine. - Take acetaminophen (Tylenol), ibuprofen (Advil, Motrin), or naprosyn (Aleve) with food and a full glass of water. This will reduce stomach upset. While taking narcotic (opioid) pain medicine: - Don't take pain medicine if you have no pain or your pain is mild and tolerable. - Don't drive or use heavy machinery. You may re-start driving and operating heavy machinery after you have stopped taking narcotics and you feel safe to do so. - Don't make important or legal decisions. - If you have nausea, vomiting or a rash, stop the medicine and call you doctor. - Opioid pain medicines can cause constipation. When coughing or sneezing, you may want to hug a pillow for added support if you had surgery on yourbelly. This may reduce pain. If you had laparoscopic surgery: You may feel some mild pain in your belly, chest or shoulder withinthe first 48 hours. This is due to the gas (CO2) used during the surgery. This pain will pass quickly as the gas is absorbed. For relief, take your pain medicine and lie flat. DIET: - You may eat your normal diet unless told otherwise. - Foods that are high in protein (fish, meat, poultry, soy, dairy and beans) may help you heal faster. - Foods that are high in fiber (prunes, vegetables, fruits and grains) can help prevent constipation(trouble pooping). Constipation is common after surgery, especially if you take opioid pain medicines. CONSTIPATION: If you become constipated (trouble pooping), try the options listed below as needed. - Take stool softeners as needed, such as Colace. - Milk of magnesia: 30 mL (2 tablespoons) twice a day. - Metamucil: 2 tablespoons mixed with 12 ounces of liquid. If you're told to use a laxative, try the following options: - Senokot-S - Dulcolax oral or suppository - Miralax every day as needed You can stop if you are pooping regularly or if you start having diarrhea (watery poop). Call our office if you have not had a bowel movement for 2 days. FOLLOW-UP VISITS: You may need to see your surgeon for a check-up. This varies by the type of surgery you had. If you need to return, your surgeon will let you know when. Please call your surgeon's office to make a follow-up appointment if not already done. CALL YOUR DOCTOR IF YOU HAVE: SEVERE CHILLS AND FEVER OF 100.4 DEGREES FAHRENHEIT OR HIGHER, TAKEN UNDER THE TONGUE. BRIGHT RED BLOOD OR LARGE CLOTS COMING OUT OF THE VAGINA--ENOUGH TO SOAK ONE PAD IN AN HOUR. INCREASED PAIN, WARMTH, SWELLING, REDNESS, BLEEDING OR FLUID LEAKING FROM THE SURGERY SITE. URINE OR VAGINAL FLUID THAT SMELLS BAD. YOU CANNOT URINATE (USE THE TOILET), IT HOWARD WHEN YOU URINATE OR YOU NEED TO GO MORE OFTEN. SEVERE NAUSEA (FEELING SICK TO YOUR STOMACH) OR VOMITING (THROWING UP). INCREASED PAIN THAT YOU CANNOT CONTROL WITH MEDICINE. DR. YAKOV MUNIZ M.D. CLINIC PHONE NUMBER: [phone]. [place] [employer] MANAGER THESIOLOGIST AND CRITICAL CARE documented in this encounter Medications at Time [...] At Bedtime 2 tablets - 120mg total vitamin D3 Take 1 tablet by 0 (CHOLECALCIFEROL) 50 mcg mouth daily (2000 units) tablet [id number]-uktovsvxh-zbxfvm Place 3 drops into 10 mL 0 12/31/2021 ortisone (CORTISPORIN) the right ear 4 [id number] otic times daily for 7 solutionIndications: days Infective otitis externa, right ascorbic acid (VITAMIN C) Take 750 mg by mouth 0 06/16/2022 250 MG CHEW chewable daily tablet gabapentin (NEURONTIN) 4 times daily 0 12/14/2021 04/29/2022 400 MG capsule lamoTRIgine (LAMICTAL) Take by mouth daily 0 09/1301/14/2022 100 MG tablet And a 200mg Total dose in 300mg daily lamoTRIgine (LAMICTAL) Take by mouth daily 0 09/1301/14/2022 200 MG tablet With a 100 mg to total 300mg daily methocarbamol (ROBAXIN) Take 1-1.5 tablets 90 tablet 0 11/202101/12/2022 500 MG tabletIndications: (500-750 mg) by Chronic myofascial pain, mouth 3 times daily Trigger point of shoulder as needed for muscle region, unspecified spasms laterality ondansetron (ZOFRAN-ODT) Take 1-2 tablets 4 tablet 0 12/2801/14/2022 4 MG ODT tabIndications: (4-8 mg) by mouth S/P laparoscopic every 8 hours as hysterectomy needed for nausea oxyCODONE (ROXICODONE) 5 Take 1-2 tablets 12 tablet 0 12/2801/14/2022 MG tabletIndications: S/P (5-10 mg) by mouth laparoscopic hysterectomy every 4 hours as needed for moderate to severe pain QUEtiapine (SEROQUEL) 100 Take 1 tablet (100 30 tablet 2 01/14/2022 MG tabletIndications: mg) by mouth At Insomnia due to Bedtime psychological stress documented as of this encounter H&P Notes Phillip Pereira DO - 12/28/2021 6:55 AM CST I have reviewed the surgical (or preoperative) H&P that is linked to this encounter, and examined the patient. There are no significant changes THESIOLOGIST AND CRITICAL CARE Source Note - Nasim Milton MD - 12/24/2021 2:00 PM ANESTHESIOLOGIST AND CRITICAL CARE SUBJECTIVE: Marta Hawkins is a 41 year old female presenting with a chief complaint of right ear pain. No fever. Worsening during the day. Onset of symptoms was 2 day(s) ago. Course of illness is worsening. Severity moderate Current and Associated symptoms: right ear pain Treatment measures tried include Fluids, Rest and tylenol. Predisposing factors include None. Radiation of pain into neck, worse with turning head. Denies any h/o recurrent ear infections. Did use Q-tips to clean ears Will be having surgery next week and wondering if this will be a problem Completed J&J COVID vaccination in March 2021, booster Moderna COVID vaccination 10/08/21 Past Medical History: Diagnosis Date ??? Depressive disorder as teen and on ??? Hypertension 2002 only during ??? Sleep apnea Borderline 4.8 per testing. (<5) Takes longer to wake up. ??? Uncomplicated asthma not sure from being sick Current Outpatient Medications Medication Sig Dispense Refill ??? acetaminophen (TYLENOL) 500 MG tablet Take 500-1,000 mg by mouth every 6 hours as needed for mild pain ??? ascorbic acid (VITAMIN C) 250 MG CHEW chewable tablet Take 750 mg by mouth daily ??? buPROPion (WELLBUTRIN XL) 300 MG 24 hr tablet Take 1 tablet (300 mg) by mouth daily (Patient taking differently: Take 300 mg by mouth every morning ) 30 tablet 2 ??? DULoxetine (CYMBALTA) 60 MG capsule Take 60 mg by mouth At Bedtime 2 tablets - 120mg total ??? gabapentin (NEURONTIN) 400 MG capsule 4 times daily ??? lamoTRIgine (LAMICTAL) 100 MG tablet Take by mouth daily And a 200mg Total dose in 300mg daily ??? lamoTRIgine (LAMICTAL) 200 MG tablet Take by mouth daily With a 100 mg to total 300mg daily ??? methocarbamol (ROBAXIN) 500 MG tablet Take 1-1.5 tablets (500-750 mg) by mouth 3 times daily as needed for muscle spasms 90 tablet 0 ??? QUEtiapine (SEROQUEL) 100 MG tablet Take 1 tablet (100 mg) by mouth At Bedtime 30 tablet 2 ??? vitamin D3 (CHOLECALCIFEROL) 50 mcg (2000 units) tablet Take 1 tablet by mouth daily Social History Tobacco Use ??? Smoking status: Never Smoker ??? Smokeless tobacco: Never Used Substance Use Topics ??? Alcohol use: Not Currently Comment: None for 1.5 personal choice. Family hx. ROS: Review of systems negative except as stated above. OBJECTIVE: BP 118/66 (BP Location: Right arm, Patient Position: Chair, Cuff Size: Adult Regular) Pulse 94 Temp 98.2 ??F (36.8 ??C) (Oral) Resp 16 Ht 1.702 m (5' 7) Wt 92.5 kg (204 lb) LMP 12/11/2021 (Exact Date) SpO2 97% No BMI 31.95 kg/m?? GENERAL APPEARANCE: healthy, alert and no distress EYES: EOMI, PERRL, conjunctiva clear HENT: left ear canal and TM normal. Right ear canal with mild erythema, right TM normal RESP: lungs with no audible wheezes or increase work of breathing PSYCH: mentation appears normal and affect normal/bright ASSESSMENT/PLAN: (H60.391) Infective otitis externa, right (primary encounter diagnosis) Plan: ezrsimnm-bxkvpansu-hptxeldtvujzju (CORTISPORIN) 3.5-69618-3 otic solution Refrain from using Q-tips in ear canal. Okay for tylenol for discomfort. RX cortisporin otic drops for right otitis externa. Reassurance given that otitis externa infection should not delay upcoming surgery. Follow up with primary provider if no improvement of symptoms in 1 week Nasim Milton MD December 24, 2021 2:28 PM THESIOLOGIST AND CRITICAL CARE documented in this encounter Miscellaneous Notes Op Note - Yakov Muniz MD - 12/28/2021 9:54 AM CST Procedure Date: 12/28/2021 PREOPERATIVE DIAGNOSES: 1. Menometrorrhagia. 2. Dysmenorrhea. 3. Dyspareunia. POSTOPERATIVE DIAGNOSES: 1. Menometrorrhagia. 2. Dysmenorrhea. 3. Dyspareunia. PROCEDURE: Total laparoscopic hysterectomy with bilateral salpingectomy. SURGEON: Yakov Green M.D. PERSONNEL SCHEDULER: Rico Osborne M.D. ANESTHESIA: General. INDICATIONS FOR PROCEDURE: Marta Hwakins is a 41-year-old female, para 6 with 4 prior vaginal deliveries, who is also status post tubal ligation and status post endometrial ablation in 2018, who haspersistent menometrorrhagia, dysmenorrhea and dyspareunia, all suggestive of adenomyosis. Risks, benefits and alternatives of management were discussed with the patient. A preoperative ultrasound was reviewed, which showed an anatomically normal uterus with no other pelvic findings. We mutually agreedupon definitive therapy in the form of hysterectomy, which would be the only appropriate therapy foradenomyosis, which again was highly clinically suspected. The procedure was explained in detail and consent obtained. OPERATIVE FINDINGS: Examination under anesthesia demonstrated a midline mobile uterus. At the time of laparoscopy, the uterus was approximately 8 weeks' size and the serosal surface appeared normal. Both ovaries appeared normal. The patient was status post tubal ligation using Filshie clips. The Filshie clip was attached to the right tube. The left Filshie clip was missing and not identified at the time of surgery. Both ureters were identified and peristalsing both prior to and after the hysterectomy was completed. The appendix was not visualized as it appeared to be retrocecal. The liver edge appeared normal. OPERATIVE PROCEDURE: After adequate general anesthesia was obtained, the patient was placed in the dorsal lithotomy position, prepped and draped in the usual sterile fashion. Adequacy of the anestheticwas confirmed and a surgical timeout conducted. A speculum was inserted and the cervix visualized. The anterior lip of the cervix was grasped with asingle tooth tenaculum. The uterus was sounded. A series of dilators were passed sequentially through the endocervix up to 6 mm. A VCare cup balloon was then inserted into the uterine cavity and inflated and the VCare cup tightly affixed to the cervix. The speculum was removed and a sterile glove containing 2 Ray-Tecs was placed within the vagina to create a seal. A Beltran catheter was placed with return of clear urine and the perineum draped from the abdominal field. A 5 mm infraumbilical incision was made. A Veress needle was inserted and its proper intraperitonealpositioning confirmed by the drop saline method. A pneumoperitoneum was created using carbon dioxidewith opening pressures of 4 mmHg. After instillation of approximately 1.5 liters of carbon dioxide, the Veress needle was withdrawn and a trocar and sheath inserted. The trocar was removed, the laparoscope inserted and the proper intraperitoneal positioning confirmed. Two additional ports were placed in the right and left lower quadrant using transillumination to avoid any abdominal wall vessels; 5 mm ports were inserted. The pelvis was then visualized and a photographic record was made. Ureters were identified and observed peristalsing. We then used the Thunderbeat device to clamp, seal and cut the mesosalpinx extending the area of dissection through the uteroovarian ligament, the round ligament along the broad ligaments and down along the lateral uterus to the level of the cervix. This was done bilaterally. A curvilinear incision was then made using the Thunderbeat and the bladder mobilized off the lower uterine segment and cervix.We had extended the dissection bilaterally with the Thunderbeat to the level of the cervix and couldvisually see and palpate the VCare cup groove. We used the Thunderbeat to cut through the vagina into the VCare cup groove and then extended this circumferentially, thus the cervix, uterus and tubes from their anatomic attachments. The specimen was removed vaginally. The vaginal apex was then closed with interrupted figure-of-X sutures of 0 Vicryl in a transverse fashion. We then recreated the pneumoperitoneum. There was some slight bleeding along the posterior peritoneal edge, which was controlled using the Thunderbeat. Both ureters were identified to be peristalsing. The surgical site was copiously irrigated with sterile saline and suctioned until clear. We then placed coagulation powder over the raw surface areas. No additional bleeding was seen. The accessory ports were removed under direct visualization. The abdomen evacuated the carbon dioxide to the extent possible and the laparoscope and laparoscopic sheath were removed. Skin edges were reapproximated using interrupted sutures of 4-0 Monocryl. Steri-Strips and sterile bandages were placed. The patient was recalled from general anesthesia and taken to the recovery room in satisfactory condition. There were no intraoperative complications. Estimated blood loss was [address] Rico Osborne was present throughout the entire surgery. His assistance was required for camera operation, maintaining a clear operative field and retraction during the vaginal portion of the closure to allow the procedure to proceed expeditiously and safely. Yakov Muniz MD MT: [place] Name: MARTA HAWKINS MRN: [id number] Account: [id number] : 1980 Procedure Date: 12/28/2021 Document: [id number] THESIOLOGIST AND CRITICAL CARE Brief Op Note - Yakov Muniz MD - 12/28/2021 5:50 AM CST [facility] Brief Operative Note Pre-operative diagnosis: Menorrhagia [N92.0] Dysmenorrhea [N94.6] Dyspareunia in female [N94.10] Post-operative diagnosis menometrorrhagia Dysmenorrhea dyspareunia Procedure: Procedure(s): TOTAL LAPAROSCOPIC HYSTERECTOMY WITH BILATERAL SALPINGECTOMY Surgeon(s): Surgeon(s) and Role: * Yakov Muniz MD - Primary * Rico Osborne MD - Assisting Estimated blood loss: * No values recorded between 12/28/2021 7:56 AM and 12/28/2021 9:31 AM * Specimens: ID Type Source Tests Collected by Time Destination 1 : UTERUS, CERVIX, AND BILATERAL FALLOPIAN TUBES Tissue Uterus, Cervix, Bilateral Fallopian Tubes SURGICAL PATHOLOGY EXAM Yakov Muniz MD 12/28/2021 9:11 AM Findings: 8week size uterus. Normal ovaries. Filshie clip right ovary - 2nd Filshie clip not seen. Normal upper abdomen THESIOLOGIST AND CRITICAL CARE documented in this encounter Plan of Treatment Upcoming Encounters Date Type Specialty Care Team Description 09/26/2022 Appointment Speech Therapy Obdulio Barrera MD [address] [facility] [address] [place], [place] [phone] Anabel Chew, HEALTH TEACHER [address] [place], [place] [phone] 09/27/2022 Therapy Visit Physical Therapy Luisana Watkins, PT [address] [place] [address] 09/29/2022 Virtual Visit Pain & Palliative Marilia Deluna, [facility] PhD [address] [place], [place] [address] 09/30/2022 Office Visit Family Practice Aydee Burton, IRON SETTER [address] [address] 10/03/2022 Therapy Visit Physical Therapy Una Reardon, PT [address] [place] [phone] 10/10/2022 Hospital Encounter Surgery Lesly Celaya MD [address] [place], [place] [phone] 10/10/2022 Office Visit Surgery Lesly Celaya MD [address] [place], [place] [phone] Ninoska Flowers PA-C [address] [place], [place] [phone] 10/10/2022 Surgery Surgery Lesly Celaya, EXCISION, MASSES - MD back, abdomen, [address] [place] [address] 10/11/2022 Virtual Visit Pharm Clari Stoll, [place] [phone] [address] [address] 10/14/2022 Appointment Speech Therapy Anabel Chew, HEALTH TEACHER [address] [phone] 10/21/2022 Office Visit Pulmonology Obdulio Barrera MD [address] [facility] [address] [place], [place] [address] 10/25/2022 PRE VISIT ENT Charo Burton MD Previsit [address] [place], [place] [phone] 10/25/2022 Office Visit Charo Carter MD [address] [place], [place] [phone] 10/25/2022 Office Visit ENT Provider, Jeannette 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 Director Of Patient Care 10/28/2022 Appointment Speech Therapy Anabel Chew, HEALTH TEACHER [address] [phone] 11/17/2022 Appointment Speech Therapy Anabel Chew, HEALTH TEACHER [facility] [address] [facility] [address] [place], [place] [id number] 12/23/2022 Office Visit Neurology Colby Yeung MD [address] [place] [address] Scheduled Procedures Name Priority Associated Diagnoses Date/Time EXCISION, MASS, TORSO Lipoma of skin and subcuta neous 10/10/2022 7:30 AM ANESTHESIOLOGIST AND CRITICAL CARE tissue documented as of this encounter Procedures Procedure Name Priority Date/Time Associated Comments Diagnosis SURGICAL PATHOLOGY Routine 12/28/2021 9:11 AM Res ults for this EXAM ANESTHESIOLOGIST AND CRITICAL CARE procedure are i n the results section. HYSTERECTOMY, TOTAL, 12/28/2021 7:33 AM Menorrha quinten LAPAROSCOPIC ANESTHESIOLOGIST AND CRITICAL CARE Dysmenorrhea Dyspareunia in female HEMOGLOBIN STAT 12/28/2021 6:53 AM Results f or this ANESTHESIOLOGIST AND CRITICAL CARE procedure are i n the results section. TYPE AND SCREEN, STAT 12/28/2021 6:35 AM Resul ts for this ADULT ANESTHESIOLOGIST AND CRITICAL CARE procedure are i n the results section. ABO/RH TYPE AND STAT 12/28/2021 6:35 AM Result s for this SCREEN ANESTHESIOLOGIST AND CRITICAL CARE procedure are i n the results section. documented in this encounter Results Surgical Pathology Exam (12/28/2021 9:11 AM ANESTHESIOLOGIST AND CRITICAL CARE) Component Value Ref Test Analysis Performed At [facility] Method Time Signature Case Report Surgical Pathology Report ? Case: [id number] ? 12/30/2021 RH Authorizing Provider: ??Yakov Watson, ?? Collected: ? 12/28/2021 09:11 AM ? 6:34 PM LABORATOR Y ? MD ? ANESTHESIOLOGIST AND CRITICAL CARE [facility] ?? Received: ?12/28/2021 09:36 AM ? Main OR ? Pathologist: ? Daria Banuelos MD ? Specimen: ?Uterus, Cervi x, Bilateral Fallopian Tubes, UTERUS, CERVIX, AND BILATERAL FALLOPIAN ? TUBES ? Final Uterus, right fallopian tube , left fallopian tube, total hysterectomy with bilateral salpingectomy: 12/30/2021 RH El ectronically Diagnosis -Secretory pattern endometrium without hyperplasia. 6:34 PM LABORATORY signed by -Adenomyosis. ANESTHESIOLOGIST AND CRITICAL CARE Daria Banuelos, -Multiple intramural uterine leiomyomas (largest 1.2 cm). on 12/30/2021 -Negative for cervical squamous intraepi thelial lesion or glandular dysplasia. at 6:34 PM -Unremarkable bilateral fallopian tubes (status post tubal l igation). -Benign paratubal cysts, bilateral. -Negative for malignancy. Clinical Status post tubal 12/30/2021 RH Information ligation and 6:34 PM LABORATORY status post ANESTHESIOLOGIST AND CRITICAL CARE endometrial ablation in 2018. Persistent menometrorrhagia, dysmenorrhea and dyspareunia. Gross A(1). Uterus, Cervix, Bilate ral Fallopian Tubes, UTERUS, CERVIX, AND BILATERAL FALLOPIAN TUBES: 12/30/2021 RH Description The specimen is received in formalin, labeled with the patient's name, medical record number and other identifying information designated uterus, cervix, bilateral fallopian tubes. It consists of 212 6:34 PM LABORATORY g pink rubbery uterus and ce rvix (11.1 x 6.6 x 5.7 by cm) with attached previously clipped right fallopian tube and fimbria (6.2 x 0.5 x 0.5 cm), previously ligated left fallopian tube with fimbria (5.1 ANESTHESIOLOGIST AND CRITICAL CARE x 0.6 x 0.6 cm). The endome trium ranges from 0.1 to 0.3 cm in thickness. On sectioning there are multiple pink rubbery well-circumscribed intramural nodules. The largest nodule of measures up to 1.2 x 1.0 x 0.8 cm. The nodules mock ve a white rubbery nodular center with no evidence of hemorrhage, necrosis or calcifications. There is an additional area of myometrial induration with dense fibrous trabecul ar bands and cystic structur es measuring 1.4 x 1.0 x 0.8 cm. No ovarian tissue identified grossly. Clinical Science Liaison sections are submitted. Cassette 1: Anterior cervix Cassette 2: Posterior cervix Cassette 3-4 uterine wall with endometrium Cassette 5: Leiomyomas Cassette 6: Area of myometrial induration Cassette 7: Right fallopian tube Cassette 8: Left fallopian tube ([facility]) Microscopic Microscopic examination is performed. 12/30/2021 RH Description 6:34 PM LABORATORY ANESTHESIOLOGIST AND CRITICAL CARE Performing The technical 12/30/2021 Labs component of this 6:34 PM LABORATORY testing was ANESTHESIOLOGIST AND CRITICAL CARE completed at [facility] Laboratory Case Images 12/30/2021 6:34 PM LABORATORY ANESTHESIOLOGIST AND CRITICAL CARE Specimen Anatomical Collection Method Collection Time Receive d Time (Source) Location / / Volume Laterality Tissue UTERUS AND 12/28/2021 9:11 AM 9:36 FALLOPIAN TUBES, ANESTHESIOLOGIST AND CRITICAL CARE AM ANESTHESIOLOGIST AND CRITICAL CARE CS / Unknown Yakov Muniz MD LAB - BEAKER AP Performing Organization Address City/State/ZIP Code Phon [place] [address] Care Lab [address] Lab (1st floor, no room number) Hemoglobin (12/28/2021 6:53 AM ANESTHESIOLOGIST AND CRITICAL CARE) P athologist Signature Hemoglobin 12.2 11.7 - 15.7 12/28/2021 RH LABORATORY g/dL 7:24 AM ANESTHESIOLOGIST AND CRITICAL CARE Specimen Anatomical Collection Method / Collection Time Recei edil Time (Source) Location / Volume Laterality Blood STRUCTURE OF RIGHT Venipuncture / 12/28/2021 6:53 0203/2022 7:16 UPPER LIMB / Unknown AM ANESTHESIOLOGIST AND CRITICAL CARE AM ANESTHESIOLOGIST AND CRITICAL CARE Unknown Yakov Muniz MD LAB - BLOOD ORDERABLES Performing Organization Address City/[facility]/ZIP Code Phon [place] [address] Care Lab [address] Lab (1st floor, no room number) Adult Type and Screen (12/28/2021 6:35 AM ANESTHESIOLOGIST AND CRITICAL CARE) Patholo gist Method Time Signature ABO/RH(D) O POS 12/28/2021 RH BLOOD 6:15 AM ANESTHESIOLOGIST AND CRITICAL CARE BANK Antibody Negative Negative 12/28/2021 RH BLOOD Screen 6:15 AM ANESTHESIOLOGIST AND CRITICAL CARE BANK SPECIMEN [id number] 12/28/2021 RH BLOOD EXPIRATION 6:15 AM ANESTHESIOLOGIST AND CRITICAL CARE BANK DATE Specimen Anatomical Collection Method / Collection Time Recei edil Time (Source) Location / Volume Laterality Blood BLOOD SPECIMEN / Venipuncture / 12/28/2021 6:35 2021 7:15 Unknown Unknown AM ANESTHESIOLOGIST AND CRITICAL CARE AM ANESTHESIOLOGIST AND CRITICAL CARE Yaokv Muniz MD LAB - BLOOD BANK TEST ORDER Performing Organization Address City/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 Hold if patient has taken acetaminophen within 4 hours. Maximum acetaminophen dose from all sources = 75 mg/kg/day not to exceed 4 grams/day., Pre-procedure fentaNYL (PF) (SUBLIMAZE) injection 25 m cg Given 12/28/2021 10:08 AM ANESTHESIOLOGIST AND CRITICAL CARE 25 mcg 25 mcg, Intravenous, EVERY 5 MIN PRN, moderate to severe pain, Starting on Mon12/28/21 at 0935, Administer fentaNYL (SUBLIMAZE) for acute pain control. Move to HYDROmorphone (DILAUDID): - IF patient has received up to 4 doses (100 mcg) of fentaNYL (SUBLIMAZE), OR - IF severe pain (pain score greater than or equal to seven (7) or inability of patient to participate in post op recovery due to pain) AFTER 2 doses fentaNYL (SUBLIMAZE). WAIT 5 minutes AFTER last fentaNYL (SUBLIMAZE) dose before administering HYDROmorphone (DILAUDID). Postop Anesthesia Phase I only. Notify Provider to assess for uncontrolled pain or analgesic side effects. Do NOT revert back to fentanyl (SUBLIMAZE) after moving to HYDROmorphone (DILAUDID)., PACU Given 12/28/2021 9:58 AM ANESTHESIOLOGIST AND CRITICAL CARE 25 mcg fentaNYL (PF) (SUBLIMAZE) injection 25 m cg Given 12/28/2021 11:50 AM ANESTHESIOLOGIST AND CRITICAL CARE 25 mcg 25 mcg, Intravenous, EVERY 15 MIN PRN, other, acute pain while in Phase II, Starting on Mon12/28/21 at 0935, Up to a total of 100 mcg. Use as a short acting IV agent for acute pain control. Patient must be monitored a minimum of 30 minutes before leaving the facility and meet all Phase II discharge criteria., Phase ll lactated ringers infusion at 100 mL/hr, Intravenous, CONTINUOUS, Continue until IV catheter is weaned, PACU/Phase II, Starting on Mon12/28/21 at 1000, Until Mon12/28/21 at 1508 meperidine (DEMEROL) injection 12.5 mg 12.5 mg, Intravenous, EVERY 15 MIN PRN, post anesthesia shivering, Starting on Mon12/28/21 at 0935, For 2 doses, PACU/Phase II ondansetron (ZOFRAN) injection 4 mg Given 12/28/2021 10:40 AM ANESTHESIOLOGIST AND CRITICAL CARE 4 mg 4 mg, Intravenous, EVERY 30 MIN PRN, nausea, Administer over 2-5 Minutes, Starting on Mon12/28/21 at 0935, For 2 doses, MAX total dose = 8 mg, including OR dosing. If not resolved in 15 minutes, then go to step 2 [prochlorperazine (COMPAZINE), if ordered]. Irritant., PACU/Phase II ondansetron (ZOFRAN-ODT) ODT tab 4 mg 4 mg, Oral, EVERY 30 MIN PRN, nausea, St arting on Mon12/28/21 at 0935, For 2 doses, MAX total dose = 8 mg, including OR dosi ng. If not resolved in 15 minutes, then go to step 2 [prochlorperazine (COMPAZINE), if ordered]. With dry hands, peel back foil backing and gently remove tablet. Do not push ora l disintegrating tablet through foil backing. Administer immediately on tongue and oral disintegrating tablet dissolves in seconds, then swallow with saliva. Liquid not required., PACU/Phase II oxyCODONE (ROXICODONE) tablet 5 mg Given 12/28/2021 10:22 AM ANESTHESIOLOGIST AND CRITICAL CARE 5 mg 5 mg, Oral, EVERY 4 HOURS PRN, moderate to severe pain, Starting on Mon12/28/21 at 0935, Max: 5 mg for opioid-na??ve patient., PACU/Phase II prochlorperazine (COMPAZINE) injection 1 0 mg 10 mg, Intravenous, EVERY 6 HOURS PRN, nausea, vomitin g, Administer over 1-2 Minutes, Starting on Mon12/28/21 at 0935 , This is Step 2 of the nausea and vomiting protocol. If nausea not resolved in 15 minutes, notify Provider., PACU/Phase II prochlorperazine (COMPAZINE) injection 5 mg 5 mg, Intravenous, EVERY 6 HOURS PRN, nausea, vomiting , Administer over 1-2 Minutes, Starting on Mon12/28/21 at 0935 , This is Step 2 of the nausea and vomiting protocol. If nausea not resolved in 15 minutes, notify Provider., PACU/Phase II scopolamine (TRANSDERM) Patch/Med Applied 12/28/2021 7:19 AM 1 patch Behind Left Ear 72 hr patch 1 patch ANESTHESIOLOGIST AND CRITICAL CARE 1 patch, Transdermal, EVERY 72 HOURS, Administer over 72 Hours, First dose on Mon12/28/21 at 0730, Apply patch to skin, behind ear. Remove every 72 hours. DO NOT CUT PATCH. If dose is for a half patch, RN to remove only half of the backing. Each 1.5 mg patch delivers 1 mg of scopolamine. Reminder: Remove previous patch before applying new patch., Pre-procedure sodium chloride 0.9% (bag) irrigation Given 12/28/2021 9:09 AM ANESTHESIOLOGIST AND CRITICAL CARE 2,000 mLs PRN, Starting on Mon12/28/21 at 0909, Intra-procedure documented in this encounter Active and Recently Administered Medications Times are shown in ANESTHESIOLOGIST AND CRITICAL CARE. Scheduled Medication Order 12/26/2021 12/27/2021 12/28/2021 acetaminophen (TYLENOL) tablet 975 mg (COMPLETED) 625 (Given - Provider: Diandra Seth RN) 975 mg, Oral, ONCE, On Mon12/28/21 at 06 30, For 1 dose, Give within 60 min of procedure. Hold if patient has taken acetaminophen within 4 hours. Maximum acetaminophen dose from all sources = 75 mg/kg/day not to exceed 4 grams/day., Pre-procedure acetaminophen (TYLENOL) tablet 975 mg 975 mg, Oral, ONCE, On Mon12/28/21 at 16 00, For 1 dose, Administer 6 hours after pre-op dose, if given. Maximum acetaminophen dose from all sources = 75 mg/kg/day not to exceed 4 grams/day. ceFAZolin Sodium (ANCEF) injection 2 g (COMPLETED) 730 (Given - Provider: Ni Landry APRN TRIM MACHINE ADJUSTER) Routine, 2 g, Intravenous, PRE-OP/PRE-MO OCEDURE, Starting on Mon12/28/21 at 0606, For 1 dose, Give first dose within 1 hour PRIOR to incision. If patient weight is greater than or equal to 120 kg increa se dose to 3 g., Indications: Perioperative Pharmacoprophyla xis, Pre-procedure ibuprofen (ADVIL/MOTRIN) tablet 800 mg 800 mg, Oral, ONCE, On Mon12/28/21 at 16 00, For 1 dose, Administer when patient tolerating oral intake AND 6 hours after last ketorolac (TORADOL) dose, if given. Give with food. scopolamine (TRANSDERM) 72 hr patch 1 patch (CANCELED) 0719 (Patch/Med Applied - Provider: Gage Julio RN)0932 (Due: Patch/Med Removed - Provider: Angela Ramos RN - Comment: Time automatically adjusted from order being discontinued) 1 patch, Transdermal, EVERY 72 HOURS, Ad bin tripper operator over 72 Hours, First dose on Mon12/28/21 at 0730, Apply patch to skin, behind ear. Remove every 72 hours. DO NOT CUT PATCH. If dose is for a half patch, RN to remove only half of the backing. E ach 1.5 mg patch delivers 1 mg of scopolamine. Reminder: Remove previous patch before applying new patch., Pre-procedure Continuous Medication Order 12/26/2021 12/27/2021 12/28/2021 lactated ringers infusion 1000 ( Canceled Entry - Provider: Alba Generic Provider - Comment: Automatically canceled at discontinue of medication order) at 100 mL/hr, Intravenous, CONTINUOUS, C ontinue until IV catheter is weaned, PACU/Phase II, Starting on Mon12/28/21 at 1000, Until Mon12/28/21 at 1508 PRN Medication Order 12/26/2021 12/27/2021 12/28/2021 fentaNYL (PF) (SUBLIMAZE) injection 25 mcg (CANCELED) 0958 (Given - Provider: Angela Ramos RN)1008 (Given - Provider: Angela Ramso, AMINAH) 25 mcg, Intravenous, EVERY 5 MIN PRN, mo derate to severe pain, Starting on Mon12/28/21 at 0935, Administer fentaNYL (SUBLIMAZE) for acute pain control. Move to HYDROmorphone (DILAUDID): - IF patient has received up to 4 doses (100 mcg) of fen taNYL (SUBLIMAZE), OR - IF severe pain (pain score greater than or equal to seven (7) or inability of patient to participate in post op recovery due to pain) AFTE R 2 doses fentaNYL (SUBLIMAZE). WAIT 5 m inutes AFTER last fentaNYL (SUBLIMAZE) dose before administering HYDROmorphone (DILAUDID). Postop Anesthesia Phase I only. Notify Provider to assess for uncontrol led pain or analgesic side effects. Do N OT revert back to fentanyl (SUBLIMAZE) after moving to HYDROmorphone (DILAUDID)., PACU fentaNYL (PF) (SUBLIMAZE) injection 25 mcg 1150 (Given - Provider: Angela Ramos RN) 25 mcg, Intravenous, EVERY 15 MIN PRN, o ther, acute pain while in Phase II, Starting on Mon12/28/21 at 0935, Up to a total of 100 mcg. Use as a short acting IV agent for acute pain control. Patient must be monitored a minimum of 30 minutes be fore leaving the facility and meet all Phase II discharge criteria., Phase ll meperidine (DEMEROL) injection 12.5 mg 12.5 mg, Intravenous, EVERY 15 MIN PRN, post anesthesia shivering, Starting on Mon12/28/21 at 0935, For 2 doses, PACU/Phase II ondansetron (ZOFRAN) injection 4 mg(Linked Group 1) 1040 (Given - Provider: Kimberly Guy RN) 4 mg, Intravenous, EVERY 30 MIN PRN, jorge sea, Administer over 2-5 Minutes, Starting on Mon12/28/21 at 0935, For 2 doses, MAX total dose = 8 mg, including OR dosing. If not resolved in 15 minutes, then go to step 2 [prochlorperazine (COMPAZINE), if ordered]. Irritant., PACU/Phase II ondansetron (ZOFRAN-ODT) ODT tab 4 mg(Linked Group 1) 1040 (See Alternative - Provider: Kimberly Guy RN) 4 mg, Oral, EVERY 30 MIN PRN, nausea, St arting on Mon12/28/21 at 0935, For 2 doses, MAX total dose = 8 mg, including OR dosing. If not resolved in 15 minutes, then go to step 2 [prochlorperazine (COMPAZ INE), if ordered]. With dry hands, peel back foil backing and gently remove tablet. Do not push oral disintegrating tablet through foil backing. Administer immediately on tongue and oral disintegrating tablet dissolves in seconds, then swallo w with saliva. Liquid not required., PACU/Phase II oxyCODONE (ROXICODONE) tablet 5 mg 1022 (Given - Provider: Kimberly Guy RN) 5 mg, Oral, EVERY 4 HOURS PRN, moderate to severe pain, Starting on Mon12/28/21 at 0935, Max: 5 mg for opioid-na??ve patient., PACU/Phase II oxyCODONE (ROXICODONE) tablet 5 mg 5 mg, Oral, ONCE PRN, other, pain contro l or improvement in physical function.??, Starting on Mon12/28/21 at 0954, For 1 dose, Hold oral PRN dose for analgesic side effects. Notify provider to assess fo r uncontrolled pain or analgesic side ef fects. Hold while on IV LEAN COACH or with regular IV opioid dosing. prochlorperazine (COMPAZINE) injection 10 mg(Linked Group 2) 10 mg, Intravenous, EVERY 6 HOURS PRN, n ausea, vomiting, Administer over 1-2 Minutes, Starting on Mon12/28/21 at 0935, This is Step 2 of the nausea and vomiting protocol. If nausea not resolved in 15 minutes, notify Provider., PACU/Phase II prochlorperazine (COMPAZINE) injection 5 mg(Linked Group 2) 5 mg, Intravenous, EVERY 6 HOURS PRN, na usea, vomiting, Administer over 1-2 Minutes, Starting on Mon12/28/21 at 0935, This is Step 2 of the nausea and vomiting protocol. If nausea not resolved in 15 minutes, notify Provider., PACU/Phase II sodium chloride 0.9% (bag) irrigation (CANCELED) 0909 (Given - Provider: Yakov Muniz MD) PRN, Starting on Mon12/28/21 at 0909, Intra-procedure Linked Groups Order Group 1: ondansetron (ZOFRAN-ODT) ODT tab 4 mgJump to med 4 mg, Oral, EVERY 30 MIN PRN, nausea, St arting on Mon12/28/21 at 0935, For 2 doses
MAX total dose = 8 mg, including OR dosing. If not resolved in 15 minutes, then go to step 2 [prochlorperazine (COMPAZINE), if ordered]. With dry hands, peel back foil backing and gently remove tablet. Do not push oral disintegrating tablet through foil backing. Administer immediately on tongue and ora l disintegrating tablet dissolves in sec onds, then swallow with saliva. Liquid not required.
PACU/Phase II Or ondansetron (ZOFRAN) injection 4 mgJump to med 4 mg, Intravenous, EVERY 30 MIN PRN, jorge sea, Administer over 2-5 Minutes, Starting on Mon12/28/21 at 0935, For 2 doses
MAX total dose = 8 mg, including OR dosing. If not resolved in 15 minutes, then go to step 2 [prochlorperazine (CO MPAZINE), if ordered]. Irritant.
PACU/Phase II Group 2: prochlorperazine (COMPAZINE) injection 5 mgJump to med 5 mg, Intravenous, EVERY 6 HOURS PRN, na usea, vomiting, Administer over 1-2 Minutes, Starting on Mon12/28/21 at 0935
This is Step 2 of the nausea and vomiting protocol. If nausea not resolved in 15 minutes, notify Provider.
PACU/Phase II Or prochlorperazine (COMPAZINE) injection 10 mgJump to med 10 mg, Intravenous, EVERY 6 HOURS PRN, n ausea, vomiting, Administer over 1-2 Minutes, Starting on Mon12/28/21 at 0935
This is Step 2 of the nausea and vomiting protocol. If nausea not resolved in 15 minutes, notify Provider.
PACU/Phase II documented in this encounter Additional Health Concerns Assessment Noted Time PHQ-9 Depression Total Score: 06/28/2021 7:03 AM CD T documented as of this encounter Care Teams Driller And Broacher Relationship Specialty Start Date End Date Aydee Burton, PCP - General Nurse Practitioner - 05/17/21 IRON SETTER CONTINUOUS PROCESS COFFEE ROASTER Family [address] [place], [place] [phone] Aydee Burton, Assigned PCP 04/28/21 IRON SETTER CONTINUOUS PROCESS COFFEE ROASTER [address] [place], [place] [phone] Louisa Hood, Assigned Neuroscience 07/11/21 IRON SETTER CONTINUOUS PROCESS COFFEE ROASTER Provider [address] [place], [place] [phone] Se Levy, Lead Traffic Or System Dispatcher 08/05/21 05/12/22 CUSTOMER SERVICE TECHNICIANClari Ordonez Pharmacist Pharmacist 08/06/21 06/07/22 Jocelyn, [facility] [address] [place], [place] [phone] [place], Assigned Sleep 08/01/21 Angel Turcios, Provider [address] [place], [place] [phone] Lesly Celaya MD Assigned Surgical 09/05/21 [address] Provider [place], [place] [phone] Tawana Patel MA [facility] 09/30/21 Worker Yakov Muniz Assigned OBGYN 11/07/21 MD Onesimo Provider [address] [place], [place] [phone] Mago Swift, [facility] Lead Traffic Or System Dispatcher Title Lawyer - 08/05/21 Clinical documented as of this encounter
--- OUTSIDE RECORDS SUMMARY | 2022-09-21 04:12 | XMS_ITS | Encounter Summary ---
:1980 Author Organization [place] Address [address] [place] [address] Care Team Providers Name Role Phone Aydee Burton STENOCAPTIONER SOLAR PANEL TECHNICIAN Primary Care Provider Aydee Burton STENOCAPTIONER SOLAR PANEL TECHNICIAN Unavailable [phone] Louisa Hood STENOCAPTIONER SOLAR PANEL TECHNICIAN Unavailable [phone] Se Levy EXPORT CLERK Unavailable Unavailable Clari Ruiz [facility] Unavailable [phone] Angel Hannah MD Unavailable Lesly Celaya MD Unavailable Tawana Patel MA Unavailable Unavailable Yakov Muniz MD Unavailable [phone] Mago Swift AUTOMOBILE MECHANIC MOTOR Unavailable Reason for Visit Auth/Cert Specialty Diagnoses / Procedures Referred By Contact Refer red To Contact Surgery Diagnoses Menorrhagia Dysmenorrhea Dyspareunia in female Menorrhagia [N92.0] Dysmenorrhea [N94.6] Dyspareunia in female [N94.10] Rh Periop Services Procedures ZZC LAPAROSCOPY W TOT HYSTERECT UTERUS 250 GRAM OR LESS ZZC LAPAROSCOPY TOTAL HYSTERECTOMY UTERUS > 250 GRAM TOTAL LAPAROSCOPIC HYSTERECTOMY [address] [place], [place] [address] Phone: Fax: Referral ID Status Reason Start Date Expiration Date Visits Requ ested Visits Authorized [id number] 1 1 Encounter Details Date Type Department Care Team Description 12/28/2021 [facility] Yakov Muniz S/P laparoscopic Encounter Pasquale Echols MD hysterectomy PreOP/PostOP [address] (Primary Dx) [address] [place] [place] [address] [address] [place], [place] [phone] (Wo rk) [address] [phone] Social History Tobacco Use Types Packs/Day Years [...] How often do you attend mormonism or sabianist services? Never 08/05/2021 Do you [...] at Date Recorded Female 11/09/2021 7:53 PM ODD PIECE CHECKER COVID-19 Exposure Response Date Recorded In the last month, have you been in contact with No / Unsure 12/28/2021 5:49 AM ODD PIECE CHECKER someone who was confirmed or suspected to have Coronavirus / COVID-19? documented as of this encounter Last Filed Vital Signs Vital Sign Reading Time Taken Comments Blood Pressure 122/82 12/28/2021 12:40 PM ODD PIECE CHECKER Pulse 96 12/28/2021 12:40 PM ODD PIECE CHECKER Temperature 36.3 ??C (97.4 ??F) 12/28/2021 12:40 PM ODD PIECE CHECKER Respiratory Rate 15 12/28/2021 12:40 PM ODD PIECE CHECKER Oxygen Saturation 92% 12/28/2021 12:40 PM ODD PIECE CHECKER Inhaled Oxygen Concentration - - Weight 92.2 kg (203 lb 4.8 oz) 12/28/2021 6:22 AM ODD PIECE CHECKER Height 170.2 cm (5' 7) 12/28/2021 6:22 AM ODD PIECE CHECKER Body Mass Index 31.84 12/28/2021 6:22 AM ODD PIECE CHECKER documented in this encounter Discharge Instructions Discharge InstructionsAngela Ramos RN - 12/28/2021 11:36 AM ODD PIECE CHECKER GENERAL ANESTHESIA OR SEDATION ADULT DISCHARGE INSTRUCTIONS [...] DR. YAKOV MUNIZ M.D. CLINIC PHONE NUMBER: [phone]. INDIAN ESTHETICIAN SPA PIECE CHECKER documented in this encounter Medications at Time [...] 50 mcg mouth daily (2000 units) tablet ogtduihh-ifvelmcgc-zfexne Place 3 drops into 10 mL 0 12/31/2021 ortisone (CORTISPORIN) the right ear 4 3.5-18704-5 otic times daily for 7 solutionIndications: days [...] the patient. There are no significant changes PIECE CHECKER Source Note - Nasim Milton MD - 12/24/2021 2:00 PM ODD PIECE CHECKER SUBJECTIVE: Marta Hawkins is a 41 year [...] otitis externa, right (primary encounter diagnosis) Plan: nrdobwks-bubkakzmr-heeitixuuzjeva (CORTISPORIN) 3.5-46427-4 otic solution Refrain from using Q-tips in ear canal. Okay for tylenol for discomfort. RX cortisporin otic drops for right otitis externa. Reassurance given that otitis externa infection should not delay upcoming surgery. Follow up with primary provider if no improvement of symptoms in 1 week Nasim Milton MD December 24, 2021 2:28 PM PIECE CHECKER documented in this encounter Miscellaneous Notes Op Note - Yakov Muniz MD - 12/28/2021 9:54 AM CST Procedure Date: 12/28/2021 PREOPERATIVE DIAGNOSES: 1. Menometrorrhagia. 2. Dysmenorrhea. 3. Dyspareunia. POSTOPERATIVE DIAGNOSES: 1. Menometrorrhagia. 2. Dysmenorrhea. 3. Dyspareunia. PROCEDURE: Total laparoscopic hysterectomy with bilateral salpingectomy. SURGEON: Yakov Green M.D. INSURANCE PROCESSING CLERK: Rico Osborne M.D. ANESTHESIA: General. INDICATIONS FOR PROCEDURE: Marta Hawkins is a 41-year-old female, para 6 with [...] ILANA Name: MARTA HAWKINS MRN: [id number] Account: [id number] : 1980 Procedure Date: 12/28/2021 Document: [id number] PIECE CHECKER Brief Op Note - Yakov Muniz MD - 12/28/2021 5:50 AM CST [facility] Brief Operative Note Pre-operative diagnosis: Menorrhagia [...] Filshie clip not seen. Normal upper abdomen PIECE CHECKER documented in this encounter Plan of Treatment Upcoming Encounters Date Type Specialty Care Team Description 09/26/2022 Appointment Speech Therapy Obdulio Barrera MD [address] [facility] [address] [place], [place] [address] Anabel Chew, TUBE CUTTER OPERATOR [place] [id number] [facility] [address] [place], [place] [address] 09/27/2022 Therapy Visit Physical Therapy Luisana Watkins, PT [address] [place] [address] 09/29/2022 Virtual Visit Pain & Palliative Marilia Deluna, [facility] PhD [address] [place], [place] [phone] 09/30/2022 Office Visit Family Practice Aydee Burton, STENOCAPTIONER SOLAR PANEL TECHNICIAN [address] [place], [place] [address] 10/03/2022 Therapy Visit Physical Therapy Una Reardon, PT [address] [place] [phone] 10/10/2022 Hospital Encounter Surgery Lesly Celaya MD [address] [place] [address] 10/10/2022 Office Visit Surgery Lesly Celaya MD [address] [place] [address] Ninoska Flowers PA-C [address] [facility] [address] [place] [address] 10/10/2022 Surgery Surgery Lesly Celaya, EXCISION, MASSES - MD back, abdomen, [address] extremity [place], [place] [phone] 10/11/2022 Virtual Visit Clari Su, [facility] [address] [place] [id number] [place] [address] 10/14/2022 Appointment Speech Therapy Anabel Chew, TUBE CUTTER OPERATOR [address] [phone] 10/21/2022 Office Visit Pulmonology Obdulio Barrera MD [address] [phone] 10/25/2022 PRE VISIT ENT Charo Burton MD Previsit [address] [place] [phone] 10/25/2022 Office Visit ENT Charo Burton MD [address] [place] [phone] 10/25/2022 Office Visit ENT Provider, 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 Clinical Supervisor 10/28/2022 Appointment Speech Therapy Anabel Chew SLP [address] [address] 11/17/2022 Appointment Speech Therapy Anabel Chew SLP [address] [phone] 12/23/2022 Office Visit Neurology Colby Yeung MD [address] [place] [address] Scheduled Procedures Name Priority Associated Diagnoses Date/Time EXCISION, MASS, TORSO Lipoma of skin and subcuta neous 10/10/2022 7:30 AM ODD PIECE CHECKER tissue documented as of this encounter Procedures Procedure Name Priority Date/Time Associated Comments Diagnosis SURGICAL PATHOLOGY Routine 12/28/2021 9:11 AM Res ults for this EXAM ODD PIECE CHECKER procedure are i n the results section. HYSTERECTOMY, TOTAL, 12/28/2021 7:33 AM Menorrha quinten LAPAROSCOPIC ODD PIECE CHECKER Dysmenorrhea Dyspareunia in female HEMOGLOBIN STAT 12/28/2021 6:53 AM Results f or this ODD PIECE CHECKER procedure are i n the results section. TYPE AND SCREEN, STAT 12/28/2021 6:35 AM Resul ts for this ADULT ODD PIECE CHECKER procedure are i n the results section. ABO/RH TYPE AND STAT 12/28/2021 6:35 AM Result s for this SCREEN ODD PIECE CHECKER procedure are i n the results section. documented in this encounter Results Surgical Pathology Exam (12/28/2021 9:11 AM ODD PIECE CHECKER) Component Value Ref Test Analysis Performed At [facility] Range Method Time Signature Case Report Surgical Pathology Report ? Case: [id number] ? 12/30/2021 Authorizing Provider: ??Yakov Watson, ?? Collected: ? 12/28/2021 09:11 AM ? 6:34 PM LABORATOR Y ? MD ? ODD PIECE CHECKER Ordering Location: ? [facility] ?? Received: ?12/28/2021 09:36 AM ? Main OR ? Pathologist: ? Daria Banuelos MD ? Specimen: ?Uterus, Cervi x, Bilateral Fallopian Tubes, UTERUS, CERVIX, AND BILATERAL FALLOPIAN ? TUBES ? Final Uterus, right fallopian tube , left fallopian tube, total hysterectomy with bilateral salpingectomy: 12/30/2021 RH El ectronically Diagnosis -Secretory pattern endometrium without hyperplasia. 6:34 PM LABORATORY signed by -Adenomyosis. ODD PIECE CHECKER Daria Banuelos, -Multiple intramural uterine leiomyomas (largest 1.2 cm). on 12/30/2021 -Negative for cervical squamous intraepi thelial lesion or glandular dysplasia. at 6:34 PM -Unremarkable bilateral fallopian tubes (status post tubal l igation). -Benign paratubal cysts, bilateral. -Negative for malignancy. Clinical Status post tubal 12/30/2021 RH Information ligation and 6:34 PM LABORATORY status post ODD PIECE CHECKER endometrial ablation in 2018. Persistent menometrorrhagia, dysmenorrhea and dyspareunia. Gross A(1). Uterus, Cervix, Bilate ral Fallopian Tubes, UTERUS, CERVIX, AND BILATERAL FALLOPIAN TUBES: 12/30/2021 Description The specimen is received in formalin, [...] ligated left fallopian tube with fimbria (5.1 ODD PIECE CHECKER x 0.6 x 0.6 cm). The endome [...] 0.8 cm. No ovarian tissue identified grossly. Executive Staff Assistant sections are submitted. Cassette 1: Anterior cervix Cassette 2: Posterior cervix Cassette 3-4 uterine wall with endometrium Cassette 5: Leiomyomas Cassette 6: Area of myometrial induration Cassette 7: Right fallopian tube Cassette 8: Left fallopian tube (FLORES [facility]) Microscopic Microscopic examination is performed. 12/30/2021 Description 6:34 PM LABORATORY ODD PIECE CHECKER Performing The technical 12/30/2021 Labs component of this 6:34 PM LABORATORY testing was ODD PIECE CHECKER completed at [facility] Laboratory Case Images 12/30/2021 6:34 PM LABORATORY ODD PIECE CHECKER Specimen Anatomical Collection Method Collection Time Receive d Time (Source) Location / / Volume Laterality Tissue UTERUS AND 12/28/2021 9:11 AM 9:36 FALLOPIAN TUBES, ODD PIECE CHECKER AM ODD PIECE CHECKER CS / Unknown Yakov BREAUX - DAHIANA JORDAN Performing Organization Address City/State/ZIP Code Phon [place] [address] Care Lab [address] Lab (1st floor, no room number) Hemoglobin (12/28/2021 6:53 AM ODD PIECE CHECKER) P athologist Signature Hemoglobin 12.2 11.7 - 15.7 12/28/2021 RH LABORATORY g/dL 7:24 AM ODD PIECE CHECKER Specimen Anatomical Collection Method / Collection Time Recei edli Time (Source) Location / Volume Laterality Blood STRUCTURE OF RIGHT Venipuncture / 12/28/2021 6:53 02/03/2022 7:16 UPPER LIMB / Unknown AM ODD PIECE CHECKER AM ODD PIECE CHECKER Unknown Yakov Muniz MD LAB - BLOOD ORDERABLES Performing Organization Address City/State/ZIP Code Phon [place] Number [place] [phone] Care Lab [address] Lab (1st floor, no room number) Adult Type and Screen (12/28/2021 6:35 AM ODD PIECE CHECKER) Patholo gist Method Time Signature ABO/RH(D) O POS 12/28/2021 RH BLOOD 6:15 AM ODD PIECE CHECKER BANK Antibody Negative Negative 12/28/2021 RH BLOOD Screen 6:15 AM ODD PIECE CHECKER BANK SPECIMEN [id number] 12/28/2021 RH BLOOD EXPIRATION 6:15 AM ODD PIECE CHECKER BANK DATE Specimen Anatomical Collection Method / Collection Time Recei edil Time (Source) Location / Volume Laterality Blood BLOOD SPECIMEN / Venipuncture / 12/28/2021 6:35 2021 7:15 Unknown Unknown AM ODD PIECE CHECKER AM ODD PIECE CHECKER Yakov Muniz MD LAB - BLOOD BANK TEST ORDER Performing Organization Address City/State/ZIP Code Phon e Number RH BLOOD BANK [address] [place] [address] documented in this encounter Visit Diagnoses Diagnosis [...] (TYLENOL) tablet 975 Given 12/28/2021 6:26 AM ODD PIECE CHECKER 975 mg mg 975 mg, Oral, ONCE, On Mon12/28/21 at 0630, For 1 dose, Give within 60 min of procedure. Hold if patient has taken acetaminophen within 4 hours. Maximum acetaminophen dose from all sources = 75 mg/kg/day not to exceed 4 grams/day., Pre-procedure fentaNYL (PF) (SUBLIMAZE) injection 25 m cg Given 12/28/2021 10:08 AM ODD PIECE CHECKER 25 mcg 25 mcg, Intravenous, EVERY 5 [...] HYDROmorphone (DILAUDID)., PACU Given 12/28/2021 9:58 AM ODD PIECE CHECKER 25 mcg fentaNYL (PF) (SUBLIMAZE) injection 25 m cg Given 12/28/2021 11:50 AM ODD PIECE CHECKER 25 mcg 25 mcg, Intravenous, EVERY 15 [...] injection 4 mg Given 12/28/2021 10:40 AM ODD PIECE CHECKER 4 mg 4 mg, Intravenous, EVERY 30 [...] tablet 5 mg Given 12/28/2021 10:22 AM ODD PIECE CHECKER 5 mg 5 mg, Oral, EVERY 4 [...] Left Ear 72 hr patch 1 patch ODD PIECE CHECKER 1 patch, Transdermal, EVERY 72 HOURS, Administer over 72 Hours, First dose on Mon12/28/21 at 0730, Apply patch to skin, behind ear. Remove every 72 hours. DO NOT CUT PATCH. If dose is for a half patch, RN to remove only half of the backing. Each 1.5 mg patch delivers 1 mg of scopolamine. Reminder: Remove previous patch before applying new patch., Pre-procedure documented in this encounter Active and Recently Administered Medications Times are shown in ODD PIECE CHECKER. Scheduled Medication Order 12/26/2021 12/27/2021 12/28/2021 acetaminophen [...] 730 (Given - Provider: Ni Landry APRN CRNA) Routine, 2 g, Intravenous, PRE-OP/PRE-PA OCEDURE, Starting on Mon12/28/21 at 0606, For [...] (TRANSDERM) 72 hr patch 1 patch (CANCELED) 07 (Patch/Med Applied - Provider: Gage Julio RN)0932 (Due: Patch/Med Removed - Provider: Angela Ramos RN - Comment: Time automatically adjusted from order being discontinued) 1 patch, Transdermal, EVERY 72 HOURS, Ad plant chief over 72 Hours, First dose on Mon12/28/21 [...] infusion 1000 ( Canceled Entry - Provider: Orders Generic Provider - Comment: Automatically canceled at discontinue of medication order) at 100 mL/hr, Intravenous, CONTINUOUS, C ontinue until IV catheter is weaned, PACU/Phase II, Starting on Mon12/28/21 at 1000, Until Mon12/28/21 at 1508 PRN Medication Order 12/26/2021 12/27/2021 12/28/2021 fentaNYL (PF) (SUBLIMAZE) injection 25 mcg (CANCELED) 0958 (Given - Provider: Angela Ramos RN)1008 (Given - Provider: Angela Ramos RN) 25 mcg, Intravenous, EVERY 5 MIN PRN, [...] side ef fects. Hold while on IV CYBER ANALYST or with regular IV opioid dosing. prochlorperazine [...] II sodium chloride 0.9% (bag) irrigation (CANCELED) 908 (Given - Provider: Yakov Muniz MD) PRN, [...] documented as of this encounter Care Teams Truck Service Technician Relationship Specialty Start Date End Date Aydee Burton, PCP - General Nurse Practitioner - 05/17/21 STENOCAPTIONER SOLAR PANEL TECHNICIAN Family [address] [place] [id number] Aydee Burton, Assigned PCP 04/28/21 [address]ER [address] [address] Louisa Hood, Assigned Neuroscience 07/11/21 STENOCAPTIONER SOLAR PANEL TECHNICIAN Provider [address] [place] [id number] Se Levy, Lead Metal Sander And Finisher 08/05/21 05/12/22 EXPORT CLERK Clari Ruiz Pharmacist Pharmacist 08/06/21 06/07/22 Jocelyn [facility] [address] [place] [address] [place], Assigned Sleep 08/01/21 Angel Turcios, Provider [address] [place], [place] [phone] Lesly Celaya MD Assigned Surgical 09/05/21 [address] [place] [address] Tawana Patel [facility] 09/30/21 Worker Yakov Muniz Assigned OBGYN 11/07/21 MD Onesimo Provider [address] [place], [place] [phone] Mago Swift, [facility] Lead Metal Sander And Finisher Valve Mechanic - 08/05/21 Clinical documented as of this encounter
--- OUTSIDE RECORDS SUMMARY | 2022-09-21 04:12 | XMS_ITS | Encounter Summary ---
:1980 Author Organization [facility] Address [address] [place] [address] Care Team Providers Name Role Phone Aydee Burton OVEN UNLOADER LONG CHAIN QUILLER TENDER Primary Care Provider Aydee Burton OVEN UNLOADER [employer] CHAIN QUILLER TENDER Unavailable [phone] Louisa Hood OVEN UNLOADER [employer] CHAIN QUILLER TENDER Unavailable [phone] Se Levy ELECTROCHEMIST Unavailable Unavailable Clari Ruiz [facility] Unavailable [phone] Angel Hannah MD Unavailable Lesly Celaya MD Unavailable Tawana Patel MA Unavailable Unavailable Ramses Mcpherson MD Unavailable [phone] Mago Swift CAR FRAMER Unavailable Reason for Visit Auth/Cert Specialty Diagnoses / Procedures Referred By Contact Refer red To Contact Surgery Diagnoses Menorrhagia Dysmenorrhea Dyspareunia in female Menorrhagia [N92.0] Dysmenorrhea [N94.6] Dyspareunia in female [N94.10] Rh Periop Services Procedures ZZC LAPAROSCOPY W TOT HYSTERECT UTERUS 250 GRAM OR LESS ZZC LAPAROSCOPY TOTAL HYSTERECTOMY UTERUS > 250 GRAM TOTAL LAPAROSCOPIC HYSTERECTOMY [address] [place], [place] [address] Phone: Fax: Referral ID Status Reason Start Date Expiration Date Visits Requ ested Visits Authorized [id number] 1 1 Encounter Details Date Type Department Care Team Description 12/28/2021 Anesthesia Event M [facility] Phillip Pereira, PeriOp Services [facility] [address] [place] [phone] [facility] [phone] 20 [place], [place] [address] (Wo rk) Anesthesia Record Procedure Summary Procedure Name Responsible Anesthesia Start Anesthesia Stop Anesthesiologist Time Time TOTAL LAPAROSCOPIC Phillip Pereira, DO 12/28/21 0731 12/28/21 0934 HYSTERECTOMY WITH BILATERAL SALPINGECTOMY (Bilateral: Abdomen) Events Date Time Event Comment 12/28/2021 0731 An Start 0731 Initial Antibiotic (Started) 0732 MD Present 0733 An Start Data 0734 AN REASSESS I attest that I have identified and re-evaluated the patient immediately before the induc tion of anesthesia and I am satisfied magnus t the anesthetic plan is suitable for the patient's condition and procedure. The f irst vital signs recorded are pre - induction. ELADIO Johnson NA 0736 Antibiotic Complete 0736 An Induction 0739 An Intubation 0741 MD Present 0742 Anesthesia Complete 0754 MD Present 0755 Timeout 0756 AN INCISION 0840 MD Present 0914 MD Present 0922 MD Present 0922 MD Present 0930 AN Extubation All extubation c riteria met prior to removal. 0931 an stop data 0934 An Stop Electronically s igned by LEADIO Johnson on December 28, 2021 9:34 AM Name Total midazolam 1 mg/mL 1 mg fentaNYL 50 mcg/mL 100 mcg propofol 10 mg/mL 200 mg propofol (DIPRIVAN) 10 mg/mL 336.53 mg lidocaine 1% 30 mg rocuronium 10 mg/mL 40 mg ondansetron 2 mg/mL 4 mg dexamethasone (DECADRON) 4 mg/mL 8 mg glycopyrrolate 0.2 mg/mL 1 mg neostigmine 1 mg/mL 4 mg HYDROmorphone 1 mg/mL 1 mg ceFAZolin Sodium (ANCEF) injection 2 g 2 g LR 1,000 mL Agents Name NO HELIOX O2 N2O Air Exp Sevoflurane Exp Isoflurane Exp Desflurane Exp N2O Ins Sevoflurane Ins Isoflurane Ins Desflurane O2 Auxiliary Blood No blood administrations on file. Lines, Drains, and Airways Type Details Placement Removal Incision/Surgical Site 10/12/21; 1357; 10/12/21 1357 by Bilateral; Leg; Leroy Aragon steri-strips on AMINAH Gómez mulitple lipomas Incision/Surgical Site 10/12/21; 1357; 10/12/21 1357 by Bilateral; Arm; Leroy Aragon steri-strips on AMINAH Gómez multiple lipoma excision sites Incision/Surgical Site 10/12/21; 1357; 10/12/21 1357 by Bilateral; Back; Leroy Aragoni-strip on lipoma AMINAH Gómez excision site Incision/Surgical Site 12/28/21; 0906; 12/28/21 0906 by Vagina; peripad Angle Bustillos RN Incision/Surgical Site 12/28/21; 0906; 12/28/21 0906 by Bilateral; Abdomen; Angle Bustillos steris and bandaids RN x3, 2x2 Peripheral IV 12/28/21; 0634; 20 G; 12/28/21 0634 by 12/28/21 1303 by BD; Left, Posterior; Daniela Miller, Angela Handley, Hand; Chlorhexidine; RN None; Tolerated well ETT Placement Date: 12/28/21749 by 12/28/21929 b y 12/28/21; Placement Ni Landry Crystal Time: 0750 (created ELADIO Espino CRNA, APRN CR NA via procedure documentation); Mask Ventilation: 1; Induction Type: Intravenous; Ease of Intubation: Easy; Technique: Direct laryngoscopy; ETT Type: Single; Tube Size: 7 mm; DL Blade Size: Machado 2; Grade View: 1; Adjucts: Stylet; Placement Person: SYSTEMS TEST ANALYST; Attempts: 1; Depth: 22 cm Urethral Catheter 12/28/21; 0757; No; 12/28/21 0757 by 12/28/21 0918 by /GI/PRESS BREAKER Pelvic Angle Bustillos, Angle Bustillos, Procedure; 16 fr RN RN documented in this encounter Social History Tobacco [...] How often do you attend anabaptism or mosque services? Never 08/05/2021 Do you [...] at Date Recorded Female 11/09/2021 7:53 PM INSTRUCTIONAL CONSULTANT COVID-19 Exposure Response Date Recorded In the last month, have you been in contact with No / Unsure 12/28/2021 5:49 AM INSTRUCTIONAL CONSULTANT someone who was confirmed or suspected to have Coronavirus / COVID-19? documented as of this encounter OR Notes Anesthesia Postprocedure Evaluation - Tye Burton MD - 12/28/2021 1:40 PM CST Patient: Marta Hill Procedure: Procedure(s): TOTAL LAPAROSCOPIC HYSTERECTOMY WITH BILATERAL SALPINGECTOMY Diagnosis:Menorrhagia [N92.0] Dysmenorrhea [N94.6] Dyspareunia in female [N94.10] Diagnosis Additional Information: No value filed. Anesthesia Type: General Note: Disposition: Outpatient Postop Pain Control: Uneventful Sign Out: Well controlled pain PONV: No Neuro/Psych: Uneventful Sign Out: Acceptable/Baseline neuro status Airway/Respiratory: Uneventful Sign Out: Acceptable/Baseline resp. status CV/Hemodynamics: Uneventful Sign Out: Acceptable CV status; No obvious hypovolemia; No obvious fluid overload Other NRE: NONE DID A NON-ROUTINE EVENT OCCUR? No Last vitals: Vitals Value Taken Time BP 126/69 12/28/21 1115 Temp 98 ??F (36.7 ??C) 12/28/21 1115 Pulse 96 12/28/21 1130 Resp 11 12/28/21 1129 SpO2 94 % 12/28/21 1130 Vitals shown include unvalidated device data. Electronically Signed By: Tye Burton MD December 28, 2021 1:40 PM RUCTIONAL CONSULTANT Anesthesia Procedure Notes - Ni Landry APRN CRNA - 12/28/2021 7:50 AM CSTAssociated Order(s): Airway Airway Patient location during procedure: OR Staff - SYSTEMS TEST ANALYST: Ni Davies APRN CRNA Performed By: SYSTEMS TEST ANALYST Consent for Airway Urgency: elective Indications and Patient Condition Indications for airway management: durga-procedural Induction type:intravenous Mask difficulty assessment: 1 - vent by mask Final Airway Details Final airway type: endotracheal airway Successful airway: ETT - single Endotracheal Airway Details ETT size (mm): 7.0 Cuffed: yes Successful intubation technique: direct laryngoscopy DL Blade Type: Machado 2 Grade View of Cords: 1 Adjucts: stylet Position: Right Measured from: gums/teeth Secured at (cm): 22 Bite block used: None Post intubation assessment Placement verified by: capnometry, equal breath sounds and chest rise Number of attempts at approach: 1 Number of other approaches attempted: 0 Secured with: plastic tape Ease of procedure: easy Dentition: Intact RUCTIONAL CONSULTANT Anesthesia Preprocedure Evaluation - Phillip Pereira, DO - 12/28/2021 6:56 AM CST Anesthesia Pre-Procedure Evaluation Patient: Marta Hill : 1980 Preoperative Diagnosis: Menorrhagia [N92.0] Dysmenorrhea [N94.6] Dyspareunia in female [N94.10] Procedure : Procedure(s): TOTAL LAPAROSCOPIC HYSTERECTOMY Past Medical History: Diagnosis Date ??? Depressive [...] GENITOURINARY SURGERY Tubal ligation and ablasion ??? PRESS BREAKER SURGERY not sure tubal ligation and ablasion ? ? HEAD & NECK SURGERY Sinus ??? ORTHOPEDIC SURGERY 2020 radial head fracture 3 screws, left elbow ??? RADIOFREQUENCY ABLATION, UTERINE 2018 Allergies Allergen Reactions ??? Amoxicillin Rash Social History Tobacco Use ??? Smoking status: Never Smoker ??? Smokeless tobacco: Never Used Substance Use Topics ??? Alcohol use: Not Currently Comment: None for 1.5 personal choice. Family hx. Wt Readings from Last 1 Encounters: 12/28/21 92.2 kg (203 lb 4.8 oz) Anesthesia Evaluation ROS/MED HX ENT/Pulmonary: (+) sleep apnea, asthma Neurologic: - neg neurologic ROS Cardiovascular: - neg cardiovascular ROS (+) hypertension----- METS/Exercise Tolerance: Hematologic: - neg hematologic ROS Musculoskeletal: - neg musculoskeletal ROS GI/Hepatic: - neg GI/hepatic ROS Renal/Genitourinary: - neg Renal ROS Endo: Comment: .Body mass index is 31.84 kg/m??. Psychiatric/Substance Use: - neg psychiatric ROS Infectious Disease: - neg infectious disease ROS Malignancy: - neg malignancy ROS Other: Comment: .Lab Test 08/30/21 05/17/21 1206 0803 WBC 6.3 5.2 HGB 13.2 12.9 MCV 97 94 PLT 302 277 INR 0.85 -- Lab Test 10/12/21 05/17/21 1122 0803 NA -- 139 POTASSIUM -- 3.6 CHLORIDE -- 107 CO2 -- 26 BUN -- 12 CR -- 0.77 ANIONGAP -- 6 ROSIO -- 8.8 GLC 92 95 - neg other ROS Physical Exam Airway Mallampati: II Neck ROM: full Respiratory Devices and Support Dental Cardiovascular cardiovascular exam normal Rhythm and rate: regular Pulmonary pulmonary exam normal OUTSIDE LABS: CBC: Lab Results Component Value Date WBC 6.3 08/30/2021 WBC 5.2 05/17/2021 HGB 13.2 08/30/2021 HGB 12.9 05/17/2021 HCT 41.2 08/30/2021 HCT 38.7 05/17/2021 PLT 302 08/30/2021 PLT 277 05/17/2021 BMP: Lab Results Component Value Date NA 139 05/17/2021 POTASSIUM 3.6 05/17/2021 CHLORIDE 107 05/17/2021 CO2 26 05/17/2021 BUN 12 05/17/2021 CR 0.77 05/17/2021 GLC 92 10/12/2021 GLC 95 05/17/2021 COAGS: Lab Results Component Value Date PTT 29 08/30/2021 INR 0.85 08/30/2021 POC: Lab Results Component Value Date HCG Negative 12/22/2021 HEPATIC: Lab Results Component Value Date ALBUMIN 4.0 06/11/2021 PROTTOTAL 7.5 06/11/2021 ALT 35 06/11/2021 AST 20 06/11/2021 GGT 109 (H) 06/11/2021 ALKPHOS 91 06/11/2021 BILITOTAL 0.4 06/11/2021 OTHER: Lab Results Component Value Date ROSIO 8.8 05/17/2021 TSH 1.65 05/17/2021 CRP <2.9 05/17/2021 SED 9 05/17/2021 Anesthesia Plan ASA Status: 2 Anesthesia Type: General. - Airway: ETT Induction: Intravenous, Propofol. Maintenance: Balanced. Consents Anesthesia Plan(s) and associated risks, benefits, and realistic alternatives discussed. Questions answered and patient/medical field representative(s) expressed understanding. - Discussed: - Discussed with: Patient Postoperative Care Pain management: IV analgesics, Oral pain medications, Multi-modal analgesia. PONV prophylaxis: Ondansetron (or other 5HT-3), Dexamethasone or Solumedrol Comments: Phillip Pereira DO RUCTIONAL CONSULTANT documented in this encounter Miscellaneous Notes Anesthesia Care Transfer Note - Ni Landry APRN CRNA - 12/28/2021 9:35 AM CST Patient: Marta Hill Procedure: Procedure(s): TOTAL LAPAROSCOPIC HYSTERECTOMY WITH BILATERAL SALPINGECTOMY Diagnosis: Menorrhagia [N92.0] Dysmenorrhea [N94.6] Dyspareunia in female [N94.10] Diagnosis Additional Information: No value filed. Anesthesia Type: General Note: Oropharynx: oropharynx clear of all foreign objects and spontaneously breathing Level of Consciousness: drowsy Oxygen Supplementation: face mask Level of Supplemental Oxygen (L/min / FiO2): 6 Independent Airway: airway patency satisfactory and stable Dentition: dentition unchanged Vital Signs Stable: post-procedure vital signs reviewed and stable Report to RN Given: handoff report given Patient transferred to: PACU Handoff Report: Identifed the Patient, Identified the Reponsible Provider, Reviewed the pertinent medical history, Discussed the surgical course, Reviewed Intra-OP anesthesia mangement and issues during anesthesia, Set expectations for post-procedure period and Allowed opportunity for questions and acknowledgement of understanding Vitals: Vitals Value Taken Time BP 121/70 12/28/21 0932 Temp Pulse 98 12/28/21 0934 Resp 13 12/28/21 0934 SpO2 100 % 12/28/21 0934 Vitals shown include unvalidated device data. Electronically Signed By: Ni Davies APRN CRNA December 28, 2021 9:35 AM RUCTIONAL CONSULTANT documented in this encounter Plan of Treatment Upcoming Encounters Date Type Specialty Care Team Description 09/26/2022 Appointment Speech Therapy Obdulio Barrera MD [address] [facility] [address] [place], [place] [address] Anabel Chew, PRIEST [place] [phone] [facility] [address] [place] [address] 09/27/2022 Therapy Visit Physical Therapy Luisana Watkins, PT [address] [place] [address] 09/29/2022 Virtual Visit Pain & Palliative Marilia Deluna, [facility] PhD [address] [place], [place] [phone] 09/30/2022 Office Visit Family Practice Aydee Burton, OVEN UNLOADER LONG CHAIN QUILLER TENDER [address] [place] [address] 10/03/2022 Therapy Visit Physical Therapy Una Reardon, PT [address] [place] [address] 10/10/2022 Hospital Encounter Surgery Lesly Celaya MD [address] [place], [place] [phone] 10/10/2022 Office Visit Surgery Lesly Celaya MD [address] [place] [address] Ninoska Flowers PA-C [address] [place] [address] 10/10/2022 Surgery Surgery Lesly Celaya, EXCISION, MASSES - MD back, abdomen, [address] right [place] [address] 10/11/2022 Virtual Visit Clari Su, [facility] [address] [place] [address] 10/14/2022 Appointment Speech Therapy Anabel Chew, PRIEST [address] [phone] 10/21/2022 Office Visit Pulmonology Obdulio Barrera MD [address] [address] 10/25/2022 PRE VISIT ENT Charo Burton MD Previsit [address] [place], [place] [address] 10/25/2022 Office Visit ENT Charo Burton MD [address] [place], [place] [address] 10/25/2022 Office Visit ENT Provider, 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 Cadmium Plater 10/28/2022 Appointment Speech Therapy Anabel Chew, CELINE [address] [phone] 11/17/2022 Appointment Speech Therapy Anabel Chew, PRIEST [address] [phone] 12/23/2022 Office Visit Neurology Colby Yeung MD [address] [id number] Scheduled Procedures Name Priority Associated Diagnoses Date/Time EXCISION, MASS, TORSO Lipoma of skin and subcuta neous 10/10/2022 7:30 AM INSTRUCTIONAL CONSULTANT tissue documented as of this encounter Procedures Procedure Name Priority Date/Time Associated Comments Diagnosis ANE AIRWAY ETT Routine 12/28/2021 7:50 AM Results for this PERFORMABLE INSTRUCTIONAL CONSULTANT procedure are i n the results section. documented in this encounter Results ANE AIRWAY ETT PERFORMABLE (12/28/2021 7:50 AM INSTRUCTIONAL CONSULTANT) Narrative Ni Landry APRN SYSTEMS TEST ANALYST - 12/28 7:50 AM INSTRUCTIONAL CONSULTANT Ni Davies APRN SYSTEMS TEST ANALYST ? 12/28/2021 ??7:50 AM Airway ? Patient location during procedure : OR Staff - ? SYSTEMS TEST ANALYST: Ni Davies APRN CRNA ? Performed By: SYSTEMS TEST ANALYST Consent for Airway ? Urgency: elective Indications and Patient Condition ? Indications for airway management : durga-procedural ? Induction type:intravenous ? Mask difficulty assessment: 1 - v ent by mask Final Airway Details ? Final airway type: endotracheal a irway ? Successful airway: ETT - single Endotracheal Airway Details ? ETT size (mm): 7.0 ? Cuffed: yes ? Successful intubation technique: direct laryngoscopy ? DL Blade Type: Machado 2 ? Grade View of Cords: 1 ? Adjucts: stylet ? Position: Right ? Measured from: gums/teeth ? Secured at (cm): 22 ? Bite block used: None Post intubation assessment ? Placement verified by: capnometry , equal breath sounds and chest rise ? Number of attempts at approach: 1 ? Number of other approaches attemp mike: 0 ? Secured with: plastic tape ? Ease of procedure: easy ? Dentition: Intact Phillip Pereira DO [place] ANESTHESIA documented in this encounter Visit Diagnoses Not on filedocumented in this encounter Administered Medications Inactive Administered Medications - up to 3 most recent administrations Medication Order MAR Action Action Date Dose Rate Site ceFAZolin Sodium (ANCEF) injection 2 Given 12/28/2021 7:31 AM CS T 2 g g Routine, 2 g, Intravenous, PRE-OP/PRE-PROCEDURE, Starting on Mon12/28/21 at 0606, For 1 dose, Give first dose within 1 hour PRIOR to incision. If patient weight is greater than or equal to 120 kg increase dose to 3 g., Indications: Perioperative Pharmacoprophylaxis, Pre-procedure dexamethasone (DECADRON) injection Given 12/28/2021 7:36 AM INSTRUCTIONAL CONSULTANT 8 mg Intravenous, PRN, Administer over 1 Minutes, Starting on Mon12/28/21 at 0736, Anesthesia Intra-op fentaNYL (PF) (SUBLIMAZE) injection Given 12/28/2021 7:36 AM INSTRUCTIONAL CONSULTANT 100 mcg Intravenous, PRN, Administer over 3-5 Minutes, Starting on Mon12/28/21 at 0736, Anesthesia Intra-op glycopyrrolate (ROBINUL) injection Given 12/28/2021 9:15 AM INSTRUCTIONAL CONSULTANT 0.8 mg Intravenous, PRN, Administer over 1-2 Minutes, Starting on Mon12/28/21 at 0736, Anesthesia Intra-op Given 12/28/2021 7:36 AM INSTRUCTIONAL CONSULTANT 0.2 mg HYDROmorphone (DILAUDID) injection Given 12/28/2021 8:08 AM INSTRUCTIONAL CONSULTANT 1 mg Intravenous, PRN, Starting on Mon12/28/21 at 0808, Anesthesia Intra-op lactated ringers infusion New Bag 12/28/2021 9:23 AM INSTRUCTIONAL CONSULTANT Intravenous, CONTINUOUS PRN, Anesthesia Intra-op, Starting on Mon12/28/21 at 0710, Until Mon12/28/21 at 0934 New Bag 12/28/2021 7:10 AM INSTRUCTIONAL CONSULTANT lidocaine 1 % injection Given 12/28/2021 7:36 AM INSTRUCTIONAL CONSULTANT 30 mg Intravenous, PRN, Starting on Mon12/28/21 at 0736, Anesthesia Intra-op midazolam (VERSED) injection Given 12/28/2021 7:31 AM INSTRUCTIONAL CONSULTANT 1 mg Intravenous, Administer over 2 Minutes, PRN, Starting on Mon12/28/21 at 0731, Anesthesia Intra-op neostigmine (PROSTIGMINE) injection Given 12/28/2021 9:15 AM INSTRUCTIONAL CONSULTANT 4 mg Intravenous, PRN, Starting on Mon12/28/21 at 0915, Anesthesia Intra-op ondansetron (ZOFRAN) injection Given 12/28/2021 9:17 AM INSTRUCTIONAL CONSULTANT 4 mg Intravenous, PRN, Administer over 2-5 Minutes, Starting on Mon12/28/21 at 0917, Anesthesia Intra-op propofol (DIPRIVAN) injection 10 mg/mL v ial Given 12/28/2021 7:36 AM INSTRUCTIONAL CONSULTANT 200 mg Intravenous, PRN, Starting on Mon12/28/21 at 0736, Anesthesia Intra-op propofol (DIPRIVAN) injection New Bag 12/28/2021 7:56 AM 50 mc g/kg/min 27.66 mL/hr 10 mg/mL vial INSTRUCTIONAL CONSULTANT Intravenous, CONTINUOUS PRN, Starting on Mon12/28/21 at 0756, Anesthesia Intra-op rocuronium injection Given 12/28/2021 7:36 AM INSTRUCTIONAL CONSULTANT 40 mg Intravenous, PRN, Starting on Mon12/28/21 at 0736, Anesthesia Intra-op documented in this encounter Additional Health Concerns Assessment Noted Time PHQ-9 Depression Total Score: 06/28/2021 7:03 AM CD T documented as of this encounter Care Teams [employer] Worker Relationship Specialty Start Date End Date Aydee Burton, PCP - General Nurse Practitioner - 05/17/21 OVEN UNLOADER LONG CHAIN QUILLER TENDER Family [address] [place] [phone] Aydee Burton, Assigned PCP 04/28/21 OVEN UNLOADER LONG CHAIN QUILLER TENDER [address] [place] [address] [phone] Louisa Hood, Assigned Neuroscience 07/11/21 OVEN UNLOADER LONG CHAIN QUILLER TENDER Provider [address] [place], [place] [phone] Se Levy, Lead Supervisor Yard 08/05/21 05/12/22 Clari Francois Pharmacist Pharmacist 08/06/21 06/07/22 JORDAN Banks [address] [place] [address] [place], Assigned Sleep 08/01/21 Angel Turcios, Provider [address] [place] [address] Lesly Celaya MD Assigned Surgical 09/05/21 [address] Provider [place], [place] [phone] Tawana Patel MA [facility] 09/30/21 Worker Ramses Mcpherson Assigned OBGYN 11/07/21 MD Onesimo Provider [address] [place], [place] [phone] Mago Swift, [facility] Lead Supervisor Yard Line Staker - 08/05/21 Clinical documented as of this encounter
--- OUTSIDE RECORDS SUMMARY | 2022-09-21 04:12 | XMS_ITS | Encounter Summary ---
:1980 Author Organization [place] Address [address] [facility] [place] [address] Care Team Providers Name Role Phone Aydee Burton HEAT TREAT INSPECTOR MACHINE FASTENER Primary Care Provider [phone] Aydee Burton HEAT TREAT INSPECTOR MACHINE FASTENER Unavailable [phone] Louisa Hood HEAT TREAT INSPECTOR MACHINE FASTENER Unavailable [phone] Se Levy CIGARETTE MACHINES MECHANIC Unavailable Unavailable Clari Ruiz [facility] Unavailable [phone] Angel Hannah MD Unavailable Lesly Celaya MD Unavailable Tawana Patel MA Unavailable Unavailable Ramses Mcpherson MD Unavailable [phone] Mago Swift TOP SPOTTER Unavailable Encounter Details Date Type Department Care Team Description 01/07/2022 Travel Social History Tobacco Use Types Packs/Day [...] How often do you attend presybeterian or latter day services? Never 08/05/2021 Do [...] been in contact with No / Unsure 01/07/2022 2:29 PM FIELD ARTILLERY FIRE CONTROL MAN someone who was confirmed or suspected to have Coronavirus / COVID-19? documented as of this encounter Plan of Treatment Upcoming Encounters Date Type Specialty Care Team Description 09/26/2022 Appointment Speech Therapy Obdulio Barrera MD 420 [facility] 276 [place], [place] [address] Anabel Chew, AIR BAG CURER [place] [id number] [facility] 396 [place], [place] [address] 09/27/2022 Therapy Visit Physical Therapy Luisana Watkins, PT [address] [place] [address] 09/29/2022 Virtual Visit Pain & Palliative Marilia Deluna Care PhD [address] [facility] [place] [address] 09/30/2022 Office Visit Family Practice Aydee Burton, HEAT TREAT INSPECTOR MACHINE FASTENER [address] [place], [place] [phone] 10/03/2022 Therapy Visit Physical Therapy David-Una Tang, PT [address] [place] [address] 10/10/2022 Hospital Encounter Surgery Lesly Celaya MD [address] [place] [address] 10/10/2022 Office Visit Surgery Lesly Celaya MD [address] [place] [address] Ninoska Flowers PA-Ynes [address] [place] [address] 10/10/2022 Surgery Surgery Lesly Celaya, EXCISION, MASSES - MD back, abdomen, [address] [place] [address] 10/11/2022 Virtual Visit Clari Su, [facility] [address] 6[address] 10/14/2022 Appointment Speech Therapy Anabel Chew, AIR BAG CURER [facility] 516 [facility] 396 [place], [place] [address] 10/21/2022 Office Visit Pulmonology Obdulio Barrera MD 420 [facility] 276 [place] [address] 10/25/2022 PRE VISIT ENT Charo Burton MD Previsit 909 [place] [address] 10/25/2022 Office Visit ENT Charo Burton MD 909 [place] [address] 10/25/2022 Office Visit ENT Provider, 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 Plumber'S Helper 10/28/2022 Appointment Speech Therapy Anabel Chew, AIR BAG CURER [address] [address] 11/17/2022 Appointment Speech Therapy Anabel Chew, AIR BAG CURER [address] 9924[address] 12/23/2022 Office Visit Neurology Colby Yeung MD [address] 651915 Scheduled Procedures Name Priority Associated Diagnoses Date/Time EXCISION, MASS, TORSO Lipoma of skin and subcuta neous 10/10/2022 7:30 AM FIELD ARTILLERY FIRE CONTROL MAN tissue documented as of this encounter Visit Diagnoses Not on filedocumented in this encounter Additional Health Concerns Assessment Noted Time PHQ-9 Depression Total Score: 22 06/28/2021 7:03 AM CD T documented as of this encounter Care Teams Clinical Nursing Intern Relationship Specialty Start Date End Date Aydee Burton, PCP - General Nurse Practitioner - 05/17/21 HEAT TREAT INSPECTOR MACHINE FASTENER Family [address] [place] [address] [phone] Aydee Burton, Assigned PCP 04/28/21 HEAT TREAT INSPECTOR [facility] [address] [place], [place] [phone] Louisa Hood, Assigned Neuroscience 07/11/21 HEAT TREAT INSPECTOR MACHINE FASTENER Provider [address] [place] [address] Se Levy, Lead Networking Engineer 08/05/21 05/12/22 [facility] Clari Ruiz Pharmacist Pharmacist 08/06/21 06/07/22 [facility] [address] [place] [address] [place], Assigned Sleep 08/01/21 Angel Turcios, Provider [address] [place] [address] Lesly Celaya MD Assigned Surgical 09/05/21 [address] [place] [address] Tawana Patel MA [facility] Health 09/30/21 Worker Ramses Mcpherson Assigned OBGYN 11/07/21 MD Onesimo Provider [address] [place] [address] Mago Swift, [facility] Lead Networking Engineer Gang Head Saw Operator - 08/05/21 Clinical documented as of this encounter
--- OUTSIDE RECORDS SUMMARY | 2022-09-21 04:12 | XMS_ITS | Encounter Summary ---
:1980 Author Organization [place] Address [address] [facility] [address] Care Team Providers Name Role Phone Aydee Burton BROTHEL KEEPER DISPATCH ASSOCIATE Primary Care Provider [phone] Aydee Burton BROTHEL KEEPER DISPATCH ASSOCIATE Unavailable [phone] Louisa Hood BROTHEL KEEPER DISPATCH ASSOCIATE Unavailable [phone] Se Levy IRON SETTER Unavailable Unavailable Clari Ruiz [facility] Unavailable [phone] Angel Hannah MD Unavailable Lesly Celaya MD Unavailable Tawana Patel MA Unavailable Unavailable Ramses Mcpherson MD Unavailable [phone] Mago Swift MARINE ENGINE DRIVER Unavailable Reason for Visit Reason Onset Date Comments Refill Request 01/12/2022 methocarbamol (ROBAX IN) 500 MG tablet Encounter Details Date Type Department Care Team Description 01/12/2022 Refill M [facility] Pain Lucas Anaya Refill Request Management Cindi Urena MD (methocarbamol [address] [address] YANY MARSHALL (ROBAXIN) 500 MG [address] [place] [address] tablet) [place] [address] [phone] Social History Tobacco Use Types Packs/Day Years [...] How often do you attend latter-day or religion services? Never 08/05/2021 Do you [...] at Date Recorded Female 11/09/2021 7:53 PM SENIOR IT RECRUITER COVID-19 Exposure Response Date Recorded In the last month, have you been in contact with No / Unsure 01/07/2022 2:29 PM SENIOR IT RECRUITER someone who was confirmed or suspected to have Coronavirus / COVID-19? documented as of this encounter Miscellaneous Notes Telephone Encounter - Lucas Anaya MD - 01/12/2022 10:28 AM SENIOR IT RECRUITER Methocarbamol refill approved. DO Terri Zheng [facility] Pain Management OR IT RECRUITER Telephone Encounter - Ashleigh Martinez - 01/12/2022 9:40 AM CST Received fax request from [facility] [phone] [facility] [address] Pharmacy requesting refill(s) for methocarbamol (ROBAXIN) 500 MG tablet Last refilled on 12/14/21 Pt last seen on 12/14/21 Next appt scheduled for None Will facilitate refill. GREGORIO Linda [facility] Pain Management Center OR IT RECRUITER documented in this encounter Plan of Treatment Upcoming Encounters Date Type Specialty Care Team Description 09/26/2022 Appointment Speech Therapy Obdulio Barrera MD 420 [facility] 276 [place], [place] [address] Anabel Chew, HEALTH TYPE TECHNICIAN [facility] 516 [facility] 396 [place] [address] 09/27/2022 Therapy Visit Physical Therapy Luisana Watkins, PT 2155 [place] [address] 09/29/2022 Virtual Visit Pain & Palliative Marilia Deluna, Care PhD [address] [place] [address] 09/30/2022 Office Visit Family Practice Aydee Burton, ELADIO DISPATCH ASSOCIATE [address] [place] [address]402 10/03/2022 Therapy Visit Physical Therapy Una Reardon, PT [address] [place] [address] 10/10/2022 Hospital Encounter Surgery Lesly Celaya MD [address] [place], [place] [address] 10/10/2022 Office Visit Surgery Lesly Celaya MD [address] [place], [place] [phone] Ninoska Flowers PA-C [address] [place] [address] 10/10/2022 Surgery Surgery Lesly Celaya, EXCISION, MASSES - MD back, abdomen, [address] [place] [address] 10/11/2022 Virtual Visit Pharm Clari Stoll, [facility] [address] [place] [id number] [place], [place] [address] 10/14/2022 Appointment Speech Therapy Anabel Chew, HEALTH TYPE TECHNICIAN [facility] 516 [facility] 396 [place], [place] [address] 10/21/2022 Office Visit Pulmonology Obdulio Barrera MD 420 [facility] 276 [place], [place] [address] 10/25/2022 PRE VISIT ENT Charo Burton MD Previsit 909 [place] [address] 10/25/2022 Office Visit Charo Carter MD [address] [place] [id number] 10/25/2022 Office Visit ENT Provider, 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 Animal Husbandry Worker 10/28/2022 Appointment Speech Therapy Anabel Chew, HEALTH TYPE TECHNICIAN [address] [address] 11/17/2022 Appointment Speech Therapy Anabel Chew HEALTH TYPE TECHNICIAN [address] [address] 12/23/2022 Office Visit Neurology Colby Yeung MD [address] [address] Scheduled Procedures Name Priority Associated Diagnoses Date/Time EXCISION, MASS, TORSO Lipoma of skin and subcuta neous 10/10/2022 7:30 AM SENIOR IT RECRUITER tissue documented as of this encounter Visit Diagnoses Diagnosis Chronic myofascial pain Mylagia and myositis, unspecified Trigger point of shoulder region, unspec ified laterality Lipoma of skin and subcutaneous tissue Lipoma of other skin and subcutaneous ti ssue documented in this encounter Additional Health Concerns Assessment Noted Time PHQ-9 Depression Total Score: 22 06/28/2021 7:03 AM CD T documented as of this encounter Care Teams Chief Catalyst Operator Relationship Specialty Start Date End Date Aydee Burton, PCP - General Nurse Practitioner - 05/17/21 BROTHEL KEEPER DISPATCH ASSOCIATE Family [address] [place] [address] Aydee Burton, Assigned PCP 04/28/21 BROTHEL KEEPER DISPATCH ASSOCIATE [address] [place] [id number] Louisa Hood, Assigned Neuroscience 07/11/21 BROTHEL KEEPER DISPATCH ASSOCIATE Provider [address] [place] [address] Se Levy, Lead Capacitor Assembler 08/05/21 05/12/22 IRON SETTER Clari Ruiz Pharmacist Pharmacist 08/06/21 06/07/22 Jcoelyn, [facility] [address] [place] [address] [place], Assigned Sleep 08/01/21 Angel Turcios, Provider [address] [place], [place] [phone] Lesly Celaya MD Assigned Surgical 09/05/21 [address] Provider [place], [place] [phone] Tawana Patel MA [facility] Health 09/30/21 Worker Ramses Mcpherson Assigned OBGYN 11/07/21 MD Onesimo Provider [address] [place], [place] [phone] Mago Swift [facility] Lead Capacitor Assembler Analytics Analyst - 08/05/21 Clinical documented as of this encounter
--- OUTSIDE RECORDS SUMMARY | 2022-09-21 04:12 | XMS_ITS | Encounter Summary ---
:1980 Author Organization [place] Address [address] [facility] [place] [address] Care Team Providers Name Role Phone Aydee Burton YOUTH MINISTRY DIRECTOR PHOTOGRAPHY TEACHER Primary Care Provider [phone] Aydee Burton YOUTH MINISTRY DIRECTOR PHOTOGRAPHY TEACHER Unavailable [phone] Louisa Hood YOUTH MINISTRY DIRECTOR PHOTOGRAPHY TEACHER Unavailable [phone] Se Levy BRIM STRETCHING MACHINE OPERATOR Unavailable Unavailable Clari Ruiz [facility] Unavailable [phone] Angel Hannah MD Unavailable Lesly Celaya MD Unavailable Tawana Patel MA Unavailable Unavailable Ramses Mcpherson MD Unavailable [phone] Mago Swift UNDERWATER PHOTOGRAPHER Unavailable Encounter Details Date Type Department Care Team Description 01/14/2022 Travel Social History Tobacco Use Types Packs/Day [...] How often do you attend islam or jain services? Never 08/05/2021 Do you [...] at Date Recorded Female 11/09/2021 7:53 PM LIME HIDE INSPECTOR COVID-19 Exposure Response Date Recorded In the last month, have you been in contact with No / Unsure 01/14/2022 12:47 PM LIME HIDE INSPECTOR someone who was confirmed or suspected to have Coronavirus / COVID-19? documented as of this encounter Plan of Treatment Upcoming Encounters Date Type Specialty Care Team Description 09/26/2022 Appointment Speech Therapy Obdulio Barrera MD 420 [facility] 276 [place], [place] [address] Anabel Chew, MACHINE FINISHER [place] [phone] [facility] 396 [place], [place] [address] 09/27/2022 Therapy Visit Physical Therapy Luisana Watkins, PT [address] [place] [address] 09/29/2022 Virtual Visit Pain & Palliative Marilia Deluna Care PhD [address] [facility] [place] [address] 09/30/2022 Office Visit Family Practice Aydee Burton, YOUTH MINISTRY DIRECTOR PHOTOGRAPHY TEACHER [address] [place], [place] [phone] 10/03/2022 Therapy Visit Physical Therapy David-Una Tang, PT [address] [place] [address] 10/10/2022 Hospital Encounter Surgery Lesly Celaya MD [address] [place] [address] 10/10/2022 Office Visit Surgery Lesly Celaya MD [address] [place] [address] Ninoska Flowers PA-Ynes [address] [place] [address] 10/10/2022 Surgery Surgery Lesly Celaya, EXCISION, MASSES - MD back, abdomen, [address] [place] [address] 10/11/2022 Virtual Visit Clari Su, [facility] [address] [address] 10/14/2022 Appointment Speech Therapy Anabel Chew, MACHINE FINISHER [facility] 516 [facility] 396 [place], [place] [address] 10/21/2022 Office Visit Pulmonology Obdulio Barrera MD 420 [facility] 276 [place] [address] 10/25/2022 PRE VISIT ENT Charo Burton MD Previsit 909 [place] [address] 10/25/2022 Office Visit ENT Charo Burton MD 909 [place] [address] 10/25/2022 Office Visit ENT Provider, 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 Development Team Lead 10/28/2022 Appointment Speech Therapy Anabel Chew, MACHINE FINISHER [address] [address] 11/17/2022 Appointment Speech Therapy Anabel Chew, MACHINE FINISHER [address] [address] 12/23/2022 Office Visit Neurology Colby Yeung MD [address] [id number] Scheduled Procedures Name Priority Associated Diagnoses Date/Time EXCISION, MASS, TORSO Lipoma of skin and subcuta neous 10/10/2022 7:30 AM LIME HIDE INSPECTOR tissue documented as of this encounter Visit Diagnoses Not on filedocumented in this encounter Additional Health Concerns Infection Onset Date Last Indicated Resolved Time Rule Out COVID-19 01/14/2022 01/14/2022 01/14/2022 6:2 9 PM LIME HIDE INSPECTOR Assessment Noted Time PHQ-9 Depression Total Score: 22 06/28/2021 7:03 AM CD T documented as of this encounter Care Teams Ring Sewer Relationship Specialty Start Date End Date Aydee Burton, PCP - General Nurse Practitioner - 05/17/21 ELADIO KOO Family [address] [place] [address] Aydee Burton, Assigned PCP 04/28/21 YOUTH MINISTRY DIRECTOR PHOTOGRAPHY TEACHER [address] [place], [place] [address] Louisa Hood, Assigned Neuroscience 07/11/21 YOUTH MINISTRY DIRECTOR PHOTOGRAPHY TEACHER Provider 500 [place] [address] Se Levy, Lead Die Cut Operator 08/05/21 05/12/22 BRIM STRETCHING MACHINE OPERATORClari Ordonez Pharmacist Pharmacist 08/06/21 06/07/22 Jocelyn, [facility] [address] [place], [place] [phone] [place], Assigned Sleep 08/01/21 Angel Turcios, Provider [address] [place], [place] [address] Lesly Celaya MD Assigned Surgical 09/05/21 [address] Provider [place], [place] [address] Tawana Patel MA [facility] Health 09/30/21 Worker Ramses Mcpherson Assigned OBGYN 11/07/21 MD Onesimo Provider [address] [place], [place] [address] Mago Swift, [facility] Lead Die Cut Operator Instructional Supervisor - 08/05/21 Clinical documented as of this encounter
--- OUTSIDE RECORDS SUMMARY | 2022-09-21 04:12 | XMS_ITS | Encounter Summary ---
:1980 Author Organization [place] Address [address] [place] [address] Care Team Providers Name Role Phone Aydee Burton MUNITIONS WORKER LABORER Primary Care Provider Aydee Burton MUNITIONS WORKER LABORER Unavailable [phone] Louisa Hood MUNITIONS WORKER LABORER Unavailable [phone] Se Levy GLASS EMBOSSER Unavailable Unavailable Clari Ruiz [facility] Unavailable [phone] Angel Hannah MD Unavailable Lesly Celaya MD Unavailable Tawana Patel MA Unavailable Unavailable Ramses Mcpherson MD Unavailable [phone] Mago Swift TOOL CHECKER Unavailable Reason for Visit Reason Onset Date Comments Refill Request 01/10/2022 Encounter Details Date Type Department Care Team Description 01/10/2022 Refill M [facility] Aydee Burton, Refill Request [place] MUNITIONS WORKER LABORER [address] [place] [address] [place], [place] [phone] Social History Tobacco Use Types Packs/Day Years [...] How often do you attend jain or yarsanism services? 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/2021 7:53 PM FOOD TASTER COVID-19 Exposure Response Date Recorded In the last month, have you been in contact with No / Unsure 01/07/2022 2:29 PM FOOD TASTER someone who was confirmed or suspected to have Coronavirus / COVID-19? documented as of this encounter Miscellaneous Notes Telephone Encounter - Aydee Burton APRN LABORER - 01/11/2022 10:27 PM FOOD TASTER Images from the original note were not included. Prescribed by psych provider. TARA Spivey-BC TASTER Telephone Encounter - Elizabeth Cancino RN - 01/11/2022 7:07 PM CST Pending Prescriptions: Disp Refills DULoxetine (CYMBALTA) 60 MG capsule Sig: Take 1 capsule (60 mg) by mouth At Bedtime 2 tablets - 120mg total Routing refill request to provider for review/approval because: Medication is reported/historical TASTER documented in this encounter Plan of Treatment Upcoming Encounters Date Type Specialty Care Team Description 09/26/2022 Appointment Speech Therapy Obdulio Barrera MD 420 [facility] 276 [place], [place] [address] Anabel Chew, LANDSCAPER [place] 428[address] [facility] 396 [place], [place] [address]235 09/27/2022 Therapy Visit Physical Therapy Luisana Watkins, PT 2155 [place] [address] 09/29/2022 Virtual Visit Pain & Palliative Marilia Deluna, [facility] PhD [address] [place] [address] 09/30/2022 Office Visit Family Practice Aydee Burton APRN LABORER [address] [place] [phone] 10/03/2022 Therapy Visit Physical Therapy Una Reardon, PT 2157 [place] [address] 10/10/2022 Hospital Encounter Surgery Lesly Celaya MD [address] [place], [place] [phone] 10/10/2022 Office Visit Surgery Lesly Celaya MD [address] [place] [address] Ninoska Flowers, PHILIPPE [address] [place], [place] [address] 10/10/2022 Surgery Surgery Lesly Celaya, EXCISION, MASSES - MD back, abdomen, [address] extremity [place], [place] [address] 10/11/2022 Virtual Visit Pharm Bryce Ruiz, Clari Banks, [place] [phone] [address] [address] 10/14/2022 Appointment Speech Therapy Anabel Chew, LANDSCAPER [address] [address] 10/21/2022 Office Visit Pulmonology Obdulio Barrera MD [address] [place] [address] 276 [place], [place] [address] 10/25/2022 PRE VISIT ENT Charo Burton MD Previsit 909 [place], [place] [address] 10/25/2022 Office Visit ENT Charo Burton MD 9 [place], [place] [address] 10/25/2022 Office Visit ENT Provider, 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 Intellectual Property Counsel 10/28/2022 Appointment Speech Therapy Anabel Chew, LANDSCAPER [address] 4[address] 11/17/2022 Appointment Speech Therapy Anabel Chew, LANDSCAPER [facility] 516 [facility] 396 [place], [place] [phone] 12/23/2022 Office Visit Neurology Colby Yeung MD [address] [place] [address] Scheduled Procedures Name Priority Associated Diagnoses Date/Time EXCISION, MASS, TORSO Lipoma of skin and subcuta neous 10/10/2022 7:30 AM FOOD TASTER tissue documented as of this encounter Visit Diagnoses Not on filedocumented in this encounter Additional Health Concerns Assessment Noted Time PHQ-9 Depression Total Score: 22 06/28/2021 7:03 AM CD T documented as of this encounter Care Teams Social Science Professor Relationship Specialty Start Date End Date Aydee Burton, PCP - General Nurse Practitioner - 05/17/21 MUNITIONS WORKER LABORER Family [address] [place] [address] [phone] Aydee Burton, Assigned PCP 04/28/21 MUNITIONS WORKER LABORER [address] [place] [address] Louisa Hood, Assigned Neuroscience 07/11/21 MUNITIONS WORKER LABORER Provider [address] [place] [address] [phone] Se Levy, Lead Community Resource Consultant 08/05/21 05/12/22 Clari Francois Pharmacist Pharmacist 08/06/21 06/07/22 Jocelyn [facility] [address] [place] [address] [place], Assigned Sleep 08/01/21 Angel Turcios, Provider [address] [place] [address] Lesly Celaya MD Assigned Surgical 09/05/21 [address] Provider [place], [place] [address] Tawana Patel MA [facility] Health 09/30/21 Worker Ramses Mcpherson Assigned OBGYN 11/07/21 MD Onesimo Provider [address] [place], [place] [address] Mago Swift [facility] Lead Community Resource Consultant Fats And Oils Loader - 08/05/21 Clinical documented as of this encounter
--- OUTSIDE RECORDS SUMMARY | 2022-09-21 04:12 | XMS_ITS | Encounter Summary ---
:1980 Author Organization [facility] Address [address] [place] [address] Care Team Providers Name Role Phone Aydee Burton HAT BLOCKING MACHINE OPERATOR SCHOOL BUS MECHANIC Primary Care Provider [phone] Aydee Burton HAT BLOCKING MACHINE OPERATOR SCHOOL BUS MECHANIC Unavailable [phone] Louisa Hood HAT BLOCKING MACHINE OPERATOR SCHOOL BUS MECHANIC Unavailable [phone] Se Levy DIGITAL MARKETING OFFICER Unavailable Unavailable Clari Ruiz [facility] Unavailable Angel Hannah MD Unavailable Lesly Celaya MD Unavailable Tawana Patel MA Unavailable Unavailable Ramses Mcpherson MD Unavailable [phone] Mago Swift LEAD TRAINER Unavailable Reason for Visit Reason Comments Surgical Followup Encounter Details Date Type Department Care Team Description 01/07/2022 Office Visit [facility] Ramses Mcpherson Post op check Clinic Sri Echols MD (Primary Dx) [address] [place] [address] [address] [place] [address] [phone] Social History Tobacco Use Types Packs/Day Years [...] How often do you attend buddhism or catholic services? Never 08/05/2021 Do you [...] at Date Recorded Female 11/09/2021 7:53 PM FLATWORK PRESSER COVID-19 Exposure Response Date Recorded In the last month, have you been in contact with No / Unsure 01/07/2022 2:29 PM FLATWORK PRESSER someone who was confirmed or suspected to have Coronavirus / COVID-19? documented as of this encounter Last Filed Vital Signs Vital Sign Reading Time Taken Comments Blood Pressure 112/72 01/07/2022 2:40 PM FLATWORK PRESSER Pulse - - Temperature - - Respiratory Rate - - Oxygen Saturation - - Inhaled Oxygen Concentration - - Weight 91.9 kg (202 lb 11.2 oz) 01/07/2022 2:40 PM FLATWORK PRESSER Height - - Body Mass Index 31.75 12/28/2021 6:22 AM FLATWORK PRESSER documented in this encounter Progress Notes Ramses Mcpherson MD - 01/07/2022 2:30 PM CST Post Op Follow Up [facility] [place] is [...] -Benign paratubal cysts, bilateral. -Negative for malignancy. Patient called the clinic today and left the following message: Stephen, I did call the nurses line but waited over thirty minutes and I gave up. I had a laparoscopic hysterectomy on the . I was doing well. Then I got sick with a horrible cold. I tried to shovelslowly a few paths leading to my house after it snowed on Monday. Bad idea. Now I constantly havecramps. I have a hard time sitting and standing because it is uncomfortable. It is crappy and feels like pressure below my tailbone. It is hard and impossible to push when going to the bathroom. My bottom hurts. Not only all of that I keep having liquid drain out of me from inside. It is now like a brown color to the liquid. Monday jt was red. The smell is a slight blood smell. I wanted to make sure this is all okay. My family is telling me to ask. Thank you for taking the time to help me. She was immediately contacted and advised to come to the clinic for evaluation EXAM: Abdomen: Abdomen soft, non-tender. BS normal. No masses, organomegaly. Laparoscopy scars clean, dry and intact. : Normal external genitalia without lesions. Vagina negative. Cuff well supported and intact. Slight watery discharge. Suture line intact w/o erythema. No apical masses or tenderness Follow up in 3 week(s) for post op exam oJnah Mcpherson MD WORK PRESSER documented in this encounter Nursing Notes Carlene Frazier CMA - 01/07/2022 2:30 PM CST Chief Complaint Patient presents with ??? Surgical Followup initial BP 112/72 Wt 91.9 kg (202 lb 11.2 oz) LMP 12/11/2021 (Exact Date) BMI 31.75 kg/m?? Estimated body mass index is 31.75 kg/m?? as calculated from the following: Height as of 12/28/21: 1.702 m (5' 7). Weight as of this encounter: 91.9 kg (202 lb 11.2 oz). BP completed using cuff size regular. Carlene Frazier CMA WORK PRESSER documented in this encounter Plan of Treatment Upcoming Encounters Date Type Specialty Care Team Description 09/26/2022 Appointment Speech Therapy Obudlio Barrera MD [address] [facility] [address] [place], [place] [phone] Anabel Chew, CYLINDER HONER [address] [place], [place] [address] 09/27/2022 Therapy Visit Physical Therapy Luisana Watkins, PT [address] [place] [address] 09/29/2022 Virtual Visit Pain & Palliative Marilia Deluna, Care PhD [address] [place] [address] 09/30/2022 Office Visit Family Practice Aydee Burton, HAT BLOCKING MACHINE OPERATOR SCHOOL BUS MECHANIC [address] [place] [phone] 10/03/2022 Therapy Visit Physical Therapy Una Reardon, PT [address] [place] [phone] 10/10/2022 Hospital Encounter Surgery Lesly Celaya MD [address] [place], [place] [address] 10/10/2022 Office Visit Surgery Lesly Celaya MD [address] [place], [place] [phone] Ninoska Flowers PA-Ynes [address] [place], [place] [phone] 10/10/2022 Surgery Surgery Lesly Celaya, EXCISION, MASSES - MD back, abdomen, [address] [place] [address] 10/11/2022 Virtual Visit Pharm Clari Stoll, [address] [phone] 10/14/2022 Appointment Speech Therapy Anabel Chew, CYLINDER HONER [facility] [address] [facility] [address] [place], [place] [address] 10/21/2022 Office Visit Pulmonology Obdulio Barrera MD [address] [facility] [address] [place], [place] [phone] 10/25/2022 PRE VISIT ENT Charo Burton MD Previsit [address] [place], [place] [phone] 10/25/2022 Office Visit Charo Carter MD [address] [place], [place] [address] 10/25/2022 Office Visit ENT Provider, Jeannette 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 [facility] 10/28/2022 Appointment Speech Therapy Anabel Chew SLP [address] [place], [place] [address] 11/17/2022 Appointment Speech Therapy Anabel Chew SLP [address] [place], [place] [address] 12/23/2022 Office Visit Neurology Colby Yeung MD [address] [place] [phone] Scheduled Procedures Name Priority Associated Diagnoses Date/Time EXCISION, MASS, TORSO Lipoma of skin and subcuta neous 10/10/2022 7:30 AM FLATWORK PRESSER tissue documented as of this encounter Visit Diagnoses Diagnosis Postop check - Primary Follow-up examination, following unspeci fied surgery Lipoma of skin and subcutaneous tissue Lipoma of other skin and subcutaneous ti ssue documented in this encounter Additional Health Concerns Assessment Noted Time PHQ-9 Depression Total Score: 22 06/28/2021 7:03 AM CD T documented as of this encounter Care Teams Door Glass Installer Relationship Specialty Start Date End Date Aydee Burton, PCP - General Nurse Practitioner - 05/17/21 HAT BLOCKING MACHINE OPERATOR SCHOOL BUS MECHANIC Family [address] [place] [phone] Aydee Burton, Assigned PCP 04/28/21 HAT BLOCKING MACHINE OPERATOR SCHOOL BUS MECHANIC [address] [place] [phone] Louisa Hood, Assigned Neuroscience 07/11/21 HAT BLOCKING MACHINE OPERATOR SCHOOL BUS MECHANIC Provider [address] [place] [phone] Se Levy, Lead Business Analyst Consultant 08/05/21 05/12/22 Clari Francois Pharmacist Pharmacist 08/06/21 06/07/22 Jocelyn, RPH [address] [place], [place] [phone] [place], Assigned Sleep 08/01/21 Angel Turcios, Provider [address] [place], [place] [address] Lesly Celaya MD Assigned Surgical 09/05/21 [address] [place] [address] Tawana Patel MA [facility] 09/30/21 Worker Ramses Mcpherson Assigned OBGYN 11/07/21 MD Onesimo Provider [address] [place], [place] [phone] Mago Swift, [facility] Lead Business Analyst Consultant Fox Farmer - 08/05/21 Clinical documented as of this encounter
--- OUTSIDE RECORDS SUMMARY | 2022-09-21 04:12 | XMS_ITS | Encounter Summary ---
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 {Provider Resources Preop [facility] Preop Guidelines Revised Cardiac Risk Index :05671 Aydee Yao APRN CNP - 01/14/2022 1:10 PM CST Images from the original note were not included. Please call patient. I have updated her preop to include her results of her CT with thankful the pulmonary embolism was ruled out. She is cleared for upcoming surgery. She is able to take her morning psychiatric medications with small sip of water but would encourage her to avoid ibuprofen Advil Aleve aspirin type medications(nsaids) within 5 to 7 days of surgery. Please fax preop and EKG to her surgical team. MARINO Spivey Abril Aggarwal RN - 01/14/2022 1:10 PM CST Called and spoke with patient. Advised of Aydee's note. Cleared for surgery. To take psychiatric meds with small sip of water the morning of procedure. Patient stated an understanding and agreed with plan. Faxed pre-op note and EKG Dr. Niyah Allison, Attn: Clemencia. . Abril Castaneda RN [facility] ABRIL CASTANEDA RN on 01/17/2022 at 6:35 PM ICATIONS PACKAGER documented in this encounter Miscellaneous Notes Result Encounter Note - Aydee Nam APRN ORACLE AGILE PLM CONSULTANT - 01/14/2022 1:10 PM APPLICATIONS PACKAGER Note to Staff: please call the patient to explain results. Unfortunately Ddimer is +; stat CT scan with contrast pulmonary embolism rule out now. Please call patient and call imaging to get done at [facility] if not available today she went to see the emergency room. TARA Spivey- ICATIONS PACKAGER documented in this encounter Plan of Treatment Upcoming Encounters Date Type Specialty Care Team Description 09/26/2022 Appointment Speech Therapy Obdulio Barrera MD 420 [facility] 276 [place], [place] [address] Anabel Chew, COOK DINNER [facility] 516 [facility] 396 [place] [address] 09/27/2022 Therapy Visit Physical Therapy Luisana Watkins, PT [address] [place] [address] 09/29/2022 Virtual Visit Pain & Palliative Marilia Deluna, [facility] PhD [address] [place] [address] 09/30/2022 Office Visit Family Practice Aydee Nam APRN ORACLE AGILE PLM CONSULTANT [address] [place], [place] [address] 10/03/2022 Therapy Visit Physical Therapy Una Reardon, PT [address] [place] [phone] 10/10/2022 Hospital Encounter Surgery Lesly Celaya MD [address] [place], [place] [address] 10/10/2022 Office Visit Surgery Lesly Celaya MD [address] [place], [place] [phone] Ninoska Flowers, FLORES-C [address] [place] [address] 10/10/2022 Surgery Surgery Lesly Celaya, EXCISION, MASSES - MD back, abdomen, [address] right [place] [address] 10/11/2022 Virtual Visit Pharm Clari Stoll, [facility] [address] [address] 10/14/2022 Appointment Speech Therapy Anabel Chew, [facility] DINNER [facility] 516 [facility] 396 [place], [place] [address] 10/21/2022 Office Visit Pulmonology Obdulio Barrera MD 420 [facility] [address] [place], [place] [address] 10/25/2022 PRE VISIT Charo Carter MD Previsit [address] [place] [phone] 10/25/2022 Office Visit Charo Carter MD [address] [place] [phone] 10/25/2022 Office Visit ENT Provider, Jeannette 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 Banker Mason 10/28/2022 Appointment Speech Therapy Anabel Chew, CELINE [address] [address] 11/17/2022 Appointment Speech Therapy Anabel Chew SLP [address] [address] 12/23/2022 Office Visit Neurology Colby Yeung MD [address] [place] [address] Scheduled Orders Name Type Priority Associated Diagnoses Order S chedule CT Chest Pulmonary Imaging STAT Preoperative examination Expected: 01/14/2022 Embolism w Contrast Cough (Approximate), Follow-up examination s: 01/14/2023 following surger y Reduced chest expansion on inspiration Chest pain, unspecified type Wheezing Scheduled Procedures Name Priority Associated Diagnoses Date/Time EXCISION, MASS, TORSO Lipoma of skin and subcuta neous 10/10/2022 7:30 AM APPLICATIONS PACKAGER tissue documented as of this encounter Procedures Procedure Name Priority Date/Time Associated Diagnosis Comme nts D DIMER QUANTITATIVE STAT 01/14/2022 1:56 PM S/P laparoscop ic Results for this APPLICATIONS PACKAGER hysterectomy procedure are in Preoperative the results examination section. Cough Follow-up examination following surger y Reduced chest expansion on inspiration Chest pain, unspecified type EKG 12-LEAD COMPLETE Routine 01/14/2022 1:43 PM Cough Results for this W/READ - CLINICS APPLICATIONS PACKAGER Follow-up procedure a re in examination the results following surger y section. Reduced chest expansion on inspiration Chest pain, unspecified type documented in this encounter Results XR Chest 2 Views (01/14/2022 2:27 PM APPLICATIONS PACKAGER) Anatomical Region Laterality Modality Chest Computed Radiography Specimen (Source) Anatomical Location Collection Method / Collectio n Time Received Time / Laterality Volume Impressions 01/14/2022 2:48 PM APPLICATIONS PACKAGER IMPRESSION: There are no acute infiltrates. The cardiac silhouette is not enlarged. Pulmonary vasculature is u nremarkable. TEAGAN LAURENT MD Narrative 01/14/2022 2:48 PM APPLICATIONS PACKAGER CHEST TWO VIEWS 01/14/2022 2:27 PM HISTORY: [...] is u nremarkable. TEAGAN LAURENT MD Aydee Nam APRN, CNP IMG DIAGNOSTIC IMAGING O RDERABLES (ABNORMAL) D dimer, quantitative (01/14/2022 1:56 PM APPLICATIONS PACKAGER) [facility] gist Method Time Signature D-Dimer 1.33 (H) 0.00 - 01/14/2022 [facility] Quantitative 0.50 3:32 PM APPLICATIONS PACKAGER ug/mL FEU Specimen Anatomical Collection Method / Collection Time Recei edil Time (Source) Location / Volume Laterality Blood STRUCTURE OF RIGHT Venipuncture / 01/14/2022 1:56 03/0 02/2022 1:56 UPPER LIMB / Unknown PM APPLICATIONS PACKAGER PM APPLICATIONS PACKAGER Unknown Narrative [facility] - 01/14/2022 3:32 PM APPLICATIONS PACKAGER This D-dimer assay is intended for use i n conjunction with a clinical pretest probability assessment model to exclude pulmonary embolism (PE) and deep venous thrombosis (DVT) in outpatients suspecte d of PE or DVT. The cut-off value is 0.50 ug/mL FEU. Aydee Nam APRN, CNP LAB - BLOOD ORDERABLES Performing Organization Address City/State/ZIP Code Phon e Number [facility] [place], [place] [phone] [place] [facility] [id number] Lab (no room number, 1st floor of clinic) [facility] [place], [place] [phone] [facility] [id number] [place] [facility] [address] Lab (no room number, 1st floor of clinic) EKG 12-lead complete w/read - Clinics (01/14/2022 1:43 PM APPLICATIONS PACKAGER) Narrative This result has an attachment that is no t available. 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 Cough Reduced chest expansion on inspiration Other symptoms involving respiratory sys tem and chest Chest pain, unspecified type Wheezing Cough Follow-up examination following surgery Reduced chest expansion on inspiration Other symptoms involving respiratory sys tem and chest Lipoma of skin and subcutaneous tissue Lipoma of other skin and subcutaneous ti ssue documented in this encounter Additional Health Concerns Infection Onset Date Last Indicated Resolved Time Rule Out COVID-19 01/14/2022 01/14/2022 01/14/2022 6:2 9 PM APPLICATIONS PACKAGER Assessment Noted Time PHQ-9 Depression Total Score: 06/28/2021 7:03 AM CD T documented as of this encounter Care Teams Manager Client Relationship Specialty Start Date End Date Aydee Nam, PCP - General Nurse Practitioner - 05/17/21 INSOLE FILLER ORACLE AGILE PLM CONSULTANT Family [address] [place], [place] [address] Aydee Nam, Assigned PCP 04/28/21 INSOLE FILLER ORACLE AGILE PLM CONSULTANT [address] [place], [place] [address] Louisa Hood, Assigned Neuroscience 07/11/21 INSOLE FILLER ORACLE AGILE PLM CONSULTANT Provider [address] [place] [address] [id number] Se Levy, Lead Director Operations Broadcast 08/05/21 05/12/22 Clari Francois Pharmacist Pharmacist 08/06/21 06/07/22 Jocelyn [facility] 24[address] [facility] F[address] [place], [place] [address] [place], Assigned Sleep 08/01/21 Angel Turcios, Provider [address] [place], [place] [phone] Lesly Celaya MD Assigned Surgical 09/05/21 [address] [place] [address] Tawana Patel MA [facility] 09/30/21 Worker Ramses Mcpherson Assigned OBGYN 11/07/21 MD Teagan Provider [address] [place], [place] [phone] Marleny Maloney Financial Resource 01/17/22 01/17/22 Worker Mago Swift LICSW Lead Director Operations Broadcast Ob Gyn - 08/05/21 Clinical documented as of this encounter
--- OUTSIDE RECORDS SUMMARY | 2022-09-21 04:12 | XMS_ITS | Encounter Summary ---
:1980 Author Organization [facility] Address [address] [place] [address] Care Team Providers Name Role Phone Aydee Burton AGRICULTURAL LENDER MAGNETOMETER OPERATOR Primary Care Provider Aydee Burton AGRICULTURAL LENDER MAGNETOMETER OPERATOR Unavailable [phone] Louisa Hood AGRICULTURAL LENDER MAGNETOMETER OPERATOR Unavailable [phone] Se Levy EXPEDITIONARY FIGHTING VEHICLE CREWMAN Unavailable Unavailable Clari Ruiz [facility] Unavailable [phone] Angel Hannah MD Unavailable Lesly Celaya MD Unavailable Tawana Patel MA Unavailable Unavailable Ramses Mcpherson MD Unavailable [phone] Mago Swift NURSE TECH Unavailable Reason for Visit Reason Onset Date Comments Forms 01/05/2022 Encounter Details Date Type Department Care Team Description 01/05/2022 Telephone Self [facility] Lor Mcpherson, Forms [facility] Noy BIRD [address] [place] [address] [place] [address] [phone] Social History Tobacco Use Types Packs/Day Years [...] How often do you attend judaism or methodist services? 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/2021 7:53 PM COMMUNITY RELATIONS MANAGER COVID-19 Exposure Response Date Recorded In the last month, have you been in contact with No / Unsure 01/07/2022 2:29 PM COMMUNITY RELATIONS MANAGER someone who was confirmed or suspected to have Coronavirus / COVID-19? documented as of this encounter Miscellaneous Notes Telephone Encounter - Carlene Frazier CMA - 01/07/2022 5:12 PM CST Forms completed and faxed. Copy sent to scan and original in the [place] fax jessenia Frazier CMA UNITY RELATIONS MANAGER Telephone Encounter - Carlene Frazier CMA - 01/07/2022 11:30 AM CST Form started and placed on Dr. Mcpherson's Velpen desk for completion and signature Carlene Frazier CMA UNITY RELATIONS MANAGER Telephone Encounter - Fatou Daniel - 01/05/2022 2:24 PM CST Form received from: [employer] Form requesting following info/need: FMLA [place] needed?: No Location of form: Fatou's desk When completed the route for return: UNITY RELATIONS MANAGER documented in this encounter Plan of Treatment Upcoming Encounters Date Type Specialty Care Team Description 09/26/2022 Appointment Speech Therapy Obdulio aBrrera MD 420 [facility] 276 [place], [place] [address] Anabel Chew, BAND RIPSAW OPERATOR [address] [place], [place] [address] 09/27/2022 Therapy Visit Physical Therapy Luisana Watkins, PT 2[address] [place] [address] 09/29/2022 Virtual Visit Pain & Palliative Marilia Deluna Care PhD [address] [place] [address] 09/30/2022 Office Visit Family Practice Aydee Burton, AGRICULTURAL LENDER MAGNETOMETER OPERATOR [address] [place] [address] [phone] 10/03/2022 Therapy Visit Physical Therapy Una Reardon, PT [address] [place] [address] 10/10/2022 Hospital Encounter Surgery Lesly Celaya MD [address] [place], [place] [address] 10/10/2022 Office Visit Surgery Lesly Celaya MD [address] [place] [address] Ninoska Flowers PA-C [address] [place] [address] 10/10/2022 Surgery Surgery Lesly Celaya, EXCISION, MASSES - MD back, abdomen, [address] [place] [address] 10/11/2022 Virtual Visit Pharm Clari Stoll, [facility] [address] [place] [phone] [place], [place] [address] 10/14/2022 Appointment Speech Therapy Anabel Chew, BAND RIPSAW OPERATOR [facility] 516 [facility] 396 [place], [place] [address] 10/21/2022 Office Visit Pulmonology Obdulio Barrera MD 420 [facility] 276 [place], [place] [address] 10/25/2022 PRE VISIT ENT Charo Burton MD Previsit [address] [place], [place] [phone] 10/25/2022 Office Visit Charo Carter MD [address] [place], [place] [phone] 10/25/2022 Office Visit ENT Provider, 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 Jewelry Polisher 10/28/2022 Appointment Speech Therapy Anabel Chew, BAND RIPSAW OPERATOR [address] [address] 11/17/2022 Appointment Speech Therapy Anabel Chew, BAND RIPSAW OPERATOR [address] [address] 12/23/2022 Office Visit Neurology Colby Yeung MD [address] [place] [phone] Scheduled Procedures Name Priority Associated Diagnoses Date/Time EXCISION, MASS, TORSO Lipoma of skin and subcuta neous 10/10/2022 7:30 AM COMMUNITY RELATIONS MANAGER tissue documented as of this encounter Visit Diagnoses Not on filedocumented in this encounter Additional Health Concerns Assessment Noted Time PHQ-9 Depression Total Score: 22 06/28/2021 7:03 AM CD T documented as of this encounter Care Teams Repeater Chief Relationship Specialty Start Date End Date Aydee Burton, PCP - General Nurse Practitioner - 05/17/21 AGRICULTURAL LENDER MAGNETOMETER OPERATOR Family [address] [place] [phone] Aydee Burton, Assigned PCP 04/28/21 AGRICULTURAL LENDER MAGNETOMETER OPERATOR [address] [place] [phone] Louisa Hood, Assigned Neuroscience 07/11/21 AGRICULTURAL LENDER MAGNETOMETER OPERATOR Provider [address] [place] [address] [phone] Se Levy, Lead Clinical Informatics Strategist 08/05/21 05/12/22 Clari Francois Pharmacist Pharmacist 08/06/21 06/07/22 Jocelyn [place] [phone] [facility] [place] [address] [place], Assigned Sleep 08/01/21 Angel Turcios, Provider [address] [place], [place] [phone] Lesly Celaya MD Assigned Surgical 09/05/21 [address] Provider [place], [place] [phone] Tawana Patel MA [facility] 09/30/21 Worker Ramses Mcpherson Assigned OBGYN 11/07/21 MD Onesimo Provider [address] [place], [place] [phone] Mago Swift, [facility] Lead Clinical Informatics Strategist Schedule Announcer - 08/05/21 Clinical documented as of this encounter
--- OUTSIDE RECORDS SUMMARY | 2022-09-21 04:12 | XMS_ITS | Encounter Summary ---
:1980 Author Organization [facility] Address [address] [place] [address] Care Team Providers Name Role Phone Aydee Burton DATA DELIVERABLES MANAGER ASSISTANT DESIGNER Primary Care Provider [phone] Aydee Burton DATA DELIVERABLES MANAGER ASSISTANT DESIGNER Unavailable [phone] Louisa Hood DATA DELIVERABLES MANAGER ASSISTANT DESIGNER Unavailable [phone] Se Levy TOOL MACHINE SHOP SUPERVISOR Unavailable Unavailable Clari Ruiz [facility] Unavailable [phone] Angel Hannah MD Unavailable Lesly Celaya MD Unavailable Tawana Patel MA Unavailable Unavailable Ramses Mcpherson MD Unavailable [phone] Mago Swift CHILDCARE ATTENDANT Unavailable Encounter Details Date Type Department Care Team Description 12/28/2021 Travel Social History Tobacco Use Types Packs/Day [...] How often do you attend holiness or anabaptism services? Never 08/05/2021 Do you [...] at Date Recorded Female 11/09/2021 7:53 PM ACID CUTTER COVID-19 Exposure Response Date Recorded In the last month, have you been in contact with No / Unsure 12/28/2021 5:49 AM ACID CUTTER someone who was confirmed or suspected to have Coronavirus / COVID-19? documented as of this encounter Plan of Treatment Upcoming Encounters Date Type Specialty Care Team Description 09/26/2022 Appointment Speech Therapy Obdulio Barrera MD 420 [facility] 276 [place], [place] [address] Anabel Chew, WIND TURBINE MECHANICAL ENGINEER [place] [phone] [facility] 396 [place], [place] [address] 09/27/2022 Therapy Visit Physical Therapy Luisana Watkins, PT [address] [place] [address] 09/29/2022 Virtual Visit Pain & Palliative Marilia Deluna Care PhD [address] [facility] [place] [address] 09/30/2022 Office Visit Family Practice Aydee Burton, DATA DELIVERABLES MANAGER ASSISTANT DESIGNER [address] [place], [place] [phone] 10/03/2022 Therapy Visit Physical Therapy David-Una Tang, PT [address] [place] [address] 10/10/2022 Hospital Encounter Surgery Lesly Celaya MD [address] [place] [address] 10/10/2022 Office Visit Surgery Lesly Celaya MD [address] [place] [address] Ninoska Flowers PA-Ynes [address] [place] [address] 10/10/2022 Surgery Surgery Lesly Celaya, EXCISION, MASSES - MD back, abdomen, [address] [place] [address] 10/11/2022 Virtual Visit Clari Su, [facility] [address] [phone] 10/14/2022 Appointment Speech Therapy Anabel Chew, WIND TURBINE MECHANICAL ENGINEER [facility] 516 [facility] 396 [place], [place] [address] 10/21/2022 Office Visit Pulmonology Obdulio Barrera MD 420 [facility] 276 [place] [address] 10/25/2022 PRE VISIT ENT Charo Burton MD Previsit 909 [place] [address] 10/25/2022 Office Visit ENT Charo Burton MD 909 [place] [address] 10/25/2022 Office Visit ENT Provider, 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 Board Mixer Tender 10/28/2022 Appointment Speech Therapy Anable Chew, WIND TURBINE MECHANICAL ENGINEER [address] 9[address] 11/17/2022 Appointment Speech Therapy Anabel Chew, WIND TURBINE MECHANICAL ENGINEER [address] 8[address] 12/23/2022 Office Visit Neurology Colby Yeung MD [address] 797[address] Scheduled Procedures Name Priority Associated Diagnoses Date/Time EXCISION, MASS, TORSO Lipoma of skin and subcuta neous 10/10/2022 7:30 AM ACID CUTTER tissue documented as of this encounter Visit Diagnoses Not on filedocumented in this encounter Additional Health Concerns Assessment Noted Time PHQ-9 Depression Total Score: 22 06/28/2021 7:03 AM CD T documented as of this encounter Care Teams Water Commissioner Relationship Specialty Start Date End Date Aydee Burton, PCP - General Nurse Practitioner - 05/17/21 DATA DELIVERABLES MANAGER ASSISTANT DESIGNER Family [address] [place] [address] [phone] Aydee Burton, Assigned PCP 04/28/21 DATA DELIVERABLES MANAGER [facility] 6671 [place], [place] [phone] Louisa Hood, Assigned Neuroscience 07/11/21 DATA DELIVERABLES MANAGER ASSISTANT DESIGNER Provider [address] [place] [address] Se Levy, Lead Flash Ranging Crewmember 08/05/21 05/12/22 [facility] Clari Ruiz Pharmacist Pharmacist 08/06/21 06/07/22 [facility] [address] [place] [address] [place], Assigned Sleep 08/01/21 Angel Turcios, Provider [address] [place] [address] Lesly Celaya MD Assigned Surgical 09/05/21 [address] [place] [address] Tawana Patel MA [facility] 09/30/21 Worker Ramses Mcpherson Assigned OBGYN 11/07/21 MD Onesimo Provider [address] [place] [address] Mago Swift, [facility] Lead Flash Ranging Crewmember Economic Manager - 08/05/21 Clinical documented as of this encounter
--- OUTSIDE RECORDS SUMMARY | 2022-09-21 04:13 | XMS_ITS | Encounter Summary ---
:1980 Author Organization [place] Address [address] [facility] [place] [address] Care Team Providers Name Role Phone Aydee Burton REAL ESTATE TEACHER FLOWER GRADER Primary Care Provider [phone] Aydee Burton REAL ESTATE TEACHER FLOWER GRADER Unavailable [phone] Louisa Hood REAL ESTATE TEACHER FLOWER GRADER Unavailable [phone] Se Levy BUSINESS TRAINER Unavailable Unavailable Clari Ruiz [facility] Unavailable [phone] Angel Hannah MD Unavailable Lesly Celaya MD Unavailable Tawana Patel MA Unavailable Unavailable Ramses Mcpherson MD Unavailable [phone] Mago Swift FISHER SPONGE HOOKING Unavailable Encounter Details Date Type Department Care Team Description 12/24/2021 Travel Social History Tobacco Use Types Packs/Day [...] How often do you attend christian or hoahaoism services? Never 08/05/2021 Do you [...] at Date Recorded Female 11/09/2021 7:53 PM REGIONAL PRODUCTION MANAGER COVID-19 Exposure Response Date Recorded In the last month, have you been in contact with No / Unsure 12/24/2021 1:43 PM REGIONAL PRODUCTION MANAGER someone who was confirmed or suspected to have Coronavirus / COVID-19? documented as of this encounter Plan of Treatment Upcoming Encounters Date Type Specialty Care Team Description 09/26/2022 Appointment Speech Therapy Obdulio Barrera MD 420 [facility] [place] 276 [place], [place] [address] Anabel Chew, SCALP TREATMENT OPERATOR [place] 657246 [facility] [place] 396 [place], [place] [address] 09/27/2022 Therapy Visit Physical Therapy Luisana Watkins, PT [address] [place] [address] 09/29/2022 Virtual Visit Pain & Palliative Marilia Deluna Care PhD [address] [facility] [place] [address] 09/30/2022 Office Visit Family Practice Aydee Burton, REAL ESTATE TEACHER FLOWER GRADER [address] [place], [place] [phone] 10/03/2022 Therapy Visit Physical Therapy David-Una Tang, PT [address] [place] [address] 10/10/2022 Hospital Encounter Surgery Lesly Celaya MD [address] [place] [address] 10/10/2022 Office Visit Surgery Lesly Celaya MD [address] [place] [address] Ninoska Flowers PA-Ynes [address] [place] [address] 10/10/2022 Surgery Surgery Lesly Celaya, EXCISION, MASSES - MD back, abdomen, [address] [place] [address] 10/11/2022 Virtual Visit Clari Su, [facility] [address] 182334 10/14/2022 Appointment Speech Therapy Anabel Chew, SCALP TREATMENT OPERATOR [facility] 516 [facility] [place] 396 [place], [place] [address] 10/21/2022 Office Visit Pulmonology Obdulio Barrera MD 420 [facility] [place] 276 [place] [address] 10/25/2022 PRE VISIT ENT Charo Burton MD Previsit 909 [place] [address] 10/25/2022 Office Visit ENT Charo Burton MD 909 [place] [address] 10/25/2022 Office Visit ENT Provider, 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 Two Needle Machine Operator 10/28/2022 Appointment Speech Therapy Anabel Chew, SCALP TREATMENT OPERATOR [address] [address] 11/17/2022 Appointment Speech Therapy Anabel Chew, SCALP TREATMENT OPERATOR [address] [address] 12/23/2022 Office Visit Neurology Colby Yeung MD [address] 489875 Scheduled Procedures Name Priority Associated Diagnoses Date/Time EXCISION, MASS, TORSO Lipoma of skin and subcuta neous 10/10/2022 7:30 AM REGIONAL PRODUCTION MANAGER tissue documented as of this encounter Visit Diagnoses Not on filedocumented in this encounter Additional Health Concerns Assessment Noted Time PHQ-9 Depression Total Score: 22 06/28/2021 7:03 AM CD T documented as of this encounter Care Teams Bisque Kiln Drawer Relationship Specialty Start Date End Date Aydee Burton, PCP - General Nurse Practitioner - 05/17/21 REAL ESTATE TEACHER FLOWER GRADER Family [address] [place] [address] [phone] Aydee Burton, Assigned PCP 04/28/21 REAL ESTATE TEACHER [facility] [address] [place], [place] [phone] oLuisa Hood, Assigned Neuroscience 07/11/21 REAL ESTATE TEACHER FLOWER GRADER Provider [address] [place] [address] Se Levy, Lead Mold Machine Operator 08/05/21 05/12/22 [facility] Clari Ruiz Pharmacist Pharmacist 08/06/21 06/07/22 [facility] [address] [place] [address] [place], Assigned Sleep 08/01/21 Angel Turcios, Provider [address] [place] [address] Lesly Celaya MD Assigned Surgical 09/05/21 [address] [place] [address] Tawana Patel MA [facility] 09/30/21 Worker Ramses Mcpherson Assigned OBGYN 11/07/21 MD Onesimo Provider [address] [place] [address] Mago Swift, [facility] Lead Mold Machine Operator Labor Relations Manager - 08/05/21 Clinical documented as of this encounter
--- OUTSIDE RECORDS SUMMARY | 2022-09-21 04:13 | XMS_ITS | Encounter Summary ---
:1980 Author Organization [place] Address [address] [place] [address] Care Team Providers Name Role Phone Aydee Burton SUPERVISING PRODUCER CARD READER Primary Care Provider Aydee Burton SUPERVISING PRODUCER CARD READER Unavailable [phone] Louisa Hood SUPERVISING PRODUCER CARD READER Unavailable [phone] Se Levy SHOE REPAIRER APPRENTICE Unavailable Unavailable Clari Ruiz [facility] Unavailable [phone] Angel Hannah MD Unavailable Lesly Celaya MD Unavailable Tawana Patel MA Unavailable Unavailable Ramses Mcpherson MD Unavailable [phone] Mago Swift ADJUSTMENT SUPERVISOR Unavailable Encounter Details Date Type Department Care Team Description 12/24/2021 [facility] for [facility] other viral diseases [address] [place] [address] Social History Tobacco Use Types Packs/Day Years [...] How often do you attend holiness or samaritan services? Never 08/05/2021 Do you belong to [...] Date Recorded Female 11/09/2021 7:53 PM ENTRY ANALYST COVID-19 Exposure Response Date Recorded In the last month, have you been in contact with No / Unsure 12/24/2021 1:43 PM ENTRY ANALYST someone who was confirmed or suspected to have Coronavirus / COVID-19? documented as of this encounter Plan of Treatment Upcoming Encounters Date Type Specialty Care Team Description 09/26/2022 Appointment Speech Therapy Obdulio Barrera MD 420 [facility] 276 [place], [place] [address] Anabel Chew SLP [place] 600646 [facility] 396 [place], [place] [address] 09/27/2022 Therapy Visit Physical Therapy Luisana Watkins, PT [address] [facility] [place] [address] 09/29/2022 Virtual Visit Pain & Palliative Marilia Deluna, [facility] PhD [address] [place] [address] 09/30/2022 Office Visit Family Practice Aydee Burtonlotte, SUPERVISING PRODUCER CARD READER [address] [place], [place] [address] 10/03/2022 Therapy Visit Physical Therapy Una Reardon, PT 2154 [place] [phone] 10/10/2022 Hospital Encounter Surgery Lesly Celaya MD [address] [place], [place] [phone] 10/10/2022 Office Visit Surgery Lesly Celaya MD [address] [place], [place] [phone] Ninoska Flowers PA-C [address] [facility] 300 [place] [address] 10/10/2022 Surgery Surgery Lesly Celaya, EXCISION, MASSES - MD back, abdomen, [address] extremity [place], [place] [phone] 10/11/2022 Virtual Visit Clari Su, [facility] [address] [place] [phone] [place] [address] 10/14/2022 Appointment Speech Therapy Anabel Chew, PARKING LOT SPOTTER [facility] 516 [facility] 396 [place], [place] [phone] 10/21/2022 Office Visit Pulmonology Obdulio Barrera MD 420 [facility] 276 [place], [place] [address] 10/25/2022 PRE VISIT ENT Charo Burton MD Previsit 909 [place], [place] [address] 10/25/2022 Office Visit ENT Charo Burton MD [address] [place] [address] 10/25/2022 Office Visit ENT Provider, 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 Trimmer Buffing Wheel 10/28/2022 Appointment Speech Therapy Anabel Chew, PARKING LOT SPOTTER [address] [place], [place] [address] 11/17/2022 Appointment Speech Therapy Anabel Chew PARKING LOT SPOTTER [address] 396 [place] [address] 12/23/2022 Office Visit Neurology Colby Yeung MD [address] [place] [address] Scheduled Procedures Name Priority Associated Diagnoses Date/Time EXCISION, MASS, TORSO Lipoma of skin and subcuta neous 10/10/2022 7:30 AM ENTRY ANALYST tissue documented as of this encounter Procedures Procedure Name Priority Date/Time Associated Diagnosis Comme nts COVID-19 VIRUS Routine 12/24/2021 1:45 PM Encounter for Result s for this (CORONAVIRUS) BY ENTRY ANALYST screening for other proc edure are in PCR viral diseases the results section. documented in this encounter Results Asymptomatic COVID-19 Virus (Coronavirus) by PCR Nose (12/24/2021 1:45 PM ENTRY ANALYST) [facility] Method Time Signature SARS CoV2 PCR Negative Negative, 12/25/2021 [facility] Testing sent to 11:04 AM LABORATORY reference lab. ENTRY ANALYST Results will be returned via unsolicited result Comment: NEGATIVE: SARS-CoV-2 (COVID-19) RNA not detected, presumed negative. Specimen Anatomical Collection Method Collection Time Receive d Time (Source) Location / / Volume Laterality Swab NASAL STRUCTURE / Non-blood 12/24/2021 1:45 PM 12/14 1:45 Unknown Collection / ENTRY ANALYST PM ENTRY ANALYST Unknown Narrative [facility] - 12/25/2021 11:04 AM ENTRY ANALYST Testing was performed using the amara SARS-CoV-2 assay on the amara [employer] System. This test should be ordered for the detection of SARS-CoV-2 in individuals who meet SARS- CoV-2 clinical and/or epidemiological criteria. Test performan ce is unknown in asymptomatic patients. This test is for in vitro diag nostic use under the FDA EUA for laboratories certified under CLIA to perform high and/or moderate complexity testing. This test has not be en FDA cleared or approved. A negative result does not rule out the pr esence of PCR inhibitors in the specimen or target RNA in concentrat ion below the limit of detection for the assay. The possibility of a false negative should be considered if the patient's recent ex posure or clinical presentation suggests COVID-19. This urbano t was validated by the [facility] Infectious Diseases Diag nostic Laboratory. This laboratory is certified under the [facility] Laboratory Improvement Amendments of 1988 (CLIA-88) as qualifie d to perform high and/or moderate complexity laboratory testing. Ramses Mcpherson MD LAB - MICRO GENERAL ORDERABL ES Performing Organization Address City/State/ZIP Code Phon e Number [facility] [place] [address]ag[address] [facility], Room D297 [facility] Infectious [place], [place] [phone] Diseases Diagnostic [phone], [facility] Lab (IDDL) 420 [facility], Room D297 documented in this encounter Visit Diagnoses Diagnosis Encounter for screening for other viral diseases Lipoma of skin and subcutaneous tissue Lipoma of other skin and subcutaneous ti ssue documented in this encounter Additional Health Concerns Assessment Noted Time PHQ-9 Depression Total Score: 22 06/28/2021 7:03 AM CD T documented as of this encounter Care Teams White Work Cleaner Relationship Specialty Start Date End Date Aydee Burton, PCP - General Nurse Practitioner - 05/17/21 SUPERVISING PRODUCER CARD READER Family [address] [place], [place] [address] Aydee Burton, Assigned PCP 04/28/21 SUPERVISING PRODUCER CARD READER [address] [place], [place] [phone] Louisa Hood, Assigned Neuroscience 07/11/21 SUPERVISING PRODUCER CARD READER Provider 500 [place], [place] [phone] Se Levy, Lead Sky Cap 08/05/21 05/12/22 [facility] Clari Ruiz Pharmacist Pharmacist 08/06/21 06/07/22 [facility] [address] [place], [place] [address] [place], Assigned Sleep 08/01/21 Angel Turcios, Provider [address] [place] [address] Lesly Celaya MD Assigned Surgical 09/05/21 [address] Provider [place], [place] [phone] Tawana Patel MA [facility] 09/30/21 Worker Ramses Mcpherson Assigned OBGYN 11/07/21 MD Onesimo Provider [address] [place] [address] Mago Swift [facility] Lead Sky Cap General Service Technician - 08/05/21 Clinical documented as of this encounter
--- OUTSIDE RECORDS SUMMARY | 2022-09-21 04:13 | XMS_ITS | Encounter Summary ---
:1980 Author Organization [place] Address [address] [facility] [place] [address] Care Team Providers Name Role Phone Aydee Burton HIM TECH PARKING LOT CHAUFFEUR Primary Care Provider [phone] Aydee Burton HIM TECH PARKING LOT CHAUFFEUR Unavailable [phone] Louisa Hood HIM TECH [place]ARKING [place] CHAUFFEUR Unavailable [phone] Se Leyv VICE PRESIDENT FOR PHILANTHROPY Unavailable Unavailable Clari Ruiz [facility] Unavailable [phone] Angel Hannah MD Unavailable Lesly Celaya MD Unavailable Tawana Patel MA Unavailable Unavailable Ramses Mcpherson MD Unavailable [phone] Mago Swift PUBLIC SPEAKER Unavailable Encounter Details Date Type Department Care Team Description 12/14/2021 Travel Social History Tobacco Use Types Packs/Day [...] er 08/05/2021 How often do you attend amish or gnosticism services? Never 08/05/2021 Do you belong to any clubs or organizations such as amish N o 08/05/2021 groups, unions, fraternal or [...] at Date Recorded Female 11/09/2021 7:53 PM BEAUTY ARTIST COVID-19 Exposure Response Date Recorded In the last month, have you been in contact with No / Unsure 12/14/2021 2:40 PM BEAUTY ARTIST someone who was confirmed or suspected to have Coronavirus / COVID-19? documented as of this encounter Plan of Treatment Upcoming Encounters Date Type Specialty Care Team Description 09/26/2022 Appointment Speech Therapy Obdulio Barrera MD 420 [facility] 276 [place], [place] [address] Anabel Chew, FACILITIES MANAGEMENT EXECUTIVE [place] 483[address] [facility] 396 [place], [place] [address] 09/27/2022 Therapy Visit Physical Therapy Luisana Watkins, PT [address] [place] [address] 09/29/2022 Virtual Visit Pain & Palliative Marilia Deluna Care PhD [address] [facility] [place] [address] 09/30/2022 Office Visit Family Practice Aydee Burton, HIM TECH [address] [address] [place], [place] [phone] 10/03/2022 Therapy Visit Physical Therapy David-Una Tang, PT [address] [place] [address] 10/10/2022 Hospital Encounter Surgery Lesly Celaya MD [address] [place] [address] 10/10/2022 Office Visit Surgery Lesly Celaya MD [address] [place] [address] Ninoska Flowers PA-Ynes [address] [place] [address] 10/10/2022 Surgery Surgery Lesly Celaya, EXCISION, MASSES - MD back, abdomen, [address] [place] [address] 10/11/2022 Virtual Visit Clari Su, [facility] [address] [address] 10/14/2022 Appointment Speech Therapy Anabel Chew, FACILITIES MANAGEMENT EXECUTIVE [facility] 516 [facility] 396 [place], [place] [address] 10/21/2022 Office Visit Pulmonology Obdulio Barrera MD 420 [facility] 276 [place] [address] 10/25/2022 PRE VISIT ENT Charo Burton MD Previsit 909 [place] [address] 10/25/2022 Office Visit ENT Charo Burton MD [address]09 [place] [address] 10/25/2022 Office Visit ENT Provider, 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 Production Quality Analyst 10/28/2022 Appointment Speech Therapy Anabel Chew, FACILITIES MANAGEMENT EXECUTIVE [address] [address] 11/17/2022 Appointment Speech Therapy Anabel Chew, FACILITIES MANAGEMENT EXECUTIVE [address] 72[address]75 12/23/2022 Office Visit Neurology Colby Yeung MD [address] [address] Scheduled Procedures Name Priority Associated Diagnoses Date/Time EXCISION, MASS, TORSO Lipoma of skin and subcuta neous 10/10/2022 7:30 AM BEAUTY ARTIST tissue documented as of this encounter Visit Diagnoses Not on filedocumented in this encounter Additional Health Concerns Assessment Noted Time PHQ-9 Depression Total Score: 22 06/28/2021 7:03 AM CD T documented as of this encounter Care Teams Extractor Loader And Unloader Relationship Specialty Start Date End Date Aydee Burton, PCP - General Nurse Practitioner - 05/17/21 HIM TECH [place]AUFFEUR Family [address] [place] [address] [phone] Aydee Burton, Assigned PCP 04/28/21 HIM TECH [facility] [address] [place], [place] [phone] Louisa Hood, Assigned Neuroscience 07/11/21 HIM TECH [address] [address] [place] Provider [address] [place] [address] Se Levy, Lead Good Humor Vendor 08/05/21 05/12/22 [facility] Clari Ruiz Pharmacist Pharmacist 08/06/21 06/07/22 [facility] [address] [place] [address] [place], Assigned Sleep 08/01/21 Angel Turcios, Provider [address] [place] [address] Lesly Celaya MD Assigned Surgical 09/05/21 [address] [place] [place] [address] Tawana Patel MA [facility] 09/30/21 Worker Ramses Mcpherson Assigned OBGYN 11/07/21 MD Onesimo Provider [address] [place] [address] Mago Swift, [facility] Lead Good Humor Vendor Steam Blocker - 08/05/21 Clinical documented as of this encounter
--- OUTSIDE RECORDS SUMMARY | 2022-09-21 04:13 | XMS_ITS | Encounter Summary ---
:1980 Author Organization [place] Address [address] [facility] [place] [address] Care Team Providers Name Role Phone Aydee Burton BOMB SQUAD OFFICER DINING ROOM HOST/HOSTESS Primary Care Provider [phone] Aydee Burton BOMB SQUAD OFFICER DINING ROOM HOST/HOSTESS Unavailable [phone] Louisa Hood BOMB SQUAD OFFICER DINING ROOM HOST/HOSTESS Unavailable [phone] Se Levy PEN RULER OPERATOR Unavailable Unavailable Clari Ruiz [facility] Unavailable [phone] Angel Hannah MD Unavailable Lesly Celaya MD Unavailable Taawna Patel MA Unavailable Unavailable Ramses Mcpherson MD Unavailable [phone] Mago Swift FURNACE MECHANIC HELPER Unavailable Encounter Details Date Type Department Care Team Description 12/20/2021 Travel Social History Tobacco Use Types Packs/Day [...] How often do you attend orthodox or moravian services? Never 08/05/2021 Do you [...] at Date Recorded Female 11/09/2021 7:53 PM WELDING MACHINE OPERATOR ULTRASONIC COVID-19 Exposure Response Date Recorded In the last month, have you been in contact with No / Unsure 12/20/2021 5:04 PM WELDING MACHINE OPERATOR ULTRASONIC someone who was confirmed or suspected to have Coronavirus / COVID-19? documented as of this encounter Plan of Treatment Upcoming Encounters Date Type Specialty Care Team Description 09/26/2022 Appointment Speech Therapy Obdulio Barrera MD 420 [facility] 276 [place], [place] [address] Anabel Chew, VISUAL EDUCATOR [place] 027016 [facility] 396 [place], [place] [address] 09/27/2022 Therapy Visit Physical Therapy Luisana Watkins, PT [address] [place] [address] 09/29/2022 Virtual Visit Pain & Palliative Marilia Deluna Care PhD [address] [facility] [place] [address] 09/30/2022 Office Visit Family Practice Aydee Burton, BOMB SQUAD OFFICER DINING ROOM HOST/HOSTESS [address] [place], [place] [phone] 10/03/2022 Therapy Visit Physical Therapy David-Una Tang, PT [address] [place] [address] 10/10/2022 Hospital Encounter Surgery Lesly Celaya MD [address] [place] [address] 10/10/2022 Office Visit Surgery Lesly Celaya MD [address] [place] [address] Ninoska Flowers PA-Ynes [address] [place] [address] 10/10/2022 Surgery Surgery Lesly Celaya, EXCISION, MASSES - MD back, abdomen, [address] [place] [address] 10/11/2022 Virtual Visit Clari Su, [facility] [address] [address] 10/14/2022 Appointment Speech Therapy Anabel Chew, VISUAL EDUCATOR [facility] 516 [facility] 396 [place], [place] [address] 10/21/2022 Office Visit Pulmonology Obdulio Barrera MD 420 [facility] 276 [place] [address] 10/25/2022 PRE VISIT ENT Charo Burton MD Previsit 909 [place] [address] 10/25/2022 Office Visit ENT Charo Burton MD 909 [place] [address] 10/25/2022 Office Visit ENT Provider, 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 Client Engagement Manager 10/28/2022 Appointment Speech Therapy Anabel Chew, VISUAL EDUCATOR [address] [address] 11/17/2022 Appointment Speech Therapy Anabel Chew, VISUAL EDUCATOR [address] [address] 12/23/2022 Office Visit Neurology Colby Yeung MD [address] [address]64[address] Scheduled Procedures Name Priority Associated Diagnoses Date/Time EXCISION, MASS, TORSO Lipoma of skin and subcuta neous 10/10/2022 7:30 AM WELDING MACHINE OPERATOR ULTRASONIC tissue documented as of this encounter Visit Diagnoses Not on filedocumented in this encounter Additional Health Concerns Assessment Noted Time PHQ-9 Depression Total Score: 22 06/28/2021 7:03 AM CD T documented as of this encounter Care Teams Observatory Director Relationship Specialty Start Date End Date Aydee Burton, PCP - General Nurse Practitioner - 05/17/21 BOMB SQUAD OFFICER DINING ROOM HOST/HOSTESS Family [address] [place] [address] [phone] Aydee Burton, Assigned PCP 04/28/21 BOMB SQUAD OFFICER [facility] 21[address] [place], [place] [phone] Louisa Hood, Assigned Neuroscience 07/11/21 BOMB SQUAD OFFICER DINING ROOM HOST/HOSTESS Provider [address] [place] [address] Se Levy, Lead Cutter Out 08/05/21 05/12/22 [facility] Clari Ruiz Pharmacist Pharmacist 08/06/21 06/07/22 [facility] [address] [place] [address] [place], Assigned Sleep 08/01/21 Angel Turcios, Provider [address] [place] [address] Lesly Celaya MD Assigned Surgical 09/05/21 [address] [place] [address] Tawana Patel MA [facility] 09/30/21 Worker Ramses Mcpherson Assigned OBGYN 11/07/21 MD Onesimo Provider [address] [place] [address] Mago Swift, [facility] Lead Cutter Out School Administrator - 08/05/21 Clinical documented as of this encounter
--- OUTSIDE RECORDS SUMMARY | 2022-09-21 04:13 | XMS_ITS | Encounter Summary ---
:1980 Author Organization [facility] Address [address] [place] [address] Care Team Providers Name Role Phone Aydee Burton BUDGET CLERK CSO Primary Care Provider Aydee Burton BUDGET CLERK CSO Unavailable [phone] Louisa Hood BUDGET CLERK CSO Unavailable [phone] Se Levy COMPUTER INSTALLATION ENGINEER Unavailable Unavailable Clari Ruiz [facility] Unavailable [phone] Angel Hannah MD Unavailable Lesly Celaya MD Unavailable Tawana Patel MA Unavailable Unavailable Ramses Mcpherson MD Unavailable [phone] Mago Swift ENVIRONMENTAL SPECIALIST Unavailable Reason for Visit Reason Onset Date Comments Patient Request 12/23/2021 Encounter Details Date Type Department Care Team Description 12/23/2021 [facility] Ramses Mcpherson , Patient Request [facility] MD [place] [address] [place] [address] [address] [place] [address] Social History Tobacco Use Types [...] How often do you attend yazidism or presybeterian services? Never 08/05/2021 Do you [...] at Date Recorded Female 11/09/2021 7:53 PM ARCHITECT NAVAL COVID-19 Exposure Response Date Recorded In the last month, have you been in contact with No / Unsure 12/24/2021 1:43 PM ARCHITECT NAVAL someone who was confirmed or suspected to have Coronavirus / COVID-19? documented as of this encounter Miscellaneous Notes Telephone Encounter - Radha Finney RN - 12/23/2021 3:33 PM CST Images from the original note were not included. Ramses Mcpherson MD [facility] Triage 1 minute ago (3:29 PM) CS Called patient. ??Instructed her to remain very careful regarding COVID precautions until surgery. ??Complete quarantine not required. Dr. Mcpherson Message text [employer] Telephone Encounter - Nancy José RN - 12/23/2021 2:09 PM CST Pt calling, stating she has her pre-op covid test tomorrow and was advised to quarantine after this until surgery. She is scheduled to work Fri, Sat, Sun & Mon. She would need a note to quarantine for these daysor else have the OK to not quarantine from you. Nancy José RN [employer] documented in this encounter Plan of Treatment Upcoming Encounters Date Type Specialty Care Team Description 09/26/2022 Appointment Speech Therapy Obdulio Barrera MD [address] [facility] [address] [place], [place] [address] Anabel Chew, COMMISSIONS ANALYST [address] [place], [place] [address] 09/27/2022 Therapy Visit Physical Therapy Luisana Watkins, PT [address] [place] [address] 09/29/2022 Virtual Visit Pain & Palliative Marilia Deluna, [facility] PhD [address] [place] [address] 09/30/2022 Office Visit Family Practice Aydee Burton, BUDGET CLERK CSO [address] [place], [place] [phone] 10/03/2022 Therapy Visit Physical Therapy Una Reardon, PT [address] [place] [phone] 10/10/2022 Hospital Encounter Surgery Lesly Celaya MD [address] [place], [place] [address] 10/10/2022 Office Visit Surgery Lesly Celaya MD [address] [place], [place] [address] Ninoska Flowers PA-C [address] [place], [place] [address] 10/10/2022 Surgery Surgery Lesly Celaya, EXCISION, MASSES - MD back, abdomen, [address] extremity [place], [place] [phone] 10/11/2022 Virtual Visit Pharm Bryce Ruiz, Clari Banks, [address] [address] 10/14/2022 Appointment Speech Therapy Anabel Chew, COMMISSIONS ANALYST [facility] [address] [facility] [address] [place], [place] [address] 10/21/2022 Office Visit Pulmonology Obdulio Barrera MD [address] [facility] [address] [place], [place] [address] 10/25/2022 PRE VISIT ENT Charo Burton MD Previsit [address] [place] [address] 10/25/2022 Office Visit Charo Carter MD [address] [place] [address] 10/25/2022 Office Visit ENT Provider, 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 Qc Manager 10/28/2022 Appointment Speech Therapy Anabel Chew, COMMISSIONS ANALYST [address] [place] [address] 11/17/2022 Appointment Speech Therapy Anabel Chew, COMMISSIONS ANALYST [address] [place] [address] 12/23/2022 Office Visit Neurology Colby Yeung MD [address] [id number] Scheduled Procedures Name Priority Associated Diagnoses Date/Time EXCISION, MASS, TORSO Lipoma of skin and subcuta neous 10/10/2022 7:30 AM ARCHITECT NAVAL tissue documented as of this encounter Visit Diagnoses Not on filedocumented in this encounter Additional Health Concerns Assessment Noted Time PHQ-9 Depression Total Score: 22 06/28/2021 7:03 AM CD T documented as of this encounter Care Teams Fleshing Machine Operator Relationship Specialty Start Date End Date Aydee Burton, PCP - General Nurse Practitioner - 05/17/21 BUDGET CLERK CSO Family [address] [place] [id number] Aydee Burton, Assigned PCP 04/28/21 BUDGET CLERK CSO [address] [place], [place] [address] Louisa Hood, Assigned Neuroscience 07/11/21 BUDGET CLERK CSO Provider [address] [place], [place] [address] Se Levy, Lead Paraplanner 08/05/21 05/12/22 Clari Francois Pharmacist Pharmacist 08/06/21 06/07/22 Jocelyn [facility] [address] [facility] [address] [place], [place] [address] [place], Assigned Sleep 08/01/21 Angel Turcios, Provider [address] [place], [place] [address] Lesly Celaya MD Assigned Surgical 09/05/21 [address] Provider [place], [place] [phone] Tawana Patel MA [facility] 09/30/21 Worker Ramses Mcpherson Assigned OBGYN 11/07/21 MD Onesimo Provider [address] [place] [address] Mago Swift [facility] Lead Paraplanner Bakery Products Checker - 08/05/21 Clinical documented as of this encounter
--- OUTSIDE RECORDS SUMMARY | 2022-09-21 04:13 | XMS_ITS | Encounter Summary ---
:1980 Author Organization [facility] Address [address] [facility] [place] [address] Care Team Providers Name Role Phone Aydee Burton SITE MANAGER WHITE KID BUFFER Primary Care Provider [phone] Aydee Burton SITE MANAGER WHITE KID BUFFER Unavailable [phone] Louisa Hood SITE MANAGER WHITE KID BUFFER Unavailable [phone] Se Levy KNOCKDOWN MAN Unavailable Unavailable Clari Ruiz [facility] Unavailable [phone] Angel Hannah MD Unavailable Lesly Celaya MD Unavailable Tawana Patel MA Unavailable Unavailable Ramses Mcpherson MD Unavailable [phone] Mago Swift TECHNICAL ACCOUNT MANAGER Unavailable Encounter Details Date Type Department Care Team Description 11/16/2021 Travel Social History Tobacco Use Types Packs/Day [...] er 08/05/2021 How often do you attend sikhism or pentecostalism services? Never 08/05/2021 Do you belong to any clubs or organizations such as sikhism N o 08/05/2021 groups, unions, fraternal or [...] at Date Recorded Female 11/09/2021 7:53 PM GLUED WOOD TESTER COVID-19 Exposure Response Date Recorded In the last month, have you been in contact with No / Unsure 11/16/2021 3:28 PM GLUED WOOD TESTER someone who was confirmed or suspected to have Coronavirus / COVID-19? documented as of this encounter Plan of Treatment Upcoming Encounters Date Type Specialty Care Team Description 09/26/2022 Appointment Speech Therapy Obdulio Barrera MD [address] [facility] [address] [place], [place] [address] Anabel Chew, PHLEBOTOMIST ASSOCIATE [place] [address] [facility] [address] [place], [place] [address] 09/27/2022 Therapy Visit Physical Therapy Luisana Watkins, PT [address] [place] [address] 09/29/2022 Virtual Visit Pain & Palliative Marilia Deluna Care PhD [address] [facility] [place] [address] 09/30/2022 Office Visit Family Practice Aydee Burton, SITE MANAGER WHITE KID BUFFER [address] [place], [place] [phone] 10/03/2022 Therapy Visit Physical Therapy David-Una Tang, PT [address] [place] [address] 10/10/2022 Hospital Encounter Surgery Lesly Celaya MD [address] [place] [address] 10/10/2022 Office Visit Surgery Lesly Celaya MD [address] [place] [address] Ninoska Flowers PA-Ynes [address] [place] [address] 10/10/2022 Surgery Surgery Lesly Celaya, EXCISION, MASSES - MD back, abdomen, [address] [place] [address] 10/11/2022 Virtual Visit Clari Su, [facility] [address] [id number] 10/14/2022 Appointment Speech Therapy Anabel Chew, PHLEBOTOMIST ASSOCIATE [facility] [address] [facility] 396 [place], [place] [address] 10/21/2022 Office Visit Pulmonology Obdulio Barrera MD [address] [facility] [address] [place] [address] 10/25/2022 PRE VISIT ENT Charo Burton MD Previsit [address] [place] [address] 10/25/2022 Office Visit ENT Charo Burton MD [address] [place] [address] 10/25/2022 Office Visit ENT Provider, 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 Manager Game 10/28/2022 Appointment Speech Therapy Anabel Chew, PHLEBOTOMIST ASSOCIATE [address] [phone] 11/17/2022 Appointment Speech Therapy Anabel Chew, PHLEBOTOMIST ASSOCIATE [address] [address] 12/23/2022 Office Visit Neurology Colby Yeung MD [address] [address] Scheduled Procedures Name Priority Associated Diagnoses Date/Time EXCISION, MASS, TORSO Lipoma of skin and subcuta neous 10/10/2022 7:30 AM GLUED WOOD TESTER tissue documented as of this encounter Visit Diagnoses Not on filedocumented in this encounter Additional Health Concerns Assessment Noted Time PHQ-9 Depression Total Score: 22 06/28/2021 7:03 AM CD T documented as of this encounter Care Teams Sewing Trimmer Relationship Specialty Start Date End Date Aydee Burton, PCP - General Nurse Practitioner - 05/17/21 SITE MANAGER WHITE KID BUFFER Family [address] [place] [phone] Aydee Burton, Assigned PCP 04/28/21 SITE MANAGER [facility] [address] [place], [place] [phone] Louisa Hood, Assigned Neuroscience 07/11/21 SITE MANAGER WHITE KID BUFFER Provider [address] [place] [address] Se Levy, Lead Deli Bakery Clerk 08/05/21 05/12/22 [facility] Clari Ruiz Pharmacist Pharmacist 08/06/21 06/07/22 [facility] [address] [place] [address] [place], Assigned Sleep 08/01/21 Angel Turcios, Provider [address] [place] [address] Lesly Celaya MD Assigned Surgical 09/05/21 [address] [place] [address] Tawana Patel MA [facility] 09/30/21 Worker Ramses Mcpherson Assigned OBGYN 11/07/21 MD Onesimo Provider [address] [place] [address] Mago Swift, [facility] Lead Deli Bakery Clerk Beader - 08/05/21 Clinical documented as of this encounter
--- OUTSIDE RECORDS SUMMARY | 2022-09-21 04:13 | XMS_ITS | Encounter Summary ---
:1980 Author Organization [place] Address [address] [facility] [place] [address] Care Team Providers Name Role Phone Aydee Nam APRN COORDINATOR OF PLACEMENT Primary Care Provider [phone] Aydee Nam APRN COORDINATOR OF PLACEMENT Unavailable [phone] Louisa Hood MEDICAL INVESTIGATOR COORDINATOR OF PLACEMENT Unavailable [phone] Se Levy SEWER LINE REPAIRER Unavailable Unavailable Clari Ruiz [facility] Unavailable [phone] Angel Hannah MD Unavailable Lesly Celaya MD Unavailable Tawana Patel MA Unavailable Unavailable Ramses Mcpherson MD Unavailable [phone] Mago Swift CAMPAIGN WORKER Unavailable Reason for Visit Reason Comments Pre-Op Exam Encounter Details Date Type Department Care Team Description 12/10/2021 Office Visit [facility] Aydee Nam gene ral physical exam (Primary Dx); [facility] [place] C[place] Uterine leiomyoma, unspecified location; [address] [place] [address] with irregular cycle; [address] Status post endometrial ablation [place], [place], [place] [phone] Social History Tobacco Use Types Packs/Day Years [...] often do you attend latter day or temple services? Never 08/05/2021 Do you [...] at Date Recorded Female 11/09/2021 7:53 PM CHRONOMETER TESTER COVID-19 Exposure Response Date Recorded In the last month, have you been in contact with No / Unsure 12/10/2021 8:26 AM CHRONOMETER TESTER someone who was confirmed or suspected to have Coronavirus / COVID-19? documented as of this encounter Last Filed Vital Signs Vital Sign Reading Time Taken Comments Blood Pressure 114/72 12/10/2021 8:55 AM CHRONOMETER TESTER Pulse 107 12/10/2021 8:55 AM CHRONOMETER TESTER Temperature 36.3 ??C (97.3 ??F) 12/10/2021 8:55 AM CHRONOMETER TESTER Respiratory Rate - - Oxygen Saturation 100% 12/10/2021 8:55 AM CHRONOMETER TESTER Inhaled Oxygen Concentration - - Weight 92.5 kg (204 lb) 12/10/2021 8:55 AM CHRONOMETER TESTER Height 170.2 cm (5' 7) 12/10/2021 8:55 AM CHRONOMETER TESTER Body Mass Index 31.95 12/10/2021 8:55 AM CHRONOMETER TESTER documented in this encounter Patient Instructions Patient InstructionsAydee Nam, ELADIO COORDINATOR OF PLACEMENT - 12/10/2021 8:50 AM CHRONOMETER TESTER Preparing for Your Surgery Getting started A [...] list of medicines, including herbal treatments and zzai-nbs-xndexqg drugs ?? Whether the patient has a [...] having surgery. (If you don't have insurance,call [phone].) ?? Call your clinic if there's any [...] your health care provider. Copyright ?? 2018 [facility]. All rights reserved. Clinically reviewed by Tika Garrett MD. [employer] [id number] - REV 06/02. NOMETER TESTER documented in this encounter Progress Notes Aydee Nam APRN CNP - 12/10/2021 8:50 AM CST Images from the original note were not included. [address] [phone] Primary Provider: Aydee Nam Pre-op Performing Provider: AYDEE NAM PREOPERATIVE EVALUATION: Today's date: 12/10/2021 Marta Hill is a 41 year old female who presents for a preoperative evaluation. Surgical Information: Surgery/Procedure: TOTAL LAPAROSCOPIC HYSTERECTOMY Surgery Location: [facility] Surgeon: Dr Ramses Mcpherson Surgery Date: 12/28/2021 Time of Surgery: 7:30a Where patient plans to recover: At home with family Fax number for surgical facility: Note does not need to be faxed, will be available electronically in [facility]. Type of Anesthesia Anticipated: General Assessment & Plan The proposed surgical procedure is considered INTERMEDIATE risk. Preop general physical exam Uterine leiomyoma, unspecified location Menorrhagia with irregular cycle Status post endometrial ablation Cleared for surgery without concerns. Marta verbalizes understanding of plan of care and is in agreement. - HCG Qual, Urine ([id number]) Possible Sleep Apnea: Borderline sleep apnea needs dental apparatus Risks and Recommendations: None Medication Instructions: Wellbutrin, gabapentin, and Lamictal take in a.m. of surgery. Encourage no NSAIDS, aspirin or vitamin supplementation for the next 7 days. Tylenol is okay. RECOMMENDATION: APPROVAL GIVEN to proceed with proposed procedure, without further diagnostic evaluation. Subjective HPI related to upcoming procedure: Heavy painful menstrual bleeding and fibroids. Status post endometrial ablation set to have hysterectomy Preop Questions 12/10/2021 1. Have you ever had a heart attack or stroke? No 2. Have you ever had surgery on your heart or blood vessels, such as a stent placement, a coronary artery bypass, or surgery on an artery in your head, neck, heart, or legs? No 3. Do you have chest pain with activity? No 4. Do you have a history of heart failure? No 5. Do you currently have a cold, bronchitis or symptoms of other infection? No 6. Do you have a cough, shortness of breath, or wheezing? No 7. Do you or anyone in your family have previous history of blood clots? YES father paternal grandmother and maternal grandmother 8. Do you or does anyone in your family have a serious bleeding problem such as prolonged bleeding following surgeries or cuts? No 9. Have you ever had problems with anemia or been told to take iron pills? No 10. Have you had any abnormal blood loss such as black, tarry or bloody stools, or abnormal vaginal bleeding? YES -vag bleeding 11. Have you ever had a blood transfusion? No 12. Are you willing to have a blood transfusion if it is medically needed before, during, or after your surgery? Yes 13. Have you or any of your relatives ever had problems with anesthesia? Yes patient sleepy after surgery hard to wake up 14. Do you have sleep apnea, excessive snoring or daytime drowsiness? YES - borderline is going to get dental apparatus 14a. Do you have a CPAP machine? [...] a Health Care Directive or Living Will: Preoperative Review of CHRONOMETER TESTER: CHRONOMETER TESTER reviewed - controlled substances reflected in medication [...] Sleep apnea Borderline 4.8 per testing. (<5) ??? Uncomplicated asthma not sure from being [...] GENITOURINARY SURGERY Tubal ligation and ablasion ??? ONSHORE DIVER SURGERY not sure tubal ligation and ablasion [...] tablets - 120mg total ??? gabapentin (NEURONTIN) 800 MG tablet Take 1 tablet (800 mg) by mouth 3 times daily 90 tablet 0 ??? lamoTRIgine (LAMICTAL) 100 MG tablet Take by mouth daily And a 200mg ??? lamoTRIgine (LAMICTAL) 200 MG tablet Take by mouth daily ??? QUEtiapine (SEROQUEL) 100 MG tablet Take 1 tablet (100 mg) by mouth At Bedtime 30 tablet 2 ??? vitamin D3 (CHOLECALCIFEROL) 50 mcg (2000 units) tablet Take 1 tablet by mouth daily Allergies Allergen Reactions ??? Amoxicillin Rash Social [...] Son History Drug Use Unknown Objective BP 114/72 (BP Location: Right arm, Patient Position: Chair, Cuff Size: Adult Large) Pulse 107 Temp 97.3 ??F (36.3 ??C) (Tympanic) Ht 1.702 m (5' 7) Wt 92.5 kg (204 lb) LMP 11/15/2021 (Approximate) SpO2 100% No BMI 31.95 kg/m?? Physical Exam GENERAL APPEARANCE: healthy, alert [...] No cervical adenopathy Recent Labs Lab Test 08/30/21 1206 05/17/21 0803 HGB 13.2 12.9 PLT 302 277 INR 0.85 -- NA -- 139 POTASSIUM -- 3.6 CR -- 0.77 Diagnostics: Recent Results (from the past 24 hour(s)) HCG Qual, Urine ([id number]) Collection Time: 12/10/21 8:43 AM Result Value Ref Range hCG Urine Qualitative Negative Negative No EKG required, no history of coronary heart disease, significant arrhythmia, peripheral arterial disease or other structural heart disease. Revised Cardiac Risk Index (RCRI): The patient has the following serious cardiovascular risks for perioperative complications: - No serious cardiac risks = 0 points RCRI Interpretation: 0 points: Class I (very low risk - 0.4% complication rate) Signed Electronically by: Aydee Nam APRN CNP Copy of this evaluation report is provided to requesting physician. NOMETER TESTER documented in this encounter Miscellaneous Notes Result Encounter Note - Aydee Nam APRN CNP - 12/10/2021 8:50 AM CHRONOMETER TESTER Dear Marta, Here is a summary of your recent test results: Urine is negative. Good luck with surgery. For additional lab test information, [email or web address] is an excellent reference. In addition, here is a list of due or overdue Health Maintenance reminders: Depression Assessment due on 12/29/2021 Please call us at [phone] (or use [employer]) to address the above recommendations if needed. Thank you for choosing [facility]. It was an honor and a privilege to participate in your care. Healthy regards, TARA Spivey [facility] NOMETER TESTER documented in this encounter Plan of Treatment Upcoming Encounters Date Type Specialty Care Team Description 09/26/2022 Appointment Speech Therapy Obdulio Barrera MD [address] [facility] 276 [place], [place] [address] Anabel Chew, MEAT STRINGER [facility] [address] [facility] [address] [place], [place] [address] 09/27/2022 Therapy Visit Physical Therapy Luisana Watkins, PT [address] [place] [address] 09/29/2022 Virtual Visit Pain & Palliative Marilia Deluna, Care PhD [address] [place], [place] [address] 09/30/2022 Office Visit Family Practice Aydee Nam APRN COORDINATOR OF PLACEMENT [address] [place] [phone] 10/03/2022 Therapy Visit Physical Therapy Una eRardon, PT [address] [place] [phone] 10/10/2022 Hospital Encounter Surgery Lesly Cleaya MD [address] [place], [place] [phone] 10/10/2022 Office Visit Surgery Lesly Celaya MD [address] [place] [address] Ninoska Flowers, PHILIPPE [address] [place], [place] [phone] 10/10/2022 Surgery Surgery Lesly Celaya, EXCISION, MASSES - MD back, abdomen, [address] extremity [place], [place] [phone] 10/11/2022 Virtual Visit Pharm Bryce Ruiz, Clari Banks, [place] [id number] [address] 10/14/2022 Appointment Speech Therapy Anabel Chew, MEAT STRINGER [address] [address] 10/21/2022 Office Visit Pulmonology Obdulio Barrera MD [address] [place] [address] 276 [place], [place] [address] 10/25/2022 PRE VISIT ENT Charo Burton MD Previsit [address] [place], [place] [address] 10/25/2022 Office Visit ENT Charo Burton MD [address] [place], [place] [address] 10/25/2022 Office Visit ENT Provider, 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 Mortuary Beautician 10/28/2022 Appointment Speech Therapy Anabel Chew, MEAT STRINGER [address] [address] 11/17/2022 Appointment Speech Therapy Anabel Chew, MEAT STRINGER [place] 367526 [facility] 396 [place], [place] [address] 12/23/2022 Office Visit Neurology Colby Yeung MD [address] [place] [address] Scheduled Procedures Name Priority Associated Diagnoses Date/Time EXCISION, MASS, TORSO Lipoma of skin and subcuta neous 10/10/2022 7:30 AM CHRONOMETER TESTER tissue documented as of this encounter Procedures Procedure Name Priority Date/Time Associated Comments Diagnosis HCG QUALITATIVE URINE Routine 12/10/2021 8:43 AM Preop general Results for this CHRONOMETER TESTER physical exam procedure are in the results section. documented in this encounter Results HCG Qual, Urine ([id number]) (12/10/2021 8:43 AM CHRONOMETER TESTER) [facility] Method Time Signature hCG Urine Negative Negative NIKOLAS 12/10/2021 [facility] Qualitative 9:14 AM CHRONOMETER TESTER Comment: This test is for screening purp oses. Results should be interpreted along with the clinical picture. Confirmation testing is available if warranted by ordering [id number], HCG Quantitative . Specimen Anatomical Collection Method Collection Time Receive d Time (Source) Location / / Volume Laterality Urine MID-STREAM URINE Non-blood 12/10/2021 8:43 AM 12/10 9:08 SPECIMEN / Unknown Collection / CHRONOMETER TESTER AM CHRONOMETER TESTER Unknown Aydee Nam APRN COORDINATOR OF PLACEMENT LAB - URINE ORDERABLES Performing Organization Address City/State/ZIP Code Phon e Number [place] [address] [facility] [address] [facility] S[address] E. Lab (no room number, 1st floor of clinic) [place] [address], [facility] [address] [facility] [address]. Lab (no room number, 1st floor of clinic) documented in this encounter Visit Diagnoses Diagnosis Preop general physical exam - Primary Other specified pre-operative examinatio n Uterine leiomyoma, unspecified location Menorrhagia with irregular cycle Excessive or frequent menstruation Status post endometrial ablation Other postprocedural status Lipoma of skin and subcutaneous tissue Lipoma of other skin and subcutaneous ti ssue documented in this encounter Additional Health Concerns Assessment Noted Time PHQ-9 Depression Total Score: 22 06/28/2021 7:03 AM CD T documented as of this encounter Care Teams Cytometry Technologist Relationship Specialty Start Date End Date Aydee Nam, PCP - General Nurse Practitioner - 05/17/21 MEDICAL INVESTIGATOR COORDINATOR OF PLACEMENT Family [address] [place] [address] [phone] Aydee Nam, Assigned PCP 04/28/21 MEDICAL INVESTIGATOR COORDINATOR OF PLACEMENT [address] [place] [address] Louisa Hood, Assigned Neuroscience 07/11/21 MEDICAL INVESTIGATOR COORDINATOR OF PLACEMENT Provider [address] [place] [address] [phone] Se Levy, Lead Lcac Operator 08/05/21 05/12/22 Clari Francois Pharmacist Pharmacist 08/06/21 06/07/22 [facility] [address] [place], [place] [phone] [place], Assigned Sleep 08/01/21 Angel Turcios, Provider [address] [place], [place] [phone] Lesly Celaya MD Assigned Surgical 09/05/21 [address] [place] [place] [address] Tawana Patel MA [facility] 09/30/21 Worker Ramses Mcpherson Assigned OBGYN 11/07/21 MD Onesimo Provider [address] [place], [place] [phone] Mago Swift, [facility] Lead Lcac Operator [place] - 08/05/21 Clinical documented as of this encounter
--- OUTSIDE RECORDS SUMMARY | 2022-09-21 04:13 | XMS_ITS | Encounter Summary ---
:1980 Author Organization [place] Address [address] [place] [address] Care Team Providers Name Role Phone Aydee Burton CREDIT CONSULTANT CREDIT CHECKER Primary Care Provider Aydee Burton APRN CREDIT CHECKER Unavailable [phone] Louisa Hood CREDIT CONSULTANT CREDIT CHECKER Unavailable [phone] Se Levy BUILDING ENGINEER Unavailable Unavailable Clari Ruiz [facility] Unavailable [phone] Angel Hannah MD Unavailable Lesly Celaya MD Unavailable Tawana Patel MA Unavailable Unavailable Ramses Mcpherson MD Unavailable [phone] Mago Swift BUSINESS SYSTEMS CONSULTANT Unavailable Reason for Visit Reason Comments Ear Problem right ear pain x 2 days- hav ing pain Encounter Details Date Type Department Care Team Description 12/24/2021 Office Visit [facility] Nasim Milton M D Infective otitis Urgent Care [facility] [address] externa, right [address] (Primary Dx) [place] [phone] Social History Tobacco Use Types Packs/Day Years [...] How often do you attend anabaptist or adventism services? Never 08/05/2021 Do you [...] at Date Recorded Female 11/09/2021 7:53 PM PUBLIC HEALTH INFORMATICIAN COVID-19 Exposure Response Date Recorded In the last month, have you been in contact with No / Unsure 12/24/2021 1:43 PM PUBLIC HEALTH INFORMATICIAN someone who was confirmed or suspected to have Coronavirus / COVID-19? documented as of this encounter Last Filed Vital Signs Vital Sign Reading Time Taken Comments Blood Pressure 118/66 12/24/2021 1:52 PM PUBLIC HEALTH INFORMATICIAN Pulse 94 12/24/2021 1:52 PM PUBLIC HEALTH INFORMATICIAN Temperature 36.8 ??C (98.2 ??F) 12/24/2021 1:52 PM PUBLIC HEALTH INFORMATICIAN Respiratory Rate 16 12/24/2021 1:52 PM PUBLIC HEALTH INFORMATICIAN Oxygen Saturation 97% 12/24/2021 1:52 PM PUBLIC HEALTH INFORMATICIAN Inhaled Oxygen Concentration - - Weight 92.5 kg (204 lb) 12/24/2021 1:52 PM PUBLIC HEALTH INFORMATICIAN Height 170.2 cm (5' 7) 12/24/2021 1:52 PM PUBLIC HEALTH INFORMATICIAN Body Mass Index 31.95 12/24/2021 1:52 PM PUBLIC HEALTH INFORMATICIAN documented in this encounter Patient Instructions Patient InstructionsNasim Milton MD - 12/24/2021 2:00 PM CST Images from the original note were not included. Okay for tylenol for discomfort Use cortisporin otic drops for right otitis externa Patient Education External Ear Infection (Adult) External otitis (also called ???swimmer???s ear?? ) is an infection in the ear canal. It's often caused by bacteria or fungus. It can occur a few days after water gets trapped in the ear canal (from swimming or bathing). It can also occur after cleaning too deeply in the ear canal with a cotton swab or other object. Sometimes, hair care products get into the ear canal and cause this problem. Symptoms can include pain, fever, itching, redness, drainage, or swelling of the ear canal. Temporary hearing loss may also occur. Home care ?? Don't try to clean the ear canal. This can push pus and bacteria deeper into the canal. ?? Use prescribed ear drops as directed. These help reduce swelling and fight the infection. If an ear wick was placed in the ear canal, apply drops right onto the end of the wick. The wick will draw the medicine into the ear canal even if it's swollen closed. ?? A cotton ball may be loosely placed in the outer ear to absorb any drainage. ?? You may use ggee-hsi-funzhnh medicines to control pain as directed by the healthcare provider, unless another medicine??was prescribed. Talk with your provider before using these medicines if you have chronic liver or kidney disease or ever had a stomach ulcer or digestive tract bleeding. ?? Don't allow water to get into your ear when bathing. Also don't swim until the infection has cleared. Prevention ?? Keep your ears dry. This helps lower the risk of infection. Dry your ears with a towel or chair caner after getting wet. Also, use ear plugs when swimming. ?? Don't stick any objects in the ear to remove wax. ?? Talk with your provider about using ear drops to prevent swimmer's ear in case you feel water trapped in your ear canal. You can get these drops over the counter at most drugstores. They work by removing water from the ear canal. Follow-up care Follow up with your healthcare provider in 1 week, or as advised. When to seek medical advice Call your healthcare provider right away if any of these occur: ?? Ear pain becomes worse or doesn???t improve after 3 days of treatment ?? Redness or swelling of the outer ear occurs or gets worse ?? Headache ?? Fever of 100.4??F (38??C) or higher, or as directed by your healthcare provider Call 911 Call 911 or get immediate medical care if any of the following occur: ?? Seizure ?? Unusual drowsiness or confusion ?? Unusual painful or stiff neck [employer] last reviewed this educational content on 06/13/2020 ?? [id number] The [employer]. All rights reserved. This information is not intended as a substitute for professional medical care. Always follow your healthcare professional's instructions. IC HEALTH INFORMATICIAN documented in this encounter Progress Notes Nasim Milton MD - 12/24/2021 2:00 PM CST SUBJECTIVE: Marta Hill is a 41 year old female presenting [...] otitis externa, right (primary encounter diagnosis) Plan: axtinapq-ycxhdwayy-lawxjjxxexrspa (CORTISPORIN) 3.5-63168-2 otic solution Refrain from using Q-tips in ear canal. Okay for tylenol for discomfort. RX cortisporin otic drops for right otitis externa. Reassurance given that otitis externa infection should not delay upcoming surgery. Follow up with primary provider if no improvement of symptoms in 1 week Nasim Milton MD December 24, 2021 2:28 PM IC HEALTH INFORMATICIAN documented in this encounter Plan of Treatment Upcoming Encounters Date Type Specialty Care Team Description 09/26/2022 Appointment Speech Therapy Obdulio Barrera MD [address] [facility] 276 [place], [place] [phone] Anabel Chew, CRITICAL CARE UNIT MANAGER [address] [place], [place] [address] 09/27/2022 Therapy Visit Physical Therapy Luisana Watkins, PT [address] [place] [address] 09/29/2022 Virtual Visit Pain & Palliative Marilia Deluna, [facility] PhD [address] [place], [place] [address] 09/30/2022 Office Visit Family Practice Aydee Burton, CREDIT CONSULTANT CREDIT CHECKER [address] [place], [place] [phone] 10/03/2022 Therapy Visit Physical Therapy Una Reardon, PT [address] [place] [phone] 10/10/2022 Hospital Encounter Surgery Lesly Celaya MD [address] [place], [place] [address] 10/10/2022 Office Visit Surgery Lesly Celaya MD [address] [place], [place] [address] Ninoska Flowers, PA-C [address] [place], [place] [address] 10/10/2022 Surgery Surgery Lesly Celaya, EXCISION, MASSES - MD back, abdomen, [address] extremity [place], [place] [phone] 10/11/2022 Virtual Visit Pharm Bryce Ruiz, Clari Banks, [address] [address] 10/14/2022 Appointment Speech Therapy Anabel Chew, CRITICAL CARE UNIT MANAGER [address] [address] 10/21/2022 Office Visit Pulmonology Obdulio Barrera MD [address] [place] [phone] 10/25/2022 PRE VISIT ENT Charo Burton MD Previsit [address] [place] [address] [phone] 10/25/2022 Office Visit Charo Carter MD [address] [place] [address] 10/25/2022 Office Visit ENT Provider, Ent Dysphonia [employer] Law Clerk 10/28/2022 Appointment Speech Therapy Anabel Chew, CRITICAL CARE UNIT MANAGER [address] [address] 11/17/2022 Appointment Speech Therapy Anabel Chew, CRITICAL CARE UNIT MANAGER [address] [place] [address] 12/23/2022 Office Visit Neurology Colby Yeung MD [address] [place] [phone] Scheduled Procedures Name Priority Associated Diagnoses Date/Time EXCISION, MASS, TORSO Lipoma of skin and subcuta neous 10/10/2022 7:30 AM PUBLIC HEALTH INFORMATICIAN tissue documented as of this encounter Visit Diagnoses Diagnosis Infective otitis externa, right - Primar y Lipoma of skin and subcutaneous tissue Lipoma of other skin and subcutaneous ti ssue documented in this encounter Additional Health Concerns Assessment Noted Time PHQ-9 Depression Total Score: 22 06/28/2021 7:03 AM CD T documented as of this encounter Care Teams Commercial Fisher Relationship Specialty Start Date End Date Aydee Burton, PCP - General Nurse Practitioner - 05/17/21 CREDIT CONSULTANT CREDIT CHECKER Family [address] [place] [address] [phone] Aydee Burton, Assigned PCP 04/28/21 CREDIT CONSULTANT CREDIT CHECKER [address] [place] [address] [phone] Louisa Hood, Assigned Neuroscience 07/11/21 CREDIT CONSULTANT CREDIT CHECKER Provider [address] [place] [address] [phone] Se Levy, Lead Junior Graphic Designer 08/05/21 05/12/22 Clari Francois Pharmacist Pharmacist 08/06/21 06/07/22 Jocelyn [facility] [address] [place], [place] [phone] [place], Assigned Sleep 08/01/21 Angel Turcios, Provider [address] [place], [place] [address] Lesly Celaya MD Assigned Surgical 09/05/21 [address] [place] [place] [address] Tawana Patel MA [facility] 09/30/21 Worker Ramses Mcpherson Assigned OBGYN 11/07/21 MD Onesimo Provider [address] [place] [address] Mago Swift, [facility] Lead Junior Graphic Designer Contact Acid Plant Operator Helper - 08/05/21 Clinical documented as of this encounter
--- OUTSIDE RECORDS SUMMARY | 2022-09-21 04:13 | XMS_ITS | Encounter Summary ---
:1980 Author Organization [facility] Address [address] [place] [address] Care Team Providers Name Role Phone Aydee Burton TRIMMER AND BORER MACHINE OPERATOR INSTRUMENT PERSON Primary Care Provider [phone] Aydee Burton TRIMMER AND BORER MACHINE OPERATOR INSTRUMENT PERSON Unavailable [phone] Louisa Hood TRIMMER AND BORER MACHINE OPERATOR INSTRUMENT PERSON Unavailable [phone] Se Levy HEAD OF INTEGRATED MEDIA Unavailable Unavailable Clari Ruiz [facility] Unavailable [phone] Angel Hannah MD Unavailable Lesly Celaya MD Unavailable Tawana Patel MA Unavailable Unavailable Ramses Mcpherson MD Unavailable [phone] Mago Swift STUDENT DRIVING INSTRUCTOR Unavailable Reason for Visit Reason Comments Pain Encounter Details Date Type Department Care Team Description 12/14/[address] [facility] Lucas Anaya yannick myofascial pain (Primary Dx); Pain Management MD Romel Trigger point of shoulder region, unspec ified laterality [place] [address] [address] [address] [place] [address] [address] [place] [address] [phone] Social History Tobacco Use Types Packs/Day Years [...] How often do you attend pentecostalism or jewish services? Never 08/05/2021 Do you [...] at Date Recorded Female 11/09/2021 7:53 PM BRIDGE MANAGER COVID-19 Exposure Response Date Recorded In the last month, have you been in contact with No / Unsure 12/14/2021 2:40 PM BRIDGE MANAGER someone who was confirmed or suspected to have Coronavirus / COVID-19? documented as of this encounter Last Filed Vital Signs Vital Sign Reading Time Taken Comments Blood Pressure 124/72 12/14/2021 2:45 PM BRIDGE MANAGER Pulse 97 12/14/2021 2:45 PM BRIDGE MANAGER Temperature - - Respiratory Rate - - Oxygen Saturation 99% 12/14/2021 2:45 PM BRIDGE MANAGER Inhaled Oxygen Concentration - - Weight - - Height - - Body Mass Index - - documented in this encounter Patient Instructions Patient InstructionsPacharo, Tatiana Caro, SHERIFFS DETECTIVE - 12/14/2021 2:30 PM CST 1. Reduce gabapentin 400mg four times daily. 2. Start methocarbamol 500mg once daily as needed. If no side effects you can increase to 750mg at take this 2-3 times daily as needed. If the 500mg dose makes you drowsy, try taking 250mg and see if this helps. 3. Good luck with your surgeries. Once this is completed we can place a referral to [facility] for word hardening physical therapy. Take care, Lucas Anaya [facility] Clinic Number: [phone] ??? Call with any questions about your care and for scheduling assistance. ??? Calls are returned Monday through Monday between 8 AM and 4:30 PM. We usually get back to you within 2 business days depending on the issue/request. If we are prescribing your medications: ?? For opioid medication refills, call the clinic or send a [employer] message 7 days in advance. Please include: ?? Name of requested medication ?? Name of the pharmacy. ?? For non-opioid medications, call your pharmacy directly to request a refill. Please allow 3-4 days to be processed. ?? Per [place] State Law: ?? All controlled substance prescriptions must be filled within 30 days of being written. ?? For those controlled substances allowing refills, pickup must occur within 30 days of last fill. We believe regular attendance is miranda to your success in our program! ??? Any time you are unable to keep your appointment we ask that you call us at least 24 hours in advance to cancel.This will allow us to offer the appointment time to another patient. ??? Multiple missed appointments may lead to dismissal from the clinic. GE MANAGER documented in this encounter Progress Notes Lucas Anaya MD - 12/14/2021 2:30 PM CST [facility] Date of visit: 12/14/2021 Assessment: Marta Hill is a 41 year old with past medical history including: PTSD, Anxiety, Depression, who presents for evaluation and treatment of the following chronic pain conditions: ?? 1. Chronic headaches: Marta has had a long standing history of chronic neck pain and headaches and has been diagnosed with occipital neuralgia at [facility] years ago. Currently they are experiencing daily holocephalic headaches with mixed features of occipital neuralgia and tension type headaches that flare-up with activity, specifically at work. They are neurologically intact on exam with exception of mildly reduced sensation in the left hand compared to the right. TPI/ONB completed with mildimprovement to date. ?? 2. Chronic bilateral upper back and neck pain: These symptoms have also been present for years and exacerbate her headaches. On exam their cervical ROM is mildly reduced in side bending and rotation tothe right. They have trigger points in the periscapular muscles which are worse on the right side aswell. TPI completed with mild improvement to date. ?? 3. Left arm pain: They sustained [...] Clinical Health Pain Psychologist: Pain phd referral placed, scheduled for . Therapy can help reduce physical and psychosocial [...] MRI if neck pain is persistent. 5. Medication Management: 1. Reduce Gabapentin to 400mg QID 2. Continue duloxetine 120mg hs 3. Methocarbamol 500-750mg TID prn. 6. Further procedures recommended: TPI and bilateral ONB can be repeated every 3+ months. 7. Release of information: [facility] 8. Follow up: 2 months. Lucas Anaya [facility] Chief complaint: Chief Complaint Patient presents with ??? Pain Interval history: Marta Hill is a 41 year old female last seen by me on 12/01/21. Since her last visit, Marta Hill reports: -They continue to have daily headaches that occur with activity. They usually work 7 days/week and have headaches once they're at work for a couple hours. -They are having a hysterctomy surgery and surgery to remove screws from their arm, they would like to wait until this is completed before doing surgery. -They had mild improvement with trigger point injections. This is helping about 30% at this time. -They increased gabapentin to 800mg TID but started having muscle twitching. They notice that there is a repetitive uncontrolled movement after movements they meant to initiate. -They're also having intermittent twitching when they're trying to relax or mellow. Pain scores: Pain intensity on average is 7 on a scale of 0-10. Pain Treatments: [...] Surgery: -radial head fixation 2020 5. Injections: -They had occipital nerve blocks years ago - helped for a few weeks -Botox injections years ago - made headaches worse - [facility] 6. Alternative Therapies: Chiropractic: hasn't tried Acupuncture: [...] MG tablet Take by mouth daily ??? methocarbamol (ROBAXIN) 500 MG tablet Take 1-1.5 tablets (500-750 mg) by mouth 3 times daily as needed for muscle spasms 90 tablet 0 ??? QUEtiapine (SEROQUEL) 100 MG tablet Take 1 tablet (100 mg) by mouth At Bedtime 30 tablet 2 ??? vitamin D3 (CHOLECALCIFEROL) 50 mcg (2000 units) tablet Take 1 tablet by mouth daily Medical History: any changes in medical history since they were last seen? No Review of Systems: The 14 system ROS was reviewed from the intake questionnaire, and is positive for: neck pain, headaches, paresthesias Physical Exam: Blood pressure 124/72, pulse 97, last menstrual period 11/15/2021, SpO2 99 %, not currently . General: NAD, pleasant Gait: Normal MSK exam: Cervical ROM is mildly reduced in ext/rot bilaterally. Pain with ext/rot bilaterally. Painwith paraspinal, trapezius, levator and rhomboid palpation bilaterally. Strength is 5/5 and symmetric in the upper and lower extremities. BILLING TIME DOCUMENTATION: The total TIME spent [...] professionals Time spent documenting clinical information in [facility] Lucas Anaya DO [facility] 12/14/2021 GE MANAGER documented in this encounter Plan of Treatment Upcoming Encounters Date Type Specialty Care Team Description 09/26/2022 Appointment Speech Therapy Obdulio Barrera MD [address] [facility] [address] [place], [place] [address] Anabel Chew, JOB DEVELOPMENT SPECIALIST [facility] [address] [facility] [address] [place], [place] [address] 09/27/2022 Therapy Visit Physical Therapy Luisana Watkins, PT [address] [place] [address] 09/29/2022 Virtual Visit Pain & Palliative Marilia Deluna, [facility] PhD [address] [place] [address] 09/30/2022 Office Visit Family Practice Aydee Burton, TRIMMER AND BORER MACHINE OPERATOR INSTRUMENT PERSON [address] [place] [address] 10/03/2022 Therapy Visit Physical Therapy Una Reardon, PT [address] [place] [phone] 10/10/2022 Hospital Encounter Surgery Lesly Celaya MD [address] [place], [place] [address] 10/10/2022 Office Visit Surgery Lesly Celaya MD [address] [place], [place] [address] Ninoska Flowers PA-C [address] [place], [place] [address] 10/10/2022 Surgery Surgery Lesly Celaya, EXCISION, MASSES - MD back, abdomen, [address] extremity [place], [place] [phone] 10/11/2022 Virtual Visit Pharm Clari Stoll, [place] [id number] [address] [address] 10/14/2022 Appointment Speech Therapy Anabel Chew, JOB DEVELOPMENT SPECIALIST [address] [address] 10/21/2022 Office Visit Pulmonology Obdulio Barrera MD [address] [place] [address] [address] [place], [place] [address] 10/25/2022 PRE VISIT ENT Charo Burton MD Previsit [address] [place] [id number] 10/25/2022 Office Visit Charo Carter MD [address] [place] [address] 10/25/2022 Office Visit ENT Provider, Jeannette Ent Dysphonia Roll Repairer 10/28/2022 Appointment Speech Therapy Anabel Chew, JOB DEVELOPMENT SPECIALIST [address] [address] 11/17/2022 Appointment Speech Therapy Anabel Chew, JOB DEVELOPMENT SPECIALIST [facility] [address] [facility] [address] [place], [place] [address] 12/23/2022 Office Visit Neurology Colby Yeung MD [address] [id number] Scheduled Procedures Name Priority Associated Diagnoses Date/Time EXCISION, MASS, TORSO Lipoma of skin and subcuta neous 10/10/2022 7:30 AM BRIDGE MANAGER tissue documented as of this encounter Visit Diagnoses Diagnosis Chronic myofascial pain - Primary Mylagia and myositis, unspecified Trigger point of shoulder region, unspec ified laterality Lipoma of skin and subcutaneous tissue Lipoma of other skin and subcutaneous ti ssue documented in this encounter Additional Health Concerns Assessment Noted Time PHQ-9 Depression Total Score: 22 06/28/2021 7:03 AM CD T documented as of this encounter Care Teams Cognos Report Developer Relationship Specialty Start Date End Date Aydee Burton, PCP - General Nurse Practitioner - 05/17/21 TRIMMER AND BORER MACHINE OPERATOR INSTRUMENT PERSON Family [address] [place], [place] [phone] Aydee Burton, Assigned PCP 04/28/21 TRIMMER AND BORER MACHINE OPERATOR INSTRUMENT PERSON [address] [place], [place] [address] Louisa Hood, Assigned Neuroscience 07/11/21 TRIMMER AND BORER MACHINE OPERATOR INSTRUMENT PERSON Provider 500 [place], [place] [address] Se Levy, Lead Manager Drive 08/05/21 05/12/22 Clari Francois Pharmacist Pharmacist 08/06/21 06/07/22 Jocelyn [facility] [address] [facility] [address] [place], [place] [address] [place], Assigned Sleep 08/01/21 Angel Turcios, Provider [address] [place] [address] Lesly Celaya MD Assigned Surgical 09/05/21 [address] [place] [address] Tawana Patel MA [facility] 09/30/21 Worker Ramses Mcpherson Assigned OBGYN 11/07/21 MD Onesimo Provider [address] [place], [place] [address] Mago Swift [facility] Lead Manager Drive Radial Drill Operator - 08/05/21 Clinical documented as of this encounter
--- OUTSIDE RECORDS SUMMARY | 2022-09-21 04:13 | XMS_ITS | Encounter Summary ---
:1980 Author Organization [facility] Address [address] [place] [address] Care Team Providers Name Role Phone Aydee Burton CMV DRIVER TANK STORAGE SUPERVISOR Primary Care Provider [phone] Aydee Burton CMV DRIVER TANK STORAGE SUPERVISOR Unavailable [phone] Louisa Hood CMV DRIVER TANK STORAGE SUPERVISOR Unavailable [phone] Se Levy REINFORCING IRON AND REBAR WORKERS Unavailable Unavailable Clari Ruiz [facility] Unavailable Angel Hannah MD Unavailable Lesly Celaya MD Unavailable Tawana Patel MA Unavailable Unavailable Ramses Mcpherson MD Unavailable [phone] Mago Swift CANE LOADER Unavailable Encounter Details Date Type Department Care Team Description 12/15/2021 Orders Only [facility] Ramses Mcpherson Enco unter for [facility] OR MD Onesimo screening for other [address] viral diseases [place], [place] [address] (Primary Dx) [address] [phone] Social History Tobacco Use Types Packs/Day Years [...] er 08/05/2021 How often do you attend scientology or judaism services? Never 08/05/2021 Do you belong to any clubs or organizations such as scientology N o 08/05/2021 groups, unions, fraternal or [...] at Date Recorded Female 11/09/2021 7:53 PM C DEVELOPER COVID-19 Exposure Response Date Recorded In the last month, have you been in contact with No / Unsure 12/14/2021 2:40 PM C DEVELOPER someone who was confirmed or suspected to have Coronavirus / COVID-19? documented as of this encounter Plan of Treatment Upcoming Encounters Date Type Specialty Care Team Description 09/26/2022 Appointment Speech Therapy Obdulio Barrera MD [address] [place] [address] Anabel Chew, IN HOME AIDE [address] [facility] [address] [place] [address] 09/27/2022 Therapy Visit Physical Therapy Luisana Watkins, PT [address] [place] [address] 09/29/2022 Virtual Visit Pain & Palliative Marilia Deluna, [facility] PhD [address] [place], [place] [address] 09/30/2022 Office Visit Family Practice Aydee Burton, CMV DRIVER TANK STORAGE SUPERVISOR [address] [place], [place] [phone] 10/03/2022 Therapy Visit Physical Therapy Una Reardon, PT [address] [place] [phone] 10/10/2022 Hospital Encounter Surgery Lesly Celaya MD [address] [place], [place] [phone] 10/10/2022 Office Visit Surgery Lesly Celaya MD [address] [place] [address] Ninoska Flowers, PA-C [address] [facility] [address] [place] [address] 10/10/2022 Surgery Surgery Lesly Celaya, EXCISION, MASSES - MD back, abdomen, [address] right lower [facility] [place] [address] 10/11/2022 Virtual Visit Clari Su, [facility] [address] [place] [phone] [place], [place] [address] 10/14/2022 Appointment Speech Therapy Anabel Chew, IN HOME AIDE [address] [address] 10/21/2022 Office Visit Pulmonology Obdulio Barrera MD [address] [address] 10/25/2022 PRE VISIT ENT Charo Burton MD Previsit [address] [place] [address] 10/25/2022 Office Visit ENT Charo Burton MD [address] [place] [address] 10/25/2022 Office Visit ENT Provider, Ent Dysphonia Industrial Cleaner 10/28/2022 Appointment Speech Therapy Anabel Chew SLP [address] [address] 11/17/2022 Appointment Speech Therapy Anabel Chew SLP [address] [address] 12/23/2022 Office Visit Neurology Colby Yeung MD [address] [place] [phone] Scheduled Procedures Name Priority Associated Diagnoses Date/Time EXCISION, MASS, TORSO Lipoma of skin and subcuta neous 10/10/2022 7:30 AM C DEVELOPER tissue documented as of this encounter Results Asymptomatic COVID-19 Virus (Coronavirus) by PCR Nose (12/24/2021 1:45 PM C DEVELOPER) [facility] Method Time Signature SARS CoV2 PCR Negative Negative, 12/25/2021 [facility] Testing sent to 11:04 AM LABORATORY reference lab. C DEVELOPER Results will be returned via unsolicited result Comment: NEGATIVE: SARS-CoV-2 (COVID-19) RNA not detected, presumed negative. Specimen Anatomical Collection Method Collection Time Receive d Time (Source) Location / / Volume Laterality Swab NASAL STRUCTURE / Non-blood 12/24/2021 1:45 PM 12/14 1:45 Unknown Collection / C DEVELOPER PM C DEVELOPER Unknown Narrative [facility] - 12/25/2021 11:04 AM C DEVELOPER Testing was performed using the amara SARS-CoV-2 assay on the amara MobiMagic0 System. This test should be ordered for [...] This urbano t was validated by the [facility] Infectious Diseases Diag nostic Laboratory. This laboratory is certified under the Clinic al Laboratory Improvement Amendments of 1988 (CLIA-88) as qualifie d to perform high and/or moderate complexity laboratory testing. Ramses Mcpherson MD LAB - MICRO GENERAL ORDERABL ES Performing Organization Address City/State/ZIP Code Phon e Number [facility] [place] [place] [address] Diag. Lab [address] [facility], Room D297 [facility] Infectious [place], [place] [phone] Diseases Diagnostic [phone], [facility] Lab (IDDL) [address] [facility], Room D297 documented in this encounter Visit Diagnoses Diagnosis Encounter for screening for other viral diseases - Primary Lipoma of skin and subcutaneous tissue Lipoma of other skin and subcutaneous ti ssue documented in this encounter Additional Health Concerns Assessment Noted Time PHQ-9 Depression Total Score: 22 06/28/2021 7:03 AM CD T documented as of this encounter Care Teams Switch Crew Supervisor Relationship Specialty Start Date End Date Aydee Burton, PCP - General Nurse Practitioner - 05/17/21 CMV DRIVER TANK STORAGE SUPERVISOR Family [address] [place], [place] [address] Aydee Burton, Assigned PCP 04/28/21 CMV DRIVER TANK STORAGE SUPERVISOR [address] [place], [place] [phone] Louisa Hood, Assigned Neuroscience 07/11/21 CMV DRIVER TANK STORAGE SUPERVISOR Provider [address] [place], [place] [phone] Se Levy, Lead Ostomy Care Nurse 08/05/21 05/12/22 REINFORCING IRON AND REBAR WORKERSClari Ordonez Pharmacist Pharmacist 08/06/21 06/07/22 [facility] [address] [place], [place] [phone] [place], Assigned Sleep 08/01/21 Angel Turcios, Provider [address] [place] [address] Lesly Celaya MD Assigned Surgical 09/05/21 [address] Provider [place], [place] [phone] Tawana Patel MA [facility] 09/30/21 Worker Ramses Mcpherson Assigned OBGYN 11/07/21 MD Onesimo Provider [address] [place] [address] Mago Swift [facility] Lead Ostomy Care Nurse Tattoo And Body Artist - 08/05/21 Clinical documented as of this encounter
--- OUTSIDE RECORDS SUMMARY | 2022-09-21 04:13 | XMS_ITS | Encounter Summary ---
:1980 Author Organization [facility] Address [address] [place] [address] Care Team Providers Name Role Phone Aydee Burton INFRASTRUCTURE TECHNICIAN LOAN BROKER Primary Care Provider Aydee Burton INFRASTRUCTURE TECHNICIAN LOAN BROKER Unavailable [phone] Louisa Hood INFRASTRUCTURE TECHNICIAN LOAN BROKER Unavailable [phone] Se Levy INTERNATIONAL ACCOUNT REPRESENTATIVE Unavailable Unavailable Clari Ruiz [facility] Unavailable [phone] Angel Hannah MD Unavailable Lesly Celaya MD Unavailable Tawana Patel MA Unavailable Unavailable Ramses Mcpherson MD Unavailable [phone] Mago Swift GAS MAKER HELPER Unavailable Encounter Details Date Type Department Care Team Description 12/01/2021 Travel Social History Tobacco Use Types Packs/Day [...] How often do you attend sabianism or confucianism services? Never 08/05/2021 Do you [...] at Date Recorded Female 11/09/2021 7:53 PM CHANGE MANAGEMENT MANAGER COVID-19 Exposure Response Date Recorded In the last month, have you been in contact with No / Unsure 12/01/2021 8:05 AM CHANGE MANAGEMENT MANAGER someone who was confirmed or suspected to have Coronavirus / COVID-19? documented as of this encounter Plan of Treatment Upcoming Encounters Date Type Specialty Care Team Description 09/26/2022 Appointment Speech Therapy Obdulio Barrera MD [address] [facility] 276 [place], [place] [address] Anabel Chew, TOOL ROOM ATTENDANT [place] [address] [facility] 396 [place], [place] [address] 09/27/2022 Therapy Visit Physical Therapy Luisana Watkins, PT [address] [place] [address] 09/29/2022 Virtual Visit Pain & Palliative Marilia Deluna Care PhD [address] [facility] [place] [address] 09/30/2022 Office Visit Family Practice Aydee Burton, INFRASTRUCTURE TECHNICIAN LOAN BROKER [address] [place], [place] [phone] 10/03/2022 Therapy Visit Physical Therapy David-Una Tang, PT [address] [place] [address] 10/10/2022 Hospital Encounter Surgery Lesly Celaya MD [address] [place] [address] 10/10/2022 Office Visit Surgery Lesly Celaya MD [address] [place] [address] Ninoska Flowers PA-Ynes [address] [place] [address] 10/10/2022 Surgery Surgery Lesly Celaya, EXCISION, MASSES - MD back, abdomen, [address] [place] [address] 10/11/2022 Virtual Visit Clari Su, [facility] [address] [address] 10/14/2022 Appointment Speech Therapy Anabel Chew, TOOL ROOM ATTENDANT [facility] [address] [facility] 396 [place], [place] [address] 10/21/2022 Office Visit Pulmonology Obdulio Barrera MD 420 [facility] 276 [place] [address] 10/25/2022 PRE VISIT ENT Charo Burton MD Previsit 9[address] [place] [address] 10/25/2022 Office Visit ENT Charo Burton MD [address] [place] [address] 10/25/2022 Office Visit ENT Provider, Ent Dysphonia Transportation Technician 10/28/2022 Appointment Speech Therapy Anabel Chew, TOOL ROOM ATTENDANT [address] [address] 11/17/2022 Appointment Speech Therapy Anabel Chew, TOOL ROOM ATTENDANT [address] [address] 12/23/2022 Office Visit Neurology Colby Yeung MD [address] [address] Scheduled Procedures Name Priority Associated Diagnoses Date/Time EXCISION, MASS, TORSO Lipoma of skin and subcuta neous 10/10/2022 7:30 AM CHANGE MANAGEMENT MANAGER tissue documented as of this encounter Visit Diagnoses Not on filedocumented in this encounter Additional Health Concerns Assessment Noted Time PHQ-9 Depression Total Score: 22 06/28/2021 7:03 AM CD T documented as of this encounter Care Teams Paleologist Relationship Specialty Start Date End Date Aydee Burton, PCP - General Nurse Practitioner - 05/17/21 INFRASTRUCTURE TECHNICIAN LOAN BROKER Family [address] [place] [phone] Aydee Burton, Assigned PCP 04/28/21 INFRASTRUCTURE TECHNICIAN [facility] [address] [place], [place] [phone] Louisa Hood, Assigned Neuroscience 07/11/21 INFRASTRUCTURE TECHNICIAN LOAN BROKER Provider [address] [address] Se Levy, Lead Fire Equipment Inspector 08/05/21 05/12/22 [facility] Clari Ruiz Pharmacist Pharmacist 08/06/21 06/07/22 [facility] [address] [place] [address] [place], Assigned Sleep 08/01/21 Angel Turcios, Provider [address] [place] [address] Lesly Celaya MD Assigned Surgical 09/05/21 [address] [place] [address] Tawana Patel MA [facility] 09/30/21 Worker Ramses Mcpherson Assigned OBGYN 11/07/21 MD Onesimo Provider [address] [place] [address] Mago Swift, [facility] Lead Fire Equipment Inspector Technical Assistant - 08/05/21 Clinical documented as of this encounter
--- OUTSIDE RECORDS SUMMARY | 2022-09-21 04:13 | XMS_ITS | Encounter Summary ---
:1980 Author Organization [place] Address [address] [place] [address] Care Team Providers Name Role Phone Aydee Burton COMMUNICATION COORDINATOR GUN WELDER Primary Care Provider [phone] Aydee Burton COMMUNICATION COORDINATOR GUN WELDER Unavailable [phone] Louisa Hood COMMUNICATION COORDINATOR GUN WELDER Unavailable [phone] Se Levy PHILANTHROPY OFFICER Unavailable Unavailable Clari Ruiz [facility] Unavailable [phone] Angel Hannah MD Unavailable Lesly Celaya MD Unavailable Tawana Patel MA Unavailable Unavailable Ramses Mcpherson MD Unavailable [phone] Mago Swift ASSISTANT PROFESSOR OF RADIOLOGY Unavailable Encounter Details Date Type Department Care Team Description 12/22/2021 Travel Social History Tobacco Use Types Packs/Day [...] How often do you attend hindu or temple services? Never 08/05/2021 Do you [...] at Date Recorded Female 11/09/2021 7:53 PM PULMONARY DISEASE SPECIALIST COVID-19 Exposure Response Date Recorded In the last month, have you been in contact with No / Unsure 12/22/2021 11:32 AM PULMONARY DISEASE SPECIALIST someone who was confirmed or suspected to have Coronavirus / COVID-19? documented as of this encounter Plan of Treatment Upcoming Encounters Date Type Specialty Care Team Description 09/26/2022 Appointment Speech Therapy Obdulio Barrera MD 420 [facility] 276 [place], [place] [address] Anabel Chew, PHYSICIAN RELATIONS MANAGER [place] 410276 [facility] [address] [place], [place] [address] 09/27/2022 Therapy Visit Physical Therapy Luisana Watkins, PT [address] [place] [address] 09/29/2022 Virtual Visit Pain & Palliative Marilia Deluna Care PhD [address] [facility] [place] [address] 09/30/2022 Office Visit Family Practice Aydee Burton, COMMUNICATION COORDINATOR GUN WELDER [address] [place], [place] [phone] 10/03/2022 Therapy Visit Physical Therapy David-Una Tang, PT [address] [place] [address] 10/10/2022 Hospital Encounter Surgery Lesly Celaya MD [address] [place] [address] 10/10/2022 Office Visit Surgery Lesly Celaya MD [address] [place] [address] Ninoska Flowers PA-Ynes [address] [place] [address] 10/10/2022 Surgery Surgery Lesly Celaya, EXCISION, MASSES - MD back, abdomen, [address] [place] [address] 10/11/2022 Virtual Visit Clari Su, [facility] [address] 8[address] 10/14/2022 Appointment Speech Therapy Anabel Chew, PHYSICIAN RELATIONS MANAGER [facility] 516 [facility] 396 [place], [place] [address] 10/21/2022 Office Visit Pulmonology Obdulio Barrera MD 420 [facility] 276 [place] [address] 10/25/2022 PRE VISIT ENT Charo Burton MD Previsit 909 [place] [address] 10/25/2022 Office Visit ENT Charo Burton MD 909 [place] [address] 10/25/2022 Office Visit ENT Provider, Ent Dysphonia Anthropology Lecturer 10/28/2022 Appointment Speech Therapy Anabel Chew, PHYSICIAN RELATIONS MANAGER [address] [address] 11/17/2022 Appointment Speech Therapy Anabel Chew, PHYSICIAN RELATIONS MANAGER [address] [address] 12/23/2022 Office Visit Neurology Colby Yeung MD [address] [id number] Scheduled Procedures Name Priority Associated Diagnoses Date/Time EXCISION, MASS, TORSO Lipoma of skin and subcuta neous 10/10/2022 7:30 AM PULMONARY DISEASE SPECIALIST tissue documented as of this encounter Visit Diagnoses Not on filedocumented in this encounter Additional Health Concerns Assessment Noted Time PHQ-9 Depression Total Score: 22 06/28/2021 7:03 AM CD T documented as of this encounter Care Teams Shop And Alteration Tailor Relationship Specialty Start Date End Date Aydee Burton, PCP - General Nurse Practitioner - 05/17/21 COMMUNICATION COORDINATOR GUN WELDER Family [address] [place] [address] [phone] Aydee Burton, Assigned PCP 04/28/21 COMMUNICATION COORDINATOR [facility] [address] [place], [place] [phone] Louisa Hood, Assigned Neuroscience 07/11/21 COMMUNICATION COORDINATOR GUN WELDER Provider [address] [place] [address] Se Levy, Lead Spinner Box 08/05/21 05/12/22 [facility] Clari Ruiz Pharmacist Pharmacist 08/06/21 06/07/22 [facility] [address] [place] [address] [place], Assigned Sleep 08/01/21 Angel Turcios, Provider [address] [place] [address] Lesly Celaya MD Assigned Surgical 09/05/21 [address] [place] [address] Tawana Patel MA [facility] 09/30/21 Worker Ramses Mcpherson Assigned OBGYN 11/07/21 MD Onesimo Provider [address] [place] [address] Mago Swift, [facility] Lead Spinner Box Station Operator - 08/05/21 Clinical documented as of this encounter
--- OUTSIDE RECORDS SUMMARY | 2022-09-21 04:13 | XMS_ITS | Encounter Summary ---
:1980 Author Organization [place] Address [address] [place] [address] Care Team Providers Name Role Phone Aydee Burton REBRANDER DENTAL EQUIPMENT MECHANIC Primary Care Provider [phone] Aydee Burton REBRANDER DENTAL EQUIPMENT MECHANIC Unavailable [phone] Louisa Hood REBRANDER DENTAL EQUIPMENT MECHANIC Unavailable [phone] Se Levy SOLID WASTE MANAGER Unavailable Unavailable Clari Ruiz [facility] Unavailable [phone] Angel Hannah MD Unavailable Lesly Celaya MD Unavailable Tawana Patel MA Unavailable Unavailable Ramses Mcpherson MD Unavailable [phone] Mago Swift BORDER PATROL AGENT Unavailable Encounter Details Date Type Department Care Team Description 12/10/2021 Travel Social History Tobacco Use Types Packs/Day [...] How often do you attend protestant or alevism services? Never 08/05/2021 Do you [...] at Date Recorded Female 11/09/2021 7:53 PM SUPERINTENDENT LAUNDRY COVID-19 Exposure Response Date Recorded In the last month, have you been in contact with No / Unsure 12/10/2021 8:26 AM SUPERINTENDENT LAUNDRY someone who was confirmed or suspected to have Coronavirus / COVID-19? documented as of this encounter Plan of Treatment Upcoming Encounters Date Type Specialty Care Team Description 09/26/2022 Appointment Speech Therapy Obdulio Barrera MD 420 [facility] 276 [place], [place] [address] Anabel Chew, SMALL KICK PRESS OPERATOR [place] 823976 [facility] 396 [place], [place] [address] 09/27/2022 Therapy Visit Physical Therapy Luisana Watkins, PT [address] [place] [address] 09/29/2022 Virtual Visit Pain & Palliative Marilia [place]una Care PhD [address] [facility] [place] [address] 09/30/2022 Office Visit Family Practice Aydee Burton, REBRANDER DENTAL EQUIPMENT MECHANIC [address] [place], [place] [phone] 10/03/2022 Therapy Visit Physical Therapy David-Una Tang, PT [address] [place] [address] 10/10/2022 Hospital Encounter Surgery Lesly Celaya MD [address] [place] [address] 10/10/2022 Office Visit Surgery Lesly Celaya MD [address] [place] [address] Ninoska Flowers PA-Ynes [address] [place] [address] 10/10/2022 Surgery Surgery Lesly Celaya, EXCISION, MASSES - MD back, abdomen, [address] [place] [address] 10/11/2022 Virtual Visit Clari Su, [facility] [address] [address] 10/14/2022 Appointment Speech Therapy Anabel Chew, SMALL KICK PRESS OPERATOR [facility] 516 [facility] 396 [place], [place] [address] 10/21/2022 Office Visit Pulmonology Obdulio Barrera MD 420 [facility] 276 [place] [address] 10/25/2022 PRE VISIT ENT Charo Burton MD Previsit 909 [place] [address] 10/25/2022 Office Visit ENT Charo Burton MD 909 [place] [address] 10/25/2022 Office Visit ENT Provider, Ent Dysphonia Boots And Shoes Supervisor 10/28/2022 Appointment Speech Therapy Anabel Chew, SMALL KICK PRESS OPERATOR [address] [address] 11/17/2022 Appointment Speech Therapy Anabel Chew, SMALL KICK PRESS OPERATOR [address] [address] 12/23/2022 Office Visit Neurology Colby Yeung MD [address] [id number] Scheduled Procedures Name Priority Associated Diagnoses Date/Time EXCISION, MASS, TORSO Lipoma of skin and subcuta neous 10/10/2022 7:30 AM SUPERINTENDENT LAUNDRY tissue documented as of this encounter Visit Diagnoses Not on filedocumented in this encounter Additional Health Concerns Assessment Noted Time PHQ-9 Depression Total Score: 22 06/28/2021 7:03 AM CD T documented as of this encounter Care Teams Dental Cream Maker Relationship Specialty Start Date End Date Aydee Burton, PCP - General Nurse Practitioner - 05/17/21 REBRANDER DENTAL EQUIPMENT MECHANIC Family [address] [place] [address] [phone] Aydee Burton, Assigned PCP 04/28/21 REBRANDER [facility] [address] [place], [place] [phone] Louisa Hood, Assigned Neuroscience 07/11/21 REBRANDER DENTAL EQUIPMENT MECHANIC Provider [address] [place] [address] eS Levy, Lead Cattle Broker 08/05/21 05/12/22 [facility] Clari Ruiz Pharmacist Pharmacist 08/06/21 06/07/22 [facility] [address] [place] [address] [place], Assigned Sleep 08/01/21 Angel Turcios, Provider [address] [place] [address] Lesly Celaya MD Assigned Surgical 09/05/21 [address] [place] [place] [address] Tawana Patel MA [facility] 09/30/21 Worker Ramses Mcpherson Assigned OBGYN 11/07/21 MD Onesimo Provider [address] [place] [address] Mago Swift, [facility] Lead Cattle Broker Skein Bander - 08/05/21 Clinical documented as of this encounter
--- OUTSIDE RECORDS SUMMARY | 2022-09-21 04:13 | XMS_ITS | Encounter Summary ---
:1980 Author Organization [place] Address [address] [place] [address] Care Team Providers Name Role Phone Aydee Nam APRN ARTIST BLACKSMITH Primary Care Provider Aydee Nam APRN ARTIST BLACKSMITH Unavailable [phone] Louisa Hood SLIP BRIDGE OPERATOR ARTIST BLACKSMITH Unavailable [phone] Se Levy GLASS ETCHER Unavailable Unavailable Clari Ruiz [facility] Unavailable [phone] Angel Hannah MD Unavailable Lesly Celaya MD Unavailable Tawana Patel MA Unavailable Unavailable Ramses Mcpherson MD Unavailable [phone] Mago Swift RN TRANSFER Unavailable Reason for Visit Reason Comments Pre-Op Exam Encounter Details Date Type Department Care Team Description 12/22/2021 Office Visit [facility] Aydee Nam Preoperati ve examination (Primary Dx); [facility] [place] CNP Left elbow pain; 4151 [facility] 4151 [facility] related to worker's compensation claim [address] [place], [place], [place] [phone] Social History Tobacco Use Types Packs/Day Years [...] How often do you attend jainism or gnosticist services? Never 08/05/2021 Do you [...] at Date Recorded Female 11/09/2021 7:53 PM HOCKEY INSTRUCTOR COVID-19 Exposure Response Date Recorded In the last month, have you been in contact with No / Unsure 12/22/2021 11:32 AM HOCKEY INSTRUCTOR someone who was confirmed or suspected to have Coronavirus / COVID-19? documented as of this encounter Last Filed Vital Signs Vital Sign Reading Time Taken Comments Blood Pressure 118/71 12/22/2021 11:46 AM HOCKEY INSTRUCTOR Pulse 117 12/22/2021 11:46 AM HOCKEY INSTRUCTOR Temperature 36.4 ??C (97.6 ??F) 12/22/2021 11:46 AM HOCKEY INSTRUCTOR Respiratory Rate - - Oxygen Saturation 96% 12/22/2021 11:46 AM HOCKEY INSTRUCTOR Inhaled Oxygen Concentration - - Weight 92.1 kg (203 lb) 12/22/2021 11:46 AM HOCKEY INSTRUCTOR Height 170.2 cm (5' 7) 12/22/2021 11:46 AM HOCKEY INSTRUCTOR Body Mass Index 31.79 12/22/2021 11:46 AM HOCKEY INSTRUCTOR documented in this encounter Patient Instructions Patient InstructionsAydee Nam APRN ARTIST BLACKSMITH - 12/22/2021 11:50 AM HOCKEY INSTRUCTOR Preparing for Your Surgery Getting started A [...] list of medicines, including herbal treatments and ejes-tjb-lbuoesh drugs ?? Whether the patient has a [...] having surgery. (If you don't have insurance,call [phone].) ?? Call your clinic if there's any [...] your health care provider. Copyright ?? 2018 [facility]. All rights reserved. Clinically reviewed by Tika Garrett MD. Tirendo [id number] - REV 06/02. EY INSTRUCTOR documented in this encounter Progress Notes Aydee Nam APRN CNP - 12/22/2021 11:50 AM CST Images from the original note were not included. [address] [address] Primary Provider: Aydee Nam Pre-op Performing Provider: AYDEE NAM PREOPERATIVE EVALUATION: Today's date: 12/22/2021 Marta Hill is a 41 year old female who presents for a preoperative evaluation. Surgical Information: Surgery/Procedure: Left elbow - Hardware removed Surgery Location: [facility] Surgeon: Dr Harman Linder Surgery Date: 01/10/2022 Time of Surgery: TBD Where patient plans to recover: At home with family Fax number for surgical facility: [phone] Type of Anesthesia Anticipated: General Assessment & Plan The proposed surgical procedure is considered INTERMEDIATE risk. Preoperative examination Left elbow pain Encounter related to worker's compensation claim Cleared for surgery without concerns. Marta verbalizes understanding of plan of care and is in agreement. - HCG Qual, Urine ([id number]) Possible Sleep Apnea: Borderline plans to get apparatus from her dentist. Risks and Recommendations: The patient has the following additional risks and recommendations for perioperative complications: Of note is having another surgical procedure of laparoscopic hysterectomy on 12-28-21. No identified additional risk factors other than previously addressed Medication Instructions: Wellbutrin, gabapentin, and Lamictal take in a.m. of surgery. Encourage no NSAIDS, aspirin or vitamin supplementation for the next 7 days. Tylenol is okay. RECOMMENDATION: APPROVAL GIVEN to proceed with proposed procedure, without further diagnostic evaluation. Subjective HPI related to upcoming procedure: WC injury 12/26/20; Pt presents for eval of left elbow pain/injury. Tripped at work and fell, landing forward on elbows. [place] a snap. c/o tinging in left hand, especially left 4-5 fingers. Denies hititng head, no LOC.Three-view left elbow demonstrates a moderately displaced intra-articular fracture head of the left radius. Currently has screws that her loose and having significant left elbow pain Preop Questions 12/22/2021 1. Have you ever had a heart [...] previous history of blood clots? YES - father paternal grandmother and maternal grandmother 8. [...] or bloody stools, or abnormal vaginal bleeding? Yes menstrual cycles 11. Have you ever had a blood transfusion? No 12. Are you willing to have a blood transfusion if it is medically needed before, during, or after your surgery? Yes 13. Have you or any of your relatives ever had problems with anesthesia? Yes hard time waking up from surgery 14. Do you have sleep apnea, excessive snoring or daytime drowsiness? Borderline going to get dentalapparatus 14a. Do you have a CPAP machine? - 15. Do you have any artifical heart valves or other implanted medical devices like a pacemaker, defibrillator, or continuous glucose monitor? No 16. Do you have artificial joints? No 17. Are you allergic to latex? No 18. Is there any chance that you may be ? No Health Care Directive: Patient does not have a Health Care Directive or Living Will: Declined Preoperative Review of WOUND CARE RN: WOUND CARE RN reviewed - controlled substances reflected in medication [...] GENITOURINARY SURGERY Tubal ligation and ablasion ??? HUMAN CAPITAL CONSULTANT SURGERY not sure tubal ligation and ablasion [...] Bedtime 2 tablets - 120mg total ??? lamoTRIgine (LAMICTAL) 100 MG tablet Take [...] Take 1 tablet by mouth daily ??? gabapentin (NEURONTIN) 400 MG capsule TAKE 1 CAPSULE BY MOUTH THREE TIMES DAILY Allergies Allergen Reactions ??? Amoxicillin Rash Social [...] Son History Drug Use Unknown Objective BP 118/71 (BP Location: Right arm, Patient Position: Chair, Cuff Size: Adult Large) Pulse 117 Temp 97.6 ??F (36.4 ??C) (Tympanic) Ht 1.702 m (5' 7) Wt 92.1 kg (203 lb) LMP 12/11/2021 (Exact Date) SpO2 96% No BMI 31.79 kg/m?? Physical Exam GENERAL [...] the past 24 hour(s)) HCG Qual, Urine ([id number]) Collection Time: 12/22/21 11:48 AM Result Value Ref Range hCG Urine [...] Signed Electronically by: Aydee Nam APRN CNP EY INSTRUCTOR Aydee Nam APRN CNP - 12/22/2021 11:50 AM CST Images from the original note were not included. Please fax for upcoming ortho surgery. MAURO SpiveyBC EY INSTRUCTOR Ziyad Frausto - 12/22/2021 11:50 AM CST Faxed Pre Op to [facility] @ #[phone]. Ziyad Frausto Insurance Risk Manager EY INSTRUCTOR documented in this encounter Plan of Treatment Upcoming Encounters Date Type Specialty Care Team Description 09/26/2022 Appointment Speech Therapy Obdulio Barrera MD 420 [facility] 276 [place], [place] [address] Anabel Chew, FIBERGLASS BOAT PARTS FINISHER [address] [place] [address] 09/27/2022 Therapy Visit Physical Therapy Luisana Watkins, PT [address] [place] [address] 09/29/2022 Virtual Visit Pain & Palliative Marilia Deluna, Ronald PhD [address] [place] [address] 09/30/2022 Office Visit Family Practice Aydee Nam APRN ARTIST BLACKSMITH [address] [place] [phone] 10/03/2022 Therapy Visit Physical Therapy Una Reardon, PT [address] [place] [phone] 10/10/2022 Hospital Encounter Surgery Lesly Celaya MD [address] [place], [place] [address] 10/10/2022 Office Visit Surgery Lesly Celaya MD [address] [place], [place] [phone] Ninoska Flowers PA-C [address] [place] [address] 10/10/2022 Surgery Surgery Lesly Celaya, EXCISION, MASSES - MD back, abdomen, [address] [place] [address] 10/11/2022 Virtual Visit Pharm Bryce Ruiz, Clari Banks, [facility] [address] [place] [phone] [place], [place] [address] 10/14/2022 Appointment Speech Therapy Anabel Chew, FIBERGLASS BOAT PARTS FINISHER [facility] 516 [facility] 396 [place], [place] [address] 10/21/2022 Office Visit Pulmonology Obdulio Barrera MD 420 [facility] 276 [place], [place] [address] 10/25/2022 PRE VISIT ENT Charo Burton MD Previsit [address]09 [place], [place] [phone] 10/25/2022 Office Visit ENT Charo Burton MD [address] [place], [place] [address] 10/25/2022 Office Visit ENT Provider, Ent Dysphonia Playground Director 10/28/2022 Appointment Speech Therapy Anabel Chew, CELINE [address] [address] 11/17/2022 Appointment Speech Therapy Anabel Chew, CELINE [address] [address] 12/23/2022 Office Visit Neurology Colby Yeung MD [address] [address] Scheduled Procedures Name Priority Associated Diagnoses Date/Time EXCISION, MASS, TORSO Lipoma of skin and subcuta neous 10/10/2022 7:30 AM HOCKEY INSTRUCTOR tissue documented as of this encounter Procedures Procedure Name Priority Date/Time Associated Diagnosis Comme nts HCG QUALITATIVE Routine 12/22/2021 11:48 Preoperative Results for this URINE AM HOCKEY INSTRUCTOR examination procedure are i n the results section. documented in this encounter Results HCG Qual, Urine ([id number]) (12/22/2021 11:48 AM HOCKEY INSTRUCTOR) [facility] Method Time Signature hCG Urine Negative Negative NIKOLAS 12/22/2021 [facility] Qualitative 12:05 PM HOCKEY INSTRUCTOR Comment: This test is for screening purp oses. Results should be interpreted along with the clinical picture. Confirmation testing is available if warranted by ordering [id number], HCG Quantitative . Specimen Anatomical Collection Method Collection Time Receive d Time (Source) Location / / Volume Laterality Urine MID-STREAM URINE Non-blood 12/22/2021 11:48 022 SPECIMEN / Unknown Collection / AM HOCKEY INSTRUCTOR 11:56 AM HOCKEY INSTRUCTOR Unknown Aydee Nam APRN ARTIST BLACKSMITH LAB - URINE ORDERABLES Performing Organization Address City/State/ZIP Code Phon e Number [facility] [place] [address] [facility] [address] [place] [address] S. E. Lab (no room number, 1st floor of clinic) [place] [address], [phone] Clinic - [facility] [address] [facility] S. E Lab (no room number, 1st floor of clinic) documented in this encounter Visit Diagnoses Diagnosis Preoperative examination - Primary Preoperative examination, unspecified Left elbow pain Pain in joint, upper arm Encounter related to worker's compensati on claim Lipoma of skin and subcutaneous tissue Lipoma of other skin and subcutaneous ti ssue documented in this encounter Additional Health Concerns Assessment Noted Time PHQ-9 Depression Total Score: 22 06/28/2021 7:03 AM CD T documented as of this encounter Care Teams Skip Pit Worker Relationship Specialty Start Date End Date Aydee Nam, PCP - General Nurse Practitioner - 05/17/21 SLIP BRIDGE OPERATOR ARTIST BLACKSMITH Family [address] [place] [address] [phone] Aydee Nam, Assigned PCP 04/28/21 SLIP BRIDGE OPERATOR ARTIST BLACKSMITH [address] [place] [id number] Louisa Hood, Assigned Neuroscience 07/11/21 SLIP BRIDGE OPERATOR ARTIST BLACKSMITH Provider [address] [place] [phone] Se Levy, Lead Icing Coater 08/05/21 05/12/22 Clari Francois Pharmacist Pharmacist 08/06/21 06/07/22 Jocelyn [facility] [address] [place], [place] [phone] [place], Assigned Sleep 08/01/21 Angel Turcios, Provider [address] [place] [address] Lesly Cleaya MD Assigned Surgical 09/05/21 [address] Provider [place], [place] [phone] Tawana Patel MA [facility] 09/30/21 Worker Ramses Mcpherson Assigned OBGYN 11/07/21 MD Onesimo Provider [facility] [place] [address] Mago Swift, [facility] Lead Icing Coater Maintenance Chief - 08/05/21 Clinical documented as of this encounter
--- OUTSIDE RECORDS SUMMARY | 2022-09-21 04:13 | XMS_ITS | Encounter Summary ---
:1980 Author Organization [facility] Address [address] [facility] [place] [address] Care Team Providers Name Role Phone Aydee Burton CUSTOMER ENGAGEMENT REPRESENTATIVE TICKET SORTER Primary Care Provider [phone] Aydee Burton CUSTOMER ENGAGEMENT REPRESENTATIVE TICKET SORTER Unavailable [phone] Louisa Hood CUSTOMER ENGAGEMENT REPRESENTATIVE TICKET SORTER Unavailable [phone] Se Levy PACKAGING LINE ATTENDANT Unavailable Unavailable Clari Ruiz [facility] Unavailable [phone] Angel Hannah MD Unavailable Lesly Celaya MD Unavailable Tawana Patel MA Unavailable Unavailable Ramses Mcpherson MD Unavailable [phone] Mago Swift DRESS FITTER Unavailable Reason for Visit Reason Comments Pain Consultation (Routine: Next available opening) - Closed Specialty Diagnoses / Procedures Referred By Contact Refer red To Contact Diagnoses Bilateral occipital neuralgia Upper back pain Lucas Anaya [facility] MD Romel [address] [place] [id number] [place] [address] [place] [phone] Referral ID Status Reason Start Date Expiration Date Visits Requ ested Visits Authorized [id number] Closed 11/10/2021 11/10/2022 1 1 Encounter Details Date Type Department Care Team Description 12/01/2021 Office Visit [facility] Lucas Anaya Trig barry point of shoulder region, unspecified laterality (Primary Dx); Pain Management MD Romel Bilateral occipital neuralgia; [place] [id number] [place] [address] Upper back pain; [address] [place] [address] Chronic myofascial pain [address] [place], [place] [address] [phone] Social History Tobacco Use Types Packs/Day Years [...] How often do you attend yarsanism or bahai services? Never 08/05/2021 Do you belong to [...] at Date Recorded Female 11/09/2021 7:53 PM CONTINUOUS TOWEL ROLLER COVID-19 Exposure Response Date Recorded In the last month, have you been in contact with No / Unsure 12/01/2021 8:05 AM CONTINUOUS TOWEL ROLLER someone who was confirmed or suspected to have Coronavirus / COVID-19? documented as of this encounter Last Filed Vital Signs Vital Sign Reading Time Taken Comments Blood Pressure 129/76 12/01/2021 8:09 AM CONTINUOUS TOWEL ROLLER Pulse 106 12/01/2021 8:09 AM CONTINUOUS TOWEL ROLLER Temperature - - Respiratory Rate - - Oxygen Saturation 98% 12/01/2021 8:09 AM CONTINUOUS TOWEL ROLLER Inhaled Oxygen Concentration - - Weight - - Height - - Body Mass Index - - documented in this encounter Patient Instructions Patient InstructionsViridiana Juarez MA - 12/01/2021 8:00 AM CST [facility] Post Procedure Instructions Today you had: Trigger point injections & Bilateral Occipital nerve block Medications used: lidocaine bupivicaine kenolog ??? Go to the emergency room if you develop any shortness of breath ??? Monitor the injection sites for signs and symptoms of infection-fever, chills, redness, swelling, warmth, or drainage to areas. ??? You may have soreness at injection sites for up to 24 hours. ??? You may apply ice to the painful areas to help minimize the discomfort of the needle pokes. ??? Do not apply heat to sites for at least 12 hours. ??? You may use anti-inflammatory medications or Tylenol for pain control if necessary Pain Clinic phone number during work hours (Monday through Monday 8 am-4:30 pm) at [phone] or the Provider Line after hours at [phone]: INUOUS TOWEL ROLLER documented in this encounter Progress Notes Lucas Anaya MD - 12/01/2021 8:00 AM CST [facility] - Procedure Note Date of Visit: 12/01/2021 Pre procedure Diagnosis: Bilateral occipital neuralgia & Trigger points/myofascial pain/[id number] Post procedure Diagnosis: Same Procedure performed: Bilatearl occipital nerve block & Trigger Point Injections Anesthesia: none Complications: none Operators: Lucas Anaya DO Indications: Marta Hill is a 41 year old female with a history of headaches and chronic upper back and periscapular pain. Exam shows occipital ridge/groove tenderness and tenderness with palpation of the periscapular muscles bilaterally. They have tried conservative treatment including exercises and medications with limited relief. Options/alternatives, benefits and risks were discussed with the patient including bleeding, infection, hematoma, nerve damage, stroke, and spinal cord injury. Questions were answered to her satisfaction and she agrees to proceed. Voluntary informed consent was obtained and signed. Vitals were reviewed: Yes Allergies were reviewed: Yes Medications were reviewed: Yes Pre-procedure pain score: 5/10 Procedure: After getting informed consent, a Pause for the Cause was performed. The occipital ridge, occipital protuberance, and mastoid process were palpated on the left. The location of maximal tenderness which was consistent with the location of the occipital nerve was palpated. The area was cleaned. Palpation for a pulse was completed, with no pulse noted at the site of the injection. A 25G, 1.5 inch needle was introduced, aimed cephalad, in the superficial tissues at this area of tenderness. The injection was completed at this location, fanning in 3 different directions. Aspiration for heme was n egative before all injections. In total, 2.5 ml of 0.5% bupivacaine, and 20mg of kenalog was injected. The patient tolerated the procedure well, hemostasis was achieved. The procedure was then repeated on the right Procedure: After getting informed consent, a Pause for the Cause was performed. Trigger points were identified by patient, and marked when appropriate. The area was prepped with Chloroprep. Using clean technique, injections were completed using a 25G, 1.5 inch needle. After negative aspiration, injection was completed. A total of 10 locations were injected. When possible, tissue was retracted from the chest wall to avoid lung injury. Muscle groups injected: -Bilateral trapezius in 2 locations on each side -Bilateral levator scapulae -Bilateral rhomboid in 2 locations on each side Injection solution contained: 4.5ml of 1% lidocaine and 4.5ml of 0.5% bupivacaine and 40mg of kenalog. Hemostasis was achieved, the area was cleaned, and bandaids were placed when appropriate. The patient tolerated the procedure well. Breath sounds were normal. Post-procedure pain score: 3/10 Assessment/Plan: Marta Hill is a 41 year old female s/p bilateral greater occipital nerve block and trigger point injections for headaches, occipital neuralgia and chronic myofascial pain. 1. Following today's procedure, the patient was advised to contact the [facility] for any of the following: Fever, chills, or night sweats New onset of pain, numbness, or weakness Any questions/concerns regarding the procedure If unable to contact the Pain Center, the patient was instructed to go to a local Emergency Room forany complications. 2.The patient should follow-up with the referring provider in 4-6 weeks for post-procedure evaluation. Lucas Anaya DO [facility] INUOUS TOWEL ROLLER documented in this encounter Plan of Treatment Upcoming Encounters Date Type Specialty Care Team Description 09/26/2022 Appointment Speech Therapy Obdulio Barrera MD [address] [facility] [address] [place], [place] [address] Anabel Chew, CELINE [facility] [address] [facility] [address] [place], [place] [address] 09/27/2022 Therapy Visit Physical Therapy Luisana Watkins, PT [address] [place] [address] 09/29/2022 Virtual Visit Pain & Palliative Marilia Deluna Care PhD [address] [place], [place] [address] 09/30/2022 Office Visit Family Practice Aydee Burton, ELADIO TICKET SORTER [address] [place], [place] [address] 10/03/2022 Therapy Visit Physical Therapy Una Reardon, PT [address] [place] [phone] 10/10/2022 Hospital Encounter Surgery Lesly Celaya MD [address] [place], [place] [address] 10/10/2022 Office Visit Surgery Lesly Celaya MD [address] [place] [address] Ninoska Flowers, FLORES-C [address] [place] [address] 10/10/2022 Surgery Surgery Lesly Celaya, EXCISION, MASSES - MD back, abdomen, [address] [place] [address] 10/11/2022 Virtual Visit Pharm Clari Stoll, [place] [id number] [address] 10/14/2022 Appointment Speech Therapy Anabel Chew, REEL WORKER [facility] [address] [facility] [address] [place] [address] 10/21/2022 Office Visit Pulmonology Obdulio Barrera MD [address] [facility] [address] [place] [address] 10/25/2022 PRE VISIT Charo Carter MD Previsit [address] [place] [address] 10/25/2022 Office Visit Charo Carter MD [address] [place] [address] 10/25/2022 Office Visit ENT Provider, Jeannette Ent Dysphonia Chemical Machine Tender 10/28/2022 Appointment Speech Therapy Anabel Chew, CELINE [address] [address] 11/17/2022 Appointment Speech Therapy Anabel Chew SLP [address] [address] 12/23/2022 Office Visit Neurology Colby Yeung MD [address] [place] [address] Scheduled Procedures Name Priority Associated Diagnoses Date/Time EXCISION, MASS, TORSO Lipoma of skin and subcuta neous 10/10/2022 7:30 AM CONTINUOUS TOWEL ROLLER tissue documented as of this encounter Visit Diagnoses Diagnosis Trigger point of shoulder region, unspec ified laterality - Primary Bilateral occipital neuralgia Other syndromes affecting cervical regio n Upper back pain Pain in thoracic spine Chronic myofascial pain Mylagia and myositis, unspecified Lipoma of skin and subcutaneous tissue Lipoma of other skin and subcutaneous ti ssue documented in this encounter Administered Medications Inactive Administered Medications - up to 3 most recent administrations Medication Order MAR Action Action Date Dose Rate Site bupivacaine (MARCAINE) 0.5% Given 12/01/2021 11:55 AM CONTINUOUS TOWEL ROLLER 20 mg preservative free injection 20 mg (4 mL), Perineural, ONCE, On Mon12/01/21 at 1200, For 1 dose bupivacaine (MARCAINE) 0.5% preservative Given 12/01/2021 11:57 AM CONTINUOUS TOWEL ROLLER 22.5 mg free injection 22.5 mg (4.5 mL), Other, ONCE, On Mon12/01/21 at 1200, For 1 dose lidocaine 1 % 4.5 mL Given 12/01/2021 11:57 AM CONTINUOUS TOWEL ROLLER 4.5 mLs 4.5 mL, Other, ONCE, On Mon12/01/21 at 1200, For 1 dose triamcinolone (KENALOG-40) injection 40 mg Given 12/01/2021 11:55 AM CONTINUOUS TOWEL ROLLER 40 mg 40 mg, Perineural, ONCE, On Mon12/01/21 at 1200, For 1 dose triamcinolone (KENALOG-40) injection 40 mg Given 12/01/2021 11:58 AM CONTINUOUS TOWEL ROLLER 40 mg 40 mg, Intramuscular, ONCE, On Mon12/01/21 at 1200, For 1 dose documented in this encounter Additional Health Concerns Assessment Noted Time PHQ-9 Depression Total Score: 06/28/2021 7:03 AM CD T documented as of this encounter Care Teams Director Prospect Relationship Specialty Start Date End Date Aydee Burton, PCP - General Nurse Practitioner - 05/17/21 CUSTOMER ENGAGEMENT REPRESENTATIVE TICKET SORTER Family [address] [place] [address] Aydee Burton, Assigned PCP 04/28/21 CUSTOMER ENGAGEMENT REPRESENTATIVE TICKET SORTER [address] [place] [address] Louisa Hood, Assigned Neuroscience 07/11/21 CUSTOMER ENGAGEMENT REPRESENTATIVE TICKET SORTER Provider [address] [place] [address] Se Levy, Lead Consumer Electronic Retail Specialist 08/05/21 05/12/22 Clari Francois Pharmacist Pharmacist 08/06/21 06/07/22 Jocelyn [facility] [address] [place] [address] [place], Assigned Sleep 08/01/21 Angel Turcios, Provider [address] [place] [address] Lesly Celaya MD Assigned Surgical 09/05/21 [address] Provider [place], [place] [phone] Tawana Patel MA [facility] 09/30/21 Worker Ramses Mcpherson Assigned OBGYN 11/07/21 MD Onesimo Provider [facility] [place] [address] Mago Swift, [facility] Lead Consumer Electronic Retail Specialist Housekeeper Caregiver - 08/05/21 Clinical documented as of this encounter
--- OUTSIDE RECORDS SUMMARY | 2022-09-21 04:14 | XMS_ITS | Encounter Summary ---
:1980 Author Organization [facility] Address [address] [place] [address] Care Team Providers Name Role Phone Aydee Burton LANDSCAPE CONTRACTOR REFERENCE INVESTIGATOR Primary Care Provider Aydee Burton LANDSCAPE CONTRACTOR REFERENCE INVESTIGATOR Unavailable [phone] Louisa Hood LANDSCAPE CONTRACTOR REFERENCE INVESTIGATOR Unavailable [phone] Se Levy ENVIRONMENTAL REMEDIATION SPECIALIST Unavailable Unavailable Clari Ruiz [facility] Unavailable [phone] Angel Hannah MD Unavailable Lesly Celaya MD Unavailable Tawana Patel MA Unavailable Unavailable Ramses Mcpherson MD Unavailable [phone] Mago Siwft MATLAB DEVELOPER Unavailable Reason for Visit Reason Onset Date Comments Procedure 11/11/2021 trigger point inject ions and bilateral occipital nerve blocks Encounter Details Date Type Department Care Team Description 11/11/2021 [facility] Lucas Anaya (trigger Pain Management MD Romel point injections and [place] [address] [place] bilateral occipital [address] [place] [address] nerve blocks) [address] [place], [place] [address] [phone] Social History Tobacco Use Types Packs/Day Years [...] How often do you attend jainism or mandaen services? Never 08/05/2021 Do you [...] at Date Recorded Female 11/09/2021 7:53 PM ENFORCEMENT SAFETY OFFICER COVID-19 Exposure Response Date Recorded In the last month, have you been in contact with No / Unsure 11/10/2021 8:59 AM ENFORCEMENT SAFETY OFFICER someone who was confirmed or suspected to have Coronavirus / COVID-19? documented as of this encounter Miscellaneous Notes Telephone Encounter - Belinda Roper - 11/11/2021 9:43 AM CST Pre-screening Questions for Clinic Based Injections, Shoulder/Knee, ONB, TPI Injections and Bursa Injection: Botox- no questions needed *of note, it is possible to do occipital nerve blocks and trigger point injections without steroid, so if they feel they need to schedule, we can do that and leave out steroid. Location: ??? [place]: ??? Only schedule on Wednesdays (ultrasound machine NOT available Monday and ) ??? If need to double book, use the 3:30 pm slot ??? [place]: Ultrasound appointments NOT available at this time ??? Julio: ??? [place]: Please send to AMINAH mejia after scheduling to verify U/S availability Does patient have an active infection or treated for one within the past week? No (If YES, do NOT schedule and route to RN) Is patient currently taking any antibiotics? No (If YES, do NOT schedule and route to RN) For patients on chronic, preventative or prophylactic antibiotics, procedures can be scheduled. ??? Kris Franco Snitzer-antibiotic course must have been completed for 4 days Is patient taking any aspirin products? No ??? No need to hold non-aspirin anticoagulants. ? ? If taking > 325mg/day of aspirin, limit aspirin to 81-325mg/day x 1 week. ??? No hold required day of procedure. Has the patient had a flu shot or any other vaccinations within 7 days before or after the procedure. No Have you recently had a COVID vaccine or have plans to get it in the near future? No If yes, explain that for the vaccine to work best they need to: ??? wait 1 week before and 1 week after getting Vaccine #1 ??? wait 1 week before and 2 weeks after getting Vaccine #2 ??? If patient has concerns about the timing, send to AMINAH Ortega Data Support Analyst [facility] RCEMENT SAFETY OFFICER documented in this encounter Plan of Treatment Upcoming Encounters Date Type Specialty Care Team Description 09/26/2022 Appointment Speech Therapy Obdulio Barrera MD [address] [facility] [address] [place] [address] Anabel Chew, DISTRICT SUPERINTENDENT [place] [address] [facility] [address] [place] [address] 09/27/2022 Therapy Visit Physical Therapy Luisana Watkins, PT [address] [place] [address] 09/29/2022 Virtual Visit Pain & Palliative Marilia Deluna, [facility] PhD [address] [place], [place] [address] 09/30/2022 Office Visit Family Practice Aydee Burton, LANDSCAPE CONTRACTOR REFERENCE INVESTIGATOR [address] [place], [place] [address] 10/03/2022 Therapy Visit Physical Therapy Una Reardon, PT [address] [place] [phone] 10/10/2022 Hospital Encounter Surgery Lesly Celaya MD [address] [place], [place] [address] 10/10/2022 Office Visit Surgery Lesly Celaya MD [address] [place] [address] Ninoska Flowers, PA-C [address] [facility] [address] [place], [place] [phone] 10/10/2022 Surgery Surgery Lesly Celaya, EXCISION, MASSES - back, abdomen, [address] right lower [facility] [place] [address] 10/11/2022 Virtual Visit Clari Su, [facility] [address] [facility] [address] [place] [address] 10/14/2022 Appointment Speech Therapy Anabel Chew, DISTRICT SUPERINTENDENT [facility] [address] [place] [address] 10/21/2022 Office Visit Pulmonology Obdulio Barrera MD [address] [facility] [address] [place] [address] 10/25/2022 PRE VISIT ENT Charo Burton MD Previsit [address] [place] [address] 10/25/2022 Office Visit ENT Charo Burton MD [address] [place] [address] 10/25/2022 Office Visit ENT Provider, Jeannette Ent Dysphonia Supervisor Cloth Winding 10/28/2022 Appointment Speech Therapy Anabel Chew, DISTRICT SUPERINTENDENT [address] [address] 11/17/2022 Appointment Speech Therapy Anabel Chew, DISTRICT SUPERINTENDENT [address] [address] 12/23/2022 Office Visit Neurology Colby Yeung MD [address] [place] [address] Scheduled Procedures Name Priority Associated Diagnoses Date/Time EXCISION, MASS, TORSO Lipoma of skin and subcuta neous 10/10/2022 7:30 AM ENFORCEMENT SAFETY OFFICER tissue documented as of this encounter Visit Diagnoses Not on filedocumented in this encounter Additional Health Concerns Assessment Noted Time PHQ-9 Depression Total Score: 22 06/28/2021 7:03 AM CD T documented as of this encounter Care Teams Merchandise Planner Relationship Specialty Start Date End Date Aydee Burton, PCP - General Nurse Practitioner - 05/17/21 LANDSCAPE CONTRACTOR REFERENCE INVESTIGATOR Family [address] [place] [address] [place] [address] Aydee Burton, Assigned PCP 04/28/21 LANDSCAPE CONTRACTOR REFERENCE INVESTIGATOR [address] [place], [place] [address] Louisa Hood, Assigned Neuroscience 07/11/21 LANDSCAPE CONTRACTOR REFERENCE INVESTIGATOR Provider [address] [place], [place] [address] Se Levy, Lead Restaurant Worker 08/05/21 05/12/22 ENVIRONMENTAL REMEDIATION SPECIALISTClari Ordonez Pharmacist Pharmacist 08/06/21 06/07/22 Jocelyn, [facility] [address] [place], [place] [address] [place], Assigned Sleep 08/01/21 Angel Turcios, Provider [address] [place], [place] [address] Lesly Celaya MD Assigned Surgical 09/05/21 [address] Provider [place], [place] [phone] Tawana Patel MA [facility] 09/30/21 Worker Ramses Mcpherson Assigned OBGYN 11/07/21 MD Onesimo Provider [address] [place], [place] [address] Mago Swift, [facility] Lead Restaurant Worker Head Char Filter Tank Tender - 08/05/21 Clinical documented as of this encounter
--- OUTSIDE RECORDS SUMMARY | 2022-09-21 04:14 | XMS_ITS | Encounter Summary ---
:1980 Author Organization [place] Address [address] [place] [address] Care Team Providers Name Role Phone Aydee Burton DEVELOPMENT COORDINATOR FORK TRUCK OPERATOR Primary Care Provider Aydee Burton DEVELOPMENT COORDINATOR FORK TRUCK OPERATOR Unavailable [phone] Louisa Hood DEVELOPMENT COORDINATOR FORK TRUCK OPERATOR Unavailable [phone] Se Levy BATH SOLUTION MAKER Unavailable Unavailable Clari Ruiz [facility] Unavailable Angel Hannah MD Unavailable Lesly Celaya MD Unavailable Tawana Patel MA Unavailable Unavailable Ramses Mcpherson MD Unavailable [phone] Mago Swift BRAND REPRESENTATIVE Unavailable Encounter Details Date Type Department Care Team Description 11/08/2021 Prep for Procedure [facility] Jero Mcpherson Menorrhagia (Primary Dx); [facility] MD Onesimo Dysmenorrhea; [place] [address] Dyspareunia in female [address] [place] [address] [address] [place] [address] Social History Tobacco Use Types [...] er 08/05/2021 How often do you attend mosque or oriental orthodox services? Never 08/05/2021 Do you belong to any clubs or organizations such as mosque N o 08/05/2021 groups, unions, fraternal or [...] at Date Recorded Female 11/09/2021 7:53 PM EYELET MACHINE OPERATOR COVID-19 Exposure Response Date Recorded In the last month, have you been in contact with No / Unsure 11/04/2021 11:14 AM EYELET MACHINE OPERATOR someone who was confirmed or suspected to have Coronavirus / COVID-19? documented as of this encounter Plan of Treatment Upcoming Encounters Date Type Specialty Care Team Description 09/26/2022 Appointment Speech Therapy Obdulio Barrera MD [address] [place] [address]325 Anabel Chew, SUPERVISOR LATHING [facility] [address] [facility] 396 [place], [place] [address] 09/27/2022 Therapy Visit Physical Therapy Luisana Watkins, PT [address] [place] [address] 09/29/2022 Virtual Visit Pain & Palliative Marilia Deluna, [facility] PhD [address] [place], [place] [address]407 09/30/2022 Office Visit Family Practice Aydee Burton, DEVELOPMENT COORDINATOR FORK TRUCK OPERATOR [address] [place] [address] 10/03/2022 Therapy Visit Physical Therapy Una Reardon, PT [address] [place] [address] 10/10/2022 Hospital Encounter Surgery Lesly eClaya MD [address] [place] [address] 10/10/2022 Office Visit Surgery Lesly Celaya MD [address] [place] [address] Ninoska Flowers PA-Ynes [address] [place] [address] 10/10/2022 Surgery Surgery Lesly Celaya, EXCISION, MASSES - MD back, abdomen, [address] right lower [facility] [place] [address] 10/11/2022 Virtual Visit Clari Su, [facility] [address] [id number] [place], [place] [address] 10/14/2022 Appointment Speech Therapy Anabel Chew, SUPERVISOR LATHING [address] [place] [address] 10/21/2022 Office Visit Pulmonology Obdulio Barrera MD [address] [facility] 276 [place] [address] 10/25/2022 PRE VISIT ENT Charo Burton MD Previsit [address] [place] [address]3415 10/25/2022 Office Visit ENT Charo Burton MD [address] [place] [address] 385725 10/25/2022 Office Visit ENT Provider, Ent Dysphonia Closing Specialist 10/28/2022 Appointment Speech Therapy Anabel Chew, SUPERVISOR LATHING [address] [address] 11/17/2022 Appointment Speech Therapy Anabel Chew, SUPERVISOR LATHING [address] [address] 12/23/2022 Office Visit Neurology Colby Yeung MD [address] [place] [address] Scheduled Procedures Name Priority Associated Diagnoses Date/Time EXCISION, MASS, TORSO Lipoma of skin and subcuta neous 10/10/2022 7:30 AM EYELET MACHINE OPERATOR tissue documented as of this encounter Visit Diagnoses Diagnosis Menorrhagia - Primary Excessive or frequent menstruation Dysmenorrhea Dyspareunia in female Lipoma of skin and subcutaneous tissue Lipoma of other skin and subcutaneous ti ssue documented in this encounter Additional Health Concerns Assessment Noted Time PHQ-9 Depression Total Score: 22 06/28/2021 7:03 AM CD T documented as of this encounter Care Teams Director Franchise Sales Relationship Specialty Start Date End Date Aydee Burton, PCP - General Nurse Practitioner - 05/17/21 DEVELOPMENT COORDINATOR FORK TRUCK OPERATOR Family [address] [place] [address]182 Aydee Burton, Assigned PCP 04/28/21 DEVELOPMENT COORDINATOR FORK TRUCK OPERATOR [address] [place], [place] [address] Louisa Hood, Assigned Neuroscience 07/11/21 DEVELOPMENT COORDINATOR FORK TRUCK OPERATOR Provider [address] [place], [place] [address] Se Levy, Lead Interactive Art Director 08/05/21 05/12/22 BATH SOLUTION MAKERClari Ordonez Pharmacist Pharmacist 08/06/21 06/07/22 [facility] [address] [place], [place] [address] [place], Assigned Sleep 08/01/21 Angel Turcios, Provider [address] [place], [place] [address] Lesly Celaya MD Assigned Surgical 09/05/21 [address] Provider [place], [place] [address] Tawana Patel MA [facility] 09/30/21 Worker Ramses Mcpherson Assigned OBGYN 11/07/21 MD Onesimo Provider [address] [place] [address] Mago Swift [facility] Lead Interactive Art Director Swahili Teacher - 08/05/21 Clinical documented as of this encounter
--- OUTSIDE RECORDS SUMMARY | 2022-09-21 04:14 | XMS_ITS | Encounter Summary ---
:1980 Author Organization [place] Address [address] [place] [address] Care Team Providers Name Role Phone Aydee Burton MOLD OPERATOR SENIOR SPECIALIST Primary Care Provider [phone] Aydee Burton MOLD OPERATOR SENIOR SPECIALIST Unavailable [phone] Louisa Hood MOLD OPERATOR SENIOR SPECIALIST Unavailable [phone] Se Levy PROJECT ACCOUNT MANAGER Unavailable Unavailable Clari Ruiz [facility] Unavailable [phone] Angel Hannah MD Unavailable Lesly Celaya MD Unavailable Elizabeth Mcintyre [facility] Unavailable Tawana Patel MA Unavailable Unavailable Mago Swift PUMP HOUSE TECHNICIAN Unavailable Encounter Details Date Type Department Care Team Description 11/04/2021 Travel Social History Tobacco Use Types Packs/Day [...] How often do you attend protestant or presybeterian services? Never 08/05/2021 Do you [...] at Date Recorded Female 11/09/2021 7:53 PM VULNERABILITY ASSESSMENT ANALYST COVID-19 Exposure Response Date Recorded In the last month, have you been in contact with No / Unsure 11/04/2021 11:14 AM VULNERABILITY ASSESSMENT ANALYST someone who was confirmed or suspected to have Coronavirus / COVID-19? documented as of this encounter Plan of Treatment Upcoming Encounters Date Type Specialty Care Team Description 09/26/2022 Appointment Speech Therapy Obdulio Barrera MD [address] [facility] 276 [place], [place] [address] Anabel Chew PIPING ENGINEER [address] [place], [place] [address] 09/27/2022 Therapy Visit Physical Therapy Luisana Watkins, PT [address] [place] [address] 09/29/2022 Virtual Visit Pain & Palliative Marilia Deluna, [facility] PhD [address] [facility] [place] [address] 09/30/2022 Office Visit Family Practice Aydee Burton, MOLD OPERATOR SENIOR SPECIALIST [address] [place], [place] [phone] 10/03/2022 Therapy Visit Physical Therapy David-Una Tang, PT [address] [place] [address] 10/10/2022 Hospital Encounter Surgery Lesly Celaya MD [address] [place] [address] 10/10/2022 Office Visit Surgery Lesly Celaya MD [address] [place] [address] Ninoska Flowers PA-Ynes [address] [place] [address] 10/10/2022 Surgery Surgery Lesly Celaya, EXCISION, MASSES - MD back, abdomen, [address] right [place] [address] 10/11/2022 Virtual Visit Pharm Clari Stoll, [facility] [address] [phone] [place], [place] [address] 10/14/2022 Appointment Speech Therapy Anabel Chew, PIPING ENGINEER [facility] [address] [facility] 396 [place] [address] 10/21/2022 Office Visit Pulmonology Obdulio Barrera MD 420 [facility] 276 [place] [address] 10/25/2022 PRE VISIT ENT Charo Burton MD Previsit 909 [place] [address] 10/25/2022 Office Visit ENT Charo Burton MD [address] [place] [address] 10/25/2022 Office Visit ENT Provider, Ent Dysphonia Fun House Operator 10/28/2022 Appointment Speech Therapy Anabel Chew, PIPING ENGINEER [address] [address] 11/17/2022 Appointment Speech Therapy Anabel Chew, PIPING ENGINEER [address] [address] 12/23/2022 Office Visit Neurology Colby Yeung MD [address] [place] [address] Scheduled Procedures Name Priority Associated Diagnoses Date/Time EXCISION, MASS, TORSO Lipoma of skin and subcuta neous 10/10/2022 7:30 AM VULNERABILITY ASSESSMENT ANALYST tissue documented as of this encounter Visit Diagnoses Not on filedocumented in this encounter Additional Health Concerns Assessment Noted Time PHQ-9 Depression Total Score: 22 06/28/2021 7:03 AM CD T documented as of this encounter Care Teams Correction Officer Penitentiary Relationship Specialty Start Date End Date Aydee Burton, PCP - General Nurse Practitioner - 05/17/21 MOLD OPERATOR SENIOR SPECIALIST Family [address] [place] [address] [phone] Aydee Burton, Assigned PCP 04/28/21 MOLD OPERATOR [facility] [address] [place], [place] [phone] Louisa Hood, Assigned Neuroscience 07/11/21 MOLD OPERATOR SENIOR SPECIALIST Provider [address] [place] [address] Se Levy, Lead Assistant Program Manager 08/05/21 05/12/22 PROJECT ACCOUNT MANAGER Clari Ruiz Pharmacist Pharmacist 08/06/21 06/07/22 [facility] [address] [place] [address] [place], Assigned Sleep 08/01/21 Angel Turcios, Provider [address] [place] [address] Lesly Celaya MD Assigned Surgical 09/05/[address] [place] [address] Elizabeth Mcintyre CNM Assigned OBGYN 09/05/21 11/06/[address] [place] [address] Tawana Patel MA [facility] 09/30/21 Worker Mago Swift [facility] Lead Assistant Program Manager Inseam Trimmer - 08/05/21 Clinical documented as of this encounter
--- OUTSIDE RECORDS SUMMARY | 2022-09-21 04:14 | XMS_ITS | Encounter Summary ---
:1980 Author Organization [place] Address [address] [place] [address] Care Team Providers Name Role Phone Aydee Burton SUPERINTENDENT PLANT RESOURCE CONSERVATION MANAGER Primary Care Provider Aydee Burton SUPERINTENDENT PLANT RESOURCE CONSERVATION MANAGER Unavailable [phone] Louisa Hood SUPERINTENDENT PLANT RESOURCE CONSERVATION MANAGER Unavailable [phone] Se Levy MANAGER ER Unavailable Unavailable Clari Ruiz [facility] Unavailable [phone] Angel Hannah MD Unavailable Lesly Celaya MD Unavailable Tawana Patel MA Unavailable Unavailable Ramses Mcpherson MD Unavailable [phone] Mago Swift ELECTRONIC CALIBRATION TECHNICIAN Unavailable Reason for Visit Reason Onset Date Comments Schedule Surgery 11/08/2021 total laparoscopic h ysterectomy Encounter Details Date Type Department Care Team Description 11/08/2021 [facility] Ramses Mcpherson [facility] Surgery [facility] MD Onesimo (total laparoscopic [place] [address] hysterectomy) 303 [facility] [address] [place] [address] Social History Tobacco Use Types [...] er 08/05/2021 How often do you attend confucianism or rastafarian services? Never 08/05/2021 Do you belong to any clubs or organizations such as confucianism N o 08/05/2021 groups, unions, fraternal or [...] at Date Recorded Female 11/09/2021 7:53 PM PIPELINE WELDER COVID-19 Exposure Response Date Recorded In the last month, have you been in contact with No / Unsure 11/04/2021 11:14 AM PIPELINE WELDER someone who was confirmed or suspected to have Coronavirus / COVID-19? documented as of this encounter Miscellaneous Notes Telephone Encounter - Cheryle Blandonprakash Powell - 11/09/2021 1:59 PM CST Type of surgery: total laparoscopic hysterectomy Location of surgery: [facility] Date and time of surgery: 12/28/21 @ 7:30 am Surgeon: Dr. Mcpherson Pre-Op Appt Date: Patient advised to schedule. Post-Op Appt Date: 01/25/22 Packet sent out: Yes Pre-cert/Authorization completed: No Date: 11/09/21 LINE WELDER Telephone Encounter - Dana Blandon - 11/08/2021 7:34 AM CST Procedure name(s) - multi select Total laparoscopic hysterectomy Reason for procedure Menorrhagia, dysmenorrhea, dyspareunia Surgeon: Ky Is this a multi surgeon case? Yes [place] or [place] Laterality N/A Request for additional equipment Other (see comments) None Anesthesia General Initiate Pre-op orders for above procedure: Yes, as ordered in Epic Additional orders noted there also Location of Case: [facility] PA Cream Gatherer: No Operating room event staff member requested: No Urgency of Surgery: Routine Surgeon Procedure Time (incision to closure) in minutes (per procedure as applicable) 120 Note: Surgical Case Time Needed (in minutes) Patient Class (for admit prior to surgery, specify number of days in comments): Same day (hospital outpatient) Why can???t this outpatient surgery be done at the [facility] or ASC? Preference H&P To Be Completed By: PCP Tin Pourer needed? No Post-Op Appointment 4 weeks Vendor Needed? No Spinal Cord Monitoring? No Patient has Electronic Implant: No LINE WELDER documented in this encounter Plan of Treatment Upcoming Encounters Date Type Specialty Care Team Description 09/26/2022 Appointment Speech Therapy Obdulio Barrera MD [address] [facility] 276 [place] [address] Anabel Chew, HYPO DIPPER [address] 67[address] [facility] 396 [place], [place] [address] 09/27/2022 Therapy Visit Physical Therapy Luisana Watkins, PT [address] [place] [address] 09/29/2022 Virtual Visit Pain & Palliative Marilia Deluna, [facility] PhD [address] [place] [address] 09/30/2022 Office Visit Family Practice Aydee Burtonlotte, SUPERINTENDENT PLANT RESOURCE CONSERVATION MANAGER [address] [place], [place] [address] 10/03/2022 Therapy Visit Physical Therapy Una Reardon, PT [address] [place] [phone] 10/10/2022 Hospital Encounter Surgery Lesly Celaya MD [address] [place], [place] [address] 10/10/2022 Office Visit Surgery Lesly Celaya MD [address] [place], [place] [address] Ninoska Flowers PA-Ynes [address] [facility] 300 [place] [address] 10/10/2022 Surgery Surgery Lesly Celaya, EXCISION, MASSES - MD back, abdomen, [address] right lower [facility] [place] [address] 10/11/2022 Virtual Visit Clari Su, [facility] [address] [phone] [place], [place] [address] 10/14/2022 Appointment Speech Therapy Anabel Chew, HYPO DIPPER [facility] 516 [facility] 396 [place], [place] [address] 10/21/2022 Office Visit Pulmonology Obdulio Barrera MD 420 [facility] 276 [place] [address] 10/25/2022 PRE VISIT ENT Charo Burton MD Previsit [address] [place] [address] 10/25/2022 Office Visit ENT Charo Burton MD [address] [place] [address] 10/25/2022 Office Visit ENT Provider, Jeannette Ent Dysphonia Bulk Loader 10/28/2022 Appointment Speech Therapy Anabel Chew, HYPO DIPPER [address] [address] 11/17/2022 Appointment Speech Therapy Anabel Chew, HYPO DIPPER [address] [address] 12/23/2022 Office Visit Neurology Colby Yeung MD [address] [place] [address] Scheduled Procedures Name Priority Associated Diagnoses Date/Time EXCISION, MASS, TORSO Lipoma of skin and subcuta neous 10/10/2022 7:30 AM PIPELINE WELDER tissue documented as of this encounter Visit Diagnoses Not on filedocumented in this encounter Additional Health Concerns Assessment Noted Time PHQ-9 Depression Total Score: 22 06/28/2021 7:03 AM CD T documented as of this encounter Care Teams Professional Healthcare Representative Relationship Specialty Start Date End Date Aydee Burton, PCP - General Nurse Practitioner - 05/17/21 SUPERINTENDENT PLANT RESOURCE CONSERVATION MANAGER [facility] [address] [place] [address] [id number] Aydee Burton, Assigned PCP 04/28/21 SUPERINTENDENT PLANT [facility] [address] [place] [address] 429092 Louisa Hood, Assigned Neuroscience 07/11/21 SUPERINTENDENT PLANT RESOURCE CONSERVATION MANAGER Provider [address] [place], [place] [address] Se Levy, Lead Credit Card Interviewer 08/05/21 05/12/22 MANAGER ERClari Ordonez Pharmacist Pharmacist 08/06/21 06/07/22 Jocelyn, [facility] [address] [place], [place] [address] [place], Assigned Sleep 08/01/21 Angel Turcios, Provider [address] [place], [place] [address] Lesly Celaya MD Assigned Surgical 09/05/21 [address] Provider [place], [place] [address] Tawana Patel MA [facility] Health 09/30/21 Worker Ramses Mcpherson Assigned OBGYN 11/07/21 MD Onesimo Provider [address] [place], [place] [address] Mago Swift ELECTRONIC CALIBRATION TECHNICIAN Lead Credit Card Interviewer Change Lead - 08/05/21 Clinical documented as of this encounter
--- OUTSIDE RECORDS SUMMARY | 2022-09-21 04:14 | XMS_ITS | Encounter Summary ---
:1980 Author Organization [place] Address [address] [place] [address] Care Team Providers Name Role Phone Aydee Burton TIRE BUFFER BACKREST ASSEMBLER Primary Care Provider Aydee Burton TIRE BUFFER BACKREST ASSEMBLER Unavailable [phone] Louisa Hood TIRE BUFFER BACKREST ASSEMBLER Unavailable [phone] Se Levy SALT WASHER Unavailable Unavailable Clari Ruiz [facility] Unavailable Angel Hannah MD Unavailable Lesly Celaya MD Unavailable Tawana Patel MA Unavailable Unavailable Ramses Mcpherson MD Unavailable [phone] Mago Swift STUDIO PRODUCER Unavailable Reason for Visit Reason Onset Date Comments Forms 11/10/2021 Faxed [facility] Forms Encounter Details Date Type Department Care Team Description 11/10/2021 Telephone [facility] Lucas Anaya Form s (Faxed [facility] Pain Management MD Romel Forms) [place] [address] [address] [place] [address] [address] [place] [address] [phone] Social History Tobacco Use Types Packs/Day Years [...] often do you attend roman catholic or buddhist services? Never 08/05/2021 Do [...] Recorded Female 11/09/2021 7:53 PM REAL ESTATE PHOTOGRAPHER COVID-19 Exposure Response Date Recorded In the last month, have you been in contact with No / Unsure 11/10/2021 8:59 AM REAL ESTATE PHOTOGRAPHER someone who was confirmed or suspected to have Coronavirus / COVID-19? documented as of this encounter Miscellaneous Notes Telephone Encounter - Viridiana Juarez MA - 11/10/2021 12:53 PM CST Faxed [facility] forms, [facility], [place], [facility], Right Fax confirmed. ROIs placed into scanning. ISMA Bañuelos [facility] ESTATE PHOTOGRAPHER documented in this encounter Plan of Treatment Upcoming Encounters Date Type Specialty Care Team Description 09/26/2022 Appointment Speech Therapy Obdulio Barrera MD 420 [facility] 276 [place], [place] [address] Anabel Chew, ADMINISTRATIVE SUPPORT COORDINATOR [facility] 516 [facility] 396 [place], [place] [address] 09/27/2022 Therapy Visit Physical Therapy Luisana Watkins, PT [address] [place] [address] 09/29/2022 Virtual Visit Pain & Palliative Marilia Deluna, Care PhD [address] [place] [address] 09/30/2022 Office Visit Family Practice Aydee Burton, TIRE BUFFER BACKREST ASSEMBLER [address] [place] [address]29712 10/03/2022 Therapy Visit Physical Therapy Una Reardon, PT [address] [place] [address] 10/10/2022 Hospital Encounter Surgery Lesly Celaya MD [address] [place], [place] [address] 10/10/2022 Office Visit Surgery Lesly Celaya MD [address] [place], [place] [phone] Ninoska Flowers PA-C [address] [place] [address] 10/10/2022 Surgery Surgery Lesly Celaya, EXCISION, MASSES - MD back, abdomen, [address] [place] [address] 10/11/2022 Virtual Visit Clari Su, [facility] [address] [phone] [place] [address] 10/14/2022 Appointment Speech Therapy Anabel Chew, ADMINISTRATIVE SUPPORT COORDINATOR [address] [address] 10/21/2022 Office Visit Pulmonology Obdulio Barrera MD [address] [address] 10/25/2022 PRE VISIT ENT Charo Burton MD Previsit [address] [place], [place] [address] 10/25/2022 Office Visit ENT Charo Burton MD [address] [place], [place] [address] 10/25/2022 Office Visit ENT Provider, Ent Dysphonia Wraparound Facilitator 10/28/2022 Appointment Speech Therapy Anabel Chew, ADMINISTRATIVE SUPPORT COORDINATOR [address] 432085 11/17/2022 Appointment Speech Therapy Anabel Chew, ADMINISTRATIVE SUPPORT COORDINATOR [address] 4[address] 12/23/2022 Office Visit Neurology Colby Yeung MD [address] [place] [address] Scheduled Procedures Name Priority Associated Diagnoses Date/Time EXCISION, MASS, TORSO Lipoma of skin and subcuta neous 10/10/2022 7:30 AM REAL ESTATE PHOTOGRAPHER tissue documented as of this encounter Visit Diagnoses Not on filedocumented in this encounter Additional Health Concerns Assessment Noted Time PHQ-9 Depression Total Score: 06/28/2021 7:03 AM CD T documented as of this encounter Care Teams Senior Java Web Application Developer Relationship Specialty Start Date End Date Aydee Burton, PCP - General Nurse Practitioner - 05/17/21 TIRE BUFFER BACKREST ASSEMBLER Family [address] [place] [address] Aydee Burton, Assigned PCP 04/28/21 TIRE BUFFER BACKREST ASSEMBLER [address] [place] [address] Louisa Hood, Assigned Neuroscience 07/11/21 TIRE BUFFER BACKREST ASSEMBLER Provider 500 [place] [address] Se Levy, Lead Boom Man 08/05/21 05/12/22 Clari Francois Pharmacist Pharmacist 08/06/21 06/07/22 oJcelyn [facility] [address] [place], [place] [phone] [place], Assigned Sleep 08/01/21 Angel Turcios, Provider [address] [place] [address] Lesly Celaya MD Assigned Surgical 09/05/21 [address] Provider [place], [place] [phone] Tawana Patel MA [facility] 09/30/21 Worker Ramses Mcpherson Assigned OBGYN 11/07/21 MD Onesimo Provider [facility] [place] [address] Mago Swift, [facility] Lead Boom Man Pig Farm Manager - 08/05/21 Clinical documented as of this encounter
--- OUTSIDE RECORDS SUMMARY | 2022-09-21 04:14 | XMS_ITS | Encounter Summary ---
:1980 Author Organization [facility] Address [address] [place] [address] Care Team Providers Name Role Phone Aydee Burton ALGORITHM DESIGN ENGINEER MUD ANALYSIS WELL LOGGING OPERATOR Primary Care Provider [phone] Aydee Burton ALGORITHM DESIGN ENGINEER MUD ANALYSIS WELL LOGGING OPERATOR Unavailable [phone] Louisa Hood ALGORITHM DESIGN ENGINEER MUD ANALYSIS WELL LOGGING OPERATOR Unavailable [phone] Se Levy CONTENT CURATOR Unavailable Unavailable Clari Ruiz [facility] Unavailable [phone] Angel Hannah MD Unavailable Lesly Celaya MD Unavailable Tawana Patel MA Unavailable Unavailable Ramses Mcpherson MD Unavailable [phone] Mago Swift PHYSICAL SCIENCE TEACHER Unavailable Reason for Visit (Routine) - Closed Specialty Diagnoses / Procedures Referred By Contact Refer red To Contact Respiratory Therapy Procedures Rh Respiratory Ther PULMONARY FUNCTION [address] [place] [address] Phone: Referral ID Status Reason Start Date Expiration Date Visits Requ ested Visits Authorized [id number] Closed 11/16/2021 11/16/2022 1 1 Encounter Details Date Type Department Care Team Description 11/16/2021 Hospital Encounter [facility] Aydee Burton Andry leoness of breath; [facility] ELADIO Mendez of chest tightness Therapy MUD ANALYSIS WELL LOGGING OPERATOR [address] [facility] [address] [place], [place] [phone] Social History Tobacco Use Types Packs/Day Years [...] How often do you attend mormonism or pentecostal services? Never 08/05/2021 Do you [...] at Date Recorded Female 11/09/2021 7:53 PM MONUMENT STONECUTTER COVID-19 Exposure Response Date Recorded In the last month, have you been in contact with No / Unsure 11/16/2021 3:28 PM MONUMENT STONECUTTER someone who was confirmed or suspected to have Coronavirus / COVID-19? documented as of this encounter Medications at Time of Discharge Medication Sig Dispensed Refills Start Date End Date acetaminophen (TYLENOL) Take 500-1,000 mg 0 500 MG tablet by mouth every 6 hours as needed for mild pain buPROPion (WELLBUTRIN Take 1 tablet (300 30 tablet 2 2020 XL) 300 MG 24 hr mg) by mouth daily tabletIndications: PTSD (post-traumatic stress disorder) DULoxetine (CYMBALTA) 60 Take 120 mg by 0 MG capsule mouth At Bedtime 2 tablets - 120mg total vitamin D3 Take 1 tablet by 0 (CHOLECALCIFEROL) 50 mcg mouth daily (2000 units) tablet ascorbic acid (VITAMIN Take 750 mg by 0 06/16/2022 C) 250 MG CHEW chewable mouth daily tablet ELDERBERRY PO Take 100 mg by 0 022 mouth daily gabapentin (NEURONTIN) Take 1 capsule (400 120 capsule 2 12/10/2021 400 MG mg) by mouth 4 capsuleIndications: PTSD times daily (post-traumatic stress disorder) gabapentin (NEURONTIN) Take 1 tablet (800 90 tablet 0 11/1012/22/2021 800 MG mg) by mouth 3 tabletIndications: times daily Bilateral occipital neuralgia, Upper back pain, Chronic tension-type headache, not intractable ibuprofen (ADVIL/MOTRIN) Take 400-600 mg by 0 12/10/2021 200 MG tablet mouth every 6 hours as needed for pain lamoTRIgine (LAMICTAL) Take by mouth daily 0 09/1301/14/2022 100 MG tablet And a 200mg Total dose in 300mg daily lamoTRIgine (LAMICTAL) Take by mouth daily 0 09/1301/14/2022 200 MG tablet With a 100 mg to total 300mg daily ondansetron (ZOFRAN-ODT) Take 1-2 tablets 4 tablet 0 12/2801/14/2022 4 MG ODT tabIndications: (4-8 mg) by mouth S/P laparoscopic every 8 hours as hysterectomy needed for nausea oxyCODONE (ROXICODONE) 5 Take 1-2 tablets 12 tablet 0 12/2801/14/2022 MG tabletIndications: (5-10 mg) by mouth S/P laparoscopic every 4 hours as hysterectomy needed for moderate to severe pain oxyCODONE (ROXICODONE) 5 Take 1 tablet (5 6 tablet 0 10/1212/10/2021 MG tabletIndications: mg) by mouth every Lipoma of torso 4 hours as needed for moderate to severe pain QUEtiapine (SEROQUEL) Take 1 tablet (100 30 tablet 2 202001/14/2022 100 MG mg) by mouth At tabletIndications: Bedtime Insomnia due to psychological stress documented as of this encounter Progress Notes Luis Boss, RT - 11/16/2021 4:48 PM CST PFT Note: Pt completed pulmonary function testing with [facility]CO. Good Pt effort and cooperation. Spirometry Meets all ATS recommendations. Plethysmography All plethysmographic measurements meet ATS recommendations. DLCO Meets all ATS recommendations. DLCO is an average of 2 maneuvers. No recent Hgb for DLCO correction. November 16, 2021.4:48 PM Luis Wu. RT Gera MENT STONECUTTER documented in this encounter Miscellaneous Notes Result Encounter Note - Aydee Burton APRN CNP - 11/16/2021 11:59 PM CST Dear Marta, Here is a summary of your recent test results: Pulmonary lung function testing is normal. I would keep upcoming appointment with cardiology if theydo not feel it is anything from a heart standpoint then perhaps she should see pulmonology. For additional lab test information, [email or web address] is an excellent reference. In addition, here is a list of due or overdue Health Maintenance reminders: There are no preventive care reminders to display for this patient. Please call us at [phone] (or use [employer]) to address the above recommendations if needed. Thank you for choosing [facility]. It was an honor and a privilege to participate in your care. Healthy regards, TARA [facility] MENT STONECUTTER documented in this encounter Plan of Treatment Upcoming Encounters Date Type Specialty Care Team Description 09/26/2022 Appointment Speech Therapy Obdulio Barrera MD [address] [place], [place] [address] Anabel Chew, LITHOGRAPHIC PROOFER APPRENTICE [facility] [address] [place], [place] [address] 09/27/2022 Therapy Visit Physical Therapy Luisana Watkins, PT [address] [place] [address] 09/29/2022 Virtual Visit Pain & Palliative Marilia Deluna, [facility] PhD [address] [employer], [place] [address] 09/30/2022 Office Visit Family Practice Aydee Burton, ALGORITHM DESIGN ENGINEER MUD ANALYSIS WELL LOGGING OPERATOR [address] [place] [phone] 10/03/2022 Therapy Visit Physical Therapy Una Reardon, PT [address] [place] [address] 10/10/2022 Hospital Encounter Surgery Lesly Celaya MD [address] [place], [place] [phone] 10/10/2022 Office Visit Surgery Lesly Celaya MD [address] [place], [place] [phone] Ninoska Flowers PA-C [address] [place], [place] [phone] 10/10/2022 Surgery Surgery Lesly Celaya, EXCISION, MASSES - MD back, abdomen, [address] right lower [facility] [place], [place] [address] 10/11/2022 Virtual Visit Pharm Clari Stoll, [facility] [address] [place] [address] 10/14/2022 Appointment Speech Therapy Anabel Chew, LITHOGRAPHIC PROOFER APPRENTICE [address] [address] 10/21/2022 Office Visit Pulmonology Obdulio Barrera MD [address] [address] 10/25/2022 PRE VISIT ENT Charo Burton MD Previsit [address] [place], [place] [address] 10/25/2022 Office Visit ENT Charo Burton MD [address] [place], [place] [address] 10/25/2022 Office Visit ENT Provider, Ent Dysphonia Coil Winder Hand 10/28/2022 Appointment Speech Therapy Anabel Chew, CELINE [address] [address] 11/17/2022 Appointment Speech Therapy Anabel Chew SLP [address] [address] 12/23/2022 Office Visit Neurology Colby Yeung MD [address] [place] [phone] Scheduled Orders Name Type Priority Associated Diagnoses Order S chedule Pulmonary Function Test PFT Routine Shortnes s of breath 1 Occurrences starting Feeling of chest 11/16/2021 until tightness 11/16/2021 Scheduled Procedures Name Priority Associated Diagnoses Date/Time EXCISION, MASS, TORSO Lipoma of skin and subcuta neous 10/10/2022 7:30 AM MONUMENT STONECUTTER tissue documented as of this encounter Procedures Procedure Name Priority Date/Time Associated Diagnosis Comme nts PFT GENERAL LAB Routine 11/16/2021 3:32 PM Shortness of breath Results for this TESTING MONUMENT STONECUTTER Feeling of chest procedure a re in tightness the results section. documented in this encounter Results General PFT Lab (Please always keep checked) (11/16/2021 3:32 PM MONUMENT STONECUTTER) P athologist Signature FVC-Pred 3.93 L [facility] FVC-Pre 3.85 L [facility] FVC-%Pred-Pre 97 % [facility] FEV1-Pre 3.29 L [facility] FEV1-%Pred-Pre 102 % [facility] [id number] 82 % [facility] [id number] 86 % [facility] FEFMax-Pred 7.25 L/sec [facility] FEFMax-Pre 8.70 L/sec [facility] FEFMax-%Pred-Pr 119 % [facility] e [id number] 3.35 L/sec [facility] [id number] 3.84 L/sec [facility] [id number]-%Pred-P 114 % [facility] re ExpTime-Pre 7.82 sec [facility] FIFMax-Pre 5.59 L/sec [facility] VC-Pred 3.93 L [facility] VC-Pre 3.95 L [facility] VC-%Pred-Pre 100 % [facility] IC-Pred 3.11 L [facility] IC-Pre 2.50 L [facility] IC-%Pred-Pre 80 % [facility] ERV-Pred 0.83 L [facility] ERV-Pre 1.45 L [facility] ERV-%Pred-Pre 175 % [facility] [id number] 84 % [facility] [id number] 85 % [facility] FRCPleth-Pred 2.78 L [facility] FRCPleth-Pre 2.66 L [facility] FRCPleth-%Pred- 95 % [facility] Pre RVPleth-Pred 1.65 L [facility] RVPleth-Pre 1.21 L [facility] RVPleth-%Pred-P 73 % [facility] re TLCPleth-Pred 5.23 L [facility] TLCPleth-Pre 5.16 L [facility] TLCPleth-%Pred- 98 % [facility] Pre DLCOunc-Pred 23.26 ml/min/mmHg [facility] DLCOunc-Pre 26.23 ml/min/mmHg [facility] DLCOunc-%Pred-P 112 % [facility] re VA-Pre 4.72 L [facility] VA-%Pred-Pre 89 % [facility] [id number] 82 % [facility] [id number] 83 % [facility] Specimen (Source) Anatomical Collection Method Collection Time Re ceived Time Location / / Volume Laterality 11/16/2021 3:32 PM MONUMENT STONECUTTER Narrative [facility] - 11/23/2021 5:06 PM MONUMENT STONECUTTER The FVC, FEV1, FEV1/FVC ratio and AOM63-17% are within normal limits. ??The inspiratory and expiratory flow rates are within normal limits. ??Lung volumes are within normal limits. ??The diffusing capac ity is normal. ??However, the diffusing capacity was not corrected for the patient's hemoglobin. IMPRESSION: Normal spirometry, diffusing capacity an d lung volumes. ?This interpretation has been electro nically signed: ??RICH CLOE 11/23/2021 ??05:01:17 PM? Aydee Burton APRN MUD ANALYSIS WELL LOGGING OPERATOR PFT ORDERABLES Performing Organization Address City/State/ZIP Code Phon e Number [facility] documented in this encounter Visit Diagnoses Diagnosis Shortness of breath Feeling of chest tightness Other chest pain Lipoma of skin and subcutaneous tissue Lipoma of other skin and subcutaneous ti ssue documented in this encounter Additional Health Concerns Assessment Noted Time PHQ-9 Depression Total Score: 22 06/28/2021 7:03 AM CD T documented as of this encounter Care Teams Research Electrician Relationship Specialty Start Date End Date Aydee Burton, PCP - General Nurse Practitioner - 05/17/21 ALGORITHM DESIGN ENGINEER MUD ANALYSIS WELL LOGGING OPERATOR Family [address] [place], [place] [phone] Aydee Burton, Assigned PCP 04/28/21 ALGORITHM DESIGN ENGINEER MUD ANALYSIS WELL LOGGING OPERATOR [address] [place], [place] [phone] Louisa Hood, Assigned Neuroscience 07/11/21 ALGORITHM DESIGN ENGINEER MUD ANALYSIS WELL LOGGING OPERATOR Provider [address] [place], [place] [phone] Se Levy, Lead Cleaning Manager 08/05/21 05/12/22 [facility] Clari Ruiz Pharmacist Pharmacist 08/06/21 06/07/22 [facility] [address] [place], [place] [phone] [place], Assigned Sleep 08/01/21 Angel Turcios, Provider [address] [place] [address] Lesly Celaya MD Assigned Surgical 09/05/21 [address] Provider [place], [place] [phone] Tawana Patel MA [facility] 09/30/21 Worker Ramses Mcpherson Assigned OBGYN 11/07/21 MD Onesimo Provider [address] [place], [place] [phone] Mago Swift, [facility] Lead Cleaning Manager Policy Services Representative - 08/05/21 Clinical documented as of this encounter
--- OUTSIDE RECORDS SUMMARY | 2022-09-21 04:14 | XMS_ITS | Encounter Summary ---
:1980 Author Organization [facility] Address [address] [place] [address] Care Team Providers Name Role Phone Aydee Burton COMPOSING ROOM SUPERVISOR DIAL LATHE OPERATOR Primary Care Provider Aydee Burton COMPOSING ROOM SUPERVISOR DIAL LATHE OPERATOR Unavailable [phone] Louisa Hood COMPOSING ROOM SUPERVISOR DIAL LATHE OPERATOR Unavailable [phone] Se Levy MELT SUPERINTENDANT Unavailable Unavailable Clari Ruiz [facility] Unavailable [phone] Angel Hannah MD Unavailable Lesly Celaya MD Unavailable Tawana Patel MA Unavailable Unavailable Ramses Mcpherson MD Unavailable [phone] Mago Swift DIE CAST OPERATOR Unavailable Reason for Referral Consultation (Routine: Next available opening) - Closed Specialty Diagnoses / Procedures Referred By Contact Refer red To Contact Diagnoses Bilateral occipital neuralgia Upper back pain Lucas Anaya [facility] MD Romel [address] [place] [address] [facility] [place] [phone] Referral ID Status Reason Start Date Expiration Date Visits Requ ested Visits Authorized [id number] Closed 11/10/2021 11/10/2022 1 1 Scheduling Instructions Interventional Evaluation: Interventional Injection Only - Type of Injection: trigger point injections and bilateral occipital nerve blocks Radiolo gy? No ain Consult (Routine: Next available opening) - Closed Specialty Diagnoses / Procedures Referred By Contact Refer red To Contact Diagnoses Bilateral occipital neuralgia Upper back pain Chronic tension-type headache, not intractable Lucas Anaya [facility] MD Romel SERVICES [id number] [place] [id number] [place] [phone] Phone: Referral ID Status Reason Start Date Expiration Date Visits Requ ested Visits Authorized [id number] Closed 11/10/2021 11/10/2022 1 1 Scheduling Instructions Pain Management Provider Services: Ph.D. Evaluation: headaches, chronic upp er back/neck pain, recent elbow fracture/surgery NG MACHINE OPERATOR HELPER Reason for Visit Reason Comments Pain Consultation (Routine) - Closed Specialty Diagnoses / Procedures Referred By Contact Refer red To Contact Pain Medicine Diagnoses Bilateral occipital neuralgia Aydee Burton, Terri [facility] PAIN COMPOSING ROOM SUPERVISOR DIAL LATHE OPERATOR CLINIC [address] [place] [address] [place] [address] Phone: Fax: Referral ID Status Reason Start Date Expiration Date Visits Requ ested Visits Authorized [id number] Closed 09/15/2021 09/15/2022 1 1 Encounter Details Date Type Department Care Team Description 11/10/2021 Office Visit [facility] Lucas Anaya teral occipital neuralgia (Primary Dx); Pain Management MD Romel Upper back pain; [place] [address] [address] Chronic tension-type headache, not intra ctable [address] [place] [address] [address] [place] [address] [phone] Social History Tobacco Use Types Packs/Day Years [...] er 08/05/2021 How often do you attend bahai or amish services? Never 08/05/2021 Do you belong to any clubs or organizations such as bahai N o 08/05/2021 groups, unions, fraternal or [...] at Date Recorded Female 11/09/2021 7:53 PM BORING MACHINE OPERATOR HELPER COVID-19 Exposure Response Date Recorded In the last month, have you been in contact with No / Unsure 11/10/2021 8:59 AM BORING MACHINE OPERATOR HELPER someone who was confirmed or suspected to have Coronavirus / COVID-19? documented as of this encounter Last Filed Vital Signs Vital Sign Reading Time Taken Comments Blood Pressure 120/80 11/10/2021 9:02 AM BORING MACHINE OPERATOR HELPER Pulse 110 11/10/2021 9:02 AM BORING MACHINE OPERATOR HELPER Temperature - - Respiratory Rate - - Oxygen Saturation 98% 11/10/2021 9:02 AM BORING MACHINE OPERATOR HELPER Inhaled Oxygen Concentration - - Weight - - Height - - Body Mass Index - - documented in this encounter Patient Instructions Patient InstructionsLarry Viridianageena Powell MA - 11/10/2021 9:00 AM CST 1. Change gabapentin to 800mg three times daily, follow this titration schedule: Increase gabapentin as follows: 1 tab= 300mg AM PM Bedtime 400 400 800mg (2 tab). After 4 days, increase as tolerated to the next line 800 400 800mg (2 tab). After 4 days, increase as tolerated to the next line 800 800 800mg (2 tab). After 4 days, increase as tolerated to the next line Call with any problems or when you are at this dose. We can prescribe 600mg tabs going forwards. 2. I ordered occipital nerve blocks and trigger point injections, you'll be called to schedule. 3. Try the following yoga videos: [email or web address] Clinic Number: [phone] ??? Call with any questions about your care and for scheduling assistance. ??? Calls are returned Monday through Monday between 8 AM and 4:30 PM. We usually get back to you within 2 business days depending on the issue/request. If we are prescribing your medications: ?? For opioid medication refills, call the clinic or send a Vidtel message 7 days in advance. Please include: ?? Name of requested medication ?? Name of the pharmacy. ?? For non-opioid medications, call your pharmacy directly to request a refill. Please allow 3-4 days to be processed. ?? Per [place] State Law: ?? All controlled substance prescriptions [...] may lead to dismissal from the clinic. NG MACHINE OPERATOR HELPER documented in this encounter Progress Notes Lucas Anaya MD - 11/10/2021 9:00 AM CST [facility] Consultation Date of visit: 11/09/2021 Assessment: Marta Hill is a 41 year old with past medical history including: PTSD, Anxiety, Depression, who presents for evaluation and treatment of the following chronic pain conditions: 1. Chronic headaches: Marta has had a long standing history of chronic neck pain and headaches and has been diagnosed with occipital neuralgia at [facility] years ago. Currently they are experiencing daily holocephalic headaches with mixed features of occipital neuralgia and tension type headaches. They are neurologically intact on exam with exception of mildly reduced sensation in the left handcompared to the right. 2. Chronic bilateral upper back and neck pain: These symptoms have also been present for years and exacerbate her headaches. On exam their cervical ROM is mildly reduced in side bending and rotation tothe right. They have trigger points in the periscapular muscles which are worse on the right side aswell. 3. Left arm pain: They sustained a radial head fracture of the left elbow in dec 2020 and may undergo another surgery to have screws removed. EMG was completed due to neuropathic pain and suspicion of ulnar neuropathy, results are pending. Mental Health - the patient's mental health concerns, specifically anxiety, stress, depression, affect her experience of pain and contribute to her clinically significant distress. Plan: The following recommendations were given to the patient. Diagnosis, treatment options, risks, benefits, and alternatives were discussed, and all questions were answered. The patient expressed understanding of the plan for management. I am recommending a multidisciplinary treatment plan to help this patient better manage her pain. This includes: 1. Physical Therapy: Discussed that working with our chronic pain therapist would be beneficial for their pain but would like to wait until their elbow surgery and subsequent PT is completed. 2. Clinical Health Pain Psychologist: Pain phd [...] pain is persistent. 5. Medication Management: 1. Increase gabapentin to 800mg TID 2. Continue duloxetine 120mg hs 3. Consider muscle relaxants. 6. Further procedures recommended: TPI and bilateral ONB ordered. 7. Release of information: [facility], neurology clinic 8. Follow up: 1 month after injections. Lucas Anaya, [facility] Reason for consultation: Marta Hill is a 41 year old female who is seen in consultation today at the request of her primary care physician, Aydee Burton. Consultation and Evaluation for: chronic pain Review of [place] Prescription Monitoring Program (DRAMA PROFESSOR): Today I have also reviewed the patient's history of controlled substance use, as provided by [place] licensed pharmacies and prescriber dispensers. Review of Pain Questionnaire: Please see the [facility] health questionnaire, which the patient completed and reviewed with me in detail. Review of Electronic Chart: Today I have also reviewed available medical information in the patient's medical record at [facility] ([facility]), including relevant provider notes, laboratory work, and imaging. Marta Hill has not been seen at a pain clinic in the past. Chief Complaint: No chief complaint on file. Pain history: Marta Hill is a 41 year old female who presents for initial evaluation of chief pain complaint of chronic pain. In December of 2020 they had a [...] to remove screws or ulnar nerve transposition. They have a long standing history of [...] their head. [facility] and diagnosed with occipital neuralgia. They've also have a long standing history of upper back and neck pain which is worsened with repeated activity. This has been going on for years and started worsening about a year ago. These symptoms have worsened since their left upper extremity injury. 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 If they're at the [employer] then their arm pain starts toflare-up. Onset: years for headaches and neck pain, [...] weakness, saddle anesthesia, unintentional weight loss, or fever/chills/sweats. Pain Treatments: 1. Medications: Current pain medications: -Gabapentin 400mg QID - helps a little -Lamictal -Buproprion 300mg daily -Seroquel -Duloxetine 120mg hs -Ibuprofen 400-600mg q6h prn Previous pain medications: -Tizanidine - fatigue -Voltaren and lidocaine gel - nh 2. Physical Therapy: - helped arm/elbow, no help for neck/face TENS unit: didn't help neck pain 3. Pain psychology: hasn't tried 4. Surgery: -radial head fixation 2020 5. Injections: -They had occipital nerve blocks years ago - helped for a few weeks -Botox injections years ago - made headaches worse - [facility] 6. Alternative Therapies: Chiropractic: hasn't tried Acupuncture: hasn't tried Diagnostic tests: CERVICAL SPINE THREE VIEWS 05/17/2021 8:12 AM ?? HISTORY: Neck pain. ?? COMPARISON: None. ?? IMPRESSION: There is some ltln-ma-yjtyzsxt cervical kyphosis centered on the C4-C5 level which could be positional or due to some muscle spasm. Posterior alignment is otherwise normal. Vertebral body heights are maintained. Soft tissues are unremarkable. ?? ONDINA ALICEA MD EMG/Testing: Results pending Labs: Lab Results Component Value Date WBC 6.3 08/30/2021 WBC 5.2 05/17/2021 Lab Results Component Value Date RBC 4.23 08/30/2021 RBC 4.10 05/17/2021 Lab Results Component Value Date HGB 13.2 08/30/2021 HGB 12.9 05/17/2021 Lab Results Component Value Date HCT 41.2 08/30/2021 HCT 38.7 05/17/2021 Lab Results Component Value Date MCV 97 08/30/2021 MCV 94 05/17/2021 Lab Results Component Value Date MCH 31.2 08/30/2021 MCH 31.5 05/17/2021 Lab Results Component Value Date MCHC 32.0 08/30/2021 MCHC 33.3 05/17/2021 Lab Results Component Value Date RDW 12.8 08/30/2021 RDW 12.3 05/17/2021 Lab Results Component Value Date PLT 302 08/30/2021 PLT 277 05/17/2021 Last Comprehensive Metabolic Panel: Sodium Date Value Ref Range Status 05/17/2021 139 133 - 144 mmol/L Final Potassium Date Value Ref Range Status 05/17/2021 3.6 3.4 - 5.3 mmol/L Final Chloride Date Value Ref Range Status 05/17/2021 107 94 - 109 mmol/L Final Carbon Dioxide Date Value Ref Range Status 05/17/2021 26 20 - 32 mmol/L Final Anion Gap Date Value Ref Range Status 05/17/2021 6 3 - 14 mmol/L Final Glucose Date Value Ref Range Status 05/17/2021 95 70 - 99 mg/dL Final Comment: Fasting specimen GLUCOSE BY METER POCT Date Value Ref Range Status 10/12/2021 92 70 - 99 mg/dL Final Urea Nitrogen Date Value Ref Range Status 05/17/2021 12 7 - 30 mg/dL Final Creatinine Date Value Ref Range Status 05/17/2021 0.77 0.52 - 1.04 mg/dL Final GFR Estimate Date Value Ref Range Status 05/17/2021 >90 >60 mL/min/[1.73_m2] Final Comment: Non GFR Calc Starting 10/30/2018, serum creatinine based estimated GFR (eGFR) will be calculated using the Chronic Kidney Disease Epidemiology Collaboration (CKD-EPI) equation. Calcium Date Value Ref Range Status 05/17/2021 8.8 8.5 - 10.1 mg/dL Final Bilirubin Total Date Value Ref Range Status 06/11/2021 0.4 0.2 - 1.3 mg/dL Final 05/17/2021 0.5 0.2 - 1.3 mg/dL Final Alkaline Phosphatase Date Value Ref Range Status 06/11/2021 91 40 - 150 U/L Final 05/17/2021 112 40 - 150 U/L Final ALT Date Value Ref Range Status 06/11/2021 35 0 - 50 U/L Final 05/17/2021 136 (H) 0 - 50 U/L Final AST Date Value Ref Range Status 06/11/2021 20 0 - 45 U/L Final 05/17/2021 47 (H) 0 - 45 U/L Final Past Medical History: Past Medical History: Diagnosis Date ??? Depressive disorder as teen and on ??? Hypertension 2002 only during ??? Sleep apnea Borderline 4.8 per testing. (<5) ??? Uncomplicated asthma not sure from being sick Past Surgical History: Past Surgical History: Procedure Laterality Date ??? BREAST SURGERY Breast Augmuntation ??? COSMETIC SURGERY not sure breast augmentation ??? ENT SURGERY teen years sinus for bloody noses ??? EXCISE MASS BACK N/A 10/12/2021 Procedure: EXCISION MULTIPLE LIPOMAS - bilateral legs, arms and trunk; Surgeon: Lesly Celaya MD; Location: [facility] OR ??? GENITOURINARY SURGERY Tubal ligation and ablasion ??? FINAL INSPECTOR MOTORCYLES SURGERY not sure tubal ligation and ablasion ? ? HEAD & NECK SURGERY Sinus ??? ORTHOPEDIC SURGERY 2020 radial head fracture 3 screws, left elbow ??? RADIOFREQUENCY ABLATION, UTERINE 2018 Medications: Current Outpatient Medications Medication Sig Dispense [...] Bedtime 2 tablets - 120mg total ??? ELDERBERRY PO Take 100 mg by mouth daily ??? gabapentin (NEURONTIN) 400 MG capsule Take 1 capsule (400 mg) by mouth 4 times daily 120 capsule2 ??? ibuprofen (ADVIL/MOTRIN) 200 MG tablet Take 400-600 mg by mouth every 6 hours as needed for pain ??? lamoTRIgine (LAMICTAL) 100 MG tablet Take by mouth daily And a 200mg ??? lamoTRIgine (LAMICTAL) 200 MG tablet Take by mouth daily ??? oxyCODONE (ROXICODONE) 5 MG tablet Take 1 tablet (5 mg) by mouth every 4 hours as needed for moderate to severe pain 6 tablet 0 ??? QUEtiapine (SEROQUEL) 100 MG tablet Take 1 tablet (100 mg) by mouth At Bedtime 30 tablet 2 ??? vitamin D3 (CHOLECALCIFEROL) 50 mcg (2000 units) tablet Take 1 tablet by mouth daily Allergies: Allergies Allergen Reactions ??? Amoxicillin Rash Social History: Home situation: lives in [place] Occupation/Schooling: works at [employer] Tobacco use: denies Drug use: denies Alcohol use: occasional Family history: Family History Problem Relation Age of Onset [...] Daughter ??? Asthma Son ??? Asthma Son Review of Systems: POSTIVE IN BOLD GENERAL: fever/chills, fatigue, general unwell feeling, weight gain/loss. HEAD/EYES: headache, dizziness, or vision changes. EARS/NOSE/THROAT: Nosebleeds, hearing loss, sinus infection, earache, tinnitus. IMMUNE: Allergies, cancer, immune deficiency, or infections. SKIN: Urticaria, rash, hives HEME/Lymphatic: anemia, easy bruising, easy bleeding. RESPIRATORY: cough, wheezing, or shortness of breath CARDIOVASCULAR/Circulation: Extremity edema, syncope, hypertension, tachycardia, or angina. GASTROINTESTINAL: abdominal pain, nausea/emesis, diarrhea, constipation, hematochezia, or melena. ENDOCRINE: Diabetes, steroid use, thyroid disease or osteoporosis. MUSCULOSKELETAL: neck pain, back pain, arthralgia, arthritis, or gout. GENITOURINARY: frequency, urgency, dysuria, difficulty voiding, hematuria or incontinence. NEUROLOGIC: weakness, numbness, paresthesias, seizure, tremor, stroke or memory loss. PSYCHIATRIC: depression, anxiety, stress, suicidal thoughts or mood swings. Physical Exam: Vitals: 11/10/21 0902 BP: 120/80 Pulse: 110 SpO2: 98% Exam: Constitutional: Well developed, well nourished, appears stated age. HEENT: Head atraumatic, normocephalic. Eyes without conjunctival injection or jaundice. Oropharynx clear. Skin: No rash, lesions, or petechiae of exposed skin. Well healed surgical incisions noted in the low back, upper extremities. Extremities: Peripheral pulses intact. No clubbing, cyanosis, or edema. Psychiatric/mental status: Alert, without lethargy or stupor. Speech fluent. Appropriate affect. Mood normal. Able to follow commands without difficulty. Musculoskeletal exam: Gait/Station/Posture: Gait is antalgic. Reduced stride and arm swing. Cervical spine: Range of motion within normal limits Myofascial tenderness: bilateral cervical paraspinals. Trigger point in the bilateral trapezius, levator and rhomboid. No focal spinous process tenderness. Spurling's negative bilaterally. Lumbar spine: Range of motion within normal limits Focal tenderness: No SI joint, gluteal, piriformis, GT, or IT tenderness Shoulder exam: No shoulder girdle wasting or scapular dyskinesis.Shoulder range of motion within normal limits. Neurologic exam: CN: Cranial nerves 2-12 are grossly intact Motor Strength: 5/5 symmetric UE and LE strength Reflexes: Biceps C5: R: 3/4 L: 3/4 Brachioradialis C6: R: 3/4 L: 3/4 Triceps C7: R: 3/4 L: 3/4 Patella L4: R: 3/4 L: 3/4 Achilles S1: R: 3/4 L: 3/4 Sensory: (upper and lower extremities): Light touch: reduced in the left hand compared to the right BILLING TIME DOCUMENTATION: The total TIME spent on this patient on the date of the encounter/appointment was 65 minutes. TOTAL TIME includes: Time spent preparing to see the patient (reviewing records and tests) Time spent face to face (or over the phone) with the patient Time spent ordering tests, medications, procedures and referrals Time spent Referring and communicating with other healthcare professionals Time spent documenting clinical information in [facility] Lucasdra Saurav Anaya [facility] Pain Management NG MACHINE OPERATOR HELPER documented in this encounter Nursing Notes Viridiana Juarez MA - 11/10/2021 9:00 AM CST PEG Score 11/10/2021 PEG Total Score 7 ISMA Bañuelos [facility] NG MACHINE OPERATOR HELPER documented in this encounter Plan of Treatment Upcoming Encounters Date Type Specialty Care Team Description 09/26/2022 Appointment Speech Therapy Obdulio Barrera MD [address] [facility] [address] [place] [address] Anabel Chew, [place] [id number] [facility] [address] [place], [place] [address] 09/27/2022 Therapy Visit Physical Therapy Luisana Watkins, PT [address] [phone] 09/29/2022 Virtual Visit Pain & Palliative Marilia Deluna, [facility] PhD [address] [facility] [place] [address] 09/30/2022 Office Visit Family Practice Aydee Burtonlotte, COMPOSING ROOM SUPERVISOR DIAL LATHE OPERATOR [address] [place], [place] [phone] 10/03/2022 Therapy Visit Physical Therapy Una Reardon, PT [address] [place] [phone] 10/10/2022 Hospital Encounter Surgery Lesly Celaya MD [address] [place], [place] [phone] 10/10/2022 Office Visit Surgery Lesly Celaya MD [address] [place], [place] [address] Ninoska Flowers, PA-C [address] [facility] [address] [place] [address] 10/10/2022 Surgery Surgery Lesly Celaya, EXCISION, MASSES - MD back, abdomen, [address] right lower [facility] [address] 10/11/2022 Virtual Visit Clari Su, [facility] [address] [facility] [address] [place], [place] [address] 10/14/2022 Appointment Speech Therapy Anabel Chew, SHEET [place] NAILER [facility] [address] [facility] [address] [place], [place] [address] 10/21/2022 Office Visit Pulmonology Obdulio Barrera MD [address] [facility] [address] [place] [address] 10/25/2022 PRE VISIT ENT Charo Burton MD Previsit [address] [place] [address] 10/25/2022 Office Visit Charo Carter MD [address] [place] [address] 10/25/2022 Office Visit ENT Provider, Jeannette Ent Dysphonia [employer] 10/28/2022 Appointment Speech Therapy Anabel Chew, SHEET ROCK NAILER [address] [address] 11/17/2022 Appointment Speech Therapy Anabel Chew, SHEET ROCK NAILER [address] [address] 12/23/2022 Office Visit Neurology Colby Yeung MD [address] [place] [address] Scheduled Procedures Name Priority Associated Diagnoses Date/Time EXCISION, MASS, TORSO Lipoma of skin and subcuta neous 10/10/2022 7:30 AM BORING MACHINE OPERATOR HELPER tissue Scheduled Referrals Name Type Priority Associated Diagnoses Order S chedule PAIN PHD Referral Routine: Next Bilateral occipital Expecte d: EVAL/TREAT/FOLLOW available opening neuralgia 11/10/2021 UP Upper back pain (Approximate), Chronic tension-type Expires : headache, not 11/10/2022 intractable PAIN INJECTION Referral Routine: Next Bilateral occipital Expec mike: EVAL/TREAT/FOLLOW available opening neuralgia 11/10/2021 UP Upper back pain (Approximate ), Expires: 11/10/2022 documented as of this encounter Visit Diagnoses [...] documented as of this encounter Care Teams Polyethylene Combiner Relationship Specialty Start Date End Date Aydee Burton, PCP - General Nurse Practitioner - 05/17/21 COMPOSING ROOM SUPERVISOR DIAL LATHE OPERATOR Family [address] [place] [address] Aydee Burton, Assigned PCP 04/28/21 COMPOSING ROOM SUPERVISOR DIAL LATHE OPERATOR [address] [place] [address] Louisa Hood, Assigned Neuroscience 07/11/21 COMPOSING ROOM SUPERVISOR DIAL LATHE OPERATOR Provider [address] [place] [phone] Se Levy, Lead Cableman 08/05/21 05/12/22 Clari Francois Pharmacist Pharmacist 08/06/21 [facility]/07/[facility] [address] [place], [place] [phone] [place], Assigned Sleep 08/01/21 Angel Turcios, Provider [address] [place], [place] [phone] Lesly Celaya MD Assigned Surgical 09/05/21 [address] Provider [place], [place] [phone] Tawana Patel MA [facility] 09/30/21 Worker Ramses Mcpherson Assigned OBGYN 11/07/21 MD Onesimo Provider [address] [place], [place] [phone] Mago Swift, [facility] Lead Cableman Food And Beverage Controller - 08/05/21 Clinical documented as of this encounter
--- OUTSIDE RECORDS SUMMARY | 2022-09-21 04:14 | XMS_ITS | Encounter Summary ---
:1980 Author Organization [place] Address [address] [place] [address] Care Team Providers Name Role Phone Aydee Burton APRN HEALTH INFORMATION TECH Primary Care Provider Aydee Burton APRN HEALTH INFORMATION TECH Unavailable [phone] Louisa Hood COFFEE BAR ATTENDANT HEALTH INFORMATION TECH Unavailable [phone] Se Levy DIRECTOR OF CONSERVATION Unavailable Unavailable Clari Ruiz [facility] Unavailable [phone] Angel Hannah MD Unavailable Lesly Celaya MD Unavailable Tawana Patel MA Unavailable Unavailable Ramses Mcpherson MD Unavailable [phone] Mago Swift PEST CONTROL OPERATOR Unavailable Reason for Referral CV Cardio consult (Routine: Next available opening) - Referral NOT Required Specialty Diagnoses / Procedures Referred By Contact Refer red To Contact Cardiovascular Disease Diagnoses Shortness of breath Feeling of chest tightness Aydee Burton [facility] ELADIO Mendez HEALTH INFORMATION TECH [address] [place] [address] [place] [address] [place] [address] [place] [address] Phone: Fax: Referral ID Status Reason Start Date Expiration Date Visits V isits Requested Authorized [id number] Referral NOT 11/10/2021 11/10/2022 1 1 Required MS SERVICE ADJUSTOR Encounter Details Date Type Department Care Team Description 11/10/2021 Orders Only [facility] Aydee Burton Shortness of breath (Primary Dx); [facility] [place] ELADIO Mendez CNP Feeling of chest tightness [address] 5 [address] [phone] Social History Tobacco Use Types Packs/Day Years [...] How often do you attend adventism or caodaism services? Never 08/05/2021 Do you [...] at Date Recorded Female 11/09/2021 7:53 PM CLAIMS SERVICE ADJUSTOR COVID-19 Exposure Response Date Recorded In the last month, have you been in contact with No / Unsure 11/04/2021 11:14 AM CLAIMS SERVICE ADJUSTOR someone who was confirmed or suspected to have Coronavirus / COVID-19? documented as of this encounter Plan of Treatment Upcoming Encounters Date Type Specialty Care Team Description 09/26/2022 Appointment Speech Therapy Obdulio Barrera MD 420 [facility] 276 [place] [address] Anabel Chew, SENIOR HR MANAGER [address] [place], [place] [address] 09/27/2022 Therapy Visit Physical Therapy Luisana Watkins, PT 2[address] [place] [address] 09/29/2022 Virtual Visit Pain & Palliative Marilia Deluna, [facility] PhD [address] [place], [place] [address] 09/30/2022 Office Visit Family Practice Aydee Burton, COFFEE BAR ATTENDANT HEALTH INFORMATION TECH 4151 [place], [place] [phone] 10/03/2022 Therapy Visit Physical Therapy Una Reardon, PT 2155 [place] [phone] 10/10/2022 Hospital Encounter Surgery Lesly Celaya MD [address] [place], [place] [phone] 10/10/2022 Office Visit Surgery Lesly Celaya MD [address] [place], [place] [phone] Ninoska Flowers, FLORES-C [address] [place], [place] [phone] 10/10/2022 Surgery Surgery Lesly Celaya, EXCISION, MASSES - MD back, abdomen, [address] extremity [place], [place] [phone] 10/11/2022 Virtual Visit Pharm Clari Stoll, [facility] [address] [id number] [place], [place] [address] 10/14/2022 Appointment Speech Therapy Anabel Chew, SENIOR HR MANAGER [address] [address] 10/21/2022 Office Visit Pulmonology Obdulio Barrera MD 420 [facility] 276 [place], [place] [address] 10/25/2022 PRE VISIT ENT Charo Burton MD Previsit [address] [place] [address] 10/25/2022 Office Visit Charo Carter MD [address] [place] [address] 10/25/2022 Office Visit ENT Provider, Jeannette Ent Dysphonia Cattle Inspector 10/28/2022 Appointment Speech Therapy Anabel Chew, SENIOR HR MANAGER [address] [phone] 11/17/2022 Appointment Speech Therapy Anabel Chew, SENIOR HR MANAGER [address] [address] 12/23/2022 Office Visit Neurology Colby Yeung MD [address] [address] Scheduled Orders Name Type Priority Associated Diagnoses Order S chedule Pulmonary Function Test PFT Routine Shortnes s of breath Expected: 11/17/2021 Feeling of chest (Approximat e), tightness Expires: 2021 Scheduled Procedures Name Priority Associated Diagnoses Date/Time EXCISION, MASS, TORSO Lipoma of skin and subcuta neous 10/10/2022 7:30 AM CLAIMS SERVICE ADJUSTOR tissue Scheduled Referrals Name Type Priority Associated Diagnoses Order S chedule Adult Cardiology Referral Routine: Next Shortness of br eath Expected: Eval Referral available opening Feeling of chest 11/10 tightness (Approximate), Expires: 11/10/2022 documented as of this encounter Results General PFT Lab (Please always keep checked) (11/16/2021 3:32 PM CLAIMS SERVICE ADJUSTOR) P athologist Signature FVC-Pred 3.93 L [facility]FT FVC-Pre 3.85 L [facility]FT FVC-%Pred-Pre 97 % [facility] FEV1-Pre 3.29 L [facility]FT FEV1-%Pred-Pre 102 % [facility] PFT [id number] 82 % [facility] PFT [id number] 86 % [facility] PFT FEFMax-Pred 7.25 L/sec [facility] PFT FEFMax-Pre 8.70 L/sec [facility] PFT FEFMax-%Pred-Pr 119 % [facility] PFT e [id number] 3.35 L/sec [facility]FT [id number] 3.84 L/sec [facility] PFT [id number]-%Pred-P 114 % [facility] PFT re ExpTime-Pre 7.82 sec [facility] PFT FIFMax-Pre 5.59 L/sec [facility] PFT VC-Pred 3.93 L [facility] PFT VC-Pre 3.95 L [facility] PFT VC-%Pred-Pre 100 % [facility] PFT IC-Pred 3.11 L [facility]FT IC-Pre 2.50 L [facility] PFT IC-%Pred-Pre 80 % [facility] PFT ERV-Pred 0.83 L [facility]FT ERV-Pre 1.45 L [facility]FT ERV-%Pred-Pre 175 % [facility] PFT [id number] 84 % [facility] PFT [id number] 85 % [facility] PFT FRCPleth-Pred 2.78 L [...] [facility] PFT VA-%Pred-Pre 89 % [facility] PFT [id number] 82 % [facility] PFT [id number] 83 % [facility] PFT Specimen (Source) Anatomical Collection Method Collection Time Re ceived Time Location / / Volume Laterality 11/16/2021 3:32 PM CLAIMS SERVICE ADJUSTOR Narrative [facility]FT - 11/23/2021 5:06 PM CLAIMS SERVICE ADJUSTOR The FVC, FEV1, FEV1/FVC ratio and PSW17-75% are within normal limits. ??The inspiratory and expiratory flow rates are within normal limits. ??Lung volumes are within normal limits. ??The diffusing capac ity is normal. ??However, the diffusing capacity was not corrected for the patient's hemoglobin. IMPRESSION: Normal spirometry, diffusing capacity an d lung volumes. ?This interpretation has been electro nically signed: ??RICH COLE 11/23/2021 ??05:01:17 PM? Aydee Burton COFFEE BAR ATTENDANT HEALTH INFORMATION TECH PFT ORDERABLES Performing Organization Address City/State/ZIP Code Phon e Number [facility] P[facility] documented in this encounter Visit Diagnoses Diagnosis Shortness of breath - Primary Feeling of chest tightness Other chest pain Shortness of breath Feeling of chest tightness Other chest pain Lipoma of skin and subcutaneous tissue Lipoma of other skin and subcutaneous ti ssue documented in this encounter Additional Health Concerns Assessment Noted Time PHQ-9 Depression Total Score: 06/28/2021 7:03 AM CD T documented as of this encounter Care Teams Outreach Assistant Relationship Specialty Start Date End Date Aydee Burton, PCP - General Nurse Practitioner - 05/17/21 COFFEE BAR ATTENDANT HEALTH INFORMATION TECH Family [address] [place] [phone] Aydee Burton, Assigned PCP 04/28/21 COFFEE BAR ATTENDANT HEALTH INFORMATION TECH [address] [place] [address] [phone] Louisa Hood, Assigned Neuroscience 07/11/21 COFFEE BAR ATTENDANT HEALTH INFORMATION TECH Provider [address] [place], [place] [phone] Se Levy, Lead Credit Verifier 08/05/21 05/12/22 Clari Francois Pharmacist Pharmacist 08/06/21 [facility]/07/[facility] [address] [place], [place] [phone] [place], Assigned Sleep 08/01/21 Angel Turcios, Provider [address] [place] [address] Lesly Celaya MD Assigned Surgical 09/05/21 [address] Provider [place], [place] [phone] Tawana Patel MA [facility] 09/30/21 Worker Ramses Mcpherson Assigned OBGYN 11/07/21 MD [place] [address] Mago Swift [facility] Lead Credit Verifier Shop Tailor Apprentice - 08/05/21 Clinical documented as of this encounter
--- OUTSIDE RECORDS SUMMARY | 2022-09-21 04:14 | XMS_ITS | Encounter Summary ---
:1980 Author Organization [place] Address [address] [place] [address] Care Team Providers Name Role Phone Aydee Nam APRN ADJUNCT PHYSICAL EDUCATION INSTRUCTOR Primary Care Provider Aydee Nam APRN ADJUNCT PHYSICAL EDUCATION INSTRUCTOR Unavailable [phone] Louisa Hood WAREHOUSE ADMINISTRATIVE ASSISTANT ADJUNCT PHYSICAL EDUCATION INSTRUCTOR Unavailable [phone] Se Levy CENTER LINE CUTTER OPERATOR Unavailable Unavailable Clari Ruiz [facility] Unavailable [phone] Angel Hannah MD Unavailable Lesly Celaya MD Unavailable Elizabeth Mcintyre [facility] Unavailable Tawana Patel MA Unavailable Unavailable Mago Swift YARN WINDER Unavailable Reason for Referral CV Testing (Routine) - Closed Specialty Diagnoses / Procedures Referred By Contact Refer red To Contact Diagnoses Shortness of breath Feeling of chest tightness Aydee Nam APRN Procedures Exercise Stress Test - Adult ADJUNCT PHYSICAL EDUCATION INSTRUCTOR [address] [place] [address] Referral ID Status Reason Start Date Expiration Date Visits Requ ested Visits Authorized [id number] Closed 10/05/2021 10/05/2022 1 1 NSE ISSUER Reason for Visit CV Testing (Routine) - Closed Specialty Diagnoses / Procedures Referred By Contact Refer red To Contact Diagnoses Shortness of breath Feeling of chest tightness Aydee Nam APRN Procedures Exercise Stress Test - Adult ADJUNCT PHYSICAL EDUCATION INSTRUCTOR [address] [place] [address] Referral ID Status Reason Start Date Expiration Date Visits Requ ested Visits Authorized [id number] Closed 10/05/2021 10/05/2022 1 1 Encounter Details Date Type Department Care Team Description 11/04/2021 Hospital Encounter [facility] Aydee Nam tness of breath; [facility] ELADIO Mendez Feeling o f chest tightness [facility] ADJUNCT PHYSICAL EDUCATION INSTRUCTOR [address] [facility] [address] [place], [place] [phone] [id number] Social History Tobacco Use Types Packs/Day Years [...] How often do you attend yazdanism or church services? Never 08/05/2021 Do you belong to [...] at Date Recorded Female 11/09/2021 7:53 PM LICENSE ISSUER COVID-19 Exposure Response Date Recorded In the last month, have you been in contact with No / Unsure 11/04/2021 11:14 AM LICENSE ISSUER someone who was confirmed or suspected to [...] capsuleIndications: PTSD times daily (post-traumatic stress disorder) ibuprofen (ADVIL/MOTRIN) Take 400-600 mg by 0 12/10/2021 200 MG tablet mouth every 6 hours as needed for pain lamoTRIgine (LAMICTAL) Take by mouth daily 0 09/1301/14/2022 100 MG tablet And a 200mg Total dose in 300mg daily lamoTRIgine (LAMICTAL) Take by mouth daily 0 09/1301/14/2022 200 MG tablet With a 100 mg to total 300mg daily oxyCODONE (ROXICODONE) 5 Take 1 tablet (5 6 tablet 0 10/1212/10/2021 MG tabletIndications: mg) by mouth every Lipoma of torso 4 hours as needed for moderate to severe pain QUEtiapine (SEROQUEL) Take 1 tablet (100 30 tablet 2 202001/14/2022 100 MG mg) by mouth At tabletIndications: 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 She has a normal echo. She did however have chest pain during her stress test but this had NO evidence of strain on her heart during this. Since continuing chest discomfort I would like her to see cardiology just to ensure we are not missing something. I would have her take emlz-rwq-xjhyudd omeprazole 20 mg daily for 2 weeks to see if she has improvement of symptoms. I have also ordered PFTs testing due to shortness of breath and chest tightness. I have sent her cardiology and PFT referral. Right ventricular systolic pressure could not be approximated due to inadequate tricuspid regurgitation. IVC diameter <2.1 cm collapsing >50% with sniff suggests a normal RA pressure of 3 mmHg. Normal transthoracic echocardiogram. Pt developed 7/10 chest pain during exercise. No arrhythmia noted. There were no ST segment changes observed with stress. This test indicates a low probability of severe occlusive coronary artery disease. MARINO Spivey NSE ISSUER documented in this encounter Plan of Treatment Upcoming Encounters Date Type Specialty Care Team Description 09/26/2022 Appointment Speech Therapy Obdulio Barrera MD [address] [facility] 276 [place], [place] [phone] Anabel Chew, [address] [phone] [facility] 396 [place], [place] [address] 09/27/2022 Therapy Visit Physical Therapy Luisana Watkins, PT 2[address] [place] [address] 09/29/2022 Virtual Visit Pain & Palliative Marilia Deluna, [facility] PhD [address] [place], [place] [address] 09/30/2022 Office Visit Family Practice Aydee Nam, WAREHOUSE ADMINISTRATIVE ASSISTANT ADJUNCT PHYSICAL EDUCATION INSTRUCTOR 4[address] [place], [place] [address] 10/03/2022 Therapy Visit Physical Therapy Una Reardon, PT [address] [place] [address] 10/10/2022 Hospital Encounter Surgery Lesly Celaya MD [address] [place] [address] 10/10/2022 Office Visit Surgery Lesly Celaya MD [address] [place] [address] Ninoska Flowers PA-Ynes [address] [place] [address] 10/10/2022 Surgery Surgery Lesly Celaya, EXCISION, MASSES - MD back, abdomen, [address] [place] [address] 10/11/2022 Virtual Visit Clari Su, [facility] [address] [phone] [place] [address] 10/14/2022 Appointment Speech Therapy Anabel Chew, PROFESSIONAL ARCHITECT [facility] [address] [facility] 396 [place] [address] 10/21/2022 Office Visit Pulmonology Obdulio Barrera MD 420 [facility] 276 [place], [place] [address] 10/25/2022 PRE VISIT ENT Charo Burton MD Previsit [address] [place], [place] [address] 10/25/2022 Office Visit ENT Charo Burton MD [address] [place], [place] [address] 10/25/2022 Office Visit ENT Provider, Jeannette Ent Dysphonia Electron Tube Assembler 10/28/2022 Appointment Speech Therapy Anabel Chew, PROFESSIONAL ARCHITECT [address] [place] [address] 11/17/2022 Appointment Speech Therapy Anabel Chew, PROFESSIONAL ARCHITECT [address] [place] [address] 12/23/2022 Office Visit Neurology Colby Yeung MD [address] [id number] Scheduled Procedures Name Priority Associated Diagnoses Date/Time EXCISION, MASS, TORSO Lipoma of skin and subcuta neous 10/10/2022 7:30 AM LICENSE ISSUER tissue documented as of this encounter Procedures Procedure Name Priority Date/Time Associated Diagnosis Comme nts STRESS TEST - ADULT Routine 11/04/2021 8:30 AM Shortness of breath Results for this LICENSE ISSUER Feeling of chest procedure a re in tightness the results section. documented in this encounter Results Exercise Stress Test - Adult (11/04/2021 8:30 AM LICENSE ISSUER) Anatomical Region Laterality Modality Other Specimen (Source) Anatomical Collection Method Collection Time Re ceived Time Location / / Volume Laterality 11/04/2021 8:30 AM LICENSE ISSUER Narrative 11/04/2021 11:51 AM [facility] [id number] [id number]^CYRIL^AYDEE^LILIANA [facility] [address] [facility] [place] [address] Name: MARTA HAWKINS : 1980 Study Date: 11/04/2021 08:30 AM Age: 41 yrs Gender: Female Patient Location: [facility] Reason For Study: Shortness of breath, F eeling of chest tightness History: Chest Pain,Shortness of Breath Ordering Physician: AYDEE NAM Referring Physician: AYDEE NAM TE Performed By: Tawana Saldana BSA: 2.0 m2 Height: 67 in Weight: 205 lb HR: 97 BP: 102/72 mmHg Procedure Treadmill stress test. Interpretation Summary Pt developed 7/10 chest pain during exer cise. No arrhythmia noted. There were no ST segment changes observe d with stress. This test indicates a low probability of severe occlusive coronary artery disease. Baseline The patient is in normal sinus rhythm. Resting ECG is normal. Stress The patient exercised 7:12. RPP 07925. There was a normal BP response to exerci se. Exercise was stopped due to dizziness. Target Heart Rate was achieved. The Nelson treadmill score was intermediat e risk ( -11< Nelson score <5). No arrhythmia noted. Pt developed 7/10 chest pain during exer cise. There were no ST segment changes observe d with stress. Stress Results ? Protocol: ??Bernardo ?Maximum Predicted HR: ?? 181 bpm ? Target HR: 154 bpm ?% Maximum Predicted HR: 93 % ?Heart ??Stage ??Duration ??Rate ?? BP ?Comment ?(mm:ss) (bpm) Stage 1 ?? 3:00 ?148 ??120/70Chest Tightness: 4/10 Stage 2 ?? 3:00 ?164 ??134/58Chest Tightness: 4/10 ?Chest Tightness/pain: 7/10; Pt. is dizzy. Nelson Stage 3 ?? 1:12 ?169 ? / ??Mariza dmill Score: 3 (Moderate Risk) RecoveryR ??20:00 ?? 110 ??118/82Chest t ightness: 2/10; FAC: Below Average ? Stress Duration: ?? 7:12 mm:ss * ?Recovery Time: 20:00 mm:ss ? Maximum Stress HR: 169 bpm * ? METS: ?9 Report approved by: Arvin Amezcua MD on 11/04/2021 11:51 AM Procedure Note Arvin Amezcua MD - 11/04/2021Form atting of this note might be different from the original. [id number]^CYRIL^AYDEE^LILIANA [facility] [address] [place] [address] Name: MARTA HAWKINS : 1980 Study Date: 11/04/2021 08:30 AM Age: 41 yrs Gender: Female Patient Location: [facility] Reason For Study: Shortness of breath, F eeling of chest tightness History: Chest Pain,Shortness of Breath Ordering Physician: AYDEE NAM Referring Physician: AYDEE NAM Performed By: Tawana Saldana BSA: 2.0 m2 Height: 67 in Weight: 205 lb HR: 97 BP: 102/72 mmHg Procedure Treadmill stress test. Interpretation Summary Pt developed 7/10 chest pain during exer cise. No arrhythmia noted. There were no ST segment changes observe d with stress. This test indicates a low probability of severe occlusive coronary artery disease. Baseline The patient is in normal sinus rhythm. Resting ECG is normal. Stress The patient exercised 7:12. RPP 74682. There was a normal BP response to exerci se. Exercise was stopped due to dizziness. Target Heart Rate was achieved. The Nelson treadmill score was intermediat e risk ( -11< Nelson score <5). No arrhythmia noted. Pt developed 7/10 chest pain during exer cise. There were no ST segment changes observe d with stress. Stress Results Protocol: Bernardo Maximum Predicted HR: 1 81 bpm Target HR: 154 bpm % Maximum Predicted HR: 93 % Heart Stage Duration Rate BP Comment (mm:ss) (bpm) Stage 1 3:00 148 120/70Chest Tightness: 4/10 Stage 2 3:00 164 134/58Chest Tightness: 4/10 Chest Tightness/pain: 7/10; Pt. is dizz y. Nelson Stage 3 1:12 169 / Treadmill Score: 3 ( Moderate Risk) RecoveryR 20:00 110 118/82Chest tightnes s: 2/10; FAC: Below Average Stress Duration: 7:12 mm:ss * Recovery Time: 20:00 mm:ss Maximum Stress HR: 169 bpm * METS: 9 Report approved by: Arvin Amezcua MD on 11/04/2021 11:51 AM Aydee Nam WAREHOUSE ADMINISTRATIVE ASSISTANT ADJUNCT PHYSICAL EDUCATION INSTRUCTOR [facility] PRASHANTH CORDERO documented in this encounter Visit Diagnoses Diagnosis Shortness of breath Feeling of chest tightness Other chest pain Lipoma of skin and subcutaneous tissue Lipoma of other skin and subcutaneous ti ssue documented in this encounter Additional Health Concerns Assessment Noted Time PHQ-9 Depression Total Score: 06/28/2021 7:03 AM CD T documented as of this encounter Care Teams Wire Border Assembler Relationship Specialty Start Date End Date Aydee Nam, PCP - General Nurse Practitioner - 05/17/21 WAREHOUSE ADMINISTRATIVE ASSISTANT ADJUNCT PHYSICAL EDUCATION INSTRUCTOR Family [address] [place] [address] [phone] Aydee Nam, Assigned PCP 04/28/21 WAREHOUSE ADMINISTRATIVE ASSISTANT ADJUNCT PHYSICAL EDUCATION INSTRUCTOR [address] [place] [address] [phone] Louisa Hood, Assigned Neuroscience 07/11/21 WAREHOUSE ADMINISTRATIVE ASSISTANT ADJUNCT PHYSICAL EDUCATION INSTRUCTOR Provider [address] [place] [address] [phone] Se Levy, Lead Technician [employer] Equipment 08/05/21 05/12/22 Clari Francois Pharmacist Pharmacist 08/06/21 06/07/[facility] [address] [place], [place] [phone] [place], Assigned Sleep 08/01/21 Angel Turcios, Provider [address] [place] [address] Lesly Celaya MD Assigned Surgical 09/05/21 [address] Provider [place], [place] [phone] Elizabeth Mcintyre CNM Assigned OBGYN 09/05/21 11/06/21 [address] [place] [address] Tawana Patel MA [facility] 09/30/21 Worker Mago Swift LICSW Lead Technician Submarine Cable Equipment Channel Executive - 08/05/21 Clinical documented as of this encounter
--- OUTSIDE RECORDS SUMMARY | 2022-09-21 04:14 | XMS_ITS | Encounter Summary ---
:1980 Author Organization [facility] Address [address] [place] [address] Care Team Providers Name Role Phone Aydee Burton SURVEILLANCE SYSTEMS ENGINEER DIE SETTER Primary Care Provider Aydee Burton SURVEILLANCE SYSTEMS ENGINEER DIE SETTER Unavailable [phone] Louisa Hood SURVEILLANCE SYSTEMS ENGINEER DIE SETTER Unavailable [phone] Se Levy CONCRETE VIBRATOR OPERATOR Unavailable Unavailable Clari Ruiz [facility] Unavailable Angel Hannah MD Unavailable Lesly Celaya MD Unavailable Tawana Patel MA Unavailable Unavailable Ramses Mcpherson MD Unavailable [phone] Mago Swift FIREPROOF DOOR ASSEMBLER Unavailable Encounter Details Date Type Department Care Team Description 11/16/2021 [facility] Romel Shaw [address] [address] [address] [place] [address] [address] [place] [address] [phone] Social History Tobacco Use Types Packs/Day Years [...] How often do you attend taoist or rastafari services? 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/2021 7:53 PM ANIMAL CRUELTY INVESTIGATION SUPERVISOR COVID-19 Exposure Response Date Recorded In the last month, have you been in contact with No / Unsure 11/10/2021 8:59 AM ANIMAL CRUELTY INVESTIGATION SUPERVISOR someone who was confirmed or suspected to have Coronavirus / COVID-19? documented as of this encounter Progress Notes Lucas Anaya MD - 11/16/2021 9:44 AM CST Reviewed records from [facility] and [facility] of neurology. They are seen by Dr. Linder at [facility] and may undergo a surgery to remove some hardware from their rightradius. They had an EMG at [facility] of neurology which is not concerning for ulnar neuropathy but does show evidence of mild CTS. No change to current plan of care. DO Terri Zheng [facility] Pain Management AL CRUELTY INVESTIGATION SUPERVISOR documented in this encounter Plan of Treatment Upcoming Encounters Date Type Specialty Care Team Description 09/26/2022 Appointment Speech Therapy Obdulio Barrera MD [address] [facility] 276 [place], [place] [phone] Anabel Chew, BUNDLE WRAPPER [facility] 516 [facility] 396 [place], [place] [address] 09/27/2022 Therapy Visit Physical Therapy Luisana Watkins, PT [address] [place] [address] 09/29/2022 Virtual Visit Pain & Palliative Marilia Deluna, [facility] PhD [address] [place] [address] 09/30/2022 Office Visit Family Practice Aydee Burton, SURVEILLANCE SYSTEMS ENGINEER DIE SETTER [address] [place], [place] [phone] 10/03/2022 Therapy Visit Physical Therapy Una Reardon, PT [address] [place] [phone] 10/10/2022 Hospital Encounter Surgery Lesly Celaya MD [address] [facility] [place] [address] 10/10/2022 Office Visit Surgery Lesly Celaya MD [address] [place], [place] [phone] Ninoska Flowers PA-C [address] [address] 10/10/2022 Surgery Surgery Lesly Celaya, EXCISION, MASSES - MD back, abdomen, [address] [place] [address] 10/11/2022 Virtual Visit Pharm Clari Stoll, [facility] [address] [address] 10/14/2022 Appointment Speech Therapy Anabel Chew, BUNDLE WRAPPER [address] [address] 10/21/2022 Office Visit Pulmonology Obdulio Barrera MD [address] [address] 10/25/2022 PRE VISIT ENT Charo Burton MD Previsit [address] [place] [id number] 10/25/2022 Office Visit ENT Charo Burton MD [address] [place], [place] [address] 10/25/2022 Office Visit ENT Provider, Ent Dysphonia Earth Science Technician 10/28/2022 Appointment Speech Therapy Anabel Chew SLP [address] [address] 11/17/2022 Appointment Speech Therapy Anabel Chew BUNDLE WRAPPER [address] [address] 12/23/2022 Office Visit Neurology Colby Yeung MD [address] [place] [address] Scheduled Procedures Name Priority Associated Diagnoses Date/Time EXCISION, MASS, TORSO Lipoma of skin and subcuta neous 10/10/2022 7:30 AM ANIMAL CRUELTY INVESTIGATION SUPERVISOR tissue documented as of this encounter Visit Diagnoses Not on filedocumented in this encounter Additional Health Concerns Assessment Noted Time PHQ-9 Depression Total Score: 06/28/2021 7:03 AM CD T documented as of this encounter Care Teams Blanket Binder Relationship Specialty Start Date End Date Aydee Burton, PCP - General Nurse Practitioner - 05/17/21 SURVEILLANCE SYSTEMS ENGINEER DIE SETTER Family [address] [place] [address] Aydee Burton, Assigned PCP 04/28/21 SURVEILLANCE SYSTEMS ENGINEER DIE SETTER [address] [place], [place] [phone] Louisa Hood, Assigned Neuroscience 07/11/21 SURVEILLANCE SYSTEMS ENGINEER DIE SETTER Provider [address] [place] [address] Se Levy, Lead Policy Service Coordinator 08/05/21 05/12/22 CONCRETE VIBRATOR OPERATORClari Ordonez Pharmacist Pharmacist 08/06/21 06/07/22 Jocelyn [facility] [address] [place], [place] [phone] [place], Assigned Sleep 08/01/21 Angel Turcios, Provider [address] [place] [address] Lesly Celaya MD Assigned Surgical 09/05/21 [address] Provider [place], [place] [phone] Tawana Patel MA [facility] 09/30/21 Worker Ramses Mcpherson Assigned OBGYN 11/07/21 MD Onesimo Provider [address] [place] [address] Mago Swift, [facility] Lead Policy Service Coordinator Surveyor'S Assistant - 08/05/21 Clinical documented as of this encounter
--- OUTSIDE RECORDS SUMMARY | 2022-09-21 04:14 | XMS_ITS | Encounter Summary ---
:1980 Author Organization [facility] Address [address] [place] [address] Care Team Providers Name Role Phone Aydee Nam INSULATION WORKER APPRENTICE MANAGER OF ALLIED HEALTH SERVICES Primary Care Provider [phone] Aydee Nam INSULATION WORKER APPRENTICE MANAGER OF ALLIED HEALTH SERVICES Unavailable [phone] Louisa Hood INSULATION WORKER APPRENTICE MANAGER OF ALLIED HEALTH SERVICES Unavailable [phone] Se Levy LANDFILL G[employer] PLANT FIELD TECHNICIAN Unavailable Unavailable Clari Ruiz [facility] Unavailable [phone] Angel Hannah MD Unavailable Lesly Celaya MD Unavailable Elizabeth Mcintyre CN Unavailable Tawana Patel MA Unavailable Unavailable Mago Swift ECO INDUSTRIAL DEVELOPMENT CONSULTANT Unavailable Reason for Visit Reason Comments Abnormal Uterine Bleeding Encounter Details Date Type Department Care Team Description 11/04/2021 Office Visit [facility] Ramses Mcpherson rrhagia with regular cycle (Primary Dx); Clinic Sri Echols MD Dysmenorrhea; [address] Dyspareunia in female; [place] [address] S/P endometrial ablation [address] [place] [address] [phone] Social History Tobacco Use Types Packs/Day Years [...] How often do you attend religion or christian services? Never 08/05/2021 Do you [...] at Date Recorded Female 11/09/2021 7:53 PM BUCKET WASH OPERATOR COVID-19 Exposure Response Date Recorded In the last month, have you been in contact with No / Unsure 11/04/2021 11:14 AM BUCKET WASH OPERATOR someone who was confirmed or suspected to have Coronavirus / COVID-19? documented as of this encounter Last Filed Vital Signs Vital Sign Reading Time Taken Comments Blood Pressure 102/66 11/04/2021 11:25 AM BUCKET WASH OPERATOR Pulse - - Temperature - - Respiratory Rate - - Oxygen Saturation - - Inhaled Oxygen Concentration - - Weight 91.4 kg (201 lb 6.4 oz) 11/04/2021 11:25 AM BUCKET WASH OPERATOR Height - - Body Mass Index 31.54 10/12/2021 11:16 AM BUCKET WASH OPERATOR documented in this encounter Progress Notes Ramses Mcpherson MD - 11/04/2021 11:15 AM CST SUBJECTIVE: Marta Hawkins is a 41 year old female, P6, who presents to clinic today for the following health issue(s): Patient presents with: Abnormal Uterine Bleeding HPI: 41-year-old para 6 status post tubal ligation and status post NovaSure endometrial ablation in June 2018 presents to discuss options of management for ongoing menorrhagia, dysmenorrhea, dyspareunia. Patient states her bleeding never stopped following the ablation but did decrease in amount. Unfortunately her cycles have now become very heavy as they were prior to the procedure with severe cramps and painful intercourse. Sound dated August 2021 was reviewed and shows an anatomically normal uterus save for one small fibroid. Patient's last menstrual period was 10/12/2021 (exact date).. Patient is sexually active, . Using tubal ligation for contraception. Problem list and histories reviewed & adjusted, as indicated. Additional history: as documented. Patient Active Problem List Diagnosis ??? PTSD (post-traumatic stress disorder) ??? Breast implant status ??? Bilateral occipital neuralgia ??? Hepatic steatosis ??? SHAMEKA (generalized anxiety disorder) ??? Severe episode of recurrent major depressive disorder, without psychotic features (H) Past Surgical History: Procedure Laterality Date ??? BREAST SURGERY Breast Augmuntation ??? COSMETIC SURGERY not sure breast augmentation ??? ENT SURGERY teen years sinus for bloody noses ??? EXCISE MASS BACK N/A 10/12/2021 Procedure: EXCISION MULTIPLE LIPOMAS - bilateral legs, arms and trunk; Surgeon: Lesly Celaya MD; Location: [facility] OR ??? GENITOURINARY SURGERY Tubal ligation and ablasion ??? BATCH UNIT TREATER SURGERY not sure tubal ligation and ablasion ? ? HEAD & NECK SURGERY Sinus ??? ORTHOPEDIC SURGERY 2020 radial head fracture 3 screws, left elbow ??? RADIOFREQUENCY ABLATION, UTERINE 2018 Social History Tobacco Use ??? Smoking status: Never Smoker ??? Smokeless tobacco: Never Used Substance Use Topics ??? Alcohol use: Not Currently Comment: None for 1.5 personal choice. Family hx. Problem (# of Occurrences) Relation (Name,Age of Onset) Anxiety Disorder (6) Father (aletha), Sister (dirk), Mother (spencer), Daughter (katlin), Daughter(kacie), Daughter (jose manuel) Asthma (6) Father (aletha), Sister (dirk), Mother (spencer), Daughter (kacie), Son (chula), Son (kathie) Cerebrovascular Disease (2) Father (aletha), Maternal Grandmother (jh) Depression (6) Paternal Grandfather (lucy), Father (aletha), Sister (dirk), Mother (spencer), Daughter (katlin), Daughter (kacie) Diabetes (1) Paternal Grandfather (lucy) Hypertension (1) Father (aletha) Substance Abuse (3) Father (aletha), Sister (dirk), Mother (spencer) acetaminophen (TYLENOL) 500 MG tablet, Take 500-1,000 mg by mouth every 6 hours as needed for mild pain ascorbic acid (VITAMIN C) 250 MG CHEW chewable tablet, Take 750 mg by mouth daily buPROPion (WELLBUTRIN XL) 300 MG 24 hr tablet, Take 1 tablet (300 mg) by mouth daily (Patient takingdifferently: Take 300 mg by mouth every morning ) DULoxetine (CYMBALTA) 60 MG capsule, Take 60 mg by mouth At Bedtime 2 tablets - 120mg total ELDERBERRY PO, Take 100 mg by mouth daily gabapentin (NEURONTIN) 400 MG capsule, Take 1 capsule (400 mg) by mouth 4 times daily ibuprofen (ADVIL/MOTRIN) 200 MG tablet, Take 400-600 mg by mouth every 6 hours as needed for pain lamoTRIgine (LAMICTAL) 100 MG tablet, Take by mouth daily And a 200mg lamoTRIgine (LAMICTAL) 200 MG tablet, Take by mouth daily oxyCODONE (ROXICODONE) 5 MG tablet, Take 1 tablet (5 mg) by mouth every 4 hours as needed for moderate to severe pain QUEtiapine (SEROQUEL) 100 MG tablet, Take 1 tablet (100 mg) by mouth At Bedtime vitamin D3 (CHOLECALCIFEROL) 50 mcg (2000 units) tablet, Take 1 tablet by mouth daily No current facility-administered medications on file prior to visit. Allergies Allergen Reactions ??? Amoxicillin Rash ROS: 5 point ROS negative except as noted above in HPI, including Gen., Resp., CV, GI & system review. OBJECTIVE: BP 102/66 Wt 91.4 kg (201 lb 6.4 oz) LMP 10/12/2021 (Exact Date) BMI 31.54 kg/m?? BMI: Body mass index is 31.54 kg/m??. General: Alert and oriented, no distress. Psychiatric: Mood and affect within normal limits. Skin: Warm and dry, no lesions, rashes or discolorations. Neck: Neck supple. Thyroid palpbably normal in size and without nodularity. Abdomen: Soft, nontender, no hepatosplenomegaly, no rebound or guarding, no masses, no hernias. Vulva: No external lesions, normal female hair distribution, no inguinal adenopathy. Urethra: Midline, non-tender, well supported, no discharge Vagina: Well-estrogenized, no abnormal discharge, no lesions Cervix: no lesions, no discharge and multiparous Uterus: anteverted, smooth contour, without enlargement, mobile, and without tenderness Ovaries: No masses appreciated, non-tender, mobile Rectal Exam: deferred Musculoskeletal: extremities normal In-Clinic Test Results: Results for orders placed or performed during the hospital encounter of 11/04/21 (from the past 24 hour(s)) Exercise Stress Test - Adult Narrative [id number]^CYRIL^AYDEE^LILIANA [facility] Echocardiography Laboratory [address] [place] [address] Name: MARTA HAWKINS : 1980 Study Date: 11/04/2021 08:30 AM Age: 41 yrs Gender: Female Patient Location: [facility] Reason For Study: Shortness of breath, Feeling of chest tightness History: Chest Pain,Shortness of [...] normal. Stress The patient exercised 7:12. RPP 20592. There was a normal BP response to exercise. Exercise was stopped due to dizziness. Target Heart Rate was achieved. The Nelson treadmill score was intermediate risk ( -11< Nelson score <5). No arrhythmia noted. Pt developed 7/10 chest pain during exercise. There were no ST segment changes observed with stress. Stress Results Protocol: Bernardo Maximum Predicted HR: 181 bpm Target HR: 154 bpm % Maximum Predicted HR: 93 % Heart Stage Duration Rate BP Comment (mm:ss) (bpm) Stage 1 3:00 148 120/70Chest Tightness: 4/10 Stage 2 3:00 164 134/58Chest Tightness: 4/10 Chest Tightness/pain: 7/10; Pt. is dizzy. Nelson Stage 3 1:12 169 / Treadmill Score: 3 (Moderate Risk) RecoveryR 20:00 110 118/82Chest tightness: 2/10; FAC: Below Average Stress Duration: 7:12 mm:ss * Recovery Time: 20:00 mm:ss Maximum Stress HR: 169 bpm * METS: 9 Report approved by: Charlie Cosme 11/04/2021 11:51 AM ASSESSMENT/PLAN: ICD-10-CM 1. Menorrhagia with regular cycle N92.0 Kortney-Operative Worksheet BATCH UNIT TREATER 2. Dysmenorrhea N94.6 Kortney-Operative Worksheet BATCH UNIT TREATER 3. Dyspareunia in female N94.10 Kortney-Operative Worksheet BATCH UNIT TREATER 4. S/P endometrial ablation Z98.890 Kortney-Operative Worksheet BATCH UNIT TREATER Discussed options of management with this 41-year-old patient with 6 prior vaginal deliveries who isstatus post tubal ligation and unsuccessful endometrial ablation. Explained that the most common reason for endometrial ablation to fail is adenomyosis in her clinical picture and OB history are all compatible. Adenomyosis was explained and that only hysterectomy would be definitive management for this difficult condition. All questions were answered and patient wishes to proceed with scheduling of a total laparoscopic hysterectomy in the near future Ramses Mcpherson MD [facility] ET WASH OPERATOR documented in this encounter Nursing Notes Carlene Frazier, PHARMACOLOGY PROFESSOR - 11/04/2021 11:15 AM CST Chief Complaint Patient presents with ??? Abnormal Uterine Bleeding c/o heavier and longer menses x 4 months initial BP 102/66 Wt 91.4 kg (201 lb 6.4 oz) LMP 10/12/2021 (Exact Date) BMI 31.54 kg/m?? Estimated body mass index is 31.54 kg/m?? as calculated from the following: Height as of 10/12/21: 1.702 m (5' 7). Weight as of this encounter: 91.4 kg (201 lb 6.4 oz). BP completed using cuff size regular. Carlene Frazier CMA ET WASH OPERATOR documented in this encounter Plan of Treatment Upcoming Encounters Date Type Specialty Care Team Description 09/26/2022 Appointment Speech Therapy Obdulio Barrera MD [address] [facility] 276 [place], [place] [address] Anabel Chew, EXCELLENCE COACH [address] [place] [address] 09/27/2022 Therapy Visit Physical Therapy Liusana Watkins, PT [address] [place] [address] 09/29/2022 Virtual Visit Pain & Palliative Marilia Deluna, [facility] PhD [address] [place], [place] [address] 09/30/2022 Office Visit Family Practice Aydee Nam, INSULATION WORKER APPRENTICE MANAGER OF ALLIED HEALTH SERVICES [address] [place] [phone] 10/03/2022 Therapy Visit Physical Therapy Una Reardon, PT [address] [place] [phone] 10/10/2022 Hospital Encounter Surgery Lesly Celaya MD [address] [place], [place] [address] 10/10/2022 Office Visit Surgery Lesly Celaya MD [address] [place], [place] [phone] Ninoska Flowers PA-C [address] [place], [place] [phone] 10/10/2022 Surgery Surgery Lesly Celaya, EXCISION, MASSES - MD back, abdomen, [address] extremity [place], [place] [phone] 10/11/2022 Virtual Visit Pharm Clari Stoll, [facility] [address] [id number] [place], [place] [address] 10/14/2022 Appointment Speech Therapy Anabel Chew, EXCELLENCE COACH [address] [address] 10/21/2022 Office Visit Pulmonology Obdulio Barrera MD [address] [facility] 276 [place], [place] [address] 10/25/2022 PRE VISIT ENT Charo Burton MD Previsit [address] [place] [address] 10/25/2022 Office Visit Charo Carter MD [address] [place] [phone] 10/25/2022 Office Visit ENT Provider, Jeannette Ent Dysphonia Service Line Bus Cleaner 10/28/2022 Appointment Speech Therapy Anabel Chew, EXCELLENCE COACH [address] [phone] 11/17/2022 Appointment Speech Therapy Anabel Chew, EXCELLENCE COACH [address] [phone] 12/23/2022 Office Visit Neurology Colby Yeung MD [address] [place] [id number] Scheduled Orders Name Type Priority Associated Diagnoses Order S chedule Kortney-Operative Procedures Routine Menorrhagia with Ordered: 11/04/2021 Worksheet BATCH UNIT TREATER regular cycle Dysmenorrhea Dyspareunia in f emale S/P endometrial ablation Scheduled Procedures Name Priority Associated Diagnoses Date/Time EXCISION, MASS, TORSO Lipoma of skin and subcuta neous 10/10/2022 7:30 AM BUCKET WASH OPERATOR tissue documented as of this encounter Visit Diagnoses Diagnosis Menorrhagia with regular cycle - Primary Excessive or frequent menstruation Dysmenorrhea Dyspareunia in female S/P endometrial ablation Other postprocedural status Lipoma of skin and subcutaneous tissue Lipoma of other skin and subcutaneous ti ssue documented in this encounter Additional Health Concerns Assessment Noted Time PHQ-9 Depression Total Score: 06/28/2021 7:03 AM CD T documented as of this encounter Care Teams Web Development Intern Relationship Specialty Start Date End Date Aydee Nam, PCP - General Nurse Practitioner - 05/17/21 INSULATION WORKER APPRENTICE MANAGER OF ALLIED HEALTH SERVICES Family [address] [place] [address] [phone] Aydee Nam, Assigned PCP 04/28/21 INSULATION WORKER APPRENTICE MANAGER OF ALLIED HEALTH SERVICES [address] [place] [phone] Louisa Hood, Assigned Neuroscience 07/11/21 INSULATION WORKER APPRENTICE MANAGER OF ALLIED HEALTH SERVICES Provider [address] [place], [place] [address] Se Levy, Lead Grain Packer 08/05/21 05/12/22 Clari Francois Pharmacist Pharmacist 08/06/21 06/07/22 Jocelyn [facility] [address] [facility] [address] [address] [place], Assigned Sleep 08/01/21 Angel Turcios, Provider [address] [place], [place] [phone] Lesly Celaya MD Assigned Surgical 09/05/[address] [place] [address] Elizabeth Mcintyre CNM Assigned OBGYN 09/05/21 11/06/21 [address] [address] Tawana Patel MA [facility] 09/30/21 Worker Mago Swift LICSW Lead Grain Packer Detacker - 08/05/21 Clinical documented as of this encounter
--- OUTSIDE RECORDS SUMMARY | 2022-09-21 04:14 | XMS_ITS | Encounter Summary ---
:1980 Author Organization [place] Address [address] [place] [address] Care Team Providers Name Role Phone Aydee Burton NECK BAND MAKER TREATMENT SPECIALIST Primary Care Provider [phone] Aydee Burton NECK BAND MAKER TREATMENT SPECIALIST Unavailable [phone] Louisa Hood NECK BAND MAKER TREATMENT SPECIALIST Unavailable [phone] Se Levy TERRITORY BUSINESS MANAGER Unavailable Unavailable Clari Ruiz [facility] Unavailable [phone] Angel Hannah MD Unavailable Lesly Celaya MD Unavailable Tawana Patel MA Unavailable Unavailable Ramses Mcpherson MD Unavailable [phone] Mago Swift CONSUMER SERVICES CONSULTANT Unavailable Encounter Details Date Type Department Care Team Description 11/10/2021 Travel Social History Tobacco Use Types Packs/Day [...] How often do you attend jainism or roman catholic services? Never 08/05/2021 Do [...] at Date Recorded Female 11/09/2021 7:53 PM TRENCH PIPE LAYER COVID-19 Exposure Response Date Recorded In the last month, have you been in contact with No / Unsure 11/10/2021 8:59 AM TRENCH PIPE LAYER someone who was confirmed or suspected to have Coronavirus / COVID-19? documented as of this encounter Plan of Treatment Upcoming Encounters Date Type Specialty Care Team Description 09/26/2022 Appointment Speech Therapy Obdulio Barrera MD 420 [facility] 276 [place], [place] [address] Anabel Chew, FOOD PRODUCT INSPECTOR [place] [id number] [facility] 396 [place], [place] [address] 09/27/2022 Therapy Visit Physical Therapy Luisana Watkins, PT [address] [place] [address] 09/29/2022 Virtual Visit Pain & Palliative Marilia Deluna Care [place] [address] [facility] [place] [address] 09/30/2022 Office Visit Family Practice Aydee Burton, NECK BAND MAKER TREATMENT SPECIALIST [address] [place], [place] [phone] 10/03/2022 Therapy Visit Physical Therapy David-Una Tang, PT [address] [place] [address] 10/10/2022 Hospital Encounter Surgery Lesly Celaya MD [address] [place] [address] 10/10/2022 Office Visit Surgery Lesly Celaya MD [address] [place] [address] Ninoska Flowers PA-Ynes [address] [place] [address] 10/10/2022 Surgery Surgery Lesly Celaya, EXCISION, MASSES - MD back, abdomen, [address] [place] [address] 10/11/2022 Virtual Visit Clari Su, [facility] [address] 9[address] 10/14/2022 Appointment Speech Therapy Anabel Chew, FOOD PRODUCT INSPECTOR [facility] 516 [facility] 396 [place], [place] [address] 10/21/2022 Office Visit Pulmonology Obdulio Barrera MD 420 [facility] 276 [place] [address] 10/25/2022 PRE VISIT ENT Charo Burton MD Previsit 909 [place] [address] 10/25/2022 Office Visit ENT Charo Burton MD 9[address] [place] [address] 10/25/2022 Office Visit ENT Provider, Ent Dysphonia Database Management Specialist 10/28/2022 Appointment Speech Therapy Anabel Chew, FOOD PRODUCT INSPECTOR [address] [address] 11/17/2022 Appointment Speech Therapy Anabel Chew, FOOD PRODUCT INSPECTOR [address] [address] 12/23/2022 Office Visit Neurology Colby Yeung MD [address] [id number] Scheduled Procedures Name Priority Associated Diagnoses Date/Time EXCISION, MASS, TORSO Lipoma of skin and subcuta neous 10/10/2022 7:30 AM TRENCH PIPE LAYER tissue documented as of this encounter Visit Diagnoses Not on filedocumented in this encounter Additional Health Concerns Assessment Noted Time PHQ-9 Depression Total Score: 22 06/28/2021 7:03 AM CD T documented as of this encounter Care Teams Core Drill Operator Relationship Specialty Start Date End Date Aydee Burton, PCP - General Nurse Practitioner - 05/17/21 NECK BAND MAKER TREATMENT SPECIALIST Family [address] [place] [address] [phone] Aydee Burton, Assigned PCP 04/28/21 NECK BAND MAKER [facility] 0004 [place], [place] [phone] Louisa Hood, Assigned Neuroscience 07/11/21 NECK BAND MAKER TREATMENT SPECIALIST Provider [address] [place] [address] Se Levy, Lead Loft Worker Pile Driving 08/05/21 05/12/22 [facility] Clari Ruiz Pharmacist Pharmacist 08/06/21 06/07/22 [facility] [address] [place] [address] [place], Assigned Sleep 08/01/21 Angel Turcios, Provider [address] [place] [address] Lesly Celaya MD Assigned Surgical 09/05/21 [address] [place] [address] Tawana Patel MA [facility] 09/30/21 Worker Ramses Mcpherson Assigned OBGYN 11/07/21 MD Onesimo Provider [address] [place] [address] Mago Swift, [facility] Lead Loft Worker Pile Driving Oyster Bed Worker - 08/05/21 Clinical documented as of this encounter
--- OUTSIDE RECORDS SUMMARY | 2022-09-21 04:15 | XMS_ITS | Encounter Summary ---
:1980 Author Organization [place] Address [address] [place] [address] Care Team Providers Name Role Phone Aydee Burton FLATWORK FEEDER RETAIL SERVICE LEAD MERCHANDISER Primary Care Provider [phone] Aydee Burton FLATWORK FEEDER RETAIL SERVICE LEAD MERCHANDISER Unavailable [phone] Louisa Hood FLATWORK FEEDER RETAIL SERVICE LEAD MERCHANDISER Unavailable [phone] Se Levy LABEL PASTER Unavailable Unavailable Clari Ruiz [facility] Unavailable Angel Hannah MD Unavailable Lesly Celaya MD Unavailable Elizabeth Mcintyre [facility] Unavailable Tawana Patel MA Unavailable Unavailable Mago Swift POLLS OR SURVEYS INTERVIEWER Unavailable Reason for Visit Reason Onset Date Comments Imm/Inj 10/08/2021 COVID-19 VACCINE Encounter Details Date Type Department Care Team Description 10/08/[address] [facility] Hig h priority for 2019-nCoV vaccine (Primary Dx); [place] Encounter for screening for other viral diseases [address] [place] [address] IHSAN Marcelo [phone] Social History Tobacco Use Types Packs/Day [...] er 08/05/2021 How often do you attend faith or mandaen services? Never 08/05/2021 Do you belong to any clubs or organizations such as faith N o 08/05/2021 groups, unions, fraternal or [...] at Date Recorded Female 11/09/2021 7:53 PM JEWELRY SALES COORDINATOR COVID-19 Exposure Response Date Recorded In the last month, have you been in contact with No / Unsure 10/08/2021 11:08 AM JEWELRY SALES COORDINATOR someone who was confirmed or suspected to have Coronavirus / COVID-19? documented as of this encounter Miscellaneous Notes Addendum Note - Jennifer Medel CMA - 10/08/2021 11:15 AM JEWELRY SALES COORDINATOR Addended by: JENNIFER MEDEL on: 10/08/2021 11:34 AM Modules accepted: Orders LRY SALES COORDINATOR documented in this encounter Plan of Treatment Upcoming Encounters Date Type Specialty Care Team Description 09/26/2022 Appointment Speech Therapy Obdulio Barrera MD 420 [facility] 276 [place], [place] [address] Anabel Chew, FLATWORK FEEDER [facility] 516 [facility] 396 [place] [address] 09/27/2022 Therapy Visit Physical Therapy Luisana Watkins, PT [address] [place] [address] 09/29/2022 Virtual Visit Pain & Palliative Marilia Deluna, [facility] PhD [address] [place], [place] [address] 09/30/2022 Office Visit Family Practice Aydee Burton, FLATWORK FEEDER RETAIL SERVICE LEAD MERCHANDISER [address] [place] [address] [phone] 10/03/2022 Therapy Visit Physical Therapy Una Reardon, PT [address] [place] [address] 10/10/2022 Hospital Encounter Surgery Lesly Celaya MD [address] [place], [place] [address] 10/10/2022 Office Visit Surgery Lesly Celaya MD [address] [place], [place] [address] Ninoska Flowers PA-C [address] [facility] 300 [place] [address] 10/10/2022 Surgery Surgery Lesly Celaya, EXCISION, MASSES - MD back, abdomen, [address] right lower [facility] extremity [place], [place] [phone] 10/11/2022 Virtual Visit Clari Su, [facility] [address] [place] [address] 10/14/2022 Appointment Speech Therapy Anabel Chew, FLATWORK FEEDER [address] [address] 10/21/2022 Office Visit Pulmonology Obdulio Barrera MD [address] [address] 10/25/2022 PRE VISIT ENT Charo Burton MD Previsit 9 [place], [place] [address] 10/25/2022 Office Visit ENT Charo Burton MD 909 [place], [place] [address] 10/25/2022 Office Visit ENT Provider, Ent Dysphonia Medical Claims Examiner 10/28/2022 Appointment Speech Therapy Anabel Chew, CELINE [address] [address] 11/17/2022 Appointment Speech Therapy Anabel Chew SLP [address] [address] 12/23/2022 Office Visit Neurology Colby Yeung MD [address] [address] Scheduled Procedures Name Priority Associated Diagnoses Date/Time EXCISION, MASS, TORSO Lipoma of skin and subcuta neous 10/10/2022 7:30 AM JEWELRY SALES COORDINATOR tissue documented as of this encounter Procedures Procedure Name Priority Date/Time Associated Diagnosis Comme nts COVID-19 VIRUS Routine 10/08/2021 11:32 AM Encounter for Resul ts for this (CORONAVIRUS) BY JEWELRY SALES COORDINATOR screening for other proc edure are in PCR viral diseases the results section. documented in this encounter Results Asymptomatic COVID-19 Virus (Coronavirus) by PCR Nose (10/08/2021 11:32 AM JEWELRY SALES COORDINATOR) [facility] Method Time Signature SARS CoV2 PCR Negative Negative, 10/09/2021 [facility] Testing sent to 1:16 PM JEWELRY SALES COORDINATOR LABORATORY reference lab. Results will be returned via unsolicited result Comment: NEGATIVE: SARS-CoV-2 (COVID-19) RNA not detected, presumed negative. Specimen Anatomical Collection Method Collection Time Receive d Time (Source) Location / / Volume Laterality Swab NASAL STRUCTURE / Non-blood 10/08/2021 11:32 2020 Unknown Collection / AM JEWELRY SALES COORDINATOR 11:48 AM JEWELRY SALES COORDINATOR Unknown Narrative [facility] - 10/09/2021 1:[address] Testing was performed using the Aptima SARS-CoV-2 Assay on the [employer] Instrument System. Additional in formation about this Emergency Use Authorization (EUA) assay can be found via the Lab Guide. This test should be ordered for t he detection of SARS-CoV-2 in individuals who meet SARS-CoV-2 clinical and/or epidemiological criteria. Test performance is unknown in asymptomatic patients. This test is for in vitro diagnostic use unde r the FDA EUA for laboratories certified under CLIA to per form high complexity testing. This test has not been FDA cleared or ap proved. A negative result does not rule out the presence of PCR in hibitors in the specimen or target RNA in concentration below the li ibeth of detection for the assay. The possibility of a false negati ve should be considered if the patient's recent exposure or clinica l presentation suggests COVID-19. This test was validated by the [facility] Infectious Diseases Diagnostic Laboratory. This lab oratory is certified under the Clinical Laboratory Improvement Amen dments of 1987 (CLIA-88) as qualified to perform high complexity lab oratory testing. Lesly Celaya MD LAB - MICRO GENERAL ORDERABL ES Performing Organization Address City/State/ZIP Code Phon e Number [facility] [place] [address] Diag. Lab 500 [facility], Room [address]297 [facility] Infectious [place], [place] [phone] Diseases Diagnostic [phone], [facility] Lab (IDDL) 420 [facility], Room D297 documented in this encounter Visit Diagnoses Diagnosis High priority for 2019-nCoV vaccine - Pr imary Encounter for screening for other viral diseases Lipoma of skin and subcutaneous tissue Lipoma of other skin and subcutaneous ti ssue documented in this encounter Additional Health Concerns Assessment Noted Time PHQ-9 Depression Total Score: 22 06/28/2021 7:03 AM CD T documented as of this encounter Care Teams Hand Stoner Relationship Specialty Start Date End Date Aydee Burton, PCP - General Nurse Practitioner - 05/17/21 FLATWORK FEEDER RETAIL SERVICE LEAD MERCHANDISER Family [address] [place] [address] [phone] Aydee Burton, Assigned PCP 04/28/21 FLATWORK FEEDER RETAIL SERVICE LEAD MERCHANDISER [address] [place] [address] [phone] Louisa Hood, Assigned Neuroscience 07/11/21 FLATWORK FEEDER RETAIL SERVICE LEAD MERCHANDISER Provider 500 [place] [address] Se Levy, Lead Vehicle Body Sander 08/05/21 05/12/22 Clari Francois Pharmacist Pharmacist 08/06/21 06/07/22 Jocelyn [facility] [address] [place] [address] [place], Assigned Sleep 08/01/21 Angel Turcios, Provider [address] [place] [address] Lesly Celaya MD Assigned Surgical 09/05/21 [address] [place] [place] [address] Elizabeth Mcintyre CNM Assigned OBGYN 09/05/21 11/06/[address] [facility] [place] [address] Tawana Patel MA [facility] 09/30/21 Worker Mago Swift POLLS OR SURVEYS INTERVIEWER Lead Vehicle Body Sander Process Control Tech - 08/05/21 Clinical documented as of this encounter
--- OUTSIDE RECORDS SUMMARY | 2022-09-21 04:15 | XMS_ITS | Encounter Summary ---
:1980 Author Organization [place] Address [address] [place] [address] Care Team Providers Name Role Phone Aydee Burton PROFESSIONAL SHOPPER RN FIRST ASSIST Primary Care Provider [phone] Aydee Burton PROFESSIONAL SHOPPER RN FIRST ASSIST Unavailable [phone] Louisa Hood PROFESSIONAL SHOPPER RN FIRST ASSIST Unavailable [phone] Se Levy SPORTS INFORMATION DIRECTOR Unavailable Unavailable Clari Ruiz [facility] Unavailable [phone] Angel Hannah MD Unavailable Lesly Celaya MD Unavailable Elizabeth Mcintyre [facility] Unavailable Tawana Patel MA Unavailable Unavailable Mago Swift CARE TECH Unavailable Encounter Details Date Type Department Care Team Description 10/12/2021 Travel Social History Tobacco Use Types Packs/Day [...] How often do you attend spiritism or shinto services? Never 08/05/2021 Do you [...] at Date Recorded Female 11/09/2021 7:53 PM FIRE CONTROL MECHANIC COVID-19 Exposure Response Date Recorded In the last month, have you been in contact with No / Unsure 10/12/2021 10:55 AM FIRE CONTROL MECHANIC someone who was confirmed or suspected to have Coronavirus / COVID-19? documented as of this encounter Plan of Treatment Upcoming Encounters Date Type Specialty Care Team Description 09/26/2022 Appointment Speech Therapy Obdulio Barrera MD 420 [facility] 276 [place], [place] [address] Anabel Chew JUNIOR ADMINISTRATIVE ASSISTANT [address] [place], [place] [address] 09/27/2022 Therapy Visit Physical Therapy Luisana Watkins, PT [address] [place] [address] 09/29/2022 Virtual Visit Pain & Palliative Marilia Deluna, [facility] PhD [address] [place] [address] 09/30/2022 Office Visit Family Practice Aydee Burton, PROFESSIONAL SHOPPER RN FIRST ASSIST [address] [place], [place] [phone] 10/03/2022 Therapy Visit Physical Therapy David-Una Tang, PT [address] [place] [address] 10/10/2022 Hospital Encounter Surgery Lesly Celaya MD [address] [place] [address] 10/10/2022 Office Visit Surgery Lesly Celaya MD [address] [place] [address] Nnioska Flowers PA-Ynes [address] [place] [address] 10/10/2022 Surgery Surgery Lesly Celaya, EXCISION, MASSES - MD back, abdomen, [address] [place] [address] 10/11/2022 Virtual Visit Pharm Clari Stoll, [facility] [address] [place] 1866[address] [place], [place] [address] 10/14/2022 Appointment Speech Therapy Anabel Chew, JUNIOR ADMINISTRATIVE ASSISTANT [facility] 516 [facility] 396 [place] [address] 10/21/2022 Office Visit Pulmonology Obdulio Barrera MD 420 [facility] 276 [place] [address] 10/25/2022 PRE VISIT ENT Charo Burton MD Previsit 909 [place] [address] 10/25/2022 Office Visit ENT Charo Burton MD 909 [place] [address] 10/25/2022 Office Visit ENT Provider, Ent Dysphonia Information Technology Security Manager 10/28/2022 Appointment Speech Therapy Anabel Chew, JUNIOR ADMINISTRATIVE ASSISTANT [address] 6[address] 11/17/2022 Appointment Speech Therapy Anabel Chew, JUNIOR ADMINISTRATIVE ASSISTANT [address] 305025 12/23/2022 Office Visit Neurology Colby Yeung MD [address] [address] Scheduled Procedures Name Priority Associated Diagnoses Date/Time EXCISION, MASS, TORSO Lipoma of skin and subcuta neous 10/10/2022 7:30 AM FIRE CONTROL MECHANIC tissue documented as of this encounter Visit Diagnoses Not on filedocumented in this encounter Additional Health Concerns Assessment Noted Time PHQ-9 Depression Total Score: 22 06/28/2021 7:03 AM CD T documented as of this encounter Care Teams Sintering Press Operator Relationship Specialty Start Date End Date Aydee Burton, PCP - General Nurse Practitioner - 05/17/21 PROFESSIONAL SHOPPER RN FIRST ASSIST Family [address] [place] [phone] Aydee Burton, Assigned PCP 04/28/21 PROFESSIONAL SHOPPER [facility] [address] [place], [place] [phone] Louisa Hood, Assigned Neuroscience 07/11/21 PROFESSIONAL SHOPPER RN FIRST ASSIST Provider [address] [place] [address] Se Levy, Lead Orthopedics Teacher 08/05/21 05/12/22 SPORTS INFORMATION DIRECTOR Clari Ruiz Pharmacist Pharmacist 08/06/21 [facility]/07/[facility] [address] [place] [address] [place], Assigned Sleep 08/01/21 Angel Turcios, Provider [address] [place] [address] Lesly Celaya MD Assigned Surgical 09/05/[address] [place] [address] Elizabeth Mcintyre CNM Assigned OBGYN 09/05/21 11/06/[address] [place] [address] Tawana Patel MA [facility] 09/30/21 Worker Mago Swift [facility] Lead Orthopedics Teacher Industrial Economist - 08/05/21 Clinical documented as of this encounter
--- OUTSIDE RECORDS SUMMARY | 2022-09-21 04:15 | XMS_ITS | Encounter Summary ---
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 slope: 370.0 cm/sec2 MV dec time: 0.13 sec LV V1 max P.5 mmHg LV V1 max: 93.1 cm/sec LV V1 VTI: 19.7 cm SV(LVOT): 74.9 ml SI(LVOT): 36.6 ml/m2 PA acc time: 0.14 sec E/E' av.9 Lateral E/e': 5.2 Medial E/e': 10.6 Report approved by: Charlie Barnett 11/04/2021 09:25 AM Aydee Nam APRN CUTTER OPERATOR CV ECHO ORDERABLES EKG 12-lead complete w/read - Clinics (10/05/2021 8:48 AM WIRING INSPECTOR) Narrative This result has an attachment that is no t available. Aydee Nam APRN CUTTER OPERATOR ECG ORDERABLES HCG Qual, Urine ([id number]) (10/05/2021 8:21 AM WIRING INSPECTOR) [facility] Method Time Signature hCG Urine Negative Negative NIKOLAS 10/05/2021 [facility] Qualitative 8:33 AM WIRING INSPECTOR Comment: This test is for screening purp oses. Results should be interpreted along with the clinical picture. Confirmation testing is available if warranted by ordering [id number], HCG Quantitative . Specimen Anatomical Collection Method Collection Time Receive d Time (Source) Location / / Volume Laterality Urine MID-STREAM URINE Non-blood 10/05/2021 8:21 AM 10/05 8:26 SPECIMEN / Unknown Collection / WIRING INSPECTOR AM WIRING INSPECTOR Unknown Aydee Nam APRN CUTTER OPERATOR LAB - URINE ORDERABLES Performing Organization Address City/State/ZIP Code Phon e Number [facility] [place] [address] [employer] [facility] [address] [place] [address] S. E. Lab (no room number, 1st floor of clinic) [place] [address], [facility] [address] [place] [address] S. E. Lab (no room number, 1st floor of clinic) documented in this encounter Visit Diagnoses Diagnosis Preoperative examination - Primary Preoperative examination, unspecified Bilateral occipital neuralgia Other syndromes affecting cervical regio n Lipoma of skin and subcutaneous tissue Lipoma of other skin and subcutaneous ti ssue Shortness of breath Feeling of chest tightness Other chest pain Need for influenza vaccination Need for prophylactic vaccination and in oculation against influenza Need for COVID-19 vaccine Shortness of breath Feeling of chest tightness Other chest pain Shortness of breath Feeling of chest tightness Other chest pain Lipoma of skin and subcutaneous tissue Lipoma of other skin and subcutaneous ti ssue documented in this encounter Additional Health Concerns Assessment Noted Time PHQ-9 Depression Total Score: 22 06/28/2021 7:03 AM CD T documented as of this encounter Care Teams Cash Crop Farmer Relationship Specialty Start Date End Date Aydee Nam, PCP - General Nurse Practitioner - 05/17/21 PANEL MAKER CUTTER OPERATOR Family [address] [place] [address] [phone] Aydee Nam, Assigned PCP 04/28/[address] [id number] Louisa Hood, Assigned Neuroscience 07/11/21 PANEL MAKER CUTTER OPERATOR Provider [address] [place] [address] [phone] Se Levy, Lead Sybase Developer 08/05/21 05/12/22 Clari Francois Pharmacist Pharmacist 08/06/21 06/07/22 Jocelyn, [facility] [address] [place] [address] [place], Assigned Sleep 08/01/21 Angel Turcios, Provider [address] [place], [place] [phone] Lesly Celaya MD Assigned Surgical 09/05/21 [address] [place] [address] Elizabeth Mcintyre CNM Assigned OBGYN 09/05/21 11/06/21 [id number] [facility] [place] [address] Tawana Patel MA [facility] 09/30/21 Worker Mago Swift LICSW Lead Sybase Developer Automobile Appraiser - 08/05/21 Clinical documented as of this encounter
--- OUTSIDE RECORDS SUMMARY | 2022-09-21 04:15 | XMS_ITS | Encounter Summary ---
:1980 Author Organization [place] Address [address] [place] [address] Care Team Providers Name Role Phone Aydee Nma ASSISTANT PROFESSOR OF ANTHROPOLOGY QUALITY TESTER Primary Care Provider [phone] Aydee Nam APRN QUALITY TESTER Unavailable [phone] Louisa Hood ASSISTANT PROFESSOR OF ANTHROPOLOGY QUALITY TESTER Unavailable [phone] Se Levy MOLDING PROCESS TECHNICIAN Unavailable Unavailable Clari Ruiz [facility] Unavailable Angel Hannah MD Unavailable Lesly Celaya MD Unavailable Elizabeth Mcintyre [facility] Unavailable Tawana Patel MA Unavailable Unavailable Mago Swift AMPOULE EXAMINER Unavailable Reason for Referral CV Testing (Routine) - Closed Specialty Diagnoses / Procedures Referred By Contact Refer red To Contact Diagnoses Shortness of breath Feeling of chest tightness Aydee Nam APRN Procedures Echocardiogram Complete ZZHC TTE W/DOPPLER, COMPLETE ZZHC ECHO COMPLETE W DOPPLER W CONTRAST ZZHC ECHO COMPLETE W DOPPLER W/O CONTRAST ZZHC IV PUSH SINGLE, INITIAL SUBSTANCE ZZHC US GUIDE FOR PERICARDIOCENTESIS QUALITY TESTER ZZHC ECHO MYOCARD BX ZZC INJECTION, PERFLUTREN LIPID MICROSPHERES, PER ML ZZHC STATISTIC IV PUSH SINGLE INITIAL SUBSTANCE NY ECHO MYOCARD BX [place] INJECTION, PERFLUTREN LIPID MICROSPHERES, PER ML [place] TTE W/DOPPLER, COMPLETE [address] [place] IV PUSH SINGLE, INITIAL S UBSTANCE NY TTE W/DOPPLER, COMPLETE NY TTE W/DOPPLER, COMPLETE HC US GUIDE FOR PERICARDIOCENTESIS HC ECHO MYOCARD BX HC IV PUSH SINGLE, INITIAL SUBSTANCE HC STATISTIC IV PUSH [place] [address] HC ECHO COMPLETE W DOPPLER W CONTRAST HC ECHO COMPLETE W DOPPLER W/O CONTRAST Referral ID Status Reason Start Date Expiration Date Visits Requ ested Visits Authorized [id number] Closed 10/05/2021 10/05/2022 1 1 TIN MAKER UTILITY Reason for Visit CV Testing (Routine) - Closed Specialty Diagnoses / Procedures Referred By Contact Refer red To Contact Diagnoses Shortness of breath Feeling of chest tightness Aydee Nam, ELADIO Procedures Echocardiogram Complete ZZHC TTE W/DOPPLER, COMPLETE ZZHC ECHO COMPLETE W DOPPLER W CONTRAST ZZHC ECHO COMPLETE W DOPPLER W/O CONTRAST ZZHC IV PUSH SINGLE, INITIAL SUBSTANCE ZZHC US GUIDE FOR PERICARDIOCENTESIS QUALITY TESTER ZZHC ECHO MYOCARD BX ZZC INJECTION, PERFLUTREN LIPID MICROSPHERES, PER ML ZZHC STATISTIC IV PUSH SINGLE INITIAL SUBSTANCE [place] ECHO MYOCARD BX [place] INJECTION, PERFLUTREN LIPID MICROSPHERES, PER ML [place] TTE W/DOPPLER, COMPLETE [address] [facility] [place] IV PUSH SINGLE, INITIAL S UBSTANCE [place] TTE W/DOPPLER, COMPLETE [place] TTE W/DOPPLER, COMPLETE HC US GUIDE FOR PERICARDIOCENTESIS HC ECHO MYOCARD BX HC IV PUSH SINGLE, INITIAL SUBSTANCE HC STATISTIC IV PUSH [place] [address] HC ECHO COMPLETE W DOPPLER W CONTRAST HC ECHO COMPLETE W DOPPLER W/O CONTRAST Referral ID Status Reason Start Date Expiration Date Visits Requ ested Visits Authorized [id number] Closed 10/05/2021 10/05/2022 1 1 Encounter Details Date Type Department Care Team Description 11/04/2021 Hospital Encounter [facility] Aydee Nam tness of breath; [facility] ELADIO Mendez Feeling o f chest tightness [facility] [address] [place] [address] [place] [address] [address] [place] [address] [phone] Social History Tobacco Use Types Packs/Day Years [...] er 08/05/2021 How often do you attend synagogue or scientology services? Never 08/05/2021 Do you belong to any clubs or organizations such as synagogue N o 08/05/2021 groups, unions, fraternal or [...] at Date Recorded Female 11/09/2021 7:53 PM GELATIN MAKER UTILITY COVID-19 Exposure Response Date Recorded In the last month, have you been in contact with No / Unsure 11/04/2021 7:37 AM GELATIN MAKER UTILITY someone who was confirmed or suspected to [...] Result Encounter Note - Aydee Nam APRN QUALITY TESTER - 11/04/2021 8:27 AM GELATIN MAKER UTILITY Normal in another encounter. MARINO Spivey TIN MAKER UTILITY documented in this encounter Plan of Treatment Upcoming Encounters Date Type Specialty Care Team Description 09/26/2022 Appointment Speech Therapy Obdulio Barrera MD [address] [facility] [address] [place], [place] [address] Anabel Chew, HANDLE ATTACHER [place] [id number] [facility] [address] [place] [address] 09/27/2022 Therapy Visit Physical Therapy Luisana Watkins, PT [address] [place] [address] 09/29/2022 Virtual Visit Pain & Palliative Marilia Deluna, Care PhD [address] [place] [address] 09/30/2022 Office Visit Family Practice Aydee Nam APRN QUALITY TESTER [address] [place] [phone] 10/03/2022 Therapy Visit Physical Therapy Una Reardon, PT [address] [place] [phone] 10/10/2022 Hospital Encounter Surgery Lesly Celaya MD [address] [place], [place] [address] 10/10/2022 Office Visit Surgery Lesly Celaya MD [address] [place] [address] Ninoska Flowers PA-C [address] [facility] [address] [place], [place] [phone] 10/10/2022 Surgery Surgery Lesly Celaya, EXCISION, MASSES - MD back, abdomen, [address] extremity [place], [place] [address] 10/11/2022 Virtual Visit Clari Su, [facility] [address] [place] [address] 10/14/2022 Appointment Speech Therapy Anabel Chew, HANDLE ATTACHER [address] [place], [place] [address] 10/21/2022 Office Visit Pulmonology Obdulio Barrera MD [address] [phone] 10/25/2022 PRE VISIT ENT Charo Burton MD Previsit [address] [place], [place] [address] 10/25/2022 Office Visit ENT Charo Burton MD [address] [place] [phone] 10/25/2022 Office Visit ENT Provider, Ent Dysphonia Domestic Travel Consultant 10/28/2022 Appointment Speech Therapy Anabel Chew SLP [address] [phone] 11/17/2022 Appointment Speech Therapy Anabel Chew SLP [address] [phone] 12/23/2022 Office Visit Neurology Colby Yeung MD [address] [id number] Scheduled Procedures Name Priority Associated Diagnoses Date/Time EXCISION, MASS, TORSO Lipoma of skin and subcuta neous 10/10/2022 7:30 AM GELATIN MAKER UTILITY tissue documented as of this encounter Procedures Procedure Name Priority Date/Time Associated Diagnosis Comme nts ECHO COMPLETE Routine 11/04/2021 8:23 AM Shortness of breath Results for this GELATIN MAKER UTILITY Feeling of chest procedure a re in the tightness results section . documented in this encounter Results ECHO COMPLETE (11/04/2021 8:23 AM GELATIN MAKER UTILITY) athologist Signature LVEF 55-60% CARDIOLOGY RESULTS Anatomical Region Laterality Modality Echocardiography Specimen (Source) Anatomical Collection Method Collection Time Re ceived Time Location / / Volume Laterality 11/04/2021 7:45 AM GELATIN MAKER UTILITY Narrative 11/04/2021 9:25 AM GELATIN MAKER UTILITY [id number]^CYRIL^AYDEE^LILIANA [facility] Echocardiography Laboratory [address] [place] [id number] Name: MARTA HAWKINS : 1980 Study Date: 11/04/2021 07:45 AM Age: 41 yrs Gender: Female Patient Location: [facility] Reason For Study: Shortness of breath, F [...] note might be different from the original. [id number]^CYRIL^AYDEE^LILIANA [facility] Echocardiography Laboratory [address] [place] [id number] Name: MARTA HAWKINS : 1980 Study Date: 11/04/2021 07:45 AM Age: 41 yrs Gender: Female Patient Location: [facility] Reason For Study: Shortness of breath, F [...] Charlie Barnett 11/04/2021 09:25 AM Aydee Nam ASSISTANT PROFESSOR OF ANTHROPOLOGY QUALITY TESTER CV ECHO ORDERABLES documented in this encounter Visit Diagnoses Diagnosis Shortness of breath Feeling of chest tightness Other chest pain Lipoma of skin and subcutaneous tissue Lipoma of other skin and subcutaneous ti ssue documented in this encounter Additional Health Concerns Assessment Noted Time PHQ-9 Depression Total Score: 06/28/2021 7:03 AM CD T documented as of this encounter Care Teams Rigger Helper Relationship Specialty Start Date End Date Aydee Nam, PCP - General Nurse Practitioner - 05/17/21 ASSISTANT PROFESSOR OF ANTHROPOLOGY QUALITY TESTER Family [address] [place] [address] [phone] Aydee Nam, Assigned PCP 04/28/21 ASSISTANT PROFESSOR OF ANTHROPOLOGY QUALITY TESTER [address] [place] [address] [phone] Louisa Hood, Assigned Neuroscience 07/11/21 ASSISTANT PROFESSOR OF ANTHROPOLOGY QUALITY TESTER Provider [address] [place], [place] [phone] Se Levy, Lead Diamond Sizer And Grader 08/05/21 05/12/22 Clari Francois Pharmacist Pharmacist 08/06/21 06/07/[address] [facility] [address] [place] [address] [place], Assigned Sleep 08/01/21 Angel Turcios, Provider [address] [place] [address] Lesly Celaya MD Assigned Surgical 09/05/[address] [place] [address] Elizabeth Mcintyre CNM Assigned OBGYN 09/05/21 11/06/21 [id number] [place] [address] Tawana Patel MA [facility] 09/30/21 Worker Mago Swift LICSW Lead Diamond Sizer And Grader History Faculty Member - 08/05/21 Clinical documented as of this encounter
--- OUTSIDE RECORDS SUMMARY | 2022-09-21 04:15 | XMS_ITS | Encounter Summary ---
:1980 Author Organization [facility] Address [address] [place] [address] Care Team Providers Name Role Phone Aydee Burton COMMERCIAL LINES UNDERWRITER FURNACE PUNCHER Primary Care Provider [phone] Aydee Burton COMMERCIAL LINES UNDERWRITER FURNACE PUNCHER Unavailable [phone] Louisa Hood COMMERCIAL LINES UNDERWRITER FURNACE PUNCHER Unavailable [phone] Se Levy SUPERVISOR DRYING AND WINDING Unavailable Unavailable Clari Ruiz [facility] Unavailable Angel Hannah MD Unavailable Lesly Celaya MD Unavailable Elizabeth Mcintyre CN Unavailable Tawana Patel MA Unavailable Unavailable Mago Swift PROCESS DEVELOPMENT CHEMIST Unavailable Reason for Visit Auth/Cert Specialty Diagnoses / Procedures Referred By Contact Refer red To Contact Surgery Diagnoses Lipoma of skin and subcutaneous tissue Lipoma of skin and subcutaneous tissue [D17.30] Rh Per iop Services Procedures HC EXC BENIGN SKIN LESION TRUNK/ARM/LEG <=0.5 CM HC EXC BENIGN SKIN LESION TRUNK/ARM/LEG 0.6-1.0 CM HC EXC BENIGN SKIN LESION TRUNK/ARM/LEG 1.1-2.0 CM HC EXC BENIGN SKIN LESION TRUNK/ARM/LEG 2.1-3.0 CM [address] [facility] HC EXC BENIGN SKIN LESION TR UNK/ARM/LEG 3.1-4.0 CM HC EXC BENIGN SKIN LESION TRUNK/ARM/LEG >4 CM HC EXC MALIG SKIN LESION TRUNK/ARM/LEG <=0.5 CM HC EXC MALIG SKIN LESION TRUNK/ARM/LEG 0.6-1.0 CM HC EXC MALIG SKIN LESION TRUNK/ARM/LEG 1.1-2.0 [place] [address] HC EXC MALIG SKIN LESION SUSANA NK/ARM/LEG 2.1-3.0 CM HC EXC MALIG SKIN LESION TRUNK/ARM/LEG 3.1-4.0 CM HC EXC MALIG SKIN LESION TRUNK/ARM/LEG >4 CM HC EXCISION TUMOR SOFT TISSUE BACK/FLANK <3 CM HC EXCISION TUMOR SOFT TISSUE BACK/FLANK >=3 CM HC EXC TUMOR TISS BACK/FLANK SUBFASCIAL <5CM HC EXC TUMOR TISS BACK/FLANK SUBFASCIAL >=5CM EXCISION MULTIPLE LIPOMAS - bilateral legs, arms and trunk Referral ID Status Reason Start Date Expiration Date Visits Requ ested Visits Authorized [id number] 1 1 Encounter Details Date Type Department Care Team Description 10/12/[address] [facility] Lesly Celaya, Lipoma of torso [place] PreOP/PostOP (Primary Dx) [address] [facility] [address] [facility] [address] [place], [place] [phone] [id number] Social History Tobacco Use Types Packs/Day Years [...] How often do you attend yarsanism or gnosticism services? Never 08/05/2021 Do you [...] at Date Recorded Female 11/09/2021 7:53 PM QUALITY CONTROL LAB TECH COVID-19 Exposure Response Date Recorded In the last month, have you been in contact with No / Unsure 10/12/2021 10:55 AM QUALITY CONTROL LAB TECH someone who was confirmed or suspected to have Coronavirus / COVID-19? documented as of this encounter Last Filed Vital Signs Vital Sign Reading Time Taken Comments Blood Pressure 133/77 10/12/2021 5:10 PM QUAL[facility] CONTROL LAB TECH Pulse 110 10/12/2021 5:10 PM QUALITY CONTROL LAB TECH Temperature 36.8 ??C (98.2 ??F) 10/12/2021 5:10 PM QUALITY CONTROL LAB TECH Respiratory Rate 10 10/12/2021 5:10 PM QUALITY CONTROL LAB TECH Oxygen Saturation 96% 10/12/2021 5:10 PM QUALITY CONTROL LAB TECH Inhaled Oxygen Concentration - - Weight 93 kg (205 lb) 10/12/2021 11:16 AM QUALITY CONTROL LAB TECH Height 170.2 cm (5' 7) 10/12/2021 11:16 AM QUALITY CONTROL LAB TECH Body Mass Index 32.11 10/12/2021 11:16 AM QUALITY CONTROL LAB TECH documented in this encounter Discharge Instructions Discharge InstructionsAngela Ramos RN - 10/12/2021 5:00 PM QUALITY CONTROL LAB TECH HOME CARE FOLLOWING MINOR SURGERY Rocío Alvarez, Roxana Guy, RRosalba Ortega???Ivelisse Greco RESULTS: If a biopsy of tissue was done, you may call for your final pathology report after 1p.m. two workingdays after surgery. Otherwise, this will be reviewed with you at time of phone follow-up (described below). INCISIONAL CARE: ??? If you have a dressing in place, keep clean and dry for 24 hours; you may replace the gauze if it becomes soiled. ??? After 24 hours you may remove the dressing and shower. Do not submerse incision in water for 1 week. ??? If you have a Dermabond dressing (a type of skin glue), you may shower immediately. ??? Sutures which are beneath the skin will absorb and do not need to be removed. ??? Sutures you can see should be removed at your surgeon's office near 2 weeks postop, unless otherwise instructed. ??? If present, leave the steri-strips (white paper tapes) in place for 14 days after surgery. ??? If present, leave Dermabond glue in place until it wears/flakes off. ??? You may expect a small amount of drainage from your incision. ??? A lump/ridge under the incision is normal and will gradually resolve. If it becomes red or very uncomfortable, contact the nurse at your surgeon's office to discuss whether this needs to be evaluated. ACTIVITY: Cautiously resume exercise and strenuous activities such as jogging, tennis, aerobics, etc. Also, becareful of stretching activities which affect the area of surgery for two weeks. DIET: Start with liquids and gradually resume your regular diet as tolerated. Increased fluid intake is recommended. While taking pain medications, consider use of a stool softener, increase your fiber in your diet, or add a fiber supplement (like Metamucil, Citrucel) to help prevent constipation - a possible side effect of pain medications. DISCOMFORT: Local anesthetic placed at surgery should provide relief for 4-8 hours. Begin taking pain pills before discomfort is severe. Take the pain medication with some food, when possible, to minimize side effects. Intermittent use of ice packs may help during the first 1-3 weeks after surgery. Expect gradual improvement. For the first 72 hours after surgery, take the following (can be obtained over the counter) - Ibuprofen (motrin) 400-600mg every 6 hours (max 2,400mg per day) - Tylenol (acetaminophen) 500-1000mg every 6 hours (max 3,000mg per day) - Take with food if GI upset occurs - If additional pain medication is needed, take the narcotic that you were prescribed. - After 72 hours, take the above pain medication only as needed. Fbln-qyp-icznjvt anti-inflammatory medications (i.e. Ibuprofen/Advil/Motrin or Naprosyn/Aleve) may be used per package instructions in addition to or while tapering off the narcotic pain medications todecrease swelling and sensitivity. DO NOT TAKE these Anti-inflammatory medications if your primary physician has advised against doing so, or if you have acid reflux, ulcer, or bleeding disorder, or take blood-thinner medications. Call your primary physician or the surgery office if you have medication questions. FOLLOW-UP AFTER SURGERY: -Our office will contact you approximately 2-3 weeks after surgery to check on your progress and answer any questions you may have. If you are doing well, you will not need to return for an office appointment. If any concerns are identified over the phone, we will help you make an appointment to see a provider. -If you have not received a phone call, have any questions or concerns, or would like to be seen, please call us at [phone]. We are located at: [address] [facility], [address]; [place] [address] -CONTACT US IF THE FOLLOWING DEVELOPS: 1. A fever that is above 101?? 2. Increased redness, warmth, drainage, bleeding, or swelling. 3. Pain that is not relieved by rest/ice and your prescription. 4. Increasing pain after 48 hours. 5. Drainage that is thick, cloudy, yellow, green or white. 6. Any other questions or concerns. FREQUENTLY ASKED QUESTIONS: Q: How should my incision look? A: Normally your incision will appear slightly swollen with light redness directly along the incision itself as it heals. It may feel like a bump or ridge as the healing/scarring happens, and over time(3-4 months) this bump or ridge feeling should slowly go away. In general, clear or pink watery drainage can be normal at first as your incision heals, but should decrease over time. Q: How do I know if my incision is infected? A: Look at your incision for signs of infection, like redness around the incision spreading to surrounding skin, or drainage of cloudy or foul-smelling drainage. If you feel warm, check your temperature to see if you are running a fever. If any of these things occur, please notify the nurse at our office. We may need you to come into the office for an incision check. Q: How do I take care of my incision? A: If you have a dressing in place - Starting the day after surgery, replace the dressing 1-2 times a day until there is no further drainage from the incision. At that time, a dressing is no longer needed. Try to minimize tape on the skin if irritation is occurring at the tape sites. If you have significant irritation from tape on the skin, please call the office to discuss other method of dressing your incision. Small pieces of tape called ???steri-strips?? may be present directly overlying your incision; these may be removed 10 days after surgery unless otherwise specified by your surgeon. If these tapes start to loosen at the ends, you may trim them back until they fall off or are removed. A: If you had ???Dermabond?? tissue glue used as a dressing (this causes your incision to look shiny with a clear covering over it) - This type of dressing wears off with time and does not require more dressings over the top unless it is draining around the glue as it wears off. Do not apply ointments or lotions over the incisions until the glue has completely worn off. Q: There is a piece of tape or a sticky ???lead?? still on my skin. Can I remove this? A: Sometimes the sticky ???leads?? used for monitoring during surgery or for evaluation in the emergency department are not all removed while you are in the hospital. These sometimes have a tab or metal dot on them. You can easily remove these on your own, like taking off a band-aid. If there is a gel substance under the ???lead?? , simply wipe/clean it off with a washcloth or paper towel. Q: What can I do to minimize constipation (very hard stools, or lack of stools)? A: Stay well hydrated. Increase your dietary fiber intake or take a fiber supplement -with plenty ofwater. Walk around frequently. You may consider an ffzv-ize-eeoqzgt stool-softener. Your Pharmacist can assist you with choosing one that is stocked at your pharmacy. Constipation is also one of the most common side effects of pain medication. If you are using pain medication, be pro-active and try toPREVENT problems with constipation by taking the steps above BEFORE constipation becomes a problem. Q: What do I do if I need more pain medications? A: Call the office to receive refills. Be aware that certain pain meds cannot be called into a pharmacy and actually require a paper prescription. A change may be made in your pain med as you progress thru your recovery period or if you have side effects to certain meds. --Pain meds are NOT refilled after 5pm on weekdays, and NOT AT ALL on the weekends, so please look ahead to prevent problems. Q: Why am I having a hard time sleeping now that I am at home? A: Many medications you receive while you are in the hospital can impact your sleep for a number of days after your surgery/hospitalization. Decreased level of activity and naps during the day may alsomake sleeping at night difficult. Try to minimize day-time naps, and get up frequently during the day to walk around your home during your recovery time. Sleep aides may be of some help, but are not recommended for long-term use. Q: I am having some back discomfort. What should I do? A: This may be related to certain positioning that was required for your surgery, extended periods of time in bed, or other changes in your overall activity level. You may try ice, heat, acetaminophen,or ibuprofen to treat this temporarily. Note that many pain medications have acetaminophen in them and would state this on the prescription bottle. Be sure not to exceed the maximum of 4000mg per day of acetaminophen. If the pain you are having does not resolve, is severe, or is a flare of back pain you have had onother occasions prior to surgery, please contact your primary physician for further recommendations or for an appointment to be examined at their office. Q: Why am I having headaches? A: Headaches can be caused by many things: caffeine withdrawal, use of pain meds, dehydration, high blood pressure, lack of sleep, over-activity/exhaustion, flare-up of usual migraine headaches. If youfeel this is related to muscle tension (a band-like feeling around the head, or a pressure at the low-back of the head) you may try ice or heat to this area. You may need to drink more fluids (try electrolyte drink like Gatorade), rest, or take your usual migraine medications. If your headaches do not resolve, worsen, are accompanied by other symptoms, or if your blood pressure is high, please call your primary physician for recommendation and/or examination. Q: I am unable to urinate. What do I do? A: A small percentage of people can have difficulty urinating initially after surgery. This includesbeing able to urinate only a very small amount at a time and feeling discomfort or pressure in the very low abdomen. This is called ???urinary retention?? , and is actually an urgent situation. Proceedto your nearest Emergency department for evaluation (not an Urgent Care Center). Sometimes the bladder does not work correctly after certain medications you receive during surgery, or related to certain procedures. You may need to have a catheter placed until your bladder recovers. When planning to goto an Emergency department, it may help to call the ER to let them know you are coming in for this problem after a surgery. This may help you get in quicker to be evaluated. If you have symptoms of a urinary tract infection, please contact your primary physician for the proper evaluation and treatment. If you have other questions, please call the office Monday thru Monday between 8am and 5pm to discuss with the nurse or physician print shop assistant. # There is a surgeon DRAFTING ENGINEER on weekday evenings and over the weekend in case of urgent need only, andmay be contacted at the same number. If you are having an emergency, call 911 or proceed to your nearest emergency department. GENERAL ANESTHESIA OR SEDATION ADULT DISCHARGE INSTRUCTIONS [...] STILL NOT ABLE TO URINATE (PASS WATER). ITY CONTROL LAB TECH documented in this encounter Medications at Time [...] lamoTRIgine (LAMICTAL) Take by mouth daily 0 1112/202001/14/2022 100 MG tablet And a 200mg Total [...] documented as of this encounter Miscellaneous Notes Op Note - Lesly Celaya MD - 10/12/2021 1:44 PM CST General Surgery Operative Note Pre-operative diagnosis: Lipomas - bilateral thighs, bilateral forearms, back Post-operative diagnosis: same Procedure: excision of lipomas between 0.5cm-5cm - left lower back x2, right lower back x 1, right forearm x 3, left forearm x 3, left groin x 1, left anterior thigh x 2, right anterior thigh x 2 Surgeon: Lesly Celaya MD Radiologic Electronic Specialist(s): Mario Castellon PA-C and Jonah Mckeon MS3 Anesthesia: General Estimated blood loss: 3 cc Specimens: Findings: ID Type Source Tests Collected by Time Destination 1 : Multiple lipomas from bilateral upper legs, lower arms, and back Tissue Thigh, Left SURGICAL PATHOLOGY EXAM Lesly Celaya MD 10/12/2021 1:55 PM Simple lipomas. Left back lipomas more spiculated. After induction of anesthesia, she was positioned lithotomy with arms out on arm boards and straps and padding where needed. The bilateral anterior thighs, left groin and bilateral forearms were prepped and draped in standard sterile fashion. In turn, each lipoma was excised in the same fashion. The skin overlying the each palpable mass was anesthetized with 0.25% marcaine with epinephrine. A longitudinal incision was made over each of the extremity masses (The left groin incision was made transversely along the long axis of the mass) and carried into the subcutaneous tissue, then each mass was completely excised from surrounding tissues using mostly just blunt dissection with some sharp dissection. These all easily popped out from the surrounding subcutaneous tissue, and had a well circumscribedfatty appearance, were then passed off the field as specimens. Hemostasis was maintained throughout with electrocautery. For each wound closure, the subcutaneous tissue was closed with interrupted 3-0 Vicryl sutures and the skin was closed with 4-0 Vicryl subcuticular suture and Steristrips. The patient was then repositioned prone on the operating room table with bumps and padding. the backwas then prepped and draped in standard sterile fashion. A transverse incision was made over each ofthe lipomas and extended into the subcutaneous tissue. These masses were each slightly more spiculated than the other lipomas and were removed in pieces and passed of the field for routine pathology. For each wound closure this was done with interrupted 3-0 Vicryl sutures and Steristrips. The patient tolerated the procedure well. Sponge and needle counts were correct at the end of the case. Lesly Celaya MD ITY CONTROL LAB TECH documented in this encounter Plan of Treatment Upcoming Encounters Date Type Specialty Care Team Description 09/26/2022 Appointment Speech Therapy Obdulio Barrera MD [address] [facility] [address] [place], [place] [address] Anabel Chew, LEAD GENERATION REPRESENTATIVE [address] [place], [place] [address] 09/27/2022 Therapy Visit Physical Therapy Luisana Watkins, PT [address] [place] [address] 09/29/2022 Virtual Visit Pain & Palliative Marilia Deluna Care PhD [address] [place] [address] 09/30/2022 Office Visit Family Practice Aydee Burton, COMMERCIAL LINES UNDERWRITER FURNACE PUNCHER [address] [place] [address] 10/03/2022 Therapy Visit Physical Therapy Una Reardon, PT [address] [place] [address] 10/10/2022 Hospital Encounter Surgery Lesly Celaya MD [address] [place] [address] 10/10/2022 Office Visit Surgery Lesly Cleaya MD [address] [place] [address] Ninoska Flowers, PHILIPPE [address] [place], [place] [phone] 10/10/2022 Surgery Surgery Lesly Celaya, EXCISION, MASSES - MD back, abdomen, [address] extremity [place], [place] [phone] 10/11/2022 Virtual Visit Clari Su, [facility] [address] [id number] [place], [place] [phone] 10/14/2022 Appointment Speech Therapy Anabel Chew, LEAD GENERATION REPRESENTATIVE [facility] [address] [facility] [address] [place], [place] [address] 10/21/2022 Office Visit Pulmonology Obdulio Barrera MD [address] [facility] [address] [place], [place] [phone] 10/25/2022 PRE VISIT ENT Charo Burton MD Previsit [address] [place], [place] [phone] 10/25/2022 Office Visit ENT Charo Burton MD [address] [place], [place] [phone] 10/25/2022 Office Visit ENT Provider, Jeannette Ent Dysphonia Field Attendant 10/28/2022 Appointment Speech Therapy Anabel Chew, LEAD GENERATION REPRESENTATIVE [address] [phone] 11/17/2022 Appointment Speech Therapy Anabel Chew, LEAD GENERATION REPRESENTATIVE [address] [id number] 12/23/2022 Office Visit Neurology Colby Yeung MD [address] [place] [place] [id number] Scheduled Procedures Name Priority Associated Diagnoses Date/Time EXCISION, MASS, TORSO Lipoma of skin and subcuta neous 10/10/2022 7:30 AM QUALITY CONTROL LAB TECH tissue documented as of this encounter Procedures Procedure Name Priority Date/Time Associated Diagnosis Comme [facility] SURGICAL PATHOLOGY Routine 10/12/2021 1:55 PM Res ults for this EXAM QUALITY CONTROL LAB TECH procedure are i n the results section. EXCISION, MASS, 10/12/2021 12:55 Lipoma of skin and BACK PM QUALITY CONTROL LAB TECH subcutaneous tissue GLUCOSE BY METER Routine 10/12/2021 11:22 Results for this AM QUALITY CONTROL LAB TECH procedure are i n the results section. documented in this encounter Results Surgical Pathology Exam (10/12/2021 1:55 PM QUALITY CONTROL LAB TECH) Component Value Ref Test Analysis Performed At [facility] Method Time Signature Case Report Surgical Pathology Report ? Case: [id number] ? 10/13/2021 Authorizing Provider: ??Lesly Leon MD ? Collected: ? 10/12/2021 01:55 PM ? 12:09 PM LABORATO RY Ordering Location: ? [facility] ?? Received: ?10/12/2021 03:23 PM ? QUALITY CONTROL LAB TECH ? Main OR ? Pathologist: ? Dhara Grant MD PhD ? Specimen: ?Thigh, Left, Multiple lipomas from bilateral upper legs, lower arms, and back ? Final A(1). Soft tissue, bilateral upper legs, lower a jony, and back, excision: 10/13/2021 RH Electronically Diagnosis -Mature fibroadipose tissue with capillary proliferation consistent with angiolipomas. 12:09 PM LABORATORY signed by DEVYN Grant MD PhD on 10/13/20 21 at 12:09 PM Clinical Soft tissue 10/13/2021 Information masses consistent 12:09 PM LABORATORY with lipomas from QUALITY CONTROL LAB TECH bilateral legs, lower arms, and back. Gross A(1). Thigh, Left, Multiple lipomas from bilateral upper legs, lower arms, and back: 10/13/2021 Description The specimen is received in formalin, labeled with the patient's name, medical record number and other identifying information designated multiple lipomas from bilateral upper legs, lower arms, and krystal 12:09 PM LABORATORY k. It consists of a 12.1 cm aggregate of focally disrupted and intact adipose tissue fragments. Sectioning the specimen reveals grossly unremarkable fat. Coffee Sampler sections are submitted in 4 cassettes. QUALITY CONTROL LAB TECH (FLORES Langley) Microscopic Microscopic 10/13/2021 Description examination was 12:09 PM LABORATORY performed. QUALITY CONTROL LAB TECH Performing The technical 10/13/2021 Labs component of this 12:09 PM LABORATORY testing was QUALITY CONTROL LAB TECH completed at [facility] Case Images 10/13/2021 RH 12:09 PM LABORATORY QUALITY CONTROL LAB TECH Specimen Anatomical Collection Method Collection Time Receive d Time (Source) Location / / Volume Laterality Tissue STRUCTURE OF LEFT 10/12/2021 1:55 PM 113 3:23 THIGH / Unknown QUALITY CONTROL LAB TECH PM QUALITY CONTROL LAB TECH Lesly Celaya MD LAB - [facility] AP Performing Organization Address City/State/ZIP Code [place] [phone] [facility] [address] Lab (1st floor, no room number) Glucose by meter (10/12/2021 11:22 AM QUALITY CONTROL LAB TECH) athologist Signature GLUCOSE BY 92 70 - 99 10/12/2021 LABORATORY METER POCT mg/dL 11:28 AM QUALITY CONTROL LAB TECH POC Specimen Anatomical Collection Method Collection Time Receive d Time (Source) Location / / Volume Laterality Blood BLOOD SPECIMEN / 10/12/2021 11:22 10/12/2 021 Unknown AM QUALITY CONTROL LAB TECH 11:28 AM QUALITY CONTROL LAB TECH Lesly BREAUX - [facility] POCT Performing Organization Address City/State/ZIP Code Phon [place] [address] Care [facility] [address] Lab (1st floor, no room number) documented in this encounter Visit Diagnoses Diagnosis Lipoma of torso - Primary Lipoma of skin and subcutaneous tissue Lipoma of other skin and subcutaneous ti ssue documented in this encounter Administered Medications Inactive Administered Medications - up to 3 most recent administrations Medication Order MAR Action Action Date Dose Rate Site ePHEDrine injection 25 mg Given 10/12/2021 4:10 PM QUALITY CONTROL LAB TECH 25 mg 25 mg, Intramuscular, ONCE, On Mon10/12/21 at 1630, For 1 dose, PACU/Phase II fentaNYL (PF) (SUBLIMAZE) injection 25 m cg 25 mcg, Intravenous, EVERY 15 MIN PRN, other, acute pa in while in Phase II, Starting on Mon10/12/21 at 1529, Up to a total of 100 mcg. Use as a short acting IV agent for acute pain control. Patient must be monitored a minimum of 30 minutes before leaving the facility and meet all Phase II disc harge criteria., Phase ll lactated ringers infusion New Bag 10/12/2021 4:17 PM QUALITY CONTROL LAB TECH 100 mL/hr at 100 mL/hr, Intravenous, CONTINUOUS, Continue until IV catheter is weaned, PACU/Phase II, Starting on Mon10/12/21 at 1530, Until Mon10/12/21 at 1930 meperidine (DEMEROL) injection 12.5 mg 12.5 mg, Intravenous, EVERY 15 MIN PRN, post anesthesia shivering, Starting on Mon10/12/21 at 1529, For 2 doses, PACU/Phase II ondansetron (ZOFRAN) injection 4 mg Given 10/12/2021 3:44 PM QUALITY CONTROL LAB TECH 4 mg 4 mg, Intravenous, EVERY 30 MIN PRN, nausea, Administer over 2-5 Minutes, Starting on Mon10/12/21 at 1529, For 2 doses, MAX total dose = 8 mg, including OR dosing. If not resolved in 15 minutes, then go to step 2 [prochlorperazine (COMPAZINE), if ordered]. Irritant., PACU/Phase II ondansetron (ZOFRAN-ODT) ODT tab 4 mg 4 mg, Oral, EVERY 30 MIN PRN, nausea, Starting on Mon10/12/21 at 1529, For 2 doses, MAX total dose = 8 mg, including OR dosing. If not resolved in 15 minutes, then go to step 2 [prochlorperazine (COM PAZINE), if ordered]. With dry hands, peel back foil backing and gently remove tabl et. Do not push oral disintegrating tablet through foil backing. Administer immediately on tongue and oral disintegrating tablet dissolves in seconds, then swallow with saliva. Liquid not required., PACU/Phase II oxyCODONE (ROXICODONE) tablet 5 mg 5 mg, Oral, EVERY 4 HOURS PRN, moderate to severe pain, Starting on Mon10/12/21 at 1529, Max: 5 mg for opioid-na??ve patient., PACU/Phase II promethazine (PHENERGAN) intraMUSCULAR Given 10/12/2021 4:11 PM QUALITY CONTROL LAB TECH 25 mg injection 25 mg 25 mg, Intramuscular, ONCE, On Mon10/12/21 at 1630, For 1 dose, Preferred route of administration; administer as a deep IM injection. May cause pain at injection site., PACU/Phase II documented in this encounter Active and Recently Administered Medications Times are shown in QUALITY CONTROL LAB TECH. Scheduled Medication Order 10/10/2021 10/11/2021 10/12/2021 bupivacaine 0.25 % - EPINEPHrine 1:200,000 (PF) injection 75 mg 1330 (Canceled Entry - Provider: Orders Generic Provider - Comment: Automatically canceled at discontinue of medication order) 75 mg (30 mL), Intradermal, ONCE, On Mon10/12/21 at 1330, For 1 dose, Intrapartum ePHEDrine injection 25 mg (COMPLETED) 1610 (Given - Provider: Kristy Ramos RN) 25 mg, Intramuscular, ONCE, On Mon10/12/21 at 1630, For 1 d ose, PACU/Phase II promethazine (PHENERGAN) intraMUSCULAR injection 25 mg (COMPLETE D) 161 (Given - Provider: Kristy Ramos RN) 25 mg, Intramuscular, ONCE, On 10/12 at 1630, For 1 dose, Preferred route of administration; administer as a deep IM injection. May cause pain at injection site., PACU/Phase II Continuous Medication Order 10/10/2021 10/11/2021 10/12/2021 lactated ringers infusion 1617 ( New Bag - Provider: Florence Pham, AMINAH) at 100 mL/hr, Intravenous, CONTINUOUS, C ontinue until IV catheter is weaned, PACU/Phase II, Starting on Mon10/12/21 at 1530, Until Mon10/12/21 at 1930 PRE OP antibiotics NOT needed for this surgical procedure. (CANC ELED) 1312 (Given - Provider: Ni Landry APRN CRNA) CONTINUOUS, Starting on Mon10/12/21 at 1200, Until Mon10/12/21 at 1516, PRE OP antibiotics NOT needed for this surgical procedure., Pre-procedure PRN Medication Order 10/10/2021 10/11/2021 10/12/2021 acetaminophen (TYLENOL) tablet 650 mg 650 mg, Oral, ONCE PRN, mild pain, to mo derate pain, Starting on Mon10/12/21 at 1528, One time prior to discharge. Maximum acetaminophen dose from all sources = 75 mg/kg/day not to exceed 4 grams/day. bupivacaine 0.25 % - EPINEPHrine 1:200,000 (PF) injection (CANCE LED) 1442 (Given - Provider: Lesly Celaya MD) PRN, Starting on Mon10/12/21 at 1442, Intra-procedure fentaNYL (PF) (SUBLIMAZE) injection 25 mcg 25 mcg, Intravenous, EVERY 15 MIN PRN, o ther, acute pain while in Phase II, Starting on Mon10/12/21 at 1529, Up to a total of 100 mcg. Use as a short acting IV agent for acute pain control. Patient mus t be monitored a minimum of 30 minutes b efore leaving the facility and meet all Phase II discharge criteria., Phase ll meperidine (DEMEROL) injection 12.5 mg 12.5 mg, Intravenous, EVERY 15 MIN PRN, post anesthesia shivering, Starting on Mon10/12/21 at 1529, For 2 doses, PACU/Phase II ondansetron (ZOFRAN) injection 4 mg(Linked Group 1) 1544 (Given - Provider: Kristy Ramos RN) 4 mg, Intravenous, EVERY 30 MIN PRN, jorge sea, Administer over 2-5 Minutes, Starting on Mon10/12/21 at 1529, For 2 doses, MAX total dose = 8 mg, including OR dosing. If not resolved in 15 minutes, then g o to step 2 [prochlorperazine (COMPAZINE ), if ordered]. Irritant., PACU/Phase II ondansetron (ZOFRAN-ODT) ODT tab 4 mg(Linked Group 1) 1544 (See Alternative - Provider: Kristy Ramos, AMINAH) 4 mg, Oral, EVERY 30 MIN PRN, nausea, St arting on Mon10/12/21 at 1529, For 2 doses, MAX total dose = 8 mg, including OR dosing. If not resolved in 15 minutes, then go to step 2 [prochlorperazine (MANUEL ZINE), if ordered]. With dry hands, peel back foil backing and gently remove tablet. Do not push oral disintegrating tablet through foil backing. Administer immediately on tongue and oral disintegrating tablet dissolves in seconds, then swall ow with saliva. Liquid not required., PACU/Phase II oxyCODONE (ROXICODONE) tablet 5 mg 5 mg, Oral, EVERY 4 HOURS PRN, moderate to severe pain, Starting on Mon10/12/21 at 1529, Max: 5 mg for opioid-na??ve patient., PACU/Phase II sodium chloride 0.9% (bottle) irrigation (CANCELED) 1442 (Given - Provider: Lesly Celaya MD) PRN, Starting on Mon10/12/21 at 1442, Intra-procedure Linked Groups Order Group 1: ondansetron (ZOFRAN-ODT) ODT tab 4 mgJump to med 4 mg, Oral, EVERY 30 MIN PRN, nausea, St arting on Mon10/12/21 at 1529, For 2 doses
MAX total dose = 8 mg, including OR dosing. If not resolved in 15 minutes, then go to step 2 [prochlorperazin e (COMPAZINE), if ordered]. With dr y hands, peel back foil backing and gently remove tablet. Do not push oral disintegrating tablet through foil backing. Administer immediately on tongue and or al disintegrating tablet dissolves in se conds, then swallow with saliva. Liquid not required.
PACU/Phase II Or ondansetron (ZOFRAN) injection 4 mgJump to med 4 mg, Intravenous, EVERY 30 MIN PRN, jorge sea, Administer over 2-5 Minutes, Starting on Mon10/12/21 at 1529, For 2 doses
MAX total dose = 8 mg, including OR dosing. If not resolved in 15 minutes , then go to step 2 [prochlorperazine (C OMPAZINE), if ordered]. Irritant.
PACU/Phase II documented in this encounter Additional Health Concerns Assessment Noted Time PHQ-9 Depression Total Score: 22 06/28/2021 7:03 AM CD T documented as of this encounter Care Teams Virtual Recruiter Relationship Specialty Start Date End Date Aydee Burton, PCP - General Nurse Practitioner - 05/17/21 COMMERCIAL LINES UNDERWRITER FURNACE PUNCHER Family [address] [place], [place] [id number] Aydee Burton, Assigned PCP 04/28/21 COMMERCIAL LINES UNDERWRITER FURNACE PUNCHER [address] [place], [place] [phone] Louisa Hood, Assigned Neuroscience 07/11/21 COMMERCIAL LINES UNDERWRITER FURNACE PUNCHER Provider [address] [place], [place] [phone] Se Levy, Lead Pickers Material Handlers 08/05/21 05/12/22 SUPERVISOR DRYING AND WINDINGClari Ordonez Pharmacist Pharmacist 08/06/21 06/07/22 [facility] [address] [place], [place] [phone] [place], Assigned Sleep 08/01/21 Angel Turcios, Provider [address] [place] [address] Lesly Celaya MD Assigned Surgical 09/05/[address] Provider [place], [place] [phone] Elizabeth Mcintyre CNM Assigned OBGYN 09/05/21 11/06/[address] Provider [place], [place] [phone] Tawana Patel MA [facility] 09/30/21 Worker Mago Swift [facility] Lead Pickers Material Handlers Open Hearth Worker - 08/05/21 Clinical documented as of this encounter
--- OUTSIDE RECORDS SUMMARY | 2022-09-21 04:15 | XMS_ITS | Encounter Summary ---
:1980 Author Organization [place] Address [address] [facility] [address] Care Team Providers Name Role Phone Aydee Burton LINE ASSEMBLY UTILITY WORKER PLASTIC FABRICATOR Primary Care Provider Aydee Burton APRN PLASTIC FABRICATOR Unavailable [phone] Louisa Hood LINE ASSEMBLY UTILITY WORKER PLASTIC FABRICATOR Unavailable [phone] Se Levy STRIP CATCHER Unavailable Unavailable Clari Ruiz [facility] Unavailable Angel Hannah MD Unavailable Lesly Celaya MD Unavailable Elizabeth Mcintyre [facility] Unavailable Tawana Patel MA Unavailable Unavailable Ramses Mcpherson MD Unavailable [phone] Mago Swift TANK HOUSE SUPERVISOR Unavailable Encounter Details Date Type Department Care Team Description 10/15/2021 Medical Correspondence [facility] Scan, PAIN MANAGEMENT Health Info Mgmt Non-Provider PATIENT QUE EVARISTO [facility] [address] [place] [address] Social History Tobacco Use Types Packs/Day [...] How often do you attend samaritan or orthodox services? Never 08/05/2021 Do you [...] at Date Recorded Female 11/09/2021 7:53 PM OVERHEAD CRANE INSPECTOR COVID-19 Exposure Response Date Recorded In the last month, have you been in contact with No / Unsure 01/07/2022 2:29 PM OVERHEAD CRANE INSPECTOR someone who was confirmed or suspected to have Coronavirus / COVID-19? documented as of this encounter Plan of Treatment Upcoming Encounters Date Type Specialty Care Team Description 09/26/2022 Appointment Speech Therapy Obdulio Barrera MD [address] [facility] [address] [place] [address] Anabel Chew FUNDING ANALYST [place] [address] [facility] [address] [place] [address] 09/27/2022 Therapy Visit Physical Therapy Luisana Watkins, PT [address] [place] [address] 09/29/2022 Virtual Visit Pain & Palliative Marilia Deluna, [facility] PhD [address] [place], [place] [phone] 09/30/2022 Office Visit Family Practice Aydee Burton, LINE ASSEMBLY UTILITY WORKER PLASTIC FABRICATOR [address] [place], [place] [address] 10/03/2022 Therapy Visit Physical Therapy Una Reardon, PT [address] [place] [address] 10/10/2022 Hospital Encounter Surgery Lesly Celaya MD [address] [place] [address] 10/10/2022 Office Visit Surgery Lesly Celaya MD [address] [place] [address] Ninoska Flowers PA-Ynes [address] [place] [address] 10/10/2022 Surgery Surgery Lesly Celaya, EXCISION, MASSES - MD back, abdomen, [address] [place] [address] 10/11/2022 Virtual Visit Clari Su, [facility] [address] [place] [id number] [place] [address] 10/14/2022 Appointment Speech Therapy Anabel Chew, FUNDING ANALYST [facility] [address] [facility] [address] [place] [address] 10/21/2022 Office Visit Pulmonology Obdulio Barrera MD [address] [facility] [address] [place], [place] [address] 10/25/2022 PRE VISIT ENT Charo Burton MD Previsit [address] [place], [place] [address] 10/25/2022 Office Visit ENT Charo Burton MD [address] [place], [place] [address] 10/25/2022 Office Visit ENT Provider, Jeannette Ent Dysphonia Director Veterinary 10/28/2022 Appointment Speech Therapy Anabel Chew, FUNDING ANALYST [address] [place] [address] 11/17/2022 Appointment Speech Therapy Anabel Chew, FUNDING ANALYST [address] [place] [address] 12/23/2022 Office Visit Neurology Colby Yeung MD [address] [id number] Scheduled Procedures Name Priority Associated Diagnoses Date/Time EXCISION, MASS, TORSO Lipoma of skin and subcuta neous 10/10/2022 7:30 AM OVERHEAD CRANE INSPECTOR tissue documented as of this encounter Visit Diagnoses Not on filedocumented in this encounter Additional Health Concerns Assessment Noted Time PHQ-9 Depression Total Score: 22 06/28/2021 7:03 AM CD T documented as of this encounter Care Teams Ordnance Truck Installation Mechanic Relationship Specialty Start Date End Date Aydee Burton, PCP - General Nurse Practitioner - 05/17/21 LINE ASSEMBLY UTILITY WORKER PLASTIC FABRICATOR Family [address] [place] [phone] Aydee Burton, Assigned PCP 04/28/21 LINE ASSEMBLY UTILITY WORKER PLASTIC FABRICATOR [address] [place], [place] [phone] Erwin Louisa Denise, Assigned Neuroscience 07/11/21 LINE ASSEMBLY UTILITY WORKER PLASTIC FABRICATOR Provider [address] [place], [place] [phone] Se Levy, Lead Pediatric Physical Therapist 08/05/21 05/12/22 STRIP CATCHER Clari Ruiz Pharmacist Pharmacist 08/06/21 06/07/22 [facility] [address] [place], [place] [phone] [place], Assigned Sleep 08/01/21 Angel Turcios, Provider [address] [place], [place] [phone] Lesly Celaya MD Assigned Surgical 09/05/[address] Provider [place], [place] [phone] Elizabeth Mcintyre CNM Assigned OBGYN 09/05/21 11/06/[address] Provider [place], [place] [phone] Tawana Patel MA [facility] 09/30/21 Worker Ramses Mcpherson Assigned OBGYN 11/07/21 MD [place] Provider [address] [place] [address] Mago Swift, [facility] Lead Pediatric Physical Therapist Product Support Sales Representative - 08/05/21 Clinical documented as of this encounter
--- OUTSIDE RECORDS SUMMARY | 2022-09-21 04:15 | XMS_ITS | Encounter Summary ---
:1980 Author Organization [place] Address [address] [place] [address] Care Team Providers Name Role Phone Aydee Burton MAKE UP GIRL UMBRELLA REPAIRER Primary Care Provider [phone] Aydee Burton MAKE UP GIRL UMBRELLA REPAIRER Unavailable [phone] Louisa Hood MAKE UP GIRL UMBRELLA REPAIRER Unavailable [phone] Se Levy HEAD OF MERCHANDISE BUYING Unavailable Unavailable Clari Ruiz [facility] Unavailable [phone] Angel Hannah MD Unavailable Lesly Celaya MD Unavailable Elizabeth Mcintyre [facility] Unavailable Tawana Patel MA Unavailable Unavailable Mago Swift LOW ALTITUDE AIR DEFENSE OFFICER Unavailable Encounter Details Date Type Department Care Team Description 10/06/2021 Travel Social History Tobacco Use Types Packs/Day [...] How often do you attend jain or buddhism services? Never 08/05/2021 Do you [...] at Date Recorded Female 11/09/2021 7:53 PM MATERIAL CHECKER COVID-19 Exposure Response Date Recorded In the last month, have you been in contact with No / Unsure 10/06/2021 3:19 PM MATERIAL CHECKER someone who was confirmed or suspected to have Coronavirus / COVID-19? documented as of this encounter Plan of Treatment Upcoming Encounters Date Type Specialty Care Team Description 09/26/2022 Appointment Speech Therapy Obdulio Barrera MD [address] [facility] [address] [place], [place] [address] Anabel Chew BRAKESHOE REPAIRER [address] [place], [place] [address] 09/27/2022 Therapy Visit Physical Therapy Luisana Watkins, PT [address] [place] [address] 09/29/2022 Virtual Visit Pain & Palliative Marilia Deluna, [facility] PhD [address] [facility] [place] [address] 09/30/2022 Office Visit Family Practice Aydee Burton, MAKE UP GIRL UMBRELLA REPAIRER [address] [place], [place] [phone] 10/03/2022 Therapy Visit Physical Therapy David-Una Tang, PT [address] [place] [address] 10/10/2022 Hospital Encounter Surgery Lesly Celaya MD [address] [place] [address] 10/10/2022 Office Visit Surgery Lesly Celaya MD [address] [place] [address] Ninoska Flowers PA-Ynes [address] [place] [address] 10/10/2022 Surgery Surgery Lesly Celaya, EXCISION, MASSES - MD back, abdomen, [address] [place] [address] 10/11/2022 Virtual Visit Pharm Clari Stoll, [facility] [address] [phone] [place], [place] [address] 10/14/2022 Appointment Speech Therapy Anabel Chew, BRAKESHOE REPAIRER [facility] [address] [facility] [address] [place] [address] 10/21/2022 Office Visit Pulmonology Obdulio Barrera MD [address] [facility] [address] [place] [address] 10/25/2022 PRE VISIT ENT Charo Burton MD Previsit [address] [place] [address] 10/25/2022 Office Visit ENT Charo Burton MD [address] [place] [address] 10/25/2022 Office Visit ENT Provider, Ent Dysphonia Director Of Therapy Services 10/28/2022 Appointment Speech Therapy Anabel Chew, BRAKESHOE REPAIRER [address] [address] 11/17/2022 Appointment Speech Therapy Anabel Chew, BRAKESHOE REPAIRER [address] [address] 12/23/2022 Office Visit Neurology Colby Yeung MD [address] [address] Scheduled Procedures Name Priority Associated Diagnoses Date/Time EXCISION, MASS, TORSO Lipoma of skin and subcuta neous 10/10/2022 7:30 AM MATERIAL CHECKER tissue documented as of this encounter Visit Diagnoses Not on filedocumented in this encounter Additional Health Concerns Assessment Noted Time PHQ-9 Depression Total Score: 22 06/28/2021 7:03 AM CD T documented as of this encounter Care Teams Private Wealth Advisor Relationship Specialty Start Date End Date Ayede Burton, PCP - General Nurse Practitioner - 05/17/21 MAKE UP GIRL UMBRELLA REPAIRER Family [address] [place] [phone] Aydee Burton, Assigned PCP 04/28/21 MAKE UP GIRL [facility] [address] [place], [place] [phone] Louisa Hood, Assigned Neuroscience 07/11/21 MAKE UP GIRL UMBRELLA REPAIRER Provider [address] [place] [address] Se Levy, Lead Receivable Manager 08/05/21 05/12/22 HEAD OF MERCHANDISE BUYING Clari Ruiz Pharmacist Pharmacist 08/06/21 06/07/22 [facility] [address] [place] [address] [place], Assigned Sleep 08/01/21 Angel Turcios, Provider [address] [place] [address] Lesly Celaya MD Assigned Surgical 09/05/[address] [place] [address] Elizabeth Mcintyre CNM Assigned OBGYN 09/05/21 11/06/[address] [place] [address] Tawana Patel MA [facility] 09/30/21 Worker Mago Swift [facility] Lead Receivable Manager Manager Freelance - 08/05/21 Clinical documented as of this encounter
--- OUTSIDE RECORDS SUMMARY | 2022-09-21 04:15 | XMS_ITS | Encounter Summary ---
:1980 Author Organization [place] Address [address] [place] [address] Care Team Providers Name Role Phone Aydee Burton VISUAL TRAINING AIDE DINING ROOM MANAGER Primary Care Provider [phone] Aydee Burton VISUAL TRAINING AIDE DINING ROOM MANAGER Unavailable [phone] Louisa Hood VISUAL TRAINING AIDE DINING ROOM MANAGER Unavailable [phone] Se Levy DESIGN PAINTER Unavailable Unavailable Clari Ruiz [facility] Unavailable Angel Hannah MD Unavailable Lesly Celaya MD Unavailable Elizabeth Mcintyre CN Unavailable Tawana Patel MA Unavailable Unavailable Mago Swift DATA CENTER OPERATOR Unavailable Reason for Visit Auth/Cert Specialty Diagnoses [...] SKIN LESION TRUNK/ARM/LEG 2.1-3.[address] HC EXC BENIGN SKIN LESION TR UNK/ARM/LEG 3.1-4.0 CM HC EXC BENIGN SKIN LESION TRUNK/ARM/LEG >4 CM HC EXC MALIG SKIN LESION TRUNK/ARM/LEG <=0.5 CM HC EXC MALIG SKIN LESION TRUNK/ARM/LEG 0.6-1.0 CM HC EXC MALIG SKIN LESION TRUNK/ARM/LEG 1.1-2[place]0 [place] [address] HC EXC MALIG SKIN LESION SUSANA NK/ARM/LEG [...] Expiration Date Visits Requ ested Visits Authorized [id number] 1 1 Encounter Details Date Type Department Care Team Description 10/12/2021 Surgery [facility] Maggy Celaya MD EXCISION MULTIPLE [facility] [address] LIPOMAS - bilateral [address] [place] [address] legs, arms and trunk [place] [phone] (Wo rk) [address] [phone] Surgery Details Date/Time Status Location OR Service Patient Case Class Case Type Trauma Class Case? 10/12/21 12:40 Posted [facility] OR OR 08 General Same Day PM Surgery Panel 1 Procedure LRB Anes Op Region Wound Class Commen ts EXCISION MULTIPLE LIPOMAS - bilateral N/A General Back I-Clean legs, arms and trunk Surgeon Surgeon Role Service Panel Lesly Celaya MD Primary General 1 Mario Castellon PA-C Assisting Broadcast Operations Director Autho rization 1 documented in this encounter Social History [...] How often do you attend hindu or faith services? Never 08/05/2021 Do you belong to [...] at Date Recorded Female 11/09/2021 7:53 PM ASSEM[employer]ER [employer] COVID-19 Exposure Response Date Recorded In the last month, have you been in contact with No / Unsure 10/12/2021 10:55 AM [employer] someone who was confirmed or suspected to have Coronavirus / COVID-19? documented as of this encounter Last Filed Vital Signs Vital Sign Reading Time Taken Comments Blood Pressure 114/73 10/12/2021 11:16 AM [employer] Pulse 98 10/12/2021 11:16 AM [employer] Temperature 36.5 ??C (97.7 ??F) 10/12/2021 11:16 AM [employer] Respiratory Rate 16 10/12/2021 12:00 PM [employer] Oxygen Saturation 98% 10/12/2021 11:16 AM [employer]MENT Inhaled Oxygen Concentration - - Weight 93 kg (205 lb) 10/12/2021 11:16 AM [employer] Height 170.2 cm (5' 7) 10/12/2021 11:16 AM [employer] Body Mass Index 32.11 10/12/2021 11:16 AM [employer] documented in this encounter Discharge Instructions Discharge InstructionsAngela Ramos RN - 10/12/2021 5:00 PM [employer] HOME CARE FOLLOWING MINOR SURGERY Rocío Alvarez, Roxana Guy, R. O???Ivelisse Greco RESULTS: If a biopsy of tissue [...] the above pain medication only as needed. Szij-szl-lvlaedu anti-inflammatory medications (i.e. Ibuprofen/Advil/Motrin or Naprosyn/Aleve) may [...] to be seen, please call us at [phone]. [facility] at: [address] [address]; [place] [address] -CONTACT US IF THE FOLLOWING DEVELOPS: 1. [...] Walk around frequently. You may consider an kwoc-vdi-gyfarjj stool-softener. Your Pharmacist can assist you with [...] to discuss with the nurse or physician operations and intelligence assistant. # There is a surgeon POCKET BUILDER on weekday evenings and over the weekend [...] STILL NOT ABLE TO URINATE (PASS WATER). [employer] documented in this encounter Medications at Time [...] ELDERBERRY PO Take 100 mg by 0 01/28/2 022 mouth daily gabapentin (NEURONTIN) Take 1 [...] thigh x 2 Surgeon: Lesly Celaya MD Broadcast Operations Director(s): Mario Castellon PA-C and Jonah Mckeon MS3 [...] end of the case. Lesly Celaya MD [employer] documented in this encounter Plan of Treatment Upcoming Encounters Date Type Specialty Care Team Description 09/26/2022 Appointment Speech Therapy Obdulio Barrera MD [address] [facility] [address] [place], [place] [address] Anabel Chew S[place] [id number] [facility] [address] [place], [place] [address] 09/27/2022 Therapy Visit Physical Therapy Luisana Watkins, PT [address] [place] [address] 09/29/2022 Virtual Visit Pain & Palliative Marilia Deluna, [facility] PhD [address] [place] [address] 09/30/2022 Office Visit Family Practice Burton Aydee Mendez, VISUAL TRAINING AIDE DINING ROOM MANAGER [address] [place], [place] [phone] 10/03/2022 Therapy Visit Physical Therapy Una Reardon, PT [address] [place] [phone] 10/10/2022 Hospital Encounter Surgery Lesly Celaya MD [address] [place], [place] [phone] 10/10/2022 Office Visit Surgery Lesly Celaya MD [address] [place], [place] [phone] Ninoska Flowers PA-C [address] [facility] [address] [place] [address] 10/10/2022 Surgery Surgery Lesly Celaya, EXCISION, MASSES - MD back, abdomen, [address] right lower [facility] extremity [place], [place] [phone] 10/11/2022 Virtual Visit Clari Su, [facility] [address] [phone] [place] [address] 10/14/2022 Appointment Speech Therapy Anabel Chew, PIPE FITTER FIRE SPRINKLER SYSTEMS [facility] [address] [facility] [address] [place] [address] 10/21/2022 Office Visit Pulmonology Obdulio Barrera MD [address] [facility] [address] [place], [place] [address] 10/25/2022 PRE VISIT ENT Charo Burton MD Previsit [address] [place], [place] [address] 10/25/2022 Office Visit ENT Charo Burton MD [address] [place], [place] [address] 10/25/2022 Office Visit ENT Provider, Ent Dysphonia Hammerer 10/28/2022 Appointment Speech Therapy Anabel Chew, PIPE FITTER [employer] [address] [place], [place] [address] 11/17/2022 Appointment Speech Therapy Anabel Chew, PIPE FITTER [employer] [address] [place] [address] 12/23/2022 Office Visit Neurology Colby Yeung MD [address] [place] [address] Scheduled Procedures Name Priority Associated Diagnoses Date/Time EXCISION, MASS, TORSO Lipoma of skin and subcuta neous 10/10/2022 7:30 AM [employer] tissue documented as of this encounter Procedures Procedure Name Priority Date/Time Associated Diagnosis Comme nts SURGICAL PATHOLOGY Routine 10/12/2021 1:55 PM Res ults for this EXAM [employer] procedure are i n the results section. EXCISION, MASS, 10/12/2021 12:55 Lipoma of skin and BACK PM [employer] subcutaneous tissue GLUCOSE BY METER Routine 10/12/2021 11:22 Results for this AM [employer] procedure are i n the results section. documented in this encounter Results Surgical Pathology Exam (10/12/2021 1:55 PM [employer]) Component Value Ref Test Analysis Performed At Patholo gist Range Method Time Signature Case Report Surgical Pathology Report ? Case: [id number] ? 10/13/2021 Authorizing Provider: ??Lesly Leon MD ? Collected: ? 10/12/2021 01:55 PM ? 12:09 PM LABORATO RY Ordering Location: ? [facility] ?? Received: ?10/12/2021 03:23 PM ? [employer] ? Main OR ? Pathologist: ? Dhara Grant MD PhD ? Specimen: ?Thigh, Left, Multiple lipomas from bilateral upper legs, lower arms, and back ? Final A(1). 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 12:09 PM LABORATORY signed by DEVYN Grant MD PhD on 10/13/20 21 at 12:09 PM Clinical Soft tissue 10/13/2021 Information masses consistent 12:09 PM LABORATORY with lipomas from [employer] bilateral legs, lower arms, and back. Gross A(1). Thigh, Left, Multiple lipomas from bilateral upper legs, lower arms, and back: 10/13/2021 RH Description The specimen is received in formalin, labeled with the patient's name, medical record number and other identifying information designated multiple lipomas from bilateral upper legs, lower arms, and krystal 12:09 PM LABORATORY k. It consists of a 12.1 cm aggregate of focally disrupted and intact adipose tissue fragments. Sectioning the specimen reveals grossly unremarkable fat. Senior Stock Plan Administrator sections are submitted in 4 cassettes. [employer] (FLORES Langley) Microscopic Microscopic 10/13/2021 Description examination was 12:09 PM LABORATORY performed. [employer] Performing The technical 10/13/2021 Labs component of this 12:09 PM LABORATORY testing was [employer] completed at [facility] Laboratory Case Images 10/13/2021 12:09 PM LABORATORY [employer] Specimen Anatomical Collection Method Collection Time Receive d Time (Source) Location / / Volume Laterality Tissue STRUCTURE OF LEFT 10/12/2021 1:55 PM 11 3:23 THIGH / Unknown [employer] PM [employer] Lesly TALBOT AP Performing Organization Address City/State/ZIP Code [place] [phone] Care Lab [address] Lab (1st floor, no room number) Glucose by meter (10/12/2021 11:22 AM [employer]) athologist Signature GLUCOSE BY 92 70 - 99 10/12/2021 LABORATORY METER POCT mg/dL 11:28 AM [employer] POC Specimen Anatomical Collection Method Collection Time Receive d Time (Source) Location / / Volume Laterality Blood BLOOD SPECIMEN / 10/12/2021 11:22 11/2 021 Unknown AM [employer] 11:28 AM [employer]MENT Lesly TALBOT POCT Performing Organization Address City/State/ZIP Code Phon [place] Number [place] [address] Care Lab [address] Lab (1st floor, no room number) [...] Action Action Date Dose Rate Site bupivacaine 0.25 % - Given 10/12/2021 2:42 PM 30 mLs Operative EPINEPHrine 1:200,000 [employer] Sit e/Surgical Site (PF) injection PRN, Starting on Mon10/12/21 at 1442, Intra-procedure ePHEDrine injection 25 mg Given 10/12/2021 4:10 PM [employer] 25 mg 25 mg, Intramuscular, ONCE, On [...] ringers infusion New Bag 10/12/2021 4:17 PM [employer] 100 mL/hr at 100 mL/hr, Intravenous, CONTINUOUS, Continue until IV catheter is weaned, PACU/Phase II, Starting on Mon10/12/21 at 1530, Until Mon10/12/21 at 1930 meperidine (DEMEROL) injection 12.5 mg 12.5 mg, Intravenous, EVERY 15 MIN PRN, post anesthesia shivering, Starting on Mon10/12/21 at 1529, For 2 doses, PACU/Phase II ondansetron (ZOFRAN) injection 4 mg Given 10/12/2021 3:44 PM [employer] 4 mg 4 mg, Intravenous, EVERY 30 [...] promethazine (PHENERGAN) intraMUSCULAR Given 10/12/2021 4:11 PM [employer] 25 mg injection 25 mg 25 mg, Intramuscular, ONCE, On Mon10/12/21 at 1630, For 1 dose, Preferred route of administration; administer as a deep IM injection. May cause pain at injection site., PACU/Phase II sodium chloride 0.9% Given 10/12/2021 2:42 PM 200 mLs Operative Site/Surgical (bottle) irrigation [employer] Site PRN, Starting on Mon10/12/21 at 1442, Intra-procedure documented in this encounter Active and Recently Administered Medications Times are shown in [employer]. Scheduled Medication Order 10/10/2021 10/11/2021 10/12/2021 bupivacaine [...] (COMPLETE D) 161 (Given - Provider: Kristy Ramos, AMINAH) 25 mg, Intramuscular, ONCE, On 10/12 at [...] antibiotics NOT needed for this surgical procedure. ([facility]) 1312 (Given - Provider: Ni Landry [...] 1) 1544 (See Alternative - Provider: Kristy Ramos RN) 4 mg, Oral, EVERY 30 MIN [...] [prochlorperazin e (COMPAZINE), if ordered]. With dr omalley hands, peel back foil backing and gently [...] documented as of this encounter Care Teams Teasel Setter Relationship Specialty Start Date End Date Aydee Burton, PCP - General Nurse Practitioner - 05/17/21 VISUAL TRAINING AIDE DINING ROOM MANAGER Family [address] [place], [place] [phone] Aydee Burton, Assigned PCP 04/28/21 VISUAL TRAINING AIDE DINING ROOM MANAGER [address] [place], [place] [phone] Louisa Hood, Assigned Neuroscience 07/11/21 VISUAL TRAINING AIDE DINING ROOM MANAGER Provider [address] [place], [place] [address] Se Levy, Lead Jewelry Drilling Machine Operator 08/05/21 05/12/22 Clari Francois Pharmacist Pharmacist 08/06/21 06/07/22 Jocelyn [facility] [address] [phone] [place], [place] [phone] [place], Assigned Sleep 08/01/21 Angel Turcios, Provider [address] [place], [place] [address] Lesly Celaya MD Assigned Surgical 09/05/21 [address] Provider [place], [place] [address] Elizabeth Mcintyre CNM Assigned OBGYN 09/05/21 11/06/21 [address] Provider [place], [place] [phone] Tawana Patel MA [facility] 09/30/21 Worker Mago Swift LICSW Lead Jewelry Drilling Machine Operator Prescription Clerk Lenses - 08/05/21 Clinical documented as of this encounter
--- OUTSIDE RECORDS SUMMARY | 2022-09-21 04:15 | XMS_ITS | Encounter Summary ---
:1980 Author Organization [place] Address [address] [place] [address] Care Team Providers Name Role Phone Aydee Burton FOREST NURSERY WORKER PAPER FOLDER Primary Care Provider [phone] Aydee Burton FOREST NURSERY WORKER PAPER FOLDER Unavailable [phone] Louisa Hood FOREST NURSERY WORKER PAPER FOLDER Unavailable [phone] Se Levy CASHIER CREDIT Unavailable Unavailable Clari Ruiz [facility] Unavailable [phone] Angel Hannah MD Unavailable Lesly Celaya MD Unavailable Elizabeth Mcintyre [facility] Unavailable Tawana Patel MA Unavailable Unavailable Mago Swift APPRENTICE PLUMBER Unavailable Encounter Details Date Type Department Care Team Description 10/08/2021 Travel Social History Tobacco Use Types Packs/Day [...] How often do you attend yarsanism or evangelical services? Never 08/05/2021 Do you [...] at Date Recorded Female 11/09/2021 7:53 PM SPRING UPHOLSTERER COVID-19 Exposure Response Date Recorded In the last month, have you been in contact with No / Unsure 10/08/2021 11:08 AM SPRING UPHOLSTERER someone who was confirmed or suspected to have Coronavirus / COVID-19? documented as of this encounter Plan of Treatment Upcoming Encounters Date Type Specialty Care Team Description 09/26/2022 Appointment Speech Therapy Obdulio Barrera MD [address] [facility] 276 [place], [place] [address] Anabel Chew FORESTRY ENGINEER [address] [place], [place] [address] 09/27/2022 Therapy Visit Physical Therapy Luisana Watkins, PT [address] [place] [address] 09/29/2022 Virtual Visit Pain & Palliative Marilia Deluna, [facility] PhD [address] [place] [address] 09/30/2022 Office Visit Family Practice Aydee Burton, FOREST NURSERY WORKER PAPER FOLDER [address] [place], [place] [phone] 10/03/2022 Therapy Visit Physical Therapy David-Una Tang, PT [address] [place] [address] 10/10/2022 Hospital Encounter Surgery Lesly Celaya MD [address] [place] [address] 10/10/2022 Office Visit Surgery Lesly Celaya MD [address] [place] [address] Ninoska Flowers PA-Ynes [address] [place] [address] 10/10/2022 Surgery Surgery Lesly Celaya, EXCISION, MASSES - MD back, abdomen, [address] [place] [address] 10/11/2022 Virtual Visit Pharm Clari Stoll, [facility] [address] [phone] [place], [place] [address] 10/14/2022 Appointment Speech Therapy Anabel Chew, FORESTRY ENGINEER [facility] [address] [facility] 396 [place] [address] 10/21/2022 Office Visit Pulmonology Obdulio Barrera MD [address] [facility] [address] [place] [address] 10/25/2022 PRE VISIT ENT Charo Burton MD Previsit [address] [place] [address] 10/25/2022 Office Visit ENT Charo Burton MD [address] [place] [address] 10/25/2022 Office Visit ENT Provider, Ent Dysphonia Director Reactor Projects 10/28/2022 Appointment Speech Therapy Anabel Chew, FORESTRY ENGINEER [address] [address] 11/17/2022 Appointment Speech Therapy Anabel Chew, FORESTRY ENGINEER [address] [address] 12/23/2022 Office Visit Neurology Colby Yeung MD [address] [address] Scheduled Procedures Name Priority Associated Diagnoses Date/Time EXCISION, MASS, TORSO Lipoma of skin and subcuta neous 10/10/2022 7:30 AM SPRING UPHOLSTERER tissue documented as of this encounter Visit Diagnoses Not on filedocumented in this encounter Additional Health Concerns Assessment Noted Time PHQ-9 Depression Total Score: 22 06/28/2021 7:03 AM CD T documented as of this encounter Care Teams Commercial Ocean Clammer Relationship Specialty Start Date End Date Aydee Burton, PCP - General Nurse Practitioner - 05/17/21 FOREST NURSERY WORKER PAPER FOLDER Family [address] [place] [phone] Aydee Burton, Assigned PCP 04/28/21 FOREST NURSERY WORKER [facility] [address] [place], [place] [phone] Louisa Hood, Assigned Neuroscience 07/11/21 FOREST NURSERY WORKER PAPER FOLDER Provider [address] [place] [address] Se Levy, Lead Correctional Guard 08/05/21 05/12/22 CASHIER CREDIT Clari Ruiz Pharmacist Pharmacist 08/06/21 [facility]/07/[facility] [address] [place] [address] [place], Assigned Sleep 08/01/21 Angel Turcios, Provider [address] [place] [address] Lesly Celaya MD Assigned Surgical 09/05/[address] [place] [address] Elizabeth Mcintyre CNM Assigned OBGYN 09/05/21 11/06/[address] [place] [address] Tawana Patel MA [facility] 09/30/21 Worker Mago Swift [facility] Lead Correctional Guard Hydraulic Design Engineer - 08/05/21 Clinical documented as of this encounter
--- OUTSIDE RECORDS SUMMARY | 2022-09-21 04:15 | XMS_ITS | Encounter Summary ---
:1980 Author Organization [place] Address [address] [place] [address] Care Team Providers Name Role Phone Aydee Burton SECURITY INCIDENT HANDLER CAP INSPECTOR Primary Care Provider [phone] Aydee Burton SECURITY INCIDENT HANDLER CAP INSPECTOR Unavailable [phone] Louisa Hood SECURITY INCIDENT HANDLER CAP INSPECTOR Unavailable [phone] Se Levy CHIMNEY SUPERVISOR BRICK Unavailable Unavailable Clari Ruiz [facility] Unavailable Angel Hannah MD Unavailable Lesly Celaya MD Unavailable Elizabeth Mcintyre CN Unavailable Tawana Patel MA Unavailable Unavailable Mago Swift THERMOSPRAY OPERATOR Unavailable Reason for Visit Auth/Cert Specialty [...] SKIN LESION TRUNK/ARM/LEG 2.1-3.0 CM [address] [facility] HC EXC BENIGN SKIN LESION TR UNK/ARM/LEG 3.1-4.0 CM HC EXC BENIGN SKIN LESION TRUNK/ARM/LEG >4 CM HC EXC MALIG SKIN LESION TRUNK/ARM/LEG <=0.5 CM HC EXC MALIG SKIN LESION TRUNK/ARM/LEG 0.6-1.0 CM HC EXC MALIG SKIN LESION TRUNK/ARM/LEG 1.1-2.0 [place] [address] HC EXC MALIG SKIN LESION SUSANA NK/ARM/LEG [...] Expiration Date Visits Requ ested Visits Authorized [id number] 1 1 Encounter Details Date Type Department Care Team Description 10/12/2021 Anesthesia Event [facility] Jared Ricardo cortes MD [facility] [place], [facility] ANEST[facility]IA [address] [facility] [address] [place], [place] [address] PeriOp Services Derian Pal APRN [facility] ANESTHESIA [address] [place] [address] [address] [place] [address] Anesthesia Record Procedure Summary Procedure Name Responsible Anesthesia Start Anesthesia Stop Time Anesthesiologist Time EXCISION MULTIPLE Ricardo Mcintyre MD 10/12/21 1312 1520 LIPOMAS - bilateral legs, arms and trunk (Back) Events Date Time Event Comment 10/12/2021 1137 1312 An Start 1315 An Start Data 1315 AN REASSESS I attest that I have identified and re-evaluated the patient imme diately before the induction of anesthesia and I am satisfied that the anesthetic plan is suitable for the patient's condition and procedure. The f irst vital signs recorded are pre- induction. Ni Davies APRN MEAT STOCKER 1319 An Induction 1319 MD Present 1321 An Intubation 1322 Anesthesia Complete 1327 MD Present 1345 AN INCISION 1345 Quick Note Local injected t o multiple incision sites, 0.25%marcaine wi th epi 1354 MD Present 1432 Quick Note TURNED PRONE 1436 MD Present 1458 MD Present 1515 AN Extubation All extubation c riteria met prior to removal. 1515 an stop data 1520 An Stop Electronically s igned by Ni Davies APRN MEAT STOCKER on Sep 3:20 PM Name Total midazolam 1 mg/mL 2 mg fentaNYL 50 mcg/mL 100 mcg propofol 10 mg/mL 160 mg lidocaine 1% 50 mg ondansetron 2 mg/mL 4 mg PRE OP antibiotics NOT needed for this surgical proced ure. 1 each rocuronium 10 mg/mL 50 mg dexamethasone (DECADRON) 4 mg/mL 4 mg lidocaine 4% laryngotracheal solution 4 mL HYDROmorphone 1 mg/mL 1 mg ketorolac 30mg/mL 30 mg sugammadex (BRIDION) 200mg/2mL 200 mg LR 600 mL Agents Name NO HELIOX O2 N2O Air Exp Sevoflurane Exp Isoflurane Exp Desflurane Exp N2O O2 Delivery Device Ins Sevoflurane Ins Isoflurane Ins Desflurane O2 [...] Aragoni-strip on lipoma AMINAH Gómez excision site Peripheral IV 10/12/21; 1215; 20 G; 10/12/21 1215 by 10/12/21 1724 by Left, Dorsal; Hand; Elizabeth Tay Nieveen, Catherine M, None; Tolerated well RN RN ETT Placement Date: 10/12/21 1332 by 10/12/21 1515 b y 10/12/21; Placement Ni Landry Crystal Time: 1332 (created ELADIO Espino CRNA, APRN CR NA via procedure documentation); Mask Ventilation: 1; Induction Type: Intravenous; Ease of Intubation: Easy; Technique: Direct laryngoscopy; ETT Type: Single; Tube Size: 7 mm; DL Blade Size: Machado 2; Grade View: 1; Adjucts: Stylet; Placement Person: MEAT STOCKER; Attempts: 1; Depth: 22 cm documented in this encounter Social History Tobacco [...] at Date Recorded Female 11/09/2021 7:53 PM PAPER PROCESSING MACHINE HELPER COVID-19 Exposure Response Date Recorded In the last month, have you been in contact with No / Unsure 10/12/2021 10:55 AM PAPER PROCESSING MACHINE HELPER someone who was confirmed or suspected to have Coronavirus / COVID-19? documented as of this encounter OR Notes Anesthesia Postprocedure Evaluation - Ricardo Mcintyre MD - 10/12/2021 4:00 PM CST Patient: Marta Hill Procedure: Procedure(s): EXCISION MULTIPLE LIPOMAS - bilateral legs, arms and trunk Diagnosis:Lipoma of skin and subcutaneous tissue [D17.30] Diagnosis Additional Information: No value filed. Anesthesia Type: General Note: Disposition: Outpatient Postop Pain Control: Uneventful Sign Out: Well controlled pain PONV: No Neuro/Psych: Uneventful Sign Out: Acceptable/Baseline neuro status Airway/Respiratory: Uneventful Sign Out: Acceptable/Baseline resp. status CV/Hemodynamics: Uneventful Sign Out: Acceptable CV status Other NRE: NONE DID A NON-ROUTINE EVENT OCCUR? No Last vitals: Vitals Value Taken Time BP 119/72 10/12/21 1545 Temp 98.3 ??F (36.8 ??C) 10/12/21 1517 Pulse 106 10/12/21 1559 Resp 0 10/12/21 1559 SpO2 99 % 10/12/21 1559 Vitals shown include unvalidated device data. Electronically Signed By: Ricardo Mcintyre MD October 12, 2021 4:00 PM R PROCESSING MACHINE HELPER Anesthesia Procedure Notes - Ni Landry APRN MEAT STOCKER - 10/12/2021 1:32 PM CSTAssociated Order(s): Airway Airway Patient location during procedure: OR Procedure Start/Stop Times: 10/12/2021 1:21 PM Staff - MEAT STOCKER: Ni Davies APRN MEAT STOCKER Performed By: MEAT STOCKER Consent for Airway Urgency: elective Indications and [...] Secured at (cm): 22 Bite block used: Oral Airway Post intubation assessment Placement verified by: capnometry, equal breath sounds and chest rise Number of attempts at approach: 1 Number of other approaches attempted: 0 Secured with: plastic tape Ease of procedure: easy Dentition: Intact R PROCESSING MACHINE HELPER Anesthesia Preprocedure Evaluation - Ricardo Mcintyre MD - 10/12/2021 11:35 AM CST Anesthesia Pre-Procedure Evaluation Patient: Marta Hill : 1980 Preoperative Diagnosis: Lipoma of skin and subcutaneous tissue [D17.30] Procedure : Procedure(s): EXCISION MULTIPLE LIPOMAS - bilateral legs, arms and trunk Past Medical History: Diagnosis Date ??? Depressive [...] GENITOURINARY SURGERY Tubal ligation and ablasion ??? DIGITIZER OPERATOR SURGERY not sure tubal ligation and ablasion ? ? HEAD & NECK SURGERY Sinus ??? ORTHOPEDIC SURGERY 2020 radial head fracture 3 screws, left elbow Allergies Allergen Reactions ??? Amoxicillin Rash Social History Tobacco Use ??? Smoking status: Never Smoker ??? Smokeless tobacco: Never Used Substance Use Topics ??? Alcohol use: Not Currently Comment: None for 1.5 personal choice. Family hx. Wt Readings from Last 1 Encounters: 10/12/21 93 kg (205 lb) Anesthesia Evaluation Pt has had prior anesthetic. Type: General. ROS/MED HX ENT/Pulmonary: (+) sleep apnea, doesn't use CPAP, Intermittent, asthma Treatment: Inhaler prn, Neurologic: Cardiovascular: - neg cardiovascular ROS METS/Exercise Tolerance: Hematologic: - neg hematologic ROS Musculoskeletal: - neg musculoskeletal ROS GI/Hepatic: (+) liver disease, Renal/Genitourinary: Endo: (+) Obesity, Psychiatric/Substance Use: (+) psychiatric history anxiety, depression and other (comment) (PTSD) Infectious Disease: - neg infectious disease ROS Malignancy: Other: Physical Exam Airway Mallampati: II TM distance: > 3 FB Neck ROM: full Mouth opening: > 3 cm Respiratory Devices and Support Dental no notable dental history Cardiovascular cardiovascular exam normal Pulmonary pulmonary exam normal OUTSIDE LABS: CBC: [...] Lab Results Component Value Date HCG Negative 10/05/2021 HEPATIC: Lab Results Component Value Date ALBUMIN 4.0 06/11/2021 PROTTOTAL 7.5 06/11/2021 ALT 35 06/11/2021 AST 20 06/11/2021 GGT 109 (H) 06/11/2021 ALKPHOS 91 06/11/2021 BILITOTAL 0.4 06/11/2021 OTHER: Lab Results Component Value Date ROSIO 8.8 05/17/2021 TSH 1.65 05/17/2021 CRP <2.9 05/17/2021 SED 9 05/17/2021 Anesthesia Plan ASA Status: 2 NPO Status: NPO Appropriate Anesthesia Type: General. - Airway: LMA Induction: Intravenous. Maintenance: Balanced. Consents Anesthesia Plan(s) and associated risks, benefits, and realistic alternatives discussed. Questions answered and patient/admitting representative(s) expressed understanding. - Discussed: - Discussed with: Patient - Extended Intubation/Ventilatory Support Discussed: No. - Patient is DNR/DNI Status: No Use of blood products discussed: No . Postoperative Care Pain management: IV analgesics. PONV prophylaxis: Ondansetron (or other 5HT-3), Dexamethasone or Solumedrol Comments: Ricardo Mcintyre MD R PROCESSING MACHINE HELPER documented in this encounter Miscellaneous Notes Anesthesia Care Transfer Note - Ni Landry APRN MEAT STOCKER - 10/12/2021 3:20 PM CST Patient: Mrata Hill Procedure: Procedure(s): EXCISION MULTIPLE LIPOMAS - bilateral legs, arms and trunk Diagnosis: Lipoma of skin and subcutaneous tissue [D17.30] Diagnosis Additional Information: No value filed. Anesthesia Type: General Note: Oropharynx: oropharynx clear of all foreign objects and spontaneously breathing Level of Consciousness: drowsy Oxygen Supplementation: nasal cannula Level of Supplemental Oxygen (L/min / FiO2): 2 Independent Airway: airway patency satisfactory and stable [...] understanding Vitals: Vitals Value Taken Time BP 135/87 10/12/21 1517 Temp Pulse 100 10/12/21 1518 Resp 14 10/12/21 1518 SpO2 99 % 10/12/21 1518 Vitals shown include unvalidated device data. Electronically Signed By: Ni Davies APRN CRNA October 12, 2021 3:20 PM R PROCESSING MACHINE HELPER documented in this encounter Plan of Treatment Upcoming Encounters Date Type Specialty Care Team Description 09/26/2022 Appointment Speech Therapy Obdulio Barrera MD [address] [place] [address] Anabel Chew, BLOOD SPLATTER ANALYST [place] [address] [facility] [address] [place] [address] 09/27/2022 Therapy Visit Physical Therapy Luisana Watkins, PT [address] [place] [address] 09/29/2022 Virtual Visit Pain & Palliative Marilia Deluna, [facility] PhD [address] [place], [place] [address] 09/30/2022 Office Visit Family Practice Aydee Burton, SECURITY INCIDENT HANDLER CAP INSPECTOR [address] [place] [address] 10/03/2022 Therapy Visit Physical Therapy Una Reardon, PT [address] [place] [phone] 10/10/2022 Hospital Encounter Surgery Lesly Celaya MD [address] [place] [address] 10/10/2022 Office Visit Surgery Lesly Celaya MD [address] [place] [address] Ninoska Flowers, PA-C [address] [facility] [address] [place] [address] 10/10/2022 Surgery Surgery Lesly Celaya, EXCISION, MASSES - MD back, abdomen, [address] right lower [facility] [address] 10/11/2022 Virtual Visit Clari Su, [facility] [address] [id number] [place], [place] [address] 10/14/2022 Appointment Speech Therapy Anabel Chew, BLOOD SPLATTER ANALYST [address] [place] [address] 10/21/2022 Office Visit Pulmonology Obdulio Barrera MD [address] [facility] [address] [place] [address] 10/25/2022 PRE VISIT ENT Charo Burton MD Previsit [address] [place] [address] 10/25/2022 Office Visit ENT Charo Burton MD [address] [place] [address] 10/25/2022 Office Visit ENT Provider, Ent Dysphonia Sewer Connector 10/28/2022 Appointment Speech Therapy Anabel Chew SLP [address] [address] 11/17/2022 Appointment Speech Therapy Anabel Chew SLP [address] [address] 12/23/2022 Office Visit Neurology Colby Yeung MD [address] [place] [address] Scheduled Procedures Name Priority Associated Diagnoses Date/Time EXCISION, MASS, TORSO Lipoma of skin and subcuta neous 10/10/2022 7:30 AM PAPER PROCESSING MACHINE HELPER tissue documented as of this encounter Procedures Procedure Name Priority Date/Time Associated Comments Diagnosis ANE AIRWAY ETT Routine 10/12/2021 1:32 PM Results for this PERFORMABLE PAPER PROCESSING MACHINE HELPER procedure are i n the results section. documented in this encounter Results ANE AIRWAY ETT PERFORMABLE (10/12/2021 1:32 PM PAPER PROCESSING MACHINE HELPER) Ni López, SECURITY INCIDENT HANDLER MEAT STOCKER - 10/12 1:32 PM PAPER PROCESSING MACHINE HELPER Ni Davies APRN MEAT STOCKER ? 10/12/2021 ??1:32 PM Airway ? Patient location during procedure : OR ? Procedure Start/Stop Times: 10/12 1:21 PM Staff - ? MEAT STOCKER: Ni Davies APRN MEAT STOCKER ? Performed By: MEAT STOCKER Consent for Airway ? Urgency: elective Indications [...] at (cm): 22 ? Bite block used: Oral Airway Post intubation assessment ? Placement verified by: capnometry , equal breath sounds and chest rise ? Number of attempts at approach: 1 ? Number of other approaches attemp mike: 0 ? Secured with: plastic tape ? Ease of procedure: easy ? Dentition: Intact Ricardo Mcintyre MD [facility] documented in this encounter Visit Diagnoses Not on filedocumented in this encounter Administered Medications Inactive Administered Medications - up to 3 most recent administrations Medication Order MAR Action Action Date Dose Rate Site dexamethasone (DECADRON) injection Given 10/12/2021 1:19 PM PAPER PROCESSING MACHINE HELPER 4 mg Intravenous, PRN, Administer over 1 Minutes, Starting on Mon10/12/21 at 1319, Anesthesia Intra-op fentaNYL (PF) (SUBLIMAZE) injection Given 10/12/2021 1:19 PM PAPER PROCESSING MACHINE HELPER 100 mcg Intravenous, PRN, Administer over 3-5 Minutes, Starting on Mon10/12/21 at 1319, Anesthesia Intra-op HYDROmorphone (DILAUDID) injection Given 10/12/2021 2:56 PM PAPER PROCESSING MACHINE HELPER 1 mg Intravenous, PRN, Starting on Mon10/12/21 at 1456, Anesthesia Intra-op ketorolac (TORADOL) injection Given 10/12/2021 2:57 PM PAPER PROCESSING MACHINE HELPER 30 mg Intravenous, PRN, Administer over 2 Minutes, Starting on Mon10/12/21 at 1457, Anesthesia Intra-op lactated ringers infusion New Bag 10/12/2021 1:12 PM PAPER PROCESSING MACHINE HELPER Intravenous, CONTINUOUS PRN, Anesthesia Intra-op, Starting on Mon10/12/21 at 1312, Until Mon10/12/21 at 1520 lidocaine 1 % injection Given 10/12/2021 1:19 PM PAPER PROCESSING MACHINE HELPER 50 mg Intravenous, PRN, Starting on Mon10/12/21 at 1319, Anesthesia Intra-op lidocaine 4 % solution Given 10/12/2021 1:21 PM PAPER PROCESSING MACHINE HELPER 4 mLs Topical, PRN, Starting on Mon10/12/21 at 1321, Anesthesia Intra-op midazolam (VERSED) injection Given 10/12/2021 1:09 PM PAPER PROCESSING MACHINE HELPER 2 mg Intravenous, Administer over 2 Minutes, PRN, Starting on Mon10/12/21 at 1309, Anesthesia Intra-op ondansetron (ZOFRAN) injection Given 10/12/2021 1:27 PM PAPER PROCESSING MACHINE HELPER 4 mg Intravenous, PRN, Administer over 2-5 Minutes, Starting on Mon10/12/21 at 1327, Anesthesia Intra-op PRE OP antibiotics NOT needed for this Given 10/12/2021 1:12 PM PAPER PROCESSING MACHINE HELPER 1 each surgical procedure. CONTINUOUS, Starting on Mon10/12/21 at 1200, Until Mon10/12/21 at 1516, PRE OP antibiotics NOT needed for this surgical procedure., Pre-procedure propofol (DIPRIVAN) injection 10 mg/mL v ial Given 10/12/2021 1:19 PM PAPER PROCESSING MACHINE HELPER 160 mg Intravenous, PRN, Starting on Mon10/12/21 at 1319, Anesthesia Intra-op rocuronium injection Given 10/12/2021 1:19 PM PAPER PROCESSING MACHINE HELPER 50 mg Intravenous, PRN, Starting on Mon10/12/21 at 1319, Anesthesia Intra-op sugammadex (BRIDION) injection Given 10/12/2021 3:10 PM PAPER PROCESSING MACHINE HELPER 200 mg Intravenous, PRN, Starting on Mon10/12/21 at 1510, Anesthesia Intra-op documented in this encounter Additional Health Concerns Assessment Noted Time PHQ-9 Depression Total Score: 22 06/28/2021 7:03 AM CD T documented as of this encounter Care Teams Horn Player Relationship Specialty Start Date End Date Aydee Burton, PCP - General Nurse Practitioner - 05/17/21 SECURITY INCIDENT HANDLER CAP INSPECTOR Family [address] [place] [address] [phone] Aydee Burton, Assigned PCP 04/28/21 SECURITY INCIDENT HANDLER CAP INSPECTOR [address] [place] [address] Louisa Hood, Assigned Neuroscience 07/11/21 SECURITY INCIDENT HANDLER CAP INSPECTOR Provider [address] [place] [address] [phone] Se Levy, Lead Parking Supervisor 08/05/21 05/12/22 Clari Francois Pharmacist Pharmacist 08/06/21 06/07/22 [facility] [address] [facility] [address] [place], [place] [phone] [place], Assigned Sleep 08/01/21 Angel Turcios, Provider [address] [place], [place] [phone] Lesly Celaya MD Assigned Surgical 09/05/[address] Provider [place], [place] [address] Elizabeth Mcintyre CNM Assigned OBGYN 09/05/21 11/06/21 [address] Provider [place], [place] [phone] Tawana Patel MA [facility] 11/18/21 Worker Mago Swift, [facility] Lead Parking Supervisor Supervisor Cell Room - 08/05/21 Clinical documented as of this encounter
--- OUTSIDE RECORDS SUMMARY | 2022-09-21 04:15 | XMS_ITS | Encounter Summary ---
:1980 Author Organization [place] Address [address] [place] [address] Care Team Providers Name Role Phone Aydee Burton PE TEACHER DISTRICT RECRUITER Primary Care Provider [phone] Aydee Burton PE TEACHER DISTRICT RECRUITER Unavailable [phone] Louisa Hood PE TEACHER DISTRICT RECRUITER Unavailable [phone] Se Levy INTERNAL CONTROL SPECIALIST Unavailable Unavailable Clari Ruiz [facility] Unavailable [phone] Angel Hannah MD Unavailable Lesly Celaya MD Unavailable Elizabeth Mcintyre CN Unavailable Tawana Patel MA Unavailable Unavailable Mago Swift TANKER TRUCK DRIVER Unavailable Encounter Details Date Type Department Care Team Description 10/05/2021 Travel Social History Tobacco Use Types Packs/Day [...] How often do you attend synagogue or temple services? 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/2021 7:53 PM PRODUCTION ASSEMBLER COVID-19 Exposure Response Date Recorded In the last month, have you been in contact with No / Unsure 10/05/2021 8:10 AM PRODUCTION ASSEMBLER someone who was confirmed or suspected to have Coronavirus / COVID-19? documented as of this encounter Plan of Treatment Upcoming Encounters Date Type Specialty Care Team Description 09/26/2022 Appointment Speech Therapy Obdulio Barrera MD [address] [facility] [address] [place], [place] [phone] Anabel Chew RECYCLABLE MATERIALS COLLECTOR [place] [phone] [facility] [address] [place], [place] [phone] 09/27/2022 Therapy Visit Physical Therapy Luisana Watkins, PT [address] [place] [address] 09/29/2022 Virtual Visit Pain & Palliative Marilia Deluna, Care PhD [address] [place] [address] 09/30/2022 Office Visit Family Practice Aydee Burton, PE TEACHER DISTRICT RECRUITER [address] [place], [place] [phone] 10/03/2022 Therapy Visit Physical Therapy Una Reardon, PT [address] [place] [address] 10/10/2022 Hospital Encounter Surgery Lesly Celaya MD [address] [place] [address] 10/10/2022 Office Visit Surgery Lesly Celaya MD [address] [place] [address] Ninoska Flowers, FLROES-Ynes [address] [place], [place] [phone] 10/10/2022 Surgery Surgery Lesly Celaya, EXCISION, MASSES - MD back, abdomen, [address] right [place] [address] 10/11/2022 Virtual Visit Clari Su, [place] [address] [place] [phone] [place], [place] [address] 10/14/2022 Appointment Speech Therapy Anabel Chew, RECYCLABLE MATERIALS COLLECTOR [facility] [address] [facility] [address] [place] [address] 10/21/2022 Office Visit Pulmonology Obdulio Barrera MD [address] [facility] [address] [place], [place] [phone] 10/25/2022 PRE VISIT ENT Burton, Charo, MD Previsit [address] [place] [address] 10/25/2022 Office Visit ENT Charo Burton MD [address] [place] [address] 10/25/2022 Office Visit ENT Provider, Jeannette Ent Dysphonia Anesthetist 10/28/2022 Appointment Speech Therapy Anabel Chew, RECYCLABLE MATERIALS COLLECTOR [address] [phone] 11/17/2022 Appointment Speech Therapy Anabel Chew, RECYCLABLE MATERIALS COLLECTOR [address] [address] 12/23/2022 Office Visit Neurology Colby Yeung MD [address] [place] [place] [phone] Scheduled Procedures Name Priority Associated Diagnoses Date/Time EXCISION, MASS, TORSO Lipoma of skin and subcuta neous 10/10/2022 7:30 AM PRODUCTION ASSEMBLER tissue documented as of this encounter Visit Diagnoses Not on filedocumented in this encounter Additional Health Concerns Assessment Noted Time PHQ-9 Depression Total Score: 22 06/28/2021 7:03 AM CD T documented as of this encounter Care Teams Enterprise Solutions Architect Relationship Specialty Start Date End Date Aydee Burton, PCP - General Nurse Practitioner - 05/17/21 PE TEACHER DISTRICT RECRUITER Family [address] [place], [place] [phone] Aydee Burton, Assigned PCP 04/28/21 PE TEACHER DISTRICT RECRUITER [address] [place], [place] [phone] Louisa Hood, Assigned Neuroscience 07/11/21 PE TEACHER DISTRICT RECRUITER Provider [address] [place], [place] [address] Se Levy, Lead Medical Case Manager 08/05/21 05/12/22 [facility] Clari Ruiz Pharmacist Pharmacist 08/06/21 06/07/22 Jocelyn, [facility] [address] [place] [address] [place], Assigned Sleep 08/01/21 Angel Turcios, Provider [address] [place] [address] Lesly Celaya MD Assigned Surgical 09/05/[address] Provider [place], [place] [phone] Elizabeth Mcintyre CNM Assigned OBGYN 09/05/21 11/06/[address] Provider [place], [place] [phone] Tawana Patel MA [facility] 09/30/21 Worker Mago Swift [facility] Lead Medical Case Manager [employer] Linux Engineer - 08/05/21 Clinical documented as of this encounter
--- OUTSIDE RECORDS SUMMARY | 2022-09-21 04:15 | XMS_ITS | Encounter Summary ---
:1980 Author Organization [place] Address [address] [place] [address] Care Team Providers Name Role Phone Aydee Burton BROOM MAKER SHIFTMAN Primary Care Provider Aydee Burton BROOM MAKER SHIFTMAN Unavailable [phone] Louisa Hood BROOM MAKER SHIFTMAN Unavailable [phone] Se Levy SUPPLIER QUALITY Unavailable Unavailable Clari Ruiz [facility] Unavailable [phone] Angel Hannah MD Unavailable Lesly Celaya MD Unavailable Elizabeth Mcintyre Unavailable Tawana Patel MA Unavailable Unavailable Mago Swift CRAPS MANAGER Unavailable Encounter Details Date Type Department Care Team Description 10/27/2021 [facility] Mario Yeboah [facility] Noy Machado PA-C [address] [place] [address] [place] [address] [phone] Social History Tobacco Use Types Packs/Day Years [...] How often do you attend denominational or druze services? Never 08/05/2021 Do you [...] at Date Recorded Female 11/09/2021 7:53 PM RADIO RECORDER COVID-19 Exposure Response Date Recorded In the last month, have you been in contact with No / Unsure 10/12/2021 10:55 AM RADIO RECORDER someone who was confirmed or suspected to have Coronavirus / COVID-19? documented as of this encounter Miscellaneous Notes Telephone Encounter - Mario Castellon PA-C - 10/27/2021 3:38 PM RADIO RECORDER [facility] Postoperative Call Note: Marta Hill was called for an update regarding her recovery. She underwent a excision of multiple subcutaneous masses by Dr. Celaya on 11/30/21. Today she tells me she is doing well. She statesthat she does have some tenderness at her incisions and she has noticed some lumps under a few of the incisions. She denies drainage, fevers and chills. There is some redness in the line of the incision. The pathology revealed benign angiolipomas. This was discussed with the patient. Patient was instructed to slowly and gradually resume all normal activities. If she has increased pain or signs of infections she should call our office and be seen in clinic. The patient understands and states all of her questions were answered. Mario Castellon PA-C Please route or send letter to: Primary Care Provider (PCP) O RECORDER documented in this encounter Plan of Treatment Upcoming Encounters Date Type Specialty Care Team Description 09/26/2022 Appointment Speech Therapy Obdulio Barrera MD [address] [facility] 276 [place], [place] [address] Anabel Chew, CHEMISTRY TECHNICAL OFFICER [address] [place], [place] [address] 09/27/2022 Therapy Visit Physical Therapy Luisana Watkins, PT [address] [place] [address] 09/29/2022 Virtual Visit Pain & Palliative Marilia Deluna, [facility] PhD [address] [place] [address] 09/30/2022 Office Visit Family Practice Aydee Burton, BROOM MAKER SHIFTMAN [address] [place], [place] [address] 10/03/2022 Therapy Visit Physical Therapy Una Reardon, PT 0351 [place] [phone] 10/10/2022 Hospital Encounter Surgery Lesly Celaya MD [address] [place], [place] [address] 10/10/2022 Office Visit Surgery Lesly Celaya MD [address] [place], [place] [address] Ninoska Flowers, PA-C [address] [place] [address] 10/10/2022 Surgery Surgery Lesly Celaya, EXCISION, MASSES - MD back, abdomen, [address] [place] [address] 10/11/2022 Virtual Visit Clari Su, [place] [id number] [address] 10/14/2022 Appointment Speech Therapy Anabel Chew, CHEMISTRY TECHNICAL OFFICER [address] [address] 10/21/2022 Office Visit Pulmonology Obdulio Barrera MD [address] [place] [address] 276 [place], [place] [address] 10/25/2022 PRE VISIT ENT Charo Burton MD Previsit [address] [place] [address]84[address] 10/25/2022 Office Visit Charo Carter MD [address] [place] [address] [id number] 10/25/2022 Office Visit ENT Provider, Jeannette Ent Dysphonia Material Manager 10/28/2022 Appointment Speech Therapy Anabel Chew, CHEMISTRY TECHNICAL OFFICER [address] [phone] 11/17/2022 Appointment Speech Therapy Anabel Chew, CHEMISTRY TECHNICAL OFFICER [facility] [address] [facility] 396 [place], [place] [address] 12/23/2022 Office Visit Neurology Colby Yeung MD [address] [facility] [place] [address] Scheduled Procedures Name Priority Associated Diagnoses Date/Time EXCISION, MASS, TORSO Lipoma of skin and subcuta neous 10/10/2022 7:30 AM RADIO RECORDER tissue documented as of this encounter Visit Diagnoses Not on filedocumented in this encounter Additional Health Concerns Assessment Noted Time PHQ-9 Depression Total Score: 22 06/28/2021 7:03 AM CD T documented as of this encounter Care Teams Tar Processing Technician Relationship Specialty Start Date End Date Aydee Burton, PCP - General Nurse Practitioner - 05/17/21 BROOM MAKER SHIFTMAN Family [address] [place] [address] Aydee Burton, Assigned PCP 04/28/21 BROOM MAKER SHIFTMAN [address] [place], [place] [address] Louisa Hood, Assigned Neuroscience 07/11/21 BROOM MAKER SHIFTMAN Provider 500 [place], [place] [address] Se Levy, Lead Appliquer 08/05/21 05/12/22 Clari Francois Pharmacist Pharmacist 08/06/21 06/07/22 Jocelyn [facility] [address] [facility] [address] [place] [address] [place], Assigned Sleep 08/01/21 Angel Turcios, Provider [address] [place] [address] Lesly Celaya MD Assigned Surgical 09/05/21 [address] Provider [place], [place] [address] Elizabeth Mcintyre CNM Assigned OBGYN 09/05/21 11/06/21 [address] [place] [address] Tawana Patel MA [facility] 09/30/21 Worker Mago Swift LICSW Lead Appliquer Narrative Writer - 08/05/21 Clinical documented as of this encounter
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
--- OUTSIDE RECORDS SUMMARY | 2022-09-21 04:16 | XMS_ITS | Encounter Summary ---
:1980 Author Organization [place] Address [address] [place] [address] Care Team Providers Name Role Phone Aydee Burton SCHEME TECHNICIAN PACKING SHED SUPERVISOR Primary Care Provider [phone] Aydee Burton SCHEME TECHNICIAN PACKING SHED SUPERVISOR Unavailable [phone] Louisa Hood SCHEME TECHNICIAN PACKING SHED SUPERVISOR Unavailable [phone] Se Levy BUFFER OPERATOR Unavailable Unavailable Anny Bernabe Unavailable Unavailable Clari Ruiz [facility] Unavailable [phone] Angel Hannah MD Unavailable Mago Swift PACKAGING TECH Unavailable Encounter Details Date Type Department Care Team Description 08/30/2021 Travel Social History Tobacco Use Types Packs/Day [...] How often do you attend anabaptism or anabaptism services? Never 08/05/2021 Do you [...] at Date Recorded Female 11/09/2021 7:53 PM CINEMA OPERATOR COVID-19 Exposure Response Date Recorded In the last month, have you been in contact with No / Unsure 08/30/2021 2:54 PM CDT someone who was confirmed or suspected to have Coronavirus / COVID-19? documented as of this encounter Plan of Treatment Upcoming Encounters Date Type Specialty Care Team Description 09/26/2022 Appointment Speech Therapy Obdulio Barrera MD [address] [facility] 276 [place], [place] [address] Anabel Chew, VOCATIONAL AIDE [address] [place], [place] [address] 09/27/2022 Therapy Visit Physical Therapy Luisana Watkins, PT [address] [place] [address] 09/29/2022 Virtual Visit Pain & Palliative Marilia Deluna, Care PhD [address] [place] [address] 09/30/2022 Office Visit Family Practice Aydee Burton, SCHEME TECHNICIAN PACKING SHED SUPERVISOR [address] [place] [address] 10/03/2022 Therapy Visit Physical Therapy Una Reardon, PT [address] [place] [phone] 10/10/2022 Hospital Encounter Surgery Lesly Celaay MD [address] [place] [address] 10/10/2022 Office Visit Surgery Lesly Celaya MD [address] [place] [address] Ninoska Flowers, PA-C [address] [place] [address] 10/10/2022 Surgery Surgery Lesly Celaya, EXCISION, MASSES - back, abdomen, [address] right [place] [address] 10/11/2022 Virtual Visit Clari Su, [facility] [address] [place] [phone] [place], [place] [address] 10/14/2022 Appointment Speech Therapy Anabel Chew, VOCATIONAL AIDE [facility] [address] [facility] 396 [place], [place] [address] 10/21/2022 Office Visit Pulmonology Obdulio Barrera MD [address] [facility] 276 [place], [place] [phone] 10/25/2022 PRE VISIT ENT Charo Burton MD Previsit 909 [place] [address] 10/25/2022 Office Visit ENT Charo Burton MD [address] [place], [place] [address] 10/25/2022 Office Visit ENT Provider, Jeannette Ent Dysphonia Acquisition Manager 10/28/2022 Appointment Speech Therapy Anabel Chew, VOCATIONAL AIDE [address] 4[address] 11/17/2022 Appointment Speech Therapy Anabel Chew, VOCATIONAL AIDE [address] [address] 12/23/2022 Office Visit Neurology Colby Yeung MD [address] [place] [address] Scheduled Procedures Name Priority Associated Diagnoses Date/Time EXCISION, MASS, TORSO Lipoma of skin and subcuta neous 10/10/2022 7:30 AM CINEMA OPERATOR tissue documented as of this encounter Visit Diagnoses Not on filedocumented in this encounter Additional Health Concerns Assessment Noted Time PHQ-9 Depression Total Score: 22 06/28/2021 7:03 AM CD T documented as of this encounter Care Teams Wheel Polisher Relationship Specialty Start Date End Date Aydee Burton, PCP - General Nurse Practitioner - 05/17/21 SCHEME TECHNICIAN PACKING SHED SUPERVISOR Family [address] [place] [phone] Aydee Burton, Assigned PCP 04/28/21 SCHEME TECHNICIAN [address] [phone] Louisa Hood, Assigned Neuroscience 07/11/21 SCHEME TECHNICIAN PACKING SHED SUPERVISOR Provider [address] [place] [address] [phone] Se Levy, Lead Parks Worker 08/05/21 05/12/22 [facility] 08/05/21 09/30/21 Worker Clari Ruiz Pharmacist Pharmacist 08/06/21 06/07/22 [facility] [address] [place] [address] [place], Assigned Sleep 08/01/21 Angel Turcios, Provider [address] [place] [address] Mago Swift, [facility] Lead Parks Worker Lip Cutter And Scorer - 08/05/21 Clinical documented as of this encounter
--- OUTSIDE RECORDS SUMMARY | 2022-09-21 04:16 | XMS_ITS | Encounter Summary ---
:1980 Author Organization [place] Address [address] [place] [address] Care Team Providers Name Role Phone Aydee Burton DIRECTOR BUSINESS DEVELOPMENT UNDERGROUND ROOF BOLTER Primary Care Provider [phone] Aydee Burton DIRECTOR BUSINESS DEVELOPMENT UNDERGROUND ROOF BOLTER Unavailable [phone] Louisa Hood DIRECTOR BUSINESS DEVELOPMENT UNDERGROUND ROOF BOLTER Unavailable [phone] Se Levy TANDEM MILL STICKER Unavailable Unavailable Anny Bernabe Unavailable Unavailable Clari Ruiz [facility] Unavailable [phone] Angel Hannah MD Unavailable Mago Swift FINAL CLEANER Unavailable Reason for Visit Diagnostic Imaging Ultrasound (Routine) - Closed Specialty Diagnoses / Procedures Referred By Contact Refer red To Contact Diagnoses Menorrhagia with irregular cycle Elizabeth Mcintyre CNM Procedures US Pelvic Complete with Transvaginal [address] [place], [place] [address] Referral ID Status Reason Start Date Expiration Date Visits Requ ested Visits Authorized [id number] Closed 08/30/2021 08/30/2022 1 1 Encounter Details Date Type Department Care Team Description 08/31/2021 Ancillary Procedure [facility] Elizabeth Mcintyre Wi norrhagia with Clinic [place] Cheryle, NYDIA irregular cycle [place] [address] [address] [place] [address] [address] [facility], [address] [place] [address] [phone] Social History Tobacco Use Types Packs/Day Years [...] How often do you attend taoism or pentecostalism services? 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/2021 7:53 PM SENIOR TELECOMMUNICATIONS CONSULTANT COVID-19 Exposure Response Date Recorded In the last month, have you been in contact with No / Unsure 08/31/2021 9:32 AM CDT someone who was confirmed or suspected to have Coronavirus / COVID-19? documented as of this encounter Plan of Treatment Upcoming Encounters Date Type Specialty Care Team Description 09/26/2022 Appointment Speech Therapy Obdulio Barrera MD [address] [facility] 276 [place], [place] [address] Anabel Chew, SAL[employer]ATION [employer] OFFICER [place] [phone] [facility] 396 [place] [address] 09/27/2022 Therapy Visit Physical Therapy Luisana Watkins, PT [address] [place] [address] 09/29/2022 Virtual Visit Pain & Palliative Marilia Deluna, Care PhD [address] [place], [place] [address] 09/30/2022 Office Visit Family Practice Aydee Burton, DIRECTOR BUSINESS DEVELOPMENT UNDERGROUND ROOF BOLTER [address] [place] [address] [phone] 10/03/2022 Therapy Visit Physical Therapy Una Reardon, PT [address] [place] [phone] 10/10/2022 Hospital Encounter Surgery Lesly Celaya MD [address] [place], [place] [address] 10/10/2022 Office Visit Surgery Lesly Celaya MD [address] [place], [place] [address] Ninoska Flowers PA-Ynes [address] [facility] 300 [place] [address] 10/10/2022 Surgery Surgery Lesly Celaya, EXCISION, MASSES - back, abdomen, [address] right lower [facility] extremity [place], [place] [phone] 10/11/2022 Virtual Visit Clari Su, [facility] [address] [place] [address] 10/14/2022 Appointment Speech Therapy Anabel Chew, [employer] OFFICER [address] [address] 10/21/2022 Office Visit Pulmonology Obdulio Barrera MD [address] [facility] 276 [place], [place] [address] 10/25/2022 PRE VISIT ENT Charo Burton MD Previsit 909 [place], [place] [address] 10/25/2022 Office Visit ENT Charo Burton MD 909 [place], [place] [address] 10/25/2022 Office Visit ENT Provider, Ent Dysphonia District Manager Primary Care Sales 10/28/2022 Appointment Speech Therapy Anabel Chew, [employer]ATION [employer] OFFICER [address] [address] 11/17/2022 Appointment Speech Therapy Anabel Chew, CELINE [address] [address] 12/23/2022 Office Visit Neurology Colby Yeung MD [address] [place] [id number] Scheduled Procedures Name Priority Associated Diagnoses Date/Time EXCISION, MASS, TORSO Lipoma of skin and subcuta neous 10/10/2022 7:30 AM SENIOR TELECOMMUNICATIONS CONSULTANT tissue documented as of this encounter Procedures Procedure Name Priority Date/Time Associated Comments Diagnosis US PELVIC Routine 08/31/2021 10:02 Menorrhagia with Results for this TRANSABDOMINAL AND AM CDT irregular cycle proced ure are in TRANSVAGINAL the results section. documented in this encounter Results (ABNORMAL) US Pelvic Complete with Transvaginal (08/31/2021 10:02 AM CDT) Anatomical Region Laterality Modality Abdomen/Pelvis Ultrasound Specimen (Source) Anatomical Location Collection Method / Collectio n Time Received Time / Laterality Volume Narrative 08/31/2021 3:[address] [facility] ULTRASOUND - PELVIC MACHINE BOBBIN WINDER- Transabdominal and Transvaginal ?? Referring MD: Elizabeth Mcintyre CNM ? CLINICAL INFORMATION ?? Indications for ultrasound: Bleeding/Menses - Menometrorrhagia (heav y, irregular menses) Hx endometrial ablation ?? LMP: 23 Aug 2021 ?Hormones: none ?? Measurements: Uterus: ??9.9 x 6.3 x 7.7 cm ?? Position is anteverted. ??Contour is irr egular w/ myomata: 1 Left 1.0 x 0.9 x 1.1 cm. ?? Endo cav: 10.5 mm ? Smooth/regula r/wnl ?? Right ovary: 3.5 x 2.6 x 2.3 cm ??Wnl Left ovary: ?? 2.8 x 2.5 x 1.7 cm Wnl ?? Cul de sac: no free fluid ?? Complete pelvic ultrasound using realtim e transabdominal and transvaginal scanning Bladder appears normal Myomatous uterus: Endometrial cavity not affected. 1 small 1 cm left fibroid noted. Normal bilateral ovaries Endometrium noted to be normal Dr. Latricia Saavedra, DO ?? Obstetrics and Gynecology [facility] Elizabeth Mcintyre CNM IMG US ORDERABLES documented in this encounter Visit Diagnoses Diagnosis Menorrhagia with irregular cycle Excessive or frequent menstruation Lipoma of skin and subcutaneous tissue Lipoma of other skin and subcutaneous ti ssue documented in this encounter Additional Health Concerns Assessment Noted Time PHQ-9 Depression Total Score: 22 06/28/2021 7:03 AM CD T documented as of this encounter Care Teams Supervisor Lead Refinery Relationship Specialty Start Date End Date Aydee Burton, PCP - General Nurse Practitioner - 05/17/21 DIRECTOR BUSINESS DEVELOPMENT UNDERGROUND ROOF BOLTER Family [address] [place] [phone] Aydee Burton, Assigned PCP 04/28/21 DIRECTOR BUSINESS DEVELOPMENT UNDERGROUND ROOF BOLTER [address] [place], [place] [address] Louisa Hood, Assigned Neuroscience 07/11/21 DIRECTOR BUSINESS DEVELOPMENT UNDERGROUND ROOF BOLTER Provider 500 [place], [place] [address] Se Levy, Lead Personal Computer Specialist 08/05/21 05/12/22 [facility] 08/05/21 09/30/21 Worker Clari Ruiz Pharmacist Pharmacist 08/06/21 06/07/22 [facility] [address] [place], [place] [phone] [place], Assigned Sleep 08/01/21 Angel Turcios, Provider [address] [place], [place] [address] Mago Swift, [facility] Lead Personal Computer Specialist Luggage Liner - 08/05/21 Clinical documented as of this encounter
--- OUTSIDE RECORDS SUMMARY | 2022-09-21 04:16 | XMS_ITS | Encounter Summary ---
:1980 Author Organization [place] Address [address] [place] [address] Care Team Providers Name Role Phone Aydee Burton WELDER GUN FIXING CARPENTER Primary Care Provider [phone] Aydee Burton WELDER GUN FIXING CARPENTER Unavailable [phone] Louisa Hood WELDER GUN FIXING CARPENTER Unavailable [phone] Se Levy ANSWERING SERVICE TELEPHONE OPERATOR Unavailable Unavailable Anny Bernabe Unavailable Unavailable Clari Ruiz [facility] Unavailable [phone] Angel Hannah MD Unavailable Mago Swift LEATHER DRIER Unavailable Reason for Visit Reason Comments Consult Several skin masses Encounter Details Date Type Department Care Team Description [facility] subcutaneous tissue [place] [address] (Primary Dx) [address] [facility] [address] [place] [address] [phone] Social History Tobacco Use Types Packs/Day Years [...] How often do you attend synagogue or confucianism services? Never 08/05/2021 Do you [...] at Date Recorded Female 11/09/2021 7:53 PM BONDED STRAND OPERATOR COVID-19 Exposure Response Date Recorded In the last month, have you been in contact with No / Unsure 08/30/2021 2:54 PM CDT someone who was confirmed or suspected to have Coronavirus / COVID-19? documented as of this encounter Last Filed Vital Signs Vital Sign Reading Time Taken Comments Blood Pressure 128/84 08/30/2021 2:57 PM CDT Pulse 112 08/30/2021 2:57 PM CDT Temperature - - Respiratory Rate 16 08/30/2021 2:57 PM CDT Oxygen Saturation 97% 08/30/2021 2:57 PM CDT Inhaled Oxygen Concentration - - Weight 90.7 kg (200 lb) 08/30/2021 2:57 PM CDT Height 170.2 cm (5' 7) 08/30/2021 2:57 PM CDT Body Mass Index 31.32 08/30/2021 2:57 PM CDT documented in this encounter Progress Notes Lesly Celaya MD - 08/30/2021 3:00 PM CDT Assessment: Marta Hill is a 41 year old female with multiple lipomas. Right thigh, left thigh, right forearm, left forearm, and back. Plan: I have offered Marta excision under MAC anesthesia. She elects to proceed with excision and will schedule at her convenience. We have discussed surgery in detail, including benefits, alternatives, complications, incision, scar, infection, anesthesia, bleeding, lifting and activity limits after surgery. All questions have beenanswered to the best of my ability. Time off work: 3-4 days Time with restricted activity 1 weeks HPI: Marta Hill is a 41 year old female who presents today in consultation for subcutaneous masses on multiple sites including anterior right and left thigh, back x 2, and bilateral forearms (one right and 2 left) Duration: many years Pain: Yes when bumped Size: stable Saw OBGYN office today who noted them and referred her here. I have reviewed these notes PMH: Past Medical History: Diagnosis Date ??? Depressive disorder as teen and on ??? Diabetes (H) not sure pre a few times ??? Hypertension 2002 only during ??? Uncomplicated asthma not sure from being sick PSH: Past Surgical History: Procedure Laterality Date ??? COSMETIC SURGERY not sure breast augmentation ??? ENT SURGERY teen years sinus for bloody noses ??? FERRY CAPTAIN SURGERY not sure tubal ligation and ablasion ??? ORTHOPEDIC SURGERY 2020 radial head fracture 3 screws Allergies: Allergies Allergen Reactions ??? Amoxicillin Itching Home Medications: Current Outpatient Medications Medication Sig [...] daily 30 tablet 2 ??? DULoxetine (CYMBALTA) 30 MG capsule Take 1 capsule (30 mg) by mouth daily Take with 60 mg dose for a total of 90 mg daily 30 capsule 1 ??? DULoxetine (CYMBALTA) 60 MG capsule Take 1 capsule (60 mg) by mouth daily Take with 30 mg dose for a total of 90 mg daily 30 capsule 1 ??? ELDERBERRY PO Take 100 mg by mouth daily ??? gabapentin (NEURONTIN) 400 MG capsule Take 1 capsule (400 mg) by mouth 4 times daily 120 capsule2 ??? ibuprofen (ADVIL/MOTRIN) 200 MG tablet Take 400-600 mg by mouth every 6 hours as needed for pain ??? lamoTRIgine (LAMICTAL) 200 MG tablet Take 1 tablet (200 mg) by mouth At Bedtime 30 tablet 2 ??? QUEtiapine (SEROQUEL) 100 MG tablet Take [...] Use Topics ??? Alcohol use: Not Currently ??? Drug use: Never Family History: Family History Problem Relation Age [...] Daughter ??? Asthma Son ??? Asthma Son PE: BP 128/84 Pulse 112 Resp 16 Ht 1.702 m (5' 7) Wt 90.7 kg (200 lb) LMP 08/23/2021 (Approximate) SpO2 97% BMI 31.32 kg/m?? General appearance: well-nourished, no apparent distress Skin: there is are multiple soft, mobile subcutaneous masses consistent with lipomas ranging from 3cm-6cm located on the right anterior thigh x1, left anterior thigh x 1, right forearm x 1, left forearm x 2, and right and left back Lesly Celaya MD Please route or send letter to: Referring Provider documented in this encounter Plan of Treatment Upcoming Encounters Date Type Specialty Care Team Description 09/26/2022 Appointment Speech Therapy Obdulio Barrera MD [address] [facility] [address] [place], [place] [address] Anabel Chew, GUIDEMAN [place] [address] [facility] [address] [place], [place] [address] 09/27/2022 Therapy Visit Physical Therapy Luisana Watkins, PT [address] [place] [address] 09/29/2022 Virtual Visit Pain & Palliative Marilia Deluna, Care PhD [address] [place] [address] 09/30/2022 Office Visit Family Practice Aydee Burton, WELDER GUN FIXING CARPENTER [address] [place] [address] [phone] 10/03/2022 Therapy Visit Physical Therapy Una Reardon, PT [address] [place] [address] 10/10/2022 Hospital Encounter Surgery Lesly Celaya MD [address] [place], [place] [phone] 10/10/2022 Office Visit Surgery Lesly Celaya MD [address] [place], [place] [address] Ninoska Flowers PA-C [address] [place], [place] [address] 10/10/2022 Surgery Surgery Lesly Celaya, EXCISION, MASSES - MD back, abdomen, [address] [place] [address] 10/11/2022 Virtual Visit Clari Su, [facility] [address] [id number] [place] [address] 10/14/2022 Appointment Speech Therapy Anabel Chew, GUIDEMAN [address] [phone] 10/21/2022 Office Visit Pulmonology Obdulio Barrera MD [address] [place] [address] 10/25/2022 PRE VISIT ENT Charo Burton MD Previsit [address] [place] [address] 10/25/2022 Office Visit ENT Charo Burton MD [address] [place] [address] [id number] 10/25/2022 Office Visit ENT Provider, Ent Dysphonia Crayon Grader 10/28/2022 Appointment Speech Therapy Anabel Chew, GUIDEMAN [address] 2639[address] 11/17/2022 Appointment Speech Therapy Anabel Chew, GUIDEMAN [address] 5160[address] 12/23/2022 Office Visit Neurology Colby Yeung, MD [address] [address] [place], [place] [phone] Scheduled Procedures Name Priority Associated Diagnoses Date/Time EXCISION, MASS, TORSO Lipoma of skin and subcuta neous 10/10/2022 7:30 AM BONDED STRAND OPERATOR tissue documented as of this encounter [...] documented as of this encounter Care Teams Cane Stripper Relationship Specialty Start Date End Date Aydee Burton, PCP - General Nurse Practitioner - 05/17/21 WELDER GUN FIXING CARPENTER Family [address] [place] [address] [phone] Aydee Burton, Assigned PCP 04/28/21 WELDER GUN FIXING CARPENTER [address] [place], [place] [phone] Louisa Hood, Assigned Neuroscience 07/11/21 WELDER GUN FIXING CARPENTER Provider [address] [place], [place] [phone] Se Levy, Lead Financial Analysis Advisor 08/05/21 05/12/22 [facility] 08/05/21 09/30/21 Worker Clari Ruiz Pharmacist Pharmacist 08/06/21 06/07/22 Jocelyn, [facility] [address] [place] [address] [place], Assigned Sleep 08/01/21 Angel Turcios, Provider [address] [place], [place] [address] Mago Swift LEATHER DRIER Lead Financial Analysis Advisor Tie Fastener - 08/05/21 Clinical documented as of this encounter
--- OUTSIDE RECORDS SUMMARY | 2022-09-21 04:16 | XMS_ITS | Encounter Summary ---
:1980 Author Organization [place] Address [address] [facility] [place] [address] Care Team Providers Name Role Phone Aydee Burton UNIT SECY PAPERHANGER PIPE Primary Care Provider [phone] Aydee Burton UNIT SECY PAPERHANGER PIPE Unavailable [phone] Louisa Hood UNIT SECY PAPERHANGER PIPE Unavailable [phone] Se Levy FINANCIAL INSTITUTION PRESIDENT Unavailable Unavailable Anny Bernabe Unavailable Unavailable Clari Ruiz [facility] Unavailable [phone] Angel Hannah MD Unavailable Lesly Celaya MD Unavailable Elizabeth Mcintyre [facility] Unavailable Mago Swift ERP MANAGER Unavailable Encounter Details Date Type Department Care Team Description 09/09/2021 Travel Social History Tobacco Use Types Packs/Day [...] How often do you attend mosque or sabianist services? Never 08/05/2021 Do you [...] at Date Recorded Female 11/09/2021 7:53 PM STUCCO WORKER COVID-19 Exposure Response Date Recorded In the last month, have you been in contact with No / Unsure 09/09/2021 8:00 PM CDT someone who was confirmed or suspected to have Coronavirus / COVID-19? documented as of this encounter Plan of Treatment Upcoming Encounters Date Type Specialty Care Team Description 09/26/2022 Appointment Speech Therapy Obdulio Barrera MD [address] [facility] [address] [place] [address] Anabel Chew, SENIOR PHP SOFTWARE DEVELOPER [address] [place], [place] [address] 09/27/2022 Therapy Visit Physical Therapy Luisana Watkins, PT [address] [place] [address] 09/29/2022 Virtual Visit Pain & Palliative Marilia Deluna, Ronald PhD [address] [place], [place] [phone] 09/30/2022 Office Visit Family Practice Micheal Aydee Mendez, UNIT SECY PAPERHANGER PIPE [address] [place] [address] 10/03/2022 Therapy Visit Physical Therapy David-Una Tang, PT [address] [place] [address] 10/10/2022 Hospital Encounter Surgery Lesly Celaya MD [address] [place] [address] 10/10/2022 Office Visit Surgery Lesly Celaya MD [address] [place] [address] Ninoska Flowers PA-Ynes [address] [place] [address] 10/10/2022 Surgery Surgery Lesly Celaya, EXCISION, MASSES - MD back, abdomen, [address] [place] [address] 10/11/2022 Virtual Visit Pharm Clari Stoll, [facility] [address] [phone] 10/14/2022 Appointment Speech Therapy Anabel Chew, SENIOR PHP SOFTWARE DEVELOPER [facility] [address] [facility] 396 [place] [address] 10/21/2022 Office Visit Pulmonology Obdulio Barrera MD [address] [facility] [address] [place], [place] [address] 10/25/2022 PRE VISIT ENT Charo Burton MD Previsit [address] [place] [address] 10/25/2022 Office Visit ENT Charo Burton MD 9 [place] [address] 10/25/2022 Office Visit ENT Provider, Jeannette Ent Dysphonia Fibre Technologist 10/28/2022 Appointment Speech Therapy Anabel Chew, SENIOR PHP SOFTWARE DEVELOPER [address] [address] 11/17/2022 Appointment Speech Therapy Anabel Chew, SENIOR PHP SOFTWARE DEVELOPER [address] [address] 12/23/2022 Office Visit Neurology Colby Yeung MD [address] [place] [address] Scheduled Procedures Name Priority Associated Diagnoses Date/Time EXCISION, MASS, TORSO Lipoma of skin and subcuta neous 10/10/2022 7:30 AM STUCCO WORKER tissue documented as of this encounter Visit Diagnoses Not on filedocumented in this encounter Additional Health Concerns Assessment Noted Time PHQ-9 Depression Total Score: 22 06/28/2021 7:03 AM CD T documented as of this encounter Care Teams Roof Panel Hanger Relationship Specialty Start Date End Date Aydee Burton, PCP - General Nurse Practitioner - 05/17/21 UNIT SECY PAPERHANGER PIPE Family [address] [place], [place] [phone] Aydee Burton, Assigned PCP 04/28/21 UNIT SECY PAPERHANGER PIPE [address] [place], [place] [phone] Louisa Hood, Assigned Neuroscience 07/11/21 UNIT SECY PAPERHANGER PIPE Provider [address] [place], [place] [phone] Se Levy, Lead Instrument Repair Supervisor 08/05/21 05/12/22 [facility] 08/05/21 09/30/21 Worker Clari Ruiz Pharmacist Pharmacist 08/06/21 06/07/22 [facility] [address] [place] [address] [place], Assigned Sleep 08/01/21 Angel Turcios, Provider [address] [place] [address] Lesly Celaya MD Assigned Surgical 09/05/[address] [place] [address] Elizabeth Mcintyre CNM Assigned OBGYN 09/05/21 11/06/[id number] [place] [address] Mago Swift, [facility] Lead Instrument Repair Supervisor Carbon Capture Power Plant Operator - 08/05/21 Clinical documented as of this encounter
--- OUTSIDE RECORDS SUMMARY | 2022-09-21 04:16 | XMS_ITS | Encounter Summary ---
:1980 Author Organization [place] Address [address] [facility] [place] [address] Care Team Providers Name Role Phone Aydee Burton CALENDAR CONTROL CLERK BLOOD BANK HOUSE MOVER SUPERVISOR Primary Care Provider Aydee Burton CALENDAR CONTROL CLERK BLOOD BANK HOUSE MOVER SUPERVISOR Unavailable [phone] Louisa Hood CALENDAR CONTROL CLERK BLOOD BANK HOUSE MOVER SUPERVISOR Unavailable [phone] Se Levy COLLECTOR OF INTERNAL REVENUE Unavailable Unavailable Anny Bernabe Unavailable Unavailable Clari Ruiz [facility] Unavailable Angel Hannah MD Unavailable Lesly Celaya MD Unavailable Elizabeth Mcintyre [facility] Unavailable Mago Swift EDUCATION DIAGNOSTICIAN Unavailable Reason for Referral Consultation (Routine) - Pending Review Specialty Diagnoses / Procedures Referred By Contact Refer red To Contact Diagnoses Snoring Angel Hannah MD [address] [place], [place] [address] Referral ID Status Reason Start Date Expiration Date Visits V isits Requested Authorized [id number] Pending 09/24/2021 09/24/2022 1 1 Review CIATE PRODUCER Reason for Visit Reason Comments Sleep Study Encounter Details Date Type Department Care Team Description 09/24/2021 Virtual Visit [facility] Latasha Hannah (Primary [facility] Angel Turcios, Dx) [place] [address] [address] [place] [address] [place], [place] [phone] (Wo rk) [address] [phone] Social History Tobacco Use Types Packs/Day Years [...] How often do you attend jewish or mormonism services? Never 08/05/2021 Do you [...] at Date Recorded Female 11/09/2021 7:53 PM ASSOCIATE PRODUCER COVID-19 Exposure Response Date Recorded In the last month, have you been in contact with No / Unsure 09/09/2021 8:00 PM CDT someone who was confirmed or suspected to have Coronavirus / COVID-19? documented as of this encounter Patient Instructions Patient InstructionsTiera Min, ISMA - 09/24/2021 1:00 PM CST Your BMI is There is no height or weight on file to calculate BMI. Weight management is a personal decision. If you are interested in exploring weight loss strategies,the following discussion covers the approaches that may be successful. Body mass index (BMI) is one way to tell whether you are at a healthy weight, overweight, or obese. It measures your weight in relation to your height. A BMI of 18.5 to 24.9 is in the healthy range. A person with a BMI of 25 to 29.9 is considered overweight, and someone with a BMI of 30 or greater is considered obese. More than two-thirds of [place] adults are considered overweight or obese. Being overweight or obese increases the risk for further weight gain. Excess weight may lead to heart disease and diabetes. Creating and following plans for healthy eating and physical activity may help you improve your health. Weight control is part of healthy lifestyle and includes exercise, emotional health, and healthy eating habits. Careful eating habits lifelong are the mainstay of weight control. Though there are significant health benefits from weight loss, long-term weight loss with diet alone may be very difficult to achieve- studies show long-term success with dietary management in less than 10% of people. Attaining a healthy weight may be especially difficult to achieve in those with severe obesity. In some cases, medications, devices and surgical management might be considered. What can you do? If you are overweight or obese and are interested in methods for weight loss, you should discuss this with your provider. ??? Consider reducing daily calorie intake by 500 calories. ??? Keep a food journal. ??? Avoiding skipping meals, consider cutting portions instead. Diet combined with exercise helps maintain muscle while optimizing fat loss. Strength training is particularly important for building and maintaining muscle mass. Exercise helps reduce stress, increaseenergy, and improves fitness. Increasing exercise without diet control, however, may not burn enoughcalories to loose weight. ??? Start walking three days a week 10-20 minutes at a time ??? Work towards walking thirty minutes five days a week ??? Eventually, increase the speed of your walking for 1-2 minutes at time In addition, we recommend that you review healthy lifestyles and methods for weight loss available through the National Institutes of Health patient information sites: http://win.niddk.nih.gov/publications/index.htm And look into health and wellness programs that may be available through your health insurance provider, employer, local community center, or hamzah club. Weight management plan: Patient was referred to their PCP to discuss a diet and exercise plan. CIATE PRODUCER documented in this encounter Progress Notes Angel Hannah MD - 09/24/2021 1:00 PM CST Images from the original note were not included. Marta is a 41 year old who is being evaluated via a billable video visit. Are you in the [facility] for this visit? Yes How would you like to obtain your AVS? MyChart If the video visit is dropped, the invitation should be resent by: Text to cell phone: [phone] Will anyone else be joining your video visit? No Video-Visit Details Type of service: Video Visit Video Start Time: Start: 09/24/2021 01:09 pm Stop: 09/24/2021 01:25 pm Originating Location (pt. Location): Home Distant Location (provider location): [facility] Platform used for Video Visit: [facility] Sleep clinic follow up visit note Date on this visit: 09/24/2021 Primary Physician: Aydee Burton Chief complaint: review PSG results Marta Hill 41 year old with PMH depression, PTSD, who presents for video visit to review sleepstudy results. Date of PSG 09/09/21. Sleep study report: Date:09/09/21 ?? Sleep Architecture: Sleep architecture was remarkable for prolonged initial sleep latency and reduced sleep efficiency. All sleep stages were observed. REM sleep was reduced. The total recording time of the polysomnogram was 492.8 minutes. The total sleep time was 386.5 minutes. Sleep latency was increased at 59.9 minutes without the use of a sleep aid. REM latency was 179.0 minutes. Arousal index was normal at 13.0 arousals per hour. Sleep efficiency was decreased at 78.4%. Wake after sleep onset was 46.5 minutes. The patient spent 9.3% of total sleep time in Stage N1, 60.0% in Stage N2, 15.4% in Stage N3, and 15.3% in REM. Time in REM supine was 59.0 minutes. ?? Respiration: Snoring was reported. Though there were some obstructive events that predominantly noted during supine sleep, there is no evidence of clinically significant obstructive sleep apnea based on the overall apnea-hypopnea index being less than 5 events per hour. ?? Events ? The polysomnogram revealed a presence of 1 obstructive, 1 central, and - mixed apneas resulting in an apnea index of 0.3 events per hour. There were 29 obstructive hypopneas and - central hypopneas resulting in an obstructive hypopnea index of 4.5 and central hypopnea index of - events per hour. The combined apnea/hypopnea index was 4.8 events per hour (central apnea/hypopnea index was 0.2 events per hour). The REM AHI was 4.1 events per hour. The supine AHI was 7.6 events per hour. The RERA index was 0.2 events per hour. The RDI was 5.0 events per hour. ?? Snoring - was reported as moderate and intermittent. ?? Respiratory rate and pattern - was notable for normal respiratory rate and pattern. ?? Sustained Sleep Associated Hypoventilation - Transcutaneous carbon dioxide monitoring was not used, however significant hypoventilation was not suggested by oximetry. ?? Sleep Associated Hypoxemia - (Greater than 5 minutes O2 sat at or below 88%) was not present. Baseline oxygen saturation was 94.4%. Lowest oxygen saturation was 83.1%. Time spent less than or equal to 88% was 0.1 minutes. Time spent less than or equal to 89% was 0.1 minutes. ?? Movement Activity: Frequent periodic limb movements were observed; however, they were not associatedwith significant arousals. REM sleep without atonia was noted in some epochs. Clinical correlation for RBD is suggested. Periodic Limb Activity - There were 233 PLMs during the entire study. The PLM index was 36.2 movements per hour. The PLM Arousal Index was 1.6 per hour. ?? REM EMG Activity - Excessive transient muscle activity was present in some epochs. ?? Nocturnal Behavior - Abnormal sleep related behaviors were not noted during/arising out of NREM /REM sleep. ?? Bruxism - None apparent. ?? Cardiac Summary: Normal sinus rhythm was noted with occasional sinus tachycardia. The average pulse rate was 86.7 bpm. The minimum pulse rate was 74.0 bpm while the maximum pulse rate was 111.0 bpm. Normal sinus rhythm was noted with occasional sinus tachycardia. ?? Assessment: ?? Snoring was reported. Though there were some obstructive events that predominantly noted during supine sleep, there is no evidence of clinically significant obstructive sleep apnea based on the overall apnea-hypopnea index being less than 5 events per hour. ?? Sleep architecture was remarkable for prolonged initial sleep latency and reduced sleep efficiency. All sleep stages were observed. REM sleep was reduced. ?? Frequent periodic limb movements were observed; however, they were not associated with significant arousals. ?? REM sleep without atonia was noted in some epochs. Clinical correlation for RBD is suggested. Abnormal sleep related behaviors were not noted. ?? Normal sinus rhythm was noted with occasional sinus tachycardia. ?? Test results were discussed with patient in detail. Allergies: Allergies Allergen Reactions ??? Amoxicillin Itching Medications: Current Outpatient Medications Medication Sig Dispense [...] tablet Take 1 tablet by mouth daily Problem List: Patient Active Problem List Diagnosis Date Noted [...] ??? Neck pain 06/03/2021 Priority: Medium Past Medical/Surgical History: Past Medical History: Diagnosis Date ??? Depressive disorder as teen and on ??? Diabetes (H) not sure pre a few times ??? Hypertension 2002 only during ??? Uncomplicated asthma not sure from being sick Past Surgical History: Procedure Laterality Date ??? COSMETIC SURGERY not sure breast augmentation ??? ENT SURGERY teen years sinus for bloody noses ??? MELTER OPERATOR SURGERY not sure tubal ligation and ablasion ??? ORTHOPEDIC SURGERY 2020 radial head fracture 3 screws Social History: Social History Socioeconomic History ??? Marital status: [...] Sexual Activity ??? Alcohol use: Not Currently ??? Drug use: Never ??? Sexual activity: Yes Partners: Male control/protection: Female Surgical Other Topics Concern ??? Parent/sibling w/ CABG, CO or angioplasty before 65F 55M? No Social [...] with Friends and Family: Never ??? Attends Restorationist Services: Never ??? Active Member of Clubs or Organizations: No ??? Attends Club or Organization Meetings: Not on file ??? Marital Status: Intimate Partner Violence: Not on file Housing Stability: High Risk ??? Unable to Pay for Housing in the Last Year: Yes ??? Number of Places Lived in the Last Year: 1 ??? Unstable Housing in the Last Year: No Family History: Family History Problem Relation Age [...] Daughter ??? Asthma Son ??? Asthma Son Physical Examination: Per EMR: Ht:5' 7; Wt:200 lb; BMI: 31.3 Kg/m2 [place] Total Score 09/21/2021 Total score - [place] 18 General: No apparent distress, appropriately groomed Chest: No cough, no audible wheezing, able to talk in full sentences Psych: coherent speech, normal rate and volume, able to articulate logical thoughts, able to abstract reason, no tangential thoughts, no hallucinations or delusions Her affect is normal Neuro: Mental status: Alert and Oriented X 3 Speech: normal Gait: Normal No focal neurological deficit Impression/Plan: 1. Snoring was reported during the [...] daytime sleepiness for reevaluation for sleep apnea. Patient was strongly advised to avoid driving, operating any heavy machinery or other hazardous situations while drowsy or sleepy. Patient was counseled on the importance of driving while alert, to mandrel puller if drowsy, or nap before getting into the vehicle if sleepy. CC: No ref. provider found The above note was dictated using voice recognition software. Although reviewed after completion, some word and grammatical error may remain . Please contact the author for any clarifications. I spent a total of 35 minutes with Marta Hill during today's video visit. Over 50% of this time was spent counseling the patient and coordinating care regarding snoring, positional therapy during sleep, dental appliance, PLM's, weight management, going over sleep study , chart review including documentation and further activities as noted above. Angel Hannah MD [facility] Floor 1, [address] [place] [address] Appointments: [phone] CIATE PRODUCER Paula Domínguez CMA - 09/24/2021 1:00 PM CST Dental referral and sleep study report have been mailed to patients home address today. Zzoma pillow order, brochure, and fact sheet have also been mailed to patient Oralia Espinal. GREGORIO, SLEEP MEDICINE, 09/27/2021 8:29 AM CIATE PRODUCER documented in this encounter Plan of Treatment Upcoming Encounters Date Type Specialty Care Team Description 09/26/2022 Appointment Speech Therapy Obdulio Barrera MD [address] [facility] [address] [place], [place] [address] Anabel Chew, STOGY MAKER [place] 0[address] [facility] [address] [place] [address] 09/27/2022 Therapy Visit Physical Therapy Luisana Watkins, PT [address] [place] [address] 09/29/2022 Virtual Visit Pain & Palliative Marilia Deluna, Care PhD [address] [place] [address] 09/30/2022 Office Visit Family Practice Aydee Burton, ELADIO HOUSE MOVER SUPERVISOR [address] [place], [place] [phone] 10/03/2022 Therapy Visit Physical Therapy Una Reardon, PT [address] [place] [address] 10/10/2022 Hospital Encounter Surgery Lesly Celaya MD [address] [place], [place] [address] 10/10/2022 Office Visit Surgery Lesly Celaya MD [address] [place] [address] Ninoska Flowers PA-C [address] [place] [address] 10/10/2022 Surgery Surgery Lesly Celaya, EXCISION, MASSES - MD back, abdomen, [address] [place] [address] 10/11/2022 Virtual Visit Pharm Clari Stoll, [facility] [address] [id number] [place], [place] [address] 10/14/2022 Appointment Speech Therapy Anabel Chew, STOGY MAKER [facility] [address] [facility] [address] [place], [place] [address] 10/21/2022 Office Visit Pulmonology Obdulio Barrera MD [address] [facility] 276 [place], [place] [address] 10/25/2022 PRE VISIT ENT Charo Burton MD Previsit [address] [place], [place] [phone] 10/25/2022 Office Visit ENT Charo Burton MD [address] [place], [place] [address] 10/25/2022 Office Visit ENT Provider, Ent Dysphonia Gas Appliance Adjuster 10/28/2022 Appointment Speech Therapy Anabel Chew, STOGY MAKER [address] [id number] 11/17/2022 Appointment Speech Therapy Anabel Chew, STOGY MAKER [address] [address] 12/23/2022 Office Visit Neurology Colby Yeung MD [address] [id number] Scheduled Procedures Name Priority Associated Diagnoses Date/Time EXCISION, MASS, TORSO Lipoma of skin and subcuta neous 10/10/2022 7:30 AM ASSOCIATE PRODUCER tissue Scheduled Referrals Name Type Priority Associated Diagnoses Order S chedule SLEEP DENTAL Referral Routine: Next Snoring Expected: REFERRAL available opening 09/24/2021 (Approximate), Expires: 09/24/2022 documented as of this encounter Visit Diagnoses Diagnosis Snoring - Primary Other dyspnea and respiratory abnormalit y Lipoma of skin and subcutaneous tissue Lipoma of other skin and subcutaneous ti ssue documented in this encounter Additional Health Concerns Assessment Noted Time PHQ-9 Depression Total Score: 22 06/28/2021 7:03 AM CD T documented as of this encounter Care Teams Commercial Artist Relationship Specialty Start Date End Date Aydee Burton, PCP - General Nurse Practitioner - 05/17/21 CALENDAR CONTROL CLERK BLOOD BANK HOUSE MOVER SUPERVISOR Family [address] [place] [address] [id number] Aydee Burton, Assigned PCP 04/28/21 CALENDAR CONTROL CLERK BLOOD BANK HOUSE MOVER SUPERVISOR [address] [place] [address] [id number] Louisa Hood, Assigned Neuroscience 07/11/21 CALENDAR CONTROL CLERK BLOOD BANK HOUSE MOVER SUPERVISOR Provider [address] [place] [address] [id number] Se Levy, Lead Acting Instructor 08/05/21 05/12/22 [facility] 08/05/21 09/30/21 Worker Clari Ruiz Pharmacist Pharmacist 08/06/21 06/07/22 [facility] [address] [place] [address] [place], Assigned Sleep 08/01/21 Angel Turcios, Provider [address] [place] [address] Lesly Celaya MD Assigned Surgical 09/05/[address] [place] [address] Elizabeth Mcintyre CNM Assigned OBGYN 09/05/21 11/06/21 [address] [facility] [place] [address] Mago Swift EDUCATION DIAGNOSTICIAN Lead Acting Instructor Wringer Machine Operator - 08/05/21 Clinical documented as of this encounter
--- OUTSIDE RECORDS SUMMARY | 2022-09-21 04:16 | XMS_ITS | Encounter Summary ---
:1980 Author Organization [place] Address [address] [place] [address] Care Team Providers Name Role Phone Aydee Nam CERAMIC PRODUCTS SALES ENGINEER RESTAURANT CREW MEMBER Primary Care Provider [phone] Aydee Nam CERAMIC PRODUCTS SALES ENGINEER RESTAURANT CREW MEMBER Unavailable [phone] Louisa Hood CERAMIC PRODUCTS SALES ENGINEER RESTAURANT CREW MEMBER Unavailable [phone] Se Levy CERTIFIED NURSING ATTENDANT Unavailable Unavailable Anny Bernabe Unavailable Unavailable Clari Ruiz [facility] Unavailable [phone] Angel Hannah MD Unavailable Mago Swift CHIEF NURSE EXECUTIVE Unavailable Reason for Visit Reason Onset Date Comments Schedule Surgery 08/30/2021 EXCISION MULTIPLE LI POMAS, BILATERAL FOREARMS, BILATERAL THIGH, AND TRUNK MAC PT INST TO HAVE H&P WITH DR CYRIL HOLMAN REQ PA ASSIST LISA S NMS Encounter Details Date Type Department Care Team Description 08/30/2021 Telephone [facility] Maggy Celaya MD Schedule Surgery Surgery Clinic [address] ([place] [address] LIPOMAS, BILATERAL [address] FOREARMS, BILATERAL [address] THIGH, AND TRUNK [facility] MA PT INST TO MERYL PATRICK H&P [address] CYRIL HOLMAN REKimberli [phone] PA ASSIST JHON N MS ) Social History Tobacco Use Types Packs/Day Years [...] How often do you attend mormonism or restoration services? Never 08/05/2021 Do you [...] at Date Recorded Female 11/09/2021 7:53 PM DEICER TESTER COVID-19 Exposure Response Date Recorded In the last month, have you been in contact with No / Unsure 08/30/2021 2:54 PM CDT someone who was confirmed or suspected to have Coronavirus / COVID-19? documented as of this encounter Miscellaneous Notes Telephone Encounter - Oralia Conway CMA - 08/30/2021 3:49 PM CDT Type of surgery: EXCISION MULTIPLE LIPOMAS, BILATERAL FOREARMS, BILATERAL THIGH, AND TRUNK Location of surgery: [facility] Date and time of surgery: 10/12/2021 @ 1:00 PM Surgeon: Lesly Celaya MD Pre-Op Appt Date: PATIENT TO SCHEDULE Post-Op Appt Date: PATIENT TO SCHEDULE Packet sent out: Yes Pre-cert/Authorization completed: Not Applicable Date: 08/30/2021 EXCISION MULTIPLE LIPOMAS, BILATERAL FOREARMS, BILATERAL THIGH, AND TRUNK MAC PT INST TO HAVE H&P WITH DR NAM MIN REQ PA ASSIST JLS NMS documented in this encounter Plan of Treatment Upcoming Encounters Date Type Specialty Care Team Description 09/26/2022 Appointment Speech Therapy Obdulio Barrera MD [address] [facility] 276 [place], [place] [address] Anabel Chew, GENERAL INTERNAL MEDICINE DOCTOR [address] [place], [place] [address] 09/27/2022 Therapy Visit Physical Therapy Luisana Watkins, PT [address] [place] [address] 09/29/2022 Virtual Visit Pain & Palliative Marilia Deluna, Care PhD [address] [place] [address] 09/30/2022 Office Visit Family Practice Aydee Nam, CERAMIC PRODUCTS SALES ENGINEER RESTAURANT CREW MEMBER [address] [place] [address] 10/03/2022 Therapy Visit Physical Therapy Una Reardon, PT [address] [place] [address] 10/10/2022 Hospital Encounter Surgery Lesly Celaya MD [address] [place] [phone] 10/10/2022 Office Visit Surgery Lesly Celaya MD [address] [place] [address] Ninoska Flowers PA-C [address] [place] [address] 10/10/2022 Surgery Surgery Lesly Celaya, EXCISION, MASSES - MD back, abdomen, [address] [place] [address] 10/11/2022 Virtual Visit Pharm Bryce Ruiz, Clari Banks, [facility] [address] [phone] 10/14/2022 Appointment Speech Therapy Anabel Chew, GENERAL INTERNAL MEDICINE DOCTOR [address] [address] 10/21/2022 Office Visit Pulmonology Obdulio Barrera MD [address] [place] [address] 276 [place], [place] [address] 10/25/2022 PRE VISIT ENT Charo Burton MD Previsit [address] [place] [phone] 10/25/2022 Office Visit Charo Carter MD [address] [place] [address] 10/25/2022 Office Visit ENT Provider, Ent Dysphonia Ultrasound Coordinator 10/28/2022 Appointment Speech Therapy Anabel Chew, GENERAL INTERNAL MEDICINE DOCTOR [address] 3[address] 11/17/2022 Appointment Speech Therapy Anabel Chew, GENERAL INTERNAL MEDICINE DOCTOR [facility] 516 [facility] 396 [place] [address] 12/23/2022 Office Visit Neurology Colby Yeung MD [address] [facility] [place] [address] Scheduled Procedures Name Priority Associated Diagnoses Date/Time EXCISION, MASS, TORSO Lipoma of skin and subcuta neous 10/10/2022 7:30 AM DEICER TESTER tissue documented as of this encounter Visit Diagnoses Not on filedocumented in this encounter Additional Health Concerns Assessment Noted Time PHQ-9 Depression Total Score: 22 06/28/2021 7:03 AM CD T documented as of this encounter Care Teams Toy Mechanic Relationship Specialty Start Date End Date Aydee Nam, PCP - General Nurse Practitioner - 05/17/21 CERAMIC PRODUCTS SALES ENGINEER RESTAURANT CREW MEMBER Family [address] [place] [address] [phone] Aydee Nam, Assigned PCP 04/28/21 CERAMIC PRODUCTS SALES ENGINEER RESTAURANT CREW MEMBER [address] [place] [address] Louisa Hood, Assigned Neuroscience 07/11/21 CERAMIC PRODUCTS SALES ENGINEER RESTAURANT CREW MEMBER Provider [address] [place] [address] Se Levy, Lead Crystal Lapper 08/05/21 05/12/22 [facility] 08/05/21 09/30/21 Worker Clari Ruiz Pharmacist Pharmacist 08/06/21 06/07/[address] [facility] [address] [facility] [address] [place] [address] [place], Assigned Sleep 08/01/21 Angel Turcios, Provider [address] [address] Mago Swift, [facility] Lead Crystal Lapper Staff Physician - 08/05/21 Clinical documented as of this encounter
--- OUTSIDE RECORDS SUMMARY | 2022-09-21 04:16 | XMS_ITS | Encounter Summary ---
:1980 Author Organization [place] Address [address] [place] [address] Care Team Providers Name Role Phone Aydee Burton MARKET RELATIONSHIP MANAGER CRIME DATA SPECIALIST Primary Care Provider [phone] Aydee Burton MARKET RELATIONSHIP MANAGER CRIME DATA SPECIALIST Unavailable [phone] Louisa Hood MARKET RELATIONSHIP MANAGER CRIME DATA SPECIALIST Unavailable [phone] Se Levy LIFE CLAIMS EXAMINER Unavailable Unavailable Anny Bernabe Unavailable Unavailable Clari Ruiz [facility] Unavailable Angel Hannah MD Unavailable Lesly Celaya MD Unavailable Elizabeth Mcintyre [facility] Unavailable Mago Swift SOFTWARE QUALITY TEST ENGINEER Unavailable Reason for Visit Reason Onset Date Comments Referral 09/17/2021 New Evaluation for C omprehensive Services Encounter Details Date Type Department Care Team Description 09/17/2021 Telephone [facility] Pain Management Referra l (New Pain Management Program, [place] [facility]) [address] [place] [address] Social History Tobacco Use Types [...] How often do you attend confucianism or mandaen services? Never 08/05/2021 Do you [...] at Date Recorded Female 11/09/2021 7:53 PM WELLNESS SPA MANAGER COVID-19 Exposure Response Date Recorded In the last month, have you been in contact with No / Unsure 09/09/2021 8:00 PM CDT someone who was confirmed or suspected to have Coronavirus / COVID-19? documented as of this encounter Miscellaneous Notes Telephone Encounter - Belinda Roper - 09/17/2021 10:01 AM CDT Pain Management Center Referral 1. Confirmed address with patient? Yes 2. Confirmed phone number with patient? Yes 3. Confirmed referring provider? Yes 4. Is the PCP the same as the referring provider? Yes 5. Has the patient been to any previous pain clinics? No (If yes, send S[place] with welcome letter) 6. Which insurance are we to bill for this appointment? [facility] 7. Informed pt of cancellation (48 hour) policy? Yes REGARDING OPIOID MEDICATIONS: We will always address appropriateness of opioid pain medications, butwe generally will not automatically take on a prescribing role. When we do take on prescribing of opioids for chronic pain, it is in collaboration with the referring physician for an intermediate period of time (months), with an expectation that the primary physician or provider will assume the prescribing role if medications are effective at stable doses with demonstrated compliance. Therefore, please do not assume that your prescribing responsibilities end on the day of pain clinic consultation. 8. Informed pt of prescribing policy? Yes 9.Please be aware that once you are established with a pain provider and location, you will need to continue have all future visits with that provider and location. It is best to determine what location is the most convenient for you and schedule with that one. PATIENT INFORMED OF THIS POLICY Yes 9. Referring Provider: Aydee Burton 10. Criteria for Triage Eval: -Missed/Failed 1st appointment? N/A -Medication Focused? N/A -Mental Health Concerns? (e.g. Recent psych hospitalization/snap shot)? N/A -Active substance abuse? N/A -Patient behaviors (e.g. Offensive language/raised voice)? N/A Belinda Ortega Chief Nursing Officer [facility] Pain Management documented in this encounter Plan of Treatment Upcoming Encounters Date Type Specialty Care Team Description 09/26/2022 Appointment Speech Therapy Obdulio Barrera MD [address] [facility] [address] [place], [place] [address] Anabel Chew, CRYSTALIZER [facility] [address] [facility] [address] [place], [place] [address] 09/27/2022 Therapy Visit Physical Therapy Luisana Watkins, PT [address] [place] [address] 09/29/2022 Virtual Visit Pain & Palliative Marilia Deluna, oRnald PhD [address] [place], [place] [address] 09/30/2022 Office Visit Family Practice Micheal Aydee Mendez, MARKET RELATIONSHIP MANAGER CRIME DATA SPECIALIST [address] [place], [place] [phone] 10/03/2022 Therapy Visit Physical Therapy Una Reardon, PT [address] [place] [address] 10/10/2022 Hospital Encounter Surgery Lesly Celaya MD [address] [place] [address] 10/10/2022 Office Visit Surgery Lesly Celaya MD [address] [place] [address] Ninoska Flowers PA-Ynes [address] [place] [address] 10/10/2022 Surgery Surgery Lesly Celaya, EXCISION, MASSES - MD back, abdomen, [address] [place] [address] 10/11/2022 Virtual Visit Pharm Clari Stoll, [facility] [address] [id number] 10/14/2022 Appointment Speech Therapy Anabel Chew, CRYSTALIZER [facility] [address] [facility] [address] [place], [place] [address] 10/21/2022 Office Visit Pulmonology Obdulio Barrera MD [address] [facility] [address] [place], [place] [address] 10/25/2022 PRE VISIT ENT Charo Burton MD Previsit [address] [place] [address] 10/25/2022 Office Visit ENT Charo Burton MD [address] [place] [address] 10/25/2022 Office Visit ENT Provider, Ent Dysphonia Comfort Filler 10/28/2022 Appointment Speech Therapy Anabel Chew, CRYSTALIZER [address] [address] 11/17/2022 Appointment Speech Therapy Anabel Chew, CRYSTALIZER [address] [address] 12/23/2022 Office Visit Neurology Colby Yeung MD [address] [address] Scheduled Procedures Name Priority Associated Diagnoses Date/Time EXCISION, MASS, TORSO Lipoma of skin and subcuta neous 10/10/2022 7:30 AM WELLNESS SPA MANAGER tissue documented as of this encounter Visit Diagnoses Not on filedocumented in this encounter Additional Health Concerns Assessment Noted Time PHQ-9 Depression Total Score: 22 06/28/2021 7:03 AM CD T documented as of this encounter Care Teams Technical Manager Relationship Specialty Start Date End Date Aydee Burton, PCP - General Nurse Practitioner - 05/17/21 MARKET RELATIONSHIP MANAGER CRIME DATA SPECIALIST Family [address] [place], [place] [phone] Aydee Burton, Assigned PCP 04/28/21 MARKET RELATIONSHIP MANAGER CRIME DATA SPECIALIST [address] [place], [place] [phone] Louisa Hood, Assigned Neuroscience 07/11/21 MARKET RELATIONSHIP MANAGER CRIME DATA SPECIALIST Provider [address] [place], [place] [address] Se Levy, Lead Senior Solutions Consultant 08/05/21 05/12/22 [facility] 08/05/21 09/30/21 Worker Clari Ruiz Pharmacist Pharmacist 08/06/21 06/07/22 [facility] [address] [place] [address] [place], Assigned Sleep 08/01/21 Angel Turcios, Provider [address] [place] [address] Lesly Celaya MD Assigned Surgical 09/05/[address] [place] [address] Elizabeth Mcintyre CNM Assigned OBGYN 09/05/21 11/06/[address] [place] [address] Mago Swift, SOFTWARE QUALITY TEST ENGINEER Lead Senior Solutions Consultant Corrosion Engineer - 08/05/21 Clinical documented as of this encounter
--- OUTSIDE RECORDS SUMMARY | 2022-09-21 04:16 | XMS_ITS | Encounter Summary ---
:1980 Author Organization [place] Address [address] [facility] [place] [address] Care Team Providers Name Role Phone Aydee Burton ASSEMBLER FOR PULLER OVER MACHINE COWLMAN Primary Care Provider [phone] Aydee Burton ASSEMBLER FOR PULLER OVER MACHINE COWLMAN Unavailable [phone] Louisa Hood ASSEMBLER FOR PULLER OVER MACHINE COWLMAN Unavailable [phone] Se Levy ASSISTANT ATHLETIC TRAINER Unavailable Unavailable Anny Bernabe Unavailable Unavailable Clari Ruiz [facility] Unavailable [phone] Angel Hannah MD Unavailable Mago Swift SLIP COVER CUTTER Unavailable Encounter Details Date Type Department Care Team Description 08/31/2021 Travel Social History Tobacco Use Types Packs/Day [...] How often do you attend amish or anglican services? Never 08/05/2021 Do you [...] at Date Recorded Female 11/09/2021 7:53 PM BARREL ENDSHAKE ADJUSTER COVID-19 Exposure Response Date Recorded In the [...] [facility] [address] [place], [place] [address] Anabel Chew, VERIFICATION LEAD [address] [place], [place] [address] 09/27/2022 Therapy Visit Physical Therapy Luisana Watkins, PT [address] [place] [address] 09/29/2022 Virtual Visit Pain & Palliative Marilia Deluna, Care PhD [address] [place] [address] 09/30/2022 Office Visit Family Practice Aydee Burton, ASSEMBLER FOR PULLER OVER MACHINE COWLMAN [address] [place] [address] 10/03/2022 Therapy Visit Physical Therapy Una Reardon, PT [address] [place] [phone] 10/10/2022 Hospital Encounter Surgery eLsly Celaya MD [address] [place] [address] 10/10/2022 Office Visit Surgery Lesly Celaya MD [address] [place] [address] Ninoska Flowers, PA-C [address] [place] [address] 10/10/2022 Surgery Surgery Lesly Celaya, EXCISION, MASSES - back, abdomen, [address] [place] [address] 10/11/2022 Virtual Visit Clari Su, [facility] [address] [phone] [place], [place] [address] 10/14/2022 Appointment Speech Therapy Anabel Chew, VERIFICATION LEAD [facility] [address] [facility] [address] [place], [place] [address] 10/21/2022 Office Visit Pulmonology Obdulio Barrera MD [address] [facility] [address] [place], [place] [phone] 10/25/2022 PRE VISIT ENT Charo Burton MD Previsit [address] [place] [address] 10/25/2022 Office Visit ENT Charo Burton MD [address] [place], [place] [address] 10/25/2022 Office Visit ENT Provider, Jeannette Ent Dysphonia Investigator Operator 10/28/2022 Appointment Speech Therapy Anabel Chew, VERIFICATION LEAD [address] [address] 11/17/2022 Appointment Speech Therapy Anabel Chew, VERIFICATION LEAD [address] [address] 12/23/2022 Office Visit Neurology Colby Yeung MD [address] [id number] Scheduled Procedures Name Priority Associated Diagnoses Date/Time EXCISION, MASS, TORSO Lipoma of skin and subcuta neous 10/10/2022 7:30 AM BARREL ENDSHAKE ADJUSTER tissue documented as of this encounter Visit Diagnoses Not on filedocumented in this encounter Additional Health Concerns Assessment Noted Time PHQ-9 Depression Total Score: 22 06/28/2021 7:03 AM CD T documented as of this encounter Care Teams Materials Director Relationship Specialty Start Date End Date Aydee Burton, PCP - General Nurse Practitioner - 05/17/21 ASSEMBLER FOR PULLER OVER MACHINE COWLMAN Family [address] [place] [phone] Aydee Burton, Assigned PCP 04/28/21 ASSEMBLER FOR PULLER OVER MACHINE [address] [phone] Louisa Hood, Assigned Neuroscience 07/11/21 ASSEMBLER FOR PULLER OVER MACHINE COWLMAN Provider [address] [place] [phone] Se Levy, Lead Food Preservation Scientist 08/05/21 05/12/22 [facility] 08/05/21 09/30/21 Worker Clari Ruiz Pharmacist Pharmacist 08/06/21 06/07/22 [facility] [address] [place] [address] [place], Assigned Sleep 08/01/21 Angel Turcios, Provider [address] [place] [address] Mago Swift, [facility] Lead Food Preservation Scientist Snubber - 08/05/21 Clinical documented as of this encounter
--- OUTSIDE RECORDS SUMMARY | 2022-09-21 04:16 | XMS_ITS | Encounter Summary ---
:1980 Author Organization [place] Address [address] [place] [address] Care Team Providers Name Role Phone Aydee Burton PUBLIC POLICY COORDINATOR PROJECTOR BOOTH OPERATOR Primary Care Provider Aydee Burton PUBLIC POLICY COORDINATOR PROJECTOR BOOTH OPERATOR Unavailable [phone] Louisa Hood PUBLIC POLICY COORDINATOR PROJECTOR BOOTH OPERATOR Unavailable [phone] Se Levy SKI PATROL Unavailable Unavailable Anny Bernabe Unavailable Unavailable Clari Ruiz [facility] Unavailable [phone] Angel Hannah MD Unavailable Lesly Celaya MD Unavailable Elizabeth Mcintyre [facility] Unavailable Mago Swift DISPLAYER MERCHANDISE Unavailable Encounter Details Date Type Department Care Team Description 09/08/2021 [facility] Only [facility] Lesly Celaya Encou nter for Surgery Clinic screening for other [facility] [address] viral diseases [address] [address] [place], [place] [phone] (Wo rk) [address] [phone] Social History Tobacco Use Types Packs/Day Years [...] How often do you attend mormonism or amish services? Never 08/05/2021 Do you [...] at Date Recorded Female 11/09/2021 7:53 PM WASTE WATER PLANT OPERATOR COVID-19 Exposure Response Date Recorded In the last month, have you been in contact with No / Unsure 08/31/2021 9:32 AM CDT someone who was confirmed or suspected to have Coronavirus / COVID-19? documented as of this encounter Plan of Treatment Upcoming Encounters Date Type Specialty Care Team Description 09/26/2022 Appointment Speech Therapy Obdulio Barrera MD [address] [facility] [address] [place] [address] Anabel Chew, STRUCTURAL STEEL WORKER [address] [address] [facility] [address] [place] [address] 09/27/2022 Therapy Visit Physical Therapy Luisana Watkins, PT [address] [place] [address] 09/29/2022 Virtual Visit Pain & Palliative Marilia Deluna, [facility] PhD [address] [place] [address] 09/30/2022 Office Visit Family Practice Aydee Burton, PUBLIC POLICY COORDINATOR PROJECTOR BOOTH OPERATOR [address] [place], [place] [address] 10/03/2022 Therapy Visit Physical Therapy Una Reardon, PT [address] [place] [phone] 10/10/2022 Hospital Encounter Surgery Lesly Celaya MD [address] [place], [place] [address] 10/10/2022 Office Visit Surgery Lesly Celaya MD [address] [place] [address] Ninoska Flowers, PA-C [address] [facility] [address] [place] [address] 10/10/2022 Surgery Surgery Lesly Celaya, EXCISION, MASSES - back, abdomen, [address] right lower [facility] [place] [address] 10/11/2022 Virtual Visit Clari Su, [facility] [address] [facility] [address] [place] [address] 10/14/2022 Appointment Speech Therapy Anabel Chew, STRUCTURAL STEEL WORKER [facility] [address] [place] [address] 10/21/2022 Office Visit Pulmonology Obdulio Barrera MD [address] [facility] [address] [place] [address] 10/25/2022 PRE VISIT ENT Charo Burton MD Previsit [address] [place] [address] 10/25/2022 Office Visit ENT Charo Burton MD [address] [place] [address] 10/25/2022 Office Visit ENT Provider, Jeannette Ent Dysphonia Customer Logistics Manager 10/28/2022 Appointment Speech Therapy Anabel Chew, STRUCTURAL STEEL WORKER [address] [address] 11/17/2022 Appointment Speech Therapy Anabel Chew, STRUCTURAL STEEL WORKER [address] [address] 12/23/2022 Office Visit Neurology Colby Yeung MD [address] [place] [address] Scheduled Procedures Name Priority Associated Diagnoses Date/Time EXCISION, MASS, TORSO Lipoma of skin and subcuta neous 10/10/2022 7:30 AM WASTE WATER PLANT OPERATOR tissue documented as of this encounter Results Asymptomatic COVID-19 Virus (Coronavirus) by PCR Nose (10/08/2021 11:32 AM WASTE WATER PLANT OPERATOR) [facility] Method Time Signature SARS CoV2 PCR Negative Negative, 10/09/2021 [facility] Testing sent to 1:16 PM WASTE WATER PLANT OPERATOR LABORATORY reference lab. Results will be returned via unsolicited result Comment: NEGATIVE: SARS-CoV-2 (COVID-19) RNA not detected, presumed negative. Specimen Anatomical Collection Method Collection Time Receive d Time (Source) Location / / Volume Laterality Swab NASAL STRUCTURE / Non-blood 10/08/2021 11:32 2020 Unknown Collection / AM WASTE WATER PLANT OPERATOR 11:48 AM WASTE WATER PLANT OPERATOR Unknown Narrative [facility] - 10/09/2021 1:[address] Testing was performed using the Aptima SARS-CoV-2 Assay on the [employer] Instrument System. Additional in formation about this [...] COVID-19. This test was validated by the [facility] Infectious Diseases Diagnostic Laboratory. This lab oratory is certified under the Clinical Laboratory Improvement Amen dments of 1987 (CLIA-88) as qualified to perform high complexity lab oratory testing. Lesly Celaya MD LAB - MICRO GENERAL ORDERABL ES Performing Organization Address City/State/ZIP Code Phon e Number [facility] [place] [address] Diag. Lab [address] [facility], Room D297 [facility] Infectious [place], [place] [phone] Diseases Diagnostic [id number], [facility] Lab (IDDL) [address] [facility], Room D297 documented in this encounter Visit Diagnoses Diagnosis Encounter for screening for other viral diseases Lipoma of skin and subcutaneous tissue Lipoma of other skin and subcutaneous ti ssue documented in this encounter Additional Health Concerns Assessment Noted Time PHQ-9 Depression Total Score: 22 06/28/2021 7:03 AM CD T documented as of this encounter Care Teams Conference Reservationist Relationship Specialty Start Date End Date Aydee Burton, PCP - General Nurse Practitioner - 05/17/21 PUBLIC POLICY COORDINATOR PROJECTOR BOOTH OPERATOR Family [address] [place], [place] [phone] Aydee Burton, Assigned PCP 04/28/21 PUBLIC POLICY COORDINATOR PROJECTOR BOOTH OPERATOR [address] [place], [place] [phone] ErwinLouisa Grisel, Assigned Neuroscience 07/11/21 PUBLIC POLICY COORDINATOR PROJECTOR BOOTH OPERATOR Provider [address] [place], [place] [phone] eS Levy, Lead Paraprofessional Education Assistant 08/05/21 05/12/22 [facility] 08/05/21 09/30/21 Worker Clari Ruiz Pharmacist Pharmacist 08/06/21 06/07/22 [facility] [address] [place], [place] [address] [place], Assigned Sleep 08/01/21 Angel Turcios, Provider [address] [place] [address] Lesly Celaya MD Assigned Surgical 09/05/[address] Provider [place], [place] [phone] Elizabeth Mcintyre CNM Assigned OBGYN 09/05/21 11/06/[address] Provider [place], [place] [phone] Mago Swift [facility] Lead Paraprofessional Education Assistant Rn First Assistant - 08/05/21 Clinical documented as of this encounter
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
--- OUTSIDE RECORDS SUMMARY | 2022-09-21 04:16 | XMS_ITS | Encounter Summary ---
:1980 Author Organization [place] Address Formerly [facility], [facility] [place] [address] Care Team Providers Name Role Phone Aydee Burton WATER JET LOOM FIXER LINE MOVER Primary Care Provider [phone] Aydee Burton WATER JET LOOM FIXER LINE MOVER Unavailable [phone] Louisa Hood WATER JET LOOM FIXER LINE MOVER Unavailable [phone] Se Levy OFFICE ENGINEER Unavailable Unavailable Anny Bernabe Unavailable Unavailable Clari Ruiz [facility] Unavailable [phone] Angel Hannah MD Unavailable Mago Swift HEAD CLEANING PORTER Unavailable Reason for Referral Consultation (Routine) - Closed Specialty Diagnoses / Procedures Referred By Contact Refer red To Contact Internal Medicine Diagnoses Localized skin mass, lump, or swelling Elizabeth Mcintyre CNM [facility] [address] [address] [place] [address] Phone: Referral ID Status Reason Start Date Expiration Date Visits Requ ested Visits Authorized [id number] Closed 08/30/2021 08/30/2022 1 1 Consultation (Routine) - Closed Specialty Diagnoses / Procedures Referred By Contact Refer red To Contact Surgery Diagnoses Localized skin mass, lump, or swelling Elizabeth Mcintyre CNM [facility] [address], [place], [place] [address] [address] [place] [address] Phone: Fax: Referral ID Status Reason Start Date Expiration Date Visits Requ ested Visits Authorized [id number] Closed 08/30/2021 08/30/2022 1 1 Diagnostic Imaging Ultrasound (Routine) - Closed Specialty Diagnoses / Procedures Referred By Contact Refer red To Contact Diagnoses Menorrhagia with irregular cycle Elizabeth Mcintyre CNM Procedures US Pelvic Complete with Transvaginal [address] [place], [place] [address] Referral ID Status Reason Start Date Expiration Date Visits Requ ested Visits Authorized [id number] Closed 08/30/2021 08/30/2022 1 1 Reason for Visit Reason Comments Consult c/o painful periods- earlier and longer, fatigue, painful intercourse Encounter Details Date Type Department Care Team Description 08/30/2021 Office Visit [facility] Elizabeth Mcintyre Menor rhagia with irregular cycle (Primary Dx); [facility] Localized skin mass, lump, or swelling [place] [address] [place], [place] [address] [address] [place], [place] [phone] [address] (Work) [phone] Social History Tobacco Use Types Packs/Day Years [...] often do you attend oriental orthodox or hindu services? 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 documented as of this encounter Last Filed Vital Signs Vital Sign Reading Time Taken Comments Blood Pressure 124/82 08/30/2021 11:05 AM CDT Pulse - - Temperature - - Respiratory Rate - - Oxygen Saturation - - Inhaled Oxygen Concentration - - Weight 90.7 kg (200 lb) 08/30/2021 11:05 AM CDT Height - - Body Mass Index 31.32 06/11/2021 10:41 AM CDT documented in this encounter Progress Notes Elizabeth Mcintyre CNM - 08/30/2021 11:00 AM CDT SUBJECTIVE: Marta Hill is a 41 year old who presents to clinic today for the following health issue(s): Patient presents with: Consult: c/o painful periods- earlier and longer, fatigue, painful intercourse HPI: Marta presents with concern that her menses have been getting much worse over the past year. Menses are heavier with clots, and seem to come earlier each month. Feels tired all of the time, but especially during her menses. Her menses is also painful. [place] has also become painful Patient's last menstrual period was 08/23/2021 (approximate). Menstrual History: menorrhagia Patient is sexually active . Using tubal ligation for contraception. Health maintenance updated: yes Last PHQ-9 score on record = PHQ-9 SCORE 06/27/2021 PHQ-9 Total Score MyChart 22 (Severe depression) PHQ-9 Total Score 22 Last GAD7 score on record = SHAMEKA-7 SCORE 06/27/2021 Total Score 16 (severe anxiety) Total Score 16 Problem list and histories reviewed & adjusted, as indicated. Additional history: as documented. Patient Active Problem List Diagnosis ??? Neck pain ??? PTSD (post-traumatic stress disorder) ??? Breast implant status ??? Bilateral occipital neuralgia ??? Hepatic steatosis ??? SHAMEKA (generalized anxiety disorder) ??? Severe episode of recurrent major depressive disorder, without psychotic features (H) Past Surgical History: Procedure Laterality Date ??? COSMETIC SURGERY not sure breast augmentation ??? ENT SURGERY teen years sinus for bloody noses ??? DOPER OPERATOR SURGERY not sure tubal ligation and ablasion ??? ORTHOPEDIC SURGERY 2020 radial head fracture 3 screws Social History Tobacco Use ??? Smoking status: Never Smoker ??? Smokeless tobacco: Never Used Substance Use Topics ??? Alcohol use: Not Currently Problem (# of Occurrences) Relation (Name,Age of Onset) Anxiety Disorder (6) Father (aletha), Sister (dirk), Mother (spencer), Daughter (keilee), Daughter(kacie), Daughter (jose manuel) Asthma (6) Father (aletha), Sister (dirk), Mother (spencer), Daughter (kacie), Son (chula), Son (kathie) Cerebrovascular Disease (2) Father (aletha), Maternal Grandmother (jh) Depression (6) Paternal Grandfather (lucy), Father (aletha), Sister (dirk), Mother (spencer), Daughter (katlin), Daughter (kacie) Diabetes (1) Paternal Grandfather (lucy) Hypertension (1) Father (aletha) Substance Abuse (3) Father (aletha), Sister (dirk), Mother (spencer) Current Outpatient Medications Medication Sig ??? acetaminophen (TYLENOL) 500 MG tablet Take 500-1,000 mg by mouth every 6 hours as needed for mild pain ??? ascorbic acid (VITAMIN C) 250 MG CHEW chewable tablet Take 750 mg by mouth daily ??? buPROPion (WELLBUTRIN XL) 300 MG 24 hr tablet Take 1 tablet (300 mg) by mouth daily ??? DULoxetine (CYMBALTA) 30 MG capsule Take 1 capsule (30 mg) by mouth daily Take with 60 mg dose for a total of 90 mg daily ??? DULoxetine (CYMBALTA) 60 MG capsule Take 1 capsule (60 mg) by mouth daily Take with 30 mg dose for a total of 90 mg daily ??? ELDERBERRY PO Take 100 mg by mouth daily ??? gabapentin (NEURONTIN) 400 MG capsule Take 1 capsule (400 mg) by mouth 4 times daily ??? ibuprofen (ADVIL/MOTRIN) 200 MG tablet Take 400-600 mg by mouth every 6 hours as needed for pain ??? lamoTRIgine (LAMICTAL) 200 MG tablet Take 1 tablet (200 mg) by mouth At Bedtime ??? QUEtiapine (SEROQUEL) 100 MG tablet Take 1 tablet (100 mg) by mouth At Bedtime ??? vitamin D3 (CHOLECALCIFEROL) 50 mcg (2000 units) tablet Take 1 tablet by mouth daily No current facility-administered medications for this visit. Allergies Allergen Reactions ??? Amoxicillin Itching ROS: CONSTITUTIONAL: NEGATIVE for fever, chills, change in weight INTEGUMENTARU/SKIN: NEGATIVE for worrisome rashes, moles or lesions POSITIVE for multiple lumps over her entire body BREAST: NEGATIVE for masses, tenderness or discharge GI: NEGATIVE for nausea, abdominal pain, heartburn, or change in bowel habits : NEGATIVE for unusual urinary or vaginal symptoms. Periods are regular. POSITIVE for painful heavy menses NEURO: NEGATIVE for weakness, dizziness or paresthesias HEME/ALLERGY/IMMUNE: NEGATIVE for bleeding problems PSYCHIATRIC: NEGATIVE for changes in mood or affect OBJECTIVE: BP 124/82 (BP Location: Left arm, Cuff Size: Adult Regular) Wt 90.7 kg (200 lb) LMP 08/23/2021 (Approximate) BMI 31.32 kg/m?? Body mass index is 31.32 kg/m??. PHYSICAL EXAM: Constitutional: Appearance: Well nourished, well developed alert, in no acute distress Chest: Respiratory Effort: Breathing unlabored. Skin: General Inspection: No rashes present, no areas of discoloration. Multiple masses of various sizes on right leg, both arms, and across back Neurologic: Mental Status: Oriented X3. Normal strength and tone, sensory exam grossly normal, mentation intact and speech normal. Psychiatric: Mentation appears normal and affect normal/bright. Pelvic Exam: Vulva: No external lesions, normal hair distribution, no adenopathy Vagina: Moist, pink, no abnormal discharge, well rugated, no lesions Cervix: smooth, no lesions, no cervical motion tenderness Uterus: Normal size, anteverted, non-tender, mobile Ovaries: No mass, non-tender, mobile Rectal exam: Deferred In-Clinic Test Results: Results for orders placed or performed in visit on 08/30/21 (from the past 24 hour(s)) CBC with Platelets and Reflex to Iron Studies Narrative The following orders were created for panel order CBC with Platelets and Reflex to Iron Studies. Procedure Abnormality Status --------- ------ CBC with Platelets and R...[[id number]] Normal Final result Extra Green Top (Lowgap...[[id number]] In process Please view results for these tests on the individual orders. CBC with Platelets and Reflex to Iron Studies Result Value Ref Range WBC Count 6.3 4.0 - 11.0 10e3/uL RBC Count 4.23 3.80 - 5.20 10e6/uL Hemoglobin 13.2 11.7 - 15.7 g/dL Hematocrit 41.2 35.0 - 47.0 % MCV 97 78 - 100 fL MCH 31.2 26.5 - 33.0 pg MCHC 32.0 31.5 - 36.5 g/dL RDW 12.8 10.0 - 15.0 % Platelet Count 302 150 - 450 10e3/uL ASSESSMENT/PLAN: ICD-10-CM 1. Menorrhagia with irregular cycle N92.1 US Pelvic Complete with Transvaginal CBC with Platelets and Reflex to Iron Studies Partial thromboplastin time INR CBC with Platelets and Reflex to Iron Studies Partial thromboplastin time INR 2. Localized skin mass, lump, or swelling R22.9 Adult General Surg Referral Internal Medicine Referral PLAN: 1. Labs and ultrasound pending. Will see patient back to discuss options after results available. 2. Consult with Dr. Osborne. Recommendation of additional labs and referral to IM and general surgeryfor possible biopsy. Elizabeth Mcintyre APRN, CNM documented in this encounter Nursing Notes Radha Azar - 08/30/2021 11:00 AM CDT Chief Complaint Patient presents with ??? Consult c/o painful periods- earlier and longer, fatigue, painful intercourse Initial BP 124/82 (BP Location: Left arm, Cuff Size: Adult Regular) Wt 90.7 kg (200 lb) LMP 08/23/2021 (Approximate) BMI 31.32 kg/m?? Estimated body mass index is 31.32 kg/m?? as calculated from the following: Height as of 06/11/21: 1.702 m (5' 7). Weight as of this encounter: 90.7 kg (200 lb). BP completed using cuff size: regular Questioned patient about current smoking habits. Pt. has never smoked. documented in this encounter Plan of Treatment Upcoming Encounters Date Type Specialty Care Team Description 09/26/2022 Appointment Speech Therapy Obdulio Barrera MD [address] [facility] [place] [address] [place] [address] Anabel Chew, CELINE [facility] [address] [facility] [place] [address] [place], [place] [address] 09/27/2022 Therapy Visit Physical Therapy Luisana Watkins, PT [address] [place] [address] 09/29/2022 Virtual Visit Pain & Palliative Marilia Deluna, [facility] PhD [address] [place], [place] [phone] 09/30/2022 Office Visit Family Practice Aydee Burtonlotte, WATER JET LOOM FIXER LINE MOVER [address] [place], [place] [phone] 10/03/2022 Therapy Visit Physical Therapy Una Reardon, PT [address] [place] [phone] 10/10/2022 Hospital Encounter Surgery Lesly Celaya MD [address] [place], [place] [phone] 10/10/2022 Office Visit Surgery Lesly Celaya MD [address] [place], [place] [phone] Ninoska Flowers PA-Ynes [address] [facility] [address] [place] [address] 10/10/2022 Surgery Surgery Lesly Celaya, EXCISION, MASSES - MD back, abdomen, [address] right lower [facility] extremity [place], [place] [phone] 10/11/2022 Virtual Visit Clari Su, [facility] [address] [facility] [address] [place], [place] [phone] 10/14/2022 Appointment Speech Therapy Anabel Chew, CLIENT PARTNER [facility] [address] [facility] [address] [facility] [address] [place], [place] [address] 10/21/2022 Office Visit Pulmonology Obdulio Barrera MD [address] [facility] [place] [address] [place], [place] [address] 10/25/2022 PRE VISIT ENT Charo Burton MD Previsit [address] [place] [address] 10/25/2022 Office Visit ENT Charo Burton MD [address] [place] [address] [phone] 10/25/2022 Office Visit ENT Provider, Jeannette Ent Dysphonia Gaming Cashier 10/28/2022 Appointment Speech Therapy Anabel Chew, CLIENT PARTNER [address] [place] [address] 11/17/2022 Appointment Speech Therapy Anabel Chew, CLIENT PARTNER [address] [place] [address] 12/23/2022 Office Visit Neurology Colby Yeung MD [address] [place] [address] Scheduled Procedures Name Priority Associated Diagnoses Date/Time EXCISION, MASS, TORSO Lipoma of skin and subcuta neous 10/10/2022 7:30 AM HEALTH PROFESSOR tissue Scheduled Referrals Name Type Priority Associated Diagnoses Order S chedule Adult General Surg Referral Routine: Next Localized skin mass, Expected: Referral available opening lump, or swelling 08/30 (Approximate), Expires: 08/30/2022 Internal Medicine Referral Routine: Next Localized skin mass, E xpected: Referral available opening lump, or swelling 08/30 (Approximate), Expires: 08/30/2022 documented as of this encounter Procedures Procedure Name Priority Date/Time Associated Comments Diagnosis CBC WITH PLATELETS AND Routine 08/30/2021 12:06 Menorrhagia wi th Results for this REFLEX TO IRON STUDIES PM CDT irregular cycle pr ocedure are in the results section. EXTRA GREEN TOP Routine 08/30/2021 12:06 Menorrhagia with Resu lts for this (LITHIUM HEPARIN) TUBE PM CDT irregular cycle pr ocedure are in the results section. CBC WITH PLATELETS AND Routine 08/30/2021 12:06 Menorrhagia wi th Results for this REFLEX TO IRON STUDIES PM CDT irregular cycle pr ocedure are in the results section. INR Routine 08/30/2021 12:06 Menorrhagia with Results for this PM CDT irregular cycle procedure ar e in the results section. PARTIAL THROMBOPLASTIN Routine 08/30/2021 12:06 Menorrhagia wi th Results for this TIME PM CDT irregular cycle procedure ar e in the results section. documented in this encounter Results (ABNORMAL) US Pelvic Complete with Transvaginal (08/31/2021 10:02 AM CDT) Anatomical Region Laterality Modality Abdomen/Pelvis Ultrasound Specimen (Source) Anatomical Location Collection Method / Collectio n Time Received Time / Laterality Volume Narrative 08/31/2021 3:21 PM CDT [facility] ULTRASOUND - PELVIC DOPER OPERATOR- Transabdominal and Transvaginal ?? Referring MD: Elizabeth [...] Latricia Saavedra, DO ?? Obstetrics and Gynecology [facility] Elizabeth Mcintyre CNM IMG US ORDERABLES Extra Green Top (Lowgap Heparin) Tube (08/30/2021 12:06 PM CDT) athologist Signature Hold Specimen JIC 08/30/2021 [facility] 1:18 PM CDT Specimen Anatomical Collection Method / Collection Time Recei edil Time (Source) Location / Volume Laterality Blood STRUCTURE OF RIGHT Venipuncture / 08/30/2021 12:06 UPPER LIMB / Unknown PM CDT 12:06 PM CDT Unknown Elizabeth Mcintyre CNM LAB - BLOOD ORDERABLES Performing Organization Address City/State/ZIP Code Phon e Number [place] [address] [place] [address] [facility] [address] [place] [address], [facility] [address] [facility], [address] CBC with Platelets and Reflex to Iron Studies (08/30/2021 12:06 PM CDT) athologist Signature WBC Count 6.3 4.0 - 11.0 08/30/2021 [facility] 10e3/uL 12:41 PM CDT RBC Count 4.23 3.80 - 08/30/2021 [facility] 5.20 12:41 PM CDT 10e6/uL Hemoglobin 13.2 11.7 - 08/30/2021 [facility] 15.7 g/dL 12:41 PM CDT Hematocrit 41.2 35.0 - 08/30/2021 [facility] 47.0 % 12:41 PM CDT MCV 97 78 - 100 08/30/2021 [facility] fL 12:41 PM CDT MCH 31.2 26.5 - 08/30/2021 [facility] 33.0 pg 12:41 PM CDT MCHC 32.0 31.5 - 08/30/2021 [facility] 36.5 g/dL 12:41 PM CDT RDW 12.8 10.0 - 08/30/2021 [facility] 15.0 % 12:41 PM CDT Platelet Count 302 150 - 450 08/30/2021 [facility] 10e3/uL 12:41 PM CDT Specimen Anatomical Collection Method / Collection Time Recei edil Time (Source) Location / Volume Laterality Blood STRUCTURE OF RIGHT Venipuncture / 08/30/2021 12:06 UPPER LIMB / Unknown PM CDT 12:06 PM CDT Unknown Elizabeth [facility] LAB - BLOOD ORDERABLES Performing Organization Address City/State/ZIP Code Phon e Number [place] [address] [facility] [address] [facility] [address] [facility], [address] [place] [address], [facility] [address] [facility] INR (08/30/2021 12:06 PM CDT) P athologist Signature INR 0.85 0.85 - 1.15 08/30/2021 [facility] 5:37 PM CDT Specimen Anatomical Collection Method / Collection Time Recei edil Time (Source) Location / Volume Laterality Blood STRUCTURE OF RIGHT Venipuncture / 08/30/2021 12:06 UPPER LIMB / Unknown PM CDT 12:03 PM CDT Unknown Elizabeth [facility] - BLOOD ORDERABLES Performing Organization Address City/[facility]/ZIP Code Phon e Number [facility] [place], [place] [phone] [place] [facility] [address] [place] [address] Lab (no room number, 1st floor of clinic) [facility] [place], [place] [phone] [facility] [phone] [address] Lab (no room number, 1st floor of clinic) Partial thromboplastin time (08/30/2021 12:06 PM CDT) P athologist Signature aPTT 29 22 - 38 08/30/2021 [facility] 5:37 PM CDT Specimen Anatomical Collection Method / Collection Time Recei edil Time (Source) Location / Volume Laterality Blood STRUCTURE OF RIGHT Venipuncture / 08/30/2021 12:06 UPPER LIMB / Unknown PM CDT 12:03 PM CDT Unknown Elizabeth [facility] - BLOOD ORDERABLES Performing Organization Address City/State/ZIP Code Phon e Number [facility] [place], [place] [phone] [place] [facility] [address] [place] [address] Lab (no room number, 1st floor of clinic) [facility] [place], [place] [phone] [facility] [phone] [address] Lab (no room number, 1st floor of clinic) documented in this encounter Visit Diagnoses Diagnosis Menorrhagia with irregular cycle - Prima ry Excessive or frequent menstruation Localized skin mass, lump, or swelling Localized superficial swelling, mass, or lump Menorrhagia with irregular cycle Excessive or frequent menstruation Lipoma of skin and subcutaneous tissue Lipoma of other skin and subcutaneous ti ssue documented in this encounter Additional Health Concerns Assessment Noted Time PHQ-9 Depression Total Score: 22 06/28/2021 7:03 AM CD T documented as of this encounter Care Teams Lining Sewer Relationship Specialty Start Date End Date yAdee Burton, PCP - General Nurse Practitioner - 05/17/21 WATER JET LOOM FIXER LINE MOVER Family [address] [place] [address] [phone] Aydee Burton, Assigned PCP 04/28/21 WATER JET LOOM FIXER LINE MOVER [address] [place] [phone] Louisa Hood, Assigned Neuroscience 07/11/21 WATER JET LOOM FIXER LINE MOVER Provider [address] [place] [phone] Se Levy, Lead Returner 08/05/21 05/12/22 [facility] 08/05/21 09/30/21 Worker Clari Ruiz Pharmacist Pharmacist 08/06/21 06/07/22 Jocelyn, [facility] [address] [place] [address] [place] Assigned Sleep 08/01/21 Angel Turcois, Provider [address] [place] [address] Mago Swift, [facility] Lead Returner Assembler [employer] - 08/05/21 Clinical documented as of this encounter
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
--- OUTSIDE RECORDS SUMMARY | 2022-09-21 04:16 | XMS_ITS | Encounter Summary ---
:1980 Author Organization [facility] Address [address] [place] [address] Care Team Providers Name Role Phone Aydee Burton PASTE UP COPY CAMERA OPERATOR ACCOUNTS ADJUSTABLE CLERK Primary Care Provider Aydee Burton PASTE UP COPY CAMERA OPERATOR ACCOUNTS ADJUSTABLE CLERK Unavailable [phone] Louisa Hood PASTE UP COPY CAMERA OPERATOR ACCOUNTS ADJUSTABLE CLERK Unavailable [phone] Se Levy PRESSER AUTOMATIC Unavailable Unavailable Anny Bernabe Unavailable Unavailable Clari Ruiz [facility] Unavailable Angel Hannah MD Unavailable Lesly Celaya MD Unavailable Elizabeth Mcintyre [facility] Unavailable Mago Swift LOCOMOTIVE FIRER Unavailable Encounter Details Date Type Department Care Team Description 09/09/2021 Documentation Only [facility] Keisha Salcedo MD [address] [place] [address] [place], [place] [phone] (Wo rk) [id number] [phone] Social History Tobacco Use Types Packs/Day Years [...] How often do you attend temple or zoroastrian services? Never 08/05/2021 Do you [...] at Date Recorded Female 11/09/2021 7:53 PM PODIATRIC ASSISTANT COVID-19 Exposure Response Date Recorded In the last month, have you been in contact with No / Unsure 09/09/2021 8:00 PM CDT someone who was confirmed or suspected to have Coronavirus / COVID-19? documented as of this encounter Procedure Notes Angel Hannah MD - 09/09/2021 11:59 PM CDTAssociated Order(s): ADULT FAMILY HOME PROGRAM MANAGER COMPREHENSIVE SLEEP Images from the original note were not included. SLEEP STUDY INTERPRETATION DIAGNOSTIC POLYSOMNOGRAPHY REPORT Patient: MARTA HAWKINS Date of : 1980 Study Date: 09/09/2021 Referring Provider: - Ordering Provider: - Indications for Polysomnography: The patient is a 41-year-old Female who is 5' 7 and weighs 200.0 lbs. Her BMI is 31.4, [place] sleepiness scale 20 and neck circumference is 35.5 cm. Relevant medical history includes depression, PTSD. A diagnostic polysomnogram was performed to evaluate for sleep apnea/ hypoxemia. Polysomnogram Data: A full night polysomnogram recorded the standard physiologic parameters including EEG, EOG, EMG, ECG, nasal and oral airflow. Respiratory parameters of chest and abdominal movementswere recorded with respiratory inductance plethysmography. Oxygen saturation was recorded by pulse oximetry. Hypopnea scoring rule used: 1B 4%. Sleep Architecture: Sleep architecture was remarkable for [...] Time in REM supine was 59.0 minutes. Respiration: Snoring was reported. Though there were some obstructive events that predominantly noted during supine sleep, there is no evidence of clinically significant obstructive sleep apnea based on the overall apnea-hypopnea index being less than 5 events per hour. ??? Events ? The polysomnogram revealed a presence [...] supine AHI was 7.6 events per hour. TheRERA index was 0.2 events per hour. The RDI was 5.0 events per hour. ??? Snoring - was reported as moderate and intermittent. ??? Respiratory rate and pattern - was notable for normal respiratory rate and pattern. ??? Sustained Sleep Associated Hypoventilation - Transcutaneous carbon dioxide monitoring was not used, however significant hypoventilation was not suggested by oximetry. ??? Sleep Associated Hypoxemia - (Greater than 5 minutes O2 sat at or below 88%) was not present. Baseline oxygen saturation was 94.4%. Lowest oxygen saturation was 83.1%. Time spent less than or equalto 88% was 0.1 minutes. Time spent less than or equal to 89% was 0.1 minutes. Movement Activity: Frequent periodic limb movements were observed; however, they were not associatedwith significant arousals. REM sleep without atonia was noted in some epochs. Clinical correlation for RBD is suggested. Periodic Limb Activity - There were 233 PLMs during the entire study. The PLM index was 36.2 movements per hour. The PLM Arousal Index was 1.6 per hour. ??? REM EMG Activity - Excessive transient muscle activity was present in some epochs. ??? Nocturnal Behavior - Abnormal sleep related behaviors were not noted during/arising out of NREM / REM sleep. ??? Bruxism - None apparent. Cardiac Summary: Normal sinus rhythm was noted with occasional sinus tachycardia. The average pulse rate was 86.7 bpm. The minimum pulse rate was 74.0 bpm while the maximum pulse rate was 111.0 bpm. Normal sinus rhythm was noted with occasional sinus tachycardia. Assessment: ??? Snoring was reported. Though there were some obstructive events that predominantly noted during supine sleep, there is no evidence of clinically significant obstructive sleep apnea based on the overall apnea-hypopnea index being less than 5 events per hour. ??? Sleep architecture was remarkable for prolonged initial sleep latency and reduced sleep efficiency. All sleep stages were observed. REM sleep was reduced. ??? Frequent periodic limb movements were observed; however, they were not associated with significant arousals. ??? REM sleep without atonia was noted in some epochs. Clinical correlation for RBD is suggested. Abnormal sleep related behaviors were not noted. ??? Normal sinus rhythm was noted with occasional sinus tachycardia. Recommendations: ??? Suggest the option of positional therapy during sleep or dental appliance through referral to Sleep Dentistry for control of obstructive events that were noted during supine sleep apnea and/or socially disruptive snoring. ??? Suggest further inquiry about dream enactment behaviors. ??? Advice regarding the risks of drowsy driving. ??? Suggest optimizing sleep schedule and avoiding sleep deprivation. ? ? Weight management (if BMI > 30). ??? Pharmacologic therapy should be used for management of restless legs syndrome only if present and clinically indicated and not based on the presence of periodic limb movements alone. Diagnostic Codes: Unspecified Sleep Disturbance G47.9 Periodic Limb Movement Disorder G47.61 09/09/2021 [facility] Sleep Study (200.0 lbs) - AHI 4.8, RDI 5.0, Supine AHI 7.6, REM AHI 4.1, Low O2 83.1%, Time Spent ?88% 0.1 minutes / Time Spent ?89% 0.1 minutes. Electronically Signed By: (Suni Hannah MD), 09/23/21 ATRIC ASSISTANT documented in this encounter Plan of Treatment Upcoming Encounters Date Type Specialty Care Team Description 09/26/2022 Appointment Speech Therapy Obdulio Barrera MD [address] [facility] [address] [place] [address] Anabel Chew, ADULT FAMILY HOME PROGRAM MANAGER [place] [address] [facility] [address] [place], [place] [phone] 09/27/2022 Therapy Visit Physical Therapy Luisana Watkins, PT [address] [place] [address] 09/29/2022 Virtual Visit Pain & Palliative Marilia Deluna Care PhD [address] [place], [place] [id number] 09/30/2022 Office Visit Family Practice Aydee Burton, PASTE UP COPY CAMERA OPERATOR ACCOUNTS ADJUSTABLE CLERK [address] [place] [address] 10/03/2022 Therapy Visit Physical Therapy Una Reardon, PT [address] [place] [phone] 10/10/2022 Hospital Encounter Surgery Lesly Celaya MD [address] [place], [place] [phone] 10/10/2022 Office Visit Surgery Lelsy Celaya MD [address] [place] [address] Ninoska Flowers PA-C [address] [place] [address] 10/10/2022 Surgery Surgery Lesly Celaya, EXCISION, MASSES - MD back, abdomen, [address] [place] [address] 10/11/2022 Virtual Visit Clari Su, [facility] [address] [id number] [place], [place] [address] 10/14/2022 Appointment Speech Therapy Anabel Chew, ADULT FAMILY HOME PROGRAM MANAGER [facility] [address] [facility] [address] [place], [place] [address] 10/21/2022 Office Visit Pulmonology Obdulio Barrera MD [address] [facility] [address] [place] [address] 10/25/2022 PRE VISIT ENT Charo Burton MD Previsit [address] [place], [place] [phone] 10/25/2022 Office Visit ENT Charo Burton MD [address] [place], [place] [phone] 10/25/2022 Office Visit ENT Provider, Jeannette Ent Dysphonia Compounder [employer] 10/28/2022 Appointment Speech Therapy Anabel Chew, ADULT FAMILY HOME PROGRAM MANAGER [address] [id number] 11/17/2022 Appointment Speech Therapy Anabel Chew, ADULT FAMILY HOME PROGRAM MANAGER [address] [id number] 12/23/2022 Office Visit Neurology Colby Yeung MD [address] [id number] Scheduled Procedures Name Priority Associated Diagnoses Date/Time EXCISION, MASS, TORSO Lipoma of skin and subcuta neous 10/10/2022 7:30 AM PODIATRIC ASSISTANT tissue documented as of this encounter Procedures Procedure Name Priority Date/Time Associated Comments Diagnosis ADULT FAMILY HOME PROGRAM MANAGER COMPREHENSIVE SEAN 09/09/2021 8:02 PM Sleep disturbance Results for this SLEEP CDT procedure are i n the results section. documented in this encounter Visit Diagnoses Not on filedocumented in this encounter Additional Health Concerns Assessment Noted Time PHQ-9 Depression Total Score: 22 06/28/2021 7:03 AM CD T documented as of this encounter Care Teams Humanities Instructor Relationship Specialty Start Date End Date Aydee Burton, PCP - General Nurse Practitioner - 05/17/21 PASTE UP COPY CAMERA OPERATOR ACCOUNTS ADJUSTABLE CLERK Family [address] [place], [place] [id number] Adyee Burton, Assigned PCP 04/28/21 PASTE UP COPY CAMERA OPERATOR ACCOUNTS ADJUSTABLE CLERK [address] [place], [place] [phone] Louisa Hood, Assigned Neuroscience 07/11/21 PASTE UP COPY CAMERA OPERATOR ACCOUNTS ADJUSTABLE CLERK Provider [address] [place] [address] Se Levy, Lead Business Services Representative 08/05/21 05/12/22 [facility] 08/05/21 09/30/21 Worker Clari Ruiz Pharmacist Pharmacist 08/06/21 06/07/22 [facility] [address] [place] [address] [place], Assigned Sleep 08/01/21 Angel Turcios, Provider [address] [place] [address] Lesly Celaya MD Assigned Surgical 09/05/[address] [place] [address] Elizabeth Mcintyre CNM Assigned OBGYN 09/05/21 11/06/[id number] [place] [address] Mago Swift, [facility] Lead Business Services Representative Event Designer - 08/05/21 Clinical documented as of this encounter
--- OUTSIDE RECORDS SUMMARY | 2022-09-21 04:16 | XMS_ITS | Encounter Summary ---
:1980 Author Organization [place] Address [address] [facility] [place] [address] Care Team Providers Name Role Phone Aydee Burton CUSTOMER RELATIONS CONSULTANT TRASH COLLECTOR SUPERVISOR Primary Care Provider [phone] Aydee Burton CUSTOMER RELATIONS CONSULTANT TRASH COLLECTOR SUPERVISOR Unavailable [phone] Louisa Hood CUSTOMER RELATIONS CONSULTANT TRASH COLLECTOR SUPERVISOR Unavailable [phone] Se Levy SEED SALES MANAGER Unavailable Unavailable Anny Bernabe Unavailable Unavailable Clari Ruiz [facility] Unavailable [phone] Angel Hannah MD Unavailable Lesly Celaya MD Unavailable Elizabeth Mcintyre CN Unavailable Mago Swift CHIROPRACTIC DOCTOR Unavailable Reason for Visit Reason Comments Sleep Problem (Routine) - Closed Specialty Diagnoses / Procedures Referred By Contact Refer red To Contact Sleep Medicine Diagnoses PSG/information sent through My Chart Sleep [facility] Procedures PSG DIAGNOSTIC [address] [facility] [address] [place] [address] Phone: Referral ID Status Reason Start Date Expiration Date Visits Requ ested Visits Authorized [id number] Closed 09/09/2021 09/09/2022 1 1 Encounter Details Date Type Department Care Team Description 09/09/[address] [facility] Sleep [facility] Sleep disturbance [place] [address] [facility] [address] [place] [address] Social History Tobacco Use Types Packs/Day Years [...] How often do you attend buddhist or buddhist services? 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/2021 7:53 PM SENIOR MANAGER MMCOE COVID-19 Exposure Response Date Recorded In the last month, have you been in contact with No / Unsure 09/09/2021 8:00 PM CDT someone who was confirmed or suspected to have Coronavirus / COVID-19? documented as of this encounter Progress Notes Kelly Fernandez - 09/09/2021 8:00 PM CDT Diagnostic PSG completed per provider order. Patient did not meet criteria for PAP therapy. documented in this encounter Plan of Treatment Upcoming Encounters Date Type Specialty Care Team Description 09/26/2022 Appointment Speech Therapy Obdulio Barrera MD [address] [facility] [address] [place], [place] [address] Anabel Chew, THERAPY AIDE [address] [place] [address] 09/27/2022 Therapy Visit Physical Therapy Luisana Watkins, PT [address] [place] [address] 09/29/2022 Virtual Visit Pain & Palliative Marilia Deluna, Care PhD [address] [place] [address] 09/30/2022 Office Visit Family Practice Aydee Burton, CUSTOMER RELATIONS CONSULTANT TRASH COLLECTOR SUPERVISOR [address] [place] [address] 10/03/2022 Therapy Visit Physical Therapy Una Reardon, PT [address] [place] [phone] 10/10/2022 Hospital Encounter Surgery Lesly Celaya MD [address] [place], [place] [address] 10/10/2022 Office Visit Surgery Lesly Celaya MD [address] [place], [place] [phone] Ninoska Flowers PA-C [address] [place], [place] [address] 10/10/2022 Surgery Surgery Lesly Celaya, EXCISION, MASSES - MD back, abdomen, [address] extremity [place], [place] [address] 10/11/2022 Virtual Visit Clari Su, [facility] [address] [place] [address] 10/14/2022 Appointment Speech Therapy Anabel Chew, THERAPY AIDE [address] [address] 10/21/2022 Office Visit Pulmonology Obdulio Barrera MD [address] [address] 10/25/2022 PRE VISIT ENT Charo Burton MD Previsit [address] [place], [place] [address] 10/25/2022 Office Visit ENT Charo Burton MD [address] [place], [place] [phone] 10/25/2022 Office Visit ENT Provider, Ent Dysphonia Corporate Auditor 10/28/2022 Appointment Speech Therapy Anabel Chew SLP [address] [address] 11/17/2022 Appointment Speech Therapy Anabel hCew SLP [address] [phone] 12/23/2022 Office Visit Neurology Colby Yeung MD [address] [place] [id number] Scheduled Procedures Name Priority Associated Diagnoses Date/Time EXCISION, MASS, TORSO Lipoma of skin and subcuta neous 10/10/2022 7:30 AM SENIOR MANAGER MMCOE tissue documented as of this encounter Procedures Procedure Name Priority Date/Time Associated Comments Diagnosis THERAPY AIDE COMPREHENSIVE SEAN 09/09/2021 8:02 PM Sleep disturbance Results for this SLEEP CDT procedure are i n the results section. documented in this encounter Results Comprehensive Sleep Study (09/09/2021 8:02 PM CDT) Analysis Performed At Patho logist Time Signature THERAPY AIDE Comprehensive [facility] Sleep Specimen (Source) Anatomical Collection Method Collection Time Re ceived Time Location / / Volume Laterality 09/09/2021 8:02 PM CDT Narrative [facility] - 09/24/2021 7:09 AM SENIOR MANAGER [facility]E Angel Hannah MD ? 09/23/2021 ??2:15 PM SLEEP STUDY INTERPRETATION DIAGNOSTIC POLYSOMNOGRAPHY REPORT Patient: MARTA HAWKINS Date of : 1980 Study Date: 09/09/2021 Referring Provider: - Ordering Provider: - Indications for Polysomnography: The pat ient is a 41-year-old Female who is 5' 7 and weighs 200.0 lbs . Her BMI is 31.4, [place] sleepiness scale 20 and neck cir cumference is 35.5 cm. Relevant medical history includes depres maria eugenia, PTSD. A diagnostic polysomnogram was performed to evaluate for sleep apnea/ hypoxemia. Polysomnogram Data: A full night polysom nogram recorded the standard physiologic parameters includin g EEG, EOG, EMG, ECG, nasal and oral airflow. Respiratory para meters of chest and abdominal movements were recorded with r espiratory inductance plethysmography. Oxygen saturation was r ecorded by pulse oximetry. Hypopnea scoring rule used: 1B 4%. Sleep Architecture: Sleep architecture w as remarkable for prolonged initial sleep latency and redu shoaib sleep efficiency. ?? All sleep stages were observed. ??REM sl eep was reduced. The total recording time of the polysomn ogram was 492.8 minutes. The total sleep time was 386.5 minutes. Sleep latency was increased at 59.9 minutes without the us e of a sleep aid. REM latency was 179.0 minutes. Arousal index was normal at 13.0 arousals per hour. Sleep efficiency was decreased at 78.4%. Wake after sleep onset was 46.5 minutes. The patient spent 9.3% of total sleep time in Stage N1, 60.0% in S tage N2, 15.4% in Stage N3, and 15.3% in REM. Time in REM supine was 59.0 minutes. Respiration: Snoring was reported. ??Tho ugh there were some obstructive events that predominantly no mike during supine sleep, there is no evidence of clinically signi ficant obstructive sleep apnea based on the overall apnea-hypopne a index being less than 5 events per hour. ? ? Events ? The polysomnogram revealed a presence of 1 obstructive, 1 central, and - mixed apne as resulting in an apnea index of 0.3 events per hour. There were 29 obstructive hypopneas and - central hypopneas resulting in an obstructive hypopnea index of 4.5 and central hypopnea index of - events per hour. The combined apnea/hypopnea index was 4.8 ev ents per hour (central apnea/hypopnea index was 0.2 events per hour). The REM AHI was 4.1 events per hour. The supine AHI was 7.6 events per hour. The RERA index was 0.2 events per hour. ??Th e RDI was 5.0 events per hour. ? ? Snoring ? was reported as moderate and intermittent. ? ? Respiratory rate and pattern ? was notable for normal respiratory rate and pattern. ? ? Sustained Sleep Associated Hypoventilation ? Transcutaneous carbon dioxide monitoring was not used, however significant hypoventilation was not suggested by oxi metry. ? ? Sleep Associated Hypoxemia ? (Greater than 5 minutes O2 sat at or below 88%) was not present. Baseline oxygen saturation was 94.4%. Lowest oxygen saturation was 83.1 %. Time spent less than or equal to 88% was 0.1 minutes. Time sp ent less than or equal to 89% was 0.1 minutes. Movement Activity: Frequent periodic medrano b movements were observed; however, they were not associa mike with significant arousals. REM sleep without atonia was n oted in some epochs. Clinical correlation for RBD is suggeste d. Periodic Limb Activity ? There were 233 PLMs during the entire study. The PLM index was 36.2 movements per hour. The PLM Arousal Index was 1.6 per hour. ? ? REM EMG Activity ? Excessive transient muscle activity was present in some epochs. ? ? Nocturnal Behavior ? Abnormal sleep related behaviors were not noted during/arising out of NREM / REM s leep. ? ? Bruxism ? None apparent. Cardiac Summary: Normal sinus rhythm was noted with occasional sinus tachycardia. The average pulse rate was 86.7 bpm. The minimum pulse rate was 74.0 bpm while the maximum pulse rate wa s 111.0 bpm. Normal sinus rhythm was noted with occasional sinus t achycardia. Assessment: ? ? Snoring was reported. ??Though there were some obstructive events that predominantly noted during s upine sleep, there is no evidence of clinically significant obstr uctive sleep apnea based on the overall apnea-hypopnea index bein g less than 5 events per hour. ? ? Sleep architecture was remarkable for prolonged initial sleep latency and reduced sleep efficiency. ?? All sleep stages were observed. ??REM sleep was reduced. ? ? Frequent periodic limb movements were observed; however, they were not associated with significant dejon usals. ? ? REM sleep without atonia was noted in some epochs. Clinical correlation for RBD is suggested. Abnorm al sleep related behaviors were not noted. ? ? Normal sinus rhythm was noted with occasional sinus tachycardia. Recommendations: ? ? Suggest the option of positional therapy during sleep or dental appliance through referral to [facility] [place] ist[facility] for control of obstructive events that were noted durin g supine sleep apnea and/or socially disruptive snoring. ? ? Suggest further inquiry about dream enactment behaviors. ? ? Advice regarding the risks of drowsy driving. ? ? Suggest optimizing sleep schedule and avoiding sleep deprivation. ? ? Weight management (if BMI > 30). ? ? Pharmacologic therapy should be used for management of restless legs syndrome only if present and clinic ally indicated and not based on the presence of periodic limb m ovements alone. Diagnostic Codes: Unspecified Sleep Disturbance G47.9 Periodic Limb Movement Disorder G47.61 ?? 09/09/2021 [facility] H[facility] dy (200.0 lbs) - AHI 4.8, RDI 5.0, Supine AHI 7.6, REM AHI 4.1, Lo w O2 83.1%, Time Spent ?88% 0.1 minutes / Time Spent ?89% 0.1 m inutes. Electronically Signed By: (Suni smith MD), 09/23/21 ?? Procedure Note Angel Hannah MD - 09/09/2021 11:59 PM CDT Images from the original note were not i ncluded. SLEEP STUDY INTERPRETATION DIAGNOSTIC POLYSOMNOGRAPHY REPORT Patient: MARTA HAWKINS Date of : 1980 Study Date: 09/09/2021 Referring Provider: - Ordering Provider: - Indications for Polysomnography: The karl ient is a 41-year-old Female who is 5' 7 and weighs 200.0 lbs. Her BMI is 31.4, [place] sleepiness scale 20 and neck circumference is 35.5 cm. Relevant medical history includes depression, PTSD. A diagnostic polysomno gram was performed to evaluate for sleep apnea/ hypoxemia. Polysomnogram Data: A full night polysom nogram recorded the standard physiologic parameters including EEG, EOG, EMG, ECG, nasal and oral airflow. Respiratory parameters of chest and abdominal movements were recorded with respiratory inductance ple thysmography. Oxygen saturation was recorded by pulse oximetry. Hypopnea scoring rule used: 1B 4%. Sleep Architecture: Sleep architecture w as remarkable for prolonged initial sleep latency and reduced sleep efficiency. All sleep stages were observed. REM sleep was reduced. The total recording time of the polysomn ogram was 492.8 minutes. The total sleep time was 386.5 minutes. Sleep latency was increased at 59.9 minutes without the use of a sleep aid. REM latency was 179.0 minutes. Arousal index was normal at 13.0 arousals per ho ur. Sleep efficiency was decreased at 78.4%. Wake after sleep onset was 46.5 minutes. The patient spent 9.3% of total sleep time in Stage N1, 60.0% in Stage N2, 15.4% in Stage N3, and 15.3% in REM. Time in REM supine was 59. 0 minutes. Respiration: Snoring was reported. Thoug h there were some obstructive events that predominantly noted during supine sleep, there is no evidence of clinically significant obstructive sleep apnea based on the overall apnea-hypopnea index being less than 5 e vents per hour. ? ? Events ? The polysomnogram revealed a presence of 1 obstructive, 1 central, and - mixed apneas resulting in an apnea index of 0.3 events per hour. There were 29 obstructive hypopneas and - central hypopneas resulting in an obstructive hypopnea ind ex of 4.5 and central hypopnea index of - events per hour. The combined apnea/hypopnea index was 4.8 events per hour (central apnea/hypopnea index was 0.2 events per hour). The REM AHI was 4.1 events per hour. The supine AHI was 7.6 events per hour. The RERA index was 0.2 events per hour. The RDI was 5.0 events per hour. ? ? Snoring - was reported as moderate and intermittent. ? ? Respiratory rate and pattern - was notable for normal respiratory rate and pattern. ? ? Sustained Sleep Associated Hypoventilation - Transcutaneous carbon dioxide monitoring was not used, however significant hypoventilation was not suggested by oximetry. ? ? Sleep Associated Hypoxemia - (Greater than 5 minutes O2 sat at or below 88%) was not present. Baseline oxygen saturation was 94.4%. Lowest oxygen saturation was 83.1%. Time spent less than or equal to 88% was 0.1 minutes. Time spent less than or equal t o 89% was 0.1 minutes. Movement Activity: Frequent periodic medrano b movements were observed; however, they were not associated with significant arousals. REM sleep without atonia was noted in some epochs. Clinical correlation for RBD is suggested. Periodic Limb Activity - There were 233 PLMs during the entire study. The PLM index was 36.2 movements per hour. The PLM Arousal Index was 1.6 per hour. ? ? REM EMG Activity - Excessive transient muscle activity was present in some epochs. ? ? Nocturnal Behavior - Abnormal sleep related behaviors were not noted during/arising out of NREM / REM sleep. ? ? Bruxism - None apparent. Cardiac Summary: Normal sinus rhythm was noted with occasional sinus tachycardia. The average pulse rate was 86.7 bpm. The minimum pulse rate was 74.0 bpm while the maximum pulse rate was 111.0 bpm. Normal sinus rhythm was noted with occasional sinus tachycardia. Assessment: ? ? Snoring was reported. Though there were some obstructive events that predominantly noted during supine sleep, there is no evidence of clinically significant obstructive sleep apnea based on the overall apnea-hypopnea index being less than 5 e vents per hour. ? ? Sleep architecture was remarkable for prolonged initial sleep latency and reduced sleep efficiency. All sleep stages were observed. REM sleep was reduced. ? ? Frequent periodic limb movements were observed; however, they were not associated with significant arousals. ? ? REM sleep without atonia was noted in some epochs. Clinical correlation for RBD is suggested. Abnormal sleep related behaviors were not noted. ? ? Normal sinus rhythm was noted with occasional sinus tachycardia. Recommendations: ? ? Suggest the option of positional therapy during sleep or dental appliance through referral to Sleep Dentistry for control of obstructive events that were noted during supine sleep apnea and/or socially disruptive snoring. ? ? Suggest further inquiry about dream enactment behaviors. ? ? Advice regarding the risks of drowsy driving. ? ? Suggest optimizing sleep schedule and avoiding sleep deprivation. ? ? Weight management (if BMI > 30). ? ? Pharmacologic therapy should be used for management of restless legs syndrome only if present and clinically indicated and not based on the presence of periodic limb movements alone. Diagnostic Codes: Unspecified Sleep Disturbance G47.9 Periodic Limb Movement Disorder G47.61 09/09/2021 [facility] dy (200.0 lbs) - AHI 4.8, RDI 5.0, Supine AHI 7.6, REM AHI 4.1, Low O2 83.1%, Time Spent ?88% 0.1 minutes / Time Spent ?89% 0.1 minutes. Electronically Signed By: (Suni smith MD), 09/23/21 Angel Hannah MD PROCEDURES Performing Organization Address City/State/ZIP Code Phon e Number [facility] documented in this encounter Visit Diagnoses Diagnosis Sleep disturbance Sleep disturbance, unspecified Lipoma of skin and subcutaneous tissue Lipoma of other skin and subcutaneous ti ssue documented in this encounter Additional Health Concerns Assessment Noted Time PHQ-9 Depression Total Score: 22 06/28/2021 7:03 AM CD T documented as of this encounter Care Teams Traffic Recorder Relationship Specialty Start Date End Date Aydee Burton, PCP - General Nurse Practitioner - 05/17/21 CUSTOMER RELATIONS CONSULTANT TRASH COLLECTOR SUPERVISOR Family [address] [place], [place] [phone] Aydee Burton, Assigned PCP 04/28/21 CUSTOMER RELATIONS CONSULTANT TRASH COLLECTOR SUPERVISOR [address] [place], [place] [phone] Louisa Hood, Assigned Neuroscience 07/11/21 CUSTOMER RELATIONS CONSULTANT TRASH COLLECTOR SUPERVISOR Provider [address] [place], [place] [phone] Se Levy, Lead Final Inspector And Tester 08/05/21 05/12/22 [facility] 08/05/21 09/30/21 Worker Clari Ruiz Pharmacist Pharmacist 08/06/21 [facility]07/[facility] [address] [place], [place] [address] [place], Assigned Sleep 08/01/21 Angel Turcios, Provider [address] [place] [address] Lesly Celaya MD Assigned Surgical 09/05/[address] Provider [place], [place] [phone] Elizabeth Mcintyre CNM Assigned OBGYN 09/05/21 11/06/[address] Provider [place], [place] [phone] Mago Swift [facility] Lead Final Inspector And Tester Medical Housekeeper - 08/05/21 Clinical documented as of this encounter
--- OUTSIDE RECORDS SUMMARY | 2022-09-21 04:17 | XMS_ITS | Encounter Summary ---
:1980 Author Organization [place] Address [address] [place] [address] Care Team Providers Name Role Phone Aydee Burton APRN, CNP Primary Care Provider [phone] Aydee Burton APRN MORNING CAREGIVER Unavailable [phone] Reason for Referral Mental Health Outpatient (Routine) - Closed Specialty Diagnoses / Procedures Referred By Contact Refer red To Contact Diagnoses Major depression in complete remission (H) Carolyn Ackerman LICSW Referral ID Status Reason Start Date Expiration Date Visits Requ ested Visits Authorized [id number] Closed 07/08/2021 07/08/2022 1 1 Encounter Details Date Type Department Care Team Description 07/08/2021 Orders Only [facility] ession in [facility] & [facility] complete remission (H) Addiction [facility] (Primary Dx) [address] [place] [phone] Social History Tobacco Use Types Packs/Day Years [...] How often do you attend mosque or episcopal services? Never 08/05/2021 Do you [...] at Date Recorded Female 11/09/2021 7:53 PM MACHINE BINDING FOLDER COVID-19 Exposure Response Date Recorded In the last month, have you been in contact with No / Unsure 07/07/2021 3:26 PM CDT someone who was confirmed or suspected to have Coronavirus / COVID-19? documented as of this encounter Plan of Treatment Upcoming Encounters Date Type Specialty Care Team Description 09/26/2022 Appointment Speech Therapy Obdulio Barrera MD [address] [facility] [address] [place], [place] [address] Anabel Chew, QUALITY ASSURANCE SUPERVISOR BODY [address] [place], [place] [address] 09/27/2022 Therapy Visit Physical Therapy Luisana Watkins, PT [address] [place] [address] 09/29/2022 Virtual Visit Pain & Palliative Marilia Deluna, [facility] PhD [address] [place] [address] 09/30/2022 Office Visit Family Practice Aydee Burton, BRIQUETTE MAKER MORNING CAREGIVER [address] [place], [place] [phone] 10/03/2022 Therapy Visit Physical Therapy David-Una Tang, PT [address] [place] [address] 10/10/2022 Hospital Encounter Surgery Lesly Celaya MD [address] [place] [address] 10/10/2022 Office Visit Surgery Lesly Celaya MD [address] [place] [address] Ninoska Flowers, PA-C [address] [place] [address] 10/10/2022 Surgery Surgery Lesly Celaya, EXCISION, MASSES - MD back, abdomen, [address] extremity [place], [place] [phone] 10/11/2022 Virtual Visit Clari Su, [facility] [address] [phone] [place], [place] [address] 10/14/2022 Appointment Speech Therapy Anabel Chew, QUALITY ASSURANCE SUPERVISOR BODY [facility] [address] [facility] [address] [place] [address] 10/21/2022 Office Visit Pulmonology Obdulio Barrera MD [address] [facility] [address] [place] [address] 10/25/2022 PRE VISIT ENT Charo Burton MD Previsit [address] [place] [address] 10/25/2022 Office Visit Charo Carter MD [address] [place] [phone] 10/25/2022 Office Visit ENT Provider, Jeannette Ent Dysphonia Structural Design Engineer 10/28/2022 Appointment Speech Therapy Anabel Chew, QUALITY ASSURANCE SUPERVISOR BODY [address] [address] 11/17/2022 Appointment Speech Therapy Anabel Chew, QUALITY ASSURANCE SUPERVISOR BODY [address] [address] 12/23/2022 Office Visit Neurology Colby Yeung MD [address] [place] [address] Scheduled Procedures Name Priority Associated Diagnoses Date/Time EXCISION, MASS, TORSO Lipoma of skin and subcuta neous 10/10/2022 7:30 AM MACHINE BINDING FOLDER tissue Scheduled Referrals Name Type Priority Associated Diagnoses Order [facility] MENTAL HEALTH REFERRAL - Referral Routine Major depression in Expected: 07/08/2021 Adult; Outpatient complete remission (H) (Approximate), Treatment; Expires: 2021 Individual/Couples/Famil y/Group Therapy/Health Psychology; [facility] ; We will contact you to schedule the appointment or please call with any questions documented as of this encounter Visit Diagnoses Diagnosis Major depression in complete remission ( H) - Primary Major depressive disorder, single episod e in full remission Lipoma of skin and subcutaneous tissue Lipoma of other skin and subcutaneous ti ssue documented in this encounter Additional Health Concerns Assessment Noted Time PHQ-9 Depression Total Score: 22 06/28/2021 7:03 AM CD T documented as of this encounter Care Teams Telesales Manager Relationship Specialty Start Date End Date Aydee Burton, PCP - General Nurse Practitioner - 05/17/21 BRIQUETTE MAKER MORNING CAREGIVER Family [address] [place] [phone] Aydee Burton, Assigned PCP 04/28/21 BRIQUETTE MAKER [facility] [address] [place], [place] [phone] documented as of this encounter
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
--- OUTSIDE RECORDS SUMMARY | 2022-09-21 04:17 | XMS_ITS | Encounter Summary ---
:1980 Author Organization [place] Address [address] [facility] [address] Care Team Providers Name Role Phone Aydee Burton APRN, CNP Primary Care Provider [phone] Aydee Burton APRN MANAGER SOCIAL SERVICES Unavailable [phone] Encounter Details Date Type Department Care Team Description 06/17/2021 Travel Social History Tobacco Use Types Packs/Day [...] How often do you attend yazdanism or presybeterian services? Never 08/05/2021 Do you [...] at Date Recorded Female 11/09/2021 7:53 PM BINDER ROLLER COVID-19 Exposure Response Date Recorded In the last month, have you been in contact with No / Unsure 06/17/2021 8:39 AM CDT someone who was confirmed or suspected to have Coronavirus / COVID-19? documented as of this encounter Plan of Treatment Upcoming Encounters Date Type Specialty Care Team Description 09/26/2022 Appointment Speech Therapy Obdulio Barrera MD [address] [facility] [address] [place], [place] [address] Anabel Chew, GRANULATOR [address] [place], [place] [address] 09/27/2022 Therapy Visit Physical Therapy Luisana Watkins, PT 2150 [place] [address] 09/29/2022 Virtual Visit Pain & Palliative Marilia Deluna, Ronald PhD [address] [place] [address] 09/30/2022 Office Visit Family Practice Aydee Burton, TUBING DRIER MANAGER SOCIAL SERVICES [address] [place], [place] [address] 10/03/2022 Therapy Visit Physical Therapy Una Reardon, PT 2[address] [place] [address] 10/10/2022 Hospital Encounter Surgery Lesly Celaya MD [address] [place], [place] [address] 10/10/2022 Office Visit Surgery Lesly Celaya MD [address] [place], [place] [address] Ninoska Flowers, FLORES-C [address] [place], [place] [id number] 10/10/2022 Surgery Surgery Lesly Celaya, EXCISION, MASSES - MD back, abdomen, [address] [place] [address] 10/11/2022 Virtual Visit Clari Su, [place] [id number] [address] [address] 10/14/2022 Appointment Speech Therapy Anabel Chew, GRANULATOR [address] [address] 10/21/2022 Office Visit Pulmonology Obdulio Barrera MD [address] [place] [address] 276 [place], [place] [address] 10/25/2022 PRE VISIT ENT Charo Burton MD Previsit [address] [place] [address]245 10/25/2022 Office Visit Charo Carter MD [address] [place] [address] [id number] 10/25/2022 Office Visit ENT Provider, Jeannette Ent Dysphonia Pantographer 10/28/2022 Appointment Speech Therapy Anabel Chew, GRANULATOR [address] [address] 11/17/2022 Appointment Speech Therapy Anabel Chew, GRANULATOR [address] [place] [address] 12/23/2022 Office Visit Neurology Colby Yeung MD [address] [id number] Scheduled Procedures Name Priority Associated Diagnoses Date/Time EXCISION, MASS, TORSO Lipoma of skin and subcuta neous 10/10/2022 7:30 AM BINDER ROLLER tissue documented as of this encounter Visit Diagnoses Not on filedocumented in this encounter Additional Health Concerns Assessment Noted Time PHQ-9 Depression Total Score: 17 06/12/2021 7:02 AM CD T documented as of this encounter Care Teams Slagger Relationship Specialty Start Date End Date Aydee Burton, PCP - General Nurse Practitioner - 05/17/21 TUBING DRIER MANAGER SOCIAL SERVICES Family [address] [place] [id number] Aydee Burton, Assigned PCP 04/28/21 TUBING DRIER [facility] [address] [place], [place] [address] documented as of this encounter
--- OUTSIDE RECORDS SUMMARY | 2022-09-21 04:17 | XMS_ITS | Encounter Summary ---
:1980 Author Organization [place] Address [address] [place] [address] Care Team Providers Name Role Phone Aydee Burton APRN BENCH WORKER APPRENTICE Primary Care Provider [phone] Aydee Burton APRN BENCH WORKER APPRENTICE Unavailable [phone] Louisa Hood ELECTROCARDIOGRAPH OPERATOR BENCH WORKER APPRENTICE Unavailable [phone] Se Levy [address] 8 TUTOR Unavailable Unavailable Anny Bernabe Unavailable Unavailable Clari Ruiz [facility] Unavailable [phone] Angel Hannah MD Unavailable Lesly Celaya MD Unavailable Elizabeth Mcintyre [facility] Unavailable Mago Swift PROJECT CONSTRUCTION MANAGER Unavailable Reason for Visit Reason Comments Medication Therapy Management Med Therapy Management (Routine) - Closed Specialty Diagnoses / Procedures Referred By Contact Refer red To Contact Pharmacist Diagnoses Hepatic steatosis PTSD (post-traumatic stress disorder) SHAMEKA (generalized anxiety disorder) Severe episode of recurrent major depressive disorder, without psychotic features (H) Other fatigue Louisa Hood APRN BENCH WORKER APPRENTICE [address] [place] [address] Referral ID Status Reason Start Date Expiration Date Visits Requ ested Visits Authorized [id number] Closed 08/03/2021 08/03/2022 1 1 Encounter Details Date Type Department Care Team Description 08/06/2021 Virtual Visit [facility] Ana Hood, ELECTROCARDIOGRAPH OPERATOR [facility] [address] [place] [address] MDD (major depressive disorder) (Primary Dx); Mental Health & Clari Ruiz, [facility] [address] [place] [address] SHAMEKA (generalized anxiety disorder); Addiction Services PTSD (post-traumatic stress disorder); [address] steat osis; Avenue Hyperlipidemia LDL goal <100 ; [address]; [place], [place] Takes dietar y supplements [address] Social History Tobacco Use Types Packs/Day [...] How often do you attend taoism or adventism services? 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/2021 7:53 PM SUPERVISOR CHASSIS ASSEMBLY COVID-19 Exposure Response Date Recorded In the last month, have you been in contact with No / Unsure 09/09/2021 8:00 PM CDT someone who was confirmed or suspected to have Coronavirus / COVID-19? documented as of this encounter Patient Instructions Patient InstructionsJoseph Clari Banks, [facility] - 08/06/2021 9:00 AM CDT Recommendations from today's MTM visit: Jorge Lozano, It was nice meeting with you last week. Below is a summary of information in regards to your symptoms and medications risks: - If your liver abnormalities are due to medications, I think the most likely culprit is acetaminophen. Your hepatic labs have improved since you decrease your use of acetaminophen, but would still be good to follow-up with a PCP or GI specialist in regards to this. - Seroquel could be contributing to daytime fatigue and increased cholesterol. It could also be the cause of your increased appetite at night. I have sent a message to Louisa Hood to get her thoughts on a trial of reducing Seroquel dose to 50 mg at bedtime. -It is possible that Cymbalta can be contributing to blurry vision, there is about a 3% incidence rate of this. I think the first step would be a trial of reducing Seroquel and then if needed your future provider could consider switching from Cymbalta to a different antidepressant. It was great to speak with you today. I value your experience and would be very thankful for your time with providing feedback on our clinic survey. You may receive a survey via email or text message in the next few days. To schedule another MTM appointment, please call the clinic directly or you may call the MTM scheduling line at [phone] or toll-free at . My Clinical Pharmacist's contact information: Please feel free to contact me with any questions or concerns you have. Clari Ruiz, PharmD, BCPP Medication Therapy Management Pharmacist [facility] documented in this encounter Progress Notes Clari Ruiz RPH - 08/06/2021 9:00 AM CDT Medication Therapy Management (MTM) Encounter ASSESSMENT: Medication Adherence/Access: No issues identified MDD, HSAMEKA, PTSD: Symptoms are suboptimally controlled and patient's most concerning symptom at this time is significant daytime fatigue. She is also on significant polypharmacy regimen. In terms of nextsteps, there are several options that could be considered, but may wish to prioritize changes that could be contributing to fatigue, nighttime awakening/eating and concern re: hepatic abnormalities/hyperlipidemia. Therefore, may wish to first attempt trial of Seroquel dose reduction/discontinuation. Future considerations could include antidepressant change (ie trial of SSRI+ Wellbutrin as patient hasnot tried this combination in the past, there is a current drug interaction by which Wellbutrin increases Cymbalta levels and Cymbalta could be contributing to blurry vision). Will follow-up with Louisa Hood to see if she would like to initiate change prior to pt's psych appt on 08/26. Hepatic Steatosis, hyperlipidemia: Pt's ALT and AST were elevated 05/17/21, but WNL 06/11/21. Bilirubinand alk phos appear to have been within normal limits. If hepatic abnormality is medication-related,acetaminophen would be the most likely culprit and pt has drastically reduced the use of this. In regards to hyperlipidemia, Seroquel could certainly be a causative agent. It does not appear, via available records in Care Everywhere, that a pre-Seroquel baseline lipid panel was obtained so difficult to draw a direct correlation, but Seroquel is known to have risk of hyperlipidemia, elevated glucose, weight gain. Could consider trial at reducing/stopping Seroquel as mentioned above. Recommend ongoingcare with PCP or GI for evaluation of hepatic function. Would recommend repeat lipid panel ~3 monthsafter stopping Seroquel. Pain: Stable - pt no longer using APAP frequently. Supplements: Stable, vitamin D level within normal limits. PLAN: Film Composer to connect with Louisa Hood about a possible Seroquel dose reduction. Follow-up: 2-4 weeks pending med changes SUBJECTIVE/OBJECTIVE: Marta Hill is a 41 year old female called for an initial visit. She was referred to me from collaborative care psychiatry - Louisa Hood APRN. Referral Reason: Pt on mulitple medications for psych and pain. ??In addition, recently diagnosed with hepatic steatosis. Reason for visit: pt wonders if medications are related to blurry vision, increased cholesterol, fatty liver. Allergies/ADRs: Reviewed in chart Past Medical History: Reviewed in chart Tobacco: She reports that she has never smoked. She has never used smokeless tobacco. Alcohol: none Medication Adherence/Access: no issues reported MDD, SHAMEKA, PTSD: Current medication: Cymbalta 90mg daily Wellbutrin XL 300mg daily Seroquel 100mg at bedtime Lamotrigine 200mg at bedtime Gabapentin 400mg QID (pt is only taking BID) Marta is a 41-year-old with psychiatric diagnoses of MDD, SHAMEKA, PTSD. She recently established care with Louisa Hood APRN via [facility] collaborative care psychiatry in June 2021. She plans to transition to a community psychiatrist at [facility] - has an appointment scheduled on . She was previously seen at [facility]. Marta reports she has been on Cymbalta for at least 1 year, lamotrigine for at least 9 months, Seroquel for roughly the past 6 months and Wellbutrin for the last 3 to 4 months. She has been on gabapentin for 1 to 2 years and reports this was initially started for pain. She endorses symptoms of daytime fatigue, low energy, low motivation, trouble concentrating, anhedonia, and worry. She reports her level of fatigue has gotten so bothersome that she does not feel she is able to drive. She does have a history of insomnia for which she is taking Seroquel. She feels Seroquel has provided some benefit for falling asleep, but has several nighttime awakenings either to usethe bathroom or to eat since initiating Seroquel (feeling more hungry since starting). She has a sleep study scheduled 09/09/[address] [facility]. She is unsure how helpful her current medications have been and is unsure what symptoms each are targeting. She feels that each one led to perhaps some benefit when first initiated, but overall she hasn't been feeling much better. Finally, she endorses some blurry vision over the last couple months, has seen an eye doctor and is thinks her prescription is getting worse. Past medication trials: - has had some past trials, but patient is unable to recall specific details. First started medications in . - Zoloft- worked the best, but not fully effective. Added Abilify but led to impulsive behaviors andemotional blunting - Prozac, felt it worsened depression - Celexa or Lexapro, unsure details Hasn't tried Effexor, Remeron, hasn't tried Wellbutrin + SSRI Hepatic Steatosis, hyperlipidemia: Pt reports she got an ultrasound and was told she has fatty liver; diagnosis originally came from [facility] in March/April 2021. She is not sure what the plan is in regards to monitoring or the impact of this diagnosis. She also was found to have elevated cholesterol. Wondering if any medications are contributing to fatty liver or elevated cholesterol. Lab Results Component Value Date AST 20 06/11/2021 AST 47 05/17/2021 Lab Results Component Value Date ALT 35 06/11/2021 ALT 136 05/17/2021 No results found for: BILICONJ Lab Results Component Value Date BILITOTAL 0.4 06/11/2021 BILITOTAL 0.5 05/17/2021 Lab Results Component Value Date ALBUMIN 4.0 06/11/2021 ALBUMIN 3.6 05/17/2021 Lab Results Component Value Date PROTTOTAL 7.5 06/11/2021 PROTTOTAL 6.9 05/17/2021 Lab Results Component Value Date ALKPHOS 91 06/11/2021 ALKPHOS 112 05/17/2021 Recent Labs Lab Test 06/11/21 1150 05/17/21 0803 CHOL 214* 251* HDL 53 65 LDL 131* 158* TRIG 149 141 Pain: Current medications: APAP 500-1000mg 1x/daily PRN - maybe takes once every 4 days. Ibuprofen takes 400-600mg 1-2x daily most days. Marta reports she broke her elbow in Dec 2020 which led to ongoing pain. She was taking max dosesof APAP/ibuprofen scheduled for about 5 months. She was told she has fatty liver in and cristianoe cut down on her use of these medications. She now she takes ibuprofen most days, will take APAP only if really needs it - about once every 4 days. Supplements: Currently taking: Elderberry 100mg daily for general health, vitamin C daily, vitamin D 2000 units daily. No issues reports. Started elderberry about 3 weeks ago. Vitamin D Deficiency Screening Results: Lab Results Component Value Date VITDT 32 06/11/2021 VITDT 17 (L) 05/17/2021 I spent 60 minutes with this patient today. A copy of the visit note was provided to the patient's referring provider. The patient was sent via [employer] a summary of these recommendations. Clari Ruiz, PharmD, BCPP Medication Therapy Management Pharmacist [facility] Telemedicine Visit Details Type of service: Telephone visit Start Time: 9:00 AM End Time: 10:00 AM Originating Location (patient location): Home Distant Location (provider location): [facility] Medication Therapy Recommendations No medication therapy recommendations to display documented in this encounter Plan of Treatment Upcoming Encounters Date Type Specialty Care Team Description 09/26/2022 Appointment Speech Therapy Obdulio Barrera MD [address] [facility] 276 [place], [place] [address] Anabel Chew, SALES RECEPTIONIST [address] [place] [address] 09/27/2022 Therapy Visit Physical Therapy Luisana Watkins, PT [address] [place] [address] 09/29/2022 Virtual Visit Pain & Palliative Marilia Deluna, Care PhD [address] [place] [address] 09/30/2022 Office Visit Family Practice Aydee Burton, ELECTROCARDIOGRAPH OPERATOR BENCH WORKER APPRENTICE [address] [place], [place] [address] 10/03/2022 Therapy Visit Physical Therapy David-Una Tang, PT [address] [place] [phone] 10/10/2022 Hospital Encounter Surgery Lesly Celaya MD [address] [place] [address] 10/10/2022 Office Visit Surgery Lesly Celaya MD [address] [place] [address] Ninoska Flowers, PA-C [address] [place] [address] 10/10/2022 Surgery Surgery Lesly Celaya, EXCISION, MASSES - back, abdomen, [address] [place] [address] 10/11/2022 Virtual Visit Clari Su, [facility] [address] [place] [id number] [place], [place] [address] 10/14/2022 Appointment Speech Therapy Anabel Chew, SALES RECEPTIONIST [facility] [address] [facility] [address] [place] [address] 10/21/2022 Office Visit Pulmonology Obdulio Barrera MD [address] [facility] 276 [place] [address] 10/25/2022 PRE VISIT ENT Charo Burton MD Previsit [address] [place] [address] 10/25/2022 Office Visit ENT Charo Burton MD [address] [place], [place] [address] 10/25/2022 Office Visit ENT Provider, Jeannette Ent Dysphonia Insurance Clerk 10/28/2022 Appointment Speech Therapy Anabel Chew, SALES RECEPTIONIST [address] [address] 11/17/2022 Appointment Speech Therapy Anabel Chew, SALES RECEPTIONIST [address] [address] 12/23/2022 Office Visit Neurology Colby Yeung MD [address] [place] [address] Scheduled Procedures Name Priority Associated Diagnoses Date/Time EXCISION, MASS, TORSO Lipoma of skin and subcuta neous 10/10/2022 7:30 AM SUPERVISOR CHASSIS ASSEMBLY tissue documented as of this encounter Visit Diagnoses Diagnosis MDD (major depressive disorder) - Primar y Major depressive disorder, single episod e, unspecified SHAMEKA (generalized anxiety disorder) Generalized anxiety disorder PTSD (post-traumatic stress disorder) Posttraumatic stress disorder Hepatic steatosis Other chronic nonalcoholic liver disease Hyperlipidemia LDL goal <100 Other and unspecified hyperlipidemia Pain Generalized pain Takes dietary supplements Lipoma of skin and subcutaneous tissue Lipoma of other skin and subcutaneous ti ssue documented in this encounter Additional Health Concerns Assessment Noted Time PHQ-9 Depression Total Score: 22 06/28/2021 7:03 AM CD T documented as of this encounter Care Teams Copy Preparer Relationship Specialty Start Date End Date Aydee Burton, PCP - General Nurse Practitioner - 05/17/21 ELECTROCARDIOGRAPH OPERATOR BENCH WORKER APPRENTICE Family [address] [place] [phone] Aydee Burton, Assigned PCP 04/28/21 ELECTROCARDIOGRAPH OPERATOR [facility] [address] [place] [address] [id number] Louisa Hood, Assigned Neuroscience 07/11/21 ELECTROCARDIOGRAPH OPERATOR BENCH WORKER APPRENTICE Provider [address] [place], [place] [address] Se Levy, Lead Occupational Therapy Technician 08/05/21 [facility]/12[facility]22 [facility]21 09/30/21 Worker Clari Ruiz Pharmacist Pharmacist 08/06/21 06/07/22 [facility] [address] [facility] [address] [place], [place] [address] [place], Assigned Sleep 08/01/21 Angel Turcios, Provider [address] [place], [place] [phone] Lesly Celaya MD Assigned Surgical 09/05/[address] Provider [place], [place] [address] Elizabeth Mcintyre CNM Assigned OBGYN 09/05/21 11/06/[id number] Provider [place], [place] [phone] Mago Swift PROJECT CONSTRUCTION MANAGER Lead Occupational Therapy Technician Auditor Tax - 08/05/21 Clinical documented as of this encounter
--- OUTSIDE RECORDS SUMMARY | 2022-09-21 04:17 | XMS_ITS | Encounter Summary ---
:1980 Author Organization [place] Address [address] [place] [address] Care Team Providers Name Role Phone Aydee Burton APRN, CNP Primary Care Provider [phone] Aydee Burton APRN GAS PUMP ATTENDANT Unavailable [phone] Encounter Details Date Type Department Care Team Description 07/01/2021 Travel Social History Tobacco Use Types Packs/Day [...] How often do you attend mosque or scientologist services? Never 08/05/2021 Do you [...] at Date Recorded Female 11/09/2021 7:53 PM TYPING TEACHER COVID-19 Exposure Response Date Recorded In the last month, have you been in contact with No / Unsure 07/01/2021 7:56 AM CDT someone who was confirmed or suspected to have Coronavirus / COVID-19? documented as of this encounter Plan of Treatment Upcoming Encounters Date Type Specialty Care Team Description 09/26/2022 Appointment Speech Therapy Obdulio Barrera MD [address] [facility] 276 [place], [place] [address] Anabel Chew, WWE WRESTLER [address] [place], [place] [address] 09/27/2022 Therapy Visit Physical Therapy Luisana Watkins, PT [address] [place] [address] 09/29/2022 Virtual Visit Pain & Palliative Marilia Deluna, Ronald PhD [address] [place] [address] 09/30/2022 Office Visit Family Practice Aydee Burton, FORM TAMPING MACHINE OPERATOR GAS PUMP ATTENDANT [address] [place], [place] [address] 10/03/2022 Therapy Visit Physical Therapy Una Reardon, PT [address] [place] [phone] 10/10/2022 Hospital Encounter Surgery Lesly Celaya MD [address] [place], [place] [address] 10/10/2022 Office Visit Surgery Lesly Celaya MD [address] [place], [place] [address] Ninoska Flowers, FLORES-C [address] [place], [place] [phone] 10/10/2022 Surgery Surgery Lesly Celaya, EXCISION, MASSES - MD back, abdomen, [address] [place] [address] 10/11/2022 Virtual Visit Clari Su, [place] [address] [address] [address] 10/14/2022 Appointment Speech Therapy Anabel Chew, WWE WRESTLER [address] [address] 10/21/2022 Office Visit Pulmonology Obdulio Barrera MD [address] [place] [address] 276 [place], [place] [address] 10/25/2022 PRE VISIT ENT Charo Burton MD Previsit [address] [place] [address] 10/25/2022 Office Visit Charo Carter MD [address] [place] [phone] 10/25/2022 Office Visit ENT Provider, Jeannette Ent Dysphonia Boat Loader Helper 10/28/2022 Appointment Speech Therapy Anabel Chew, WWE WRESTLER [address] [address] 11/17/2022 Appointment Speech Therapy Anabel Chew, WWE WRESTLER [address] [place] [address] 12/23/2022 Office Visit Neurology Colby Yeung MD [address] [id number] Scheduled Procedures Name Priority Associated Diagnoses Date/Time EXCISION, MASS, TORSO Lipoma of skin and subcuta neous 10/10/2022 7:30 AM TYPING TEACHER tissue documented as of this encounter Visit Diagnoses Not on filedocumented in this encounter Additional Health Concerns Assessment Noted Time PHQ-9 Depression Total Score: 22 06/28/2021 7:03 AM CD T documented as of this encounter Care Teams Jumbo Operator Relationship Specialty Start Date End Date Aydee Burton, PCP - General Nurse Practitioner - 05/17/21 FORM TAMPING MACHINE OPERATOR GAS PUMP ATTENDANT Family [address] [place] [id number] Aydee Burton, Assigned PCP 04/28/21 FORM TAMPING MACHINE OPERATOR [facility] [address] [place], [place] [address] documented as of this encounter
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
--- OUTSIDE RECORDS SUMMARY | 2022-09-21 04:17 | XMS_ITS | Encounter Summary ---
:1980 Author Organization [place] Address [address] [place] [address] Care Team Providers Name Role Phone Aydee Burton APRN, CNP Primary Care Provider [phone] Aydee Burton APRN EMAIL MANAGER Unavailable Encounter Details Date Type Department Care Team Description 07/07/2021 Travel Social History Tobacco Use Types Packs/Day [...] How often do you attend samaritan or confucianist services? Never 08/05/2021 Do you [...] at Date Recorded Female 11/09/2021 7:53 PM IRON BENDER COVID-19 Exposure Response Date Recorded In the last month, have you been in contact with No / Unsure 07/07/2021 3:26 PM CDT someone who was confirmed or suspected to have Coronavirus / COVID-19? documented as of this encounter Plan of Treatment Upcoming Encounters Date Type Specialty Care Team Description 09/26/2022 Appointment Speech Therapy Obdulio Barrera MD [address] [facility] [address] [place], [place] [address] Anabel Chew, TECH ED TEACHER [address] [place], [place] [phone] 09/27/2022 Therapy Visit Physical Therapy Luisana Watkins, PT [address] [place] [address] 09/29/2022 Virtual Visit Pain & Palliative Marilia Deluna, Ronald PhD [address] [place] [address] 09/30/2022 Office Visit Family Practice Aydee Burton, MECHANICAL DRAWING TEACHER EMAIL MANAGER [address] [place], [place] [address] 10/03/2022 Therapy Visit Physical Therapy Una Reardon, PT [address] [place] [phone] 10/10/2022 Hospital Encounter Surgery Lesly Celaya MD [address] [place], [place] [address] 10/10/2022 Office Visit Surgery Lesly Celaya MD [address] [place], [place] [address] Ninoska Flowers, FLORES-C [address] [place], [place] [phone] 10/10/2022 Surgery Surgery Lesly Celaya, EXCISION, MASSES - MD back, abdomen, [address] [place] [address] 10/11/2022 Virtual Visit Clari Su, [place] [id number] [address] 6[address] 10/14/2022 Appointment Speech Therapy Anabel Chew, TECH ED TEACHER [address] [address]32[address] 10/21/2022 Office Visit Pulmonology Obdulio Barrera MD [address] [place] [address] 276 [place], [place] [address] 10/25/2022 PRE VISIT ENT Charo Burton MD Previsit [address] [place] [phone] 10/25/2022 Office Visit Charo Carter MD [address] [place] [phone] 10/25/2022 Office Visit ENT Provider, Jeannette Ent Dysphonia Artist Color Separation 10/28/2022 Appointment Speech Therapy Anabel Chew, TECH ED TEACHER [address] [address] 11/17/2022 Appointment Speech Therapy Anabel Chew, TECH ED TEACHER [address] [place] [address] 12/23/2022 Office Visit Neurology Colby Yeung MD [address] [id number] Scheduled Procedures Name Priority Associated Diagnoses Date/Time EXCISION, MASS, TORSO Lipoma of skin and subcuta neous 10/10/2022 7:30 AM IRON BENDER tissue documented as of this encounter Visit Diagnoses Not on filedocumented in this encounter Additional Health Concerns Assessment Noted Time PHQ-9 Depression Total Score: 22 06/28/2021 7:03 AM CD T documented as of this encounter Care Teams Women'S Lacrosse Coach Relationship Specialty Start Date End Date Aydee Burton, PCP - General Nurse Practitioner - 05/17/21 MECHANICAL DRAWING TEACHER EMAIL MANAGER Family [address] [place] [id number] Aydee Burton, Assigned PCP 04/28/21 MECHANICAL DRAWING TEACHER [facility] [address] [place], [place] [phone] documented as of this encounter
--- OUTSIDE RECORDS SUMMARY | 2022-09-21 04:17 | XMS_ITS | Encounter Summary ---
:1980 Author Organization [place] Address [address] [place] [address] Care Team Providers Name Role Phone Aydee Burton APRN, CNP Primary Care Provider [phone] Aydee Burton APRN DIVORCE ATTORNEY Unavailable [phone] Encounter Details Date Type Department Care Team Description 06/24/2021 Travel Social History Tobacco Use Types Packs/Day [...] How often do you attend moravian or christianity services? Never 08/05/2021 Do you [...] at Date Recorded Female 11/09/2021 7:53 PM CORPORATE LEGAL ASSISTANT COVID-19 Exposure Response Date Recorded In the last month, have you been in contact with No / Unsure 06/24/2021 8:08 AM CDT someone who was confirmed or suspected to have Coronavirus / COVID-19? documented as of this encounter Plan of Treatment Upcoming Encounters Date Type Specialty Care Team Description 09/26/2022 Appointment Speech Therapy Obdulio Barrera MD 420 [facility] [address] [place], [place] [address] Anabel Chew, MANAGER PSYCHIATRY [address] [place], [place] [address] 09/27/2022 Therapy Visit Physical Therapy Luisana Watkins, PT 2[address] [place] [address] 09/29/2022 Virtual Visit Pain & Palliative Marilia Deluna, Ronald PhD [address] [place] [address] 09/30/2022 Office Visit Family Practice Aydee Burton, ARTISTS' MODEL DIVORCE ATTORNEY [address] [place], [place] [address] 10/03/2022 Therapy Visit Physical Therapy Una Reardon, PT [address] [place] [phone] 10/10/2022 Hospital Encounter Surgery Lesly Celaya MD [address] [place], [place] [address] 10/10/2022 Office Visit Surgery Lesly Celaya MD [address] [place], [place] [address] Ninoska Flowers, FLORES-C [address] [place], [place] [phone] 10/10/2022 Surgery Surgery Lesly Celaya, EXCISION, MASSES - MD back, abdomen, [address] [place] [address] 10/11/2022 Virtual Visit Clari Su, [place] [id number] [address] [address] 10/14/2022 Appointment Speech Therapy Anabel Chew, MANAGER PSYCHIATRY [address] [address] 10/21/2022 Office Visit Pulmonology Obdulio Barrera MD [address] [place] [address] 276 [place], [place] [address] 10/25/2022 PRE VISIT ENT Charo Burton MD Previsit [address] [place] [address] 10/25/2022 Office Visit Charo Carter MD [address] [place] [address] [phone] 10/25/2022 Office Visit ENT Provider, Jeannette Ent Dysphonia [facility] Cabler 10/28/2022 Appointment Speech Therapy Anabel Chew, MANAGER PSYCHIATRY [address] [address] 11/17/2022 Appointment Speech Therapy Anabel Chew, MANAGER PSYCHIATRY [address] [place] [address] 12/23/2022 Office Visit Neurology Colby Yeung MD [address] [place] [id number] Scheduled Procedures Name Priority Associated Diagnoses Date/Time EXCISION, MASS, TORSO Lipoma of skin and subcuta neous 10/10/2022 7:30 AM CORPORATE LEGAL ASSISTANT tissue documented as of this encounter Visit Diagnoses Not on filedocumented in this encounter Additional Health Concerns Assessment Noted Time PHQ-9 Depression Total Score: 17 06/12/2021 7:02 AM CD T documented as of this encounter Care Teams Public Works Laborer Relationship Specialty Start Date End Date Aydee Burton, PCP - General Nurse Practitioner - 05/17/21 ARTISTS' MODEL DIVORCE ATTORNEY Family [address] [place] [id number] Aydee Burton, Assigned PCP 04/28/21 ARTISTS' MODEL [facility] [address] [place], [place] [address] documented as of this encounter
--- OUTSIDE RECORDS SUMMARY | 2022-09-21 04:17 | XMS_ITS | Encounter Summary ---
:1980 Author Organization [place] Address [address] [facility] [address] Care Team Providers Name Role Phone Aydee Burton APRN [facility] Primary Care Provider [phone] Aydee Burton APRN [facility] Unavailable [phone] Reason for Visit Rehab Therapy Physical Therapy (Routine) - Closed Specialty Diagnoses / Procedures Referred By Contact Refer red To Contact Diagnoses Neck pain Aydee Burton APRN [place] [id number] [address] [phone] Referral ID Status Reason Start Date Expiration Date Visits Requ ested Visits Authorized [id number] Closed 05/21/2021 05/21/2022 1 1 Encounter Details Date Type Department Care Team Description 07/01/[address] [facility] Margarito Garcia PT Neck pain Rehabilitation Services [address] [place] [address] [address] [place] [address] [place] [address] [phone] Social History Tobacco Use Types Packs/Day Years [...] at Date Recorded Female 11/09/2021 7:53 PM RECONDITIONING ASSOCIATE COVID-19 Exposure Response Date Recorded In the last month, have you been in contact with No / Unsure 07/01/2021 7:56 AM CDT someone who was confirmed or suspected to have Coronavirus / COVID-19? 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 Adverse reaction to treatment or activity: None OBJECTIVE Changes in objective findings: Pt remains tender to palpation bilateral upper trapezius. Pt needs verbal cuing not to use upper traps with scaption and rows. ASSESSMENT Marta continues to require intervention to meet STG and LTG's: PT Patient's symptoms are resolving. Response to therapy has shown an improvement in pain level Progress made towards STG/LTG? Yes, PLAN Current treatment program is being advanced to more complex exercises. SUPERVISOR WHEEL SHOP/ATC plan: N/A Please refer to the daily flowsheet for treatment today, total treatment time and time spent performing 1:1 timed codes. documented in this encounter Plan of Treatment Upcoming Encounters Date Type Specialty Care Team Description 09/26/2022 Appointment Speech Therapy Obdulio Barrera MD 420 [facility] 276 [place], [place] [address] Anabel Chew, SILVERWARE BUFFER [address] [place], [place] [address] 09/27/2022 Therapy Visit Physical Therapy Luisana Watkins, PT [address] [place] [address] 09/29/2022 Virtual Visit Pain & Palliative Marilia Deluna, [facility] PhD [address] [place], [place] [address] 09/30/2022 Office Visit Family Practice Aydee Burton, TIMBER FRAMER HELPER [facility] [address] [place] [phone] 10/03/2022 Therapy Visit Physical Therapy Una Reardon, PT [address] [place] [phone] 10/10/2022 Hospital Encounter Surgery Lesly Celaya MD [address] [place], [place] [phone] 10/10/2022 Office Visit Surgery Lesly Celaya MD [address] [place], [place] [phone] Ninoska Flowers PA-C [address] [place], [place] [phone] 10/10/2022 Surgery Surgery Lesly Celaya, EXCISION, MASSES - MD back, abdomen, [address] extremity [place], [place] [phone] 10/11/2022 Virtual Visit Pharm Clari Stoll, [address] [address] 10/14/2022 Appointment Speech Therapy Anabel Chew, SILVERWARE BUFFER [address] [address] 10/21/2022 Office Visit Pulmonology Obdulio Barrera MD 420 [facility] 276 [place], [place] [address] 10/25/2022 PRE VISIT ENT Charo Burton MD Previsit [address] [place], [place] [address] 10/25/2022 Office Visit Charo Carter MD 9 [place], [place] [address] 10/25/2022 Office Visit ENT Provider, Ent Dysphonia Director Of Occupational Health 10/28/2022 Appointment Speech Therapy Anabel Chew, SILVERWARE BUFFER [address] 330815 11/17/2022 Appointment Speech Therapy Anabel Chew, SILVERWARE BUFFER [facility] 516 [facility] 396 [place], [place] [address] 12/23/2022 Office Visit Neurology Colby Yeung MD [address] [place] [place], [place] [address] Scheduled Procedures Name Priority Associated Diagnoses Date/Time EXCISION, MASS, TORSO Lipoma of skin and subcuta neous 10/10/2022 7:30 AM RECONDITIONING ASSOCIATE tissue documented as of this encounter Procedures Procedure Name Priority Date/Time Associated Diagnosis Comme nts [place] MANUAL THERAPY, EA 15 Routine 07/01/2021 8:47 AM CDT Neck p ain MIN [place] THERAPEUTIC Routine 07/01/2021 8:47 AM CDT Neck pain EXERCISES. EA 15 MIN [place] ULTRASOUND THERAPY, Routine 07/01/2021 8:47 AM CDT Neck naveen n EA 15 MIN documented in this encounter Visit Diagnoses Diagnosis Neck pain Cervicalgia Lipoma of skin and subcutaneous tissue Lipoma of other skin and subcutaneous ti ssue documented in this encounter Additional Health Concerns Assessment Noted Time PHQ-9 Depression Total Score: 22 06/28/2021 7:03 AM CD T documented as of this encounter Care Teams Renal Dialysis Rn Relationship Specialty Start Date End Date Aydee Burton, PCP - General Nurse Practitioner - 05/17/21 TIMBER FRAMER HELPER CTRS [facility] [address] [place] [id number] Aydee Burton, Assigned PCP 04/28/21 TIMBER FRAMER HELPER [facility] [address] [place] [phone] documented as of this encounter
--- OUTSIDE RECORDS SUMMARY | 2022-09-21 04:17 | XMS_ITS | Encounter Summary ---
:1980 Author Organization [place] Address [facility] [place] [address] Care Team Providers Name Role Phone Aydee Burton CAFETERIA COOK FINANCIAL RISK MANAGER Primary Care Provider [phone] Aydee Burton CAFETERIA COOK FINANCIAL RISK MANAGER Unavailable [phone] Louisa Hood CAFETERIA COOK FINANCIAL RISK MANAGER Unavailable [phone] Se Levy SENIOR HR GENERALIST Unavailable Unavailable Anny Bernabe Unavailable Unavailable Clari Ruiz [facility] Unavailable [phone] Angel Hannah MD Unavailable Lesly Celaya MD Unavailable Elizabeth Mcintyre [facility] Unavailable Tawana Patel MA Unavailable Unavailable Mago Swift CORPORATE COORDINATOR Unavailable Reason for Visit Rehab Therapy Physical Therapy (Routine) - Closed Specialty Diagnoses / Procedures Referred By Contact Refer red To Contact Diagnoses Neck pain Aydee Burton APRN [address] [phone] Referral ID Status Reason Start Date Expiration Date Visits Requ ested Visits Authorized [id number] Closed 05/21/2021 05/21/2022 1 1 Encounter Details Date Type Department Care Team Description 07/07/2021 Therapy Visit [facility] Margarito Garcia PT Neck pain Rehabilitation Services [address] [place] [address] [place] [address] [place] [address] [phone] Social History Tobacco Use Types Packs/Day Years [...] er 08/05/2021 How often do you attend quaker or restorationism services? Never 08/05/2021 Do you belong to any clubs or organizations such as quaker N o 08/05/2021 groups, unions, fraternal or [...] at Date Recorded Female 11/09/2021 7:53 PM GROUNDSKEEPER PORTER COVID-19 Exposure Response Date Recorded In the last month, have you been in contact with No / Unsure 10/12/2021 10:55 AM GROUNDSKEEPER PORTER someone who was confirmed or suspected to have Coronavirus / COVID-19? 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 Adverse reaction to treatment or activity: None ?? OBJECTIVE Changes in objective findings: Pt remains tender to palpation bilateral upper trapezius. Pt needs verbal cuing not to use upper traps with scaption and rows. HPI Physical Exam Objective: System Physical Exam General ROS Assessment/Plan: ASSESSMENT/PLAN Updated problem list and treatment plan: Diagnosis 1: cervical pain Pain - hot/cold therapy, US, manual therapy, self management, education and home program Decreased ROM/flexibility - manual therapy, therapeutic exercise, therapeutic activity and home program Decreased strength - therapeutic exercise, therapeutic activities and home program Progress toward STG/LTGs have been made: Yes, Assessment of Progress: The patient's condition is improving. Self Management Plans: Patient has been instructed in a home treatment program. I have re-evaluated this patient and find that the nature, scope, duration and intensity of the therapy is appropriate for the medical condition of the patient. Marta continues to require the following intervention to meet STG and LT's: PT Recommendations: Pt has not returned for treatment since 07-07-21. Pt discharged at this time. Please refer to the daily flowsheet for treatment today, total treatment time and time spent performing 1:1 timed codes. NDSKEEPER PORTER documented in this encounter Plan of Treatment Upcoming Encounters Date Type Specialty Care Team Description 09/26/2022 Appointment Speech Therapy Obdulio Barrera MD 420 [facility] 276 [place] [address] Anabel Chew, SOUND TECHNICIAN SUPERVISOR [place] [phone] [facility] [address] [place] [address] 09/27/2022 Therapy Visit Physical Therapy Luisana Watkins, PT [address] [place] [address] 09/29/2022 Virtual Visit Pain & Palliative Marilia Deluna, [facility] PhD [address] [place], [place] [address] 09/30/2022 Office Visit Family Practice Aydee Burton, CAFETERIA COOK FINANCIAL RISK MANAGER [address] [place], [place] [phone] 10/03/2022 Therapy Visit Physical Therapy Una Reardon, PT [address] [place] [address] 10/10/2022 Hospital Encounter Surgery Lesly Celaya MD [address] [place] [address] 10/10/2022 Office Visit Surgery Lesly Celaya MD [address] [place] [address] Ninoska Flowers, FLORES-Ynes [address] [place] [address] 10/10/2022 Surgery Surgery Lesly Celaya, EXCISION, MASSES - MD back, abdomen, [address] [place] [address] 10/11/2022 Virtual Visit Clari Su, [facility] [address] [place] [phone] [place] [address] 10/14/2022 Appointment Speech Therapy Anabel Chew, SOUND TECHNICIAN SUPERVISOR [facility] 516 [facility] 396 [place] [address] 10/21/2022 Office Visit Pulmonology Obdulio Barrera MD 420 [facility] 276 [place], [place] [address] 10/25/2022 PRE VISIT ENT Charo Burton MD Previsit [address] [place], [place] [address] 10/25/2022 Office Visit ENT Charo Burton MD [address] [place] [address] 10/25/2022 Office Visit ENT Provider, Jeannette Ent Dysphonia Personal Lines Sales Rep 10/28/2022 Appointment Speech Therapy Anabel Chew, SOUND TECHNICIAN SUPERVISOR [address] [place] [address] 11/17/2022 Appointment Speech Therapy Anabel Chew, SOUND TECHNICIAN SUPERVISOR [address] [place] [address] 12/23/2022 Office Visit Neurology Colby Yeung MD [address] [address] Scheduled Procedures Name Priority Associated Diagnoses Date/Time EXCISION, MASS, TORSO Lipoma of skin and subcuta neous 10/10/2022 7:30 AM GROUNDSKEEPER PORTER tissue documented as of this encounter Procedures Procedure Name Priority Date/Time Associated Diagnosis Comme nts [place] MANUAL THERAPY, EA 15 Routine 07/07/2021 4:43 PM CDT Neck p ain MIN [place] THERAPEUTIC Routine 07/07/2021 4:43 PM CDT Neck pain EXERCISES. EA 15 MIN [place] ULTRASOUND THERAPY, Routine 07/07/2021 4:43 PM CDT Neck naveen n EA 15 MIN documented in this encounter Visit Diagnoses Diagnosis Neck pain Cervicalgia Lipoma of skin and subcutaneous tissue Lipoma of other skin and subcutaneous ti ssue documented in this encounter Additional Health Concerns Assessment Noted Time PHQ-9 Depression Total Score: 06/28/2021 7:03 AM CD T documented as of this encounter Care Teams Distance Education Director Relationship Specialty Start Date End Date Aydee Burton, PCP - General Nurse Practitioner - 05/17/21 CAFETERIA COOK FINANCIAL RISK MANAGER Family [address] [place], [place] [phone] Aydee Burton, Assigned PCP 04/28/21 CAFETERIA COOK FINANCIAL RISK MANAGER [address] [place] [address] Louisa Hood, Assigned Neuroscience 07/11/21 CAFETERIA COOK FINANCIAL RISK MANAGER Provider [address] [place], [place] [phone] Se Levy, Lead Reconditioner 08/05/21 05/12/22 [facility] 08/05/21 09/30/21 Worker Clari Ruiz Pharmacist Pharmacist 08/06/21 06/07/22 [facility] [address] [facility] [address] [place], [place] [phone] [place], Assigned Sleep 08/01/21 Angel Turcios Provider [address] [place] [place] [address] Lesly Celaya MD Assigned Surgical 09/05/[address] [place] [address] Elizabeth Mcintyre CNM Assigned OBGYN 09/05/21 11/06/21 [address] [facility] Provider [place], [place] [phone] Tawana Patel MA [facility] 09/30/21 Worker Mago Swift CORPORATE COORDINATOR Lead Reconditioner Supervisor Customer Services - 08/05/21 Clinical documented as of this encounter
--- OUTSIDE RECORDS SUMMARY | 2022-09-21 04:17 | XMS_ITS | Encounter Summary ---
:1980 Author Organization [facility] Address [address] [place] [address] Care Team Providers Name Role Phone Aydee Burton APRN EMBROIDERY CUTTER Primary Care Provider Aydee Burton APRN EMBROIDERY CUTTER Unavailable [phone] Louisa Hood APRN EMBROIDERY CUTTER Unavailable [phone] Angel Hannah MD Unavailable Reason for Visit Consultation (Routine) - Closed Specialty Diagnoses / Procedures Referred By Contact Refer red To Contact Sleep Medicine Diagnoses Gasping for breath Aydee Burton, Sleep [facility] BROACHING MACHINE SET UP OPERATOR EMBROIDERY CUTTER [address] [place] [phone] Fax: Referral ID Status Reason Start Date Expiration Date Visits Requ ested Visits Authorized [id number] Closed 06/13/2021 06/13/2022 1 1 Encounter Details Date Type Department Care Team Description 07/28/2021 Virtual Visit [facility] Aydee Burton Ch, APRN EMBROIDERY CUTTER [address] [place] [address] Sleep disturbance (Primary Dx); Sleep Center Angel Hannah MD [address] [place] [address] Gasping for breath [address] [phone] Social History Tobacco Use Types Packs/Day Years [...] How often do you attend sabianism or presybeterian services? Never 08/05/2021 Do you [...] at Date Recorded Female 11/09/2021 7:53 PM FRAMER COVID-19 Exposure Response Date Recorded In the last month, have you been in contact with No / Unsure 07/07/2021 3:26 PM CDT someone who was confirmed or suspected to have Coronavirus / COVID-19? documented as of this encounter Patient Instructions Patient InstructionsAngel Hannah MD - 07/28/2021 1:00 PM CDT Images from the original note were not included. MY TREATMENT INFORMATION FOR SLEEP APNEA- Marta Hawkins DOCTOR : Angel Hannah MD Am I having a sleep study at a sleep center? --->Due to insurance clearance delays, you will be contacted within 2-4 weeks to schedule Am I having a home sleep study? --->Watch the video for the device you are using: -line supply/drop off device- https://www.Guardant Healthube.com/watch?v=yGGFBdELGhk -Disposable device sent out require phone/computer application- https://www.iiMonde.com/watch?v=BCce_vbiwxE Frequently asked questions: 1. What is Obstructive Sleep Apnea (LEONORA)? LEONORA is the most common type of sleep apnea. Apnea means, without breath. Apnea is most often caused by narrowing or collapse of the upper airway as muscles relax during sleep. Almost everyone has occasional apneas. Most people with sleep apnea have had brief interruptions at night frequently for many years. The severity of sleep apnea is related to how frequent and severe the events are. 2. What are the consequences of LEONORA? Symptoms include: feeling sleepy during the day, snoring loudly, gasping or stopping of breathing, trouble sleeping, and occasionally morning headaches or heartburnat night. Sleepiness can be serious and even increase the risk of falling asleep while driving. Other health consequences may include development of high blood pressure and other cardiovascular diseasein persons who are susceptible. Untreated LEONORA can contribute to heart disease, stroke and diabetes. 3. What are the treatment options? In most situations, sleep apnea is a lifelong disease that must be managed with daily therapy. Medications are not effective for sleep apnea and surgery is generally not considered until other therapies have been tried. Your treatment is your choice . Continuous Positive Airway (CPAP) works right away and is the therapy that is effective in nearly everyone. An oral device to hold your jaw forward is usually the next most reliable option. Other options include postioning devices (to keep you off your back), weight loss, and surgery including a tongue pacing device.There is more detail about some of these options below. 4. Are my sleep studies covered by insurance? Although we will request verification of coverage, we advise you also check in advance of the study to ensure there is coverage. Important tips for those choosing CPAP and similar devices Know your equipment: CPAP is continuous positive airway pressure that prevents obstructive sleep apnea by keeping the throat from collapsing while you are sleeping. In most cases, the device is ???smart?? and can slowly self-adjusts if your throat collapses and keeps a record every day of how well you are treated-this inf ormation is available to you and your care team. BPAP is bilevel positive airway pressure that keeps your throat open and also assists each breath with a pressure boost to maintain adequate breathing. Special kinds of BPAP are used in patients who have inadequate breathing from lung or heart disease. In most cases, the device is ???smart?? and can slowly self-adjusts to assist breathing. Like CPAP, the device keeps a record of how well you are treated. Your mask is your connection to the device. You get to choose what feels most comfortable and the staff will help to make sure if fits. Here: are some examples of the different masks that are available: Saavedra points to remember on your journey with sleep apnea: 1. Sleep study. PAP devices often need to be adjusted during a sleep study to show that they are effective and adjusted right. 2. Good tips to remember: Try wearing just the mask during a quiet time during the day so your body adapts to wearing it. A humidifier is recommended for comfort in most cases to prevent drying of yournose and throat. Allergy medication from your provider may help you if you are having nasal congestion. 3. Getting settled-in. It takes more than one night for most of us to get used to wearing a mask. Try wearing just the mask during a quiet time during the day so your body adapts to wearing it. A humidifier is recommended for comfort in most cases. Our team will work with you carefully on the first day and will be in contact within 4 days and again at 2 and 4 weeks for advice and remote device adjustments. Your therapy is evaluated by the device each day. 4. Use it every night. The more you are able to sleep naturally for 7-8 hours, the more likely you will have good sleep and to prevent health risks or symptoms from sleep apnea. Even if you use it 4 hours it helps. Occasionally all of us are unable to use a medical therapy, in sleep apnea, it is not dangerous to miss one night. 5. Communicate. Call our skilled team on the number provided on the first day if your visit for problems that make it difficult to wear the device. Over 2 out of 3 patients can learn to wear the devicelong-term with help from our team. Remember to call our team or your sleep providers if you are unable to wear the device as we may have other solutions for those who cannot adapt to mask CPAP therapy.It is recommended that you sleep your sleep provider within the first 3 months and yearly after thatif you are not having problems. 6. Use it for your health. We encourage use of CPAP masks during daytime quiet periods to allow yourface and brain to adapt to the sensation of CPAP so that it will be a more natural sensation to awaken to at night or during naps. This can be very useful during the first few weeks or months of adapting to CPAP though it does not help medically to wear CPAP during wakefulness and should not be used as a strategy just to meet guidelines. 7. Take care of your equipment. Make sure you clean your mask and tubing using directions every day and that your filter and mask are replaced as recommended or if they are not working. BESIDES CPAP, WHAT OTHER THERAPIES ARE THERE? Positioning Device Positioning devices are generally used when sleep apnea is mild and only occurs on your back.This example shows a pillow that straps around the waist. It may be appropriate for those whose sleep study shows milder sleep apnea that occurs primarily when lying flat on one's back. Preliminary studies have shown benefit but effectiveness at home may need to be verified by a home sleep test. These devicesare generally not covered by medical insurance. Examples of devices that maintain sleeping on the back to prevent snoring and mild sleep apnea. Belt type body positioner http://Layer.Culturalite/ Electronic reminder http://nightshifttherapy.com/ http://www.Secustream Technologiespod.com.au/ Oral Appliance What is oral appliance therapy? An oral appliance device fits on your teeth at night like a retainer used after having braces. The device is made by a specialized dentist and requires several visits over 1-2 months before a manufactured device is made to fit your teeth and is adjusted to prevent your sleep apnea. Once an oral deviceis working properly, snoring should be improved. A home sleep test may be recommended at that time if to determine whether the sleep apnea is adequately treated. Some things to remember: -Oral devices are often, but not always, covered by your medical insurance. Be sure to check with your insurance provider. -If you are referred for oral therapy, you will be given a list of specialized dentists to consider or you may choose to visit the Web site of the [place] [employer] -Oral devices are less likely to work if you have severe sleep apnea or are extremely overweight. More detailed information An oral appliance is a small acrylic device that fits over the upper and lower teeth (similar to a retainer or a mouth guard). This device slightly moves jaw forward, which moves the base of the tongueforward, opens the airway, improves breathing for effective treat snoring and obstructive sleep apnea in perhaps 7 out of 10 people . The best working devices are custom-made by a dental device mixer diamond powder after a mold is made of the teeth 1, 2, 3. When is an oral appliance indicated? Oral appliance therapy is recommended as a first-line treatment for patients with primary snoring, mild sleep apnea, and for patients with moderate sleep apnea who prefer appliance therapy to use of CPAP4, 5. Severity of sleep apnea is determined by sleep testing and is based on the number of respiratory events per hour of sleep. How successful is oral appliance therapy? The success rate of oral appliance therapy in patients with mild sleep apnea is 75-80% while in patients with moderate sleep apnea it is 50-70%. The chance of success in patients with severe sleep apnea is 40-50%. The research also shows that oral appliances have a beneficial effect on the cardiovascular health of LEONORA patients at the same magnitude as CPAP therapy7. Oral appliances should be a second-line treatment in cases of severe sleep apnea, but if not completely successful then a combination therapy utilizing CPAP plus oral appliance therapy may be effective. Oral appliances tend to be effective in a broad range of patients although studies show that the patients who have the highest success are females, younger patients, those with milder disease, and less severe obesity. 3, 6. Finding a dentist that practices dental sleep medicine Specific training is available through the [place] [employer] for dentists interested in working in the field of sleep. To find a dentist who is educated in the field of sleep and the use of oral appliances, near you, visit the Web site of the [place] [employer]. References 1. Jessica et al. Objectively measured vs self-reported compliance during oral appliance therapyfor sleep-disordered breathing. Chest 2013; 144(5): 9725-2674. 2. Elvi et al. Objective measurement of compliance during oral appliance therapy for sleep-disordered breathing. Thorax 2013; 68(1): 91-96. 3. Bailey et al. Mandibular advancement devices in 620 men and women with LEONORA and snoring: tolerability and predictors of treatment success. Chest 2004; 125: 5117-4356. 4. Martín et al. Oral appliances for snoring and LEONORA: a review. Sleep 2006; 29: 244-262. 5. Jocelyne et al. Oral appliance treatment for LEONORA: an update. J Clin Sleep Med 2014; 10(2): 215-227. 6. Rakesh et al. Predictors of OSAH treatment outcome. J [place] Res 2007; 86: 2018-4332. Weight Loss: Weight loss is a long-term strategy that may improve sleep apnea in some patients. Weight management is a personal decision and the decision should be based on your interest and the potential benefits. If you are interested in exploring weight loss strategies, the following discussion covers the impact on weight loss on sleep apnea and the approaches that may be successful. Being overweight does not necessarily mean you will have health consequences. Those who have BMI over 35 or over 27 with existing medical conditions carries greater risk. Weight loss decreases severity of sleep apnea in most people with obesity. For those with mild obesity who have developed snoring with weight gain, even 15-30 pound weight loss can improve and occasionally eliminate sleep apnea. Structured and life-long dietary and health habits are necessary to lose weight and keep healthier weight levels. Though there may be significant health benefits from weight loss, long-term weight loss is very difficult to achieve- studies show success with dietary management in less than 10% of people. In addition, substantial weight loss may require years of dietary control and may be difficult if patients havesevere obesity. In these cases, surgical management may be considered. Finally, older individuals who have tolerated obesity without health complications may be less likely to benefit from weight loss strategies. Your BMI is There is no height [...] is considered obese. More than two-thirds of [place] adults are considered overweight or obese. Being [...] through your health insurance provider, employer, local [facility], or [employer] [employer]. Surgery: Surgery for obstructive sleep apnea is considered generally only when other therapies fail to work. Surgery may be discussed with you if you are having a difficult time tolerating CPAP and or when there is an abnormal structure that requires surgical correction. Nose and throat surgeries often enlargethe airway to prevent collapse. Most of these surgeries create pain for 1-2 weeks and up to half of the most common surgeries are not effective throughout life. You should carefully discuss the benefits and drawbacks to surgery with your sleep provider and surgeon to determine if it is the best solution for you. More information Surgery for LEONORA is directed at areas that are responsible for narrowing or complete obstruction of the airway during sleep. There are a wide range of procedures available to enlarge and/or stabilize the airway to prevent blockage of breathing in the three major areas where it can occur: the palate, tongue, and nasal regions. Successful surgical treatment depends on the accurate identification of the factors responsible for obstructive sleep apnea in each person. A personalized approach is required because there is no single treatment that works well for everyone. Because of anatomic variation, consultation with an examination by a sleep surgeon is a critical first step in determining what surgical options are best for each patient. In some cases, examination during sedation may be recommended in order to guide the selection of procedures. Patients will be counseled about risks and benefits as well as the typical recovery course after surgery. Surgery is typically not a cure for a person???s LEONORA. However, surgery will often significantly improve one???s LEONORA severity (termed ???success rate?? ). Even in the absence of a cure, surgery will decrease the cardiovascular risk associated with OSA7; improve overall quality of life8 (sleepiness, functionality, sleep quality, etc). Palate Procedures: Patients with LEONORA often have narrowing of their airway in the region of their tonsils and uvula. Thegoals of palate procedures are to widen the airway in this region as well as to help the tissues resist collapse. Modern palate procedure techniques focus on tissue conservation and soft tissue rearrangement, rather than tissue removal. Often the uvula is preserved in this procedure. Residual sleep apnea is common in patient after pharyngoplasty with an average reduction in sleep apnea events of 33%2. Tongue Procedures: ExamWhile patients are awake, the muscles that surround the throat are active and keep this region open for breathing. These muscles relax during sleep, allowing the tongue and other structures to collapse and block breathing. There are several different tongue procedures available. Selection of a tongue base procedure depends on characteristics seen on physical exam. Generally, procedures are aimed at removing bulky tissues in this area or preventing the back of the tongue from falling back during sleep. Success rates for tongue surgery range from 50-62%3. Hypoglossal Nerve Stimulation: Hypoglossal nerve stimulation has recently received approval from the [place] Food and Drug Administration for the treatment of obstructive sleep apnea. This is based on research showing that thesystem was safe and effective in treating sleep apnea6. Results showed that the median AHI score decreased 68%, from 29.3 to 9.0. This therapy uses an implant system that senses breathing patterns and delivers mild stimulation to airway muscles, which keeps the airway open during sleep. The system consists of three fully implanted components: a small generator (similar in size to a pacemaker), a breathing sensor, and a stimulation lead. Using a small handheld remote, a patient turns the therapy on before bed and off upon awakening. Candidates for this device must be greater than 22 years of age, have moderate to severe LEONORA (AHI between 20-65), BMI less than 32, have tried CPAP/oral appliance without success, and have appropriate upper airway anatomy (determined by a sleep endoscopy performed by Dr. Kinney). Hypoglossal Nerve Stimulation Pathway: The sleep surgeon???s office will work with the patient through the insurance prior-authorization process (including communications and appeals). Nasal Procedures: Nasal obstruction can interfere with nasal breathing during the day and night. Studies have shown that relief of nasal obstruction can improve the ability of some patients to tolerate positive airway pressure therapy for obstructive sleep apnea1. Treatment options include medications such as nasal saline, topical corticosteroid and antihistamine sprays, and oral medications such as antihistamines or decongestants. Non-surgical treatments can include external nasal dilators for selected patients. If these are not successful by themselves, surgery can improve the nasal airway either alone or in combination with these other options. Combination Procedures: Combination of surgical procedures and other treatments may be recommended, particularly if patientshave more than one area of narrowing or persistent positional disease. The success rate of combination surgery ranges from 66-80%2,3. References 1. Lorene Quick. The Role of the Nose in Snoring and Obstructive Sleep Apnoea: An Update. Eur Arch Otorhinolaryngol. 2011; 268: 1365-73. 2. Jeb SM; Chela JA; Phoenix JR; Azra JF; Estephania MB; Mercedes SG; Santos BENITEZ. Surgical modifications of the upper airway for obstructive sleep apnea in adults: a systematic review and meta-analysis. SLEEP 2010;33(10):8530-9360. Kevin Cuenca. Hypopharyngeal surgery in obstructive sleep apnea: an evidence-based medicine review. Arch Otolaryngol Head Neck Surg. 2005;132(2):206-13. 3. Chris YH1, Megan Y, Rory ROSSANA. The efficacy of anatomically based multilevel surgery for obstructive sleep apnea. Otolaryngol Head Neck Surg. 2002;129(4):327-35. 4. Kevin Cuenca, Karla Kim. Hypopharyngeal Surgery in Obstructive Sleep Apnea: An Evidence-Based Medicine Review. Arch Otolaryngol Head Neck Surg. 2005;132(2):206-13. 5. José Luis PJ et al. Upper-Airway Stimulation for Obstructive Sleep Apnea. N Engl J Med. 2014 Nov 21;370(2):139-49. 6. Ryan Y et al. Increased Incidence of Cardiovascular Disease in Middle-aged Men with Obstructive Sleep Apnea. Am J Respir Crit Care Med; 2002 166: 159-165 7. Rehman EM et al. Studying Life Effects and Effectiveness of Palatopharyngoplasty (SLEEP) study: Subjective Outcomes of Isolated Uvulopalatopharyngoplasty. Otolaryngol Head Neck Surg. 2011; 144: 623-631. Drive Safe... Drive Alive Sleep health profoundly affects your health, mood, and your safety. Thirty three percent of the population (one in three of us) is not getting enough sleep and many have a sleep disorder. Not getting enough sleep or having an untreated / undertreated sleep condition may make us sleepy without even knowing it. In fact, our driving could be dramatically impaired due to our sleep health. As your provider, here are some things I would like you to know about driving: Here are some warning signs for impairment and dangerous drowsy driving: -Having been awake more than 16 hours -Looking tired -Eyelid drooping -Head nodding (it could be too late at this point) -Driving for more than 30 minutes Some things you could do to make the driving safer if you are experiencing some drowsiness: -Stop driving and rest -Call for transportation -Make sure your sleep disorder is adequately treated Some things that have been shown NOT to work when experiencing drowsiness while driving: -Turning on the radio -Opening windows -Eating any ???distracting?? / ???entertaining?? foods (e.g., sunflower seeds, candy, or any other) -Talking on the phone Your decision may not only impact your life, but also the life of others. Please, remember to drive safe for yourself and all of us. Per our discussion, I have provided you with a letter to your employer requesting accommodations to allow you to have a set work start time at 10 AM as opposed to having a variable start time between 6-[address] your sleep will not be jeopardized. We recommended following regular sleep schedule and aim at obtaining at least 7.5 -8 hours per night and avoid sleep deprivation. We also recommend you to minimize exposure to bright lights a couple hours before bed, avoid mind stimulating activities before bed , avoid using electronics in bed and avoid daytime naps. Recommended exposure to bright light using bright light box of 10,000 Lux intensity which you can purchase through online resources including CAPNIA, soon after awakening for 30 to 60 minutes. Anxiety/depression/PTSD: Recommend continue follow-up with psychiatrist for optimizing the management of these conditions There excessive daytime sleepiness could also be due to some of the medications you are on which have a high sedative potential including Lamictal and gabapentin. We recommend you to follow-up with your psychiatrist for adjustments of the dosing of the medication. Please avoid driving, operating any heavy machinery or other hazardous situations while drowsy or sleepy. Plan is to communicate results of sleep study in 1 week. documented in this encounter Progress Notes Angel Hannah MD - 07/28/2021 1:00 PM CDT Marta Hawkins is a 41 yr old who is being evaluated via a billable video visit. ?? How would you like to obtain your AVS? MyChart If the video visit is dropped, the invitation should be resent by: Text to cell phone:[phone] Will anyone else be joining your video visit? No If patient encounters technical issues they should call [phone] :[id number]} Video-Visit Details ?? Type of service:?? Video Visit Video start: 07/28/2021 01:15 pm Video Stop: 07/28/2021 02:00 pm Originating Location (pt. Location):??Home ?? Distant Location (provider location): [facility] ?? Platform used for Video Visit: [facility] Sleep Consultation Note Date on this visit: 07/28/2021 Marta Hawkins is sent by Aydee Burton for a sleep consultation regarding evaluation for possible sleep apnea Primary Physician: Aydee Burton Chief complaint: sleepy during day, gasping for air Marta Hawkins 41 year old with PMH of depression, PTSD, who presents to sleep clinic for virtual visit today to obtain evaluation for possible sleep apnea. She has not had a previous sleep study. Sleep Disordered Breathing Marta reports snoring, snort arousals, choking (once in a while), gasping for air, witnessed apneas, dry mouth, morning headaches, non-refreshing sleep, daytime sleepiness/fatigue. Sleep Schedule/Sleep Complaints//Daytime Functioning Marta goes to bed at 10-11 PM and wakes up at 630-730AM. He has to set several alarms to wake up in morning. Kids/boyfriend try to wake her up. If there is no need to be at work/nothing scheduled, she sleeps until afternoon sometimes. It usually takes <5 minutes to fall asleep. She wakes up 4 times throughout the night. Night time awakenings occurs to use bathroom. After awakening, She is able to fall back asleep right away. Reports non-refreshing sleep, daytime sleepiness/fatigue. She reports sleepiness when inactive. Patient reports drowsiness while driving and some close calls, but fortunately has not encountered accidents. Marta naps occasionally 3 days a week for 15 minutes, feels little better but still unrefreshed after naps. SLEEP SCALES: Patient's Rawlings Sleepiness score 20/24 Insomnia severity index:13 Restless Legs symptoms Marta does not complain of restlessness feelings in the legs. Sleep Behaviors She denies cataplexy. Reports hallucinations-hearing voices, seeing dark shadows, as she is falling asleep and once in a while during day while working. Rare episode of sleep paralysis. She denies any night time behaviors - sleep walking, sleep talking She reports sleep eating some times but she is awake. She also reports sometimes eating at night andnot being aware affect. She does not complain acting out dreams. 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 Has been working more hours for past 5 months. She quit her second job 2.5 months ago, which was from 6-10 pm, worked only for 1 month. She has a boyfriend. She lives with children (split custody with her exhusband) ages 9,10, 13 and 14and two other children 17 and 19. She drinks diet pop , about 1 bottle/day. Last caffeine intake is not within 6 hours of bed time. She does not drink alcohol. Patient is a never smoker. Patient does not use drugs. Does not use medical marijuana. Allergies: Allergies Allergen Reactions ??? Amoxicillin Itching [...] D3 (CHOLECALCIFEROL) 50 mcg (2000 units) tablet Problem List: Patient Active Problem List Diagnosis Date Noted ??? Breast implant status 06/15/2021 Priority: Medium [...] teen years sinus for bloody noses ??? 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 Parent/sibling w/ CABG, MS or angioplasty before 65F 55M? No Social [...] Gatherings with Friends and Family: ??? Attends Alevism Services: ??? Active Member of Clubs or Organizations: ??? Attends Club or Organization Meetings: ??? Marital Status: Intimate Partner Violence: ??? Fear of Current or Ex-Partner: ??? Emotionally Abused: ??? Physically Abused: ??? Sexually Abused: Family History: Family history pertinent to sleep disorders: none Family History Problem Relation Age of Onset [...] Son ??? Asthma Son Review of Systems: General Symptoms: Yes Skin Symptoms: Yes HENT Symptoms: Yes EYE SYMPTOMS: Yes HEART SYMPTOMS: Yes LUNG SYMPTOMS: Yes INTESTINAL SYMPTOMS: Yes URINARY SYMPTOMS: Yes GYNECOLOGIC SYMPTOMS: Yes BREAST SYMPTOMS: No SKELETAL SYMPTOMS: Yes BLOOD SYMPTOMS: Yes NERVOUS SYSTEM SYMPTOMS: Yes MENTAL HEALTH SYMPTOMS: Yes Ear pain: Yes Ear discharge: No Hearing loss: No Tinnitus: Yes Nosebleeds: No Congestion: No Sinus pain: No Trouble swallowing: No Voice hoarseness: No Mouth sores: Yes Sore throat: No Tooth pain: No Gum tenderness: No Bleeding gums: No Change in taste: No Change in sense of smell: No Dry mouth: Yes Hearing aid used: No Neck lump: No Fever: No Loss of appetite: Yes Weight loss: No Weight gain: No Fatigue: Yes Night sweats: No Chills: No Increased stress: No Excessive hunger: No Excessive thirst: Yes Feeling hot or cold when others believe the temperature is normal: Yes Loss of height: No Post-operative complications: No Surgical site pain: Yes Hallucinations: Yes Change in or Loss of Energy: Yes Hyperactivity: No Confusion: Yes Changes in hair: No Changes in moles/ harvey: No Itching: Yes Rashes: No Changes in nails: No Acne: Yes Hair in places you don't want it: No Change in facial hair: No Warts: No Non-healing sores: No Scarring: No Flaking of skin: No Color changes of hands/feet in cold : No Sun sensitivity: No Skin thickening: No Eye pain: No Vision loss: Yes Dry eyes: No Watery eyes: No Eye bulging: No Double vision: No Flashing of lights: No Spots: Yes Floaters: No Redness: No Crossed eyes: No Tunnel Vision: No Yellowing of eyes: No Eye irritation: No Chest pain or pressure: No Fast or irregular heartbeat: No Pain in legs with walking: No Trouble breathing while lying down: No Fingers or toes appear blue: No High blood pressure: No Low blood pressure: No Fainting: No Murmurs: No Pacemaker: No Varicose veins: Yes Wake up at night with shortness of breath: Yes Light-headedness: Yes Exercise intolerance: No Cough: Yes Sputum or phlegm: No Coughing up blood: No Difficulty breating or shortness of breath: No Snoring: No Wheezing: No Difficulty breathing on exertion: Yes Nighttime Cough: Yes Difficulty breathing when lying flat: No Heart burn or indigestion: Yes Nausea: Yes Vomiting: No Abdominal pain: Yes Bloating: Yes Constipation: No Diarrhea: No Blood in stool: No Black stools: No Rectal or Anal pain: No Fecal incontinence: No Yellowing of skin or eyes: No Vomit with blood: No Change in stools: No Trouble holding urine or incontinence: Yes Pain or burning: No Trouble starting or stopping: No Increased frequency of urination: Yes Blood in urine: No Decreased frequency of urination: No Frequent nighttime urination: Yes Flank pain: No Difficulty emptying bladder: No Bleeding or spotting between periods: No Heavy or painful periods: Yes Irregular periods: Yes Vaginal discharge: No Hot flashes: Yes Vaginal dryness: No Genital ulcers: No Reduced libido: No Painful intercourse: Yes Difficulty with sexual arousal: No Post-menopausal bleeding: No Back pain: No Muscle aches: Yes Neck pain: Yes Swollen joints: No Joint pain: Yes Bone pain: Yes Muscle cramps: Yes Muscle weakness: Yes Joint stiffness: Yes Bone fracture: Yes Edema or swelling: No Anemia: No Swollen glands: No Easy bleeding or bruising: Yes Trouble with coordination: No Dizziness or trouble with balance: Yes Fainting or black-out spells: No Memory loss: Yes Headache: Yes Seizures: No Speech problems: No Tingling: Yes Tremor: No Weakness: Yes Difficulty walking: No Paralysis: No Numbness: No Nervous or Anxious: Yes Depression: Yes Trouble sleeping: No Trouble thinking or concentrating: Yes Mood changes: Yes Panic attacks: No Physical Examination: Vitals: There were no vitals taken for this visit. BMI= There is no height or weight on file to calculate BMI. Rawlings Total Score 07/28/2021 Total score - Rawlings 20 General: No apparent distress, appropriately groomed Head: Normocephalic, atraumatic Chest: No cough, no audible wheezing, able to talk in full sentences Skin: no rash Psych: coherent speech, normal rate and volume, able to articulate logical thoughts, able to abstract reason, no tangential thoughts, no hallucinations or delusions. Her affect is normal Neuro: Mental status: Alert and Oriented X 3 Speech: normal OTHER TESTS/LABS: I have reviewed the labs and made my comment in the assessment and plan. Last Comprehensive Metabolic Panel: Sodium Date Value [...] 47 (H) 0 - 45 U/L Final Ref Range & Units 06/12/21 2 mo ago Vitamin D, Total (25-Hydroxy) 20 - 75 ug/L 32 17Low CM Impression/Plan: Nonrestorative sleep, fatigue and excessive daytime sleepiness-likely due to untreated sleep apnea/ insufficient sleep time/medications(some of which have sedative potential including Lamictal, gabapentin) Snoring, observed apneas, non restorative sleep, fatigue, EDS. Possible Obstructive sleep apnea STOP BANG score is 3/8 Patient likely has sleep apnea based on clinical history and body habitus Due to low probability based on the STOP-BANG score recommended obtaining in-lab sleep study(TCM will not be included since her recently checked serum carbon dioxide level was less than 27 mmol/L) to evaluate for sleep apnea. The study will be marked as urgent because of the degree of sleepiness and the concerns about drowsy driving that she reports Polysomnography reviewed. Consequences of untreated obstructive sleep apnea reviewed. Information provided regarding treatment options for LEONORA. Delayed sleep phase, shift work, suspect insufficient sleep: Patient's history is suggestive of delayed sleep phase, suspect insufficient sleep as one of the likely contributing factors for the symptoms of nonrestorative sleep, fatigue and EDS. I asked the patient if she would like me to write a letter to her employer, requesting accommodations to allow her to have a set work start time at 10 AM as opposed to having a variable start time between 6-10 AM and she was agreeable with the plan. Letter to her employer requesting the accommodation has been generated in [facility]. Recommended to follow regular sleep schedule and aim at obtaining at least 7.5 - 8 hours per night and avoid sleep deprivation. She was instructed to minimize exposure to bright lights a couple hours before bed, avoid mind stimulating activities before bed, avoid using electronics in bed and avoid daytime naps. Recommended exposure to bright light using bright light box of 10,000 Lux intensity, soon after awakening for 30 to 60 minutes. Anxiety/depression/PTSD: Recommended the patient to continue follow-up with psychiatrist for optimizing the management of mood disorder. Hypersomnolence could also be due to some of the medications that she is on which have sedative potential including Lamictal and gabapentin. She was recommended to follow-up with her psychiatrist for adjustments of the dosing of the medication. Sleep eating: She reports night eating syndrome and sometimes also reports amnesia to the event, suggesting sleep-related eating disorder. This could be due to possible untreated LEONORA/sleep deprivation/depression. We discussed safety measures in the bed and home environment to prevent trauma. Obesity: We discussed weight management with healthy diet, and exercise. Patient was strongly advised to avoid driving, operating any heavy machinery or other hazardous situations while drowsy or sleepy. Patient was counseled on the importance of driving while alert, to box puller if drowsy, or nap before getting into the vehicle if sleepy. Plan is to communicate results of sleep study in 1 week. CC: Aydee Burton The above note was dictated using voice recognition software. Although reviewed after completion, some word and grammatical error may remain . Please contact the author for any clarifications. I spent a total of 60 minutes with Marta Hawkins during today's video visit. Over 50% of this time was spent counseling the patient and coordinating care regarding LEONORA, HST/PSG, increasing sleep duration and avoiding sleep deprivation, anxiety/depression, sleep eating, weight management , and chart review., including documentation and further activities as noted above. Angel Hannah MD [address] [address] Dept: [phone] documented in this encounter Plan of Treatment Upcoming Encounters Date Type Specialty Care Team Description 09/26/2022 Appointment Speech Therapy Obdulio Barrera MD [address] [facility] [address] [place], [place] [phone] Anabel Chew, SOURCING INTERN [place] [id number] [facility] [address] [place] [address] 09/27/2022 Therapy Visit Physical Therapy Luisana Watkins, PT [address] [place] [address] 09/29/2022 Virtual Visit Pain & Palliative Marilia Deluna, Care PhD [address] [place] [address] 09/30/2022 Office Visit Family Practice Aydee Burton, BROACHING MACHINE SET UP OPERATOR EMBROIDERY CUTTER [address] [place], [place] [address] 10/03/2022 Therapy Visit Physical Therapy Una Reardon, PT [address] [place] [address] 10/10/2022 Hospital Encounter Surgery Lesly Celaya MD [address] [place], [place] [address] 10/10/2022 Office Visit Surgery Lesly Celaya MD [address] [facility] [address] Ninoska Flowers PA-C [address] [facility] [phone] 10/10/2022 Surgery Surgery Lesly Celaya, EXCISION, MASSES - MD back, abdomen, [address] extremity [place], [place] [address] 10/11/2022 Virtual Visit Clari Su, [facility] [address] [facility] [address] [place] [address] 10/14/2022 Appointment Speech Therapy Anabel Chew, SOURCING INTERN [address] [place], [place] [address] 10/21/2022 Office Visit Pulmonology Obdulio Barrera MD [address] [address] 10/25/2022 PRE VISIT ENT Charo Burton MD Previsit [address] [place] [phone] 10/25/2022 Office Visit ENT Charo Burton MD [address] [place] [address] 10/25/2022 Office Visit ENT Provider, Ent Dysphonia Registered Radiation Therapist 10/28/2022 Appointment Speech Therapy Anabel Chew SLP [address] 6[address]25 11/17/2022 Appointment Speech Therapy Anabel Chew SLP [address] [phone] 12/23/2022 Office Visit Neurology Colby Yeung MD [address] [place] [id number] Scheduled Procedures Name Priority Associated Diagnoses Date/Time EXCISION, MASS, TORSO Lipoma of skin and subcuta neous 10/10/2022 7:30 AM FRAMER tissue documented as of this encounter Results Comprehensive Sleep Study (09/09/2021 8:02 PM CDT) Analysis Performed At Patho logist Time Signature SOURCING INTERN Comprehensive [facility] Sleep Specimen (Source) Anatomical Collection Method Collection Time Re ceived Time Location / / Volume Laterality 09/09/2021 8:02 PM CDT Narrative [facility] - 09/24/2021 7:09 AM FRAMER Angel Hannah MD ? 09/23/2021 ??2:15 PM SLEEP STUDY INTERPRETATION DIAGNOSTIC POLYSOMNOGRAPHY REPORT Patient: MARTA HAWKINS Date of : 1980 Study Date: 09/09/2021 Referring Provider: - Ordering Provider: - Indications for Polysomnography: The pat ient is a 41-year-old Female who is 5' 7 and weighs 200.0 lbs . Her BMI is 31.4, Rawlings sleepiness scale 20 and neck cir cumference [...] or dental appliance through referral to [facility] [place] [facility] for control of obstructive events that [...] Periodic Limb Movement Disorder G47.61 ?? 09/09/2021 [facility] Héctor dy (200.0 lbs) - AHI 4.8, RDI 5.0, Supine AHI 7.6, REM AHI 4.1, Lo w O2 83.1%, Time Spent ?88% 0.1 minutes / Time Spent ?89% 0.1 m inutes. Electronically Signed By: (Sunilizzie smith MD), 09/23/21 ?? Procedure Note Angel [...] weighs 200.0 lbs. Her BMI is 31.4, Rawlings sleepiness scale 20 and neck circumference is [...] G47.9 Periodic Limb Movement Disorder G47.61 09/09/2021 [facility] Héctor dy (200.0 lbs) - AHI 4.8, RDI 5.0, Supine AHI 7.6, REM AHI 4.1, Low O2 83.1%, Time Spent ?88% 0.1 minutes / Time Spent ?89% 0.1 minutes. Electronically Signed By: (Suni smith MD), 09/23/21 Angel Hannah MD PROCEDURES Performing Organization Address City/State/ZIP Code Phon e Number [facility] documented in this encounter Visit Diagnoses Diagnosis Sleep disturbance - Primary Sleep disturbance, unspecified Gasping for breath Sleep disturbance Sleep disturbance, unspecified Lipoma of skin and subcutaneous tissue Lipoma of other skin and subcutaneous ti ssue documented in this encounter Additional Health Concerns Assessment Noted Time PHQ-9 Depression Total Score: 22 06/28/2021 7:03 AM CD T documented as of this encounter Care Teams Health And Wellness Coordinator Relationship Specialty Start Date End Date Aydee Burton, PCP - General Nurse Practitioner - 05/17/21 BROACHING MACHINE SET UP OPERATOR EMBROIDERY CUTTER Family [address] [place], [place] [address] Aydee Burton, Assigned PCP 04/28/21 BROACHING MACHINE SET UP OPERATOR EMBROIDERY CUTTER [address] [place], [place] [address] Louisa Hood, Assigned Neuroscience 07/11/21 BROACHING MACHINE SET UP OPERATOR EMBROIDERY CUTTER Provider [address] [place] [address] [place], Assigned Sleep 08/01/21 Angel Turcios, Provider [address] [place] [address] documented as of this encounter
--- OUTSIDE RECORDS SUMMARY | 2022-09-21 04:17 | XMS_ITS | Encounter Summary ---
:1980 Author Organization [facility] Address [address] [facility] [place] [address] Care Team Providers Name Role Phone Aydee Burton APRN [facility] Primary Care Provider [phone] Aydee Burton APRN [facility] Unavailable [phone] Reason for Visit Rehab Therapy Physical Therapy (Routine) - Closed Specialty Diagnoses / Procedures Referred By Contact Refer red To Contact Diagnoses Neck pain Aydee Burton APRN [place] [id number] [address] [phone] Referral ID Status Reason Start Date Expiration Date Visits Requ ested Visits Authorized [id number] Closed 05/21/2021 05/21/2022 1 1 Encounter Details Date Type Department Care Team Description 06/24/2021 Therapy Visit [facility] Jyotsna Ramos, PT Neck pain Rehabilitation Services [facility] [id number] [place] [phone] [place] [address] Social History Tobacco Use Types Packs/Day Years [...] How often do you attend denominational or confucianist services? Never 08/05/2021 Do you [...] at Date Recorded Female 11/09/2021 7:53 PM WOMENS VOLLEYBALL COACH COVID-19 Exposure Response Date Recorded In the last month, have you been in contact with No / Unsure 06/24/2021 8:08 AM CDT someone who was confirmed or suspected to have Coronavirus / COVID-19? documented as of this encounter Plan of Treatment Upcoming Encounters Date Type Specialty Care Team Description 09/26/2022 Appointment Speech Therapy Obdulio Barrera MD [address] [facility] [address] [place] [address] Anabel Chew SLP [place] [phone] [facility] [address] [place], [place] [address] 09/27/2022 Therapy Visit Physical Therapy Luisana Watkins, PT [address] [place] [address] 09/29/2022 Virtual Visit Pain & Palliative Marilia Deluna, [facility] PhD [address] [place] [address] 09/30/2022 Office Visit Family Practice Burton Aydee Mendez, ABLE SEAMAN MEASUREMENT ANALYST [address] [place], [place] [phone] 10/03/2022 Therapy Visit Physical Therapy Una Reardon, PT [address] [place] [phone] 10/10/2022 Hospital Encounter Surgery Lesly Celaya MD [address] [place], [place] [phone] 10/10/2022 Office Visit Surgery Lesly Celaya MD [address] [place], [place] [phone] Ninoska Flowers PA-C [address] [facility] [address] [place] [address] 10/10/2022 Surgery Surgery Lesly Celaya, EXCISION, MASSES - MD back, abdomen, [address] right lower [facility] extremity [place], [place] [phone] 10/11/2022 Virtual Visit Calri Su, [facility] [address] [place] [phone] [place] [address] 10/14/2022 Appointment Speech Therapy Anabel Chew, CLIENT SUPPORT COORDINATOR [facility] [address] [facility] [address] [place] [address] 10/21/2022 Office Visit Pulmonology Obdulio Barrera MD [address] [facility] [address] [place], [place] [address] 10/25/2022 PRE VISIT ENT Charo Burton MD Previsit [address] [place] [address] 10/25/2022 Office Visit ENT Charo Burton MD [address] [place] [id number] 10/25/2022 Office Visit ENT Provider, Jeannette Ent Dysphonia Product Controller 10/28/2022 Appointment Speech Therapy Anabel Chew, CLIENT SUPPORT COORDINATOR [address] [place] [address] 11/17/2022 Appointment Speech Therapy Anabel Chew, CLIENT SUPPORT COORDINATOR [address] [place] [address] 12/23/2022 Office Visit Neurology Colby Yeung MD [address] [place] [address] Scheduled Procedures Name Priority Associated Diagnoses Date/Time EXCISION, MASS, TORSO Lipoma of skin and subcuta neous 10/10/2022 7:30 AM WOMENS VOLLEYBALL COACH tissue documented as of this encounter Procedures Procedure Name Priority Date/Time Associated Diagnosis Comme nts FL MANUAL THERAPY, EA 15 Routine 06/24/2021 9:08 AM CDT Neck p ain MIN FL THERAPEUTIC Routine 06/24/2021 9:08 AM CDT Neck pain EXERCISES. EA 15 MIN FL ULTRASOUND THERAPY, Routine 06/24/2021 9:08 AM CDT Neck naveen n EA 15 MIN documented in this encounter Visit Diagnoses Diagnosis Neck pain Cervicalgia Lipoma of skin and subcutaneous tissue Lipoma of other skin and subcutaneous ti ssue documented in this encounter Additional Health Concerns Assessment Noted Time PHQ-9 Depression Total Score: 17 06/12/2021 7:02 AM CD T documented as of this encounter Care Teams Five Piece Expansion Maker Hand Relationship Specialty Start Date End Date Aydee Burton, PCP - General Nurse Practitioner - 05/17/21 ABLE SEAMAN [address] [phone] Aydee Burton, Assigned PCP 04/28/21 ABLE SEAMAN [address] [phone] documented as of this encounter
--- OUTSIDE RECORDS SUMMARY | 2022-09-21 04:17 | XMS_ITS | Encounter Summary ---
:1980 Author Organization [facility] Address [address] [place] [address] Care Team Providers Name Role Phone Aydee Burton APRN, CNP Primary Care Provider [phone] Aydee Burton APRN SENIOR PROCESS ENGINEER Unavailable [phone] Encounter Details Date Type Department Care Team Description 06/30/2021 Travel Social History Tobacco Use Types Packs/Day [...] How often do you attend alevism or yazidi services? Never 08/05/2021 Do you [...] at Date Recorded Female 11/09/2021 7:53 PM MARKETING ROTATION ASSOCIATE COVID-19 Exposure Response Date Recorded In the last month, have you been in contact with No / Unsure 06/30/2021 11:09 AM CDT someone who was confirmed or suspected to have Coronavirus / COVID-19? documented as of this encounter Plan of Treatment Upcoming Encounters Date Type Specialty Care Team Description 09/26/2022 Appointment Speech Therapy Obdulio Barrera MD [address] [facility] [address] [place], [place] [id number] Anabel Chew, CONFECTIONERY LABORATORY MANAGER [address] [place], [place] [id number] 09/27/2022 Therapy Visit Physical Therapy Luisana Watkins, PT [address] [place] [address] 09/29/2022 Virtual Visit Pain & Palliative Marilia Deluna, Ronald PhD [address] [place] [address] 09/30/2022 Office Visit Family Practice Aydee Burton, LOGISTIC MANAGER SENIOR PROCESS ENGINEER [address] [place], [place] [phone] 10/03/2022 Therapy Visit Physical Therapy Una Reardon, PT [address] [place] [address] 10/10/2022 Hospital Encounter Surgery Lesly Celaya MD [address] [place], [place] [address] 10/10/2022 Office Visit Surgery Lesly Celaya MD [address] [place], [place] [address] Ninoska Flowers, FLORES-C [address] [place], [place] [phone] 10/10/2022 Surgery Surgery Lesly Celaya, EXCISION, MASSES - MD back, abdomen, [address] [place] [address] 10/11/2022 Virtual Visit Clari Su, [place] [id number] [phone] 10/14/2022 Appointment Speech Therapy Anabel Chew, CONFECTIONERY LABORATORY MANAGER [address] [id number] 10/21/2022 Office Visit Pulmonology Obdulio Barrera MD [address] [place] [address] [address] [place], [place] [address] 10/25/2022 PRE VISIT ENT Charo Burton MD Previsit [address] [place] [phone] 10/25/2022 Office Visit Charo Carter MD [address] [place] [address] [phone] 10/25/2022 Office Visit ENT Provider, Jeannette Ent Dysphonia Weatherseal Technician 10/28/2022 Appointment Speech Therapy Anabel Chew, CONFECTIONERY LABORATORY MANAGER [address] [address] 11/17/2022 Appointment Speech Therapy Anabel Chew, CONFECTIONERY LABORATORY MANAGER [address] [place] [address] 12/23/2022 Office Visit Neurology Colby Yeung MD [address] [place] [id number] Scheduled Procedures Name Priority Associated Diagnoses Date/Time EXCISION, MASS, TORSO Lipoma of skin and subcuta neous 10/10/2022 7:30 AM MARKETING ROTATION ASSOCIATE tissue documented as of this encounter Visit Diagnoses Not on filedocumented in this encounter Additional Health Concerns Assessment Noted Time PHQ-9 Depression Total Score: 22 06/28/2021 7:03 AM CD T documented as of this encounter Care Teams Delinquency Prevention Social Worker Relationship Specialty Start Date End Date Aydee Burton, PCP - General Nurse Practitioner - 05/17/21 LOGISTIC MANAGER SENIOR PROCESS ENGINEER Family [address] [place] [id number] Aydee Burton, Assigned PCP 04/28/21 LOGISTIC MANAGER [facility] [address] [place], [place] [address] documented as of this encounter
--- OUTSIDE RECORDS SUMMARY | 2022-09-21 04:17 | XMS_ITS | Encounter Summary ---
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 EXCISION, MASS, TORSO Lipoma of skin and subcuta neous 10/10/2022 7:30 AM MARKETING/SALES PERSON tissue documented as of this encounter Visit Diagnoses Diagnosis Insomnia due to psychological stress - P rimary PTSD (post-traumatic stress disorder) Posttraumatic stress disorder SHAMEKA (generalized anxiety disorder) Generalized anxiety disorder Severe episode of recurrent major depres sive disorder, without psychotic features (H) Lipoma of skin and subcutaneous tissue Lipoma of other skin and subcutaneous ti ssue documented in this encounter Additional Health Concerns Assessment Noted Time PHQ-9 Depression Total Score: 22 06/28/2021 7:03 AM CD T documented as of this encounter Care Teams Planer Operator / Grader Relationship Specialty Start Date End Date Aydee Burton, PCP - General Nurse Practitioner - 05/17/21 REVENUE ANALYST TAXATION ECONOMIST [address] [phone] Aydee Burton, Assigned PCP 04/28/21 REVENUE ANALYST [address] [phone] documented as of this encounter
--- OUTSIDE RECORDS SUMMARY | 2022-09-21 04:18 | XMS_ITS | Encounter Summary ---
:1980 Author Organization [place] Address [address] [place] [address] Care Team Providers Name Role Phone Aydee Burton APRN, CNP Primary Care Provider [phone] Aydee Burton APRN INSTRUCTOR MODELING Unavailable [phone] Encounter Details Date Type Department Care Team Description 06/11/2021 Travel Social History Tobacco Use Types Packs/Day [...] How often do you attend shinto or amish services? Never 08/05/2021 Do you [...] at Date Recorded Female 11/09/2021 7:53 PM CONCRETE CRUSHER LOADER OPERATOR COVID-19 Exposure Response Date Recorded In the last month, have you been in contact with No / Unsure 06/11/2021 10:20 AM CDT someone who was confirmed or suspected to have Coronavirus / COVID-19? documented as of this encounter Plan of Treatment Upcoming Encounters Date Type Specialty Care Team Description 09/26/2022 Appointment Speech Therapy Obdulio Barrera MD 420 [facility] [place] [address] [place], [place] [address] Anabel Chew, ADMISSIONS COORDINATOR [address] [place], [place] [address] 09/27/2022 Therapy Visit Physical Therapy Luisana Watkins, PT [address] [place] [address] 09/29/2022 Virtual Visit Pain & Palliative Marilia Deluna, Ronald PhD [address] [place] [address] 09/30/2022 Office Visit Family Practice Aydee Burton, CONCESSIONIST INSTRUCTOR MODELING [address] [place] [employer], [place] [address] 10/03/2022 Therapy Visit Physical Therapy Una Reardon, PT [address] [place] [phone] 10/10/2022 Hospital Encounter Surgery Lesly Celaya MD [address] [place], [place] [address] 10/10/2022 Office Visit Surgery Lesly Celaya MD [address] [place], [place] [address] Ninoska Flowers, FLORES-C [address] [place], [place] [phone] 10/10/2022 Surgery Surgery Lesly Celaya, EXCISION, MASSES - MD back, abdomen, [address] [place] [address] 10/11/2022 Virtual Visit Clari Su, [place] [phone] [address] 618044 10/14/2022 Appointment Speech Therapy Anabel Chew, ADMISSIONS COORDINATOR [address] [address] 10/21/2022 Office Visit Pulmonology Obdulio Barrera MD [address] [place] [address] 276 [place], [place] [address] 10/25/2022 PRE VISIT ENT Charo Burton MD Previsit [address] [place] [address] 227225 10/25/2022 Office Visit Charo Carter MD [address] [place] [address] [phone] 10/25/2022 Office Visit ENT Provider, Jeannette Ent Dysphonia Signal Tower Operator 10/28/2022 Appointment Speech Therapy Anabel Chew, ADMISSIONS COORDINATOR [address] [address] 11/17/2022 Appointment Speech Therapy Anabel hCew, ADMISSIONS COORDINATOR [address] [place] [address] 12/23/2022 Office Visit Neurology Colby Yeung MD [address] [address]365 Scheduled Procedures Name Priority Associated Diagnoses Date/Time EXCISION, MASS, TORSO Lipoma of skin and subcuta neous 10/10/2022 7:30 AM CONCRETE CRUSHER LOADER OPERATOR tissue documented as of this encounter Visit Diagnoses Not on filedocumented in this encounter Additional Health Concerns Assessment Noted Time PHQ-9 Depression Total Score: 17 06/12/2021 7:02 AM CD T documented as of this encounter Care Teams Physician Relations Representative Relationship Specialty Start Date End Date Aydee Burton, PCP - General Nurse Practitioner - 05/17/21 CONCESSIONIST INSTRUCTOR MODELING Family [address] [place] [address] [phone] Aydee Burton, Assigned PCP 04/28/21 CONCESSIONIST [facility] [address] [place] [employer], [place] [address]42 documented as of this encounter
--- OUTSIDE RECORDS SUMMARY | 2022-09-21 04:18 | XMS_ITS | Encounter Summary ---
:1980 Author Organization [facility] Address [address] [facility] [place] [address] Care Team Providers Name Role Phone Aydee Burtno APRN, CNP Primary Care Provider [phone] Aydee Burton APRN [facility] Unavailable [phone] Reason for Visit Rehab Therapy Physical Therapy (Routine) - Closed Specialty Diagnoses / Procedures Referred By Contact Refer red To Contact Diagnoses Neck pain Aydee Burton APRN [address] [phone] Referral ID Status Reason Start Date Expiration Date Visits Requ ested Visits Authorized [id number] Closed 05/21/2021 05/21/2022 1 1 Encounter Details Date Type Department Care Team Description 06/10/[address] [facility] Aydee Burton Ch, APRN [address] [address] Neck pain [place] [address] [place] [address] [place] [address] [place] [phone] Social History Tobacco Use Types [...] How often do you attend sabianist or jehovah's witness services? Never 08/05/2021 Do [...] at Date Recorded Female 11/09/2021 7:53 PM INTERPRETER COVID-19 Exposure Response Date Recorded In the last month, have you been in contact with No / Unsure 06/10/2021 8:39 AM CDT someone who was confirmed or suspected to have Coronavirus / COVID-19? documented as of this encounter Plan of Treatment Upcoming Encounters Date Type Specialty Care Team Description 09/26/2022 Appointment Speech Therapy Obdulio Barrera MD [address] [place] [phone] Anabel Chew, DOUGH PANNER [facility] [address] [facility] 396 [place] [address] 09/27/2022 Therapy Visit Physical Therapy Luisana Watkins, PT 2[address] [place] [address] 09/29/2022 Virtual Visit Pain & Palliative Marilia Deluna, [facility] PhD [address] [place], [place] [address] 09/30/2022 Office Visit Family Practice Aydee Burton, PHLEBOTOMY LAB ASSISTANT CLINICAL TRAINING COORDINATOR 4[address] [place] [address] 10/03/2022 Therapy Visit Physical Therapy Una Reardon, PT 2155 [place] [address] 10/10/2022 Hospital Encounter Surgery Lesly Celaya MD [address] [place] [address] 10/10/2022 Office Visit Surgery Lesly Celaya MD [address] [place] [address] Ninoska Flowers, PA-C [address] [place] [address] 10/10/2022 Surgery Surgery Lesly Celaya, EXCISION, MASSES - MD back, abdomen, [address] right lower [facility] [place] [address] 10/11/2022 Virtual Visit Clari Su, [facility] 2450 [facility] F[address] [place], [place] [address] 10/14/2022 Appointment Speech Therapy Anabel Chew, DOUGH PANNER [address] 396 [place] [address] 10/21/2022 Office Visit Pulmonology Obdulio Barrera MD 420 [facility] 276 [place] [address] 10/25/2022 PRE VISIT ENT Charo Burton MD Previsit [address] [place] [address] 10/25/2022 Office Visit ENT Charo Burton MD [address] [place] [address] 10/25/2022 Office Visit ENT Provider, Ent Dysphonia Recreational Specialist 10/28/2022 Appointment Speech Therapy Anabel Chew, CELINE [address] [address] 11/17/2022 Appointment Speech Therapy Anabel Chew DOUGH PANNER [address] [address] 12/23/2022 Office Visit Neurology Colby Yeung MD [address] [place] [address] Scheduled Procedures Name Priority Associated Diagnoses Date/Time EXCISION, MASS, TORSO Lipoma of skin and subcuta neous 10/10/2022 7:30 AM INTERPRETER tissue documented as of this encounter Procedures Procedure Name Priority Date/Time Associated Diagnosis Comme nts MT THERAPEUTIC Routine 06/10/2021 9:10 AM CDT Neck pain EXERCISES. EA 15 MIN MT ELECTRIC STIMULATION Routine 06/10/2021 9:10 AM CDT Neck pa in THERAPY MT HOT OR COLD PACKS Routine 06/10/2021 9:10 AM CDT Neck pain THERAPY documented in this encounter Visit Diagnoses Diagnosis Neck pain Cervicalgia Lipoma of skin and subcutaneous tissue Lipoma of other skin and subcutaneous ti ssue documented in this encounter Additional Health Concerns Assessment Noted Time PHQ-9 Depression Total Score: 16 05/28/2021 2:58 PM CD T documented as of this encounter Care Teams Gold Beater Relationship Specialty Start Date End Date Aydee Burton, PCP - General Nurse Practitioner - 05/17/21 PHLEBOTOMY LAB ASSISTANT CLINICAL TRAINING COORDINATOR [address] [phone] Aydee Burton, Assigned PCP 04/28/21 PHLEBOTOMY LAB ASSISTANT CLINICAL TRAINING COORDINATOR [address] [place] [phone] documented as of this encounter
--- OUTSIDE RECORDS SUMMARY | 2022-09-21 04:18 | XMS_ITS | Encounter Summary ---
:1980 Author Organization [facility] Address [address] [place] [address] Care Team Providers Name Role Phone Aydee Burton APRN, CNP Primary Care Provider [phone] Aydee Burton APRN CRAFT COORDINATOR Unavailable [phone] Encounter Details Date Type Department Care Team Description 06/10/2021 Travel Social History Tobacco Use Types Packs/Day [...] How often do you attend gnosticist or jainism services? Never 08/05/2021 Do you [...] at Date Recorded Female 11/09/2021 7:53 PM CERTIFIED NURSES AIDE COVID-19 Exposure Response Date Recorded In [...] [facility] [address] [place], [place] [address] Anabel Chew, AIR CONDITIONING SUPERVISOR [address] [place], [place] [address] 09/27/2022 Therapy Visit Physical Therapy Luisana Watkins, PT [address] [place] [address] 09/29/2022 Virtual Visit Pain & Palliative Marilia Deluna, Ronald PhD [address] [place] [address] 09/30/2022 Office Visit Family Practice Aydee Burton, MOUNTAIN GUIDE CRAFT COORDINATOR [address] [place], [place] [address] 10/03/2022 Therapy Visit Physical Therapy Una Reardon, PT [address] [place] [phone] 10/10/2022 Hospital Encounter Surgery Lesly Celaya MD [address] [place], [place] [address] 10/10/2022 Office Visit Surgery Lesly Celaya MD [address] [place], [place] [address] Ninoska Flowers, FLORES-C [address] [place], [place] [phone] 10/10/2022 Surgery Surgery Lesly Celaya, EXCISION, MASSES - MD back, abdomen, [address] [place] [address] 10/11/2022 Virtual Visit Clari Su, [place] [phone] [address] 9896[address] 10/14/2022 Appointment Speech Therapy Anabel Chew, AIR CONDITIONING SUPERVISOR [address] [address] 10/21/2022 Office Visit Pulmonology Obdulio Barrera MD [address] [place] [address] 276 [place], [place] [address] 10/25/2022 PRE VISIT ENT Charo Burton MD Previsit [address] [place] [phone] 10/25/2022 Office Visit Charo Carter MD [address] [place] [phone] 10/25/2022 Office Visit ENT Provider, Jeannette Ent Dysphonia Health And Wellness Director 10/28/2022 Appointment Speech Therapy Anabel Chew, AIR CONDITIONING SUPERVISOR [address] [address] 11/17/2022 Appointment Speech Therapy Anabel Chew, AIR CONDITIONING SUPERVISOR [address] [place] [address] 12/23/2022 Office Visit Neurology Cloby Yeung MD [address] [address]44205 Scheduled Procedures Name Priority Associated Diagnoses Date/Time EXCISION, MASS, TORSO Lipoma of skin and subcuta neous 10/10/2022 7:30 AM CERTIFIED NURSES AIDE tissue documented as of this encounter Visit Diagnoses Not on filedocumented in this encounter Additional Health Concerns Assessment Noted Time PHQ-9 Depression Total Score: 16 05/28/2021 2:58 PM CD T documented as of this encounter Care Teams Marine Water Tender Relationship Specialty Start Date End Date Aydee Burton, PCP - General Nurse Practitioner - 05/17/21 MOUNTAIN GUIDE CRAFT COORDINATOR Family [address] [place] [address] [phone] Aydee Burton, Assigned PCP 04/28/21 MOUNTAIN GUIDE [facility] [address] [place], [place] 3[address] documented as of this encounter
--- OUTSIDE RECORDS SUMMARY | 2022-09-21 04:18 | XMS_ITS | Encounter Summary ---
:1980 Author Organization [place] Address [address] [place] [address] Care Team Providers Name Role Phone Aydee Burton APRN, CNP Primary Care Provider [phone] Aydee Burton APRN AGRICULTURIST Unavailable [phone] Reason for Visit Reason Onset Date Comments Medication Problem 06/11/2021 duloxetine Encounter Details Date Type Department Care Team Description 06/11/2021 Refill M [facility] Aydee Burton, Medication Problem Clinic [place] ELADIO KOO (duloxetine) [address] [place] [address] [place], [place] [phone] (Wo rk) [phone] Social History Tobacco Use Types Packs/Day Years [...] How often do you attend caodaism or amish services? Never 08/05/2021 Do you [...] at Date Recorded Female 11/09/2021 7:53 PM FIRER ELECTRIC LOCOMOTIVE COVID-19 Exposure Response Date Recorded In the last month, have you been in contact with No / Unsure 06/11/2021 10:20 AM CDT someone who was confirmed or suspected to have Coronavirus / COVID-19? documented as of this encounter Miscellaneous Notes Telephone Encounter - Aydee Burton APRN CNP - 06/14/2021 1:38 PM CDT Images from the original note were not included. Agreed. Signed and sent. MARINO Spivey Telephone Encounter - Court Mcmullen RN - 06/14/2021 1:19 PM CDT Patient called back regarding results and meds sent to pharmacy. RN reviewed recent med changes to verify if any issues. Script from 60mg duloxetine set included instructions stating DULoxetine (CYMBALTA) 30 MG capsule (Discontinued) 60 capsule 1 06/13/2021 06/14/2021 No Sig - Route: Take 2 capsules (60 mg) by mouth daily Take with 30 mg dose for a total of 90 mg daily - Oral Patient states, prescription should be for 1 60mg tablet taking 1x daily AND 1 30mg tablet taking 1xdaily to total 90mg. Please review and approve 60mg script if ok. See original message from [facility] with verification. Court Alford RN Telephone Encounter - Aydee Burton APRN CNP - 06/13/2021 10:40 AM CDT Images from the original note were not included. 2 scripts sent one for 60 mg one for 30 mg. MARINO Spivey Telephone Encounter - Mayda Stephens RN - 06/11/2021 2:35 PM CDT Received call from Jacqueline @ [facility] regarding Duloxetine 30mg prescription. States insurance will not cover 3 tab daily. Jacqueline is suggesting e-scribing 2 prescriptions: One [id number] and one for 60mg. Last office visit 06-11-21 Please advise, thanks. Addendum Note - Court Mcmullen RN - 06/11/2021 2:34 PM CDT Addended by: COURT MCMULLEN on: 06/14/2021 01:24 PM Modules accepted: Orders documented in this encounter Plan of Treatment Upcoming Encounters Date Type Specialty Care Team Description 09/26/2022 Appointment Speech Therapy Obdulio Barrera MD 420 [facility] 276 [place] [address] Anabel Chew SLP [facility] 516 [facility] 396 [place] [address] 09/27/2022 Therapy Visit Physical Therapy Luisana Watkins, PT [address] [place] [address] 09/29/2022 Virtual Visit Pain & Palliative Marilia Deluna, [facility] PhD [address] [place] [address] 09/30/2022 Office Visit Family Practice Micheal Aydee Mendez, FIXED INCOME MANAGER AGRICULTURIST [address] [place], [place] [address] 10/03/2022 Therapy Visit Physical Therapy Una Reardon, PT [address] [place] [address] 10/10/2022 Hospital Encounter Surgery Lesly Celaya MD [address] [place] [address] 10/10/2022 Office Visit Surgery Lesly Celaya MD [address] [place] [address] Ninoska Flowers PA-Ynes [address] [facility] 300 [place] [address] 10/10/2022 Surgery Surgery Lesly Celaya, EXCISION, MASSES - MD back, abdomen, [address] right lower [facility] [place] [address] 10/11/2022 Virtual Visit Clari Su, [facility] [address] [place] [phone] [place], [place] [address] 10/14/2022 Appointment Speech Therapy Anabel Chew, PETROLEUM REFINING EQUIPMENT OPERATOR [facility] 516 [facility] 396 [place], [place] [phone] 10/21/2022 Office Visit Pulmonology Obdulio Barrera MD 420 [facility] 276 [place], [place] [address] 10/25/2022 PRE VISIT ENT Charo Burton MD Previsit [address] [place] [address] [phone] 10/25/2022 Office Visit ENT Charo Burton MD 9 [place], [place] [address] 10/25/2022 Office Visit ENT Provider, Ent Dysphonia Tractor Technician 10/28/2022 Appointment Speech Therapy Anabel Chew, PETROLEUM REFINING EQUIPMENT OPERATOR [address] [place], [place] [address] 11/17/2022 Appointment Speech Therapy Anabel Chew, PETROLEUM REFINING EQUIPMENT OPERATOR [address] [place], [place] [address] 12/23/2022 Office Visit Neurology Colby Yeung MD [address] [address] Scheduled Procedures Name Priority Associated Diagnoses Date/Time EXCISION, MASS, TORSO Lipoma of skin and subcuta neous 10/10/2022 7:30 AM FIRER ELECTRIC LOCOMOTIVE tissue documented as of this encounter Visit Diagnoses Diagnosis Bilateral occipital neuralgia Other syndromes affecting cervical regio n Lipoma of skin and subcutaneous tissue Lipoma of other skin and subcutaneous ti ssue documented in this encounter Additional Health Concerns Assessment Noted Time PHQ-9 Depression Total Score: 17 06/12/2021 7:02 AM CD T documented as of this encounter Care Teams Telephone Engineer Relationship Specialty Start Date End Date Aydee Burton, PCP - General Nurse Practitioner - 05/17/21 FIXED INCOME MANAGER AGRICULTURIST Family [address] [place] [address] Aydee Burton, Assigned PCP 04/28/21 FIXED INCOME MANAGER AGRICULTURIST 4151 [facility] [place] [id number] documented as of this encounter
--- OUTSIDE RECORDS SUMMARY | 2022-09-21 04:18 | XMS_ITS | Encounter Summary ---
:1980 Author Organization Veteran Address [address] [place] [address] Care Team Providers Name Role Phone Aydee Burton APRN BOX CAR LOADER Primary Care Provider [phone] Aydee Burton APRN BOX CAR LOADER Unavailable [phone] Reason for Referral Diagnostic Imaging Ultrasound (Routine) - Closed Specialty Diagnoses / Procedures Referred By Contact Refer red To Contact Diagnoses Elevated LFTs Aydee Burton APRN Procedures US Abdomen Limited BOX CAR LOADER [address] [place] [address] Referral ID Status Reason Start Date Expiration Date Visits Requ ested Visits Authorized [id number] Closed 05/21/2021 05/21/2022 1 1 Reason for Visit Diagnostic Imaging Ultrasound (Routine) - Closed Specialty Diagnoses / Procedures Referred By Contact Refer red To Contact Diagnoses Elevated LFTs Aydee Burton APRN Procedures US Abdomen Limited BOX CAR LOADER [address] [place] [address] Referral ID Status Reason Start Date Expiration Date Visits Requ ested Visits Authorized [id number] Closed 05/21/2021 05/21/2022 1 1 Encounter Details Date Type Department Care Team Description 06/04/2021 Hospital Encounter [facility] Aydee Burton Elev ated [facility] Specialty Care ELADIO Mendez [facility] Center Imaging [address] [facility] [id number] [place] [address] [address] [place] [address] [place], [place] [phone] (Wo rk) [address] [phone] Social History Tobacco Use Types Packs/Day Years [...] How often do you attend voodoo or jainism services? 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 documented as of this encounter Medications at Time of Discharge Medication Sig Dispensed Refills Start Date End Date buPROPion (WELLBUTRIN XL) Take 300 mg by mouth 0 05/02/2021 07/08/2021 300 MG 24 hr daily tabletIndications: Anxiety, Depression, unspecified depression type, PTSD (post-traumatic stress disorder) ciprofloxacin (CIPRO) 500 Take 1 tablet (500 6 tablet 0 06/11/2021 MG tabletIndications: mg) by mouth 2 times Urinary tract infection daily without hematuria, site unspecified DULoxetine (CYMBALTA) 30 TAKE 3 CAPSULES BY 0 06/11/2021 MG capsuleIndications: MOUTH ONCE DAILY Bilateral occipital neuralgia gabapentin (NEURONTIN) Take 400 mg by mouth 0 07/08/2021 400 MG 4 times daily capsuleIndications: Anxiety, Depression, unspecified depression type, PTSD (post-traumatic stress disorder), Bilateral occipital neuralgia lamoTRIgine (LAMICTAL) Take 200 mg by mouth 0 07/08/2021 200 MG tabletIndications: At Bedtime Anxiety, Depression, unspecified depression type, PTSD (post-traumatic stress disorder) phenazopyridine Take 200 mg by mouth 0 06/11/2021 (PYRIDIUM) 200 MG tablet 3 times daily as needed for irritation QUEtiapine (SEROQUEL) 50 Take 50 mg by mouth 0 07/08/2021 MG tabletIndications: Anxiety, Depression, unspecified depression type, PTSD (post-traumatic stress disorder) documented as of this encounter Plan of Treatment Upcoming Encounters Date Type Specialty Care Team Description 09/26/2022 Appointment Speech Therapy Obdulio Barrera MD [address] [facility] [address] [place] [address] Anabel Chew, YEAST CULTURE DEVELOPER [facility] [address] [facility] 396 [place] [address] 09/27/2022 Therapy Visit Physical Therapy Luisana Watkins, PT [address] [place] [address] 09/29/2022 Virtual Visit Pain & Palliative Marilia Deluna, [facility] PhD [address] [place] [address] 09/30/2022 Office Visit Family Practice Aydee Burton, HANDLE LATHE OPERATOR BOX CAR LOADER [address] [place], [place] [address] 10/03/2022 Therapy Visit Physical Therapy David-Una Tang, PT [address] [place] [address] 10/10/2022 Hospital Encounter Surgery Lesly Celaya MD [address] [place] [address] 10/10/2022 Office Visit Surgery Lesly Celaya MD [address] [place] [address] Ninoska Flowers, PA-C [address] [place] [address] 10/10/2022 Surgery Surgery Lesly Celaya, EXCISION, MASSES - back, abdomen, [address] right lower [place] [address] 10/11/2022 Virtual Visit Clari Su, [facility] [address] [phone] [place], [place] [address] 10/14/2022 Appointment Speech Therapy Anabel Chew, YEAST CULTURE DEVELOPER [facility] [address] [facility] 396 [place] [address] 10/21/2022 Office Visit Pulmonology Obdulio Barrera MD [address] [facility] [address] [place] [address] 10/25/2022 PRE VISIT ENT Charo Burton MD Previsit [address] [place] [address] 10/25/2022 Office Visit Charo Carter MD [address] [place] [address] 10/25/2022 Office Visit ENT Provider, Ent Dysphonia Machine Tack Puller 10/28/2022 Appointment Speech Therapy Anabel Chew, YEAST CULTURE DEVELOPER [address] [address] 11/17/2022 Appointment Speech Therapy Anabel Chew YEAST CULTURE DEVELOPER [address] 317735 12/23/2022 Office Visit Neurology Colby Yeung MD [address] [place], [place] [address] Scheduled Procedures Name Priority Associated Diagnoses Date/Time EXCISION, MASS, TORSO Lipoma of skin and subcuta neous 10/10/2022 7:30 AM CARPENTRY TEACHER tissue documented as of this encounter Procedures Procedure Name Priority Date/Time Associated Diagnosis Comme nts US ABDOMEN LIMITED Routine 06/04/2021 8:29 AM Elevated LFTs Re sults for this CDT procedure are i n the results section. documented in this encounter Results US Abdomen Limited (06/04/2021 8:29 AM CDT) Anatomical Region Laterality Modality Abdomen/Pelvis Ultrasound Specimen (Source) Anatomical Location Collection Method / Collectio n Time Received Time / Laterality Volume Impressions 06/04/2021 9:35 AM CDT IMPRESSION: ?? 1. Hepatic steatosis. No focal hepatic m ass is visualized. 2. Layering gallbladder sludge. No shado wing gallstones or sonographic evidence of acute cholecystitis. TIA CHOWDHURY MD Narrative 06/04/2021 9:35 AM CDT US ABDOMEN LIMITED ?? 06/04/2021 8:29 AM HISTORY: ??Elevated LFTs. COMPARISON: None available. FINDINGS: ??Technically challenging exam due to overlying bowel gas. Gallbladder: Layering debris/sludge. No shadowing gallstones, gallbladder wall thickening or perichole cystic fluid. Sonographic Peters's sign is negative. Bile ducts: ??CHD is normal diameter. ?? No intrahepatic biliary dilatation. The distal aspect of the com mon bile duct is obscured by overlying bowel gas. Liver: It demonstrates increased parench ymal echogenicity. No focal hepatic mass is visualized. Pancreas: ??Partially obscured by overly ing bowel gas, ??but grossly unremarkable. Right kidney: ??No hydronephrosis or sha dowing calculi. Aorta and IVC: ??Not specifically assess ed. Procedure Note Tia Chowdhury MD - 06/04/2021Forma tting of this note might be different from the original. US ABDOMEN LIMITED 06/04/2021 8:29 AM HISTORY: Elevated LFTs. COMPARISON: None available. FINDINGS: Technically challenging exam d ue to overlying bowel gas. Gallbladder: Layering debris/sludge. No shadowing gallstones, gallbladder wall thickening or perichole cystic fluid. Sonographic Peters's sign is negative. Bile ducts: CHD is normal diameter. No i ntrahepatic biliary dilatation. The distal aspect of the com mon bile duct is obscured by overlying bowel gas. Liver: It demonstrates increased parench ymal echogenicity. No focal hepatic mass is visualized. Pancreas: Partially obscured by overlyin g bowel gas, but grossly unremarkable. Right kidney: No hydronephrosis or shado wing calculi. Aorta and IVC: Not specifically assessed . IMPRESSION: 1. Hepatic steatosis. No focal hepatic m ass is visualized. 2. Layering gallbladder sludge. No shado wing gallstones or sonographic evidence of acute cholecystitis. TIA CHOWDHURY MD Aydee Burton HANDLE LATHE OPERATOR BOX CAR LOADER IMG US ORDERABLES documented in this encounter Visit Diagnoses Diagnosis Elevated LFTs Other abnormal blood chemistry Lipoma of skin and subcutaneous tissue Lipoma of other skin and subcutaneous ti ssue documented in this encounter Additional Health Concerns Assessment Noted Time PHQ-9 Depression Total Score: 16 05/28/2021 2:58 PM CD T documented as of this encounter Care Teams Physical Education Aide Relationship Specialty Start Date End Date Aydee Burton, PCP - General Nurse Practitioner - 05/17/21 HANDLE LATHE OPERATOR BOX CAR LOADER [facility] [address] [place] [address] [id number] Aydee Burton, Assigned PCP 04/28/21 HANDLE LATHE OPERATOR [address] [address] documented as of this encounter
--- OUTSIDE RECORDS SUMMARY | 2022-09-21 04:18 | XMS_ITS | Encounter Summary ---
:1980 Author Organization [facility] Address [address] [place] [address] Care Team Providers Name Role Phone Aydee Burton APRN, CNP Primary Care Provider [phone] Aydee Burton APRN INDUSTRIAL ELECTRICAL TECHNICIAN Unavailable [phone] Encounter Details Date Type Department Care Team Description 06/03/2021 Travel Social History Tobacco Use Types Packs/Day [...] How often do you attend moravian or religion services? 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 documented as of this encounter Plan of Treatment Upcoming Encounters Date Type Specialty Care Team Description 09/26/2022 Appointment Speech Therapy Obdulio Barrera MD [address] [facility] 276 [place], [place] [address] Anabel Chew, CARD PAINTER [address] [place], [place] [address] 09/27/2022 Therapy Visit Physical Therapy Luisana Watkins, PT [address] [place] [address] 09/29/2022 Virtual Visit Pain & Palliative Marilia Deluna, Ronald PhD [address] [place] [address] 09/30/2022 Office Visit Family Practice Aydee Burton, WHEELAGE CLERK INDUSTRIAL ELECTRICAL TECHNICIAN [address] [place], [place] [address]402 10/03/2022 Therapy Visit Physical Therapy Una Reardon, PT [address] [place] [phone] 10/10/2022 Hospital Encounter Surgery Lesly Cealya MD [address] [place], [place] [address] 10/10/2022 Office Visit Surgery Lesly Celaya MD [address] [place], [place] [address] Ninoska Flowers, FLORES-C [address] [place], [place] [address] 10/10/2022 Surgery Surgery Lesly Celaya, EXCISION, MASSES - MD back, abdomen, [address] right [place] [address] 10/11/2022 Virtual Visit Clari Su, [place] [phone] [address] 10/14/2022 Appointment Speech Therapy Anabel Chew, CARD PAINTER [address] [address]88[address] 10/21/2022 Office Visit Pulmonology Obdulio Barrera MD [address] [place] [address] 276 [place], [place] [address] 10/25/2022 PRE VISIT ENT Charo Burton MD Previsit [address] [place] [address] 725235 10/25/2022 Office Visit Charo Carter MD [address] [place] [id number] 10/25/2022 Office Visit ENT Provider, Jeannette Ent Dysphonia Hematology Technician 10/28/2022 Appointment Speech Therapy Anabel Chew, CARD PAINTER [address] [address] 11/17/2022 Appointment Speech Therapy Anabel Chew, CARD PAINTER [address] [place] [address] 12/23/2022 Office Visit Neurology Colby Yeung MD [address] [place] [address] Scheduled Procedures Name Priority Associated Diagnoses Date/Time EXCISION, MASS, TORSO Lipoma of skin and subcuta neous 10/10/2022 7:30 AM MACHINE WORKER tissue documented as of this encounter Visit Diagnoses Not on filedocumented in this encounter Additional Health Concerns Assessment Noted Time PHQ-9 Depression Total Score: 16 05/28/2021 2:58 PM CD T documented as of this encounter Care Teams Dermatologist Relationship Specialty Start Date End Date Aydee Burton, PCP - General Nurse Practitioner - 05/17/21 WHEELAGE CLERK INDUSTRIAL ELECTRICAL TECHNICIAN Family [address] [place] [id number] Aydee Burton, Assigned PCP 04/28/21 WHEELAGE CLERK [facility] [address] [place], [place] [address] documented as of this encounter
--- OUTSIDE RECORDS SUMMARY | 2022-09-21 04:18 | XMS_ITS | Encounter Summary ---
:1980 Author Organization [place] Address [address] [place] [address] Care Team Providers Name Role Phone Aydee Burton APRN, CNP Primary Care Provider [phone] Aydee Burton APRN TOE LINING CLOSER Unavailable [phone] Reason for Visit Diagnostic Imaging Ultrasound (Routine) - Closed Specialty Diagnoses / Procedures Referred By Contact Refer red To Contact Diagnoses Pelvic pain in female Aydee Burton, Procedures US Pelvic Complete with Transvaginal ELADIO TOE LINING CLOSER [address] [place] [address] Referral ID Status Reason Start Date Expiration Date Visits Requ ested Visits Authorized [id number] Closed 06/11/2021 06/11/2022 1 1 Encounter Details Date Type Department Care Team Description 06/15/2021 Ancillary [facility] Aydee Burton naveen n in Procedure Clinic [place] ELADIO Mendez female [place] TOE LINING CLOSER [address] [place] [address] [phone] Social History Tobacco Use Types Packs/Day Years [...] How often do you attend religion or yarsanism services? 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/2021 7:53 PM DATA RECOVERY PLANNER COVID-19 Exposure Response Date Recorded In the last month, have you been in contact with No / Unsure 06/15/2021 8:06 AM CDT someone who was confirmed or suspected to have Coronavirus / COVID-19? documented as of this encounter Miscellaneous Notes Result Encounter Note - Aydee Burton, PRE SALES SYSTEMS ENGINEER TOE LINING CLOSER - 06/15/2021 8:20 AM CDT Dear Marta, Here is a summary of your recent test results: Great news your pelvic ultrasound is normal. Lets continue to watch your symptoms and if persisting I would encourage you to see OBGYN. For additional lab test information, [email or web address] is an excellent reference. In addition, here is a list of due or overdue Health Maintenance reminders: There are no preventive care reminders to display for this patient. Please call us at [phone] (or use [employer]) to address the above recommendations if needed. Thank you for choosing [facility]. It was an honor and a privilege to participate in your care. Healthy regards, TARA Spivey [facility] documented in this encounter Plan of Treatment Upcoming Encounters Date Type Specialty Care Team Description 09/26/2022 Appointment Speech Therapy Obdulio Barrera MD 420 [facility] 276 [place], [place] [address] Anabel Chew, LEAD CUSTOMER SERVICE REPRESENTATIVE [facility] 516 [facility] 396 [place], [place] [address] 09/27/2022 Therapy Visit Physical Therapy Luisana Watkins, PT [address] [place] [address] 09/29/2022 Virtual Visit Pain & Palliative Marilia Deluna, [facility] PhD [address] [place], [place] [address] 09/30/2022 Office Visit Family Practice Aydee Burton APRN TOE LINING CLOSER [address] [place] [address] 10/03/2022 Therapy Visit Physical Therapy Una Reardon, PT [address] [place] [phone] 10/10/2022 Hospital Encounter Surgery Lesly Celaya MD [address] [place], [place] [address] 10/10/2022 Office Visit Surgery Lesly Celaya MD [address] [place], [place] [address] Ninoska Flowers, PA-C [address] [place], [place] [address] 10/10/2022 Surgery Surgery Lesly Celaya, EXCISION, MASSES - MD back, abdomen, [address] extremity [place], [place] [phone] 10/11/2022 Virtual Visit Pharm Clari Stoll, [facility] [address] [phone] [place], [place] [address] 10/14/2022 Appointment Speech Therapy Anabel Chew, LEAD CUSTOMER SERVICE REPRESENTATIVE [address] [address]38[address] 10/21/2022 Office Visit Pulmonology Obdulio Barrera MD [address] [address] 10/25/2022 PRE VISIT ENT Charo Burton MD Previsit [address] [place] [address]2565 10/25/2022 Office Visit Charo Carter MD [address] [place] [address]6585 10/25/2022 Office Visit ENT Provider, Ent Dysphonia Grinding Machine Operator Portable 10/28/2022 Appointment Speech Therapy Anabel Chew, LEAD CUSTOMER SERVICE REPRESENTATIVE [address] 667045 11/17/2022 Appointment Speech Therapy Anabel Chew, LEAD CUSTOMER SERVICE REPRESENTATIVE [address] 456865 12/23/2022 Office Visit Neurology Colby Yeung MD [address] [place] [address] Scheduled Procedures Name Priority Associated Diagnoses Date/Time EXCISION, MASS, TORSO Lipoma of skin and subcuta neous 10/10/2022 7:30 AM DATA RECOVERY PLANNER tissue documented as of this encounter Procedures Procedure Name Priority Date/Time Associated Comments Diagnosis US PELVIC Routine 06/15/2021 8:39 AM Pelvic pain in Results for this TRANSABDOMINAL AND CDT female procedure are in TRANSVAGINAL the results section. documented in this encounter Results US Pelvic Complete with Transvaginal (06/15/2021 8:39 AM CDT) Anatomical Region Laterality Modality Abdomen/Pelvis Ultrasound Specimen (Source) Anatomical Location Collection Method / Collectio n Time Received Time / Laterality Volume Narrative 06/15/2021 9:58 AM CDT [facility] ULTRASOUND - PELVIC MAINTENANCE MAN- Transabdominal and Transvaginal ?? Referring MD: Aydee Burton ? CLINICAL INFORMATION ?? Indications for ultrasound: Pain - Pelvic pain ?? LMP: 08 Jun 2021 ?Hormones: none ?? Measurements: Uterus: ??11.07 x 7.20 x 6.48 cm ?? Position is anteverted. ??Contour is smo oth/regular. ?? Endo cav: 9.49 mm ? Smooth/regula r/wnl ?? Right ovary: 3.19 x 4.12 x 2.11 cm ??Wnl Left ovary: ?? 2.24 x 2.18 x 2.03 cm Wnl ?? Cul de sac: no free fluid ?? Complete pelvic ultrasound using realtim e transabdominal and transvaginal scanning . Bladder appears normal. Normal uterus and bilateral adnexa. Normal pelvic ultrasound study. Katharina Moreno MD Obstetrics and Gynecology [facility] Aydee Burton PRE SALES SYSTEMS ENGINEER TOE LINING CLOSER IMG US ORDERABLES documented in this encounter Visit Diagnoses Diagnosis Pelvic pain in female Unspecified symptom associated with fema le genital organs Lipoma of skin and subcutaneous tissue Lipoma of other skin and subcutaneous ti ssue documented in this encounter Additional Health Concerns Assessment Noted Time PHQ-9 Depression Total Score: 17 06/12/2021 7:02 AM CD T documented as of this encounter Care Teams Motion Study Engineer Relationship Specialty Start Date End Date Aydee Burton, PCP - General Nurse Practitioner - 05/17/21 PRE SALES SYSTEMS ENGINEERValerio KOO Family [address] [place] [address] [phone] Aydee Burton, Assigned PCP 04/28/21 PRE SALES SYSTEMS ENGINEER TOE LINING CLOSER [address] [place], [place] [address] documented as of this encounter
--- OUTSIDE RECORDS SUMMARY | 2022-09-21 04:18 | XMS_ITS | Encounter Summary ---
:1980 Author Organization [place] Address [address] [place] [address] Care Team Providers Name Role Phone Aydee Burton APRN, CNP Primary Care Provider [phone] Aydee Burton APRN, CNP Unavailable [phone] Reason for Referral Consultation (Routine) - Closed Specialty Diagnoses / Procedures Referred By Contact Refer red To Contact fruit sorter Diagnoses Pelvic pain in female Rv Family Practice Ri Buckle And Button Maker [address] [facility] [address] [place] [address] [place] [address] [place] [address] [place] [address] Phone: Fax: Referral ID Status Reason Start Date Expiration Date Visits Requ ested Visits Authorized [id number] Closed 06/16/2021 06/16/2022 1 1 Encounter Details Date Type Department Care Team Description 06/16/2021 Orders Only [facility] Jasson Neal, Pelv ic pain in female Clinic Kent RN (Primary Dx) [address] [facility] [place] [address] Social History Tobacco Use Types Packs/Day Years [...] er 08/05/2021 How often do you attend christianity or mandaen services? Never 08/05/2021 Do you belong to any clubs or organizations such as christianity N o 08/05/2021 groups, unions, fraternal or [...] at Date Recorded Female 11/09/2021 7:53 PM JACQUARD CARD LACER COVID-19 Exposure Response Date Recorded In the last month, have you been in contact with No / Unsure 06/15/2021 8:06 AM CDT someone who was confirmed or suspected to have Coronavirus / COVID-19? documented as of this encounter Plan of Treatment Upcoming Encounters Date Type Specialty Care Team Description 09/26/2022 Appointment Speech Therapy Obdulio Barrera MD 420 [facility] 276 [place] [address] Anabel Chew SLP [facility] [address] [facility] 396 [place], [place] [address] 09/27/2022 Therapy Visit Physical Therapy Liusana Watkins, PT [address] [place] [address] 09/29/2022 Virtual Visit Pain & Palliative Marilia Deluna, [facility] PhD [address] [place], [place] [address] 09/30/2022 Office Visit Family Practice Aydee Burton, CERTIFIED MORTICIAN TRANSCRIPTION SPECIALIST [address] [place] [address] 10/03/2022 Therapy Visit Physical Therapy Una Reardon, PT [address] [place] [address] 10/10/2022 Hospital Encounter Surgery Lesly Celaya MD [address] [place] [address] 10/10/2022 Office Visit Surgery Lesly Celaya MD [address] [place] [address] Ninoska Flowers, PA-Ynes [address] [place], [place] [address] 10/10/2022 Surgery Surgery Lesly Celaya, EXCISION, MASSES - MD back, abdomen, [address] [place] [address] 10/11/2022 Virtual Visit Clari Su, [facility] [address] [phone] [place], [place] [phone] 10/14/2022 Appointment Speech Therapy Anabel Chew, CENTRAL STATION OPERATOR [facility] [address] [facility] 396 [place] [address] 10/21/2022 Office Visit Pulmonology Obdulio Barrera MD 420 [facility] 276 [place], [place] [address] 10/25/2022 PRE VISIT ENT Charo Burton MD Previsit [address] [place] [address]75 10/25/2022 Office Visit ENT Charo Burton MD [address] [place] [phone] 10/25/2022 Office Visit ENT Provider, Jeannette Ent Dysphonia Services Host 10/28/2022 Appointment Speech Therapy Anabel Chew, CENTRAL STATION OPERATOR [address] [place] [address] 11/17/2022 Appointment Speech Therapy Anabel Chew, CENTRAL STATION OPERATOR [address] [place], [place] [address] 12/23/2022 Office Visit Neurology Colby Yeung MD [address] [place] [address] Scheduled Procedures Name Priority Associated Diagnoses Date/Time EXCISION, MASS, TORSO Lipoma of skin and subcuta neous 10/10/2022 7:30 AM JACQUARD CARD LACER tissue Scheduled Referrals Name Type Priority Associated Diagnoses Order S chedule Buckle And Button Maker Referral Referral Routine Pelvic pain in female Exp ected: 06/16/2021 (Approximate), Expires: 06/16/2022 documented as of this encounter Visit Diagnoses Diagnosis Pelvic pain in female - Primary Unspecified symptom associated with fema le genital organs Lipoma of skin and subcutaneous tissue Lipoma of other skin and subcutaneous ti ssue documented in this encounter Additional Health Concerns Assessment Noted Time PHQ-9 Depression Total Score: 17 06/12/2021 7:02 AM CD T documented as of this encounter Care Teams Product Development Intern Relationship Specialty Start Date End Date Aydee Burton, PCP - General Nurse Practitioner - 05/17/21 CERTIFIED MORTICIAN [facility] [address] [place] [phone] Aydee Burton, Assigned PCP 04/28/21 CERTIFIED MORTICIAN [address] [address]23[address] documented as of this encounter
--- OUTSIDE RECORDS SUMMARY | 2022-09-21 04:18 | XMS_ITS | Encounter Summary ---
:1980 Author Organization [place] Address [address] [facility] [place] [address] Care Team Providers Name Role Phone Aydee Burton APRN, CNP Primary Care Provider [phone] Aydee Burton APRN [facility] Unavailable [phone] Reason for Visit Rehab Therapy Physical Therapy (Routine) - Closed Specialty Diagnoses / Procedures Referred By Contact Refer red To Contact Diagnoses Neck pain Aydee Burton APRN [address] [phone] Referral ID Status Reason Start Date Expiration Date Visits Requ ested Visits Authorized [id number] Closed 05/21/2021 05/21/2022 1 1 Encounter Details Date Type Department Care Team Description 06/03/2021 Therapy Visit [facility] Aydee Burton Ch, APRN [address] [address] Neck pain [place] [address] [place] [id number] [place] [phone] Social History Tobacco Use Types [...] How often do you attend tenriism or latter day services? 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 documented as of this encounter Progress Notes Margarito Garcia, PT - 06/03/2021 8:40 AM CDT Physical Therapy Initial Evaluation Subjective: Onset of bilateral cervical pain L>R radiating into the left shoulder possibly due to a fall at work on 12-26-20. Pt also hurt her left elbow in the fall. Pt has had constant pain since. Pt referred to physical therapy on 05-21-21. The history is provided by the patient. No automotive parts interpreter was used. Patient Health History Marta Hill being seen for neck pain. Problem began: 12/26/2020. Problem occurred: possibly a fall at work Pain is reported as 6/10 on pain scale. General health as reported by patient is fair. Pertinent medical history includes: changes in bowel/bladder, depression, history of fractures, highblood pressure, mental illness, migraines/headaches, numbness/tingling, pain at night/rest, weaknessand other. Other medical history details: occipital neuralgia and cervialgenic headaches. Medical allergies: other. Other medical allergies details: amoxicillian. Surgeries include: Orthopedic surgery and other. Other surgery history details: sinus, ablasion, tubal ligation, brest augmentation. Current medications: Anti-depressants, anti-inflammatory and pain medication. Other medications details: infection medication, anti anxiety, vitamins. 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 Primary job tasks include: Computer work, lifting/carrying, prolonged standing, pushing/pulling, repetitive tasks and other. Other job/home tasks details: climbing on stool. Therapist Generated HPI Evaluation Type of problem: Cervical spine. This is a chronic condition. Condition occurred with: A fall/slip. Where condition occurred: at work. Patient reports pain: Cervical left side and cervical right side. Pain is described as sharp and aching and is constant. Pain radiates to: Head and shoulder left. Pain is worse in the P.M.. Since onset symptoms are unchanged. Associated symptoms: Loss of motion/stiffness, loss of strength and headache. Symptoms are exacerbated by looking up or down, rotating head, sitting, carrying, lifting and driving and relieved by heat and NSAID's. Special tests included: X-ray (see report). Previous treatment includes chiropractic. Restrictions due to condition include: Working in normal job without restrictions. Barriers include: None as reported by patient. Objective: Standing Alignment: Cervical/thoracic deviations alignment: forward head and shoulder posture. Flexibility/Screens: Upper Extremity: Decreased left upper extremity flexibility at: Pectoralis Major Decreased right upper extremity flexibility present at: Pectoralis Major Spine: Decreased left spine flexibility: Upper Trap and Levator Decreased right spine flexibility: Upper Trap and Levator Cervical/Thoracic Evaluation AROM: AROM Cervical: Flexion: Minimal loss with pain Extension: Minimal loss Rotation: Left: minimal loss with pain Right: moderate loss Side Bend: Left: moderate loss Right: Moderate loss Strength: weak scapular stabilizers Headaches: cervical Cervical Myotomes: C6 (Biceps): Left: 4 C7 (Triceps): Left: 4 C8 (Thumb Ext): Left: 5 T1 (Intrinsics): Left: 5 DTR's: Cervical dtr's: NA secondary to left elbow injury. Cervical Dermatomes: C6 left: Hypo-light touch C7 left: Hypo-light touch C8 left: Hypo-light touch Cervical Palpation: Tenderness present at Left: Upper Trap; Levator and Erector Spinae Tenderness present at Right: Erector Spinae General ROS Assessment/Plan: Patient is a 41 year old female with cervical complaints. Patient has the following significant findings with corresponding treatment plan. Diagnosis 1: Neck pain Pain - hot/cold therapy, US, self management, education and home program Decreased ROM/flexibility - therapeutic exercise, therapeutic activity and home program Decreased strength - therapeutic exercise, therapeutic activities and home program Therapy Evaluation Codes: 1) History comprised of: Personal factors that impact the plan of care: None. Comorbidity factors that impact the plan of care are: Bowel/bladder changes, Depression, High blood pressure, Migraines/headaches, Numbness/tingling, Pain at night/rest and Weakness. Medications impacting care: Anti-depressant, Anti-inflammatory and Pain. 2) Examination of Body Systems comprised of: Body structures and functions that impact the plan of care: Cervical spine. Activity limitations that impact the plan of care are: Driving, Dressing, Reading/Computer work and Sleeping. 3) Clinical presentation characteristics are: Stable/Uncomplicated. 4) Decision-Making Low complexity using standardized patient assessment instrument and/or measureable assessment of functional outcome. Cumulative Therapy Evaluation is: Low complexity. Previous and current functional limitations: (See Goal Flow Sheet for this information) Short term and alf goals: (See Goal Flow Sheet for this [...] 1 X week, once daily Duration: for 6 weeks Discharge Plan: Achieve all LTG. Independent in home treatment program. Reach maximal therapeutic benefit. Please refer to the daily flowsheet for treatment today, total treatment time and time spent performing 1:1 timed codes. documented in this encounter Plan of Treatment Upcoming Encounters Date Type Specialty Care Team Description 09/26/2022 Appointment Speech Therapy Obdulio Barrera MD [address] [facility] [address] [place], [place] [address] Anabel Chew, DOUGH SHEETER [address] [place], [place] [address] 09/27/2022 Therapy Visit Physical Therapy Luisana Watkins, PT [address] [place] [address] 09/29/2022 Virtual Visit Pain & Palliative Marilia Deluna, Care PhD [address] [place] [address] 09/30/2022 Office Visit Family Practice Aydee Burton, FAMILY SPECIALIST MICROBIOLOGY LAB MANAGER [address] [place] [address] [phone] 10/03/2022 Therapy Visit Physical Therapy Una Reardon, PT [address] [place] [address] 10/10/2022 Hospital Encounter Surgery Lesly Celaya MD [address] [place], [place] [address] 10/10/2022 Office Visit Surgery Lesly Celaya MD [address] [place], [place] [address] Ninoska Flowers PA-C [address] [place] [address] 10/10/2022 Surgery Surgery Lesly Celaya, EXCISION, MASSES - MD back, abdomen, [address] [place] [address] 10/11/2022 Virtual Visit Clari Su, [facility] [phone] [place] [address] 10/14/2022 Appointment Speech Therapy Anabel Chew, DOUGH SHEETER [address] [phone] 10/21/2022 Office Visit Pulmonology Obdulio Barrera MD [address] [phone] 10/25/2022 PRE VISIT ENT Charo Burton MD Previsit [address] [place], [place] [address] 10/25/2022 Office Visit ENT Charo Burton MD [address] [place] [phone] 10/25/2022 Office Visit ENT Provider, Ent Dysphonia Polystyrene Bead Molder 10/28/2022 Appointment Speech Therapy Anabel Chew, DOUGH SHEETER [address] 887[address] 11/17/2022 Appointment Speech Therapy Anabel Chew, DOUGH SHEETER [address] [address] 12/23/2022 Office Visit Neurology Colby Yeung MD [address] [place], [place] [address] Scheduled Procedures Name Priority Associated Diagnoses Date/Time EXCISION, MASS, TORSO Lipoma of skin and subcuta neous 10/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 EA 15 MIN CDT documented in this encounter Visit Diagnoses Diagnosis Neck pain Cervicalgia Lipoma of skin and subcutaneous tissue Lipoma of other skin and subcutaneous ti ssue documented in this encounter Additional Health Concerns Assessment Noted Time PHQ-9 Depression Total Score: 16 05/28/2021 2:58 PM CD T documented as of this encounter Care Teams Manager Bridge Relationship Specialty Start Date End Date Aydee Burton, PCP - General Nurse Practitioner - 05/17/21 FAMILY SPECIALIST MICROBIOLOGY LAB MANAGER [facility] [address] [place] [phone] Aydee Burton, Assigned PCP 04/28/21 FAMILY SPECIALIST MICROBIOLOGY LAB MANAGER [address] [place] [address] [phone] documented as of this encounter
--- OUTSIDE RECORDS SUMMARY | 2022-09-21 04:18 | XMS_ITS | Encounter Summary ---
:1980 Author Organization [place] Address [address] [facility] [place] [address] Care Team Providers Name Role Phone Aydee Burton APRN [facility] Primary Care Provider [phone] Aydee Burton APRN [facility] Unavailable [phone] Reason for Visit Rehab Therapy Physical Therapy (Routine) - Closed Specialty Diagnoses / Procedures Referred By Contact Refer red To Contact Diagnoses Neck pain Aydee Burton APRN [address] [phone] Referral ID Status Reason Start Date Expiration Date Visits Requ ested Visits Authorized [id number] Closed 05/21/2021 05/21/2022 1 1 Encounter Details Date Type Department Care Team Description 06/17/2021 Therapy Visit [facility] Aydee Burton Ch, APRN [address] [phone] Neck pain Rehabilitation Services Davy Ramos, PT [facility] [address] [place], [place] [phone] [place] [phone] [place] [phone] Social History Tobacco Use Types Packs/Day [...] How often do you attend rastafarian or voodoo services? 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 documented as of this encounter Plan of Treatment Upcoming Encounters Date Type Specialty Care Team Description 09/26/2022 Appointment Speech Therapy Obdulio Barrera MD [address] [phone] Anabel Chew ACOUSTIC INTELLIGENCE SPECIALIST [address] [facility] [address] [place] [address] 09/27/2022 Therapy Visit Physical Therapy Luisana Watkins, PT [address] [place] [address] 09/29/2022 Virtual Visit Pain & Palliative Marilia Deluna, [facility] PhD [address] [place], [place] [phone] 09/30/2022 Office Visit Family Practice Aydee Burton, HAULING CONTRACTOR ELECTRONIC TRAIN CONTROL TECHNICIAN [address] [place], [place] [address] 10/03/2022 Therapy Visit Physical Therapy Una Reardon, PT [address] [place] [phone] 10/10/2022 Hospital Encounter Surgery Lesly Celaya MD [address] [place], [place] [phone] 10/10/2022 Office Visit Surgery Lesly Celaya MD [address] [place], [place] [phone] Ninoska Flowers, FLORES-C [address] [place] [address] 10/10/2022 Surgery Surgery Lesly Celaya, EXCISION, MASSES - MD back, abdomen, [address] right lower [facility] [place] [address] 10/11/2022 Virtual Visit Clari Su, [facility] [address] [facility] [address] [place], [place] [address] 10/14/2022 Appointment Speech Therapy Anabel Chew, ACOUSTIC INTELLIGENCE SPECIALIST [address] [place] [address] 10/21/2022 Office Visit Pulmonology Obdulio Barrera MD [address] [facility] [address] [place] [address] 10/25/2022 PRE VISIT ENT Charo Burton MD Previsit [address] [place] [address] 10/25/2022 Office Visit ENT Charo Burotn MD [address] [place] [address] [phone] 10/25/2022 Office Visit ENT Provider, Ent Dysphonia Collateral Specialist 10/28/2022 Appointment Speech Therapy Anabel Chew, ACOUSTIC INTELLIGENCE SPECIALIST [address] [address] 11/17/2022 Appointment Speech Therapy Anabel Chew, ACOUSTIC INTELLIGENCE SPECIALIST [address] [address] 12/23/2022 Office Visit Neurology Colby Yeung MD [address] [place] [phone] Scheduled Procedures Name Priority Associated Diagnoses Date/Time EXCISION, MASS, TORSO Lipoma of skin and subcuta neous 10/10/2022 7:30 AM PLANNER INTERN tissue documented as of this encounter Procedures Procedure Name Priority Date/Time Associated Diagnosis Comme nts RI MANUAL THERAPY, EA 15 Routine 06/17/2021 12:31 PM Neck pain MIN CDT RI THERAPEUTIC Routine 06/17/2021 12:31 PM Neck pain EXERCISES. EA 15 MIN CDT RI ULTRASOUND THERAPY, Routine 06/17/2021 12:31 PM Neck pain EA 15 MIN CDT documented in this encounter Visit Diagnoses Diagnosis Neck pain Cervicalgia Lipoma of skin and subcutaneous tissue Lipoma of other skin and subcutaneous ti ssue documented in this encounter Additional Health Concerns Assessment Noted Time PHQ-9 Depression Total Score: 17 06/12/2021 7:02 AM CD T documented as of this encounter Care Teams Uke Operator Relationship Specialty Start Date End Date Aydee Burton, PCP - General Nurse Practitioner - 05/17/21 HAULING CONTRACTOR ELECTRONIC TRAIN CONTROL TECHNICIAN [address] [phone] Aydee Burton, Assigned PCP 04/28/21 HAULING CONTRACTOR ELECTRONIC TRAIN CONTROL TECHNICIAN [address] [place] [address] [phone] documented as of this encounter
--- OUTSIDE RECORDS SUMMARY | 2022-09-21 04:18 | XMS_ITS | Encounter Summary ---
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 Practice Aydee Burton, ELADIO MOVING WORKER [address] [place] [address] [phone] 10/03/2022 Therapy Visit Physical Therapy Una Reardon, PT [address] [place] [phone] 10/10/2022 Hospital Encounter Surgery Lesly Celaya MD [address] [place], [place] [address] 10/10/2022 Office Visit Surgery Lesly Celaya MD [address] [place] [address] Ninoska Flowers PA-C [address] [facility] [address] [place], [place] [phone] 10/10/2022 Surgery Surgery Lesly Celaya, EXCISION, MASSES - MD back, abdomen, [address] extremity [place], [place] [address] 10/11/2022 Virtual Visit Clari Su, [facility] [address] [facility] [address] [place] [address] 10/14/2022 Appointment Speech Therapy Anabel Chew, ORAL SURGERY PHYSICIAN [address] [phone] 10/21/2022 Office Visit Pulmonology Obduloi Barrera MD [address] [phone] 10/25/2022 PRE VISIT ENT Charo Burton MD Previsit [address] [place], [place] 456695 10/25/2022 Office Visit ENT Charo Burton MD [address] [place] [address] [phone] 10/25/2022 Office Visit ENT Provider, Ent Dysphonia Field Crop Technical Officer 10/28/2022 Appointment Speech Therapy Anabel Chew SLP [address] [phone] 11/17/2022 Appointment Speech Therapy Anabel Chew SLP [address] [phone] 12/23/2022 Office Visit Neurology Colby Yeung MD [address] [phone] Scheduled Procedures Name Priority Associated Diagnoses Date/Time EXCISION, MASS, TORSO Lipoma of skin and subcuta neous 10/10/2022 7:30 AM PROTEIN SPECIALIST tissue Scheduled Referrals Name Type Priority Associated Diagnoses Order S chedule SLEEP EVALUATION & Referral Routine Gasping for breath Exp ected: 06/13/2021 MANAGEMENT REFERRAL - (Appro ximate), ADULT - Expires: 2021 documented as of this encounter Procedures Procedure Name Priority Date/Time Associated Diagnosis Comme nts HCG QUALITATIVE Routine 06/11/2021 11:50 Pelvic pain in female Results for this URINE AM CDT procedure are i n the results section. URINE MICROSCOPIC Routine 06/11/2021 11:50 Pelvic pain in fema le Results for this AM CDT procedure are i n the results section. UA MACROSCOPIC WITH Routine 06/11/2021 11:50 Pelvic pain in fe male Results for this REFLEX TO MICRO AND AM CDT procedur e are in CULTURE the results section. VITAMIN D DEFICIENCY Routine 06/11/2021 11:50 Vitamin D defici ency Results for this SCREENING AM CDT procedure are i n the results section. LIPID REFLEX TO Routine 06/11/2021 11:50 Hyperlipidemia LDL Re sults for this DIRECT LDL PANEL AM CDT goal <130 procedure a re in the results section. HEPATIC FUNCTION Routine 06/11/2021 11:50 Elevated LFTs Result s for this PANEL AM CDT procedure are i n the results section. GGT Routine 06/11/2021 11:50 Elevated LFTs Results fo r this AM CDT procedure are i n the results section. HPV HOLD (LAB ONLY) Routine 06/11/2021 11:07 Screening for Res ults for this AM CDT malignant neoplasm of proced ure are in cervix the results section. GYNECOLOGIC CYTOLOGY Routine 06/11/2021 11:07 Screening for Re sults for this AM CDT malignant neoplasm of proced ure are in cervix the results section. HPV HIGH RISK TYPES Routine 06/11/2021 11:07 Screening for Res ults for this DNA CERVICAL AM CDT malignant neoplasm of proced ure are in cervix the results section. documented in this encounter Results US Pelvic Complete with Transvaginal (06/15/2021 8:39 AM CDT) Anatomical Region Laterality Modality Abdomen/Pelvis Ultrasound Specimen (Source) Anatomical Location Collection Method / Collectio n Time Received Time / Laterality Volume Narrative 06/15/2021 9:58 AM CDT [facility] ULTRASOUND - PELVIC QUALITY CONSULTANT- Transabdominal and Transvaginal ?? Referring MD: Aydee [...] study. Katharina Moreno MD Obstetrics and Gynecology [facility] Aydee Burton MANAGER FACILITY MOVING WORKER IMG US ORDERABLES XR Chest 2 Views (06/11/2021 12:02 PM CDT) Anatomical Region Laterality Modality Chest Computed Radiography Specimen (Source) Anatomical Location Collection Method / Collectio n Time Received Time / Laterality Volume Impressions 06/11/2021 12:52 PM CDT IMPRESSION: No radiographic evidence of acute chest abnormality. JAH CLINE MD SYSTEM ID: ??[id number] Narrative 06/11/2021 12:52 PM CDT CHEST TWO VIEWS 06/11/2021 12:02 PM HISTORY: Night sweats. COMPARISON: None. FINDINGS: Heart size and pulmonary vascu larity are within normal limits. The lungs are clear. No pneumoth orax or pleural effusion. Procedure Note Jah Cline MD - 06/11/2021Forma tting of this note might be different from the original. CHEST TWO VIEWS 06/11/2021 12:02 PM HISTORY: Night sweats. COMPARISON: None. FINDINGS: Heart size and pulmonary vascu larity are within normal limits. The lungs are clear. No pneumoth orax or pleural effusion. IMPRESSION: No radiographic evidence of acute chest abnormality. JAH CLINE MD SYSTEM ID: [id number] Aydee Burton APRN, CNP IMG DIAGNOSTIC IMAGING O RDERABLES (ABNORMAL) Urine Microscopic (06/11/2021 11:50 AM CDT) Patholo gist Method Time Signature Bacteria Urine Moderate (A) None Seen NIKOLAS 06/11/2021 [facility] RY /HPF 12:05 PM CDT RBC Urine 0-2 0-2 /HPF NIKOLAS 06/11/2021 [facility] /HPF 12:05 PM CDT WBC Urine None Seen 0-5 /HPF NIKOLAS 06/11/2021 [facility] /HPF 12:05 PM CDT Squamous Few (A) None Seen NIKOLAS 06/11/2021 [facility] Epithelials /LPF 12:05 PM CDT Urine Specimen Anatomical Collection Method Collection Time Receive d Time (Source) Location / / Volume Laterality Urine MID-STREAM URINE Non-blood 06/11/2021 11:50 021 SPECIMEN / Unknown Collection / AM CDT 11:50 AM CDT Unknown Narrative [facility] - 06/11/2021 12:05 PM CDT Urine Culture not indicated Aydee Burton APRN, CNP LAB - URINE ORDERABLES Performing Organization Address City/State/ZIP Code Phon e Number RV LABORATORY [facility] [phone] [place] [address] [place] [address] S. E. Lab (no room number, 1st floor of clinic) [place] [address], [facility] [address] [place] [address] S. E. Lab (no room number, 1st floor of clinic) (ABNORMAL) Lipid panel reflex to direct LDL Fasting (06/11/2021 11:50 AM CDT) athologist Signature Cholesterol 214 (H) <200 mg/dL 06/12/2021 [facility] 8:48 AM CDT Comment: Age 0-19 years Desirable: <170 mg/dL Borderline high: ??170-199 mg/dl High: ?>199 mg/dl Age 20 years and older Desirable: <200 mg/dL Triglycerides 149 <150 mg/dL 06/12/2021 8:48 AM CDT [facility] Comment: 0-9 years: Normal: ?Less than 75 mg/dL Borderline high: ??75-99 mg/dL High: ? Greater than or equal to 100 mg/dL 0-19 years: Normal: ?Less than 90 mg/dL Borderline high: ??90-129 mg/dL High: ? Greater than or equal to 130 mg/dL 20 years and older: Normal: ?Less than 150 mg/dL Borderline high: ??150-199 mg/dL High: ? 200-499 mg/dL Very high: ?? Greater than or equal to 5 00 mg/dL Direct Measure HDL 53 >=50 mg/dL 06/12/2021 8:48 AM C DT [facility] Comment: 0-19 years: ? Greater than or equal to 45 mg/dL Low: Less than 40 mg/dL Borderline low: 40-44 mg/dL 20 years and older: Female: Greater than or equal to 50 mg/d L Male: ?? Greater than or equal to 40 mg/ dL LDL Cholesterol 131 (H) <=100 mg/dL 06/12/2021 8:48 AM CDT [facility] Calculated Comment: Age 0-19 years: Desirable: 0-110 mg/dL Borderline high: 110-129 mg/dL High: >= 130 mg/dL Age 20 years and older: Desirable: <100mg/dL Above desirable: 100-129 mg/dL Borderline high: 130-159 mg/dL High: 160-189 mg/dL Very high: >= 190 mg/dL Non HDL Cholesterol 161 (H) <130 mg/dL 06/12/2021 8:48 AM CDT [facility] Comment: 0-19 years: Desirable: ? Less than 120 mg/ dL Borderline high: ?? 120-144 mg/dL High: ? Greater th an or equal to 145 mg/dL 20 years and older: Desirable: ? 130 mg/dL Above Desirable: 130-159 mg/dL Borderline high: ?? 160-189 mg/dL High: ? 190-219 mg/dL Very high: ?? Greater than or equal to 2 20 mg/dL Patient Fasting > 8hrs? No 06/12/2021 8:48 AM CDT [facility] Specimen Anatomical Collection Method / Collection Time Recei edil Time (Source) Location / Volume Laterality Blood STRUCTURE OF RIGHT Venipuncture / 06/11/2021 11:50 UPPER LIMB / Unknown AM CDT 11:50 AM CDT Unknown Aydee Burton APRN MOVING WORKER LAB - BLOOD ORDERABLES Performing Organization Address City/State/[facility] Code Phon e Number OX LABORATORY [place], [place] [phone] [place] [facility] [phone] [place] [address] Lab (no room number, 1st floor of clinic) OX LABORATORY [place], [place] [phone] [place] [phone] [address] Lab (no room number, 1st floor of clinic) Vitamin D Deficiency (06/11/2021 11:50 AM CDT) athologist Signature Vitamin D, 32 20 - 75 06/13/2021 [facility] Total ug/L 10:05 AM CDT SPECIALTY CORE (25-Hydroxy) Specimen Anatomical Collection Method / Collection Time Recei edil Time (Source) Location / Volume Laterality Blood STRUCTURE OF RIGHT Venipuncture / 06/11/2021 11:50 UPPER LIMB / Unknown AM CDT 11:50 AM CDT Unknown Narrative [facility] SPECIALTY CORE - 06/13/2021 10:0 5 AM CDT Season, race, dietary intake, and treatment affect the concentration of 06-eqpzrom-Fmomsow D. Values may decrease during winter months [...] Address City/State/ZIP Code Phon e Number [place] [address] CORE/PROT/ENDO Core/Prot/Endo [address] [facility], Room 3-580 [facility] SPECIALTY CORE [facility] [place] Lab [phone], [facility] 420 [facility], Room L271-5 (ABNORMAL) GGT (06/11/2021 11:50 AM CDT) athologist Signature GGT 109 (H) 0 - 40 U/L 06/12/2021 [facility] 8:48 AM CDT Specimen Anatomical Collection Method / Collection Time Recei edil Time (Source) Location / Volume Laterality Blood STRUCTURE OF RIGHT Venipuncture / 06/11/2021 11:50 UPPER LIMB / Unknown AM CDT 11:50 AM CDT Unknown Aydee Burton APRN, CNP LAB - BLOOD ORDERABLES Performing Organization Address City/[facility] Code Phon e Number OX LABORATORY [place], [place] [phone] [place] [facility] [phone] [place] [address] Lab (no room number, 1st floor of clinic) OX [place]ORAT[place], [place] [phone] [facility] [phone] [address] Lab (no room number, 1st floor of clinic) Hepatic panel (Albumin, ALT, AST, Bili, Alk Phos, TP) (06/11/2021 11:50 AM CDT) athologist Signature Bilirubin Total 0.4 0.2 - 1.3 06/12/2021 [facility] mg/dL 8:48 AM CDT Bilirubin Direct 0.1 0.0 - 0.2 06/12/2021 OX [facility] Y mg/dL 8:48 AM CDT Protein Total 7.5 6.8 - 8.8 06/12/2021 [facility] g/dL 8:48 AM CDT Albumin 4.0 3.4 - 5.0 06/12/2021 [facility] g/dL 8:48 AM CDT Alkaline 91 40 - 150 06/12/2021 [facility] Phosphatase U/L 8:48 AM CDT AST 20 0 - 45 U/L 06/12/2021 [facility] 8:48 AM CDT ALT 35 0 - 50 U/L 06/12/2021 [facility] 8:48 AM CDT Specimen Anatomical Collection Method / Collection Time Recei edil Time (Source) Location / Volume Laterality Blood STRUCTURE OF RIGHT Venipuncture / 06/11/2021 11:50 UPPER LIMB / Unknown AM CDT 11:50 AM CDT Unknown Aydee Burton MANAGER FACILITY MOVING WORKER LAB - BLOOD ORDERABLES Performing Organization Address [facility]/State/ZIP Code Phon e Number OX LABORATORY [place], [place] [phone] [place] [facility] [phone] [place] [address] Lab (no room number, 1st floor of clinic) OX LABORATORY [place], [place] [phone] [facility] [address] Lab (no room number, 1st floor of clinic) HCG Qual, Urine ([id number]) (06/11/2021 11:50 AM CDT) [facility] Method Time Signature hCG Urine Negative Negative NIKOLAS 06/11/2021 [facility] Qualitative 12:01 PM CDT Comment: This test is for screening purp oses. Results should be interpreted along with the clinical picture. Confirmation testing is available if warranted by ordering [id number], HCG Quantitative . Specimen Anatomical Collection Method Collection Time Receive d Time (Source) Location / / Volume Laterality Urine MID-STREAM URINE Non-blood 06/11/2021 11:50 021 SPECIMEN / Unknown Collection / AM CDT 11:50 AM CDT Unknown Aydee Burton APRN MOVING WORKER LAB - URINE ORDERABLES Performing Organization Address City/State/ZIP Code Phon e Number RV LABORATORY [facility] [address] [phone] [facility] [address] [place] [address] S. E. Lab (no room number, 1st floor of clinic) [place] [address], [phone] [facility] [address] [place] [address] S. E. Lab (no room number, 1st floor of clinic) (ABNORMAL) UA Macro with Reflex to Micro and Culture - lab collect (06/11/2021 11:50 AM CDT) [facility] gist Method Time Signature Color Urine Yellow Colorless, 06/11/2021 [facility] Straw, Light 12:04 PM Yellow, CDT Yellow Appearance Urine Clear Clear 06/11/2021 RV LABORATOR Y 12:04 PM CDT Glucose Urine Negative Negative 06/11/2021 [facility] mg/dL 12:04 PM CDT Bilirubin Urine Negative Negative 06/11/2021 [facility] 12:04 PM CDT Ketones Urine Negative Negative 06/11/2021 [facility] mg/dL 12:04 PM CDT Specific [place] 1.025 1.003 - 06/11/2021 RV LABORATOR Y Urine 1.035 12:04 PM CDT Blood Urine Trace (A) Negative 06/11/2021 RV [facility] 12:04 PM CDT pH Urine 6.5 5.0 - 7.0 06/11/2021 [facility] 12:04 PM CDT Protein Albumin Negative Negative 06/11/2021 [facility] Urine mg/dL 12:04 PM CDT Urobilinogen 0.2 0.2, 1.0 06/11/2021 [facility] Urine E.U./dL 12:04 PM CDT Nitrite Urine Negative Negative 06/11/2021 [facility] 12:04 PM CDT Leukocyte Negative Negative 06/11/2021 RV [facility] Esterase Urine 12:04 PM CDT Specimen Anatomical Collection Method Collection Time Receive d Time (Source) Location / / Volume Laterality Urine MID-STREAM URINE Non-blood 06/11/2021 11:50 021 SPECIMEN / Unknown Collection / AM CDT 11:50 AM CDT Unknown Aydee Burton APRN MOVING WORKER LAB - URINE ORDERABLES Performing Organization Address City/State/ZIP Code Phon e Number RV LABORATORY [facility] [phone] [facility] [address] [place] [address] S. E. Lab (no room number, 1st floor of clinic) [place] [address], Clinic - [facility] Lab [address] [facility] S. E. Lab (no room number, 1st floor of clinic) HPV High Risk Types DNA Cervical (06/11/2021 11:07 AM CDT) [facility] Method Time Signature Other HR HPV Negative Negative 06/17/2021 [facility] 7:06 AM MOLECULAR CDT DIAGNOSTICS HPV16 DNA Negative Negative 06/17/2021 [facility] 7:06 AM MOLECULAR CDT DIAGNOSTICS HPV18 DNA Negative Negative 06/17/2021 [facility] 7:06 AM MOLECULAR CDT DIAGNOSTICS FINAL This patient's sample is negative for HPV DNA. 06/17/2021 [facility] DIAGNOSIS 7:06 AM MOLECULAR CDT DIAGNOSTICS This test was developed and its performance characteristics determined by the [facility], Molecular Diagnostics Laboratory. It has not been cleared or approved by the FDA. [facility] laboratory is regulated un andrés CLIA as qualified to perform high-complexity testing. This test is used for clinical purposes. It should not be regarded as investigational or for research. METHODOLOGY: The Rachael Bryson 4800 system uses automated extraction, simultaneous amplification of HPV (L1 region) and beta-globin, followed by real time detection of fluorescent labeled HPV and beta magdalena bin using specific oligonucl eotide probes. The test specifically identified types HPV 16 DNA and HPV 18 DNA while concurrently detecting the rest of the high risk types (31, 33, 35, 39, 45, 51, 52, 56, 58, 59, 66 or 68). COMMENTS: This test is not i ntended for use as a screening device for woman under age 30 with normal cervical cytology. Results should be correlated with cytologic and histologic findings. Close clinical followup is recommended. Specimen Anatomical Collection Method Collection Time Receive d Time (Source) Location / / Volume Laterality Brushing CERVIX UTERI Non-blood 06/11/2021 11:07 06/16/2021 8:51 STRUCTURE / Collection / AM CDT AM CDT Unknown Unknown Aydee Burton APRN MOVING WORKER LAB - BLOOD ORDERABLES Performing Organization Address City/State/ZIP Code Phon e Number [facility] DIAGNOSTICS [place], [place] [phone] Diagnostics [phone] [address] [facility] [address] Building, Room 3-580 [place], [place] [phone] DIAGNOSTICS Diagnostics Lab [address], [facility] [address] [facility], Room D210 HPV Hold (Lab Only) (06/11/2021 11:07 AM CDT) Specimen Anatomical Collection Method Collection Time Receive d Time (Source) Location / / Volume Laterality Brushing CERVIX UTERI Non-blood 06/11/2021 11:07 06/16/2021 8:51 STRUCTURE / Collection / AM CDT AM CDT Unknown Unknown Aydee Burton APRN, CNP LAB - BEAKER AP Performing Organization Address City/State/ZIP Code Phon e Number [facility] [place] [phone] Diagnostics 500 [facility], Room 3-580 Pap imaged thin layer screen with HPV - recommended age 30 - 65 years (06/11/2021 11:07 AM CDT) Component Value Ref Test Analysis Performed At [facility] Range Method Time Signature Interpretation Negative for 06/15/2021 [facility] E lectronically Intraepithelial 3:53 PM LABORATORY sig shi by Lesion or CDT Poventud Malignancy (NILM) Fu Mary mathur C T (ASCP) on 06/15/2021 a t 3:53 PM Specimen Satisfactory for 06/15/2021 [facility] Adequacy evaluation, 3:53 PM LABORATORY endocervical/crain CDT sformation zone component present Clinical none[ablation 06/15/2021 [facility] Information 3:53 PM LABORATORY CDT LMP/Menopause 06/08/2021 06/15/2021 [facility] Date 3:53 PM LABORATORY CDT Reflex Testing Yes regardless of 06/15/2021 [facility] result 3:53 PM LABORATORY CDT Previous No 06/15/2021 [facility] Abnormal? 3:53 PM LABORATORY CDT Performing Labs The technical 06/15/2021 [facility] component of this 3:53 PM LABORATORY testing was CDT completed at [facility] Laboratory Specimen Anatomical Collection Method Collection Time Receive d Time (Source) Location / / Volume Laterality Brushing CERVIX UTERI 06/11/2021 11:07 06/11/2021 STRUCTURE / AM CDT 11:26 AM CDT Unknown Aydee Burton APRN, CNP LAB - DAHIANA JORDAN Performing Organization Address City/State/ZIP Code Phon e Number SPECIALTY [place] [phone] [address] [facility] [address] Building, Room 3-580 [facility] LABORATORY [address] [place], [place] [phone] documented in this encounter Visit Diagnoses Diagnosis Routine general medical examination at a health care facility - Primary PTSD (post-traumatic stress disorder) Posttraumatic stress disorder 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 Anxiety Anxiety state, unspecified Bilateral occipital neuralgia Other syndromes affecting cervical regio n Elevated LFTs Other abnormal blood chemistry Neck pain Cervicalgia Night sweats Generalized hyperhidrosis Pelvic pain in female Unspecified symptom associated with fema le genital organs Hyperlipidemia LDL goal <130 Other and unspecified hyperlipidemia Gasping for breath Vitamin D deficiency Unspecified vitamin D deficiency Screening for malignant neoplasm of cerv ix Screening for malignant neoplasm of the cervix Night sweats Generalized hyperhidrosis Pelvic pain in female Unspecified symptom associated with fema le genital organs Lipoma of skin and subcutaneous tissue Lipoma of other skin and subcutaneous ti ssue documented in this encounter Additional Health Concerns Assessment Noted Time PHQ-9 Depression Total Score: 17 06/12/2021 7:02 AM CD T documented as of this encounter Care Teams Lock Fitter Relationship Specialty Start Date End Date Aydee Burton, PCP - General Nurse Practitioner - 05/17/21 MANAGER FACILITY [facility] [address] [place] [phone] Aydee Burton, Assigned PCP 04/28/21 MANAGER FACILITY MOVING WORKER [address] [place], [place] 506182 documented as of this encounter
--- OUTSIDE RECORDS SUMMARY | 2022-09-21 04:18 | XMS_ITS | Encounter Summary ---
:1980 Author Organization [place] Address [address] [place] [address] Care Team Providers Name Role Phone Aydee Burton APRN, CNP Primary Care Provider [phone] Aydee Burton APRN TICKET SCHEDULER Unavailable [phone] Encounter Details Date Type Department Care Team Description 06/15/2021 Travel Social History Tobacco Use Types Packs/Day [...] How often do you attend denominational or confucianism services? Never 08/05/2021 Do you [...] at Date Recorded Female 11/09/2021 7:53 PM FRAME BENDER COVID-19 Exposure Response Date Recorded In the last month, have you been in contact with No / Unsure 06/15/2021 8:06 AM CDT someone who was confirmed or suspected to have Coronavirus / COVID-19? documented as of this encounter Plan of Treatment Upcoming Encounters Date Type Specialty Care Team Description 09/26/2022 Appointment Speech Therapy Obdulio Barrera MD 420 [facility] 276 [place], [place] [address] Anabel Chew, CAN STERILIZER [address] [place], [place] [address] 09/27/2022 Therapy Visit Physical Therapy Luisana Watkins, PT 2150 [place] [address] 09/29/2022 Virtual Visit Pain & Palliative Marilia Deluna, Ronald PhD [address] [place] [address] 09/30/2022 Office Visit Family Practice Aydee Burton, ACID CRANE OPERATOR TICKET SCHEDULER 4151 [place], [place] [address] 10/03/2022 Therapy Visit Physical Therapy Una Reardon, PT 215 [place] [phone] 10/10/2022 Hospital Encounter Surgery Lesly Celaya MD [address] [place], [place] [address] 10/10/2022 Office Visit Surgery Lesly Celaya MD [address] [place], [place] [address] Ninoska Flowers, FLORES-C [address] [place], [place] [address] 10/10/2022 Surgery Surgery Lesly Celaya, EXCISION, MASSES - MD back, abdomen, [address] [place] [address] 10/11/2022 Virtual Visit Clari Su, [place] [id number] [address] 6[address]34 10/14/2022 Appointment Speech Therapy Anabel Chew, CAN STERILIZER [address] [address] 10/21/2022 Office Visit Pulmonology Obdulio Barrera MD [address] [place] [address] 276 [place], [place] [address] 10/25/2022 PRE VISIT ENT Charo Burton MD Previsit [address] [place] [address] 10/25/2022 Office Visit Charo Carter MD [address] [place] [address] [phone] 10/25/2022 Office Visit ENT Provider, Jeannette Ent Dysphonia Manager [employer] 10/28/2022 Appointment Speech Therapy Anabel Chew, CAN STERILIZER [address] [address] 11/17/2022 Appointment Speech Therapy Anabel Chew, CAN STERILIZER [address] 396 [place] [address] 12/23/2022 Office Visit Neurology Colby Yeung MD [address] [place] [address] Scheduled Procedures Name Priority Associated Diagnoses Date/Time EXCISION, MASS, TORSO Lipoma of skin and subcuta neous 10/10/2022 7:30 AM FRAME BENDER tissue documented as of this encounter Visit Diagnoses Not on filedocumented in this encounter Additional Health Concerns Assessment Noted Time PHQ-9 Depression Total Score: 17 06/12/2021 7:02 AM CD T documented as of this encounter Care Teams Underwear Cutter Relationship Specialty Start Date End Date Aydee Burton, PCP - General Nurse Practitioner - 05/17/21 ACID CRANE OPERATOR TICKET SCHEDULER Family [address] [place] [address]53302 Aydee Burton, Assigned PCP 04/28/21 ACID CRANE OPERATOR [facility] 4[address] [place], [place] [address] documented as of this encounter
--- OUTSIDE RECORDS SUMMARY | 2022-09-21 04:18 | XMS_ITS | Encounter Summary ---
:1980 Author Organization [place] Address [address] [place] [place] [address] Care Team Providers Name Role Phone Aydee Burton APRN ENVIRONMENTAL SERVICES ASSISTANT Primary Care Provider [phone] Aydee Burton APRN ENVIRONMENTAL SERVICES ASSISTANT Unavailable [phone] Reason for Visit Reason Onset Date Comments Refill Request 06/14/2021 Encounter Details Date Type Department Care Team Description 06/14/2021 Telephone [facility] Aydee Burton, Refill Request Prior Niall HENDRICKS ENVIRONMENTAL SERVICES ASSISTANT [address] [place] [address] [place] [address] [phone] Social History Tobacco Use Types Packs/Day Years [...] How often do you attend evangelical or orthodoxy services? Never 08/05/2021 Do you belong to [...] at Date Recorded Female 11/09/2021 7:53 PM PATIENT SERVICE REP COVID-19 Exposure Response Date Recorded In the last month, have you been in contact with No / Unsure 06/11/2021 10:20 AM CDT someone who was confirmed or suspected to have Coronavirus / COVID-19? documented as of this encounter Miscellaneous Notes Telephone Encounter - Aydee Burton APRN CNP - 06/14/2021 9:15 AM CDT Images from the original note were not included. Already addressed. TARA Spivey- Telephone Encounter - Carolyn Alejandro RN - 06/14/2021 9:11 AM CDT [facility] pharmacy calling - stating pt was given a script for Cymbalta and was told t take 3 - 30 mg tabs daily - insurance will not cover it Can the script be changed to 60 mg and then a 30 mg tab ? Please review and advise Thank you Carolyn Alejandro RN, BSN [facility] documented in this encounter Plan of Treatment Upcoming Encounters Date Type Specialty Care Team Description 09/26/2022 Appointment Speech Therapy Obdulio Barrera MD 420 [facility] 276 [place], [place] [address] Anabel Chew, GLOVE PARTS CUTTER [place] [address] [facility] 396 [place], [place] [address] 09/27/2022 Therapy Visit Physical Therapy Luisana Watkins, PT 2[address] [place] [address] 09/29/2022 Virtual Visit Pain & Palliative Marilia Deluna, [facility] PhD [address] [place], [place] [address] 09/30/2022 Office Visit Family Practice Aydee Burton, CUSTODIAL LABORER ENVIRONMENTAL SERVICES ASSISTANT [address] [place] [phone] 10/03/2022 Therapy Visit Physical Therapy Una Reardon, PT 2155 [place] [address] 10/10/2022 Hospital Encounter Surgery Lesly Celaya MD [address] [place], [place] [phone] 10/10/2022 Office Visit Surgery Lesly Celaya MD [address] [place], [place] [phone] Ninoska Flowers PA-C [address] [place], [place] [phone] 10/10/2022 Surgery Surgery Lesly Celaya, EXCISION, MASSES - MD back, abdomen, [address] extremity [place], [place] [address] 10/11/2022 Virtual Visit Clari Su, [facility] [address] [place] [place] [address] 10/14/2022 Appointment Speech Therapy Anabel Chew, GLOVE PARTS CUTTER [address] [address] 10/21/2022 Office Visit Pulmonology Obdulio Barrera MD [address] [address] 10/25/2022 PRE VISIT ENT Charo Burton MD Previsit 909 [place], [place] [address] 10/25/2022 Office Visit ENT Charo Burton MD 9[address] [place], [place] [address] 10/25/2022 Office Visit ENT Provider, Ent Dysphonia Director Client 10/28/2022 Appointment Speech Therapy Anabel Chew, CELINE [address] [address] 11/17/2022 Appointment Speech Therapy Anabel Chew SLP [address] 59[address] 12/23/2022 Office Visit Neurology Colby Yeung MD [address] [place] [address] Scheduled Procedures Name Priority Associated Diagnoses Date/Time EXCISION, MASS, TORSO Lipoma of skin and subcuta neous 10/10/2022 7:30 AM PATIENT SERVICE REP tissue documented as of this encounter Visit Diagnoses Not on filedocumented in this encounter Additional Health Concerns Assessment Noted Time PHQ-9 Depression Total Score: 17 06/12/2021 7:02 AM CD T documented as of this encounter Care Teams Medical Technologist Clinical Relationship Specialty Start Date End Date Aydee Burton, PCP - General Nurse Practitioner - 05/17/21 CUSTODIAL LABORER ENVIRONMENTAL SERVICES ASSISTANT [facility] [address] [place] [address] Aydee Burton, Assigned PCP 04/28/21 CUSTODIAL LABORER [facility] 4[address] [place], [place] [address] documented as of this encounter
--- OUTSIDE RECORDS SUMMARY | 2022-09-21 04:18 | XMS_ITS | Encounter Summary ---
:1980 Author Organization [place] Address [address] [place] [address] Care Team Providers Name Role Phone Aydee Burton APRN TEMPORARY DATA ENTRY CLERK Primary Care Provider [phone] Aydee Burton APRN TEMPORARY DATA ENTRY CLERK Unavailable [phone] Reason for Visit Diagnostic Imaging XR (Routine) - Closed Specialty Diagnoses / Procedures Referred By Contact Refer red To Contact Diagnoses Night sweats Aydee Burton APRN Procedures XR Chest 2 Views TEMPORARY DATA ENTRY CLERK 4151 [place] [address] Referral ID Status Reason Start Date Expiration Date Visits Requ ested Visits Authorized [id number] Closed 06/11/2021 06/11/2022 1 1 Encounter Details Date Type Department Care Team Description 06/11/2021 Ancillary Procedure [facility] Aydee Burton ht sweats [facility] ELADIO Mendez TEMPORARY DATA ENTRY CLERK [address] 5 [phone] Social History Tobacco Use Types Packs/Day Years [...] How often do you attend confucianism or yarsani services? 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/2021 7:53 PM ANIMAL GENETICIST COVID-19 Exposure Response Date Recorded In the last month, have you been in contact with No / Unsure 06/11/2021 10:20 AM CDT someone who was confirmed or suspected to have Coronavirus / COVID-19? documented as of this encounter Miscellaneous Notes Result Encounter Note - Aydee Burton, SYSTEM SUPPORT SPECIALIST TEMPORARY DATA ENTRY CLERK - 06/11/2021 11:35 AM CDT Dear Marta, Here is a summary of your recent test results: Great news your chest xray was normal For additional lab test information, labtestsonline.org is an excellent reference. In addition, here is a list of due or overdue Health Maintenance reminders: Please call us at [phone] (or use Taskforce) to address the above recommendations if needed. Thank you for choosing [facility]. It was an honor and a privilege to participate in your care. Healthy regards, TARA Spivey [facility] documented in this encounter Plan of Treatment Upcoming Encounters Date Type Specialty Care Team Description 09/26/2022 Appointment Speech Therapy Obdulio Barrera MD 420 [facility] 276 [place], [place] [address] Anabel Chew, STRAWBERRY GROWER [facility] 516 [facility] 396 [place], [place] [address] 09/27/2022 Therapy Visit Physical Therapy Luisana Watkins, PT 2155 [place] [address] 09/29/2022 Virtual Visit Pain & Palliative Marilia Deluna, [facility] PhD [address] [place], [place] [address] 09/30/2022 Office Visit Family Practice Aydee Burton APRN TEMPORARY DATA ENTRY CLERK [address] [place] [address]782 10/03/2022 Therapy Visit Physical Therapy Una Reardon, PT 2[address] [place] [phone] 10/10/2022 Hospital Encounter Surgery Lesly Celaya MD [address] [facility] [address] 10/10/2022 Office Visit Surgery Lesly Celaya MD [address] [facility] [place], [place] [phone] Ninoska Flowers PA-C [address] E [facility] 300 [place], [place] [address] 10/10/2022 Surgery Surgery Yomi, Lesly, EXCISION, MASSES - MD back, abdomen, [address] [place] [address] 10/11/2022 Virtual Visit Pharm Clari Stoll, [facility] [address] [place] [phone] [place] [address] 10/14/2022 Appointment Speech Therapy Anabel Chew, STRAWBERRY GROWER [address] 251035 10/21/2022 Office Visit Pulmonology Obdulio Barrera MD [address] 1298[address] 10/25/2022 PRE VISIT ENT Charo Burton MD Previsit 909 [place], [place] [address] 10/25/2022 Office Visit ENT Charo Burton MD 909 [place], [place] [address]385 10/25/2022 Office Visit ENT Provider, Ent Dysphonia Scudding Inspector 10/28/2022 Appointment Speech Therapy Anabel Chew SLP [address] [address]32[address] 11/17/2022 Appointment Speech Therapy Anabel Chew STRAWBERRY GROWER [address] [address]25[address] 12/23/2022 Office Visit Neurology Colby Yeung MD [address] [address] Scheduled Procedures Name Priority Associated Diagnoses Date/Time EXCISION, MASS, TORSO Lipoma of skin and subcuta neous 10/10/2022 7:30 AM ANIMAL GENETICIST tissue documented as of this encounter Procedures Procedure Name Priority Date/Time Associated Diagnosis Comme nts XR CHEST 2 VIEWS Routine 06/11/2021 12:02 PM Night sweats Resu lts for this CDT procedure are i n the results section. documented in this encounter Results XR Chest 2 Views (06/11/2021 12:02 PM CDT) Anatomical Region Laterality Modality Chest Computed Radiography Specimen (Source) Anatomical Location Collection Method / Collectio n Time Received Time / Laterality Volume Impressions 06/11/2021 12:52 PM CDT IMPRESSION: No radiographic evidence of acute chest abnormality. JAH CLINE MD SYSTEM ID: [id number] Narrative 06/11/2021 12:52 PM CDT CHEST TWO [...] chest abnormality. JAH CLINE MD SYSTEM ID: [id number] Aydee Burton SYSTEM SUPPORT SPECIALIST TEMPORARY DATA ENTRY CLERK IMG DIAGNOSTIC IMAGING O RDERABLES documented in this encounter Visit Diagnoses Diagnosis Night sweats Generalized hyperhidrosis Lipoma of skin and subcutaneous tissue Lipoma of other skin and subcutaneous ti ssue documented in this encounter Additional Health Concerns Assessment Noted Time PHQ-9 Depression Total Score: 17 06/12/2021 7:02 AM CD T documented as of this encounter Care Teams Lab Coordinator Relationship Specialty Start Date End Date Aydee Bruton, PCP - General Nurse Practitioner - 05/17/21 SYSTEM SUPPORT SPECIALIST TEMPORARY DATA ENTRY CLERK [facility] 29[address] [place], [place] [address] Aydee Burton, Assigned PCP 04/28/21 SYSTEM SUPPORT SPECIALIST TEMPORARY DATA ENTRY CLERK [address] [place], [place] [address] documented as of this encounter
--- OUTSIDE RECORDS SUMMARY | 2022-09-21 04:19 | XMS_ITS | Encounter Summary ---
:1980 Author Organization [place] Address [address] [facility] [place] [address] Care Team Providers Name Role Phone Aydee Burton ETIQUETTE COACH MRI TECHNOLOGIST Primary Care Provider [phone] Aydee Burton APRN MRI TECHNOLOGIST Unavailable [phone] Louisa Hood ETIQUETTE COACH MRI TECHNOLOGIST Unavailable [phone] Se Levy SUPERVISOR PASTE MIXING Unavailable Unavailable Anny Bernabe Unavailable Unavailable Clari Ruiz [facility] Unavailable [phone] Angel Hannah MD Unavailable Mago Swift SUPERVISOR FEED HOUSE Unavailable Encounter Details Date Type Department Care Team Description 05/04/[address] [facility] Scan, CLINIC REFERRAL Health Info Mgmt Non-Provider [facility] [address] [place] [address] Social History Tobacco Use Types Packs/Day Years Used Date Smoking Tobacco: Never Assessed Alcohol Habits Answer Date Recorded How often [...] How often do you attend confucianism or rastafari services? Never 08/05/2021 Do you [...] at Date Recorded Female 11/09/2021 7:53 PM JUMP IRON MACHINE PRESSER COVID-19 Exposure Response Date Recorded In the last month, have you been in contact with No / Unsure 07/07/2021 3:26 PM CDT someone who was confirmed or suspected to have Coronavirus / COVID-19? documented as of this encounter Plan of Treatment Upcoming Encounters Date Type Specialty Care Team Description 09/26/2022 Appointment Speech Therapy Obdulio Barrera MD 420 [facility] 276 [place], [place] [address] Anabel Chew, HARBOR PATROL POLICE [address] [place] [address] 09/27/2022 Therapy Visit Physical Therapy Luisana Watkins, PT [address] [place] [address] 09/29/2022 Virtual Visit Pain & Palliative Marilia Deluna, Ronald PhD [address] [place] [address] 09/30/2022 Office Visit Family Practice Aydee Burton, ETIQUETTE COACH MRI TECHNOLOGIST 4[address] [place], [place] [phone] 10/03/2022 Therapy Visit Physical Therapy David-Una Tang, PT [address] [place] [phone] 10/10/2022 Hospital Encounter Surgery Lesly Celaya MD [address] [place] [address] 10/10/2022 Office Visit Surgery Lesly Celaya MD [address] [place] [address] Ninoska Flowers, PA-C [address] [place] [address] 10/10/2022 Surgery Surgery Lesly Celaya, EXCISION, MASSES - MD back, abdomen, [address] right lower [facility] [place] [address] 10/11/2022 Virtual Visit Clari Su, [facility] [address] [address] 10/14/2022 Appointment Speech Therapy Anabel Chew, HARBOR PATROL POLICE [facility] 516 [facility] 396 [place] [address] 10/21/2022 Office Visit Pulmonology Obdulio Barrera MD 420 [facility] 276 [place], [place] [phone] 10/25/2022 PRE VISIT ENT Charo Burton MD Previsit 909 [place] [address] 10/25/2022 Office Visit ENT Charo Burton MD 909 [place], [place] [address] 10/25/2022 Office Visit ENT Provider, Jeannette Ent Dysphonia Cotton Picker 10/28/2022 Appointment Speech Therapy Anabel Chew, HARB[employer]OL POLICE [address] [address] 11/17/2022 Appointment Speech Therapy Anabel Chew, HARBOR [employer]ROL POLICE [address] [address] 12/23/2022 Office Visit Neurology Colby Yeung MD [address] [place] [address] Scheduled Procedures Name Priority Associated Diagnoses Date/Time EXCISION, MASS, TORSO Lipoma of skin and subcuta neous 10/10/2022 7:30 AM JUMP IRON MACHINE PRESSER tissue documented as of this encounter Visit Diagnoses Not on filedocumented in this encounter Care Teams Forensic Materials Engineer Relationship Specialty Start Date End Date Aydee Burton, PCP - General Nurse Practitioner - 05/17/21 ETIQUETTE COACH MRI TECHNOLOGIST Family [address] [place] [address]172 Aydee Burton, Assigned PCP 04/28/21 ETIQUETTE COACH MRI TECHNOLOGIST [address] [place] [address] [phone] Louisa Hood, Assigned Neuroscience 07/11/21 ETIQUETTE COACH MRI TECHNOLOGIST Provider [address] [place] [address]5625 Se Levy, Lead Glass Cutter Helper 08/05/21 05/12/22 [facility] 08/05/21 09/30/21 Worker Clari Ruiz Pharmacist Pharmacist 08/06/21 06/07/22 Jocelyn [facility] [address] [place] [address] [place], Assigned Sleep 08/01/21 Angel Turcios, Provider [address] [place] [address] Mago Swift, [facility] Lead Glass Cutter Helper Business Intelligence Etl Developer - 08/05/21 Clinical documented as of this encounter
--- OUTSIDE RECORDS SUMMARY | 2022-09-21 04:19 | XMS_ITS | Encounter Summary ---
:1980 Author Organization [place] Address [address] [place] [address] Care Team Providers Name Role Phone Aydee Nam APRN FOOD AND BEVERAGE CASHIER Primary Care Provider [phone] Aydee Nam APRN FOOD AND BEVERAGE CASHIER Unavailable [phone] Reason for Referral Mental Health Outpatient (Routine) - Closed Specialty Diagnoses / Procedures Referred By Contact Refer red To Contact Diagnoses Anxiety Depression, unspecified depression type PTSD (post-traumatic stress disorder) Aydee Nam APRN FOOD AND BEVERAGE CASHIER [address] [place] [address] Referral ID Status Reason Start Date Expiration Date Visits Requ ested Visits Authorized [id number] Closed 05/17/2021 05/17/2022 1 1 Diagnostic Imaging XR (Routine) - Closed Specialty Diagnoses / Procedures Referred By Contact Refer red To Contact Diagnoses Neck pain Aydee Nam APRN Procedures XR Cervical Spine 2/3 Views [employer] AND BEVERAGE CASHIER [address] [place] [address] Referral ID Status Reason Start Date Expiration Date Visits Requ ested Visits Authorized [id number] Closed 05/17/2021 05/17/2022 1 1 Reason for Visit Reason Comments thyroid Encounter Details Date Type Department Care Team Description 05/17/2021 Office Visit [facility] Aydee Nam Abnormal t hyroid ultrasound (Primary Dx); Clinic [place] ELADIO Mendez CNP Excessive sweating; [address] [facility] [address] [facility] Other fatigue; [address] Neck pain; [place], [place], [place] [address] Palpitations; [id number] Anxiety; [phone] Depressio n, unspecified depression type; PTSD (post-trau matic stress disorder); Bilateral occip ital neuralgia; Encounter for s creening for HIV; Need for hepati tis C screening test; Screening for h yperlipidemia; Elevated LFTs Social History Tobacco Use Types Packs/Day Years Used Date Smoking Tobacco: Never Smokeless Tobacco: Never Alcohol Habits Answer Date Recorded How often [...] How often do you attend mandaeism or restorationist services? 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 documented as of this encounter Last Filed Vital Signs Vital Sign Reading Time Taken Comments Blood Pressure 112/80 05/17/2021 7:16 AM CDT Pulse 105 05/17/2021 7:16 AM CDT Temperature 36.1 ??C (96.9 ??F) 05/17/2021 7:16 AM CDT Respiratory Rate 16 05/17/2021 7:16 AM CDT Oxygen Saturation 97% 05/17/2021 7:16 AM CDT Inhaled Oxygen Concentration - - Weight 93.8 kg (206 lb 12.8 oz) 05/17/2021 7:16 AM CDT Height 170.2 cm (5' 7) 05/17/2021 7:16 AM CDT Body Mass Index 32.39 05/17/2021 7:16 AM CDT documented in this encounter Progress Notes Aydee Nam, ELADIO FOOD AND BEVERAGE CASHIER - 05/17/2021 7:00 AM CDT Images from the original note were not included. Assessment & Plan Abnormal thyroid ultrasound Would like to see record of her thyroid ultrasound to make assessment of plan of care moving forward. Records requested. Labs today. Excessive sweating Other fatigue Labs. Records from [facility] requested. - CBC with platelets and differential - CRP, inflammation - ESR: Erythrocyte sedimentation rate - TSH with free T4 reflex - Lipid panel reflex to direct LDL Fasting - Comprehensive metabolic panel (BMP + Alb, Alk Phos, ALT, AST, Total. Bili, TP) - Vitamin D Deficiency - Lamotrigine Level - Ferritin - Iron and iron binding capacity Neck pain Neck x-ray today. Awaiting official radiology read. Consider more advanced imaging if symptoms persist Continue with current at home cares alternating ice and heat hesitant to give a muscle relaxer she is already extremely fatigued. Could consider a burst of steroids. - XR Cervical Spine 2/3 Views Palpitations Normal EKG consider Zio patch monitoring if labs are normal or if symptoms persist - EKG 12-lead complete w/read - Clinics Anxiety Depression, unspecified depression type PTSD (post-traumatic stress disorder) Moving care from [facility] to [facility]. Needs new psych provider for medication management as well as psychology for counseling. - MENTAL HEALTH REFERRAL - Adult; Psychiatry; Psychiatry and Psychotherapy (Individual/Couple/FamilyTherapy); Collaborative Care Psychiatry Service and [facility] Counseling ; No - Patient must be evaluated prior to placing re... Bilateral occipital neuralgia Is currently on gabapentin and Cymbalta. She feels like this pain she is having is different from her normal discomfort. Encounter for screening for HIV - HIV Antigen Antibody Combo Need for hepatitis C screening test - Hepatitis C antibody BMI: Estimated body mass index is 32.39 kg/m?? as calculated from the following: Height as of this encounter: 1.702 m (5' 7). Weight as of this encounter: 93.8 kg (206 lb 12.8 oz). Return in about 4 weeks (around 06/14/2021) for Wellness exam fasting labs. Aydee Nam, TRAFFIC INVESTIGATOR-[facility]IOR [facility] Marta is a 41 year old who presents for the following health issues HPI Concern - thyroid ? Onset: 2 months neck pain left Description: tired, sweating a lot, pain on left side of neck Intensity: moderate Progression of Symptoms: same Accompanying Signs & Symptoms: none Previous history of similar problem: no Precipitating factors: Worsened by: nothing Alleviating factors: Improved by: tylenol, ibuprofen, aleve Therapies tried and outcome: None Patient new to [facility] Reports multiple concerns: She is having left neck and shoulder pain Extreme excessive fatigue Excessive sweating worse during the day to denies night sweats Intermittent palatations Seen for this in reports she believes they did a thyroid ultrasound and told she has a nodule that was small does not recall specific lab work on thyroid reports a normal CBC She requests a psych provider within the [facility] system for her psych medications. No concern for has a tubal + ablation. Minimal menstrual cycle. Review of Systems Constitutional, HEENT, cardiovascular, pulmonary, GI, , musculoskeletal, neuro, skin, endocrine and psych systems are negative, except as otherwise noted in the HPI. Objective BP 112/80 Pulse 105 Temp 96.9 ??F (36.1 ??C) Resp 16 Ht 1.702 m (5' 7) Wt 93.8 kg (206 lb12.8 oz) LMP 05/10/2021 SpO2 97% BMI 32.39 kg/m?? Body mass index is 32.39 kg/m??. Physical Exam GENERAL: healthy, alert and [...] MS: no gross musculoskeletal defects noted, no edema; normal neck ROM SKIN: no suspicious lesions or rashes NEURO: Normal strength and tone, mentation intact and speech normal; CN 2-12 intact PSYCH: mentation appears normal, affect normal/bright Results for orders placed or performed in visit on 05/17/21 (from the past 24 hour(s)) CBC with platelets and differential Result Value Ref Range WBC 5.2 4.0 - 11.0 10e9/L RBC Count 4.10 3.8 - 5.2 10e12/L Hemoglobin 12.9 11.7 - 15.7 g/dL Hematocrit 38.7 35.0 - 47.0 % MCV 94 78 - 100 fl MCH 31.5 26.5 - 33.0 pg MCHC 33.3 31.5 - 36.5 g/dL RDW 12.3 10.0 - 15.0 % Platelet Count 277 150 - 450 10e9/L % Neutrophils 61.1 % % Lymphocytes 26.2 % % Monocytes 10.0 % % Eosinophils 1.9 % % Basophils 0.8 % Absolute Neutrophil 3.2 1.6 - 8.3 10e9/L Absolute Lymphocytes 1.4 0.8 - 5.3 10e9/L Absolute Monocytes 0.5 0.0 - 1.3 10e9/L Absolute Eosinophils 0.1 0.0 - 0.7 10e9/L Absolute Basophils 0.0 0.0 - 0.2 10e9/L Diff Method Automated Method ESR: Erythrocyte sedimentation rate Result Value Ref Range Sed Rate 9 0 - 20 mm/h documented in this encounter Miscellaneous Notes Result Encounter Note - Aydee Nam APRN CNP - 05/17/2021 7:00 AM CDT Results discussed directly with patient while patient was present. Any further details documented inthe note. Aydee Nam APRN CNP Result Encounter Note - Aydee Nam APRN CNP - 05/17/2021 7:00 AM CDT Placed in a telephone encounter. TARA [facility] Addendum Note - Aydee Nam APRN CNP - 05/17/2021 7:00 AM CDT Addended by: AYDEE NAM on: 05/20/2021 09:27 AM Modules accepted: Orders documented in this encounter Plan of Treatment Upcoming Encounters Date Type Specialty Care Team Description 09/26/2022 Appointment Speech Therapy Obdulio Barrera MD [address] [facility] [address] [place], [place] [address] Anabel Chew, CELINE [facility] [address] [facility] [address] [place] [address] 09/27/2022 Therapy Visit Physical Therapy Luisana Watkins, PT [address] [place] [address] 09/29/2022 Virtual Visit Pain & Palliative Marilia Deluna, Care PhD [address] [place], [place] [address] 09/30/2022 Office Visit Family Practice Aydee Nam, COMPUTER GRAPHICS ILLUSTRATOR FOOD AND BEVERAGE CASHIER [address] [place], [place] [address] 10/03/2022 Therapy Visit Physical Therapy Una Reardon, PT [address] [place] [phone] 10/10/2022 Hospital Encounter Surgery Lesly Celaya MD [address] [place] [address] 10/10/2022 Office Visit Surgery Lesly Celaya MD [address] [place] [address] Ninoska Flowers, PA-C [address] [place] [address] 10/10/2022 Surgery Surgery Lesly Cleaya, EXCISION, MASSES - MD back, abdomen, [address] right lower [facility] [place] [address] 10/11/2022 Virtual Visit Clari Su, [facility] [id number] [place] [address] 10/14/2022 Appointment Speech Therapy Anabel Chew, PROGRAM ADVISOR [facility] [address] [facility] [address] [place] [address] 10/21/2022 Office Visit Pulmonology Obdulio Barrera MD [address] [address] 10/25/2022 PRE VISIT ENT Charo Burton MD Previsit [address] [place] [address] 10/25/2022 Office Visit Charo Carter MD [address] [place] [address] 10/25/2022 Office Visit ENT Provider, Jeannette Ent Dysphonia Factory Supervisor 10/28/2022 Appointment Speech Therapy Anabel Chew, PROGRAM ADVISOR [address] [address] 11/17/2022 Appointment Speech Therapy Anabel Chew SLP [address] [address] 12/23/2022 Office Visit Neurology Colby Yeung MD [address] [place] [address] Scheduled Procedures Name Priority Associated Diagnoses Date/Time EXCISION, MASS, TORSO Lipoma of skin and subcuta neous 10/10/2022 7:30 AM 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 documented as of this encounter Procedures Procedure Name Priority Date/Time Associated Diagnosis Comme nts HIV ANTIGEN ANTIBODY Routine 05/17/2021 8:03 Encounter for Res ults for this COMBO AM CDT screening for HIV procedure are in the results section. CBC WITH PLATELETS & Routine 05/17/2021 8:03 Excessive s weating Results for this DIFFERENTIAL AM CDT Other fatigue procedure are in the results section. LAMOTRIGINE LEVEL Routine 05/17/2021 8:03 Excessive swea ting Results for this AM CDT Other fatigue procedure are in the results section. VITAMIN D DEFICIENCY Routine 05/17/2021 8:03 Excessive s weating Results for this SCREENING AM CDT Other fatigue procedure are in the results section. TSH WITH FREE T4 Routine 05/17/2021 8:03 Excessive sweat ing Results for this REFLEX AM CDT Other fatigue procedure are in the results section. LIPID REFLEX TO Routine 05/17/2021 8:03 Screening for Results for this DIRECT LDL PANEL AM CDT hyperlipidemia procedure are in the results section. IRON AND IRON BINDING Routine 05/17/2021 8:03 Other fatigue Re sults for this CAPACITY AM CDT procedure are i n the results section. HEPATITIS C ANTIBODY Routine 05/17/2021 8:03 Need for hepatiti s C Results for this AM CDT screening test procedure are in the results section. GGT Routine 05/17/2021 8:03 Abnormal thyroid Results for this AM CDT ultrasound procedure are i n the results section. FERRITIN Routine 05/17/2021 8:03 Other fatigue Results for this AM CDT procedure are i n the results section. ERYTHROCYTE Routine 05/17/2021 8:03 Excessive sweati ng Results for this SEDIMENTATION RATE AM CDT Other fatigue procedur e are in AUTO the results section. CRP INFLAMMATION Routine 05/17/2021 8:03 Excessive sweat ing Results for this AM CDT Other fatigue procedure are in the results section. COMPREHENSIVE Routine 05/17/2021 8:03 Excessive sweati ng Results for this METABOLIC PANEL AM CDT Other fatigue procedure a re in the results section. EKG 12-LEAD COMPLETE Routine 05/17/2021 7:43 Palpitations Resu lts for this W/READ - CLINICS AM CDT procedure a re in the results section. documented in this encounter Results XR Cervical Spine 2/3 Views (05/17/2021 8:12 AM CDT) Anatomical Region Laterality Modality Spine Computed Radiography Specimen (Source) Anatomical Location Collection Method / Collectio n Time Received Time / Laterality Volume Impressions 05/17/2021 9:24 AM CDT IMPRESSION: There is some qmlj-qg-udessshh cervical kyphosis centered on the C4-C5 level which could be positi onal or due to some muscle spasm. Posterior alignment is otherwise normal. Vertebral body heights are maintained. Soft tissues are unremar kable. ARON CAPPS MD SYSTEM ID: ??[id number] Narrative 05/17/2021 9:24 AM CDT CERVICAL SPINE THREE VIEWS ??05/17/2021 8:12 AM HISTORY: Neck pain. COMPARISON: None. Procedure Note Aron Capps MD - 05/17/2021Form atting of this note might be different from the original. CERVICAL SPINE THREE VIEWS 05/17/2021 8:12 AM HISTORY: Neck pain. COMPARISON: None. IMPRESSION: There is some gbcw-zx-jmnqvj te cervical kyphosis centered on the C4-C5 level which could be positi onal or due to some muscle spasm. Posterior alignment is otherwise normal. Vertebral body heights are maintained. Soft tissues are unremar kable. ARON CAPPS MD SYSTEM ID: [id number] Aydee Nam APRN FOOD AND BEVERAGE CASHIER IMG DIAGNOSTIC IMAGING O RDERABLES (ABNORMAL) GGT (05/17/2021 8:03 AM CDT) athologist Signature GGT 207 (H) 0 - 40 U/L 05/20/2021 [facility] 10:55 AM CDT [facility] Specimen Anatomical Collection Method Collection Time Receive d Time (Source) Location / / Volume Laterality 05/17/2021 8:03 AM 8:04 CDT AM CDT Aydee Nam APRN FOOD AND BEVERAGE CASHIER LAB - BLOOD ORDERABLES Performing Organization Address City/State/ZIP Code Phon e Number [facility] [address] [place], [place] [id number] [place] [address] Hepatitis C antibody (05/17/2021 8:03 AM CDT) [facility] Method Time Signature Hepatitis C Nonreactive NR^Nonrea 05/17/2021 [facility] ctive 5:49 PM CDT [facility] Comment: Assay performance characteristics have n ot been established for newborns, infants, and children Specimen Anatomical Collection Method Collection Time Receive d Time (Source) Location / / Volume Laterality Blood 05/17/2021 8:03 AM 8:04 CDT AM CDT Aydee Nam APRN FOOD AND BEVERAGE CASHIER LAB - BLOOD ORDERABLES Performing Organization Address City/State/ZIP Code Phon e Number [facility] [address] HIV Antigen Antibody Combo (05/17/2021 8:03 AM CDT) Patholo gist Method Time Signature HIV Antigen Nonreactive NR^Nonrea 05/17/2021 [facility] ctive 5:49 PM CDT MD MEDICAL Combo [facility] Comment: HIV-1 p24 Ag & HIV-1/HIV-2 Ab N ot Detected Specimen Anatomical Collection Method Collection Time Receive d Time (Source) Location / / Volume Laterality Blood 05/17/2021 8:03 AM 8:04 CDT AM CDT Aydee Nam APRN, CNP LAB - BLOOD ORDERABLES Performing Organization Address City/[facility]/ZIP Code Phon e Number [facility] [address] Iron and iron binding capacity (05/17/2021 8:03 AM CDT) P athologist Signature Iron 89 35 - 180 05/17/2021 [facility] ug/dL 1:31 PM CDT [facility] Iron Binding 361 240 - 430 05/17/2021 [facility] Cap ug/dL 1:32 PM CDT [facility] Iron Saturation 25 15 - 46 % 05/17/2021 [facility] Index 1:32 PM CDT [facility] Specimen Anatomical Collection Method Collection Time Receive d Time (Source) Location / / Volume Laterality Blood 05/17/2021 8:03 AM 1 8:04 CDT AM CDT Aydee Nam APRN, CNP LAB - BLOOD ORDERABLES Performing Organization Address City/State/ZIP Code Phon e Number [facility] [address] [phone] [facility] [address] [place], [place] [address] [facility] [address] [address], U [phone] Ferritin (05/17/2021 8:03 AM CDT) athologist Signature Ferritin 24 12 - 150 05/17/2021 [facility] ng/mL 1:[address] [facility] Specimen Anatomical Collection Method Collection Time Receive d Time (Source) Location / / Volume Laterality Blood 05/17/2021 8:03 AM 8:04 CDT AM CDT Aydee Nam APRN FOOD AND BEVERAGE CASHIER LAB - BLOOD ORDERABLES Performing Organization Address City/State/ZIP Code Phon e Number [facility] [address] [place] [address] Lamotrigine Level (05/17/2021 8:03 AM CDT) athologist Signature Lamotrigine 2.6 2.5 - 15.0 05/19/2021 [facility] Level ug/mL 8:46 PM CDT [facility] Comment: (Note) INTERPRETIVE INFORMATION: ??Lamotrigine Therapeutic Range: ??2.5-15.0 ug/mL ? Toxic: ??Not well establ ished Pharmacokinetics varies widely, particul becki with co-medications and/or compromised renal function. ??Adverse effects may include dizziness, somnolenc e, nausea and vomiting. Performed By: [employer] [address] [place] [id number] Digital Marketing Project Manager: Florence Naranjo MD Specimen Anatomical Collection Method Collection Time Receive d Time (Source) Location / / Volume Laterality Blood 05/17/2021 8:03 AM 8:04 CDT AM CDT Aydee Nam APRN FOOD AND BEVERAGE CASHIER LAB - BLOOD ORDERABLES Performing Organization Address City/[facility]/ZIP Code Phon e Number [facility] [address] [place] [phone] (ABNORMAL) Vitamin D Deficiency (05/17/2021 8:03 AM CDT) athologist Signature Vitamin D 17 (L) 20 - 75 05/17/2021 [facility] ug/L 5:49 PM CDT [facility] Comment: Season, race, dietary intake, and treatm ent affect the concentration of 84-hixmgxw-Zkmdmzb D. Values may decreas e during winter months and increase during summer months. Values 20-29 ug/L may indicate Vitamin D insufficiency and values <20 ug/L may indicate Vitamin D deficiency. Vitamin D determination is routinely per formed by an immunoassay specific for 25 hydroxyvitamin D3. ??If an individual is on vitamin D2 (ergocalciferol) supplementation, please specify 25 [place] vi tamin D2 and D3 level determination by LCMSMS test VITD23. Specimen Anatomical Collection Method Collection Time Receive d Time (Source) Location / / Volume Laterality Blood 05/17/2021 8:03 AM 8:04 CDT AM CDT Aydee Nam APRN FOOD AND BEVERAGE CASHIER LAB - BLOOD ORDERABLES Performing Organization Address City/State/ZIP Code Phon e Number [address] (ABNORMAL) Comprehensive metabolic panel (BMP + Alb, Alk Phos, ALT, AST, Total. Bili, TP) (05/17/2021 8:03 AM CDT) athologist Signature Sodium 139 133 - 144 05/17/2021 [facility] mmol/L 1:[address] [facility] Potassium 3.6 3.4 - 5.3 05/17/2021 [facility] mmol/L 1:[address] [facility] Chloride 107 94 - 109 05/17/2021 [facility] mmol/L 1:[address] [facility] Carbon Dioxide 26 20 - 32 05/17/2021 [facility] mmol/L 1:[address] [facility] Anion Gap 6 3 - 14 05/17/2021 [facility] mmol/L 1:[address] [facility] Glucose 95 70 - 99 05/17/2021 [facility] mg/dL 1:[address] [facility] Comment: Fasting specimen Urea Nitrogen 12 7 - 30 mg/dL 05/17/2021 1:[address] [facility] Creatinine 0.77 0.52 - 1.04 mg/dL 05/17/2021 1:[address] [facility] GFR Estimate >90 >60 05/17/2021 1:26 PM CDT [facility] mL/min/{1.73_m2} [facility] Comment: Non GFR Calc Starting 10/30/2018, serum creatinine ba sed estimated GFR (eGFR) will be calculated using the Chronic Kidney Dise [facility] Epidemiology Collaboration (CKD-EPI) equation. GFR Estimate If >90 >60 mL/min/{1.73_m2} 05/17/2021 1: 26 PM [facility] Black T [facility] Comment: GFR Calc Starting 10/30/2018, serum creatinine ba sed estimated GFR (eGFR) will be calculated using the Chronic Kidney Dise ase Epidemiology Collaboration (CKD-EPI) equation. Calcium 8.8 8.5 - 10.1 05/17/2021 1:26 PM [facility] mg/dL [facility] Bilirubin Total 0.5 0.2 - 1.3 05/17/2021 1:33 PM [facility] [place] mg/dL [facility] Albumin 3.6 3.4 - 5.0 g/dL 05/17/2021 1:33 PM [facility] EW [facility] Protein Total 6.9 6.8 - 8.8 g/dL 05/17/2021 1:33 PM [facility] Alkaline Phosphatase 112 40 - 150 U/L 05/17/2021 1:33 PM [facility] ALT 136 (H) 0 - 50 U/L 05/17/2021 1:33 PM [facility] AST 47 (H) 0 - 45 U/L 05/17/2021 1:33 PM [facility] Specimen Anatomical Collection Method Collection Time Receive d Time (Source) Location / / Volume Laterality Blood 05/17/2021 8:03 AM 8:04 CDT AM CDT Aydee Nam APRN FOOD AND BEVERAGE CASHIER LAB - BLOOD ORDERABLES Performing Organization Address City/State/ZIP Code Phon e Number [facility] [address] [address] [phone] [place] [address] [place], [place] [address] [facility] [address] [place] [address], [place] [phone] (ABNORMAL) Lipid panel reflex to direct LDL Fasting (05/17/2021 8:03 AM CDT) athologist Signature Cholesterol 251 (H) <200 mg/dL 05/17/2021 [facility] 1:33 PM T [facility] Comment: Desirable: <200 mg/dl Triglycerides 141 <150 mg/dL 05/17/2021 1:[address] [facility] Comment: Fasting specimen HDL Cholesterol 65 >49 mg/dL 05/17/2021 1:34 PM [facility] LDL Cholesterol 158 (H) <100 mg/dL 05/17/2021 1:35 PM [facility] Comment: Above desirable: ??100-129 mg/dl Borderline High: ??130-159 mg/dL High: ? 160-189 mg/dL Very high: ? >189 mg/dl Non HDL Cholesterol 186 (H) <130 mg/dL 05/17/2021 1:34 PM [facility] Comment: Above Desirable: ??130-159 mg/dl Borderline high: ??160-189 mg/dl High: ? 190-219 mg/dl Very high: ? >219 mg/dl Specimen Anatomical Collection Method Collection Time Receive d Time (Source) Location / / Volume Laterality Blood 05/17/2021 8:03 AM 8:04 CDT AM CDT Aydee Nam APRN FOOD AND BEVERAGE CASHIER LAB - BLOOD ORDERABLES Performing Organization Address City/State/ZIP Code Phon e Number [facility] [address] [place], [place] [address] [facility] [address] [place] [address], [place] [phone] TSH with free T4 reflex (05/17/2021 8:03 AM CDT) athologist Signature TSH 1.65 0.40 - 4.00 05/17/2021 [facility] mU/L 1:[address] [facility] Specimen Anatomical Collection Method Collection Time Receive d Time (Source) Location / / Volume Laterality Blood 05/17/2021 8:03 AM 8:04 CDT AM CDT Aydee Nam APRN, CNP LAB - BLOOD ORDERABLES Performing Organization Address City/State/ZIP Code Phon e Number [facility] [address] [place] [address] ESR: Erythrocyte sedimentation rate (05/17/2021 8:03 AM CDT) athologist Signature Sed Rate 9 0 - 20 mm/h 05/17/2021 [facility] 8:17 AM CDT [facility] [facility] Specimen Anatomical Collection Method Collection Time Receive d Time (Source) Location / / Volume Laterality Blood 05/17/2021 8:03 AM 8:04 CDT AM CDT Aydee Nam APRN, CNP LAB - BLOOD ORDERABLES Performing Organization Address City/[facility]/ZIP Code Phon e Number [facility] [address] [place] [address] [phone] CRP, inflammation (05/17/2021 8:03 AM CDT) Analysis Performed At Patho logist Time Signature CRP Inflammation <2.9 0.0 - 8.0 05/17/2021 [place] [facility] F mg/L 2:17 PM CDT [facility] Specimen Anatomical Collection Method Collection Time Receive d Time (Source) Location / / Volume Laterality Blood 05/17/2021 8:03 AM 8:04 CDT AM CDT Aydee Nam APRN, CNP LAB - BLOOD ORDERABLES Performing Organization Address City/State/ZIP Code Phon e Number [facility] [address] [place] [address] [facility] CBC with platelets and differential (05/17/2021 8:03 AM CDT) [facility] gist Method Time Signature WBC 5.2 4.0 - 05/17/2021 [facility] 11.0 8:14 AM CDT CLINICS 10e9/L [place] RBC Count 4.10 3.8 - 5.2 05/17/2021 [facility] 10e12/L 8:14 AM CDT [facility] [place] Hemoglobin 12.9 11.7 - 05/17/2021 [facility] 15.7 g/dL 8:14 AM CDT [facility] [place] Hematocrit 38.7 35.0 - 05/17/2021 [facility] 47.0 % 8:14 AM CDT [facility] [place] MCV 94 78 - 100 05/17/2021 [facility] [place] 8:14 AM CDT [facility] [place] MCH 31.5 26.5 - 05/17/2021 [facility] 33.0 pg 8:14 AM CDT [facility] [place] MCHC 33.3 31.5 - 05/17/2021 [facility] 36.5 g/dL 8:14 AM CDT [facility] [place] RDW 12.3 10.0 - 05/17/2021 [facility] 15.0 % 8:14 AM CDT [facility] [place] Platelet Count 277 150 - 450 05/17/2021 [facility] 10e9/L 8:14 AM CDT [facility] [place] % Neutrophils 61.1 % 05/17/2021 [facility] 8:14 AM CDT [facility] [place] % Lymphocytes 26.2 % 05/17/2021 [facility] 8:14 AM CDT [facility] [place] % Monocytes 10.0 % 05/17/2021 [facility] 8:14 AM CDT [facility] [place] % Eosinophils 1.9 % 05/17/2021 [facility] 8:14 AM CDT [facility] [place] % Basophils 0.8 % 05/17/2021 [facility] 8:14 AM CDT [facility] [place] Absolute 3.2 1.6 - 8.3 05/17/2021 [facility] Neutrophil 10e9/L 8:14 AM CDT [facility] [place] Absolute 1.4 0.8 - 5.3 05/17/2021 [facility] Lymphocytes 10e9/L 8:14 AM CDT [facility] [place] Absolute 0.5 0.0 - 1.3 05/17/2021 [facility] Monocytes 10e9/L 8:14 AM CDT [facility] [place] Absolute 0.1 0.0 - 0.7 05/17/2021 [facility] Eosinophils 10e9/L 8:14 AM CDT [facility] [place] Absolute 0.0 0.0 - 0.2 05/17/2021 [facility] Basophils 10e9/L 8:14 AM CDT [facility] [place] Diff Method Automated 05/17/2021 [place] Method 8:14 AM CDT [facility] [place] Specimen Anatomical Collection Method Collection Time Receive d Time (Source) Location / / Volume Laterality Blood 05/17/2021 8:03 AM 8:04 CDT AM CDT Aydee Nam APRN, CNP LAB - BLOOD ORDERABLES Performing Organization Address City/State/ZIP Code Phon e Number [address] [address] EKG 12-lead complete w/read - Clinics (05/17/2021 7:43 AM CDT) Narrative This result has an attachment that is no t available. Aydee Nam APRN, CNP ECG ORDERABLES documented in this encounter Visit Diagnoses Diagnosis Abnormal thyroid ultrasound - Primary Nonspecific abnormal results of thyroid function study Excessive sweating Generalized hyperhidrosis Other fatigue Neck pain Cervicalgia Palpitations Anxiety Anxiety state, unspecified Depression, unspecified depression type PTSD (post-traumatic stress disorder) Posttraumatic stress disorder Bilateral occipital neuralgia Other syndromes affecting cervical regio n Encounter for screening for HIV Need for hepatitis C screening test Special screening examination for other specified viral diseases Screening for hyperlipidemia Screening for lipoid disorders Elevated LFTs Other abnormal blood chemistry Neck pain Cervicalgia Lipoma of skin and subcutaneous tissue Lipoma of other skin and subcutaneous ti ssue documented in this encounter Care Teams Unit Leader Relationship Specialty Start Date End Date Aydee Nam, PCP - General Nurse Practitioner - 05/17/21 COMPUTER GRAPHICS ILLUSTRATORValerio KOO Family [address] [place], [place] [phone] Aydee Nam, Assigned PCP 04/28/21 ELADIO KOO [facility] [place], [place] [phone] documented as of this encounter
--- OUTSIDE RECORDS SUMMARY | 2022-09-21 04:19 | XMS_ITS | Encounter Summary ---
:1980 Author Organization [facility] Address [address] [place] [address] Care Team Providers Name Role Phone Aydee Burton APRN FRONT COUNTER CLERK Primary Care Provider [phone] Aydee Burton APRN FRONT COUNTER CLERK Unavailable [phone] Reason for Visit Diagnostic Imaging XR (Routine) - Closed Specialty Diagnoses / Procedures Referred By Contact Refer red To Contact Diagnoses Neck pain Aydee Burton APRN Procedures XR Cervical Spine 2/3 Views FRONT COUNTER CLERK [address] [place] [address] Referral ID Status Reason Start Date Expiration Date Visits Requ ested Visits Authorized [id number] Closed 05/17/2021 05/17/2022 1 1 Encounter Details Date Type Department Care Team Description 05/17/2021 Ancillary Procedure [facility] Aydee Burton pain Clinic [place] ELADIO Mendez FRONT COUNTER CLERK [address] [address] [place], [place] [phone] (Wo rk) [id number] [phone] Social History Tobacco Use Types Packs/Day Years [...] How often do you attend alevism or hinduism services? 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/2021 7:53 PM BRANCH STORE MANAGER COVID-19 Exposure Response Date Recorded In the last month, have you been in contact with No / Unsure 05/17/2021 7:03 AM CDT someone who was confirmed or suspected to have Coronavirus / COVID-19? documented as of this encounter Miscellaneous Notes Result Encounter Note - Aydee Burton APRN FRONT COUNTER CLERK - 05/17/2021 7:45 AM CDT Dear Marta, Here is a summary of your recent test results: Your neck x-ray looks good just a muscle spasm noted otherwise normal. You could have dane your neck in your fall. Lets see what labs show and then we can decide about further plan of care. I would also be glad to send you to physical therapy for your neck or an seafood specialist if you would like just let me know. For additional lab test information, [email or web address] is an excellent reference. In addition, here is a list of due or overdue Health Maintenance reminders: Preventive Care Visit Never done ANNUAL REVIEW OF HM ORDERS Never done Discuss Advance Care Planning Never done Depression Action Plan Never done Depression Assessment Never done PAP Smear Never done Diptheria Tetanus Pertussis (DTAP/TDAP/TD) Vaccine(1 - Tdap) Never done Please call us at [phone] (or use [employer]) to address the above recommendations if needed. Thank you for choosing [facility]. It was an honor and a privilege to participate in your care. Healthy regards, TARA Spivey [facility] documented in this encounter Plan of Treatment Upcoming Encounters Date Type Specialty Care Team Description 09/26/2022 Appointment Speech Therapy Obdulio Barrera MD [address] [facility] 276 [place], [place] [phone] Anabel Chew, FRUIT HARVESTER MACHINE OPERATOR [facility] [address] [facility] 396 [place] [address] 09/27/2022 Therapy Visit Physical Therapy Luisana Watkins, PT [address] [place] [address] 09/29/2022 Virtual Visit Pain & Palliative Marilia Deluna, [facility] PhD [address] [place], [place] [address] 09/30/2022 Office Visit Family Practice Aydee Burton APRN FRONT COUNTER CLERK [address] [place] [phone] 10/03/2022 Therapy Visit Physical Therapy Una Reardon, PT [address] [place] [phone] 10/10/2022 Hospital Encounter Surgery Lesly Celaya MD [address] [place], [place] [address] 10/10/2022 Office Visit Surgery Lesly Celaya MD [address] [place] [address] Ninoska Flowers, PA-C [address] [place] [address] 10/10/2022 Surgery Surgery Lesly Celaya, EXCISION, MASSES - MD back, abdomen, [address] [place] [address] 10/11/2022 Virtual Visit Pharm Bryce Ruiz, Clari Banks, [place] [phone] [address] [phone] 10/14/2022 Appointment Speech Therapy Anabel Chew, FRUIT HARVESTER MACHINE OPERATOR [address] [phone] 10/21/2022 Office Visit Pulmonology Obdulio Barrera MD [address] [place] [address] 276 [place], [place] [address] 10/25/2022 PRE VISIT ENT Charo Burton MD Previsit [address] [place] [address] [phone] 10/25/2022 Office Visit Charo Carter MD [address] [place] [address] [phone] 10/25/2022 Office Visit ENT Provider, Ent Dysphonia Memorandum Statement Clerk 10/28/2022 Appointment Speech Therapy Anabel Chew, FRUIT HARVESTER MACHINE OPERATOR [address] [phone] 11/17/2022 Appointment Speech Therapy Anabel Chew, FRUIT HARVESTER MACHINE OPERATOR [address] [place], [place] [address] 12/23/2022 Office Visit Neurology Colby Yeung MD [address] [place] [address] Scheduled Procedures Name Priority Associated Diagnoses Date/Time EXCISION, MASS, TORSO Lipoma of skin and subcuta neous 10/10/2022 7:30 AM BRANCH STORE MANAGER tissue documented as of this encounter Procedures Procedure Name Priority Date/Time Associated Diagnosis Comme nts XR CERVICAL SPINE Routine 05/17/2021 8:12 AM Neck pain Resu lts for this 2/3 VIEWS CDT procedure are i n the results section. documented in this encounter Results XR Cervical Spine 2/3 Views (05/17/2021 8:12 AM CDT) Anatomical Region Laterality Modality Spine Computed Radiography Specimen (Source) Anatomical Location Collection Method / Collectio n Time Received Time / Laterality Volume Impressions 05/17/2021 9:24 AM CDT IMPRESSION: There is some rlgw-ih-lsoqpwve cervical kyphosis centered on the C4-C5 level which could be positi onal or due to some muscle spasm. Posterior alignment is otherwise normal. Vertebral body heights are maintained. Soft tissues are unremar kable. ARON CAPPS MD SYSTEM ID: ??[id number] Narrative 05/17/2021 9:24 AM CDT CERVICAL SPINE THREE VIEWS ??05/17/2021 8:12 AM HISTORY: Neck pain. COMPARISON: None. Procedure Note Aron Capps MD - 05/17/2021Form atting of this note might be different from the original. CERVICAL SPINE THREE VIEWS 05/17/2021 8:12 AM HISTORY: Neck pain. COMPARISON: None. IMPRESSION: There is some hcue-pi-dknwym te cervical kyphosis centered on the C4-C5 level which could be positi onal or due to some muscle spasm. Posterior alignment is otherwise normal. Vertebral body heights are maintained. Soft tissues are unremar kable. ARON CAPPS MD SYSTEM ID: [id number] Aydee Burton TENNIS COACH FRONT COUNTER CLERK IMG DIAGNOSTIC IMAGING O RDERABLES documented in this encounter Visit Diagnoses Diagnosis Neck pain Cervicalgia Lipoma of skin and subcutaneous tissue Lipoma of other skin and subcutaneous ti ssue documented in this encounter Care Teams Marble Polisher Relationship Specialty Start Date End Date Aydee Burton, PCP - General Nurse Practitioner - 05/17/21 TENNIS COACH FRONT COUNTER CLERK [facility] [address] [place] [address] Aydee Burton, Assigned PCP 04/28/21 TENNIS COACH [address] [address] documented as of this encounter
--- OUTSIDE RECORDS SUMMARY | 2022-09-21 04:19 | XMS_ITS | Encounter Summary ---
:1980 Author Organization [facility] Address [address] [facility] [place] [address] Care Team Providers Name Role Phone Aydee Burton APRN, CNP Primary Care Provider [phone] Aydee Burton APRN CARE TECHNICIAN Unavailable [phone] Reason for Referral Rehab Therapy Physical Therapy (Routine) - Closed Specialty Diagnoses / Procedures Referred By Contact Refer red To Contact Diagnoses Neck pain Aydee Burton APRN [address] [phone] Referral ID Status Reason Start Date Expiration Date Visits Requ ested Visits Authorized [id number] Closed 05/21/2021 05/21/2022 1 1 Reason for Visit Reason Onset Date Comments Patient Request 05/21/2021 Encounter Details Date Type Department Care Team Description 05/21/2021 Telephone [facility] Aydee Burton, Patient Request [place] ELADIO [address] [address] [place], [place] [phone] (Wo rk) [phone] [phone] Social History Tobacco Use Types Packs/Day Years [...] How often do you attend gnosticism or zoroastrianism services? Never 08/05/2021 Do you [...] at Date Recorded Female 11/09/2021 7:53 PM INCUBATOR TENDER COVID-19 Exposure Response Date Recorded In the last month, have you been in contact with No / Unsure 05/17/2021 7:03 AM CDT someone who was confirmed or suspected to have Coronavirus / COVID-19? documented as of this encounter Miscellaneous Notes Telephone Encounter - Abril Castaneda RN - 05/24/2021 3:42 PM CDT Called and spoke to patient. Informed her of provider's recommendations. She works all day and is not able to apply ice while working, but can do it at the end of the day. Patient stated an understanding and agreed with plan, number given for physical therapy. Has physical set up for 06/11. Abril Castaneda RN [facility] Telephone Encounter - Aydee Burton APRN CNP - 05/21/2021 1:24 PM CDT Images from the original note were not included. I think its reasonable to start PT. Will send referral for PT. They should be calling her. If you have not heard from the scheduling office within 2 business days, please call [phone] for all locations, There is a OTC Voltaren or salonpas topical diclofenac cream that can be placed topically that can work really well. I would also suggest ice to the area. I would encourage her to follow up on her neck and and also set up for yearly physical exam. TARA Spivey- Telephone Encounter - Shantanu Olguin RN - 05/21/2021 12:51 PM CDT Pt called and we reviewed note from provider regarding labs, ultrasound and recommendations. Also copied to her [employer] account Pt verbalizes understanding. Pt was asking this nurse to please ask provider what more recommendations she can give her regardingher face and neck pain? She has seen provider regarding this. Right now she's currently taking Gabapentin/Tylenol/Ibuprofen. Provider wants her to limit her tylenol intake due to abnormal liver values. Pt says she uses heat wraps. Asking for recommendations on what else she can take? Please advise. Last minute note she states her dad has colon polyps which was just found yesterday on colonoscopy and wanted this mentioned in her family history for future colonoscopy referral. Thanks documented in this encounter Plan of Treatment Upcoming Encounters Date Type Specialty Care Team Description 09/26/2022 Appointment Speech Therapy Obdulio Barrera MD [address] [place] [address] Anabel Chew, POLICE DISTRICT SWITCHBOARD OPERATOR [facility] [address] [facility] 396 [place], [place] [address] 09/27/2022 Therapy Visit Physical Therapy Luisana Watkins, PT [address] [place] [address] 09/29/2022 Virtual Visit Pain & Palliative Marilia Deluna, [facility] PhD [address] [place], [place] [address] 09/30/2022 Office Visit Family Practice Aydee Burton, FOSTER CARE CASE MANAGER CARE TECHNICIAN [address] [place] [address] 10/03/2022 Therapy Visit Physical Therapy Una Reardon, PT [address] [place] [address] 10/10/2022 Hospital Encounter Surgery Lesly Celaya MD [address] [place] [address] 10/10/2022 Office Visit Surgery Lesly Celaya MD [address] [place], [place] [phone] Ninoska Flowers PA-C [address] [place], [place] [phone] 10/10/2022 Surgery Surgery Lesly Celaya, EXCISION, MASSES - MD back, abdomen, [address] right lower [facility] [place] [address] 10/11/2022 Virtual Visit Clari Su, [facility] [address] [phone] 10/14/2022 Appointment Speech Therapy Anabel Chew, POLICE DISTRICT SWITCHBOARD OPERATOR [address] [address] 10/21/2022 Office Visit Pulmonology Obdulio Barrera MD [address] [place] [phone] 10/25/2022 PRE VISIT ENT Charo Burton MD Previsit [address] [place] [phone] 10/25/2022 Office Visit ENT Charo Burton MD [address] [place] [phone] 10/25/2022 Office Visit ENT Provider, Ent Dysphonia Sample Taker Operator 10/28/2022 Appointment Speech Therapy Anabel Chew, POLICE DISTRICT SWITCHBOARD OPERATOR [address] [address] 11/17/2022 Appointment Speech Therapy Anabel Chew POLICE DISTRICT SWITCHBOARD OPERATOR [address] [address] 12/23/2022 Office Visit Neurology Colby Yeung MD [address] [place] [address] Scheduled Procedures Name Priority Associated Diagnoses Date/Time EXCISION, MASS, TORSO Lipoma of skin and subcuta neous 10/10/2022 7:30 AM INCUBATOR TENDER tissue Scheduled Referrals Name Type Priority Associated Diagnoses Order S chedule PHYSICAL THERAPY Referral Routine Neck pain Expected: 0 05/21/2021, REFERRAL Expires: 2021 documented as of this encounter Visit Diagnoses Diagnosis Neck pain - Primary Cervicalgia Lipoma of skin and subcutaneous tissue Lipoma of other skin and subcutaneous ti ssue documented in this encounter Care Teams Customer Relations Advisor Relationship Specialty Start Date End Date Aydee Burton, PCP - General Nurse Practitioner - 05/17/21 FOSTER CARE CASE MANAGER CARE TECHNICIAN Family [address] [place] [phone] Aydee Burton, Assigned PCP 04/28/21 FOSTER CARE CASE MANAGER [address] [address] documented as of this encounter
--- OUTSIDE RECORDS SUMMARY | 2022-09-21 04:19 | XMS_ITS | Encounter Summary ---
:1980 Author Organization [facility] Address [address] [place] [address] Care Team Providers Name Role Phone Aydee Burton APRN, CNP Primary Care Provider [phone] Aydee Burton APRN BILLING SPECIALIST Unavailable [phone] Encounter Details Date Type Department Care Team Description 05/28/2021 Travel Social History Tobacco Use Types Packs/Day [...] How often do you attend restorationism or sabianism services? Never 08/05/2021 Do you [...] at Date Recorded Female 11/09/2021 7:53 PM CIRCULAR TANK COOPER COVID-19 Exposure Response Date Recorded In the last month, have you been in contact with No / Unsure 05/28/2021 12:01 PM CDT someone who was confirmed or suspected to have Coronavirus / COVID-19? documented as of this encounter Plan of Treatment Upcoming Encounters Date Type Specialty Care Team Description 09/26/2022 Appointment Speech Therapy Obdulio Barrera MD [address] [facility] 276 [place], [place] [phone] Anabel Chew, COUNSELOR SUPERVISOR [address] [place], [place] [address] 09/27/2022 Therapy Visit Physical Therapy Luisana Watkins, PT [address] [place] [address] 09/29/2022 Virtual Visit Pain & Palliative Marilia Deluna, Ronald PhD [address] [place] [address] 09/30/2022 Office Visit Family Practice Aydee Burton, ACCOUNT SERVICES MANAGER BILLING SPECIALIST [address] [place], [place] [address] 10/03/2022 Therapy Visit Physical Therapy Una Reardon, PT [address] [place] [address] 10/10/2022 Hospital Encounter Surgery Lesly Celaya MD [address] [place], [place] [address] 10/10/2022 Office Visit Surgery Lesly Celaya MD [address] [place], [place] [address] Ninoska Flowers, FLORES-C [address] [place], [place] [phone] 10/10/2022 Surgery Surgery Lesly Celaya, EXCISION, MASSES - MD back, abdomen, [address] [place] [address] 10/11/2022 Virtual Visit Clari Su, [place] [address] [address] [address] 10/14/2022 Appointment Speech Therapy Anabel Chew, COUNSELOR SUPERVISOR [address] [address] 10/21/2022 Office Visit Pulmonology Obdulio Barrera MD [address] [place] [address] 276 [place], [place] [address] 10/25/2022 PRE VISIT ENT Charo Burton MD Previsit [address] [place] [address] [phone] 10/25/2022 Office Visit Charo Carter MD [address] [place] [phone] 10/25/2022 Office Visit ENT Provider, Jeannette Ent Dysphonia Commercial Specialist 10/28/2022 Appointment Speech Therapy Anabel Chew, COUNSELOR SUPERVISOR [address] [address] 11/17/2022 Appointment Speech Therapy Anabel Chew, COUNSELOR SUPERVISOR [address] [place] [address] 12/23/2022 Office Visit Neurology Colby Yeung MD [address] [address] Scheduled Procedures Name Priority Associated Diagnoses Date/Time EXCISION, MASS, TORSO Lipoma of skin and subcuta neous 10/10/2022 7:30 AM CIRCULAR TANK COOPER tissue documented as of this encounter Visit Diagnoses Not on filedocumented in this encounter Additional Health Concerns Assessment Noted Time PHQ-9 Depression Total Score: 16 05/28/2021 2:58 PM CD T documented as of this encounter Care Teams Director Family Relationship Specialty Start Date End Date Aydee Burton, PCP - General Nurse Practitioner - 05/17/21 ACCOUNT SERVICES MANAGER BILLING SPECIALIST Family [address] [place] [phone] Aydee Burton, Assigned PCP 04/28/21 ACCOUNT SERVICES MANAGER [facility] [address] [place], [place] [address] documented as of this encounter
--- OUTSIDE RECORDS SUMMARY | 2022-09-21 04:19 | XMS_ITS | Encounter Summary ---
:1980 Author Organization [place] Address [address] [place] [address] Care Team Providers Name Role Phone Aydee Burton APRN SUGAR PLANTATION MANAGER Primary Care Provider [phone] Aydee Burton APRN SUGAR PLANTATION MANAGER Unavailable [phone] Reason for Visit Reason Comments UTI Encounter Details Date Type Department Care Team Description 05/26/2021 Virtual Visit [employer] Arvin Wheeler otoe-missouria cystitis without hematuria (Primary Dx); [facility] Candidiasis of vagina [address] [place] [address] 5 [phone] Social History Tobacco Use Types Packs/Day Years [...] How often do you attend denominational or mosque services? Never 08/05/2021 Do you [...] at Date Recorded Female 11/09/2021 7:53 PM BULLET SLUG CASTING MACHINE OPERATOR COVID-19 Exposure Response Date Recorded In the last month, have you been in contact with No / Unsure 05/24/2021 8:25 PM CDT someone who was confirmed or suspected to have Coronavirus / COVID-19? documented as of this encounter Progress Notes Arvin Wheeler Jr., MD - 05/26/2021 2:00 PM CDT Marta is a 41 year old who is being evaluated via a billable video visit. How would you like to obtain your AVS? MyChart If the video visit is dropped, the invitation should be resent by: Text to cell phone: [phone] Will anyone else be joining your video visit? No Video Start Time: 2:43pm Assessment & Plan Acute cystitis without hematuria Encouraged her to contact [facility] lab to get results of culture and sensitivities. If sensitive to ciprofloxacin, I imagine she will start to feel better by tomorrow. Cautioned if fever, flank pain she should be seen again urgently to rule out pyelonephritis. Candidiasis of vagina Likely the cause of her vaginal itching. Will empirically treat with antifungal. Follow up if symptoms not improving in 5 days. - fluconazole (DIFLUCAN) 150 MG tablet; Take 1 tablet (150 mg) by mouth once for 1 dose BMI: Estimated body mass index is 32.39 kg/m?? as calculated from the following: Height as of 05/17/21: 1.702 m (5' 7). Weight as of 05/17/21: 93.8 kg (206 lb 12.8 oz). Return in about 5 days (around 05/31/2021), or if symptoms worsen or fail to improve. Arvin Wheeler Jr, MD [facility] Arturo Lozano is a 41 year old who presents for the following health issues HPI ED/UC Followup: Facility: [facility] Date of visit: 05/24/2021 Reason for visit: UTI Current Status: Starting to feel better but still really uncomfortable - still hasn't been able to go to work. Still feeling a little pressure and uncomfortable in her lower abdomen and back. Was having some lower chest/epigastric pain yesterday that has now resolved. Was put on Cipro 500 mg BID for five days as well as pyridium for two days. Notes that urinary frequency and urgency symptoms have improved. Review of Systems Constitutional, HEENT, cardiovascular, pulmonary, [...] Type of service: Video Visit Video End Time:2:57 PM Originating Location (pt. Location): Home Distant Location (provider location): [facility] Platform used for Video Visit: Becka documented in this encounter Plan of Treatment Upcoming Encounters Date Type Specialty Care Team Description 09/26/2022 Appointment Speech Therapy Obdulio Barrera MD [address] [address] Anabel Chew, SENIOR PAYROLL MANAGER [address] [place] [address] 09/27/2022 Therapy Visit Physical Therapy Luisana Watkins, PT [address] [place] [address] 09/29/2022 Virtual Visit Pain & Palliative Marilia Deluna, Care PhD [address] [place] [address] 09/30/2022 Office Visit Family Practice Aydee Burton, FILLING LAYER UP SUGAR PLANTATION MANAGER [address] [place] [address] 10/03/2022 Therapy Visit Physical Therapy Una Reardon, PT [address] [place] [phone] 10/10/2022 Hospital Encounter Surgery Lesly Celaya MD [address] [place], [place] [address] 10/10/2022 Office Visit Surgery Lesly Celaya MD [address] [place] [address] Ninoska Flowers PA-C [address] [place] [address] 10/10/2022 Surgery Surgery Lesly Celaya, EXCISION, MASSES - MD back, abdomen, [address] right lower BL extremity [place], [place] [address] 10/11/2022 Virtual Visit Cara RuizClari, [facility] [address] [place] [address] 10/14/2022 Appointment Speech Therapy Anabel Chew, SENIOR PAYROLL MANAGER [address] [address] 10/21/2022 Office Visit Pulmonology Obdulio Barrera MD [address] 265525 10/25/2022 PRE VISIT ENT Charo Burton MD Previsit [address] [place] [address] 936575 10/25/2022 Office Visit ENT Charo Burton MD 909 [place], [place] 438805 10/25/2022 Office Visit ENT Provider, Ent Dysphonia Reheater 10/28/2022 Appointment Speech Therapy Anabel Chew, SENIOR PAYROLL MANAGER [address] 366555 11/17/2022 Appointment Speech Therapy Anabel Chew, SENIOR PAYROLL MANAGER [address] [address] 12/23/2022 Office Visit Neurology Colby Yeung MD [address] [id number] Scheduled Procedures Name Priority Associated Diagnoses Date/Time EXCISION, MASS, TORSO Lipoma of skin and subcuta neous 10/10/2022 7:30 AM BULLET SLUG CASTING MACHINE OPERATOR tissue documented as of this encounter Visit Diagnoses Diagnosis Acute cystitis without hematuria - Prima ry Acute cystitis Candidiasis of vagina Candidiasis of vulva and vagina Lipoma of skin and subcutaneous tissue Lipoma of other skin and subcutaneous ti ssue documented in this encounter Care Teams Tufter Hand Relationship Specialty Start Date End Date Aydee Burton, PCP - General Nurse Practitioner - 05/17/21 FILLING LAYER UP SUGAR PLANTATION MANAGER Family [address] [place] [address] 193312 Aydee Bruton, Assigned PCP 04/28/21 FILLING LAYER UP [address] 340892 documented as of this encounter
--- OUTSIDE RECORDS SUMMARY | 2022-09-21 04:19 | XMS_ITS | Encounter Summary ---
:1980 Author Organization [place] Address [address] [place] [address] Care Team Providers Name Role Phone Aydee Burton PHOTOGRAPHIC LABORATORY SUPERVISOR METAL SANDER Primary Care Provider [phone] Aydee Burton PHOTOGRAPHIC LABORATORY SUPERVISOR METAL SANDER Unavailable [phone] Louisa Hood PHOTOGRAPHIC LABORATORY SUPERVISOR METAL SANDER Unavailable [phone] Se Levy [facility] Unavailable Unavailable Anny Bernabe Unavailable Unavailable Clari Ruiz [facility] Unavailable [phone] Angel Hannah MD Unavailable Lesly Celaya MD Unavailable Elizabeth Mcintyre [facility] Unavailable Tawana Patel MA Unavailable Unavailable Ramses Mcpherson MD Unavailable [phone] Marleny Maloney Unavailable Unavailable Obdulio Barrera MD Unavailable [phone] Obdulio Barrera MD Unavailable [phone] Lesvia Stanley Unavailable Marilia Deluna PhD Unavailable Niyah Decker [facility] Unavailable VirgilioClari [facility] Unavailable JadenLesvian Unavailable Clari Ruiz Jocelyn [facility] Unavailable Niyah Warner RN Unavailable Delia Avila [facility] Unavailable [phone] Delia Avila [facility] Unavailable [phone] Niyah Decker [facility] Unavailable Jamison Mago Terri [facility] Unavailable Niyah Decker [facility] Unavailable Leela Jarvis [facility] Unavailable SchwNiyah gleason [facility] Unavailable Encounter Details Date Type Department Care Team Description 01/21/2021 External Order [facility] Outside, Provide r Results Molecular Diagnostic [address] [address] Social History Tobacco Use Types Packs/Day Years [...] How often do you attend baptism or lutheran services? Never 08/05/2021 Do you [...] at Date Recorded Female 11/09/2021 7:53 PM DIE DEVELOPER documented as of this encounter Plan of Treatment Upcoming Encounters Date Type Specialty Care Team Description 09/26/2022 Appointment Speech Therapy Obdulio Barrera MD 420 [facility] 276 [place] [address] Anabel hCew, TRANSPORTATION MECHANIC [address] [place], [place] [address] 09/27/2022 Therapy Visit Physical Therapy Luisana Watkins, PT [address] [place] [address] 09/29/2022 Virtual Visit Pain & Palliative Marilia Deluna, [facility] PhD [address] [place], [place] [address] 09/30/2022 Office Visit Family Practice Aydee Burton, PHOTOGRAPHIC LABORATORY SUPERVISOR METAL SANDER [address] [place] [address] [phone] 10/03/2022 Therapy Visit Physical Therapy Una Reardon, PT [address] [place] [phone] 10/10/2022 Hospital Encounter Surgery Lesly Celaya MD [address] [place], [place] [phone] 10/10/2022 Office Visit Surgery Lesly Celaya MD [address] [place], [place] [phone] Ninoska Flowers, FLORES-C [address] [place], [place] [phone] 10/10/2022 Surgery Surgery Lesly Celaya, EXCISION, MASSES - MD back, abdomen, [address] extremity [place], [place] [phone] 10/11/2022 Virtual Visit Pharm Clari Stoll, [facility] [address] [phone] [place], [place] [address] 10/14/2022 Appointment Speech Therapy Anabel Chew, TRANSPORTATION MECHANIC [address] 022545 10/21/2022 Office Visit Pulmonology Obdulio Barrera MD 420 [facility] 276 [place], [place] [address] 10/25/2022 PRE VISIT ENT Charo Burton MD Previsit [address] [place] [address] 069155 10/25/2022 Office Visit Charo Carter MD [address] [place] [address] 312615 10/25/2022 Office Visit ENT Provider, Jeannette Ent Dysphonia Rn Placement 10/28/2022 Appointment Speech Therapy Anabel Chew, TRANSPORTATION MECHANIC [address] 803235 11/17/2022 Appointment Speech Therapy Anabel Chew, TRANSPORTATION MECHANIC [address] 794125 12/23/2022 Office Visit Neurology Colby Yeung MD [address] [id number] Scheduled Procedures Name Priority Associated Diagnoses Date/Time EXCISION, MASS, TORSO Lipoma of skin and subcuta neous 10/10/2022 7:30 AM DIE DEVELOPER tissue documented as of this encounter Visit Diagnoses Not on filedocumented in this encounter Additional Health Concerns Infection Onset Date Last Indicated Resolved Time Rule Out COVID-19 01/14/2022 01/14/2022 01/14/2022 6:2 9 PM DIE DEVELOPER Rule Out COVID-19 03/08/2022 03/08/2022 03/08/2022 4:1 9 PM CDT Rule Out Pertussis 03/08/2022 03/08/2022 03/09/2022 9: 56 AM CDT Rule Out Pertussis 04/05/2022 04/05/2022 04/06/2022 10 :34 AM CDT documented as of this encounter Care Teams Instrument Mechanic Weapons System Relationship Specialty Start Date End Date Aydee Burton, PCP - General Nurse Practitioner - 05/17/21 PHOTOGRAPHIC LABORATORY SUPERVISOR METAL SANDER Family [address] [place] [address] [phone] Aydee Burton, Assigned PCP 04/28/21 PHOTOGRAPHIC LABORATORY SUPERVISOR METAL SANDER [address] [place] [address] [phone] Louisa Hood, Assigned Neuroscience 07/11/21 PHOTOGRAPHIC LABORATORY SUPERVISOR METAL SANDER Provider [address] [place], [place] [phone] Se Levy, Lead Ornament Stapler 08/05/21 05/12/22 [facility] 08/05/21 09/30/21 Worker Clari Ruiz Pharmacist Pharmacist 08/06/21 06/07/22 Jocelyn [facility] [address] [place], [place] [address] [place], Assigned Sleep 08/01/21 Angel Turcios, Provider [address] [place], [place] [address] Lesly Celaya MD Assigned Surgical 09/05/21 [address] [facility] [place] [address] Elizabeth Mcintyre CNM Assigned OBGYN 09/05/21 11/06/21 22[address] [facility] [place] [address] Tawana Patel MA [facility] 09/30/21 Worker Ramses Mcpherson Assigned OBGYN 11/07/21 MD Onesimo Provider [address] [place], [place] [phone] Marleny Maloney Financial Resource 01/17/22 01/17/22 Worker Obdulio Barrera MD Critical Care 01/24/[address] [place] [address] Obdulio Barrera, Assigned Pulmonology 02/06/22 MD Provider [address] [place] [address] 948175 Lesvia Stanley EP Cardiac Rehabilitation 03/03/22 03/03/23 [facility] Therapist [address] 879515 Marilia Deluna, PhD Assigned Behavioral 02/20/22 [address] [facility] Provider [place], [place] [phone] Niyah Decker, [facility] Pharmacist Pharmacist 03/07/22 [address] [facility] [address] [place], [place] [address] Clari Poole, Pharmacist Pharmacist 03/07/22 06/15/22 [facility] [address] [facility] [place] [address] Lesvia Stanley EP Cardiac Rehabilitation 03/17/22 03/17/23 [facility] Therapist [address] [facility] [place] [address] [place], [place] [address] Clari Ruiz Assigned MTM 04/09/22 05/27/22 Jocelyn [facility] Pharmacist [address] [place], [place] [address] Niyah Warner, Lead Ornament Stapler Primary Care - CC 06/27/22 RN Delia Avila, Pharmacist Pharmacist 06/07/22 [facility] 909 [place], [place] [address] Delia Avila, Assigned MTM 06/11/2206/24 [facility] Pharmacist [address] [place], [place] [address]315 Niyah Decker, [facility] Assigned MTM 05/28/22 06/10/22 420 [facility] 812 Pharmacist [place], [place] 393655 Mago Swift, [facility] Lead Ornament Stapler Staking Engineer - 08/05/21 Clinical Niyah Decker, [facility] Assigned MTM 06/25/22 07/29/22 420 [facility] 812 Pharmacist [place], [place] [address]205 Leela Jarvis, [facility] Pharmacist 07/26/22 05/15/23 [address] [facility] [address] [place] [phone] Niyah Decker, [facility] Assigned MTM 08/10/[address] [place] [address] 812 Pharmacist [place] [phone] documented as of this encounter
--- OUTSIDE RECORDS SUMMARY | 2022-09-21 04:19 | XMS_ITS | Encounter Summary ---
:1980 Author Organization [place] Address [address] [facility] [place] [address] Care Team Providers Name Role Phone Aydee Burton APRN, CNP Primary Care Provider [phone] Aydee Burton APRN MERCHANDISE HANDLER Unavailable [phone] Encounter Details Date Type Department Care Team Description 05/24/2021 Travel Social History Tobacco Use Types Packs/Day [...] How often do you attend yazdanism or adventist services? Never 08/05/2021 Do you [...] at Date Recorded Female 11/09/2021 7:53 PM ASSESSMENT TECHNICIAN COVID-19 Exposure Response Date Recorded In the last month, have you been in contact with No / Unsure 05/24/2021 8:25 PM CDT someone who was confirmed or suspected to have Coronavirus / COVID-19? documented as of this encounter Plan of Treatment Upcoming Encounters Date Type Specialty Care Team Description 09/26/2022 Appointment Speech Therapy Obdulio Barrera MD 420 [facility] 276 [place], [place] [phone] Anabel Chew, PENSION CONSULTANT [address] [place], [place] [address] 09/27/2022 Therapy Visit Physical Therapy Luisana Watkins, PT [address] [place] [address] 09/29/2022 Virtual Visit Pain & Palliative Marilia Deluna, [facility] PhD [address] [place] [address] 09/30/2022 Office Visit Family Practice Aydee Burton, GRINDER SETUP OPERATOR MERCHANDISE HANDLER [address] [place] [address] 477852 10/03/2022 Therapy Visit Physical Therapy Una Reardon, PT [address] [place] [address] 10/10/2022 Hospital Encounter Surgery Lesly Celaya MD [address] [place], [place] [phone] 10/10/2022 Office Visit Surgery Lesly Celaya MD [address] [place], [place] [phone] Ninoska Flowers PA-C [address] [place], [place] [address] 10/10/2022 Surgery Surgery Lesly Celaya, EXCISION, MASSES - MD back, abdomen, [address] extremity [place], [place] [phone] 10/11/2022 Virtual Visit Pharm Clari Stoll, [place] 811830 [address] [address] 10/14/2022 Appointment Speech Therapy Anabel Chew, PENSION CONSULTANT [address] 966865 10/21/2022 Office Visit Pulmonology Obdulio Barrera MD [address] [place] [address] 509415 10/25/2022 PRE VISIT ENT Charo Burton MD Previsit [address] [place] [address] 538025 10/25/2022 Office Visit Charo Carter MD [address] [place] [address] 649295 10/25/2022 Office Visit ENT Provider, Jeannette Ent Dysphonia Resident Care Manager 10/28/2022 Appointment Speech Therapy Anabel Chew, PENSION CONSULTANT [address] 292685 11/17/2022 Appointment Speech Therapy Anabel Chew, PENSION CONSULTANT [facility] [address] [facility] 396 [place], [place] [phone] 12/23/2022 Office Visit Neurology Colby Yeung MD [address] [address] Scheduled Procedures Name Priority Associated Diagnoses Date/Time EXCISION, MASS, TORSO Lipoma of skin and subcuta neous 10/10/2022 7:30 AM ASSESSMENT TECHNICIAN tissue documented as of this encounter Visit Diagnoses Not on filedocumented in this encounter Care Teams Sizer Hand Relationship Specialty Start Date End Date Aydee Burton, PCP - General Nurse Practitioner - 05/17/21 GRINDER SETUP OPERATOR MERCHANDISE HANDLER [facility] [address] [place] [address] [phone] Aydee Burton, Assigned PCP 04/28/21 GRINDER SETUP OPERATOR MERCHANDISE HANDLER [address] [place], [place] [phone] documented as of this encounter
--- OUTSIDE RECORDS SUMMARY | 2022-09-21 04:19 | XMS_ITS | Encounter Summary ---
:1980 Author Organization [place] Address [address] [facility] [place] [address] Care Team Providers Name Role Phone Aydee Burton ELEMENTARY LIBRARIAN PARTY PLAN SALES UNIT SALES LEADER Primary Care Provider [phone] Aydee Burton ELEMENTARY LIBRARIAN PARTY PLAN SALES UNIT SALES LEADER Unavailable [phone] Louisa Hood ELEMENTARY LIBRARIAN PARTY PLAN SALES UNIT SALES LEADER Unavailable [phone] Se Levy [employer] [facility] [employer] [employer] Unavailable Unavailable Anny Bernabe Unavailable Unavailable Clari Ruiz [facility] Unavailable [phone] Angel Hannah MD Unavailable Mago Swift SONOGRAM TECHNICIAN Unavailable Encounter Details Date Type Department Care Team Description 12/14/2020 Medical Correspondence [facility] Scan, CLINIC REFERRAL Health Info Mgmt Non-Provider [facility] [address] [place] [address] Social History Tobacco Use Types [...] How often do you attend voodoo or restorationism services? Never 08/05/2021 Do you [...] at Date Recorded Female 11/09/2021 7:53 PM MOSAIC TECHNICIAN COVID-19 Exposure Response Date Recorded In [...] [facility] [address] [place], [place] [address] Anabel Chew, SHOE PLANNER [address] [place] [address] 09/27/2022 Therapy Visit Physical Therapy Luisana Watkins, PT [address] [place] [address] 09/29/2022 Virtual Visit Pain & Palliative Marilia Deluna, Ronald PhD [address] [place] [address] 09/30/2022 Office Visit Family Practice Aydee Burton, ELEMENTARY LIBRARIAN PARTY PLAN SALES UNIT SALES LEADER [address] [place], [place] [phone] 10/03/2022 Therapy Visit Physical Therapy David-Una Tang, PT [address] [place] [phone] 10/10/2022 Hospital Encounter Surgery Lesly Celaya MD [address] [place] [address] 10/10/2022 Office Visit Surgery Lesly Celaya MD [address] [place] [address] Ninoska Flowers, PA-C [address] [place] [address] 10/10/2022 Surgery Surgery Lesly Celaya, EXCISION, MASSES - MD back, abdomen, [address] right lower [facility] [place] [address] 10/11/2022 Virtual Visit Clari Su, [facility] [address] 053214 10/14/2022 Appointment Speech Therapy Anabel Chew, SHOE PLANNER [facility] 516 [facility] 396 [place] [address] 10/21/2022 Office Visit Pulmonology Obdulio Barrera MD 420 [facility] 276 [place], [place] [phone] 10/25/2022 PRE VISIT ENT Charo Burton MD Previsit 909 [place] [address] 10/25/2022 Office Visit ENT Charo Burton MD 909 [place], [place] [address]35 10/25/2022 Office Visit ENT Provider, Jeannette Ent Dysphonia Oil And Gas Specialist 10/28/2022 Appointment Speech Therapy Anabel Chew, SHOE PLANNER [address] [address] 11/17/2022 Appointment Speech Therapy Anabel Chew, SHOE PLANNER [address] [address] 12/23/2022 Office Visit Neurology Colby Yeung MD [address] [place] [address] Scheduled Procedures Name Priority Associated Diagnoses Date/Time EXCISION, MASS, TORSO Lipoma of skin and subcuta neous 10/10/2022 7:30 AM MOSAIC TECHNICIAN tissue documented as of this encounter Visit Diagnoses Not on filedocumented in this encounter Care Teams Market Specialist Relationship Specialty Start Date End Date Aydee Burton, PCP - General Nurse Practitioner - 05/17/21 ELEMENTARY LIBRARIAN PARTY PLAN SALES UNIT SALES LEADER Family [address] [place] [address] [phone] Aydee Burton, Assigned PCP 04/28/21 ELEMENTARY LIBRARIAN PARTY PLAN SALES UNIT SALES LEADER [address] [place] [address] [phone] Louisa Hood, Assigned Neuroscience 07/11/21 ELEMENTARY LIBRARIAN PARTY PLAN SALES UNIT SALES LEADER Provider [address] [place] [address] [phone] Se Levy, Lead Pulmonary Physician 08/05/21 05/12/22 [facility] 08/05/21 09/30/21 Worker Clari Ruiz Pharmacist Pharmacist 08/06/21 06/07/22 Jocelyn [facility] [address] [place] [address] [place], Assigned Sleep 08/01/21 Angel Turcios, Provider [address] [place] [address] Mago Swift, [facility] Lead Pulmonary Physician Pelletizer - 08/05/21 Clinical documented as of this encounter
--- OUTSIDE RECORDS SUMMARY | 2022-09-21 04:19 | XMS_ITS | Encounter Summary ---
:1980 Author Organization [place] Address [address] [place] [address] Care Team Providers Name Role Phone Aydee Burton APRN, CNP Primary Care Provider [phone] Aydee Burton APRN ROVING TELLER Unavailable [phone] Encounter Details Date Type Department Care Team Description 05/17/2021 Travel Social History Tobacco Use Types Packs/Day [...] How often do you attend judaism or orthodoxy services? Never 08/05/2021 Do you [...] at Date Recorded Female 11/09/2021 7:53 PM QA SOFTWARE TESTER COVID-19 Exposure Response Date Recorded In the last month, have you been in contact with No / Unsure 05/17/2021 7:03 AM CDT someone who was confirmed or suspected to have Coronavirus / COVID-19? documented as of this encounter Plan of Treatment Upcoming Encounters Date Type Specialty Care Team Description 09/26/2022 Appointment Speech Therapy Obdulio Barrera MD [address] [facility] [place] [address] [place], [place] [phone] Anabel Chew, WEIGHT SHIFTER [address] [place], [place] [address] 09/27/2022 Therapy Visit Physical Therapy Luisana Watkins, PT [address] [place] [address] 09/29/2022 Virtual Visit Pain & Palliative Marilia Deluna, [facility] [place] PhD [address] [place] [address] 09/30/2022 Office Visit Family Practice Aydee Burton, BALLING MACHINE OPERATOR ROVING TELLER [address] [place] [address] [phone] 10/03/2022 Therapy Visit Physical Therapy Una Reardon, PT [address] [place] [address] 10/10/2022 Hospital Encounter Surgery Lesly Celaya MD [address] [place] [phone] 10/10/2022 Office Visit Surgery Lesly Celaya MD [address] [place], [place] [phone] Ninoska Flowers PA-C [address] [place], [place] [phone] 10/10/2022 Surgery Surgery Lesly Celaya, EXCISION, MASSES - MD back, abdomen, [address] extremity [place], [place] [phone] 10/11/2022 Virtual Visit Pharm Clari Stoll, [place] [phone] [address] [address] 10/14/2022 Appointment Speech Therapy Anabel Chew, WEIGHT SHIFTER [address] [phone] 10/21/2022 Office Visit Pulmonology Obdulio Barrera MD [address] [place] [phone] 10/25/2022 PRE VISIT ENT Charo Burton MD Previsit [address] [place] [phone] 10/25/2022 Office Visit Charo Carter MD [address] [place] [phone] 10/25/2022 Office Visit ENT Provider, Jeannette Ent Dysphonia Vehicle Maintenance Technician 10/28/2022 Appointment Speech Therapy Anabel Chew, WEIGHT SHIFTER [address] [phone] 11/17/2022 Appointment Speech Therapy Anabel Chew, WEIGHT SHIFTER [facility] [address] [facility] [place] [address] [place], [place] [phone] 12/23/2022 Office Visit Neurology Colby Yeung MD [address] [place] [address] Scheduled Procedures Name Priority Associated Diagnoses Date/Time EXCISION, MASS, TORSO Lipoma of skin and subcuta neous 10/10/2022 7:30 AM QA SOFTWARE TESTER tissue documented as of this encounter Visit Diagnoses Not on filedocumented in this encounter Care Teams Viner Operator Relationship Specialty Start Date End Date Aydee Burton, PCP - General Nurse Practitioner - 05/17/21 BALLING MACHINE OPERATOR ROVING TELLER [facility] [address] [place] [address] [phone] Aydee Burton, Assigned PCP 04/28/21 BALLING MACHINE OPERATOR ROVING TELLER [address] [place], [place] [phone] documented as of this encounter
--- OUTSIDE RECORDS SUMMARY | 2022-09-21 04:19 | XMS_ITS | Encounter Summary ---
:1980 Author Organization [place] Address [address] [address] Care Team Providers Name Role Phone Aydee Burton APRN, CNP Primary Care Provider Aydee Burton APRN FACE CLEANER Unavailable [phone] Reason for Visit Reason Comments UTI With Low back pain Encounter Details Date Type Department Care Team Description 05/28/2021 Office Visit [facility] Brigid Noriega MD Dysuria (Primary Dx); [facility] [address] [facility] Urinary tract infection without hematuri a, site unspecified [address] [place], [place] [phone] Social History Tobacco Use Types Packs/Day Years [...] How often do you attend nondenominational or uatsdin services? Never 08/05/2021 Do you [...] at Date Recorded Female 11/09/2021 7:53 PM NEUROLOGY PHYSICIAN COVID-19 Exposure Response Date Recorded In the last month, have you been in contact with No / Unsure 05/28/2021 12:01 PM CDT someone who was confirmed or suspected to have Coronavirus / COVID-19? documented as of this encounter Last Filed Vital Signs Vital Sign Reading Time Taken Comments Blood Pressure 124/80 05/28/2021 2:25 PM CDT Pulse 106 05/28/2021 2:25 PM CDT Temperature 36.8 ??C (98.3 ??F) 05/28/2021 2:25 PM CDT Respiratory Rate 18 05/28/2021 2:25 PM CDT Oxygen Saturation 96% 05/28/2021 2:25 PM CDT Inhaled Oxygen Concentration - - Weight 93.4 kg (206 lb) 05/28/2021 2:25 PM CDT Height - - Body Mass Index 32.26 05/17/2021 7:16 AM CDT documented in this encounter Progress Notes Brigid Noriega MD - 05/28/2021 2:20 PM CDT Assessment & Plan Dysuria - UA with Microscopic - lab collect; Future - UA with Microscopic - lab collect - Urine Microscopic Exam Urinary tract infection without hematuria, site unspecified - patient was in [facility] urgent care Started on ciprofloxacin Feeling better , recommend to continue antibiotics 3 additional day of antibiotics provided Will reach out with urine culture results. - Urine Culture Aerobic Bacterial - lab collect - ciprofloxacin (CIPRO) 500 MG tablet; Take 1 tablet (500 mg) by mouth 2 times daily - ciprofloxacin (CIPRO) 500 MG tablet; Take 1 tablet (500 mg) by mouth 2 times daily for 3 days BMI: Estimated body mass index is 32.26 kg/m?? as calculated from the following: Height as of 05/17/21: 1.702 m (5' 7). Weight as of this encounter: 93.4 kg (206 lb). Weight management plan: Patient was referred to their PCP to discuss a diet and exercise plan. Depression Screening Follow Up PHQ 05/28/2021 PHQ-9 Total Score 16 Q9: Thoughts of better off /self-harm past 2 weeks Not at all Follow Up Actions Taken Recommend follow up with pcp for depression . [facility] 41 year old who presents for the following health issues HPI From Triage note 05/28/21 12:10PM: Pt calling to report they were seen and diagnosed with a UTI on Monday05/24/21, was was prescribed antibiotics. Today pt reports they've developed pain on their bilateral flank and also their lower abdomen. Pt reports pain 6/10. Unsure if there is blood in their urine as the medication they are on turns the urine an orange color. Denies fevers or burning sensation when urinating. Has been treating with OTC Ibuprofen. Pt Had UA and Culture done [facility], we do not have the results. Was also given Diflucan 05/26/21, but DID NOT TAKE IT. Genitourinary - Female Onset/Duration: Back pain started today, 4 days for UTI sx Description: Painful urination (Dysuria): YES, better than before. Still burning after urination Frequency: YES Blood in urine (Hematuria): no Delay in urine (Hesitency): YES, Very little Intensity: moderate- Back pain Progression of Symptoms: Improving UTI sx, Back pain- worsening Accompanying Signs & Symptoms: Fever/chills: no Flank pain: YES- Both sides readiting to the front. Nausea and vomiting: no Vaginal symptoms: none Abdominal/Pelvic Pain: YES, little lower pelvic pain History: History of frequent UTI???s: no History of kidney stones: no Sexually Active: YES Possibility of : No Precipitating or alleviating factors: Sitting makes it better, Ibuprofen- not effective Review of Systems Constitutional: Negative for fatigue and fever. Genitourinary: Positive for dysuria. Negative for hematuria, menstrual problem and pelvic pain. Musculoskeletal: Negative for back pain. Neurological: Negative for headaches. Psychiatric/Behavioral: Negative for confusion and decreased concentration. Objective BP 124/80 Pulse 106 Temp 98.3 ??F (36.8 ??C) (Oral) Resp 18 Wt 93.4 kg (206 lb) LMP 05/10/2021 SpO2 96% BMI 32.26 kg/m?? Body mass index is 32.26 kg/m??. Physical Exam HENT: Head: Normocephalic. Cardiovascular: Rate and Rhythm: Normal rate. Pulses: Normal pulses. Abdominal: General: There is no distension. Tenderness: There is no abdominal tenderness. There is no rebound. Neurological: General: No focal deficit present. documented in this encounter Plan of Treatment Upcoming Encounters Date Type Specialty Care Team Description 09/26/2022 Appointment Speech Therapy Obdulio Barrera MD [address] [facility] [address] [place], [place] [address] Anabel Chew, DITCH WORKER [address] [place], [place] [address] 09/27/2022 Therapy Visit Physical Therapy Luisana Watkins, PT [address] [place] [address] 09/29/2022 Virtual Visit Pain & Palliative Marilia Deluna, [facility] PhD [address] [place] [address] 09/30/2022 Office Visit Family Practice Aydee Burton, ELADIO FACE CLEANER [address] [place] [phone] 10/03/2022 Therapy Visit Physical Therapy Una Reardon, PT [address] [place] [address] 10/10/2022 Hospital Encounter Surgery Lesly Celaya MD [address] [place] [address] 10/10/2022 Office Visit Surgery Lesly Celaya MD [address] [place] [address] Ninoska Flowers PA-C [address] [place] [address] 10/10/2022 Surgery Surgery Lesly Celaya, EXCISION, MASSES - MD back, abdomen, [address] [place] [address] 10/11/2022 Virtual Visit Pharm Clari Stoll, [place] [address] [place] [phone] [place], [place] [address] 10/14/2022 Appointment Speech Therapy Anabel Chew, DITCH WORKER [facility] [address] [facility] [address] [place] [address] 10/21/2022 Office Visit Pulmonology Obdulio Barrera MD [address] [facility] [address] [place] [address] 10/25/2022 PRE VISIT Charo Carter MD Previsit [address] [place], [place] [phone] 10/25/2022 Office Visit Charo Carter MD [address] [place] [address] 10/25/2022 Office Visit ENT Provider, Jeannette Ent Dysphonia Oven Equipment Repairer 10/28/2022 Appointment Speech Therapy Anabel Chew, CELINE [address] [address] 11/17/2022 Appointment Speech Therapy Anabel Chew SLP [address] [phone] 12/23/2022 Office Visit Neurology Colby Yeung MD [address] [place] [address] Scheduled Procedures Name Priority Associated Diagnoses Date/Time EXCISION, MASS, TORSO Lipoma of skin and subcuta neous 10/10/2022 7:30 AM NEUROLOGY PHYSICIAN tissue documented as of this encounter Procedures Procedure Name Priority Date/Time Associated Diagnosis Comme nts URINE CULTURE Add-On 05/28/2021 3:13 PM Urinary tract Results for this CDT infection without procedure are in hematuria, site the results unspecified section. ROUTINE UA WITH Routine 05/28/2021 2:10 PM Dysuria Result s for this MICROSCOPIC CDT procedure are i n the results section. URINE MICROSCOPIC Routine 05/28/2021 2:10 PM Dysuria Resu lts for this EXAM CDT procedure are i n the results section. documented in this encounter Results Urine Culture Aerobic Bacterial - lab collect (05/28/2021 3:13 PM CDT) P athologist Signature Culture No Growth NIKOLAS 05/29/2021 UU IDD 10:31 PM CDT LABORATORY Specimen Anatomical Collection Method Collection Time Receive d Time (Source) Location / / Volume Laterality Urine MID-STREAM URINE Non-blood 05/28/2021 3:13 PM 05/28 3:13 SPECIMEN / Unknown Collection / CDT PM CDT Unknown Brigid Noriega MD LAB - MICRO GENERAL ORDERABL ES Performing Organization Address City/State/ZIP Code Phon e Number [facility] IDD LABORATORY [facility] [place] [address] [facility], [address] [facility] IDD LABORATORY [facility] Infectious [place], [place] [phone] Diseases Diagnostic [phone], [place] Lab (IDDL) [address] [facility], Room [address]297 (ABNORMAL) Urine Microscopic Exam (05/28/2021 2:10 PM CDT) [facility] Method Time Signature Bacteria Urine Moderate (A) None Seen NIKOLAS 05/28/2021 [facility] LABORATO RY /HPF 2:36 PM CDT RBC Urine 0-2 0-2 /HPF NIKOLAS 05/28/2021 [facility] LABORATORY /HPF 2:36 PM CDT WBC Urine 0-5 0-5 /HPF NIKOLAS 05/28/2021 [facility] /HPF 2:36 PM CDT Squamous Few (A) None Seen NIKOLAS 05/28/2021 [facility] LABORATORY Epithelials /LPF 2:36 PM CDT Urine Specimen Anatomical Collection Method Collection Time Receive d Time (Source) Location / / Volume Laterality Urine MID-STREAM URINE Non-blood 05/28/2021 2:10 PM 05/28 2:10 SPECIMEN / Unknown Collection / CDT PM CDT Unknown Brigid Noriega MD LAB - URINE ORDERABLES Performing Organization Address City/State/ZIP Code [place] [address] Lab [address] [facility] Lab (no room number, 1st floor of clinic) [place] [address], [facility] [address] [facility] Lab (no room number, 1st floor of clinic) (ABNORMAL) UA with Microscopic - lab collect (05/28/2021 2:10 PM CDT) [facility] Method Time Signature Color Urine Yellow Colorless, 05/28/2021 [facility]ORAT[facility] Straw, 2:35 PM CDT Light Yellow, Yellow Appearance Urine Clear Clear 05/28/2021 LV LABORATOR Y 2:35 PM CDT Glucose Urine Negative Negative 05/28/2021 LABORATORY mg/dL 2:35 PM CDT Bilirubin Urine Negative Negative 05/28/2021 [facility] LAB[facility]AT[facility] 2:35 PM CDT Ketones Urine Negative Negative 05/28/2021 LABORATORY mg/dL 2:35 PM CDT Specific [place] <=1.005 1.003 - 05/28/2021 LV LABORATOR Y Urine 1.035 2:35 PM CDT Blood Urine Trace (A) Negative 05/28/2021 [facility]AT[facility] 2:35 PM CDT pH Urine 5.0 5.0 - 7.0 05/28/2021 [facility] 2:35 PM CDT Protein Albumin 30 (A) Negative 05/28/2021 LABORATORY Urine mg/dL 2:35 PM CDT Urobilinogen 0.2 0.2, 1.0 05/28/2021 LABORATORY Urine E.U./dL 2:35 PM CDT Nitrite Urine Positive Negative 05/28/2021 LABORATORY (A) 2:35 PM CDT Leukocyte Negative Negative 05/28/2021 LABORATORY Esterase Urine 2:35 PM CDT Specimen Anatomical Collection Method Collection Time Receive d Time (Source) Location / / Volume Laterality Urine MID-STREAM URINE Non-blood 05/28/2021 2:10 PM 05/28 2:10 SPECIMEN / Unknown Collection / CDT PM CDT Unknown Brigid Noriega MD LAB - URINE ORDERABLES Performing Organization Address City/State/ZIP Code [place] Number [place] [address] Lab [address] [facility] Lab (no room number, 1st floor of clinic) [place] [address], [facility] [address] [facility] Lab (no room number, 1st floor of clinic) documented in this encounter Visit Diagnoses Diagnosis Dysuria - Primary Urinary tract infection without hematuri a, site unspecified Lipoma of skin and subcutaneous tissue Lipoma of other skin and subcutaneous ti ssue documented in this encounter Additional Health Concerns Assessment Noted Time PHQ-9 Depression Total Score: 16 05/28/2021 2:58 PM CD T documented as of this encounter Care Teams Air Conditioning Unit Tester Relationship Specialty Start Date End Date Aydee Burton, PCP - General Nurse Practitioner - 05/17/21 KEY PUNCH TEACHER FACE CLEANER Family [address] [facility], [place] [address] Aydee Burton, Assigned PCP 04/28/21 KEY PUNCH TEACHER FACE CLEANER [address] [facility], [place] [address] documented as of this encounter
== END 2022-09-21 03:53 | disposition home or self-care (01) ==
LOC: ED 03:53
PROVIDERS: Emergency Provider Family Medicine
DX: S16.1XXA Strain of muscle, fascia and tendon at neck level, initial encounter (principal)
CPT/HCPCS: 99282; 99283; 99284; J7512